=== PATIENT | female | born 1950 | race Caucasian/White ===

== ENCOUNTER 2023-03-23 07:19 | Outpatient (OUT) | payer MEDICARE, SELFPAY ==
[2023-03-23 07:58] LABS: Basophils Absolute Auto 0.1 10^3/uL (0.0-0.1); Basophils Percent Auto 0.5 % (0.2-2.0); Eosinophils Absolute Auto 0.3 10^3/uL (0.0-0.7); Eosinophils Percent Auto 2.8 % (0.9-7.0); Hematocrit 37.1 % (36.0-48.0); Hemoglobin 12.1 g/dL (12.0-16.0); Immature Granulocytes Abs Auto 0.05 10^3/uL (0.00-0.03); Immature Granulocytes Pct Auto 0.5 % (0.0-0.5); Lymphocytes Absolute Auto 1.7 10^3/uL (1.2-3.8); Lymphocytes Percent Auto 17.6 % (20.5-60.0); Mean Corpuscular HGB Conc 32.6 g/dL (29.9-35.2); Mean Corpuscular Hemoglobin 32.1 pg (26.7-34.0); Mean Corpuscular Volume 98.4 fL (81.0-99.0); Mean Platelet Volume 9.7 fL (9.5-13.5); Monocytes Absolute Auto 0.7 10^3/uL (0.3-0.8); Monocytes Percent Auto 7.6 % (1.7-12.0); Neutrophils Absolute Auto 6.9 10^3/uL (1.4-6.5); Platelet Count 232 10^3/uL (150-450); Red Blood Count 3.77 10^6/uL (4.20-5.40); Red Cell Distribution Width 13.7 % (11.0-15.0); White Blood Count 9.7 10^3/uL (4.0-11.0)
[2023-03-23 08:17] LABS: Estimated Average Glucose 128 mg/dL; Glycohemoglobin A1C 6.1 % (4.5-6.2)
[2023-03-23 12:11] LABS: Alanine Aminotransferase 12 U/L (14-59); Albumin Globulin Ratio 0.8; Albumin Level 3.3 g/dL (3.4-5.0); Alkaline Phosphatase 96 U/L (46-116); Anion Gap 15.4; Aspartate Amino Transferase 17 U/L (15-37); BUN Creatinine Ratio 17.9; Bilirubin Total 0.5 mg/dL (0.2-1.0); Calcium 9.3 mg/dL (8.5-10.1); Carbon Dioxide 19.9 mmol/L (21.0-32.0); Chloride 109 mmol/L (98-107); Chol HDL Ratio 2.3; Cholesterol 155 mg/dL (<=200); Estimated GFR (African America 30 (>=60); Estimated GFR (Non-African Ame 25 (>=60); Free T3 2.06 pg/mL (2.18-3.98); Globulin 4.2 g/dL; Glucose 97 mg/dL (74-106); HDL Cholesterol 68 mg/dL (40-60); Potassium 4.3 mmol/L (3.5-5.1); Sodium 140 mmol/L (136-145); Thyroid Stimulating Hormone 1.892 uIU/mL (0.358-3.740); Total Protein 7.5 g/dL (6.4-8.2); Triglycerides 96 mg/dL (<=150); VLDL CHOLESTEROL 19.2 mg/dL
[2023-03-24 11:13] LABS: Insulin 9.4 uIU/mL (2.6-24.9)
== END 2023-03-23 07:20 | disposition home or self-care (01) ==
LOC: LAB 07:19
PROVIDERS: PCP Family Medicine; Visit Provider Family Medicine
DX: I10 Essential (primary) hypertension (principal); E11.9 Type 2 diabetes mellitus without complications; K21.9 Gastro-esophageal reflux disease without esophagitis; G45.8 Other transient cerebral ischemic attacks and related syndromes; E78.5 Hyperlipidemia, unspecified; D64.9 Anemia, unspecified; E55.9 Vitamin D deficiency, unspecified; R47.1 Dysarthria and anarthria
CPT/HCPCS: 36415; 80053; 80061; 82306; 82607; 82728; 82746; 83036; 83525; 83540; 83880; 84436; 84443; 84481; 85025

== ENCOUNTER 2023-05-22 07:30 | Outpatient (OUT) | payer MEDICARE, SELFPAY ==
[2023-05-22 08:10] LABS: Bilirubin Urine NEGATIVE (NEGATIVE); Blood Urine NEGATIVE (NEGATIVE); Clarity Urine CLEAR (CLEAR); Color Urine DK. ORANGE (YELLOW); Glucose Urine UA NEGATIVE (NEGATIVE); Ketones Urine NEGATIVE (NEGATIVE); Leukocyte Esterase Urine SMALL (NEGATIVE); Nitrite Urine POSITIVE (NEGATIVE); Protein Urine TRACE mg/dL (NEG/TRACE); pH Urine 5.5 (5.0-9.0)
[2023-05-22 08:36] LABS: Bacteria Urine TRACE #/HPF (NONE SEEN); Mucus Urine NONE SEEN (NONE SEEN); RBC Urine NONE SEEN #/HPF (0-2); Squamous Epithelial Cell Urine FEW #/LPF (NONE/RARE)
[2023-05-22 08:38] LABS: Renal Epithelial Cells Urine RARE #/LPF (NONE SEEN)
[2023-05-22 08:39] LABS: Urine Culture Indicated ALREADY ORDERED
== END 2023-05-22 07:31 | disposition home or self-care (01) ==
LOC: LAB 07:31
PROVIDERS: PCP Family Medicine; Visit Provider Family Medicine
DX: N39.0 Urinary tract infection, site not specified (principal)
CPT/HCPCS: 81001; 87086; 87150; 87186

== ENCOUNTER 2023-06-18 08:11 | Outpatient (OUT) | payer MEDICARE, SELFPAY ==
--- NOTE | 2023-06-18 08:15 | VEIN_ITS ---
Patient: EDIN SAMANIEGO Exam Date: 06/18/2023 : 1950 Gender:F Ordering : DR Alvaro Harp . Admission #: [id number] Family : Order #: [id number] CLICK HERE TO VIEW EXAM RADIOLOGY REPORT PROCEDURE: VC EXT VENOUS REFLUX ANGELIQUE LMTD COMPARISON: None. INDICATIONS: Localized edema R60.0 TECHNIQUE: Duplex imaging of the lower extremity to assess the deep and superficial venous system for the presence of deep or superficial venous incompetence and to document the location and severity of disease. The study includes evaluation of the great saphenous vein (GSV), anterior accessory saphenous vein (AASV) and small saphenous vein (SSV). Patient scanned in reverse Trendelenburg and standing. FINDINGS: RIGHT LOWER EXTREMITY: Saphenofemoral Junction Reflux: Yes 6.0mm 0.3 sec GSV: Diam (mm) Reflux/ Time (sec) Proximal Thigh 5.9 Yes 0.4 Mid Thigh 3.3 No Distal Thigh 3.2 Yes 0.3 Prox Calf 3.0 Yes 0.3 Mid Calf 3.3 Yes 0.5 Saphenopopliteal Junction Reflux: 5.0mm Yes 0.4 SSV: Proximal Calf 6.2 Yes 0.4 Mid Calf 2.5 Yes 0.3 AASV: Not present Thrombi: No acute or chronic thrombus. Compressibility: Normal. Flow: Mild deep venous reflux. Fitting Room Operator: Dist medial lower leg 5.3 mm with 0.7s reflux. Tech Note: Incompetent varicose vein proximal medial lower leg measures 2.4 mm with 0.4s reflux. LEFT LOWER EXTREMITY: Saphenofemoral Junction Reflux: Yes 6.6 mm 0.3 sec GSV: Diam (mm) Reflux/Time (sec) Proximal Thigh 5.7 Yes 0.3 Mid Thigh 3.6 No Distal Thigh 3.2 Yes 0.5 Prox Calf 1.7 Yes 0.8 Mid Calf 1.6 Yes 0.2 Saphenopopliteal Junction Relux: 2.9 mm Yes 0.5 SSV: Proximal Calf 3.0 Yes 0.2 Mid Calf 3.3 Yes 0.4 AASV: Proximal Thigh 3.4 Yes 0.2 Mid Thigh 3.5 Yes 0.3 Distal Thigh Thrombi: Small segment of partial chronic thrombus in prox SSV. Compressibility: Partial thrombus proximal SSV. Flow: Minimal deep venous reflux. Fitting Room Operator: Distal medial lower leg 2.4 mm with 0.6s reflux. Tech Note: Varicose vein mid medial lower leg measures 1.9 mm without reflux. CONCLUSION: 1. Minimal right and mild left great saphenous vein venous insufficiency 2. Small segment partial chronic thrombus left small saphenous vein 3. Mild right and minimal left deep vein reflux 4. Incompetent right leg perforating vein measuring 5.3 mm Dictated by: Jesu Solano MD on 06/18/2023 at 10:31 Approved by: Jesu Solano MD on 06/18/2023 at 10:33
== END 2023-06-18 08:12 | disposition home or self-care (01) ==
LOC: VC 08:12
PROVIDERS: PCP Family Medicine; Visit Provider Family Medicine
DX: R60.0 Localized edema (principal)
CPT/HCPCS: 93970

== ENCOUNTER 2023-08-21 08:38 | Outpatient (OUT) | payer MEDICARE, SELFPAY ==
--- NOTE | 2023-08-21 08:41 | MR_ITS ---
The [address] [address] Patient Name: EDIN SAMANIEGO MRN: [id number] date: 1950 Sex: F Assigned Patient Location: MRI Current Patient Location: MRI Accession/Order Number: [id number] Exam Date: 08/21/2023 08:55 Report Date: 08/21/2023 10:12 At the request of: KRZYSZTOF THOMPSON Procedure: MR head/brain wo con EXAM: MR head/brain wo con HISTORY: Tension Headache G44.209 COMPARISON: November 2022 MRI brain TECHNIQUE: Sagittal T1, axial T2, axial flair, axial DWI, axial T1, axial GRE FINDINGS: Subtle 4 mm diffusion hyperintensity left central white matter. 3, 4 mm additional areas of diffusion hyperintensity in left inferior cerebellum. There is mild to moderate parenchymal volume loss. There is moderate, patchy T2 hyperintensity in the central central white matter, periventricular white matter, and donavon. Focal encephalomalacia left occipital and parietal lobes. Remote lacunar infarcts of the basal ganglia, thalami, and cerebral hemispheres. There is no mass, mass effect, nor hydrocephalus. The vascular flow voids are patent. The extra-axial structures appear normal. The internal auditory canals and mastoid air cells appear normal. There is mild maxillary and ethmoid sinus mucosal thickening. The orbits, sella, and craniocervical junction appear unremarkable. MR/MR head/brain wo con IMPRESSION: Subtle areas of diffusion hyperintensity left central white matter and left inferior cerebellum. These are dark on the ADC map and favor subacute small infarcts. Moderate underlying T2 hyperintensity white matter and donavon. Most likely sequela small vessel ischemic change or other demyelinating process. Remote appearing lacunar infarcts of the basal ganglia, thalami, and cerebellar hemispheres. 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
== END 2023-08-21 08:39 | disposition home or self-care (01) ==
LOC: MRI 08:38
PROVIDERS: PCP Family Medicine; Visit Provider Family Medicine
DX: G44.209 Tension-type headache, unspecified, not intractable (principal)
CPT/HCPCS: 70551

== ENCOUNTER 2023-08-23 13:01 | Outpatient (OUT) | payer MEDICARE, SELFPAY ==
--- NOTE | 2023-08-23 | MM_ITS ---
Patient Name: EDIN SAMANIEGO MR#: [id number] : 1950 Exam Date: 08/23/2023 Ordering Doctor: DR KRZYSZTOF THOMPSON . RADIOLOGY REPORT PROCEDURE: MM TOMOSYNTHESIS SCREENING BI COMPARISON: MG MAMM SCREEN 3D ANGELIQUE CAD, 10/27/2021. MG MAMM SCREEN ANGELIQUE W CAD, 10/22/2020. INDICATIONS: Angelique Screening Mammogram Calculator Name NCI Breast Cancer Risk Assessment Tool 5 Year Breast Cancer Risk 1.40% Lifetime Breast Cancer Risk 3.00% Personal Breast Cancer No Personal Ovarian Cancer No Treatments None Family Cancers Aunt-maternal with breast cancer at age 40. LOCATION: [facility] BREAST COMPOSITION: Scattered areas fibroglandular density. FINDINGS: DIAGNOSTIC CATEGORY 2--BENIGN FINDING. NO CHANGE FROM COMPARISON. Scattered benign-appearing calcifications are present. Scattered benign-appearing lymph nodes are present. RIGHT BREAST: No significant suspicious finding. LEFT BREAST: No significant suspicious finding. RECOMMENDATIONS: ROUTINE MAMMOGRAM AND CLINICAL EVALUATION IN 12 MONTHS. PLEASE NOTE: A NORMAL MAMMOGRAM DOES NOT EXCLUDE THE POSSIBILITY OF BREAST CANCER. A CLINICALLY SUSPICIOUS PALPABLE LUMP SHOULD BE BIOPSIED. Dictated by: Jesu Solano MD on 08/24/2023 at 08:24 Approved by: Jesu Solano MD on 08/24/2023 at 08:28
== END 2023-08-23 13:02 | disposition home or self-care (01) ==
LOC: MAMMO 13:01
PROVIDERS: PCP Family Medicine; Visit Provider Family Medicine
DX: Z12.31 Encounter for screening mammogram for malignant neoplasm of breast (principal); Z80.3 Family history of malignant neoplasm of breast
CPT/HCPCS: 77063; 77067

== ENCOUNTER 2023-10-03 16:24 | Outpatient (REF) | payer MEDICARE, SELFPAY ==
--- OUTSIDE RECORDS SUMMARY | 2023-10-03 16:29 | XMS_ITS | CCD ---
Author Name Unknown Address [address] [facility] [address] [place] [address] Organization [facility] Care Team Providers Care Salvager Helper Name Role Phone PHYSICIAN, DEFAULT Admitting Unavailable PHYSICIAN, DEFAULT Attending Unavailable MONTSE MARIA Primary Care Unavailable PHYSICIAN, DEFAULT Admitting Unavailable PHYSICIAN, DEFAULT Attending Unavailable MONTSE MARIA Primary Care Unavailable PHYSICIAN, DEFAULT Admitting Unavailable PHYSICIAN, DEFAULT Attending Unavailable MONTSE MARIA Primary Care Unavailable PHYSICIAN, DEFAULT Admitting Unavailable PHYSICIAN, DEFAULT Attending Unavailable MONTSE MARIA Primary Care Unavailable UNKNOWN, PROVIDER Admitting Unavailable UNKNOWN, PROVIDER Attending Unavailable KRZYSZTOF HARP Referring Unavailable JASONY, KRZYSZTOF Primary Care Unavailable RODRIGUEZ RIVERA Attending Unavailable HOY ., DR BLANKENSHIP Attending Unavailable HOY ., DR BLANKENSHIP Consulting Unavailable HOY ., DR BLANKENSHIP Primary Care Unavailable HOY ., DR BLANKENSHIP Admitting Unavailable CONDE, DR GODWIN Cardona Consulting Unavailable HOY ., DR BLANKENSHIP Consulting Unavailable HOY ., DR BLANKENSHIP Attending Unavailable HOY ., DR BLANKENSHIP Primary Care Unavailable HOY ., DR BLANKENSHIP Admm[place] Unavailable ZIEBER, DR VISHNU Erazo Consulting Unavailable CHRISTIANO MORALES Consulting Unavailable HOY ., DR BLANKENSHIP [place] Unavailable HOY ., DR BLANKENSHIP Attending Unavailable HOY ., DR BLANKENSHIP Consulting Unavailable HOY ., DR BLANKENSHIP Primary Care Unavailable ZIEBER, DR VISHNU Erazo Consulting Unavailable HOY ., DR BLANKENSHIP Consulting Unavailable HOY ., DR BLANKENSHIP Attending Unavailable HOY ., DR BLANKENSHIP Primary Care Unavailable HOY ., DR BLANKENSHIP Admitting Unavailable HOY ., DR BLANKENSHIP Attending Unavailable HOY ., DR BLANKENSHIP Consulting Unavailable HOY ., DR BLANKENSHIP Primary Care Unavailable HOY ., DR BLANKENSHIP Admitting Unavailable LEONEL ., APRIL Admitting Unavailable LENOEL ., APRIL Attending Unavailable HOY ., DR BLANKENSHIP Primary Care Unavailable ZIEBER, DR VISHNU Erazo Consulting Unavailable HAY ., DR STRATTON Consulting Unavailable DERMESSI, GONZALEZ Consulting Unavailable LEONEL ., APRIL Consulting Unavailable HOY ., DR BLANKENSHIP Attending Unavailable HOY ., DR BLANKENSHIP Consulting Unavailable HOY ., DR BLANKENSHIP Primary Care Unavailable HOY ., DR BLANKENSHIP Admitting Unavailable ZIEBER, DR VISHNU Erazo Consulting Unavailable PAY ., DR JACINTO Consulting Unavailable JUMMA, MOJOSE Consulting Unavailable BOYD, VANESSA Consulting Unavailcyndy ELAINE, RAVEN Consulting Unavailable COATNATALIIA Leos Consulting Unavailable HOY ., DR BLANKENSHIP Admitting Unavailable HOY ., DR BLANKENSHIP Attending Unavailable HOY ., DR BLANKENSHIP Primary Care Unavailable HOY ., DR BLANKENSHIP Consulting Unavailable SAMSA ., JN Admitting Unavailable HOY ., DR BLANKENSHIP Primary Care Unavailable SAMSA ., JN Attending Unavailable HOY ., DR BLANKENSHIP Consulting Unavailable HOY ., DR BLANKENSHIP Attending Unavailable HOY ., DR BLANKENSHIP Primary Care Unavailable HOY ., DR BLANKENSHIP [place] Unavailable HOY ., DR BLANKENSHIP Consulting Unavailable HOY ., DR BLANKENSHIP Attending Unavailable HOY ., DR BLANKENSHIP Primary Care Unavailable HOY ., DR BLANKENSHIP [place] Unavailable HOY ., DR BLANKENSHIP Attending Unavailable HOY ., DR BLANKENSHIP Consulting Unavailable HOY ., DR BLANKENSHIP Primary Care Unavailable HOY ., DR BLANKENSHIP [place] Unavailable ZIEBER, DR VISHNU Erazo Consulting Unavailable HOY ., DR BLANKENSHIP [place] Unavailable HOY ., DR BLANKENSHIP Attending Unavailable HOY ., DR BLANKENSHIP Consulting Unavailable HOY ., DR BLANKENSHIP Primary Care Unavailable ZIEBER, DR VISHNU Erazo Consulting Unavailable HOY ., DR BLANKENSHIP Attending Unavailable HOY ., DR BLANKENSHIP Consulting Unavailable HOY ., DR BLANKENSHIP Primary Care Unavailable HOY ., DR BLANKENSHIP [place] Unavailable HOY ., DR BLANKENSHIP [place] Unavailable HOY ., DR BLANKENSHIP Attending Unavailable HOY ., DR BLANKENSHIP Consulting Unavailable HOY ., DR BLANKENSHIP Primary Care Unavailable WEST, DR GODWIN Cardona Consulting Unavailable HOY ., DR BLANKENSHIP Attending Unavailable HOY ., DR BLANKENSHIP Consulting Unavailable HOY ., DR BLANKENSHIP Primary Care Unavailable HOY ., DR BLANKENSHIP Ad[place] Unavailable WEST, DR GODWIN Cardona Consulting Unavailable HOY ., DR BLANKENSHIP Attending Unavailable HOY ., DR BLANKENSHIP Consulting Unavailable HOY ., DR BLANKENSHIP Primary Care Unavailable DR KRZYSZTOF HUDSON Admitting Unavailable EDWIN, DR VISHNU Erazo Consulting Unavailable LEONEL Kenny, APRIL Consulting Unavailable LEONEL Kenny, APRIL Admitting Unavailable LEONEL Kenny, APRIL Attending Unavailable DONNA Kenny, DR BLANKENSHIP Primary Care Unavailable DONNA Kenny, DR BLANKENSHIP Admitting Unavailable DONNA Kenny, DR BLANKENSHIP Consulting Unavailable DONNA Kenny, DR BLANKENSHIP Attending Unavailable DONNA ., DR BLANKENSHIP Primary Care Unavailable Allergies Allergy Classification Reported Allergen(s) Allergy Type Date of Onset Reaction(s) Facility (3 sources) Morphine; 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: [MORPHINE] Drug Allergy 7 [facility] Repository (3 sources) NSAIDs; 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: [NSAIDS (NON-STEROIDAL ANTI-INFLAMMATORY DRUG)] Drug allergy (disorder) 9 [facility] Repository (1 source) Penicillin Drug Allergy 9 [facility] Repository (1 source) predniSONE Drug Allergy 9 [facility] Repository (2 sources) Iodinated Contrast- Oral and IV Dye Drug allergy (disorder) 5 [facility] Repository (2 sources) Penicillins; 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: [PENICILLINS] Propensity to adverse reactions to drug (disorder) 5 [facility] Repository (1 source) IODINATED CONTRAST MEDIA; 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: [IODINATED CONTRAST MEDIA] Propensity to adverse reactions to drug (disorder) 3 [facility] Repository (1 source) levoFLOXacin Drug Allergy 3 [facility] Repository (1 source) meloxicam Drug Allergy 3 [facility] Repository Problems Active Problems Problem Classification Problem Date Documented Da te Episodic/Chronic Abdominal hernia (1 source) Diaphragmatic hernia without obstruction or gangrene; 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: [DIAPH HERNIA W/O OBST/GANGRENE] Onset: 10-25-2022 Episodic Abdominal pain (1 source) Generalized abdominal pain; 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: [GENERALIZED ABDOMINAL PAIN] Onset: 10-25-2022 Episodic Acute and unspecified renal failure (1 source) Acute kidney failure, unspecified; 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: [ACUTE KIDNEY FAILURE UNSPECIFIED] Onset: 12-15-2022 Episodic Acute cerebrovascular disease (3 sources) Cerebral infarction, unspecified; 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: [Cerebral infarction due to unspecified occlusion or stenosis of left carotid arteries] Onset: 12-15-2022 Chronic Allergic reactions (1 source) Radiographic dye allergy status; 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: [RADIOGRAPHIC DYE ALLERGY STATUS] Onset: 11-19-2018 Episodic Calculus of urinary tract (1 source) Personal history of urinary calculi; 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: [PERSONAL HISTORY OF URINARY CALCULI] Onset: 01-17-2023 Episodic Chronic kidney disease (1 source) Chronic kidney disease, unspecified; 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: [CHRONIC KIDNEY DISEASE UNSPECIFIED] Onset: 12-18-2022 Chronic Chronic obstructive pulmonary disease and bronchiectasis (4 sources) Chronic obstructive pulmonary disease, unspecified; 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: [COPD UNSPECIFIED] Onset: 09-25-2022 Chronic Congestive heart failure; nonhypertensive (5 sources) Unspecified diastolic (congestive) heart failure; 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: [Acute combined systolic (congestive) and diastolic (congestive) heart failure] Onset: 10-20-2022 Chronic Deficiency and other anemia (1 source) Anemia, unspecified; 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: [ANEMIA UNSPECIFIED] Onset: 01-17-2023 Episodic Deficiency and other anemia (1 source) Iron deficiency anemia, unspecified; 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: [IRON DEFICIENCY ANEMIA UNSPECIFIED] Onset: 10-25-2022 Episodic Diabetes mellitus without complication (1 source) Type 2 diabetes mellitus without complications; 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: [TYPE 2 DM WITHOUT COMPLICATIONS] Onset: 10-19-2022 Chronic Diabetes mellitus without complication (2 sources) Prediabetes; 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: [Other abnormal glucose] Onset: 11-14-2022 Episodic Disorders of lipid metabolism (2 sources) Pure hypercholesterolemia , unspecified; 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: [Hyperlipidemia, unspecified] Onset: 11-14-2022 Chronic Esophageal disorders (1 source) Gastro-esophageal reflux disease without esophagitis; 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: [GERD WITHOUT ESOPHAGITIS] Onset: 01-17-2023 Chronic Essential hypertension (6 sources) Essential (primary) hypertension; 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: [ESSENTIAL (PRIMARY) HYPERTENSION] Onset: 11-19-2018 Chronic Fluid and electrolyte disorders (2 sources) Dehydration; 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: [Hyperkalemia] Onset: 10-25-2022 Episodic Genitourinary symptoms and ill-defined conditions (1 source) Personal history of urinary (tract) infections; 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: [PERS HX URINARY TRACT INFECTIONS] Onset: 01-17-2023 Episodic Heart valve disorders (1 source) Rheumatic tricuspid insufficiency; 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: [RHEUMATIC TRICUSPID INSUFFICIENCY] Onset: 10-25-2022 Chronic Hypertension with complications and secondary hypertension (5 sources) Hypertensive heart disease with heart failure; 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: [Hypertensive chronic kidney disease with stage 1 through stage 4 chronic kidney disease, or unspecified chronic kidney disease] Onset: 12-15-2022 Chronic Malaise and fatigue (1 source) Chronic fatigue, unspecified; 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: [CHRONIC FATIGUE UNSPECIFIED] Onset: 01-17-2023 Chronic Malaise and fatigue (4 sources) Other fatigue; 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: [OTHER FATIGUE] Onset: 11-13-2022 Episodic Nonspecific chest pain (5 sources) Chest pain, unspecified; 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: [CHEST PAIN UNSPECIFIED] Onset: 10-25-2022 Episodic Nutritional deficiencies (1 source) Vitamin D deficiency, unspecified; 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: [VITAMIN D DEFICIENCY UNSPECIFIED] Onset: 01-17-2023 Chronic Occlusion or stenosis of precerebral arteries (5 sources) Occlusion and stenosis of unspecified carotid artery; 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: [Occlusion and stenosis of bilateral carotid arteries] Onset: 05-30-2022 Chronic Osteoarthritis (1 source) Unspecified osteoarthritis, unspecified site; 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: [UNSPECIFIED OSTEOARTHRITIS UNS SITE] Onset: 01-17-2023 Chronic Osteoporosis (1 source) Age-related osteoporosis without current pathological fracture; 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: [AGE-REL OSTEOPOR W/O CURR PATH FX] Onset: 01-17-2023 Chronic Other aftercare (2 sources) long term care pharmacist (current) use of aspirin; 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: [M[facility] (CURRENT) USE OF ASPIRIN] Onset: 11-19-2018 Episodic Other aftercare (1 source) Other equipment operator intermodal yard (current) drug therapy; 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: [OTH METER REPAIRER CURRENT DRUG THERAPY] Onset: 01-17-2023 Episodic Other circulatory disease (1 source) Personal history of transient ischemic attack (TIA), and cerebral infarction without residual deficits; 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: [PERS HX TIA AND CI NO RESID DEFICIT] Onset: 12-18-2022 Episodic Other connective tissue disease (4 sources) Pain in left foot; 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: [PAIN IN LEFT FOOT] Onset: 01-15-2023 Episodic Other connective tissue disease (1 source) Other specified soft tissue disorders; 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: [OTHER SPEC SOFT TISSUE DISORDERS] Onset: 01-17-2023 Episodic Other connective tissue disease (1 source) Fibromyalgia; 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: [FIBROMYALGIA] Onset: 01-17-2023 Episodic Other hematologic conditions (4 sources) Other specified abnormalities of plasma proteins; 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: [OTH SPEC ABNORM PLASMA PROTEINS] Onset: 10-19-2022 Episodic Other hereditary and degenerative nervous system conditions (1 source) Restless legs syndrome; 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: [RESTLESS LEGS SYNDROME] Onset: 01-17-2023 Chronic Other lower respiratory disease (6 sources) Shortness of breath; 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: [SHORTNESS OF BREATH] Onset: 11-19-2018 Episodic Other lower respiratory disease (3 sources) Dyspnea, unspecified; 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: [Dyspnea, unspecified] Onset: 11-14-2022 Episodic Other lower respiratory disease (1 source) Personal history of pneumonia (recurrent); 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: [PERSONAL HX OF PNEUMONIA RECURRENT] Onset: 12-18-2022 Episodic Other nervous system disorders (3 sources) Aphasia; 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: [APHASIA] Onset: 11-25-2022 Chronic Other nervous system disorders (1 source) Ataxia, unspecified; 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: [ATAXIA UNSPECIFIED] Onset: 12-15-2022 Episodic Other non-traumatic joint disorders (1 source) Pain in left ankle and joints of left foot; 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: [PAIN IN LEFT ANKLE] Onset: 01-17-2023 Episodic Other screening for suspected conditions (not mental disorders or infectious disease) (6 sources) Abnormal result of other cardiovascular function study; 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: [Other specified abnormal findings of blood chemistry] Onset: 11-19-2018 Episodic Other skin disorders (4 sources) Nonscarring hair loss, unspecified; 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: [NONSCARRING HAIR LOSS UNSPECIFIED] Onset: 01-10-2023 Episodic Other upper respiratory infections (1 source) Acute sinusitis, unspecified; 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: [ACUTE SINUSITIS UNSPECIFIED] Onset: 10-19-2022 Episodic Pancreatic disorders (not diabetes) (1 source) Other chronic pancreatitis; 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: [OTHER CHRONIC PANCREATITIS] Onset: 11-19-2018 Chronic Residual codes; unclassified (1 source) Acquired absence of both cervix and uterus; 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: [ACQUIRED ABSENCE BOTH CERVIX AND UTERUS] Onset: 01-17-2023 Episodic Residual codes; unclassified (1 source) Personal history of other specified conditions; 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: [PERSONAL HISTORY OTH SPEC CONDITION] Onset: 12-18-2022 Episodic Residual codes; unclassified (5 sources) Edema, unspecified; 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: [EDEMA UNSPECIFIED] Onset: 10-25-2022 Episodic Unclassified (2 sources) ABN STRESS Onset: 11-19-2018 Unclassified (1 source) CHRN KIDNEY DISEASE STG 3 UNSP; 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: [CHRN KIDNEY DISEASE STG 3 UNSP] Onset: 01-17-2023 Unclassified (1 source) CONTACT W/AND (SUSP) EXPOS COVID-19; 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: [CONTACT W/AND (SUSP) EXPOS COVID-19] Onset: 12-15-2022 Unclassified (1 source) COUGH, UNSPECIFIED; 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: [COUGH, UNSPECIFIED] Onset: 12-15-2022 Unclassified (1 source) PERSONAL HISTORY OF COVID-19; 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: [PERSONAL HISTORY OF COVID-19] Onset: 12-15-2022 Viral infection (1 source) COVID-19; 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: [COVID-19] Onset: 09-30-2022 Past or Other Problems Problem Classification Problem Date Documented Da te Episodic/Chronic Other gastrointestinal disorders (4 sources) Constipation, unspecified; 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: [CONSTIPATION UNSPECIFIED] Onset: 02-14-2022 Episodic Other nervous system disorders (4 sources) Dysarthria and anarthria; 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: [DYSARTHRIA AND ANARTHRIA] Onset: 05-26-2022 Episodic Results Test Name Value Interpretation Reference Range Facility US AYESHA DOP LEG LTon 01-16-20 23 US AYESHA DOP LEG LT EXAMINATION: US AYESHA DOP LEG LT HISTORY: Pain of left lower leg COMPARISON: US venous Doppler leg bilateral 11/17/2020 FINDINGS: REGION: Left lower extremity THROMBI: None. COMPRESSIBILITY: Normal compressibility. FLOW: Normal waveform and antegrade flow between 5 and 20 cm/s. OTHER: None. IMPRESSION: 1. No deep vein thrombus within the left lower extremity. Electronically authenticated by: VISHNU MARIE Date: 2023-01-15 08:25 Normal [facility] XR ANKLE LT MIN 3 Von 2022 XR ANKLE LT MIN 3 V EXAM: XR FOOT LT MIN 3 VIEWS, XR ANKLE LT MIN 3 V HISTORY: Pain. COMPARISON: Left foot radiographs 05/11/2022. TECHNIQUE: Three views of the left foot and ankle. FINDINGS: There is mild soft tissue swelling in the left forefoot. No acute fracture. Mild osteoarthritis at the first MTP joint and first interphalangeal articulation. Joint spaces in the midfoot are maintained. IMPRESSION: 1. Mild soft tissue swelling in the forefoot without acute bony abnormality. 2. Stable mild osteoarthritis of the first ray. Electronically authenticated by: GONZALEZ PATEL Date: 2023-01-15 07:28 Normal [facility] VITAMIN B1 (THIAMINE)on Vit. B1, Whole Blood 118.1 nmol/L Normal 66.5-200.0 [facility] Comment on above: Performed By: #### C BC #### [facility] [address] [place] [address] Dr. Ekta Funk BNPon 01-10-2023 Natriuretic peptide B (Bld) [Mass/Vol] 980.0 pg/mL Critically high <=900.0 [facility] Comment on above: Performed By: #### C VDTBH #### [facility] [address] [place] [address] Dr. Ekta Funk CBC AUTO DIFFon 01-10-2023 BASO # 0.1 103/ul Normal 0.0-0.1 [facility] Comment on above: Performed By: #### C MP #### [facility] [address] [place] [address] Dr. Ekta Funk Basophils/100 WBC (Bld) 1.0 % Normal 0.2-2.0 [facility] Comment on above: Performed By: #### C MP #### [facility] [address] [place] [address] Dr. Ekta Funk EO # 0.4 103/ul Normal 0.0-0.7 [facility] Comment on above: Performed By: #### C MP #### [facility] [address] [place] [address] Dr. Ekta Funk Eosinophils/100 WBC (Bld) 3.7 % Normal 0.9-7.0 [facility] Comment on above: Performed By: #### C MP #### [facility] [address] [place] [address] Dr. Ekta Funk Erythrocyte distribution width (RBC) [Ratio] 13.2 % Normal 11.0-15.0 [facility] Comment on above: Performed By: #### C MP #### [facility] [address] [place] [address] Dr. Ekta Funk Hematocrit (Bld) [Volume fraction] 35.1 % Critically low 36.0-48.0 [facility] Comment on above: Performed By: #### C MP #### [facility] [address] [place] [address] Dr. Ekta Funk Hemoglobin (Bld) [Mass/Vol] 11.3 g/dL Critically low 12.0-16.0 [facility] Comment on above: Performed By: #### C MP #### [facility] [address] [place] [address] Dr. Ekta Fukn IG # 0.04 10e3/ul Critically high 0.00-0.03 [facility] Comment on above: Performed By: #### C MP #### [facility] [address] [place] [address] Dr. Ekta Funk IG % 0.4 % Normal 0.0-0.5 [facility] Comment on above: Performed By: #### C MP #### [facility] [address] [place] [address] Dr. Ekta Funk LYMPH # 2.0 103/ul Normal 1.2-3.8 [facility] Comment on above: Performed By: #### C MP #### [facility] [address] [place] [address] Dr. Ekta Funk Lymphocytes/100 WBC (Bld) 20.8 % Normal 20.5-60.0 [facility] Comment on above: Performed By: #### C MP #### [facility] [address] [place] [address] Dr. Ekta Funk MANUAL DIFF REQ NO Normal [facility] Comment on above: Performed By: #### C MP #### [facility] [address] [place] [address] Dr. Ekta Funk MCH (RBC) [Entitic mass] 32.3 pg Normal 26.7-34.0 [facility] Comment on above: Performed By: #### C MP #### [facility] [address] [place] [address] Dr. Ekta Funk MCHC (RBC) [Mass/Vol] 32.2 g/dL Normal 29.9-35.2 [facility] Comment on above: Performed By: #### C MP #### [facility] [address] [place] [address] Dr. Ekta Funk MCV (RBC) [Entitic vol] 100.3 fL Critically high 81.0-99.0 [facility] Comment on above: Performed By: #### C MP #### [facility] [address] [place] [address] Dr. Ekta Funk MONO # 0.8 103/ul Normal 0.3-0.8 [facility] Comment on above: Performed By: #### C MP #### [facility] [address] [place] [address] Dr. Ekta Funk Monocytes/100 WBC (Bld) 7.9 % Normal 1.7-12.0 [facility] Comment on above: Performed By: #### C MP #### [facility] [address] [place] [address] Dr. Ekta Funk NEUT # 6.4 103/ul Normal 1.4-6.5 [facility] Comment on above: Performed By: #### C MP #### [facility] [address] [place] [address] Dr. Ekta Funk Neutrophils/100 WBC (Bld) 66.2 % Normal 43.0-75.0 [facility] Comment on above: Performed By: #### C MP #### [facility] [address] [place] [address] Dr. Ekta Funk Platelet mean volume (Bld) [Entitic vol] 9.6 fL Normal 9.5-13.5 [facility] Comment on above: Performed By: #### C MP #### [facility] [address] [place] [address] Dr. Ekta Funk PLT 255 103/ul Normal 150-450 [facility] Comment on above: Performed By: #### C MP #### [facility] [address] [address] [address] Ekta Funk RBC 3.50 106/ul Critically low 4.20-5.40 [facility] Comment on above: Performed By: #### C MP #### [facility] [address] [address] [address] Ekta Funk WBC 9.7 103/ul Normal 4.0-11.0 [facility] Comment on above: Performed By: #### C MP #### [facility] [address] [address] [address] Ekta Funk CRPon 01-10-2023 CRP [Mass/Vol] mg/L Normal <=1.0 [facility] Comment on above: Performed By: #### C BC #### [facility] [address] [place] [address] Dr. Ekta Funk FREE THYROXINE INDEX T7on FTI 2.62 Normal 1.30-4.50 [facility] Comment on above: Performed By: #### C BC #### [facility] [address] [place] [address] Dr. Ekta Funk T3U 32.0 % Normal 30.0-39.0 [facility] Comment on above: Performed By: #### C BC #### [facility] [address] [place] [address] Dr. Ekta Funk T4 [Mass/Vol] 8.20 ug/dL Normal 4.80-13.90 [facility] Comment on above: Performed By: #### C BC #### [facility] [address] [place] [address] Dr. Ekta Funk IRONon 01-10-2023 Iron [Mass/Vol] 61.0 ug/dL Normal 50.0-170.0 [facility] Comment on above: Performed By: #### B 12FOL, VITAD, IRON #### [facility] [address] [place] [address] Dr. Ekta Funk PROF 14(COMP METB)on 023 Albumin [Mass/Vol] 2.9 g/dL Critically low 3.4-5.0 [facility] Comment on above: Performed By: #### C VDTBH #### [facility] [address] [address] [address] Ekta Funk Albumin/Globulin [Mass ratio] 0.6 {ratio} Normal [facility] Comment on above: Performed By: #### C VDTBH #### [facility] [address] [address] [address] Ekta Funk ALP [Catalytic activity/Vol] 101 U/L Normal 46-116 [facility] Comment on above: Performed By: #### C VDTBH #### [facility] [address] [place] [address] Dr. Ekta Funk ALT [Catalytic activity/Vol] 16 U/L Normal 14-59 [facility] Comment on above: Performed By: #### C VDTBH #### [facility] [address] [place] [address] Dr. Ekta Funk Anion gap [Moles/Vol] 14.6 mmol/L Normal [facility] Comment on above: Performed By: #### C VDTBH #### [facility] [address] [place] [address] Dr. Ekta Funk AST [Catalytic activity/Vol] 15 U/L Normal 15-37 [facility] Comment on above: Performed By: #### C VDTBH #### [facility] [address] [address] [address] Ekta Funk Bilirubin [Mass/Vol] 0.4 mg/dL Normal 0.2-1.0 [facility] Comment on above: Performed By: #### C VDTBH #### [facility] [address] [address] [address] Ekta Funk Calcium [Mass/Vol] 9.2 mg/dL Normal 8.5-10.1 [facility] Comment on above: Performed By: #### C VDTBH #### [facility] [address] [address] Dr. Ekta Funk Chloride [Moles/Vol] 107 mmol/L Normal 98-107 [facility] Comment on above: Performed By: #### C VDTBH #### [facility] [address] [address] [address] Ekta Funk CO2 [Moles/Vol] 24.4 mmol/L Normal 21.0-32.0 [facility] Comment on above: Performed By: #### C VDTBH #### [facility] [address] [place] [address] Dr. Ekta Funk Creatinine [Mass/Vol] 2.02 mg/dL Critically high 0.55-1.02 [facility] Comment on above: Performed By: #### C VDTBH #### [facility] [address] [place] [address] Dr. Ekta Funk EGFR-AF SURINAMESE 29 mL/min/1.73m2 Critically low >=60 [facility] Comment on above: Performed By: #### C VDTBH #### [facility] [address] [place] [address] Dr. Ekta Funk EGFR-NON AF SURINAMESE 24 mL/min/1.73m2 Critically low >=60 [facility] Comment on above: Performed By: #### C VDTBH #### [facility] [address] [place] [address] Dr. Ekta Funk Globulin (S) [Mass/Vol] 4.5 g/dL Normal [facility] Comment on above: Performed By: #### C VDTBH #### [facility] [address] [place] [address] Dr. Ekta Funk Glucose [Mass/Vol] 103 mg/dL Normal 74-106 [facility] Comment on above: Performed By: #### C VDTBH #### [facility] [address] [place] [address] Dr. Ekta Funk Potassium [Moles/Vol] 5.0 mmol/L Normal 3.5-5.1 [facility] Comment on above: Performed By: #### C VDTBH #### [facility] [address] [place] [address] Dr. Ekta Funk Protein [Mass/Vol] 7.4 g/dL Normal 6.4-8.2 [facility] Comment on above: Performed By: #### C VDTBH #### [facility] [address] [place] [address] Dr. Ekta Funk Sodium [Moles/Vol] 141 mmol/L Normal 136-145 [facility] Comment on above: Performed By: #### C VDTBH #### [facility] [address] [place] [address] Dr. Ekta Funk Urea nitrogen [Mass/Vol] 23.0 mg/dL Critically high 7.0-18.0 [facility] Comment on above: Performed By: #### C VDTBH #### [facility] [address] [place] [address] Dr. Ekta Funk Urea nitrogen/Creatinine [Mass ratio] 11.4 mg/mg Normal [facility] Comment on above: Performed By: #### C VDTBH #### [facility] [address] [place] [address] Dr. Ekta Funk TSHon 01-10-2023 TSH 1.793 uIU/mL Normal 0.358-3.740 [facility] Comment on above: Performed By: #### C VDTBH #### [facility] [address] [place] [address] Dr. Ekta Funk VIT B12 AND FOLATEon 023 Cobalamin (Vitamin B12) [Mass/Vol] 175.0 pg/mL Critically low 193.0-986.0 [facility] Comment on above: Performed By: #### B 12FOL, VITAD, IRON #### [facility] [address] [place] [address] Dr. Ekta Funk FOLATE 10.30 ng/mL Normal 8.60-58.90 [facility] Comment on above: Performed By: #### B 12FOL, VITAD, IRON #### [facility] [address] [place] [address] Dr. Ekta Funk VITAMIN D 25 OHon 01-10-2023 VIT D 25-OH 24.0 ng/mL Normal [facility] Comment on above: Performed By: #### B 12FOL, VITAD, IRON #### [facility] [address], [place] [address] Dr. Ekta Funk VIT D RANGES SEE BELOW Normal [facility] Comment on above: Result Comment: <20 ng/mL Vit D deficient 20 - <30 ng/mL Vit D insufficient 30 - 100 ng/mL Vit D sufficient >100 ng/mL Potential Toxicity Performed By: #### B 12FOL, VITAD, IRON #### [facility] [address] [place], [place] [address] Dr. Ekta Funk Office Visiton 12-15-2022 Follow-up visit [id number] Sheila Mac 1950 F Date Provider Department Center 12/15/2022 [id number] RIVERA [facility] No family history on file Level of Service:45755 AL OFFICE/OUTPATIENT ESTABLISHED MOD MDM 30-39 MIN Reason for Visit and Comments: Follow-up [320493] - Is here f/u stress test pt states she had Bruises all over both legs symptoms stated a week ago also stated legs are swollen and burning Normal [facility] NM STRESS/REST MULTIon 12-05 NM STRESS/REST MULTI Patient: SHEILA MAC Exam Date: 12/05/2022 : 1950 Gender:F Ordering : DR KRZYSZTOF HARP . Admission #: [id number] Family : Order #: [id number] CLICK HERE TO VIEW EXAM RADIOLOGY REPORT PROCEDURE: RADIONUCLIDE IMAGING STRESS/REST MULTI COMPARISON: NM STRESS/REST MULTI, 02/01/2017. NM STRESS/REST MULTI, 12/23/2015. INDICATIONS: Chest pain TECHNIQUE: Exam Description: Stress/Rest one day protocol gated SPECT Rest Imagin.9 mCi Tc-99m Cardiolite IV on 12/05/2022 Stress Imaging 30.4 mCi Tc-99m Cardiolite IV on 12/05/2022 Exercise Protocol: 0.4 mg Lexiscan given IV Heart Rate (bpm): Rest: 90 Max: 117 PMHR: 80 Blood Pressure: Rest: 160/112 Max: 176/116 Symptoms: Rest and peak stress ECG findings were normal and the exercise portion of the study was normal per attending physician Dr. Garcia . For more details please see separate cardiac stress test report. FINDINGS: QUALITY OF STUDY: Excellent. PERFUSION DEFECT: None. LOCATION: N/A SIZE: N/A. SEVERITY: N/A. TYPE: N/A. WALL MOTION: Normal. LV SIZE: Normal. 45 mL. TID / TCD: None; 0.5 LVEF: Normal. Calculated EF 73%. SUMMARY: Myocardial perfusion imaging study is NORMAL. CONCLUSION: 1. Normal nuclear medicine myocardial perfusion scan. Dictated by: Vishnu Marie M.D. on 12/06/2022 at 07:25 Approved by: Vishnu Marie M.D. on 12/06/2022 at 07:[address] [facility] ECHOCARDIO M/2D COMPLETEon 0 11-27-2022 ECHOCARDIO M/2D COMPLETE Patient: SHEILA MAC Exam Date: 11/27/2022 : 1950 Gender:F Ordering : DR KRZYSZTOF HARP . Admission #: [id number] Family : Order #: [id number] CLICK HERE TO VIEW EXAM ECHOCARDIOGRAM REPORT PROCEDURE: CARDIO PULMONARY ECHOCARDIO M/2D COMP COMPARISON: None. DESCRIPTION: COMPLETE ECHOCARDIOGRAM Real-time transthoracic echocardiography with 2D, M-mode, spectral and color flow Doppler performed. QUALITY: Technical quality was good. LEFT VENTRICLE: Normal chamber size. Thickened septal wall. Global left ventricular systolic function is normal. LV EF: Visual estimation of left ventricular ejection fraction is 55% DIASTOLIC: Diastolic function is indeterminate. ATRIAL SEPTUM: LEFT ATRIUM: Normal chamber size. RIGHT ATRIUM: Normal chamber size. RIGHT VENTRICLE: Normal chamber size. Normal right ventricular systolic function. TRICUSPID VALVE: Normal mobility and thickness. No stenosis with trivial regurgitation. Mild pulmonary hypertension. RVSP 38 mmHg MITRAL VALVE: Normal mobility and thickness. No mitral valve prolapse. No evidence of mitral valve stenosis. There is no mitral annular calcification. Trivial mitral regurgitation. AORTIC VALVE: Normal trileaflet appearance. No visible sclerosis. Normal leaflet mobility. No evidence of aortic valve stenosis. No aortic regurgitation. AORTIC ROOT: Normal diameter and appearance. Normal ascending aorta measuring 3.5 cm. PULMONIC VALVE: Normal thickness and mobility. No stenosis. Trivial regurgitation. PERICARDIUM: No evidence of pericardial effusion. IVC: Collapses with inspirations. Normal size. PLEURA: CONCLUSION: 1. Normal ventricular systolic function. LVEF is 55%. 2. No significant valvular dysfunction. 3. Mildly elevated right-sided pressures. 4. No pericardial effusion. Adult Echocardiography Procedure Report Left Ventricle LVEDD (3.7 - 5.6 cm): 4.08 cm LVESD (2.2 - 4.0 cm): 3.21 cm LVIVS thickness (0.6 - 1.2 cm): 1.56 cm LVPW thickness (0.5 - 1.0 cm): 1.11 cm e': 0.09 m/s E - e': 5.85 LVOT Max Gradient: 2.69 mm[Hg], 3.01 mm[Hg] Peak Velocity (LVOT): 0.82 m/s, 0.87 m/s Mean Velocity (LVOT): 0.47 m/s, 0.52 m/s LVOT Diameter 2.03 cm Left Ventricular Ejection Fraction: 55 % Left Atrium LA Volume Index (2D A2C): 39.93 ml, 39.93 ml Left Atrium Systolic Dimension: 2.59 cm Mitral Valve MV E to A Ratio: 0.59 Mitral Valve A-Wave Peak Velocity: 0.85 m/s Mitral Valve E-Wave Peak Velocity: 0.50 m/s Right Ventricle RV Internal Diastolic Dimension: 3.32 cm Aorta AO Root Diam: 3.08 cm Ascending Ao Diam: 3.55 cm Aortic Valve AoV Area (Peak Chris): 2.30 cm2, 2.19 cm2, 2.40 cm2 AoV Area (VTI): 2.58 cm2, 2.31 cm2, 2.92 cm2 Peak Velocity(Antegrade Flow): 1.21 m/s, 1.17 m/s Peak Gradient(Antegrade Flow): 5.88 mm[Hg], 5.47 mm[Hg] Mean Velocity(Antegrade Flow): 0.80 m/s, 0.81 m/s Mean Gradient(Antegrade Flow): 2.94 mm[Hg], 3.03 mm[Hg] Velocity Time Integral: 25.91 cm, 21.00 cm Tricuspid Valve Peak Velocity (Regurgitant Flow): 2.97 m/s, 2.94 m/s, 3.51 m/s Pulmonic Valve Peak Velocity: 0.95 m/s, 1.06 m/s Peak Gradient: 3.59 mm[Hg], 4.46 mm[Hg] Right Atrium Right Atrium Systolic Pressure: 53.33 ml, 53.33 ml Dictated by: Bong Gaspar M.D. on 11/27/2022 at 14:35 Approved by: Bong Gaspar M.D. on 11/27/2022 at 14:39 Normal [facility] CBC AUTO DIFFon 11-26-2022 BASO # 0.0 103/ul Normal 0.0-0.1 [facility] Comment on above: Performed By: #### I NSULIN #### [facility] [address] [place] [address] Dr. Ekta Funk Basophils/100 WBC (Bld) 0.6 % Normal 0.2-2.0 [facility] Comment on above: Performed By: #### I NSULIN #### [facility] [address] [place] [address] Dr. Ekta Funk EO # 0.3 103/ul Normal 0.0-0.7 [facility] Comment on above: Performed By: #### I NSULIN #### [facility] [address] [place] [address] Dr. Ekta Funk Eosinophils/100 WBC (Bld) 4.8 % Normal 0.9-7.0 [facility] Comment on above: Performed By: #### I NSULIN #### [facility] [address] [address] [address] Ekta Funk Erythrocyte distribution width (RBC) [Ratio] 13.3 % Normal 11.0-15.0 [facility] Comment on above: Performed By: #### I NSULIN #### [facility] [address] [place] [address] Dr. Ekta Funk Hematocrit (Bld) [Volume fraction] 29.1 % Critically low 36.0-48.0 [facility] Comment on above: Performed By: #### I NSULIN #### [facility] [address] [place] [address] Dr. Ekta Funk Hemoglobin (Bld) [Mass/Vol] 9.5 g/dL Critically low 12.0-16.0 [facility] Comment on above: Performed By: #### I NSULIN #### [facility] [address] [address] [address] Ekta Funk IG # 0.07 10e3/ul Critically high 0.00-0.03 [facility] Comment on above: Performed By: #### I NSULIN #### [facility] [address] [address] [address] Ekta Funk IG % 1.0 % Critically high 0.0-0.5 [facility] Comment on above: Performed By: #### I NSULIN #### [facility] [address] [place] [address] Dr. Ekta Funk LYMPH # 1.2 103/ul Normal 1.2-3.8 [facility] Comment on above: Performed By: #### I NSULIN #### [facility] [address] [address] [address] Ekta Funk Lymphocytes/100 WBC (Bld) 17.2 % Critically low 20.5-60.0 [facility] Comment on above: Performed By: #### I NSULIN #### [facility] [address] [place] [address] Dr. Ekta Funk MANUAL DIFF REQ NO Normal [facility] Comment on above: Performed By: #### I NSULIN #### [facility] [address] [address] [address] Ekta Funk MCH (RBC) [Entitic mass] 31.7 pg Normal 26.7-34.0 [facility] Comment on above: Performed By: #### I NSULIN #### [facility] [address] [address] [address] Ekta Funk MCHC (RBC) [Mass/Vol] 32.6 g/dL Normal 29.9-35.2 [facility] Comment on above: Performed By: #### I NSULIN #### [facility] [address] [address] [address] Ekta Funk MCV (RBC) [Entitic vol] 97.0 fL Normal 81.0-99.0 [facility] Comment on above: Performed By: #### I NSULIN #### [facility] [address] [place] [address] Dr. Ekta Funk MONO # 0.8 103/ul Normal 0.3-0.8 [facility] Comment on above: Performed By: #### I NSULIN #### [facility] [address] [address] [address] Ekta Funk Monocytes/100 WBC (Bld) 11.1 % Normal 1.7-12.0 [facility] Comment on above: Performed By: #### I NSULIN #### [facility] [address] [place] [address] Dr. Ekta Funk NEUT # 4.5 103/ul Normal 1.4-6.5 [facility] Comment on above: Performed By: #### I NSULIN #### [facility] [address] [place] [address] Dr. Ekta Funk Neutrophils/100 WBC (Bld) 65.3 % Normal 43.0-75.0 [facility] Comment on above: Performed By: #### I NSULIN #### [facility] [address] [place] [address] Dr. Ekta Funk Platelet mean volume (Bld) [Entitic vol] 9.4 fL Critically low 9.5-13.5 [facility] Comment on above: Performed By: #### I NSULIN #### [facility] [address] [place] [address] Dr. Ekta Funk PLT 263 103/ul Normal 150-450 [facility] Comment on above: Performed By: #### I NSULIN #### [facility] [address] [place] [address] Dr. Ekta Funk RBC 3.00 106/ul Critically low 4.20-5.40 [facility] Comment on above: Performed By: #### I NSULIN #### [facility] [address] [place] [address] Dr. Ekta Funk WBC 6.9 103/ul Normal 4.0-11.0 [facility] Comment on above: Performed By: #### I NSULIN #### [facility] [address] [place] [address] Dr. Ekta Funk PROF 14(COMP METB)on 023 Albumin [Mass/Vol] 2.2 g/dL Critically low 3.4-5.0 Th e [facility] Comment on above: Performed By: #### C MP #### [facility] [address] [place] [address] Dr. Ekta Funk Albumin/Globulin [Mass ratio] 0.6 {ratio} Normal [facility] Comment on above: Performed By: #### C MP #### [facility] [address] [place] [address] Dr. Ekta Funk ALP [Catalytic activity/Vol] 82 U/L Normal 46-116 [facility] Comment on above: Performed By: #### C MP #### [facility] [address] [place] [address] Dr. Ekta Funk ALT [Catalytic activity/Vol] 13 U/L Critically low 14-59 [facility] Comment on above: Performed By: #### C MP #### [facility] [address] [place] [address] Dr. Ekta Funk Anion gap [Moles/Vol] 14.0 mmol/L Normal [facility] Comment on above: Performed By: #### C MP #### [facility] [address] [place] [address] Dr. Ekta Funk AST [Catalytic activity/Vol] 18 U/L Normal 15-37 [facility] Comment on above: Performed By: #### C MP #### [facility] [address] [place] [address] Dr. Ekta Funk Bilirubin [Mass/Vol] 0.4 mg/dL Normal 0.2-1.0 [facility] Comment on above: Performed By: #### C MP #### [facility] [address] [place] [address] Dr. Ekta Funk Calcium [Mass/Vol] 8.6 mg/dL Normal 8.5-10.1 [facility] Comment on above: Performed By: #### C MP #### [facility] [address] [address] [address] Ekta Funk Chloride [Moles/Vol] 108 mmol/L Critically high 98-107 [facility] Comment on above: Performed By: #### C MP #### [facility] [address] [address] [address] Ekta Funk CO2 [Moles/Vol] 19.6 mmol/L Critically low 21.0-32.0 [facility] Comment on above: Performed By: #### C MP #### [facility] [address] [place] [address] Dr. Ekta Funk Creatinine [Mass/Vol] 1.70 mg/dL Critically high 0.55-1.02 [facility] Comment on above: Performed By: #### C MP #### [facility] [address] [place] [address] Dr. Ekta Funk EGFR-AF SURINAMESE 36 mL/min/1.73m2 Critically low >=60 [facility] Comment on above: Performed By: #### C MP #### [facility] [address] [place] [address] Dr. Ekta Funk EGFR-NON AF SURINAMESE 29 mL/min/1.73m2 Critically low >=60 [facility] Comment on above: Performed By: #### C MP #### [facility] [address] [address] [address] Ekta Funk Globulin (S) [Mass/Vol] 3.6 g/dL Normal [facility] Comment on above: Performed By: #### C MP #### [facility] [address] [address] [address] Ekta Funk Glucose [Mass/Vol] 103 mg/dL Normal 74-106 [facility] Comment on above: Performed By: #### C MP #### [facility] [address] [address] [address] Ekta Funk Potassium [Moles/Vol] 4.6 mmol/L Normal 3.5-5.1 [facility] Comment on above: Performed By: #### C MP #### [facility] [address] [place] [address] Dr. Ekta Funk Protein [Mass/Vol] 5.8 g/dL Critically low 6.4-8.2 [facility] e [facility] Comment on above: Performed By: #### C MP #### [facility] [address] [place] [address] Dr. Ekta Funk Sodium [Moles/Vol] 137 mmol/L Normal 136-145 [facility] Comment on above: Performed By: #### C MP #### [facility] [address] [place] [address] Dr. Ekta Funk Urea nitrogen [Mass/Vol] 26.0 mg/dL Critically high 7.0-18.0 [facility] Comment on above: Performed By: #### C MP #### [facility] [address] [place] [address] Dr. Ekta Funk Urea nitrogen/Creatinine [Mass ratio] 15.3 mg/mg Normal [facility] Comment on above: Performed By: #### C MP #### [facility] [address] [place] [address] Dr. Ekta Funk CBC AUTO DIFFon 11-25-2022 BASO # 0.1 103/ul Normal 0.0-0.1 [facility] Comment on above: Performed By: #### C BC #### [facility] [address] [place] [address] Dr. Ekta Funk Basophils/100 WBC (Bld) 0.7 % Normal 0.2-2.0 [facility] Comment on above: Performed By: #### C BC #### [facility] [address] [place] [address] Dr. Ekta Funk EO # 0.3 103/ul Normal 0.0-0.7 [facility] Comment on above: Performed By: #### C BC #### [facility] [address] [place] [address] Dr. Ekta Funk Eosinophils/100 WBC (Bld) 3.4 % Normal 0.9-7.0 [facility] Comment on above: Performed By: #### C BC #### [facility] [address] [place] [address] Dr. Ekta Funk Erythrocyte distribution width (RBC) [Ratio] 13.6 % Normal 11.0-15.0 [facility] Comment on above: Performed By: #### C BC #### [facility] [address] [place] [address] Dr. Ekta Funk Hematocrit (Bld) [Volume fraction] 32.1 % Critically low 36.0-48.0 [facility] Comment on above: Performed By: #### C BC #### [facility] [address] [place] [address] Dr. Ekta Funk Hemoglobin (Bld) [Mass/Vol] 10.3 g/dL Critically low 12.0-16.0 [facility] Comment on above: Performed By: #### C BC #### [facility] [address] [place] [address] Dr. Ekta Funk IG # 0.08 10e3/ul Critically high 0.00-0.03 [facility] Comment on above: Performed By: #### C BC #### [facility] [address] [place] [address] Dr. Ekta Funk IG % 0.9 % Critically high 0.0-0.5 [facility] Comment on above: Performed By: #### C BC #### [facility] [address] [place] [address] Dr. Ekta Funk LYMPH # 0.9 103/ul Critically low 1.2-3.8 [facility] Comment on above: Performed By: #### C BC #### [facility] [address] [place] [address] Dr. Ekta Funk Lymphocytes/100 WBC (Bld) 10.7 % Critically low 20.5-60.0 [facility] Comment on above: Performed By: #### C BC #### [facility] [address] [place] [address] Dr. Ekta Funk MANUAL DIFF REQ NO Normal [facility] Comment on above: Performed By: #### C BC #### [facility] [address] [place] [address] Dr. Ekta Funk MCH (RBC) [Entitic mass] 32.2 pg Normal 26.7-34.0 [facility] Comment on above: Performed By: #### C BC #### [facility] [address] [place] [address] Dr. Ekta Funk MCHC (RBC) [Mass/Vol] 32.1 g/dL Normal 29.9-35.2 [facility] Comment on above: Performed By: #### C BC #### [facility] [address] [place] [address] Dr. Ekta Funk MCV (RBC) [Entitic vol] 100.3 fL Critically high 81.0-99.0 [facility] Comment on above: Performed By: #### C BC #### [facility] [address] [place] [address] Dr. Ekta Funk MONO # 0.9 103/ul Critically high 0.3-0.8 [facility] Comment on above: Performed By: #### C BC #### [facility] [address] [place] [address] Dr. Ekta Funk Monocytes/100 WBC (Bld) 9.9 % Normal 1.7-12.0 [facility] Comment on above: Performed By: #### C BC #### [facility] [address] [place] [address] Dr. Ekta Funk NEUT # 6.4 103/ul Normal 1.4-6.5 [facility] Comment on above: Performed By: #### C BC #### [facility] [address] [place] [address] Dr. Ekta Funk Neutrophils/100 WBC (Bld) 74.4 % Normal 43.0-75.0 [facility] Comment on above: Performed By: #### C BC #### [facility] [address] [place] [address] Dr. Ekta Funk Platelet mean volume (Bld) [Entitic vol] 9.5 fL Normal 9.5-13.5 [facility] Comment on above: Performed By: #### C BC #### [facility] [address] [place] [address] Dr. Ekta Funk PLT 267 103/ul Normal 150-450 [facility] Comment on above: Performed By: #### C BC #### [facility] [address] [address] [address] Ekta Funk RBC 3.20 106/ul Critically low 4.20-5.40 [facility] Comment on above: Performed By: #### C BC #### [facility] [address] [address] [address] Ekta Funk WBC 8.6 103/ul Normal 4.0-11.0 [facility] Comment on above: Performed By: #### C BC #### [facility] [address] [place] [address] Dr. Ekta Funk BASO # 0.1 103/ul Normal 0.0-0.1 [facility] Comment on above: Performed By: #### C MP #### [facility] [address] [place] [address] Dr. Ekta Funk Basophils/100 WBC (Bld) 0.7 % Normal 0.2-2.0 [facility] Comment on above: Performed By: #### C MP #### [facility] [address] [place] [address] Dr. Ekta Funk EO # 0.3 103/ul Normal 0.0-0.7 [facility] Comment on above: Performed By: #### C MP #### [facility] [address] [place] [address] Dr. Ekta Funk Eosinophils/100 WBC (Bld) 3.9 % Normal 0.9-7.0 [facility] Comment on above: Performed By: #### C MP #### [facility] [address] [place] [address] Dr. Ekta Funk Erythrocyte distribution width (RBC) [Ratio] 13.2 % Normal 11.0-15.0 [facility] Comment on above: Performed By: #### C MP #### [facility] [address] [address] [address] Ekta Funk Hematocrit (Bld) [Volume fraction] 28.0 % Critically low 36.0-48.0 [facility] Comment on above: Performed By: #### C MP #### [facility] [address] [address] [address] Ekta Funk Hemoglobin (Bld) [Mass/Vol] 9.3 g/dL Critically low 12.0-16.0 [facility] Comment on above: Performed By: #### C MP #### [facility] [address] [address] [address] Ekta Funk IG # 0.08 10e3/ul Critically high 0.00-0.03 [facility] Comment on above: Performed By: #### C MP #### [facility] [address] [address] [address] Ekta Funk IG % 1.1 % Critically high 0.0-0.5 [facility] Comment on above: Performed By: #### C MP #### [facility] [address] [address] [address] Ekta Funk LYMPH # 0.9 103/ul Critically low 1.2-3.8 [facility] Comment on above: Performed By: #### C MP #### [facility] [address] [address] [address] Ekta Funk Lymphocytes/100 WBC (Bld) 12.1 % Critically low 20.5-60.0 [facility] Comment on above: Performed By: #### C MP #### [facility] [address] [address] [address] Ekta Funk MANUAL DIFF REQ NO Normal [facility] Comment on above: Performed By: #### C MP #### [facility] [address] [place] [address] Dr. Ekta Funk MCH (RBC) [Entitic mass] 32.0 pg Normal 26.7-34.0 [facility] Comment on above: Performed By: #### C MP #### [facility] [address] [address] [address] Ekta Funk MCHC (RBC) [Mass/Vol] 33.2 g/dL Normal 29.9-35.2 [facility] Comment on above: Performed By: #### C MP #### [facility] [address] [address] [address] Ekta Funk MCV (RBC) [Entitic vol] 96.2 fL Normal 81.0-99.0 [facility] Comment on above: Performed By: #### C MP #### [facility] [address] [address] [address] Ekta Funk MONO # 0.7 103/ul Normal 0.3-0.8 [facility] Comment on above: Performed By: #### C MP #### [facility] [address] [place] [address] Dr. Ekta Funk Monocytes/100 WBC (Bld) 9.8 % Normal 1.7-12.0 [facility] Comment on above: Performed By: #### C MP #### [facility] [address] [address] [address] Ekta Funk NEUT # 5.2 103/ul Normal 1.4-6.5 [facility] Comment on above: Performed By: #### C MP #### [facility] [address] [place] [address] Dr. Ekta Funk Neutrophils/100 WBC (Bld) 72.4 % Normal 43.0-75.0 [facility] Comment on above: Performed By: #### C MP #### [facility] [address] [place] [address] Dr. Ekta Funk Platelet mean volume (Bld) [Entitic vol] 9.4 fL Critically low 9.5-13.5 [facility] Comment on above: Performed By: #### C MP #### [facility] [address] [place] [address] Dr. Ekta Funk PLT 250 103/ul Normal 150-450 [facility] Comment on above: Performed By: #### C MP #### [facility] [address] [place] [address] Dr. Ekta Funk RBC 2.91 106/ul Critically low 4.20-5.40 [facility] Comment on above: Performed By: #### C MP #### [facility] [address] [address] [address] Ekta Funk WBC 7.2 103/ul Normal 4.0-11.0 [facility] Comment on above: Performed By: #### C MP #### [facility] [address] [place] [address] Dr. Ekta Funk PROF 14(COMP METB)on 023 Albumin [Mass/Vol] 2.1 g/dL Critically low 3.4-5.0 [facility] Comment on above: Performed By: #### C MP #### [facility] [address] [place] [address] Dr. Ekta Funk Albumin/Globulin [Mass ratio] 0.6 {ratio} Normal [facility] Comment on above: Performed By: #### C MP #### [facility] [address] [place] [address] Dr. Ekta Funk ALP [Catalytic activity/Vol] 68 U/L Normal 46-116 [facility] Comment on above: Performed By: #### C MP #### [facility] [address] [place] [address] Dr. Ekta Funk ALT [Catalytic activity/Vol] 14 U/L Normal 14-59 [facility] Comment on above: Performed By: #### C MP #### [facility] [address] [place] [address] Dr. Ekta Funk Anion gap [Moles/Vol] 12.9 mmol/L Normal [facility] Comment on above: Performed By: #### C MP #### [facility] [address] [place] [address] Dr. Ekta Funk AST [Catalytic activity/Vol] 14 U/L Critically low 15-37 [facility] Comment on above: Performed By: #### C MP #### [facility] [address] [place] [address] Dr. Ekta Funk Bilirubin [Mass/Vol] 0.3 mg/dL Normal 0.2-1.0 [facility] Comment on above: Performed By: #### C MP #### [facility] [address] [address] [address] Ekta Funk Calcium [Mass/Vol] 8.3 mg/dL Critically low 8.5-10.1 [facility] e [facility] Comment on above: Performed By: #### C MP #### [facility] [address] [address] [address] Ekta Funk Chloride [Moles/Vol] 109 mmol/L Critically high 98-107 [facility] Comment on above: Performed By: #### C MP #### [facility] [address] [place] [address] Dr. Ekta Funk CO2 [Moles/Vol] 19.3 mmol/L Critically low 21.0-32.0 [facility] Comment on above: Performed By: #### C MP #### [facility] [address] [place] [address] Dr. Ekta Funk Creatinine [Mass/Vol] 1.54 mg/dL Critically high 0.55-1.02 [facility] Comment on above: Performed By: #### C MP #### [facility] [address] [place] [address] Dr. Ekta Funk EGFR-AF SURINAMESE 40 mL/min/1.73m2 Critically low >=60 [facility] Comment on above: Performed By: #### C MP #### [facility] [address] [place] [address] Dr. Ekta Funk EGFR-NON AF SURINAMESE 33 mL/min/1.73m2 Critically low >=60 [facility] Comment on above: Performed By: #### C MP #### [facility] [address] [place] [address] Dr. Ekta Funk Globulin (S) [Mass/Vol] 3.7 g/dL Normal [facility] Comment on above: Performed By: #### C MP #### [facility] [address] [place] [address] Dr. Ekta Funk Glucose [Mass/Vol] 117 mg/dL Critically high 74-106 [facility] Comment on above: Performed By: #### C MP #### [facility] [address] [address] [address] Ekta Funk Potassium [Moles/Vol] 4.2 mmol/L Normal 3.5-5.1 [facility] Comment on above: Performed By: #### C MP #### [facility] [address] [place] [address] Dr. Ekta Funk Protein [Mass/Vol] 5.8 g/dL Critically low 6.4-8.2 Th e [facility] Comment on above: Performed By: #### C MP #### [facility] [address] [place] [address] Dr. Ekta Funk Sodium [Moles/Vol] 137 mmol/L Normal 136-145 [facility] Comment on above: Performed By: #### C MP #### [facility] [address] [place] [address] Dr. Ekta Funk Urea nitrogen [Mass/Vol] 27.0 mg/dL Critically high 7.0-18.0 [facility] Comment on above: Performed By: #### C MP #### [facility] [address] [place] [address] Dr. Ekta Funk Urea nitrogen/Creatinine [Mass ratio] 17.5 mg/mg Normal [facility] Comment on above: Performed By: #### C MP #### [facility] [address] [place] [address] Dr. Ekta Funk AMMONIAon 11-24-2022 Ammonia (P) [Moles/Vol] 13 umol/L Normal 11-32 [facility] Comment on above: Performed By: #### C VDTB #### [facility] [address] [place] [address] Dr. Ekta Funk CBC AUTO DIFFon 11-24-2022 BASO # 0.0 103/ul Normal 0.0-0.1 [facility] Comment on above: Performed By: #### C MP #### [facility] [address] [address] [address] Ekta Funk Basophils/100 WBC (Bld) 0.4 % Normal 0.2-2.0 [facility] Comment on above: Performed By: #### C MP #### [facility] [address] [address] [address] Ekta Funk EO # 0.4 103/ul Normal 0.0-0.7 [facility] Comment on above: Performed By: #### C MP #### [facility] [address] [address] [address] Ekta Funk Eosinophils/100 WBC (Bld) 3.8 % Normal 0.9-7.0 [facility] Comment on above: Performed By: #### C MP #### [facility] [address] [address] [address] Ekta Funk Erythrocyte distribution width (RBC) [Ratio] 13.2 % Normal 11.0-15.0 [facility] Comment on above: Performed By: #### C MP #### [facility] [address] [address] [address] Ekta Funk Hematocrit (Bld) [Volume fraction] 34.0 % Critically low 36.0-48.0 [facility] Comment on above: Performed By: #### C MP #### [facility] [address] [address] [address] Ekta Funk Hemoglobin (Bld) [Mass/Vol] 11.5 g/dL Critically low 12.0-16.0 [facility] Comment on above: Performed By: #### C MP #### [facility] [address] [address] [address] Ekta Funk IG # 0.11 10e3/ul Critically high 0.00-0.03 [facility] Comment on above: Performed By: #### C MP #### [facility] [address] [address] [address] Ekta Funk IG % 1.2 % Critically high 0.0-0.5 [facility] Comment on above: Performed By: #### C MP #### [facility] [address] [address] [address] Ekta Funk LYMPH # 1.4 103/ul Normal 1.2-3.8 [facility] Comment on above: Performed By: #### C MP #### [facility] [address] [place] [address] Dr. Ekta Funk Lymphocytes/100 WBC (Bld) 14.9 % Critically low 20.5-60.0 [facility] Comment on above: Performed By: #### C MP #### [facility] [address] [place] [address] Dr. Ekta Funk MANUAL DIFF REQ NO Normal [facility] Comment on above: Performed By: #### C MP #### [facility] [address] [place] [address] Dr. Ekta Funk MCH (RBC) [Entitic mass] 32.5 pg Normal 26.7-34.0 [facility] Comment on above: Performed By: #### C MP #### [facility] [address] [place] [address] Dr. Ekta Funk MCHC (RBC) [Mass/Vol] 33.8 g/dL Normal 29.9-35.2 [facility] Comment on above: Performed By: #### C MP #### [facility] [address] [place] [address] Dr. Ekta Funk MCV (RBC) [Entitic vol] 96.0 fL Normal 81.0-99.0 [facility] Comment on above: Performed By: #### C MP #### [facility] [address] [place] [address] Dr. Ekta Funk MONO # 0.9 103/ul Critically high 0.3-0.8 [facility] Comment on above: Performed By: #### C MP #### [facility] [address] [place] [address] Dr. Ekta Funk Monocytes/100 WBC (Bld) 9.7 % Normal 1.7-12.0 [facility] Comment on above: Performed By: #### C MP #### [facility] [address] [address] [address] Ekta Funk NEUT # 6.4 103/ul Normal 1.4-6.5 [facility] Comment on above: Performed By: #### C MP #### [facility] [address] [address] [address] Ekta Funk Neutrophils/100 WBC (Bld) 70.0 % Normal 43.0-75.0 [facility] Comment on above: Performed By: #### C MP #### [facility] [address] [address] [address] Ekta Funk Platelet mean volume (Bld) [Entitic vol] 9.3 fL Critically low 9.5-13.5 [facility] Comment on above: Performed By: #### C MP #### [facility] [address] [place] [address] Dr. Ekta Funk PLT 308 103/ul Normal 150-450 [facility] Comment on above: Performed By: #### C MP #### [facility] [address] [address] [address] Ekta Funk RBC 3.54 106/ul Critically low 4.20-5.40 [facility] Comment on above: Performed By: #### C MP #### [facility] [address] [address] [address] Ekta Funk WBC 9.1 103/ul Normal 4.0-11.0 [facility] Comment on above: Performed By: #### C MP #### [facility] [address] [place] [address] Dr. Ekta Funk CPKon 11-24-2022 CK [Catalytic activity/Vol] 21 U/L Critically low 26-192 [facility] Comment on above: Performed By: #### B 12FOL, VITAD, IRON #### [facility] [address] [place], [place] [id number] Dr. Ekta Funk CT STROKE HEAD WOon 11-25-19 CT STROKE HEAD WO EXAMINATION: CT STROKE HEAD WO HISTORY: Headache, confusion, shortness of breath COMPARISON: MR brain 05/25/2022. TECHNIQUE: CT examination of the head without IV contrast. Dose reduction techniques were achieved by using automated exposure control and/or adjustment of mA and/or kV according to patient size and/or use of iterative reconstruction technique. FINDINGS: Calvarium/skull base: No evidence of acute fracture or destructive lesion. Mastoids and middle ears demonstrate no substantial mucosal disease. Paranasal sinuses: No air fluid levels. Brain: No acute intracranial hemorrhage. No acute large vascular territory infarct. Remote encephalomalacia involving the left frontal lobe laterally. Small area of remote infarct involving the left occipital lobe possibly progressed from 05/25/2022. Moderate patchy white matter hypoattenuation involving supratentorial white matter grossly stable from prior MR brain when allowing for differences in technique. Parenchymal volume is grossly appropriate. No mass lesion or mass effect. No hydrocephalus. Intracranial atherosclerosis. IMPRESSION: 1. No acute intracranial hemorrhage. 2. Slight interval progression in size of infarct involving the left occipital lobe compared to MR brain 05/25/2022 concerning for possible acute/subacute on chronic infarct. 3. Small remote infarct involving the left frontal lobe. 4. Prominent supratentorial white matter change detailed above stable from prior which in this age group most commonly relates to sequela small vessel disease. Notification of Results Provider/Agent notified: Dr. Elian Epps Time/Date notified: 11/24/2022 9:06 AM MDT Notifying Staff: Dr. Parada Electronically authenticated by: VANESSA PARADA Date: 2022-11-24 11:[address] [facility] CTA HEAD WO W CONon 11-25-19 CTA HEAD WO W CON EXAMINATION: CTA HEA D WO W CON, CTA NECK WO W CON HISTORY: HEADACHE COMPARISON: No relevant comparison available. TECHNIQUE: CT imaging of the head following IV administration of non-ionic contrast. Multi-planar/3-D imaging were created to optimize visualization of vascular anatomy. Dose reduction techniques were achieved by using automated exposure control and/or adjustment of mA and/or kV according to patient size and/or use of iterative reconstruction technique. FINDINGS: BRAIN: VASCULATURE: Mild atherosclerotic narrowing of the parasellar carotid arteries. No significant stenosis. No visible aneurysm or vascular malformation. NECK: RIGHT INTERNAL CAROTID: Mild atherosclerotic narrowing of carotid bulb. No hemodynamically significant stenosis or dissection. EXTERNAL CAROTID: No hemodynamically significant stenosis or dissection. COMMON CAROTID: No hemodynamically significant stenosis or dissection. VERTEBRAL: No hemodynamically significant stenosis or dissection. LEFT INTERNAL CAROTID: Mild-moderate atherosclerotic narrowing of carotid bulb. No hemodynamically significant stenosis or dissection. EXTERNAL CAROTID: No hemodynamically significant stenosis or dissection. COMMON CAROTID: No hemodynamically significant stenosis or dissection. VERTEBRAL: No hemodynamically significant stenosis or dissection. OTHER: L4-L5 marked degenerative disc disease with grade 1, bordering on grade 2 anterior listhesis of C4 on 5. Large posterior disc osteophyte complex likely causing moderate central canal narrowing. Marked degenerative facet arthropathy. L5-S1 grade 1 retrolisthesis with marked degenerative disc disease and posterior disc-osteophyte complex and marked degenerative facet arthropathy likely causing marked central canal narrowing. IMPRESSION: 1. 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 No suspicious findings. 2. Mild/moderate atherosclerotic narrowing of the carotid bulbs, left greater than right. No acute or significant findings. 3. Marked degenerative disc disease of cervical spine with suspected moderate to marked central canal narrowing. Consider nonemergent follow-up MRI for further evaluation. IMPRESSION: Electronically authenticated by: VISHNU MARIE Date: 2022-11-24 12:41 Normal [facility] CULTURE URINEon 11-24-2022 CULTURE URINE Culture Observations : NO GROWTH. Normal [facility] Comment on above: Performed By: #### I NSULIN #### [facility] [address] [place] [address] Dr. Ekta Funk Covid-19 PCR (CVDTB)on 11-08 SARS-CoV-2 (COVID-19) RNA GANESH+probe Ql (Unsp spec) Not detected Normal NOT DETECTED [facility] Comment on above: Result Comment: When diagnostic testing is negative, the possibility of a false negative should be considered in the context of a patient's recent exposures and the presence of clinical signs and symptoms consistent with SARS-CoV-2. This test is not yet approved or cleared by the [place] FDA. When there are no FDA-approved or cleared tests available, and other criteria are met, FDA can make tests available under an emergency access mechanism called an Emergency Use Authorization (EUA). The EUA for this test is supported by the Communication Specialist of Health and Human Service's declaration that circumstances exist to justify the emergency use of in vitro diagnostics for the detection and/or diagnosis of the virus that causes COVID-19. This EUA will remain in effect for the duration of the COVID-19 declaration justifying emergency of IVDs, unless it is terminated or revoked by the FDA (after which the test may no longer be used). Performed By: #### C VDTBH #### [facility] [address] [place] [address] Dr. Ekta Funk ER URINE PROFILEon 3 Bilirubin Ql (U) Negative Normal NEGATIVE [facility] Comment on above: Performed By: #### C BC #### [facility] [address] [place] [address] Dr. Ekta Funk Clarity (U) CLEAR Normal CLEAR [facility] Comment on above: Performed By: #### C BC #### [facility] [address] [place] [address] Dr. Ekta Funk Color (U) LT. YELLOW Normal YELLOW [facility] Comment on above: Performed By: #### C BC #### [facility] [address] [place] [address] Dr. Ekta Funk ERUAHD A micrscopic examination will be performed if indicated. Normal [facility] Comment on above: Performed By: #### C BC #### [facility] [address] [place] [address] Dr. Ekta Funk Glucose Ql (U) Negative Normal NEGATIVE [facility] Comment on above: Performed By: #### C BC #### [facility] [address] [place] [address] Dr. Ekta Funk Hemoglobin Ql (U) Negative Normal NEGATIVE [facility] Comment on above: Performed By: #### C BC #### [facility] [address] [place] [address] Dr. Ekta Funk Ketones Ql (U) Negative Normal NEGATIVE [facility] Comment on above: Performed By: #### C BC #### [facility] [address] [place] [address] Dr. Ekta Funk LEUKOCYTES Negative Normal NEGATIVE [facility] Comment on above: Performed By: #### C BC #### [facility] [address] [place] [address] Dr. Ekta Funk Nitrite Ql (U) Negative Normal NEGATIVE [facility] Comment on above: Performed By: #### C BC #### [facility] [address] [place] [address] Dr. Ekta Funk pH (U) 5.5 [pH] Normal 5-9 [facility] Comment on above: Performed By: #### C BC #### [facility] [address] [place] [address] Dr. Ekta Funk SPEC GRAVITY 1.020 Normal 1.005-<=1.025 [facility] Comment on above: Performed By: #### C BC #### [facility] [address] [place] [address] Dr. Ekta Funk UA PROTEIN Negative Normal NEGATIVE/ TRACE [facility] Comment on above: Performed By: #### C BC #### [facility] [address] [place] [address] Dr. Ekta Funk UR MICRO IND NOT INDICATED Normal [facility] Comment on above: Performed By: #### C BC #### [facility] [address] [place] [address] Dr. Ekta Funk Urobilinogen Qn (U) 0.2 {Ivan'U}/dL Normal 0.2 - 1. 0 [facility] Comment on above: Performed By: #### C BC #### [facility] [address] [place] [address] Dr. Ekta Funk GLYCOHEMOGLOBIN A1Con 2022 ADA RECOMMENDATION SEE BELOW Normal [facility] Comment on above: Result Comment: ADA RECOMMENDED LIMIT 4.0 - 6.0 ADA THERAPEUTIC TARGET < 7.0 ACTION SUGGESTED > 7.0 Performed By: #### B 12FOL VITAD, IRON #### [facility] [address] [place] [address] Dr. Ekta Funk Glucose [Mass/Vol] 143 mg/dL Normal [facility] Comment on above: Performed By: #### B 12FOL, VITAD, IRON #### [facility] [address] [address] [address] Ekta Funk HbA1c (Bld) [Mass fraction] 6.6 % Critically high 4.5-6.2 [facility] Comment on above: Performed By: #### B 12FOL, VITAD, IRON #### [facility] [address] [address] [address] Ekta Funk LACTATE/LACTIC ACIDon 2022 Lactate [Moles/Vol] 1.6 mmol/L Normal 0.4-2.0 [facility] Comment on above: Performed By: #### C MP #### [facility] [address] [address] [address] Ekta Funk Lactate [Moles/Vol] 2.1 mmol/L Critically high 0.4-2.0 [facility] Comment on above: Performed By: #### B 12FOL, VITAD, IRON #### [facility] [address] [place] [address] Dr. Ekta Funk LIPASEon 11-24-2022 Lipase [Catalytic activity/Vol] 165.0 U/L Normal 73.0-393.0 [facility] Comment on above: Performed By: #### B 12FOL, VITAD, IRON #### [facility] [address] [place] [address] Dr. Ekta Funk LIPID PROFILEon 11-24-2022 CHOL-HDL RATIO NORM SEE BELOW Normal [facility] Comment on above: Result Comment: 3.3 - 4.4 LOW RISK 4.4 - 7.1 AVERAGE RISK 7.1 - 11.0 MODERATE RISK >11.0 HIGH RISK Performed By: #### B 12FOL, VITAD, IRON #### [facility] [address] [place] [address] Dr. Ekta Funk Cholesterol [Mass/Vol] 248 mg/dL Critically high <=200 [facility] Comment on above: Performed By: #### B 12FOL, VITAD, IRON #### [facility] [address] [place] [address] Dr. Etka Funk Cholesterol in HDL [Mass/Vol] 58 mg/dL Normal 40-60 [facility] Comment on above: Performed By: #### B 12FOL, VITAD, IRON #### [facility] [address] [address] [address] Ekta Funk Cholesterol in LDL [Mass/Vol] 165.6 mg/dL Normal [facility] Comment on above: Performed By: #### B 12FOL, VITAD, IRON #### [facility] [address] [address] [address] Ekta Funk Cholesterol.total/Ch olesterol in HDL [Mass ratio] 4.3 {ratio} Normal [facility] Comment on above: Performed By: #### B 12FOL, VITAD, IRON #### [facility] [address] [address] [address] Ekta Funk HDL NORMAL > or = 60 mg/dl - LO W CARDIOVASCULAR RISK <40 mg/dl - HIGH CARDIOVASCULAR RISK Normal [facility] Comment on above: Performed By: #### B 12FOL, VITAD, IRON #### [facility] [address] [address] [address] Ekta Funk LDL CALC NORMAL SEE BELOW Normal [facility] Comment on above: Result Comment: <100 mg/dl OPTIMAL 100 - 129 mg/dl NEAR OR ABOVE OPTIMAL 130 - 159 mg/dl BORDERLINE HIGH 160 - 189 mg/dl HIGH >190 mg/dl VERY HIGH Performed By: #### B 12FOL, VITAD, IRON #### [facility] [address] [address] [address] Ekta Funk Triglyceride [Mass/Vol] 122 mg/dL Normal <=150 [facility] Comment on above: Performed By: #### B 12FOL, VITAD, IRON #### [facility] [address] [address] [address] Ekta Funk VLDL CALC 24.4 mg/dL Normal [facility] Comment on above: Performed By: #### B 12FOL, VITAD, IRON #### [facility] [address] [address] [address] Ekta Funk MRI BRAIN WO CONon MRI BRAIN WO CON MRI BRAIN WO CON 11/24/2022 6:51 PM EDT Provided History: Confusion ICD-10: Confusion Comparison: CT head same day Technique: Sagittal T1-weighted and axial T2-weighted, turboFLAIR and diffusion-weighted with ADC map images of the brain were obtained without intravenous contrast. Findings: These images reveal no intracranial mass lesion, mass effect, midline shift or abnormal extraaxial fluid collection. The ventricles and sulci are normal for age. No abnormality of reduced diffusion. Normal intravascular flow voids. Moderate to Marked scattered T2/FLAIR white matter high signal foci suggesting sequelae of small vessel ischemic change/leukoaraiosis. Encephalomalacia from old small infarct in the left occipital lobe. There is a thin linear acute infarct, within the left parietal lobe involving a small vascular territory extending from deep to central, involving the cortex. An additional, scattered tiny punctate infarcts are noted within the more superior left parietal lobe. Moderate to marked cerebral atrophy. Impression: Acute infarct involving a small vascular territory of the left parietal lobe, extending from the deep white matter, into the cortex. There are additional punctate scattered acute infarcts noted slightly more superior in the left parietal region. Report was submitted to the clinical operation support team for expedited reviewed by the provider. Electronically authenticated by: RAVEN ELAINE Date: 2022-11-24 19:35 Normal The [facility] PROF 14(COMP METB)on 023 Albumin [Mass/Vol] 2.7 g/dL Critically low 3.4-5.0 Th e [facility] Comment on above: Performed By: #### B 12FOL, VITAD, IRON #### [facility] [address] [address] [address] Ekta Funk Albumin/Globulin [Mass ratio] 0.6 {ratio} Normal [facility] Comment on above: Performed By: #### B 12FOL, VITAD, IRON #### [facility] [address] [address] [address] Ekta Funk ALP [Catalytic activity/Vol] 85 U/L Normal 46-116 [facility] Comment on above: Performed By: #### B 12FOL, VITAD, IRON #### [facility] [address] [address] [address] Ekta Funk ALT [Catalytic activity/Vol] 18 U/L Normal 14-59 [facility] Comment on above: Performed By: #### B 12FOL, VITAD, IRON #### [facility] [address] [address] [address] Ekta Funk Anion gap [Moles/Vol] 18.9 mmol/L Normal [facility] Comment on above: Performed By: #### B 12FOL, VITAD, IRON #### [facility] [address] [place] [address] Dr. Ekta Funk AST [Catalytic activity/Vol] 16 U/L Normal 15-37 [facility] Comment on above: Performed By: #### B 12FOL, VITAD, IRON #### [facility] [address] [place] [address] Dr. Ekta Funk Bilirubin [Mass/Vol] 0.4 mg/dL Normal 0.2-1.0 [facility] Comment on above: Performed By: #### B 12FOL, VITAD, IRON #### [facility] [address] [place] [address] Dr. Ekta uFnk Calcium [Mass/Vol] 9.5 mg/dL Normal 8.5-10.1 [facility] Comment on above: Performed By: #### B 12FOL, VITAD, IRON #### [facility] [address] [place] [address] Dr. Ekta Funk Chloride [Moles/Vol] 108 mmol/L Critically high 98-107 [facility] Comment on above: Performed By: #### B 12FOL, VITAD, IRON #### [facility] [address] [place] [address] Dr. Ekta Funk CO2 [Moles/Vol] 21.1 mmol/L Normal 21.0-32.0 [facility] Comment on above: Performed By: #### B 12FOL, VITAD, IRON #### [facility] [address] [place] [address] Dr. Ekta Funk Creatinine [Mass/Vol] 2.08 mg/dL Critically high 0.55-1.02 [facility] Comment on above: Performed By: #### B 12FOL, VITAD, IRON #### [facility] [address] [place] [address] Dr. Ekta Funk EGFR-AF SURINAMESE 28 mL/min/1.73m2 Critically low >=60 [facility] Comment on above: Performed By: #### B 12FOL, VITAD, IRON #### [facility] [address] [place] [address] Dr. Ekta Funk EGFR-NON AF SURINAMESE 23 mL/min/1.73m2 Critically low >=60 [facility] Comment on above: Performed By: #### B 12FOL, VITAD, IRON #### [facility] [address] [place] [address] Dr. Ekta Funk Globulin (S) [Mass/Vol] 4.6 g/dL Normal [facility] Comment on above: Performed By: #### B 12FOL, VITAD, IRON #### [facility] [address] [place] [address] Dr. Ekta Funk Glucose [Mass/Vol] 119 mg/dL Critically high 74-106 [facility] Comment on above: Performed By: #### B 12FOL, VITAD, IRON #### [facility] [address] [place] [address] Dr. Ekta Funk Potassium [Moles/Vol] 5.0 mmol/L Normal 3.5-5.1 [facility] Comment on above: Performed By: #### B 12FOL, VITAD, IRON #### [facility] [address] [place] [address] Dr. Ekta Funk Protein [Mass/Vol] 7.3 g/dL Normal 6.4-8.2 [facility] Comment on above: Performed By: #### B 12FOL, VITAD, IRON #### [facility] [address] [place] [address] Dr. Ekta Funk Sodium [Moles/Vol] 143 mmol/L Normal 136-145 [facility] Comment on above: Performed By: #### B 12FOL, VITAD, IRON #### [facility] [address] [address] [address] Ekta Funk Urea nitrogen [Mass/Vol] 37.0 mg/dL Critically high 7.0-18.0 [facility] Comment on above: Performed By: #### B 12FOL VITAD, IRON #### [facility] [address] [place], [place] [address] Dr. Ekta Funk Urea nitrogen/Creatinine [Mass ratio] 17.8 mg/mg Normal [facility] Comment on above: Performed By: #### B 12FOL VITAD, IRON #### [facility] [address] [place], [place] [address] Dr. Ekta Funk TROPONIN, HIGH SENSITIVITYon 11-24-2022 HSTROP 14.1 pg/mL Normal 4.0-51.3 [facility] Comment on above: Result Comment: CUT- OFF POINTS HAVE BEEN ESTABLISHED BASED ON THE FOURTH UNIVERSAL DEFINITIONS OF MYOCARDIAL INFARCTION. THE UPPER REFERENCE LIMIT (URL) OF TROPONIN, DEFINED THE 99TH PERCENTILE OF cTnI DISTRIBUTION IN A REFERENCE POPULATION, HAS BEEN CONFIRMED THE DECISION THRESHOLD FOR PR DIAGNOSIS. Performed By: #### B 12FOL VITAD, IRON #### [facility] [address] [address] [address] Ekta Funk TSHon 11-24-2022 TSH 1.184 uIU/mL Normal 0.358-3.740 [facility] Comment on above: Performed By: #### B ElviraFOLNENOAD, IRON #### [facility] [id number] Ekta Funk XR CHEST 1 Von 11-24-2022 XR CHEST 1 V EXAM: XR CHEST 1 V HISTORY: COUGH confusion and shortness of breath. COMPARISON: 11/13/2022. TECHNIQUE: Chest X-ray AP, 1 view. FINDINGS: Support devices: None. Lungs/pleura: Mild hazy opacities of the developed within the lung bases, greater on the left. No dense consolidation. No effusion or pneumothorax. Chronic appearing lung markings are otherwise unchanged. Heart and mediastinum: Stable contours compared to prior examination. Bones: No acute abnormality identified. IMPRESSION: Mild hazy bibasilar atelectasis or infiltrate, greater on the left. Electronically authenticated by: NATALIIA TATE Date: 2022-11-24 11:00 Normal [facility] BNPon 11-13-2022 Natriuretic peptide B (Bld) [Mass/Vol] 565.0 pg/mL Normal <=900.0 [facility] Comment on above: Performed By: #### I NSULIN #### [facility] [address] [place] [address] Dr. Ekta Funk CBC AUTO DIFFon 11-13-2022 BASO # 0.1 103/ul Normal 0.0-0.1 [facility] Comment on above: Performed By: #### C BC #### [facility] [address] [place] [address] Dr. Ekta Funk Basophils/100 WBC (Bld) 0.6 % Normal 0.2-2.0 [facility] Comment on above: Performed By: #### C BC #### [facility] [address] [place] [address] Dr. Ekta Funk EO # 0.4 103/ul Normal 0.0-0.7 [facility] Comment on above: Performed By: #### C BC #### [facility] [address] [place] [address] Dr. Ekta Funk Eosinophils/100 WBC (Bld) 3.7 % Normal 0.9-7.0 [facility] Comment on above: Performed By: #### C BC #### [facility] [address] [place] [address] Dr. Ekta Funk Erythrocyte distribution width (RBC) [Ratio] 13.2 % Normal 11.0-15.0 [facility] Comment on above: Performed By: #### C BC #### [facility] [address] [place] [address] Dr. Ekta Funk Hematocrit (Bld) [Volume fraction] 36.7 % Normal 36.0-48.0 [facility] Comment on above: Performed By: #### C BC #### [facility] [address] [place] [address] Dr. Ekta Funk Hemoglobin (Bld) [Mass/Vol] 12.4 g/dL Normal 12.0-16.0 [facility] Comment on above: Performed By: #### C BC #### [facility] [address] [place] [address] Dr. Ekta Funk IG # 0.10 10e3/ul Critically high 0.00-0.03 [facility] Comment on above: Performed By: #### C BC #### [facility] [address] [place] [address] Dr. Ekta Funk IG % 1.0 % Critically high 0.0-0.5 [facility] Comment on above: Performed By: #### C BC #### [facility] [address] [place] [address] Dr. Ekta Funk LYMPH # 1.5 103/ul Normal 1.2-3.8 [facility] Comment on above: Performed By: #### C BC #### [facility] [address] [place] [address] Dr. Ekta Funk Lymphocytes/100 WBC (Bld) 14.9 % Critically low 20.5-60.0 [facility] Comment on above: Performed By: #### C BC #### [facility] [address] [place] [address] Dr. Ekta Funk MANUAL DIFF REQ NO Normal [facility] Comment on above: Performed By: #### C BC #### [facility] [address] [place] [address] Dr. Ekta Funk MCH (RBC) [Entitic mass] 32.8 pg Normal 26.7-34.0 [facility] Comment on above: Performed By: #### C BC #### [facility] [address] [place] [address] Dr. Ekta Funk MCHC (RBC) [Mass/Vol] 33.8 g/dL Normal 29.9-35.2 [facility] Comment on above: Performed By: #### C BC #### [facility] [address] [place] [address] Dr. Ekta Funk MCV (RBC) [Entitic vol] 97.1 fL Normal 81.0-99.0 [facility] Comment on above: Performed By: #### C BC #### [facility] [address] [address] [address] Ekta Funk MONO # 0.8 103/ul Normal 0.3-0.8 [facility] Comment on above: Performed By: #### C BC #### [facility] [address] [address] [address] Ekta Funk Monocytes/100 WBC (Bld) 7.7 % Normal 1.7-12.0 [facility] Comment on above: Performed By: #### C BC #### [facility] [address] [address] [address] Ekta Funk NEUT # 7.3 103/ul Critically high 1.4-6.5 [facility] Comment on above: Performed By: #### C BC #### [facility] [address] [place] [address] Dr. Ekta Funk Neutrophils/100 WBC (Bld) 72.1 % Normal 43.0-75.0 [facility] Comment on above: Performed By: #### C BC #### [facility] [address] [address] [address] Ekta Funk Platelet mean volume (Bld) [Entitic vol] 9.4 fL Critically low 9.5-13.5 [facility] Comment on above: Performed By: #### C BC #### [facility] [address] [place] [address] Dr. Ekta Funk PLT 251 103/ul Normal 150-450 [facility] Comment on above: Performed By: #### C BC #### [facility] [address] [place] [address] Dr. Ekta Funk RBC 3.78 106/ul Critically low 4.20-5.40 [facility] Comment on above: Performed By: #### C BC #### [facility] [address] [address] [address] Ekta Funk WBC 10.1 103/ul Normal 4.0-11.0 [facility] Comment on above: Performed By: #### C BC #### [facility] [address] [address] [address] Ekta Funk FREE THYROXINE INDEX T7on FTI 2.73 Normal 1.30-4.50 [facility] Comment on above: Performed By: #### I NSULIN #### [facility] [address] [address] [address] Ekta Funk T3U 35.0 % Normal 30.0-39.0 [facility] Comment on above: Performed By: #### I NSULIN #### [facility] [address] [address] [address] Ekta Funk T4 [Mass/Vol] 7.80 ug/dL Normal 4.80-13.90 [facility] Comment on above: Performed By: #### I NSULIN #### [facility] [address] [place] [address] Dr. Ekta Funk GLYCOHEMOGLOBIN A1Con 2022 ADA RECOMMENDATION SEE BELOW Normal [facility] Comment on above: Result Comment: ADA RECOMMENDED LIMIT 4.0 - 6.0 ADA THERAPEUTIC TARGET < 7.0 ACTION SUGGESTED > 7.0 Performed By: #### B 12FOL, VITAD, IRON #### [facility] [address] [address] [address] Ekta Funk Glucose [Mass/Vol] 134 mg/dL Normal [facility] Comment on above: Performed By: #### B 12FOL, VITAD, IRON #### [facility] [address] [address] [address] Ekta Funk HbA1c (Bld) [Mass fraction] 6.3 % Critically high 4.5-6.2 [facility] Comment on above: Performed By: #### B 12FOL, VITAD, IRON #### [facility] [address] [place] [address] Dr. Ekta Funk IRONon 11-13-2022 Iron [Mass/Vol] 55.0 ug/dL Normal 50.0-170.0 [facility] Comment on above: Performed By: #### B 12FOL, VITAD, IRON #### [facility] [address] [address] [address] Ekta Funk LIPID PROFILEon 11-13-2022 CHOL-HDL RATIO NORM SEE BELOW Normal [facility] Comment on above: Result Comment: 3.3 - 4.4 LOW RISK 4.4 - 7.1 AVERAGE RISK 7.1 - 11.0 MODERATE RISK >11.0 HIGH RISK Performed By: #### I NSULIN #### [facility] [address] [address] [address] Ekta Funk Cholesterol [Mass/Vol] 294 mg/dL Critically high <=200 [facility] Comment on above: Performed By: #### I NSULIN #### [facility] [address] [address] [address] Ekta Funk Cholesterol in HDL [Mass/Vol] 64 mg/dL Critically high 40-60 [facility] Comment on above: Performed By: #### I NSULIN #### [facility] [address] [address] [address] Ekta Funk Cholesterol in LDL [Mass/Vol] 197.2 mg/dL Normal [facility] Comment on above: Performed By: #### I NSULIN #### [facility] [address] [address] [address] Ekta Funk Cholesterol.total/Ch olesterol in HDL [Mass ratio] 4.6 {ratio} Normal [facility] Comment on above: Performed By: #### I NSULIN #### [facility] [address] [address] [address] Ekta Funk HDL NORMAL > or = 60 mg/dl - LO W CARDIOVASCULAR RISK <40 mg/dl - HIGH CARDIOVASCULAR RISK Normal [facility] Comment on above: Performed By: #### I NSULIN #### [facility] [address] [address] [address] Ekta Funk LDL CALC NORMAL SEE BELOW Normal [facility] Comment on above: Result Comment: <100 mg/dl OPTIMAL 100 - 129 mg/dl NEAR OR ABOVE OPTIMAL 130 - 159 mg/dl BORDERLINE HIGH 160 - 189 mg/dl HIGH >190 mg/dl VERY HIGH Performed By: #### I NSULIN #### [facility] [address] [address] [address] Ekta Funk Triglyceride [Mass/Vol] 164 mg/dL Critically high <=150 [facility] Comment on above: Performed By: #### I NSULIN #### [facility] [address] [address] [address] Ekta Funk VLDL CALC 32.8 mg/dL Normal [facility] Comment on above: Performed By: #### I NSULIN #### [facility] [address] [place] [address] Dr. Ekta Funk PROF 14(COMP METB)on 023 Albumin [Mass/Vol] 3.0 g/dL Critically low 3.4-5.0 [facility] Comment on above: Performed By: #### I NSULIN #### [facility] [address] [place] [address] Dr. Ekta Funk Albumin/Globulin [Mass ratio] 0.6 {ratio} Normal [facility] Comment on above: Performed By: #### I NSULIN #### [facility] [address] [place] [address] Dr. Ekta Funk ALP [Catalytic activity/Vol] 92 U/L Normal 46-116 [facility] Comment on above: Performed By: #### I NSULIN #### [facility] [address] [place] [address] Dr. Ekta Funk ALT [Catalytic activity/Vol] 26 U/L Normal 14-59 [facility] Comment on above: Performed By: #### I NSULIN #### [facility] [address] [place] [address] Dr. Ekta Funk Anion gap [Moles/Vol] 16.2 mmol/L Normal [facility] Comment on above: Performed By: #### I NSULIN #### [facility] [address] [place] [address] Dr. Ekta Funk AST [Catalytic activity/Vol] 16 U/L Normal 15-37 [facility] Comment on above: Performed By: #### I NSULIN #### [facility] [address] [address] [address] Ekta Funk Bilirubin [Mass/Vol] 0.5 mg/dL Normal 0.2-1.0 [facility] Comment on above: Performed By: #### I NSULIN #### [facility] [address] [place] [address] Dr. Ekta Funk Calcium [Mass/Vol] 9.7 mg/dL Normal 8.5-10.1 [facility] Comment on above: Performed By: #### I NSULIN #### [facility] [address] [place] [address] Dr. Ekta Funk Chloride [Moles/Vol] 105 mmol/L Normal 98-107 [facility] Comment on above: Performed By: #### I NSULIN #### [facility] [address] [place] [address] Dr. Ekta Funk CO2 [Moles/Vol] 24.9 mmol/L Normal 21.0-32.0 [facility] Comment on above: Performed By: #### I NSULIN #### [facility] [address] [place] [address] Dr. Ekta Funk Creatinine [Mass/Vol] 2.18 mg/dL Critically high 0.55-1.02 [facility] Comment on above: Performed By: #### I NSULIN #### [facility] [address] [place] [address] Dr. Ekta Funk EGFR-AF SURINAMESE 27 mL/min/1.73m2 Critically low >=60 [facility] Comment on above: Performed By: #### I NSULIN #### [facility] [address] [place] [address] Dr. Ekta Funk EGFR-NON AF SURINAMESE 22 mL/min/1.73m2 Critically low >=60 [facility] Comment on above: Performed By: #### I NSULIN #### [facility] [address] [place] [address] Dr. Ekta Funk Globulin (S) [Mass/Vol] 4.7 g/dL Normal [facility] Comment on above: Performed By: #### I NSULIN #### [facility] [address] [address] [address] Ekta Funk Glucose [Mass/Vol] 114 mg/dL Critically high 74-106 [facility] Comment on above: Performed By: #### I NSULIN #### [facility] [address] [address] [address] Ekta Funk Potassium [Moles/Vol] 5.1 mmol/L Normal 3.5-5.1 [facility] Comment on above: Performed By: #### I NSULIN #### [facility] [address] [address] [address] Ekta Funk Protein [Mass/Vol] 7.7 g/dL Normal 6.4-8.2 [facility] Comment on above: Performed By: #### I NSULIN #### [facility] [address] [address] [address] Ekta Funk Sodium [Moles/Vol] 141 mmol/L Normal 136-145 [facility] Comment on above: Performed By: #### I NSULIN #### [facility] [address] [address] [address] Ekta Funk Urea nitrogen [Mass/Vol] 51.0 mg/dL Critically high 7.0-18.0 [facility] Comment on above: Performed By: #### I NSULIN #### [facility] [address] [address] [address] Ekta Funk Urea nitrogen/Creatinine [Mass ratio] 23.4 mg/mg Normal [facility] Comment on above: Performed By: #### I NSULIN #### [facility] [address] [address] [address] Ekta Funk TSHon 11-13-2022 TSH 0.935 uIU/mL Normal 0.358-3.740 [facility] Comment on above: Performed By: #### I NSULIN #### [facility] [address] [address] [address] Ekta Funk XR CHEST 2 Von 11-13-2022 XR CHEST 2 V EXAMINATION: XR CHES T 2 V HISTORY: Fatigue COMPARISON: 10/21/2022 TECHNIQUE: PA and lateral FINDINGS: LUNGS: No significant pulmonary parenchymal abnormalities. Hyperinflation VASCULATURE: No increased pulmonary vasculature. PLEURA: No pneumothorax, effusion, or pleural thickening. CARDIAC: No cardiomegaly or cardiac silhouette abnormality. MEDIASTINUM: No visible mass or adenopathy. Aortic atherosclerosis BONES: No fracture or visible bone lesion. OTHER: Retrocardiac opacity likely a hiatal hernia. IMPRESSION: No acute disease. Electronically authenticated by: GODWIN BECK Date: 2022-11-13 15:40 Normal [facility] PROF 14(COMP METB)on 023 Albumin [Mass/Vol] 3.0 g/dL Critically low 3.4-5.0 Th e [facility] Comment on above: Performed By: #### B 12FOL, VITAD, IRON #### [facility] [address] [place] [address] Dr. Ekta Funk Albumin/Globulin [Mass ratio] 0.7 {ratio} Normal [facility] Comment on above: Performed By: #### B 12FOL, VITAD, IRON #### [facility] [address] [place] [address] Dr. Ekta Funk ALP [Catalytic activity/Vol] 89 U/L Normal 46-116 [facility] Comment on above: Performed By: #### B 12FOL, VITAD, IRON #### [facility] [address] [place] [address] Dr. Ekta Funk ALT [Catalytic activity/Vol] 29 U/L Normal 14-59 [facility] Comment on above: Performed By: #### B 12FOL, VITAD, IRON #### [facility] [address] [place] [address] Dr. Ekta Funk Anion gap [Moles/Vol] 15.2 mmol/L Normal [facility] Comment on above: Performed By: #### B 12FOL, VITAD, IRON #### [facility] [address] [place] [address] Dr. Ekta Funk AST [Catalytic activity/Vol] 14 U/L Critically low 15-37 [facility] Comment on above: Performed By: #### B 12FOL, VITAD, IRON #### [facility] [address] [address] [address] Ekta Funk Bilirubin [Mass/Vol] 0.4 mg/dL Normal 0.2-1.0 [facility] Comment on above: Performed By: #### B 12FOL, VITAD, IRON #### [facility] [address] [place] [address] Dr. Ekta Funk Calcium [Mass/Vol] 9.1 mg/dL Normal 8.5-10.1 [facility] Comment on above: Performed By: #### B 12FOL, VITAD, IRON #### [facility] [address] [place] [address] Dr. Ekta Funk Chloride [Moles/Vol] 106 mmol/L Normal 98-107 [facility] Comment on above: Performed By: #### B 12FOL, VITAD, IRON #### [facility] [address] [place] [address] Dr. Ekta Funk CO2 [Moles/Vol] 24.2 mmol/L Normal 21.0-32.0 [facility] Comment on above: Performed By: #### B 12FOL, VITAD, IRON #### [facility] [address] [place] [address] Dr. Ekta Funk Creatinine [Mass/Vol] 1.89 mg/dL Critically high 0.55-1.02 [facility] Comment on above: Performed By: #### B 12FOL, VITAD, IRON #### [facility] [address] [address] [address] Ekta Funk EGFR-AF SURINAMESE 32 mL/min/1.73m2 Critically low >=60 [facility] Comment on above: Performed By: #### B 12FOL, VITAD, IRON #### [facility] [address] [place] [address] Dr. Ekta Funk EGFR-NON AF SURINAMESE 26 mL/min/1.73m2 Critically low >=60 [facility] Comment on above: Performed By: #### B 12FOL, VITAD, IRON #### [facility] [address] [place] [address] Dr. Ekta Funk Globulin (S) [Mass/Vol] 4.1 g/dL Normal [facility] Comment on above: Performed By: #### B 12FOL, VITAD, IRON #### [facility] [address] [place] [address] Dr. Ekta Funk Glucose [Mass/Vol] 108 mg/dL Critically high 74-106 [facility] Comment on above: Performed By: #### B 12FOL, VITAD, IRON #### [facility] [address] [place] [address] Dr. Ekta Funk Potassium [Moles/Vol] 4.4 mmol/L Normal 3.5-5.1 [facility] Comment on above: Performed By: #### B 12FOL, VITAD, IRON #### [facility] [address] [place] [address] Dr. Ekta Fukn Protein [Mass/Vol] 7.1 g/dL Normal 6.4-8.2 [facility] Comment on above: Performed By: #### B 12FOL, VITAD, IRON #### [facility] [address] [place] [address] Dr. Ekta Funk Sodium [Moles/Vol] 141 mmol/L Normal 136-145 [facility] Comment on above: Performed By: #### B 12FOL, VITAD, IRON #### [facility] [address] [place] [address] Dr. Ekta Funk Urea nitrogen [Mass/Vol] 40.0 mg/dL Critically high 7.0-18.0 [facility] Comment on above: Performed By: #### B 12FOL, VITAD, IRON #### [facility] [address] [address] [address] Ekta Funk Urea nitrogen/Creatinine [Mass ratio] 21.2 mg/mg Normal [facility] Comment on above: Performed By: #### B 12FOL, VITAD, IRON #### [facility] [address] [place] [address] Dr. Ekta Funk BNPon 10-23-2022 Natriuretic peptide B (Bld) [Mass/Vol] 507.0 pg/mL Normal <=900.0 [facility] Comment on above: Performed By: #### B 12FOL, VITAD, IRON #### [facility] [address] [place] [address] Dr. Ekta Funk CBC AUTO DIFFon 10-23-2022 BASO # 0.0 103/ul Normal 0.0-0.1 [facility] Comment on above: Performed By: #### C BC #### [facility] [address] [place] [address] Dr. Ekta Funk Basophils/100 WBC (Bld) 0.2 % Normal 0.2-2.0 [facility] Comment on above: Performed By: #### C BC #### [facility] [address] [place] [address] Dr. Ekta Funk EO # 0.1 103/ul Normal 0.0-0.7 [facility] Comment on above: Performed By: #### C BC #### [facility] [address] [place] [address] Dr. Ekta Funk Eosinophils/100 WBC (Bld) 1.1 % Normal 0.9-7.0 [facility] Comment on above: Performed By: #### C BC #### [facility] [address] [place] [address] Dr. Ekta Funk Erythrocyte distribution width (RBC) [Ratio] 12.8 % Normal 11.0-15.0 [facility] Comment on above: Performed By: #### C BC #### [facility] [address] [place] [address] Dr. Ekta Funk Hematocrit (Bld) [Volume fraction] 37.1 % Normal 36.0-48.0 [facility] Comment on above: Performed By: #### C BC #### [facility] [address] [place] [address] Dr. Ekta Funk Hemoglobin (Bld) [Mass/Vol] 13.0 g/dL Normal 12.0-16.0 [facility] Comment on above: Performed By: #### C BC #### [facility] [address] [place] [address] Dr. Ekta Funk IG # 0.11 10e3/ul Critically high 0.00-0.03 [facility] Comment on above: Performed By: #### C BC #### [facility] [address] [place] [address] Dr. Ekta Funk IG % 1.1 % Critically high 0.0-0.5 [facility] Comment on above: Performed By: #### C BC #### [facility] [address] [place] [address] Dr. Ekta Funk LYMPH # 1.6 103/ul Normal 1.2-3.8 [facility] Comment on above: Performed By: #### C BC #### [facility] [address] [place] [address] Dr. Ekta Funk Lymphocytes/100 WBC (Bld) 15.6 % Critically low 20.5-60.0 [facility] Comment on above: Performed By: #### C BC #### [facility] [address] [place] [address] Dr. Ekta Funk MANUAL DIFF REQ NO Normal [facility] Comment on above: Performed By: #### C BC #### [facility] [address] [place] [address] Dr. Ekta Funk MCH (RBC) [Entitic mass] 32.8 pg Normal 26.7-34.0 [facility] Comment on above: Performed By: #### C BC #### [facility] [address] [place] [address] Dr. Ekta Funk MCHC (RBC) [Mass/Vol] 35.0 g/dL Normal 29.9-35.2 [facility] Comment on above: Performed By: #### C BC #### [facility] [address] [place] [address] Dr. Ekta Funk MCV (RBC) [Entitic vol] 93.7 fL Normal 81.0-99.0 [facility] Comment on above: Performed By: #### C BC #### [facility] [address] [place] [address] Dr. Ekta Funk MONO # 0.9 103/ul Critically high 0.3-0.8 [facility] Comment on above: Performed By: #### C BC #### [facility] [address] [place] [address] Dr. Ekta Funk Monocytes/100 WBC (Bld) 8.3 % Normal 1.7-12.0 [facility] Comment on above: Performed By: #### C BC #### [facility] [address] [place] [address] Dr. Ekta Funk NEUT # 7.5 103/ul Critically high 1.4-6.5 [facility] Comment on above: Performed By: #### C BC #### [facility] [address] [place] [address] Dr. Ekta Funk Neutrophils/100 WBC (Bld) 73.7 % Normal 43.0-75.0 [facility] Comment on above: Performed By: #### C BC #### [facility] [address] [place] [address] Dr. Ekta Funk Platelet mean volume (Bld) [Entitic vol] 10.3 fL Normal 9.5-13.5 [facility] Comment on above: Performed By: #### C BC #### [facility] [address] [place] [address] Dr. Ekta Funk PLT 135 103/ul Critically low 150-450 [facility] Comment on above: Performed By: #### C BC #### [facility] [address] [place] [address] Dr. Ekta Funk RBC 3.96 106/ul Critically low 4.20-5.40 [facility] Comment on above: Performed By: #### C BC #### [facility] [address] [place] [address] Dr. Ekta Funk WBC 10.2 103/ul Normal 4.0-11.0 [facility] Comment on above: Performed By: #### C BC #### [facility] [address] [place] [address] Dr. Ekta Funk PROF 14(COMP METB)on 023 Albumin [Mass/Vol] 2.7 g/dL Critically low 3.4-5.0 [facility] Comment on above: Performed By: #### B 12FOL, VITAD, IRON #### [facility] [address] [place] [address] Dr. Ekta Funk Albumin/Globulin [Mass ratio] 0.8 {ratio} Normal [facility] Comment on above: Performed By: #### B 12FOL, VITAD, IRON #### [facility] [address] [place] [address] Dr. Ekta Funk ALP [Catalytic activity/Vol] 74 U/L Normal 46-116 [facility] Comment on above: Performed By: #### B 12FOL, VITAD, IRON #### [facility] [address] [place] [address] Dr. Ekta Funk ALT [Catalytic activity/Vol] 26 U/L Normal 14-59 [facility] Comment on above: Performed By: #### B 12FOL, VITAD, IRON #### [facility] [address] [place] [address] Dr. Ekta Funk Anion gap [Moles/Vol] 16.5 mmol/L Normal [facility] Comment on above: Performed By: #### B 12FOL, VITAD, IRON #### [facility] [address] [place] [address] Dr. Ekta Funk AST [Catalytic activity/Vol] 15 U/L Normal 15-37 [facility] Comment on above: Performed By: #### B 12FOL, VITAD, IRON #### [facility] [address] [place] [address] Dr. Ekta Funk Bilirubin [Mass/Vol] 0.4 mg/dL Normal 0.2-1.0 [facility] Comment on above: Performed By: #### B 12FOL, VITAD, IRON #### [facility] [address] [place] [address] Dr. Ekta Funk Calcium [Mass/Vol] 8.1 mg/dL Critically low 8.5-10.1 [facility] Comment on above: Performed By: #### B 12FOL, VITAD, IRON #### [facility] [address] [address] [address] Ekta Funk Chloride [Moles/Vol] 96 mmol/L Critically low 98-107 [facility] Comment on above: Performed By: #### B 12FOL, VITAD, IRON #### [facility] [address] [place] [address] Dr. Ekta Funk CO2 [Moles/Vol] 26.1 mmol/L Normal 21.0-32.0 [facility] Comment on above: Performed By: #### B 12FOL, VITAD, IRON #### [facility] [address] [place] [address] Dr. Ekta Funk Creatinine [Mass/Vol] 3.28 mg/dL Critically high 0.55-1.02 [facility] Comment on above: Performed By: #### B 12FOL, VITAD, IRON #### [facility] [address] [place] [address] Dr. Ekta Funk EGFR-AF SURINAMESE 17 mL/min/1.73m2 Critically low >=60 [facility] Comment on above: Performed By: #### B 12FOL, VITAD, IRON #### [facility] [address] [place] [address] Dr. Ekta Funk EGFR-NON AF SURINAMESE 14 mL/min/1.73m2 Critically low >=60 [facility] Comment on above: Performed By: #### B 12FOL, VITAD, IRON #### [facility] [address] [place] [address] Dr. Ekta Funk Globulin (S) [Mass/Vol] 3.6 g/dL Normal [facility] Comment on above: Performed By: #### B 12FOL, VITAD, IRON #### [facility] [address] [place] [address] Dr. Ekta Funk Glucose [Mass/Vol] 132 mg/dL Critically high 74-106 [facility] Comment on above: Performed By: #### B 12FOL, VITAD, IRON #### [facility] [address] [place] [address] Dr. Ekta Funk Potassium [Moles/Vol] 4.6 mmol/L Normal 3.5-5.1 [facility] Comment on above: Performed By: #### B 12FOL, VITAD, IRON #### [facility] [address] [place] [address] Dr. Ekta Funk Protein [Mass/Vol] 6.3 g/dL Critically low 6.4-8.2 [facility] Comment on above: Performed By: #### B 12FOL, VITAD, IRON #### [facility] [address] [place] [address] Dr. Ekta Funk Sodium [Moles/Vol] 134 mmol/L Critically low 136-145 [facility] Comment on above: Performed By: #### B 12FOL, VITAD, IRON #### [facility] [address] [place] [address] Dr. Ekta Funk Urea nitrogen [Mass/Vol] 74.0 mg/dL Critically high 7.0-18.0 [facility] Comment on above: Performed By: #### B 12FOL, VITAD, IRON #### [facility] [address] [place] [address] Dr. Ekta Funk Urea nitrogen/Creatinine [Mass ratio] 22.6 mg/mg Normal [facility] Comment on above: Performed By: #### B 12FOL, VITAD, IRON #### [facility] [address] [place] [address] Dr. Ekta Funk BNPon 10-22-2022 Natriuretic peptide B (Bld) [Mass/Vol] 1411.0 pg/mL Critically high <=900.0 [facility] Comment on above: Performed By: #### B 12FOL, VITAD, IRON #### [facility] [address] [place] [address] Dr. Ekta Funk CBC AUTO DIFFon 10-22-2022 BASO # 0.0 103/ul Normal 0.0-0.1 [facility] Comment on above: Performed By: #### B 12FOL, VITAD, IRON #### [facility] [address] [place] [address] Dr. Ekta Funk Basophils/100 WBC (Bld) 0.3 % Normal 0.2-2.0 [facility] Comment on above: Performed By: #### B 12FOL, VITAD, IRON #### [facility] [address] [place] [address] Dr. Ekta Funk EO # 0.1 103/ul Normal 0.0-0.7 [facility] Comment on above: Performed By: #### B 12FOL, VITAD, IRON #### [facility] [address] [place] [address] Dr. Ekta Funk Eosinophils/100 WBC (Bld) 0.6 % Critically low 0.9-7.0 [facility] Comment on above: Performed By: #### B 12FOL, VITAD, IRON #### [facility] [address] [place] [address] Dr. Ekta Funk Erythrocyte distribution width (RBC) [Ratio] 12.9 % Normal 11.0-15.0 [facility] Comment on above: Performed By: #### B 12FOL, VITAD, IRON #### [facility] [address] [place] [address] Dr. Ekta Funk Hematocrit (Bld) [Volume fraction] 40.8 % Normal 36.0-48.0 [facility] Comment on above: Performed By: #### B 12FOL, VITAD, IRON #### [facility] [address] [place] [address] Dr. Ekta Funk Hemoglobin (Bld) [Mass/Vol] 14.0 g/dL Normal 12.0-16.0 [facility] Comment on above: Performed By: #### B 12FOL, VITAD, IRON #### [facility] [address] [place] [address] Dr. Ekta Funk IG # 0.09 10e3/ul Critically high 0.00-0.03 [facility] Comment on above: Performed By: #### B 12FOL, VITAD, IRON #### [facility] [address] [place] [address] Dr. Ekta Funk IG % 0.8 % Critically high 0.0-0.5 [facility] Comment on above: Performed By: #### B 12FOL, VITAD, IRON #### [facility] [address] [place] [address] Dr. Ekta Funk LYMPH # 1.8 103/ul Normal 1.2-3.8 [facility] Comment on above: Performed By: #### B 12FOL, VITAD, IRON #### [facility] [address] [place] [address] Dr. Ekta Funk Lymphocytes/100 WBC (Bld) 16.2 % Critically low 20.5-60.0 [facility] Comment on above: Performed By: #### B 12FOL, VITAD, IRON #### [facility] [address] [place] [address] Dr. Ekta Funk MANUAL DIFF REQ NO Normal [facility] Comment on above: Performed By: #### B 12FOL, VITAD, IRON #### [facility] [address] [place] [address] Dr. Ekta Funk MCH (RBC) [Entitic mass] 32.3 pg Normal 26.7-34.0 [facility] Comment on above: Performed By: #### B 12FOL, VITAD, IRON #### [facility] [address] [place] [address] Dr. Ekta Funk MCHC (RBC) [Mass/Vol] 34.3 g/dL Normal 29.9-35.2 [facility] Comment on above: Performed By: #### B 12FOL, VITAD, IRON #### [facility] [address] [place] [address] Dr. Ekta Funk MCV (RBC) [Entitic vol] 94.2 fL Normal 81.0-99.0 [facility] Comment on above: Performed By: #### B 12FOL, VITAD, IRON #### [facility] [address] [place] [address] Dr. Ekta Funk MONO # 0.8 103/ul Normal 0.3-0.8 [facility] Comment on above: Performed By: #### B 12FOL, VITAD, IRON #### [facility] [address] [place] [address] Dr. Ekta Funk Monocytes/100 WBC (Bld) 7.3 % Normal 1.7-12.0 [facility] Comment on above: Performed By: #### B 12FOL, VITAD, IRON #### [facility] [address] [place] [address] Dr. Ekta Funk NEUT # 8.1 103/ul Critically high 1.4-6.5 [facility] Comment on above: Performed By: #### B 12FOL, VITAD, IRON #### [facility] [address] [place] [address] Dr. Ekta Funk Neutrophils/100 WBC (Bld) 74.8 % Normal 43.0-75.0 [facility] Comment on above: Performed By: #### B 12FOL, VITAD, IRON #### [facility] [address] [place] [address] Dr. Ekta Funk Platelet mean volume (Bld) [Entitic vol] 9.8 fL Normal 9.5-13.5 [facility] Comment on above: Performed By: #### B 12FOL, VITAD, IRON #### [facility] [address] [place] [address] Dr. Ekta Funk PLT 226 103/ul Normal 150-450 [facility] Comment on above: Performed By: #### B 12FOL, VITAD, IRON #### [facility] [address] [place] [address] Dr. Ekta Funk RBC 4.33 106/ul Normal 4.20-5.40 [facility] Comment on above: Performed By: #### B 12FOL, VITAD, IRON #### [facility] [address] [place] [address] Dr. Ekta Funk WBC 10.9 103/ul Normal 4.0-11.0 [facility] Comment on above: Performed By: #### B 12FOL, VITAD, IRON #### [facility] [address] [place] [address] Dr. Ekta Fnuk PROF 14(COMP METB)on 023 Albumin [Mass/Vol] 3.1 g/dL Critically low 3.4-5.0 [facility] Comment on above: Performed By: #### B 12FOL, VITAD, IRON #### [facility] [address] [place] [address] Dr. Ekta Funk Albumin/Globulin [Mass ratio] 0.7 {ratio} Normal [facility] Comment on above: Performed By: #### B 12FOL, VITAD, IRON #### [facility] [address] [place] [address] Dr. Ekta Funk ALP [Catalytic activity/Vol] 81 U/L Normal 46-116 [facility] Comment on above: Performed By: #### B 12FOL, VITAD, IRON #### [facility] [address] [place] [address] Dr. Ekta Funk ALT [Catalytic activity/Vol] 30 U/L Normal 14-59 [facility] Comment on above: Performed By: #### B 12FOL, VITAD, IRON #### [facility] [address] [place] [address] Dr. Ekta Funk Anion gap [Moles/Vol] 17.3 mmol/L Normal [facility] Comment on above: Performed By: #### B 12FOL, VITAD, IRON #### [facility] [address] [place] [address] Dr. Ekta Funk AST [Catalytic activity/Vol] 11 U/L Critically low 15-37 [facility] Comment on above: Performed By: #### B 12FOL, VITAD, IRON #### [facility] [address] [place] [address] Dr. Ekta Funk Bilirubin [Mass/Vol] 0.5 mg/dL Normal 0.2-1.0 [facility] Comment on above: Performed By: #### B 12FOL, VITAD, IRON #### [facility] [address] [address] [address] Ekta Funk Calcium [Mass/Vol] 8.6 mg/dL Normal 8.5-10.1 [facility] Comment on above: Performed By: #### B 12FOL, VITAD, IRON #### [facility] [address] [place] [address] Dr. Ekta Funk Chloride [Moles/Vol] 95 mmol/L Critically low 98-107 [facility] Comment on above: Performed By: #### B 12FOL, VITAD, IRON #### [facility] [address] [address] [address] Ekta Funk CO2 [Moles/Vol] 27.3 mmol/L Normal 21.0-32.0 [facility] Comment on above: Performed By: #### B 12FOL, VITAD, IRON #### [facility] [address] [place] [address] Dr. Ekta Funk Creatinine [Mass/Vol] 3.17 mg/dL Critically high 0.55-1.02 [facility] Comment on above: Performed By: #### B 12FOL, VITAD, IRON #### [facility] [address] [address] [address] Ekta Funk EGFR-AF SURINAMESE 17 mL/min/1.73m2 Critically low >=60 [facility] Comment on above: Performed By: #### B 12FOL, VITAD, IRON #### [facility] [address] [place] [address] Dr. Ekta Funk EGFR-NON AF SURINAMESE 14 mL/min/1.73m2 Critically low >=60 [facility] Comment on above: Performed By: #### B 12FOL, VITAD, IRON #### [facility] [address] [place] [address] Dr. Ekta Funk Globulin (S) [Mass/Vol] 4.6 g/dL Normal [facility] Comment on above: Performed By: #### B 12FOL, VITAD, IRON #### [facility] [address] [place] [address] Dr. Ekta Funk Glucose [Mass/Vol] 139 mg/dL Critically high 74-106 [facility] Comment on above: Performed By: #### B 12FOL, VITAD, IRON #### [facility] [address] [place] [address] Dr. Ekta Funk Potassium [Moles/Vol] 4.6 mmol/L Normal 3.5-5.1 [facility] Comment on above: Performed By: #### B 12FOL, VITAD, IRON #### [facility] [address] [place] [address] Dr. Ekta Funk Protein [Mass/Vol] 7.7 g/dL Normal 6.4-8.2 [facility] Comment on above: Performed By: #### B 12FOL, VITAD, IRON #### [facility] [address] [place] [address] Dr. Ekta Funk Sodium [Moles/Vol] 135 mmol/L Critically low 136-145 [facility] Comment on above: Performed By: #### B 12FOL, VITAD, IRON #### [facility] [address] [place] [address] Dr. Ekta Funk Urea nitrogen [Mass/Vol] 73.0 mg/dL Critically high 7.0-18.0 [facility] Comment on above: Performed By: #### B 12FOL, VITAD, IRON #### [facility] [address] [place] [address] Dr. Ekta Funk Urea nitrogen/Creatinine [Mass ratio] 23.0 mg/mg Normal [facility] Comment on above: Performed By: #### B 12FOL, VITAD, IRON #### [facility] [address] [place] [address] Dr. Ekta Funk BNPon 10-21-2022 Natriuretic peptide B (Bld) [Mass/Vol] 2007.0 pg/mL Critically high <=900.0 [facility] Comment on above: Performed By: #### C MP #### [facility] [facility] [address] [place] [address] Dr. Ekta Funk CBC AUTO DIFFon 02-11-2023 BASO # 0.0 103/ul Normal 0.0-0.1 [facility] Comment on above: Performed By: #### C BC #### [facility] [address] [place] [address] Dr. Ekta Funk Basophils/100 WBC (Bld) 0.2 % Normal 0.2-2.0 [facility] Comment on above: Performed By: #### C BC #### [facility] [address] [place] [address] Dr. Ekta Funk EO # 0.1 103/ul Normal 0.0-0.7 [facility] Comment on above: Performed By: #### C BC #### [facility] [address] [place] [address] Dr. Ekta Funk Eosinophils/100 WBC (Bld) 0.9 % Normal 0.9-7.0 [facility] Comment on above: Performed By: #### C BC #### [facility] [address] [place] [address] Dr. Ekta Funk Erythrocyte distribution width (RBC) [Ratio] 12.8 % Normal 11.0-15.0 [facility] Comment on above: Performed By: #### C BC #### [facility] [address] [place] [address] Dr. Ekta Funk Hematocrit (Bld) [Volume fraction] 38.8 % Normal 36.0-48.0 [facility] Comment on above: Performed By: #### C BC #### [facility] [address] [place] [address] Dr. Ekta Funk Hemoglobin (Bld) [Mass/Vol] 13.3 g/dL Normal 12.0-16.0 [facility] Comment on above: Performed By: #### C BC #### [facility] [address] [place] [address] Dr. Ekta Funk IG # 0.08 10e3/ul Critically high 0.00-0.03 [facility] Comment on above: Performed By: #### C BC #### [facility] [address] [place] [address] Dr. Ekta Funk IG % 0.8 % Critically high 0.0-0.5 [facility] Comment on above: Performed By: #### C BC #### [facility] [address] [place] [address] Dr. Ekta Funk LYMPH # 1.7 103/ul Normal 1.2-3.8 [facility] Comment on above: Performed By: #### C BC #### [facility] [address] [place] [address] Dr. Ekta Funk Lymphocytes/100 WBC (Bld) 17.3 % Critically low 20.5-60.0 [facility] Comment on above: Performed By: #### C BC #### [facility] [address] [place] [address] Dr. Ekta Funk MANUAL DIFF REQ NO Normal [facility] Comment on above: Performed By: #### C BC #### [facility] [address] [place] [address] Dr. Ekta Funk MCH (RBC) [Entitic mass] 32.1 pg Normal 26.7-34.0 [facility] Comment on above: Performed By: #### C BC #### [facility] [address] [place] [address] Dr. Ekta Funk MCHC (RBC) [Mass/Vol] 34.3 g/dL Normal 29.9-35.2 [facility] Comment on above: Performed By: #### C BC #### [facility] [address] [place] [address] Dr. Ekta Funk MCV (RBC) [Entitic vol] 93.7 fL Normal 81.0-99.0 [facility] Comment on above: Performed By: #### C BC #### [facility] [address] [place] [address] Dr. Ekta Funk MONO # 0.6 103/ul Normal 0.3-0.8 [facility] Comment on above: Performed By: #### C BC #### [facility] [address] [place] [address] Dr. Ekta Funk Monocytes/100 WBC (Bld) 6.4 % Normal 1.7-12.0 [facility] Comment on above: Performed By: #### C BC #### [facility] [address] [address] [address] Ekta Funk NEUT # 7.4 103/ul Critically high 1.4-6.5 [facility] Comment on above: Performed By: #### C BC #### [facility] [address] [address] [address] Ekta Funk Neutrophils/100 WBC (Bld) 74.4 % Normal 43.0-75.0 [facility] Comment on above: Performed By: #### C BC #### [facility] [address] [address] [address] Ekta Funk Platelet mean volume (Bld) [Entitic vol] 9.8 fL Normal 9.5-13.5 [facility] Comment on above: Performed By: #### C BC #### [facility] [address] [address] [address] Ekta Funk PLT 193 103/ul Normal 150-450 [facility] Comment on above: Performed By: #### C BC #### [facility] [address] [address] [address] Ekta Funk RBC 4.14 106/ul Critically low 4.20-5.40 [facility] Comment on above: Performed By: #### C BC #### [facility] [address] [address] [address] Ekta Funk WBC 9.9 103/ul Normal 4.0-11.0 [facility] Comment on above: Performed By: #### C BC #### [facility] [address] [address] [address] Ekta Funk PROF 14(COMP METB)on 023 Albumin [Mass/Vol] 3.2 g/dL Critically low 3.4-5.0 [facility] Comment on above: Performed By: #### I NSULIN #### [facility] [address] [address] [address] Ekta Funk Albumin/Globulin [Mass ratio] 0.8 {ratio} Normal [facility] Comment on above: Performed By: #### I NSULIN #### [facility] [address] [address] [address] Ekta Funk ALP [Catalytic activity/Vol] 82 U/L Normal 46-116 [facility] Comment on above: Performed By: #### I NSULIN #### [facility] [address] [address] [address] Ekta Funk ALT [Catalytic activity/Vol] 38 U/L Normal 14-59 [facility] Comment on above: Performed By: #### I NSULIN #### [facility] [address] [address] [address] Ekta Funk Anion gap [Moles/Vol] 19.1 mmol/L Normal [facility] Comment on above: Performed By: #### I NSULIN #### [facility] [address] [place] [address] Dr. Ekta Funk AST [Catalytic activity/Vol] 19 U/L Normal 15-37 [facility] Comment on above: Performed By: #### I NSULIN #### [facility] [address] [address] [address] Ekta Funk Bilirubin [Mass/Vol] 0.4 mg/dL Normal 0.2-1.0 [facility] Comment on above: Performed By: #### I NSULIN #### [facility] [address] [address] [address] Ekta Funk Calcium [Mass/Vol] 9.2 mg/dL Normal 8.5-10.1 [facility] Comment on above: Performed By: #### I NSULIN #### [facility] [address] [address] [address] Ekta Funk Chloride [Moles/Vol] 98 mmol/L Normal 98-107 [facility] Comment on above: Performed By: #### I NSULIN #### [facility] [address] [address] [address] Ekta Fukn CO2 [Moles/Vol] 26.4 mmol/L Normal 21.0-32.0 [facility] Comment on above: Performed By: #### I NSULIN #### [facility] [address] [address] [address] Ekta Funk Creatinine [Mass/Vol] 2.20 mg/dL Critically high 0.55-1.02 [facility] Comment on above: Performed By: #### I NSULIN #### [facility] [address] [address] [address] Ekta Funk EGFR-AF SURINAMESE 26 mL/min/1.73m2 Critically low >=60 [facility] Comment on above: Performed By: #### I NSULIN #### [facility] [address] [address] [address] Ekta Funk EGFR-NON AF SURINAMESE 22 mL/min/1.73m2 Critically low >=60 [facility] Comment on above: Performed By: #### I NSULIN #### [facility] [address] [address] [address] Ekta Funk Globulin (S) [Mass/Vol] 3.8 g/dL Normal [facility] Comment on above: Performed By: #### I NSULIN #### [facility] [address] [address] [address] Ekta Funk Glucose [Mass/Vol] 142 mg/dL Critically high 74-106 [facility] Comment on above: Performed By: #### I NSULIN #### [facility] [address] [address] [address] Ekta Funk Potassium [Moles/Vol] 4.5 mmol/L Normal 3.5-5.1 [facility] Comment on above: Performed By: #### I NSULIN #### [facility] [address] [address] [address] Ekta Funk Protein [Mass/Vol] 7.0 g/dL Normal 6.4-8.2 [facility] Comment on above: Performed By: #### I NSULIN #### [facility] [address] [address] [address] Ekta Funk Sodium [Moles/Vol] 139 mmol/L Normal 136-145 [facility] Comment on above: Performed By: #### I NSULIN #### [facility] [address] [address] [address] Ekta Funk Urea nitrogen [Mass/Vol] 57.0 mg/dL Critically high 7.0-18.0 [facility] Comment on above: Performed By: #### I NSULIN #### [facility] [address] [address] [address] Ekta Funk Urea nitrogen/Creatinine [Mass ratio] 25.9 mg/mg Normal [facility] Comment on above: Performed By: #### I NSULIN #### [facility] [address] [address] [address] Ekta Funk T3, TOTAL (TRIIODOTHYRONINE) on 10-21-2022 T3, TOTAL 63 ng/dL Critically low 71-180 [facility] Comment on above: Performed By: #### C MP #### [facility] [address] [address] [address] Ekta Funk XR ABD FLAT_UPon 10-21-2022 XR ABD FLAT_UP EXAMINATION: XR ABD FLAT_UP HISTORY: Generalized abdominal pain , shortness of breath COMPARISON: No relevant comparison available. FINDINGS: BOWEL GAS PATTERN: Non-obstructed. FREE AIR: None. CALCIFICATIONS: None significant. BONES: Mild left convex curvature lumbar spine. No appreciable fracture. OTHER: Negative. IMPRESSION: 1. Normal bowel gas pattern. No suspicious abdominal findings. Electronically authenticated by: VISHNU MARIE Date: 2022-10-21 11:[address] [facility] XR CHEST 2 Von 10-21-2022 XR CHEST 2 V EXAM: XR CHEST 2 V, 10/21/2022 HISTORY: SHORTNESS OF BREATH COMPARISON: Previous x-ray from 11/04/[address] chest from 07/29/2021 TECHNIQUE: Frontal and lateral view of the chest. FINDINGS: Cardiac silhouette within normal limits. Mild tortuosity of the thoracic aorta with atherosclerotic calcification of the aortic arch. Bilateral mild COPD. No focal consolidation or pulmonary edema. Mild degenerative changes thoracic spine with osteopenia. IMPRESSION: Mild COPD. No acute cardiopulmonary findings or significant interval change. Electronically authenticated by: CHRISTIANO MORALES Date: 2022-10-21 11:[address] [facility] BNPon 10-20-2022 Natriuretic peptide B (Bld) [Mass/Vol] 2512.0 pg/mL Critically high <=900.0 [facility] Comment on above: Performed By: #### B 12FOL, VITAD, IRON #### [facility] [address] [address] [address] Ekta Funk CARDIAC BRITTANIE ADMITon 023 CK [Catalytic activity/Vol] 35 U/L Normal 26-192 [facility] Comment on above: Performed By: #### B 12FOL, VITAD, IRON #### [facility] [address] [address] [address] Ekta Funk CK.MB [Mass/Vol] 0.64 ng/mL Normal <=3.60 [facility] Comment on above: Performed By: #### B 12FOL, VITAD, IRON #### [facility] [address] [address] [address] Ekta Funk HSTROP 28.1 pg/mL Normal 4.0-51.3 [facility] Comment on above: Result Comment: CUT- OFF POINTS HAVE BEEN ESTABLISHED BASED ON THE FOURTH UNIVERSAL DEFINITIONS OF MYOCARDIAL INFARCTION. THE UPPER REFERENCE LIMIT (URL) OF TROPONIN, DEFINED THE 99TH PERCENTILE OF cTnI DISTRIBUTION IN A REFERENCE POPULATION, HAS BEEN CONFIRMED THE DECISION THRESHOLD FOR PR DIAGNOSIS. Performed By: #### B 12FOL, VITAD, IRON #### [facility] [address] [address] [address] Ekta Funk EVELYN 57 ng/mL Normal 9-82 [facility] Comment on above: Performed By: #### B 12FOL, VITAD, IRON #### [facility] [address] [address] [address] Ekta Funk CBC AUTO DIFFon 10-20-2022 BASO # 0.0 103/ul Normal 0.0-0.1 [facility] Comment on above: Performed By: #### C BC #### [facility] [address] [address] [address] Ekta Funk Basophils/100 WBC (Bld) 0.2 % Normal 0.2-2.0 [facility] Comment on above: Performed By: #### C BC #### [facility] [address] [place] [address] Dr. Ekta Funk EO # 0.2 103/ul Normal 0.0-0.7 [facility] Comment on above: Performed By: #### C BC #### [facility] [address] [place] [address] Dr. Ekta Funk Eosinophils/100 WBC (Bld) 1.4 % Normal 0.9-7.0 [facility] Comment on above: Performed By: #### C BC #### [facility] [address] [place] [address] Dr. Ekta Funk Erythrocyte distribution width (RBC) [Ratio] 12.9 % Normal 11.0-15.0 [facility] Comment on above: Performed By: #### C BC #### [facility] [address] [place] [address] Dr. Ekta Funk Hematocrit (Bld) [Volume fraction] 34.7 % Critically low 36.0-48.0 [facility] Comment on above: Performed By: #### C BC #### [facility] [address] [place] [address] Dr. Ekta Funk Hemoglobin (Bld) [Mass/Vol] 11.8 g/dL Critically low 12.0-16.0 [facility] Comment on above: Performed By: #### C BC #### [facility] [address] [place] [address] Dr. Ekta Funk IG # 0.09 10e3/ul Critically high 0.00-0.03 [facility] Comment on above: Performed By: #### C BC #### [facility] [address] [place] [address] Dr. Ekta Funk IG % 0.8 % Critically high 0.0-0.5 [facility] Comment on above: Performed By: #### C BC #### [facility] [address] [place] [address] Dr. Ekta Funk LYMPH # 1.9 103/ul Normal 1.2-3.8 [facility] Comment on above: Performed By: #### C BC #### [facility] [address] [place] [address] Dr. Ekta Funk Lymphocytes/100 WBC (Bld) 16.1 % Critically low 20.5-60.0 [facility] Comment on above: Performed By: #### C BC #### [facility] [address] [place] [address] Dr. Ekta Funk MANUAL DIFF REQ NO Normal [facility] Comment on above: Performed By: #### C BC #### [facility] [address] [place] [address] Dr. Ekta Funk MCH (RBC) [Entitic mass] 32.6 pg Normal 26.7-34.0 [facility] Comment on above: Performed By: #### C BC #### [facility] [address] [place] [address] Dr. Ekta Funk MCHC (RBC) [Mass/Vol] 34.0 g/dL Normal 29.9-35.2 [facility] Comment on above: Performed By: #### C BC #### [facility] [address] [place] [address] Dr. Ekta Funk MCV (RBC) [Entitic vol] 95.9 fL Normal 81.0-99.0 [facility] Comment on above: Performed By: #### C BC #### [facility] [address] [place] [address] Dr. Ekta Funk MONO # 0.8 103/ul Normal 0.3-0.8 [facility] Comment on above: Performed By: #### C BC #### [facility] [address] [place] [address] Dr. Ekta Funk Monocytes/100 WBC (Bld) 7.0 % Normal 1.7-12.0 [facility] Comment on above: Performed By: #### C BC #### [facility] [address] [place] [address] Dr. Ekta Funk NEUT # 8.8 103/ul Critically high 1.4-6.5 [facility] Comment on above: Performed By: #### C BC #### [facility] [address] [address] [address] Ekta Funk Neutrophils/100 WBC (Bld) 74.5 % Normal 43.0-75.0 [facility] Comment on above: Performed By: #### C BC #### [facility] [address] [place] [address] Dr. Ekta Funk Platelet mean volume (Bld) [Entitic vol] 9.8 fL Normal 9.5-13.5 [facility] Comment on above: Performed By: #### C BC #### [facility] [address] [place] [address] Dr. Ekta Funk PLT 203 103/ul Normal 150-450 [facility] Comment on above: Performed By: #### C BC #### [facility] [address] [place] [address] Dr. Ekta Funk RBC 3.62 106/ul Critically low 4.20-5.40 [facility] Comment on above: Performed By: #### C BC #### [facility] [address] [place] [address] Dr. Ekta Funk WBC 11.8 103/ul Critically high 4.0-11.0 [facility] Comment on above: Performed By: #### C BC #### [facility] [address] [place] [address] Dr. Ekta Funk CULTURE URINEon 10-20-2022 CULTURE URINE Culture Observations : NO GROWTH. Normal [facility] Comment on above: Performed By: #### I NSULIN #### [facility] [address] [place] [address] Dr. Ekta Funk [facility]11 SARS-CoV-2 (COVID-19) RNA GANESH+probe Ql (Unsp spec) Not detected Normal NOT DETECTED [facility] Comment on above: Result Comment: When diagnostic testing is negative, the possibility of a false negative should be considered in the context of a patient's recent exposures and the presence of clinical signs and symptoms consistent with SARS-CoV-2. This test is not yet approved or cleared by the [place] FDA. When there are no FDA-approved or cleared tests available, and other criteria are met, FDA can make tests available under an emergency access mechanism called an Emergency Use Authorization (EUA). The EUA for this test is supported by the Communication Specialist of Health and Human Service's declaration that circumstances exist to justify the emergency use of in vitro diagnostics for the detection and/or diagnosis of the virus that causes COVID-19. This EUA will remain in effect for the duration of the COVID-19 declaration justifying emergency of IVDs, unless it is terminated or revoked by the FDA (after which the test may no longer be used). Performed By: #### B 12FOL, VITCAMI, AURELIA #### [facility] [address] [place] [address] Dr. Ekta Funk ECHOCARDIO M/2D COMPLETEon 0 10-20-2022 ECHOCARDIO M/2D COMPLETE Patient: SHEILA MAC Exam Date: 10/20/2022 : 1950 Gender:F Ordering : DR KRZYSZTOF HARP . Admission #: [id number] Family : Order #: [id number] CLICK HERE TO VIEW EXAM ECHOCARDIOGRAM REPORT PROCEDURE: CARDIO PULMONARY ECHOCARDIO M/2D COMP INDICATIONS: Shortness of breath, edema, hypertension COMPARISON: None. DESCRIPTION: COMPLETE ECHOCARDIOGRAM Real-time transthoracic echocardiography with 2D, M-mode, spectral and color flow Doppler performed. QUALITY: Technical quality was good. 63 155# BP 164/104 LEFT VENTRICLE: Normal chamber size. Thickened septal wall. LV EF: Global left ventricular systolic function is normal; visually estimated ejection fraction is 55 to 60%. No obvious wall motion abnormalities. DIASTOLIC: Diastolic function is indeterminate. ATRIAL SEPTUM: Visually appears intact. LEFT ATRIUM: Normal chamber size. RIGHT ATRIUM: Normal chamber size. RIGHT VENTRICLE: Normal chamber size. Normal right ventricular systolic function. TRICUSPID VALVE: Normal mobility and thickness. Mild tricuspid regurgitation. Doppler studies reveal mildly (35-45) elevated right sided pressures. RVSP 36 mmHg MITRAL VALVE: Normal mobility and thickness. No evidence of mitral valve stenosis. There is no mitral annular calcification. Trivial mitral regurgitation. AORTIC VALVE: Normal trileaflet appearance. No visible sclerosis. Normal leaflet mobility. No evidence of aortic valve stenosis. Trivial aortic regurgitation. AORTIC ROOT: Normal diameter and appearance. Mildly enlarged ascending aorta (3.4 cm) PULMONIC VALVE: Normal thickness and mobility. No stenosis. Trivial regurgitation. PERICARDIUM: Anterior free space; trivial effusion versus fat pad. IVC: Collapses with inspirations. CONCLUSION: Global left ventricular systolic function is normal; visually estimated ejection fraction is 55 to 60%. No significant wall motion abnormalities. Diastolic function is indeterminate. The right ventricle is normal in size and systolic function. Mild tricuspid regurgitation. Mildly elevated right-sided pressures. Mildly enlarged ascending aorta. Anterior free space; trivial effusion versus fat pad. Adult Echocardiography Procedure Report Left Ventricle LVEDD (3.7 - 5.6 cm): 4.27 cm LVESD (2.2 - 4.0 cm): 3.15 cm LVIVS thickness (0.6 - 1.2 cm): 1.52 cm LVPW thickness (0.5 - 1.0 cm): 0.68 cm e': 0.06 m/s E - e': 8.41 LVOT Max Gradient: 2.21 mm[Hg] Peak Velocity (LVOT): 0.74 m/s LVOT Diameter 2.41 cm Left Atrium LA Volume Index (2D A2C): 44.03 ml, 44.03 ml Left Atrium Systolic Dimension: 3.05 cm Mitral Valve MV E to A Ratio: 0.51 Mitral Valve A-Wave Peak Velocity: 0.91 m/s Mitral Valve E-Wave Peak Velocity: 0.47 m/s Right Ventricle Aorta AO Root Diam: 3.44 cm Aortic Valve AoV Area (Peak Chris): 3.16 cm2, 3.16 cm2 Peak Velocity(Antegrade Flow): 1.07 m/s Peak Gradient(Antegrade Flow): 4.59 mm[Hg] Tricuspid Valve Peak Velocity (Regurgitant Flow): 2.68 m/s, 2.46 m/s, 2.86 m/s Peak Velocity: 0.33 m/s Pulmonic Valve Peak Velocity: 0.77 m/s, 0.76 m/s Peak Gradient: 2.39 mm[Hg], 2.29 mm[Hg] Right Atrium Right Atrium Systolic Pressure: 34.67 ml, 34.67 ml Dictated by: Sylwia Mckay M.D. on 10/20/2022 at 14:52 Approved by: Sylwia Mckay M.D. on 10/20/2022 at 14:57 Normal [facility] PROF 14(COMP METB)on 023 Albumin [Mass/Vol] 2.8 g/dL Critically low 3.4-5.0 [facility] Comment on above: Performed By: #### B 12FOL, VITAD, IRON #### [facility] [address] [place] [address] Dr. Ekta Funk Albumin/Globulin [Mass ratio] 0.7 {ratio} Normal [facility] Comment on above: Performed By: #### B 12FOL, VITAD, IRON #### [facility] [address] [place] [address] Dr. Ekta Funk ALP [Catalytic activity/Vol] 84 U/L Normal 46-116 [facility] Comment on above: Performed By: #### B 12FOL, VITAD, IRON #### [facility] [address] [place] [address] Dr. Ekta Funk ALT [Catalytic activity/Vol] 29 U/L Normal 14-59 [facility] Comment on above: Performed By: #### B 12FOL, VITAD, IRON #### [facility] [address] [place] [address] Dr. Ekta Funk Anion gap [Moles/Vol] 15.9 mmol/L Normal [facility] Comment on above: Performed By: #### B 12FOL, VITAD, IRON #### [facility] [address] [place] [address] Dr. Ekta Funk AST [Catalytic activity/Vol] 15 U/L Normal 15-37 [facility] Comment on above: Performed By: #### B 12FOL, VITAD, IRON #### [facility] [address] [place] [address] Dr. Ekta Funk Bilirubin [Mass/Vol] 0.3 mg/dL Normal 0.2-1.0 [facility] Comment on above: Performed By: #### B 12FOL, VITAD, IRON #### [facility] [address] [place] [address] Dr. Ekta Funk Calcium [Mass/Vol] 8.9 mg/dL Normal 8.5-10.1 [facility] Comment on above: Performed By: #### B 12FOL, VITAD, IRON #### [facility] [address] [address] [address] Ekta Funk Chloride [Moles/Vol] 103 mmol/L Normal 98-107 [facility] Comment on above: Performed By: #### B 12FOL, VITAD, IRON #### [facility] [address] [address] [address] Ekta Funk CO2 [Moles/Vol] 26.3 mmol/L Normal 21.0-32.0 [facility] Comment on above: Performed By: #### B 12FOL, VITAD, IRON #### [facility] [address] [place] [address] Dr. Ekta Funk Creatinine [Mass/Vol] 1.99 mg/dL Critically high 0.55-1.02 [facility] Comment on above: Performed By: #### B 12FOL, VITAD, IRON #### [facility] [address] [address] [address] Ekta Funk EGFR-AF SURINAMESE 30 mL/min/1.73m2 Critically low >=60 [facility] Comment on above: Performed By: #### B 12FOL, VITAD, IRON #### [facility] [address] [address] [address] Ekta Funk EGFR-NON AF SURINAMESE 24 mL/min/1.73m2 Critically low >=60 [facility] Comment on above: Performed By: #### B 12FOL, VITAD, IRON #### [facility] [address] [address] [address] Ekta Funk Globulin (S) [Mass/Vol] 4.1 g/dL Normal [facility] Comment on above: Performed By: #### B 12FOL, VITAD, IRON #### [facility] [address] [address] [address] Ekta Funk Glucose [Mass/Vol] 115 mg/dL Critically high 74-106 [facility] Comment on above: Performed By: #### B 12FOL, VITAD, IRON #### [facility] [address] [place] [address] Dr. Ekta Funk Potassium [Moles/Vol] 5.2 mmol/L Critically high 3.5-5.1 [facility] Comment on above: Performed By: #### B 12FOL, VITAD, IRON #### [facility] [address] [place] [address] Dr. Ekta Funk Protein [Mass/Vol] 6.9 g/dL Normal 6.4-8.2 [facility] Comment on above: Performed By: #### B 12FOL, VITAD, IRON #### [facility] [address] [place] [address] Dr. Ekta Funk Sodium [Moles/Vol] 140 mmol/L Normal 136-145 [facility] Comment on above: Performed By: #### B 12FOL, VITAD, IRON #### [facility] [address] [place] [address] Dr. Ekta Funk Urea nitrogen [Mass/Vol] 45.0 mg/dL Critically high 7.0-18.0 [facility] Comment on above: Performed By: #### B 12FOL, VITAD, IRON #### [facility] [address] [place] [address] Dr. Ekta Funk Urea nitrogen/Creatinine [Mass ratio] 22.6 mg/mg Normal [facility] Comment on above: Performed By: #### B 12FOL, VITAD, IRON #### [facility] [address] [place] [address] Dr. Ekta Fukn T4on 10-20-2022 T4 [Mass/Vol] 6.10 ug/dL Normal 4.80-13.90 [facility] Comment on above: Performed By: #### B 12FOL, VITAD, IRON #### [facility] [address] [place] [address] Dr. Ekta Funk TSHon 10-20-2022 TSH 1.336 uIU/mL Normal 0.358-3.740 [facility] Comment on above: Performed By: #### B 12FOL, VITAD, IRON #### [facility] [address] [place] [address] Dr. Ekta Funk UA RANDOM W/MICROSCOPICon BACTERIA TRACE Abnormal NONE SEEN [facility] Comment on above: Performed By: #### B 12FOL, VITAD, IRON #### [facility] [address] [place] [address] Dr. Ekta Funk Bilirubin Ql (U) Negative Normal NEGATIVE [facility] Comment on above: Performed By: #### B 12FOL, VITAD, IRON #### [facility] [address] [place] [address] Dr. Ekta Funk CAST NONE SEEN Normal NONE SEEN [facility] Comment on above: Performed By: #### B 12FOL, VITAD, IRON #### [facility] [address] [place] [address] Dr. Ekta Funk Clarity (U) CLEAR Normal CLEAR [facility] Comment on above: Performed By: #### B 12FOL, VITAD, IRON #### [facility] [address] [place] [address] Dr. Ekta Funk Color (U) LT. YELLOW Normal YELLOW [facility] Comment on above: Performed By: #### B 12FOL, VITAD, IRON #### [facility] [address] [place] [address] Dr. Ekta Funk Crystals LM Nom (Urine sed) NONE SEEN Normal NONE SEEN [facility] Comment on above: Performed By: #### B 12FOL, VITAD, IRON #### [facility] [address] [place] [address] Dr. Ekta Funk Epithelial cells LM Ql (Urine sed) RARE Normal NONE SEEN /RARE [facility] Comment on above: Performed By: #### B 12FOL, VITAD, IRON #### [facility] [address] [place] [address] Dr. Etka Funk Glucose Ql (U) Negative Normal NEGATIVE [facility] Comment on above: Performed By: #### B 12FOL, VITAD, IRON #### [facility] [address] [place] [address] Dr. Ekta Funk Hemoglobin Ql (U) Negative Normal NEGATIVE [facility] Comment on above: Performed By: #### B 12FOL, VITAD, IRON #### [facility] [address] [place] [address] Dr. Ekta Funk Ketones Ql (U) Negative Normal NEGATIVE [facility] Comment on above: Performed By: #### B 12FOL, VITAD, IRON #### [facility] [address] [place] [address] Dr. Ekta Funk LEUKOCYTES Negative Normal NEGATIVE [facility] Comment on above: Performed By: #### B 12FOL, VITAD, IRON #### [facility] [address] [place] [address] Dr. Ekta Funk MUCOUS NONE SEEN Normal NONE SEEN [facility] Comment on above: Performed By: #### B 12FOL, VITAD, IRON #### [facility] [address] [place] [address] Dr. Ekta Funk Nitrite Ql (U) Negative Normal NEGATIVE [facility] Comment on above: Performed By: #### B 12FOL, VITAD, IRON #### [facility] [address] [place] [address] Dr. Ekta Funk pH (U) 6.0 [pH] Normal 5-9 [facility] Comment on above: Performed By: #### B 12FOL, VITAD, IRON #### [facility] [address] [place] [address] Dr. Ekta Funk RBC 0-2 Normal 0-2 [facility] Comment on above: Performed By: #### B 12FOL, VITAD, IRON #### [facility] [address] [place] [address] Dr. Ekta Funk SPEC GRAVITY <=1.005 Abnormal 1.005-<=1.025 [facility] Comment on above: Performed By: #### B 12FOL, VITAD, IRON #### [facility] [address] [address] [address] Ekta Funk UA PROTEIN Negative Normal NEGATIVE/ TRACE [facility] Comment on above: Performed By: #### B 12FOL, VITAD, IRON #### [facility] [address] [place] [address] Dr. Ekta Funk Urobilinogen Qn (U) 0.2 {Ivan'U}/dL Normal 0.2 - 1. 0 [facility] Comment on above: Performed By: #### B 12FOL, VITAD, IRON #### [facility] [address] [place] [address] Dr. Ekta Funk WBC NONE SEEN Normal NONE SEEN [facility] Comment on above: Performed By: #### B 12FOL, VITAD, IRON #### [facility] [address] [place] [address] Dr. Ekta Funk BNPon 10-19-2022 Natriuretic peptide B (Bld) [Mass/Vol] 1355.0 pg/mL Critically high <=900.0 [facility] Comment on above: Performed By: #### B 12FOL, VITAD, IRON #### [facility] [address] [place] [address] Dr. Ekta Funk INSULINon 10-19-2022 Insulin 12.4 uIU/mL Normal 2.6-24.9 [facility] Comment on above: Performed By: #### I NSULIN #### [facility] [address] [place] [address] Dr. Ekta Funk OCC BLD IMMUNO SCREENon OCCULT BLOOD Positive Abnormal NEGATIVE [facility] Comment on above: Performed By: #### B 12FOL, VITAD, IRON #### [facility] [address] [place] [address] Dr. Ekta Funk PROF CHEM 8 (BAS METB)on Anion gap [Moles/Vol] 15.8 mmol/L Normal [facility] Comment on above: Performed By: #### B 12FOL, VITAD, IRON #### [facility] [address] [place] [address] Dr. Ekta Funk Calcium [Mass/Vol] 8.8 mg/dL Normal 8.5-10.1 [facility] Comment on above: Performed By: #### B 12FOL, VITAD, IRON #### [facility] [address] [address] [address] Ekta Funk Chloride [Moles/Vol] 107 mmol/L Normal 98-107 [facility] Comment on above: Performed By: #### B 12FOL, VITAD, IRON #### [facility] [address] [address] [address] Ekta Funk CO2 [Moles/Vol] 21.5 mmol/L Normal 21.0-32.0 [facility] Comment on above: Performed By: #### B 12FOL, VITAD, IRON #### [facility] [address] [address] [address] Ekta Funk Creatinine [Mass/Vol] 1.62 mg/dL Critically high 0.55-1.02 [facility] Comment on above: Performed By: #### B 12FOL, VITAD, IRON #### [facility] [address] [address] [address] Ekta Funk EGFR-AF SURINAMESE 38 mL/min/1.73m2 Critically low >=60 [facility] Comment on above: Performed By: #### B 12FOL, VITAD, IRON #### [facility] [address] [address] [address] Ekta Funk EGFR-NON AF SURINAMESE 31 mL/min/1.73m2 Critically low >=60 [facility] Comment on above: Performed By: #### B 12FOL, VITAD, IRON #### [facility] [address] [address] [address] Ekta Funk Glucose [Mass/Vol] 134 mg/dL Critically high 74-106 [facility] Comment on above: Performed By: #### B 12FOL, VITAD, IRON #### [facility] [address] [address] [address] Ekta Funk Potassium [Moles/Vol] 5.3 mmol/L Critically high 3.5-5.1 [facility] Comment on above: Performed By: #### B 12FOL, VITAD, IRON #### [facility] [address] [place] [address] Dr. Ekta Funk Sodium [Moles/Vol] 139 mmol/L Normal 136-145 [facility] Comment on above: Performed By: #### B 12FOL, VITAD, IRON #### [facility] [address] [place] [address] Dr. Ekta Funk Urea nitrogen [Mass/Vol] 37.0 mg/dL Critically high 7.0-18.0 [facility] Comment on above: Performed By: #### B 12FOL, VITAD, IRON #### [facility] [address] [place] [address] Dr. Ekta Funk Urea nitrogen/Creatinine [Mass ratio] 22.8 mg/mg Normal [facility] Comment on above: Performed By: #### B 12FOL, VITAD, IRON #### [facility] [address] [place] [address] Dr. Ekta Funk TROPONIN, HIGH SENSITIVITYon 10-19-2022 HSTROP 53.2 pg/mL Critically high 4.0-51.3 [facility] Comment on above: Result Comment: CUT- OFF POINTS HAVE BEEN ESTABLISHED BASED ON THE FOURTH UNIVERSAL DEFINITIONS OF MYOCARDIAL INFARCTION. THE UPPER REFERENCE LIMIT (URL) OF TROPONIN, DEFINED THE 99TH PERCENTILE OF cTnI DISTRIBUTION IN A REFERENCE POPULATION, HAS BEEN CONFIRMED THE DECISION THRESHOLD FOR PR DIAGNOSIS. Performed By: #### B 12FOL, VITAD, IRON #### [facility] [address] [place] [address] Dr. Ekta Funk BNPon 10-18-2022 Natriuretic peptide B (Bld) [Mass/Vol] 1386.0 pg/mL Critically high <=900.0 [facility] Comment on above: Performed By: #### C VDTBH #### [facility] [address] [place] [address] Dr. Ekta Funk CARDIAC BRITTANIE ADMITon 023 CK [Catalytic activity/Vol] 34 U/L Normal 26-192 [facility] Comment on above: Performed By: #### C VDTBH #### [facility] [address] [address] [address] Ekta Funk CK.MB [Mass/Vol] 1.43 ng/mL Normal <=3.60 [facility] Comment on above: Performed By: #### C VDTBH #### [facility] [address] [address] [address] Ekta Funk HSTROP 74.1 pg/mL Critically high 4.0-51.3 [facility] Comment on above: Result Comment: CUT- OFF POINTS HAVE BEEN ESTABLISHED BASED ON THE FOURTH UNIVERSAL DEFINITIONS OF MYOCARDIAL INFARCTION. THE UPPER REFERENCE LIMIT (URL) OF TROPONIN, DEFINED THE 99TH PERCENTILE OF cTnI DISTRIBUTION IN A REFERENCE POPULATION, HAS BEEN CONFIRMED THE DECISION THRESHOLD FOR PR DIAGNOSIS. Performed By: #### C VDTBH #### [facility] [address] [place] [address] Dr. Ekta Funk EVELYN 52 ng/mL Normal 9-82 [facility] Comment on above: Performed By: #### C VDTBH #### [facility] [address] [place] [address] Dr. Ekta Funk CBC AUTO DIFFon 10-18-2022 BASO # 0.0 103/ul Normal 0.0-0.1 [facility] Comment on above: Performed By: #### C BC #### [facility] [address] [place] [address] Dr. Ekta Funk Basophils/100 WBC (Bld) 0.3 % Normal 0.2-2.0 [facility] Comment on above: Performed By: #### C BC #### [facility] [address] [place] [address] Dr. Ekta Funk EO # 0.1 103/ul Normal 0.0-0.7 [facility] Comment on above: Performed By: #### C BC #### [facility] [address] [place] [address] Dr. Ekta Funk Eosinophils/100 WBC (Bld) 0.9 % Normal 0.9-7.0 [facility] Comment on above: Performed By: #### C BC #### [facility] [address] [place] [address] Dr. Ekta Funk Erythrocyte distribution width (RBC) [Ratio] 13.2 % Normal 11.0-15.0 [facility] Comment on above: Performed By: #### C BC #### [facility] [address] [place] [address] Dr. Ekta Funk Hematocrit (Bld) [Volume fraction] 38.9 % Normal 36.0-48.0 [facility] Comment on above: Performed By: #### C BC #### [facility] [address] [place] [address] Dr. Ekta Funk Hemoglobin (Bld) [Mass/Vol] 12.4 g/dL Normal 12.0-16.0 [facility] Comment on above: Performed By: #### C BC #### [facility] [address] [place] [address] Dr. Ekta Funk IG # 0.08 10e3/ul Critically high 0.00-0.03 [facility] Comment on above: Performed By: #### C BC #### [facility] [address] [place] [address] Dr. Ekta Funk IG % 0.5 % Normal 0.0-0.5 [facility] Comment on above: Performed By: #### C BC #### [facility] [address] [place] [address] Dr. Ekta Funk LYMPH # 1.4 103/ul Normal 1.2-3.8 [facility] Comment on above: Performed By: #### C BC #### [facility] [address] [place] [address] Dr. Ekta Funk Lymphocytes/100 WBC (Bld) 9.6 % Critically low 20.5-60.0 [facility] Comment on above: Performed By: #### C BC #### [facility] [address] [place] [address] Dr. Ekta Funk MANUAL DIFF REQ NO Normal [facility] Comment on above: Performed By: #### C BC #### [facility] [address] [address] [address] Ekta Funk MCH (RBC) [Entitic mass] 32.3 pg Normal 26.7-34.0 [facility] Comment on above: Performed By: #### C BC #### [facility] [address] [address] [address] Ekta Funk MCHC (RBC) [Mass/Vol] 31.9 g/dL Normal 29.9-35.2 [facility] Comment on above: Performed By: #### C BC #### [facility] [address] [address] [address] Ekta Funk MCV (RBC) [Entitic vol] 101.3 fL Critically high 81.0-99.0 [facility] Comment on above: Performed By: #### C BC #### [facility] [address] [place] [address] Dr. Ekta Funk MONO # 0.9 103/ul Critically high 0.3-0.8 [facility] Comment on above: Performed By: #### C BC #### [facility] [address] [address] [address] Ekta Funk Monocytes/100 WBC (Bld) 6.3 % Normal 1.7-12.0 [facility] Comment on above: Performed By: #### C BC #### [facility] [address] [place] [address] Dr. Ekta Funk NEUT # 12.0 103/ul Critically high 1.4-6.5 [facility] Comment on above: Performed By: #### C BC #### [facility] [address] [place] [address] Dr. Ekta Funk Neutrophils/100 WBC (Bld) 82.4 % Critically high 43.0-75.0 [facility] Comment on above: Performed By: #### C BC #### [facility] [address] [place] [address] Dr. Ekta Funk Platelet mean volume (Bld) [Entitic vol] 9.7 fL Normal 9.5-13.5 [facility] Comment on above: Performed By: #### C BC #### [facility] [address] [address] [address] Ekta Funk PLT 176 103/ul Normal 150-450 [facility] Comment on above: Performed By: #### C BC #### [facility] [address] [address] [address] Ekta Funk RBC 3.84 106/ul Critically low 4.20-5.40 [facility] Comment on above: Performed By: #### C BC #### [facility] [address] [address] [address] Ekta Funk WBC 14.6 103/ul Critically high 4.0-11.0 [facility] Comment on above: Performed By: #### C BC #### [facility] [address] [place] [address] Dr. Ekta Funk FREE THYROXINE INDEX T7on FTI 2.34 Normal 1.30-4.50 [facility] Comment on above: Performed By: #### C VDTBH #### [facility] [address] [place] [address] Dr. Ekta Funk T3U 36.0 % Normal 30.0-39.0 [facility] Comment on above: Performed By: #### C VDTBH #### [facility] [address] [place] [address] Dr. Ekta Funk T4 [Mass/Vol] 6.50 ug/dL Normal 4.80-13.90 [facility] Comment on above: Performed By: #### C VDTBH #### [facility] [address] [place] [address] Dr. Ekta Funk GLYCOHEMOGLOBIN A1Con 2022 ADA RECOMMENDATION SEE BELOW Normal [facility] Comment on above: Result Comment: ADA RECOMMENDED LIMIT 4.0 - 6.0 ADA THERAPEUTIC TARGET < 7.0 ACTION SUGGESTED > 7.0 Performed By: #### B 12FOL, VITAD, IRON #### [facility] [address] [place] [address] Dr. Ekta Funk Glucose [Mass/Vol] 140 mg/dL Normal [facility] Comment on above: Performed By: #### B 12FOL, VITAD, IRON #### [facility] [address] [address] [address] Ekta Funk HbA1c (Bld) [Mass fraction] 6.5 % Critically high 4.5-6.2 [facility] Comment on above: Performed By: #### B 12FOL, VITAD, IRON #### [facility] [address] [address] [address] Ekta Funk IRONon 10-18-2022 Iron [Mass/Vol] 62.0 ug/dL Normal 50.0-170.0 [facility] Comment on above: Performed By: #### B 12FOL, VITAD, IRON #### [facility] [address] [place] [address] Dr. Ekta Funk LIPID PROFILEon 10-18-2022 CHOL-HDL RATIO NORM SEE BELOW Normal [facility] Comment on above: Result Comment: 3.3 - 4.4 LOW RISK 4.4 - 7.1 AVERAGE RISK 7.1 - 11.0 MODERATE RISK >11.0 HIGH RISK Performed By: #### C VDTBH #### [facility] [address] [place] [address] Dr. Ekta Funk Cholesterol [Mass/Vol] 242 mg/dL Critically high <=200 [facility] Comment on above: Performed By: #### C VDTBH #### [facility] [address] [address] [address] Ekta Funk Cholesterol in HDL [Mass/Vol] 74 mg/dL Critically high 40-60 [facility] Comment on above: Performed By: #### C VDTBH #### [facility] [address] [address] [address] Ekta Funk Cholesterol in LDL [Mass/Vol] 139.4 mg/dL Normal [facility] Comment on above: Performed By: #### C VDTBH #### [facility] [address] [place] [address] Dr. Ekta Funk Cholesterol.total/Ch olesterol in HDL [Mass ratio] 3.3 {ratio} Normal [facility] Comment on above: Performed By: #### C VDTBH #### [facility] [address] [address] [address] Ekta Funk HDL NORMAL > or = 60 mg/dl - LO W CARDIOVASCULAR RISK <40 mg/dl - HIGH CARDIOVASCULAR RISK Normal [facility] Comment on above: Performed By: #### C VDTBH #### [facility] [address] [address] [address] Ekta Funk LDL CALC NORMAL SEE BELOW Normal [facility] Comment on above: Result Comment: <100 mg/dl OPTIMAL 100 - 129 mg/dl NEAR OR ABOVE OPTIMAL 130 - 159 mg/dl BORDERLINE HIGH 160 - 189 mg/dl HIGH >190 mg/dl VERY HIGH Performed By: #### C VDTBH #### [facility] [address] [place] [address] Dr. Ekta Funk Triglyceride [Mass/Vol] 143 mg/dL Normal <=150 [facility] Comment on above: Performed By: #### C VDTBH #### [facility] [address] [address] [address] Ekta Funk VLDL CALC 28.6 mg/dL Normal [facility] Comment on above: Performed By: #### C VDTBH #### [facility] [address] [place] [address] Dr. Ekta Funk PROF 14(COMP METB)on 023 Albumin [Mass/Vol] 2.8 g/dL Critically low 3.4-5.0 [facility] Comment on above: Performed By: #### C VDTBH #### [facility] [address] [address] [address] Ekta Funk Albumin/Globulin [Mass ratio] 0.7 {ratio} Normal [facility] Comment on above: Performed By: #### C VDTBH #### [facility] [address] [address] [address] Ekta Funk ALP [Catalytic activity/Vol] 90 U/L Normal 46-116 [facility] Comment on above: Performed By: #### C VDTBH #### [facility] [address] [address] [address] Ekta Funk ALT [Catalytic activity/Vol] 26 U/L Normal 14-59 [facility] Comment on above: Performed By: #### C VDTBH #### [facility] [address] [address] [address] Ekta Funk Anion gap [Moles/Vol] 14.5 mmol/L Normal [facility] Comment on above: Performed By: #### C VDTBH #### [facility] [address] [address] [address] Ekta Funk AST [Catalytic activity/Vol] 14 U/L Critically low 15-37 [facility] Comment on above: Performed By: #### C VDTBH #### [facility] [address] [place] [address] Dr. Ekta Funk Bilirubin [Mass/Vol] 0.4 mg/dL Normal 0.2-1.0 [facility] Comment on above: Performed By: #### C VDTBH #### [facility] [address] [place] [address] Dr. Ekta Funk Calcium [Mass/Vol] 8.9 mg/dL Normal 8.5-10.1 [facility] Comment on above: Performed By: #### C VDTBH #### [facility] [address] [place] [address] Dr. Ekta Funk Chloride [Moles/Vol] 106 mmol/L Normal 98-107 [facility] Comment on above: Performed By: #### C VDTBH #### [facility] [address] [address] [address] Ekta Funk CO2 [Moles/Vol] 23.5 mmol/L Normal 21.0-32.0 [facility] Comment on above: Performed By: #### C VDTBH #### [facility] [address] [place] [address] Dr. Ekta Funk Creatinine [Mass/Vol] 1.70 mg/dL Critically high 0.55-1.02 [facility] Comment on above: Performed By: #### C VDTBH #### [facility] [address] [address] [address] Ekta Funk EGFR-AF SURINAMESE 36 mL/min/1.73m2 Critically low >=60 [facility] Comment on above: Performed By: #### C VDTBH #### [facility] [address] [address] [address] Ekta Funk EGFR-NON AF SURINAMESE 29 mL/min/1.73m2 Critically low >=60 [facility] Comment on above: Performed By: #### C VDTBH #### [facility] [address] [address] [address] Ekta Funk Globulin (S) [Mass/Vol] 4.0 g/dL Normal [facility] Comment on above: Performed By: #### C VDTBH #### [facility] [address] [address] [address] Ekta Funk Glucose [Mass/Vol] 99 mg/dL Normal 74-106 [facility] Comment on above: Performed By: #### C VDTBH #### [facility] [address] [address] [address] Ekta Funk Potassium [Moles/Vol] 5.0 mmol/L Normal 3.5-5.1 [facility] Comment on above: Performed By: #### C VDTBH #### [facility] [address] [address] [address] Ekta Funk Protein [Mass/Vol] 6.8 g/dL Normal 6.4-8.2 The [facility] Comment on above: Performed By: #### C VDTBH #### [facility] [address] [address] [address] Ekta Funk Sodium [Moles/Vol] 139 mmol/L Normal 136-145 The [facility] Comment on above: Performed By: #### C VDTBH #### [facility] [address] [address] [address] Ekta Funk Urea nitrogen [Mass/Vol] 36.0 mg/dL Critically high 7.0-18.0 [facility] Comment on above: Performed By: #### C VDTBH #### [facility] [address] [address] [address] Ekta Funk Urea nitrogen/Creatinine [Mass ratio] 21.2 mg/mg Normal [facility] Comment on above: Performed By: #### C VDTBH #### [facility] [address] [address] [address] Ekta Funk TSHon 10-18-2022 TSH 0.910 uIU/mL Normal 0.358-3.740 [facility] Comment on above: Performed By: #### C VDTBH #### [facility] [address] [address] [address] Ekta Funk Covid-19 PCR ([facility])on 09-10 SARS-CoV-2 (COVID-19) RNA GANESH+probe Ql (Unsp spec) Detected Abnormal NOT DETECTED The [facility] Comment on above: Result Comment: This test is not yet approved or cleared by the [place] FDA. When there are no FDA-approved or cleared tests available, and other criteria are met, FDA can make tests available under an emergency access mechanism called an Emergency Use Authorization (EUA). The EUA for this test is supported by the [place] of Health and Human Service's declaration that circumstances exist to justify the emergency use of in vitro diagnostics for the detection and/or diagnosis of the virus that causes COVID-19. This EUA will remain in effect for the duration of the COVID-19 declaration justifying emergency of IVDs, unless it is terminated or revoked by the FDA (after which the test may no longer be used). Performed By: #### C MP #### [facility] [id number] Ekta Funk INFLUENZA A AND B AGon 09-25 INFLUANEGH SEE BELOW Normal [facility] Comment on above: Result Comment: Nega tive for Flu A protein angiten. Infection due to Flu A cannot be ruled out. Flu A angiten in the sample may be below the detection limit of the test. Performed By: #### B 12FOL, VITAD, IRON #### [facility] [address] [address] [address] Ekta Funk [facility] SEE BELOW Normal The [facility] Comment on above: Result Comment: Nega tive for Flu B protein antigen. Infection due to Flu B cannot be ruled out. Flu B antigen in the sample may be below the detection limit of the test. Performed By: #### B 12FOL, VITAD, IRON #### [facility] [address] [address] [address] Ekta Funk INFLUENZA A AG Negative Normal NEGATIVE SEE COMMENT The [facility] Comment on above: Performed By: #### B 12FOL, VITAD, IRON #### [facility] [address] [address] [address] Ekta Funk INFLUENZA B AG Negative Normal NEGATIVE SEE COMMENT The [facility] Comment on above: Performed By: #### B 12FOL, VITAD, IRON #### [facility] [address] [place] [address] Dr. Ekta Funk US CAROTID ART BILon 022 US CAROTID ART ANGELIQUE EXAMINATION: US CAROTID ART ANGELIQUE HISTORY: Dysarthria COMPARISON: No relevant comparison available. TECHNIQUE: Duplex Doppler ultrasound analysis of carotid and vertebral arteries. . Bilateral carotid arterial duplex examination was performed using B-mode, color flow and spectral analysis. Carotid stenosis is reported according to validated velocity parameters, similar to NASCET criteria. FINDINGS: RIGHT CAROTID ARTERY Mild to moderate atherosclerotic plaque. Maximum area of reduction 54% in the bulb Subclavian: PSV: 97.9 cm/s cm/s EDV: 4.2 cm/s cm/s CCA: Prox: PSV: 78.2 cm/s cm/s EDV: 18.8 cm/s cm/s Mid: PSV: 56.1 cm/s cm/s EDV: 15.1 cm/s cm/s Distal: PSV: 47.4 cm/s cm/s EDV: 15.1 cm/s cm/s BULB: PSV: 36.0 cm/s cm/s EDV: 16.0 cm/s cm/s ICA: Prox: PSV: 41.2 cm/s cm/s EDV: 16.0 cm/s cm/s Mid: PSV: 43.9 cm/s cm/s EDV: 13.3 cm/s cm/s Distal: PSV: 52.6 cm/s cm/s EDV: 21.2 cm/s cm/s ECA: PSV: 38.9 cm/s cm/s EDV: 4.0 cm/s cm/s VERTEBRAL: PSV: 32.8 cm/s cm/s EDV: 11.9 cm/s cm/s ICA/CCA ratio: PSV: 1.1 EDV: 1.4 LEFT CAROTID ARTERY Mild to moderate atherosclerotic plaque. Maximum area reduction 74% in the bulb Subclavian: PSV: 67.7 cm/s cm/s EDV: 4.9 cm/s CCA: Prox: PSV: 57.2 cm/s cm/s EDV: 18.0 cm/s Mid: PSV: 48.5 cm/s cm/s EDV: 18.0 cm/s Distal: PSV: 43.2 cm/s cm/s EDV: 14.5 cm/s BULB: PSV: 65.9 cm/s cm/s EDV: 19.7 cm/s ICA: Prox: PSV: 33.6 cm/s cm/s EDV: 17.1 cm/s Mid: PSV: 72.1 cm/s cm/s EDV: 30.3 cm/s Distal: PSV: 58.9 cm/s cm/s EDV: 23.7 cm/s ECA: PSV: 50.1 cm/s cm/s EDV: 6.2 cm/s VERTEBRAL: PSV: 61.1 cm/s cm/s EDV: 16.0 cm/s ICA/CCA ratio: PSV: 1.7 EDV: 2.1 IMPRESSION: 0-49% flow stenosis bilateral internal carotid arteries 54% right carotid bulb and 74% left carotid bulb area of stenosis Spectral Doppler US Thresholds (Reference: Willis EG, et al. Radiology 2000; 214:247-252) Stenosis (%) PSV (cm/sec) VICA/VCCA 0-49 <150 <2.5 50-69 150-225 2.5-4.0 >70 >225 >4.0 Electronically authenticated by: GODWIN BECK Date: 2022-05-26 16:[address] [facility] MRI BRAIN WO CONon MRI BRAIN WO CON EXAMINATION: MRI BRAIN WO CON, 05/25/2022 8:27 AM EDT HISTORY: Dysarthria , headaches COMPARISON: MRI brain 10/07/2018 TECHNIQUE: MRI of the brain was performed without IV contrast. FINDINGS: CEREBRUM: Numerous small and confluent areas of increased T2 signal within the periventricular and subcortical deep white matter favoring chronic small vessel ischemic changes. No edema, hemorrhage, mass, acute infarction, or inappropriate atrophy. CEREBELLUM: No edema, hemorrhage, mass, acute infarction, or inappropriate atrophy. BRAINSTEM: No edema, hemorrhage, mass, acute infarction, or inappropriate atrophy. CSF SPACES: Ventricles, cisterns, and sulci are appropriate for age. No hydrocephalus, subarachnoid hemorrhage, or mass. SKULL: No mass or other significant visible lesion. SINUSES: Limited views demonstrate no significant mucosal thickening or fluid. ORBITS: Limited views are unremarkable. OTHER: Negative. IMPRESSION: 1. No acute or suspicious findings to account for patient's symptoms. 2. Age consistent atrophy and chronic small vessel ischemic changes; not significantly changed since prior study. Electronically authenticated by: VISHNU MARIE Date: 2022-05-25 10:[address] [facility] ECHOCARDIO M/2D COMPLETEon 0 05-24-2022 ECHOCARDIO M/2D COMPLETE Patient: SHEILA MAC Exam Date: 05/24/2022 : 1950 Gender:F Ordering : DR KRZYSZTOF HARP . Admission #: [id number] Family : Order #: [id number] CLICK HERE TO VIEW EXAM ECHOCARDIOGRAM REPORT PROCEDURE: CARDIO PULMONARY ECHOCARDIO M/2D COMP INDICATIONS: Chest pain COMPARISON: None. DESCRIPTION: COMPLETE ECHOCARDIOGRAM Real-time transthoracic echocardiography with 2D, M-mode, spectral and color flow Doppler performed. QUALITY: Technical quality was good. 64 150# BP 162/104 LEFT VENTRICLE: Normal chamber size. Normal left ventricular wall thickness. Calculated left ventricular ejection fraction is 40%. LV EF: Global left ventricular systolic function is mildly reduced; visually estimated ejection fraction is 40 to 45%. Global hypokinesis. DIASTOLIC: Grade I diastolic dysfunction. ATRIAL SEPTUM: Visually appears intact. LEFT ATRIUM: Normal chamber size. RIGHT ATRIUM: Normal chamber size. RIGHT VENTRICLE: Normal chamber size. Normal right ventricular systolic function. TRICUSPID VALVE: Normal mobility and thickness. Moderate regurgitation. Doppler studies reveal mildly (35-45) elevated right sided pressures. RVSP 36 mmHg MITRAL VALVE: Normal mobility and thickness. No evidence of mitral valve stenosis. There is no mitral annular calcification. Trivial mitral regurgitation. AORTIC VALVE: Normal trileaflet appearance. No visible sclerosis. Normal leaflet mobility. No evidence of aortic valve stenosis. Trivial aortic regurgitation. AORTIC ROOT: Normal diameter and appearance. Mildly enlarged ascending aorta (3.6 cm). PULMONIC VALVE: Normal thickness and mobility. No stenosis. No regurgitation. PERICARDIUM: Anterior free space; trivial effusion versus fat pad. IVC: Collapses with inspirations. CONCLUSION: Global left ventricular systolic function is mildly reduced; visually estimated ejection fraction is 40 to 45%; global hypokinesis. Grade 1 diastolic dysfunction. The right ventricle is normal in size and systolic function. Moderate tricuspid regurgitation. Mildly elevated right-sided pressures. Mildly enlarged ascending aorta. Anterior free space; trivial effusion versus fat pad. Adult Echocardiography Procedure Report Left Ventricle LVEDD (3.7 - 5.6 cm): 4.54 cm LVESD (2.2 - 4.0 cm): 2.99 cm LVIVS thickness (0.6 - 1.2 cm): 0.93 cm LVPW thickness (0.5 - 1.0 cm): 0.87 cm e': 0.05 m/s LVOT Max Chris (1.5 m per sec): 0.74 m/s Left Atrium Mitral Valve MV E to A Ratio: 0.45 Right Ventricle Aorta AO Root Diam: 3.04 cm Ascending Ao Diam: 3.55 cm Aortic Valve Peak Velocity (Antegrade Flow): 1.15 m/s Tricuspid Valve TV Mean Gradient: 0.75 mm[Hg] Peak Velocity (Regurgitant Flow): 0.43 m/s Mean Velocity: 0.43 m/s Pulmonic Valve Right Atrium Dictated by: Sylwia Mckay M.D. on 05/24/2022 at 14:34 Approved by: Sylwia Mckay M.D. on 05/24/2022 at 14:45 Normal The [facility] BASIC METABOLIC PANELon 03- Calcium mass conc 9.4 mg/dL Normal 8.6-10.3 The [facility] Comment on above: Order Comment: No: D o not add to previous draw Performed By: #### 0 0071 #### [facility] [address] [place] [address], [place] Chloride molar conc 108 mmol/L High 98-107 The [facility] Comment on above: Order Comment: No: D o not add to previous draw Performed By: #### 0 0071 #### [facility] [address] [place] [address], [place] CO2 molar conc 22 mmol/L Normal 21-31 The [facility] Comment on above: Order Comment: No: D o not add to previous draw Performed By: #### 0 0071 #### [facility] [address] [place] [address], [place] Creatinine mass conc 1.18 mg/dL Normal 0.60-1.20 The [facility] Comment on above: Order Comment: No: D o not add to previous draw Performed By: #### 0 0071 #### [facility] [address] [place] [address], [place] GFR/1.73 sq M predicted among blacks MDRD vol rate/area (S/P/Bld) 55 ml/min/1.73sq m Abnormal >60 The [facility] Comment on above: Order Comment: No: D o not add to previous draw Performed By: #### 0 0071 #### [facility] [address] [place] [address], [place] GFR/1.73 sq M predicted among non-blacks MDRD vol rate/area (S/P/Bld) 45 ml/min/1.73sq m Abnormal >60 The [facility] Comment on above: Order Comment: No: D o not add to previous draw Performed By: #### 0 0071 #### [facility] [address] [place] [address], [place] Glucose mass conc 166 mg/dL High 70-100 The [facility] Comment on above: Order Comment: No: D o not add to previous draw Performed By: #### 0 0071 #### [facility] [address] [place] [address], [facility] Potassium molar conc 4.1 mmol/L Normal 3.5-5.1 The [facility] Comment on above: Order Comment: No: D o not add to previous draw Performed By: #### 0 0071 #### [facility] [address] [place] [address], [facility] Sodium molar conc 140 mmol/L Normal 136-145 The [facility] Comment on above: Order Comment: No: D o not add to previous draw Performed By: #### 0 0071 #### [facility] [address] [place] [address], [facility] Urea nitrogen mass conc 21 mg/dL Normal 7-25 The [facility] Comment on above: Order Comment: No: D o not add to previous draw Performed By: #### 0 0071 #### [facility] [address] [place], [place] [address] CBC COMPLETE BLOOD COUNTon 0 - Erythrocyte distribution width Ratio (RBC) 12.9 % Normal 11.5-15.0 [facility] Comment on above: Order Comment: No: D o not add to previous draw Performed By: #### 5 [id number] #### [facility] [address] [place] [id number], [facility] Hematocrit Volume Fraction (Bld) 36.7 % Normal 36.0-45.0 The [facility] Comment on above: Order Comment: No: D o not add to previous draw Performed By: #### 5 [id number] #### [facility] [address] [place] [address], [facility] Hemoglobin mass conc (Bld) 12.4 g/dL Normal 12.0-15.0 The [facility] Comment on above: Order Comment: No: D o not add to previous draw Performed By: #### 5 [id number] #### [facility] [address] [place] [address], [facility] MCH Entitic mass (RBC) 31.2 pg Normal 27.0-33.0 The [facility] Comment on above: Order Comment: No: D o not add to previous draw Performed By: #### 5 [id number] #### [facility] [address] [place] [address], [facility] MCHC mass conc (RBC) 33.8 g/dL Normal 32.0-35.0 The [facility] Comment on above: Order Comment: No: D o not add to previous draw Performed By: #### 5 [id number] #### [facility] [address] MCV Entitic volume (RBC) 92.4 fL Normal 82.0-98.0 The [facility] Comment on above: Order Comment: No: D o not add to previous draw Performed By: #### 5 [id number] #### [facility] [address] Nucleated RBC/100 WBC Ratio (Bld) 0 % Normal 0-0 The [facility] Comment on above: Order Comment: No: D o not add to previous draw Performed By: #### 5 [id number] #### [facility] [address] [place] [address], [facility] PLAT CNT 227 10*3/uL Normal 150-400 The [facility] Comment on above: Order Comment: No: D o not add to previous draw Performed By: #### 5 [id number] #### [facility] [address] [place] [address], [facility] RBC #/vol (Bld) 3.97 10*6/uL Normal 3.80-5.00 [facility] Comment on above: Order Comment: No: D o not add to previous draw Performed By: #### 5 [id number] #### [facility] [address] WBC #/vol (Bld) 5.55 10*3/uL Normal 4.00-10.60 [facility] Comment on above: Order Comment: No: D o not add to previous draw Performed By: #### 5 [id number] #### [facility] [address] Cardiovascular Lab Reporton 11-20-2018 Cardiovascular Lab Report [facility] Patient Name: [facility] MR #: [id number] Department of Physician: Bong Bolivar Shellie Gaspar M.D. Division of Service Date: 11/20/2018 Cardiology Birthdate: 1950 Adult Cardiovascular Room #: 3AB [id number] [facility] [address] [facility] [place] [address] Cardiovascular Laboratory Report INDICATION: The patient is a 68-year-old woman who was evaluated in Cardiology Clinic because of new onset symptoms of shortness of breath on mild exertion. Her stress test showed evidence of [id number] area of inferoapical ischemia; because of that, she was referred for cardiac catheterization. PROCEDURES: 1. Right heart catheterization. 2. Bilateral selective coronary angiography. 3. Limited right femoral angiography. METHOD: Procedure was explained patient with risks and benefits. She signed informed consent. She was brought to crime lab technician in a fasting state. The right groin area was prepped and draped in usual fashion. Using micropuncture technique, the right common femoral artery was accessed. The inner cannula was advanced. Limited femoral angiography was performed followed by upsizing to a 6-St Lucian x 11 cm sheath. Access was also obtained using the same technique in the right common femoral vein and a 6-St Lucian x 11 cm sheath was placed. A 6-St Lucian Michel catheter was used for right heart catheterization with measurement of pressures and calculation of cardiac output using the estimated Ivory method. Michel catheter was removed. Bilateral selective coronary angiography was then performed using 6-St Lucian JL4 and JR4 diagnostic catheters. Catheters were removed. Procedure was concluded. The access sheaths were removed and manual compression applied for hemostasis. She will be observed for 6 hours and then discharged to home. TOTAL FLUORO TIME: 3.51 minutes. TOTAL AIR KERMA: 159 mGy. TOTAL CONTRAST VOLUME: 30 mL. HEMODYNAMICS: RA 1, RV 30/2, 3, PA 28/11 mean 18, pulmonary wedge pressure 6, AO 164/98, mean 128, cardiac output 3.58, cardiac index 2.13, PA sat 63%, AO sat 100%. CORONARY ANGIOGRAPHY: This is a right dominant circulation. Left main arises from left coronary cusp. It bifurcates into left anterior descending and circumflex vessels. Left main is angiographically normal. Left anterior descending is angiographically normal. Circumflex vessel is angiographically normal. Right coronary artery. This arises from the right coronary cusp. This is a large and dominant vessel. It is angiographically normal. Limited femoral angiography. This showed access to be in the right common femoral artery with no obstructive lesions noted in the femoral artery or its proximal branches. SUMMARY OF FINDINGS: 1. Normal coronary angiogram. 2. Low filling pressures. 3. Normal pulmonary arterial pressures. 4. Reduced cardiac output and cardiac index. 5. Uncontrolled systemic hypertension. RECOMMENDATIONS: 1. Control of systemic hypertension. 2. The patient will be instructed to hydrate herself. 3. Follow up in Cardiology Clinic. Electronically Signed by: Bong Gaspar M.D. 11/24/2018 09:57 A Bong Gaspar M.D. Date Dict: 11/20/2018/09:00 Cyndy/Bong Gaspar M.D. Date Trans: 11/20/2018 09:31 Cyndy/alvina DN_[id number] cc: Krzysztof Harp M.D. [address] [facility] [id number] Normal The [facility] BASIC METABOLIC PANELon 11-08 Calcium mass conc 9.5 mg/dL Normal 8.6-10.3 The [facility] Comment on above: Order Comment: No: D o not add to previous draw Performed By: #### 0 0071 #### [facility] [address] [place] [address], [place] Chloride molar conc 105 mmol/L Normal 98-107 The [facility] Comment on above: Order Comment: No: D o not add to previous draw Performed By: #### 0 0071 #### [facility] [address] [place] [address], [place] CO2 molar conc 24 mmol/L Normal 21-31 The [facility] Comment on above: Order Comment: No: D o not add to previous draw Performed By: #### 0 0071 #### [facility] [address] [place] [address], [place] Creatinine mass conc 1.42 mg/dL High 0.60-1.20 [facility] Comment on above: Order Comment: No: D o not add to previous draw Performed By: #### 0 0071 #### [facility] [address] [place] [address], [place] GFR/1.73 sq M predicted among blacks MDRD vol rate/area (S/P/Bld) 45 ml/min/1.73sq m Abnormal >60 The [facility] Comment on above: Order Comment: No: D o not add to previous draw Performed By: #### 0 0071 #### [facility] [address] [place] [address], [place] GFR/1.73 sq M predicted among non-blacks MDRD vol rate/area (S/P/Bld) 36 ml/min/1.73sq m Abnormal >60 The [facility] Comment on above: Order Comment: No: D o not add to previous draw Performed By: #### 0 0071 #### [facility] [address] [place] [address], [place] Glucose mass conc 86 mg/dL Normal 70-100 The [facility] Comment on above: Order Comment: No: D o not add to previous draw Performed By: #### 0 0071 #### [facility] [address] [place] [address], [facility] Potassium molar conc 4.2 mmol/L Normal 3.5-5.1 The [facility] Comment on above: Order Comment: No: D o not add to previous draw Performed By: #### 0 0071 #### [facility] [address] [place] [address], [facility] Sodium molar conc 138 mmol/L Normal 136-145 [facility] Comment on above: Order Comment: No: D o not add to previous draw Performed By: #### 0 0071 #### [facility] [address] [place] [address], [facility] Urea nitrogen mass conc 19 mg/dL Normal 7-25 The [facility] Comment on above: Order Comment: No: D o not add to previous draw Performed By: #### 0 0071 #### [facility] [address] [place] [address], [facility] CBC COMPLETE BLOOD COUNTon 0 - Erythrocyte distribution width Ratio (RBC) 13.0 % Normal 11.5-15.0 [facility] Comment on above: Order Comment: No: D o not add to previous draw Performed By: #### 5 [id number] #### [facility] [address] [place] [address], [facility] Hematocrit Volume Fraction (Bld) 38.3 % Normal 36.0-45.0 The [facility] Comment on above: Order Comment: No: D o not add to previous draw Performed By: #### 5 [id number] #### [facility] [address] [place] [address], [facility] Hemoglobin mass conc (Bld) 12.6 g/dL Normal 12.0-15.0 The [facility] Comment on above: Order Comment: No: D o not add to previous draw Performed By: #### 5 0608 #### [facility] [address] [facility] Entitic mass (RBC) 31.1 pg Normal 27.0-33.0 The [facility] Comment on above: Order Comment: No: D o not add to previous draw Performed By: #### 5 [id number] #### [facility] [address] [place] [address], [facility] MCHC mass conc (RBC) 32.9 g/dL Normal 32.0-35.0 The [facility] Comment on above: Order Comment: No: D o not add to previous draw Performed By: #### 5 [id number] #### [facility] [address] [place] [address], [facility] MCV Entitic volume (RBC) 94.6 fL Normal 82.0-98.0 The [facility] Comment on above: Order Comment: No: D o not add to previous draw Performed By: #### 5 [id number] #### [facility] [address] Nucleated RBC/100 WBC Ratio (Bld) 0 % Normal 0-0 The [facility] Comment on above: Order Comment: No: D o not add to previous draw Performed By: #### 5 [id number] #### [facility] [address] [place] [address], [facility] PLAT CNT 266 10*3/uL Normal 150-400 The [facility] Comment on above: Order Comment: No: D o not add to previous draw Performed By: #### 5 [id number] #### [facility] [address] [place] [address], [facility] RBC #/vol (Bld) 4.05 10*6/uL Normal 3.80-5.00 [facility] Comment on above: Order Comment: No: D o not add to previous draw Performed By: #### 5 [id number] #### [facility] [address] [place] [address], [facility] WBC #/vol (Bld) 9.01 10*3/uL Normal 4.00-10.60 [facility] Comment on above: Order Comment: No: D o not add to previous draw Performed By: #### [id number] #### [facility] [address] PROTHROMBIN TIMEon 9 INR Coag RelTime (PPP) 1.07 {INR} Normal 0.91-1.16 [facility] Comment on above: Order Comment: No: D o not add to previous draw Result Comment: ACCC P RECOMMENDED INR FOR WARFARIN THERAPY ------- ------- CONDITION INR PROPHYLAXIS OF VENOUS THROMBOSIS 2-3 (HIGH-RISK SURGERY) TREATMENT OF VENOUS THROMBOSIS 2-3 TREATMENT OF PULMONARY EMBOLISM 2-3 PREVENTION OF SYSTEMIC EMBOLISM: 2-3 ACUTE MYOCARDIAL INFARCTION TISSUE HEART VALVES VALVULAR HEART DISEASE ATRIAL FIBRILLATION RECURRENT SYSTEMIC EMBOLISM MECHANICAL HEART VALVE 2.5-3.5 FROM: ORAL ANTICOAGULANTS. MECHANISM OF ACTION, CLINICAL EFFECTIVENESS, AND OPTIMAL THERAPEUTIC RANGE. CHEST 1995;108:231S-246S. Performed By: #### [id number] #### [facility] [address] Prothrombin time (PT) Coag time (PPP) 13.9 s Normal 12.3-14.8 [facility] Comment on above: Order Comment: No: D o not add to previous draw Result Comment: ALL RESULTS MUST BE INTERPRETED WITH RESPECT TO BLOOD DRAWING ARTIFACT OR DILUTION ERROR OF ANTICOAGULANT AT THE TIME OF SAMPLING. Performed By: #### [id number] #### [facility] [address] [place], [place] [address] Encounters Encounter Date Encounter Type Care Provider Facility Start: 01-16-2023 ambulatory JN GARCIA . Facility :[facility] Start: 01-15-2023 End: 01-15-2023 ambulatory APRIL CASTANEDA . Facility:[facility] Start: 01-10-2023 End: 01-11-[address] KRZYSZTOF HARP . Facility:[facility] Start: 12-15-2022 End: 12-15-2022 ambulatory APRIL CASTANEDA . Facility:[facility] Start: 12-15-2022 ambulatory CECILIAMILANA RIVERA [facility] Start: 12-05-2022 End: 12-06-[address] KRZYSZTOF HARP . Facility:[facility] Start: 11-25-2022 End: 11-27-2022 Evaluation and management of inpatient DR KRZYSZTOF HARP . Facility:[facility] Start: 11-13-2022 End: 11-14-[address] KRZYSZTOF HARP . Facility:[facility] Start: 11-09-2022 End: 11-10-[address] KRZYSZTOF HARP . Facility:[facility] Start: 10-20-2022 End: 10-23-[address] KRZYSZTOF HARP . Facility:[facility] Start: 10-19-2022 End: 10-20-[address] KRZYSZTOF HARP . Facility:[facility] Start: 10-18-2022 End: 10-19-[address] KRZYSZTOF HARP . Facility:[facility] Start: 09-25-2022 End: 09-25-[address] KRZYSZTOF HARP . Facility:[facility] Start: 07-25-2022 End: 07-26-[address] KRZYSZTOF HARP . Facility:[facility] Start: 05-26-2022 End: 05-27-[address] KRZYSZTOF HARP . Facility:[facility] Start: 05-25-2022 End: 05-26-[address] KRZYSZTOF HARP . Facility:[facility] Start: 05-24-2022 End: 05-25-[address] KRZYSZTOF HARP . Facility:[facility] Start: 05-11-2022 End: 05-12-[address] KRZYSZTOF HARP . Facility:[facility] Start: 02-14-2022 End: 02-15-[address] KRZYSZTOF HARP . Facility:[facility] Start: 11-19-2018 End: 11-20-2018 Patient encounter procedure PROVIDER UNKNOWN Facility:[facility] Start: 11-13-2018 End: 11-14-2018 Patient encounter procedure DEFAULT PHYSICIAN Facility:[facility] Start: 10-31-2018 End: 11-01-2018 Patient encounter procedure DEFAULT PHYSICIAN Facility:[facility] Start: 09-23-2018 End: 09-24-2018 Patient encounter procedure DEFAULT PHYSICIAN Facility:[facility] Start: 09-05-2018 End: 09-06-2018 Patient encounter procedure DEFAULT PHYSICIAN Facility:[facility] Payers Date Payer Category Payer Unknown [id number] 1950 Unknown [id number] 2.16.8 [id number] 1950 Unknown [id number] 2.16.8 40.1.749515.3.579.2.647 1948 Unknown [id number] 2.16.8 40.1.355389.3.579.2.647 1948 Unknown [id number] 2.16.8 40.1.392445.3.579.2.647 1948 Unknown [id number] 2.16.8 40.1.054235.3.579.2.647 1948 Unknown [id number] 2.16.84 0.1.055488.3.579.2.593 1948 Unknown [id number] 2.16.84 0.1.375280.3.579.2.593 1948 Unknown [id number] 2.16.84 0.1.854417.3.579.2.593 1948 Unknown [id number] 2.16.84 0.1.158185.3.579.2.593 1948 Unknown [id number] 2.16.84 0.1.794333.3.579.2.593 1948 Unknown [id number] 2.16.84 0.1.219471.3.579.2. 1948 Unknown [id number] 2.16.84 0.1.304426.3.579.2.593 1948 Unknown [id number] 2.16.84 0.1.115665.3.579.2.593 1948 Unknown [id number] 2.16.84 0.1.089791.3.579.2.593 1948 Unknown [id number] 2.16.84 0.1.544706.3.579.2.593 1948 Unknown [id number] 2.16.84 0.1.816733.3.579.2.593 1948 Unknown [id number] 2.16.84 0.1.016744.3.579.2.593 1948 Unknown [id number] 2.16.84 0.1.694098.3.579.2.593 1948 Unknown [id number] 2.16.84 0.1.507272.3.579.2.593 1948 Unknown [id number] 2.16.84 0.1.415710.3.579.2.593 1948 Unknown [id number] 2.16.84 0.1.165457.3.579.2.593 1948 Unknown [id number] 2.16.84 0.1.520061.3.579.2.593 1948 Unknown [id number] 2.16.84 0.1.965880.3.579.2.593 1948 Unknown [id number] 2.16.84 0.1.145742.3.579.2.593 Medicare [id number] Unknown Progress note 12-15-2022 Note Date & Type Note Facility 12-15-2022 Note Cardiology Follow Up Progress Note Chief Complaint: post hospitalization follow up HPI: Sheila Mac is a 72 y.o. female with a past medical history of HTN, HLD, and TIA. Patient was initially referred to Cardiology clinic for evaluation of shortness of breath. She had extensive evaluation including echocardiogram, stress test, coronary angiography, and right heart catheterization. Work-up was unrevealing, and shortness of breath was thought to be secondary to noncardiac etiology. Patient presents today to cardiology clinic for follow up. She was recently hospitalized with acute CVA. Patient was found to have an Acute left inferior stroke, multifocal, and left watershed distribution per neurology's note. Angiography demonstrated moderate carotid stenosis but no high-grade carotid stenosis. Patient was recommended to follow-up with vascular surgery on an outpatient basis. Today, patient states that she She has been improving from a neurological standpoint. She has some persistent neurological deficits, but overall, she is doing better. She complains of her chronic shortness of breath. She denies that it has worsened. She denies any chest pain. She denies any significant lower extremity edema, orthopnea, paroxysmal nocturnal dyspnea.No near-syncope or syncope. Patient's blood pressure medications were recently discontinued by her primary care physician. Her blood pressure is significantly elevated in clinic today. As part of her stroke evaluation, patient had echocardiogram and stress test performed. Echo showed mildly elevated right-sided pressures. Otherwise, studies were unremarkable. Cardiology ROS: GENERAL: Denies fever, chills, night sweats, weight loss. HEENT: Denies changes in vision, photophobia, changes in hearing, epistaxis, oral bleeding. CARDIOVASCULAR: Endorses chronic shortness of breath. Denies chest pain, exertional dyspnea, orthopnea/PND, lower extremity edema, palpitations, lightheadedness/dizziness. RESPIRATORY: Denies SOB, coughing, wheezing GI: Denies abdominal pain, nausea/vomiting, heartburn, melena/hematochezia. RENAL: Denies dysuria, hematuria, flank pain. MSK: Denies muscle weakness/pain, arthralgias/joint pain. NEUROLOGIC: Denies LOC, weakness, numbness, headaches. SKIN: Denies abnormal rashes or bleeding. PSYCH: Denies significant anxiety, depression, sleep disturbances. Medications Current Outpatient Medications on File Prior to Visit Medication Sig Dispense Refill aspirin 81 mg chewable tablet Chew 81 mg 1 (one) time each day. atorvastatin (Lipitor) 20 mg tablet Take 20 mg by mouth in the morning. clopidogrel (Plavix) 75 mg tablet Take by mouth in the morning. pantoprazole (ProtoNix) 40 mg EC tablet Take 40 mg by mouth in the morning and at bedtime. rosuvastatin (Crestor) 20 mg tablet Take 20 tablets by mouth in the morning. sucralfate (Carafate) 1 gram tablet Take 1 tablet by mouth in the morning, noon, at afternoon, at bedtime,. [DISCONTINUED] carvedilol (Coreg) 12.5 mg tablet Take 18.75 tablets by mouth in the morning and at bedtime. [DISCONTINUED] carvedilol (Coreg) 3.125 mg tablet Take 3.125 mg by mouth with breakfast and with evening meal. No current facility-administered medications on file prior to visit. Allergies Iodinated contrast media, Morphine, Nsaids (non-steroidal anti-inflammatory drug), and Penicillins Physical Exam VITAL SIGNS: BP (!) 182/128 (BP Location: Right arm, Patient Position: Sitting) Pulse 106 Wt 63.5 kg (140 lb) SpO2 99% BMI 24.80 kg/m??? Constitutional: Well developed, Well nourished, No acute distress, Non-toxic appearance. HENT: Normocephalic, Atraumatic, Bilateral external ears have normal appearance, Bilateral TMs clear, Oropharynx moist, No oral or pharyngeal exudates, Nose appears normal, nares are patent. Eyes: PERRLA, EOMI, Conjunctiva normal, No discharge. Neck: Normal range of motion, No tenderness, Supple, No stridor. No cervical lymphadenopathy noted. Cardiovascular: Normal heart rate, Normal rhythm, No murmurs, No rubs, No gallops. Thorax & Lungs: Normal breath sounds, No respiratory distress, No wheezing, No chest tenderness to palpation. Abdomen: Bowel sounds normal, Soft, Nontender, No masses, No pulsatile masses. Skin: Warm, Dry, No erythema, No rash. Back: No tenderness, No CVA tenderness. Extremities: Intact distal pulses, No edema, No tenderness, No cyanosis, No clubbing. Musculoskeletal: No gross weakness Neurologic: Patient has some slowed speech. Psychiatric: Affect normal, Judgment normal, Mood normal. Impression: -Shortness of breath: Likely noncardiac -Cryptogenic stroke -Hypertensive urgency Plan: -Patient's blood pressure was severely elevated in clinic today. Given her recent stroke, decision was made to refer patient to the emergency department for parenteral medications for blood pressure control. Patient is agreeable. She will be (more content not included)... [facility] Progress note 12-15-2022 Note Date & Type Note Facility 12-15-2022 Note Review of Systems Cardiovascular: Positive for leg swelling. Respiratory: Positive for shortness of breath. Skin: Positive for color change. Neurological: Positive for headaches. All other systems reviewed and are negative. [facility] Clinical Note 07-25-2022 Note Date & Type Note Facility 07-25-2022 Note PROCEDURE: MRA NECK WO CON HISTORY: Bilateral carotid artery stenosis COMPARISON: Ultrasound carotid artery bilateral 05/26/2022 TECHNIQUE: Carotid stenosis is reported according to NASCET criteria. FINDINGS: RIGHT INTERNAL CAROTID: No significant stenosis. EXTERNAL CAROTID: No significant stenosis. COMMON CAROTID: Mild narrowing of carotid bulb. VERTEBRAL: Patent without significant stenosis. LEFT INTERNAL CAROTID: No significant stenosis. EXTERNAL CAROTID: No significant stenosis. COMMON CAROTID: Mild narrowing of carotid bulb. VERTEBRAL: Patent without significant stenosis. OTHER: The visualized soft tissues of the neck are also unremarkable. IMPRESSION: 1. Slightly limited examination. 2. Mild narrowing of the carotid bulbs bilaterally, likely due to atherosclerotic disease. Electronically authenticated by: VISHNU MARIE Date: 2022-07-25 13:25 [facility] Clinical Note 05-11-2022 Note Date & Type Note Facility 05-11-2022 Note PROCEDURE: XR FOOT L T MIN 3 VIEWS HISTORY: Pain in left foot ; acute plantar pain COMPARISON: None. FINDINGS: BONES:No fracture, acute abnormality, or significant arthropathy. SOFT TISSUES:No visible soft tissue swelling. EFFUSION:None visible. OTHER: Negative. IMPRESSION: 1. No acute abnormality, significant degenerative changes, or findings to account for patient's symptoms. Electronically authenticated by: VISHNU MARIE Date: 2022-05-11 12:51 [facility] Clinical Note 02-14-2022 Note Date & Type Note Facility 02-14-2022 Note PROCEDURE: XR KNEE L T 4V or > COMPARISON: None. HISTORY: Osteoarthritis FINDINGS: BONES:No fracture, acute abnormality, or significant arthropathy. SOFT TISSUES:Negative. No visible soft tissue swelling. EFFUSION:Moderate suprapatellar joint effusion OTHER: Negative. IMPRESSION: Moderate joint effusion Electronically authenticated by: GODWIN BECK Date: 2022-02-14 17:30 [facility] Summary Purpose Family History No Family History Records FoundNo Family History Records FoundNo Family History Records Found Advance Directives No Advanced Directives Records FoundNo Advanced Directives Records FoundNo Advanced Directives Records Found Additional Source Comments INFORMATION SOURCE (unrecogn ized section and content) DATE CREATED AUTHOR 11/24/2018 [facility] DATE CREATED AUTHOR AUTHOR'S ORGANIZ ATION 12/19/2022 [facility] DATE CREATED AUTHOR AUTHOR'S ORGANIZ ATION 01/18/2023 [facility] FOR RECORDS PERTAINING TO PATIENTS WHO ARE OR HAVE BEEN ENROLLED IN A CHEMICAL DEPENDENCY/SUBSTANCEABUSE PROGRAM, SOME INFORMATION MAY BE OMITTED. This clinical summary was aggregated from multiple sources. Caution should be exercised in using it in the provision of clinical care. This summary normalizes information from multiple sources, and as a consequence, information in this document may materially change the coding, format and clinical context of patient data. In addition, data may be omitted in some cases. CLINICAL DECISIONS SHOULD BE BASED ON THE PRIMARY CLINICAL RECORDS. [employer] [facility]. provides no warranty or guarantee of the accuracy or completeness of information in this document.
[2023-10-03 16:50] LABS: SARS-CoV-2 Ag NEGATIVE (NEGATIVE)
[2023-10-03 16:51] LABS: Influenza Virus A Antigen Negative; Influenza Virus B Antigen Negative; Internal Control Within Normal Limits; Respiratory Syncytial Virus Not Detected (NOT DETECTE)
== END 2023-10-03 16:25 | disposition home or self-care (01) ==
LOC: LAB 16:24
PROVIDERS: PCP Family Medicine; Visit Provider Family Medicine
DX: J21.9 Acute bronchiolitis, unspecified (principal)
CPT/HCPCS: 87420; 87804; 87811

== ENCOUNTER 2023-10-08 11:40 | Outpatient (OUT) | payer MEDICARE, SELFPAY ==
--- OUTSIDE RECORDS SUMMARY | 2023-10-08 11:43 | XMS_ITS | CCD ---
Author Name Unknown Address [address] [place] [address] Organization [facility] Care Team Providers Care Subway Operator Name Role Phone PHYSICIAN, DEFAULT Admitting Unavailable [...] Unavailable HOY ., DR BLANKENSHIP Admitting Unavailable PALISADE, DR GODWIN Cardona Consult[employer] Unavailable HOY ., [...] Admitting Unavailable LEONEL ., APRIL Admitting Unavailable LEONEL ., APRIL Attending Unavailable HOY ., DR [...] Morphine; 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: [MORPHINE] Drug Allergy 7 [facility] Repository (3 sources) NSAIDs; 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: [NSAIDS (NON-STEROIDAL ANTI-INFLAMMATORY DRUG)] Drug allergy (disorder) 9 [facility] Repository (1 source) Penicillin Drug Allergy 9 [facility] Repository (1 source) predniSONE Drug Allergy 9 [facility] Repository (2 sources) Iodinated Contrast- Oral and IV Dye Drug allergy (disorder) 5 [facility] Repository (2 sources) Penicillins; 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: [PENICILLINS] Propensity to adverse reactions to drug (disorder) 5 [facility] Repository (1 source) IODINATED CONTRAST MEDIA; 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: [IODINATED CONTRAST MEDIA] Propensity to adverse reactions to drug (disorder) 3 [facility] Repository (1 source) levoFLOXacin Drug Allergy 3 [facility] (1 source) meloxicam Drug Allergy 3 [facility] Problems Active Problems Problem Classification [...] Other aftercare (2 sources) 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 B1, Whole Blood 118.1 nmol/L Normal 66.5-200.0 [facility] Comment on above: Performed By: #### C BC #### [facility] [address] [place] [address] Dr. Ekta Funk BNPon 01-10-2023 Natriuretic peptide B (Bld) [Mass/Vol] 980.0 pg/mL Critically high <=900.0 [facility] Comment on above: Performed By: #### C VDTBH #### [facility] [address] [place] [address] Dr. Ekta Funk CBC AUTO DIFFon 01-10-2023 BASO # 0.1 103/ul Normal 0.0-0.1 [facility] Comment on above: Performed By: #### C MP #### [facility] [address] [place] [address] Dr. Ekta Funk Basophils/100 WBC (Bld) 1.0 % Normal 0.2-2.0 [facility] Comment on above: Performed By: #### C MP #### [facility] [address] [place] [address] Dr. Ekta Funk EO # 0.4 103/ul Normal 0.0-0.7 [facility] Comment on above: Performed By: #### C MP #### [facility] [address] [place] [address] Dr. Ekta Funk Eosinophils/100 WBC (Bld) 3.7 % Normal 0.9-7.0 [facility] Comment on above: Performed By: #### C MP #### [facility] [address] [place] [address] Dr. Ekta Funk Erythrocyte distribution width (RBC) [Ratio] 13.2 % Normal 11.0-15.0 [facility] Comment on above: Performed By: #### C MP #### [facility] [address] [place] [address] Dr. Ekta Funk Hematocrit (Bld) [Volume fraction] 35.1 % Critically low 36.0-48.0 [facility] Comment on above: Performed By: #### C MP #### [facility] [address] [place] [address] Dr. Ekta Funk Hemoglobin (Bld) [Mass/Vol] 11.3 g/dL Critically low 12.0-16.0 [facility] Comment on above: Performed By: #### C MP #### [facility] [address] [place] [address] Dr. Ekta Funk IG # 0.04 10e3/ul Critically high 0.00-0.03 [facility] Comment on above: Performed By: #### C MP #### [facility] [address] [place] [address] Dr. Ekta Funk IG % 0.4 % Normal 0.0-0.5 [facility] Comment on above: Performed By: #### C MP #### [facility] [address] [place] [address] Dr. Ekta Funk LYMPH # 2.0 103/ul Normal 1.2-3.8 [facility] Comment on above: Performed By: #### C MP #### [facility] [address] [place] [address] Dr. Ekta Funk Lymphocytes/100 WBC (Bld) 20.8 % Normal 20.5-60.0 [facility] Comment on above: Performed By: #### C MP #### [facility] [address] [place] [address] Dr. Ekta Funk MANUAL DIFF REQ NO Normal [facility] Comment on above: Performed By: #### C MP #### [facility] [address] [place] [address] Dr. Ekta Funk MCH (RBC) [Entitic mass] 32.3 pg Normal 26.7-34.0 [facility] Comment on above: Performed By: #### C MP #### [facility] [address] [place] [address] Dr. Ekta Funk MCHC (RBC) [Mass/Vol] 32.2 g/dL Normal 29.9-35.2 [facility] Comment on above: Performed By: #### C MP #### [facility] [address] [place] [address] Dr. Ekta Funk MCV (RBC) [Entitic vol] 100.3 fL Critically high 81.0-99.0 [facility] Comment on above: Performed By: #### C MP #### [facility] [address] [place] [address] Dr. Ekta Funk MONO # 0.8 103/ul Normal 0.3-0.8 [facility] Comment on above: Performed By: #### C MP #### [facility] [address] [place] [address] Dr. Ekta Funk Monocytes/100 WBC (Bld) 7.9 % Normal 1.7-12.0 [facility] Comment on above: Performed By: #### C MP #### [facility] [address] [place] [address] Dr. Ekta Funk NEUT # 6.4 103/ul Normal 1.4-6.5 [facility] Comment on above: Performed By: #### C MP #### [facility] [address] [place] [address] Dr. Ekta Funk Neutrophils/100 WBC (Bld) 66.2 % Normal 43.0-75.0 [facility] Comment on above: Performed By: #### C MP #### [facility] [address] [place] [address] Dr. Ekta Funk Platelet mean volume (Bld) [Entitic vol] 9.6 fL Normal 9.5-13.5 [facility] Comment on above: Performed By: #### C MP #### [facility] [address] [place] [address] Dr. Ekta Funk PLT 255 103/ul Normal 150-450 [facility] Comment on above: Performed By: #### C MP #### [facility] [address] [address] [address] Ekta Funk RBC 3.50 106/ul Critically low 4.20-5.40 [facility] Comment on above: Performed By: #### C MP #### [facility] [address] [address] [address] Ekta Funk WBC 9.7 103/ul Normal 4.0-11.0 [facility] Comment on above: Performed By: #### C MP #### [facility] [address] [address] [address] Ekta Funk CRPon 01-10-2023 CRP [Mass/Vol] mg/L Normal <=1.0 [facility] Comment on above: Performed By: #### C BC #### [facility] [address] [place] [address] Dr. Ekta Funk FREE THYROXINE INDEX T7on FTI 2.62 Normal 1.30-4.50 [facility] Comment on above: Performed By: #### C BC #### [facility] [address] [place] [address] Dr. Ekta Funk T3U 32.0 % Normal 30.0-39.0 [facility] Comment on above: Performed By: #### C BC #### [facility] [address] [place] [address] Dr. Ekta Funk T4 [Mass/Vol] 8.20 ug/dL Normal 4.80-13.90 [facility] Comment on above: Performed By: #### C BC #### [facility] [address] [place] [address] Dr. Ekta Funk IRONon 01-10-2023 Iron [Mass/Vol] 61.0 ug/dL Normal 50.0-170.0 [facility] Comment on above: Performed By: #### B 12FOL, VITAD, IRON #### [facility] [address] [place] [address] Dr. Ekta Funk PROF 14(COMP METB)on 023 Albumin [Mass/Vol] 2.9 g/dL Critically low 3.4-5.0 [facility] Comment on above: Performed By: #### C VDTBH #### [facility] [address] [address] [address] Ekta Funk Albumin/Globulin [Mass ratio] 0.6 {ratio} Normal [facility] Comment on above: Performed By: #### C VDTBH #### [facility] [address] [address] [address] Ekta Funk ALP [Catalytic activity/Vol] 101 U/L Normal 46-116 [facility] Comment on above: Performed By: #### C VDTBH #### [facility] [address] [place] [address] Dr. Ekta Funk ALT [Catalytic activity/Vol] 16 U/L Normal 14-59 [facility] Comment on above: Performed By: #### C VDTBH #### [facility] [address] [place] [address] Dr. Ekta Funk Anion gap [Moles/Vol] 14.6 mmol/L Normal [facility] Comment on above: Performed By: #### C VDTBH #### [facility] [address] [place] [address] Dr. Ekta Funk AST [Catalytic activity/Vol] 15 U/L Normal 15-37 [facility] Comment on above: Performed By: #### C VDTBH #### [facility] [address] [address] [address] Ekta Funk Bilirubin [Mass/Vol] 0.4 mg/dL Normal 0.2-1.0 [facility] Comment on above: Performed By: #### C VDTBH #### [facility] [address] [address] [address] Ekta Funk Calcium [Mass/Vol] 9.2 mg/dL Normal 8.5-10.1 [facility] Comment on above: Performed By: #### C VDTBH #### [facility] [address] [address] [address] Ekta Funk Chloride [Moles/Vol] 107 mmol/L Normal 98-107 [facility] Comment on above: Performed By: #### C VDTBH #### [facility] [address] [address] [address] Ekta Funk CO2 [Moles/Vol] 24.4 mmol/L Normal 21.0-32.0 [facility] Comment on above: Performed By: #### C VDTBH #### [facility] [address] [place] [address] Dr. Ekta Funk Creatinine [Mass/Vol] 2.02 mg/dL Critically high 0.55-1.02 [facility] Comment on above: Performed By: #### C VDTBH #### [facility] [address] [place] [address] Dr. Ekta Funk EGFR-AF [place] 29 mL/min/1.73m2 Critically low >=60 [facility] Comment on above: Performed By: #### C VDTBH #### [facility] [address] [place] [address] Dr. Ekta Funk EGFR-NON AF [place] 24 mL/min/1.73m2 Critically low >=60 [facility] Comment on above: Performed By: #### C VDTBH #### [facility] [address] [place] [address] Dr. Ekta Funk Globulin (S) [Mass/Vol] 4.5 g/dL Normal [facility] Comment on above: Performed By: #### C VDTBH #### [facility] [address] [place] [address] Dr. Ekta Funk Glucose [Mass/Vol] 103 mg/dL Normal 74-106 [facility] Comment on above: Performed By: #### C VDTBH #### [facility] [address] [place] [address] Dr. Ekta Funk Potassium [Moles/Vol] 5.0 mmol/L Normal 3.5-5.1 [facility] Comment on above: Performed By: #### C VDTBH #### [facility] [address] [place] [address] Dr. Ekta Funk Protein [Mass/Vol] 7.4 g/dL Normal 6.4-8.2 [facility] Comment on above: Performed By: #### C VDTBH #### [facility] [address] [place] [address] Dr. Ekta Funk Sodium [Moles/Vol] 141 mmol/L Normal 136-145 [facility] Comment on above: Performed By: #### C VDTBH #### [facility] [address] [place] [address] Dr. Ekta Funk Urea nitrogen [Mass/Vol] 23.0 mg/dL Critically high 7.0-18.0 [facility] Comment on above: Performed By: #### C VDTBH #### [facility] [address] [place] [address] Dr. Ekta Funk Urea nitrogen/Creatinine [Mass ratio] 11.4 mg/mg Normal [facility] Comment on above: Performed By: #### C VDTBH #### [facility] [address] [place] [address] Dr. Ekta Funk TSHon 01-10-2023 TSH 1.793 uIU/mL Normal 0.358-3.740 [facility] Comment on above: Performed By: #### C VDTBH #### [facility] [address] [place] [address] Dr. Ekta Funk VIT B12 AND FOLATEon 023 Cobalamin (Vitamin B12) [Mass/Vol] 175.0 pg/mL Critically low 193.0-986.0 [facility] Comment on above: Performed By: #### B 12FOL, VITAD, IRON #### [facility] [address] [place] [address] Dr. Ekta Funk FOLATE 10.30 ng/mL Normal 8.60-58.90 [facility] Comment on above: Performed By: #### B 12FOL, VITAD, IRON #### [facility] [address] [place] [address] Dr. Ekta Funk VITAMIN D 25 OHon 01-10-2023 VIT D 25-OH 24.0 ng/mL Normal [facility] Comment on above: Performed By: #### B 12FOL, VITAD, IRON #### [facility] [address] [place], [place] [address] Dr. Ekta Funk VIT D RANGES SEE BELOW Normal [facility] Comment on above: Result Comment: <20 ng/mL Vit D deficient 20 - <30 ng/mL Vit D insufficient 30 - 100 ng/mL Vit D sufficient >100 ng/mL Potential Toxicity Performed By: #### B 12FOL, VITAD, IRON #### [facility] [address] [place], [place] [address] Dr. Ekta Funk Office Visiton 12-15-2022 Follow-up visit [id number] Sheila Mac 1950 F Date Provider Department Center 12/15/2022 [id number] RIVERA [facility] No family history on file Level of Service:61610 [place] OFFICE/OUTPATIENT ESTABLISHED MOD MDM 30-39 MIN Reason for Visit and Comments: Follow-up [043602] - Is here f/u stress test pt states she had Bruises all over both legs symptoms stated a week ago also stated legs are swollen and burning Normal [facility] NM STRESS/REST MULTIon 12-05 NM STRESS/REST MULTI Patient: SHEILA MAC Exam Date: 12/05/2022 : 1950 Gender:F Ordering : DR KRZYSZTOF HARP . Admission #: [id number] Family : Order #: [id number] CLICK HERE TO VIEW EXAM RADIOLOGY REPORT [...] Marie M.D. on 12/06/2022 at 07:26 Normal [facility] ECHOCARDIO M/2D COMPLETEon 0 11-27-2022 ECHOCARDIO M/2D COMPLETE Patient: SHEILA MAC Exam Date: 11/27/2022 : 1950 Gender:F Ordering : DR KRZYSZTOF HARP . Admission #: [id number] Family : Order #: [id number] CLICK HERE TO VIEW EXAM ECHOCARDIOGRAM REPORT [...] M.D. on 11/27/2022 at 14:39 Normal [facility] CBC AUTO DIFFon 11-26-2022 BASO # 0.0 103/ul Normal 0.0-0.1 [facility] Comment on above: Performed By: #### I NSULIN #### [facility] [address] [place] [address] Dr. kEta Fukn Basophils/100 WBC (Bld) 0.6 % Normal 0.2-2.0 [facility] Comment on above: Performed By: #### I NSULIN #### [facility] [address] [place] [address] Dr. Ekta Funk EO # 0.3 103/ul Normal 0.0-0.7 [facility] Comment on above: Performed By: #### I NSULIN #### [facility] [address] [place] [address] Dr. Ekta Funk Eosinophils/100 WBC (Bld) 4.8 % Normal 0.9-7.0 [facility] Comment on above: Performed By: #### I NSULIN #### [facility] [address] [address] [address] Ekta Funk Erythrocyte distribution width (RBC) [Ratio] 13.3 % Normal 11.0-15.0 [facility] Comment on above: Performed By: #### I NSULIN #### [facility] [address] [place] [address] Dr. Ekta Funk Hematocrit (Bld) [Volume fraction] 29.1 % Critically low 36.0-48.0 [facility] Comment on above: Performed By: #### I NSULIN #### [facility] [address] [place] [address] Dr. Ekta Funk Hemoglobin (Bld) [Mass/Vol] 9.5 g/dL Critically low 12.0-16.0 [facility] Comment on above: Performed By: #### I NSULIN #### [facility] [address] [address] [address] Ekta Funk IG # 0.07 10e3/ul Critically high 0.00-0.[address] [facility] Comment on above: Performed By: #### I NSULIN #### [facility] [address] [address] [address] Ekta Funk IG % 1.0 % Critically high 0.0-0.5 [facility] Comment on above: Performed By: #### I NSULIN #### [facility] [address] [place] [address] Dr. Ekta Funk LYMPH # 1.2 103/ul Normal 1.2-3.8 [facility] Comment on above: Performed By: #### I NSULIN #### [facility] [address] [address] [address] Ekta Funk Lymphocytes/100 WBC (Bld) 17.2 % Critically low 20.5-60.0 [facility] Comment on above: Performed By: #### I NSULIN #### [facility] [address] [place] [address] Dr. Ekta Fukn MANUAL DIFF REQ NO Normal [facility] Comment on above: Performed By: #### I NSULIN #### [facility] [address] [address] [address] Ekta Funk MCH (RBC) [Entitic mass] 31.7 pg Normal 26.7-34.0 [facility] Comment on above: Performed By: #### I NSULIN #### [facility] [address] [address] [address] Ekta Funk MCHC (RBC) [Mass/Vol] 32.6 g/dL Normal 29.9-35.2 [facility] Comment on above: Performed By: #### I NSULIN #### [facility] [address] [address] [address] Ekta Funk MCV (RBC) [Entitic vol] 97.0 fL Normal 81.0-99.0 [facility] Comment on above: Performed By: #### I NSULIN #### [facility] [address] [place] [address] Dr. Ekta Funk MONO # 0.8 103/ul Normal 0.3-0.8 [facility] Comment on above: Performed By: #### I NSULIN #### [facility] [address] [address] [address] Ekta Funk Monocytes/100 WBC (Bld) 11.1 % Normal 1.7-12.0 [facility] Comment on above: Performed By: #### I NSULIN #### [facility] [address] [place] [address] Dr. Ekta Funk NEUT # 4.5 103/ul Normal 1.4-6.5 [facility] Comment on above: Performed By: #### I NSULIN #### [facility] [address] [place] [address] Dr. Ekta Funk Neutrophils/100 WBC (Bld) 65.3 % Normal 43.0-75.0 [facility] Comment on above: Performed By: #### I NSULIN #### [facility] [address] [place] [address] Dr. Ekta Funk Platelet mean volume (Bld) [Entitic vol] 9.4 fL Critically low 9.5-13.5 [facility] Comment on above: Performed By: #### I NSULIN #### [facility] [address] [place] [address] Dr. Ekta Funk PLT 263 103/ul Normal 150-450 [facility] Comment on above: Performed By: #### I NSULIN #### [facility] [address] [place] [address] Dr. Ekta Funk RBC 3.00 106/ul Critically low 4.20-5.40 [facility] Comment on above: Performed By: #### I NSULIN #### [facility] [address] [place] [address] Dr. Ekta Funk WBC 6.9 103/ul Normal 4.0-11.0 [facility] Comment on above: Performed By: #### I NSULIN #### [facility] [address] [place] [address] Dr. Ekta Funk PROF 14(COMP METB)on 023 Albumin [Mass/Vol] 2.2 g/dL Critically low 3.4-5.0 [facility] Comment on above: Performed By: #### C MP #### [facility] [address] [place] [address] Dr. Ekta Funk Albumin/Globulin [Mass ratio] 0.6 {ratio} Normal [facility] Comment on above: Performed By: #### C MP #### [facility] [address] [place] [address] Dr. Ekta Funk ALP [Catalytic activity/Vol] 82 U/L Normal 46-116 [facility] Comment on above: Performed By: #### C MP #### [facility] [address] [place] [address] Dr. Ekta Funk ALT [Catalytic activity/Vol] 13 U/L Critically low 14-59 [facility] Comment on above: Performed By: #### C MP #### [facility] [address] [place] [address] Dr. Ekta Funk Anion gap [Moles/Vol] 14.0 mmol/L Normal [facility] Comment on above: Performed By: #### C MP #### [facility] [address] [place] [address] Dr. Ekta Funk AST [Catalytic activity/Vol] 18 U/L Normal 15-37 [facility] Comment on above: Performed By: #### C MP #### [facility] [address] [place] [address] Dr. Ekta Funk Bilirubin [Mass/Vol] 0.4 mg/dL Normal 0.2-1.0 [facility] Comment on above: Performed By: #### C MP #### [facility] [address] [place] [address] Dr. Ekta Funk Calcium [Mass/Vol] 8.6 mg/dL Normal 8.5-10.1 [facility] Comment on above: Performed By: #### C MP #### [facility] [address] [address] [address] Ekta Funk Chloride [Moles/Vol] 108 mmol/L Critically high 98-107 [facility] Comment on above: Performed By: #### C MP #### [facility] [address] [address] [address] Ekta Funk CO2 [Moles/Vol] 19.6 mmol/L Critically low 21.0-32.0 [facility] Comment on above: Performed By: #### C MP #### [facility] [address] [place] [address] Dr. Ekta Funk Creatinine [Mass/Vol] 1.70 mg/dL Critically high 0.55-1.02 [facility] Comment on above: Performed By: #### C MP #### [facility] [address] [place] [address] Dr. Ekta Funk EGFR-AF [place] 36 mL/min/1.73m2 Critically low >=60 [facility] Comment on above: Performed By: #### C MP #### [facility] [address] [place] [address] Dr. Ekta Funk EGFR-NON AF [place] 29 mL/min/1.73m2 Critically low >=60 [facility] Comment on above: Performed By: #### C MP #### [facility] [address] [address] [address] Ekta Funk Globulin (S) [Mass/Vol] 3.6 g/dL Normal [facility] Comment on above: Performed By: #### C MP #### [facility] [address] [address] [address] Ekta Funk Glucose [Mass/Vol] 103 mg/dL Normal 74-106 [facility] Comment on above: Performed By: #### C MP #### [facility] [address] [address] [address] Ekta Funk Potassium [Moles/Vol] 4.6 mmol/L Normal 3.5-5.1 [facility] Comment on above: Performed By: #### C MP #### [facility] [address] [place] [address] Dr. Ekta Funk Protein [Mass/Vol] 5.8 g/dL Critically low 6.4-8.2 [facility] Comment on above: Performed By: #### C MP #### [facility] [address] [place] [address] Dr. Ekta Funk Sodium [Moles/Vol] 137 mmol/L Normal 136-145 [facility] Comment on above: Performed By: #### C MP #### [facility] [address] [place] [address] Dr. Ekta Funk Urea nitrogen [Mass/Vol] 26.0 mg/dL Critically high 7.0-18.0 [facility] Comment on above: Performed By: #### C MP #### [facility] [address] [place] [address] Dr. Ekta Funk Urea nitrogen/Creatinine [Mass ratio] 15.3 mg/mg Normal [facility] Comment on above: Performed By: #### C MP #### [facility] [address] [place] [address] Dr. Ekta Funk CBC AUTO DIFFon 11-25-2022 BASO # 0.1 103/ul Normal 0.0-0.1 [facility] Comment on above: Performed By: #### C BC #### [facility] [address] [place] [address] Dr. Ekta Funk Basophils/100 WBC (Bld) 0.7 % Normal 0.2-2.0 [facility] Comment on above: Performed By: #### C BC #### [facility] [address] [place] [address] Dr. Ekta Funk EO # 0.3 103/ul Normal 0.0-0.7 [facility] Comment on above: Performed By: #### C BC #### [facility] [address] [place] [address] Dr. Ekta Funk Eosinophils/100 WBC (Bld) 3.4 % Normal 0.9-7.0 [facility] Comment on above: Performed By: #### C BC #### [facility] [address] [place] [address] Dr. Ekta Funk Erythrocyte distribution width (RBC) [Ratio] 13.6 % Normal 11.0-15.0 [facility] Comment on above: Performed By: #### C BC #### [facility] [address] [place] [address] Dr. Ekta Funk Hematocrit (Bld) [Volume fraction] 32.1 % Critically low 36.0-48.0 [facility] Comment on above: Performed By: #### C BC #### [facility] [address] [place] [address] Dr. Ekta Funk Hemoglobin (Bld) [Mass/Vol] 10.3 g/dL Critically low 12.0-16.0 [facility] Comment on above: Performed By: #### C BC #### [facility] [address] [place] [address] Dr. Ekta Funk IG # 0.08 10e3/ul Critically high 0.00-0.03 [facility] Comment on above: Performed By: #### C BC #### [facility] [address] [place] [address] Dr. Ekta Funk IG % 0.9 % Critically high 0.0-0.5 [facility] Comment on above: Performed By: #### C BC #### [facility] [address] [place] [address] Dr. Ekta Funk LYMPH # 0.9 103/ul Critically low 1.2-3.8 [facility] Comment on above: Performed By: #### C BC #### [facility] [address] [place] [address] Dr. Ekta Funk Lymphocytes/100 WBC (Bld) 10.7 % Critically low 20.5-60.0 [facility] Comment on above: Performed By: #### C BC #### [facility] [address] [place] [address] Dr. Ekta Funk MANUAL DIFF REQ NO Normal [facility] Comment on above: Performed By: #### C BC #### [facility] [address] [place] [address] Dr. Ekta Funk MCH (RBC) [Entitic mass] 32.2 pg Normal 26.7-34.0 [facility] Comment on above: Performed By: #### C BC #### [facility] [address] [place] [address] Dr. Ekta Funk MCHC (RBC) [Mass/Vol] 32.1 g/dL Normal 29.9-35.2 [facility] Comment on above: Performed By: #### C BC #### [facility] [address] [place] [address] Dr. Ekta Funk MCV (RBC) [Entitic vol] 100.3 fL Critically high 81.0-99.0 [facility] Comment on above: Performed By: #### C BC #### [facility] [address] [place] [address] Dr. Ekta Funk MONO # 0.9 103/ul Critically high 0.3-0.8 [facility] Comment on above: Performed By: #### C BC #### [facility] [address] [place] [address] Dr. Ekta Funk Monocytes/100 WBC (Bld) 9.9 % Normal 1.7-12.0 [facility] Comment on above: Performed By: #### C BC #### [facility] [address] [place] [address] Dr. Ekta Funk NEUT # 6.4 103/ul Normal 1.4-6.5 [facility] Comment on above: Performed By: #### C BC #### [facility] [address] [place] [address] Dr. Ekta Funk Neutrophils/100 WBC (Bld) 74.4 % Normal 43.0-75.0 [facility] Comment on above: Performed By: #### C BC #### [facility] [address] [place] [address] Dr. Ekta Funk Platelet mean volume (Bld) [Entitic vol] 9.5 fL Normal 9.5-13.5 [facility] Comment on above: Performed By: #### C BC #### [facility] [address] [place] [address] Dr. Ekta Funk PLT 267 103/ul Normal 150-450 [facility] Comment on above: Performed By: #### C BC #### [facility] [address] [address] [address] Ekta Funk RBC 3.20 106/ul Critically low 4.20-5.40 [facility] Comment on above: Performed By: #### C BC #### [facility] [address] [address] [address] Ekta Funk WBC 8.6 103/ul Normal 4.0-11.0 [facility] Comment on above: Performed By: #### C BC #### [facility] [address] [place] [address] Dr. Ekta Funk BASO # 0.1 103/ul Normal 0.0-0.1 [facility] Comment on above: Performed By: #### C MP #### [facility] [address] [place] [address] Dr. Ekta Funk Basophils/100 WBC (Bld) 0.7 % Normal 0.2-2.0 [facility] Comment on above: Performed By: #### C MP #### [facility] [address] [place] [address] Dr. Ekta Funk EO # 0.3 103/ul Normal 0.0-0.7 [facility] Comment on above: Performed By: #### C MP #### [facility] [address] [place] [address] Dr. Ekta Funk Eosinophils/100 WBC (Bld) 3.9 % Normal 0.9-7.0 [facility] Comment on above: Performed By: #### C MP #### [facility] [address] [place] [address] Dr. Ekta Funk Erythrocyte distribution width (RBC) [Ratio] 13.2 % Normal 11.0-15.0 [facility] Comment on above: Performed By: #### C MP #### [facility] [address] [address] [address] Ekta Funk Hematocrit (Bld) [Volume fraction] 28.0 % Critically low 36.0-48.0 [facility] Comment on above: Performed By: #### C MP #### [facility] [address] [address] [address] Ekta Fnuk Hemoglobin (Bld) [Mass/Vol] 9.3 g/dL Critically low 12.0-16.0 [facility] Comment on above: Performed By: #### C MP #### [facility] [address] [address] [address] Ekta Funk IG # 0.08 10e3/ul Critically high 0.00-0.03 [facility] Comment on above: Performed By: #### C MP #### [facility] [address] [address] [address] Ekta Funk IG % 1.1 % Critically high 0.0-0.5 [facility] Comment on above: Performed By: #### C MP #### [facility] [address] [address] [address] Ekta Funk LYMPH # 0.9 103/ul Critically low 1.2-3.8 [facility] Comment on above: Performed By: #### C MP #### [facility] [address] [address] [address] Ekta Funk Lymphocytes/100 WBC (Bld) 12.1 % Critically low 20.5-60.0 [facility] Comment on above: Performed By: #### C MP #### [facility] [address] [address] [address] Ekta Funk MANUAL DIFF REQ NO Normal [facility] Comment on above: Performed By: #### C MP #### [facility] [address] [place] [address] Dr. Ekta Funk MCH (RBC) [Entitic mass] 32.0 pg Normal 26.7-34.0 [facility] Comment on above: Performed By: #### C MP #### [facility] [address] [address] [address] Ekta Funk MCHC (RBC) [Mass/Vol] 33.2 g/dL Normal 29.9-35.2 [facility] Comment on above: Performed By: #### C MP #### [facility] [address] [address] [address] Ekta Funk MCV (RBC) [Entitic vol] 96.2 fL Normal 81.0-99.0 [facility] Comment on above: Performed By: #### C MP #### [facility] [address] [address] [address] Ekta Funk MONO # 0.7 103/ul Normal 0.3-0.8 [facility] Comment on above: Performed By: #### C MP #### [facility] [address] [place] [address] Dr. Ekta Funk Monocytes/100 WBC (Bld) 9.8 % Normal 1.7-12.0 [facility] Comment on above: Performed By: #### C MP #### [facility] [address] [address] [address] Ekta Funk NEUT # 5.2 103/ul Normal 1.4-6.5 [facility] Comment on above: Performed By: #### C MP #### [facility] [address] [place] [address] Dr. Ekta Funk Neutrophils/100 WBC (Bld) 72.4 % Normal 43.0-75.0 [facility] Comment on above: Performed By: #### C MP #### [facility] [address] [place] [address] Dr. Ekta Funk Platelet mean volume (Bld) [Entitic vol] 9.4 fL Critically low 9.5-13.5 [facility] Comment on above: Performed By: #### C MP #### [facility] [address] [place] [address] Dr. Ekta Funk PLT 250 103/ul Normal 150-450 [facility] Comment on above: Performed By: #### C MP #### [facility] [address] [place] [address] Dr. Ekta Funk RBC 2.91 106/ul Critically low 4.20-5.40 [facility] Comment on above: Performed By: #### C MP #### [facility] [address] [address] [address] Ekta Funk WBC 7.2 103/ul Normal 4.0-11.0 [facility] Comment on above: Performed By: #### C MP #### [facility] [address] [place] [address] Dr. Ekta Funk PROF 14(COMP METB)on 023 Albumin [Mass/Vol] 2.1 g/dL Critically low 3.4-5.0 [facility] Comment on above: Performed By: #### C MP #### [facility] [address] [place] [address] Dr. Ekta Funk Albumin/Globulin [Mass ratio] 0.6 {ratio} Normal [facility] Comment on above: Performed By: #### C MP #### [facility] [address] [place] [address] Dr. Ekta Funk ALP [Catalytic activity/Vol] 68 U/L Normal 46-116 [facility] Comment on above: Performed By: #### C MP #### [facility] [address] [place] [address] Dr. Ekta Funk ALT [Catalytic activity/Vol] 14 U/L Normal 14-59 [facility] Comment on above: Performed By: #### C MP #### [facility] [address] [place] [address] Dr. Ekta Funk Anion gap [Moles/Vol] 12.9 mmol/L Normal [facility] Comment on above: Performed By: #### C MP #### [facility] [address] [place] [address] Dr. Ekta Funk AST [Catalytic activity/Vol] 14 U/L Critically low 15-37 [facility] Comment on above: Performed By: #### C MP #### [facility] [address] [place] [address] Dr. Ekta Funk Bilirubin [Mass/Vol] 0.3 mg/dL Normal 0.2-1.0 [facility] Comment on above: Performed By: #### C MP #### [facility] [address] [address] [address] Ekta Funk Calcium [Mass/Vol] 8.3 mg/dL Critically low 8.5-10.1 [facility] Comment on above: Performed By: #### C MP #### [facility] [address] [address] [address] Ekta Funk Chloride [Moles/Vol] 109 mmol/L Critically high 98-107 [facility] Comment on above: Performed By: #### C MP #### [facility] [address] [place] [address] Dr. Ekta Funk CO2 [Moles/Vol] 19.3 mmol/L Critically low 21.0-32.0 [facility] Comment on above: Performed By: #### C MP #### [facility] [address] [place] [address] Dr. Ekta Funk Creatinine [Mass/Vol] 1.54 mg/dL Critically high 0.55-1.02 [facility] Comment on above: Performed By: #### C MP #### [facility] [address] [place] [address] Dr. Ekta Funk EGFR-AF [place] 40 mL/min/1.73m2 Critically low >=60 [facility] Comment on above: Performed By: #### C MP #### [facility] [address] [place] [address] Dr. Ekta Funk EGFR-NON AF [place] 33 mL/min/1.73m2 Critically low >=60 [facility] Comment on above: Performed By: #### C MP #### [facility] [address] [place] [address] Dr. Ekta Funk Globulin (S) [Mass/Vol] 3.7 g/dL Normal [facility] Comment on above: Performed By: #### C MP #### [facility] [address] [place] [address] Dr. Ekta Funk Glucose [Mass/Vol] 117 mg/dL Critically high 74-106 [facility] Comment on above: Performed By: #### C MP #### [facility] [address] [address] [address] Ekta Funk Potassium [Moles/Vol] 4.2 mmol/L Normal 3.5-5.1 [facility] Comment on above: Performed By: #### C MP #### [facility] [address] [place] [address] Dr. Ekta Funk Protein [Mass/Vol] 5.8 g/dL Critically low 6.4-8.2 [facility] Comment on above: Performed By: #### C MP #### [facility] [address] [place] [address] Dr. Ekta Funk Sodium [Moles/Vol] 137 mmol/L Normal 136-145 [facility] Comment on above: Performed By: #### C MP #### [facility] [address] [place] [address] Dr. Ekta Funk Urea nitrogen [Mass/Vol] 27.0 mg/dL Critically high 7.0-18.0 [facility] Comment on above: Performed By: #### C MP #### [facility] [address] [place] [address] Dr. Ekta Funk Urea nitrogen/Creatinine [Mass ratio] 17.5 mg/mg Normal [facility] Comment on above: Performed By: #### C MP #### [facility] [address] [place] [address] Dr. Ekta Funk AMMONIAon 11-24-2022 Ammonia (P) [Moles/Vol] 13 umol/L Normal 11-32 [facility] Comment on above: Performed By: #### C VDTB #### [facility] [address] [place] [address] Dr. Ekta Funk CBC AUTO DIFFon 11-24-2022 BASO # 0.0 103/ul Normal 0.0-0.1 [facility] Comment on above: Performed By: #### C MP #### [facility] [address] [address] [address] Ekta Funk Basophils/100 WBC (Bld) 0.4 % Normal 0.2-2.0 [facility] Comment on above: Performed By: #### C MP #### [facility] [address] [address] [address] Ekta Funk EO # 0.4 103/ul Normal 0.0-0.7 [facility] Comment on above: Performed By: #### C MP #### [facility] [address] [address] [address] Ekta Funk Eosinophils/100 WBC (Bld) 3.8 % Normal 0.9-7.0 [facility] Comment on above: Performed By: #### C MP #### [facility] [address] [address] [address] Ekta Funk Erythrocyte distribution width (RBC) [Ratio] 13.2 % Normal 11.0-15.0 [facility] Comment on above: Performed By: #### C MP #### [facility] [address] [address] [address] Ekta Funk Hematocrit (Bld) [Volume fraction] 34.0 % Critically low 36.0-48.0 [facility] Comment on above: Performed By: #### C MP #### [facility] [address] [address] [address] Ekta Funk Hemoglobin (Bld) [Mass/Vol] 11.5 g/dL Critically low 12.0-16.0 [facility] Comment on above: Performed By: #### C MP #### [facility] [address] [address] [address] Ekta Funk IG # 0.11 10e3/ul Critically high 0.00-0.[address] [facility] Comment on above: Performed By: #### C MP #### [facility] [address] [address] [address] Ekta Funk IG % 1.2 % Critically high 0.0-0.5 [facility] Comment on above: Performed By: #### C MP #### [facility] [address] [address] [address] Ekta Funk LYMPH # 1.4 103/ul Normal 1.2-3.8 [facility] Comment on above: Performed By: #### C MP #### [facility] [address] [place] [address] Dr. Ekta Funk Lymphocytes/100 WBC (Bld) 14.9 % Critically low 20.5-60.0 [facility] Comment on above: Performed By: #### C MP #### [facility] [address] [place] [address] Dr. Ekta Funk MANUAL DIFF REQ NO Normal [facility] Comment on above: Performed By: #### C MP #### [facility] [address] [place] [address] Dr. Ekta Funk MCH (RBC) [Entitic mass] 32.5 pg Normal 26.7-34.0 [facility] Comment on above: Performed By: #### C MP #### [facility] [address] [place] [address] Dr. Ekta Funk MCHC (RBC) [Mass/Vol] 33.8 g/dL Normal 29.9-35.2 [facility] Comment on above: Performed By: #### C MP #### [facility] [address] [place] [address] Dr. Ekta Funk MCV (RBC) [Entitic vol] 96.0 fL Normal 81.0-99.0 [facility] Comment on above: Performed By: #### C MP #### [facility] [address] [place] [address] Dr. Ekta Funk MONO # 0.9 103/ul Critically high 0.3-0.8 [facility] Comment on above: Performed By: #### C MP #### [facility] [address] [place] [address] Dr. Ekta Funk Monocytes/100 WBC (Bld) 9.7 % Normal 1.7-12.0 [facility] Comment on above: Performed By: #### C MP #### [facility] [address] [address] [address] Ekta Funk NEUT # 6.4 103/ul Normal 1.4-6.5 [facility] Comment on above: Performed By: #### C MP #### [facility] [address] [address] [address] Ekta Funk Neutrophils/100 WBC (Bld) 70.0 % Normal 43.0-75.0 [facility] Comment on above: Performed By: #### C MP #### [facility] [address] [address] [address] Ekta Funk Platelet mean volume (Bld) [Entitic vol] 9.3 fL Critically low 9.5-13.5 [facility] Comment on above: Performed By: #### C MP #### [facility] [address] [place] [address] Dr. Ekta Funk PLT 308 103/ul Normal 150-450 [facility] Comment on above: Performed By: #### C MP #### [facility] [address] [address] [address] Ekta Funk RBC 3.54 106/ul Critically low 4.20-5.40 [facility] Comment on above: Performed By: #### C MP #### [facility] [address] [address] [address] Ekta Funk WBC 9.1 103/ul Normal 4.0-11.0 [facility] Comment on above: Performed By: #### C MP #### [facility] [address] [place] [address] Dr. Ekta Funk CPKon 11-24-2022 CK [Catalytic activity/Vol] 21 U/L Critically low 26-192 [facility] Comment on above: Performed By: #### B 12FOL, VITAD, IRON #### [facility] [address] [place], [place] [id number] Dr. Ekta Funk CT STROKE HEAD WOon [...] by: VANESSA PARADA Date: 2022-11-24 11:09 Normal [facility] CTA HEAD WO W CONon 11-25-19 CTA [...] VISHNU MARIE Date: 2022-11-24 12:41 Normal [facility] CULTURE URINEon 11-24-2022 CULTURE URINE Culture Observations : NO GROWTH. Normal [facility] Comment on above: Performed By: #### I NSULIN #### [facility] [address] [place] [address] Dr. Ekta Funk Covid-19 PCR (CVDTB)on 11-08 SARS-CoV-2 (COVID-19) RNA GANESH+probe Ql (Unsp spec) Not detected Normal NOT DETECTED [facility] Comment on above: Result Comment: When [...] for this test is supported by the [employer] of [employer] and Human Service's declaration that [...] used). Performed By: #### C VDTBH #### [facility] [address] [place] [address] Dr. Ekta Funk ER URINE PROFILEon 3 Bilirubin Ql (U) Negative Normal NEGATIVE [facility] Comment on above: Performed By: #### C BC #### [facility] [address] [place] [address] Dr. Ekta Funk Clarity (U) CLEAR Normal CLEAR [facility] Comment on above: Performed By: #### C BC #### [facility] [address] [place] [address] Dr. Ekta Funk Color (U) LT. YELLOW Normal YELLOW [facility] Comment on above: Performed By: #### C BC #### [facility] [address] [place] [address] Dr. Ekta Funk ERUAHD A micrscopic examination will be performed if indicated. Normal [facility] Comment on above: Performed By: #### C BC #### [facility] [address] [place] [address] Dr. Ekta Funk Glucose Ql (U) Negative Normal NEGATIVE [facility] Comment on above: Performed By: #### C BC #### [facility] [address] [place] [address] Dr. Ekta Funk Hemoglobin Ql (U) Negative Normal NEGATIVE [facility] Comment on above: Performed By: #### C BC #### [facility] [address] [place] [address] Dr. Ekta Funk Ketones Ql (U) Negative Normal NEGATIVE [facility] Comment on above: Performed By: #### C BC #### [facility] [address] [place] [address] Dr. Ekta Funk LEUKOCYTES Negative Normal NEGATIVE [facility] Comment on above: Performed By: #### C BC #### [facility] [address] [place] [address] Dr. Ekta Funk Nitrite Ql (U) Negative Normal NEGATIVE [facility] Comment on above: Performed By: #### C BC #### [facility] [address] [place] [address] Dr. Ekta Funk pH (U) 5.5 [pH] Normal 5-9 [facility] Comment on above: Performed By: #### C BC #### [facility] [address] [place] [address] Dr. Ekta Funk SPEC GRAVITY 1.020 Normal 1.005-<=1.025 [facility] Comment on above: Performed By: #### C BC #### [facility] [address] [place] [address] Dr. Ekta Funk UA PROTEIN Negative Normal NEGATIVE/ TRACE [facility] Comment on above: Performed By: #### C BC #### [facility] [address] [place] [address] Dr. Ekta Funk UR MICRO IND NOT INDICATED Normal [facility] Comment on above: Performed By: #### C BC #### [facility] [address] [place] [address] Dr. Ekta Funk Urobilinogen Qn (U) 0.2 {Ivan'U}/dL Normal 0.2 - 1. 0 [facility] Comment on above: Performed By: #### C BC #### [facility] [address] [place] [address] Dr. Ekta Funk GLYCOHEMOGLOBIN A1Con 2022 ADA RECOMMENDATION SEE BELOW Normal [facility] Comment on above: Result Comment: ADA RECOMMENDED LIMIT 4.0 - 6.0 ADA THERAPEUTIC TARGET < 7.0 ACTION SUGGESTED > 7.0 Performed By: #### B 12FOL VITAD, IRON #### [facility] [address] [place] [address] Dr. Ekta Funk Glucose [Mass/Vol] 143 mg/dL Normal [facility] Comment on above: Performed By: #### B 12FOL, VITAD, IRON #### [facility] [address] [address] [address] Ekta Funk HbA1c (Bld) [Mass fraction] 6.6 % Critically high 4.5-6.2 [facility] Comment on above: Performed By: #### B 12FOL, VITAD, IRON #### [facility] [address] [address] [address] Ekta Funk LACTATE/LACTIC ACIDon 2022 Lactate [Moles/Vol] 1.6 mmol/L Normal 0.4-2.0 [facility] Comment on above: Performed By: #### C MP #### [facility] [address] [address] [address] Ekta Funk Lactate [Moles/Vol] 2.1 mmol/L Critically high 0.4-2.0 [facility] Comment on above: Performed By: #### B 12FOL, VITAD, IRON #### [facility] [address] [place] [address] Dr. Ekta Funk LIPASEon 11-24-2022 Lipase [Catalytic activity/Vol] 165.0 U/L Normal 73.0-393.0 [facility] Comment on above: Performed By: #### B 12FOL, VITAD, IRON #### [facility] [address] [place] [address] Dr. Ekta Funk LIPID PROFILEon 11-24-2022 CHOL-HDL RATIO NORM SEE BELOW Normal [facility] Comment on above: Result Comment: 3.3 - 4.4 LOW RISK 4.4 - 7.1 AVERAGE RISK 7.1 - 11.0 MODERATE RISK >11.0 HIGH RISK Performed By: #### B 12FOL, VITAD, IRON #### [facility] [address] [place] [address] Dr. Ekta Funk Cholesterol [Mass/Vol] 248 mg/dL Critically high <=200 [facility] Comment on above: Performed By: #### B 12FOL, VITAD, IRON #### [facility] [address] [place] [address] Dr. Ekta Funk Cholesterol in HDL [Mass/Vol] 58 mg/dL Normal 40-60 [facility] Comment on above: Performed By: #### B 12FOL, VITAD, IRON #### [facility] [address] [address] [address] Ekta Funk Cholesterol in LDL [Mass/Vol] 165.6 mg/dL Normal [facility] Comment on above: Performed By: #### B 12FOL, VITAD, IRON #### [facility] [address] [address] [address] Ekta Funk Cholesterol.total/Ch olesterol in HDL [Mass ratio] 4.3 {ratio} Normal [facility] Comment on above: Performed By: #### B 12FOL, VITAD, IRON #### [facility] [address] [address] [address] Ekta Funk HDL NORMAL > or = 60 mg/dl - LO W CARDIOVASCULAR RISK <40 mg/dl - HIGH CARDIOVASCULAR RISK Normal [facility] Comment on above: Performed By: #### B 12FOL, VITAD, IRON #### [facility] [address] [address] [address] Ekta Funk LDL CALC NORMAL SEE BELOW Normal [facility] Comment on above: Result Comment: <100 mg/dl OPTIMAL 100 - 129 mg/dl NEAR OR ABOVE OPTIMAL 130 - 159 mg/dl BORDERLINE HIGH 160 - 189 mg/dl HIGH >190 mg/dl VERY HIGH Performed By: #### B 12FOL, VITAD, IRON #### [facility] [address] [address] [address] Ekta Funk Triglyceride [Mass/Vol] 122 mg/dL Normal <=150 [facility] Comment on above: Performed By: #### B 12FOL, VITAD, IRON #### [facility] [address] [address] [address] Etka Funk VLDL CALC 24.4 mg/dL Normal [facility] Comment on above: Performed By: #### B 12FOL, VITAD, IRON #### [facility] [address] [address] [address] Ekta Funk MRI BRAIN WO CONon [...] RAVEN ELAINE Date: 2022-11-24 19:35 Normal [facility] PROF 14(COMP METB)on 023 Albumin [Mass/Vol] 2.7 g/dL Critically low 3.4-5.0 [facility] Comment on above: Performed By: #### B 12FOL, VITAD, IRON #### [facility] [address] [address] [address] Ekta Funk Albumin/Globulin [Mass ratio] 0.6 {ratio} Normal [facility] Comment on above: Performed By: #### B 12FOL, VITAD, IRON #### [facility] [address] [address] [address] Ekta Funk ALP [Catalytic activity/Vol] 85 U/L Normal 46-116 [facility] Comment on above: Performed By: #### B 12FOL, VITAD, IRON #### [facility] [address] [address] [address] Ekta Funk ALT [Catalytic activity/Vol] 18 U/L Normal 14-59 [facility] Comment on above: Performed By: #### B 12FOL, VITAD, IRON #### [facility] [address] [address] [address] Ekta Funk Anion gap [Moles/Vol] 18.9 mmol/L Normal [facility] Comment on above: Performed By: #### B 12FOL, VITAD, IRON #### [facility] [address] [place] [address] Dr. Ekta Funk AST [Catalytic activity/Vol] 16 U/L Normal 15-37 [facility] Comment on above: Performed By: #### B 12FOL, VITAD, IRON #### [facility] [address] [place] [address] Dr. Ekta Funk Bilirubin [Mass/Vol] 0.4 mg/dL Normal 0.2-1.0 [facility] Comment on above: Performed By: #### B 12FOL, VITAD, IRON #### [facility] [address] [place] [address] Dr. Ekta Funk Calcium [Mass/Vol] 9.5 mg/dL Normal 8.5-10.1 [facility] Comment on above: Performed By: #### B 12FOL, VITAD, IRON #### [facility] [address] [place] [address] Dr. Ekta Funk Chloride [Moles/Vol] 108 mmol/L Critically high 98-107 [facility] Comment on above: Performed By: #### B 12FOL, VITAD, IRON #### [facility] [address] [place] [address] Dr. Ekta Funk CO2 [Moles/Vol] 21.1 mmol/L Normal 21.0-32.0 [facility] Comment on above: Performed By: #### B 12FOL, VITAD, IRON #### [facility] [address] [place] [address] Dr. Ekta Funk Creatinine [Mass/Vol] 2.08 mg/dL Critically high 0.55-1.02 [facility] Comment on above: Performed By: #### B 12FOL, VITAD, IRON #### [facility] [address] [place] [address] Dr. Ekta Funk EGFR-AF [place] 28 mL/min/1.73m2 Critically low >=60 [facility] Comment on above: Performed By: #### B 12FOL, VITAD, IRON #### [facility] [address] [place] [address] Dr. Ekta Funk EGFR-NON AF [place] 23 mL/min/1.73m2 Critically low >=60 [facility] Comment on above: Performed By: #### B 12FOL, VITAD, IRON #### [facility] [address] [place] [address] Dr. Ekta Funk Globulin (S) [Mass/Vol] 4.6 g/dL Normal [facility] Comment on above: Performed By: #### B 12FOL, VITAD, IRON #### [facility] [address] [place] [address] Dr. Ekta Funk Glucose [Mass/Vol] 119 mg/dL Critically high 74-106 [facility] Comment on above: Performed By: #### B 12FOL, VITAD, IRON #### [facility] [address] [place] [address] Dr. Ekta Funk Potassium [Moles/Vol] 5.0 mmol/L Normal 3.5-5.1 [facility] Comment on above: Performed By: #### B 12FOL, VITAD, IRON #### [facility] [address] [place] [address] Dr. Ekta Funk Protein [Mass/Vol] 7.3 g/dL Normal 6.4-8.2 [facility] Comment on above: Performed By: #### B 12FOL, VITAD, IRON #### [facility] [address] [place] [address] Dr. Ekta Funk Sodium [Moles/Vol] 143 mmol/L Normal 136-145 [facility] Comment on above: Performed By: #### B 12FOL, VITAD, IRON #### [facility] [address] [address] [address] Ekta Funk Urea nitrogen [Mass/Vol] 37.0 mg/dL Critically high 7.0-18.0 [facility] Comment on above: Performed By: #### B 12FOL VITAD, IRON #### [facility] [address] [place], [place] [address] Dr. Ekta Funk Urea nitrogen/Creatinine [Mass ratio] 17.8 mg/mg Normal [facility] Comment on above: Performed By: #### B 12FOL VITAD, IRON #### [facility] [address] [place], [place] [address] Dr. Ekta Funk TROPONIN, HIGH SENSITIVITYon 11-24-2022 HSTROP 14.1 pg/mL Normal 4.0-51.3 [facility] Comment on above: Result Comment: CUT- OFF POINTS HAVE BEEN ESTABLISHED BASED ON THE FOURTH UNIVERSAL DEFINITIONS OF MYOCARDIAL INFARCTION. THE UPPER REFERENCE LIMIT (URL) OF TROPONIN, DEFINED THE 99TH PERCENTILE OF cTnI DISTRIBUTION IN A REFERENCE POPULATION, HAS BEEN CONFIRMED THE DECISION THRESHOLD FOR RI DIAGNOSIS. Performed By: #### B 12FOL VITAD, IRON #### [facility] [address] [address] [address] Ekta Funk TSHon 11-24-2022 TSH 1.184 uIU/mL Normal 0.358-3.740 [facility] Comment on above: Performed By: #### B ElviraFOLNENOAD, IRON #### [facility] [id number] Ekta Funk XR CHEST 1 Von [...] NATALIIA TATE Date: 2022-11-24 11:00 Normal [facility] BNPon 11-13-2022 Natriuretic peptide B (Bld) [Mass/Vol] 565.0 pg/mL Normal <=900.0 [facility] Comment on above: Performed By: #### I NSULIN #### [facility] [address] [place] [address] Dr. Ekta Funk CBC AUTO DIFFon 11-13-2022 BASO # 0.1 103/ul Normal 0.0-0.1 [facility] Comment on above: Performed By: #### C BC #### [facility] [address] [place] [address] Dr. Ekta Funk Basophils/100 WBC (Bld) 0.6 % Normal 0.2-2.0 [facility] Comment on above: Performed By: #### C BC #### [facility] [address] [place] [address] Dr. Ekta Funk EO # 0.4 103/ul Normal 0.0-0.7 [facility] Comment on above: Performed By: #### C BC #### [facility] [address] [place] [address] Dr. Ekta Funk Eosinophils/100 WBC (Bld) 3.7 % Normal 0.9-7.0 [facility] Comment on above: Performed By: #### C BC #### [facility] [address] [place] [address] Dr. Ekta Funk Erythrocyte distribution width (RBC) [Ratio] 13.2 % Normal 11.0-15.0 [facility] Comment on above: Performed By: #### C BC #### [facility] [address] [place] [address] Dr. Ekta Funk Hematocrit (Bld) [Volume fraction] 36.7 % Normal 36.0-48.0 [facility] Comment on above: Performed By: #### C BC #### [facility] [address] [place] [address] Dr. Ekta Funk Hemoglobin (Bld) [Mass/Vol] 12.4 g/dL Normal 12.0-16.0 [facility] Comment on above: Performed By: #### C BC #### [facility] [address] [place] [address] Dr. Ekta Funk IG # 0.10 10e3/ul Critically high 0.00-0.03 [facility] Comment on above: Performed By: #### C BC #### [facility] [address] [place] [address] Dr. Ekta Funk IG % 1.0 % Critically high 0.0-0.5 [facility] Comment on above: Performed By: #### C BC #### [facility] [address] [place] [address] Dr. Ekta Funk LYMPH # 1.5 103/ul Normal 1.2-3.8 [facility] Comment on above: Performed By: #### C BC #### [facility] [address] [place] [address] Dr. Ekta Funk Lymphocytes/100 WBC (Bld) 14.9 % Critically low 20.5-60.0 [facility] Comment on above: Performed By: #### C BC #### [facility] [address] [place] [address] Dr. Ekta Funk MANUAL DIFF REQ NO Normal [facility] Comment on above: Performed By: #### C BC #### [facility] [address] [place] [address] Dr. Ekta Funk MCH (RBC) [Entitic mass] 32.8 pg Normal 26.7-34.0 [facility] Comment on above: Performed By: #### C BC #### [facility] [address] [place] [address] Dr. Ekta Funk MCHC (RBC) [Mass/Vol] 33.8 g/dL Normal 29.9-35.2 [facility] Comment on above: Performed By: #### C BC #### [facility] [address] [place] [address] Dr. Ekta Funk MCV (RBC) [Entitic vol] 97.1 fL Normal 81.0-99.0 [facility] Comment on above: Performed By: #### C BC #### [facility] [address] [address] [address] Ekta Funk MONO # 0.8 103/ul Normal 0.3-0.8 [facility] Comment on above: Performed By: #### C BC #### [facility] [address] [address] [address] Ekta Funk Monocytes/100 WBC (Bld) 7.7 % Normal 1.7-12.0 [facility] Comment on above: Performed By: #### C BC #### [facility] [address] [address] [address] Ekta Funk NEUT # 7.3 103/ul Critically high 1.4-6.5 [facility] Comment on above: Performed By: #### C BC #### [facility] [address] [place] [address] Dr. Ekta Funk Neutrophils/100 WBC (Bld) 72.1 % Normal 43.0-75.0 [facility] Comment on above: Performed By: #### C BC #### [facility] [address] [address] [address] Ekta Funk Platelet mean volume (Bld) [Entitic vol] 9.4 fL Critically low 9.5-13.5 [facility] Comment on above: Performed By: #### C BC #### [facility] [address] [place] [address] Dr. Ekta Funk PLT 251 103/ul Normal 150-450 [facility] Comment on above: Performed By: #### C BC #### [facility] [address] [place] [address] Dr. Ekta Funk RBC 3.78 106/ul Critically low 4.20-5.40 [facility] Comment on above: Performed By: #### C BC #### [facility] [address] [address] [address] Ekta Funk WBC 10.1 103/ul Normal 4.0-11.0 [facility] Comment on above: Performed By: #### C BC #### [facility] [address] [address] [address] Ekta Funk FREE THYROXINE INDEX T7on FTI 2.73 Normal 1.30-4.50 [facility] Comment on above: Performed By: #### I NSULIN #### [facility] [address] [address] [address] Ekta Funk T3U 35.0 % Normal 30.0-39.0 [facility] Comment on above: Performed By: #### I NSULIN #### [facility] [address] [address] [address] Ekta Funk T4 [Mass/Vol] 7.80 ug/dL Normal 4.80-13.90 [facility] Comment on above: Performed By: #### I NSULIN #### [facility] [address] [place] [address] Dr. Ekta Funk GLYCOHEMOGLOBIN A1Con 2022 ADA RECOMMENDATION SEE BELOW Normal [facility] Comment on above: Result Comment: ADA RECOMMENDED LIMIT 4.0 - 6.0 ADA THERAPEUTIC TARGET < 7.0 ACTION SUGGESTED > 7.0 Performed By: #### B 12FOL, VITAD, IRON #### [facility] [address] [address] [address] Ekta Funk Glucose [Mass/Vol] 134 mg/dL Normal [facility] Comment on above: Performed By: #### B 12FOL, VITAD, IRON #### [facility] [address] [address] [address] Ekta Funk HbA1c (Bld) [Mass fraction] 6.3 % Critically high 4.5-6.2 [facility] Comment on above: Performed By: #### B 12FOL, VITAD, IRON #### [facility] [address] [place] [address] Dr. Ekta Funk IRONon 11-13-2022 Iron [Mass/Vol] 55.0 ug/dL Normal 50.0-170.0 [facility] Comment on above: Performed By: #### B 12FOL, VITAD, IRON #### [facility] [address] [address] [address] Ekta Funk LIPID PROFILEon 11-13-2022 CHOL-HDL RATIO NORM SEE BELOW Normal [facility] Comment on above: Result Comment: 3.3 - 4.4 LOW RISK 4.4 - 7.1 AVERAGE RISK 7.1 - 11.0 MODERATE RISK >11.0 HIGH RISK Performed By: #### I NSULIN #### [facility] [address] [address] [address] Ekta Funk Cholesterol [Mass/Vol] 294 mg/dL Critically high <=200 [facility] Comment on above: Performed By: #### I NSULIN #### [facility] [address] [address] [address] Ekta Funk Cholesterol in HDL [Mass/Vol] 64 mg/dL Critically high 40-60 [facility] Comment on above: Performed By: #### I NSULIN #### [facility] [address] [address] [address] Ekta Funk Cholesterol in LDL [Mass/Vol] 197.2 mg/dL Normal [facility] Comment on above: Performed By: #### I NSULIN #### [facility] [address] [address] [address] Ekta Funk Cholesterol.total/Ch olesterol in HDL [Mass ratio] 4.6 {ratio} Normal [facility] Comment on above: Performed By: #### I NSULIN #### [facility] [address] [address] [address] Ekta Funk HDL NORMAL > or = 60 mg/dl - LO W CARDIOVASCULAR RISK <40 mg/dl - HIGH CARDIOVASCULAR RISK Normal [facility] Comment on above: Performed By: #### I NSULIN #### [facility] [address] [address] [address] Ekta Funk LDL CALC NORMAL SEE BELOW Normal [facility] Comment on above: Result Comment: <100 mg/dl OPTIMAL 100 - 129 mg/dl NEAR OR ABOVE OPTIMAL 130 - 159 mg/dl BORDERLINE HIGH 160 - 189 mg/dl HIGH >190 mg/dl VERY HIGH Performed By: #### I NSULIN #### [facility] [address] [address] [address] Ekta Funk Triglyceride [Mass/Vol] 164 mg/dL Critically high <=150 [facility] Comment on above: Performed By: #### I NSULIN #### [facility] [address] [address] [address] Ekta Funk VLDL CALC 32.8 mg/dL Normal [facility] Comment on above: Performed By: #### I NSULIN #### [facility] [address] [place] [address] Dr. Ekta Funk PROF 14(COMP METB)on 023 Albumin [Mass/Vol] 3.0 g/dL Critically low 3.4-5.0 [facility] Comment on above: Performed By: #### I NSULIN #### [facility] [address] [place] [address] Dr. Ekta Funk Albumin/Globulin [Mass ratio] 0.6 {ratio} Normal [facility] Comment on above: Performed By: #### I NSULIN #### [facility] [address] [place] [address] Dr. Ekta Funk ALP [Catalytic activity/Vol] 92 U/L Normal 46-116 [facility] Comment on above: Performed By: #### I NSULIN #### [facility] [address] [place] [address] Dr. Ekta Funk ALT [Catalytic activity/Vol] 26 U/L Normal 14-59 [facility] Comment on above: Performed By: #### I NSULIN #### [facility] [address] [place] [address] Dr. Ekta Funk Anion gap [Moles/Vol] 16.2 mmol/L Normal [facility] Comment on above: Performed By: #### I NSULIN #### [facility] [address] [place] [address] Dr. Ekta Funk AST [Catalytic activity/Vol] 16 U/L Normal 15-37 [facility] Comment on above: Performed By: #### I NSULIN #### [facility] [address] [address] [address] Ekta Funk Bilirubin [Mass/Vol] 0.5 mg/dL Normal 0.2-1.0 [facility] Comment on above: Performed By: #### I NSULIN #### [facility] [address] [place] [address] Dr. Ekta Funk Calcium [Mass/Vol] 9.7 mg/dL Normal 8.5-10.1 [facility] Comment on above: Performed By: #### I NSULIN #### [facility] [address] [place] [address] Dr. Ekta Funk Chloride [Moles/Vol] 105 mmol/L Normal 98-107 [facility] Comment on above: Performed By: #### I NSULIN #### [facility] [address] [place] [address] Dr. Ekta Funk CO2 [Moles/Vol] 24.9 mmol/L Normal 21.0-32.0 [facility] Comment on above: Performed By: #### I NSULIN #### [facility] [address] [place] [address] Dr. Ekta Funk Creatinine [Mass/Vol] 2.18 mg/dL Critically high 0.55-1.02 [facility] Comment on above: Performed By: #### I NSULIN #### [facility] [address] [place] [address] Dr. Ekta Funk EGFR-AF [place] 27 mL/min/1.73m2 Critically low >=60 [facility] Comment on above: Performed By: #### I NSULIN #### [facility] [address] [place] [address] Dr. Ekta Funk EGFR-NON AF [place] 22 mL/min/1.73m2 Critically low >=60 [facility] Comment on above: Performed By: #### I NSULIN #### [facility] [address] [place] [address] Dr. Ekta Funk Globulin (S) [Mass/Vol] 4.7 g/dL Normal [facility] Comment on above: Performed By: #### I NSULIN #### [facility] [address] [address] [address] Ekta Funk Glucose [Mass/Vol] 114 mg/dL Critically high 74-106 [facility] Comment on above: Performed By: #### I NSULIN #### [facility] [address] [address] [address] Ekta Funk Potassium [Moles/Vol] 5.1 mmol/L Normal 3.5-5.1 [facility] Comment on above: Performed By: #### I NSULIN #### [facility] [address] [address] [address] Ekta Funk Protein [Mass/Vol] 7.7 g/dL Normal 6.4-8.2 [facility] Comment on above: Performed By: #### I NSULIN #### [facility] [address] [address] [address] Ekta Funk Sodium [Moles/Vol] 141 mmol/L Normal 136-145 [facility] Comment on above: Performed By: #### I NSULIN #### [facility] [address] [address] [address] Ekta Funk Urea nitrogen [Mass/Vol] 51.0 mg/dL Critically high 7.0-18.0 [facility] Comment on above: Performed By: #### I NSULIN #### [facility] [address] [address] [address] Ekta Funk Urea nitrogen/Creatinine [Mass ratio] 23.4 mg/mg Normal [facility] Comment on above: Performed By: #### I NSULIN #### [facility] [address] [address] [address] Ekta Funk TSHon 11-13-2022 TSH 0.935 uIU/mL Normal 0.358-3.740 [facility] Comment on above: Performed By: #### I NSULIN #### [facility] [address] [address] [address] Ekta Funk XR CHEST 2 Von [...] GODWIN BECK Date: 2022-11-13 15:40 Normal [facility] PROF 14(COMP METB)on 023 Albumin [Mass/Vol] 3.0 g/dL Critically low 3.4-5.0 [facility] Comment on above: Performed By: #### B 12FOL, VITAD, IRON #### [facility] [address] [place] [address] Dr. Ekta Funk Albumin/Globulin [Mass ratio] 0.7 {ratio} Normal [facility] Comment on above: Performed By: #### B 12FOL, VITAD, IRON #### [facility] [address] [place] [address] Dr. Ekta Funk ALP [Catalytic activity/Vol] 89 U/L Normal 46-116 [facility] Comment on above: Performed By: #### B 12FOL, VITAD, IRON #### [facility] [address] [place] [address] Dr. Ekta Funk ALT [Catalytic activity/Vol] 29 U/L Normal 14-59 [facility] Comment on above: Performed By: #### B 12FOL, VITAD, IRON #### [facility] [address] [place] [address] Dr. Ekta Funk Anion gap [Moles/Vol] 15.2 mmol/L Normal [facility] Comment on above: Performed By: #### B 12FOL, VITAD, IRON #### [facility] [address] [place] [address] Dr. Ekta Funk AST [Catalytic activity/Vol] 14 U/L Critically low 15-37 [facility] Comment on above: Performed By: #### B 12FOL, VITAD, IRON #### [facility] [address] [address] [address] Ekta Funk Bilirubin [Mass/Vol] 0.4 mg/dL Normal 0.2-1.0 [facility] Comment on above: Performed By: #### B 12FOL, VITAD, IRON #### [facility] [address] [place] [address] Dr. Ekta Funk Calcium [Mass/Vol] 9.1 mg/dL Normal 8.5-10.1 [facility] Comment on above: Performed By: #### B 12FOL, VITAD, IRON #### [facility] [address] [place] [address] Dr. Ekta Funk Chloride [Moles/Vol] 106 mmol/L Normal 98-107 [facility] Comment on above: Performed By: #### B 12FOL, VITAD, IRON #### [facility] [address] [place] [address] Dr. Ekta Funk CO2 [Moles/Vol] 24.2 mmol/L Normal 21.0-32.0 [facility] Comment on above: Performed By: #### B 12FOL, VITAD, IRON #### [facility] [address] [place] [address] Dr. Ekta Funk Creatinine [Mass/Vol] 1.89 mg/dL Critically high 0.55-1.02 [facility] Comment on above: Performed By: #### B 12FOL, VITAD, IRON #### [facility] [address] [address] [address] Ekta Funk EGFR-AF [place] 32 mL/min/1.73m2 Critically low >=60 [facility] Comment on above: Performed By: #### B 12FOL, VITAD, IRON #### [facility] [address] [place] [address] Dr. Ekta Funk EGFR-NON AF [place] 26 mL/min/1.73m2 Critically low >=60 [facility] Comment on above: Performed By: #### B 12FOL, VITAD, IRON #### [facility] [address] [place] [address] Dr. Ekta Funk Globulin (S) [Mass/Vol] 4.1 g/dL Normal [facility] Comment on above: Performed By: #### B 12FOL, VITAD, IRON #### [facility] [address] [place] [address] Dr. Ekta Funk Glucose [Mass/Vol] 108 mg/dL Critically high 74-106 [facility] Comment on above: Performed By: #### B 12FOL, VITAD, IRON #### [facility] [address] [place] [address] Dr. Ekta Funk Potassium [Moles/Vol] 4.4 mmol/L Normal 3.5-5.1 [facility] Comment on above: Performed By: #### B 12FOL, VITAD, IRON #### [facility] [address] [place] [address] Dr. Ekta Funk Protein [Mass/Vol] 7.1 g/dL Normal 6.4-8.2 [facility] Comment on above: Performed By: #### B 12FOL, VITAD, IRON #### [facility] [address] [place] [address] Dr. Ekta Funk Sodium [Moles/Vol] 141 mmol/L Normal 136-145 [facility] Comment on above: Performed By: #### B 12FOL, VITAD, IRON #### [facility] [address] [place] [address] Dr. Ekta Funk Urea nitrogen [Mass/Vol] 40.0 mg/dL Critically high 7.0-18.0 [facility] Comment on above: Performed By: #### B 12FOL, VITAD, IRON #### [facility] [address] [address] [address] Ekta Funk Urea nitrogen/Creatinine [Mass ratio] 21.2 mg/mg Normal [facility] Comment on above: Performed By: #### B 12FOL, VITAD, IRON #### [facility] [address] [place] [address] Dr. Ekta Funk BNPon 10-23-2022 Natriuretic peptide B (Bld) [Mass/Vol] 507.0 pg/mL Normal <=900.0 [facility] Comment on above: Performed By: #### B 12FOL, VITAD, IRON #### [facility] [address] [place] [address] Dr. Ekta Funk CBC AUTO DIFFon 10-23-2022 BASO # 0.0 103/ul Normal 0.0-0.1 [facility] Comment on above: Performed By: #### C BC #### [facility] [address] [place] [address] Dr. Ekta Funk Basophils/100 WBC (Bld) 0.2 % Normal 0.2-2.0 [facility] Comment on above: Performed By: #### C BC #### [facility] [address] [place] [address] Dr. Ekta Funk EO # 0.1 103/ul Normal 0.0-0.7 [facility] Comment on above: Performed By: #### C BC #### [facility] [address] [place] [address] Dr. Ekta Funk Eosinophils/100 WBC (Bld) 1.1 % Normal 0.9-7.0 [facility] Comment on above: Performed By: #### C BC #### [facility] [address] [place] [address] Dr. Ekta Funk Erythrocyte distribution width (RBC) [Ratio] 12.8 % Normal 11.0-15.0 [facility] Comment on above: Performed By: #### C BC #### [facility] [address] [place] [address] Dr. Ekta Funk Hematocrit (Bld) [Volume fraction] 37.1 % Normal 36.0-48.0 [facility] Comment on above: Performed By: #### C BC #### [facility] [address] [place] [address] Dr. Ekta Funk Hemoglobin (Bld) [Mass/Vol] 13.0 g/dL Normal 12.0-16.0 [facility] Comment on above: Performed By: #### C BC #### [facility] [address] [place] [address] Dr. Ekta Funk IG # 0.11 10e3/ul Critically high 0.00-0.03 [facility] Comment on above: Performed By: #### C BC #### [facility] [address] [place] [address] Dr. Ekta Funk IG % 1.1 % Critically high 0.0-0.5 [facility] Comment on above: Performed By: #### C BC #### [facility] [address] [place] [address] Dr. Ekta Funk LYMPH # 1.6 103/ul Normal 1.2-3.8 [facility] Comment on above: Performed By: #### C BC #### [facility] [address] [place] [address] Dr. Ekta Funk Lymphocytes/100 WBC (Bld) 15.6 % Critically low 20.5-60.0 [facility] Comment on above: Performed By: #### C BC #### [facility] [address] [place] [address] Dr. Ekta Funk MANUAL DIFF REQ NO Normal [facility] Comment on above: Performed By: #### C BC #### [facility] [address] [place] [address] Dr. Ekta Funk MCH (RBC) [Entitic mass] 32.8 pg Normal 26.7-34.0 [facility] Comment on above: Performed By: #### C BC #### [facility] [address] [place] [address] Dr. Ekta Funk MCHC (RBC) [Mass/Vol] 35.0 g/dL Normal 29.9-35.2 [facility] Comment on above: Performed By: #### C BC #### [facility] [address] [place] [address] Dr. Ekta Funk MCV (RBC) [Entitic vol] 93.7 fL Normal 81.0-99.0 [facility] Comment on above: Performed By: #### C BC #### [facility] [address] [place] [address] Dr. Ekta Funk MONO # 0.9 103/ul Critically high 0.3-0.8 [facility] Comment on above: Performed By: #### C BC #### [facility] [address] [place] [address] Dr. Ekta Funk Monocytes/100 WBC (Bld) 8.3 % Normal 1.7-12.0 [facility] Comment on above: Performed By: #### C BC #### [facility] [address] [place] [address] Dr. Ekta Funk NEUT # 7.5 103/ul Critically high 1.4-6.5 [facility] Comment on above: Performed By: #### C BC #### [facility] [address] [place] [address] Dr. Ekta Funk Neutrophils/100 WBC (Bld) 73.7 % Normal 43.0-75.0 [facility] Comment on above: Performed By: #### C BC #### [facility] [address] [place] [address] Dr. Ekta Funk Platelet mean volume (Bld) [Entitic vol] 10.3 fL Normal 9.5-13.5 [facility] Comment on above: Performed By: #### C BC #### [facility] [address] [place] [address] Dr. Ekta Funk PLT 135 103/ul Critically low 150-450 [facility] Comment on above: Performed By: #### C BC #### [facility] [address] [place] [address] Dr. Ekta Funk RBC 3.96 106/ul Critically low 4.20-5.40 [facility] Comment on above: Performed By: #### C BC #### [facility] [address] [place] [address] Dr. Ekta Funk WBC 10.2 103/ul Normal 4.0-11.0 [facility] Comment on above: Performed By: #### C BC #### [facility] [address] [place] [address] Dr. Ekta Funk PROF 14(COMP METB)on 023 Albumin [Mass/Vol] 2.7 g/dL Critically low 3.4-5.0 [facility] Comment on above: Performed By: #### B 12FOL, VITAD, IRON #### [facility] [address] [place] [address] Dr. Ekta Funk Albumin/Globulin [Mass ratio] 0.8 {ratio} Normal [facility] Comment on above: Performed By: #### B 12FOL, VITAD, IRON #### [facility] [address] [place] [address] Dr. Ekta Funk ALP [Catalytic activity/Vol] 74 U/L Normal 46-116 [facility] Comment on above: Performed By: #### B 12FOL, VITAD, IRON #### [facility] [address] [place] [address] Dr. Ekta Funk ALT [Catalytic activity/Vol] 26 U/L Normal 14-59 [facility] Comment on above: Performed By: #### B 12FOL, VITAD, IRON #### [facility] [address] [place] [address] Dr. Ekta Funk Anion gap [Moles/Vol] 16.5 mmol/L Normal [facility] Comment on above: Performed By: #### B 12FOL, VITAD, IRON #### [facility] [address] [place] [address] Dr. Ekta Funk AST [Catalytic activity/Vol] 15 U/L Normal 15-37 [facility] Comment on above: Performed By: #### B 12FOL, VITAD, IRON #### [facility] [address] [place] [address] Dr. Ekta Funk Bilirubin [Mass/Vol] 0.4 mg/dL Normal 0.2-1.0 [facility] Comment on above: Performed By: #### B 12FOL, VITAD, IRON #### [facility] [address] [place] [address] Dr. Ekta Funk Calcium [Mass/Vol] 8.1 mg/dL Critically low 8.5-10.1 [facility] Comment on above: Performed By: #### B 12FOL, VITAD, IRON #### [facility] [address] [address] [address] Ekta Funk Chloride [Moles/Vol] 96 mmol/L Critically low 98-107 [facility] Comment on above: Performed By: #### B 12FOL, VITAD, IRON #### [facility] [address] [place] [address] Dr. Ekta Funk CO2 [Moles/Vol] 26.1 mmol/L Normal 21.0-32.0 [facility] Comment on above: Performed By: #### B 12FOL, VITAD, IRON #### [facility] [address] [place] [address] Dr. Ekta Funk Creatinine [Mass/Vol] 3.28 mg/dL Critically high 0.55-1.02 [facility] Comment on above: Performed By: #### B 12FOL, VITAD, IRON #### [facility] [address] [place] [address] Dr. Ekta Funk EGFR-AF [place] 17 mL/min/1.73m2 Critically low >=60 [facility] Comment on above: Performed By: #### B 12FOL, VITAD, IRON #### [facility] [address] [place] [address] Dr. Ekta Funk EGFR-NON AF [place] 14 mL/min/1.73m2 Critically low >=60 [facility] Comment on above: Performed By: #### B 12FOL, VITAD, IRON #### [facility] [address] [place] [address] Dr. Ekta Funk Globulin (S) [Mass/Vol] 3.6 g/dL Normal [facility] Comment on above: Performed By: #### B 12FOL, VITAD, IRON #### [facility] [address] [place] [address] Dr. Ekta Funk Glucose [Mass/Vol] 132 mg/dL Critically high 74-106 [facility] Comment on above: Performed By: #### B 12FOL, VITAD, IRON #### [facility] [address] [place] [address] Dr. Ekta Funk Potassium [Moles/Vol] 4.6 mmol/L Normal 3.5-5.1 [facility] Comment on above: Performed By: #### B 12FOL, VITAD, IRON #### [facility] [address] [place] [address] Dr. Ekta Funk Protein [Mass/Vol] 6.3 g/dL Critically low 6.4-8.2 [facility] Comment on above: Performed By: #### B 12FOL, VITAD, IRON #### [facility] [address] [place] [address] Dr. Ekta Funk Sodium [Moles/Vol] 134 mmol/L Critically low 136-145 [facility] Comment on above: Performed By: #### B 12FOL, VITAD, IRON #### [facility] [address] [place] [address] Dr. Ekta Funk Urea nitrogen [Mass/Vol] 74.0 mg/dL Critically high 7.0-18.0 [facility] Comment on above: Performed By: #### B 12FOL, VITAD, IRON #### [facility] [address] [place] [address] Dr. Ekta Funk Urea nitrogen/Creatinine [Mass ratio] 22.6 mg/mg Normal [facility] Comment on above: Performed By: #### B 12FOL, VITAD, IRON #### [facility] [address] [place] [address] Dr. Ekta Funk BNPon 10-22-2022 Natriuretic peptide B (Bld) [Mass/Vol] 1411.0 pg/mL Critically high <=900.0 [facility] Comment on above: Performed By: #### B 12FOL, VITAD, IRON #### [facility] [address] [place] [address] Dr. Ekta Funk CBC AUTO DIFFon 10-22-2022 BASO # 0.0 103/ul Normal 0.0-0.1 [facility] Comment on above: Performed By: #### B 12FOL, VITAD, IRON #### [facility] [address] [place] [address] Dr. Ekta Funk Basophils/100 WBC (Bld) 0.3 % Normal 0.2-2.0 [facility] Comment on above: Performed By: #### B 12FOL, VITAD, IRON #### [facility] [address] [place] [address] Dr. Ekta Funk EO # 0.1 103/ul Normal 0.0-0.7 [facility] Comment on above: Performed By: #### B 12FOL, VITAD, IRON #### [facility] [address] [place] [address] Dr. Ekta Funk Eosinophils/100 WBC (Bld) 0.6 % Critically low 0.9-7.0 [facility] Comment on above: Performed By: #### B 12FOL, VITAD, IRON #### [facility] [address] [place] [address] Dr. Ekta Funk Erythrocyte distribution width (RBC) [Ratio] 12.9 % Normal 11.0-15.0 [facility] Comment on above: Performed By: #### B 12FOL, VITAD, IRON #### [facility] [address] [place] [address] Dr. Ekta Funk Hematocrit (Bld) [Volume fraction] 40.8 % Normal 36.0-48.0 [facility] Comment on above: Performed By: #### B 12FOL, VITAD, IRON #### [facility] [address] [place] [address] Dr. Ekta Funk Hemoglobin (Bld) [Mass/Vol] 14.0 g/dL Normal 12.0-16.0 [facility] Comment on above: Performed By: #### B 12FOL, VITAD, IRON #### [facility] [address] [place] [address] Dr. Ekta Funk IG # 0.09 10e3/ul Critically high 0.00-0.03 [facility] Comment on above: Performed By: #### B 12FOL, VITAD, IRON #### [facility] [address] [place] [address] Dr. Ekta Funk IG % 0.8 % Critically high 0.0-0.5 [facility] Comment on above: Performed By: #### B 12FOL, VITAD, IRON #### [facility] [address] [place] [address] Dr. Ekta Funk LYMPH # 1.8 103/ul Normal 1.2-3.8 [facility] Comment on above: Performed By: #### B 12FOL, VITAD, IRON #### [facility] [address] [place] [address] Dr. Ekta Funk Lymphocytes/100 WBC (Bld) 16.2 % Critically low 20.5-60.0 [facility] Comment on above: Performed By: #### B 12FOL, VITAD, IRON #### [facility] [address] [place] [address] Dr. Ekta Funk MANUAL DIFF REQ NO Normal [facility] Comment on above: Performed By: #### B 12FOL, VITAD, IRON #### [facility] [address] [place] [address] Dr. Ekta Funk MCH (RBC) [Entitic mass] 32.3 pg Normal 26.7-34.0 [facility] Comment on above: Performed By: #### B 12FOL, VITAD, IRON #### [facility] [address] [place] [address] Dr. Ekta Funk MCHC (RBC) [Mass/Vol] 34.3 g/dL Normal 29.9-35.2 [facility] Comment on above: Performed By: #### B 12FOL, VITAD, IRON #### [facility] [address] [place] [address] Dr. Ekta Funk MCV (RBC) [Entitic vol] 94.2 fL Normal 81.0-99.0 [facility] Comment on above: Performed By: #### B 12FOL, VITAD, IRON #### [facility] [address] [place] [address] Dr. Ekta Funk MONO # 0.8 103/ul Normal 0.3-0.8 [facility] Comment on above: Performed By: #### B 12FOL, VITAD, IRON #### [facility] [address] [place] [address] Dr. Ekta Funk Monocytes/100 WBC (Bld) 7.3 % Normal 1.7-12.0 [facility] Comment on above: Performed By: #### B 12FOL, VITAD, IRON #### [facility] [address] [place] [address] Dr. Ekta Funk NEUT # 8.1 103/ul Critically high 1.4-6.5 [facility] Comment on above: Performed By: #### B 12FOL, VITAD, IRON #### [facility] [address] [place] [address] Dr. Ekta Funk Neutrophils/100 WBC (Bld) 74.8 % Normal 43.0-75.0 [facility] Comment on above: Performed By: #### B 12FOL, VITAD, IRON #### [facility] [address] [place] [address] Dr. Ekta Funk Platelet mean volume (Bld) [Entitic vol] 9.8 fL Normal 9.5-13.5 [facility] Comment on above: Performed By: #### B 12FOL, VITAD, IRON #### [facility] [address] [place] [address] Dr. Ekta Funk PLT 226 103/ul Normal 150-450 [facility] Comment on above: Performed By: #### B 12FOL, VITAD, IRON #### [facility] [address] [place] [address] Dr. Ekta Funk RBC 4.33 106/ul Normal 4.20-5.40 [facility] Comment on above: Performed By: #### B 12FOL, VITAD, IRON #### [facility] [address] [place] [address] Dr. Ekta Funk WBC 10.9 103/ul Normal 4.0-11.0 [facility] Comment on above: Performed By: #### B 12FOL, VITAD, IRON #### [facility] [address] [place] [address] Dr. Ekta Funk PROF 14(COMP METB)on 023 Albumin [Mass/Vol] 3.1 g/dL Critically low 3.4-5.0 [facility] Comment on above: Performed By: #### B 12FOL, VITAD, IRON #### [facility] [address] [place] [address] Dr. Ekta Funk Albumin/Globulin [Mass ratio] 0.7 {ratio} Normal [facility] Comment on above: Performed By: #### B 12FOL, VITAD, IRON #### [facility] [address] [place] [address] Dr. Ekta Funk ALP [Catalytic activity/Vol] 81 U/L Normal 46-116 [facility] Comment on above: Performed By: #### B 12FOL, VITAD, IRON #### [facility] [address] [place] [address] Dr. Ekta Funk ALT [Catalytic activity/Vol] 30 U/L Normal 14-59 [facility] Comment on above: Performed By: #### B 12FOL, VITAD, IRON #### [facility] [address] [place] [address] Dr. Ekta Funk Anion gap [Moles/Vol] 17.3 mmol/L Normal [facility] Comment on above: Performed By: #### B 12FOL, VITAD, IRON #### [facility] [address] [place] [address] Dr. Ekta Funk AST [Catalytic activity/Vol] 11 U/L Critically low 15-37 [facility] Comment on above: Performed By: #### B 12FOL, VITAD, IRON #### [facility] [address] [place] [address] Dr. Ekta Funk Bilirubin [Mass/Vol] 0.5 mg/dL Normal 0.2-1.0 [facility] Comment on above: Performed By: #### B 12FOL, VITAD, IRON #### [facility] [address] [address] [address] Ekta Funk Calcium [Mass/Vol] 8.6 mg/dL Normal 8.5-10.1 [facility] Comment on above: Performed By: #### B 12FOL, VITAD, IRON #### [facility] [address] [place] [address] Dr. Ekta Funk Chloride [Moles/Vol] 95 mmol/L Critically low 98-107 [facility] Comment on above: Performed By: #### B 12FOL, VITAD, IRON #### [facility] [address] [address] [address] Ekta Funk CO2 [Moles/Vol] 27.3 mmol/L Normal 21.0-32.0 [facility] Comment on above: Performed By: #### B 12FOL, VITAD, IRON #### [facility] [address] [place] [address] Dr. Ekta Funk Creatinine [Mass/Vol] 3.17 mg/dL Critically high 0.55-1.02 [facility] Comment on above: Performed By: #### B 12FOL, VITAD, IRON #### [facility] [address] [address] [address] Ekta Funk EGFR-AF [place] 17 mL/min/1.73m2 Critically low >=60 [facility] Comment on above: Performed By: #### B 12FOL, VITAD, IRON #### [facility] [address] [place] [address] Dr. Ekta Funk EGFR-NON AF [place] 14 mL/min/1.73m2 Critically low >=60 [facility] Comment on above: Performed By: #### B 12FOL, VITAD, IRON #### [facility] [address] [place] [address] Dr. Ekta Funk Globulin (S) [Mass/Vol] 4.6 g/dL Normal [facility] Comment on above: Performed By: #### B 12FOL, VITAD, IRON #### [facility] [address] [place] [address] Dr. Ekta Funk Glucose [Mass/Vol] 139 mg/dL Critically high 74-106 [facility] Comment on above: Performed By: #### B 12FOL, VITAD, IRON #### [facility] [address] [place] [address] Dr. Ekta Funk Potassium [Moles/Vol] 4.6 mmol/L Normal 3.5-5.1 [facility] Comment on above: Performed By: #### B 12FOL, VITAD, IRON #### [facility] [address] [place] [address] Dr. Ekta Funk Protein [Mass/Vol] 7.7 g/dL Normal 6.4-8.2 [facility] Comment on above: Performed By: #### B 12FOL, VITAD, IRON #### [facility] [address] [place] [address] Dr. Ekta Funk Sodium [Moles/Vol] 135 mmol/L Critically low 136-145 [facility] Comment on above: Performed By: #### B 12FOL, VITAD, IRON #### [facility] [address] [place] [address] Dr. Ekta Funk Urea nitrogen [Mass/Vol] 73.0 mg/dL Critically high 7.0-18.0 [facility] Comment on above: Performed By: #### B 12FOL, VITAD, IRON #### [facility] [address] [place] [address] Dr. Ekta Funk Urea nitrogen/Creatinine [Mass ratio] 23.0 mg/mg Normal [facility] Comment on above: Performed By: #### B 12FOL, VITAD, IRON #### [facility] [address] [place] [address] Dr. Ekta uFnk BNPon 10-21-2022 Natriuretic peptide B (Bld) [Mass/Vol] 2007.0 pg/mL Critically high <=900.0 [facility] Comment on above: Performed By: #### C MP #### [facility] [address] [place] [address] Dr. Ekta Funk CBC AUTO DIFFon 02-11-2023 BASO # 0.0 103/ul Normal 0.0-0.1 [facility] Comment on above: Performed By: #### C BC #### [facility] [address] [place] [address] Dr. Ekta Funk Basophils/100 WBC (Bld) 0.2 % Normal 0.2-2.0 [facility] Comment on above: Performed By: #### C BC #### [facility] [address] [place] [address] Dr. Ekta Funk EO # 0.1 103/ul Normal 0.0-0.7 [facility] Comment on above: Performed By: #### C BC #### [facility] [address] [place] [address] Dr. Ekta Funk Eosinophils/100 WBC (Bld) 0.9 % Normal 0.9-7.0 [facility] Comment on above: Performed By: #### C BC #### [facility] [address] [place] [address] Dr. Ekta Funk Erythrocyte distribution width (RBC) [Ratio] 12.8 % Normal 11.0-15.0 [facility] Comment on above: Performed By: #### C BC #### [facility] [address] [place] [address] Dr. Ekta Funk Hematocrit (Bld) [Volume fraction] 38.8 % Normal 36.0-48.0 [facility] Comment on above: Performed By: #### C BC #### [facility] [address] [place] [address] Dr. Ekta Funk Hemoglobin (Bld) [Mass/Vol] 13.3 g/dL Normal 12.0-16.0 [facility] Comment on above: Performed By: #### C BC #### [facility] [address] [place] [address] Dr. Ekta Funk IG # 0.08 10e3/ul Critically high 0.00-0.03 [facility] Comment on above: Performed By: #### C BC #### [facility] [address] [place] [address] Dr. Ekta Funk IG % 0.8 % Critically high 0.0-0.5 [facility] Comment on above: Performed By: #### C BC #### [facility] [address] [place] [address] Dr. Ekta Funk LYMPH # 1.7 103/ul Normal 1.2-3.8 [facility] Comment on above: Performed By: #### C BC #### [facility] [address] [place] [address] Dr. Ekta Funk Lymphocytes/100 WBC (Bld) 17.3 % Critically low 20.5-60.0 [facility] Comment on above: Performed By: #### C BC #### [facility] [address] [place] [address] Dr. Ekta Funk MANUAL DIFF REQ NO Normal [facility] Comment on above: Performed By: #### C BC #### [facility] [address] [place] [address] Dr. Ekta Funk MCH (RBC) [Entitic mass] 32.1 pg Normal 26.7-34.0 [facility] Comment on above: Performed By: #### C BC #### [facility] [address] [place] [address] Dr. Ekta Funk MCHC (RBC) [Mass/Vol] 34.3 g/dL Normal 29.9-35.2 [facility] Comment on above: Performed By: #### C BC #### [facility] [address] [place] [address] Dr. Ekta Funk MCV (RBC) [Entitic vol] 93.7 fL Normal 81.0-99.0 [facility] Comment on above: Performed By: #### C BC #### [facility] [address] [place] [address] Dr. Ekta Funk MONO # 0.6 103/ul Normal 0.3-0.8 [facility] Comment on above: Performed By: #### C BC #### [facility] [address] [place] [address] Dr. Ekta Funk Monocytes/100 WBC (Bld) 6.4 % Normal 1.7-12.0 [facility] Comment on above: Performed By: #### C BC #### [facility] [address] [address] [address] Ekta Funk NEUT # 7.4 103/ul Critically high 1.4-6.5 [facility] Comment on above: Performed By: #### C BC #### [facility] [address] [address] [address] Ekta Funk Neutrophils/100 WBC (Bld) 74.4 % Normal 43.0-75.0 [facility] Comment on above: Performed By: #### C BC #### [facility] [address] [address] [address] Ekta Funk Platelet mean volume (Bld) [Entitic vol] 9.8 fL Normal 9.5-13.5 [facility] Comment on above: Performed By: #### C BC #### [facility] [address] [address] [address] Ekta Funk PLT 193 103/ul Normal 150-450 [facility] Comment on above: Performed By: #### C BC #### [facility] [address] [address] [address] Ekta Funk RBC 4.14 106/ul Critically low 4.20-5.40 [facility] Comment on above: Performed By: #### C BC #### [facility] [address] [address] [address] Ekta Funk WBC 9.9 103/ul Normal 4.0-11.0 [facility] Comment on above: Performed By: #### C BC #### [facility] [address] [address] [address] Ekta Funk PROF 14(COMP METB)on 023 Albumin [Mass/Vol] 3.2 g/dL Critically low 3.4-5.0 [facility] Comment on above: Performed By: #### I NSULIN #### [facility] [address] [address] [address] Ekta Funk Albumin/Globulin [Mass ratio] 0.8 {ratio} Normal [facility] Comment on above: Performed By: #### I NSULIN #### [facility] [address] [address] [address] Ekta Funk ALP [Catalytic activity/Vol] 82 U/L Normal 46-116 [facility] Comment on above: Performed By: #### I NSULIN #### [facility] [address] [address] [address] Ekta Funk ALT [Catalytic activity/Vol] 38 U/L Normal 14-59 [facility] Comment on above: Performed By: #### I NSULIN #### [facility] [address] [address] [address] Ekta Funk Anion gap [Moles/Vol] 19.1 mmol/L Normal [facility] Comment on above: Performed By: #### I NSULIN #### [facility] [address] [place] [address] Dr. Ekta Funk AST [Catalytic activity/Vol] 19 U/L Normal 15-37 [facility] Comment on above: Performed By: #### I NSULIN #### [facility] [address] [address] [address] Ekta Funk Bilirubin [Mass/Vol] 0.4 mg/dL Normal 0.2-1.0 [facility] Comment on above: Performed By: #### I NSULIN #### [facility] [address] [address] [address] Ekta Funk Calcium [Mass/Vol] 9.2 mg/dL Normal 8.5-10.1 [facility] Comment on above: Performed By: #### I NSULIN #### [facility] [address] [address] [address] Ekta Funk Chloride [Moles/Vol] 98 mmol/L Normal 98-107 [facility] Comment on above: Performed By: #### I NSULIN #### [facility] [address] [address] [address] Ekta Funk CO2 [Moles/Vol] 26.4 mmol/L Normal 21.0-32.0 [facility] Comment on above: Performed By: #### I NSULIN #### [facility] [address] [address] [address] Ekta Funk Creatinine [Mass/Vol] 2.20 mg/dL Critically high 0.55-1.02 [facility] Comment on above: Performed By: #### I NSULIN #### [facility] [address] [address] [address] Ekta Funk EGFR-AF [place] 26 mL/min/1.73m2 Critically low >=60 [facility] Comment on above: Performed By: #### I NSULIN #### [facility] [address] [address] [address] Ekta Funk EGFR-NON AF [place] 22 mL/min/1.73m2 Critically low >=60 [facility] Comment on above: Performed By: #### I NSULIN #### [facility] [address] [address] [address] Ekta Funk Globulin (S) [Mass/Vol] 3.8 g/dL Normal [facility] Comment on above: Performed By: #### I NSULIN #### [facility] [address] [address] [address] Ekta Funk Glucose [Mass/Vol] 142 mg/dL Critically high 74-106 [facility] Comment on above: Performed By: #### I NSULIN #### [facility] [address] [address] [address] Ekta Funk Potassium [Moles/Vol] 4.5 mmol/L Normal 3.5-5.1 [facility] Comment on above: Performed By: #### I NSULIN #### [facility] [address] [address] [address] Ekta Funk Protein [Mass/Vol] 7.0 g/dL Normal 6.4-8.2 [facility] Comment on above: Performed By: #### I NSULIN #### [facility] [address] [address] [address] Ekta Funk Sodium [Moles/Vol] 139 mmol/L Normal 136-145 [facility] Comment on above: Performed By: #### I NSULIN #### [facility] [address] [address] [address] Ekta Funk Urea nitrogen [Mass/Vol] 57.0 mg/dL Critically high 7.0-18.0 [facility] Comment on above: Performed By: #### I NSULIN #### [facility] [address] [address] [address] Ekta Funk Urea nitrogen/Creatinine [Mass ratio] 25.9 mg/mg Normal [facility] Comment on above: Performed By: #### I NSULIN #### [facility] [address] [address] [address] Ekta Funk T3, TOTAL (TRIIODOTHYRONINE) on 10-21-2022 T3, TOTAL 63 ng/dL Critically low 71-180 [facility] Comment on above: Performed By: #### C MP #### [facility] [address] [address] [address] Ekta Funk XR ABD FLAT_UPon 10-21-2022 [...] by: VISHNU MARIE Date: 2022-10-21 11:42 Normal [facility] XR CHEST 2 Von 10-21-2022 XR CHEST [...] by: CHRISTIANO MORALES Date: 2022-10-21 11:23 Normal [facility] BNPon 10-20-2022 Natriuretic peptide B (Bld) [Mass/Vol] 2512.0 pg/mL Critically high <=900.0 [facility] Comment on above: Performed By: #### B 12FOL, VITAD, IRON #### [facility] [address] [address] [address] Ekta Funk CARDIAC BRITTANIE ADMITon 023 CK [Catalytic activity/Vol] 35 U/L Normal 26-192 [facility] Comment on above: Performed By: #### B 12FOL, VITAD, IRON #### [facility] [address] [address] [address] Ekta Funk CK.MB [Mass/Vol] 0.64 ng/mL Normal <=3.60 [facility] Comment on above: Performed By: #### B 12FOL, VITAD, IRON #### [facility] [address] [address] [address] Ekta Funk HSTROP 28.1 pg/mL Normal 4.0-51.3 [facility] Comment on above: Result Comment: CUT- OFF POINTS HAVE BEEN ESTABLISHED BASED ON THE FOURTH UNIVERSAL DEFINITIONS OF MYOCARDIAL INFARCTION. THE UPPER REFERENCE LIMIT (URL) OF TROPONIN, DEFINED THE 99TH PERCENTILE OF cTnI DISTRIBUTION IN A REFERENCE POPULATION, HAS BEEN CONFIRMED THE DECISION THRESHOLD FOR RI DIAGNOSIS. Performed By: #### B 12FOL, VITAD, IRON #### [facility] [address] [address] [address] Ekta Funk EVELYN 57 ng/mL Normal 9-82 [facility] Comment on above: Performed By: #### B 12FOL, VITAD, IRON #### [facility] [address] [address] [address] Ekta Funk CBC AUTO DIFFon 10-20-2022 BASO # 0.0 103/ul Normal 0.0-0.1 [facility] Comment on above: Performed By: #### C BC #### [facility] [address] [address] [address] Ekta Funk Basophils/100 WBC (Bld) 0.2 % Normal 0.2-2.0 [facility] Comment on above: Performed By: #### C BC #### [facility] [address] [place] [address] Dr. Ekta Funk EO # 0.2 103/ul Normal 0.0-0.7 [facility] Comment on above: Performed By: #### C BC #### [facility] [address] [place] [address] Dr. Ekta Funk Eosinophils/100 WBC (Bld) 1.4 % Normal 0.9-7.0 [facility] Comment on above: Performed By: #### C BC #### [facility] [address] [place] [address] Dr. Ekta Funk Erythrocyte distribution width (RBC) [Ratio] 12.9 % Normal 11.0-15.0 [facility] Comment on above: Performed By: #### C BC #### [facility] [address] [place] [address] Dr. Ekta Funk Hematocrit (Bld) [Volume fraction] 34.7 % Critically low 36.0-48.0 [facility] Comment on above: Performed By: #### C BC #### [facility] [address] [place] [address] Dr. Ekta Funk Hemoglobin (Bld) [Mass/Vol] 11.8 g/dL Critically low 12.0-16.0 [facility] Comment on above: Performed By: #### C BC #### [facility] [address] [place] [address] Dr. Ekta Funk IG # 0.09 10e3/ul Critically high 0.00-0.03 [facility] Comment on above: Performed By: #### C BC #### [facility] [address] [place] [address] Dr. Ekta Funk IG % 0.8 % Critically high 0.0-0.5 [facility] Comment on above: Performed By: #### C BC #### [facility] [address] [place] [address] Dr. Ekta Funk LYMPH # 1.9 103/ul Normal 1.2-3.8 [facility] Comment on above: Performed By: #### C BC #### [facility] [address] [place] [address] Dr. Ekta Funk Lymphocytes/100 WBC (Bld) 16.1 % Critically low 20.5-60.0 [facility] Comment on above: Performed By: #### C BC #### [facility] [address] [place] [address] Dr. Ekta Funk MANUAL DIFF REQ NO Normal [facility] Comment on above: Performed By: #### C BC #### [facility] [address] [place] [address] Dr. Ekta Funk MCH (RBC) [Entitic mass] 32.6 pg Normal 26.7-34.0 [facility] Comment on above: Performed By: #### C BC #### [facility] [address] [place] [address] Dr. Ekta Funk MCHC (RBC) [Mass/Vol] 34.0 g/dL Normal 29.9-35.2 [facility] Comment on above: Performed By: #### C BC #### [facility] [address] [place] [address] Dr. Ekta Funk MCV (RBC) [Entitic vol] 95.9 fL Normal 81.0-99.0 [facility] Comment on above: Performed By: #### C BC #### [facility] [address] [place] [address] Dr. Ekta Funk MONO # 0.8 103/ul Normal 0.3-0.8 [facility] Comment on above: Performed By: #### C BC #### [facility] [address] [place] [address] Dr. Ekta Funk Monocytes/100 WBC (Bld) 7.0 % Normal 1.7-12.0 [facility] Comment on above: Performed By: #### C BC #### [facility] [address] [place] [address] Dr. Ekta Funk NEUT # 8.8 103/ul Critically high 1.4-6.5 [facility] Comment on above: Performed By: #### C BC #### [facility] [address] [address] [address] Ekta Funk Neutrophils/100 WBC (Bld) 74.5 % Normal 43.0-75.0 [facility] Comment on above: Performed By: #### C BC #### [facility] [address] [place] [address] Dr. Ekta Funk Platelet mean volume (Bld) [Entitic vol] 9.8 fL Normal 9.5-13.5 [facility] Comment on above: Performed By: #### C BC #### [facility] [address] [place] [address] Dr. Ekta Funk PLT 203 103/ul Normal 150-450 [facility] Comment on above: Performed By: #### C BC #### [facility] [address] [place] [address] Dr. Ekta Funk RBC 3.62 106/ul Critically low 4.20-5.40 [facility] Comment on above: Performed By: #### C BC #### [facility] [address] [place] [address] Dr. Ekta Funk WBC 11.8 103/ul Critically high 4.0-11.0 [facility] Comment on above: Performed By: #### C BC #### [facility] [address] [place] [address] Dr. Ekta Funk CULTURE URINEon 10-20-2022 CULTURE URINE Culture Observations : NO GROWTH. Normal [facility] Comment on above: Performed By: #### I NSULIN #### [facility] [address] [place] [address] Dr. Ekta Funk Covid-19 PCR [facility]on 10-11 SARS-CoV-2 (COVID-19) RNA GANESH+probe Ql (Unsp spec) Not detected Normal NOT DETECTED [facility] Comment on above: Result Comment: When [...] for this test is supported by the [employer] of [employer] and Human Service's declaration that [...] By: #### B 12FOL, VITCAMI, AURELIA #### [facility] [address] [place] [address] Dr. Ekta Funk ECHOCARDIO M/2D COMPLETEon 0 10-20-2022 ECHOCARDIO M/2D COMPLETE Patient: SHEILA MAC Exam Date: 10/20/2022 : 1950 Gender:F Ordering : DR KRZYSZTOF HARP . Admission #: [id number] Family : Order #: [id number] CLICK HERE TO VIEW EXAM ECHOCARDIOGRAM REPORT [...] M.D. on 10/20/2022 at 14:57 Normal [facility] PROF 14(COMP METB)on 023 Albumin [Mass/Vol] 2.8 g/dL Critically low 3.4-5.0 [facility] Comment on above: Performed By: #### B 12FOL, VITAD, IRON #### [facility] [address] [place] [address] Dr. Ekta Funk Albumin/Globulin [Mass ratio] 0.7 {ratio} Normal [facility] Comment on above: Performed By: #### B 12FOL, VITAD, IRON #### [facility] [address] [place] [address] Dr. Ekta Funk ALP [Catalytic activity/Vol] 84 U/L Normal 46-116 [facility] Comment on above: Performed By: #### B 12FOL, VITAD, IRON #### [facility] [address] [place] [address] Dr. Ekta Funk ALT [Catalytic activity/Vol] 29 U/L Normal 14-59 [facility] Comment on above: Performed By: #### B 12FOL, VITAD, IRON #### [facility] [address] [place] [address] Dr. Ekta Funk Anion gap [Moles/Vol] 15.9 mmol/L Normal [facility] Comment on above: Performed By: #### B 12FOL, VITAD, IRON #### [facility] [address] [place] [address] Dr. Ekta Funk AST [Catalytic activity/Vol] 15 U/L Normal 15-37 [facility] Comment on above: Performed By: #### B 12FOL, VITAD, IRON #### [facility] [address] [place] [address] Dr. Ekta Funk Bilirubin [Mass/Vol] 0.3 mg/dL Normal 0.2-1.0 [facility] Comment on above: Performed By: #### B 12FOL, VITAD, IRON #### [facility] [address] [place] [address] Dr. Ekta Funk Calcium [Mass/Vol] 8.9 mg/dL Normal 8.5-10.1 [facility] Comment on above: Performed By: #### B 12FOL, VITAD, IRON #### [facility] [address] [address] [address] Ekta Funk Chloride [Moles/Vol] 103 mmol/L Normal 98-107 [facility] Comment on above: Performed By: #### B 12FOL, VITAD, IRON #### [facility] [address] [address] [address] Ekta Funk CO2 [Moles/Vol] 26.3 mmol/L Normal 21.0-32.0 [facility] Comment on above: Performed By: #### B 12FOL, VITAD, IRON #### [facility] [address] [place] [address] Dr. Ekta Funk Creatinine [Mass/Vol] 1.99 mg/dL Critically high 0.55-1.02 [facility] Comment on above: Performed By: #### B 12FOL, VITAD, IRON #### [facility] [address] [address] [address] Ekta Funk EGFR-AF [place] 30 mL/min/1.73m2 Critically low >=60 [facility] Comment on above: Performed By: #### B 12FOL, VITAD, IRON #### [facility] [address] [address] [address] Ekta Funk EGFR-NON AF [place] 24 mL/min/1.73m2 Critically low >=60 [facility] Comment on above: Performed By: #### B 12FOL, VITAD, IRON #### [facility] [address] [address] [address] Ekta Funk Globulin (S) [Mass/Vol] 4.1 g/dL Normal [facility] Comment on above: Performed By: #### B 12FOL, VITAD, IRON #### [facility] [address] [address] [address] Ekta Funk Glucose [Mass/Vol] 115 mg/dL Critically high 74-106 [facility] Comment on above: Performed By: #### B 12FOL, VITAD, IRON #### [facility] [address] [place] [address] Dr. Ekta Funk Potassium [Moles/Vol] 5.2 mmol/L Critically high 3.5-5.1 [facility] Comment on above: Performed By: #### B 12FOL, VITAD, IRON #### [facility] [address] [place] [address] Dr. Ekta Funk Protein [Mass/Vol] 6.9 g/dL Normal 6.4-8.2 [facility] Comment on above: Performed By: #### B 12FOL, VITAD, IRON #### [facility] [address] [place] [address] Dr. Ekta Funk Sodium [Moles/Vol] 140 mmol/L Normal 136-145 [facility] Comment on above: Performed By: #### B 12FOL, VITAD, IRON #### [facility] [address] [place] [address] Dr. Ekta Funk Urea nitrogen [Mass/Vol] 45.0 mg/dL Critically high 7.0-18.0 [facility] Comment on above: Performed By: #### B 12FOL, VITAD, IRON #### [facility] [address] [place] [address] Dr. Ekta Funk Urea nitrogen/Creatinine [Mass ratio] 22.6 mg/mg Normal [facility] Comment on above: Performed By: #### B 12FOL, VITAD, IRON #### [facility] [address] [place] [address] Dr. Ekta Funk T4on 10-20-2022 T4 [Mass/Vol] 6.10 ug/dL Normal 4.80-13.90 [facility] Comment on above: Performed By: #### B 12FOL, VITAD, IRON #### [facility] [address] [place] [address] Dr. Ekta Funk TSHon 10-20-2022 TSH 1.336 uIU/mL Normal 0.358-3.740 [facility] Comment on above: Performed By: #### B 12FOL, VITAD, IRON #### [facility] [address] [place] [address] Dr. Ekta Funk UA RANDOM W/MICROSCOPICon BACTERIA TRACE Abnormal NONE SEEN [facility] Comment on above: Performed By: #### B 12FOL, VITAD, IRON #### [facility] [address] [place] [address] Dr. Ekta Funk Bilirubin Ql (U) Negative Normal NEGATIVE [facility] Comment on above: Performed By: #### B 12FOL, VITAD, IRON #### [facility] [address] [place] [address] Dr. Ekta Funk CAST NONE SEEN Normal NONE SEEN [facility] Comment on above: Performed By: #### B 12FOL, VITAD, IRON #### [facility] [address] [place] [address] Dr. Ekta Funk Clarity (U) CLEAR Normal CLEAR [facility] Comment on above: Performed By: #### B 12FOL, VITAD, IRON #### [facility] [address] [place] [address] Dr. Ekta Funk Color (U) LT. YELLOW Normal YELLOW [facility] Comment on above: Performed By: #### B 12FOL, VITAD, IRON #### [facility] [address] [place] [address] Dr. Ekta Funk Crystals LM Nom (Urine sed) NONE SEEN Normal NONE SEEN [facility] Comment on above: Performed By: #### B 12FOL, VITAD, IRON #### [facility] [address] [place] [address] Dr. Ekta Funk Epithelial cells LM Ql (Urine sed) RARE Normal NONE SEEN /RARE [facility] Comment on above: Performed By: #### B 12FOL, VITAD, IRON #### [facility] [address] [place] [address] Dr. Ekta Funk Glucose Ql (U) Negative Normal NEGATIVE [facility] Comment on above: Performed By: #### B 12FOL, VITAD, IRON #### [facility] [address] [place] [address] Dr. Ekta Funk Hemoglobin Ql (U) Negative Normal NEGATIVE [facility] Comment on above: Performed By: #### B 12FOL, VITAD, IRON #### [facility] [address] [place] [address] Dr. Ekta Funk Ketones Ql (U) Negative Normal NEGATIVE [facility] Comment on above: Performed By: #### B 12FOL, VITAD, IRON #### [facility] [address] [place] [address] Dr. Ekta Funk LEUKOCYTES Negative Normal NEGATIVE [facility] Comment on above: Performed By: #### B 12FOL, VITAD, IRON #### [facility] [address] [place] [address] Dr. Ekta Funk MUCOUS NONE SEEN Normal NONE SEEN [facility] Comment on above: Performed By: #### B 12FOL, VITAD, IRON #### [facility] [address] [place] [address] Dr. Ekta Funk Nitrite Ql (U) Negative Normal NEGATIVE [facility] Comment on above: Performed By: #### B 12FOL, VITAD, IRON #### [facility] [address] [place] [address] Dr. Ekta Funk pH (U) 6.0 [pH] Normal 5-9 [facility] Comment on above: Performed By: #### B 12FOL, VITAD, IRON #### [facility] [address] [place] [address] Dr. Ekta Funk RBC 0-2 Normal 0-2 [facility] Comment on above: Performed By: #### B 12FOL, VITAD, IRON #### [facility] [address] [place] [address] Dr. Ekta Funk SPEC GRAVITY <=1.005 Abnormal 1.005-<=1.025 [facility] Comment on above: Performed By: #### B 12FOL, VITAD, IRON #### [facility] [address] [address] [address] Ekta Funk UA PROTEIN Negative Normal NEGATIVE/ TRACE [facility] Comment on above: Performed By: #### B 12FOL, VITAD, IRON #### [facility] [address] [place] [address] Dr. Ekta Funk Urobilinogen Qn (U) 0.2 {Ivan'U}/dL Normal 0.2 - 1. 0 [facility] Comment on above: Performed By: #### B 12FOL, VITAD, IRON #### [facility] [address] [place] [address] Dr. Ekta Funk WBC NONE SEEN Normal NONE SEEN [facility] Comment on above: Performed By: #### B 12FOL, VITAD, IRON #### [facility] [address] [place] [address] Dr. Ekta Funk BNPon 10-19-2022 Natriuretic peptide B (Bld) [Mass/Vol] 1355.0 pg/mL Critically high <=900.0 [facility] Comment on above: Performed By: #### B 12FOL, VITAD, IRON #### [facility] [address] [place] [address] Dr. Ekta Funk INSULINon 10-19-2022 Insulin 12.4 uIU/mL Normal 2.6-24.9 [facility] Comment on above: Performed By: #### I NSULIN #### [facility] [address] [place] [address] Dr. Ekta Funk OCC BLD IMMUNO SCREENon OCCULT BLOOD Positive Abnormal NEGATIVE [facility] Comment on above: Performed By: #### B 12FOL, VITAD, IRON #### [facility] [address] [place] [address] Dr. Ekta Funk PROF CHEM 8 (BAS METB)on Anion gap [Moles/Vol] 15.8 mmol/L Normal [facility] Comment on above: Performed By: #### B 12FOL, VITAD, IRON #### [facility] [address] [place] [address] Dr. Ekta Funk Calcium [Mass/Vol] 8.8 mg/dL Normal 8.5-10.1 [facility] Comment on above: Performed By: #### B 12FOL, VITAD, IRON #### [facility] [address] [address] [address] Ekta Funk Chloride [Moles/Vol] 107 mmol/L Normal 98-107 [facility] Comment on above: Performed By: #### B 12FOL, VITAD, IRON #### [facility] [address] [address] [address] Ekta Funk CO2 [Moles/Vol] 21.5 mmol/L Normal 21.0-32.0 [facility] Comment on above: Performed By: #### B 12FOL, VITAD, IRON #### [facility] [address] [address] [address] Ekta Funk Creatinine [Mass/Vol] 1.62 mg/dL Critically high 0.55-1.02 [facility] Comment on above: Performed By: #### B 12FOL, VITAD, IRON #### [facility] [address] [address] [address] Ekta Funk EGFR-AF [place] 38 mL/min/1.73m2 Critically low >=60 [facility] Comment on above: Performed By: #### B 12FOL, VITAD, IRON #### [facility] [address] [address] [address] Ekta Funk EGFR-NON AF [place] 31 mL/min/1.73m2 Critically low >=60 [facility] Comment on above: Performed By: #### B 12FOL, VITAD, IRON #### [facility] [address] [address] [address] Ekta Funk Glucose [Mass/Vol] 134 mg/dL Critically high 74-106 [facility] Comment on above: Performed By: #### B 12FOL, VITAD, IRON #### [facility] [address] [address] [address] Ekta Funk Potassium [Moles/Vol] 5.3 mmol/L Critically high 3.5-5.1 [facility] Comment on above: Performed By: #### B 12FOL, VITAD, IRON #### [facility] [address] [place] [address] Dr. Ekta Funk Sodium [Moles/Vol] 139 mmol/L Normal 136-145 [facility] Comment on above: Performed By: #### B 12FOL, VITAD, IRON #### [facility] [address] [place] [address] Dr. Ekta Funk Urea nitrogen [Mass/Vol] 37.0 mg/dL Critically high 7.0-18.0 [facility] Comment on above: Performed By: #### B 12FOL, VITAD, IRON #### [facility] [address] [place] [address] Dr. Ekta Funk Urea nitrogen/Creatinine [Mass ratio] 22.8 mg/mg Normal [facility] Comment on above: Performed By: #### B 12FOL, VITAD, IRON #### [facility] [address] [place] [address] Dr. Ekta Funk TROPONIN, HIGH SENSITIVITYon 10-19-2022 HSTROP 53.2 pg/mL Critically high 4.0-51.3 [facility] Comment on above: Result Comment: CUT- OFF POINTS HAVE BEEN ESTABLISHED BASED ON THE FOURTH UNIVERSAL DEFINITIONS OF MYOCARDIAL INFARCTION. THE UPPER REFERENCE LIMIT (URL) OF TROPONIN, DEFINED THE 99TH PERCENTILE OF cTnI DISTRIBUTION IN A REFERENCE POPULATION, HAS BEEN CONFIRMED THE DECISION THRESHOLD FOR RI DIAGNOSIS. Performed By: #### B 12FOL, VITAD, IRON #### [facility] [address] [place] [address] Dr. Ekta Funk BNPon 10-18-2022 Natriuretic peptide B (Bld) [Mass/Vol] 1386.0 pg/mL Critically high <=900.0 [facility] Comment on above: Performed By: #### C VDTBH #### [facility] [address] [place] [address] Dr. Ekta Funk CARDIAC BRITTANIE ADMITon 023 CK [Catalytic activity/Vol] 34 U/L Normal 26-192 [facility] Comment on above: Performed By: #### C VDTBH #### [facility] [address] [address] [address] Ekta Funk CK.MB [Mass/Vol] 1.43 ng/mL Normal <=3.60 [facility] Comment on above: Performed By: #### C VDTBH #### [facility] [address] [address] [address] Ekta Funk HSTROP 74.1 pg/mL Critically high 4.0-51.3 [facility] Comment on above: Result Comment: CUT- OFF POINTS HAVE BEEN ESTABLISHED BASED ON THE FOURTH UNIVERSAL DEFINITIONS OF MYOCARDIAL INFARCTION. THE UPPER REFERENCE LIMIT (URL) OF TROPONIN, DEFINED THE 99TH PERCENTILE OF cTnI DISTRIBUTION IN A REFERENCE POPULATION, HAS BEEN CONFIRMED THE DECISION THRESHOLD FOR RI DIAGNOSIS. Performed By: #### C VDTBH #### [facility] [address] [place] [address] Dr. Ekta Funk EVELYN 52 ng/mL Normal 9-82 [facility] Comment on above: Performed By: #### C VDTBH #### [facility] [address] [place] [address] Dr. Ekta Funk CBC AUTO DIFFon 10-18-2022 BASO # 0.0 103/ul Normal 0.0-0.1 [facility] Comment on above: Performed By: #### C BC #### [facility] [address] [place] [address] Dr. Ekta Funk Basophils/100 WBC (Bld) 0.3 % Normal 0.2-2.0 [facility] Comment on above: Performed By: #### C BC #### [facility] [address] [place] [address] Dr. Ekta uFnk EO # 0.1 103/ul Normal 0.0-0.7 [facility] Comment on above: Performed By: #### C BC #### [facility] [address] [place] [address] Dr. Ekta Funk Eosinophils/100 WBC (Bld) 0.9 % Normal 0.9-7.0 [facility] Comment on above: Performed By: #### C BC #### [facility] [address] [place] [address] Dr. Ekta Funk Erythrocyte distribution width (RBC) [Ratio] 13.2 % Normal 11.0-15.0 [facility] Comment on above: Performed By: #### C BC #### [facility] [address] [place] [address] Dr. Ekta Funk Hematocrit (Bld) [Volume fraction] 38.9 % Normal 36.0-48.0 [facility] Comment on above: Performed By: #### C BC #### [facility] [address] [place] [address] Dr. Ekta Funk Hemoglobin (Bld) [Mass/Vol] 12.4 g/dL Normal 12.0-16.0 [facility] Comment on above: Performed By: #### C BC #### [facility] [address] [place] [address] Dr. Ekta Funk IG # 0.08 10e3/ul Critically high 0.00-0.03 [facility] Comment on above: Performed By: #### C BC #### [facility] [address] [place] [address] Dr. Ekta Funk IG % 0.5 % Normal 0.0-0.5 [facility] Comment on above: Performed By: #### C BC #### [facility] [address] [place] [address] Dr. Ekta Funk LYMPH # 1.4 103/ul Normal 1.2-3.8 [facility] Comment on above: Performed By: #### C BC #### [facility] Laboratory [address] [place] [address] Dr. Ekta Funk Lymphocytes/100 WBC (Bld) 9.6 % Critically low 20.5-60.0 [facility] Comment on above: Performed By: #### C BC #### [facility] [address] [place] [address] Dr. Ekta Funk MANUAL DIFF REQ NO Normal [facility] Comment on above: Performed By: #### C BC #### [facility] [address] [address] [address] Ekta Funk MCH (RBC) [Entitic mass] 32.3 pg Normal 26.7-34.0 [facility] Comment on above: Performed By: #### C BC #### [facility] [address] [address] [address] Ekta Funk MCHC (RBC) [Mass/Vol] 31.9 g/dL Normal 29.9-35.2 [facility] Comment on above: Performed By: #### C BC #### [facility] [address] [address] [address] Ekta Funk MCV (RBC) [Entitic vol] 101.3 fL Critically high 81.0-99.0 [facility] Comment on above: Performed By: #### C BC #### [facility] [address] [place] [address] Dr. Ekta Funk MONO # 0.9 103/ul Critically high 0.3-0.8 [facility] Comment on above: Performed By: #### C BC #### [facility] [address] [address] [address] Ekta Funk Monocytes/100 WBC (Bld) 6.3 % Normal 1.7-12.0 [facility] Comment on above: Performed By: #### C BC #### [facility] [address] [place] [address] Dr. Ekta Funk NEUT # 12.0 103/ul Critically high 1.4-6.5 The [facility] Comment on above: Performed By: #### C BC #### [facility] [address] [place] [address] Dr. Ekta Funk Neutrophils/100 WBC (Bld) 82.4 % Critically high 43.0-75.0 [facility] Comment on above: Performed By: #### C BC #### [facility] [address] [place] [address] Dr. Ekta Funk Platelet mean volume (Bld) [Entitic vol] 9.7 fL Normal 9.5-13.5 [facility] Comment on above: Performed By: #### C BC #### [facility] [address] [address] [address] Ekta Funk PLT 176 103/ul Normal 150-450 [facility] Comment on above: Performed By: #### C BC #### [facility] [address] [address] [address] Ekta Funk RBC 3.84 106/ul Critically low 4.20-5.40 [facility] Comment on above: Performed By: #### C BC #### [facility] [address] [address] [address] Ekta Funk WBC 14.6 103/ul Critically high 4.0-11.0 [facility] Comment on above: Performed By: #### C BC #### [facility] [address] [place] [address] Dr. Ekta Funk FREE THYROXINE INDEX T7on FTI 2.34 Normal 1.30-4.50 [facility] Comment on above: Performed By: #### C VDTBH #### [facility] [address] [place] [address] Dr. Ekta Funk T3U 36.0 % Normal 30.0-39.0 [facility] Comment on above: Performed By: #### C VDTBH #### [facility] [address] [place] [address] Dr. Ekta Funk T4 [Mass/Vol] 6.50 ug/dL Normal 4.80-13.90 [facility] Comment on above: Performed By: #### C VDTBH #### [facility] [address] [place] [address] Dr. Ekta Funk GLYCOHEMOGLOBIN A1Con 2022 ADA RECOMMENDATION SEE BELOW Normal [facility] Comment on above: Result Comment: ADA RECOMMENDED LIMIT 4.0 - 6.0 ADA THERAPEUTIC TARGET < 7.0 ACTION SUGGESTED > 7.0 Performed By: #### B 12FOL, VITAD, IRON #### [facility] [address] [place] [address] Dr. Ekta Funk Glucose [Mass/Vol] 140 mg/dL Normal [facility] Comment on above: Performed By: #### B 12FOL, VITAD, IRON #### [facility] [address] [address] [address] Ekta Funk HbA1c (Bld) [Mass fraction] 6.5 % Critically high 4.5-6.2 [facility] Comment on above: Performed By: #### B 12FOL, VITAD, IRON #### [facility] [address] [address] [address] Ekta Funk IRONon 10-18-2022 Iron [Mass/Vol] 62.0 ug/dL Normal 50.0-170.0 [facility] Comment on above: Performed By: #### B 12FOL, VITAD, IRON #### [facility] [address] [place] [address] Dr. Ekta Funk LIPID PROFILEon 10-18-2022 CHOL-HDL RATIO NORM SEE BELOW Normal [facility] Comment on above: Result Comment: 3.3 - 4.4 LOW RISK 4.4 - 7.1 AVERAGE RISK 7.1 - 11.0 MODERATE RISK >11.0 HIGH RISK Performed By: #### C VDTBH #### [facility] [address] [place] [address] Dr. Ekta Funk Cholesterol [Mass/Vol] 242 mg/dL Critically high <=200 [facility] Comment on above: Performed By: #### C VDTBH #### [facility] [address] [address] [address] Ekta Funk Cholesterol in HDL [Mass/Vol] 74 mg/dL Critically high 40-60 [facility] Comment on above: Performed By: #### C VDTBH #### [facility] [address] [address] [address] Ekta Funk Cholesterol in LDL [Mass/Vol] 139.4 mg/dL Normal [facility] Comment on above: Performed By: #### C VDTBH #### [facility] [address] [place] [address] Dr. Ekta Funk Cholesterol.total/Ch olesterol in HDL [Mass ratio] 3.3 {ratio} Normal [facility] Comment on above: Performed By: #### C VDTBH #### [facility] [address] [address] [address] Ekta Funk HDL NORMAL > or = 60 mg/dl - LO W CARDIOVASCULAR RISK <40 mg/dl - HIGH CARDIOVASCULAR RISK Normal [facility] Comment on above: Performed By: #### C VDTBH #### [facility] [address] [address] [address] Ekta Funk LDL CALC NORMAL SEE BELOW Normal [facility] Comment on above: Result Comment: <100 mg/dl OPTIMAL 100 - 129 mg/dl NEAR OR ABOVE OPTIMAL 130 - 159 mg/dl BORDERLINE HIGH 160 - 189 mg/dl HIGH >190 mg/dl VERY HIGH Performed By: #### C VDTBH #### [facility] [address] [place] [address] Dr. Ekta Funk Triglyceride [Mass/Vol] 143 mg/dL Normal <=150 [facility] Comment on above: Performed By: #### C VDTBH #### [facility] [address] [address] [address] Ekta Funk VLDL CALC 28.6 mg/dL Normal [facility] Comment on above: Performed By: #### C VDTBH #### [facility] [address] [place] [address] Dr. Ekta Funk PROF 14(COMP METB)on 023 Albumin [Mass/Vol] 2.8 g/dL Critically low 3.4-5.0 [facility] Comment on above: Performed By: #### C VDTBH #### [facility] [address] [address] [address] Ekta Funk Albumin/Globulin [Mass ratio] 0.7 {ratio} Normal [facility] Comment on above: Performed By: #### C VDTBH #### [facility] [address] [address] [address] Ekta Funk ALP [Catalytic activity/Vol] 90 U/L Normal 46-116 [facility] Comment on above: Performed By: #### C VDTBH #### [facility] [address] [address] [address] Ekta Funk ALT [Catalytic activity/Vol] 26 U/L Normal 14-59 [facility] Comment on above: Performed By: #### C VDTBH #### [facility] [address] [address] [address] Ekta Funk Anion gap [Moles/Vol] 14.5 mmol/L Normal [facility] Comment on above: Performed By: #### C VDTBH #### [facility] [address] [address] [address] Ekta Funk AST [Catalytic activity/Vol] 14 U/L Critically low 15-37 [facility] Comment on above: Performed By: #### C VDTBH #### [facility] [address] [place] [address] Dr. Ekta Funk Bilirubin [Mass/Vol] 0.4 mg/dL Normal 0.2-1.0 [facility] Comment on above: Performed By: #### C VDTBH #### [facility] [address] [place] [address] Dr. Ekta Funk Calcium [Mass/Vol] 8.9 mg/dL Normal 8.5-10.1 [facility] Comment on above: Performed By: #### C VDTBH #### [facility] [address] [place] [address] Dr. Ekta Funk Chloride [Moles/Vol] 106 mmol/L Normal 98-107 [facility] Comment on above: Performed By: #### C VDTBH #### [facility] [address] [address] [address] Ekta Funk CO2 [Moles/Vol] 23.5 mmol/L Normal 21.0-32.0 [facility] Comment on above: Performed By: #### C VDTBH #### [facility] [address] [place] [address] Dr. Ekta Funk Creatinine [Mass/Vol] 1.70 mg/dL Critically high 0.55-1.02 [facility] Comment on above: Performed By: #### C VDTBH #### [facility] [address] [address] [address] Ekta Funk EGFR-AF [place] 36 mL/min/1.73m2 Critically low >=60 [facility] Comment on above: Performed By: #### C VDTBH #### [facility] [address] [address] [address] Ekta Funk EGFR-NON AF [place] 29 mL/min/1.73m2 Critically low >=60 [facility] Comment on above: Performed By: #### C VDTBH #### [facility] [address] [address] [address] Ekta Funk Globulin (S) [Mass/Vol] 4.0 g/dL Normal [facility] Comment on above: Performed By: #### C VDTBH #### [facility] [address] [address] [address] Ekta Funk Glucose [Mass/Vol] 99 mg/dL Normal 74-106 [facility] Comment on above: Performed By: #### C VDTBH #### [facility] [address] [address] [address] Ekta Funk Potassium [Moles/Vol] 5.0 mmol/L Normal 3.5-5.1 [facility] Comment on above: Performed By: #### C VDTBH #### [facility] [address] [address] [address] Ekta Funk Protein [Mass/Vol] 6.8 g/dL Normal 6.4-8.2 [facility] Comment on above: Performed By: #### C VDTBH #### [facility] [address] [address] [address] Ekta Funk Sodium [Moles/Vol] 139 mmol/L Normal 136-145 [facility] Comment on above: Performed By: #### C VDTBH #### [facility] [address] [address] [address] Ekta Funk Urea nitrogen [Mass/Vol] 36.0 mg/dL Critically high 7.0-18.0 [facility] Comment on above: Performed By: #### C VDTBH #### [facility] [address] [address] [address] Ekta Funk Urea nitrogen/Creatinine [Mass ratio] 21.2 mg/mg Normal [facility] Comment on above: Performed By: #### C VDTBH #### [facility] [address] [address] [address] Ekta Funk TSHon 10-18-2022 TSH 0.910 uIU/mL Normal 0.358-3.740 [facility] Comment on above: Performed By: #### C VDTBH #### [facility] [address] [address] [address] Ekta Funk Covid-19 PCR ([facility])on 09-10 SARS-CoV-2 (COVID-19) RNA GANESH+probe Ql (Unsp spec) Detected Abnormal NOT DETECTED [facility] Comment on above: Result Comment: This test is not yet approved or cleared by the [place] FDA. When there are no FDA-approved or cleared tests available, and other criteria are met, FDA can make tests available under an emergency access mechanism called an Emergency Use Authorization (EUA). The EUA for this test is supported by the Reading of Health and Human Service's declaration that [...] used). Performed By: #### C MP #### [facility] [id number] Ekta Funk INFLUENZA A AND B AGon 09-25 INFLUANEGH SEE BELOW Normal [facility] Comment on above: Result Comment: Nega tive for Flu A protein angiten. Infection due to Flu A cannot be ruled out. Flu A angiten in the sample may be below the detection limit of the test. Performed By: #### B 12FOL, VITAD, IRON #### [facility] [address] [address] [address] Ekta Funk [facility] SEE BELOW Normal [facility] Comment on above: Result Comment: Nega tive for Flu B protein antigen. Infection due to Flu B cannot be ruled out. Flu B antigen in the sample may be below the detection limit of the test. Performed By: #### B 12FOL, VITAD, IRON #### [facility] [address] [address] [address] Ekta Funk INFLUENZA A AG Negative Normal NEGATIVE SEE COMMENT [facility] Comment on above: Performed By: #### B 12FOL, VITAD, IRON #### [facility] [address] [address] [address] Ekta Funk INFLUENZA B AG Negative Normal NEGATIVE SEE COMMENT [facility] Comment on above: Performed By: #### B 12FOL, VITAD, IRON #### [facility] [address] [place] [address] Dr. Ekat Funk US CAROTID ART BILon 022 US [...] by: GODWIN BECK Date: 2022-05-26 16:06 Normal [facility] MRI BRAIN WO CONon MRI BRAIN WO [...] by: VISHNU MARIE Date: 2022-05-25 10:45 Normal [facility] ECHOCARDIO M/2D COMPLETEon 0 05-24-2022 ECHOCARDIO M/2D COMPLETE Patient: SHEILA MAC Exam Date: 05/24/2022 : 1950 Gender:F Ordering : DR KRZYSZTOF HARP . Admission #: [id number] Family : Order #: [id number] CLICK HERE TO VIEW EXAM ECHOCARDIOGRAM REPORT [...] M.D. on 05/24/2022 at 14:45 Normal [facility] BASIC METABOLIC PANELon 03- Calcium mass conc 9.4 mg/dL Normal 8.6-10.3 The [facility] Comment on above: Order Comment: No: D o not add to previous draw Performed By: #### 0 0071 #### [facility] [address] [place] [address], [place] Chloride molar conc 108 mmol/L High 98-107 The [facility] Comment on above: Order Comment: No: D o not add to previous draw Performed By: #### 0 0071 #### [facility] [address] [place] [address], [place] CO2 molar conc 22 mmol/L Normal 21-31 The [facility] Comment on above: Order Comment: No: D o not add to previous draw Performed By: #### 0 0071 #### [facility] [address] [place] [address], [place] Creatinine mass conc 1.18 mg/dL Normal 0.60-1.20 The [facility] Comment on above: Order Comment: No: D o not add to previous draw Performed By: #### 0 0071 #### [facility] [address] [place] [address], [place] GFR/1.73 sq M predicted among blacks MDRD vol rate/area (S/P/Bld) 55 ml/min/1.73sq m Abnormal >60 The [facility] Comment on above: Order Comment: No: D o not add to previous draw Performed By: #### 0 0071 #### [facility] [address] [place] [address], [place] GFR/1.73 sq M predicted among non-blacks MDRD vol rate/area (S/P/Bld) 45 ml/min/1.73sq m Abnormal >60 [facility] Comment on above: Order Comment: No: D o not add to previous draw Performed By: #### 0 0071 #### [facility] [address] [place] [address], [place] Glucose mass conc 166 mg/dL High 70-100 The [facility] Comment on above: Order Comment: No: D o not add to previous draw Performed By: #### 0 0071 #### [facility] [address] [place] [address], [facility] Potassium molar conc 4.1 mmol/L Normal 3.5-5.1 The [facility] Comment on above: Order Comment: No: D o not add to previous draw Performed By: #### 0 0071 #### [facility] [address] [place] [address], [facility] Sodium molar conc 140 mmol/L Normal 136-145 The [facility] Comment on above: Order Comment: No: D o not add to previous draw Performed By: #### 0 0071 #### [facility] [address] [place] [address], [facility] Urea nitrogen mass conc 21 mg/dL Normal 7-25 The [facility] Comment on above: Order Comment: No: D o not add to previous draw Performed By: #### 0 0071 #### [facility] [address] [place], [place] [address] CBC COMPLETE BLOOD COUNTon 0 - Erythrocyte distribution width Ratio (RBC) 12.9 % Normal 11.5-15.0 [facility] Comment on above: Order Comment: No: D o not add to previous draw Performed By: #### 5 [id number] #### [facility] [address] [place] [id number], [facility] Hematocrit Volume Fraction (Bld) 36.7 % Normal 36.0-45.0 The [facility] Comment on above: Order Comment: No: D o not add to previous draw Performed By: #### 5 [id number] #### [facility] [address] [place] [address], [facility] Hemoglobin mass conc (Bld) 12.4 g/dL Normal 12.0-15.0 The [facility] Comment on above: Order Comment: No: D o not add to previous draw Performed By: #### 5 [id number] #### [facility] [address] [place] [address], [facility] MCH Entitic mass (RBC) 31.2 pg Normal 27.0-33.0 The [facility] Comment on above: Order Comment: No: D o not add to previous draw Performed By: #### 5 [id number] #### [facility] [address] [place] [address], [facility] MCHC mass conc (RBC) 33.8 g/dL Normal 32.0-35.0 The [facility] Comment on above: Order Comment: No: D o not add to previous draw Performed By: #### 5 [id number] #### [facility] [address] MCV Entitic volume (RBC) 92.4 fL Normal 82.0-98.0 The [facility] Comment on above: Order Comment: No: D o not add to previous draw Performed By: #### 5 [id number] #### [facility] [address] Nucleated RBC/100 WBC Ratio (Bld) 0 % Normal 0-0 The [facility] Comment on above: Order Comment: No: D o not add to previous draw Performed By: #### 5 [id number] #### [facility] [address] [place] [address], [facility] PLAT CNT 227 10*3/uL Normal 150-400 The [facility] Comment on above: Order Comment: No: D o not add to previous draw Performed By: #### 5 0608 #### [facility] [address] [place] [address], [facility] RBC #/vol (Bld) 3.97 10*6/uL Normal 3.80-5.00 [facility] Comment on above: Order Comment: No: D o not add to previous draw Performed By: #### 5 [id number] #### [facility] [address] WBC #/vol (Bld) 5.55 10*3/uL Normal 4.00-10.60 [facility] Comment on above: Order Comment: No: D o not add to previous draw Performed By: #### 5 [id number] #### [facility] [address] Cardiovascular Lab Reporton 11-20-2018 Cardiovascular Lab Report [facility] Patient Name: Bubba [facility] Sheila MR #: [id number] Department of Physician: Bong Bolivar Shellie Gaspar M.D. Division of Service Date: 11/20/2018 Cardiology Birthdate: 1950 Adult Cardiovascular Room #: 3AB [id number] [facility] [address] [facility] [place] [address] Cardiovascular Laboratory Report INDICATION: The patient is a 68-year-old woman who was evaluated in Cardiology Clinic because of new onset symptoms of shortness of breath on mild exertion. Her stress test showed evidence of pwaql-[id number] area of inferoapical ischemia; because of that, she was referred for cardiac catheterization. PROCEDURES: 1. Right heart catheterization. 2. Bilateral selective coronary angiography. 3. Limited right femoral angiography. METHOD: Procedure was explained patient with risks and benefits. She signed informed consent. 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 The right groin area was prepped and draped in usual fashion. Using micropuncture technique, the right common femoral artery was accessed. The inner cannula was advanced. Limited femoral angiography was performed followed by upsizing to a 6-Niuean x 11 cm sheath. Access was also obtained using the same technique in the right common femoral vein and a 6-Niuean x 11 cm sheath was placed. A 6-Niuean Michel catheter was used for right heart catheterization with measurement of pressures and calculation of cardiac output using the estimated Ivory method. Michel catheter was removed. Bilateral selective coronary angiography was then performed using 6-Niuean JL4 and JR4 diagnostic catheters. Catheters were [...] Gaspar M.D. Date Trans: 11/20/2018 09:31 Cyndy/alvina [id number] cc: Krzysztof Harp M.D. [address] [facility] [id number] Normal The [facility] BASIC METABOLIC PANELon 11-08 Calcium mass conc 9.5 mg/dL Normal 8.6-10.3 The [facility] Comment on above: Order Comment: No: D o not add to previous draw Performed By: #### 0 0071 #### [facility] [address] [place] [address], [place] Chloride molar conc 105 mmol/L Normal 98-107 The [facility] Comment on above: Order Comment: No: D o not add to previous draw Performed By: #### 0 0071 #### [facility] [address] [place] [address], [place] CO2 molar conc 24 mmol/L Normal 21-31 The [facility] Comment on above: Order Comment: No: D o not add to previous draw Performed By: #### 0 0071 #### [facility] [address] [place] [address], [place] Creatinine mass conc 1.42 mg/dL High 0.60-1.20 [facility] Comment on above: Order Comment: No: D o not add to previous draw Performed By: #### 0 0071 #### [facility] [address] [place] [address], [place] GFR/1.73 sq M predicted among blacks MDRD vol rate/area (S/P/Bld) 45 ml/min/1.73sq m Abnormal >60 The [facility] Comment on above: Order Comment: No: D o not add to previous draw Performed By: #### 0 0071 #### [facility] [address] [place] [address], [place] GFR/1.73 sq M predicted among non-blacks MDRD vol rate/area (S/P/Bld) 36 ml/min/1.73sq m Abnormal >60 The [facility] Comment on above: Order Comment: No: D o not add to previous draw Performed By: #### 0 0071 #### [facility] [address] [place] [address], [place] Glucose mass conc 86 mg/dL Normal 70-100 The [facility] Comment on above: Order Comment: No: D o not add to previous draw Performed By: #### 0 0071 #### [facility] [address] [place] [address], [facility] Potassium molar conc 4.2 mmol/L Normal 3.5-5.1 The [facility] Comment on above: Order Comment: No: D o not add to previous draw Performed By: #### 0 0071 #### [facility] [address] [place] [address], [facility] Sodium molar conc 138 mmol/L Normal 136-145 The [facility] Comment on above: Order Comment: No: D o not add to previous draw Performed By: #### 0 0071 #### [facility] [address] [place] [address], [facility] Urea nitrogen mass conc 19 mg/dL Normal 7-25 The [facility] Comment on above: Order Comment: No: D o not add to previous draw Performed By: #### 0 0071 #### [facility] [address] [place] [address], [facility] CBC COMPLETE BLOOD COUNTon 0 - Erythrocyte distribution width Ratio (RBC) 13.0 % Normal 11.5-15.0 [facility] Comment on above: Order Comment: No: D o not add to previous draw Performed By: #### 5 [id number] #### [facility] [address] [place] [address], [facility] Hematocrit Volume Fraction (Bld) 38.3 % Normal 36.0-45.0 The [facility] Comment on above: Order Comment: No: D o not add to previous draw Performed By: #### 5 [id number] #### [facility] [address] [place] [address], [facility] Hemoglobin mass conc (Bld) 12.6 g/dL Normal 12.0-15.0 The [facility] Comment on above: Order Comment: No: D o not add to previous draw Performed By: #### 5 [id number] #### [facility] [address] [facility] Entitic mass (RBC) 31.1 pg Normal 27.0-33.0 The [facility] Comment on above: Order Comment: No: D o not add to previous draw Performed By: #### 5 [id number] #### [facility] [address] [place] [address], [facility] MCHC mass conc (RBC) 32.9 g/dL Normal 32.0-35.0 The [facility] Comment on above: Order Comment: No: D o not add to previous draw Performed By: #### [id number] #### [facility] [address] [place] [address], [facility] MCV Entitic volume (RBC) 94.6 fL Normal 82.0-98.0 The [facility] Comment on above: Order Comment: No: D o not add to previous draw Performed By: #### [id number] #### [facility] [address] Nucleated RBC/100 WBC Ratio (Bld) 0 % Normal 0-0 The [facility] Comment on above: Order Comment: No: D o not add to previous draw Performed By: #### 5 [id number] #### [facility] [address] [place] [address], [facility] PLAT CNT 266 10*3/uL Normal 150-400 The [facility] Comment on above: Order Comment: No: D o not add to previous draw Performed By: #### 5 [id number] #### [facility] [address] [place] [address], [facility] RBC #/vol (Bld) 4.05 10*6/uL Normal 3.80-5.00 The [facility] Comment on above: Order Comment: No: D o not add to previous draw Performed By: #### 5 [id number] #### [facility] [address] [place] [address], [facility] WBC #/vol (Bld) 9.01 10*3/uL Normal 4.00-10.60 [facility] Comment on above: Order Comment: No: D o not add to previous draw Performed By: #### 5 [id number] #### [facility] [address] PROTHROMBIN TIMEon 9 INR Coag RelTime (PPP) 1.07 {INR} Normal 0.91-1.16 The [facility] Comment on above: Order Comment: No: D [...] 1995;108:231S-246S. Performed By: #### [id number] #### [facility] [address] Prothrombin time (PT) Coag time (PPP) 13.9 s Normal 12.3-14.8 The [facility] Comment on above: Order Comment: No: D o not add to previous draw Result Comment: ALL RESULTS MUST BE INTERPRETED WITH RESPECT TO BLOOD DRAWING ARTIFACT OR DILUTION ERROR OF ANTICOAGULANT AT THE TIME OF SAMPLING. Performed By: #### 5 [id number] #### [facility] [address] [place], [place] [address] Encounters Encounter Date Encounter Type Care Provider Facility Start: 01-16-2023 ambulatory JN GARCIA . Facility :[facility] Start: 01-15-2023 End: 01-15-2023 ambulatory APRIL CASTANEDA . Facility:[facility] Start: 01-10-2023 End: 01-11-[address] KRZYSZTOF HARP . Facility:[facility] Start: 12-15-2022 End: 12-15-2022 ambulatory APRIL CASTANEDA . Facility:[facility] Start: 12-15-[address] [facility] Start: 12-05-2022 End: 12-06-[address] KRZYSZTOF [...] End: 11-20-2018 Patient encounter procedure PROVIDER UNKNOWN Facility:[facility] Start: 11-13-2018 End: 11-14-2018 Patient encounter procedure DEFAULT PHYSICIAN Facility:[facility] Start: 10-31-2018 End: 11-01-2018 Patient encounter procedure DEFAULT PHYSICIAN Facility:[facility] Start: 09-23-2018 End: 09-24-2018 Patient encounter procedure DEFAULT PHYSICIAN Facility:[facility] Start: 09-05-2018 End: 09-06-2018 Patient encounter procedure DEFAULT PHYSICIAN Facility:[facility] Payers Date Payer Category Payer Unknown [id number] 1950 Unknown [id number] 2.16.8 40.1.100816.3.579.2.647 1950 Unknown [id number] 2.16.8 40.1.365057.3.579.2.647 1950 Unknown [id number] 2.16.8 40.1.409866.3.579.2.647 1950 Unknown [id number] 2.16.8 40.1.569954.3.579.2.647 1950 Unknown [id number] 2.16.8 40.1.530939.3.579.2.647 1950 Unknown [id number] 2.16.84 0.1.409507.3.579.2.593 1950 Unknown [id number] 2.16.84 0.1.037204.3.579.2.593 1950 Unknown [id number] 2.16.84 0.1.619335.3.579.2.593 1950 Unknown [id number] 2.16.84 0.1.081353.3.579.2.593 1950 Unknown [id number] 2.16.84 0.1.092052.3.579.2.593 1948 Unknown [id number] 2.16.84 0.1.110140.3.579.2. 1950 Unknown [id number] 2.16.84 0.1.896040.3.579.2.593 1948 Unknown [id number] 2.16.84 0.1.590955.3.579.2.593 1948 Unknown [id number] 2.16.84 0.1.213497.3.579.2.593 1948 Unknown [id number] 2.16.84 0.1.151828.3.579.2.593 1948 Unknown [id number] 2.16.84 0.1.823174.3.579.2.593 1948 Unknown [id number] 2.16.84 0.1.054855.3.579.2.593 1948 Unknown [id number] 2.16.84 0.1.893804.3.579.2.593 1948 Unknown [id number] 2.16.84 0.1.155883.3.579.2.593 1948 Unknown [id number] 2.16.84 0.1.788686.3.579.2.593 1948 Unknown [id number] 2.16.84 0.1.228244.3.579.2.593 1948 Unknown [id number] 2.16.84 0.1.885125.3.579.2.593 1948 Unknown [id number] 2.16.84 0.1.367397.3.579.2.593 1950 Unknown [id number] 2.16.84 0.1.496247.3.579.2.593 Medicare [id number] Unknown Progress note 12-15-2022 Note Date & [...] She will be (more content not included)... [facility] Progress note 12-15-2022 Note Date & Type Note Facility 12-15-2022 Note Review of Systems Cardiovascular: Positive for leg swelling. Respiratory: Positive for shortness of breath. Skin: Positive for color change. Neurological: Positive for headaches. All other systems reviewed and are negative. [facility] Clinical Note 07-25-2022 Note Date & Type [...] by: VISHNU MARIE Date: 2022-07-25 13:25 [facility] Clinical Note 05-11-2022 Note Date & [...] by: VISHNU MARIE Date: 2022-05-11 12:51 [facility] Clinical Note 02-14-2022 Note Date & Type Note Facility 02-14-2022 Note PROCEDURE: XR KNEE L T 4V or > COMPARISON: None. HISTORY: Osteoarthritis FINDINGS: BONES:No fracture, acute abnormality, or significant arthropathy. SOFT TISSUES:Negative. No visible soft tissue swelling. EFFUSION:Moderate suprapatellar joint effusion OTHER: Negative. IMPRESSION: Moderate joint effusion Electronically authenticated by: GODWIN BECK Date: 2022-02-14 17:30 [facility] Summary Purpose Family History No Family History Records FoundNo Family History Records FoundNo Family History Records Found Advance Directives No Advanced Directives Records FoundNo Advanced Directives Records FoundNo Advanced Directives Records Found Additional Source Comments INFORMATION SOURCE (unrecogn ized section and content) DATE CREATED AUTHOR 11/24/2018 [facility] DATE CREATED AUTHOR AUTHOR'S ORGANIZ ATION 12/19/2022 [facility] DATE CREATED AUTHOR AUTHOR'S ORGANIZ ATION 01/18/2023 [facility] FOR RECORDS PERTAINING TO PATIENTS [...] BE BASED ON THE PRIMARY CLINICAL RECORDS. [facility] provides no warranty or guarantee of the accuracy or completeness of information in this document.
[2023-10-08 11:53] LABS: Bilirubin Urine NEGATIVE (NEGATIVE); Blood Urine NEGATIVE (NEGATIVE); Clarity Urine CLEAR (CLEAR); Color Urine LT. YELLOW (YELLOW); Glucose Urine UA NEGATIVE (NEGATIVE); Ketones Urine NEGATIVE (NEGATIVE); Leukocyte Esterase Urine SMALL (NEGATIVE); Nitrite Urine NEGATIVE (NEGATIVE); Protein Urine NEGATIVE (NEG/TRACE); Specific Gravity Urine 1.015 (1.005-1.025); Urobilinogen Urine 0.2 EU/dL (0.2-1.0)
[2023-10-08 11:57] LABS: Basophils Absolute Auto 0.1 10^3/uL (0.0-0.1); Basophils Percent Auto 0.6 % (0.2-2.0); Eosinophils Absolute Auto 0.7 10^3/uL (0.0-0.7); Eosinophils Percent Auto 5.8 % (0.9-7.0); Hematocrit 40.5 % (36.0-48.0); Hemoglobin 12.8 g/dL (12.0-16.0); Immature Granulocytes Abs Auto 0.04 10^3/uL (0.00-0.03); Immature Granulocytes Pct Auto 0.3 % (0.0-0.5); Lymphocytes Absolute Auto 2.6 10^3/uL (1.2-3.8); Lymphocytes Percent Auto 22.9 % (20.5-60.0); Mean Corpuscular HGB Conc 31.6 g/dL (29.9-35.2); Mean Corpuscular Hemoglobin 32.1 pg (26.7-34.0); Mean Corpuscular Volume 101.5 fL (81.0-99.0); Mean Platelet Volume 9.7 fL (9.5-13.5); Monocytes Absolute Auto 0.9 10^3/uL (0.3-0.8); Monocytes Percent Auto 7.7 % (1.7-12.0); Neutrophils Absolute Auto 7.2 10^3/uL (1.4-6.5); Neutrophils Percent Auto 62.7 % (43.0-75.0); Platelet Count 263 10^3/uL (150-450); Red Blood Count 3.99 10^6/uL (4.20-5.40); White Blood Count 11.5 10^3/uL (4.0-11.0)
--- NOTE | 2023-10-08 11:57 | XR_ITS ---
The [address] [address] Patient Name: EDIN SAMANIEGO MRN: [id number] date: 1950 Sex: F Assigned Patient Location: LAB Current Patient Location: LAB Accession/Order Number: [id number] Exam Date: 10/08/2023 12:05 Report Date: 10/08/2023 12:29 At the request of: KRZYSZTOF THOMPSON Procedure: XR chest 2V EXAM: XR chest 2V HISTORY: Left Leg Edema R60.0 chronic shortness of breath COMPARISON: Chest study dated 11/24/2022 TECHNIQUE: PA and lateral views of the chest were obtained. FINDINGS: Heart and mediastinal contours are unremarkable in appearance. No acute infiltrate or consolidations are seen. Mild COPD. Mild prominence and coarsening of interstitial markings like representing fibrotic changes. Mild degenerative changes in the dorsal spine with mild convexity to the right. XR/XR chest 2V IMPRESSION: Mild COPD. Likely mild chronic fibrotic changes. No obvious focal infiltrate or consolidation seen. Electronically authenticated by: MISHEL HEMPHILL Date: 10/08/2023 12:29
[2023-10-08 12:01] LABS: Bacteria Urine TRACE #/HPF (NONE SEEN); Cast Seen? NONE SEEN #/LPF (NONE SEEN); Crystals Seen? None Seen #/HPF (None Seen); Mucus Urine NONE SEEN (NONE SEEN); RBC Urine NONE SEEN #/HPF (0-2); Squamous Epithelial Cell Urine FEW #/LPF (NONE/RARE); Urine Culture Indicated ALREADY ORDERED
[2023-10-08 13:01] LABS: Alanine Aminotransferase 23 U/L (14-59); Albumin Globulin Ratio 0.6; Albumin Level 3.1 g/dL (3.4-5.0); Alkaline Phosphatase 125 U/L (46-116); Anion Gap 12.7; Aspartate Amino Transferase 20 U/L (15-37); BUN Creatinine Ratio 18.1; Bilirubin Total 0.4 mg/dL (0.2-1.0); Calcium 9.7 mg/dL (8.5-10.1); Carbon Dioxide 27.6 mmol/L (21.0-32.0); Chloride 105 mmol/L (98-107); Estimated GFR (African America 28 (>=60); Estimated GFR (Non-African Ame 23 (>=60); Globulin 4.8 g/dL; Glucose 111 mg/dL (74-106); Potassium 5.3 mmol/L (3.5-5.1); Sodium 140 mmol/L (136-145); Total Protein 7.9 g/dL (6.4-8.2)
[2023-10-08 13:22] LABS: Troponin I High Sensitivity 5.7 pg/mL (4.0-51.3)
== END 2023-10-08 11:41 | disposition home or self-care (01) ==
LOC: LAB 11:41
PROVIDERS: PCP Family Medicine; Visit Provider Family Medicine
DX: R60.0 Localized edema (principal); J44.9 Chronic obstructive pulmonary disease, unspecified; I11.0 Hypertensive heart disease with heart failure; I50.9 Heart failure, unspecified; R82.89 Other abnormal findings on cytological and histological examination of urine
CPT/HCPCS: 36415; 71046; 80053; 81001; 83880; 84484; 85025; 87086

== ENCOUNTER 2023-10-27 12:45 | Outpatient (OUT) | payer MEDICARE, SELFPAY ==
--- NOTE | 2023-10-27 12:47 | US_ITS ---
The [address] [address] Patient Name: EDIN SAMANIEGO MRN: [id number] date: 1950 Sex: F Assigned Patient Location: Current Patient Location: Accession/Order Number: [id number] Exam Date: 10/27/2023 12:48 Report Date: 10/28/2023 08:36 At the request of: KRZYSZTOF THOMPSON Procedure: US renal bladder EXAMINATION: US renal bladder HISTORY: Acute UTI N39.0 ; bladder pain COMPARISON: No relevant comparison available. TECHNIQUE: Ultrasound examination was performed of the kidneys and urinary bladder. FINDINGS: RIGHT KIDNEY: Mild prominence of a few calyces and increased echogenicity of the fluid suggestive of debris within the calyces/renal pelvis no abnormal dilation of the renal pelvis. Color Doppler demonstrates blood flow within the kidney. Mild cortical thinning; likely age related. Kidney: 7.1 x 3.6 x 4.4 cm LEFT KIDNEY: No evidence of pelvocaliectasis, mass, or calculi. Normal renal cortical parenchymal echogenicity. Mild cortical thinning; likely age related. Color Doppler demonstrates blood flow within the kidney. Kidney: 8.3 x 3.9 x 4.7 cm BLADDER: No visible wall thickening, mass, or calculi. Post void residual: 0 mL URETERAL JETS: Not seen during 4 minutes evaluation. US/US renal bladder IMPRESSION: 1. There appears to be mildly dilated right renal calyces and some debris within the calyces and renal pelvis; nonspecific but given patient's urinary tract infection this is suggestive of pyelonephritis. Electronically authenticated by: DANIEL PINEDA Date: 10/28/2023 08:36
--- OUTSIDE RECORDS SUMMARY | 2023-10-27 12:48 | XMS_ITS | CCD ---
Author Name Unknown Address [address] [place] [address] Organization [facility] Care Team Providers Care Orchid Superintendent Name Role Phone PHYSICIAN, DEFAULT Admitting Unavailable [...] Unavailable HOY ., DR BLANKENSHIP Admitting Unavailable SEBEKA, DR GODWIN [employer] Unavailable HOY ., [...] DR BLANKENSHIP Admmilton Unavailable ZIEBER, DR VISHNU Earzo [employer] Unavailable HOY ., DR BLANKENSHIP Admmilton [...] Morphine; 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: [MORPHINE] Drug Allergy 7 [facility] Repository (3 sources) NSAIDs; 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: [NSAIDS (NON-STEROIDAL ANTI-INFLAMMATORY DRUG)] Drug allergy (disorder) 9 [facility] Repository (1 source) Penicillin Drug Allergy 9 [facility] Repository (1 source) predniSONE Drug Allergy 9 [facility] Repository (2 sources) Iodinated Contrast- Oral and IV Dye Drug allergy (disorder) 5 [facility] Repository (2 sources) Penicillins; 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: [PENICILLINS] Propensity to adverse reactions to drug (disorder) 5 [facility] Repository (1 source) IODINATED CONTRAST MEDIA; 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: [IODINATED CONTRAST MEDIA] Propensity to adverse reactions to drug (disorder) 3 [facility] Repository (1 source) levoFLOXacin Drug Allergy 3 [facility] Repository (1 source) meloxicam Drug Allergy 3 [facility] Repository Problems Active Problems Problem Classification Problem [...] Onset: 01-17-2023 Chronic Other aftercare (2 sources) senior living (current) use of aspirin; 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: [[facility] (CURRENT) USE OF ASPIRIN] Onset: 11-19-2018 Episodic Other aftercare (1 source) Other [facility] (current) drug therapy; 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: [OTH SKETCHER CURRENT DRUG THERAPY] Onset: 01-17-2023 Episodic Other [...] VISHNU MARIE Date: 2023-01-15 08:25 Normal [facility] XR ANKLE LT MIN 3 Von 2022 [...] GONZALEZ PATEL Date: 2023-01-15 07:28 Normal [facility] VITAMIN B1 (THIAMINE)on Vit. B1, Whole Blood 118.1 nmol/L Normal 66.5-200.0 Th [facility] Comment on above: Performed By: #### C BC #### [facility] [address] [place] [address] Dr. Ekta Funk BNPon 01-10-2023 Natriuretic peptide B (Bld) [Mass/Vol] 980.0 pg/mL Critically high <=900.0 [facility] Comment on above: Performed By: #### C VDTBH #### [facility] [address] [place] [address] Dr. Ekta Funk CBC AUTO DIFFon 01-10-2023 BASO # 0.1 103/ul Normal 0.0-0.1 [facility] Comment on above: Performed By: #### C MP #### [facility] [address] [place] [address] Dr. Ekta Funk Basophils/100 WBC (Bld) 1.0 % Normal 0.2-2.0 [facility] Comment on above: Performed By: #### C MP #### [facility] [address] [place] [address] Dr. Ekta Funk EO # 0.4 103/ul Normal 0.0-0.7 [facility] Comment on above: Performed By: #### C MP #### [facility] [address] [place] [address] Dr. Ekta Funk Eosinophils/100 WBC (Bld) 3.7 % Normal 0.9-7.0 [facility] Comment on above: Performed By: #### C MP #### [facility] [address] [place] [address] Dr. Ekta Funk Erythrocyte distribution width (RBC) [Ratio] 13.2 % Normal 11.0-15.0 [facility] Comment on above: Performed By: #### C MP #### [facility] [address] [place] [address] Dr. Ekta Funk Hematocrit (Bld) [Volume fraction] 35.1 % Critically low 36.0-48.0 [facility] Comment on above: Performed By: #### C MP #### [facility] [address] [place] [address] Dr. Ekta Funk Hemoglobin (Bld) [Mass/Vol] 11.3 g/dL Critically low 12.0-16.0 [facility] Comment on above: Performed By: #### C MP #### [facility] [address] [place] [address] Dr. Ekta Funk IG # 0.04 10e3/ul Critically high 0.00-0.03 [facility] Comment on above: Performed By: #### C MP #### [facility] [address] [place] [address] Dr. Ekta Funk IG % 0.4 % Normal 0.0-0.5 [facility] Comment on above: Performed By: #### C MP #### [facility] [address] [place] [address] Dr. Ekta Funk LYMPH # 2.0 103/ul Normal 1.2-3.8 [facility] Comment on above: Performed By: #### C MP #### [facility] [address] [place] [address] Dr. Ekta Funk Lymphocytes/100 WBC (Bld) 20.8 % Normal 20.5-60.0 [facility] Comment on above: Performed By: #### C MP #### [facility] [address] [place] [address] Dr. Ekta Funk MANUAL DIFF REQ NO Normal [facility] Comment on above: Performed By: #### C MP #### [facility] [address] [place] [address] Dr. Ekta Funk MCH (RBC) [Entitic mass] 32.3 pg Normal 26.7-34.0 [facility] Comment on above: Performed By: #### C MP #### [facility] [address] [place] [address] Dr. Ekta Funk MCHC (RBC) [Mass/Vol] 32.2 g/dL Normal 29.9-35.2 [facility] Comment on above: Performed By: #### C MP #### [facility] [address] [place] [address] Dr. Ekta Funk MCV (RBC) [Entitic vol] 100.3 fL Critically high 81.0-99.0 [facility] Comment on above: Performed By: #### C MP #### [facility] [address] [place] [address] Dr. Ekta Funk MONO # 0.8 103/ul Normal 0.3-0.8 [facility] Comment on above: Performed By: #### C MP #### [facility] [address] [place] [address] Dr. Ekta Funk Monocytes/100 WBC (Bld) 7.9 % Normal 1.7-12.0 [facility] Comment on above: Performed By: #### C MP #### [facility] [address] [place] [address] Dr. Ekta Funk NEUT # 6.4 103/ul Normal 1.4-6.5 [facility] Comment on above: Performed By: #### C MP #### [facility] [address] [place] [address] Dr. Ekta Funk Neutrophils/100 WBC (Bld) 66.2 % Normal 43.0-75.0 [facility] Comment on above: Performed By: #### C MP #### [facility] [address] [place] [address] Dr. Ekta Funk Platelet mean volume (Bld) [Entitic vol] 9.6 fL Normal 9.5-13.5 [facility] Comment on above: Performed By: #### C MP #### [facility] [address] [place] [address] Dr. Ekta Funk PLT 255 103/ul Normal 150-450 [facility] Comment on above: Performed By: #### C MP #### [facility] [address] [address] [address] Ekta Funk RBC 3.50 106/ul Critically low 4.20-5.40 [facility] Comment on above: Performed By: #### C MP #### [facility] [address] [address] [address] Ekta Funk WBC 9.7 103/ul Normal 4.0-11.0 [facility] Comment on above: Performed By: #### C MP #### [facility] [address] [address] [address] Ekta Funk CRPon 01-10-2023 CRP [Mass/Vol] mg/L Normal <=1.0 [facility] Comment on above: Performed By: #### C BC #### [facility] [address] [place] [address] Dr. Ekta Funk FREE THYROXINE INDEX T7on FTI 2.62 Normal 1.30-4.50 [facility] Comment on above: Performed By: #### C BC #### [facility] [address] [place] [address] Dr. Ekta Funk T3U 32.0 % Normal 30.0-39.0 [facility] Comment on above: Performed By: #### C BC #### [facility] [address] [place] [address] Dr. Ekta Funk T4 [Mass/Vol] 8.20 ug/dL Normal 4.80-13.90 [facility] Comment on above: Performed By: #### C BC #### [facility] [address] [place] [address] Dr. Ekta Funk IRONon 01-10-2023 Iron [Mass/Vol] 61.0 ug/dL Normal 50.0-170.0 [facility] Comment on above: Performed By: #### B 12FOL, VITAD, IRON #### [facility] [address] [place] [address] Dr. Ekta Funk PROF 14(COMP METB)on 023 Albumin [Mass/Vol] 2.9 g/dL Critically low 3.4-5.0 [facility] Comment on above: Performed By: #### C VDTBH #### [facility] [address] [address] [address] Ekta Funk Albumin/Globulin [Mass ratio] 0.6 {ratio} Normal [facility] Comment on above: Performed By: #### C VDTBH #### [facility] [address] [address] [address] Ekta Funk ALP [Catalytic activity/Vol] 101 U/L Normal 46-116 [facility] Comment on above: Performed By: #### C VDTBH #### [facility] [address] [place] [address] Dr. Ekta Funk ALT [Catalytic activity/Vol] 16 U/L Normal 14-59 [facility] Comment on above: Performed By: #### C VDTBH #### [facility] [address] [place] [address] Dr. Ekta Funk Anion gap [Moles/Vol] 14.6 mmol/L Normal [facility] Comment on above: Performed By: #### C VDTBH #### [facility] [address] [place] [address] Dr. Ekta Funk AST [Catalytic activity/Vol] 15 U/L Normal 15-37 [facility] Comment on above: Performed By: #### C VDTBH #### [facility] [address] [address] [address] Ekta Funk Bilirubin [Mass/Vol] 0.4 mg/dL Normal 0.2-1.0 [facility] Comment on above: Performed By: #### C VDTBH #### [facility] [address] [address] [address] Ekta Funk Calcium [Mass/Vol] 9.2 mg/dL Normal 8.5-10.1 [facility] Comment on above: Performed By: #### C VDTBH #### [facility] [address] [address] [address] Ekta Fukn Chloride [Moles/Vol] 107 mmol/L Normal 98-107 [facility] Comment on above: Performed By: #### C VDTBH #### [facility] [address] [address] [address] Ekta Funk CO2 [Moles/Vol] 24.4 mmol/L Normal 21.0-32.0 [facility] Comment on above: Performed By: #### C VDTBH #### [facility] [address] [place] [address] Dr. Ekta Funk Creatinine [Mass/Vol] 2.02 mg/dL Critically high 0.55-1.02 [facility] Comment on above: Performed By: #### C VDTBH #### [facility] [address] [place] [address] Dr. Ekta Funk EGFR-AF AUSTRIAN 29 mL/min/1.73m2 Critically low >=60 [facility] Comment on above: Performed By: #### C VDTBH #### [facility] [address] [place] [address] Dr. Ekta Funk EGFR-NON AF AUSTRIAN 24 mL/min/1.73m2 Critically low >=60 [facility] Comment on above: Performed By: #### C VDTBH #### [facility] [address] [place] [address] Dr. Ekta Funk Globulin (S) [Mass/Vol] 4.5 g/dL Normal [facility] Comment on above: Performed By: #### C VDTBH #### [facility] [address] [place] [address] Dr. Ekta Funk Glucose [Mass/Vol] 103 mg/dL Normal 74-106 [facility] Comment on above: Performed By: #### C VDTBH #### [facility] [address] [place] [address] Dr. Ekta Funk Potassium [Moles/Vol] 5.0 mmol/L Normal 3.5-5.1 [facility] Comment on above: Performed By: #### C VDTBH #### [facility] [address] [place] [address] Dr. Ekta Funk Protein [Mass/Vol] 7.4 g/dL Normal 6.4-8.2 [facility] Comment on above: Performed By: #### C VDTBH #### [facility] [address] [place] [address] Dr. Ekta Funk Sodium [Moles/Vol] 141 mmol/L Normal 136-145 [facility] Comment on above: Performed By: #### C VDTBH #### [facility] [address] [place] [address] Dr. Ekta Funk Urea nitrogen [Mass/Vol] 23.0 mg/dL Critically high 7.0-18.0 [facility] Comment on above: Performed By: #### C VDTBH #### [facility] [address] [place] [address] Dr. Ekta Funk Urea nitrogen/Creatinine [Mass ratio] 11.4 mg/mg Normal [facility] Comment on above: Performed By: #### C VDTBH #### [facility] [address] [place] [address] Dr. Ekta Funk TSHon 01-10-2023 TSH 1.793 uIU/mL Normal 0.358-3.740 [facility] Comment on above: Performed By: #### C VDTBH #### [facility] [address] [place] [address] Dr. Ekta Funk VIT B12 AND FOLATEon 023 Cobalamin (Vitamin B12) [Mass/Vol] 175.0 pg/mL Critically low 193.0-986.0 [facility] Comment on above: Performed By: #### B 12FOL, VITAD, IRON #### [facility] [address] [place] [address] Dr. Ekta Funk FOLATE 10.30 ng/mL Normal 8.60-58.90 [facility] Comment on above: Performed By: #### B 12FOL, VITAD, IRON #### [facility] [address] [place] [address] Dr. Ekta Funk VITAMIN D 25 OHon 01-10-2023 VIT D 25-OH 24.0 ng/mL Normal [facility] Comment on above: Performed By: #### B 12FOL, VITAD, IRON #### [facility] [address] [place], [place] [address] Dr. Ekta Funk VIT D RANGES SEE BELOW Normal [facility] Comment on above: Result Comment: <20 ng/mL Vit D deficient 20 - <30 ng/mL Vit D insufficient 30 - 100 ng/mL Vit D sufficient >100 ng/mL Potential Toxicity Performed By: #### B 12FOL, VITAD, IRON #### [facility] [address] [place], [place] [address] Dr. Ekta Funk Office Visiton 12-15-2022 Follow-up visit [id number] Sheila Mac 1950 F Date Provider Department Center 12/15/2022 [id number] RIVERA [facility] No family history on file Level of Service:28234 [place] OFFICE/OUTPATIENT ESTABLISHED MOD MDM 30-39 MIN Reason for Visit and Comments: Follow-up [412096] - Is here f/u stress test pt states she had Bruises all over both legs symptoms stated a week ago also stated legs are swollen and burning Normal [facility] NM STRESS/REST MULTIon 12-05 NM STRESS/REST MULTI Patient: SHEILA MAC Exam Date: 12/05/2022 : 1950 Gender:F Ordering : DR KRZYSZTOF HARP . Admission #: [id number] Family : Order #: [id number] CLICK HERE TO VIEW EXAM RADIOLOGY REPORT [...] Marie M.D. on 12/06/2022 at 07:26 Normal [facility] ECHOCARDIO M/2D COMPLETEon 0 11-27-2022 ECHOCARDIO M/2D COMPLETE Patient: SHEILA MAC Exam Date: 11/27/2022 : 1950 Gender:F Ordering : DR KRZYSZTOF HARP . Admission #: [id number] Family : Order #: [id number] CLICK HERE TO VIEW EXAM ECHOCARDIOGRAM REPORT [...] M.D. on 11/27/2022 at 14:39 Normal [facility] CBC AUTO DIFFon 11-26-2022 BASO # 0.0 103/ul Normal 0.0-0.1 [facility] Comment on above: Performed By: #### I NSULIN #### [facility] [address] [place] [address] Dr. Ekta Funk Basophils/100 WBC (Bld) 0.6 % Normal 0.2-2.0 [facility] Comment on above: Performed By: #### I NSULIN #### [facility] [address] [place] [address] Dr. Ekta Funk EO # 0.3 103/ul Normal 0.0-0.7 [facility] Comment on above: Performed By: #### I NSULIN #### [facility] [address] [place] [address] Dr. Ekta Funk Eosinophils/100 WBC (Bld) 4.8 % Normal 0.9-7.0 [facility] Comment on above: Performed By: #### I NSULIN #### [facility] [address] [address] [address] Ekta Funk Erythrocyte distribution width (RBC) [Ratio] 13.3 % Normal 11.0-15.0 [facility] Comment on above: Performed By: #### I NSULIN #### [facility] [address] [place] [address] Dr. Ekta Funk Hematocrit (Bld) [Volume fraction] 29.1 % Critically low 36.0-48.0 [facility] Comment on above: Performed By: #### I NSULIN #### [facility] [address] [place] [address] Dr. Ekta Funk Hemoglobin (Bld) [Mass/Vol] 9.5 g/dL Critically low 12.0-16.0 [facility] Comment on above: Performed By: #### I NSULIN #### [facility] [address] [address] [address] Ekta Funk IG # 0.07 10e3/ul Critically high 0.00-0.03 [facility] Comment on above: Performed By: #### I NSULIN #### [facility] [address] [address] [address] Ekta Funk IG % 1.0 % Critically high 0.0-0.5 [facility] Comment on above: Performed By: #### I NSULIN #### [facility] [address] [place] [address] Dr. Ekta Funk LYMPH # 1.2 103/ul Normal 1.2-3.8 [facility] Comment on above: Performed By: #### I NSULIN #### [facility] [address] [address] [address] Ekta Funk Lymphocytes/100 WBC (Bld) 17.2 % Critically low 20.5-60.0 [facility] Comment on above: Performed By: #### I NSULIN #### [facility] [address] [place] [address] Dr. Ekta Funk MANUAL DIFF REQ NO Normal [facility] Comment on above: Performed By: #### I NSULIN #### [facility] [address] [address] [address] Ekta Funk MCH (RBC) [Entitic mass] 31.7 pg Normal 26.7-34.0 [facility] Comment on above: Performed By: #### I NSULIN #### [facility] [address] [address] [address] Ekta Funk MCHC (RBC) [Mass/Vol] 32.6 g/dL Normal 29.9-35.2 [facility] Comment on above: Performed By: #### I NSULIN #### [facility] [address] [address] [address] Ekta Funk MCV (RBC) [Entitic vol] 97.0 fL Normal 81.0-99.0 [facility] Comment on above: Performed By: #### I NSULIN #### [facility] [address] [place] [address] Dr. Ekta Funk MONO # 0.8 103/ul Normal 0.3-0.8 [facility] Comment on above: Performed By: #### I NSULIN #### [facility] [address] [address] [address] Ekta Funk Monocytes/100 WBC (Bld) 11.1 % Normal 1.7-12.0 [facility] Comment on above: Performed By: #### I NSULIN #### [facility] [address] [place] [address] Dr. Ekta Funk NEUT # 4.5 103/ul Normal 1.4-6.5 [facility] Comment on above: Performed By: #### I NSULIN #### [facility] [address] [place] [address] Dr. Ekta Funk Neutrophils/100 WBC (Bld) 65.3 % Normal 43.0-75.0 [facility] Comment on above: Performed By: #### I NSULIN #### [facility] [address] [place] [address] Dr. Ekta Funk Platelet mean volume (Bld) [Entitic vol] 9.4 fL Critically low 9.5-13.5 [facility] Comment on above: Performed By: #### I NSULIN #### [facility] [address] [place] [address] Dr. Ekta Funk PLT 263 103/ul Normal 150-450 [facility] Comment on above: Performed By: #### I NSULIN #### [facility] [address] [place] [address] Dr. Ekta Funk RBC 3.00 106/ul Critically low 4.20-5.40 [facility] Comment on above: Performed By: #### I NSULIN #### [facility] [address] [place] [address] Dr. Ekta Funk WBC 6.9 103/ul Normal 4.0-11.0 [facility] Comment on above: Performed By: #### I NSULIN #### [facility] [address] [place] [address] Dr. Ekta Funk PROF 14(COMP METB)on 023 Albumin [Mass/Vol] 2.2 g/dL Critically low 3.4-5.0 [facility] Comment on above: Performed By: #### C MP #### [facility] [address] [place] [address] Dr. Ekta Funk Albumin/Globulin [Mass ratio] 0.6 {ratio} Normal [facility] Comment on above: Performed By: #### C MP #### [facility] [address] [place] [address] Dr. Ekta Funk ALP [Catalytic activity/Vol] 82 U/L Normal 46-116 [facility] Comment on above: Performed By: #### C MP #### [facility] [address] [place] [address] Dr. Ekta Funk ALT [Catalytic activity/Vol] 13 U/L Critically low 14-59 [facility] Comment on above: Performed By: #### C MP #### [facility] [address] [place] [address] Dr. Ekta Funk Anion gap [Moles/Vol] 14.0 mmol/L Normal [facility] Comment on above: Performed By: #### C MP #### [facility] [address] [place] [address] Dr. Ekta Funk AST [Catalytic activity/Vol] 18 U/L Normal 15-37 [facility] Comment on above: Performed By: #### C MP #### [facility] [address] [place] [address] Dr. Ekta Funk Bilirubin [Mass/Vol] 0.4 mg/dL Normal 0.2-1.0 [facility] Comment on above: Performed By: #### C MP #### [facility] [address] [place] [address] Dr. Ekta Funk Calcium [Mass/Vol] 8.6 mg/dL Normal 8.5-10.1 [facility] Comment on above: Performed By: #### C MP #### [facility] [address] [address] [address] Ekta Funk Chloride [Moles/Vol] 108 mmol/L Critically high 98-107 [facility] Comment on above: Performed By: #### C MP #### [facility] [address] [address] [address] Ekta Funk CO2 [Moles/Vol] 19.6 mmol/L Critically low 21.0-32.0 [facility] Comment on above: Performed By: #### C MP #### [facility] [address] [place] [address] Dr. Ekta Funk Creatinine [Mass/Vol] 1.70 mg/dL Critically high 0.55-1.02 [facility] Comment on above: Performed By: #### C MP #### [facility] [address] [place] [address] Dr. Ekta Funk EGFR-AF AUSTRIAN 36 mL/min/1.73m2 Critically low >=60 [facility] Comment on above: Performed By: #### C MP #### [facility] [address] [place] [address] Dr. Ekta Funk EGFR-NON AF AUSTRIAN 29 mL/min/1.73m2 Critically low >=60 [facility] Comment on above: Performed By: #### C MP #### [facility] [address] [address] [address] Ekta Funk Globulin (S) [Mass/Vol] 3.6 g/dL Normal [facility] Comment on above: Performed By: #### C MP #### [facility] [address] [address] [address] Ekta Funk Glucose [Mass/Vol] 103 mg/dL Normal 74-106 [facility] Comment on above: Performed By: #### C MP #### [facility] [address] [address] [address] Ekta Funk Potassium [Moles/Vol] 4.6 mmol/L Normal 3.5-5.1 [facility] Comment on above: Performed By: #### C MP #### [facility] [address] [place] [address] Dr. Ekta Funk Protein [Mass/Vol] 5.8 g/dL Critically low 6.4-8.2 [facility] Comment on above: Performed By: #### C MP #### [facility] [facility] [address] [place] [address] Dr. Ekta Funk Sodium [Moles/Vol] 137 mmol/L Normal 136-145 [facility] Comment on above: Performed By: #### C MP #### [facility] [address] [place] [address] Dr. Ekta Funk Urea nitrogen [Mass/Vol] 26.0 mg/dL Critically high 7.0-18.0 [facility] Comment on above: Performed By: #### C MP #### [facility] [address] [place] [address] Dr. Ekta Funk Urea nitrogen/Creatinine [Mass ratio] 15.3 mg/mg Normal [facility] Comment on above: Performed By: #### C MP #### [facility] [address] [place] [address] Dr. Etka Funk CBC AUTO DIFFon 11-25-2022 BASO # 0.1 103/ul Normal 0.0-0.1 [facility] Comment on above: Performed By: #### C BC #### [facility] [address] [place] [address] Dr. Ekta Funk Basophils/100 WBC (Bld) 0.7 % Normal 0.2-2.0 [facility] Comment on above: Performed By: #### C BC #### [facility] [address] [place] [address] Dr. Ekta Funk EO # 0.3 103/ul Normal 0.0-0.7 [facility] Comment on above: Performed By: #### C BC #### [facility] [address] [place] [address] Dr. Ekta Funk Eosinophils/100 WBC (Bld) 3.4 % Normal 0.9-7.0 [facility] Comment on above: Performed By: #### C BC #### [facility] [address] [place] [address] Dr. Ekta Funk Erythrocyte distribution width (RBC) [Ratio] 13.6 % Normal 11.0-15.0 [facility] Comment on above: Performed By: #### C BC #### [facility] [address] [place] [address] Dr. Ekta Funk Hematocrit (Bld) [Volume fraction] 32.1 % Critically low 36.0-48.0 [facility] Comment on above: Performed By: #### C BC #### [facility] [address] [place] [address] Dr. Ekta Funk Hemoglobin (Bld) [Mass/Vol] 10.3 g/dL Critically low 12.0-16.0 [facility] Comment on above: Performed By: #### C BC #### [facility] [address] [place] [address] Dr. Ekta Funk IG # 0.08 10e3/ul Critically high 0.00-0.03 [facility] Comment on above: Performed By: #### C BC #### [facility] [address] [place] [address] Dr. Ekta Funk IG % 0.9 % Critically high 0.0-0.5 [facility] Comment on above: Performed By: #### C BC #### [facility] [address] [place] [address] Dr. Ekta Funk LYMPH # 0.9 103/ul Critically low 1.2-3.8 [facility] Comment on above: Performed By: #### C BC #### [facility] [address] [place] [address] Dr. Ekta Funk Lymphocytes/100 WBC (Bld) 10.7 % Critically low 20.5-60.0 [facility] Comment on above: Performed By: #### C BC #### [facility] [address] [place] [address] Dr. Ekta Funk MANUAL DIFF REQ NO Normal [facility] Comment on above: Performed By: #### C BC #### [facility] [address] [place] [address] Dr. Ekta Funk MCH (RBC) [Entitic mass] 32.2 pg Normal 26.7-34.0 [facility] Comment on above: Performed By: #### C BC #### [facility] [address] [place] [address] Dr. Ekta Funk MCHC (RBC) [Mass/Vol] 32.1 g/dL Normal 29.9-35.2 [facility] Comment on above: Performed By: #### C BC #### [facility] [address] [place] [address] Dr. Ekta Funk MCV (RBC) [Entitic vol] 100.3 fL Critically high 81.0-99.0 [facility] Comment on above: Performed By: #### C BC #### [facility] [address] [place] [address] Dr. Ekta Funk MONO # 0.9 103/ul Critically high 0.3-0.8 [facility] Comment on above: Performed By: #### C BC #### [facility] [address] [place] [address] Dr. Ekta Funk Monocytes/100 WBC (Bld) 9.9 % Normal 1.7-12.0 [facility] Comment on above: Performed By: #### C BC #### [facility] [address] [place] [address] Dr. Ekta Funk NEUT # 6.4 103/ul Normal 1.4-6.5 [facility] Comment on above: Performed By: #### C BC #### [facility] [address] [place] [address] Dr. Ekta Funk Neutrophils/100 WBC (Bld) 74.4 % Normal 43.0-75.0 [facility] Comment on above: Performed By: #### C BC #### [facility] [address] [place] [address] Dr. Ekta Funk Platelet mean volume (Bld) [Entitic vol] 9.5 fL Normal 9.5-13.5 [facility] Comment on above: Performed By: #### C BC #### [facility] [address] [place] [address] Dr. Ekta Funk PLT 267 103/ul Normal 150-450 [facility] Comment on above: Performed By: #### C BC #### [facility] [address] [address] [address] Ekta Funk RBC 3.20 106/ul Critically low 4.20-5.40 [facility] Comment on above: Performed By: #### C BC #### [facility] [address] [address] [address] Ekta Funk WBC 8.6 103/ul Normal 4.0-11.0 [facility] Comment on above: Performed By: #### C BC #### [facility] [address] [place] [address] Dr. Ekat Funk BASO # 0.1 103/ul Normal 0.0-0.1 [facility] Comment on above: Performed By: #### C MP #### [facility] [address] [place] [address] Dr. Ekta Funk Basophils/100 WBC (Bld) 0.7 % Normal 0.2-2.0 [facility] Comment on above: Performed By: #### C MP #### [facility] [address] [place] [address] Dr. Ekta Funk EO # 0.3 103/ul Normal 0.0-0.7 [facility] Comment on above: Performed By: #### C MP #### [facility] [address] [place] [address] Dr. Ekta Funk Eosinophils/100 WBC (Bld) 3.9 % Normal 0.9-7.0 [facility] Comment on above: Performed By: #### C MP #### [facility] [address] [place] [address] Dr. Ekta Funk Erythrocyte distribution width (RBC) [Ratio] 13.2 % Normal 11.0-15.0 [facility] Comment on above: Performed By: #### C MP #### [facility] [address] [address] [address] Ekta Funk Hematocrit (Bld) [Volume fraction] 28.0 % Critically low 36.0-48.0 [facility] Comment on above: Performed By: #### C MP #### [facility] [address] [address] [address] Ekta Funk Hemoglobin (Bld) [Mass/Vol] 9.3 g/dL Critically low 12.0-16.0 [facility] Comment on above: Performed By: #### C MP #### [facility] [address] [address] [address] Ekta Funk IG # 0.08 10e3/ul Critically high 0.00-0.03 [facility] Comment on above: Performed By: #### C MP #### [facility] [address] [address] [address] Ekta Funk IG % 1.1 % Critically high 0.0-0.5 [facility] Comment on above: Performed By: #### C MP #### [facility] [address] [address] [address] Ekta Funk LYMPH # 0.9 103/ul Critically low 1.2-3.8 [facility] Comment on above: Performed By: #### C MP #### [facility] [address] [address] [address] Ekta Funk Lymphocytes/100 WBC (Bld) 12.1 % Critically low 20.5-60.0 [facility] Comment on above: Performed By: #### C MP #### [facility] [address] [address] [address] Ekta Funk MANUAL DIFF REQ NO Normal [facility] Comment on above: Performed By: #### C MP #### [facility] [address] [place] [address] Dr. Ekta Funk MCH (RBC) [Entitic mass] 32.0 pg Normal 26.7-34.0 [facility] Comment on above: Performed By: #### C MP #### [facility] [address] [address] [address] Ekta Funk MCHC (RBC) [Mass/Vol] 33.2 g/dL Normal 29.9-35.2 [facility] Comment on above: Performed By: #### C MP #### [facility] [address] [address] [address] Ekta Funk MCV (RBC) [Entitic vol] 96.2 fL Normal 81.0-99.0 [facility] Comment on above: Performed By: #### C MP #### [facility] [address] [address] [address] Ekta Funk MONO # 0.7 103/ul Normal 0.3-0.8 [facility] Comment on above: Performed By: #### C MP #### [facility] [address] [place] [address] Dr. Ekta Funk Monocytes/100 WBC (Bld) 9.8 % Normal 1.7-12.0 [facility] Comment on above: Performed By: #### C MP #### [facility] [address] [address] [address] Ekta Funk NEUT # 5.2 103/ul Normal 1.4-6.5 [facility] Comment on above: Performed By: #### C MP #### [facility] [address] [place] [address] Dr. Ekta Funk Neutrophils/100 WBC (Bld) 72.4 % Normal 43.0-75.0 [facility] Comment on above: Performed By: #### C MP #### [facility] [address] [place] [address] Dr. Ekta Funk Platelet mean volume (Bld) [Entitic vol] 9.4 fL Critically low 9.5-13.5 [facility] Comment on above: Performed By: #### C MP #### [facility] [address] [place] [address] Dr. Ekta Funk PLT 250 103/ul Normal 150-450 [facility] Comment on above: Performed By: #### C MP #### [facility] [address] [place] [address] Dr. Ekta Funk RBC 2.91 106/ul Critically low 4.20-5.40 [facility] Comment on above: Performed By: #### C MP #### [facility] [address] [address] [address] Ekta Funk WBC 7.2 103/ul Normal 4.0-11.0 [facility] Comment on above: Performed By: #### C MP #### [facility] [address] [place] [address] Dr. Ekta Funk PROF 14(COMP METB)on 023 Albumin [Mass/Vol] 2.1 g/dL Critically low 3.4-5.0 [facility] Comment on above: Performed By: #### C MP #### [facility] [address] [place] [address] Dr. Ekta Funk Albumin/Globulin [Mass ratio] 0.6 {ratio} Normal [facility] Comment on above: Performed By: #### C MP #### [facility] [address] [place] [address] Dr. Ekta Funk ALP [Catalytic activity/Vol] 68 U/L Normal 46-116 [facility] Comment on above: Performed By: #### C MP #### [facility] [address] [place] [address] Dr. Ekta Funk ALT [Catalytic activity/Vol] 14 U/L Normal 14-59 [facility] Comment on above: Performed By: #### C MP #### [facility] [address] [place] [address] Dr. Ekta Funk Anion gap [Moles/Vol] 12.9 mmol/L Normal [facility] Comment on above: Performed By: #### C MP #### [facility] [address] [place] [address] Dr. Ekta Funk AST [Catalytic activity/Vol] 14 U/L Critically low 15-37 [facility] Comment on above: Performed By: #### C MP #### [facility] [address] [place] [address] Dr. Ekta Funk Bilirubin [Mass/Vol] 0.3 mg/dL Normal 0.2-1.0 [facility] Comment on above: Performed By: #### C MP #### [facility] [address] [address] [address] Ekta Funk Calcium [Mass/Vol] 8.3 mg/dL Critically low 8.5-10.1 [facility] Comment on above: Performed By: #### C MP #### [facility] [address] [address] [address] Ekta Funk Chloride [Moles/Vol] 109 mmol/L Critically high 98-107 [facility] Comment on above: Performed By: #### C MP #### [facility] [address] [place] [address] Dr. Ekta Funk CO2 [Moles/Vol] 19.3 mmol/L Critically low 21.0-32.0 [facility] Comment on above: Performed By: #### C MP #### [facility] [address] [place] [address] Dr. Ekta Funk Creatinine [Mass/Vol] 1.54 mg/dL Critically high 0.55-1.02 [facility] Comment on above: Performed By: #### C MP #### [facility] [address] [place] [address] Dr. Ekta Funk EGFR-AF AUSTRIAN 40 mL/min/1.73m2 Critically low >=60 [facility] Comment on above: Performed By: #### C MP #### [facility] [address] [place] [address] Dr. Ekta Funk EGFR-NON AF AUSTRIAN 33 mL/min/1.73m2 Critically low >=60 [facility] Comment on above: Performed By: #### C MP #### [facility] [address] [place] [address] Dr. Ekta Funk Globulin (S) [Mass/Vol] 3.7 g/dL Normal [facility] Comment on above: Performed By: #### C MP #### [facility] [address] [place] [address] Dr. Ekta Funk Glucose [Mass/Vol] 117 mg/dL Critically high 74-106 [facility] Comment on above: Performed By: #### C MP #### [facility] [address] [address] [address] Ekta Funk Potassium [Moles/Vol] 4.2 mmol/L Normal 3.5-5.1 [facility] Comment on above: Performed By: #### C MP #### [facility] [address] [place] [address] Dr. Ekta Funk Protein [Mass/Vol] 5.8 g/dL Critically low 6.4-8.2 [facility] Comment on above: Performed By: #### C MP #### [facility] [address] [place] [address] Dr. Ekta Funk Sodium [Moles/Vol] 137 mmol/L Normal 136-145 [facility] Comment on above: Performed By: #### C MP #### [facility] [address] [place] [address] Dr. Ekta Funk Urea nitrogen [Mass/Vol] 27.0 mg/dL Critically high 7.0-18.0 [facility] Comment on above: Performed By: #### C MP #### [facility] [address] [place] [address] Dr. Ekta Funk Urea nitrogen/Creatinine [Mass ratio] 17.5 mg/mg Normal [facility] Comment on above: Performed By: #### C MP #### [facility] [address] [place] [address] Dr. Ekta Funk AMMONIAon 11-24-2022 Ammonia (P) [Moles/Vol] 13 umol/L Normal 11-32 [facility] Comment on above: Performed By: #### C VDTB #### [facility] [address] [place] [address] Dr. Ekta Funk CBC AUTO DIFFon 11-24-2022 BASO # 0.0 103/ul Normal 0.0-0.1 [facility] Comment on above: Performed By: #### C MP #### [facility] [address] [address] [address] Ekta Funk Basophils/100 WBC (Bld) 0.4 % Normal 0.2-2.0 [facility] Comment on above: Performed By: #### C MP #### [facility] [address] [address] [address] Ekta Funk EO # 0.4 103/ul Normal 0.0-0.7 [facility] Comment on above: Performed By: #### C MP #### [facility] [address] [address] [address] Ekta Funk Eosinophils/100 WBC (Bld) 3.8 % Normal 0.9-7.0 [facility] Comment on above: Performed By: #### C MP #### [facility] [address] [address] [address] Ekta Funk Erythrocyte distribution width (RBC) [Ratio] 13.2 % Normal 11.0-15.0 [facility] Comment on above: Performed By: #### C MP #### [facility] [address] [address] [address] Ekta Funk Hematocrit (Bld) [Volume fraction] 34.0 % Critically low 36.0-48.0 [facility] Comment on above: Performed By: #### C MP #### [facility] [address] [address] [address] Ekta Funk Hemoglobin (Bld) [Mass/Vol] 11.5 g/dL Critically low 12.0-16.0 [facility] Comment on above: Performed By: #### C MP #### [facility] [address] [address] [address] Ekta Funk IG # 0.11 10e3/ul Critically high 0.00-0.03 [facility] Comment on above: Performed By: #### C MP #### [facility] [address] [address] [address] Ekta Funk IG % 1.2 % Critically high 0.0-0.5 [facility] Comment on above: Performed By: #### C MP #### [facility] [address] [address] [address] Ekta Funk LYMPH # 1.4 103/ul Normal 1.2-3.8 [facility] Comment on above: Performed By: #### C MP #### [facility] [address] [place] [address] Dr. Ekta Funk Lymphocytes/100 WBC (Bld) 14.9 % Critically low 20.5-60.0 [facility] Comment on above: Performed By: #### C MP #### [facility] [address] [place] [address] Dr. Ekta Funk MANUAL DIFF REQ NO Normal [facility] Comment on above: Performed By: #### C MP #### [facility] [address] [place] [address] Dr. Ekta Funk MCH (RBC) [Entitic mass] 32.5 pg Normal 26.7-34.0 [facility] Comment on above: Performed By: #### C MP #### [facility] [address] [place] [address] Dr. Ekta Funk MCHC (RBC) [Mass/Vol] 33.8 g/dL Normal 29.9-35.2 [facility] Comment on above: Performed By: #### C MP #### [facility] [address] [place] [address] Dr. Ekta Funk MCV (RBC) [Entitic vol] 96.0 fL Normal 81.0-99.0 [facility] Comment on above: Performed By: #### C MP #### [facility] [address] [place] [address] Dr. Ekta Funk MONO # 0.9 103/ul Critically high 0.3-0.8 [facility] Comment on above: Performed By: #### C MP #### [facility] [address] [place] [address] Dr. Ekta Funk Monocytes/100 WBC (Bld) 9.7 % Normal 1.7-12.0 [facility] Comment on above: Performed By: #### C MP #### [facility] [address] [address] [address] Ekta Funk NEUT # 6.4 103/ul Normal 1.4-6.5 [facility] Comment on above: Performed By: #### C MP #### [facility] [address] [address] [address] Ekta Funk Neutrophils/100 WBC (Bld) 70.0 % Normal 43.0-75.0 [facility] Comment on above: Performed By: #### C MP #### [facility] [address] [address] [address] Ekta Funk Platelet mean volume (Bld) [Entitic vol] 9.3 fL Critically low 9.5-13.5 [facility] Comment on above: Performed By: #### C MP #### [facility] [address] [place] [address] Dr. Ekta Funk PLT 308 103/ul Normal 150-450 [facility] Comment on above: Performed By: #### C MP #### [facility] [address] [address] [address] Ekta Funk RBC 3.54 106/ul Critically low 4.20-5.40 [facility] Comment on above: Performed By: #### C MP #### [facility] [address] [address] [address] Ekta Funk WBC 9.1 103/ul Normal 4.0-11.0 [facility] Comment on above: Performed By: #### C MP #### [facility] [address] [place] [address] Dr. Ekta Funk CPKon 11-24-2022 CK [Catalytic activity/Vol] 21 U/L Critically low 26-192 [facility] Comment on above: Performed By: #### B 12FOL, VITAD, IRON #### [facility] [address] [place], [place] [id number] Dr. Ekta Funk CT STROKE HEAD WOon [...] 11/24/2022 9:06 AM MDT Notifying Staff: Dr. Paarda Electronically authenticated by: VANESSA PARADA Date: 2022-11-24 11:09 Normal [facility] CTA HEAD WO W CONon 11-25-19 [...] VISHNU MARIE Date: 2022-11-24 12:41 Normal [facility] CULTURE URINEon 11-24-2022 CULTURE URINE Culture Observations : NO GROWTH. Normal [facility] Comment on above: Performed By: #### I NSULIN #### [facility] [address] [place] [address] Dr. Ekta Funk Covid-19 PCR (CVDTB)on 11-08 SARS-CoV-2 (COVID-19) RNA GANESH+probe Ql (Unsp spec) Not detected Normal NOT DETECTED [facility] Comment on above: Result Comment: When diagnostic [...] for this test is supported by the Operator [employer] Locating [employer] of [employer] and Human Service's declaration that [...] used). Performed By: #### C VDTBH #### [facility] [address] [place] [address] Dr. Ekta Funk ER URINE PROFILEon 3 Bilirubin Ql (U) Negative Normal NEGATIVE [facility] Comment on above: Performed By: #### C BC #### [facility] [address] [place] [address] Dr. Ekta Funk Clarity (U) CLEAR Normal CLEAR [facility] Comment on above: Performed By: #### C BC #### [facility] [address] [place] [address] Dr. Ekta Funk Color (U) LT. YELLOW Normal YELLOW [facility] Comment on above: Performed By: #### C BC #### [facility] [address] [place] [address] Dr. Ekta Funk ERUAHD A micrscopic examination will be performed if indicated. Normal [facility] Comment on above: Performed By: #### C BC #### [facility] [address] [place] [address] Dr. Ekta Funk Glucose Ql (U) Negative Normal NEGATIVE [facility] Comment on above: Performed By: #### C BC #### [facility] [address] [place] [address] Dr. Ekta Funk Hemoglobin Ql (U) Negative Normal NEGATIVE [facility] Comment on above: Performed By: #### C BC #### [facility] [address] [place] [address] Dr. Ekta Funk Ketones Ql (U) Negative Normal NEGATIVE [facility] Comment on above: Performed By: #### C BC #### [facility] [address] [place] [address] Dr. Ekta Funk LEUKOCYTES Negative Normal NEGATIVE [facility] Comment on above: Performed By: #### C BC #### [facility] [address] [place] [address] Dr. Ekta Funk Nitrite Ql (U) Negative Normal NEGATIVE [facility] Comment on above: Performed By: #### C BC #### [facility] [address] [place] [address] Dr. Ekta Funk pH (U) 5.5 [pH] Normal 5-9 [facility] Comment on above: Performed By: #### C BC #### [facility] [address] [place] [address] Dr. Ekta Funk SPEC GRAVITY 1.020 Normal 1.005-<=1.025 [facility] Comment on above: Performed By: #### C BC #### [facility] [address] [place] [address] Dr. Ekta Funk UA PROTEIN Negative Normal NEGATIVE/ TRACE [facility] Comment on above: Performed By: #### C BC #### [facility] [address] [place] [address] Dr. Ekta Funk UR MICRO IND NOT INDICATED Normal [facility] Comment on above: Performed By: #### C BC #### [facility] [address] [place] [address] Dr. Ekta Funk Urobilinogen Qn (U) 0.2 {Ivan'U}/dL Normal 0.2 - 1. 0 [facility] Comment on above: Performed By: #### C BC #### [facility] [address] [place] [address] Dr. Ekta Funk GLYCOHEMOGLOBIN A1Con 2022 ADA RECOMMENDATION SEE BELOW Normal [facility] Comment on above: Result Comment: ADA RECOMMENDED LIMIT 4.0 - 6.0 ADA THERAPEUTIC TARGET < 7.0 ACTION SUGGESTED > 7.0 Performed By: #### B 12FOL VITAD, IRON #### [facility] [address] [place] [address] Dr. Ekta Funk Glucose [Mass/Vol] 143 mg/dL Normal [facility] Comment on above: Performed By: #### B 12FOL, VITAD, IRON #### [facility] [address] [address] [address] Ekta Funk HbA1c (Bld) [Mass fraction] 6.6 % Critically high 4.5-6.2 [facility] Comment on above: Performed By: #### B 12FOL, VITAD, IRON #### [facility] [address] [address] [address] Ekta Funk LACTATE/LACTIC ACIDon 2022 Lactate [Moles/Vol] 1.6 mmol/L Normal 0.4-2.0 [facility] Comment on above: Performed By: #### C MP #### [facility] [address] [address] [address] Ekta Funk Lactate [Moles/Vol] 2.1 mmol/L Critically high 0.4-2.0 [facility] Comment on above: Performed By: #### B 12FOL, VITAD, IRON #### [facility] [address] [place] [address] Dr. Ekta Funk LIPASEon 11-24-2022 Lipase [Catalytic activity/Vol] 165.0 U/L Normal 73.0-393.0 [facility] Comment on above: Performed By: #### B 12FOL, VITAD, IRON #### [facility] [address] [place] [address] Dr. Ekta Funk LIPID PROFILEon 11-24-2022 CHOL-HDL RATIO NORM SEE BELOW Normal [facility] Comment on above: Result Comment: 3.3 - 4.4 LOW RISK 4.4 - 7.1 AVERAGE RISK 7.1 - 11.0 MODERATE RISK >11.0 HIGH RISK Performed By: #### B 12FOL, VITAD, IRON #### [facility] [address] [place] [address] Dr. Ekta Funk Cholesterol [Mass/Vol] 248 mg/dL Critically high <=200 [facility] Comment on above: Performed By: #### B 12FOL, VITAD, IRON #### [facility] [address] [place] [address] Dr. Ekta Funk Cholesterol in HDL [Mass/Vol] 58 mg/dL Normal 40-60 [facility] Comment on above: Performed By: #### B 12FOL, VITAD, IRON #### [facility] [address] [address] [address] Ekta Funk Cholesterol in LDL [Mass/Vol] 165.6 mg/dL Normal [facility] Comment on above: Performed By: #### B 12FOL, VITAD, IRON #### [facility] [address] [address] [address] Ekta Funk Cholesterol.total/Ch olesterol in HDL [Mass ratio] 4.3 {ratio} Normal [facility] Comment on above: Performed By: #### B 12FOL, VITAD, IRON #### [facility] [address] [address] [address] Ekta Funk HDL NORMAL > or = 60 mg/dl - LO W CARDIOVASCULAR RISK <40 mg/dl - HIGH CARDIOVASCULAR RISK Normal [facility] Comment on above: Performed By: #### B 12FOL, VITAD, IRON #### [facility] [address] [address] [address] Ekta Funk LDL CALC NORMAL SEE BELOW Normal [facility] Comment on above: Result Comment: <100 mg/dl OPTIMAL 100 - 129 mg/dl NEAR OR ABOVE OPTIMAL 130 - 159 mg/dl BORDERLINE HIGH 160 - 189 mg/dl HIGH >190 mg/dl VERY HIGH Performed By: #### B 12FOL, VITAD, IRON #### [facility] [address] [address] [address] Ekta Funk Triglyceride [Mass/Vol] 122 mg/dL Normal <=150 [facility] Comment on above: Performed By: #### B 12FOL, VITAD, IRON #### [facility] [address] [address] [address] Ekta Funk VLDL CALC 24.4 mg/dL Normal [facility] Comment on above: Performed By: #### B 12FOL, VITAD, IRON #### [facility] [address] [address] [address] Ekta Funk MRI BRAIN WO CONon [...] RAVEN ELAINE Date: 2022-11-24 19:35 Normal [facility] PROF 14(COMP METB)on 023 Albumin [Mass/Vol] 2.7 g/dL Critically low 3.4-5.0 Th e [facility] Comment on above: Performed By: #### B 12FOL, VITAD, IRON #### [facility] [address] [address] [address] Ekta Funk Albumin/Globulin [Mass ratio] 0.6 {ratio} Normal [facility] Comment on above: Performed By: #### B 12FOL, VITAD, IRON #### [facility] [address] [address] [address] Ekta Funk ALP [Catalytic activity/Vol] 85 U/L Normal 46-116 [facility] Comment on above: Performed By: #### B 12FOL, VITAD, IRON #### [facility] [address] [address] [address] Ekta Funk ALT [Catalytic activity/Vol] 18 U/L Normal 14-59 [facility] Comment on above: Performed By: #### B 12FOL, VITAD, IRON #### [facility] [address] [address] [address] Ekta Funk Anion gap [Moles/Vol] 18.9 mmol/L Normal [facility] Comment on above: Performed By: #### B 12FOL, VITAD, IRON #### [facility] [address] [place] [address] Dr. Ekta Funk AST [Catalytic activity/Vol] 16 U/L Normal 15-37 [facility] Comment on above: Performed By: #### B 12FOL, VITAD, IRON #### [facility] [address] [place] [address] Dr. Ekta Funk Bilirubin [Mass/Vol] 0.4 mg/dL Normal 0.2-1.0 [facility] Comment on above: Performed By: #### B 12FOL, VITAD, IRON #### [facility] [address] [place] [address] Dr. Ekta Funk Calcium [Mass/Vol] 9.5 mg/dL Normal 8.5-10.1 [facility] Comment on above: Performed By: #### B 12FOL, VITAD, IRON #### [facility] [address] [place] [address] Dr. Ekta Funk Chloride [Moles/Vol] 108 mmol/L Critically high 98-107 [facility] Comment on above: Performed By: #### B 12FOL, VITAD, IRON #### [facility] [address] [place] [address] Dr. Ekta Funk CO2 [Moles/Vol] 21.1 mmol/L Normal 21.0-32.0 [facility] Comment on above: Performed By: #### B 12FOL, VITAD, IRON #### [facility] [address] [place] [address] Dr. Ekta Funk Creatinine [Mass/Vol] 2.08 mg/dL Critically high 0.55-1.02 [facility] Comment on above: Performed By: #### B 12FOL, VITAD, IRON #### [facility] [address] [place] [address] Dr. Ekta Funk EGFR-AF AUSTRIAN 28 mL/min/1.73m2 Critically low >=60 [facility] Comment on above: Performed By: #### B 12FOL, VITAD, IRON #### [facility] [address] [place] [address] Dr. Ekta Funk EGFR-NON AF AUSTRIAN 23 mL/min/1.73m2 Critically low >=60 [facility] Comment on above: Performed By: #### B 12FOL, VITAD, IRON #### [facility] [address] [place] [address] Dr. Ekta Funk Globulin (S) [Mass/Vol] 4.6 g/dL Normal [facility] Comment on above: Performed By: #### B 12FOL, VITAD, IRON #### [facility] [address] [place] [address] Dr. Ekta Fukn Glucose [Mass/Vol] 119 mg/dL Critically high 74-106 [facility] Comment on above: Performed By: #### B 12FOL, VITAD, IRON #### [facility] [address] [place] [address] Dr. Ekta Funk Potassium [Moles/Vol] 5.0 mmol/L Normal 3.5-5.1 [facility] Comment on above: Performed By: #### B 12FOL, VITAD, IRON #### [facility] [address] [place] [address] Dr. Ekta Funk Protein [Mass/Vol] 7.3 g/dL Normal 6.4-8.2 [facility] Comment on above: Performed By: #### B 12FOL, VITAD, IRON #### [facility] [address] [place] [address] Dr. Ekta Funk Sodium [Moles/Vol] 143 mmol/L Normal 136-145 [facility] Comment on above: Performed By: #### B 12FOL, VITAD, IRON #### [facility] [address] [address] [address] Ekta Funk Urea nitrogen [Mass/Vol] 37.0 mg/dL Critically high 7.0-18.0 [facility] Comment on above: Performed By: #### B 12FOL VITAD, IRON #### [facility] [address] [place], [place] [address] Dr. Ekta Funk Urea nitrogen/Creatinine [Mass ratio] 17.8 mg/mg Normal [facility] Comment on above: Performed By: #### B 12FOL VITAD, IRON #### [facility] [address] [place], [place] [address] Dr. Ekta Funk TROPONIN, HIGH SENSITIVITYon 11-24-2022 HSTROP 14.1 pg/mL Normal 4.0-51.3 [facility] Comment on above: Result Comment: CUT- OFF POINTS HAVE BEEN ESTABLISHED BASED ON THE FOURTH UNIVERSAL DEFINITIONS OF MYOCARDIAL INFARCTION. THE UPPER REFERENCE LIMIT (URL) OF TROPONIN, DEFINED THE 99TH PERCENTILE OF cTnI DISTRIBUTION IN A REFERENCE POPULATION, HAS BEEN CONFIRMED THE DECISION THRESHOLD FOR [place] DIAGNOSIS. Performed By: #### B 12FOL VITAD, IRON #### [facility] [address] [address] [address] Ekta Funk TSHon 11-24-2022 TSH 1.184 uIU/mL Normal 0.358-3.740 [facility] Comment on above: Performed By: #### B ElviraFOLNENOAD, IRON #### [facility] [address] [id number] Ekta Funk XR CHEST 1 Von [...] NATALIIA TATE Date: 2022-11-24 11:00 Normal [facility] BNPon 11-13-2022 Natriuretic peptide B (Bld) [Mass/Vol] 565.0 pg/mL Normal <=900.0 [facility] Comment on above: Performed By: #### I NSULIN #### [facility] [address] [place] [address] Dr. Ekta Funk CBC AUTO DIFFon 11-13-2022 BASO # 0.1 103/ul Normal 0.0-0.1 [facility] Comment on above: Performed By: #### C BC #### [facility] [address] [place] [address] Dr. Ekta Funk Basophils/100 WBC (Bld) 0.6 % Normal 0.2-2.0 [facility] Comment on above: Performed By: #### C BC #### [facility] [address] [place] [address] Dr. Ekta Funk EO # 0.4 103/ul Normal 0.0-0.7 [facility] Comment on above: Performed By: #### C BC #### [facility] [address] [place] [address] Dr. Ekta Funk Eosinophils/100 WBC (Bld) 3.7 % Normal 0.9-7.0 [facility] Comment on above: Performed By: #### C BC #### [facility] [address] [place] [address] Dr. Ekta Funk Erythrocyte distribution width (RBC) [Ratio] 13.2 % Normal 11.0-15.0 [facility] Comment on above: Performed By: #### C BC #### [facility] [address] [place] [address] Dr. Ekta Funk Hematocrit (Bld) [Volume fraction] 36.7 % Normal 36.0-48.0 [facility] Comment on above: Performed By: #### C BC #### [facility] [address] [place] [address] Dr. Ekta Funk Hemoglobin (Bld) [Mass/Vol] 12.4 g/dL Normal 12.0-16.0 [facility] Comment on above: Performed By: #### C BC #### [facility] [address] [place] [address] Dr. Ekta Funk IG # 0.10 10e3/ul Critically high 0.00-0.03 [facility] Comment on above: Performed By: #### C BC #### [facility] [address] [place] [address] Dr. Ekta Funk IG % 1.0 % Critically high 0.0-0.5 [facility] Comment on above: Performed By: #### C BC #### [facility] [address] [place] [address] Dr. Ekta Funk LYMPH # 1.5 103/ul Normal 1.2-3.8 [facility] Comment on above: Performed By: #### C BC #### [facility] [address] [place] [address] Dr. Ekta Funk Lymphocytes/100 WBC (Bld) 14.9 % Critically low 20.5-60.0 [facility] Comment on above: Performed By: #### C BC #### [facility] [address] [place] [address] Dr. Ekta Funk MANUAL DIFF REQ NO Normal [facility] Comment on above: Performed By: #### C BC #### [facility] [address] [place] [address] Dr. Ekta Funk MCH (RBC) [Entitic mass] 32.8 pg Normal 26.7-34.0 [facility] Comment on above: Performed By: #### C BC #### [facility] [address] [place] [address] Dr. Ekta Funk MCHC (RBC) [Mass/Vol] 33.8 g/dL Normal 29.9-35.2 [facility] Comment on above: Performed By: #### C BC #### [facility] [address] [place] [address] Dr. Ekta Funk MCV (RBC) [Entitic vol] 97.1 fL Normal 81.0-99.0 [facility] Comment on above: Performed By: #### C BC #### [facility] [address] [address] [address] Ekta Funk MONO # 0.8 103/ul Normal 0.3-0.8 [facility] Comment on above: Performed By: #### C BC #### [facility] [address] [address] [address] Ekta Funk Monocytes/100 WBC (Bld) 7.7 % Normal 1.7-12.0 [facility] Comment on above: Performed By: #### C BC #### [facility] [address] [address] [address] Ekta Funk NEUT # 7.3 103/ul Critically high 1.4-6.5 [facility] Comment on above: Performed By: #### C BC #### [facility] [address] [place] [address] Dr. Ekta Funk Neutrophils/100 WBC (Bld) 72.1 % Normal 43.0-75.0 [facility] Comment on above: Performed By: #### C BC #### [facility] [address] [address] [address] Ekta Funk Platelet mean volume (Bld) [Entitic vol] 9.4 fL Critically low 9.5-13.5 [facility] Comment on above: Performed By: #### C BC #### [facility] [address] [place] [address] Dr. Ekta Funk PLT 251 103/ul Normal 150-450 [facility] Comment on above: Performed By: #### C BC #### [facility] [address] [place] [address] Dr. Ekta Funk RBC 3.78 106/ul Critically low 4.20-5.40 [facility] Comment on above: Performed By: #### C BC #### [facility] [address] [address] [address] Ekta Funk WBC 10.1 103/ul Normal 4.0-11.0 [facility] Comment on above: Performed By: #### C BC #### [facility] [address] [address] [address] Ekta Funk FREE THYROXINE INDEX T7on FTI 2.73 Normal 1.30-4.50 [facility] Comment on above: Performed By: #### I NSULIN #### [facility] [address] [address] [address] Ekta Funk T3U 35.0 % Normal 30.0-39.0 [facility] Comment on above: Performed By: #### I NSULIN #### [facility] [address] [address] [address] Ekta Funk T4 [Mass/Vol] 7.80 ug/dL Normal 4.80-13.90 [facility] Comment on above: Performed By: #### I NSULIN #### [facility] [address] [place] [address] Dr. Ekta Funk GLYCOHEMOGLOBIN A1Con 2022 ADA RECOMMENDATION SEE BELOW Normal [facility] Comment on above: Result Comment: ADA RECOMMENDED LIMIT 4.0 - 6.0 ADA THERAPEUTIC TARGET < 7.0 ACTION SUGGESTED > 7.0 Performed By: #### B 12FOL, VITAD, IRON #### [facility] [address] [address] [address] Ekta Funk Glucose [Mass/Vol] 134 mg/dL Normal [facility] Comment on above: Performed By: #### B 12FOL, VITAD, IRON #### [facility] [address] [address] [address] Ekta Funk HbA1c (Bld) [Mass fraction] 6.3 % Critically high 4.5-6.2 [facility] Comment on above: Performed By: #### B 12FOL, VITAD, IRON #### [facility] [address] [place] [address] Dr. Ekta Funk IRONon 11-13-2022 Iron [Mass/Vol] 55.0 ug/dL Normal 50.0-170.0 [facility] Comment on above: Performed By: #### B 12FOL, VITAD, IRON #### [facility] [address] [address] [address] Ekta Funk LIPID PROFILEon 11-13-2022 CHOL-HDL RATIO NORM SEE BELOW Normal [facility] Comment on above: Result Comment: 3.3 - 4.4 LOW RISK 4.4 - 7.1 AVERAGE RISK 7.1 - 11.0 MODERATE RISK >11.0 HIGH RISK Performed By: #### I NSULIN #### [facility] [address] [address] [address] Ekta Funk Cholesterol [Mass/Vol] 294 mg/dL Critically high <=200 [facility] Comment on above: Performed By: #### I NSULIN #### [facility] [address] [address] [address] Ekta Funk Cholesterol in HDL [Mass/Vol] 64 mg/dL Critically high 40-60 [facility] Comment on above: Performed By: #### I NSULIN #### [facility] [address] [address] [address] Ekta Funk Cholesterol in LDL [Mass/Vol] 197.2 mg/dL Normal [facility] Comment on above: Performed By: #### I NSULIN #### [facility] [address] [address] [address] Ekta Funk Cholesterol.total/Ch olesterol in HDL [Mass ratio] 4.6 {ratio} Normal [facility] Comment on above: Performed By: #### I NSULIN #### [facility] [address] [address] [address] Ekta Funk HDL NORMAL > or = 60 mg/dl - LO W CARDIOVASCULAR RISK <40 mg/dl - HIGH CARDIOVASCULAR RISK Normal [facility] Comment on above: Performed By: #### I NSULIN #### [facility] [address] [address] [address] Ekta Funk LDL CALC NORMAL SEE BELOW Normal [facility] Comment on above: Result Comment: <100 mg/dl OPTIMAL 100 - 129 mg/dl NEAR OR ABOVE OPTIMAL 130 - 159 mg/dl BORDERLINE HIGH 160 - 189 mg/dl HIGH >190 mg/dl VERY HIGH Performed By: #### I NSULIN #### [facility] [address] [address] [address] Ekta Funk Triglyceride [Mass/Vol] 164 mg/dL Critically high <=150 [facility] Comment on above: Performed By: #### I NSULIN #### [facility] [address] [address] [address] Ekta Funk VLDL CALC 32.8 mg/dL Normal [facility] Comment on above: Performed By: #### I NSULIN #### [facility] [address] [place] [address] Dr. Ekta Funk PROF 14(COMP METB)on 023 Albumin [Mass/Vol] 3.0 g/dL Critically low 3.4-5.0 [facility] Comment on above: Performed By: #### I NSULIN #### [facility] [address] [place] [address] Dr. Ekta Funk Albumin/Globulin [Mass ratio] 0.6 {ratio} Normal [facility] Comment on above: Performed By: #### I NSULIN #### [facility] [address] [place] [address] Dr. Ekta Funk ALP [Catalytic activity/Vol] 92 U/L Normal 46-116 [facility] Comment on above: Performed By: #### I NSULIN #### [facility] [address] [place] [address] Dr. Ekta Funk ALT [Catalytic activity/Vol] 26 U/L Normal 14-59 [facility] Comment on above: Performed By: #### I NSULIN #### [facility] [address] [place] [address] Dr. Ekta Funk Anion gap [Moles/Vol] 16.2 mmol/L Normal [facility] Comment on above: Performed By: #### I NSULIN #### [facility] [address] [place] [address] Dr. Ekta Funk AST [Catalytic activity/Vol] 16 U/L Normal 15-37 [facility] Comment on above: Performed By: #### I NSULIN #### [facility] [address] [address] [address] Ekta Funk Bilirubin [Mass/Vol] 0.5 mg/dL Normal 0.2-1.0 [facility] Comment on above: Performed By: #### I NSULIN #### [facility] [address] [place] [address] Dr. Ekta Funk Calcium [Mass/Vol] 9.7 mg/dL Normal 8.5-10.1 [facility] Comment on above: Performed By: #### I NSULIN #### [facility] [address] [place] [address] Dr. Ekta Funk Chloride [Moles/Vol] 105 mmol/L Normal 98-107 [facility] Comment on above: Performed By: #### I NSULIN #### [facility] [address] [place] [address] Dr. Ekta Funk CO2 [Moles/Vol] 24.9 mmol/L Normal 21.0-32.0 [facility] Comment on above: Performed By: #### I NSULIN #### [facility] [address] [place] [address] Dr. Ekta Funk Creatinine [Mass/Vol] 2.18 mg/dL Critically high 0.55-1.02 [facility] Comment on above: Performed By: #### I NSULIN #### [facility] [address] [place] [address] Dr. Ekta Funk EGFR-AF AUSTRIAN 27 mL/min/1.73m2 Critically low >=60 [facility] Comment on above: Performed By: #### I NSULIN #### [facility] [address] [place] [address] Dr. Ekta Funk EGFR-NON AF AUSTRIAN 22 mL/min/1.73m2 Critically low >=60 [facility] Comment on above: Performed By: #### I NSULIN #### [facility] [address] [place] [address] Dr. Ekta Funk Globulin (S) [Mass/Vol] 4.7 g/dL Normal [facility] Comment on above: Performed By: #### I NSULIN #### [facility] [address] [address] [address] Ekta Funk Glucose [Mass/Vol] 114 mg/dL Critically high 74-106 [facility] Comment on above: Performed By: #### I NSULIN #### [facility] [address] [address] [address] Ekta Funk Potassium [Moles/Vol] 5.1 mmol/L Normal 3.5-5.1 [facility] Comment on above: Performed By: #### I NSULIN #### [facility] [address] [address] [address] Ekta Funk Protein [Mass/Vol] 7.7 g/dL Normal 6.4-8.2 [facility] Comment on above: Performed By: #### I NSULIN #### [facility] [address] [address] [address] Ekta Funk Sodium [Moles/Vol] 141 mmol/L Normal 136-145 [facility] Comment on above: Performed By: #### I NSULIN #### [facility] [address] [address] [address] Ekta Funk Urea nitrogen [Mass/Vol] 51.0 mg/dL Critically high 7.0-18.0 [facility] Comment on above: Performed By: #### I NSULIN #### [facility] [address] [address] [address] Ekta Funk Urea nitrogen/Creatinine [Mass ratio] 23.4 mg/mg Normal [facility] Comment on above: Performed By: #### I NSULIN #### [facility] [address] [address] [address] Ekta Funk TSHon 11-13-2022 TSH 0.935 uIU/mL Normal 0.358-3.740 [facility] Comment on above: Performed By: #### I NSULIN #### [facility] [address] [address] [address] Ekta Funk XR CHEST 2 Von [...] GODWIN BECK Date: 2022-11-13 15:40 Normal [facility] PROF 14(COMP METB)on 023 Albumin [Mass/Vol] 3.0 g/dL Critically low 3.4-5.0 Th e [facility] Comment on above: Performed By: #### B 12FOL, VITAD, IRON #### [facility] [address] [place] [address] Dr. Ekta Funk Albumin/Globulin [Mass ratio] 0.7 {ratio} Normal [facility] Comment on above: Performed By: #### B 12FOL, VITAD, IRON #### [facility] [address] [place] [address] Dr. Ekta Funk ALP [Catalytic activity/Vol] 89 U/L Normal 46-116 [facility] Comment on above: Performed By: #### B 12FOL, VITAD, IRON #### [facility] [address] [place] [address] Dr. Ekta Funk ALT [Catalytic activity/Vol] 29 U/L Normal 14-59 [facility] Comment on above: Performed By: #### B 12FOL, VITAD, IRON #### [facility] [address] [place] [address] Dr. Ekta Funk Anion gap [Moles/Vol] 15.2 mmol/L Normal [facility] Comment on above: Performed By: #### B 12FOL, VITAD, IRON #### [facility] [address] [place] [address] Dr. Ekta Funk AST [Catalytic activity/Vol] 14 U/L Critically low 15-37 [facility] Comment on above: Performed By: #### B 12FOL, VITAD, IRON #### [facility] [address] [address] [address] Ekta Funk Bilirubin [Mass/Vol] 0.4 mg/dL Normal 0.2-1.0 [facility] Comment on above: Performed By: #### B 12FOL, VITAD, IRON #### [facility] [address] [place] [address] Dr. Ekta Funk Calcium [Mass/Vol] 9.1 mg/dL Normal 8.5-10.1 [facility] Comment on above: Performed By: #### B 12FOL, VITAD, IRON #### [facility] [address] [place] [address] Dr. Ekta Funk Chloride [Moles/Vol] 106 mmol/L Normal 98-107 [facility] Comment on above: Performed By: #### B 12FOL, VITAD, IRON #### [facility] [address] [place] [address] Dr. Ekta Funk CO2 [Moles/Vol] 24.2 mmol/L Normal 21.0-32.0 [facility] Comment on above: Performed By: #### B 12FOL, VITAD, IRON #### [facility] [address] [place] [address] Dr. Ekta Funk Creatinine [Mass/Vol] 1.89 mg/dL Critically high 0.55-1.02 [facility] Comment on above: Performed By: #### B 12FOL, VITAD, IRON #### [facility] [address] [address] [address] Ekta Funk EGFR-AF AUSTRIAN 32 mL/min/1.73m2 Critically low >=60 [facility] Comment on above: Performed By: #### B 12FOL, VITAD, IRON #### [facility] [address] [place] [address] Dr. Ekta Funk EGFR-NON AF AUSTRIAN 26 mL/min/1.73m2 Critically low >=60 [facility] Comment on above: Performed By: #### B 12FOL, VITAD, IRON #### [facility] [address] [place] [address] Dr. Ekta Funk Globulin (S) [Mass/Vol] 4.1 g/dL Normal [facility] Comment on above: Performed By: #### B 12FOL, VITAD, IRON #### [facility] [address] [place] [address] Dr. Ekta Funk Glucose [Mass/Vol] 108 mg/dL Critically high 74-106 [facility] Comment on above: Performed By: #### B 12FOL, VITAD, IRON #### [facility] [address] [place] [address] Dr. Ekta Funk Potassium [Moles/Vol] 4.4 mmol/L Normal 3.5-5.1 [facility] Comment on above: Performed By: #### B 12FOL, VITAD, IRON #### [facility] [address] [place] [address] Dr. Ekta Funk Protein [Mass/Vol] 7.1 g/dL Normal 6.4-8.2 [facility] Comment on above: Performed By: #### B 12FOL, VITAD, IRON #### [facility] [address] [place] [address] Dr. Ekta Funk Sodium [Moles/Vol] 141 mmol/L Normal 136-145 [facility] Comment on above: Performed By: #### B 12FOL, VITAD, IRON #### [facility] [address] [place] [address] Dr. Ekta Funk Urea nitrogen [Mass/Vol] 40.0 mg/dL Critically high 7.0-18.0 [facility] Comment on above: Performed By: #### B 12FOL, VITAD, IRON #### [facility] [address] [address] [address] Ekta Funk Urea nitrogen/Creatinine [Mass ratio] 21.2 mg/mg Normal [facility] Comment on above: Performed By: #### B 12FOL, VITAD, IRON #### [facility] [address] [place] [address] Dr. Ekta Funk BNPon 10-23-2022 Natriuretic peptide B (Bld) [Mass/Vol] 507.0 pg/mL Normal <=900.0 [facility] Comment on above: Performed By: #### B 12FOL, VITAD, IRON #### [facility] [address] [place] [address] Dr. Ekta Funk CBC AUTO DIFFon 10-23-2022 BASO # 0.0 103/ul Normal 0.0-0.1 [facility] Comment on above: Performed By: #### C BC #### [facility] [address] [place] [address] Dr. Ekta Funk Basophils/100 WBC (Bld) 0.2 % Normal 0.2-2.0 [facility] Comment on above: Performed By: #### C BC #### [facility] [address] [place] [address] Dr. Ekta Funk EO # 0.1 103/ul Normal 0.0-0.7 [facility] Comment on above: Performed By: #### C BC #### [facility] [address] [place] [address] Dr. Ekta Funk Eosinophils/100 WBC (Bld) 1.1 % Normal 0.9-7.0 [facility] Comment on above: Performed By: #### C BC #### [facility] [address] [place] [address] Dr. Ekta Funk Erythrocyte distribution width (RBC) [Ratio] 12.8 % Normal 11.0-15.0 [facility] Comment on above: Performed By: #### C BC #### [facility] [address] [place] [address] Dr. Ekta Funk Hematocrit (Bld) [Volume fraction] 37.1 % Normal 36.0-48.0 [facility] Comment on above: Performed By: #### C BC #### [facility] [address] [place] [address] Dr. Ekta Funk Hemoglobin (Bld) [Mass/Vol] 13.0 g/dL Normal 12.0-16.0 [facility] Comment on above: Performed By: #### C BC #### [facility] [address] [place] [address] Dr. Ekta Funk IG # 0.11 10e3/ul Critically high 0.00-0.03 [facility] Comment on above: Performed By: #### C BC #### [facility] [address] [place] [address] Dr. Ekta Funk IG % 1.1 % Critically high 0.0-0.5 [facility] Comment on above: Performed By: #### C BC #### [facility] [address] [place] [address] Dr. Ekta Funk LYMPH # 1.6 103/ul Normal 1.2-3.8 [facility] Comment on above: Performed By: #### C BC #### [facility] [address] [place] [address] Dr. Ekta Funk Lymphocytes/100 WBC (Bld) 15.6 % Critically low 20.5-60.0 [facility] Comment on above: Performed By: #### C BC #### [facility] [address] [place] [address] Dr. Ekta Funk MANUAL DIFF REQ NO Normal [facility] Comment on above: Performed By: #### C BC #### [facility] [address] [place] [address] Dr. Ekta Funk MCH (RBC) [Entitic mass] 32.8 pg Normal 26.7-34.0 [facility] Comment on above: Performed By: #### C BC #### [facility] [address] [place] [address] Dr. Ekta Funk MCHC (RBC) [Mass/Vol] 35.0 g/dL Normal 29.9-35.2 [facility] Comment on above: Performed By: #### C BC #### [facility] [address] [place] [address] Dr. Ekta Funk MCV (RBC) [Entitic vol] 93.7 fL Normal 81.0-99.0 [facility] Comment on above: Performed By: #### C BC #### [facility] [address] [place] [address] Dr. Ekta Funk MONO # 0.9 103/ul Critically high 0.3-0.8 [facility] Comment on above: Performed By: #### C BC #### [facility] [address] [place] [address] Dr. Ekta Funk Monocytes/100 WBC (Bld) 8.3 % Normal 1.7-12.0 [facility] Comment on above: Performed By: #### C BC #### [facility] [address] [place] [address] Dr. Ekta Funk NEUT # 7.5 103/ul Critically high 1.4-6.5 [facility] Comment on above: Performed By: #### C BC #### [facility] [address] [place] [address] Dr. Ekta Funk Neutrophils/100 WBC (Bld) 73.7 % Normal 43.0-75.0 [facility] Comment on above: Performed By: #### C BC #### [facility] [address] [place] [address] Dr. Ekta Funk Platelet mean volume (Bld) [Entitic vol] 10.3 fL Normal 9.5-13.5 [facility] Comment on above: Performed By: #### C BC #### [facility] [address] [place] [address] Dr. Ekta Funk PLT 135 103/ul Critically low 150-450 [facility] Comment on above: Performed By: #### C BC #### [facility] [address] [place] [address] Dr. Ekta Funk RBC 3.96 106/ul Critically low 4.20-5.40 [facility] Comment on above: Performed By: #### C BC #### [facility] [address] [place] [address] Dr. Ekta Funk WBC 10.2 103/ul Normal 4.0-11.0 [facility] Comment on above: Performed By: #### C BC #### [facility] [address] [place] [address] Dr. Ekta Funk PROF 14(COMP METB)on 023 Albumin [Mass/Vol] 2.7 g/dL Critically low 3.4-5.0 [facility] Comment on above: Performed By: #### B 12FOL, VITAD, IRON #### [facility] [address] [place] [address] Dr. Ekta Funk Albumin/Globulin [Mass ratio] 0.8 {ratio} Normal [facility] Comment on above: Performed By: #### B 12FOL, VITAD, IRON #### [facility] [address] [place] [address] Dr. Ekta Funk ALP [Catalytic activity/Vol] 74 U/L Normal 46-116 [facility] Comment on above: Performed By: #### B 12FOL, VITAD, IRON #### [facility] [address] [place] [address] Dr. Ekta Funk ALT [Catalytic activity/Vol] 26 U/L Normal 14-59 [facility] Comment on above: Performed By: #### B 12FOL, VITAD, IRON #### [facility] [address] [place] [address] Dr. Ekta Funk Anion gap [Moles/Vol] 16.5 mmol/L Normal [facility] Comment on above: Performed By: #### B 12FOL, VITAD, IRON #### [facility] [address] [place] [address] Dr. Ekta Funk AST [Catalytic activity/Vol] 15 U/L Normal 15-37 [facility] Comment on above: Performed By: #### B 12FOL, VITAD, IRON #### [facility] [address] [place] [address] Dr. Ekta Funk Bilirubin [Mass/Vol] 0.4 mg/dL Normal 0.2-1.0 [facility] Comment on above: Performed By: #### B 12FOL, VITAD, IRON #### [facility] [address] [place] [address] Dr. Ekta Funk Calcium [Mass/Vol] 8.1 mg/dL Critically low 8.5-10.1 [facility] Comment on above: Performed By: #### B 12FOL, VITAD, IRON #### [facility] [address] [address] [address] Ekta Funk Chloride [Moles/Vol] 96 mmol/L Critically low 98-107 [facility] Comment on above: Performed By: #### B 12FOL, VITAD, IRON #### [facility] [address] [place] [address] Dr. Ekta Funk CO2 [Moles/Vol] 26.1 mmol/L Normal 21.0-32.0 [facility] Comment on above: Performed By: #### B 12FOL, VITAD, IRON #### [facility] [address] [place] [address] Dr. Ekta Funk Creatinine [Mass/Vol] 3.28 mg/dL Critically high 0.55-1.02 [facility] Comment on above: Performed By: #### B 12FOL, VITAD, IRON #### [facility] [address] [place] [address] Dr. Ekta Funk EGFR-AF AUSTRIAN 17 mL/min/1.73m2 Critically low >=60 [facility] Comment on above: Performed By: #### B 12FOL, VITAD, IRON #### [facility] [address] [place] [address] Dr. Ekta Funk EGFR-NON AF AUSTRIAN 14 mL/min/1.73m2 Critically low >=60 [facility] Comment on above: Performed By: #### B 12FOL, VITAD, IRON #### [facility] [address] [place] [address] Dr. Ekta Funk Globulin (S) [Mass/Vol] 3.6 g/dL Normal [facility] Comment on above: Performed By: #### B 12FOL, VITAD, IRON #### [facility] [address] [place] [address] Dr. Ekta Funk Glucose [Mass/Vol] 132 mg/dL Critically high 74-106 [facility] Comment on above: Performed By: #### B 12FOL, VITAD, IRON #### [facility] [address] [place] [address] Dr. Ekta Funk Potassium [Moles/Vol] 4.6 mmol/L Normal 3.5-5.1 [facility] Comment on above: Performed By: #### B 12FOL, VITAD, IRON #### [facility] [address] [place] [address] Dr. Ekta Funk Protein [Mass/Vol] 6.3 g/dL Critically low 6.4-8.2 [facility] Comment on above: Performed By: #### B 12FOL, VITAD, IRON #### [facility] [address] [place] [address] Dr. Ekta Funk Sodium [Moles/Vol] 134 mmol/L Critically low 136-[address] [facility] Comment on above: Performed By: #### B 12FOL, VITAD, IRON #### [facility] [address] [place] [address] Dr. Ekta Funk Urea nitrogen [Mass/Vol] 74.0 mg/dL Critically high 7.0-18.0 [facility] Comment on above: Performed By: #### B 12FOL, VITAD, IRON #### [facility] [address] [place] [address] Dr. Ekta Funk Urea nitrogen/Creatinine [Mass ratio] 22.6 mg/mg Normal [facility] Comment on above: Performed By: #### B 12FOL, VITAD, IRON #### [facility] [address] [place] [address] Dr. Ekta Funk BNPon 10-22-2022 Natriuretic peptide B (Bld) [Mass/Vol] 1411.0 pg/mL Critically high <=900.0 [facility] Comment on above: Performed By: #### B 12FOL, VITAD, IRON #### [facility] [address] [place] [address] Dr. Ekta Funk CBC AUTO DIFFon 10-22-2022 BASO # 0.0 103/ul Normal 0.0-0.1 [facility] Comment on above: Performed By: #### B 12FOL, VITAD, IRON #### [facility] [address] [place] [address] Dr. Ekta Funk Basophils/100 WBC (Bld) 0.3 % Normal 0.2-2.0 [facility] Comment on above: Performed By: #### B 12FOL, VITAD, IRON #### [facility] [address] [place] [address] Dr. Ekta Funk EO # 0.1 103/ul Normal 0.0-0.7 [facility] Comment on above: Performed By: #### B 12FOL, VITAD, IRON #### [facility] [address] [place] [address] Dr. Ekta Funk Eosinophils/100 WBC (Bld) 0.6 % Critically low 0.9-7.0 [facility] Comment on above: Performed By: #### B 12FOL, VITAD, IRON #### [facility] [address] [place] [address] Dr. Ekta Funk Erythrocyte distribution width (RBC) [Ratio] 12.9 % Normal 11.0-15.0 [facility] Comment on above: Performed By: #### B 12FOL, VITAD, IRON #### [facility] [address] [place] [address] Dr. Ekta Funk Hematocrit (Bld) [Volume fraction] 40.8 % Normal 36.0-48.0 [facility] Comment on above: Performed By: #### B 12FOL, VITAD, IRON #### [facility] [address] [place] [address] Dr. Ekta Funk Hemoglobin (Bld) [Mass/Vol] 14.0 g/dL Normal 12.0-16.0 [facility] Comment on above: Performed By: #### B 12FOL, VITAD, IRON #### [facility] [address] [place] [address] Dr. Ekta Funk IG # 0.09 10e3/ul Critically high 0.00-0.03 [facility] Comment on above: Performed By: #### B 12FOL, VITAD, IRON #### [facility] [address] [place] [address] Dr. Ekta Funk IG % 0.8 % Critically high 0.0-0.5 [facility] Comment on above: Performed By: #### B 12FOL, VITAD, IRON #### [facility] [address] [place] [address] Dr. Ekta Funk LYMPH # 1.8 103/ul Normal 1.2-3.8 [facility] Comment on above: Performed By: #### B 12FOL, VITAD, IRON #### [facility] [address] [place] [address] Dr. Ekta Funk Lymphocytes/100 WBC (Bld) 16.2 % Critically low 20.5-60.0 [facility] Comment on above: Performed By: #### B 12FOL, VITAD, IRON #### [facility] [address] [place] [address] Dr. Ekta Funk MANUAL DIFF REQ NO Normal [facility] Comment on above: Performed By: #### B 12FOL, VITAD, IRON #### [facility] [address] [place] [address] Dr. Ekta Funk MCH (RBC) [Entitic mass] 32.3 pg Normal 26.7-34.0 [facility] Comment on above: Performed By: #### B 12FOL, VITAD, IRON #### [facility] [address] [place] [address] Dr. Ekta Funk MCHC (RBC) [Mass/Vol] 34.3 g/dL Normal 29.9-35.2 [facility] Comment on above: Performed By: #### B 12FOL, VITAD, IRON #### [facility] [address] [place] [address] Dr. Ekta Funk MCV (RBC) [Entitic vol] 94.2 fL Normal 81.0-99.0 [facility] Comment on above: Performed By: #### B 12FOL, VITAD, IRON #### [facility] [address] [place] [address] Dr. Ekta Funk MONO # 0.8 103/ul Normal 0.3-0.8 [facility] Comment on above: Performed By: #### B 12FOL, VITAD, IRON #### [facility] [address] [place] [address] Dr. Ekta Funk Monocytes/100 WBC (Bld) 7.3 % Normal 1.7-12.0 [facility] Comment on above: Performed By: #### B 12FOL, VITAD, IRON #### [facility] [address] [place] [address] Dr. Ekta Funk NEUT # 8.1 103/ul Critically high 1.4-6.5 [facility] Comment on above: Performed By: #### B 12FOL, VITAD, IRON #### [facility] [address] [place] [address] Dr. Ekta Funk Neutrophils/100 WBC (Bld) 74.8 % Normal 43.0-75.0 [facility] Comment on above: Performed By: #### B 12FOL, VITAD, IRON #### [facility] [address] [place] [address] Dr. Ekta Funk Platelet mean volume (Bld) [Entitic vol] 9.8 fL Normal 9.5-13.5 [facility] Comment on above: Performed By: #### B 12FOL, VITAD, IRON #### [facility] [address] [place] [address] Dr. Ekta Funk PLT 226 103/ul Normal 150-450 [facility] Comment on above: Performed By: #### B 12FOL, VITAD, IRON #### [facility] [address] [place] [address] Dr. Ekta Funk RBC 4.33 106/ul Normal 4.20-5.40 [facility] Comment on above: Performed By: #### B 12FOL, VITAD, IRON #### [facility] [address] [place] [address] Dr. Ekta uFnk WBC 10.9 103/ul Normal 4.0-11.0 [facility] Comment on above: Performed By: #### B 12FOL, VITAD, IRON #### [facility] [address] [place] [address] Dr. Ekta Funk PROF 14(COMP METB)on 023 Albumin [Mass/Vol] 3.1 g/dL Critically low 3.4-5.0 [facility] Comment on above: Performed By: #### B 12FOL, VITAD, IRON #### [facility] [address] [place] [address] Dr. Ekta Funk Albumin/Globulin [Mass ratio] 0.7 {ratio} Normal [facility] Comment on above: Performed By: #### B 12FOL, VITAD, IRON #### [facility] [address] [place] [address] Dr. Ekta Funk ALP [Catalytic activity/Vol] 81 U/L Normal 46-116 [facility] Comment on above: Performed By: #### B 12FOL, VITAD, IRON #### [facility] [address] [place] [address] Dr. Ekta Funk ALT [Catalytic activity/Vol] 30 U/L Normal 14-59 [facility] Comment on above: Performed By: #### B 12FOL, VITAD, IRON #### [facility] [address] [place] [address] Dr. Ekta Funk Anion gap [Moles/Vol] 17.3 mmol/L Normal [facility] Comment on above: Performed By: #### B 12FOL, VITAD, IRON #### [facility] [address] [place] [address] Dr. Ekta Funk AST [Catalytic activity/Vol] 11 U/L Critically low 15-37 [facility] Comment on above: Performed By: #### B 12FOL, VITAD, IRON #### [facility] [address] [place] [address] Dr. Ekta Funk Bilirubin [Mass/Vol] 0.5 mg/dL Normal 0.2-1.0 [facility] Comment on above: Performed By: #### B 12FOL, VITAD, IRON #### [facility] [address] [address] [address] Ekta Funk Calcium [Mass/Vol] 8.6 mg/dL Normal 8.5-10.1 [facility] Comment on above: Performed By: #### B 12FOL, VITAD, IRON #### [facility] [address] [place] [address] Dr. Ekta Funk Chloride [Moles/Vol] 95 mmol/L Critically low 98-107 [facility] Comment on above: Performed By: #### B 12FOL, VITAD, IRON #### [facility] [address] [address] [address] Ekta Funk CO2 [Moles/Vol] 27.3 mmol/L Normal 21.0-32.0 [facility] Comment on above: Performed By: #### B 12FOL, VITAD, IRON #### [facility] [address] [place] [address] Dr. Ekta Funk Creatinine [Mass/Vol] 3.17 mg/dL Critically high 0.55-1.02 [facility] Comment on above: Performed By: #### B 12FOL, VITAD, IRON #### [facility] [address] [address] [address] Ekta Funk EGFR-AF AUSTRIAN 17 mL/min/1.73m2 Critically low >=60 [facility] Comment on above: Performed By: #### B 12FOL, VITAD, IRON #### [facility] [address] [place] [address] Dr. Ekta Funk EGFR-NON AF AUSTRIAN 14 mL/min/1.73m2 Critically low >=60 [facility] Comment on above: Performed By: #### B 12FOL, VITAD, IRON #### [facility] [address] [place] [address] Dr. Ekta Funk Globulin (S) [Mass/Vol] 4.6 g/dL Normal [facility] Comment on above: Performed By: #### B 12FOL, VITAD, IRON #### [facility] [address] [place] [address] Dr. Ekta Funk Glucose [Mass/Vol] 139 mg/dL Critically high 74-106 [facility] Comment on above: Performed By: #### B 12FOL, VITAD, IRON #### [facility] [address] [place] [address] Dr. Ekta Funk Potassium [Moles/Vol] 4.6 mmol/L Normal 3.5-5.1 [facility] Comment on above: Performed By: #### B 12FOL, VITAD, IRON #### [facility] [address] [place] [address] Dr. Ekta Funk Protein [Mass/Vol] 7.7 g/dL Normal 6.4-8.2 [facility] Comment on above: Performed By: #### B 12FOL, VITAD, IRON #### [facility] [address] [place] [address] Dr. Ekta Funk Sodium [Moles/Vol] 135 mmol/L Critically low 136-[address] [facility] Comment on above: Performed By: #### B 12FOL, VITAD, IRON #### [facility] [address] [place] [address] Dr. Ekta Funk Urea nitrogen [Mass/Vol] 73.0 mg/dL Critically high 7.0-18.0 [facility] Comment on above: Performed By: #### B 12FOL, VITAD, IRON #### [facility] [facility] [address] [place] [address] Dr. Ekta Funk Urea nitrogen/Creatinine [Mass ratio] 23.0 mg/mg Normal [facility] Comment on above: Performed By: #### B 12FOL, VITAD, IRON #### [facility] [address] [place] [address] Dr. Ekta Funk BNPon 10-21-2022 Natriuretic peptide B (Bld) [Mass/Vol] 2007.0 pg/mL Critically high <=900.0 [facility] Comment on above: Performed By: #### C MP #### [facility] [address] [place] [address] Dr. Ekta Funk CBC AUTO DIFFon 02-11-2023 BASO # 0.0 103/ul Normal 0.0-0.1 [facility] Comment on above: Performed By: #### C BC #### [facility] [address] [place] [address] Dr. Ekta Funk Basophils/100 WBC (Bld) 0.2 % Normal 0.2-2.0 [facility] Comment on above: Performed By: #### C BC #### [facility] [address] [place] [address] Dr. Ekta Funk EO # 0.1 103/ul Normal 0.0-0.7 [facility] Comment on above: Performed By: #### C BC #### [facility] [address] [place] [address] Dr. Ekta Funk Eosinophils/100 WBC (Bld) 0.9 % Normal 0.9-7.0 [facility] Comment on above: Performed By: #### C BC #### [facility] [address] [place] [address] Dr. Ekta Funk Erythrocyte distribution width (RBC) [Ratio] 12.8 % Normal 11.0-15.0 [facility] Comment on above: Performed By: #### C BC #### [facility] [address] [place] [address] Dr. Ekta Funk Hematocrit (Bld) [Volume fraction] 38.8 % Normal 36.0-48.0 [facility] Comment on above: Performed By: #### C BC #### [facility] [address] [place] [address] Dr. Ekta Funk Hemoglobin (Bld) [Mass/Vol] 13.3 g/dL Normal 12.0-16.0 [facility] Comment on above: Performed By: #### C BC #### [facility] [address] [place] [address] Dr. Ekta Funk IG # 0.08 10e3/ul Critically high 0.00-0.03 [facility] Comment on above: Performed By: #### C BC #### [facility] [address] [place] [address] Dr. Ekta Funk IG % 0.8 % Critically high 0.0-0.5 [facility] Comment on above: Performed By: #### C BC #### [facility] [address] [place] [address] Dr. Ekta Funk LYMPH # 1.7 103/ul Normal 1.2-3.8 [facility] Comment on above: Performed By: #### C BC #### [facility] [address] [place] [address] Dr. Ekta Funk Lymphocytes/100 WBC (Bld) 17.3 % Critically low 20.5-60.0 [facility] Comment on above: Performed By: #### C BC #### [facility] [address] [place] [address] Dr. Ekta Funk MANUAL DIFF REQ NO Normal [facility] Comment on above: Performed By: #### C BC #### [facility] [address] [place] [address] Dr. Ekta Funk MCH (RBC) [Entitic mass] 32.1 pg Normal 26.7-34.0 [facility] Comment on above: Performed By: #### C BC #### [facility] [address] [place] [address] Dr. Ekta Funk MCHC (RBC) [Mass/Vol] 34.3 g/dL Normal 29.9-35.2 [facility] Comment on above: Performed By: #### C BC #### [facility] [address] [place] [address] Dr. Ekta Funk MCV (RBC) [Entitic vol] 93.7 fL Normal 81.0-99.0 [facility] Comment on above: Performed By: #### C BC #### [facility] [address] [place] [address] Dr. Ekta Funk MONO # 0.6 103/ul Normal 0.3-0.8 [facility] Comment on above: Performed By: #### C BC #### [facility] [address] [place] [address] Dr. Ekta Funk Monocytes/100 WBC (Bld) 6.4 % Normal 1.7-12.0 [facility] Comment on above: Performed By: #### C BC #### [facility] [address] [address] [address] Ekta Funk NEUT # 7.4 103/ul Critically high 1.4-6.5 [facility] Comment on above: Performed By: #### C BC #### [facility] [address] [address] [address] Ekta Funk Neutrophils/100 WBC (Bld) 74.4 % Normal 43.0-75.0 [facility] Comment on above: Performed By: #### C BC #### [facility] [address] [address] [address] Ekta Funk Platelet mean volume (Bld) [Entitic vol] 9.8 fL Normal 9.5-13.5 [facility] Comment on above: Performed By: #### C BC #### [facility] [address] [address] [address] Ekta Funk PLT 193 103/ul Normal 150-450 [facility] Comment on above: Performed By: #### C BC #### [facility] [address] [address] [address] Ekta Funk RBC 4.14 106/ul Critically low 4.20-5.40 [facility] Comment on above: Performed By: #### C BC #### [facility] [address] [address] [address] Ekta Funk WBC 9.9 103/ul Normal 4.0-11.0 [facility] Comment on above: Performed By: #### C BC #### [facility] [address] [address] [address] Ekta Funk PROF 14(COMP METB)on 023 Albumin [Mass/Vol] 3.2 g/dL Critically low 3.4-5.0 [facility] Comment on above: Performed By: #### I NSULIN #### [facility] [address] [address] [address] Ekta Funk Albumin/Globulin [Mass ratio] 0.8 {ratio} Normal [facility] Comment on above: Performed By: #### I NSULIN #### [facility] [address] [address] [address] Ekta Funk ALP [Catalytic activity/Vol] 82 U/L Normal 46-116 [facility] Comment on above: Performed By: #### I NSULIN #### [facility] [address] [address] [address] Ekta Funk ALT [Catalytic activity/Vol] 38 U/L Normal 14-59 [facility] Comment on above: Performed By: #### I NSULIN #### [facility] [address] [address] [address] Ekta Funk Anion gap [Moles/Vol] 19.1 mmol/L Normal [facility] Comment on above: Performed By: #### I NSULIN #### [facility] [address] [place] [address] Dr. Ekta Funk AST [Catalytic activity/Vol] 19 U/L Normal 15-37 [facility] Comment on above: Performed By: #### I NSULIN #### [facility] [address] [address] [address] Ekta Funk Bilirubin [Mass/Vol] 0.4 mg/dL Normal 0.2-1.0 [facility] Comment on above: Performed By: #### I NSULIN #### [facility] [address] [address] [address] Ekta Funk Calcium [Mass/Vol] 9.2 mg/dL Normal 8.5-10.1 [facility] Comment on above: Performed By: #### I NSULIN #### [facility] [address] [address] [address] Ekta Funk Chloride [Moles/Vol] 98 mmol/L Normal 98-107 [facility] Comment on above: Performed By: #### I NSULIN #### [facility] [address] [address] [address] Ekta Funk CO2 [Moles/Vol] 26.4 mmol/L Normal 21.0-32.0 [facility] Comment on above: Performed By: #### I NSULIN #### [facility] [address] [address] [address] Ekta Funk Creatinine [Mass/Vol] 2.20 mg/dL Critically high 0.55-1.02 [facility] Comment on above: Performed By: #### I NSULIN #### [facility] [address] [address] [address] Ekta Funk EGFR-AF AUSTRIAN 26 mL/min/1.73m2 Critically low >=60 [facility] Comment on above: Performed By: #### I NSULIN #### [facility] [address] [address] [address] Ekta Funk EGFR-NON AF AUSTRIAN 22 mL/min/1.73m2 Critically low >=60 [facility] Comment on above: Performed By: #### I NSULIN #### [facility] [address] [address] [address] Ekta Funk Globulin (S) [Mass/Vol] 3.8 g/dL Normal [facility] Comment on above: Performed By: #### I NSULIN #### [facility] [address] [address] [address] Ekta Funk Glucose [Mass/Vol] 142 mg/dL Critically high 74-106 [facility] Comment on above: Performed By: #### I NSULIN #### [facility] [address] [address] [address] Ekta Funk Potassium [Moles/Vol] 4.5 mmol/L Normal 3.5-5.1 [facility] Comment on above: Performed By: #### I NSULIN #### [facility] [address] [address] [address] Ekta Funk Protein [Mass/Vol] 7.0 g/dL Normal 6.4-8.2 [facility] Comment on above: Performed By: #### I NSULIN #### [facility] [address] [address] [address] Ekta Funk Sodium [Moles/Vol] 139 mmol/L Normal 136-145 [facility] Comment on above: Performed By: #### I NSULIN #### [facility] [address] [address] [address] Ekta Funk Urea nitrogen [Mass/Vol] 57.0 mg/dL Critically high 7.0-18.0 [facility] Comment on above: Performed By: #### I NSULIN #### [facility] [address] [address] [address] Ekta Funk Urea nitrogen/Creatinine [Mass ratio] 25.9 mg/mg Normal [facility] Comment on above: Performed By: #### I NSULIN #### [facility] [address] [address] [address] Ekta Funk T3, TOTAL (TRIIODOTHYRONINE) on 10-21-2022 T3, TOTAL 63 ng/dL Critically low 71-180 [facility] Comment on above: Performed By: #### C MP #### [facility] [address] [address] [address] Ekta Funk XR ABD FLAT_UPon 10-21-2022 [...] by: VISHNU MARIE Date: 2022-10-21 11:42 Normal [facility] XR CHEST 2 Von 10-21-2022 XR [...] by: CHRISTIANO MORALES Date: 2022-10-21 11:23 Normal [facility] BNPon 10-20-2022 Natriuretic peptide B (Bld) [Mass/Vol] 2512.0 pg/mL Critically high <=900.0 [facility] Comment on above: Performed By: #### B 12FOL, VITAD, IRON #### [facility] [address] [address] [address] Ekta Funk CARDIAC BRITTANIE ADMITon 023 CK [Catalytic activity/Vol] 35 U/L Normal 26-192 [facility] Comment on above: Performed By: #### B 12FOL, VITAD, IRON #### [facility] [address] [address] [address] Ekta Funk CK.MB [Mass/Vol] 0.64 ng/mL Normal <=3.60 [facility] Comment on above: Performed By: #### B 12FOL, VITAD, IRON #### [facility] [address] [address] [address] Ekta Funk HSTROP 28.1 pg/mL Normal 4.0-51.3 [facility] Comment on above: Result Comment: CUT- OFF POINTS HAVE BEEN ESTABLISHED BASED ON THE FOURTH UNIVERSAL DEFINITIONS OF MYOCARDIAL INFARCTION. THE UPPER REFERENCE LIMIT (URL) OF TROPONIN, DEFINED THE 99TH PERCENTILE OF cTnI DISTRIBUTION IN A REFERENCE POPULATION, HAS BEEN CONFIRMED THE DECISION THRESHOLD FOR [place] DIAGNOSIS. Performed By: #### B 12FOL, VITAD, IRON #### [facility] [address] [address] [address] Ekta Funk EVELYN 57 ng/mL Normal 9-82 [facility] Comment on above: Performed By: #### B 12FOL, VITAD, IRON #### [facility] [address] [address] [address] Ekta Funk CBC AUTO DIFFon 10-20-2022 BASO # 0.0 103/ul Normal 0.0-0.1 [facility] Comment on above: Performed By: #### C BC #### [facility] [address] [address] [address] Ekta Funk Basophils/100 WBC (Bld) 0.2 % Normal 0.2-2.0 [facility] Comment on above: Performed By: #### C BC #### [facility] [address] [place] [address] Dr. Ekta Funk EO # 0.2 103/ul Normal 0.0-0.7 [facility] Comment on above: Performed By: #### C BC #### [facility] [address] [place] [address] Dr. Ekta Funk Eosinophils/100 WBC (Bld) 1.4 % Normal 0.9-7.0 [facility] Comment on above: Performed By: #### C BC #### [facility] [address] [place] [address] Dr. Ekta Funk Erythrocyte distribution width (RBC) [Ratio] 12.9 % Normal 11.0-15.0 [facility] Comment on above: Performed By: #### C BC #### [facility] [address] [place] [address] Dr. Ekta Funk Hematocrit (Bld) [Volume fraction] 34.7 % Critically low 36.0-48.0 [facility] Comment on above: Performed By: #### C BC #### [facility] [address] [place] [address] Dr. Ekta Funk Hemoglobin (Bld) [Mass/Vol] 11.8 g/dL Critically low 12.0-16.0 [facility] Comment on above: Performed By: #### C BC #### [facility] [address] [place] [address] Dr. Ekta Funk IG # 0.09 10e3/ul Critically high 0.00-0.03 [facility] Comment on above: Performed By: #### C BC #### [facility] [address] [place] [address] Dr. Ekta Funk IG % 0.8 % Critically high 0.0-0.5 [facility] Comment on above: Performed By: #### C BC #### [facility] [address] [place] [address] Dr. Ekta Funk LYMPH # 1.9 103/ul Normal 1.2-3.8 [facility] Comment on above: Performed By: #### C BC #### [facility] [address] [place] [address] Dr. Ekta Funk Lymphocytes/100 WBC (Bld) 16.1 % Critically low 20.5-60.0 [facility] Comment on above: Performed By: #### C BC #### [facility] [address] [place] [address] Dr. Ekta Funk MANUAL DIFF REQ NO Normal [facility] Comment on above: Performed By: #### C BC #### [facility] [address] [place] [address] Dr. Ekta Funk MCH (RBC) [Entitic mass] 32.6 pg Normal 26.7-34.0 [facility] Comment on above: Performed By: #### C BC #### [facility] [address] [place] [address] Dr. Ekta Funk MCHC (RBC) [Mass/Vol] 34.0 g/dL Normal 29.9-35.2 [facility] Comment on above: Performed By: #### C BC #### [facility] [address] [place] [address] Dr. Ekta Funk MCV (RBC) [Entitic vol] 95.9 fL Normal 81.0-99.0 [facility] Comment on above: Performed By: #### C BC #### [facility] [address] [place] [address] Dr. Ekta Funk MONO # 0.8 103/ul Normal 0.3-0.8 [facility] Comment on above: Performed By: #### C BC #### [facility] [address] [place] [address] Dr. Ekta Funk Monocytes/100 WBC (Bld) 7.0 % Normal 1.7-12.0 [facility] Comment on above: Performed By: #### C BC #### [facility] [address] [place] [address] Dr. Ekta Funk NEUT # 8.8 103/ul Critically high 1.4-6.5 [facility] Comment on above: Performed By: #### C BC #### [facility] [address] [address] [address] Ekta Funk Neutrophils/100 WBC (Bld) 74.5 % Normal 43.0-75.0 [facility] Comment on above: Performed By: #### C BC #### [facility] [address] [place] [address] Dr. Ekta Funk Platelet mean volume (Bld) [Entitic vol] 9.8 fL Normal 9.5-13.5 [facility] Comment on above: Performed By: #### C BC #### [facility] [address] [place] [address] Dr. Ekta Funk PLT 203 103/ul Normal 150-450 [facility] Comment on above: Performed By: #### C BC #### [facility] [address] [place] [address] Dr. Ekta Funk RBC 3.62 106/ul Critically low 4.20-5.40 [facility] Comment on above: Performed By: #### C BC #### [facility] [address] [place] [address] Dr. Ekta Funk WBC 11.8 103/ul Critically high 4.0-11.0 [facility] Comment on above: Performed By: #### C BC #### [facility] [address] [place] [address] Dr. Ekta Funk CULTURE URINEon 10-20-2022 CULTURE URINE Culture Observations : NO GROWTH. Normal [facility] Comment on above: Performed By: #### I NSULIN #### [facility] [address] [place] [address] Dr. Ekta Funk [facility]11 SARS-CoV-2 (COVID-19) RNA GANESH+probe Ql (Unsp spec) Not detected Normal NOT DETECTED [facility] Comment on above: Result Comment: When diagnostic [...] for this test is supported by the Operator Weapon Locating Radar of Health and Human Service's declaration that [...] By: #### B 12FOL, VITCAMI, AURELIA #### [facility] [address] [place] [address] Dr. Ekta Funk ECHOCARDIO M/2D COMPLETEon 0 10-20-2022 ECHOCARDIO M/2D COMPLETE Patient: SHEILA MAC Exam Date: 10/20/2022 : 1950 Gender:F Ordering : DR KRZYSZTOF HARP . Admission #: [id number] Family : Order #: [id number] CLICK HERE TO VIEW EXAM ECHOCARDIOGRAM REPORT [...] M.D. on 10/20/2022 at 14:57 Normal [facility] PROF 14(COMP METB)on 023 Albumin [Mass/Vol] 2.8 g/dL Critically low 3.4-5.0 [facility] Comment on above: Performed By: #### B 12FOL, VITAD, IRON #### [facility] [address] [place] [address] Dr. Ekta Funk Albumin/Globulin [Mass ratio] 0.7 {ratio} Normal [facility] Comment on above: Performed By: #### B 12FOL, VITAD, IRON #### [facility] [address] [place] [address] Dr. Ekta Funk ALP [Catalytic activity/Vol] 84 U/L Normal 46-116 [facility] Comment on above: Performed By: #### B 12FOL, VITAD, IRON #### [facility] [address] [place] [address] Dr. Ekta Funk ALT [Catalytic activity/Vol] 29 U/L Normal 14-59 [facility] Comment on above: Performed By: #### B 12FOL, VITAD, IRON #### [facility] [address] [place] [address] Dr. Ekta Funk Anion gap [Moles/Vol] 15.9 mmol/L Normal [facility] Comment on above: Performed By: #### B 12FOL, VITAD, IRON #### [facility] [address] [place] [address] Dr. Ekta Funk AST [Catalytic activity/Vol] 15 U/L Normal 15-37 [facility] Comment on above: Performed By: #### B 12FOL, VITAD, IRON #### [facility] [address] [place] [address] Dr. Ekta Funk Bilirubin [Mass/Vol] 0.3 mg/dL Normal 0.2-1.0 [facility] Comment on above: Performed By: #### B 12FOL, VITAD, IRON #### [facility] [address] [place] [address] Dr. Ekta Funk Calcium [Mass/Vol] 8.9 mg/dL Normal 8.5-10.1 [facility] Comment on above: Performed By: #### B 12FOL, VITAD, IRON #### [facility] [address] [address] [address] Ekta Funk Chloride [Moles/Vol] 103 mmol/L Normal 98-107 [facility] Comment on above: Performed By: #### B 12FOL, VITAD, IRON #### [facility] [address] [address] [address] Ekta Funk CO2 [Moles/Vol] 26.3 mmol/L Normal 21.0-32.0 [facility] Comment on above: Performed By: #### B 12FOL, VITAD, IRON #### [facility] [address] [place] [address] Dr. Ekta Funk Creatinine [Mass/Vol] 1.99 mg/dL Critically high 0.55-1.02 [facility] Comment on above: Performed By: #### B 12FOL, VITAD, IRON #### [facility] [address] [address] [address] Ekta Funk EGFR-AF AUSTRIAN 30 mL/min/1.73m2 Critically low >=60 [facility] Comment on above: Performed By: #### B 12FOL, VITAD, IRON #### [facility] [address] [address] [address] Ekta Funk EGFR-NON AF AUSTRIAN 24 mL/min/1.73m2 Critically low >=60 [facility] Comment on above: Performed By: #### B 12FOL, VITAD, IRON #### [facility] [address] [address] [address] Ekta Funk Globulin (S) [Mass/Vol] 4.1 g/dL Normal [facility] Comment on above: Performed By: #### B 12FOL, VITAD, IRON #### [facility] [address] [address] [address] Ekta Funk Glucose [Mass/Vol] 115 mg/dL Critically high 74-106 [facility] Comment on above: Performed By: #### B 12FOL, VITAD, IRON #### [facility] [address] [place] [address] Dr. Ekta Funk Potassium [Moles/Vol] 5.2 mmol/L Critically high 3.5-5.1 [facility] Comment on above: Performed By: #### B 12FOL, VITAD, IRON #### [facility] [address] [place] [address] Dr. Ekta Funk Protein [Mass/Vol] 6.9 g/dL Normal 6.4-8.2 [facility] Comment on above: Performed By: #### B 12FOL, VITAD, IRON #### [facility] [address] [place] [address] Dr. Ekta Fukn Sodium [Moles/Vol] 140 mmol/L Normal 136-145 [facility] Comment on above: Performed By: #### B 12FOL, VITAD, IRON #### [facility] [address] [place] [address] Dr. Ekta Funk Urea nitrogen [Mass/Vol] 45.0 mg/dL Critically high 7.0-18.0 [facility] Comment on above: Performed By: #### B 12FOL, VITAD, IRON #### [facility] [address] [place] [address] Dr. Ekta Funk Urea nitrogen/Creatinine [Mass ratio] 22.6 mg/mg Normal [facility] Comment on above: Performed By: #### B 12FOL, VITAD, IRON #### [facility] [address] [place] [address] Dr. Ekta Funk T4on 10-20-2022 T4 [Mass/Vol] 6.10 ug/dL Normal 4.80-13.90 [facility] Comment on above: Performed By: #### B 12FOL, VITAD, IRON #### [facility] [address] [place] [address] Dr. Ekta Funk TSHon 10-20-2022 TSH 1.336 uIU/mL Normal 0.358-3.740 [facility] Comment on above: Performed By: #### B 12FOL, VITAD, IRON #### [facility] [address] [place] [address] Dr. Ekta Funk UA RANDOM W/MICROSCOPICon BACTERIA TRACE Abnormal NONE SEEN [facility] Comment on above: Performed By: #### B 12FOL, VITAD, IRON #### [facility] [address] [place] [address] Dr. Ekta Funk Bilirubin Ql (U) Negative Normal NEGATIVE [facility] Comment on above: Performed By: #### B 12FOL, VITAD, IRON #### [facility] [address] [place] [address] Dr. Ekta Funk CAST NONE SEEN Normal NONE SEEN [facility] Comment on above: Performed By: #### B 12FOL, VITAD, IRON #### [facility] [address] [place] [address] Dr. Ekta Funk Clarity (U) CLEAR Normal CLEAR [facility] Comment on above: Performed By: #### B 12FOL, VITAD, IRON #### [facility] [address] [place] [address] Dr. Ekta Funk Color (U) LT. YELLOW Normal YELLOW [facility] Comment on above: Performed By: #### B 12FOL, VITAD, IRON #### [facility] [address] [place] [address] Dr. Ekta Funk Crystals LM Nom (Urine sed) NONE SEEN Normal NONE SEEN [facility] Comment on above: Performed By: #### B 12FOL, VITAD, IRON #### [facility] [address] [place] [address] Dr. Ekta Funk Epithelial cells LM Ql (Urine sed) RARE Normal NONE SEEN /RARE [facility] Comment on above: Performed By: #### B 12FOL, VITAD, IRON #### [facility] [address] [place] [address] Dr. Ekta Funk Glucose Ql (U) Negative Normal NEGATIVE [facility] Comment on above: Performed By: #### B 12FOL, VITAD, IRON #### [facility] [address] [place] [address] Dr. Ekta Funk Hemoglobin Ql (U) Negative Normal NEGATIVE [facility] Comment on above: Performed By: #### B 12FOL, VITAD, IRON #### [facility] [address] [place] [address] Dr. Ekta Funk Ketones Ql (U) Negative Normal NEGATIVE [facility] Comment on above: Performed By: #### B 12FOL, VITAD, IRON #### [facility] [address] [place] [address] Dr. Ekta Funk LEUKOCYTES Negative Normal NEGATIVE [facility] Comment on above: Performed By: #### B 12FOL, VITAD, IRON #### [facility] [address] [place] [address] Dr. Ekat Funk MUCOUS NONE SEEN Normal NONE SEEN [facility] Comment on above: Performed By: #### B 12FOL, VITAD, IRON #### [facility] [address] [place] [address] Dr. Ekta Funk Nitrite Ql (U) Negative Normal NEGATIVE [facility] Comment on above: Performed By: #### B 12FOL, VITAD, IRON #### [facility] [address] [place] [address] Dr. Ekta Funk pH (U) 6.0 [pH] Normal 5-9 [facility] Comment on above: Performed By: #### B 12FOL, VITAD, IRON #### [facility] [address] [place] [address] Dr. Ekta Funk RBC 0-2 Normal 0-2 [facility] Comment on above: Performed By: #### B 12FOL, VITAD, IRON #### [facility] [address] [place] [address] Dr. Ekta Funk SPEC GRAVITY <=1.005 Abnormal 1.005-<=1.025 [facility] Comment on above: Performed By: #### B 12FOL, VITAD, IRON #### [facility] [address] [address] [address] Ekta Funk UA PROTEIN Negative Normal NEGATIVE/ TRACE [facility] Comment on above: Performed By: #### B 12FOL, VITAD, IRON #### [facility] [address] [place] [address] Dr. Ekta Funk Urobilinogen Qn (U) 0.2 {Ivan'U}/dL Normal 0.2 - 1. 0 [facility] Comment on above: Performed By: #### B 12FOL, VITAD, IRON #### [facility] [address] [place] [address] Dr. Ekta Funk WBC NONE SEEN Normal NONE SEEN [facility] Comment on above: Performed By: #### B 12FOL, VITAD, IRON #### [facility] [address] [place] [address] Dr. Ekta Funk BNPon 10-19-2022 Natriuretic peptide B (Bld) [Mass/Vol] 1355.0 pg/mL Critically high <=900.0 [facility] Comment on above: Performed By: #### B 12FOL, VITAD, IRON #### [facility] [address] [place] [address] Dr. Ekta Funk INSULINon 10-19-2022 Insulin 12.4 uIU/mL Normal 2.6-24.9 [facility] Comment on above: Performed By: #### I NSULIN #### [facility] [address] [place] [address] Dr. Ekta Funk OCC BLD IMMUNO SCREENon OCCULT BLOOD Positive Abnormal NEGATIVE [facility] Comment on above: Performed By: #### B 12FOL, VITAD, IRON #### [facility] [address] [place] [address] Dr. Ekta Funk PROF CHEM 8 (BAS METB)on Anion gap [Moles/Vol] 15.8 mmol/L Normal [facility] Comment on above: Performed By: #### B 12FOL, VITAD, IRON #### [facility] [address] [place] [address] Dr. Ekta Funk Calcium [Mass/Vol] 8.8 mg/dL Normal 8.5-10.1 [facility] Comment on above: Performed By: #### B 12FOL, VITAD, IRON #### [facility] [address] [address] [address] Ekta Funk Chloride [Moles/Vol] 107 mmol/L Normal 98-107 [facility] Comment on above: Performed By: #### B 12FOL, VITAD, IRON #### [facility] [address] [address] [address] Ekta Funk CO2 [Moles/Vol] 21.5 mmol/L Normal 21.0-32.0 [facility] Comment on above: Performed By: #### B 12FOL, VITAD, IRON #### [facility] [address] [address] [address] Ekta Funk Creatinine [Mass/Vol] 1.62 mg/dL Critically high 0.55-1.02 [facility] Comment on above: Performed By: #### B 12FOL, VITAD, IRON #### [facility] [address] [address] [address] Ekta Funk EGFR-AF AUSTRIAN 38 mL/min/1.73m2 Critically low >=60 [facility] Comment on above: Performed By: #### B 12FOL, VITAD, IRON #### [facility] [address] [address] [address] Ekta Funk EGFR-NON AF AUSTRIAN 31 mL/min/1.73m2 Critically low >=60 [facility] Comment on above: Performed By: #### B 12FOL, VITAD, IRON #### [facility] [address] [address] [address] Ekta Funk Glucose [Mass/Vol] 134 mg/dL Critically high 74-106 [facility] Comment on above: Performed By: #### B 12FOL, VITAD, IRON #### [facility] [address] [address] [address] Ekta Funk Potassium [Moles/Vol] 5.3 mmol/L Critically high 3.5-5.1 [facility] Comment on above: Performed By: #### B 12FOL, VITAD, IRON #### [facility] [address] [place] [address] Dr. Ekta Funk Sodium [Moles/Vol] 139 mmol/L Normal 136-145 [facility] Comment on above: Performed By: #### B 12FOL, VITAD, IRON #### [facility] [address] [place] [address] Dr. Ekta Funk Urea nitrogen [Mass/Vol] 37.0 mg/dL Critically high 7.0-18.0 [facility] Comment on above: Performed By: #### B 12FOL, VITAD, IRON #### [facility] [address] [place] [address] Dr. Ekta Funk Urea nitrogen/Creatinine [Mass ratio] 22.8 mg/mg Normal [facility] Comment on above: Performed By: #### B 12FOL, VITAD, IRON #### [facility] [address] [place] [address] Dr. Ekta Funk TROPONIN, HIGH SENSITIVITYon 10-19-2022 HSTROP 53.2 pg/mL Critically high 4.0-51.3 [facility] Comment on above: Result Comment: CUT- OFF POINTS HAVE BEEN ESTABLISHED BASED ON THE FOURTH UNIVERSAL DEFINITIONS OF MYOCARDIAL INFARCTION. THE UPPER REFERENCE LIMIT (URL) OF TROPONIN, DEFINED THE 99TH PERCENTILE OF cTnI DISTRIBUTION IN A REFERENCE POPULATION, HAS BEEN CONFIRMED THE DECISION THRESHOLD FOR [place] DIAGNOSIS. Performed By: #### B 12FOL, VITAD, IRON #### [facility] [address] [place] [address] Dr. Ekta Funk BNPon 10-18-2022 Natriuretic peptide B (Bld) [Mass/Vol] 1386.0 pg/mL Critically high <=900.0 [facility] Comment on above: Performed By: #### C VDTBH #### [facility] [address] [place] [address] Dr. Ekta Funk CARDIAC BRITTANIE ADMITon 023 CK [Catalytic activity/Vol] 34 U/L Normal 26-192 [facility] Comment on above: Performed By: #### C VDTBH #### [facility] [address] [address] [address] Ekta Funk CK.MB [Mass/Vol] 1.43 ng/mL Normal <=3.60 [facility] Comment on above: Performed By: #### C VDTBH #### [facility] [address] [address] [address] Ekta Funk HSTROP 74.1 pg/mL Critically high 4.0-51.3 [facility] Comment on above: Result Comment: CUT- OFF POINTS HAVE BEEN ESTABLISHED BASED ON THE FOURTH UNIVERSAL DEFINITIONS OF MYOCARDIAL INFARCTION. THE UPPER REFERENCE LIMIT (URL) OF TROPONIN, DEFINED THE 99TH PERCENTILE OF cTnI DISTRIBUTION IN A REFERENCE POPULATION, HAS BEEN CONFIRMED THE DECISION THRESHOLD FOR [place] DIAGNOSIS. Performed By: #### C VDTBH #### [facility] [address] [place] [address] Dr. Ekta Funk EVELYN 52 ng/mL Normal 9-82 [facility] Comment on above: Performed By: #### C VDTBH #### [facility] [address] [place] [address] Dr. Ekta Funk CBC AUTO DIFFon 10-18-2022 BASO # 0.0 103/ul Normal 0.0-0.1 [facility] Comment on above: Performed By: #### C BC #### [facility] [address] [place] [address] Dr. Ekta Funk Basophils/100 WBC (Bld) 0.3 % Normal 0.2-2.0 [facility] Comment on above: Performed By: #### C BC #### [facility] [address] [place] [address] Dr. Ekta Funk EO # 0.1 103/ul Normal 0.0-0.7 [facility] Comment on above: Performed By: #### C BC #### [facility] [address] [place] [address] Dr. Ekta Funk Eosinophils/100 WBC (Bld) 0.9 % Normal 0.9-7.0 [facility] Comment on above: Performed By: #### C BC #### [facility] [address] [place] [address] Dr. Ekta Funk Erythrocyte distribution width (RBC) [Ratio] 13.2 % Normal 11.0-15.0 [facility] Comment on above: Performed By: #### C BC #### [facility] [address] [place] [address] Dr. Ekta Funk Hematocrit (Bld) [Volume fraction] 38.9 % Normal 36.0-48.0 [facility] Comment on above: Performed By: #### C BC #### [facility] [address] [place] [address] Dr. Ekta Funk Hemoglobin (Bld) [Mass/Vol] 12.4 g/dL Normal 12.0-16.0 [facility] Comment on above: Performed By: #### C BC #### [facility] [address] [place] [address] Dr. Ekta Funk IG # 0.08 10e3/ul Critically high 0.00-0.03 [facility] Comment on above: Performed By: #### C BC #### [facility] [address] [place] [address] Dr. Ekta Funk IG % 0.5 % Normal 0.0-0.5 [facility] Comment on above: Performed By: #### C BC #### [facility] [address] [place] [address] Dr. Ekta Funk LYMPH # 1.4 103/ul Normal 1.2-3.8 [facility] Comment on above: Performed By: #### C BC #### [facility] [address] [place] [address] Dr. Ekta Funk Lymphocytes/100 WBC (Bld) 9.6 % Critically low 20.5-60.0 [facility] Comment on above: Performed By: #### C BC #### [facility] [address] [place] [address] Dr. Ekta Funk MANUAL DIFF REQ NO Normal [facility] Comment on above: Performed By: #### C BC #### [facility] [address] [address] [address] Ekta Funk MCH (RBC) [Entitic mass] 32.3 pg Normal 26.7-34.0 [facility] Comment on above: Performed By: #### C BC #### [facility] [address] [address] [address] Ekta Funk MCHC (RBC) [Mass/Vol] 31.9 g/dL Normal 29.9-35.2 [facility] Comment on above: Performed By: #### C BC #### [facility] [address] [address] [address] Ekta Funk MCV (RBC) [Entitic vol] 101.3 fL Critically high 81.0-99.0 [facility] Comment on above: Performed By: #### C BC #### [facility] [address] [place] [address] Dr. Ekta Funk MONO # 0.9 103/ul Critically high 0.3-0.8 [facility] Comment on above: Performed By: #### C BC #### [facility] [address] [address] [address] Ekta Funk Monocytes/100 WBC (Bld) 6.3 % Normal 1.7-12.0 [facility] Comment on above: Performed By: #### C BC #### [facility] [address] [place] [address] Dr. Ekta Funk NEUT # 12.0 103/ul Critically high 1.4-6.5 [facility] Comment on above: Performed By: #### C BC #### [facility] [address] [place] [address] Dr. Ekta Funk Neutrophils/100 WBC (Bld) 82.4 % Critically high 43.0-75.0 [facility] Comment on above: Performed By: #### C BC #### [facility] [address] [place] [address] Dr. Ekta Funk Platelet mean volume (Bld) [Entitic vol] 9.7 fL Normal 9.5-13.5 [facility] Comment on above: Performed By: #### C BC #### [facility] [address] [address] [address] Ekta Funk PLT 176 103/ul Normal 150-450 [facility] Comment on above: Performed By: #### C BC #### [facility] [address] [address] [address] Ekta Funk RBC 3.84 106/ul Critically low 4.20-5.40 [facility] Comment on above: Performed By: #### C BC #### [facility] [address] [address] [address] Ekta Funk WBC 14.6 103/ul Critically high 4.0-11.0 [facility] Comment on above: Performed By: #### C BC #### [facility] [address] [place] [address] Dr. Ekta Funk FREE THYROXINE INDEX T7on FTI 2.34 Normal 1.30-4.50 [facility] Comment on above: Performed By: #### C VDTBH #### [facility] [address] [place] [address] Dr. Ekta Funk T3U 36.0 % Normal 30.0-39.0 [facility] Comment on above: Performed By: #### C VDTBH #### [facility] [address] [place] [address] Dr. Ekta Funk T4 [Mass/Vol] 6.50 ug/dL Normal 4.80-13.90 [facility] Comment on above: Performed By: #### C VDTBH #### [facility] [address] [place] [address] Dr. kEta Funk GLYCOHEMOGLOBIN A1Con 2022 ADA RECOMMENDATION SEE BELOW Normal [facility] Comment on above: Result Comment: ADA RECOMMENDED LIMIT 4.0 - 6.0 ADA THERAPEUTIC TARGET < 7.0 ACTION SUGGESTED > 7.0 Performed By: #### B 12FOL, VITAD, IRON #### [facility] [address] [place] [address] Dr. Ekta Funk Glucose [Mass/Vol] 140 mg/dL Normal [facility] Comment on above: Performed By: #### B 12FOL, VITAD, IRON #### [facility] [address] [address] [address] Ekta Funk HbA1c (Bld) [Mass fraction] 6.5 % Critically high 4.5-6.2 [facility] Comment on above: Performed By: #### B 12FOL, VITAD, IRON #### [facility] [address] [address] [address] Ekta Funk IRONon 10-18-2022 Iron [Mass/Vol] 62.0 ug/dL Normal 50.0-170.0 [facility] Comment on above: Performed By: #### B 12FOL, VITAD, IRON #### [facility] [address] [place] [address] Dr. Ekta Funk LIPID PROFILEon 10-18-2022 CHOL-HDL RATIO NORM SEE BELOW Normal [facility] Comment on above: Result Comment: 3.3 - 4.4 LOW RISK 4.4 - 7.1 AVERAGE RISK 7.1 - 11.0 MODERATE RISK >11.0 HIGH RISK Performed By: #### C VDTBH #### [facility] [address] [place] [address] Dr. Ekta Funk Cholesterol [Mass/Vol] 242 mg/dL Critically high <=200 [facility] Comment on above: Performed By: #### C VDTBH #### [facility] [address] [address] [address] Ekta Funk Cholesterol in HDL [Mass/Vol] 74 mg/dL Critically high 40-60 [facility] Comment on above: Performed By: #### C VDTBH #### [facility] [address] [address] [address] Ekta Funk Cholesterol in LDL [Mass/Vol] 139.4 mg/dL Normal [facility] Comment on above: Performed By: #### C VDTBH #### [facility] [address] [place] [address] Dr. Ekta Funk Cholesterol.total/Ch olesterol in HDL [Mass ratio] 3.3 {ratio} Normal [facility] Comment on above: Performed By: #### C VDTBH #### [facility] [address] [address] [address] Ekta Funk HDL NORMAL > or = 60 mg/dl - LO W CARDIOVASCULAR RISK <40 mg/dl - HIGH CARDIOVASCULAR RISK Normal [facility] Comment on above: Performed By: #### C VDTBH #### [facility] [address] [address] [address] Ekta Funk LDL CALC NORMAL SEE BELOW Normal [facility] Comment on above: Result Comment: <100 mg/dl OPTIMAL 100 - 129 mg/dl NEAR OR ABOVE OPTIMAL 130 - 159 mg/dl BORDERLINE HIGH 160 - 189 mg/dl HIGH >190 mg/dl VERY HIGH Performed By: #### C VDTBH #### [facility] [address] [place] [address] Dr. Ekta Funk Triglyceride [Mass/Vol] 143 mg/dL Normal <=150 [facility] Comment on above: Performed By: #### C VDTBH #### [facility] [address] [address] [address] Ekta Funk VLDL CALC 28.6 mg/dL Normal [facility] Comment on above: Performed By: #### C VDTBH #### [facility] [address] [place] [address] Dr. Ekta Funk PROF 14(COMP METB)on 023 Albumin [Mass/Vol] 2.8 g/dL Critically low 3.4-5.0 [facility] Comment on above: Performed By: #### C VDTBH #### [facility] [address] [address] [address] Ekta Funk Albumin/Globulin [Mass ratio] 0.7 {ratio} Normal [facility] Comment on above: Performed By: #### C VDTBH #### [facility] [address] [address] [address] Ekta Funk ALP [Catalytic activity/Vol] 90 U/L Normal 46-116 [facility] Comment on above: Performed By: #### C VDTBH #### [facility] [address] [address] [address] Ekta Funk ALT [Catalytic activity/Vol] 26 U/L Normal 14-59 [facility] Comment on above: Performed By: #### C VDTBH #### [facility] [address] [address] [address] Ekta Funk Anion gap [Moles/Vol] 14.5 mmol/L Normal [facility] Comment on above: Performed By: #### C VDTBH #### [facility] [address] [address] [address] Ekta Funk AST [Catalytic activity/Vol] 14 U/L Critically low 15-37 [facility] Comment on above: Performed By: #### C VDTBH #### [facility] [address] [place] [address] Dr. Ekta Funk Bilirubin [Mass/Vol] 0.4 mg/dL Normal 0.2-1.0 [facility] Comment on above: Performed By: #### C VDTBH #### [facility] [address] [place] [address] Dr. Ekta Funk Calcium [Mass/Vol] 8.9 mg/dL Normal 8.5-10.1 [facility] Comment on above: Performed By: #### C VDTBH #### [facility] [address] [place] [address] Dr. Ekta Funk Chloride [Moles/Vol] 106 mmol/L Normal 98-107 [facility] Comment on above: Performed By: #### C VDTBH #### [facility] [address] [address] [address] Ekta Funk CO2 [Moles/Vol] 23.5 mmol/L Normal 21.0-32.0 [facility] Comment on above: Performed By: #### C VDTBH #### [facility] [address] [place] [address] Dr. Ekta Funk Creatinine [Mass/Vol] 1.70 mg/dL Critically high 0.55-1.02 [facility] Comment on above: Performed By: #### C VDTBH #### [facility] [address] [address] [address] Ekta Funk EGFR-AF AUSTRIAN 36 mL/min/1.73m2 Critically low >=60 [facility] Comment on above: Performed By: #### C VDTBH #### [facility] [address] [address] [address] Ekta Funk EGFR-NON AF AUSTRIAN 29 mL/min/1.73m2 Critically low >=60 [facility] Comment on above: Performed By: #### C VDTBH #### [facility] [address] [address] [address] Ekta Funk Globulin (S) [Mass/Vol] 4.0 g/dL Normal [facility] Comment on above: Performed By: #### C VDTBH #### [facility] [address] [address] [address] Ekta Funk Glucose [Mass/Vol] 99 mg/dL Normal 74-106 [facility] Comment on above: Performed By: #### C VDTBH #### [facility] [address] [address] [address] Ekta Funk Potassium [Moles/Vol] 5.0 mmol/L Normal 3.5-5.1 [facility] Comment on above: Performed By: #### C VDTBH #### [facility] [address] [address] [address] Ekta Funk Protein [Mass/Vol] 6.8 g/dL Normal 6.4-8.2 [facility] Comment on above: Performed By: #### C VDTBH #### [facility] [address] [address] [address] Ekta Funk Sodium [Moles/Vol] 139 mmol/L Normal 136-145 [facility] Comment on above: Performed By: #### C VDTBH #### [facility] [address] [address] [address] Ekta Funk Urea nitrogen [Mass/Vol] 36.0 mg/dL Critically high 7.0-18.0 [facility] Comment on above: Performed By: #### C VDTBH #### [facility] [address] [address] [address] Ekta Funk Urea nitrogen/Creatinine [Mass ratio] 21.2 mg/mg Normal [facility] Comment on above: Performed By: #### C VDTBH #### [facility] [address] [address] [address] Ekta Funk TSHon 10-18-2022 TSH 0.910 uIU/mL Normal 0.358-3.740 [facility] Comment on above: Performed By: #### C VDTBH #### [facility] [address] [address] [address] Ekta Funk Covid-19 PCR ([facility])on 09-10 SARS-CoV-2 (COVID-19) RNA GANESH+probe Ql (Unsp spec) Detected Abnormal NOT DETECTED [facility] Comment on above: Result Comment: This test is not yet approved or cleared by the [place] FDA. When there are no FDA-approved or cleared tests available, and other criteria are met, FDA can make tests available under an emergency access mechanism called an Emergency Use Authorization (EUA). The EUA for this test is supported by the [place] of [employer] and Human Service's declaration that [...] used). Performed By: #### C MP #### [facility] [address] [id number] Ekta Funk INFLUENZA A AND B AGon 09-25 INFLUANEGH SEE BELOW Normal [facility] Comment on above: Result Comment: Nega tive for Flu A protein angiten. Infection due to Flu A cannot be ruled out. Flu A angiten in the sample may be below the detection limit of the test. Performed By: #### B 12FOL, VITAD, IRON #### [facility] [address] [address] [address] Ekta Funk [facility] SEE BELOW Normal [facility] Comment on above: Result Comment: Nega tive for Flu B protein antigen. Infection due to Flu B cannot be ruled out. Flu B antigen in the sample may be below the detection limit of the test. Performed By: #### B 12FOL, VITAD, IRON #### [facility] [address] [address] [address] Ekta Funk INFLUENZA A AG Negative Normal NEGATIVE SEE COMMENT [facility] Comment on above: Performed By: #### B 12FOL, VITAD, IRON #### [facility] [address] [address] [address] Ekta Funk INFLUENZA B AG Negative Normal NEGATIVE SEE COMMENT [facility] Comment on above: Performed By: #### B 12FOL, VITAD, IRON #### [facility] [address] [place] [address] Dr. Ekta Funk US CAROTID ART BILon [...] by: GODWIN BECK Date: 2022-05-26 16:06 Normal [facility] MRI BRAIN WO CONon MRI BRAIN [...] by: VISHNU MARIE Date: 2022-05-25 10:45 Normal [facility] ECHOCARDIO M/2D COMPLETEon 0 05-24-2022 ECHOCARDIO M/2D COMPLETE Patient: SHEILA MAC Exam Date: 05/24/2022 : 1950 Gender:F Ordering : DR KRZYSZTOF HARP . Admission #: [id number] Family : Order #: [id number] CLICK HERE TO VIEW EXAM ECHOCARDIOGRAM REPORT [...] M.D. on 05/24/2022 at 14:45 Normal The [facility] BASIC METABOLIC PANELon 03- Calcium mass conc 9.4 mg/dL Normal 8.6-10.3 The [facility] Comment on above: Order Comment: No: D o not add to previous draw Performed By: #### 0 0071 #### [facility] [address] [place] [address], [place] Chloride molar conc 108 mmol/L High 98-107 The [facility] Comment on above: Order Comment: No: D o not add to previous draw Performed By: #### 0 0071 #### [facility] [address] [place] [address], [place] CO2 molar conc 22 mmol/L Normal 21-[address] [facility] Comment on above: Order Comment: No: D o not add to previous draw Performed By: #### 0 0071 #### [facility] [address] [place] [address], [place] Creatinine mass conc 1.18 mg/dL Normal 0.60-1.20 [facility] Comment on above: Order Comment: No: D o not add to previous draw Performed By: #### 0 0071 #### [facility] [address] [place] [address], [place] GFR/1.73 sq M predicted among blacks MDRD vol rate/area (S/P/Bld) 55 ml/min/1.73sq m Abnormal >60 The [facility] Comment on above: Order Comment: No: D o not add to previous draw Performed By: #### 0 0071 #### [facility] [address] [place] [address], [place] GFR/1.73 sq M predicted among non-blacks MDRD vol rate/area (S/P/Bld) 45 ml/min/1.73sq m Abnormal >60 The [facility] Comment on above: Order Comment: No: D o not add to previous draw Performed By: #### 0 0071 #### [facility] [address] [place] [address], [place] Glucose mass conc 166 mg/dL High 70-100 [facility] Comment on above: Order Comment: No: D o not add to previous draw Performed By: #### 0 0071 #### [facility] [address] [place] [address], [facility] Potassium molar conc 4.1 mmol/L Normal 3.5-5.1 [facility] Comment on above: Order Comment: No: D o not add to previous draw Performed By: #### 0 0071 #### [facility] [address] [place] [address], [facility] Sodium molar conc 140 mmol/L Normal 136-145 [facility] Comment on above: Order Comment: No: D o not add to previous draw Performed By: #### 0 0071 #### [facility] [address] [place] [address], [facility] Urea nitrogen mass conc 21 mg/dL Normal 7-25 [facility] Comment on above: Order Comment: No: D o not add to previous draw Performed By: #### 0 0071 #### [facility] [address] [place], [place] [address] CBC COMPLETE BLOOD COUNTon 0 - Erythrocyte distribution width Ratio (RBC) 12.9 % Normal 11.5-15.0 [facility] Comment on above: Order Comment: No: D o not add to previous draw Performed By: #### 5 0608 #### [facility] [address] [place] [id number], [facility] Hematocrit Volume Fraction (Bld) 36.7 % Normal 36.0-45.0 [facility] Comment on above: Order Comment: No: D o not add to previous draw Performed By: #### 5 0608 #### [facility] [address] [place] [address], [facility] Hemoglobin mass conc (Bld) 12.4 g/dL Normal 12.0-15.0 [facility] Comment on above: Order Comment: No: D o not add to previous draw Performed By: #### 5 0608 #### [facility] [address] [place] [address], [facility] MCH Entitic mass (RBC) 31.2 pg Normal 27.0-33.0 [facility] Comment on above: Order Comment: No: D o not add to previous draw Performed By: #### 5 0608 #### [facility] [address] [place] [address], [facility] MCHC mass conc (RBC) 33.8 g/dL Normal 32.0-35.0 [facility] Comment on above: Order Comment: No: D o not add to previous draw Performed By: #### 5 0608 #### [facility] [address] MCV Entitic volume (RBC) 92.4 fL Normal 82.0-98.0 [facility] Comment on above: Order Comment: No: D o not add to previous draw Performed By: #### 5 0608 #### [facility] [address] Nucleated RBC/100 WBC Ratio (Bld) 0 % Normal 0-0 [facility] Comment on above: Order Comment: No: D o not add to previous draw Performed By: #### 5 0608 #### [facility] [address] [place] [address], [facility] PLAT CNT 227 10*3/uL Normal 150-400 The [facility] Comment on above: Order Comment: No: D o not add to previous draw Performed By: #### 5 0608 #### [facility] [address] [place] [address], [facility] RBC #/vol (Bld) 3.97 10*6/uL Normal 3.80-5.00 [facility] Comment on above: Order Comment: No: D o not add to previous draw Performed By: #### 5 0608 #### [facility] [address] WBC #/vol (Bld) 5.55 10*3/uL Normal 4.00-10.60 [facility] Comment on above: Order Comment: No: D o not add to previous draw Performed By: #### 5 0608 #### [facility] [address] Cardiovascular Lab Reporton 11-20-2018 Cardiovascular Lab Report [facility] Patient Name: [facility] Sheila MR #: [id number] Department of Physician: Bong Bolivar Shellie Gaspar M.D. Division of Service Date: 11/20/2018 Cardiology Birthdate: 1950 Adult Cardiovascular Room #: [id number] [facility] [address] [facility]. [place] [address] Cardiovascular Laboratory Report INDICATION: The patient is a 68-year-old woman who was evaluated in Cardiology Clinic because of new onset symptoms of shortness of breath on mild exertion. Her stress test showed evidence of djxxy-eh-[id number] area of inferoapical ischemia; because of that, she was referred for cardiac catheterization. PROCEDURES: 1. Right heart catheterization. 2. Bilateral selective coronary angiography. 3. Limited right femoral angiography. METHOD: Procedure was explained patient with risks and benefits. She signed informed consent. 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 The right groin area was prepped and draped in usual fashion. Using micropuncture technique, the right common femoral artery was accessed. The inner cannula was advanced. Limited femoral angiography was performed followed by upsizing to a 6-Serbian x 11 cm sheath. Access was also obtained using the same technique in the right common femoral vein and a 6-Serbian x 11 cm sheath was placed. A 6-Serbian Michel catheter was used for right heart catheterization with measurement of pressures and calculation of cardiac output using the estimated Ivory method. Michel catheter was removed. Bilateral selective coronary angiography was then performed using 6-Serbian JL4 and JR4 diagnostic catheters. Catheters were [...] Gaspar M.D. Date Trans: 11/20/2018 09:31 Cyndy/alvina [id number] cc: Krzysztof Harp M.D. [address] [facility] [id number] Normal [facility] BASIC METABOLIC PANELon 11-08 Calcium mass conc 9.5 mg/dL Normal 8.6-10.3 [facility] Comment on above: Order Comment: No: D o not add to previous draw Performed By: #### 0 0071 #### [facility] [address] [place] [address], [place] Chloride molar conc 105 mmol/L Normal 98-107 [facility] Comment on above: Order Comment: No: D o not add to previous draw Performed By: #### 0 0071 #### [facility] [address] [place] [address], [place] CO2 molar conc 24 mmol/L Normal 21-[address] [facility] Comment on above: Order Comment: No: D o not add to previous draw Performed By: #### 0 0071 #### [facility] [address] [place] [address], [place] Creatinine mass conc 1.42 mg/dL High 0.60-1.20 [facility] Comment on above: Order Comment: No: D o not add to previous draw Performed By: #### 0 0071 #### [facility] [address] [place] [address], [place] GFR/1.73 sq M predicted among blacks MDRD vol rate/area (S/P/Bld) 45 ml/min/1.73sq m Abnormal >60 The [facility] Comment on above: Order Comment: No: D o not add to previous draw Performed By: #### 0 0071 #### [facility] [address] [place] [address], [place] GFR/1.73 sq M predicted among non-blacks MDRD vol rate/area (S/P/Bld) 36 ml/min/1.73sq m Abnormal >60 [facility] Comment on above: Order Comment: No: D o not add to previous draw Performed By: #### 0 0071 #### [facility] [address] [place] [address], [place] Glucose mass conc 86 mg/dL Normal 70-100 [facility] Comment on above: Order Comment: No: D o not add to previous draw Performed By: #### 0 0071 #### [facility] [address] [place] [address], [facility] Potassium molar conc 4.2 mmol/L Normal 3.5-5.1 [facility] Comment on above: Order Comment: No: D o not add to previous draw Performed By: #### 0 0071 #### [facility] [address] [place] [address], [facility] Sodium molar conc 138 mmol/L Normal 136-145 [facility] Comment on above: Order Comment: No: D o not add to previous draw Performed By: #### 0 0071 #### [facility] [address] [place] [address], [facility] Urea nitrogen mass conc 19 mg/dL Normal 7-25 [facility] Comment on above: Order Comment: No: D o not add to previous draw Performed By: #### 0 0071 #### [facility] [address] [place] [address], [facility] CBC COMPLETE BLOOD COUNTon 0 - Erythrocyte distribution width Ratio (RBC) 13.0 % Normal 11.5-15.0 [facility] Comment on above: Order Comment: No: D o not add to previous draw Performed By: #### 5 0608 #### [facility] [address] [place] [address], [facility] Hematocrit Volume Fraction (Bld) 38.3 % Normal 36.0-45.0 [facility] Comment on above: Order Comment: No: D o not add to previous draw Performed By: #### 5 0608 #### [facility] [address] [place] [address], [facility] Hemoglobin mass conc (Bld) 12.6 g/dL Normal 12.0-15.0 [facility] Comment on above: Order Comment: No: D o not add to previous draw Performed By: #### 5 0608 #### [facility] [address] MCH Entitic mass (RBC) 31.1 pg Normal 27.0-33.0 [facility] Comment on above: Order Comment: No: D o not add to previous draw Performed By: #### 5 0608 #### [facility] [address] [place] [address], [facility] MCHC mass conc (RBC) 32.9 g/dL Normal 32.0-35.0 [facility] Comment on above: Order Comment: No: D o not add to previous draw Performed By: #### 5 0608 #### [facility] [address] [place] [address], [facility] MCV Entitic volume (RBC) 94.6 fL Normal 82.0-98.0 [facility] Comment on above: Order Comment: No: D o not add to previous draw Performed By: #### 5 0608 #### [facility] [address] Nucleated RBC/100 WBC Ratio (Bld) 0 % Normal 0-0 [facility] Comment on above: Order Comment: No: D o not add to previous draw Performed By: #### 5 0608 #### [facility] [address] [place] [address], [facility] PLAT CNT 266 10*3/uL Normal 150-400 The [facility] Comment on above: Order Comment: No: D o not add to previous draw Performed By: #### 5 0608 #### [facility] [address] [place] [address], [facility] RBC #/vol (Bld) 4.05 10*6/uL Normal 3.80-5.00 [facility] Comment on above: Order Comment: No: D o not add to previous draw Performed By: #### 5 0608 #### [facility] [address] [place] [address], [facility] WBC #/vol (Bld) 9.01 10*3/uL Normal 4.00-10.60 [facility] Comment on above: Order Comment: No: D o not add to previous draw Performed By: #### 5 0608 #### [facility] [address] PROTHROMBIN TIMEon 9 INR Coag RelTime (PPP) 1.07 {INR} Normal 0.91-1.16 [facility] Comment on above: Order Comment: [...] 1995;108:231S-246S. Performed By: #### 5 6101 #### [facility] [address] Prothrombin time (PT) Coag time (PPP) 13.9 s Normal 12.3-14.8 [facility] Comment on above: Order Comment: No: D o not add to previous draw Result Comment: ALL RESULTS MUST BE INTERPRETED WITH RESPECT TO BLOOD DRAWING ARTIFACT OR DILUTION ERROR OF ANTICOAGULANT AT THE TIME OF SAMPLING. Performed By: #### 5 6101 #### [facility] [address] [place], [place] [address] Encounters Encounter Date Encounter Type Care Provider Facility Start: 01-16-2023 ambulatory JN GARCIA . Facility :[facility] Start: 01-15-2023 End: 01-15-2023 ambulatory APRIL CASTANEDA . Facility:[facility] Start: 01-10-2023 End: 01-11-[address] KRZYSZTOF HARP . Facility:[facility] Start: 12-15-2022 End: 12-15-2022 ambulatory APRIL CASTANEDA . Facility:[facility] Start: 12-15-2022 ambulatory CECILIAMILANA RIVERA [facility] Start: 12-05-2022 End: 12-06-[address] [...] End: 11-20-2018 Patient encounter procedure PROVIDER UNKNOWN Facility:[facility] Start: 11-13-2018 End: 11-14-2018 Patient encounter procedure DEFAULT PHYSICIAN Facility:[facility] Start: 10-31-2018 End: 11-01-2018 Patient encounter procedure DEFAULT PHYSICIAN Facility:[facility] Start: 09-23-2018 End: 09-24-2018 Patient encounter procedure DEFAULT PHYSICIAN Facility:[facility] Start: 09-05-2018 End: 09-06-2018 Patient encounter procedure DEFAULT PHYSICIAN Facility:[facility] Payers Date Payer Category Payer Unknown [id number] 1950 Unknown [id number] 2.16.8 40.1.355399.3.579.2.647 1950 Unknown [id number] 2.16.8 40.1.933607.3.579.2.647 1950 Unknown [id number] 2.16.8 40.1.320903.3.579.2.647 1950 Unknown [id number] 2.16.8 40.1.299544.3.579.2.647 1950 Unknown [id number] 2.16.8 40.1.335785.3.579.2.647 1950 Unknown [id number] 2.16.84 0.1.422917.3.579.2.593 1950 Unknown [id number] 2.16.84 0.1.516906.3.579.2.593 1950 Unknown [id number] 2.16.84 0.1.232821.3.579.2.593 1950 Unknown [id number] 2.16.84 0.1.778149.3.579.2.593 1950 Unknown [id number] 2.16.84 0.1.863340.3.579.2.593 1950 Unknown [id number] 2.16.84 0.1.551997.3.579.2. 1950 Unknown [id number] 2.16.84 0.1.828711.3.579.2.593 1950 Unknown [id number] 2.16.84 0.1.134573.3.579.2.593 1950 Unknown [id number] 2.16.84 0.1.470683.3.579.2.593 1948 Unknown [id number] 2.16.84 0.1.054774.3.579.2.593 1950 Unknown [id number] 2.16.84 0.1.368425.3.579.2.593 1950 Unknown [id number] 2.16.84 0.1.850491.3.579.2.593 1950 Unknown [id number] 2.16.84 0.1.483731.3.579.2.593 1948 Unknown [id number] 2.16.84 0.1.588574.3.579.2.593 1948 Unknown [id number] 2.16.84 0.1.354202.3.579.2.593 1948 Unknown [id number] 2.16.84 0.1.155415.3.579.2.593 1948 Unknown [id number] 2.16.84 0.1.930542.3.579.2.593 1948 Unknown [id number] 2.16.84 0.1.321457.3.579.2.593 1950 Unknown [id number] 2.16.84 0.1.799620.3.579.2.593 Medicare [id number] Unknown Progress note 12-15-2022 Note Date & [...] She will be (more content not included)... [facility] Progress note 12-15-2022 Note Date & Type Note Facility 12-15-2022 Note Review of Systems Cardiovascular: Positive for leg swelling. Respiratory: Positive for shortness of breath. Skin: Positive for color change. Neurological: Positive for headaches. All other systems reviewed and are negative. [facility] Clinical Note 07-25-2022 Note Date & Type [...] by: VISHNU MARIE Date: 2022-07-25 13:25 [facility] Clinical Note 05-11-2022 Note Date & Type [...] by: VISHNU MARIE Date: 2022-05-11 12:51 [facility] Clinical Note 02-14-2022 Note Date & Type Note Facility 02-14-2022 Note PROCEDURE: XR KNEE L T 4V or > COMPARISON: None. HISTORY: Osteoarthritis FINDINGS: BONES:No fracture, acute abnormality, or significant arthropathy. SOFT TISSUES:Negative. No visible soft tissue swelling. EFFUSION:Moderate suprapatellar joint effusion OTHER: Negative. IMPRESSION: Moderate joint effusion Electronically authenticated by: GODWIN BECK Date: 2022-02-14 17:30 [facility] Summary Purpose Family History No Family History Records FoundNo Family History Records FoundNo Family History Records Found Advance Directives No Advanced Directives Records FoundNo Advanced Directives Records FoundNo Advanced Directives Records Found Additional Source Comments INFORMATION SOURCE (unrecogn ized section and content) DATE CREATED AUTHOR 11/24/2018 [facility] DATE CREATED AUTHOR AUTHOR'S ORGANIZ ATION 12/19/2022 [facility] DATE CREATED AUTHOR AUTHOR'S ORGANIZ ATION 01/18/2023 [facility] FOR RECORDS PERTAINING TO PATIENTS WHO ARE [...] BE BASED ON THE PRIMARY CLINICAL RECORDS. [employer] [facility]. provides no warranty or guarantee of the accuracy or completeness of information in this document.
== END 2023-10-27 12:46 | disposition home or self-care (01) ==
LOC: US 12:45
PROVIDERS: PCP Family Medicine; Visit Provider Family Medicine
DX: N39.0 Urinary tract infection, site not specified (principal)
CPT/HCPCS: 76770

== ENCOUNTER 2023-12-27 08:39 | Outpatient (OUT) | payer MEDICARE, SELFPAY ==
--- OUTSIDE RECORDS SUMMARY | 2023-12-27 08:52 | XMS_ITS | CCD ---
Author Organization [facility] Care Team Providers Care Tentmaker Name Role Phone PHYSICIAN, DEFAULT Admitting Unavailable [...] Unavailable HOY ., DR BLANKENSHIP Admmilton Unavailable KIRAN, DR GODWIN Cardona Consulting Unavailable HOY ., DR BLANKENSHIP Consulting Unavailable HOY ., DR BLANKENSHIP Attending Unavailable HOY ., DR BLANKENSHIP Primary Care Unavailable HOY ., DR BLANKENSHIP Admitting Unavailable ZIEBER, DR VISHNU Erazo Consulting Unavailable CHRISTIANO MORALES Consulting Unavailable HOY ., DR BLANKENSHIP Admitting [...] Unavailable LEONEL ., APRIL Admitting Unavailable LEONEL .APRIL Attending Unavailable HOY ., DR BLANKENSHIP Primary Care Unavailable ZIEBER, DR VISHNU Erazo Consulting Unavailable MATILDA ., DR STRATTON Consulting Unavailable GONZALEZ PATEL Consulting Unavailable LEONEL ., APRIL Consulting Unavailable HOY ., DR BLANKENSHIP Attending Unavailable HOY ., DR BLANKENSHIP Consulting Unavailable HOY ., DR BLANKENSHIP Primary Care Unavailable HOY ., DR BLANKENSHIP Admitting Unavailable ZIEBER, DR VISHNU Erazo Consulting Unavailable PAY ., DR JACINTO Consulting Unavailable JUMMA, KYLE Consulting Unavailable BOYD, VANESSA Consulting Unavailcyndy ELAINE, RAVEN Consulting Unavailable NATALIIA TATE Consulting Unavailable HOY ., DR BLANKENSHIP Admitting [...] BLANKENSHIP Admitting Unavailable HOY ., DR BLANKENSHIP Admmilton Unavailable [...] Unavailable ZIEBER, DR VISHNU Erazo Consulting Unavailable LEONEL ., APRIL Consulting Unavailable LEONEL ., APRIL Admitting Unavailable LEONEL ., APRIL Attending Unavailable DONNA ., DR BLANKENSHIP Primary Care Unavailable DONNA ., DR BLANKENSHIP Admitting Unavailable DONNA ., DR BLANKENSHIP Consulting Unavailable DONNA ., DR BLANKENSHIP Attending Unavailable DONNA ., DR BLANKENSHIP Primary Care Unavailable Allergies Allergy Classification Reported Allergen(s) Allergy Type Date of Onset Reaction(s) Facility (3 sources) Morphine; 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: [MORPHINE] Drug Allergy 7 [facility] Repository (3 sources) NSAIDs; 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: [NSAIDS (NON-STEROIDAL ANTI-INFLAMMATORY DRUG)] Drug allergy (disorder) 9 [facility] Repository (1 source) Penicillin Drug Allergy 9 [facility] Repository (1 source) predniSONE Drug Allergy 9 [facility] Repository (2 sources) Iodinated Contrast- Oral and IV Dye Drug allergy (disorder) 5 [facility] Repository (2 sources) Penicillins; 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: [PENICILLINS] Propensity to adverse reactions to drug (disorder) 5 [facility] Repository (1 source) IODINATED CONTRAST MEDIA; 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: [IODINATED CONTRAST MEDIA] Propensity to adverse reactions to drug (disorder) 3 [facility] Repository (1 source) levoFLOXacin Drug Allergy 3 [facility] Repository (1 source) meloxicam Drug Allergy 3 [facility] Problems Active Problems Problem [...] Onset: 01-17-2023 Chronic Other aftercare (2 sources) 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 B1, Whole Blood 118.1 nmol/L Normal 66.5-200.0 [facility] Comment on above: Performed By: #### C BC #### [facility] [address] [place] [address] Dr. Ekta Funk BNPon 01-10-2023 Natriuretic peptide B (Bld) [Mass/Vol] 980.0 pg/mL Critically high <=900.0 [facility] Comment on above: Performed By: #### C VDTBH #### [facility] [address] [place] [address] Dr. Ekta Funk CBC AUTO DIFFon 01-10-2023 BASO # 0.1 103/ul Normal 0.0-0.1 [facility] Comment on above: Performed By: #### C MP #### [facility] [address] [place] [address] Dr. Ekta Funk Basophils/100 WBC (Bld) 1.0 % Normal 0.2-2.0 [facility] Comment on above: Performed By: #### C MP #### [facility] [address] [place] [address] Dr. Ekta Funk EO # 0.4 103/ul Normal 0.0-0.7 [facility] Comment on above: Performed By: #### C MP #### [facility] [address] [place] [address] Dr. Ekta Funk Eosinophils/100 WBC (Bld) 3.7 % Normal 0.9-7.0 [facility] Comment on above: Performed By: #### C MP #### [facility] [address] [place] [address] Dr. Ekta Funk Erythrocyte distribution width (RBC) [Ratio] 13.2 % Normal 11.0-15.0 [facility] Comment on above: Performed By: #### C MP #### [facility] [address] [place] [address] Dr. Ekta Funk Hematocrit (Bld) [Volume fraction] 35.1 % Critically low 36.0-48.0 [facility] Comment on above: Performed By: #### C MP #### [facility] [address] [place] [address] Dr. Ekta Funk Hemoglobin (Bld) [Mass/Vol] 11.3 g/dL Critically low 12.0-16.0 [facility] Comment on above: Performed By: #### C MP #### [facility] [address] [place] [address] Dr. Ekta Funk IG # 0.04 10e3/ul Critically high 0.00-0.03 [facility] Comment on above: Performed By: #### C MP #### [facility] [address] [place] [address] Dr. Ekta Funk IG % 0.4 % Normal 0.0-0.5 [facility] Comment on above: Performed By: #### C MP #### [facility] [address] [place] [address] Dr. Ekta Funk LYMPH # 2.0 103/ul Normal 1.2-3.8 [facility] Comment on above: Performed By: #### C MP #### [facility] [address] [place] [address] Dr. Ekta Funk Lymphocytes/100 WBC (Bld) 20.8 % Normal 20.5-60.0 [facility] Comment on above: Performed By: #### C MP #### [facility] [address] [place] [address] Dr. Ekta Funk MANUAL DIFF REQ NO Normal [facility] Comment on above: Performed By: #### C MP #### [facility] [address] [place] [address] Dr. Ekta Funk MCH (RBC) [Entitic mass] 32.3 pg Normal 26.7-34.0 [facility] Comment on above: Performed By: #### C MP #### [facility] [address] [address] [address] Ekta Funk MCHC (RBC) [Mass/Vol] 32.2 g/dL Normal 29.9-35.2 [facility] Comment on above: Performed By: #### C MP #### [facility] [address] [address] [address] Ekta Funk MCV (RBC) [Entitic vol] 100.3 fL Critically high 81.0-99.0 [facility] Comment on above: Performed By: #### C MP #### [facility] [address] [place] [address] Dr. Ekta Funk MONO # 0.8 103/ul Normal 0.3-0.8 [facility] Comment on above: Performed By: #### C MP #### [facility] [address] [place] [address] Dr. Ekta Funk Monocytes/100 WBC (Bld) 7.9 % Normal 1.7-12.0 [facility] Comment on above: Performed By: #### C MP #### [facility] [address] [place] [address] Dr. Ekta Funk NEUT # 6.4 103/ul Normal 1.4-6.5 [facility] Comment on above: Performed By: #### C MP #### [facility] [address] [place] [address] Dr. Ekta Funk Neutrophils/100 WBC (Bld) 66.2 % Normal 43.0-75.0 [facility] Comment on above: Performed By: #### C MP #### [facility] [address] [place] [address] Dr. Ekta Funk Platelet mean volume (Bld) [Entitic vol] 9.6 fL Normal 9.5-13.5 [facility] Comment on above: Performed By: #### C MP #### [facility] [address] [place] [address] Dr. Ekta Funk PLT 255 103/ul Normal 150-450 [facility] Comment on above: Performed By: #### C MP #### [facility] [address] [address] [address] Ekta Funk RBC 3.50 106/ul Critically low 4.20-5.40 [facility] Comment on above: Performed By: #### C MP #### [facility] [address] [address] [address] Ekta Funk WBC 9.7 103/ul Normal 4.0-11.0 [facility] Comment on above: Performed By: #### C MP #### [facility] [address] [place] [address] Dr. Ekta Funk CRPon 01-10-2023 CRP [Mass/Vol] mg/L Normal <=1.[address] [facility] Comment on above: Performed By: #### C BC #### [facility] [address] [place] [address] Dr. Ekta Funk FREE THYROXINE INDEX T7on FTI 2.62 Normal 1.30-4.50 [facility] Comment on above: Performed By: #### C BC #### [facility] [address] [place] [address] Dr. Ekta Funk T3U 32.0 % Normal 30.0-39.0 [facility] Comment on above: Performed By: #### C BC #### [facility] [address] [place] [address] Dr. Ekta Funk T4 [Mass/Vol] 8.20 ug/dL Normal 4.80-13.90 [facility] Comment on above: Performed By: #### C BC #### [facility] [address] [place] [address] Dr. Etka Funk IRONon 01-10-2023 Iron [Mass/Vol] 61.0 ug/dL Normal 50.0-170.0 [facility] Comment on above: Performed By: #### B 12FOL, VITAD, IRON #### [facility] [address] [place] [address] Dr. Ekta Funk PROF 14(COMP METB)on 023 Albumin [Mass/Vol] 2.9 g/dL Critically low 3.4-5.0 [facility] Comment on above: Performed By: #### C VDTBH #### [facility] [address] [place] [address] Dr. Ekta Funk Albumin/Globulin [Mass ratio] 0.6 {ratio} Normal [facility] Comment on above: Performed By: #### C VDTBH #### [facility] [address] [place] [address] Dr. Ekta Funk ALP [Catalytic activity/Vol] 101 U/L Normal 46-116 [facility] Comment on above: Performed By: #### C VDTBH #### [facility] [address] [place] [address] Dr. Ekta Funk ALT [Catalytic activity/Vol] 16 U/L Normal 14-59 [facility] Comment on above: Performed By: #### C VDTBH #### [facility] [address] [place] [address] Dr. Ekta Funk Anion gap [Moles/Vol] 14.6 mmol/L Normal [facility] Comment on above: Performed By: #### C VDTBH #### [facility] [address] [place] [address] Dr. Ekta Funk AST [Catalytic activity/Vol] 15 U/L Normal 15-37 [facility] Comment on above: Performed By: #### C VDTBH #### [facility] [address] [place] [address] Dr. Ekta Funk Bilirubin [Mass/Vol] 0.4 mg/dL Normal 0.2-1.0 [facility] Comment on above: Performed By: #### C VDTBH #### [facility] [address] [place] [address] Dr. Ekta Funk Calcium [Mass/Vol] 9.2 mg/dL Normal 8.5-10.1 [facility] Comment on above: Performed By: #### C VDTBH #### [facility] [address] [place] [address] Dr. Ekta Funk Chloride [Moles/Vol] 107 mmol/L Normal 98-107 [facility] Comment on above: Performed By: #### C VDTBH #### [facility] [address] [address] [address] Ekta Funk CO2 [Moles/Vol] 24.4 mmol/L Normal 21.0-32.0 [facility] Comment on above: Performed By: #### C VDTBH #### [facility] [address] [place] [address] Dr. Ekta Funk Creatinine [Mass/Vol] 2.02 mg/dL Critically high 0.55-1.02 [facility] Comment on above: Performed By: #### C VDTBH #### [facility] [address] [place] [address] Dr. Ekta Funk EGFR-AF CONGOLESE 29 mL/min/1.73m2 Critically low >=60 [facility] Comment on above: Performed By: #### C VDTBH #### [facility] [address] [place] [address] Dr. Ekta Funk EGFR-NON AF CONGOLESE 24 mL/min/1.73m2 Critically low >=60 [facility] Comment on above: Performed By: #### C VDTBH #### [facility] [address] [place] [address] Dr. Ekta Funk Globulin (S) [Mass/Vol] 4.5 g/dL Normal [facility] Comment on above: Performed By: #### C VDTBH #### [facility] [address] [place] [address] Dr. Ekta Funk Glucose [Mass/Vol] 103 mg/dL Normal 74-106 [facility] Comment on above: Performed By: #### C VDTBH #### [facility] [address] [place] [address] Dr. Ekta Funk Potassium [Moles/Vol] 5.0 mmol/L Normal 3.5-5.1 [facility] Comment on above: Performed By: #### C VDTBH #### [facility] [address] [place] [address] Dr. Ekta Funk Protein [Mass/Vol] 7.4 g/dL Normal 6.4-8.2 [facility] Comment on above: Performed By: #### C VDTBH #### [facility] [address] [place] [address] Dr. Ekta Funk Sodium [Moles/Vol] 141 mmol/L Normal 136-145 [facility] Comment on above: Performed By: #### C VDTBH #### [facility] [address] [place] [address] Dr. Ekta Funk Urea nitrogen [Mass/Vol] 23.0 mg/dL Critically high 7.0-18.0 [facility] Comment on above: Performed By: #### C VDTBH #### [facility] [address] [place] [address] Dr. Ekta Funk Urea nitrogen/Creatinine [Mass ratio] 11.4 mg/mg Normal [facility] Comment on above: Performed By: #### C VDTBH #### [facility] [address] [place] [address] Dr. Ekta Funk TSHon 01-10-2023 TSH 1.793 uIU/mL Normal 0.358-3.740 [facility] Comment on above: Performed By: #### C VDTBH #### [facility] [address] [place] [address] Dr. Ekta Funk VIT B12 AND FOLATEon 023 Cobalamin (Vitamin B12) [Mass/Vol] 175.0 pg/mL Critically low 193.0-986.0 [facility] Comment on above: Performed By: #### B 12FOL, VITAD, IRON #### [facility] [address] [place] [address] Dr. Ekta Funk FOLATE 10.30 ng/mL Normal 8.60-58.90 [facility] Comment on above: Performed By: #### B 12FOL, VITAD, IRON #### [facility] [address] [place] [address] Dr. Ekta Funk VITAMIN D 25 OHon 01-10-2023 VIT D 25-OH 24.0 ng/mL Normal [facility] Comment on above: Performed By: #### B 12FOL, VITAD, IRON #### [facility] [address] [place], [place] [address] Dr. Ekta Funk VIT D RANGES SEE BELOW Normal [facility] Comment on above: Result Comment: <20 ng/mL Vit D deficient 20 - <30 ng/mL Vit D insufficient 30 - 100 ng/mL Vit D sufficient >100 ng/mL Potential Toxicity Performed By: #### B 12FOL, VITAD, IRON #### [facility] [address] [place], [place] [address] Dr. Ekta Funk Office Visiton 12-15-2022 Follow-up visit [id number] Sheila Mac 1950 F Date Provider Department Center 12/15/2022 [id number] RIVERA [facility] No family history on file Level of Service:23521 ME OFFICE/OUTPATIENT ESTABLISHED MOD MDM 30-39 MIN Reason for Visit and Comments: Follow-up [791695] - Is here f/u stress test pt states she had Bruises all over both legs symptoms stated a week ago also stated legs are swollen and burning Normal [facility] NM STRESS/REST MULTIon 12-05 NM STRESS/REST MULTI Patient: SHEILA MAC Exam Date: 12/05/2022 : 1950 Gender:F Ordering : DR KRZYSZTOF HARP . Admission #: [id number] Family : Order #: [id number] CLICK HERE TO VIEW EXAM RADIOLOGY REPORT [...] study was normal per attending physician Dr. Walker . For more details please see separate [...] Marie M.D. on 12/06/2022 at 07:26 Normal [facility] ECHOCARDIO M/2D COMPLETEon 0 11-27-2022 ECHOCARDIO M/2D COMPLETE Patient: SHEILA MAC Exam Date: 11/27/2022 : 1950 Gender:F Ordering : DR KRZYSZTOF HARP . Admission #: [id number] Family : Order #: [id number] CLICK HERE TO VIEW EXAM ECHOCARDIOGRAM REPORT [...] M.D. on 11/27/2022 at 14:39 Normal [facility] CBC AUTO DIFFon 11-26-2022 BASO # 0.0 103/ul Normal 0.0-0.1 [facility] Comment on above: Performed By: #### I NSULIN #### [facility] [address] [address] [address] Ekta Funk Basophils/100 WBC (Bld) 0.6 % Normal 0.2-2.0 [facility] Comment on above: Performed By: #### I NSULIN #### [facility] [address] [address] [address] Ekta Funk EO # 0.3 103/ul Normal 0.0-0.7 [facility] Comment on above: Performed By: #### I NSULIN #### [facility] [address] [address] [address] Ekta Funk Eosinophils/100 WBC (Bld) 4.8 % Normal 0.9-7.0 [facility] Comment on above: Performed By: #### I NSULIN #### [facility] [address] [address] [address] Ekta Funk Erythrocyte distribution width (RBC) [Ratio] 13.3 % Normal 11.0-15.0 [facility] Comment on above: Performed By: #### I NSULIN #### [facility] [address] [address] [address] Ekta Funk Hematocrit (Bld) [Volume fraction] 29.1 % Critically low 36.0-48.0 [facility] Comment on above: Performed By: #### I NSULIN #### [facility] [address] [address] [address] Ekta Funk Hemoglobin (Bld) [Mass/Vol] 9.5 g/dL Critically low 12.0-16.0 [facility] Comment on above: Performed By: #### I NSULIN #### [facility] [address] [place] [address] Dr. Ekta Funk IG # 0.07 10e3/ul Critically high 0.00-0.03 [facility] Comment on above: Performed By: #### I NSULIN #### [facility] [address] [place] [address] Dr. Ekta Funk IG % 1.0 % Critically high 0.0-0.5 [facility] Comment on above: Performed By: #### I NSULIN #### [facility] [address] [place] [address] Dr. Ekta Funk LYMPH # 1.2 103/ul Normal 1.2-3.8 [facility] Comment on above: Performed By: #### I NSULIN #### [facility] [address] [place] [address] Dr. Ekta Funk Lymphocytes/100 WBC (Bld) 17.2 % Critically low 20.5-60.0 [facility] Comment on above: Performed By: #### I NSULIN #### [facility] [address] [place] [address] Dr. Ekta Funk MANUAL DIFF REQ NO Normal [facility] Comment on above: Performed By: #### I NSULIN #### [facility] [address] [place] [address] Dr. Ekta Funk MCH (RBC) [Entitic mass] 31.7 pg Normal 26.7-34.0 [facility] Comment on above: Performed By: #### I NSULIN #### [facility] [address] [place] [address] Dr. Ekta Funk MCHC (RBC) [Mass/Vol] 32.6 g/dL Normal 29.9-35.2 [facility] Comment on above: Performed By: #### I NSULIN #### [facility] [address] [place] [address] Dr. Ekta Funk MCV (RBC) [Entitic vol] 97.0 fL Normal 81.0-99.0 [facility] Comment on above: Performed By: #### I NSULIN #### [facility] [address] [place] [address] Dr. Ekta Funk MONO # 0.8 103/ul Normal 0.3-0.8 [facility] Comment on above: Performed By: #### I NSULIN #### [facility] [address] [place] [address] Dr. Ekta Funk Monocytes/100 WBC (Bld) 11.1 % Normal 1.7-12.0 [facility] Comment on above: Performed By: #### I NSULIN #### [facility] [address] [place] [address] Dr. Ekta Funk NEUT # 4.5 103/ul Normal 1.4-6.5 [facility] Comment on above: Performed By: #### I NSULIN #### [facility] [address] [place] [address] Dr. Ekta Funk Neutrophils/100 WBC (Bld) 65.3 % Normal 43.0-75.0 [facility] Comment on above: Performed By: #### I NSULIN #### [facility] [address] [place] [address] Dr. Ekta Funk Platelet mean volume (Bld) [Entitic vol] 9.4 fL Critically low 9.5-13.5 [facility] Comment on above: Performed By: #### I NSULIN #### [facility] [address] [place] [address] Dr. Ekta Funk PLT 263 103/ul Normal 150-450 [facility] Comment on above: Performed By: #### I NSULIN #### [facility] [address] [place] [address] Dr. Ekta Funk RBC 3.00 106/ul Critically low 4.20-5.40 [facility] Comment on above: Performed By: #### I NSULIN #### [facility] [address] [place] [address] Dr. Ekta Funk WBC 6.9 103/ul Normal 4.0-11.0 [facility] Comment on above: Performed By: #### I NSULIN #### [facility] [address] [address] [address] Ekta Funk PROF 14(COMP METB)on 023 Albumin [Mass/Vol] 2.2 g/dL Critically low 3.4-5.0 [facility] Comment on above: Performed By: #### C MP #### [facility] [address] [address] [address] Ekta Funk Albumin/Globulin [Mass ratio] 0.6 {ratio} Normal [facility] Comment on above: Performed By: #### C MP #### [facility] [address] [place] [address] Dr. Ekta Funk ALP [Catalytic activity/Vol] 82 U/L Normal 46-116 [facility] Comment on above: Performed By: #### C MP #### [facility] [address] [place] [address] Dr. Ekta Funk ALT [Catalytic activity/Vol] 13 U/L Critically low 14-59 [facility] Comment on above: Performed By: #### C MP #### [facility] [address] [address] [address] Ekta Funk Anion gap [Moles/Vol] 14.0 mmol/L Normal [facility] Comment on above: Performed By: #### C MP #### [facility] [address] [place] [address] Dr. Etka Funk AST [Catalytic activity/Vol] 18 U/L Normal 15-37 [facility] Comment on above: Performed By: #### C MP #### [facility] [address] [address] [address] Ekta Funk Bilirubin [Mass/Vol] 0.4 mg/dL Normal 0.2-1.0 [facility] Comment on above: Performed By: #### C MP #### [facility] [address] [place] [address] Dr. Ekta Funk Calcium [Mass/Vol] 8.6 mg/dL Normal 8.5-10.1 [facility] Comment on above: Performed By: #### C MP #### [facility] [address] [address] [address] Ekta Funk Chloride [Moles/Vol] 108 mmol/L Critically high 98-107 [facility] Comment on above: Performed By: #### C MP #### [facility] [address] [address] [address] Ekta Funk CO2 [Moles/Vol] 19.6 mmol/L Critically low 21.0-32.0 [facility] Comment on above: Performed By: #### C MP #### [facility] [address] [address] [address] Ekta Funk Creatinine [Mass/Vol] 1.70 mg/dL Critically high 0.55-1.02 [facility] Comment on above: Performed By: #### C MP #### [facility] [address] [address] [address] Ekta Funk EGFR-AF CONGOLESE 36 mL/min/1.73m2 Critically low >=60 [facility] Comment on above: Performed By: #### C MP #### [facility] [address] [address] [address] Ekta Funk EGFR-NON AF CONGOLESE 29 mL/min/1.73m2 Critically low >=60 [facility] Comment on above: Performed By: #### C MP #### [facility] [address] [address] [address] Ekta Funk Globulin (S) [Mass/Vol] 3.6 g/dL Normal [facility] Comment on above: Performed By: #### C MP #### [facility] [address] [address] [address] Ekta Funk Glucose [Mass/Vol] 103 mg/dL Normal 74-106 [facility] Comment on above: Performed By: #### C MP #### [facility] [address] [address] [address] Ekta Funk Potassium [Moles/Vol] 4.6 mmol/L Normal 3.5-5.1 [facility] Comment on above: Performed By: #### C MP #### [facility] [address] [place] [address] Dr. Ekta Funk Protein [Mass/Vol] 5.8 g/dL Critically low 6.4-8.2 Th [facility] Comment on above: Performed By: #### C MP #### [facility] [address] [place] [address] Dr. Ekta Funk Sodium [Moles/Vol] 137 mmol/L Normal 136-145 [facility] Comment on above: Performed By: #### C MP #### [facility] [address] [place] [address] Dr. Ekta Funk Urea nitrogen [Mass/Vol] 26.0 mg/dL Critically high 7.0-18.0 [facility] Comment on above: Performed By: #### C MP #### [facility] [address] [place] [address] Dr. Ekta Funk Urea nitrogen/Creatinine [Mass ratio] 15.3 mg/mg Normal [facility] Comment on above: Performed By: #### C MP #### [facility] [address] [place] [address] Dr. Ekta Funk CBC AUTO DIFFon 11-25-2022 BASO # 0.1 103/ul Normal 0.0-0.1 [facility] Comment on above: Performed By: #### C BC #### [facility] [address] [place] [address] Dr. Ekta Funk Basophils/100 WBC (Bld) 0.7 % Normal 0.2-2.0 [facility] Comment on above: Performed By: #### C BC #### [facility] [address] [place] [address] Dr. Ekta Funk EO # 0.3 103/ul Normal 0.0-0.7 [facility] Comment on above: Performed By: #### C BC #### [facility] [address] [place] [address] Dr. Ekta Funk Eosinophils/100 WBC (Bld) 3.4 % Normal 0.9-7.0 [facility] Comment on above: Performed By: #### C BC #### [facility] [address] [address] [address] Ekta Funk Erythrocyte distribution width (RBC) [Ratio] 13.6 % Normal 11.0-15.0 [facility] Comment on above: Performed By: #### C BC #### [facility] [address] [place] [address] Dr. Ekta Funk Hematocrit (Bld) [Volume fraction] 32.1 % Critically low 36.0-48.0 [facility] Comment on above: Performed By: #### C BC #### [facility] [address] [place] [address] Dr. Ekta Funk Hemoglobin (Bld) [Mass/Vol] 10.3 g/dL Critically low 12.0-16.0 [facility] Comment on above: Performed By: #### C BC #### [facility] [address] [place] [address] Dr. Ekta Funk IG # 0.08 10e3/ul Critically high 0.00-0.03 [facility] Comment on above: Performed By: #### C BC #### [facility] [address] [place] [address] Dr. Ekta Funk IG % 0.9 % Critically high 0.0-0.5 [facility] Comment on above: Performed By: #### C BC #### [facility] [address] [place] [address] Dr. Ekta Funk LYMPH # 0.9 103/ul Critically low 1.2-3.[address] [facility] Comment on above: Performed By: #### C BC #### [facility] [address] [place] [address] Dr. Ekta Funk Lymphocytes/100 WBC (Bld) 10.7 % Critically low 20.5-60.0 [facility] Comment on above: Performed By: #### C BC #### [facility] [address] [place] [address] Dr. Ekta Funk MANUAL DIFF REQ NO Normal [facility] Comment on above: Performed By: #### C BC #### [facility] [address] [place] [address] Dr. Ekta Funk MCH (RBC) [Entitic mass] 32.2 pg Normal 26.7-34.0 [facility] Comment on above: Performed By: #### C BC #### [facility] [address] [place] [address] Dr. Ekta Funk MCHC (RBC) [Mass/Vol] 32.1 g/dL Normal 29.9-35.2 [facility] Comment on above: Performed By: #### C BC #### [facility] [address] [place] [address] Dr. Ekta Funk MCV (RBC) [Entitic vol] 100.3 fL Critically high 81.0-99.0 [facility] Comment on above: Performed By: #### C BC #### [facility] [address] [place] [address] Dr. Ekta Funk MONO # 0.9 103/ul Critically high 0.3-0.8 [facility] Comment on above: Performed By: #### C BC #### [facility] [address] [place] [address] Dr. Ekta Funk Monocytes/100 WBC (Bld) 9.9 % Normal 1.7-12.0 [facility] Comment on above: Performed By: #### C BC #### [facility] [address] [place] [address] Dr. Ekta Funk NEUT # 6.4 103/ul Normal 1.4-6.5 [facility] Comment on above: Performed By: #### C BC #### [facility] [address] [place] [address] Dr. Ekta Funk Neutrophils/100 WBC (Bld) 74.4 % Normal 43.0-75.0 [facility] Comment on above: Performed By: #### C BC #### [facility] [address] [place] [address] Dr. Ekta Funk Platelet mean volume (Bld) [Entitic vol] 9.5 fL Normal 9.5-13.5 [facility] Comment on above: Performed By: #### C BC #### [facility] [address] [address] [address] Ekta Funk PLT 267 103/ul Normal 150-450 [facility] Comment on above: Performed By: #### C BC #### [facility] [address] [place] [address] Dr. Ekta Funk RBC 3.20 106/ul Critically low 4.20-5.40 [facility] Comment on above: Performed By: #### C BC #### [facility] [address] [place] [address] Dr. Ekta Funk WBC 8.6 103/ul Normal 4.0-11.0 [facility] Comment on above: Performed By: #### C BC #### [facility] [address] [place] [address] Dr. Ekta Funk BASO # 0.1 103/ul Normal 0.0-0.1 [facility] Comment on above: Performed By: #### C MP #### [facility] [address] [place] [address] Dr. Ekta Funk Basophils/100 WBC (Bld) 0.7 % Normal 0.2-2.0 [facility] Comment on above: Performed By: #### C MP #### [facility] [address] [place] [address] Dr. Ekta Funk EO # 0.3 103/ul Normal 0.0-0.7 [facility] Comment on above: Performed By: #### C MP #### [facility] [address] [place] [address] Dr. Ekta Funk Eosinophils/100 WBC (Bld) 3.9 % Normal 0.9-7.0 [facility] Comment on above: Performed By: #### C MP #### [facility] [address] [place] [address] Dr. Etka Funk Erythrocyte distribution width (RBC) [Ratio] 13.2 % Normal 11.0-15.0 [facility] Comment on above: Performed By: #### C MP #### [facility] [address] [place], [place] [id number] Dr. Ekta Funk Hematocrit (Bld) [Volume fraction] 28.0 % Critically low 36.0-48.0 [facility] Comment on above: Performed By: #### C MP #### [facility] [address] [place] [address] Dr. Ekta Funk Hemoglobin (Bld) [Mass/Vol] 9.3 g/dL Critically low 12.0-16.0 [facility] Comment on above: Performed By: #### C MP #### [facility] [address] [place] [address] Dr. Ekta Funk IG # 0.08 10e3/ul Critically high 0.00-0.03 [facility] Comment on above: Performed By: #### C MP #### [facility] [address] [place] [address] Dr. Ekta Funk IG % 1.1 % Critically high 0.0-0.5 [facility] Comment on above: Performed By: #### C MP #### [facility] [address] [place] [address] Dr. Ekta Funk LYMPH # 0.9 103/ul Critically low 1.2-3.[address] [facility] Comment on above: Performed By: #### C MP #### [facility] [address] [place] [address] Dr. Ekta Funk Lymphocytes/100 WBC (Bld) 12.1 % Critically low 20.5-60.0 [facility] Comment on above: Performed By: #### C MP #### [facility] [address] [place] [address] Dr. Ekta Funk MANUAL DIFF REQ NO Normal [facility] Comment on above: Performed By: #### C MP #### [facility] [address] [place] [address] Dr. Ekta Funk MCH (RBC) [Entitic mass] 32.0 pg Normal 26.7-34.0 [facility] Comment on above: Performed By: #### C MP #### [facility] [address] [place] [address] Dr. Ekta Funk MCHC (RBC) [Mass/Vol] 33.2 g/dL Normal 29.9-35.2 [facility] Comment on above: Performed By: #### C MP #### [facility] [address] [place] [address] Dr. Ekta Funk MCV (RBC) [Entitic vol] 96.2 fL Normal 81.0-99.0 [facility] Comment on above: Performed By: #### C MP #### [facility] [address] [place] [address] Dr. Ekta Funk MONO # 0.7 103/ul Normal 0.3-0.8 [facility] Comment on above: Performed By: #### C MP #### [facility] [address] [place] [address] Dr. Ekta Funk Monocytes/100 WBC (Bld) 9.8 % Normal 1.7-12.0 [facility] Comment on above: Performed By: #### C MP #### [facility] [address] [place] [address] Dr. Ekta Funk NEUT # 5.2 103/ul Normal 1.4-6.5 [facility] Comment on above: Performed By: #### C MP #### [facility] [address] [place] [address] Dr. Ekta Funk Neutrophils/100 WBC (Bld) 72.4 % Normal 43.0-75.0 [facility] Comment on above: Performed By: #### C MP #### [facility] [address] [place] [address] Dr. Ekta Funk Platelet mean volume (Bld) [Entitic vol] 9.4 fL Critically low 9.5-13.5 [facility] Comment on above: Performed By: #### C MP #### [facility] [address] [place] [address] Dr. Ekta Funk PLT 250 103/ul Normal 150-450 [facility] Comment on above: Performed By: #### C MP #### [facility] [address] [place] [address] Dr. Ekta Funk RBC 2.91 106/ul Critically low 4.20-5.40 [facility] Comment on above: Performed By: #### C MP #### [facility] [address] [place] [address] Dr. Ekta Funk WBC 7.2 103/ul Normal 4.0-11.0 [facility] Comment on above: Performed By: #### C MP #### [facility] [address] [place] [address] Dr. Ekta Funk PROF 14(COMP METB)on 023 Albumin [Mass/Vol] 2.1 g/dL Critically low 3.4-5.0 [facility] Comment on above: Performed By: #### C MP #### [facility] [address] [place] [address] Dr. Ekta Funk Albumin/Globulin [Mass ratio] 0.6 {ratio} Normal [facility] Comment on above: Performed By: #### C MP #### [facility] [address] [place] [address] Dr. Ekta Funk ALP [Catalytic activity/Vol] 68 U/L Normal 46-116 [facility] Comment on above: Performed By: #### C MP #### [facility] [address] [place] [address] Dr. Ekta Funk ALT [Catalytic activity/Vol] 14 U/L Normal 14-59 [facility] Comment on above: Performed By: #### C MP #### [facility] [address] [place] [address] Dr. Ekta Funk Anion gap [Moles/Vol] 12.9 mmol/L Normal [facility] Comment on above: Performed By: #### C MP #### [facility] [address] [place] [address] Dr. Ekta Funk AST [Catalytic activity/Vol] 14 U/L Critically low 15-37 [facility] Comment on above: Performed By: #### C MP #### [facility] [address] [place] [address] Dr. Ekta Funk Bilirubin [Mass/Vol] 0.3 mg/dL Normal 0.2-1.0 [facility] Comment on above: Performed By: #### C MP #### [facility] [address] [address] [address] Ekta Funk Calcium [Mass/Vol] 8.3 mg/dL Critically low 8.5-10.1 [facility] Comment on above: Performed By: #### C MP #### [facility] [address] [address] [address] Ekta Funk Chloride [Moles/Vol] 109 mmol/L Critically high 98-107 [facility] Comment on above: Performed By: #### C MP #### [facility] [address] [address] [address] Ekta Funk CO2 [Moles/Vol] 19.3 mmol/L Critically low 21.0-32.0 [facility] Comment on above: Performed By: #### C MP #### [facility] [address] [address] [address] Ekta Funk Creatinine [Mass/Vol] 1.54 mg/dL Critically high 0.55-1.02 [facility] Comment on above: Performed By: #### C MP #### [facility] [address] [place] [address] Dr. Ekta Funk EGFR-AF CONGOLESE 40 mL/min/1.73m2 Critically low >=60 [facility] Comment on above: Performed By: #### C MP #### [facility] [address] [address] [address] Ekta Funk EGFR-NON AF CONGOLESE 33 mL/min/1.73m2 Critically low >=60 [facility] Comment on above: Performed By: #### C MP #### [facility] [address] [address] [address] Ekta Funk Globulin (S) [Mass/Vol] 3.7 g/dL Normal [facility] Comment on above: Performed By: #### C MP #### [facility] [address] [address] [address] Ekta Funk Glucose [Mass/Vol] 117 mg/dL Critically high 74-106 [facility] Comment on above: Performed By: #### C MP #### [facility] [address] [address] [address] Ekta Funk Potassium [Moles/Vol] 4.2 mmol/L Normal 3.5-5.1 [facility] Comment on above: Performed By: #### C MP #### [facility] [address] [address] [address] Ekta Funk Protein [Mass/Vol] 5.8 g/dL Critically low 6.4-8.2 [facility] Comment on above: Performed By: #### C MP #### [facility] [address] [address] [address] Ekta Funk Sodium [Moles/Vol] 137 mmol/L Normal 136-145 [facility] Comment on above: Performed By: #### C MP #### [facility] [address] [address] [address] Ekta Funk Urea nitrogen [Mass/Vol] 27.0 mg/dL Critically high 7.0-18.0 [facility] Comment on above: Performed By: #### C MP #### [facility] [address] [address] [address] Ekta Funk Urea nitrogen/Creatinine [Mass ratio] 17.5 mg/mg Normal [facility] Comment on above: Performed By: #### C MP #### [facility] [address] [address] [address] Ekta Funk AMMONIAon 11-24-2022 Ammonia (P) [Moles/Vol] 13 umol/L Normal 11-32 [facility] Comment on above: Performed By: #### C VDTBH #### [facility] [address] [address] [address] Ekta Funk CBC AUTO DIFFon 11-24-2022 BASO # 0.0 103/ul Normal 0.0-0.1 [facility] Comment on above: Performed By: #### C MP #### [facility] [address] [address] [address] Ekta Funk Basophils/100 WBC (Bld) 0.4 % Normal 0.2-2.0 [facility] Comment on above: Performed By: #### C MP #### [facility] [address] [place] [address] Dr. Ekta Funk EO # 0.4 103/ul Normal 0.0-0.7 [facility] Comment on above: Performed By: #### C MP #### [facility] [address] [place] [address] Dr. Ekta Funk Eosinophils/100 WBC (Bld) 3.8 % Normal 0.9-7.0 [facility] Comment on above: Performed By: #### C MP #### [facility] [address] [place] [address] Dr. Ekta Funk Erythrocyte distribution width (RBC) [Ratio] 13.2 % Normal 11.0-15.0 [facility] Comment on above: Performed By: #### C MP #### [facility] [address] [place] [address] Dr. Ekta Funk Hematocrit (Bld) [Volume fraction] 34.0 % Critically low 36.0-48.0 [facility] Comment on above: Performed By: #### C MP #### [facility] [address] [place] [address] Dr. Ekta Funk Hemoglobin (Bld) [Mass/Vol] 11.5 g/dL Critically low 12.0-16.0 [facility] Comment on above: Performed By: #### C MP #### [facility] [address] [place] [address] Dr. Ekta Funk IG # 0.11 10e3/ul Critically high 0.00-0.03 [facility] Comment on above: Performed By: #### C MP #### [facility] [address] [place] [address] Dr. Ekta Funk IG % 1.2 % Critically high 0.0-0.5 [facility] Comment on above: Performed By: #### C MP #### [facility] [address] [place] [address] Dr. Ekta Funk LYMPH # 1.4 103/ul Normal 1.2-3.8 [facility] Comment on above: Performed By: #### C MP #### [facility] [address] [place] [address] Dr. Ekta Funk Lymphocytes/100 WBC (Bld) 14.9 % Critically low 20.5-60.0 [facility] Comment on above: Performed By: #### C MP #### [facility] [address] [place] [address] Dr. Ekta Funk MANUAL DIFF REQ NO Normal [facility] Comment on above: Performed By: #### C MP #### [facility] [address] [place] [address] Dr. Ekta Funk MCH (RBC) [Entitic mass] 32.5 pg Normal 26.7-34.0 [facility] Comment on above: Performed By: #### C MP #### [facility] [address] [place] [address] Dr. Ekta Funk MCHC (RBC) [Mass/Vol] 33.8 g/dL Normal 29.9-35.2 [facility] Comment on above: Performed By: #### C MP #### [facility] [address] [place] [address] Dr. Ekta Funk MCV (RBC) [Entitic vol] 96.0 fL Normal 81.0-99.0 [facility] Comment on above: Performed By: #### C MP #### [facility] [address] [place] [address] Dr. Ekta Funk MONO # 0.9 103/ul Critically high 0.3-0.8 [facility] Comment on above: Performed By: #### C MP #### [facility] [address] [place] [address] Dr. Ekta Funk Monocytes/100 WBC (Bld) 9.7 % Normal 1.7-12.0 [facility] Comment on above: Performed By: #### C MP #### [facility] [address] [place] [address] Dr. Ekta Funk NEUT # 6.4 103/ul Normal 1.4-6.5 [facility] Comment on above: Performed By: #### C MP #### [facility] [address] [address] [address] Ekta Funk Neutrophils/100 WBC (Bld) 70.0 % Normal 43.0-75.0 [facility] Comment on above: Performed By: #### C MP #### [facility] [address] [address] [address] Ekta Funk Platelet mean volume (Bld) [Entitic vol] 9.3 fL Critically low 9.5-13.5 [facility] Comment on above: Performed By: #### C MP #### [facility] [address] [address] [address] Ekta Funk PLT 308 103/ul Normal 150-450 [facility] Comment on above: Performed By: #### C MP #### [facility] [address] [address] [address] Ekta Funk RBC 3.54 106/ul Critically low 4.20-5.40 [facility] Comment on above: Performed By: #### C MP #### [facility] [address] [address] [address] Ekta Funk WBC 9.1 103/ul Normal 4.0-11.0 [facility] Comment on above: Performed By: #### C MP #### [facility] [id number] Ekta Funk CPKon 11-24-2022 CK [Catalytic activity/Vol] 21 U/L Critically low 26-192 [facility] Comment on above: Performed By: #### B 12FOL, VITAD, IRON #### [facility] [id number] Ekta Funk CT STROKE HEAD WOon 11-25-[address] STROKE HEAD WO EXAMINATION: CT STROKE [...] by: VANESSA PARADA Date: 2022-11-24 11:09 Normal [facility] CTA HEAD WO W CONon 11-25-19 23 CTA HEAD WO W CON EXAMINATION: CTA [...] VISHNU MARIE Date: 2022-11-24 12:41 Normal [facility] CULTURE URINEon 11-24-2022 CULTURE URINE Culture Observations : NO GROWTH. Normal [facility] Comment on above: Performed By: #### I NSULIN #### [facility] [address] [place] [address] Dr. Ekta Funk Covid-19 PCR ([facility])on 11-08 SARS-CoV-2 (COVID-19) RNA GANESH+probe Ql (Unsp spec) Not detected Normal NOT DETECTED [facility] Comment on above: Result Comment: [...] for this test is supported by the [facility] [employer] [facility] Director of Health and Human Service's declaration that [...] used). Performed By: #### C VDTBH #### [facility] [address] [place] [address] Dr. Ekta Funk ER URINE PROFILEon 3 Bilirubin Ql (U) Negative Normal NEGATIVE [facility] Comment on above: Performed By: #### C BC #### [facility] [address] [place] [address] Dr. Ekta Funk Clarity (U) CLEAR Normal CLEAR [facility] Comment on above: Performed By: #### C BC #### [facility] [address] [place] [address] Dr. Ekta Funk Color (U) LT. YELLOW Normal YELLOW [facility] Comment on above: Performed By: #### C BC #### [facility] [address] [place] [address] Dr. Ekta COLÓN A micrscopic examination will be performed if indicated. Normal [facility] Comment on above: Performed By: #### C BC #### [facility] [address] [place] [address] Dr. Ekta Funk Glucose Ql (U) Negative Normal NEGATIVE [facility] Comment on above: Performed By: #### C BC #### [facility] [address] [place] [address] Dr. Ekta Funk Hemoglobin Ql (U) Negative Normal NEGATIVE The [facility] Comment on above: Performed By: #### C BC #### [facility] [address] [place] [address] Dr. Ekta Funk Ketones Ql (U) Negative Normal NEGATIVE [facility] Comment on above: Performed By: #### C BC #### [facility] [address] [place] [address] Dr. Ekta Funk LEUKOCYTES Negative Normal NEGATIVE [facility] Comment on above: Performed By: #### C BC #### [facility] [address] [place] [address] Dr. Ekta Funk Nitrite Ql (U) Negative Normal NEGATIVE [facility] Comment on above: Performed By: #### C BC #### [facility] [address] [address] [address] Ekta Funk pH (U) 5.5 [pH] Normal 5-9 [facility] Comment on above: Performed By: #### C BC #### [facility] [address] [address] [address] Ekta Funk SPEC GRAVITY 1.020 Normal 1.005-<=1.025 [facility] Comment on above: Performed By: #### C BC #### [facility] [address] [address] [address] Ekta Funk UA PROTEIN Negative Normal NEGATIVE/ TRACE [facility] Comment on above: Performed By: #### C BC #### [facility] [address] [place] [address] Dr. Ekta Funk UR MICRO IND NOT INDICATED Normal [facility] Comment on above: Performed By: #### C BC #### [facility] [address] [place] [address] Dr. Ekta Funk Urobilinogen Qn (U) 0.2 {Ivan'U}/dL Normal 0.2 - 1. 0 [facility] Comment on above: Performed By: #### C BC #### [facility] [address] [place] [address] Dr. Ekta Funk GLYCOHEMOGLOBIN A1Con 2022 ADA RECOMMENDATION SEE BELOW Normal [facility] Comment on above: Result Comment: ADA RECOMMENDED LIMIT 4.0 - 6.0 ADA THERAPEUTIC TARGET < 7.0 ACTION SUGGESTED > 7.0 Performed By: #### B 12FOL, VITAD, IRON #### [facility] [address] [place] [address] Dr. Ekta Funk Glucose [Mass/Vol] 143 mg/dL Normal [facility] Comment on above: Performed By: #### B 12FOL, VITAD, IRON #### [facility] [address] [place] [address] Dr. Ekta Funk HbA1c (Bld) [Mass fraction] 6.6 % Critically high 4.5-6.2 [facility] Comment on above: Performed By: #### B 12FOL, VITAD, IRON #### [facility] [address] [place] [address] Dr. Ekta Funk LACTATE/LACTIC ACIDon 2022 Lactate [Moles/Vol] 1.6 mmol/L Normal 0.4-2.0 [facility] Comment on above: Performed By: #### C MP #### [facility] [address] [place] [address] Dr. Ekta Funk Lactate [Moles/Vol] 2.1 mmol/L Critically high 0.4-2.0 [facility] Comment on above: Performed By: #### B 12FOL, VITAD, IRON #### [facility] [address] [place] [address] Dr. Ekta Funk LIPASEon 11-24-2022 Lipase [Catalytic activity/Vol] 165.0 U/L Normal 73.0-393.0 [facility] Comment on above: Performed By: #### B 12FOL, VITAD, IRON #### [facility] [address] [place] [address] Dr. Ekta Funk LIPID PROFILEon 11-24-2022 CHOL-HDL RATIO NORM SEE BELOW Normal [facility] Comment on above: Result Comment: 3.3 - 4.4 LOW RISK 4.4 - 7.1 AVERAGE RISK 7.1 - 11.0 MODERATE RISK >11.0 HIGH RISK Performed By: #### B 12FOL, VITAD, IRON #### [facility] [address] [place] [address] Dr. Ekta Funk Cholesterol [Mass/Vol] 248 mg/dL Critically high <=200 [facility] Comment on above: Performed By: #### B 12FOL, VITAD, IRON #### [facility] [address] [place] [address] Dr. Ekta Funk Cholesterol in HDL [Mass/Vol] 58 mg/dL Normal 40-60 [facility] Comment on above: Performed By: #### B 12FOL, VITAD, IRON #### [facility] [address] [address] [address] Ekta Funk Cholesterol in LDL [Mass/Vol] 165.6 mg/dL Normal [facility] Comment on above: Performed By: #### B 12FOL, VITAD, IRON #### [facility] [address] [address] [address] Ekta Funk Cholesterol.total/Ch olesterol in HDL [Mass ratio] 4.3 {ratio} Normal [facility] Comment on above: Performed By: #### B 12FOL, VITAD, IRON #### [facility] [address] [address] [address] Ekta Funk HDL NORMAL > or = 60 mg/dl - LO W CARDIOVASCULAR RISK <40 mg/dl - HIGH CARDIOVASCULAR RISK Normal [facility] Comment on above: Performed By: #### B 12FOL, VITAD, IRON #### [facility] [address] [address] [address] Ekta Funk LDL CALC NORMAL SEE BELOW Normal [facility] Comment on above: Result Comment: <100 mg/dl OPTIMAL 100 - 129 mg/dl NEAR OR ABOVE OPTIMAL 130 - 159 mg/dl BORDERLINE HIGH 160 - 189 mg/dl HIGH >190 mg/dl VERY HIGH Performed By: #### B 12FOL, VITAD, IRON #### [facility] [address] [address] [address] Ekta Funk Triglyceride [Mass/Vol] 122 mg/dL Normal <=150 [facility] Comment on above: Performed By: #### B 12FOL, VITAD, IRON #### [facility] [address] [address] [address] Ekta Funk VLDL CALC 24.4 mg/dL Normal [facility] Comment on above: Performed By: #### B 12FOL, VITAD, IRON #### [facility] [address] [place] [address] Dr. Ekta Funk MRI BRAIN WO CONon [...] by: RAVEN ELAINE Date: 2022-11-24 19:35 Normal [facility] PROF 14(COMP METB)on 11-24- 023 Albumin [Mass/Vol] 2.7 g/dL Critically low 3.4-5.0 [facility] Comment on above: Performed By: #### B 12FOL, VITAD, IRON #### [facility] [address] [address] [address] Ekta Funk Albumin/Globulin [Mass ratio] 0.6 {ratio} Normal [facility] Comment on above: Performed By: #### B 12FOL, VITAD, IRON #### [facility] [address] [address] [address] Ekta Funk ALP [Catalytic activity/Vol] 85 U/L Normal 46-116 [facility] Comment on above: Performed By: #### B 12FOL, VITAD, IRON #### [facility] [address] [address] [address] Ekta Funk ALT [Catalytic activity/Vol] 18 U/L Normal 14-59 [facility] Comment on above: Performed By: #### B 12FOL, VITAD, IRON #### [facility] [address] [place] [address] Dr. Ekta Funk Anion gap [Moles/Vol] 18.9 mmol/L Normal [facility] Comment on above: Performed By: #### B 12FOL, VITAD, IRON #### [facility] [address] [place] [address] Dr. Ekta Funk AST [Catalytic activity/Vol] 16 U/L Normal 15-37 [facility] Comment on above: Performed By: #### B 12FOL, VITAD, IRON #### [facility] [address] [place] [address] Dr. Ekta Funk Bilirubin [Mass/Vol] 0.4 mg/dL Normal 0.2-1.0 [facility] Comment on above: Performed By: #### B 12FOL, VITAD, IRON #### [facility] [address] [place] [address] Dr. Ekta Funk Calcium [Mass/Vol] 9.5 mg/dL Normal 8.5-10.1 [facility] Comment on above: Performed By: #### B 12FOL, VITAD, IRON #### [facility] [address] [place] [address] Dr. Ekta Funk Chloride [Moles/Vol] 108 mmol/L Critically high 98-107 [facility] Comment on above: Performed By: #### B 12FOL, VITAD, IRON #### [facility] [address] [place] [address] Dr. Ekta Funk CO2 [Moles/Vol] 21.1 mmol/L Normal 21.0-32.0 [facility] Comment on above: Performed By: #### B 12FOL, VITAD, IRON #### [facility] [address] [place] [address] Dr. Ekta Funk Creatinine [Mass/Vol] 2.08 mg/dL Critically high 0.55-1.02 [facility] Comment on above: Performed By: #### B 12FOL, VITAD, IRON #### [facility] [address] [address] [address] Ekta Funk EGFR-AF CONGOLESE 28 mL/min/1.73m2 Critically low >=60 [facility] Comment on above: Performed By: #### B 12FOL, VITAD, IRON #### [facility] [address] [place] [address] Dr. Ekta Funk EGFR-NON AF CONGOLESE 23 mL/min/1.73m2 Critically low >=60 [facility] Comment on above: Performed By: #### B 12FOL, VITAD, IRON #### [facility] [address] [address] [address] Ekta Funk Globulin (S) [Mass/Vol] 4.6 g/dL Normal [facility] Comment on above: Performed By: #### B 12FOL, VITAD, IRON #### [facility] [address] [place] [address] Dr. Ekta Funk Glucose [Mass/Vol] 119 mg/dL Critically high 74-106 [facility] Comment on above: Performed By: #### B 12FOL, VITAD, IRON #### [facility] [address] [place] [address] Dr. Ekta Funk Potassium [Moles/Vol] 5.0 mmol/L Normal 3.5-5.1 [facility] Comment on above: Performed By: #### B 12FOL, VITAD, IRON #### [facility] [address] [place] [address] Dr. Ekta Funk Protein [Mass/Vol] 7.3 g/dL Normal 6.4-8.2 [facility] Comment on above: Performed By: #### B 12FOL, VITAD, IRON #### [facility] [address] [place] [address] Dr. Ekta Funk Sodium [Moles/Vol] 143 mmol/L Normal 136-145 [facility] Comment on above: Performed By: #### B 12FOL, VITAD, IRON #### [facility] [address] [place] [address] Dr. Ekta Funk Urea nitrogen [Mass/Vol] 37.0 mg/dL Critically high 7.0-18.0 [facility] Comment on above: Performed By: #### B CAROLYN LAUGHLIN, IRON #### [facility] [address] [address] [address] Ekta Funk Urea nitrogen/Creatinine [Mass ratio] 17.8 mg/mg Normal [facility] Comment on above: Performed By: #### B CAROLYN LAUGHLIN, IRON #### [facility] [address] [address] [address] Ekta Funk TROPONIN, HIGH SENSITIVITYon 11-24-2022 HSTROP 14.1 pg/mL Normal 4.0-51.3 [facility] Comment on above: Result Comment: CUT- OFF POINTS HAVE BEEN ESTABLISHED BASED ON THE FOURTH UNIVERSAL DEFINITIONS OF MYOCARDIAL INFARCTION. THE UPPER REFERENCE LIMIT (URL) OF TROPONIN, DEFINED THE 99TH PERCENTILE OF cTnI DISTRIBUTION IN A REFERENCE POPULATION, HAS BEEN CONFIRMED THE DECISION THRESHOLD FOR DC DIAGNOSIS. Performed By: #### B CAROLYN LAUGHLIN, IRON #### [facility] [address] [address] [address] Ekta Funk TSHon 11-24-2022 TSH 1.184 uIU/mL Normal 0.358-3.740 [facility] Comment on above: Performed By: #### B CAROLYN LAUGHLIN, IRON #### [facility] [address] [place] [address] Dr. Ekta Funk XR CHEST 1 Von [...] NATALIIA TATE Date: 2022-11-24 11:00 Normal [facility] BNPon 11-13-2022 Natriuretic peptide B (Bld) [Mass/Vol] 565.0 pg/mL Normal <=900.0 [facility] Comment on above: Performed By: #### I NSULIN #### [facility] [address] [place] [address] Dr. Ekta Funk CBC AUTO DIFFon 11-13-2022 BASO # 0.1 103/ul Normal 0.0-0.1 [facility] Comment on above: Performed By: #### C BC #### [facility] [address] [place] [address] Dr. Ekta Funk Basophils/100 WBC (Bld) 0.6 % Normal 0.2-2.0 [facility] Comment on above: Performed By: #### C BC #### [facility] [address] [place] [address] Dr. Ekta Funk EO # 0.4 103/ul Normal 0.0-0.7 [facility] Comment on above: Performed By: #### C BC #### [facility] [address] [place] [address] Dr. Ekta Funk Eosinophils/100 WBC (Bld) 3.7 % Normal 0.9-7.0 [facility] Comment on above: Performed By: #### C BC #### [facility] [address] [place] [address] Dr. Ekta Funk Erythrocyte distribution width (RBC) [Ratio] 13.2 % Normal 11.0-15.0 [facility] Comment on above: Performed By: #### C BC #### [facility] [address] [place] [address] Dr. Ekta Funk Hematocrit (Bld) [Volume fraction] 36.7 % Normal 36.0-48.0 [facility] Comment on above: Performed By: #### C BC #### [facility] [address] [place] [address] Dr. Ekta Funk Hemoglobin (Bld) [Mass/Vol] 12.4 g/dL Normal 12.0-16.0 [facility] Comment on above: Performed By: #### C BC #### [facility] [address] [address] [address] Ekta Funk IG # 0.10 10e3/ul Critically high 0.00-0.03 [facility] Comment on above: Performed By: #### C BC #### [facility] [address] [address] [address] Ekta Funk IG % 1.0 % Critically high 0.0-0.5 [facility] Comment on above: Performed By: #### C BC #### [facility] [address] [place] [address] Dr. Ekta Funk LYMPH # 1.5 103/ul Normal 1.2-3.8 [facility] Comment on above: Performed By: #### C BC #### [facility] [address] [place] [address] Dr. Ekta Funk Lymphocytes/100 WBC (Bld) 14.9 % Critically low 20.5-60.0 [facility] Comment on above: Performed By: #### C BC #### [facility] [address] [place] [address] Dr. Ekta Funk MANUAL DIFF REQ NO Normal [facility] Comment on above: Performed By: #### C BC #### [facility] [address] [place] [address] Dr. Ekta Funk MCH (RBC) [Entitic mass] 32.8 pg Normal 26.7-34.0 [facility] Comment on above: Performed By: #### C BC #### [facility] [address] [place] [address] Dr. Ekta Funk MCHC (RBC) [Mass/Vol] 33.8 g/dL Normal 29.9-35.2 [facility] Comment on above: Performed By: #### C BC #### [facility] [address] [place] [address] Dr. Ekta Funk MCV (RBC) [Entitic vol] 97.1 fL Normal 81.0-99.0 [facility] Comment on above: Performed By: #### C BC #### [facility] [address] [place] [address] Dr. Ekta Funk MONO # 0.8 103/ul Normal 0.3-0.8 [facility] Comment on above: Performed By: #### C BC #### [facility] [address] [place] [address] Dr. Ekta Funk Monocytes/100 WBC (Bld) 7.7 % Normal 1.7-12.0 [facility] Comment on above: Performed By: #### C BC #### [facility] [address] [place] [address] Dr. Ekta Funk NEUT # 7.3 103/ul Critically high 1.4-6.5 [facility] Comment on above: Performed By: #### C BC #### [facility] [address] [place] [address] Dr. Ekta Funk Neutrophils/100 WBC (Bld) 72.1 % Normal 43.0-75.0 [facility] Comment on above: Performed By: #### C BC #### [facility] [address] [place] [address] Dr. Ekta Funk Platelet mean volume (Bld) [Entitic vol] 9.4 fL Critically low 9.5-13.5 [facility] Comment on above: Performed By: #### C BC #### [facility] [address] [place] [address] Dr. Ekta Funk PLT 251 103/ul Normal 150-450 [facility] Comment on above: Performed By: #### C BC #### [facility] [address] [place] [address] Dr. Ekta Funk RBC 3.78 106/ul Critically low 4.20-5.40 [facility] Comment on above: Performed By: #### C BC #### [facility] [address] [place] [address] Dr. Ekta Funk WBC 10.1 103/ul Normal 4.0-11.0 [facility] Comment on above: Performed By: #### C BC #### [facility] [address] [place] [address] Dr. Ekta Funk FREE THYROXINE INDEX T7on FTI 2.73 Normal 1.30-4.50 [facility] Comment on above: Performed By: #### I NSULIN #### [facility] [address] [address] [address] Ekta Funk T3U 35.0 % Normal 30.0-39.0 [facility] Comment on above: Performed By: #### I NSULIN #### [facility] [address] [address] [address] Ekta Funk T4 [Mass/Vol] 7.80 ug/dL Normal 4.80-13.90 [facility] Comment on above: Performed By: #### I NSULIN #### [facility] [address] [address] [address] Ekta Funk GLYCOHEMOGLOBIN A1Con 2022 ADA RECOMMENDATION SEE BELOW Normal [facility] Comment on above: Result Comment: ADA RECOMMENDED LIMIT 4.0 - 6.0 ADA THERAPEUTIC TARGET < 7.0 ACTION SUGGESTED > 7.0 Performed By: #### B 12FOL, VITAD, IRON #### [facility] [address] [address] [address] Ekta Funk Glucose [Mass/Vol] 134 mg/dL Normal [facility] Comment on above: Performed By: #### B 12FOL, VITAD, IRON #### [facility] [address] [address] [address] Ekta Funk HbA1c (Bld) [Mass fraction] 6.3 % Critically high 4.5-6.2 [facility] Comment on above: Performed By: #### B 12FOL, VITAD, IRON #### [facility] [address] [address] [address] Ekta Funk IRONon 11-13-2022 Iron [Mass/Vol] 55.0 ug/dL Normal 50.0-170.0 [facility] Comment on above: Performed By: #### B 12FOL, VITAD, IRON #### [facility] [address] [place] [address] Dr. Ekta Funk LIPID PROFILEon 11-13-2022 CHOL-HDL RATIO NORM SEE BELOW Normal [facility] Comment on above: Result Comment: 3.3 - 4.4 LOW RISK 4.4 - 7.1 AVERAGE RISK 7.1 - 11.0 MODERATE RISK >11.0 HIGH RISK Performed By: #### I NSULIN #### [facility] [address] [address] [address] Ekta Funk Cholesterol [Mass/Vol] 294 mg/dL Critically high <=200 [facility] Comment on above: Performed By: #### I NSULIN #### [facility] [address] [address] [address] Ekta Funk Cholesterol in HDL [Mass/Vol] 64 mg/dL Critically high 40-60 [facility] Comment on above: Performed By: #### I NSULIN #### [facility] [address] [address] [address] Ekta Funk Cholesterol in LDL [Mass/Vol] 197.2 mg/dL Normal [facility] Comment on above: Performed By: #### I NSULIN #### [facility] [address] [address] [address] Ekta Funk Cholesterol.total/Ch olesterol in HDL [Mass ratio] 4.6 {ratio} Normal [facility] Comment on above: Performed By: #### I NSULIN #### [facility] [address] [address] [address] Ekta Funk HDL NORMAL > or = 60 mg/dl - LO W CARDIOVASCULAR RISK <40 mg/dl - HIGH CARDIOVASCULAR RISK Normal [facility] Comment on above: Performed By: #### I NSULIN #### [facility] [address] [address] [address] Ekta Funk LDL CALC NORMAL SEE BELOW Normal [facility] Comment on above: Result Comment: <100 mg/dl OPTIMAL 100 - 129 mg/dl NEAR OR ABOVE OPTIMAL 130 - 159 mg/dl BORDERLINE HIGH 160 - 189 mg/dl HIGH >190 mg/dl VERY HIGH Performed By: #### I NSULIN #### [facility] [address] [address] [address] Ekta Funk Triglyceride [Mass/Vol] 164 mg/dL Critically high <=150 [facility] Comment on above: Performed By: #### I NSULIN #### [facility] [address] [place] [address] Dr. Ekta Fnuk VLDL CALC 32.8 mg/dL Normal [facility] Comment on above: Performed By: #### I NSULIN #### [facility] [address] [place] [address] Dr. Ekta Funk PROF 14(COMP METB)on 023 Albumin [Mass/Vol] 3.0 g/dL Critically low 3.4-5.0 [facility] Comment on above: Performed By: #### I NSULIN #### [facility] [address] [place] [address] Dr. Ekta Funk Albumin/Globulin [Mass ratio] 0.6 {ratio} Normal [facility] Comment on above: Performed By: #### I NSULIN #### [facility] [address] [place] [address] Dr. Ekta Funk ALP [Catalytic activity/Vol] 92 U/L Normal 46-116 [facility] Comment on above: Performed By: #### I NSULIN #### [facility] [address] [place] [address] Dr. Ekta Funk ALT [Catalytic activity/Vol] 26 U/L Normal 14-59 [facility] Comment on above: Performed By: #### I NSULIN #### [facility] [address] [place] [address] Dr. Ekta Funk Anion gap [Moles/Vol] 16.2 mmol/L Normal [facility] Comment on above: Performed By: #### I NSULIN #### [facility] [address] [place] [address] Dr. Ekta Funk AST [Catalytic activity/Vol] 16 U/L Normal 15-37 [facility] Comment on above: Performed By: #### I NSULIN #### [facility] [address] [place] [address] Dr. Ekta Funk Bilirubin [Mass/Vol] 0.5 mg/dL Normal 0.2-1.0 [facility] Comment on above: Performed By: #### I NSULIN #### [facility] [address] [place] [address] Dr. Ekta Funk Calcium [Mass/Vol] 9.7 mg/dL Normal 8.5-10.1 [facility] Comment on above: Performed By: #### I NSULIN #### [facility] [address] [place] [address] Dr. Ekta Funk Chloride [Moles/Vol] 105 mmol/L Normal 98-107 [facility] Comment on above: Performed By: #### I NSULIN #### [facility] [address] [place] [address] Dr. Ekta Funk CO2 [Moles/Vol] 24.9 mmol/L Normal 21.0-32.0 [facility] Comment on above: Performed By: #### I NSULIN #### [facility] [address] [place] [address] Dr. Ekta Funk Creatinine [Mass/Vol] 2.18 mg/dL Critically high 0.55-1.02 [facility] Comment on above: Performed By: #### I NSULIN #### [facility] [address] [place] [address] Dr. Ekta Funk EGFR-AF CONGOLESE 27 mL/min/1.73m2 Critically low >=60 [facility] Comment on above: Performed By: #### I NSULIN #### [facility] [address] [place] [address] Dr. Ekta Funk EGFR-NON AF CONGOLESE 22 mL/min/1.73m2 Critically low >=60 [facility] Comment on above: Performed By: #### I NSULIN #### [facility] [address] [place] [address] Dr. Ekta Funk Globulin (S) [Mass/Vol] 4.7 g/dL Normal [facility] Comment on above: Performed By: #### I NSULIN #### [facility] [address] [place] [address] Dr. Ekta Funk Glucose [Mass/Vol] 114 mg/dL Critically high 74-106 [facility] Comment on above: Performed By: #### I NSULIN #### [facility] [address] [address] [address] Ekta Funk Potassium [Moles/Vol] 5.1 mmol/L Normal 3.5-5.1 [facility] Comment on above: Performed By: #### I NSULIN #### [facility] [address] [place] [address] Dr. Ekta Funk Protein [Mass/Vol] 7.7 g/dL Normal 6.4-8.2 [facility] Comment on above: Performed By: #### I NSULIN #### [facility] [address] [place] [address] Dr. Ekta Funk Sodium [Moles/Vol] 141 mmol/L Normal 136-145 [facility] Comment on above: Performed By: #### I NSULIN #### [facility] [address] [place] [address] Dr. Ekta Funk Urea nitrogen [Mass/Vol] 51.0 mg/dL Critically high 7.0-18.0 [facility] Comment on above: Performed By: #### I NSULIN #### [facility] [address] [place] [address] Dr. Ekta Funk Urea nitrogen/Creatinine [Mass ratio] 23.4 mg/mg Normal [facility] Comment on above: Performed By: #### I NSULIN #### [facility] [address] [place] [address] Dr. Ekta Funk TSHon 11-13-2022 TSH 0.935 uIU/mL Normal 0.358-3.740 [facility] Comment on above: Performed By: #### I NSULIN #### [facility] [address] [place] [address] Dr. Ekta Funk XR CHEST 2 Von [...] GODWIN BECK Date: 2022-11-13 15:40 Normal [facility] PROF 14(COMP METB)on 023 Albumin [Mass/Vol] 3.0 g/dL Critically low 3.4-5.0 Th [facility] Comment on above: Performed By: #### B 12FOL, VITAD, IRON #### [facility] [address] [place] [address] Dr. Ekta Funk Albumin/Globulin [Mass ratio] 0.7 {ratio} Normal [facility] Comment on above: Performed By: #### B 12FOL, VITAD, IRON #### [facility] [address] [place] [address] Dr. Ekta Funk ALP [Catalytic activity/Vol] 89 U/L Normal 46-116 [facility] Comment on above: Performed By: #### B 12FOL, VITAD, IRON #### [facility] [address] [place] [address] Dr. Ekta Funk ALT [Catalytic activity/Vol] 29 U/L Normal 14-59 [facility] Comment on above: Performed By: #### B 12FOL, VITAD, IRON #### [facility] [address] [place] [address] Dr. Ekta Funk Anion gap [Moles/Vol] 15.2 mmol/L Normal [facility] Comment on above: Performed By: #### B 12FOL, VITAD, IRON #### [facility] [address] [place] [address] Dr. Ekta Funk AST [Catalytic activity/Vol] 14 U/L Critically low 15-37 [facility] Comment on above: Performed By: #### B 12FOL, VITAD, IRON #### [facility] [address] [place] [address] Dr. Ekta Funk Bilirubin [Mass/Vol] 0.4 mg/dL Normal 0.2-1.0 [facility] Comment on above: Performed By: #### B 12FOL, VITAD, IRON #### [facility] [address] [address] [address] Ekta Funk Calcium [Mass/Vol] 9.1 mg/dL Normal 8.5-10.1 [facility] Comment on above: Performed By: #### B 12FOL, VITAD, IRON #### [facility] [address] [address] [address] Ekta Funk Chloride [Moles/Vol] 106 mmol/L Normal 98-107 [facility] Comment on above: Performed By: #### B 12FOL, VITAD, IRON #### [facility] [address] [place] [address] Dr. Ekta Funk CO2 [Moles/Vol] 24.2 mmol/L Normal 21.0-32.0 [facility] Comment on above: Performed By: #### B 12FOL, VITAD, IRON #### [facility] [address] [address] [address] Ekta Funk Creatinine [Mass/Vol] 1.89 mg/dL Critically high 0.55-1.02 [facility] Comment on above: Performed By: #### B 12FOL, VITAD, IRON #### [facility] [address] [place] [address] Dr. Ekta Funk EGFR-AF CONGOLESE 32 mL/min/1.73m2 Critically low >=60 [facility] Comment on above: Performed By: #### B 12FOL, VITAD, IRON #### [facility] [address] [address] [address] Ekta Fnuk EGFR-NON AF CONGOLESE 26 mL/min/1.73m2 Critically low >=60 [facility] Comment on above: Performed By: #### B 12FOL, VITAD, IRON #### [facility] [address] [address] [address] Ekta Funk Globulin (S) [Mass/Vol] 4.1 g/dL Normal [facility] Comment on above: Performed By: #### B 12FOL, VITAD, IRON #### [facility] [address] [address] [address] Ekta Funk Glucose [Mass/Vol] 108 mg/dL Critically high 74-106 [facility] Comment on above: Performed By: #### B 12FOL, VITAD, IRON #### [facility] [address] [place] [address] Dr. Ekta Funk Potassium [Moles/Vol] 4.4 mmol/L Normal 3.5-5.1 [facility] Comment on above: Performed By: #### B 12FOL, VITAD, IRON #### [facility] [address] [place] [address] Dr. Ekta Funk Protein [Mass/Vol] 7.1 g/dL Normal 6.4-8.2 [facility] Comment on above: Performed By: #### B 12FOL, VITAD, IRON #### [facility] [address] [place] [address] Dr. Ekta Funk Sodium [Moles/Vol] 141 mmol/L Normal 136-145 [facility] Comment on above: Performed By: #### B 12FOL, VITAD, IRON #### [facility] [address] [place] [address] Dr. Ekta Funk Urea nitrogen [Mass/Vol] 40.0 mg/dL Critically high 7.0-18.0 [facility] Comment on above: Performed By: #### B 12FOL, VITAD, IRON #### [facility] [address] [place] [address] Dr. Ekta Funk Urea nitrogen/Creatinine [Mass ratio] 21.2 mg/mg Normal [facility] Comment on above: Performed By: #### B 12FOL, VITAD, IRON #### [facility] [address] [place] [address] Dr. Ekta Funk BNPon 10-23-2022 Natriuretic peptide B (Bld) [Mass/Vol] 507.0 pg/mL Normal <=900.0 [facility] Comment on above: Performed By: #### B 12FOL, VITAD, IRON #### [facility] [address] [place] [address] Dr. Ekta Funk CBC AUTO DIFFon 10-23-2022 BASO # 0.0 103/ul Normal 0.0-0.1 [facility] Comment on above: Performed By: #### C BC #### [facility] [address] [place] [address] Dr. Ekta Funk Basophils/100 WBC (Bld) 0.2 % Normal 0.2-2.0 [facility] Comment on above: Performed By: #### C BC #### [facility] [address] [place] [address] Dr. Ekta Funk EO # 0.1 103/ul Normal 0.0-0.7 [facility] Comment on above: Performed By: #### C BC #### [facility] [address] [place] [address] Dr. Ekta Funk Eosinophils/100 WBC (Bld) 1.1 % Normal 0.9-7.0 [facility] Comment on above: Performed By: #### C BC #### [facility] [address] [place] [address] Dr. Ekta Funk Erythrocyte distribution width (RBC) [Ratio] 12.8 % Normal 11.0-15.0 [facility] Comment on above: Performed By: #### C BC #### [facility] [address] [place] [address] Dr. Ekta Funk Hematocrit (Bld) [Volume fraction] 37.1 % Normal 36.0-48.0 [facility] Comment on above: Performed By: #### C BC #### [facility] [address] [place] [address] Dr. Ekta Funk Hemoglobin (Bld) [Mass/Vol] 13.0 g/dL Normal 12.0-16.0 [facility] Comment on above: Performed By: #### C BC #### [facility] [address] [place] [address] Dr. Ekta Funk IG # 0.11 10e3/ul Critically high 0.00-0.03 [facility] Comment on above: Performed By: #### C BC #### [facility] [address] [place] [address] Dr. Ekta Funk IG % 1.1 % Critically high 0.0-0.5 [facility] Comment on above: Performed By: #### C BC #### [facility] [address] [place] [address] Dr. Ekta Funk LYMPH # 1.6 103/ul Normal 1.2-3.8 [facility] Comment on above: Performed By: #### C BC #### [facility] [address] [place] [address] Dr. Ekta Funk Lymphocytes/100 WBC (Bld) 15.6 % Critically low 20.5-60.0 [facility] Comment on above: Performed By: #### C BC #### [facility] [address] [place] [address] Dr. Ekta Funk MANUAL DIFF REQ NO Normal [facility] Comment on above: Performed By: #### C BC #### [facility] [address] [place] [address] Dr. Ekta Funk MCH (RBC) [Entitic mass] 32.8 pg Normal 26.7-34.0 [facility] Comment on above: Performed By: #### C BC #### [facility] [address] [place] [address] Dr. Ekta Funk MCHC (RBC) [Mass/Vol] 35.0 g/dL Normal 29.9-35.2 [facility] Comment on above: Performed By: #### C BC #### [facility] [address] [place] [address] Dr. Ekta Funk MCV (RBC) [Entitic vol] 93.7 fL Normal 81.0-99.0 [facility] Comment on above: Performed By: #### C BC #### [facility] [address] [place] [address] Dr. Ekta Funk MONO # 0.9 103/ul Critically high 0.3-0.8 [facility] Comment on above: Performed By: #### C BC #### [facility] [address] [address] [address] Ekta Funk Monocytes/100 WBC (Bld) 8.3 % Normal 1.7-12.0 [facility] Comment on above: Performed By: #### C BC #### [facility] [address] [address] [address] Ekta Funk NEUT # 7.5 103/ul Critically high 1.4-6.5 [facility] Comment on above: Performed By: #### C BC #### [facility] [address] [address] [address] Ekta Funk Neutrophils/100 WBC (Bld) 73.7 % Normal 43.0-75.0 [facility] Comment on above: Performed By: #### C BC #### [facility] [address] [address] [address] Ekta Funk Platelet mean volume (Bld) [Entitic vol] 10.3 fL Normal 9.5-13.5 [facility] Comment on above: Performed By: #### C BC #### [facility] [address] [address] [address] Ekta Funk PLT 135 103/ul Critically low 150-[address] [facility] Comment on above: Performed By: #### C BC #### [facility] [address] [address] [address] Ekta Funk RBC 3.96 106/ul Critically low 4.20-5.40 [facility] Comment on above: Performed By: #### C BC #### [facility] [address] [address] [address] Ekta Funk WBC 10.2 103/ul Normal 4.0-11.0 [facility] Comment on above: Performed By: #### C BC #### [facility] [address] [address] [address] Ekta Funk PROF 14(COMP METB)on 023 Albumin [Mass/Vol] 2.7 g/dL Critically low 3.4-5.0 [facility] Comment on above: Performed By: #### B 12FOL, VITAD, IRON #### [facility] [address] [place] [address] Dr. Ekta Funk Albumin/Globulin [Mass ratio] 0.8 {ratio} Normal [facility] Comment on above: Performed By: #### B 12FOL, VITAD, IRON #### [facility] [address] [place] [address] Dr. Ekta Funk ALP [Catalytic activity/Vol] 74 U/L Normal 46-116 [facility] Comment on above: Performed By: #### B 12FOL, VITAD, IRON #### [facility] [address] [place] [address] Dr. Ekta Funk ALT [Catalytic activity/Vol] 26 U/L Normal 14-59 [facility] Comment on above: Performed By: #### B 12FOL, VITAD, IRON #### [facility] [address] [place] [address] Dr. Ekta Funk Anion gap [Moles/Vol] 16.5 mmol/L Normal [facility] Comment on above: Performed By: #### B 12FOL, VITAD, IRON #### [facility] [address] [place] [address] Dr. Ekta Funk AST [Catalytic activity/Vol] 15 U/L Normal 15-37 [facility] Comment on above: Performed By: #### B 12FOL, VITAD, IRON #### [facility] [address] [place] [address] Dr. Ekta Funk Bilirubin [Mass/Vol] 0.4 mg/dL Normal 0.2-1.0 [facility] Comment on above: Performed By: #### B 12FOL, VITAD, IRON #### [facility] [address] [place] [address] Dr. Ekta Funk Calcium [Mass/Vol] 8.1 mg/dL Critically low 8.5-10.1 [facility] Comment on above: Performed By: #### B 12FOL, VITAD, IRON #### [facility] [address] [place] [address] Dr. Ekta Funk Chloride [Moles/Vol] 96 mmol/L Critically low 98-107 [facility] Comment on above: Performed By: #### B 12FOL, VITAD, IRON #### [facility] [address] [place] [address] Dr. Ekta Funk CO2 [Moles/Vol] 26.1 mmol/L Normal 21.0-32.0 [facility] Comment on above: Performed By: #### B 12FOL, VITAD, IRON #### [facility] [address] [place] [address] Dr. Ekta Funk Creatinine [Mass/Vol] 3.28 mg/dL Critically high 0.55-1.02 [facility] Comment on above: Performed By: #### B 12FOL, VITAD, IRON #### [facility] [address] [place] [address] Dr. Ekta Funk EGFR-AF CONGOLESE 17 mL/min/1.73m2 Critically low >=60 [facility] Comment on above: Performed By: #### B 12FOL, VITAD, IRON #### [facility] [address] [place] [address] Dr. Ekta Funk EGFR-NON AF CONGOLESE 14 mL/min/1.73m2 Critically low >=60 [facility] Comment on above: Performed By: #### B 12FOL, VITAD, IRON #### [facility] [address] [place] [address] Dr. Ekta Funk Globulin (S) [Mass/Vol] 3.6 g/dL Normal [facility] Comment on above: Performed By: #### B 12FOL, VITAD, IRON #### [facility] [address] [place] [address] Dr. Ekta Funk Glucose [Mass/Vol] 132 mg/dL Critically high 74-106 [facility] Comment on above: Performed By: #### B 12FOL, VITAD, IRON #### [facility] [address] [place] [address] Dr. Ekta Funk Potassium [Moles/Vol] 4.6 mmol/L Normal 3.5-5.1 [facility] Comment on above: Performed By: #### B 12FOL, VITAD, IRON #### [facility] [address] [place] [address] Dr. Ekta Funk Protein [Mass/Vol] 6.3 g/dL Critically low 6.4-8.2 [facility] Comment on above: Performed By: #### B 12FOL, VITAD, IRON #### [facility] [address] [place] [address] Dr. Ekta Funk Sodium [Moles/Vol] 134 mmol/L Critically low 136-145 [facility] Comment on above: Performed By: #### B 12FOL, VITAD, IRON #### [facility] [address] [place] [address] Dr. Ekta Funk Urea nitrogen [Mass/Vol] 74.0 mg/dL Critically high 7.0-18.0 [facility] Comment on above: Performed By: #### B 12FOL, VITAD, IRON #### [facility] [address] [place] [address] Dr. Ekta Funk Urea nitrogen/Creatinine [Mass ratio] 22.6 mg/mg Normal [facility] Comment on above: Performed By: #### B 12FOL, VITAD, IRON #### [facility] [address] [place] [address] Dr. Ekta Funk BNPon 10-22-2022 Natriuretic peptide B (Bld) [Mass/Vol] 1411.0 pg/mL Critically high <=900.0 [facility] Comment on above: Performed By: #### B 12FOL, VITAD, IRON #### [facility] [address] [place] [address] Dr. Ekta Funk CBC AUTO DIFFon 10-22-2022 BASO # 0.0 103/ul Normal 0.0-0.1 [facility] Comment on above: Performed By: #### B 12FOL, VITAD, IRON #### [facility] [address] [place] [address] Dr. Ekta Funk Basophils/100 WBC (Bld) 0.3 % Normal 0.2-2.0 [facility] Comment on above: Performed By: #### B 12FOL, VITAD, IRON #### [facility] [address] [place] [address] Dr. Ekta Funk EO # 0.1 103/ul Normal 0.0-0.7 [facility] Comment on above: Performed By: #### B 12FOL, VITAD, IRON #### [facility] [address] [place] [address] Dr. Ekta Funk Eosinophils/100 WBC (Bld) 0.6 % Critically low 0.9-7.0 [facility] Comment on above: Performed By: #### B 12FOL, VITAD, IRON #### [facility] [address] [place] [address] Dr. Ekta Funk Erythrocyte distribution width (RBC) [Ratio] 12.9 % Normal 11.0-15.0 [facility] Comment on above: Performed By: #### B 12FOL, VITAD, IRON #### [facility] [address] [place] [address] Dr. Ekta Funk Hematocrit (Bld) [Volume fraction] 40.8 % Normal 36.0-48.0 [facility] Comment on above: Performed By: #### B 12FOL, VITAD, IRON #### [facility] [address] [place] [address] Dr. Ekta Funk Hemoglobin (Bld) [Mass/Vol] 14.0 g/dL Normal 12.0-16.0 [facility] Comment on above: Performed By: #### B 12FOL, VITAD, IRON #### [facility] [address] [place] [address] Dr. Ekta Funk IG # 0.09 10e3/ul Critically high 0.00-0.03 [facility] Comment on above: Performed By: #### B 12FOL, VITAD, IRON #### [facility] [address] [place] [address] Dr. Ekta Funk IG % 0.8 % Critically high 0.0-0.5 [facility] Comment on above: Performed By: #### B 12FOL, VITAD, IRON #### [facility] [address] [place] [address] Dr. Ekta Funk LYMPH # 1.8 103/ul Normal 1.2-3.8 [facility] Comment on above: Performed By: #### B 12FOL, VITAD, IRON #### [facility] [address] [place] [address] Dr. Ekta Funk Lymphocytes/100 WBC (Bld) 16.2 % Critically low 20.5-60.0 [facility] Comment on above: Performed By: #### B 12FOL, VITAD, IRON #### [facility] [address] [place] [address] Dr. Ekta Funk MANUAL DIFF REQ NO Normal [facility] Comment on above: Performed By: #### B 12FOL, VITAD, IRON #### [facility] [address] [place] [address] Dr. Ekta Funk MCH (RBC) [Entitic mass] 32.3 pg Normal 26.7-34.0 [facility] Comment on above: Performed By: #### B 12FOL, VITAD, IRON #### [facility] [address] [place] [address] Dr. Ekta Funk MCHC (RBC) [Mass/Vol] 34.3 g/dL Normal 29.9-35.2 [facility] Comment on above: Performed By: #### B 12FOL, VITAD, IRON #### [facility] [address] [place] [address] Dr. Ekta Funk MCV (RBC) [Entitic vol] 94.2 fL Normal 81.0-99.0 [facility] Comment on above: Performed By: #### B 12FOL, VITAD, IRON #### [facility] [address] [place] [address] Dr. Ekta Funk MONO # 0.8 103/ul Normal 0.3-0.8 [facility] Comment on above: Performed By: #### B 12FOL, VITAD, IRON #### [facility] [address] [place] [address] Dr. Ekta Funk Monocytes/100 WBC (Bld) 7.3 % Normal 1.7-12.0 [facility] Comment on above: Performed By: #### B 12FOL, VITAD, IRON #### [facility] [address] [place] [address] Dr. Ekta Funk NEUT # 8.1 103/ul Critically high 1.4-6.5 [facility] Comment on above: Performed By: #### B 12FOL, VITAD, IRON #### [facility] [address] [place] [address] Dr. Ekta Funk Neutrophils/100 WBC (Bld) 74.8 % Normal 43.0-75.0 [facility] Comment on above: Performed By: #### B 12FOL, VITAD, IRON #### [facility] [address] [place] [address] Dr. Ekta Funk Platelet mean volume (Bld) [Entitic vol] 9.8 fL Normal 9.5-13.5 [facility] Comment on above: Performed By: #### B 12FOL, VITAD, IRON #### [facility] [address] [place] [address] Dr. Ekta Funk PLT 226 103/ul Normal 150-450 [facility] Comment on above: Performed By: #### B 12FOL, VITAD, IRON #### [facility] [address] [place] [address] Dr. Ekta Funk RBC 4.33 106/ul Normal 4.20-5.40 [facility] Comment on above: Performed By: #### B 12FOL, VITAD, IRON #### [facility] [address] [place] [address] Dr. Ekta Funk WBC 10.9 103/ul Normal 4.0-11.0 [facility] Comment on above: Performed By: #### B 12FOL, VITAD, IRON #### [facility] [address] [place], [place] [id number] Dr. Ekta Funk PROF 14(COMP METB)on 023 Albumin [Mass/Vol] 3.1 g/dL Critically low 3.4-5.0 [facility] Comment on above: Performed By: #### B 12FOL, VITAD, IRON #### [facility] [address] [place] [address] Dr. Ekta Funk Albumin/Globulin [Mass ratio] 0.7 {ratio} Normal [facility] Comment on above: Performed By: #### B 12FOL, VITAD, IRON #### [facility] [address] [place] [address] Dr. Ekta Funk ALP [Catalytic activity/Vol] 81 U/L Normal 46-116 [facility] Comment on above: Performed By: #### B 12FOL, VITAD, IRON #### [facility] [address] [place] [address] Dr. Ekta Funk ALT [Catalytic activity/Vol] 30 U/L Normal 14-59 [facility] Comment on above: Performed By: #### B 12FOL, VITAD, IRON #### [facility] [address] [place] [address] Dr. Ekta Funk Anion gap [Moles/Vol] 17.3 mmol/L Normal [facility] Comment on above: Performed By: #### B 12FOL, VITAD, IRON #### [facility] [address] [place] [address] Dr. Ekta Funk AST [Catalytic activity/Vol] 11 U/L Critically low 15-37 [facility] Comment on above: Performed By: #### B 12FOL, VITAD, IRON #### [facility] [address] [place] [address] Dr. Ekta Funk Bilirubin [Mass/Vol] 0.5 mg/dL Normal 0.2-1.0 [facility] Comment on above: Performed By: #### B 12FOL, VITAD, IRON #### [facility] [address] [place] [address] Dr. Ekta Funk Calcium [Mass/Vol] 8.6 mg/dL Normal 8.5-10.1 [facility] Comment on above: Performed By: #### B 12FOL, VITAD, IRON #### [facility] [address] [place] [address] Dr. Ekta Funk Chloride [Moles/Vol] 95 mmol/L Critically low 98-107 [facility] Comment on above: Performed By: #### B 12FOL, VITAD, IRON #### [facility] [address] [place] [address] Dr. Ekta Funk CO2 [Moles/Vol] 27.3 mmol/L Normal 21.0-32.0 [facility] Comment on above: Performed By: #### B 12FOL, VITAD, IRON #### [facility] [address] [place] [address] Dr. Ekta Funk Creatinine [Mass/Vol] 3.17 mg/dL Critically high 0.55-1.02 [facility] Comment on above: Performed By: #### B 12FOL, VITAD, IRON #### [facility] [address] [place] [address] Dr. Ekta Funk EGFR-AF CONGOLESE 17 mL/min/1.73m2 Critically low >=60 [facility] Comment on above: Performed By: #### B 12FOL, VITAD, IRON #### [facility] [address] [place] [address] Dr. Ekta Funk EGFR-NON AF CONGOLESE 14 mL/min/1.73m2 Critically low >=60 [facility] Comment on above: Performed By: #### B 12FOL, VITAD, IRON #### [facility] [address] [place] [address] Dr. Ekta Funk Globulin (S) [Mass/Vol] 4.6 g/dL Normal [facility] Comment on above: Performed By: #### B 12FOL, VITAD, IRON #### [facility] [address] [place] [address] Dr. Ekta Funk Glucose [Mass/Vol] 139 mg/dL Critically high 74-106 [facility] Comment on above: Performed By: #### B 12FOL, VITAD, IRON #### [facility] [address] [place] [address] Dr. Ekta Funk Potassium [Moles/Vol] 4.6 mmol/L Normal 3.5-5.1 [facility] Comment on above: Performed By: #### B 12FOL, VITAD, IRON #### [facility] [address] [place] [address] Dr. Ekta Funk Protein [Mass/Vol] 7.7 g/dL Normal 6.4-8.2 [facility] Comment on above: Performed By: #### B 12FOL, VITAD, IRON #### [facility] [address] [place] [address] Dr. Ekta Funk Sodium [Moles/Vol] 135 mmol/L Critically low 136-145 [facility] Comment on above: Performed By: #### B 12FOL, VITAD, IRON #### [facility] [address] [place] [address] Dr. Ekta Funk Urea nitrogen [Mass/Vol] 73.0 mg/dL Critically high 7.0-18.0 [facility] Comment on above: Performed By: #### B 12FOL, VITAD, IRON #### [facility] [address] [place] [address] Dr. Ekta Funk Urea nitrogen/Creatinine [Mass ratio] 23.0 mg/mg Normal [facility] Comment on above: Performed By: #### B 12FOL, VITAD, IRON #### [facility] [address] [place] [address] Dr. Ekta Funk BNPon 10-21-2022 Natriuretic peptide B (Bld) [Mass/Vol] 2007.0 pg/mL Critically high <=900.0 [facility] Comment on above: Performed By: #### C MP #### [facility] [address] [place] [address] Dr. Ekta Funk CBC AUTO DIFFon 10-21-2022 BASO # 0.0 103/ul Normal 0.0-0.1 [facility] Comment on above: Performed By: #### C BC #### [facility] [address] [address] [address] Ekta Funk Basophils/100 WBC (Bld) 0.2 % Normal 0.2-2.0 [facility] Comment on above: Performed By: #### C BC #### [facility] [address] [place] [address] Dr. Ekta Funk EO # 0.1 103/ul Normal 0.0-0.7 [facility] Comment on above: Performed By: #### C BC #### [facility] [address] [address] [address] Ekta Funk Eosinophils/100 WBC (Bld) 0.9 % Normal 0.9-7.0 [facility] Comment on above: Performed By: #### C BC #### [facility] [address] [place] [address] Dr. Ekta Funk Erythrocyte distribution width (RBC) [Ratio] 12.8 % Normal 11.0-15.0 [facility] Comment on above: Performed By: #### C BC #### [facility] [address] [place] [address] Dr. Ekta Funk Hematocrit (Bld) [Volume fraction] 38.8 % Normal 36.0-48.0 [facility] Comment on above: Performed By: #### C BC #### [facility] [address] [place] [address] Dr. Ekta Funk Hemoglobin (Bld) [Mass/Vol] 13.3 g/dL Normal 12.0-16.0 [facility] Comment on above: Performed By: #### C BC #### [facility] [address] [place] [address] Dr. Ekta Funk IG # 0.08 10e3/ul Critically high 0.00-0.03 [facility] Comment on above: Performed By: #### C BC #### [facility] [address] [place] [address] Dr. Ekta Funk IG % 0.8 % Critically high 0.0-0.5 [facility] Comment on above: Performed By: #### C BC #### [facility] [address] [place] [address] Dr. Ekta Funk LYMPH # 1.7 103/ul Normal 1.2-3.8 [facility] Comment on above: Performed By: #### C BC #### [facility] [address] [place] [address] Dr. Ekta uFnk Lymphocytes/100 WBC (Bld) 17.3 % Critically low 20.5-60.0 [facility] Comment on above: Performed By: #### C BC #### [facility] [address] [place] [address] Dr. Ekta Funk MANUAL DIFF REQ NO Normal [facility] Comment on above: Performed By: #### C BC #### [facility] [address] [place] [address] Dr. Ekta Funk MCH (RBC) [Entitic mass] 32.1 pg Normal 26.7-34.0 [facility] Comment on above: Performed By: #### C BC #### [facility] [address] [place] [address] Dr. Ekta Funk MCHC (RBC) [Mass/Vol] 34.3 g/dL Normal 29.9-35.2 [facility] Comment on above: Performed By: #### C BC #### [facility] [address] [place] [address] Dr. Ekta Funk MCV (RBC) [Entitic vol] 93.7 fL Normal 81.0-99.0 [facility] Comment on above: Performed By: #### C BC #### [facility] [address] [place] [address] Dr. Ekta Funk MONO # 0.6 103/ul Normal 0.3-0.8 [facility] Comment on above: Performed By: #### C BC #### [facility] [address] [place] [address] Dr. Ekta Funk Monocytes/100 WBC (Bld) 6.4 % Normal 1.7-12.0 [facility] Comment on above: Performed By: #### C BC #### [facility] [address] [address] [address] Ekta Funk NEUT # 7.4 103/ul Critically high 1.4-6.5 [facility] Comment on above: Performed By: #### C BC #### [facility] [address] [address] [address] Ekta Funk Neutrophils/100 WBC (Bld) 74.4 % Normal 43.0-75.0 [facility] Comment on above: Performed By: #### C BC #### [facility] [address] [place] [address] Dr. Ekta Funk Platelet mean volume (Bld) [Entitic vol] 9.8 fL Normal 9.5-13.5 [facility] Comment on above: Performed By: #### C BC #### [facility] [address] [place] [address] Dr. Ekta Funk PLT 193 103/ul Normal 150-450 [facility] Comment on above: Performed By: #### C BC #### [facility] [address] [place] [address] Dr. Ekta Funk RBC 4.14 106/ul Critically low 4.20-5.40 [facility] Comment on above: Performed By: #### C BC #### [facility] [address] [place] [address] Dr. Ekta Funk WBC 9.9 103/ul Normal 4.0-11.0 [facility] Comment on above: Performed By: #### C BC #### [facility] [address] [place] [address] Dr. Ekta Funk PROF 14(COMP METB)on 023 Albumin [Mass/Vol] 3.2 g/dL Critically low 3.4-5.0 [facility] Comment on above: Performed By: #### I NSULIN #### [facility] [address] [place] [address] Dr. Ekta Funk Albumin/Globulin [Mass ratio] 0.8 {ratio} Normal [facility] Comment on above: Performed By: #### I NSULIN #### [facility] [address] [address] [address] Ekta Funk ALP [Catalytic activity/Vol] 82 U/L Normal 46-116 [facility] Comment on above: Performed By: #### I NSULIN #### [facility] [address] [place] [address] Dr. Ekta Funk ALT [Catalytic activity/Vol] 38 U/L Normal 14-59 [facility] Comment on above: Performed By: #### I NSULIN #### [facility] [address] [place] [address] Dr. Ekta Funk Anion gap [Moles/Vol] 19.1 mmol/L Normal [facility] Comment on above: Performed By: #### I NSULIN #### [facility] [address] [place] [address] Dr. Ekta Funk AST [Catalytic activity/Vol] 19 U/L Normal 15-37 [facility] Comment on above: Performed By: #### I NSULIN #### [facility] [address] [place] [address] Dr. Ekta Funk Bilirubin [Mass/Vol] 0.4 mg/dL Normal 0.2-1.0 [facility] Comment on above: Performed By: #### I NSULIN #### [facility] [address] [place] [address] Dr. Ekta Funk Calcium [Mass/Vol] 9.2 mg/dL Normal 8.5-10.1 [facility] Comment on above: Performed By: #### I NSULIN #### [facility] [address] [place] [address] Dr. Ekta Funk Chloride [Moles/Vol] 98 mmol/L Normal 98-107 [facility] Comment on above: Performed By: #### I NSULIN #### [facility] [address] [place] [address] Dr. Ekta Funk CO2 [Moles/Vol] 26.4 mmol/L Normal 21.0-32.0 [facility] Comment on above: Performed By: #### I NSULIN #### [facility] [address] [place] [address] Dr. Ekta Funk Creatinine [Mass/Vol] 2.20 mg/dL Critically high 0.55-1.02 [facility] Comment on above: Performed By: #### I NSULIN #### [facility] [address] [address] [address] Ekta Funk EGFR-AF CONGOLESE 26 mL/min/1.73m2 Critically low >=60 [facility] Comment on above: Performed By: #### I NSULIN #### [facility] [address] [address] [address] Ekta Funk EGFR-NON AF CONGOLESE 22 mL/min/1.73m2 Critically low >=60 [facility] Comment on above: Performed By: #### I NSULIN #### [facility] [address] [address] [address] Ekta Funk Globulin (S) [Mass/Vol] 3.8 g/dL Normal [facility] Comment on above: Performed By: #### I NSULIN #### [facility] [address] [address] [address] Ekta Funk Glucose [Mass/Vol] 142 mg/dL Critically high 74-106 [facility] Comment on above: Performed By: #### I NSULIN #### [facility] [address] [address] [address] Ekta Funk Potassium [Moles/Vol] 4.5 mmol/L Normal 3.5-5.1 [facility] Comment on above: Performed By: #### I NSULIN #### [facility] [address] [address] [address] Ekta Funk Protein [Mass/Vol] 7.0 g/dL Normal 6.4-8.2 [facility] Comment on above: Performed By: #### I NSULIN #### [facility] [address] [address] [address] Ekta Funk Sodium [Moles/Vol] 139 mmol/L Normal 136-145 [facility] Comment on above: Performed By: #### I NSULIN #### [facility] [address] [address] [address] Ekta Funk Urea nitrogen [Mass/Vol] 57.0 mg/dL Critically high 7.0-18.0 [facility] Comment on above: Performed By: #### I NSULIN #### [facility] [address] [address] [address] Ekta Funk Urea nitrogen/Creatinine [Mass ratio] 25.9 mg/mg Normal [facility] Comment on above: Performed By: #### I NSULIN #### [facility] [address] [address] [address] Ekta Funk T3, TOTAL (TRIIODOTHYRONINE) on 10-21-2022 T3, TOTAL 63 ng/dL Critically low 71-[address] [facility] Comment on above: Performed By: #### C MP #### [facility] [address] [address] [address] Ekta Funk XR ABD FLAT_UPon 10-21-2022 [...] by: VISHNU MARIE Date: 2022-10-21 11:42 Normal [facility] XR CHEST 2 Von 10-21-2022 XR [...] by: CHRISTIANO MORALES Date: 2022-10-21 11:23 Normal [facility] BNPon 10-20-2022 Natriuretic peptide B (Bld) [Mass/Vol] 2512.0 pg/mL Critically high <=900.0 [facility] Comment on above: Performed By: #### B ElviraFOL VITAD, IRON #### [facility] [address] [place] [address] Dr. Ekta Funk CARDIAC BRITTANIE ADMITon 023 CK [Catalytic activity/Vol] 35 U/L Normal 26-192 [facility] Comment on above: Performed By: #### B 12FOL VITAD, IRON #### [facility] [address] [place] [address] Dr. Ekta Funk CK.MB [Mass/Vol] 0.64 ng/mL Normal <=3.60 [facility] Comment on above: Performed By: #### B QIAN VITAD, IRON #### [facility] [address] [place] [address] Dr. Ekta Funk HSTROP 28.1 pg/mL Normal 4.0-51.3 [facility] Comment on above: Result Comment: CUT- OFF POINTS HAVE BEEN ESTABLISHED BASED ON THE FOURTH UNIVERSAL DEFINITIONS OF MYOCARDIAL INFARCTION. THE UPPER REFERENCE LIMIT (URL) OF TROPONIN, DEFINED THE 99TH PERCENTILE OF cTnI DISTRIBUTION IN A REFERENCE POPULATION, HAS BEEN CONFIRMED THE DECISION THRESHOLD FOR DC DIAGNOSIS. Performed By: #### B ElviraFOHu VITAD, IRON #### [facility] [address] [place] [address] Dr. Ekta Funk EVELYN 57 ng/mL Normal 9-82 [facility] Comment on above: Performed By: #### B ElviraFOL VITAD, IRON #### [facility] [address] [place] [address] Dr. Ekta Funk CBC AUTO DIFFon 10-20-2022 BASO # 0.0 103/ul Normal 0.0-0.1 [facility] Comment on above: Performed By: #### C BC #### [facility] [address] [place] [address] Dr. Ekta Funk Basophils/100 WBC (Bld) 0.2 % Normal 0.2-2.0 [facility] Comment on above: Performed By: #### C BC #### [facility] [address] [place] [address] Dr. Ekta Funk EO # 0.2 103/ul Normal 0.0-0.7 [facility] Comment on above: Performed By: #### C BC #### [facility] [address] [place] [address] Dr. Ekta Funk Eosinophils/100 WBC (Bld) 1.4 % Normal 0.9-7.0 [facility] Comment on above: Performed By: #### C BC #### [facility] [address] [place] [address] Dr. Ekta Funk Erythrocyte distribution width (RBC) [Ratio] 12.9 % Normal 11.0-15.0 [facility] Comment on above: Performed By: #### C BC #### [facility] [address] [place] [address] Dr. Ekta Funk Hematocrit (Bld) [Volume fraction] 34.7 % Critically low 36.0-48.0 [facility] Comment on above: Performed By: #### C BC #### [facility] [address] [place] [address] Dr. Ekta Funk Hemoglobin (Bld) [Mass/Vol] 11.8 g/dL Critically low 12.0-16.0 [facility] Comment on above: Performed By: #### C BC #### [facility] [address] [place] [address] Dr. Ekta Funk IG # 0.09 10e3/ul Critically high 0.00-0.03 The [facility] Comment on above: Performed By: #### C BC #### [facility] [address] [place] [address] Dr. Ekta Funk IG % 0.8 % Critically high 0.0-0.5 [facility] Comment on above: Performed By: #### C BC #### [facility] [address] [place] [address] Dr. Ekta Funk LYMPH # 1.9 103/ul Normal 1.2-3.8 [facility] Comment on above: Performed By: #### C BC #### [facility] [address] [address] [address] Ekta Funk Lymphocytes/100 WBC (Bld) 16.1 % Critically low 20.5-60.0 [facility] Comment on above: Performed By: #### C BC #### [facility] [address] [address] [address] Ekta Funk MANUAL DIFF REQ NO Normal [facility] Comment on above: Performed By: #### C BC #### [facility] [address] [place] [address] Dr. Ekta Funk MCH (RBC) [Entitic mass] 32.6 pg Normal 26.7-34.0 [facility] Comment on above: Performed By: #### C BC #### [facility] [address] [place] [address] Dr. Ekta Funk MCHC (RBC) [Mass/Vol] 34.0 g/dL Normal 29.9-35.2 [facility] Comment on above: Performed By: #### C BC #### [facility] [address] [place] [address] Dr. Ekta Funk MCV (RBC) [Entitic vol] 95.9 fL Normal 81.0-99.0 [facility] Comment on above: Performed By: #### C BC #### [facility] [address] [place] [address] Dr. Ekta Funk MONO # 0.8 103/ul Normal 0.3-0.8 [facility] Comment on above: Performed By: #### C BC #### [facility] [address] [place] [address] Dr. Ekta Funk Monocytes/100 WBC (Bld) 7.0 % Normal 1.7-12.0 [facility] Comment on above: Performed By: #### C BC #### [facility] [address] [place] [address] Dr. Ekta Funk NEUT # 8.8 103/ul Critically high 1.4-6.5 [facility] Comment on above: Performed By: #### C BC #### [facility] [address] [place] [address] Dr. Ekta Funk Neutrophils/100 WBC (Bld) 74.5 % Normal 43.0-75.0 [facility] Comment on above: Performed By: #### C BC #### [facility] [address] [place] [address] Dr. Ekta Funk Platelet mean volume (Bld) [Entitic vol] 9.8 fL Normal 9.5-13.5 [facility] Comment on above: Performed By: #### C BC #### [facility] [address] [place] [address] Dr. Ekta Funk PLT 203 103/ul Normal 150-450 [facility] Comment on above: Performed By: #### C BC #### [facility] [address] [place] [address] Dr. Ekta Funk RBC 3.62 106/ul Critically low 4.20-5.40 [facility] Comment on above: Performed By: #### C BC #### [facility] [address] [place] [address] Dr. Ekta Funk WBC 11.8 103/ul Critically high 4.0-11.0 [facility] Comment on above: Performed By: #### C BC #### [facility] [address] [place] [address] Dr. Ekta Funk CULTURE URINEon 10-20-2022 CULTURE URINE Culture Observations : NO GROWTH. Normal [facility] Comment on above: Performed By: #### I NSULIN #### [facility] [address] [place] [address] Dr. Ekta Funk Covid-19 PCR (CVDTB)on 10-11 SARS-CoV-2 (COVID-19) RNA GANESH+probe Ql (Unsp spec) Not detected Normal NOT DETECTED [facility] Comment on above: Result Comment: [...] for this test is supported by the [place] of [employer] and Human Service's declaration that [...] be used). Performed By: #### B 12FOL, VITAD, IRON #### [facility] [address] [place] [address] Dr. Ekta Funk ECHOCARDIO M/2D COMPLETEon 0 10-20-2022 ECHOCARDIO M/2D COMPLETE Patient: SHEILA MAC Exam Date: 10/20/2022 : 1950 Gender:F Ordering : DR KRZYSZTOF HARP . Admission #: [id number] Family : Order #: [id number] CLICK HERE TO VIEW EXAM ECHOCARDIOGRAM REPORT [...] M.D. on 10/20/2022 at 14:57 Normal [facility] PROF 14(COMP METB)on 023 Albumin [Mass/Vol] 2.8 g/dL Critically low 3.4-5.0 [facility] Comment on above: Performed By: #### B 12FOL, VITAD, IRON #### [facility] [address] [address] [address] Ekta Funk Albumin/Globulin [Mass ratio] 0.7 {ratio} Normal [facility] Comment on above: Performed By: #### B 12FOL, VITAD, IRON #### [facility] [address] [place] [address] Dr. Ekta Funk ALP [Catalytic activity/Vol] 84 U/L Normal 46-116 [facility] Comment on above: Performed By: #### B 12FOL, VITAD, IRON #### [facility] [address] [place] [address] Dr. Ekta Funk ALT [Catalytic activity/Vol] 29 U/L Normal 14-59 [facility] Comment on above: Performed By: #### B 12FOL, VITAD, IRON #### [facility] [address] [place] [address] Dr. Ekta Funk Anion gap [Moles/Vol] 15.9 mmol/L Normal [facility] Comment on above: Performed By: #### B 12FOL, VITAD, IRON #### [facility] [address] [place] [address] Dr. Ekta Funk AST [Catalytic activity/Vol] 15 U/L Normal 15-37 [facility] Comment on above: Performed By: #### B 12FOL, VITAD, IRON #### [facility] [address] [address] [address] Ekta Funk Bilirubin [Mass/Vol] 0.3 mg/dL Normal 0.2-1.0 [facility] Comment on above: Performed By: #### B 12FOL, VITAD, IRON #### [facility] [address] [place] [address] Dr. Ekta Funk Calcium [Mass/Vol] 8.9 mg/dL Normal 8.5-10.1 [facility] Comment on above: Performed By: #### B 12FOL, VITAD, IRON #### [facility] [address] [place] [address] Dr. Ekta Funk Chloride [Moles/Vol] 103 mmol/L Normal 98-107 [facility] Comment on above: Performed By: #### B 12FOL, VITAD, IRON #### [facility] [address] [place] [address] Dr. Ekta Funk CO2 [Moles/Vol] 26.3 mmol/L Normal 21.0-32.0 [facility] Comment on above: Performed By: #### B 12FOL, VITAD, IRON #### [facility] [address] [place] [address] Dr. Ekta Funk Creatinine [Mass/Vol] 1.99 mg/dL Critically high 0.55-1.02 [facility] Comment on above: Performed By: #### B 12FOL, VITAD, IRON #### [facility] [address] [place] [address] Dr. Ekta Funk EGFR-AF CONGOLESE 30 mL/min/1.73m2 Critically low >=60 [facility] Comment on above: Performed By: #### B 12FOL, VITAD, IRON #### [facility] [address] [place] [address] Dr. Ekta Funk EGFR-NON AF CONGOLESE 24 mL/min/1.73m2 Critically low >=60 [facility] Comment on above: Performed By: #### B 12FOL, VITAD, IRON #### [facility] [address] [place] [address] Dr. Ekta Funk Globulin (S) [Mass/Vol] 4.1 g/dL Normal [facility] Comment on above: Performed By: #### B 12FOL, VITAD, IRON #### [facility] [address] [place] [address] Dr. Ekta Funk Glucose [Mass/Vol] 115 mg/dL Critically high 74-106 [facility] Comment on above: Performed By: #### B 12FOL, VITAD, IRON #### [facility] [address] [place] [address] Dr. Ekta Funk Potassium [Moles/Vol] 5.2 mmol/L Critically high 3.5-5.1 [facility] Comment on above: Performed By: #### B 12FOL, VITAD, IRON #### [facility] [address] [place] [address] Dr. Ekta Funk Protein [Mass/Vol] 6.9 g/dL Normal 6.4-8.2 [facility] Comment on above: Performed By: #### B 12FOL, VITAD, IRON #### [facility] [address] [place] [address] Dr. Ekta Funk Sodium [Moles/Vol] 140 mmol/L Normal 136-145 [facility] Comment on above: Performed By: #### B 12FOL, VITAD, IRON #### [facility] [address] [place] [address] Dr. Ekta Funk Urea nitrogen [Mass/Vol] 45.0 mg/dL Critically high 7.0-18.0 [facility] Comment on above: Performed By: #### B 12FOL, VITAD, IRON #### [facility] [address] [place] [address] Dr. Ekta Funk Urea nitrogen/Creatinine [Mass ratio] 22.6 mg/mg Normal [facility] Comment on above: Performed By: #### B 12FOL, VITAD, IRON #### [facility] [address] [place] [address] Dr. Ekta Funk T4on 10-20-2022 T4 [Mass/Vol] 6.10 ug/dL Normal 4.80-13.90 [facility] Comment on above: Performed By: #### B 12FOL, VITAD, IRON #### [facility] [address] [place] [address] Dr. Ekta Funk TSHon 10-20-2022 TSH 1.336 uIU/mL Normal 0.358-3.740 [facility] Comment on above: Performed By: #### B 12FOL, VITAD, IRON #### [facility] [address] [place] [address] Dr. Ekta Funk UA RANDOM W/MICROSCOPICon BACTERIA TRACE Abnormal NONE SEEN [facility] Comment on above: Performed By: #### B 12FOL, VITAD, IRON #### [facility] [address] [place] [address] Dr. Ekta Funk Bilirubin Ql (U) Negative Normal NEGATIVE [facility] Comment on above: Performed By: #### B 12FOL, VITAD, IRON #### [facility] [address] [place] [address] Dr. Ekta Funk CAST NONE SEEN Normal NONE SEEN [facility] Comment on above: Performed By: #### B 12FOL, VITAD, IRON #### [facility] [address] [place] [address] Dr. Ekta Funk Clarity (U) CLEAR Normal CLEAR [facility] Comment on above: Performed By: #### B 12FOL, VITAD, IRON #### [facility] [address] [place] [address] Dr. Ekta Funk Color (U) LT. YELLOW Normal YELLOW [facility] Comment on above: Performed By: #### B 12FOL, VITAD, IRON #### [facility] [address] [place] [address] Dr. Ekta Funk Crystals LM Nom (Urine sed) NONE SEEN Normal NONE SEEN [facility] Comment on above: Performed By: #### B 12FOL, VITAD, IRON #### [facility] [address] [place] [address] Dr. Ekta Funk Epithelial cells LM Ql (Urine sed) RARE Normal NONE SEEN /RARE [facility] Comment on above: Performed By: #### B 12FOL, VITAD, IRON #### [facility] [address] [place] [address] Dr. Ekta Funk Glucose Ql (U) Negative Normal NEGATIVE [facility] Comment on above: Performed By: #### B 12FOL, VITAD, IRON #### [facility] [address] [address] [address] Ekta Funk Hemoglobin Ql (U) Negative Normal NEGATIVE [facility] Comment on above: Performed By: #### B 12FOL, VITAD, IRON #### [facility] [address] [place] [address] Dr. Ekta Funk Ketones Ql (U) Negative Normal NEGATIVE [facility] Comment on above: Performed By: #### B 12FOL, VITAD, IRON #### [facility] [address] [address] [address] Ekta Funk LEUKOCYTES Negative Normal NEGATIVE [facility] Comment on above: Performed By: #### B 12FOL, VITAD, IRON #### [facility] [address] [place] [address] Dr. Ekta Funk MUCOUS NONE SEEN Normal NONE SEEN [facility] Comment on above: Performed By: #### B 12FOL, VITAD, IRON #### [facility] [address] [place] [address] Dr. Ekta Funk Nitrite Ql (U) Negative Normal NEGATIVE [facility] Comment on above: Performed By: #### B 12FOL, VITAD, IRON #### [facility] [address] [place] [address] Dr. Ekta Funk pH (U) 6.0 [pH] Normal 5-9 [facility] Comment on above: Performed By: #### B 12FOL, VITAD, IRON #### [facility] [address] [place] [address] Dr. Ekta Funk RBC 0-2 Normal 0-2 [facility] Comment on above: Performed By: #### B 12FOL, VITAD, IRON #### [facility] [address] [place] [address] Dr. Ekta Funk SPEC GRAVITY <=1.005 Abnormal 1.005-<=1.025 [facility] Comment on above: Performed By: #### B 12FOL, VITAD, IRON #### [facility] [address] [place] [address] Dr. Ekta Funk UA PROTEIN Negative Normal NEGATIVE/ TRACE [facility] Comment on above: Performed By: #### B 12FOL, VITAD, IRON #### [facility] [address] [address] [address] Ekta Funk Urobilinogen Qn (U) 0.2 {Ivan'U}/dL Normal 0.2 - 1. 0 [facility] Comment on above: Performed By: #### B 12FOL, VITAD, IRON #### [facility] [address] [place] [address] Dr. Ekta Funk WBC NONE SEEN Normal NONE SEEN [facility] Comment on above: Performed By: #### B 12FOL, VITAD, IRON #### [facility] [address] [place] [address] Dr. Ekta Funk BNPon 10-19-2022 Natriuretic peptide B (Bld) [Mass/Vol] 1355.0 pg/mL Critically high <=900.0 [facility] Comment on above: Performed By: #### B 12FOL, VITAD, IRON #### [facility] [address] [place] [address] Dr. Ekta Funk INSULINon 10-19-2022 Insulin 12.4 uIU/mL Normal 2.6-24.9 [facility] Comment on above: Performed By: #### I NSULIN #### [facility] [address] [place] [address] Dr. Ekta Funk OCC BLD IMMUNO SCREENon OCCULT BLOOD Positive Abnormal NEGATIVE [facility] Comment on above: Performed By: #### B 12FOL, VITAD, IRON #### [facility] [address] [place] [address] Dr. Ekta Funk PROF CHEM 8 (BAS METB)on Anion gap [Moles/Vol] 15.8 mmol/L Normal [facility] Comment on above: Performed By: #### B 12FOL, VITAD, IRON #### [facility] [address] [place] [address] Dr. Ekta Funk Calcium [Mass/Vol] 8.8 mg/dL Normal 8.5-10.1 [facility] Comment on above: Performed By: #### B 12FOL, VITAD, IRON #### [facility] [address] [place] [address] Dr. Ekta Funk Chloride [Moles/Vol] 107 mmol/L Normal 98-107 [facility] Comment on above: Performed By: #### B 12FOL, VITAD, IRON #### [facility] [address] [place] [address] Dr. Ekta Funk CO2 [Moles/Vol] 21.5 mmol/L Normal 21.0-32.0 [facility] Comment on above: Performed By: #### B 12FOL, VITAD, IRON #### [facility] [address] [place] [address] Dr. Ekta Funk Creatinine [Mass/Vol] 1.62 mg/dL Critically high 0.55-1.02 [facility] Comment on above: Performed By: #### B 12FOL, VITAD, IRON #### [facility] [address] [place] [address] Dr. Ekta Funk EGFR-AF CONGOLESE 38 mL/min/1.73m2 Critically low >=60 [facility] Comment on above: Performed By: #### B 12FOL, VITAD, IRON #### [facility] [address] [place] [address] Dr. Ekta Funk EGFR-NON AF CONGOLESE 31 mL/min/1.73m2 Critically low >=60 [facility] Comment on above: Performed By: #### B 12FOL, VITAD, IRON #### [facility] [address] [place] [address] Dr. Ekta Funk Glucose [Mass/Vol] 134 mg/dL Critically high 74-106 [facility] Comment on above: Performed By: #### B 12FOL, VITAD, IRON #### [facility] Laboratory [address] [place] [address] Dr. Ekta Funk Potassium [Moles/Vol] 5.3 mmol/L Critically high 3.5-5.1 [facility] Comment on above: Performed By: #### B 12FOL, VITAD, IRON #### [facility] [address] [place] [address] Dr. Ekta Funk Sodium [Moles/Vol] 139 mmol/L Normal 136-145 [facility] Comment on above: Performed By: #### B 12FOL, VITAD, IRON #### [facility] [address] [place] [address] Dr. Ekta Funk Urea nitrogen [Mass/Vol] 37.0 mg/dL Critically high 7.0-18.0 [facility] Comment on above: Performed By: #### B 12FOL, VITAD, IRON #### [facility] [address] [place] [address] Dr. Ekta Funk Urea nitrogen/Creatinine [Mass ratio] 22.8 mg/mg Normal [facility] Comment on above: Performed By: #### B 12FOL, VITAD, IRON #### [facility] [address] [place] [address] Dr. Ekta Funk TROPONIN, HIGH SENSITIVITYon 10-19-2022 HSTROP 53.2 pg/mL Critically high 4.0-51.3 [facility] Comment on above: Result Comment: CUT- OFF POINTS HAVE BEEN ESTABLISHED BASED ON THE FOURTH UNIVERSAL DEFINITIONS OF MYOCARDIAL INFARCTION. THE UPPER REFERENCE LIMIT (URL) OF TROPONIN, DEFINED THE 99TH PERCENTILE OF cTnI DISTRIBUTION IN A REFERENCE POPULATION, HAS BEEN CONFIRMED THE DECISION THRESHOLD FOR DC DIAGNOSIS. Performed By: #### B 12FOL, VITAD, IRON #### [facility] [address] [place] [address] Dr. Ekta Funk BNPon 10-18-2022 Natriuretic peptide B (Bld) [Mass/Vol] 1386.0 pg/mL Critically high <=900.0 [facility] Comment on above: Performed By: #### C VDTBH #### [facility] [address] [place] [address] Dr. Ekta Funk CARDIAC BRITTANIE ADMITon 023 CK [Catalytic activity/Vol] 34 U/L Normal 26-192 [facility] Comment on above: Performed By: #### C VDTBH #### [facility] [address] [address] [address] Ekta Funk CK.MB [Mass/Vol] 1.43 ng/mL Normal <=3.60 [facility] Comment on above: Performed By: #### C VDTBH #### [facility] [address] [address] [address] Ekta Funk HSTROP 74.1 pg/mL Critically high 4.0-51.3 [facility] Comment on above: Result Comment: CUT- OFF POINTS HAVE BEEN ESTABLISHED BASED ON THE FOURTH UNIVERSAL DEFINITIONS OF MYOCARDIAL INFARCTION. THE UPPER REFERENCE LIMIT (URL) OF TROPONIN, DEFINED THE 99TH PERCENTILE OF cTnI DISTRIBUTION IN A REFERENCE POPULATION, HAS BEEN CONFIRMED THE DECISION THRESHOLD FOR DC DIAGNOSIS. Performed By: #### C VDTBH #### [facility] [address] [place] [address] Dr. Ekta Funk EVELYN 52 ng/mL Normal 9-82 [facility] Comment on above: Performed By: #### C VDTBH #### [facility] [address] [place] [address] Dr. Ekta uFnk CBC AUTO DIFFon 10-18-2022 BASO # 0.0 103/ul Normal 0.0-0.1 [facility] Comment on above: Performed By: #### C BC #### [facility] [address] [place] [address] Dr. Ekta Funk Basophils/100 WBC (Bld) 0.3 % Normal 0.2-2.0 [facility] Comment on above: Performed By: #### C BC #### [facility] [address] [place] [address] Dr. Ekta Funk EO # 0.1 103/ul Normal 0.0-0.7 [facility] Comment on above: Performed By: #### C BC #### [facility] [address] [place] [address] Dr. Ekta Funk Eosinophils/100 WBC (Bld) 0.9 % Normal 0.9-7.0 [facility] Comment on above: Performed By: #### C BC #### [facility] [address] [place] [address] Dr. Ekta Funk Erythrocyte distribution width (RBC) [Ratio] 13.2 % Normal 11.0-15.0 [facility] Comment on above: Performed By: #### C BC #### [facility] [address] [place] [address] Dr. Ekta Funk Hematocrit (Bld) [Volume fraction] 38.9 % Normal 36.0-48.0 [facility] Comment on above: Performed By: #### C BC #### [facility] [address] [place] [address] Dr. Ekta Funk Hemoglobin (Bld) [Mass/Vol] 12.4 g/dL Normal 12.0-16.0 [facility] Comment on above: Performed By: #### C BC #### [facility] [address] [place] [address] Dr. Ekta Funk IG # 0.08 10e3/ul Critically high 0.00-0.03 [facility] Comment on above: Performed By: #### C BC #### [facility] [address] [place] [address] Dr. Ekta Funk IG % 0.5 % Normal 0.0-0.5 [facility] Comment on above: Performed By: #### C BC #### [facility] [address] [place] [address] Dr. Ekta Funk LYMPH # 1.4 103/ul Normal 1.2-3.8 [facility] Comment on above: Performed By: #### C BC #### [facility] [address] [place] [address] Dr. Ekta Funk Lymphocytes/100 WBC (Bld) 9.6 % Critically low 20.5-60.0 [facility] Comment on above: Performed By: #### C BC #### [facility] [address] [place] [address] Dr. Ekta Funk MANUAL DIFF REQ NO Normal [facility] Comment on above: Performed By: #### C BC #### [facility] [address] [place] [address] Dr. Ekta Funk MCH (RBC) [Entitic mass] 32.3 pg Normal 26.7-34.0 [facility] Comment on above: Performed By: #### C BC #### [facility] [address] [address] [address] Ekta Funk MCHC (RBC) [Mass/Vol] 31.9 g/dL Normal 29.9-35.2 [facility] Comment on above: Performed By: #### C BC #### [facility] [address] [address] [address] Ekta Funk MCV (RBC) [Entitic vol] 101.3 fL Critically high 81.0-99.0 [facility] Comment on above: Performed By: #### C BC #### [facility] [address] [place] [address] Dr. Ekta Funk MONO # 0.9 103/ul Critically high 0.3-0.8 [facility] Comment on above: Performed By: #### C BC #### [facility] [address] [place] [address] Dr. Ekta Funk Monocytes/100 WBC (Bld) 6.3 % Normal 1.7-12.0 [facility] Comment on above: Performed By: #### C BC #### [facility] [address] [place] [address] Dr. Ekta Funk NEUT # 12.0 103/ul Critically high 1.4-6.5 [facility] Comment on above: Performed By: #### C BC #### [facility] [address] [place] [address] Dr. Ekta Funk Neutrophils/100 WBC (Bld) 82.4 % Critically high 43.0-75.0 [facility] Comment on above: Performed By: #### C BC #### [facility] [address] [place] [address] Dr. Ekta Funk Platelet mean volume (Bld) [Entitic vol] 9.7 fL Normal 9.5-13.5 [facility] Comment on above: Performed By: #### C BC #### [facility] [address] [address] [address] Ekta Funk PLT 176 103/ul Normal 150-450 [facility] Comment on above: Performed By: #### C BC #### [facility] [address] [address] [address] Ekta Funk RBC 3.84 106/ul Critically low 4.20-5.40 [facility] Comment on above: Performed By: #### C BC #### [facility] [address] [address] [address] Ekta Funk WBC 14.6 103/ul Critically high 4.0-11.0 [facility] Comment on above: Performed By: #### C BC #### [facility] [address] [place] [address] Dr. Ekta Funk FREE THYROXINE INDEX T7on FTI 2.34 Normal 1.30-4.50 [facility] Comment on above: Performed By: #### C VDTBH #### [facility] [address] [place] [address] Dr. Ekta Funk T3U 36.0 % Normal 30.0-39.0 [facility] Comment on above: Performed By: #### C VDTBH #### [facility] [address] [place] [address] Dr. Ekta Funk T4 [Mass/Vol] 6.50 ug/dL Normal 4.80-13.90 [facility] Comment on above: Performed By: #### C VDTBH #### [facility] [address] [place] [address] Dr. Ekta Funk GLYCOHEMOGLOBIN A1Con 2022 ADA RECOMMENDATION SEE BELOW Normal [facility] Comment on above: Result Comment: ADA RECOMMENDED LIMIT 4.0 - 6.0 ADA THERAPEUTIC TARGET < 7.0 ACTION SUGGESTED > 7.0 Performed By: #### B 12FOL, VITAD, IRON #### [facility] [address] [place] [address] Dr. Ekta Funk Glucose [Mass/Vol] 140 mg/dL Normal [facility] Comment on above: Performed By: #### B 12FOL, VITAD, IRON #### [facility] [address] [address] [address] Ekta Funk HbA1c (Bld) [Mass fraction] 6.5 % Critically high 4.5-6.2 [facility] Comment on above: Performed By: #### B 12FOL, VITAD, IRON #### [facility] [address] [address] [address] Ekta Funk IRONon 10-18-2022 Iron [Mass/Vol] 62.0 ug/dL Normal 50.0-170.0 [facility] Comment on above: Performed By: #### B 12FOL, VITAD, IRON #### [facility] [address] [place] [address] Dr. Ekta Funk LIPID PROFILEon 10-18-2022 CHOL-HDL RATIO NORM SEE BELOW Normal [facility] Comment on above: Result Comment: 3.3 - 4.4 LOW RISK 4.4 - 7.1 AVERAGE RISK 7.1 - 11.0 MODERATE RISK >11.0 HIGH RISK Performed By: #### C VDTBH #### [facility] [address] [address] [address] Ekta Funk Cholesterol [Mass/Vol] 242 mg/dL Critically high <=200 [facility] Comment on above: Performed By: #### C VDTBH #### [facility] [address] [address] [address] Ekta Funk Cholesterol in HDL [Mass/Vol] 74 mg/dL Critically high 40-60 [facility] Comment on above: Performed By: #### C VDTBH #### [facility] [address] [address] [address] Ekta Funk Cholesterol in LDL [Mass/Vol] 139.4 mg/dL Normal [facility] Comment on above: Performed By: #### C VDTBH #### [facility] [address] [address] [address] Ekta Funk Cholesterol.total/Ch olesterol in HDL [Mass ratio] 3.3 {ratio} Normal [facility] Comment on above: Performed By: #### C VDTBH #### [facility] [address] [address] [address] Ekta Funk HDL NORMAL > or = 60 mg/dl - LO W CARDIOVASCULAR RISK <40 mg/dl - HIGH CARDIOVASCULAR RISK Normal [facility] Comment on above: Performed By: #### C VDTBH #### [facility] [address] [address] [address] Ekta Funk LDL CALC NORMAL SEE BELOW Normal [facility] Comment on above: Result Comment: <100 mg/dl OPTIMAL 100 - 129 mg/dl NEAR OR ABOVE OPTIMAL 130 - 159 mg/dl BORDERLINE HIGH 160 - 189 mg/dl HIGH >190 mg/dl VERY HIGH Performed By: #### C VDTBH #### [facility] [address] [place] [address] Dr. Ekta Funk Triglyceride [Mass/Vol] 143 mg/dL Normal <=150 [facility] Comment on above: Performed By: #### C VDTBH #### [facility] [address] [address] [address] Ekta Funk VLDL CALC 28.6 mg/dL Normal [facility] Comment on above: Performed By: #### C VDTBH #### [facility] [address] [place] [address] Dr. Ekta Funk PROF 14(COMP METB)on 023 Albumin [Mass/Vol] 2.8 g/dL Critically low 3.4-5.0 [facility] Comment on above: Performed By: #### C VDTBH #### [facility] [address] [place] [address] Dr. Ekta Funk Albumin/Globulin [Mass ratio] 0.7 {ratio} Normal [facility] Comment on above: Performed By: #### C VDTBH #### [facility] [address] [place] [address] Dr. Ekta Funk ALP [Catalytic activity/Vol] 90 U/L Normal 46-116 [facility] Comment on above: Performed By: #### C VDTBH #### [facility] [address] [place] [address] Dr. Ekta Funk ALT [Catalytic activity/Vol] 26 U/L Normal 14-59 [facility] Comment on above: Performed By: #### C VDTBH #### [facility] [address] [place] [address] Dr. Ekta Funk Anion gap [Moles/Vol] 14.5 mmol/L Normal [facility] Comment on above: Performed By: #### C VDTBH #### [facility] [address] [address] [address] Ekta Funk AST [Catalytic activity/Vol] 14 U/L Critically low 15-37 [facility] Comment on above: Performed By: #### C VDTBH #### [facility] [address] [place] [address] Dr. Ekta Funk Bilirubin [Mass/Vol] 0.4 mg/dL Normal 0.2-1.0 [facility] Comment on above: Performed By: #### C VDTBH #### [facility] [address] [place] [address] Dr. Ekta Funk Calcium [Mass/Vol] 8.9 mg/dL Normal 8.5-10.1 [facility] Comment on above: Performed By: #### C VDTBH #### [facility] [address] [place] [address] Dr. Ekta Funk Chloride [Moles/Vol] 106 mmol/L Normal 98-107 [facility] Comment on above: Performed By: #### C VDTBH #### [facility] [address] [place] [address] Dr. Ekta Funk CO2 [Moles/Vol] 23.5 mmol/L Normal 21.0-32.0 [facility] Comment on above: Performed By: #### C VDTBH #### [facility] [address] [place] [address] Dr. Ekta Funk Creatinine [Mass/Vol] 1.70 mg/dL Critically high 0.55-1.02 [facility] Comment on above: Performed By: #### C VDTBH #### [facility] [address] [address] [address] Ekta Funk EGFR-AF CONGOLESE 36 mL/min/1.73m2 Critically low >=60 [facility] Comment on above: Performed By: #### C VDTBH #### [facility] [address] [address] [address] Ekta Funk EGFR-NON AF CONGOLESE 29 mL/min/1.73m2 Critically low >=60 [facility] Comment on above: Performed By: #### C VDTBH #### [facility] [address] [address] [address] Ekta Funk Globulin (S) [Mass/Vol] 4.0 g/dL Normal [facility] Comment on above: Performed By: #### C VDTBH #### [facility] [address] [place] [address] Dr. Ekta Funk Glucose [Mass/Vol] 99 mg/dL Normal 74-106 [facility] Comment on above: Performed By: #### C VDTBH #### [facility] [address] [place] [address] Dr. Ekta Funk Potassium [Moles/Vol] 5.0 mmol/L Normal 3.5-5.1 [facility] Comment on above: Performed By: #### C VDTBH #### [facility] [address] [place] [address] Dr. Ekta Funk Protein [Mass/Vol] 6.8 g/dL Normal 6.4-8.2 [facility] Comment on above: Performed By: #### C VDTBH #### [facility] [address] [place] [address] Dr. Ekta Funk Sodium [Moles/Vol] 139 mmol/L Normal 136-145 [facility] Comment on above: Performed By: #### C VDTBH #### [facility] [address] [place] [address] Dr. Ekta Funk Urea nitrogen [Mass/Vol] 36.0 mg/dL Critically high 7.0-18.0 [facility] Comment on above: Performed By: #### C VDTBH #### [facility] [address] [place] [address] Dr. Ekta Funk Urea nitrogen/Creatinine [Mass ratio] 21.2 mg/mg Normal [facility] Comment on above: Performed By: #### C VDTB #### [facility] [address] [place] [address] Dr. Ekta Funk TSHon 10-18-2022 TSH 0.910 uIU/mL Normal 0.358-3.740 [facility] Comment on above: Performed By: #### C VDTB #### [facility] [address] [place] [address] Dr. Ekta Funk Covid-19 PCR ([facility])on 09-10 SARS-CoV-2 (COVID-19) RNA GANESH+probe Ql (Unsp spec) Detected Abnormal NOT DETECTED [facility] Comment on above: Result Comment: This test is not yet approved or cleared by the [place] FDA. When there are no FDA-approved or cleared tests available, and other criteria are met, FDA can make tests available under an emergency access mechanism called an Emergency Use Authorization (EUA). The EUA for this test is supported by the [facility] Director of Health and Human Service's declaration that [...] used). Performed By: #### C MP #### [facility] [address] [place] [address] Dr. Ekta Funk INFLUENZA A AND B AGon 09-25 INFLUANEGH SEE BELOW Normal [facility] Comment on above: Result Comment: Nega tive for Flu A protein angiten. Infection due to Flu A cannot be ruled out. Flu A angiten in the sample may be below the detection limit of the test. Performed By: #### B 12FOL, VITAD, IRON #### [facility] [address] [place] [address] Dr. Ekta Funk INFLUBNEGH SEE BELOW Normal [facility] Comment on above: Result Comment: Nega tive for Flu B protein antigen. Infection due to Flu B cannot be ruled out. Flu B antigen in the sample may be below the detection limit of the test. Performed By: #### B 12FOL, VITAD, IRON #### [facility] [address] [address] [address] Ekta Funk INFLUENZA A AG Negative Normal NEGATIVE SEE COMMENT [facility] Comment on above: Performed By: #### B 12FOL, VITAD, IRON #### [facility] [address] [address] [address] Ekta Funk INFLUENZA B AG Negative Normal NEGATIVE SEE COMMENT [facility] Comment on above: Performed By: #### B 12FOL, VITAD, IRON #### [facility] [address] [address] [address] Ekta Funk US CAROTID ART BILon [...] by: GODWIN BECK Date: 2022-05-26 16:06 Normal [facility] MRI BRAIN WO CONon 2 MRI BRAIN WO CON EXAMINATION: MRI BRAIN [...] by: VISHNU MARIE Date: 2022-05-25 10:45 Normal [facility] ECHOCARDIO M/2D COMPLETEon 0 05-24-2022 ECHOCARDIO M/2D COMPLETE Patient: SHEILA MAC Exam Date: 05/24/2022 : 1950 Gender:F Ordering : DR KRZYSZTOF HARP . Admission #: [id number] Family : Order #: [id number] CLICK HERE TO VIEW EXAM ECHOCARDIOGRAM REPORT [...] M.D. on 05/24/2022 at 14:45 Normal [facility] BASIC METABOLIC PANELon 11-08 Calcium mass conc 9.4 mg/dL Normal 8.6-10.3 [facility] Comment on above: Order Comment: No: D o not add to previous draw Performed By: #### 0 0071 #### [facility] [address] [place] [address], [place] Chloride molar conc 108 mmol/L High 98-[address] [facility] Comment on above: Order Comment: No: D o not add to previous draw Performed By: #### 0 0071 #### [facility] [address] [place] [address], [place] CO2 molar conc 22 mmol/L Normal 21-31 [facility] Comment on above: Order Comment: No: D o not add to previous draw Performed By: #### 0 0071 #### [facility] [address] [place] [address], [place] Creatinine mass conc 1.18 mg/dL Normal 0.60-1.20 [facility] Comment on above: Order Comment: No: D o not add to previous draw Performed By: #### 0 0071 #### [facility] [address] [place] [address], [place] GFR/1.73 sq M predicted among blacks MDRD vol rate/area (S/P/Bld) 55 ml/min/1.73sq m Abnormal >60 [facility] Comment on above: Order Comment: No: D o not add to previous draw Performed By: #### 0 0071 #### [facility] [address] [place] [address], [place] GFR/1.73 sq M predicted among non-blacks MDRD vol rate/area (S/P/Bld) 45 ml/min/1.73sq m Abnormal >60 [facility] Comment on above: Order Comment: No: D o not add to previous draw Performed By: #### 0 0071 #### [facility] [address] [place] [address], [place] Glucose mass conc 166 mg/dL High 70-100 [facility] Comment on above: Order Comment: No: D o not add to previous draw Performed By: #### 0 0071 #### [facility] [address] [place] [address], [facility] Potassium molar conc 4.1 mmol/L Normal 3.5-5.1 [facility] Comment on above: Order Comment: No: D o not add to previous draw Performed By: #### 0 0071 #### [facility] [address] [place] [address], [facility] Sodium molar conc 140 mmol/L Normal 136-145 [facility] Comment on above: Order Comment: No: D o not add to previous draw Performed By: #### 0 0071 #### [facility] [address] [place] [address], [facility] Urea nitrogen mass conc 21 mg/dL Normal 7-25 [facility] Comment on above: Order Comment: No: D o not add to previous draw Performed By: #### 0 0071 #### [facility] [address] [place] [address], [facility] CBC COMPLETE BLOOD COUNTon 0 - Erythrocyte distribution width Ratio (RBC) 12.9 % Normal 11.5-15.0 [facility] Comment on above: Order Comment: No: D o not add to previous draw Performed By: #### 5 [id number] #### [facility] [address] [place] [address], [facility] Hematocrit Volume Fraction (Bld) 36.7 % Normal 36.0-45.0 [facility] Comment on above: Order Comment: No: D o not add to previous draw Performed By: #### 5 [id number] #### [facility] [address] [place] [address], [facility] Hemoglobin mass conc (Bld) 12.4 g/dL Normal 12.0-15.0 [facility] Comment on above: Order Comment: No: D o not add to previous draw Performed By: #### 5 0608 #### [facility] [address] [place] [address], [facility] MCH Entitic mass (RBC) 31.2 pg Normal 27.0-33.0 [facility] Comment on above: Order Comment: No: D o not add to previous draw Performed By: #### 5 0608 #### [facility] [address] [place] [address], [facility] MCHC mass conc (RBC) 33.8 g/dL Normal 32.0-35.0 [facility] Comment on above: Order Comment: No: D o not add to previous draw Performed By: #### 5 0608 #### [facility] [address] [place] [address], [facility] MCV Entitic volume (RBC) 92.4 fL Normal 82.0-98.0 [facility] Comment on above: Order Comment: No: D o not add to previous draw Performed By: #### 5 0608 #### [facility] [address] [place] [address], [facility] Nucleated RBC/100 WBC Ratio (Bld) 0 % Normal 0-0 [facility] Comment on above: Order Comment: No: D o not add to previous draw Performed By: #### 5 0608 #### [facility] [address] [place] [address], [facility] PLAT CNT 227 10*3/uL Normal 150-400 [facility] Comment on above: Order Comment: No: D o not add to previous draw Performed By: #### 5 0608 #### [facility] [address] [place] [address], [facility] RBC #/vol (Bld) 3.97 10*6/uL Normal 3.80-5.00 [facility] Comment on above: Order Comment: No: D o not add to previous draw Performed By: #### 5 0608 #### [facility] [address] [place] [address], [facility] WBC #/vol (Bld) 5.55 10*3/uL Normal 4.00-10.60 [facility] Comment on above: Order Comment: No: D o not add to previous draw Performed By: #### 5 [id number] #### [facility] [address] Cardiovascular Lab Reporton 11-20-2018 Cardiovascular Lab Report [facility] Patient Name: Bubba [facility] Sheila MR #: [id number] Department of Physician: [facility] Shellie Gaspar M.D. Division of Service Date: 11/20/2018 Cardiology Birthdate: 1950 Adult Cardiovascular Room #: 3AB [id number] [facility] [address] [place] [address] Cardiovascular Laboratory Report INDICATION: The patient is a 68-year-old woman who was evaluated in Cardiology Clinic because of new onset symptoms of shortness of breath on mild exertion. Her stress test showed evidence of [id number] area of inferoapical ischemia; because of that, she was referred for cardiac catheterization. PROCEDURES: 1. Right heart catheterization. 2. Bilateral selective coronary angiography. 3. Limited right femoral angiography. METHOD: Procedure was explained patient with risks and benefits. She signed informed consent. She was brought to labor contract analyst in a fasting state. The right groin area was prepped and draped in usual fashion. Using micropuncture technique, the right common femoral artery was accessed. The inner cannula was advanced. Limited femoral angiography was performed followed by upsizing to a 6-Slovak x 11 cm sheath. Access was also obtained using the same technique in the right common femoral vein and a 6-Slovak x 11 cm sheath was placed. A 6-Slovak Michel catheter was used for right heart catheterization with measurement of pressures and calculation of cardiac output using the estimated Ivory method. Michel catheter was removed. Bilateral selective coronary angiography was then performed using 6-Slovak JL4 and JR4 diagnostic catheters. Catheters were [...] Cyndy/Bong Gaspar M.D. Date Trans: 11/20/2018 09:31 A/alvina [id number] cc: Krzysztof Harp M.D. [address] [facility] [id number] Normal [facility] BASIC METABOLIC PANELon 11-08 Calcium mass conc 9.5 mg/dL Normal 8.6-10.3 The [facility] Comment on above: Order Comment: No: D o not add to previous draw Performed By: #### 0 0071 #### [facility] [address] [place] [address], [facility] Chloride molar conc 105 mmol/L Normal 98-[address] [facility] Comment on above: Order Comment: No: D o not add to previous draw Performed By: #### 0 0071 #### [facility] [address] [place] [address], [place] CO2 molar conc 24 mmol/L Normal 21-31 The [facility] Comment on above: Order Comment: No: D o not add to previous draw Performed By: #### 0 0071 #### [facility] [address] [place] [address], [place] Creatinine mass conc 1.42 mg/dL High 0.60-1.20 [facility] Comment on above: Order Comment: No: D o not add to previous draw Performed By: #### 0 0071 #### [facility] [address] [place] [address], [place] GFR/1.73 sq M predicted among blacks MDRD vol rate/area (S/P/Bld) 45 ml/min/1.73sq m Abnormal >60 The [facility] Comment on above: Order Comment: No: D o not add to previous draw Performed By: #### 0 0071 #### [facility] [address] [place] [address], [place] GFR/1.73 sq M predicted among non-blacks MDRD vol rate/area (S/P/Bld) 36 ml/min/1.73sq m Abnormal >60 [facility] Comment on above: Order Comment: No: D o not add to previous draw Performed By: #### 0 0071 #### [facility] [address] [place] [address], [place] Glucose mass conc 86 mg/dL Normal 70-100 The [facility] Comment on above: Order Comment: No: D o not add to previous draw Performed By: #### 0 0071 #### [facility] [address] [place] [address], [facility] Potassium molar conc 4.2 mmol/L Normal 3.5-5.1 [facility] Comment on above: Order Comment: No: D o not add to previous draw Performed By: #### 0 0071 #### [facility] [address] [place] [address], [facility] Sodium molar conc 138 mmol/L Normal 136-145 [facility] Comment on above: Order Comment: No: D o not add to previous draw Performed By: #### 0 0071 #### [facility] [address] [place] [id number], [facility] Urea nitrogen mass conc 19 mg/dL Normal 7-25 [facility] Comment on above: Order Comment: No: D o not add to previous draw Performed By: #### 0 0071 #### [facility] [address] CBC COMPLETE BLOOD COUNTon 0 - Erythrocyte distribution width Ratio (RBC) 13.0 % Normal 11.5-15.0 [facility] Comment on above: Order Comment: No: D o not add to previous draw Performed By: #### 5 0608 #### [facility] [address] [place] [address], [facility] Hematocrit Volume Fraction (Bld) 38.3 % Normal 36.0-45.0 [facility] Comment on above: Order Comment: No: D o not add to previous draw Performed By: #### 5 0608 #### [facility] [address] [place] [id number], [facility] Hemoglobin mass conc (Bld) 12.6 g/dL Normal 12.0-15.0 [facility] Comment on above: Order Comment: No: D o not add to previous draw Performed By: #### 5 0608 #### [facility] [address] [place] [id number], [facility] MCH Entitic mass (RBC) 31.1 pg Normal 27.0-33.0 [facility] Comment on above: Order Comment: No: D o not add to previous draw Performed By: #### 5 0608 #### [facility] [address] MCHC mass conc (RBC) 32.9 g/dL Normal 32.0-35.0 [facility] Comment on above: Order Comment: No: D o not add to previous draw Performed By: #### 5 0608 #### [facility] [address] MCV Entitic volume (RBC) 94.6 fL Normal 82.0-98.0 [facility] Comment on above: Order Comment: No: D o not add to previous draw Performed By: #### 5 0608 #### [facility] [address] [facility]. [address] Nucleated RBC/100 WBC Ratio (Bld) 0 % Normal 0-0 [facility] Comment on above: Order Comment: No: D o not add to previous draw Performed By: #### 5 0608 #### [facility] [address] [facility] [place] [address], [facility] PLAT CNT 266 10*3/uL Normal 150-400 The [facility] Comment on above: Order Comment: No: D o not add to previous draw Performed By: #### 5 0608 #### [facility] [address] [facility]. [address] RBC #/vol (Bld) 4.05 10*6/uL Normal 3.80-5.00 [facility] Comment on above: Order Comment: No: D o not add to previous draw Performed By: #### 5 0608 #### [facility] [address] WBC #/vol (Bld) 9.01 10*3/uL Normal 4.00-10.60 [facility] Comment on above: Order Comment: No: D o not add to previous draw Performed By: #### 5 0608 #### [facility] [address] PROTHROMBIN TIMEon 9 INR Coag RelTime (PPP) 1.07 {INR} Normal 0.91-1.16 [facility] Comment on above: Order Comment: [...] 1995;108:231S-246S. Performed By: #### 5 6101 #### [facility] [address] Prothrombin time (PT) Coag time (PPP) 13.9 s Normal 12.3-14.8 The [facility] Comment on above: Order Comment: No: D o not add to previous draw Result Comment: ALL RESULTS MUST BE INTERPRETED WITH RESPECT TO BLOOD DRAWING ARTIFACT OR DILUTION ERROR OF ANTICOAGULANT AT THE TIME OF SAMPLING. Performed By: #### 5 6101 #### [facility] [address] Encounters Encounter Date Encounter Type Care Provider Facility Start: 01-16-2023 [facility] SAMSA . Facility :[facility] Start: 01-15-2023 End: 01-15-2023 ambulatory APRIL CASTANEDA . Facility:[facility] Start: 01-10-2023 End: 01-11-[address] KRZYSZTOF HARP . Facility:[facility] Start: 12-15-2022 End: 12-15-2022 ambulatory APRIL CASTANEDA . Facility:[facility] Start: 12-15-2022 ambulatory RDORIGUEZ RIVERA [facility] Start: 12-05-2022 End: 12-06-[address] [...] End: 11-20-2018 Patient encounter procedure PROVIDER UNKNOWN Facility:[facility] Start: 11-13-2018 End: 11-14-2018 Patient encounter procedure DEFAULT PHYSICIAN Facility:[facility] Start: 10-31-2018 End: 11-01-2018 Patient encounter procedure DEFAULT PHYSICIAN Facility:[facility] Start: 09-23-2018 End: 09-24-2018 Patient encounter procedure DEFAULT PHYSICIAN Facility:[facility] Start: 09-05-2018 End: 09-06-2018 Patient encounter procedure DEFAULT PHYSICIAN Facility:[facility] Payers Date Payer Category Payer Unknown [id number] 1950 Unknown [id number] 2.16.8 40.1.758081.3.579.2.647 1950 Unknown [id number] 2.16.8 40.1.255553.3.579.2.647 1950 Unknown [id number] 2.16.8 40.1.006849.3.579.2.647 1950 Unknown [id number] 2.16.8 40.1.848636.3.579.2.647 1950 Unknown [id number] 2.16.8 40.1.142527.3.579.2.647 1950 Unknown [id number] 2.16.84 0.1.624031.3.579.2.593 1950 Unknown [id number] 2.16.84 0.1.301690.3.579.2.593 1950 Unknown [id number] 2.16.84 0.1.613009.3.579.2.593 1950 Unknown [id number] 2.16.84 0.1.145591.3.579.2.593 1950 Unknown [id number] 2.16.84 0.1.854552.3.579.2.593 1950 Unknown [id number] 2.16.84 0.1.465493.3.579.2.593 1948 Unknown [id number] 2.16.84 0.1.986606.3.579.2.593 1948 Unknown [id number] 2.16.84 0.1.877840.3.579.2.593 1948 Unknown [id number] 2.16.84 0.1.545939.3.579.2.593 1948 Unknown [id number] 2.16.84 0.1.814384.3.579.2.593 1948 Unknown [id number] 2.16.84 0.1.119879.3.579.2.593 1950 Unknown [id number] 2.16.84 0.1.319963.3.579.2.593 1948 Unknown [id number] 2.16.84 0.1.615349.3.579.2.593 1948 Unknown [id number] 2.16.84 0.1.684864.3.579.2.593 1948 Unknown [id number] 2.16.84 0.1.665320.3.579.2.593 1948 Unknown [id number] 2.16.84 0.1.973205.3.579.2.593 1948 Unknown [id number] 2.16.84 0.1.602994.3.579.2.593 1948 Unknown [id number] 2.16.84 0.1.215693.3.579.2.593 1950 Unknown [id number] 2.16.84 0.1.313810.3.579.2.593 Medicare [id number] Unknown Progress note 12-15-2022 Note Date & [...] She will be (more content not included)... [facility] Progress note 12-15-2022 Note Date & Type Note Facility 12-15-2022 Note Review of Systems Cardiovascular: Positive for leg swelling. Respiratory: Positive for shortness of breath. Skin: Positive for color change. Neurological: Positive for headaches. All other systems reviewed and are negative. [facility] Clinical Note 07-25-2022 Note Date [...] authenticated by: VISHNU MARIE Date: 2022-07-25 13:25 [facility] Clinical Note 05-11-2022 Note Date & [...] by: VISHNU MARIE Date: 2022-05-11 12:51 [facility] Clinical Note 02-14-2022 Note Date & Type Note Facility 02-14-2022 Note PROCEDURE: XR KNEE L T 4V or > COMPARISON: None. HISTORY: Osteoarthritis FINDINGS: BONES:No fracture, acute abnormality, or significant arthropathy. SOFT TISSUES:Negative. No visible soft tissue swelling. EFFUSION:Moderate suprapatellar joint effusion OTHER: Negative. IMPRESSION: Moderate joint effusion Electronically authenticated by: GODWIN BECK Date: 2022-02-14 17:30 [facility] Summary Purpose Family History No Family History Records FoundNo Family History Records FoundNo Family History Records Found Advance Directives No Advanced Directives Records FoundNo Advanced Directives Records FoundNo Advanced Directives Records Found Additional Source Comments INFORMATION SOURCE (unrecogn ized section and content) DATE CREATED AUTHOR 11/24/2018 [facility] DATE CREATED AUTHOR AUTHOR'S ORGANIZ ATION 12/19/2022 [facility] DATE CREATED AUTHOR AUTHOR'S ORGANIZ ATION 01/18/2023 [facility] FOR RECORDS PERTAINING TO PATIENTS WHO ARE [...] BE BASED ON THE PRIMARY CLINICAL RECORDS. [facility] [employer] [facility]. provides no warranty or guarantee of the accuracy or completeness of information in this document.
--- NOTE | 2023-12-27 08:54 | CT_ITS ---
[address] [address] Patient Name: EDIN SAMANIEGO MRN: [id number] date: 1950 Sex: F Assigned Patient Location: LAB Current Patient Location: LAB Accession/Order Number: [id number] Exam Date: 12/27/2023 09:58 Report Date: 12/27/2023 16:30 At the request of: KRZYSZTOF THOMPSON Procedure: CT abdomen pelvis wo con EXAMINATION: CT abdomen pelvis wo con HISTORY: Chronic Pancreatitis K86.1, Gastritis K29.50 ; lower abdominal pressure; difficult urination and bowel movements for 2 months COMPARISON: No relevant comparison available. TECHNIQUE: Axial, Coronal, and Sagittal images were obtained without and/or with IV contrast as indicated by examination type. Dose reduction techniques were achieved by using automated exposure control and/or adjustment of mA and/or kV according to patient size and/or use of iterative reconstruction technique. FINDINGS: LUNG BASES: No visible pulmonary or pleural disease. LIVER: No enlargement, atrophy, suspicious density, or significant focal lesion. BILIARY: No dilatation or calcification. PANCREAS: Poorly defined margins of the pancreas without surrounding edema/inflammatory changes. No abnormal duct dilation or appreciable stones or mass. SPLEEN: No enlargement or focal lesion. ADRENALS: No mass or enlargement. KIDNEYS: No mass, obstruction, or calcification. BOWEL/MESENTERY: Large diverticulum projecting from third portion of duodenum, 4.1 x 3.5 x 2.5 cm. Marked diverticulosis of descending and sigmoid colon without acute inflammatory changes. No visible mass, obstruction, or bowel wall thickening. AORTA/VASCULAR: No aneurysm or dissection. RETROPERITONEUM: No mass or adenopathy. LYMPH NODES: No adenopathy. URINARY BLADDER: No visible focal wall thickening, lesion, or calculus. PELVIC ORGANS: Hysterectomy. ABDOMINAL WALL: Small paraumbilical fat filled hernia with wide neck and no strangulation or bowel involvement. BONES: Scoliotic curvature of lumbar spine and multilevel moderate-marked degenerative disc disease. OTHER: Negative. CT/CT abdomen pelvis wo con IMPRESSION: 1. Suspect acute pancreatitis. Correlate with lab values. 2. Large duodenal diverticulum without appreciable obstruction or inflammation. 3. Marked colonic diverticulosis without acute diverticulitis. 4. Small paraumbilical fat filled hernia without strangulation. Electronically authenticated by: DANIEL PINEDA Date: 12/27/2023 16:30
[2023-12-27 08:58] LABS: Estimated GFR (African America 23 (>=60); Estimated GFR (Non-African Ame 19 (>=60)
== END 2023-12-27 08:40 | disposition home or self-care (01) ==
LOC: LAB 08:40
PROVIDERS: PCP Family Medicine; Visit Provider Family Medicine
DX: Z79.899 Other long term (current) drug therapy (principal); K86.1 Other chronic pancreatitis; K29.50 Unspecified chronic gastritis without bleeding; K57.10 Diverticulosis of small intestine without perforation or abscess without bleeding; K57.30 Diverticulosis of large intestine without perforation or abscess without bleeding; K42.9 Umbilical hernia without obstruction or gangrene
CPT/HCPCS: 36415; 74176; 82565

== ENCOUNTER 2023-12-28 09:30 | Outpatient (OUT) | payer MEDICARE, SELFPAY ==
--- OUTSIDE RECORDS SUMMARY | 2023-12-28 09:41 | XMS_ITS | CCD ---
Author Organization [facility] Care Team Providers Care Hardware Manager Name Role Phone PHYSICIAN, DEFAULT Admitting Unavailable PHYSICIAN, DEFAULT Attending Unavailable MONTSE MARIA Primary Care Unavailable PHYSICIAN, DEFAULT Admitting Unavailable PHYSICIAN, DEFAULT Attending Unavailable MONSTE MARIA Primary Care Unavailable PHYSICIAN, DEFAULT Admitting [...] Unavailable HOY ., DR BLANKENSHIP Admitting Unavailable KIRAN, DR GODWIN [employer] Unavailable [...] Morphine; 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: [MORPHINE] Drug Allergy 7 [facility] Repository (3 sources) NSAIDs; 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: [NSAIDS (NON-STEROIDAL ANTI-INFLAMMATORY DRUG)] Drug allergy (disorder) 9 [facility] Repository (1 source) Penicillin Drug Allergy 9 [facility] Repository (1 source) predniSONE Drug Allergy 9 [facility] Repository (2 sources) Iodinated Contrast- Oral and IV Dye Drug allergy (disorder) 5 [facility] Repository (2 sources) Penicillins; 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: [PENICILLINS] Propensity to adverse reactions to drug (disorder) 5 [facility] Repository (1 source) IODINATED CONTRAST MEDIA; 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: [IODINATED CONTRAST MEDIA] Propensity to adverse reactions to drug (disorder) 3 [facility] Repository (1 source) levoFLOXacin Drug Allergy 3 [facility] Repository (1 source) meloxicam Drug Allergy 3 [facility] Rep[facility] Problems Active Problems Problem Classification [...] Onset: 01-17-2023 Chronic Other aftercare (2 sources) 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 B1, Whole Blood 118.1 nmol/L Normal 66.5-200.0 [facility] Comment on above: Performed By: #### C BC #### [facility] [address] [place] [address] Dr. Ekta Funk BNPon 01-10-2023 Natriuretic peptide B (Bld) [Mass/Vol] 980.0 pg/mL Critically high <=900.0 [facility] Comment on above: Performed By: #### C VDTBH #### [facility] [address] [place] [address] Dr. Ekta Funk CBC AUTO DIFFon 01-10-2023 BASO # 0.1 103/ul Normal 0.0-0.1 [facility] Comment on above: Performed By: #### C MP #### [facility] [address] [place] [address] Dr. Ekta Funk Basophils/100 WBC (Bld) 1.0 % Normal 0.2-2.0 [facility] Comment on above: Performed By: #### C MP #### [facility] [address] [place] [address] Dr. Ekta Funk EO # 0.4 103/ul Normal 0.0-0.7 [facility] Comment on above: Performed By: #### C MP #### [facility] [address] [place] [address] Dr. Ekta Funk Eosinophils/100 WBC (Bld) 3.7 % Normal 0.9-7.0 [facility] Comment on above: Performed By: #### C MP #### [facility] [address] [place] [address] Dr. Ekta Funk Erythrocyte distribution width (RBC) [Ratio] 13.2 % Normal 11.0-15.0 [facility] Comment on above: Performed By: #### C MP #### [facility] [address] [place] [address] Dr. Ekta Funk Hematocrit (Bld) [Volume fraction] 35.1 % Critically low 36.0-48.0 [facility] Comment on above: Performed By: #### C MP #### [facility] [address] [place] [address] Dr. Ekta Funk Hemoglobin (Bld) [Mass/Vol] 11.3 g/dL Critically low 12.0-16.0 [facility] Comment on above: Performed By: #### C MP #### [facility] [address] [place] [address] Dr. Ekta Funk IG # 0.04 10e3/ul Critically high 0.00-0.03 [facility] Comment on above: Performed By: #### C MP #### [facility] [address] [place] [address] Dr. Ekta Funk IG % 0.4 % Normal 0.0-0.5 [facility] Comment on above: Performed By: #### C MP #### [facility] [address] [place] [address] Dr. Ekta Funk LYMPH # 2.0 103/ul Normal 1.2-3.8 [facility] Comment on above: Performed By: #### C MP #### [facility] [address] [place] [address] Dr. Ekta Funk Lymphocytes/100 WBC (Bld) 20.8 % Normal 20.5-60.0 [facility] Comment on above: Performed By: #### C MP #### [facility] [address] [place] [address] Dr. Ekta Funk MANUAL DIFF REQ NO Normal [facility] Comment on above: Performed By: #### C MP #### [facility] [address] [place] [address] Dr. Ekta Funk MCH (RBC) [Entitic mass] 32.3 pg Normal 26.7-34.0 [facility] Comment on above: Performed By: #### C MP #### [facility] [address] [address] [address] Ekta Funk MCHC (RBC) [Mass/Vol] 32.2 g/dL Normal 29.9-35.2 [facility] Comment on above: Performed By: #### C MP #### [facility] [address] [address] [address] Ekta Funk MCV (RBC) [Entitic vol] 100.3 fL Critically high 81.0-99.0 [facility] Comment on above: Performed By: #### C MP #### [facility] [address] [place] [address] Dr. Ekat Funk MONO # 0.8 103/ul Normal 0.3-0.8 [facility] Comment on above: Performed By: #### C MP #### [facility] [address] [place] [address] Dr. Ekta Funk Monocytes/100 WBC (Bld) 7.9 % Normal 1.7-12.0 [facility] Comment on above: Performed By: #### C MP #### [facility] [address] [place] [address] Dr. Ekta Funk NEUT # 6.4 103/ul Normal 1.4-6.5 [facility] Comment on above: Performed By: #### C MP #### [facility] [address] [place] [address] Dr. Ekta Funk Neutrophils/100 WBC (Bld) 66.2 % Normal 43.0-75.0 [facility] Comment on above: Performed By: #### C MP #### [facility] [address] [place] [address] Dr. Ekta Funk Platelet mean volume (Bld) [Entitic vol] 9.6 fL Normal 9.5-13.5 [facility] Comment on above: Performed By: #### C MP #### [facility] [address] [place] [address] Dr. Ekta Funk PLT 255 103/ul Normal 150-450 [facility] Comment on above: Performed By: #### C MP #### [facility] [address] [address] [address] Ekta Funk RBC 3.50 106/ul Critically low 4.20-5.40 [facility] Comment on above: Performed By: #### C MP #### [facility] [address] [address] [address] Ekta Funk WBC 9.7 103/ul Normal 4.0-11.0 [facility] Comment on above: Performed By: #### C MP #### [facility] [address] [place] [address] Dr. Ekta Funk CRPon 01-10-2023 CRP [Mass/Vol] mg/L Normal <=1.0 [facility] Comment on above: Performed By: #### C BC #### [facility] [address] [place] [address] Dr. Ekta Funk FREE THYROXINE INDEX T7on FTI 2.62 Normal 1.30-4.50 [facility] Comment on above: Performed By: #### C BC #### [facility] [address] [place] [address] Dr. Ekta Funk T3U 32.0 % Normal 30.0-39.0 [facility] Comment on above: Performed By: #### C BC #### [facility] [address] [place] [address] Dr. Ekta Funk T4 [Mass/Vol] 8.20 ug/dL Normal 4.80-13.90 [facility] Comment on above: Performed By: #### C BC #### [facility] [address] [place] [address] Dr. Ekta Funk IRONon 01-10-2023 Iron [Mass/Vol] 61.0 ug/dL Normal 50.0-170.0 [facility] Comment on above: Performed By: #### B 12FOL, VITAD, IRON #### [facility] [address] [place] [address] Dr. Ekta Funk PROF 14(COMP METB)on 023 Albumin [Mass/Vol] 2.9 g/dL Critically low 3.4-5.0 [facility] Comment on above: Performed By: #### C VDTBH #### [facility] [address] [place] [address] Dr. Ekta Funk Albumin/Globulin [Mass ratio] 0.6 {ratio} Normal [facility] Comment on above: Performed By: #### C VDTBH #### [facility] [address] [place] [address] Dr. Ekta Funk ALP [Catalytic activity/Vol] 101 U/L Normal 46-116 [facility] Comment on above: Performed By: #### C VDTBH #### [facility] [address] [place] [address] Dr. Ekta Funk ALT [Catalytic activity/Vol] 16 U/L Normal 14-59 [facility] Comment on above: Performed By: #### C VDTBH #### [facility] [address] [place] [address] Dr. Ekta Funk Anion gap [Moles/Vol] 14.6 mmol/L Normal [facility] Comment on above: Performed By: #### C VDTBH #### [facility] [address] [place] [address] Dr. Ekta Funk AST [Catalytic activity/Vol] 15 U/L Normal 15-37 [facility] Comment on above: Performed By: #### C VDTBH #### [facility] [address] [place] [address] Dr. Ekta Funk Bilirubin [Mass/Vol] 0.4 mg/dL Normal 0.2-1.0 [facility] Comment on above: Performed By: #### C VDTBH #### [facility] [address] [place] [address] Dr. Ekta Funk Calcium [Mass/Vol] 9.2 mg/dL Normal 8.5-10.1 [facility] Comment on above: Performed By: #### C VDTBH #### [facility] [address] [place] [address] Dr. Ekta Funk Chloride [Moles/Vol] 107 mmol/L Normal 98-107 [facility] Comment on above: Performed By: #### C VDTBH #### [facility] [address] [address] [address] Ekta Funk CO2 [Moles/Vol] 24.4 mmol/L Normal 21.0-32.0 [facility] Comment on above: Performed By: #### C VDTBH #### [facility] [address] [place] [address] Dr. Ekta Funk Creatinine [Mass/Vol] 2.02 mg/dL Critically high 0.55-1.02 [facility] Comment on above: Performed By: #### C VDTBH #### [facility] [address] [place] [address] Dr. Ekta Funk EGFR-AF PUERTO RICAN 29 mL/min/1.73m2 Critically low >=60 [facility] Comment on above: Performed By: #### C VDTBH #### [facility] [address] [place] [address] Dr. Ekta Funk EGFR-NON AF PUERTO RICAN 24 mL/min/1.73m2 Critically low >=60 [facility] Comment on above: Performed By: #### C VDTBH #### [facility] [address] [place] [address] Dr. Ekta Funk Globulin (S) [Mass/Vol] 4.5 g/dL Normal [facility] Comment on above: Performed By: #### C VDTBH #### [facility] [address] [place] [address] Dr. Ekta Funk Glucose [Mass/Vol] 103 mg/dL Normal 74-106 [facility] Comment on above: Performed By: #### C VDTBH #### [facility] [address] [place] [address] Dr. Ekta Funk Potassium [Moles/Vol] 5.0 mmol/L Normal 3.5-5.1 [facility] Comment on above: Performed By: #### C VDTBH #### [facility] [address] [place] [address] Dr. Ekta Funk Protein [Mass/Vol] 7.4 g/dL Normal 6.4-8.2 [facility] Comment on above: Performed By: #### C VDTBH #### [facility] [address] [place] [address] Dr. Ekta Funk Sodium [Moles/Vol] 141 mmol/L Normal 136-145 [facility] Comment on above: Performed By: #### C VDTBH #### [facility] [address] [place] [address] Dr. Ekta Funk Urea nitrogen [Mass/Vol] 23.0 mg/dL Critically high 7.0-18.0 [facility] Comment on above: Performed By: #### C VDTBH #### [facility] [address] [place] [address] Dr. Ekta Funk Urea nitrogen/Creatinine [Mass ratio] 11.4 mg/mg Normal [facility] Comment on above: Performed By: #### C VDTBH #### [facility] [address] [place] [address] Dr. Ekta Funk TSHon 01-10-2023 TSH 1.793 uIU/mL Normal 0.358-3.740 [facility] Comment on above: Performed By: #### C VDTBH #### [facility] [address] [place] [address] Dr. Ekta Funk VIT B12 AND FOLATEon 023 Cobalamin (Vitamin B12) [Mass/Vol] 175.0 pg/mL Critically low 193.0-986.0 [facility] Comment on above: Performed By: #### B 12FOL, VITAD, IRON #### [facility] [address] [place] [address] Dr. Ekta Funk FOLATE 10.30 ng/mL Normal 8.60-58.90 [facility] Comment on above: Performed By: #### B 12FOL, VITAD, IRON #### [facility] [address] [place] [address] Dr. Ekta Funk VITAMIN D 25 OHon 01-10-2023 VIT D 25-OH 24.0 ng/mL Normal [facility] Comment on above: Performed By: #### B 12FOL, VITAD, IRON #### [facility] [address] [place], [place] [address] Dr. Ekta Funk VIT D RANGES SEE BELOW Normal [facility] Comment on above: Result Comment: <20 ng/mL Vit D deficient 20 - <30 ng/mL Vit D insufficient 30 - 100 ng/mL Vit D sufficient >100 ng/mL Potential Toxicity Performed By: #### B 12FOL, VITAD, IRON #### [facility] [address] [place], [place] [address] Dr. Ekta Funk Office Visiton 12-15-2022 Follow-up visit [id number] Sheila Mac 1950 F Date Provider Department Center 12/15/2022 [id number] RIVERA [facility] No family history on file Level of Service:31053 OR OFFICE/OUTPATIENT ESTABLISHED MOD MDM 30-39 MIN Reason for Visit and Comments: Follow-up [342694] - Is here f/u stress test pt states she had Bruises all over both legs symptoms stated a week ago also stated legs are swollen and burning Normal [facility] NM STRESS/REST MULTIon 12-05 NM STRESS/REST MULTI Patient: SHEILA MAC Exam Date: 12/05/2022 : 1950 Gender:F Ordering : DR KRZYSZTOF HARP . Admission #: [id number] Family : Order #: [id number] CLICK HERE TO VIEW EXAM RADIOLOGY REPORT [...] Marie M.D. on 12/06/2022 at 07:26 Normal [facility] ECHOCARDIO M/2D COMPLETEon 0 11-27-2022 ECHOCARDIO M/2D COMPLETE Patient: SHEILA MAC Exam Date: 11/27/2022 : 1950 Gender:F Ordering : DR KRZYSZTOF HARP . Admission #: [id number] Family : Order #: [id number] CLICK HERE TO VIEW EXAM ECHOCARDIOGRAM REPORT [...] M.D. on 11/27/2022 at 14:39 Normal [facility] CBC AUTO DIFFon 11-26-2022 BASO # 0.0 103/ul Normal 0.0-0.1 [facility] Comment on above: Performed By: #### I NSULIN #### [facility] [address] [address] [address] Ekta Funk Basophils/100 WBC (Bld) 0.6 % Normal 0.2-2.0 [facility] Comment on above: Performed By: #### I NSULIN #### [facility] [address] [address] [address] Ekta Funk EO # 0.3 103/ul Normal 0.0-0.7 [facility] Comment on above: Performed By: #### I NSULIN #### [facility] [address] [address] [address] Ekta Funk Eosinophils/100 WBC (Bld) 4.8 % Normal 0.9-7.0 [facility] Comment on above: Performed By: #### I NSULIN #### [facility] [address] [address] [address] Ekta Funk Erythrocyte distribution width (RBC) [Ratio] 13.3 % Normal 11.0-15.0 [facility] Comment on above: Performed By: #### I NSULIN #### [facility] [address] [address] [address] Ekta Funk Hematocrit (Bld) [Volume fraction] 29.1 % Critically low 36.0-48.0 [facility] Comment on above: Performed By: #### I NSULIN #### [facility] [address] [address] [address] Ekta Funk Hemoglobin (Bld) [Mass/Vol] 9.5 g/dL Critically low 12.0-16.0 [facility] Comment on above: Performed By: #### I NSULIN #### [facility] [address] [place] [address] Dr. Ekta Funk IG # 0.07 10e3/ul Critically high 0.00-0.03 [facility] Comment on above: Performed By: #### I NSULIN #### [facility] [address] [place] [address] Dr. Ekta Funk IG % 1.0 % Critically high 0.0-0.5 [facility] Comment on above: Performed By: #### I NSULIN #### [facility] [address] [place] [address] Dr. Ekta Funk LYMPH # 1.2 103/ul Normal 1.2-3.8 [facility] Comment on above: Performed By: #### I NSULIN #### [facility] [address] [place] [address] Dr. Ekta Funk Lymphocytes/100 WBC (Bld) 17.2 % Critically low 20.5-60.0 [facility] Comment on above: Performed By: #### I NSULIN #### [facility] [address] [place] [address] Dr. Ekta Funk MANUAL DIFF REQ NO Normal [facility] Comment on above: Performed By: #### I NSULIN #### [facility] [address] [place] [address] Dr. Ekta Funk MCH (RBC) [Entitic mass] 31.7 pg Normal 26.7-34.0 [facility] Comment on above: Performed By: #### I NSULIN #### [facility] [address] [place] [address] Dr. Ekta Funk MCHC (RBC) [Mass/Vol] 32.6 g/dL Normal 29.9-35.2 [facility] Comment on above: Performed By: #### I NSULIN #### [facility] [address] [place] [address] Dr. Ekta Funk MCV (RBC) [Entitic vol] 97.0 fL Normal 81.0-99.0 [facility] Comment on above: Performed By: #### I NSULIN #### [facility] [address] [place] [address] Dr. Ekta Funk MONO # 0.8 103/ul Normal 0.3-0.8 [facility] Comment on above: Performed By: #### I NSULIN #### [facility] [address] [place] [address] Dr. Ekta Funk Monocytes/100 WBC (Bld) 11.1 % Normal 1.7-12.0 [facility] Comment on above: Performed By: #### I NSULIN #### [facility] [address] [place] [address] Dr. Ekta Funk NEUT # 4.5 103/ul Normal 1.4-6.5 [facility] Comment on above: Performed By: #### I NSULIN #### [facility] [address] [place] [address] Dr. Ekta Funk Neutrophils/100 WBC (Bld) 65.3 % Normal 43.0-75.0 [facility] Comment on above: Performed By: #### I NSULIN #### [facility] [address] [place] [address] Dr. Ekta Funk Platelet mean volume (Bld) [Entitic vol] 9.4 fL Critically low 9.5-13.5 [facility] Comment on above: Performed By: #### I NSULIN #### [facility] [address] [place] [address] Dr. Ekta Funk PLT 263 103/ul Normal 150-450 [facility] Comment on above: Performed By: #### I NSULIN #### [facility] [address] [place] [address] Dr. Ekta Funk RBC 3.00 106/ul Critically low 4.20-5.40 [facility] Comment on above: Performed By: #### I NSULIN #### [facility] [address] [place] [address] Dr. Ekta Funk WBC 6.9 103/ul Normal 4.0-11.0 [facility] Comment on above: Performed By: #### I NSULIN #### [facility] [address] [address] [address] Ekta Funk PROF 14(COMP METB)on 023 Albumin [Mass/Vol] 2.2 g/dL Critically low 3.4-5.0 [facility] Comment on above: Performed By: #### C MP #### [facility] [address] [address] [address] Ekta Funk Albumin/Globulin [Mass ratio] 0.6 {ratio} Normal [facility] Comment on above: Performed By: #### C MP #### [facility] [address] [place] [address] Dr. Ekta Funk ALP [Catalytic activity/Vol] 82 U/L Normal 46-116 [facility] Comment on above: Performed By: #### C MP #### [facility] [address] [place] [address] Dr. Ekta Funk ALT [Catalytic activity/Vol] 13 U/L Critically low 14-59 [facility] Comment on above: Performed By: #### C MP #### [facility] [address] [address] [address] Ekta Funk Anion gap [Moles/Vol] 14.0 mmol/L Normal [facility] Comment on above: Performed By: #### C MP #### [facility] [address] [place] [address] Dr. Ekta Funk AST [Catalytic activity/Vol] 18 U/L Normal 15-37 [facility] Comment on above: Performed By: #### C MP #### [facility] [address] [address] [address] Ekta Funk Bilirubin [Mass/Vol] 0.4 mg/dL Normal 0.2-1.0 [facility] Comment on above: Performed By: #### C MP #### [facility] [address] [place] [address] Dr. Ekta Funk Calcium [Mass/Vol] 8.6 mg/dL Normal 8.5-10.1 [facility] Comment on above: Performed By: #### C MP #### [facility] [address] [address] [address] Ekta Funk Chloride [Moles/Vol] 108 mmol/L Critically high 98-107 [facility] Comment on above: Performed By: #### C MP #### [facility] [address] [address] [address] Ekta Funk CO2 [Moles/Vol] 19.6 mmol/L Critically low 21.0-32.0 [facility] Comment on above: Performed By: #### C MP #### [facility] [address] [address] [address] Ekta Funk Creatinine [Mass/Vol] 1.70 mg/dL Critically high 0.55-1.02 [facility] Comment on above: Performed By: #### C MP #### [facility] [address] [address] [address] Ekta Funk EGFR-AF PUERTO RICAN 36 mL/min/1.73m2 Critically low >=60 [facility] Comment on above: Performed By: #### C MP #### [facility] [address] [address] [address] Ekta Funk EGFR-NON AF PUERTO RICAN 29 mL/min/1.73m2 Critically low >=60 [facility] Comment on above: Performed By: #### C MP #### [facility] [address] [address] [address] Ekta Funk Globulin (S) [Mass/Vol] 3.6 g/dL Normal [facility] Comment on above: Performed By: #### C MP #### [facility] [address] [address] [address] Ekta Funk Glucose [Mass/Vol] 103 mg/dL Normal 74-106 [facility] Comment on above: Performed By: #### C MP #### [facility] [address] [address] [address] Ekta Funk Potassium [Moles/Vol] 4.6 mmol/L Normal 3.5-5.1 [facility] Comment on above: Performed By: #### C MP #### [facility] [address] [place] [address] Dr. Ekta Funk Protein [Mass/Vol] 5.8 g/dL Critically low 6.4-8.2 [facility] Comment on above: Performed By: #### C MP #### [facility] [address] [place] [address] Dr. Ekta Funk Sodium [Moles/Vol] 137 mmol/L Normal 136-145 [facility] Comment on above: Performed By: #### C MP #### [facility] [address] [place] [address] Dr. Ekta Funk Urea nitrogen [Mass/Vol] 26.0 mg/dL Critically high 7.0-18.0 [facility] Comment on above: Performed By: #### C MP #### [facility] [address] [place] [address] Dr. Ekta Funk Urea nitrogen/Creatinine [Mass ratio] 15.3 mg/mg Normal [facility] Comment on above: Performed By: #### C MP #### [facility] [address] [place] [address] Dr. Ekta Funk CBC AUTO DIFFon 11-25-2022 BASO # 0.1 103/ul Normal 0.0-0.1 [facility] Comment on above: Performed By: #### C BC #### [facility] [address] [place] [address] Dr. Ekta Funk Basophils/100 WBC (Bld) 0.7 % Normal 0.2-2.0 [facility] Comment on above: Performed By: #### C BC #### [facility] [address] [place] [address] Dr. Ekta Funk EO # 0.3 103/ul Normal 0.0-0.7 [facility] Comment on above: Performed By: #### C BC #### [facility] [address] [place] [address] Dr. Ekta Funk Eosinophils/100 WBC (Bld) 3.4 % Normal 0.9-7.0 [facility] Comment on above: Performed By: #### C BC #### [facility] [address] [address] [address] Ekta Funk Erythrocyte distribution width (RBC) [Ratio] 13.6 % Normal 11.0-15.0 [facility] Comment on above: Performed By: #### C BC #### [facility] [address] [place] [address] Dr. Ekta Funk Hematocrit (Bld) [Volume fraction] 32.1 % Critically low 36.0-48.0 [facility] Comment on above: Performed By: #### C BC #### [facility] [address] [place] [address] Dr. Ekta Funk Hemoglobin (Bld) [Mass/Vol] 10.3 g/dL Critically low 12.0-16.0 [facility] Comment on above: Performed By: #### C BC #### [facility] [address] [place] [address] Dr. Ekta Funk IG # 0.08 10e3/ul Critically high 0.00-0.03 [facility] Comment on above: Performed By: #### C BC #### [facility] [address] [place] [address] Dr. Ekta Funk IG % 0.9 % Critically high 0.0-0.5 [facility] Comment on above: Performed By: #### C BC #### [facility] [address] [place] [address] Dr. Ekta Funk LYMPH # 0.9 103/ul Critically low 1.2-3.8 [facility] Comment on above: Performed By: #### C BC #### [facility] [address] [place] [address] Dr. Ekta Funk Lymphocytes/100 WBC (Bld) 10.7 % Critically low 20.5-60.0 [facility] Comment on above: Performed By: #### C BC #### [facility] [address] [place] [address] Dr. Ekta Funk MANUAL DIFF REQ NO Normal [facility] Comment on above: Performed By: #### C BC #### [facility] [address] [place] [address] Dr. Ekta Funk MCH (RBC) [Entitic mass] 32.2 pg Normal 26.7-34.0 [facility] Comment on above: Performed By: #### C BC #### [facility] [address] [place] [address] Dr. Ekta Funk MCHC (RBC) [Mass/Vol] 32.1 g/dL Normal 29.9-35.2 [facility] Comment on above: Performed By: #### C BC #### [facility] [address] [place] [address] Dr. Ekta Funk MCV (RBC) [Entitic vol] 100.3 fL Critically high 81.0-99.0 [facility] Comment on above: Performed By: #### C BC #### [facility] [address] [place] [address] Dr. Ekta Funk MONO # 0.9 103/ul Critically high 0.3-0.8 [facility] Comment on above: Performed By: #### C BC #### [facility] [address] [place] [address] Dr. Ekta Funk Monocytes/100 WBC (Bld) 9.9 % Normal 1.7-12.0 [facility] Comment on above: Performed By: #### C BC #### [facility] [address] [place] [address] Dr. Ekta Funk NEUT # 6.4 103/ul Normal 1.4-6.5 [facility] Comment on above: Performed By: #### C BC #### [facility] [address] [place] [address] Dr. Ekta Funk Neutrophils/100 WBC (Bld) 74.4 % Normal 43.0-75.0 [facility] Comment on above: Performed By: #### C BC #### [facility] [address] [place] [address] Dr. Ekta Funk Platelet mean volume (Bld) [Entitic vol] 9.5 fL Normal 9.5-13.5 [facility] Comment on above: Performed By: #### C BC #### [facility] [address] [address] [address] Ekta Funk PLT 267 103/ul Normal 150-450 [facility] Comment on above: Performed By: #### C BC #### [facility] [address] [place] [address] Dr. Ekta Funk RBC 3.20 106/ul Critically low 4.20-5.40 [facility] Comment on above: Performed By: #### C BC #### [facility] [address] [place] [address] Dr. Ekta Funk WBC 8.6 103/ul Normal 4.0-11.0 [facility] Comment on above: Performed By: #### C BC #### [facility] [address] [place] [address] Dr. Ekta Funk BASO # 0.1 103/ul Normal 0.0-0.1 [facility] Comment on above: Performed By: #### C MP #### [facility] [address] [place] [address] Dr. Ekta Funk Basophils/100 WBC (Bld) 0.7 % Normal 0.2-2.0 [facility] Comment on above: Performed By: #### C MP #### [facility] [address] [place] [address] Dr. Ekta Funk EO # 0.3 103/ul Normal 0.0-0.7 [facility] Comment on above: Performed By: #### C MP #### [facility] [address] [place] [address] Dr. Ekta Funk Eosinophils/100 WBC (Bld) 3.9 % Normal 0.9-7.0 [facility] Comment on above: Performed By: #### C MP #### [facility] [address] [place] [address] Dr. Ekta Funk Erythrocyte distribution width (RBC) [Ratio] 13.2 % Normal 11.0-15.0 [facility] Comment on above: Performed By: #### C MP #### [facility] [address] [place], [place] [id number] Dr. Ekta Funk Hematocrit (Bld) [Volume fraction] 28.0 % Critically low 36.0-48.0 [facility] Comment on above: Performed By: #### C MP #### [facility] [address] [place] [address] Dr. Ekta Funk Hemoglobin (Bld) [Mass/Vol] 9.3 g/dL Critically low 12.0-16.0 [facility] Comment on above: Performed By: #### C MP #### [facility] [address] [place] [address] Dr. Ekta Funk IG # 0.08 10e3/ul Critically high 0.00-0.03 [facility] Comment on above: Performed By: #### C MP #### [facility] [address] [place] [address] Dr. Ekta Funk IG % 1.1 % Critically high 0.0-0.5 [facility] Comment on above: Performed By: #### C MP #### [facility] [address] [place] [address] Dr. Ekta Funk LYMPH # 0.9 103/ul Critically low 1.2-3.8 [facility] Comment on above: Performed By: #### C MP #### [facility] [address] [place] [address] Dr. Ekta Funk Lymphocytes/100 WBC (Bld) 12.1 % Critically low 20.5-60.0 [facility] Comment on above: Performed By: #### C MP #### [facility] [address] [place] [address] Dr. Ekta Funk MANUAL DIFF REQ NO Normal [facility] Comment on above: Performed By: #### C MP #### [facility] [address] [place] [address] Dr. Ekta Funk MCH (RBC) [Entitic mass] 32.0 pg Normal 26.7-34.0 [facility] Comment on above: Performed By: #### C MP #### [facility] [address] [place] [address] Dr. Ekta Funk MCHC (RBC) [Mass/Vol] 33.2 g/dL Normal 29.9-35.2 [facility] Comment on above: Performed By: #### C MP #### [facility] [address] [place] [address] Dr. Ekta Funk MCV (RBC) [Entitic vol] 96.2 fL Normal 81.0-99.0 [facility] Comment on above: Performed By: #### C MP #### [facility] [address] [place] [address] Dr. Ekta Funk MONO # 0.7 103/ul Normal 0.3-0.8 [facility] Comment on above: Performed By: #### C MP #### [facility] [address] [place] [address] Dr. Ekta Funk Monocytes/100 WBC (Bld) 9.8 % Normal 1.7-12.0 [facility] Comment on above: Performed By: #### C MP #### [facility] [address] [place] [address] Dr. Ekta Funk NEUT # 5.2 103/ul Normal 1.4-6.5 [facility] Comment on above: Performed By: #### C MP #### [facility] [address] [place] [address] Dr. Ekta Funk Neutrophils/100 WBC (Bld) 72.4 % Normal 43.0-75.0 [facility] Comment on above: Performed By: #### C MP #### [facility] [address] [place] [address] Dr. Ekta Funk Platelet mean volume (Bld) [Entitic vol] 9.4 fL Critically low 9.5-13.5 [facility] Comment on above: Performed By: #### C MP #### [facility] [address] [place] [address] Dr. Ekta Funk PLT 250 103/ul Normal 150-450 [facility] Comment on above: Performed By: #### C MP #### [facility] [address] [place] [address] Dr. Ekta Funk RBC 2.91 106/ul Critically low 4.20-5.40 [facility] Comment on above: Performed By: #### C MP #### [facility] [address] [place] [address] Dr. Ekta Funk WBC 7.2 103/ul Normal 4.0-11.0 [facility] Comment on above: Performed By: #### C MP #### [facility] [address] [place] [address] Dr. Ekta Funk PROF 14(COMP METB)on 023 Albumin [Mass/Vol] 2.1 g/dL Critically low 3.4-5.0 [facility] Comment on above: Performed By: #### C MP #### [facility] [address] [place] [address] Dr. Ekta Funk Albumin/Globulin [Mass ratio] 0.6 {ratio} Normal [facility] Comment on above: Performed By: #### C MP #### [facility] [address] [place] [address] Dr. Ekta Funk ALP [Catalytic activity/Vol] 68 U/L Normal 46-116 [facility] Comment on above: Performed By: #### C MP #### [facility] [address] [place] [address] Dr. Ekta Funk ALT [Catalytic activity/Vol] 14 U/L Normal 14-59 [facility] Comment on above: Performed By: #### C MP #### [facility] [address] [place] [address] Dr. Ekta Funk Anion gap [Moles/Vol] 12.9 mmol/L Normal [facility] Comment on above: Performed By: #### C MP #### [facility] [address] [place] [address] Dr. Ekta Funk AST [Catalytic activity/Vol] 14 U/L Critically low 15-37 [facility] Comment on above: Performed By: #### C MP #### [facility] [address] [place] [address] Dr. Ekta Funk Bilirubin [Mass/Vol] 0.3 mg/dL Normal 0.2-1.0 [facility] Comment on above: Performed By: #### C MP #### [facility] [address] [address] [address] Ekta Funk Calcium [Mass/Vol] 8.3 mg/dL Critically low 8.5-10.1 [facility] Comment on above: Performed By: #### C MP #### [facility] [address] [address] [address] Ekta Funk Chloride [Moles/Vol] 109 mmol/L Critically high 98-107 [facility] Comment on above: Performed By: #### C MP #### [facility] [address] [address] [address] Ekta Funk CO2 [Moles/Vol] 19.3 mmol/L Critically low 21.0-32.0 [facility] Comment on above: Performed By: #### C MP #### [facility] [address] [address] [address] Ekta Funk Creatinine [Mass/Vol] 1.54 mg/dL Critically high 0.55-1.02 [facility] Comment on above: Performed By: #### C MP #### [facility] [address] [place] [address] Dr. Ekta Funk EGFR-AF PUERTO RICAN 40 mL/min/1.73m2 Critically low >=60 [facility] Comment on above: Performed By: #### C MP #### [facility] [address] [address] [address] Ekta Funk EGFR-NON AF PUERTO RICAN 33 mL/min/1.73m2 Critically low >=60 [facility] Comment on above: Performed By: #### C MP #### [facility] [address] [address] [address] Ekta Funk Globulin (S) [Mass/Vol] 3.7 g/dL Normal [facility] Comment on above: Performed By: #### C MP #### [facility] [address] [address] [address] Ekta Funk Glucose [Mass/Vol] 117 mg/dL Critically high 74-106 [facility] Comment on above: Performed By: #### C MP #### [facility] [address] [address] [address] Ekta Funk Potassium [Moles/Vol] 4.2 mmol/L Normal 3.5-5.1 [facility] Comment on above: Performed By: #### C MP #### [facility] [address] [address] [address] Ekta Funk Protein [Mass/Vol] 5.8 g/dL Critically low 6.4-8.2 [facility] Comment on above: Performed By: #### C MP #### [facility] [address] [address] [address] Ekta Funk Sodium [Moles/Vol] 137 mmol/L Normal 136-145 [facility] Comment on above: Performed By: #### C MP #### [facility] [address] [address] [address] Ekta Funk Urea nitrogen [Mass/Vol] 27.0 mg/dL Critically high 7.0-18.0 [facility] Comment on above: Performed By: #### C MP #### [facility] [address] [address] [address] Ekta Funk Urea nitrogen/Creatinine [Mass ratio] 17.5 mg/mg Normal [facility] Comment on above: Performed By: #### C MP #### [facility] [address] [address] [address] Ekta Funk AMMONIAon 11-24-2022 Ammonia (P) [Moles/Vol] 13 umol/L Normal 11-32 [facility] Comment on above: Performed By: #### C VDTBH #### [facility] [address] [address] [address] Ekta Funk CBC AUTO DIFFon 11-24-2022 BASO # 0.0 103/ul Normal 0.0-0.1 [facility] Comment on above: Performed By: #### C MP #### [facility] [address] [address] [address] Ekta Funk Basophils/100 WBC (Bld) 0.4 % Normal 0.2-2.0 [facility] Comment on above: Performed By: #### C MP #### [facility] [address] [place] [address] Dr. Ekta Funk EO # 0.4 103/ul Normal 0.0-0.7 [facility] Comment on above: Performed By: #### C MP #### [facility] [address] [place] [address] Dr. Ekta Funk Eosinophils/100 WBC (Bld) 3.8 % Normal 0.9-7.0 [facility] Comment on above: Performed By: #### C MP #### [facility] [address] [place] [address] Dr. Ekta Funk Erythrocyte distribution width (RBC) [Ratio] 13.2 % Normal 11.0-15.0 [facility] Comment on above: Performed By: #### C MP #### [facility] [address] [place] [address] Dr. Ekta Funk Hematocrit (Bld) [Volume fraction] 34.0 % Critically low 36.0-48.0 [facility] Comment on above: Performed By: #### C MP #### [facility] [address] [place] [address] Dr. Ekta Funk Hemoglobin (Bld) [Mass/Vol] 11.5 g/dL Critically low 12.0-16.0 [facility] Comment on above: Performed By: #### C MP #### [facility] [address] [place] [address] Dr. Ekta Funk IG # 0.11 10e3/ul Critically high 0.00-0.03 [facility] Comment on above: Performed By: #### C MP #### [facility] [address] [place] [address] Dr. Ekta Funk IG % 1.2 % Critically high 0.0-0.5 [facility] Comment on above: Performed By: #### C MP #### [facility] [address] [place] [address] Dr. Ekta Funk LYMPH # 1.4 103/ul Normal 1.2-3.8 [facility] Comment on above: Performed By: #### C MP #### [facility] [address] [place] [address] Dr. Ekta Funk Lymphocytes/100 WBC (Bld) 14.9 % Critically low 20.5-60.0 [facility] Comment on above: Performed By: #### C MP #### [facility] [address] [place] [address] Dr. Ekta Funk MANUAL DIFF REQ NO Normal [facility] Comment on above: Performed By: #### C MP #### [facility] [address] [place] [address] Dr. Ekta Funk MCH (RBC) [Entitic mass] 32.5 pg Normal 26.7-34.0 [facility] Comment on above: Performed By: #### C MP #### [facility] [address] [place] [address] Dr. Ekta Funk MCHC (RBC) [Mass/Vol] 33.8 g/dL Normal 29.9-35.2 [facility] Comment on above: Performed By: #### C MP #### [facility] [address] [place] [address] Dr. Ekta Funk MCV (RBC) [Entitic vol] 96.0 fL Normal 81.0-99.0 [facility] Comment on above: Performed By: #### C MP #### [facility] [address] [place] [address] Dr. Ekta Funk MONO # 0.9 103/ul Critically high 0.3-0.8 [facility] Comment on above: Performed By: #### C MP #### [facility] [address] [place] [address] Dr. Ekta Funk Monocytes/100 WBC (Bld) 9.7 % Normal 1.7-12.0 [facility] Comment on above: Performed By: #### C MP #### [facility] [address] [place] [address] Dr. Ekta Funk NEUT # 6.4 103/ul Normal 1.4-6.5 [facility] Comment on above: Performed By: #### C MP #### [facility] [address] [address] [address] Ekta Funk Neutrophils/100 WBC (Bld) 70.0 % Normal 43.0-75.0 [facility] Comment on above: Performed By: #### C MP #### [facility] [address] [address] [address] Ekta Funk Platelet mean volume (Bld) [Entitic vol] 9.3 fL Critically low 9.5-13.5 [facility] Comment on above: Performed By: #### C MP #### [facility] [address] [address] [address] Ekta Funk PLT 308 103/ul Normal 150-450 [facility] Comment on above: Performed By: #### C MP #### [facility] [address] [address] [address] Ekta Funk RBC 3.54 106/ul Critically low 4.20-5.40 [facility] Comment on above: Performed By: #### C MP #### [facility] [address] [address] [address] Ekta Funk WBC 9.1 103/ul Normal 4.0-11.0 [facility] Comment on above: Performed By: #### C MP #### [facility] [id number] Ekta Funk CPKon 11-24-2022 CK [Catalytic activity/Vol] 21 U/L Critically low 26-192 [facility] Comment on above: Performed By: #### B 12FOL, VITAD, IRON #### [facility] [id number] Ekta Funk CT STROKE HEAD WOon [...] by: VANESSA PARADA Date: 2022-11-24 11:09 Normal [facility] CTA HEAD WO W CONon 11-25-19 [...] VISHNU MARIE Date: 2022-11-24 12:41 Normal [facility] CULTURE URINEon 11-24-2022 CULTURE URINE Culture Observations : NO GROWTH. Normal [facility] Comment on above: Performed By: #### I NSULIN #### [facility] [address] [place] [address] Dr. Ekta Funk Covid-19 PCR ([facility])on 11-08 SARS-CoV-2 (COVID-19) RNA GANESH+probe Ql (Unsp spec) Not detected Normal NOT DETECTED [facility] Comment on above: Result Comment: When [...] for this test is supported by the [employer] of [employer] and Human Service's declaration that [...] used). Performed By: #### C VDTBH #### [facility] [address] [place] [address] Dr. Ekta Funk ER URINE PROFILEon 3 Bilirubin Ql (U) Negative Normal NEGATIVE [facility] Comment on above: Performed By: #### C BC #### [facility] [address] [place] [address] Dr. Ekta Funk Clarity (U) CLEAR Normal CLEAR [facility] Comment on above: Performed By: #### C BC #### [facility] [address] [place] [address] Dr. Ekta Funk Color (U) LT. YELLOW Normal YELLOW [facility] Comment on above: Performed By: #### C BC #### [facility] [address] [place] [address] Dr. Ekta COLÓN A micrscopic examination will be performed if indicated. Normal [facility] Comment on above: Performed By: #### C BC #### [facility] [address] [place] [address] Dr. Ekta Funk Glucose Ql (U) Negative Normal NEGATIVE [facility] Comment on above: Performed By: #### C BC #### [facility] [address] [place] [address] Dr. Ekta Funk Hemoglobin Ql (U) Negative Normal NEGATIVE [facility] Comment on above: Performed By: #### C BC #### [facility] [address] [place] [address] Dr. Ekta Funk Ketones Ql (U) Negative Normal NEGATIVE [facility] Comment on above: Performed By: #### C BC #### [facility] [address] [place] [address] Dr. Ekta Funk LEUKOCYTES Negative Normal NEGATIVE [facility] Comment on above: Performed By: #### C BC #### [facility] [address] [place] [address] Dr. Ekta Funk Nitrite Ql (U) Negative Normal NEGATIVE [facility] Comment on above: Performed By: #### C BC #### [facility] [address] [address] [address] Ekta Funk pH (U) 5.5 [pH] Normal 5-9 [facility] Comment on above: Performed By: #### C BC #### [facility] [address] [address] [address] Ekta Funk SPEC GRAVITY 1.020 Normal 1.005-<=1.025 [facility] Comment on above: Performed By: #### C BC #### [facility] [address] [address] [address] Ekta Funk UA PROTEIN Negative Normal NEGATIVE/ TRACE [facility] Comment on above: Performed By: #### C BC #### [facility] [address] [place] [address] Dr. Ekta Funk UR MICRO IND NOT INDICATED Normal [facility] Comment on above: Performed By: #### C BC #### [facility] [address] [place] [address] Dr. Ekta Funk Urobilinogen Qn (U) 0.2 {Ivan'U}/dL Normal 0.2 - 1. 0 [facility] Comment on above: Performed By: #### C BC #### [facility] [address] [place] [address] Dr. Ekta Funk GLYCOHEMOGLOBIN A1Con 2022 ADA RECOMMENDATION SEE BELOW Normal [facility] Comment on above: Result Comment: ADA RECOMMENDED LIMIT 4.0 - 6.0 ADA THERAPEUTIC TARGET < 7.0 ACTION SUGGESTED > 7.0 Performed By: #### B 12FOL, VITAD, IRON #### [facility] [address] [place] [address] Dr. Ekta Funk Glucose [Mass/Vol] 143 mg/dL Normal [facility] Comment on above: Performed By: #### B 12FOL, VITAD, IRON #### [facility] [address] [place] [address] Dr. Ekta Funk HbA1c (Bld) [Mass fraction] 6.6 % Critically high 4.5-6.2 [facility] Comment on above: Performed By: #### B 12FOL, VITAD, IRON #### [facility] [address] [place] [address] Dr. Ekta Funk LACTATE/LACTIC ACIDon 2022 Lactate [Moles/Vol] 1.6 mmol/L Normal 0.4-2.0 [facility] Comment on above: Performed By: #### C MP #### [facility] [address] [place] [address] Dr. Ekta Funk Lactate [Moles/Vol] 2.1 mmol/L Critically high 0.4-2.0 [facility] Comment on above: Performed By: #### B 12FOL, VITAD, IRON #### [facility] [address] [place] [address] Dr. Ekta Funk LIPASEon 11-24-2022 Lipase [Catalytic activity/Vol] 165.0 U/L Normal 73.0-393.0 [facility] Comment on above: Performed By: #### B 12FOL, VITAD, IRON #### [facility] [address] [place] [address] Dr. Ekta Funk LIPID PROFILEon 11-24-2022 CHOL-HDL RATIO NORM SEE BELOW Normal [facility] Comment on above: Result Comment: 3.3 - 4.4 LOW RISK 4.4 - 7.1 AVERAGE RISK 7.1 - 11.0 MODERATE RISK >11.0 HIGH RISK Performed By: #### B 12FOL, VITAD, IRON #### [facility] [address] [place] [address] Dr. Ekta Funk Cholesterol [Mass/Vol] 248 mg/dL Critically high <=200 [facility] Comment on above: Performed By: #### B 12FOL, VITAD, IRON #### [facility] [address] [place] [address] Dr. Ekta Funk Cholesterol in HDL [Mass/Vol] 58 mg/dL Normal 40-60 [facility] Comment on above: Performed By: #### B 12FOL, VITAD, IRON #### [facility] [address] [address] [address] Ekta Funk Cholesterol in LDL [Mass/Vol] 165.6 mg/dL Normal [facility] Comment on above: Performed By: #### B 12FOL, VITAD, IRON #### [facility] [address] [address] [address] Ekta Funk Cholesterol.total/Ch olesterol in HDL [Mass ratio] 4.3 {ratio} Normal [facility] Comment on above: Performed By: #### B 12FOL, VITAD, IRON #### [facility] [address] [address] [address] Ekta Funk HDL NORMAL > or = 60 mg/dl - LO W CARDIOVASCULAR RISK <40 mg/dl - HIGH CARDIOVASCULAR RISK Normal [facility] Comment on above: Performed By: #### B 12FOL, VITAD, IRON #### [facility] [address] [address] [address] Ekta Funk LDL CALC NORMAL SEE BELOW Normal [facility] Comment on above: Result Comment: <100 mg/dl OPTIMAL 100 - 129 mg/dl NEAR OR ABOVE OPTIMAL 130 - 159 mg/dl BORDERLINE HIGH 160 - 189 mg/dl HIGH >190 mg/dl VERY HIGH Performed By: #### B 12FOL, VITAD, IRON #### [facility] [address] [address] [address] Ekta Funk Triglyceride [Mass/Vol] 122 mg/dL Normal <=150 [facility] Comment on above: Performed By: #### B 12FOL, VITAD, IRON #### [facility] [address] [address] [address] Ekta Funk VLDL CALC 24.4 mg/dL Normal [facility] Comment on above: Performed By: #### B 12FOL, VITAD, IRON #### [facility] [address] [place] [address] Dr. Ekta Funk MRI BRAIN WO CONon [...] by: RAVEN ELAINE Date: 2022-11-24 19:35 Normal [facility] PROF 14(COMP METB)on 11-24- 023 Albumin [Mass/Vol] 2.7 g/dL Critically low 3.4-5.0 [facility] Comment on above: Performed By: #### B 12FOL, VITAD, IRON #### [facility] [address] [address] [address] Ekta Funk Albumin/Globulin [Mass ratio] 0.6 {ratio} Normal [facility] Comment on above: Performed By: #### B 12FOL, VITAD, IRON #### [facility] [address] [address] [address] Ekta Funk ALP [Catalytic activity/Vol] 85 U/L Normal 46-116 [facility] Comment on above: Performed By: #### B 12FOL, VITAD, IRON #### [facility] [address] [address] [address] Ekta Funk ALT [Catalytic activity/Vol] 18 U/L Normal 14-59 [facility] Comment on above: Performed By: #### B 12FOL, VITAD, IRON #### [facility] [address] [place] [address] Dr. Ekta Funk Anion gap [Moles/Vol] 18.9 mmol/L Normal [facility] Comment on above: Performed By: #### B 12FOL, VITAD, IRON #### [facility] [address] [place] [address] Dr. Ekta Funk AST [Catalytic activity/Vol] 16 U/L Normal 15-37 [facility] Comment on above: Performed By: #### B 12FOL, VITAD, IRON #### [facility] [address] [place] [address] Dr. Ekta Funk Bilirubin [Mass/Vol] 0.4 mg/dL Normal 0.2-1.0 [facility] Comment on above: Performed By: #### B 12FOL, VITAD, IRON #### [facility] [address] [place] [address] Dr. Ekta Funk Calcium [Mass/Vol] 9.5 mg/dL Normal 8.5-10.1 [facility] Comment on above: Performed By: #### B 12FOL, VITAD, IRON #### [facility] [address] [place] [address] Dr. Ekta Funk Chloride [Moles/Vol] 108 mmol/L Critically high 98-107 [facility] Comment on above: Performed By: #### B 12FOL, VITAD, IRON #### [facility] [address] [place] [address] Dr. Ekta Funk CO2 [Moles/Vol] 21.1 mmol/L Normal 21.0-32.0 [facility] Comment on above: Performed By: #### B 12FOL, VITAD, IRON #### [facility] [address] [place] [address] Dr. Ekta Funk Creatinine [Mass/Vol] 2.08 mg/dL Critically high 0.55-1.02 [facility] Comment on above: Performed By: #### B 12FOL, VITAD, IRON #### [facility] [address] [address] [address] Ekta Funk EGFR-AF PUERTO RICAN 28 mL/min/1.73m2 Critically low >=60 [facility] Comment on above: Performed By: #### B 12FOL, VITAD, IRON #### [facility] [address] [place] [address] Dr. Ekta Funk EGFR-NON AF PUERTO RICAN 23 mL/min/1.73m2 Critically low >=60 [facility] Comment on above: Performed By: #### B 12FOL, VITAD, IRON #### [facility] [address] [address] [address] Ekta Funk Globulin (S) [Mass/Vol] 4.6 g/dL Normal [facility] Comment on above: Performed By: #### B 12FOL, VITAD, IRON #### [facility] [address] [place] [address] Dr. Ekta Funk Glucose [Mass/Vol] 119 mg/dL Critically high 74-106 [facility] Comment on above: Performed By: #### B 12FOL, VITAD, IRON #### [facility] [address] [place] [address] Dr. Ekta Funk Potassium [Moles/Vol] 5.0 mmol/L Normal 3.5-5.1 [facility] Comment on above: Performed By: #### B 12FOL, VITAD, IRON #### [facility] [address] [place] [address] Dr. Ekta Funk Protein [Mass/Vol] 7.3 g/dL Normal 6.4-8.2 [facility] Comment on above: Performed By: #### B 12FOL, VITAD, IRON #### [facility] [address] [place] [address] Dr. Ekta Funk Sodium [Moles/Vol] 143 mmol/L Normal 136-145 [facility] Comment on above: Performed By: #### B 12FOL, VITAD, IRON #### [facility] [address] [place] [address] Dr. Ekta Funk Urea nitrogen [Mass/Vol] 37.0 mg/dL Critically high 7.0-18.0 [facility] Comment on above: Performed By: #### B CAROLYN LAUGHLIN, IRON #### [facility] [address] [address] [address] Ekta Funk Urea nitrogen/Creatinine [Mass ratio] 17.8 mg/mg Normal [facility] Comment on above: Performed By: #### B CAROLYN LAUGHLIN, IRON #### [facility] [address] [address] [address] Ekta Funk TROPONIN, HIGH SENSITIVITYon 11-24-2022 HSTROP 14.1 pg/mL Normal 4.0-51.3 [facility] Comment on above: Result Comment: CUT- OFF POINTS HAVE BEEN ESTABLISHED BASED ON THE FOURTH UNIVERSAL DEFINITIONS OF MYOCARDIAL INFARCTION. THE UPPER REFERENCE LIMIT (URL) OF TROPONIN, DEFINED THE 99TH PERCENTILE OF cTnI DISTRIBUTION IN A REFERENCE POPULATION, HAS BEEN CONFIRMED THE DECISION THRESHOLD FOR CA DIAGNOSIS. Performed By: #### B CAROLYN LAUGHLIN, IRON #### [facility] [address] [address] [address] Ekta Funk TSHon 11-24-2022 TSH 1.184 uIU/mL Normal 0.358-3.740 [facility] Comment on above: Performed By: #### B CAROLYN LAUGHLIN, IRON #### [facility] [address] [place] [address] Dr. Ekta Funk XR CHEST 1 Von [...] NATALIIA TATE Date: 2022-11-24 11:00 Normal [facility] BNPon 11-13-2022 Natriuretic peptide B (Bld) [Mass/Vol] 565.0 pg/mL Normal <=900.0 [facility] Comment on above: Performed By: #### I NSULIN #### [facility] [address] [place] [address] Dr. Ekta Funk CBC AUTO DIFFon 11-13-2022 BASO # 0.1 103/ul Normal 0.0-0.1 [facility] Comment on above: Performed By: #### C BC #### [facility] [address] [place] [address] Dr. Ekta Funk Basophils/100 WBC (Bld) 0.6 % Normal 0.2-2.0 [facility] Comment on above: Performed By: #### C BC #### [facility] [address] [place] [address] Dr. Ekta Funk EO # 0.4 103/ul Normal 0.0-0.7 [facility] Comment on above: Performed By: #### C BC #### [facility] [address] [place] [address] Dr. Ekta Funk Eosinophils/100 WBC (Bld) 3.7 % Normal 0.9-7.0 [facility] Comment on above: Performed By: #### C BC #### [facility] [address] [place] [address] Dr. Ekta Funk Erythrocyte distribution width (RBC) [Ratio] 13.2 % Normal 11.0-15.0 [facility] Comment on above: Performed By: #### C BC #### [facility] [address] [place] [address] Dr. Ekta Funk Hematocrit (Bld) [Volume fraction] 36.7 % Normal 36.0-48.0 [facility] Comment on above: Performed By: #### C BC #### [facility] [address] [place] [address] Dr. Ekta Funk Hemoglobin (Bld) [Mass/Vol] 12.4 g/dL Normal 12.0-16.0 [facility] Comment on above: Performed By: #### C BC #### [facility] [address] [address] [address] Ekta Funk IG # 0.10 10e3/ul Critically high 0.00-0.03 [facility] Comment on above: Performed By: #### C BC #### [facility] [address] [address] [address] Ekta Funk IG % 1.0 % Critically high 0.0-0.5 [facility] Comment on above: Performed By: #### C BC #### [facility] [address] [place] [address] Dr. Ekta Funk LYMPH # 1.5 103/ul Normal 1.2-3.8 [facility] Comment on above: Performed By: #### C BC #### [facility] [address] [place] [address] Dr. Ekta Funk Lymphocytes/100 WBC (Bld) 14.9 % Critically low 20.5-60.0 [facility] Comment on above: Performed By: #### C BC #### [facility] [address] [place] [address] Dr. Ekta Funk MANUAL DIFF REQ NO Normal [facility] Comment on above: Performed By: #### C BC #### [facility] [address] [place] [address] Dr. Ekta Funk MCH (RBC) [Entitic mass] 32.8 pg Normal 26.7-34.0 [facility] Comment on above: Performed By: #### C BC #### [facility] [address] [place] [address] Dr. Ekta Funk MCHC (RBC) [Mass/Vol] 33.8 g/dL Normal 29.9-35.2 [facility] Comment on above: Performed By: #### C BC #### [facility] [address] [place] [address] Dr. Ekta Funk MCV (RBC) [Entitic vol] 97.1 fL Normal 81.0-99.0 [facility] Comment on above: Performed By: #### C BC #### [facility] [address] [place] [address] Dr. Ekta Funk MONO # 0.8 103/ul Normal 0.3-0.8 [facility] Comment on above: Performed By: #### C BC #### [facility] [address] [place] [address] Dr. Ekta Funk Monocytes/100 WBC (Bld) 7.7 % Normal 1.7-12.0 [facility] Comment on above: Performed By: #### C BC #### [facility] [address] [place] [address] Dr. Ekta Funk NEUT # 7.3 103/ul Critically high 1.4-6.5 [facility] Comment on above: Performed By: #### C BC #### [facility] [address] [place] [address] Dr. Ekta Funk Neutrophils/100 WBC (Bld) 72.1 % Normal 43.0-75.0 [facility] Comment on above: Performed By: #### C BC #### [facility] [address] [place] [address] Dr. Ekta Funk Platelet mean volume (Bld) [Entitic vol] 9.4 fL Critically low 9.5-13.5 [facility] Comment on above: Performed By: #### C BC #### [facility] [address] [place] [address] Dr. Ekta Funk PLT 251 103/ul Normal 150-450 [facility] Comment on above: Performed By: #### C BC #### [facility] [address] [place] [address] Dr. Ekta Funk RBC 3.78 106/ul Critically low 4.20-5.40 [facility] Comment on above: Performed By: #### C BC #### [facility] [address] [place] [address] Dr. Ekta Funk WBC 10.1 103/ul Normal 4.0-11.0 [facility] Comment on above: Performed By: #### C BC #### [facility] [address] [place] [address] Dr. Ekta Funk FREE THYROXINE INDEX T7on FTI 2.73 Normal 1.30-4.50 [facility] Comment on above: Performed By: #### I NSULIN #### [facility] [address] [address] [address] Ekta Funk T3U 35.0 % Normal 30.0-39.0 [facility] Comment on above: Performed By: #### I NSULIN #### [facility] [address] [address] [address] Ekta Funk T4 [Mass/Vol] 7.80 ug/dL Normal 4.80-13.90 [facility] Comment on above: Performed By: #### I NSULIN #### [facility] [address] [address] [address] Ekta Funk GLYCOHEMOGLOBIN A1Con 2022 ADA RECOMMENDATION SEE BELOW Normal [facility] Comment on above: Result Comment: ADA RECOMMENDED LIMIT 4.0 - 6.0 ADA THERAPEUTIC TARGET < 7.0 ACTION SUGGESTED > 7.0 Performed By: #### B 12FOL, VITAD, IRON #### [facility] [address] [address] [address] Ekta Funk Glucose [Mass/Vol] 134 mg/dL Normal [facility] Comment on above: Performed By: #### B 12FOL, VITAD, IRON #### [facility] [address] [address] [address] Ekta Funk HbA1c (Bld) [Mass fraction] 6.3 % Critically high 4.5-6.2 [facility] Comment on above: Performed By: #### B 12FOL, VITAD, IRON #### [facility] [address] [address] [address] Ekta Funk IRONon 11-13-2022 Iron [Mass/Vol] 55.0 ug/dL Normal 50.0-170.0 [facility] Comment on above: Performed By: #### B 12FOL, VITAD, IRON #### [facility] [address] [place] [address] Dr. Ekta Funk LIPID PROFILEon 11-13-2022 CHOL-HDL RATIO NORM SEE BELOW Normal [facility] Comment on above: Result Comment: 3.3 - 4.4 LOW RISK 4.4 - 7.1 AVERAGE RISK 7.1 - 11.0 MODERATE RISK >11.0 HIGH RISK Performed By: #### I NSULIN #### [facility] [address] [address] [address] Ekta Funk Cholesterol [Mass/Vol] 294 mg/dL Critically high <=200 [facility] Comment on above: Performed By: #### I NSULIN #### [facility] [address] [address] [address] Ekta Funk Cholesterol in HDL [Mass/Vol] 64 mg/dL Critically high 40-60 [facility] Comment on above: Performed By: #### I NSULIN #### [facility] [address] [address] [address] Ekta Funk Cholesterol in LDL [Mass/Vol] 197.2 mg/dL Normal [facility] Comment on above: Performed By: #### I NSULIN #### [facility] [address] [address] [address] Ekta Funk Cholesterol.total/Ch olesterol in HDL [Mass ratio] 4.6 {ratio} Normal [facility] Comment on above: Performed By: #### I NSULIN #### [facility] [address] [address] [address] Ekta Funk HDL NORMAL > or = 60 mg/dl - LO W CARDIOVASCULAR RISK <40 mg/dl - HIGH CARDIOVASCULAR RISK Normal [facility] Comment on above: Performed By: #### I NSULIN #### [facility] [address] [address] [address] Ekta Funk LDL CALC NORMAL SEE BELOW Normal [facility] Comment on above: Result Comment: <100 mg/dl OPTIMAL 100 - 129 mg/dl NEAR OR ABOVE OPTIMAL 130 - 159 mg/dl BORDERLINE HIGH 160 - 189 mg/dl HIGH >190 mg/dl VERY HIGH Performed By: #### I NSULIN #### [facility] [address] [address] [address] Ekta Funk Triglyceride [Mass/Vol] 164 mg/dL Critically high <=150 [facility] Comment on above: Performed By: #### I NSULIN #### [facility] [address] [place] [address] Dr. Ekta Funk VLDL CALC 32.8 mg/dL Normal [facility] Comment on above: Performed By: #### I NSULIN #### [facility] [address] [place] [address] Dr. Ekta Funk PROF 14(COMP METB)on 023 Albumin [Mass/Vol] 3.0 g/dL Critically low 3.4-5.0 [facility] Comment on above: Performed By: #### I NSULIN #### [facility] [address] [place] [address] Dr. Ekta Funk Albumin/Globulin [Mass ratio] 0.6 {ratio} Normal [facility] Comment on above: Performed By: #### I NSULIN #### [facility] [address] [place] [address] Dr. Ekta Funk ALP [Catalytic activity/Vol] 92 U/L Normal 46-116 [facility] Comment on above: Performed By: #### I NSULIN #### [facility] [address] [place] [address] Dr. Ekta Funk ALT [Catalytic activity/Vol] 26 U/L Normal 14-59 [facility] Comment on above: Performed By: #### I NSULIN #### [facility] [address] [place] [address] Dr. Ekta Funk Anion gap [Moles/Vol] 16.2 mmol/L Normal [facility] Comment on above: Performed By: #### I NSULIN #### [facility] [address] [place] [address] Dr. Ekta Funk AST [Catalytic activity/Vol] 16 U/L Normal 15-37 [facility] Comment on above: Performed By: #### I NSULIN #### [facility] [address] [place] [address] Dr. Ekta Funk Bilirubin [Mass/Vol] 0.5 mg/dL Normal 0.2-1.0 [facility] Comment on above: Performed By: #### I NSULIN #### [facility] [address] [place] [address] Dr. Ekta Funk Calcium [Mass/Vol] 9.7 mg/dL Normal 8.5-10.1 [facility] Comment on above: Performed By: #### I NSULIN #### [facility] [address] [place] [address] Dr. Ekta Funk Chloride [Moles/Vol] 105 mmol/L Normal 98-107 [facility] Comment on above: Performed By: #### I NSULIN #### [facility] [address] [place] [address] Dr. Ekta Funk CO2 [Moles/Vol] 24.9 mmol/L Normal 21.0-32.0 [facility] Comment on above: Performed By: #### I NSULIN #### [facility] [address] [place] [address] Dr. Ekta Funk Creatinine [Mass/Vol] 2.18 mg/dL Critically high 0.55-1.02 [facility] Comment on above: Performed By: #### I NSULIN #### [facility] [address] [place] [address] Dr. Ekta Funk EGFR-AF PUERTO RICAN 27 mL/min/1.73m2 Critically low >=60 [facility] Comment on above: Performed By: #### I NSULIN #### [facility] [address] [place] [address] Dr. Ekta Funk EGFR-NON AF PUERTO RICAN 22 mL/min/1.73m2 Critically low >=60 [facility] Comment on above: Performed By: #### I NSULIN #### [facility] [address] [place] [address] Dr. Ekta Funk Globulin (S) [Mass/Vol] 4.7 g/dL Normal [facility] Comment on above: Performed By: #### I NSULIN #### [facility] [address] [place] [address] Dr. Ekta Funk Glucose [Mass/Vol] 114 mg/dL Critically high 74-106 [facility] Comment on above: Performed By: #### I NSULIN #### [facility] [address] [address] [address] Ekta Funk Potassium [Moles/Vol] 5.1 mmol/L Normal 3.5-5.1 [facility] Comment on above: Performed By: #### I NSULIN #### [facility] [address] [place] [address] Dr. Ekta Funk Protein [Mass/Vol] 7.7 g/dL Normal 6.4-8.2 [facility] Comment on above: Performed By: #### I NSULIN #### [facility] [address] [place] [address] Dr. Ekta Funk Sodium [Moles/Vol] 141 mmol/L Normal 136-145 [facility] Comment on above: Performed By: #### I NSULIN #### [facility] [address] [place] [address] Dr. Ekta Funk Urea nitrogen [Mass/Vol] 51.0 mg/dL Critically high 7.0-18.0 [facility] Comment on above: Performed By: #### I NSULIN #### [facility] [address] [place] [address] Dr. Ekta Funk Urea nitrogen/Creatinine [Mass ratio] 23.4 mg/mg Normal [facility] Comment on above: Performed By: #### I NSULIN #### [facility] [address] [place] [address] Dr. Ekta Funk TSHon 11-13-2022 TSH 0.935 uIU/mL Normal 0.358-3.740 [facility] Comment on above: Performed By: #### I NSULIN #### [facility] [address] [place] [address] Dr. Ekta Funk XR CHEST 2 Von [...] GODWIN BECK Date: 2022-11-13 15:40 Normal [facility] PROF 14(COMP METB)on 023 Albumin [Mass/Vol] 3.0 g/dL Critically low 3.4-5.0 Th [facility] Comment on above: Performed By: #### B 12FOL, VITAD, IRON #### [facility] [address] [place] [address] Dr. Ekta Funk Albumin/Globulin [Mass ratio] 0.7 {ratio} Normal [facility] Comment on above: Performed By: #### B 12FOL, VITAD, IRON #### [facility] [address] [place] [address] Dr. Ekta Funk ALP [Catalytic activity/Vol] 89 U/L Normal 46-116 [facility] Comment on above: Performed By: #### B 12FOL, VITAD, IRON #### [facility] [address] [place] [address] Dr. Ekta Funk ALT [Catalytic activity/Vol] 29 U/L Normal 14-59 [facility] Comment on above: Performed By: #### B 12FOL, VITAD, IRON #### [facility] [address] [place] [address] Dr. Ekta Funk Anion gap [Moles/Vol] 15.2 mmol/L Normal [facility] Comment on above: Performed By: #### B 12FOL, VITAD, IRON #### [facility] [address] [place] [address] Dr. Ekta Funk AST [Catalytic activity/Vol] 14 U/L Critically low 15-37 [facility] Comment on above: Performed By: #### B 12FOL, VITAD, IRON #### [facility] [address] [place] [address] Dr. Ekta Funk Bilirubin [Mass/Vol] 0.4 mg/dL Normal 0.2-1.0 [facility] Comment on above: Performed By: #### B 12FOL, VITAD, IRON #### [facility] [address] [address] [address] Ekta Funk Calcium [Mass/Vol] 9.1 mg/dL Normal 8.5-10.1 [facility] Comment on above: Performed By: #### B 12FOL, VITAD, IRON #### [facility] [address] [address] [address] Ekta Funk Chloride [Moles/Vol] 106 mmol/L Normal 98-107 [facility] Comment on above: Performed By: #### B 12FOL, VITAD, IRON #### [facility] [address] [place] [address] Dr. Ekta Funk CO2 [Moles/Vol] 24.2 mmol/L Normal 21.0-32.0 [facility] Comment on above: Performed By: #### B 12FOL, VITAD, IRON #### [facility] [address] [address] [address] Ekta Funk Creatinine [Mass/Vol] 1.89 mg/dL Critically high 0.55-1.02 [facility] Comment on above: Performed By: #### B 12FOL, VITAD, IRON #### [facility] [address] [place] [address] Dr. Ekta Funk EGFR-AF PUERTO RICAN 32 mL/min/1.73m2 Critically low >=60 [facility] Comment on above: Performed By: #### B 12FOL, VITAD, IRON #### [facility] [address] [address] [address] Ekta Funk EGFR-NON AF PUERTO RICAN 26 mL/min/1.73m2 Critically low >=60 [facility] Comment on above: Performed By: #### B 12FOL, VITAD, IRON #### [facility] [address] [address] [address] Ekta Funk Globulin (S) [Mass/Vol] 4.1 g/dL Normal [facility] Comment on above: Performed By: #### B 12FOL, VITAD, IRON #### [facility] [address] [address] [address] Ekta Funk Glucose [Mass/Vol] 108 mg/dL Critically high 74-106 [facility] Comment on above: Performed By: #### B 12FOL, VITAD, IRON #### [facility] [address] [place] [address] Dr. Ekta Funk Potassium [Moles/Vol] 4.4 mmol/L Normal 3.5-5.1 [facility] Comment on above: Performed By: #### B 12FOL, VITAD, IRON #### [facility] [address] [place] [address] Dr. Ekta Funk Protein [Mass/Vol] 7.1 g/dL Normal 6.4-8.2 [facility] Comment on above: Performed By: #### B 12FOL, VITAD, IRON #### [facility] [address] [place] [address] Dr. Ekta Funk Sodium [Moles/Vol] 141 mmol/L Normal 136-145 [facility] Comment on above: Performed By: #### B 12FOL, VITAD, IRON #### [facility] [address] [place] [address] Dr. Ekta Funk Urea nitrogen [Mass/Vol] 40.0 mg/dL Critically high 7.0-18.0 [facility] Comment on above: Performed By: #### B 12FOL, VITAD, IRON #### [facility] [address] [place] [address] Dr. Ekta Funk Urea nitrogen/Creatinine [Mass ratio] 21.2 mg/mg Normal [facility] Comment on above: Performed By: #### B 12FOL, VITAD, IRON #### [facility] [address] [place] [address] Dr. Ekta Funk BNPon 10-23-2022 Natriuretic peptide B (Bld) [Mass/Vol] 507.0 pg/mL Normal <=900.0 [facility] Comment on above: Performed By: #### B 12FOL, VITAD, IRON #### [facility] [address] [place] [address] Dr. Ekta Funk CBC AUTO DIFFon 10-23-2022 BASO # 0.0 103/ul Normal 0.0-0.1 [facility] Comment on above: Performed By: #### C BC #### [facility] [address] [place] [address] Dr. Ekta Funk Basophils/100 WBC (Bld) 0.2 % Normal 0.2-2.0 [facility] Comment on above: Performed By: #### C BC #### [facility] [address] [place] [address] Dr. Ekta Funk EO # 0.1 103/ul Normal 0.0-0.7 [facility] Comment on above: Performed By: #### C BC #### [facility] [address] [place] [address] Dr. Ekta Funk Eosinophils/100 WBC (Bld) 1.1 % Normal 0.9-7.0 [facility] Comment on above: Performed By: #### C BC #### [facility] [address] [place] [address] Dr. Ekta Funk Erythrocyte distribution width (RBC) [Ratio] 12.8 % Normal 11.0-15.0 [facility] Comment on above: Performed By: #### C BC #### [facility] [address] [place] [address] Dr. Ekta Funk Hematocrit (Bld) [Volume fraction] 37.1 % Normal 36.0-48.0 [facility] Comment on above: Performed By: #### C BC #### [facility] [address] [place] [address] Dr. Ekta Funk Hemoglobin (Bld) [Mass/Vol] 13.0 g/dL Normal 12.0-16.0 [facility] Comment on above: Performed By: #### C BC #### [facility] [address] [place] [address] Dr. Ekta Funk IG # 0.11 10e3/ul Critically high 0.00-0.03 [facility] Comment on above: Performed By: #### C BC #### [facility] [address] [place] [address] Dr. Ekta Funk IG % 1.1 % Critically high 0.0-0.5 [facility] Comment on above: Performed By: #### C BC #### [facility] [address] [place] [address] Dr. Ekta Funk LYMPH # 1.6 103/ul Normal 1.2-3.8 [facility] Comment on above: Performed By: #### C BC #### [facility] [address] [place] [address] Dr. Ekta Funk Lymphocytes/100 WBC (Bld) 15.6 % Critically low 20.5-60.0 [facility] Comment on above: Performed By: #### C BC #### [facility] [address] [place] [address] Dr. Ekta Funk MANUAL DIFF REQ NO Normal [facility] Comment on above: Performed By: #### C BC #### [facility] [address] [place] [address] Dr. Ekta Funk MCH (RBC) [Entitic mass] 32.8 pg Normal 26.7-34.0 [facility] Comment on above: Performed By: #### C BC #### [facility] [address] [place] [address] Dr. Ekta Funk MCHC (RBC) [Mass/Vol] 35.0 g/dL Normal 29.9-35.2 [facility] Comment on above: Performed By: #### C BC #### [facility] [address] [place] [address] Dr. Ekta Funk MCV (RBC) [Entitic vol] 93.7 fL Normal 81.0-99.0 [facility] Comment on above: Performed By: #### C BC #### [facility] [address] [place] [address] Dr. Ekta Funk MONO # 0.9 103/ul Critically high 0.3-0.[address] [facility] Comment on above: Performed By: #### C BC #### [facility] [address] [address] [address] Ekta Funk Monocytes/100 WBC (Bld) 8.3 % Normal 1.7-12.0 [facility] Comment on above: Performed By: #### C BC #### [facility] [address] [address] [address] Ekta Funk NEUT # 7.5 103/ul Critically high 1.4-6.5 [facility] Comment on above: Performed By: #### C BC #### [facility] [address] [address] [address] Ekta Funk Neutrophils/100 WBC (Bld) 73.7 % Normal 43.0-75.0 [facility] Comment on above: Performed By: #### C BC #### [facility] [address] [address] [address] Ekta Funk Platelet mean volume (Bld) [Entitic vol] 10.3 fL Normal 9.5-13.5 [facility] Comment on above: Performed By: #### C BC #### [facility] [address] [address] [address] Ekta Funk PLT 135 103/ul Critically low 150-450 [facility] Comment on above: Performed By: #### C BC #### [facility] [address] [address] [address] Ekta Funk RBC 3.96 106/ul Critically low 4.20-5.40 [facility] Comment on above: Performed By: #### C BC #### [facility] [address] [address] [address] Ekta Funk WBC 10.2 103/ul Normal 4.0-11.0 [facility] Comment on above: Performed By: #### C BC #### [facility] [address] [address] [address] Ekta Funk PROF 14(COMP METB)on 023 Albumin [Mass/Vol] 2.7 g/dL Critically low 3.4-5.0 [facility] Comment on above: Performed By: #### B 12FOL, VITAD, IRON #### [facility] [address] [place] [address] Dr. Ekta Funk Albumin/Globulin [Mass ratio] 0.8 {ratio} Normal [facility] Comment on above: Performed By: #### B 12FOL, VITAD, IRON #### [facility] [address] [place] [address] Dr. Ekta Funk ALP [Catalytic activity/Vol] 74 U/L Normal 46-116 [facility] Comment on above: Performed By: #### B 12FOL, VITAD, IRON #### [facility] [address] [place] [address] Dr. Ekta Funk ALT [Catalytic activity/Vol] 26 U/L Normal 14-59 [facility] Comment on above: Performed By: #### B 12FOL, VITAD, IRON #### [facility] [address] [place] [address] Dr. Ekta Funk Anion gap [Moles/Vol] 16.5 mmol/L Normal [facility] Comment on above: Performed By: #### B 12FOL, VITAD, IRON #### [facility] [address] [place] [address] Dr. Ekta Funk AST [Catalytic activity/Vol] 15 U/L Normal 15-37 [facility] Comment on above: Performed By: #### B 12FOL, VITAD, IRON #### [facility] [address] [place] [address] Dr. Ekta Funk Bilirubin [Mass/Vol] 0.4 mg/dL Normal 0.2-1.0 [facility] Comment on above: Performed By: #### B 12FOL, VITAD, IRON #### [facility] [address] [place] [address] Dr. Ekta Funk Calcium [Mass/Vol] 8.1 mg/dL Critically low 8.5-10.1 [facility] Comment on above: Performed By: #### B 12FOL, VITAD, IRON #### [facility] [address] [place] [address] Dr. Ekta Funk Chloride [Moles/Vol] 96 mmol/L Critically low 98-107 [facility] Comment on above: Performed By: #### B 12FOL, VITAD, IRON #### [facility] [address] [place] [address] Dr. Ekta Funk CO2 [Moles/Vol] 26.1 mmol/L Normal 21.0-32.0 [facility] Comment on above: Performed By: #### B 12FOL, VITAD, IRON #### [facility] [address] [place] [address] Dr. Ekta Funk Creatinine [Mass/Vol] 3.28 mg/dL Critically high 0.55-1.02 [facility] Comment on above: Performed By: #### B 12FOL, VITAD, IRON #### [facility] [address] [place] [address] Dr. Ekta Funk EGFR-AF PUERTO RICAN 17 mL/min/1.73m2 Critically low >=60 [facility] Comment on above: Performed By: #### B 12FOL, VITAD, IRON #### [facility] [address] [place] [address] Dr. Ekta Funk EGFR-NON AF PUERTO RICAN 14 mL/min/1.73m2 Critically low >=60 [facility] Comment on above: Performed By: #### B 12FOL, VITAD, IRON #### [facility] [address] [place] [address] Dr. Ekta Funk Globulin (S) [Mass/Vol] 3.6 g/dL Normal [facility] Comment on above: Performed By: #### B 12FOL, VITAD, IRON #### [facility] [address] [place] [address] Dr. Ekta Funk Glucose [Mass/Vol] 132 mg/dL Critically high 74-106 [facility] Comment on above: Performed By: #### B 12FOL, VITAD, IRON #### [facility] [address] [place] [address] Dr. Ekta Funk Potassium [Moles/Vol] 4.6 mmol/L Normal 3.5-5.1 [facility] Comment on above: Performed By: #### B 12FOL, VITAD, IRON #### [facility] [address] [place] [address] Dr. Ekta Funk Protein [Mass/Vol] 6.3 g/dL Critically low 6.4-8.2 [facility] Comment on above: Performed By: #### B 12FOL, VITAD, IRON #### [facility] [address] [place] [address] Dr. Ekta Funk Sodium [Moles/Vol] 134 mmol/L Critically low 136-145 [facility] Comment on above: Performed By: #### B 12FOL, VITAD, IRON #### [facility] [address] [place] [address] Dr. Ekta Funk Urea nitrogen [Mass/Vol] 74.0 mg/dL Critically high 7.0-18.0 [facility] Comment on above: Performed By: #### B 12FOL, VITAD, IRON #### [facility] [address] [place] [address] Dr. Ekta Funk Urea nitrogen/Creatinine [Mass ratio] 22.6 mg/mg Normal [facility] Comment on above: Performed By: #### B 12FOL, VITAD, IRON #### [facility] [address] [place] [address] Dr. Ekta Funk BNPon 10-22-2022 Natriuretic peptide B (Bld) [Mass/Vol] 1411.0 pg/mL Critically high <=900.0 [facility] Comment on above: Performed By: #### B 12FOL, VITAD, IRON #### [facility] [address] [place] [address] Dr. Ekta Funk CBC AUTO DIFFon 10-22-2022 BASO # 0.0 103/ul Normal 0.0-0.1 [facility] Comment on above: Performed By: #### B 12FOL, VITAD, IRON #### [facility] [address] [place] [address] Dr. Ekta Funk Basophils/100 WBC (Bld) 0.3 % Normal 0.2-2.0 [facility] Comment on above: Performed By: #### B 12FOL, VITAD, IRON #### [facility] [address] [place] [address] Dr. Ekta Funk EO # 0.1 103/ul Normal 0.0-0.7 [facility] Comment on above: Performed By: #### B 12FOL, VITAD, IRON #### [facility] [address] [place] [address] Dr. Ekta Funk Eosinophils/100 WBC (Bld) 0.6 % Critically low 0.9-7.0 [facility] Comment on above: Performed By: #### B 12FOL, VITAD, IRON #### [facility] [address] [place] [address] Dr. Ekta Funk Erythrocyte distribution width (RBC) [Ratio] 12.9 % Normal 11.0-15.0 [facility] Comment on above: Performed By: #### B 12FOL, VITAD, IRON #### [facility] [address] [place] [address] Dr. Ekta Funk Hematocrit (Bld) [Volume fraction] 40.8 % Normal 36.0-48.0 [facility] Comment on above: Performed By: #### B 12FOL, VITAD, IRON #### [facility] [address] [place] [address] Dr. Ekta Funk Hemoglobin (Bld) [Mass/Vol] 14.0 g/dL Normal 12.0-16.0 [facility] Comment on above: Performed By: #### B 12FOL, VITAD, IRON #### [facility] [address] [place] [address] Dr. Ekta Funk IG # 0.09 10e3/ul Critically high 0.00-0.03 [facility] Comment on above: Performed By: #### B 12FOL, VITAD, IRON #### [facility] [address] [place] [address] Dr. Ekta Funk IG % 0.8 % Critically high 0.0-0.5 [facility] Comment on above: Performed By: #### B 12FOL, VITAD, IRON #### [facility] [address] [place] [address] Dr. Ekta Funk LYMPH # 1.8 103/ul Normal 1.2-3.8 [facility] Comment on above: Performed By: #### B 12FOL, VITAD, IRON #### [facility] [address] [place] [address] Dr. Ekta Funk Lymphocytes/100 WBC (Bld) 16.2 % Critically low 20.5-60.0 [facility] Comment on above: Performed By: #### B 12FOL, VITAD, IRON #### [facility] [address] [place] [address] Dr. Ekta Funk MANUAL DIFF REQ NO Normal [facility] Comment on above: Performed By: #### B 12FOL, VITAD, IRON #### [facility] [address] [place] [address] Dr. Ekta Funk MCH (RBC) [Entitic mass] 32.3 pg Normal 26.7-34.0 [facility] Comment on above: Performed By: #### B 12FOL, VITAD, IRON #### [facility] [address] [place] [address] Dr. Ekta Funk MCHC (RBC) [Mass/Vol] 34.3 g/dL Normal 29.9-35.2 [facility] Comment on above: Performed By: #### B 12FOL, VITAD, IRON #### [facility] [address] [place] [address] Dr. Ekta Funk MCV (RBC) [Entitic vol] 94.2 fL Normal 81.0-99.0 [facility] Comment on above: Performed By: #### B 12FOL, VITAD, IRON #### [facility] [address] [place] [address] Dr. Ekta Funk MONO # 0.8 103/ul Normal 0.3-0.8 [facility] Comment on above: Performed By: #### B 12FOL, VITAD, IRON #### [facility] [address] [place] [address] Dr. Ekta Funk Monocytes/100 WBC (Bld) 7.3 % Normal 1.7-12.0 [facility] Comment on above: Performed By: #### B 12FOL, VITAD, IRON #### [facility] [address] [place] [address] Dr. Ekta Funk NEUT # 8.1 103/ul Critically high 1.4-6.5 [facility] Comment on above: Performed By: #### B 12FOL, VITAD, IRON #### [facility] [address] [place] [address] Dr. Ekta Funk Neutrophils/100 WBC (Bld) 74.8 % Normal 43.0-75.0 [facility] Comment on above: Performed By: #### B 12FOL, VITAD, IRON #### [facility] [address] [place] [address] Dr. Ekta Funk Platelet mean volume (Bld) [Entitic vol] 9.8 fL Normal 9.5-13.5 [facility] Comment on above: Performed By: #### B 12FOL, VITAD, IRON #### [facility] [address] [place] [address] Dr. Ekta Funk PLT 226 103/ul Normal 150-450 [facility] Comment on above: Performed By: #### B 12FOL, VITAD, IRON #### [facility] [address] [place] [address] Dr. Ekta Funk RBC 4.33 106/ul Normal 4.20-5.40 [facility] Comment on above: Performed By: #### B 12FOL, VITAD, IRON #### [facility] [address] [place] [address] Dr. Ekta Funk WBC 10.9 103/ul Normal 4.0-11.0 [facility] Comment on above: Performed By: #### B 12FOL, VITAD, IRON #### [facility] [address] [place], [place] [id number] Dr. Ekta Funk PROF 14(COMP METB)on 023 Albumin [Mass/Vol] 3.1 g/dL Critically low 3.4-5.0 [facility] Comment on above: Performed By: #### B 12FOL, VITAD, IRON #### [facility] [address] [place] [address] Dr. Ekta Funk Albumin/Globulin [Mass ratio] 0.7 {ratio} Normal [facility] Comment on above: Performed By: #### B 12FOL, VITAD, IRON #### [facility] [address] [place] [address] Dr. Ekta Funk ALP [Catalytic activity/Vol] 81 U/L Normal 46-116 [facility] Comment on above: Performed By: #### B 12FOL, VITAD, IRON #### [facility] [address] [place] [address] Dr. Ekta Funk ALT [Catalytic activity/Vol] 30 U/L Normal 14-59 [facility] Comment on above: Performed By: #### B 12FOL, VITAD, IRON #### [facility] [address] [place] [address] Dr. Ekta Funk Anion gap [Moles/Vol] 17.3 mmol/L Normal [facility] Comment on above: Performed By: #### B 12FOL, VITAD, IRON #### [facility] [address] [place] [address] Dr. Ekta Funk AST [Catalytic activity/Vol] 11 U/L Critically low 15-37 [facility] Comment on above: Performed By: #### B 12FOL, VITAD, IRON #### [facility] [address] [place] [address] Dr. Ekta Funk Bilirubin [Mass/Vol] 0.5 mg/dL Normal 0.2-1.0 [facility] Comment on above: Performed By: #### B 12FOL, VITAD, IRON #### [facility] [address] [place] [address] Dr. Ekta Funk Calcium [Mass/Vol] 8.6 mg/dL Normal 8.5-10.1 [facility] Comment on above: Performed By: #### B 12FOL, VITAD, IRON #### [facility] [address] [place] [address] Dr. Ekta Funk Chloride [Moles/Vol] 95 mmol/L Critically low 98-107 [facility] Comment on above: Performed By: #### B 12FOL, VITAD, IRON #### [facility] [address] [place] [address] Dr. Ekta Funk CO2 [Moles/Vol] 27.3 mmol/L Normal 21.0-32.0 [facility] Comment on above: Performed By: #### B 12FOL, VITAD, IRON #### [facility] [address] [place] [address] Dr. Ekta Funk Creatinine [Mass/Vol] 3.17 mg/dL Critically high 0.55-1.02 [facility] Comment on above: Performed By: #### B 12FOL, VITAD, IRON #### [facility] [address] [place] [address] Dr. Ekta Funk EGFR-AF PUERTO RICAN 17 mL/min/1.73m2 Critically low >=60 [facility] Comment on above: Performed By: #### B 12FOL, VITAD, IRON #### [facility] [address] [place] [address] Dr. Ekta Funk EGFR-NON AF PUERTO RICAN 14 mL/min/1.73m2 Critically low >=60 [facility] Comment on above: Performed By: #### B 12FOL, VITAD, IRON #### [facility] [address] [place] [address] Dr. Ekta Funk Globulin (S) [Mass/Vol] 4.6 g/dL Normal [facility] Comment on above: Performed By: #### B 12FOL, VITAD, IRON #### [facility] [address] [place] [address] Dr. Ekta Funk Glucose [Mass/Vol] 139 mg/dL Critically high 74-106 [facility] Comment on above: Performed By: #### B 12FOL, VITAD, IRON #### [facility] [address] [place] [address] Dr. Ekta Funk Potassium [Moles/Vol] 4.6 mmol/L Normal 3.5-5.1 [facility] Comment on above: Performed By: #### B 12FOL, VITAD, IRON #### [facility] [address] [place] [address] Dr. Ekta Funk Protein [Mass/Vol] 7.7 g/dL Normal 6.4-8.2 [facility] Comment on above: Performed By: #### B 12FOL, VITAD, IRON #### [facility] [address] [place] [address] Dr. Ekta Funk Sodium [Moles/Vol] 135 mmol/L Critically low 136-145 [facility] Comment on above: Performed By: #### B 12FOL, VITAD, IRON #### [facility] [address] [place] [address] Dr. Ekta Funk Urea nitrogen [Mass/Vol] 73.0 mg/dL Critically high 7.0-18.0 [facility] Comment on above: Performed By: #### B 12FOL, VITAD, IRON #### [facility] [address] [place] [address] Dr. Ekta Funk Urea nitrogen/Creatinine [Mass ratio] 23.0 mg/mg Normal [facility] Comment on above: Performed By: #### B 12FOL, VITAD, IRON #### [facility] [address] [place] [address] Dr. Ekta Funk BNPon 10-21-2022 Natriuretic peptide B (Bld) [Mass/Vol] 2007.0 pg/mL Critically high <=900.0 [facility] Comment on above: Performed By: #### C MP #### [facility] [address] [place] [address] Dr. Ekta Funk CBC AUTO DIFFon 10-21-2022 BASO # 0.0 103/ul Normal 0.0-0.1 [facility] Comment on above: Performed By: #### C BC #### [facility] [address] [address] [address] Ekta Funk Basophils/100 WBC (Bld) 0.2 % Normal 0.2-2.0 [facility] Comment on above: Performed By: #### C BC #### [facility] [address] [place] [address] Dr. Ekta Funk EO # 0.1 103/ul Normal 0.0-0.7 [facility] Comment on above: Performed By: #### C BC #### [facility] [address] [address] [address] Ekta Funk Eosinophils/100 WBC (Bld) 0.9 % Normal 0.9-7.0 [facility] Comment on above: Performed By: #### C BC #### [facility] [address] [place] [address] Dr. Ekta Funk Erythrocyte distribution width (RBC) [Ratio] 12.8 % Normal 11.0-15.0 [facility] Comment on above: Performed By: #### C BC #### [facility] [address] [place] [address] Dr. Ekta Funk Hematocrit (Bld) [Volume fraction] 38.8 % Normal 36.0-48.0 [facility] Comment on above: Performed By: #### C BC #### [facility] [address] [place] [address] Dr. Ekta Funk Hemoglobin (Bld) [Mass/Vol] 13.3 g/dL Normal 12.0-16.0 [facility] Comment on above: Performed By: #### C BC #### [facility] [address] [place] [address] Dr. Ekta Funk IG # 0.08 10e3/ul Critically high 0.00-0.03 [facility] Comment on above: Performed By: #### C BC #### [facility] [address] [place] [address] Dr. Ekta Funk IG % 0.8 % Critically high 0.0-0.5 [facility] Comment on above: Performed By: #### C BC #### [facility] [address] [place] [address] Dr. Ekta Funk LYMPH # 1.7 103/ul Normal 1.2-3.8 [facility] Comment on above: Performed By: #### C BC #### [facility] [address] [place] [address] Dr. Ekta Funk Lymphocytes/100 WBC (Bld) 17.3 % Critically low 20.5-60.0 [facility] Comment on above: Performed By: #### C BC #### [facility] [address] [place] [address] Dr. Ekta Funk MANUAL DIFF REQ NO Normal [facility] Comment on above: Performed By: #### C BC #### [facility] [address] [place] [address] Dr. Ekta Funk MCH (RBC) [Entitic mass] 32.1 pg Normal 26.7-34.0 [facility] Comment on above: Performed By: #### C BC #### [facility] [address] [place] [address] Dr. Ekta Funk MCHC (RBC) [Mass/Vol] 34.3 g/dL Normal 29.9-35.2 [facility] Comment on above: Performed By: #### C BC #### [facility] [address] [place] [address] Dr. Ekta Funk MCV (RBC) [Entitic vol] 93.7 fL Normal 81.0-99.0 [facility] Comment on above: Performed By: #### C BC #### [facility] [address] [place] [address] Dr. Ekta Funk MONO # 0.6 103/ul Normal 0.3-0.8 [facility] Comment on above: Performed By: #### C BC #### [facility] [address] [place] [address] Dr. Ekta Funk Monocytes/100 WBC (Bld) 6.4 % Normal 1.7-12.0 [facility] Comment on above: Performed By: #### C BC #### [facility] [address] [address] [address] Ekta Funk NEUT # 7.4 103/ul Critically high 1.4-6.5 [facility] Comment on above: Performed By: #### C BC #### [facility] [address] [address] [address] Ekta Funk Neutrophils/100 WBC (Bld) 74.4 % Normal 43.0-75.0 [facility] Comment on above: Performed By: #### C BC #### [facility] [address] [place] [address] Dr. Ekta Funk Platelet mean volume (Bld) [Entitic vol] 9.8 fL Normal 9.5-13.5 [facility] Comment on above: Performed By: #### C BC #### [facility] [address] [place] [address] Dr. Ekta Funk PLT 193 103/ul Normal 150-450 [facility] Comment on above: Performed By: #### C BC #### [facility] [address] [place] [address] Dr. Ekta Funk RBC 4.14 106/ul Critically low 4.20-5.40 [facility] Comment on above: Performed By: #### C BC #### [facility] [address] [place] [address] Dr. Ekta Funk WBC 9.9 103/ul Normal 4.0-11.0 [facility] Comment on above: Performed By: #### C BC #### [facility] [address] [place] [address] Dr. Ekta Funk PROF 14(COMP METB)on 023 Albumin [Mass/Vol] 3.2 g/dL Critically low 3.4-5.0 [facility] Comment on above: Performed By: #### I NSULIN #### [facility] [address] [place] [address] Dr. Ekta Funk Albumin/Globulin [Mass ratio] 0.8 {ratio} Normal [facility] Comment on above: Performed By: #### I NSULIN #### [facility] [address] [address] [address] Ekta Funk ALP [Catalytic activity/Vol] 82 U/L Normal 46-116 [facility] Comment on above: Performed By: #### I NSULIN #### [facility] [address] [place] [address] Dr. Ekta Funk ALT [Catalytic activity/Vol] 38 U/L Normal 14-59 [facility] Comment on above: Performed By: #### I NSULIN #### [facility] [address] [place] [address] Dr. Ekta Funk Anion gap [Moles/Vol] 19.1 mmol/L Normal [facility] Comment on above: Performed By: #### I NSULIN #### [facility] [address] [place] [address] Dr. Ekta Funk AST [Catalytic activity/Vol] 19 U/L Normal 15-37 [facility] Comment on above: Performed By: #### I NSULIN #### [facility] [address] [place] [address] Dr. Ekta Funk Bilirubin [Mass/Vol] 0.4 mg/dL Normal 0.2-1.0 [facility] Comment on above: Performed By: #### I NSULIN #### [facility] [address] [place] [address] Dr. Ekta Funk Calcium [Mass/Vol] 9.2 mg/dL Normal 8.5-10.1 [facility] Comment on above: Performed By: #### I NSULIN #### [facility] [address] [place] [address] Dr. Ekta Funk Chloride [Moles/Vol] 98 mmol/L Normal 98-107 [facility] Comment on above: Performed By: #### I NSULIN #### [facility] [address] [place] [address] Dr. Ekta Funk CO2 [Moles/Vol] 26.4 mmol/L Normal 21.0-32.0 [facility] Comment on above: Performed By: #### I NSULIN #### [facility] [address] [place] [address] Dr. Ekta Funk Creatinine [Mass/Vol] 2.20 mg/dL Critically high 0.55-1.02 [facility] Comment on above: Performed By: #### I NSULIN #### [facility] [address] [address] [address] Ekta Funk EGFR-AF PUERTO RICAN 26 mL/min/1.73m2 Critically low >=60 [facility] Comment on above: Performed By: #### I NSULIN #### [facility] [address] [address] [address] Ekta Funk EGFR-NON AF PUERTO RICAN 22 mL/min/1.73m2 Critically low >=60 [facility] Comment on above: Performed By: #### I NSULIN #### [facility] [address] [address] [address] Ekta Funk Globulin (S) [Mass/Vol] 3.8 g/dL Normal [facility] Comment on above: Performed By: #### I NSULIN #### [facility] [address] [address] [address] Ekta Funk Glucose [Mass/Vol] 142 mg/dL Critically high 74-106 [facility] Comment on above: Performed By: #### I NSULIN #### [facility] [address] [address] [address] Ekta Funk Potassium [Moles/Vol] 4.5 mmol/L Normal 3.5-5.1 [facility] Comment on above: Performed By: #### I NSULIN #### [facility] [address] [address] [address] Ekta Funk Protein [Mass/Vol] 7.0 g/dL Normal 6.4-8.2 [facility] Comment on above: Performed By: #### I NSULIN #### [facility] [address] [address] [address] Ekta Funk Sodium [Moles/Vol] 139 mmol/L Normal 136-145 [facility] Comment on above: Performed By: #### I NSULIN #### [facility] [address] [address] [address] Ekta Funk Urea nitrogen [Mass/Vol] 57.0 mg/dL Critically high 7.0-18.0 [facility] Comment on above: Performed By: #### I NSULIN #### [facility] [address] [address] [address] Ekta Funk Urea nitrogen/Creatinine [Mass ratio] 25.9 mg/mg Normal [facility] Comment on above: Performed By: #### I NSULIN #### [facility] [address] [address] [address] Ekta Funk T3, TOTAL (TRIIODOTHYRONINE) on 10-21-2022 T3, TOTAL 63 ng/dL Critically low 71-180 [facility] Comment on above: Performed By: #### C MP #### [facility] [address] [address] [address] Ekta Funk XR ABD FLAT_UPon 10-21-2022 [...] by: VISHNU MARIE Date: 2022-10-21 11:42 Normal [facility] XR CHEST 2 Von 10-21-2022 XR [...] by: CHRISTIANO MORALES Date: 2022-10-21 11:23 Normal [facility] BNPon 10-20-2022 Natriuretic peptide B (Bld) [Mass/Vol] 2512.0 pg/mL Critically high <=900.0 [facility] Comment on above: Performed By: #### B ElviraFOL VITAD, IRON #### [facility] [address] [place] [address] Dr. Ekta Funk CARDIAC BRITTANIE ADMITon 023 CK [Catalytic activity/Vol] 35 U/L Normal 26-192 [facility] Comment on above: Performed By: #### B 12FOL VITAD, IRON #### [facility] [address] [place] [address] Dr. Ekta Funk CK.MB [Mass/Vol] 0.64 ng/mL Normal <=3.60 [facility] Comment on above: Performed By: #### B QIAN VITAD, IRON #### [facility] [address] [place] [address] Dr. Ekta Funk HSTROP 28.1 pg/mL Normal 4.0-51.3 [facility] Comment on above: Result Comment: CUT- OFF POINTS HAVE BEEN ESTABLISHED BASED ON THE FOURTH UNIVERSAL DEFINITIONS OF MYOCARDIAL INFARCTION. THE UPPER REFERENCE LIMIT (URL) OF TROPONIN, DEFINED THE 99TH PERCENTILE OF cTnI DISTRIBUTION IN A REFERENCE POPULATION, HAS BEEN CONFIRMED THE DECISION THRESHOLD FOR CA DIAGNOSIS. Performed By: #### B ElviraFOHu VITAD, IRON #### [facility] [address] [place] [address] Dr. Ekta Funk EVELYN 57 ng/mL Normal 9-82 [facility] Comment on above: Performed By: #### B ElviraFOL VITAD, IRON #### [facility] [address] [place] [address] Dr. Ekta Funk CBC AUTO DIFFon 10-20-2022 BASO # 0.0 103/ul Normal 0.0-0.1 [facility] Comment on above: Performed By: #### C BC #### [facility] [address] [place] [address] Dr. Ekta Funk Basophils/100 WBC (Bld) 0.2 % Normal 0.2-2.0 [facility] Comment on above: Performed By: #### C BC #### [facility] [address] [place] [address] Dr. Ekta Funk EO # 0.2 103/ul Normal 0.0-0.7 [facility] Comment on above: Performed By: #### C BC #### [facility] [address] [place] [address] Dr. Ekta Funk Eosinophils/100 WBC (Bld) 1.4 % Normal 0.9-7.0 [facility] Comment on above: Performed By: #### C BC #### [facility] [address] [place] [address] Dr. Ekta Funk Erythrocyte distribution width (RBC) [Ratio] 12.9 % Normal 11.0-15.0 [facility] Comment on above: Performed By: #### C BC #### [facility] [address] [place] [address] Dr. Ekta Funk Hematocrit (Bld) [Volume fraction] 34.7 % Critically low 36.0-48.0 [facility] Comment on above: Performed By: #### C BC #### [facility] [address] [place] [address] Dr. Ekta Funk Hemoglobin (Bld) [Mass/Vol] 11.8 g/dL Critically low 12.0-16.0 [facility] Comment on above: Performed By: #### C BC #### [facility] [address] [place] [address] Dr. Ekta Funk IG # 0.09 10e3/ul Critically high 0.00-0.03 [facility] Comment on above: Performed By: #### C BC #### [facility] [address] [place] [address] Dr. Ekta Funk IG % 0.8 % Critically high 0.0-0.5 [facility] Comment on above: Performed By: #### C BC #### [facility] [address] [place] [address] Dr. Ekta Funk LYMPH # 1.9 103/ul Normal 1.2-3.8 [facility] Comment on above: Performed By: #### C BC #### [facility] [address] [address] [address] Ekta Funk Lymphocytes/100 WBC (Bld) 16.1 % Critically low 20.5-60.0 [facility] Comment on above: Performed By: #### C BC #### [facility] [address] [address] [address] Ekta Funk MANUAL DIFF REQ NO Normal [facility] Comment on above: Performed By: #### C BC #### [facility] [address] [place] [address] Dr. Ekta Funk MCH (RBC) [Entitic mass] 32.6 pg Normal 26.7-34.0 [facility] Comment on above: Performed By: #### C BC #### [facility] [address] [place] [address] Dr. Ekta Funk MCHC (RBC) [Mass/Vol] 34.0 g/dL Normal 29.9-35.2 [facility] Comment on above: Performed By: #### C BC #### [facility] [address] [place] [address] Dr. Ekta Funk MCV (RBC) [Entitic vol] 95.9 fL Normal 81.0-99.0 [facility] Comment on above: Performed By: #### C BC #### [facility] [address] [place] [address] Dr. Ekta Funk MONO # 0.8 103/ul Normal 0.3-0.8 [facility] Comment on above: Performed By: #### C BC #### [facility] [address] [place] [address] Dr. Ekta Funk Monocytes/100 WBC (Bld) 7.0 % Normal 1.7-12.0 [facility] Comment on above: Performed By: #### C BC #### [facility] [address] [place] [address] Dr. Ekta Funk NEUT # 8.8 103/ul Critically high 1.4-6.5 [facility] Comment on above: Performed By: #### C BC #### [facility] [address] [place] [address] Dr. Ekta Funk Neutrophils/100 WBC (Bld) 74.5 % Normal 43.0-75.0 [facility] Comment on above: Performed By: #### C BC #### [facility] [address] [place] [address] Dr. Ekta Funk Platelet mean volume (Bld) [Entitic vol] 9.8 fL Normal 9.5-13.5 [facility] Comment on above: Performed By: #### C BC #### [facility] [address] [place] [address] Dr. Ekta Funk PLT 203 103/ul Normal 150-450 [facility] Comment on above: Performed By: #### C BC #### [facility] [address] [place] [address] Dr. Ekta Funk RBC 3.62 106/ul Critically low 4.20-5.40 [facility] Comment on above: Performed By: #### C BC #### [facility] [address] [place] [address] Dr. Ekta Funk WBC 11.8 103/ul Critically high 4.0-11.0 [facility] Comment on above: Performed By: #### C BC #### [facility] [address] [place] [address] Dr. Ekta Funk CULTURE URINEon 10-20-2022 CULTURE URINE Culture Observations : NO GROWTH. Normal [facility] Comment on above: Performed By: #### I NSULIN #### [facility] [address] [place] [address] Dr. Ekta Funk Covid-19 PCR (CVDTB)on 10-11 SARS-CoV-2 (COVID-19) RNA GANESH+probe Ql (Unsp spec) Not detected Normal NOT DETECTED [facility] Comment on above: Result Comment: When [...] for this test is supported by the [place] of Health and Human Service's declaration that [...] By: #### B 12FOL, VITAD, IRON #### [facility] [address] [place] [address] Dr. Ekta Funk ECHOCARDIO M/2D COMPLETEon 0 10-20-2022 ECHOCARDIO M/2D COMPLETE Patient: SHEILA MAC Exam Date: 10/20/2022 : 1950 Gender:F Ordering : DR KRZYSZTOF HARP . Admission #: [id number] Family : Order #: [id number] CLICK HERE TO VIEW EXAM ECHOCARDIOGRAM REPORT [...] M.D. on 10/20/2022 at 14:57 Normal [facility] PROF 14(COMP METB)on 023 Albumin [Mass/Vol] 2.8 g/dL Critically low 3.4-5.0 [facility] Comment on above: Performed By: #### B 12FOL, VITAD, IRON #### [facility] [address] [address] [address] Ekta Funk Albumin/Globulin [Mass ratio] 0.7 {ratio} Normal [facility] Comment on above: Performed By: #### B 12FOL, VITAD, IRON #### [facility] [address] [place] [address] Dr. Ekta Funk ALP [Catalytic activity/Vol] 84 U/L Normal 46-116 [facility] Comment on above: Performed By: #### B 12FOL, VITAD, IRON #### [facility] [address] [place] [address] Dr. Ekta Funk ALT [Catalytic activity/Vol] 29 U/L Normal 14-59 [facility] Comment on above: Performed By: #### B 12FOL, VITAD, IRON #### [facility] [address] [place] [address] Dr. Ekta Funk Anion gap [Moles/Vol] 15.9 mmol/L Normal [facility] Comment on above: Performed By: #### B 12FOL, VITAD, IRON #### [facility] [address] [place] [address] Dr. Ekta Funk AST [Catalytic activity/Vol] 15 U/L Normal 15-37 [facility] Comment on above: Performed By: #### B 12FOL, VITAD, IRON #### [facility] [address] [address] [address] Ekta Funk Bilirubin [Mass/Vol] 0.3 mg/dL Normal 0.2-1.0 [facility] Comment on above: Performed By: #### B 12FOL, VITAD, IRON #### [facility] [address] [place] [address] Dr. Ekta Funk Calcium [Mass/Vol] 8.9 mg/dL Normal 8.5-10.1 [facility] Comment on above: Performed By: #### B 12FOL, VITAD, IRON #### [facility] [address] [place] [address] Dr. Ekta Funk Chloride [Moles/Vol] 103 mmol/L Normal 98-107 [facility] Comment on above: Performed By: #### B 12FOL, VITAD, IRON #### [facility] [address] [place] [address] Dr. Ekta Funk CO2 [Moles/Vol] 26.3 mmol/L Normal 21.0-32.0 [facility] Comment on above: Performed By: #### B 12FOL, VITAD, IRON #### [facility] [address] [place] [address] Dr. Ekta Funk Creatinine [Mass/Vol] 1.99 mg/dL Critically high 0.55-1.02 [facility] Comment on above: Performed By: #### B 12FOL, VITAD, IRON #### [facility] [address] [place] [address] Dr. Ekta Funk EGFR-AF PUERTO RICAN 30 mL/min/1.73m2 Critically low >=60 [facility] Comment on above: Performed By: #### B 12FOL, VITAD, IRON #### [facility] [address] [place] [address] Dr. Ekta Funk EGFR-NON AF PUERTO RICAN 24 mL/min/1.73m2 Critically low >=60 [facility] Comment on above: Performed By: #### B 12FOL, VITAD, IRON #### [facility] [address] [place] [address] Dr. Ekta Funk Globulin (S) [Mass/Vol] 4.1 g/dL Normal [facility] Comment on above: Performed By: #### B 12FOL, VITAD, IRON #### [facility] [address] [place] [address] Dr. Ekta Funk Glucose [Mass/Vol] 115 mg/dL Critically high 74-106 [facility] Comment on above: Performed By: #### B 12FOL, VITAD, IRON #### [facility] [address] [place] [address] Dr. Ekta Funk Potassium [Moles/Vol] 5.2 mmol/L Critically high 3.5-5.1 [facility] Comment on above: Performed By: #### B 12FOL, VITAD, IRON #### [facility] [address] [place] [address] Dr. Ekta Funk Protein [Mass/Vol] 6.9 g/dL Normal 6.4-8.2 [facility] Comment on above: Performed By: #### B 12FOL, VITAD, IRON #### [facility] [address] [place] [address] Dr. Ekta Funk Sodium [Moles/Vol] 140 mmol/L Normal 136-145 [facility] Comment on above: Performed By: #### B 12FOL, VITAD, IRON #### [facility] [address] [place] [address] Dr. Ekta Funk Urea nitrogen [Mass/Vol] 45.0 mg/dL Critically high 7.0-18.0 [facility] Comment on above: Performed By: #### B 12FOL, VITAD, IRON #### [facility] [address] [place] [address] Dr. Ekta Funk Urea nitrogen/Creatinine [Mass ratio] 22.6 mg/mg Normal [facility] Comment on above: Performed By: #### B 12FOL, VITAD, IRON #### [facility] [address] [place] [address] Dr. Ekta Funk T4on 10-20-2022 T4 [Mass/Vol] 6.10 ug/dL Normal 4.80-13.90 [facility] Comment on above: Performed By: #### B 12FOL, VITAD, IRON #### [facility] [address] [place] [address] Dr. Ekta Funk TSHon 10-20-2022 TSH 1.336 uIU/mL Normal 0.358-3.740 [facility] Comment on above: Performed By: #### B 12FOL, VITAD, IRON #### [facility] [address] [place] [address] Dr. Ekta Funk UA RANDOM W/MICROSCOPICon BACTERIA TRACE Abnormal NONE SEEN [facility] Comment on above: Performed By: #### B 12FOL, VITAD, IRON #### [facility] [address] [place] [address] Dr. Ekta Funk Bilirubin Ql (U) Negative Normal NEGATIVE [facility] Comment on above: Performed By: #### B 12FOL, VITAD, IRON #### [facility] [address] [place] [address] Dr. Ekta Funk CAST NONE SEEN Normal NONE SEEN [facility] Comment on above: Performed By: #### B 12FOL, VITAD, IRON #### [facility] [address] [place] [address] Dr. Ekta Funk Clarity (U) CLEAR Normal CLEAR [facility] Comment on above: Performed By: #### B 12FOL, VITAD, IRON #### [facility] [address] [place] [address] Dr. Ekta Funk Color (U) LT. YELLOW Normal YELLOW [facility] Comment on above: Performed By: #### B 12FOL, VITAD, IRON #### [facility] [address] [place] [address] Dr. Ekta Funk Crystals LM Nom (Urine sed) NONE SEEN Normal NONE SEEN [facility] Comment on above: Performed By: #### B 12FOL, VITAD, IRON #### [facility] [address] [place] [address] Dr. Ekta Funk Epithelial cells LM Ql (Urine sed) RARE Normal NONE SEEN /RARE [facility] Comment on above: Performed By: #### B 12FOL, VITAD, IRON #### [facility] [address] [place] [address] Dr. Ekta Funk Glucose Ql (U) Negative Normal NEGATIVE [facility] Comment on above: Performed By: #### B 12FOL, VITAD, IRON #### [facility] [address] [address] [address] Ekta Funk Hemoglobin Ql (U) Negative Normal NEGATIVE [facility] Comment on above: Performed By: #### B 12FOL, VITAD, IRON #### [facility] [address] [place] [address] Dr. Ekta Funk Ketones Ql (U) Negative Normal NEGATIVE [facility] Comment on above: Performed By: #### B 12FOL, VITAD, IRON #### [facility] [address] [address] [address] Ekta Funk LEUKOCYTES Negative Normal NEGATIVE [facility] Comment on above: Performed By: #### B 12FOL, VITAD, IRON #### [facility] [address] [place] [address] Dr. Ekta Funk MUCOUS NONE SEEN Normal NONE SEEN [facility] Comment on above: Performed By: #### B 12FOL, VITAD, IRON #### [facility] [address] [place] [address] Dr. Ekta Funk Nitrite Ql (U) Negative Normal NEGATIVE [facility] Comment on above: Performed By: #### B 12FOL, VITAD, IRON #### [facility] [address] [place] [address] Dr. Ekta Funk pH (U) 6.0 [pH] Normal 5-9 [facility] Comment on above: Performed By: #### B 12FOL, VITAD, IRON #### [facility] [address] [place] [address] Dr. Ekta Funk RBC 0-2 Normal 0-2 [facility] Comment on above: Performed By: #### B 12FOL, VITAD, IRON #### [facility] [address] [place] [address] Dr. Ekta Funk SPEC GRAVITY <=1.005 Abnormal 1.005-<=1.025 [facility] Comment on above: Performed By: #### B 12FOL, VITAD, IRON #### [facility] [address] [place] [address] Dr. Ekta Funk UA PROTEIN Negative Normal NEGATIVE/ TRACE [facility] Comment on above: Performed By: #### B 12FOL, VITAD, IRON #### [facility] [address] [address] [address] Ekta Funk Urobilinogen Qn (U) 0.2 {Iavn'U}/dL Normal 0.2 - 1. 0 [facility] Comment on above: Performed By: #### B 12FOL, VITAD, IRON #### [facility] [address] [place] [address] Dr. Ekta Funk WBC NONE SEEN Normal NONE SEEN [facility] Comment on above: Performed By: #### B 12FOL, VITAD, IRON #### [facility] [address] [place] [address] Dr. Ekta Funk BNPon 10-19-2022 Natriuretic peptide B (Bld) [Mass/Vol] 1355.0 pg/mL Critically high <=900.0 [facility] Comment on above: Performed By: #### B 12FOL, VITAD, IRON #### [facility] [address] [place] [address] Dr. Ekta Funk INSULINon 10-19-2022 Insulin 12.4 uIU/mL Normal 2.6-24.9 [facility] Comment on above: Performed By: #### I NSULIN #### [facility] [address] [place] [address] Dr. Ekta Funk OCC BLD IMMUNO SCREENon OCCULT BLOOD Positive Abnormal NEGATIVE [facility] Comment on above: Performed By: #### B 12FOL, VITAD, IRON #### [facility] [address] [place] [address] Dr. Ekta Funk PROF CHEM 8 (BAS METB)on Anion gap [Moles/Vol] 15.8 mmol/L Normal [facility] Comment on above: Performed By: #### B 12FOL, VITAD, IRON #### [facility] Laboratory [address] [place] [address] Dr. Ekta Funk Calcium [Mass/Vol] 8.8 mg/dL Normal 8.5-10.1 [facility] Comment on above: Performed By: #### B 12FOL, VITAD, IRON #### [facility] [address] [place] [address] Dr. Ekta Funk Chloride [Moles/Vol] 107 mmol/L Normal 98-107 [facility] Comment on above: Performed By: #### B 12FOL, VITAD, IRON #### [facility] [address] [place] [address] Dr. Ekta Funk CO2 [Moles/Vol] 21.5 mmol/L Normal 21.0-32.0 [facility] Comment on above: Performed By: #### B 12FOL, VITAD, IRON #### [facility] [address] [place] [address] Dr. Ekta Funk Creatinine [Mass/Vol] 1.62 mg/dL Critically high 0.55-1.02 [facility] Comment on above: Performed By: #### B 12FOL, VITAD, IRON #### [facility] [address] [place] [address] Dr. Ekta Funk EGFR-AF PUERTO RICAN 38 mL/min/1.73m2 Critically low >=60 [facility] Comment on above: Performed By: #### B 12FOL, VITAD, IRON #### [facility] [address] [place] [address] Dr. Ekta Funk EGFR-NON AF PUERTO RICAN 31 mL/min/1.73m2 Critically low >=60 [facility] Comment on above: Performed By: #### B 12FOL, VITAD, IRON #### [facility] [address] [place] [address] Dr. Ekta Funk Glucose [Mass/Vol] 134 mg/dL Critically high 74-106 [facility] Comment on above: Performed By: #### B 12FOL, VITAD, IRON #### [facility] [address] [place] [address] Dr. Ekta Funk Potassium [Moles/Vol] 5.3 mmol/L Critically high 3.5-5.1 [facility] Comment on above: Performed By: #### B 12FOL, VITAD, IRON #### [facility] [address] [place] [address] Dr. Ekta Funk Sodium [Moles/Vol] 139 mmol/L Normal 136-145 [facility] Comment on above: Performed By: #### B 12FOL, VITAD, IRON #### [facility] [address] [place] [address] Dr. Ekta Funk Urea nitrogen [Mass/Vol] 37.0 mg/dL Critically high 7.0-18.0 [facility] Comment on above: Performed By: #### B 12FOL, VITAD, IRON #### [facility] [address] [place] [address] Dr. Ekta Funk Urea nitrogen/Creatinine [Mass ratio] 22.8 mg/mg Normal [facility] Comment on above: Performed By: #### B 12FOL, VITAD, IRON #### [facility] [address] [place] [address] Dr. Ekta Funk TROPONIN, HIGH SENSITIVITYon 10-19-2022 HSTROP 53.2 pg/mL Critically high 4.0-51.3 [facility] Comment on above: Result Comment: CUT- OFF POINTS HAVE BEEN ESTABLISHED BASED ON THE FOURTH UNIVERSAL DEFINITIONS OF MYOCARDIAL INFARCTION. THE UPPER REFERENCE LIMIT (URL) OF TROPONIN, DEFINED THE 99TH PERCENTILE OF cTnI DISTRIBUTION IN A REFERENCE POPULATION, HAS BEEN CONFIRMED THE DECISION THRESHOLD FOR CA DIAGNOSIS. Performed By: #### B 12FOL, VITAD, IRON #### [facility] [address] [place] [address] Dr. Ekta Funk BNPon 10-18-2022 Natriuretic peptide B (Bld) [Mass/Vol] 1386.0 pg/mL Critically high <=900.0 [facility] Comment on above: Performed By: #### C VDTBH #### [facility] [address] [place] [address] Dr. Ekta Funk CARDIAC BRITTANIE ADMITon 023 CK [Catalytic activity/Vol] 34 U/L Normal 26-192 [facility] Comment on above: Performed By: #### C VDTBH #### [facility] [address] [address] [address] Ekta Funk CK.MB [Mass/Vol] 1.43 ng/mL Normal <=3.60 [facility] Comment on above: Performed By: #### C VDTBH #### [facility] [address] [address] [address] Ekta Funk HSTROP 74.1 pg/mL Critically high 4.0-51.3 [facility] Comment on above: Result Comment: CUT- OFF POINTS HAVE BEEN ESTABLISHED BASED ON THE FOURTH UNIVERSAL DEFINITIONS OF MYOCARDIAL INFARCTION. THE UPPER REFERENCE LIMIT (URL) OF TROPONIN, DEFINED THE 99TH PERCENTILE OF cTnI DISTRIBUTION IN A REFERENCE POPULATION, HAS BEEN CONFIRMED THE DECISION THRESHOLD FOR CA DIAGNOSIS. Performed By: #### C VDTBH #### [facility] [address] [place] [address] Dr. Ekta Funk EVELYN 52 ng/mL Normal 9-82 [facility] Comment on above: Performed By: #### C VDTBH #### [facility] [address] [place] [address] Dr. Ekta Funk CBC AUTO DIFFon 10-18-2022 BASO # 0.0 103/ul Normal 0.0-0.1 [facility] Comment on above: Performed By: #### C BC #### [facility] [address] [place] [address] Dr. Ekta Funk Basophils/100 WBC (Bld) 0.3 % Normal 0.2-2.0 [facility] Comment on above: Performed By: #### C BC #### [facility] [address] [place] [address] Dr. Ekta Funk EO # 0.1 103/ul Normal 0.0-0.7 [facility] Comment on above: Performed By: #### C BC #### [facility] [address] [place] [address] Dr. Ekta Funk Eosinophils/100 WBC (Bld) 0.9 % Normal 0.9-7.0 [facility] Comment on above: Performed By: #### C BC #### [facility] [address] [place] [address] Dr. Ekta Funk Erythrocyte distribution width (RBC) [Ratio] 13.2 % Normal 11.0-15.0 [facility] Comment on above: Performed By: #### C BC #### [facility] [address] [place] [address] Dr. Ekta Funk Hematocrit (Bld) [Volume fraction] 38.9 % Normal 36.0-48.0 [facility] Comment on above: Performed By: #### C BC #### [facility] [address] [place] [address] Dr. Ekta Funk Hemoglobin (Bld) [Mass/Vol] 12.4 g/dL Normal 12.0-16.0 [facility] Comment on above: Performed By: #### C BC #### [facility] [address] [place] [address] Dr. Ekta Funk IG # 0.08 10e3/ul Critically high 0.00-0.03 [facility] Comment on above: Performed By: #### C BC #### [facility] [address] [place] [address] Dr. Ekta Funk IG % 0.5 % Normal 0.0-0.5 [facility] Comment on above: Performed By: #### C BC #### [facility] [address] [place] [address] Dr. Ekta Funk LYMPH # 1.4 103/ul Normal 1.2-3.8 [facility] Comment on above: Performed By: #### C BC #### [facility] [address] [place] [address] Dr. Ekta Funk Lymphocytes/100 WBC (Bld) 9.6 % Critically low 20.5-60.0 [facility] Comment on above: Performed By: #### C BC #### [facility] [address] [place] [address] Dr. Ekta Funk MANUAL DIFF REQ NO Normal [facility] Comment on above: Performed By: #### C BC #### [facility] [address] [place] [address] Dr. Ekta Funk MCH (RBC) [Entitic mass] 32.3 pg Normal 26.7-34.0 [facility] Comment on above: Performed By: #### C BC #### [facility] [address] [address] [address] Ekta Funk MCHC (RBC) [Mass/Vol] 31.9 g/dL Normal 29.9-35.2 [facility] Comment on above: Performed By: #### C BC #### [facility] [address] [address] [address] Ekta Funk MCV (RBC) [Entitic vol] 101.3 fL Critically high 81.0-99.0 [facility] Comment on above: Performed By: #### C BC #### [facility] [address] [place] [address] Dr. Ekta Funk MONO # 0.9 103/ul Critically high 0.3-0.8 [facility] Comment on above: Performed By: #### C BC #### [facility] [address] [place] [address] Dr. Ekta Funk Monocytes/100 WBC (Bld) 6.3 % Normal 1.7-12.0 [facility] Comment on above: Performed By: #### C BC #### [facility] [address] [place] [address] Dr. Ekta Funk NEUT # 12.0 103/ul Critically high 1.4-6.5 [facility] Comment on above: Performed By: #### C BC #### [facility] [address] [place] [address] Dr. Ekta Funk Neutrophils/100 WBC (Bld) 82.4 % Critically high 43.0-75.0 [facility] Comment on above: Performed By: #### C BC #### [facility] [address] [place] [address] Dr. Ekta Funk Platelet mean volume (Bld) [Entitic vol] 9.7 fL Normal 9.5-13.5 [facility] Comment on above: Performed By: #### C BC #### [facility] [address] [address] [address] Ekta Funk PLT 176 103/ul Normal 150-450 [facility] Comment on above: Performed By: #### C BC #### [facility] [address] [address] [address] Ekta Funk RBC 3.84 106/ul Critically low 4.20-5.40 [facility] Comment on above: Performed By: #### C BC #### [facility] [address] [address] [address] Ekta Funk WBC 14.6 103/ul Critically high 4.0-11.0 [facility] Comment on above: Performed By: #### C BC #### [facility] [address] [place] [address] Dr. Ekta Funk FREE THYROXINE INDEX T7on FTI 2.34 Normal 1.30-4.50 [facility] Comment on above: Performed By: #### C VDTBH #### [facility] [address] [place] [address] Dr. Ekta Funk T3U 36.0 % Normal 30.0-39.0 [facility] Comment on above: Performed By: #### C VDTBH #### [facility] [address] [place] [address] Dr. Ekta Funk T4 [Mass/Vol] 6.50 ug/dL Normal 4.80-13.90 [facility] Comment on above: Performed By: #### C VDTBH #### [facility] [address] [place] [address] Dr. Ekta Funk GLYCOHEMOGLOBIN A1Con 2022 ADA RECOMMENDATION SEE BELOW Normal [facility] Comment on above: Result Comment: ADA RECOMMENDED LIMIT 4.0 - 6.0 ADA THERAPEUTIC TARGET < 7.0 ACTION SUGGESTED > 7.0 Performed By: #### B 12FOL, VITAD, IRON #### [facility] [address] [place] [address] Dr. Ekta Funk Glucose [Mass/Vol] 140 mg/dL Normal [facility] Comment on above: Performed By: #### B 12FOL, VITAD, IRON #### [facility] [address] [address] [address] Ekta Funk HbA1c (Bld) [Mass fraction] 6.5 % Critically high 4.5-6.2 [facility] Comment on above: Performed By: #### B 12FOL, VITAD, IRON #### [facility] [address] [address] [address] Ekta Funk IRONon 10-18-2022 Iron [Mass/Vol] 62.0 ug/dL Normal 50.0-170.0 [facility] Comment on above: Performed By: #### B 12FOL, VITAD, IRON #### [facility] [address] [place] [address] Dr. Ekta Funk LIPID PROFILEon 10-18-2022 CHOL-HDL RATIO NORM SEE BELOW Normal [facility] Comment on above: Result Comment: 3.3 - 4.4 LOW RISK 4.4 - 7.1 AVERAGE RISK 7.1 - 11.0 MODERATE RISK >11.0 HIGH RISK Performed By: #### C VDTBH #### [facility] [address] [address] [address] Ekta Funk Cholesterol [Mass/Vol] 242 mg/dL Critically high <=200 [facility] Comment on above: Performed By: #### C VDTBH #### [facility] [address] [address] [address] Ekta Funk Cholesterol in HDL [Mass/Vol] 74 mg/dL Critically high 40-60 [facility] Comment on above: Performed By: #### C VDTBH #### [facility] [address] [address] [address] Ekta Funk Cholesterol in LDL [Mass/Vol] 139.4 mg/dL Normal [facility] Comment on above: Performed By: #### C VDTBH #### [facility] [address] [address] [address] Ekta Funk Cholesterol.total/Ch olesterol in HDL [Mass ratio] 3.3 {ratio} Normal [facility] Comment on above: Performed By: #### C VDTBH #### [facility] [address] [address] [address] Ekta Funk HDL NORMAL > or = 60 mg/dl - LO W CARDIOVASCULAR RISK <40 mg/dl - HIGH CARDIOVASCULAR RISK Normal [facility] Comment on above: Performed By: #### C VDTBH #### [facility] [address] [address] [address] Ekta Funk LDL CALC NORMAL SEE BELOW Normal [facility] Comment on above: Result Comment: <100 mg/dl OPTIMAL 100 - 129 mg/dl NEAR OR ABOVE OPTIMAL 130 - 159 mg/dl BORDERLINE HIGH 160 - 189 mg/dl HIGH >190 mg/dl VERY HIGH Performed By: #### C VDTBH #### [facility] [address] [place] [address] Dr. Ekta Funk Triglyceride [Mass/Vol] 143 mg/dL Normal <=150 [facility] Comment on above: Performed By: #### C VDTBH #### [facility] [address] [address] [address] Ekta Funk VLDL CALC 28.6 mg/dL Normal [facility] Comment on above: Performed By: #### C VDTBH #### [facility] [address] [place] [address] Dr. Ekta Funk PROF 14(COMP METB)on 023 Albumin [Mass/Vol] 2.8 g/dL Critically low 3.4-5.0 [facility] Comment on above: Performed By: #### C VDTBH #### [facility] [address] [place] [address] Dr. Ekta Funk Albumin/Globulin [Mass ratio] 0.7 {ratio} Normal [facility] Comment on above: Performed By: #### C VDTBH #### [facility] [address] [place] [address] Dr. Ekta Funk ALP [Catalytic activity/Vol] 90 U/L Normal 46-116 [facility] Comment on above: Performed By: #### C VDTBH #### [facility] [address] [place] [address] Dr. Ekta Funk ALT [Catalytic activity/Vol] 26 U/L Normal 14-59 [facility] Comment on above: Performed By: #### C VDTBH #### [facility] [address] [place] [address] Dr. Ekta Funk Anion gap [Moles/Vol] 14.5 mmol/L Normal [facility] Comment on above: Performed By: #### C VDTBH #### [facility] [address] [address] [address] Ekta Funk AST [Catalytic activity/Vol] 14 U/L Critically low 15-37 [facility] Comment on above: Performed By: #### C VDTBH #### [facility] [address] [place] [address] Dr. Ekta Funk Bilirubin [Mass/Vol] 0.4 mg/dL Normal 0.2-1.0 [facility] Comment on above: Performed By: #### C VDTBH #### [facility] [address] [place] [address] Dr. Ekta Funk Calcium [Mass/Vol] 8.9 mg/dL Normal 8.5-10.1 [facility] Comment on above: Performed By: #### C VDTBH #### [facility] [address] [place] [address] Dr. Ekta Funk Chloride [Moles/Vol] 106 mmol/L Normal 98-107 [facility] Comment on above: Performed By: #### C VDTBH #### [facility] [address] [place] [address] Dr. Ekta Funk CO2 [Moles/Vol] 23.5 mmol/L Normal 21.0-32.0 [facility] Comment on above: Performed By: #### C VDTBH #### [facility] [address] [place] [address] Dr. Ekta Funk Creatinine [Mass/Vol] 1.70 mg/dL Critically high 0.55-1.02 [facility] Comment on above: Performed By: #### C VDTBH #### [facility] [address] [address] [address] Ekta Funk EGFR-AF PUERTO RICAN 36 mL/min/1.73m2 Critically low >=60 [facility] Comment on above: Performed By: #### C VDTBH #### [facility] [address] [address] [address] Ekta Funk EGFR-NON AF PUERTO RICAN 29 mL/min/1.73m2 Critically low >=60 [facility] Comment on above: Performed By: #### C VDTBH #### [facility] [address] [address] [address] Ekta Funk Globulin (S) [Mass/Vol] 4.0 g/dL Normal [facility] Comment on above: Performed By: #### C VDTBH #### [facility] [address] [place] [address] Dr. Ekta Funk Glucose [Mass/Vol] 99 mg/dL Normal 74-106 [facility] Comment on above: Performed By: #### C VDTBH #### [facility] [address] [place] [address] Dr. Ekta Funk Potassium [Moles/Vol] 5.0 mmol/L Normal 3.5-5.1 [facility] Comment on above: Performed By: #### C VDTBH #### [facility] [address] [place] [address] Dr. Ekta Funk Protein [Mass/Vol] 6.8 g/dL Normal 6.4-8.2 [facility] Comment on above: Performed By: #### C VDTBH #### [facility] [address] [place] [address] Dr. Ekta Funk Sodium [Moles/Vol] 139 mmol/L Normal 136-145 [facility] Comment on above: Performed By: #### C VDTBH #### [facility] [address] [place] [address] Dr. Ekta Funk Urea nitrogen [Mass/Vol] 36.0 mg/dL Critically high 7.0-18.0 [facility] Comment on above: Performed By: #### C VDTBH #### [facility] [address] [place] [address] Dr. Ekta Funk Urea nitrogen/Creatinine [Mass ratio] 21.2 mg/mg Normal [facility] Comment on above: Performed By: #### C VDTB #### [facility] [address] [place] [address] Dr. Ekta Funk TSHon 10-18-2022 TSH 0.910 uIU/mL Normal 0.358-3.740 [facility] Comment on above: Performed By: #### C VDTB #### [facility] [address] [place] [address] Dr. Ekta Funk Covid-19 PCR ([facility])on 09-10 SARS-CoV-2 (COVID-19) RNA GANESH+probe Ql (Unsp spec) Detected Abnormal NOT DETECTED [facility] Comment on above: Result Comment: This test is not yet approved or cleared by the [place] FDA. When there are no FDA-approved or cleared tests available, and other criteria are met, FDA can make tests available under an emergency access mechanism called an Emergency Use Authorization (EUA). The EUA for this test is supported by the [employer] of Health and Human Service's declaration that [...] used). Performed By: #### C MP #### [facility] [address] [place] [address] Dr. Ekta Funk INFLUENZA A AND B AGon 09-25 INFLUANEGH SEE BELOW Normal [facility] Comment on above: Result Comment: Nega tive for Flu A protein angiten. Infection due to Flu A cannot be ruled out. Flu A angiten in the sample may be below the detection limit of the test. Performed By: #### B 12FOL, VITAD, IRON #### [facility] [address] [place] [address] Dr. Ekta Funk INFLUBNEGH SEE BELOW Normal [facility] Comment on above: Result Comment: Nega tive for Flu B protein antigen. Infection due to Flu B cannot be ruled out. Flu B antigen in the sample may be below the detection limit of the test. Performed By: #### B 12FOL, VITAD, IRON #### [facility] [address] [address] [address] Ekta Funk INFLUENZA A AG Negative Normal NEGATIVE SEE COMMENT [facility] Comment on above: Performed By: #### B 12FOL, VITAD, IRON #### [facility] [address] [address] [address] Ekta Funk INFLUENZA B AG Negative Normal NEGATIVE SEE COMMENT [facility] Comment on above: Performed By: #### B 12FOL, VITAD, IRON #### [facility] [address] [address] [address] Ekta Funk US CAROTID ART BILon [...] by: GODWIN BECK Date: 2022-05-26 16:06 Normal [facility] MRI BRAIN WO CONon 2 MRI [...] by: VISHNU MARIE Date: 2022-05-25 10:45 Normal [facility] ECHOCARDIO M/2D COMPLETEon 0 05-24-2022 ECHOCARDIO M/2D COMPLETE Patient: SHEILA MAC Exam Date: 05/24/2022 : 1950 Gender:F Ordering : DR KRZYSZTOF HARP . Admission #: [id number] Family : Order #: [id number] CLICK HERE TO VIEW EXAM ECHOCARDIOGRAM REPORT [...] M.D. on 05/24/2022 at 14:45 Normal [facility] BASIC METABOLIC PANELon 11-08 Calcium mass conc 9.4 mg/dL Normal 8.6-10.[address] [facility] Comment on above: Order Comment: No: D o not add to previous draw Performed By: #### 0 0071 #### [facility] [address] [place] [address], [place] Chloride molar conc 108 mmol/L High 98-107 [facility] Comment on above: Order Comment: No: D o not add to previous draw Performed By: #### 0 0071 #### [facility] [address] [place] [address], [place] CO2 molar conc 22 mmol/L Normal 21-31 [facility] Comment on above: Order Comment: No: D o not add to previous draw Performed By: #### 0 0071 #### [facility] [address] [place] [address], [place] Creatinine mass conc 1.18 mg/dL Normal 0.60-1.20 [facility] Comment on above: Order Comment: No: D o not add to previous draw Performed By: #### 0 0071 #### [facility] [address] [place] [address], [place] GFR/1.73 sq M predicted among blacks MDRD vol rate/area (S/P/Bld) 55 ml/min/1.73sq m Abnormal >60 [facility] Comment on above: Order Comment: No: D o not add to previous draw Performed By: #### 0 0071 #### [facility] [address] [place] [address], [place] GFR/1.73 sq M predicted among non-blacks MDRD vol rate/area (S/P/Bld) 45 ml/min/1.73sq m Abnormal >60 [facility] Comment on above: Order Comment: No: D o not add to previous draw Performed By: #### 0 0071 #### [facility] [address] [place] [address], [place] Glucose mass conc 166 mg/dL High 70-100 [facility] Comment on above: Order Comment: No: D o not add to previous draw Performed By: #### 0 0071 #### [facility] [address] [place] [address], [facility] Potassium molar conc 4.1 mmol/L Normal 3.5-5.1 [facility] Comment on above: Order Comment: No: D o not add to previous draw Performed By: #### 0 0071 #### [facility] [address] [place] [address], [facility] Sodium molar conc 140 mmol/L Normal 136-145 [facility] Comment on above: Order Comment: No: D o not add to previous draw Performed By: #### 0 0071 #### [facility] [address] [place] [address], [facility] Urea nitrogen mass conc 21 mg/dL Normal 7-25 [facility] Comment on above: Order Comment: No: D o not add to previous draw Performed By: #### 0 0071 #### [facility] [address] [place] [address], [facility] CBC COMPLETE BLOOD COUNTon 0 - Erythrocyte distribution width Ratio (RBC) 12.9 % Normal 11.5-15.0 [facility] Comment on above: Order Comment: No: D o not add to previous draw Performed By: #### 5 [id number] #### [facility] [address] [place] [address], [facility] Hematocrit Volume Fraction (Bld) 36.7 % Normal 36.0-45.0 [facility] Comment on above: Order Comment: No: D o not add to previous draw Performed By: #### 5 0608 #### [facility] [address] [place] [address], [facility] Hemoglobin mass conc (Bld) 12.4 g/dL Normal 12.0-15.0 [facility] Comment on above: Order Comment: No: D o not add to previous draw Performed By: #### 5 0608 #### [facility] [address] [place] [address], [facility] MCH Entitic mass (RBC) 31.2 pg Normal 27.0-33.0 [facility] Comment on above: Order Comment: No: D o not add to previous draw Performed By: #### 5 0608 #### [facility] [address] [place] [address], [facility] MCHC mass conc (RBC) 33.8 g/dL Normal 32.0-35.0 [facility] Comment on above: Order Comment: No: D o not add to previous draw Performed By: #### 5 0608 #### [facility] [address] [place] [address], [facility] MCV Entitic volume (RBC) 92.4 fL Normal 82.0-98.0 [facility] Comment on above: Order Comment: No: D o not add to previous draw Performed By: #### 5 0608 #### [facility] [address] [address], [facility] [facility] Nucleated RBC/100 WBC Ratio (Bld) 0 % Normal 0-0 [facility] Comment on above: Order Comment: No: D o not add to previous draw Performed By: #### 5 [id number] #### [facility] [address] [place] [address], [facility] PLAT CNT 227 10*3/uL Normal 150-400 The [facility] Comment on above: Order Comment: No: D o not add to previous draw Performed By: #### 5 [id number] #### [facility] [address] [place] [address], [facility] RBC #/vol (Bld) 3.97 10*6/uL Normal 3.80-5.[address] [facility] Comment on above: Order Comment: No: D o not add to previous draw Performed By: #### 5 [id number] #### [facility] [address] [place] [address], [facility] WBC #/vol (Bld) 5.55 10*3/uL Normal 4.00-10.60 [facility] Comment on above: Order Comment: No: D o not add to previous draw Performed By: #### 5 [id number] #### [facility] [address] Cardiovascular Lab Reporton 11-20-2018 Cardiovascular Lab Report [facility] Patient Name: [facility] Sheila MR #: [id number] Department of Physician: [facility] Shellie Gaspar M.D. Division of Service Date: 11/20/2018 Cardiology Birthdate: 1950 Adult Cardiovascular Room #: 3AB [id number] [facility] [address] [place] [address] Cardiovascular Laboratory Report INDICATION: The patient is a 68-year-old woman who was evaluated in Cardiology Clinic because of new onset symptoms of shortness of breath on mild exertion. Her stress test showed evidence of pyihw-lr-lorilfvl area of inferoapical ischemia; because of that, she was referred for cardiac catheterization. PROCEDURES: 1. Right heart catheterization. 2. Bilateral selective coronary angiography. 3. Limited right femoral angiography. METHOD: Procedure was explained patient with risks and benefits. She signed informed consent. 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 The right groin area was prepped and draped in usual fashion. Using micropuncture technique, the right common femoral artery was accessed. The inner cannula was advanced. Limited femoral angiography was performed followed by upsizing to a 6-Algerian x 11 cm sheath. Access was also obtained using the same technique in the right common femoral vein and a 6-Algerian x 11 cm sheath was placed. A 6-Algerian Michel catheter was used for right heart catheterization with measurement of pressures and calculation of cardiac output using the estimated Ivory method. Michel catheter was removed. Bilateral selective coronary angiography was then performed using 6-Algerian JL4 and JR4 diagnostic catheters. Catheters were [...] by: Bong Gaspar M.D. 11/24/2018 09:57 A Bnog Gaspar M.D. Date Dict: 11/20/2018/09:00 Cyndy/Bong Gaspar M.D. Date Trans: 11/20/2018 09:31 A/alvina [id number] cc: Krzysztof Harp M.D. [address] [facility] [id number] Normal [facility] BASIC METABOLIC PANELon 11-08 Calcium mass conc 9.5 mg/dL Normal 8.6-10.3 [facility] Comment on above: Order Comment: No: D o not add to previous draw Performed By: #### 0 0071 #### [facility] [address] [place] [address], [facility] Chloride molar conc 105 mmol/L Normal 98-107 The [facility] Comment on above: Order Comment: No: D o not add to previous draw Performed By: #### 0 0071 #### [facility] [address] [place] [address], [place] CO2 molar conc 24 mmol/L Normal 21-31 The [facility] Comment on above: Order Comment: No: D o not add to previous draw Performed By: #### 0 0071 #### [facility] [address] [place] [address], [place] Creatinine mass conc 1.42 mg/dL High 0.60-1.20 [facility] Comment on above: Order Comment: No: D o not add to previous draw Performed By: #### 0 0071 #### [facility] [address] [place] [address], [place] GFR/1.73 sq M predicted among blacks MDRD vol rate/area (S/P/Bld) 45 ml/min/1.73sq m Abnormal >60 The [facility] Comment on above: Order Comment: No: D o not add to previous draw Performed By: #### 0 0071 #### [facility] [address] [place] [address], [place] GFR/1.73 sq M predicted among non-blacks MDRD vol rate/area (S/P/Bld) 36 ml/min/1.73sq m Abnormal >60 [facility] Comment on above: Order Comment: No: D o not add to previous draw Performed By: #### 0 0071 #### [facility] [address] [place] [address], [place] Glucose mass conc 86 mg/dL Normal 70-100 [facility] Comment on above: Order Comment: No: D o not add to previous draw Performed By: #### 0 0071 #### [facility] [address] [place] [address], [facility] Potassium molar conc 4.2 mmol/L Normal 3.5-5.1 [facility] Comment on above: Order Comment: No: D o not add to previous draw Performed By: #### 0 0071 #### [facility] [address] [place] [address], [facility] Sodium molar conc 138 mmol/L Normal 136-145 [facility] Comment on above: Order Comment: No: D o not add to previous draw Performed By: #### 0 0071 #### [facility] [address] [place] [id number], [facility] Urea nitrogen mass conc 19 mg/dL Normal 7-25 [facility] Comment on above: Order Comment: No: D o not add to previous draw Performed By: #### 0 0071 #### [facility] [address] CBC COMPLETE BLOOD COUNTon 0 - Erythrocyte distribution width Ratio (RBC) 13.0 % Normal 11.5-15.0 [facility] Comment on above: Order Comment: No: D o not add to previous draw Performed By: #### 5 0608 #### [facility] [address] [place] [address], [facility] Hematocrit Volume Fraction (Bld) 38.3 % Normal 36.0-45.0 [facility] Comment on above: Order Comment: No: D o not add to previous draw Performed By: #### 5 0608 #### [facility] [address] [place] [id number], [facility] Hemoglobin mass conc (Bld) 12.6 g/dL Normal 12.0-15.0 [facility] Comment on above: Order Comment: No: D o not add to previous draw Performed By: #### 5 0608 #### [facility] [address] [place] [id number], [facility] MCH Entitic mass (RBC) 31.1 pg Normal 27.0-33.0 [facility] Comment on above: Order Comment: No: D o not add to previous draw Performed By: #### 5 0608 #### [facility] [address] MCHC mass conc (RBC) 32.9 g/dL Normal 32.0-35.0 [facility] Comment on above: Order Comment: No: D o not add to previous draw Performed By: #### 5 0608 #### [facility] [address] MCV Entitic volume (RBC) 94.6 fL Normal 82.0-98.0 [facility] Comment on above: Order Comment: No: D o not add to previous draw Performed By: #### 5 0608 #### [facility] [address] [facility] [address] Nucleated RBC/100 WBC Ratio (Bld) 0 % Normal 0-0 [facility] Comment on above: Order Comment: No: D o not add to previous draw Performed By: #### 5 0608 #### [facility] [address] [facility] [place] [address], [facility] PLAT CNT 266 10*3/uL Normal 150-400 [facility] Comment on above: Order Comment: No: D o not add to previous draw Performed By: #### 5 0608 #### [facility] [address] [facility] [address] RBC #/vol (Bld) 4.05 10*6/uL Normal 3.80-5.00 [facility] Comment on above: Order Comment: No: D o not add to previous draw Performed By: #### 5 0608 #### [facility] [address] WBC #/vol (Bld) 9.01 10*3/uL Normal 4.00-10.60 [facility] Comment on above: Order Comment: No: D o not add to previous draw Performed By: #### 5 0608 #### [facility] [address] PROTHROMBIN TIMEon 9 INR Coag RelTime (PPP) 1.07 {INR} Normal 0.91-1.16 [facility] Comment on above: [...] 1995;108:231S-246S. Performed By: #### 5 6101 #### [facility] [address] Prothrombin time (PT) Coag time (PPP) 13.9 s Normal 12.3-14.[address] [facility] Comment on above: Order Comment: No: D o not add to previous draw Result Comment: ALL RESULTS MUST BE INTERPRETED WITH RESPECT TO BLOOD DRAWING ARTIFACT OR DILUTION ERROR OF ANTICOAGULANT AT THE TIME OF SAMPLING. Performed By: #### 5 6101 #### [facility] [address] Encounters Encounter Date Encounter Type Care Provider Facility Start: 01-16-2023 [facility] . Facility :[facility] Start: 01-15-2023 End: 01-15-2023 ambulatory APRIL CASTANEDA . Facility:[facility] Start: 01-10-2023 End: 01-11-[address] KRZYSZTOF HARP . Facility:[facility] Start: 12-15-2022 End: 12-15-2022 ambulatory APRIL CASTANEDA . Facility:[facility] Start: 12-15-2022 ambulatory RODRIGUEZ RIVERA [facility] Start: 12-05-2022 End: 12-06-[address] [...] Facility:[facility]1 Start: 05-11-2022 End: 05-12-[address] KRZSYZTOF HARP . Facility:[facility] Start: 02-14-2022 End: 02-15-2022 [...] CENTER Payers Date Payer Category Payer Unknown [id number] 1950 Unknown [id number] 2.16.8 40.1.205117.3.579.2.647 1950 Unknown [id number] 2.16.8 40.1.582288.3.579.2.647 1950 Unknown [id number] 2.16.8 40.1.083687.3.579.2.647 1950 Unknown [id number] 2.16.8 40.1.964189.3.579.2.647 1950 Unknown [id number] 2.16.8 40.1.254866.3.579.2.647 1950 Unknown [id number] 2.16.84 0.1.234658.3.579.2.593 1950 Unknown [id number] 2.16.84 0.1.848352.3.579.2.593 1950 Unknown [id number] 2.16.84 0.1.975376.3.579.2.593 1950 Unknown [id number] 2.16.84 0.1.819507.3.579.2.593 1950 Unknown [id number] 2.16.84 0.1.264680.3.579.2.593 1950 Unknown [id number] 2.16.84 0.1.734219.3.579.2.593 1950 Unknown [id number] 2.16.84 0.1.537142.3.579.2.593 1950 Unknown [id number] 2.16.84 0.1.999137.3.579.2.593 1950 Unknown [id number] 2.16.84 0.1.320658.3.579.2.593 1950 Unknown [id number] 2.16.84 0.1.611672.3.579.2.593 1950 Unknown [id number] 2.16.84 0.1.214233.3.579.2.593 1950 Unknown [id number] 2.16.84 0.1.622449.3.579.2.593 1950 Unknown [id number] 2.16.84 0.1.721275.3.579.2.593 1948 Unknown [id number] 2.16.84 0.1.107923.3.579.2.593 1950 Unknown [id number] 2.16.84 0.1.109649.3.579.2.593 1950 Unknown [id number] 2.16.84 0.1.269622.3.579.2.593 1950 Unknown [id number] 2.16.84 0.1.133699.3.579.2.593 1950 Unknown [id number] 2.16.84 0.1.902324.3.579.2.593 1950 Unknown [id number] 2.16.84 0.1.210976.3.579.2.593 Medicare [id number] Unknown Progress note 12-15-2022 Note Date & [...] She will be (more content not included)... [facility] Progress note 12-15-2022 Note Date & Type Note Facility 12-15-2022 Note Review of Systems Cardiovascular: Positive for leg swelling. Respiratory: Positive for shortness of breath. Skin: Positive for color change. Neurological: Positive for headaches. All other systems reviewed and are negative. [facility] Clinical Note 07-25-2022 Note Date & [...] authenticated by: VISHNU MARIE Date: 2022-07-25 13:25 [facility] Clinical Note 05-11-2022 Note Date & [...] by: VISHNU MARIE Date: 2022-05-11 12:51 [facility] Clinical Note 02-14-2022 Note Date & Type Note Facility 02-14-2022 Note PROCEDURE: XR KNEE L T 4V or > COMPARISON: None. HISTORY: Osteoarthritis FINDINGS: BONES:No fracture, acute abnormality, or significant arthropathy. SOFT TISSUES:Negative. No visible soft tissue swelling. EFFUSION:Moderate suprapatellar joint effusion OTHER: Negative. IMPRESSION: Moderate joint effusion Electronically authenticated by: GODWIN BECK Date: 2022-02-14 17:30 [facility] Summary Purpose Family History No Family History Records FoundNo Family History Records FoundNo Family History Records Found Advance Directives No Advanced Directives Records FoundNo Advanced Directives Records FoundNo Advanced Directives Records Found Additional Source Comments INFORMATION SOURCE (unrecogn ized section and content) DATE CREATED AUTHOR 11/24/2018 [facility] DATE CREATED AUTHOR AUTHOR'S ORGANIZ ATION 12/19/2022 [facility] DATE CREATED AUTHOR AUTHOR'S ORGANIZ ATION 01/18/2023 [facility] FOR RECORDS PERTAINING TO PATIENTS [...] BE BASED ON THE PRIMARY CLINICAL RECORDS. [facility] [employer] [facility]. provides no warranty or guarantee of the accuracy or completeness of information in this document.
[2023-12-28 11:08] LABS: Alanine Aminotransferase 18 U/L (14-59); Albumin Globulin Ratio 0.7; Alkaline Phosphatase 113 U/L (46-116); Amylase 80 U/L (25-115); Anion Gap 15.8; Aspartate Amino Transferase 15 U/L (15-37); BUN Creatinine Ratio 17.7; Bilirubin Total 0.4 mg/dL (0.2-1.0); Calcium 9.5 mg/dL (8.5-10.1); Carbon Dioxide 22.5 mmol/L (21.0-32.0); Chloride 108 mmol/L (98-107); Estimated GFR (African America 24 (>=60); Estimated GFR (Non-African Ame 20 (>=60); Globulin 4.2 g/dL; Glucose 97 mg/dL (74-106); Potassium 4.3 mmol/L (3.5-5.1); Sodium 142 mmol/L (136-145); Total Protein 7.2 g/dL (6.4-8.2)
== END 2023-12-28 09:31 | disposition home or self-care (01) ==
LOC: LAB 09:32
PROVIDERS: PCP Family Medicine; Visit Provider Family Medicine
DX: K85.90 Acute pancreatitis without necrosis or infection, unspecified (principal)
CPT/HCPCS: 36415; 80053; 82150; 83690

== ENCOUNTER 2024-01-03 10:00 | Outpatient (OUT) | payer MEDICARE, SELFPAY ==
--- NOTE | 2024-01-03 10:08 | US_ITS ---
The [address] [address] Patient Name: EDIN SAMANIEGO MRN: [id number] date: 1950 Sex: F Assigned Patient Location: US Current Patient Location: LAB Accession/Order Number: [id number] Exam Date: 01/03/2024 10:09 Report Date: 01/03/2024 10:55 At the request of: KRZYSZTOF THOMPSON Procedure: US right upper quadrant EXAMINATION: US right upper quadrant HISTORY: PANCREATITIS K86.1 ; abdominal pressure after eating COMPARISON: CT abdomen pelvis 12/27/2023 TECHNIQUE: Transabdominal evaluation of the right upper quadrant. FINDINGS: LIVER: Normal size and echotexture. Color Doppler demonstrates patent hepatic veins. PORTAL VEIN: Duplex Doppler demonstrates normal hepatopetal flow pattern with flow velocity averaging 29 cm/s. GALLBLADDER: Contains a 7 mm mobile stone. No wall thickening or free fluid. Negative sonographic Montgomery's sign. BILIARY: No abnormal dilation or stones. Common bile duct diameter is within normal limits. PANCREASE: No visible mass, abnormal atrophy, or duct dilation. KIDNEY: No hydronephrosis. No visible mass or stones. Size: 8.8 x 3.7 x 3.0 cm US/US right upper quadrant IMPRESSION: 1. Cholelithiasis. No ultrasound evidence of acute cholecystitis. 2. Slightly limited evaluation of the pancreas, but no findings to suggest pancreatitis. Electronically authenticated by: DANIEL PINEDA Date: 01/03/2024 10:55
--- OUTSIDE RECORDS SUMMARY | 2024-01-03 10:21 | XMS_ITS | CCD ---
Author Organization [facility] Care Team Providers Care [employer] Title Clerk Name Role Phone PHYSICIAN, DEFAULT Admitting Unavailable [...] Morphine; 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: [MORPHINE] Drug Allergy 7 [facility] Repository (3 sources) NSAIDs; 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: [NSAIDS (NON-STEROIDAL ANTI-INFLAMMATORY DRUG)] Drug allergy (disorder) 9 [facility] Repository (1 source) Penicillin Drug Allergy 9 [facility] Repository (1 source) predniSONE Drug Allergy 9 [facility] Repository (2 sources) Iodinated Contrast- Oral and IV Dye Drug allergy (disorder) 5 [facility] Repository (2 sources) Penicillins; 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: [PENICILLINS] Propensity to adverse reactions to drug (disorder) 5 [facility] Repository (1 source) IODINATED CONTRAST MEDIA; 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: [IODINATED CONTRAST MEDIA] Propensity to adverse reactions to drug (disorder) 3 [facility] Repository (1 source) levoFLOXacin Drug Allergy 3 [facility] Repository (1 source) meloxicam Drug Allergy 3 [facility] Repository Problems Active Problems Problem Classification [...] Onset: 01-17-2023 Chronic Other aftercare (2 sources) 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 B1, Whole Blood 118.1 nmol/L Normal 66.5-200.0 [facility] Comment on above: Performed By: #### C BC #### [facility] [address] [place] [address] Dr. Ekta Funk BNPon 01-10-2023 Natriuretic peptide B (Bld) [Mass/Vol] 980.0 pg/mL Critically high <=900.0 [facility] Comment on above: Performed By: #### C VDTBH #### [facility] [address] [place] [address] Dr. Ekta Funk CBC AUTO DIFFon 01-10-2023 BASO # 0.1 103/ul Normal 0.0-0.1 [facility] Comment on above: Performed By: #### C MP #### [facility] [address] [place] [address] Dr. Ekta Funk Basophils/100 WBC (Bld) 1.0 % Normal 0.2-2.0 [facility] Comment on above: Performed By: #### C MP #### [facility] [address] [place] [address] Dr. Ekta Funk EO # 0.4 103/ul Normal 0.0-0.7 [facility] Comment on above: Performed By: #### C MP #### [facility] [address] [place] [address] Dr. Ekta Funk Eosinophils/100 WBC (Bld) 3.7 % Normal 0.9-7.0 [facility] Comment on above: Performed By: #### C MP #### [facility] [address] [place] [address] Dr. Ekta Funk Erythrocyte distribution width (RBC) [Ratio] 13.2 % Normal 11.0-15.0 [facility] Comment on above: Performed By: #### C MP #### [facility] [address] [place] [address] Dr. Ekta Fukn Hematocrit (Bld) [Volume fraction] 35.1 % Critically low 36.0-48.0 [facility] Comment on above: Performed By: #### C MP #### [facility] [address] [place] [address] Dr. Ekta Funk Hemoglobin (Bld) [Mass/Vol] 11.3 g/dL Critically low 12.0-16.0 [facility] Comment on above: Performed By: #### C MP #### [facility] [address] [place] [address] Dr. Ekta Funk IG # 0.04 10e3/ul Critically high 0.00-0.03 [facility] Comment on above: Performed By: #### C MP #### [facility] [address] [place] [address] Dr. Ekta Funk IG % 0.4 % Normal 0.0-0.5 [facility] Comment on above: Performed By: #### C MP #### [facility] [address] [place] [address] Dr. Ekta Funk LYMPH # 2.0 103/ul Normal 1.2-3.8 [facility] Comment on above: Performed By: #### C MP #### [facility] [address] [place] [address] Dr. Ekta Funk Lymphocytes/100 WBC (Bld) 20.8 % Normal 20.5-60.0 [facility] Comment on above: Performed By: #### C MP #### [facility] [address] [place] [address] Dr. Ekta Funk MANUAL DIFF REQ NO Normal [facility] Comment on above: Performed By: #### C MP #### [facility] [address] [place] [address] Dr. Ekta Funk MCH (RBC) [Entitic mass] 32.3 pg Normal 26.7-34.0 [facility] Comment on above: Performed By: #### C MP #### [facility] [address] [address] [address] Ekta Funk MCHC (RBC) [Mass/Vol] 32.2 g/dL Normal 29.9-35.2 [facility] Comment on above: Performed By: #### C MP #### [facility] [address] [address] [address] Ekta Funk MCV (RBC) [Entitic vol] 100.3 fL Critically high 81.0-99.0 [facility] Comment on above: Performed By: #### C MP #### [facility] [address] [place] [address] Dr. Ekta Funk MONO # 0.8 103/ul Normal 0.3-0.8 [facility] Comment on above: Performed By: #### C MP #### [facility] [address] [place] [address] Dr. Ekta Funk Monocytes/100 WBC (Bld) 7.9 % Normal 1.7-12.0 [facility] Comment on above: Performed By: #### C MP #### [facility] [address] [place] [address] Dr. Ekta Funk NEUT # 6.4 103/ul Normal 1.4-6.5 [facility] Comment on above: Performed By: #### C MP #### [facility] [address] [place] [address] Dr. Ekta Funk Neutrophils/100 WBC (Bld) 66.2 % Normal 43.0-75.0 [facility] Comment on above: Performed By: #### C MP #### [facility] [address] [place] [address] Dr. Ekta Funk Platelet mean volume (Bld) [Entitic vol] 9.6 fL Normal 9.5-13.5 [facility] Comment on above: Performed By: #### C MP #### [facility] [address] [place] [address] Dr. Ekta Funk PLT 255 103/ul Normal 150-450 [facility] Comment on above: Performed By: #### C MP #### [facility] [address] [address] [address] Ekta Funk RBC 3.50 106/ul Critically low 4.20-5.40 [facility] Comment on above: Performed By: #### C MP #### [facility] [address] [address] [address] Ekta Funk WBC 9.7 103/ul Normal 4.0-11.0 [facility] Comment on above: Performed By: #### C MP #### [facility] [address] [place] [address] Dr. Ekta Funk CRPon 01-10-2023 CRP [Mass/Vol] mg/L Normal <=1.0 [facility] Comment on above: Performed By: #### C BC #### [facility] [address] [place] [address] Dr. Ekta Funk FREE THYROXINE INDEX T7on FTI 2.62 Normal 1.30-4.50 [facility] Comment on above: Performed By: #### C BC #### [facility] [address] [place] [address] Dr. Ekta Funk T3U 32.0 % Normal 30.0-39.0 [facility] Comment on above: Performed By: #### C BC #### [facility] [address] [place] [address] Dr. Ekta Funk T4 [Mass/Vol] 8.20 ug/dL Normal 4.80-13.90 [facility] Comment on above: Performed By: #### C BC #### [facility] [address] [place] [address] Dr. Ekta Funk IRONon 01-10-2023 Iron [Mass/Vol] 61.0 ug/dL Normal 50.0-170.0 [facility] Comment on above: Performed By: #### B 12FOL, VITAD, IRON #### [facility] [address] [place] [address] Dr. Ekta Funk PROF 14(COMP METB)on 023 Albumin [Mass/Vol] 2.9 g/dL Critically low 3.4-5.0 [facility] Comment on above: Performed By: #### C VDTBH #### [facility] [address] [place] [address] Dr. Ekta Funk Albumin/Globulin [Mass ratio] 0.6 {ratio} Normal [facility] Comment on above: Performed By: #### C VDTBH #### [facility] [address] [place] [address] Dr. Ekta Funk ALP [Catalytic activity/Vol] 101 U/L Normal 46-116 [facility] Comment on above: Performed By: #### C VDTBH #### [facility] [address] [place] [address] Dr. Ekta Funk ALT [Catalytic activity/Vol] 16 U/L Normal 14-59 [facility] Comment on above: Performed By: #### C VDTBH #### [facility] [address] [place] [address] Dr. Ekta Funk Anion gap [Moles/Vol] 14.6 mmol/L Normal [facility] Comment on above: Performed By: #### C VDTBH #### [facility] [address] [place] [address] Dr. Ekta Funk AST [Catalytic activity/Vol] 15 U/L Normal 15-37 [facility] Comment on above: Performed By: #### C VDTBH #### [facility] [address] [place] [address] Dr. Ekta Funk Bilirubin [Mass/Vol] 0.4 mg/dL Normal 0.2-1.0 [facility] Comment on above: Performed By: #### C VDTBH #### [facility] [address] [place] [address] Dr. Ekta Funk Calcium [Mass/Vol] 9.2 mg/dL Normal 8.5-10.1 [facility] Comment on above: Performed By: #### C VDTBH #### [facility] [address] [place] [address] Dr. Ekta Funk Chloride [Moles/Vol] 107 mmol/L Normal 98-107 [facility] Comment on above: Performed By: #### C VDTBH #### [facility] [address] [address] [address] Ekta Funk CO2 [Moles/Vol] 24.4 mmol/L Normal 21.0-32.0 [facility] Comment on above: Performed By: #### C VDTBH #### [facility] [address] [place] [address] Dr. Ekta Funk Creatinine [Mass/Vol] 2.02 mg/dL Critically high 0.55-1.02 [facility] Comment on above: Performed By: #### C VDTBH #### [facility] [address] [place] [address] Dr. Ekta Funk EGFR-AF CUBAN 29 mL/min/1.73m2 Critically low >=60 [facility] Comment on above: Performed By: #### C VDTBH #### [facility] [address] [place] [address] Dr. Ekta Funk EGFR-NON AF CUBAN 24 mL/min/1.73m2 Critically low >=60 [facility] Comment on above: Performed By: #### C VDTBH #### [facility] [address] [place] [address] Dr. Ekta Funk Globulin (S) [Mass/Vol] 4.5 g/dL Normal [facility] Comment on above: Performed By: #### C VDTBH #### [facility] [address] [place] [address] Dr. Ekta Funk Glucose [Mass/Vol] 103 mg/dL Normal 74-106 [facility] Comment on above: Performed By: #### C VDTBH #### [facility] [address] [place] [address] Dr. Ekta Funk Potassium [Moles/Vol] 5.0 mmol/L Normal 3.5-5.1 [facility] Comment on above: Performed By: #### C VDTBH #### [facility] [address] [place] [address] Dr. Ekta Funk Protein [Mass/Vol] 7.4 g/dL Normal 6.4-8.2 [facility] Comment on above: Performed By: #### C VDTBH #### [facility] [address] [place] [address] Dr. Ekta Funk Sodium [Moles/Vol] 141 mmol/L Normal 136-145 [facility] Comment on above: Performed By: #### C VDTBH #### [facility] [address] [place] [address] Dr. Ekta Funk Urea nitrogen [Mass/Vol] 23.0 mg/dL Critically high 7.0-18.0 [facility] Comment on above: Performed By: #### C VDTBH #### [facility] [address] [place] [address] Dr. Ekta Funk Urea nitrogen/Creatinine [Mass ratio] 11.4 mg/mg Normal [facility] Comment on above: Performed By: #### C VDTBH #### [facility] [address] [place] [address] Dr. Ekta Funk TSHon 01-10-2023 TSH 1.793 uIU/mL Normal 0.358-3.740 [facility] Comment on above: Performed By: #### C VDTBH #### [facility] [address] [place] [address] Dr. Ekta Funk VIT B12 AND FOLATEon 023 Cobalamin (Vitamin B12) [Mass/Vol] 175.0 pg/mL Critically low 193.0-986.0 [facility] Comment on above: Performed By: #### B 12FOL, VITAD, IRON #### [facility] [address] [place] [address] Dr. Ekta Funk FOLATE 10.30 ng/mL Normal 8.60-58.90 [facility] Comment on above: Performed By: #### B 12FOL, VITAD, IRON #### [facility] [address] [place] [address] Dr. Ekta Funk VITAMIN D 25 OHon 01-10-2023 VIT D 25-OH 24.0 ng/mL Normal [facility] Comment on above: Performed By: #### B 12FOL, VITAD, IRON #### [facility] [address] [place], [place] [address] Dr. Ekta Funk VIT D RANGES SEE BELOW Normal [facility] Comment on above: Result Comment: <20 ng/mL Vit D deficient 20 - <30 ng/mL Vit D insufficient 30 - 100 ng/mL Vit D sufficient >100 ng/mL Potential Toxicity Performed By: #### B 12FOL, VITAD, IRON #### [facility] [address] [place], [place] [address] Dr. Ekta Funk Office Visiton 12-15-2022 Follow-up visit [id number] Sheila Mac 1950 F Date Provider Department Center 12/15/2022 [id number] RIVERA [facility] No family history on file Level of Service:10062 ME OFFICE/OUTPATIENT ESTABLISHED MOD MDM 30-39 MIN Reason for Visit and Comments: Follow-up [988619] - Is here f/u stress test pt states she had Bruises all over both legs symptoms stated a week ago also stated legs are swollen and burning Normal [facility] NM STRESS/REST MULTIon 12-05 NM STRESS/REST MULTI Patient: SHEILA MAC Exam Date: 12/05/2022 : 1950 Gender:F Ordering : DR KRZYSZTOF HARP . Admission #: [id number] Family : Order #: [id number] CLICK HERE TO VIEW EXAM RADIOLOGY REPORT [...] Marie M.D. on 12/06/2022 at 07:26 Normal [facility] ECHOCARDIO M/2D COMPLETEon 0 11-27-2022 ECHOCARDIO M/2D COMPLETE Patient: SHEILA MAC Exam Date: 11/27/2022 : 1950 Gender:F Ordering : DR KRZYSZTOF HARP . Admission #: [id number] Family : Order #: [id number] CLICK HERE TO VIEW EXAM ECHOCARDIOGRAM REPORT [...] M.D. on 11/27/2022 at 14:39 Normal [facility] CBC AUTO DIFFon 11-26-2022 BASO # 0.0 103/ul Normal 0.0-0.1 [facility] Comment on above: Performed By: #### I NSULIN #### [facility] [address] [address] [address] Ekta Funk Basophils/100 WBC (Bld) 0.6 % Normal 0.2-2.0 [facility] Comment on above: Performed By: #### I NSULIN #### [facility] [address] [address] [address] Ekta Funk EO # 0.3 103/ul Normal 0.0-0.7 [facility] Comment on above: Performed By: #### I NSULIN #### [facility] [address] [address] [address] Ekta Funk Eosinophils/100 WBC (Bld) 4.8 % Normal 0.9-7.0 [facility] Comment on above: Performed By: #### I NSULIN #### [facility] [address] [address] [address] Ekta Funk Erythrocyte distribution width (RBC) [Ratio] 13.3 % Normal 11.0-15.0 [facility] Comment on above: Performed By: #### I NSULIN #### [facility] [address] [address] [address] Ekta Funk Hematocrit (Bld) [Volume fraction] 29.1 % Critically low 36.0-48.0 [facility] Comment on above: Performed By: #### I NSULIN #### [facility] [address] [address] [address] Ekta Funk Hemoglobin (Bld) [Mass/Vol] 9.5 g/dL Critically low 12.0-16.0 [facility] Comment on above: Performed By: #### I NSULIN #### [facility] [address] [place] [address] Dr. Ekta Funk IG # 0.07 10e3/ul Critically high 0.00-0.03 [facility] Comment on above: Performed By: #### I NSULIN #### [facility] [address] [place] [address] Dr. Ekta Funk IG % 1.0 % Critically high 0.0-0.5 [facility] Comment on above: Performed By: #### I NSULIN #### [facility] [address] [place] [address] Dr. Ekta Funk LYMPH # 1.2 103/ul Normal 1.2-3.8 [facility] Comment on above: Performed By: #### I NSULIN #### [facility] [address] [place] [address] Dr. Ekta Funk Lymphocytes/100 WBC (Bld) 17.2 % Critically low 20.5-60.0 [facility] Comment on above: Performed By: #### I NSULIN #### [facility] [address] [place] [address] Dr. Ekta Funk MANUAL DIFF REQ NO Normal [facility] Comment on above: Performed By: #### I NSULIN #### [facility] [address] [place] [address] Dr. Ekta Funk MCH (RBC) [Entitic mass] 31.7 pg Normal 26.7-34.0 [facility] Comment on above: Performed By: #### I NSULIN #### [facility] [address] [place] [address] Dr. Ekta Funk MCHC (RBC) [Mass/Vol] 32.6 g/dL Normal 29.9-35.2 [facility] Comment on above: Performed By: #### I NSULIN #### [facility] [address] [place] [address] Dr. Ekta Funk MCV (RBC) [Entitic vol] 97.0 fL Normal 81.0-99.0 [facility] Comment on above: Performed By: #### I NSULIN #### [facility] [address] [place] [address] Dr. Ekta Funk MONO # 0.8 103/ul Normal 0.3-0.8 [facility] Comment on above: Performed By: #### I NSULIN #### [facility] [address] [place] [address] Dr. Ekta Funk Monocytes/100 WBC (Bld) 11.1 % Normal 1.7-12.0 [facility] Comment on above: Performed By: #### I NSULIN #### [facility] [address] [place] [address] Dr. Ekta Funk NEUT # 4.5 103/ul Normal 1.4-6.5 [facility] Comment on above: Performed By: #### I NSULIN #### [facility] [address] [place] [address] Dr. Ekta Funk Neutrophils/100 WBC (Bld) 65.3 % Normal 43.0-75.0 [facility] Comment on above: Performed By: #### I NSULIN #### [facility] [address] [place] [address] Dr. Ekta Funk Platelet mean volume (Bld) [Entitic vol] 9.4 fL Critically low 9.5-13.5 [facility] Comment on above: Performed By: #### I NSULIN #### [facility] [address] [place] [address] Dr. Ekta Funk PLT 263 103/ul Normal 150-450 [facility] Comment on above: Performed By: #### I NSULIN #### [facility] [address] [place] [address] Dr. Ekta Funk RBC 3.00 106/ul Critically low 4.20-5.40 [facility] Comment on above: Performed By: #### I NSULIN #### [facility] [address] [place] [address] Dr. Ekta Funk WBC 6.9 103/ul Normal 4.0-11.0 [facility] Comment on above: Performed By: #### I NSULIN #### [facility] [address] [address] [address] Ekta Funk PROF 14(COMP METB)on 023 Albumin [Mass/Vol] 2.2 g/dL Critically low 3.4-5.0 [facility] Comment on above: Performed By: #### C MP #### [facility] [address] [address] [address] Ekta Funk Albumin/Globulin [Mass ratio] 0.6 {ratio} Normal [facility] Comment on above: Performed By: #### C MP #### [facility] [address] [place] [address] Dr. Ekta Funk ALP [Catalytic activity/Vol] 82 U/L Normal 46-116 [facility] Comment on above: Performed By: #### C MP #### [facility] [address] [place] [address] Dr. Ekta Funk ALT [Catalytic activity/Vol] 13 U/L Critically low 14-59 [facility] Comment on above: Performed By: #### C MP #### [facility] [address] [address] [address] Ekta Funk Anion gap [Moles/Vol] 14.0 mmol/L Normal [facility] Comment on above: Performed By: #### C MP #### [facility] [address] [place] [address] Dr. Ekta Funk AST [Catalytic activity/Vol] 18 U/L Normal 15-37 [facility] Comment on above: Performed By: #### C MP #### [facility] [address] [address] [address] Ekta Funk Bilirubin [Mass/Vol] 0.4 mg/dL Normal 0.2-1.0 [facility] Comment on above: Performed By: #### C MP #### [facility] [address] [place] [address] Dr. Ekta Funk Calcium [Mass/Vol] 8.6 mg/dL Normal 8.5-10.1 [facility] Comment on above: Performed By: #### C MP #### [facility] [address] [address] [address] Ekta Funk Chloride [Moles/Vol] 108 mmol/L Critically high 98-107 [facility] Comment on above: Performed By: #### C MP #### [facility] [address] [address] [address] Ekta Funk CO2 [Moles/Vol] 19.6 mmol/L Critically low 21.0-32.0 [facility] Comment on above: Performed By: #### C MP #### [facility] [address] [address] [address] Ekta Funk Creatinine [Mass/Vol] 1.70 mg/dL Critically high 0.55-1.02 [facility] Comment on above: Performed By: #### C MP #### [facility] [address] [address] [address] Ekta Funk EGFR-AF CUBAN 36 mL/min/1.73m2 Critically low >=60 [facility] Comment on above: Performed By: #### C MP #### [facility] [address] [address] [address] Ekta Funk EGFR-NON AF CUBAN 29 mL/min/1.73m2 Critically low >=60 [facility] Comment on above: Performed By: #### C MP #### [facility] [address] [address] [address] Ekta Funk Globulin (S) [Mass/Vol] 3.6 g/dL Normal [facility] Comment on above: Performed By: #### C MP #### [facility] [address] [address] [address] Ekta Funk Glucose [Mass/Vol] 103 mg/dL Normal 74-106 [facility] Comment on above: Performed By: #### C MP #### [facility] [address] [address] [address] Ekta Funk Potassium [Moles/Vol] 4.6 mmol/L Normal 3.5-5.1 [facility] Comment on above: Performed By: #### C MP #### [facility] [address] [place] [address] Dr. Ekta Funk Protein [Mass/Vol] 5.8 g/dL Critically low 6.4-8.2 [facility] Comment on above: Performed By: #### C MP #### [facility] [address] [place] [address] Dr. Ekta Funk Sodium [Moles/Vol] 137 mmol/L Normal 136-145 [facility] Comment on above: Performed By: #### C MP #### [facility] [address] [place] [address] Dr. Ekta Funk Urea nitrogen [Mass/Vol] 26.0 mg/dL Critically high 7.0-18.0 [facility] Comment on above: Performed By: #### C MP #### [facility] [address] [place] [address] Dr. Ekta Funk Urea nitrogen/Creatinine [Mass ratio] 15.3 mg/mg Normal [facility] Comment on above: Performed By: #### C MP #### [facility] [address] [place] [address] Dr. Ekta Funk CBC AUTO DIFFon 11-25-2022 BASO # 0.1 103/ul Normal 0.0-0.1 [facility] Comment on above: Performed By: #### C BC #### [facility] [address] [place] [address] Dr. Ekta Funk Basophils/100 WBC (Bld) 0.7 % Normal 0.2-2.0 [facility] Comment on above: Performed By: #### C BC #### [facility] [address] [place] [address] Dr. Ekta Funk EO # 0.3 103/ul Normal 0.0-0.7 [facility] Comment on above: Performed By: #### C BC #### [facility] [address] [place] [address] Dr. Ekta Funk Eosinophils/100 WBC (Bld) 3.4 % Normal 0.9-7.0 [facility] Comment on above: Performed By: #### C BC #### [facility] [address] [address] [address] Ekta Funk Erythrocyte distribution width (RBC) [Ratio] 13.6 % Normal 11.0-15.0 [facility] Comment on above: Performed By: #### C BC #### [facility] [address] [place] [address] Dr. Ekta Funk Hematocrit (Bld) [Volume fraction] 32.1 % Critically low 36.0-48.0 [facility] Comment on above: Performed By: #### C BC #### [facility] [address] [place] [address] Dr. Ekta Funk Hemoglobin (Bld) [Mass/Vol] 10.3 g/dL Critically low 12.0-16.0 [facility] Comment on above: Performed By: #### C BC #### [facility] [address] [place] [address] Dr. Ekta Funk IG # 0.08 10e3/ul Critically high 0.00-0.03 [facility] Comment on above: Performed By: #### C BC #### [facility] [address] [place] [address] Dr. Ekta Funk IG % 0.9 % Critically high 0.0-0.5 [facility] Comment on above: Performed By: #### C BC #### [facility] [address] [place] [address] Dr. Ekta Funk LYMPH # 0.9 103/ul Critically low 1.2-3.8 [facility] Comment on above: Performed By: #### C BC #### [facility] [address] [place] [address] Dr. Ekta Funk Lymphocytes/100 WBC (Bld) 10.7 % Critically low 20.5-60.0 [facility] Comment on above: Performed By: #### C BC #### [facility] [address] [place] [address] Dr. Ekta Funk MANUAL DIFF REQ NO Normal [facility] Comment on above: Performed By: #### C BC #### [facility] [address] [place] [address] Dr. Ekta Funk MCH (RBC) [Entitic mass] 32.2 pg Normal 26.7-34.0 [facility] Comment on above: Performed By: #### C BC #### [facility] [address] [place] [address] Dr. Ekta Funk MCHC (RBC) [Mass/Vol] 32.1 g/dL Normal 29.9-35.2 [facility] Comment on above: Performed By: #### C BC #### [facility] [address] [place] [address] Dr. Ekta Funk MCV (RBC) [Entitic vol] 100.3 fL Critically high 81.0-99.0 [facility] Comment on above: Performed By: #### C BC #### [facility] [address] [place] [address] Dr. Ekta Funk MONO # 0.9 103/ul Critically high 0.3-0.8 [facility] Comment on above: Performed By: #### C BC #### [facility] [address] [place] [address] Dr. Ekta Funk Monocytes/100 WBC (Bld) 9.9 % Normal 1.7-12.0 [facility] Comment on above: Performed By: #### C BC #### [facility] [address] [place] [address] Dr. Ekta Funk NEUT # 6.4 103/ul Normal 1.4-6.5 [facility] Comment on above: Performed By: #### C BC #### [facility] [address] [place] [address] Dr. Ekta Funk Neutrophils/100 WBC (Bld) 74.4 % Normal 43.0-75.0 [facility] Comment on above: Performed By: #### C BC #### [facility] [address] [place] [address] Dr. Ekta Funk Platelet mean volume (Bld) [Entitic vol] 9.5 fL Normal 9.5-13.5 [facility] Comment on above: Performed By: #### C BC #### [facility] [address] [address] [address] Ekta Funk PLT 267 103/ul Normal 150-450 [facility] Comment on above: Performed By: #### C BC #### [facility] [address] [place] [address] Dr. Ekta Funk RBC 3.20 106/ul Critically low 4.20-5.40 [facility] Comment on above: Performed By: #### C BC #### [facility] [address] [place] [address] Dr. Ekta Funk WBC 8.6 103/ul Normal 4.0-11.0 [facility] Comment on above: Performed By: #### C BC #### [facility] [address] [place] [address] Dr. Ekta Funk BASO # 0.1 103/ul Normal 0.0-0.1 [facility] Comment on above: Performed By: #### C MP #### [facility] [address] [place] [address] Dr. Ekta Funk Basophils/100 WBC (Bld) 0.7 % Normal 0.2-2.0 [facility] Comment on above: Performed By: #### C MP #### [facility] [address] [place] [address] Dr. Ekta Funk EO # 0.3 103/ul Normal 0.0-0.7 [facility] Comment on above: Performed By: #### C MP #### [facility] [address] [place] [address] Dr. Ekta Funk Eosinophils/100 WBC (Bld) 3.9 % Normal 0.9-7.0 [facility] Comment on above: Performed By: #### C MP #### [facility] [address] [place] [address] Dr. Ekta Funk Erythrocyte distribution width (RBC) [Ratio] 13.2 % Normal 11.0-15.0 [facility] Comment on above: Performed By: #### C MP #### [facility] [address] [place], [place] [id number] Dr. Ekta Funk Hematocrit (Bld) [Volume fraction] 28.0 % Critically low 36.0-48.0 [facility] Comment on above: Performed By: #### C MP #### [facility] [address] [place] [address] Dr. Ekta Funk Hemoglobin (Bld) [Mass/Vol] 9.3 g/dL Critically low 12.0-16.0 [facility] Comment on above: Performed By: #### C MP #### [facility] [address] [place] [address] Dr. Ekta Funk IG # 0.08 10e3/ul Critically high 0.00-0.03 [facility] Comment on above: Performed By: #### C MP #### [facility] [address] [place] [address] Dr. Ekta Funk IG % 1.1 % Critically high 0.0-0.5 [facility] Comment on above: Performed By: #### C MP #### [facility] [address] [place] [address] Dr. Ekta Funk LYMPH # 0.9 103/ul Critically low 1.2-3.8 [facility] Comment on above: Performed By: #### C MP #### [facility] [address] [place] [address] Dr. Ekta Funk Lymphocytes/100 WBC (Bld) 12.1 % Critically low 20.5-60.0 [facility] Comment on above: Performed By: #### C MP #### [facility] [address] [place] [address] Dr. Ekta Funk MANUAL DIFF REQ NO Normal [facility] Comment on above: Performed By: #### C MP #### [facility] [address] [place] [address] Dr. Ekta Funk MCH (RBC) [Entitic mass] 32.0 pg Normal 26.7-34.0 [facility] Comment on above: Performed By: #### C MP #### [facility] [address] [place] [address] Dr. Ekta Funk MCHC (RBC) [Mass/Vol] 33.2 g/dL Normal 29.9-35.2 [facility] Comment on above: Performed By: #### C MP #### [facility] [address] [place] [address] Dr. Ekta Funk MCV (RBC) [Entitic vol] 96.2 fL Normal 81.0-99.0 [facility] Comment on above: Performed By: #### C MP #### [facility] [address] [place] [address] Dr. Ekta Funk MONO # 0.7 103/ul Normal 0.3-0.8 [facility] Comment on above: Performed By: #### C MP #### [facility] [address] [place] [address] Dr. Ekta Funk Monocytes/100 WBC (Bld) 9.8 % Normal 1.7-12.0 [facility] Comment on above: Performed By: #### C MP #### [facility] [address] [place] [address] Dr. Ekta Funk NEUT # 5.2 103/ul Normal 1.4-6.5 [facility] Comment on above: Performed By: #### C MP #### [facility] [address] [place] [address] Dr. Ekta Funk Neutrophils/100 WBC (Bld) 72.4 % Normal 43.0-75.0 [facility] Comment on above: Performed By: #### C MP #### [facility] [address] [place] [address] Dr. Ekta Funk Platelet mean volume (Bld) [Entitic vol] 9.4 fL Critically low 9.5-13.5 [facility] Comment on above: Performed By: #### C MP #### [facility] [address] [place] [address] Dr. Ekta Funk PLT 250 103/ul Normal 150-450 [facility] Comment on above: Performed By: #### C MP #### [facility] [address] [place] [address] Dr. Ekta Funk RBC 2.91 106/ul Critically low 4.20-5.40 [facility] Comment on above: Performed By: #### C MP #### [facility] [address] [place] [address] Dr. Ekta Funk WBC 7.2 103/ul Normal 4.0-11.0 [facility] Comment on above: Performed By: #### C MP #### [facility] [address] [place] [address] Dr. Ekta Funk PROF 14(COMP METB)on 023 Albumin [Mass/Vol] 2.1 g/dL Critically low 3.4-5.0 [facility] Comment on above: Performed By: #### C MP #### [facility] [address] [place] [address] Dr. Ekta Funk Albumin/Globulin [Mass ratio] 0.6 {ratio} Normal [facility] Comment on above: Performed By: #### C MP #### [facility] [address] [place] [address] Dr. Ekta Funk ALP [Catalytic activity/Vol] 68 U/L Normal 46-116 [facility] Comment on above: Performed By: #### C MP #### [facility] [address] [place] [address] Dr. Ekta Funk ALT [Catalytic activity/Vol] 14 U/L Normal 14-59 [facility] Comment on above: Performed By: #### C MP #### [facility] [address] [place] [address] Dr. Ekta Funk Anion gap [Moles/Vol] 12.9 mmol/L Normal [facility] Comment on above: Performed By: #### C MP #### [facility] [address] [place] [address] Dr. Ekta Funk AST [Catalytic activity/Vol] 14 U/L Critically low 15-37 [facility] Comment on above: Performed By: #### C MP #### [facility] [address] [place] [address] Dr. Ekta Funk Bilirubin [Mass/Vol] 0.3 mg/dL Normal 0.2-1.0 [facility] Comment on above: Performed By: #### C MP #### [facility] [address] [address] [address] Ekta Funk Calcium [Mass/Vol] 8.3 mg/dL Critically low 8.5-10.1 [facility] Comment on above: Performed By: #### C MP #### [facility] [address] [address] [address] Ekta Funk Chloride [Moles/Vol] 109 mmol/L Critically high 98-107 [facility] Comment on above: Performed By: #### C MP #### [facility] [address] [address] [address] Ekta Funk CO2 [Moles/Vol] 19.3 mmol/L Critically low 21.0-32.0 [facility] Comment on above: Performed By: #### C MP #### [facility] [address] [address] [address] Ekta Funk Creatinine [Mass/Vol] 1.54 mg/dL Critically high 0.55-1.02 [facility] Comment on above: Performed By: #### C MP #### [facility] [address] [place] [address] Dr. Ekta Funk EGFR-AF CUBAN 40 mL/min/1.73m2 Critically low >=60 [facility] Comment on above: Performed By: #### C MP #### [facility] [address] [address] [address] Ekta Funk EGFR-NON AF CUBAN 33 mL/min/1.73m2 Critically low >=60 [facility] Comment on above: Performed By: #### C MP #### [facility] [address] [address] [address] Ekta Funk Globulin (S) [Mass/Vol] 3.7 g/dL Normal [facility] Comment on above: Performed By: #### C MP #### [facility] [address] [address] [address] Ekta Funk Glucose [Mass/Vol] 117 mg/dL Critically high 74-106 [facility] Comment on above: Performed By: #### C MP #### [facility] [address] [address] [address] Ekta Funk Potassium [Moles/Vol] 4.2 mmol/L Normal 3.5-5.1 [facility] Comment on above: Performed By: #### C MP #### [facility] [address] [address] [address] Ekta Funk Protein [Mass/Vol] 5.8 g/dL Critically low 6.4-8.2 [facility] Comment on above: Performed By: #### C MP #### [facility] [address] [address] [address] Ekta Funk Sodium [Moles/Vol] 137 mmol/L Normal 136-145 [facility] Comment on above: Performed By: #### C MP #### [facility] [address] [address] [address] Ekta Funk Urea nitrogen [Mass/Vol] 27.0 mg/dL Critically high 7.0-18.0 [facility] Comment on above: Performed By: #### C MP #### [facility] [address] [address] [address] Ekta Funk Urea nitrogen/Creatinine [Mass ratio] 17.5 mg/mg Normal [facility] Comment on above: Performed By: #### C MP #### [facility] [address] [address] [address] Ekta Funk AMMONIAon 11-24-2022 Ammonia (P) [Moles/Vol] 13 umol/L Normal 11-32 [facility] Comment on above: Performed By: #### C VDTBH #### [facility] [address] [address] [address] Ekta Funk CBC AUTO DIFFon 11-24-2022 BASO # 0.0 103/ul Normal 0.0-0.1 [facility] Comment on above: Performed By: #### C MP #### [facility] [address] [address] [address] Etka Funk Basophils/100 WBC (Bld) 0.4 % Normal 0.2-2.0 [facility] Comment on above: Performed By: #### C MP #### [facility] [address] [place] [address] Dr. Ekta Funk EO # 0.4 103/ul Normal 0.0-0.7 [facility] Comment on above: Performed By: #### C MP #### [facility] [address] [place] [address] Dr. Ekta Funk Eosinophils/100 WBC (Bld) 3.8 % Normal 0.9-7.0 [facility] Comment on above: Performed By: #### C MP #### [facility] [address] [place] [address] Dr. Ekta Funk Erythrocyte distribution width (RBC) [Ratio] 13.2 % Normal 11.0-15.0 [facility] Comment on above: Performed By: #### C MP #### [facility] [address] [place] [address] Dr. Ekta Funk Hematocrit (Bld) [Volume fraction] 34.0 % Critically low 36.0-48.0 [facility] Comment on above: Performed By: #### C MP #### [facility] [address] [place] [address] Dr. Ekta Funk Hemoglobin (Bld) [Mass/Vol] 11.5 g/dL Critically low 12.0-16.0 [facility] Comment on above: Performed By: #### C MP #### [facility] [address] [place] [address] Dr. Ekta Funk IG # 0.11 10e3/ul Critically high 0.00-0.03 [facility] Comment on above: Performed By: #### C MP #### [facility] [address] [place] [address] Dr. Ekta Funk IG % 1.2 % Critically high 0.0-0.5 [facility] Comment on above: Performed By: #### C MP #### [facility] [address] [place] [address] Dr. Ekta Funk LYMPH # 1.4 103/ul Normal 1.2-3.8 [facility] Comment on above: Performed By: #### C MP #### [facility] [address] [place] [address] Dr. Ekta Funk Lymphocytes/100 WBC (Bld) 14.9 % Critically low 20.5-60.0 [facility] Comment on above: Performed By: #### C MP #### [facility] [address] [place] [address] Dr. Ekta Funk MANUAL DIFF REQ NO Normal [facility] Comment on above: Performed By: #### C MP #### [facility] [address] [place] [address] Dr. Ekta Funk MCH (RBC) [Entitic mass] 32.5 pg Normal 26.7-34.0 [facility] Comment on above: Performed By: #### C MP #### [facility] [address] [place] [address] Dr. Ekta Funk MCHC (RBC) [Mass/Vol] 33.8 g/dL Normal 29.9-35.2 [facility] Comment on above: Performed By: #### C MP #### [facility] [address] [place] [address] Dr. Ekta Funk MCV (RBC) [Entitic vol] 96.0 fL Normal 81.0-99.0 [facility] Comment on above: Performed By: #### C MP #### [facility] [address] [place] [address] Dr. Ekta Funk MONO # 0.9 103/ul Critically high 0.3-0.8 [facility] Comment on above: Performed By: #### C MP #### [facility] [address] [place] [address] Dr. Ekta Funk Monocytes/100 WBC (Bld) 9.7 % Normal 1.7-12.0 [facility] Comment on above: Performed By: #### C MP #### [facility] [address] [place] [address] Dr. Ekta Funk NEUT # 6.4 103/ul Normal 1.4-6.5 [facility] Comment on above: Performed By: #### C MP #### [facility] [address] [address] [address] Ekta Funk Neutrophils/100 WBC (Bld) 70.0 % Normal 43.0-75.0 [facility] Comment on above: Performed By: #### C MP #### [facility] [address] [address] [address] Ekta Funk Platelet mean volume (Bld) [Entitic vol] 9.3 fL Critically low 9.5-13.5 [facility] Comment on above: Performed By: #### C MP #### [facility] [address] [address] [address] Ekta Funk PLT 308 103/ul Normal 150-450 [facility] Comment on above: Performed By: #### C MP #### [facility] [address] [address] [address] Ekta Funk RBC 3.54 106/ul Critically low 4.20-5.40 [facility] Comment on above: Performed By: #### C MP #### [facility] [address] [address] [address] Ekta Funk WBC 9.1 103/ul Normal 4.0-11.0 [facility] Comment on above: Performed By: #### C MP #### [facility] [id number] Ekta Funk CPKon 11-24-2022 CK [Catalytic activity/Vol] 21 U/L Critically low 26-192 [facility] Comment on above: Performed By: #### B 12FOL, VITAD, IRON #### [facility] [id number] Ekta Funk CT STROKE HEAD WOon [...] by: VANESSA PARADA Date: 2022-11-24 11:09 Normal [facility] CTA HEAD WO W CONon 11-25-19 [...] VISHNU MARIE Date: 2022-11-24 12:41 Normal [facility] CULTURE URINEon 11-24-2022 CULTURE URINE Culture Observations : NO GROWTH. Normal [facility] Comment on above: Performed By: #### I NSULIN #### [facility] [address] [place] [address] Dr. Ekta Funk Covid-19 PCR ([facility])on 11-08 SARS-CoV-2 (COVID-19) RNA GANESH+probe Ql (Unsp spec) Not detected Normal NOT DETECTED [facility] Comment on above: Result Comment: When [...] for this test is supported by the [employer] and Human Service's declaration [...] used). Performed By: #### C VDTBH #### [facility] [address] [place] [address] Dr. Ekta Funk ER URINE PROFILEon 3 Bilirubin Ql (U) Negative Normal NEGATIVE [facility] Comment on above: Performed By: #### C BC #### [facility] [address] [place] [address] Dr. Ekta Funk Clarity (U) CLEAR Normal CLEAR [facility] Comment on above: Performed By: #### C BC #### [facility] [address] [place] [address] Dr. Ekta Funk Color (U) LT. YELLOW Normal YELLOW [facility] Comment on above: Performed By: #### C BC #### [facility] [address] [place] [address] Dr. Ekta COLÓN A micrscopic examination will be performed if indicated. Normal [facility] Comment on above: Performed By: #### C BC #### [facility] [address] [place] [address] Dr. Ekta Funk Glucose Ql (U) Negative Normal NEGATIVE [facility] Comment on above: Performed By: #### C BC #### [facility] [address] [place] [address] Dr. Ekta Funk Hemoglobin Ql (U) Negative Normal NEGATIVE [facility] Comment on above: Performed By: #### C BC #### [facility] [address] [place] [address] Dr. Ekta Funk Ketones Ql (U) Negative Normal NEGATIVE [facility] Comment on above: Performed By: #### C BC #### [facility] [address] [place] [address] Dr. Ekta Funk LEUKOCYTES Negative Normal NEGATIVE [facility] Comment on above: Performed By: #### C BC #### [facility] [address] [place] [address] Dr. Ekta Funk Nitrite Ql (U) Negative Normal NEGATIVE [facility] Comment on above: Performed By: #### C BC #### [facility] [address] [address] [address] Ekta Funk pH (U) 5.5 [pH] Normal 5-9 [facility] Comment on above: Performed By: #### C BC #### [facility] [address] [address] [address] Ekta Funk SPEC GRAVITY 1.020 Normal 1.005-<=1.025 [facility] Comment on above: Performed By: #### C BC #### [facility] [address] [address] [address] Ekta Funk UA PROTEIN Negative Normal NEGATIVE/ TRACE [facility] Comment on above: Performed By: #### C BC #### [facility] [address] [place] [address] Dr. Ekta Funk UR MICRO IND NOT INDICATED Normal [facility] Comment on above: Performed By: #### C BC #### [facility] [address] [place] [address] Dr. Ekta Funk Urobilinogen Qn (U) 0.2 {Ivan'U}/dL Normal 0.2 - 1. 0 [facility] Comment on above: Performed By: #### C BC #### [facility] [address] [place] [address] Dr. Ekta Funk GLYCOHEMOGLOBIN A1Con 2022 ADA RECOMMENDATION SEE BELOW Normal [facility] Comment on above: Result Comment: ADA RECOMMENDED LIMIT 4.0 - 6.0 ADA THERAPEUTIC TARGET < 7.0 ACTION SUGGESTED > 7.0 Performed By: #### B 12FOL, VITAD, IRON #### [facility] [address] [place] [address] Dr. Ekta Funk Glucose [Mass/Vol] 143 mg/dL Normal [facility] Comment on above: Performed By: #### B 12FOL, VITAD, IRON #### [facility] [address] [place] [address] Dr. Ekta Funk HbA1c (Bld) [Mass fraction] 6.6 % Critically high 4.5-6.2 [facility] Comment on above: Performed By: #### B 12FOL, VITAD, IRON #### [facility] [address] [place] [address] Dr. Ekta Funk LACTATE/LACTIC ACIDon 2022 Lactate [Moles/Vol] 1.6 mmol/L Normal 0.4-2.[address] [facility] Comment on above: Performed By: #### C MP #### [facility] [address] [place] [address] Dr. Ekta Funk Lactate [Moles/Vol] 2.1 mmol/L Critically high 0.4-2.0 [facility] Comment on above: Performed By: #### B 12FOL, VITAD, IRON #### [facility] [address] [place] [address] Dr. Ekta Funk LIPASEon 11-24-2022 Lipase [Catalytic activity/Vol] 165.0 U/L Normal 73.0-393.0 [facility] Comment on above: Performed By: #### B 12FOL, VITAD, IRON #### [facility] [address] [place] [address] Dr. Ekta Funk LIPID PROFILEon 11-24-2022 CHOL-HDL RATIO NORM SEE BELOW Normal [facility] Comment on above: Result Comment: 3.3 - 4.4 LOW RISK 4.4 - 7.1 AVERAGE RISK 7.1 - 11.0 MODERATE RISK >11.0 HIGH RISK Performed By: #### B 12FOL, VITAD, IRON #### [facility] [address] [place] [address] Dr. Ekta Funk Cholesterol [Mass/Vol] 248 mg/dL Critically high <=200 [facility] Comment on above: Performed By: #### B 12FOL, VITAD, IRON #### [facility] [address] [place] [address] Dr. Ekta Funk Cholesterol in HDL [Mass/Vol] 58 mg/dL Normal 40-60 [facility] Comment on above: Performed By: #### B 12FOL, VITAD, IRON #### [facility] [address] [address] [address] Ekta Funk Cholesterol in LDL [Mass/Vol] 165.6 mg/dL Normal [facility] Comment on above: Performed By: #### B 12FOL, VITAD, IRON #### [facility] [address] [address] [address] Ekta Funk Cholesterol.total/Ch olesterol in HDL [Mass ratio] 4.3 {ratio} Normal [facility] Comment on above: Performed By: #### B 12FOL, VITAD, IRON #### [facility] [address] [address] [address] Ekta Funk HDL NORMAL > or = 60 mg/dl - LO W CARDIOVASCULAR RISK <40 mg/dl - HIGH CARDIOVASCULAR RISK Normal [facility] Comment on above: Performed By: #### B 12FOL, VITAD, IRON #### [facility] [address] [address] [address] Ekta Funk LDL CALC NORMAL SEE BELOW Normal [facility] Comment on above: Result Comment: <100 mg/dl OPTIMAL 100 - 129 mg/dl NEAR OR ABOVE OPTIMAL 130 - 159 mg/dl BORDERLINE HIGH 160 - 189 mg/dl HIGH >190 mg/dl VERY HIGH Performed By: #### B 12FOL, VITAD, IRON #### [facility] [address] [address] [address] Ekta Funk Triglyceride [Mass/Vol] 122 mg/dL Normal <=150 [facility] Comment on above: Performed By: #### B 12FOL, VITAD, IRON #### [facility] [address] [address] [address] Ekta Funk VLDL CALC 24.4 mg/dL Normal [facility] Comment on above: Performed By: #### B 12FOL, VITAD, IRON #### [facility] [address] [place] [address] Dr. Ekta Funk MRI BRAIN WO CONon [...] by: RAVEN ELAINE Date: 2022-11-24 19:35 Normal [facility] PROF 14(COMP METB)on 11-24- 023 Albumin [Mass/Vol] 2.7 g/dL Critically low 3.4-5.0 [facility] Comment on above: Performed By: #### B 12FOL, VITAD, IRON #### [facility] [address] [address] [address] Ekta Funk Albumin/Globulin [Mass ratio] 0.6 {ratio} Normal [facility] Comment on above: Performed By: #### B 12FOL, VITAD, IRON #### [facility] [address] [address] [address] Ekta Funk ALP [Catalytic activity/Vol] 85 U/L Normal 46-116 [facility] Comment on above: Performed By: #### B 12FOL, VITAD, IRON #### [facility] [address] [address] [address] Ekta Funk ALT [Catalytic activity/Vol] 18 U/L Normal 14-59 [facility] Comment on above: Performed By: #### B 12FOL, VITAD, IRON #### [facility] [address] [place] [address] Dr. Ekta Funk Anion gap [Moles/Vol] 18.9 mmol/L Normal [facility] Comment on above: Performed By: #### B 12FOL, VITAD, IRON #### [facility] [address] [place] [address] Dr. Ekta Funk AST [Catalytic activity/Vol] 16 U/L Normal 15-37 [facility] Comment on above: Performed By: #### B 12FOL, VITAD, IRON #### [facility] [address] [place] [address] Dr. Ekta Funk Bilirubin [Mass/Vol] 0.4 mg/dL Normal 0.2-1.0 [facility] Comment on above: Performed By: #### B 12FOL, VITAD, IRON #### [facility] [address] [place] [address] Dr. Ekta Funk Calcium [Mass/Vol] 9.5 mg/dL Normal 8.5-10.1 [facility] Comment on above: Performed By: #### B 12FOL, VITAD, IRON #### [facility] [address] [place] [address] Dr. Ekta Funk Chloride [Moles/Vol] 108 mmol/L Critically high 98-107 [facility] Comment on above: Performed By: #### B 12FOL, VITAD, IRON #### [facility] [address] [place] [address] Dr. Ekta Funk CO2 [Moles/Vol] 21.1 mmol/L Normal 21.0-32.0 [facility] Comment on above: Performed By: #### B 12FOL, VITAD, IRON #### [facility] [address] [place] [address] Dr. Ekta Funk Creatinine [Mass/Vol] 2.08 mg/dL Critically high 0.55-1.02 [facility] Comment on above: Performed By: #### B 12FOL, VITAD, IRON #### [facility] [address] [address] [address] Ekta Funk EGFR-AF CUBAN 28 mL/min/1.73m2 Critically low >=60 [facility] Comment on above: Performed By: #### B 12FOL, VITAD, IRON #### [facility] [address] [place] [address] Dr. Ekta Funk EGFR-NON AF CUBAN 23 mL/min/1.73m2 Critically low >=60 [facility] Comment on above: Performed By: #### B 12FOL, VITAD, IRON #### [facility] [address] [address] [address] Ekta Funk Globulin (S) [Mass/Vol] 4.6 g/dL Normal [facility] Comment on above: Performed By: #### B 12FOL, VITAD, IRON #### [facility] [address] [place] [address] Dr. Ekta Funk Glucose [Mass/Vol] 119 mg/dL Critically high 74-106 [facility] Comment on above: Performed By: #### B 12FOL, VITAD, IRON #### [facility] [address] [place] [address] Dr. Ekta Funk Potassium [Moles/Vol] 5.0 mmol/L Normal 3.5-5.1 [facility] Comment on above: Performed By: #### B 12FOL, VITAD, IRON #### [facility] [address] [place] [address] Dr. Ekta Funk Protein [Mass/Vol] 7.3 g/dL Normal 6.4-8.2 [facility] Comment on above: Performed By: #### B 12FOL, VITAD, IRON #### [facility] [address] [place] [address] Dr. Ekta Funk Sodium [Moles/Vol] 143 mmol/L Normal 136-145 [facility] Comment on above: Performed By: #### B 12FOL, VITAD, IRON #### [facility] [address] [place] [address] Dr. Ekta Funk Urea nitrogen [Mass/Vol] 37.0 mg/dL Critically high 7.0-18.0 [facility] Comment on above: Performed By: #### B CAROLYN LAUGHLIN, IRON #### [facility] [address] [address] [address] Ekta Funk Urea nitrogen/Creatinine [Mass ratio] 17.8 mg/mg Normal [facility] Comment on above: Performed By: #### B CAROLYN LAUGHLIN, IRON #### [facility] [address] [address] [address] Ekta Funk TROPONIN, HIGH SENSITIVITYon 11-24-2022 HSTROP 14.1 pg/mL Normal 4.0-51.3 [facility] Comment on above: Result Comment: CUT- OFF POINTS HAVE BEEN ESTABLISHED BASED ON THE FOURTH UNIVERSAL DEFINITIONS OF MYOCARDIAL INFARCTION. THE UPPER REFERENCE LIMIT (URL) OF TROPONIN, DEFINED THE 99TH PERCENTILE OF cTnI DISTRIBUTION IN A REFERENCE POPULATION, HAS BEEN CONFIRMED THE DECISION THRESHOLD FOR CT DIAGNOSIS. Performed By: #### B CAROLYN LAUGHLIN, IRON #### [facility] [address] [address] [address] Ekta Funk TSHon 11-24-2022 TSH 1.184 uIU/mL Normal 0.358-3.740 [facility] Comment on above: Performed By: #### B CAROLYN LAUGHLIN, IRON #### [facility] [address] [place] [address] Dr. Ekta Funk XR CHEST 1 Von [...] NATALIIA TATE Date: 2022-11-24 11:00 Normal [facility] BNPon 11-13-2022 Natriuretic peptide B (Bld) [Mass/Vol] 565.0 pg/mL Normal <=900.0 [facility] Comment on above: Performed By: #### I NSULIN #### [facility] [address] [place] [address] Dr. Ekta Funk CBC AUTO DIFFon 11-13-2022 BASO # 0.1 103/ul Normal 0.0-0.1 [facility] Comment on above: Performed By: #### C BC #### [facility] [address] [place] [address] Dr. Ekta Funk Basophils/100 WBC (Bld) 0.6 % Normal 0.2-2.0 [facility] Comment on above: Performed By: #### C BC #### [facility] [address] [place] [address] Dr. Ekta Funk EO # 0.4 103/ul Normal 0.0-0.7 [facility] Comment on above: Performed By: #### C BC #### [facility] [address] [place] [address] Dr. Ekta Funk Eosinophils/100 WBC (Bld) 3.7 % Normal 0.9-7.0 [facility] Comment on above: Performed By: #### C BC #### [facility] [address] [place] [address] Dr. Ekta Funk Erythrocyte distribution width (RBC) [Ratio] 13.2 % Normal 11.0-15.0 [facility] Comment on above: Performed By: #### C BC #### [facility] [address] [place] [address] Dr. Ekta Funk Hematocrit (Bld) [Volume fraction] 36.7 % Normal 36.0-48.0 [facility] Comment on above: Performed By: #### C BC #### [facility] [address] [place] [address] Dr. Ekta Funk Hemoglobin (Bld) [Mass/Vol] 12.4 g/dL Normal 12.0-16.0 [facility] Comment on above: Performed By: #### C BC #### [facility] [address] [address] [address] Ekta Funk IG # 0.10 10e3/ul Critically high 0.00-0.03 [facility] Comment on above: Performed By: #### C BC #### [facility] [address] [address] [address] Ekta Funk IG % 1.0 % Critically high 0.0-0.5 [facility] Comment on above: Performed By: #### C BC #### [facility] [address] [place] [address] Dr. Ekta Funk LYMPH # 1.5 103/ul Normal 1.2-3.8 [facility] Comment on above: Performed By: #### C BC #### [facility] [address] [place] [address] Dr. Ekta Funk Lymphocytes/100 WBC (Bld) 14.9 % Critically low 20.5-60.0 [facility] Comment on above: Performed By: #### C BC #### [facility] [address] [place] [address] Dr. Ekta Funk MANUAL DIFF REQ NO Normal [facility] Comment on above: Performed By: #### C BC #### [facility] [address] [place] [address] Dr. Ekta Funk MCH (RBC) [Entitic mass] 32.8 pg Normal 26.7-34.0 [facility] Comment on above: Performed By: #### C BC #### [facility] [address] [place] [address] Dr. Ekta Funk MCHC (RBC) [Mass/Vol] 33.8 g/dL Normal 29.9-35.2 [facility] Comment on above: Performed By: #### C BC #### [facility] [address] [place] [address] Dr. Ekta Funk MCV (RBC) [Entitic vol] 97.1 fL Normal 81.0-99.0 [facility] Comment on above: Performed By: #### C BC #### [facility] [address] [place] [address] Dr. Ekta Funk MONO # 0.8 103/ul Normal 0.3-0.8 [facility] Comment on above: Performed By: #### C BC #### [facility] [address] [place] [address] Dr. Ekta Funk Monocytes/100 WBC (Bld) 7.7 % Normal 1.7-12.0 [facility] Comment on above: Performed By: #### C BC #### [facility] [address] [place] [address] Dr. Ekta Funk NEUT # 7.3 103/ul Critically high 1.4-6.5 [facility] Comment on above: Performed By: #### C BC #### [facility] [address] [place] [address] Dr. Ekta Funk Neutrophils/100 WBC (Bld) 72.1 % Normal 43.0-75.0 [facility] Comment on above: Performed By: #### C BC #### [facility] [address] [place] [address] Dr. Ekta Funk Platelet mean volume (Bld) [Entitic vol] 9.4 fL Critically low 9.5-13.5 [facility] Comment on above: Performed By: #### C BC #### [facility] [address] [place] [address] Dr. Ekta Funk PLT 251 103/ul Normal 150-450 [facility] Comment on above: Performed By: #### C BC #### [facility] [address] [place] [address] Dr. Ekta Funk RBC 3.78 106/ul Critically low 4.20-5.40 [facility] Comment on above: Performed By: #### C BC #### [facility] [address] [place] [address] Dr. Ekta Funk WBC 10.1 103/ul Normal 4.0-11.0 [facility] Comment on above: Performed By: #### C BC #### [facility] [address] [place] [address] Dr. Ekta Funk FREE THYROXINE INDEX T7on FTI 2.73 Normal 1.30-4.50 [facility] Comment on above: Performed By: #### I NSULIN #### [facility] [address] [address] [address] Ekta Funk T3U 35.0 % Normal 30.0-39.0 [facility] Comment on above: Performed By: #### I NSULIN #### [facility] [address] [address] [address] Ekta Funk T4 [Mass/Vol] 7.80 ug/dL Normal 4.80-13.90 [facility] Comment on above: Performed By: #### I NSULIN #### [facility] [address] [address] [address] Ekta Funk GLYCOHEMOGLOBIN A1Con 2022 ADA RECOMMENDATION SEE BELOW Normal [facility] Comment on above: Result Comment: ADA RECOMMENDED LIMIT 4.0 - 6.0 ADA THERAPEUTIC TARGET < 7.0 ACTION SUGGESTED > 7.0 Performed By: #### B 12FOL, VITAD, IRON #### [facility] [address] [address] [address] Ekta Funk Glucose [Mass/Vol] 134 mg/dL Normal [facility] Comment on above: Performed By: #### B 12FOL, VITAD, IRON #### [facility] [address] [address] [address] Ekta Funk HbA1c (Bld) [Mass fraction] 6.3 % Critically high 4.5-6.2 [facility] Comment on above: Performed By: #### B 12FOL, VITAD, IRON #### [facility] [address] [address] [address] Ekta Funk IRONon 11-13-2022 Iron [Mass/Vol] 55.0 ug/dL Normal 50.0-170.0 [facility] Comment on above: Performed By: #### B 12FOL, VITAD, IRON #### [facility] [address] [place] [address] Dr. Ekta Funk LIPID PROFILEon 11-13-2022 CHOL-HDL RATIO NORM SEE BELOW Normal [facility] Comment on above: Result Comment: 3.3 - 4.4 LOW RISK 4.4 - 7.1 AVERAGE RISK 7.1 - 11.0 MODERATE RISK >11.0 HIGH RISK Performed By: #### I NSULIN #### [facility] [address] [address] [address] Ekta Funk Cholesterol [Mass/Vol] 294 mg/dL Critically high <=200 [facility] Comment on above: Performed By: #### I NSULIN #### [facility] [address] [address] [address] Ekta Funk Cholesterol in HDL [Mass/Vol] 64 mg/dL Critically high 40-60 [facility] Comment on above: Performed By: #### I NSULIN #### [facility] [address] [address] [address] Ekta Funk Cholesterol in LDL [Mass/Vol] 197.2 mg/dL Normal [facility] Comment on above: Performed By: #### I NSULIN #### [facility] [address] [address] [address] Ekta Funk Cholesterol.total/Ch olesterol in HDL [Mass ratio] 4.6 {ratio} Normal [facility] Comment on above: Performed By: #### I NSULIN #### [facility] [address] [address] [address] Ekta Funk HDL NORMAL > or = 60 mg/dl - LO W CARDIOVASCULAR RISK <40 mg/dl - HIGH CARDIOVASCULAR RISK Normal [facility] Comment on above: Performed By: #### I NSULIN #### [facility] [address] [address] [address] Ekta Funk LDL CALC NORMAL SEE BELOW Normal [facility] Comment on above: Result Comment: <100 mg/dl OPTIMAL 100 - 129 mg/dl NEAR OR ABOVE OPTIMAL 130 - 159 mg/dl BORDERLINE HIGH 160 - 189 mg/dl HIGH >190 mg/dl VERY HIGH Performed By: #### I NSULIN #### [facility] [address] [address] [address] Ekta Funk Triglyceride [Mass/Vol] 164 mg/dL Critically high <=150 [facility] Comment on above: Performed By: #### I NSULIN #### [facility] [address] [place] [address] Dr. Ekta Funk VLDL CALC 32.8 mg/dL Normal [facility] Comment on above: Performed By: #### I NSULIN #### [facility] [address] [place] [address] Dr. Ekta Funk PROF 14(COMP METB)on 023 Albumin [Mass/Vol] 3.0 g/dL Critically low 3.4-5.0 [facility] Comment on above: Performed By: #### I NSULIN #### [facility] [address] [place] [address] Dr. Ekta Funk Albumin/Globulin [Mass ratio] 0.6 {ratio} Normal [facility] Comment on above: Performed By: #### I NSULIN #### [facility] [address] [place] [address] Dr. Ekta Funk ALP [Catalytic activity/Vol] 92 U/L Normal 46-116 [facility] Comment on above: Performed By: #### I NSULIN #### [facility] [address] [place] [address] Dr. Ekta Funk ALT [Catalytic activity/Vol] 26 U/L Normal 14-59 [facility] Comment on above: Performed By: #### I NSULIN #### [facility] [address] [place] [address] Dr. Ekta Funk Anion gap [Moles/Vol] 16.2 mmol/L Normal [facility] Comment on above: Performed By: #### I NSULIN #### [facility] [address] [place] [address] Dr. Ekta Funk AST [Catalytic activity/Vol] 16 U/L Normal 15-37 [facility] Comment on above: Performed By: #### I NSULIN #### [facility] [address] [place] [address] Dr. Ekta Funk Bilirubin [Mass/Vol] 0.5 mg/dL Normal 0.2-1.0 [facility] Comment on above: Performed By: #### I NSULIN #### [facility] [address] [place] [address] Dr. Ekta Funk Calcium [Mass/Vol] 9.7 mg/dL Normal 8.5-10.1 [facility] Comment on above: Performed By: #### I NSULIN #### [facility] [address] [place] [address] Dr. Ekta Funk Chloride [Moles/Vol] 105 mmol/L Normal 98-107 [facility] Comment on above: Performed By: #### I NSULIN #### [facility] [address] [place] [address] Dr. Ekta Funk CO2 [Moles/Vol] 24.9 mmol/L Normal 21.0-32.0 [facility] Comment on above: Performed By: #### I NSULIN #### [facility] [address] [place] [address] Dr. Ekta Funk Creatinine [Mass/Vol] 2.18 mg/dL Critically high 0.55-1.02 [facility] Comment on above: Performed By: #### I NSULIN #### [facility] [address] [place] [address] Dr. Ekta Funk EGFR-AF CUBAN 27 mL/min/1.73m2 Critically low >=60 [facility] Comment on above: Performed By: #### I NSULIN #### [facility] [address] [place] [address] Dr. Ekta Funk EGFR-NON AF CUBAN 22 mL/min/1.73m2 Critically low >=60 [facility] Comment on above: Performed By: #### I NSULIN #### [facility] [address] [place] [address] Dr. Ekta Funk Globulin (S) [Mass/Vol] 4.7 g/dL Normal [facility] Comment on above: Performed By: #### I NSULIN #### [facility] [address] [place] [address] Dr. Ekta Funk Glucose [Mass/Vol] 114 mg/dL Critically high 74-106 [facility] Comment on above: Performed By: #### I NSULIN #### [facility] [address] [address] [address] Ekta Funk Potassium [Moles/Vol] 5.1 mmol/L Normal 3.5-5.1 [facility] Comment on above: Performed By: #### I NSULIN #### [facility] [address] [place] [address] Dr. Ekta Funk Protein [Mass/Vol] 7.7 g/dL Normal 6.4-8.2 [facility] Comment on above: Performed By: #### I NSULIN #### [facility] [address] [place] [address] Dr. Ekta Funk Sodium [Moles/Vol] 141 mmol/L Normal 136-145 [facility] Comment on above: Performed By: #### I NSULIN #### [facility] [address] [place] [address] Dr. Ekta Funk Urea nitrogen [Mass/Vol] 51.0 mg/dL Critically high 7.0-18.0 [facility] Comment on above: Performed By: #### I NSULIN #### [facility] [address] [place] [address] Dr. Ekta Funk Urea nitrogen/Creatinine [Mass ratio] 23.4 mg/mg Normal [facility] Comment on above: Performed By: #### I NSULIN #### [facility] [address] [place] [address] Dr. Ekta Funk TSHon 11-13-2022 TSH 0.935 uIU/mL Normal 0.358-3.740 [facility] Comment on above: Performed By: #### I NSULIN #### [facility] [address] [place] [address] Dr. Ekta Funk XR CHEST 2 Von [...] GODWIN BECK Date: 2022-11-13 15:40 Normal [facility] PROF 14(COMP METB)on 023 Albumin [Mass/Vol] 3.0 g/dL Critically low 3.4-5.0 [facility] Comment on above: Performed By: #### B 12FOL, VITAD, IRON #### [facility] [address] [place] [address] Dr. Ekta Funk Albumin/Globulin [Mass ratio] 0.7 {ratio} Normal [facility] Comment on above: Performed By: #### B 12FOL, VITAD, IRON #### [facility] [address] [place] [address] Dr. Ekta Funk ALP [Catalytic activity/Vol] 89 U/L Normal 46-116 [facility] Comment on above: Performed By: #### B 12FOL, VITAD, IRON #### [facility] [address] [place] [address] Dr. Ekta Funk ALT [Catalytic activity/Vol] 29 U/L Normal 14-59 [facility] Comment on above: Performed By: #### B 12FOL, VITAD, IRON #### [facility] [address] [place] [address] Dr. Ekta Funk Anion gap [Moles/Vol] 15.2 mmol/L Normal [facility] Comment on above: Performed By: #### B 12FOL, VITAD, IRON #### [facility] [address] [place] [address] Dr. Ekta Funk AST [Catalytic activity/Vol] 14 U/L Critically low 15-37 [facility] Comment on above: Performed By: #### B 12FOL, VITAD, IRON #### [facility] [address] [place] [address] Dr. Ekta Funk Bilirubin [Mass/Vol] 0.4 mg/dL Normal 0.2-1.0 [facility] Comment on above: Performed By: #### B 12FOL, VITAD, IRON #### [facility] [address] [address] [address] Ekta Funk Calcium [Mass/Vol] 9.1 mg/dL Normal 8.5-10.1 [facility] Comment on above: Performed By: #### B 12FOL, VITAD, IRON #### [facility] [address] [address] [address] Ekta Funk Chloride [Moles/Vol] 106 mmol/L Normal 98-107 [facility] Comment on above: Performed By: #### B 12FOL, VITAD, IRON #### [facility] [address] [place] [address] Dr. Ekta Funk CO2 [Moles/Vol] 24.2 mmol/L Normal 21.0-32.0 [facility] Comment on above: Performed By: #### B 12FOL, VITAD, IRON #### [facility] [address] [address] [address] Ekta Funk Creatinine [Mass/Vol] 1.89 mg/dL Critically high 0.55-1.02 [facility] Comment on above: Performed By: #### B 12FOL, VITAD, IRON #### [facility] [address] [place] [address] Dr. Ekta Funk EGFR-AF CUBAN 32 mL/min/1.73m2 Critically low >=60 [facility] Comment on above: Performed By: #### B 12FOL, VITAD, IRON #### [facility] [address] [address] [address] Ekta Funk EGFR-NON AF CUBAN 26 mL/min/1.73m2 Critically low >=60 [facility] Comment on above: Performed By: #### B 12FOL, VITAD, IRON #### [facility] [address] [address] [address] Ekta Funk Globulin (S) [Mass/Vol] 4.1 g/dL Normal [facility] Comment on above: Performed By: #### B 12FOL, VITAD, IRON #### [facility] [address] [address] [address] Ekta Funk Glucose [Mass/Vol] 108 mg/dL Critically high 74-106 [facility] Comment on above: Performed By: #### B 12FOL, VITAD, IRON #### [facility] [address] [place] [address] Dr. Ekta Funk Potassium [Moles/Vol] 4.4 mmol/L Normal 3.5-5.1 [facility] Comment on above: Performed By: #### B 12FOL, VITAD, IRON #### [facility] [address] [place] [address] Dr. Ekta Funk Protein [Mass/Vol] 7.1 g/dL Normal 6.4-8.2 [facility] Comment on above: Performed By: #### B 12FOL, VITAD, IRON #### [facility] [address] [place] [address] Dr. Ekta Funk Sodium [Moles/Vol] 141 mmol/L Normal 136-145 [facility] Comment on above: Performed By: #### B 12FOL, VITAD, IRON #### [facility] [address] [place] [address] Dr. Ekta Funk Urea nitrogen [Mass/Vol] 40.0 mg/dL Critically high 7.0-18.0 [facility] Comment on above: Performed By: #### B 12FOL, VITAD, IRON #### [facility] [address] [place] [address] Dr. Ekta Funk Urea nitrogen/Creatinine [Mass ratio] 21.2 mg/mg Normal [facility] Comment on above: Performed By: #### B 12FOL, VITAD, IRON #### [facility] [address] [place] [address] Dr. Ekta Funk BNPon 10-23-2022 Natriuretic peptide B (Bld) [Mass/Vol] 507.0 pg/mL Normal <=900.0 [facility] Comment on above: Performed By: #### B 12FOL, VITAD, IRON #### [facility] [address] [place] [address] Dr. Ekta Funk CBC AUTO DIFFon 10-23-2022 BASO # 0.0 103/ul Normal 0.0-0.1 [facility] Comment on above: Performed By: #### C BC #### [facility] [address] [place] [address] Dr. Ekta Funk Basophils/100 WBC (Bld) 0.2 % Normal 0.2-2.0 [facility] Comment on above: Performed By: #### C BC #### [facility] [address] [place] [address] Dr. Ekta Funk EO # 0.1 103/ul Normal 0.0-0.7 [facility] Comment on above: Performed By: #### C BC #### [facility] [address] [place] [address] Dr. Ekta Funk Eosinophils/100 WBC (Bld) 1.1 % Normal 0.9-7.0 [facility] Comment on above: Performed By: #### C BC #### [facility] [address] [place] [address] Dr. Ekta Funk Erythrocyte distribution width (RBC) [Ratio] 12.8 % Normal 11.0-15.0 [facility] Comment on above: Performed By: #### C BC #### [facility] [address] [place] [address] Dr. Ekta Funk Hematocrit (Bld) [Volume fraction] 37.1 % Normal 36.0-48.0 [facility] Comment on above: Performed By: #### C BC #### [facility] [address] [place] [address] Dr. Ekta Funk Hemoglobin (Bld) [Mass/Vol] 13.0 g/dL Normal 12.0-16.0 [facility] Comment on above: Performed By: #### C BC #### [facility] [address] [place] [address] Dr. Ekta Funk IG # 0.11 10e3/ul Critically high 0.00-0.03 [facility] Comment on above: Performed By: #### C BC #### [facility] [address] [place] [address] Dr. Ekta Funk IG % 1.1 % Critically high 0.0-0.5 [facility] Comment on above: Performed By: #### C BC #### [facility] [address] [place] [address] Dr. Ekta Funk LYMPH # 1.6 103/ul Normal 1.2-3.8 [facility] Comment on above: Performed By: #### C BC #### [facility] [address] [place] [address] Dr. Ekta Funk Lymphocytes/100 WBC (Bld) 15.6 % Critically low 20.5-60.0 [facility] Comment on above: Performed By: #### C BC #### [facility] [address] [place] [address] Dr. Ekta Funk MANUAL DIFF REQ NO Normal [facility] Comment on above: Performed By: #### C BC #### [facility] [address] [place] [address] Dr. Ekta Funk MCH (RBC) [Entitic mass] 32.8 pg Normal 26.7-34.0 [facility] Comment on above: Performed By: #### C BC #### [facility] [address] [place] [address] Dr. Ekta Funk MCHC (RBC) [Mass/Vol] 35.0 g/dL Normal 29.9-35.2 [facility] Comment on above: Performed By: #### C BC #### [facility] [address] [place] [address] Dr. Ekta Funk MCV (RBC) [Entitic vol] 93.7 fL Normal 81.0-99.0 [facility] Comment on above: Performed By: #### C BC #### [facility] [address] [place] [address] Dr. Ekta Funk MONO # 0.9 103/ul Critically high 0.3-0.8 [facility] Comment on above: Performed By: #### C BC #### [facility] [address] [address] [address] Ekta Funk Monocytes/100 WBC (Bld) 8.3 % Normal 1.7-12.0 [facility] Comment on above: Performed By: #### C BC #### [facility] [address] [address] [address] Ekta Funk NEUT # 7.5 103/ul Critically high 1.4-6.5 [facility] Comment on above: Performed By: #### C BC #### [facility] [address] [address] [address] Ekta Funk Neutrophils/100 WBC (Bld) 73.7 % Normal 43.0-75.0 [facility] Comment on above: Performed By: #### C BC #### [facility] [address] [address] [address] Ekta Funk Platelet mean volume (Bld) [Entitic vol] 10.3 fL Normal 9.5-13.5 [facility] Comment on above: Performed By: #### C BC #### [facility] [address] [address] [address] Ekta Fnuk PLT 135 103/ul Critically low 150-450 [facility] Comment on above: Performed By: #### C BC #### [facility] [address] [address] [address] Ekta uFnk RBC 3.96 106/ul Critically low 4.20-5.40 [facility] Comment on above: Performed By: #### C BC #### [facility] [address] [address] [address] Ekta Funk WBC 10.2 103/ul Normal 4.0-11.0 [facility] Comment on above: Performed By: #### C BC #### [facility] [address] [address] [address] Ekta Funk PROF 14(COMP METB)on 023 Albumin [Mass/Vol] 2.7 g/dL Critically low 3.4-5.0 [facility] Comment on above: Performed By: #### B 12FOL, VITAD, IRON #### [facility] [address] [place] [address] Dr. Ekta Funk Albumin/Globulin [Mass ratio] 0.8 {ratio} Normal [facility] Comment on above: Performed By: #### B 12FOL, VITAD, IRON #### [facility] [address] [place] [address] Dr. Ekta Funk ALP [Catalytic activity/Vol] 74 U/L Normal 46-116 [facility] Comment on above: Performed By: #### B 12FOL, VITAD, IRON #### [facility] [address] [place] [address] Dr. Ekta Funk ALT [Catalytic activity/Vol] 26 U/L Normal 14-59 [facility] Comment on above: Performed By: #### B 12FOL, VITAD, IRON #### [facility] [address] [place] [address] Dr. Ekta Funk Anion gap [Moles/Vol] 16.5 mmol/L Normal [facility] Comment on above: Performed By: #### B 12FOL, VITAD, IRON #### [facility] [address] [place] [address] Dr. Ekta Funk AST [Catalytic activity/Vol] 15 U/L Normal 15-37 [facility] Comment on above: Performed By: #### B 12FOL, VITAD, IRON #### [facility] [address] [place] [address] Dr. Ekta Funk Bilirubin [Mass/Vol] 0.4 mg/dL Normal 0.2-1.0 [facility] Comment on above: Performed By: #### B 12FOL, VITAD, IRON #### [facility] [address] [place] [address] Dr. Ekta Funk Calcium [Mass/Vol] 8.1 mg/dL Critically low 8.5-10.1 [facility] Comment on above: Performed By: #### B 12FOL, VITAD, IRON #### [facility] [address] [place] [address] Dr. Ekta Funk Chloride [Moles/Vol] 96 mmol/L Critically low 98-107 [facility] Comment on above: Performed By: #### B 12FOL, VITAD, IRON #### [facility] [address] [place] [address] Dr. Ekta Funk CO2 [Moles/Vol] 26.1 mmol/L Normal 21.0-32.0 [facility] Comment on above: Performed By: #### B 12FOL, VITAD, IRON #### [facility] [address] [place] [address] Dr. Ekta Funk Creatinine [Mass/Vol] 3.28 mg/dL Critically high 0.55-1.02 [facility] Comment on above: Performed By: #### B 12FOL, VITAD, IRON #### [facility] [address] [place] [address] Dr. Ekta Funk EGFR-AF CUBAN 17 mL/min/1.73m2 Critically low >=60 [facility] Comment on above: Performed By: #### B 12FOL, VITAD, IRON #### [facility] [address] [place] [address] Dr. Ekta Funk EGFR-NON AF CUBAN 14 mL/min/1.73m2 Critically low >=60 [facility] Comment on above: Performed By: #### B 12FOL, VITAD, IRON #### [facility] [address] [place] [address] Dr. Ekta Funk Globulin (S) [Mass/Vol] 3.6 g/dL Normal [facility] Comment on above: Performed By: #### B 12FOL, VITAD, IRON #### [facility] [address] [place] [address] Dr. Ekta Funk Glucose [Mass/Vol] 132 mg/dL Critically high 74-106 T [facility] Comment on above: Performed By: #### B 12FOL, VITAD, IRON #### [facility] [address] [place] [address] Dr. Ekta Funk Potassium [Moles/Vol] 4.6 mmol/L Normal 3.5-5.1 [facility] Comment on above: Performed By: #### B 12FOL, VITAD, IRON #### [facility] [address] [place] [address] Dr. Ekta Funk Protein [Mass/Vol] 6.3 g/dL Critically low 6.4-8.2 [facility] Comment on above: Performed By: #### B 12FOL, VITAD, IRON #### [facility] [address] [place] [address] Dr. Ekta Funk Sodium [Moles/Vol] 134 mmol/L Critically low 136-145 [facility] Comment on above: Performed By: #### B 12FOL, VITAD, IRON #### [facility] [address] [place] [address] Dr. Ekta Funk Urea nitrogen [Mass/Vol] 74.0 mg/dL Critically high 7.0-18.0 [facility] Comment on above: Performed By: #### B 12FOL, VITAD, IRON #### [facility] [address] [place] [address] Dr. Ekta Funk Urea nitrogen/Creatinine [Mass ratio] 22.6 mg/mg Normal [facility] Comment on above: Performed By: #### B 12FOL, VITAD, IRON #### [facility] [address] [place] [address] Dr. Ekta Funk BNPon 10-22-2022 Natriuretic peptide B (Bld) [Mass/Vol] 1411.0 pg/mL Critically high <=900.0 [facility] Comment on above: Performed By: #### B 12FOL, VITAD, IRON #### [facility] [address] [place] [address] Dr. Ekta Funk CBC AUTO DIFFon 10-22-2022 BASO # 0.0 103/ul Normal 0.0-0.1 [facility] Comment on above: Performed By: #### B 12FOL, VITAD, IRON #### [facility] [address] [place] [address] Dr. Ekta Funk Basophils/100 WBC (Bld) 0.3 % Normal 0.2-2.0 [facility] Comment on above: Performed By: #### B 12FOL, VITAD, IRON #### [facility] [address] [place] [address] Dr. Ekta Funk EO # 0.1 103/ul Normal 0.0-0.7 [facility] Comment on above: Performed By: #### B 12FOL, VITAD, IRON #### [facility] [address] [place] [address] Dr. Ekta Funk Eosinophils/100 WBC (Bld) 0.6 % Critically low 0.9-7.0 [facility] Comment on above: Performed By: #### B 12FOL, VITAD, IRON #### [facility] [address] [place] [address] Dr. Ekta Funk Erythrocyte distribution width (RBC) [Ratio] 12.9 % Normal 11.0-15.0 [facility] Comment on above: Performed By: #### B 12FOL, VITAD, IRON #### [facility] [address] [place] [address] Dr. Ekta Funk Hematocrit (Bld) [Volume fraction] 40.8 % Normal 36.0-48.0 [facility] Comment on above: Performed By: #### B 12FOL, VITAD, IRON #### [facility] [address] [place] [address] Dr. Ekta Funk Hemoglobin (Bld) [Mass/Vol] 14.0 g/dL Normal 12.0-16.0 [facility] Comment on above: Performed By: #### B 12FOL, VITAD, IRON #### [facility] [address] [place] [address] Dr. Ekta Funk IG # 0.09 10e3/ul Critically high 0.00-0.03 [facility] Comment on above: Performed By: #### B 12FOL, VITAD, IRON #### [facility] [address] [place] [address] Dr. Ekta Funk IG % 0.8 % Critically high 0.0-0.5 [facility] Comment on above: Performed By: #### B 12FOL, VITAD, IRON #### [facility] [address] [place] [address] Dr. Ekta Funk LYMPH # 1.8 103/ul Normal 1.2-3.8 [facility] Comment on above: Performed By: #### B 12FOL, VITAD, IRON #### [facility] [address] [place] [address] Dr. Ekta Funk Lymphocytes/100 WBC (Bld) 16.2 % Critically low 20.5-60.0 [facility] Comment on above: Performed By: #### B 12FOL, VITAD, IRON #### [facility] [address] [place] [address] Dr. Ekta Funk MANUAL DIFF REQ NO Normal [facility] Comment on above: Performed By: #### B 12FOL, VITAD, IRON #### [facility] [address] [place] [address] Dr. Ekta Funk MCH (RBC) [Entitic mass] 32.3 pg Normal 26.7-34.0 [facility] Comment on above: Performed By: #### B 12FOL, VITAD, IRON #### [facility] [address] [place] [address] Dr. Ekta Funk MCHC (RBC) [Mass/Vol] 34.3 g/dL Normal 29.9-35.2 [facility] Comment on above: Performed By: #### B 12FOL, VITAD, IRON #### [facility] [address] [place] [address] Dr. Ekta Funk MCV (RBC) [Entitic vol] 94.2 fL Normal 81.0-99.0 [facility] Comment on above: Performed By: #### B 12FOL, VITAD, IRON #### [facility] [address] [place] [address] Dr. Ekta Funk MONO # 0.8 103/ul Normal 0.3-0.8 [facility] Comment on above: Performed By: #### B 12FOL, VITAD, IRON #### [facility] [address] [place] [address] Dr. Ekta Funk Monocytes/100 WBC (Bld) 7.3 % Normal 1.7-12.0 [facility] Comment on above: Performed By: #### B 12FOL, VITAD, IRON #### [facility] [address] [place] [address] Dr. Ekta Funk NEUT # 8.1 103/ul Critically high 1.4-6.5 [facility] Comment on above: Performed By: #### B 12FOL, VITAD, IRON #### [facility] [address] [place] [address] Dr. Ekta Funk Neutrophils/100 WBC (Bld) 74.8 % Normal 43.0-75.0 [facility] Comment on above: Performed By: #### B 12FOL, VITAD, IRON #### [facility] [address] [place] [address] Dr. Ekta Funk Platelet mean volume (Bld) [Entitic vol] 9.8 fL Normal 9.5-13.5 [facility] Comment on above: Performed By: #### B 12FOL, VITAD, IRON #### [facility] [address] [place] [address] Dr. Ekta Funk PLT 226 103/ul Normal 150-450 [facility] Comment on above: Performed By: #### B 12FOL, VITAD, IRON #### [facility] [address] [place] [address] Dr. Ekta Funk RBC 4.33 106/ul Normal 4.20-5.40 [facility] Comment on above: Performed By: #### B 12FOL, VITAD, IRON #### [facility] [address] [place] [address] Dr. Ekta Funk WBC 10.9 103/ul Normal 4.0-11.0 [facility] Comment on above: Performed By: #### B 12FOL, VITAD, IRON #### [facility] [address] [place], [place] [id number] Dr. Ekta Funk PROF 14(COMP METB)on 023 Albumin [Mass/Vol] 3.1 g/dL Critically low 3.4-5.0 [facility] Comment on above: Performed By: #### B 12FOL, VITAD, IRON #### [facility] [address] [place] [address] Dr. Ekta Funk Albumin/Globulin [Mass ratio] 0.7 {ratio} Normal [facility] Comment on above: Performed By: #### B 12FOL, VITAD, IRON #### [facility] [address] [place] [address] Dr. Ekta Funk ALP [Catalytic activity/Vol] 81 U/L Normal 46-116 [facility] Comment on above: Performed By: #### B 12FOL, VITAD, IRON #### [facility] [address] [place] [address] Dr. Ekta Funk ALT [Catalytic activity/Vol] 30 U/L Normal 14-59 [facility] Comment on above: Performed By: #### B 12FOL, VITAD, IRON #### [facility] [address] [place] [address] Dr. Ekta Funk Anion gap [Moles/Vol] 17.3 mmol/L Normal [facility] Comment on above: Performed By: #### B 12FOL, VITAD, IRON #### [facility] [address] [place] [address] Dr. Ekta Funk AST [Catalytic activity/Vol] 11 U/L Critically low 15-37 [facility] Comment on above: Performed By: #### B 12FOL, VITAD, IRON #### [facility] [address] [place] [address] Dr. Ekta Funk Bilirubin [Mass/Vol] 0.5 mg/dL Normal 0.2-1.0 [facility] Comment on above: Performed By: #### B 12FOL, VITAD, IRON #### [facility] [address] [place] [address] Dr. Ekta Funk Calcium [Mass/Vol] 8.6 mg/dL Normal 8.5-10.1 [facility] Comment on above: Performed By: #### B 12FOL, VITAD, IRON #### [facility] [address] [place] [address] Dr. Ekta Funk Chloride [Moles/Vol] 95 mmol/L Critically low 98-107 [facility] Comment on above: Performed By: #### B 12FOL, VITAD, IRON #### [facility] [address] [place] [address] Dr. Ekta Funk CO2 [Moles/Vol] 27.3 mmol/L Normal 21.0-32.0 [facility] Comment on above: Performed By: #### B 12FOL, VITAD, IRON #### [facility] [address] [place] [address] Dr. Ekta Funk Creatinine [Mass/Vol] 3.17 mg/dL Critically high 0.55-1.02 [facility] Comment on above: Performed By: #### B 12FOL, VITAD, IRON #### [facility] [address] [place] [address] Dr. Ekta Funk EGFR-AF CUBAN 17 mL/min/1.73m2 Critically low >=60 [facility] Comment on above: Performed By: #### B 12FOL, VITAD, IRON #### [facility] [address] [place] [address] Dr. Ekta Funk EGFR-NON AF CUBAN 14 mL/min/1.73m2 Critically low >=60 [facility] Comment on above: Performed By: #### B 12FOL, VITAD, IRON #### [facility] [address] [place] [address] Dr. Ekta Funk Globulin (S) [Mass/Vol] 4.6 g/dL Normal [facility] Comment on above: Performed By: #### B 12FOL, VITAD, IRON #### [facility] [address] [place] [address] Dr. Ekta Funk Glucose [Mass/Vol] 139 mg/dL Critically high 74-106 [facility] Comment on above: Performed By: #### B 12FOL, VITAD, IRON #### [facility] [address] [place] [address] Dr. Ekta Funk Potassium [Moles/Vol] 4.6 mmol/L Normal 3.5-5.1 [facility] Comment on above: Performed By: #### B 12FOL, VITAD, IRON #### [facility] [address] [place] [address] Dr. Ekta Funk Protein [Mass/Vol] 7.7 g/dL Normal 6.4-8.2 [facility] Comment on above: Performed By: #### B 12FOL, VITAD, IRON #### [facility] [address] [place] [address] Dr. Ekta Funk Sodium [Moles/Vol] 135 mmol/L Critically low 136-145 [facility] Comment on above: Performed By: #### B 12FOL, VITAD, IRON #### [facility] [address] [place] [address] Dr. Ekta Funk Urea nitrogen [Mass/Vol] 73.0 mg/dL Critically high 7.0-18.0 [facility] Comment on above: Performed By: #### B 12FOL, VITAD, IRON #### [facility] [address] [place] [address] Dr. Ekta Funk Urea nitrogen/Creatinine [Mass ratio] 23.0 mg/mg Normal [facility] Comment on above: Performed By: #### B 12FOL, VITAD, IRON #### [facility] [address] [place] [address] Dr. Ekta Funk BNPon 10-21-2022 Natriuretic peptide B (Bld) [Mass/Vol] 2007.0 pg/mL Critically high <=900.0 [facility] Comment on above: Performed By: #### C MP #### [facility] [address] [place] [address] Dr. Ekta Funk CBC AUTO DIFFon 10-21-2022 BASO # 0.0 103/ul Normal 0.0-0.1 [facility] Comment on above: Performed By: #### C BC #### [facility] [address] [address] [address] Ekta Funk Basophils/100 WBC (Bld) 0.2 % Normal 0.2-2.0 [facility] Comment on above: Performed By: #### C BC #### [facility] [address] [place] [address] Dr. Ekta Funk EO # 0.1 103/ul Normal 0.0-0.7 [facility] Comment on above: Performed By: #### C BC #### [facility] [address] [address] [address] Ekta Funk Eosinophils/100 WBC (Bld) 0.9 % Normal 0.9-7.0 [facility] Comment on above: Performed By: #### C BC #### [facility] [address] [place] [address] Dr. Ekta Funk Erythrocyte distribution width (RBC) [Ratio] 12.8 % Normal 11.0-15.0 [facility] Comment on above: Performed By: #### C BC #### [facility] [address] [place] [address] Dr. Ekta Funk Hematocrit (Bld) [Volume fraction] 38.8 % Normal 36.0-48.0 [facility] Comment on above: Performed By: #### C BC #### [facility] [address] [place] [address] Dr. Ekta Funk Hemoglobin (Bld) [Mass/Vol] 13.3 g/dL Normal 12.0-16.0 [facility] Comment on above: Performed By: #### C BC #### [facility] [address] [place] [address] Dr. Ekta Funk IG # 0.08 10e3/ul Critically high 0.00-0.03 [facility] Comment on above: Performed By: #### C BC #### [facility] [address] [place] [address] Dr. Ekta Funk IG % 0.8 % Critically high 0.0-0.5 [facility] Comment on above: Performed By: #### C BC #### [facility] [address] [place] [address] Dr. Ekta Funk LYMPH # 1.7 103/ul Normal 1.2-3.8 [facility] Comment on above: Performed By: #### C BC #### [facility] [address] [place] [address] Dr. Ekta Funk Lymphocytes/100 WBC (Bld) 17.3 % Critically low 20.5-60.0 [facility] Comment on above: Performed By: #### C BC #### [facility] [address] [place] [address] Dr. Ekta Funk MANUAL DIFF REQ NO Normal [facility] Comment on above: Performed By: #### C BC #### [facility] [address] [place] [address] Dr. Ekta Funk MCH (RBC) [Entitic mass] 32.1 pg Normal 26.7-34.0 [facility] Comment on above: Performed By: #### C BC #### [facility] [address] [place] [address] Dr. Ekta Funk MCHC (RBC) [Mass/Vol] 34.3 g/dL Normal 29.9-35.2 [facility] Comment on above: Performed By: #### C BC #### [facility] [address] [place] [address] Dr. Ekta Funk MCV (RBC) [Entitic vol] 93.7 fL Normal 81.0-99.0 [facility] Comment on above: Performed By: #### C BC #### [facility] [address] [place] [address] Dr. Ekta Funk MONO # 0.6 103/ul Normal 0.3-0.8 [facility] Comment on above: Performed By: #### C BC #### [facility] [address] [place] [address] Dr. Ekta Funk Monocytes/100 WBC (Bld) 6.4 % Normal 1.7-12.0 [facility] Comment on above: Performed By: #### C BC #### [facility] [address] [address] [address] Ekta Funk NEUT # 7.4 103/ul Critically high 1.4-6.5 [facility] Comment on above: Performed By: #### C BC #### [facility] [address] [address] [address] Ekta Funk Neutrophils/100 WBC (Bld) 74.4 % Normal 43.0-75.0 [facility] Comment on above: Performed By: #### C BC #### [facility] [address] [place] [address] Dr. Ekta Funk Platelet mean volume (Bld) [Entitic vol] 9.8 fL Normal 9.5-13.5 [facility] Comment on above: Performed By: #### C BC #### [facility] [address] [place] [address] Dr. Ekta Funk PLT 193 103/ul Normal 150-450 [facility] Comment on above: Performed By: #### C BC #### [facility] [address] [place] [address] Dr. Ekta Funk RBC 4.14 106/ul Critically low 4.20-5.40 [facility] Comment on above: Performed By: #### C BC #### [facility] [address] [place] [address] Dr. kEta Funk WBC 9.9 103/ul Normal 4.0-11.0 [facility] Comment on above: Performed By: #### C BC #### [facility] [address] [place] [address] Dr. Ekta Funk PROF 14(COMP METB)on 023 Albumin [Mass/Vol] 3.2 g/dL Critically low 3.4-5.0 [facility] Comment on above: Performed By: #### I NSULIN #### [facility] [address] [place] [address] Dr. Ekta Funk Albumin/Globulin [Mass ratio] 0.8 {ratio} Normal [facility] Comment on above: Performed By: #### I NSULIN #### [facility] [address] [address] [address] Ekta Funk ALP [Catalytic activity/Vol] 82 U/L Normal 46-116 [facility] Comment on above: Performed By: #### I NSULIN #### [facility] [address] [place] [address] Dr. Ekta Funk ALT [Catalytic activity/Vol] 38 U/L Normal 14-59 [facility] Comment on above: Performed By: #### I NSULIN #### [facility] [address] [place] [address] Dr. Ekta Funk Anion gap [Moles/Vol] 19.1 mmol/L Normal [facility] Comment on above: Performed By: #### I NSULIN #### [facility] [address] [place] [address] Dr. Ekta Funk AST [Catalytic activity/Vol] 19 U/L Normal 15-37 [facility] Comment on above: Performed By: #### I NSULIN #### [facility] [address] [place] [address] Dr. kEta Funk Bilirubin [Mass/Vol] 0.4 mg/dL Normal 0.2-1.0 [facility] Comment on above: Performed By: #### I NSULIN #### [facility] [address] [place] [address] Dr. Ekta Funk Calcium [Mass/Vol] 9.2 mg/dL Normal 8.5-10.1 [facility] Comment on above: Performed By: #### I NSULIN #### [facility] [address] [place] [address] Dr. Ekta Funk Chloride [Moles/Vol] 98 mmol/L Normal 98-107 [facility] Comment on above: Performed By: #### I NSULIN #### [facility] [address] [place] [address] Dr. Ekta Funk CO2 [Moles/Vol] 26.4 mmol/L Normal 21.0-32.0 [facility] Comment on above: Performed By: #### I NSULIN #### [facility] [address] [place] [address] Dr. Ekta Funk Creatinine [Mass/Vol] 2.20 mg/dL Critically high 0.55-1.02 [facility] Comment on above: Performed By: #### I NSULIN #### [facility] [address] [address] [address] Ekta Funk EGFR-AF CUBAN 26 mL/min/1.73m2 Critically low >=60 [facility] Comment on above: Performed By: #### I NSULIN #### [facility] [address] [address] [address] Ekta Funk EGFR-NON AF CUBAN 22 mL/min/1.73m2 Critically low >=60 [facility] Comment on above: Performed By: #### I NSULIN #### [facility] [address] [address] [address] Ekta Funk Globulin (S) [Mass/Vol] 3.8 g/dL Normal [facility] Comment on above: Performed By: #### I NSULIN #### [facility] [address] [address] [address] Ekta Funk Glucose [Mass/Vol] 142 mg/dL Critically high 74-106 [facility] Comment on above: Performed By: #### I NSULIN #### [facility] [address] [address] [address] Ekta Funk Potassium [Moles/Vol] 4.5 mmol/L Normal 3.5-5.1 [facility] Comment on above: Performed By: #### I NSULIN #### [facility] [address] [address] [address] Ekta Funk Protein [Mass/Vol] 7.0 g/dL Normal 6.4-8.2 [facility] Comment on above: Performed By: #### I NSULIN #### [facility] [address] [address] [address] Ekta Funk Sodium [Moles/Vol] 139 mmol/L Normal 136-145 [facility] Comment on above: Performed By: #### I NSULIN #### [facility] [address] [address] [address] Ekta Funk Urea nitrogen [Mass/Vol] 57.0 mg/dL Critically high 7.0-18.0 [facility] Comment on above: Performed By: #### I NSULIN #### [facility] [address] [address] [address] Ekta Funk Urea nitrogen/Creatinine [Mass ratio] 25.9 mg/mg Normal [facility] Comment on above: Performed By: #### I NSULIN #### [facility] [address] [address] [address] Ekta Funk T3, TOTAL (TRIIODOTHYRONINE) on 10-21-2022 T3, TOTAL 63 ng/dL Critically low 71-180 [facility] Comment on above: Performed By: #### C MP #### [facility] [address] [address] [address] Ekta Funk XR ABD FLAT_UPon 10-21-2022 [...] by: VISHNU MARIE Date: 2022-10-21 11:42 Normal [facility] XR CHEST 2 Von 10-21-2022 XR [...] by: CHRISTIANO MORALES Date: 2022-10-21 11:23 Normal [facility] BNPon 10-20-2022 Natriuretic peptide B (Bld) [Mass/Vol] 2512.0 pg/mL Critically high <=900.0 [facility] Comment on above: Performed By: #### B ElviraFOL VITAD, IRON #### [facility] [address] [place] [address] Dr. Ekta Funk CARDIAC BRITTANIE ADMITon 023 CK [Catalytic activity/Vol] 35 U/L Normal 26-192 [facility] Comment on above: Performed By: #### B 12FOL VITAD, IRON #### [facility] [address] [place] [address] Dr. Ekta Funk CK.MB [Mass/Vol] 0.64 ng/mL Normal <=3.60 [facility] Comment on above: Performed By: #### B QIAN VITAD, IRON #### [facility] [address] [place] [address] Dr. Ekta Funk HSTROP 28.1 pg/mL Normal 4.0-51.3 [facility] Comment on above: Result Comment: CUT- OFF POINTS HAVE BEEN ESTABLISHED BASED ON THE FOURTH UNIVERSAL DEFINITIONS OF MYOCARDIAL INFARCTION. THE UPPER REFERENCE LIMIT (URL) OF TROPONIN, DEFINED THE 99TH PERCENTILE OF cTnI DISTRIBUTION IN A REFERENCE POPULATION, HAS BEEN CONFIRMED THE DECISION THRESHOLD FOR CT DIAGNOSIS. Performed By: #### B ElviraFOHu VITAD, IRON #### [facility] [address] [place] [address] Dr. Ekta Funk EVELYN 57 ng/mL Normal 9-82 [facility] Comment on above: Performed By: #### B ElviraFOL VITAD, IRON #### [facility] [address] [place] [address] Dr. Ekta Funk CBC AUTO DIFFon 10-20-2022 BASO # 0.0 103/ul Normal 0.0-0.1 [facility] Comment on above: Performed By: #### C BC #### [facility] [address] [place] [address] Dr. Ekta Funk Basophils/100 WBC (Bld) 0.2 % Normal 0.2-2.0 [facility] Comment on above: Performed By: #### C BC #### [facility] [address] [place] [address] Dr. Ekta Funk EO # 0.2 103/ul Normal 0.0-0.7 [facility] Comment on above: Performed By: #### C BC #### [facility] [address] [place] [address] Dr. Ekta Funk Eosinophils/100 WBC (Bld) 1.4 % Normal 0.9-7.0 [facility] Comment on above: Performed By: #### C BC #### [facility] [address] [place] [address] Dr. Ekta Funk Erythrocyte distribution width (RBC) [Ratio] 12.9 % Normal 11.0-15.0 [facility] Comment on above: Performed By: #### C BC #### [facility] [address] [place] [address] Dr. Ekta Funk Hematocrit (Bld) [Volume fraction] 34.7 % Critically low 36.0-48.0 [facility] Comment on above: Performed By: #### C BC #### [facility] [address] [place] [address] Dr. Ekta Funk Hemoglobin (Bld) [Mass/Vol] 11.8 g/dL Critically low 12.0-16.0 [facility] Comment on above: Performed By: #### C BC #### [facility] [address] [place] [address] Dr. Ekta Funk IG # 0.09 10e3/ul Critically high 0.00-0.03 [facility] Comment on above: Performed By: #### C BC #### [facility] [address] [place] [address] Dr. Ekta Funk IG % 0.8 % Critically high 0.0-0.5 [facility] Comment on above: Performed By: #### C BC #### [facility] [address] [place] [address] Dr. Ekta Funk LYMPH # 1.9 103/ul Normal 1.2-3.8 [facility] Comment on above: Performed By: #### C BC #### [facility] [address] [address] [address] Ekta Funk Lymphocytes/100 WBC (Bld) 16.1 % Critically low 20.5-60.0 [facility] Comment on above: Performed By: #### C BC #### [facility] [address] [address] [address] Ekta Funk MANUAL DIFF REQ NO Normal [facility] Comment on above: Performed By: #### C BC #### [facility] [address] [place] [address] Dr. Ekta Funk MCH (RBC) [Entitic mass] 32.6 pg Normal 26.7-34.0 [facility] Comment on above: Performed By: #### C BC #### [facility] [address] [place] [address] Dr. Ekta Funk MCHC (RBC) [Mass/Vol] 34.0 g/dL Normal 29.9-35.2 [facility] Comment on above: Performed By: #### C BC #### [facility] [address] [place] [address] Dr. Ekta Funk MCV (RBC) [Entitic vol] 95.9 fL Normal 81.0-99.0 [facility] Comment on above: Performed By: #### C BC #### [facility] [address] [place] [address] Dr. Ekta Funk MONO # 0.8 103/ul Normal 0.3-0.8 [facility] Comment on above: Performed By: #### C BC #### [facility] [address] [place] [address] Dr. Ekta Funk Monocytes/100 WBC (Bld) 7.0 % Normal 1.7-12.0 [facility] Comment on above: Performed By: #### C BC #### [facility] [address] [place] [address] Dr. Ekta Funk NEUT # 8.8 103/ul Critically high 1.4-6.5 [facility] Comment on above: Performed By: #### C BC #### [facility] [address] [place] [address] Dr. Ekta Funk Neutrophils/100 WBC (Bld) 74.5 % Normal 43.0-75.0 [facility] Comment on above: Performed By: #### C BC #### [facility] [address] [place] [address] Dr. Ekta Funk Platelet mean volume (Bld) [Entitic vol] 9.8 fL Normal 9.5-13.5 [facility] Comment on above: Performed By: #### C BC #### [facility] [address] [place] [address] Dr. Ekta Funk PLT 203 103/ul Normal 150-450 [facility] Comment on above: Performed By: #### C BC #### [facility] [address] [place] [address] Dr. Ekta Funk RBC 3.62 106/ul Critically low 4.20-5.40 [facility] Comment on above: Performed By: #### C BC #### [facility] [address] [place] [address] Dr. Ekta Funk WBC 11.8 103/ul Critically high 4.0-11.0 [facility] Comment on above: Performed By: #### C BC #### [facility] [address] [place] [address] Dr. Ekta Funk CULTURE URINEon 10-20-2022 CULTURE URINE Culture Observations : NO GROWTH. Normal [facility] Comment on above: Performed By: #### I NSULIN #### [facility] [address] [place] [address] Dr. Ekta Funk Covid-19 PCR (CVDTB)on 10-11 SARS-CoV-2 (COVID-19) RNA GANESH+probe Ql (Unsp spec) Not detected Normal NOT DETECTED [facility] Comment on above: Result Comment: When [...] for this test is supported by the [place] [employer] and Human Service's declaration that [...] By: #### B 12FOL, VITAD, IRON #### [facility] [address] [place] [address] Dr. Ekta Funk ECHOCARDIO M/2D COMPLETEon 0 10-20-2022 ECHOCARDIO M/2D COMPLETE Patient: SHEILA MAC Exam Date: 10/20/2022 : 1950 Gender:F Ordering : DR KRZYSZTOF HARP . Admission #: [id number] Family : Order #: [id number] CLICK HERE TO VIEW EXAM ECHOCARDIOGRAM REPORT [...] M.D. on 10/20/2022 at 14:57 Normal [facility] PROF 14(COMP METB)on 023 Albumin [Mass/Vol] 2.8 g/dL Critically low 3.4-5.0 [facility] Comment on above: Performed By: #### B 12FOL, VITAD, IRON #### [facility] [address] [address] [address] Ekta Funk Albumin/Globulin [Mass ratio] 0.7 {ratio} Normal [facility] Comment on above: Performed By: #### B 12FOL, VITAD, IRON #### [facility] [address] [place] [address] Dr. Ekta Funk ALP [Catalytic activity/Vol] 84 U/L Normal 46-116 [facility] Comment on above: Performed By: #### B 12FOL, VITAD, IRON #### [facility] [address] [place] [address] Dr. Ekta Funk ALT [Catalytic activity/Vol] 29 U/L Normal 14-59 [facility] Comment on above: Performed By: #### B 12FOL, VITAD, IRON #### [facility] [address] [place] [address] Dr. Ekta Funk Anion gap [Moles/Vol] 15.9 mmol/L Normal [facility] Comment on above: Performed By: #### B 12FOL, VITAD, IRON #### [facility] [address] [place] [address] Dr. Ekta Funk AST [Catalytic activity/Vol] 15 U/L Normal 15-37 [facility] Comment on above: Performed By: #### B 12FOL, VITAD, IRON #### [facility] [address] [address] [address] Ekta Funk Bilirubin [Mass/Vol] 0.3 mg/dL Normal 0.2-1.0 [facility] Comment on above: Performed By: #### B 12FOL, VITAD, IRON #### [facility] [address] [place] [address] Dr. Ekta Funk Calcium [Mass/Vol] 8.9 mg/dL Normal 8.5-10.1 [facility] Comment on above: Performed By: #### B 12FOL, VITAD, IRON #### [facility] [address] [place] [address] Dr. Ekta uFnk Chloride [Moles/Vol] 103 mmol/L Normal 98-107 [facility] Comment on above: Performed By: #### B 12FOL, VITAD, IRON #### [facility] [address] [place] [address] Dr. Ekta Funk CO2 [Moles/Vol] 26.3 mmol/L Normal 21.0-32.0 [facility] Comment on above: Performed By: #### B 12FOL, VITAD, IRON #### [facility] [address] [place] [address] Dr. Ekta Funk Creatinine [Mass/Vol] 1.99 mg/dL Critically high 0.55-1.02 [facility] Comment on above: Performed By: #### B 12FOL, VITAD, IRON #### [facility] [address] [place] [address] Dr. Ekta Funk EGFR-AF CUBAN 30 mL/min/1.73m2 Critically low >=60 [facility] Comment on above: Performed By: #### B 12FOL, VITAD, IRON #### [facility] [address] [place] [address] Dr. Ekta Funk EGFR-NON AF CUBAN 24 mL/min/1.73m2 Critically low >=60 [facility] Comment on above: Performed By: #### B 12FOL, VITAD, IRON #### [facility] [address] [place] [address] Dr. Ekta Funk Globulin (S) [Mass/Vol] 4.1 g/dL Normal [facility] Comment on above: Performed By: #### B 12FOL, VITAD, IRON #### [facility] [address] [place] [address] Dr. Ekta Funk Glucose [Mass/Vol] 115 mg/dL Critically high 74-106 T [facility] Comment on above: Performed By: #### B 12FOL, VITAD, IRON #### [facility] [address] [place] [address] Dr. Ekta Funk Potassium [Moles/Vol] 5.2 mmol/L Critically high 3.5-5.1 [facility] Comment on above: Performed By: #### B 12FOL, VITAD, IRON #### [facility] [address] [place] [address] Dr. Ekta Funk Protein [Mass/Vol] 6.9 g/dL Normal 6.4-8.2 [facility] Comment on above: Performed By: #### B 12FOL, VITAD, IRON #### [facility] [address] [place] [address] Dr. Ekta Funk Sodium [Moles/Vol] 140 mmol/L Normal 136-145 [facility] Comment on above: Performed By: #### B 12FOL, VITAD, IRON #### [facility] [facility] [address] [place] [address] Dr. Ekta Funk Urea nitrogen [Mass/Vol] 45.0 mg/dL Critically high 7.0-18.0 [facility] Comment on above: Performed By: #### B 12FOL, VITAD, IRON #### [facility] [address] [place] [address] Dr. Ekta Funk Urea nitrogen/Creatinine [Mass ratio] 22.6 mg/mg Normal [facility] Comment on above: Performed By: #### B 12FOL, VITAD, IRON #### [facility] [address] [place] [address] Dr. Ekta Funk T4on 10-20-2022 T4 [Mass/Vol] 6.10 ug/dL Normal 4.80-13.90 [facility] Comment on above: Performed By: #### B 12FOL, VITAD, IRON #### [facility] [address] [place] [address] Dr. Ekta Funk TSHon 10-20-2022 TSH 1.336 uIU/mL Normal 0.358-3.740 [facility] Comment on above: Performed By: #### B 12FOL, VITAD, IRON #### [facility] [address] [place] [address] Dr. Ekta Funk UA RANDOM W/MICROSCOPICon BACTERIA TRACE Abnormal NONE SEEN [facility] Comment on above: Performed By: #### B 12FOL, VITAD, IRON #### [facility] [address] [place] [address] Dr. Ekta Funk Bilirubin Ql (U) Negative Normal NEGATIVE [facility] Comment on above: Performed By: #### B 12FOL, VITAD, IRON #### [facility] [address] [place] [address] Dr. Ekta Funk CAST NONE SEEN Normal NONE SEEN [facility] Comment on above: Performed By: #### B 12FOL, VITAD, IRON #### [facility] [address] [place] [address] Dr. Ekta Funk Clarity (U) CLEAR Normal CLEAR [facility] Comment on above: Performed By: #### B 12FOL, VITAD, IRON #### [facility] [address] [place] [address] Dr. Ekta Funk Color (U) LT. YELLOW Normal YELLOW [facility] Comment on above: Performed By: #### B 12FOL, VITAD, IRON #### [facility] [address] [place] [address] Dr. Ekta Funk Crystals LM Nom (Urine sed) NONE SEEN Normal NONE SEEN [facility] Comment on above: Performed By: #### B 12FOL, VITAD, IRON #### [facility] [address] [place] [address] Dr. Ekta Funk Epithelial cells LM Ql (Urine sed) RARE Normal NONE SEEN /RARE [facility] Comment on above: Performed By: #### B 12FOL, VITAD, IRON #### [facility] [address] [place] [address] Dr. Ekta Funk Glucose Ql (U) Negative Normal NEGATIVE [facility] Comment on above: Performed By: #### B 12FOL, VITAD, IRON #### [facility] [address] [address] [address] Ekta Funk Hemoglobin Ql (U) Negative Normal NEGATIVE [facility] Comment on above: Performed By: #### B 12FOL, VITAD, IRON #### [facility] [address] [place] [address] Dr. Ekta Funk Ketones Ql (U) Negative Normal NEGATIVE [facility] Comment on above: Performed By: #### B 12FOL, VITAD, IRON #### [facility] [address] [address] [address] Ekta Funk LEUKOCYTES Negative Normal NEGATIVE [facility] Comment on above: Performed By: #### B 12FOL, VITAD, IRON #### [facility] [address] [place] [address] Dr. Ekta Funk MUCOUS NONE SEEN Normal NONE SEEN [facility] Comment on above: Performed By: #### B 12FOL, VITAD, IRON #### [facility] [address] [place] [address] Dr. Ekta Funk Nitrite Ql (U) Negative Normal NEGATIVE [facility] Comment on above: Performed By: #### B 12FOL, VITAD, IRON #### [facility] [address] [place] [address] Dr. Ekta Funk pH (U) 6.0 [pH] Normal 5-9 [facility] Comment on above: Performed By: #### B 12FOL, VITAD, IRON #### [facility] [address] [place] [address] Dr. Ekta Funk RBC 0-2 Normal 0-2 [facility] Comment on above: Performed By: #### B 12FOL, VITAD, IRON #### [facility] [address] [place] [address] Dr. Ekta Funk SPEC GRAVITY <=1.005 Abnormal 1.005-<=1.025 [facility] Comment on above: Performed By: #### B 12FOL, VITAD, IRON #### [facility] [address] [place] [address] Dr. Ekta Funk UA PROTEIN Negative Normal NEGATIVE/ TRACE [facility] Comment on above: Performed By: #### B 12FOL, VITAD, IRON #### [facility] [address] [address] [address] Ekta Funk Urobilinogen Qn (U) 0.2 {Ivan'U}/dL Normal 0.2 - 1. 0 [facility] Comment on above: Performed By: #### B 12FOL, VITAD, IRON #### [facility] [address] [place] [address] Dr. Ekta Funk WBC NONE SEEN Normal NONE SEEN [facility] Comment on above: Performed By: #### B 12FOL, VITAD, IRON #### [facility] [address] [place] [address] Dr. Ekta Funk BNPon 10-19-2022 Natriuretic peptide B (Bld) [Mass/Vol] 1355.0 pg/mL Critically high <=900.0 [facility] Comment on above: Performed By: #### B 12FOL, VITAD, IRON #### [facility] [address] [place] [address] Dr. Ekta Funk INSULINon 10-19-2022 Insulin 12.4 uIU/mL Normal 2.6-24.9 [facility] Comment on above: Performed By: #### I NSULIN #### [facility] [address] [place] [address] Dr. Ekta Funk OCC BLD IMMUNO SCREENon OCCULT BLOOD Positive Abnormal NEGATIVE [facility] Comment on above: Performed By: #### B 12FOL, VITAD, IRON #### [facility] [address] [place] [address] Dr. Ekta Funk PROF CHEM 8 (BAS METB)on Anion gap [Moles/Vol] 15.8 mmol/L Normal [facility] Comment on above: Performed By: #### B 12FOL, VITAD, IRON #### [facility] [address] [place] [address] Dr. Ekta Funk Calcium [Mass/Vol] 8.8 mg/dL Normal 8.5-10.1 [facility] Comment on above: Performed By: #### B 12FOL, VITAD, IRON #### [facility] [address] [place] [address] Dr. Ekta Funk Chloride [Moles/Vol] 107 mmol/L Normal 98-107 [facility] Comment on above: Performed By: #### B 12FOL, VITAD, IRON #### [facility] [address] [place] [address] Dr. Ekta Funk CO2 [Moles/Vol] 21.5 mmol/L Normal 21.0-32.0 [facility] Comment on above: Performed By: #### B 12FOL, VITAD, IRON #### [facility] [address] [place] [address] Dr. Ekta Funk Creatinine [Mass/Vol] 1.62 mg/dL Critically high 0.55-1.02 [facility] Comment on above: Performed By: #### B 12FOL, VITAD, IRON #### [facility] [address] [place] [address] Dr. Ekta Funk EGFR-AF CUBAN 38 mL/min/1.73m2 Critically low >=60 [facility] Comment on above: Performed By: #### B 12FOL, VITAD, IRON #### [facility] [address] [place] [address] Dr. Ekta Funk EGFR-NON AF CUBAN 31 mL/min/1.73m2 Critically low >=60 [facility] Comment on above: Performed By: #### B 12FOL, VITAD, IRON #### [facility] [address] [place] [address] Dr. Ekta Funk Glucose [Mass/Vol] 134 mg/dL Critically high 74-106 [facility] Comment on above: Performed By: #### B 12FOL, VITAD, IRON #### [facility] [address] [place] [address] Dr. Ekta Funk Potassium [Moles/Vol] 5.3 mmol/L Critically high 3.5-5.1 [facility] Comment on above: Performed By: #### B 12FOL, VITAD, IRON #### [facility] [address] [place] [address] Dr. Ekta Funk Sodium [Moles/Vol] 139 mmol/L Normal 136-145 [facility] Comment on above: Performed By: #### B 12FOL, VITAD, IRON #### [facility] [address] [place] [address] Dr. Ekta Funk Urea nitrogen [Mass/Vol] 37.0 mg/dL Critically high 7.0-18.0 [facility] Comment on above: Performed By: #### B 12FOL, VITAD, IRON #### [facility] [address] [place] [address] Dr. Ekta Funk Urea nitrogen/Creatinine [Mass ratio] 22.8 mg/mg Normal [facility] Comment on above: Performed By: #### B 12FOL, VITAD, IRON #### [facility] [address] [place] [address] Dr. Ekta Funk TROPONIN, HIGH SENSITIVITYon 10-19-2022 HSTROP 53.2 pg/mL Critically high 4.0-51.3 [facility] Comment on above: Result Comment: CUT- OFF POINTS HAVE BEEN ESTABLISHED BASED ON THE FOURTH UNIVERSAL DEFINITIONS OF MYOCARDIAL INFARCTION. THE UPPER REFERENCE LIMIT (URL) OF TROPONIN, DEFINED THE 99TH PERCENTILE OF cTnI DISTRIBUTION IN A REFERENCE POPULATION, HAS BEEN CONFIRMED THE DECISION THRESHOLD FOR CT DIAGNOSIS. Performed By: #### B 12FOL, VITAD, IRON #### [facility] [address] [place] [address] Dr. Ekta Funk BNPon 10-18-2022 Natriuretic peptide B (Bld) [Mass/Vol] 1386.0 pg/mL Critically high <=900.0 [facility] Comment on above: Performed By: #### C VDTBH #### [facility] [address] [place] [address] Dr. Ekta Funk CARDIAC BRITTANIE ADMITon 023 CK [Catalytic activity/Vol] 34 U/L Normal 26-192 [facility] Comment on above: Performed By: #### C VDTBH #### [facility] [address] [address] [address] Ekta Funk CK.MB [Mass/Vol] 1.43 ng/mL Normal <=3.60 [facility] Comment on above: Performed By: #### C VDTBH #### [facility] [address] [address] [address] Ekta Funk HSTROP 74.1 pg/mL Critically high 4.0-51.3 [facility] Comment on above: Result Comment: CUT- OFF POINTS HAVE BEEN ESTABLISHED BASED ON THE FOURTH UNIVERSAL DEFINITIONS OF MYOCARDIAL INFARCTION. THE UPPER REFERENCE LIMIT (URL) OF TROPONIN, DEFINED THE 99TH PERCENTILE OF cTnI DISTRIBUTION IN A REFERENCE POPULATION, HAS BEEN CONFIRMED THE DECISION THRESHOLD FOR CT DIAGNOSIS. Performed By: #### C VDTBH #### [facility] [address] [place] [address] Dr. Ekta Funk EVELYN 52 ng/mL Normal 9-82 [facility] Comment on above: Performed By: #### C VDTBH #### [facility] [address] [place] [address] Dr. Ekta Funk CBC AUTO DIFFon 10-18-2022 BASO # 0.0 103/ul Normal 0.0-0.1 [facility] Comment on above: Performed By: #### C BC #### [facility] [address] [place] [address] Dr. Ekta Funk Basophils/100 WBC (Bld) 0.3 % Normal 0.2-2.0 [facility] Comment on above: Performed By: #### C BC #### [facility] [address] [place] [address] Dr. Ekta Funk EO # 0.1 103/ul Normal 0.0-0.7 [facility] Comment on above: Performed By: #### C BC #### [facility] [address] [place] [address] Dr. Ekta Funk Eosinophils/100 WBC (Bld) 0.9 % Normal 0.9-7.0 [facility] Comment on above: Performed By: #### C BC #### [facility] [address] [place] [address] Dr. Ekta Funk Erythrocyte distribution width (RBC) [Ratio] 13.2 % Normal 11.0-15.0 [facility] Comment on above: Performed By: #### C BC #### [facility] [address] [place] [address] Dr. Ekta Funk Hematocrit (Bld) [Volume fraction] 38.9 % Normal 36.0-48.0 [facility] Comment on above: Performed By: #### C BC #### [facility] [address] [place] [address] Dr. Ekta Funk Hemoglobin (Bld) [Mass/Vol] 12.4 g/dL Normal 12.0-16.0 [facility] Comment on above: Performed By: #### C BC #### [facility] [address] [place] [address] Dr. Ekta Funk IG # 0.08 10e3/ul Critically high 0.00-0.03 [facility] Comment on above: Performed By: #### C BC #### [facility] [address] [place] [address] Dr. Ekta Funk IG % 0.5 % Normal 0.0-0.5 [facility] Comment on above: Performed By: #### C BC #### [facility] [address] [place] [address] Dr. Ekta Funk LYMPH # 1.4 103/ul Normal 1.2-3.8 [facility] Comment on above: Performed By: #### C BC #### [facility] [address] [place] [address] Dr. Ekta Funk Lymphocytes/100 WBC (Bld) 9.6 % Critically low 20.5-60.0 [facility] Comment on above: Performed By: #### C BC #### [facility] [address] [place] [address] Dr. Ekta Funk MANUAL DIFF REQ NO Normal [facility] Comment on above: Performed By: #### C BC #### [facility] [address] [place] [address] Dr. Ekta Funk MCH (RBC) [Entitic mass] 32.3 pg Normal 26.7-34.0 [facility] Comment on above: Performed By: #### C BC #### [facility] [address] [address] [address] Ekta Funk MCHC (RBC) [Mass/Vol] 31.9 g/dL Normal 29.9-35.2 [facility] Comment on above: Performed By: #### C BC #### [facility] [address] [address] [address] Ekta Funk MCV (RBC) [Entitic vol] 101.3 fL Critically high 81.0-99.0 [facility] Comment on above: Performed By: #### C BC #### [facility] [address] [place] [address] Dr. Ekta Funk MONO # 0.9 103/ul Critically high 0.3-0.8 [facility] Comment on above: Performed By: #### C BC #### [facility] [address] [place] [address] Dr. Ekta Funk Monocytes/100 WBC (Bld) 6.3 % Normal 1.7-12.0 [facility] Comment on above: Performed By: #### C BC #### [facility] [address] [place] [address] Dr. Ekta Funk NEUT # 12.0 103/ul Critically high 1.4-6.5 [facility] Comment on above: Performed By: #### C BC #### [facility] [address] [place] [address] Dr. Ekta Funk Neutrophils/100 WBC (Bld) 82.4 % Critically high 43.0-75.0 [facility] Comment on above: Performed By: #### C BC #### [facility] [address] [place] [address] Dr. Ekta Funk Platelet mean volume (Bld) [Entitic vol] 9.7 fL Normal 9.5-13.5 [facility] Comment on above: Performed By: #### C BC #### [facility] [address] [address] [address] Ekta Funk PLT 176 103/ul Normal 150-450 [facility] Comment on above: Performed By: #### C BC #### [facility] [address] [address] [address] Ekta Funk RBC 3.84 106/ul Critically low 4.20-5.40 [facility] Comment on above: Performed By: #### C BC #### [facility] [address] [address] [address] Ekta Funk WBC 14.6 103/ul Critically high 4.0-11.0 [facility] Comment on above: Performed By: #### C BC #### [facility] [address] [place] [address] Dr. Ekta Funk FREE THYROXINE INDEX T7on FTI 2.34 Normal 1.30-4.50 [facility] Comment on above: Performed By: #### C VDTBH #### [facility] [address] [place] [address] Dr. Ekta Funk T3U 36.0 % Normal 30.0-39.0 [facility] Comment on above: Performed By: #### C VDTBH #### [facility] [address] [place] [address] Dr. Ekta Funk T4 [Mass/Vol] 6.50 ug/dL Normal 4.80-13.90 [facility] Comment on above: Performed By: #### C VDTBH #### [facility] [address] [place] [address] Dr. Ekta Funk GLYCOHEMOGLOBIN A1Con 2022 ADA RECOMMENDATION SEE BELOW Normal [facility] Comment on above: Result Comment: ADA RECOMMENDED LIMIT 4.0 - 6.0 ADA THERAPEUTIC TARGET < 7.0 ACTION SUGGESTED > 7.0 Performed By: #### B 12FOL, VITAD, IRON #### [facility] [address] [place] [address] Dr. Ekta Funk Glucose [Mass/Vol] 140 mg/dL Normal [facility] Comment on above: Performed By: #### B 12FOL, VITAD, IRON #### [facility] [address] [address] [address] Ekta Funk HbA1c (Bld) [Mass fraction] 6.5 % Critically high 4.5-6.2 [facility] Comment on above: Performed By: #### B 12FOL, VITAD, IRON #### [facility] [address] [address] [address] Ekta Funk IRONon 10-18-2022 Iron [Mass/Vol] 62.0 ug/dL Normal 50.0-170.0 [facility] Comment on above: Performed By: #### B 12FOL, VITAD, IRON #### [facility] [address] [place] [address] Dr. Ekta Funk LIPID PROFILEon 10-18-2022 CHOL-HDL RATIO NORM SEE BELOW Normal [facility] Comment on above: Result Comment: 3.3 - 4.4 LOW RISK 4.4 - 7.1 AVERAGE RISK 7.1 - 11.0 MODERATE RISK >11.0 HIGH RISK Performed By: #### C VDTBH #### [facility] [address] [address] [address] Ekta Funk Cholesterol [Mass/Vol] 242 mg/dL Critically high <=200 [facility] Comment on above: Performed By: #### C VDTBH #### [facility] [address] [address] [address] Ekta Funk Cholesterol in HDL [Mass/Vol] 74 mg/dL Critically high 40-60 [facility] Comment on above: Performed By: #### C VDTBH #### [facility] [address] [address] [address] Ekta Funk Cholesterol in LDL [Mass/Vol] 139.4 mg/dL Normal [facility] Comment on above: Performed By: #### C VDTBH #### [facility] [address] [address] [address] Ekta Funk Cholesterol.total/Ch olesterol in HDL [Mass ratio] 3.3 {ratio} Normal [facility] Comment on above: Performed By: #### C VDTBH #### [facility] [address] [address] [address] Ekta Funk HDL NORMAL > or = 60 mg/dl - LO W CARDIOVASCULAR RISK <40 mg/dl - HIGH CARDIOVASCULAR RISK Normal [facility] Comment on above: Performed By: #### C VDTBH #### [facility] [address] [address] [address] Ekta Funk LDL CALC NORMAL SEE BELOW Normal [facility] Comment on above: Result Comment: <100 mg/dl OPTIMAL 100 - 129 mg/dl NEAR OR ABOVE OPTIMAL 130 - 159 mg/dl BORDERLINE HIGH 160 - 189 mg/dl HIGH >190 mg/dl VERY HIGH Performed By: #### C VDTBH #### [facility] [address] [place] [address] Dr. Ekta Funk Triglyceride [Mass/Vol] 143 mg/dL Normal <=150 [facility] Comment on above: Performed By: #### C VDTBH #### [facility] [address] [address] [address] Ekta Funk VLDL CALC 28.6 mg/dL Normal [facility] Comment on above: Performed By: #### C VDTBH #### [facility] [address] [place] [address] Dr. Ekta Funk PROF 14(COMP METB)on 023 Albumin [Mass/Vol] 2.8 g/dL Critically low 3.4-5.0 [facility] Comment on above: Performed By: #### C VDTBH #### [facility] [address] [place] [address] Dr. Ekta Funk Albumin/Globulin [Mass ratio] 0.7 {ratio} Normal [facility] Comment on above: Performed By: #### C VDTBH #### [facility] [address] [place] [address] Dr. Ekta Funk ALP [Catalytic activity/Vol] 90 U/L Normal 46-116 [facility] Comment on above: Performed By: #### C VDTBH #### [facility] [address] [place] [address] Dr. Ekta Funk ALT [Catalytic activity/Vol] 26 U/L Normal 14-59 [facility] Comment on above: Performed By: #### C VDTBH #### [facility] [address] [place] [address] Dr. Ekta Funk Anion gap [Moles/Vol] 14.5 mmol/L Normal [facility] Comment on above: Performed By: #### C VDTBH #### [facility] [address] [address] [address] Ekta Funk AST [Catalytic activity/Vol] 14 U/L Critically low 15-37 [facility] Comment on above: Performed By: #### C VDTBH #### [facility] [address] [place] [address] Dr. Ekta Funk Bilirubin [Mass/Vol] 0.4 mg/dL Normal 0.2-1.0 [facility] Comment on above: Performed By: #### C VDTBH #### [facility] [address] [place] [address] Dr. Ekta Funk Calcium [Mass/Vol] 8.9 mg/dL Normal 8.5-10.1 [facility] Comment on above: Performed By: #### C VDTBH #### [facility] [address] [place] [address] Dr. Ekta Funk Chloride [Moles/Vol] 106 mmol/L Normal 98-107 [facility] Comment on above: Performed By: #### C VDTBH #### [facility] [address] [place] [address] Dr. Ekta Funk CO2 [Moles/Vol] 23.5 mmol/L Normal 21.0-32.0 [facility] Comment on above: Performed By: #### C VDTBH #### [facility] [address] [place] [address] Dr. Ekta Funk Creatinine [Mass/Vol] 1.70 mg/dL Critically high 0.55-1.02 [facility] Comment on above: Performed By: #### C VDTBH #### [facility] [address] [address] [address] Ekta Funk EGFR-AF CUBAN 36 mL/min/1.73m2 Critically low >=60 [facility] Comment on above: Performed By: #### C VDTBH #### [facility] [address] [address] [address] Ekta Funk EGFR-NON AF CUBAN 29 mL/min/1.73m2 Critically low >=60 [facility] Comment on above: Performed By: #### C VDTBH #### [facility] [address] [address] [address] Ekta Funk Globulin (S) [Mass/Vol] 4.0 g/dL Normal [facility] Comment on above: Performed By: #### C VDTBH #### [facility] [address] [place] [address] Dr. Ekta Funk Glucose [Mass/Vol] 99 mg/dL Normal 74-106 [facility] Comment on above: Performed By: #### C VDTBH #### [facility] [address] [place] [address] Dr. Ekta Funk Potassium [Moles/Vol] 5.0 mmol/L Normal 3.5-5.1 [facility] Comment on above: Performed By: #### C VDTBH #### [facility] [address] [place] [address] Dr. Ekta Funk Protein [Mass/Vol] 6.8 g/dL Normal 6.4-8.2 [facility] Comment on above: Performed By: #### C VDTBH #### [facility] [address] [place] [address] Dr. Ekta Funk Sodium [Moles/Vol] 139 mmol/L Normal 136-145 [facility] Comment on above: Performed By: #### C VDTBH #### [facility] [address] [place] [address] Dr. Ekta Funk Urea nitrogen [Mass/Vol] 36.0 mg/dL Critically high 7.0-18.0 [facility] Comment on above: Performed By: #### C VDTBH #### [facility] [address] [place] [address] Dr. Ekta Funk Urea nitrogen/Creatinine [Mass ratio] 21.2 mg/mg Normal [facility] Comment on above: Performed By: #### C VDTB #### [facility] [address] [place] [address] Dr. Ekta Funk TSHon 10-18-2022 TSH 0.910 uIU/mL Normal 0.358-3.740 [facility] Comment on above: Performed By: #### C VDTB #### [facility] [address] [place] [address] Dr. Ekta Funk Covid-19 PCR ([facility])on 09-10 SARS-CoV-2 (COVID-19) RNA GANESH+probe Ql (Unsp spec) Detected Abnormal NOT DETECTED [facility] Comment on above: Result Comment: This test is not yet approved or cleared by the [place] FDA. When there are no FDA-approved or cleared tests available, and other criteria are met, FDA can make tests available under an emergency access mechanism called an Emergency Use Authorization (EUA). The EUA for this test is supported by the [employer] Operator of Health and Human Service's declaration [...] used). Performed By: #### C MP #### [facility] [address] [place] [address] Dr. Ekta Funk INFLUENZA A AND B AGon 09-25 INFLUANEGH SEE BELOW Normal [facility] Comment on above: Result Comment: Nega tive for Flu A protein angiten. Infection due to Flu A cannot be ruled out. Flu A angiten in the sample may be below the detection limit of the test. Performed By: #### B 12FOL, VITAD, IRON #### [facility] [address] [place] [address] Dr. Ekta Funk INFLUBNEGH SEE BELOW Normal [facility] Comment on above: Result Comment: Nega tive for Flu B protein antigen. Infection due to Flu B cannot be ruled out. Flu B antigen in the sample may be below the detection limit of the test. Performed By: #### B 12FOL, VITAD, IRON #### [facility] [address] [address] [address] Ekta Funk INFLUENZA A AG Negative Normal NEGATIVE SEE COMMENT [facility] Comment on above: Performed By: #### B 12FOL, VITAD, IRON #### [facility] [address] [address] [address] Ekta Funk INFLUENZA B AG Negative Normal NEGATIVE SEE COMMENT [facility] Comment on above: Performed By: #### B 12FOL, VITAD, IRON #### [facility] [address] [address] [address] Ekta Funk US CAROTID ART BILon [...] by: GODWIN BECK Date: 2022-05-26 16:06 Normal [facility] MRI BRAIN WO CONon 2 MRI [...] by: VISHNU MARIE Date: 2022-05-25 10:45 Normal [facility] ECHOCARDIO M/2D COMPLETEon 0 05-24-2022 ECHOCARDIO M/2D COMPLETE Patient: SHEILA MAC Exam Date: 05/24/2022 : 1950 Gender:F Ordering : DR KRZYSZTOF HARP . Admission #: [id number] Family : Order #: [id number] CLICK HERE TO VIEW EXAM ECHOCARDIOGRAM REPORT [...] M.D. on 05/24/2022 at 14:45 Normal [facility] BASIC METABOLIC PANELon 11-08 Calcium mass conc 9.4 mg/dL Normal 8.6-10.3 [facility] Comment on above: Order Comment: No: D o not add to previous draw Performed By: #### 0 0071 #### [facility] [address] [place] [address], [place] Chloride molar conc 108 mmol/L High 98-107 [facility] Comment on above: Order Comment: No: D o not add to previous draw Performed By: #### 0 0071 #### [facility] [address] [place] [address], [place] CO2 molar conc 22 mmol/L Normal 21-31 The [facility] Comment on above: Order Comment: No: D o not add to previous draw Performed By: #### 0 0071 #### [facility] [address] [place] [address], [place] Creatinine mass conc 1.18 mg/dL Normal 0.60-1.20 [facility] Comment on above: Order Comment: No: D o not add to previous draw Performed By: #### 0 0071 #### [facility] [address] [place] [address], [place] GFR/1.73 sq M predicted among blacks MDRD vol rate/area (S/P/Bld) 55 ml/min/1.73sq m Abnormal >60 [facility] Comment on above: Order Comment: No: D o not add to previous draw Performed By: #### 0 0071 #### [facility] [address] [place] [address], [place] GFR/1.73 sq M predicted among non-blacks MDRD vol rate/area (S/P/Bld) 45 ml/min/1.73sq m Abnormal >60 [facility] Comment on above: Order Comment: No: D o not add to previous draw Performed By: #### 0 0071 #### [facility] [address] [place] [address], [place] Glucose mass conc 166 mg/dL High 70-100 The [facility] Comment on above: Order Comment: No: D o not add to previous draw Performed By: #### 0 0071 #### [facility] [address] [place] [address], [facility] Potassium molar conc 4.1 mmol/L Normal 3.5-5.1 [facility] Comment on above: Order Comment: No: D o not add to previous draw Performed By: #### 0 0071 #### [facility] [address] [place] [address], [facility] Sodium molar conc 140 mmol/L Normal 136-145 [facility] Comment on above: Order Comment: No: D o not add to previous draw Performed By: #### 0 0071 #### [facility] [address] [place] [address], [facility] Urea nitrogen mass conc 21 mg/dL Normal 7-25 [facility] Comment on above: Order Comment: No: D o not add to previous draw Performed By: #### 0 0071 #### [facility] [address] [place] [address], [facility] CBC COMPLETE BLOOD COUNTon 0 - Erythrocyte distribution width Ratio (RBC) 12.9 % Normal 11.5-15.0 [facility] Comment on above: Order Comment: No: D o not add to previous draw Performed By: #### 5 [id number] #### [facility] [address] [place] [address], [facility] Hematocrit Volume Fraction (Bld) 36.7 % Normal 36.0-45.0 [facility] Comment on above: Order Comment: No: D o not add to previous draw Performed By: #### 5 [id number] #### [facility] [address] [place] [address], [facility] Hemoglobin mass conc (Bld) 12.4 g/dL Normal 12.0-15.0 [facility] Comment on above: Order Comment: No: D o not add to previous draw Performed By: #### 5 [id number] #### [facility] [address] [place] [address], [facility] MCH Entitic mass (RBC) 31.2 pg Normal 27.0-33.0 [facility] Comment on above: Order Comment: No: D o not add to previous draw Performed By: #### 5 [id number] #### [facility] [address] [place] [address], [facility] MCHC mass conc (RBC) 33.8 g/dL Normal 32.0-35.0 [facility] Comment on above: Order Comment: No: D o not add to previous draw Performed By: #### 5 [id number] #### [facility] [address] [place] [address], [facility] MCV Entitic volume (RBC) 92.4 fL Normal 82.0-98.0 [facility] Comment on above: Order Comment: No: D o not add to previous draw Performed By: #### 5 [id number] #### [facility] [address] [address], [facility] Nucleated RBC/100 WBC Ratio (Bld) 0 % Normal 0-0 [facility] Comment on above: Order Comment: No: D o not add to previous draw Performed By: #### 5 [id number] #### [facility] [address] [place] [address], [facility] PLAT CNT 227 10*3/uL Normal 150-400 [facility] Comment on above: Order Comment: No: D o not add to previous draw Performed By: #### 5 [id number] #### [facility] [address] [place] [address], [facility] RBC #/vol (Bld) 3.97 10*6/uL Normal 3.80-5.00 [facility] Comment on above: Order Comment: No: D o not add to previous draw Performed By: #### 5 [id number] #### [facility] [address] [place] [address], [facility] WBC #/vol (Bld) 5.55 10*3/uL Normal 4.00-10.60 [facility] Comment on above: Order Comment: No: D o not add to previous draw Performed By: #### 5 [id number] #### [facility] [address] Cardiovascular Lab Reporton 11-20-2018 Cardiovascular Lab Report [facility] Patient Name: Bubba [facility] Sheila MR #: [id number] Department of Physician: [facility] Shellie Gaspar M.D. Division of Service Date: 11/20/2018 Cardiology Birthdate: 1950 Adult Cardiovascular Room #: 3AB [id number] [facility] [address] [facility] [address] [place] [address] Cardiovascular Laboratory Report INDICATION: The patient is a 68-year-old woman who was evaluated in Cardiology Clinic because of new onset symptoms of shortness of breath on mild exertion. Her stress test showed evidence of [id number] area of inferoapical ischemia; because of that, she was referred for cardiac catheterization. PROCEDURES: 1. Right heart catheterization. 2. Bilateral selective coronary angiography. 3. Limited right femoral angiography. METHOD: Procedure was explained patient with risks and benefits. She signed informed consent. 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 The right groin area was prepped and draped in usual fashion. Using micropuncture technique, the right common femoral artery was accessed. The inner cannula was advanced. Limited femoral angiography was performed followed by upsizing to a 6-Ghanaian x 11 cm sheath. Access was also obtained using the same technique in the right common femoral vein and a 6-Ghanaian x 11 cm sheath was placed. A 6-Ghanaian Michel catheter was used for right heart catheterization with measurement of pressures and calculation of cardiac output using the estimated Ivory method. Michel catheter was removed. Bilateral selective coronary angiography was then performed using 6-Ghanaian JL4 and JR4 diagnostic catheters. Catheters were [...] Gaspar M.D. Date Trans: 11/20/2018 09:31 A/alvina [id number] cc: Krzysztof Harp M.D. [address] [facility] [id number] Normal The [facility] BASIC METABOLIC PANELon 11-08 Calcium mass conc 9.5 mg/dL Normal 8.6-10.3 The [facility] Comment on above: Order Comment: No: D o not add to previous draw Performed By: #### 0 0071 #### [facility] [address] [place] [address], [facility] Chloride molar conc 105 mmol/L Normal 98-107 The [facility] Comment on above: Order Comment: No: D o not add to previous draw Performed By: #### 0 0071 #### [facility] [address] [place] [address], [place] CO2 molar conc 24 mmol/L Normal 21-31 The [facility] Comment on above: Order Comment: No: D o not add to previous draw Performed By: #### 0 0071 #### [facility] [address] [place] [address], [place] Creatinine mass conc 1.42 mg/dL High 0.60-1.20 [facility] Comment on above: Order Comment: No: D o not add to previous draw Performed By: #### 0 0071 #### [facility] [address] [place] [address], [place] GFR/1.73 sq M predicted among blacks MDRD vol rate/area (S/P/Bld) 45 ml/min/1.73sq m Abnormal >60 [facility] Comment on above: Order Comment: No: D o not add to previous draw Performed By: #### 0 0071 #### [facility] [address] [place] [address], [place] GFR/1.73 sq M predicted among non-blacks MDRD vol rate/area (S/P/Bld) 36 ml/min/1.73sq m Abnormal >60 [facility] Comment on above: Order Comment: No: D o not add to previous draw Performed By: #### 0 0071 #### [facility] [address] [place] [address], [place] Glucose mass conc 86 mg/dL Normal 70-100 The [facility] Comment on above: Order Comment: No: D o not add to previous draw Performed By: #### 0 0071 #### [facility] [address] [place] [address], [facility] Potassium molar conc 4.2 mmol/L Normal 3.5-5.1 The [facility] Comment on above: Order Comment: No: D o not add to previous draw Performed By: #### 0 0071 #### [facility] [address] [place] [address], [facility] Sodium molar conc 138 mmol/L Normal 136-145 The [facility] Comment on above: Order Comment: No: D o not add to previous draw Performed By: #### 0 0071 #### [facility] [address] [place] [id number], [facility] Urea nitrogen mass conc 19 mg/dL Normal 7-25 The [facility] Comment on above: Order Comment: No: D o not add to previous draw Performed By: #### 0 0071 #### [facility] [address] CBC COMPLETE BLOOD COUNTon 0 - Erythrocyte distribution width Ratio (RBC) 13.0 % Normal 11.5-15.0 [facility] Comment on above: Order Comment: No: D o not add to previous draw Performed By: #### 5 [id number] #### [facility] [address] [place] [address], [facility] Hematocrit Volume Fraction (Bld) 38.3 % Normal 36.0-45.0 The [facility] Comment on above: Order Comment: No: D o not add to previous draw Performed By: #### 5 [id number] #### [facility] [address] [place] [id number], [facility] Hemoglobin mass conc (Bld) 12.6 g/dL Normal 12.0-15.0 The [facility] Comment on above: Order Comment: No: D o not add to previous draw Performed By: #### 5 0608 #### [facility] [address] [place] [id number], [facility] MCH Entitic mass (RBC) 31.1 pg Normal 27.0-33.0 The [facility] Comment on above: Order Comment: No: D o not add to previous draw Performed By: #### 5 0608 #### [facility] [address] MCHC mass conc (RBC) 32.9 g/dL Normal 32.0-35.0 [facility] Comment on above: Order Comment: No: D o not add to previous draw Performed By: #### 5 0608 #### [facility] [address] MCV Entitic volume (RBC) 94.6 fL Normal 82.0-98.0 The [facility] Comment on above: Order Comment: No: D o not add to previous draw Performed By: #### 5 [id number] #### [facility] [address] [facility] [address] Nucleated RBC/100 WBC Ratio (Bld) 0 % Normal 0-0 The [facility] Comment on above: Order Comment: No: D o not add to previous draw Performed By: #### 5 0608 #### [facility] [address] [facility] [place] [address], [facility] PLAT CNT 266 10*3/uL Normal 150-400 The [facility] Comment on above: Order Comment: No: D o not add to previous draw Performed By: #### 5 0608 #### [facility] [address] [facility]. [address] RBC #/vol (Bld) 4.05 10*6/uL Normal 3.80-5.00 The [facility] Comment on above: Order Comment: No: D o not add to previous draw Performed By: #### 5 0608 #### [facility] [address] WBC #/vol (Bld) 9.01 10*3/uL Normal 4.00-10.60 [facility] Comment on above: Order Comment: No: D o not add to previous draw Performed By: #### 5 [id number] #### [facility] [address] PROTHROMBIN TIMEon 9 INR Coag RelTime (PPP) 1.07 {INR} Normal 0.91-1.16 [facility] Comment on above: Order Comment: No: [...] 1995;108:[id number]-[id number]. Performed By: #### 5 [id number] #### [facility] [address] Prothrombin time (PT) Coag time (PPP) 13.9 s Normal 12.3-14.8 The [facility] Comment on above: Order Comment: No: D o not add to previous draw Result Comment: ALL RESULTS MUST BE INTERPRETED WITH RESPECT TO BLOOD DRAWING ARTIFACT OR DILUTION ERROR OF ANTICOAGULANT AT THE TIME OF SAMPLING. Performed By: #### 5 [id number] #### [facility] [address] Encounters Encounter Date Encounter Type Care Provider Facility Start: 01-16-2023 [facility] SAMSA . Facility :[facility]1 Start: 01-15-2023 End: 01-15-2023 ambulatory APRIL CASTANEDA . Facility:[facility] Start: 01-10-2023 End: 01-11-[address] KRZYSZTOF HARP . Facility:[facility] Start: 12-15-2022 End: 12-15-2022 ambulatory APRIL CASTANEDA . Facility:[facility] Start: 12-15-2022 ambulatory RODRIGUEZ RIVERA [facility] Start: 12-05-2022 End: 12-06-[address] [...] End: 11-20-2018 Patient encounter procedure PROVIDER UNKNOWN Facility:[facility] Start: 11-13-2018 End: 11-14-2018 Patient encounter procedure DEFAULT PHYSICIAN Facility:[facility] Start: 10-31-2018 End: 11-01-2018 Patient encounter procedure DEFAULT PHYSICIAN Facility:[facility] Start: 09-23-2018 End: 09-24-2018 Patient encounter procedure DEFAULT PHYSICIAN Facility:[facility] Start: 09-05-2018 End: 09-06-2018 Patient encounter procedure DEFAULT PHYSICIAN Facility:[facility] Payers Date Payer Category Payer Unknown [id number] 1950 Unknown [id number] 2.16.8 [id number] 1950 Unknown [id number] 2.16.8 40.1.177552.3.579.2.647 1950 Unknown [id number] 2.16.8 40.1.827931.3.579.2.647 1950 Unknown [id number] 2.16.8 40.1.470513.3.579.2.647 1950 Unknown [id number] 2.16.8 40.1.853537.3.579.2.647 1950 Unknown [id number] 2.16.84 0.1.540790.3.579.2.593 1950 Unknown [id number] 2.16.84 0.1.378911.3.579.2.593 1950 Unknown [id number] 2.16.84 0.1.959008.3.579.2.593 1950 Unknown [id number] 2.16.84 0.1.512982.3.579.2.593 1950 Unknown [id number] 2.16.84 0.1.639507.3.579.2.593 1950 Unknown [id number] 2.16.84 0.1.295671.3.579.2.593 1950 Unknown [id number] 2.16.84 0.1.682323.3.579.2.593 1950 Unknown [id number] 2.16.84 0.1.109231.3.579.2.593 1950 Unknown [id number] 2.16.84 0.1.309360.3.579.2.593 1950 Unknown [id number] 2.16.84 0.1.974165.3.579.2.593 1950 Unknown [id number] 2.16.84 0.1.913918.3.579.2.593 1950 Unknown [id number] 2.16.84 0.1.143980.3.579.2.593 1950 Unknown [id number] 2.16.84 0.1.036855.3.579.2.593 1950 Unknown [id number] 2.16.84 0.1.280961.3.579.2.593 1950 Unknown [id number] 2.16.84 0.1.683703.3.579.2.593 1950 Unknown [id number] 2.16.84 0.1.167959.3.579.2.593 1950 Unknown [id number] 2.16.84 0.1.040530.3.579.2.593 1950 Unknown [id number] 2.16.84 0.1.572547.3.579.2.593 1950 Unknown [id number] 2.16.84 0.1.947974.3.579.2.593 Medicare [id number] Unknown Progress note 12-15-2022 Note Date & [...] She will be (more content not included)... [facility] Progress note 12-15-2022 Note Date & Type Note Facility 12-15-2022 Note Review of Systems Cardiovascular: Positive for leg swelling. Respiratory: Positive for shortness of breath. Skin: Positive for color change. Neurological: Positive for headaches. All other systems reviewed and are negative. [facility] Clinical Note 07-25-2022 Note Date [...] authenticated by: VISHNU MARIE Date: 2022-07-25 13:25 [facility] Clinical Note 05-11-2022 Note Date [...] by: VISHNU MARIE Date: 2022-05-11 12:51 [facility] Clinical Note 02-14-2022 Note Date & Type Note Facility 02-14-2022 Note PROCEDURE: XR KNEE L T 4V or > COMPARISON: None. HISTORY: Osteoarthritis FINDINGS: BONES:No fracture, acute abnormality, or significant arthropathy. SOFT TISSUES:Negative. No visible soft tissue swelling. EFFUSION:Moderate suprapatellar joint effusion OTHER: Negative. IMPRESSION: Moderate joint effusion Electronically authenticated by: GODWIN BECK Date: 2022-02-14 17:30 [facility] Summary Purpose Family History No Family History Records FoundNo Family History Records FoundNo Family History Records Found Advance Directives No Advanced Directives Records FoundNo Advanced Directives Records FoundNo Advanced Directives Records Found Additional Source Comments INFORMATION SOURCE (unrecogn ized section and content) DATE CREATED AUTHOR 11/24/[address] [facility] DATE CREATED AUTHOR AUTHOR'S ORGANIZ ATION 12/19/2022 [facility] DATE CREATED AUTHOR AUTHOR'S ORGANIZ ATION 01/18/2023 [facility] FOR RECORDS PERTAINING TO PATIENTS [...] BE BASED ON THE PRIMARY CLINICAL RECORDS. [facility]. provides no warranty or guarantee of the accuracy or completeness of information in this document.
== END 2024-01-03 10:01 | disposition home or self-care (01) ==
LOC: US 10:01
PROVIDERS: PCP Family Medicine; Visit Provider Family Medicine
DX: K86.1 Other chronic pancreatitis (principal); K80.20 Calculus of gallbladder without cholecystitis without obstruction
CPT/HCPCS: 76705

== ENCOUNTER 2024-02-15 09:53 | Outpatient (OUT) | payer MEDICARE, SELFPAY ==
--- NOTE | 2024-02-15 10:00 | CA_ITS ---
Patient Name: EDIN SAMANIEGO MR#: [id number] : 1950 Exam Date: 02/15/2024 Ordering Doctor: DR Alvaro Harp . ECHOCARDIOGRAM REPORT PROCEDURE: CA ECHO DOPPLER COMPLETE INDICATIONS: Dyspnea COMPARISON: None. DESCRIPTION: COMPLETE ECHOCARDIOGRAM Real-time transthoracic echocardiography with 2D, M-mode, spectral and color flow Doppler performed. QUALITY: Technical quality was good. 63 , 136#, BP 134/98 LEFT VENTRICLE: Normal chamber size. Mild concentric left ventricular hypertrophy. Normal systolic function. LV EF: Normal left ventricular ejection fraction, (55%). DIASTOLIC: Normal diastolic function. ATRIAL SEPTUM: Visually appears intact. LEFT ATRIUM: Normal chamber size. RIGHT ATRIUM: Normal chamber size. RIGHT VENTRICLE: Normal chamber size. Normal right ventricular systolic function. TRICUSPID VALVE: Normal mobility and thickness. No stenosis with trivial regurgitation. No evidence of pulmonary hypertension. RVSP 29 mmHg MITRAL VALVE: Normal mobility and thickness. No evidence of mitral valve stenosis. There is no mitral annular calcification. Trivial mitral regurgitation. AORTIC VALVE: Normal trileaflet appearance. Normal leaflet mobility. No evidence of aortic valve stenosis. Trivial aortic regurgitation. AORTIC ROOT: Normal diameter and appearance. Ascending aorta is normal in size (3.5 cm). PULMONIC VALVE: Normal thickness and mobility. No stenosis. No regurgitation. PERICARDIUM: No evidence of pericardial effusion. IVC: Collapses with inspirations. IVC is normal in size. PLEURA: CONCLUSION: 1. Mild concentric left ventricular hypertrophy with normal systolic function. LVEF is 55%. 2. Normal right ventricular size and systolic function. 3. No significant valvular dysfunction. 4. Normal right-sided pressures. Adult Echocardiography Procedure Report Left Ventricle LVEDD (3.7 - 5.6 cm): 4.29 cm LVESD (2.2 - 4.0 cm): 2.96 cm LVIVS thickness (0.6 - 1.2 cm): 1.19 cm LVPW thickness (0.5 - 1.0 cm): 0.97 cm e': 0.09 m/s E - e': 6.34 LVOT Max Gradient: 2.21 mm[Hg] LVOT Area (cm2): 0.74 m/s Peak Velocity (LVOT): 0.74 m/s Mean Velocity (LVOT): 0.45 m/s LVOT Diameter 2.51 cm Left Atrium LA Volume Index (2D A2C): 31.98 ml/m2 Left Atrium Systolic Dimension: 3.51 cm Mitral Valve MV E to A Ratio: 0.61 Mitral Valve A-Wave Peak Velocity: 0.95 m/s Mitral Valve E-Wave Peak Velocity: 0.57 m/s Right Ventricle Aorta AO Root Diam: 3.50 cm Aortic Valve AoV Area (Peak Chris): 3.26 cm2, 3.29 cm2 AoV Area (VTI): 3.15 cm2, 3.21 cm2 Peak Velocity(Antegrade Flow): 1.12 m/s, 1.14 m/s Peak Gradient(Antegrade Flow): 5.04 mm[Hg], 5.23 mm[Hg] Mean Velocity(Antegrade Flow): 0.83 m/s, 0.83 m/s Mean Gradient(Antegrade Flow): 3.02 mm[Hg], 3.08 mm[Hg] Velocity Time Integral: 23.48 cm, 24.39 cm Tricuspid Valve Peak Velocity (Regurgitant Flow): 2.19 m/s, 2.53 m/s Pulmonic Valve Peak Velocity: 0.61 m/s Peak Gradient: 1.58 mm[Hg], 1.42 mm[Hg] Right Atrium Right Atrium Systolic Pressure: 38.66 ml, 38.66 ml Dictated by: Bong Gaspar M.D. on 02/15/2024 at 15:34 Approved by: Bong Gaspar M.D. on 02/15/2024 at 15:38
== END 2024-02-15 09:54 | disposition home or self-care (01) ==
LOC: CARD 09:54
PROVIDERS: PCP Family Medicine; Visit Provider Family Medicine
DX: R06.00 Dyspnea, unspecified (principal)
CPT/HCPCS: 93306

== ENCOUNTER 2024-03-10 11:01 | Outpatient (OUT) | payer MEDICARE, SELFPAY ==
--- NOTE | 2024-03-10 11:09 | XR_ITS ---
The [address] [address] Patient Name: EDIN SAMANIEGO MRN: [id number] date: 1950 Sex: F Assigned Patient Location: LAB Current Patient Location: Accession/Order Number: [id number] Exam Date: 03/10/2024 11:40 Report Date: 03/11/2024 13:47 At the request of: [id number] THOMPSON Procedure: XR hip RT 2V w/ pelvis PROCEDURE: XR hip RT 2V w/ pelvis HISTORY: Causalgia Of Right Lower Limb G57.71 ; right hip and buttock pain; no known injury COMPARISON: None. FINDINGS: BONES:Mild narrowing of right hip joint space and small degenerative osteophyte along superior rim of acetabulum. No fracture, dislocation, lesion, or articular surface irregularity. SOFT TISSUES:No visible soft tissue swelling. EFFUSION:None visible. OTHER: Degenerative changes of the visible lower lumbar spine. XR/XR hip RT 2V w/ pelvis IMPRESSION: 1. Mild degenerative changes of right hip joint. 2. Degenerative changes of lower lumbar spine which may contribute to symptoms. Electronically authenticated by: DANIEL PINEDA Date: 03/11/2024 13:47
--- OUTSIDE RECORDS SUMMARY | 2024-03-10 11:22 | XMS_ITS ---
Patient Summarization (C-CDA 2.1 CCD) Created on: March 10, 2024 Sheila Mac Cyndy : 1950 Sex: Female Author Organization Sample organization Care Team Providers Care Bar Helper Name Role Phone PHYSICIAN, DEFAULT Admitting [...] DONNA ., DR BLANKENSHIP Primary Care Unavailable JASONY ., DR BLANKENSHIP Admitting Unavailable DONNA ., DR BLANKENSHIP Consulting Unavailable JASONY ., DR BLANKENSHIP Attending Unavailable HOY ., DR BLANKENSHIP Primary Care Unavailable KRZYSZTOF HARP Referring Unavailable KRZYSZTOF HARP M Primary Care Unavailable KRZYSZTOF HARP Referring Unavailable KRZYSZTOF HARP M Primary Care Unavailable DARSHAN HERNANDEZ Attending Unavailable MD Ben Sanchez Attending Provider MD Krzysztof Harp Primary Care Provider [phone] Ben Sanchez Attending Unavailable Ben Sanchez Admitting Unavailable Krzysztof Harp Primary Care Unavailable Allergies Allergy Classification Reported Allergen(s) Allergy Type Date of Onset Reaction(s) Facility NSAIDs (1 source) NSAIDs Drug Allergy 4 [facility] Opioid Agonists (1 source) Morphine Drug Allergy 4 [facility] Penicillins (antibiotic) (1 source) Penicillins Drug Allergy 4 [facility] (5 sources) Morphine; 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: [MORPHINE] Drug Allergy 7 Vomiting [facility] Repository (3 sources) NSAIDs; 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: [NSAIDS (NON-STEROIDAL ANTI-INFLAMMATOR Y DRUG)] Drug allergy (disorder) 9 [facility] Repository (1 source) Penicillin Drug Allergy 9 [facility] (1 source) predniSONE Drug Allergy 9 [facility] Repository (2 sources) Iodinated Contrast- Oral and IV Dye Drug allergy (disorder) 5 [facility] Repository (5 sources) Penicillins; 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: [PENICILLINS] Propensity to adverse reactions to drug (disorder) 5 Rash [facility] Repository (4 sources) IODINATED CONTRAST MEDIA; 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: [IODINATED CONTRAST MEDIA] Propensity to adverse reactions to drug (disorder) 3 Anaphylaxis [facility] Repository (1 source) levoFLOXacin Drug Allergy 3 [facility] Repository (1 source) meloxicam Drug Allergy 3 [facility] Repository (1 source) Contrast media; 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: [DYE] Propensity to adverse reactions to drug (disorder) 7 [facility] Repository (1 source) MORPHOLINE ANALOGUES; 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: [MORPHOLINE ANALOGUES] Propensity to adverse reactions to drug (disorder) 7 [facility] Repository (2 sources) NSAIDS (Non-Steroidal Anti-Inflamma Propensity to adverse reactions 4 Stomach Ulcer [facility] Encounters Encounter Date Encounter Type Care Provider Facility Start: 02-19-2024 End: 02-19-2024 ambulatory MD Krzysztof Harp Work Phone: [facility] Work Phone: Start: 02-19-2024 End: 02-19-2024 Patient encounter procedure MD Krzysztof Harp Work Phone: [facility] Work Phone: Start: 02-05-2024 Non-patient / Non-visit MD Krzysztof Harp Work Phone: [facility] Work Phone: Start: 02-05-2024 End: 02-05-2024 Admission to same day surgery center MD Krzysztof Harp Work Phone: [facility] Work Phone: Start: 02-05-2024 End: 02-05-2024 ambulatory MD Krzysztof Harp Work Phone: [facility] Work Phone: Start: 01-16-2024 Non-patient / Non-visit MD Krzysztof Harp Work Phone: [facility] Work Phone: Start: 01-09-2024 End: 01-09-2024 ambulatory DARSHAN HERNANDEZ Not Available Start: 01-07-2024 ambulatory [facility] Start: 01-16-2023 ambulatory JN GARCIA . Facility :[facility] Start: 01-15-2023 End: 01-15-2023 ambulatory APRIL CASTANEDA . Facility:[facility] Start: 01-10-2023 End: 01-11-[address] KRZYSZTOF HARP . Facility:[facility] Start: 12-15-2022 End: 12-15-2022 ambulatory APRIL CASTANEDA . Facility:[facility] Start: 12-15-20[address] [facility] Start: 12-05-2022 End: 12-06-[address] [...] End: 11-20-2018 Patient encounter procedure PROVIDER UNKNOWN Facility:[facility] Start: 11-13-2018 End: 11-14-2018 Patient encounter procedure DEFAULT PHYSICIAN Facility:[facility] Start: 10-31-2018 End: 11-01-2018 Patient encounter procedure DEFAULT PHYSICIAN Facility:[facility] Start: 09-23-2018 End: 09-24-2018 Patient encounter procedure DEFAULT PHYSICIAN Facility:[facility] Start: 09-05-2018 End: 09-06-2018 Patient encounter procedure DEFAULT PHYSICIAN Facility:[facility] Goals Date Patient Goal Desired Activity /State Medications Current Medications Medication Drug Class(es) Dates Sig (Normalized) Sig (Original) aspirin 81 mg delayed release oral tablet (1 source) Platelet Aggregation Inhibitor, Nonsteroidal Anti-inflammatory Drug Start: 02-19-2024 take 81 mg by mouth once daily Aspirin Active 81 MG PO Daily February 19, 2024 12:00am atorvastatin 20 mg oral tablet (2 sources) HMG-CoA Reductase Inhibitor Start: 01-28-2024 take 20 mg by mouth once daily at bedtime Atorvastatin Active 20 MG PO Daily at bedtime January 28, 2024 12:00am clopidogrel 75 mg oral tablet (2 sources) [id number] Platelet Inhibitor Start: 01-28-2024 take 75 mg by mouth once daily in the morning Clopidogrel Active 75 MG PO Every morning January 28, 2024 12:00am lactulose 667 mg/ml oral solution (4 sources) Osmotic Laxative Start: 02-19-2024 End: 02-19-2024 take 1 mL by mouth twice daily Lactulose Active 30 ML PO Twice daily 1800 February 19, 2024 9:26am Start: 01-28-2024 End: 02-19-2024 take 1 mL by mouth once daily in the morning Lactulose Discontinued 15 ML PO Every morning January 28, 2024 12:00am February 19, 2024 9:15am pantoprazole 40 mg delayed release oral tablet (3 sources) Proton Pump Inhibitor Start: 01-28-2024 End: 02-19-2024 Pantoprazole Active 40 MG PO Daily 30 February 19, 2024 9:26am Take 1 tablet orally 30 minutes before morning meal. Sod Picosulf-Mag Ox-Citric Ac (1 source) Start: 02-19-2024 take 1 dose by mouth once daily in the evening Sod Picosulf-Mag Ox-Citric Ac (Clenpiq) 10 mg-3.5 gram- 12 gram/175 mL solution Active 175 ML PO Daily 175 1 February 19, 2024 12:00am take first dose at 3:00 pm the day before colonoscopy, take second dose at 9:00 pm the day before colonoscopy. sucralfate 1000 mg oral tablet (3 sources) Aluminum Complex Start: 02-19-2024 take 1 g by mouth twice daily Sucralfate Active 1 GM PO Twice daily February 19, 2024 9:14am Start: 01-28-2024 End: 02-19-2024 take 1 g by mouth four times daily Sucralfate Discontinued 1 GM PO Four times daily January 28, 2024 12:00am February 19, 2024 9:15am Completed/Discontinued Medications Medication Drug Class(es) Dates Sig (Normalized) Sig (Original) cetirizine hydrochloride 10 mg oral tablet (2 sources) Histamine-1 Receptor Antagonist Start: 01-28-2024 End: 02-19-2024 take 10 mg by mouth once daily in the morning Cetirizine Discontinued 10 MG PO Every morning January 28, 2024 12:00am February 19, 2024 9:13am Payers Date Payer Category Payer Self-pay 2015 Medicare [id number] 1959 Unknown [id number] 1950 Unknown [id number] 2.16.8 40.1.261484.3.579.2. 1950 Unknown [id number] 2.16.8 40.1.670941.3.579.2. 1950 Unknown [id number] 2.16.8 40.1.085065.3.579.2. 1950 Unknown [id number] 2.16.8 40.1.838285.3.579.2.647 1950 Unknown [id number] 2.16.8 40.1.440223.3.579.2.647 1950 Unknown [id number] 2.16.84 0.1.133503.3.579.2.593 1950 Unknown [id number] 2.16.84 0.1.105235.3.579.2.593 1950 Unknown [id number] 2.16.84 0.1.357562.3.579.2.593 1950 Unknown [id number] 2.16.84 0.1.735373.3.579.2.593 1950 Unknown [id number] 2.16.84 0.1.325387.3.579.2.593 1950 Unknown [id number] 2.16.84 0.1.467066.3.579.2.593 1950 Unknown [id number] 2.16.84 0.1.189540.3.579.2.593 1950 Unknown [id number] 2.16.84 0.1.465098.3.579.2.593 1950 Unknown [id number] 2.16.84 0.1.203182.3.579.2.593 1950 Unknown [id number] 2.16.84 0.1.771759.3.579.2.593 1950 Unknown [id number] 2.16.84 0.1.138309.3.579.2.593 1950 Unknown [id number] 2.16.84 0.1.215154.3.579.2.593 1950 Unknown [id number] 2.16.84 0.1.127117.3.579.2.593 1950 Unknown [id number] 2.16.84 0.1.209976.3.579.2.593 1950 Unknown [id number] 2.16.84 0.1.602445.3.579.2.593 1950 Unknown [id number] 2.16.84 0.1.807791.3.579.2.593 1950 Unknown [id number] 2.16.84 0.1.139182.3.579.2.593 1950 Unknown [id number] 2.16.84 0.1.977895.3.579.2.593 1950 Unknown [id number] 2.16.84 0.1.676556.3.579.2.593 1950 Unknown [id number] 2.16.8 40.1.550443.3.579.2.128 1950 Unknown [id number] 2.16.8 40.1.439590.3.579.2.128 1950 Unknown [id number] 2.16.8 40.1.181568.3.579.2.128 1950 Unknown [id number] 2.16.84 0.1.071344.3.579.2.1259 Medicare [id number] Unknown Unknown [id number] 2.16.8 40.1.685780.3.579.2.531 Plan of Treatment Date Care Activity Detail Author Start: 02-05-2024 [facility] Patient Education Hiatal Hernia (DC) Know your Meds [facility] Work Phone: Problems Active Problems Problem Classification Problem Date Documented Da te Episodic/Chronic Abdominal hernia (3 sources) Diaphragmatic hernia without obstruction or gangrene; 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: [Hiatal hernia] Onset: 10-25-2022 02-19-2024 Episodic Abdominal pain (2 sources) Generalized abdominal pain; 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: [Unspecified abdominal pain] Onset: 10-25-2022 Episodic Acute and unspecified renal [...] unspecified; 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: [Hyperlipidemia, unspecified] Onset: 11-14-2022 Chronic Diverticulosis and diverticulitis (2 sources) Diverticulum of duodenum; 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: [Diverticulosis of small intestine without perforation or abscess without bleeding] 02-19-2024 Chronic Esophageal disorders (1 source) Gastro-esophageal reflux [...] Onset: 01-17-2023 Chronic Other aftercare (2 sources) snf (current) use of aspirin; 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: [FPC (CURRENT) USE OF ASPIRIN] Onset: 11-19-2018 Episodic Other aftercare (1 source) Other correction (current) drug therapy; 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: [OTH FPC CURRENT DRUG THERAPY] Onset: 01-17-2023 Episodic Other [...] Fibromyalgia; 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: [FIBROMYALGIA] Onset: 01-17-2023 Episodic Other gastrointestinal disorders (1 source) Irritable bowel syndrome; 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: [Irritable bowel syndrome without diarrhea] 02-19-2024 Chronic Other gastrointestinal disorders (1 source) Irritable bowel syndrome without diarrhea; 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: [Irritable bowel syndrome] 02-19-2024 Chronic Other hematologic conditions (4 sources) Other specified [...] conditions (not mental disorders or infectious disease) (8 sources) Abnormal result of other cardiovascular function study; 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: [Other specified abnormal findings of blood chemistry] Onset: 11-19-2018 02-19-2024 Episodic Other skin disorders (4 sources) Nonscarring [...] unspecified; 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: [EDEMA UNSPECIFIED] Onset: 10-25-2022 Episodic Residual codes; unclassified (1 source) Pain, unspecified; 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: [Pain, unspecified] Onset: 01-07-2024 Episodic Unclassified (2 sources) ABN STRESS Onset: [...] 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: [DYSARTHRIA AND ANARTHRIA] Onset: 05-26-2022 Episodic Procedures Date Procedure Procedure Detail Performing Clinician Start: 02-05-2024 Esophagogastroduodenoscopy MD Krzysztof Harp Work Phone: Results Test Name Value Interpretation Reference Range Facility US AYESHA DOP LEG LTon 01-16-20 US AYESHA DOP LEG LT EXAMINATION: US [...] VISHNU MARIE Date: 2023-01-15 08:25 Normal [facility] XR ANKLE LT MIN 3 Von [...] GONZALEZ PATEL Date: 2023-01-15 07:28 Normal [facility] VITAMIN B1 (THIAMINE)on Vit. B1, Whole Blood 118.1 nmol/L Normal 66.5-200.0 [facility] Comment on above: Performed By: #### C BC #### [facility] [address] [place] [address] Dr. Ekta Funk BNPon 01-10-2023 Natriuretic peptide B (Bld) [Mass/Vol] 980.0 pg/mL Critically high <=900.0 [facility] Comment on above: Performed By: #### C VDTBH #### [facility] [address] [place] [address] Dr. Ekta Funk CBC AUTO DIFFon 01-10-2023 BASO # 0.1 103/ul Normal 0.0-0.1 [facility] Comment on above: Performed By: #### C MP #### [facility] [address] [place] [address] Dr. Ekta Funk Basophils/100 WBC (Bld) 1.0 % Normal 0.2-2.0 [facility] Comment on above: Performed By: #### C MP #### [facility] [address] [place] [address] Dr. Ekta Funk EO # 0.4 103/ul Normal 0.0-0.7 [facility] Comment on above: Performed By: #### C MP #### [facility] [address] [place] [address] Dr. Ekta Funk Eosinophils/100 WBC (Bld) 3.7 % Normal 0.9-7.0 [facility] Comment on above: Performed By: #### C MP #### [facility] [address] [place] [address] Dr. Ekta Funk Erythrocyte distribution width (RBC) [Ratio] 13.2 % Normal 11.0-15.0 [facility] Comment on above: Performed By: #### C MP #### [facility] [address] [place] [address] Dr. Ekta Funk Hematocrit (Bld) [Volume fraction] 35.1 % Critically low 36.0-48.0 [facility] Comment on above: Performed By: #### C MP #### [facility] [address] [place] [address] Dr. Ekta Funk Hemoglobin (Bld) [Mass/Vol] 11.3 g/dL Critically low 12.0-16.0 [facility] Comment on above: Performed By: #### C MP #### [facility] [address] [place] [address] Dr. Ekta Funk IG # 0.04 10e3/ul Critically high 0.00-0.03 [facility] Comment on above: Performed By: #### C MP #### [facility] [address] [place] [address] Dr. Ekta Funk IG % 0.4 % Normal 0.0-0.5 [facility] Comment on above: Performed By: #### C MP #### [facility] [address] [place] [address] Dr. Ekta Funk LYMPH # 2.0 103/ul Normal 1.2-3.8 [facility] Comment on above: Performed By: #### C MP #### [facility] [address] [place] [address] Dr. Ekta Funk Lymphocytes/100 WBC (Bld) 20.8 % Normal 20.5-60.0 [facility] Comment on above: Performed By: #### C MP #### [facility] [address] [place] [address] Dr. Ekta Funk MANUAL DIFF REQ NO Normal [facility] Comment on above: Performed By: #### C MP #### [facility] [address] [place] [address] Dr. Ekta Funk MCH (RBC) [Entitic mass] 32.3 pg Normal 26.7-34.0 [facility] Comment on above: Performed By: #### C MP #### [facility] [address] [place] [address] Dr. Ekta Funk MCHC (RBC) [Mass/Vol] 32.2 g/dL Normal 29.9-35.2 [facility] Comment on above: Performed By: #### C MP #### [facility] [address] [place] [address] Dr. Ekta Funk MCV (RBC) [Entitic vol] 100.3 fL Critically high 81.0-99.0 [facility] Comment on above: Performed By: #### C MP #### [facility] [address] [place] [address] Dr. Ekta Funk MONO # 0.8 103/ul Normal 0.3-0.8 [facility] Comment on above: Performed By: #### C MP #### [facility] [address] [place] [address] Dr. Ekta Funk Monocytes/100 WBC (Bld) 7.9 % Normal 1.7-12.0 [facility] Comment on above: Performed By: #### C MP #### [facility] [address] [place] [address] Dr. Ekta Funk NEUT # 6.4 103/ul Normal 1.4-6.5 [facility] Comment on above: Performed By: #### C MP #### [facility] [address] [place] [address] Dr. Ekta Funk Neutrophils/100 WBC (Bld) 66.2 % Normal 43.0-75.0 [facility] Comment on above: Performed By: #### C MP #### [facility] [address] [place] [address] Dr. Ekta Funk Platelet mean volume (Bld) [Entitic vol] 9.6 fL Normal 9.5-13.5 [facility] Comment on above: Performed By: #### C MP #### [facility] [address] [place] [address] Dr. Ekta Funk PLT 255 103/ul Normal 150-450 [facility] Comment on above: Performed By: #### C MP #### [facility] [address] [address] [address] Ekta Funk RBC 3.50 106/ul Critically low 4.20-5.40 [facility] Comment on above: Performed By: #### C MP #### [facility] [address] [place] [address] Dr. Ekta Funk WBC 9.7 103/ul Normal 4.0-11.0 [facility] Comment on above: Performed By: #### C MP #### [facility] [address] [place] [address] Dr. Ekta Funk CRPon 01-10-2023 CRP [Mass/Vol] mg/L Normal <=1.0 [facility] Comment on above: Performed By: #### C BC #### [facility] [address] [place] [address] Dr. Ekta Funk FREE THYROXINE INDEX T7on FTI 2.62 Normal 1.30-4.50 [facility] Comment on above: Performed By: #### C BC #### [facility] [address] [place] [address] Dr. Ekta Funk T3U 32.0 % Normal 30.0-39.0 [facility] Comment on above: Performed By: #### C BC #### [facility] [address] [place] [address] Dr. Ekta Funk T4 [Mass/Vol] 8.20 ug/dL Normal 4.80-13.90 [facility] Comment on above: Performed By: #### C BC #### [facility] [address] [place] [address] Dr. Ekta Funk IRONon 01-10-2023 Iron [Mass/Vol] 61.0 ug/dL Normal 50.0-170.0 [facility] Comment on above: Performed By: #### B 12FOL, VITAD, IRON #### [facility] [address] [address] [address] Ekta Funk PROF 14(COMP METB)on 023 Albumin [Mass/Vol] 2.9 g/dL Critically low 3.4-5.0 [facility] Comment on above: Performed By: #### C VDTBH #### [facility] [address] [place] [address] Dr. Ekta Funk Albumin/Globulin [Mass ratio] 0.6 {ratio} Normal [facility] Comment on above: Performed By: #### C VDTBH #### [facility] [address] [place] [address] Dr. Ekta Funk ALP [Catalytic activity/Vol] 101 U/L Normal 46-116 [facility] Comment on above: Performed By: #### C VDTBH #### [facility] [address] [place] [address] Dr. Ekta Funk ALT [Catalytic activity/Vol] 16 U/L Normal 14-59 [facility] Comment on above: Performed By: #### C VDTBH #### [facility] [address] [place] [address] Dr. Ekta Funk Anion gap [Moles/Vol] 14.6 mmol/L Normal [facility] Comment on above: Performed By: #### C VDTBH #### [facility] [address] [place] [address] Dr. Ekta Funk AST [Catalytic activity/Vol] 15 U/L Normal 15-37 [facility] Comment on above: Performed By: #### C VDTBH #### [facility] [address] [place] [address] Dr. Ekta Funk Bilirubin [Mass/Vol] 0.4 mg/dL Normal 0.2-1.0 [facility] Comment on above: Performed By: #### C VDTBH #### [facility] [address] [address] [address] Ekta Funk Calcium [Mass/Vol] 9.2 mg/dL Normal 8.5-10.1 [facility] Comment on above: Performed By: #### C VDTBH #### [facility] [address] [place] [address] Dr. Ekta Funk Chloride [Moles/Vol] 107 mmol/L Normal 98-107 [facility] Comment on above: Performed By: #### C VDTBH #### [facility] [address] [place] [address] Dr. Ekta Funk CO2 [Moles/Vol] 24.4 mmol/L Normal 21.0-32.0 [facility] Comment on above: Performed By: #### C VDTBH #### [facility] [address] [place] [address] Dr. Ekta Funk Creatinine [Mass/Vol] 2.02 mg/dL Critically high 0.55-1.02 [facility] Comment on above: Performed By: #### C VDTBH #### [facility] [address] [place] [address] Dr. Ekta Funk EGFR-AF GEORGIAN 29 mL/min/1.73m2 Critically low >=60 [facility] Comment on above: Performed By: #### C VDTBH #### [facility] [address] [place] [address] Dr. Ekta Funk EGFR-NON AF GEORGIAN 24 mL/min/1.73m2 Critically low >=60 [facility] Comment on above: Performed By: #### C VDTBH #### [facility] [address] [place] [address] Dr. Ekta Funk Globulin (S) [Mass/Vol] 4.5 g/dL Normal [facility] Comment on above: Performed By: #### C VDTBH #### [facility] [address] [place] [address] Dr. Ekta Funk Glucose [Mass/Vol] 103 mg/dL Normal 74-106 [facility] Comment on above: Performed By: #### C VDTBH #### [facility] [address] [place] [address] Dr. Ekta Funk Potassium [Moles/Vol] 5.0 mmol/L Normal 3.5-5.1 [facility] Comment on above: Performed By: #### C VDTBH #### [facility] [address] [place] [address] Dr. Ekta Funk Protein [Mass/Vol] 7.4 g/dL Normal 6.4-8.2 [facility] Comment on above: Performed By: #### C VDTBH #### [facility] [address] [place] [address] Dr. Ekta Funk Sodium [Moles/Vol] 141 mmol/L Normal 136-145 [facility] Comment on above: Performed By: #### C VDTBH #### [facility] [address] [place] [address] Dr. Ekta Funk Urea nitrogen [Mass/Vol] 23.0 mg/dL Critically high 7.0-18.0 [facility] Comment on above: Performed By: #### C VDTBH #### [facility] [address] [place] [address] Dr. Ekta Funk Urea nitrogen/Creatinine [Mass ratio] 11.4 mg/mg Normal [facility] Comment on above: Performed By: #### C VDTBH #### [facility] [address] [place] [address] Dr. Ekta Funk TSHon 01-10-2023 TSH 1.793 uIU/mL Normal 0.358-3.740 [facility] Comment on above: Performed By: #### C VDTBH #### [facility] [address] [place] [address] Dr. Ekta Funk VIT B12 AND FOLATEon 023 Cobalamin (Vitamin B12) [Mass/Vol] 175.0 pg/mL Critically low 193.0-986.0 [facility] Comment on above: Performed By: #### B 12FOL, VITAD, IRON #### [facility] [address] [place] [address] Dr. Ekta Funk FOLATE 10.30 ng/mL Normal 8.60-58.90 [facility] Comment on above: Performed By: #### B 12FOL, VITAD, IRON #### [facility] [address] [place] [address] Dr. Ekta Funk VITAMIN D 25 OHon 01-10-2023 VIT D 25-OH 24.0 ng/mL Normal [facility] Comment on above: Performed By: #### B 12FOL, VITAD, IRON #### [facility] [address] [address] [address] Ekta Funk VIT D RANGES SEE BELOW Normal [facility] Comment on above: Result Comment: <20 ng/mL Vit D deficient 20 - <30 ng/mL Vit D insufficient 30 - 100 ng/mL Vit D sufficient >100 ng/mL Potential Toxicity Performed By: #### B 12FOL, VITAD, IRON #### [facility] [address] [place] [address] Dr. Ekta Funk Office Visiton 12-15-2022 Follow-up visit [id number] Sheila Mac 1950 F Date Provider Department Center 12/15/2022 [id number] RIVERA [facility] No family history on file Level of Service:[id number] [place] OFFICE/OUTPATIENT ESTABLISHED MOD MDM 30-39 MIN Reason for Visit and Comments: Follow-up [857099] - Is here f/u stress test pt states she had Bruises all over both legs symptoms stated a week ago also stated legs are swollen and burning Normal [facility] [place] STRESS/REST MULTIon 12-05 NM STRESS/REST MULTI Patient: SHEILA MAC Exam Date: 12/05/2022 : 1950 Gender:F Ordering : DR KRZYSZTOF HARP . Admission #: [id number] Family : Order #: [id number] CLICK HERE TO VIEW EXAM RADIOLOGY REPORT [...] Marie M.D. on 12/06/2022 at 07:26 Normal [facility] ECHOCARDIO M/2D COMPLETEon 0 11-27-2022 ECHOCARDIO M/2D COMPLETE Patient: SHEILA MAC Exam Date: 11/27/2022 : 1950 Gender:F Ordering : DR KRZYSZTOF HARP . Admission #: [id number] Family : Order #: [id number] CLICK HERE TO VIEW EXAM ECHOCARDIOGRAM REPORT [...] Gaspar M.D. on 11/27/2022 at 14:39 Normal [facility] CBC AUTO DIFFon 11-26-2022 BASO # 0.0 103/ul Normal 0.0-0.1 [facility] Comment on above: Performed By: #### I NSULIN #### [facility] [address] [place] [address] Dr. Ekta Funk Basophils/100 WBC (Bld) 0.6 % Normal 0.2-2.0 [facility] Comment on above: Performed By: #### I NSULIN #### [facility] [address] [place] [address] Dr. Ekta Funk EO # 0.3 103/ul Normal 0.0-0.7 [facility] Comment on above: Performed By: #### I NSULIN #### [facility] [address] [place] [address] Dr. Ekta Funk Eosinophils/100 WBC (Bld) 4.8 % Normal 0.9-7.0 [facility] Comment on above: Performed By: #### I NSULIN #### [facility] [address] [place] [address] Dr. Ekta Funk Erythrocyte distribution width (RBC) [Ratio] 13.3 % Normal 11.0-15.0 [facility] Comment on above: Performed By: #### I NSULIN #### [facility] [address] [place] [address] Dr. Ekta Funk Hematocrit (Bld) [Volume fraction] 29.1 % Critically low 36.0-48.0 [facility] Comment on above: Performed By: #### I NSULIN #### [facility] [address] [place] [address] Dr. Ekta Funk Hemoglobin (Bld) [Mass/Vol] 9.5 g/dL Critically low 12.0-16.0 [facility] Comment on above: Performed By: #### I NSULIN #### [facility] [address] [place] [address] Dr. Ekta Funk IG # 0.07 10e3/ul Critically high 0.00-0.03 [facility] Comment on above: Performed By: #### I NSULIN #### [facility] [address] [place] [address] Dr. Ekta Funk IG % 1.0 % Critically high 0.0-0.5 [facility] Comment on above: Performed By: #### I NSULIN #### [facility] [address] [place] [address] Dr. Ekta Funk LYMPH # 1.2 103/ul Normal 1.2-3.8 [facility] Comment on above: Performed By: #### I NSULIN #### [facility] [address] [place] [address] Dr. Ekta Funk Lymphocytes/100 WBC (Bld) 17.2 % Critically low 20.5-60.0 [facility] Comment on above: Performed By: #### I NSULIN #### [facility] [address] [place] [address] Dr. Ekta Funk MANUAL DIFF REQ NO Normal [facility] Comment on above: Performed By: #### I NSULIN #### [facility] [address] [place] [address] Dr. Ekta Funk MCH (RBC) [Entitic mass] 31.7 pg Normal 26.7-34.0 [facility] Comment on above: Performed By: #### I NSULIN #### [facility] [address] [place] [address] Dr. Ekta Funk MCHC (RBC) [Mass/Vol] 32.6 g/dL Normal 29.9-35.2 [facility] Comment on above: Performed By: #### I NSULIN #### [facility] [address] [place] [address] Dr. Ekta Funk MCV (RBC) [Entitic vol] 97.0 fL Normal 81.0-99.0 [facility] Comment on above: Performed By: #### I NSULIN #### [facility] [address] [place] [address] Dr. Ekta Funk MONO # 0.8 103/ul Normal 0.3-0.8 [facility] Comment on above: Performed By: #### I NSULIN #### [facility] [address] [place] [address] Dr. Ekta Funk Monocytes/100 WBC (Bld) 11.1 % Normal 1.7-12.0 [facility] Comment on above: Performed By: #### I NSULIN #### [facility] [address] [place] [address] Dr. Ekta Funk NEUT # 4.5 103/ul Normal 1.4-6.5 [facility] Comment on above: Performed By: #### I NSULIN #### [facility] [address] [place] [address] Dr. Ekta Funk Neutrophils/100 WBC (Bld) 65.3 % Normal 43.0-75.0 [facility] Comment on above: Performed By: #### I NSULIN #### [facility] [address] [place] [address] Dr. Ekta Funk Platelet mean volume (Bld) [Entitic vol] 9.4 fL Critically low 9.5-13.5 [facility] Comment on above: Performed By: #### I NSULIN #### [facility] [address] [place] [address] Dr. Ekta Funk PLT 263 103/ul Normal 150-450 [facility] Comment on above: Performed By: #### I NSULIN #### [facility] [address] [place] [address] Dr. Ekta Funk RBC 3.00 106/ul Critically low 4.20-5.40 [facility] Comment on above: Performed By: #### I NSULIN #### [facility] [address] [place] [address] Dr. Ekta Funk WBC 6.9 103/ul Normal 4.0-11.0 [facility] Comment on above: Performed By: #### I NSULIN #### [facility] [address] [place] [address] Dr. Ekta Funk PROF 14(COMP METB)on 023 Albumin [Mass/Vol] 2.2 g/dL Critically low 3.4-5.0 [facility] Comment on above: Performed By: #### C MP #### [facility] [address] [place] [address] Dr. Ekta Funk Albumin/Globulin [Mass ratio] 0.6 {ratio} Normal [facility] Comment on above: Performed By: #### C MP #### [facility] [address] [place] [address] Dr. Ekta Funk ALP [Catalytic activity/Vol] 82 U/L Normal 46-116 [facility] Comment on above: Performed By: #### C MP #### [facility] [address] [place] [address] Dr. Ekta Funk ALT [Catalytic activity/Vol] 13 U/L Critically low 14-59 [facility] Comment on above: Performed By: #### C MP #### [facility] [address] [place] [address] Dr. Ekta Funk Anion gap [Moles/Vol] 14.0 mmol/L Normal [facility] Comment on above: Performed By: #### C MP #### [facility] [address] [place] [address] Dr. Ekta Funk AST [Catalytic activity/Vol] 18 U/L Normal 15-37 [facility] Comment on above: Performed By: #### C MP #### [facility] [address] [place] [address] Dr. Ekta Funk Bilirubin [Mass/Vol] 0.4 mg/dL Normal 0.2-1.0 [facility] Comment on above: Performed By: #### C MP #### [facility] [address] [address] [address] Ekta Funk Calcium [Mass/Vol] 8.6 mg/dL Normal 8.5-10.1 [facility] Comment on above: Performed By: #### C MP #### [facility] [address] [address] [address] Ekta Funk Chloride [Moles/Vol] 108 mmol/L Critically high 98-107 [facility] Comment on above: Performed By: #### C MP #### [facility] [address] [place] [address] Dr. Ekta Funk CO2 [Moles/Vol] 19.6 mmol/L Critically low 21.0-32.0 [facility] Comment on above: Performed By: #### C MP #### [facility] [address] [address] [address] Ekta Funk Creatinine [Mass/Vol] 1.70 mg/dL Critically high 0.55-1.02 [facility] Comment on above: Performed By: #### C MP #### [facility] [address] [place] [address] Dr. Ekta Funk EGFR-AF GEORGIAN 36 mL/min/1.73m2 Critically low >=60 [facility] Comment on above: Performed By: #### C MP #### [facility] [address] [address] [address] Ekta Funk EGFR-NON AF GEORGIAN 29 mL/min/1.73m2 Critically low >=60 [facility] Comment on above: Performed By: #### C MP #### [facility] [address] [place] [address] Dr. Ekta Funk Globulin (S) [Mass/Vol] 3.6 g/dL Normal [facility] Comment on above: Performed By: #### C MP #### [facility] [address] [address] [address] Ekta Funk Glucose [Mass/Vol] 103 mg/dL Normal 74-106 [facility] Comment on above: Performed By: #### C MP #### [facility] [address] [place] [address] Dr. Ekta Funk Potassium [Moles/Vol] 4.6 mmol/L Normal 3.5-5.1 [facility] Comment on above: Performed By: #### C MP #### [facility] [address] [place] [address] Dr. Ekta Funk Protein [Mass/Vol] 5.8 g/dL Critically low 6.4-8.2 [facility] Comment on above: Performed By: #### C MP #### [facility] [address] [place] [address] Dr. Ekta Funk Sodium [Moles/Vol] 137 mmol/L Normal 136-145 [facility] Comment on above: Performed By: #### C MP #### [facility] [address] [place] [address] Dr. Ekta Funk Urea nitrogen [Mass/Vol] 26.0 mg/dL Critically high 7.0-18.0 [facility] Comment on above: Performed By: #### C MP #### [facility] [address] [place] [address] Dr. Ekta Funk Urea nitrogen/Creatinine [Mass ratio] 15.3 mg/mg Normal [facility] Comment on above: Performed By: #### C MP #### [facility] [address] [place] [address] Dr. Ekta Funk CBC AUTO DIFFon 11-25-2022 BASO # 0.1 103/ul Normal 0.0-0.1 [facility] Comment on above: Performed By: #### C MP #### [facility] [address] [place] [address] Dr. Ekta Funk BASO # 0.1 103/ul Normal 0.0-0.1 [facility] Comment on above: Performed By: #### C BC #### [facility] [address] [place] [address] Dr. Ekta Funk Basophils/100 WBC (Bld) 0.7 % Normal 0.2-2.0 [facility] Comment on above: Performed By: #### C MP #### [facility] [address] [place] [address] Dr. Ekta Funk Basophils/100 WBC (Bld) 0.7 % Normal 0.2-2.0 [facility] Comment on above: Performed By: #### C BC #### [facility] [address] [place] [address] Dr. Ekta Funk EO # 0.3 103/ul Normal 0.0-0.7 [facility] Comment on above: Performed By: #### C MP #### [facility] [address] [place] [address] Dr. Ekta Funk EO # 0.3 103/ul Normal 0.0-0.7 [facility] Comment on above: Performed By: #### C BC #### [facility] [address] [place] [address] Dr. Ekta Funk Eosinophils/100 WBC (Bld) 3.9 % Normal 0.9-7.0 [facility] Comment on above: Performed By: #### C MP #### [facility] [address] [place] [address] Dr. Ekta Funk Eosinophils/100 WBC (Bld) 3.4 % Normal 0.9-7.0 [facility] Comment on above: Performed By: #### C BC #### [facility] [address] [place] [address] Dr. Ekta uFnk Erythrocyte distribution width (RBC) [Ratio] 13.2 % Normal 11.0-15.0 [facility] Comment on above: Performed By: #### C MP #### [facility] [address] [place] [address] Dr. Ekta Funk Erythrocyte distribution width (RBC) [Ratio] 13.6 % Normal 11.0-15.0 [facility] Comment on above: Performed By: #### C BC #### [facility] [address] [place] [address] Dr. Ekta Funk Hematocrit (Bld) [Volume fraction] 28.0 % Critically low 36.0-48.0 [facility] Comment on above: Performed By: #### C MP #### [facility] [address] [place] [address] Dr. Ekta Funk Hematocrit (Bld) [Volume fraction] 32.1 % Critically low 36.0-48.0 [facility] Comment on above: Performed By: #### C BC #### [facility] [address] [place] [address] Dr. Ekta Funk Hemoglobin (Bld) [Mass/Vol] 9.3 g/dL Critically low 12.0-16.0 [facility] Comment on above: Performed By: #### C MP #### [facility] [address] [place] [address] Dr. Ekta Funk Hemoglobin (Bld) [Mass/Vol] 10.3 g/dL Critically low 12.0-16.0 [facility] Comment on above: Performed By: #### C BC #### [facility] [address] [place] [address] Dr. Ekta Funk IG # 0.08 10e3/ul Critically high 0.00-0.03 [facility] Comment on above: Performed By: #### C MP #### [facility] [address] [place] [address] Dr. Ekta Funk IG # 0.08 10e3/ul Critically high 0.00-0.03 [facility] Comment on above: Performed By: #### C BC #### [facility] [address] [place] [address] Dr. Ekta Funk IG % 1.1 % Critically high 0.0-0.5 [facility] Comment on above: Performed By: #### C MP #### [facility] [address] [place] [address] Dr. Ekta Funk IG % 0.9 % Critically high 0.0-0.5 [facility] Comment on above: Performed By: #### C BC #### [facility] [address] [place] [address] Dr. Ekta Funk LYMPH # 0.9 103/ul Critically low 1.2-3.8 [facility] Comment on above: Performed By: #### C MP #### [facility] [address] [place] [address] Dr. Ekta Funk LYMPH # 0.9 103/ul Critically low 1.2-3.8 [facility] Comment on above: Performed By: #### C BC #### [facility] [address] [place] [address] Dr. Ekta Funk Lymphocytes/100 WBC (Bld) 12.1 % Critically low 20.5-60.0 [facility] Comment on above: Performed By: #### C MP #### [facility] [address] [place] [address] Dr. Ekta Funk Lymphocytes/100 WBC (Bld) 10.7 % Critically low 20.5-60.0 [facility] Comment on above: Performed By: #### C BC #### [facility] [address] [place] [address] Dr. Ekta Funk MANUAL DIFF REQ NO Normal [facility] Comment on above: Performed By: #### C MP #### [facility] [address] [place] [address] Dr. Ekta Funk MANUAL DIFF REQ NO Normal [facility] Comment on above: Performed By: #### C BC #### [facility] [address] [place] [address] Dr. Ekta Funk MCH (RBC) [Entitic mass] 32.0 pg Normal 26.7-34.0 [facility] Comment on above: Performed By: #### C MP #### [facility] [address] [place] [address] Dr. Ekta Funk MCH (RBC) [Entitic mass] 32.2 pg Normal 26.7-34.0 [facility] Comment on above: Performed By: #### C BC #### [facility] [address] [place] [address] Dr. Ekta Funk MCHC (RBC) [Mass/Vol] 33.2 g/dL Normal 29.9-35.2 [facility] Comment on above: Performed By: #### C MP #### [facility] [address] [place] [address] Dr. Ekta Funk MCHC (RBC) [Mass/Vol] 32.1 g/dL Normal 29.9-35.2 [facility] Comment on above: Performed By: #### C BC #### [facility] [address] [place] [address] Dr. Ekta Funk MCV (RBC) [Entitic vol] 96.2 fL Normal 81.0-99.0 [facility] Comment on above: Performed By: #### C MP #### [facility] [address] [place] [address] Dr. Ekta Funk MCV (RBC) [Entitic vol] 100.3 fL Critically high 81.0-99.0 [facility] Comment on above: Performed By: #### C BC #### [facility] [address] [place] [address] Dr. Ekta Funk MONO # 0.7 103/ul Normal 0.3-0.8 [facility] Comment on above: Performed By: #### C MP #### [facility] [address] [place] [address] Dr. Ekta Funk MONO # 0.9 103/ul Critically high 0.3-0.8 [facility] Comment on above: Performed By: #### C BC #### [facility] [address] [place] [address] Dr. Ekta Funk Monocytes/100 WBC (Bld) 9.8 % Normal 1.7-12.0 [facility] Comment on above: Performed By: #### C MP #### [facility] [address] [place] [address] Dr. Ekta Funk Monocytes/100 WBC (Bld) 9.9 % Normal 1.7-12.0 [facility] Comment on above: Performed By: #### C BC #### [facility] [address] [place] [address] Dr. Ekta Funk NEUT # 5.2 103/ul Normal 1.4-6.5 [facility] Comment on above: Performed By: #### C MP #### [facility] [address] [place] [address] Dr. Ekta Funk NEUT # 6.4 103/ul Normal 1.4-6.5 [facility] Comment on above: Performed By: #### C BC #### [facility] [address] [place] [address] Dr. Ekta Funk Neutrophils/100 WBC (Bld) 72.4 % Normal 43.0-75.0 [facility] Comment on above: Performed By: #### C MP #### [facility] [address] [place] [address] Dr. Ekta Funk Neutrophils/100 WBC (Bld) 74.4 % Normal 43.0-75.0 [facility] Comment on above: Performed By: #### C BC #### [facility] [address] [place] [address] Dr. Ekta Funk Platelet mean volume (Bld) [Entitic vol] 9.4 fL Critically low 9.5-13.5 [facility] Comment on above: Performed By: #### C MP #### [facility] [address] [place] [address] Dr. Ekta Funk Platelet mean volume (Bld) [Entitic vol] 9.5 fL Normal 9.5-13.5 [facility] Comment on above: Performed By: #### C BC #### [facility] [address] [place] [address] Dr. Ekta Funk PLT 250 103/ul Normal 150-450 [facility] Comment on above: Performed By: #### C MP #### [facility] [address] [place] [address] Dr. Ekta Funk PLT 267 103/ul Normal 150-450 [facility] Comment on above: Performed By: #### C BC #### [facility] [address] [place] [address] Dr. Ekta Funk RBC 2.91 106/ul Critically low 4.20-5.40 [facility] Comment on above: Performed By: #### C MP #### [facility] [address] [address] [address] Ekta Funk RBC 3.20 106/ul Critically low 4.20-5.40 [facility] Comment on above: Performed By: #### C BC #### [facility] [address] [address] [address] Ekta Funk WBC 7.2 103/ul Normal 4.0-11.0 [facility] Comment on above: Performed By: #### C MP #### [facility] [address] [place] [address] Dr. Ekta Funk WBC 8.6 103/ul Normal 4.0-11.0 [facility] Comment on above: Performed By: #### C BC #### [facility] [address] [place] [address] Dr. Ekta Funk PROF 14(COMP METB)on 023 Albumin [Mass/Vol] 2.1 g/dL Critically low 3.4-5.0 [facility] Comment on above: Performed By: #### C MP #### [facility] [address] [place] [address] Dr. Ekta Funk Albumin/Globulin [Mass ratio] 0.6 {ratio} Normal [facility] Comment on above: Performed By: #### C MP #### [facility] [address] [place] [address] Dr. Ekta Funk ALP [Catalytic activity/Vol] 68 U/L Normal 46-116 [facility] Comment on above: Performed By: #### C MP #### [facility] [address] [place] [address] Dr. Ekta Funk ALT [Catalytic activity/Vol] 14 U/L Normal 14-59 [facility] Comment on above: Performed By: #### C MP #### [facility] [address] [place] [address] Dr. Ekta Funk Anion gap [Moles/Vol] 12.9 mmol/L Normal [facility] Comment on above: Performed By: #### C MP #### [facility] [address] [address] [address] Ekta Funk AST [Catalytic activity/Vol] 14 U/L Critically low 15-37 [facility] Comment on above: Performed By: #### C MP #### [facility] [address] [address] [address] Ekta Funk Bilirubin [Mass/Vol] 0.3 mg/dL Normal 0.2-1.0 [facility] Comment on above: Performed By: #### C MP #### [facility] [address] [address] [address] Ekta Funk Calcium [Mass/Vol] 8.3 mg/dL Critically low 8.5-10.1 [facility] Comment on above: Performed By: #### C MP #### [facility] [address] [address] [address] Ekta Funk Chloride [Moles/Vol] 109 mmol/L Critically high 98-107 [facility] Comment on above: Performed By: #### C MP #### [facility] [address] [address] [address] Ekta Funk CO2 [Moles/Vol] 19.3 mmol/L Critically low 21.0-32.0 [facility] Comment on above: Performed By: #### C MP #### [facility] [address] [address] [address] Ekta Funk Creatinine [Mass/Vol] 1.54 mg/dL Critically high 0.55-1.02 [facility] Comment on above: Performed By: #### C MP #### [facility] [address] [address] [address] Ekta Funk EGFR-AF GEORGIAN 40 mL/min/1.73m2 Critically low >=60 [facility] Comment on above: Performed By: #### C MP #### [facility] [address] [address] [address] Ekta Funk EGFR-NON AF GEORGIAN 33 mL/min/1.73m2 Critically low >=60 [facility] Comment on above: Performed By: #### C MP #### [facility] [address] [address] [address] Ekta Funk Globulin (S) [Mass/Vol] 3.7 g/dL Normal [facility] Comment on above: Performed By: #### C MP #### [facility] [address] [address] [address] Ekta Funk Glucose [Mass/Vol] 117 mg/dL Critically high 74-[address] [facility] Comment on above: Performed By: #### C MP #### [facility] [address] [address] [address] Ekta Funk Potassium [Moles/Vol] 4.2 mmol/L Normal 3.5-5.1 [facility] Comment on above: Performed By: #### C MP #### [facility] [address] [place] [address] Dr. Ekta Funk Protein [Mass/Vol] 5.8 g/dL Critically low 6.4-8.2 [facility] Comment on above: Performed By: #### C MP #### [facility] [address] [place] [address] Dr. Ekta Funk Sodium [Moles/Vol] 137 mmol/L Normal 136-145 [facility] Comment on above: Performed By: #### C MP #### [facility] [address] [place] [address] Dr. Ekta Funk Urea nitrogen [Mass/Vol] 27.0 mg/dL Critically high 7.0-18.0 [facility] Comment on above: Performed By: #### C MP #### [facility] [address] [place] [address] Dr. Ekta Funk Urea nitrogen/Creatinine [Mass ratio] 17.5 mg/mg Normal [facility] Comment on above: Performed By: #### C MP #### [facility] [address] [place] [address] Dr. Ekta Funk AMMONIAon 11-24-2022 Ammonia (P) [Moles/Vol] 13 umol/L Normal 11-32 [facility] Comment on above: Performed By: #### C VDTB #### [facility] [address] [address] [address] Ekta Funk CBC AUTO DIFFon 11-24-2022 BASO # 0.0 103/ul Normal 0.0-0.1 [facility] Comment on above: Performed By: #### C MP #### [facility] [address] [address] [address] Ekta Funk Basophils/100 WBC (Bld) 0.4 % Normal 0.2-2.0 [facility] Comment on above: Performed By: #### C MP #### [facility] [facility] [address] [address] [address] Ekta Funk EO # 0.4 103/ul Normal 0.0-0.7 [facility] Comment on above: Performed By: #### C MP #### [facility] [address] [place] [address] Dr. Ekta Funk Eosinophils/100 WBC (Bld) 3.8 % Normal 0.9-7.0 [facility] Comment on above: Performed By: #### C MP #### [facility] [address] [place] [address] Dr. Ekta Funk Erythrocyte distribution width (RBC) [Ratio] 13.2 % Normal 11.0-15.0 [facility] Comment on above: Performed By: #### C MP #### [facility] [address] [place] [address] Dr. Ekta Funk Hematocrit (Bld) [Volume fraction] 34.0 % Critically low 36.0-48.0 [facility] Comment on above: Performed By: #### C MP #### [facility] [address] [place] [address] Dr. Ekta Funk Hemoglobin (Bld) [Mass/Vol] 11.5 g/dL Critically low 12.0-16.0 [facility] Comment on above: Performed By: #### C MP #### [facility] [address] [place] [address] Dr. Ekta Funk IG # 0.11 10e3/ul Critically high 0.00-0.03 [facility] Comment on above: Performed By: #### C MP #### [facility] [address] [address] [address] Ekta Funk IG % 1.2 % Critically high 0.0-0.5 [facility] Comment on above: Performed By: #### C MP #### [facility] [address] [address] [address] Ekta Funk LYMPH # 1.4 103/ul Normal 1.2-3.8 [facility] Comment on above: Performed By: #### C MP #### [facility] [address] [place] [address] Dr. Ekta Funk Lymphocytes/100 WBC (Bld) 14.9 % Critically low 20.5-60.0 [facility] Comment on above: Performed By: #### C MP #### [facility] [address] [place] [address] Dr. Ekta Funk MANUAL DIFF REQ NO Normal [facility] Comment on above: Performed By: #### C MP #### [facility] [address] [place] [address] Dr. Ekta Funk MCH (RBC) [Entitic mass] 32.5 pg Normal 26.7-34.0 [facility] Comment on above: Performed By: #### C MP #### [facility] [address] [place] [address] Dr. Ekta Funk MCHC (RBC) [Mass/Vol] 33.8 g/dL Normal 29.9-35.2 [facility] Comment on above: Performed By: #### C MP #### [facility] [address] [place] [address] Dr. Ekta Funk MCV (RBC) [Entitic vol] 96.0 fL Normal 81.0-99.0 [facility] Comment on above: Performed By: #### C MP #### [facility] [address] [place] [address] Dr. Ekta Funk MONO # 0.9 103/ul Critically high 0.3-0.8 [facility] Comment on above: Performed By: #### C MP #### [facility] [address] [address] [address] Ekta Funk Monocytes/100 WBC (Bld) 9.7 % Normal 1.7-12.0 [facility] Comment on above: Performed By: #### C MP #### [facility] [address] [place] [address] Dr. Ekta Funk NEUT # 6.4 103/ul Normal 1.4-6.5 [facility] Comment on above: Performed By: #### C MP #### [facility] [address] [place] [address] Dr. Ekta Funk Neutrophils/100 WBC (Bld) 70.0 % Normal 43.0-75.0 [facility] Comment on above: Performed By: #### C MP #### [facility] [address] [place] [address] Dr. Ekta Funk Platelet mean volume (Bld) [Entitic vol] 9.3 fL Critically low 9.5-13.5 [facility] Comment on above: Performed By: #### C MP #### [facility] [address] [place] [address] Dr. Ekta Funk PLT 308 103/ul Normal 150-450 [facility] Comment on above: Performed By: #### C MP #### [facility] [address] [place] [address] Dr. Ekta Funk RBC 3.54 106/ul Critically low 4.20-5.40 [facility] Comment on above: Performed By: #### C MP #### [facility] [address] [place] [address] Dr. Ekta Funk WBC 9.1 103/ul Normal 4.0-11.0 [facility] Comment on above: Performed By: #### C MP #### [facility] [address] [place] [address] Dr. Ekta Funk CPKon 11-24-2022 CK [Catalytic activity/Vol] 21 U/L Critically low 26-192 [facility] Comment on above: Performed By: #### B 12FOL, VITAD, IRON #### [facility] [address] [address] [address] STROKE HEAD WOon [...] by: VANESSA PARADA Date: 2022-11-24 11:09 Normal [facility] CTA HEAD WO W CONon 11-25-19 [...] VISHNU MARIE Date: 2022-11-24 12:41 Normal [facility] CULTURE URINEon 11-24-2022 CULTURE URINE Culture Observations : NO GROWTH. Normal [facility] Comment on above: Performed By: #### I NSULIN #### [facility] [address] [address] [address] Ekta Funk Covid-19 PCR (CVDTB)on 11-08 SARS-CoV-2 (COVID-19) RNA GANESH+probe Ql (Unsp spec) Not detected Normal NOT DETECTED [facility] Comment on above: Result Comment: When [...] for this test is supported by the [employer] of [employer] and Human Service's declaration that [...] used). Performed By: #### C VDTBH #### [facility] [address] [place] [address] Dr. Ekta Funk ER URINE PROFILEon 3 Bilirubin Ql (U) Negative Normal NEGATIVE [facility] Comment on above: Performed By: #### C BC #### [facility] [address] [place] [address] Dr. Ekta Funk Clarity (U) CLEAR Normal CLEAR [facility] Comment on above: Performed By: #### C BC #### [facility] [address] [place] [address] Dr. Ekta Funk Color (U) LT. YELLOW Normal YELLOW [facility] Comment on above: Performed By: #### C BC #### [facility] [address] [place] [address] Dr. Ekta COLÓN A micrscopic examination will be performed if indicated. Normal [facility] Comment on above: Performed By: #### C BC #### [facility] [address] [place] [address] Dr. Ekta Funk Glucose Ql (U) Negative Normal NEGATIVE [facility] Comment on above: Performed By: #### C BC #### [facility] [address] [place] [address] Dr. Ekta Fnuk Hemoglobin Ql (U) Negative Normal NEGATIVE [facility] Comment on above: Performed By: #### C BC #### [facility] [address] [place] [address] Dr. Ekta Funk Ketones Ql (U) Negative Normal NEGATIVE [facility] Comment on above: Performed By: #### C BC #### [facility] [address] [address] [address] Ekta Funk LEUKOCYTES Negative Normal NEGATIVE [facility] Comment on above: Performed By: #### C BC #### [facility] [address] [address] [address] Ekta Funk Nitrite Ql (U) Negative Normal NEGATIVE [facility] Comment on above: Performed By: #### C BC #### [facility] [address] [address] [address] Ekta Funk pH (U) 5.5 [pH] Normal 5-9 [facility] Comment on above: Performed By: #### C BC #### [facility] [address] [place] [address] Dr. Ekta Funk SPEC GRAVITY 1.020 Normal 1.005-<=1.025 [facility] Comment on above: Performed By: #### C BC #### [facility] [address] [place] [address] Dr. Ekta Funk UA PROTEIN Negative Normal NEGATIVE/ TRACE [facility] Comment on above: Performed By: #### C BC #### [facility] [address] [place] [address] Dr. Ekta Funk UR MICRO IND NOT INDICATED Normal [facility] Comment on above: Performed By: #### C BC #### [facility] [address] [place] [address] Dr. Ekta Funk Urobilinogen Qn (U) 0.2 {Ivan'U}/dL Normal 0.2 - 1. 0 [facility] Comment on above: Performed By: #### C BC #### [facility] [address] [place] [address] Dr. Ekta Funk GLYCOHEMOGLOBIN A1Con 2022 ADA RECOMMENDATION SEE BELOW Normal [facility] Comment on above: Result Comment: ADA RECOMMENDED LIMIT 4.0 - 6.0 ADA THERAPEUTIC TARGET < 7.0 ACTION SUGGESTED > 7.0 Performed By: #### B 12FOL, VITAD, IRON #### [facility] [address] [address] [address] Ekta Funk Glucose [Mass/Vol] 143 mg/dL Normal [facility] Comment on above: Performed By: #### B 12FOL, VITAD, IRON #### [facility] [address] [place] [address] Dr. Ekta Funk HbA1c (Bld) [Mass fraction] 6.6 % Critically high 4.5-6.2 [facility] Comment on above: Performed By: #### B 12FOL, VITAD, IRON #### [facility] [address] [address] [address] Ekta Funk LACTATE/LACTIC ACIDon 2022 Lactate [Moles/Vol] 2.1 mmol/L Critically high 0.4-2.0 [facility] Comment on above: Performed By: #### B 12FOL, VITAD, IRON #### [facility] [address] [address] [address] Ekta Funk Lactate [Moles/Vol] 1.6 mmol/L Normal 0.4-2.0 [facility] Comment on above: Performed By: #### C MP #### [facility] [address] [place] [address] Dr. Ekta Funk LIPASEon 11-24-2022 Lipase [Catalytic activity/Vol] 165.0 U/L Normal 73.0-393.0 [facility] Comment on above: Performed By: #### B 12FOL, VITAD, IRON #### [facility] [address] [address] [address] Ekta Funk LIPID PROFILEon 11-24-2022 CHOL-HDL RATIO NORM SEE BELOW Normal [facility] Comment on above: Result Comment: 3.3 - 4.4 LOW RISK 4.4 - 7.1 AVERAGE RISK 7.1 - 11.0 MODERATE RISK >11.0 HIGH RISK Performed By: #### B 12FOL, VITAD, IRON #### [facility] [address] [place] [address] Dr. Ekta Funk Cholesterol [Mass/Vol] 248 mg/dL Critically high <=200 [facility] Comment on above: Performed By: #### B 12FOL, VITAD, IRON #### [facility] [address] [address] [address] Ekta Funk Cholesterol in HDL [Mass/Vol] 58 mg/dL Normal 40-60 [facility] Comment on above: Performed By: #### B 12FOL, VITAD, IRON #### [facility] [address] [address] [address] Ekta Funk Cholesterol in LDL [Mass/Vol] 165.6 mg/dL Normal [facility] Comment on above: Performed By: #### B 12FOL, VITAD, IRON #### [facility] [address] [address] [address] Ekta Funk Cholesterol.total/Ch olesterol in HDL [Mass ratio] 4.3 {ratio} Normal [facility] Comment on above: Performed By: #### B 12FOL, VITAD, IRON #### [facility] [address] [address] [address] Ekta Funk HDL NORMAL > or = 60 mg/dl - LO W CARDIOVASCULAR RISK <40 mg/dl - HIGH CARDIOVASCULAR RISK Normal [facility] Comment on above: Performed By: #### B 12FOL, VITAD, IRON #### [facility] [address] [address] [address] Ekta Funk LDL CALC NORMAL SEE BELOW Normal [facility] Comment on above: Result Comment: <100 mg/dl OPTIMAL 100 - 129 mg/dl NEAR OR ABOVE OPTIMAL 130 - 159 mg/dl BORDERLINE HIGH 160 - 189 mg/dl HIGH >190 mg/dl VERY HIGH Performed By: #### B 12FOL, VITAD, IRON #### [facility] [address] [address] [address] Ekta Funk Triglyceride [Mass/Vol] 122 mg/dL Normal <=150 [facility] Comment on above: Performed By: #### B 12FOL, VITAD, IRON #### [facility] [address] [address] [address] Ekta Funk VLDL CALC 24.4 mg/dL Normal [facility] Comment on above: Performed By: #### B 12FOL, VITAD, IRON #### [facility] [address] [place], [place] [address] Dr. Ekta Funk MRI BRAIN WO CONon 3 MRI BRAIN WO CON MRI BRAIN WO [...] RAVEN ELAINE Date: 2022-11-24 19:35 Normal [facility] PROF 14(COMP METB)on 023 Albumin [Mass/Vol] 2.7 g/dL Critically low 3.4-5.0 [facility] Comment on above: Performed By: #### B 12FOL, VITAD, IRON #### [facility] [address] [place], [place] [address] Dr. Ekta Funk Albumin/Globulin [Mass ratio] 0.6 {ratio} Normal [facility] Comment on above: Performed By: #### B 12FOL, VITAD, IRON #### [facility] [address] [place], [place] [address] Dr. Ekta Funk ALP [Catalytic activity/Vol] 85 U/L Normal 46-116 [facility] Comment on above: Performed By: #### B 12FOL, VITAD, IRON #### [facility] [address] [place] [address] Dr. Ekta Funk ALT [Catalytic activity/Vol] 18 U/L Normal 14-59 [facility] Comment on above: Performed By: #### B 12FOL, VITAD, IRON #### [facility] [address] [place] [address] Dr. Ekta Funk Anion gap [Moles/Vol] 18.9 mmol/L Normal [facility] Comment on above: Performed By: #### B 12FOL, VITAD, IRON #### [facility] [address] [place] [address] Dr. Ekta Funk AST [Catalytic activity/Vol] 16 U/L Normal 15-37 [facility] Comment on above: Performed By: #### B 12FOL, VITAD, IRON #### [facility] [address] [place] [address] Dr. Ekta Funk Bilirubin [Mass/Vol] 0.4 mg/dL Normal 0.2-1.0 [facility] Comment on above: Performed By: #### B 12FOL, VITAD, IRON #### [facility] [address] [place] [address] Dr. Ekta Funk Calcium [Mass/Vol] 9.5 mg/dL Normal 8.5-10.1 [facility] Comment on above: Performed By: #### B 12FOL, VITAD, IRON #### [facility] [address] [place] [address] Dr. Ekta Funk Chloride [Moles/Vol] 108 mmol/L Critically high 98-107 [facility] Comment on above: Performed By: #### B 12FOL, VITAD, IRON #### [facility] [address] [place] [address] Dr. Ekta Funk CO2 [Moles/Vol] 21.1 mmol/L Normal 21.0-32.0 [facility] Comment on above: Performed By: #### B 12FOL, VITAD, IRON #### [facility] [address] [place] [address] Dr. Ekta Funk Creatinine [Mass/Vol] 2.08 mg/dL Critically high 0.55-1.02 [facility] Comment on above: Performed By: #### B 12FOL, VITAD, IRON #### [facility] [address] [place] [address] Dr. Ekta Funk EGFR-AF GEORGIAN 28 mL/min/1.73m2 Critically low >=60 [facility] Comment on above: Performed By: #### B 12FOL, VITAD, IRON #### [facility] [address] [place] [address] Dr. Ekta Funk EGFR-NON AF GEORGIAN 23 mL/min/1.73m2 Critically low >=60 [facility] Comment on above: Performed By: #### B 12FOL, VITAD, IRON #### [facility] [address] [place] [address] Dr. Ekta Funk Globulin (S) [Mass/Vol] 4.6 g/dL Normal [facility] Comment on above: Performed By: #### B 12FOL, VITAD, IRON #### [facility] [address] [place] [address] Dr. Ekta uFnk Glucose [Mass/Vol] 119 mg/dL Critically high 74-[address] [facility] Comment on above: Performed By: #### B 12FOL, VITAD, IRON #### [facility] [address] [place] [address] Dr. Ekta Funk Potassium [Moles/Vol] 5.0 mmol/L Normal 3.5-5.1 [facility] Comment on above: Performed By: #### B 12FOL, VITAD, IRON #### [facility] [address] [place] [address] Dr. Ekta Funk Protein [Mass/Vol] 7.3 g/dL Normal 6.4-8.2 [facility] Comment on above: Performed By: #### B 12FOL, VITAD, IRON #### [facility] [address] [address] [address] Ekta Funk Sodium [Moles/Vol] 143 mmol/L Normal 136-145 [facility] Comment on above: Performed By: #### B 12FOL, VITAD, IRON #### [facility] [address] [place] [address] Dr. Ekta Funk Urea nitrogen [Mass/Vol] 37.0 mg/dL Critically high 7.0-18.0 [facility] Comment on above: Performed By: #### B 12FOL, VITAD, IRON #### [facility] [address] [address] [address] Ekta Funk Urea nitrogen/Creatinine [Mass ratio] 17.8 mg/mg Normal [facility] Comment on above: Performed By: #### B 12FOL, VITAD, IRON #### [facility] [address] [place] [address] Dr. Ekta Funk TROPONIN, HIGH SENSITIVITYon 11-24-2022 HSTROP 14.1 pg/mL Normal 4.0-51.3 [facility] Comment on above: Result Comment: CUT- OFF POINTS HAVE BEEN ESTABLISHED BASED ON THE FOURTH UNIVERSAL DEFINITIONS OF MYOCARDIAL INFARCTION. THE UPPER REFERENCE LIMIT (URL) OF TROPONIN, DEFINED THE 99TH PERCENTILE OF cTnI DISTRIBUTION IN A REFERENCE POPULATION, HAS BEEN CONFIRMED THE DECISION THRESHOLD FOR [place] DIAGNOSIS. Performed By: #### B 12FOL, VITAD, IRON #### [facility] [address] [place] [address] Dr. Ekta Funk TSHon 11-24-2022 TSH 1.184 uIU/mL Normal 0.358-3.740 [facility] Comment on above: Performed By: #### B 12FOL, VITAD, IRON #### [facility] [address] [place] [address] Dr. Ekta Funk XR CHEST 1 Von [...] NATALIIA TATE Date: 2022-11-24 11:00 Normal [facility] BNPon 11-13-2022 Natriuretic peptide B (Bld) [Mass/Vol] 565.0 pg/mL Normal <=900.0 [facility] Comment on above: Performed By: #### I NSULIN #### [facility] [address] [place] [address] Dr. Ekta Funk CBC AUTO DIFFon 11-13-2022 BASO # 0.1 103/ul Normal 0.0-0.1 [facility] Comment on above: Performed By: #### C BC #### [facility] [address] [place] [address] Dr. Ekta Funk Basophils/100 WBC (Bld) 0.6 % Normal 0.2-2.0 [facility] Comment on above: Performed By: #### C BC #### [facility] [address] [place] [address] Dr. Ekta Funk EO # 0.4 103/ul Normal 0.0-0.7 [facility] Comment on above: Performed By: #### C BC #### [facility] [address] [place] [address] Dr. Ekta Funk Eosinophils/100 WBC (Bld) 3.7 % Normal 0.9-7.0 [facility] Comment on above: Performed By: #### C BC #### [facility] [address] [place] [address] Dr. Ekta Funk Erythrocyte distribution width (RBC) [Ratio] 13.2 % Normal 11.0-15.0 [facility] Comment on above: Performed By: #### C BC #### [facility] [address] [place] [address] Dr. Ekta Funk Hematocrit (Bld) [Volume fraction] 36.7 % Normal 36.0-48.0 [facility] Comment on above: Performed By: #### C BC #### [facility] [address] [place] [address] Dr. Ekta Funk Hemoglobin (Bld) [Mass/Vol] 12.4 g/dL Normal 12.0-16.0 [facility] Comment on above: Performed By: #### C BC #### [facility] [address] [place] [address] Dr. Ekta Funk IG # 0.10 10e3/ul Critically high 0.00-0.03 [facility] Comment on above: Performed By: #### C BC #### [facility] [address] [place] [address] Dr. Ekta Funk IG % 1.0 % Critically high 0.0-0.5 [facility] Comment on above: Performed By: #### C BC #### [facility] [address] [place] [address] Dr. Ekta Funk LYMPH # 1.5 103/ul Normal 1.2-3.8 [facility] Comment on above: Performed By: #### C BC #### [facility] [address] [place] [address] Dr. Ekta Funk Lymphocytes/100 WBC (Bld) 14.9 % Critically low 20.5-60.0 [facility] Comment on above: Performed By: #### C BC #### [facility] [address] [place] [address] Dr. Ekta Funk MANUAL DIFF REQ NO Normal [facility] Comment on above: Performed By: #### C BC #### [facility] [address] [place] [address] Dr. Ekta Funk MCH (RBC) [Entitic mass] 32.8 pg Normal 26.7-34.0 [facility] Comment on above: Performed By: #### C BC #### [facility] [address] [place] [address] Dr. Ekta Funk MCHC (RBC) [Mass/Vol] 33.8 g/dL Normal 29.9-35.2 [facility] Comment on above: Performed By: #### C BC #### [facility] [address] [address] [address] Ekta Funk MCV (RBC) [Entitic vol] 97.1 fL Normal 81.0-99.0 [facility] Comment on above: Performed By: #### C BC #### [facility] [address] [address] [address] Ekta Funk MONO # 0.8 103/ul Normal 0.3-0.8 [facility] Comment on above: Performed By: #### C BC #### [facility] [address] [address] [address] Ekat Funk Monocytes/100 WBC (Bld) 7.7 % Normal 1.7-12.0 [facility] Comment on above: Performed By: #### C BC #### [facility] [address] [address] [address] Ekta Funk NEUT # 7.3 103/ul Critically high 1.4-6.5 [facility] Comment on above: Performed By: #### C BC #### [facility] [address] [address] [address] Ekta Funk Neutrophils/100 WBC (Bld) 72.1 % Normal 43.0-75.0 [facility] Comment on above: Performed By: #### C BC #### [facility] [address] [address] [address] Ekta Funk Platelet mean volume (Bld) [Entitic vol] 9.4 fL Critically low 9.5-13.5 [facility] Comment on above: Performed By: #### C BC #### [facility] [address] [address] [address] Ekta Funk PLT 251 103/ul Normal 150-450 [facility] Comment on above: Performed By: #### C BC #### [facility] [address] [address] [address] Ekta Funk RBC 3.78 106/ul Critically low 4.20-5.40 [facility] Comment on above: Performed By: #### C BC #### [facility] [address] [address] [address] Ekta Funk WBC 10.1 103/ul Normal 4.0-11.0 [facility] Comment on above: Performed By: #### C BC #### [facility] [address] [address] [address] Ekta Funk FREE THYROXINE INDEX T7on FTI 2.73 Normal 1.30-4.50 [facility] Comment on above: Performed By: #### I NSULIN #### [facility] [address] [place] [address] Dr. Ekta Funk T3U 35.0 % Normal 30.0-39.0 [facility] Comment on above: Performed By: #### I NSULIN #### [facility] [address] [place] [address] Dr. Ekta Funk T4 [Mass/Vol] 7.80 ug/dL Normal 4.80-13.90 [facility] Comment on above: Performed By: #### I NSULIN #### [facility] [address] [place] [address] Dr. Ekta Funk GLYCOHEMOGLOBIN A1Con 2022 ADA RECOMMENDATION SEE BELOW Normal [facility] Comment on above: Result Comment: ADA RECOMMENDED LIMIT 4.0 - 6.0 ADA THERAPEUTIC TARGET < 7.0 ACTION SUGGESTED > 7.0 Performed By: #### B 12FOL, VITAD, IRON #### [facility] [address] [address] [address] Ekta Funk Glucose [Mass/Vol] 134 mg/dL Normal [facility] Comment on above: Performed By: #### B 12FOL, VITAD, IRON #### [facility] [address] [place] [address] Dr. Ekta Funk HbA1c (Bld) [Mass fraction] 6.3 % Critically high 4.5-6.2 [facility] Comment on above: Performed By: #### B 12FOL, VITAD, IRON #### [facility] [address] [place] [address] Dr. Ekta Funk IRONon 11-13-2022 Iron [Mass/Vol] 55.0 ug/dL Normal 50.0-170.0 [facility] Comment on above: Performed By: #### B 12FOL, VITAD, IRON #### [facility] [address] [address] [address] Ekta Funk LIPID PROFILEon 11-13-2022 CHOL-HDL RATIO NORM SEE BELOW Normal [facility] Comment on above: Result Comment: 3.3 - 4.4 LOW RISK 4.4 - 7.1 AVERAGE RISK 7.1 - 11.0 MODERATE RISK >11.0 HIGH RISK Performed By: #### I NSULIN #### [facility] [address] [address] [address] Ekta Funk Cholesterol [Mass/Vol] 294 mg/dL Critically high <=200 [facility] Comment on above: Performed By: #### I NSULIN #### [facility] [address] [address] [address] Ekta Funk Cholesterol in HDL [Mass/Vol] 64 mg/dL Critically high 40-60 [facility] Comment on above: Performed By: #### I NSULIN #### [facility] [address] [address] [address] Ekta Funk Cholesterol in LDL [Mass/Vol] 197.2 mg/dL Normal [facility] Comment on above: Performed By: #### I NSULIN #### [facility] [address] [address] [address] Ekta Funk Cholesterol.total/Ch olesterol in HDL [Mass ratio] 4.6 {ratio} Normal [facility] Comment on above: Performed By: #### I NSULIN #### [facility] [address] [address] [address] Ekta Funk HDL NORMAL > or = 60 mg/dl - LO W CARDIOVASCULAR RISK <40 mg/dl - HIGH CARDIOVASCULAR RISK Normal [facility] Comment on above: Performed By: #### I NSULIN #### [facility] [address] [address] [address] Ekta Funk LDL CALC NORMAL SEE BELOW Normal [facility] Comment on above: Result Comment: <100 mg/dl OPTIMAL 100 - 129 mg/dl NEAR OR ABOVE OPTIMAL 130 - 159 mg/dl BORDERLINE HIGH 160 - 189 mg/dl HIGH >190 mg/dl VERY HIGH Performed By: #### I NSULIN #### [facility] [address] [address] [address] Ekta Funk Triglyceride [Mass/Vol] 164 mg/dL Critically high <=150 [facility] Comment on above: Performed By: #### I NSULIN #### [facility] [address] [address] [address] Ekta Funk VLDL CALC 32.8 mg/dL Normal [facility] Comment on above: Performed By: #### I NSULIN #### [facility] [address] [place] [address] Dr. Ekta Funk PROF 14(COMP METB)on 023 Albumin [Mass/Vol] 3.0 g/dL Critically low 3.4-5.0 [facility] Comment on above: Performed By: #### I NSULIN #### [facility] [address] [address] [address] Ekta Funk Albumin/Globulin [Mass ratio] 0.6 {ratio} Normal [facility] Comment on above: Performed By: #### I NSULIN #### [facility] [address] [place] [address] Dr. Ekta Funk ALP [Catalytic activity/Vol] 92 U/L Normal 46-116 [facility] Comment on above: Performed By: #### I NSULIN #### [facility] [address] [address] [address] Ekta Funk ALT [Catalytic activity/Vol] 26 U/L Normal 14-59 [facility] Comment on above: Performed By: #### I NSULIN #### [facility] [address] [address] [address] Ekta Funk Anion gap [Moles/Vol] 16.2 mmol/L Normal [facility] Comment on above: Performed By: #### I NSULIN #### [facility] [address] [address] [address] Ekta Funk AST [Catalytic activity/Vol] 16 U/L Normal 15-37 [facility] Comment on above: Performed By: #### I NSULIN #### [facility] [address] [address] [address] Ekta Funk Bilirubin [Mass/Vol] 0.5 mg/dL Normal 0.2-1.0 [facility] Comment on above: Performed By: #### I NSULIN #### [facility] [address] [address] [address] Ekta Funk Calcium [Mass/Vol] 9.7 mg/dL Normal 8.5-10.1 [facility] Comment on above: Performed By: #### I NSULIN #### [facility] [address] [address] [address] Ekta Funk Chloride [Moles/Vol] 105 mmol/L Normal 98-107 [facility] Comment on above: Performed By: #### I NSULIN #### [facility] [address] [address] [address] Ekta Funk CO2 [Moles/Vol] 24.9 mmol/L Normal 21.0-32.0 [facility] Comment on above: Performed By: #### I NSULIN #### [facility] [address] [address] [address] Ekta Funk Creatinine [Mass/Vol] 2.18 mg/dL Critically high 0.55-1.02 [facility] Comment on above: Performed By: #### I NSULIN #### [facility] [address] [address] [address] Ekta Funk EGFR-AF GEORGIAN 27 mL/min/1.73m2 Critically low >=60 [facility] Comment on above: Performed By: #### I NSULIN #### [facility] [address] [address] [address] Ekta Funk EGFR-NON AF GEORGIAN 22 mL/min/1.73m2 Critically low >=60 [facility] Comment on above: Performed By: #### I NSULIN #### [facility] [address] [address] [address] Ekta Funk Globulin (S) [Mass/Vol] 4.7 g/dL Normal [facility] Comment on above: Performed By: #### I NSULIN #### [facility] [address] [address] [address] Ekta Funk Glucose [Mass/Vol] 114 mg/dL Critically high 74-106 [facility] Comment on above: Performed By: #### I NSULIN #### [facility] [address] [address] [address] Ekta Funk Potassium [Moles/Vol] 5.1 mmol/L Normal 3.5-5.1 [facility] Comment on above: Performed By: #### I NSULIN #### [facility] [address] [address] [address] Ekta Funk Protein [Mass/Vol] 7.7 g/dL Normal 6.4-8.2 [facility] Comment on above: Performed By: #### I NSULIN #### [facility] [address] [address] [address] Ekta Funk Sodium [Moles/Vol] 141 mmol/L Normal 136-145 [facility] Comment on above: Performed By: #### I NSULIN #### [facility] [address] [address] [address] Ekta Funk Urea nitrogen [Mass/Vol] 51.0 mg/dL Critically high 7.0-18.0 [facility] Comment on above: Performed By: #### I NSULIN #### [facility] [address] [address] [address] Ekta Funk Urea nitrogen/Creatinine [Mass ratio] 23.4 mg/mg Normal [facility] Comment on above: Performed By: #### I NSULIN #### [facility] [address] [address] [address] Ekta Funk TSHon 11-13-2022 TSH 0.935 uIU/mL Normal 0.358-3.740 [facility] Comment on above: Performed By: #### I NSULIN #### [facility] [address] [address] [address] Ekta Funk XR CHEST 2 Von [...] GODWIN BECK Date: 2022-11-13 15:40 Normal [facility] PROF 14(COMP METB)on 023 Albumin [Mass/Vol] 3.0 g/dL Critically low 3.4-5.0 Th [facility] Comment on above: Performed By: #### B 12FOL, VITAD, IRON #### [facility] [address] [place] [address] Dr. Ekta Funk Albumin/Globulin [Mass ratio] 0.7 {ratio} Normal [facility] Comment on above: Performed By: #### B 12FOL, VITAD, IRON #### [facility] [address] [place] [address] Dr. Ekta Funk ALP [Catalytic activity/Vol] 89 U/L Normal 46-116 [facility] Comment on above: Performed By: #### B 12FOL, VITAD, IRON #### [facility] [address] [place] [address] Dr. Ekta Funk ALT [Catalytic activity/Vol] 29 U/L Normal 14-59 [facility] Comment on above: Performed By: #### B 12FOL, VITAD, IRON #### [facility] [address] [place] [address] Dr. Ekta Funk Anion gap [Moles/Vol] 15.2 mmol/L Normal [facility] Comment on above: Performed By: #### B 12FOL, VITAD, IRON #### [facility] [address] [address] [address] Ekta Funk AST [Catalytic activity/Vol] 14 U/L Critically low 15-37 [facility] Comment on above: Performed By: #### B 12FOL, VITAD, IRON #### [facility] [address] [address] [address] Ekta Funk Bilirubin [Mass/Vol] 0.4 mg/dL Normal 0.2-1.0 [facility] Comment on above: Performed By: #### B 12FOL, VITAD, IRON #### [facility] [address] [place] [address] Dr. Ekta Funk Calcium [Mass/Vol] 9.1 mg/dL Normal 8.5-10.1 [facility] Comment on above: Performed By: #### B 12FOL, VITAD, IRON #### [facility] [address] [place] [address] Dr. Ekta Funk Chloride [Moles/Vol] 106 mmol/L Normal 98-107 [facility] Comment on above: Performed By: #### B 12FOL, VITAD, IRON #### [facility] [address] [address] [address] Ekta Funk CO2 [Moles/Vol] 24.2 mmol/L Normal 21.0-32.0 [facility] Comment on above: Performed By: #### B 12FOL, VITAD, IRON #### [facility] [address] [place] [address] Dr. Ekta Funk Creatinine [Mass/Vol] 1.89 mg/dL Critically high 0.55-1.02 [facility] Comment on above: Performed By: #### B 12FOL, VITAD, IRON #### [facility] [address] [place] [address] Dr. Ekta Funk EGFR-AF GEORGIAN 32 mL/min/1.73m2 Critically low >=60 [facility] Comment on above: Performed By: #### B 12FOL, VITAD, IRON #### [facility] [address] [place] [address] Dr. Ekta Funk EGFR-NON AF GEORGIAN 26 mL/min/1.73m2 Critically low >=60 [facility] Comment on above: Performed By: #### B 12FOL, VITAD, IRON #### [facility] [address] [address] [address] Ekta Funk Globulin (S) [Mass/Vol] 4.1 g/dL Normal [facility] Comment on above: Performed By: #### B 12FOL, VITAD, IRON #### [facility] [address] [address] [address] Ekta Funk Glucose [Mass/Vol] 108 mg/dL Critically high 74-[address] [facility] Comment on above: Performed By: #### B 12FOL, VITAD, IRON #### [facility] [address] [address] [address] Ekta Funk Potassium [Moles/Vol] 4.4 mmol/L Normal 3.5-5.1 [facility] Comment on above: Performed By: #### B 12FOL, VITAD, IRON #### [facility] [address] [address] [address] Ekta Funk Protein [Mass/Vol] 7.1 g/dL Normal 6.4-8.2 [facility] Comment on above: Performed By: #### B 12FOL, VITAD, IRON #### [facility] [address] [address] [address] Ekta Funk Sodium [Moles/Vol] 141 mmol/L Normal 136-145 [facility] Comment on above: Performed By: #### B 12FOL, VITAD, IRON #### [facility] [address] [address] [address] Ekta Funk Urea nitrogen [Mass/Vol] 40.0 mg/dL Critically high 7.0-18.0 [facility] Comment on above: Performed By: #### B 12FOL, VITAD, IRON #### [facility] [address] [address] [address] Ekta Funk Urea nitrogen/Creatinine [Mass ratio] 21.2 mg/mg Normal [facility] Comment on above: Performed By: #### B 12FOL, VITAD, IRON #### [facility] [address] [place] [address] Dr. Ekta Funk BNPon 10-23-2022 Natriuretic peptide B (Bld) [Mass/Vol] 507.0 pg/mL Normal <=900.0 [facility] Comment on above: Performed By: #### B 12FOL, VITAD, IRON #### [facility] [address] [place] [address] Dr. Ekta Funk CBC AUTO DIFFon 10-23-2022 BASO # 0.0 103/ul Normal 0.0-0.1 [facility] Comment on above: Performed By: #### C BC #### [facility] [address] [place] [address] Dr. Ekta Funk Basophils/100 WBC (Bld) 0.2 % Normal 0.2-2.0 [facility] Comment on above: Performed By: #### C BC #### [facility] [address] [place] [address] Dr. Ekta Funk EO # 0.1 103/ul Normal 0.0-0.7 [facility] Comment on above: Performed By: #### C BC #### [facility] [address] [place] [address] Dr. Ekta Funk Eosinophils/100 WBC (Bld) 1.1 % Normal 0.9-7.0 [facility] Comment on above: Performed By: #### C BC #### [facility] [address] [place] [address] Dr. Ekta Funk Erythrocyte distribution width (RBC) [Ratio] 12.8 % Normal 11.0-15.0 [facility] Comment on above: Performed By: #### C BC #### [facility] [address] [place] [address] Dr. Ekta Funk Hematocrit (Bld) [Volume fraction] 37.1 % Normal 36.0-48.0 [facility] Comment on above: Performed By: #### C BC #### [facility] [address] [address] [address] Ekta Funk Hemoglobin (Bld) [Mass/Vol] 13.0 g/dL Normal 12.0-16.0 [facility] Comment on above: Performed By: #### C BC #### [facility] [address] [address] [address] Ekta Funk IG # 0.11 10e3/ul Critically high 0.00-0.03 [facility] Comment on above: Performed By: #### C BC #### [facility] [address] [address] [address] Ekta Fnuk IG % 1.1 % Critically high 0.0-0.5 [facility] Comment on above: Performed By: #### C BC #### [facility] [address] [place] [address] Dr. Ekta Funk LYMPH # 1.6 103/ul Normal 1.2-3.8 [facility] Comment on above: Performed By: #### C BC #### [facility] [address] [place] [address] Dr. Ekta Funk Lymphocytes/100 WBC (Bld) 15.6 % Critically low 20.5-60.0 [facility] Comment on above: Performed By: #### C BC #### [facility] [address] [place] [address] Dr. Ekta Funk MANUAL DIFF REQ NO Normal [facility] Comment on above: Performed By: #### C BC #### [facility] [address] [address] [address] Ekta Funk MCH (RBC) [Entitic mass] 32.8 pg Normal 26.7-34.0 [facility] Comment on above: Performed By: #### C BC #### [facility] [address] [place] [address] Dr. Ekta Funk MCHC (RBC) [Mass/Vol] 35.0 g/dL Normal 29.9-35.2 [facility] Comment on above: Performed By: #### C BC #### [facility] [address] [place] [address] Dr. Ekta Funk MCV (RBC) [Entitic vol] 93.7 fL Normal 81.0-99.0 [facility] Comment on above: Performed By: #### C BC #### [facility] [address] [place] [address] Dr. Ekta Funk MONO # 0.9 103/ul Critically high 0.3-0.8 [facility] Comment on above: Performed By: #### C BC #### [facility] [address] [place] [address] Dr. Ekta Funk Monocytes/100 WBC (Bld) 8.3 % Normal 1.7-12.0 [facility] Comment on above: Performed By: #### C BC #### [facility] [address] [place] [address] Dr. Ekta Funk NEUT # 7.5 103/ul Critically high 1.4-6.5 [facility] Comment on above: Performed By: #### C BC #### [facility] [address] [place] [address] Dr. Ekta Funk Neutrophils/100 WBC (Bld) 73.7 % Normal 43.0-75.0 [facility] Comment on above: Performed By: #### C BC #### [facility] [address] [place] [address] Dr. Ekta Funk Platelet mean volume (Bld) [Entitic vol] 10.3 fL Normal 9.5-13.5 [facility] Comment on above: Performed By: #### C BC #### [facility] [address] [place] [address] Dr. Ekta Funk PLT 135 103/ul Critically low 150-450 [facility] Comment on above: Performed By: #### C BC #### [facility] [address] [place] [address] Dr. Ekta Funk RBC 3.96 106/ul Critically low 4.20-5.40 [facility] Comment on above: Performed By: #### C BC #### [facility] [address] [place] [address] Dr. Ekta Funk WBC 10.2 103/ul Normal 4.0-11.0 [facility] Comment on above: Performed By: #### C BC #### [facility] [address] [place] [address] Dr. Ekta Funk PROF 14(COMP METB)on 023 Albumin [Mass/Vol] 2.7 g/dL Critically low 3.4-5.0 Th e [facility] Comment on above: Performed By: #### B 12FOL, VITAD, IRON #### [facility] [address] [place] [address] Dr. Ekta Funk Albumin/Globulin [Mass ratio] 0.8 {ratio} Normal [facility] Comment on above: Performed By: #### B 12FOL, VITAD, IRON #### [facility] [address] [place] [address] Dr. Ekta Funk ALP [Catalytic activity/Vol] 74 U/L Normal 46-116 [facility] Comment on above: Performed By: #### B 12FOL, VITAD, IRON #### [facility] [address] [place] [address] Dr. Ekta Funk ALT [Catalytic activity/Vol] 26 U/L Normal 14-59 [facility] Comment on above: Performed By: #### B 12FOL, VITAD, IRON #### [facility] [address] [place] [address] Dr. Ekta Funk Anion gap [Moles/Vol] 16.5 mmol/L Normal [facility] Comment on above: Performed By: #### B 12FOL, VITAD, IRON #### [facility] [address] [place] [address] Dr. Ekta Funk AST [Catalytic activity/Vol] 15 U/L Normal 15-37 [facility] Comment on above: Performed By: #### B 12FOL, VITAD, IRON #### [facility] [address] [place] [address] Dr. Ekta Funk Bilirubin [Mass/Vol] 0.4 mg/dL Normal 0.2-1.0 [facility] Comment on above: Performed By: #### B 12FOL, VITAD, IRON #### [facility] [address] [place] [address] Dr. Ekta Funk Calcium [Mass/Vol] 8.1 mg/dL Critically low 8.5-10.1 Th [facility] Comment on above: Performed By: #### B 12FOL, VITAD, IRON #### [facility] [address] [place] [address] Dr. Ekta Funk Chloride [Moles/Vol] 96 mmol/L Critically low 98-107 [facility] Comment on above: Performed By: #### B 12FOL, VITAD, IRON #### [facility] [address] [place] [address] Dr. Ekta Funk CO2 [Moles/Vol] 26.1 mmol/L Normal 21.0-32.0 [facility] Comment on above: Performed By: #### B 12FOL, VITAD, IRON #### [facility] [address] [place] [address] Dr. Ekta Funk Creatinine [Mass/Vol] 3.28 mg/dL Critically high 0.55-1.02 [facility] Comment on above: Performed By: #### B 12FOL, VITAD, IRON #### [facility] [address] [place] [address] Dr. Ekta Funk EGFR-AF GEORGIAN 17 mL/min/1.73m2 Critically low >=60 [facility] Comment on above: Performed By: #### B 12FOL, VITAD, IRON #### [facility] [address] [place] [address] Dr. Ekta Funk EGFR-NON AF GEORGIAN 14 mL/min/1.73m2 Critically low >=60 [facility] Comment on above: Performed By: #### B 12FOL, VITAD, IRON #### [facility] [address] [place] [address] Dr. Ekta Funk Globulin (S) [Mass/Vol] 3.6 g/dL Normal [facility] Comment on above: Performed By: #### B 12FOL, VITAD, IRON #### [facility] [address] [place] [address] Dr. Ekta Funk Glucose [Mass/Vol] 132 mg/dL Critically high 74-[address] [facility] Comment on above: Performed By: #### B 12FOL, VITAD, IRON #### [facility] [address] [place] [address] Dr. Ekta Funk Potassium [Moles/Vol] 4.6 mmol/L Normal 3.5-5.1 [facility] Comment on above: Performed By: #### B 12FOL, VITAD, IRON #### [facility] [address] [place] [address] Dr. Ekta Funk Protein [Mass/Vol] 6.3 g/dL Critically low 6.4-8.2 [facility] Comment on above: Performed By: #### B 12FOL, VITAD, IRON #### [facility] [address] [place] [address] Dr. Ekta Funk Sodium [Moles/Vol] 134 mmol/L Critically low 136-145 [facility] Comment on above: Performed By: #### B 12FOL, VITAD, IRON #### [facility] [address] [place] [address] Dr. Ekta Funk Urea nitrogen [Mass/Vol] 74.0 mg/dL Critically high 7.0-18.0 [facility] Comment on above: Performed By: #### B 12FOL, VITAD, IRON #### [facility] [address] [place] [address] Dr. Ekta Funk Urea nitrogen/Creatinine [Mass ratio] 22.6 mg/mg Normal [facility] Comment on above: Performed By: #### B 12FOL, VITAD, IRON #### [facility] [address] [place] [address] Dr. Ekta Funk BNPon 10-22-2022 Natriuretic peptide B (Bld) [Mass/Vol] 1411.0 pg/mL Critically high <=900.0 [facility] Comment on above: Performed By: #### B 12FOL, VITAD, IRON #### [facility] [address] [place] [address] Dr. Ekta Funk CBC AUTO DIFFon 10-22-2022 BASO # 0.0 103/ul Normal 0.0-0.1 [facility] Comment on above: Performed By: #### B 12FOL, VITAD, IRON #### [facility] [address] [place] [address] Dr. Ekta Funk Basophils/100 WBC (Bld) 0.3 % Normal 0.2-2.0 [facility] Comment on above: Performed By: #### B 12FOL, VITAD, IRON #### [facility] [address] [place] [address] Dr. Ekta Funk EO # 0.1 103/ul Normal 0.0-0.7 [facility] Comment on above: Performed By: #### B 12FOL, VITAD, IRON #### [facility] [address] [place] [address] Dr. Ekta Funk Eosinophils/100 WBC (Bld) 0.6 % Critically low 0.9-7.0 [facility] Comment on above: Performed By: #### B 12FOL, VITAD, IRON #### [facility] [address] [place] [address] Dr. Ekta Funk Erythrocyte distribution width (RBC) [Ratio] 12.9 % Normal 11.0-15.0 [facility] Comment on above: Performed By: #### B 12FOL, VITAD, IRON #### [facility] [address] [place] [address] Dr. Ekta Funk Hematocrit (Bld) [Volume fraction] 40.8 % Normal 36.0-48.0 [facility] Comment on above: Performed By: #### B 12FOL, VITAD, IRON #### [facility] [address] [place] [address] Dr. Ekta Funk Hemoglobin (Bld) [Mass/Vol] 14.0 g/dL Normal 12.0-16.0 [facility] Comment on above: Performed By: #### B 12FOL, VITAD, IRON #### [facility] [address] [address] [address] Ekta Funk IG # 0.09 10e3/ul Critically high 0.00-0.03 [facility] Comment on above: Performed By: #### B 12FOL, VITAD, IRON #### [facility] [address] [address] [address] Ekta Funk IG % 0.8 % Critically high 0.0-0.5 [facility] Comment on above: Performed By: #### B 12FOL, VITAD, IRON #### [facility] [address] [place] [address] Dr. Ekta Funk LYMPH # 1.8 103/ul Normal 1.2-3.8 [facility] Comment on above: Performed By: #### B 12FOL, VITAD, IRON #### [facility] [address] [place] [address] Dr. Ekta Funk Lymphocytes/100 WBC (Bld) 16.2 % Critically low 20.5-60.0 [facility] Comment on above: Performed By: #### B 12FOL, VITAD, IRON #### [facility] [address] [address] [address] Ekta Funk MANUAL DIFF REQ NO Normal [facility] Comment on above: Performed By: #### B 12FOL, VITAD, IRON #### [facility] [address] [place] [address] Dr. Ekta Funk MCH (RBC) [Entitic mass] 32.3 pg Normal 26.7-34.0 [facility] Comment on above: Performed By: #### B 12FOL, VITAD, IRON #### [facility] [address] [place] [address] Dr. Ekta Funk MCHC (RBC) [Mass/Vol] 34.3 g/dL Normal 29.9-35.2 [facility] Comment on above: Performed By: #### B 12FOL, VITAD, IRON #### [facility] [address] [place] [address] Dr. Ekta Funk MCV (RBC) [Entitic vol] 94.2 fL Normal 81.0-99.0 [facility] Comment on above: Performed By: #### B 12FOL, VITAD, IRON #### [facility] [address] [place] [address] Dr. Ekta Funk MONO # 0.8 103/ul Normal 0.3-0.8 [facility] Comment on above: Performed By: #### B 12FOL, VITAD, IRON #### [facility] [address] [place] [address] Dr. Ekta Funk Monocytes/100 WBC (Bld) 7.3 % Normal 1.7-12.0 [facility] Comment on above: Performed By: #### B 12FOL, VITAD, IRON #### [facility] [address] [place] [address] Dr. Ekta Funk NEUT # 8.1 103/ul Critically high 1.4-6.5 [facility] Comment on above: Performed By: #### B 12FOL, VITAD, IRON #### [facility] [address] [place] [address] Dr. Ekta Funk Neutrophils/100 WBC (Bld) 74.8 % Normal 43.0-75.0 [facility] Comment on above: Performed By: #### B 12FOL, VITAD, IRON #### [facility] [address] [place] [address] Dr. Ekta Funk Platelet mean volume (Bld) [Entitic vol] 9.8 fL Normal 9.5-13.5 [facility] Comment on above: Performed By: #### B 12FOL, VITAD, IRON #### [facility] [address] [place] [address] Dr. Ekta Funk PLT 226 103/ul Normal 150-450 [facility] Comment on above: Performed By: #### B 12FOL, VITAD, IRON #### [facility] [address] [place] [address] Dr. Ekta Funk RBC 4.33 106/ul Normal 4.20-5.40 [facility] Comment on above: Performed By: #### B 12FOL, VITAD, IRON #### [facility] [address] [place] [address] Dr. Ekta Funk WBC 10.9 103/ul Normal 4.0-11.0 [facility] Comment on above: Performed By: #### B 12FOL, VITAD, IRON #### [facility] [address] [place] [address] Dr. Ekta Funk PROF 14(COMP METB)on 023 Albumin [Mass/Vol] 3.1 g/dL Critically low 3.4-5.0 [facility] Comment on above: Performed By: #### B 12FOL, VITAD, IRON #### [facility] [address] [place] [address] Dr. Ekta Funk Albumin/Globulin [Mass ratio] 0.7 {ratio} Normal [facility] Comment on above: Performed By: #### B 12FOL, VITAD, IRON #### [facility] [address] [place] [address] Dr. Ekta Funk ALP [Catalytic activity/Vol] 81 U/L Normal 46-116 [facility] Comment on above: Performed By: #### B 12FOL, VITAD, IRON #### [facility] [address] [place] [address] Dr. Ekta Funk ALT [Catalytic activity/Vol] 30 U/L Normal 14-59 [facility] Comment on above: Performed By: #### B 12FOL, VITAD, IRON #### [facility] [address] [place] [address] Dr. Ekta Funk Anion gap [Moles/Vol] 17.3 mmol/L Normal [facility] Comment on above: Performed By: #### B 12FOL, VITAD, IRON #### [facility] [address] [place] [address] Dr. Ekta Funk AST [Catalytic activity/Vol] 11 U/L Critically low 15-37 [facility] Comment on above: Performed By: #### B 12FOL, VITAD, IRON #### [facility] [address] [place], [place] [id number] Dr. Ekta Funk Bilirubin [Mass/Vol] 0.5 mg/dL Normal 0.2-1.0 [facility] Comment on above: Performed By: #### B 12FOL, VITAD, IRON #### [facility] [address] [place] [address] Dr. Ekta Funk Calcium [Mass/Vol] 8.6 mg/dL Normal 8.5-10.1 [facility] Comment on above: Performed By: #### B 12FOL, VITAD, IRON #### [facility] [address] [place] [address] Dr. Ekta Funk Chloride [Moles/Vol] 95 mmol/L Critically low 98-107 [facility] Comment on above: Performed By: #### B 12FOL, VITAD, IRON #### [facility] [address] [place] [address] Dr. Ekta Funk CO2 [Moles/Vol] 27.3 mmol/L Normal 21.0-32.0 [facility] Comment on above: Performed By: #### B 12FOL, VITAD, IRON #### [facility] [address] [place] [address] Dr. Ekta Funk Creatinine [Mass/Vol] 3.17 mg/dL Critically high 0.55-1.02 [facility] Comment on above: Performed By: #### B 12FOL, VITAD, IRON #### [facility] [address] [place] [address] Dr. Ekta Funk EGFR-AF GEORGIAN 17 mL/min/1.73m2 Critically low >=60 [facility] Comment on above: Performed By: #### B 12FOL, VITAD, IRON #### [facility] [address] [place] [address] Dr. Ekta Funk EGFR-NON AF GEORGIAN 14 mL/min/1.73m2 Critically low >=60 [facility] Comment on above: Performed By: #### B 12FOL, VITAD, IRON #### [facility] [address] [place] [address] Dr. Ekta Funk Globulin (S) [Mass/Vol] 4.6 g/dL Normal [facility] Comment on above: Performed By: #### B 12FOL, VITAD, IRON #### [facility] [address] [place] [address] Dr. Ekta Funk Glucose [Mass/Vol] 139 mg/dL Critically high 74-[address] [facility] Comment on above: Performed By: #### B 12FOL, VITAD, IRON #### [facility] [address] [address] [address] Ekta Funk Potassium [Moles/Vol] 4.6 mmol/L Normal 3.5-5.1 [facility] Comment on above: Performed By: #### B 12FOL, VITAD, IRON #### [facility] [address] [place] [address] Dr. Ekta Funk Protein [Mass/Vol] 7.7 g/dL Normal 6.4-8.2 [facility] Comment on above: Performed By: #### B 12FOL, VITAD, IRON #### [facility] [address] [place] [address] Dr. Ekta Funk Sodium [Moles/Vol] 135 mmol/L Critically low 136-145 [facility] Comment on above: Performed By: #### B 12FOL, VITAD, IRON #### [facility] [address] [place] [address] Dr. Ekta Funk Urea nitrogen [Mass/Vol] 73.0 mg/dL Critically high 7.0-18.0 [facility] Comment on above: Performed By: #### B 12FOL, VITAD, IRON #### [facility] [address] [place] [address] Dr. Ekta Funk Urea nitrogen/Creatinine [Mass ratio] 23.0 mg/mg Normal [facility] Comment on above: Performed By: #### B 12FOL, VITAD, IRON #### [facility] [address] [place] [address] Dr. Ekta Funk BNPon 10-21-2022 Natriuretic peptide B (Bld) [Mass/Vol] 2007.0 pg/mL Critically high <=900.0 [facility] Comment on above: Performed By: #### C MP #### [facility] [address] [place] [address] Dr. Ekta Funk CBC AUTO DIFFon 10-21-2022 BASO # 0.0 103/ul Normal 0.0-0.1 [facility] Comment on above: Performed By: #### C BC #### [facility] [address] [place] [address] Dr. Ekta Funk Basophils/100 WBC (Bld) 0.2 % Normal 0.2-2.0 [facility] Comment on above: Performed By: #### C BC #### [facility] [address] [place] [address] Dr. Ekta Funk EO # 0.1 103/ul Normal 0.0-0.7 [facility] Comment on above: Performed By: #### C BC #### [facility] [address] [place] [address] Dr. Ekta Funk Eosinophils/100 WBC (Bld) 0.9 % Normal 0.9-7.0 [facility] Comment on above: Performed By: #### C BC #### [facility] [address] [place] [address] Dr. Ekta Funk Erythrocyte distribution width (RBC) [Ratio] 12.8 % Normal 11.0-15.0 [facility] Comment on above: Performed By: #### C BC #### [facility] [address] [place] [address] Dr. Ekta Funk Hematocrit (Bld) [Volume fraction] 38.8 % Normal 36.0-48.0 [facility] Comment on above: Performed By: #### C BC #### [facility] [address] [place] [address] Dr. Ekta Funk Hemoglobin (Bld) [Mass/Vol] 13.3 g/dL Normal 12.0-16.0 [facility] Comment on above: Performed By: #### C BC #### [facility] [address] [place] [address] Dr. Ekta Funk IG # 0.08 10e3/ul Critically high 0.00-0.03 [facility] Comment on above: Performed By: #### C BC #### [facility] [address] [place] [address] Dr. Ekta Funk IG % 0.8 % Critically high 0.0-0.5 [facility] Comment on above: Performed By: #### C BC #### [facility] [address] [place] [address] Dr. Ekta Funk LYMPH # 1.7 103/ul Normal 1.2-3.8 [facility] Comment on above: Performed By: #### C BC #### [facility] [address] [place] [address] Dr. Ekta Funk Lymphocytes/100 WBC (Bld) 17.3 % Critically low 20.5-60.0 [facility] Comment on above: Performed By: #### C BC #### [facility] [address] [place] [address] Dr. Ekta Fukn MANUAL DIFF REQ NO Normal [facility] Comment on above: Performed By: #### C BC #### [facility] [address] [place] [address] Dr. Ekta Funk MCH (RBC) [Entitic mass] 32.1 pg Normal 26.7-34.0 [facility] Comment on above: Performed By: #### C BC #### [facility] [address] [place] [address] Dr. Ekta Funk MCHC (RBC) [Mass/Vol] 34.3 g/dL Normal 29.9-35.2 [facility] Comment on above: Performed By: #### C BC #### [facility] [address] [place] [address] Dr. Ekta Funk MCV (RBC) [Entitic vol] 93.7 fL Normal 81.0-99.0 [facility] Comment on above: Performed By: #### C BC #### [facility] [address] [place] [address] Dr. Ekta Funk MONO # 0.6 103/ul Normal 0.3-0.8 [facility] Comment on above: Performed By: #### C BC #### [facility] [address] [address] [address] Ekta Funk Monocytes/100 WBC (Bld) 6.4 % Normal 1.7-12.0 [facility] Comment on above: Performed By: #### C BC #### [facility] [address] [address] [address] Ekta Funk NEUT # 7.4 103/ul Critically high 1.4-6.5 [facility] Comment on above: Performed By: #### C BC #### [facility] [address] [address] [address] Ekta Funk Neutrophils/100 WBC (Bld) 74.4 % Normal 43.0-75.0 [facility] Comment on above: Performed By: #### C BC #### [facility] [address] [place] [address] Dr. Ekta Funk Platelet mean volume (Bld) [Entitic vol] 9.8 fL Normal 9.5-13.5 [facility] Comment on above: Performed By: #### C BC #### [facility] [address] [place] [address] Dr. Ekta Funk PLT 193 103/ul Normal 150-450 [facility] Comment on above: Performed By: #### C BC #### [facility] [address] [address] [address] Ekta uFnk RBC 4.14 106/ul Critically low 4.20-5.40 [facility] Comment on above: Performed By: #### C BC #### [facility] [address] [address] [address] Ekta Funk WBC 9.9 103/ul Normal 4.0-11.0 [facility] Comment on above: Performed By: #### C BC #### [facility] [address] [place] [address] Dr. Ekta Funk PROF 14(COMP METB)on 023 Albumin [Mass/Vol] 3.2 g/dL Critically low 3.4-5.0 [facility] Comment on above: Performed By: #### I NSULIN #### [facility] [address] [address] [address] Ekta Funk Albumin/Globulin [Mass ratio] 0.8 {ratio} Normal [facility] Comment on above: Performed By: #### I NSULIN #### [facility] [address] [address] [address] Ekta Funk ALP [Catalytic activity/Vol] 82 U/L Normal 46-116 [facility] Comment on above: Performed By: #### I NSULIN #### [facility] [address] [address] [address] Ekta Funk ALT [Catalytic activity/Vol] 38 U/L Normal 14-59 [facility] Comment on above: Performed By: #### I NSULIN #### [facility] [address] [place] [address] Dr. Ekta Funk Anion gap [Moles/Vol] 19.1 mmol/L Normal [facility] Comment on above: Performed By: #### I NSULIN #### [facility] [address] [address] [address] Ekta Funk AST [Catalytic activity/Vol] 19 U/L Normal 15-37 [facility] Comment on above: Performed By: #### I NSULIN #### [facility] [address] [place] [address] Dr. Ekta Funk Bilirubin [Mass/Vol] 0.4 mg/dL Normal 0.2-1.0 [facility] Comment on above: Performed By: #### I NSULIN #### [facility] [address] [address] [address] Ekta Funk Calcium [Mass/Vol] 9.2 mg/dL Normal 8.5-10.1 [facility] Comment on above: Performed By: #### I NSULIN #### [facility] [address] [address] [address] Ekta Funk Chloride [Moles/Vol] 98 mmol/L Normal 98-107 [facility] Comment on above: Performed By: #### I NSULIN #### [facility] [address] [address] [address] Ekta Funk CO2 [Moles/Vol] 26.4 mmol/L Normal 21.0-32.0 [facility] Comment on above: Performed By: #### I NSULIN #### [facility] [address] [address] [address] Ekta Funk Creatinine [Mass/Vol] 2.20 mg/dL Critically high 0.55-1.02 [facility] Comment on above: Performed By: #### I NSULIN #### [facility] [address] [address] [address] Ekta Funk EGFR-AF GEORGIAN 26 mL/min/1.73m2 Critically low >=60 [facility] Comment on above: Performed By: #### I NSULIN #### [facility] [address] [address] [address] Ekta Funk EGFR-NON AF GEORGIAN 22 mL/min/1.73m2 Critically low >=60 [facility] Comment on above: Performed By: #### I NSULIN #### [facility] [address] [address] [address] Ekta Funk Globulin (S) [Mass/Vol] 3.8 g/dL Normal [facility] Comment on above: Performed By: #### I NSULIN #### [facility] [address] [address] [address] Ekta Funk Glucose [Mass/Vol] 142 mg/dL Critically high 74-[address] [facility] Comment on above: Performed By: #### I NSULIN #### [facility] [address] [address] [address] Ekta Funk Potassium [Moles/Vol] 4.5 mmol/L Normal 3.5-5.1 [facility] Comment on above: Performed By: #### I NSULIN #### [facility] [address] [address] [address] Ekta Funk Protein [Mass/Vol] 7.0 g/dL Normal 6.4-8.2 [facility] Comment on above: Performed By: #### I NSULIN #### [facility] [address] [address] [address] Ekta Funk Sodium [Moles/Vol] 139 mmol/L Normal 136-145 [facility] Comment on above: Performed By: #### I NSULIN #### [facility] [address] [address] [address] Ekta Funk Urea nitrogen [Mass/Vol] 57.0 mg/dL Critically high 7.0-18.0 [facility] Comment on above: Performed By: #### I NSULIN #### [facility] [address] [address] [address] Ekta Funk Urea nitrogen/Creatinine [Mass ratio] 25.9 mg/mg Normal [facility] Comment on above: Performed By: #### I NSULIN #### [facility] [address] [address] [address] Ekta Funk T3, TOTAL (TRIIODOTHYRONINE) on 10-21-2022 T3, TOTAL 63 ng/dL Critically low 71-180 [facility] Comment on above: Performed By: #### C MP #### [facility] [address] [address] [address] Ekta Funk XR ABD FLAT_UPon 10-21-2022 [...] by: VISHNU MARIE Date: 2022-10-21 11:42 Normal [facility] XR CHEST 2 Von 10-21-2022 XR [...] by: CHRISTIANO MORALES Date: 2022-10-21 11:23 Normal [facility] BNPon 10-20-2022 Natriuretic peptide B (Bld) [Mass/Vol] 2512.0 pg/mL Critically high <=900.0 [facility] Comment on above: Performed By: #### B 12FOL, VITAD, IRON #### [facility] [address] [address] [address] Ekta Funk CARDIAC BRITTANIE ADMITon 023 CK [Catalytic activity/Vol] 35 U/L Normal 26-192 [facility] Comment on above: Performed By: #### B 12FOL, VITAD, IRON #### [facility] [address] [place] [address] Dr. Ekta Funk CK.MB [Mass/Vol] 0.64 ng/mL Normal <=3.60 [facility] Comment on above: Performed By: #### B 12FOL, VITAD, IRON #### [facility] [address] [place] [address] Dr. Ekta Funk HSTROP 28.1 pg/mL Normal 4.0-51.3 [facility] Comment on above: Result Comment: CUT- OFF POINTS HAVE BEEN ESTABLISHED BASED ON THE FOURTH UNIVERSAL DEFINITIONS OF MYOCARDIAL INFARCTION. THE UPPER REFERENCE LIMIT (URL) OF TROPONIN, DEFINED THE 99TH PERCENTILE OF cTnI DISTRIBUTION IN A REFERENCE POPULATION, HAS BEEN CONFIRMED THE DECISION THRESHOLD FOR [place] DIAGNOSIS. Performed By: #### B 12FOL, VITAD, IRON #### [facility] [address] [address] [address] Ekta Funk EVELYN 57 ng/mL Normal 9-82 [facility] Comment on above: Performed By: #### B 12FOL, VITAD, IRON #### [facility] [address] [place] [address] Dr. Ekta Funk CBC AUTO DIFFon 10-20-2022 BASO # 0.0 103/ul Normal 0.0-0.1 [facility] Comment on above: Performed By: #### C BC #### [facility] [address] [place] [address] Dr. Ekta Funk Basophils/100 WBC (Bld) 0.2 % Normal 0.2-2.0 [facility] Comment on above: Performed By: #### C BC #### [facility] [address] [place] [address] Dr. Ekta Funk EO # 0.2 103/ul Normal 0.0-0.7 [facility] Comment on above: Performed By: #### C BC #### [facility] [address] [place] [address] Dr. Ekta Funk Eosinophils/100 WBC (Bld) 1.4 % Normal 0.9-7.0 [facility] Comment on above: Performed By: #### C BC #### [facility] [address] [place] [address] Dr. Ekta Funk Erythrocyte distribution width (RBC) [Ratio] 12.9 % Normal 11.0-15.0 [facility] Comment on above: Performed By: #### C BC #### [facility] [address] [place] [address] Dr. Ekta Funk Hematocrit (Bld) [Volume fraction] 34.7 % Critically low 36.0-48.0 [facility] Comment on above: Performed By: #### C BC #### [facility] [address] [place] [address] Dr. Ekta Funk Hemoglobin (Bld) [Mass/Vol] 11.8 g/dL Critically low 12.0-16.0 [facility] Comment on above: Performed By: #### C BC #### [facility] [address] [place] [address] Dr. Ekta Funk IG # 0.09 10e3/ul Critically high 0.00-0.03 [facility] Comment on above: Performed By: #### C BC #### [facility] [address] [place] [address] Dr. Ekta Funk IG % 0.8 % Critically high 0.0-0.5 [facility] Comment on above: Performed By: #### C BC #### [facility] [address] [place] [address] Dr. Ekta Funk LYMPH # 1.9 103/ul Normal 1.2-3.8 [facility] Comment on above: Performed By: #### C BC #### [facility] [address] [place] [address] Dr. Ekta Fnuk Lymphocytes/100 WBC (Bld) 16.1 % Critically low 20.5-60.0 [facility] Comment on above: Performed By: #### C BC #### [facility] [address] [place] [address] Dr. Ekta Funk MANUAL DIFF REQ NO Normal [facility] Comment on above: Performed By: #### C BC #### [facility] [address] [place] [address] Dr. Ekta Funk MCH (RBC) [Entitic mass] 32.6 pg Normal 26.7-34.0 [facility] Comment on above: Performed By: #### C BC #### [facility] [address] [place] [address] Dr. Ekta Funk MCHC (RBC) [Mass/Vol] 34.0 g/dL Normal 29.9-35.2 [facility] Comment on above: Performed By: #### C BC #### [facility] [address] [place] [address] Dr. Ekta Funk MCV (RBC) [Entitic vol] 95.9 fL Normal 81.0-99.0 [facility] Comment on above: Performed By: #### C BC #### [facility] [address] [place] [address] Dr. Ekta Funk MONO # 0.8 103/ul Normal 0.3-0.8 [facility] Comment on above: Performed By: #### C BC #### [facility] [address] [place] [address] Dr. Ekta Funk Monocytes/100 WBC (Bld) 7.0 % Normal 1.7-12.0 [facility] Comment on above: Performed By: #### C BC #### [facility] [address] [address] [address] Ekta Funk NEUT # 8.8 103/ul Critically high 1.4-6.5 [facility] Comment on above: Performed By: #### C BC #### [facility] [address] [address] [address] Ekta Funk Neutrophils/100 WBC (Bld) 74.5 % Normal 43.0-75.0 [facility] Comment on above: Performed By: #### C BC #### [facility] [address] [address] [address] Ekta Funk Platelet mean volume (Bld) [Entitic vol] 9.8 fL Normal 9.5-13.5 [facility] Comment on above: Performed By: #### C BC #### [facility] [address] [place] [address] Dr. Ekta Funk PLT 203 103/ul Normal 150-450 [facility] Comment on above: Performed By: #### C BC #### [facility] [address] [address] [address] Ekta uFnk RBC 3.62 106/ul Critically low 4.20-5.40 [facility] Comment on above: Performed By: #### C BC #### [facility] [address] [address] [address] Ekta Funk WBC 11.8 103/ul Critically high 4.0-11.0 [facility] Comment on above: Performed By: #### C BC #### [facility] [address] [place] [address] Dr. Ekta Funk CULTURE URINEon 10-20-2022 CULTURE URINE Culture Observations : NO GROWTH. Normal [facility] Comment on above: Performed By: #### I NSULIN #### [facility] [address] [place] [address] Dr. Ekta Funk Covid-19 PCR (CVDTB)on 10-11 SARS-CoV-2 (COVID-19) RNA GANESH+probe Ql (Unsp spec) Not detected Normal NOT DETECTED [facility] Comment on above: Result Comment: When [...] for this test is supported by the [place] [employer] and Human Service's declaration that [...] be used). Performed By: #### B 12FOL, CAROLYN, IRON #### [facility] [address] [address] [address] Ekta Funk ECHOCARDIO M/2D COMPLETEon 0 10-20-2022 ECHOCARDIO M/2D COMPLETE Patient: SHEILA MAC Exam Date: 10/20/2022 : 1950 Gender:F Ordering : DR KRZYSZTOF HARP . Admission #: [id number] Family : Order #: [id number] CLICK HERE TO VIEW EXAM ECHOCARDIOGRAM REPORT [...] Mckay M.D. on 10/20/2022 at 14:57 Normal [facility] PROF 14(COMP METB)on 023 Albumin [Mass/Vol] 2.8 g/dL Critically low 3.4-5.0 Th e [facility] Comment on above: Performed By: #### B 12FOL, VITAD, IRON #### [facility] [address] [place] [address] Dr. Ekta Funk Albumin/Globulin [Mass ratio] 0.7 {ratio} Normal [facility] Comment on above: Performed By: #### B 12FOL, VITAD, IRON #### [facility] [address] [place] [address] Dr. Ekta Funk ALP [Catalytic activity/Vol] 84 U/L Normal 46-116 [facility] Comment on above: Performed By: #### B 12FOL, VITAD, IRON #### [facility] [address] [place] [address] Dr. Ekta Funk ALT [Catalytic activity/Vol] 29 U/L Normal 14-59 [facility] Comment on above: Performed By: #### B 12FOL, VITAD, IRON #### [facility] [address] [place] [address] Dr. Ekta Funk Anion gap [Moles/Vol] 15.9 mmol/L Normal [facility] Comment on above: Performed By: #### B 12FOL, VITAD, IRON #### [facility] [address] [place] [address] Dr. Ekta Funk AST [Catalytic activity/Vol] 15 U/L Normal 15-37 [facility] Comment on above: Performed By: #### B 12FOL, VITAD, IRON #### [facility] [address] [place] [address] Dr. Ekta Funk Bilirubin [Mass/Vol] 0.3 mg/dL Normal 0.2-1.0 [facility] Comment on above: Performed By: #### B 12FOL, VITAD, IRON #### [facility] [address] [address] [address] Ekta Funk Calcium [Mass/Vol] 8.9 mg/dL Normal 8.5-10.1 [facility] Comment on above: Performed By: #### B 12FOL, VITAD, IRON #### [facility] [address] [address] [address] Ekta Funk Chloride [Moles/Vol] 103 mmol/L Normal 98-107 [facility] Comment on above: Performed By: #### B 12FOL, VITAD, IRON #### [facility] [address] [place] [address] Dr. Ekta Funk CO2 [Moles/Vol] 26.3 mmol/L Normal 21.0-32.0 [facility] Comment on above: Performed By: #### B 12FOL, VITAD, IRON #### [facility] [address] [place] [address] Dr. Ekta Funk Creatinine [Mass/Vol] 1.99 mg/dL Critically high 0.55-1.02 [facility] Comment on above: Performed By: #### B 12FOL, VITAD, IRON #### [facility] [address] [place] [address] Dr. Ekta Funk EGFR-AF GEORGIAN 30 mL/min/1.73m2 Critically low >=60 [facility] Comment on above: Performed By: #### B 12FOL, VITAD, IRON #### [facility] [address] [address] [address] Ekta Funk EGFR-NON AF GEORGIAN 24 mL/min/1.73m2 Critically low >=60 [facility] Comment on above: Performed By: #### B 12FOL, VITAD, IRON #### [facility] [address] [address] [address] Ekta Funk Globulin (S) [Mass/Vol] 4.1 g/dL Normal [facility] Comment on above: Performed By: #### B 12FOL, VITAD, IRON #### [facility] [address] [address] [address] Ekta Funk Glucose [Mass/Vol] 115 mg/dL Critically high 74-[address] [facility] Comment on above: Performed By: #### B 12FOL, VITAD, IRON #### [facility] [address] [place] [address] Dr. Ekta Funk Potassium [Moles/Vol] 5.2 mmol/L Critically high 3.5-5.1 [facility] Comment on above: Performed By: #### B 12FOL, VITAD, IRON #### [facility] [address] [place] [address] Dr. Ekta Funk Protein [Mass/Vol] 6.9 g/dL Normal 6.4-8.2 [facility] Comment on above: Performed By: #### B 12FOL, VITAD, IRON #### [facility] [address] [place] [address] Dr. Ekta Funk Sodium [Moles/Vol] 140 mmol/L Normal 136-145 [facility] Comment on above: Performed By: #### B 12FOL, VITAD, IRON #### [facility] [address] [place] [address] Dr. Ekta Funk Urea nitrogen [Mass/Vol] 45.0 mg/dL Critically high 7.0-18.0 [facility] Comment on above: Performed By: #### B 12FOL, VITAD, IRON #### [facility] [address] [place] [address] Dr. Ekta Funk Urea nitrogen/Creatinine [Mass ratio] 22.6 mg/mg Normal [facility] Comment on above: Performed By: #### B 12FOL, VITAD, IRON #### [facility] [address] [place] [address] Dr. Ekta Funk T4on 10-20-2022 T4 [Mass/Vol] 6.10 ug/dL Normal 4.80-13.90 [facility] Comment on above: Performed By: #### B 12FOL, VITAD, IRON #### [facility] [address] [place] [address] Dr. Ekta Funk TSHon 10-20-2022 TSH 1.336 uIU/mL Normal 0.358-3.740 [facility] Comment on above: Performed By: #### B 12FOL, VITAD, IRON #### [facility] [address] [place] [address] Dr. Ekta Funk UA RANDOM W/MICROSCOPICon BACTERIA TRACE Abnormal NONE SEEN [facility] Comment on above: Performed By: #### B 12FOL, VITAD, IRON #### [facility] [address] [place] [address] Dr. Ekta Funk Bilirubin Ql (U) Negative Normal NEGATIVE [facility] Comment on above: Performed By: #### B 12FOL, VITAD, IRON #### [facility] [address] [place] [address] Dr. Ekta Funk CAST NONE SEEN Normal NONE SEEN [facility] Comment on above: Performed By: #### B 12FOL, VITAD, IRON #### [facility] [address] [place] [address] Dr. Ekta Funk Clarity (U) CLEAR Normal CLEAR [facility] Comment on above: Performed By: #### B 12FOL, VITAD, IRON #### [facility] [address] [place] [address] Dr. Ekta Funk Color (U) LT. YELLOW Normal YELLOW [facility] Comment on above: Performed By: #### B 12FOL, VITAD, IRON #### [facility] [address] [place] [address] Dr. Ekta Funk Crystals LM Nom (Urine sed) NONE SEEN Normal NONE SEEN [facility] Comment on above: Performed By: #### B 12FOL, VITAD, IRON #### [facility] [address] [place] [address] Dr. Ekta Funk Epithelial cells LM Ql (Urine sed) RARE Normal NONE SEEN /RARE [facility] Comment on above: Performed By: #### B 12FOL, VITAD, IRON #### [facility] [address] [address] [address] Ekta Funk Glucose Ql (U) Negative Normal NEGATIVE [facility] Comment on above: Performed By: #### B 12FOL, VITAD, IRON #### [facility] [address] [address] [address] Ekta Funk Hemoglobin Ql (U) Negative Normal NEGATIVE [facility] Comment on above: Performed By: #### B 12FOL, VITAD, IRON #### [facility] [address] [address] [address] Ekta Funk Ketones Ql (U) Negative Normal NEGATIVE [facility] Comment on above: Performed By: #### B 12FOL, VITAD, IRON #### [facility] [address] [place] [address] Dr. Ekta Funk LEUKOCYTES Negative Normal NEGATIVE [facility] Comment on above: Performed By: #### B 12FOL, VITAD, IRON #### [facility] [address] [address] [address] Ekta Funk MUCOUS NONE SEEN Normal NONE SEEN [facility] Comment on above: Performed By: #### B 12FOL, VITAD, IRON #### [facility] [address] [place] [address] Dr. Ekta Funk Nitrite Ql (U) Negative Normal NEGATIVE [facility] Comment on above: Performed By: #### B 12FOL, VITAD, IRON #### [facility] [address] [place] [address] Dr. Ekta Funk pH (U) 6.0 [pH] Normal 5-9 [facility] Comment on above: Performed By: #### B 12FOL, VITAD, IRON #### [facility] [address] [place] [address] Dr. Ekta Funk RBC 0-2 Normal 0-2 [facility] Comment on above: Performed By: #### B 12FOL, VITAD, IRON #### [facility] [address] [address] [address] Ekta Funk SPEC GRAVITY <=1.005 Abnormal 1.005-<=1.025 [facility] Comment on above: Performed By: #### B 12FOL, VITAD, IRON #### [facility] [address] [place] [address] Dr. Ekta Funk UA PROTEIN Negative Normal NEGATIVE/ TRACE [facility] Comment on above: Performed By: #### B 12FOL, VITAD, IRON #### [facility] [address] [place] [address] Dr. Ekta Funk Urobilinogen Qn (U) 0.2 {Ivan'U}/dL Normal 0.2 - 1. 0 [facility] Comment on above: Performed By: #### B 12FOL, VITAD, IRON #### [facility] [address] [place] [address] Dr. Ekta Funk WBC NONE SEEN Normal NONE SEEN [facility] Comment on above: Performed By: #### B 12FOL, VITAD, IRON #### [facility] [address] [place] [address] Dr. Ekta Funk BNPon 10-19-2022 Natriuretic peptide B (Bld) [Mass/Vol] 1355.0 pg/mL Critically high <=900.0 [facility] Comment on above: Performed By: #### B 12FOL, VITAD, IRON #### [facility] [address] [place] [address] Dr. Ekta Funk INSULINon 10-19-2022 Insulin 12.4 uIU/mL Normal 2.6-24.9 [facility] Comment on above: Performed By: #### I NSULIN #### [facility] [address] [place] [address] Dr. Ekta Funk OCC BLD IMMUNO SCREENon OCCULT BLOOD Positive Abnormal NEGATIVE [facility] Comment on above: Performed By: #### B 12FOL, VITAD, IRON #### [facility] [address] [place] [address] Dr. Ekta Funk PROF CHEM 8 (BAS METB)on Anion gap [Moles/Vol] 15.8 mmol/L Normal [facility] Comment on above: Performed By: #### B 12FOL, VITAD, IRON #### [facility] [address] [address] [address] Ekta Funk Calcium [Mass/Vol] 8.8 mg/dL Normal 8.5-10.1 [facility] Comment on above: Performed By: #### B 12FOL, VITAD, IRON #### [facility] [address] [address] [address] Ekta Funk Chloride [Moles/Vol] 107 mmol/L Normal 98-107 [facility] Comment on above: Performed By: #### B 12FOL, VITAD, IRON #### [facility] [address] [place] [address] Dr. Ekta Funk CO2 [Moles/Vol] 21.5 mmol/L Normal 21.0-32.0 [facility] Comment on above: Performed By: #### B 12FOL, VITAD, IRON #### [facility] [address] [address] [address] Ekta Funk Creatinine [Mass/Vol] 1.62 mg/dL Critically high 0.55-1.02 [facility] Comment on above: Performed By: #### B 12FOL, VITAD, IRON #### [facility] [address] [address] [address] Ekta Funk EGFR-AF GEORGIAN 38 mL/min/1.73m2 Critically low >=60 [facility] Comment on above: Performed By: #### B 12FOL, VITAD, IRON #### [facility] [address] [address] [address] Ekta Funk EGFR-NON AF GEORGIAN 31 mL/min/1.73m2 Critically low >=60 [facility] Comment on above: Performed By: #### B 12FOL, VITAD, IRON #### [facility] [address] [address] [address] Ekta Funk Glucose [Mass/Vol] 134 mg/dL Critically high 74-[address] [facility] Comment on above: Performed By: #### B 12FOL, VITAD, IRON #### [facility] [address] [address] [address] Ekta Funk Potassium [Moles/Vol] 5.3 mmol/L Critically high 3.5-5.1 [facility] Comment on above: Performed By: #### B 12FOL, VITAD, IRON #### [facility] [address] [address] [address] Ekta Funk Sodium [Moles/Vol] 139 mmol/L Normal 136-145 [facility] Comment on above: Performed By: #### B 12FOL, VITAD, IRON #### [facility] [address] [place] [address] Dr. Ekta Funk Urea nitrogen [Mass/Vol] 37.0 mg/dL Critically high 7.0-18.0 [facility] Comment on above: Performed By: #### B 12FOL, VITAD, IRON #### [facility] [address] [place] [address] Dr. Ekta Funk Urea nitrogen/Creatinine [Mass ratio] 22.8 mg/mg Normal [facility] Comment on above: Performed By: #### B 12FOL, VITAD, IRON #### [facility] [address] [place] [address] Dr. Ekta Funk TROPONIN, HIGH SENSITIVITYon 10-19-2022 HSTROP 53.2 pg/mL Critically high 4.0-51.3 [facility] Comment on above: Result Comment: CUT- OFF POINTS HAVE BEEN ESTABLISHED BASED ON THE FOURTH UNIVERSAL DEFINITIONS OF MYOCARDIAL INFARCTION. THE UPPER REFERENCE LIMIT (URL) OF TROPONIN, DEFINED THE 99TH PERCENTILE OF cTnI DISTRIBUTION IN A REFERENCE POPULATION, HAS BEEN CONFIRMED THE DECISION THRESHOLD FOR [place] DIAGNOSIS. Performed By: #### B 12FOL, VITAD, IRON #### [facility] [address] [place] [address] Dr. Ekta Funk BNPon 10-18-2022 Natriuretic peptide B (Bld) [Mass/Vol] 1386.0 pg/mL Critically high <=900.0 [facility] Comment on above: Performed By: #### C VDTBH #### [facility] [address] [address] [address] Ekta Funk CARDIAC BRITTANIE ADMITon 023 CK [Catalytic activity/Vol] 34 U/L Normal 26-192 [facility] Comment on above: Performed By: #### C VDTBH #### [facility] [address] [address] [address] Ekta Funk CK.MB [Mass/Vol] 1.43 ng/mL Normal <=3.60 [facility] Comment on above: Performed By: #### C VDTBH #### [facility] [address] [address] [address] Ekta Funk HSTROP 74.1 pg/mL Critically high 4.0-51.3 [facility] Comment on above: Result Comment: CUT- OFF POINTS HAVE BEEN ESTABLISHED BASED ON THE FOURTH UNIVERSAL DEFINITIONS OF MYOCARDIAL INFARCTION. THE UPPER REFERENCE LIMIT (URL) OF TROPONIN, DEFINED THE 99TH PERCENTILE OF cTnI DISTRIBUTION IN A REFERENCE POPULATION, HAS BEEN CONFIRMED THE DECISION THRESHOLD FOR [place] DIAGNOSIS. Performed By: #### C VDTBH #### [facility] [address] [place] [address] Dr. Ekta Funk EEVLYN 52 ng/mL Normal 9-82 [facility] Comment on above: Performed By: #### C VDTBH #### [facility] [address] [address] [address] Ekta Funk CBC AUTO DIFFon 10-18-2022 BASO # 0.0 103/ul Normal 0.0-0.1 [facility] Comment on above: Performed By: #### C BC #### [facility] [address] [place] [address] Dr. Ekta Funk Basophils/100 WBC (Bld) 0.3 % Normal 0.2-2.0 [facility] Comment on above: Performed By: #### C BC #### [facility] [address] [address] [address] Ekta Funk EO # 0.1 103/ul Normal 0.0-0.7 [facility] Comment on above: Performed By: #### C BC #### [facility] [address] [place] [address] Dr. Ekta Funk Eosinophils/100 WBC (Bld) 0.9 % Normal 0.9-7.0 [facility] Comment on above: Performed By: #### C BC #### [facility] [address] [place] [address] Dr. Ekta Funk Erythrocyte distribution width (RBC) [Ratio] 13.2 % Normal 11.0-15.0 [facility] Comment on above: Performed By: #### C BC #### [facility] [address] [place] [address] Dr. Ekta Funk Hematocrit (Bld) [Volume fraction] 38.9 % Normal 36.0-48.0 [facility] Comment on above: Performed By: #### C BC #### [facility] [address] [place] [address] Dr. Ekta Funk Hemoglobin (Bld) [Mass/Vol] 12.4 g/dL Normal 12.0-16.0 [facility] Comment on above: Performed By: #### C BC #### [facility] [address] [place] [address] Dr. Ekta Funk IG # 0.08 10e3/ul Critically high 0.00-0.03 [facility] Comment on above: Performed By: #### C BC #### [facility] [address] [place] [address] Dr. Ekta Funk IG % 0.5 % Normal 0.0-0.5 [facility] Comment on above: Performed By: #### C BC #### [facility] [address] [place] [address] Dr. Ekta Funk LYMPH # 1.4 103/ul Normal 1.2-3.8 [facility] Comment on above: Performed By: #### C BC #### [facility] [address] [place] [address] Dr. Ekta Funk Lymphocytes/100 WBC (Bld) 9.6 % Critically low 20.5-60.0 [facility] Comment on above: Performed By: #### C BC #### [facility] [address] [place] [address] Dr. Ekta Funk MANUAL DIFF REQ NO Normal [facility] Comment on above: Performed By: #### C BC #### [facility] [address] [place] [address] Dr. Ekta Funk MCH (RBC) [Entitic mass] 32.3 pg Normal 26.7-34.0 [facility] Comment on above: Performed By: #### C BC #### [facility] [address] [place] [address] Dr. Ekta Funk MCHC (RBC) [Mass/Vol] 31.9 g/dL Normal 29.9-35.2 [facility] Comment on above: Performed By: #### C BC #### [facility] [address] [place] [address] Dr. Ekta Funk MCV (RBC) [Entitic vol] 101.3 fL Critically high 81.0-99.0 [facility] Comment on above: Performed By: #### C BC #### [facility] [address] [place] [address] Dr. Ekta Funk MONO # 0.9 103/ul Critically high 0.3-0.8 [facility] Comment on above: Performed By: #### C BC #### [facility] [address] [place] [address] Dr. Ekta Funk Monocytes/100 WBC (Bld) 6.3 % Normal 1.7-12.0 [facility] Comment on above: Performed By: #### C BC #### [facility] [address] [place] [address] Dr. Ekta Funk NEUT # 12.0 103/ul Critically high 1.4-6.5 [facility] Comment on above: Performed By: #### C BC #### [facility] [address] [place] [address] Dr. Ekta Funk Neutrophils/100 WBC (Bld) 82.4 % Critically high 43.0-75.0 [facility] Comment on above: Performed By: #### C BC #### [facility] [address] [address] [address] Ekta Funk Platelet mean volume (Bld) [Entitic vol] 9.7 fL Normal 9.5-13.5 [facility] Comment on above: Performed By: #### C BC #### [facility] [address] [address] [address] Ekta Funk PLT 176 103/ul Normal 150-450 [facility] Comment on above: Performed By: #### C BC #### [facility] [address] [address] [address] Ekta Funk RBC 3.84 106/ul Critically low 4.20-5.40 [facility] Comment on above: Performed By: #### C BC #### [facility] [address] [address] [address] Ekta Funk WBC 14.6 103/ul Critically high 4.0-11.0 [facility] Comment on above: Performed By: #### C BC #### [facility] [address] [address] [address] Ekta Funk FREE THYROXINE INDEX T7on FTI 2.34 Normal 1.30-4.50 [facility] Comment on above: Performed By: #### C VDTBH #### [facility] [address] [place] [address] Dr. Ekta Funk T3U 36.0 % Normal 30.0-39.0 [facility] Comment on above: Performed By: #### C VDTBH #### [facility] [address] [address] [address] Ekta Funk T4 [Mass/Vol] 6.50 ug/dL Normal 4.80-13.90 [facility] Comment on above: Performed By: #### C VDTBH #### [facility] [address] [place] [address] Dr. Ekta Funk GLYCOHEMOGLOBIN A1Con 2022 ADA RECOMMENDATION SEE BELOW Normal [facility] Comment on above: Result Comment: ADA RECOMMENDED LIMIT 4.0 - 6.0 ADA THERAPEUTIC TARGET < 7.0 ACTION SUGGESTED > 7.0 Performed By: #### B 12FOL, VITAD, IRON #### [facility] [address] [place] [address] Dr. Ekta Funk Glucose [Mass/Vol] 140 mg/dL Normal [facility] Comment on above: Performed By: #### B 12FOL, VITAD, IRON #### [facility] [address] [address] [address] Ekta Funk HbA1c (Bld) [Mass fraction] 6.5 % Critically high 4.5-6.2 [facility] Comment on above: Performed By: #### B 12FOL, VITAD, IRON #### [facility] [address] [place] [address] Dr. Ekta Funk IRONon 10-18-2022 Iron [Mass/Vol] 62.0 ug/dL Normal 50.0-170.0 [facility] Comment on above: Performed By: #### B 12FOL, VITAD, IRON #### [facility] [address] [place] [address] Dr. Ekta Funk LIPID PROFILEon 10-18-2022 CHOL-HDL RATIO NORM SEE BELOW Normal [facility] Comment on above: Result Comment: 3.3 - 4.4 LOW RISK 4.4 - 7.1 AVERAGE RISK 7.1 - 11.0 MODERATE RISK >11.0 HIGH RISK Performed By: #### C VDTBH #### [facility] [address] [place] [address] Dr. Ekta Funk Cholesterol [Mass/Vol] 242 mg/dL Critically high <=200 [facility] Comment on above: Performed By: #### C VDTBH #### [facility] [address] [place] [address] Dr. Ekta Funk Cholesterol in HDL [Mass/Vol] 74 mg/dL Critically high 40-60 [facility] Comment on above: Performed By: #### C VDTBH #### [facility] [address] [place] [address] Dr. Ekta Funk Cholesterol in LDL [Mass/Vol] 139.4 mg/dL Normal [facility] Comment on above: Performed By: #### C VDTBH #### [facility] [address] [place] [address] Dr. Ekta Funk Cholesterol.total/Ch olesterol in HDL [Mass ratio] 3.3 {ratio} Normal [facility] Comment on above: Performed By: #### C VDTBH #### [facility] [address] [place] [address] Dr. Ekta Funk HDL NORMAL > or = 60 mg/dl - LO W CARDIOVASCULAR RISK <40 mg/dl - HIGH CARDIOVASCULAR RISK Normal [facility] Comment on above: Performed By: #### C VDTBH #### [facility] [address] [place] [address] Dr. Ekta Funk LDL CALC NORMAL SEE BELOW Normal [facility] Comment on above: Result Comment: <100 mg/dl OPTIMAL 100 - 129 mg/dl NEAR OR ABOVE OPTIMAL 130 - 159 mg/dl BORDERLINE HIGH 160 - 189 mg/dl HIGH >190 mg/dl VERY HIGH Performed By: #### C VDTBH #### [facility] [address] [place] [address] Dr. Ekta Funk Triglyceride [Mass/Vol] 143 mg/dL Normal <=150 [facility] Comment on above: Performed By: #### C VDTBH #### [facility] [address] [place] [address] Dr. Ekta Funk VLDL CALC 28.6 mg/dL Normal [facility] Comment on above: Performed By: #### C VDTBH #### [facility] [address] [place] [address] Dr. Ekta Funk PROF 14(COMP METB)on 023 Albumin [Mass/Vol] 2.8 g/dL Critically low 3.4-5.0 [facility] Comment on above: Performed By: #### C VDTBH #### [facility] [address] [place] [address] Dr. Ekta Funk Albumin/Globulin [Mass ratio] 0.7 {ratio} Normal [facility] Comment on above: Performed By: #### C VDTBH #### [facility] [address] [address] [address] Ekta Funk ALP [Catalytic activity/Vol] 90 U/L Normal 46-116 [facility] Comment on above: Performed By: #### C VDTBH #### [facility] [address] [place] [address] Dr. Ekta Funk ALT [Catalytic activity/Vol] 26 U/L Normal 14-59 [facility] Comment on above: Performed By: #### C VDTBH #### [facility] [address] [place] [address] [address] Ekta Funk Anion gap [Moles/Vol] 14.5 mmol/L Normal [facility] Comment on above: Performed By: #### C VDTBH #### [facility] [address] [place] [address] Dr. Ekta Funk AST [Catalytic activity/Vol] 14 U/L Critically low 15-37 [facility] Comment on above: Performed By: #### C VDTBH #### [facility] [address] [place] [address] [address] Ekta Funk Bilirubin [Mass/Vol] 0.4 mg/dL Normal 0.2-1.0 [facility] Comment on above: Performed By: #### C VDTBH #### [facility] [address] [place] [address] [address] Ekta Funk Calcium [Mass/Vol] 8.9 mg/dL Normal 8.5-10.1 [facility] Comment on above: Performed By: #### C VDTBH #### [facility] [address] [place] [address] [address] Ekta Funk Chloride [Moles/Vol] 106 mmol/L Normal 98-107 [facility] Comment on above: Performed By: #### C VDTBH #### [facility] [address] [place] [address] [address] Ekta Funk CO2 [Moles/Vol] 23.5 mmol/L Normal 21.0-32.0 [facility] Comment on above: Performed By: #### C VDTBH #### [facility] [address] [place] [address] [address] Ekta Funk Creatinine [Mass/Vol] 1.70 mg/dL Critically high 0.55-1.02 [facility] Comment on above: Performed By: #### C VDTBH #### [facility] [address] [place] [address] [address] Ekta Funk EGFR-AF GEORGIAN 36 mL/min/1.73m2 Critically low >=60 [facility] Comment on above: Performed By: #### C VDTBH #### [facility] [address] [place] [address] [address] Ekta Funk EGFR-NON AF GEORGIAN 29 mL/min/1.73m2 Critically low >=60 [facility] Comment on above: Performed By: #### C VDTBH #### [facility] [address] [place] [address] [address] Ekta Funk Globulin (S) [Mass/Vol] 4.0 g/dL Normal [facility] Comment on above: Performed By: #### C VDTBH #### [facility] [address] [place] [address] [address] Ekta Funk Glucose [Mass/Vol] 99 mg/dL Normal 74-106 [facility] Comment on above: Performed By: #### C VDTBH #### [facility] [address] [place] [address] [address] Ekta Funk Potassium [Moles/Vol] 5.0 mmol/L Normal 3.5-5.1 [facility] Comment on above: Performed By: #### C VDTBH #### [facility] [address] [place] [address] [address] Ekta Funk Protein [Mass/Vol] 6.8 g/dL Normal 6.4-8.2 [facility] Comment on above: Performed By: #### C VDTBH #### [facility] [address] [place] [address] [address] Ekta Funk Sodium [Moles/Vol] 139 mmol/L Normal 136-145 [facility] Comment on above: Performed By: #### C VDTBH #### [facility] [address] [place] [address] [address] Ekta Funk Urea nitrogen [Mass/Vol] 36.0 mg/dL Critically high 7.0-18.0 [facility] Comment on above: Performed By: #### C VDTBH #### [facility] [address] [place] [address] Dr. Ekta Funk Urea nitrogen/Creatinine [Mass ratio] 21.2 mg/mg Normal [facility] Comment on above: Performed By: #### C VDTBH #### [facility] [address] [place] [address] Dr. Ekta Funk TSHon 10-18-2022 TSH 0.910 uIU/mL Normal 0.358-3.740 [facility] Comment on above: Performed By: #### C VDTBH #### [facility] [address] [place] [address] Dr. Ekta Funk Covid-19 PCR ([facility])on 09-10 SARS-CoV-2 (COVID-19) RNA GANESH+probe Ql (Unsp spec) Detected Abnormal NOT DETECTED [facility] Comment on above: Result Comment: This test is not yet approved or cleared by the [place] FDA. When there are no FDA-approved or cleared tests available, and other criteria are met, FDA can make tests available under an emergency access mechanism called an Emergency Use Authorization (EUA). The EUA for this test is supported by the Insulator Helper of Health and Human Service's declaration that [...] used). Performed By: #### C MP #### [facility] [address] [place] [address] Dr. Ekta Funk INFLUENZA A AND B AGon 09-25 INFLUANEGH SEE BELOW Normal [facility] Comment on above: Result Comment: Nega tive for Flu A protein angiten. Infection due to Flu A cannot be ruled out. Flu A angiten in the sample may be below the detection limit of the test. Performed By: #### B 12FOL, VITAD, IRON #### [facility] [address] [place] [address] Dr. Ekta Funk [facility] SEE BELOW Normal [facility] Comment on above: Result Comment: Nega tive for Flu B protein antigen. Infection due to Flu B cannot be ruled out. Flu B antigen in the sample may be below the detection limit of the test. Performed By: #### B 12FOL, VITAD, IRON #### [facility] [address] [place] [address] Dr. Ekta Funk INFLUENZA A AG Negative Normal NEGATIVE SEE COMMENT [facility] Comment on above: Performed By: #### B 12FOL, VITAD, IRON #### [facility] [address] [place] [address] Dr. Ekta Funk INFLUENZA B AG Negative Normal NEGATIVE SEE COMMENT [facility] Comment on above: Performed By: #### B 12FOL, VITAD, IRON #### [facility] [address] [place] [address] Dr. Ekta Funk US CAROTID ART BILon 16-2 022 US CAROTID ART ANGELIQUE EXAMINATION: US [...] by: GODWIN BECK Date: 2022-05-26 16:06 Normal [facility] MRI BRAIN WO CONon 2 MRI [...] by: VISHNU MARIE Date: 2022-05-25 10:45 Normal [facility] ECHOCARDIO M/2D COMPLETEon 0 05-24-2022 ECHOCARDIO M/2D COMPLETE Patient: SHEILA MAC Exam Date: 05/24/2022 : 1950 Gender:F Ordering : DR KRZYSZTOF HARP . Admission #: [id number] Family : Order #: [id number] CLICK HERE TO VIEW EXAM ECHOCARDIOGRAM REPORT [...] M.D. on 05/24/2022 at 14:45 Normal [facility] BASIC METABOLIC PANELon - Calcium mass conc 9.4 mg/dL Normal 8.6-10.3 [facility] Comment on above: Order Comment: No: D o not add to previous draw Performed By: #### 0 0071 #### [facility] [address] [place] [address], [place] Chloride molar conc 108 mmol/L High 98-107 [facility] Comment on above: Order Comment: No: D o not add to previous draw Performed By: #### 0 0071 #### [facility] [address] [place] [address], [place] CO2 molar conc 22 mmol/L Normal 21-31 [facility] Comment on above: Order Comment: No: D o not add to previous draw Performed By: #### 0 0071 #### [facility] [address] [place] [address], [place] Creatinine mass conc 1.18 mg/dL Normal 0.60-1.20 [facility] Comment on above: Order Comment: No: D o not add to previous draw Performed By: #### 0 0071 #### [facility] [address] [place] [address], [place] GFR/1.73 sq M predicted among blacks MDRD vol rate/area (S/P/Bld) 55 ml/min/1.73sq m Abnormal >60 [facility] Comment on above: Order Comment: No: D o not add to previous draw Performed By: #### 0 0071 #### [facility] [address] [place] [address], [place] GFR/1.73 sq M predicted among non-blacks MDRD vol rate/area (S/P/Bld) 45 ml/min/1.73sq m Abnormal >60 [facility] Comment on above: Order Comment: No: D o not add to previous draw Performed By: #### 0 0071 #### [facility] [address] [place] [address], [facility] Glucose mass conc 166 mg/dL High 70-100 [facility] Comment on above: Order Comment: No: D o not add to previous draw Performed By: #### 0 0071 #### [facility] [address] [place] [address], [facility] Potassium molar conc 4.1 mmol/L Normal 3.5-5.1 [facility] Comment on above: Order Comment: No: D o not add to previous draw Performed By: #### 0 0071 #### [facility] [address] [place] [address], [facility] Sodium molar conc 140 mmol/L Normal 136-145 [facility] Comment on above: Order Comment: No: D o not add to previous draw Performed By: #### 0 0071 #### [facility] [address] [place] [address], [facility] Urea nitrogen mass conc 21 mg/dL Normal 7-25 [facility] Comment on above: Order Comment: No: D o not add to previous draw Performed By: #### 0 0071 #### [facility] [address] CBC COMPLETE BLOOD COUNTon 0 - Erythrocyte distribution width Ratio (RBC) 12.9 % Normal 11.5-15.0 [facility] Comment on above: Order Comment: No: D o not add to previous draw Performed By: #### 5 [id number] #### [facility] [address] [place] [id number], [facility] Hematocrit Volume Fraction (Bld) 36.7 % Normal 36.0-45.0 [facility] Comment on above: Order Comment: No: D o not add to previous draw Performed By: #### 5 [id number] #### [facility] [address] Hemoglobin mass conc (Bld) 12.4 g/dL Normal 12.0-15.0 [facility] Comment on above: Order Comment: No: D o not add to previous draw Performed By: #### 5 [id number] #### [facility] [address] [place] [address], [facility] MCH Entitic mass (RBC) 31.2 pg Normal 27.0-33.0 [facility] Comment on above: Order Comment: No: D o not add to previous draw Performed By: #### 5 [id number] #### [facility] [address] [place] [address], [facility] MCHC mass conc (RBC) 33.8 g/dL Normal 32.0-35.0 [facility] Comment on above: Order Comment: No: D o not add to previous draw Performed By: #### 5 [id number] #### [facility] [address] MCV Entitic volume (RBC) 92.4 fL Normal 82.0-98.0 [facility] Comment on above: Order Comment: No: D o not add to previous draw Performed By: #### 5 [id number] #### [facility] [address] Nucleated RBC/100 WBC Ratio (Bld) 0 % Normal 0-0 [facility] Comment on above: Order Comment: No: D o not add to previous draw Performed By: #### 5 [id number] #### [facility] [address] [facility] [place] [address], [facility] PLAT CNT 227 10*3/uL Normal 150-400 [facility] Comment on above: Order Comment: No: D o not add to previous draw Performed By: #### 5 [id number] #### [facility] [address] [place] [address], [facility] RBC #/vol (Bld) 3.97 10*6/uL Normal 3.80-5.00 [facility] Comment on above: Order Comment: No: D o not add to previous draw Performed By: #### 5 [id number] #### [facility] [address] [place], [place] [id number] [place] [address] WBC #/vol (Bld) 5.55 10*3/uL Normal 4.00-10.60 [facility] Comment on above: Order Comment: No: D o not add to previous draw Performed By: #### 5 [id number] #### [facility] [address] [facility]. [address] Cardiovascular Lab Reporton 11-20-2018 Cardiovascular Lab Report [facility] MR #: [id number] Department of Physician: Bong Bolivar Shellie Gaspar M.D. Division of Service Date: 11/20/2018 Cardiology Birthdate: 1950 Adult Cardiovascular Room #: 3AB [id number] [facility] [address] [place] [address] Cardiovascular Laboratory Report INDICATION: The patient is a 68-year-old woman who was evaluated in Cardiology Clinic because of new onset symptoms of shortness of breath on mild exertion. Her stress test showed evidence of slxqd-gl-hlscrnal area of inferoapical ischemia; because of that, [...] was performed followed by upsizing to a 6-Montserratian x 11 cm sheath. Access was also obtained using the same technique in the right common femoral vein and a 6-Montserratian x 11 cm sheath was placed. A 6-Montserratian Michel catheter was used for right heart catheterization with measurement of pressures and calculation of cardiac output using the estimated Ivory method. Michel catheter was removed. Bilateral selective coronary angiography was then performed using 6-Montserratian JL4 and JR4 diagnostic catheters. Catheters were [...] A Bong Gaspar M.D. Date Dict: 11/20/2018/09:00 A/Bong Gaspar M.D. Date Trans: 11/20/2018 09:31 A/alvina [id number] cc: Krzysztof Harp M.D. [address] [facility] [address] Normal [facility] BASIC METABOLIC PANELon 03-1 2-2019 Calcium mass conc 9.5 mg/dL Normal 8.6-10.3 [facility] Comment on above: Order Comment: No: D o not add to previous draw Performed By: #### 0 0071 #### [facility] [address] [place] [address], [place] Chloride molar conc 105 mmol/L Normal 98-107 [facility] Comment on above: Order Comment: No: D o not add to previous draw Performed By: #### 0 0071 #### [facility] [address] [place] [address], [place] CO2 molar conc 24 mmol/L Normal 21-31 [facility] Comment on above: Order Comment: No: D o not add to previous draw Performed By: #### 0 0071 #### [facility] [address] [place] [address], [place] Creatinine mass conc 1.42 mg/dL High 0.60-1.20 [facility] Comment on above: Order Comment: No: D o not add to previous draw Performed By: #### 0 0071 #### [facility] [address] [place] [address], [place] GFR/1.73 sq M predicted among blacks MDRD vol rate/area (S/P/Bld) 45 ml/min/1.73sq m Abnormal >60 [facility] Comment on above: Order Comment: No: D o not add to previous draw Performed By: #### 0 0071 #### [facility] [address] [place] [address], [place] GFR/1.73 sq M predicted among non-blacks MDRD vol rate/area (S/P/Bld) 36 ml/min/1.73sq m Abnormal >60 [facility] Comment on above: Order Comment: No: D o not add to previous draw Performed By: #### 0 0071 #### [facility] [address] [place] [address], [facility] Glucose mass conc 86 mg/dL Normal 70-100 [facility] Comment on above: Order Comment: No: D o not add to previous draw Performed By: #### 0 0071 #### [facility] [address] [place] [address], [facility] Potassium molar conc 4.2 mmol/L Normal 3.5-5.1 [facility] Comment on above: Order Comment: No: D o not add to previous draw Performed By: #### 0 0071 #### [facility] [address] [place] [address], [facility] Sodium molar conc 138 mmol/L Normal 136-145 [facility] Comment on above: Order Comment: No: D o not add to previous draw Performed By: #### 0 0071 #### [facility] [address] [place] [address], [facility] Urea nitrogen mass conc 19 mg/dL Normal 7-25 [facility] Comment on above: Order Comment: No: D o not add to previous draw Performed By: #### 0 0071 #### [facility] [address] [place] [address], [facility] CBC COMPLETE BLOOD COUNTon 0 - Erythrocyte distribution width Ratio (RBC) 13.0 % Normal 11.5-15.0 [facility] Comment on above: Order Comment: No: D o not add to previous draw Performed By: #### 5 [id number] #### [facility] [address] [place] [address], [place] Hematocrit Volume Fraction (Bld) 38.3 % Normal 36.0-45.0 [facility] Comment on above: Order Comment: No: D o not add to previous draw Performed By: #### 5 [id number] #### [facility] [address] [place] [address], [facility] Hemoglobin mass conc (Bld) 12.6 g/dL Normal 12.0-15.0 [facility] Comment on above: Order Comment: No: D o not add to previous draw Performed By: #### 5 [id number] #### [facility] [address] MCH Entitic mass (RBC) 31.1 pg Normal 27.0-33.0 [facility] Comment on above: Order Comment: No: D o not add to previous draw Performed By: #### 5 [id number] #### [facility] [address] MCHC mass conc (RBC) 32.9 g/dL Normal 32.0-35.0 [facility] Comment on above: Order Comment: No: D o not add to previous draw Performed By: #### 5 [id number] #### [facility] [address] [facility] [address] MCV Entitic volume (RBC) 94.6 fL Normal 82.0-98.0 [facility] Comment on above: Order Comment: No: D o not add to previous draw Performed By: #### 5 [id number] #### [facility] [address] [facility]. [address] Nucleated RBC/100 WBC Ratio (Bld) 0 % Normal 0-0 [facility] Comment on above: Order Comment: No: D o not add to previous draw Performed By: #### 5 [id number] #### [facility] [address] [facility] [place] [address], [facility] PLAT CNT 266 10*3/uL Normal 150-400 [facility] Comment on above: Order Comment: No: D o not add to previous draw Performed By: #### 5 0608 #### [facility] [address] [place] [address], [facility] RBC #/vol (Bld) 4.05 10*6/uL Normal 3.80-5.00 [facility] Comment on above: Order Comment: No: D o not add to previous draw Performed By: #### 5 0608 #### [facility] [address] [facility] [place] [address], [facility] WBC #/vol (Bld) 9.01 10*3/uL Normal 4.00-10.60 [facility] Comment on above: Order Comment: No: D o not add to previous draw Performed By: #### 5 [id number] #### [facility] [address] [facility] [address] PROTHROMBIN TIMEon 9 INR Coag RelTime (PPP) 1.07 {INR} Normal 0.91-1.16 [facility] Comment on above: Order Comment: No: D [...] 1995;108:[id number]. Performed By: #### 5 [id number] #### [facility] [address] Prothrombin time (PT) Coag time (PPP) 13.9 s Normal 12.3-14.8 [facility] Comment on above: Order Comment: No: D o not add to previous draw Result Comment: ALL RESULTS MUST BE INTERPRETED WITH RESPECT TO BLOOD DRAWING ARTIFACT OR DILUTION ERROR OF ANTICOAGULANT AT THE TIME OF SAMPLING. Performed By: #### 5 [id number] #### [facility] [address] [place] [address], [facility] Social History Date Type Detail Facility Start: 02-05-2024 Tobacco smoking stat us NHIS Never smoked tobacco (finding) [facility] Start: 1950 Sex Assigned At Female F [facility] Vital Signs Date Time Vital Sign Value Performing Clinician Faci lity 02-19-2024 [id number] Body height 157.48 cm MD Krzysztof Harp Work Phone: [facility] 02-19-2024 09:07-0400 Body mass index (BMI) [Ratio] 24.7 kg/m2 MD Krzysztof Harp Work Phone: [facility] 02-19-2024 09:07-0400 Body weight 61.23 kg MD Krzysztof Harp Work Phone: [facility] 02-19-2024 09:07-0400 Diastolic blood pressure 105 mm[Hg] MD Kzrysztof Harp Work Phone: [facility] 02-19-2024 09:07-0400 Heart rate 60 /min MD Krzysztof Harp Work Phone: [facility] 02-19-2024 09:07-0400 Systolic blood pressure 146 mm[Hg] MD Krzysztof Harp Work Phone: [facility] 02-05-2024 13:37-0400 Diastolic blood pressure 47 mm[Hg] MD Krzysztof Harp Work Phone: [facility] 02-05-2024 13:37-0400 Heart rate 78 /min MD Krzysztof Harp Work Phone: [facility] 02-05-2024 13:37-0400 Respiratory rate 16 /min MD Krzysztof Harp Work Phone: [facility] 02-05-2024 13:37-0400 SaO2% (BldA) [Mass fraction] 97 % MD Krzysztof Harp Work Phone: [facility] 02-05-2024 13:37-0400 Systolic blood pressure 122 mm[Hg] MD Krzysztof Harp Work Phone: [facility] 02-05-2024 11:35-0400 Body height 157.48 cm MD Krzysztof Harp Work Phone: [facility] 02-05-2024 11:35-0400 Body temperature 99.1 [degF] MD Krzysztof Harp Work Phone: [facility] 02-05-2024 11:35-0400 Body weight 62.14 kg MD Krzysztof Harp Work Phone: [facility] Procedure note 02-05-2024 Note Date & Type Note Facility 02-05-2024 Procedure note [facility] Progress note 12-15-2022 Note Date & Type [...] She will be (more content not included)... [facility] Progress note 12-15-2022 Note Date & Type Note Facility 12-15-2022 Note Review of Systems Cardiovascular: Positive for leg swelling. Respiratory: Positive for shortness of breath. Skin: Positive for color change. Neurological: Positive for headaches. All other systems reviewed and are negative. [facility] Clinical Note 07-25-2022 Note Date & Type [...] authenticated by: VISHNU MARIE Date: 2022-07-25 13:25 [facility] Clinical Note 05-11-2022 Note Date [...] by: VISHNU MARIE Date: 2022-05-11 12:51 [facility] Clinical Note 02-14-2022 Note Date & Type Note Facility 02-14-2022 Note PROCEDURE: XR KNEE L T 4V or > COMPARISON: None. HISTORY: Osteoarthritis FINDINGS: BONES:No fracture, acute abnormality, or significant arthropathy. SOFT TISSUES:Negative. No visible soft tissue swelling. EFFUSION:Moderate suprapatellar joint effusion OTHER: Negative. IMPRESSION: Moderate joint effusion Electronically authenticated by: GODWIN BECK Date: 2022-02-14 17:30 [facility] Evaluation note Note Date & Type Note Facility Evaluation note No assessment information availa [facility] Work Phone: Evaluation note Note Date & Type Note Facility Evaluation note Diagnosis Onset Date Duodenal diverticulum acute Hiatal hernia acute IBS (irritable bowel syndrome) acute Screening for colon cancer a [facility] Work Phone: History and physical note Note Date & Type Note Facility History and physical note Note Date/Time February 05, 2024 1:08p [facility]TER [address] [place] [address] Gastroenterology H&P Signed Patient: Sheila Mac MR#: [id number] : 1950 Acct:[id number] Age/Sex: 73 / F Adm Date: 4 Loc: Room: Type: [facility] Attending Dr: Ben Sanchez MD Copies to: MD Krzysztof Crisostomo MD~ Date of Service: 02/05/2024 HISTORY & PHYSICAL: Patient's history with special attention to the cardiovascular, pulmonary systems and the current problem was reviewed with the patient immediately prior to the procedure. Present medications and doses reviewed in the EMR. Allergies and pertinent laboratory tests were also reviewedat this time in the EMR. The physical examination, as below, was then performed. Indication, assessment and HPI: This is a 73-year-old female who presents for enteroscopy to evaluate abnormal CT findings. CT scan done by her PCP for abdominal pain showing a large duodenal diverticulum versus mass. Family history of GI malignancy? No PHYSICAL EXAMINATION Mouth and Pharynx : Moist mucus membranes, normal dentition Cardiac: Regular rate, regular rhythm Pulmonary: Clear to auscultation bilaterally, no wheezing Neurological: Alert and oriented x3, no focal deficits noted Abdomen: Abdomen soft, non-tender REVIEW OF SYSTEMS Constitutional: Denies malaise, fevers Cardiovascular: Denies chest pain, palpitations Respiratory: Denies shortness of breath, wheezing Gastrointestinal: Per HPI Genitourinary: Denies dysuria, polyuria Musculoskeletal: Denies joint swelling, joint stiffness Neurological: Denies numbness, tingling Integumentary: Denies rashes, skin lesions Endocrine: Denies fatigue, weight loss Written informed consent obtained from the patient. Risks (including but not limited to perforation, infection, bloating, bleeding, need for emergent surgeryand loss of life), benefits and alternatives explained and questions answered. The patient verbalized understanding. Based on history patient is an appropriate candidate for the procedure. Ben Sanchez MD Documented By: Ben Sanchez MD 02/05/24 1305 Signed By: <Electronically signed by Ben Sanchez MD> 02/05/24 1300 [facility] Work Phone: Summary Purpose Family History Relationship Condition Age at Onset Recorded Date/T elizabeth father Unknown Not Specified Unknown Advance Directives Advance Directive Response Recorded Date/ Time Advance Directives No January 21 3:15pm Chief Complaint and Reason for Visit Chief Complaint duodenal diverticula /abnormal ct duodenal diverticula/abnormal ct Chief Complaint duodenal diverticula /abnormal ct duodenal diverticula/abnormal ct follow up egd Reason for Visit Duodenal diverticulu m Hiatal hernia IBS (irritable bowel syndrome) Screening for colon cancer Additional Source Comments INFORMATION SOURCE (unrecogn ized section and content) DATE CREATED AUTHOR 11/24/2018 [facility] DATE CREATED AUTHOR AUTHOR'S ORGANIZ ATION 12/19/2022 [facility] DATE CREATED AUTHOR AUTHOR'S ORGANIZ ATION 01/18/2023 [facility] DATE CREATED AUTHOR AUTHOR'S ORGANIZ ATION 01/10/2024 [facility] DATE CREATED AUTHOR AUTHOR'S ORGANIZ ATION 01/10/2024 [facility] DATE CREATED AUTHOR AUTHOR'S ORGANIZ ATION 02/16/2024 [facility] Care Teams (unrecognized sec tion and content) Team Status: Active Member Role Status Dates Krzysztof Harp MD Primary Care Provider Active Team Status: Active Member Role Status Dates Ben Sanchez MD Attending Provider Active S tart: January 16, 2024 Team Status: Inactive Member Role Status Dates Ben Sanchez MD Attending Provider Active S tart: February 05, 2024 End: February 05, 2024 Krzysztof Harp MD Primary Care Provider Active Start: February 05, 2024 End: February 05, 2024 Team Status: Active Member Role Status Dates Ben Sanchez MD Attending Provider, Other Provide r Active Start: February 05, 2024 Krzysztof Harp MD Primary Care Provider Active Start: February 05, 2024 Team Status: Inactive Member Role Status Dates Ben Sanchez MD Attending Provider Active S tart: February 19, 2024 End: February 19, 2024 Krzysztof Harp MD Primary Care Provider Active Start: February 19, 2024 End: February 19, 2024 FOR RECORDS PERTAINING TO PATIENTS WHO ARE [...] BE BASED ON THE PRIMARY CLINICAL RECORDS. [facility]. provides no warranty or guarantee of the accuracy or completeness of information in this document.
== END 2024-03-10 11:02 | disposition home or self-care (01) ==
LOC: LAB 11:03
PROVIDERS: PCP Family Medicine; Visit Provider Family Medicine
DX: G57.71 Causalgia of right lower limb (principal); M51.36 Other intervertebral disc degeneration, lumbar region
CPT/HCPCS: 73502

== ENCOUNTER 2024-03-27 16:27 | Outpatient (OUT) | payer MEDICARE, SELFPAY ==
--- NOTE | 2024-03-27 | US_ITS ---
The [address] [address] Patient Name: EDIN SAMANIEGO MRN: [id number] date: 1950 Sex: F Assigned Patient Location: US Current Patient Location: US Accession/Order Number: [id number] Exam Date: 03/27/2024 17:30 Report Date: 03/27/2024 20:34 At the request of: KRZYSZTOF THOMPSON Procedure: US venous doppler UE LT EXAM: US venous doppler UE LT HISTORY: Pain. COMPARISON: None. TECHNIQUE: Real-time longitudinal and transverse sonographic grayscale imaging with and without compression, as well as color and duplex Doppler imaging before and after augmentation, was obtained of the deep system of the left upper extremity, including the internal jugular, subclavian, axillary, and brachial veins. The basilic and cephalic veins were also evaluated. FINDINGS: Internal jugular vein: No evidence of thrombus. Subclavian vein: No evidence of thrombus. Axillary vein: No evidence of thrombus. Brachial vein: No evidence of thrombus. Cephalic vein: Patent. Basilic vein: Patent. US/US venous doppler UE LT IMPRESSION: No ultrasound evidence of deep venous thrombosis. Electronically authenticated by: PREMA PINTO Date: 03/27/2024 20:34
--- NOTE | 2024-03-27 | US_ITS ---
The [address] [address] Patient Name: EDIN SAMANIEGO MRN: [id number] date: 1950 Sex: F Assigned Patient Location: US Current Patient Location: Accession/Order Number: [id number] Exam Date: 03/27/2024 18:22 Report Date: 03/28/2024 04:20 At the request of: KRZYSZTOF THOMPSON Procedure: US arterial duplex UE LT EXAMINATION: US arterial duplex UE LT HISTORY: causalgia rt arm G.56.42 COMPARISON: No relevant comparison available. TECHNIQUE: Color duplex Doppler ultrasound evaluation analysis was performed in the usual manner. FINDINGS: WAVE FORM: Biphasic waveform within the ulnar artery, otherwise normal triphasic waveform throughout the left upper extremity. VESSEL LUMEN: No significant narrowing or atherosclerotic disease. FLOW VELOCITY: No significantly increased or decreased flow velocity. US/US arterial duplex UE LT IMPRESSION: 1. No significant vessel narrowing or appreciable atherosclerotic disease. 2. Abnormal biphasic waveform within the ulnar artery. 2. Otherwise normal triphasic waveform throughout the left upper extremity. Electronically authenticated by: DANIEL PINEDA Date: 03/28/2024 04:20
--- OUTSIDE RECORDS SUMMARY | 2024-03-27 16:33 | XMS_ITS | CCD ---
Author Organization [facility] Care Team Providers Care Newspaper Or Periodical Editor Name Role Phone PHYSICIAN, DEFAULT Admitting Unavailable [...] PROVIDER Attending Unavailable KRZYSZTOF HARP Referring Unavailable JASONYKRZYSZTOF Primary Care Unavailable RODRIGUEZ RIVERA Attending Unavailable HOY ., DR BLANKENSHIP Attending Unavailable HOY ., DR BLANKENSHIP Consulting Unavailable HOY ., DR BLANKENSHIP Primary Care Unavailable HOY ., DR BLANKENSHIP Admitting Unavailable [place], DR GODWIN Cardona Consulting Unavailable HOY ., [...] VANESSA Consulting Unavailcyndy ELAINE, RAVEN Consulting Unavailable LEA, NATALIIA Consulting Unavailable HOY ., DR BLANKENSHIP Admitting [...] Unavailable JASONY ., DR BLANKENSHIP Attending Unavailable JASONY ., DR BLANKENSHIP Primary Care Unavailable KRZYSZTOF HARP M Referring Unavailable KRZYSZTOF HARP M Primary Care Unavailable KRZYZSTOF HARP M Referring Unavailable KRZYSZTOF HARP M Primary Care Unavailable DARSHAN HERNANDEZ Attending Unavailable MD Ben Sanchez Attending Provider MD Krzysztof Harp Primary Care Provider [phone] Ben Sanchez Attending Unavailable Ben Sanchez Admitting Unavailable Krzysztof Harp Primary Care Unavailable Allergies Allergy Classification Reported Allergen(s) Allergy Type Date of Onset Reaction(s) Facility NSAIDs (1 source) NSAIDs Drug Allergy 4 [facility] Repository Opioid Agonists (1 source) Morphine Drug Allergy 4 [facility] Repository Penicillins (antibiotic) (1 source) Penicillins Drug Allergy 4 [facility] Repository (5 sources) Morphine; 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: [MORPHINE] Drug Allergy 7 Vomiting [facility] Repository (3 sources) NSAIDs; 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: [NSAIDS (NON-STEROIDAL ANTI-INFLAMMATOR Y DRUG)] Drug allergy (disorder) 9 [facility] Repository (1 source) Penicillin Drug Allergy 9 [facility] Repository (1 source) predniSONE Drug Allergy 9 [facility] Repository (2 sources) Iodinated Contrast- Oral and IV Dye Drug allergy (disorder) 5 [facility] Repository (5 sources) Penicillins; 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: [PENICILLINS] Propensity to adverse reactions to drug (disorder) 5 Rash [facility] Repository (4 sources) IODINATED CONTRAST MEDIA; 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: [IODINATED CONTRAST MEDIA] Propensity to adverse reactions to drug (disorder) 3 Anaphylaxis [facility] Repository (1 source) levoFLOXacin Drug Allergy 3 [facility] Repository (1 source) meloxicam Drug Allergy 3 [facility] Repository (1 source) Contrast media; 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: [DYE] Propensity to adverse reactions to drug (disorder) 7 [facility] Repository (1 source) MORPHOLINE ANALOGUES; 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: [MORPHOLINE ANALOGUES] Propensity to adverse reactions to drug (disorder) 7 [facility] Repository (2 sources) NSAIDS (Non-Steroidal Anti-Inflamma Propensity to adverse reactions 4 Stomach Ulcer [facility] Medications Current Medications Medication Drug Class(es) Dates [...] Active 30 ML PO Twice daily 1800 30 February 19, 2024 9:26am Start: 01-28-2024 End: [...] 28, 2024 12:00am February 19, 2024 9:13am Problems Active Problems Problem Classification Problem Date [...] Onset: 01-17-2023 Chronic Other aftercare (2 sources) skilled nursing (current) use of aspirin; 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 B1, Whole Blood 118.1 nmol/L Normal 66.5-200.0 e [facility] Comment on above: Performed By: #### C BC #### [facility] [address] [place] [address] Dr. Ekta Funk BNPon 01-10-2023 Natriuretic peptide B (Bld) [Mass/Vol] 980.0 pg/mL Critically high <=900.0 [facility] Comment on above: Performed By: #### C VDTBH #### [facility] [address] [place] [address] Dr. Ekta Funk CBC AUTO DIFFon 01-10-2023 BASO # 0.1 103/ul Normal 0.0-0.1 [facility] Comment on above: Performed By: #### C MP #### [facility] [address] [place] [address] Dr. Ekta Funk Basophils/100 WBC (Bld) 1.0 % Normal 0.2-2.0 [facility] Comment on above: Performed By: #### C MP #### [facility] [address] [place] [address] Dr. Ekta Funk EO # 0.4 103/ul Normal 0.0-0.7 [facility] Comment on above: Performed By: #### C MP #### [facility] [address] [place] [address] Dr. Ekta Funk Eosinophils/100 WBC (Bld) 3.7 % Normal 0.9-7.0 [facility] Comment on above: Performed By: #### C MP #### [facility] [address] [address] [address] Ekta Funk Erythrocyte distribution width (RBC) [Ratio] 13.2 % Normal 11.0-15.0 [facility] Comment on above: Performed By: #### C MP #### [facility] [address] [place] [address] Dr. Ekta Funk Hematocrit (Bld) [Volume fraction] 35.1 % Critically low 36.0-48.0 [facility] Comment on above: Performed By: #### C MP #### [facility] [address] [place] [address] Dr. Ekta Funk Hemoglobin (Bld) [Mass/Vol] 11.3 g/dL Critically low 12.0-16.0 [facility] Comment on above: Performed By: #### C MP #### [facility] [address] [place] [address] Dr. Ekta Funk IG # 0.04 10e3/ul Critically high 0.00-0.03 [facility] Comment on above: Performed By: #### C MP #### [facility] [address] [place] [address] Dr. Ekta Funk IG % 0.4 % Normal 0.0-0.5 [facility] Comment on above: Performed By: #### C MP #### [facility] [address] [place] [address] Dr. Ekta Funk LYMPH # 2.0 103/ul Normal 1.2-3.8 [facility] Comment on above: Performed By: #### C MP #### [facility] [address] [place] [address] Dr. Ekta Funk Lymphocytes/100 WBC (Bld) 20.8 % Normal 20.5-60.0 [facility] Comment on above: Performed By: #### C MP #### [facility] [address] [place] [address] Dr. Ekta Funk MANUAL DIFF REQ NO Normal [facility] Comment on above: Performed By: #### C MP #### [facility] [address] [place] [address] Dr. Ekta Funk MCH (RBC) [Entitic mass] 32.3 pg Normal 26.7-34.0 [facility] Comment on above: Performed By: #### C MP #### [facility] [address] [place] [address] Dr. Ekta Funk MCHC (RBC) [Mass/Vol] 32.2 g/dL Normal 29.9-35.2 [facility] Comment on above: Performed By: #### C MP #### [facility] [address] [place] [address] Dr. Ekta Funk MCV (RBC) [Entitic vol] 100.3 fL Critically high 81.0-99.0 [facility] Comment on above: Performed By: #### C MP #### [facility] [address] [place] [address] Dr. Ekta Funk MONO # 0.8 103/ul Normal 0.3-0.8 [facility] Comment on above: Performed By: #### C MP #### [facility] [address] [place] [address] Dr. Ekta Funk Monocytes/100 WBC (Bld) 7.9 % Normal 1.7-12.0 [facility] Comment on above: Performed By: #### C MP #### [facility] [address] [place] [address] Dr. Ekta Funk NEUT # 6.4 103/ul Normal 1.4-6.5 [facility] Comment on above: Performed By: #### C MP #### [facility] [address] [place] [address] Dr. Ekta Funk Neutrophils/100 WBC (Bld) 66.2 % Normal 43.0-75.0 [facility] Comment on above: Performed By: #### C MP #### [facility] [address] [place] [address] Dr. Ekta Funk Platelet mean volume (Bld) [Entitic vol] 9.6 fL Normal 9.5-13.5 [facility] Comment on above: Performed By: #### C MP #### [facility] [address] [address] [address] Ekta Funk PLT 255 103/ul Normal 150-450 [facility] Comment on above: Performed By: #### C MP #### [facility] [address] [place] [address] Dr. Ekta Funk RBC 3.50 106/ul Critically low 4.20-5.40 [facility] Comment on above: Performed By: #### C MP #### [facility] [address] [place] [address] Dr. Ekta Funk WBC 9.7 103/ul Normal 4.0-11.0 [facility] Comment on above: Performed By: #### C MP #### [facility] [address] [place] [address] Dr. Ekta Funk CRPon 01-10-2023 CRP [Mass/Vol] mg/L Normal <=1.0 [facility] Comment on above: Performed By: #### C BC #### [facility] [address] [place] [address] Dr. Ekta Funk FREE THYROXINE INDEX T7on FTI 2.62 Normal 1.30-4.50 [facility] Comment on above: Performed By: #### C BC #### [facility] [address] [place] [address] Dr. Ekta Funk T3U 32.0 % Normal 30.0-39.0 [facility] Comment on above: Performed By: #### C BC #### [facility] [address] [place] [address] Dr. Ekta Funk T4 [Mass/Vol] 8.20 ug/dL Normal 4.80-13.90 [facility] Comment on above: Performed By: #### C BC #### [facility] [address] [place] [address] Dr. Ekta Funk IRONon 01-10-2023 Iron [Mass/Vol] 61.0 ug/dL Normal 50.0-170.0 [facility] Comment on above: Performed By: #### B 12FOCAROLYN Lui, IRON #### [facility] [address] [address] [address] Ekta Funk PROF 14(COMP METB)on 023 Albumin [Mass/Vol] 2.9 g/dL Critically low 3.4-5.0 Th e [facility] Comment on above: Performed By: #### C VDTBH #### [facility] [address] [address] [address] Ekta Funk Albumin/Globulin [Mass ratio] 0.6 {ratio} Normal [facility] Comment on above: Performed By: #### C VDTBH #### [facility] [address] [place] [address] Dr. Ekta Funk ALP [Catalytic activity/Vol] 101 U/L Normal 46-116 [facility] Comment on above: Performed By: #### C VDTBH #### [facility] [address] [place] [address] Dr. Ekta Funk ALT [Catalytic activity/Vol] 16 U/L Normal 14-59 [facility] Comment on above: Performed By: #### C VDTBH #### [facility] [address] [place] [address] Dr. Ekta Funk Anion gap [Moles/Vol] 14.6 mmol/L Normal [facility] Comment on above: Performed By: #### C VDTBH #### [facility] [address] [place] [address] Dr. Ekta Funk AST [Catalytic activity/Vol] 15 U/L Normal 15-37 [facility] Comment on above: Performed By: #### C VDTBH #### [facility] [address] [place] [address] Dr. Ekta Funk Bilirubin [Mass/Vol] 0.4 mg/dL Normal 0.2-1.0 [facility] Comment on above: Performed By: #### C VDTBH #### [facility] [address] [place] [address] Dr. Ekta Funk Calcium [Mass/Vol] 9.2 mg/dL Normal 8.5-10.1 [facility] Comment on above: Performed By: #### C VDTBH #### [facility] [address] [address] [address] Ekta Funk Chloride [Moles/Vol] 107 mmol/L Normal 98-107 [facility] Comment on above: Performed By: #### C VDTBH #### [facility] [address] [address] [address] Ekta Funk CO2 [Moles/Vol] 24.4 mmol/L Normal 21.0-32.0 [facility] Comment on above: Performed By: #### C VDTBH #### [facility] [address] [address] [address] Ekta Funk Creatinine [Mass/Vol] 2.02 mg/dL Critically high 0.55-1.02 [facility] Comment on above: Performed By: #### C VDTBH #### [facility] [address] [place] [address] Dr. Ekta Funk EGFR-AF BERMUDIAN 29 mL/min/1.73m2 Critically low >=60 [facility] Comment on above: Performed By: #### C VDTBH #### [facility] [address] [place] [address] Dr. Ekta Funk EGFR-NON AF BERMUDIAN 24 mL/min/1.73m2 Critically low >=60 [facility] Comment on above: Performed By: #### C VDTBH #### [facility] [address] [address] [address] Ekta Funk Globulin (S) [Mass/Vol] 4.5 g/dL Normal [facility] Comment on above: Performed By: #### C VDTBH #### [facility] [address] [address] [address] Ekta Funk Glucose [Mass/Vol] 103 mg/dL Normal 74-106 [facility] Comment on above: Performed By: #### C VDTBH #### [facility] [address] [place] [address] Dr. Ekta Funk Potassium [Moles/Vol] 5.0 mmol/L Normal 3.5-5.1 [facility] Comment on above: Performed By: #### C VDTBH #### [facility] [address] [place] [address] Dr. Ekta Funk Protein [Mass/Vol] 7.4 g/dL Normal 6.4-8.2 [facility] Comment on above: Performed By: #### C VDTBH #### [facility] [address] [place] [address] Dr. Ekta Funk Sodium [Moles/Vol] 141 mmol/L Normal 136-145 [facility] Comment on above: Performed By: #### C VDTBH #### [facility] [address] [place] [address] Dr. Ekta Funk Urea nitrogen [Mass/Vol] 23.0 mg/dL Critically high 7.0-18.0 [facility] Comment on above: Performed By: #### C VDTBH #### [facility] [address] [place] [address] Dr. Ekta Funk Urea nitrogen/Creatinine [Mass ratio] 11.4 mg/mg Normal [facility] Comment on above: Performed By: #### C VDTBH #### [facility] [address] [place] [address] Dr. Ekta Funk TSHon 01-10-2023 TSH 1.793 uIU/mL Normal 0.358-3.740 [facility] Comment on above: Performed By: #### C VDTBH #### [facility] [address] [place] [address] Dr. Ekta Funk VIT B12 AND FOLATEon 023 Cobalamin (Vitamin B12) [Mass/Vol] 175.0 pg/mL Critically low 193.0-986.0 [facility] Comment on above: Performed By: #### B 12FOL, VITAD, IRON #### [facility] [address] [place] [address] Dr. Ekta Funk FOLATE 10.30 ng/mL Normal 8.60-58.90 [facility] Comment on above: Performed By: #### B 12FOL, VITAD, IRON #### [facility] [address] [address] [address] Ekta Funk VITAMIN D 25 OHon 01-10-2023 VIT D 25-OH 24.0 ng/mL Normal [facility] Comment on above: Performed By: #### B 12FOL, VITAD, IRON #### [facility] [address] [address] [address] Ekta Funk VIT D RANGES SEE BELOW Normal [facility] Comment on above: Result Comment: <20 ng/mL Vit D deficient 20 - <30 ng/mL Vit D insufficient 30 - 100 ng/mL Vit D sufficient >100 ng/mL Potential Toxicity Performed By: #### B 12FOL, VITAD, IRON #### [facility] [address] [address] [address] Ekta Funk Office Visiton 12-15-2022 Follow-up visit [id number] Sheila Mac 1950 F Date Provider Department Center 12/15/2022 [facility]RODRIGUEZ RIVERA [facility] No family history on file Level of Service:84528 NM OFFICE/OUTPATIENT ESTABLISHED MOD MDM 30-39 MIN Reason for Visit and Comments: Follow-up [598927] - Is here f/u stress test pt states she had Bruises all over both legs symptoms stated a week ago also stated legs are swollen and burning Normal [facility] NM STRESS/REST MULTIon 12-05 NM STRESS/REST MULTI Patient: SHEILA MAC Exam Date: 12/05/2022 : 1950 Gender:F Ordering : DR KRZYSZTOF HARP . Admission #: [id number] Family : Order #: [id number] CLICK HERE TO VIEW EXAM RADIOLOGY REPORT [...] Marie M.D. on 12/06/2022 at 07:26 Normal [facility] ECHOCARDIO M/2D COMPLETEon 0 11-27-2022 ECHOCARDIO M/2D COMPLETE Patient: SHEILA MAC Exam Date: 11/27/2022 : 1950 Gender:F Ordering : DR KRZYSZTOF HARP . Admission #: [id number] Family : Order #: [id number] CLICK HERE TO VIEW EXAM ECHOCARDIOGRAM REPORT [...] M.D. on 11/27/2022 at 14:39 Normal [facility] CBC AUTO DIFFon 11-26-2022 BASO # 0.0 103/ul Normal 0.0-0.1 [facility] Comment on above: Performed By: #### I NSULIN #### [facility] [address] [place] [address] Dr. Ekta Funk Basophils/100 WBC (Bld) 0.6 % Normal 0.2-2.0 [facility] Comment on above: Performed By: #### I NSULIN #### [facility] [address] [address] [address] Ekta Funk EO # 0.3 103/ul Normal 0.0-0.7 [facility] Comment on above: Performed By: #### I NSULIN #### [facility] [address] [address] [address] Ekta Funk Eosinophils/100 WBC (Bld) 4.8 % Normal 0.9-7.0 [facility] Comment on above: Performed By: #### I NSULIN #### [facility] [address] [address] [address] Ekta Funk Erythrocyte distribution width (RBC) [Ratio] 13.3 % Normal 11.0-15.0 [facility] Comment on above: Performed By: #### I NSULIN #### [facility] [address] [address] [address] Ekta Funk Hematocrit (Bld) [Volume fraction] 29.1 % Critically low 36.0-48.0 [facility] Comment on above: Performed By: #### I NSULIN #### [facility] [address] [address] [address] Ekta Funk Hemoglobin (Bld) [Mass/Vol] 9.5 g/dL Critically low 12.0-16.0 [facility] Comment on above: Performed By: #### I NSULIN #### [facility] [address] [address] [address] Ekta Funk IG # 0.07 10e3/ul Critically high 0.00-0.03 [facility] Comment on above: Performed By: #### I NSULIN #### [facility] [address] [address] [address] Ekta Funk IG % 1.0 % Critically high 0.0-0.5 [facility] Comment on above: Performed By: #### I NSULIN #### [facility] [address] [place] [address] Dr. Ekta Funk LYMPH # 1.2 103/ul Normal 1.2-3.8 [facility] Comment on above: Performed By: #### I NSULIN #### [facility] [address] [address] [address] Ekta Funk Lymphocytes/100 WBC (Bld) 17.2 % Critically low 20.5-60.0 [facility] Comment on above: Performed By: #### I NSULIN #### [facility] [address] [address] [address] Ekta Funk MANUAL DIFF REQ NO Normal [facility] Comment on above: Performed By: #### I NSULIN #### [facility] [address] [address] [address] Ekta Funk MCH (RBC) [Entitic mass] 31.7 pg Normal 26.7-34.0 [facility] Comment on above: Performed By: #### I NSULIN #### [facility] [address] [address] [address] Ekta Funk MCHC (RBC) [Mass/Vol] 32.6 g/dL Normal 29.9-35.2 [facility] Comment on above: Performed By: #### I NSULIN #### [facility] [address] [address] [address] Ekta Funk MCV (RBC) [Entitic vol] 97.0 fL Normal 81.0-99.0 [facility] Comment on above: Performed By: #### I NSULIN #### [facility] [address] [address] [address] Ekta Funk MONO # 0.8 103/ul Normal 0.3-0.8 [facility] Comment on above: Performed By: #### I NSULIN #### [facility] [address] [address] [address] Ekta Funk Monocytes/100 WBC (Bld) 11.1 % Normal 1.7-12.0 [facility] Comment on above: Performed By: #### I NSULIN #### [facility] [address] [address] [address] Ekta Funk NEUT # 4.5 103/ul Normal 1.4-6.5 [facility] Comment on above: Performed By: #### I NSULIN #### [facility] [address] [address] [address] Ekta Funk Neutrophils/100 WBC (Bld) 65.3 % Normal 43.0-75.0 [facility] Comment on above: Performed By: #### I NSULIN #### [facility] [address] [address] [address] Ekta Funk Platelet mean volume (Bld) [Entitic vol] 9.4 fL Critically low 9.5-13.5 [facility] Comment on above: Performed By: #### I NSULIN #### [facility] [address] [address] [address] Ekta Funk PLT 263 103/ul Normal 150-450 [facility] Comment on above: Performed By: #### I NSULIN #### [facility] [address] [address] [address] Ekta Funk RBC 3.00 106/ul Critically low 4.20-5.40 [facility] Comment on above: Performed By: #### I NSULIN #### [facility] [address] [address] [address] Ekta Funk WBC 6.9 103/ul Normal 4.0-11.0 [facility] Comment on above: Performed By: #### I NSULIN #### [facility] [address] [place] [address] Dr. Ekta Funk PROF 14(COMP METB)on 023 Albumin [Mass/Vol] 2.2 g/dL Critically low 3.4-5.0 Th e [facility] Comment on above: Performed By: #### C MP #### [facility] [address] [place] [address] Dr. Ekta Funk Albumin/Globulin [Mass ratio] 0.6 {ratio} Normal [facility] Comment on above: Performed By: #### C MP #### [facility] [address] [place] [address] Dr. Ekta Funk ALP [Catalytic activity/Vol] 82 U/L Normal 46-116 [facility] Comment on above: Performed By: #### C MP #### [facility] [address] [place] [address] Dr. Ekta Funk ALT [Catalytic activity/Vol] 13 U/L Critically low 14-59 [facility] Comment on above: Performed By: #### C MP #### [facility] [address] [place] [address] Dr. Ekta Funk Anion gap [Moles/Vol] 14.0 mmol/L Normal [facility] [facility] Comment on above: Performed By: #### C MP #### [facility] [address] [place] [address] Dr. Ekta Funk AST [Catalytic activity/Vol] 18 U/L Normal 15-37 [facility] Comment on above: Performed By: #### C MP #### [facility] [address] [place] [address] Dr. Ekta Funk Bilirubin [Mass/Vol] 0.4 mg/dL Normal 0.2-1.0 [facility] Comment on above: Performed By: #### C MP #### [facility] [address] [address] [address] Ekta Funk Calcium [Mass/Vol] 8.6 mg/dL Normal 8.5-10.1 [facility] Comment on above: Performed By: #### C MP #### [facility] [address] [address] [address] Ekta Funk Chloride [Moles/Vol] 108 mmol/L Critically high 98-107 [facility] Comment on above: Performed By: #### C MP #### [facility] [address] [address] [address] Ekta Funk CO2 [Moles/Vol] 19.6 mmol/L Critically low 21.0-32.0 [facility] Comment on above: Performed By: #### C MP #### [facility] [address] [address] [address] Ekta Funk Creatinine [Mass/Vol] 1.70 mg/dL Critically high 0.55-1.02 [facility] Comment on above: Performed By: #### C MP #### [facility] [address] [address] [address] Ekta Funk EGFR-AF BERMUDIAN 36 mL/min/1.73m2 Critically low >=60 [facility] Comment on above: Performed By: #### C MP #### [facility] [address] [address] [address] Ekta Funk EGFR-NON AF BERMUDIAN 29 mL/min/1.73m2 Critically low >=60 [facility] Comment on above: Performed By: #### C MP #### [facility] [address] [address] [address] Ekta Funk Globulin (S) [Mass/Vol] 3.6 g/dL Normal [facility] Comment on above: Performed By: #### C MP #### [facility] [address] [address] [address] Ekta Fnuk Glucose [Mass/Vol] 103 mg/dL Normal 74-106 [facility] Comment on above: Performed By: #### C MP #### [facility] [address] [address] [address] Ekta Funk Potassium [Moles/Vol] 4.6 mmol/L Normal 3.5-5.1 [facility] Comment on above: Performed By: #### C MP #### [facility] [address] [address] [address] Ekta Funk Protein [Mass/Vol] 5.8 g/dL Critically low 6.4-8.2 [facility] Comment on above: Performed By: #### C MP #### [facility] [address] [address] [address] Ekta Funk Sodium [Moles/Vol] 137 mmol/L Normal 136-145 [facility] Comment on above: Performed By: #### C MP #### [facility] [address] [place] [address] Dr. Ekta Funk Urea nitrogen [Mass/Vol] 26.0 mg/dL Critically high 7.0-18.0 [facility] Comment on above: Performed By: #### C MP #### [facility] [address] [place] [address] Dr. Ekta Funk Urea nitrogen/Creatinine [Mass ratio] 15.3 mg/mg Normal [facility] Comment on above: Performed By: #### C MP #### [facility] [address] [place] [address] Dr. Ekta Funk CBC AUTO DIFFon 11-25-2022 BASO # 0.1 103/ul Normal 0.0-0.1 [facility] Comment on above: Performed By: #### C BC #### [facility] [address] [place] [address] Dr. Ekta Funk Basophils/100 WBC (Bld) 0.7 % Normal 0.2-2.0 [facility] Comment on above: Performed By: #### C BC #### [facility] [address] [place] [address] Dr. Ekta Funk EO # 0.3 103/ul Normal 0.0-0.7 [facility] Comment on above: Performed By: #### C BC #### [facility] [address] [address] [address] Ekta Funk Eosinophils/100 WBC (Bld) 3.4 % Normal 0.9-7.0 [facility] Comment on above: Performed By: #### C BC #### [facility] [address] [place] [address] Dr. Ekta Funk Erythrocyte distribution width (RBC) [Ratio] 13.6 % Normal 11.0-15.0 [facility] Comment on above: Performed By: #### C BC #### [facility] [address] [place] [address] Dr. Ekta Funk Hematocrit (Bld) [Volume fraction] 32.1 % Critically low 36.0-48.0 [facility] Comment on above: Performed By: #### C BC #### [facility] [address] [place] [address] Dr. Ekta Funk Hemoglobin (Bld) [Mass/Vol] 10.3 g/dL Critically low 12.0-16.0 [facility] Comment on above: Performed By: #### C BC #### [facility] [address] [place] [address] Dr. Ekta Funk IG # 0.08 10e3/ul Critically high 0.00-0.03 [facility] Comment on above: Performed By: #### C BC #### [facility] [address] [place] [address] Dr. Ekta Funk IG % 0.9 % Critically high 0.0-0.5 [facility] Comment on above: Performed By: #### C BC #### [facility] [address] [place] [address] Dr. Ekta Funk LYMPH # 0.9 103/ul Critically low 1.2-3.8 [facility] Comment on above: Performed By: #### C BC #### [facility] [address] [place] [address] Dr. Ekta Funk Lymphocytes/100 WBC (Bld) 10.7 % Critically low 20.5-60.0 [facility] Comment on above: Performed By: #### C BC #### [facility] [address] [place] [address] Dr. Ekta Funk MANUAL DIFF REQ NO Normal [facility] Comment on above: Performed By: #### C BC #### [facility] [address] [place] [address] Dr. Ekta Funk MCH (RBC) [Entitic mass] 32.2 pg Normal 26.7-34.0 [facility] Comment on above: Performed By: #### C BC #### [facility] [address] [place] [address] Dr. Ekta Funk MCHC (RBC) [Mass/Vol] 32.1 g/dL Normal 29.9-35.2 [facility] Comment on above: Performed By: #### C BC #### [facility] [address] [place] [address] Dr. Ekta Funk MCV (RBC) [Entitic vol] 100.3 fL Critically high 81.0-99.0 [facility] Comment on above: Performed By: #### C BC #### [facility] [address] [place] [address] Dr. Ekta Funk MONO # 0.9 103/ul Critically high 0.3-0.8 [facility] Comment on above: Performed By: #### C BC #### [facility] [address] [place] [address] Dr. Ekta Funk Monocytes/100 WBC (Bld) 9.9 % Normal 1.7-12.0 [facility] Comment on above: Performed By: #### C BC #### [facility] [address] [place] [address] Dr. Ekta Funk NEUT # 6.4 103/ul Normal 1.4-6.5 [facility] Comment on above: Performed By: #### C BC #### [facility] [address] [place] [address] Dr. Ekta Funk Neutrophils/100 WBC (Bld) 74.4 % Normal 43.0-75.0 [facility] Comment on above: Performed By: #### C BC #### [facility] [address] [place] [address] Dr. Ekta Funk Platelet mean volume (Bld) [Entitic vol] 9.5 fL Normal 9.5-13.5 [facility] Comment on above: Performed By: #### C BC #### [facility] [address] [place] [address] Dr. Ekta Funk PLT 267 103/ul Normal 150-450 [facility] Comment on above: Performed By: #### C BC #### [facility] [address] [place] [address] Dr. Ekta Funk RBC 3.20 106/ul Critically low 4.20-5.40 [facility] Comment on above: Performed By: #### C BC #### [facility] [address] [place] [address] Dr. Ekta Funk WBC 8.6 103/ul Normal 4.0-11.0 [facility] Comment on above: Performed By: #### C BC #### [facility] [address] [place] [address] Dr. Ekta Funk BASO # 0.1 103/ul Normal 0.0-0.1 [facility] Comment on above: Performed By: #### C MP #### [facility] [address] [place] [address] Dr. Ekta Funk Basophils/100 WBC (Bld) 0.7 % Normal 0.2-2.0 [facility] Comment on above: Performed By: #### C MP #### [facility] [address] [place] [address] Dr. Ekta Funk EO # 0.3 103/ul Normal 0.0-0.7 [facility] Comment on above: Performed By: #### C MP #### [facility] [address] [place] [address] Dr. Ekta Funk Eosinophils/100 WBC (Bld) 3.9 % Normal 0.9-7.0 [facility] Comment on above: Performed By: #### C MP #### [facility] [address] [place] [address] Dr. Ekta Funk Erythrocyte distribution width (RBC) [Ratio] 13.2 % Normal 11.0-15.0 [facility] Comment on above: Performed By: #### C MP #### [facility] [address] [place] [address] Dr. Ekta Funk Hematocrit (Bld) [Volume fraction] 28.0 % Critically low 36.0-48.0 [facility] Comment on above: Performed By: #### C MP #### [facility] [address] [address] [address] Ekta Funk Hemoglobin (Bld) [Mass/Vol] 9.3 g/dL Critically low 12.0-16.0 [facility] Comment on above: Performed By: #### C MP #### [facility] [address] [place] [address] Dr. Ekta Funk IG # 0.08 10e3/ul Critically high 0.00-0.03 [facility] Comment on above: Performed By: #### C MP #### [facility] [address] [place] [address] Dr. Ekta Funk IG % 1.1 % Critically high 0.0-0.5 [facility] Comment on above: Performed By: #### C MP #### [facility] [address] [place] [address] Dr. Ekta Funk LYMPH # 0.9 103/ul Critically low 1.2-3.8 [facility] Comment on above: Performed By: #### C MP #### [facility] [address] [place] [address] Dr. Ekta Funk Lymphocytes/100 WBC (Bld) 12.1 % Critically low 20.5-60.0 [facility] Comment on above: Performed By: #### C MP #### [facility] [address] [place] [address] Dr. Ekta Funk MANUAL DIFF REQ NO Normal [facility] Comment on above: Performed By: #### C MP #### [facility] [address] [place] [address] Dr. Ekta Funk MCH (RBC) [Entitic mass] 32.0 pg Normal 26.7-34.0 [facility] Comment on above: Performed By: #### C MP #### [facility] [address] [place] [address] Dr. Ekta Funk MCHC (RBC) [Mass/Vol] 33.2 g/dL Normal 29.9-35.2 [facility] Comment on above: Performed By: #### C MP #### [facility] [address] [place] [address] Dr. Ekta Funk MCV (RBC) [Entitic vol] 96.2 fL Normal 81.0-99.0 [facility] Comment on above: Performed By: #### C MP #### [facility] [address] [place] [address] Dr. Ekta Funk MONO # 0.7 103/ul Normal 0.3-0.8 [facility] Comment on above: Performed By: #### C MP #### [facility] [address] [place] [address] Dr. Ekta Funk Monocytes/100 WBC (Bld) 9.8 % Normal 1.7-12.0 [facility] Comment on above: Performed By: #### C MP #### [facility] [address] [place] [address] Dr. Ekta Funk NEUT # 5.2 103/ul Normal 1.4-6.5 [facility] Comment on above: Performed By: #### C MP #### [facility] [address] [place] [address] Dr. Ekta Funk Neutrophils/100 WBC (Bld) 72.4 % Normal 43.0-75.0 [facility] Comment on above: Performed By: #### C MP #### [facility] [address] [place] [address] Dr. Ekta Funk Platelet mean volume (Bld) [Entitic vol] 9.4 fL Critically low 9.5-13.5 [facility] Comment on above: Performed By: #### C MP #### [facility] [address] [place] [address] Dr. Ekta Funk PLT 250 103/ul Normal 150-450 [facility] Comment on above: Performed By: #### C MP #### [facility] [address] [address] [address] Ekta Funk RBC 2.91 106/ul Critically low 4.20-5.40 [facility] Comment on above: Performed By: #### C MP #### [facility] [address] [address] [address] Ekta Funk WBC 7.2 103/ul Normal 4.0-11.0 [facility] Comment on above: Performed By: #### C MP #### [facility] [address] [address] [address] Ekta Funk PROF 14(COMP METB)on 023 Albumin [Mass/Vol] 2.1 g/dL Critically low 3.4-5.0 [facility] Comment on above: Performed By: #### C MP #### [facility] [address] [place] [address] Dr. Ekta Funk Albumin/Globulin [Mass ratio] 0.6 {ratio} Normal [facility] Comment on above: Performed By: #### C MP #### [facility] [address] [place] [address] Dr. Ekta Funk ALP [Catalytic activity/Vol] 68 U/L Normal 46-116 [facility] Comment on above: Performed By: #### C MP #### [facility] [address] [place] [address] Dr. Ekta Funk ALT [Catalytic activity/Vol] 14 U/L Normal 14-59 [facility] Comment on above: Performed By: #### C MP #### [facility] [address] [address] [address] Ekta Funk Anion gap [Moles/Vol] 12.9 mmol/L Normal [facility] Comment on above: Performed By: #### C MP #### [facility] [address] [place] [address] Dr. Ekta Funk AST [Catalytic activity/Vol] 14 U/L Critically low 15-37 [facility] Comment on above: Performed By: #### C MP #### [facility] [address] [address] [address] Ekta Funk Bilirubin [Mass/Vol] 0.3 mg/dL Normal 0.2-1.0 [facility] Comment on above: Performed By: #### C MP #### [facility] [address] [address] [address] Ekta Funk Calcium [Mass/Vol] 8.3 mg/dL Critically low 8.5-10.1 [facility] Comment on above: Performed By: #### C MP #### [facility] [address] [address] [address] Ekta Funk Chloride [Moles/Vol] 109 mmol/L Critically high 98-107 [facility] Comment on above: Performed By: #### C MP #### [facility] [address] [address] [address] Ekta Funk CO2 [Moles/Vol] 19.3 mmol/L Critically low 21.0-32.0 [facility] Comment on above: Performed By: #### C MP #### [facility] [address] [address] [address] Ekta Funk Creatinine [Mass/Vol] 1.54 mg/dL Critically high 0.55-1.02 [facility] Comment on above: Performed By: #### C MP #### [facility] [address] [address] [address] Ekta Funk EGFR-AF BERMUDIAN 40 mL/min/1.73m2 Critically low >=60 [facility] Comment on above: Performed By: #### C MP #### [facility] [address] [address] [address] Ekta Funk EGFR-NON AF BERMUDIAN 33 mL/min/1.73m2 Critically low >=60 [facility] Comment on above: Performed By: #### C MP #### [facility] [address] [address] [address] Ekta Funk Globulin (S) [Mass/Vol] 3.7 g/dL Normal [facility] Comment on above: Performed By: #### C MP #### [facility] [address] [address] [address] Ekta Funk Glucose [Mass/Vol] 117 mg/dL Critically high 74-106 [facility] Comment on above: Performed By: #### C MP #### [facility] [address] [address] [address] Ekta Funk Potassium [Moles/Vol] 4.2 mmol/L Normal 3.5-5.1 [facility] Comment on above: Performed By: #### C MP #### [facility] [address] [address] [address] Ekta Funk Protein [Mass/Vol] 5.8 g/dL Critically low 6.4-8.2 [facility] Comment on above: Performed By: #### C MP #### [facility] [address] [address] [address] Ekta Funk Sodium [Moles/Vol] 137 mmol/L Normal 136-145 [facility] Comment on above: Performed By: #### C MP #### [facility] [address] [address] [address] Ekta Funk Urea nitrogen [Mass/Vol] 27.0 mg/dL Critically high 7.0-18.0 [facility] Comment on above: Performed By: #### C MP #### [facility] [address] [address] [address] Ekta Funk Urea nitrogen/Creatinine [Mass ratio] 17.5 mg/mg Normal [facility] Comment on above: Performed By: #### C MP #### [facility] [address] [address] [address] Ekta Funk AMMONIAon 11-24-2022 Ammonia (P) [Moles/Vol] 13 umol/L Normal 11-32 [facility] Comment on above: Performed By: #### C VDTBH #### [facility] [address] [address] [address] Ekta Funk CBC AUTO DIFFon 11-24-2022 BASO # 0.0 103/ul Normal 0.0-0.1 [facility] Comment on above: Performed By: #### C MP #### [facility] [address] [address] [address] Ekta Funk Basophils/100 WBC (Bld) 0.4 % Normal 0.2-2.0 [facility] Comment on above: Performed By: #### C MP #### [facility] [address] [address] [address] Ekta Funk EO # 0.4 103/ul Normal 0.0-0.7 [facility] Comment on above: Performed By: #### C MP #### [facility] [address] [address] [address] Ekta Funk Eosinophils/100 WBC (Bld) 3.8 % Normal 0.9-7.0 [facility] Comment on above: Performed By: #### C MP #### [facility] [address] [place] [address] Dr. Ekta Funk Erythrocyte distribution width (RBC) [Ratio] 13.2 % Normal 11.0-15.0 [facility] Comment on above: Performed By: #### C MP #### [facility] [address] [place] [address] Dr. Ekta Funk Hematocrit (Bld) [Volume fraction] 34.0 % Critically low 36.0-48.0 [facility] Comment on above: Performed By: #### C MP #### [facility] [address] [place] [address] Dr. Ekta Funk Hemoglobin (Bld) [Mass/Vol] 11.5 g/dL Critically low 12.0-16.0 [facility] Comment on above: Performed By: #### C MP #### [facility] [address] [place] [address] Dr. Ekta Funk IG # 0.11 10e3/ul Critically high 0.00-0.03 [facility] Comment on above: Performed By: #### C MP #### [facility] [address] [place] [address] Dr. Ekta Funk IG % 1.2 % Critically high 0.0-0.5 [facility] Comment on above: Performed By: #### C MP #### [facility] [address] [address] [address] Ekta Funk LYMPH # 1.4 103/ul Normal 1.2-3.8 [facility] Comment on above: Performed By: #### C MP #### [facility] [address] [address] [address] Ekta Funk Lymphocytes/100 WBC (Bld) 14.9 % Critically low 20.5-60.0 [facility] Comment on above: Performed By: #### C MP #### [facility] [address] [place] [address] Dr. Ekta Funk MANUAL DIFF REQ NO Normal [facility] Comment on above: Performed By: #### C MP #### [facility] [address] [place] [address] Dr. Ekta Funk MCH (RBC) [Entitic mass] 32.5 pg Normal 26.7-34.0 [facility] Comment on above: Performed By: #### C MP #### [facility] [address] [place] [address] Dr. Ekta Funk MCHC (RBC) [Mass/Vol] 33.8 g/dL Normal 29.9-35.2 [facility] Comment on above: Performed By: #### C MP #### [facility] [address] [place] [address] Dr. Ekta Funk MCV (RBC) [Entitic vol] 96.0 fL Normal 81.0-99.0 [facility] Comment on above: Performed By: #### C MP #### [facility] [address] [place] [address] Dr. Ekta Funk MONO # 0.9 103/ul Critically high 0.3-0.8 [facility] Comment on above: Performed By: #### C MP #### [facility] [address] [place] [address] Dr. Ekta Funk Monocytes/100 WBC (Bld) 9.7 % Normal 1.7-12.0 [facility] Comment on above: Performed By: #### C MP #### [facility] [address] [address] [address] Ekta Funk NEUT # 6.4 103/ul Normal 1.4-6.5 [facility] Comment on above: Performed By: #### C MP #### [facility] [address] [address] [address] Ekta Funk Neutrophils/100 WBC (Bld) 70.0 % Normal 43.0-75.0 [facility] Comment on above: Performed By: #### C MP #### [facility] [address] [address] [address] Ekta Funk Platelet mean volume (Bld) [Entitic vol] 9.3 fL Critically low 9.5-13.5 [facility] Comment on above: Performed By: #### C MP #### [facility] [address] [address] [address] Ekta Funk PLT 308 103/ul Normal 150-450 [facility] Comment on above: Performed By: #### C MP #### [facility] [address] [address] [address] Ekta Funk RBC 3.54 106/ul Critically low 4.20-5.40 [facility] Comment on above: Performed By: #### C MP #### [facility] [address] [address] [address] Ekta Funk WBC 9.1 103/ul Normal 4.0-11.0 [facility] Comment on above: Performed By: #### C MP #### [facility] [address] [address] [address] Ekta Funk CPKon 11-24-2022 CK [Catalytic activity/Vol] 21 U/L Critically low 26-192 [facility] Comment on above: Performed By: #### B 12FOL, VITAD, IRON #### [facility] [address] [address] [address] STROKE HEAD WOon [...] by: VANESSA PARADA Date: 2022-11-24 11:09 Normal [facility] CTA HEAD WO W CONon 11-25-19 [...] VISHNU MARIE Date: 2022-11-24 12:41 Normal [facility] CULTURE URINEon 11-24-2022 CULTURE URINE Culture Observations : NO GROWTH. Normal [facility] Comment on above: Performed By: #### I NSULIN #### [facility] [address] [address] [address] Ekta Funk [facility] SARS-CoV-2 (COVID-19) RNA GANESH+probe Ql (Unsp spec) Not detected Normal NOT DETECTED [facility] Comment on above: Result Comment: When diagnostic [...] for this test is supported by the [place] of Health and Human Service's declaration that [...] used). Performed By: #### C VDTBH #### [facility] [address] [place] [address] Dr. Ekta Funk ER URINE PROFILEon 3 Bilirubin Ql (U) Negative Normal NEGATIVE [facility] Comment on above: Performed By: #### C BC #### [facility] [address] [place] [address] Dr. Ekta Funk Clarity (U) CLEAR Normal CLEAR [facility] Comment on above: Performed By: #### C BC #### [facility] [address] [place] [address] Dr. Ekta Funk Color (U) LT. YELLOW Normal YELLOW [facility] Comment on above: Performed By: #### C BC #### [facility] [address] [place] [address] Dr. Ekta COLÓN A micrscopic examination will be performed if indicated. Normal [facility] Comment on above: Performed By: #### C BC #### [facility] [address] [place] [address] Dr. Ekta Funk Glucose Ql (U) Negative Normal NEGATIVE [facility] Comment on above: Performed By: #### C BC #### [facility] [address] [place] [address] Dr. Ekta Funk Hemoglobin Ql (U) Negative Normal NEGATIVE [facility] Comment on above: Performed By: #### C BC #### [facility] [address] [place] [address] Dr. Ekta Funk Ketones Ql (U) Negative Normal NEGATIVE [facility] Comment on above: Performed By: #### C BC #### [facility] [address] [place] [address] Dr. Ekta Funk LEUKOCYTES Negative Normal NEGATIVE [facility] Comment on above: Performed By: #### C BC #### [facility] [address] [address] [address] Ekta Funk Nitrite Ql (U) Negative Normal NEGATIVE [facility] Comment on above: Performed By: #### C BC #### [facility] [address] [address] [address] Ekta Funk pH (U) 5.5 [pH] Normal 5-9 [facility] Comment on above: Performed By: #### C BC #### [facility] [address] [address] [address] Ekta Funk SPEC GRAVITY 1.020 Normal 1.005-<=1.025 [facility] Comment on above: Performed By: #### C BC #### [facility] [address] [place] [address] Dr. Ekta Funk UA PROTEIN Negative Normal NEGATIVE/ TRACE [facility] Comment on above: Performed By: #### C BC #### [facility] [address] [address] [address] Ekta Funk UR MICRO IND NOT INDICATED Normal [facility] Comment on above: Performed By: #### C BC #### [facility] [address] [place] [address] Dr. Ekta Funk Urobilinogen Qn (U) 0.2 {Ivan'U}/dL Normal 0.2 - 1. 0 [facility] Comment on above: Performed By: #### C BC #### [facility] [address] [place] [address] Dr. Ekta Funk GLYCOHEMOGLOBIN A1Con 2022 ADA RECOMMENDATION SEE BELOW Normal [facility] Comment on above: Result Comment: ADA RECOMMENDED LIMIT 4.0 - 6.0 ADA THERAPEUTIC TARGET < 7.0 ACTION SUGGESTED > 7.0 Performed By: #### B 12FOL, VITAD, IRON #### [facility] [address] [place] [address] Dr. Ekta Funk Glucose [Mass/Vol] 143 mg/dL Normal [facility] Comment on above: Performed By: #### B 12FOL, VITAD, IRON #### [facility] [address] [address] [address] Ekta Funk HbA1c (Bld) [Mass fraction] 6.6 % Critically high 4.5-6.2 [facility] Comment on above: Performed By: #### B 12FOL, VITAD, IRON #### [facility] [address] [place] [address] Dr. Ekta Funk LACTATE/LACTIC ACIDon 2022 Lactate [Moles/Vol] 1.6 mmol/L Normal 0.4-2.0 [facility] Comment on above: Performed By: #### C MP #### [facility] [address] [place] [address] Dr. Ekta Funk Lactate [Moles/Vol] 2.1 mmol/L Critically high 0.4-2.0 [facility] Comment on above: Performed By: #### B 12FOL, VITAD, IRON #### [facility] [address] [place] [address] Dr. Ekta Funk LIPASEon 11-24-2022 Lipase [Catalytic activity/Vol] 165.0 U/L Normal 73.0-393.0 [facility] Comment on above: Performed By: #### B 12FOL, VITAD, IRON #### [facility] [address] [place] [address] Dr. Ekta Funk LIPID PROFILEon 11-24-2022 CHOL-HDL RATIO NORM SEE BELOW Normal [facility] Comment on above: Result Comment: 3.3 - 4.4 LOW RISK 4.4 - 7.1 AVERAGE RISK 7.1 - 11.0 MODERATE RISK >11.0 HIGH RISK Performed By: #### B 12FOL, VITAD, IRON #### [facility] [address] [place] [address] Dr. Ekta Funk Cholesterol [Mass/Vol] 248 mg/dL Critically high <=200 [facility] Comment on above: Performed By: #### B 12FOL, VITAD, IRON #### [facility] [address] [place], [place] [id number] Dr. Ekta Funk Cholesterol in HDL [Mass/Vol] 58 mg/dL Normal 40-60 [facility] Comment on above: Performed By: #### B 12FOL, VITAD, IRON #### [facility] [address] [address] [address] Ekta Funk Cholesterol in LDL [Mass/Vol] 165.6 mg/dL Normal [facility] Comment on above: Performed By: #### B 12FOL, VITAD, IRON #### [facility] [address] [address] [address] Ekta Funk Cholesterol.total/Ch olesterol in HDL [Mass ratio] 4.3 {ratio} Normal [facility] Comment on above: Performed By: #### B 12FOL, VITAD, IRON #### [facility] [address] [address] [address] Ekta Funk HDL NORMAL > or = 60 mg/dl - LO W CARDIOVASCULAR RISK <40 mg/dl - HIGH CARDIOVASCULAR RISK Normal [facility] Comment on above: Performed By: #### B 12FOL, VITAD, IRON #### [facility] [address] [address] [address] Ekta Funk LDL CALC NORMAL SEE BELOW Normal [facility] Comment on above: Result Comment: <100 mg/dl OPTIMAL 100 - 129 mg/dl NEAR OR ABOVE OPTIMAL 130 - 159 mg/dl BORDERLINE HIGH 160 - 189 mg/dl HIGH >190 mg/dl VERY HIGH Performed By: #### B 12FOL, VITAD, IRON #### [facility] [address] [place] [address] Dr. Ekta Funk Triglyceride [Mass/Vol] 122 mg/dL Normal <=150 [facility] Comment on above: Performed By: #### B 12FOL, VITAD, IRON #### [facility] [address] [address] [address] Ekta Funk VLDL CALC 24.4 mg/dL Normal [facility] Comment on above: Performed By: #### B 12FOL, VITAD, IRON #### [facility] [address] [address] [address] Ekta Funk MRI BRAIN WO CONon [...] by: RAVEN ELAINE Date: 2022-11-24 19:35 Normal [facility] PROF 14(COMP METB)on 023 Albumin [Mass/Vol] 2.7 g/dL Critically low 3.4-5.0 [facility] Comment on above: Performed By: #### B 12FOL, VITAD, IRON #### [facility] [address] [address] [address] Ekta Funk Albumin/Globulin [Mass ratio] 0.6 {ratio} Normal [facility] Comment on above: Performed By: #### B 12FOL, VITAD, IRON #### [facility] [address] [address] [address] Ekta Funk ALP [Catalytic activity/Vol] 85 U/L Normal 46-116 [facility] Comment on above: Performed By: #### B 12FOL, VITAD, IRON #### [facility] [address] [address] [address] Ekta Funk ALT [Catalytic activity/Vol] 18 U/L Normal 14-59 [facility] Comment on above: Performed By: #### B 12FOL, VITAD, IRON #### [facility] [address] [address] [address] Ekta Funk Anion gap [Moles/Vol] 18.9 mmol/L Normal [facility] Comment on above: Performed By: #### B 12FOL, VITAD, IRON #### [facility] [address] [address] [address] Ekta Funk AST [Catalytic activity/Vol] 16 U/L Normal 15-37 [facility] Comment on above: Performed By: #### B 12FOL, VITAD, IRON #### [facility] [address] [place] [address] Dr. Ekta Funk Bilirubin [Mass/Vol] 0.4 mg/dL Normal 0.2-1.0 [facility] Comment on above: Performed By: #### B 12FOL, VITAD, IRON #### [facility] [address] [address] [address] Ekta Funk Calcium [Mass/Vol] 9.5 mg/dL Normal 8.5-10.1 [facility] Comment on above: Performed By: #### B 12FOL, VITAD, IRON #### [facility] [address] [address] [address] Ekta Funk Chloride [Moles/Vol] 108 mmol/L Critically high 98-107 [facility] Comment on above: Performed By: #### B 12FOL, VITAD, IRON #### [facility] [address] [address] [address] Ekta Funk CO2 [Moles/Vol] 21.1 mmol/L Normal 21.0-32.0 [facility] Comment on above: Performed By: #### B 12FOL, VITAD, IRON #### [facility] [address] [address] [address] Ekta Funk Creatinine [Mass/Vol] 2.08 mg/dL Critically high 0.55-1.02 [facility] Comment on above: Performed By: #### B 12FOL, VITAD, IRON #### [facility] [address] [address] [address] Ekta Funk EGFR-AF BERMUDIAN 28 mL/min/1.73m2 Critically low >=60 [facility] Comment on above: Performed By: #### B 12FOL, VITAD, IRON #### [facility] [address] [address] [address] Ekta Funk EGFR-NON AF BERMUDIAN 23 mL/min/1.73m2 Critically low >=60 [facility] Comment on above: Performed By: #### B 12FOL, VITAD, IRON #### [facility] [address] [place] [address] Dr. Ekta Funk Globulin (S) [Mass/Vol] 4.6 g/dL Normal [facility] Comment on above: Performed By: #### B 12FOL, VITAD, IRON #### [facility] [address] [place] [address] Dr. Ekta Funk Glucose [Mass/Vol] 119 mg/dL Critically high 74-106 [facility] Comment on above: Performed By: #### B 12FOL, VITAD, IRON #### [facility] [address] [place] [address] Dr. Ekta Funk Potassium [Moles/Vol] 5.0 mmol/L Normal 3.5-5.1 [facility] Comment on above: Performed By: #### B 12FOL, VITAD, IRON #### [facility] [address] [place] [address] Dr. Ekta Funk Protein [Mass/Vol] 7.3 g/dL Normal 6.4-8.2 [facility] Comment on above: Performed By: #### B 12FOL, VITAD, IRON #### [facility] [address] [place] [address] Dr. Ekta Funk Sodium [Moles/Vol] 143 mmol/L Normal 136-145 [facility] Comment on above: Performed By: #### B 12FOL, VITAD, IRON #### [facility] [address] [address] [address] Ekta Funk Urea nitrogen [Mass/Vol] 37.0 mg/dL Critically high 7.0-18.0 [facility] Comment on above: Performed By: #### B 12FOL, VITAD, IRON #### [facility] [address] [place] [address] Dr. Ekta Funk Urea nitrogen/Creatinine [Mass ratio] 17.8 mg/mg Normal [facility] Comment on above: Performed By: #### B 12FOL, VITAD, IRON #### [facility] [address] [place] [address] Dr. Ekta Funk TROPONIN, HIGH SENSITIVITYon 11-24-2022 HSTROP 14.1 pg/mL Normal 4.0-51.3 [facility] Comment on above: Result Comment: CUT- OFF POINTS HAVE BEEN ESTABLISHED BASED ON THE FOURTH UNIVERSAL DEFINITIONS OF MYOCARDIAL INFARCTION. THE UPPER REFERENCE LIMIT (URL) OF TROPONIN, DEFINED THE 99TH PERCENTILE OF cTnI DISTRIBUTION IN A REFERENCE POPULATION, HAS BEEN CONFIRMED THE DECISION THRESHOLD FOR [place] DIAGNOSIS. Performed By: #### B ElviraFOL VITAD, IRON #### [facility] [address] [place] [address] Dr. Ekta Funk TSHon 11-24-2022 TSH 1.184 uIU/mL Normal 0.358-3.740 [facility] Comment on above: Performed By: #### B 12FOL VITAD, IRON #### [facility] [address] [place] [address] Dr. Ekta Funk XR CHEST 1 Von [...] NATALIIA TATE Date: 2022-11-24 11:00 Normal [facility] BNPon 11-13-2022 Natriuretic peptide B (Bld) [Mass/Vol] 565.0 pg/mL Normal <=900.0 [facility] Comment on above: Performed By: #### I NSULIN #### [facility] [address] [address] [address] Ekta Funk CBC AUTO DIFFon 11-13-2022 BASO # 0.1 103/ul Normal 0.0-0.1 [facility] Comment on above: Performed By: #### C BC #### [facility] [address] [place] [address] Dr. Ekta Funk Basophils/100 WBC (Bld) 0.6 % Normal 0.2-2.0 [facility] Comment on above: Performed By: #### C BC #### [facility] [address] [place] [address] Dr. Ekta Funk EO # 0.4 103/ul Normal 0.0-0.7 [facility] Comment on above: Performed By: #### C BC #### [facility] [address] [place] [address] Dr. Ekta Funk Eosinophils/100 WBC (Bld) 3.7 % Normal 0.9-7.0 [facility] Comment on above: Performed By: #### C BC #### [facility] [address] [place] [address] Dr. Ekta Funk Erythrocyte distribution width (RBC) [Ratio] 13.2 % Normal 11.0-15.0 [facility] Comment on above: Performed By: #### C BC #### [facility] [address] [place] [address] Dr. Ekta Funk Hematocrit (Bld) [Volume fraction] 36.7 % Normal 36.0-48.0 [facility] Comment on above: Performed By: #### C BC #### [facility] [address] [address] [address] Ekta Funk Hemoglobin (Bld) [Mass/Vol] 12.4 g/dL Normal 12.0-16.0 [facility] Comment on above: Performed By: #### C BC #### [facility] [address] [address] [address] Ekta Funk IG # 0.10 10e3/ul Critically high 0.00-0.03 [facility] Comment on above: Performed By: #### C BC #### [facility] [address] [place] [address] Dr. Ekta Funk IG % 1.0 % Critically high 0.0-0.5 [facility] Comment on above: Performed By: #### C BC #### [facility] [address] [place] [address] Dr. Ekta Funk LYMPH # 1.5 103/ul Normal 1.2-3.8 [facility] Comment on above: Performed By: #### C BC #### [facility] [address] [place] [address] Dr. Ekta Funk Lymphocytes/100 WBC (Bld) 14.9 % Critically low 20.5-60.0 [facility] Comment on above: Performed By: #### C BC #### [facility] [address] [place] [address] Dr. Ekta Funk MANUAL DIFF REQ NO Normal [facility] Comment on above: Performed By: #### C BC #### [facility] [address] [place] [address] Dr. Ekta Funk MCH (RBC) [Entitic mass] 32.8 pg Normal 26.7-34.0 [facility] Comment on above: Performed By: #### C BC #### [facility] [address] [place] [address] Dr. Ekta Funk MCHC (RBC) [Mass/Vol] 33.8 g/dL Normal 29.9-35.2 [facility] Comment on above: Performed By: #### C BC #### [facility] [address] [place] [address] Dr. Ekta Funk MCV (RBC) [Entitic vol] 97.1 fL Normal 81.0-99.0 [facility] Comment on above: Performed By: #### C BC #### [facility] [address] [place] [address] Dr. Ekta Funk MONO # 0.8 103/ul Normal 0.3-0.8 [facility] Comment on above: Performed By: #### C BC #### [facility] [address] [place] [address] Dr. Ekta Funk Monocytes/100 WBC (Bld) 7.7 % Normal 1.7-12.0 [facility] Comment on above: Performed By: #### C BC #### [facility] [address] [place] [address] Dr. Ekta Funk NEUT # 7.3 103/ul Critically high 1.4-6.5 [facility] Comment on above: Performed By: #### C BC #### [facility] [address] [place] [address] Dr. Ekta Funk Neutrophils/100 WBC (Bld) 72.1 % Normal 43.0-75.0 [facility] Comment on above: Performed By: #### C BC #### [facility] [address] [place] [address] Dr. Ekta Funk Platelet mean volume (Bld) [Entitic vol] 9.4 fL Critically low 9.5-13.5 [facility] Comment on above: Performed By: #### C BC #### [facility] [address] [place] [address] Dr. Ekta Funk PLT 251 103/ul Normal 150-450 [facility] Comment on above: Performed By: #### C BC #### [facility] [address] [place] [address] Dr. Ekta Funk RBC 3.78 106/ul Critically low 4.20-5.40 [facility] Comment on above: Performed By: #### C BC #### [facility] [address] [place] [address] Dr. Ekta Funk WBC 10.1 103/ul Normal 4.0-11.0 [facility] Comment on above: Performed By: #### C BC #### [facility] [address] [place] [address] Dr. Ekta Funk FREE THYROXINE INDEX T7on FTI 2.73 Normal 1.30-4.50 [facility] Comment on above: Performed By: #### I NSULIN #### [facility] [address] [place] [address] Dr. Ekta Funk T3U 35.0 % Normal 30.0-39.0 [facility] Comment on above: Performed By: #### I NSULIN #### [facility] [address] [place] [address] Dr. Ekta Funk T4 [Mass/Vol] 7.80 ug/dL Normal 4.80-13.90 [facility] Comment on above: Performed By: #### I NSULIN #### [facility] [address] [place] [address] Dr. Ekta Funk GLYCOHEMOGLOBIN A1Con 2022 ADA RECOMMENDATION SEE BELOW Normal [facility] Comment on above: Result Comment: ADA RECOMMENDED LIMIT 4.0 - 6.0 ADA THERAPEUTIC TARGET < 7.0 ACTION SUGGESTED > 7.0 Performed By: #### B 12FOL, VITAD, IRON #### [facility] [address] [place] [address] Dr. Ekta Funk Glucose [Mass/Vol] 134 mg/dL Normal [facility] Comment on above: Performed By: #### B 12FOL, VITAD, IRON #### [facility] [address] [place] [address] Dr. Ekta Funk HbA1c (Bld) [Mass fraction] 6.3 % Critically high 4.5-6.2 [facility] Comment on above: Performed By: #### B 12FOL, VITAD, IRON #### [facility] [address] [place] [address] Dr. Ekta Funk IRONon 11-13-2022 Iron [Mass/Vol] 55.0 ug/dL Normal 50.0-170.0 [facility] Comment on above: Performed By: #### B 12FOL, VITAD, IRON #### [facility] [id number] Ekta Funk LIPID PROFILEon 11-13-2022 CHOL-HDL RATIO NORM SEE BELOW Normal [place] Comment on above: Result Comment: 3.3 - 4.4 LOW RISK 4.4 - 7.1 AVERAGE RISK 7.1 - 11.0 MODERATE RISK >11.0 HIGH RISK Performed By: #### I NSULIN #### [facility] [address] [address] [address] Ekta Funk Cholesterol [Mass/Vol] 294 mg/dL Critically high <=200 [facility] Comment on above: Performed By: #### I NSULIN #### [facility] [address] [address] [address] Ekta Funk Cholesterol in HDL [Mass/Vol] 64 mg/dL Critically high 40-60 [facility] Comment on above: Performed By: #### I NSULIN #### [facility] [address] [address] [address] Ekta Funk Cholesterol in LDL [Mass/Vol] 197.2 mg/dL Normal [facility] Comment on above: Performed By: #### I NSULIN #### [facility] [address] [address] [address] Ekta Funk Cholesterol.total/Ch olesterol in HDL [Mass ratio] 4.6 {ratio} Normal [facility] Comment on above: Performed By: #### I NSULIN #### [facility] [id number] Ekta Funk HDL NORMAL > or = 60 mg/dl - LO W CARDIOVASCULAR RISK <40 mg/dl - HIGH CARDIOVASCULAR RISK Normal [facility] Comment on above: Performed By: #### I NSULIN #### [facility] [id number] Ekta Funk LDL CALC NORMAL SEE BELOW Normal [facility] Comment on above: Result Comment: <100 mg/dl OPTIMAL 100 - 129 mg/dl NEAR OR ABOVE OPTIMAL 130 - 159 mg/dl BORDERLINE HIGH 160 - 189 mg/dl HIGH >190 mg/dl VERY HIGH Performed By: #### I NSULIN #### [facility] [address] [place] [address] Dr. Ekta Funk Triglyceride [Mass/Vol] 164 mg/dL Critically high <=150 [facility] Comment on above: Performed By: #### I NSULIN #### [facility] [address] [place] [address] Dr. Ekta Funk VLDL CALC 32.8 mg/dL Normal [facility] Comment on above: Performed By: #### I NSULIN #### [facility] [address] [place] [address] Dr. Ekta Funk PROF 14(COMP METB)on 023 Albumin [Mass/Vol] 3.0 g/dL Critically low 3.4-5.0 [facility] Comment on above: Performed By: #### I NSULIN #### [facility] [address] [place] [address] Dr. Ekta Funk Albumin/Globulin [Mass ratio] 0.6 {ratio} Normal [facility] Comment on above: Performed By: #### I NSULIN #### [facility] [address] [place] [address] Dr. Ekta Funk ALP [Catalytic activity/Vol] 92 U/L Normal 46-116 [facility] Comment on above: Performed By: #### I NSULIN #### [facility] [address] [place] [address] Dr. Ekta Funk ALT [Catalytic activity/Vol] 26 U/L Normal 14-59 [facility] Comment on above: Performed By: #### I NSULIN #### [facility] [address] [place] [address] Dr. Ekta Funk Anion gap [Moles/Vol] 16.2 mmol/L Normal [facility] Comment on above: Performed By: #### I NSULIN #### [facility] Laboratory [address] [place] [address] Dr. Ekta Funk AST [Catalytic activity/Vol] 16 U/L Normal 15-37 [facility] Comment on above: Performed By: #### I NSULIN #### [facility] [address] [address] [address] Ekta Funk Bilirubin [Mass/Vol] 0.5 mg/dL Normal 0.2-1.0 [facility] Comment on above: Performed By: #### I NSULIN #### [facility] [address] [address] [address] Ekta Funk Calcium [Mass/Vol] 9.7 mg/dL Normal 8.5-10.1 [facility] Comment on above: Performed By: #### I NSULIN #### [facility] [address] [address] [address] Ekta Funk Chloride [Moles/Vol] 105 mmol/L Normal 98-107 [facility] Comment on above: Performed By: #### I NSULIN #### [facility] [address] [address] [address] Ekta Funk CO2 [Moles/Vol] 24.9 mmol/L Normal 21.0-32.0 [facility] Comment on above: Performed By: #### I NSULIN #### [facility] [address] [address] [address] Ekta Funk Creatinine [Mass/Vol] 2.18 mg/dL Critically high 0.55-1.02 [facility] Comment on above: Performed By: #### I NSULIN #### [facility] [address] [address] [address] Ekta Funk EGFR-AF BERMUDIAN 27 mL/min/1.73m2 Critically low >=60 [facility] Comment on above: Performed By: #### I NSULIN #### [facility] [address] [address] [address] Ekta Funk EGFR-NON AF BERMUDIAN 22 mL/min/1.73m2 Critically low >=60 [facility] Comment on above: Performed By: #### I NSULIN #### [facility] [address] [address] [address] Ekta Funk Globulin (S) [Mass/Vol] 4.7 g/dL Normal [facility] Comment on above: Performed By: #### I NSULIN #### [facility] [address] [address] [address] Ekta Funk Glucose [Mass/Vol] 114 mg/dL Critically high 74-106 [facility] Comment on above: Performed By: #### I NSULIN #### [facility] [address] [address] [address] Ekta Funk Potassium [Moles/Vol] 5.1 mmol/L Normal 3.5-5.1 [facility] Comment on above: Performed By: #### I NSULIN #### [facility] [address] [address] [address] Ekta Funk Protein [Mass/Vol] 7.7 g/dL Normal 6.4-8.2 [facility] Comment on above: Performed By: #### I NSULIN #### [facility] [address] [address] [address] Ekta Funk Sodium [Moles/Vol] 141 mmol/L Normal 136-145 [facility] Comment on above: Performed By: #### I NSULIN #### [facility] [address] [address] [address] Ekta Funk Urea nitrogen [Mass/Vol] 51.0 mg/dL Critically high 7.0-18.0 [facility] Comment on above: Performed By: #### I NSULIN #### [facility] [address] [address] [address] Ekta Funk Urea nitrogen/Creatinine [Mass ratio] 23.4 mg/mg Normal [facility] Comment on above: Performed By: #### I NSULIN #### [facility] [address] [address] [address] Ekta Funk TSHon 11-13-2022 TSH 0.935 uIU/mL Normal 0.358-3.740 [facility] Comment on above: Performed By: #### I NSULIN #### [facility] [address] [place] [address] Dr. Ekta Funk XR CHEST 2 Von [...] GODWIN BECK Date: 2022-11-13 15:40 Normal [facility] PROF 14(COMP METB)on 023 Albumin [Mass/Vol] 3.0 g/dL Critically low 3.4-5.0 [facility] Comment on above: Performed By: #### B 12FOL, VITAD, IRON #### [facility] [address] [address] [address] Ekta Funk Albumin/Globulin [Mass ratio] 0.7 {ratio} Normal [facility] Comment on above: Performed By: #### B 12FOL, VITAD, IRON #### [facility] [address] [address] [address] Ekta Funk ALP [Catalytic activity/Vol] 89 U/L Normal 46-116 [facility] Comment on above: Performed By: #### B 12FOL, VITAD, IRON #### [facility] [address] [address] [address] Ekta Funk ALT [Catalytic activity/Vol] 29 U/L Normal 14-59 [facility] Comment on above: Performed By: #### B 12FOL, VITAD, IRON #### [facility] [address] [address] [address] Ekta Funk Anion gap [Moles/Vol] 15.2 mmol/L Normal [facility] Comment on above: Performed By: #### B 12FOL, VITAD, IRON #### [facility] [address] [address] [address] Ekta Funk AST [Catalytic activity/Vol] 14 U/L Critically low 15-37 [facility] Comment on above: Performed By: #### B 12FOL, VITAD, IRON #### [facility] [address] [place] [address] Dr. Ekta Funk Bilirubin [Mass/Vol] 0.4 mg/dL Normal 0.2-1.0 [facility] Comment on above: Performed By: #### B 12FOL, VITAD, IRON #### [facility] [address] [place] [address] Dr. Ekta Funk Calcium [Mass/Vol] 9.1 mg/dL Normal 8.5-10.1 [facility] Comment on above: Performed By: #### B 12FOL, VITAD, IRON #### [facility] [address] [place] [address] Dr. Ekta Funk Chloride [Moles/Vol] 106 mmol/L Normal 98-107 [facility] Comment on above: Performed By: #### B 12FOL, VITAD, IRON #### [facility] [address] [place] [address] Dr. Ekta Funk CO2 [Moles/Vol] 24.2 mmol/L Normal 21.0-32.0 [facility] Comment on above: Performed By: #### B 12FOL, VITAD, IRON #### [facility] [address] [place] [address] Dr. Ekta Funk Creatinine [Mass/Vol] 1.89 mg/dL Critically high 0.55-1.02 [facility] Comment on above: Performed By: #### B 12FOL, VITAD, IRON #### [facility] [address] [place] [address] Dr. Ekta Funk EGFR-AF BERMUDIAN 32 mL/min/1.73m2 Critically low >=60 [facility] Comment on above: Performed By: #### B 12FOL, VITAD, IRON #### [facility] [address] [place] [address] Dr. Ekta Funk EGFR-NON AF BERMUDIAN 26 mL/min/1.73m2 Critically low >=60 [facility] Comment on above: Performed By: #### B 12FOL, VITAD, IRON #### [facility] [address] [address] [address] Ekta Funk Globulin (S) [Mass/Vol] 4.1 g/dL Normal [facility] Comment on above: Performed By: #### B 12FOL, VITAD, IRON #### [facility] [address] [address] [address] Ekta Funk Glucose [Mass/Vol] 108 mg/dL Critically high 74-106 [facility] Comment on above: Performed By: #### B 12FOL, VITAD, IRON #### [facility] [address] [place] [address] Dr. Ekta Funk Potassium [Moles/Vol] 4.4 mmol/L Normal 3.5-5.1 [facility] Comment on above: Performed By: #### B 12FOL, VITAD, IRON #### [facility] [address] [place] [address] Dr. Ekta Funk Protein [Mass/Vol] 7.1 g/dL Normal 6.4-8.2 [facility] Comment on above: Performed By: #### B 12FOL, VITAD, IRON #### [facility] [address] [place] [address] Dr. Ekta Funk Sodium [Moles/Vol] 141 mmol/L Normal 136-145 [facility] Comment on above: Performed By: #### B 12FOL, VITAD, IRON #### [facility] [address] [address] [address] Ekta Funk Urea nitrogen [Mass/Vol] 40.0 mg/dL Critically high 7.0-18.0 [facility] Comment on above: Performed By: #### B 12FOL, VITAD, IRON #### [facility] [address] [place] [address] Dr. Ekta Funk Urea nitrogen/Creatinine [Mass ratio] 21.2 mg/mg Normal [facility] Comment on above: Performed By: #### B 12FOL, VITAD, IRON #### [facility] [address] [place] [address] Dr. Ekta Funk BNPon 10-23-2022 Natriuretic peptide B (Bld) [Mass/Vol] 507.0 pg/mL Normal <=900.0 [facility] Comment on above: Performed By: #### B 12FOL, VITAD, IRON #### [facility] [address] [place] [address] Dr. Ekta Funk CBC AUTO DIFFon 10-23-2022 BASO # 0.0 103/ul Normal 0.0-0.1 [facility] Comment on above: Performed By: #### C BC #### [facility] [address] [place] [address] Dr. Ekta Funk Basophils/100 WBC (Bld) 0.2 % Normal 0.2-2.0 [facility] Comment on above: Performed By: #### C BC #### [facility] [address] [place] [address] Dr. Ekta Funk EO # 0.1 103/ul Normal 0.0-0.7 [facility] Comment on above: Performed By: #### C BC #### [facility] [address] [place] [address] Dr. Ekta Funk Eosinophils/100 WBC (Bld) 1.1 % Normal 0.9-7.0 [facility] Comment on above: Performed By: #### C BC #### [facility] [address] [place] [address] Dr. Ekta Funk Erythrocyte distribution width (RBC) [Ratio] 12.8 % Normal 11.0-15.0 [facility] Comment on above: Performed By: #### C BC #### [facility] [address] [place] [address] Dr. Ekta Funk Hematocrit (Bld) [Volume fraction] 37.1 % Normal 36.0-48.0 [facility] Comment on above: Performed By: #### C BC #### [facility] [address] [place] [address] Dr. Ekta Funk Hemoglobin (Bld) [Mass/Vol] 13.0 g/dL Normal 12.0-16.0 [facility] Comment on above: Performed By: #### C BC #### [facility] [address] [address] [address] Ekta Funk IG # 0.11 10e3/ul Critically high 0.00-0.03 [facility] Comment on above: Performed By: #### C BC #### [facility] [address] [address] [address] Ekta Funk IG % 1.1 % Critically high 0.0-0.5 [facility] Comment on above: Performed By: #### C BC #### [facility] [address] [address] [address] Ekta Funk LYMPH # 1.6 103/ul Normal 1.2-3.8 [facility] Comment on above: Performed By: #### C BC #### [facility] [address] [place] [address] Dr. Ekta Funk Lymphocytes/100 WBC (Bld) 15.6 % Critically low 20.5-60.0 [facility] Comment on above: Performed By: #### C BC #### [facility] [address] [place] [address] Dr. Ekta Funk MANUAL DIFF REQ NO Normal [facility] Comment on above: Performed By: #### C BC #### [facility] [address] [place] [address] Dr. Ekta Funk MCH (RBC) [Entitic mass] 32.8 pg Normal 26.7-34.0 [facility] Comment on above: Performed By: #### C BC #### [facility] [address] [place] [address] Dr. Ekta Funk MCHC (RBC) [Mass/Vol] 35.0 g/dL Normal 29.9-35.2 [facility] Comment on above: Performed By: #### C BC #### [facility] [address] [place] [address] Dr. Ekta Funk MCV (RBC) [Entitic vol] 93.7 fL Normal 81.0-99.0 [facility] Comment on above: Performed By: #### C BC #### [facility] [address] [address] [address] Ekta Funk MONO # 0.9 103/ul Critically high 0.3-0.8 [facility] Comment on above: Performed By: #### C BC #### [facility] [address] [address] [address] Ekta Funk Monocytes/100 WBC (Bld) 8.3 % Normal 1.7-12.0 [facility] Comment on above: Performed By: #### C BC #### [facility] [address] [address] [address] Ekta Funk NEUT # 7.5 103/ul Critically high 1.4-6.5 [facility] Comment on above: Performed By: #### C BC #### [facility] [address] [address] [address] Ekta Funk Neutrophils/100 WBC (Bld) 73.7 % Normal 43.0-75.0 [facility] Comment on above: Performed By: #### C BC #### [facility] [address] [address] [address] Ekta Funk Platelet mean volume (Bld) [Entitic vol] 10.3 fL Normal 9.5-13.5 [facility] Comment on above: Performed By: #### C BC #### [facility] [address] [address] [address] Ekta Funk PLT 135 103/ul Critically low 150-450 [facility] Comment on above: Performed By: #### C BC #### [facility] [address] [address] [address] Ekta Funk RBC 3.96 106/ul Critically low 4.20-5.40 [facility] Comment on above: Performed By: #### C BC #### [facility] [address] [address] [address] Ekta Funk WBC 10.2 103/ul Normal 4.0-11.0 [facility] Comment on above: Performed By: #### C BC #### [facility] [address] [place] [address] Dr. Ekta Funk PROF 14(COMP METB)on 023 Albumin [Mass/Vol] 2.7 g/dL Critically low 3.4-5.0 [facility] Comment on above: Performed By: #### B 12FOL, VITAD, IRON #### [facility] [address] [place] [address] Dr. Ekta Funk Albumin/Globulin [Mass ratio] 0.8 {ratio} Normal [facility] Comment on above: Performed By: #### B 12FOL, VITAD, IRON #### [facility] [address] [place] [address] Dr. Ekta Funk ALP [Catalytic activity/Vol] 74 U/L Normal 46-116 [facility] Comment on above: Performed By: #### B 12FOL, VITAD, IRON #### [facility] [address] [place] [address] Dr. Ekta Funk ALT [Catalytic activity/Vol] 26 U/L Normal 14-59 [facility] Comment on above: Performed By: #### B 12FOL, VITAD, IRON #### [facility] [address] [place] [address] Dr. Ekta Funk Anion gap [Moles/Vol] 16.5 mmol/L Normal [facility] Comment on above: Performed By: #### B 12FOL, VITAD, IRON #### [facility] [address] [place] [address] Dr. Ekta Funk AST [Catalytic activity/Vol] 15 U/L Normal 15-37 [facility] Comment on above: Performed By: #### B 12FOL, VITAD, IRON #### [facility] [address] [place] [address] Dr. Ekta Funk Bilirubin [Mass/Vol] 0.4 mg/dL Normal 0.2-1.0 [facility] Comment on above: Performed By: #### B 12FOL, VITAD, IRON #### [facility] [address] [place] [address] Dr. Ekta Funk Calcium [Mass/Vol] 8.1 mg/dL Critically low 8.5-10.1 [facility] Comment on above: Performed By: #### B 12FOL, VITAD, IRON #### [facility] [address] [address] [address] Ekta Funk Chloride [Moles/Vol] 96 mmol/L Critically low 98-107 [facility] Comment on above: Performed By: #### B 12FOL, VITAD, IRON #### [facility] [address] [address] [address] Ekta Funk CO2 [Moles/Vol] 26.1 mmol/L Normal 21.0-32.0 [facility] Comment on above: Performed By: #### B 12FOL, VITAD, IRON #### [facility] [address] [place] [address] Dr. Ekta Funk Creatinine [Mass/Vol] 3.28 mg/dL Critically high 0.55-1.02 [facility] Comment on above: Performed By: #### B 12FOL, VITAD, IRON #### [facility] [address] [address] [address] Ekta Funk EGFR-AF BERMUDIAN 17 mL/min/1.73m2 Critically low >=60 [facility] Comment on above: Performed By: #### B 12FOL, VITAD, IRON #### [facility] [address] [address] [address] Ekta Funk EGFR-NON AF BERMUDIAN 14 mL/min/1.73m2 Critically low >=60 [facility] Comment on above: Performed By: #### B 12FOL, VITAD, IRON #### [facility] [address] [address] [address] Ekta Funk Globulin (S) [Mass/Vol] 3.6 g/dL Normal [facility] Comment on above: Performed By: #### B 12FOL, VITAD, IRON #### [facility] [address] [address] [address] Ekta Funk Glucose [Mass/Vol] 132 mg/dL Critically high 74-106 [facility] Comment on above: Performed By: #### B 12FOL, VITAD, IRON #### [facility] [address] [place] [address] Dr. Ekta Funk Potassium [Moles/Vol] 4.6 mmol/L Normal 3.5-5.1 [facility] Comment on above: Performed By: #### B 12FOL, VITAD, IRON #### [facility] [address] [place] [address] Dr. Ekta Funk Protein [Mass/Vol] 6.3 g/dL Critically low 6.4-8.2 [facility] Comment on above: Performed By: #### B 12FOL, VITAD, IRON #### [facility] [address] [place] [address] Dr. Ekta Funk Sodium [Moles/Vol] 134 mmol/L Critically low 136-145 [facility] Comment on above: Performed By: #### B 12FOL, VITAD, IRON #### [facility] [address] [place] [address] Dr. Ekta Funk Urea nitrogen [Mass/Vol] 74.0 mg/dL Critically high 7.0-18.0 [facility] Comment on above: Performed By: #### B 12FOL, VITAD, IRON #### [facility] [address] [place] [address] Dr. Ekta Funk Urea nitrogen/Creatinine [Mass ratio] 22.6 mg/mg Normal [facility] Comment on above: Performed By: #### B 12FOL, VITAD, IRON #### [facility] [address] [place] [address] Dr. Ekta Funk BNPon 10-22-2022 Natriuretic peptide B (Bld) [Mass/Vol] 1411.0 pg/mL Critically high <=900.0 [facility] Comment on above: Performed By: #### B 12FOL, VITAD, IRON #### [facility] [address] [place] [address] Dr. Ekta Funk CBC AUTO DIFFon 10-22-2022 BASO # 0.0 103/ul Normal 0.0-0.1 [facility] Comment on above: Performed By: #### B 12FOL, VITAD, IRON #### [facility] [address] [place] [address] Dr. Ekta Funk Basophils/100 WBC (Bld) 0.3 % Normal 0.2-2.0 [facility] Comment on above: Performed By: #### B 12FOL, VITAD, IRON #### [facility] [address] [place] [address] Dr. Ekta Funk EO # 0.1 103/ul Normal 0.0-0.7 [facility] Comment on above: Performed By: #### B 12FOL, VITAD, IRON #### [facility] [address] [place] [address] Dr. Ekta Funk Eosinophils/100 WBC (Bld) 0.6 % Critically low 0.9-7.0 [facility] Comment on above: Performed By: #### B 12FOL, VITAD, IRON #### [facility] [address] [place] [address] Dr. Ekta Funk Erythrocyte distribution width (RBC) [Ratio] 12.9 % Normal 11.0-15.0 [facility] Comment on above: Performed By: #### B 12FOL, VITAD, IRON #### [facility] [address] [place] [address] Dr. Ekta Funk Hematocrit (Bld) [Volume fraction] 40.8 % Normal 36.0-48.0 [facility] Comment on above: Performed By: #### B 12FOL, VITAD, IRON #### [facility] [address] [place] [address] Dr. Ekta Funk Hemoglobin (Bld) [Mass/Vol] 14.0 g/dL Normal 12.0-16.0 [facility] Comment on above: Performed By: #### B 12FOL, VITAD, IRON #### [facility] [address] [place] [address] Dr. Ekta Funk IG # 0.09 10e3/ul Critically high 0.00-0.03 [facility] Comment on above: Performed By: #### B 12FOL, VITAD, IRON #### [facility] [address] [place] [address] Dr. Ekta Funk IG % 0.8 % Critically high 0.0-0.5 [facility] Comment on above: Performed By: #### B 12FOL, VITAD, IRON #### [facility] [address] [place] [address] Dr. Ekta Funk LYMPH # 1.8 103/ul Normal 1.2-3.8 [facility] Comment on above: Performed By: #### B 12FOL, VITAD, IRON #### [facility] [address] [place] [address] Dr. Ekta Funk Lymphocytes/100 WBC (Bld) 16.2 % Critically low 20.5-60.0 [facility] Comment on above: Performed By: #### B 12FOL, VITAD, IRON #### [facility] [address] [place] [address] Dr. Ekta Funk MANUAL DIFF REQ NO Normal [facility] Comment on above: Performed By: #### B 12FOL, VITAD, IRON #### [facility] [address] [place] [address] Dr. Ekta Funk MCH (RBC) [Entitic mass] 32.3 pg Normal 26.7-34.0 [facility] Comment on above: Performed By: #### B 12FOL, VITAD, IRON #### [facility] [address] [place] [address] Dr. Ekta Funk MCHC (RBC) [Mass/Vol] 34.3 g/dL Normal 29.9-35.2 [facility] Comment on above: Performed By: #### B 12FOL, VITAD, IRON #### [facility] [address] [place] [address] Dr. Ekta Funk MCV (RBC) [Entitic vol] 94.2 fL Normal 81.0-99.0 [facility] Comment on above: Performed By: #### B 12FOL, VITAD, IRON #### [facility] [address] [place] [address] Dr. Ekta Funk MONO # 0.8 103/ul Normal 0.3-0.8 [facility] Comment on above: Performed By: #### B 12FOL, VITAD, IRON #### [facility] [address] [place] [address] Dr. Ekta Funk Monocytes/100 WBC (Bld) 7.3 % Normal 1.7-12.0 [facility] Comment on above: Performed By: #### B 12FOL, VITAD, IRON #### [facility] [address] [place] [address] Dr. Ekta Funk NEUT # 8.1 103/ul Critically high 1.4-6.5 [facility] Comment on above: Performed By: #### B 12FOL, VITAD, IRON #### [facility] [address] [place] [address] Dr. Ekta Funk Neutrophils/100 WBC (Bld) 74.8 % Normal 43.0-75.0 [facility] Comment on above: Performed By: #### B 12FOL, VITAD, IRON #### [facility] [address] [place] [address] Dr. Ekta Funk Platelet mean volume (Bld) [Entitic vol] 9.8 fL Normal 9.5-13.5 [facility] Comment on above: Performed By: #### B 12FOL, VITAD, IRON #### [facility] [address] [place] [address] Dr. Ekta Funk PLT 226 103/ul Normal 150-450 [facility] Comment on above: Performed By: #### B 12FOL, VITAD, IRON #### [facility] [address] [place] [address] Dr. Ekta Funk RBC 4.33 106/ul Normal 4.20-5.40 [facility] Comment on above: Performed By: #### B 12FOL, VITAD, IRON #### [facility] [address] [place] [address] Dr. Ekta Funk WBC 10.9 103/ul Normal 4.0-11.0 [facility] Comment on above: Performed By: #### B 12FOL, VITAD, IRON #### [facility] [address] [place] [address] Dr. Ekta Funk PROF 14(COMP METB)on 023 Albumin [Mass/Vol] 3.1 g/dL Critically low 3.4-5.0 [facility] Comment on above: Performed By: #### B 12FOL, VITAD, IRON #### [facility] [address] [place] [address] Dr. Ekta Funk Albumin/Globulin [Mass ratio] 0.7 {ratio} Normal [facility] Comment on above: Performed By: #### B 12FOL, VITAD, IRON #### [facility] [address] [place] [address] Dr. Ekta Funk ALP [Catalytic activity/Vol] 81 U/L Normal 46-116 [facility] Comment on above: Performed By: #### B 12FOL, VITAD, IRON #### [facility] [address] [place] [address] Dr. Ekta Funk ALT [Catalytic activity/Vol] 30 U/L Normal 14-59 [facility] Comment on above: Performed By: #### B 12FOL, VITAD, IRON #### [facility] [address] [place] [address] Dr. Ekta Funk Anion gap [Moles/Vol] 17.3 mmol/L Normal [facility] Comment on above: Performed By: #### B 12FOL, VITAD, IRON #### [facility] [address] [place] [address] Dr. Ekta Funk AST [Catalytic activity/Vol] 11 U/L Critically low 15-37 [facility] Comment on above: Performed By: #### B 12FOL, VITAD, IRON #### [facility] [address] [place] [address] Dr. Ekta Funk Bilirubin [Mass/Vol] 0.5 mg/dL Normal 0.2-1.0 [facility] Comment on above: Performed By: #### B 12FOL, VITAD, IRON #### [facility] [address] [address] [address] Ekta Funk Calcium [Mass/Vol] 8.6 mg/dL Normal 8.5-10.1 [facility] Comment on above: Performed By: #### B 12FOL, VITAD, IRON #### [facility] [address] [place] [address] Dr. Ekta Funk Chloride [Moles/Vol] 95 mmol/L Critically low 98-107 [facility] Comment on above: Performed By: #### B 12FOL, VITAD, IRON #### [facility] [address] [place] [address] Dr. Ekta Funk CO2 [Moles/Vol] 27.3 mmol/L Normal 21.0-32.0 [facility] Comment on above: Performed By: #### B 12FOL, VITAD, IRON #### [facility] [address] [place] [address] Dr. Ekta Funk Creatinine [Mass/Vol] 3.17 mg/dL Critically high 0.55-1.02 [facility] Comment on above: Performed By: #### B 12FOL, VITAD, IRON #### [facility] [address] [place] [address] Dr. Ekta Funk EGFR-AF BERMUDIAN 17 mL/min/1.73m2 Critically low >=60 [facility] Comment on above: Performed By: #### B 12FOL, VITAD, IRON #### [facility] [address] [place] [address] Dr. Ekta Funk EGFR-NON AF BERMUDIAN 14 mL/min/1.73m2 Critically low >=60 [facility] Comment on above: Performed By: #### B 12FOL, VITAD, IRON #### [facility] [address] [place] [address] Dr. Ekta Funk Globulin (S) [Mass/Vol] 4.6 g/dL Normal [facility] Comment on above: Performed By: #### B 12FOL, VITAD, IRON #### [facility] [address] [address] [address] Ekta Funk Glucose [Mass/Vol] 139 mg/dL Critically high 74-106 [facility] Comment on above: Performed By: #### B 12FOL, VITAD, IRON #### [facility] [address] [place] [address] Dr. Ekta Funk Potassium [Moles/Vol] 4.6 mmol/L Normal 3.5-5.1 [facility] Comment on above: Performed By: #### B 12FOL, VITAD, IRON #### [facility] [address] [place] [address] Dr. Ekta Funk Protein [Mass/Vol] 7.7 g/dL Normal 6.4-8.2 [facility] Comment on above: Performed By: #### B 12FOL, VITAD, IRON #### [facility] [address] [place] [address] Dr. Ekta Funk Sodium [Moles/Vol] 135 mmol/L Critically low 136-145 [facility] Comment on above: Performed By: #### B 12FOL, VITAD, IRON #### [facility] [address] [place] [address] Dr. Ekta Funk Urea nitrogen [Mass/Vol] 73.0 mg/dL Critically high 7.0-18.0 [facility] Comment on above: Performed By: #### B 12FOL, VITAD, IRON #### [facility] [address] [place] [address] Dr. Ekta Funk Urea nitrogen/Creatinine [Mass ratio] 23.0 mg/mg Normal [facility] Comment on above: Performed By: #### B 12FOL, VITAD, IRON #### [facility] [address] [place] [address] Dr. Ekta Funk BNPon 10-21-2022 Natriuretic peptide B (Bld) [Mass/Vol] 2007.0 pg/mL Critically high <=900.0 [facility] Comment on above: Performed By: #### C MP #### [facility] [address] [address] [address] Ekta Funk CBC AUTO DIFFon 10-21-2022 BASO # 0.0 103/ul Normal 0.0-0.1 [facility] Comment on above: Performed By: #### C BC #### [facility] [address] [place] [address] Dr. Ekta Funk Basophils/100 WBC (Bld) 0.2 % Normal 0.2-2.0 [facility] Comment on above: Performed By: #### C BC #### [facility] [address] [place] [address] Dr. Ekta Funk EO # 0.1 103/ul Normal 0.0-0.7 [facility] Comment on above: Performed By: #### C BC #### [facility] [address] [place] [address] Dr. Ekta Funk Eosinophils/100 WBC (Bld) 0.9 % Normal 0.9-7.0 [facility] Comment on above: Performed By: #### C BC #### [facility] [address] [place] [address] Dr. Ekta Funk Erythrocyte distribution width (RBC) [Ratio] 12.8 % Normal 11.0-15.0 [facility] Comment on above: Performed By: #### C BC #### [facility] [address] [place] [address] Dr. Ekta Funk Hematocrit (Bld) [Volume fraction] 38.8 % Normal 36.0-48.0 [facility] Comment on above: Performed By: #### C BC #### [facility] [address] [place] [address] Dr. Ekta Funk Hemoglobin (Bld) [Mass/Vol] 13.3 g/dL Normal 12.0-16.0 [facility] Comment on above: Performed By: #### C BC #### [facility] [address] [place] [address] Dr. Ekta Funk IG # 0.08 10e3/ul Critically high 0.00-0.03 [facility] Comment on above: Performed By: #### C BC #### [facility] [address] [place] [address] Dr. Ekta Funk IG % 0.8 % Critically high 0.0-0.5 [facility] Comment on above: Performed By: #### C BC #### [facility] [address] [place] [address] Dr. Ekta Funk LYMPH # 1.7 103/ul Normal 1.2-3.8 [facility] Comment on above: Performed By: #### C BC #### [facility] [address] [place] [address] Dr. Ekta Funk Lymphocytes/100 WBC (Bld) 17.3 % Critically low 20.5-60.0 [facility] Comment on above: Performed By: #### C BC #### [facility] [address] [place] [address] Dr. Ekta Funk MANUAL DIFF REQ NO Normal [facility] Comment on above: Performed By: #### C BC #### [facility] [address] [place] [address] Dr. Ekta Funk MCH (RBC) [Entitic mass] 32.1 pg Normal 26.7-34.0 [facility] Comment on above: Performed By: #### C BC #### [facility] [address] [place] [address] Dr. Ekta Funk MCHC (RBC) [Mass/Vol] 34.3 g/dL Normal 29.9-35.2 [facility] Comment on above: Performed By: #### C BC #### [facility] [address] [place] [address] Dr. Ekta Funk MCV (RBC) [Entitic vol] 93.7 fL Normal 81.0-99.0 [facility] Comment on above: Performed By: #### C BC #### [facility] [address] [place] [address] Dr. Ekta Funk MONO # 0.6 103/ul Normal 0.3-0.8 [facility] Comment on above: Performed By: #### C BC #### [facility] [address] [address] [address] Ekta Funk Monocytes/100 WBC (Bld) 6.4 % Normal 1.7-12.0 [facility] Comment on above: Performed By: #### C BC #### [facility] [address] [place] [address] Dr. Ekta Funk NEUT # 7.4 103/ul Critically high 1.4-6.5 [facility] Comment on above: Performed By: #### C BC #### [facility] [address] [place] [address] Dr. Ekta Funk Neutrophils/100 WBC (Bld) 74.4 % Normal 43.0-75.0 [facility] Comment on above: Performed By: #### C BC #### [facility] [address] [place] [address] Dr. Ekta Funk Platelet mean volume (Bld) [Entitic vol] 9.8 fL Normal 9.5-13.5 [facility] Comment on above: Performed By: #### C BC #### [facility] [address] [place] [address] Dr. Ekta Funk PLT 193 103/ul Normal 150-450 [facility] Comment on above: Performed By: #### C BC #### [facility] [address] [place] [address] Dr. Ekta Funk RBC 4.14 106/ul Critically low 4.20-5.40 [facility] Comment on above: Performed By: #### C BC #### [facility] [address] [place] [address] Dr. Ekta Funk WBC 9.9 103/ul Normal 4.0-11.0 [facility] Comment on above: Performed By: #### C BC #### [facility] [address] [place] [address] Dr. Ekta Funk PROF 14(COMP METB)on 023 Albumin [Mass/Vol] 3.2 g/dL Critically low 3.4-5.0 [facility] Comment on above: Performed By: #### I NSULIN #### [facility] [address] [place] [address] Dr. Ekta Funk Albumin/Globulin [Mass ratio] 0.8 {ratio} Normal [facility] Comment on above: Performed By: #### I NSULIN #### [facility] [address] [place] [address] Dr. Ekta Funk ALP [Catalytic activity/Vol] 82 U/L Normal 46-116 [facility] Comment on above: Performed By: #### I NSULIN #### [facility] [address] [place] [address] Dr. Ekta Funk ALT [Catalytic activity/Vol] 38 U/L Normal 14-59 [facility] Comment on above: Performed By: #### I NSULIN #### [facility] [address] [place] [address] Dr. Ekta Funk Anion gap [Moles/Vol] 19.1 mmol/L Normal [facility] Comment on above: Performed By: #### I NSULIN #### [facility] [address] [place] [address] Dr. Ekta Funk AST [Catalytic activity/Vol] 19 U/L Normal 15-37 [facility] Comment on above: Performed By: #### I NSULIN #### [facility] [address] [place] [address] Dr. Ekta Funk Bilirubin [Mass/Vol] 0.4 mg/dL Normal 0.2-1.0 [facility] Comment on above: Performed By: #### I NSULIN #### [facility] [address] [place] [address] Dr. Ekta Funk Calcium [Mass/Vol] 9.2 mg/dL Normal 8.5-10.1 [facility] Comment on above: Performed By: #### I NSULIN #### [facility] [address] [place] [address] Dr. Ekta Funk Chloride [Moles/Vol] 98 mmol/L Normal 98-107 [facility] Comment on above: Performed By: #### I NSULIN #### [facility] [address] [place] [address] Dr. Ekta Funk CO2 [Moles/Vol] 26.4 mmol/L Normal 21.0-32.0 [facility] Comment on above: Performed By: #### I NSULIN #### [facility] [address] [address] [address] Ekta Funk Creatinine [Mass/Vol] 2.20 mg/dL Critically high 0.55-1.02 [facility] Comment on above: Performed By: #### I NSULIN #### [facility] [address] [address] [address] Ekta Funk EGFR-AF BERMUDIAN 26 mL/min/1.73m2 Critically low >=60 [facility] Comment on above: Performed By: #### I NSULIN #### [facility] [address] [place] [address] Dr. Ekta Funk EGFR-NON AF BERMUDIAN 22 mL/min/1.73m2 Critically low >=60 [facility] Comment on above: Performed By: #### I NSULIN #### [facility] [address] [address] [address] Ekta Funk Globulin (S) [Mass/Vol] 3.8 g/dL Normal [facility] Comment on above: Performed By: #### I NSULIN #### [facility] [address] [place] [address] Dr. Ekta Funk Glucose [Mass/Vol] 142 mg/dL Critically high 74-106 [facility] Comment on above: Performed By: #### I NSULIN #### [facility] [address] [address] [address] Ekta Funk Potassium [Moles/Vol] 4.5 mmol/L Normal 3.5-5.1 [facility] Comment on above: Performed By: #### I NSULIN #### [facility] [address] [place] [address] Dr. Ekat Funk Protein [Mass/Vol] 7.0 g/dL Normal 6.4-8.2 [facility] Comment on above: Performed By: #### I NSULIN #### [facility] [address] [address] [address] Ekta Fnuk Sodium [Moles/Vol] 139 mmol/L Normal 136-145 [facility] Comment on above: Performed By: #### I NSULIN #### [facility] [address] [address] [address] Ekta Funk Urea nitrogen [Mass/Vol] 57.0 mg/dL Critically high 7.0-18.0 [facility] Comment on above: Performed By: #### I NSULIN #### [facility] [address] [address] [address] Ekta Funk Urea nitrogen/Creatinine [Mass ratio] 25.9 mg/mg Normal [facility] Comment on above: Performed By: #### I NSULIN #### [facility] [address] [place] [address] Dr. Ekta Funk T3, TOTAL (TRIIODOTHYRONINE) on 10-21-2022 T3, TOTAL 63 ng/dL Critically low 71-180 [facility] Comment on above: Performed By: #### C MP #### [facility] [address] [place] [address] Dr. Ekta Funk XR ABD FLAT_UPon 10-21-2022 [...] by: VISHNU MARIE Date: 2022-10-21 11:42 Normal [facility] XR CHEST 2 Von 10-21-2022 XR [...] by: CHRISTIANO MORALES Date: 2022-10-21 11:23 Normal [facility] BNPon 10-20-2022 Natriuretic peptide B (Bld) [Mass/Vol] 2512.0 pg/mL Critically high <=900.0 [facility] Comment on above: Performed By: #### B ElviraFOL VITAD, IRON #### [facility] [address] [place] [address] Dr. Ekta Funk CARDIAC BRITTANIE ADMITon 023 CK [Catalytic activity/Vol] 35 U/L Normal 26-192 [facility] Comment on above: Performed By: #### B CAROLYN LAUGHLIN, IRON #### [facility] [address] [place] [address] Dr. Ekta Funk CK.MB [Mass/Vol] 0.64 ng/mL Normal <=3.60 [facility] Comment on above: Performed By: #### B ElviraFONENO LuiAD, IRON #### [facility] [address] [place] [address] Dr. Ekta Funk HSTROP 28.1 pg/mL Normal 4.0-51.3 [facility] Comment on above: Result Comment: CUT- OFF POINTS HAVE BEEN ESTABLISHED BASED ON THE FOURTH UNIVERSAL DEFINITIONS OF MYOCARDIAL INFARCTION. THE UPPER REFERENCE LIMIT (URL) OF TROPONIN, DEFINED THE 99TH PERCENTILE OF cTnI DISTRIBUTION IN A REFERENCE POPULATION, HAS BEEN CONFIRMED THE DECISION THRESHOLD FOR [place] DIAGNOSIS. Performed By: #### B 12FOL VITAD, IRON #### [facility] [address] [place] [address] Dr. Ekta Funk EVELYN 57 ng/mL Normal 9-82 [facility] Comment on above: Performed By: #### B ElviraFOL VITAD, IRON #### [facility] [address] [place] [address] Dr. Ekta Funk CBC AUTO DIFFon 10-20-2022 BASO # 0.0 103/ul Normal 0.0-0.1 [facility] Comment on above: Performed By: #### C BC #### [facility] [address] [address] [address] Ekta Funk Basophils/100 WBC (Bld) 0.2 % Normal 0.2-2.0 [facility] Comment on above: Performed By: #### C BC #### [facility] [address] [place] [address] Dr. Ekta Funk EO # 0.2 103/ul Normal 0.0-0.7 [facility] Comment on above: Performed By: #### C BC #### [facility] [address] [place] [address] Dr. Ekta Funk Eosinophils/100 WBC (Bld) 1.4 % Normal 0.9-7.0 [facility] Comment on above: Performed By: #### C BC #### [facility] [address] [place] [address] Dr. Ekta Funk Erythrocyte distribution width (RBC) [Ratio] 12.9 % Normal 11.0-15.0 [facility] Comment on above: Performed By: #### C BC #### [facility] [address] [place] [address] Dr. Ekta Funk Hematocrit (Bld) [Volume fraction] 34.7 % Critically low 36.0-48.0 [facility] Comment on above: Performed By: #### C BC #### [facility] [address] [place] [address] Dr. Ekta Funk Hemoglobin (Bld) [Mass/Vol] 11.8 g/dL Critically low 12.0-16.0 [facility] Comment on above: Performed By: #### C BC #### [facility] [address] [place] [address] Dr. Ekta Funk IG # 0.09 10e3/ul Critically high 0.00-0.03 [facility] Comment on above: Performed By: #### C BC #### [facility] [address] [place] [address] Dr. Ekta Funk IG % 0.8 % Critically high 0.0-0.5 [facility] Comment on above: Performed By: #### C BC #### [facility] [address] [place] [address] Dr. Ekta Funk LYMPH # 1.9 103/ul Normal 1.2-3.8 [facility] Comment on above: Performed By: #### C BC #### [facility] [address] [place] [address] Dr. Ekta Funk Lymphocytes/100 WBC (Bld) 16.1 % Critically low 20.5-60.0 [facility] Comment on above: Performed By: #### C BC #### [facility] [address] [place] [address] Dr. Ekta Funk MANUAL DIFF REQ NO Normal [facility] Comment on above: Performed By: #### C BC #### [facility] [address] [place] [address] Dr. Ekta Funk MCH (RBC) [Entitic mass] 32.6 pg Normal 26.7-34.0 [facility] Comment on above: Performed By: #### C BC #### [facility] [address] [place] [address] Dr. Ekta Funk MCHC (RBC) [Mass/Vol] 34.0 g/dL Normal 29.9-35.2 [facility] Comment on above: Performed By: #### C BC #### [facility] [address] [place] [address] Dr. Ekta Funk MCV (RBC) [Entitic vol] 95.9 fL Normal 81.0-99.0 [facility] Comment on above: Performed By: #### C BC #### [facility] [address] [place] [address] Dr. Ekta Funk MONO # 0.8 103/ul Normal 0.3-0.8 [facility] Comment on above: Performed By: #### C BC #### [facility] [address] [place] [address] Dr. Ekta Funk Monocytes/100 WBC (Bld) 7.0 % Normal 1.7-12.0 [facility] Comment on above: Performed By: #### C BC #### [facility] [address] [place] [address] Dr. Ekta Funk NEUT # 8.8 103/ul Critically high 1.4-6.5 [facility] Comment on above: Performed By: #### C BC #### [facility] [address] [place] [address] Dr. Ekta Funk Neutrophils/100 WBC (Bld) 74.5 % Normal 43.0-75.0 [facility] Comment on above: Performed By: #### C BC #### [facility] [address] [place] [address] Dr. Ekta Funk Platelet mean volume (Bld) [Entitic vol] 9.8 fL Normal 9.5-13.5 [facility] Comment on above: Performed By: #### C BC #### [facility] [address] [place] [address] Dr. Ekta Funk PLT 203 103/ul Normal 150-450 [facility] Comment on above: Performed By: #### C BC #### [facility] [address] [place] [address] Dr. Ekta Funk RBC 3.62 106/ul Critically low 4.20-5.40 [facility] Comment on above: Performed By: #### C BC #### [facility] [address] [place] [address] Dr. Ekta Funk WBC 11.8 103/ul Critically high 4.0-11.0 [facility] Comment on above: Performed By: #### C BC #### [facility] [address] [place] [address] Dr. Ekta Funk CULTURE URINEon 10-20-2022 CULTURE URINE Culture Observations : NO GROWTH. Normal [facility] Comment on above: Performed By: #### I NSULIN #### [facility] [address] [place] [address] Dr. Ekta Funk [facility] SARS-CoV-2 (COVID-19) RNA GANESH+probe Ql (Unsp spec) Not detected Normal NOT DETECTED [facility] Comment on above: Result Comment: When diagnostic [...] for this test is supported by the [place] of [employer] and [employer] Service's declaration that [...] By: #### B 12FOL, VITCAMI, AURELIA #### [facility] [address] [place] [address] Dr. Ekta Funk ECHOCARDIO M/2D COMPLETEon 0 10-20-2022 ECHOCARDIO M/2D COMPLETE Patient: SHEILA MAC Exam Date: 10/20/2022 : 1950 Gender:F Ordering : DR KRZYSZTOF HARP . Admission #: [id number] Family : Order #: [id number] CLICK HERE TO VIEW EXAM ECHOCARDIOGRAM REPORT [...] Mckay M.D. on 10/20/2022 at 14:57 Normal [facility] PROF 14(COMP METB)on 023 Albumin [Mass/Vol] 2.8 g/dL Critically low 3.4-5.0 [facility] Comment on above: Performed By: #### B 12FOL, VITAD, IRON #### [facility] [address] [address] [address] Ekta Funk Albumin/Globulin [Mass ratio] 0.7 {ratio} Normal [facility] Comment on above: Performed By: #### B 12FOL, VITAD, IRON #### [facility] [address] [address] [address] Ekta Funk ALP [Catalytic activity/Vol] 84 U/L Normal 46-116 [facility] Comment on above: Performed By: #### B 12FOL, VITAD, IRON #### [facility] [address] [address] [address] Ekta Funk ALT [Catalytic activity/Vol] 29 U/L Normal 14-59 [facility] Comment on above: Performed By: #### B 12FOL, VITAD, IRON #### [facility] [address] [address] [address] Ekta Funk Anion gap [Moles/Vol] 15.9 mmol/L Normal [facility] Comment on above: Performed By: #### B 12FOL, VITAD, IRON #### [facility] [address] [address] [address] Ekta Funk AST [Catalytic activity/Vol] 15 U/L Normal 15-37 [facility] Comment on above: Performed By: #### B 12FOL, VITAD, IRON #### [facility] [address] [address] [address] Ekta Funk Bilirubin [Mass/Vol] 0.3 mg/dL Normal 0.2-1.0 [facility] Comment on above: Performed By: #### B 12FOL, VITAD, IRON #### [facility] [address] [place] [address] Dr. Ekta Funk Calcium [Mass/Vol] 8.9 mg/dL Normal 8.5-10.1 [facility] Comment on above: Performed By: #### B 12FOL, VITAD, IRON #### [facility] [address] [place] [address] Dr. Ekta Funk Chloride [Moles/Vol] 103 mmol/L Normal 98-107 [facility] Comment on above: Performed By: #### B 12FOL, VITAD, IRON #### [facility] [address] [place] [address] Dr. Ekta Funk CO2 [Moles/Vol] 26.3 mmol/L Normal 21.0-32.0 [facility] Comment on above: Performed By: #### B 12FOL, VITAD, IRON #### [facility] [address] [place] [address] Dr. Ekta Funk Creatinine [Mass/Vol] 1.99 mg/dL Critically high 0.55-1.02 [facility] Comment on above: Performed By: #### B 12FOL, VITAD, IRON #### [facility] [address] [place] [address] Dr. Ekta Funk EGFR-AF BERMUDIAN 30 mL/min/1.73m2 Critically low >=60 [facility] Comment on above: Performed By: #### B 12FOL, VITAD, IRON #### [facility] [address] [place] [address] Dr. Ekta Funk EGFR-NON AF BERMUDIAN 24 mL/min/1.73m2 Critically low >=60 [facility] Comment on above: Performed By: #### B 12FOL, VITAD, IRON #### [facility] [address] [place] [address] Dr. Ekta Funk Globulin (S) [Mass/Vol] 4.1 g/dL Normal [facility] Comment on above: Performed By: #### B 12FOL, VITAD, IRON #### [facility] [address] [address] [address] Ekta Funk Glucose [Mass/Vol] 115 mg/dL Critically high 74-106 [facility] Comment on above: Performed By: #### B 12FOL, VITAD, IRON #### [facility] [address] [place] [address] Dr. Ekta Funk Potassium [Moles/Vol] 5.2 mmol/L Critically high 3.5-5.1 [facility] Comment on above: Performed By: #### B 12FOL, VITAD, IRON #### [facility] [address] [address] [address] Ekta Funk Protein [Mass/Vol] 6.9 g/dL Normal 6.4-8.2 [facility] Comment on above: Performed By: #### B 12FOL, VITAD, IRON #### [facility] [address] [place] [address] Dr. Ekta Funk Sodium [Moles/Vol] 140 mmol/L Normal 136-145 [facility] Comment on above: Performed By: #### B 12FOL, VITAD, IRON #### [facility] [address] [address] [address] Ekta Funk Urea nitrogen [Mass/Vol] 45.0 mg/dL Critically high 7.0-18.0 [facility] Comment on above: Performed By: #### B 12FOL, VITAD, IRON #### [facility] [address] [place] [address] Dr. Ekta Funk Urea nitrogen/Creatinine [Mass ratio] 22.6 mg/mg Normal [facility] Comment on above: Performed By: #### B 12FOL, VITAD, IRON #### [facility] [address] [place] [address] Dr. Ekta Funk T4on 10-20-2022 T4 [Mass/Vol] 6.10 ug/dL Normal 4.80-13.90 [facility] Comment on above: Performed By: #### B 12FOL, VITAD, IRON #### [facility] [address] [place] [address] Dr. Ekta Funk TSHon 10-20-2022 TSH 1.336 uIU/mL Normal 0.358-3.740 [facility] Comment on above: Performed By: #### B 12FOL, VITAD, IRON #### [facility] [address] [place] [address] Dr. Ekta Funk UA RANDOM W/MICROSCOPICon BACTERIA TRACE Abnormal NONE SEEN [facility] Comment on above: Performed By: #### B 12FOL, VITAD, IRON #### [facility] [address] [place] [address] Dr. Ekta Funk Bilirubin Ql (U) Negative Normal NEGATIVE [facility] Comment on above: Performed By: #### B 12FOL, VITAD, IRON #### [facility] [address] [place] [address] Dr. Ekta Funk CAST NONE SEEN Normal NONE SEEN [facility] Comment on above: Performed By: #### B 12FOL, VITAD, IRON #### [facility] [address] [place] [address] Dr. Ekta Funk Clarity (U) CLEAR Normal CLEAR [facility] Comment on above: Performed By: #### B 12FOL, VITAD, IRON #### [facility] [address] [place] [address] Dr. Ekta Funk Color (U) LT. YELLOW Normal YELLOW [facility] Comment on above: Performed By: #### B 12FOL, VITAD, IRON #### [facility] [address] [place] [address] Dr. Ekta Funk Crystals LM Nom (Urine sed) NONE SEEN Normal NONE SEEN [facility] Comment on above: Performed By: #### B 12FOL, VITAD, IRON #### [facility] [address] [place] [address] Dr. Ekta Funk Epithelial cells LM Ql (Urine sed) RARE Normal NONE SEEN /RARE [facility] Comment on above: Performed By: #### B 12FOL, VITAD, IRON #### [facility] [address] [place] [address] Dr. Ekta Funk Glucose Ql (U) Negative Normal NEGATIVE [facility] Comment on above: Performed By: #### B 12FOL, VITAD, IRON #### [facility] [address] [address] [address] Ekta Funk Hemoglobin Ql (U) Negative Normal NEGATIVE [facility] Comment on above: Performed By: #### B 12FOL, VITAD, IRON #### [facility] [address] [address] [address] Ekta Funk Ketones Ql (U) Negative Normal NEGATIVE [facility] Comment on above: Performed By: #### B 12FOL, VITAD, IRON #### [facility] [address] [place] [address] Dr. Ekta Funk LEUKOCYTES Negative Normal NEGATIVE [facility] Comment on above: Performed By: #### B 12FOL, VITAD, IRON #### [facility] [address] [place] [address] Dr. Ekta Funk MUCOUS NONE SEEN Normal NONE SEEN [facility] Comment on above: Performed By: #### B 12FOL, VITAD, IRON #### [facility] [address] [address] [address] Ekta Funk Nitrite Ql (U) Negative Normal NEGATIVE [facility] Comment on above: Performed By: #### B 12FOL, VITAD, IRON #### [facility] [address] [address] [address] Ekta Funk pH (U) 6.0 [pH] Normal 5-9 [facility] Comment on above: Performed By: #### B 12FOL, VITAD, IRON #### [facility] [address] [place] [address] Dr. Ekta Funk RBC 0-2 Normal 0-2 [facility] Comment on above: Performed By: #### B 12FOL, VITAD, IRON #### [facility] [address] [place] [address] Dr. Ekta Funk SPEC GRAVITY <=1.005 Abnormal 1.005-<=1.025 [facility] Comment on above: Performed By: #### B 12FOL, VITAD, IRON #### [facility] [address] [place] [address] Dr. Ekta Funk UA PROTEIN Negative Normal NEGATIVE/ TRACE [facility] Comment on above: Performed By: #### B 12FOL, VITAD, IRON #### [facility] [address] [place] [address] Dr. Ekta Funk Urobilinogen Qn (U) 0.2 {Ivan'U}/dL Normal 0.2 - 1. 0 [facility] Comment on above: Performed By: #### B 12FOL, VITAD, IRON #### [facility] [address] [place] [address] Dr. Ekta Funk WBC NONE SEEN Normal NONE SEEN [facility] Comment on above: Performed By: #### B 12FOL, VITAD, IRON #### [facility] [address] [place] [address] Dr. Ekta Fnuk BNPon 10-19-2022 Natriuretic peptide B (Bld) [Mass/Vol] 1355.0 pg/mL Critically high <=900.0 [facility] Comment on above: Performed By: #### B 12FOL, VITAD, IRON #### [facility] [address] [place] [address] Dr. Ekta Funk INSULINon 10-19-2022 Insulin 12.4 uIU/mL Normal 2.6-24.9 [facility] Comment on above: Performed By: #### I NSULIN #### [facility] [address] [place] [address] Dr. Ekta Funk OCC BLD IMMUNO SCREENon OCCULT BLOOD Positive Abnormal NEGATIVE [facility] Comment on above: Performed By: #### B 12FOL, VITAD, IRON #### [facility] [address] [place] [address] Dr. Ekta Funk PROF CHEM 8 (BAS METB)on Anion gap [Moles/Vol] 15.8 mmol/L Normal [facility] Comment on above: Performed By: #### B 12FOL, VITAD, IRON #### [facility] [address] [address] [address] Ekta Funk Calcium [Mass/Vol] 8.8 mg/dL Normal 8.5-10.1 [facility] Comment on above: Performed By: #### B 12FOL, VITAD, IRON #### [facility] [address] [address] [address] Ekta Funk Chloride [Moles/Vol] 107 mmol/L Normal 98-107 [facility] Comment on above: Performed By: #### B 12FOL, VITAD, IRON #### [facility] [address] [place] [address] Dr. Ekta Funk CO2 [Moles/Vol] 21.5 mmol/L Normal 21.0-32.0 [facility] Comment on above: Performed By: #### B 12FOL, VITAD, IRON #### [facility] [address] [place] [address] Dr. Ekta Funk Creatinine [Mass/Vol] 1.62 mg/dL Critically high 0.55-1.02 [facility] Comment on above: Performed By: #### B 12FOL, VITAD, IRON #### [facility] [address] [place] [address] Dr. Ekta Funk EGFR-AF BERMUDIAN 38 mL/min/1.73m2 Critically low >=60 [facility] Comment on above: Performed By: #### B 12FOL, VITAD, IRON #### [facility] [address] [place] [address] Dr. Ekta Funk EGFR-NON AF BERMUDIAN 31 mL/min/1.73m2 Critically low >=60 [facility] Comment on above: Performed By: #### B 12FOL, VITAD, IRON #### [facility] [address] [place] [address] Dr. Ekta Funk Glucose [Mass/Vol] 134 mg/dL Critically high 74-106 [facility] Comment on above: Performed By: #### B 12FOL, VITAD, IRON #### [facility] [address] [address] [address] Ekta Funk Potassium [Moles/Vol] 5.3 mmol/L Critically high 3.5-5.1 [facility] Comment on above: Performed By: #### B 12FOL, VITAD, IRON #### [facility] [address] [address] [address] Ekta Funk Sodium [Moles/Vol] 139 mmol/L Normal 136-145 [facility] Comment on above: Performed By: #### B 12FOL, VITAD, IRON #### [facility] [address] [address] [address] Ekta Funk Urea nitrogen [Mass/Vol] 37.0 mg/dL Critically high 7.0-18.0 [facility] Comment on above: Performed By: #### B 12FOL, VITAD, IRON #### [facility] [address] [place] [address] Dr. Ekta Funk Urea nitrogen/Creatinine [Mass ratio] 22.8 mg/mg Normal [facility] Comment on above: Performed By: #### B 12FOL, VITAD, IRON #### [facility] [address] [place] [address] Dr. Ekta Funk TROPONIN, HIGH SENSITIVITYon 10-19-2022 HSTROP 53.2 pg/mL Critically high 4.0-51.3 [facility] Comment on above: Result Comment: CUT- OFF POINTS HAVE BEEN ESTABLISHED BASED ON THE FOURTH UNIVERSAL DEFINITIONS OF MYOCARDIAL INFARCTION. THE UPPER REFERENCE LIMIT (URL) OF TROPONIN, DEFINED THE 99TH PERCENTILE OF cTnI DISTRIBUTION IN A REFERENCE POPULATION, HAS BEEN CONFIRMED THE DECISION THRESHOLD FOR [place] DIAGNOSIS. Performed By: #### B 12FOL, VITAD, IRON #### [facility] [address] [place] [address] Dr. Ekta Funk BNPon 10-18-2022 Natriuretic peptide B (Bld) [Mass/Vol] 1386.0 pg/mL Critically high <=900.0 [facility] Comment on above: Performed By: #### C VDTBH #### [facility] [address] [place] [address] Dr. Ekta Funk CARDIAC BRITTANIE ADMITon 023 CK [Catalytic activity/Vol] 34 U/L Normal 26-192 [facility] Comment on above: Performed By: #### C VDTBH #### [facility] [address] [place] [address] Dr. Ekta Funk CK.MB [Mass/Vol] 1.43 ng/mL Normal <=3.60 [facility] Comment on above: Performed By: #### C VDTBH #### [facility] [address] [place] [address] Dr. Ekta Funk HSTROP 74.1 pg/mL Critically high 4.0-51.3 [facility] Comment on above: Result Comment: CUT- OFF POINTS HAVE BEEN ESTABLISHED BASED ON THE FOURTH UNIVERSAL DEFINITIONS OF MYOCARDIAL INFARCTION. THE UPPER REFERENCE LIMIT (URL) OF TROPONIN, DEFINED THE 99TH PERCENTILE OF cTnI DISTRIBUTION IN A REFERENCE POPULATION, HAS BEEN CONFIRMED THE DECISION THRESHOLD FOR [place] DIAGNOSIS. Performed By: #### C VDTBH #### [facility] [address] [place] [address] Dr. Ekta Funk EVELYN 52 ng/mL Normal 9-82 [facility] Comment on above: Performed By: #### C VDTBH #### [facility] [address] [place] [address] Dr. Ekta Funk CBC AUTO DIFFon 10-18-2022 BASO # 0.0 103/ul Normal 0.0-0.1 [facility] Comment on above: Performed By: #### C BC #### [facility] [address] [place] [address] Dr. Ekta Funk Basophils/100 WBC (Bld) 0.3 % Normal 0.2-2.0 [facility] Comment on above: Performed By: #### C BC #### [facility] [address] [place] [address] Dr. Ekta Funk EO # 0.1 103/ul Normal 0.0-0.7 [facility] Comment on above: Performed By: #### C BC #### [facility] [address] [place] [address] Dr. Ekta Funk Eosinophils/100 WBC (Bld) 0.9 % Normal 0.9-7.0 [facility] Comment on above: Performed By: #### C BC #### [facility] [address] [place] [address] Dr. Ekta Funk Erythrocyte distribution width (RBC) [Ratio] 13.2 % Normal 11.0-15.0 [facility] Comment on above: Performed By: #### C BC #### [facility] [address] [place] [address] Dr. Ekta Funk Hematocrit (Bld) [Volume fraction] 38.9 % Normal 36.0-48.0 [facility] Comment on above: Performed By: #### C BC #### [facility] [address] [place] [address] Dr. Ekta Funk Hemoglobin (Bld) [Mass/Vol] 12.4 g/dL Normal 12.0-16.0 [facility] Comment on above: Performed By: #### C BC #### [facility] [address] [place] [address] Dr. Ekta Funk IG # 0.08 10e3/ul Critically high 0.00-0.03 [facility] Comment on above: Performed By: #### C BC #### [facility] [address] [place] [address] Dr. Ekta Funk IG % 0.5 % Normal 0.0-0.5 [facility] Comment on above: Performed By: #### C BC #### [facility] [address] [place] [address] Dr. Ekta Funk LYMPH # 1.4 103/ul Normal 1.2-3.8 [facility] Comment on above: Performed By: #### C BC #### [facility] [address] [place] [address] Dr. Ekta Funk Lymphocytes/100 WBC (Bld) 9.6 % Critically low 20.5-60.0 [facility] Comment on above: Performed By: #### C BC #### [facility] [address] [place] [address] Dr. Ekta Funk MANUAL DIFF REQ NO Normal [facility] Comment on above: Performed By: #### C BC #### [facility] [address] [place] [address] Dr. Ekta Funk MCH (RBC) [Entitic mass] 32.3 pg Normal 26.7-34.0 [facility] Comment on above: Performed By: #### C BC #### [facility] [address] [place] [address] Dr. Ekta Funk MCHC (RBC) [Mass/Vol] 31.9 g/dL Normal 29.9-35.2 [facility] Comment on above: Performed By: #### C BC #### [facility] [address] [place] [address] Dr. Ekta Funk MCV (RBC) [Entitic vol] 101.3 fL Critically high 81.0-99.0 [facility] Comment on above: Performed By: #### C BC #### [facility] [address] [place] [address] Dr. Ekta Funk MONO # 0.9 103/ul Critically high 0.3-0.8 [facility] Comment on above: Performed By: #### C BC #### [facility] [address] [place] [address] Dr. Ekta Funk Monocytes/100 WBC (Bld) 6.3 % Normal 1.7-12.0 [facility] Comment on above: Performed By: #### C BC #### [facility] [address] [place] [address] Dr. Ekta Funk NEUT # 12.0 103/ul Critically high 1.4-6.5 [facility] Comment on above: Performed By: #### C BC #### [facility] [address] [place] [address] Dr. Ekta Funk Neutrophils/100 WBC (Bld) 82.4 % Critically high 43.0-75.0 [facility] Comment on above: Performed By: #### C BC #### [facility] [address] [place] [address] Dr. Ekta Funk Platelet mean volume (Bld) [Entitic vol] 9.7 fL Normal 9.5-13.5 [facility] Comment on above: Performed By: #### C BC #### [facility] [address] [place] [address] Dr. Ekta Funk PLT 176 103/ul Normal 150-450 [facility] Comment on above: Performed By: #### C BC #### [facility] [address] [place] [address] Dr. Ekta Funk RBC 3.84 106/ul Critically low 4.20-5.40 [facility] Comment on above: Performed By: #### C BC #### [facility] [address] [place] [address] Dr. Ekta Funk WBC 14.6 103/ul Critically high 4.0-11.0 [facility] Comment on above: Performed By: #### C BC #### [facility] [address] [place] [address] Dr. Etka Funk FREE THYROXINE INDEX T7on FTI 2.34 Normal 1.30-4.50 [facility] Comment on above: Performed By: #### C VDTBH #### [facility] [address] [place] [address] Dr. Ekta Funk T3U 36.0 % Normal 30.0-39.0 [facility] Comment on above: Performed By: #### C VDTBH #### [facility] [address] [place] [address] Dr. Ekta Funk T4 [Mass/Vol] 6.50 ug/dL Normal 4.80-13.90 [facility] Comment on above: Performed By: #### C VDTBH #### [facility] [address] [place] [address] Dr. Ekta Funk GLYCOHEMOGLOBIN A1Con 2022 ADA RECOMMENDATION SEE BELOW Normal [facility] Comment on above: Result Comment: ADA RECOMMENDED LIMIT 4.0 - 6.0 ADA THERAPEUTIC TARGET < 7.0 ACTION SUGGESTED > 7.0 Performed By: #### B 12FOL, VITAD, IRON #### [facility] [address] [address] [address] Ekta Funk Glucose [Mass/Vol] 140 mg/dL Normal [facility] Comment on above: Performed By: #### B 12FOL, VITAD, IRON #### [facility] [address] [address] [address] Ekta Funk HbA1c (Bld) [Mass fraction] 6.5 % Critically high 4.5-6.2 [facility] Comment on above: Performed By: #### B 12FOL, VITAD, IRON #### [facility] [address] [address] [address] Ekta Funk IRONon 10-18-2022 Iron [Mass/Vol] 62.0 ug/dL Normal 50.0-170.0 [facility] Comment on above: Performed By: #### B 12FOL, VITAD, IRON #### [facility] [address] [address] [address] Ekta Funk LIPID PROFILEon 10-18-2022 CHOL-HDL RATIO NORM SEE BELOW Normal [place] Comment on above: Result Comment: 3.3 - 4.4 LOW RISK 4.4 - 7.1 AVERAGE RISK 7.1 - 11.0 MODERATE RISK >11.0 HIGH RISK Performed By: #### C VDTBH #### [facility] [address] [address] [address] Ekta Funk Cholesterol [Mass/Vol] 242 mg/dL Critically high <=200 [facility] Comment on above: Performed By: #### C VDTBH #### [facility] [address] [address] [address] Ekta Funk Cholesterol in HDL [Mass/Vol] 74 mg/dL Critically high 40-60 [facility] Comment on above: Performed By: #### C VDTBH #### [facility] [address] [address] [address] Ekta Funk Cholesterol in LDL [Mass/Vol] 139.4 mg/dL Normal [facility] Comment on above: Performed By: #### C VDTBH #### [facility] [address] [place] [address] Dr. Ekta Funk Cholesterol.total/Ch olesterol in HDL [Mass ratio] 3.3 {ratio} Normal [facility] Comment on above: Performed By: #### C VDTBH #### [facility] [address] [address] [address] Ekta Funk HDL NORMAL > or = 60 mg/dl - LO W CARDIOVASCULAR RISK <40 mg/dl - HIGH CARDIOVASCULAR RISK Normal [facility] Comment on above: Performed By: #### C VDTBH #### [facility] [address] [place] [address] Dr. Ekta Funk LDL CALC NORMAL SEE BELOW Normal [facility] Comment on above: Result Comment: <100 mg/dl OPTIMAL 100 - 129 mg/dl NEAR OR ABOVE OPTIMAL 130 - 159 mg/dl BORDERLINE HIGH 160 - 189 mg/dl HIGH >190 mg/dl VERY HIGH Performed By: #### C VDTBH #### [facility] [address] [place] [address] Dr. Ekta Funk Triglyceride [Mass/Vol] 143 mg/dL Normal <=150 [facility] Comment on above: Performed By: #### C VDTBH #### [facility] [facility] [address] [place] [address] Dr. Ekta Funk VLDL CALC 28.6 mg/dL Normal [facility] Comment on above: Performed By: #### C VDTBH #### [facility] [address] [place] [address] Dr. Ekta Funk PROF 14(COMP METB)on 023 Albumin [Mass/Vol] 2.8 g/dL Critically low 3.4-5.0 Th e [facility] Comment on above: Performed By: #### C VDTBH #### [facility] [address] [place] [address] Dr. Ekta Funk Albumin/Globulin [Mass ratio] 0.7 {ratio} Normal [facility] Comment on above: Performed By: #### C VDTBH #### [facility] [address] [place] [address] Dr. Ekta Funk ALP [Catalytic activity/Vol] 90 U/L Normal 46-116 [facility] Comment on above: Performed By: #### C VDTBH #### [facility] [address] [place] [address] Dr. Ekta Funk ALT [Catalytic activity/Vol] 26 U/L Normal 14-59 [facility] Comment on above: Performed By: #### C VDTBH #### [facility] [address] [place] [address] Dr. Ekta Funk Anion gap [Moles/Vol] 14.5 mmol/L Normal [facility] Comment on above: Performed By: #### C VDTBH #### [facility] [address] [place] [address] Dr. Ekta Funk AST [Catalytic activity/Vol] 14 U/L Critically low 15-37 [facility] Comment on above: Performed By: #### C VDTBH #### [facility] [address] [place] [address] Dr. Ekta Funk Bilirubin [Mass/Vol] 0.4 mg/dL Normal 0.2-1.0 [facility] Comment on above: Performed By: #### C VDTBH #### [facility] [address] [place] [address] Dr. Ekta Funk Calcium [Mass/Vol] 8.9 mg/dL Normal 8.5-10.1 [facility] Comment on above: Performed By: #### C VDTBH #### [facility] [address] [place] [address] Dr. Ekta Funk Chloride [Moles/Vol] 106 mmol/L Normal 98-107 [facility] Comment on above: Performed By: #### C VDTBH #### [facility] [address] [place] [address] Dr. Ekta Funk CO2 [Moles/Vol] 23.5 mmol/L Normal 21.0-32.0 [facility] Comment on above: Performed By: #### C VDTBH #### [facility] [address] [place] [address] Dr. Ekta Funk Creatinine [Mass/Vol] 1.70 mg/dL Critically high 0.55-1.02 [facility] Comment on above: Performed By: #### C VDTBH #### [facility] [address] [address] [address] Ekta Funk EGFR-AF BERMUDIAN 36 mL/min/1.73m2 Critically low >=60 [facility] Comment on above: Performed By: #### C VDTBH #### [facility] [address] [address] [address] Ekta Funk EGFR-NON AF BERMUDIAN 29 mL/min/1.73m2 Critically low >=60 [facility] Comment on above: Performed By: #### C VDTBH #### [facility] [address] [place] [address] Dr. Ekta Funk Globulin (S) [Mass/Vol] 4.0 g/dL Normal [facility] Comment on above: Performed By: #### C VDTBH #### [facility] [address] [place] [address] Dr. Ekta Funk Glucose [Mass/Vol] 99 mg/dL Normal 74-106 [facility] Comment on above: Performed By: #### C VDTBH #### [facility] [address] [place] [address] Dr. Ekta Funk Potassium [Moles/Vol] 5.0 mmol/L Normal 3.5-5.1 [facility] Comment on above: Performed By: #### C VDTBH #### [facility] [address] [place] [address] Dr. Ekta Funk Protein [Mass/Vol] 6.8 g/dL Normal 6.4-8.2 [facility] Comment on above: Performed By: #### C VDTBH #### [facility] [address] [place] [address] Dr. Ekta Funk Sodium [Moles/Vol] 139 mmol/L Normal 136-145 [facility] Comment on above: Performed By: #### C VDTBH #### [facility] [address] [place] [address] Dr. Ekta Funk Urea nitrogen [Mass/Vol] 36.0 mg/dL Critically high 7.0-18.0 [facility] Comment on above: Performed By: #### C VDTB #### [facility] [address] [place] [address] Dr. Ekta Funk Urea nitrogen/Creatinine [Mass ratio] 21.2 mg/mg Normal [facility] Comment on above: Performed By: #### C VDTBH #### [facility] [address] [address] [address] Ekta Funk TSHon 10-18-2022 TSH 0.910 uIU/mL Normal 0.358-3.740 [facility] Comment on above: Performed By: #### C VDTB #### [facility] [address] [place] [address] Dr. Ekta Funk Covid-19 PCR ([facility])on 09-10 SARS-CoV-2 (COVID-19) RNA GANESH+probe Ql (Unsp spec) Detected Abnormal NOT DETECTED [facility] Comment on above: Result Comment: This test is not yet approved or cleared by the [place] FDA. When there are no FDA-approved or cleared tests available, and other criteria are met, FDA can make tests available under an emergency access mechanism called an Emergency Use Authorization (EUA). The EUA for this test is supported by the Aircraft Painter Apprentice of Health and Human Service's declaration that [...] longer be used). Performed By: #### C #### [facility] [address] [place] [address] Dr. Ekta Funk INFLUENZA A AND B AGon 09-25 INFLUANEGH SEE BELOW Normal [facility] Comment on above: Result Comment: Nega tive for Flu A protein angiten. Infection due to Flu A cannot be ruled out. Flu A angiten in the sample may be below the detection limit of the test. Performed By: #### B 12FOL, VITAD, IRON #### [facility] [address] [address] [address] Ekta Funk [facility] SEE BELOW Normal [facility] Comment on above: Result Comment: Nega tive for Flu B protein antigen. Infection due to Flu B cannot be ruled out. Flu B antigen in the sample may be below the detection limit of the test. Performed By: #### B 12FOL, VITAD, IRON #### [facility] [address] [address] [address] Ekta Funk INFLUENZA A AG Negative Normal NEGATIVE SEE COMMENT [facility] Comment on above: Performed By: #### B 12FOL, VITAD, IRON #### [facility] [address] [place] [address] Dr. Ekta Funk INFLUENZA B AG Negative Normal NEGATIVE SEE COMMENT [facility] Comment on above: Performed By: #### B 12FOL, VITAD, IRON #### [facility] [address] [place] [address] Dr. Ekta Funk US CAROTID ART BILon [...] by: GODWIN BECK Date: 2022-05-26 16:06 Normal [facility] MRI BRAIN WO CONon 2 MRI [...] by: VISHNU MARIE Date: 2022-05-25 10:45 Normal [facility] ECHOCARDIO M/2D COMPLETEon 0 05-24-2022 ECHOCARDIO M/2D COMPLETE Patient: SHEILA MAC Exam Date: 05/24/2022 : 1950 Gender:F Ordering : DR KRZYSZTOF HARP . Admission #: [id number] Family : Order #: [id number] CLICK HERE TO VIEW EXAM ECHOCARDIOGRAM REPORT [...] Mckay M.D. on 05/24/2022 at 14:45 Normal [facility] BASIC METABOLIC PANELon 03- Calcium mass conc 9.4 mg/dL Normal 8.6-10.3 The [facility] Comment on above: Order Comment: No: D o not add to previous draw Performed By: #### 0 0071 #### [facility] [address] [place] [address], [place] Chloride molar conc 108 mmol/L High 98-107 The [facility] Comment on above: Order Comment: No: D o not add to previous draw Performed By: #### 0 0071 #### [facility] [address] [place] [address], [place] CO2 molar conc 22 mmol/L Normal 21-31 The [facility] Comment on above: Order Comment: No: D o not add to previous draw Performed By: #### 0 0071 #### [facility] [address] [place] [address], [place] Creatinine mass conc 1.18 mg/dL Normal 0.60-1.20 [facility] Comment on above: Order Comment: No: D o not add to previous draw Performed By: #### 0 0071 #### [facility] [address] [place] [address], [place] GFR/1.73 sq M predicted among blacks MDRD vol rate/area (S/P/Bld) 55 ml/min/1.73sq m Abnormal >60 [facility] Comment on above: Order Comment: No: D o not add to previous draw Performed By: #### 0 0071 #### [facility] [address] [place] [address], [place] GFR/1.73 sq M predicted among non-blacks MDRD vol rate/area (S/P/Bld) 45 ml/min/1.73sq m Abnormal >60 [facility] Comment on above: Order Comment: No: D o not add to previous draw Performed By: #### 0 0071 #### [facility] [address] [place] [address], [facility] Glucose mass conc 166 mg/dL High 70-100 [facility] Comment on above: Order Comment: No: D o not add to previous draw Performed By: #### 0 0071 #### [facility] [address] [place] [address], [facility] Potassium molar conc 4.1 mmol/L Normal 3.5-5.1 [facility] Comment on above: Order Comment: No: D o not add to previous draw Performed By: #### 0 0071 #### [facility] [address] [place] [address], [facility] Sodium molar conc 140 mmol/L Normal 136-145 [facility] Comment on above: Order Comment: No: D o not add to previous draw Performed By: #### 0 0071 #### [facility] [address] [place] [address], [facility] Urea nitrogen mass conc 21 mg/dL Normal 7-25 [facility] Comment on above: Order Comment: No: D o not add to previous draw Performed By: #### 0 0071 #### [facility] [address] [place] [address], [facility] CBC COMPLETE BLOOD COUNTon 0 - Erythrocyte distribution width Ratio (RBC) 12.9 % Normal 11.5-15.0 [facility] Comment on above: Order Comment: No: D o not add to previous draw Performed By: #### 5 [id number] #### [facility] [address] [place] [address], [facility] Hematocrit Volume Fraction (Bld) 36.7 % Normal 36.0-45.0 [facility] Comment on above: Order Comment: No: D o not add to previous draw Performed By: #### 5 [id number] #### [facility] [address] [place] [address], [facility] Hemoglobin mass conc (Bld) 12.4 g/dL Normal 12.0-15.0 [facility] Comment on above: Order Comment: No: D o not add to previous draw Performed By: #### 5 [id number] #### [facility] [address] [facility]. [address] MCH Entitic mass (RBC) 31.2 pg Normal 27.0-33.0 [facility] Comment on above: Order Comment: No: D o not add to previous draw Performed By: #### 5 [id number] #### [facility] [address] [facility] [address] MCHC mass conc (RBC) 33.8 g/dL Normal 32.0-35.0 [facility] Comment on above: Order Comment: No: D o not add to previous draw Performed By: #### 5 [id number] #### [facility] [address] [facility]. [address] MCV Entitic volume (RBC) 92.4 fL Normal 82.0-98.0 [facility] Comment on above: Order Comment: No: D o not add to previous draw Performed By: #### 5 [id number] #### [facility] [address] Nucleated RBC/100 WBC Ratio (Bld) 0 % Normal 0-0 [facility] Comment on above: Order Comment: No: D o not add to previous draw Performed By: #### 5 [id number] #### [facility] [address] [place] [address], [facility] PLAT CNT 227 10*3/uL Normal 150-400 [facility] Comment on above: Order Comment: No: D o not add to previous draw Performed By: #### 5 0608 #### [facility] [address] RBC #/vol (Bld) 3.97 10*6/uL Normal 3.80-5.00 [facility] Comment on above: Order Comment: No: D o not add to previous draw Performed By: #### 5 [id number] #### [facility] [address] [place] [address], [facility] WBC #/vol (Bld) 5.55 10*3/uL Normal 4.00-10.60 [facility] Comment on above: Order Comment: No: D o not add to previous draw Performed By: #### 5 [id number] #### [facility] [address] Cardiovascular Lab Reporton 11-20-2018 Cardiovascular Lab Report [facility] Patient Name: Bubba [facility] Rahel Sosa MR #: [id number] Department of Physician: Bong Gaspar M.D. Division of Service Date: 11/20/2018 Cardiology Birthdate: 1950 Adult Cardiovascular Room #: 3AB [id number] [id number] Cardiovascular Laboratory Report INDICATION: The patient is a 68-year-old woman who was evaluated in Cardiology Clinic because of new onset symptoms of shortness of breath on mild exertion. Her stress test showed evidence of [id number] area of inferoapical ischemia; because of that, she was referred for cardiac catheterization. PROCEDURES: 1. Right heart catheterization. 2. Bilateral selective coronary angiography. 3. Limited right femoral angiography. METHOD: Procedure was explained patient with risks and benefits. She signed informed consent. She was brought to laborer beam house in a fasting state. The right groin area was prepped and draped in usual fashion. Using micropuncture technique, the right common femoral artery was accessed. The inner cannula was advanced. Limited femoral angiography was performed followed by upsizing to a 6-Greenlandic x 11 cm sheath. Access was also obtained using the same technique in the right common femoral vein and a 6-Greenlandic x 11 cm sheath was placed. A 6-Greenlandic Michel catheter was used for right heart catheterization with measurement of pressures and calculation of cardiac output using the estimated Ivory method. Michel catheter was removed. Bilateral selective coronary angiography was then performed using 6-Greenlandic JL4 and JR4 diagnostic catheters. Catheters were [...] A/Bong Gaspar M.D. Date Trans: 11/20/2018 09:31 Cyndy/alvina [id number] cc: Krzysztof Harp M.D. [address] [facility] [id number] Normal The [facility] BASIC METABOLIC PANELon 11-08 Calcium mass conc 9.5 mg/dL Normal 8.6-10.3 The [facility] Comment on above: Order Comment: No: D o not add to previous draw Performed By: #### 0 0071 #### [facility] [address] [place] [address], [place] Chloride molar conc 105 mmol/L Normal 98-107 The [facility] Comment on above: Order Comment: No: D o not add to previous draw Performed By: #### 0 0071 #### [facility] [address] [place] [address], [place] CO2 molar conc 24 mmol/L Normal 21-31 The [facility] Comment on above: Order Comment: No: D o not add to previous draw Performed By: #### 0 0071 #### [facility] [address] [place] [address], [place] Creatinine mass conc 1.42 mg/dL High 0.60-1.20 [facility] Comment on above: Order Comment: No: D o not add to previous draw Performed By: #### 0 0071 #### [facility] [address] [place] [address], [place] GFR/1.73 sq M predicted among blacks MDRD vol rate/area (S/P/Bld) 45 ml/min/1.73sq m Abnormal >60 [facility] Comment on above: Order Comment: No: D o not add to previous draw Performed By: #### 0 0071 #### [facility] [address] [place] [address], [place] GFR/1.73 sq M predicted among non-blacks MDRD vol rate/area (S/P/Bld) 36 ml/min/1.73sq m Abnormal >60 [facility] Comment on above: Order Comment: No: D o not add to previous draw Performed By: #### 0 0071 #### [facility] [address] [place] [address], [place] Glucose mass conc 86 mg/dL Normal 70-100 The [facility] Comment on above: Order Comment: No: D o not add to previous draw Performed By: #### 0 0071 #### [facility] [address] [place] [address], [facility] Potassium molar conc 4.2 mmol/L Normal 3.5-5.1 [facility] Comment on above: Order Comment: No: D o not add to previous draw Performed By: #### 0 0071 #### [facility] [address] [place] [address], [facility] Sodium molar conc 138 mmol/L Normal 136-145 The [facility] Comment on above: Order Comment: No: D o not add to previous draw Performed By: #### 0 0071 #### [facility] [address] [place] [address], [facility] Urea nitrogen mass conc 19 mg/dL Normal 7-25 [facility] Comment on above: Order Comment: No: D o not add to previous draw Performed By: #### 0 0071 #### [facility] [address] [place] [address], [facility] CBC COMPLETE BLOOD COUNTon 0 - Erythrocyte distribution width Ratio (RBC) 13.0 % Normal 11.5-15.0 [facility] Comment on above: Order Comment: No: D o not add to previous draw Performed By: #### 5 [id number] #### [facility] [address] [place] [address], [facility] Hematocrit Volume Fraction (Bld) 38.3 % Normal 36.0-45.0 [facility] Comment on above: Order Comment: No: D o not add to previous draw Performed By: #### 5 0608 #### [facility] [address] [place] [address], [facility] Hemoglobin mass conc (Bld) 12.6 g/dL Normal 12.0-15.0 [facility] Comment on above: Order Comment: No: D o not add to previous draw Performed By: #### 5 0608 #### [facility] [address] [place] [address], [facility] MCH Entitic mass (RBC) 31.1 pg Normal 27.0-33.0 [facility] Comment on above: Order Comment: No: D o not add to previous draw Performed By: #### 5 [id number] #### [facility] [address] [place] [address], [facility] MCHC mass conc (RBC) 32.9 g/dL Normal 32.0-35.0 [facility] Comment on above: Order Comment: No: D o not add to previous draw Performed By: #### 5 [id number] #### [facility] [address] MCV Entitic volume (RBC) 94.6 fL Normal 82.0-98.0 [facility] Comment on above: Order Comment: No: D o not add to previous draw Performed By: #### 5 [id number] #### [facility] [address] Nucleated RBC/100 WBC Ratio (Bld) 0 % Normal 0-0 [facility] Comment on above: Order Comment: No: D o not add to previous draw Performed By: #### 5 [id number] #### [facility] [address] [place] [address], [facility] PLAT CNT 266 10*3/uL Normal 150-400 [facility] Comment on above: Order Comment: No: D o not add to previous draw Performed By: #### 5 [id number] #### [facility] [address] [place] [address], [facility] RBC #/vol (Bld) 4.05 10*6/uL Normal 3.80-5.00 [facility] Comment on above: Order Comment: No: D o not add to previous draw Performed By: #### 5 [id number] #### [facility] [address] [facility]. [address] WBC #/vol (Bld) 9.01 10*3/uL Normal 4.00-10.60 [facility] Comment on above: Order Comment: No: D o not add to previous draw Performed By: #### 5 [id number] #### [facility] [address] PROTHROMBIN TIMEon 9 INR Coag RelTime (PPP) 1.07 {INR} Normal 0.91-1.16 [facility] Comment on above: Order Comment: No: D [...] 1995;[id number]. Performed By: #### 5 6101 #### [facility] [address] Prothrombin time (PT) Coag time (PPP) 13.9 s Normal 12.3-14.8 [facility] Comment on above: Order Comment: No: D o not add to previous draw Result Comment: ALL RESULTS MUST BE INTERPRETED WITH RESPECT TO BLOOD DRAWING ARTIFACT OR DILUTION ERROR OF ANTICOAGULANT AT THE TIME OF SAMPLING. Performed By: #### 5 [id number] #### [facility] [address] Vital Signs Date Time Vital Sign Value Performing Clinician Joel mcclellan 02-19-2024 09:07-0400 Body height 157.48 cm MD Krzysztof Harp Work Phone: [facility] 02-19-2024 09:07-0400 Body mass index (BMI) [Ratio] 24.7 kg/m2 MD Krzysztof Harp Work Phone: [facility] 02-19-2024 [id number] Body weight 61.23 kg MD Krzysztof Harp Work Phone: [facility] 02-19-2024 09:07-0400 Diastolic blood pressure 105 mm[Hg] MD Krzysztof Harp Work Phone: [facility] 02-19-2024 09:07-0400 Heart rate 60 /min MD Krzysztof Harp Work Phone: [facility] 02-19-2024 09:07-0400 Systolic blood pressure 146 mm[Hg] MD Krzysztof Harp Work Phone: [facility] 02-05-2024 13:37-0400 Diastolic blood pressure 47 mm[Hg] MD Krzysztof Harp Work Phone: [facility] 02-05-2024 13:37-0400 Heart rate 78 /min MD Krzysztof Harp Work Phone: [facility] 02-05-2024 13:37-0400 Respiratory rate 16 /min MD Krzysztof Harp Work Phone: [facility] 02-05-2024 13:37-0400 SaO2% (BldA) [Mass fraction] 97 % MD Krzysztof Harp Work Phone: [facility] 02-05-2024 13:37-0400 Systolic blood pressure 122 mm[Hg] MD Krzysztof Harp Work Phone: [facility] 02-05-2024 11:35-0400 Body height 157.48 cm MD Krzysztof Harp Work Phone: [facility] 02-05-2024 11:35-0400 Body temperature 99.1 [degF] MD Krzysztof Harp Work Phone: [facility] 02-05-2024 11:35-0400 Body weight 62.14 kg MD Krzysztof Harp Work Phone: [facility] Encounters Encounter Date Encounter Type Care Provider Facility Start: 02-19-2024 End: 02-19-2024 ambulatory MD Krzysztof Harp Work Phone: [facility] Work Phone: Start: 02-19-2024 End: 02-19-2024 Patient encounter procedure MD Krzysztof Harp Work Phone: [facility] Work Phone: Start: 02-05-2024 Non-patient / Non-visit MD Krzysztof Harp Work Phone: [facility] Work Phone: Start: 02-05-2024 End: 02-05-2024 Admission to same day surgery center MD Krzysztof Harp Work Phone: [facility] Work Phone: Start: 02-05-2024 End: 02-05-2024 ambulatory MD Krzysztof Harp Work Phone: [facility] Work Phone: Start: 01-16-2024 Non-patient / Non-visit MD Krzysztof Harp Work Phone: [facility] Work Phone: Start: 01-09-2024 End: 01-09-2024 ambulatory DARSHAN HERNANDEZ Not Available Start: 01-07-2024 ambulatory KRZYSZTOFVANI HARP [facility] Start: 01-16-2023 ambulatory JN GARCIA . Facility : Start: 01-15-2023 End: 01-15-2023 ambulatory APRIL CASTANEDA . Facility:[facility] Start: 01-10-2023 End: 01-11-[address] KRZYSZTOF HARP . Facility:[facility] Start: 12-15-2022 End: 12-15-2022 ambulatory APRIL CASTANEDA . Facility:[facility] Start: 12-15-2022 ambulatory RODRIGUEZ RIVERA [facility] Start: 12-05-2022 End: 12-06-[address] [...] End: 11-20-2018 Patient encounter procedure PROVIDER UNKNOWN Facility:[facility] Start: 11-13-2018 End: 11-14-2018 Patient encounter procedure DEFAULT PHYSICIAN Facility:[facility] Start: 10-31-2018 End: 11-01-2018 Patient encounter procedure DEFAULT PHYSICIAN Facility:[facility] Start: 09-23-2018 End: 09-24-2018 Patient encounter procedure DEFAULT PHYSICIAN Facility:[facility] Start: 09-05-2018 End: 09-06-2018 Patient encounter procedure DEFAULT PHYSICIAN Facility:[facility] Procedures Date Procedure Procedure Detail Performing Clinician Start: 02-05-2024 Esophagogastroduodenoscopy MD Krzysztof Harp Work Phone: Plan of Treatment Date Care Activity Detail Author Start: 02-05-2024 [facility] Patient Education Hiatal Hernia (DC) Know your Meds [facility] Work Phone: Payers Date Payer Category Payer Self-pay 2015 Medicare [id number] 1959 Unknown [id number] 1950 Unknown [id number] 2.16.8 40.1.145818.3.579.2.647 1948 Unknown [id number] 2.16.8 40.1.041269.3.579.2.647 1948 Unknown [id number] 2.16.8 40.1.127865.3.579.2.647 1948 Unknown [id number] 2.16.8 40.1.213885.3.579.2.647 1948 Unknown [id number] 2.16.8 40.1.244848.3.579.2.647 1948 Unknown [id number] 2.16.84 0.1.046947.3.579.2.593 1948 Unknown [id number] 2.16.84 0.1.869473.3.579.2.593 1948 Unknown [id number] 2.16.84 0.1.111142.3.579.2.593 1948 Unknown [id number] 2.16.84 0.1.511248.3.579.2.593 1948 Unknown [id number] 2.16.84 0.1.215310.3.579.2.593 1948 Unknown [id number] 2.16.84 0.1.103056.3.579.2.593 1948 Unknown [id number] 2.16.84 0.1.957445.3.579.2.593 1948 Unknown [id number] 2.16.84 0.1.375292.3.579.2.593 1948 Unknown [id number] 2.16.84 0.1.497574.3.579.2.593 1948 Unknown [id number] 2.16.84 0.1.853251.3.579.2.593 1948 Unknown [id number] 2.16.84 0.1.959992.3.579.2.593 1948 Unknown [id number] 2.16.84 0.1.878961.3.579.2.593 1948 Unknown [id number] 2.16.84 0.1.776342.3.579.2.593 1948 Unknown [id number] 2.16.84 0.1.902829.3.579.2.593 1948 Unknown [id number] 2.16.84 0.1.298626.3.579.2.593 1948 Unknown [id number] 2.16.84 0.1.000367.3.579.2.593 1948 Unknown [id number] 2.16.84 0.1.975113.3.579.2.593 1948 Unknown [id number] 2.16.84 0.1.681735.3.579.2.593 1948 Unknown [id number] 2.16.84 0.1.118956.3.579.2.593 1948 Unknown [id number] 2.16.8 40.1.218580.3.579.2.1286 1948 Unknown [id number] 2.16.8 40.1.102553.3.579.2.1286 1948 Unknown [id number] 2.16.8 40.1.024108.3.579.2.1286 1948 Unknown [id number] 2.16.84 0.1.814362.3.579.2.1259 Medicare [id number] Unknown Unknown [id number] 2.16.8 40.1.471199.3.579.2.531 Social History Date Type Detail Facility Start: [facility]05-[facility]24 [facility] Start: 1950 Sex Assigned At Female F [facility] Goals Date Patient Goal Desired Activity /State Procedure note 02-05-2024 Note Date & Type Note Facility 02-05-2024 Procedure note [facility] Progress note 12-15-2022 Note Date [...] She will be (more content not included)... [facility] Progress note 12-15-2022 Note Date & Type Note Facility 12-15-2022 Note Review of Systems Cardiovascular: Positive for leg swelling. Respiratory: Positive for shortness of breath. Skin: Positive for color change. Neurological: Positive for headaches. All other systems reviewed and are negative. [facility] Clinical Note 07-25-2022 Note Date & Type [...] by: VISHNU MARIE Date: 2022-07-25 13:25 [facility] Clinical Note 05-11-2022 Note Date & Type [...] by: VISHNU MARIE Date: 2022-05-11 12:51 [facility] Clinical Note 02-14-2022 Note Date & Type Note Facility 02-14-2022 Note PROCEDURE: XR KNEE L T 4V or > COMPARISON: None. HISTORY: Osteoarthritis FINDINGS: BONES:No fracture, acute abnormality, or significant arthropathy. SOFT TISSUES:Negative. No visible soft tissue swelling. EFFUSION:Moderate suprapatellar joint effusion OTHER: Negative. IMPRESSION: Moderate joint effusion Electronically authenticated by: GODWIN BECK Date: 2022-02-14 17:30 [facility] Evaluation note Note Date & Type Note Facility Evaluation note No assessment information availa [facility] Work Phone: Evaluation note Note Date & Type Note Facility Evaluation note Diagnosis Onset Date Duodenal diverticulum acute Hiatal hernia acute IBS (irritable bowel syndrome) acute Screening for colon cancer [facility] Work Phone: History and physical note Note Date & Type Note Facility History and physical note Note Date/Time February 05, 2024 1:08p [facility] ENTER [address] [place] [address] Gastroenterology H&P Signed Patient: Sheila Mac MR#: [id number] : 1950 Acct:[id number] Age/Sex: 73 / F Adm Date: 4 Loc: Room: Type: [facility] Attending Dr: Ben Sanchez MD Copies to: [...] <Electronically signed by Ben Sanchez MD> 02/05/24 1307 [facility] Work Phone: Summary Purpose Family History Relationship [...] CREATED AUTHOR 11/24/[address] [facility] DATE CREATED AUTHOR AUTHOR'S ORGANIZ ATION 12/19/2022 [facility] DATE CREATED AUTHOR AUTHOR'S ORGANIZ ATION 01/18/2023 [facility] DATE CREATED AUTHOR AUTHOR'S ORGANIZ ATION 01/10/2024 [facility] DATE CREATED AUTHOR AUTHOR'S ORGANIZ ATION 01/10/2024 [facility] DATE CREATED AUTHOR AUTHOR'S ORGANIZ ATION 02/16/2024 [facility] Care Teams (unrecognized sec tion and content) Team Status: Active Member Role Status Dates Krzysztof Harp MD Primary Care Provider Active Team Status: Active Member Role Status Dates Ben Sanchez MD Attending Provider Active S tart: January 16, 2024 Team Status: Inactive Member Role Status Dates Ben Sanchze MD Attending Provider Active S tart: February [...] BE BASED ON THE PRIMARY CLINICAL RECORDS. [facility] [employer] [facility]. provides no warranty or guarantee of the accuracy or completeness of information in this document.
== END 2024-03-27 16:28 | disposition home or self-care (01) ==
LOC: US 16:28
PROVIDERS: PCP Family Medicine; Visit Provider Family Medicine
DX: G56.42 Causalgia of left upper limb (principal); R60.0 Localized edema
CPT/HCPCS: 93931; 93971

== ENCOUNTER 2024-04-22 08:56 | Day surgery (SDC) | payer MEDICARE, SELFPAY ==
--- NOTE | 2024-04-22 09:05 | FL_ITS ---
The [address] [address] Patient Name: EDIN SAMANIEGO MRN: [id number] date: 1950 Sex: F Assigned Patient Location: [place] Current Patient Location: [place] Accession/Order Number: [id number] Exam Date: 04/22/2024 09:14 Report Date: 04/22/2024 10:57 At the request of: KRZYSZTOF THOMPSON Procedure: FL guided needle placement EXAMINATION: FL hip inj RT, FL guided needle placement HISTORY: Right Hip Pain COMPARISON: No relevant comparison available. FLUORO DOSE: Unknown TECHNIQUE: A joint injection was performed in the usual sterile manner after obtaining informed consent. Standard level fluoroscopic mode of operation utilized. FINDINGS: JOINT: Right hip. NEEDLE: 22 gauge, 3.5 spinal needle. MEDICATION: 2cc buffered 1% lidocaine for subcutaneous anesthesia 2cc Omnipaque-300 iodinated contrast to visualize the joint space Mixture of Kenalog 40 mg, 0.5% Bupivacaine 2 mL and Omnipaque 300 10mL was injected into the joint space. TECHNIQUE: Anterior approach with prior localization of the femoral artery. A single stick was successful in gaining access to the joint space. CLINICAL: 6/10 before injection, 5/10 after injection. COMPLICATIONS: None. OTHER: Negative. FL/FL guided needle placement IMPRESSION: Technically successful arthrogram right hip Electronically authenticated by: GODWIN BECK Date: 04/22/2024 10:57
--- OUTSIDE RECORDS SUMMARY | 2024-04-22 09:07 | XMS_ITS | CCD ---
Author Organization [facility] Care Team Providers Care Hydraulics Engineer Name Role Phone PHYSICIAN, DEFAULT Admitting Unavailable [...] Unavailable HOY ., DR BLANKENSHIP Admmilton Unavailable CATAWBA, DR GODWIN Cardona Consulting Unavailable HOY ., [...] Unavailable HAY ., DR STRATTON Consulting Unavailable GONZALEZ PATEL [...] DONNA ., DR BLANKENSHIP Primary Care Unavailable KRZYSZTOF HARP Referring Unavailable KRZYSZTOF HARP Primary Care Unavailable KRZYSZTOF HARP Referring Unavailable KRZYSZTOF HARP M Primary Care Unavailable MD Ben Sanchez Attending Provider [phone] MD Krzysztof Harp Primary Care Provider [phone] Ben Sanchez Admitting Unavailable Ben Sanchez Attending Unavailable Krzysztof Harp Primary Care Unavailable Ben Sanchez Admitting Unavailable Ben Sanchez Attending Unavailable Krzysztof Harp Primary Care Unavailable DARSHAN HERNANDEZ Attending Unavailable CLEVE NOEL Attending Unavailable CLEVE NOEL Attending Unavailable Allergies Allergy Classification Reported Allergen(s) Allergy Type Date of Onset Reaction(s) Facility (6 sources) Morphine; 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: [MORPHINE] Drug Allergy 7 Vomiting [facility] Repository (3 sources) NSAIDs; 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: [NSAIDS (NON-STEROIDAL ANTI-INFLAMMATOR Y DRUG)] Drug allergy (disorder) 9 [facility] Repository (1 source) Penicillin Drug Allergy 9 [facility] Repository (1 source) predniSONE Drug Allergy 9 [facility] Repository (2 sources) Iodinated Contrast- Oral and IV Dye Drug allergy (disorder) 5 [facility] Repository (7 sources) Penicillins; 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: [PENICILLINS] Propensity to adverse reactions to drug (disorder) 5 Rash [facility] Repository (5 sources) IODINATED CONTRAST MEDIA; 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: [IODINATED CONTRAST MEDIA] Propensity to adverse reactions to drug (disorder) 3 Anaphylaxis [facility] Repository (1 source) levoFLOXacin Drug Allergy 3 [facility] Repository (1 source) meloxicam Drug Allergy 3 [facility] Repository (1 source) Contrast media; 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: [DYE] Propensity to adverse reactions to drug (disorder) 7 [facility] Repository (1 source) MORPHOLINE ANALOGUES; 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: [MORPHOLINE ANALOGUES] Propensity to adverse reactions to drug (disorder) 7 [facility] Repository (4 sources) NSAIDS (Non-Steroidal Anti-Inflamma; 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: [NSAIDS (Non-Steroidal Anti-Inflamma] Propensity to adverse reactions 4 Stomach Ulcer [facility] (1 source) Morphine Drug Allergy 4 [facility] Repository Medications Current Medications Medication Drug Class(es) Dates Sig (Normalized) Sig (Original) aspirin 81 mg delayed release oral tablet (2 sources) Platelet Aggregation Inhibitor, Nonsteroidal Anti-inflammatory Drug Start: 02-19-2024 take 81 mg by mouth once daily Aspirin Active 81 MG PO Daily February 19, 2024 12:00am atorvastatin 20 mg oral tablet (3 sources) HMG-CoA Reductase Inhibitor Start: 01-28-2024 take 20 mg by mouth once daily at bedtime Atorvastatin Active 20 MG PO Daily at bedtime January 28, 2024 12:00am clopidogrel 75 mg oral tablet (3 sources) P2Y12 Platelet Inhibitor Start: 01-28-2024 take 75 mg by mouth once daily in the morning Clopidogrel Active 75 MG PO Every morning January 28, 2024 12:00am lactulose 667 mg/ml oral solution (7 sources) Osmotic Laxative Start: 02-19-2024 End: 02-19-2024 take 1 mL by mouth twice daily Lactulose Active 30 ML PO Twice daily 1800 February 19, 2024 9:26am Start: 01-28-2024 End: 02-19-2024 take 1 mL by mouth once daily in the morning Lactulose Discontinued 15 ML PO Every morning January 28, 2024 12:00am February 19, 2024 9:15am pantoprazole 40 mg delayed release oral tablet (5 sources) Proton Pump Inhibitor Start: 01-28-2024 End: 02-19-2024 Pantoprazole Active 40 MG PO Daily 30 February 19, 2024 9:26am Take 1 tablet orally 30 minutes before morning meal. Sod Picosulf-Mag Ox-Citric Ac (2 sources) Start: 02-19-2024 take 1 dose by mouth once daily in the evening Sod Picosulf-Mag Ox-Citric Ac (Clenpiq) 10 mg-3.5 gram- 12 gram/175 mL solution Active 175 ML PO Daily 175 1 February 19, 2024 12:00am take first dose at 3:00 pm the day before colonoscopy, take second dose at 9:00 pm the day before colonoscopy. sucralfate 1000 mg oral tablet (5 sources) Aluminum Complex Start: 02-19-2024 take 1 [...] (Original) cetirizine hydrochloride 10 mg oral tablet (3 sources) Histamine-1 Receptor Antagonist Start: 01-28-2024 End: 02-19-2024 take 10 mg by mouth once daily in the morning Cetirizine Discontinued 10 MG PO Every morning January 28, 2024 12:00am February 19, 2024 9:13am Problems Active Problems Problem Classification Problem Date Documented Da te Episodic/Chronic Abdominal hernia (5 sources) Diaphragmatic hernia without obstruction or gangrene; [...] unspecified] Onset: 11-14-2022 Chronic Diverticulosis and diverticulitis (4 sources) Diverticulum of duodenum; 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: [Diverticulosis of [...] Onset: 01-17-2023 Chronic Other aftercare (2 sources) manager terminal (current) use of aspirin; 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: [RESIDENTIAL (CURRENT) USE OF ASPIRIN] Onset: 11-19-2018 Episodic Other aftercare (1 source) 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; 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: [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 DRUG THERAPY] Onset: 01-17-2023 Episodic Other [...] [FIBROMYALGIA] Onset: 01-17-2023 Episodic Other gastrointestinal disorders (2 sources) Irritable bowel syndrome; 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: [Irritable bowel syndrome without diarrhea] 02-19-2024 Chronic Other gastrointestinal disorders (2 sources) Irritable bowel syndrome without diarrhea; 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: [Irritable [...] conditions (not mental disorders or infectious disease) (10 sources) Abnormal result of other cardiovascular function [...] Facility US AYESHA DOP LEG LTon 01-16-20 AYESHA DOP LEG LT EXAMINATION: US AYESHA [...] VISHNU MARIE Date: 2023-01-15 08:25 Normal [facility] XR ANKLE LT MIN 3 Von [...] GONZALEZ PATEL Date: 2023-01-15 07:28 Normal [facility] VITAMIN B1 (THIAMINE)on Vit. B1, Whole Blood 118.1 nmol/L Normal 66.5-200.0 [facility] Comment on above: Performed By: #### C BC #### [facility] [address] [place] [address] Dr. Ekta Funk BNPon 01-10-2023 Natriuretic peptide B (Bld) [Mass/Vol] 980.0 pg/mL Critically high <=900.0 [facility] Comment on above: Performed By: #### C VDTBH #### [facility] [address] [place] [address] Dr. Ekta Funk CBC AUTO DIFFon 01-10-2023 BASO # 0.1 103/ul Normal 0.0-0.1 [facility] Comment on above: Performed By: #### C MP #### [facility] [address] [place] [address] Dr. Ekta Funk Basophils/100 WBC (Bld) 1.0 % Normal 0.2-2.0 [facility] Comment on above: Performed By: #### C MP #### [facility] [address] [place] [address] Dr. Ekta Funk EO # 0.4 103/ul Normal 0.0-0.7 [facility] Comment on above: Performed By: #### C MP #### [facility] [address] [place] [address] Dr. Ekta Funk Eosinophils/100 WBC (Bld) 3.7 % Normal 0.9-7.0 [facility] Comment on above: Performed By: #### C MP #### [facility] [address] [place] [address] Dr. Ekta Funk Erythrocyte distribution width (RBC) [Ratio] 13.2 % Normal 11.0-15.0 [facility] Comment on above: Performed By: #### C MP #### [facility] [address] [place] [address] Dr. Ekta Funk Hematocrit (Bld) [Volume fraction] 35.1 % Critically low 36.0-48.0 [facility] Comment on above: Performed By: #### C MP #### [facility] [address] [place] [address] Dr. Ekta Funk Hemoglobin (Bld) [Mass/Vol] 11.3 g/dL Critically low 12.0-16.0 [facility] Comment on above: Performed By: #### C MP #### [facility] [address] [place] [address] Dr. Ekta Funk IG # 0.04 10e3/ul Critically high 0.00-0.03 [facility] Comment on above: Performed By: #### C MP #### [facility] [address] [place] [address] Dr. Ekta Funk IG % 0.4 % Normal 0.0-0.5 [facility] Comment on above: Performed By: #### C MP #### [facility] [address] [place] [address] Dr. Ekta Funk LYMPH # 2.0 103/ul Normal 1.2-3.8 [facility] Comment on above: Performed By: #### C MP #### [facility] [address] [place] [address] Dr. Ekta Funk Lymphocytes/100 WBC (Bld) 20.8 % Normal 20.5-60.0 [facility] Comment on above: Performed By: #### C MP #### [facility] [address] [place] [address] Dr. Ekta Funk MANUAL DIFF REQ NO Normal [facility] Comment on above: Performed By: #### C MP #### [facility] [address] [address] [address] Ekta Funk MCH (RBC) [Entitic mass] 32.3 pg Normal 26.7-34.0 [facility] Comment on above: Performed By: #### C MP #### [facility] [address] [address] [address] Ekta Funk MCHC (RBC) [Mass/Vol] 32.2 g/dL Normal 29.9-35.2 [facility] Comment on above: Performed By: #### C MP #### [facility] [address] [place] [address] Dr. Ekta Funk MCV (RBC) [Entitic vol] 100.3 fL Critically high 81.0-99.0 [facility] Comment on above: Performed By: #### C MP #### [facility] [address] [place] [address] Dr. Ekta Funk MONO # 0.8 103/ul Normal 0.3-0.8 [facility] Comment on above: Performed By: #### C MP #### [facility] [address] [place] [address] Dr. Ekta Funk Monocytes/100 WBC (Bld) 7.9 % Normal 1.7-12.0 [facility] Comment on above: Performed By: #### C MP #### [facility] [address] [place] [address] Dr. Ekta Funk NEUT # 6.4 103/ul Normal 1.4-6.5 [facility] Comment on above: Performed By: #### C MP #### [facility] [address] [place] [address] Dr. Ekta Funk Neutrophils/100 WBC (Bld) 66.2 % Normal 43.0-75.0 [facility] Comment on above: Performed By: #### C MP #### [facility] [address] [place] [address] Dr. Ekta Funk Platelet mean volume (Bld) [Entitic vol] 9.6 fL Normal 9.5-13.5 [facility] Comment on above: Performed By: #### C MP #### [facility] [address] [address] [address] Ekta Funk PLT 255 103/ul Normal 150-450 [facility] Comment on above: Performed By: #### C MP #### [facility] [address] [address] [address] Ekta Funk RBC 3.50 106/ul Critically low 4.20-5.40 [facility] Comment on above: Performed By: #### C MP #### [facility] [address] [address] [address] Ekta Funk WBC 9.7 103/ul Normal 4.0-11.0 [facility] Comment on above: Performed By: #### C MP #### [facility] [address] [place] [address] Dr. Ekta Funk CRPon 01-10-2023 CRP [Mass/Vol] mg/L Normal <=1.0 [facility] Comment on above: Performed By: #### C BC #### [facility] [address] [place] [address] Dr. Ekta Funk FREE THYROXINE INDEX T7on FTI 2.62 Normal 1.30-4.50 [facility] Comment on above: Performed By: #### C BC #### [facility] [address] [address] [address] Ekta Funk T3U 32.0 % Normal 30.0-39.0 [facility] Comment on above: Performed By: #### C BC #### [facility] [address] [address] [address] Ekta Funk T4 [Mass/Vol] 8.20 ug/dL Normal 4.80-13.[address] [facility] Comment on above: Performed By: #### C BC #### [facility] [address] [address] [address] Ekta Funk IRONon 01-10-2023 Iron [Mass/Vol] 61.0 ug/dL Normal 50.0-170.0 [facility] Comment on above: Performed By: #### B 12FOL, VITAD, IRON #### [facility] [address] [place] [address] Dr. Ekta Funk PROF 14(COMP METB)on 023 Albumin [Mass/Vol] 2.9 g/dL Critically low 3.4-5.0 [facility] Comment on above: Performed By: #### C VDTBH #### [facility] [address] [place] [address] Dr. Ekta Funk Albumin/Globulin [Mass ratio] 0.6 {ratio} Normal [facility] Comment on above: Performed By: #### C VDTBH #### [facility] [address] [place] [address] Dr. Ekta Funk ALP [Catalytic activity/Vol] 101 U/L Normal 46-116 [facility] Comment on above: Performed By: #### C VDTBH #### [facility] [address] [place] [address] Dr. Ekta Funk ALT [Catalytic activity/Vol] 16 U/L Normal 14-59 [facility] Comment on above: Performed By: #### C VDTBH #### [facility] [address] [place] [address] Dr. Ekta Funk Anion gap [Moles/Vol] 14.6 mmol/L Normal [facility] Comment on above: Performed By: #### C VDTBH #### [facility] [address] [place] [address] Dr. Ekta Funk AST [Catalytic activity/Vol] 15 U/L Normal 15-37 [facility] Comment on above: Performed By: #### C VDTBH #### [facility] [address] [place] [address] Dr. Ekta Funk Bilirubin [Mass/Vol] 0.4 mg/dL Normal 0.2-1.0 [facility] Comment on above: Performed By: #### C VDTBH #### [facility] [address] [place] [address] Dr. Ekta Funk Calcium [Mass/Vol] 9.2 mg/dL Normal 8.5-10.1 [facility] Comment on above: Performed By: #### C VDTBH #### [facility] [address] [place] [address] Dr. Ekta Funk Chloride [Moles/Vol] 107 mmol/L Normal 98-107 [facility] Comment on above: Performed By: #### C VDTBH #### [facility] [address] [place] [address] Dr. Ekta Funk CO2 [Moles/Vol] 24.4 mmol/L Normal 21.0-32.0 [facility] Comment on above: Performed By: #### C VDTBH #### [facility] [address] [place] [address] Dr. Ekta Funk Creatinine [Mass/Vol] 2.02 mg/dL Critically high 0.55-1.02 [facility] Comment on above: Performed By: #### C VDTBH #### [facility] [address] [place] [address] Dr. Ekta Funk EGFR-AF [facility] LUCIAN 29 mL/min/1.73m2 Critically low >=60 [facility] Comment on above: Performed By: #### C VDTBH #### [facility] [address] [place] [address] Dr. Ekta Funk EGFR-NON AF [facility] LUCIAN 24 mL/min/1.73m2 Critically low >=60 [facility] Comment on above: Performed By: #### C VDTBH #### [facility] [address] [place] [address] Dr. Ekta Funk Globulin (S) [Mass/Vol] 4.5 g/dL Normal [facility] Comment on above: Performed By: #### C VDTBH #### [facility] [address] [place] [address] Dr. kEta Funk Glucose [Mass/Vol] 103 mg/dL Normal 74-106 [facility] Comment on above: Performed By: #### C VDTBH #### [facility] [address] [place] [address] Dr. Ekta Funk Potassium [Moles/Vol] 5.0 mmol/L Normal 3.5-5.1 [facility] Comment on above: Performed By: #### C VDTBH #### [facility] [address] [place] [address] Dr. Ekta Funk Protein [Mass/Vol] 7.4 g/dL Normal 6.4-8.2 [facility] Comment on above: Performed By: #### C VDTBH #### [facility] [address] [place] [address] Dr. Ekta Funk Sodium [Moles/Vol] 141 mmol/L Normal 136-145 [facility] Comment on above: Performed By: #### C VDTBH #### [facility] [address] [place] [address] Dr. Ekta Funk Urea nitrogen [Mass/Vol] 23.0 mg/dL Critically high 7.0-18.0 [facility] Comment on above: Performed By: #### C VDTBH #### [facility] [address] [place] [address] Dr. Ekta Funk Urea nitrogen/Creatinine [Mass ratio] 11.4 mg/mg Normal [facility] Comment on above: Performed By: #### C VDTBH #### [facility] [address] [place] [address] Dr. Ekta Funk TSHon 01-10-2023 TSH 1.793 uIU/mL Normal 0.358-3.[address] [facility] Comment on above: Performed By: #### C VDTBH #### [facility] [address] [place] [address] Dr. Ekta Funk VIT B12 AND FOLATEon 023 Cobalamin (Vitamin B12) [Mass/Vol] 175.0 pg/mL Critically low 193.0-986.0 [facility] Comment on above: Performed By: #### B 12FOL, VITAD, IRON #### [facility] [address] [place] [address] Dr. Ekta Funk FOLATE 10.30 ng/mL Normal 8.60-58.90 [facility] Comment on above: Performed By: #### B 12FOL, VITAD, IRON #### [facility] [address] [address] [address] Ekta Funk VITAMIN D 25 OHon 01-10-2023 VIT D 25-OH 24.0 ng/mL Normal [facility] Comment on above: Performed By: #### B 12FOL, VITAD, IRON #### [facility] [address] [address] [address] Ekta Funk VIT D RANGES SEE BELOW Normal [facility] Comment on above: Result Comment: <20 ng/mL Vit D deficient 20 - <30 ng/mL Vit D insufficient 30 - 100 ng/mL Vit D sufficient >100 ng/mL Potential Toxicity Performed By: #### B 12FOL, VITAD, IRON #### [facility] [address] [address] [address] Ekta Funk Office Visiton 12-15-2022 Follow-up visit [id number] Sheila Mac 1950 F Date Provider Department Center 12/15/2022 [id number] RIVERA [facility] No family history on file Level of Service:39024 MD OFFICE/OUTPATIENT ESTABLISHED MOD [facility] 30-39 MIN Reason for Visit and Comments: Follow-up [370522] - Is here f/u stress test pt states she had Bruises all over both legs symptoms stated a week ago also stated legs are swollen and burning Normal [facility] NM STRESS/REST MULTIon 12-05 NM STRESS/REST MULTI Patient: SHEILA MAC Exam Date: 12/05/2022 : 1950 Gender:F Ordering : DR KRZYSZTOF HARP . Admission #: [id number] Family : Order #: [id number] CLICK HERE TO VIEW EXAM RADIOLOGY REPORT [...] Marie M.D. on 12/06/2022 at 07:26 Normal [facility] ECHOCARDIO M/2D COMPLETEon 0 11-27-2022 ECHOCARDIO M/2D COMPLETE Patient: SHEILA MAC Exam Date: 11/27/2022 : 1950 Gender:F Ordering : DR KRZYSZTOF HARP . Admission #: [id number] Family : Order #: [id number] CLICK HERE TO VIEW EXAM ECHOCARDIOGRAM REPORT [...] Gaspar M.D. on 11/27/2022 at 14:39 Normal [facility] CBC AUTO DIFFon 11-26-2022 BASO # 0.0 103/ul Normal 0.0-0.1 [facility] Comment on above: Performed By: #### I NSULIN #### [facility] [address] [place] [address] Dr. Ekta Funk Basophils/100 WBC (Bld) 0.6 % Normal 0.2-2.0 [facility] Comment on above: Performed By: #### I NSULIN #### [facility] [address] [place] [address] Dr. Ekta Funk EO # 0.3 103/ul Normal 0.0-0.7 [facility] Comment on above: Performed By: #### I NSULIN #### [facility] [address] [place] [address] Dr. Ekta Funk Eosinophils/100 WBC (Bld) 4.8 % Normal 0.9-7.0 [facility] Comment on above: Performed By: #### I NSULIN #### [facility] [address] [place] [address] Dr. Ekta Funk Erythrocyte distribution width (RBC) [Ratio] 13.3 % Normal 11.0-15.0 [facility] Comment on above: Performed By: #### I NSULIN #### [facility] [address] [place] [address] Dr. Ekta Funk Hematocrit (Bld) [Volume fraction] 29.1 % Critically low 36.0-48.0 [facility] Comment on above: Performed By: #### I NSULIN #### [facility] [address] [place] [address] Dr. Ekta Funk Hemoglobin (Bld) [Mass/Vol] 9.5 g/dL Critically low 12.0-16.0 [facility] Comment on above: Performed By: #### I NSULIN #### [facility] [address] [place] [address] Dr. Ekta Funk IG # 0.07 10e3/ul Critically high 0.00-0.03 [facility] Comment on above: Performed By: #### I NSULIN #### [facility] [address] [place] [address] Dr. Ekta Funk IG % 1.0 % Critically high 0.0-0.5 [facility] Comment on above: Performed By: #### I NSULIN #### [facility] [address] [place] [address] Dr. Ekta Funk LYMPH # 1.2 103/ul Normal 1.2-3.8 [facility] Comment on above: Performed By: #### I NSULIN #### [facility] [address] [place] [address] Dr. Ekta Funk Lymphocytes/100 WBC (Bld) 17.2 % Critically low 20.5-60.0 [facility] Comment on above: Performed By: #### I NSULIN #### [facility] [address] [place] [address] Dr. Ekta Funk MANUAL DIFF REQ NO Normal [facility] Comment on above: Performed By: #### I NSULIN #### [facility] [address] [place] [address] Dr. Ekta Funk MCH (RBC) [Entitic mass] 31.7 pg Normal 26.7-34.0 [facility] Comment on above: Performed By: #### I NSULIN #### [facility] [address] [place] [address] Dr. Ekta Funk MCHC (RBC) [Mass/Vol] 32.6 g/dL Normal 29.9-35.2 [facility] Comment on above: Performed By: #### I NSULIN #### [facility] [address] [place] [address] Dr. Ekta Funk MCV (RBC) [Entitic vol] 97.0 fL Normal 81.0-99.0 [facility] Comment on above: Performed By: #### I NSULIN #### [facility] [address] [place] [address] Dr. Ekta Funk MONO # 0.8 103/ul Normal 0.3-0.8 [facility] Comment on above: Performed By: #### I NSULIN #### [facility] [address] [place] [address] Dr. Ekta Funk Monocytes/100 WBC (Bld) 11.1 % Normal 1.7-12.0 [facility] Comment on above: Performed By: #### I NSULIN #### [facility] [address] [place] [address] Dr. Ekta Funk NEUT # 4.5 103/ul Normal 1.4-6.5 [facility] Comment on above: Performed By: #### I NSULIN #### [facility] [address] [place] [address] Dr. Ekta Funk Neutrophils/100 WBC (Bld) 65.3 % Normal 43.0-75.0 [facility] Comment on above: Performed By: #### I NSULIN #### [facility] [address] [place] [address] Dr. Ekta Funk Platelet mean volume (Bld) [Entitic vol] 9.4 fL Critically low 9.5-13.5 [facility] Comment on above: Performed By: #### I NSULIN #### [facility] [address] [place] [address] Dr. Ekta Funk PLT 263 103/ul Normal 150-450 [facility] Comment on above: Performed By: #### I NSULIN #### [facility] [address] [place] [address] Dr. Ekta Funk RBC 3.00 106/ul Critically low 4.20-5.40 [facility] Comment on above: Performed By: #### I NSULIN #### [facility] [address] [place] [address] Dr. Ekta Funk WBC 6.9 103/ul Normal 4.0-11.0 [facility] Comment on above: Performed By: #### I NSULIN #### [facility] [address] [place] [address] Dr. Ekta Funk PROF 14(COMP METB)on 023 Albumin [Mass/Vol] 2.2 g/dL Critically low 3.4-5.0 [facility] Comment on above: Performed By: #### C MP #### [facility] [address] [place] [address] Dr. Ekta Funk Albumin/Globulin [Mass ratio] 0.6 {ratio} Normal [facility] Comment on above: Performed By: #### C MP #### [facility] [address] [place] [address] Dr. Ekta Funk ALP [Catalytic activity/Vol] 82 U/L Normal 46-116 [facility] Comment on above: Performed By: #### C MP #### [facility] [address] [place] [address] Dr. Ekta Funk ALT [Catalytic activity/Vol] 13 U/L Critically low 14-59 [facility] Comment on above: Performed By: #### C MP #### [facility] [address] [place] [address] Dr. Ekta Funk Anion gap [Moles/Vol] 14.0 mmol/L Normal [facility] Comment on above: Performed By: #### C MP #### [facility] [address] [place] [address] Dr. Ekta Funk AST [Catalytic activity/Vol] 18 U/L Normal 15-37 [facility] Comment on above: Performed By: #### C MP #### [facility] [address] [place] [address] Dr. Ekta Funk Bilirubin [Mass/Vol] 0.4 mg/dL Normal 0.2-1.0 [facility] Comment on above: Performed By: #### C MP #### [facility] [address] [address] [address] Ekta Funk Calcium [Mass/Vol] 8.6 mg/dL Normal 8.5-10.1 [facility] Comment on above: Performed By: #### C MP #### [facility] [address] [address] [address] Ekta Funk Chloride [Moles/Vol] 108 mmol/L Critically high 98-107 [facility] Comment on above: Performed By: #### C MP #### [facility] [address] [address] [address] Ekta Funk CO2 [Moles/Vol] 19.6 mmol/L Critically low 21.0-32.0 [facility] Comment on above: Performed By: #### C MP #### [facility] [address] [address] [address] Ekta Funk Creatinine [Mass/Vol] 1.70 mg/dL Critically high 0.55-1.02 [facility] Comment on above: Performed By: #### C MP #### [facility] [address] [address] [address] Ekta Funk EGFR-AF [facility] 36 mL/min/1.73m2 Critically low >=60 [facility] Comment on above: Performed By: #### C MP #### [facility] [address] [address] [address] Ekta Funk EGFR-NON AF [facility] 29 mL/min/1.73m2 Critically low >=60 [facility] Comment on above: Performed By: #### C MP #### [facility] [address] [address] [address] Ekta Funk Globulin (S) [Mass/Vol] 3.6 g/dL Normal [facility] Comment on above: Performed By: #### C MP #### [facility] [address] [address] [address] Ekta Funk Glucose [Mass/Vol] 103 mg/dL Normal 74-106 [facility] Comment on above: Performed By: #### C MP #### [facility] [address] [address] [address] Ekta Funk Potassium [Moles/Vol] 4.6 mmol/L Normal 3.5-5.1 [facility] Comment on above: Performed By: #### C MP #### [facility] [address] [address] [address] Ekta Funk Protein [Mass/Vol] 5.8 g/dL Critically low 6.4-8.2 [facility] Comment on above: Performed By: #### C MP #### [facility] [address] [address] [address] Ekta Funk Sodium [Moles/Vol] 137 mmol/L Normal 136-145 [facility] Comment on above: Performed By: #### C MP #### [facility] [address] [address] [address] Ekta Funk Urea nitrogen [Mass/Vol] 26.0 mg/dL Critically high 7.0-18.0 [facility] Comment on above: Performed By: #### C MP #### [facility] [address] [address] [address] Ekta Funk Urea nitrogen/Creatinine [Mass ratio] 15.3 mg/mg Normal [facility] Comment on above: Performed By: #### C MP #### [facility] [address] [place] [address] Dr. Ekta Funk CBC AUTO DIFFon 11-25-2022 BASO # 0.1 103/ul Normal 0.0-0.1 [facility] Comment on above: Performed By: #### C BC #### [facility] [address] [address] [address] Ekta Funk Basophils/100 WBC (Bld) 0.7 % Normal 0.2-2.0 [facility] Comment on above: Performed By: #### C BC #### [facility] [address] [place] [address] Dr. Ekta Funk EO # 0.3 103/ul Normal 0.0-0.7 [facility] Comment on above: Performed By: #### C BC #### [facility] [address] [address] [address] Ekta Funk Eosinophils/100 WBC (Bld) 3.4 % Normal 0.9-7.0 [facility] Comment on above: Performed By: #### C BC #### [facility] [address] [address] [address] Ekta Funk Erythrocyte distribution width (RBC) [Ratio] 13.6 % Normal 11.0-15.0 [facility] Comment on above: Performed By: #### C BC #### [facility] [address] [address] [address] Ekta Funk Hematocrit (Bld) [Volume fraction] 32.1 % Critically low 36.0-48.0 [facility] Comment on above: Performed By: #### C BC #### [facility] [address] [place] [address] Dr. Ekta Funk Hemoglobin (Bld) [Mass/Vol] 10.3 g/dL Critically low 12.0-16.0 [facility] Comment on above: Performed By: #### C BC #### [facility] [address] [place] [address] Dr. Ekta Funk IG # 0.08 10e3/ul Critically high 0.00-0.03 [facility] Comment on above: Performed By: #### C BC #### [facility] [address] [place] [address] Dr. Ekta Funk IG % 0.9 % Critically high 0.0-0.5 [facility] Comment on above: Performed By: #### C BC #### [facility] [address] [address] [address] Ekta Funk LYMPH # 0.9 103/ul Critically low 1.2-3.8 [facility] Comment on above: Performed By: #### C BC #### [facility] [address] [place] [address] Dr. Ekta Funk Lymphocytes/100 WBC (Bld) 10.7 % Critically low 20.5-60.0 [facility] Comment on above: Performed By: #### C BC #### [facility] [address] [place] [address] Dr. Ekta Funk MANUAL DIFF REQ NO Normal [facility] Comment on above: Performed By: #### C BC #### [facility] [address] [place] [address] Dr. Ekta Funk MCH (RBC) [Entitic mass] 32.2 pg Normal 26.7-34.0 [facility] Comment on above: Performed By: #### C BC #### [facility] [address] [place] [address] Dr. Ekta Funk MCHC (RBC) [Mass/Vol] 32.1 g/dL Normal 29.9-35.2 [facility] Comment on above: Performed By: #### C BC #### [facility] [address] [place] [address] Dr. Ekta Funk MCV (RBC) [Entitic vol] 100.3 fL Critically high 81.0-99.0 [facility] Comment on above: Performed By: #### C BC #### [facility] [address] [place] [address] Dr. Ekta Funk MONO # 0.9 103/ul Critically high 0.3-0.8 [facility] Comment on above: Performed By: #### C BC #### [facility] [address] [place] [address] Dr. Ekta Funk Monocytes/100 WBC (Bld) 9.9 % Normal 1.7-12.0 [facility] Comment on above: Performed By: #### C BC #### [facility] [address] [place] [address] Dr. Ekta Funk NEUT # 6.4 103/ul Normal 1.4-6.5 [facility] Comment on above: Performed By: #### C BC #### [facility] [address] [place] [address] Dr. Ekta Funk Neutrophils/100 WBC (Bld) 74.4 % Normal 43.0-75.0 [facility] Comment on above: Performed By: #### C BC #### [facility] [address] [place] [address] Dr. Ekta Funk Platelet mean volume (Bld) [Entitic vol] 9.5 fL Normal 9.5-13.5 [facility] Comment on above: Performed By: #### C BC #### [facility] [address] [place] [address] Dr. Ekta Funk PLT 267 103/ul Normal 150-450 [facility] Comment on above: Performed By: #### C BC #### [facility] [address] [place] [address] Dr. Ekta Funk RBC 3.20 106/ul Critically low 4.20-5.40 [facility] Comment on above: Performed By: #### C BC #### [facility] [address] [place] [address] Dr. Ekta Funk WBC 8.6 103/ul Normal 4.0-11.0 [facility] Comment on above: Performed By: #### C BC #### [facility] [address] [place] [address] Dr. Ekta Funk BASO # 0.1 103/ul Normal 0.0-0.1 [facility] Comment on above: Performed By: #### C MP #### [facility] [address] [place] [address] Dr. Ekta Funk Basophils/100 WBC (Bld) 0.7 % Normal 0.2-2.0 [facility] Comment on above: Performed By: #### C MP #### [facility] [address] [place] [address] Dr. Ekta Funk EO # 0.3 103/ul Normal 0.0-0.7 [facility] Comment on above: Performed By: #### C MP #### [facility] [address] [place] [address] Dr. Ekta Funk Eosinophils/100 WBC (Bld) 3.9 % Normal 0.9-7.0 [facility] Comment on above: Performed By: #### C MP #### [facility] [address] [address] [address] Ekta Funk Erythrocyte distribution width (RBC) [Ratio] 13.2 % Normal 11.0-15.0 [facility] Comment on above: Performed By: #### C MP #### [facility] [address] [place] [address] Dr. Ekta Funk Hematocrit (Bld) [Volume fraction] 28.0 % Critically low 36.0-48.0 [facility] Comment on above: Performed By: #### C MP #### [facility] [address] [place] [address] Dr. Ekta Funk Hemoglobin (Bld) [Mass/Vol] 9.3 g/dL Critically low 12.0-16.0 [facility] Comment on above: Performed By: #### C MP #### [facility] [address] [place] [address] Dr. Ekta Funk IG # 0.08 10e3/ul Critically high 0.00-0.03 [facility] Comment on above: Performed By: #### C MP #### [facility] [address] [place] [address] Dr. Ekta Funk IG % 1.1 % Critically high 0.0-0.5 [facility] Comment on above: Performed By: #### C MP #### [facility] [address] [place] [address] Dr. Ekta Funk LYMPH # 0.9 103/ul Critically low 1.2-3.8 [facility] Comment on above: Performed By: #### C MP #### [facility] [address] [place] [address] Dr. Ekta Funk Lymphocytes/100 WBC (Bld) 12.1 % Critically low 20.5-60.0 [facility] Comment on above: Performed By: #### C MP #### [facility] [address] [place] [address] Dr. Ekta Funk MANUAL DIFF REQ NO Normal [facility] Comment on above: Performed By: #### C MP #### [facility] [address] [place], [place] [id number] Dr. Ekta Funk MCH (RBC) [Entitic mass] 32.0 pg Normal 26.7-34.0 [facility] Comment on above: Performed By: #### C MP #### [facility] [address] [place] [address] Dr. Ekta Funk MCHC (RBC) [Mass/Vol] 33.2 g/dL Normal 29.9-35.2 [facility] Comment on above: Performed By: #### C MP #### [facility] [address] [place] [address] Dr. Ekta Funk MCV (RBC) [Entitic vol] 96.2 fL Normal 81.0-99.0 [facility] Comment on above: Performed By: #### C MP #### [facility] [address] [place] [address] Dr. Ekta Funk MONO # 0.7 103/ul Normal 0.3-0.8 [facility] Comment on above: Performed By: #### C MP #### [facility] [address] [place] [address] Dr. Ekta Funk Monocytes/100 WBC (Bld) 9.8 % Normal 1.7-12.0 [facility] Comment on above: Performed By: #### C MP #### [facility] [address] [place] [address] Dr. Ekta Funk NEUT # 5.2 103/ul Normal 1.4-6.5 [facility] Comment on above: Performed By: #### C MP #### [facility] [address] [place] [address] Dr. Ekta Funk Neutrophils/100 WBC (Bld) 72.4 % Normal 43.0-75.0 [facility] Comment on above: Performed By: #### C MP #### [facility] [address] [place] [address] Dr. Ekta Funk Platelet mean volume (Bld) [Entitic vol] 9.4 fL Critically low 9.5-13.5 [facility] Comment on above: Performed By: #### C MP #### [facility] [address] [place] [address] Dr. Ekta Funk PLT 250 103/ul Normal 150-450 [facility] Comment on above: Performed By: #### C MP #### [facility] [address] [place] [address] Dr. Ekta Funk RBC 2.91 106/ul Critically low 4.20-5.40 [facility] Comment on above: Performed By: #### C MP #### [facility] [address] [place] [address] Dr. Ekta Funk WBC 7.2 103/ul Normal 4.0-11.0 [facility] Comment on above: Performed By: #### C MP #### [facility] [address] [place] [address] Dr. Ekta uFnk PROF 14(COMP METB)on 023 Albumin [Mass/Vol] 2.1 g/dL Critically low 3.4-5.0 [facility] Comment on above: Performed By: #### C MP #### [facility] [address] [place] [address] Dr. Etka Funk Albumin/Globulin [Mass ratio] 0.6 {ratio} Normal [facility] Comment on above: Performed By: #### C MP #### [facility] [address] [place] [address] Dr. Ekta Funk ALP [Catalytic activity/Vol] 68 U/L Normal 46-116 [facility] Comment on above: Performed By: #### C MP #### [facility] [address] [place] [address] Dr. Ekta Funk ALT [Catalytic activity/Vol] 14 U/L Normal 14-59 [facility] Comment on above: Performed By: #### C MP #### [facility] [address] [place] [address] Dr. Ekta Funk Anion gap [Moles/Vol] 12.9 mmol/L Normal [facility] Comment on above: Performed By: #### C MP #### [facility] [address] [place] [address] Dr. Ekta Funk AST [Catalytic activity/Vol] 14 U/L Critically low 15-37 [facility] Comment on above: Performed By: #### C MP #### [facility] [address] [address] [address] Ekta Funk Bilirubin [Mass/Vol] 0.3 mg/dL Normal 0.2-1.0 [facility] Comment on above: Performed By: #### C MP #### [facility] [address] [address] [address] Ekta Funk Calcium [Mass/Vol] 8.3 mg/dL Critically low 8.5-10.1 [facility] Comment on above: Performed By: #### C MP #### [facility] [address] [place] [address] Dr. Ekta Funk Chloride [Moles/Vol] 109 mmol/L Critically high 98-107 [facility] Comment on above: Performed By: #### C MP #### [facility] [address] [address] [address] Ekta Funk CO2 [Moles/Vol] 19.3 mmol/L Critically low 21.0-32.0 [facility] Comment on above: Performed By: #### C MP #### [facility] [address] [place] [address] Dr. Ekta Funk Creatinine [Mass/Vol] 1.54 mg/dL Critically high 0.55-1.02 [facility] Comment on above: Performed By: #### C MP #### [facility] [address] [address] [address] Ekta Funk EGFR-AF [facility] 40 mL/min/1.73m2 Critically low >=60 [facility] Comment on above: Performed By: #### C MP #### [facility] [address] [place] [address] Dr. Ekta Funk EGFR-NON AF [facility] 33 mL/min/1.73m2 Critically low >=60 [facility] Comment on above: Performed By: #### C MP #### [facility] [address] [place] [address] Dr. Ekta Funk Globulin (S) [Mass/Vol] 3.7 g/dL Normal [facility] Comment on above: Performed By: #### C MP #### [facility] [address] [place] [address] Dr. Ekta Funk Glucose [Mass/Vol] 117 mg/dL Critically high 74-106 [facility] Comment on above: Performed By: #### C MP #### [facility] [address] [address] [address] Ekta Funk Potassium [Moles/Vol] 4.2 mmol/L Normal 3.5-5.1 [facility] Comment on above: Performed By: #### C MP #### [facility] [address] [place] [address] Dr. Ekta Funk Protein [Mass/Vol] 5.8 g/dL Critically low 6.4-8.2 [facility] Comment on above: Performed By: #### C MP #### [facility] [address] [place] [address] Dr. Ekta Funk Sodium [Moles/Vol] 137 mmol/L Normal 136-145 [facility] Comment on above: Performed By: #### C MP #### [facility] [address] [place] [address] Dr. Ekta Funk Urea nitrogen [Mass/Vol] 27.0 mg/dL Critically high 7.0-18.0 [facility] Comment on above: Performed By: #### C MP #### [facility] [address] [place] [address] Dr. Ekta Funk Urea nitrogen/Creatinine [Mass ratio] 17.5 mg/mg Normal [facility] Comment on above: Performed By: #### C MP #### [facility] [address] [address] [address] Ekta Funk AMMONIAon 11-24-2022 Ammonia (P) [Moles/Vol] 13 umol/L Normal 11-32 [facility] Comment on above: Performed By: #### C VDTBH #### [facility] [address] [place] [address] Dr. Ekta Funk CBC AUTO DIFFon 11-24-2022 BASO # 0.0 103/ul Normal 0.0-0.1 [facility] Comment on above: Performed By: #### C MP #### [facility] [address] [address] [address] Ekta Funk Basophils/100 WBC (Bld) 0.4 % Normal 0.2-2.0 [facility] Comment on above: Performed By: #### C MP #### [facility] [address] [address] [address] Ekta Funk EO # 0.4 103/ul Normal 0.0-0.7 [facility] Comment on above: Performed By: #### C MP #### [facility] [address] [address] [address] Ekta Funk Eosinophils/100 WBC (Bld) 3.8 % Normal 0.9-7.0 [facility] Comment on above: Performed By: #### C MP #### [facility] [address] [address] [address] Ekta Funk Erythrocyte distribution width (RBC) [Ratio] 13.2 % Normal 11.0-15.0 [facility] Comment on above: Performed By: #### C MP #### [facility] [address] [place] [address] Dr. Ekta Funk Hematocrit (Bld) [Volume fraction] 34.0 % Critically low 36.0-48.0 [facility] Comment on above: Performed By: #### C MP #### [facility] [address] [place] [address] Dr. Ekta Funk Hemoglobin (Bld) [Mass/Vol] 11.5 g/dL Critically low 12.0-16.0 [facility] Comment on above: Performed By: #### C MP #### [facility] [address] [place] [address] Dr. Ekta Funk IG # 0.11 10e3/ul Critically high 0.00-0.03 [facility] Comment on above: Performed By: #### C MP #### [facility] [address] [place] [address] Dr. Ekta Funk IG % 1.2 % Critically high 0.0-0.5 [facility] Comment on above: Performed By: #### C MP #### [facility] [address] [place] [address] Dr. Ekta Funk LYMPH # 1.4 103/ul Normal 1.2-3.8 [facility] Comment on above: Performed By: #### C MP #### [facility] [address] [place] [address] Dr. Ekta Funk Lymphocytes/100 WBC (Bld) 14.9 % Critically low 20.5-60.0 [facility] Comment on above: Performed By: #### C MP #### [facility] [address] [place] [address] Dr. Ekta Funk MANUAL DIFF REQ NO Normal [facility] Comment on above: Performed By: #### C MP #### [facility] [address] [place] [address] Dr. Ekta Funk MCH (RBC) [Entitic mass] 32.5 pg Normal 26.7-34.0 [facility] Comment on above: Performed By: #### C MP #### [facility] [address] [place] [address] Dr. Ekta Funk MCHC (RBC) [Mass/Vol] 33.8 g/dL Normal 29.9-35.2 [facility] Comment on above: Performed By: #### C MP #### [facility] [address] [place] [address] Dr. Ekta Funk MCV (RBC) [Entitic vol] 96.0 fL Normal 81.0-99.0 [facility] Comment on above: Performed By: #### C MP #### [facility] [address] [place] [address] Dr. Ekta Funk MONO # 0.9 103/ul Critically high 0.3-0.8 [facility] Comment on above: Performed By: #### C MP #### [facility] [address] [place] [address] Dr. Ekta Funk Monocytes/100 WBC (Bld) 9.7 % Normal 1.7-12.0 [facility] Comment on above: Performed By: #### C MP #### [facility] [address] [place] [address] Dr. Ekta Funk NEUT # 6.4 103/ul Normal 1.4-6.5 [facility] Comment on above: Performed By: #### C MP #### [facility] [address] [address] [address] Ekta Funk Neutrophils/100 WBC (Bld) 70.0 % Normal 43.0-75.0 [facility] Comment on above: Performed By: #### C MP #### [facility] [address] [place] [address] Dr. Ekta Funk Platelet mean volume (Bld) [Entitic vol] 9.3 fL Critically low 9.5-13.5 [facility] Comment on above: Performed By: #### C MP #### [facility] [address] [place] [address] Dr. Ekta Funk PLT 308 103/ul Normal 150-450 [facility] Comment on above: Performed By: #### C MP #### [facility] [address] [place] [address] Dr. Ekta Funk RBC 3.54 106/ul Critically low 4.20-5.40 [facility] Comment on above: Performed By: #### C MP #### [facility] [address] [place] [address] Dr. Ekta Funk WBC 9.1 103/ul Normal 4.0-11.0 [facility] Comment on above: Performed By: #### C MP #### [facility] [address] [place] [address] Dr. Ekta Funk CPKon 11-24-2022 CK [Catalytic activity/Vol] 21 U/L Critically low 26-192 [facility] Comment on above: Performed By: #### B 12FOL, VITAD, IRON #### [facility] [address] [place] [address] STROKE HEAD WOon [...] by: VANESSA PARADA Date: 2022-11-24 11:09 Normal [facility] CTA HEAD WO W CONon 11-25-19 [...] VISHNU MARIE Date: 2022-11-24 12:41 Normal [facility] CULTURE URINEon 11-24-2022 CULTURE URINE Culture Observations : NO GROWTH. Normal [facility] Comment on above: Performed By: #### I NSULIN #### [facility] [address] [place] [address] Dr. Ekta Funk [facility] SARS-CoV-2 (COVID-19) RNA GANESH+probe Ql (Unsp spec) Not detected Normal NOT DETECTED [facility] Comment on above: Result Comment: When [...] for this test is supported by the [place] of Health and Human Service's declaration that [...] longer be used). Performed By: #### C VDTB #### [facility] [address] [place] [address] Dr. Ekta Funk ER URINE PROFILEon 3 Bilirubin Ql (U) Negative Normal NEGATIVE [facility] Comment on above: Performed By: #### C BC #### [facility] [address] [place] [address] Dr. Ekta Funk Clarity (U) CLEAR Normal CLEAR [facility] Comment on above: Performed By: #### C BC #### [facility] [address] [place] [address] Dr. Ekta Funk Color (U) LT. YELLOW Normal YELLOW [facility] Comment on above: Performed By: #### C BC #### [facility] [address] [place] [address] Dr. Ekta COLÓN A micrscopic examination will be performed if indicated. Normal [facility] Comment on above: Performed By: #### C BC #### [facility] [address] [place] [address] Dr. Ekta Funk Glucose Ql (U) Negative Normal NEGATIVE The [facility] Comment on above: Performed By: #### C BC #### [facility] [address] [place] [address] Dr. Ekta Funk Hemoglobin Ql (U) Negative Normal NEGATIVE The [facility] Comment on above: Performed By: #### C BC #### [facility] [address] [place] [address] Dr. Ekta Funk Ketones Ql (U) Negative Normal NEGATIVE [facility] Comment on above: Performed By: #### C BC #### [facility] [address] [place] [address] Dr. Ekta Funk LEUKOCYTES Negative Normal NEGATIVE [facility] Comment on above: Performed By: #### C BC #### [facility] [address] [place] [address] Dr. Ekta Funk Nitrite Ql (U) Negative Normal NEGATIVE [facility] Comment on above: Performed By: #### C BC #### [facility] [address] [place] [address] Dr. Ekta Funk pH (U) 5.5 [pH] Normal 5-9 [facility] Comment on above: Performed By: #### C BC #### [facility] [address] [place] [address] Dr. Ekta Funk SPEC GRAVITY 1.020 Normal 1.005-<=1.025 [facility] Comment on above: Performed By: #### C BC #### [facility] [address] [place] [address] Dr. Ekta Funk UA PROTEIN Negative Normal NEGATIVE/ TRACE [facility] Comment on above: Performed By: #### C BC #### [facility] [address] [place] [address] Dr. Ekta Funk UR MICRO IND NOT INDICATED Normal [facility] Comment on above: Performed By: #### C BC #### [facility] [address] [place] [address] Dr. Ekta Funk Urobilinogen Qn (U) 0.2 {Ivan'U}/dL Normal 0.2 - 1. 0 [facility] Comment on above: Performed By: #### C BC #### [facility] [address] [place] [address] Dr. Ekta Funk GLYCOHEMOGLOBIN A1Con 2022 ADA RECOMMENDATION SEE BELOW Normal [facility] Comment on above: Result Comment: ADA RECOMMENDED LIMIT 4.0 - 6.0 ADA THERAPEUTIC TARGET < 7.0 ACTION SUGGESTED > 7.0 Performed By: #### B 12FOL, VITAD, IRON #### [facility] [address] [place] [address] Dr. Ekta Funk Glucose [Mass/Vol] 143 mg/dL Normal [facility] Comment on above: Performed By: #### B 12FOL, VITAD, IRON #### [facility] [address] [place] [address] Dr. Ekta Funk HbA1c (Bld) [Mass fraction] 6.6 % Critically high 4.5-6.2 [facility] Comment on above: Performed By: #### B 12FOL, VITAD, IRON #### [facility] [address] [place] [address] Dr. Ekta Funk LACTATE/LACTIC ACIDon 2022 Lactate [Moles/Vol] 1.6 mmol/L Normal 0.4-2.0 [facility] Comment on above: Performed By: #### C MP #### [facility] [address] [place] [address] Dr. Ekta Funk Lactate [Moles/Vol] 2.1 mmol/L Critically high 0.4-2.0 [facility] Comment on above: Performed By: #### B 12FOL, VITAD, IRON #### [facility] [address] [place] [address] Dr. Ekta Funk LIPASEon 11-24-2022 Lipase [Catalytic activity/Vol] 165.0 U/L Normal 73.0-393.0 [facility] Comment on above: Performed By: #### B 12FOL, VITAD, IRON #### [facility] [address] [place] [address] Dr. Ekta Funk LIPID PROFILEon 11-24-2022 CHOL-HDL RATIO NORM SEE BELOW Normal The [facility] Comment on above: Result Comment: 3.3 - 4.4 LOW RISK 4.4 - 7.1 AVERAGE RISK 7.1 - 11.0 MODERATE RISK >11.0 HIGH RISK Performed By: #### B 12FOL, VITAD, IRON #### [facility] [address] [place] [address] Dr. Ekta Funk Cholesterol [Mass/Vol] 248 mg/dL Critically high <=200 [facility] Comment on above: Performed By: #### B 12FOL, VITAD, IRON #### [facility] [address] [address] [address] Ekta Funk Cholesterol in HDL [Mass/Vol] 58 mg/dL Normal 40-60 [facility] Comment on above: Performed By: #### B 12FOL, VITAD, IRON #### [facility] [address] [address] [address] Ekta Funk Cholesterol in LDL [Mass/Vol] 165.6 mg/dL Normal [facility] Comment on above: Performed By: #### B 12FOL, VITAD, IRON #### [facility] [address] [address] [address] Ekta Funk Cholesterol.total/Ch olesterol in HDL [Mass ratio] 4.3 {ratio} Normal [facility] Comment on above: Performed By: #### B 12FOL, VITAD, IRON #### [facility] [address] [address] [address] Ekta Funk HDL NORMAL > or = 60 mg/dl - LO W CARDIOVASCULAR RISK <40 mg/dl - HIGH CARDIOVASCULAR RISK Normal [facility] Comment on above: Performed By: #### B 12FOL, VITAD, IRON #### [facility] [address] [place] [address] Dr. Ekta Funk LDL CALC NORMAL SEE BELOW Normal [facility] Comment on above: Result Comment: <100 mg/dl OPTIMAL 100 - 129 mg/dl NEAR OR ABOVE OPTIMAL 130 - 159 mg/dl BORDERLINE HIGH 160 - 189 mg/dl HIGH >190 mg/dl VERY HIGH Performed By: #### B 12FOL, VITAD, IRON #### [facility] [address] [address] [address] Ekta Funk Triglyceride [Mass/Vol] 122 mg/dL Normal <=150 [facility] Comment on above: Performed By: #### B 12FOL, VITAD, IRON #### [facility] [address] [place] [address] Dr. Ekta Funk VLDL CALC 24.4 mg/dL Normal [facility] Comment on above: Performed By: #### B 12FOL, VITAD, IRON #### [facility] [address] [place], [place] [address] Dr. Ekta Funk MRI BRAIN WO CONon [...] by: RAVEN ELAINE Date: 2022-11-24 19:35 Normal [facility] PROF 14(COMP METB)on 023 Albumin [Mass/Vol] 2.7 g/dL Critically low 3.4-5.0 [facility] Comment on above: Performed By: #### B 12FOL, VITAD, IRON #### [facility] [address] [place], [place] [address] Dr. Ekta Funk Albumin/Globulin [Mass ratio] 0.6 {ratio} Normal [facility] Comment on above: Performed By: #### B 12FOL, VITAD, IRON #### [facility] [address] [place], [place] [address] Dr. Ekta Funk ALP [Catalytic activity/Vol] 85 U/L Normal 46-116 [facility] Comment on above: Performed By: #### B 12FOL, VITAD, IRON #### [facility] [address] [address] [address] Ekta Funk ALT [Catalytic activity/Vol] 18 U/L Normal 14-59 [facility] Comment on above: Performed By: #### B 12FOL, VITAD, IRON #### [facility] [address] [address] [address] Ekta Funk Anion gap [Moles/Vol] 18.9 mmol/L Normal [facility] Comment on above: Performed By: #### B 12FOL, VITAD, IRON #### [facility] [address] [place] [address] Dr. Ekta Funk AST [Catalytic activity/Vol] 16 U/L Normal 15-37 [facility] Comment on above: Performed By: #### B 12FOL, VITAD, IRON #### [facility] [address] [place] [address] Dr. Ekta Funk Bilirubin [Mass/Vol] 0.4 mg/dL Normal 0.2-1.0 [facility] Comment on above: Performed By: #### B 12FOL, VITAD, IRON #### [facility] [address] [place] [address] Dr. Ekta Funk Calcium [Mass/Vol] 9.5 mg/dL Normal 8.5-10.1 [facility] Comment on above: Performed By: #### B 12FOL, VITAD, IRON #### [facility] [address] [place] [address] Dr. Ekta Funk Chloride [Moles/Vol] 108 mmol/L Critically high 98-107 [facility] Comment on above: Performed By: #### B 12FOL, VITAD, IRON #### [facility] [address] [place] [address] Dr. Ekta Funk CO2 [Moles/Vol] 21.1 mmol/L Normal 21.0-32.0 [facility] Comment on above: Performed By: #### B 12FOL, VITAD, IRON #### [facility] [address] [address] [address] Ekta Funk Creatinine [Mass/Vol] 2.08 mg/dL Critically high 0.55-1.02 [facility] Comment on above: Performed By: #### B 12FOL, VITAD, IRON #### [facility] [address] [place] [address] Dr. Ekta Funk EGFR-AF [facility] LUCIAN 28 mL/min/1.73m2 Critically low >=60 [facility] Comment on above: Performed By: #### B 12FOL, VITAD, IRON #### [facility] [address] [place] [address] Dr. Ekta Funk EGFR-NON AF [facility] LUCIAN 23 mL/min/1.73m2 Critically low >=60 [facility] Comment on above: Performed By: #### B 12FOL, VITAD, IRON #### [facility] [address] [place] [address] Dr. Ekta Funk Globulin (S) [Mass/Vol] 4.6 g/dL Normal [facility] Comment on above: Performed By: #### B 12FOL, VITAD, IRON #### [facility] [address] [place] [address] Dr. Ekta Funk Glucose [Mass/Vol] 119 mg/dL Critically high 74-106 [facility] Comment on above: Performed By: #### B 12FOL, VITAD, IRON #### [facility] [address] [place] [address] Dr. Ekta Funk Potassium [Moles/Vol] 5.0 mmol/L Normal 3.5-5.1 [facility] Comment on above: Performed By: #### B 12FOL, VITAD, IRON #### [facility] [address] [place] [address] Dr. Ekta Funk Protein [Mass/Vol] 7.3 g/dL Normal 6.4-8.2 [facility] Comment on above: Performed By: #### B 12FOL, VITAD, IRON #### [facility] [address] [place] [address] Dr. Ekta Funk Sodium [Moles/Vol] 143 mmol/L Normal 136-145 [facility] Comment on above: Performed By: #### B NENO LAUGHLINAD, IRON #### [facility] [address] [place] [address] Dr. Ekta Funk Urea nitrogen [Mass/Vol] 37.0 mg/dL Critically high 7.0-18.0 [facility] Comment on above: Performed By: #### Bob FelixFOL VITAD, IRON #### [facility] [address] [address] [address] Ekta Funk Urea nitrogen/Creatinine [Mass ratio] 17.8 mg/mg Normal [facility] Comment on above: Performed By: #### NENO ARTHURAD, IRON #### [facility] [address] [place] [address] Dr. Ekta Funk TROPONIN, HIGH SENSITIVITYon 11-24-2022 HSTROP 14.1 pg/mL Normal 4.0-51.3 [facility] Comment on above: Result Comment: CUT- OFF POINTS HAVE BEEN ESTABLISHED BASED ON THE FOURTH UNIVERSAL DEFINITIONS OF MYOCARDIAL INFARCTION. THE UPPER REFERENCE LIMIT (URL) OF TROPONIN, DEFINED THE 99TH PERCENTILE OF cTnI DISTRIBUTION IN A REFERENCE POPULATION, HAS BEEN CONFIRMED THE DECISION THRESHOLD FOR RI DIAGNOSIS. Performed By: #### CAROLYN ARTHUR, IRON #### [facility] [address] [place] [address] Dr. Ekta Funk TSHon 11-24-2022 TSH 1.184 uIU/mL Normal 0.358-3.740 [facility] Comment on above: Performed By: #### Bob SIDDIQIL VITAD, IRON #### [facility] [address] [place] [address] Dr. Ekta Funk XR CHEST 1 Von [...] NATALIIA TATE Date: 2022-11-24 11:00 Normal [facility] BNPon 11-13-2022 Natriuretic peptide B (Bld) [Mass/Vol] 565.0 pg/mL Normal <=900.0 [facility] Comment on above: Performed By: #### I NSULIN #### [facility] [address] [place] [address] Dr. Ekta Funk CBC AUTO DIFFon 11-13-2022 BASO # 0.1 103/ul Normal 0.0-0.1 [facility] Comment on above: Performed By: #### C BC #### [facility] [address] [place] [address] Dr. Ekta Funk Basophils/100 WBC (Bld) 0.6 % Normal 0.2-2.0 [facility] Comment on above: Performed By: #### C BC #### [facility] [address] [place] [address] Dr. Ekta Funk EO # 0.4 103/ul Normal 0.0-0.7 [facility] Comment on above: Performed By: #### C BC #### [facility] [address] [place] [address] Dr. Ekta Funk Eosinophils/100 WBC (Bld) 3.7 % Normal 0.9-7.0 [facility] Comment on above: Performed By: #### C BC #### [facility] [address] [place] [address] Dr. Ekta Funk Erythrocyte distribution width (RBC) [Ratio] 13.2 % Normal 11.0-15.0 [facility] Comment on above: Performed By: #### C BC #### [facility] [address] [place] [address] Dr. Ekta Funk Hematocrit (Bld) [Volume fraction] 36.7 % Normal 36.0-48.0 [facility] Comment on above: Performed By: #### C BC #### [facility] [address] [address] [address] Ekta Funk Hemoglobin (Bld) [Mass/Vol] 12.4 g/dL Normal 12.0-16.0 [facility] Comment on above: Performed By: #### C BC #### [facility] [address] [place] [address] Dr. Ekta Funk IG # 0.10 10e3/ul Critically high 0.00-0.03 [facility] Comment on above: Performed By: #### C BC #### [facility] [address] [place] [address] Dr. Ekta Funk IG % 1.0 % Critically high 0.0-0.5 [facility] Comment on above: Performed By: #### C BC #### [facility] [address] [place] [address] Dr. Ekta Funk LYMPH # 1.5 103/ul Normal 1.2-3.8 [facility] Comment on above: Performed By: #### C BC #### [facility] [address] [place] [address] Dr. Ekta Funk Lymphocytes/100 WBC (Bld) 14.9 % Critically low 20.5-60.0 [facility] Comment on above: Performed By: #### C BC #### [facility] [address] [place] [address] Dr. Ekta Funk MANUAL DIFF REQ NO Normal [facility] Comment on above: Performed By: #### C BC #### [facility] [address] [place] [address] Dr. Ekta Funk MCH (RBC) [Entitic mass] 32.8 pg Normal 26.7-34.0 [facility] Comment on above: Performed By: #### C BC #### [facility] [address] [place] [address] Dr. Ekta Funk MCHC (RBC) [Mass/Vol] 33.8 g/dL Normal 29.9-35.2 [facility] Comment on above: Performed By: #### C BC #### [facility] [address] [address] [address] Ekta Funk MCV (RBC) [Entitic vol] 97.1 fL Normal 81.0-99.0 [facility] Comment on above: Performed By: #### C BC #### [facility] [address] [address] [address] Ekta Funk MONO # 0.8 103/ul Normal 0.3-0.8 [facility] Comment on above: Performed By: #### C BC #### [facility] [address] [address] [address] Ekta Funk Monocytes/100 WBC (Bld) 7.7 % Normal 1.7-12.0 [facility] Comment on above: Performed By: #### C BC #### [facility] [address] [place] [address] Dr. Ekta Funk NEUT # 7.3 103/ul Critically high 1.4-6.5 [facility] Comment on above: Performed By: #### C BC #### [facility] [address] [place] [address] Dr. Ekta Funk Neutrophils/100 WBC (Bld) 72.1 % Normal 43.0-75.0 [facility] Comment on above: Performed By: #### C BC #### [facility] [address] [place] [address] Dr. Ekta Funk Platelet mean volume (Bld) [Entitic vol] 9.4 fL Critically low 9.5-13.5 [facility] Comment on above: Performed By: #### C BC #### [facility] [address] [place] [address] Dr. Ekta Funk PLT 251 103/ul Normal 150-450 [facility] Comment on above: Performed By: #### C BC #### [facility] [address] [place] [address] Dr. Ekta Funk RBC 3.78 106/ul Critically low 4.20-5.40 [facility] Comment on above: Performed By: #### C BC #### [facility] [address] [address] [address] Ekta Funk WBC 10.1 103/ul Normal 4.0-11.0 [facility] Comment on above: Performed By: #### C BC #### [facility] [address] [address] [address] Ekta Funk FREE THYROXINE INDEX T7on FTI 2.73 Normal 1.30-4.50 [facility] Comment on above: Performed By: #### I NSULIN #### [facility] [address] [place] [address] Dr. Ekta Funk T3U 35.0 % Normal 30.0-39.0 [facility] Comment on above: Performed By: #### I NSULIN #### [facility] [address] [place] [address] Dr. Ekta Funk T4 [Mass/Vol] 7.80 ug/dL Normal 4.80-13.90 [facility] Comment on above: Performed By: #### I NSULIN #### [facility] [address] [place] [address] Dr. Ekta Funk GLYCOHEMOGLOBIN A1Con 2022 ADA RECOMMENDATION SEE BELOW Normal [facility] Comment on above: Result Comment: ADA RECOMMENDED LIMIT 4.0 - 6.0 ADA THERAPEUTIC TARGET < 7.0 ACTION SUGGESTED > 7.0 Performed By: #### B 12FOL, VITAD, IRON #### [facility] [address] [place] [address] Dr. Ekta Funk Glucose [Mass/Vol] 134 mg/dL Normal [facility] Comment on above: Performed By: #### B 12FOL, VITAD, IRON #### [facility] [address] [address] [address] Ekta Funk HbA1c (Bld) [Mass fraction] 6.3 % Critically high 4.5-6.2 [facility] Comment on above: Performed By: #### B 12FOL, VITAD, IRON #### [facility] [address] [address] [address] Ekta Funk IRONon 11-13-2022 Iron [Mass/Vol] 55.0 ug/dL Normal 50.0-170.0 [facility] Comment on above: Performed By: #### B 12FOL, VITAD, IRON #### [facility] [address] [address] [address] Ekta Funk LIPID PROFILEon 11-13-2022 CHOL-HDL RATIO NORM SEE BELOW Normal [facility] Comment on above: Result Comment: 3.3 - 4.4 LOW RISK 4.4 - 7.1 AVERAGE RISK 7.1 - 11.0 MODERATE RISK >11.0 HIGH RISK Performed By: #### I NSULIN #### [facility] [address] [address] [address] Ekta Funk Cholesterol [Mass/Vol] 294 mg/dL Critically high <=200 [facility] Comment on above: Performed By: #### I NSULIN #### [facility] [address] [address] [address] Ekta Funk Cholesterol in HDL [Mass/Vol] 64 mg/dL Critically high 40-60 [facility] Comment on above: Performed By: #### I NSULIN #### [facility] [address] [address] [address] Ekta Funk Cholesterol in LDL [Mass/Vol] 197.2 mg/dL Normal [facility] Comment on above: Performed By: #### I NSULIN #### [facility] [address] [address] [address] Ekta Funk Cholesterol.total/Ch olesterol in HDL [Mass ratio] 4.6 {ratio} Normal [facility] Comment on above: Performed By: #### I NSULIN #### [facility] [address] [address] [address] Ekta Funk HDL NORMAL > or = 60 mg/dl - LO W CARDIOVASCULAR RISK <40 mg/dl - HIGH CARDIOVASCULAR RISK Normal [facility] Comment on above: Performed By: #### I NSULIN #### [facility] [address] [address] [address] Ekta Funk LDL CALC NORMAL SEE BELOW Normal [facility] Comment on above: Result Comment: <100 mg/dl OPTIMAL 100 - 129 mg/dl NEAR OR ABOVE OPTIMAL 130 - 159 mg/dl BORDERLINE HIGH 160 - 189 mg/dl HIGH >190 mg/dl VERY HIGH Performed By: #### I NSULIN #### [facility] [address] [place] [address] Dr. Ekta Funk Triglyceride [Mass/Vol] 164 mg/dL Critically high <=150 [facility] Comment on above: Performed By: #### I NSULIN #### [facility] [address] [place] [address] Dr. Ekta Funk VLDL CALC 32.8 mg/dL Normal [facility] Comment on above: Performed By: #### I NSULIN #### [facility] [address] [place] [address] Dr. Ekta Funk PROF 14(COMP METB)on 023 Albumin [Mass/Vol] 3.0 g/dL Critically low 3.4-5.0 [facility] Comment on above: Performed By: #### I NSULIN #### [facility] [address] [place] [address] Dr. Ekta Funk Albumin/Globulin [Mass ratio] 0.6 {ratio} Normal [facility] Comment on above: Performed By: #### I NSULIN #### [facility] [address] [place] [address] Dr. Ekta Funk ALP [Catalytic activity/Vol] 92 U/L Normal 46-116 [facility] Comment on above: Performed By: #### I NSULIN #### [facility] [address] [place] [address] Dr. Ekta Funk ALT [Catalytic activity/Vol] 26 U/L Normal 14-59 [facility] Comment on above: Performed By: #### I NSULIN #### [facility] [address] [place] [address] Dr. Ekta Funk Anion gap [Moles/Vol] 16.2 mmol/L Normal [facility] Comment on above: Performed By: #### I NSULIN #### [facility] [address] [place] [address] Dr. Ekta Funk AST [Catalytic activity/Vol] 16 U/L Normal 15-37 [facility] Comment on above: Performed By: #### I NSULIN #### [facility] [address] [address] [address] Ekta uFnk Bilirubin [Mass/Vol] 0.5 mg/dL Normal 0.2-1.0 [facility] Comment on above: Performed By: #### I NSULIN #### [facility] [address] [address] [address] Ekta Funk Calcium [Mass/Vol] 9.7 mg/dL Normal 8.5-10.1 [facility] [facility] Comment on above: Performed By: #### I NSULIN #### [facility] [address] [place] [address] Dr. Ekta Funk Chloride [Moles/Vol] 105 mmol/L Normal 98-107 [facility] Comment on above: Performed By: #### I NSULIN #### [facility] [address] [place] [address] Dr. Ekta Funk CO2 [Moles/Vol] 24.9 mmol/L Normal 21.0-32.0 [facility] Comment on above: Performed By: #### I NSULIN #### [facility] [address] [place] [address] Dr. Ekta Funk Creatinine [Mass/Vol] 2.18 mg/dL Critically high 0.55-1.02 [facility] Comment on above: Performed By: #### I NSULIN #### [facility] [address] [place] [address] Dr. Ekta Funk EGFR-AF [facility] 27 mL/min/1.73m2 Critically low >=60 [facility] Comment on above: Performed By: #### I NSULIN #### [facility] [address] [place] [address] Dr. Ekta Funk EGFR-NON AF [facility] 22 mL/min/1.73m2 Critically low >=60 [facility] Comment on above: Performed By: #### I NSULIN #### [facility] [address] [place] [address] Dr. Ekta Funk Globulin (S) [Mass/Vol] 4.7 g/dL Normal [facility] Comment on above: Performed By: #### I NSULIN #### [facility] [address] [place] [address] Dr. Ekta Funk Glucose [Mass/Vol] 114 mg/dL Critically high 74-106 [facility] Comment on above: Performed By: #### I NSULIN #### [facility] [address] [place] [address] Dr. Ekta Funk Potassium [Moles/Vol] 5.1 mmol/L Normal 3.5-5.1 [facility] Comment on above: Performed By: #### I NSULIN #### [facility] [address] [place] [address] Dr. Ekta Funk Protein [Mass/Vol] 7.7 g/dL Normal 6.4-8.2 [facility] Comment on above: Performed By: #### I NSULIN #### [facility] [address] [place] [address] Dr. Ekta Funk Sodium [Moles/Vol] 141 mmol/L Normal 136-145 [facility] Comment on above: Performed By: #### I NSULIN #### [facility] [address] [place] [address] Dr. Ekta Funk Urea nitrogen [Mass/Vol] 51.0 mg/dL Critically high 7.0-18.0 [facility] Comment on above: Performed By: #### I NSULIN #### [facility] [address] [place] [address] Dr. Ekta Funk Urea nitrogen/Creatinine [Mass ratio] 23.4 mg/mg Normal [facility] Comment on above: Performed By: #### I NSULIN #### [facility] [address] [place] [address] Dr. Ekta Funk TSHon 11-13-2022 TSH 0.935 uIU/mL Normal 0.358-3.740 [facility] Comment on above: Performed By: #### I NSULIN #### [facility] [address] [place] [address] Dr. Ekta Funk XR CHEST 2 Von [...] GODWIN BECK Date: 2022-11-13 15:40 Normal [facility] PROF 14(COMP METB)on 023 Albumin [Mass/Vol] 3.0 g/dL Critically low 3.4-5.0 [facility] Comment on above: Performed By: #### B 12FOL, VITAD, IRON #### [facility] [address] [address] [address] Ekta Funk Albumin/Globulin [Mass ratio] 0.7 {ratio} Normal [facility] Comment on above: Performed By: #### B 12FOL, VITAD, IRON #### [facility] [address] [address] [address] Ekta Funk ALP [Catalytic activity/Vol] 89 U/L Normal 46-116 [facility] Comment on above: Performed By: #### B 12FOL, VITAD, IRON #### [facility] [address] [address] [address] Ekta Funk ALT [Catalytic activity/Vol] 29 U/L Normal 14-59 [facility] Comment on above: Performed By: #### B 12FOL, VITAD, IRON #### [facility] [address] [address] [address] Ekta Funk Anion gap [Moles/Vol] 15.2 mmol/L Normal [facility] Comment on above: Performed By: #### B 12FOL, VITAD, IRON #### [facility] [address] [address] [address] Ekta Funk AST [Catalytic activity/Vol] 14 U/L Critically low 15-37 [facility] Comment on above: Performed By: #### B 12FOL, VITAD, IRON #### [facility] [address] [address] [address] Ekta Funk Bilirubin [Mass/Vol] 0.4 mg/dL Normal 0.2-1.0 [facility] Comment on above: Performed By: #### B 12FOL, VITAD, IRON #### [facility] [address] [place] [address] Dr. Ekta Funk Calcium [Mass/Vol] 9.1 mg/dL Normal 8.5-10.1 [facility] Comment on above: Performed By: #### B 12FOL, VITAD, IRON #### [facility] [address] [place] [address] Dr. Ekta Funk Chloride [Moles/Vol] 106 mmol/L Normal 98-107 [facility] Comment on above: Performed By: #### B 12FOL, VITAD, IRON #### [facility] [address] [address] [address] Ekta Funk CO2 [Moles/Vol] 24.2 mmol/L Normal 21.0-32.0 [facility] Comment on above: Performed By: #### B 12FOL, VITAD, IRON #### [facility] [address] [address] [address] Ekta Funk Creatinine [Mass/Vol] 1.89 mg/dL Critically high 0.55-1.02 [facility] Comment on above: Performed By: #### B 12FOL, VITAD, IRON #### [facility] [address] [address] [address] Ekta Funk EGFR-AF [facility] 32 mL/min/1.73m2 Critically low >=60 [facility] Comment on above: Performed By: #### B 12FOL, VITAD, IRON #### [facility] [address] [address] [address] Ekta Funk EGFR-NON AF [facility] 26 mL/min/1.73m2 Critically low >=60 [facility] Comment on above: Performed By: #### B 12FOL, VITAD, IRON #### [facility] [address] [address] [address] Ekta Funk Globulin (S) [Mass/Vol] 4.1 g/dL Normal [facility] Comment on above: Performed By: #### B 12FOL, VITAD, IRON #### [facility] [address] [address] [address] Ekta Funk Glucose [Mass/Vol] 108 mg/dL Critically high 74-106 T [facility] Comment on above: Performed By: #### B 12FOL, VITAD, IRON #### [facility] [address] [place] [address] Dr. Ekta Funk Potassium [Moles/Vol] 4.4 mmol/L Normal 3.5-5.1 [facility] Comment on above: Performed By: #### B 12FOL, VITAD, IRON #### [facility] [address] [place] [address] Dr. Ekta Funk Protein [Mass/Vol] 7.1 g/dL Normal 6.4-8.2 [facility] Comment on above: Performed By: #### B 12FOL, VITAD, IRON #### [facility] [address] [place] [address] Dr. Ekta Funk Sodium [Moles/Vol] 141 mmol/L Normal 136-145 [facility] Comment on above: Performed By: #### B 12FOL, VITAD, IRON #### [facility] [address] [place] [address] Dr. Ekta Funk Urea nitrogen [Mass/Vol] 40.0 mg/dL Critically high 7.0-18.0 [facility] Comment on above: Performed By: #### B 12FOL, VITAD, IRON #### [facility] [address] [place] [address] Dr. Ekta Funk Urea nitrogen/Creatinine [Mass ratio] 21.2 mg/mg Normal [facility] Comment on above: Performed By: #### B 12FOL, VITAD, IRON #### [facility] [address] [place] [address] Dr. Ekta Funk BNPon 10-23-2022 Natriuretic peptide B (Bld) [Mass/Vol] 507.0 pg/mL Normal <=900.0 [facility] Comment on above: Performed By: #### B 12FOL, VITAD, IRON #### [facility] [address] [place] [address] Dr. Ekta Funk CBC AUTO DIFFon 10-23-2022 BASO # 0.0 103/ul Normal 0.0-0.1 [facility] Comment on above: Performed By: #### C BC #### [facility] [address] [place] [address] Dr. Ekta Funk Basophils/100 WBC (Bld) 0.2 % Normal 0.2-2.0 [facility] Comment on above: Performed By: #### C BC #### [facility] [address] [place] [address] Dr. Ekta Funk EO # 0.1 103/ul Normal 0.0-0.7 [facility] Comment on above: Performed By: #### C BC #### [facility] [address] [place] [address] Dr. Ekta Funk Eosinophils/100 WBC (Bld) 1.1 % Normal 0.9-7.0 [facility] Comment on above: Performed By: #### C BC #### [facility] [address] [place] [address] Dr. Ekta Funk Erythrocyte distribution width (RBC) [Ratio] 12.8 % Normal 11.0-15.0 [facility] Comment on above: Performed By: #### C BC #### [facility] [address] [place] [address] Dr. Ekta Funk Hematocrit (Bld) [Volume fraction] 37.1 % Normal 36.0-48.0 [facility] Comment on above: Performed By: #### C BC #### [facility] [address] [place] [address] Dr. Ekta Funk Hemoglobin (Bld) [Mass/Vol] 13.0 g/dL Normal 12.0-16.0 [facility] Comment on above: Performed By: #### C BC #### [facility] [address] [place] [address] Dr. Ekta Funk IG # 0.11 10e3/ul Critically high 0.00-0.03 [facility] Comment on above: Performed By: #### C BC #### [facility] [address] [address] [address] Ekta Funk IG % 1.1 % Critically high 0.0-0.5 [facility] Comment on above: Performed By: #### C BC #### [facility] [address] [place] [address] Dr. Ekta Funk LYMPH # 1.6 103/ul Normal 1.2-3.8 [facility] Comment on above: Performed By: #### C BC #### [facility] [address] [place] [address] Dr. Ekta Funk Lymphocytes/100 WBC (Bld) 15.6 % Critically low 20.5-60.0 [facility] Comment on above: Performed By: #### C BC #### [facility] [address] [place] [address] Dr. Ekta Funk MANUAL DIFF REQ NO Normal [facility] Comment on above: Performed By: #### C BC #### [facility] [address] [place] [address] Dr. Ekta Funk MCH (RBC) [Entitic mass] 32.8 pg Normal 26.7-34.0 [facility] Comment on above: Performed By: #### C BC #### [facility] [address] [place] [address] Dr. Ekta Funk MCHC (RBC) [Mass/Vol] 35.0 g/dL Normal 29.9-35.2 [facility] Comment on above: Performed By: #### C BC #### [facility] [address] [place] [address] Dr. Ekta Funk MCV (RBC) [Entitic vol] 93.7 fL Normal 81.0-99.0 [facility] Comment on above: Performed By: #### C BC #### [facility] [address] [place] [address] Dr. Ekta Funk MONO # 0.9 103/ul Critically high 0.3-0.8 [facility] Comment on above: Performed By: #### C BC #### [facility] [address] [place] [address] Dr. Ekta Funk Monocytes/100 WBC (Bld) 8.3 % Normal 1.7-12.0 [facility] Comment on above: Performed By: #### C BC #### [facility] [address] [place] [address] Dr. Ekta Funk NEUT # 7.5 103/ul Critically high 1.4-6.5 [facility] Comment on above: Performed By: #### C BC #### [facility] [address] [place] [address] Dr. Ekta Funk Neutrophils/100 WBC (Bld) 73.7 % Normal 43.0-75.0 [facility] Comment on above: Performed By: #### C BC #### [facility] [address] [place] [address] Dr. Ekta Funk Platelet mean volume (Bld) [Entitic vol] 10.3 fL Normal 9.5-13.5 [facility] Comment on above: Performed By: #### C BC #### [facility] [address] [place] [address] Dr. Ekta Funk PLT 135 103/ul Critically low 150-450 [facility] Comment on above: Performed By: #### C BC #### [facility] [address] [place], [place] [id number] Dr. Ekta Funk RBC 3.96 106/ul Critically low 4.20-5.40 [facility] Comment on above: Performed By: #### C BC #### [facility] [address] [place] [address] Dr. Ekta Funk WBC 10.2 103/ul Normal 4.0-11.0 [facility] Comment on above: Performed By: #### C BC #### [facility] [address] [place] [address] Dr. Ekta Funk PROF 14(COMP METB)on 023 Albumin [Mass/Vol] 2.7 g/dL Critically low 3.4-5.0 [facility] Comment on above: Performed By: #### B 12FOL, VITAD, IRON #### [facility] [address] [place] [address] Dr. Ekta Funk Albumin/Globulin [Mass ratio] 0.8 {ratio} Normal [facility] Comment on above: Performed By: #### B 12FOL, VITAD, IRON #### [facility] [address] [place] [address] Dr. Ekta Funk ALP [Catalytic activity/Vol] 74 U/L Normal 46-116 [facility] Comment on above: Performed By: #### B 12FOL, VITAD, IRON #### [facility] [address] [place] [address] Dr. Ekta Funk ALT [Catalytic activity/Vol] 26 U/L Normal 14-59 [facility] Comment on above: Performed By: #### B 12FOL, VITAD, IRON #### [facility] [address] [place] [address] Dr. Ekta Funk Anion gap [Moles/Vol] 16.5 mmol/L Normal [facility] Comment on above: Performed By: #### B 12FOL, VITAD, IRON #### [facility] [address] [place] [address] Dr. Ekta Funk AST [Catalytic activity/Vol] 15 U/L Normal 15-37 [facility] Comment on above: Performed By: #### B 12FOL, VITAD, IRON #### [facility] [address] [place] [address] Dr. Ekta Funk Bilirubin [Mass/Vol] 0.4 mg/dL Normal 0.2-1.0 [facility] Comment on above: Performed By: #### B 12FOL, VITAD, IRON #### [facility] [address] [place] [address] Dr. Ekta Funk Calcium [Mass/Vol] 8.1 mg/dL Critically low 8.5-10.1 [facility] Comment on above: Performed By: #### B 12FOL, VITAD, IRON #### [facility] [address] [place] [address] Dr. Ekta Funk Chloride [Moles/Vol] 96 mmol/L Critically low 98-107 [facility] Comment on above: Performed By: #### B 12FOL, VITAD, IRON #### [facility] [address] [place] [address] Dr. Ekta Funk CO2 [Moles/Vol] 26.1 mmol/L Normal 21.0-32.0 [facility] Comment on above: Performed By: #### B 12FOL, VITAD, IRON #### [facility] [address] [place] [address] Dr. Ekta Funk Creatinine [Mass/Vol] 3.28 mg/dL Critically high 0.55-1.02 [facility] Comment on above: Performed By: #### B 12FOL, VITAD, IRON #### [facility] [address] [place] [address] Dr. Ekta Funk EGFR-AF [facility] 17 mL/min/1.73m2 Critically low >=60 [facility] Comment on above: Performed By: #### B 12FOL, VITAD, IRON #### [facility] [address] [place] [address] Dr. Ekta Funk EGFR-NON AF [facility] 14 mL/min/1.73m2 Critically low >=60 [facility] Comment on above: Performed By: #### B 12FOL, VITAD, IRON #### [facility] [address] [place] [address] Dr. Ekta Funk Globulin (S) [Mass/Vol] 3.6 g/dL Normal [facility] Comment on above: Performed By: #### B 12FOL, VITAD, IRON #### [facility] [address] [place] [address] Dr. Ekta Funk Glucose [Mass/Vol] 132 mg/dL Critically high 74-106 T [facility] Comment on above: Performed By: #### B 12FOL, VITAD, IRON #### [facility] [address] [place] [address] Dr. Ekta Funk Potassium [Moles/Vol] 4.6 mmol/L Normal 3.5-5.1 [facility] Comment on above: Performed By: #### B 12FOL, VITAD, IRON #### [facility] [address] [place] [address] Dr. Ekta Funk Protein [Mass/Vol] 6.3 g/dL Critically low 6.4-8.2 [facility] Comment on above: Performed By: #### B 12FOL, VITAD, IRON #### [facility] [address] [place] [address] Dr. Ekta Funk Sodium [Moles/Vol] 134 mmol/L Critically low 136-145 [facility] Comment on above: Performed By: #### B 12FOL, VITAD, IRON #### [facility] [address] [place] [address] Dr. Ekta Funk Urea nitrogen [Mass/Vol] 74.0 mg/dL Critically high 7.0-18.0 [facility] Comment on above: Performed By: #### B 12FOL, VITAD, IRON #### [facility] [address] [place] [address] Dr. Ekta Funk Urea nitrogen/Creatinine [Mass ratio] 22.6 mg/mg Normal [facility] Comment on above: Performed By: #### B 12FOL, VITAD, IRON #### [facility] [address] [place] [address] Dr. Ekta Funk BNPon 10-22-2022 Natriuretic peptide B (Bld) [Mass/Vol] 1411.0 pg/mL Critically high <=900.0 [facility] Comment on above: Performed By: #### B 12FOL, VITAD, IRON #### [facility] [address] [place] [address] Dr. Ekta Funk CBC AUTO DIFFon 10-22-2022 BASO # 0.0 103/ul Normal 0.0-0.1 [facility] Comment on above: Performed By: #### B 12FOL, VITAD, IRON #### [facility] [address] [place] [address] Dr. Ekta Funk Basophils/100 WBC (Bld) 0.3 % Normal 0.2-2.0 [facility] Comment on above: Performed By: #### B 12FOL, VITAD, IRON #### [facility] [address] [place] [address] Dr. Ekta Funk EO # 0.1 103/ul Normal 0.0-0.7 [facility] Comment on above: Performed By: #### B 12FOL, VITAD, IRON #### [facility] [address] [place] [address] Dr. Ekta Funk Eosinophils/100 WBC (Bld) 0.6 % Critically low 0.9-7.0 [facility] Comment on above: Performed By: #### B 12FOL, VITAD, IRON #### [facility] [address] [place] [address] Dr. Ekta Funk Erythrocyte distribution width (RBC) [Ratio] 12.9 % Normal 11.0-15.0 [facility] Comment on above: Performed By: #### B 12FOL, VITAD, IRON #### [facility] [address] [place] [address] Dr. Ekta Funk Hematocrit (Bld) [Volume fraction] 40.8 % Normal 36.0-48.0 [facility] Comment on above: Performed By: #### B 12FOL, VITAD, IRON #### [facility] [address] [place] [address] Dr. Ekta Funk Hemoglobin (Bld) [Mass/Vol] 14.0 g/dL Normal 12.0-16.0 [facility] Comment on above: Performed By: #### B 12FOL, VITAD, IRON #### [facility] [address] [place] [address] Dr. Ekta Funk IG # 0.09 10e3/ul Critically high 0.00-0.03 [facility] Comment on above: Performed By: #### B 12FOL, VITAD, IRON #### [facility] [address] [address] [address] Ekta Funk IG % 0.8 % Critically high 0.0-0.5 [facility] Comment on above: Performed By: #### B 12FOL, VITAD, IRON #### [facility] [address] [place] [address] Dr. Ekta Funk LYMPH # 1.8 103/ul Normal 1.2-3.8 [facility] Comment on above: Performed By: #### B 12FOL, VITAD, IRON #### [facility] [address] [place] [address] Dr. Ekta Funk Lymphocytes/100 WBC (Bld) 16.2 % Critically low 20.5-60.0 [facility] Comment on above: Performed By: #### B 12FOL, VITAD, IRON #### [facility] [address] [place] [address] Dr. Ekta Funk MANUAL DIFF REQ NO Normal [facility] Comment on above: Performed By: #### B 12FOL, VITAD, IRON #### [facility] [address] [place] [address] Dr. Ekta Funk MCH (RBC) [Entitic mass] 32.3 pg Normal 26.7-34.0 [facility] Comment on above: Performed By: #### B 12FOL, VITAD, IRON #### [facility] [address] [place] [address] Dr. Ekta Funk MCHC (RBC) [Mass/Vol] 34.3 g/dL Normal 29.9-35.2 [facility] Comment on above: Performed By: #### B 12FOL, VITAD, IRON #### [facility] [address] [place] [address] Dr. Ekta Funk MCV (RBC) [Entitic vol] 94.2 fL Normal 81.0-99.0 [facility] Comment on above: Performed By: #### B 12FOL, VITAD, IRON #### [facility] [address] [address] [address] Ekta Funk MONO # 0.8 103/ul Normal 0.3-0.8 [facility] Comment on above: Performed By: #### B 12FOL, VITAD, IRON #### [facility] [address] [place] [address] Dr. Ekta Funk Monocytes/100 WBC (Bld) 7.3 % Normal 1.7-12.0 [facility] Comment on above: Performed By: #### B 12FOL, VITAD, IRON #### [facility] [address] [place] [address] Dr. Ekta Funk NEUT # 8.1 103/ul Critically high 1.4-6.5 [facility] Comment on above: Performed By: #### B 12FOL, VITAD, IRON #### [facility] [address] [place] [address] Dr. Ekta Funk Neutrophils/100 WBC (Bld) 74.8 % Normal 43.0-75.0 [facility] Comment on above: Performed By: #### B 12FOL, VITAD, IRON #### [facility] [address] [place] [address] Dr. Ekta Funk Platelet mean volume (Bld) [Entitic vol] 9.8 fL Normal 9.5-13.5 [facility] Comment on above: Performed By: #### B 12FOL, VITAD, IRON #### [facility] [address] [place] [address] Dr. Ekta Funk PLT 226 103/ul Normal 150-450 [facility] Comment on above: Performed By: #### B 12FOL, VITAD, IRON #### [facility] [address] [place] [address] Dr. Ekta Funk RBC 4.33 106/ul Normal 4.20-5.40 [facility] Comment on above: Performed By: #### B 12FOL, VITAD, IRON #### [facility] [address] [place] [address] Dr. Ekta Funk WBC 10.9 103/ul Normal 4.0-11.0 [facility] Comment on above: Performed By: #### B 12FOL, VITAD, IRON #### [facility] [address] [place] [address] Dr. Ekta Funk PROF 14(COMP METB)on 023 Albumin [Mass/Vol] 3.1 g/dL Critically low 3.4-5.0 [facility] Comment on above: Performed By: #### B 12FOL, VITAD, IRON #### [facility] [address] [place] [address] Dr. Ekta Funk Albumin/Globulin [Mass ratio] 0.7 {ratio} Normal [facility] Comment on above: Performed By: #### B 12FOL, VITAD, IRON #### [facility] [address] [place] [address] Dr. Ekta Funk ALP [Catalytic activity/Vol] 81 U/L Normal 46-116 [facility] Comment on above: Performed By: #### B 12FOL, VITAD, IRON #### [facility] [address] [place] [address] Dr. Ekta Funk ALT [Catalytic activity/Vol] 30 U/L Normal 14-59 [facility] Comment on above: Performed By: #### B 12FOL, VITAD, IRON #### [facility] [facility] [address] [place] [address] Dr. Etka Funk Anion gap [Moles/Vol] 17.3 mmol/L Normal [facility] Comment on above: Performed By: #### B 12FOL, VITAD, IRON #### [facility] [address] [place] [address] Dr. Ekta Funk AST [Catalytic activity/Vol] 11 U/L Critically low 15-37 [facility] Comment on above: Performed By: #### B 12FOL, VITAD, IRON #### [facility] [address] [place] [address] Dr. Ekta Funk Bilirubin [Mass/Vol] 0.5 mg/dL Normal 0.2-1.0 [facility] Comment on above: Performed By: #### B 12FOL, VITAD, IRON #### [facility] [address] [place] [address] Dr. Ekta Funk Calcium [Mass/Vol] 8.6 mg/dL Normal 8.5-10.1 [facility] Comment on above: Performed By: #### B 12FOL, VITAD, IRON #### [facility] [address] [address] [address] Ekta Funk Chloride [Moles/Vol] 95 mmol/L Critically low 98-107 [facility] Comment on above: Performed By: #### B 12FOL, VITAD, IRON #### [facility] [address] [place] [address] Dr. Ekta Funk CO2 [Moles/Vol] 27.3 mmol/L Normal 21.0-32.0 [facility] Comment on above: Performed By: #### B 12FOL, VITAD, IRON #### [facility] [address] [place] [address] Dr. Ekta Funk Creatinine [Mass/Vol] 3.17 mg/dL Critically high 0.55-1.02 [facility] Comment on above: Performed By: #### B 12FOL, VITAD, IRON #### [facility] [address] [place] [address] Dr. Ekta Funk EGFR-AF [facility] 17 mL/min/1.73m2 Critically low >=60 [facility] Comment on above: Performed By: #### B 12FOL, VITAD, IRON #### [facility] [address] [place] [address] Dr. Ekta Funk EGFR-NON AF [facility] 14 mL/min/1.73m2 Critically low >=60 [facility] Comment on above: Performed By: #### B 12FOL, VITAD, IRON #### [facility] [address] [place] [address] Dr. Ekta Funk Globulin (S) [Mass/Vol] 4.6 g/dL Normal [facility] Comment on above: Performed By: #### B 12FOL, VITAD, IRON #### [facility] [address] [address] [address] Ekta Funk Glucose [Mass/Vol] 139 mg/dL Critically high 74-106 [facility] Comment on above: Performed By: #### B 12FOL, VITAD, IRON #### [facility] [address] [address] [address] Ekta Funk Potassium [Moles/Vol] 4.6 mmol/L Normal 3.5-5.1 [facility] Comment on above: Performed By: #### B 12FOL, VITAD, IRON #### [facility] [address] [place] [address] Dr. Ekta Funk Protein [Mass/Vol] 7.7 g/dL Normal 6.4-8.2 [facility] Comment on above: Performed By: #### B 12FOL, VITAD, IRON #### [facility] [address] [place] [address] Dr. Ekta Funk Sodium [Moles/Vol] 135 mmol/L Critically low 136-145 [facility] Comment on above: Performed By: #### B 12FOL, VITAD, IRON #### [facility] [address] [place] [address] Dr. Ekta Funk Urea nitrogen [Mass/Vol] 73.0 mg/dL Critically high 7.0-18.0 [facility] Comment on above: Performed By: #### B 12FOL, VITAD, IRON #### [facility] [address] [place] [address] Dr. Ekta Funk Urea nitrogen/Creatinine [Mass ratio] 23.0 mg/mg Normal [facility] Comment on above: Performed By: #### B 12FOL, VITAD, IRON #### [facility] [address] [place] [address] Dr. Ekta Funk BNPon 10-21-2022 Natriuretic peptide B (Bld) [Mass/Vol] 2007.0 pg/mL Critically high <=900.0 [facility] Comment on above: Performed By: #### C MP #### [facility] [address] [address] [address] Ekta Funk CBC AUTO DIFFon 10-21-2022 BASO # 0.0 103/ul Normal 0.0-0.1 [facility] Comment on above: Performed By: #### C BC #### [facility] [address] [address] [address] Ekta Funk Basophils/100 WBC (Bld) 0.2 % Normal 0.2-2.0 [facility] Comment on above: Performed By: #### C BC #### [facility] [address] [place] [address] Dr. Ekta Funk EO # 0.1 103/ul Normal 0.0-0.7 [facility] Comment on above: Performed By: #### C BC #### [facility] [address] [place] [address] Dr. Ekta Funk Eosinophils/100 WBC (Bld) 0.9 % Normal 0.9-7.0 [facility] Comment on above: Performed By: #### C BC #### [facility] [address] [place] [address] Dr. Ekta Funk Erythrocyte distribution width (RBC) [Ratio] 12.8 % Normal 11.0-15.0 [facility] Comment on above: Performed By: #### C BC #### [facility] [address] [place] [address] Dr. Ekta Funk Hematocrit (Bld) [Volume fraction] 38.8 % Normal 36.0-48.0 [facility] Comment on above: Performed By: #### C BC #### [facility] [address] [place] [address] Dr. Ekta Funk Hemoglobin (Bld) [Mass/Vol] 13.3 g/dL Normal 12.0-16.0 [facility] Comment on above: Performed By: #### C BC #### [facility] [address] [place] [address] Dr. Ekta Funk IG # 0.08 10e3/ul Critically high 0.00-0.03 [facility] Comment on above: Performed By: #### C BC #### [facility] [address] [address] [address] Ekta Funk IG % 0.8 % Critically high 0.0-0.5 [facility] Comment on above: Performed By: #### C BC #### [facility] [address] [place] [address] Dr. Ekta Funk LYMPH # 1.7 103/ul Normal 1.2-3.8 [facility] Comment on above: Performed By: #### C BC #### [facility] [address] [place] [address] Dr. Ekta Funk Lymphocytes/100 WBC (Bld) 17.3 % Critically low 20.5-60.0 [facility] Comment on above: Performed By: #### C BC #### [facility] [address] [place] [address] Dr. Ekta Funk MANUAL DIFF REQ NO Normal [facility] Comment on above: Performed By: #### C BC #### [facility] [address] [place] [address] Dr. Ekta Funk MCH (RBC) [Entitic mass] 32.1 pg Normal 26.7-34.0 [facility] Comment on above: Performed By: #### C BC #### [facility] [address] [place] [address] Dr. Ekta Funk MCHC (RBC) [Mass/Vol] 34.3 g/dL Normal 29.9-35.2 [facility] Comment on above: Performed By: #### C BC #### [facility] [address] [place] [address] Dr. Ekta Funk MCV (RBC) [Entitic vol] 93.7 fL Normal 81.0-99.0 [facility] Comment on above: Performed By: #### C BC #### [facility] [address] [place] [address] Dr. Ekta Funk MONO # 0.6 103/ul Normal 0.3-0.8 [facility] Comment on above: Performed By: #### C BC #### [facility] [address] [address] [address] Ekta Funk Monocytes/100 WBC (Bld) 6.4 % Normal 1.7-12.0 [facility] Comment on above: Performed By: #### C BC #### [facility] [address] [address] [address] Ekta Funk NEUT # 7.4 103/ul Critically high 1.4-6.5 [facility] Comment on above: Performed By: #### C BC #### [facility] [address] [address] [address] Ekta Funk Neutrophils/100 WBC (Bld) 74.4 % Normal 43.0-75.0 [facility] Comment on above: Performed By: #### C BC #### [facility] [address] [place] [address] Dr. Ekta Funk Platelet mean volume (Bld) [Entitic vol] 9.8 fL Normal 9.5-13.5 [facility] Comment on above: Performed By: #### C BC #### [facility] [address] [place] [address] Dr. Ekta Funk PLT 193 103/ul Normal 150-450 [facility] Comment on above: Performed By: #### C BC #### [facility] [address] [place] [address] Dr. Ekta Fnuk RBC 4.14 106/ul Critically low 4.20-5.40 [facility] Comment on above: Performed By: #### C BC #### [facility] [address] [place] [address] Dr. Ekta Funk WBC 9.9 103/ul Normal 4.0-11.0 [facility] Comment on above: Performed By: #### C BC #### [facility] [address] [place] [address] Dr. Ekta Funk PROF 14(COMP METB)on 023 Albumin [Mass/Vol] 3.2 g/dL Critically low 3.4-5.0 [facility] Comment on above: Performed By: #### I NSULIN #### [facility] [address] [address] [address] Ekta Funk Albumin/Globulin [Mass ratio] 0.8 {ratio} Normal [facility] Comment on above: Performed By: #### I NSULIN #### [facility] [address] [address] [address] Ekta Funk ALP [Catalytic activity/Vol] 82 U/L Normal 46-116 [facility] Comment on above: Performed By: #### I NSULIN #### [facility] [address] [address] [address] Ekta Funk ALT [Catalytic activity/Vol] 38 U/L Normal 14-59 [facility] Comment on above: Performed By: #### I NSULIN #### [facility] [address] [place] [address] Dr. Ekta Funk Anion gap [Moles/Vol] 19.1 mmol/L Normal [facility] Comment on above: Performed By: #### I NSULIN #### [facility] [address] [place] [address] Dr. Ekta Funk AST [Catalytic activity/Vol] 19 U/L Normal 15-37 [facility] Comment on above: Performed By: #### I NSULIN #### [facility] [address] [place] [address] Dr. Ekta Funk Bilirubin [Mass/Vol] 0.4 mg/dL Normal 0.2-1.0 [facility] Comment on above: Performed By: #### I NSULIN #### [facility] [address] [place] [address] Dr. Ekta Funk Calcium [Mass/Vol] 9.2 mg/dL Normal 8.5-10.1 [facility] Comment on above: Performed By: #### I NSULIN #### [facility] [address] [place] [address] Dr. Ekta Funk Chloride [Moles/Vol] 98 mmol/L Normal 98-107 [facility] Comment on above: Performed By: #### I NSULIN #### [facility] [address] [address] [address] Ekta Funk CO2 [Moles/Vol] 26.4 mmol/L Normal 21.0-32.0 [facility] Comment on above: Performed By: #### I NSULIN #### [facility] [address] [address] [address] Ekta Funk Creatinine [Mass/Vol] 2.20 mg/dL Critically high 0.55-1.02 [facility] Comment on above: Performed By: #### I NSULIN #### [facility] [address] [address] [address] Ekta Funk EGFR-AF [facility] 26 mL/min/1.73m2 Critically low >=60 [facility] Comment on above: Performed By: #### I NSULIN #### [facility] [address] [address] [address] Ekta Funk EGFR-NON AF [facility] 22 mL/min/1.73m2 Critically low >=60 [facility] Comment on above: Performed By: #### I NSULIN #### [facility] [address] [address] [address] Ekta Funk Globulin (S) [Mass/Vol] 3.8 g/dL Normal [facility] Comment on above: Performed By: #### I NSULIN #### [facility] [address] [address] [address] Ekta Funk Glucose [Mass/Vol] 142 mg/dL Critically high 74-106 T [facility] Comment on above: Performed By: #### I NSULIN #### [facility] [address] [address] [address] Ekta Funk Potassium [Moles/Vol] 4.5 mmol/L Normal 3.5-5.1 [facility] Comment on above: Performed By: #### I NSULIN #### [facility] [address] [address] [address] Ekta Funk Protein [Mass/Vol] 7.0 g/dL Normal 6.4-8.2 [facility] Comment on above: Performed By: #### I NSULIN #### [facility] [address] [address] [address] Ekta Funk Sodium [Moles/Vol] 139 mmol/L Normal 136-145 [facility] Comment on above: Performed By: #### I NSULIN #### [facility] [address] [address] [address] Ekta Funk Urea nitrogen [Mass/Vol] 57.0 mg/dL Critically high 7.0-18.0 [facility] Comment on above: Performed By: #### I NSULIN #### [facility] [address] [address] [address] Ekta Funk Urea nitrogen/Creatinine [Mass ratio] 25.9 mg/mg Normal [facility] Comment on above: Performed By: #### I NSULIN #### [facility] [address] [address] [address] Ekta Funk T3, TOTAL (TRIIODOTHYRONINE) on 10-21-2022 T3, TOTAL 63 ng/dL Critically low 71-180 [facility] Comment on above: Performed By: #### C MP #### [facility] [address] [address] [address] Ekta Funk XR ABD FLAT_UPon 10-21-2022 [...] by: VISHNU MARIE Date: 2022-10-21 11:42 Normal [facility] XR CHEST 2 Von 10-21-2022 XR [...] by: CHRISTIANO MORALES Date: 2022-10-21 11:23 Normal [facility] BNPon 10-20-2022 Natriuretic peptide B (Bld) [Mass/Vol] 2512.0 pg/mL Critically high <=900.0 [facility] Comment on above: Performed By: #### B DEVANGLNENOAD, IRON #### [facility] [address] [place] [address] Dr. Ekta Funk CARDIAC BRITTANIE ADMITon 023 CK [Catalytic activity/Vol] 35 U/L Normal 26-192 [facility] Comment on above: Performed By: #### B CAROLYN LAUGHLIN, IRON #### [facility] [address] [place] [address] Dr. Ekta Funk CK.MB [Mass/Vol] 0.64 ng/mL Normal <=3.60 [facility] Comment on above: Performed By: #### B ElviraFOL VITAD, IRON #### [facility] [address] [place] [address] Dr. Ekta Funk HSTROP 28.1 pg/mL Normal 4.0-51.3 [facility] Comment on above: Result Comment: CUT- OFF POINTS HAVE BEEN ESTABLISHED BASED ON THE FOURTH UNIVERSAL DEFINITIONS OF MYOCARDIAL INFARCTION. THE UPPER REFERENCE LIMIT (URL) OF TROPONIN, DEFINED THE 99TH PERCENTILE OF cTnI DISTRIBUTION IN A REFERENCE POPULATION, HAS BEEN CONFIRMED THE DECISION THRESHOLD FOR RI DIAGNOSIS. Performed By: #### B 12FOL VITAD, IRON #### [facility] [address] [place] [address] Dr. Ekta Funk EVELYN 57 ng/mL Normal 9-82 [facility] Comment on above: Performed By: #### B ElviraFOL VITAD, IRON #### [facility] [address] [place] [address] Dr. Ekta Funk CBC AUTO DIFFon 10-20-2022 BASO # 0.0 103/ul Normal 0.0-0.1 [facility] Comment on above: Performed By: #### C BC #### [facility] [address] [address] [address] Ekta Funk Basophils/100 WBC (Bld) 0.2 % Normal 0.2-2.0 [facility] Comment on above: Performed By: #### C BC #### [facility] [address] [address] [address] Ekta Funk EO # 0.2 103/ul Normal 0.0-0.7 [facility] Comment on above: Performed By: #### C BC #### [facility] [address] [address] [address] Ekta Funk Eosinophils/100 WBC (Bld) 1.4 % Normal 0.9-7.0 [facility] Comment on above: Performed By: #### C BC #### [facility] [address] [place] [address] Dr. Ekta Funk Erythrocyte distribution width (RBC) [Ratio] 12.9 % Normal 11.0-15.0 [facility] Comment on above: Performed By: #### C BC #### [facility] [address] [place] [address] Dr. Ekta Funk Hematocrit (Bld) [Volume fraction] 34.7 % Critically low 36.0-48.0 [facility] Comment on above: Performed By: #### C BC #### [facility] [address] [place] [address] Dr. Ekta Funk Hemoglobin (Bld) [Mass/Vol] 11.8 g/dL Critically low 12.0-16.0 [facility] Comment on above: Performed By: #### C BC #### [facility] [address] [address] [address] Ekta Funk IG # 0.09 10e3/ul Critically high 0.00-0.03 [facility] Comment on above: Performed By: #### C BC #### [facility] [address] [address] [address] Ekta Funk IG % 0.8 % Critically high 0.0-0.5 [facility] Comment on above: Performed By: #### C BC #### [facility] [address] [place] [address] Dr. Ekta Funk LYMPH # 1.9 103/ul Normal 1.2-3.8 [facility] Comment on above: Performed By: #### C BC #### [facility] [address] [place] [address] Dr. Ekta Funk Lymphocytes/100 WBC (Bld) 16.1 % Critically low 20.5-60.0 [facility] Comment on above: Performed By: #### C BC #### [facility] [address] [place] [address] Dr. Ekta Funk MANUAL DIFF REQ NO Normal [facility] Comment on above: Performed By: #### C BC #### [facility] [address] [place] [address] Dr. Ekta Funk MCH (RBC) [Entitic mass] 32.6 pg Normal 26.7-34.0 [facility] Comment on above: Performed By: #### C BC #### [facility] [address] [place] [address] Dr. Ekta Funk MCHC (RBC) [Mass/Vol] 34.0 g/dL Normal 29.9-35.2 [facility] Comment on above: Performed By: #### C BC #### [facility] [address] [place] [address] Dr. Ekta Funk MCV (RBC) [Entitic vol] 95.9 fL Normal 81.0-99.0 [facility] Comment on above: Performed By: #### C BC #### [facility] [address] [place] [address] Dr. Ekta Funk MONO # 0.8 103/ul Normal 0.3-0.8 [facility] Comment on above: Performed By: #### C BC #### [facility] [address] [place] [address] Dr. Ekta Funk Monocytes/100 WBC (Bld) 7.0 % Normal 1.7-12.0 [facility] Comment on above: Performed By: #### C BC #### [facility] [address] [place] [address] Dr. Ekta Funk NEUT # 8.8 103/ul Critically high 1.4-6.5 [facility] Comment on above: Performed By: #### C BC #### [facility] [address] [place] [address] Dr. Ekta Funk Neutrophils/100 WBC (Bld) 74.5 % Normal 43.0-75.0 [facility] Comment on above: Performed By: #### C BC #### [facility] [address] [place] [address] Dr. Ekta Funk Platelet mean volume (Bld) [Entitic vol] 9.8 fL Normal 9.5-13.5 [facility] Comment on above: Performed By: #### C BC #### [facility] [address] [place] [address] Dr. Ekta Funk PLT 203 103/ul Normal 150-450 [facility] Comment on above: Performed By: #### C BC #### [facility] [address] [place] [address] Dr. Ekta Funk RBC 3.62 106/ul Critically low 4.20-5.40 [facility] Comment on above: Performed By: #### C BC #### [facility] [address] [place] [address] Dr. Ekta Funk WBC 11.8 103/ul Critically high 4.0-11.0 [facility] Comment on above: Performed By: #### C BC #### [facility] [address] [place] [address] Dr. Ekta Funk CULTURE URINEon 10-20-2022 CULTURE URINE Culture Observations : NO GROWTH. Normal [facility] Comment on above: Performed By: #### I NSULIN #### [facility] [address] [place] [address] Dr. Ekta Funk Covid-19 PCR (CVDTB)on 10-11 SARS-CoV-2 (COVID-19) RNA GANESH+probe Ql (Unsp spec) Not detected Normal NOT DETECTED [facility] Comment on above: Result Comment: When [...] for this test is supported by the [employer] of Health and Human Service's declaration [...] By: #### B 12FOL, VITAD, IRON #### [facility] [address] [address] [address] Ekta Funk ECHOCARDIO M/2D COMPLETEon 0 10-20-2022 ECHOCARDIO M/2D COMPLETE Patient: SHEILA MAC Exam Date: 10/20/2022 : 1950 Gender:F Ordering : DR KRZYSZTOF HARP . Admission #: [id number] Family : Order #: [id number] CLICK HERE TO VIEW EXAM ECHOCARDIOGRAM REPORT [...] Mckay M.D. on 10/20/2022 at 14:57 Normal [facility] PROF 14(COMP METB)on 023 Albumin [Mass/Vol] 2.8 g/dL Critically low 3.4-5.0 [facility] Comment on above: Performed By: #### B 12FOL, VITAD, IRON #### [facility] [address] [address] [address] Ekta Funk Albumin/Globulin [Mass ratio] 0.7 {ratio} Normal [facility] Comment on above: Performed By: #### B 12FOL, VITAD, IRON #### [facility] [address] [address] [address] Ekta Funk ALP [Catalytic activity/Vol] 84 U/L Normal 46-116 [facility] Comment on above: Performed By: #### B 12FOL, VITAD, IRON #### [facility] [address] [address] [address] Ekta Funk ALT [Catalytic activity/Vol] 29 U/L Normal 14-59 [facility] Comment on above: Performed By: #### B 12FOL, VITAD, IRON #### [facility] [address] [address] [address] Ekta Funk Anion gap [Moles/Vol] 15.9 mmol/L Normal [facility] Comment on above: Performed By: #### B 12FOL, VITAD, IRON #### [facility] [address] [address] [address] Ekta Funk AST [Catalytic activity/Vol] 15 U/L Normal 15-37 [facility] Comment on above: Performed By: #### B 12FOL, VITAD, IRON #### [facility] [address] [address] [address] Ekta Funk Bilirubin [Mass/Vol] 0.3 mg/dL Normal 0.2-1.0 [facility] Comment on above: Performed By: #### B 12FOL, VITAD, IRON #### [facility] [address] [place] [address] Dr. Ekta Fukn Calcium [Mass/Vol] 8.9 mg/dL Normal 8.5-10.1 [facility] Comment on above: Performed By: #### B 12FOL, VITAD, IRON #### [facility] [address] [place] [address] Dr. Ekta Funk Chloride [Moles/Vol] 103 mmol/L Normal 98-107 [facility] Comment on above: Performed By: #### B 12FOL, VITAD, IRON #### [facility] [address] [place] [address] Dr. Ekta Funk CO2 [Moles/Vol] 26.3 mmol/L Normal 21.0-32.0 [facility] Comment on above: Performed By: #### B 12FOL, VITAD, IRON #### [facility] [address] [place] [address] Dr. Ekta Funk Creatinine [Mass/Vol] 1.99 mg/dL Critically high 0.55-1.02 [facility] Comment on above: Performed By: #### B 12FOL, VITAD, IRON #### [facility] [address] [place] [address] Dr. Ekta Funk EGFR-AF [facility] 30 mL/min/1.73m2 Critically low >=60 [facility] Comment on above: Performed By: #### B 12FOL, VITAD, IRON #### [facility] [address] [place] [address] Dr. Ekta Funk EGFR-NON AF [facility] 24 mL/min/1.73m2 Critically low >=60 [facility] Comment on above: Performed By: #### B 12FOL, VITAD, IRON #### [facility] [address] [place] [address] Dr. Ekta Funk Globulin (S) [Mass/Vol] 4.1 g/dL Normal [facility] Comment on above: Performed By: #### B 12FOL, VITAD, IRON #### [facility] [address] [address] [address] Ekta Funk Glucose [Mass/Vol] 115 mg/dL Critically high 74-106 [facility] Comment on above: Performed By: #### B 12FOL, VITAD, IRON #### [facility] [address] [place] [address] Dr. Ekta Funk Potassium [Moles/Vol] 5.2 mmol/L Critically high 3.5-5.1 [facility] Comment on above: Performed By: #### B 12FOL, VITAD, IRON #### [facility] [address] [place] [address] Dr. Ekta Funk Protein [Mass/Vol] 6.9 g/dL Normal 6.4-8.2 [facility] Comment on above: Performed By: #### B 12FOL, VITAD, IRON #### [facility] [address] [place] [address] Dr. Ekta Funk Sodium [Moles/Vol] 140 mmol/L Normal 136-145 [facility] Comment on above: Performed By: #### B 12FOL, VITAD, IRON #### [facility] [address] [place] [address] Dr. Ekta Funk Urea nitrogen [Mass/Vol] 45.0 mg/dL Critically high 7.0-18.0 [facility] Comment on above: Performed By: #### B 12FOL, VITAD, IRON #### [facility] [address] [place] [address] Dr. Ekta Funk Urea nitrogen/Creatinine [Mass ratio] 22.6 mg/mg Normal [facility] Comment on above: Performed By: #### B 12FOL, VITAD, IRON #### [facility] [address] [place] [address] Dr. Ekta Funk T4on 10-20-2022 T4 [Mass/Vol] 6.10 ug/dL Normal 4.80-13.90 [facility] Comment on above: Performed By: #### B 12FOL, VITAD, IRON #### [facility] [address] [place] [address] Dr. Ekta Funk TSHon 10-20-2022 TSH 1.336 uIU/mL Normal 0.358-3.740 [facility] Comment on above: Performed By: #### B 12FOL, VITAD, IRON #### [facility] [address] [place] [address] Dr. Ekta Funk UA RANDOM W/MICROSCOPICon BACTERIA TRACE Abnormal NONE SEEN [facility] Comment on above: Performed By: #### B 12FOL, VITAD, IRON #### [facility] [address] [place] [address] Dr. Ekta Funk Bilirubin Ql (U) Negative Normal NEGATIVE [facility] Comment on above: Performed By: #### B 12FOL, VITAD, IRON #### [facility] [address] [place] [address] Dr. Ekta Funk CAST NONE SEEN Normal NONE SEEN [facility] Comment on above: Performed By: #### B 12FOL, VITAD, IRON #### [facility] [address] [place] [address] Dr. Ekta Funk Clarity (U) CLEAR Normal CLEAR [facility] Comment on above: Performed By: #### B 12FOL, VITAD, IRON #### [facility] [address] [place] [address] Dr. Ekta Funk Color (U) LT. YELLOW Normal YELLOW [facility] Comment on above: Performed By: #### B 12FOL, VITAD, IRON #### [facility] [address] [place] [address] Dr. Ekta Funk Crystals LM Nom (Urine sed) NONE SEEN Normal NONE SEEN [facility] Comment on above: Performed By: #### B 12FOL, VITAD, IRON #### [facility] [address] [place] [address] Dr. Ekta Funk Epithelial cells LM Ql (Urine sed) RARE Normal NONE SEEN /RARE [facility] Comment on above: Performed By: #### B 12FOL, VITAD, IRON #### [facility] [address] [address] [address] Ekta Funk Glucose Ql (U) Negative Normal NEGATIVE [facility] Comment on above: Performed By: #### B 12FOL, VITAD, IRON #### [facility] [address] [address] [address] Ekta Funk Hemoglobin Ql (U) Negative Normal NEGATIVE [facility] Comment on above: Performed By: #### B 12FOL, VITAD, IRON #### [facility] [address] [place] [address] Dr. Ekta Funk Ketones Ql (U) Negative Normal NEGATIVE [facility] Comment on above: Performed By: #### B 12FOL, VITAD, IRON #### [facility] [address] [place] [address] Dr. Ekta Funk LEUKOCYTES Negative Normal NEGATIVE [facility] Comment on above: Performed By: #### B 12FOL, VITAD, IRON #### [facility] [address] [place] [address] Dr. Ekta Funk MUCOUS NONE SEEN Normal NONE SEEN [facility] Comment on above: Performed By: #### B 12FOL, VITAD, IRON #### [facility] [address] [address] [address] Ekta Funk Nitrite Ql (U) Negative Normal NEGATIVE [facility] Comment on above: Performed By: #### B 12FOL, VITAD, IRON #### [facility] [address] [address] [address] Ekta Funk pH (U) 6.0 [pH] Normal 5-9 [facility] Comment on above: Performed By: #### B 12FOL, VITAD, IRON #### [facility] [address] [place] [address] Dr. Ekta Funk RBC 0-2 Normal 0-2 [facility] Comment on above: Performed By: #### B 12FOL, VITAD, IRON #### [facility] [address] [place] [address] Dr. Ekta Funk SPEC GRAVITY <=1.005 Abnormal 1.005-<=1.025 [facility] Comment on above: Performed By: #### B 12FOL, VITAD, IRON #### [facility] [address] [place] [address] Dr. Ekta Funk UA PROTEIN Negative Normal NEGATIVE/ TRACE [facility] Comment on above: Performed By: #### B 12FOL, VITAD, IRON #### [facility] [address] [place] [address] Dr. Ekta Funk Urobilinogen Qn (U) 0.2 {Ivan'U}/dL Normal 0.2 - 1. 0 [facility] Comment on above: Performed By: #### B 12FOL, VITAD, IRON #### [facility] [address] [place] [address] Dr. Ekta Funk WBC NONE SEEN Normal NONE SEEN [facility] Comment on above: Performed By: #### B 12FOL, VITAD, IRON #### [facility] [address] [place] [address] Dr. Ekta Funk BNPon 10-19-2022 Natriuretic peptide B (Bld) [Mass/Vol] 1355.0 pg/mL Critically high <=900.0 [facility] Comment on above: Performed By: #### B 12FOL, VITAD, IRON #### [facility] [address] [place] [address] Dr. Ekta Funk INSULINon 10-19-2022 Insulin 12.4 uIU/mL Normal 2.6-24.9 [facility] Comment on above: Performed By: #### I NSULIN #### [facility] [address] [place] [address] Dr. Ekta Funk OCC BLD IMMUNO SCREENon OCCULT BLOOD Positive Abnormal NEGATIVE [facility] Comment on above: Performed By: #### B 12FOL, VITAD, IRON #### [facility] [address] [place] [address] Dr. Ekta Funk PROF CHEM 8 (BAS METB)on Anion gap [Moles/Vol] 15.8 mmol/L Normal [facility] Comment on above: Performed By: #### B 12FOL, VITAD, IRON #### [facility] [address] [place] [address] Dr. Ekta Funk Calcium [Mass/Vol] 8.8 mg/dL Normal 8.5-10.1 [facility] Comment on above: Performed By: #### B 12FOL, VITAD, IRON #### [facility] [address] [place] [address] Dr. Ekta Funk Chloride [Moles/Vol] 107 mmol/L Normal 98-107 [facility] Comment on above: Performed By: #### B 12FOL, VITAD, IRON #### [facility] [address] [place] [address] Dr. Ekta Funk CO2 [Moles/Vol] 21.5 mmol/L Normal 21.0-32.0 [facility] Comment on above: Performed By: #### B 12FOL, VITAD, IRON #### [facility] [address] [place] [address] Dr. Ekta Funk Creatinine [Mass/Vol] 1.62 mg/dL Critically high 0.55-1.02 [facility] Comment on above: Performed By: #### B 12FOL, VITAD, IRON #### [facility] [address] [place] [address] Dr. Ekta Funk EGFR-AF [facility] 38 mL/min/1.73m2 Critically low >=60 [facility] Comment on above: Performed By: #### B 12FOL, VITAD, IRON #### [facility] [address] [place] [address] Dr. Ekta Funk EGFR-NON AF [facility] 31 mL/min/1.73m2 Critically low >=60 [facility] Comment on above: Performed By: #### B 12FOL, VITAD, IRON #### [facility] [address] [place] [address] Dr. kEta Funk Glucose [Mass/Vol] 134 mg/dL Critically high 74-106 [facility] Comment on above: Performed By: #### B 12FOL, VITAD, IRON #### [facility] [address] [address] [address] Ekta Funk Potassium [Moles/Vol] 5.3 mmol/L Critically high 3.5-5.1 [facility] Comment on above: Performed By: #### B 12FOL, VITAD, IRON #### [facility] [address] [place] [address] Dr. Ekta Funk Sodium [Moles/Vol] 139 mmol/L Normal 136-145 [facility] Comment on above: Performed By: #### B 12FOL, VITAD, IRON #### [facility] [address] [address] [address] Ekta Funk Urea nitrogen [Mass/Vol] 37.0 mg/dL Critically high 7.0-18.0 [facility] Comment on above: Performed By: #### B 12FOL, VITAD, IRON #### [facility] [address] [address] [address] Ekta Funk Urea nitrogen/Creatinine [Mass ratio] 22.8 mg/mg Normal [facility] Comment on above: Performed By: #### B 12FOL, VITAD, IRON #### [facility] [address] [place] [address] Dr. Ekta Funk TROPONIN, HIGH SENSITIVITYon 10-19-2022 HSTROP 53.2 pg/mL Critically high 4.0-51.3 [facility] Comment on above: Result Comment: CUT- OFF POINTS HAVE BEEN ESTABLISHED BASED ON THE FOURTH UNIVERSAL DEFINITIONS OF MYOCARDIAL INFARCTION. THE UPPER REFERENCE LIMIT (URL) OF TROPONIN, DEFINED THE 99TH PERCENTILE OF cTnI DISTRIBUTION IN A REFERENCE POPULATION, HAS BEEN CONFIRMED THE DECISION THRESHOLD FOR RI DIAGNOSIS. Performed By: #### B 12FOL, VITAD, IRON #### [facility] [address] [place] [address] Dr. Ekta Funk BNPon 10-18-2022 Natriuretic peptide B (Bld) [Mass/Vol] 1386.0 pg/mL Critically high <=900.0 [facility] Comment on above: Performed By: #### C VDTBH #### [facility] [address] [place] [address] Dr. Ekta Funk CARDIAC BRITTANIE ADMITon 023 CK [Catalytic activity/Vol] 34 U/L Normal 26-192 [facility] Comment on above: Performed By: #### C VDTBH #### [facility] [address] [place] [address] Dr. Ekta Funk CK.MB [Mass/Vol] 1.43 ng/mL Normal <=3.60 [facility] Comment on above: Performed By: #### C VDTBH #### [facility] [address] [place] [address] Dr. Ekta Funk HSTROP 74.1 pg/mL Critically high 4.0-51.3 [facility] Comment on above: Result Comment: CUT- OFF POINTS HAVE BEEN ESTABLISHED BASED ON THE FOURTH UNIVERSAL DEFINITIONS OF MYOCARDIAL INFARCTION. THE UPPER REFERENCE LIMIT (URL) OF TROPONIN, DEFINED THE 99TH PERCENTILE OF cTnI DISTRIBUTION IN A REFERENCE POPULATION, HAS BEEN CONFIRMED THE DECISION THRESHOLD FOR RI DIAGNOSIS. Performed By: #### C VDTBH #### [facility] [address] [place] [address] Dr. Ekta Funk EVELYN 52 ng/mL Normal 9-82 [facility] Comment on above: Performed By: #### C VDTBH #### [facility] [address] [place] [address] Dr. Ekta Funk CBC AUTO DIFFon 10-18-2022 BASO # 0.0 103/ul Normal 0.0-0.1 [facility] Comment on above: Performed By: #### C BC #### [facility] [address] [place] [address] Dr. Ekta Funk Basophils/100 WBC (Bld) 0.3 % Normal 0.2-2.0 [facility] Comment on above: Performed By: #### C BC #### [facility] [address] [place] [address] Dr. Ekta Funk EO # 0.1 103/ul Normal 0.0-0.7 [facility] Comment on above: Performed By: #### C BC #### [facility] [address] [place] [address] Dr. Ekta Funk Eosinophils/100 WBC (Bld) 0.9 % Normal 0.9-7.0 [facility] Comment on above: Performed By: #### C BC #### [facility] [address] [place] [address] Dr. Ekta Funk Erythrocyte distribution width (RBC) [Ratio] 13.2 % Normal 11.0-15.0 [facility] Comment on above: Performed By: #### C BC #### [facility] [address] [place] [address] Dr. Ekta Funk Hematocrit (Bld) [Volume fraction] 38.9 % Normal 36.0-48.0 [facility] Comment on above: Performed By: #### C BC #### [facility] [address] [place] [address] Dr. Ekta Funk Hemoglobin (Bld) [Mass/Vol] 12.4 g/dL Normal 12.0-16.0 [facility] Comment on above: Performed By: #### C BC #### [facility] [address] [place] [address] Dr. Ekta Funk IG # 0.08 10e3/ul Critically high 0.00-0.03 [facility] Comment on above: Performed By: #### C BC #### [facility] [address] [place] [address] Dr. Ekta Funk IG % 0.5 % Normal 0.0-0.5 [facility] Comment on above: Performed By: #### C BC #### [facility] [address] [place] [address] Dr. Ekta Funk LYMPH # 1.4 103/ul Normal 1.2-3.8 [facility] Comment on above: Performed By: #### C BC #### [facility] [address] [place] [address] Dr. Ekta Funk Lymphocytes/100 WBC (Bld) 9.6 % Critically low 20.5-60.0 [facility] Comment on above: Performed By: #### C BC #### [facility] [address] [place] [address] Dr. Ekta Funk MANUAL DIFF REQ NO Normal [facility] Comment on above: Performed By: #### C BC #### [facility] [address] [place] [address] Dr. Ekta Funk MCH (RBC) [Entitic mass] 32.3 pg Normal 26.7-34.0 [facility] Comment on above: Performed By: #### C BC #### [facility] [address] [place] [address] Dr. Ekta Funk MCHC (RBC) [Mass/Vol] 31.9 g/dL Normal 29.9-35.2 [facility] Comment on above: Performed By: #### C BC #### [facility] [address] [place] [address] Dr. Ekta Funk MCV (RBC) [Entitic vol] 101.3 fL Critically high 81.0-99.0 [facility] Comment on above: Performed By: #### C BC #### [facility] [address] [place] [address] Dr. Ekta Funk MONO # 0.9 103/ul Critically high 0.3-0.8 [facility] Comment on above: Performed By: #### C BC #### [facility] [address] [place] [address] Dr. Ekta Funk Monocytes/100 WBC (Bld) 6.3 % Normal 1.7-12.0 [facility] Comment on above: Performed By: #### C BC #### [facility] [address] [place] [address] Dr. Ekta Funk NEUT # 12.0 103/ul Critically high 1.4-6.5 [facility] Comment on above: Performed By: #### C BC #### [facility] [address] [place] [address] Dr. Ekta Funk Neutrophils/100 WBC (Bld) 82.4 % Critically high 43.0-75.0 [facility] Comment on above: Performed By: #### C BC #### [facility] [address] [address] [address] Ekta Funk Platelet mean volume (Bld) [Entitic vol] 9.7 fL Normal 9.5-13.5 [facility] Comment on above: Performed By: #### C BC #### [facility] [address] [address] [address] Ekta Funk PLT 176 103/ul Normal 150-450 [facility] Comment on above: Performed By: #### C BC #### [facility] [address] [address] [address] Ekta Funk RBC 3.84 106/ul Critically low 4.20-5.40 [facility] Comment on above: Performed By: #### C BC #### [facility] [address] [address] [address] Ekta Funk WBC 14.6 103/ul Critically high 4.0-11.0 [facility] Comment on above: Performed By: #### C BC #### [facility] [address] [address] [address] Ekta Funk FREE THYROXINE INDEX T7on FTI 2.34 Normal 1.30-4.50 [facility] Comment on above: Performed By: #### C VDTBH #### [facility] [address] [place] [address] Dr. Ekta Funk T3U 36.0 % Normal 30.0-39.0 [facility] Comment on above: Performed By: #### C VDTBH #### [facility] [address] [address] [address] Ekta Funk T4 [Mass/Vol] 6.50 ug/dL Normal 4.80-13.[address] [facility] Comment on above: Performed By: #### C VDTBH #### [facility] [address] [place] [address] Dr. Ekta Funk GLYCOHEMOGLOBIN A1Con 2022 ADA RECOMMENDATION SEE BELOW Normal [facility] Comment on above: Result Comment: ADA RECOMMENDED LIMIT 4.0 - 6.0 ADA THERAPEUTIC TARGET < 7.0 ACTION SUGGESTED > 7.0 Performed By: #### B 12FOL, VITAD, IRON #### [facility] [address] [address] [address] Ekta Funk Glucose [Mass/Vol] 140 mg/dL Normal [facility] Comment on above: Performed By: #### B 12FOL, VITAD, IRON #### [facility] [address] [address] [address] Ekta Funk HbA1c (Bld) [Mass fraction] 6.5 % Critically high 4.5-6.2 [facility] Comment on above: Performed By: #### B 12FOL, VITAD, IRON #### [facility] [address] [place] [address] Dr. Ekta Funk IRONon 10-18-2022 Iron [Mass/Vol] 62.0 ug/dL Normal 50.0-170.0 [facility] Comment on above: Performed By: #### B 12FOL, VITAD, IRON #### [facility] [address] [place] [address] Dr. Ekta Funk LIPID PROFILEon 10-18-2022 CHOL-HDL RATIO NORM SEE BELOW Normal [facility] Comment on above: Result Comment: 3.3 - 4.4 LOW RISK 4.4 - 7.1 AVERAGE RISK 7.1 - 11.0 MODERATE RISK >11.0 HIGH RISK Performed By: #### C VDTBH #### [facility] [address] [place] [address] Dr. Ekta Funk Cholesterol [Mass/Vol] 242 mg/dL Critically high <=200 [facility] Comment on above: Performed By: #### C VDTBH #### [facility] [address] [address] [address] Ekta Funk Cholesterol in HDL [Mass/Vol] 74 mg/dL Critically high 40-60 [facility] Comment on above: Performed By: #### C VDTBH #### [facility] [address] [place] [address] Dr. Ekta Funk Cholesterol in LDL [Mass/Vol] 139.4 mg/dL Normal [facility] Comment on above: Performed By: #### C VDTBH #### [facility] [address] [address] [address] Ekta Funk Cholesterol.total/Ch olesterol in HDL [Mass ratio] 3.3 {ratio} Normal [facility] Comment on above: Performed By: #### C VDTBH #### [facility] [address] [address] [address] Ekta Funk HDL NORMAL > or = 60 mg/dl - LO W CARDIOVASCULAR RISK <40 mg/dl - HIGH CARDIOVASCULAR RISK Normal [facility] Comment on above: Performed By: #### C VDTBH #### [facility] [address] [address] [address] Ekta Funk LDL CALC NORMAL SEE BELOW Normal [facility] Comment on above: Result Comment: <100 mg/dl OPTIMAL 100 - 129 mg/dl NEAR OR ABOVE OPTIMAL 130 - 159 mg/dl BORDERLINE HIGH 160 - 189 mg/dl HIGH >190 mg/dl VERY HIGH Performed By: #### C VDTBH #### [facility] [address] [address] [address] Ekta Funk Triglyceride [Mass/Vol] 143 mg/dL Normal <=150 [facility] Comment on above: Performed By: #### C VDTBH #### [facility] [address] [address] [address] Ekta Funk VLDL CALC 28.6 mg/dL Normal [facility] Comment on above: Performed By: #### C VDTBH #### [facility] [address] [address] [address] Ekta Funk PROF 14(COMP METB)on 023 Albumin [Mass/Vol] 2.8 g/dL Critically low 3.4-5.0 [facility] Comment on above: Performed By: #### C VDTBH #### [facility] [address] [place] [address] Dr. Ekta Funk Albumin/Globulin [Mass ratio] 0.7 {ratio} Normal [facility] Comment on above: Performed By: #### C VDTBH #### [facility] [address] [address] [address] Ekta Funk ALP [Catalytic activity/Vol] 90 U/L Normal 46-116 [facility] Comment on above: Performed By: #### C VDTBH #### [facility] [address] [address] [address] Ekta Funk ALT [Catalytic activity/Vol] 26 U/L Normal 14-59 [facility] Comment on above: Performed By: #### C VDTBH #### [facility] [address] [address] [address] Ekta Funk Anion gap [Moles/Vol] 14.5 mmol/L Normal [facility] Comment on above: Performed By: #### C VDTBH #### [facility] [address] [place] [address] Dr. Ekta Funk AST [Catalytic activity/Vol] 14 U/L Critically low 15-37 [facility] Comment on above: Performed By: #### C VDTBH #### [facility] [address] [address] [address] Ekta Funk Bilirubin [Mass/Vol] 0.4 mg/dL Normal 0.2-1.0 [facility] Comment on above: Performed By: #### C VDTBH #### [facility] [address] [place] [address] Dr. Ekta Funk Calcium [Mass/Vol] 8.9 mg/dL Normal 8.5-10.1 [facility] Comment on above: Performed By: #### C VDTBH #### [facility] [address] [address] [address] Ekta Funk Chloride [Moles/Vol] 106 mmol/L Normal 98-107 [facility] Comment on above: Performed By: #### C VDTBH #### [facility] [address] [address] [address] Ekta Funk CO2 [Moles/Vol] 23.5 mmol/L Normal 21.0-32.0 [facility] Comment on above: Performed By: #### C VDTBH #### [facility] [address] [address] [address] Ekta Funk Creatinine [Mass/Vol] 1.70 mg/dL Critically high 0.55-1.02 [facility] Comment on above: Performed By: #### C VDTBH #### [facility] [address] [address] [address] Ekta Funk EGFR-AF [facility] 36 mL/min/1.73m2 Critically low >=60 [facility] Comment on above: Performed By: #### C VDTBH #### [facility] [address] [address] [address] Ekta Funk EGFR-NON AF [facility] 29 mL/min/1.73m2 Critically low >=60 [facility] Comment on above: Performed By: #### C VDTBH #### [facility] [address] [place] [address] Dr. Ekta Funk Globulin (S) [Mass/Vol] 4.0 g/dL Normal [facility] Comment on above: Performed By: #### C VDTBH #### [facility] [address] [address] [address] Ekta Funk Glucose [Mass/Vol] 99 mg/dL Normal 74-106 [facility] Comment on above: Performed By: #### C VDTBH #### [facility] [address] [place] [address] Dr. Ekta Funk Potassium [Moles/Vol] 5.0 mmol/L Normal 3.5-5.1 [facility] Comment on above: Performed By: #### C VDTBH #### [facility] [address] [address] [address] Ekta Funk Protein [Mass/Vol] 6.8 g/dL Normal 6.4-8.2 [facility] Comment on above: Performed By: #### C VDTBH #### [facility] [address] [address] [address] Ekta Funk Sodium [Moles/Vol] 139 mmol/L Normal 136-145 [facility] Comment on above: Performed By: #### C VDTBH #### [facility] [address] [address] [address] Ekta Funk Urea nitrogen [Mass/Vol] 36.0 mg/dL Critically high 7.0-18.0 [facility] Comment on above: Performed By: #### C VDTB #### [facility] [address] [place] [address] Dr. Ekta Funk Urea nitrogen/Creatinine [Mass ratio] 21.2 mg/mg Normal [facility] Comment on above: Performed By: #### C VDTBH #### [facility] [address] [place] [address] Dr. Ekta Funk TSHon 10-18-2022 TSH 0.910 uIU/mL Normal 0.358-3.[address] [facility] Comment on above: Performed By: #### C VDTBH #### [facility] [address] [place] [address] Dr. Ekta Funk Covid-19 PCR ([facility])on 09-10 SARS-CoV-2 (COVID-19) RNA GANESH+probe Ql (Unsp spec) Detected Abnormal NOT DETECTED [facility] Comment on above: Result Comment: This test is not yet approved or cleared by the [place] FDA. When there are no FDA-approved or cleared tests available, and other criteria are met, FDA can make tests available under an emergency access mechanism called an Emergency Use Authorization (EUA). The EUA for this test is supported by the Dry Kiln Operator Helper of Health and Human Service's declaration [...] be used). Performed By: #### C #### [facility] [address] [place] [address] Dr. Ekta Funk INFLUENZA A AND B AGon 09-25 INFLUANEGH SEE BELOW Normal [facility] Comment on above: Result Comment: Nega tive for Flu A protein angiten. Infection due to Flu A cannot be ruled out. Flu A angiten in the sample may be below the detection limit of the test. Performed By: #### B 12FOL, VITAD, IRON #### [facility] [address] [address] [address] Ekta Funk INFLUEG SEE BELOW Normal [facility] Comment on above: Result Comment: Nega tive for Flu B protein antigen. Infection due to Flu B cannot be ruled out. Flu B antigen in the sample may be below the detection limit of the test. Performed By: #### B 12FOL, VITAD, IRON #### [facility] [address] [address] [address] Ekta Funk INFLUENZA A AG Negative Normal NEGATIVE SEE COMMENT [facility] Comment on above: Performed By: #### B 12FOL, VITAD, IRON #### [facility] [address] [address] [address] Ekta Funk INFLUENZA B AG Negative Normal NEGATIVE SEE COMMENT [facility] Comment on above: Performed By: #### B 12FOL, VITAD, IRON #### [facility] [address] [address] [address] Ekta Funk US CAROTID ART BILon 05-26- 022 US CAROTID ART ANGELIQUE EXAMINATION: US [...] by: GODWIN BECK Date: 2022-05-26 16:06 Normal [facility] MRI BRAIN WO CONon 2 MRI [...] by: VISHNU MARIE Date: 2022-05-25 10:45 Normal [facility] ECHOCARDIO M/2D COMPLETEon 0 05-24-2022 ECHOCARDIO M/2D COMPLETE Patient: SHEILA MAC Exam Date: 05/24/2022 : 1950 Gender:F Ordering : DR KRZYSZTOF HARP . Admission #: [id number] Family : Order #: [id number] CLICK HERE TO VIEW EXAM ECHOCARDIOGRAM REPORT [...] M.D. on 05/24/2022 at 14:45 Normal [facility] BASIC METABOLIC PANELon 03- Calcium mass conc 9.4 mg/dL Normal 8.6-10.3 [facility] Comment on above: Order Comment: No: D o not add to previous draw Performed By: #### 0 0071 #### [facility] [address] [place] [address], [place] Chloride molar conc 108 mmol/L High 98-107 The [facility] Comment on above: Order Comment: No: D o not add to previous draw Performed By: #### 0 0071 #### [facility] [address] [place] [address], [place] CO2 molar conc 22 mmol/L Normal 21-31 The [facility] Comment on above: Order Comment: No: D o not add to previous draw Performed By: #### 0 0071 #### [facility] [address] [place] [address], [place] Creatinine mass conc 1.18 mg/dL Normal 0.60-1.20 [facility] Comment on above: Order Comment: No: D o not add to previous draw Performed By: #### 0 0071 #### [facility] [address] [place] [address], [place] GFR/1.73 sq M predicted among blacks MDRD vol rate/area (S/P/Bld) 55 ml/min/1.73sq m Abnormal >60 The [facility] Comment on above: Order Comment: No: D o not add to previous draw Performed By: #### 0 0071 #### [facility] [address] [place] [address], [place] GFR/1.73 sq M predicted among non-blacks MDRD vol rate/area (S/P/Bld) 45 ml/min/1.73sq m Abnormal >60 [facility] Comment on above: Order Comment: No: D o not add to previous draw Performed By: #### 0 0071 #### [facility] [address] [place] [address], [facility] Glucose mass conc 166 mg/dL High 70-100 [facility] Comment on above: Order Comment: No: D o not add to previous draw Performed By: #### 0 0071 #### [facility] [address] [place] [address], [facility] Potassium molar conc 4.1 mmol/L Normal 3.5-5.1 [facility] Comment on above: Order Comment: No: D o not add to previous draw Performed By: #### 0 0071 #### [facility] [address] [place] [address], [facility] Sodium molar conc 140 mmol/L Normal 136-145 [facility] Comment on above: Order Comment: No: D o not add to previous draw Performed By: #### 0 0071 #### [facility] [address] [place] [address], [facility] Urea nitrogen mass conc 21 mg/dL Normal 7-25 [facility] Comment on above: Order Comment: No: D o not add to previous draw Performed By: #### 0 0071 #### [facility] [address] [place] [id number], [facility] CBC COMPLETE BLOOD COUNTon 0 - Erythrocyte distribution width Ratio (RBC) 12.9 % Normal 11.5-15.0 [facility] Comment on above: Order Comment: No: D o not add to previous draw Performed By: #### 5 [id number] #### [facility] [address] [place] [address], [facility] Hematocrit Volume Fraction (Bld) 36.7 % Normal 36.0-45.0 [facility] Comment on above: Order Comment: No: D o not add to previous draw Performed By: #### 5 [id number] #### [facility] [address] Hemoglobin mass conc (Bld) 12.4 g/dL Normal 12.0-15.0 [facility] Comment on above: Order Comment: No: D o not add to previous draw Performed By: #### 5 [id number] #### [facility] [address] [place] [address], [facility] MCH Entitic mass (RBC) 31.2 pg Normal 27.0-33.0 [facility] Comment on above: Order Comment: No: D o not add to previous draw Performed By: #### 5 [id number] #### [facility] [address] MCHC mass conc (RBC) 33.8 g/dL Normal 32.0-35.0 [facility] Comment on above: Order Comment: No: D o not add to previous draw Performed By: #### 5 [id number] #### [facility] [address] [facility] MCV Entitic volume (RBC) 92.4 fL Normal 82.0-98.0 [facility] Comment on above: Order Comment: No: D o not add to previous draw Performed By: #### 5 [id number] #### [facility] [address] [facility] [address], [facility] Nucleated RBC/100 WBC Ratio (Bld) 0 % Normal 0-0 [facility] Comment on above: Order Comment: No: D o not add to previous draw Performed By: #### 5 [id number] #### [facility] [address] [facility] [address], [facility] PLAT CNT 227 10*3/uL Normal 150-400 [facility] Comment on above: Order Comment: No: D o not add to previous draw Performed By: #### 5 [id number] #### [facility] [address] [place] [address], [facility] RBC #/vol (Bld) 3.97 10*6/uL Normal 3.80-5.00 [facility] Comment on above: Order Comment: No: D o not add to previous draw Performed By: #### 5 [id number] #### [facility] [address] WBC #/vol (Bld) 5.55 10*3/uL Normal 4.00-10.60 [facility] Comment on above: Order Comment: No: D o not add to previous draw Performed By: #### 5 [id number] #### [facility] [address] [facility]. [address] Cardiovascular Lab Reporton 11-20-2018 Cardiovascular Lab Report [facility] Patient Name: Bubba [facility] Sheila MR #: [id number] Department of Physician: Bong Gaspar M.D. Division of Service Date: 11/20/2018 Cardiology Birthdate: 1950 Adult Cardiovascular Room #: [id number] [address] Cardiovascular Laboratory Report INDICATION: The patient is a 68-year-old woman who was evaluated in Cardiology Clinic because of new onset symptoms of shortness of breath on mild exertion. Her stress test showed evidence of yjopa-kl-[id number] area of inferoapical ischemia; because of that, she was referred for cardiac catheterization. PROCEDURES: 1. Right heart catheterization. 2. Bilateral selective coronary angiography. 3. Limited right femoral angiography. METHOD: Procedure was explained patient with risks and benefits. She signed informed consent. She was brought to laborer drying department in a fasting state. The right groin area was prepped and draped in usual fashion. Using micropuncture technique, the right common femoral artery was accessed. The inner cannula was advanced. Limited femoral angiography was performed followed by upsizing to a 6-Angolan x 11 cm sheath. Access was also obtained using the same technique in the right common femoral vein and a 6-Angolan x 11 cm sheath was placed. A 6-Angolan Michel catheter was used for right heart catheterization with measurement of pressures and calculation of cardiac output using the estimated Ivory method. Michel catheter was removed. Bilateral selective coronary angiography was then performed using 6-Angolan JL4 and JR4 diagnostic catheters. Catheters were [...] Gaspar M.D. Date Trans: 11/20/2018 09:31 Cyndy/alvina [id number] cc: Krzysztof Harp M.D. [address] [facility] [id number] Normal The [facility] BASIC METABOLIC PANELon 11-08 Calcium mass conc 9.5 mg/dL Normal 8.6-10.3 The [facility] Comment on above: Order Comment: No: D o not add to previous draw Performed By: #### 0 0071 #### [facility] [address] [place] [address], [place] Chloride molar conc 105 mmol/L Normal 98-107 The [facility] Comment on above: Order Comment: No: D o not add to previous draw Performed By: #### 0 0071 #### [facility] [address] [place] [address], [place] CO2 molar conc 24 mmol/L Normal 21-31 The [facility] Comment on above: Order Comment: No: D o not add to previous draw Performed By: #### 0 0071 #### [facility] [address] [place] [address], [place] Creatinine mass conc 1.42 mg/dL High 0.60-1.20 [facility] Comment on above: Order Comment: No: D o not add to previous draw Performed By: #### 0 0071 #### [facility] [address] [place] [address], [place] GFR/1.73 sq M predicted among blacks MDRD vol rate/area (S/P/Bld) 45 ml/min/1.73sq m Abnormal >60 The [facility] Comment on above: Order Comment: No: D o not add to previous draw Performed By: #### 0 0071 #### [facility] [address] [place] [address], [place] GFR/1.73 sq M predicted among non-blacks MDRD vol rate/area (S/P/Bld) 36 ml/min/1.73sq m Abnormal >60 The [facility] Comment on above: Order Comment: No: D o not add to previous draw Performed By: #### 0 0071 #### [facility] [address] [place] [address], [facility] Glucose mass conc 86 mg/dL Normal 70-100 The [facility] Comment on above: Order Comment: No: D o not add to previous draw Performed By: #### 0 0071 #### [facility] [address] [place] [address], [facility] Potassium molar conc 4.2 mmol/L Normal 3.5-5.1 [facility] Comment on above: Order Comment: No: D o not add to previous draw Performed By: #### 0 0071 #### [facility] [address] [place] [address], [facility] Sodium molar conc 138 mmol/L Normal 136-145 The [facility] Comment on above: Order Comment: No: D o not add to previous draw Performed By: #### 0 0071 #### [facility] [address] [place] [address], [facility] Urea nitrogen mass conc 19 mg/dL Normal 7-25 The [facility] Comment on above: Order Comment: No: D o not add to previous draw Performed By: #### 0 0071 #### [facility] [address] [place] [address], [facility] CBC COMPLETE BLOOD COUNTon 0 - Erythrocyte distribution width Ratio (RBC) 13.0 % Normal 11.5-15.0 [facility] Comment on above: Order Comment: No: D o not add to previous draw Performed By: #### 5 [id number] #### [facility] [address] [place] [address], [facility] Hematocrit Volume Fraction (Bld) 38.3 % Normal 36.0-45.0 [facility] Comment on above: Order Comment: No: D o not add to previous draw Performed By: #### 5 [id number] #### [facility] [address] [place] [address], [facility] Hemoglobin mass conc (Bld) 12.6 g/dL Normal 12.0-15.0 [facility] Comment on above: Order Comment: No: D o not add to previous draw Performed By: #### 5 [id number] #### [facility] [address] [facility] MCH Entitic mass (RBC) 31.1 pg Normal 27.0-33.0 [facility] Comment on above: Order Comment: No: D o not add to previous draw Performed By: #### 5 [id number] #### [facility] [address] MCHC mass conc (RBC) 32.9 g/dL Normal 32.0-35.0 [facility] Comment on above: Order Comment: No: D o not add to previous draw Performed By: #### 5 [id number] #### [facility] [address] MCV Entitic volume (RBC) 94.6 fL Normal 82.0-98.0 [facility] Comment on above: Order Comment: No: D o not add to previous draw Performed By: #### 5 [id number] #### [facility] [address] Nucleated RBC/100 WBC Ratio (Bld) 0 % Normal 0-0 [facility] Comment on above: Order Comment: No: D o not add to previous draw Performed By: #### 5 [id number] #### [facility] [address] PLAT CNT 266 10*3/uL Normal 150-400 The [facility] Comment on above: Order Comment: No: D o not add to previous draw Performed By: #### 5 [id number] #### [facility] [address] RBC #/vol (Bld) 4.05 10*6/uL Normal 3.80-5.00 The [facility] Comment on above: Order Comment: No: D o not add to previous draw Performed By: #### 5 [id number] #### [facility] [address] [place] [address], [facility] WBC #/vol (Bld) 9.01 10*3/uL Normal 4.00-10.60 [facility] Comment on above: Order Comment: No: D o not add to previous draw Performed By: #### 5 [id number] #### [facility] [address] [facility] PROTHROMBIN TIMEon 9 INR Coag RelTime (PPP) 1.07 {INR} Normal 0.91-1.16 [facility] Comment [...] 1995;108:231S-246S. Performed By: #### 5 6101 #### [facility] [address] [facility] Prothrombin time (PT) Coag time (PPP) 13.9 s Normal 12.3-14.8 The [facility] Comment on above: Order Comment: No: D o not add to previous draw Result Comment: ALL RESULTS MUST BE INTERPRETED WITH RESPECT TO BLOOD DRAWING ARTIFACT OR DILUTION ERROR OF ANTICOAGULANT AT THE TIME OF SAMPLING. Performed By: #### 5 [id number] #### [facility] [address] Vital Signs Date Time Vital Sign Value Performing Clinician Joel mcclellan 03-26-2024 11:35-0400 Diastolic blood pressure 106 mm[Hg] MD Krzysztof Harp Work Phone: [facility] 03-26-2024 11:35-0400 Heart rate 76 /min MD Krzysztof Harp Work Phone: [facility] 03-26-2024 11:35-0400 Respiratory rate 18 /min MD Krzysztof Harp Work Phone: [facility] 03-26-2024 11:35-0400 SaO2% (BldA) [Mass fraction] 96 % MD Krzysztof Harp Work Phone: [facility] 03-26-2024 11:35-0400 Systolic blood pressure 152 mm[Hg] MD Krzysztof Harp Work Phone: [facility] 03-26-2024 10:24-0400 Body height 157.48 cm MD Krzysztof Harp Work Phone: [facility] 03-26-2024 10:24-0400 Body weight 62.14 kg MD Krzysztof Harp Work Phone: [facility] 02-19-2024 09:07-0400 Body height 157.48 cm MD Krzysztof Harp Work Phone: [facility] 02-19-2024 09:07-0400 Body mass index (BMI) [Ratio] 24.7 kg/m2 MD Krzysztof Harp Work Phone: [facility] 02-19-2024 09:07-0400 Body weight 61.23 kg MD Krzysztof Harp Work Phone: [facility] 02-19-2024 09:07-0400 Diastolic blood pressure 105 mm[Hg] MD Krzysztof Harp Work Phone: [facility] 02-19-2024 09:07-0400 Heart rate 60 /min MD Krzysztof Harp Work Phone: [facility] 02-19-2024 09:07-0400 Systolic blood pressure 146 mm[Hg] MD Krzysztof Harp Work Phone: [facility] 02-05-2024 13:37-0400 Diastolic blood pressure 47 mm[Hg] MD Krzysztof Harp Work Phone: [facility] 02-05-2024 13:37-0400 Heart rate 78 /min MD Krzysztof Harp Work Phone: [facility] 02-05-2024 13:37-0400 Respiratory rate 16 /min MD Krzysztof Harp Work Phone: [facility] 02-05-2024 13:37-0400 SaO2% (BldA) [Mass fraction] 97 % MD Krzysztof Harp Work Phone: [facility] 02-05-2024 13:37-0400 Systolic blood pressure 122 mm[Hg] MD Krzysztof Harp Work Phone: [facility] 02-05-2024 11:35-0400 Body height 157.48 cm MD Krzysztof Harp Work Phone: [facility] 02-05-2024 11:35-0400 Body temperature 99.1 [degF] MD Krzysztof Harp Work Phone: [facility] 02-05-2024 11:35-0400 Body weight 62.14 kg MD Krzysztof Harp Work Phone: [facility] Encounters Encounter Date Encounter Type Care Provider Facility Start: 2024 End: 2024 ambulatory CLEVE NOEL Not Available Start: 04-01-2024 End: 04-01-2024 ambulatory CLEVE NOEL Not Available Start: 03-26-2024 Non-patient / Non-visit MD Krzysztof Harp Work Phone: [facility] G[facility] Work Phone: Start: 03-26-2024 End: 03-26-2024 Admission to same day surgery center MD Krzysztof Harp Work Phone: [facility] Work Phone: Start: 03-26-2024 End: 03-26-2024 ambulatory MD Krzysztof Harp Work Phone: [facility] Work Phone: Start: 02-19-2024 End: 02-19-2024 ambulatory MD Krzysztof Harp Work Phone: [facility] Work Phone: Start: 02-19-2024 End: 02-19-2024 Patient encounter procedure MD Krzysztof Harp Work Phone: [facility] Work Phone: Start: 02-05-2024 Non-patient / Non-visit MD Krzysztof Harp Work Phone: [facility] Work Phone: Start: 02-05-2024 End: 02-05-2024 Admission to same day surgery center MD Krzysztof Harp Work Phone: [facility] Work Phone: Start: 02-05-2024 End: 02-05-2024 ambulatory MD Krzysztof Harp Work Phone: [facility] Work Phone: Start: 01-16-2024 Non-patient / Non-visit MD Krzysztof Harp Work Phone: [facility] Work Phone: Start: 01-09-2024 End: 01-09-2024 ambulatory DARSHAN HERNANDEZ Not Available Start: 01-07-2024 ambulatory KRZYSZTOF M Alison [facility] Start: 01-16-2023 ambulatory JN GARCIA . Facility : Start: 01-15-2023 End: 01-15-2023 ambulatory APRIL CASTANEDA . Facility:[facility] Start: 01-10-2023 End: 01-11-[address] KRZYSZTOF HARP . Facility:[facility] Start: 12-15-2022 End: 12-15-2022 ambulatory APRIL CASTANEDA . Facility:[facility] Start: 12-15-2022 ambulatory RODRIGUEZ RIVERA [facility] Start: 12-05-2022 End: 12-06-[address] KRZYSZTOF [...] 11-20-2018 Patient encounter procedure PROVIDER UNKNOWN Facility:[facility] Start: 11-13-2018 End: 11-14-2018 Patient encounter procedure DEFAULT PHYSICIAN Facility:[facility] Start: 10-31-2018 End: 11-01-2018 Patient encounter procedure DEFAULT PHYSICIAN Facility:[facility] Start: 09-23-2018 End: 09-24-2018 Patient encounter procedure DEFAULT PHYSICIAN Facility:[facility] Start: 09-05-2018 End: 09-06-2018 Patient encounter procedure DEFAULT PHYSICIAN Facility:[facility] Procedures Date Procedure Procedure Detail Performing Clinician Start: 03-26-2024 Screening colonoscopy Akosua Harp Work Phone: Start: 02-05-2024 Esophagogastroduodenoscopy MD Krzysztof Harp Work Phone: Plan of Treatment Date Care Activity Detail Author Start: 03-26-2024 [facility] Start: 02-05-2024 [facility] Patient Education [facility] Work Phone: Payers Date Payer Category Payer Self-pay 2015 Medicare [id number] 1961 Unknown [id number] 1950 Unknown [id number] 2.16.8 40.1.848107.3.579.2.647 1950 Unknown [id number] 2.16.8 40.1.120519.3.579.2.647 1950 Unknown [id number] 2.16.8 40.1.052129.3.579.2.647 1950 Unknown [id number] 2.16.8 40.1.370019.3.579.2.647 1950 Unknown [id number] 2.16.8 40.1.091960.3.579.2.647 1950 Unknown [id number] 2.16.84 0.1.047774.3.579.2.593 1950 Unknown [id number] 2.16.84 0.1.782875.3.579.2.593 1950 Unknown [id number] 2.16.84 0.1.584706.3.579.2.593 1950 Unknown [id number] 2.16.84 0.1.269894.3.579.2.593 1950 Unknown [id number] 2.16.84 0.1.105585.3.579.2.593 1950 Unknown [id number] 2.16.84 0.1.480820.3.579.2.593 1948 Unknown [id number] 2.16.84 0.1.262233.3.579.2.593 1950 Unknown [id number] 2.16.84 0.1.764875.3.579.2.593 1948 Unknown [id number] 2.16.84 0.1.656263.3.579.2.593 1948 Unknown [id number] 2.16.84 0.1.622854.3.579.2.593 1950 Unknown [id number] 2.16.84 0.1.415723.3.579.2.593 1950 Unknown [id number] 2.16.84 0.1.692842.3.579.2.593 1950 Unknown [id number] 2.16.84 0.1.381318.3.579.2.593 1948 Unknown [id number] 2.16.84 0.1.468821.3.579.2.593 1948 Unknown [id number] 2.16.84 0.1.651167.3.579.2.593 1950 Unknown [id number] 2.16.84 0.1.218339.3.579.2.593 1948 Unknown [id number] 2.16.84 0.1.041720.3.579.2.593 1948 Unknown [id number] 2.16.84 0.1.372832.3.579.2.593 1948 Unknown [id number] 2.16.84 0.1.957629.3.579.2.593 1948 Unknown [id number] 2.16.8 40.1.528242.3.579.2.1286 1948 Unknown [id number] 2.16.8 [id number] 1950 Unknown [id number] 2.16.8 [id number] 1950 Unknown [id number] 2.16.84 [id number] 1950 Unknown [id number] 2.16.84 [id number] 1950 Unknown [id number] 2.16.84 [id number] Medicare [id number] Unknown Unknown [id number] 2.16.8 [id number] Unknown [id number] 2.16.8 [id number] Social History Date Type Detail Facility Start: 02-05-2024 End: 03-26-2024 Tobacco smoking status NHIS Never smoked tobacco (finding) [facility] Start: 1950 Sex Assigned At Female F [facility] Goals Date Patient Goal Desired Activity /State Clinical Notes 02-14-2022 to 03-26-2024 Note Date & Type Note Facility 03-26-2024 Procedure note [facility] 02-05-2024 Procedure note [facility] 12-15-2022 Note Cardiology Follow Up Progress Note [...] She will be (more content not included)... [facility] 12-15-2022 Note Review of Systems Cardiovascular: Positive for leg swelling. Respiratory: Positive for shortness of breath. Skin: Positive for color change. Neurological: Positive for headaches. All other systems reviewed and are negative. [facility] 07-25-2022 Note PROCEDURE: MRA NECK WO CON [...] authenticated by: VISHNU MARIE Date: 2022-07-25 13:25 [facility] 05-11-2022 Note PROCEDURE: XR FOOT L T MIN 3 VIEWS HISTORY: Pain in left foot ; acute plantar pain COMPARISON: None. FINDINGS: BONES:No fracture, acute abnormality, or significant arthropathy. SOFT TISSUES:No visible soft tissue swelling. EFFUSION:None visible. OTHER: Negative. IMPRESSION: 1. No acute abnormality, significant degenerative changes, or findings to account for patient's symptoms. Electronically authenticated by: VISHNU MARIE Date: 2022-05-11 12:51 [facility] 02-14-2022 Note PROCEDURE: XR KNEE L T 4V or > COMPARISON: None. HISTORY: Osteoarthritis FINDINGS: BONES:No fracture, acute abnormality, or significant arthropathy. SOFT TISSUES:Negative. No visible soft tissue swelling. EFFUSION:Moderate suprapatellar joint effusion OTHER: Negative. IMPRESSION: Moderate joint effusion Electronically authenticated by: GODWIN BECK Date: 2022-02-14 17:30 [facility] Evaluation note No assessment inform ation available [facility] Work Phone: Evaluation note Diagnosis Onset Date Duodenal diverticulum acute Hiatal hernia acute IBS (irritable bowel syndrome) acute Screening for colon cancer cyndy zaidi [facility] Work Phone: History and physical note Author Ben Sanchez [facility] February 05, 2024 1:08pm Note Date/Time February 05, 2024 1:08p akosua [facility] [place] [address] Gastroenterology H&P Signed Patient: Sheila Mac MR#: [id number] : 1950 Acct:[id number] Age/Sex: 73 / F Adm Date: 4 Loc: Room: Type: [facility] Attending Dr: Ben Sanchez MD Copies to: [...] MD Documented By: Ben Sanchez MD 02/05/24 1306 Signed By: <Electronically signed by Ben Sanchez MD> 02/05/24 1308 [facility] Work Phone: History and physical note Author Ben Sanchez [facility] March 26, 2024 10:37am Note Date/Time March 26, 2024 10:3 7am [facility] [address] [place] [address] Gastroenterology H&P Signed Patient: Sheila Mac MR#: [id number] : 1950 Acct:[id number] Age/Sex: 73 / F Adm Date: 4 Loc: Room: Type: [facility] Attending Dr: Ben Sanchez MD Copies to: MD Krzysztof Crisostomo MD~ Date of Service: 03/26/2024 HISTORY & PHYSICAL: Patient's history with special attention to the cardiovascular, pulmonary systems and the current problem was reviewed with the patient immediately prior to the procedure. Present medications and doses reviewed in the EMR. Allergies and pertinent laboratory tests were also reviewedat this time in the EMR. The physical examination, as below, was then performed. Indication, assessment and HPI: 73 yo F Presents for screening colonoscopy Family history of GI malignancy? no PHYSICAL EXAMINATION Mouth and Pharynx : moist mucus membranes, normal dentition Cardiac: regular rate, regular rhythm Pulmonary: normal respiratory effort, able to speak in complete sentences Neurological: alert and oriented x3, no focal deficits noted [...] Sanchez MD Documented By: Ben Sanchez MD 03/26/24 1036 Signed By: <Electronically signed by Ben Sanchez MD> 03/26/[address] [place] [address] Ctr Work Phone: Summary Purpose Family History No Family History Records Found Relationship Condition Age at Onset Recorded Date/T elizabeth father Unknown Not Specified Unknown Relationship Condition Age at Onset Recorded Date/T elizabeth father Unknown mother Unknown Advance Directives No Advanced Directives Records Found Advance Directive Response Recorded Date/ Time Advance Directives No January 21 3:15pm Chief Complaint and Reason for Visit Chief Complaint duodenal diverticula /abnormal ct duodenal diverticula/abnormal ct Chief Complaint duodenal diverticula /abnormal ct duodenal diverticula/abnormal ct follow up egd Reason for Visit Duodenal diverticulu m Hiatal hernia IBS (irritable bowel syndrome) Screening for colon cancer Chief Complaint duodenal diverticula /abnormal ct duodenal diverticula/abnormal ct follow up egd Screening Screening Reason for Visit Duodenal diverticulu m Hiatal hernia IBS (irritable bowel syndrome) Screening for colon cancer Additional Source Comments INFORMATION SOURCE (unrecogn ized section and content) DATE CREATED AUTHOR 11/24/2018 [facility] DATE CREATED AUTHOR AUTHOR'S ORGANIZ ATION 12/19/2022 [facility] DATE CREATED AUTHOR AUTHOR'S ORGANIZ ATION 01/18/2023 [facility] DATE CREATED AUTHOR AUTHOR'S ORGANIZ ATION 01/10/2024 [facility] DATE CREATED AUTHOR AUTHOR'S ORGANIZ ATION 03/29/2024 [facility] DATE CREATED AUTHOR AUTHOR'S ORGANIZ ATION 04/10/2024 [facility] EPIC Care Teams (unrecognized sec tion and content) [...] February 19, 2024 End: February 19, 2024 Team Status: Inactive Member Role Status Dates Krzysztof Harp MD Primary Care Provider Active Start: March 26, 2024 End: March 26, 2024 Ben Sanchez MD Attending Provider Active S tart: March 26, 2024 End: March 26, 2024 Team Status: Active Member Role Status Dates Krzysztof Harp MD Primary Care Provider Active Start: March 26, 2024 Ben Sanchez MD Attending Provider, Other Provide r Active Start: March 26, 2024 FOR RECORDS PERTAINING TO PATIENTS WHO [...] ON THE PRIMARY CLINICAL RECORDS. [facility] [employer] provides no warranty or guarantee of the accuracy or completeness of information in this document.
[2024-04-22] MEDS: TRIAMCINOLONE ACETONIDE 40 MG/ML VIAL INJ (09:45)
[2024-04-22] MEDS: LIDOCAINE HCL 10 ML, SODIUM BICARBONATE 1 MEQ INJ (09:45)
[2024-04-22] MEDS: BUPIVACAINE HCL 0.5% PF 50 MG/10 ML VIAL 2 ML INJ (09:45)
--- NOTE | 2024-04-22 10:12 | FL_ITS ---
The [address] [address] Patient Name: EDIN SAMANIEGO MRN: [id number] date: 1950 Sex: F Assigned Patient Location: [place] Current Patient Location: [place] Accession/Order Number: [id number] Exam Date: 04/22/2024 09:14 Report Date: 04/22/2024 10:57 At the request of: KRZYSZTOF THOMPSON Procedure: FL hip inj RT EXAMINATION: FL hip inj RT, FL guided needle placement HISTORY: Right Hip Pain COMPARISON: No relevant comparison available. FLUORO DOSE: Unknown TECHNIQUE: A joint injection was performed in the usual sterile manner after obtaining informed consent. Standard level fluoroscopic mode of operation utilized. FINDINGS: JOINT: Right hip. NEEDLE: 22 gauge, 3.5 spinal needle. MEDICATION: 2cc buffered 1% lidocaine for subcutaneous anesthesia 2cc Omnipaque-300 iodinated contrast to visualize the joint space Mixture of Kenalog 40 mg, 0.5% Bupivacaine 2 mL and Omnipaque 300 10mL was injected into the joint space. TECHNIQUE: Anterior approach with prior localization of the femoral artery. A single stick was successful in gaining access to the joint space. CLINICAL: 6/10 before injection, 5/10 after injection. COMPLICATIONS: None. OTHER: Negative. FL/FL hip inj RT IMPRESSION: Technically successful arthrogram right hip Electronically authenticated by: GODWIN BECK Date: 04/22/2024 10:57
--- NOTE | 2024-04-22 10:47 | SUR.PREOP ---
04/16/24 Pt returned phone an now wants to get injection scheduled as her hip pain is much worse recently. Pt instructed to hold ASA and Plavix x 5 days prior to procedure. Also discussed pt allergy to contrast and will need premedicated with benadryl and Prednisone. Dr Hawthorne office made aware that they will need to send script to [facility] for patient and she will pick it up.
== END 2024-04-22 10:10 | disposition home or self-care (01) ==
LOC: FL 08:56
PROVIDERS: Radiology Diagnostic Radiology; PCP Family Medicine; Visit Provider Family Medicine
DX: M25.551 Pain in right hip (principal)
CPT/HCPCS: 20610; 77002; J0665; J3301; Q9967

== ENCOUNTER 2024-04-28 14:14 | Outpatient (OUT) | payer MEDICARE, SELFPAY ==
[2024-04-28 14:40] LABS: Basophils Percent Auto 0.1 % (0.2-2.0); Eosinophils Absolute Auto 0.1 10^3/uL (0.0-0.7); Eosinophils Percent Auto 0.6 % (0.9-7.0); Hematocrit 42.2 % (36.0-48.0); Hemoglobin 13.5 g/dL (12.0-16.0); Immature Granulocytes Pct Auto 1.4 % (0.0-0.5); Lymphocytes Absolute Auto 1.7 10^3/uL (1.2-3.8); Lymphocytes Percent Auto 12.3 % (20.5-60.0); Mean Corpuscular Hemoglobin 31.7 pg (26.7-34.0); Mean Corpuscular Volume 99.1 fL (81.0-99.0); Mean Platelet Volume 10.1 fL (9.5-13.5); Monocytes Absolute Auto 1.2 10^3/uL (0.3-0.8); Monocytes Percent Auto 8.5 % (1.7-12.0); Neutrophils Absolute Auto 10.8 10^3/uL (1.4-6.5); Neutrophils Percent Auto 77.1 % (43.0-75.0); Platelet Count 253 10^3/uL (150-450); Red Blood Count 4.26 10^6/uL (4.20-5.40); Red Cell Distribution Width 13.2 % (11.0-15.0)
[2024-04-28 15:12] LABS: Erythrocyte Sedimentation Rate 49 mm/hr (<=30)
[2024-04-28 15:54] LABS: Free T4 0.93 ng/dL (0.76-1.46)
[2024-04-28 16:03] LABS: Alanine Aminotransferase 33 U/L (14-59); Albumin Globulin Ratio 0.7; Albumin Level 2.8 g/dL (3.4-5.0); Alkaline Phosphatase 141 U/L (46-116); Amylase 186 U/L (25-115); Anion Gap 14.2; Aspartate Amino Transferase 10 U/L (15-37); BUN Creatinine Ratio 31.9; Bilirubin Total 0.3 mg/dL (0.2-1.0); C Reactive Protein <0.50 mg/dL (<=0.50); Calcium 8.6 mg/dL (8.5-10.1); Carbon Dioxide 22.6 mmol/L (21.0-32.0); Chloride 106 mmol/L (98-107); Estimated GFR (African America 28 (>=60); Estimated GFR (Non-African Ame 23 (>=60); Free T3 1.49 pg/mL (2.18-3.98); Globulin 3.9 g/dL; Glucose 112 mg/dL (74-106); Potassium 4.8 mmol/L (3.5-5.1); Sodium 138 mmol/L (136-145); Thyroid Stimulating Hormone 2.482 uIU/mL (0.358-3.740); Total Protein 6.7 g/dL (6.4-8.2); Troponin I High Sensitivity 8.7 pg/mL (4.0-51.3)
== END 2024-04-28 14:15 | disposition home or self-care (01) ==
LOC: LAB 14:15
PROVIDERS: PCP Family Medicine; Visit Provider Family Medicine
DX: R53.83 Other fatigue (principal); R11.2 Nausea with vomiting, unspecified; I11.0 Hypertensive heart disease with heart failure; I50.30 Unspecified diastolic (congestive) heart failure
CPT/HCPCS: 36415; 80053; 82150; 83690; 83880; 84439; 84443; 84481; 84484; 85025; 85652; 86140

== ENCOUNTER 2024-04-29 11:25 | Inpatient (IN) | payer MEDICARE, SELFPAY ==
[2024-04-29] VITALS (22 sets, daily range): BP systolic 105–186; BP diastolic 57–151; PULSE 75–101; TEMP 36.4; O2SAT 96–100; BMI 25.8; BMI 24.6
--- NOTE | 2024-04-29 11:39 | ECG_ITS ---
The [facility] Test Date: 2024-04-29 Pat Name: EDIN SAMANIEGO Department: Room: - Gender: Female Interpreter Deaf: : 1950 Requested By: KRZYSZTOF THOMPSON Order Number: [id number] Reading MD: KRZYSZTOF THOMPSON Measurements Intervals [place] Rate: 93 P: 17 [place]: 126 QRS: -2 QRSD: 66 T: 18 QT: 338 QTc: 389 Interpretive Statements 1100 Sinus rhythm 5234 Left ventricular hypertrophy with repolarization abnormality 9150 abnormal ECG Compared to ECG 11/24/2022 10:05:26 Left ventricular hypertrophy now present Early repolarization now present Sinus tachycardia no longer present Ventricular premature complex(es) no longer present Electronically Signed On 04-30-2024 7:03:09 EDT by KRZYSZTOF THOMPSON
--- NOTE | 2024-04-29 11:55 | XR_ITS ---
The [address] [address] Patient Name: EDIN SAMANIEGO MRN: [id number] date: 1950 Sex: F Assigned Patient Location: ER Current Patient Location: ER Accession/Order Number: [id number] Exam Date: 04/29/2024 11:50 Report Date: 04/29/2024 12:14 At the request of: OCTAVIO MEJIA Procedure: XR chest 1V EXAMINATION: XR chest 1V HISTORY: weakness COMPARISON: 10/08/2023 TECHNIQUE: Portable FINDINGS: LUNGS: No significant pulmonary parenchymal abnormalities. VASCULATURE: No increased pulmonary vasculature. PLEURA: No pneumothorax, effusion, or pleural thickening. CARDIAC: No cardiomegaly or cardiac silhouette abnormality. MEDIASTINUM: No visible mass or adenopathy. Ectatic aortic course, grossly stable BONES: No fracture or visible bone lesion. OTHER: Negative. XR/XR chest 1V IMPRESSION: Clear lungs Electronically authenticated by: GODWIN BECK Date: 04/29/2024 12:14
--- NOTE | 2024-04-29 12:04 | CT_ITS ---
[address] [address] Patient Name: EDIN SAMANIEGO MRN: [id number] date: 1950 Sex: F Assigned Patient Location: ER Current Patient Location: ER Accession/Order Number: [id number] Exam Date: 04/29/2024 12:00 Report Date: 04/29/2024 12:21 At the request of: OCTAVIO MEJIA Procedure: CT abdomen pelvis wo con EXAMINATION: CT abdomen pelvis wo con HISTORY: abd pain COMPARISON: 12/25/2023 TECHNIQUE: Axial, Coronal, and Sagittal images were created without IV contrast. Dose reduction techniques were achieved by using automated exposure control and/or adjustment of mA and/or kV according to patient size and/or use of iterative reconstruction technique. FINDINGS: LUNG BASES: No visible pulmonary or pleural disease. LIVER: No enlargement, atrophy, abnormal density, or significant focal lesion. BILIARY: Layering hyperdensity likely cholelithiasis or gallbladder sludge without CT evidence of acute cholecystitis PANCREAS: No lesion, fluid collection, ductal dilatation, or atrophy. SPLEEN: No enlargement or focal lesion. ADRENALS: No mass or enlargement. KIDNEYS: No mass, obstruction, or calcification. BOWEL/MESENTERY: Extensive colonic diverticulosis without evidence of acute diverticulitis. Moderate sliding-type hiatal hernia. Nonobstructive bowel gas pattern. Duodenal diverticulum AORTA/VASCULAR: No aortic aneurysm. Moderate calcific atherosclerosis RETROPERITONEUM: No mass or adenopathy. LYMPH NODES: No adenopathy. URINARY BLADDER: No visible focal wall thickening, lesion, or calculus. PELVIC ORGANS: Hysterectomy ABDOMINAL WALL: No mass or hernia. BONES: No bony lesion or fracture. Rotatory levo curvature centered at L2-L3. Moderate degenerative change OTHER: Negative. CT/CT abdomen pelvis wo con IMPRESSION: No acute radiographic abnormality Electronically authenticated by: GODWIN BECK Date: 04/29/2024 12:21
[2024-04-29 12:13] LABS: Internal Control Within Normal Limits; SARS-CoV-2 Ag NEGATIVE (NEGATIVE)
[2024-04-29] MEDS: 0.9 % SODIUM CHLORIDE 500 ML IV (12:14)
[2024-04-29 12:40] LABS: Basophils Percent Auto 0.1 % (0.2-2.0); Eosinophils Absolute Auto 0.1 10^3/uL (0.0-0.7); Eosinophils Percent Auto 0.5 % (0.9-7.0); Hematocrit 38.6 % (36.0-48.0); Hemoglobin 12.7 g/dL (12.0-16.0); Immature Granulocytes Abs Auto 0.21 10^3/uL (0.00-0.03); Immature Granulocytes Pct Auto 1.4 % (0.0-0.5); Lymphocytes Absolute Auto 1.7 10^3/uL (1.2-3.8); Lymphocytes Percent Auto 11.3 % (20.5-60.0); Mean Corpuscular HGB Conc 32.9 g/dL (29.9-35.2); Mean Corpuscular Hemoglobin 32.8 pg (26.7-34.0); Mean Corpuscular Volume 99.7 fL (81.0-99.0); Mean Platelet Volume 9.8 fL (9.5-13.5); Monocytes Absolute Auto 1.5 10^3/uL (0.3-0.8); Monocytes Percent Auto 9.8 % (1.7-12.0); Neutrophils Absolute Auto 11.7 10^3/uL (1.4-6.5); Neutrophils Percent Auto 76.9 % (43.0-75.0); Platelet Count 225 10^3/uL (150-450); Red Blood Count 3.87 10^6/uL (4.20-5.40); Red Cell Distribution Width 13.2 % (11.0-15.0); White Blood Count 15.2 10^3/uL (4.0-11.0)
[2024-04-29 12:48] LABS: Alanine Aminotransferase 29 U/L (14-59); Albumin Globulin Ratio 0.8; Albumin Level 2.7 g/dL (3.4-5.0); Alkaline Phosphatase 136 U/L (46-116); Anion Gap 14.5; Aspartate Amino Transferase 14 U/L (15-37); BUN Creatinine Ratio 33.3; Bilirubin Total 0.4 mg/dL (0.2-1.0); Calcium 8.5 mg/dL (8.5-10.1); Carbon Dioxide 20.4 mmol/L (21.0-32.0); Chloride 107 mmol/L (98-107); Estimated GFR (African America 31 (>=60); Estimated GFR (Non-African Ame 26 (>=60); Globulin 3.6 g/dL; Glucose 93 mg/dL (74-106); Potassium 4.9 mmol/L (3.5-5.1); Sodium 137 mmol/L (136-145); Total Protein 6.3 g/dL (6.4-8.2)
[2024-04-29 12:54] LABS: Troponin I High Sensitivity 11.9 pg/mL (4.0-51.3)
--- NOTE | 2024-04-29 13:01 | ED_ITS ---
HPI HPI - General Adult General Chief complaint: Weakness Stated complaint: CLINIC REFERRAL/ DR HARP Time Seen by Provider: 04/29/24 11:31 Source: patient Mode of arrival: walk-in Limitations: no limitations History of Present Illness HPI narrative: Patient presents to ED complaining of generalized weakness and not feeling well. She said this started about a week ago after she received IV contrast for CAT scan. She thinks she had a reaction to that and has not felt right since. She was sent over by Dr. Harp for further evaluation. She states that food just does not taste right and she is not really eating and drinking well. She was diagnosed with a UTI and states that she does not really feel better from that either. She reports lower abdominal pain and pressure and urinary tract symptoms. She is anxious and tearful on arrival. She denies chest pain but does report some shortness of breath and a little cough. who is with her states that he has not been sick Related Data Home Medications ?Medication ?Instructions ?Recorded ?Confirmed aspirin 81 mg tablet,delayed 81 mg PO DAILY 04/17/24 04/29/24 release atorvastatin 20 mg tablet 20 mg PO DAILY 04/17/24 04/29/24 cetirizine 10 mg capsule 10 mg PO DAILY 04/17/24 04/29/24 clopidogrel 75 mg tablet (Plavix) 75 mg PO DAILY 04/17/24 04/29/24 cyproheptadine 4 mg tablet 4 mg PO BID 04/17/24 04/29/24 diphenhydramine HCl 25 mg capsule 50 mg PO QID contrast allergy 04/17/24 04/29/24 (Allergy (diphenhydramine)) lactulose 20 gram/30 mL oral 30 ml PO BID 04/17/24 04/29/24 solution pantoprazole 40 mg tablet,delayed 40 mg PO QPM 04/17/24 04/29/24 release (Protonix) sucralfate 1 gram tablet (Carafate) 1 g PO Q6H 04/17/24 04/29/24 carvedilol 3.125 mg tablet 3.125 mg PO Q12H 04/29/24 04/29/24 cetirizine 10 mg tablet 10 mg PO DAILY 04/29/24 04/29/24 lactulose 10 gram/15 mL oral 04/29/24 solution Allergies Allergy/AdvReac Type Severity Reaction Status Date / Time Iodinated Contrast Media Allergy edema Verified 04/22/24 10:40 levofloxacin [From Levaquin] Allergy Unknown Verified 04/22/24 10:40 Penicillins Allergy Rash Verified 04/22/24 10:40 meloxicam [From Mobic] AdvReac Unknown Verified 04/22/24 10:40 morphine AdvReac Vomiting Verified 04/22/24 10:40 NSAIDS (Non-Steroidal AdvReac gastric Verified 04/22/24 10:40 Anti-Inflamma ulcer Opioid HPI Opioid Management Most Recent Opioid Data: Last Pain Scale 5 04/22/24 10:10 Review of Systems ROS Status of ROS 10 or more systems reviewed and unremark able except as noted in history and below [facility] Medical History (Updated 04/29/24 @ 14:24 by Bridget Naranjo DO) Osteoporosis ?M81.0 - Age-related osteoporosis without current pathological fracture (ICD- 10) Arthritis ?M19.90 - Unspecified osteoarthritis, unspecified site (ICD-10) CVA (cerebral vascular accident) ?I63.9 - Cerebral infarction, unspecified (ICD-10) Kidney stone ?N20.0 - Calculus of kidney (ICD-10) Gastric ulcer ?K25.9 - Gastric ulcer, unspecified as acute or chronic, without hemorrhage or perforation (ICD-10) Hiatal hernia ?K44.9 - Diaphragmatic hernia without obstruction or gangrene (ICD-10) GERD (gastroesophageal reflux disease) ?K21.9 - Gastro-esophageal reflux disease without esophagitis (ICD-10) Fibromyalgia ?M79.7 - Fibromyalgia (ICD-10) Diverticulosis ?K57.90 - Diverticulosis of intestine, part unspecified, without perforation or abscess without bleeding (ICD-10) CKD (chronic kidney disease) stage 3, GFR 30-59 ml/min ?N18.30 - Chronic kidney disease, stage 3 unspecified (ICD-10) Borderline diabetes ?R73.03 - Prediabetes (ICD-10) HTN (hypertension) ?I10 - Essential (primary) hypertension (ICD-10) Surgical History (Updated 04/17/24 @ 09:05 by Julieta Martinez) Perforated gastric ulcer ?K25.5 - Chronic or unspecified gastric ulcer with perforation (ICD-10) H/O colonoscopy ?Z98.890 - Other specified postprocedural states (ICD-10) H/O Spinal surgery ?Z98.890 - Other specified postprocedural states (ICD-10) Hx of exploratory laparotomy ?Z98.890 - Other specified postprocedural states (ICD-10) S/P right knee arthroscopy ?Z98.890 - Other specified postprocedural states (ICD-10) History of hysterectomy ?Z90.710 - Acquired absence of both cervix and uterus (ICD-10) History of esophagogastroduodenoscopy ?Z98.890 - Other specified postprocedural states (ICD-10) S/P cystoscopy ?Z98.890 - Other specified postprocedural states (ICD-10) Status post cervical spinal fusion ?Z98.1 - Arthrodesis status (ICD-10) Hx of tubal ligation ?Z98.51 - Tubal ligation status (ICD-10) Hx of appendectomy ?Z90.49 - Acquired absence of other specified parts of digestive tract (ICD- 10) Exam Narrative Exam Narrative: Time Seen: [] Vital Signs: [Per nurse's notes.] General: [Alert] Skin: [Warm, dry, no rash.] Head: [Normocephalic, atraumatic.] Neck: [Supple, trachea midline.] Eye: [Pupils are equal, round and reactive to light, extraocular movements are intact, normal conjunctiva.] Ears, nose, mouth and throat: oral mucosa moist. Cardiovascular: [Regular rate and rhythm, no murmur.] Respiratory: [Lungs are clear to auscultation, respirations are non-labored, breath sounds are equal.] Chest wall: [No tenderness, no deformity.] Gastrointestinal: [Soft, Suprapubic tenderness, non distended, normal bowel sounds.] MSK: 5 out of 5 muscle strength x 4 extremities no calf pain or edema Lymphatics: [No lymphadenopathy.] Psychiatric: [Cooperative,Anxious Tearful Neurological: [Alert and oriented to person, place, time, and situation, no focal neurological deficit observed.] Constitutional Vital Signs, click to edit/add: Last Vital Signs Temp 97.6 F 04/29/24 11:36 Pulse 99 H 04/29/24 11:36 Resp 18 04/29/24 11:36 BP 180/96 H 04/29/24 11:36 Pulse Ox 99 04/29/24 11:36 O2 Del Method Room Air 04/29/24 11:36 Course Vital Signs Vital signs: Vital Signs Temperature 97.6 F 04/29/24 11:36 Pulse Rate 99 H 04/29/24 11:36 Respiratory Rate 18 04/29/24 11:36 Blood Pressure 180/96 H 04/29/24 11:36 Pulse Oximetry 99 04/29/24 11:36 Oxygen Delivery Method Room Air 04/29/24 11:36 Temperature 97.6 F 04/29/24 11:36 Pulse Rate 99 H 04/29/24 11:36 Respiratory Rate 18 04/29/24 11:36 Blood Pressure 180/96 H 04/29/24 11:36 Pulse Oximetry 99 04/29/24 11:36 Oxygen Delivery Method Room Air 04/29/24 11:36 Medical Decision Making MDM Narrative Medical decision making narrative: Patient's labs showed an elevated white blood cell count and persistent UTI despite the fact she has been on cefdinir. Patient will be admitted to Dr. Hagen who came down to the ER to see the patient. He states he will start IV antibiotics on her. CT scan was negative chest x-ray clear. Labs otherwise nonacute. Patient comfortable care plan for admission Differential Diagnosis Differential Diagnosis: Anxiety, UTI, viral syndrome, renal failure Medical Records Medical records reviewed: Yes I reviewed the patient's medical records Lab Data Lab results reviewed: Yes I reviewed the patient's lab results Labs: Lab Results 04/29/24 04/29/24 04/29/24 Range/Units 12:00 12:28 13:24 WBC 15.2 H (4.0-11.0) 10^3/uL RBC 3.87 L (4.20-5.40) 10^6/uL Hgb 12.7 (12.0-16.0) g/dL Hct 38.6 (36.0-48.0) % MCV 99.7 H (81.0-99.0) fL MCH 32.8 (26.7-34.0) pg MCHC 32.9 (29.9-35.2) g/dL RDW 13.2 (11.0-15.0) % Plt Count 225 (150-450) 10^3/uL MPV 9.8 (9.5-13.5) fL Neut % (Auto) 76.9 H (43.0-75.0) % Lymph % (Auto) 11.3 L (20.5-60.0) % Wilkin % (Auto) 9.8 (1.7-12.0) % Eos % (Auto) 0.5 L (0.9-7.0) % Baso % (Auto) 0.1 L (0.2-2.0) % Neut # (Auto) 11.7 H (1.4-6.5) 10^3/uL Lymph # (Auto) 1.7 (1.2-3.8) 10^3/uL Wilkin # (Auto) 1.5 H (0.3-0.8) 10^3/uL Eos # (Auto) 0.1 (0.0-0.7) 10^3/uL Baso # (Auto) 0.0 (0.0-0.1) 10^3/uL Abs Immat Gran (auto) 0.21 H (0.00-0.03) 10^3/uL Imm/Tot Granulo (auto) 1.4 H (0.0-0.5) % Sodium 137 (136-145) mmol/L Potassium 4.9 (3.5-5.1) mmol/L Chloride 107 (98-107) mmol/L Carbon Dioxide 20.4 L (21.0-32.0) mmol/L Anion Gap 14.5 BUN 63.0 H (7.0-18.0) mg/dL Creatinine 1.89 H (0.55-1.02) mg/dL Est GFR ( Amer) 31 L (>=60) Est GFR (Non-Af Amer) 26 L (>=60) BUN/Creatinine Ratio 33.3 Glucose 93 (74-106) mg/dL Calcium 8.5 (8.5-10.1) mg/dL Total Bilirubin 0.4 (0.2-1.0) mg/dL AST 14 L (15-37) U/L ALT 29 (14-59) U/L Alkaline Phosphatase 136 H (46-116) U/L Troponin I High Sens 11.9 (4.0-51.3) pg/mL Total Protein 6.3 L (6.4-8.2) g/dL Albumin 2.7 L (3.4-5.0) g/dL Globulin 3.6 g/dL Albumin/Globulin Ratio 0.8 Urine Color Lt. yellow (YELLOW) Urine Clarity Clear (CLEAR) Urine pH 5.5 (5.0-9.0) Ur Specific [place] 1.020 (1.005-1.025) Urine Protein Negative (NEG/TRACE) mg/dL Urine Glucose (UA) Negative (NEGATIVE) mg/dL Urine Ketones Negative (NEGATIVE) mg/dL Urine Occult Blood Trace-i (NEGATIVE) Urine Nitrite Negative (NEGATIVE) Urine Bilirubin Negative (NEGATIVE) Urine Urobilinogen 0.2 (0.2-1.0) EU/dL Ur Leukocyte Esterase Moderate A (NEGATIVE) Urine RBC 2-5 A (0-2) #/HPF Urine WBC 50-75 A (NONE SEEN) #/HPF Ur Squamous Epith Cells Few A (NONE/RARE) #/LPF Urine Crystals None seen (None Seen) #/HPF Urine Bacteria Small A (NONE SEEN) #/HPF Urine Casts None seen (NONE SEEN) #/LPF Urine Mucus None seen (NONE SEEN) Ur Culture Indicated? Yes SARS-CoV-2 Ag (CV2AG) Negative (NEGATIVE) Imaging Data CT scan - abdomen: Radiologist's impression: ITS Impressions Chest X-Ray 04/29/24 11:55 IMPRESSION: Clear lungs Electronically authenticated by: GODWIN BECK Date: 04/29/2024 12:14 Abdomen/Pelvis CT 04/29/24 12:04 IMPRESSION: No acute radiographic abnormality Electronically authenticated by: GODWIN BECK Date: 04/29/2024 12:21 ECG Data Attestation: I personally reviewed and interpreted this ECG as follows: Interpretation: EKG INTERPRETATION Time: []121 Rate: []93 Rhythm: _ []Normal sinus rhythm ST segments: _ []No acute ST elevation or depression T waves: _ [] Ectopy: _ [] P wave/[place] interval: _ [] QRS interval: _ [] QT interval: _ [] Comparison: _ [] Comparison EKG date: [] Performed by: [self] Discharge Plan Discharge Chief Complaint: Weakness Clinical Impression: Acute UTI, Leukocytosis Patient Disposition: Admitted as Observation Time of Disposition Decision: 14:24 Condition: Fair Prescriptions / Home Meds: No Action aspirin 81 mg tablet,delayed release (DR/EC) 81 mg PO DAILY atorvastatin 20 mg tablet 20 mg PO DAILY sucralfate [Carafate] 1 gram tablet 1 g PO Q6H cetirizine 10 mg capsule 10 mg PO DAILY cyproheptadine 4 mg tablet 4 mg PO BID lactulose 20 gram/30 mL solution 30 ml PO BID clopidogrel [Plavix] 75 mg tablet 75 mg PO DAILY pantoprazole [Protonix] 40 mg tablet,delayed release (DR/EC) 40 mg PO QPM diphenhydramine HCl [Allergy (diphenhydramine)] 25 mg capsule 50 mg PO QID Rx Instructions: started Wednesday 04/18 and is continuing Sunday, Sunday, Sunday, and Sunday carvedilol 3.125 mg tablet 3.125 mg PO Q12H cetirizine 10 mg tablet 10 mg PO DAILY lactulose 10 gram/15 mL solution Print Language: Maltese Referrals: Alvaro Harp MD [Primary Care Provider] - 1 week
[2024-04-29 13:48] LABS: Bilirubin Urine NEGATIVE (NEGATIVE); Blood Urine TRACE-I (NEGATIVE); Clarity Urine CLEAR (CLEAR); Color Urine LT. YELLOW (YELLOW); Glucose Urine UA NEGATIVE (NEGATIVE); Ketones Urine NEGATIVE (NEGATIVE); Leukocyte Esterase Urine MODERATE (NEGATIVE); Nitrite Urine NEGATIVE (NEGATIVE); Protein Urine NEGATIVE (NEG/TRACE); Urobilinogen Urine 0.2 EU/dL (0.2-1.0); pH Urine 5.5 (5.0-9.0)
[2024-04-29 13:49] LABS: Urine Microscopic Indicated YES
[2024-04-29 14:05] LABS: Bacteria Urine SMALL #/HPF (NONE SEEN); Cast Seen? NONE SEEN #/LPF (NONE SEEN); Crystals Seen? None Seen #/HPF (None Seen); Mucus Urine NONE SEEN (NONE SEEN); Squamous Epithelial Cell Urine FEW #/LPF (NONE/RARE); Urine Culture Indicated YES; WBC Urine 50-75 #/HPF (NONE SEEN)
--- NOTE | 2024-04-29 14:41 | PM.HP ---
HPI H&P: HPI History of Present Illness Chief complaint: CLINIC REFERRAL/ DR THOMPSON, UTI, LEUKOCYTOSIS Narrative: 74-year-old female was sent to ER by her PCP for generalized weakness, anorexia, abdominal pain. Patient recently received IV contrast for hip arthrogram and seems to think that her symptoms are related to contrast injection. She was also being treated for a UTI and is currently on oral antibiotic for it Upon workup in ED, she was noted to have worsening leukocytosis but rest of her labs were unremarkable. She has prior history of pancreatitis and had mild elevation in amylase on labs from yesterday. She does not have any epigastric pain. She complains of mild suprapubic discomfort. Reports nausea, loss of taste and poor appetite. Denies vomiting or diarrhea/constipation. Patient was very anxious, emotional and upset that she has to stay in the hospital because tomorrow is her anniversary. She is very anxious about her current illness. Opioid HPI Opioid Management Most Recent Pain and Opioid Data: Last Pain Scale 5 04/22/24 10:10 Review of Systems ROS Status of ROS 10 or more systems reviewed and unremarkable except as noted in history and below [facility] Medical History (Updated 04/29/24 @ 15:00 by Shaikh Seamus MD) H/O: CVA (cerebrovascular accident) ?Z86.73 - Personal history of transient ischemic attack (TIA), and cerebral infarction without residual deficits (ICD-10) Osteoporosis ?M81.0 - Age-related osteoporosis without current pathological fracture (ICD-10) Arthritis ?M19.90 - Unspecified osteoarthritis, unspecified site (ICD-10) CVA (cerebral vascular accident) ?I63.9 - Cerebral infarction, unspecified (ICD-10) Kidney stone ?N20.0 - Calculus of kidney (ICD-10) Gastric ulcer ?K25.9 - Gastric ulcer, unspecified as acute or chronic, without hemorrhage or perforation (ICD-10) Hiatal hernia ?K44.9 - Diaphragmatic hernia without obstruction or gangrene (ICD-10) GERD (gastroesophageal reflux disease) ?K21.9 - Gastro-esophageal reflux disease without esophagitis (ICD-10) Fibromyalgia ?M79.7 - Fibromyalgia (ICD-10) Diverticulosis ?K57.90 - Diverticulosis of intestine, part unspecified, without perforation or abscess without bleeding (ICD-10) CKD (chronic kidney disease) stage 3, GFR 30-59 ml/min ?N18.30 - Chronic kidney disease, stage 3 unspecified (ICD-10) Borderline diabetes ?R73.03 - Prediabetes (ICD-10) HTN (hypertension) ?I10 - Essential (primary) hypertension (ICD-10) Surgical History (Updated 04/17/24 @ 09:05 by Julieta Martinez) Perforated gastric ulcer ?K25.5 - Chronic or unspecified gastric ulcer with perforation (ICD-10) H/O colonoscopy ?Z98.890 - Other specified postprocedural states (ICD-10) H/O Spinal surgery ?Z98.890 - Other specified postprocedural states (ICD-10) Hx of exploratory laparotomy ?Z98.890 - Other specified postprocedural states (ICD-10) S/P right knee arthroscopy ?Z98.890 - Other specified postprocedural states (ICD-10) History of hysterectomy ?Z90.710 - Acquired absence of both cervix and uterus (ICD-10) History of esophagogastroduodenoscopy ?Z98.890 - Other specified postprocedural states (ICD-10) S/P cystoscopy ?Z98.890 - Other specified postprocedural states (ICD-10) Status post cervical spinal fusion ?Z98.1 - Arthrodesis status (ICD-10) Hx of tubal ligation ?Z98.51 - Tubal ligation status (ICD-10) Hx of appendectomy ?Z90.49 - Acquired absence of other specified parts of digestive tract (ICD-10) Social History (Updated 04/29/24 @ 14:52 by Shaikh Seamus MD) Within the past year, how often did you have a drink containing alcohol: monthly or less Within the past year, how many standard drinks containing alcohol did you have on a typical day: 1 or 2 Within the past year, how often did you have six or more drinks on one occasion: never Total score: 0 Score interpretation: A score less than 3 is consistent with normal alcohol consumption. Smoking status: Never smoker Non-prescribed substance use: denies use Meds Home Medications and Allergies Home Medications ?Medication ?Instructions ?Recorded ?Confirmed ?Type aspirin 81 mg tablet,delayed 81 mg PO DAILY 04/17/24 04/29/24 History release atorvastatin 20 mg tablet 20 mg PO DAILY 04/17/24 04/29/24 History cetirizine 10 mg capsule 10 mg PO DAILY 04/17/24 04/29/24 History clopidogrel 75 mg tablet (Plavix) 75 mg PO DAILY 04/17/24 04/29/24 History cyproheptadine 4 mg tablet 4 mg PO BID 04/17/24 04/29/24 History diphenhydramine HCl 25 mg capsule 50 mg PO QID contrast allergy 04/17/24 04/29/24 History (Allergy (diphenhydramine)) lactulose 20 gram/30 mL oral 30 ml PO BID 04/17/24 04/29/24 History solution pantoprazole 40 mg tablet,delayed 40 mg PO QPM 04/17/24 04/29/24 History release (Protonix) sucralfate 1 gram tablet (Carafate) 1 g PO Q6H 04/17/24 04/29/24 History carvedilol 3.125 mg tablet 3.125 mg PO Q12H 04/29/24 04/29/24 History cetirizine 10 mg tablet 10 mg PO DAILY 04/29/24 04/29/24 History lactulose 10 gram/15 mL oral 04/29/24 History solution Allergies Allergy/AdvReac Type Severity Reaction Status Date / Time Iodinated Contrast Media Allergy edema Verified 04/22/24 10:40 levofloxacin [From Levaquin] Allergy Unknown Verified 04/22/24 10:40 Penicillins Allergy Rash Verified 04/22/24 10:40 meloxicam [From Mobic] AdvReac Unknown Verified 04/22/24 10:40 morphine AdvReac Vomiting Verified 04/22/24 10:40 NSAIDS (Non-Steroidal AdvReac gastric Verified 04/22/24 10:40 Anti-Inflamma ulcer Exam Constitutional Vital Signs, click to edit/add: Last Vital Signs Temp 97.6 F 04/29/24 11:36 Pulse 83 04/29/24 14:20 Resp 18 04/29/24 14:29 BP 124/76 04/29/24 14:29 Pulse Ox 99 04/29/24 14:29 O2 Del Method Room Air 04/29/24 11:36 Documenting provider has reviewed patient's vital signs: yes Common normals: no apparent distress and oriented x3 General appearance: cooperative HENMT Common normals: normocephalic and head/scalp atraumatic Head and scalp: normocephalic and atraumatic Respiratory Common normals: normal respiratory effort and clear to auscultation bilaterally Effort & inspection: able to speak in complete sentences Auscultation: clear to auscultation bilaterally Cardio Common normals: regular rate, S1 normal heart sound and S2 normal heart sound Rate: regular rate Heart sounds: S1 normal and S2 normal GI Common normals: Normal to inspection, nondistended, normoactive bowel sounds present, soft to palpation and no hepatosplenomegaly Palpation: soft, tender Details: suprapubic and no hepatosplenomegaly Extremity Common normals: no clubbing, cyanosis or edema Neuro Common normals: oriented x3, moves all extremities and no focal motor deficits Psych Common normals: mental status grossly normal, denies hallucinations, denies homicidal ideation and denies suicidal ideation Results Labs Labs: Short CBC 04/29/24 Range/Units 12:28 WBC 15.2 H (4.0-11.0) 10^3/uL Hgb 12.7 (12.0-16.0) g/dL Hct 38.6 (36.0-48.0) % Plt Count 225 (150-450) 10^3/uL BMP 04/29/24 12:28 Sodium 137 Potassium 4.9 Chloride 107 Carbon Dioxide 20.4 L BUN 63.0 H Creatinine 1.89 H Glucose 93 Calcium 8.5 Liver Function 04/29/24 Range/Units 12:28 Total Bilirubin 0.4 (0.2-1.0) mg/dL AST 14 L (15-37) U/L ALT 29 (14-59) U/L Alkaline Phosphatase 136 H (46-116) U/L Albumin 2.7 L (3.4-5.0) g/dL Urine 04/29/24 Range/Units 13:24 Urine Color Lt. yellow (YELLOW) Urine Clarity Clear (CLEAR) Urine pH 5.5 (5.0-9.0) Ur Specific [place] 1.020 (1.005-1.025) Urine Protein Negative (NEG/TRACE) mg/dL Urine Glucose (UA) Negative (NEGATIVE) mg/dL Assessment and Plan Assessment and Plan (1) Acute UTI: Assessment and Plan: Acute UTI. Patient is still symptomatic with abnormal UA. Ordered urine culture. Started on IV Levaquin. Follow-up urine cultures. (2) Leukocytosis: Assessment and Plan: Worsening leukocytosis likely multifactorial from UTI versus dehydration because of poor oral intake. Started on IV fluids, Levaquin. Follow-up blood and urine culture Qualifiers: Leukocytosis type: leukemoid reaction Qualified Code(s): D72.823 - Leukemoid reaction (3) Abdominal pain: Assessment and Plan: lower abdominal pain with loss of appetite, poor p.o. Likely secondary to UTI. Mildly elevated amylase levels. Normal lipase. Will recheck lipase level to ensure there is no concern for pancreatitis. There is no evidence of diverticulitis or pancreatitis on CT abdomen pelvis. Qualifiers: Abdominal location: lower abdomen, unspecified Qualified Code(s): R10.30 - Lower abdominal pain, unspecified (4) CKD (chronic kidney disease) stage 3, GFR 30-59 ml/min: Assessment and Plan: History of CKD stage III. Renal function is more or less at baseline. Monitor. Qualifiers: Chronic kidney disease stage 3 subtype: stage 3a (GFR 45-59) Qualified Code(s): N18.31 - Chronic kidney disease, stage 3a (5) HTN (hypertension): Assessment and Plan: Initially elevated likely because patient was anxious and upset about her current illness. Now at goal. Continue with home medications. Qualifiers: Hypertension type: primary hypertension Qualified Code(s): I10 - Essential (primary) hypertension (6) GERD (gastroesophageal reflux disease): Assessment and Plan: Continue with Protonix. Qualifiers: Esophagitis presence: without esophagitis Qualified Code(s): K21.9 - Gastro-esophageal reflux disease without esophagitis (7) H/O: CVA (cerebrovascular accident): Assessment and Plan: No focal deficit noted. Continue with aspirin, statin. She is also on Plavix.
[2024-04-29] MEDS: LACTATED RINGER'S SOLUTION 1,000 ML 125 ML IV (17:03)
[2024-04-29] MEDS: CEFTRIAXONE 1,000 MG in 0.9 % SODIUM CHLORIDE 50 ML 100 MG IV (17:14)
[2024-04-29] MEDS: ENOXAPARIN SODIUM 30 MG/0.3 ML SYRINGE SUBQ (21:56)
[2024-04-29] MEDS: METOPROLOL TARTRATE 25 MG TABLET PO (21:56)
[2024-04-30] VITALS (9 sets, daily range): BP systolic 139–165; BP diastolic 76–98; PULSE 66–89; TEMP 36.6–37.1; O2SAT 95–98
[2024-04-30] MEDS: LACTATED RINGER'S SOLUTION 1,000 ML 125 ML IV ×3 (01:25→16:10)
[2024-04-30 06:15] LABS: Basophils Percent Auto 0.2 % (0.2-2.0); Eosinophils Absolute Auto 0.1 10^3/uL (0.0-0.7); Eosinophils Percent Auto 1.1 % (0.9-7.0); Hematocrit 36.3 % (36.0-48.0); Immature Granulocytes Abs Auto 0.13 10^3/uL (0.00-0.03); Immature Granulocytes Pct Auto 1.1 % (0.0-0.5); Lymphocytes Absolute Auto 1.5 10^3/uL (1.2-3.8); Lymphocytes Percent Auto 13.3 % (20.5-60.0); Mean Corpuscular HGB Conc 30.3 g/dL (29.9-35.2); Mean Corpuscular Hemoglobin 32.2 pg (26.7-34.0); Mean Corpuscular Volume 106.1 fL (81.0-99.0); Mean Platelet Volume 9.8 fL (9.5-13.5); Monocytes Absolute Auto 1.1 10^3/uL (0.3-0.8); Monocytes Percent Auto 9.2 % (1.7-12.0); Neutrophils Absolute Auto 8.7 10^3/uL (1.4-6.5); Neutrophils Percent Auto 75.1 % (43.0-75.0); Platelet Count 206 10^3/uL (150-450); Red Blood Count 3.42 10^6/uL (4.20-5.40); Red Cell Distribution Width 13.3 % (11.0-15.0); White Blood Count 11.6 10^3/uL (4.0-11.0)
[2024-04-30 07:02] LABS: Alanine Aminotransferase 27 U/L (14-59); Albumin Globulin Ratio 0.7; Albumin Level 2.2 g/dL (3.4-5.0); Alkaline Phosphatase 109 U/L (46-116); Anion Gap 15.7; Aspartate Amino Transferase 16 U/L (15-37); Bilirubin Total 0.5 mg/dL (0.2-1.0); Calcium 8.3 mg/dL (8.5-10.1); Carbon Dioxide 20.1 mmol/L (21.0-32.0); Chloride 109 mmol/L (98-107); Estimated GFR (African America 38 (>=60); Estimated GFR (Non-African Ame 31 (>=60); Glucose 85 mg/dL (74-106); Potassium 4.8 mmol/L (3.5-5.1); Sodium 140 mmol/L (136-145); Total Protein 5.2 g/dL (6.4-8.2)
--- NOTE | 2024-04-30 07:39 | P.PN_ITS ---
Progress Note: Subjective Subjective Interval history: Abdominal pain persisting today. Was able to eat some last night. Nausea persisting as well. Exam Constitutional Vital Signs, click to edit/add: Last Vital Signs Temp 98.7 F 04/30/24 04:00 Pulse 75 04/30/24 04:00 Resp 20 04/30/24 04:00 BP 153/92 H 04/30/24 04:00 Pulse Ox 96 04/30/24 04:13 O2 Del Method Room Air 04/30/24 04:13 Documenting provider has reviewed patient's vital signs: yes Common normals: apparent distress (Mild to moderate painful distress) Chest Common normals: inspection of chest normal Respiratory Common normals: normal respiratory effort, no retractions, no use of accessory muscles and clear to auscultation bilaterally Cardio Common normals: regular rate, regular rhythm and no murmurs GI Common normals: Normal to inspection, nondistended, normoactive bowel sounds present and soft to palpation; tender Palpation: tender (mild rebound tenderness) Details: epigastric and LUQ Back & Pelvis General back: CVA tenderness CVA tenderness: left Progress Note: Objective Labs Labs: Short CBC 04/29/24 04/30/24 Range/Units 12:28 06:07 WBC 15.2 H 11.6 H (4.0-11.0) 10^3/uL Hgb 12.7 11.0 L (12.0-16.0) g/dL Hct 38.6 36.3 (36.0-48.0) % Plt Count 225 206 (150-450) 10^3/uL BMP 04/29/24 04/30/24 12:28 06:40 Sodium 137 140 Potassium 4.9 4.8 Chloride 107 109 H Carbon Dioxide 20.4 L 20.1 L BUN 63.0 H 48.0 H Creatinine 1.89 H 1.60 H Glucose 93 85 Calcium 8.5 8.3 L Liver Function 04/29/24 04/30/24 Range/Units 12:28 06:40 Total Bilirubin 0.4 0.5 (0.2-1.0) mg/dL AST 14 L 16 (15-37) U/L ALT 29 27 (14-59) U/L Alkaline Phosphatase 136 H 109 (46-116) U/L Albumin 2.7 L 2.2 L (3.4-5.0) g/dL Urine 04/29/24 Range/Units 13:24 Urine Color Lt. yellow (YELLOW) Urine Clarity Clear (CLEAR) Urine pH 5.5 (5.0-9.0) Ur Specific [place] 1.020 (1.005-1.025) Urine Protein Negative (NEG/TRACE) mg/dL Urine Glucose (UA) Negative (NEGATIVE) mg/dL Progress Note: A&P Assessment and Plan (1) Acute UTI: (2) Leukocytosis: Qualifiers: Leukocytosis type: leukemoid reaction Qualified Code(s): D72.823 - Leukemoid reaction (3) Abdominal pain: Qualifiers: Abdominal location: lower abdomen, unspecified Qualified Code(s): R10.30 - Lower abdominal pain, unspecified (4) CKD (chronic kidney disease) stage 3, GFR 30-59 ml/min: Qualifiers: Chronic kidney disease stage 3 subtype: stage 3a (GFR 45-59) Qualified Code(s): N18.31 - Chronic kidney disease, stage 3a (5) HTN (hypertension): Qualifiers: Hypertension type: primary hypertension Qualified Code(s): I10 - Essential (primary) hypertension (6) GERD (gastroesophageal reflux disease): Qualifiers: Esophagitis presence: without esophagitis Qualified Code(s): K21.9 - Gastro-esophageal reflux disease without esophagitis (7) H/O: CVA (cerebrovascular accident): Plan Admission findings: Uncontrolled hypertension, tachycardia, leukocytosis, left flank pain secondary to likely pyelonephritis, possible mild pancreatitis as well with elevation of amylase. This resulted in finding of sepsis. (Tachycardia, leukocytosis, source of infection being pyelonephritis) Pyelonephritis with leukocytosis:-Failed outpatient treatment. She has been on cefdinir. Started on Rocephin yesterday. Add Cipro since cefdinir would be si milar family to the Rocephin. She has tolerated this in the past despite the Levaquin allergy. CT scan did not confirm pyelonephritis but was a noncontrasted study Abdominal pain: Multifactorial. Possibly just related to the pyelonephritis. Amylase elevated today so mild pancreatitis is a possibility as well. Change patient to fat-free diet. Consider ultrasound of pancreas. CT without contrast did not demonstrate the pancreatitis but that would not be unusual in a noncontrasted study CKD (chronic kidney disease) stage 3, GFR 30-59 ml/min: Better today. Continue with IV hydration. HTN (hypertension): Better than admission. Continue with current medications, as needed hydralazine GERD (gastroesophageal reflux disease): Add IV Protonix. H/O: CVA (cerebrovascular accident): Continue with aspirin, statin, Plavix Iron deficiency anemia-check occult blood, hemoglobin is down somewhat today but may be dilutional Constipation-continue with lactulose Admission status: Patient initially placed in observation. Not improved significantly today. In fact abdominal tenderness seems worse than the exam as noted previously. Amylase is elevated today. Unable to discharge patient to home with worsening symptoms and failed outpatient treatment. Medically necessary treatment will span 2 midnights. Inpatient status ?
[2024-04-30 07:55] LABS: Amylase 123 U/L (25-115)
[2024-04-30] MEDS: ASPIRIN 81 MG TABLET.DR PO (08:43)
[2024-04-30] MEDS: METOPROLOL TARTRATE 25 MG TABLET PO ×2 (08:43→22:04)
[2024-04-30] MEDS: SUCRALFATE 1 GM TABLET PO ×4 (08:43→22:04)
[2024-04-30] MEDS: CLOPIDOGREL BISULFATE 75 MG TABLET PO (08:43)
[2024-04-30] MEDS: ATORVASTATIN CALCIUM 20 MG TABLET PO (08:43)
[2024-04-30] MEDS: CETIRIZINE HCL 10 MG TABLET PO (08:43)
[2024-04-30] MEDS: CIPROFLOXACIN IN 5 % DEXTROSE 400 MG/200 ML PREMIX 100 MG IV (09:36)
[2024-04-30] MEDS: PANTOPRAZOLE SODIUM 40 MG VIAL IV (09:36)
--- NOTE | 2024-04-30 10:17 | REH.PTDLY ---
Physical Therapy Daily Note PT Daily Note/Assess Start: 04/30/24 10:11 Freq: Status: Active Protocol: Document 04/30/24 10:11 ELIO (Rec: 04/30/24 10:17 ELIO [id number]) Physical Therapy Daily Note/Assessment Time In 09:02 Time Out 09:14 Subjective Pt in chair and agreeable to therapy. Therapeutic Exercise Minutes (minutes) 7 Therapeutic Exercise Units 1 Therapeutic Exercise Treatment Instructed in standing B LE exs 10x ea with B UE support. Exs included HR, mini squats, marching, hip abd, hip flex and HS curls. R hip discomfort at times as pt reports it has been giving out on her and she just had an injection in it, but that did not help. Therapeutic Activity Minutes (minutes) 5 Therapeutic Activity Units 0 Chair Transfer Ability Independent Therapeutic Activity Comments Gait training with pt pushing IV pole 140 feet SBA with slow but steady mookie. No LOB noted with gait. One instance of hip discomfort. Total Therapy Minutes 12 Total Physical Therapy Units 1 Daily Note Summary Progressed with gait distance and standing exs today for improved mobility and strength . 2 instances of R hip discomfort. Fatigue noted post rx. Pt will be safe to return home upon DC from PT aspect.
--- NOTE | 2024-04-30 11:12 | SWNOTE1 ---
SW met with pt to discuss dc needs. Pt lives at home with . She is independent and does not use any DME at home. Her son lives close by and was in room during assessment. Pt does not have any services coming in and she has no concerns about discharge at this time. SW to follow as needed. No anticipated discharge needs at this time. Important Message from Medicare reviewed and discussed with patient. Pt. verbalized understanding and signed the form. Original given to patient and copy placed in patient?s chart.
--- NOTE | 2024-04-30 11:13 | SWNOTE1 ---
SW did review therapy notes and no services were recommended at discharge at this time.
[2024-04-30] MEDS: CEFTRIAXONE 1,000 MG in 0.9 % SODIUM CHLORIDE 50 ML 100 MG IV (17:20)
--- NOTE | 2024-04-30 19:11 | DIETREC ---
Pt was admitted 04/29/24 w/dx UTI, sepsis, N/C. She states she hadn't eaten for ~1 week [employer] d/t not feeling well and nothing tasted good. PO intakes in-house are good; regular diet is appropriate as tolerated. Will continue to follow PRN.
[2024-04-30] MEDS: CIPROFLOXACIN IN 5 % DEXTROSE 400 MG/200 ML PREMIX 200 MG IV (22:04)
[2024-04-30] MEDS: ENOXAPARIN SODIUM 30 MG/0.3 ML SYRINGE SUBQ (22:04)
[2024-04-30] MEDS: ACETAMINOPHEN 500 MG TABLET 1000 MG PO (22:10)
[2024-05-01] VITALS: BP 131/77; PULSE 59; TEMP 36.7; O2SAT 96
[2024-05-01] MEDS: LACTATED RINGER'S SOLUTION 1,000 ML 125 ML IV (01:54)
[2024-05-01 06:30] VITALS: BP 169/108; PULSE 69; TEMP 36.8; O2SAT 97
[2024-05-01 06:33] VITALS: BP 169/108
[2024-05-01] MEDS: SUCRALFATE 1 GM TABLET PO (06:33)
[2024-05-01] MEDS: HYDRALAZINE HCL 20 MG/ML VIAL 10 MG IVP (06:33)
[2024-05-01 06:36] LABS: Basophils Percent Auto 0.1 % (0.2-2.0); Eosinophils Absolute Auto 0.1 10^3/uL (0.0-0.7); Eosinophils Percent Auto 1.2 % (0.9-7.0); Hematocrit 33.3 % (36.0-48.0); Hemoglobin 10.8 g/dL (12.0-16.0); Immature Granulocytes Abs Auto 0.12 10^3/uL (0.00-0.03); Immature Granulocytes Pct Auto 1.2 % (0.0-0.5); Lymphocytes Absolute Auto 1.7 10^3/uL (1.2-3.8); Lymphocytes Percent Auto 16.6 % (20.5-60.0); Mean Corpuscular HGB Conc 32.4 g/dL (29.9-35.2); Mean Corpuscular Volume 98.5 fL (81.0-99.0); Neutrophils Absolute Auto 7.1 10^3/uL (1.4-6.5); Neutrophils Percent Auto 70.9 % (43.0-75.0); Platelet Count 192 10^3/uL (150-450); Red Blood Count 3.38 10^6/uL (4.20-5.40); Red Cell Distribution Width 13.2 % (11.0-15.0)
[2024-05-01 06:47] LABS: Alanine Aminotransferase 25 U/L (14-59); Albumin Globulin Ratio 0.6; Alkaline Phosphatase 100 U/L (46-116); Anion Gap 12.1; Aspartate Amino Transferase 16 U/L (15-37); BUN Creatinine Ratio 23.5; Bilirubin Total 0.4 mg/dL (0.2-1.0); Calcium 8.5 mg/dL (8.5-10.1); Carbon Dioxide 24.1 mmol/L (21.0-32.0); Chloride 109 mmol/L (98-107); Estimated GFR (African America 33 (>=60); Estimated GFR (Non-African Ame 28 (>=60); Globulin 3.2 g/dL; Glucose 88 mg/dL (74-106); Potassium 5.2 mmol/L (3.5-5.1); Sodium 140 mmol/L (136-145); Total Protein 5.2 g/dL (6.4-8.2)
[2024-05-01 06:51] LABS: Amylase 118 U/L (25-115)
[2024-05-01 06:52] LABS: Ammonia 14 umol/L (11-32)
[2024-05-01 06:57] VITALS: BP 150/97
[2024-05-01 08:00] VITALS: BP 161/96; PULSE 83; TEMP 36.4; O2SAT 98
--- NOTE | 2024-05-01 08:17 | P.DS_ITS ---
DS: Providers Provider Date of admission: 04/30/24 07:43 Primary care physician: Alvaro Harp MD Consults: 04/29/24 14:32 Occupational Therapy Eval and Treat Routine Reason for consultation: Ambulatory dysfunction/weakness Physical Therapy Eval and Treat Routine Reason for consultation: Ambulatory dysfunction/weakness DS: Diagnosis Discharge Diagnosis (1) Acute UTI: (2) Leukocytosis: Qualifiers: Leukocytosis type: leukemoid reaction Qualified Code(s): D72.823 - Leukemoid reaction (3) Abdominal pain: Qualifiers: Abdominal location: lower abdomen, unspecified Qualified Code(s): R10.30 - Lower abdominal pain, unspecified (4) CKD (chronic kidney disease) stage 3, GFR 30-59 ml/min: Qualifiers: Chronic kidney disease stage 3 subtype: stage 3a (GFR 45-59) Qualified Code(s): N18.31 - Chronic kidney disease, stage 3a (5) HTN (hypertension): Qualifiers: Hypertension type: primary hypertension Qualified Code(s): I10 - Essential (primary) hypertension (6) GERD (gastroesophageal reflux disease): Qualifiers: Esophagitis presence: without esophagitis Qualified Code(s): K21.9 - Gastro-esophageal reflux disease without esophagitis (7) H/O: CVA (cerebrovascular accident): Plan Admission findings: Uncontrolled hypertension, tachycardia, leukocytosis, left flank pain secondary to likely pyelonephritis, possible mild pancreatitis as well with elevation of amylase. This resulted in finding of sepsis. (Tachycardia, leukocytosis, source of infection being pyelonephritis) Pyelonephritis with leukocytosis:-Failed outpatient treatment. Improving at the time of discharge Abdominal pain: Multifactorial. Possibly just related to the pyelonephritis. Amylase elevated today so mild pancreatitis is a possibility as well. Improving at the time of discharge CKD (chronic kidney disease) stage 3, GFR 30-59 ml/min: Stable at the time of discharge HTN (hypertension): Better than admission. Elevated at the time of discharge will follow as an outpatient GERD (gastroesophageal reflux disease): Stable at the time of discharge H/O: CVA (cerebrovascular accident): Stable at the time of discharge Iron deficiency anemia-check occult blood, hemoglobin is down somewhat today but may be dilutional Constipation-continue with lactulose Admission status: Patient initially placed in observation. Not improved significantly today. In fact abdominal tenderness seems worse than the exam as noted previously. Amylase is elevated today. Unable to discharge patient to home with worsening symptoms and failed outpatient treatment. Medically necessary treatment will span 2 midnights. Inpatient status ? ? DS: Summary Hospital Course Hospital Course: Patient for about a week prior to admission had been treated as an outpatient for acute UTI and abdominal pain with increasing dehydration. Symptoms became worse and presented to the emergency room. Found to have mild acute pancreatitis as well as the failed outpatient treatment of any acute UTI. Culture still pending but is a gram-negative yohana. She was initially placed on Rocephin but she had already been on cefdinir. Changed her to ciprofloxacin, despite Levaquin allergy, she tolerated the ciprofloxacin. He does feel improved this morning. Her amylase is improved this morning. She is able to eat which she had not done for 3 days prior to admission. This point she is overall medically improved. Not back to baseline, she would prefer to be discharged to home and then follow-up with me closely in the office tomorrow. Medications see list. Follow-up with me in the office tomorrow. Status at Discharge Functional status at discharge: independent ambulation Overall status at discharge: patient is not back to baseline Time Spent with Patient Time attestation: Total time spent providing and/or coordinating discharge services: Time spent: greater than 30 minutes Exam Constitutional Vital Signs, click to edit/add: Last Vital Signs Temp 98.3 F 05/01/24 06:30 Pulse 69 05/01/24 06:30 Resp 18 05/01/24 06:30 BP 150/97 H 05/01/24 06:57 Pulse Ox 97 05/01/24 06:30 O2 Del Method Room Air 05/01/24 06:30 Documenting provider has reviewed patient's vital signs: yes Common normals: apparent distress (Mild to moderate painful distress) Chest Common normals: inspection of chest normal Respiratory Common normals: normal respiratory effort, no retractions, no use of accessory muscles and clear to auscultation bilaterally Cardio Common normals: regular rate, regular rhythm and no murmurs GI Common normals: Normal to inspection, nondistended, normoactive bowel sounds present and soft to palpation; tender (Minimal tenderness) Palpation: tender (Minimal tenderness epigastric) Details: epigastric and LUQ Back & Pelvis General back: CVA tenderness CVA tenderness: left DS: Data Data Completed and Pending Labs on day of discharge: Labs from last 24 hours 05/01/24 06:12 WBC 10.0 RBC 3.38 L Hgb 10.8 L Hct 33.3 L MCV 98.5 MCH 32.0 MCHC 32.4 RDW 13.2 Plt Count 192 MPV 10.0 Neut % (Auto) 70.9 Lymph % (Auto) 16.6 L [place] % (Auto) 10.0 Eos % (Auto) 1.2 Baso % (Auto) 0.1 L Neut # (Auto) 7.1 H Lymph # (Auto) 1.7 [place] # (Auto) 1.0 H Eos # (Auto) 0.1 Baso # (Auto) 0.0 Abs Immat Gran (auto) 0.12 H Imm/Tot Granulo (auto) 1.2 H Sodium 140 Potassium 5.2 H Chloride 109 H Carbon Dioxide 24.1 Anion Gap 12.1 BUN 42.0 H Creatinine 1.79 H Est GFR ( Amer) 33 L Est GFR (Non-Af Amer) 28 L BUN/Creatinine Ratio 23.5 Glucose 88 Calcium 8.5 Total Bilirubin 0.4 AST 16 ALT 25 Alkaline Phosphatase 100 Ammonia 14 Total Protein 5.2 L Albumin 2.0 L Globulin 3.2 Albumin/Globulin Ratio 0.6 Amylase 118 H Lipase 53.0 Preliminary micro results at discharge 04/29/24 13:24 Urine Culture - Preliminary Urine,Clean Catch Gram negative yohana Discharge Plan Discharge Disposition: Home, Self-Care Condition: Fair Discharge Medications: New ciprofloxacin HCl [Cipro] 500 mg tablet 500 mg PO BID Qty: 20 0RF Rx Instructions: Tolerated in the past despite levofloxacin allergy Continued aspirin 81 mg tablet,delayed release (DR/EC) 81 mg PO DAILY atorvastatin 20 mg tablet 20 mg PO DAILY sucralfate [Carafate] 1 gram tablet 1 g PO ACHS cetirizine 10 mg capsule 10 mg PO DAILY clopidogrel [Plavix] 75 mg tablet 75 mg PO DAILY pantoprazole [Protonix] 40 mg tablet,delayed release (DR/EC) 40 mg PO QPM lactulose 10 gram/15 mL solution 30 ml PO BID metoprolol tartrate 25 mg tablet 25 mg PO BID ondansetron 4 mg tablet,disintegrating 4 mg PO DAILY PRN (Reason: nausea and vomiting) Discontinued cefdinir 300 mg capsule 600 mg PO DAILY Rx Instructions: 04/25/24-05/04/24 Print Language: Vietnamese Forms: Portal Instructions
[2024-05-01] MEDS: CIPROFLOXACIN IN 5 % DEXTROSE 400 MG/200 ML PREMIX 200 MG IV (09:30)
[2024-05-01] MEDS: CETIRIZINE HCL 10 MG TABLET PO (09:31)
[2024-05-01] MEDS: CLOPIDOGREL BISULFATE 75 MG TABLET PO (09:31)
[2024-05-01] MEDS: ASPIRIN 81 MG TABLET.DR PO (09:31)
[2024-05-01] MEDS: ATORVASTATIN CALCIUM 20 MG TABLET PO (09:31)
[2024-05-01] MEDS: METOPROLOL TARTRATE 25 MG TABLET PO (09:31)
[2024-05-01] MEDS: PANTOPRAZOLE SODIUM 40 MG VIAL IV (09:31)
--- NOTE | 2024-05-01 10:12 | REH.PTDLY ---
Physical Therapy Daily Note PT Daily Note/Assess Start: 04/30/24 10:11 Freq: Status: Active Protocol: Document 05/01/24 10:10 ELIO (Rec: 05/01/24 10:11 ELIO [id number]) Visit Not Completed Visit Not Completed Due to: Pt refusing Other Reason Visit Not Completed Pt leaving to go home as soon as antibiotic is complete per nursing and pt. Pt declines rx , reports she has been getting up and down to the bathroom plenty and feeling fine. Physical Therapy Daily Note/Assessment Time In 10:00 Time Out 10:05
--- NOTE | 2024-05-02 14:52 | CM.DCFOLLOWU ---
1st attempt 05/02/24
--- NOTE | 2024-05-05 15:15 | CM.DCFOLLOWU ---
2nd attempt 05/05/24
--- NOTE | 2024-05-06 13:21 | CM.DCFOLLOWU ---
Person spoke with: patient How are you feeling? well, said she is not getting around too well, but is at home with her and she has a walker if needed How is your pain? no pain Did you understand your discharge instructions? yes Do you have any questions about your discharge instructions? no Were you given any prescriptions at discharge? yes Were you able to get your prescriptions filled? yes Do you understand how to take your medications as ordered? yes Do you have any questions about your follow up appointment and do you plan to keep your follow up appointment? no questions, already had follow up with Dr. Harp Is there anything else that you would like to discuss? no Questions/Comments/Concerns/Other: none
== END 2024-05-01 11:00 | disposition home or self-care (01) | DRG 871 ==
LOC: ER 14:28 → MS 14:39
PROVIDERS: Internal Medicine; Admitting Provider Family Medicine; Emergency Provider Emergency Medicine; PCP Family Medicine; Visit Provider Family Medicine
DX: A41.50 Gram-negative sepsis, unspecified (principal); K85.90 Acute pancreatitis without necrosis or infection, unspecified; N10 Acute pyelonephritis; I50.30 Unspecified diastolic (congestive) heart failure; I13.0 Hypertensive heart and chronic kidney disease with heart failure and stage 1 through stage 4 chronic kidney disease, or unspecified chronic kidney disease; D72.829 Elevated white blood cell count, unspecified; R10.9 Unspecified abdominal pain; R10.30 Lower abdominal pain, unspecified; N18.31 Chronic kidney disease, stage 3a; K21.9 Gastro-esophageal reflux disease without esophagitis; Z86.73 Personal history of transient ischemic attack (TIA), and cerebral infarction without residual deficits; D50.9 Iron deficiency anemia, unspecified; K59.00 Constipation, unspecified; R53.83 Other fatigue; R11.2 Nausea with vomiting, unspecified; M81.0 Age-related osteoporosis without current pathological fracture; M19.90 Unspecified osteoarthritis, unspecified site; M79.7 Fibromyalgia; R73.03 Prediabetes; Z98.890 Other specified postprocedural states; Z87.442 Personal history of urinary calculi; Z90.710 Acquired absence of both cervix and uterus; Z98.1 Arthrodesis status; Z90.49 Acquired absence of other specified parts of digestive tract; Z79.82 Long term (current) use of aspirin; Z79.02 Long term (current) use of antithrombotics/antiplatelets; Z79.899 Other long term (current) drug therapy
CPT/HCPCS: 36415; 71045; 74176; 80053; 81001; 82140; 82150; 83605; 83690; 83880; 84439; 84443; 84481; 84484; 85025; 85652; 86140; 87086; 87150; 87186; 87811; 93005; 94761; 96365; 96366; 96367; 96372; 96375; 96376; 97110; 97162; 97165; 99285; G0328; G0378; J0360; J0696; J0744; J1650

== ENCOUNTER 2024-05-28 08:32 | Outpatient (OUT) | payer MEDICARE, SELFPAY ==
--- OUTSIDE RECORDS SUMMARY | 2024-05-28 08:56 | XMS_ITS | CCD ---
Author Organization [facility] Care Team Providers Care Scratcher Name Role Phone PHYSICIAN, DEFAULT Admitting Unavailable [...] Unavailable HOY ., DR BLANKENSHIP Admmilton Unavailable DONEGAL, DR GODWIN Cardona Consulting Unavailable HOY ., [...] Care Unavailable MD Ben Sanchez Attending Provider MD Krzysztof Harp Primary Care Provider [phone] Ben Sanchez Admitting Unavailable Ben Sanchez Attending Unavailable Krzysztof Harp Primary Care Unavailable Ben Sanchez Admitting Unavailable Ben Sanchez Attending Unavailable Krzysztof Harp Primary Care Unavailable DARSHAN HERNANDEZ Attending Unavailable CLEVE NOEL Attending Unavailable CLEVE NOEL Attending Unavailable Allergies Allergy Classification Reported Allergen(s) Allergy Type Date of Onset Reaction(s) Facility (6 sources) Morphine; 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: [MORPHINE] Drug Allergy 7 Vomiting [facility] Repository (3 sources) NSAIDs; 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: [NSAIDS (NON-STEROIDAL ANTI-INFLAMMATOR Y DRUG)] Drug allergy (disorder) 9 [facility] Repository (1 source) Penicillin Drug Allergy 9 [facility] Repository (1 source) predniSONE Drug Allergy 9 [facility] Repository (2 sources) Iodinated Contrast- Oral and IV Dye Drug allergy (disorder) 5 [facility] Repository (7 sources) Penicillins; 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: [PENICILLINS] Propensity to adverse reactions to drug (disorder) 5 Rash [facility] Repository (5 sources) IODINATED CONTRAST MEDIA; 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: [IODINATED CONTRAST MEDIA] Propensity to adverse reactions to drug (disorder) 3 Anaphylaxis [facility] Repository (1 source) levoFLOXacin Drug Allergy 3 [facility] (1 source) meloxicam Drug Allergy 3 [facility] (1 source) Contrast media; 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: [DYE] Propensity to adverse reactions to drug (disorder) 7 [facility] Repository (1 source) MORPHOLINE ANALOGUES; 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: [MORPHOLINE ANALOGUES] Propensity to adverse reactions to drug (disorder) 7 [facility] Repository (4 sources) NSAIDS (Non-Steroidal Anti-Inflamma; 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: [NSAIDS (Non-Steroidal Anti-Inflamma] Propensity to adverse reactions 4 Stomach [facility] (1 source) Morphine Drug Allergy 4 [facility] Medications Current Medications Medication Drug Class(es) [...] Onset: 01-17-2023 Chronic Other aftercare (2 sources) jail (current) use of aspirin; 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 B1, Whole Blood 118.1 nmol/L Normal 66.5-200.0 [facility] Comment on above: Performed By: #### C BC #### [facility] [address] [place] [address] Dr. Ekta Funk BNPon 01-10-2023 Natriuretic peptide B (Bld) [Mass/Vol] 980.0 pg/mL Critically high <=900.0 [facility] Comment on above: Performed By: #### C VDTBH #### [facility] [address] [place] [address] Dr. Ekta Funk CBC AUTO DIFFon 01-10-2023 BASO # 0.1 103/ul Normal 0.0-0.1 [facility] Comment on above: Performed By: #### C MP #### [facility] [address] [place] [address] Dr. Ekta Funk Basophils/100 WBC (Bld) 1.0 % Normal 0.2-2.0 [facility] Comment on above: Performed By: #### C MP #### [facility] [address] [place] [address] Dr. Ekta Funk EO # 0.4 103/ul Normal 0.0-0.7 [facility] Comment on above: Performed By: #### C MP #### [facility] [address] [place] [address] Dr. Ekta Funk Eosinophils/100 WBC (Bld) 3.7 % Normal 0.9-7.0 [facility] Comment on above: Performed By: #### C MP #### [facility] [address] [place] [address] Dr. Ekta Funk Erythrocyte distribution width (RBC) [Ratio] 13.2 % Normal 11.0-15.0 [facility] Comment on above: Performed By: #### C MP #### [facility] [address] [place] [address] Dr. Ekta Funk Hematocrit (Bld) [Volume fraction] 35.1 % Critically low 36.0-48.0 [facility] Comment on above: Performed By: #### C MP #### [facility] [address] [place] [address] Dr. Ekta Funk Hemoglobin (Bld) [Mass/Vol] 11.3 g/dL Critically low 12.0-16.0 [facility] Comment on above: Performed By: #### C MP #### [facility] [address] [place] [address] Dr. Ekta Funk IG # 0.04 10e3/ul Critically high 0.00-0.03 [facility] Comment on above: Performed By: #### C MP #### [facility] [address] [place] [address] Dr. Ekta Funk IG % 0.4 % Normal 0.0-0.5 [facility] Comment on above: Performed By: #### C MP #### [facility] [address] [place] [address] Dr. Ekta Funk LYMPH # 2.0 103/ul Normal 1.2-3.8 [facility] Comment on above: Performed By: #### C MP #### [facility] [address] [place] [address] Dr. Ekta Funk Lymphocytes/100 WBC (Bld) 20.8 % Normal 20.5-60.0 [facility] Comment on above: Performed By: #### C MP #### [facility] [address] [place] [address] Dr. Ekta Funk MANUAL DIFF REQ NO Normal [facility] Comment on above: Performed By: #### C MP #### [facility] [address] [address] [address] Ekta Funk MCH (RBC) [Entitic mass] 32.3 pg Normal 26.7-34.0 [facility] Comment on above: Performed By: #### C MP #### [facility] [address] [address] [address] Ekta Funk MCHC (RBC) [Mass/Vol] 32.2 g/dL Normal 29.9-35.2 [facility] Comment on above: Performed By: #### C MP #### [facility] [address] [place] [address] Dr. Ekta Funk MCV (RBC) [Entitic vol] 100.3 fL Critically high 81.0-99.0 [facility] Comment on above: Performed By: #### C MP #### [facility] [address] [place] [address] Dr. Ekta Funk MONO # 0.8 103/ul Normal 0.3-0.8 [facility] Comment on above: Performed By: #### C MP #### [facility] [address] [place] [address] Dr. Ekta Funk Monocytes/100 WBC (Bld) 7.9 % Normal 1.7-12.0 [facility] Comment on above: Performed By: #### C MP #### [facility] [address] [place] [address] Dr. Ekta Funk NEUT # 6.4 103/ul Normal 1.4-6.5 [facility] Comment on above: Performed By: #### C MP #### [facility] [address] [place] [address] Dr. Ekta Funk Neutrophils/100 WBC (Bld) 66.2 % Normal 43.0-75.0 [facility] Comment on above: Performed By: #### C MP #### [facility] [address] [place] [address] Dr. Ekta Funk Platelet mean volume (Bld) [Entitic vol] 9.6 fL Normal 9.5-13.5 [facility] Comment on above: Performed By: #### C MP #### [facility] [address] [address] [address] Ekta Funk PLT 255 103/ul Normal 150-450 [facility] Comment on above: Performed By: #### C MP #### [facility] [address] [address] [address] Ekta Funk RBC 3.50 106/ul Critically low 4.20-5.40 [facility] Comment on above: Performed By: #### C MP #### [facility] [address] [address] [address] Ekta Funk WBC 9.7 103/ul Normal 4.0-11.0 [facility] Comment on above: Performed By: #### C MP #### [facility] [address] [place] [address] Dr. Ekta Funk CRPon 01-10-2023 CRP [Mass/Vol] mg/L Normal <=1.0 [facility] Comment on above: Performed By: #### C BC #### [facility] [address] [place] [address] Dr. Ekta Funk FREE THYROXINE INDEX T7on FTI 2.62 Normal 1.30-4.50 [facility] Comment on above: Performed By: #### C BC #### [facility] [address] [address] [address] Ekta Funk T3U 32.0 % Normal 30.0-39.0 [facility] Comment on above: Performed By: #### C BC #### [facility] [address] [address] [address] Ekta Funk T4 [Mass/Vol] 8.20 ug/dL Normal 4.80-13.90 [facility] Comment on above: Performed By: #### C BC #### [facility] [address] [address] [address] Ekta Funk IRONon 01-10-2023 Iron [Mass/Vol] 61.0 ug/dL Normal 50.0-170.0 [facility] Comment on above: Performed By: #### B 12FOL, VITAD, IRON #### [facility] [address] [place] [address] Dr. Ekta Funk PROF 14(COMP METB)on 023 Albumin [Mass/Vol] 2.9 g/dL Critically low 3.4-5.0 [facility] Comment on above: Performed By: #### C VDTBH #### [facility] [address] [place] [address] Dr. Ekta Funk Albumin/Globulin [Mass ratio] 0.6 {ratio} Normal [facility] Comment on above: Performed By: #### C VDTBH #### [facility] [address] [place] [address] Dr. Ekta Funk ALP [Catalytic activity/Vol] 101 U/L Normal 46-116 [facility] Comment on above: Performed By: #### C VDTBH #### [facility] [address] [place] [address] Dr. Ekta Funk ALT [Catalytic activity/Vol] 16 U/L Normal 14-59 [facility] Comment on above: Performed By: #### C VDTBH #### [facility] [address] [place] [address] Dr. Ekta Funk Anion gap [Moles/Vol] 14.6 mmol/L Normal [facility] Comment on above: Performed By: #### C VDTBH #### [facility] [address] [place] [address] Dr. Ekta Funk AST [Catalytic activity/Vol] 15 U/L Normal 15-37 [facility] Comment on above: Performed By: #### C VDTBH #### [facility] [address] [place] [address] Dr. Ekta Funk Bilirubin [Mass/Vol] 0.4 mg/dL Normal 0.2-1.0 [facility] Comment on above: Performed By: #### C VDTBH #### [facility] [address] [place] [address] Dr. Ekta Funk Calcium [Mass/Vol] 9.2 mg/dL Normal 8.5-10.1 [facility] Comment on above: Performed By: #### C VDTBH #### [facility] [address] [place] [address] Dr. Ekta Funk Chloride [Moles/Vol] 107 mmol/L Normal 98-107 [facility] Comment on above: Performed By: #### C VDTBH #### [facility] [address] [place] [address] Dr. Ekta Funk CO2 [Moles/Vol] 24.4 mmol/L Normal 21.0-32.0 [facility] Comment on above: Performed By: #### C VDTBH #### [facility] [address] [place] [address] Dr. Ekta Funk Creatinine [Mass/Vol] 2.02 mg/dL Critically high 0.55-1.02 [facility] Comment on above: Performed By: #### C VDTBH #### [facility] [address] [place] [address] Dr. Ekta Funk EGFR-AF QATARI 29 mL/min/1.73m2 Critically low >=60 [facility] Comment on above: Performed By: #### C VDTBH #### [facility] [address] [place] [address] Dr. Ekta Funk EGFR-NON AF QATARI 24 mL/min/1.73m2 Critically low >=60 [facility] Comment on above: Performed By: #### C VDTBH #### [facility] [address] [place] [address] Dr. Ekta Funk Globulin (S) [Mass/Vol] 4.5 g/dL Normal [facility] Comment on above: Performed By: #### C VDTBH #### [facility] [address] [place] [address] Dr. Ekta Funk Glucose [Mass/Vol] 103 mg/dL Normal 74-106 [facility] Comment on above: Performed By: #### C VDTBH #### [facility] [address] [place] [address] Dr. Ekta Funk Potassium [Moles/Vol] 5.0 mmol/L Normal 3.5-5.1 [facility] Comment on above: Performed By: #### C VDTBH #### [facility] [address] [place] [address] Dr. Ekta Funk Protein [Mass/Vol] 7.4 g/dL Normal 6.4-8.2 [facility] Comment on above: Performed By: #### C VDTBH #### [facility] [address] [place] [address] Dr. Ekta Funk Sodium [Moles/Vol] 141 mmol/L Normal 136-145 [facility] Comment on above: Performed By: #### C VDTBH #### [facility] [address] [place] [address] Dr. Ekta Funk Urea nitrogen [Mass/Vol] 23.0 mg/dL Critically high 7.0-18.0 [facility] Comment on above: Performed By: #### C VDTBH #### [facility] [address] [place] [address] Dr. Ekta Funk Urea nitrogen/Creatinine [Mass ratio] 11.4 mg/mg Normal [facility] Comment on above: Performed By: #### C VDTBH #### [facility] [address] [place] [address] Dr. Ekta Funk TSHon 01-10-2023 TSH 1.793 uIU/mL Normal 0.358-3.740 [facility] Comment on above: Performed By: #### C VDTBH #### [facility] [address] [place] [address] Dr. Ekta Funk VIT B12 AND FOLATEon 023 Cobalamin (Vitamin B12) [Mass/Vol] 175.0 pg/mL Critically low 193.0-986.0 [facility] Comment on above: Performed By: #### B 12FOL, VITAD, IRON #### [facility] [address] [place] [address] Dr. Ekta Funk FOLATE 10.30 ng/mL Normal 8.60-58.90 [facility] Comment on above: Performed By: #### B 12FOL, VITAD, IRON #### [facility] [address] [address] [address] Ekta Funk VITAMIN D 25 OHon 01-10-2023 VIT D 25-OH 24.0 ng/mL Normal [facility] Comment on above: Performed By: #### B 12FOL, VITAD, IRON #### [facility] [address] [address] [address] Ekta Funk VIT D RANGES SEE BELOW Normal [facility] Comment on above: Result Comment: <20 ng/mL Vit D deficient 20 - <30 ng/mL Vit D insufficient 30 - 100 ng/mL Vit D sufficient >100 ng/mL Potential Toxicity Performed By: #### B 12FOL, VITAD, IRON #### [facility] [address] [address] [address] Ekta Funk Office Visiton 12-15-2022 Follow-up visit [id number] Sheila Mac 1950 F Date Provider Department Center 12/15/2022 [id number] RIVERA [facility] No family history on file Level of Service:85776 AL OFFICE/OUTPATIENT ESTABLISHED MOD [facility] 30-39 MIN Reason for Visit and Comments: Follow-up [050362] - Is here f/u stress test pt states she had Bruises all over both legs symptoms stated a week ago also stated legs are swollen and burning Normal [facility] NM STRESS/REST MULTIon 12-05 NM STRESS/REST MULTI Patient: SHEILA MAC Exam Date: 12/05/2022 : 1950 Gender:F Ordering : DR KRZYSZTOF HARP . Admission #: [id number] Family : Order #: [id number] CLICK HERE TO VIEW EXAM RADIOLOGY REPORT [...] Marie M.D. on 12/06/2022 at 07:26 Normal [facility] ECHOCARDIO M/2D COMPLETEon 0 11-27-2022 ECHOCARDIO M/2D COMPLETE Patient: SHEILA MAC Exam Date: 11/27/2022 : 1950 Gender:F Ordering : DR KRZYSZTOF HARP . Admission #: [id number] Family : Order #: [id number] CLICK HERE TO VIEW EXAM ECHOCARDIOGRAM REPORT [...] Pressure: 53.33 ml, 53.33 ml Dictated by: oBng Gaspar M.D. on 11/27/2022 at 14:35 Approved by: Bong Gaspar M.D. on 11/27/2022 at 14:39 Normal [facility] CBC AUTO DIFFon 11-26-2022 BASO # 0.0 103/ul Normal 0.0-0.1 [facility] Comment on above: Performed By: #### I NSULIN #### [facility] [address] [place] [address] Dr. Ekta Funk Basophils/100 WBC (Bld) 0.6 % Normal 0.2-2.0 [facility] Comment on above: Performed By: #### I NSULIN #### [facility] [address] [place] [address] Dr. Ekta Funk EO # 0.3 103/ul Normal 0.0-0.7 [facility] Comment on above: Performed By: #### I NSULIN #### [facility] [address] [place] [address] Dr. Ekta Funk Eosinophils/100 WBC (Bld) 4.8 % Normal 0.9-7.0 [facility] Comment on above: Performed By: #### I NSULIN #### [facility] [address] [place] [address] Dr. Ekta Funk Erythrocyte distribution width (RBC) [Ratio] 13.3 % Normal 11.0-15.0 [facility] Comment on above: Performed By: #### I NSULIN #### [facility] [address] [place] [address] Dr. Ekta Funk Hematocrit (Bld) [Volume fraction] 29.1 % Critically low 36.0-48.0 [facility] Comment on above: Performed By: #### I NSULIN #### [facility] [address] [place] [address] Dr. Ekta Funk Hemoglobin (Bld) [Mass/Vol] 9.5 g/dL Critically low 12.0-16.0 [facility] Comment on above: Performed By: #### I NSULIN #### [facility] [address] [place] [address] Dr. Ekta Funk IG # 0.07 10e3/ul Critically high 0.00-0.03 [facility] Comment on above: Performed By: #### I NSULIN #### [facility] [address] [place] [address] Dr. Ekta Funk IG % 1.0 % Critically high 0.0-0.5 [facility] Comment on above: Performed By: #### I NSULIN #### [facility] [address] [place] [address] Dr. Ekta Funk LYMPH # 1.2 103/ul Normal 1.2-3.8 [facility] Comment on above: Performed By: #### I NSULIN #### [facility] [address] [place] [address] Dr. Ekta Funk Lymphocytes/100 WBC (Bld) 17.2 % Critically low 20.5-60.0 [facility] Comment on above: Performed By: #### I NSULIN #### [facility] [address] [place] [address] Dr. Ekta Funk MANUAL DIFF REQ NO Normal [facility] Comment on above: Performed By: #### I NSULIN #### [facility] [address] [place] [address] Dr. Ekta Funk MCH (RBC) [Entitic mass] 31.7 pg Normal 26.7-34.0 [facility] Comment on above: Performed By: #### I NSULIN #### [facility] [address] [place] [address] Dr. Ekta Funk MCHC (RBC) [Mass/Vol] 32.6 g/dL Normal 29.9-35.2 [facility] Comment on above: Performed By: #### I NSULIN #### [facility] [address] [place] [address] Dr. Ekta Funk MCV (RBC) [Entitic vol] 97.0 fL Normal 81.0-99.0 [facility] Comment on above: Performed By: #### I NSULIN #### [facility] [address] [place] [address] Dr. Ekta Funk MONO # 0.8 103/ul Normal 0.3-0.8 [facility] Comment on above: Performed By: #### I NSULIN #### [facility] [address] [place] [address] Dr. Ekta Funk Monocytes/100 WBC (Bld) 11.1 % Normal 1.7-12.0 [facility] Comment on above: Performed By: #### I NSULIN #### [facility] [address] [place] [address] Dr. Ekta Funk NEUT # 4.5 103/ul Normal 1.4-6.5 [facility] Comment on above: Performed By: #### I NSULIN #### [facility] [address] [place] [address] Dr. Ekta Funk Neutrophils/100 WBC (Bld) 65.3 % Normal 43.0-75.0 [facility] Comment on above: Performed By: #### I NSULIN #### [facility] [address] [place] [address] Dr. Ekta Funk Platelet mean volume (Bld) [Entitic vol] 9.4 fL Critically low 9.5-13.5 [facility] Comment on above: Performed By: #### I NSULIN #### [facility] [address] [place] [address] Dr. Ekta Funk PLT 263 103/ul Normal 150-450 [facility] Comment on above: Performed By: #### I NSULIN #### [facility] [address] [place] [address] Dr. Ekta Funk RBC 3.00 106/ul Critically low 4.20-5.40 [facility] Comment on above: Performed By: #### I NSULIN #### [facility] [address] [place] [address] Dr. Ekta Funk WBC 6.9 103/ul Normal 4.0-11.0 [facility] Comment on above: Performed By: #### I NSULIN #### [facility] [address] [place] [address] Dr. Ekta Funk PROF 14(COMP METB)on 023 Albumin [Mass/Vol] 2.2 g/dL Critically low 3.4-5.0 [facility] Comment on above: Performed By: #### C MP #### [facility] [address] [place] [address] Dr. Ekta Funk Albumin/Globulin [Mass ratio] 0.6 {ratio} Normal [facility] Comment on above: Performed By: #### C MP #### [facility] [address] [place] [address] Dr. Ekta Funk ALP [Catalytic activity/Vol] 82 U/L Normal 46-116 [facility] Comment on above: Performed By: #### C MP #### [facility] [address] [place] [address] Dr. Ekta Funk ALT [Catalytic activity/Vol] 13 U/L Critically low 14-59 [facility] Comment on above: Performed By: #### C MP #### [facility] [address] [place] [address] Dr. Ekta Funk Anion gap [Moles/Vol] 14.0 mmol/L Normal [facility] Comment on above: Performed By: #### C MP #### [facility] [address] [place] [address] Dr. Ekta Funk AST [Catalytic activity/Vol] 18 U/L Normal 15-37 [facility] Comment on above: Performed By: #### C MP #### [facility] [address] [place] [address] Dr. Ekta Funk Bilirubin [Mass/Vol] 0.4 mg/dL Normal 0.2-1.0 [facility] Comment on above: Performed By: #### C MP #### [facility] [address] [address] [address] Ekta Funk Calcium [Mass/Vol] 8.6 mg/dL Normal 8.5-10.1 [facility] Comment on above: Performed By: #### C MP #### [facility] [address] [address] [address] Ekta Funk Chloride [Moles/Vol] 108 mmol/L Critically high 98-107 [facility] Comment on above: Performed By: #### C MP #### [facility] [address] [address] [address] Ekta Funk CO2 [Moles/Vol] 19.6 mmol/L Critically low 21.0-32.0 [facility] Comment on above: Performed By: #### C MP #### [facility] [address] [address] [address] Ekta Funk Creatinine [Mass/Vol] 1.70 mg/dL Critically high 0.55-1.02 [facility] Comment on above: Performed By: #### C MP #### [facility] [address] [address] [address] Ekta Funk EGFR-AF QATARI 36 mL/min/1.73m2 Critically low >=60 [facility] Comment on above: Performed By: #### C MP #### [facility] [address] [address] [address] Ekta Funk EGFR-NON AF QATARI 29 mL/min/1.73m2 Critically low >=60 [facility] Comment on above: Performed By: #### C MP #### [facility] [address] [address] [address] Ekta Funk Globulin (S) [Mass/Vol] 3.6 g/dL Normal [facility] Comment on above: Performed By: #### C MP #### [facility] [address] [address] [address] Ekta Funk Glucose [Mass/Vol] 103 mg/dL Normal 74-106 [facility] Comment on above: Performed By: #### C MP #### [facility] [address] [address] [address] Ekta Funk Potassium [Moles/Vol] 4.6 mmol/L Normal 3.5-5.1 [facility] Comment on above: Performed By: #### C MP #### [facility] [address] [address] [address] Ekta Funk Protein [Mass/Vol] 5.8 g/dL Critically low 6.4-8.2 [facility] Comment on above: Performed By: #### C MP #### [facility] [address] [address] [address] Ekta Funk Sodium [Moles/Vol] 137 mmol/L Normal 136-145 [facility] Comment on above: Performed By: #### C MP #### [facility] [address] [address] [address] Ekta Funk Urea nitrogen [Mass/Vol] 26.0 mg/dL Critically high 7.0-18.0 [facility] Comment on above: Performed By: #### C MP #### [facility] [address] [address] [address] Ekta Funk Urea nitrogen/Creatinine [Mass ratio] 15.3 mg/mg Normal [facility] Comment on above: Performed By: #### C MP #### [facility] [address] [place] [address] Dr. Ekta Funk CBC AUTO DIFFon 11-25-2022 BASO # 0.1 103/ul Normal 0.0-0.1 [facility] Comment on above: Performed By: #### C BC #### [facility] [address] [address] [address] Ekta Funk Basophils/100 WBC (Bld) 0.7 % Normal 0.2-2.0 [facility] Comment on above: Performed By: #### C BC #### [facility] [address] [place] [address] Dr. Ekta Funk EO # 0.3 103/ul Normal 0.0-0.7 [facility] Comment on above: Performed By: #### C BC #### [facility] [address] [address] [address] kEta Funk Eosinophils/100 WBC (Bld) 3.4 % Normal 0.9-7.0 [facility] Comment on above: Performed By: #### C BC #### [facility] [address] [address] [address] Ekta Funk Erythrocyte distribution width (RBC) [Ratio] 13.6 % Normal 11.0-15.0 [facility] Comment on above: Performed By: #### C BC #### [facility] [address] [address] [address] Ekta Funk Hematocrit (Bld) [Volume fraction] 32.1 % Critically low 36.0-48.0 [facility] Comment on above: Performed By: #### C BC #### [facility] [address] [place] [address] Dr. Ekta Funk Hemoglobin (Bld) [Mass/Vol] 10.3 g/dL Critically low 12.0-16.0 [facility] Comment on above: Performed By: #### C BC #### [facility] [address] [place] [address] Dr. Ekta Funk IG # 0.08 10e3/ul Critically high 0.00-0.03 [facility] Comment on above: Performed By: #### C BC #### [facility] [address] [place] [address] Dr. Ekta Funk IG % 0.9 % Critically high 0.0-0.5 [facility] Comment on above: Performed By: #### C BC #### [facility] [address] [address] [address] Ekta Funk LYMPH # 0.9 103/ul Critically low 1.2-3.8 [facility] Comment on above: Performed By: #### C BC #### [facility] [address] [place] [address] Dr. Ekta Funk Lymphocytes/100 WBC (Bld) 10.7 % Critically low 20.5-60.0 [facility] Comment on above: Performed By: #### C BC #### [facility] [address] [place] [address] Dr. Ekta Funk MANUAL DIFF REQ NO Normal [facility] Comment on above: Performed By: #### C BC #### [facility] [address] [place] [address] Dr. Ekta Funk MCH (RBC) [Entitic mass] 32.2 pg Normal 26.7-34.0 [facility] Comment on above: Performed By: #### C BC #### [facility] [address] [place] [address] Dr. Ekta Funk MCHC (RBC) [Mass/Vol] 32.1 g/dL Normal 29.9-35.2 [facility] Comment on above: Performed By: #### C BC #### [facility] [address] [place] [address] Dr. Ekta Funk MCV (RBC) [Entitic vol] 100.3 fL Critically high 81.0-99.0 [facility] Comment on above: Performed By: #### C BC #### [facility] [address] [place] [address] Dr. Ekta Funk MONO # 0.9 103/ul Critically high 0.3-0.8 [facility] Comment on above: Performed By: #### C BC #### [facility] [address] [place] [address] Dr. Ekta Funk Monocytes/100 WBC (Bld) 9.9 % Normal 1.7-12.0 [facility] Comment on above: Performed By: #### C BC #### [facility] [address] [place] [address] Dr. Ekta Funk NEUT # 6.4 103/ul Normal 1.4-6.5 [facility] Comment on above: Performed By: #### C BC #### [facility] [address] [place] [address] Dr. Ekta Funk Neutrophils/100 WBC (Bld) 74.4 % Normal 43.0-75.0 [facility] Comment on above: Performed By: #### C BC #### [facility] [address] [place] [address] Dr. Ekta Funk Platelet mean volume (Bld) [Entitic vol] 9.5 fL Normal 9.5-13.5 [facility] Comment on above: Performed By: #### C BC #### [facility] [address] [place] [address] Dr. Ekta Funk PLT 267 103/ul Normal 150-450 [facility] Comment on above: Performed By: #### C BC #### [facility] [address] [place] [address] Dr. Ekta Funk RBC 3.20 106/ul Critically low 4.20-5.40 [facility] Comment on above: Performed By: #### C BC #### [facility] [address] [place] [address] Dr. Ekta Funk WBC 8.6 103/ul Normal 4.0-11.0 [facility] Comment on above: Performed By: #### C BC #### [facility] [address] [place] [address] Dr. Ekta Funk BASO # 0.1 103/ul Normal 0.0-0.1 [facility] Comment on above: Performed By: #### C MP #### [facility] [address] [place] [address] Dr. Ekta Funk Basophils/100 WBC (Bld) 0.7 % Normal 0.2-2.0 [facility] Comment on above: Performed By: #### C MP #### [facility] [address] [place] [address] Dr. Ekta Funk EO # 0.3 103/ul Normal 0.0-0.7 [facility] Comment on above: Performed By: #### C MP #### [facility] [address] [place] [address] Dr. Ekta Funk Eosinophils/100 WBC (Bld) 3.9 % Normal 0.9-7.0 [facility] Comment on above: Performed By: #### C MP #### [facility] [address] [address] [address] Ekta Funk Erythrocyte distribution width (RBC) [Ratio] 13.2 % Normal 11.0-15.0 [facility] Comment on above: Performed By: #### C MP #### [facility] [address] [place] [address] Dr. Ekta Funk Hematocrit (Bld) [Volume fraction] 28.0 % Critically low 36.0-48.0 [facility] Comment on above: Performed By: #### C MP #### [facility] [address] [place] [address] Dr. Ekta Funk Hemoglobin (Bld) [Mass/Vol] 9.3 g/dL Critically low 12.0-16.0 [facility] Comment on above: Performed By: #### C MP #### [facility] [address] [place] [address] Dr. Ekta Funk IG # 0.08 10e3/ul Critically high 0.00-0.03 [facility] Comment on above: Performed By: #### C MP #### [facility] [address] [place] [address] Dr. Ekta Funk IG % 1.1 % Critically high 0.0-0.5 [facility] Comment on above: Performed By: #### C MP #### [facility] [address] [place] [address] Dr. Ekta Funk LYMPH # 0.9 103/ul Critically low 1.2-3.8 [facility] Comment on above: Performed By: #### C MP #### [facility] [address] [place] [address] Dr. Ekta Funk Lymphocytes/100 WBC (Bld) 12.1 % Critically low 20.5-60.0 [facility] Comment on above: Performed By: #### C MP #### [facility] [address] [place] [address] Dr. Ekta Funk MANUAL DIFF REQ NO Normal [facility] Comment on above: Performed By: #### C MP #### [facility] [address] [place], [place] [id number] Dr. Ekta Funk MCH (RBC) [Entitic mass] 32.0 pg Normal 26.7-34.0 [facility] Comment on above: Performed By: #### C MP #### [facility] [address] [place] [address] Dr. Ekta Funk MCHC (RBC) [Mass/Vol] 33.2 g/dL Normal 29.9-35.2 [facility] Comment on above: Performed By: #### C MP #### [facility] [address] [place] [address] Dr. Ekta Funk MCV (RBC) [Entitic vol] 96.2 fL Normal 81.0-99.0 [facility] Comment on above: Performed By: #### C MP #### [facility] [address] [place] [address] Dr. Ekta Funk MONO # 0.7 103/ul Normal 0.3-0.8 [facility] Comment on above: Performed By: #### C MP #### [facility] [address] [place] [address] Dr. Ekta Funk Monocytes/100 WBC (Bld) 9.8 % Normal 1.7-12.0 [facility] Comment on above: Performed By: #### C MP #### [facility] [address] [place] [address] Dr. Ekta Funk NEUT # 5.2 103/ul Normal 1.4-6.5 [facility] Comment on above: Performed By: #### C MP #### [facility] [address] [place] [address] Dr. Ekta Funk Neutrophils/100 WBC (Bld) 72.4 % Normal 43.0-75.0 [facility] Comment on above: Performed By: #### C MP #### [facility] [address] [place] [address] Dr. Ekta Funk Platelet mean volume (Bld) [Entitic vol] 9.4 fL Critically low 9.5-13.5 [facility] Comment on above: Performed By: #### C MP #### [facility] [address] [place] [address] Dr. Ekta Funk PLT 250 103/ul Normal 150-450 [facility] Comment on above: Performed By: #### C MP #### [facility] [address] [place] [address] Dr. Ekta Funk RBC 2.91 106/ul Critically low 4.20-5.40 [facility] Comment on above: Performed By: #### C MP #### [facility] [address] [place] [address] Dr. Ekta Funk WBC 7.2 103/ul Normal 4.0-11.0 [facility] Comment on above: Performed By: #### C MP #### [facility] [address] [place] [address] Dr. Ekta Funk PROF 14(COMP METB)on 023 Albumin [Mass/Vol] 2.1 g/dL Critically low 3.4-5.0 [facility] Comment on above: Performed By: #### C MP #### [facility] [address] [place] [address] Dr. Ekta Funk Albumin/Globulin [Mass ratio] 0.6 {ratio} Normal [facility] Comment on above: Performed By: #### C MP #### [facility] [address] [place] [address] Dr. Ekta Funk ALP [Catalytic activity/Vol] 68 U/L Normal 46-116 [facility] Comment on above: Performed By: #### C MP #### [facility] [address] [place] [address] Dr. Ekta Funk ALT [Catalytic activity/Vol] 14 U/L Normal 14-59 [facility] Comment on above: Performed By: #### C MP #### [facility] [address] [place] [address] Dr. Ekta Funk Anion gap [Moles/Vol] 12.9 mmol/L Normal [facility] Comment on above: Performed By: #### C MP #### [facility] [address] [place] [address] Dr. Ekta Funk AST [Catalytic activity/Vol] 14 U/L Critically low 15-37 [facility] Comment on above: Performed By: #### C MP #### [facility] [address] [address] [address] Ekta Funk Bilirubin [Mass/Vol] 0.3 mg/dL Normal 0.2-1.0 [facility] Comment on above: Performed By: #### C MP #### [facility] [address] [address] [address] Ekta Funk Calcium [Mass/Vol] 8.3 mg/dL Critically low 8.5-10.1 [facility] Comment on above: Performed By: #### C MP #### [facility] [address] [place] [address] Dr. Ekta Funk Chloride [Moles/Vol] 109 mmol/L Critically high 98-107 [facility] Comment on above: Performed By: #### C MP #### [facility] [address] [address] [address] Ekta Funk CO2 [Moles/Vol] 19.3 mmol/L Critically low 21.0-32.0 [facility] Comment on above: Performed By: #### C MP #### [facility] [address] [place] [address] Dr. Ekta Funk Creatinine [Mass/Vol] 1.54 mg/dL Critically high 0.55-1.02 [facility] Comment on above: Performed By: #### C MP #### [facility] [address] [address] [address] Ekta Funk EGFR-AF QATARI 40 mL/min/1.73m2 Critically low >=60 [facility] Comment on above: Performed By: #### C MP #### [facility] [address] [place] [address] Dr. Ekta Funk EGFR-NON AF QATARI 33 mL/min/1.73m2 Critically low >=60 [facility] Comment on above: Performed By: #### C MP #### [facility] [address] [place] [address] Dr. Ekta Funk Globulin (S) [Mass/Vol] 3.7 g/dL Normal [facility] Comment on above: Performed By: #### C MP #### [facility] [address] [place] [address] Dr. Ekta Funk Glucose [Mass/Vol] 117 mg/dL Critically high 74-106 [facility] Comment on above: Performed By: #### C MP #### [facility] [address] [address] [address] Ekta Funk Potassium [Moles/Vol] 4.2 mmol/L Normal 3.5-5.1 [facility] Comment on above: Performed By: #### C MP #### [facility] [address] [place] [address] Dr. Ekta Funk Protein [Mass/Vol] 5.8 g/dL Critically low 6.4-8.2 [facility] Comment on above: Performed By: #### C MP #### [facility] [address] [place] [address] Dr. Ekta Funk Sodium [Moles/Vol] 137 mmol/L Normal 136-145 [facility] Comment on above: Performed By: #### C MP #### [facility] [address] [place] [address] Dr. Ekta Funk Urea nitrogen [Mass/Vol] 27.0 mg/dL Critically high 7.0-18.0 [facility] Comment on above: Performed By: #### C MP #### [facility] [address] [place] [address] Dr. Ekta Funk Urea nitrogen/Creatinine [Mass ratio] 17.5 mg/mg Normal [facility] Comment on above: Performed By: #### C MP #### [facility] [address] [address] [address] Ekta Funk AMMONIAon 11-24-2022 Ammonia (P) [Moles/Vol] 13 umol/L Normal 11-32 [facility] Comment on above: Performed By: #### C VDTBH #### [facility] [address] [place] [address] Dr. Ekta Funk CBC AUTO DIFFon 11-24-2022 BASO # 0.0 103/ul Normal 0.0-0.1 [facility] Comment on above: Performed By: #### C MP #### [facility] [address] [address] [address] Ekta Funk Basophils/100 WBC (Bld) 0.4 % Normal 0.2-2.0 [facility] Comment on above: Performed By: #### C MP #### [facility] [address] [address] [address] Ekta Funk EO # 0.4 103/ul Normal 0.0-0.7 [facility] Comment on above: Performed By: #### C MP #### [facility] [address] [address] [address] Ekta Funk Eosinophils/100 WBC (Bld) 3.8 % Normal 0.9-7.0 [facility] Comment on above: Performed By: #### C MP #### [facility] [address] [address] [address] Ekta Funk Erythrocyte distribution width (RBC) [Ratio] 13.2 % Normal 11.0-15.0 [facility] Comment on above: Performed By: #### C MP #### [facility] [address] [place] [address] Dr. Ekta Funk Hematocrit (Bld) [Volume fraction] 34.0 % Critically low 36.0-48.0 [facility] Comment on above: Performed By: #### C MP #### [facility] [address] [place] [address] Dr. Ekta Funk Hemoglobin (Bld) [Mass/Vol] 11.5 g/dL Critically low 12.0-16.0 [facility] Comment on above: Performed By: #### C MP #### [facility] [address] [place] [address] Dr. Ekta Funk IG # 0.11 10e3/ul Critically high 0.00-0.03 [facility] Comment on above: Performed By: #### C MP #### [facility] [address] [place] [address] Dr. Ekta Funk IG % 1.2 % Critically high 0.0-0.5 [facility] Comment on above: Performed By: #### C MP #### [facility] [address] [place] [address] Dr. Ekta Funk LYMPH # 1.4 103/ul Normal 1.2-3.8 [facility] Comment on above: Performed By: #### C MP #### [facility] [address] [place] [address] Dr. Ekta Funk Lymphocytes/100 WBC (Bld) 14.9 % Critically low 20.5-60.0 [facility] Comment on above: Performed By: #### C MP #### [facility] [address] [place] [address] Dr. Ekta Funk MANUAL DIFF REQ NO Normal [facility] Comment on above: Performed By: #### C MP #### [facility] [address] [place] [address] Dr. Ekta Funk MCH (RBC) [Entitic mass] 32.5 pg Normal 26.7-34.0 [facility] Comment on above: Performed By: #### C MP #### [facility] [address] [place] [address] Dr. Ekta Funk MCHC (RBC) [Mass/Vol] 33.8 g/dL Normal 29.9-35.2 [facility] Comment on above: Performed By: #### C MP #### [facility] [address] [place] [address] Dr. Ekta Funk MCV (RBC) [Entitic vol] 96.0 fL Normal 81.0-99.0 [facility] Comment on above: Performed By: #### C MP #### [facility] [address] [place] [address] Dr. Ekta Funk MONO # 0.9 103/ul Critically high 0.3-0.8 [facility] Comment on above: Performed By: #### C MP #### [facility] [address] [place] [address] Dr. Ekta Funk Monocytes/100 WBC (Bld) 9.7 % Normal 1.7-12.0 [facility] Comment on above: Performed By: #### C MP #### [facility] [address] [place] [address] Dr. Ekta Funk NEUT # 6.4 103/ul Normal 1.4-6.5 [facility] Comment on above: Performed By: #### C MP #### [facility] [address] [address] [address] Ekta Funk Neutrophils/100 WBC (Bld) 70.0 % Normal 43.0-75.0 [facility] Comment on above: Performed By: #### C MP #### [facility] [address] [place] [address] Dr. Ekta Funk Platelet mean volume (Bld) [Entitic vol] 9.3 fL Critically low 9.5-13.5 [facility] Comment on above: Performed By: #### C MP #### [facility] [address] [place] [address] Dr. Ekta Funk PLT 308 103/ul Normal 150-450 [facility] Comment on above: Performed By: #### C MP #### [facility] [address] [place] [address] Dr. Ekta Funk RBC 3.54 106/ul Critically low 4.20-5.40 [facility] Comment on above: Performed By: #### C MP #### [facility] [address] [place] [address] Dr. Ekta Funk WBC 9.1 103/ul Normal 4.0-11.0 [facility] Comment on above: Performed By: #### C MP #### [facility] [address] [place] [address] Dr. Ekta Funk CPKon 11-24-2022 CK [Catalytic activity/Vol] 21 U/L Critically low 26-192 [facility] Comment on above: Performed By: #### B 12FOL, VITAD, IRON #### [facility] [address] [place] [address] STROKE HEAD WOon [...] by: VANESSA PARADA Date: 2022-11-24 11:09 Normal [facility] CTA HEAD WO W CONon 11-25-19 23 [...] VISHNU MARIE Date: 2022-11-24 12:41 Normal [facility] CULTURE URINEon 11-24-2022 CULTURE URINE Culture Observations : NO GROWTH. Normal [facility] Comment on above: Performed By: #### I NSULIN #### [facility] [address] [place] [address] Dr. Ekta Funk [facility]on 11-08 SARS-CoV-2 (COVID-19) RNA GANESH+probe Ql (Unsp spec) Not detected Normal NOT DETECTED [facility] Comment on above: Result Comment: When diagnostic [...] for this test is supported by the [employer] and Human Service's declaration [...] used). Performed By: #### C VDTB #### [facility] [address] [place] [address] Dr. Ekta Funk ER URINE PROFILEon 3 Bilirubin Ql (U) Negative Normal NEGATIVE [facility] Comment on above: Performed By: #### C BC #### [facility] [address] [place] [address] Dr. Ekta Funk Clarity (U) CLEAR Normal CLEAR [facility] Comment on above: Performed By: #### C BC #### [facility] [address] [place] [address] Dr. Ekta Funk Color (U) LT. YELLOW Normal YELLOW [facility] Comment on above: Performed By: #### C BC #### [facility] [address] [place] [address] Dr. Ekta COLÓN A micrscopic examination will be performed if indicated. Normal [facility] Comment on above: Performed By: #### C BC #### [facility] [address] [place] [address] Dr. Ekta Funk Glucose Ql (U) Negative Normal NEGATIVE [facility] Comment on above: Performed By: #### C BC #### [facility] [address] [place] [address] Dr. Ekta Funk Hemoglobin Ql (U) Negative Normal NEGATIVE [facility] Comment on above: Performed By: #### C BC #### [facility] [address] [place] [address] Dr. Ekta Funk Ketones Ql (U) Negative Normal NEGATIVE [facility] Comment on above: Performed By: #### C BC #### [facility] [address] [place] [address] Dr. Ekta Funk LEUKOCYTES Negative Normal NEGATIVE [facility] Comment on above: Performed By: #### C BC #### [facility] [address] [place] [address] Dr. Ekta Funk Nitrite Ql (U) Negative Normal NEGATIVE [facility] Comment on above: Performed By: #### C BC #### [facility] [address] [place] [address] Dr. Ekta Funk pH (U) 5.5 [pH] Normal 5-9 [facility] Comment on above: Performed By: #### C BC #### [facility] [address] [place] [address] Dr. Ekta Funk SPEC GRAVITY 1.020 Normal 1.005-<=1.025 [facility] Comment on above: Performed By: #### C BC #### [facility] [address] [place] [address] Dr. Ekta Funk UA PROTEIN Negative Normal NEGATIVE/ TRACE [facility] Comment on above: Performed By: #### C BC #### [facility] [address] [place] [address] Dr. Ekta Funk UR MICRO IND NOT INDICATED Normal [facility] Comment on above: Performed By: #### C BC #### [facility] [address] [place] [address] Dr. Ekta Funk Urobilinogen Qn (U) 0.2 {Ivan'U}/dL Normal 0.2 - 1. 0 [facility] Comment on above: Performed By: #### C BC #### [facility] [address] [place] [address] Dr. Ekta Funk GLYCOHEMOGLOBIN A1Con 2022 ADA RECOMMENDATION SEE BELOW Normal [facility] Comment on above: Result Comment: ADA RECOMMENDED LIMIT 4.0 - 6.0 ADA THERAPEUTIC TARGET < 7.0 ACTION SUGGESTED > 7.0 Performed By: #### B 12FOL, VITAD, IRON #### [facility] [address] [place] [address] Dr. Ekta Funk Glucose [Mass/Vol] 143 mg/dL Normal [facility] Comment on above: Performed By: #### B 12FOL, VITAD, IRON #### [facility] [address] [place] [address] Dr. Ekta Funk HbA1c (Bld) [Mass fraction] 6.6 % Critically high 4.5-6.2 [facility] Comment on above: Performed By: #### B 12FOL, VITAD, IRON #### [facility] [address] [place] [address] Dr. Ekta Funk LACTATE/LACTIC ACIDon 2022 Lactate [Moles/Vol] 1.6 mmol/L Normal 0.4-2.0 [facility] Comment on above: Performed By: #### C MP #### [facility] [address] [place] [address] Dr. Ekta Funk Lactate [Moles/Vol] 2.1 mmol/L Critically high 0.4-2.0 [facility] Comment on above: Performed By: #### B 12FOL, VITAD, IRON #### [facility] [address] [place] [address] Dr. Ekta Funk LIPASEon 11-24-2022 Lipase [Catalytic activity/Vol] 165.0 U/L Normal 73.0-393.0 [facility] Comment on above: Performed By: #### B 12FOL, VITAD, IRON #### [facility] [address] [place] [address] Dr. Ekta Funk LIPID PROFILEon 11-24-2022 CHOL-HDL RATIO NORM SEE BELOW Normal [facility] Comment on above: Result Comment: 3.3 - 4.4 LOW RISK 4.4 - 7.1 AVERAGE RISK 7.1 - 11.0 MODERATE RISK >11.0 HIGH RISK Performed By: #### B 12FOL, VITAD, IRON #### [facility] [address] [place] [address] Dr. Ekta Funk Cholesterol [Mass/Vol] 248 mg/dL Critically high <=200 [facility] Comment on above: Performed By: #### B 12FOL, VITAD, IRON #### [facility] [address] [address] [address] Ekta Funk Cholesterol in HDL [Mass/Vol] 58 mg/dL Normal 40-60 [facility] Comment on above: Performed By: #### B 12FOL, VITAD, IRON #### [facility] [address] [address] [address] Ekta Funk Cholesterol in LDL [Mass/Vol] 165.6 mg/dL Normal [facility] Comment on above: Performed By: #### B 12FOL, VITAD, IRON #### [facility] [address] [address] [address] Ekta Funk Cholesterol.total/Ch olesterol in HDL [Mass ratio] 4.3 {ratio} Normal [facility] Comment on above: Performed By: #### B 12FOL, VITAD, IRON #### [facility] [address] [address] [address] Ekta Funk HDL NORMAL > or = 60 mg/dl - LO W CARDIOVASCULAR RISK <40 mg/dl - HIGH CARDIOVASCULAR RISK Normal [facility] Comment on above: Performed By: #### B 12FOL, VITAD, IRON #### [facility] [address] [place] [address] Dr. Ekta Funk LDL CALC NORMAL SEE BELOW Normal [facility] Comment on above: Result Comment: <100 mg/dl OPTIMAL 100 - 129 mg/dl NEAR OR ABOVE OPTIMAL 130 - 159 mg/dl BORDERLINE HIGH 160 - 189 mg/dl HIGH >190 mg/dl VERY HIGH Performed By: #### B 12FOL, VITAD, IRON #### [facility] [address] [address] [address] Ekta Funk Triglyceride [Mass/Vol] 122 mg/dL Normal <=150 [facility] Comment on above: Performed By: #### B 12FOL, VITAD, IRON #### [facility] [address] [place] [address] Dr. Ekta Funk VLDL CALC 24.4 mg/dL Normal [facility] Comment on above: Performed By: #### B 12FOL, VITAD, IRON #### [facility] [address] [place], [place] [address] Dr. Ekta Funk MRI BRAIN WO CONon [...] by: RAVEN ELAINE Date: 2022-11-24 19:35 Normal [facility] PROF 14(COMP METB)on 023 Albumin [Mass/Vol] 2.7 g/dL Critically low 3.4-5.0 [facility] Comment on above: Performed By: #### B 12FOL, VITAD, IRON #### [facility] [address], [place] [address] Dr. Ekta Funk Albumin/Globulin [Mass ratio] 0.6 {ratio} Normal [facility] Comment on above: Performed By: #### B 12FOL, VITAD, IRON #### [facility] [address] [place], [place] [address] Dr. Ekta Funk ALP [Catalytic activity/Vol] 85 U/L Normal 46-116 [facility] Comment on above: Performed By: #### B 12FOL, VITAD, IRON #### [facility] [address] [address] [address] Ekta Funk ALT [Catalytic activity/Vol] 18 U/L Normal 14-59 [facility] Comment on above: Performed By: #### B 12FOL, VITAD, IRON #### [facility] [address] [address] [address] Ekta Funk Anion gap [Moles/Vol] 18.9 mmol/L Normal [facility] Comment on above: Performed By: #### B 12FOL, VITAD, IRON #### [facility] [address] [place] [address] Dr. Ekta Funk AST [Catalytic activity/Vol] 16 U/L Normal 15-37 [facility] Comment on above: Performed By: #### B 12FOL, VITAD, IRON #### [facility] [address] [place] [address] Dr. Ekta Funk Bilirubin [Mass/Vol] 0.4 mg/dL Normal 0.2-1.0 [facility] Comment on above: Performed By: #### B 12FOL, VITAD, IRON #### [facility] [address] [place] [address] Dr. Ekta Funk Calcium [Mass/Vol] 9.5 mg/dL Normal 8.5-10.1 [facility] Comment on above: Performed By: #### B 12FOL, VITAD, IRON #### [facility] [address] [place] [address] Dr. Ekta Funk Chloride [Moles/Vol] 108 mmol/L Critically high 98-107 [facility] Comment on above: Performed By: #### B 12FOL, VITAD, IRON #### [facility] [address] [place] [address] Dr. Ekta Funk CO2 [Moles/Vol] 21.1 mmol/L Normal 21.0-32.0 [facility] Comment on above: Performed By: #### B 12FOL, VITAD, IRON #### [facility] [address] [address] [address] Ekta Funk Creatinine [Mass/Vol] 2.08 mg/dL Critically high 0.55-1.02 [facility] Comment on above: Performed By: #### B 12FOL, VITAD, IRON #### [facility] [address] [place] [address] Dr. Ekta Funk EGFR-AF QATARI 28 mL/min/1.73m2 Critically low >=60 [facility] Comment on above: Performed By: #### B 12FOL, VITAD, IRON #### [facility] [address] [place] [address] Dr. Ekta Funk EGFR-NON AF QATARI 23 mL/min/1.73m2 Critically low >=60 [facility] Comment on above: Performed By: #### B 12FOL, VITAD, IRON #### [facility] [address] [place] [address] Dr. Ekta Funk Globulin (S) [Mass/Vol] 4.6 g/dL Normal [facility] Comment on above: Performed By: #### B 12FOL, VITAD, IRON #### [facility] [address] [place] [address] Dr. Ekta Funk Glucose [Mass/Vol] 119 mg/dL Critically high 74-106 [facility] Comment on above: Performed By: #### B 12FOL, VITAD, IRON #### [facility] [address] [place] [address] Dr. Ekta Funk Potassium [Moles/Vol] 5.0 mmol/L Normal 3.5-5.1 [facility] Comment on above: Performed By: #### B 12FOL, VITAD, IRON #### [facility] [address] [place] [address] Dr. Ekta Funk Protein [Mass/Vol] 7.3 g/dL Normal 6.4-8.2 [facility] Comment on above: Performed By: #### B 12FOL, VITAD, IRON #### [facility] [address] [place] [address] Dr. Ekta Funk Sodium [Moles/Vol] 143 mmol/L Normal 136-145 [facility] Comment on above: Performed By: #### B NENO LAUGHLINAD, IRON #### [facility] [address] [place] [address] Dr. Ekta Funk Urea nitrogen [Mass/Vol] 37.0 mg/dL Critically high 7.0-18.0 [facility] Comment on above: Performed By: #### Bob FelixFOL VITAD, IRON #### [facility] [address] [address] [address] Ekta Funk Urea nitrogen/Creatinine [Mass ratio] 17.8 mg/mg Normal [facility] Comment on above: Performed By: #### NENO ARTHURAD, IRON #### [facility] [address] [place] [address] Dr. Ekta Funk TROPONIN, HIGH SENSITIVITYon 11-24-2022 HSTROP 14.1 pg/mL Normal 4.0-51.3 [facility] Comment on above: Result Comment: CUT- OFF POINTS HAVE BEEN ESTABLISHED BASED ON THE FOURTH UNIVERSAL DEFINITIONS OF MYOCARDIAL INFARCTION. THE UPPER REFERENCE LIMIT (URL) OF TROPONIN, DEFINED THE 99TH PERCENTILE OF cTnI DISTRIBUTION IN A REFERENCE POPULATION, HAS BEEN CONFIRMED THE DECISION THRESHOLD FOR [place] DIAGNOSIS. Performed By: #### CAROLYN ARTHUR, IRON #### [facility] [address] [place] [address] Dr. Ekta Funk TSHon 11-24-2022 TSH 1.184 uIU/mL Normal 0.358-3.740 [facility] Comment on above: Performed By: #### Bob SIDDIQIL VITAD, IRON #### [facility] [address] [place] [address] Dr. Ekta Funk XR CHEST 1 [place] [...] NATALIIA TATE Date: 2022-11-24 11:00 Normal [facility] BNPon 11-13-2022 Natriuretic peptide B (Bld) [Mass/Vol] 565.0 pg/mL Normal <=900.0 [facility] Comment on above: Performed By: #### I NSULIN #### [facility] [address] [place] [address] Dr. Ekta Funk CBC AUTO DIFFon 11-13-2022 BASO # 0.1 103/ul Normal 0.0-0.1 [facility] Comment on above: Performed By: #### C BC #### [facility] [address] [place] [address] Dr. Ekta Funk Basophils/100 WBC (Bld) 0.6 % Normal 0.2-2.0 [facility] Comment on above: Performed By: #### C BC #### [facility] [address] [place] [address] Dr. Ekta Funk EO # 0.4 103/ul Normal 0.0-0.7 [facility] Comment on above: Performed By: #### C BC #### [facility] [address] [place] [address] Dr. Ekta Funk Eosinophils/100 WBC (Bld) 3.7 % Normal 0.9-7.0 [facility] Comment on above: Performed By: #### C BC #### [facility] [address] [place] [address] Dr. Ekta Funk Erythrocyte distribution width (RBC) [Ratio] 13.2 % Normal 11.0-15.0 [facility] Comment on above: Performed By: #### C BC #### [facility] [address] [place] [address] Dr. Ekta Funk Hematocrit (Bld) [Volume fraction] 36.7 % Normal 36.0-48.0 [facility] Comment on above: Performed By: #### C BC #### [facility] [address] [address] [address] Ekta Funk Hemoglobin (Bld) [Mass/Vol] 12.4 g/dL Normal 12.0-16.0 [facility] Comment on above: Performed By: #### C BC #### [facility] [address] [place] [address] Dr. Ekta Funk IG # 0.10 10e3/ul Critically high 0.00-0.03 [facility] Comment on above: Performed By: #### C BC #### [facility] [address] [place] [address] Dr. Ekta Funk IG % 1.0 % Critically high 0.0-0.5 [facility] Comment on above: Performed By: #### C BC #### [facility] [address] [place] [address] Dr. Ekta Funk LYMPH # 1.5 103/ul Normal 1.2-3.8 [facility] Comment on above: Performed By: #### C BC #### [facility] [address] [place] [address] Dr. Ekta Funk Lymphocytes/100 WBC (Bld) 14.9 % Critically low 20.5-60.0 [facility] Comment on above: Performed By: #### C BC #### [facility] [address] [place] [address] Dr. Ekta Funk MANUAL DIFF REQ NO Normal [facility] Comment on above: Performed By: #### C BC #### [facility] [address] [place] [address] Dr. Ekta Funk MCH (RBC) [Entitic mass] 32.8 pg Normal 26.7-34.0 [facility] Comment on above: Performed By: #### C BC #### [facility] [address] [place] [address] Dr. Ekta Funk MCHC (RBC) [Mass/Vol] 33.8 g/dL Normal 29.9-35.2 [facility] Comment on above: Performed By: #### C BC #### [facility] [address] [address] [address] Ekta Funk MCV (RBC) [Entitic vol] 97.1 fL Normal 81.0-99.0 [facility] Comment on above: Performed By: #### C BC #### [facility] [address] [address] [address] Ekta Funk MONO # 0.8 103/ul Normal 0.3-0.8 [facility] Comment on above: Performed By: #### C BC #### [facility] [address] [address] [address] Ekta Funk Monocytes/100 WBC (Bld) 7.7 % Normal 1.7-12.0 [facility] Comment on above: Performed By: #### C BC #### [facility] [address] [place] [address] Dr. Ekta Funk NEUT # 7.3 103/ul Critically high 1.4-6.5 [facility] Comment on above: Performed By: #### C BC #### [facility] [address] [place] [address] Dr. Ekta Funk Neutrophils/100 WBC (Bld) 72.1 % Normal 43.0-75.0 [facility] Comment on above: Performed By: #### C BC #### [facility] [address] [place] [address] Dr. Ekta Funk Platelet mean volume (Bld) [Entitic vol] 9.4 fL Critically low 9.5-13.5 [facility] Comment on above: Performed By: #### C BC #### [facility] [address] [place] [address] Dr. Ekta Funk PLT 251 103/ul Normal 150-450 [facility] Comment on above: Performed By: #### C BC #### [facility] [address] [place] [address] Dr. Ekta Funk RBC 3.78 106/ul Critically low 4.20-5.40 [facility] Comment on above: Performed By: #### C BC #### [facility] [address] [address] [address] Ekta Funk WBC 10.1 103/ul Normal 4.0-11.0 [facility] Comment on above: Performed By: #### C BC #### [facility] [address] [address] [address] Ekta Funk FREE THYROXINE INDEX T7on FTI 2.73 Normal 1.30-4.50 [facility] Comment on above: Performed By: #### I NSULIN #### [facility] [address] [place] [address] Dr. Ekta Funk T3U 35.0 % Normal 30.0-39.0 [facility] Comment on above: Performed By: #### I NSULIN #### [facility] [address] [place] [address] Dr. Ekta Funk T4 [Mass/Vol] 7.80 ug/dL Normal 4.80-13.90 [facility] Comment on above: Performed By: #### I NSULIN #### [facility] [address] [place] [address] Dr. Ekta Funk GLYCOHEMOGLOBIN A1Con 2022 ADA RECOMMENDATION SEE BELOW Normal [facility] Comment on above: Result Comment: ADA RECOMMENDED LIMIT 4.0 - 6.0 ADA THERAPEUTIC TARGET < 7.0 ACTION SUGGESTED > 7.0 Performed By: #### B 12FOL, VITAD, IRON #### [facility] [address] [place] [address] Dr. Ekta Funk Glucose [Mass/Vol] 134 mg/dL Normal [facility] Comment on above: Performed By: #### B 12FOL, VITAD, IRON #### [facility] [address] [address] [address] Ekta Funk HbA1c (Bld) [Mass fraction] 6.3 % Critically high 4.5-6.2 [facility] Comment on above: Performed By: #### B 12FOL, VITAD, IRON #### [facility] [address] [address] [address] Ekta Funk IRONon 11-13-2022 Iron [Mass/Vol] 55.0 ug/dL Normal 50.0-170.0 [facility] Comment on above: Performed By: #### B 12FOL, VITAD, IRON #### [facility] [address] [address] [address] Ekta Funk LIPID PROFILEon 11-13-2022 CHOL-HDL RATIO NORM SEE BELOW Normal [facility] Comment on above: Result Comment: 3.3 - 4.4 LOW RISK 4.4 - 7.1 AVERAGE RISK 7.1 - 11.0 MODERATE RISK >11.0 HIGH RISK Performed By: #### I NSULIN #### [facility] [address] [address] [address] Ekta Funk Cholesterol [Mass/Vol] 294 mg/dL Critically high <=200 [facility] Comment on above: Performed By: #### I NSULIN #### [facility] [address] [address] [address] Etka Funk Cholesterol in HDL [Mass/Vol] 64 mg/dL Critically high 40-60 [facility] Comment on above: Performed By: #### I NSULIN #### [facility] [address] [address] [address] Ekta Funk Cholesterol in LDL [Mass/Vol] 197.2 mg/dL Normal [facility] Comment on above: Performed By: #### I NSULIN #### [facility] [address] [address] [address] Ekta Funk Cholesterol.total/Ch olesterol in HDL [Mass ratio] 4.6 {ratio} Normal [facility] Comment on above: Performed By: #### I NSULIN #### [facility] [address] [address] [address] Ekta Funk HDL NORMAL > or = 60 mg/dl - LO W CARDIOVASCULAR RISK <40 mg/dl - HIGH CARDIOVASCULAR RISK Normal [facility] Comment on above: Performed By: #### I NSULIN #### [facility] [address] [address] [address] Ekta Funk LDL CALC NORMAL SEE BELOW Normal [facility] Comment on above: Result Comment: <100 mg/dl OPTIMAL 100 - 129 mg/dl NEAR OR ABOVE OPTIMAL 130 - 159 mg/dl BORDERLINE HIGH 160 - 189 mg/dl HIGH >190 mg/dl VERY HIGH Performed By: #### I NSULIN #### [facility] [address] [place] [address] Dr. Ekta Funk Triglyceride [Mass/Vol] 164 mg/dL Critically high <=150 [facility] Comment on above: Performed By: #### I NSULIN #### [facility] [address] [place] [address] Dr. Ekta Funk VLDL CALC 32.8 mg/dL Normal [facility] Comment on above: Performed By: #### I NSULIN #### [facility] [address] [place] [address] Dr. Ekta Funk PROF 14(COMP METB)on 023 Albumin [Mass/Vol] 3.0 g/dL Critically low 3.4-5.0 [facility] Comment on above: Performed By: #### I NSULIN #### [facility] [address] [place] [address] Dr. Ekta Funk Albumin/Globulin [Mass ratio] 0.6 {ratio} Normal [facility] Comment on above: Performed By: #### I NSULIN #### [facility] [address] [place] [address] Dr. Ekta Funk ALP [Catalytic activity/Vol] 92 U/L Normal 46-116 [facility] Comment on above: Performed By: #### I NSULIN #### [facility] [address] [place] [address] Dr. Ekta Funk ALT [Catalytic activity/Vol] 26 U/L Normal 14-59 [facility] Comment on above: Performed By: #### I NSULIN #### [facility] [address] [place] [address] Dr. Ekta Funk Anion gap [Moles/Vol] 16.2 mmol/L Normal [facility] Comment on above: Performed By: #### I NSULIN #### [facility] [address] [place] [address] Dr. Ekta Funk AST [Catalytic activity/Vol] 16 U/L Normal 15-37 [facility] Comment on above: Performed By: #### I NSULIN #### [facility] [address] [address] [address] Ekta Funk Bilirubin [Mass/Vol] 0.5 mg/dL Normal 0.2-1.0 [facility] Comment on above: Performed By: #### I NSULIN #### [facility] [address] [address] [address] Ekta Funk Calcium [Mass/Vol] 9.7 mg/dL Normal 8.5-10.1 [facility] Comment on above: Performed By: #### I NSULIN #### [facility] [address] [place] [address] Dr. Ekta Funk Chloride [Moles/Vol] 105 mmol/L Normal 98-107 [facility] Comment on above: Performed By: #### I NSULIN #### [facility] [address] [place] [address] Dr. Ekta Funk CO2 [Moles/Vol] 24.9 mmol/L Normal 21.0-32.0 [facility] Comment on above: Performed By: #### I NSULIN #### [facility] [address] [place] [address] Dr. Ekta Funk Creatinine [Mass/Vol] 2.18 mg/dL Critically high 0.55-1.02 [facility] Comment on above: Performed By: #### I NSULIN #### [facility] [address] [place] [address] Dr. Ekta Funk EGFR-AF QATARI 27 mL/min/1.73m2 Critically low >=60 [facility] Comment on above: Performed By: #### I NSULIN #### [facility] [address] [place] [address] Dr. Ekta Funk EGFR-NON AF QATARI 22 mL/min/1.73m2 Critically low >=60 [facility] Comment on above: Performed By: #### I NSULIN #### [facility] [address] [place] [address] Dr. Ekta Funk Globulin (S) [Mass/Vol] 4.7 g/dL Normal [facility] Comment on above: Performed By: #### I NSULIN #### [facility] [address] [place] [address] Dr. Ekta Funk Glucose [Mass/Vol] 114 mg/dL Critically high 74-106 T [facility] Comment on above: Performed By: #### I NSULIN #### [facility] [address] [place] [address] Dr. Ekta Funk Potassium [Moles/Vol] 5.1 mmol/L Normal 3.5-5.1 [facility] Comment on above: Performed By: #### I NSULIN #### [facility] [address] [place] [address] Dr. Ekta Funk Protein [Mass/Vol] 7.7 g/dL Normal 6.4-8.2 [facility] Comment on above: Performed By: #### I NSULIN #### [facility] [address] [place] [address] Dr. Ekta Funk Sodium [Moles/Vol] 141 mmol/L Normal 136-145 [facility] Comment on above: Performed By: #### I NSULIN #### [facility] [address] [place] [address] Dr. Ekta Funk Urea nitrogen [Mass/Vol] 51.0 mg/dL Critically high 7.0-18.0 [facility] Comment on above: Performed By: #### I NSULIN #### [facility] [address] [place] [address] Dr. Ekta Funk Urea nitrogen/Creatinine [Mass ratio] 23.4 mg/mg Normal [facility] Comment on above: Performed By: #### I NSULIN #### [facility] [address] [place] [address] Dr. Ekta Funk TSHon 11-13-2022 TSH 0.935 uIU/mL Normal 0.358-3.740 [facility] Comment on above: Performed By: #### I NSULIN #### [facility] [address] [place] [address] Dr. Ekta Funk XR CHEST 2 [place] [...] GODWIN BECK Date: 2022-11-13 15:40 Normal [facility] PROF 14(COMP METB)on 023 Albumin [Mass/Vol] 3.0 g/dL Critically low 3.4-5.0 [facility] Comment on above: Performed By: #### B 12FOL, VITAD, IRON #### [facility] [address] [address] [address] Ekta Funk Albumin/Globulin [Mass ratio] 0.7 {ratio} Normal [facility] Comment on above: Performed By: #### B 12FOL, VITAD, IRON #### [facility] [address] [address] [address] Ekta Funk ALP [Catalytic activity/Vol] 89 U/L Normal 46-116 [facility] Comment on above: Performed By: #### B 12FOL, VITAD, IRON #### [facility] [address] [address] [address] Ekta Funk ALT [Catalytic activity/Vol] 29 U/L Normal 14-59 [facility] Comment on above: Performed By: #### B 12FOL, VITAD, IRON #### [facility] [address] [address] [address] Ekta Funk Anion gap [Moles/Vol] 15.2 mmol/L Normal [facility] Comment on above: Performed By: #### B 12FOL, VITAD, IRON #### [facility] [address] [address] [address] Ekta Funk AST [Catalytic activity/Vol] 14 U/L Critically low 15-37 [facility] Comment on above: Performed By: #### B 12FOL, VITAD, IRON #### [facility] [address] [address] [address] Ekta Funk Bilirubin [Mass/Vol] 0.4 mg/dL Normal 0.2-1.0 [facility] Comment on above: Performed By: #### B 12FOL, VITAD, IRON #### [facility] [address] [place] [address] Dr. Ekta Funk Calcium [Mass/Vol] 9.1 mg/dL Normal 8.5-10.1 [facility] Comment on above: Performed By: #### B 12FOL, VITAD, IRON #### [facility] [address] [place] [address] Dr. Ekta Funk Chloride [Moles/Vol] 106 mmol/L Normal 98-107 [facility] Comment on above: Performed By: #### B 12FOL, VITAD, IRON #### [facility] [address] [address] [address] Ekta Funk CO2 [Moles/Vol] 24.2 mmol/L Normal 21.0-32.0 [facility] Comment on above: Performed By: #### B 12FOL, VITAD, IRON #### [facility] [address] [address] [address] Ekta Funk Creatinine [Mass/Vol] 1.89 mg/dL Critically high 0.55-1.02 [facility] Comment on above: Performed By: #### B 12FOL, VITAD, IRON #### [facility] [address] [address] [address] Ekta Funk EGFR-AF QATARI 32 mL/min/1.73m2 Critically low >=60 [facility] Comment on above: Performed By: #### B 12FOL, VITAD, IRON #### [facility] [address] [address] [address] Ekta Funk EGFR-NON AF QATARI 26 mL/min/1.73m2 Critically low >=60 [facility] Comment on above: Performed By: #### B 12FOL, VITAD, IRON #### [facility] [address] [address] [address] Ekta Funk Globulin (S) [Mass/Vol] 4.1 g/dL Normal [facility] Comment on above: Performed By: #### B 12FOL, VITAD, IRON #### [facility] [address] [address] [address] Ekta Funk Glucose [Mass/Vol] 108 mg/dL Critically high 74-106 T [facility] Comment on above: Performed By: #### B 12FOL, VITAD, IRON #### [facility] [address] [place] [address] Dr. Ekta Funk Potassium [Moles/Vol] 4.4 mmol/L Normal 3.5-5.1 [facility] Comment on above: Performed By: #### B 12FOL, VITAD, IRON #### [facility] [address] [place] [address] Dr. Ekta Funk Protein [Mass/Vol] 7.1 g/dL Normal 6.4-8.2 [facility] Comment on above: Performed By: #### B 12FOL, VITAD, IRON #### [facility] [address] [place] [address] Dr. Ekta Funk Sodium [Moles/Vol] 141 mmol/L Normal 136-145 [facility] Comment on above: Performed By: #### B 12FOL, VITAD, IRON #### [facility] [address] [place] [address] Dr. Ekta Funk Urea nitrogen [Mass/Vol] 40.0 mg/dL Critically high 7.0-18.0 [facility] Comment on above: Performed By: #### B 12FOL, VITAD, IRON #### [facility] [address] [place] [address] Dr. Ekta Funk Urea nitrogen/Creatinine [Mass ratio] 21.2 mg/mg Normal [facility] Comment on above: Performed By: #### B 12FOL, VITAD, IRON #### [facility] [address] [place] [address] Dr. Ekta Funk BNPon 10-23-2022 Natriuretic peptide B (Bld) [Mass/Vol] 507.0 pg/mL Normal <=900.0 [facility] Comment on above: Performed By: #### B 12FOL, VITAD, IRON #### [facility] [address] [place] [address] Dr. Ekta Funk CBC AUTO DIFFon 10-23-2022 BASO # 0.0 103/ul Normal 0.0-0.1 [facility] Comment on above: Performed By: #### C BC #### [facility] [address] [place] [address] Dr. Ekta Funk Basophils/100 WBC (Bld) 0.2 % Normal 0.2-2.0 [facility] Comment on above: Performed By: #### C BC #### [facility] [address] [place] [address] Dr. Ekta Funk EO # 0.1 103/ul Normal 0.0-0.7 [facility] Comment on above: Performed By: #### C BC #### [facility] [address] [place] [address] Dr. Ekta Funk Eosinophils/100 WBC (Bld) 1.1 % Normal 0.9-7.0 [facility] Comment on above: Performed By: #### C BC #### [facility] [address] [place] [address] Dr. Ekta Funk Erythrocyte distribution width (RBC) [Ratio] 12.8 % Normal 11.0-15.0 [facility] Comment on above: Performed By: #### C BC #### [facility] [address] [place] [address] Dr. Ekta Funk Hematocrit (Bld) [Volume fraction] 37.1 % Normal 36.0-48.0 [facility] Comment on above: Performed By: #### C BC #### [facility] [address] [place] [address] Dr. Ekta Funk Hemoglobin (Bld) [Mass/Vol] 13.0 g/dL Normal 12.0-16.0 [facility] Comment on above: Performed By: #### C BC #### [facility] [address] [place] [address] Dr. Ekta Funk IG # 0.11 10e3/ul Critically high 0.00-0.03 [facility] Comment on above: Performed By: #### C BC #### [facility] [address] [address] [address] Ekta Funk IG % 1.1 % Critically high 0.0-0.5 [facility] Comment on above: Performed By: #### C BC #### [facility] [address] [place] [address] Dr. Ekta Funk LYMPH # 1.6 103/ul Normal 1.2-3.8 [facility] Comment on above: Performed By: #### C BC #### [facility] [address] [place] [address] Dr. Ekta Funk Lymphocytes/100 WBC (Bld) 15.6 % Critically low 20.5-60.0 [facility] Comment on above: Performed By: #### C BC #### [facility] [address] [place] [address] Dr. Ekta Funk MANUAL DIFF REQ NO Normal [facility] Comment on above: Performed By: #### C BC #### [facility] [address] [place] [address] Dr. Ekta Funk MCH (RBC) [Entitic mass] 32.8 pg Normal 26.7-34.0 [facility] Comment on above: Performed By: #### C BC #### [facility] [address] [place] [address] Dr. Ekta Funk MCHC (RBC) [Mass/Vol] 35.0 g/dL Normal 29.9-35.2 [facility] Comment on above: Performed By: #### C BC #### [facility] [address] [place] [address] Dr. Ekta Funk MCV (RBC) [Entitic vol] 93.7 fL Normal 81.0-99.0 [facility] Comment on above: Performed By: #### C BC #### [facility] [address] [place] [address] Dr. Etka Funk MONO # 0.9 103/ul Critically high 0.3-0.8 [facility] Comment on above: Performed By: #### C BC #### [facility] [address] [place] [address] Dr. Ekta Funk Monocytes/100 WBC (Bld) 8.3 % Normal 1.7-12.0 [facility] Comment on above: Performed By: #### C BC #### [facility] [address] [place] [address] Dr. Ekta Funk NEUT # 7.5 103/ul Critically high 1.4-6.5 [facility] Comment on above: Performed By: #### C BC #### [facility] [address] [place] [address] Dr. Ekta Funk Neutrophils/100 WBC (Bld) 73.7 % Normal 43.0-75.0 [facility] Comment on above: Performed By: #### C BC #### [facility] [address] [place] [address] Dr. Ekta Funk Platelet mean volume (Bld) [Entitic vol] 10.3 fL Normal 9.5-13.5 [facility] Comment on above: Performed By: #### C BC #### [facility] [address] [place] [address] Dr. Ekta Funk PLT 135 103/ul Critically low 150-450 [facility] Comment on above: Performed By: #### C BC #### [facility] [address] [place], [place] [id number] Dr. Ekta Funk RBC 3.96 106/ul Critically low 4.20-5.40 [facility] Comment on above: Performed By: #### C BC #### [facility] [address] [place] [address] Dr. Ekta Funk WBC 10.2 103/ul Normal 4.0-11.0 [facility] Comment on above: Performed By: #### C BC #### [facility] [address] [place] [address] Dr. Ekta Funk PROF 14(COMP METB)on 023 Albumin [Mass/Vol] 2.7 g/dL Critically low 3.4-5.0 [facility] Comment on above: Performed By: #### B 12FOL, VITAD, IRON #### [facility] [address] [place] [address] Dr. Ekta Funk Albumin/Globulin [Mass ratio] 0.8 {ratio} Normal [facility] Comment on above: Performed By: #### B 12FOL, VITAD, IRON #### [facility] [address] [place] [address] Dr. Ekta Funk ALP [Catalytic activity/Vol] 74 U/L Normal 46-116 [facility] Comment on above: Performed By: #### B 12FOL, VITAD, IRON #### [facility] [address] [place] [address] Dr. Ekta Funk ALT [Catalytic activity/Vol] 26 U/L Normal 14-59 [facility] Comment on above: Performed By: #### B 12FOL, VITAD, IRON #### [facility] [address] [place] [address] Dr. Ekta Funk Anion gap [Moles/Vol] 16.5 mmol/L Normal [facility] Comment on above: Performed By: #### B 12FOL, VITAD, IRON #### [facility] [address] [place] [address] Dr. Ekta Funk AST [Catalytic activity/Vol] 15 U/L Normal 15-37 [facility] Comment on above: Performed By: #### B 12FOL, VITAD, IRON #### [facility] [address] [place] [address] Dr. Ekta Funk Bilirubin [Mass/Vol] 0.4 mg/dL Normal 0.2-1.0 [facility] Comment on above: Performed By: #### B 12FOL, VITAD, IRON #### [facility] [address] [place] [address] Dr. Ekta Funk Calcium [Mass/Vol] 8.1 mg/dL Critically low 8.5-10.1 [facility] Comment on above: Performed By: #### B 12FOL, VITAD, IRON #### [facility] [address] [place] [address] Dr. Ekta Funk Chloride [Moles/Vol] 96 mmol/L Critically low 98-107 [facility] Comment on above: Performed By: #### B 12FOL, VITAD, IRON #### [facility] [address] [place] [address] Dr. Ekta Funk CO2 [Moles/Vol] 26.1 mmol/L Normal 21.0-32.0 [facility] Comment on above: Performed By: #### B 12FOL, VITAD, IRON #### [facility] [address] [place] [address] Dr. Ekta Funk Creatinine [Mass/Vol] 3.28 mg/dL Critically high 0.55-1.02 [facility] Comment on above: Performed By: #### B 12FOL, VITAD, IRON #### [facility] [address] [place] [address] Dr. Ekta Funk EGFR-AF QATARI 17 mL/min/1.73m2 Critically low >=60 [facility] Comment on above: Performed By: #### B 12FOL, VITAD, IRON #### [facility] [address] [place] [address] Dr. Ekta Funk EGFR-NON AF QATARI 14 mL/min/1.73m2 Critically low >=60 [facility] Comment on above: Performed By: #### B 12FOL, VITAD, IRON #### [facility] [address] [place] [address] Dr. Ekta Funk Globulin (S) [Mass/Vol] 3.6 g/dL Normal [facility] Comment on above: Performed By: #### B 12FOL, VITAD, IRON #### [facility] [address] [place] [address] Dr. Ekta Funk Glucose [Mass/Vol] 132 mg/dL Critically high 74-106 [facility] Comment on above: Performed By: #### B 12FOL, VITAD, IRON #### [facility] [address] [place] [address] Dr. Ekta Funk Potassium [Moles/Vol] 4.6 mmol/L Normal 3.5-5.1 [facility] Comment on above: Performed By: #### B 12FOL, VITAD, IRON #### [facility] [address] [place] [address] Dr. Ekta Funk Protein [Mass/Vol] 6.3 g/dL Critically low 6.4-8.2 [facility] Comment on above: Performed By: #### B 12FOL, VITAD, IRON #### [facility] [address] [place] [address] Dr. Ekta Funk Sodium [Moles/Vol] 134 mmol/L Critically low 136-145 [facility] Comment on above: Performed By: #### B 12FOL, VITAD, IRON #### [facility] [address] [place] [address] Dr. Ekta Funk Urea nitrogen [Mass/Vol] 74.0 mg/dL Critically high 7.0-18.0 [facility] Comment on above: Performed By: #### B 12FOL, VITAD, IRON #### [facility] [address] [place] [address] Dr. Ekta Funk Urea nitrogen/Creatinine [Mass ratio] 22.6 mg/mg Normal [facility] Comment on above: Performed By: #### B 12FOL, VITAD, IRON #### [facility] [address] [place] [address] Dr. Ekta Funk BNPon 10-22-2022 Natriuretic peptide B (Bld) [Mass/Vol] 1411.0 pg/mL Critically high <=900.0 [facility] Comment on above: Performed By: #### B 12FOL, VITAD, IRON #### [facility] [address] [place] [address] Dr. Ekta Funk CBC AUTO DIFFon 10-22-2022 BASO # 0.0 103/ul Normal 0.0-0.1 [facility] Comment on above: Performed By: #### B 12FOL, VITAD, IRON #### [facility] [address] [place] [address] Dr. Ekta Funk Basophils/100 WBC (Bld) 0.3 % Normal 0.2-2.0 [facility] Comment on above: Performed By: #### B 12FOL, VITAD, IRON #### [facility] [address] [place] [address] Dr. Ekta Funk EO # 0.1 103/ul Normal 0.0-0.7 [facility] Comment on above: Performed By: #### B 12FOL, VITAD, IRON #### [facility] [address] [place] [address] Dr. Ekta Funk Eosinophils/100 WBC (Bld) 0.6 % Critically low 0.9-7.0 [facility] Comment on above: Performed By: #### B 12FOL, VITAD, IRON #### [facility] [address] [place] [address] Dr. Ekta Funk Erythrocyte distribution width (RBC) [Ratio] 12.9 % Normal 11.0-15.0 [facility] Comment on above: Performed By: #### B 12FOL, VITAD, IRON #### [facility] [address] [place] [address] Dr. Ekta Funk Hematocrit (Bld) [Volume fraction] 40.8 % Normal 36.0-48.0 [facility] Comment on above: Performed By: #### B 12FOL, VITAD, IRON #### [facility] [address] [place] [address] Dr. Ekta Funk Hemoglobin (Bld) [Mass/Vol] 14.0 g/dL Normal 12.0-16.0 [facility] Comment on above: Performed By: #### B 12FOL, VITAD, IRON #### [facility] [address] [place] [address] Dr. Ekta Funk IG # 0.09 10e3/ul Critically high 0.00-0.03 [facility] Comment on above: Performed By: #### B 12FOL, VITAD, IRON #### [facility] [address] [address] [address] Ekta Funk IG % 0.8 % Critically high 0.0-0.5 [facility] Comment on above: Performed By: #### B 12FOL, VITAD, IRON #### [facility] [address] [place] [address] Dr. Ekta Funk LYMPH # 1.8 103/ul Normal 1.2-3.8 [facility] Comment on above: Performed By: #### B 12FOL, VITAD, IRON #### [facility] [address] [place] [address] Dr. Ekta Funk Lymphocytes/100 WBC (Bld) 16.2 % Critically low 20.5-60.0 [facility] Comment on above: Performed By: #### B 12FOL, VITAD, IRON #### [facility] [address] [place] [address] Dr. Ekta Funk MANUAL DIFF REQ NO Normal [facility] Comment on above: Performed By: #### B 12FOL, VITAD, IRON #### [facility] [address] [place] [address] Dr. Ekta Funk MCH (RBC) [Entitic mass] 32.3 pg Normal 26.7-34.0 [facility] Comment on above: Performed By: #### B 12FOL, VITAD, IRON #### [facility] [address] [place] [address] Dr. Ekta Funk MCHC (RBC) [Mass/Vol] 34.3 g/dL Normal 29.9-35.2 [facility] Comment on above: Performed By: #### B 12FOL, VITAD, IRON #### [facility] [address] [place] [address] Dr. Ekta Funk MCV (RBC) [Entitic vol] 94.2 fL Normal 81.0-99.0 [facility] Comment on above: Performed By: #### B 12FOL, VITAD, IRON #### [facility] [address] [address] [address] Ekta Funk MONO # 0.8 103/ul Normal 0.3-0.8 [facility] Comment on above: Performed By: #### B 12FOL, VITAD, IRON #### [facility] [address] [place] [address] Dr. Ekta Funk Monocytes/100 WBC (Bld) 7.3 % Normal 1.7-12.0 [facility] Comment on above: Performed By: #### B 12FOL, VITAD, IRON #### [facility] [address] [place] [address] Dr. Ekta Funk NEUT # 8.1 103/ul Critically high 1.4-6.5 [facility] Comment on above: Performed By: #### B 12FOL, VITAD, IRON #### [facility] [address] [place] [address] Dr. Ekta Funk Neutrophils/100 WBC (Bld) 74.8 % Normal 43.0-75.0 [facility] Comment on above: Performed By: #### B 12FOL, VITAD, IRON #### [facility] [address] [place] [address] Dr. Ekta Funk Platelet mean volume (Bld) [Entitic vol] 9.8 fL Normal 9.5-13.5 [facility] Comment on above: Performed By: #### B 12FOL, VITAD, IRON #### [facility] [address] [place] [address] Dr. Ekta Funk PLT 226 103/ul Normal 150-450 [facility] Comment on above: Performed By: #### B 12FOL, VITAD, IRON #### [facility] [address] [place] [address] Dr. Ekta Funk RBC 4.33 106/ul Normal 4.20-5.40 [facility] Comment on above: Performed By: #### B 12FOL, VITAD, IRON #### [facility] [address] [place] [address] Dr. Ekta Funk WBC 10.9 103/ul Normal 4.0-11.0 [facility] Comment on above: Performed By: #### B 12FOL, VITAD, IRON #### [facility] [address] [place] [address] Dr. Ekta Funk PROF 14(COMP METB)on 023 Albumin [Mass/Vol] 3.1 g/dL Critically low 3.4-5.0 [facility] Comment on above: Performed By: #### B 12FOL, VITAD, IRON #### [facility] [address] [place] [address] Dr. Ekta Funk Albumin/Globulin [Mass ratio] 0.7 {ratio} Normal [facility] Comment on above: Performed By: #### B 12FOL, VITAD, IRON #### [facility] [address] [place] [address] Dr. Ekta Funk ALP [Catalytic activity/Vol] 81 U/L Normal 46-116 [facility] Comment on above: Performed By: #### B 12FOL, VITAD, IRON #### [facility] [address] [place] [address] Dr. Ekta Funk ALT [Catalytic activity/Vol] 30 U/L Normal 14-59 [facility] Comment on above: Performed By: #### B 12FOL, VITAD, IRON #### [facility] [address] [place] [address] Dr. Ekta Funk Anion gap [Moles/Vol] 17.3 mmol/L Normal [facility] Comment on above: Performed By: #### B 12FOL, VITAD, IRON #### [facility] [address] [place] [address] Dr. Ekta Funk AST [Catalytic activity/Vol] 11 U/L Critically low 15-37 [facility] Comment on above: Performed By: #### B 12FOL, VITAD, IRON #### [facility] [address] [place] [address] Dr. Ekta Funk Bilirubin [Mass/Vol] 0.5 mg/dL Normal 0.2-1.0 [facility] Comment on above: Performed By: #### B 12FOL, VITAD, IRON #### [facility] [address] [place] [address] Dr. Ekta Funk Calcium [Mass/Vol] 8.6 mg/dL Normal 8.5-10.1 [facility] Comment on above: Performed By: #### B 12FOL, VITAD, IRON #### [facility] [address] [address] [address] Ekta Funk Chloride [Moles/Vol] 95 mmol/L Critically low 98-107 [facility] Comment on above: Performed By: #### B 12FOL, VITAD, IRON #### [facility] [address] [place] [address] Dr. Ekta Funk CO2 [Moles/Vol] 27.3 mmol/L Normal 21.0-32.0 [facility] Comment on above: Performed By: #### B 12FOL, VITAD, IRON #### [facility] [address] [place] [address] Dr. Ekta Funk Creatinine [Mass/Vol] 3.17 mg/dL Critically high 0.55-1.02 [facility] Comment on above: Performed By: #### B 12FOL, VITAD, IRON #### [facility] [address] [place] [address] Dr. Ekta Funk EGFR-AF QATARI 17 mL/min/1.73m2 Critically low >=60 [facility] Comment on above: Performed By: #### B 12FOL, VITAD, IRON #### [facility] [address] [place] [address] Dr. Ekta Funk EGFR-NON AF QATARI 14 mL/min/1.73m2 Critically low >=60 [facility] Comment on above: Performed By: #### B 12FOL, VITAD, IRON #### [facility] [address] [place] [address] Dr. Ekta Funk Globulin (S) [Mass/Vol] 4.6 g/dL Normal [facility] Comment on above: Performed By: #### B 12FOL, VITAD, IRON #### [facility] [address] [address] [address] Ekta Funk Glucose [Mass/Vol] 139 mg/dL Critically high 74-106 T [facility] Comment on above: Performed By: #### B 12FOL, VITAD, IRON #### [facility] [address] [address] [address] Ekta Funk Potassium [Moles/Vol] 4.6 mmol/L Normal 3.5-5.1 [facility] Comment on above: Performed By: #### B 12FOL, VITAD, IRON #### [facility] [address] [place] [address] Dr. Ekta Funk Protein [Mass/Vol] 7.7 g/dL Normal 6.4-8.2 [facility] Comment on above: Performed By: #### B 12FOL, VITAD, IRON #### [facility] [address] [place] [address] Dr. Ekta Funk Sodium [Moles/Vol] 135 mmol/L Critically low 136-145 [facility] Comment on above: Performed By: #### B 12FOL, VITAD, IRON #### [facility] [address] [place] [address] Dr. Ekta Funk Urea nitrogen [Mass/Vol] 73.0 mg/dL Critically high 7.0-18.0 [facility] Comment on above: Performed By: #### B 12FOL, VITAD, IRON #### [facility] [address] [place] [address] Dr. Ekta Funk Urea nitrogen/Creatinine [Mass ratio] 23.0 mg/mg Normal [facility] Comment on above: Performed By: #### B 12FOL, VITAD, IRON #### [facility] [address] [place] [address] Dr. Ekta Funk BNPon 10-21-2022 Natriuretic peptide B (Bld) [Mass/Vol] 2007.0 pg/mL Critically high <=900.0 [facility] Comment on above: Performed By: #### C MP #### [facility] [address] [address] [address] kEta Funk CBC AUTO DIFFon 10-21-2022 BASO # 0.0 103/ul Normal 0.0-0.1 [facility] Comment on above: Performed By: #### C BC #### [facility] [address] [address] [address] Ekta Funk Basophils/100 WBC (Bld) 0.2 % Normal 0.2-2.0 [facility] Comment on above: Performed By: #### C BC #### [facility] [address] [place] [address] Dr. Ekta Funk EO # 0.1 103/ul Normal 0.0-0.7 [facility] Comment on above: Performed By: #### C BC #### [facility] [address] [place] [address] Dr. Ekta Funk Eosinophils/100 WBC (Bld) 0.9 % Normal 0.9-7.0 [facility] Comment on above: Performed By: #### C BC #### [facility] [address] [place] [address] Dr. Ekta Funk Erythrocyte distribution width (RBC) [Ratio] 12.8 % Normal 11.0-15.0 [facility] Comment on above: Performed By: #### C BC #### [facility] [address] [place] [address] Dr. Ekta Funk Hematocrit (Bld) [Volume fraction] 38.8 % Normal 36.0-48.0 [facility] Comment on above: Performed By: #### C BC #### [facility] [address] [place] [address] Dr. Ekta Funk Hemoglobin (Bld) [Mass/Vol] 13.3 g/dL Normal 12.0-16.0 [facility] Comment on above: Performed By: #### C BC #### [facility] [address] [place] [address] Dr. Ekta Funk IG # 0.08 10e3/ul Critically high 0.00-0.03 [facility] Comment on above: Performed By: #### C BC #### [facility] [address] [address] [address] Ekta Funk IG % 0.8 % Critically high 0.0-0.5 [facility] Comment on above: Performed By: #### C BC #### [facility] [address] [place] [address] Dr. Ekta Funk LYMPH # 1.7 103/ul Normal 1.2-3.8 [facility] Comment on above: Performed By: #### C BC #### [facility] [address] [place] [address] Dr. Ekta Funk Lymphocytes/100 WBC (Bld) 17.3 % Critically low 20.5-60.0 [facility] Comment on above: Performed By: #### C BC #### [facility] [address] [place] [address] Dr. Ekta Funk MANUAL DIFF REQ NO Normal [facility] Comment on above: Performed By: #### C BC #### [facility] [address] [place] [address] Dr. Ekta Funk MCH (RBC) [Entitic mass] 32.1 pg Normal 26.7-34.0 [facility] Comment on above: Performed By: #### C BC #### [facility] [address] [place] [address] Dr. Ekta Funk MCHC (RBC) [Mass/Vol] 34.3 g/dL Normal 29.9-35.2 [facility] Comment on above: Performed By: #### C BC #### [facility] [address] [place] [address] Dr. Ekta Funk MCV (RBC) [Entitic vol] 93.7 fL Normal 81.0-99.0 [facility] Comment on above: Performed By: #### C BC #### [facility] [address] [place] [address] Dr. Ekta Funk MONO # 0.6 103/ul Normal 0.3-0.8 [facility] Comment on above: Performed By: #### C BC #### [facility] [address] [address] [address] Ekta Funk Monocytes/100 WBC (Bld) 6.4 % Normal 1.7-12.0 [facility] Comment on above: Performed By: #### C BC #### [facility] [address] [address] [address] Ekta Funk NEUT # 7.4 103/ul Critically high 1.4-6.5 [facility] Comment on above: Performed By: #### C BC #### [facility] [address] [address] [address] Ekta Funk Neutrophils/100 WBC (Bld) 74.4 % Normal 43.0-75.0 [facility] Comment on above: Performed By: #### C BC #### [facility] [address] [place] [address] Dr. Ekta Funk Platelet mean volume (Bld) [Entitic vol] 9.8 fL Normal 9.5-13.5 [facility] Comment on above: Performed By: #### C BC #### [facility] [address] [place] [address] Dr. Ekta Funk PLT 193 103/ul Normal 150-450 [facility] Comment on above: Performed By: #### C BC #### [facility] [address] [place] [address] Dr. Ekta Funk RBC 4.14 106/ul Critically low 4.20-5.40 [facility] Comment on above: Performed By: #### C BC #### [facility] [address] [place] [address] Dr. Ekta Funk WBC 9.9 103/ul Normal 4.0-11.0 [facility] Comment on above: Performed By: #### C BC #### [facility] [address] [place] [address] Dr. Ekta Funk PROF 14(COMP METB)on 023 Albumin [Mass/Vol] 3.2 g/dL Critically low 3.4-5.0 [facility] Comment on above: Performed By: #### I NSULIN #### [facility] [address] [address] [address] Ekta Funk Albumin/Globulin [Mass ratio] 0.8 {ratio} Normal [facility] Comment on above: Performed By: #### I NSULIN #### [facility] [address] [address] [address] Ekta Funk ALP [Catalytic activity/Vol] 82 U/L Normal 46-116 [facility] Comment on above: Performed By: #### I NSULIN #### [facility] [address] [address] [address] Ekta Funk ALT [Catalytic activity/Vol] 38 U/L Normal 14-59 [facility] Comment on above: Performed By: #### I NSULIN #### [facility] [address] [place] [address] Dr. Ekta Funk Anion gap [Moles/Vol] 19.1 mmol/L Normal [facility] Comment on above: Performed By: #### I NSULIN #### [facility] [address] [place] [address] Dr. Ekta Funk AST [Catalytic activity/Vol] 19 U/L Normal 15-37 [facility] Comment on above: Performed By: #### I NSULIN #### [facility] [address] [place] [address] Dr. Ekta Funk Bilirubin [Mass/Vol] 0.4 mg/dL Normal 0.2-1.0 [facility] Comment on above: Performed By: #### I NSULIN #### [facility] [address] [place] [address] Dr. Ekta Funk Calcium [Mass/Vol] 9.2 mg/dL Normal 8.5-10.1 [facility] Comment on above: Performed By: #### I NSULIN #### [facility] [address] [place] [address] Dr. Ekta Funk Chloride [Moles/Vol] 98 mmol/L Normal 98-107 [facility] Comment on above: Performed By: #### I NSULIN #### [facility] [address] [address] [address] Ekta Funk CO2 [Moles/Vol] 26.4 mmol/L Normal 21.0-32.0 [facility] Comment on above: Performed By: #### I NSULIN #### [facility] [address] [address] [address] Ekta Funk Creatinine [Mass/Vol] 2.20 mg/dL Critically high 0.55-1.02 [facility] Comment on above: Performed By: #### I NSULIN #### [facility] [address] [address] [address] Ekta Funk EGFR-AF QATARI 26 mL/min/1.73m2 Critically low >=60 [facility] Comment on above: Performed By: #### I NSULIN #### [facility] [address] [address] [address] Ekta Funk EGFR-NON AF QATARI 22 mL/min/1.73m2 Critically low >=60 [facility] Comment on above: Performed By: #### I NSULIN #### [facility] [address] [address] [address] Ekta Funk Globulin (S) [Mass/Vol] 3.8 g/dL Normal [facility] Comment on above: Performed By: #### I NSULIN #### [facility] [address] [address] [address] Ekta Funk Glucose [Mass/Vol] 142 mg/dL Critically high 74-106 T [facility] Comment on above: Performed By: #### I NSULIN #### [facility] [address] [address] [address] kEta Funk Potassium [Moles/Vol] 4.5 mmol/L Normal 3.5-5.1 [facility] Comment on above: Performed By: #### I NSULIN #### [facility] [address] [address] [address] Ekta Funk Protein [Mass/Vol] 7.0 g/dL Normal 6.4-8.2 [facility] Comment on above: Performed By: #### I NSULIN #### [facility] [address] [address] [address] Ekta Funk Sodium [Moles/Vol] 139 mmol/L Normal 136-145 [facility] Comment on above: Performed By: #### I NSULIN #### [facility] [address] [address] [address] Ekta Funk Urea nitrogen [Mass/Vol] 57.0 mg/dL Critically high 7.0-18.0 [facility] Comment on above: Performed By: #### I NSULIN #### [facility] [address] [address] [address] Ekta Funk Urea nitrogen/Creatinine [Mass ratio] 25.9 mg/mg Normal [facility] Comment on above: Performed By: #### I NSULIN #### [facility] [address] [address] [address] Ekta Funk T3, TOTAL (TRIIODOTHYRONINE) on 10-21-2022 T3, TOTAL 63 ng/dL Critically low 71-180 [facility] Comment on above: Performed By: #### C MP #### [facility] [address] [address] [address] Ekta Funk XR ABD FLAT_UPon 10-21-2022 [...] by: VISHNU MARIE Date: 2022-10-21 11:42 Normal [facility] XR CHEST 2 [place] 10-21-2022 XR CHEST [...] by: CHRISTIANO MORALES Date: 2022-10-21 11:23 Normal [facility] BNPon 10-20-2022 Natriuretic peptide B (Bld) [Mass/Vol] 2512.0 pg/mL Critically high <=900.0 [facility] Comment on above: Performed By: #### B DEVANGLNENOAD, IRON #### [facility] [address] [place] [address] Dr. Ekta Funk CARDIAC BRITTANIE ADMITon 023 CK [Catalytic activity/Vol] 35 U/L Normal 26-192 [facility] Comment on above: Performed By: #### B CAROLYN LAUGHLIN, IRON #### [facility] [address] [place] [address] Dr. Ekta Funk CK.MB [Mass/Vol] 0.64 ng/mL Normal <=3.60 [facility] Comment on above: Performed By: #### B ElviraFOL VITAD, IRON #### [facility] [address] [place] [address] Dr. Ekta Funk HSTROP 28.1 pg/mL Normal 4.0-51.3 [facility] Comment on above: Result Comment: CUT- OFF POINTS HAVE BEEN ESTABLISHED BASED ON THE FOURTH UNIVERSAL DEFINITIONS OF MYOCARDIAL INFARCTION. THE UPPER REFERENCE LIMIT (URL) OF TROPONIN, DEFINED THE 99TH PERCENTILE OF cTnI DISTRIBUTION IN A REFERENCE POPULATION, HAS BEEN CONFIRMED THE DECISION THRESHOLD FOR [place] DIAGNOSIS. Performed By: #### B 12FOL VITAD, IRON #### [facility] [address] [place] [address] Dr. Ekta Funk EVELYN 57 ng/mL Normal 9-82 [facility] Comment on above: Performed By: #### B ElviraFOL VITAD, IRON #### [facility] [address] [place] [address] Dr. Ekta Funk CBC AUTO DIFFon 10-20-2022 BASO # 0.0 103/ul Normal 0.0-0.1 [facility] Comment on above: Performed By: #### C BC #### [facility] [address] [address] [address] Ekta Funk Basophils/100 WBC (Bld) 0.2 % Normal 0.2-2.0 [facility] Comment on above: Performed By: #### C BC #### [facility] [address] [address] [address] Ekta Funk EO # 0.2 103/ul Normal 0.0-0.7 [facility] Comment on above: Performed By: #### C BC #### [facility] [address] [address] [address] Ekta Funk Eosinophils/100 WBC (Bld) 1.4 % Normal 0.9-7.0 [facility] Comment on above: Performed By: #### C BC #### [facility] [address] [place] [address] Dr. Ekta Funk Erythrocyte distribution width (RBC) [Ratio] 12.9 % Normal 11.0-15.0 [facility] Comment on above: Performed By: #### C BC #### [facility] [address] [place] [address] Dr. Ekta Funk Hematocrit (Bld) [Volume fraction] 34.7 % Critically low 36.0-48.0 [facility] Comment on above: Performed By: #### C BC #### [facility] [address] [place] [address] Dr. Ekta Funk Hemoglobin (Bld) [Mass/Vol] 11.8 g/dL Critically low 12.0-16.0 [facility] Comment on above: Performed By: #### C BC #### [facility] [address] [address] [address] Ekta Funk IG # 0.09 10e3/ul Critically high 0.00-0.03 [facility] Comment on above: Performed By: #### C BC #### [facility] [address] [address] [address] Ekta Funk IG % 0.8 % Critically high 0.0-0.5 [facility] Comment on above: Performed By: #### C BC #### [facility] [address] [place] [address] Dr. Ekta Funk LYMPH # 1.9 103/ul Normal 1.2-3.8 [facility] Comment on above: Performed By: #### C BC #### [facility] [address] [place] [address] Dr. Ekta Funk Lymphocytes/100 WBC (Bld) 16.1 % Critically low 20.5-60.0 [facility] Comment on above: Performed By: #### C BC #### [facility] [address] [place] [address] Dr. Ekta Funk MANUAL DIFF REQ NO Normal [facility] Comment on above: Performed By: #### C BC #### [facility] [address] [place] [address] Dr. Ekta Funk MCH (RBC) [Entitic mass] 32.6 pg Normal 26.7-34.0 [facility] Comment on above: Performed By: #### C BC #### [facility] [address] [place] [address] Dr. Ekta Funk MCHC (RBC) [Mass/Vol] 34.0 g/dL Normal 29.9-35.2 [facility] Comment on above: Performed By: #### C BC #### [facility] [address] [place] [address] Dr. Ekta Funk MCV (RBC) [Entitic vol] 95.9 fL Normal 81.0-99.0 [facility] Comment on above: Performed By: #### C BC #### [facility] [address] [place] [address] Dr. Ekta Funk MONO # 0.8 103/ul Normal 0.3-0.8 [facility] Comment on above: Performed By: #### C BC #### [facility] [address] [place] [address] Dr. Ekta Funk Monocytes/100 WBC (Bld) 7.0 % Normal 1.7-12.0 [facility] Comment on above: Performed By: #### C BC #### [facility] [address] [place] [address] Dr. Ekta Funk NEUT # 8.8 103/ul Critically high 1.4-6.5 [facility] Comment on above: Performed By: #### C BC #### [facility] [address] [place] [address] Dr. Ekta Funk Neutrophils/100 WBC (Bld) 74.5 % Normal 43.0-75.0 [facility] Comment on above: Performed By: #### C BC #### [facility] [address] [place] [address] Dr. Ekta Funk Platelet mean volume (Bld) [Entitic vol] 9.8 fL Normal 9.5-13.5 [facility] Comment on above: Performed By: #### C BC #### [facility] [address] [place] [address] Dr. Ekta Funk PLT 203 103/ul Normal 150-450 [facility] Comment on above: Performed By: #### C BC #### [facility] [address] [place] [address] Dr. Ekta Funk RBC 3.62 106/ul Critically low 4.20-5.40 [facility] Comment on above: Performed By: #### C BC #### [facility] [address] [place] [address] Dr. Ekta Funk WBC 11.8 103/ul Critically high 4.0-11.0 [facility] Comment on above: Performed By: #### C BC #### [facility] [address] [place] [address] Dr. Ekta Funk CULTURE URINEon 10-20-2022 CULTURE URINE Culture Observations : NO GROWTH. Normal [facility] Comment on above: Performed By: #### I NSULIN #### [facility] [address] [place] [address] Dr. Ekta Funk Covid-19 PCR (CVDTB)on 10-11 SARS-CoV-2 (COVID-19) RNA GANESH+probe Ql (Unsp spec) Not detected Normal NOT DETECTED [facility] Comment on above: Result Comment: When diagnostic [...] for this test is supported by the [employer] of [employer] and Human Service's declaration [...] By: #### B 12FOL, VITAD, IRON #### [facility] [address] [address] [address] Ekta Funk ECHOCARDIO M/2D COMPLETEon 0 10-20-2022 ECHOCARDIO M/2D COMPLETE Patient: SHEILA MAC Exam Date: 10/20/2022 : 1950 Gender:F Ordering : DR KRZYSZTOF HARP . Admission #: [id number] Family : Order #: [id number] CLICK HERE TO VIEW EXAM ECHOCARDIOGRAM REPORT [...] Mckay M.D. on 10/20/2022 at 14:57 Normal [facility] PROF 14(COMP METB)on 023 Albumin [Mass/Vol] 2.8 g/dL Critically low 3.4-5.0 [facility] Comment on above: Performed By: #### B 12FOL, VITAD, IRON #### [facility] [address] [address] [address] Ekta Funk Albumin/Globulin [Mass ratio] 0.7 {ratio} Normal [facility] Comment on above: Performed By: #### B 12FOL, VITAD, IRON #### [facility] [address] [address] [address] Ekta Funk ALP [Catalytic activity/Vol] 84 U/L Normal 46-116 [facility] Comment on above: Performed By: #### B 12FOL, VITAD, IRON #### [facility] [address] [address] [address] Ekta Funk ALT [Catalytic activity/Vol] 29 U/L Normal 14-59 [facility] Comment on above: Performed By: #### B 12FOL, VITAD, IRON #### [facility] [address] [address] [address] Ekta Funk Anion gap [Moles/Vol] 15.9 mmol/L Normal [facility] Comment on above: Performed By: #### B 12FOL, VITAD, IRON #### [facility] [address] [address] [address] Ekta Funk AST [Catalytic activity/Vol] 15 U/L Normal 15-37 [facility] Comment on above: Performed By: #### B 12FOL, VITAD, IRON #### [facility] [address] [address] [address] Ekta Funk Bilirubin [Mass/Vol] 0.3 mg/dL Normal 0.2-1.0 [facility] Comment on above: Performed By: #### B 12FOL, VITAD, IRON #### [facility] [address] [place] [address] Dr. Ekta Funk Calcium [Mass/Vol] 8.9 mg/dL Normal 8.5-10.1 [facility] Comment on above: Performed By: #### B 12FOL, VITAD, IRON #### [facility] [address] [place] [address] Dr. Ekta Funk Chloride [Moles/Vol] 103 mmol/L Normal 98-107 [facility] Comment on above: Performed By: #### B 12FOL, VITAD, IRON #### [facility] [address] [place] [address] Dr. Ekta Funk CO2 [Moles/Vol] 26.3 mmol/L Normal 21.0-32.0 [facility] Comment on above: Performed By: #### B 12FOL, VITAD, IRON #### [facility] [address] [place] [address] Dr. Ekta Funk Creatinine [Mass/Vol] 1.99 mg/dL Critically high 0.55-1.02 [facility] Comment on above: Performed By: #### B 12FOL, VITAD, IRON #### [facility] [address] [place] [address] Dr. Ekta Funk EGFR-AF QATARI 30 mL/min/1.73m2 Critically low >=60 [facility] Comment on above: Performed By: #### B 12FOL, VITAD, IRON #### [facility] [address] [place] [address] Dr. Ekta Funk EGFR-NON AF QATARI 24 mL/min/1.73m2 Critically low >=60 [facility] Comment on above: Performed By: #### B 12FOL, VITAD, IRON #### [facility] [address] [place] [address] Dr. Ekta Funk Globulin (S) [Mass/Vol] 4.1 g/dL Normal [facility] Comment on above: Performed By: #### B 12FOL, VITAD, IRON #### [facility] [address] [address] [address] Ekta Funk Glucose [Mass/Vol] 115 mg/dL Critically high 74-106 [facility] Comment on above: Performed By: #### B 12FOL, VITAD, IRON #### [facility] [address] [place] [address] Dr. Ekta Funk Potassium [Moles/Vol] 5.2 mmol/L Critically high 3.5-5.1 [facility] Comment on above: Performed By: #### B 12FOL, VITAD, IRON #### [facility] [address] [place] [address] Dr. Ekta Funk Protein [Mass/Vol] 6.9 g/dL Normal 6.4-8.2 [facility] Comment on above: Performed By: #### B 12FOL, VITAD, IRON #### [facility] [address] [place] [address] Dr. Ekta Funk Sodium [Moles/Vol] 140 mmol/L Normal 136-145 [facility] Comment on above: Performed By: #### B 12FOL, VITAD, IRON #### [facility] [address] [place] [address] Dr. Ekta Funk Urea nitrogen [Mass/Vol] 45.0 mg/dL Critically high 7.0-18.0 [facility] Comment on above: Performed By: #### B 12FOL, VITAD, IRON #### [facility] [address] [place] [address] Dr. Ekta Funk Urea nitrogen/Creatinine [Mass ratio] 22.6 mg/mg Normal [facility] Comment on above: Performed By: #### B 12FOL, VITAD, IRON #### [facility] [address] [place] [address] Dr. Ekta Funk T4on 10-20-2022 T4 [Mass/Vol] 6.10 ug/dL Normal 4.80-13.90 [facility] Comment on above: Performed By: #### B 12FOL, VITAD, IRON #### [facility] [address] [place] [address] Dr. Ekta Funk TSHon 10-20-2022 TSH 1.336 uIU/mL Normal 0.358-3.740 [facility] Comment on above: Performed By: #### B 12FOL, VITAD, IRON #### [facility] [address] [place] [address] Dr. Ekta Funk UA RANDOM W/MICROSCOPICon BACTERIA TRACE Abnormal NONE SEEN [facility] Comment on above: Performed By: #### B 12FOL, VITAD, IRON #### [facility] [address] [place] [address] Dr. Ekta Funk Bilirubin Ql (U) Negative Normal NEGATIVE [facility] Comment on above: Performed By: #### B 12FOL, VITAD, IRON #### [facility] [address] [place] [address] Dr. Ekta Funk CAST NONE SEEN Normal NONE SEEN [facility] Comment on above: Performed By: #### B 12FOL, VITAD, IRON #### [facility] [address] [place] [address] Dr. Ekta Funk Clarity (U) CLEAR Normal CLEAR [facility] Comment on above: Performed By: #### B 12FOL, VITAD, IRON #### [facility] [address] [place] [address] Dr. Ekta Funk Color (U) LT. YELLOW Normal YELLOW [facility] Comment on above: Performed By: #### B 12FOL, VITAD, IRON #### [facility] [address] [place] [address] Dr. Ekta Funk Crystals LM Nom (Urine sed) NONE SEEN Normal NONE SEEN [facility] Comment on above: Performed By: #### B 12FOL, VITAD, IRON #### [facility] [address] [place] [address] Dr. Ekta Funk Epithelial cells LM Ql (Urine sed) RARE Normal NONE SEEN /RARE [facility] Comment on above: Performed By: #### B 12FOL, VITAD, IRON #### [facility] [address] [address] [address] Ekta Funk Glucose Ql (U) Negative Normal NEGATIVE [facility] Comment on above: Performed By: #### B 12FOL, VITAD, IRON #### [facility] [address] [address] [address] Ekta Funk Hemoglobin Ql (U) Negative Normal NEGATIVE [facility] Comment on above: Performed By: #### B 12FOL, VITAD, IRON #### [facility] [address] [place] [address] Dr. Ekta Funk Ketones Ql (U) Negative Normal NEGATIVE [facility] Comment on above: Performed By: #### B 12FOL, VITAD, IRON #### [facility] [address] [place] [address] Dr. Ekta Funk LEUKOCYTES Negative Normal NEGATIVE [facility] Comment on above: Performed By: #### B 12FOL, VITAD, IRON #### [facility] [address] [place] [address] Dr. Ekta Funk MUCOUS NONE SEEN Normal NONE SEEN [facility] Comment on above: Performed By: #### B 12FOL, VITAD, IRON #### [facility] [address] [address] [address] Ekta Funk Nitrite Ql (U) Negative Normal NEGATIVE [facility] Comment on above: Performed By: #### B 12FOL, VITAD, IRON #### [facility] [address] [address] [address] Ekta Funk pH (U) 6.0 [pH] Normal 5-9 [facility] Comment on above: Performed By: #### B 12FOL, VITAD, IRON #### [facility] [address] [place] [address] Dr. Ekta Funk RBC 0-2 Normal 0-2 [facility] Comment on above: Performed By: #### B 12FOL, VITAD, IRON #### [facility] [address] [place] [address] Dr. Ekta Funk SPEC GRAVITY <=1.005 Abnormal 1.005-<=1.025 [facility] Comment on above: Performed By: #### B 12FOL, VITAD, IRON #### [facility] [address] [place] [address] Dr. Ekta Funk UA PROTEIN Negative Normal NEGATIVE/ TRACE [facility] Comment on above: Performed By: #### B 12FOL, VITAD, IRON #### [facility] [address] [place] [address] Dr. Ekta Funk Urobilinogen Qn (U) 0.2 {Ivan'U}/dL Normal 0.2 - 1. 0 [facility] Comment on above: Performed By: #### B 12FOL, VITAD, IRON #### [facility] [address] [place] [address] Dr. Ekta Funk WBC NONE SEEN Normal NONE SEEN [facility] Comment on above: Performed By: #### B 12FOL, VITAD, IRON #### [facility] [address] [place] [address] Dr. Ekta Funk BNPon 10-19-2022 Natriuretic peptide B (Bld) [Mass/Vol] 1355.0 pg/mL Critically high <=900.0 [facility] Comment on above: Performed By: #### B 12FOL, VITAD, IRON #### [facility] [address] [place] [address] Dr. Ekta Funk INSULINon 10-19-2022 Insulin 12.4 uIU/mL Normal 2.6-24.9 [facility] Comment on above: Performed By: #### I NSULIN #### [facility] [address] [place] [address] Dr. Ekta Funk OCC BLD IMMUNO SCREENon OCCULT BLOOD Positive Abnormal NEGATIVE [facility] Comment on above: Performed By: #### B 12FOL, VITAD, IRON #### [facility] [address] [place] [address] Dr. Ekta Funk PROF CHEM 8 (BAS METB)on Anion gap [Moles/Vol] 15.8 mmol/L Normal [facility] Comment on above: Performed By: #### B 12FOL, VITAD, IRON #### [facility] [address] [place] [address] Dr. Ekta Funk Calcium [Mass/Vol] 8.8 mg/dL Normal 8.5-10.1 [facility] Comment on above: Performed By: #### B 12FOL, VITAD, IRON #### [facility] [address] [place] [address] Dr. Ekta Funk Chloride [Moles/Vol] 107 mmol/L Normal 98-107 [facility] Comment on above: Performed By: #### B 12FOL, VITAD, IRON #### [facility] [address] [place] [address] Dr. Ekta Funk CO2 [Moles/Vol] 21.5 mmol/L Normal 21.0-32.0 [facility] Comment on above: Performed By: #### B 12FOL, VITAD, IRON #### [facility] [address] [place] [address] Dr. Ekta Funk Creatinine [Mass/Vol] 1.62 mg/dL Critically high 0.55-1.02 [facility] Comment on above: Performed By: #### B 12FOL, VITAD, IRON #### [facility] [address] [place] [address] Dr. Ekta Funk EGFR-AF QATARI 38 mL/min/1.73m2 Critically low >=60 [facility] Comment on above: Performed By: #### B 12FOL, VITAD, IRON #### [facility] [address] [place] [address] Dr. Ekta Funk EGFR-NON AF QATARI 31 mL/min/1.73m2 Critically low >=60 [facility] Comment on above: Performed By: #### B 12FOL, VITAD, IRON #### [facility] [address] [place] [address] Dr. Ekta Funk Glucose [Mass/Vol] 134 mg/dL Critically high 74-106 [facility] Comment on above: Performed By: #### B 12FOL, VITAD, IRON #### [facility] [address] [address] [address] Ekta Funk Potassium [Moles/Vol] 5.3 mmol/L Critically high 3.5-5.1 [facility] Comment on above: Performed By: #### B 12FOL, VITAD, IRON #### [facility] [address] [place] [address] Dr. Ekta Funk Sodium [Moles/Vol] 139 mmol/L Normal 136-145 [facility] Comment on above: Performed By: #### B 12FOL, VITAD, IRON #### [facility] [address] [address] [address] Ekta Funk Urea nitrogen [Mass/Vol] 37.0 mg/dL Critically high 7.0-18.0 [facility] Comment on above: Performed By: #### B 12FOL, VITAD, IRON #### [facility] [address] [address] [address] Ekta Funk Urea nitrogen/Creatinine [Mass ratio] 22.8 mg/mg Normal [facility] Comment on above: Performed By: #### B 12FOL, VITAD, IRON #### [facility] [address] [place] [address] Dr. Ekta Funk TROPONIN, HIGH SENSITIVITYon 10-19-2022 HSTROP 53.2 pg/mL Critically high 4.0-51.3 [facility] Comment on above: Result Comment: CUT- OFF POINTS HAVE BEEN ESTABLISHED BASED ON THE FOURTH UNIVERSAL DEFINITIONS OF MYOCARDIAL INFARCTION. THE UPPER REFERENCE LIMIT (URL) OF TROPONIN, DEFINED THE 99TH PERCENTILE OF cTnI DISTRIBUTION IN A REFERENCE POPULATION, HAS BEEN CONFIRMED THE DECISION THRESHOLD FOR [place] DIAGNOSIS. Performed By: #### B 12FOL, VITAD, IRON #### [facility] [address] [place] [address] Dr. Ekta Funk BNPon 10-18-2022 Natriuretic peptide B (Bld) [Mass/Vol] 1386.0 pg/mL Critically high <=900.0 [facility] Comment on above: Performed By: #### C VDTBH #### [facility] [address] [place] [address] Dr. Ekta Funk CARDIAC BRITTANIE ADMITon 023 CK [Catalytic activity/Vol] 34 U/L Normal 26-192 [facility] Comment on above: Performed By: #### C VDTBH #### [facility] [address] [place] [address] Dr. Ekta Funk CK.MB [Mass/Vol] 1.43 ng/mL Normal <=3.60 [facility] Comment on above: Performed By: #### C VDTBH #### [facility] [address] [place] [address] Dr. Ekta Funk HSTROP 74.1 pg/mL Critically high 4.0-51.3 [facility] Comment on above: Result Comment: CUT- OFF POINTS HAVE BEEN ESTABLISHED BASED ON THE FOURTH UNIVERSAL DEFINITIONS OF MYOCARDIAL INFARCTION. THE UPPER REFERENCE LIMIT (URL) OF TROPONIN, DEFINED THE 99TH PERCENTILE OF cTnI DISTRIBUTION IN A REFERENCE POPULATION, HAS BEEN CONFIRMED THE DECISION THRESHOLD FOR [place] DIAGNOSIS. Performed By: #### C VDTBH #### [facility] [address] [place] [address] Dr. Ekta Funk EVELYN 52 ng/mL Normal 9-82 [facility] Comment on above: Performed By: #### C VDTBH #### [facility] [address] [place] [address] Dr. Ekta Funk CBC AUTO DIFFon 10-18-2022 BASO # 0.0 103/ul Normal 0.0-0.1 [facility] Comment on above: Performed By: #### C BC #### [facility] [address] [place] [address] Dr. Ekta Funk Basophils/100 WBC (Bld) 0.3 % Normal 0.2-2.0 [facility] Comment on above: Performed By: #### C BC #### [facility] [address] [place] [address] Dr. Ekta Funk EO # 0.1 103/ul Normal 0.0-0.7 [facility] Comment on above: Performed By: #### C BC #### [facility] [address] [place] [address] Dr. Ekta Funk Eosinophils/100 WBC (Bld) 0.9 % Normal 0.9-7.0 [facility] Comment on above: Performed By: #### C BC #### [facility] [address] [place] [address] Dr. Ekta Funk Erythrocyte distribution width (RBC) [Ratio] 13.2 % Normal 11.0-15.0 [facility] Comment on above: Performed By: #### C BC #### [facility] [address] [place] [address] Dr. Ekta Funk Hematocrit (Bld) [Volume fraction] 38.9 % Normal 36.0-48.0 [facility] Comment on above: Performed By: #### C BC #### [facility] [address] [place] [address] Dr. Ekta Funk Hemoglobin (Bld) [Mass/Vol] 12.4 g/dL Normal 12.0-16.0 [facility] Comment on above: Performed By: #### C BC #### [facility] [address] [place] [address] Dr. Ekta Funk IG # 0.08 10e3/ul Critically high 0.00-0.03 [facility] Comment on above: Performed By: #### C BC #### [facility] [address] [place] [address] Dr. Ekta Funk IG % 0.5 % Normal 0.0-0.5 [facility] Comment on above: Performed By: #### C BC #### [facility] [address] [place] [address] Dr. Ekta Funk LYMPH # 1.4 103/ul Normal 1.2-3.8 [facility] Comment on above: Performed By: #### C BC #### [facility] [address] [place] [address] Dr. Ekta Funk Lymphocytes/100 WBC (Bld) 9.6 % Critically low 20.5-60.0 [facility] Comment on above: Performed By: #### C BC #### [facility] [address] [place] [address] Dr. Ekta Funk MANUAL DIFF REQ NO Normal [facility] Comment on above: Performed By: #### C BC #### [facility] [address] [place] [address] Dr. Ekta Funk MCH (RBC) [Entitic mass] 32.3 pg Normal 26.7-34.0 [facility] Comment on above: Performed By: #### C BC #### [facility] [address] [place] [address] Dr. Ekta Funk MCHC (RBC) [Mass/Vol] 31.9 g/dL Normal 29.9-35.2 [facility] Comment on above: Performed By: #### C BC #### [facility] [address] [place] [address] Dr. Ekta Funk MCV (RBC) [Entitic vol] 101.3 fL Critically high 81.0-99.0 [facility] Comment on above: Performed By: #### C BC #### [facility] [address] [place] [address] Dr. Ekta Funk MONO # 0.9 103/ul Critically high 0.3-0.8 [facility] Comment on above: Performed By: #### C BC #### [facility] [address] [place] [address] Dr. Ekta Funk Monocytes/100 WBC (Bld) 6.3 % Normal 1.7-12.0 [facility] Comment on above: Performed By: #### C BC #### [facility] [address] [place] [address] Dr. Ekta Funk NEUT # 12.0 103/ul Critically high 1.4-6.5 [facility] Comment on above: Performed By: #### C BC #### [facility] [address] [place] [address] Dr. Ekta Funk Neutrophils/100 WBC (Bld) 82.4 % Critically high 43.0-75.0 [facility] Comment on above: Performed By: #### C BC #### [facility] [address] [address] [address] Ekta Funk Platelet mean volume (Bld) [Entitic vol] 9.7 fL Normal 9.5-13.5 [facility] Comment on above: Performed By: #### C BC #### [facility] [address] [address] [address] Ekta Funk PLT 176 103/ul Normal 150-450 [facility] Comment on above: Performed By: #### C BC #### [facility] [address] [address] [address] Ekta Funk RBC 3.84 106/ul Critically low 4.20-5.40 [facility] Comment on above: Performed By: #### C BC #### [facility] [address] [address] [address] Ekta Funk WBC 14.6 103/ul Critically high 4.0-11.0 [facility] Comment on above: Performed By: #### C BC #### [facility] [address] [address] [address] Ekta Funk FREE THYROXINE INDEX T7on FTI 2.34 Normal 1.30-4.50 [facility] Comment on above: Performed By: #### C VDTBH #### [facility] [address] [place] [address] Dr. Ekta Funk T3U 36.0 % Normal 30.0-39.0 [facility] Comment on above: Performed By: #### C VDTBH #### [facility] [address] [address] [address] Ekta Funk T4 [Mass/Vol] 6.50 ug/dL Normal 4.80-13.90 [facility] Comment on above: Performed By: #### C VDTBH #### [facility] [address] [place] [address] Dr. Ekta Funk GLYCOHEMOGLOBIN A1Con 2022 ADA RECOMMENDATION SEE BELOW Normal [facility] Comment on above: Result Comment: ADA RECOMMENDED LIMIT 4.0 - 6.0 ADA THERAPEUTIC TARGET < 7.0 ACTION SUGGESTED > 7.0 Performed By: #### B 12FOL, VITAD, IRON #### [facility] [address] [address] [address] Ekta Funk Glucose [Mass/Vol] 140 mg/dL Normal [facility] Comment on above: Performed By: #### B 12FOL, VITAD, IRON #### [facility] [address] [address] [address] Ekta Funk HbA1c (Bld) [Mass fraction] 6.5 % Critically high 4.5-6.2 [facility] Comment on above: Performed By: #### B 12FOL, VITAD, IRON #### [facility] [address] [place] [address] Dr. Ekta Funk IRONon 10-18-2022 Iron [Mass/Vol] 62.0 ug/dL Normal 50.0-170.0 [facility] Comment on above: Performed By: #### B 12FOL, VITAD, IRON #### [facility] [address] [place] [address] Dr. Ekta Funk LIPID PROFILEon 10-18-2022 CHOL-HDL RATIO NORM SEE BELOW Normal [facility] Comment on above: Result Comment: 3.3 - 4.4 LOW RISK 4.4 - 7.1 AVERAGE RISK 7.1 - 11.0 MODERATE RISK >11.0 HIGH RISK Performed By: #### C VDTBH #### [facility] [address] [place] [address] Dr. Ekta Funk Cholesterol [Mass/Vol] 242 mg/dL Critically high <=200 [facility] Comment on above: Performed By: #### C VDTBH #### [facility] [address] [address] [address] Ekta Funk Cholesterol in HDL [Mass/Vol] 74 mg/dL Critically high 40-60 [facility] Comment on above: Performed By: #### C VDTBH #### [facility] [address] [place] [address] Dr. Ekta Funk Cholesterol in LDL [Mass/Vol] 139.4 mg/dL Normal [facility] Comment on above: Performed By: #### C VDTBH #### [facility] [address] [address] [address] Ekta Funk Cholesterol.total/Ch olesterol in HDL [Mass ratio] 3.3 {ratio} Normal [facility] Comment on above: Performed By: #### C VDTBH #### [facility] [address] [address] [address] Ekta Funk HDL NORMAL > or = 60 mg/dl - LO W CARDIOVASCULAR RISK <40 mg/dl - HIGH CARDIOVASCULAR RISK Normal [facility] Comment on above: Performed By: #### C VDTBH #### [facility] [address] [address] [address] Ekta Funk LDL CALC NORMAL SEE BELOW Normal [facility] Comment on above: Result Comment: <100 mg/dl OPTIMAL 100 - 129 mg/dl NEAR OR ABOVE OPTIMAL 130 - 159 mg/dl BORDERLINE HIGH 160 - 189 mg/dl HIGH >190 mg/dl VERY HIGH Performed By: #### C VDTBH #### [facility] [address] [address] [address] Ekta Funk Triglyceride [Mass/Vol] 143 mg/dL Normal <=150 [facility] Comment on above: Performed By: #### C VDTBH #### [facility] [address] [address] [address] Ekta Funk VLDL CALC 28.6 mg/dL Normal [facility] Comment on above: Performed By: #### C VDTBH #### [facility] [address] [address] [address] Ekta Funk PROF 14(COMP METB)on 023 Albumin [Mass/Vol] 2.8 g/dL Critically low 3.4-5.0 [facility] Comment on above: Performed By: #### C VDTBH #### [facility] [address] [place] [address] Dr. Ekta Funk Albumin/Globulin [Mass ratio] 0.7 {ratio} Normal [facility] Comment on above: Performed By: #### C VDTBH #### [facility] [address] [address] [address] Ekta Funk ALP [Catalytic activity/Vol] 90 U/L Normal 46-116 [facility] Comment on above: Performed By: #### C VDTBH #### [facility] [address] [address] [address] Ekta Funk ALT [Catalytic activity/Vol] 26 U/L Normal 14-59 [facility] Comment on above: Performed By: #### C VDTBH #### [facility] [address] [address] [address] Ekta Funk Anion gap [Moles/Vol] 14.5 mmol/L Normal [facility] Comment on above: Performed By: #### C VDTBH #### [facility] [address] [place] [address] Dr. Ekta Funk AST [Catalytic activity/Vol] 14 U/L Critically low 15-37 [facility] Comment on above: Performed By: #### C VDTBH #### [facility] [address] [address] [address] Ekta Funk Bilirubin [Mass/Vol] 0.4 mg/dL Normal 0.2-1.0 [facility] Comment on above: Performed By: #### C VDTBH #### [facility] [address] [place] [address] Dr. Ekta Funk Calcium [Mass/Vol] 8.9 mg/dL Normal 8.5-10.1 [facility] Comment on above: Performed By: #### C VDTBH #### [facility] [address] [address] [address] Ekta Funk Chloride [Moles/Vol] 106 mmol/L Normal 98-107 [facility] Comment on above: Performed By: #### C VDTBH #### [facility] [address] [address] [address] Ekta Funk CO2 [Moles/Vol] 23.5 mmol/L Normal 21.0-32.0 [facility] Comment on above: Performed By: #### C VDTBH #### [facility] [address] [address] [address] Ekta Funk Creatinine [Mass/Vol] 1.70 mg/dL Critically high 0.55-1.02 [facility] Comment on above: Performed By: #### C VDTBH #### [facility] [address] [address] [address] Ekta Funk EGFR-AF QATARI 36 mL/min/1.73m2 Critically low >=60 [facility] Comment on above: Performed By: #### C VDTBH #### [facility] [address] [address] [address] Ekta Funk EGFR-NON AF QATARI 29 mL/min/1.73m2 Critically low >=60 [facility] Comment on above: Performed By: #### C VDTBH #### [facility] [address] [place] [address] Dr. Ekta Funk Globulin (S) [Mass/Vol] 4.0 g/dL Normal [facility] Comment on above: Performed By: #### C VDTBH #### [facility] [address] [address] [address] Ekta Funk Glucose [Mass/Vol] 99 mg/dL Normal 74-106 [facility] Comment on above: Performed By: #### C VDTBH #### [facility] [address] [place] [address] Dr. Ekta Funk Potassium [Moles/Vol] 5.0 mmol/L Normal 3.5-5.1 [facility] Comment on above: Performed By: #### C VDTBH #### [facility] [address] [address] [address] Ekta Funk Protein [Mass/Vol] 6.8 g/dL Normal 6.4-8.2 [facility] Comment on above: Performed By: #### C VDTBH #### [facility] [address] [address] [address] Ekta Funk Sodium [Moles/Vol] 139 mmol/L Normal 136-145 [facility] Comment on above: Performed By: #### C VDTBH #### [facility] [address] [address] [address] Ekta Funk Urea nitrogen [Mass/Vol] 36.0 mg/dL Critically high 7.0-18.0 [facility] Comment on above: Performed By: #### C VDTB #### [facility] [address] [place] [address] Dr. Ekta Funk Urea nitrogen/Creatinine [Mass ratio] 21.2 mg/mg Normal [facility] Comment on above: Performed By: #### C VDTBH #### [facility] [address] [place] [address] Dr. Ekta Funk TSHon 10-18-2022 TSH 0.910 uIU/mL Normal 0.358-3.740 [facility] Comment on above: Performed By: #### C VDTBH #### [facility] [address] [place] [address] Dr. Ekta Funk Covid-19 PCR ([facility])on 09-10 SARS-CoV-2 (COVID-19) RNA GANESH+probe Ql (Unsp spec) Detected Abnormal NOT DETECTED [facility] Comment on above: Result Comment: This test is not yet approved or cleared by the [place] FDA. When there are no FDA-approved or cleared tests available, and other criteria are met, FDA can make tests available under an emergency access mechanism called an Emergency Use Authorization (EUA). The EUA for this test is supported by the [place] of Health and Human Service's declaration that [...] be used). Performed By: #### C #### [facility] [address] [place] [address] Dr. Ekta Funk INFLUENZA A AND B AGon 09-25 INFLUANEGH SEE BELOW Normal [facility] Comment on above: Result Comment: Nega tive for Flu A protein angiten. Infection due to Flu A cannot be ruled out. Flu A angiten in the sample may be below the detection limit of the test. Performed By: #### B 12FOL, VITAD, IRON #### [facility] [address] [address] [address] Ekta Funk INFLUEG SEE BELOW Normal [facility] Comment on above: Result Comment: Nega tive for Flu B protein antigen. Infection due to Flu B cannot be ruled out. Flu B antigen in the sample may be below the detection limit of the test. Performed By: #### B 12FOL, VITAD, IRON #### [facility] [address] [address] [address] Ekta Funk INFLUENZA A AG Negative Normal NEGATIVE SEE COMMENT [facility] Comment on above: Performed By: #### B 12FOL, VITAD, IRON #### [facility] [address] [address] [address] Ekta Funk INFLUENZA B AG Negative Normal NEGATIVE SEE COMMENT [facility] Comment on above: Performed By: #### B 12FOL, VITAD, IRON #### [facility] [address] [address] [address] Ekta Funk US CAROTID ART BILon [...] by: GODWIN BECK Date: 2022-05-26 16:06 Normal [facility] MRI BRAIN WO CONon 2 MRI BRAIN [...] by: VISHNU MARIE Date: 2022-05-25 10:45 Normal [facility] ECHOCARDIO M/2D COMPLETEon 0 05-24-2022 ECHOCARDIO M/2D COMPLETE Patient: SHEILA MAC Exam Date: 05/24/2022 : 1950 Gender:F Ordering : DR KRZYSZTOF HARP . Admission #: [id number] Family : Order #: [id number] CLICK HERE TO VIEW EXAM ECHOCARDIOGRAM REPORT [...] M.D. on 05/24/2022 at 14:45 Normal [facility] BASIC METABOLIC PANELon 03- Calcium mass conc 9.4 mg/dL Normal 8.6-10.[address] [facility] Comment on above: Order Comment: No: D o not add to previous draw Performed By: #### 0 0071 #### [facility] [address] [place] [address], [place] Chloride molar conc 108 mmol/L High 98-107 [facility] Comment on above: Order Comment: No: D o not add to previous draw Performed By: #### 0 0071 #### [facility] [address] [place] [address], [place] CO2 molar conc 22 mmol/L Normal 21-31 [facility] Comment on above: Order Comment: No: D o not add to previous draw Performed By: #### 0 0071 #### [facility] [address] [place] [address], [place] Creatinine mass conc 1.18 mg/dL Normal 0.60-1.20 [facility] Comment on above: Order Comment: No: D o not add to previous draw Performed By: #### 0 0071 #### [facility] [address] [place] [address], [place] GFR/1.73 sq M predicted among blacks MDRD vol rate/area (S/P/Bld) 55 ml/min/1.73sq m Abnormal >60 [facility] Comment on above: Order Comment: No: D o not add to previous draw Performed By: #### 0 0071 #### [facility] [address] [place] [address], [place] GFR/1.73 sq M predicted among non-blacks MDRD vol rate/area (S/P/Bld) 45 ml/min/1.73sq m Abnormal >60 [facility] Comment on above: Order Comment: No: D o not add to previous draw Performed By: #### 0 0071 #### [facility] [address] [place] [address], [facility] Glucose mass conc 166 mg/dL High 70-[address] [facility] Comment on above: Order Comment: No: D o not add to previous draw Performed By: #### 0 0071 #### [facility] [address] [place] [address], [facility] Potassium molar conc 4.1 mmol/L Normal 3.5-5.1 [facility] Comment on above: Order Comment: No: D o not add to previous draw Performed By: #### 0 0071 #### [facility] [address] [place] [address], [facility] Sodium molar conc 140 mmol/L Normal 136-[address] [facility] Comment on above: Order Comment: No: D o not add to previous draw Performed By: #### 0 0071 #### [facility] [address] [place] [address], [facility] Urea nitrogen mass conc 21 mg/dL Normal 7-25 [facility] Comment on above: Order Comment: No: D o not add to previous draw Performed By: #### 0 0071 #### [facility] [address] [place] [id number], [facility] CBC COMPLETE BLOOD COUNTon 0 - Erythrocyte distribution width Ratio (RBC) 12.9 % Normal 11.5-15.0 [facility] Comment on above: Order Comment: No: D o not add to previous draw Performed By: #### 5 [id number] #### [facility] [address] [place] [address], [facility] Hematocrit Volume Fraction (Bld) 36.7 % Normal 36.0-45.0 [facility] Comment on above: Order Comment: No: D o not add to previous draw Performed By: #### 5 [id number] #### [facility] [address] Hemoglobin mass conc (Bld) 12.4 g/dL Normal 12.0-15.0 [facility] Comment on above: Order Comment: No: D o not add to previous draw Performed By: #### 5 [id number] #### [facility] [address] [place] [address], [facility] MCH Entitic mass (RBC) 31.2 pg Normal 27.0-33.0 [facility] Comment on above: Order Comment: No: D o not add to previous draw Performed By: #### 5 [id number] #### [facility] [address] MCHC mass conc (RBC) 33.8 g/dL Normal 32.0-35.0 [facility] Comment on above: Order Comment: No: D o not add to previous draw Performed By: #### 5 [id number] #### [facility] [address] [facility]. [address] MCV Entitic volume (RBC) 92.4 fL Normal 82.0-98.0 [facility] Comment on above: Order Comment: No: D o not add to previous draw Performed By: #### 5 [id number] #### [facility] [address] [facility] [place] [address], [facility] Nucleated RBC/100 WBC Ratio (Bld) 0 % Normal 0-0 [facility] Comment on above: Order Comment: No: D o not add to previous draw Performed By: #### 5 [id number] #### [facility] [address] [facility] [place] [address], [facility] PLAT CNT 227 10*3/uL Normal 150-400 The [facility] Comment on above: Order Comment: No: D o not add to previous draw Performed By: #### 5 [id number] #### [facility] [address] [place] [address], [facility] RBC #/vol (Bld) 3.97 10*6/uL Normal 3.80-5.[address] [facility] Comment on above: Order Comment: No: D o not add to previous draw Performed By: #### 5 [id number] #### [facility] [address] WBC #/vol (Bld) 5.55 10*3/uL Normal 4.00-10.[address] [facility] Comment on above: Order Comment: No: D o not add to previous draw Performed By: #### 5 [id number] #### [facility] [address] [facility]. [address] Cardiovascular Lab Reporton 11-20-2018 Cardiovascular Lab Report [facility] Patient Name: Bubba [facility] MR #: [id number] Department of Physician: Bong Gaspar M.D. Division of Service Date: 11/20/2018 Cardiology Birthdate: 1950 Adult Cardiovascular Room #: [id number] [place] [address] Cardiovascular Laboratory Report INDICATION: The patient is a 68-year-old woman who was evaluated in Cardiology Clinic because of new onset symptoms of shortness of breath on mild exertion. Her stress test showed evidence of [id number]-[id number] area of inferoapical ischemia; because of that, she was referred for cardiac catheterization. PROCEDURES: 1. Right heart catheterization. 2. Bilateral selective coronary angiography. 3. Limited right femoral angiography. METHOD: Procedure was explained patient with risks and benefits. She signed informed consent. She was brought to home performance laborer in a fasting state. The right groin area was prepped and draped in usual fashion. Using micropuncture technique, the right common femoral artery was accessed. The inner cannula was advanced. Limited femoral angiography was performed followed by upsizing to a 6-Cypriot x 11 cm sheath. Access was also obtained using the same technique in the right common femoral vein and a 6-Cypriot x 11 cm sheath was placed. A 6-Cypriot Michel catheter was used for right heart catheterization with measurement of pressures and calculation of cardiac output using the estimated Ivory method. Michel catheter was removed. Bilateral selective coronary angiography was then performed using 6-Cypriot JL4 and JR4 diagnostic catheters. Catheters were [...] Gaspar M.D. Date Trans: 11/20/2018 09:31 Cyndy/alvina [id number] cc: Krzysztof Harp M.D. [address] [facility] [id number] Normal [facility] BASIC METABOLIC PANELon 11-08 Calcium mass conc 9.5 mg/dL Normal 8.6-10.[address] [facility] Comment on above: Order Comment: No: D o not add to previous draw Performed By: #### 0 0071 #### [facility] [address] [place] [address], [place] Chloride molar conc 105 mmol/L Normal 98-107 [facility] Comment on above: Order Comment: No: D o not add to previous draw Performed By: #### 0 0071 #### [facility] [address] [place] [address], [place] CO2 molar conc 24 mmol/L Normal 21-31 The [facility] Comment on above: Order Comment: No: D o not add to previous draw Performed By: #### 0 0071 #### [facility] [address] [place] [address], [place] Creatinine mass conc 1.42 mg/dL High 0.60-1.20 [facility] Comment on above: Order Comment: No: D o not add to previous draw Performed By: #### 0 0071 #### [facility] [address] [place] [address], [place] GFR/1.73 sq M predicted among blacks MDRD vol rate/area (S/P/Bld) 45 ml/min/1.73sq m Abnormal >60 [facility] Comment on above: Order Comment: No: D o not add to previous draw Performed By: #### 0 0071 #### [facility] [address] [place] [address], [place] GFR/1.73 sq M predicted among non-blacks MDRD vol rate/area (S/P/Bld) 36 ml/min/1.73sq m Abnormal >60 [facility] Comment on above: Order Comment: No: D o not add to previous draw Performed By: #### 0 0071 #### [facility] [address] [place] [address], [facility] Glucose mass conc 86 mg/dL Normal 70-[address] [facility] Comment on above: Order Comment: No: D o not add to previous draw Performed By: #### 0 0071 #### [facility] [address] [place] [address], [facility] Potassium molar conc 4.2 mmol/L Normal 3.5-5.1 [facility] Comment on above: Order Comment: No: D o not add to previous draw Performed By: #### 0 0071 #### [facility] [address] [place] [address], [facility] Sodium molar conc 138 mmol/L Normal 136-[address] [facility] Comment on above: Order Comment: No: D o not add to previous draw Performed By: #### 0 0071 #### [facility] [address] [place] [address], [facility] Urea nitrogen mass conc 19 mg/dL Normal 7-25 [facility] Comment on above: Order Comment: No: D o not add to previous draw Performed By: #### 0 0071 #### [facility] [address] [place] [address], [facility] CBC COMPLETE BLOOD COUNTon 0 - Erythrocyte distribution width Ratio (RBC) 13.0 % Normal 11.5-15.0 [facility] Comment on above: Order Comment: No: D o not add to previous draw Performed By: #### 5 [id number] #### [facility] [address] [place] [address], [facility] Hematocrit Volume Fraction (Bld) 38.3 % Normal 36.0-45.0 [facility] Comment on above: Order Comment: No: D o not add to previous draw Performed By: #### 5 [id number] #### [facility] [address] [place] [address], [facility] Hemoglobin mass conc (Bld) 12.6 g/dL Normal 12.0-15.0 [facility] Comment on above: Order Comment: No: D o not add to previous draw Performed By: #### 5 [id number] #### [facility] [address] [facility] [address] MCH Entitic mass (RBC) 31.1 pg Normal 27.0-33.0 [facility] Comment on above: Order Comment: No: D o not add to previous draw Performed By: #### 5 [id number] #### [facility] [address] MCHC mass conc (RBC) 32.9 g/dL Normal 32.0-35.0 [facility] Comment on above: Order Comment: No: D o not add to previous draw Performed By: #### 5 [id number] #### [facility] [address] MCV Entitic volume (RBC) 94.6 fL Normal 82.0-98.0 [facility] Comment on above: Order Comment: No: D o not add to previous draw Performed By: #### 5 [id number] #### [facility] [address] Nucleated RBC/100 WBC Ratio (Bld) 0 % Normal 0-0 [facility] Comment on above: Order Comment: No: D o not add to previous draw Performed By: #### 5 [id number] #### [facility] [address] PLAT CNT 266 10*3/uL Normal 150-400 The [facility] Comment on above: Order Comment: No: D o not add to previous draw Performed By: #### 5 [id number] #### [facility] [address] RBC #/vol (Bld) 4.05 10*6/uL Normal 3.80-5.[address] [facility] Comment on above: Order Comment: No: D o not add to previous draw Performed By: #### 5 [id number] #### [facility] [address] [place] [address], [facility] WBC #/vol (Bld) 9.01 10*3/uL Normal 4.00-10.60 [facility] Comment on above: Order Comment: No: D o not add to previous draw Performed By: #### 5 [id number] #### [facility] [address] [facility]. [address] PROTHROMBIN TIMEon 9 INR Coag RelTime (PPP) 1.07 {INR} Normal 0.91-1.16 [facility] Comment on above: Order Comment: No: [...] 1995;[id number]. Performed By: #### 5 [id number] #### [facility] [address] [facility]. [address] Prothrombin time (PT) Coag time (PPP) 13.9 s Normal 12.3-14.8 The [facility] Comment on above: Order Comment: No: D o not add to previous draw Result Comment: ALL RESULTS MUST BE INTERPRETED WITH RESPECT TO BLOOD DRAWING ARTIFACT OR DILUTION ERROR OF ANTICOAGULANT AT THE TIME OF SAMPLING. Performed By: #### 5 [id number] #### [facility] [address] Vital Signs Date Time Vital Sign Value Performing Clinician Joel mcclellan 03-26-2024 11:35-0400 Diastolic blood pressure 106 mm[Hg] MD Krzysztof Harp Work Phone: [facility] 03-26-2024 11:35-0400 Heart rate 76 /min MD Krzysztof Harp Work Phone: [facility] 03-26-2024 11:35-0400 Respiratory rate 18 /min MD Krzysztof Harp Work Phone: [facility] 03-26-2024 11:35-0400 SaO2% (BldA) [Mass fraction] 96 % MD Krzysztof Harp Work Phone: [facility] 03-26-2024 11:35-0400 Systolic blood pressure 152 mm[Hg] MD Krzysztof Harp Work Phone: [facility] 03-26-2024 10:24-0400 Body height 157.48 cm MD Krzysztof Harp Work Phone: [facility] 03-26-2024 10:24-0400 Body weight 62.14 kg MD Krzysztof Harp Work Phone: [facility] 02-19-2024 09:07-0400 Body height 157.48 cm MD Krzysztof Harp Work Phone: [facility] 02-19-2024 09:07-0400 Body mass index (BMI) [Ratio] 24.7 kg/m2 MD Krzysztof Harp Work Phone: [facility] 02-19-2024 09:07-0400 Body weight 61.23 kg MD Krzysztof Harp Work Phone: [facility] 02-19-2024 09:07-0400 Diastolic blood pressure 105 mm[Hg] MD Krzysztof Harp Work Phone: [facility] 02-19-2024 09:07-0400 Heart rate 60 /min MD Krzysztof Harp Work Phone: [facility] 02-19-2024 09:07-0400 Systolic blood pressure 146 mm[Hg] MD Krzysztof Harp Work Phone: [facility] 02-05-2024 13:37-0400 Diastolic blood pressure 47 mm[Hg] MD Krzysztof Harp Work Phone: [facility] 02-05-2024 13:37-0400 Heart rate 78 /min MD Krzysztof Harp Work Phone: [facility] 02-05-2024 13:37-0400 Respiratory rate 16 /min MD Krzysztof Harp Work Phone: [facility] 02-05-2024 13:37-0400 SaO2% (BldA) [Mass fraction] 97 % MD Krzysztof Harp Work Phone: [facility] 02-05-2024 13:37-0400 Systolic blood pressure 122 mm[Hg] MD Krzysztof Harp Work Phone: [facility] 02-05-2024 11:35-0400 Body height 157.48 cm MD Krzysztof Harp Work Phone: [facility] 02-05-2024 11:35-0400 Body temperature 99.1 [degF] MD Krzysztof Harp Work Phone: [facility] 02-05-2024 11:35-0400 Body weight 62.14 kg MD Krzysztof Harp Work Phone: [facility] Encounters Encounter Date Encounter Type Care Provider Facility Start: 2024 End: 2024 ambulatory CLEVE NOEL Not Available Start: 04-01-2024 End: 04-01-2024 ambulatory CLEVE NOEL Not Available Start: 03-26-2024 Non-patient / Non-visit MD Krzysztof Harp Work Phone: [facility] Gastroenterology Work Phone: Start: 03-26-2024 End: 03-26-2024 Admission to same day surgery center MD Krzysztof Harp Work Phone: [facility] Work Phone: Start: 03-26-2024 End: 03-26-2024 ambulatory MD Krzysztof Harp Work Phone: [facility] Work Phone: Start: 02-19-2024 End: 02-19-2024 ambulatory MD Krzysztof Harp Work Phone: [facility] Work Phone: Start: 02-19-2024 End: 02-19-2024 Patient encounter procedure MD Krzysztof Harp Work Phone: [facility] Work Phone: Start: 02-05-2024 Non-patient / Non-visit MD Krzysztof Harp Work Phone: [facility] Work Phone: Start: 02-05-2024 End: 02-05-2024 Admission to same day surgery center MD Krzysztof Harp Work Phone: [facility] Work Phone: Start: 02-05-2024 End: 02-05-2024 ambulatory MD Krzysztof Harp Work Phone: [facility] Work Phone: Start: 01-16-2024 Non-patient / Non-visit MD Krzysztof Harp Work Phone: [facility] Work Phone: Start: 01-09-2024 End: 01-09-2024 ambulatory DARSHAN HERNANDEZ Not Available Start: 01-07-2024 ambulatory KRZYSZTOF M Alison [facility] Start: 01-16-2023 ambulatory JN GARCIA . Facility : Start: 01-15-2023 End: 01-15-2023 ambulatory APRIL CASTANEDA . Facility:[facility] Start: 01-10-2023 End: 01-11-[address] KRZYSZTOF HARP . Facility:[facility] Start: 12-15-2022 End: 12-15-2022 ambulatory APRIL CASTANEDA . Facility:[facility] Start: 12-15-2022 ambulatory RODRIGUEZ RIVERA [facility] Start: 12-05-2022 End: 12-06-[address] [...] End: 11-20-2018 Patient encounter procedure PROVIDER UNKNOWN Facility:[facility] Start: 11-13-2018 End: 11-14-2018 Patient encounter procedure DEFAULT PHYSICIAN Facility:[facility] Start: 10-31-2018 End: 11-01-2018 Patient encounter procedure DEFAULT PHYSICIAN Facility:[facility] Start: 09-23-2018 End: 09-24-2018 Patient encounter procedure DEFAULT PHYSICIAN Facility:[facility] Start: 09-05-2018 End: 09-06-2018 Patient encounter procedure DEFAULT PHYSICIAN Facility:[facility] Procedures Date Procedure Procedure Detail Performing Clinician Start: 03-26-2024 Screening colonoscopy Akosua Harp Work Phone: Start: 02-05-2024 Esophagogastroduodenoscopy MD Krzysztof Harp Work Phone: Plan of Treatment Date Care Activity Detail Author Start: 03-26-2024 [facility] Start: 02-05-2024 [facility] Patient Education [facility] Work Phone: Payers Date Payer Category Payer Self-pay 2015 Medicare [id number] 1959 Unknown [id number] 1950 Unknown [id number] 2.16.8 40.1.662939.3.579.2.647 1950 Unknown [id number] 2.16.8 40.1.824216.3.579.2.647 1948 Unknown [id number] 2.16.8 40.1.336659.3.579.2.647 1948 Unknown [id number] 2.16.8 40.1.884572.3.579.2.647 1948 Unknown [id number] 2.16.8 40.1.812401.3.579.2.647 1948 Unknown [id number] 2.16.84 0.1.614387.3.579.2.593 1948 Unknown [id number] 2.16.84 0.1.417525.3.579.2.593 1948 Unknown [id number] 2.16.84 0.1.273676.3.579.2.593 1948 Unknown [id number] 2.16.84 0.1.460320.3.579.2.593 1948 Unknown [id number] 2.16.84 0.1.619402.3.579.2.593 1948 Unknown [id number] 2.16.84 0.1.128104.3.579.2.593 1948 Unknown [id number] 2.16.84 0.1.037581.3.579.2.593 1948 Unknown [id number] 2.16.84 0.1.672943.3.579.2.593 1948 Unknown [id number] 2.16.84 0.1.613242.3.579.2.593 1948 Unknown [id number] 2.16.84 0.1.438750.3.579.2.593 1948 Unknown [id number] 2.16.84 0.1.066520.3.579.2.593 1948 Unknown [id number] 2.16.84 0.1.855947.3.579.2.593 1948 Unknown [id number] 2.16.84 0.1.984644.3.579.2.593 1948 Unknown [id number] 2.16.84 0.1.280691.3.579.2.593 1948 Unknown [id number] 2.16.84 0.1.905438.3.579.2.593 1948 Unknown [id number] 2.16.84 0.1.345088.3.579.2.593 1948 Unknown [id number] 2.16.84 0.1.791242.3.579.2.593 1948 Unknown [id number] 2.16.84 0.1.677802.3.579.2.593 1948 Unknown [id number] 2.16.84 0.1.637909.3.579.2.593 1948 Unknown [id number] 2.16.8 40.1.681703.3.579.2.1286 1948 Unknown [id number] 2.16.8 40.1.460544.3.579.2.1286 1948 Unknown [id number] 2.16.8 40.1.631541.3.579.2.1286 1948 Unknown [id number] 2.16.84 0.1.816708.3.579.2.1259 1948 Unknown [id number] 2.16.84 0.1.449103.3.579.2.1259 1948 Unknown [id number] 2.16.84 0.1.737360.3.579.2.1259 Medicare [id number] Unknown Unknown [id number] 2.16.8 40.1.685353.3.579.2.531 Unknown [id number] 2.16.8 40.1.035599.3.579.2.531 Social History Date Type Detail Facility Start: 02-05-2024 End: 03-26-2024 Tobacco smoking status NHIS Never smoked tobacco (finding) [facility] Start: 1950 Sex Assigned At Female F [facility] Goals Date Patient Goal Desired Activity /State Clinical Notes 02-14-2022 to 03-26-2024 Note Date & Type Note Facility 03-26-2024 Procedure note [facility] 02-05-2024 Procedure note [facility] 12-15-2022 Note Cardiology Follow Up Progress Note [...] She will be (more content not included)... [facility] 12-15-2022 Note Review of Systems Cardiovascular: Positive for leg swelling. Respiratory: Positive for shortness of breath. Skin: Positive for color change. Neurological: Positive for headaches. All other systems reviewed and are negative. [facility] 07-25-2022 Note PROCEDURE: MRA NECK WO CON [...] authenticated by: VISHNU MARIE Date: 2022-07-25 13:25 [facility] 05-11-2022 Note PROCEDURE: XR FOOT L T MIN 3 VIEWS HISTORY: Pain in left foot ; acute plantar pain COMPARISON: None. FINDINGS: BONES:No fracture, acute abnormality, or significant arthropathy. SOFT TISSUES:No visible soft tissue swelling. EFFUSION:None visible. OTHER: Negative. IMPRESSION: 1. No acute abnormality, significant degenerative changes, or findings to account for patient's symptoms. Electronically authenticated by: VISHNU MARIE Date: 2022-05-11 12:51 [facility] 02-14-2022 Note PROCEDURE: XR KNEE L T 4V or > COMPARISON: None. HISTORY: Osteoarthritis FINDINGS: BONES:No fracture, acute abnormality, or significant arthropathy. SOFT TISSUES:Negative. No visible soft tissue swelling. EFFUSION:Moderate suprapatellar joint effusion OTHER: Negative. IMPRESSION: Moderate joint effusion Electronically authenticated by: GODWIN BECK Date: 2022-02-14 17:30 [facility] Evaluation note No assessment inform ation available [facility] Work Phone: Evaluation note Diagnosis Onset Date Duodenal diverticulum acute Hiatal hernia acute IBS (irritable bowel syndrome) acute Screening for colon cancer cyndy zaidi [facility] Work Phone: History and physical note Author Ben Sanchez [facility] February 05, 2024 1:08pm Note Date/Time February 05, 2024 1:08p akosua [facility] [place] [address] Gastroenterology H&P Signed Patient: Sheila Mac MR#: [id number] : 1950 Acct:[id number] Age/Sex: 73 / F Adm Date: 4 Loc: Room: Type: [facility] Attending Dr: Ben Sanchez MD Copies to: [...] MD Documented By: Ben Sanchez MD 02/05/24 1302 Signed By: <Electronically signed by Ben Sanchez MD> 02/05/24 1308 [facility] Work Phone: History and physical note Author Ben Sanchez [facility] March 26, 2024 10:37am Note Date/Time March 26, 2024 10:3 7am [facility] [address] [place] [address] Gastroenterology H&P Signed Patient: Sheila Mac MR#: [id number] : 1950 Acct:[id number] Age/Sex: 73 / F Adm Date: 4 Loc: Room: Type: [facility] Attending Dr: Ben Sanchez MD Copies to: [...] <Electronically signed by Ben Sanchez MD> 03/26/[address] [place] [address] Ctr Work Phone: Summary Purpose Family History [...] and content) DATE CREATED AUTHOR 11/24/2018 [facility] DATE CREATED AUTHOR AUTHOR'S ORGANIZ ATION 12/19/2022 [facility] DATE CREATED AUTHOR AUTHOR'S ORGANIZ ATION 01/18/2023 [facility] DATE CREATED AUTHOR AUTHOR'S ORGANIZ ATION 01/10/2024 [facility] DATE CREATED AUTHOR AUTHOR'S ORGANIZ ATION 03/29/2024 [facility] DATE CREATED AUTHOR AUTHOR'S ORGANIZ ATION 04/10/2024 [facility] EPIC Care Teams (unrecognized [...] BE BASED ON THE PRIMARY CLINICAL RECORDS. [employer] provides no warranty or guarantee of the accuracy or completeness of information in this document.
[2024-05-28 09:11] LABS: Bilirubin Urine NEGATIVE (NEGATIVE); Blood Urine LARGE (NEGATIVE); Clarity Urine CLEAR (CLEAR); Color Urine LT. YELLOW (YELLOW); Glucose Urine UA NEGATIVE (NEGATIVE); Ketones Urine NEGATIVE (NEGATIVE); Leukocyte Esterase Urine LARGE (NEGATIVE); Nitrite Urine NEGATIVE (NEGATIVE); Protein Urine NEGATIVE (NEG/TRACE); Specific Gravity Urine 1.015 (1.005-1.025); Urobilinogen Urine 0.2 EU/dL (0.2-1.0)
[2024-05-28 09:25] LABS: Bacteria Urine TRACE #/HPF (NONE SEEN); Cast Seen? NONE SEEN #/LPF (NONE SEEN); Crystals Seen? None Seen #/HPF (None Seen); Mucus Urine NONE SEEN (NONE SEEN); Squamous Epithelial Cell Urine FEW #/LPF (NONE/RARE); Urine Culture Indicated ALREADY ORDERED
== END 2024-05-28 08:33 | disposition home or self-care (01) ==
LOC: LAB 08:34
PROVIDERS: PCP Family Medicine; Visit Provider Family Medicine
DX: N39.0 Urinary tract infection, site not specified (principal)
CPT/HCPCS: 81001; 87086; 87150; 87186

== ENCOUNTER 2024-06-02 09:57 | Outpatient (OUT) | payer MEDICARE, SELFPAY ==
--- NOTE | 2024-06-02 | XR_ITS ---
The [address] [address] Patient Name: EDIN SAMANIEGO MRN: [id number] date: 1950 Sex: F Assigned Patient Location: [facility] Current Patient Location: LAB Accession/Order Number: [id number] Exam Date: 06/02/2024 10:15 Report Date: 06/04/2024 06:50 At the request of: KRZYSZTOF THOMPSON Procedure: XR hip RT 2V w/ pelvis PROCEDURE: XR hip RT 2V w/ pelvis HISTORY: CAUSALGIA OF RIGHT LOWER LIMB G57.71 COMPARISON: XR hip right with pelvis 03/10/2024 FINDINGS: BONES:Slight narrowing of the hip joint spaces bilaterally. No fracture, dislocation, bone lesion. Tiny degenerative osteophytes along the superior rim of the acetabulum bilaterally. SOFT TISSUES:No visible soft tissue swelling. EFFUSION:None visible. OTHER: Degenerative disc disease of lower lumbar spine. XR/XR hip RT 2V w/ pelvis IMPRESSION: 1. No appreciable acute abnormality. 2. Stable minimal degenerative changes of the hip joints. Electronically authenticated by: DANIEL PINEDA Date: 06/04/2024 06:50
== END 2024-06-02 09:58 | disposition home or self-care (01) ==
LOC: RAD 09:59
PROVIDERS: PCP Family Medicine; Visit Provider Family Medicine
DX: G57.71 Causalgia of right lower limb (principal)
CPT/HCPCS: 73502

== ENCOUNTER 2024-06-27 08:59 | Emergency (ER) | payer MEDICARE, SELFPAY ==
[2024-06-27 09:06] VITALS: BP 131/93; PULSE 104; TEMP 36.5; O2SAT 97; BMI 23.3
--- OUTSIDE RECORDS SUMMARY | 2024-06-27 09:07 | XMS_ITS | CCD ---
Author Organization [facility] [place] Care Team Providers Care Shrimp Header Name Role Phone PHYSICIAN, DEFAULT Admitting Unavailable [...] Unavailable HOY ., DR BLANKENSHIP Admmilton Unavailable BOYD, DR GODWIN Cardona Consulting Unavailable HOY ., DR BLANKENSHIP Consulting Unavailable HOY ., DR BLANKENSHIP Attending Unavailable HOY ., DR BLANKENSHIP Primary Care Unavailable HOY ., DR BLANKENSHIP Admimlton Unavailable ZIEBER, DR DANIEL Erazo Consulting Unavailable CHRISTIANO MORALES Consulting Unavailable HOY ., DR BLANKENSHIP Admitting Unavailable HOY ., DR BLANKENSHIP Attending Unavailable HOY ., DR BLANKENSHIP Consulting Unavailable HOY ., DR BLANKENSHIP Primary Care Unavailable ZIEBER, DR DANIEL Erazo Consulting Unavailable HOY ., DR BLANKENSHIP [...] DR BLANKENSHIP Primary Care Unavailable ZIEBER, DR DANIEL Erazo Consulting Unavailable MATILDA ., DR STRATTON Consulting Unavailable GONZALEZ PATEL Consulting Unavailable LEONEL ., APRIL Consulting Unavailable HOY ., DR BLANKENSHIP Attending Unavailable HOY ., DR BLANKENSHIP Consulting Unavailable HOY ., DR BLANKENSHIP Primary Care Unavailable HOY ., DR BLANKENSHIP Admitting Unavailable ZIEBER, DR DANIEL Erazo Consulting Unavailable PAY ., DR JACINTO Consulting Unavailable JUMMA, MOUHAMMABecky Consulting Unavailable BOYD, VANESSA Consulting Unavailblane ELAINE, RAVEN Consulting Unavailable NATALIIA TATE Consulting [...] ., DR BLANKENSHIP Admmilton Unavailable ZIEBER, DR DANIEL Erazo Consulting Unavailable HOY ., DR BLANKENSHIP Admmilton Unavailable HOY ., DR BLANKENSHIP Attending Unavailable HOY ., DR BLANKENSHIP Consulting Unavailable HOY ., DR BLANKENSHIP Primary Care Unavailable ZIEBER, DR DANIEL Erazo Consulting Unavailable HOY ., DR BLANKENSHIP [...] BLANKENSHIP Primary Care Unavailable HOY ., DR KRZYSZTOF Admitting Unavailable EDWIN, DR DANIEL Erazo Consulting Unavailable LEONEL ., APRIL Consulting [...] Referring Unavailable KRZYSZTOF HARP Primary Care Unavailable MD Ben Sanchez Attending Provider [phone] MD Krzysztof Harp Primary Care Provider [phone] Ben Sanchez Admitting Unavailable Ben Sanchez Attending Unavailable Krzysztof Harp Primary Care Unavailable Ben Sanchez Admitting Unavailable Ben Sanchez Attending Unavailable Krzysztof Harp Primary Care Unavailable KRZYSZTOF HARP Primary Care Unavailable FREEMAN WARD Attending Unavailab CLEVE Portillo Referring Unavailable CLEVE SHETH Attending Unavailable CLEVE SHETH Referring Unavailable CLEVE SEHTH Attending Unavailable CLEVE SHETH Attending Unavailable CLEVE SHETH Attending Unavailable DARSHAN HERNANDEZ Attending Unavailable Krzysztof Harp MD Primary Care Provider [phone] Allergies Allergy Classification Reported Allergen(s) Allergy Type Date of Onset Reaction(s) Facility (6 sources) Morphine; 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: [MORPHINE] Drug Allergy 7 Vomiting [facility] (3 sources) NSAIDs; 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: [NSAIDS (NON-STEROIDAL ANTI-INFLAMMATOR Y DRUG)] Drug allergy (disorder) 9 [facility] (1 source) Penicillin Drug Allergy 9 [facility] (1 source) predniSONE Drug Allergy 9 [facility] (2 sources) Iodinated Contrast- Oral and IV Dye Drug allergy (disorder) 5 [facility] (12 sources) Penicillins; 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: [PENICILLINS] Propensity to adverse reactions to drug (disorder) 5 Rash [facility] (9 sources) IODINATED CONTRAST MEDIA; 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: [IODINATED CONTRAST MEDIA] Propensity to adverse reactions to drug (disorder) 3 Anaphylaxis [facility] (1 source) levoFLOXacin Drug Allergy 3 [facility] Repository (1 source) meloxicam Drug Allergy 3 [facility] Repository (2 sources) Contrast media; 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: [DYE] Propensity to adverse reactions to drug (disorder) 7 [facility] Repository (2 sources) MORPHOLINE ANALOGUES; 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: [MORPHOLINE ANALOGUES] Propensity to adverse reactions to drug (disorder) 7 [facility] Repository (4 sources) NSAIDS (Non-Steroidal Anti-Inflamma; 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: [NSAIDS (Non-Steroidal Anti-Inflamma] Propensity to adverse reactions 4 Stomach Ulcer [facility] (1 source) Morphine Drug Allergy 4 [facility] (4 sources) Morphine Drug Allergy 3 [facility] Healthcare Medications Current Medications Medication Drug Class(es) Dates Sig (Normalized) Sig (Original) acetaminophen 500 mg oral tablet (4 sources) take 1 tablet by mouth every six hours as needed acetaminophen (Tylenol) 500 MG tablet Take 500 mg by mouth every 6 (six) hours if needed Active aspirin 81 mg delayed release oral tablet (6 sources) Platelet Aggregation Inhibitor, Nonsteroidal Anti-inflammatory Drug Start: 02-19-2024 take 81 mg by mouth once daily Aspirin Active 81 MG PO Daily February 19, 2024 12:00am atorvastatin 20 mg oral tablet (7 sources) HMG-CoA Reductase Inhibitor Start: 01-28-2024 take 20 mg by mouth once daily at bedtime Atorvastatin Active 20 MG PO Daily at bedtime January 28, 2024 12:00am take 1 tablet by mouth in the mo rning atorvastatin (Lipitor) 40 MG tablet Take 40 mg by mouth in the morning. Active clopidogrel 75 mg oral tablet (7 sources) P2Y12 Platelet Inhibitor Start: 01-28-2024 take [...] 28, 2024 12:00am February 19, 2024 9:15am metoprolol tartrate 25 mg oral tablet (4 sources) beta-Adrenergic Facundo Start: 03-27-2024 metoprolol tartrate (Lopressor) 25 MG tablet 03/27/2024 Active pantoprazole 40 mg delayed release oral tablet (9 sources) Proton Pump Inhibitor Start: 01-28-2024 End: 02-19-2024 Pantoprazole Active 40 MG PO Daily 30 February 19, 2024 9:26am Take 1 tablet orally 30 minutes before morning meal. salmon calcitonin 200 unt/actuat nasal spray (2 sources) Calcitonin Start: 06-17-2024 End: 07-17-2024 calcitonin, salmon, (Miacalcin) 200 UNIT/ACT nasal spray Indications: Closed fracture of multiple pubic rami, right, initial encounter (CMS/FORMER[facility]) Administer 1 spray into one nostril Daily 3.7 mL 06/17/2024 07/17/2024 Active Sod Picosulf-Mag Ox-Citric Ac (2 sources) Start: 02-19-2024 take 1 dose by mouth once daily in the evening Sod Picosulf-Mag Ox-Citric Ac (Clenpiq) 10 mg-3.5 gram- 12 gram/175 mL solution Active 175 ML PO Daily 175 February 19, 2024 12:00am take first dose at 3:00 pm the day before colonoscopy, take second dose at 9:00 pm the day before colonoscopy. sucralfate 1000 mg oral tablet (9 sources) Aluminum Complex Start: 03-18-2024 take 1 tablet by mouth four times daily sucralfate (Carafate) 1 g tablet TAKE 1 TABLET BY MOUTH ON AN EMPTY STOMACH FOUR TIMES DAILY 03/18/2024 Active Start: 02-19-2024 take 1 g by mouth [...] Onset: 09-25-2022 Chronic Congestive heart failure; nonhypertensive (9 sources) Unspecified diastolic (congestive) heart failure; 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: [Acute combined systolic (congestive) and diastolic (congestive) heart failure] Onset: 02-11-2010 Chronic Coronary atherosclerosis and other heart disease (4 sources) Coronary atherosclerosis; 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: [Atherosclerotic heart disease of circle coronary artery without angina pectoris] Onset: 02-11-2010 05-24-2023 Chronic Deficiency and other anemia (1 source) Anemia, unspecified; 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: [ANEMIA UNSPECIFIED] Onset: 01-17-2023 Episodic Deficiency and other anemia (1 source) Iron deficiency anemia, unspecified; 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: [IRON DEFICIENCY ANEMIA UNSPECIFIED] Onset: 10-25-2022 Episodic Diabetes mellitus without complication (5 sources) Type 2 diabetes mellitus without complications; 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: [Diabetes mellitus without complication] Onset: 02-11-2010 05-24-2023 Chronic Diabetes mellitus without complication (2 sources) Prediabetes; 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: [Other abnormal glucose] Onset: 11-14-2022 Episodic Disorders of lipid metabolism (6 sources) Pure hypercholesterolemia , unspecified; 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: [Hyperlipidemia, unspecified] Onset: 03-18-2010 01-09-2024 Chronic Diverticulosis and diverticulitis (8 sources) Diverticulum of duodenum; 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: [Diverticulosis of small intestine without perforation or abscess without bleeding] Onset: 09-12-2018 02-19-2024 Chronic Esophageal disorders (5 sources) Gastro-esophageal reflux disease without esophagitis; 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: [Gastroesophageal reflux disease] Onset: 02-11-2010 05-24-2023 Chronic Essential hypertension (6 sources) Essential (primary) [...] unspecified chronic kidney disease] Onset: 12-15-2022 Chronic Joint disorders and dislocations; trauma-related (4 sources) Derangement of right knee; 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: [Unspecified internal derangement of right knee] Onset: 01-09-2024 01-09-2024 Chronic Malaise and fatigue (1 source) Chronic [...] bilateral carotid arteries] Onset: 05-30-2022 Chronic Osteoarthritis (5 sources) Unspecified osteoarthritis, unspecified site; 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: [Osteoarthritis of left knee joint] Onset: 01-17-2023 01-09-2024 Chronic Osteoporosis (5 sources) Age-related osteoporosis without current pathological fracture; 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: [Osteoporosis] Onset: 07-29-2013 01-09-2024 Chronic Other aftercare (2 sources) intermediate manager (current) use of aspirin; 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: [SNF (CURRENT) USE OF ASPIRIN] Onset: 11-19-2018 Episodic Other aftercare (1 source) Other manager long term care (current) drug therapy; 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: [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] Onset: 01-17-2023 Episodic Other [...] Fibromyalgia; 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: [FIBROMYALGIA] Onset: 01-17-2023 Episodic Other fractures (2 sources) Fracture of multiple pubic rami; 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: [Other specified fracture of right pubis, initial encounter for closed fracture] 06-17-2024 Episodic Other gastrointestinal disorders (2 sources) Irritable [...] Onset: 11-25-2022 Chronic Other nervous system disorders (4 sources) Disorder of autonomic nervous system; 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: [Disorder of the autonomic nervous system, unspecified] Onset: 02-11-2010 05-24-2023 Chronic Other nervous system disorders (1 source) Ataxia, unspecified; 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: [ATAXIA UNSPECIFIED] Onset: 12-15-2022 Episodic Other non-traumatic joint disorders (1 source) Pain in left ankle and joints of left foot; 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: [PAIN IN LEFT ANKLE] Onset: 01-17-2023 Episodic Other non-traumatic joint disorders (1 source) Pain in left hip; 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: [Pain in left hip] Onset: 06-13-2024 Episodic Other non-traumatic joint disorders (3 sources) Hip pain; 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: [Pain in right hip] Onset: 06-13-2024 06-17-2024 Episodic Other screening for suspected conditions (not [...] Onset: 10-19-2022 Episodic Pancreatic disorders (not diabetes) (5 sources) Other chronic pancreatitis; 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: [Chronic pancreatitis] Onset: 05-02-2017 05-24-2023 Chronic Pathological fracture (2 sources) Stress fracture of sacrum; 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: [Pathological fracture, other site, initial encounter for fracture] 06-17-2024 Episodic Residual codes; unclassified (1 source) Acquired absence [...] unspecified; 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: [Pain, unspecified] Onset: 01-07-2024 Episodic Spondylosis; intervertebral disc disorders; other back problems (4 sources) Degeneration of lumbar intervertebral disc; 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: [Degeneration of lumbar intervertebral disc] Onset: 05-27-2010 05-24-2023 Chronic Unclassified (2 sources) ABN STRESS Onset: 11-19-2018 [...] 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: [PERSONAL HISTORY OF COVID-19] Onset: 12-15-2022 Unclassified (1 source) PAIN RT HIP Onset: 06-13-2024 Viral infection (1 source) COVID-19; 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: [COVID-19] Onset: 09-30-2022 Past or Other Problems Problem Classification Problem Date Documented Da te Episodic/Chronic Other bone disease and musculoskeletal deformities (4 sources) Costal chondritis; 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: [Chondrocostal junction syndrome [Tietze]] Onset: 05-24-2023 05-24-2023 Episodic Other gastrointestinal disorders (4 sources) Constipation, unspecified; 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: [CONSTIPATION UNSPECIFIED] Onset: 02-14-2022 Episodic Other nervous system disorders (4 sources) Dysarthria and anarthria; 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: [DYSARTHRIA AND ANARTHRIA] Onset: 05-26-2022 Episodic Results Test Name Value Interpretation Reference Range Facility XR HIP LT 2-3 VIEWS W OR WO PELVISon 06-13-2024 XR HIP LT 2-3 VIEWS W OR WO PELVIS XR HIP LT 2-3 VIEWS W OR WO PELVIS XR HIP LT 2-3 VIEWS W OR WO PELVIS 06/13/2024 9:57 PM INDICATION: Pain, left hip pain COMPARISON: CT abdomen and pelvis were 1823 TECHNIQUE: Frontal pelvis and frontal/lateral hip view(s) obtained. FINDINGS: Osseous: No acute fracture. Joints: No malalignment or dislocation. Bilateral hip and sacroiliac joint degenerative changes. Pubic symphysis and lumbosacral spine degenerative changes. IMPRESSION: No acute bony abnormalities displayed. Approved by Resident: Yeison Burns MD on 06/13/2024 10:17 PM I, Rod Muller MD have personally reviewed the image(s) and agree with and/or edited the report Finalized by Rod Muller MD on 06/13/2024 10:24 PM Normal [facility] XR SPINE LUMBAR 2 OR 3 VWSon 06-13-2024 XR SPINE LUMBAR 2 OR 3 VWS XR SPINE LUMBAR 2 OR 3 VWS CLINICAL INFORMATION: Pain chronic pain TECHNIQUE: Lumbo-sacral spine radiographs performed. Three images acquired. COMPARISON: No relevant prior studies available. FINDINGS: * Decreased disc space L4-L5 L5-S1. No acute fracture deformity. Facet osteoarthritis L5-S1. Levoscoliosis lumbar spine diffuse osteopenia. * IMPRESSION: * Lower lumbar spine osteoarthritis with scoliosis. If further more detailed evaluation is necessary, particularly if the patient continues to remain symptomatic, then one should consider follow-up MRI . Finalized by Rickie Gonzales MD on 06/13/2024 10:20 PM Normal [facility] MR HIP RIGHT WO IV CONTRASTo n 10-03-2024 MR HIP RIGHT WO IV CONTRAST EXAM: MR HIP RIGHT WO IV CONTRAST HISTORY: Right hip pain. Right groin pain. COMPARISON: None available. TECHNIQUE: Multiplanar multisequence MRI of the right hip was performed without contrast. FINDINGS: Right sacral alar insufficiency fracture with associated bone marrow edema. Subacute appearing nondisplaced fractures of the right superior and right inferior pubic rami with associated bone marrow edema and adjacent soft tissue edema. No intrapelvic hematoma. No femoral head avascular necrosis. Degenerative changes are identified of the lower lumbar spine but are incompletely evaluated on this examination. Mild common hamstring tendinosis. Iliopsoas and rectus femoris tendons are intact. Mild gluteus minimus tendinosis. Gluteus medius tendon is intact. No trochanteric bursal effusion. External rotators tendons are intact. Adductor compartment myotendinous structures are intact. The sciatic nerve is within normal limits in course and morphology. No displaced labral tear identified. High-grade partial-thickness cartilage loss of the posterior and posterior superior femoral head and acetabulum with a few small areas of full-thickness cartilage loss and minimal associated bone marrow edema. Small hip joint effusion is likely reactive. Colonic diverticuli are identified. IMPRESSION: Right sacral alar insufficiency fracture with associated bone marrow edema. Subacute appearing nondisplaced fractures of the right superior and right inferior pubic rami with associated bone marrow edema and adjacent soft tissue edema, also likely insufficiency fractures unless the patient has had recent trauma. Moderate osteoarthritis. ELECTRONICALLY SIGNED BY: Lenny Bourne, DO Normal Not Available Comment on above: Order Comment: MRI R T hip w/o. NOMS US AYESHA DOP LEG LTon 01-16-20 23 [...] the left lower extremity. Electronically authenticated by: DANIEL MARIE Date: 2023-01-15 08:25 Normal [facility] XR ANKLE LT MIN 3 Von 2022 [...] GONZALEZ PATEL Date: 2023-01-15 07:28 Normal [facility] VITAMIN B1 (THIAMINE)on Vit. B1, Whole Blood 118.1 nmol/L Normal 66.5-200.0 [facility] Comment on above: Performed By: #### C BC #### [facility] [address] [place] [address] Dr. Ekta Funk BNPon 01-10-2023 Natriuretic peptide B (Bld) [Mass/Vol] 980.0 pg/mL Critically high <=900.0 [facility] Comment on above: Performed By: #### C VDTBH #### [facility] [address] [place] [address] Dr. Ekta Funk CBC AUTO DIFFon 01-10-2023 BASO # 0.1 103/ul Normal 0.0-0.1 [facility] Comment on above: Performed By: #### C MP #### [facility] [address] [place] [address] Dr. Ekta Funk Basophils/100 WBC (Bld) 1.0 % Normal 0.2-2.0 [facility] Comment on above: Performed By: #### C MP #### [facility] [address] [place] [address] Dr. Ekta Funk EO # 0.4 103/ul Normal 0.0-0.7 [facility] Comment on above: Performed By: #### C MP #### [facility] [address] [place] [address] Dr. Ekta Funk Eosinophils/100 WBC (Bld) 3.7 % Normal 0.9-7.0 [facility] Comment on above: Performed By: #### C MP #### [facility] [address] [place] [address] Dr. Ekta Funk Erythrocyte distribution width (RBC) [Ratio] 13.2 % Normal 11.0-15.0 [facility] Comment on above: Performed By: #### C MP #### [facility] [address] [place] [address] Dr. Ekta Funk Hematocrit (Bld) [Volume fraction] 35.1 % Critically low 36.0-48.0 [facility] Comment on above: Performed By: #### C MP #### [facility] [address] [place] [address] Dr. Ekta Funk Hemoglobin (Bld) [Mass/Vol] 11.3 g/dL Critically low 12.0-16.0 [facility] Comment on above: Performed By: #### C MP #### [facility] [address] [place] [address] Dr. Ekta Funk IG # 0.04 10e3/ul Critically high 0.00-0.03 [facility] Comment on above: Performed By: #### C MP #### [facility] [address] [place] [address] Dr. Ekta Funk IG % 0.4 % Normal 0.0-0.5 [facility] Comment on above: Performed By: #### C MP #### [facility] [address] [place] [address] Dr. Ekta Funk LYMPH # 2.0 103/ul Normal 1.2-3.8 [facility] Comment on above: Performed By: #### C MP #### [facility] [address] [place] [address] Dr. Ekta Funk Lymphocytes/100 WBC (Bld) 20.8 % Normal 20.5-60.0 [facility] Comment on above: Performed By: #### C MP #### [facility] [address] [place] [address] Dr. Ekta Funk MANUAL DIFF REQ NO Normal [facility] Comment on above: Performed By: #### C MP #### [facility] [address] [address] [address] Ekta Funk MCH (RBC) [Entitic mass] 32.3 pg Normal 26.7-34.0 [facility] Comment on above: Performed By: #### C MP #### [facility] [address] [address] [address] Ekta Funk MCHC (RBC) [Mass/Vol] 32.2 g/dL Normal 29.9-35.2 [facility] Comment on above: Performed By: #### C MP #### [facility] [address] [address] [address] Ekta Funk MCV (RBC) [Entitic vol] 100.3 fL Critically high 81.0-99.0 [facility] Comment on above: Performed By: #### C MP #### [facility] [address] [place] [address] Dr. Ekta Funk MONO # 0.8 103/ul Normal 0.3-0.8 [facility] Comment on above: Performed By: #### C MP #### [facility] [address] [place] [address] Dr. Ekta Funk Monocytes/100 WBC (Bld) 7.9 % Normal 1.7-12.0 [facility] Comment on above: Performed By: #### C MP #### [facility] [address] [place] [address] Dr. Ekta Funk NEUT # 6.4 103/ul Normal 1.4-6.5 [facility] Comment on above: Performed By: #### C MP #### [facility] [address] [place] [address] Dr. Ekta Funk Neutrophils/100 WBC (Bld) 66.2 % Normal 43.0-75.0 [facility] Comment on above: Performed By: #### C MP #### [facility] [address] [place] [address] Dr. Ekta Funk Platelet mean volume (Bld) [Entitic vol] 9.6 fL Normal 9.5-13.5 [facility] Comment on above: Performed By: #### C MP #### [facility] [address] [address] [address] Ekta Funk PLT 255 103/ul Normal 150-450 [facility] Comment on above: Performed By: #### C MP #### [facility] [address] [address] [address] Ekta Funk RBC 3.50 106/ul Critically low 4.20-5.40 [facility] Comment on above: Performed By: #### C MP #### [facility] [address] [address] [address] Ekta Funk WBC 9.7 103/ul Normal 4.0-11.0 [facility] Comment on above: Performed By: #### C MP #### [facility] [address] [place] [address] Dr. Ekta Funk CRPon 01-10-2023 CRP [Mass/Vol] mg/L Normal <=1.0 [facility] Comment on above: Performed By: #### C BC #### [facility] [address] [place] [address] Dr. Ekta Funk FREE THYROXINE INDEX T7on FTI 2.62 Normal 1.30-4.50 [facility] Comment on above: Performed By: #### C BC #### [facility] [address] [place] [address] Dr. Ekta Funk T3U 32.0 % Normal 30.0-39.0 [facility] Comment on above: Performed By: #### C BC #### [facility] [address] [address] [address] Ekta Funk T4 [Mass/Vol] 8.20 ug/dL Normal 4.80-13.90 [facility] Comment on above: Performed By: #### C BC #### [facility] [address] [place] [address] Dr. Ekta Funk IRONon 01-10-2023 Iron [Mass/Vol] 61.0 ug/dL Normal 50.0-170.0 [facility] Comment on above: Performed By: #### B 12FOL, VITAD, IRON #### [facility] [address] [address] [address] Ekta Funk PROF 14(COMP METB)on 023 Albumin [Mass/Vol] 2.9 g/dL Critically low 3.4-5.0 [facility] e [facility] Comment on above: Performed By: #### C VDTBH #### [facility] [address] [address] [address] Ekta Funk Albumin/Globulin [Mass ratio] 0.6 {ratio} Normal [facility] Comment on above: Performed By: #### C VDTBH #### [facility] [address] [place] [address] Dr. Ekta Funk ALP [Catalytic activity/Vol] 101 U/L Normal 46-116 [facility] Comment on above: Performed By: #### C VDTBH #### [facility] [facility] [address] [place] [address] Dr. Ekta Funk ALT [Catalytic activity/Vol] 16 U/L Normal 14-59 [facility] Comment on above: Performed By: #### C VDTBH #### [facility] [address] [place] [address] Dr. Ekta Funk Anion gap [Moles/Vol] 14.6 mmol/L Normal [facility] Comment on above: Performed By: #### C VDTBH #### [facility] [address] [place] [address] Dr. Ekta Funk AST [Catalytic activity/Vol] 15 U/L Normal 15-37 [facility] Comment on above: Performed By: #### C VDTBH #### [facility] [address] [address] [address] Ekta Funk Bilirubin [Mass/Vol] 0.4 mg/dL Normal 0.2-1.0 [facility] Comment on above: Performed By: #### C VDTBH #### [facility] [address] [place] [address] Dr. Ekta Funk Calcium [Mass/Vol] 9.2 mg/dL Normal 8.5-10.1 [facility] Comment on above: Performed By: #### C VDTBH #### [facility] [address] [place] [address] Dr. Ekta Funk Chloride [Moles/Vol] 107 mmol/L Normal 98-107 [facility] Comment on above: Performed By: #### C VDTBH #### [facility] [address] [place] [address] Dr. Ekta Funk CO2 [Moles/Vol] 24.4 mmol/L Normal 21.0-32.0 [facility] Comment on above: Performed By: #### C VDTBH #### [facility] [address] [place] [address] Dr. Ekta Funk Creatinine [Mass/Vol] 2.02 mg/dL Critically high 0.55-1.02 [facility] Comment on above: Performed By: #### C VDTBH #### [facility] [address] [place] [address] Dr. Ekta Funk EGFR-AF CHINESE 29 mL/min/1.73m2 Critically low >=60 [facility] Comment on above: Performed By: #### C VDTBH #### [facility] [address] [place] [address] Dr. Ekta Funk EGFR-NON AF CHINESE 24 mL/min/1.73m2 Critically low >=60 [facility] Comment on above: Performed By: #### C VDTBH #### [facility] [address] [place] [address] Dr. Ekta Funk Globulin (S) [Mass/Vol] 4.5 g/dL Normal [facility] Comment on above: Performed By: #### C VDTBH #### [facility] [address] [place] [address] Dr. Ekta Funk Glucose [Mass/Vol] 103 mg/dL Normal 74-106 [facility] Comment on above: Performed By: #### C VDTBH #### [facility] [address] [place] [address] Dr. Ekta Funk Potassium [Moles/Vol] 5.0 mmol/L Normal 3.5-5.1 [facility] Comment on above: Performed By: #### C VDTBH #### [facility] [address] [place] [address] Dr. Ekta Funk Protein [Mass/Vol] 7.4 g/dL Normal 6.4-8.2 [facility] Comment on above: Performed By: #### C VDTBH #### [facility] [address] [place] [address] Dr. Ekta Funk Sodium [Moles/Vol] 141 mmol/L Normal 136-145 [facility] Comment on above: Performed By: #### C VDTBH #### [facility] [address] [place] [address] Dr. Ekta Funk Urea nitrogen [Mass/Vol] 23.0 mg/dL Critically high 7.0-18.0 [facility] Comment on above: Performed By: #### C VDTBH #### [facility] [address] [place] [address] Dr. Ekta Funk Urea nitrogen/Creatinine [Mass ratio] 11.4 mg/mg Normal [facility] Comment on above: Performed By: #### C VDTBH #### [facility] [address] [place] [address] Dr. Ekta Funk TSHon 01-10-2023 TSH 1.793 uIU/mL Normal 0.358-3.740 [facility] Comment on above: Performed By: #### C VDTBH #### [facility] [address] [place] [address] Dr. Ekta Funk VIT B12 AND FOLATEon 023 Cobalamin (Vitamin B12) [Mass/Vol] 175.0 pg/mL Critically low 193.0-986.0 [facility] Comment on above: Performed By: #### B 12FOL, VITAD, IRON #### [facility] [address] [place] [address] Dr. Ekta Funk FOLATE 10.30 ng/mL Normal 8.60-58.90 [facility] Comment on above: Performed By: #### B 12FOL, VITAD, IRON #### [facility] [address] [address] [address] Ekta Funk VITAMIN D 25 OHon 01-10-2023 VIT D 25-OH 24.0 ng/mL Normal [facility] Comment on above: Performed By: #### B 12FOL, VITAD, IRON #### [facility] [address] [address] [address] Ekta Funk VIT D RANGES SEE BELOW Normal [facility] Comment on above: Result Comment: <20 ng/mL Vit D deficient 20 - <30 ng/mL Vit D insufficient 30 - 100 ng/mL Vit D sufficient >100 ng/mL Potential Toxicity Performed By: #### B 12FOL, VITAD, IRON #### [facility] [address] [address] [address] Ekta Funk Office Visiton 12-15-2022 Follow-up visit [id number] Sheila Mac 1950 F Date Provider Department Center 12/15/2022 [id number] RIVERA [facility] No family history on file Level of Service:92855 DE OFFICE/OUTPATIENT ESTABLISHED MOD MDM 30-39 MIN Reason for Visit and Comments: Follow-up [316776] - Is here f/u stress test pt states she had Bruises all over both legs symptoms stated a week ago also stated legs are swollen and burning Normal [facility] NM STRESS/REST MULTIon 12-05 NM STRESS/REST MULTI Patient: SHEILA MAC Exam Date: 12/05/2022 : 1950 Gender:F Ordering : DR KRZYSZTOF HARP . Admission #: [id number] Family : Order #: [id number] CLICK HERE TO VIEW EXAM RADIOLOGY REPORT [...] nuclear medicine myocardial perfusion scan. Dictated by: Daniel Marie M.D. on 12/06/2022 at 07:25 Approved by: Daniel Marie M.D. on 12/06/2022 at 07:26 Normal [facility] ECHOCARDIO M/2D COMPLETEon 0 11-27-2022 ECHOCARDIO M/2D COMPLETE Patient: SHEILA MAC Exam Date: 11/27/2022 : 1950 Gender:F Ordering : DR KRZYSZTOF HARP . Admission #: [id number] Family : Order #: [id number] CLICK HERE TO VIEW EXAM ECHOCARDIOGRAM REPORT [...] 53.33 ml, 53.33 ml Dictated by: Bong Gaspra M.D. on 11/27/2022 at 14:35 Approved by: Bong Gaspar M.D. on 11/27/2022 at 14:39 Normal [facility] CBC AUTO DIFFon 11-26-2022 BASO # 0.0 103/ul Normal 0.0-0.1 [facility] Comment on above: Performed By: #### I NSULIN #### [facility] [address] [place] [address] Dr. Ekta Funk Basophils/100 WBC (Bld) 0.6 % Normal 0.2-2.0 [facility] Comment on above: Performed By: #### I NSULIN #### [facility] [address] [address] [address] Ekta Funk EO # 0.3 103/ul Normal 0.0-0.7 [facility] Comment on above: Performed By: #### I NSULIN #### [facility] [address] [address] [address] Ekta Funk Eosinophils/100 WBC (Bld) 4.8 % Normal 0.9-7.0 [facility] Comment on above: Performed By: #### I NSULIN #### [facility] [address] [place] [address] Dr. Ekta Funk Erythrocyte distribution width (RBC) [Ratio] 13.3 % Normal 11.0-15.0 [facility] Comment on above: Performed By: #### I NSULIN #### [facility] [address] [place] [address] Dr. Ekta Funk Hematocrit (Bld) [Volume fraction] 29.1 % Critically low 36.0-48.0 [facility] Comment on above: Performed By: #### I NSULIN #### [facility] [address] [place] [address] Dr. Ekta Funk Hemoglobin (Bld) [Mass/Vol] 9.5 g/dL Critically low 12.0-16.0 [facility] Comment on above: Performed By: #### I NSULIN #### [facility] [address] [place] [address] Dr. Ekta Funk IG # 0.07 10e3/ul Critically high 0.00-0.03 [facility] Comment on above: Performed By: #### I NSULIN #### [facility] [address] [place] [address] Dr. Ekta Funk IG % 1.0 % Critically high 0.0-0.5 [facility] Comment on above: Performed By: #### I NSULIN #### [facility] [address] [place] [address] Dr. Ekta Funk LYMPH # 1.2 103/ul Normal 1.2-3.8 [facility] Comment on above: Performed By: #### I NSULIN #### [facility] [address] [place] [address] Dr. Ekta Funk Lymphocytes/100 WBC (Bld) 17.2 % Critically low 20.5-60.0 [facility] Comment on above: Performed By: #### I NSULIN #### [facility] [address] [place] [address] Dr. Ekta Funk MANUAL DIFF REQ NO Normal [facility] Comment on above: Performed By: #### I NSULIN #### [facility] [address] [place] [address] Dr. Ekta Funk MCH (RBC) [Entitic mass] 31.7 pg Normal 26.7-34.0 [facility] Comment on above: Performed By: #### I NSULIN #### [facility] [address] [place] [address] Dr. Ekta Funk MCHC (RBC) [Mass/Vol] 32.6 g/dL Normal 29.9-35.2 [facility] Comment on above: Performed By: #### I NSULIN #### [facility] [address] [place] [address] Dr. Ekta Funk MCV (RBC) [Entitic vol] 97.0 fL Normal 81.0-99.0 [facility] Comment on above: Performed By: #### I NSULIN #### [facility] [address] [place] [address] Dr. Ekta Fnuk MONO # 0.8 103/ul Normal 0.3-0.8 [facility] Comment on above: Performed By: #### I NSULIN #### [facility] [address] [place] [address] Dr. Ekta Funk Monocytes/100 WBC (Bld) 11.1 % Normal 1.7-12.0 [facility] Comment on above: Performed By: #### I NSULIN #### [facility] [address] [place] [address] Dr. Ekta Funk NEUT # 4.5 103/ul Normal 1.4-6.5 [facility] Comment on above: Performed By: #### I NSULIN #### [facility] [address] [place] [address] Dr. Ekta Funk Neutrophils/100 WBC (Bld) 65.3 % Normal 43.0-75.0 [facility] Comment on above: Performed By: #### I NSULIN #### [facility] [address] [place] [address] Dr. Ekta Funk Platelet mean volume (Bld) [Entitic vol] 9.4 fL Critically low 9.5-13.5 [facility] Comment on above: Performed By: #### I NSULIN #### [facility] [address] [place] [address] Dr. Ekta Funk PLT 263 103/ul Normal 150-450 [facility] Comment on above: Performed By: #### I NSULIN #### [facility] [address] [place] [address] Dr. Ekta Funk RBC 3.00 106/ul Critically low 4.20-5.40 [facility] Comment on above: Performed By: #### I NSULIN #### [facility] [address] [address] [address] Ekta Funk WBC 6.9 103/ul Normal 4.0-11.0 [facility] Comment on above: Performed By: #### I NSULIN #### [facility] [address] [address] [address] Ekta Funk PROF 14(COMP METB)on 023 Albumin [Mass/Vol] 2.2 g/dL Critically low 3.4-5.0 [facility] Comment on above: Performed By: #### C MP #### [facility] [address] [place] [address] Dr. Ekta Funk Albumin/Globulin [Mass ratio] 0.6 {ratio} Normal [facility] Comment on above: Performed By: #### C MP #### [facility] [address] [place] [address] Dr. Ekta Funk ALP [Catalytic activity/Vol] 82 U/L Normal 46-116 [facility] Comment on above: Performed By: #### C MP #### [facility] [address] [place] [address] Dr. Ekta Funk ALT [Catalytic activity/Vol] 13 U/L Critically low 14-59 [facility] Comment on above: Performed By: #### C MP #### [facility] [address] [place] [address] Dr. Ekta Funk Anion gap [Moles/Vol] 14.0 mmol/L Normal [facility] Comment on above: Performed By: #### C MP #### [facility] [address] [address] [address] Ekta Funk AST [Catalytic activity/Vol] 18 U/L Normal 15-37 [facility] Comment on above: Performed By: #### C MP #### [facility] [address] [place] [address] Dr. Ekta Funk Bilirubin [Mass/Vol] 0.4 mg/dL Normal 0.2-1.0 [facility] Comment on above: Performed By: #### C MP #### [facility] [address] [address] [address] Ekta Funk Calcium [Mass/Vol] 8.6 mg/dL Normal 8.5-10.1 [facility] Comment on above: Performed By: #### C MP #### [facility] [address] [address] [address] Ekta Funk Chloride [Moles/Vol] 108 mmol/L Critically high 98-107 [facility] Comment on above: Performed By: #### C MP #### [facility] [address] [address] [address] Ekta Funk CO2 [Moles/Vol] 19.6 mmol/L Critically low 21.0-32.0 [facility] Comment on above: Performed By: #### C MP #### [facility] [address] [address] [address] Ekta Funk Creatinine [Mass/Vol] 1.70 mg/dL Critically high 0.55-1.02 [facility] Comment on above: Performed By: #### C MP #### [facility] [address] [address] [address] Ekta Funk EGFR-AF CHINESE 36 mL/min/1.73m2 Critically low >=60 [facility] Comment on above: Performed By: #### C MP #### [facility] [address] [address] [address] Ekta Funk EGFR-NON AF CHINESE 29 mL/min/1.73m2 Critically low >=60 [facility] Comment on above: Performed By: #### C MP #### [facility] [address] [address] [address] Ekta Funk Globulin (S) [Mass/Vol] 3.6 g/dL Normal [facility] Comment on above: Performed By: #### C MP #### [facility] [address] [address] [address] Ekta Funk Glucose [Mass/Vol] 103 mg/dL Normal 74-106 [facility] Comment on above: Performed By: #### C MP #### [facility] [address] [address] [address] Ekta Funk Potassium [Moles/Vol] 4.6 mmol/L Normal 3.5-5.1 [facility] Comment on above: Performed By: #### C MP #### [facility] [address] [address] [address] Ekta Funk Protein [Mass/Vol] 5.8 g/dL Critically low 6.4-8.2 [facility] Comment on above: Performed By: #### C MP #### [facility] [address] [place] [address] Dr. Ekta Funk Sodium [Moles/Vol] 137 mmol/L Normal 136-145 [facility] Comment on above: Performed By: #### C MP #### [facility] [address] [place] [address] Dr. Ekta Funk Urea nitrogen [Mass/Vol] 26.0 mg/dL Critically high 7.0-18.0 [facility] Comment on above: Performed By: #### C MP #### [facility] [address] [place] [address] Dr. Ekta Funk Urea nitrogen/Creatinine [Mass ratio] 15.3 mg/mg Normal [facility] Comment on above: Performed By: #### C MP #### [facility] [address] [place] [address] Dr. Ekta Funk CBC AUTO DIFFon 11-25-2022 BASO # 0.1 103/ul Normal 0.0-0.1 [facility] Comment on above: Performed By: #### C BC #### [facility] [address] [place] [address] Dr. Ekta Funk Basophils/100 WBC (Bld) 0.7 % Normal 0.2-2.0 [facility] Comment on above: Performed By: #### C BC #### [facility] [address] [place] [address] Dr. Ekta Funk EO # 0.3 103/ul Normal 0.0-0.7 [facility] Comment on above: Performed By: #### C BC #### [facility] [address] [address] [address] Ekta Funk Eosinophils/100 WBC (Bld) 3.4 % Normal 0.9-7.0 [facility] Comment on above: Performed By: #### C BC #### [facility] [address] [address] [address] Ekta Funk Erythrocyte distribution width (RBC) [Ratio] 13.6 % Normal 11.0-15.0 [facility] Comment on above: Performed By: #### C BC #### [facility] [address] [address] [address] Ekta Funk Hematocrit (Bld) [Volume fraction] 32.1 % Critically low 36.0-48.0 [facility] Comment on above: Performed By: #### C BC #### [facility] [address] [place] [address] Dr. Ekta Funk Hemoglobin (Bld) [Mass/Vol] 10.3 g/dL Critically low 12.0-16.0 [facility] Comment on above: Performed By: #### C BC #### [facility] [address] [place] [address] Dr. Ekta Funk IG # 0.08 10e3/ul Critically high 0.00-0.03 [facility] Comment on above: Performed By: #### C BC #### [facility] [address] [place] [address] Dr. Ekta Funk IG % 0.9 % Critically high 0.0-0.5 [facility] Comment on above: Performed By: #### C BC #### [facility] [address] [address] [address] Ekta Funk LYMPH # 0.9 103/ul Critically low 1.2-3.8 [facility] Comment on above: Performed By: #### C BC #### [facility] [address] [place] [address] Dr. Ekta Funk Lymphocytes/100 WBC (Bld) 10.7 % Critically low 20.5-60.0 [facility] Comment on above: Performed By: #### C BC #### [facility] [address] [place] [address] Dr. Ekta Funk MANUAL DIFF REQ NO Normal [facility] Comment on above: Performed By: #### C BC #### [facility] [address] [place] [address] Dr. Ekta Funk MCH (RBC) [Entitic mass] 32.2 pg Normal 26.7-34.0 [facility] Comment on above: Performed By: #### C BC #### [facility] [address] [place] [address] Dr. Ekta Funk MCHC (RBC) [Mass/Vol] 32.1 g/dL Normal 29.9-35.2 [facility] Comment on above: Performed By: #### C BC #### [facility] [address] [place] [address] Dr. Ekta Funk MCV (RBC) [Entitic vol] 100.3 fL Critically high 81.0-99.0 [facility] Comment on above: Performed By: #### C BC #### [facility] [address] [place] [address] Dr. Ekta Funk MONO # 0.9 103/ul Critically high 0.3-0.8 [facility] Comment on above: Performed By: #### C BC #### [facility] [address] [place] [address] Dr. Ekta Funk Monocytes/100 WBC (Bld) 9.9 % Normal 1.7-12.0 [facility] Comment on above: Performed By: #### C BC #### [facility] [address] [place] [address] Dr. Ekta Funk NEUT # 6.4 103/ul Normal 1.4-6.5 [facility] Comment on above: Performed By: #### C BC #### [facility] [address] [place] [address] Dr. Ekta Funk Neutrophils/100 WBC (Bld) 74.4 % Normal 43.0-75.0 [facility] Comment on above: Performed By: #### C BC #### [facility] [address] [place] [address] Dr. Ekta Funk Platelet mean volume (Bld) [Entitic vol] 9.5 fL Normal 9.5-13.5 [facility] Comment on above: Performed By: #### C BC #### [facility] [address] [place] [address] Dr. Ekta Funk PLT 267 103/ul Normal 150-450 [facility] Comment on above: Performed By: #### C BC #### [facility] [address] [place] [address] Dr. Ekta Funk RBC 3.20 106/ul Critically low 4.20-5.40 [facility] Comment on above: Performed By: #### C BC #### [facility] [address] [place] [address] Dr. Ekta Funk WBC 8.6 103/ul Normal 4.0-11.0 [facility] Comment on above: Performed By: #### C BC #### [facility] [address] [place] [address] Dr. Ekta Funk BASO # 0.1 103/ul Normal 0.0-0.1 [facility] Comment on above: Performed By: #### C MP #### [facility] [address] [place] [address] Dr. Ekta Funk Basophils/100 WBC (Bld) 0.7 % Normal 0.2-2.0 [facility] Comment on above: Performed By: #### C MP #### [facility] [address] [place] [address] Dr. Ekta Funk EO # 0.3 103/ul Normal 0.0-0.7 [facility] Comment on above: Performed By: #### C MP #### [facility] [address] [place] [address] Dr. Ekta Funk Eosinophils/100 WBC (Bld) 3.9 % Normal 0.9-7.0 [facility] Comment on above: Performed By: #### C MP #### [facility] [facility] [address] [place] [address] Dr. Ekta Funk Erythrocyte distribution width (RBC) [Ratio] 13.2 % Normal 11.0-15.0 [facility] Comment on above: Performed By: #### C MP #### [facility] [address] [place] [address] Dr. Ekta Funk Hematocrit (Bld) [Volume fraction] 28.0 % Critically low 36.0-48.0 [facility] Comment on above: Performed By: #### C MP #### [facility] [address] [place] [address] Dr. Ekta Funk Hemoglobin (Bld) [Mass/Vol] 9.3 g/dL Critically low 12.0-16.0 [facility] Comment on above: Performed By: #### C MP #### [facility] [address] [place] [address] Dr. Ekta Funk IG # 0.08 10e3/ul Critically high 0.00-0.03 [facility] Comment on above: Performed By: #### C MP #### [facility] [address] [place] [address] Dr. Ekta Funk IG % 1.1 % Critically high 0.0-0.5 [facility] Comment on above: Performed By: #### C MP #### [facility] [address] [place] [address] Dr. Ekta Funk LYMPH # 0.9 103/ul Critically low 1.2-3.8 [facility] Comment on above: Performed By: #### C MP #### [facility] [address] [place] [address] Dr. Ekta Funk Lymphocytes/100 WBC (Bld) 12.1 % Critically low 20.5-60.0 [facility] Comment on above: Performed By: #### C MP #### [facility] [address] [place] [address] Dr. Ekta Funk MANUAL DIFF REQ NO Normal [facility] Comment on above: Performed By: #### C MP #### [facility] [address] [place] [address] Dr. Ekta Funk MCH (RBC) [Entitic mass] 32.0 pg Normal 26.7-34.0 [facility] Comment on above: Performed By: #### C MP #### [facility] [address] [place] [address] Dr. Ekta Funk MCHC (RBC) [Mass/Vol] 33.2 g/dL Normal 29.9-35.2 [facility] Comment on above: Performed By: #### C MP #### [facility] [address] [place] [address] Dr. Ekta Funk MCV (RBC) [Entitic vol] 96.2 fL Normal 81.0-99.0 [facility] Comment on above: Performed By: #### C MP #### [facility] [address] [place] [address] Dr. Ekta Funk MONO # 0.7 103/ul Normal 0.3-0.8 [facility] Comment on above: Performed By: #### C MP #### [facility] [address] [place] [address] Dr. Ekta Funk Monocytes/100 WBC (Bld) 9.8 % Normal 1.7-12.0 [facility] Comment on above: Performed By: #### C MP #### [facility] [address] [place] [address] Dr. Ekta Funk NEUT # 5.2 103/ul Normal 1.4-6.5 [facility] Comment on above: Performed By: #### C MP #### [facility] [address] [place] [address] Dr. Ekta Funk Neutrophils/100 WBC (Bld) 72.4 % Normal 43.0-75.0 [facility] Comment on above: Performed By: #### C MP #### [facility] [address] [place] [address] Dr. Ekta Funk Platelet mean volume (Bld) [Entitic vol] 9.4 fL Critically low 9.5-13.5 [facility] Comment on above: Performed By: #### C MP #### [facility] [address] [address] [address] Ekta Funk PLT 250 103/ul Normal 150-450 [facility] Comment on above: Performed By: #### C MP #### [facility] [address] [place] [address] Dr. Ekat Funk RBC 2.91 106/ul Critically low 4.20-5.40 [facility] Comment on above: Performed By: #### C MP #### [facility] [address] [place] [address] Dr. Ekta Funk WBC 7.2 103/ul Normal 4.0-11.0 [facility] Comment on above: Performed By: #### C MP #### [facility] [address] [place] [address] Dr. Ekta Funk PROF 14(COMP METB)on 023 Albumin [Mass/Vol] 2.1 g/dL Critically low 3.4-5.0 [facility] Comment on above: Performed By: #### C MP #### [facility] [address] [place] [address] Dr. Ekta Funk Albumin/Globulin [Mass ratio] 0.6 {ratio} Normal [facility] Comment on above: Performed By: #### C MP #### [facility] [address] [place] [address] Dr. Ekta Funk ALP [Catalytic activity/Vol] 68 U/L Normal 46-116 [facility] Comment on above: Performed By: #### C MP #### [facility] [address] [place] [address] Dr. Ekta Funk ALT [Catalytic activity/Vol] 14 U/L Normal 14-59 [facility] Comment on above: Performed By: #### C MP #### [facility] [address] [place] [address] Dr. Ekta Funk Anion gap [Moles/Vol] 12.9 mmol/L Normal [facility] Comment on above: Performed By: #### C MP #### [facility] [address] [place] [address] Dr. Ekta Funk AST [Catalytic activity/Vol] 14 U/L Critically low 15-37 [facility] Comment on above: Performed By: #### C MP #### [facility] [address] [address] [address] Ekta Funk Bilirubin [Mass/Vol] 0.3 mg/dL Normal 0.2-1.0 [facility] Comment on above: Performed By: #### C MP #### [facility] [address] [address] [address] Ekta Funk Calcium [Mass/Vol] 8.3 mg/dL Critically low 8.5-10.1 Th e [facility] Comment on above: Performed By: #### C MP #### [facility] [address] [place] [address] Dr. Ekta Funk Chloride [Moles/Vol] 109 mmol/L Critically high 98-107 [facility] Comment on above: Performed By: #### C MP #### [facility] [address] [address] [address] Ekta Funk CO2 [Moles/Vol] 19.3 mmol/L Critically low 21.0-32.0 [facility] Comment on above: Performed By: #### C MP #### [facility] [address] [place] [address] Dr. Ekta Funk Creatinine [Mass/Vol] 1.54 mg/dL Critically high 0.55-1.02 [facility] Comment on above: Performed By: #### C MP #### [facility] [address] [place] [address] Dr. Ekta Funk EGFR-AF CHINESE 40 mL/min/1.73m2 Critically low >=60 [facility] Comment on above: Performed By: #### C MP #### [facility] [address] [place] [address] Dr. Ekta Funk EGFR-NON AF CHINESE 33 mL/min/1.73m2 Critically low >=60 [facility] Comment on above: Performed By: #### C MP #### [facility] [address] [place] [address] Dr. Ekta Funk Globulin (S) [Mass/Vol] 3.7 g/dL Normal [facility] Comment on above: Performed By: #### C MP #### [facility] [address] [address] [address] Ekta Funk Glucose [Mass/Vol] 117 mg/dL Critically high 74-106 [facility] Comment on above: Performed By: #### C MP #### [facility] [address] [address] [address] Ekta Funk Potassium [Moles/Vol] 4.2 mmol/L Normal 3.5-5.1 [facility] Comment on above: Performed By: #### C MP #### [facility] [address] [address] [address] Ekta Funk Protein [Mass/Vol] 5.8 g/dL Critically low 6.4-8.2 [facility] Comment on above: Performed By: #### C MP #### [facility] [address] [address] [address] Ekta Funk Sodium [Moles/Vol] 137 mmol/L Normal 136-145 [facility] Comment on above: Performed By: #### C MP #### [facility] [address] [place] [address] Dr. Ekta Funk Urea nitrogen [Mass/Vol] 27.0 mg/dL Critically high 7.0-18.0 [facility] Comment on above: Performed By: #### C MP #### [facility] [address] [place] [address] Dr. Ekta Funk Urea nitrogen/Creatinine [Mass ratio] 17.5 mg/mg Normal [facility] Comment on above: Performed By: #### C MP #### [facility] [address] [address] [address] Ekta Funk AMMONIAon 11-24-2022 Ammonia (P) [Moles/Vol] 13 umol/L Normal 11-32 [facility] Comment on above: Performed By: #### C VDTB #### [facility] [address] [place] [address] Dr. Ekta Funk CBC AUTO DIFFon 11-24-2022 BASO # 0.0 103/ul Normal 0.0-0.1 [facility] Comment on above: Performed By: #### C MP #### [facility] [address] [place] [address] Dr. Ekta Funk Basophils/100 WBC (Bld) 0.4 % Normal 0.2-2.0 [facility] Comment on above: Performed By: #### C MP #### [facility] [address] [address] [address] Ekta Funk EO # 0.4 103/ul Normal 0.0-0.7 [facility] Comment on above: Performed By: #### C MP #### [facility] [address] [place] [address] Dr. Ekta Funk Eosinophils/100 WBC (Bld) 3.8 % Normal 0.9-7.0 [facility] Comment on above: Performed By: #### C MP #### [facility] [address] [place] [address] Dr. Ekta Funk Erythrocyte distribution width (RBC) [Ratio] 13.2 % Normal 11.0-15.0 [facility] Comment on above: Performed By: #### C MP #### [facility] [address] [place] [address] Dr. Ekta Funk Hematocrit (Bld) [Volume fraction] 34.0 % Critically low 36.0-48.0 [facility] Comment on above: Performed By: #### C MP #### [facility] [address] [place] [address] Dr. Ekta Funk Hemoglobin (Bld) [Mass/Vol] 11.5 g/dL Critically low 12.0-16.0 [facility] Comment on above: Performed By: #### C MP #### [facility] [address] [place] [address] Dr. Ekta Funk IG # 0.11 10e3/ul Critically high 0.00-0.03 [facility] Comment on above: Performed By: #### C MP #### [facility] [address] [place] [address] Dr. Ekta Funk IG % 1.2 % Critically high 0.0-0.5 [facility] Comment on above: Performed By: #### C MP #### [facility] [address] [place] [address] Dr. Ekta Funk LYMPH # 1.4 103/ul Normal 1.2-3.8 [facility] Comment on above: Performed By: #### C MP #### [facility] [address] [place] [address] Dr. Ekta Funk Lymphocytes/100 WBC (Bld) 14.9 % Critically low 20.5-60.0 [facility] Comment on above: Performed By: #### C MP #### [facility] [address] [place] [address] Dr. Ekta Funk MANUAL DIFF REQ NO Normal [facility] Comment on above: Performed By: #### C MP #### [facility] [address] [place] [address] Dr. Ekta Funk MCH (RBC) [Entitic mass] 32.5 pg Normal 26.7-34.0 [facility] Comment on above: Performed By: #### C MP #### [facility] [address] [place] [address] Dr. Ekta Funk MCHC (RBC) [Mass/Vol] 33.8 g/dL Normal 29.9-35.2 [facility] Comment on above: Performed By: #### C MP #### [facility] [address] [place] [address] Dr. Ekta Funk MCV (RBC) [Entitic vol] 96.0 fL Normal 81.0-99.0 [facility] Comment on above: Performed By: #### C MP #### [facility] [address] [place] [address] Dr. Ekta Funk MONO # 0.9 103/ul Critically high 0.3-0.8 [facility] Comment on above: Performed By: #### C MP #### [facility] [address] [place] [address] Dr. Ekta Funk Monocytes/100 WBC (Bld) 9.7 % Normal 1.7-12.0 [facility] Comment on above: Performed By: #### C MP #### [facility] [address] [place] [address] Dr. Ekta Funk NEUT # 6.4 103/ul Normal 1.4-6.5 [facility] Comment on above: Performed By: #### C MP #### [facility] [address] [address] [address] Ekta Funk Neutrophils/100 WBC (Bld) 70.0 % Normal 43.0-75.0 [facility] Comment on above: Performed By: #### C MP #### [facility] [address] [place] [address] Dr. Ekta Funk Platelet mean volume (Bld) [Entitic vol] 9.3 fL Critically low 9.5-13.5 [facility] Comment on above: Performed By: #### C MP #### [facility] [address] [place] [address] Dr. Ekta Funk PLT 308 103/ul Normal 150-450 [facility] Comment on above: Performed By: #### C MP #### [facility] [address] [place] [address] Dr. Ekta Funk RBC 3.54 106/ul Critically low 4.20-5.40 [facility] Comment on above: Performed By: #### C MP #### [facility] [address] [place] [address] Dr. Ekta Funk WBC 9.1 103/ul Normal 4.0-11.0 [facility] Comment on above: Performed By: #### C MP #### [facility] [address] [place] [address] Dr. Ekta Funk CPKon 11-24-2022 CK [Catalytic activity/Vol] 21 U/L Critically low 26-192 [facility] Comment on above: Performed By: #### B 12FOL, VITAD, IRON #### [facility] [address] [place] [address] STROKE HEAD WOon [...] by: VANESSA PARADA Date: 2022-11-24 11:09 Normal [facility] CTA HEAD WO W CONon 11-25-19 CTA [...] for further evaluation. IMPRESSION: Electronically authenticated by: DANIEL MARIE Date: 2022-11-24 12:41 Normal [facility] CULTURE URINEon 11-24-2022 CULTURE URINE Culture Observations : NO GROWTH. Normal The [facility] Comment on above: Performed By: #### I NSULIN #### [facility] [address] [place] [address] Dr. Ekta Funk Covid-19 PCR (CVDTB)on 11-08 SARS-CoV-2 (COVID-19) RNA GANESH+probe Ql (Unsp spec) Not detected Normal NOT DETECTED The [facility] Comment on above: Result Comment: When diagnostic [...] for this test is supported by the [employer]'s declaration that [...] used). Performed By: #### C VDTB #### [facility] [address] [place] [address] Dr. Ekta Funk ER URINE PROFILEon 3 Bilirubin Ql (U) Negative Normal NEGATIVE [facility] Comment on above: Performed By: #### C BC #### [facility] [address] [place] [address] Dr. Ekta Funk Clarity (U) CLEAR Normal CLEAR [facility] Comment on above: Performed By: #### C BC #### [facility] [address] [place] [address] Dr. Ekta Funk Color (U) LT. YELLOW Normal YELLOW [facility] Comment on above: Performed By: #### C BC #### [facility] [address] [place] [address] Dr. Ekta COLÓN A micrscopic examination will be performed if indicated. Normal [facility] Comment on above: Performed By: #### C BC #### [facility] [address] [place] [address] Dr. Ekta Funk Glucose Ql (U) Negative Normal NEGATIVE [facility] Comment on above: Performed By: #### C BC #### [facility] [address] [place] [address] Dr. Ekta Funk Hemoglobin Ql (U) Negative Normal NEGATIVE [facility] Comment on above: Performed By: #### C BC #### [facility] [address] [place] [address] Dr. Ekta Funk Ketones Ql (U) Negative Normal NEGATIVE [facility] Comment on above: Performed By: #### C BC #### [facility] [address] [address] [address] Ekta Funk LEUKOCYTES Negative Normal NEGATIVE [facility] Comment on above: Performed By: #### C BC #### [facility] [address] [place] [address] Dr. Ekta Funk Nitrite Ql (U) Negative Normal NEGATIVE [facility] Comment on above: Performed By: #### C BC #### [facility] [address] [place] [address] Dr. Ekta Funk pH (U) 5.5 [pH] Normal 5-9 [facility] Comment on above: Performed By: #### C BC #### [facility] [address] [place] [address] Dr. Ekta Funk SPEC GRAVITY 1.020 Normal 1.005-<=1.025 [facility] Comment on above: Performed By: #### C BC #### [facility] [address] [place] [address] Dr. Ekta Funk UA PROTEIN Negative Normal NEGATIVE/ TRACE [facility] Comment on above: Performed By: #### C BC #### [facility] [address] [place] [address] Dr. Ekta Funk UR MICRO IND NOT INDICATED Normal [facility] Comment on above: Performed By: #### C BC #### [facility] [address] [place] [address] Dr. Ekta Funk Urobilinogen Qn (U) 0.2 {Ivan'U}/dL Normal 0.2 - 1. 0 [facility] Comment on above: Performed By: #### C BC #### [facility] [address] [place] [address] Dr. Ekta Funk GLYCOHEMOGLOBIN A1Con 2022 ADA RECOMMENDATION SEE BELOW Normal [facility] Comment on above: Result Comment: ADA RECOMMENDED LIMIT 4.0 - 6.0 ADA THERAPEUTIC TARGET < 7.0 ACTION SUGGESTED > 7.0 Performed By: #### B 12FOL, VITAD, IRON #### [facility] [address] [place] [address] Dr. Ekta Funk Glucose [Mass/Vol] 143 mg/dL Normal [facility] Comment on above: Performed By: #### B 12FOL, VITAD, IRON #### [facility] [address] [place] [address] Dr. Ekta Funk HbA1c (Bld) [Mass fraction] 6.6 % Critically high 4.5-6.2 [facility] Comment on above: Performed By: #### B 12FOL, VITAD, IRON #### [facility] [address] [place] [address] Dr. Ekta Funk LACTATE/LACTIC ACIDon 2022 Lactate [Moles/Vol] 1.6 mmol/L Normal 0.4-2.0 [facility] Comment on above: Performed By: #### C MP #### [facility] [address] [place] [address] Dr. Ekta Funk Lactate [Moles/Vol] 2.1 mmol/L Critically high 0.4-2.0 [facility] Comment on above: Performed By: #### B 12FOL, VITAD, IRON #### [facility] [address] [place] [address] Dr. Ekta Funk LIPASEon 11-24-2022 Lipase [Catalytic activity/Vol] 165.0 U/L Normal 73.0-393.0 [facility] Comment on above: Performed By: #### B 12FOL, VITAD, IRON #### [facility] [address] [place] [address] Dr. Ekta Funk LIPID PROFILEon 11-24-2022 CHOL-HDL RATIO NORM SEE BELOW Normal [facility] Comment on above: Result Comment: 3.3 - 4.4 LOW RISK 4.4 - 7.1 AVERAGE RISK 7.1 - 11.0 MODERATE RISK >11.0 HIGH RISK Performed By: #### B 12FOL, VITAD, IRON #### [facility] [address] [place] [address] Dr. Ekta Funk Cholesterol [Mass/Vol] 248 mg/dL Critically high <=200 [facility] Comment on above: Performed By: #### B 12FOL, VITAD, IRON #### [facility] [address] [address] [address] Ekta Funk Cholesterol in HDL [Mass/Vol] 58 mg/dL Normal 40-60 [facility] Comment on above: Performed By: #### B 12FOL, VITAD, IRON #### [facility] [address] [address] [address] Ekta Funk Cholesterol in LDL [Mass/Vol] 165.6 mg/dL Normal [facility] Comment on above: Performed By: #### B 12FOL, VITAD, IRON #### [facility] [address] [address] [address] Ekta Funk Cholesterol.total/Ch olesterol in HDL [Mass ratio] 4.3 {ratio} Normal [facility] Comment on above: Performed By: #### B 12FOL, VITAD, IRON #### [facility] [address] [address] [address] Ekta Funk HDL NORMAL > or = 60 mg/dl - LO W CARDIOVASCULAR RISK <40 mg/dl - HIGH CARDIOVASCULAR RISK Normal [facility] Comment on above: Performed By: #### B 12FOL, VITAD, IRON #### [facility] [address] [address] [address] Ekta Funk LDL CALC NORMAL SEE BELOW Normal [facility] Comment on above: Result Comment: <100 mg/dl OPTIMAL 100 - 129 mg/dl NEAR OR ABOVE OPTIMAL 130 - 159 mg/dl BORDERLINE HIGH 160 - 189 mg/dl HIGH >190 mg/dl VERY HIGH Performed By: #### B 12FOL, VITAD, IRON #### [facility] [address] [address] [address] Ekta Funk Triglyceride [Mass/Vol] 122 mg/dL Normal <=150 [facility] Comment on above: Performed By: #### B 12FOL, VITAD, IRON #### [facility] [address] [address] [address] Ekta Funk VLDL CALC 24.4 mg/dL Normal [facility] Comment on above: Performed By: #### B 12FOL, VITAD, IRON #### [facility] [address] [address] [address] Ekta Funk MRI BRAIN WO CONon [...] RAVEN ELAINE Date: 2022-11-24 19:35 Normal The [facility] PROF 14(COMP METB)on 023 Albumin [Mass/Vol] 2.7 g/dL Critically low 3.4-5.0 Th e [facility] Comment on above: Performed By: #### B 12FOL, VITAD, IRON #### [facility] [address] [place], [place] [address] Dr. Ekta Funk Albumin/Globulin [Mass ratio] 0.6 {ratio} Normal [facility] Comment on above: Performed By: #### B 12FOL, VITAD, IRON #### [facility] [address] [place], [place] [address] Dr. Ekta Funk ALP [Catalytic activity/Vol] 85 U/L Normal 46-116 [facility] Comment on above: Performed By: #### B 12FOL, VITAD, IRON #### [facility] [address] [address] [address] Ekta Funk ALT [Catalytic activity/Vol] 18 U/L Normal 14-59 [facility] Comment on above: Performed By: #### B 12FOL, VITAD, IRON #### [facility] [address] [place] [address] Dr. Ekta Funk Anion gap [Moles/Vol] 18.9 mmol/L Normal [facility] Comment on above: Performed By: #### B 12FOL, VITAD, IRON #### [facility] [address] [place] [address] Dr. Ekta Funk AST [Catalytic activity/Vol] 16 U/L Normal 15-37 [facility] Comment on above: Performed By: #### B 12FOL, VITAD, IRON #### [facility] [address] [place] [address] Dr. Ekta Funk Bilirubin [Mass/Vol] 0.4 mg/dL Normal 0.2-1.0 [facility] Comment on above: Performed By: #### B 12FOL, VITAD, IRON #### [facility] [address] [place] [address] Dr. Ekta Funk Calcium [Mass/Vol] 9.5 mg/dL Normal 8.5-10.1 [facility] Comment on above: Performed By: #### B 12FOL, VITAD, IRON #### [facility] [address] [address] [address] Ekta Funk Chloride [Moles/Vol] 108 mmol/L Critically high 98-107 [facility] Comment on above: Performed By: #### B 12FOL, VITAD, IRON #### [facility] [address] [place] [address] Dr. Ekta Funk CO2 [Moles/Vol] 21.1 mmol/L Normal 21.0-32.0 [facility] Comment on above: Performed By: #### B 12FOL, VITAD, IRON #### [facility] [address] [place] [address] Dr. Ekta Funk Creatinine [Mass/Vol] 2.08 mg/dL Critically high 0.55-1.02 [facility] Comment on above: Performed By: #### B 12FOL, VITAD, IRON #### [facility] [address] [address] [address] Ekta Funk EGFR-AF CHINESE 28 mL/min/1.73m2 Critically low >=60 [facility] Comment on above: Performed By: #### B 12FOL, VITAD, IRON #### [facility] [address] [address] [address] Ekta Funk EGFR-NON AF CHINESE 23 mL/min/1.73m2 Critically low >=60 [facility] Comment on above: Performed By: #### B 12FOL, VITAD, IRON #### [facility] [address] [place] [address] Dr. Ekta Funk Globulin (S) [Mass/Vol] 4.6 g/dL Normal [facility] Comment on above: Performed By: #### B 12FOL, VITAD, IRON #### [facility] [address] [address] [address] Ekta Funk Glucose [Mass/Vol] 119 mg/dL Critically high 74-106 [facility] Comment on above: Performed By: #### B 12FOL, VITAD, IRON #### [facility] [address] [place] [address] Dr. Ekta Funk Potassium [Moles/Vol] 5.0 mmol/L Normal 3.5-5.1 [facility] Comment on above: Performed By: #### B 12FOL, VITAD, IRON #### [facility] [address] [address] [address] Ekta Funk Protein [Mass/Vol] 7.3 g/dL Normal 6.4-8.2 [facility] Comment on above: Performed By: #### B 12FOL, VITAD, IRON #### [facility] [address] [address] [address] Ekta Funk Sodium [Moles/Vol] 143 mmol/L Normal 136-145 [facility] Comment on above: Performed By: #### B 12FOL VITAD, IRON #### [facility] [address] [place] [address] Dr. Ekta Funk Urea nitrogen [Mass/Vol] 37.0 mg/dL Critically high 7.0-18.0 [facility] Comment on above: Performed By: #### B 12FOL VITAD, IRON #### [facility] [address] [address] [address] Ekta Funk Urea nitrogen/Creatinine [Mass ratio] 17.8 mg/mg Normal [facility] Comment on above: Performed By: #### B ElviraFOLNENOAD, IRON #### [facility] [address] [place] [address] Dr. Ekta Funk TROPONIN, HIGH SENSITIVITYon 11-24-2022 HSTROP 14.1 pg/mL Normal 4.0-51.3 [facility] Comment on above: Result Comment: CUT- OFF POINTS HAVE BEEN ESTABLISHED BASED ON THE FOURTH UNIVERSAL DEFINITIONS OF MYOCARDIAL INFARCTION. THE UPPER REFERENCE LIMIT (URL) OF TROPONIN, DEFINED THE 99TH PERCENTILE OF cTnI DISTRIBUTION IN A REFERENCE POPULATION, HAS BEEN CONFIRMED THE DECISION THRESHOLD FOR HI DIAGNOSIS. Performed By: #### B NENO LAUGHLINAD, IRON #### [facility] [address] [place] [address] Dr. Ekta Funk TSHon 11-24-2022 TSH 1.184 uIU/mL Normal 0.358-3.740 [facility] Comment on above: Performed By: #### B 12FOL VITAD, IRON #### [facility] [address] [place] [address] Dr. Ekta Funk XR CHEST 1 Von [...] NATALIIA TATE Date: 2022-11-24 11:00 Normal The [facility] BNPon 11-13-2022 Natriuretic peptide B (Bld) [Mass/Vol] 565.0 pg/mL Normal <=900.0 [facility] Comment on above: Performed By: #### I NSULIN #### [facility] [address] [place] [address] Dr. Ekta Funk CBC AUTO DIFFon 11-13-2022 BASO # 0.1 103/ul Normal 0.0-0.1 [facility] Comment on above: Performed By: #### C BC #### [facility] [address] [place] [address] Dr. Ekta Funk Basophils/100 WBC (Bld) 0.6 % Normal 0.2-2.0 [facility] Comment on above: Performed By: #### C BC #### [facility] [address] [place] [address] Dr. Ekta Funk EO # 0.4 103/ul Normal 0.0-0.7 [facility] Comment on above: Performed By: #### C BC #### [facility] [address] [place] [address] Dr. Ekta Funk Eosinophils/100 WBC (Bld) 3.7 % Normal 0.9-7.0 [facility] Comment on above: Performed By: #### C BC #### [facility] [address] [place] [address] Dr. Ekta Funk Erythrocyte distribution width (RBC) [Ratio] 13.2 % Normal 11.0-15.0 [facility] Comment on above: Performed By: #### C BC #### [facility] [address] [place] [address] Dr. Ekta Funk Hematocrit (Bld) [Volume fraction] 36.7 % Normal 36.0-48.0 [facility] Comment on above: Performed By: #### C BC #### [facility] [address] [address] [address] Ekta Funk Hemoglobin (Bld) [Mass/Vol] 12.4 g/dL Normal 12.0-16.0 [facility] Comment on above: Performed By: #### C BC #### [facility] [address] [address] [address] Ekta Funk IG # 0.10 10e3/ul Critically high 0.00-0.03 [facility] Comment on above: Performed By: #### C BC #### [facility] [address] [place] [address] Dr. Ekta Funk IG % 1.0 % Critically high 0.0-0.5 [facility] Comment on above: Performed By: #### C BC #### [facility] [address] [place] [address] Dr. Ekta Funk LYMPH # 1.5 103/ul Normal 1.2-3.8 [facility] Comment on above: Performed By: #### C BC #### [facility] [address] [place] [address] Dr. Ekta Funk Lymphocytes/100 WBC (Bld) 14.9 % Critically low 20.5-60.0 [facility] Comment on above: Performed By: #### C BC #### [facility] [address] [place] [address] Dr. Ekta Funk MANUAL DIFF REQ NO Normal [facility] Comment on above: Performed By: #### C BC #### [facility] [address] [place] [address] Dr. Ekta Funk MCH (RBC) [Entitic mass] 32.8 pg Normal 26.7-34.0 [facility] Comment on above: Performed By: #### C BC #### [facility] [address] [place] [address] Dr. Ekta Funk MCHC (RBC) [Mass/Vol] 33.8 g/dL Normal 29.9-35.2 [facility] Comment on above: Performed By: #### C BC #### [facility] [address] [address] [address] Ekta Funk MCV (RBC) [Entitic vol] 97.1 fL Normal 81.0-99.0 [facility] Comment on above: Performed By: #### C BC #### [facility] [address] [address] [address] Ekta Funk MONO # 0.8 103/ul Normal 0.3-0.8 [facility] Comment on above: Performed By: #### C BC #### [facility] [address] [address] [address] Ekta Funk Monocytes/100 WBC (Bld) 7.7 % Normal 1.7-12.0 [facility] Comment on above: Performed By: #### C BC #### [facility] [address] [place] [address] Dr. Ekta Funk NEUT # 7.3 103/ul Critically high 1.4-6.5 [facility] Comment on above: Performed By: #### C BC #### [facility] [address] [place] [address] Dr. Ekta Funk Neutrophils/100 WBC (Bld) 72.1 % Normal 43.0-75.0 [facility] Comment on above: Performed By: #### C BC #### [facility] [address] [place] [address] Dr. Ekta Funk Platelet mean volume (Bld) [Entitic vol] 9.4 fL Critically low 9.5-13.5 [facility] Comment on above: Performed By: #### C BC #### [facility] [address] [place] [address] Dr. Ekta Funk PLT 251 103/ul Normal 150-450 [facility] Comment on above: Performed By: #### C BC #### [facility] [address] [place] [address] Dr. Ekta Funk RBC 3.78 106/ul Critically low 4.20-5.40 [facility] Comment on above: Performed By: #### C BC #### [facility] [address] [place] [address] Dr. Ekta Funk WBC 10.1 103/ul Normal 4.0-11.0 [facility] Comment on above: Performed By: #### C BC #### [facility] [address] [address] [address] Ekta Funk FREE THYROXINE INDEX T7on FTI 2.73 Normal 1.30-4.50 [facility] Comment on above: Performed By: #### I NSULIN #### [facility] [address] [address] [address] Ekta Funk T3U 35.0 % Normal 30.0-39.0 [facility] Comment on above: Performed By: #### I NSULIN #### [facility] [address] [address] [address] Ekta Funk T4 [Mass/Vol] 7.80 ug/dL Normal 4.80-13.90 [facility] Comment on above: Performed By: #### I NSULIN #### [facility] [address] [address] [address] Ekta Funk GLYCOHEMOGLOBIN A1Con 2022 ADA RECOMMENDATION SEE BELOW Normal [facility] Comment on above: Result Comment: ADA RECOMMENDED LIMIT 4.0 - 6.0 ADA THERAPEUTIC TARGET < 7.0 ACTION SUGGESTED > 7.0 Performed By: #### B 12FOL, VITAD, IRON #### [facility] [address] [address] [address] Ekta Funk Glucose [Mass/Vol] 134 mg/dL Normal [facility] Comment on above: Performed By: #### B 12FOL, VITAD, IRON #### [facility] [address] [address] [address] Ekta Funk HbA1c (Bld) [Mass fraction] 6.3 % Critically high 4.5-6.2 [facility] Comment on above: Performed By: #### B 12FOL, VITAD, IRON #### [facility] [address] [address] [address] Ekta Funk IRONon 11-13-2022 Iron [Mass/Vol] 55.0 ug/dL Normal 50.0-170.0 [facility] Comment on above: Performed By: #### B 12FOL, VITAD, IRON #### [facility] [address] [place], [place] [address] Dr. Ekta Funk LIPID PROFILEon 11-13-2022 CHOL-HDL RATIO NORM SEE BELOW Normal [facility] Comment on above: Result Comment: 3.3 - 4.4 LOW RISK 4.4 - 7.1 AVERAGE RISK 7.1 - 11.0 MODERATE RISK >11.0 HIGH RISK Performed By: #### I NSULIN #### [facility] [address] [address] [address] Ekta Funk Cholesterol [Mass/Vol] 294 mg/dL Critically high <=200 [facility] Comment on above: Performed By: #### I NSULIN #### [facility] [address] [address] [address] Ekta Funk Cholesterol in HDL [Mass/Vol] 64 mg/dL Critically high 40-60 [facility] Comment on above: Performed By: #### I NSULIN #### [facility] [address] [address] [address] Ekta Funk Cholesterol in LDL [Mass/Vol] 197.2 mg/dL Normal [facility] Comment on above: Performed By: #### I NSULIN #### [facility] [address] [address] [address] Ekta Funk Cholesterol.total/Ch olesterol in HDL [Mass ratio] 4.6 {ratio} Normal [facility] Comment on above: Performed By: #### I NSULIN #### [facility] [address] [address] [address] Ekta Funk HDL NORMAL > or = 60 mg/dl - LO W CARDIOVASCULAR RISK <40 mg/dl - HIGH CARDIOVASCULAR RISK Normal [facility] Comment on above: Performed By: #### I NSULIN #### [facility] [address] [address] [address] Ekta Fnuk LDL CALC NORMAL SEE BELOW Normal [facility] Comment on above: Result Comment: <100 mg/dl OPTIMAL 100 - 129 mg/dl NEAR OR ABOVE OPTIMAL 130 - 159 mg/dl BORDERLINE HIGH 160 - 189 mg/dl HIGH >190 mg/dl VERY HIGH Performed By: #### I NSULIN #### [facility] [address] [place] [address] Dr. Ekta Funk Triglyceride [Mass/Vol] 164 mg/dL Critically high <=150 [facility] Comment on above: Performed By: #### I NSULIN #### [facility] [address] [place] [address] Dr. Ekta Funk VLDL CALC 32.8 mg/dL Normal [facility] Comment on above: Performed By: #### I NSULIN #### [facility] [address] [place] [address] Dr. Ekta Funk PROF 14(COMP METB)on 023 Albumin [Mass/Vol] 3.0 g/dL Critically low 3.4-5.0 [facility] Comment on above: Performed By: #### I NSULIN #### [facility] [address] [place] [address] Dr. Ekta Funk Albumin/Globulin [Mass ratio] 0.6 {ratio} Normal [facility] Comment on above: Performed By: #### I NSULIN #### [facility] [address] [place] [address] Dr. Ekta Funk ALP [Catalytic activity/Vol] 92 U/L Normal 46-116 [facility] Comment on above: Performed By: #### I NSULIN #### [facility] [address] [place] [address] Dr. Ekta Funk ALT [Catalytic activity/Vol] 26 U/L Normal 14-59 [facility] Comment on above: Performed By: #### I NSULIN #### [facility] [address] [place] [address] Dr. Ekta Funk Anion gap [Moles/Vol] 16.2 mmol/L Normal [facility] Comment on above: Performed By: #### I NSULIN #### [facility] [address] [place] [address] Dr. Ekta Funk AST [Catalytic activity/Vol] 16 U/L Normal 15-37 [facility] Comment on above: Performed By: #### I NSULIN #### [facility] [address] [place] [address] Dr. Ekta Funk Bilirubin [Mass/Vol] 0.5 mg/dL Normal 0.2-1.0 [facility] Comment on above: Performed By: #### I NSULIN #### [facility] [address] [place] [address] Dr. Ekta Funk Calcium [Mass/Vol] 9.7 mg/dL Normal 8.5-10.1 [facility] Comment on above: Performed By: #### I NSULIN #### [facility] [address] [place] [address] Dr. Ekta Funk Chloride [Moles/Vol] 105 mmol/L Normal 98-107 [facility] Comment on above: Performed By: #### I NSULIN #### [facility] [address] [place] [address] Dr. Ekta Funk CO2 [Moles/Vol] 24.9 mmol/L Normal 21.0-32.0 [facility] Comment on above: Performed By: #### I NSULIN #### [facility] [address] [place] [address] Dr. Ekta Funk Creatinine [Mass/Vol] 2.18 mg/dL Critically high 0.55-1.02 [facility] Comment on above: Performed By: #### I NSULIN #### [facility] [address] [place] [address] Dr. Ekta Funk EGFR-AF CHINESE 27 mL/min/1.73m2 Critically low >=60 [facility] Comment on above: Performed By: #### I NSULIN #### [facility] [address] [place] [address] Dr. Ekta Funk EGFR-NON AF CHINESE 22 mL/min/1.73m2 Critically low >=60 [facility] Comment on above: Performed By: #### I NSULIN #### [facility] [address] [place] [address] Dr. Ekta Funk Globulin (S) [Mass/Vol] 4.7 g/dL Normal [facility] Comment on above: Performed By: #### I NSULIN #### [facility] [address] [place] [address] Dr. Ekta Funk Glucose [Mass/Vol] 114 mg/dL Critically high 74-106 T [facility] Comment on above: Performed By: #### I NSULIN #### [facility] [address] [place] [address] Dr. kEta Funk Potassium [Moles/Vol] 5.1 mmol/L Normal 3.5-5.1 [facility] Comment on above: Performed By: #### I NSULIN #### [facility] [address] [place] [address] Dr. Ekta Funk Protein [Mass/Vol] 7.7 g/dL Normal 6.4-8.2 [facility] Comment on above: Performed By: #### I NSULIN #### [facility] [address] [place] [address] Dr. Ekta Funk Sodium [Moles/Vol] 141 mmol/L Normal 136-145 [facility] Comment on above: Performed By: #### I NSULIN #### [facility] [address] [place] [address] Dr. Ekta Funk Urea nitrogen [Mass/Vol] 51.0 mg/dL Critically high 7.0-18.0 [facility] Comment on above: Performed By: #### I NSULIN #### [facility] [address] [place] [address] Dr. Ekta Funk Urea nitrogen/Creatinine [Mass ratio] 23.4 mg/mg Normal [facility] Comment on above: Performed By: #### I NSULIN #### [facility] [address] [place] [address] Dr. Ekta Funk TSHon 11-13-2022 TSH 0.935 uIU/mL Normal 0.358-3.740 [facility] Comment on above: Performed By: #### I NSULIN #### [facility] [address] [place] [address] Dr. Ekta Funk XR CHEST 2 Von [...] GODWIN BECK Date: 2022-11-13 15:40 Normal The [facility] PROF 14(COMP METB)on 023 Albumin [Mass/Vol] 3.0 g/dL Critically low 3.4-5.0 Th e [facility] Comment on above: Performed By: #### B 12FOL, VITAD, IRON #### [facility] [address] [place] [address] Dr. Ekta Funk Albumin/Globulin [Mass ratio] 0.7 {ratio} Normal [facility] Comment on above: Performed By: #### B 12FOL, VITAD, IRON #### [facility] [address] [place] [address] Dr. Ekta Funk ALP [Catalytic activity/Vol] 89 U/L Normal 46-116 [facility] Comment on above: Performed By: #### B 12FOL, VITAD, IRON #### [facility] [address] [place] [address] Dr. Ekta Funk ALT [Catalytic activity/Vol] 29 U/L Normal 14-59 [facility] Comment on above: Performed By: #### B 12FOL, VITAD, IRON #### [facility] [address] [place] [address] Dr. Ekta Funk Anion gap [Moles/Vol] 15.2 mmol/L Normal [facility] Comment on above: Performed By: #### B 12FOL, VITAD, IRON #### [facility] [address] [place] [address] Dr. Ekta Funk AST [Catalytic activity/Vol] 14 U/L Critically low 15-37 [facility] Comment on above: Performed By: #### B 12FOL, VITAD, IRON #### [facility] [address] [address] [address] Ekta Funk Bilirubin [Mass/Vol] 0.4 mg/dL Normal 0.2-1.0 [facility] Comment on above: Performed By: #### B 12FOL, VITAD, IRON #### [facility] [address] [place] [address] Dr. Ekta Funk Calcium [Mass/Vol] 9.1 mg/dL Normal 8.5-10.1 [facility] Comment on above: Performed By: #### B 12FOL, VITAD, IRON #### [facility] [address] [place] [address] [address] Ekta Funk Chloride [Moles/Vol] 106 mmol/L Normal 98-107 [facility] Comment on above: Performed By: #### B 12FOL, VITAD, IRON #### [facility] [address] [place] [address] [address] Ekta Funk CO2 [Moles/Vol] 24.2 mmol/L Normal 21.0-32.0 [facility] Comment on above: Performed By: #### B 12FOL, VITAD, IRON #### [facility] [address] [place] [address] Dr. Ekta Funk Creatinine [Mass/Vol] 1.89 mg/dL Critically high 0.55-1.02 [facility] Comment on above: Performed By: #### B 12FOL, VITAD, IRON #### [facility] [address] [place] [address] [address] Ekta Funk EGFR-AF CHINESE 32 mL/min/1.73m2 Critically low >=60 [facility] Comment on above: Performed By: #### B 12FOL, VITAD, IRON #### [facility] [address] [place] [address] [address] Ekta Funk EGFR-NON AF CHINESE 26 mL/min/1.73m2 Critically low >=60 The [facility] Comment on above: Performed By: #### B 12FOL, VITAD, IRON #### [facility] [address] [place] [address] [address] Ekta Funk Globulin (S) [Mass/Vol] 4.1 g/dL Normal [facility] Comment on above: Performed By: #### B 12FOL, VITAD, IRON #### [facility] [address] [place] [address] Dr. Ekta Funk Glucose [Mass/Vol] 108 mg/dL Critically high 74-106 [facility] Comment on above: Performed By: #### B 12FOL, VITAD, IRON #### [facility] [address] [place] [address] Dr. Ekta Funk Potassium [Moles/Vol] 4.4 mmol/L Normal 3.5-5.1 [facility] Comment on above: Performed By: #### B 12FOL, VITAD, IRON #### [facility] [address] [place] [address] Dr. Ekta Funk Protein [Mass/Vol] 7.1 g/dL Normal 6.4-8.2 [facility] Comment on above: Performed By: #### B 12FOL, VITAD, IRON #### [facility] [address] [place] [address] Dr. Ekta Funk Sodium [Moles/Vol] 141 mmol/L Normal 136-145 [facility] Comment on above: Performed By: #### B 12FOL, VITAD, IRON #### [facility] [address] [place] [address] Dr. Ekta Funk Urea nitrogen [Mass/Vol] 40.0 mg/dL Critically high 7.0-18.0 [facility] Comment on above: Performed By: #### B 12FOL, VITAD, IRON #### [facility] [address] [place] [address] Dr. Ekta Funk Urea nitrogen/Creatinine [Mass ratio] 21.2 mg/mg Normal [facility] Comment on above: Performed By: #### B 12FOL, VITAD, IRON #### [facility] [address] [place] [address] Dr. Ekta Funk BNPon 10-23-2022 Natriuretic peptide B (Bld) [Mass/Vol] 507.0 pg/mL Normal <=900.0 [facility] Comment on above: Performed By: #### B 12FOL, VITAD, IRON #### [facility] [address] [place] [address] Dr. Ekta Funk CBC AUTO DIFFon 10-23-2022 BASO # 0.0 103/ul Normal 0.0-0.1 [facility] Comment on above: Performed By: #### C BC #### [facility] [address] [place] [address] Dr. Ekta Funk Basophils/100 WBC (Bld) 0.2 % Normal 0.2-2.0 [facility] Comment on above: Performed By: #### C BC #### [facility] [address] [place] [address] Dr. Ekta Funk EO # 0.1 103/ul Normal 0.0-0.7 [facility] Comment on above: Performed By: #### C BC #### [facility] [address] [place] [address] Dr. Ekta Funk Eosinophils/100 WBC (Bld) 1.1 % Normal 0.9-7.0 [facility] Comment on above: Performed By: #### C BC #### [facility] [address] [place] [address] Dr. Ekta Funk Erythrocyte distribution width (RBC) [Ratio] 12.8 % Normal 11.0-15.0 [facility] Comment on above: Performed By: #### C BC #### [facility] [address] [place] [address] Dr. Ekta Funk Hematocrit (Bld) [Volume fraction] 37.1 % Normal 36.0-48.0 [facility] Comment on above: Performed By: #### C BC #### [facility] [address] [place] [address] Dr. Ekta Funk Hemoglobin (Bld) [Mass/Vol] 13.0 g/dL Normal 12.0-16.0 [facility] Comment on above: Performed By: #### C BC #### [facility] [address] [place] [address] Dr. Ekta Funk IG # 0.11 10e3/ul Critically high 0.00-0.03 [facility] Comment on above: Performed By: #### C BC #### [facility] [address] [place] [address] Dr. Ekta Funk IG % 1.1 % Critically high 0.0-0.5 [facility] Comment on above: Performed By: #### C BC #### [facility] [address] [place] [address] Dr. Ekta Funk LYMPH # 1.6 103/ul Normal 1.2-3.8 [facility] Comment on above: Performed By: #### C BC #### [facility] [address] [place] [address] Dr. Ekta Funk Lymphocytes/100 WBC (Bld) 15.6 % Critically low 20.5-60.0 [facility] Comment on above: Performed By: #### C BC #### [facility] [address] [place] [address] Dr. Ekta Funk MANUAL DIFF REQ NO Normal [facility] Comment on above: Performed By: #### C BC #### [facility] [address] [place] [address] Dr. Ekta Funk MCH (RBC) [Entitic mass] 32.8 pg Normal 26.7-34.0 [facility] Comment on above: Performed By: #### C BC #### [facility] [address] [place] [address] Dr. Ekta Funk MCHC (RBC) [Mass/Vol] 35.0 g/dL Normal 29.9-35.2 [facility] Comment on above: Performed By: #### C BC #### [facility] [address] [place] [address] Dr. Ekta Funk MCV (RBC) [Entitic vol] 93.7 fL Normal 81.0-99.0 [facility] Comment on above: Performed By: #### C BC #### [facility] [address] [place] [address] Dr. Ekta Funk MONO # 0.9 103/ul Critically high 0.3-0.8 [facility] Comment on above: Performed By: #### C BC #### [facility] [address] [place] [address] Dr. Ekta Funk Monocytes/100 WBC (Bld) 8.3 % Normal 1.7-12.0 [facility] Comment on above: Performed By: #### C BC #### [facility] [address] [place] [address] Dr. Ekta Funk NEUT # 7.5 103/ul Critically high 1.4-6.5 [facility] Comment on above: Performed By: #### C BC #### [facility] [address] [place] [address] Dr. Ekta Fukn Neutrophils/100 WBC (Bld) 73.7 % Normal 43.0-75.0 [facility] Comment on above: Performed By: #### C BC #### [facility] [address] [place] [address] Dr. Ekta Funk Platelet mean volume (Bld) [Entitic vol] 10.3 fL Normal 9.5-13.5 [facility] Comment on above: Performed By: #### C BC #### [facility] [address] [place] [address] Dr. Ekta Funk PLT 135 103/ul Critically low 150-450 [facility] Comment on above: Performed By: #### C BC #### [facility] [address] [place], [place] [id number] Dr. Ekta Funk RBC 3.96 106/ul Critically low 4.20-5.40 [facility] Comment on above: Performed By: #### C BC #### [facility] [address] [place] [address] Dr. Ekta Funk WBC 10.2 103/ul Normal 4.0-11.0 [facility] Comment on above: Performed By: #### C BC #### [facility] [address] [place] [address] Dr. Ekta Funk PROF 14(COMP METB)on 023 Albumin [Mass/Vol] 2.7 g/dL Critically low 3.4-5.0 Th e [facility] Comment on above: Performed By: #### B 12FOL, VITAD, IRON #### [facility] [address] [place] [address] Dr. Ekta Funk Albumin/Globulin [Mass ratio] 0.8 {ratio} Normal [facility] Comment on above: Performed By: #### B 12FOL, VITAD, IRON #### [facility] [address] [place] [address] Dr. Ekta Funk ALP [Catalytic activity/Vol] 74 U/L Normal 46-116 [facility] Comment on above: Performed By: #### B 12FOL, VITAD, IRON #### [facility] [address] [place] [address] Dr. Ekta Funk ALT [Catalytic activity/Vol] 26 U/L Normal 14-59 [facility] Comment on above: Performed By: #### B 12FOL, VITAD, IRON #### [facility] [address] [place] [address] Dr. Ekta Funk Anion gap [Moles/Vol] 16.5 mmol/L Normal [facility] Comment on above: Performed By: #### B 12FOL, VITAD, IRON #### [facility] [address] [place] [address] Dr. Ekta Funk AST [Catalytic activity/Vol] 15 U/L Normal 15-37 [facility] Comment on above: Performed By: #### B 12FOL, VITAD, IRON #### [facility] [address] [place] [address] Dr. Ekta Funk Bilirubin [Mass/Vol] 0.4 mg/dL Normal 0.2-1.0 [facility] Comment on above: Performed By: #### B 12FOL, VITAD, IRON #### [facility] [address] [place] [address] Dr. Ekta Funk Calcium [Mass/Vol] 8.1 mg/dL Critically low 8.5-10.1 [facility] Comment on above: Performed By: #### B 12FOL, VITAD, IRON #### [facility] [address] [place] [address] Dr. Ekta Funk Chloride [Moles/Vol] 96 mmol/L Critically low 98-107 [facility] Comment on above: Performed By: #### B 12FOL, VITAD, IRON #### [facility] [address] [place] [address] Dr. Ekta Funk CO2 [Moles/Vol] 26.1 mmol/L Normal 21.0-32.0 [facility] Comment on above: Performed By: #### B 12FOL, VITAD, IRON #### [facility] [address] [place] [address] Dr. Ekta Funk Creatinine [Mass/Vol] 3.28 mg/dL Critically high 0.55-1.02 [facility] Comment on above: Performed By: #### B 12FOL, VITAD, IRON #### [facility] [address] [place] [address] Dr. Ekta Funk EGFR-AF CHINESE 17 mL/min/1.73m2 Critically low >=60 [facility] Comment on above: Performed By: #### B 12FOL, VITAD, IRON #### [facility] [address] [place] [address] Dr. Ekta Funk EGFR-NON AF CHINESE 14 mL/min/1.73m2 Critically low >=60 [facility] Comment on above: Performed By: #### B 12FOL, VITAD, IRON #### [facility] [address] [place] [address] Dr. Ekta Funk Globulin (S) [Mass/Vol] 3.6 g/dL Normal [facility] Comment on above: Performed By: #### B 12FOL, VITAD, IRON #### [facility] [address] [place] [address] Dr. Ekta Funk Glucose [Mass/Vol] 132 mg/dL Critically high 74-106 T [facility] Comment on above: Performed By: #### B 12FOL, VITAD, IRON #### [facility] [address] [place] [address] Dr. Ekta Funk Potassium [Moles/Vol] 4.6 mmol/L Normal 3.5-5.1 [facility] Comment on above: Performed By: #### B 12FOL, VITAD, IRON #### [facility] [address] [place] [address] Dr. Ekta Funk Protein [Mass/Vol] 6.3 g/dL Critically low 6.4-8.2 [facility] Comment on above: Performed By: #### B 12FOL, VITAD, IRON #### [facility] [address] [place] [address] Dr. Ekta Funk Sodium [Moles/Vol] 134 mmol/L Critically low 136-145 [facility] Comment on above: Performed By: #### B 12FOL, VITAD, IRON #### [facility] [address] [place] [address] Dr. Ekta Funk Urea nitrogen [Mass/Vol] 74.0 mg/dL Critically high 7.0-18.0 [facility] Comment on above: Performed By: #### B 12FOL, VITAD, IRON #### [facility] [address] [place] [address] Dr. Ekta Funk Urea nitrogen/Creatinine [Mass ratio] 22.6 mg/mg Normal [facility] Comment on above: Performed By: #### B 12FOL, VITAD, IRON #### [facility] [address] [place] [address] Dr. Ekta Funk BNPon 10-22-2022 Natriuretic peptide B (Bld) [Mass/Vol] 1411.0 pg/mL Critically high <=900.0 [facility] Comment on above: Performed By: #### B 12FOL, VITAD, IRON #### [facility] [address] [place] [address] Dr. Ekta Funk CBC AUTO DIFFon 10-22-2022 BASO # 0.0 103/ul Normal 0.0-0.1 [facility] Comment on above: Performed By: #### B 12FOL, VITAD, IRON #### [facility] [address] [place] [address] Dr. Ekta Funk Basophils/100 WBC (Bld) 0.3 % Normal 0.2-2.0 [facility] Comment on above: Performed By: #### B 12FOL, VITAD, IRON #### [facility] [address] [place] [address] Dr. Ekta Funk EO # 0.1 103/ul Normal 0.0-0.7 [facility] Comment on above: Performed By: #### B 12FOL, VITAD, IRON #### [facility] [address] [place] [address] Dr. Ekta Funk Eosinophils/100 WBC (Bld) 0.6 % Critically low 0.9-7.0 [facility] Comment on above: Performed By: #### B 12FOL, VITAD, IRON #### [facility] [address] [place] [address] Dr. Ekta Funk Erythrocyte distribution width (RBC) [Ratio] 12.9 % Normal 11.0-15.0 [facility] Comment on above: Performed By: #### B 12FOL, VITAD, IRON #### [facility] [address] [place] [address] Dr. Ekta Funk Hematocrit (Bld) [Volume fraction] 40.8 % Normal 36.0-48.0 [facility] Comment on above: Performed By: #### B 12FOL, VITAD, IRON #### [facility] [address] [place] [address] Dr. Ekta Funk Hemoglobin (Bld) [Mass/Vol] 14.0 g/dL Normal 12.0-16.0 [facility] Comment on above: Performed By: #### B 12FOL, VITAD, IRON #### [facility] [address] [place] [address] Dr. Ekta Funk IG # 0.09 10e3/ul Critically high 0.00-0.03 [facility] Comment on above: Performed By: #### B 12FOL, VITAD, IRON #### [facility] [address] [place] [address] Dr. Ekta Funk IG % 0.8 % Critically high 0.0-0.5 [facility] Comment on above: Performed By: #### B 12FOL, VITAD, IRON #### [facility] [address] [place] [address] Dr. Ekta Funk LYMPH # 1.8 103/ul Normal 1.2-3.8 [facility] Comment on above: Performed By: #### B 12FOL, VITAD, IRON #### [facility] [address] [place] [address] Dr. Ekta Funk Lymphocytes/100 WBC (Bld) 16.2 % Critically low 20.5-60.0 [facility] Comment on above: Performed By: #### B 12FOL, VITAD, IRON #### [facility] [address] [place] [address] Dr. Ekta Funk MANUAL DIFF REQ NO Normal [facility] Comment on above: Performed By: #### B 12FOL, VITAD, IRON #### [facility] [address] [place] [address] Dr. Ekta Funk MCH (RBC) [Entitic mass] 32.3 pg Normal 26.7-34.0 [facility] Comment on above: Performed By: #### B 12FOL, VITAD, IRON #### [facility] [address] [place] [address] Dr. Ekta Funk MCHC (RBC) [Mass/Vol] 34.3 g/dL Normal 29.9-35.2 [facility] Comment on above: Performed By: #### B 12FOL, VITAD, IRON #### [facility] [address] [place] [address] Dr. Ekta Funk MCV (RBC) [Entitic vol] 94.2 fL Normal 81.0-99.0 [facility] Comment on above: Performed By: #### B 12FOL, VITAD, IRON #### [facility] [address] [place] [address] Dr. Ekta Funk MONO # 0.8 103/ul Normal 0.3-0.8 [facility] Comment on above: Performed By: #### B 12FOL, VITAD, IRON #### [facility] [address] [place] [address] Dr. Ekta Funk Monocytes/100 WBC (Bld) 7.3 % Normal 1.7-12.0 [facility] Comment on above: Performed By: #### B 12FOL, VITAD, IRON #### [facility] [address] [place] [address] Dr. Ekta Funk NEUT # 8.1 103/ul Critically high 1.4-6.5 [facility] Comment on above: Performed By: #### B 12FOL, VITAD, IRON #### [facility] [address] [place] [address] Dr. Ekta Funk Neutrophils/100 WBC (Bld) 74.8 % Normal 43.0-75.0 [facility] Comment on above: Performed By: #### B 12FOL, VITAD, IRON #### [facility] [address] [place] [address] Dr. Ekta Funk Platelet mean volume (Bld) [Entitic vol] 9.8 fL Normal 9.5-13.5 [facility] Comment on above: Performed By: #### B 12FOL, VITAD, IRON #### [facility] [address] [place] [address] Dr. Ekta Funk PLT 226 103/ul Normal 150-450 [facility] Comment on above: Performed By: #### B 12FOL, VITAD, IRON #### [facility] [address] [place] [address] Dr. Ekta Funk RBC 4.33 106/ul Normal 4.20-5.40 [facility] Comment on above: Performed By: #### B 12FOL, VITAD, IRON #### [facility] [address] [address] [address] Ekta Funk WBC 10.9 103/ul Normal 4.0-11.0 [facility] Comment on above: Performed By: #### B 12FOL, VITAD, IRON #### [facility] [address] [place] [address] Dr. Ekta Funk PROF 14(COMP METB)on 023 Albumin [Mass/Vol] 3.1 g/dL Critically low 3.4-5.0 [facility] Comment on above: Performed By: #### B 12FOL, VITAD, IRON #### [facility] [address] [place] [address] [address] Ekta Funk Albumin/Globulin [Mass ratio] 0.7 {ratio} Normal [facility] Comment on above: Performed By: #### B 12FOL, VITAD, IRON #### [facility] [address] [place] [address] Dr. Ekta Funk ALP [Catalytic activity/Vol] 81 U/L Normal 46-116 [facility] Comment on above: Performed By: #### B 12FOL, VITAD, IRON #### [facility] [address] [place] [address] [address] Ekta Funk ALT [Catalytic activity/Vol] 30 U/L Normal 14-59 [facility] Comment on above: Performed By: #### B 12FOL, VITAD, IRON #### [facility] [address] [place] [address] [address] Ekta Funk Anion gap [Moles/Vol] 17.3 mmol/L Normal [facility] Comment on above: Performed By: #### B 12FOL, VITAD, IRON #### [facility] [address] [place] [address] [address] Ekta Funk AST [Catalytic activity/Vol] 11 U/L Critically low 15-37 [facility] Comment on above: Performed By: #### B 12FOL, VITAD, IRON #### [facility] [address] [address] [address] Ekta Funk Bilirubin [Mass/Vol] 0.5 mg/dL Normal 0.2-1.0 [facility] Comment on above: Performed By: #### B 12FOL, VITAD, IRON #### [facility] [address] [place] [address] Dr. Ekta Funk Calcium [Mass/Vol] 8.6 mg/dL Normal 8.5-10.1 [facility] Comment on above: Performed By: #### B 12FOL, VITAD, IRON #### [facility] [address] [address] [address] Ekta Funk Chloride [Moles/Vol] 95 mmol/L Critically low 98-107 [facility] Comment on above: Performed By: #### B 12FOL, VITAD, IRON #### [facility] [address] [place] [address] Dr. Ekta Funk CO2 [Moles/Vol] 27.3 mmol/L Normal 21.0-32.0 [facility] Comment on above: Performed By: #### B 12FOL, VITAD, IRON #### [facility] [address] [place] [address] Dr. Ekta Funk Creatinine [Mass/Vol] 3.17 mg/dL Critically high 0.55-1.02 [facility] Comment on above: Performed By: #### B 12FOL, VITAD, IRON #### [facility] [address] [place] [address] Dr. Ekta Funk EGFR-AF CHINESE 17 mL/min/1.73m2 Critically low >=60 [facility] Comment on above: Performed By: #### B 12FOL, VITAD, IRON #### [facility] [address] [place] [address] Dr. Ekta Funk EGFR-NON AF CHINESE 14 mL/min/1.73m2 Critically low >=60 [facility] Comment on above: Performed By: #### B 12FOL, VITAD, IRON #### [facility] [address] [place] [address] Dr. Ekta Funk Globulin (S) [Mass/Vol] 4.6 g/dL Normal [facility] Comment on above: Performed By: #### B 12FOL, VITAD, IRON #### [facility] [address] [place] [address] Dr. Ekta Funk Glucose [Mass/Vol] 139 mg/dL Critically high 74-106 T [facility] Comment on above: Performed By: #### B 12FOL, VITAD, IRON #### [facility] [address] [place] [address] Dr. Ekta Funk Potassium [Moles/Vol] 4.6 mmol/L Normal 3.5-5.1 [facility] Comment on above: Performed By: #### B 12FOL, VITAD, IRON #### [facility] [address] [place] [address] Dr. Ekta Funk Protein [Mass/Vol] 7.7 g/dL Normal 6.4-8.2 [facility] Comment on above: Performed By: #### B 12FOL, VITAD, IRON #### [facility] [address] [place] [address] Dr. Ekta Funk Sodium [Moles/Vol] 135 mmol/L Critically low 136-145 [facility] Comment on above: Performed By: #### B 12FOL, VITAD, IRON #### [facility] [address] [place] [address] Dr. Ekta Funk Urea nitrogen [Mass/Vol] 73.0 mg/dL Critically high 7.0-18.0 [facility] Comment on above: Performed By: #### B 12FOL, VITAD, IRON #### [facility] [address] [place] [address] Dr. Ekta Funk Urea nitrogen/Creatinine [Mass ratio] 23.0 mg/mg Normal [facility] Comment on above: Performed By: #### B 12FOL, VITAD, IRON #### [facility] [address] [place] [address] Dr. Ekta Funk BNPon 10-21-2022 Natriuretic peptide B (Bld) [Mass/Vol] 2007.0 pg/mL Critically high <=900.0 [facility] Comment on above: Performed By: #### C MP #### [facility] [address] [address] [address] Ekta Funk CBC AUTO DIFFon 10-21-2022 BASO # 0.0 103/ul Normal 0.0-0.1 [facility] Comment on above: Performed By: #### C BC #### [facility] [address] [place] [address] Dr. Ekta Funk Basophils/100 WBC (Bld) 0.2 % Normal 0.2-2.0 [facility] Comment on above: Performed By: #### C BC #### [facility] [address] [place] [address] Dr. Ekta Funk EO # 0.1 103/ul Normal 0.0-0.7 [facility] Comment on above: Performed By: #### C BC #### [facility] [address] [place] [address] Dr. Ekta Funk Eosinophils/100 WBC (Bld) 0.9 % Normal 0.9-7.0 [facility] Comment on above: Performed By: #### C BC #### [facility] [address] [place] [address] Dr. Ekta Funk Erythrocyte distribution width (RBC) [Ratio] 12.8 % Normal 11.0-15.0 [facility] Comment on above: Performed By: #### C BC #### [facility] [address] [place] [address] Dr. Ekta Funk Hematocrit (Bld) [Volume fraction] 38.8 % Normal 36.0-48.0 [facility] Comment on above: Performed By: #### C BC #### [facility] [address] [place] [address] Dr. Ekta Funk Hemoglobin (Bld) [Mass/Vol] 13.3 g/dL Normal 12.0-16.0 [facility] Comment on above: Performed By: #### C BC #### [facility] [address] [place] [address] Dr. Ekta Funk IG # 0.08 10e3/ul Critically high 0.00-0.03 [facility] Comment on above: Performed By: #### C BC #### [facility] [address] [address] [address] Ekta Funk IG % 0.8 % Critically high 0.0-0.5 [facility] Comment on above: Performed By: #### C BC #### [facility] [address] [place] [address] Dr. Ekta Funk LYMPH # 1.7 103/ul Normal 1.2-3.8 [facility] Comment on above: Performed By: #### C BC #### [facility] [address] [place] [address] Dr. Ekta Funk Lymphocytes/100 WBC (Bld) 17.3 % Critically low 20.5-60.0 [facility] Comment on above: Performed By: #### C BC #### [facility] [address] [place] [address] Dr. Ekta Funk MANUAL DIFF REQ NO Normal [facility] Comment on above: Performed By: #### C BC #### [facility] [address] [place] [address] Dr. Ekta Funk MCH (RBC) [Entitic mass] 32.1 pg Normal 26.7-34.0 [facility] Comment on above: Performed By: #### C BC #### [facility] [address] [place] [address] Dr. Ekta Funk MCHC (RBC) [Mass/Vol] 34.3 g/dL Normal 29.9-35.2 [facility] Comment on above: Performed By: #### C BC #### [facility] [address] [place] [address] Dr. Ekta Funk MCV (RBC) [Entitic vol] 93.7 fL Normal 81.0-99.0 [facility] Comment on above: Performed By: #### C BC #### [facility] [address] [place] [address] Dr. Ekta Funk MONO # 0.6 103/ul Normal 0.3-0.8 [facility] Comment on above: Performed By: #### C BC #### [facility] [address] [address] [address] Ekta Funk Monocytes/100 WBC (Bld) 6.4 % Normal 1.7-12.0 [facility] Comment on above: Performed By: #### C BC #### [facility] [address] [address] [address] Ekta Funk NEUT # 7.4 103/ul Critically high 1.4-6.5 [facility] Comment on above: Performed By: #### C BC #### [facility] [address] [place] [address] Dr. Ekta Funk Neutrophils/100 WBC (Bld) 74.4 % Normal 43.0-75.0 [facility] Comment on above: Performed By: #### C BC #### [facility] [address] [place] [address] Dr. Ekta Funk Platelet mean volume (Bld) [Entitic vol] 9.8 fL Normal 9.5-13.5 [facility] Comment on above: Performed By: #### C BC #### [facility] [address] [place] [address] Dr. Ekta Funk PLT 193 103/ul Normal 150-450 [facility] Comment on above: Performed By: #### C BC #### [facility] [address] [place] [address] Dr. Ekta Funk RBC 4.14 106/ul Critically low 4.20-5.40 [facility] Comment on above: Performed By: #### C BC #### [facility] [address] [place] [address] Dr. Ekta Funk WBC 9.9 103/ul Normal 4.0-11.0 [facility] Comment on above: Performed By: #### C BC #### [facility] [address] [place] [address] Dr. Ekta Funk PROF 14(COMP METB)on 023 Albumin [Mass/Vol] 3.2 g/dL Critically low 3.4-5.0 [facility] Comment on above: Performed By: #### I NSULIN #### [facility] [address] [place] [address] Dr. Ekta Funk Albumin/Globulin [Mass ratio] 0.8 {ratio} Normal [facility] Comment on above: Performed By: #### I NSULIN #### [facility] [address] [address] [address] Ekta Funk ALP [Catalytic activity/Vol] 82 U/L Normal 46-116 [facility] Comment on above: Performed By: #### I NSULIN #### [facility] [address] [place] [address] Dr. Ekta Funk ALT [Catalytic activity/Vol] 38 U/L Normal 14-59 [facility] Comment on above: Performed By: #### I NSULIN #### [facility] [address] [place] [address] Dr. Ekta Funk Anion gap [Moles/Vol] 19.1 mmol/L Normal [facility] Comment on above: Performed By: #### I NSULIN #### [facility] [address] [place] [address] Dr. Ekta Funk AST [Catalytic activity/Vol] 19 U/L Normal 15-37 [facility] Comment on above: Performed By: #### I NSULIN #### [facility] [address] [place] [address] Dr. Ekta Funk Bilirubin [Mass/Vol] 0.4 mg/dL Normal 0.2-1.0 [facility] Comment on above: Performed By: #### I NSULIN #### [facility] [address] [place] [address] Dr. Ekta Funk Calcium [Mass/Vol] 9.2 mg/dL Normal 8.5-10.1 [facility] Comment on above: Performed By: #### I NSULIN #### [facility] [address] [place] [address] Dr. Ekta Funk Chloride [Moles/Vol] 98 mmol/L Normal 98-107 [facility] Comment on above: Performed By: #### I NSULIN #### [facility] [address] [place], [place] [id number] Dr. Ekta Funk CO2 [Moles/Vol] 26.4 mmol/L Normal 21.0-32.0 [facility] Comment on above: Performed By: #### I NSULIN #### [facility] [address] [address] [address] Ekta Funk Creatinine [Mass/Vol] 2.20 mg/dL Critically high 0.55-1.02 [facility] Comment on above: Performed By: #### I NSULIN #### [facility] [address] [address] [address] Ekta Funk EGFR-AF CHINESE 26 mL/min/1.73m2 Critically low >=60 [facility] Comment on above: Performed By: #### I NSULIN #### [facility] [address] [place] [address] Dr. Ekta Funk EGFR-NON AF CHINESE 22 mL/min/1.73m2 Critically low >=60 [facility] Comment on above: Performed By: #### I NSULIN #### [facility] [address] [place] [address] Dr. Ekta Funk Globulin (S) [Mass/Vol] 3.8 g/dL Normal [facility] Comment on above: Performed By: #### I NSULIN #### [facility] [address] [place] [address] Dr. Ekta Funk Glucose [Mass/Vol] 142 mg/dL Critically high 74-106 T [facility] Comment on above: Performed By: #### I NSULIN #### [facility] [address] [address] [address] Ekta Funk Potassium [Moles/Vol] 4.5 mmol/L Normal 3.5-5.1 [facility] Comment on above: Performed By: #### I NSULIN #### [facility] [address] [address] [address] Ekta Funk Protein [Mass/Vol] 7.0 g/dL Normal 6.4-8.2 [facility] Comment on above: Performed By: #### I NSULIN #### [facility] [address] [address] [address] Ekta Funk Sodium [Moles/Vol] 139 mmol/L Normal 136-145 [facility] Comment on above: Performed By: #### I NSULIN #### [facility] [address] [address] [address] Ekta Funk Urea nitrogen [Mass/Vol] 57.0 mg/dL Critically high 7.0-18.0 [facility] Comment on above: Performed By: #### I NSULIN #### [facility] [address] [address] [address] Ekta Funk Urea nitrogen/Creatinine [Mass ratio] 25.9 mg/mg Normal [facility] Comment on above: Performed By: #### I NSULIN #### [facility] [address] [place] [address] Dr. Ekta Funk T3, TOTAL (TRIIODOTHYRONINE) on 10-21-2022 T3, TOTAL 63 ng/dL Critically low 71-180 [facility] Comment on above: Performed By: #### C MP #### [facility] [address] [place] [address] Dr. Ekta Funk XR ABD FLAT_UPon 10-21-2022 XR ABD FLAT_UP EXAMINATION: XR ABD FLAT_UP HISTORY: Generalized abdominal pain , shortness of breath COMPARISON: No relevant comparison available. FINDINGS: BOWEL GAS PATTERN: Non-obstructed. FREE AIR: None. CALCIFICATIONS: None significant. BONES: Mild left convex curvature lumbar spine. No appreciable fracture. OTHER: Negative. IMPRESSION: 1. Normal bowel gas pattern. No suspicious abdominal findings. Electronically authenticated by: DANIEL MARIE Date: 2022-10-21 11:42 Normal [facility] XR CHEST 2 Von 10-21-2022 XR CHEST [...] CHRISTIANO MORALES Date: 2022-10-21 11:23 Normal [facility] BNPon 10-20-2022 Natriuretic peptide B (Bld) [Mass/Vol] 2512.0 pg/mL Critically high <=900.0 [facility] Comment on above: Performed By: #### B 12FOLNENOAD, IRON #### [facility] [address] [place] [address] Dr. Ekta Funk CARDIAC BRITTANIE ADMITon 023 CK [Catalytic activity/Vol] 35 U/L Normal 26-192 [facility] Comment on above: Performed By: #### B CAROLYN LAUGHLIN, IRON #### [facility] [address] [place] [address] Dr. Ekta Funk CK.MB [Mass/Vol] 0.64 ng/mL Normal <=3.60 [facility] Comment on above: Performed By: #### B 12FOL VITAD, IRON #### [facility] [address] [place] [address] Dr. Ekta Funk HSTROP 28.1 pg/mL Normal 4.0-51.3 [facility] Comment on above: Result Comment: CUT- OFF POINTS HAVE BEEN ESTABLISHED BASED ON THE FOURTH UNIVERSAL DEFINITIONS OF MYOCARDIAL INFARCTION. THE UPPER REFERENCE LIMIT (URL) OF TROPONIN, DEFINED THE 99TH PERCENTILE OF cTnI DISTRIBUTION IN A REFERENCE POPULATION, HAS BEEN CONFIRMED THE DECISION THRESHOLD FOR HI DIAGNOSIS. Performed By: #### B 12FOL VITAD, IRON #### [facility] [address] [place] [address] Dr. Ekta Funk EVELYN 57 ng/mL Normal 9-82 [facility] Comment on above: Performed By: #### B 12FOL VITAD, IRON #### [facility] [address] [place] [address] Dr. Ekta Funk CBC AUTO DIFFon 10-20-2022 BASO # 0.0 103/ul Normal 0.0-0.1 [facility] Comment on above: Performed By: #### C BC #### [facility] [address] [address] [address] Ekta Funk Basophils/100 WBC (Bld) 0.2 % Normal 0.2-2.0 [facility] Comment on above: Performed By: #### C BC #### [facility] [address] [address] [address] Ekta Funk EO # 0.2 103/ul Normal 0.0-0.7 [facility] Comment on above: Performed By: #### C BC #### [facility] [address] [address] [address] Ekta Funk Eosinophils/100 WBC (Bld) 1.4 % Normal 0.9-7.0 [facility] Comment on above: Performed By: #### C BC #### [facility] [address] [place] [address] Dr. Ekta Funk Erythrocyte distribution width (RBC) [Ratio] 12.9 % Normal 11.0-15.0 [facility] Comment on above: Performed By: #### C BC #### [facility] [address] [place] [address] Dr. Ekta Funk Hematocrit (Bld) [Volume fraction] 34.7 % Critically low 36.0-48.0 [facility] Comment on above: Performed By: #### C BC #### [facility] [address] [place] [address] Dr. Ekta Funk Hemoglobin (Bld) [Mass/Vol] 11.8 g/dL Critically low 12.0-16.0 [facility] Comment on above: Performed By: #### C BC #### [facility] [address] [place] [address] Dr. Ekta Funk IG # 0.09 10e3/ul Critically high 0.00-0.03 [facility] Comment on above: Performed By: #### C BC #### [facility] [address] [address] [address] Ekta Funk IG % 0.8 % Critically high 0.0-0.5 [facility] Comment on above: Performed By: #### C BC #### [facility] [address] [address] [address] Ekta Funk LYMPH # 1.9 103/ul Normal 1.2-3.8 [facility] Comment on above: Performed By: #### C BC #### [facility] [address] [address] [address] Ekta Funk Lymphocytes/100 WBC (Bld) 16.1 % Critically low 20.5-60.0 [facility] Comment on above: Performed By: #### C BC #### [facility] [address] [address] [address] Ekta Funk MANUAL DIFF REQ NO Normal [facility] Comment on above: Performed By: #### C BC #### [facility] [address] [place] [address] Dr. Ekta Funk MCH (RBC) [Entitic mass] 32.6 pg Normal 26.7-34.0 [facility] Comment on above: Performed By: #### C BC #### [facility] [address] [place] [address] Dr. Ekta Funk MCHC (RBC) [Mass/Vol] 34.0 g/dL Normal 29.9-35.2 [facility] Comment on above: Performed By: #### C BC #### [facility] [address] [place] [address] Dr. Ekta Funk MCV (RBC) [Entitic vol] 95.9 fL Normal 81.0-99.0 [facility] Comment on above: Performed By: #### C BC #### [facility] [address] [place] [address] Dr. Ekta Funk MONO # 0.8 103/ul Normal 0.3-0.8 [facility] Comment on above: Performed By: #### C BC #### [facility] [address] [place] [address] Dr. Ekta Funk Monocytes/100 WBC (Bld) 7.0 % Normal 1.7-12.0 [facility] Comment on above: Performed By: #### C BC #### [facility] [address] [place], [place] [id number] Dr. Ekta Funk NEUT # 8.8 103/ul Critically high 1.4-6.5 [facility] Comment on above: Performed By: #### C BC #### [facility] [address] [place], [place] [id number] Dr. Ekta Funk Neutrophils/100 WBC (Bld) 74.5 % Normal 43.0-75.0 [facility] Comment on above: Performed By: #### C BC #### [facility] [address] [place] [address] Dr. Ekta Funk Platelet mean volume (Bld) [Entitic vol] 9.8 fL Normal 9.5-13.5 [facility] Comment on above: Performed By: #### C BC #### [facility] [address] [place] [address] Dr. Ekta Funk PLT 203 103/ul Normal 150-450 [facility] Comment on above: Performed By: #### C BC #### [facility] [address] [place] [address] Dr. Ekta Funk RBC 3.62 106/ul Critically low 4.20-5.40 [facility] Comment on above: Performed By: #### C BC #### [facility] [address] [place] [address] Dr. Ekta Funk WBC 11.8 103/ul Critically high 4.0-11.0 [facility] Comment on above: Performed By: #### C BC #### [facility] [address] [place] [address] Dr. Ekta Funk CULTURE URINEon 10-20-2022 CULTURE URINE Culture Observations : NO GROWTH. Normal [facility] Comment on above: Performed By: #### I NSULIN #### [facility] [address] [place] [address] Dr. Ekta Funk [facility]11 SARS-CoV-2 (COVID-19) RNA GANESH+probe Ql (Unsp spec) Not detected Normal NOT DETECTED [facility] Comment on above: Result Comment: When diagnostic [...] for this test is supported by the [employer]'s declaration that [...] By: #### B 12FOL, VITAD, IRON #### [facility] [address] [place] [address] Dr. Ekta Funk ECHOCARDIO M/2D COMPLETEon 0 10-20-2022 ECHOCARDIO M/2D COMPLETE Patient: SHEILA MAC Exam Date: 10/20/2022 : 1950 Gender:F Ordering : DR KRZYSZTOF HARP . Admission #: [id number] Family : Order #: [id number] CLICK HERE TO VIEW EXAM ECHOCARDIOGRAM REPORT [...] M.D. on 10/20/2022 at 14:57 Normal [facility] PROF 14(COMP METB)on 023 Albumin [Mass/Vol] 2.8 g/dL Critically low 3.4-5.0 [facility] Comment on above: Performed By: #### B 12FOL, VITAD, IRON #### [facility] [address] [address] [address] Ekta Funk Albumin/Globulin [Mass ratio] 0.7 {ratio} Normal [facility] Comment on above: Performed By: #### B 12FOL, VITAD, IRON #### [facility] [address] [place] [address] Dr. Ekta Funk ALP [Catalytic activity/Vol] 84 U/L Normal 46-116 [facility] Comment on above: Performed By: #### B 12FOL, VITAD, IRON #### [facility] [address] [address] [address] Ekta Funk ALT [Catalytic activity/Vol] 29 U/L Normal 14-59 [facility] Comment on above: Performed By: #### B 12FOL, VITAD, IRON #### [facility] [address] [address] [address] Ekta Funk Anion gap [Moles/Vol] 15.9 mmol/L Normal [facility] Comment on above: Performed By: #### B 12FOL, VITAD, IRON #### [facility] [address] [address] [address] Ekta Funk AST [Catalytic activity/Vol] 15 U/L Normal 15-37 [facility] Comment on above: Performed By: #### B 12FOL, VITAD, IRON #### [facility] [address] [address] [address] Ekta Funk Bilirubin [Mass/Vol] 0.3 mg/dL Normal 0.2-1.0 [facility] Comment on above: Performed By: #### B 12FOL, VITAD, IRON #### [facility] [address] [place] [address] Dr. Ekta Funk Calcium [Mass/Vol] 8.9 mg/dL Normal 8.5-10.1 [facility] Comment on above: Performed By: #### B 12FOL, VITAD, IRON #### [facility] [address] [place] [address] Dr. Ekta Funk Chloride [Moles/Vol] 103 mmol/L Normal 98-107 [facility] Comment on above: Performed By: #### B 12FOL, VITAD, IRON #### [facility] [address] [place] [address] Dr. Ekta Funk CO2 [Moles/Vol] 26.3 mmol/L Normal 21.0-32.0 [facility] Comment on above: Performed By: #### B 12FOL, VITAD, IRON #### [facility] [address] [place] [address] Dr. Ekta Funk Creatinine [Mass/Vol] 1.99 mg/dL Critically high 0.55-1.02 [facility] Comment on above: Performed By: #### B 12FOL, VITAD, IRON #### [facility] [address] [place] [address] Dr. Ekta Funk EGFR-AF CHINESE 30 mL/min/1.73m2 Critically low >=60 [facility] Comment on above: Performed By: #### B 12FOL, VITAD, IRON #### [facility] [address] [place] [address] Dr. Ekta Funk EGFR-NON AF CHINESE 24 mL/min/1.73m2 Critically low >=60 [facility] Comment on above: Performed By: #### B 12FOL, VITAD, IRON #### [facility] [address] [place] [address] Dr. Ekta Funk Globulin (S) [Mass/Vol] 4.1 g/dL Normal [facility] Comment on above: Performed By: #### B 12FOL, VITAD, IRON #### [facility] [address] [place] [address] Dr. Ekta Funk Glucose [Mass/Vol] 115 mg/dL Critically high 74-106 [facility] Comment on above: Performed By: #### B 12FOL, VITAD, IRON #### [facility] [address] [place] [address] Dr. Ekta Funk Potassium [Moles/Vol] 5.2 mmol/L Critically high 3.5-5.1 [facility] Comment on above: Performed By: #### B 12FOL, VITAD, IRON #### [facility] [address] [place] [address] Dr. Ekta Funk Protein [Mass/Vol] 6.9 g/dL Normal 6.4-8.2 [facility] Comment on above: Performed By: #### B 12FOL, VITAD, IRON #### [facility] [address] [place] [address] Dr. Ekta Funk Sodium [Moles/Vol] 140 mmol/L Normal 136-145 [facility] Comment on above: Performed By: #### B 12FOL, VITAD, IRON #### [facility] [address] [place] [address] Dr. Ekta Funk Urea nitrogen [Mass/Vol] 45.0 mg/dL Critically high 7.0-18.0 [facility] Comment on above: Performed By: #### B 12FOL, VITAD, IRON #### [facility] [address] [place] [address] Dr. Ekta Funk Urea nitrogen/Creatinine [Mass ratio] 22.6 mg/mg Normal [facility] Comment on above: Performed By: #### B 12FOL, VITAD, IRON #### [facility] [address] [place] [address] Dr. Ekta Funk T4on 10-20-2022 T4 [Mass/Vol] 6.10 ug/dL Normal 4.80-13.90 [facility] Comment on above: Performed By: #### B 12FOL, VITAD, IRON #### [facility] [address] [place] [address] Dr. Ekta Funk TSHon 10-20-2022 TSH 1.336 uIU/mL Normal 0.358-3.740 [facility] Comment on above: Performed By: #### B 12FOL, VITAD, IRON #### [facility] [address] [place] [address] Dr. Ekta Funk UA RANDOM W/MICROSCOPICon BACTERIA TRACE Abnormal NONE SEEN [facility] Comment on above: Performed By: #### B 12FOL, VITAD, IRON #### [facility] [address] [place] [address] Dr. Ekta Funk Bilirubin Ql (U) Negative Normal NEGATIVE [facility] Comment on above: Performed By: #### B 12FOL, VITAD, IRON #### [facility] [address] [place] [address] Dr. Ekta Funk CAST NONE SEEN Normal NONE SEEN [facility] Comment on above: Performed By: #### B 12FOL, VITAD, IRON #### [facility] [address] [place] [address] Dr. Ekta Funk Clarity (U) CLEAR Normal CLEAR [facility] Comment on above: Performed By: #### B 12FOL, VITAD, IRON #### [facility] [address] [place] [address] Dr. Ekta Funk Color (U) LT. YELLOW Normal YELLOW [facility] Comment on above: Performed By: #### B 12FOL, VITAD, IRON #### [facility] [address] [place] [address] Dr. Ekta Funk Crystals LM Nom (Urine sed) NONE SEEN Normal NONE SEEN [facility] Comment on above: Performed By: #### B 12FOL, VITAD, IRON #### [facility] [address] [place] [address] Dr. Ekta Funk Epithelial cells LM Ql (Urine sed) RARE Normal NONE SEEN /RARE [facility] Comment on above: Performed By: #### B 12FOL, VITAD, IRON #### [facility] [address] [place] [address] Dr. Ekta Funk Glucose Ql (U) Negative Normal NEGATIVE [facility] Comment on above: Performed By: #### B 12FOL, VITAD, IRON #### [facility] [address] [place] [address] Dr. Ekta Funk Hemoglobin Ql (U) Negative Normal NEGATIVE [facility] Comment on above: Performed By: #### B 12FOL, VITAD, IRON #### [facility] [address] [place] [address] Dr. Ekta Funk Ketones Ql (U) Negative Normal NEGATIVE [facility] Comment on above: Performed By: #### B 12FOL, VITAD, IRON #### [facility] [address] [place] [address] Dr. Ekta Funk LEUKOCYTES Negative Normal NEGATIVE [facility] Comment on above: Performed By: #### B 12FOL, VITAD, IRON #### [facility] [address] [place] [address] Dr. Ekta Funk MUCOUS NONE SEEN Normal NONE SEEN [facility] Comment on above: Performed By: #### B 12FOL, VITAD, IRON #### [facility] [address] [place] [address] Dr. Ekta Funk Nitrite Ql (U) Negative Normal NEGATIVE [facility] Comment on above: Performed By: #### B 12FOL, VITAD, IRON #### [facility] [address] [place] [address] Dr. Ekta Funk pH (U) 6.0 [pH] Normal 5-9 [facility] Comment on above: Performed By: #### B 12FOL, VITAD, IRON #### [facility] [address] [place] [address] Dr. Ekta Funk RBC 0-2 Normal 0-2 [facility] Comment on above: Performed By: #### B 12FOL, VITAD, IRON #### [facility] [address] [place] [address] Dr. Ekta Funk SPEC GRAVITY <=1.005 Abnormal 1.005-<=1.025 [facility] Comment on above: Performed By: #### B 12FOL, VITAD, IRON #### [facility] [address] [place] [address] Dr. Ekta Funk UA PROTEIN Negative Normal NEGATIVE/ TRACE The [facility] Comment on above: Performed By: #### B 12FOL, VITAD, IRON #### [facility] [address] [place] [address] Dr. Ekta Funk Urobilinogen Qn (U) 0.2 {Ivan'U}/dL Normal 0.2 - 1. 0 [facility] Comment on above: Performed By: #### B 12FOL, VITAD, IRON #### [facility] [address] [place] [address] Dr. Ekta Funk WBC NONE SEEN Normal NONE SEEN [facility] Comment on above: Performed By: #### B 12FOL, VITAD, IRON #### [facility] [address] [place] [address] Dr. Ekta Funk BNPon 10-19-2022 Natriuretic peptide B (Bld) [Mass/Vol] 1355.0 pg/mL Critically high <=900.0 [facility] Comment on above: Performed By: #### B 12FOL, VITAD, IRON #### [facility] [address] [place] [address] Dr. Ekta Funk INSULINon 10-19-2022 Insulin 12.4 uIU/mL Normal 2.6-24.9 [facility] Comment on above: Performed By: #### I NSULIN #### [facility] [address] [place] [address] Dr. Ekta Funk OCC BLD IMMUNO SCREENon OCCULT BLOOD Positive Abnormal NEGATIVE [facility] Comment on above: Performed By: #### B 12FOL, VITAD, IRON #### [facility] [address] [place] [address] Dr. Ekta Funk PROF CHEM 8 (BAS METB)on Anion gap [Moles/Vol] 15.8 mmol/L Normal [facility] Comment on above: Performed By: #### B 12FOL, VITAD, IRON #### [facility] [address] [address] [address] Ekta Funk Calcium [Mass/Vol] 8.8 mg/dL Normal 8.5-10.1 [facility] Comment on above: Performed By: #### B 12FOL, VITAD, IRON #### [facility] [address] [address] [address] Ekta Funk Chloride [Moles/Vol] 107 mmol/L Normal 98-107 [facility] Comment on above: Performed By: #### B 12FOL, VITAD, IRON #### [facility] [address] [place] [address] Dr. Ekta Funk CO2 [Moles/Vol] 21.5 mmol/L Normal 21.0-32.0 [facility] Comment on above: Performed By: #### B 12FOL, VITAD, IRON #### [facility] [address] [place] [address] Dr. Ekta Funk Creatinine [Mass/Vol] 1.62 mg/dL Critically high 0.55-1.02 [facility] Comment on above: Performed By: #### B 12FOL, VITAD, IRON #### [facility] [address] [place] [address] Dr. Ekta Funk EGFR-AF CHINESE 38 mL/min/1.73m2 Critically low >=60 [facility] Comment on above: Performed By: #### B 12FOL, VITAD, IRON #### [facility] [address] [place] [address] Dr. Ekta Funk EGFR-NON AF CHINESE 31 mL/min/1.73m2 Critically low >=60 [facility] Comment on above: Performed By: #### B 12FOL, VITAD, IRON #### [facility] [address] [place] [address] Dr. Ekta Funk Glucose [Mass/Vol] 134 mg/dL Critically high 74-106 [facility] Comment on above: Performed By: #### B 12FOL, VITAD, IRON #### [facility] [address] [place] [address] Dr. Ekta Funk Potassium [Moles/Vol] 5.3 mmol/L Critically high 3.5-5.1 [facility] Comment on above: Performed By: #### B 12FOL, VITAD, IRON #### [facility] [address] [place] [address] Dr. Ekta Funk Sodium [Moles/Vol] 139 mmol/L Normal 136-145 [facility] Comment on above: Performed By: #### B 12FOL, VITAD, IRON #### [facility] [address] [place] [address] Dr. Ekta Funk Urea nitrogen [Mass/Vol] 37.0 mg/dL Critically high 7.0-18.0 [facility] Comment on above: Performed By: #### B 12FOL, VITAD, IRON #### [facility] [address] [place] [address] Dr. Ekta Funk Urea nitrogen/Creatinine [Mass ratio] 22.8 mg/mg Normal [facility] Comment on above: Performed By: #### B 12FOL, VITAD, IRON #### [facility] [address] [place] [address] Dr. Ekta Funk TROPONIN, HIGH SENSITIVITYon 10-19-2022 HSTROP 53.2 pg/mL Critically high 4.0-51.3 [facility] Comment on above: Result Comment: CUT- OFF POINTS HAVE BEEN ESTABLISHED BASED ON THE FOURTH UNIVERSAL DEFINITIONS OF MYOCARDIAL INFARCTION. THE UPPER REFERENCE LIMIT (URL) OF TROPONIN, DEFINED THE 99TH PERCENTILE OF cTnI DISTRIBUTION IN A REFERENCE POPULATION, HAS BEEN CONFIRMED THE DECISION THRESHOLD FOR HI DIAGNOSIS. Performed By: #### B 12FOL, VITAD, IRON #### [facility] [address] [place] [address] Dr. Ekta Funk BNPon 10-18-2022 Natriuretic peptide B (Bld) [Mass/Vol] 1386.0 pg/mL Critically high <=900.0 [facility] Comment on above: Performed By: #### C VDTBH #### [facility] [address] [address] [address] Ekta Funk CARDIAC BRITTANIE ADMITon 023 CK [Catalytic activity/Vol] 34 U/L Normal 26-192 [facility] Comment on above: Performed By: #### C VDTBH #### [facility] [address] [place] [address] Dr. Ekta Funk CK.MB [Mass/Vol] 1.43 ng/mL Normal <=3.60 [facility] Comment on above: Performed By: #### C VDTBH #### [facility] [address] [place] [address] Dr. Ekta Funk HSTROP 74.1 pg/mL Critically high 4.0-51.3 [facility] Comment on above: Result Comment: CUT- OFF POINTS HAVE BEEN ESTABLISHED BASED ON THE FOURTH UNIVERSAL DEFINITIONS OF MYOCARDIAL INFARCTION. THE UPPER REFERENCE LIMIT (URL) OF TROPONIN, DEFINED THE 99TH PERCENTILE OF cTnI DISTRIBUTION IN A REFERENCE POPULATION, HAS BEEN CONFIRMED THE DECISION THRESHOLD FOR HI DIAGNOSIS. Performed By: #### C VDTBH #### [facility] [address] [place] [address] Dr. Ekta Funk EVELYN 52 ng/mL Normal 9-82 [facility] Comment on above: Performed By: #### C VDTBH #### [facility] [address] [place] [address] Dr. Ekta Funk CBC AUTO DIFFon 10-18-2022 BASO # 0.0 103/ul Normal 0.0-0.1 [facility] Comment on above: Performed By: #### C BC #### [facility] [address] [place] [address] Dr. Ekta Funk Basophils/100 WBC (Bld) 0.3 % Normal 0.2-2.0 [facility] Comment on above: Performed By: #### C BC #### [facility] [address] [place] [address] Dr. Ekta Funk EO # 0.1 103/ul Normal 0.0-0.7 [facility] Comment on above: Performed By: #### C BC #### [facility] [address] [place] [address] Dr. Ekta Funk Eosinophils/100 WBC (Bld) 0.9 % Normal 0.9-7.0 [facility] Comment on above: Performed By: #### C BC #### [facility] [address] [place] [address] Dr. Ekta Funk Erythrocyte distribution width (RBC) [Ratio] 13.2 % Normal 11.0-15.0 [facility] Comment on above: Performed By: #### C BC #### [facility] [address] [place] [address] Dr. Ekta Funk Hematocrit (Bld) [Volume fraction] 38.9 % Normal 36.0-48.0 [facility] Comment on above: Performed By: #### C BC #### [facility] [address] [place] [address] Dr. Ekta Funk Hemoglobin (Bld) [Mass/Vol] 12.4 g/dL Normal 12.0-16.0 [facility] Comment on above: Performed By: #### C BC #### [facility] [address] [place] [address] Dr. Ekta Funk IG # 0.08 10e3/ul Critically high 0.00-0.03 [facility] Comment on above: Performed By: #### C BC #### [facility] [address] [place] [address] Dr. Ekta Funk IG % 0.5 % Normal 0.0-0.5 [facility] Comment on above: Performed By: #### C BC #### [facility] [address] [place] [address] Dr. Ekta Funk LYMPH # 1.4 103/ul Normal 1.2-3.8 [facility] Comment on above: Performed By: #### C BC #### [facility] [address] [place] [address] Dr. Ekta Funk Lymphocytes/100 WBC (Bld) 9.6 % Critically low 20.5-60.0 [facility] Comment on above: Performed By: #### C BC #### [facility] [address] [address] [address] Ekta Funk MANUAL DIFF REQ NO Normal [facility] Comment on above: Performed By: #### C BC #### [facility] [address] [address] [address] Ekta Funk MCH (RBC) [Entitic mass] 32.3 pg Normal 26.7-34.0 [facility] Comment on above: Performed By: #### C BC #### [facility] [address] [address] [address] Ekta Funk MCHC (RBC) [Mass/Vol] 31.9 g/dL Normal 29.9-35.2 [facility] Comment on above: Performed By: #### C BC #### [facility] [address] [place] [address] Dr. Ekta Funk MCV (RBC) [Entitic vol] 101.3 fL Critically high 81.0-99.0 [facility] Comment on above: Performed By: #### C BC #### [facility] [address] [place] [address] Dr. Ekta Funk MONO # 0.9 103/ul Critically high 0.3-0.8 [facility] Comment on above: Performed By: #### C BC #### [facility] [address] [place] [address] Dr. Ekta Funk Monocytes/100 WBC (Bld) 6.3 % Normal 1.7-12.0 [facility] Comment on above: Performed By: #### C BC #### [facility] [address] [place] [address] Dr. Ekta Funk NEUT # 12.0 103/ul Critically high 1.4-6.5 [facility] Comment on above: Performed By: #### C BC #### [facility] [address] [place] [address] Dr. Ekta Funk Neutrophils/100 WBC (Bld) 82.4 % Critically high 43.0-75.0 [facility] Comment on above: Performed By: #### C BC #### [facility] [address] [address] [address] Ekta Funk Platelet mean volume (Bld) [Entitic vol] 9.7 fL Normal 9.5-13.5 [facility] Comment on above: Performed By: #### C BC #### [facility] [address] [address] [address] Ekta Funk PLT 176 103/ul Normal 150-450 [facility] Comment on above: Performed By: #### C BC #### [facility] [address] [address] [address] Ekta Funk RBC 3.84 106/ul Critically low 4.20-5.40 [facility] Comment on above: Performed By: #### C BC #### [facility] [address] [address] [address] Ekta Funk WBC 14.6 103/ul Critically high 4.0-11.0 [facility] Comment on above: Performed By: #### C BC #### [facility] [address] [address] [address] Ekta Funk FREE THYROXINE INDEX T7on FTI 2.34 Normal 1.30-4.50 [facility] Comment on above: Performed By: #### C VDTBH #### [facility] [address] [place] [address] Dr. Ekta Funk T3U 36.0 % Normal 30.0-39.0 [facility] Comment on above: Performed By: #### C VDTBH #### [facility] [address] [address] [address] Ekta Funk T4 [Mass/Vol] 6.50 ug/dL Normal 4.80-13.90 [facility] Comment on above: Performed By: #### C VDTBH #### [facility] [address] [place] [address] Dr. Ekta Funk GLYCOHEMOGLOBIN A1Con 2022 ADA RECOMMENDATION SEE BELOW Normal [facility] Comment on above: Result Comment: ADA RECOMMENDED LIMIT 4.0 - 6.0 ADA THERAPEUTIC TARGET < 7.0 ACTION SUGGESTED > 7.0 Performed By: #### B 12FOL, VITAD, IRON #### [facility] [address] [address] [address] Ekta Funk Glucose [Mass/Vol] 140 mg/dL Normal [facility] Comment on above: Performed By: #### B 12FOL, VITAD, IRON #### [facility] [address] [address] [address] Ekta Funk HbA1c (Bld) [Mass fraction] 6.5 % Critically high 4.5-6.2 [facility] Comment on above: Performed By: #### B 12FOL, VITAD, IRON #### [facility] [address] [address] [address] Ekta Funk IRONon 10-18-2022 Iron [Mass/Vol] 62.0 ug/dL Normal 50.0-170.0 [facility] Comment on above: Performed By: #### B 12FOL, VITAD, IRON #### [facility] [address] [address] [address] Ekta Funk LIPID PROFILEon 10-18-2022 CHOL-HDL RATIO NORM SEE BELOW Normal [facility] Comment on above: Result Comment: 3.3 - 4.4 LOW RISK 4.4 - 7.1 AVERAGE RISK 7.1 - 11.0 MODERATE RISK >11.0 HIGH RISK Performed By: #### C VDTBH #### [facility] [address] [address] [address] Ekta Funk Cholesterol [Mass/Vol] 242 mg/dL Critically high <=200 [facility] Comment on above: Performed By: #### C VDTBH #### [facility] [address] [address] [address] Ekta Funk Cholesterol in HDL [Mass/Vol] 74 mg/dL Critically high 40-60 [facility] Comment on above: Performed By: #### C VDTBH #### [facility] [address] [address] [address] Ekta Funk Cholesterol in LDL [Mass/Vol] 139.4 mg/dL Normal [facility] Comment on above: Performed By: #### C VDTBH #### [facility] [address] [address] [address] Ekta Funk Cholesterol.total/Ch olesterol in HDL [Mass ratio] 3.3 {ratio} Normal [facility] Comment on above: Performed By: #### C VDTBH #### [facility] [address] [address] [address] Ekta Funk HDL NORMAL > or = 60 mg/dl - LO W CARDIOVASCULAR RISK <40 mg/dl - HIGH CARDIOVASCULAR RISK Normal [facility] Comment on above: Performed By: #### C VDTBH #### [facility] [address] [address] [address] Ekta Funk LDL CALC NORMAL SEE BELOW Normal [facility] Comment on above: Result Comment: <100 mg/dl OPTIMAL 100 - 129 mg/dl NEAR OR ABOVE OPTIMAL 130 - 159 mg/dl BORDERLINE HIGH 160 - 189 mg/dl HIGH >190 mg/dl VERY HIGH Performed By: #### C VDTBH #### [facility] Laboratory [address] [place] [address] Dr. Ekta Funk Triglyceride [Mass/Vol] 143 mg/dL Normal <=150 [facility] Comment on above: Performed By: #### C VDTBH #### [facility] [address] [place] [address] Dr. Ekta Funk VLDL CALC 28.6 mg/dL Normal [facility] Comment on above: Performed By: #### C VDTBH #### [facility] [address] [place] [address] Dr. Ekta Funk PROF 14(COMP METB)on 023 Albumin [Mass/Vol] 2.8 g/dL Critically low 3.4-5.0 [facility] Comment on above: Performed By: #### C VDTBH #### [facility] [address] [place] [address] Dr. Ekta Funk Albumin/Globulin [Mass ratio] 0.7 {ratio} Normal [facility] Comment on above: Performed By: #### C VDTBH #### [facility] [address] [address] [address] Ekta Funk ALP [Catalytic activity/Vol] 90 U/L Normal 46-116 [facility] Comment on above: Performed By: #### C VDTBH #### [facility] [address] [place] [address] Dr. Ekta Funk ALT [Catalytic activity/Vol] 26 U/L Normal 14-59 [facility] Comment on above: Performed By: #### C VDTBH #### [facility] [address] [address] [address] Ekta Funk Anion gap [Moles/Vol] 14.5 mmol/L Normal [facility] Comment on above: Performed By: #### C VDTBH #### [facility] [address] [place] [address] Dr. Ekta Funk AST [Catalytic activity/Vol] 14 U/L Critically low 15-37 [facility] Comment on above: Performed By: #### C VDTBH #### [facility] [address] [place] [address] Dr. Ekta Funk Bilirubin [Mass/Vol] 0.4 mg/dL Normal 0.2-1.0 [facility] Comment on above: Performed By: #### C VDTBH #### [facility] [address] [place] [address] Dr. Ekta Funk Calcium [Mass/Vol] 8.9 mg/dL Normal 8.5-10.1 [facility] Comment on above: Performed By: #### C VDTBH #### [facility] [address] [place] [address] Dr. Ekta Funk Chloride [Moles/Vol] 106 mmol/L Normal 98-107 [facility] Comment on above: Performed By: #### C VDTBH #### [facility] [address] [place] [address] Dr. Ekta Funk CO2 [Moles/Vol] 23.5 mmol/L Normal 21.0-32.0 [facility] Comment on above: Performed By: #### C VDTBH #### [facility] [address] [address] [address] Ekta Funk Creatinine [Mass/Vol] 1.70 mg/dL Critically high 0.55-1.02 [facility] Comment on above: Performed By: #### C VDTBH #### [facility] [address] [address] [address] Ekta Funk EGFR-AF CHINESE 36 mL/min/1.73m2 Critically low >=60 [facility] Comment on above: Performed By: #### C VDTBH #### [facility] [address] [address] [address] Ekta Funk EGFR-NON AF CHINESE 29 mL/min/1.73m2 Critically low >=60 [facility] Comment on above: Performed By: #### C VDTBH #### [facility] [address] [address] [address] Ekta Funk Globulin (S) [Mass/Vol] 4.0 g/dL Normal [facility] Comment on above: Performed By: #### C VDTBH #### [facility] [address] [address] [address] Ekta Funk Glucose [Mass/Vol] 99 mg/dL Normal 74-106 [facility] Comment on above: Performed By: #### C VDTBH #### [facility] [address] [address] [address] Ekta Funk Potassium [Moles/Vol] 5.0 mmol/L Normal 3.5-5.1 [facility] Comment on above: Performed By: #### C VDTBH #### [facility] [address] [address] [address] Ekta Funk Protein [Mass/Vol] 6.8 g/dL Normal 6.4-8.2 [facility] Comment on above: Performed By: #### C VDTBH #### [facility] [address] [address] [address] Ekta Funk Sodium [Moles/Vol] 139 mmol/L Normal 136-145 [facility] Comment on above: Performed By: #### C VDTBH #### [facility] [address] [address] [address] Ekta Funk Urea nitrogen [Mass/Vol] 36.0 mg/dL Critically high 7.0-18.0 [facility] Comment on above: Performed By: #### C VDTB #### [facility] [address] [place] [address] Dr. Ekta Funk Urea nitrogen/Creatinine [Mass ratio] 21.2 mg/mg Normal [facility] Comment on above: Performed By: #### C VDTBH #### [facility] [address] [place] [address] Dr. Ekta Funk TSHon 10-18-2022 TSH 0.910 uIU/mL Normal 0.358-3.740 [facility] Comment on above: Performed By: #### C VDTB #### [facility] [address] [place] [address] Dr. Ekta Funk Covid-19 PCR ([facility])on 09-10 SARS-CoV-2 (COVID-19) RNA GANESH+probe Ql (Unsp spec) Detected Abnormal NOT DETECTED [facility] Comment on above: Result Comment: This test is not yet approved or cleared by the [place] FDA. When there are no FDA-approved or cleared tests available, and other criteria are met, FDA can make tests available under an emergency access mechanism called an Emergency Use Authorization (EUA). The EUA for this test is supported by the [employer] and Human Service's declaration that [...] be used). Performed By: #### C #### [facility] [address] [place] [address] Dr. Ekta Funk INFLUENZA A AND B AGon 09-25 INFLUANEGH SEE BELOW Normal [facility] Comment on above: Result Comment: Nega tive for Flu A protein angiten. Infection due to Flu A cannot be ruled out. Flu A angiten in the sample may be below the detection limit of the test. Performed By: #### B 12FOL, VITAD, IRON #### [facility] [address] [address] [address] Ekta Funk INFLUEG SEE BELOW Normal [facility] Comment on above: Result Comment: Nega tive for Flu B protein antigen. Infection due to Flu B cannot be ruled out. Flu B antigen in the sample may be below the detection limit of the test. Performed By: #### B 12FOL, VITAD, IRON #### [facility] [address] [address] [address] Ekta Funk INFLUENZA A AG Negative Normal NEGATIVE SEE COMMENT [facility] Comment on above: Performed By: #### B 12FOL, VITAD, IRON #### [facility] [address] [address] [address] Ekta Funk INFLUENZA B AG Negative Normal NEGATIVE SEE COMMENT [facility] Comment on above: Performed By: #### B 12FOL, VITAD, IRON #### [facility] [address] [address] [address] Ekta Funk US CAROTID ART BILon 05-26- 022 CAROTID ART ANGELIQUE EXAMINATION: US CAROTID ART [...] by: GODWIN BECK Date: 2022-05-26 16:06 Normal [facility] MRI BRAIN WO CONon 2 MRI BRAIN [...] changed since prior study. Electronically authenticated by: DANIEL MARIE Date: 2022-05-25 10:45 Normal [facility] ECHOCARDIO M/2D COMPLETEon 0 05-24-2022 ECHOCARDIO M/2D COMPLETE Patient: SHEILA MAC Exam Date: 05/24/2022 : 1950 Gender:F Ordering : DR KRZYSZTOF HARP . Admission #: [id number] Family : Order #: [id number] CLICK HERE TO VIEW EXAM ECHOCARDIOGRAM REPORT [...] M.D. on 05/24/2022 at 14:45 Normal [facility] BASIC METABOLIC PANELon - Calcium mass conc 9.4 mg/dL Normal 8.6-10.3 [facility] Comment on above: Order Comment: No: D o not add to previous draw Performed By: #### 0 0071 #### [facility] [address] [place] [address], [place] Chloride molar conc 108 mmol/L High 98-107 [facility] Comment on above: Order Comment: No: D o not add to previous draw Performed By: #### 0 0071 #### [facility] [address] [place] [address], [place] CO2 molar conc 22 mmol/L Normal 21-31 [facility] Comment on above: Order Comment: No: D o not add to previous draw Performed By: #### 0 0071 #### [facility] [address] [place] [address], [place] Creatinine mass conc 1.18 mg/dL Normal 0.60-1.20 [facility] Comment on above: Order Comment: No: D o not add to previous draw Performed By: #### 0 0071 #### [facility] [address] [place] [address], [place] GFR/1.73 sq M predicted among blacks MDRD vol rate/area (S/P/Bld) 55 ml/min/1.73sq m Abnormal >60 [facility] Comment on above: Order Comment: No: D o not add to previous draw Performed By: #### 0 0071 #### [facility] [address] [place] [address], [place] GFR/1.73 sq M predicted among non-blacks MDRD vol rate/area (S/P/Bld) 45 ml/min/1.73sq m Abnormal >60 [facility] Comment on above: Order Comment: No: D o not add to previous draw Performed By: #### 0 0071 #### [facility] [address] [place] [address], [facility] Glucose mass conc 166 mg/dL High 70-100 [facility] Comment on above: Order Comment: No: D o not add to previous draw Performed By: #### 0 0071 #### [facility] [address] [place] [address], [facility] Potassium molar conc 4.1 mmol/L Normal 3.5-5.1 [facility] Comment on above: Order Comment: No: D o not add to previous draw Performed By: #### 0 0071 #### [facility] [address] [place] [address], [facility] Sodium molar conc 140 mmol/L Normal 136-145 [facility] Comment on above: Order Comment: No: D o not add to previous draw Performed By: #### 0 0071 #### [facility] [address] [place] [address], [facility] Urea nitrogen mass conc 21 mg/dL Normal 7-25 [facility] Comment on above: Order Comment: No: D o not add to previous draw Performed By: #### 0 0071 #### [facility] [address] [place] [id number], [facility] CBC COMPLETE BLOOD COUNTon 0 - Erythrocyte distribution width Ratio (RBC) 12.9 % Normal 11.5-15.0 [facility] Comment on above: Order Comment: No: D o not add to previous draw Performed By: #### 5 [id number] #### [facility] [address] [place] [address], [facility] Hematocrit Volume Fraction (Bld) 36.7 % Normal 36.0-45.0 [facility] Comment on above: Order Comment: No: D o not add to previous draw Performed By: #### 5 [id number] #### [facility] [address] Hemoglobin mass conc (Bld) 12.4 g/dL Normal 12.0-15.0 [facility] Comment on above: Order Comment: No: D o not add to previous draw Performed By: #### 5 [id number] #### [facility] [address] [place] [address], [facility] MCH Entitic mass (RBC) 31.2 pg Normal 27.0-33.0 [facility] Comment on above: Order Comment: No: D o not add to previous draw Performed By: #### 5 [id number] #### [facility] [address] [place] [address], [facility] MCHC mass conc (RBC) 33.8 g/dL Normal 32.0-35.0 [facility] Comment on above: Order Comment: No: D o not add to previous draw Performed By: #### 5 [id number] #### [facility] [address] MCV Entitic volume (RBC) 92.4 fL Normal 82.0-98.0 [facility] Comment on above: Order Comment: No: D o not add to previous draw Performed By: #### 5 [id number] #### [facility] [address] [place] [address], [facility] Nucleated RBC/100 WBC Ratio (Bld) 0 % Normal 0-0 [facility] Comment on above: Order Comment: No: D o not add to previous draw Performed By: #### 5 [id number] #### [facility] [address] [place] [address], [facility] PLAT CNT 227 10*3/uL Normal 150-400 [facility] Comment on above: Order Comment: No: D o not add to previous draw Performed By: #### 5 [id number] #### [facility] [address] [place] [id number], [facility] RBC #/vol (Bld) 3.97 10*6/uL Normal 3.80-5.00 [facility] Comment on above: Order Comment: No: D o not add to previous draw Performed By: #### 5 [id number] #### [facility] [address] WBC #/vol (Bld) 5.55 10*3/uL Normal 4.00-10.60 [facility] Comment on above: Order Comment: No: D o not add to previous draw Performed By: #### 5 [id number] #### [facility] [address] Cardiovascular Lab Reporton 11-20-2018 Cardiovascular Lab Report [facility] Patient Name: [facility] Rahel Sosa MR #: [id number] Department of Physician: Bong Gaspar M.D. Division of Service Date: 11/20/2018 Cardiology Birthdate: 1950 Adult Cardiovascular Room #: 3AB [id number] [place] [address] Cardiovascular Laboratory Report INDICATION: The patient is a 68-year-old woman who was evaluated in Cardiology Clinic because of new onset symptoms of shortness of breath on mild exertion. Her stress test showed evidence of adryg-kl-iipglxgc area of inferoapical ischemia; because of that, she was referred for cardiac catheterization. PROCEDURES: 1. Right heart catheterization. 2. Bilateral selective coronary angiography. 3. Limited right femoral angiography. METHOD: Procedure was explained patient with risks and benefits. She signed informed consent. She was brought to section laborer in a fasting state. The right groin area was prepped and draped in usual fashion. Using micropuncture technique, the right common femoral artery was accessed. The inner cannula was advanced. Limited femoral angiography was performed followed by upsizing to a 6-Egyptian x 11 cm sheath. Access was also obtained using the same technique in the right common femoral vein and a 6-Egyptian x 11 cm sheath was placed. A 6-Egyptian Michel catheter was used for right heart catheterization with measurement of pressures and calculation of cardiac output using the estimated Ivory method. Michel catheter was removed. Bilateral selective coronary angiography was then performed using 6-Egyptian JL4 and JR4 diagnostic catheters. Catheters were [...] A Bong Gaspar M.D. Date Dict: 11/20/2018/09:00 Blane/Bong Gaspar M.D. Date Trans: 11/20/2018 09:31 Blane/alvina [id number] cc: Krzysztof Harp M.D. [address] [place] [address] Normal [facility] BASIC METABOLIC PANELon 11-08 Calcium mass conc 9.5 mg/dL Normal 8.6-10.3 [facility] Comment on above: Order Comment: No: D o not add to previous draw Performed By: #### 0 0071 #### [facility] [address] [place] [address], [place] Chloride molar conc 105 mmol/L Normal 98-107 [facility] Comment on above: Order Comment: No: D o not add to previous draw Performed By: #### 0 0071 #### [facility] [address] [place] [address], [place] CO2 molar conc 24 mmol/L Normal 21-31 [facility] Comment on above: Order Comment: No: D o not add to previous draw Performed By: #### 0 0071 #### [facility] [address] [place] [address], [place] Creatinine mass conc 1.42 mg/dL High 0.60-1.20 [facility] Comment on above: Order Comment: No: D o not add to previous draw Performed By: #### 0 0071 #### [facility] [address] [place] [address], [place] GFR/1.73 sq M predicted among blacks MDRD vol rate/area (S/P/Bld) 45 ml/min/1.73sq m Abnormal >60 [facility] Comment on above: Order Comment: No: D o not add to previous draw Performed By: #### 0 0071 #### [facility] [address] [place] [address], [place] GFR/1.73 sq M predicted among non-blacks MDRD vol rate/area (S/P/Bld) 36 ml/min/1.73sq m Abnormal >60 [facility] Comment on above: Order Comment: No: D o not add to previous draw Performed By: #### 0 0071 #### [facility] [address] [place] [address], [place] Glucose mass conc 86 mg/dL Normal 70-100 [facility] Comment on above: Order Comment: No: D o not add to previous draw Performed By: #### 0 0071 #### [facility] [address] [place] [address], [facility] Potassium molar conc 4.2 mmol/L Normal 3.5-5.1 [facility] Comment on above: Order Comment: No: D o not add to previous draw Performed By: #### 0 0071 #### [facility] [address] [place] [address], [facility] Sodium molar conc 138 mmol/L Normal 136-145 [facility] Comment on above: Order Comment: No: D o not add to previous draw Performed By: #### 0 0071 #### [facility] [address] [place] [address], [facility] Urea nitrogen mass conc 19 mg/dL Normal 7-25 [facility] Comment on above: Order Comment: No: D o not add to previous draw Performed By: #### 0 0071 #### [facility] [address] [place] [address], [facility] CBC COMPLETE BLOOD COUNTon 0 - Erythrocyte distribution width Ratio (RBC) 13.0 % Normal 11.5-15.0 [facility] Comment on above: Order Comment: No: D o not add to previous draw Performed By: #### 5 [id number] #### [facility] [address] [place] [address], [facility] Hematocrit Volume Fraction (Bld) 38.3 % Normal 36.0-45.0 [facility] Comment on above: Order Comment: No: D o not add to previous draw Performed By: #### 5 [id number] #### [facility] [address] [place] [address], [facility] Hemoglobin mass conc (Bld) 12.6 g/dL Normal 12.0-15.0 [facility] Comment on above: Order Comment: No: D o not add to previous draw Performed By: #### 5 [id number] #### [facility] [address] MCH Entitic mass (RBC) 31.1 pg Normal 27.0-33.0 [facility] Comment on above: Order Comment: No: D o not add to previous draw Performed By: #### 5 [id number] #### [facility] [address] MCHC mass conc (RBC) 32.9 g/dL Normal 32.0-35.0 [facility] Comment on above: Order Comment: No: D o not add to previous draw Performed By: #### 5 [id number] #### [facility] [address] [facility] [address] MCV Entitic volume (RBC) 94.6 fL Normal 82.0-98.0 [facility] Comment on above: Order Comment: No: D o not add to previous draw Performed By: #### 5 [id number] #### [facility] [address] Nucleated RBC/100 WBC Ratio (Bld) 0 % Normal 0-0 [facility] Comment on above: Order Comment: No: D o not add to previous draw Performed By: #### 5 [id number] #### [facility] [address] PLAT CNT 266 10*3/uL Normal 150-400 [facility] Comment on above: Order Comment: No: D o not add to previous draw Performed By: #### 5 [id number] #### [facility] [address] RBC #/vol (Bld) 4.05 10*6/uL Normal 3.80-5.00 [facility] Comment on above: Order Comment: No: D o not add to previous draw Performed By: #### 5 [id number] #### [facility] 3000 [facility] [place] [address], [facility] WBC #/vol (Bld) 9.01 10*3/uL Normal 4.00-10.60 [facility] Comment on above: Order Comment: No: D o not add to previous draw Performed By: #### 5 [id number] #### [facility] [address] [facility] [address] PROTHROMBIN TIMEon 9 INR Coag RelTime (PPP) 1.07 {INR} Normal 0.91-1.16 [facility] Comment on above: Order [...] 1995;[id number]. Performed By: #### 5 [id number] #### [facility] [address] Prothrombin time (PT) Coag time (PPP) 13.9 s Normal 12.3-14.8 The [facility] Comment on above: Order Comment: No: D o not add to previous draw Result Comment: ALL RESULTS MUST BE INTERPRETED WITH RESPECT TO BLOOD DRAWING ARTIFACT OR DILUTION ERROR OF ANTICOAGULANT AT THE TIME OF SAMPLING. Performed By: #### 5 [id number] #### [facility] [address] Vital Signs Date Time Vital Sign Value Performing Clinician Joel mcclellan 03-26-2024 11:35-0400 Diastolic blood pressure 106 mm[Hg] MD Krzysztof Harp Work Phone: [facility] 03-26-2024 11:35-0400 Heart rate 76 /min MD Krzysztof Harp Work Phone: [facility] 03-26-2024 11:35-0400 Respiratory rate 18 /min MD Krzysztof Harp Work Phone: [facility] 03-26-2024 11:35-0400 SaO2% (BldA) [Mass fraction] 96 % MD Krzysztof Harp Work Phone: [facility] 03-26-2024 11:35-0400 Systolic blood pressure 152 mm[Hg] MD Krzysztof Harp Work Phone: [facility] 03-26-2024 10:24-0400 Body height 157.48 cm MD Krzysztof Harp Work Phone: [facility] 03-26-2024 10:24-0400 Body weight 62.14 kg MD Krzysztof Harp Work Phone: [facility] 02-19-2024 09:07-0400 Body height 157.48 cm MD Krzysztof Harp Work Phone: [facility] 02-19-2024 09:07-0400 Body mass index (BMI) [Ratio] 24.7 kg/m2 MD Krzysztof Harp Work Phone: [facility] 02-19-2024 09:07-0400 Body weight 61.23 kg MD Krzysztof Harp Work Phone: [facility] 02-19-2024 09:07-0400 Diastolic blood pressure 105 mm[Hg] MD Krzysztof Harp Work Phone: [facility] 02-19-2024 09:07-0400 Heart rate 60 /min MD Krzysztof Harp Work Phone: [facility] 02-19-2024 09:07-0400 Systolic blood pressure 146 mm[Hg] MD Krzysztof Harp Work Phone: [facility] 02-05-2024 13:37-0400 Diastolic blood pressure 47 mm[Hg] MD Krzysztof Harp Work Phone: [facility] 02-05-2024 13:37-0400 Heart rate 78 /min MD Krzysztof Harp Work Phone: [facility] 02-05-2024 13:37-0400 Respiratory rate 16 /min MD Krzysztof Harp Work Phone: [facility] 02-05-2024 13:37-0400 SaO2% (BldA) [Mass fraction] 97 % MD Krzystzof Harp Work Phone: [facility] 02-05-2024 13:37-0400 Systolic blood pressure 122 mm[Hg] MD Krzysztof Harp Work Phone: [facility] 02-05-2024 11:35-0400 Body height 157.48 cm MD Krzysztof Harp Work Phone: [facility] 02-05-2024 11:35-0400 Body temperature 99.1 [degF] MD Krzysztof Harp Work Phone: [facility] 02-05-2024 11:35-0400 Body weight 62.14 kg MD Krzysztof Harp Work Phone: [facility] Encounters Encounter Date Encounter Type Care Provider Facility Start: 06-17-2024 End: 06-17-2024 Derejeo flowspriscilla Sheth DO Work Phone: [facility] Start: 06-17-2024 End: 06-17-2024 Bamboo flowspriscilla Sheth DO Work Phone: [facility] Start: 06-17-2024 End: 06-17-2024 Office outpatient visit 25 minutes Cleve Sheth DO Work Phone: [facility] Comment on above: Chronic right hip pa in (Primary Dx); Sacral insufficiency fracture, initial encounter ([facility]); Closed fracture of multiple pubic rami, right, initial encounter ([facility]) Start: 06-17-2024 End: 06-17-2024 ambulatory CLEVE SHETH Not Available Start: 06-13-2024 End: 06-13-2024 Emergency department patient visit KRZYSZTOF Marmolejo DONNA [facility] Start: 06-12-2024 End: 06-12-2024 ambulatory CLEVE SHETH Not Available Start: 06-05-2024 End: 06-18-2024 Telephone encounter Miranda Case PT [facility] Comment on above: PT Initial Eval (Con tacted and offered to schedule PT eval per Dr. Harp. She said she'd like to wait till after she is seen by Dr. Sheth today; she said she'd contact.); Call Back (She noted that she will be having a CAT scan and Dr. Sheth has told her to hold-off till post. I said if I do not hear from her I will contact mid next week.); FU (Contacted to request update per Meryl and she said she was not advised to begin w/ PT due to fractures in bones. ) Start: 06-05-2024 End: 06-05-2024 ambulatory CLEVE SHETH Not Available Start: 2024 End: 2024 ambulatory CLEVE SHETH Not Available Start: 04-01-2024 End: 04-01-2024 ambulatory CLEVE SHETH Not Available Start: 03-26-2024 Non-patient / Non-visit MD Carrie Harp Work Phone: [facility] G[facility] Work Phone: Start: 03-26-2024 End: 03-26-2024 Admission to same day surgery center MD Krzysztof Harp Work Phone: [facility] Work Phone: Start: 03-26-2024 End: 03-26-2024 ambulatory MD Krzysztof Harp Work Phone: [facility] Work Phone: Start: 02-19-2024 End: 02-19-2024 ambulatory MD Krzysztof Harp Work Phone: [facility] Work Phone: Start: 02-19-2024 End: 02-19-2024 Patient encounter procedure MD Krzysztof Harp Work Phone: [facility] Work Phone: Start: 02-05-2024 Non-patient / Non-visit MD Carrie Harp Work Phone: [facility] Work Phone: Start: 02-05-2024 End: 02-05-2024 Admission to same day surgery center MD Krzysztof Harp Work Phone: [facility] Work Phone: Start: 02-05-2024 End: 02-05-2024 ambulatory MD Krzysztof Harp Work Phone: [facility] Work Phone: Start: 01-16-2024 Non-patient / Non-visit MD Carrie Harp Work Phone: [facility] Work Phone: Start: 01-09-2024 End: 01-09-2024 ambulatory DARSHAN HERNANDEZ Not Available Start: 01-07-2024 ambulatory KRZYSZTOF HARP [facility] Start: 01-16-2023 ambulatory JN GARCIA . Facility :[facility] Start: 01-15-2023 End: 01-15-2023 ambulatory APRIL CASTANEDA . Facility:[facility] Start: 01-10-2023 End: 01-11-[address] KRZYSZTOF HARP . Facility:[facility] Start: 12-15-2022 End: 12-15-2022 ambulatory APRIL CASTANEDA . Facility:[facility] Start: 12-15-2022 ambulatory RODRIGUEZ RIVERA [facility] Start: 12-05-2022 End: 12-06-[address] KRZYSZTOF [...] End: 11-20-2018 Patient encounter procedure PROVIDER UNKNOWN Facility:[facility] Start: 11-13-2018 End: 11-14-2018 Patient encounter procedure DEFAULT PHYSICIAN Facility:[facility] Start: 10-31-2018 End: 11-01-2018 Patient encounter procedure DEFAULT PHYSICIAN Facility:[facility] Start: 09-23-2018 End: 09-24-2018 Patient encounter procedure DEFAULT PHYSICIAN Facility:[facility] Start: 09-05-2018 End: 09-06-2018 Patient encounter procedure DEFAULT PHYSICIAN Facility:[facility] Procedures Date Procedure Procedure Detail Performing Clinician Start: 03-26-2024 Screening colonoscopy Akosua Harp Work Phone: Start: 02-05-2024 Esophagogastroduodenoscopy MD Krzysztof Hapr Work Phone: Plan of Treatment Date Care Activity Detail Author Start: 07-15-2024 End: 07-15-2024 Patient encounter procedure 07/15/2024 9:45 AM EST Office Visit [facility] [address] [place] [address] Cleve Sheth, DO [address] [place] [address] [facility] Start: 07-14-2024 End: 07-14-2024 Patient encounter procedure 07/14/2024 1:30 PM EST Office Visit [facility] [address] [place] [address] Raven Sesay, DO [address] [place] [address] [facility] [address] Start: 06-17-2024 End: 06-17-2024 Patient encounter procedure 06/17/2024 1:30 PM EDT Office Visit [facility] [address] [place] [address] Cleve Sheth, DO [address] [place] [address] Chronic right hip pain (Primary Dx); Sacral insufficiency fracture, initial encounter (CMS/HCC); Closed fracture of multiple pubic rami, right, initial encounter ([facility]) [facility] Comment on above: Chronic right hip pa in (Primary Dx); Sacral insufficiency fracture, initial encounter (CMS/HCC); Closed fracture of multiple pubic rami, right, initial encounter (CMS/HCC) Start: 05-11-2024 Influenza vaccination Influenza Vacc ine (#1) [facility] Start: 03-26-2024 [facility] Start: 02-05-2024 [facility] Patient Education [facility] Work Phone: Immunizations Immunization Date Immunization Notes Care Provider Kimberly laurent 06-05-2023 Influenza, Seasonal, Quadrivalent, Adjuvanted Cleve Sheth DO Work Phone: [facility] 06-05-2023 influenza virus vacc ine, unspecified formulation Cleve Sheth DO Work Phone: [facility] 06-12-2022 influenza, high dose seasonal, preservative-free Cleve Sheth DO Work Phone: [facility] 05-30-2022 Influenza, High-dose Seasonal, Quadrivalent, Preservative Free Cleve Sheth DO Work Phone: [facility] 06-15-2021 Influenza, High-dose Seasonal, Quadrivalent, Preservative Free Cleve Meryl DO Work Phone: [facility] 01-10-2021 SARS-CoV-2, Unspecified Amando emmy Sheth DO Work Phone: [facility] 06-18-2018 influenza, high dose seasonal, preservative-free Cleve Sheth DO Work Phone: [facility] 05-22-2017 influenza, injectabl e, quadrivalent, preservative free Cleve Sheth DO Work Phone: [facility] 06-14-2016 influenza, high dose seasonal, preservative-free Cleve Meryl DO Work Phone: [facility] 06-03-2015 influenza, high dose seasonal, preservative-free Cleve Sheth DO Work Phone: [facility] 09-10-2014 pneumococcal conjuga te vaccine, 13 valent Cleve Sheth DO Work Phone: [facility] 06-10-2014 influenza, seasonal, injectable Cleve Sheth DO Work Phone: [facility] 08-11-2013 zoster vaccine, live Cleve Briana kris DO Work Phone: [facility] 07-14-2013 pneumococcal polysaccharide vaccine, 23 valent Cleve Sheth DO Work Phone: [facility] 06-30-2013 seasonal influenza, intradermal, preservative free Cleve Sheth DO Work Phone: [facility] Healthcare Payers Date Payer Category Payer Self-pay 2021 Medicare ANTHEM MEDICARE ADVANTAGE ANTHEM MEDICARE ADVANTAGE [id number] 2021-Present [address] [place] [address] [id number] 2015 Medicare [id number] 1959 Unknown [id number] 1950 Unknown [id number] 2.16.840.1.745011.3.579.2.647 1948 Unknown [id number] 2.16.840.1.553365.3.579.2.647 1948 Unknown [id number] 2.16.840.1.787336.3.579.2.647 1948 Unknown [id number] 2.16.840.1.597783.3.579.2.647 1948 Unknown [id number] 2.16.840.1.151964.3.579.2.647 1948 Unknown [id number] 2.16.840.1.961507.3.579.2.593 1948 Unknown [id number] 2.16.840.1.682219.3.579.2.593 1948 Unknown [id number] 2.16.840.1.706791.3.579.2.593 1948 Unknown [id number] 2.16.840.1.175074.3.579.2.593 1948 Unknown [id number] 2.16.840.1.191383.3.579.2.593 1948 Unknown [id number] 2.16.840.1.878260.3.579.2.593 1948 Unknown [id number] 2.16.840.1.343538.3.579.2.593 1948 Unknown [id number] 2.16.840.1.485194.3.579.2.593 1948 Unknown [id number] 2.16.840.1.867630.3.579.2.593 1948 Unknown [id number] 2.16.840.1.523011.3.579.2.593 1948 Unknown [id number] 2.16.840.1.659619.3.579.2.593 1948 Unknown [id number] 2.16.840.1.515740.3.579.2.593 1948 Unknown [id number] 2.16.840.1.377319.3.579.2.593 1948 Unknown [id number] 2.16.840.1.991078.3.579.2.593 1948 Unknown [id number] 2.16.840.1.161354.3.579.2.593 1948 Unknown [id number] 2.16.840.1.550013.3.579.2.593 1948 Unknown [id number] 2.16.840.1.328286.3.579.2.593 1948 Unknown [id number] 2.16.840.1.128619.3.579.2.593 1948 Unknown [id number] 2.16.840.1.167910.3.579.2.593 1948 Unknown [id number] 2.16.840.1.528069.3.579.2.128 6 1948 Unknown [id number] 2.16.840.1.394564.3.579.2.128 6 1948 Unknown [id number] 2.16.840.1.521108.3.579.2.128 6 1948 Unknown [id number] 2.16.840.1.860365.3.579.2.128 6 1948 Unknown [id number] 2.16.840.1.218640.3.579.2.125 9 1948 Unknown [id number] 2.16.840.1.983634.3.579.2.125 9 1948 Unknown [id number] 2.16.840.1.231803.3.579.2.125 9 1948 Unknown [id number] 2.16.840.1.696235.3.579.2.125 9 1948 Unknown [id number] 2.16.840.1.015861.3.579.2.125 9 1948 Unknown [id number] 2.16.840.1.849734.3.579.2.125 9 1948 Unknown [id number] 2.16.840.1.597774.3.579.2.125 9 Medicare [id number] Unknown Unknown [id number] 2.16.840.1.290143.3.579.2.531 Unknown [id number] 2.16.840.1.852526.3.579.2.531 Social History Date Type Detail Facility Start: 05-04-2023 End: 02-05-2024 Tobacco smoking status NHIS Never smoked tobacco (finding) [facility] Start: 1950 Sex Assigned At Female F [facility] Start: 01-09-2024 Alcoholic beverage intake Lifetime non-drinker (finding) [facility] Start: 01-09-2024 History of Social function [facility] Start: 01-09-2024 Tobacco use panel [facility] Start: 1950 Sex assigned at Not on file [facility] Goals Date Patient Goal Desired Activity /State Clinical Notes 02-14-2022 to 06-17-2024 Cleve Sheth, DO - 06/17/2024 1:30 PM EDTTelephone Encounter - Bella Saavedra - 06/05/2024 11:40 AM EDTTelephone Encounter - Bella Saavedra - 06/05/2024 11:40 AM EDT Note Date & Type Note Facility 06-17-2024 History of Presen t illness Narrative Images from the original note were not included. HISTORY OF PRESENT ILLNESS: Sheila Mac is an 74 y.o. @ female. Chief complaint RT hip pain RT hip: here for MRI results [facility] 06/12/24 Pt went to [facility] ER 06/13, X-rays done pelvis and lumbar. RX for lidoderm patches given, she states she could hardly walk. RT hip pain x 2-3 months, worsened on 05/31 after going to the grocery store. Denies injury. She had injections at [facility] in April without relief. She saw Dr Harp 06/02 and 06/04, given IM injections-no relief. She is having difficulty walking, using a walker. Pain with WB. Pain in the buttock, hamstring and inner thigh. Pain can be aching and sharp. Difficulty with sit to stand. Pain 1/10 at rest, goes to 10/10 with WB. Taking tramadol and TYL, using icy hot. Tried lidoderm patches without relief. Saw Dr Harp 06/02 and 06/04. XR done at [facility] 06/02/24. Using hot icy hot. Given IM torodol, Tramadol RX and PT ordered, XR [facility] 06/05/24, MRI [facility] 06/12/24, [facility] ER 06/13/24, lidoderm patches I reviewed notes from [facility] emergency department dated June 13, 2024. Patient was evaluated for left-sided hip pain and was prescribed lidocaine patches. She was recommended to take Tylenol. She is recommended to follow up with me. The patient had x-rays of the lumbar spine which were unremarkable for fracture. MEDICATION: Current Outpatient Medications on File Prior to Visit Medication Sig Dispense Refill acetaminophen (Tylenol) 500 MG tablet Take 500 mg by mouth every 6 (six) hours if needed aspirin 81 MG EC tablet Take 81 mg by mouth in the morning. atorvastatin (Lipitor) 40 MG tablet Take 40 mg by mouth in the morning. clopidogrel (Plavix) 75 MG tablet Take by mouth Daily. metoprolol tartrate (Lopressor) 25 MG tablet pantoprazole (ProtoNix) 40 MG EC tablet Take 40 mg by mouth at bedtime sucralfate (Carafate) 1 g tablet TAKE 1 TABLET BY MOUTH ON AN EMPTY STOMACH FOUR TIMES DAILY No current facility-administered medications on file prior to visit. MEDICAL HISTORY: Past Medical History: Diagnosis Date Diabetes ([facility]) Diverticulitis Gastric ulcer GERD (gastroesophageal reflux disease) HTN (hypertension) ([facility]) Osteoporosis ([facility]) Pancreatitis Rheumatic fever ALLERGIES: Allergies Allergen Reactions Iodinated Contrast Media Morphine Penicillins VITALS: Visit Vitals Smoking Status Never PHYSICAL EXAM: Ortho Exam Diffuse tenderness over sacral region and RT hip. severe antalgic gait. Has great difficulty with transfers. Leans heavily on a Rollator. She can not stand erect. She can not fully extend the hip. She has 3/5 abduction strength of the right hip. IMAGING: June 05, 2024 x-rays from the [facility] office AP pelvis and lateral of the right hip demonstrate an intact hip joint space. There are no fractures detected. The bone has an osteopenic appearance. The joint spaces are symmetric. There is no obvious effusion or soft tissue swelling. Impression: No acute findings on x-rays of the right hip [facility] [place] I reviewed an MRI of the right hip from the [facility] imaging center. There is a sacral insufficiency fracture and suspected insufficiency fractures of the right superior and inferior pubic rami. The right hip joint is intact and there are no fractures in the hip. There is loss of articular cartilage in the right hip consistent with arthritis. ASSESSMENT: ICD-10-CM 1. Chronic right hip pain M25.551 G89.29 2. Sacral insufficiency fracture, initial encounter ([facility]) M84.48XA 3. Closed fracture of multiple pubic rami, right, initial encounter ([facility]) S32.591A calcitonin, salmon, (Miacalcin) 200 UNIT/ACT nasal spray PLAN: I explained the diagnosis and reviewed treatment options. I answered all of the patient's questions. I am recommending nonsurgical treatment. I have recommended supplemental calcium and vitamin-D and calcitonin nasal spray. Weight-bearing as tolerated with an assistive device such as a walker or cane. Follow up in one month, no xrays, any issues/concerns follow up sooner. Dr. Sheth obtained history and examined the patient, I am acting as scribe for Dr. Sheth/ashley Sheth D.O. documented in this encounter [facility] 06-05-2024 Telephone encounter Note $40.00 copay / Prior auth needed. [facility] 06-05-2024 Miscellaneous Notes $40.00 copay / Prior auth needed. documented in this encounter [facility] 03-26-2024 Procedure note [facility] 02-05-2024 Procedure note [facility] 12-15-2022 Note Cardiology Follow Up Progress [...] She will be (more content not included)... [facility] 12-15-2022 Note Review of Systems Cardiovascular: Positive for leg swelling. Respiratory: Positive for shortness of breath. Skin: Positive for color change. Neurological: Positive for headaches. All other systems reviewed and are negative. [facility] 07-25-2022 Note PROCEDURE: MRA NECK WO [...] due to atherosclerotic disease. Electronically authenticated by: DANIEL MARIE Date: 2022-07-25 13:25 [facility] 05-11-2022 Note PROCEDURE: XR FOOT L T MIN 3 VIEWS HISTORY: Pain in left foot ; acute plantar pain COMPARISON: None. FINDINGS: BONES:No fracture, acute abnormality, or significant arthropathy. SOFT TISSUES:No visible soft tissue swelling. EFFUSION:None visible. OTHER: Negative. IMPRESSION: 1. No acute abnormality, significant degenerative changes, or findings to account for patient's symptoms. Electronically authenticated by: DANIEL MARIE Date: 2022-05-11 12:51 [facility] 02-14-2022 Note PROCEDURE: XR KNEE L T 4V or > COMPARISON: None. HISTORY: Osteoarthritis FINDINGS: BONES:No fracture, acute abnormality, or significant arthropathy. SOFT TISSUES:Negative. No visible soft tissue swelling. EFFUSION:Moderate suprapatellar joint effusion OTHER: Negative. IMPRESSION: Moderate joint effusion Electronically authenticated by: GODWIN BECK Date: 2022-02-14 17:30 [facility] Evaluation note No assessment inform ation available [facility] Work Phone: Evaluation note Diagnosis Onset Date Duodenal diverticulum acute Hiatal hernia acute IBS (irritable bowel syndrome) acute Screening for colon cancer a dyan [facility] Work Phone: Evaluation note* Diagnosis Chronic right hip pain- Primary Sacral insufficiency fracture, initial encounter ([facility]) Closed fracture of multiple pubic rami, right, initial encounter ([facility]) documented in this encounter [facility] Author Ben Sanchez [facility] February 05, 2024 1:08pm Note Date/Time February 05, 2024 1:08p akosua [facility] [address] [place] [address] Gastroenterology H&P Signed Patient: Sheila Mac MR#: [id number] : 1950 Acct:[id number] Age/Sex: 73 / F Adm Date: 4 Loc: Room: Type: [facility] Attending Dr: Ben Sanchez MD Copies [...] MD Documented By: Ben Sanchez MD 02/05/24 1309 Signed By: <Electronically signed by Ben Sanchez MD> 02/05/24 1305 [facility] Work Phone: History and physical note Author Ben Sanchez [facility] March 26, 2024 10:37am Note Date/Time March 26, 2024 10:3 7am [facility] [address] [place] [address] Gastroenterology H&P Signed Patient: Sheila Mac MR#: [id number] : 1950 Acct:[id number] Age/Sex: 73 / F Adm Date: 4 Loc: Room: Type: [facility] Attending Dr: Bne Sanchez MD Copies to: MD Krzysztof Crisostomo [...] <Electronically signed by Ben Sanchez MD> 03/26/24 1037 [facility] Work Phone: Summary Purpose Family History Relationship Condition Age at Onset Recorded Date/T elizabeth father Unknown Not Specified Unknown Relationship Condition Age at Onset Recorded Date/T elizabeth father Unknown mother Unknown Advance Directives Advance Directive Response Recorded [...] and content) DATE CREATED AUTHOR 11/24/2018 [facility] DATE CREATED AUTHOR AUTHOR'S ORGANIZ ATION 12/19/2022 [facility] DATE CREATED AUTHOR AUTHOR'S ORGANIZ ATION 01/18/2023 [facility] DATE CREATED AUTHOR AUTHOR'S ORGANIZ ATION 01/10/2024 [facility] DATE CREATED AUTHOR AUTHOR'S ORGANIZ ATION 03/29/2024 [facility] DATE CREATED AUTHOR AUTHOR'S ORGANIZ ATION 06/15/2024 [facility] DATE CREATED AUTHOR AUTHOR'S ORGANIZ ATION 06/19/2024 [facility] EPIC Care Teams (unrecognized [...] Provide r Active Start: March 26, 2024 Shrimp Header Relationship Specialty Start Date End Date Krzysztof Harp MD [address] [place] [address] PCP - General Family Medicine 01/09/24 Shrimp Header Relationship Specialty Start Date End Date Krzysztof Harp MD [address] [place] [address] PCP - General Family Medicine 01/09/24 Shrimp Header Relationship Specialty Start Date End Date Krzysztof Harp MD [address] [place] [address] PCP - General Family Medicine 01/09/24 Reason for Visit (unrecogniz ed section and content) Reason Comments Pain Reason Onset Date Comments PT Initial Eval 06/05/2024 Contacted and of [facility] to schedule PT eval per Dr. Harp. She said she'd like to wait till after she is seen by Dr. Sheth today; she said she'd contact. Call Back 06/06/2024 She noted that s he will be having a CAT scan and Dr. Sheth has told her to hold-off till post. I said if I do not hear from her I will contact mid next week. FU 06/18/2024 Contacted to req uest update per Meryl and she said she was not advised to begin w/ PT due to fractures in bones. FOR RECORDS PERTAINING TO PATIENTS WHO ARE [...] BE BASED ON THE PRIMARY CLINICAL RECORDS. [facility]: [facility]. provides no warranty or guarantee of the accuracy or completeness of information in this document.
[2024-06-27 09:16] VITALS: PULSE 90
--- NOTE | 2024-06-27 09:18 | XR_ITS ---
The [address] [address] Patient Name: EDIN SAMANIEGO MRN: [id number] date: 1950 Sex: F Assigned Patient Location: ER Current Patient Location: ER Accession/Order Number: [id number] Exam Date: 06/27/2024 09:24 Report Date: 06/27/2024 09:53 At the request of: SJ PEÑA Procedure: XR ankle LT min 3V PROCEDURE: XR ankle LT min 3V, XR foot LT min 3V COMPARISON: None. HISTORY: pain hx of pathological fx FINDINGS: BONES:No acute fracture or dislocation. No significant degenerative change SOFT TISSUES:Negative. No visible soft tissue swelling. EFFUSION:None visible. OTHER: Scattered calcifications XR/XR ankle LT min 3V IMPRESSION: No acute fracture of the foot or ankle Electronically authenticated by: GODWIN BECK Date: 06/27/2024 09:53
--- NOTE | 2024-06-27 09:19 | XR_ITS ---
The [address] [address] Patient Name: EDIN SAMANIEGO MRN: [id number] date: 1950 Sex: F Assigned Patient Location: ER Current Patient Location: ER Accession/Order Number: [id number] Exam Date: 06/27/2024 09:24 Report Date: 06/27/2024 09:53 At the request of: SJ PEÑA Procedure: XR foot LT min 3V PROCEDURE: XR ankle LT min 3V, XR foot LT min 3V COMPARISON: None. HISTORY: pain hx of pathological fx FINDINGS: BONES:No acute fracture or dislocation. No significant degenerative change SOFT TISSUES:Negative. No visible soft tissue swelling. EFFUSION:None visible. OTHER: Scattered calcifications XR/XR foot LT min 3V IMPRESSION: No acute fracture of the foot or ankle Electronically authenticated by: GODWIN BECK Date: 06/27/2024 09:53
[2024-06-27] MEDS: OXYCODONE HCL/ACETAMINOPHEN 5MG/325MG 1 TAB PO (09:30)
--- NOTE | 2024-06-27 09:41 | ED.EXTPRO1 ---
HPI - Extremity Problem General Chief complaint: Extremity Problem, Nontraumatic Stated complaint: LEFT LEG INJURY Time Seen by Provider: 06/27/24 09:04 Source: patient and family Mode of arrival: Wheelchair Limitations: physical limitation History of Present Illness HPI Narrative: The patient presented to us with a pathological fracture history diagnosed last month ,she had a fracture in her pelvis with no trauma or fall and she is supposed to be using the walker, she woke up this morning to find that she have left foot pain that is severe and she is not able to put weight on that left foot She was putting more weight on the left side in the last few days due to the fact that her orthopedic surgeon told her not to put weight on the right leg because of the history of the acetabular fracture and the sacral fractures The patient mentioned that she has been putting more weight on the left foot there was no history of fall or trauma Related Data Home Medications ?Medication ?Instructions ?Recorded ?Confirmed aspirin 81 mg tablet,delayed 81 mg PO DAILY 04/17/24 06/27/24 release atorvastatin 20 mg tablet 20 mg PO DAILY 04/17/24 06/27/24 cetirizine 10 mg capsule 10 mg PO DAILY 04/17/24 06/27/24 clopidogrel 75 mg tablet (Plavix) 75 mg PO DAILY 04/17/24 06/27/24 pantoprazole 40 mg tablet,delayed 40 mg PO QPM 04/17/24 06/27/24 release (Protonix) sucralfate 1 gram tablet (Carafate) 1 g PO ACHS 04/17/24 06/27/24 metoprolol tartrate 25 mg tablet 25 mg PO BID 04/29/24 06/27/24 ondansetron 4 mg disintegrating 4 mg PO DAILY PRN nausea and 04/29/24 06/27/24 tablet vomiting calcitonin (salmon) 200 1 spray intranasal DAILY 06/27/24 06/27/24 unit/actuation nasal spray tramadol 50 mg tablet 50 mg PO Q8H PRN pain 06/27/24 06/27/24 Previous Rx's ?Medication ?Instructions ?Recorded methylprednisolone 4 mg tablets in 4 mg PO DAILY #21 ea 06/27/24 a dose pack (Medrol (Tavares)) tramadol 50 mg tablet 50 mg PO Q8H PRN pain 3 days #9 06/27/24 tabs Allergies Allergy/AdvReac Type Severity Reaction Status Date / Time Iodinated Contrast Media Allergy edema Verified 04/22/24 10:40 levofloxacin (From Levaquin) Allergy Unknown Verified 04/22/24 10:40 Penicillins Allergy Rash Verified 04/22/24 10:40 meloxicam (From Mobic) AdvReac Unknown Verified 04/22/24 10:40 morphine AdvReac Vomiting Verified 04/22/24 10:40 NSAIDS (Non-Steroidal AdvReac gastric Verified 04/22/24 10:40 Anti-Inflamma ulcer Review of Systems ROS Status of ROS 10 or more systems reviewed and unremarkable except as noted in history and below [facility] Medical History (Updated 06/27/24 @ 11:02 by Remedios Leigh MD) Abdominal pain ?R10.9 - Unspecified abdominal pain (ICD-10) Leukocytosis ?D72.829 - Elevated white blood cell count, unspecified (ICD-10) Acute UTI ?N39.0 - Urinary tract infection, site not specified (ICD-10) H/O: CVA (cerebrovascular accident) ?Z86.73 - Personal history of transient ischemic attack (TIA), and cerebral infarction without residual deficits (ICD-10) Osteoporosis ?M81.0 - Age-related osteoporosis without current pathological fracture (ICD-10) Arthritis ?M19.90 - Unspecified osteoarthritis, unspecified site (ICD-10) CVA (cerebral vascular accident) ?I63.9 - Cerebral infarction, unspecified (ICD-10) Kidney stone ?N20.0 - Calculus of kidney (ICD-10) Gastric ulcer ?K25.9 - Gastric ulcer, unspecified as acute or chronic, without hemorrhage or perforation (ICD-10) Hiatal hernia ?K44.9 - Diaphragmatic hernia without obstruction or gangrene (ICD-10) GERD (gastroesophageal reflux disease) ?K21.9 - Gastro-esophageal reflux disease without esophagitis (ICD-10) Fibromyalgia ?M79.7 - Fibromyalgia (ICD-10) Diverticulosis ?K57.90 - Diverticulosis of intestine, part unspecified, without perforation or abscess without bleeding (ICD-10) CKD (chronic kidney disease) stage 3, GFR 30-59 ml/min ?N18.30 - Chronic kidney disease, stage 3 unspecified (ICD-10) Borderline diabetes ?R73.03 - Prediabetes (ICD-10) HTN (hypertension) ?I10 - Essential (primary) hypertension (ICD-10) Surgical History (Updated 04/17/24 @ 09:05 by Julieta Martinez) Perforated gastric ulcer ?K25.5 - Chronic or unspecified gastric ulcer with perforation (ICD-10) H/O colonoscopy ?Z98.890 - Other specified postprocedural states (ICD-10) H/O Spinal surgery ?Z98.890 - Other specified postprocedural states (ICD-10) Hx of exploratory laparotomy ?Z98.890 - Other specified postprocedural states (ICD-10) S/P right knee arthroscopy ?Z98.890 - Other specified postprocedural states (ICD-10) History of hysterectomy ?Z90.710 - Acquired absence of both cervix and uterus (ICD-10) History of esophagogastroduodenoscopy ?Z98.890 - Other specified postprocedural states (ICD-10) S/P cystoscopy ?Z98.890 - Other specified postprocedural states (ICD-10) Status post cervical spinal fusion ?Z98.1 - Arthrodesis status (ICD-10) Hx of tubal ligation ?Z98.51 - Tubal ligation status (ICD-10) Hx of appendectomy ?Z90.49 - Acquired absence of other specified parts of digestive tract (ICD-10) Family History (Updated 04/29/24 @ 17:10 by Elvia Aceves) Mother Family history of cancer Social History (Updated 04/29/24 @ 17:11 by Elvia Aceves) Within the past year, how often did you have a drink containing alcohol: monthly or less Within the past year, how many standard drinks containing alcohol did you have on a typical day: 1 or 2 Within the past year, how often did you have six or more drinks on one occasion: never Total score: 0 Score interpretation: A score less than 3 is consistent with normal alcohol consumption. 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 Known occupational exposures/hazards: No Highest level of school completed/degree received: 9th grade Do you want help with school or training: No Are you now , , , , never or living with a partner: In a typical week, how many times do you talk on the telephone with family, friends, or neighbors: 3 or more times per week How often do you get together with friends or relatives: 3 or more times per week How often do you attend samaritan or sikh services: never Do you belong to any clubs or organizations such as samaritan groups unions, fraternal or athletic groups, or school groups: no Total score: 2 Score interpretation: A score of greater than or equal to 2 indicates the lowest level of social isolation. Little interest or pleasure in doing things: not at all Feeling down, depressed, or hopeless: not at all Feel stressed/tense/nervous/anxious/difficulty sleeping: not at all Due to disability, difficulty making decisions: No Do you think of yourself as: straight/heterosexual Gender Identity: female Exam Narrative Exam Narrative: Nurses notes and vital signs reviewed and patient is not hypoxic. General: Well-appearing and in no apparent distress. Skin: Warm, dry, no pallor noted. No rash. Head: Normocephalic, atraumatic. Neck: Supple, non-tender. Eye: Pupils are equal, round and EOMI. No scleral icterus. Ears, Nose, Mouth, and Throat: TM are clear, no nasal mucosal hypertrophy. Oral mucosa is moist, no posterior oropharynx erythema, uvula is mid-line Cardiovascular: Regular Rate and Rhythm without murmur, gallop or rub. Respiratory: No accessory muscle use or respiratory distress. Lungs are clear to auscultation, no wheezing, rales or rhonchi Chest Wall: no tenderness Back: No midline thoracic or lumbar vertebral tenderness. No CVA tenderness Musculoskeletal: normal ROM, no calf or popliteal tenderness, the patient does have mild swelling of the left foot and there is no open wound and anterior tib pulse is normal and the patient does not have any vascular injury detected there is no signs of infection GI: Abdomen is soft, non-distended. Normal bowel sounds. No masses appreciated. No tenderness to palpation. No rebound, guarding, or rigidity noted. Neurological: A&O x4. No cranial nerve dysfunction observed. Constitutional Vital Signs, click to edit/add: Last Vital Signs Temp 97.7 F 06/27/24 09:06 Pulse 90 06/27/24 09:16 Resp 18 06/27/24 09:06 BP 131/93 H 06/27/24 09:06 Pulse Ox 97 10/18/24 09:06 O2 Del Method Room Air 06/27/24 09:06 Course Vital Signs Vital signs: Vital Signs Temperature 97.7 F 06/27/24 09:06 Pulse Rate 104 H 06/27/24 09:06 Respiratory Rate 18 06/27/24 09:06 Blood Pressure 131/93 H 06/27/24 09:06 Pulse Oximetry 97 06/27/24 09:06 Oxygen Delivery Method Room Air 06/27/24 09:06 Temperature 97.7 F 06/27/24 09:06 Pulse Rate 90 06/27/24 09:16 Respiratory Rate 18 06/27/24 09:06 Blood Pressure 131/93 H 06/27/24 09:06 Pulse Oximetry 97 06/27/24 09:06 Oxygen Delivery Method Room Air 06/27/24 09:06 MDM - Extremity (Nontraumatic) MDM Narrative Medical decision making narrative: X-ray of the patient foot and ankle showed no acute pathology The patient was complaining also of a spasm in her foot the patient blood workup shows chronic kidney disease in addition to the CBC shows leukocytosis which could be reactive at the patient did not have any source of infection The patient was instructed about follow-up with the primary care doctor and also right now she will be provided with an René wrap she need to elevate the foot in addition to being treated outpatient with tramadol and Medrol Dosepak Patient was instructed about monitoring her symptoms in case she could not manage at home apparently she was offered rehab and she already have this planned as outpatient The patient is to follow up with primary care physician in next 2-3 days or to return to the emergency department should any of the signs or symptoms worsen or new symptoms develop. The patient agrees with the following Diagnosis and Treatment plan and the patient will be discharged home. Lab Data Labs: Lab Results 06/27/24 Range/Units 10:03 WBC 13.2 H (4.0-11.0) 10^3/uL RBC 3.94 L (4.20-5.40) 10^6/uL Hgb 12.3 (12.0-16.0) g/dL Hct 38.7 (36.0-48.0) % MCV 98.2 (81.0-99.0) fL MCH 31.2 (26.7-34.0) pg MCHC 31.8 (29.9-35.2) g/dL RDW 12.5 (11.0-15.0) % Plt Count 377 (150-450) 10^3/uL MPV 9.5 (9.5-13.5) fL Neut % (Auto) 73.3 (43.0-75.0) % Lymph % (Auto) 15.8 L (20.5-60.0) % [place] % (Auto) 7.7 (1.7-12.0) % Eos % (Auto) 2.1 (0.9-7.0) % Baso % (Auto) 0.6 (0.2-2.0) % Neut # (Auto) 9.7 H (1.4-6.5) 10^3/uL Lymph # (Auto) 2.1 (1.2-3.8) 10^3/uL [place] # (Auto) 1.0 H (0.3-0.8) 10^3/uL Eos # (Auto) 0.3 (0.0-0.7) 10^3/uL Baso # (Auto) 0.1 (0.0-0.1) 10^3/uL Abs Immat Gran (auto) 0.07 H (0.00-0.03) 10^3/uL Imm/Tot Granulo (auto) 0.5 (0.0-0.5) % Sodium 141 (136-145) mmol/L Potassium 4.0 (3.5-5.1) mmol/L Chloride 105 (98-107) mmol/L Carbon Dioxide 19.2 L (21.0-32.0) mmol/L Anion Gap 20.8 BUN 26.0 H (7.0-18.0) mg/dL Creatinine 2.43 H (0.55-1.02) mg/dL Est GFR ( Amer) 23 L (>=60 mL/min/1.73m^2) Est GFR (Non-Af Amer) 19 L (>=60 mL/min/1.73m^2) BUN/Creatinine Ratio 10.7 Glucose 119 H (74-106) mg/dL Calcium 9.8 (8.5-10.1) mg/dL Total Bilirubin 0.7 (0.2-1.0) mg/dL AST 16 (15-37) U/L ALT 16 (14-59) U/L Alkaline Phosphatase 140 H (46-116) U/L Total Protein 7.7 (6.4-8.2) g/dL Albumin 3.0 L (3.4-5.0) g/dL Globulin 4.7 g/dL Albumin/Globulin Ratio 0.6 Discharge Plan Discharge Chief Complaint: Extremity Problem, Nontraumatic Clinical Impression: Metatarsalgia Patient Disposition: Home, Self-Care Time of Disposition Decision: 11:01 Condition: Good Prescriptions / Home Meds: New methylprednisolone [Medrol (Tavares)] 4 mg tablets,dose pack 4 mg PO DAILY Qty: 21 0RF Rx Instructions: please take as instructed by medrol dose pack tramadol 50 mg tablet 50 mg PO Q8H PRN (Reason: pain) 3 Days Qty: 9 0RF No Action aspirin 81 mg tablet,delayed release (DR/EC) 81 mg PO DAILY atorvastatin 20 mg tablet 20 mg PO DAILY sucralfate [Carafate] 1 gram tablet 1 g PO ACHS cetirizine 10 mg capsule 10 mg PO DAILY clopidogrel [Plavix] 75 mg tablet 75 mg PO DAILY pantoprazole [Protonix] 40 mg tablet,delayed release (DR/EC) 40 mg PO QPM metoprolol tartrate 25 mg tablet 25 mg PO BID ondansetron 4 mg tablet,disintegrating 4 mg PO DAILY PRN (Reason: nausea and vomiting) calcitonin (salmon) 200 unit/actuation spray,non-aerosol 1 spray intranasal DAILY tramadol 50 mg tablet 50 mg PO Q8H PRN (Reason: pain) Print Language: German Instructions: Metatarsalgia (DC) Referrals: Alvaro Harp MD [Primary Care Provider] - 1 week
[2024-06-27] MEDS: ORPHENADRINE 60 MG/ 2 ML VIAL 30 MG IV (10:08)
[2024-06-27 10:37] LABS: Basophils Absolute Auto 0.1 10^3/uL (0.0-0.1); Basophils Percent Auto 0.6 % (0.2-2.0); Eosinophils Absolute Auto 0.3 10^3/uL (0.0-0.7); Eosinophils Percent Auto 2.1 % (0.9-7.0); Hematocrit 38.7 % (36.0-48.0); Hemoglobin 12.3 g/dL (12.0-16.0); Immature Granulocytes Abs Auto 0.07 10^3/uL (0.00-0.03); Immature Granulocytes Pct Auto 0.5 % (0.0-0.5); Lymphocytes Absolute Auto 2.1 10^3/uL (1.2-3.8); Lymphocytes Percent Auto 15.8 % (20.5-60.0); Mean Corpuscular HGB Conc 31.8 g/dL (29.9-35.2); Mean Corpuscular Hemoglobin 31.2 pg (26.7-34.0); Mean Corpuscular Volume 98.2 fL (81.0-99.0); Mean Platelet Volume 9.5 fL (9.5-13.5); Monocytes Percent Auto 7.7 % (1.7-12.0); Neutrophils Absolute Auto 9.7 10^3/uL (1.4-6.5); Neutrophils Percent Auto 73.3 % (43.0-75.0); Platelet Count 377 10^3/uL (150-450); Red Blood Count 3.94 10^6/uL (4.20-5.40); Red Cell Distribution Width 12.5 % (11.0-15.0); White Blood Count 13.2 10^3/uL (4.0-11.0)
[2024-06-27 10:51] LABS: Alanine Aminotransferase 16 U/L (14-59); Albumin Globulin Ratio 0.6; Alkaline Phosphatase 140 U/L (46-116); Anion Gap 20.8; Aspartate Amino Transferase 16 U/L (15-37); BUN Creatinine Ratio 10.7; Bilirubin Total 0.7 mg/dL (0.2-1.0); Calcium 9.8 mg/dL (8.5-10.1); Carbon Dioxide 19.2 mmol/L (21.0-32.0); Chloride 105 mmol/L (98-107); Estimated GFR (African America 23 (>=60 mL/min/1.73m^2); Estimated GFR (Non-African Ame 19 (>=60 mL/min/1.73m^2); Globulin 4.7 g/dL; Glucose 119 mg/dL (74-106); Sodium 141 mmol/L (136-145); Total Protein 7.7 g/dL (6.4-8.2)
[2024-06-27] MEDS: METHYLPREDNISOLONE SOD SUCC PF 40 MG/ML VIAL IVP (11:10)
== END 2024-06-27 11:31 | disposition home or self-care (01) ==
PROVIDERS: Emergency Provider Emergency Medicine; PCP Family Medicine
DX: M77.42 Metatarsalgia, left foot (principal); Z87.311 Personal history of (healed) other pathological fracture
CPT/HCPCS: 36415; 73610; 73630; 80053; 85025; 96374; 96375; 99285; J2360; J2919

== ENCOUNTER 2024-06-30 12:17 | Outpatient (RCR) | payer MEDICARE, SELFPAY ==
[2024-06-30 12:35] VITALS: BP 128/83; PULSE 81; TEMP 36.3; O2SAT 94
--- NOTE | 2024-06-30 12:37 | PC.NURSE ---
1230 Here for IV hydration, states she has been vomiting for a week. alert oriented color pink skin warm dry, resp with ease, lungs clear posteriorly to auscultation. heart tones strong and regular 1240 family leaves, iv fluids infusing at 500 ml hr. 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
[2024-06-30] MEDS: 0.9 % SODIUM CHLORIDE 1,000 ML 500 ML IV (12:40)
--- NOTE | 2024-06-30 14:51 | PC.NURSE ---
1440 tolerated iv fluids without any issues. IV dc'd from rt arm, catheter intact site clear. cottonball applied, secured with coban. Released per wheelchair to private auto.
== END 2024-07-10 23:59 | disposition home or self-care (01) ==
LOC: INF 12:17
PROVIDERS: PCP Family Medicine; Visit Provider Family Medicine
DX: E86.0 Dehydration (principal)
CPT/HCPCS: 96360; 96361

== ENCOUNTER 2024-07-23 15:20 | Outpatient (OUT) | payer MEDICARE, SELFPAY ==
--- OUTSIDE RECORDS SUMMARY | 2024-07-23 15:34 | XMS_ITS | CCD ---
Author Organization [facility] Providers Care Deburr Technician Name Role Phone PHYSICIAN, DEFAULT Admitting Unavailable [...] Unavailable HOY ., DR BLANKENSHIP Admmilton Unavailable EUCLID, DR GODWIN Cardona Consulting Unavailable HOY ., [...] BLANKENSHIP Primary Care Unavailable HOY ., DR BLANKENHSIP Admitting Unavailable HOY ., DR BLANKENSHIP Attending [...] DONNA ., DR BLANKENSHIP Primary Care Unavailable HOY ., DR BLANKENSHIP Admitting Unavailable HOY ., DR BLANKENSHIP Consulting Unavailable JASONY ., DR BLANKENSHIP Attending Unavailable DONNA ., DR BLANKENSHIP Primary Care Unavailable MD Ben Sanchez Attending Provider MD Krzysztof Harp Primary Care Provider [phone] Ben Sanchez Admitting Unavailable Ben Sanchez Attending Unavailable Krzysztof Harp M Primary Care Unavailable Ben Sanchez Admitting Unavailable Ben Sanchez Attending Unavailable Krzysztof Harp M Primary Care Unavailable JASONY, KRZYSZTOF M Primary Care Unavailable FREEMAN WARD Attending Unavailab Krzysztof Martin MD Primary Care Provider [phone] Raven Sesay DO Unavailable KRZYSZTOF HARP Referring Unavailable HOY, KRZYSZTOF M Primary Care Unavailable HOY KRZYSZTOF M Referring Unavailable HOY, KRZYSZTOF M Primary Care Unavailable NAVI CARCAMO Attending Unavailable KRZYSZTOF HARP M Referring Unavailable HOY, KRZYSZTOF M Primary Care Unavailable DARSHAN HERNANDEZ Attending Unavailable MREYL, CLEVE Arguelles Attending Unavailable MERYLCLEVE Attending Unavailable MERYL, CLEVE Arguelles Attending Unavailable CLEVE SHETH Referring Unavailable CLEVE SHETH Referring Unavailable CLEVE SHETH Attending Unavailable RAVEN SESAY Attending Unavailable MERYL, CLEVE Arguelles Referring Unavailable MERYLCLEVE Attending Unavailable RAVEN SESAY Attending Unavailable Allergies Allergy Classification Reported Allergen(s) Allergy Type Date of Onset Reaction(s) Facility (7 sources) Morphine; 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: [MORPHINE] Drug Allergy 7 Vomiting [facility] Repository (4 sources) NSAIDs; 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: [NSAIDS (NON-STEROIDAL ANTI-INFLAMMATOR Y DRUG)] Drug allergy (disorder) 9 [facility] Repository (1 source) Penicillin Drug Allergy 9 [facility] Repository (1 source) predniSONE Drug Allergy 9 [facility] Repository (2 sources) Iodinated Contrast- Oral and IV Dye Drug allergy (disorder) 5 [facility] Repository (19 sources) Penicillins; 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: [PENICILLINS] Propensity to adverse reactions to drug (disorder) 5 Rash [facility] Repository (17 sources) IODINATED CONTRAST MEDIA; 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: [IODINATED CONTRAST MEDIA] Propensity to adverse reactions to drug (disorder) 3 Anaphylaxis [facility] Repository (1 source) levoFLOXacin Drug Allergy 3 [facility] Repository (1 source) meloxicam Drug Allergy 3 [facility] Repository (4 sources) NSAIDS (Non-Steroidal Anti-Inflamma; 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: [NSAIDS (Non-Steroidal Anti-Inflamma] Propensity to adverse reactions 4 Stomach Ulcer [facility] (1 source) Morphine Drug Allergy 4 [facility] Repository (2 sources) Contrast media; 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: [DYE] Propensity to adverse reactions to drug (disorder) 7 [facility] Repository (2 sources) MORPHOLINE ANALOGUES; 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: [MORPHOLINE ANALOGUES] Propensity to adverse reactions to drug (disorder) 7 [facility] Repository (11 sources) Morphine Drug Allergy 3 [facility] Healthcare (6 sources) Non-steroidal anti-inflammator y agent Propensity to adverse reactions 4 [facility] Medications Current Medications Medication Drug Class(es) Dates Sig (Normalized) Sig (Original) acetaminophen 500 mg oral tablet (11 sources) take 1 tablet by mouth every six hours as needed acetaminophen (Tylenol) 500 MG tablet Take 500 mg by mouth every 6 (six) hours if needed Active aspirin 81 mg delayed release oral tablet (13 sources) Platelet Aggregation Inhibitor, Nonsteroidal Anti-inflammatory Drug Start: 02-19-2024 take 81 mg by mouth once daily Aspirin Active 81 MG PO Daily February 19, 2024 12:00am atorvastatin 20 mg oral tablet (14 sources) HMG-CoA Reductase Inhibitor Start: 01-28-2024 take 20 mg by mouth once daily at bedtime Atorvastatin Active 20 MG PO Daily at bedtime January 28, 2024 12:00am take 1 tablet by mouth in the mo rning atorvastatin (Lipitor) 40 MG tablet Take 40 mg by mouth in the morning. Active clopidogrel 75 mg oral tablet (14 sources) P2Y12 Platelet Inhibitor Start: 01-28-2024 take [...] 9:15am metoprolol tartrate 25 mg oral tablet (11 sources) beta-Adrenergic Facundo Start: 03-27-2024 metoprolol tartrate (Lopressor) 25 MG tablet 03/27/2024 Active pantoprazole 40 mg delayed release oral tablet (16 sources) Proton Pump Inhibitor Start: 01-28-2024 End: 02-19-2024 Pantoprazole Active 40 MG PO Daily 30 February 19, 2024 9:26am Take 1 tablet orally 30 minutes before morning meal. salmon calcitonin 200 unt/actuat nasal spray (11 sources) Calcitonin Start: 06-17-2024 End: 08-14-2024 calcitonin, salmon, (Miacalcin) 200 UNIT/ACT nasal spray Indications: Closed fracture of multiple pubic rami, right, initial encounter (CMS/[facility]) Administer 1 spray into one nostril Daily 3.7 mL 07/15/2024 08/14/2024 Active Sod Picosulf-Mag Ox-Citric Ac (2 sources) [...] before colonoscopy. sucralfate 1000 mg oral tablet (16 sources) Aluminum Complex Start: 03-18-2024 take 1 [...] Date Documented Da te Episodic/Chronic Abdominal hernia (6 sources) Diaphragmatic hernia without obstruction or gangrene; [...] Onset: 09-25-2022 Chronic Congestive heart failure; nonhypertensive (16 sources) Unspecified diastolic (congestive) heart failure; 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: [Acute combined systolic (congestive) and diastolic (congestive) heart failure] Onset: 02-11-2010 Chronic Coronary atherosclerosis and other heart disease (11 sources) Coronary atherosclerosis; 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: [Atherosclerotic heart disease of upper [place] coronary artery without angina pectoris] Onset: 02-11-2010 05-24-2023 Chronic Deficiency and other anemia (1 source) Anemia, unspecified; 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: [ANEMIA UNSPECIFIED] Onset: 01-17-2023 Episodic Deficiency and other anemia (1 source) Iron deficiency anemia, unspecified; 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: [IRON DEFICIENCY ANEMIA UNSPECIFIED] Onset: 10-25-2022 Episodic Diabetes mellitus without complication (12 sources) Type 2 diabetes mellitus without complications; 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: [Diabetes mellitus without complication] Onset: 02-11-2010 05-24-2023 Chronic Diabetes mellitus without complication (2 sources) Prediabetes; 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: [Other abnormal glucose] Onset: 11-14-2022 Episodic Disorders of lipid metabolism (13 sources) Pure hypercholesterolemia , unspecified; 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: [Hyperlipidemia, unspecified] Onset: 03-18-2010 01-09-2024 Chronic Diverticulosis and diverticulitis (15 sources) Diverticulum of duodenum; 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: [Diverticulosis of small intestine without perforation or abscess without bleeding] Onset: 09-12-2018 02-19-2024 Chronic Esophageal disorders (13 sources) Gastro-esophageal reflux disease without esophagitis; 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: [Gastroesophageal reflux disease] Onset: 02-11-2010 05-24-2023 Chronic Essential hypertension (6 sources) Essential (primary) hypertension; 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: [ESSENTIAL (PRIMARY) HYPERTENSION] Onset: 11-19-2018 Chronic Fluid and electrolyte disorders (2 sources) Dehydration; 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: [Hyperkalemia] Onset: 10-25-2022 Episodic Gastroduodenal ulcer (except hemorrhage) (1 source) Personal history of peptic ulcer disease; 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: [Personal history of peptic ulcer disease] Onset: 07-16-2024 Episodic Genitourinary symptoms and ill-defined conditions (1 [...] 12-15-2022 Chronic Joint disorders and dislocations; trauma-related (11 sources) Derangement of right knee; 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: [Unspecified internal derangement of right knee] Onset: 01-09-2024 01-09-2024 Chronic Malaise and fatigue (1 source) Chronic fatigue, unspecified; 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: [CHRONIC FATIGUE UNSPECIFIED] Onset: 01-17-2023 Chronic Malaise and fatigue (4 sources) Other fatigue; 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: [OTHER FATIGUE] Onset: 11-13-2022 Episodic Nausea and vomiting (1 source) Vomiting, unspecified; 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: [Vomiting, unspecified] Onset: 07-16-2024 Episodic Nonspecific chest pain (5 sources) Chest pain, unspecified; 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: [CHEST PAIN UNSPECIFIED] Onset: 10-25-2022 Episodic Nutritional deficiencies (1 source) Vitamin D deficiency, unspecified; 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: [VITAMIN D DEFICIENCY UNSPECIFIED] Onset: 01-17-2023 Chronic Occlusion or stenosis of precerebral arteries (5 sources) Occlusion and stenosis of unspecified carotid artery; 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: [Occlusion and stenosis of bilateral carotid arteries] Onset: 05-30-2022 Chronic Osteoarthritis (12 sources) Unspecified osteoarthritis, unspecified site; Translations: [Osteoarthritis of left knee joint] Onset: 01-17-2023 01-09-2024 Chronic Osteoporosis (12 sources) Age-related osteoporosis without current pathological fracture; Translations: [Osteoporosis] Onset: 07-29-2013 01-09-2024 Chronic Other aftercare (2 sources) 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; Translations: [WELDER/INSTALLER (CURRENT) USE OF ASPIRIN] Onset: 11-19-2018 Episodic Other aftercare (1 source) Other detention (current) drug therapy; Translations: [OTH WELDER/INSTALLER CURRENT DRUG THERAPY] Onset: 01-17-2023 Episodic Other [...] Translations: [FIBROMYALGIA] Onset: 01-17-2023 Episodic Other fractures (4 sources) Fracture of multiple pubic rami; Translations: [Other specified fracture of right pubis, initial encounter for closed fracture] 06-17-2024 Episodic Other gastrointestinal disorders (2 sources) Irritable bowel syndrome; Translations: [Irritable bowel syndrome without diarrhea] 02-19-2024 Chronic Other gastrointestinal disorders (2 sources) Irritable bowel syndrome without diarrhea; Translations: [Irritable bowel syndrome] 02-19-2024 Chronic Other gastrointestinal disorders (1 source) Dysphagia, unspecified; Translations: [Dysphagia, unspecified] Onset: 07-16-2024 Episodic Other gastrointestinal disorders (1 source) Heartburn Onset: 07-16-2024 Episodic Other hematologic conditions (4 sources) Other [...] Onset: 11-25-2022 Chronic Other nervous system disorders (11 sources) Disorder of autonomic nervous system; Translations: [Disorder of the autonomic nervous system, unspecified] Onset: 02-11-2010 05-24-2023 Chronic Other nervous system disorders (1 source) Ataxia, unspecified; Translations: [ATAXIA UNSPECIFIED] Onset: 12-15-2022 Episodic Other nervous system disorders (3 sources) Paresthesia; Translations: [Paresthesia of skin] 07-14-2024 Episodic Other non-traumatic joint disorders (1 source) Pain in left ankle and joints of left foot; Translations: [PAIN IN LEFT ANKLE] Onset: 01-17-2023 Episodic Other non-traumatic joint disorders (1 source) Pain in left hip; Translations: [Pain in left hip] Onset: 06-13-2024 Episodic Other non-traumatic joint disorders (5 sources) Hip pain; Translations: [Pain in right [...] Onset: 10-19-2022 Episodic Pancreatic disorders (not diabetes) (12 sources) Other chronic pancreatitis; Translations: [Chronic pancreatitis] Onset: 05-02-2017 05-24-2023 Chronic Pathological fracture (4 sources) Stress fracture of sacrum; Translations: [Pathological [...] unspecified; Translations: [EDEMA UNSPECIFIED] Onset: 10-25-2022 Episodic Spondylosis; intervertebral disc disorders; other back problems (11 sources) Degeneration of lumbar intervertebral disc; Translations: [Degeneration of lumbar intervertebral disc] Onset: 05-27-2010 05-24-2023 Chronic Spondylosis; intervertebral disc disorders; other back problems (1 source) Cervical radiculopathy; Translations: [Radiculopathy, cervical region] 07-17-2024 Episodic Unclassified (2 sources) ABN STRESS Onset: [...] Episodic/Chronic Other bone disease and musculoskeletal deformities (11 sources) Costal chondritis; Translations: [Chondrocostal junction syndrome [Tietze]] Onset: 05-24-2023 05-24-2023 Episodic Other gastrointestinal disorders (4 sources) Constipation, unspecified; Translations: [CONSTIPATION UNSPECIFIED] Onset: 02-14-2022 Episodic Other nervous system disorders (4 sources) Dysarthria and anarthria; Translations: [DYSARTHRIA AND ANARTHRIA] Onset: 05-26-2022 Episodic Residual codes; unclassified (1 source) Pain, unspecified; Translations: [Pain, unspecified] Onset: 01-07-2024 Episodic Results Test Name Value Interpretation Reference Range Facility EMG 1 Extremeityon 4 C8 radiculopathy on the left, moderate [facility] NVC 5-6 Nerveson 07-17-2024 C8 radiculopathy on the left, moderate [facility] XR HIP LT 2-3 VIEWS W OR WO PELVISon 06-13-2024 XR HIP LT 2-3 VIEWS W OR WO PELVIS XR HIP LT 2-3 VIEWS W OR WO PELVIS XR HIP LT 2-3 VIEWS W OR WO PELVIS 06/13/2024 9:57 PM INDICATION: Pain, left hip pain COMPARISON: CT abdomen and pelvis were 182 TECHNIQUE: Frontal pelvis and frontal/lateral hip view(s) [...] Muller MD on 06/13/2024 10:24 PM Normal [facility] XR SPINE LUMBAR 2 OR 3 VWSon [...] Gonzales MD on 06/13/2024 10:20 PM Normal [facility] MR HIP RIGHT WO IV CONTRASTo n 06-12-2024 MR HIP RIGHT WO IV CONTRAST EXAM: [...] [facility] US AYESHA DOP LEG LTon 01-16-20 US [...] DANIEL MARIE Date: 2023-01-15 08:25 Normal [facility] XR ANKLE LT MIN 3 Von [...] GONZALEZ PATEL Date: 2023-01-15 07:28 Normal [facility] VITAMIN B1 (THIAMINE)on 05-0 6-2023 Vit. B1, Whole Blood 118.1 nmol/L Normal 66.5-200.0 [facility] Comment on above: Performed By: #### C BC #### [facility] [address] [place] [address] Dr. Ekta Funk BNPon 01-10-2023 Natriuretic peptide B (Bld) [Mass/Vol] 980.0 pg/mL Critically high <=900.0 [facility] Comment on above: Performed By: #### C VDTBH #### [facility] [address] [place] [address] Dr. Ekta Funk CBC AUTO DIFFon 01-10-2023 BASO # 0.1 103/ul Normal 0.0-0.1 [facility] Comment on above: Performed By: #### C MP #### [facility] [address] [place] [address] Dr. Ekta Funk Basophils/100 WBC (Bld) 1.0 % Normal 0.2-2.0 [facility] Comment on above: Performed By: #### C MP #### [facility] [address] [place] [address] Dr. Ekta Funk EO # 0.4 103/ul Normal 0.0-0.7 [facility] Comment on above: Performed By: #### C MP #### [facility] [address] [place] [address] Dr. Ekta Funk Eosinophils/100 WBC (Bld) 3.7 % Normal 0.9-7.0 [facility] Comment on above: Performed By: #### C MP #### [facility] [address] [place] [address] Dr. Ekta Funk Erythrocyte distribution width (RBC) [Ratio] 13.2 % Normal 11.0-15.0 [facility] Comment on above: Performed By: #### C MP #### [facility] [address] [place] [address] Dr. Ekta Funk Hematocrit (Bld) [Volume fraction] 35.1 % Critically low 36.0-48.0 [facility] Comment on above: Performed By: #### C MP #### [facility] [address] [address] [address] Ekta Funk Hemoglobin (Bld) [Mass/Vol] 11.3 g/dL Critically low 12.0-16.0 [facility] Comment on above: Performed By: #### C MP #### [facility] [address] [address] [address] Ekta Funk IG # 0.04 10e3/ul Critically high 0.00-0.03 [facility] Comment on above: Performed By: #### C MP #### [facility] [address] [address] [address] Ekta Funk IG % 0.4 % Normal 0.0-0.5 [facility] Comment on above: Performed By: #### C MP #### [facility] [address] [place] [address] Dr. Ekta Funk LYMPH # 2.0 103/ul Normal 1.2-3.8 [facility] Comment on above: Performed By: #### C MP #### [facility] [address] [place] [address] Dr. Ekta Funk Lymphocytes/100 WBC (Bld) 20.8 % Normal 20.5-60.0 [facility] Comment on above: Performed By: #### C MP #### [facility] [address] [place] [address] Dr. Ekta Funk MANUAL DIFF REQ NO Normal [facility] Comment on above: Performed By: #### C MP #### [facility] [address] [address] [address] Ekta Funk MCH (RBC) [Entitic mass] 32.3 pg Normal 26.7-34.0 [facility] Comment on above: Performed By: #### C MP #### [facility] [address] [place] [address] Dr. Ekta Funk MCHC (RBC) [Mass/Vol] 32.2 g/dL Normal 29.9-35.2 [facility] Comment on above: Performed By: #### C MP #### [facility] [address] [place], [place] [id number] Dr. Ekta Funk MCV (RBC) [Entitic vol] 100.3 fL Critically high 81.0-99.0 [facility] Comment on above: Performed By: #### C MP #### [facility] [address] [place] [address] Dr. Ekta Funk MONO # 0.8 103/ul Normal 0.3-0.8 [facility] Comment on above: Performed By: #### C MP #### [facility] [address] [place] [address] Dr. Ekta Funk Monocytes/100 WBC (Bld) 7.9 % Normal 1.7-12.0 [facility] Comment on above: Performed By: #### C MP #### [facility] [address] [place] [address] Dr. Ekta Funk NEUT # 6.4 103/ul Normal 1.4-6.5 [facility] Comment on above: Performed By: #### C MP #### [facility] [address] [place] [address] Dr. Ekta Funk Neutrophils/100 WBC (Bld) 66.2 % Normal 43.0-75.0 [facility] Comment on above: Performed By: #### C MP #### [facility] [address] [place] [address] Dr. Ekta Funk Platelet mean volume (Bld) [Entitic vol] 9.6 fL Normal 9.5-13.5 [facility] Comment on above: Performed By: #### C MP #### [facility] [address] [place] [address] Dr. Ekta Funk PLT 255 103/ul Normal 150-450 [facility] Comment on above: Performed By: #### C MP #### [facility] [address] [place] [address] Dr. Ekta Funk RBC 3.50 106/ul Critically low 4.20-5.40 [facility] Comment on above: Performed By: #### C MP #### [facility] [address] [place] [address] Dr. Ekta Funk WBC 9.7 103/ul Normal 4.0-11.0 [facility] Comment on above: Performed By: #### C MP #### [facility] [address] [place] [address] Dr. Ekta Funk CRPon 01-10-2023 CRP [Mass/Vol] mg/L Normal <=1.0 [facility] Comment on above: Performed By: #### C BC #### [facility] [address] [place] [address] Dr. Ekta Funk FREE THYROXINE INDEX T7on FTI 2.62 Normal 1.30-4.50 [facility] Comment on above: Performed By: #### C BC #### [facility] [address] [place] [address] Dr. Ekta Funk T3U 32.0 % Normal 30.0-39.0 [facility] Comment on above: Performed By: #### C BC #### [facility] [address] [place] [address] Dr. Ekta Funk T4 [Mass/Vol] 8.20 ug/dL Normal 4.80-13.90 [facility] Comment on above: Performed By: #### C BC #### [facility] [address] [place] [address] Dr. Ekta Funk IRONon 01-10-2023 Iron [Mass/Vol] 61.0 ug/dL Normal 50.0-170.0 [facility] Comment on above: Performed By: #### B 12FOL, VITAD, IRON #### [facility] [address] [place] [address] Dr. Ekta Funk PROF 14(COMP METB)on 023 Albumin [Mass/Vol] 2.9 g/dL Critically low 3.4-5.0 [facility] Comment on above: Performed By: #### C VDTBH #### [facility] [address] [place] [address] Dr. Ekta Funk Albumin/Globulin [Mass ratio] 0.6 {ratio} Normal [facility] Comment on above: Performed By: #### C VDTBH #### [facility] [address] [address] [address] Ekta Funk ALP [Catalytic activity/Vol] 101 U/L Normal 46-116 [facility] Comment on above: Performed By: #### C VDTBH #### [facility] [address] [address] [address] Ekta Funk ALT [Catalytic activity/Vol] 16 U/L Normal 14-59 [facility] Comment on above: Performed By: #### C VDTBH #### [facility] [address] [address] [address] Ekta Funk Anion gap [Moles/Vol] 14.6 mmol/L Normal [facility] Comment on above: Performed By: #### C VDTBH #### [facility] [address] [place] [address] Dr. Ekta Funk AST [Catalytic activity/Vol] 15 U/L Normal 15-37 [facility] Comment on above: Performed By: #### C VDTBH #### [facility] [address] [place] [address] Dr. Ekta Funk Bilirubin [Mass/Vol] 0.4 mg/dL Normal 0.2-1.0 [facility] Comment on above: Performed By: #### C VDTBH #### [facility] [address] [place] [address] Dr. Ekta Funk Calcium [Mass/Vol] 9.2 mg/dL Normal 8.5-10.1 [facility] Comment on above: Performed By: #### C VDTBH #### [facility] [address] [address] [address] Ekta Funk Chloride [Moles/Vol] 107 mmol/L Normal 98-107 [facility] Comment on above: Performed By: #### C VDTBH #### [facility] [address] [address] [address] Ekta Funk CO2 [Moles/Vol] 24.4 mmol/L Normal 21.0-32.0 [facility] Comment on above: Performed By: #### C VDTBH #### [facility] [address] [address] [address] Ekta Funk Creatinine [Mass/Vol] 2.02 mg/dL Critically high 0.55-1.02 [facility] Comment on above: Performed By: #### C VDTBH #### [facility] [address] [address] [address] Ekta Funk EGFR-AF CANADIAN 29 mL/min/1.73m2 Critically low >=60 [facility] Comment on above: Performed By: #### C VDTBH #### [facility] [address] [address] [address] Ekta Funk EGFR-NON AF CANADIAN 24 mL/min/1.73m2 Critically low >=60 [facility] Comment on above: Performed By: #### C VDTBH #### [facility] [address] [place] [address] Dr. Ekta Funk Globulin (S) [Mass/Vol] 4.5 g/dL Normal [facility] Comment on above: Performed By: #### C VDTBH #### [facility] [address] [address] [address] Ekta Funk Glucose [Mass/Vol] 103 mg/dL Normal 74-106 [facility] Comment on above: Performed By: #### C VDTBH #### [facility] [address] [place] [address] Dr. Ekta Funk Potassium [Moles/Vol] 5.0 mmol/L Normal 3.5-5.1 [facility] Comment on above: Performed By: #### C VDTBH #### [facility] [address] [address] [address] Ekta Funk Protein [Mass/Vol] 7.4 g/dL Normal 6.4-8.2 [facility] Comment on above: Performed By: #### C VDTBH #### [facility] [address] [address] [address] Ekta Funk Sodium [Moles/Vol] 141 mmol/L Normal 136-145 [facility] Comment on above: Performed By: #### C VDTBH #### [facility] [address] [place] [address] Dr. Ekta Funk Urea nitrogen [Mass/Vol] 23.0 mg/dL Critically high 7.0-18.0 [facility] Comment on above: Performed By: #### C VDTBH #### [facility] [address] [place] [address] Dr. Ekta Funk Urea nitrogen/Creatinine [Mass ratio] 11.4 mg/mg Normal [facility] Comment on above: Performed By: #### C VDTBH #### [facility] [address] [place] [address] Dr. Ekat Funk TSHon 01-10-2023 TSH 1.793 uIU/mL Normal 0.358-3.740 [facility] Comment on above: Performed By: #### C VDTBH #### [facility] [address] [place] [address] Dr. Ekta Funk VIT B12 AND FOLATEon 023 Cobalamin (Vitamin B12) [Mass/Vol] 175.0 pg/mL Critically low 193.0-986.0 [facility] Comment on above: Performed By: #### B 12FOL, VITAD, IRON #### [facility] [address] [place] [address] Dr. Ekta Funk FOLATE 10.30 ng/mL Normal 8.60-58.90 [facility] Comment on above: Performed By: #### B 12FOL, VITAD, IRON #### [facility] [address] [place] [address] Dr. Ekta Funk VITAMIN D 25 OHon 01-10-2023 VIT D 25-OH 24.0 ng/mL Normal [facility] Comment on above: Performed By: #### B 12FOL, VITAD, IRON #### [facility] [address] [place] [address] Dr. Ekta Funk VIT D RANGES SEE BELOW Normal [facility] Comment on above: Result Comment: <20 ng/mL Vit D deficient 20 - <30 ng/mL Vit D insufficient 30 - 100 ng/mL Vit D sufficient >100 ng/mL Potential Toxicity Performed By: #### B 12FOL, VITAD, IRON #### [facility] [address] [place] [address] Dr. Ekta Funk Office Visiton 12-15-2022 Follow-up visit [id number] Sheila Mac 1950 F Date Provider Department Center 12/15/2022 [id number] RIVERA [facility] No family history on file Level of Service:90452 [place] OFFICE/OUTPATIENT ESTABLISHED MOD MDM 30-39 MIN Reason for Visit and Comments: Follow-up [264833] - Is here f/u stress test pt states she had Bruises all over both legs symptoms stated a week ago also stated legs are swollen and burning Normal [facility] NM STRESS/REST MULTIon 12-05 NM STRESS/REST MULTI Patient: SHEILA MAC Exam Date: 12/05/2022 : 1950 Gender:F Ordering : DR KRZYSZTOF HARP . Admission #: [id number] Family : Order #: [id number] CLICK HERE TO VIEW EXAM RADIOLOGY REPORT [...] Marie M.D. on 12/06/2022 at 07:26 Normal [facility] ECHOCARDIO M/2D COMPLETEon 0 11-27-2022 ECHOCARDIO M/2D COMPLETE Patient: SHEILA MAC Exam Date: 11/27/2022 : 1950 Gender:F Ordering : DR KRZYSZTOF HARP . Admission #: [id number] Family : Order #: [id number] CLICK HERE TO VIEW EXAM ECHOCARDIOGRAM REPORT [...] M.D. on 11/27/2022 at 14:39 Normal [facility] CBC AUTO DIFFon 11-26-2022 BASO # 0.0 103/ul Normal 0.0-0.1 [facility] Comment on above: Performed By: #### I NSULIN #### [facility] [address] [address] [address] Ekta Funk Basophils/100 WBC (Bld) 0.6 % Normal 0.2-2.0 [facility] Comment on above: Performed By: #### I NSULIN #### [facility] [address] [address] [address] Ekta Funk EO # 0.3 103/ul Normal 0.0-0.7 [facility] Comment on above: Performed By: #### I NSULIN #### [facility] [address] [place] [address] Dr. Ekta Funk Eosinophils/100 WBC (Bld) 4.8 % Normal 0.9-7.0 [facility] Comment on above: Performed By: #### I NSULIN #### [facility] [address] [address] [address] Ekta Funk Erythrocyte distribution width (RBC) [Ratio] 13.3 % Normal 11.0-15.0 [facility] Comment on above: Performed By: #### I NSULIN #### [facility] [address] [place] [address] Dr. Ekta Funk Hematocrit (Bld) [Volume fraction] 29.1 % Critically low 36.0-48.0 [facility] Comment on above: Performed By: #### I NSULIN #### [facility] [address] [address] [address] Ekta Funk Hemoglobin (Bld) [Mass/Vol] 9.5 g/dL Critically low 12.0-16.0 [facility] Comment on above: Performed By: #### I NSULIN #### [facility] [address] [address] [address] Ekta Funk IG # 0.07 10e3/ul Critically high 0.00-0.03 [facility] Comment on above: Performed By: #### I NSULIN #### [facility] [address] [address] [address] Ekta Funk IG % 1.0 % Critically high 0.0-0.5 [facility] Comment on above: Performed By: #### I NSULIN #### [facility] [address] [address] [address] Ekta Funk LYMPH # 1.2 103/ul Normal 1.2-3.8 [facility] Comment on above: Performed By: #### I NSULIN #### [facility] [address] [place] [address] Dr. Ekta Funk Lymphocytes/100 WBC (Bld) 17.2 % Critically low 20.5-60.0 [facility] Comment on above: Performed By: #### I NSULIN #### [facility] [address] [place] [address] Dr. Ekta Funk MANUAL DIFF REQ NO Normal [facility] Comment on above: Performed By: #### I NSULIN #### [facility] [address] [place] [address] Dr. Ekta Funk MCH (RBC) [Entitic mass] 31.7 pg Normal 26.7-34.0 [facility] Comment on above: Performed By: #### I NSULIN #### [facility] [address] [place] [address] Dr. Ekta Funk MCHC (RBC) [Mass/Vol] 32.6 g/dL Normal 29.9-35.2 [facility] Comment on above: Performed By: #### I NSULIN #### [facility] [address] [place] [address] Dr. Ekta Funk MCV (RBC) [Entitic vol] 97.0 fL Normal 81.0-99.0 [facility] Comment on above: Performed By: #### I NSULIN #### [facility] [address] [place] [address] Dr. Ekta Funk MONO # 0.8 103/ul Normal 0.3-0.8 [facility] Comment on above: Performed By: #### I NSULIN #### [facility] [address] [address] [address] Ekta Funk Monocytes/100 WBC (Bld) 11.1 % Normal 1.7-12.0 [facility] Comment on above: Performed By: #### I NSULIN #### [facility] [address] [address] [address] Ekta Funk NEUT # 4.5 103/ul Normal 1.4-6.5 [facility] Comment on above: Performed By: #### I NSULIN #### [facility] [address] [address] [address] Ekta Funk Neutrophils/100 WBC (Bld) 65.3 % Normal 43.0-75.0 [facility] Comment on above: Performed By: #### I NSULIN #### [facility] [address] [place] [address] Dr. Ekta Funk Platelet mean volume (Bld) [Entitic vol] 9.4 fL Critically low 9.5-13.5 [facility] Comment on above: Performed By: #### I NSULIN #### [facility] [address] [place] [address] Dr. Ekta Funk PLT 263 103/ul Normal 150-450 [facility] Comment on above: Performed By: #### I NSULIN #### [facility] [address] [place] [address] Dr. Ekta Funk RBC 3.00 106/ul Critically low 4.20-5.40 [facility] Comment on above: Performed By: #### I NSULIN #### [facility] [address] [place] [address] Dr. Ekta Funk WBC 6.9 103/ul Normal 4.0-11.0 [facility] Comment on above: Performed By: #### I NSULIN #### [facility] [address] [place] [address] Dr. Ekta Funk PROF 14(COMP METB)on 023 Albumin [Mass/Vol] 2.2 g/dL Critically low 3.4-5.0 [facility] Comment on above: Performed By: #### C MP #### [facility] [address] [place] [address] Dr. Ekta Funk Albumin/Globulin [Mass ratio] 0.6 {ratio} Normal [facility] Comment on above: Performed By: #### C MP #### [facility] [address] [address] [address] Ekta Funk ALP [Catalytic activity/Vol] 82 U/L Normal 46-116 [facility] Comment on above: Performed By: #### C MP #### [facility] [address] [place] [address] Dr. Ekta Funk ALT [Catalytic activity/Vol] 13 U/L Critically low 14-59 [facility] Comment on above: Performed By: #### C MP #### [facility] [address] [place] [address] Dr. Ekta Funk Anion gap [Moles/Vol] 14.0 mmol/L Normal [facility] Comment on above: Performed By: #### C MP #### [facility] [address] [place] [address] Dr. Ekta Funk AST [Catalytic activity/Vol] 18 U/L Normal 15-37 [facility] Comment on above: Performed By: #### C MP #### [facility] [address] [place] [address] Dr. Ekta Funk Bilirubin [Mass/Vol] 0.4 mg/dL Normal 0.2-1.0 [facility] Comment on above: Performed By: #### C MP #### [facility] [address] [place] [address] Dr. Ekta Funk Calcium [Mass/Vol] 8.6 mg/dL Normal 8.5-10.1 [facility] Comment on above: Performed By: #### C MP #### [facility] [address] [place] [address] Dr. Ekta Funk Chloride [Moles/Vol] 108 mmol/L Critically high 98-107 [facility] Comment on above: Performed By: #### C MP #### [facility] [address] [place] [address] Dr. Ekta Funk CO2 [Moles/Vol] 19.6 mmol/L Critically low 21.0-32.0 [facility] Comment on above: Performed By: #### C MP #### [facility] [address] [address] [address] Ekta Funk Creatinine [Mass/Vol] 1.70 mg/dL Critically high 0.55-1.02 [facility] Comment on above: Performed By: #### C MP #### [facility] [address] [address] [address] Ekta Funk EGFR-AF CANADIAN 36 mL/min/1.73m2 Critically low >=60 [facility] Comment on above: Performed By: #### C MP #### [facility] [address] [address] [address] Ekta Funk EGFR-NON AF CANADIAN 29 mL/min/1.73m2 Critically low >=60 [facility] Comment on above: Performed By: #### C MP #### [facility] [address] [address] [address] Ekta Funk Globulin (S) [Mass/Vol] 3.6 g/dL Normal [facility] Comment on above: Performed By: #### C MP #### [facility] [address] [address] [address] Ekta Funk Glucose [Mass/Vol] 103 mg/dL Normal 74-106 [facility] Comment on above: Performed By: #### C MP #### [facility] [address] [address] [address] Ekta Funk Potassium [Moles/Vol] 4.6 mmol/L Normal 3.5-5.1 [facility] Comment on above: Performed By: #### C MP #### [facility] [address] [address] [address] Ekta Funk Protein [Mass/Vol] 5.8 g/dL Critically low 6.4-8.2 [facility] Comment on above: Performed By: #### C MP #### [facility] [address] [address] [address] Ekta Funk Sodium [Moles/Vol] 137 mmol/L Normal 136-145 [facility] Comment on above: Performed By: #### C MP #### [facility] [address] [place] [address] Dr. Ekta Funk Urea nitrogen [Mass/Vol] 26.0 mg/dL Critically high 7.0-18.0 [facility] Comment on above: Performed By: #### C MP #### [facility] [address] [place] [address] Dr. Ekta Funk Urea nitrogen/Creatinine [Mass ratio] 15.3 mg/mg Normal [facility] Comment on above: Performed By: #### C MP #### [facility] [address] [place] [address] Dr. Ekta Funk CBC AUTO DIFFon 11-25-2022 BASO # 0.1 103/ul Normal 0.0-0.1 [facility] Comment on above: Performed By: #### C BC #### [facility] [address] [place] [address] Dr. Ekta Funk Basophils/100 WBC (Bld) 0.7 % Normal 0.2-2.0 [facility] Comment on above: Performed By: #### C BC #### [facility] [address] [place] [address] Dr. Ekta Funk EO # 0.3 103/ul Normal 0.0-0.7 [facility] Comment on above: Performed By: #### C BC #### [facility] [address] [place] [address] Dr. Ekta Funk Eosinophils/100 WBC (Bld) 3.4 % Normal 0.9-7.0 [facility] Comment on above: Performed By: #### C BC #### [facility] [address] [place] [address] Dr. Ekta Funk Erythrocyte distribution width (RBC) [Ratio] 13.6 % Normal 11.0-15.0 [facility] Comment on above: Performed By: #### C BC #### [facility] [address] [place] [address] Dr. Ekta Funk Hematocrit (Bld) [Volume fraction] 32.1 % Critically low 36.0-48.0 [facility] Comment on above: Performed By: #### C BC #### [facility] [address] [place] [address] Dr. Ekta Funk Hemoglobin (Bld) [Mass/Vol] 10.3 g/dL Critically low 12.0-16.0 [facility] Comment on above: Performed By: #### C BC #### [facility] [address] [place] [address] Dr. Ekta Funk IG # 0.08 10e3/ul Critically high 0.00-0.03 [facility] Comment on above: Performed By: #### C BC #### [facility] [address] [place] [address] Dr. Ekta Funk IG % 0.9 % Critically high 0.0-0.5 [facility] Comment on above: Performed By: #### C BC #### [facility] [address] [place] [address] Dr. Ekta Funk LYMPH # 0.9 103/ul Critically low 1.2-3.8 [facility] Comment on above: Performed By: #### C BC #### [facility] [address] [place] [address] Dr. Ekta Funk Lymphocytes/100 WBC (Bld) 10.7 % Critically low 20.5-60.0 [facility] Comment on above: Performed By: #### C BC #### [facility] [address] [place] [address] Dr. Ekta Funk MANUAL DIFF REQ NO Normal [facility] Comment on above: Performed By: #### C BC #### [facility] [address] [place] [address] Dr. Ekta Funk MCH (RBC) [Entitic mass] 32.2 pg Normal 26.7-34.0 [facility] Comment on above: Performed By: #### C BC #### [facility] [address] [place] [address] Dr. Ekta Funk MCHC (RBC) [Mass/Vol] 32.1 g/dL Normal 29.9-35.2 [facility] Comment on above: Performed By: #### C BC #### [facility] [address] [place] [address] Dr. Ekta Funk MCV (RBC) [Entitic vol] 100.3 fL Critically high 81.0-99.0 [facility] Comment on above: Performed By: #### C BC #### [facility] [address] [address] [address] Ekta Funk MONO # 0.9 103/ul Critically high 0.3-0.8 [facility] Comment on above: Performed By: #### C BC #### [facility] [address] [place] [address] Dr. Ekta Funk Monocytes/100 WBC (Bld) 9.9 % Normal 1.7-12.0 [facility] Comment on above: Performed By: #### C BC #### [facility] [address] [place] [address] Dr. Ekta Funk NEUT # 6.4 103/ul Normal 1.4-6.5 [facility] Comment on above: Performed By: #### C BC #### [facility] [address] [place] [address] Dr. Ekta Funk Neutrophils/100 WBC (Bld) 74.4 % Normal 43.0-75.0 [facility] Comment on above: Performed By: #### C BC #### [facility] [address] [place] [address] Dr. Ekta Funk Platelet mean volume (Bld) [Entitic vol] 9.5 fL Normal 9.5-13.5 [facility] Comment on above: Performed By: #### C BC #### [facility] [address] [place] [address] Dr. Ekta Funk PLT 267 103/ul Normal 150-450 [facility] Comment on above: Performed By: #### C BC #### [facility] [address] [place] [address] Dr. Ekta Funk RBC 3.20 106/ul Critically low 4.20-5.40 [facility] Comment on above: Performed By: #### C BC #### [facility] [address] [place] [address] Dr. Ekta Funk WBC 8.6 103/ul Normal 4.0-11.0 [facility] Comment on above: Performed By: #### C BC #### [facility] [address] [address] [address] Ekta Funk BASO # 0.1 103/ul Normal 0.0-0.1 [facility] Comment on above: Performed By: #### C MP #### [facility] [address] [place] [address] Dr. Ekta Funk Basophils/100 WBC (Bld) 0.7 % Normal 0.2-2.0 [facility] Comment on above: Performed By: #### C MP #### [facility] [address] [place] [address] Dr. Ekta Funk EO # 0.3 103/ul Normal 0.0-0.7 [facility] Comment on above: Performed By: #### C MP #### [facility] [address] [place] [address] Dr. Ekta Funk Eosinophils/100 WBC (Bld) 3.9 % Normal 0.9-7.0 [facility] Comment on above: Performed By: #### C MP #### [facility] [address] [place] [address] Dr. Ekta Funk Erythrocyte distribution width (RBC) [Ratio] 13.2 % Normal 11.0-15.0 [facility] Comment on above: Performed By: #### C MP #### [facility] [address] [place] [address] Dr. Ekta Funk Hematocrit (Bld) [Volume fraction] 28.0 % Critically low 36.0-48.0 [facility] Comment on above: Performed By: #### C MP #### [facility] [address] [place] [address] Dr. Ekta Funk Hemoglobin (Bld) [Mass/Vol] 9.3 g/dL Critically low 12.0-16.0 [facility] Comment on above: Performed By: #### C MP #### [facility] [address] [place] [address] Dr. Ekta Funk IG # 0.08 10e3/ul Critically high 0.00-0.03 [facility] Comment on above: Performed By: #### C MP #### [facility] [address] [place] [address] Dr. Ekta Funk IG % 1.1 % Critically high 0.0-0.5 [facility] Comment on above: Performed By: #### C MP #### [facility] [address] [place] [address] Dr. Ekta Funk LYMPH # 0.9 103/ul Critically low 1.2-3.8 [facility] Comment on above: Performed By: #### C MP #### [facility] [address] [place] [address] Dr. Ekta Funk Lymphocytes/100 WBC (Bld) 12.1 % Critically low 20.5-60.0 [facility] Comment on above: Performed By: #### C MP #### [facility] [address] [place] [address] Dr. Ekta Funk MANUAL DIFF REQ NO Normal [facility] Comment on above: Performed By: #### C MP #### [facility] [address] [place] [address] Dr. Ekta Funk MCH (RBC) [Entitic mass] 32.0 pg Normal 26.7-34.0 [facility] Comment on above: Performed By: #### C MP #### [facility] [address] [place] [address] Dr. Ekta Funk MCHC (RBC) [Mass/Vol] 33.2 g/dL Normal 29.9-35.2 [facility] Comment on above: Performed By: #### C MP #### [facility] [address] [place] [address] Dr. Ekta Funk MCV (RBC) [Entitic vol] 96.2 fL Normal 81.0-99.0 [facility] Comment on above: Performed By: #### C MP #### [facility] [address] [address] [address] Ekta Funk MONO # 0.7 103/ul Normal 0.3-0.8 [facility] Comment on above: Performed By: #### C MP #### [facility] [address] [address] [address] Ekta Funk Monocytes/100 WBC (Bld) 9.8 % Normal 1.7-12.0 [facility] Comment on above: Performed By: #### C MP #### [facility] [address] [address] [address] Ekta Funk NEUT # 5.2 103/ul Normal 1.4-6.5 [facility] Comment on above: Performed By: #### C MP #### [facility] [address] [place] [address] Dr. Ekta Funk Neutrophils/100 WBC (Bld) 72.4 % Normal 43.0-75.0 [facility] Comment on above: Performed By: #### C MP #### [facility] [address] [address] [address] Ekta Funk Platelet mean volume (Bld) [Entitic vol] 9.4 fL Critically low 9.5-13.5 [facility] Comment on above: Performed By: #### C MP #### [facility] [address] [address] [address] Ekta Funk PLT 250 103/ul Normal 150-450 [facility] Comment on above: Performed By: #### C MP #### [facility] [address] [address] [address] Ekta Funk RBC 2.91 106/ul Critically low 4.20-5.40 [facility] Comment on above: Performed By: #### C MP #### [facility] [address] [address] [address] Ekta Funk WBC 7.2 103/ul Normal 4.0-11.0 [facility] Comment on above: Performed By: #### C MP #### [facility] [address] [address] [address] Ekta Funk PROF 14(COMP METB)on 023 Albumin [Mass/Vol] 2.1 g/dL Critically low 3.4-5.0 [facility] Comment on above: Performed By: #### C MP #### [facility] [address] [place] [address] Dr. Ekta Funk Albumin/Globulin [Mass ratio] 0.6 {ratio} Normal [facility] Comment on above: Performed By: #### C MP #### [facility] [address] [place] [address] Dr. Ekta Funk ALP [Catalytic activity/Vol] 68 U/L Normal 46-116 [facility] Comment on above: Performed By: #### C MP #### [facility] [address] [place] [address] Dr. Ekta Funk ALT [Catalytic activity/Vol] 14 U/L Normal 14-59 [facility] Comment on above: Performed By: #### C MP #### [facility] [address] [place] [address] Dr. Ekta Funk Anion gap [Moles/Vol] 12.9 mmol/L Normal [facility] Comment on above: Performed By: #### C MP #### [facility] [address] [place] [address] Dr. Ekta Funk AST [Catalytic activity/Vol] 14 U/L Critically low 15-37 [facility] Comment on above: Performed By: #### C MP #### [facility] [address] [place] [address] Dr. Ekta Funk Bilirubin [Mass/Vol] 0.3 mg/dL Normal 0.2-1.0 [facility] Comment on above: Performed By: #### C MP #### [facility] [address] [place] [address] Dr. Ekta Funk Calcium [Mass/Vol] 8.3 mg/dL Critically low 8.5-10.1 [facility] Comment on above: Performed By: #### C MP #### [facility] [address] [address] [address] Ekta Funk Chloride [Moles/Vol] 109 mmol/L Critically high 98-107 [facility] Comment on above: Performed By: #### C MP #### [facility] [address] [address] [address] Ekta Funk CO2 [Moles/Vol] 19.3 mmol/L Critically low 21.0-32.0 [facility] Comment on above: Performed By: #### C MP #### [facility] [address] [address] [address] Ekta Funk Creatinine [Mass/Vol] 1.54 mg/dL Critically high 0.55-1.02 [facility] Comment on above: Performed By: #### C MP #### [facility] [address] [address] [address] Ekta Funk EGFR-AF CA[place]DIAN 40 mL/min/1.73m2 Critically low >=60 [facility] Comment on above: Performed By: #### C MP #### [facility] [address] [address] [address] Ekta Funk EGFR-NON AF [place] 33 mL/min/1.73m2 Critically low >=60 [facility] Comment on above: Performed By: #### C MP #### [facility] [address] [address] [address] Ekta Funk Globulin (S) [Mass/Vol] 3.7 g/dL Normal [facility] Comment on above: Performed By: #### C MP #### [facility] [address] [address] [address] Ekta Funk Glucose [Mass/Vol] 117 mg/dL Critically high 74-106 [facility] Comment on above: Performed By: #### C MP #### [facility] [address] [address] [address] Ekta Funk Potassium [Moles/Vol] 4.2 mmol/L Normal 3.5-5.1 [facility] Comment on above: Performed By: #### C MP #### [facility] [address] [place] [address] Dr. Ekta Funk Protein [Mass/Vol] 5.8 g/dL Critically low 6.4-8.2 [facility] Comment on above: Performed By: #### C MP #### [facility] [address] [place] [address] Dr. Ekta Funk Sodium [Moles/Vol] 137 mmol/L Normal 136-145 [facility] Comment on above: Performed By: #### C MP #### [facility] [address] [place] [address] Dr. Ekta Funk Urea nitrogen [Mass/Vol] 27.0 mg/dL Critically high 7.0-18.0 [facility] Comment on above: Performed By: #### C MP #### [facility] [address] [place] [address] Dr. Ekta Funk Urea nitrogen/Creatinine [Mass ratio] 17.5 mg/mg Normal [facility] Comment on above: Performed By: #### C MP #### [facility] [address] [place] [address] Dr. Ekta Funk AMMONIAon 11-24-2022 Ammonia (P) [Moles/Vol] 13 umol/L Normal 11-32 [facility] Comment on above: Performed By: #### C VDTB #### [facility] [address] [place] [address] Dr. Ekta Funk CBC AUTO DIFFon 11-24-2022 BASO # 0.0 103/ul Normal 0.0-0.1 [facility] Comment on above: Performed By: #### C MP #### [facility] [address] [place] [address] Dr. Ekta Funk Basophils/100 WBC (Bld) 0.4 % Normal 0.2-2.0 [facility] Comment on above: Performed By: #### C MP #### [facility] [address] [place] [address] Dr. Ekta Funk EO # 0.4 103/ul Normal 0.0-0.7 [facility] Comment on above: Performed By: #### C MP #### [facility] [address] [address] [address] Ekta Funk Eosinophils/100 WBC (Bld) 3.8 % Normal 0.9-7.0 [facility] Comment on above: Performed By: #### C MP #### [facility] [address] [address] [address] Ekta Funk Erythrocyte distribution width (RBC) [Ratio] 13.2 % Normal 11.0-15.0 [facility] Comment on above: Performed By: #### C MP #### [facility] [address] [place] [address] Dr. Ekta Funk Hematocrit (Bld) [Volume fraction] 34.0 % Critically low 36.0-48.0 [facility] Comment on above: Performed By: #### C MP #### [facility] [address] [place] [address] Dr. Ekta Funk Hemoglobin (Bld) [Mass/Vol] 11.5 g/dL Critically low 12.0-16.0 [facility] Comment on above: Performed By: #### C MP #### [facility] [address] [place] [address] Dr. Ekta Funk IG # 0.11 10e3/ul Critically high 0.00-0.03 [facility] Comment on above: Performed By: #### C MP #### [facility] [address] [place] [address] Dr. Ekta Funk IG % 1.2 % Critically high 0.0-0.5 [facility] Comment on above: Performed By: #### C MP #### [facility] [address] [place] [address] Dr. Ekta Funk LYMPH # 1.4 103/ul Normal 1.2-3.8 [facility] Comment on above: Performed By: #### C MP #### [facility] [address] [place] [address] Dr. Ekta Funk Lymphocytes/100 WBC (Bld) 14.9 % Critically low 20.5-60.0 [facility] Comment on above: Performed By: #### C MP #### [facility] [address] [place] [address] Dr. Ekta Funk MANUAL DIFF REQ NO Normal [facility] Comment on above: Performed By: #### C MP #### [facility] [address] [place] [address] Dr. Ekta Funk MCH (RBC) [Entitic mass] 32.5 pg Normal 26.7-34.0 [facility] Comment on above: Performed By: #### C MP #### [facility] [address] [place] [address] Dr. Ekta Funk MCHC (RBC) [Mass/Vol] 33.8 g/dL Normal 29.9-35.2 [facility] Comment on above: Performed By: #### C MP #### [facility] [address] [place] [address] Dr. Ekta Funk MCV (RBC) [Entitic vol] 96.0 fL Normal 81.0-99.0 [facility] Comment on above: Performed By: #### C MP #### [facility] [address] [place] [address] Dr. Ekta Funk MONO # 0.9 103/ul Critically high 0.3-0.8 [facility] Comment on above: Performed By: #### C MP #### [facility] [address] [place] [address] Dr. Ekta Funk Monocytes/100 WBC (Bld) 9.7 % Normal 1.7-12.0 [facility] Comment on above: Performed By: #### C MP #### [facility] [address] [place] [address] Dr. Ekta Funk NEUT # 6.4 103/ul Normal 1.4-6.5 [facility] Comment on above: Performed By: #### C MP #### [facility] [address] [place] [address] Dr. Ekta Funk Neutrophils/100 WBC (Bld) 70.0 % Normal 43.0-75.0 [facility] Comment on above: Performed By: #### C MP #### [facility] [address] [address] [address] Ekta Funk Platelet mean volume (Bld) [Entitic vol] 9.3 fL Critically low 9.5-13.5 [facility] Comment on above: Performed By: #### C MP #### [facility] [address] [address] [address] Ekta Funk PLT 308 103/ul Normal 150-450 [facility] Comment on above: Performed By: #### C MP #### [facility] [address] [address] [address] Ekta Funk RBC 3.54 106/ul Critically low 4.20-5.40 [facility] Comment on above: Performed By: #### C MP #### [facility] [address] [address] [address] Ekta Funk WBC 9.1 103/ul Normal 4.0-11.0 [facility] Comment on above: Performed By: #### C MP #### [facility] [address] [address] [address] Ekta Funk CPKon 11-24-2022 CK [Catalytic activity/Vol] 21 U/L Critically low 26-192 [facility] Comment on above: Performed By: #### B 12FOL, VITAD, IRON #### [facility] [id number] Ekta Funk CT STROKE HEAD WOon [...] by: VANESSA PARADA Date: 2022-11-24 11:09 Normal [facility] CTA HEAD WO W CONon 11-25-19 23 [...] DANIEL MARIE Date: 2022-11-24 12:41 Normal [facility] CULTURE URINEon 11-24-2022 CULTURE URINE Culture Observations : NO GROWTH. Normal [facility] Comment on above: Performed By: #### I NSULIN #### [facility] [address] [address] [address] Ekta Funk Covid-19 PCR ([facility])on 11-08 SARS-CoV-2 (COVID-19) RNA GANESH+probe Ql (Unsp spec) Not detected Normal NOT DETECTED [facility] Comment on above: Result Comment: When [...] for this test is supported by the [place] of Health and Human Service's declaration that [...] used). Performed By: #### C VDTBH #### [facility] [address] [address] [address] Ekta Funk ER URINE PROFILEon 3 Bilirubin Ql (U) Negative Normal NEGATIVE [facility] Comment on above: Performed By: #### C BC #### [facility] [address] [place] [address] Dr. Ekta Funk Clarity (U) CLEAR Normal CLEAR [facility] Comment on above: Performed By: #### C BC #### [facility] [address] [place] [address] Dr. Ekta Funk Color (U) LT. YELLOW Normal YELLOW [facility] Comment on above: Performed By: #### C BC #### [facility] [address] [place] [address] Dr. Ekta COLÓN A micrscopic examination will be performed if indicated. Normal [facility] Comment on above: Performed By: #### C BC #### [facility] [address] [place] [address] Dr. Ekat Funk Glucose Ql (U) Negative Normal NEGATIVE [facility] Comment on above: Performed By: #### C BC #### [facility] [address] [place] [address] Dr. Ekta Funk Hemoglobin Ql (U) Negative Normal NEGATIVE [facility] Comment on above: Performed By: #### C BC #### [facility] [address] [place] [address] Dr. Ekta Funk Ketones Ql (U) Negative Normal NEGATIVE [facility] Comment on above: Performed By: #### C BC #### [facility] [address] [place] [address] Dr. Ekta Funk LEUKOCYTES Negative Normal NEGATIVE [facility] Comment on above: Performed By: #### C BC #### [facility] [address] [place] [address] Dr. Ekta Funk Nitrite Ql (U) Negative Normal NEGATIVE [facility] Comment on above: Performed By: #### C BC #### [facility] [address] [place] [address] Dr. Ekta Funk pH (U) 5.5 [pH] Normal 5-9 [facility] Comment on above: Performed By: #### C BC #### [facility] [address] [address] [address] Ekta Funk SPEC GRAVITY 1.020 Normal 1.005-<=1.025 [facility] Comment on above: Performed By: #### C BC #### [facility] [address] [place] [address] Dr. Ekta Funk UA PROTEIN Negative Normal NEGATIVE/ TRACE [facility] Comment on above: Performed By: #### C BC #### [facility] [address] [address] [address] Ekta Funk UR MICRO IND NOT INDICATED Normal [facility] Comment on above: Performed By: #### C BC #### [facility] [address] [place] [address] Dr. Ekta Funk Urobilinogen Qn (U) 0.2 {Ivan'U}/dL Normal 0.2 - 1. 0 [facility] Comment on above: Performed By: #### C BC #### [facility] [address] [place] [address] Dr. Ekta Funk GLYCOHEMOGLOBIN A1Con 2022 ADA RECOMMENDATION SEE BELOW Normal [facility] Comment on above: Result Comment: ADA RECOMMENDED LIMIT 4.0 - 6.0 ADA THERAPEUTIC TARGET < 7.0 ACTION SUGGESTED > 7.0 Performed By: #### B 12FOL, VITAD, IRON #### [facility] [address] [place] [address] Dr. Ekta Funk Glucose [Mass/Vol] 143 mg/dL Normal [facility] Comment on above: Performed By: #### B 12FOL, VITAD, IRON #### [facility] [address] [place] [address] Dr. Ekta Funk HbA1c (Bld) [Mass fraction] 6.6 % Critically high 4.5-6.2 [facility] Comment on above: Performed By: #### B 12FOL, VITAD, IRON #### [facility] [address] [place] [address] Dr. Ekta Funk LACTATE/LACTIC ACIDon 2022 Lactate [Moles/Vol] 1.6 mmol/L Normal 0.4-2.0 [facility] Comment on above: Performed By: #### C MP #### [facility] [address] [place] [address] Dr. Ekta Funk Lactate [Moles/Vol] 2.1 mmol/L Critically high 0.4-2.0 [facility] Comment on above: Performed By: #### B 12FOL, VITAD, IRON #### [facility] [address] [place] [address] Dr. Ekta Funk LIPASEon 11-24-2022 Lipase [Catalytic activity/Vol] 165.0 U/L Normal 73.0-393.0 [facility] Comment on above: Performed By: #### B 12FOL, VITAD, IRON #### [facility] [address] [place] [address] Dr. Ekta Funk LIPID PROFILEon 11-24-2022 CHOL-HDL RATIO NORM SEE BELOW Normal [facility] Comment on above: Result Comment: 3.3 - 4.4 LOW RISK 4.4 - 7.1 AVERAGE RISK 7.1 - 11.0 MODERATE RISK >11.0 HIGH RISK Performed By: #### B 12FOL, VITAD, IRON #### [facility] [address] [place] [address] Dr. Ekta Funk Cholesterol [Mass/Vol] 248 mg/dL Critically high <=200 [facility] Comment on above: Performed By: #### B 12FOL, VITAD, IRON #### [facility] [address] [place] [address] Dr. Ekta Funk Cholesterol in HDL [Mass/Vol] 58 mg/dL Normal 40-60 [facility] Comment on above: Performed By: #### B 12FOL, VITAD, IRON #### [facility] [address] [place] [address] Dr. Ekta Funk Cholesterol in LDL [Mass/Vol] 165.6 mg/dL Normal [facility] Comment on above: Performed By: #### B 12FOL, VITAD, IRON #### [facility] [address] [place] [address] Dr. Ekta Funk Cholesterol.total/Ch olesterol in HDL [Mass ratio] 4.3 {ratio} Normal [facility] Comment on above: Performed By: #### B 12FOL, VITAD, IRON #### [facility] [address] [address] [address] Ekta Funk HDL NORMAL > or = 60 mg/dl - LO W CARDIOVASCULAR RISK <40 mg/dl - HIGH CARDIOVASCULAR RISK Normal [facility] Comment on above: Performed By: #### B 12FOL, VITAD, IRON #### [facility] [address] [address] [address] Ekta Funk LDL CALC NORMAL SEE BELOW Normal [facility] Comment on above: Result Comment: <100 mg/dl OPTIMAL 100 - 129 mg/dl NEAR OR ABOVE OPTIMAL 130 - 159 mg/dl BORDERLINE HIGH 160 - 189 mg/dl HIGH >190 mg/dl VERY HIGH Performed By: #### B 12FOL, VITAD, IRON #### [facility] [address] [address] [address] Ekta Funk Triglyceride [Mass/Vol] 122 mg/dL Normal <=150 [facility] Comment on above: Performed By: #### B 12FOL, VITAD, IRON #### [facility] [address] [address] [address] Ekta Funk VLDL CALC 24.4 mg/dL Normal [facility] Comment on above: Performed By: #### B 12FOL, VITAD, IRON #### [facility] [address] [place] [address] Dr. Ekta Funk MRI BRAIN WO CONon [...] RAVEN ELAINE Date: 2022-11-24 19:35 Normal [facility] PROF 14(COMP METB)on 023 Albumin [Mass/Vol] 2.7 g/dL Critically low 3.4-5.0 [facility] Comment on above: Performed By: #### B 12FOL, VITAD, IRON #### [facility] [address] [address] [address] Ekta Funk Albumin/Globulin [Mass ratio] 0.6 {ratio} Normal [facility] Comment on above: Performed By: #### B 12FOL, VITAD, IRON #### [facility] [address] [address] [address] Ekta Funk ALP [Catalytic activity/Vol] 85 U/L Normal 46-116 [facility] Comment on above: Performed By: #### B 12FOL, VITAD, IRON #### [facility] [address] [address] [address] Ekta Funk ALT [Catalytic activity/Vol] 18 U/L Normal 14-59 [facility] Comment on above: Performed By: #### B 12FOL, VITAD, IRON #### [facility] [address] [address] [address] Ekta Funk Anion gap [Moles/Vol] 18.9 mmol/L Normal [facility] Comment on above: Performed By: #### B 12FOL, VITAD, IRON #### [facility] [address] [address] [address] Ekta Funk AST [Catalytic activity/Vol] 16 U/L Normal 15-37 [facility] Comment on above: Performed By: #### B 12FOL, VITAD, IRON #### [facility] [address] [place] [address] Dr. Ekta Funk Bilirubin [Mass/Vol] 0.4 mg/dL Normal 0.2-1.0 [facility] Comment on above: Performed By: #### B 12FOL, VITAD, IRON #### [facility] [address] [place] [address] Dr. Ekta Funk Calcium [Mass/Vol] 9.5 mg/dL Normal 8.5-10.1 [facility] Comment on above: Performed By: #### B 12FOL, VITAD, IRON #### [facility] [address] [place] [address] Dr. Ekta Funk Chloride [Moles/Vol] 108 mmol/L Critically high 98-107 [facility] Comment on above: Performed By: #### B 12FOL, VITAD, IRON #### [facility] [address] [place] [address] Dr. Ekta Funk CO2 [Moles/Vol] 21.1 mmol/L Normal 21.0-32.0 [facility] Comment on above: Performed By: #### B 12FOL, VITAD, IRON #### [facility] [address] [place] [address] Dr. Ekta Funk Creatinine [Mass/Vol] 2.08 mg/dL Critically high 0.55-1.02 [facility] Comment on above: Performed By: #### B 12FOL, VITAD, IRON #### [facility] [address] [place] [address] Dr. Ekta Funk EGFR-AF CANADIAN 28 mL/min/1.73m2 Critically low >=60 [facility] Comment on above: Performed By: #### B 12FOL, VITAD, IRON #### [facility] [address] [place] [address] Dr. Ekta Funk EGFR-NON AF CANADIAN 23 mL/min/1.73m2 Critically low >=60 [facility] Comment on above: Performed By: #### B 12FOL, VITAD, IRON #### [facility] [address] [address] [address] Ekta Funk Globulin (S) [Mass/Vol] 4.6 g/dL Normal [facility] Comment on above: Performed By: #### B 12FOL, VITAD, IRON #### [facility] [address] [address] [address] Ekta Funk Glucose [Mass/Vol] 119 mg/dL Critically high 74-106 [facility] Comment on above: Performed By: #### B 12FOL, VITAD, IRON #### [facility] [address] [place] [address] Dr. Ekta Funk Potassium [Moles/Vol] 5.0 mmol/L Normal 3.5-5.1 [facility] Comment on above: Performed By: #### B 12FOL, VITAD, IRON #### [facility] [address] [place] [address] Dr. Ekta Funk Protein [Mass/Vol] 7.3 g/dL Normal 6.4-8.2 [facility] Comment on above: Performed By: #### B 12FOL, VITAD, IRON #### [facility] [address] [place] [address] Dr. Ekta Funk Sodium [Moles/Vol] 143 mmol/L Normal 136-145 [facility] Comment on above: Performed By: #### B 12FOL, VITAD, IRON #### [facility] [address] [place] [address] Dr. Ekta Funk Urea nitrogen [Mass/Vol] 37.0 mg/dL Critically high 7.0-18.0 [facility] Comment on above: Performed By: #### B 12FOL, VITAD, IRON #### [facility] [address] [place] [address] Dr. Ekta Funk Urea nitrogen/Creatinine [Mass ratio] 17.8 mg/mg Normal [facility] Comment on above: Performed By: #### B 12FOL, VITAD, IRON #### [facility] [address] [address] [address] Ekta Funk TROPONIN, HIGH SENSITIVITYon 11-24-2022 HSTROP 14.1 pg/mL Normal 4.0-51.3 [facility] Comment on above: Result Comment: CUT- OFF POINTS HAVE BEEN ESTABLISHED BASED ON THE FOURTH UNIVERSAL DEFINITIONS OF MYOCARDIAL INFARCTION. THE UPPER REFERENCE LIMIT (URL) OF TROPONIN, DEFINED THE 99TH PERCENTILE OF cTnI DISTRIBUTION IN A REFERENCE POPULATION, HAS BEEN CONFIRMED THE DECISION THRESHOLD FOR [place] DIAGNOSIS. Performed By: #### B 12FOL, VITAD, IRON #### [facility] [address] [address] [address] Ekta Funk TSHon 11-24-2022 TSH 1.184 uIU/mL Normal 0.358-3.740 [facility] Comment on above: Performed By: #### B 12FOL VITAD, IRON #### [facility] [address] [address] [address] Ekta Funk XR CHEST 1 Von [...] NATALIIA TATE Date: 2022-11-24 11:00 Normal [facility] BNPon 11-13-2022 Natriuretic peptide B (Bld) [Mass/Vol] 565.0 pg/mL Normal <=900.0 [facility] Comment on above: Performed By: #### I NSULIN #### [facility] [address] [address] [address] Ekta Funk CBC AUTO DIFFon 11-13-2022 BASO # 0.1 103/ul Normal 0.0-0.1 [facility] Comment on above: Performed By: #### C BC #### [facility] [address] [place] [address] Dr. Ekta Funk Basophils/100 WBC (Bld) 0.6 % Normal 0.2-2.0 [facility] Comment on above: Performed By: #### C BC #### [facility] [address] [place] [address] Dr. Ekta Funk EO # 0.4 103/ul Normal 0.0-0.7 [facility] Comment on above: Performed By: #### C BC #### [facility] [address] [place] [address] Dr. Ekta Funk Eosinophils/100 WBC (Bld) 3.7 % Normal 0.9-7.0 [facility] Comment on above: Performed By: #### C BC #### [facility] [address] [place] [address] Dr. Ekta Funk Erythrocyte distribution width (RBC) [Ratio] 13.2 % Normal 11.0-15.0 [facility] Comment on above: Performed By: #### C BC #### [facility] [address] [place] [address] Dr. Ekta Funk Hematocrit (Bld) [Volume fraction] 36.7 % Normal 36.0-48.0 [facility] Comment on above: Performed By: #### C BC #### [facility] [address] [place] [address] Dr. Ekta Funk Hemoglobin (Bld) [Mass/Vol] 12.4 g/dL Normal 12.0-16.0 [facility] Comment on above: Performed By: #### C BC #### [facility] [address] [place] [address] Dr. Ekta Funk IG # 0.10 10e3/ul Critically high 0.00-0.03 [facility] Comment on above: Performed By: #### C BC #### [facility] [address] [place] [address] Dr. Ekta Funk IG % 1.0 % Critically high 0.0-0.5 [facility] Comment on above: Performed By: #### C BC #### [facility] [address] [place] [address] Dr. Ekta Funk LYMPH # 1.5 103/ul Normal 1.2-3.8 [facility] Comment on above: Performed By: #### C BC #### [facility] [address] [place] [address] Dr. Ekta Funk Lymphocytes/100 WBC (Bld) 14.9 % Critically low 20.5-60.0 [facility] Comment on above: Performed By: #### C BC #### [facility] [address] [place] [address] Dr. Ekta Funk MANUAL DIFF REQ NO Normal [facility] Comment on above: Performed By: #### C BC #### [facility] [address] [place] [address] Dr. Ekta Funk MCH (RBC) [Entitic mass] 32.8 pg Normal 26.7-34.0 [facility] Comment on above: Performed By: #### C BC #### [facility] [address] [place] [address] Dr. Ekta Funk MCHC (RBC) [Mass/Vol] 33.8 g/dL Normal 29.9-35.2 [facility] Comment on above: Performed By: #### C BC #### [facility] [address] [place] [address] Dr. Ekta Funk MCV (RBC) [Entitic vol] 97.1 fL Normal 81.0-99.0 [facility] Comment on above: Performed By: #### C BC #### [facility] [address] [place] [address] Dr. Ekta Funk MONO # 0.8 103/ul Normal 0.3-0.8 [facility] Comment on above: Performed By: #### C BC #### [facility] [address] [place] [address] Dr. Ekta Funk Monocytes/100 WBC (Bld) 7.7 % Normal 1.7-12.0 [facility] Comment on above: Performed By: #### C BC #### [facility] [address] [place] [address] Dr. Ekta Funk NEUT # 7.3 103/ul Critically high 1.4-6.5 [facility] Comment on above: Performed By: #### C BC #### [facility] [address] [place] [address] Dr. Ekta Funk Neutrophils/100 WBC (Bld) 72.1 % Normal 43.0-75.0 [facility] Comment on above: Performed By: #### C BC #### [facility] [address] [place] [address] Dr. Ekta Funk Platelet mean volume (Bld) [Entitic vol] 9.4 fL Critically low 9.5-13.5 [facility] Comment on above: Performed By: #### C BC #### [facility] [address] [place] [address] Dr. Ekta Funk PLT 251 103/ul Normal 150-450 [facility] Comment on above: Performed By: #### C BC #### [facility] [address] [place] [address] Dr. Ekta Funk RBC 3.78 106/ul Critically low 4.20-5.40 [facility] Comment on above: Performed By: #### C BC #### [facility] [address] [place] [address] Dr. Ekta Funk WBC 10.1 103/ul Normal 4.0-11.0 [facility] Comment on above: Performed By: #### C BC #### [facility] [address] [place] [address] Dr. Ekta Funk FREE THYROXINE INDEX T7on FTI 2.73 Normal 1.30-4.50 [facility] Comment on above: Performed By: #### I NSULIN #### [facility] [address] [place] [address] Dr. Ekta Funk T3U 35.0 % Normal 30.0-39.0 [facility] Comment on above: Performed By: #### I NSULIN #### [facility] [address] [address] [address] Ekta Funk T4 [Mass/Vol] 7.80 ug/dL Normal 4.80-13.90 [facility] Comment on above: Performed By: #### I NSULIN #### [facility] [address] [address] [address] Ekta Funk GLYCOHEMOGLOBIN A1Con 2022 ADA RECOMMENDATION SEE BELOW Normal [facility] Comment on above: Result Comment: ADA RECOMMENDED LIMIT 4.0 - 6.0 ADA THERAPEUTIC TARGET < 7.0 ACTION SUGGESTED > 7.0 Performed By: #### B 12FOL, VITAD, IRON #### [facility] [address] [place] [address] Dr. Ekta Funk Glucose [Mass/Vol] 134 mg/dL Normal [facility] Comment on above: Performed By: #### B 12FOL, VITAD, IRON #### [facility] [address] [address] [address] Ekta Funk HbA1c (Bld) [Mass fraction] 6.3 % Critically high 4.5-6.2 [facility] Comment on above: Performed By: #### B 12FOL, VITAD, IRON #### [facility] [address] [address] [address] Ekta Funk IRONon 11-13-2022 Iron [Mass/Vol] 55.0 ug/dL Normal 50.0-170.0 [facility] Comment on above: Performed By: #### B 12FOL, VITAD, IRON #### [facility] [address] [place] [address] Dr. Ekta Funk LIPID PROFILEon 11-13-2022 CHOL-HDL RATIO NORM SEE BELOW Normal [facility] Comment on above: Result Comment: 3.3 - 4.4 LOW RISK 4.4 - 7.1 AVERAGE RISK 7.1 - 11.0 MODERATE RISK >11.0 HIGH RISK Performed By: #### I NSULIN #### [facility] [address] [place] [address] Dr. Ekta Funk Cholesterol [Mass/Vol] 294 mg/dL Critically high <=200 [facility] Comment on above: Performed By: #### I NSULIN #### [facility] [address] [address] [address] Ekta Funk Cholesterol in HDL [Mass/Vol] 64 mg/dL Critically high 40-60 [facility] Comment on above: Performed By: #### I NSULIN #### [facility] [address] [address] [address] Ekta Funk Cholesterol in LDL [Mass/Vol] 197.2 mg/dL Normal [facility] Comment on above: Performed By: #### I NSULIN #### [facility] [address] [address] [address] Ekta Funk Cholesterol.total/Ch olesterol in HDL [Mass ratio] 4.6 {ratio} Normal [facility] Comment on above: Performed By: #### I NSULIN #### [facility] [address] [address] [address] Ekta Funk HDL NORMAL > or = 60 mg/dl - LO W CARDIOVASCULAR RISK <40 mg/dl - HIGH CARDIOVASCULAR RISK Normal [facility] Comment on above: Performed By: #### I NSULIN #### [facility] [address] [address] [address] Ekta Funk LDL CALC NORMAL SEE BELOW Normal [facility] Comment on above: Result Comment: <100 mg/dl OPTIMAL 100 - 129 mg/dl NEAR OR ABOVE OPTIMAL 130 - 159 mg/dl BORDERLINE HIGH 160 - 189 mg/dl HIGH >190 mg/dl VERY HIGH Performed By: #### I NSULIN #### [facility] [address] [address] [address] Ekta Funk Triglyceride [Mass/Vol] 164 mg/dL Critically high <=150 [facility] Comment on above: Performed By: #### I NSULIN #### [facility] [address] [address] [address] Ekta Funk VLDL CALC 32.8 mg/dL Normal [facility] Comment on above: Performed By: #### I NSULIN #### [facility] [address] [address] [address] Ekta Funk PROF 14(COMP METB)on 023 Albumin [Mass/Vol] 3.0 g/dL Critically low 3.4-5.0 [facility] Comment on above: Performed By: #### I NSULIN #### [facility] [address] [address] [address] Ekta Funk Albumin/Globulin [Mass ratio] 0.6 {ratio} Normal [facility] Comment on above: Performed By: #### I NSULIN #### [facility] [address] [address] [address] Ekta Funk ALP [Catalytic activity/Vol] 92 U/L Normal 46-116 [facility] Comment on above: Performed By: #### I NSULIN #### [facility] [address] [place] [address] Dr. Ekta Funk ALT [Catalytic activity/Vol] 26 U/L Normal 14-59 [facility] Comment on above: Performed By: #### I NSULIN #### [facility] [address] [place] [address] Dr. Ekta Funk Anion gap [Moles/Vol] 16.2 mmol/L Normal [facility] Comment on above: Performed By: #### I NSULIN #### [facility] [address] [place] [address] Dr. Ekta Funk AST [Catalytic activity/Vol] 16 U/L Normal 15-37 [facility] Comment on above: Performed By: #### I NSULIN #### [facility] [address] [address] [address] Ekta Funk Bilirubin [Mass/Vol] 0.5 mg/dL Normal 0.2-1.0 [facility] Comment on above: Performed By: #### I NSULIN #### [facility] [address] [address] [address] Ekta Funk Calcium [Mass/Vol] 9.7 mg/dL Normal 8.5-10.1 [facility] Comment on above: Performed By: #### I NSULIN #### [facility] [address] [address] [address] Ekta Funk Chloride [Moles/Vol] 105 mmol/L Normal 98-107 [facility] Comment on above: Performed By: #### I NSULIN #### [facility] [address] [address] [address] Ekta Funk CO2 [Moles/Vol] 24.9 mmol/L Normal 21.0-32.0 [facility] Comment on above: Performed By: #### I NSULIN #### [facility] [address] [address] [address] Ekta Funk Creatinine [Mass/Vol] 2.18 mg/dL Critically high 0.55-1.02 [facility] Comment on above: Performed By: #### I NSULIN #### [facility] [address] [place] [address] Dr. Ekat Funk EGFR-AF CANADIAN 27 mL/min/1.73m2 Critically low >=60 [facility] Comment on above: Performed By: #### I NSULIN #### [facility] [address] [place] [address] Dr. Ekta Funk EGFR-NON AF CANADIAN 22 mL/min/1.73m2 Critically low >=60 [facility] Comment on above: Performed By: #### I NSULIN #### [facility] [address] [place] [address] Dr. Ekta Funk Globulin (S) [Mass/Vol] 4.7 g/dL Normal [facility] Comment on above: Performed By: #### I NSULIN #### [facility] [address] [place] [address] Dr. Ekta Funk Glucose [Mass/Vol] 114 mg/dL Critically high 74-106 [facility] Comment on above: Performed By: #### I NSULIN #### [facility] [address] [place] [address] Dr. Ekta Funk Potassium [Moles/Vol] 5.1 mmol/L Normal 3.5-5.1 [facility] Comment on above: Performed By: #### I NSULIN #### [facility] [address] [address] [address] Ekta Funk Protein [Mass/Vol] 7.7 g/dL Normal 6.4-8.2 [facility] Comment on above: Performed By: #### I NSULIN #### [facility] [address] [address] [address] Ekta Funk Sodium [Moles/Vol] 141 mmol/L Normal 136-145 [facility] Comment on above: Performed By: #### I NSULIN #### [facility] [address] [address] [address] Ekta Funk Urea nitrogen [Mass/Vol] 51.0 mg/dL Critically high 7.0-18.0 [facility] Comment on above: Performed By: #### I NSULIN #### [facility] [address] [place] [address] Dr. Ekta Funk Urea nitrogen/Creatinine [Mass ratio] 23.4 mg/mg Normal [facility] Comment on above: Performed By: #### I NSULIN #### [facility] [address] [address] [address] Ekta Funk TSHon 11-13-2022 TSH 0.935 uIU/mL Normal 0.358-3.740 [facility] Comment on above: Performed By: #### I NSULIN #### [facility] [address] [place] [address] Dr. Ekta Funk XR CHEST 2 Von [...] GODWIN BECK Date: 2022-11-13 15:40 Normal [facility] PROF 14(COMP METB)on 023 Albumin [Mass/Vol] 3.0 g/dL Critically low 3.4-5.0 [facility] Comment on above: Performed By: #### B 12FOL, VITAD, IRON #### [facility] [address] [place] [address] Dr. Ekta Funk Albumin/Globulin [Mass ratio] 0.7 {ratio} Normal [facility] Comment on above: Performed By: #### B 12FOL, VITAD, IRON #### [facility] [address] [place] [address] Dr. Ekta Funk ALP [Catalytic activity/Vol] 89 U/L Normal 46-116 [facility] Comment on above: Performed By: #### B 12FOL, VITAD, IRON #### [facility] [address] [place] [address] Dr. Ekta Funk ALT [Catalytic activity/Vol] 29 U/L Normal 14-59 [facility] Comment on above: Performed By: #### B 12FOL, VITAD, IRON #### [facility] [address] [place] [address] Dr. Ekta Funk Anion gap [Moles/Vol] 15.2 mmol/L Normal [facility] Comment on above: Performed By: #### B 12FOL, VITAD, IRON #### [facility] [address] [place] [address] Dr. Ekta Funk AST [Catalytic activity/Vol] 14 U/L Critically low 15-37 [facility] Comment on above: Performed By: #### B 12FOL, VITAD, IRON #### [facility] [address] [place] [address] Dr. Ekta Funk Bilirubin [Mass/Vol] 0.4 mg/dL Normal 0.2-1.0 [facility] Comment on above: Performed By: #### B 12FOL, VITAD, IRON #### [facility] [address] [place] [address] Dr. Ekta Funk Calcium [Mass/Vol] 9.1 mg/dL Normal 8.5-10.1 [facility] Comment on above: Performed By: #### B 12FOL, VITAD, IRON #### [facility] [address] [place] [address] Dr. Ekta Funk Chloride [Moles/Vol] 106 mmol/L Normal 98-107 [facility] Comment on above: Performed By: #### B 12FOL, VITAD, IRON #### [facility] [address] [place] [address] Dr. Ekta Funk CO2 [Moles/Vol] 24.2 mmol/L Normal 21.0-32.0 [facility] Comment on above: Performed By: #### B 12FOL, VITAD, IRON #### [facility] [address] [place] [address] Dr. Ekta Funk Creatinine [Mass/Vol] 1.89 mg/dL Critically high 0.55-1.02 [facility] Comment on above: Performed By: #### B 12FOL, VITAD, IRON #### [facility] [address] [place] [address] Dr. Ekta Funk EGFR-AF CA[place]DIAN 32 mL/min/1.73m2 Critically low >=60 [facility] Comment on above: Performed By: #### B 12FOL, VITAD, IRON #### [facility] [address] [place] [address] Dr. Ekta Funk EGFR-NON AF CA[place]DIAN 26 mL/min/1.73m2 Critically low >=60 [facility] Comment on above: Performed By: #### B 12FOL, VITAD, IRON #### [facility] [address] [place] [address] Dr. Ekta Funk Globulin (S) [Mass/Vol] 4.1 g/dL Normal [facility] Comment on above: Performed By: #### B 12FOL, VITAD, IRON #### [facility] [address] [place] [address] Dr. Ekta Funk Glucose [Mass/Vol] 108 mg/dL Critically high 74-106 [facility] Comment on above: Performed By: #### B 12FOL, VITAD, IRON #### [facility] [address] [place] [address] Dr. Ekta Funk Potassium [Moles/Vol] 4.4 mmol/L Normal 3.5-5.1 [facility] Comment on above: Performed By: #### B 12FOL, VITAD, IRON #### [facility] [address] [place] [address] Dr. Ekta Funk Protein [Mass/Vol] 7.1 g/dL Normal 6.4-8.2 [facility] Comment on above: Performed By: #### B 12FOL, VITAD, IRON #### [facility] [address] [place] [address] Dr. Ekta Funk Sodium [Moles/Vol] 141 mmol/L Normal 136-145 [facility] Comment on above: Performed By: #### B 12FOL, VITAD, IRON #### [facility] [address] [place] [address] Dr. Ekta Funk Urea nitrogen [Mass/Vol] 40.0 mg/dL Critically high 7.0-18.0 [facility] Comment on above: Performed By: #### B 12FOL, VITAD, IRON #### [facility] [address] [place] [address] Dr. Ekta Funk Urea nitrogen/Creatinine [Mass ratio] 21.2 mg/mg Normal [facility] Comment on above: Performed By: #### B 12FOL, VITAD, IRON #### [facility] [address] [place] [address] Dr. Ekta Funk BNPon 10-23-2022 Natriuretic peptide B (Bld) [Mass/Vol] 507.0 pg/mL Normal <=900.0 [facility] Comment on above: Performed By: #### B 12FOL, VITAD, IRON #### [facility] [address] [place] [address] Dr. Ekta Funk CBC AUTO DIFFon 10-23-2022 BASO # 0.0 103/ul Normal 0.0-0.1 [facility] Comment on above: Performed By: #### C BC #### [facility] [address] [address] [address] Ekta Funk Basophils/100 WBC (Bld) 0.2 % Normal 0.2-2.0 [facility] Comment on above: Performed By: #### C BC #### [facility] [address] [address] [address] Ekta Funk EO # 0.1 103/ul Normal 0.0-0.7 [facility] Comment on above: Performed By: #### C BC #### [facility] [address] [address] [address] Ekta Funk Eosinophils/100 WBC (Bld) 1.1 % Normal 0.9-7.0 [facility] Comment on above: Performed By: #### C BC #### [facility] [address] [place] [address] Dr. Ekta Funk Erythrocyte distribution width (RBC) [Ratio] 12.8 % Normal 11.0-15.0 [facility] Comment on above: Performed By: #### C BC #### [facility] [address] [place] [address] Dr. Ekta Funk Hematocrit (Bld) [Volume fraction] 37.1 % Normal 36.0-48.0 [facility] Comment on above: Performed By: #### C BC #### [facility] [address] [place] [address] Dr. Ekta Funk Hemoglobin (Bld) [Mass/Vol] 13.0 g/dL Normal 12.0-16.0 [facility] Comment on above: Performed By: #### C BC #### [facility] [address] [place] [address] Dr. Ekta Funk IG # 0.11 10e3/ul Critically high 0.00-0.03 [facility] Comment on above: Performed By: #### C BC #### [facility] [address] [address] [address] Ekta Funk IG % 1.1 % Critically high 0.0-0.5 [facility] Comment on above: Performed By: #### C BC #### [facility] [address] [address] [address] Ekta Funk LYMPH # 1.6 103/ul Normal 1.2-3.8 [facility] Comment on above: Performed By: #### C BC #### [facility] [address] [address] [address] Ekta Funk Lymphocytes/100 WBC (Bld) 15.6 % Critically low 20.5-60.0 [facility] Comment on above: Performed By: #### C BC #### [facility] [address] [place] [address] Dr. Ekta Funk MANUAL DIFF REQ NO Normal [facility] Comment on above: Performed By: #### C BC #### [facility] [address] [place] [address] Dr. Ekta Funk MCH (RBC) [Entitic mass] 32.8 pg Normal 26.7-34.0 [facility] Comment on above: Performed By: #### C BC #### [facility] [address] [place] [address] Dr. Ekta Funk MCHC (RBC) [Mass/Vol] 35.0 g/dL Normal 29.9-35.2 [facility] Comment on above: Performed By: #### C BC #### [facility] [address] [place] [address] Dr. Ekta Funk MCV (RBC) [Entitic vol] 93.7 fL Normal 81.0-99.0 [facility] Comment on above: Performed By: #### C BC #### [facility] [address] [place] [address] Dr. Ekta Funk MONO # 0.9 103/ul Critically high 0.3-0.8 [facility] Comment on above: Performed By: #### C BC #### [facility] [address] [place] [address] Dr. Ekta Funk Monocytes/100 WBC (Bld) 8.3 % Normal 1.7-12.0 [facility] Comment on above: Performed By: #### C BC #### [facility] [address] [address] [address] Ekta Funk NEUT # 7.5 103/ul Critically high 1.4-6.5 [facility] Comment on above: Performed By: #### C BC #### [facility] [address] [address] [address] Ekta Funk Neutrophils/100 WBC (Bld) 73.7 % Normal 43.0-75.0 [facility] Comment on above: Performed By: #### C BC #### [facility] [address] [place] [address] Dr. Ekta Funk Platelet mean volume (Bld) [Entitic vol] 10.3 fL Normal 9.5-13.5 [facility] Comment on above: Performed By: #### C BC #### [facility] [address] [place] [address] Dr. Ekta Funk PLT 135 103/ul Critically low 150-450 [facility] Comment on above: Performed By: #### C BC #### [facility] [address] [place] [address] Dr. Ekta Funk RBC 3.96 106/ul Critically low 4.20-5.40 [facility] Comment on above: Performed By: #### C BC #### [facility] [address] [place] [address] Dr. Ekta Funk WBC 10.2 103/ul Normal 4.0-11.0 [facility] Comment on above: Performed By: #### C BC #### [facility] [address] [place] [address] Dr. Ekta Funk PROF 14(COMP METB)on 023 Albumin [Mass/Vol] 2.7 g/dL Critically low 3.4-5.0 [facility] Comment on above: Performed By: #### B 12NENO SNOWDENAD, IRON #### [facility] [address] [place] [address] Dr. Ekta Funk Albumin/Globulin [Mass ratio] 0.8 {ratio} Normal [facility] Comment on above: Performed By: #### B 12FONENO LuiAD, IRON #### [facility] [address] [address] [address] Ekta Funk ALP [Catalytic activity/Vol] 74 U/L Normal 46-116 [facility] Comment on above: Performed By: #### B 12FOL, VITAD, IRON #### [facility] [address] [place] [address] Dr. Ekta Funk ALT [Catalytic activity/Vol] 26 U/L Normal 14-59 [facility] Comment on above: Performed By: #### B 12FOL, VITAD, IRON #### [facility] [address] [place] [address] Dr. Ekta Funk Anion gap [Moles/Vol] 16.5 mmol/L Normal [facility] Comment on above: Performed By: #### B 12FOL, VITAD, IRON #### [facility] [address] [place] [address] Dr. Ekta Funk AST [Catalytic activity/Vol] 15 U/L Normal 15-37 [facility] Comment on above: Performed By: #### B 12FOL, VITAD, IRON #### [facility] [address] [place] [address] Dr. Ekta Funk Bilirubin [Mass/Vol] 0.4 mg/dL Normal 0.2-1.0 [facility] Comment on above: Performed By: #### B 12FOL, VITAD, IRON #### [facility] [address] [place] [address] Dr. Ekta Funk Calcium [Mass/Vol] 8.1 mg/dL Critically low 8.5-10.1 [facility] Comment on above: Performed By: #### B 12FOL, VITAD, IRON #### [facility] [address] [place] [address] Dr. Ekta Funk Chloride [Moles/Vol] 96 mmol/L Critically low 98-107 [facility] Comment on above: Performed By: #### B 12FOL, VITAD, IRON #### [facility] [address] [place] [address] Dr. Ekta Funk CO2 [Moles/Vol] 26.1 mmol/L Normal 21.0-32.0 [facility] Comment on above: Performed By: #### B 12FOL, VITAD, IRON #### [facility] [address] [address] [address] Ekta Funk Creatinine [Mass/Vol] 3.28 mg/dL Critically high 0.55-1.02 [facility] Comment on above: Performed By: #### B 12FOL, VITAD, IRON #### [facility] [address] [place] [address] Dr. Ekta Funk EGFR-AF CA[place]DIAN 17 mL/min/1.73m2 Critically low >=60 [facility] Comment on above: Performed By: #### B 12FOL, VITAD, IRON #### [facility] [address] [place] [address] Dr. Ekta Funk EGFR-NON AF CA[place]DIAN 14 mL/min/1.73m2 Critically low >=60 [facility] Comment on above: Performed By: #### B 12FOL, VITAD, IRON #### [facility] [address] [place] [address] Dr. Ekta Funk Globulin (S) [Mass/Vol] 3.6 g/dL Normal [facility] Comment on above: Performed By: #### B 12FOL, VITAD, IRON #### [facility] [address] [address] [address] Ekta Funk Glucose [Mass/Vol] 132 mg/dL Critically high 74-106 [facility] Comment on above: Performed By: #### B 12FOL, VITAD, IRON #### [facility] [address] [place] [address] Dr. Ekta Funk Potassium [Moles/Vol] 4.6 mmol/L Normal 3.5-5.1 [facility] Comment on above: Performed By: #### B 12FOL, VITAD, IRON #### [facility] [address] [place] [address] Dr. Ekta Funk Protein [Mass/Vol] 6.3 g/dL Critically low 6.4-8.2 [facility] Comment on above: Performed By: #### B 12FOL, VITAD, IRON #### [facility] [address] [place] [address] Dr. Ekta Funk Sodium [Moles/Vol] 134 mmol/L Critically low 136-145 [facility] Comment on above: Performed By: #### B 12FOL, VITAD, IRON #### [facility] [address] [place] [address] Dr. Ekta Funk Urea nitrogen [Mass/Vol] 74.0 mg/dL Critically high 7.0-18.0 [facility] Comment on above: Performed By: #### B 12FOL, VITAD, IRON #### [facility] [address] [place] [address] Dr. Ekta Funk Urea nitrogen/Creatinine [Mass ratio] 22.6 mg/mg Normal [facility] Comment on above: Performed By: #### B 12FOL, VITAD, IRON #### [facility] [address] [place] [address] Dr. Ekta Funk BNPon 10-22-2022 Natriuretic peptide B (Bld) [Mass/Vol] 1411.0 pg/mL Critically high <=900.0 [facility] Comment on above: Performed By: #### B 12FOL, VITAD, IRON #### [facility] [address] [place] [address] Dr. Ekta Funk CBC AUTO DIFFon 10-22-2022 BASO # 0.0 103/ul Normal 0.0-0.1 [facility] Comment on above: Performed By: #### B 12FOL, VITAD, IRON #### [facility] [address] [place] [address] Dr. Ekta Funk Basophils/100 WBC (Bld) 0.3 % Normal 0.2-2.0 [facility] Comment on above: Performed By: #### B 12FOL, VITAD, IRON #### [facility] [address] [place] [address] Dr. Ekta Funk EO # 0.1 103/ul Normal 0.0-0.7 [facility] Comment on above: Performed By: #### B 12FOL, VITAD, IRON #### [facility] Laboratory [address] [place] [address] Dr. Ekta Funk Eosinophils/100 WBC (Bld) 0.6 % Critically low 0.9-7.0 [facility] Comment on above: Performed By: #### B 12FOL, VITAD, IRON #### [facility] [address] [place] [address] Dr. Ekta Funk Erythrocyte distribution width (RBC) [Ratio] 12.9 % Normal 11.0-15.0 [facility] Comment on above: Performed By: #### B 12FOL, VITAD, IRON #### [facility] [address] [place] [address] Dr. Ekta Funk Hematocrit (Bld) [Volume fraction] 40.8 % Normal 36.0-48.0 [facility] Comment on above: Performed By: #### B 12FOL, VITAD, IRON #### [facility] [address] [place] [address] Dr. Ekta Funk Hemoglobin (Bld) [Mass/Vol] 14.0 g/dL Normal 12.0-16.0 [facility] Comment on above: Performed By: #### B 12FOL, VITAD, IRON #### [facility] [address] [place] [address] Dr. Ekta Funk IG # 0.09 10e3/ul Critically high 0.00-0.03 [facility] Comment on above: Performed By: #### B 12FOL, VITAD, IRON #### [facility] [address] [place] [address] Dr. Ekta Funk IG % 0.8 % Critically high 0.0-0.5 [facility] Comment on above: Performed By: #### B 12FOL, VITAD, IRON #### [facility] [address] [place] [address] Dr. Ekta Funk LYMPH # 1.8 103/ul Normal 1.2-3.8 [facility] Comment on above: Performed By: #### B 12FOL, VITAD, IRON #### [facility] [address] [address] [address] Ekta Funk Lymphocytes/100 WBC (Bld) 16.2 % Critically low 20.5-60.0 [facility] Comment on above: Performed By: #### B 12FOL, VITAD, IRON #### [facility] [address] [place] [address] Dr. Ekta Funk MANUAL DIFF REQ NO Normal [facility] Comment on above: Performed By: #### B 12FOL, VITAD, IRON #### [facility] [address] [place] [address] Dr. Ekta Funk MCH (RBC) [Entitic mass] 32.3 pg Normal 26.7-34.0 [facility] Comment on above: Performed By: #### B 12FOL, VITAD, IRON #### [facility] [address] [place] [address] Dr. Ekta Funk MCHC (RBC) [Mass/Vol] 34.3 g/dL Normal 29.9-35.2 [facility] Comment on above: Performed By: #### B 12FOL, VITAD, IRON #### [facility] [address] [place] [address] Dr. Ekta Funk MCV (RBC) [Entitic vol] 94.2 fL Normal 81.0-99.0 [facility] Comment on above: Performed By: #### B 12FOL, VITAD, IRON #### [facility] [address] [place] [address] Dr. Ekta Funk MONO # 0.8 103/ul Normal 0.3-0.8 [facility] Comment on above: Performed By: #### B 12FOL, VITAD, IRON #### [facility] [address] [place] [address] Dr. Ekta Funk Monocytes/100 WBC (Bld) 7.3 % Normal 1.7-12.0 [facility] Comment on above: Performed By: #### B 12FOL, VITAD, IRON #### [facility] [address] [address] [address] Ekta Funk NEUT # 8.1 103/ul Critically high 1.4-6.5 [facility] Comment on above: Performed By: #### B 12FOL, VITAD, IRON #### [facility] [address] [address] [address] Ekta Funk Neutrophils/100 WBC (Bld) 74.8 % Normal 43.0-75.0 [facility] Comment on above: Performed By: #### B 12FOL, VITAD, IRON #### [facility] [address] [place] [address] Dr. Ekta Funk Platelet mean volume (Bld) [Entitic vol] 9.8 fL Normal 9.5-13.5 [facility] Comment on above: Performed By: #### B 12FOL, VITAD, IRON #### [facility] [address] [place] [address] Dr. Ekta Funk PLT 226 103/ul Normal 150-450 [facility] Comment on above: Performed By: #### B 12FOL, VITAD, IRON #### [facility] [address] [place] [address] Dr. Ekta Funk RBC 4.33 106/ul Normal 4.20-5.40 [facility] Comment on above: Performed By: #### B 12FOL, VITAD, IRON #### [facility] [address] [place] [address] Dr. Ekta Funk WBC 10.9 103/ul Normal 4.0-11.0 [facility] Comment on above: Performed By: #### B 12FOL, VITAD, IRON #### [facility] [address] [place] [address] Dr. Ekta Funk PROF 14(COMP METB)on 023 Albumin [Mass/Vol] 3.1 g/dL Critically low 3.4-5.0 [facility] Comment on above: Performed By: #### B 12FOL, VITAD, IRON #### [facility] [address] [place] [address] Dr. Ekta Funk Albumin/Globulin [Mass ratio] 0.7 {ratio} Normal [facility] Comment on above: Performed By: #### B 12FOL, VITAD, IRON #### [facility] [address] [place] [address] Dr. Ekta Funk ALP [Catalytic activity/Vol] 81 U/L Normal 46-116 [facility] Comment on above: Performed By: #### B 12FOL, VITAD, IRON #### [facility] [address] [place] [address] Dr. Ekta Funk ALT [Catalytic activity/Vol] 30 U/L Normal 14-59 [facility] Comment on above: Performed By: #### B 12FOL, VITAD, IRON #### [facility] [address] [place] [address] Dr. Ekta Funk Anion gap [Moles/Vol] 17.3 mmol/L Normal [facility] Comment on above: Performed By: #### B 12FOL, VITAD, IRON #### [facility] [address] [place] [address] Dr. Ekta Funk AST [Catalytic activity/Vol] 11 U/L Critically low 15-37 [facility] Comment on above: Performed By: #### B 12FOL, VITAD, IRON #### [facility] [address] [place] [address] Dr. Ekta Funk Bilirubin [Mass/Vol] 0.5 mg/dL Normal 0.2-1.0 [facility] Comment on above: Performed By: #### B 12FOL, VITAD, IRON #### [facility] [address] [place] [address] Dr. Ekta Funk Calcium [Mass/Vol] 8.6 mg/dL Normal 8.5-10.1 [facility] Comment on above: Performed By: #### B 12FOL, VITAD, IRON #### [facility] [address] [place] [address] Dr. Ekta Funk Chloride [Moles/Vol] 95 mmol/L Critically low 98-107 [facility] Comment on above: Performed By: #### B 12FOL, VITAD, IRON #### [facility] [address] [place] [address] Dr. Ekta Funk CO2 [Moles/Vol] 27.3 mmol/L Normal 21.0-32.0 [facility] Comment on above: Performed By: #### B 12FOL, VITAD, IRON #### [facility] [address] [place] [address] Dr. Ekta Funk Creatinine [Mass/Vol] 3.17 mg/dL Critically high 0.55-1.02 [facility] Comment on above: Performed By: #### B 12FOL, VITAD, IRON #### [facility] [address] [place] [address] Dr. Ekta Funk EGFR-AF CANADIAN 17 mL/min/1.73m2 Critically low >=60 [facility] Comment on above: Performed By: #### B 12FOL, VITAD, IRON #### [facility] [address] [place] [address] Dr. Ekta Funk EGFR-NON AF CANADIAN 14 mL/min/1.73m2 Critically low >=60 [facility] Comment on above: Performed By: #### B 12FOL, VITAD, IRON #### [facility] [address] [place] [address] Dr. Ekta Funk Globulin (S) [Mass/Vol] 4.6 g/dL Normal [facility] Comment on above: Performed By: #### B 12FOL, VITAD, IRON #### [facility] [address] [place] [address] Dr. Ekta Funk Glucose [Mass/Vol] 139 mg/dL Critically high 74-106 [facility] Comment on above: Performed By: #### B 12FOL, VITAD, IRON #### [facility] [address] [place] [address] Dr. Ekta Funk Potassium [Moles/Vol] 4.6 mmol/L Normal 3.5-5.1 [facility] Comment on above: Performed By: #### B 12FOL, VITAD, IRON #### [facility] [address] [place] [address] Dr. Ekta Funk Protein [Mass/Vol] 7.7 g/dL Normal 6.4-8.2 [facility] Comment on above: Performed By: #### B 12FOL, VITAD, IRON #### [facility] [address] [place] [address] Dr. Ekta Funk Sodium [Moles/Vol] 135 mmol/L Critically low 136-145 [facility] Comment on above: Performed By: #### B 12FOL, VITAD, IRON #### [facility] [address] [place] [address] Dr. Ekta Funk Urea nitrogen [Mass/Vol] 73.0 mg/dL Critically high 7.0-18.0 [facility] Comment on above: Performed By: #### B 12FOL, VITAD, IRON #### [facility] [address] [place] [address] Dr. Ekta Funk Urea nitrogen/Creatinine [Mass ratio] 23.0 mg/mg Normal [facility] Comment on above: Performed By: #### B 12FOL, VITAD, IRON #### [facility] [address] [place] [address] Dr. Ekta Funk BNPon 10-21-2022 Natriuretic peptide B (Bld) [Mass/Vol] 2007.0 pg/mL Critically high <=900.0 [facility] Comment on above: Performed By: #### C MP #### [facility] [address] [place] [address] Dr. Ekta Funk CBC AUTO DIFFon 10-21-2022 BASO # 0.0 103/ul Normal 0.0-0.1 [facility] Comment on above: Performed By: #### C BC #### [facility] [address] [place] [address] Dr. Ekta Funk Basophils/100 WBC (Bld) 0.2 % Normal 0.2-2.0 [facility] Comment on above: Performed By: #### C BC #### [facility] [address] [place] [address] Dr. Ekta Funk EO # 0.1 103/ul Normal 0.0-0.7 [facility] Comment on above: Performed By: #### C BC #### [facility] [address] [place] [address] Dr. Ekta Funk Eosinophils/100 WBC (Bld) 0.9 % Normal 0.9-7.0 [facility] Comment on above: Performed By: #### C BC #### [facility] [address] [place] [address] Dr. Ekta Funk Erythrocyte distribution width (RBC) [Ratio] 12.8 % Normal 11.0-15.0 [facility] Comment on above: Performed By: #### C BC #### [facility] [address] [place] [address] Dr. Ekta Funk Hematocrit (Bld) [Volume fraction] 38.8 % Normal 36.0-48.0 [facility] Comment on above: Performed By: #### C BC #### [facility] [address] [place] [address] Dr. Ekta Funk Hemoglobin (Bld) [Mass/Vol] 13.3 g/dL Normal 12.0-16.0 [facility] Comment on above: Performed By: #### C BC #### [facility] [address] [place] [address] Dr. Ekta Funk IG # 0.08 10e3/ul Critically high 0.00-0.03 [facility] Comment on above: Performed By: #### C BC #### [facility] [address] [place] [address] Dr. Ekta Funk IG % 0.8 % Critically high 0.0-0.5 [facility] Comment on above: Performed By: #### C BC #### [facility] [address] [place] [address] Dr. Ekta Funk LYMPH # 1.7 103/ul Normal 1.2-3.8 [facility] Comment on above: Performed By: #### C BC #### [facility] [address] [place] [address] Dr. Ekta Funk Lymphocytes/100 WBC (Bld) 17.3 % Critically low 20.5-60.0 [facility] Comment on above: Performed By: #### C BC #### [facility] [address] [place] [address] Dr. Ekta Funk MANUAL DIFF REQ NO Normal [facility] Comment on above: Performed By: #### C BC #### [facility] [address] [place] [address] Dr. Ekta Funk MCH (RBC) [Entitic mass] 32.1 pg Normal 26.7-34.0 [facility] Comment on above: Performed By: #### C BC #### [facility] [address] [place] [address] Dr. Ekta Funk MCHC (RBC) [Mass/Vol] 34.3 g/dL Normal 29.9-35.2 [facility] Comment on above: Performed By: #### C BC #### [facility] [address] [place] [address] Dr. Ekta Funk MCV (RBC) [Entitic vol] 93.7 fL Normal 81.0-99.0 [facility] Comment on above: Performed By: #### C BC #### [facility] [address] [place] [address] Dr. Ekta Funk MONO # 0.6 103/ul Normal 0.3-0.8 [facility] Comment on above: Performed By: #### C BC #### [facility] [address] [place] [address] Dr. Ekta Funk Monocytes/100 WBC (Bld) 6.4 % Normal 1.7-12.0 [facility] Comment on above: Performed By: #### C BC #### [facility] [address] [place] [address] Dr. Ekta Funk NEUT # 7.4 103/ul Critically high 1.4-6.5 [facility] Comment on above: Performed By: #### C BC #### [facility] [address] [place] [address] Dr. Ekta Funk Neutrophils/100 WBC (Bld) 74.4 % Normal 43.0-75.0 [facility] Comment on above: Performed By: #### C BC #### [facility] [address] [place] [address] Dr. Ekta Funk Platelet mean volume (Bld) [Entitic vol] 9.8 fL Normal 9.5-13.5 [facility] Comment on above: Performed By: #### C BC #### [facility] [address] [place] [address] Dr. Ekta Funk PLT 193 103/ul Normal 150-450 [facility] Comment on above: Performed By: #### C BC #### [facility] [address] [place] [address] Dr. Ekta Funk RBC 4.14 106/ul Critically low 4.20-5.40 [facility] Comment on above: Performed By: #### C BC #### [facility] [address] [place] [address] Dr. Ekta Funk WBC 9.9 103/ul Normal 4.0-11.0 [facility] Comment on above: Performed By: #### C BC #### [facility] [address] [place] [address] Dr. Ekta Funk PROF 14(COMP METB)on 023 Albumin [Mass/Vol] 3.2 g/dL Critically low 3.4-5.0 [facility] Comment on above: Performed By: #### I NSULIN #### [facility] [address] [place] [address] Dr. Ekta Funk Albumin/Globulin [Mass ratio] 0.8 {ratio} Normal [facility] Comment on above: Performed By: #### I NSULIN #### [facility] [address] [place] [address] Dr. Ekta Funk ALP [Catalytic activity/Vol] 82 U/L Normal 46-116 [facility] Comment on above: Performed By: #### I NSULIN #### [facility] [address] [place] [address] Dr. Ekta Funk ALT [Catalytic activity/Vol] 38 U/L Normal 14-59 [facility] Comment on above: Performed By: #### I NSULIN #### [facility] [address] [address] [address] Ekta Funk Anion gap [Moles/Vol] 19.1 mmol/L Normal [facility] Comment on above: Performed By: #### I NSULIN #### [facility] [address] [address] [address] Ekta Funk AST [Catalytic activity/Vol] 19 U/L Normal 15-37 [facility] Comment on above: Performed By: #### I NSULIN #### [facility] [address] [address] [address] Ekta Funk Bilirubin [Mass/Vol] 0.4 mg/dL Normal 0.2-1.0 [facility] Comment on above: Performed By: #### I NSULIN #### [facility] [address] [address] [address] Ekta Funk Calcium [Mass/Vol] 9.2 mg/dL Normal 8.5-10.1 [facility] Comment on above: Performed By: #### I NSULIN #### [facility] [address] [address] [address] Ekta Funk Chloride [Moles/Vol] 98 mmol/L Normal 98-107 [facility] Comment on above: Performed By: #### I NSULIN #### [facility] [address] [address] [address] Ekta Funk CO2 [Moles/Vol] 26.4 mmol/L Normal 21.0-32.0 [facility] Comment on above: Performed By: #### I NSULIN #### [facility] [address] [address] [address] Ekta Funk Creatinine [Mass/Vol] 2.20 mg/dL Critically high 0.55-1.02 [facility] Comment on above: Performed By: #### I NSULIN #### [facility] [address] [address] [address] Ekta Funk EGFR-AF CANADIAN 26 mL/min/1.73m2 Critically low >=60 [facility] Comment on above: Performed By: #### I NSULIN #### [facility] [address] [address] [address] Ekta Funk EGFR-NON AF [place] 22 mL/min/1.73m2 Critically low >=60 [facility] Comment on above: Performed By: #### I NSULIN #### [facility] [address] [address] [address] Ekta Funk Globulin (S) [Mass/Vol] 3.8 g/dL Normal [facility] Comment on above: Performed By: #### I NSULIN #### [facility] [address] [address] [address] Ekta Funk Glucose [Mass/Vol] 142 mg/dL Critically high 74-106 [facility] Comment on above: Performed By: #### I NSULIN #### [facility] [address] [address] [address] Ekta Funk Potassium [Moles/Vol] 4.5 mmol/L Normal 3.5-5.1 [facility] Comment on above: Performed By: #### I NSULIN #### [facility] [address] [address] [address] Ekta Funk Protein [Mass/Vol] 7.0 g/dL Normal 6.4-8.2 [facility] Comment on above: Performed By: #### I NSULIN #### [facility] [address] [address] [address] Ekta Funk Sodium [Moles/Vol] 139 mmol/L Normal 136-145 [facility] Comment on above: Performed By: #### I NSULIN #### [facility] [address] [address] [address] Ekta Funk Urea nitrogen [Mass/Vol] 57.0 mg/dL Critically high 7.0-18.0 [facility] Comment on above: Performed By: #### I NSULIN #### [facility] [address] [address] [address] Ekta Funk Urea nitrogen/Creatinine [Mass ratio] 25.9 mg/mg Normal [facility] Comment on above: Performed By: #### I NSULIN #### [facility] [address] [address] [address] Ekta Funk T3, TOTAL (TRIIODOTHYRONINE) on 10-21-2022 T3, TOTAL 63 ng/dL Critically low 71-180 [facility] Comment on above: Performed By: #### C MP #### [facility] [address] [address] [address] Ekta Funk XR ABD FLAT_UPon 10-21-2022 [...] by: DANIEL MARIE Date: 2022-10-21 11:42 Normal [facility] XR CHEST 2 Von 10-21-2022 [...] by: CHRISTIANO MORALES Date: 2022-10-21 11:23 Normal [facility] BNPon 10-20-2022 Natriuretic peptide B (Bld) [Mass/Vol] 2512.0 pg/mL Critically high <=900.0 [facility] Comment on above: Performed By: #### B 12FOL, VITAD, IRON #### [facility] [address] [address] [address] Ekta Funk CARDIAC BRITTANIE ADMITon 023 CK [Catalytic activity/Vol] 35 U/L Normal 26-192 [facility] Comment on above: Performed By: #### B 12FOL, VITAD, IRON #### [facility] [address] [place] [address] Dr. Ekta Funk CK.MB [Mass/Vol] 0.64 ng/mL Normal <=3.60 [facility] Comment on above: Performed By: #### B 12FOL, VITAD, IRON #### [facility] [address] [place] [address] Dr. Ekta Funk HSTROP 28.1 pg/mL Normal 4.0-51.3 [facility] Comment on above: Result Comment: CUT- OFF POINTS HAVE BEEN ESTABLISHED BASED ON THE FOURTH UNIVERSAL DEFINITIONS OF MYOCARDIAL INFARCTION. THE UPPER REFERENCE LIMIT (URL) OF TROPONIN, DEFINED THE 99TH PERCENTILE OF cTnI DISTRIBUTION IN A REFERENCE POPULATION, HAS BEEN CONFIRMED THE DECISION THRESHOLD FOR [place] DIAGNOSIS. Performed By: #### B 12FOL, VITAD, IRON #### [facility] [address] [place] [address] Dr. Ekta Funk EVELYN 57 ng/mL Normal 9-82 [facility] Comment on above: Performed By: #### B 12FOL, VITAD, IRON #### [facility] [address] [place] [address] Dr. Ekta Funk CBC AUTO DIFFon 10-20-2022 BASO # 0.0 103/ul Normal 0.0-0.1 [facility] Comment on above: Performed By: #### C BC #### [facility] [address] [place] [address] Dr. Ekta Funk Basophils/100 WBC (Bld) 0.2 % Normal 0.2-2.0 [facility] Comment on above: Performed By: #### C BC #### [facility] [address] [place] [address] Dr. Ekta Funk EO # 0.2 103/ul Normal 0.0-0.7 [facility] Comment on above: Performed By: #### C BC #### [facility] [address] [place] [address] Dr. Ekta Funk Eosinophils/100 WBC (Bld) 1.4 % Normal 0.9-7.0 [facility] Comment on above: Performed By: #### C BC #### [facility] [address] [place] [address] Dr. Ekta Funk Erythrocyte distribution width (RBC) [Ratio] 12.9 % Normal 11.0-15.0 [facility] Comment on above: Performed By: #### C BC #### [facility] [address] [place] [address] Dr. Ekta Funk Hematocrit (Bld) [Volume fraction] 34.7 % Critically low 36.0-48.0 [facility] Comment on above: Performed By: #### C BC #### [facility] [address] [place] [address] Dr. Ekta Funk Hemoglobin (Bld) [Mass/Vol] 11.8 g/dL Critically low 12.0-16.0 [facility] Comment on above: Performed By: #### C BC #### [facility] [address] [place] [address] Dr. Ekta Funk IG # 0.09 10e3/ul Critically high 0.00-0.03 [facility] Comment on above: Performed By: #### C BC #### [facility] [address] [place] [address] Dr. Ekta Funk IG % 0.8 % Critically high 0.0-0.5 [facility] Comment on above: Performed By: #### C BC #### [facility] [address] [place] [address] Dr. Ekta Funk LYMPH # 1.9 103/ul Normal 1.2-3.8 [facility] Comment on above: Performed By: #### C BC #### [facility] [address] [place] [address] Dr. Ekta Funk Lymphocytes/100 WBC (Bld) 16.1 % Critically low 20.5-60.0 [facility] Comment on above: Performed By: #### C BC #### [facility] [address] [place] [address] Dr. Ekta Funk MANUAL DIFF REQ NO Normal [facility] Comment on above: Performed By: #### C BC #### [facility] [address] [place] [address] Dr. Ekta Funk MCH (RBC) [Entitic mass] 32.6 pg Normal 26.7-34.0 [facility] Comment on above: Performed By: #### C BC #### [facility] [address] [place] [address] Dr. Ekta Funk MCHC (RBC) [Mass/Vol] 34.0 g/dL Normal 29.9-35.2 [facility] Comment on above: Performed By: #### C BC #### [facility] [address] [place] [address] Dr. Ekta Funk MCV (RBC) [Entitic vol] 95.9 fL Normal 81.0-99.0 [facility] Comment on above: Performed By: #### C BC #### [facility] [address] [place] [address] Dr. Ekta Funk MONO # 0.8 103/ul Normal 0.3-0.8 [facility] Comment on above: Performed By: #### C BC #### [facility] [address] [place] [address] Dr. Ekta Funk Monocytes/100 WBC (Bld) 7.0 % Normal 1.7-12.0 [facility] Comment on above: Performed By: #### C BC #### [facility] [address] [place] [address] Dr. Ekta Funk NEUT # 8.8 103/ul Critically high 1.4-6.5 [facility] Comment on above: Performed By: #### C BC #### [facility] [address] [place] [address] Dr. Ekta Funk Neutrophils/100 WBC (Bld) 74.5 % Normal 43.0-75.0 [facility] Comment on above: Performed By: #### C BC #### [facility] [address] [place] [address] Dr. Ekta Funk Platelet mean volume (Bld) [Entitic vol] 9.8 fL Normal 9.5-13.5 [facility] Comment on above: Performed By: #### C BC #### [facility] [address] [address] [address] Ekta Funk PLT 203 103/ul Normal 150-450 [facility] Comment on above: Performed By: #### C BC #### [facility] [address] [address] [address] Ekta Funk RBC 3.62 106/ul Critically low 4.20-5.40 [facility] Comment on above: Performed By: #### C BC #### [facility] [address] [address] [address] Ekta Funk WBC 11.8 103/ul Critically high 4.0-11.0 [facility] Comment on above: Performed By: #### C BC #### [facility] [address] [place] [address] Dr. Ekta Funk CULTURE URINEon 10-20-2022 CULTURE URINE Culture Observations : NO GROWTH. Normal [facility] Comment on above: Performed By: #### I NSULIN #### [facility] [address] [address] [address] Ekta Funk Covid-19 PCR ([facility])on 10-11 SARS-CoV-2 (COVID-19) RNA GANESH+probe Ql (Unsp spec) Not detected Normal NOT DETECTED [facility] Comment on above: Result Comment: When [...] for this test is supported by the [place] of Health and Human Service's declaration that [...] longer be used). Performed By: #### B 12FOCAROLYN Lui IRON #### [facility] [address] [address] [address] Ekta Funk ECHOCARDIO M/2D COMPLETEon 0 10-20-2022 ECHOCARDIO M/2D COMPLETE Patient: SHEILA MAC Exam Date: 10/20/2022 : 1950 Gender:F Ordering : DR KRZYSZTOF HARP . Admission #: [id number] Family : Order #: [id number] CLICK HERE TO VIEW EXAM ECHOCARDIOGRAM REPORT [...] M.D. on 10/20/2022 at 14:57 Normal [facility] PROF 14(COMP METB)on 023 Albumin [Mass/Vol] 2.8 g/dL Critically low 3.4-5.0 [facility] Comment on above: Performed By: #### B 12FOL, VITAD, IRON #### [facility] [address] [place] [address] Dr. Ekta Funk Albumin/Globulin [Mass ratio] 0.7 {ratio} Normal [facility] Comment on above: Performed By: #### B 12FOL, VITAD, IRON #### [facility] [address] [place] [address] Dr. Ekta Funk ALP [Catalytic activity/Vol] 84 U/L Normal 46-116 [facility] Comment on above: Performed By: #### B 12FOL, VITAD, IRON #### [facility] [address] [place] [address] Dr. Ekta Funk ALT [Catalytic activity/Vol] 29 U/L Normal 14-59 [facility] Comment on above: Performed By: #### B 12FOL, VITAD, IRON #### [facility] [address] [place] [address] Dr. Ekta Funk Anion gap [Moles/Vol] 15.9 mmol/L Normal [facility] Comment on above: Performed By: #### B 12FOL, VITAD, IRON #### [facility] [address] [place] [address] Dr. Ekta Funk AST [Catalytic activity/Vol] 15 U/L Normal 15-37 [facility] Comment on above: Performed By: #### B 12FOL, VITAD, IRON #### [facility] [address] [place] [address] Dr. Ekta Funk Bilirubin [Mass/Vol] 0.3 mg/dL Normal 0.2-1.0 [facility] Comment on above: Performed By: #### B 12FOL, VITAD, IRON #### [facility] [address] [place] [address] Dr. Ekta Funk Calcium [Mass/Vol] 8.9 mg/dL Normal 8.5-10.1 [facility] Comment on above: Performed By: #### B 12FOL, VITAD, IRON #### [facility] [address] [place] [address] Dr. Ekta Funk Chloride [Moles/Vol] 103 mmol/L Normal 98-107 [facility] Comment on above: Performed By: #### B 12FOL, VITAD, IRON #### [facility] [address] [place] [address] Dr. Ekta Funk CO2 [Moles/Vol] 26.3 mmol/L Normal 21.0-32.0 [facility] Comment on above: Performed By: #### B 12FOL, VITAD, IRON #### [facility] [address] [place] [address] Dr. Ekta Funk Creatinine [Mass/Vol] 1.99 mg/dL Critically high 0.55-1.02 [facility] Comment on above: Performed By: #### B 12FOL, VITAD, IRON #### [facility] [address] [place] [address] Dr. Ekta Funk EGFR-AF CANADIAN 30 mL/min/1.73m2 Critically low >=60 [facility] Comment on above: Performed By: #### B 12FOL, VITAD, IRON #### [facility] [address] [place] [address] Dr. Ekta Funk EGFR-NON AF CANADIAN 24 mL/min/1.73m2 Critically low >=60 [facility] Comment on above: Performed By: #### B 12FOL, VITAD, IRON #### [facility] [address] [place] [address] Dr. Ekta Funk Globulin (S) [Mass/Vol] 4.1 g/dL Normal [facility] Comment on above: Performed By: #### B 12FOL, VITAD, IRON #### [facility] [address] [place] [address] Dr. Ekta Funk Glucose [Mass/Vol] 115 mg/dL Critically high 74-106 [facility] Comment on above: Performed By: #### B 12FOL, VITAD, IRON #### [facility] [address] [place] [address] Dr. Ekta Funk Potassium [Moles/Vol] 5.2 mmol/L Critically high 3.5-5.1 [facility] Comment on above: Performed By: #### B 12FOL, VITAD, IRON #### [facility] [address] [address] [address] Ekta Funk Protein [Mass/Vol] 6.9 g/dL Normal 6.4-8.2 [facility] Comment on above: Performed By: #### B 12FOL, VITAD, IRON #### [facility] [address] [place] [address] Dr. Ekta Funk Sodium [Moles/Vol] 140 mmol/L Normal 136-145 [facility] Comment on above: Performed By: #### B 12FOL, VITAD, IRON #### [facility] [address] [address] [address] Ekta Funk Urea nitrogen [Mass/Vol] 45.0 mg/dL Critically high 7.0-18.0 [facility] Comment on above: Performed By: #### B 12FOL, VITAD, IRON #### [facility] [address] [place] [address] Dr. Ekta Funk Urea nitrogen/Creatinine [Mass ratio] 22.6 mg/mg Normal [facility] Comment on above: Performed By: #### B 12FOL, VITAD, IRON #### [facility] [address] [place] [address] Dr. Ekta Funk T4on 10-20-2022 T4 [Mass/Vol] 6.10 ug/dL Normal 4.80-13.90 [facility] Comment on above: Performed By: #### B 12FOL, VITAD, IRON #### [facility] [address] [place] [address] Dr. Ekta Funk TSHon 10-20-2022 TSH 1.336 uIU/mL Normal 0.358-3.740 [facility] Comment on above: Performed By: #### B 12FOL, VITAD, IRON #### [facility] [address] [place] [address] Dr. Ekta Funk UA RANDOM W/MICROSCOPICon BACTERIA TRACE Abnormal NONE SEEN [facility] Comment on above: Performed By: #### B 12FOL, VITAD, IRON #### [facility] [address] [place], [place] [id number] Dr. Ekta Funk Bilirubin Ql (U) Negative Normal NEGATIVE [facility] Comment on above: Performed By: #### B 12FOL, VITAD, IRON #### [facility] [address] [place] [address] Dr. Ekta Funk CAST NONE SEEN Normal NONE SEEN [facility] Comment on above: Performed By: #### B 12FOL, VITAD, IRON #### [facility] [address] [place] [address] Dr. Ekta Funk Clarity (U) CLEAR Normal CLEAR [facility] Comment on above: Performed By: #### B 12FOL, VITAD, IRON #### [facility] [address] [place] [address] Dr. Ekta Funk Color (U) LT. YELLOW Normal YELLOW [facility] Comment on above: Performed By: #### B 12FOL, VITAD, IRON #### [facility] [address] [place] [address] Dr. Ekta Funk Crystals LM Nom (Urine sed) NONE SEEN Normal NONE SEEN [facility] Comment on above: Performed By: #### B 12FOL, VITAD, IRON #### [facility] [address] [place] [address] Dr. Ekta Funk Epithelial cells LM Ql (Urine sed) RARE Normal NONE SEEN /RARE [facility] Comment on above: Performed By: #### B 12FOL, VITAD, IRON #### [facility] [address] [place] [address] Dr. Ekta Funk Glucose Ql (U) Negative Normal NEGATIVE [facility] Comment on above: Performed By: #### B 12FOL, VITAD, IRON #### [facility] [address] [place] [address] Dr. Ekta Funk Hemoglobin Ql (U) Negative Normal NEGATIVE [facility] Comment on above: Performed By: #### B 12FOL, VITAD, IRON #### [facility] [address] [place] [address] Dr. Ekta Funk Ketones Ql (U) Negative Normal NEGATIVE [facility] Comment on above: Performed By: #### B 12FOL, VITAD, IRON #### [facility] [address] [address] [address] Ekta Funk LEUKOCYTES Negative Normal NEGATIVE [facility] Comment on above: Performed By: #### B 12FOL, VITAD, IRON #### [facility] [address] [place] [address] Dr. Ekta Funk MUCOUS NONE SEEN Normal NONE SEEN [facility] Comment on above: Performed By: #### B 12FOL, VITAD, IRON #### [facility] [address] [address] [address] Ekta Funk Nitrite Ql (U) Negative Normal NEGATIVE [facility] Comment on above: Performed By: #### B 12FOL, VITAD, IRON #### [facility] [address] [place] [address] Dr. Ekta Funk pH (U) 6.0 [pH] Normal 5-9 [facility] Comment on above: Performed By: #### B 12FOL, VITAD, IRON #### [facility] [address] [place] [address] Dr. Ekta Funk RBC 0-2 Normal 0-2 [facility] Comment on above: Performed By: #### B 12FOL, VITAD, IRON #### [facility] [address] [place] [address] Dr. Ekta Funk SPEC GRAVITY <=1.005 Abnormal 1.005-<=1.025 [facility] Comment on above: Performed By: #### B 12FOL, VITAD, IRON #### [facility] [address] [place] [address] Dr. Ekta Funk UA PROTEIN Negative Normal NEGATIVE/ TRACE [facility] Comment on above: Performed By: #### B 12FOL, VITAD, IRON #### [facility] [address] [place] [address] Dr. Ekta Funk Urobilinogen Qn (U) 0.2 {Ivan'U}/dL Normal 0.2 - 1. 0 [facility] Comment on above: Performed By: #### B 12FOL, VITAD, IRON #### [facility] [address] [place] [address] Dr. Ekta Funk WBC NONE SEEN Normal NONE SEEN [facility] Comment on above: Performed By: #### B 12FOL, VITAD, IRON #### [facility] [address] [place] [address] Dr. Ekta Funk BNPon 10-19-2022 Natriuretic peptide B (Bld) [Mass/Vol] 1355.0 pg/mL Critically high <=900.0 [facility] Comment on above: Performed By: #### B 12FOL, VITAD, IRON #### [facility] [address] [place] [address] Dr. Ekta Funk INSULINon 10-19-2022 Insulin 12.4 uIU/mL Normal 2.6-24.9 [facility] Comment on above: Performed By: #### I NSULIN #### [facility] [address] [place] [address] Dr. Ekta Funk OCC BLD IMMUNO SCREENon OCCULT BLOOD Positive Abnormal NEGATIVE [facility] Comment on above: Performed By: #### B 12FOL, VITAD, IRON #### [facility] [address] [place] [address] Dr. Ekta Funk PROF CHEM 8 (BAS METB)on Anion gap [Moles/Vol] 15.8 mmol/L Normal [facility] Comment on above: Performed By: #### B 12FOL, VITAD, IRON #### [facility] [address] [place] [address] Dr. Ekta Funk Calcium [Mass/Vol] 8.8 mg/dL Normal 8.5-10.1 [facility] Comment on above: Performed By: #### B 12FOL, VITAD, IRON #### [facility] [address] [place] [address] Dr. Ekta Funk Chloride [Moles/Vol] 107 mmol/L Normal 98-107 [facility] Comment on above: Performed By: #### B 12FOL, VITAD, IRON #### [facility] [address] [address] [address] Ekta Funk CO2 [Moles/Vol] 21.5 mmol/L Normal 21.0-32.0 [facility] Comment on above: Performed By: #### B 12FOL, VITAD, IRON #### [facility] [address] [place] [address] Dr. Ekta Funk Creatinine [Mass/Vol] 1.62 mg/dL Critically high 0.55-1.02 [facility] Comment on above: Performed By: #### B 12FOL, VITAD, IRON #### [facility] [address] [place] [address] Dr. Ekta Funk EGFR-AF CANADIAN 38 mL/min/1.73m2 Critically low >=60 [facility] Comment on above: Performed By: #### B 12FOL, VITAD, IRON #### [facility] [address] [place] [address] Dr. Ekta Funk EGFR-NON AF CANADIAN 31 mL/min/1.73m2 Critically low >=60 [facility] Comment on above: Performed By: #### B 12FOL, VITAD, IRON #### [facility] [address] [place] [address] Dr. Ekta Funk Glucose [Mass/Vol] 134 mg/dL Critically high 74-106 [facility] Comment on above: Performed By: #### B 12FOL, VITAD, IRON #### [facility] [address] [place] [address] Dr. Ekta Funk Potassium [Moles/Vol] 5.3 mmol/L Critically high 3.5-5.1 [facility] Comment on above: Performed By: #### B 12FOL, VITAD, IRON #### [facility] [address] [place] [address] Dr. Ekta Funk Sodium [Moles/Vol] 139 mmol/L Normal 136-145 [facility] Comment on above: Performed By: #### B 12FOL, VITAD, IRON #### [facility] [address] [place] [address] Dr. Ekta Funk Urea nitrogen [Mass/Vol] 37.0 mg/dL Critically high 7.0-18.0 [facility] Comment on above: Performed By: #### B CAROLYN LAUGHLIN, IRON #### [facility] [address] [place] [address] Dr. Ekta Funk Urea nitrogen/Creatinine [Mass ratio] 22.8 mg/mg Normal [facility] Comment on above: Performed By: #### B CAROLYN LAUGHLIN, IRON #### [facility] [address] [place] [address] Dr. Ekta Funk TROPONIN, HIGH SENSITIVITYon 10-19-2022 HSTROP 53.2 pg/mL Critically high 4.0-51.3 [facility] Comment on above: Result Comment: CUT- OFF POINTS HAVE BEEN ESTABLISHED BASED ON THE FOURTH UNIVERSAL DEFINITIONS OF MYOCARDIAL INFARCTION. THE UPPER REFERENCE LIMIT (URL) OF TROPONIN, DEFINED THE 99TH PERCENTILE OF cTnI DISTRIBUTION IN A REFERENCE POPULATION, HAS BEEN CONFIRMED THE DECISION THRESHOLD FOR [place] DIAGNOSIS. Performed By: #### B CAROLYN LAUGHLIN, IRON #### [facility] [address] [place] [address] Dr. Ekta Funk BNPon 10-18-2022 Natriuretic peptide B (Bld) [Mass/Vol] 1386.0 pg/mL Critically high <=900.0 [facility] Comment on above: Performed By: #### C VDTBH #### [facility] [address] [place] [address] Dr. Ekta Funk CARDIAC BRITTANIE ADMITon 023 CK [Catalytic activity/Vol] 34 U/L Normal 26-192 [facility] Comment on above: Performed By: #### C VDTBH #### [facility] [address] [place] [address] Dr. Ekta Funk CK.MB [Mass/Vol] 1.43 ng/mL Normal <=3.60 [facility] Comment on above: Performed By: #### C VDTBH #### [facility] [address] [place] [address] Dr. Ekta Funk HSTROP 74.1 pg/mL Critically high 4.0-51.3 [facility] Comment on above: Result Comment: CUT- OFF POINTS HAVE BEEN ESTABLISHED BASED ON THE FOURTH UNIVERSAL DEFINITIONS OF MYOCARDIAL INFARCTION. THE UPPER REFERENCE LIMIT (URL) OF TROPONIN, DEFINED THE 99TH PERCENTILE OF cTnI DISTRIBUTION IN A REFERENCE POPULATION, HAS BEEN CONFIRMED THE DECISION THRESHOLD FOR [place] DIAGNOSIS. Performed By: #### C VDTBH #### [facility] [address] [place] [address] Dr. Ekta Funk EVELYN 52 ng/mL Normal 9-82 [facility] Comment on above: Performed By: #### C VDTBH #### [facility] [address] [place] [address] Dr. Ekta Funk CBC AUTO DIFFon 10-18-2022 BASO # 0.0 103/ul Normal 0.0-0.1 [facility] Comment on above: Performed By: #### C BC #### [facility] [address] [place] [address] Dr. Ekta Funk Basophils/100 WBC (Bld) 0.3 % Normal 0.2-2.0 [facility] Comment on above: Performed By: #### C BC #### [facility] [address] [place] [address] Dr. Ekta Funk EO # 0.1 103/ul Normal 0.0-0.7 [facility] Comment on above: Performed By: #### C BC #### [facility] [address] [place] [address] Dr. Ekta Funk Eosinophils/100 WBC (Bld) 0.9 % Normal 0.9-7.0 [facility] Comment on above: Performed By: #### C BC #### [facility] [address] [place] [address] Dr. Ekta Funk Erythrocyte distribution width (RBC) [Ratio] 13.2 % Normal 11.0-15.0 [facility] Comment on above: Performed By: #### C BC #### [facility] [address] [place] [address] Dr. Ekta Funk Hematocrit (Bld) [Volume fraction] 38.9 % Normal 36.0-48.0 [facility] Comment on above: Performed By: #### C BC #### [facility] [address] [place] [address] Dr. Ekta Funk Hemoglobin (Bld) [Mass/Vol] 12.4 g/dL Normal 12.0-16.0 [facility] Comment on above: Performed By: #### C BC #### [facility] [address] [place] [address] Dr. Ekta Funk IG # 0.08 10e3/ul Critically high 0.00-0.03 [facility] Comment on above: Performed By: #### C BC #### [facility] [address] [place] [address] Dr. Ekta Funk IG % 0.5 % Normal 0.0-0.5 [facility] Comment on above: Performed By: #### C BC #### [facility] [address] [place] [address] Dr. Ekta Funk LYMPH # 1.4 103/ul Normal 1.2-3.8 [facility] Comment on above: Performed By: #### C BC #### [facility] [address] [place] [address] Dr. Ekta Funk Lymphocytes/100 WBC (Bld) 9.6 % Critically low 20.5-60.0 [facility] Comment on above: Performed By: #### C BC #### [facility] [address] [place] [address] Dr. Ekta Funk MANUAL DIFF REQ NO Normal [facility] Comment on above: Performed By: #### C BC #### [facility] [address] [place] [address] Dr. Ekta Funk MCH (RBC) [Entitic mass] 32.3 pg Normal 26.7-34.0 [facility] Comment on above: Performed By: #### C BC #### [facility] [address] [place] [address] Dr. Ekta Funk MCHC (RBC) [Mass/Vol] 31.9 g/dL Normal 29.9-35.2 [facility] Comment on above: Performed By: #### C BC #### [facility] [address] [address] [address] Ekta Funk MCV (RBC) [Entitic vol] 101.3 fL Critically high 81.0-99.0 [facility] Comment on above: Performed By: #### C BC #### [facility] [address] [address] [address] Ekta Funk MONO # 0.9 103/ul Critically high 0.3-0.8 [facility] Comment on above: Performed By: #### C BC #### [facility] [address] [address] [address] Ekta Funk Monocytes/100 WBC (Bld) 6.3 % Normal 1.7-12.0 [facility] Comment on above: Performed By: #### C BC #### [facility] [address] [address] [address] Ekta Funk NEUT # 12.0 103/ul Critically high 1.4-6.5 [facility] Comment on above: Performed By: #### C BC #### [facility] [address] [address] [address] Ekta Funk Neutrophils/100 WBC (Bld) 82.4 % Critically high 43.0-75.0 [facility] Comment on above: Performed By: #### C BC #### [facility] [address] [address] [address] Ekta Funk Platelet mean volume (Bld) [Entitic vol] 9.7 fL Normal 9.5-13.5 [facility] Comment on above: Performed By: #### C BC #### [facility] [address] [address] [address] Ekta Funk PLT 176 103/ul Normal 150-450 [facility] Comment on above: Performed By: #### C BC #### [facility] [address] [address] [address] Ekta Funk RBC 3.84 106/ul Critically low 4.20-5.40 [facility] Comment on above: Performed By: #### C BC #### [facility] [address] [address] [address] Ekta Funk WBC 14.6 103/ul Critically high 4.0-11.0 [facility] Comment on above: Performed By: #### C BC #### [facility] [address] [address] [address] Ekta Funk FREE THYROXINE INDEX T7on FTI 2.34 Normal 1.30-4.50 [facility] Comment on above: Performed By: #### C VDTBH #### [facility] [address] [address] [address] Ekta Funk T3U 36.0 % Normal 30.0-39.0 [facility] Comment on above: Performed By: #### C VDTBH #### [facility] [address] [address] [address] Ekta Funk T4 [Mass/Vol] 6.50 ug/dL Normal 4.80-13.90 [facility] Comment on above: Performed By: #### C VDTBH #### [facility] [address] [address] [address] Ekta Funk GLYCOHEMOGLOBIN A1Con 2022 ADA RECOMMENDATION SEE BELOW Normal [facility] Comment on above: Result Comment: ADA RECOMMENDED LIMIT 4.0 - 6.0 ADA THERAPEUTIC TARGET < 7.0 ACTION SUGGESTED > 7.0 Performed By: #### B 12FOL, VITAD, IRON #### [facility] [address] [address] [address] Ekta Funk Glucose [Mass/Vol] 140 mg/dL Normal [facility] Comment on above: Performed By: #### B 12FOL, VITAD, IRON #### [facility] [address] [address] [address] Ekta Funk HbA1c (Bld) [Mass fraction] 6.5 % Critically high 4.5-6.2 [facility] Comment on above: Performed By: #### B 12FOL, VITAD, IRON #### [facility] [address] [address] [address] Ekta Funk IRONon 10-18-2022 Iron [Mass/Vol] 62.0 ug/dL Normal 50.0-170.0 [facility] Comment on above: Performed By: #### B 12FOL, VITAD, IRON #### [facility] [address] [address] [address] Ekta Funk LIPID PROFILEon 10-18-2022 CHOL-HDL RATIO NORM SEE BELOW Normal [facility] Comment on above: Result Comment: 3.3 - 4.4 LOW RISK 4.4 - 7.1 AVERAGE RISK 7.1 - 11.0 MODERATE RISK >11.0 HIGH RISK Performed By: #### C VDTBH #### [facility] [address] [place] [address] Dr. Ekta Funk Cholesterol [Mass/Vol] 242 mg/dL Critically high <=200 [facility] Comment on above: Performed By: #### C VDTBH #### [facility] [address] [address] [address] Ekta Funk Cholesterol in HDL [Mass/Vol] 74 mg/dL Critically high 40-60 [facility] Comment on above: Performed By: #### C VDTBH #### [facility] [address] [place] [address] Dr. Ekta Funk Cholesterol in LDL [Mass/Vol] 139.4 mg/dL Normal [facility] Comment on above: Performed By: #### C VDTBH #### [facility] [address] [address] [address] Ekta Funk Cholesterol.total/Ch olesterol in HDL [Mass ratio] 3.3 {ratio} Normal [facility] Comment on above: Performed By: #### C VDTBH #### [facility] [address] [address] [address] Ekta Funk HDL NORMAL > or = 60 mg/dl - LO W CARDIOVASCULAR RISK <40 mg/dl - HIGH CARDIOVASCULAR RISK Normal [facility] Comment on above: Performed By: #### C VDTBH #### [facility] [address] [address] [address] Ekta Funk LDL CALC NORMAL SEE BELOW Normal [facility] Comment on above: Result Comment: <100 mg/dl OPTIMAL 100 - 129 mg/dl NEAR OR ABOVE OPTIMAL 130 - 159 mg/dl BORDERLINE HIGH 160 - 189 mg/dl HIGH >190 mg/dl VERY HIGH Performed By: #### C VDTBH #### [facility] [address] [address] [address] Ekta Funk Triglyceride [Mass/Vol] 143 mg/dL Normal <=150 [facility] Comment on above: Performed By: #### C VDTBH #### [facility] [address] [address] [address] Ekta Funk VLDL CALC 28.6 mg/dL Normal [facility] Comment on above: Performed By: #### C VDTBH #### [facility] [address] [place] [address] Dr. Ekta Funk PROF 14(COMP METB)on 023 Albumin [Mass/Vol] 2.8 g/dL Critically low 3.4-5.0 [facility] Comment on above: Performed By: #### C VDTBH #### [facility] [address] [place] [address] Dr. Ekta Funk Albumin/Globulin [Mass ratio] 0.7 {ratio} Normal [facility] Comment on above: Performed By: #### C VDTBH #### [facility] [address] [address] [address] Ekta Funk ALP [Catalytic activity/Vol] 90 U/L Normal 46-116 [facility] Comment on above: Performed By: #### C VDTBH #### [facility] [address] [address] [address] Ekta Funk ALT [Catalytic activity/Vol] 26 U/L Normal 14-59 [facility] Comment on above: Performed By: #### C VDTBH #### [facility] [address] [place] [address] Dr. Ekta Funk Anion gap [Moles/Vol] 14.5 mmol/L Normal [facility] Comment on above: Performed By: #### C VDTBH #### [facility] [address] [address] [address] Ekta Funk AST [Catalytic activity/Vol] 14 U/L Critically low 15-37 [facility] Comment on above: Performed By: #### C VDTBH #### [facility] [address] [address] [address] Ekta Funk Bilirubin [Mass/Vol] 0.4 mg/dL Normal 0.2-1.0 [facility] Comment on above: Performed By: #### C VDTBH #### [facility] [address] [address] [address] Ekta Funk Calcium [Mass/Vol] 8.9 mg/dL Normal 8.5-10.1 [facility] Comment on above: Performed By: #### C VDTBH #### [facility] [address] [address] [address] Ekta Funk Chloride [Moles/Vol] 106 mmol/L Normal 98-107 [facility] Comment on above: Performed By: #### C VDTBH #### [facility] [address] [address] [address] Ekta Funk CO2 [Moles/Vol] 23.5 mmol/L Normal 21.0-32.0 [facility] Comment on above: Performed By: #### C VDTBH #### [facility] [address] [address] [address] Ekta Funk Creatinine [Mass/Vol] 1.70 mg/dL Critically high 0.55-1.02 [facility] Comment on above: Performed By: #### C VDTBH #### [facility] [address] [address] [address] Ekta Funk EGFR-AF CANADIAN 36 mL/min/1.73m2 Critically low >=60 [facility] Comment on above: Performed By: #### C VDTBH #### [facility] [address] [address] [address] Ekta Funk EGFR-NON AF CA[place]DIAN 29 mL/min/1.73m2 Critically low >=60 [facility] Comment on above: Performed By: #### C VDTBH #### [facility] [address] [place] [address] Dr. Ekta Funk Globulin (S) [Mass/Vol] 4.0 g/dL Normal [facility] Comment on above: Performed By: #### C VDTBH #### [facility] [address] [place] [address] Dr. Ekta Funk Glucose [Mass/Vol] 99 mg/dL Normal 74-106 [facility] Comment on above: Performed By: #### C VDTBH #### [facility] [address] [place] [address] Dr. Ekta Funk Potassium [Moles/Vol] 5.0 mmol/L Normal 3.5-5.1 [facility] Comment on above: Performed By: #### C VDTBH #### [facility] [address] [place] [address] Dr. Ekta Funk Protein [Mass/Vol] 6.8 g/dL Normal 6.4-8.2 [facility] Comment on above: Performed By: #### C VDTBH #### [facility] [address] [place] [address] Dr. Ekta Funk Sodium [Moles/Vol] 139 mmol/L Normal 136-145 [facility] Comment on above: Performed By: #### C VDTBH #### [facility] [address] [place] [address] Dr. Ekta Funk Urea nitrogen [Mass/Vol] 36.0 mg/dL Critically high 7.0-18.0 [facility] Comment on above: Performed By: #### C VDTBH #### [facility] [address] [place] [address] Dr. Ekta Funk Urea nitrogen/Creatinine [Mass ratio] 21.2 mg/mg Normal [facility] Comment on above: Performed By: #### C VDTBH #### [facility] [address] [place] [address] Dr. Ekta Funk TSHon 10-18-2022 TSH 0.910 uIU/mL Normal 0.358-3.740 [facility] Comment on above: Performed By: #### C VDTB #### [facility] [address] [place] [address] Dr. Ekta Funk Covid-19 PCR ([facility])on 09-10 SARS-CoV-2 (COVID-19) RNA GANESH+probe Ql (Unsp spec) Detected Abnormal NOT DETECTED [facility] Comment on above: Result Comment: This test is not yet approved or cleared by the [place] FDA. When there are no FDA-approved or cleared tests available, and other criteria are met, FDA can make tests available under an emergency access mechanism called an Emergency Use Authorization (EUA). The EUA for this test is supported by the [place] of Health and Human Service's declaration that [...] used). Performed By: #### C MP #### [facility] [address] [place] [address] Dr. Ekta Funk INFLUENZA A AND B AGon 09-25 [facility] SEE BELOW Normal [facility] Comment on above: Result Comment: Nega tive for Flu A protein angiten. Infection due to Flu A cannot be ruled out. Flu A angiten in the sample may be below the detection limit of the test. Performed By: #### B 12FOL, VITAD, IRON #### [facility] [address] [place] [address] Dr. Ekta Funk [facility] Normal [facility] Comment on above: Result Comment: Nega tive for Flu B protein antigen. Infection due to Flu B cannot be ruled out. Flu B antigen in the sample may be below the detection limit of the test. Performed By: #### B 12FOL, VITAD, IRON #### [facility] [address] [place] [address] Dr. Ekta Funk INFLUENZA A AG Negative Normal NEGATIVE SEE COMMENT [facility] Comment on above: Performed By: #### B 12FOL, VITAD, IRON #### [facility] [address] [address] [address] Ekta Funk INFLUENZA B AG Negative Normal NEGATIVE SEE COMMENT [facility] Comment on above: Performed By: #### B 12FOL, VITAD, IRON #### [facility] [id number] Ekta Funk US CAROTID ART BILon [...] by: GODWIN BECK Date: 2022-05-26 16:06 Normal [facility] MRI BRAIN WO CONon 2 MRI BRAIN [...] by: DANIEL MARIE Date: 2022-05-25 10:45 Normal [facility] ECHOCARDIO M/2D COMPLETEon 0 05-24-2022 ECHOCARDIO M/2D COMPLETE Patient: SHEILA MAC Exam Date: 05/24/2022 : 1950 Gender:F Ordering : DR KRZYSZTOF HARP . Admission #: [id number] Family : Order #: [id number] CLICK HERE TO VIEW EXAM ECHOCARDIOGRAM REPORT [...] Mckay M.D. on 05/24/2022 at 14:45 Normal [facility] BASIC METABOLIC PANELon 11-08 Calcium mass conc 9.4 mg/dL Normal 8.6-10.3 [facility] Comment on above: Order Comment: No: D o not add to previous draw Performed By: #### 0 0071 #### [facility] [address] Chloride molar conc 108 mmol/L High 98-107 [facility] Comment on above: Order Comment: No: D o not add to previous draw Performed By: #### 0 0071 #### [facility] [address] [place] [address], [facility] CO2 molar conc 22 mmol/L Normal 21-31 [facility] Comment on above: Order Comment: No: D o not add to previous draw Performed By: #### 0 0071 #### [facility] [address] [place] [address], [facility] Creatinine mass conc 1.18 mg/dL Normal 0.60-1.20 [facility] Comment on above: Order Comment: No: D o not add to previous draw Performed By: #### 0 0071 #### [facility] [address] [place] [address], [facility] GFR/1.73 sq M predicted among blacks MDRD vol rate/area (S/P/Bld) 55 ml/min/1.73sq m Abnormal >60 [facility] Comment on above: Order Comment: No: D o not add to previous draw Performed By: #### 0 0071 #### [facility] [address] [place] [address], [facility] GFR/1.73 sq M predicted among non-blacks MDRD vol rate/area (S/P/Bld) 45 ml/min/1.73sq m Abnormal >60 [facility] Comment on above: Order Comment: No: D o not add to previous draw Performed By: #### 0 0071 #### [facility] [address] [place] [address], [facility] Glucose mass conc 166 mg/dL High 70-100 [facility] Comment on above: Order Comment: No: D o not add to previous draw Performed By: #### 0 0071 #### [facility] [address] [place] [address], [place] Potassium molar conc 4.1 mmol/L Normal 3.5-5.1 [facility] Comment on above: Order Comment: No: D o not add to previous draw Performed By: #### 0 0071 #### [facility] [address] [place] [address], [facility] Sodium molar conc 140 mmol/L Normal 136-145 [facility] Comment on above: Order Comment: No: D o not add to previous draw Performed By: #### 0 0071 #### [facility] [address] [place] [address], [facility] Urea nitrogen mass conc 21 mg/dL Normal 7-25 [facility] Comment on above: Order Comment: No: D o not add to previous draw Performed By: #### 0 0071 #### [facility] [address] [place] [address], [facility] CBC COMPLETE BLOOD COUNTon 0 - Erythrocyte distribution width Ratio (RBC) 12.9 % Normal 11.5-15.0 [facility] Comment on above: Order Comment: No: D o not add to previous draw Performed By: #### 5 [id number] #### [facility] [address] [place] [address], [facility] Hematocrit Volume Fraction (Bld) 36.7 % Normal 36.0-45.0 [facility] Comment on above: Order Comment: No: D o not add to previous draw Performed By: #### 5 0608 #### [facility] [address] [place] [address], [facility] Hemoglobin mass conc (Bld) 12.4 g/dL Normal 12.0-15.0 [facility] Comment on above: Order Comment: No: D o not add to previous draw Performed By: #### 5 0608 #### [facility] [address] [place] [address], [facility] MCH Entitic mass (RBC) 31.2 pg Normal 27.0-33.0 [facility] Comment on above: Order Comment: No: D o not add to previous draw Performed By: #### 5 [id number] #### [facility] [address] MCHC mass conc (RBC) 33.8 g/dL Normal 32.0-35.0 [facility] Comment on above: Order Comment: No: D o not add to previous draw Performed By: #### 5 [id number] #### [facility] [address] [facility]. [address] MCV Entitic volume (RBC) 92.4 fL Normal 82.0-98.0 [facility] Comment on above: Order Comment: No: D o not add to previous draw Performed By: #### 5 [id number] #### [facility] [address] Nucleated RBC/100 WBC Ratio (Bld) 0 % Normal 0-0 [facility] Comment on above: Order Comment: No: D o not add to previous draw Performed By: #### 5 [id number] #### [facility] [address] [facility]. [address] PLAT CNT 227 10*3/uL Normal 150-400 [facility] Comment on above: Order Comment: No: D o not add to previous draw Performed By: #### 5 [id number] #### [facility] [address] [facility]. [address] RBC #/vol (Bld) 3.97 10*6/uL Normal 3.80-5.00 [facility] Comment on above: Order Comment: No: D o not add to previous draw Performed By: #### 5 [id number] #### [facility] [address] [facility] [place] [address], [facility] WBC #/vol (Bld) 5.55 10*3/uL Normal 4.00-10.60 [facility] Comment on above: Order Comment: No: D o not add to previous draw Performed By: #### 5 [id number] #### [facility] [address] Cardiovascular Lab Reporton 11-20-2018 Cardiovascular Lab Report [facility] Patient Name: Bubba [facility] Rahel Sosa MR #: [id number] Department of Physician: Bong Gaspar M.D. Division of Service Date: 11/20/2018 Cardiology Birthdate: 1950 Adult Cardiovascular Room #: 3AB [id number] [facility] [address] [facility] [place] [address] Cardiovascular Laboratory Report INDICATION: The patient is a 68-year-old woman who was evaluated in Cardiology Clinic because of new onset symptoms of shortness of breath on mild exertion. Her stress test showed evidence of ovfcy-bg-jobvjeuf area of inferoapical ischemia; because of that, she was referred for cardiac catheterization. PROCEDURES: 1. Right heart catheterization. 2. Bilateral selective coronary angiography. 3. Limited right femoral angiography. METHOD: Procedure was explained patient with risks and benefits. She signed informed consent. She was brought to production laborer in a fasting state. The right groin area was prepped and draped in usual fashion. Using micropuncture technique, the right common femoral artery was accessed. The inner cannula was advanced. Limited femoral angiography was performed followed by upsizing to a 6-Grenadian x 11 cm sheath. Access was also obtained using the same technique in the right common femoral vein and a 6-Grenadian x 11 cm sheath was placed. A 6-Grenadian Michel catheter was used for right heart catheterization with measurement of pressures and calculation of cardiac output using the estimated Ivory method. Michel catheter was removed. Bilateral selective coronary angiography was then performed using 6-Grenadian JL4 and JR4 diagnostic catheters. Catheters were [...] Gaspar M.D. Date Trans: 11/20/2018 09:31 A/alvina [id number] cc: Krzysztof Harp M.D. [address], [facility] [id number] Normal [facility] BASIC METABOLIC PANELon 11-08 Calcium mass conc 9.5 mg/dL Normal 8.6-10.3 [facility] Comment on above: Order Comment: No: D o not add to previous draw Performed By: #### 0 0071 #### [facility] [address] [place] [address], [facility] Chloride molar conc 105 mmol/L Normal 98-107 The [facility] Comment on above: Order Comment: No: D o not add to previous draw Performed By: #### 0 0071 #### [facility] [address] [place] [address], [place] CO2 molar conc 24 mmol/L Normal 21-31 [facility] Comment on above: Order Comment: No: D o not add to previous draw Performed By: #### 0 0071 #### [facility] [address] [place] [address], [facility] Creatinine mass conc 1.42 mg/dL High 0.60-1.20 [facility] Comment on above: Order Comment: No: D o not add to previous draw Performed By: #### 0 0071 #### [facility] [address] [place] [address], [place] GFR/1.73 sq M predicted among blacks MDRD vol rate/area (S/P/Bld) 45 ml/min/1.73sq m Abnormal >60 [facility] Comment on above: Order Comment: No: D o not add to previous draw Performed By: #### 0 0071 #### [facility] [address] [place] [address], [facility] GFR/1.73 sq M predicted among non-blacks MDRD vol rate/area (S/P/Bld) 36 ml/min/1.73sq m Abnormal >60 [facility] Comment on above: Order Comment: No: D o not add to previous draw Performed By: #### 0 0071 #### [facility] [address] [place] [address], [facility] Glucose mass conc 86 mg/dL Normal 70-100 [facility] Comment on above: Order Comment: No: D o not add to previous draw Performed By: #### 0 0071 #### [facility] [address] [place] [address], [place] Potassium molar conc 4.2 mmol/L Normal 3.5-5.1 [facility] Comment on above: Order Comment: No: D o not add to previous draw Performed By: #### 0 0071 #### [facility] [address] [place] [address], [place] Sodium molar conc 138 mmol/L Normal 136-145 [facility] Comment on above: Order Comment: No: D o not add to previous draw Performed By: #### 0 0071 #### [facility] [address] [place] [address], [facility] Urea nitrogen mass conc 19 mg/dL Normal 7-25 [facility] Comment on above: Order Comment: No: D o not add to previous draw Performed By: #### 0 0071 #### [facility] [address] [place] [address], [facility] CBC COMPLETE BLOOD COUNTon 0 - Erythrocyte distribution width Ratio (RBC) 13.0 % Normal 11.5-15.0 [facility] Comment on above: Order Comment: No: D o not add to previous draw Performed By: #### 5 [id number] #### [facility] [address] [place] [address], [facility] Hematocrit Volume Fraction (Bld) 38.3 % Normal 36.0-45.0 [facility] Comment on above: Order Comment: No: D o not add to previous draw Performed By: #### 5 0608 #### [facility] [address] [place] [address], [facility] Hemoglobin mass conc (Bld) 12.6 g/dL Normal 12.0-15.0 [facility] Comment on above: Order Comment: No: D o not add to previous draw Performed By: #### 5 0608 #### [facility] [address] [place] [address], [facility] MCH Entitic mass (RBC) 31.1 pg Normal 27.0-33.0 [facility] Comment on above: Order Comment: No: D o not add to previous draw Performed By: #### 5 0608 #### [facility] [address] [place] [address], [facility] MCHC mass conc (RBC) 32.9 g/dL Normal 32.0-35.0 [facility] Comment on above: Order Comment: No: D o not add to previous draw Performed By: #### 5 [id number] #### [facility] [address] MCV Entitic volume (RBC) 94.6 fL Normal 82.0-98.0 [facility] Comment on above: Order Comment: No: D o not add to previous draw Performed By: #### 5 [id number] #### [facility] [address] Nucleated RBC/100 WBC Ratio (Bld) 0 % Normal 0-0 [facility] Comment on above: Order Comment: No: D o not add to previous draw Performed By: #### 5 [id number] #### [facility] [address] PLAT CNT 266 10*3/uL Normal 150-400 [facility] Comment on above: Order Comment: No: D o not add to previous draw Performed By: #### 5 [id number] #### [facility] [address] RBC #/vol (Bld) 4.05 10*6/uL Normal 3.80-5.00 [facility] Comment on above: Order Comment: No: D o not add to previous draw Performed By: #### 5 [id number] #### [facility] [address] [facility]. [address] WBC #/vol (Bld) 9.01 10*3/uL Normal 4.00-10.60 [facility] Comment on above: Order Comment: No: D o not add to previous draw Performed By: #### 5 [id number] #### [facility] [address] PROTHROMBIN TIMEon 9 INR Coag RelTime (PPP) 1.07 {INR} Normal 0.91-1.16 [facility] Comment on above: Order Comment: No: [...] 1995;[id number]. Performed By: #### 5 [id number] #### [facility] [address] [facility]. [address] Prothrombin time (PT) Coag time (PPP) 13.9 s Normal 12.3-14.8 [facility] Comment on above: Order Comment: No: D o not add to previous draw Result Comment: ALL RESULTS MUST BE INTERPRETED WITH RESPECT TO BLOOD DRAWING ARTIFACT OR DILUTION ERROR OF ANTICOAGULANT AT THE TIME OF SAMPLING. Performed By: #### 5 [id number] #### [facility] [address] Vital Signs Date Time Vital Sign Value Performing Clinician Joel mcclellan 07-14-2024 13:28-0500 Body mass index (BMI) [Ratio] 23.52 kg/m2 Raven Sesay DO Work Phone: [facility] 07-14-2024 13:28-0500 Body weight 60.24 kg Raven Sesay DO Work Phone: [facility] 07-14-2024 13:28-0500 Diastolic blood pressure 101 mm[Hg] Marianoer Shama DO Work Phone: [facility] 07-14-2024 13:28-0500 Heart rate 87 /min Christopher Shama DO Work Phone: [facility] 07-14-2024 13:28-0500 SaO2% (BldA) [Mass fraction] 91 % Bonifacioopher Shama DO Work Phone: [facility] 07-14-2024 13:28-0500 Systolic blood pressure 155 mm[Hg] Christopher Shama DO Work Phone: [facility] 03-26-2024 11:35-0400 Diastolic blood pressure 106 mm[Hg] MD Krzysztof Harp Work Phone: [facility] 03-26-2024 11:35-0400 Heart rate 76 /min MD Krzysztof Harp Work Phone: [facility] 03-26-2024 11:35-0400 Respiratory rate 18 /min MD Krzysztof Harp Work Phone: [facility] 03-26-2024 11:35-0400 SaO2% (BldA) [Mass fraction] 96 % MD Krzysztof Harp Work Phone: [facility] 03-26-2024 11:35-0400 Systolic blood pressure 152 mm[Hg] MD Krzysztof Harp Work Phone: [facility] 03-26-2024 10:24-0400 Body height 157.48 cm MD Krzysztof Harp Work Phone: [facility] 03-26-2024 10:24-0400 Body weight 62.14 kg MD Krzysztof Harp Work Phone: [facility] 02-19-2024 09:07-0400 Body height 157.48 cm MD Krzysztof Harp Work Phone: [facility] 02-19-2024 09:07-0400 Body mass index (BMI) [Ratio] 24.7 kg/m2 MD Krzysztof Harp Work Phone: [facility] 02-19-2024 09:07-0400 Body weight 61.23 kg MD Krzysztof Harp Work Phone: [facility] 02-19-2024 09:07-0400 Diastolic blood pressure 105 mm[Hg] MD Krzysztof Harp Work Phone: [facility] 02-19-2024 09:07-0400 Heart rate 60 /min MD Krzysztof Harp Work Phone: [facility] [facility] 02-19-2024 09:07-0400 Systolic blood pressure 146 mm[Hg] MD Krzysztof Harp Work Phone: [facility] 02-05-2024 13:37-0400 Diastolic blood pressure 47 mm[Hg] MD Krzysztof Harp Work Phone: [facility] 02-05-2024 13:37-0400 Heart rate 78 /min MD Krzysztof Harp Work Phone: [facility] 02-05-2024 13:37-0400 Respiratory rate 16 /min MD Krzysztof Harp Work Phone: [facility] 02-05-2024 13:37-0400 SaO2% (BldA) [Mass fraction] 97 % MD Krzysztof Harp Work Phone: [facility] 02-05-2024 13:37-0400 Systolic blood pressure 122 mm[Hg] MD Krzysztof Harp Work Phone: [facility] 02-05-2024 11:35-0400 Body height 157.48 cm MD Krzysztof Harp Work Phone: [facility] 02-05-2024 11:35-0400 Body temperature 99.1 [degF] MD Krzysztof Harp Work Phone: [facility] 02-05-2024 11:35-0400 Body weight 62.14 kg MD Krzysztof Harp Work Phone: [facility] Encounters Encounter Date Encounter Type Care Provider Facility Start: 07-17-2024 End: 07-17-2024 Bamboo flowsheet Christopher Shama DO [facility] Start: 07-17-2024 End: 07-17-2024 Bamboo flowsheet Christopher Shama DO Work Phone: [facility] Start: 07-17-2024 End: 07-17-2024 Patient encounter procedure Christopher Shama DO Work Phone: [facility] Comment on above: Cervical radiculopat hy (Primary Dx); Paresthesia Start: 07-17-2024 End: 07-17-2024 ambulatory MARIANOER SHAMA Not Available Start: 07-16-2024 End: 07-16-2024 ambulatory [facility] Start: 07-15-2024 End: 07-15-2024 ambulatory CLEVE SHETH Not Available Start: 07-15-2024 End: 07-15-2024 Office outpatient visit 10 minutes Cleve Sheth DO Work Phone: [facility] Comment on above: Chronic right hip pa in (Primary Dx); Sacral insufficiency fracture with routine healing, subsequent encounter; Closed fracture of multiple pubic rami, right, initial encounter ([facility]) Start: 07-14-2024 End: 07-14-2024 Bamboo flowsheet Christopher Shama DO [facility] Phone[facility] Start: 07-14-2024 End: 07-14-2024 Bamboo flowsheet Christopher Shama DO [facility] Start: 07-14-2024 End: 07-14-2024 Office outpatient new 30 minutes Christopher Shama DO Work Phone: [facility] Comment on above: Paresthesia (Primary Dx) Start: 07-14-2024 End: 07-14-2024 ambulatory RAVEN SESAY Not Available Start: 06-17-2024 End: 06-17-2024 Bamboo flowsheet Cleve Sheth DO Work Phone: [facility] Start: 06-17-2024 End: 06-17-2024 Bamboo flowsheet Cleve Blane Meryl DO Work Phone: [facility] Start: 06-17-2024 End: 06-17-2024 Office outpatient visit 25 minutes Cleve Sheth DO Work Phone: [facility] Comment on above: Chronic right hip pa in (Primary Dx); Sacral insufficiency fracture, initial encounter ([facility]); Closed fracture of multiple pubic rami, right, initial encounter ([facility]) Start: 06-17-2024 End: 06-17-2024 ambulatory CLEVE SHETH Not Available Start: 06-13-2024 End: 06-13-2024 Emergency department patient visit KRZYSZTOF HARP [facility] Start: 06-12-2024 End: 06-12-2024 ambulatory CLEVE SHETH [...] Non-visit MD Krzysztof Harp Work Phone: [facility] Work Phone: Start: 03-26-2024 End: 03-26-2024 Admission to same day surgery center MD Krzysztof Harp Work Phone: [facility] Work Phone: Start: 03-26-2024 End: 03-26-2024 ambulatory MD Krzysztof Harp Work Phone: [facility] Work Phone: Start: 02-19-2024 End: 02-19-2024 ambulatory MD Krzysztof Harp Work Phone: [facility] Work Phone: Start: 02-19-2024 End: 02-19-2024 Patient encounter procedure MD Krzysztof Harp Work Phone: [facility] Work Phone: Start: 02-05-2024 Non-patient / Non-visit MD Krzysztof Harp Work Phone: [facility] Work Phone: Start: 02-05-2024 End: 02-05-2024 Admission to same day surgery center MD Krzysztof Harp Work Phone: [facility] Work Phone: Start: 02-05-2024 End: 02-05-2024 ambulatory MD Krzysztof Harp Work Phone: [facility] Work Phone: Start: 01-16-2024 Non-patient / Non-visit MD Krzysztof Harp Work Phone: [facility] Work Phone: Start: 01-09-2024 End: 01-09-2024 ambulatory DARSHAN HERNANDEZ Not Available Start: 01-07-2024 ambulatory KRZYSZTOF M [facility] Start: 01-16-2023 ambulatory [facility] . Facility : Start: 01-15-2023 End: 01-15-2023 ambulatory APRIL CASTANEDA . Facility:[facility] Start: 01-10-2023 End: 01-11-[address] KRZYSZTOF HARP . Facility:[facility] Start: 12-15-2022 End: 12-15-2022 ambulatory APRIL CASTANEDA . Facility:[facility] Start: 12-15-2022 ambulatory RODRIGUEZ RIVERA [facility] Start: 12-05-2022 End: 12-06-[address] [...] procedure DEFAULT PHYSICIAN Facility:[facility] Procedures Date Procedure Procedure Detail Performing Clinician Start: 07-17-2024 End: 07-17-2024 Needle emg ea extremty w/paraspinl area complete Raven Sesay DO Work Phone: Start: 03-26-2024 Screening colonoscopy MD Krzysztof Harp Work Phone: Start: 02-05-2024 Esophagogastroduodenoscopy MD Krzysztof oconnor Work Phone: Plan of Treatment Date Care Activity Detail Author Start: 08-11-2024 End: 08-11-2024 Patient encounter procedure 08/11/2024 2:15 PM EST [facility] [address] [place] [phone] Raven Sesay DO [address] [place] [address] [facility] Start: 07-17-2024 End: 07-17-2024 Patient encounter procedure [facility] Comment on above: Arrived Start: 07-15-2024 End: 07-15-2024 Patient encounter procedure [facility] Start: 07-14-2024 End: 07-14-2025 EMG 1 Extremeity EMG 1 Extremeity Neurology Routine Paresthesia Expected: 07/14/2024, Expires: 07/14/2025 [facility] Work Phone: Comment on above: Expected: 07/14/2024 , Expires: 07/14/2025 Start: 07-14-2024 End: 07-14-2024 Patient encounter procedure [facility] Comment on above: Brachial plexopathy; Ulnar neuropathy of left upper extremity Start: 06-17-2024 End: 06-17-2024 Patient encounter procedure 06/17/2024 1:30 PM EDT Office Visit [facility] [address] [facility] [address] [place] [id number] Cleve Sheth, DO [address] [facility] [address] [place] [address] Chronic right hip pain (Primary Dx); Sacral insufficiency fracture, initial encounter ([facility]); Closed fracture of multiple pubic rami, right, initial encounter ([facility]) [facility] Comment on above: Chronic right hip pa in (Primary Dx); Sacral insufficiency fracture, initial encounter ([facility]); Closed fracture of multiple pubic rami, right, initial encounter ([facility]) Start: 05-11-2024 Influenza vaccination Influenza Vacc ine (#1) [facility] Start: 03-26-2024 [facility] Start: 02-05-2024 [facility] Patient Education [facility] Work Phone: Immunizations Immunization Date Immunization Notes Care Provider Fa [facility] 06-19-2024 influenza virus vacc ine, unspecified formulation Raven Sesay DO Work Phone: [facility] 06-05-2023 Influenza, Seasonal, Quadrivalent, Adjuvanted Cleve Sheth DO Work Phone: [facility] 06-05-2023 influenza virus vacc ine, unspecified formulation Cleve Sheth DO Work Phone: [facility] 06-12-2022 influenza, high dose seasonal, preservative-free Cleve Sheth DO Work Phone: [facility] 05-30-2022 Influenza, High-dose Seasonal, Quadrivalent, Preservative Free Cleve Sheth DO Work Phone: [facility] 06-15-2021 Influenza, High-dose Seasonal, Quadrivalent, Preservative Free Cleve Sheth DO Work Phone: [facility] 01-10-2021 SARS-CoV-2, Unspecified Amando Sheth DO Work Phone: [facility] 06-18-2018 influenza, high dose seasonal, preservative-free Cleve Sheth DO Work Phone: [facility] 05-22-2017 influenza, injectabl e, quadrivalent, preservative free Cleve Sheth DO Work Phone: [facility] 06-14-2016 influenza, high dose seasonal, preservative-free Cleve Sheth DO Work Phone: [facility] 06-03-2015 influenza, high dose seasonal, preservative-free Cleve Sheth DO Work Phone: [facility] 09-10-2014 pneumococcal conjuga te vaccine, 13 valent Cleve Sheth DO Work Phone: [facility] 06-10-2014 influenza, seasonal, injectable Cleve Sheth DO Work Phone: [facility] 08-11-2013 zoster vaccine, live Cleve ponce DO Work Phone: [facility] 07-14-2013 pneumococcal polysaccharide vaccine, 23 valent Cleve Sheth DO Work Phone: [facility] 06-30-2013 seasonal influenza, intradermal, preservative free Cleve Sheth DO Work Phone: [facility] Payers Date Payer Category Payer Self-pay 2021 Medicare [employer] MEDICARE ADVANTAGE [facility] MEDICARE ADVANTAGE [id number] 2021-Present [address] [place] [address] [id number] 2021 Medicare (Managed Care) [facility] [id number] 2015 Medicare [id number] 1959 Unknown [id number] 1948 Unknown [id number] 2.16.840.1.689275.3.579. 2.647 1948 Unknown [id number] 2.16.840.1.906660.3.579. 2.647 1948 Unknown [id number] 2.16.840.1.593705.3.579. 2.647 1948 Unknown [id number] 2.16.840.1.019389.3.579. 2.647 1948 Unknown [id number] 2.16.840.1.444619.3.579. 2.647 1948 Unknown [id number] 2.16.840.1.485143.3.579. 2.593 1948 Unknown [id number] 2.16.840.1.227881.3.579. 2.593 1948 Unknown [id number] 2.16.840.1.254677.3.579. 2.593 1948 Unknown [id number] 2.16.840.1.506450.3.579. 2.593 1948 Unknown [id number] 2.16.840.1.099737.3.579. 2.593 1948 Unknown [id number] 2.16.840.1.674700.3.579. 2.593 1948 Unknown [id number] 2.16.840.1.711437.3.579. 2.593 1948 Unknown [id number] 2.16.840.1.080835.3.579. 2.593 1948 Unknown [id number] 2.16.840.1.396286.3.579. 2.593 1948 Unknown [id number] 2.16.840.1.859581.3.579. 2.593 1948 Unknown [id number] 2.16.840.1.045261.3.579. 2.593 1948 Unknown [id number] 2.16.840.1.381599.3.579. 2.593 1948 Unknown [id number] 2.16.840.1.749206.3.579. 2.593 1948 Unknown [id number] 2.16.840.1.718773.3.579. 2.59 1948 Unknown [id number] 2.16.840.1.774139.3.579. 2.593 1948 Unknown [id number] 2.16840.1.533651.3.579. 2.59 1948 Unknown [id number] 2.16.840.1.246177.3.579. 2.59 1948 Unknown [id number] 2.16.840.1.433032.3.579. 2.593 1948 Unknown [id number] 2.16.840.1.333670.3.579. 2.593 1948 Unknown [id number] 2.16.840.1.685858.3.579. 2.128 1948 Unknown [id number] 2.16.840.1.840137.3.579. 2.128 1948 Unknown [id number] 2.16.840.1.612754.3.579. 2.128 1948 Unknown [id number] 2.16.840.1.933096.3.579. 2.128 1948 Unknown [id number] 2.16.840.1.355807.3.579. 2.1286 1948 Unknown [id number] 2.16.840.1.563058.3.579. 2.1258 1948 Unknown [id number] 2.16.840.1.571540.3.579. 2.1258 1948 Unknown [id number] 2.16.840.1.339298.3.579. 2.1258 1948 Unknown [id number] 2.16.840.1.237131.3.579. 2.1258 1948 Unknown [id number] 2.16.840.1.686285.3.579. 2.1258 1948 Unknown [id number] 2.16.840.1.770921.3.579. 2.1258 1948 Unknown [id number] 2.840.1.102125.3.579. 2.1258 1948 Unknown [id number] 2.16.840.1.796527.3.579. 2.1258 1948 Unknown [id number] 2.16840.1.643618.3.579. 2.1258 1948 Unknown [id number] 2.16840.1.163031.3.579. 2.1259 Medicare [id number] Unknown Unknown [id number] 2.840.1.068932.3.579. 2.531 Unknown [id number] 2.16840.1.284878.3.579. 2.531 Social History Date Type Detail Facility Start: 05-04-2023 End: 02-05-2024 Tobacco smoking status OKIS Never smoked tobacco (finding) [facility] Start: 1950 Sex Assigned At Female F [facility] Start: 01-09-2024 End: 07-14-2024 Alcoholic beverage intake Lifetime non-drinker (finding) [facility] Start: 01-09-2024 End: 07-14-2024 History of Social function [facility] Start: 01-09-2024 End: 07-14-2024 Tobacco use panel [facility] Start: 1950 Sex assigned at Not on file [facility] Goals Date Patient Goal Desired Activity /State Clinical Notes 02-14-2022 to 07-17-2024 Jarrett Palmer, KALI - 07/17/2024 9:00 AM Vishnu Sheth, DO - 07/15/2024 10:30 AM Javier Sesay, DO - 07/14/2024 1:30 PM Vishnu Arguelles Meryl, DO - 06/17/2024 1:30 PM EDT Note Date & Type Note Facility 07-17-2024 History of Presen t illness Narrative Images from the original note were not included. Reason for Appointment: EMG Patient: Sheila Mac : 1950 EMG Computer: Synchro Referring Physician: Dr. Raven Sesay EMG: CINTHYA ramp supervisor: Jarrett Palmer RT(R) Office Location: [place] Reason for EMG: c/o numbness/tingling in left hand especially in 3rd 4th 5th digits, weakness in left hand. Hx of surgery to neck. No hx of DM. Taking ASA & Plavix. Comments: Procedure was explained to the patient & who expressed understanding. Patient appeared to have tolerated the test well despite some discomfort due to the nature of the test. documented in this encounter [facility] 07-15-2024 History of Presen t illness Narrative Images from the original note were not included. HISTORY OF PRESENT ILLNESS: Sheila Mac is an 74 y.o. @ female. Chief complaint RT hip pain RT hip: using calcitonin NS Pt went to [facility] ER 06/13, X-rays done pelvis and lumbar. RX for lidoderm patches given, she states she could hardly walk. RT hip pain x 3-4 months, worsened on 05/31 after going to the grocery store. Denies injury. She had injections at [facility] in April without relief. She saw Dr Harp 06/02 and 06/04, given IM injections-no relief. She is walking better, using rollator. Mild ache in the thigh. Using pain spray daily Saw Dr Harp 06/02 and 06/04. XR done at [facility] 06/02/24. Using hot icy hot. Given IM torodol, Tramadol RX and PT ordered, XR [facility] [facility] 06/05/24, MRI [facility] 06/12/24, [facility] 06/13/24, lidoderm patches, calcitonin NS MEDICATION: Current Outpatient Medications on File Prior [...] ON AN EMPTY STOMACH FOUR TIMES DAILY [DISCONTINUED] calcitonin, salmon, (Miacalcin) 200 UNIT/ACT nasal spray Administer 1 spray into one nostril Daily 3.7 mL 0 No current facility-administered medications on file prior to visit. MEDICAL HISTORY: Past Medical History: Diagnosis Date Diabetes ([facility]) Diverticulitis Gastric ulcer GERD (gastroesophageal reflux disease) HTN (hypertension) ([facility]) Osteoporosis ([facility]) Pancreatitis Rheumatic fever ALLERGIES: Allergies Allergen Reactions Iodinated Contrast Media Morphine Penicillins Nsaids Rash VITALS: Visit Vitals Smoking Status Never PHYSICAL EXAM: Ortho Exam RIGHT HIP Using Rollator Strength 4/5 ROM 30 IR and 30 ER IMAGING: June 05, 2024 x-rays from the [place] office AP pelvis and lateral of the right hip demonstrate an intact hip joint space. There are no fractures detected. The bone has an osteopenic appearance. The joint spaces are symmetric. There is no obvious effusion or soft tissue swelling. Impression: No acute findings on x-rays of the right hip Hemal Sheth D.O. MRI of the right hip from the [place] imaging center. There is a sacral insufficiency fracture and suspected insufficiency fractures of the right superior and inferior pubic rami. The right hip joint is intact and there are no fractures in the hip. There is loss of articular cartilage in the right hip consistent with arthritis. ASSESSMENT: ICD-10-CM 1. Chronic right hip pain M25.551 G89.29 2. Sacral insufficiency fracture with routine healing, subsequent encounter M84.48XD 3. Closed fracture of multiple pubic rami, right, initial encounter ([facility]) S32.591A calcitonin, salmon, (Miacalcin) 200 UNIT/ACT nasal spray PLAN: We discussed restrictions and expectations. She will continue with Calcitonin, Calcium and Vitamin D. I answered all of the patient's questions. She may participate in physical therapy. Follow up as needed, any issues/concerns follow up sooner. Dr. Sheth obtained history and examined the patient, I am acting as scribe for Dr. Sheth/ashley Sheth D.O. documented in this encounter [facility] 07-14-2024 History of Presen t illness Narrative Images from the original note were not included. Chief complaint: Left hand numbness Subjective Sheila Mac, 74 y.o., female Sheila is here for a neurologic consult at the request of Dr. Sheth for left hand numbness. She is here with her . Patient states she had a colonoscopy in March and when she came out of anesthesia her hand was twisted and has been numb since. She describes this as feeling like she has a glove on her hand. This is constant. She states she has problems using her fingers at times. She does reports dropping items at times. She denies this feeling like pins and needles. She states she had an ultrasound to test her nerves and muscles. She denies having any other testing. Review of Systems Constitutional: Negative for appetite change, fatigue and fever. Respiratory: Negative for cough, shortness of breath and wheezing. Cardiovascular: Negative for chest pain, palpitations and leg swelling. Gastrointestinal: Negative for abdominal pain, constipation, diarrhea and nausea. Musculoskeletal: Negative for arthralgias, gait problem and myalgias. Neurological: Positive for numbness. Negative for dizziness, tremors and headaches. Past Medical History: Diagnosis Date Diabetes ([facility]) Diverticulitis Gastric ulcer GERD (gastroesophageal reflux disease) HTN (hypertension) (CMS/HCC) Osteoporosis (CMS/HCC) Pancreatitis Rheumatic fever Past Surgical History: Procedure Laterality Date APPENDECTOMY BACK SURGERY 1991 HEART CATH HM MAMMOGRAPHY 2012 HYSTERECTOMY Diabetes LUMBAR SPINE SURGERY NECK SURGERY OTHER SURGICAL HISTORY Sigmoid Diverticulosis OTHER SURGICAL HISTORY 2017 perforated ulcer [place] [facility] KNE SURG W/MENISCECTOMY MED/LAT W/SHVG Right 2017 DR GONZALEZ medial/lateral menisectomy, synovectomy, abraison chondroplasty TUBAL LIGATION Family History Problem Relation Name Age of Onset Heart disease Mother Cancer Father Social History Tobacco Use Smoking status: Never Smokeless tobacco: Not on file Substance Use Topics Alcohol use: Never Allergies: Iodinated contrast media, Morphine, Penicillins, and Nsaids Vitals: 07/14/24 1328 BP: (!) 155/101 Pulse: 87 SpO2: 91% Body mass index is 23.52 kg/m . weight: 132 lb 12.8 oz Neurologic exam: Mental status: Awake, alert to person, place and time. Recent and remote memory are intact. Language is fluent without aphasia. Attention and concentration are normal. Fund of knowledge is appropriate for level of education. Cranial nerves: CN II: Visual acuity is normal. Visual vallecillo full to confrontation. CN III, IV, : pupils equal round and reactive to light. Extraocular movements intact. No ptosis present. CN V: Facial sensation is normal. CN VII: Full and symmetric facial movement. CN VIII: Hearing is normal to finger rub bilaterally: CN IX and X: Palate elevates symmetrically. CN XI: Shoulder shrug is normal bilaterally. CN XII: Tongue is midline without atrophy or fasciculation. Motor: RUE Strength deltoid, , biceps , triceps , wrist extensors , wrist flexor , principal systems architect strength 5/5. LUE Strength deltoid , biceps , triceps , wrist extensors , wrist flexor , principal systems architect strength 5/5. RLE Strength illopsoas, quadriceps, tibialis anterior, and gastrocnemius strength 5/5. LLE Strength illopsoas, quadriceps, tibialis anterior, and gastrocnemius strength 5/5. Normal tone x4 extremities. Bulk is normal. Bulk is normal. Sensory: Sensation is intact to light touch throughout Four extremities. Reflexes: RUE biceps reflex 1+ brachioradialis reflex 1+ . LUE biceps reflex 1+ brachioradialis reflex 1+ . RLE knee reflex 0 . LLE knee reflex 0 . Metzger's sign negative. Coordination: [id number] testing and rapid alternating movements are normal Gait: Patient ambulates with a walker Review and summary of old records: Venous Ultrasound of the left upper extremity on 03/27/2024: No ultrasound evidence of DVT Ultrasound duplex of the left upper extremity arterial on 03/27/2024: No significant vessel narrowing or appreciable atherosclerotic disease. Assessment/Plan Diagnoses and all orders for this visit: Paresthesia It is my impression that the patient has paresthesias of the left upper extremity. This seems to have been onset after a colonoscopy earlier this year. She points to paresthesias in the fingertips of the left hand especially the 3rd and 4th digits and it seems to be creating a feeling of wearing a glove on her left hand. I wonder if this has created a mononeuropathy. This does have some overlapping features of median and ulnar type neuropathies. We will need to investigate this further. Plan: EMG of the left upper extremity to evaluate for pathology as above and determine type and severity The patient's was present for the visit today and has provided additional information. Pt has been fully educated on their diagnosis, treatment options, follow up plan, and return instructions documented in this encounter [facility] 06-17-2024 History of Presen t illness Narrative Images from the original note were not included. HISTORY OF PRESENT ILLNESS: Sheila Mac is an 74 y.o. @ female. Chief complaint RT hip pain RT hip: here for MRI results [facility] 06/12/24 Pt went to [facility] ER 06/13, X-rays done pelvis and lumbar. RX for lidoderm patches given, she states she could hardly walk. RT hip pain x 2-3 months, worsened on 05/31 after going to the grocery store. Denies injury. She had injections at [facility] in April without relief. She saw Dr [...] Harp 06/02 and 06/04. XR done at [facility] 06/02/24. Using hot icy hot. Given IM torodol, Tramadol RX and PT ordered, XR [facility] [facility] 06/05/24, MRI [facility] 06/12/24, [facility] ER 06/13/24, lidoderm patches I reviewed notes from [facility] emergency department dated June 13, 2024. Patient [...] Past Medical History: Diagnosis Date Diabetes ([facility]) Diverticulitis Gastric ulcer GERD (gastroesophageal reflux disease) HTN (hypertension) ([facility]) Osteoporosis ([facility]) Pancreatitis Rheumatic fever ALLERGIES: Allergies Allergen Reactions [...] IMAGING: June 05, 2024 x-rays from the [place] office AP pelvis and lateral of the right hip demonstrate an intact hip joint space. There are no fractures detected. The bone has an osteopenic appearance. The joint spaces are symmetric. There is no obvious effusion or soft tissue swelling. Impression: No acute findings on x-rays of the right hip Hemal Sheth D.O. I reviewed an MRI of the right hip from the [facility]. There is a sacral insufficiency fracture and suspected insufficiency fractures of the right superior and inferior pubic rami. The right hip joint is intact and there are no fractures in the hip. There is loss of articular cartilage in the right hip consistent with arthritis. ASSESSMENT: ICD-10-CM 1. Chronic right hip pain M25.551 G89.29 2. Sacral insufficiency fracture, initial encounter ([facility]) M84.48XA 3. Closed fracture of multiple pubic rami, right, initial encounter ([facility]) S32.591A calcitonin, salmon, (Miacalcin) 200 UNIT/ACT nasal [...] Sheth/ashley Sheth D.O. documented in this encounter [facility] 06-05-2024 Telephone encounter Note $40.00 copay / Prior auth needed. [facility] 06-05-2024 Miscellaneous Notes $40.00 copay / Prior auth needed. documented in this encounter [facility] 03-26-2024 Procedure note [facility] 02-05-2024 Procedure note [facility] 12-15-2022 Note Cardiology Follow Up Progress [...] She will be (more content not included)... [facility] 12-15-2022 Note Review of Systems Cardiovascular: Positive for leg swelling. Respiratory: Positive for shortness of breath. Skin: Positive for color change. Neurological: Positive for headaches. All other systems reviewed and are negative. [facility] 07-25-2022 Note PROCEDURE: MRA NECK WO CON [...] authenticated by: DANIEL MARIE Date: 2022-07-25 13:25 [facility] 05-11-2022 Note PROCEDURE: XR FOOT L T MIN 3 VIEWS HISTORY: Pain in left foot ; acute plantar pain COMPARISON: None. FINDINGS: BONES:No fracture, acute abnormality, or significant arthropathy. SOFT TISSUES:No visible soft tissue swelling. EFFUSION:None visible. OTHER: Negative. IMPRESSION: 1. No acute abnormality, significant degenerative changes, or findings to account for patient's symptoms. Electronically authenticated by: DANIEL MARIE Date: 2022-05-11 12:51 [facility] 02-14-2022 Note PROCEDURE: XR KNEE L T 4V or > COMPARISON: None. HISTORY: Osteoarthritis FINDINGS: BONES:No fracture, acute abnormality, or significant arthropathy. SOFT TISSUES:Negative. No visible soft tissue swelling. EFFUSION:Moderate suprapatellar joint effusion OTHER: Negative. IMPRESSION: Moderate joint effusion Electronically authenticated by: GODWIN BECK Date: 2022-02-14 17:30 [facility] Evaluation note No assessment inform ation available [facility] Work Phone: Evaluation note Diagnosis Onset Date Duodenal diverticulum acute Hiatal hernia acute IBS (irritable bowel syndrome) acute Screening for colon cancer a dyan [facility] Work Phone: Evaluation note* Diagnosis Chronic right hip pain- Primary Sacral insufficiency fracture, initial encounter ([facility]) Closed fracture of multiple pubic rami, right, initial encounter ([facility]) documented in this encounter [facility] HealthcareEvaluation note* Diagnosis Paresthesia- Primary Disturbance of skin sensation documented in this encounter [facility]* Diagnosis Chronic right hip pain- Primary Sacral insufficiency fracture with routine healing, subsequent encounter Closed fracture of multiple pubic rami, right, initial encounter ([facility]) documented in this encounter [facility]* Diagnosis Cervical radiculopathy- Primary Brachial neuritis or radiculitis nos Paresthesia Disturbance of skin sensation documented in this encounter [facility] HealthcareHistory and physical note Author Ben Sanchez [facility] February 05, 2024 1:08pm Note Date/Time February 05, 2024 1:08p [facility] [address] [place] [address] Gastroenterology H&P Signed Patient: Sheila Mac MR#: [id number] : 1950 Acct:[id number] Age/Sex: 73 / F Adm Date: 4 Loc: Room: Type: [facility] Attending Dr: Ben Sanchez MD Copies to: [...] <Electronically signed by Ben Sanchez MD> 02/05/24 3444 [facility] Work Phone: History and physical note Author Ben Sanchez [facility] March 26, 2024 10:37am Note Date/Time March 26, 2024 10:3 7am [facility] [address] [place] [address] Gastroenterology H&P Signed Patient: Sheila Mac MR#: [id number] : 1950 Acct:[id number] Age/Sex: 73 / F Adm Date: 4 Loc: Room: Type: [facility] Attending Dr: Ben Sanchez MD Copies to: [...] signed by Ben Sanchez MD> 03/26/24 1037 [facility] Work Phone: [facility] Narrative* Consultation (Routine) - Closed Specialty Diagnoses / Procedures Referred By Contac t Referred To Contact Neurology Diagnoses Brachial plexopathy Ulnar neuropathy of left upper extremity Procedures [place] OFFICE/OUTPATIENT NEW HIGH MDM 60 MINUTES Cleve Sheth, [address] [facility] [address] [place] [address] Phone: tel: fax: Daniel Patiño MD [address] [place] [address] Phone: tel: fax: Referral ID Status Reason Start Date Expiration Date V isits Requested Visits Authorized [id number] Closed Consult and Treat 2024 10/05/2024 1 1 [facility] Summary Purpose Family History No Family History [...] DATE CREATED AUTHOR AUTHOR'S ORGANIZ ATION 12/19/2022 [facility] DATE CREATED AUTHOR AUTHOR'S ORGANIZ ATION 01/18/2023 [facility] DATE CREATED AUTHOR AUTHOR'S ORGANIZ ATION 03/29/2024 [facility] DATE CREATED AUTHOR AUTHOR'S ORGANIZ ATION 06/15/2024 [facility] DATE CREATED AUTHOR AUTHOR'S ORGANIZ ATION 07/18/2024 [facility] DATE CREATED AUTHOR AUTHOR'S ORGANIZ ATION 07/19/2024 [facility] Special[facility] EPIC Care Teams (unrecognized sec [...] Provide r Active Start: March 26, 2024 [employer] Technician Relationship Specialty Start Date End Date Krzysztof Harp MD [address] [place] [address] PCP - General Family Medicine 01/09/24 [employer] Technician Relationship Specialty Start Date End Date Krzysztof Harp MD [address] [place] [address] PCP - General Family Medicine 01/09/24 [employer] Technician Relationship Specialty Start Date End Date Krzysztof Harp MD [address] [place] [address] PCP - General Family Medicine 01/09/24 [employer]r Technician Relationship Specialty Start Date End Date Krzysztof Harp MD [address] [place] [address] PCP - General Family Medicine 01/09/24 [employer]burr Technician Relationship Specialty Start Date End Date Krzysztof Harp MD [address] [place] [address] PCP - General Family Medicine 01/09/24 Raven Sesay DO [address] [id number] Referring Physician Neurology 07/14/24 [employer]r Technician Relationship Specialty Start Date End Date Krzysztof Harp MD [address] [place] [phone] PCP - General Family Medicine 01/09/24 Raven Sesay DO [address] [address] Referring Physician Neurology 07/14/24 Deburr Technician Relationship Specialty Start Date End Date Krzysztof Harp MD [address] [place] [phone] PCP - General Family Medicine 01/09/24 Raven Sesay DO [address] [address] Referring Physician Neurology 07/14/24 Deburr Technician Relationship Specialty Start Date End Date Krzysztof Harp MD [address] [place] [phone] PCP - General Family Medicine 01/09/24 Raven Sesay DO [address] [address] Referring Physician Neurology 07/14/24 Reason for Visit (unrecogniz ed section and content) Reason Comments Pain Reason Onset Date Comments PT Initial Eval 06/05/2024 Contacted and of [facility] to schedule PT eval per Dr. Harp. [...] mid next week. FU 06/18/2024 Contacted to belinda whaley update per Meryl and she said she was not advised to begin w/ PT due to fractures in bones. Reason Comments Follow-up FOR RECORDS PERTAINING TO PATIENTS WHO ARE [...] BE BASED ON THE PRIMARY CLINICAL RECORDS. [employer] provides no warranty or guarantee of the accuracy or completeness of information in this document.
[2024-07-23 15:43] LABS: Basophils Absolute Auto 0.1 10^3/uL (0.0-0.1); Basophils Percent Auto 0.6 % (0.2-2.0); Eosinophils Absolute Auto 0.5 10^3/uL (0.0-0.7); Eosinophils Percent Auto 3.5 % (0.9-7.0); Hematocrit 36.3 % (36.0-48.0); Hemoglobin 11.7 g/dL (12.0-16.0); Immature Granulocytes Pct Auto 0.7 % (0.0-0.5); Lymphocytes Absolute Auto 2.6 10^3/uL (1.2-3.8); Lymphocytes Percent Auto 18.8 % (20.5-60.0); Mean Corpuscular HGB Conc 32.2 g/dL (29.9-35.2); Mean Corpuscular Hemoglobin 31.8 pg (26.7-34.0); Mean Corpuscular Volume 98.6 fL (81.0-99.0); Mean Platelet Volume 9.7 fL (9.5-13.5); Monocytes Absolute Auto 1.3 10^3/uL (0.3-0.8); Monocytes Percent Auto 9.5 % (1.7-12.0); Neutrophils Absolute Auto 9.3 10^3/uL (1.4-6.5); Neutrophils Percent Auto 66.9 % (43.0-75.0); Platelet Count 329 10^3/uL (150-450); Red Blood Count 3.68 10^6/uL (4.20-5.40); Red Cell Distribution Width 13.2 % (11.0-15.0); White Blood Count 13.9 10^3/uL (4.0-11.0)
[2024-07-23 16:00] LABS: Free T4 1.01 ng/dL (0.76-1.46)
[2024-07-23 16:05] LABS: Alanine Aminotransferase 16 U/L (14-59); Albumin Globulin Ratio 0.6; Albumin Level 2.7 g/dL (3.4-5.0); Alkaline Phosphatase 133 U/L (46-116); Anion Gap 14.9; Aspartate Amino Transferase 18 U/L (15-37); BUN Creatinine Ratio 13.3; Bilirubin Total 0.5 mg/dL (0.2-1.0); Calcium 9.2 mg/dL (8.5-10.1); Carbon Dioxide 21.5 mmol/L (21.0-32.0); Chloride 108 mmol/L (98-107); Estimated GFR (African America 28 (>=60 mL/min/1.73m^2); Estimated GFR (Non-African Ame 23 (>=60 mL/min/1.73m^2); Globulin 4.4 g/dL; Glucose 144 mg/dL (74-106); Potassium 5.4 mmol/L (3.5-5.1); Sodium 139 mmol/L (136-145); Thyroid Stimulating Hormone 1.561 uIU/mL (0.358-3.740); Total Protein 7.1 g/dL (6.4-8.2)
== END 2024-07-23 15:21 | disposition home or self-care (01) ==
LOC: LAB 15:21
PROVIDERS: PCP Family Medicine; Visit Provider Family Medicine
DX: E03.9 Hypothyroidism, unspecified (principal); E11.9 Type 2 diabetes mellitus without complications; I50.30 Unspecified diastolic (congestive) heart failure; R53.83 Other fatigue; I11.0 Hypertensive heart disease with heart failure
CPT/HCPCS: 36415; 80053; 83880; 84439; 84443; 85025

== ENCOUNTER 2024-07-30 12:06 | Outpatient (OUT) | payer MEDICARE, SELFPAY ==
--- NOTE | 2024-07-30 12:17 | XR_ITS ---
The [address] [address] Patient Name: EDIN SAMANIEGO MRN: [id number] date: 1950 Sex: F Assigned Patient Location: [facility] Current Patient Location: Accession/Order Number: [id number] Exam Date: 07/30/2024 12:20 Report Date: 08/01/2024 06:54 At the request of: KRZYSZTOF THOMPSON Procedure: XR hand LT min 3V PROCEDURE: XR hand LT min 3V HISTORY: Left Wrist Pain ; pain and bruising of left metacarpals; no known injury COMPARISON: None. FINDINGS: BONES:No fracture, dislocation, bone lesion. Multifocal mild degenerative joint disease. SOFT TISSUES:No visible soft tissue swelling. EFFUSION:None visible. OTHER: Negative. XR/XR hand LT min 3V IMPRESSION: 1. No acute bone abnormality or suspicious findings to account for patient's symptoms. 2. Minimal degenerative joint disease for patient's age. Electronically authenticated by: DANIEL PINEDA Date: 08/01/2024 06:54
--- OUTSIDE RECORDS SUMMARY | 2024-07-30 12:24 | XMS_ITS | CCD ---
Author Organization [facility] Care Team Providers Care Hotel General Manager Name Role Phone PHYSICIAN, DEFAULT Admitting [...] Unavailable HOY ., DR BLANKENSHIP Admmilton Unavailable WARRENDALE, DR GODWIN Cardona Consulting Unavailable HOY ., [...] DONNA ., DR BLANKENSHIP Primary Care Unavailable ZIEBER, [...] PAY ., DR JACINTO Consulting Unavailable JUMMA, MOINGRIDAMMABecky Consulting Unavailable BOYD, VANESSA Consulting Unavailblane ELAINE, [...] Unavailable HOY ., DR BLANKENSHIP Admitting Unavailable EDWIN, DR DANIEL Erazo Consulting Unavailable LEONEL ., APRIL Consulting Unavailable LEONEL ., APRIL Admitting Unavailable LEONEL ., APRIL Attending Unavailable DONNA ., DR BLANKENSHIP Primary Care Unavailable JASONY ., DR BLANKENSHIP Admitting Unavailable HOY ., DR BLANKENSHIP Consulting Unavailable JASONY ., DR BLANKENSHIP Attending Unavailable DONNA ., DR BLANKENSHIP Primary Care Unavailable MD Ben Sanchez Attending Provider [phone] MD Krzysztof Harp Primary Care Provider [phone] Ben Sanchez Admitting Unavailable Ben Sanchez Attending Unavailable Krzysztof Harp Primary Care Unavailable Ben Sanchez Admitting Unavailable Ben Sanchez Attending Unavailable Krzysztof Harp Primary Care Unavailable Krzysztof Harp MD Primary Care Provider [phone] Raven Sesay DO Unavailable [phone] KRZYSZTOF HARP Referring Unavailable HOY, KRZYSZTOF M Primary Care Unavailable HOYMARGIEKRZYSZTOF M Referring Unavailable HOY, KRZYSZTOF M Primary Care Unavailable NAVI CARCAMO Attending Unavailable KRZYSZTOF HARP M Referring Unavailable HOY, KRZYSZTOF M Primary Care Unavailable DARSHAN HERNANDEZ Attending Unavailable MERYL, CLEVE Arguelles Attending Unavailable MERYL, CLEVE Arguelles Attending Unavailable MERYL, CLEVE Arguelles Attending Unavailable CLEVE SHETH Referring Unavailable CLEVE SHETH Referring Unavailable MERYL, CLEVE Arguelles Attending Unavailable RAVEN SESAY Attending Unavailable MERYL, CLEVE Arguelles Referring Unavailable MERYL, CLEVE Arguelles Attending Unavailable RAVEN SESAY Attending Unavailable HOY, KRZYSZTOF M Primary Care Unavailable FREEMAN WARD Attending Unavailab le DONNA KRZYSZTOF M Referring Unavailable HOY, KRZYSZTOF M Primary Care Unavailable CHRISTOPHERNIDIA Admitting Unavailable CHRISTOPHERNIDIA Attending Unavailable DONNA KRZYSZTOF M Primary Care Unavailable Allergies Allergy Classification Reported Allergen(s) Allergy Type Date of Onset Reaction(s) Facility (8 sources) Morphine; Translations: [MORPHINE] Drug Allergy 7 Vomiting [facility] Repository (5 sources) NSAIDs; Translations: [NSAIDS (NON-STEROIDAL ANTI-INFLAMMATOR Y DRUG)] Drug allergy (disorder) 03-12-201 9 [facility] (1 source) Penicillin Drug Allergy 9 [facility] (1 source) predniSONE Drug Allergy 9 [facility] (2 sources) Iodinated Contrast- Oral and IV Dye Drug allergy (disorder) 5 [facility] (19 sources) Penicillins; Translations: [PENICILLINS] Propensity to adverse reactions to drug (disorder) 5 Rash [facility] (18 sources) IODINATED CONTRAST MEDIA; Translations: [IODINATED CONTRAST MEDIA] Propensity to adverse reactions to drug (disorder) 3 Anaphylaxis [facility] (1 source) levoFLOXacin Drug Allergy 3 [facility] (1 source) meloxicam Drug Allergy 3 [facility] (4 sources) NSAIDS (Non-Steroidal Anti-Inflamma; Translations: [NSAIDS (Non-Steroidal Anti-Inflamma] Propensity to adverse reactions 4 Stomach Ulcer [facility] (1 source) Morphine Drug Allergy 4 [facility] Repository (11 sources) Morphine Drug Allergy 3 [facility] (6 sources) Non-steroidal anti-inflammator y agent Propensity to adverse reactions 4 [facility] (2 sources) Contrast media; Translations: [DYE] Propensity to adverse reactions to drug (disorder) 7 [facility] (2 sources) MORPHOLINE ANALOGUES; Translations: [MORPHOLINE ANALOGUES] Propensity to adverse reactions to drug (disorder) 7 [facility] Rep[facility] Medications Current Medications Medication Drug Class(es) [...] of multiple pubic rami, right, initial encounter ([facility]) Administer 1 spray into one nostril Daily 3.7 mL 07/15/2024 08/14/2024 Active Sod Picosulf-Mag Ox-Citric Ac (2 sources) Start: 02-19-2024 take 1 dose by mouth once daily in the evening Sod Picosulf-Mag Ox-Citric Ac (Clenpiq) 10 mg-3.5 gram- 12 gram/175 mL solution Active 175 ML PO Daily 175 1 February 184 12:00am take first dose at 3:00 pm [...] Date Documented Da te Episodic/Chronic Abdominal hernia (7 sources) Diaphragmatic hernia without obstruction or gangrene; [...] Coronary atherosclerosis; Translations: [Atherosclerotic heart disease of [place] coronary artery without angina pectoris] Onset: 02-11-2010 [...] 07-29-2013 01-09-2024 Chronic Other aftercare (2 sources) 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; 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] Onset: 11-19-2018 Episodic Other aftercare (1 source) Other exterminator termite (current) drug therapy; Translations: [OTH CORRECTION CURRENT [...] Onset: 01-17-2023 Episodic Other non-traumatic joint disorders (5 sources) Hip pain; Translations: [Pain in right hip] Onset: 06-13-2024 06-17-2024 Episodic Other non-traumatic joint disorders (1 source) Pain in left hip; Translations: [Pain in left hip] Onset: 06-13-2024 Episodic Other screening for suspected conditions (not [...] 4 C8 radiculopathy on the left, moderate [facility] NVC 5-6 Nerveson 07-17-2024 C8 radiculopathy on the left, moderate [facility] XR HIP LT 2-3 VIEWS W OR WO PELVISon 06-13-2024 XR HIP LT 2-3 VIEWS W OR WO PELVIS XR HIP LT 2-3 VIEWS W OR WO PELVIS XR HIP LT 2-3 VIEWS W OR WO PELVIS 06/13/2024 9:57 PM INDICATION: Pain, left hip pain COMPARISON: CT abdomen and pelvis were 1824 TECHNIQUE: Frontal pelvis and frontal/lateral hip view(s) obtained. FINDINGS: Osseous: No acute fracture. Joints: No malalignment or dislocation. Bilateral hip and sacroiliac joint degenerative changes. Pubic symphysis and lumbosacral spine degenerative changes. IMPRESSION: No acute bony abnormalities displayed. Approved by Resident: Christopher Burns MD on 06/13/2024 10:17 PM I, Rod Muller MD have personally reviewed the image(s) and agree with and/or edited the report Finalized by Rod Muller MD on 06/13/2024 10:24 PM Normal [facility] XR SPINE LUMBAR 2 OR 3 VWSon [...] Gonzales MD on 06/13/2024 10:20 PM Normal [facility] MR HIP RIGHT WO IV CONTRASTo n [...] by: DANIEL MARIE Date: 2023-01-15 08:25 Normal [facility] XR ANKLE LT MIN 3 [...] the first ray. Electronically authenticated by: GONZALEZ JAMESMESSI Date: 2023-01-15 07:28 Normal [facility] VITAMIN B1 (THIAMINE)on Vit. B1, Whole Blood 118.1 nmol/L Normal 66.5-200.0 [facility] Comment on above: Performed By: #### C BC #### [facility] [address] [place] [address] Dr. Ekta Funk BNPon 01-10-2023 Natriuretic peptide B (Bld) [Mass/Vol] 980.0 pg/mL Critically high <=900.0 [facility] Comment on above: Performed By: #### C VDTBH #### [facility] [address] [place] [address] Dr. Ekta Funk CBC AUTO DIFFon 01-10-2023 BASO # 0.1 103/ul Normal 0.0-0.1 [facility] Comment on above: Performed By: #### C MP #### [facility] [address] [place] [address] Dr. Ekta Funk Basophils/100 WBC (Bld) 1.0 % Normal 0.2-2.0 [facility] Comment on above: Performed By: #### C MP #### [facility] [address] [place] [address] Dr. Ekta Funk EO # 0.4 103/ul Normal 0.0-0.7 [facility] Comment on above: Performed By: #### C MP #### [facility] [address] [place] [address] Dr. Ekta Funk Eosinophils/100 WBC (Bld) 3.7 % Normal 0.9-7.0 [facility] Comment on above: Performed By: #### C MP #### [facility] [address] [place] [address] Dr. Ekta Funk Erythrocyte distribution width (RBC) [Ratio] 13.2 % Normal 11.0-15.0 [facility] Comment on above: Performed By: #### C MP #### [facility] [address] [place] [address] Dr. Ekta Funk Hematocrit (Bld) [Volume fraction] 35.1 % Critically low 36.0-48.0 [facility] Comment on above: Performed By: #### C MP #### [facility] [address] [place] [address] Dr. Ekta Funk Hemoglobin (Bld) [Mass/Vol] 11.3 g/dL Critically low 12.0-16.0 [facility] Comment on above: Performed By: #### C MP #### [facility] [address] [place] [address] Dr. Ekta Funk IG # 0.04 10e3/ul Critically high 0.00-0.03 [facility] Comment on above: Performed By: #### C MP #### [facility] [address] [place] [address] Dr. Ekta Funk IG % 0.4 % Normal 0.0-0.5 [facility] Comment on above: Performed By: #### C MP #### [facility] [address] [place] [address] Dr. Ekta Funk LYMPH # 2.0 103/ul Normal 1.2-3.8 [facility] Comment on above: Performed By: #### C MP #### [facility] [address] [place] [address] Dr. Ekta Funk Lymphocytes/100 WBC (Bld) 20.8 % Normal 20.5-60.0 [facility] Comment on above: Performed By: #### C MP #### [facility] [address] [place] [address] Dr. Ekta Funk MANUAL DIFF REQ NO Normal [facility] Comment on above: Performed By: #### C MP #### [facility] [address] [place] [address] Dr. Ekta Funk MCH (RBC) [Entitic mass] 32.3 pg Normal 26.7-34.0 [facility] Comment on above: Performed By: #### C MP #### [facility] [address] [place] [address] Dr. Ekta Funk MCHC (RBC) [Mass/Vol] 32.2 g/dL Normal 29.9-35.2 [facility] Comment on above: Performed By: #### C MP #### [facility] [address] [place] [address] Dr. Ekta Funk MCV (RBC) [Entitic vol] 100.3 fL Critically high 81.0-99.0 [facility] Comment on above: Performed By: #### C MP #### [facility] [address] [place] [address] Dr. Ekta Funk MONO # 0.8 103/ul Normal 0.3-0.8 [facility] Comment on above: Performed By: #### C MP #### [facility] [address] [place] [address] Dr. Ekta Funk Monocytes/100 WBC (Bld) 7.9 % Normal 1.7-12.0 [facility] Comment on above: Performed By: #### C MP #### [facility] [address] [place] [address] Dr. Ekta Funk NEUT # 6.4 103/ul Normal 1.4-6.5 [facility] Comment on above: Performed By: #### C MP #### [facility] [address] [place] [address] Dr. Ekta Funk Neutrophils/100 WBC (Bld) 66.2 % Normal 43.0-75.0 [facility] Comment on above: Performed By: #### C MP #### [facility] [address] [place] [address] Dr. Ekta Funk Platelet mean volume (Bld) [Entitic vol] 9.6 fL Normal 9.5-13.5 [facility] Comment on above: Performed By: #### C MP #### [facility] [address] [place] [address] Dr. Ekta Funk PLT 255 103/ul Normal 150-450 [facility] Comment on above: Performed By: #### C MP #### [facility] [address] [place] [address] Dr. Ekta Funk RBC 3.50 106/ul Critically low 4.20-5.40 [facility] Comment on above: Performed By: #### C MP #### [facility] [address] [place] [address] Dr. Ekta Funk WBC 9.7 103/ul Normal 4.0-11.0 [facility] Comment on above: Performed By: #### C MP #### [facility] [address] [place] [address] Dr. Ekta Funk CRPon 01-10-2023 CRP [Mass/Vol] mg/L Normal <=1.0 [facility] Comment on above: Performed By: #### C BC #### [facility] [address] [place] [address] Dr. Ekta Funk FREE THYROXINE INDEX T7on FTI 2.62 Normal 1.30-4.50 [facility] Comment on above: Performed By: #### C BC #### [facility] [address] [place] [address] Dr. Ekta Funk T3U 32.0 % Normal 30.0-39.0 [facility] Comment on above: Performed By: #### C BC #### [facility] [address] [place] [address] Dr. Ekta Funk T4 [Mass/Vol] 8.20 ug/dL Normal 4.80-13.90 [facility] Comment on above: Performed By: #### C BC #### [facility] [address] [place] [address] Dr. Ekta Funk IRONon 01-10-2023 Iron [Mass/Vol] 61.0 ug/dL Normal 50.0-170.0 [facility] Comment on above: Performed By: #### B 12FOL, VITAD, IRON #### [facility] [address] [place] [address] Dr. Ekta Funk PROF 14(COMP METB)on 023 Albumin [Mass/Vol] 2.9 g/dL Critically low 3.4-5.0 [facility] Comment on above: Performed By: #### C VDTBH #### [facility] [address] [place] [address] Dr. Ekta Funk Albumin/Globulin [Mass ratio] 0.6 {ratio} Normal [facility] Comment on above: Performed By: #### C VDTBH #### [facility] [address] [place] [address] Dr. Ekta Funk ALP [Catalytic activity/Vol] 101 U/L Normal 46-116 [facility] Comment on above: Performed By: #### C VDTBH #### [facility] [address] [place] [address] Dr. Ekta Funk ALT [Catalytic activity/Vol] 16 U/L Normal 14-59 [facility] Comment on above: Performed By: #### C VDTBH #### [facility] [address] [place] [address] Dr. Ekta Funk Anion gap [Moles/Vol] 14.6 mmol/L Normal [facility] Comment on above: Performed By: #### C VDTBH #### [facility] [address] [place] [address] Dr. Ekta Funk AST [Catalytic activity/Vol] 15 U/L Normal 15-37 [facility] Comment on above: Performed By: #### C VDTBH #### [facility] [address] [place] [address] Dr. Ekta Funk Bilirubin [Mass/Vol] 0.4 mg/dL Normal 0.2-1.0 [facility] Comment on above: Performed By: #### C VDTBH #### [facility] [address] [place] [address] Dr. Ekta Funk Calcium [Mass/Vol] 9.2 mg/dL Normal 8.5-10.1 [facility] Comment on above: Performed By: #### C VDTBH #### [facility] [address] [place] [address] Dr. Ekta Funk Chloride [Moles/Vol] 107 mmol/L Normal 98-107 [facility] Comment on above: Performed By: #### C VDTBH #### [facility] [address] [place] [address] Dr. Ekta Funk CO2 [Moles/Vol] 24.4 mmol/L Normal 21.0-32.0 [facility] Comment on above: Performed By: #### C VDTBH #### [facility] [address] [address] [address] Ekta Funk Creatinine [Mass/Vol] 2.02 mg/dL Critically high 0.55-1.02 [facility] Comment on above: Performed By: #### C VDTBH #### [facility] [address] [address] [address] Ekta Funk EGFR-AF BRAZILIAN 29 mL/min/1.73m2 Critically low >=60 [facility] Comment on above: Performed By: #### C VDTBH #### [facility] [address] [address] [address] Ekta Funk EGFR-NON AF BRAZILIAN 24 mL/min/1.73m2 Critically low >=60 [facility] Comment on above: Performed By: #### C VDTBH #### [facility] [address] [address] [address] Ekta Funk Globulin (S) [Mass/Vol] 4.5 g/dL Normal [facility] Comment on above: Performed By: #### C VDTBH #### [facility] [address] [address] [address] Ekta Funk Glucose [Mass/Vol] 103 mg/dL Normal 74-106 [facility] Comment on above: Performed By: #### C VDTBH #### [facility] [address] [address] [address] Ekta Funk Potassium [Moles/Vol] 5.0 mmol/L Normal 3.5-5.1 [facility] Comment on above: Performed By: #### C VDTBH #### [facility] [address] [address] [address] Ekta uFnk Protein [Mass/Vol] 7.4 g/dL Normal 6.4-8.2 [facility] Comment on above: Performed By: #### C VDTBH #### [facility] [address] [place] [address] Dr. Ekta Funk Sodium [Moles/Vol] 141 mmol/L Normal 136-145 [facility] Comment on above: Performed By: #### C VDTBH #### [facility] [address] [place] [address] Dr. Ekta Funk Urea nitrogen [Mass/Vol] 23.0 mg/dL Critically high 7.0-18.0 [facility] Comment on above: Performed By: #### C VDTBH #### [facility] [address] [place] [address] Dr. Ekta Funk Urea nitrogen/Creatinine [Mass ratio] 11.4 mg/mg Normal [facility] Comment on above: Performed By: #### C VDTBH #### [facility] [address] [place] [address] Dr. Ekta Funk TSHon 01-10-2023 TSH 1.793 uIU/mL Normal 0.358-3.740 [facility] Comment on above: Performed By: #### C VDTBH #### [facility] [address] [place] [address] Dr. Ekta Funk VIT B12 AND FOLATEon 023 Cobalamin (Vitamin B12) [Mass/Vol] 175.0 pg/mL Critically low 193.0-986.0 [facility] Comment on above: Performed By: #### B 12FOL, VITAD, IRON #### [facility] [address] [place] [address] Dr. Ekta Funk FOLATE 10.30 ng/mL Normal 8.60-58.90 [facility] Comment on above: Performed By: #### B 12FOL, VITAD, IRON #### [facility] [address] [place] [address] Dr. Ekta Funk VITAMIN D 25 OHon 01-10-2023 VIT D 25-OH 24.0 ng/mL Normal [facility] Comment on above: Performed By: #### B 12FOL, VITAD, IRON #### [facility] [address] [place] [address] Dr. Ekta Funk VIT D RANGES SEE BELOW Normal [facility] Comment on above: Result Comment: <20 ng/mL Vit D deficient 20 - <30 ng/mL Vit D insufficient 30 - 100 ng/mL Vit D sufficient >100 ng/mL Potential Toxicity Performed By: #### B 12FOL, VITAD, IRON #### [facility] [address] [address] [address] Ekta Funk Office Visiton 12-15-2022 Follow-up visit [id number] Sheila Mac 1950 F Date Provider Department Center 12/15/2022 [id number] MOHAN [facility] No family history on file Level of Service:29513 [place] OFFICE/OUTPATIENT ESTABLISHED MOD MDM 30-39 MIN Reason for Visit and Comments: Follow-up [607946] - Is here f/u stress test pt states she had Bruises all over both legs symptoms stated a week ago also stated legs are swollen and burning Normal [facility] NM STRESS/REST MULTIon 12-05 NM STRESS/REST MULTI Patient: SHEILA MAC Exam Date: 12/05/2022 : 1950 Gender:F Ordering : DR KRZYSZTOF HARP . Admission #: [id number] Family : Order #: [id number] CLICK HERE TO VIEW EXAM RADIOLOGY REPORT [...] Marie M.D. on 12/06/2022 at 07:26 Normal [facility] ECHOCARDIO M/2D COMPLETEon 0 11-27-2022 ECHOCARDIO M/2D COMPLETE Patient: SHEILA MAC Exam Date: 11/27/2022 : 1950 Gender:F Ordering : DR KRZYSZTOF HARP . Admission #: [id number] Family : Order #: [id number] CLICK HERE TO VIEW EXAM ECHOCARDIOGRAM REPORT [...] M.D. on 11/27/2022 at 14:39 Normal [facility] CBC AUTO DIFFon 11-26-2022 BASO # 0.0 103/ul Normal 0.0-0.1 [facility] Comment on above: Performed By: #### I NSULIN #### [facility] [address] [place] [address] Dr. Ekta Funk Basophils/100 WBC (Bld) 0.6 % Normal 0.2-2.0 [facility] Comment on above: Performed By: #### I NSULIN #### [facility] [address] [place] [address] Dr. Ekta Funk EO # 0.3 103/ul Normal 0.0-0.7 [facility] Comment on above: Performed By: #### I NSULIN #### [facility] [address] [place] [address] Dr. Ekta Funk Eosinophils/100 WBC (Bld) 4.8 % Normal 0.9-7.0 [facility] Comment on above: Performed By: #### I NSULIN #### [facility] [address] [place] [address] Dr. Ekta Funk Erythrocyte distribution width (RBC) [Ratio] 13.3 % Normal 11.0-15.0 [facility] Comment on above: Performed By: #### I NSULIN #### [facility] [address] [place] [address] Dr. Ekta Funk Hematocrit (Bld) [Volume fraction] 29.1 % Critically low 36.0-48.0 [facility] Comment on above: Performed By: #### I NSULIN #### [facility] [address] [place] [address] Dr. Ekta Funk Hemoglobin (Bld) [Mass/Vol] 9.5 g/dL Critically low 12.0-16.0 [facility] Comment on above: Performed By: #### I NSULIN #### [facility] [address] [place] [address] Dr. Ekta Funk IG # 0.07 10e3/ul Critically high 0.00-0.03 [facility] Comment on above: Performed By: #### I NSULIN #### [facility] [address] [place] [address] Dr. Ekta Funk IG % 1.0 % Critically high 0.0-0.5 [facility] Comment on above: Performed By: #### I NSULIN #### [facility] [address] [place] [address] Dr. Ekta Funk LYMPH # 1.2 103/ul Normal 1.2-3.8 [facility] Comment on above: Performed By: #### I NSULIN #### [facility] [address] [place] [address] Dr. Ekta Funk Lymphocytes/100 WBC (Bld) 17.2 % Critically low 20.5-60.0 [facility] Comment on above: Performed By: #### I NSULIN #### [facility] [address] [place] [address] Dr. Ekta Funk MANUAL DIFF REQ NO Normal [facility] Comment on above: Performed By: #### I NSULIN #### [facility] [address] [place] [address] Dr. Ekta Funk MCH (RBC) [Entitic mass] 31.7 pg Normal 26.7-34.0 [facility] Comment on above: Performed By: #### I NSULIN #### [facility] [address] [place] [address] Dr. Ekta Funk MCHC (RBC) [Mass/Vol] 32.6 g/dL Normal 29.9-35.2 [facility] Comment on above: Performed By: #### I NSULIN #### [facility] [address] [place] [address] Dr. Ekta Funk MCV (RBC) [Entitic vol] 97.0 fL Normal 81.0-99.0 [facility] Comment on above: Performed By: #### I NSULIN #### [facility] [address] [place] [address] Dr. Ekta Funk MONO # 0.8 103/ul Normal 0.3-0.8 [facility] Comment on above: Performed By: #### I NSULIN #### [facility] [address] [place] [address] Dr. Ekta Funk Monocytes/100 WBC (Bld) 11.1 % Normal 1.7-12.0 [facility] Comment on above: Performed By: #### I NSULIN #### [facility] [address] [place] [address] Dr. Ekta Funk NEUT # 4.5 103/ul Normal 1.4-6.5 [facility] Comment on above: Performed By: #### I NSULIN #### [facility] [address] [place] [address] Dr. Ekta Funk Neutrophils/100 WBC (Bld) 65.3 % Normal 43.0-75.0 [facility] Comment on above: Performed By: #### I NSULIN #### [facility] [address] [place] [address] Dr. Ekta Funk Platelet mean volume (Bld) [Entitic vol] 9.4 fL Critically low 9.5-13.5 [facility] Comment on above: Performed By: #### I NSULIN #### [facility] [address] [place] [address] Dr. Ekta Funk PLT 263 103/ul Normal 150-450 [facility] Comment on above: Performed By: #### I NSULIN #### [facility] [address] [place] [address] Dr. Ekta Funk RBC 3.00 106/ul Critically low 4.20-5.40 [facility] Comment on above: Performed By: #### I NSULIN #### [facility] [address] [place] [address] Dr. Ekta Funk WBC 6.9 103/ul Normal 4.0-11.0 [facility] Comment on above: Performed By: #### I NSULIN #### [facility] [address] [place] [address] Dr. Ekta Funk PROF 14(COMP METB)on 023 Albumin [Mass/Vol] 2.2 g/dL Critically low 3.4-5.0 [facility] Comment on above: Performed By: #### C MP #### [facility] [address] [place] [address] Dr. Ekta Funk Albumin/Globulin [Mass ratio] 0.6 {ratio} Normal [facility] Comment on above: Performed By: #### C MP #### [facility] [address] [place] [address] Dr. Ekta Funk ALP [Catalytic activity/Vol] 82 U/L Normal 46-116 [facility] Comment on above: Performed By: #### C MP #### [facility] [address] [place] [address] Dr. Ekta Funk ALT [Catalytic activity/Vol] 13 U/L Critically low 14-59 [facility] Comment on above: Performed By: #### C MP #### [facility] [address] [place] [address] Dr. Ekta Funk Anion gap [Moles/Vol] 14.0 mmol/L Normal [facility] Comment on above: Performed By: #### C MP #### [facility] [address] [place] [address] Dr. Ekta Funk AST [Catalytic activity/Vol] 18 U/L Normal 15-37 [facility] Comment on above: Performed By: #### C MP #### [facility] [address] [place] [address] Dr. Ekta Funk Bilirubin [Mass/Vol] 0.4 mg/dL Normal 0.2-1.0 [facility] Comment on above: Performed By: #### C MP #### [facility] [address] [place] [address] Dr. Ekta Funk Calcium [Mass/Vol] 8.6 mg/dL Normal 8.5-10.1 [facility] Comment on above: Performed By: #### C MP #### [facility] [address] [place] [address] Dr. Ekta Funk Chloride [Moles/Vol] 108 mmol/L Critically high 98-107 [facility] Comment on above: Performed By: #### C MP #### [facility] [address] [place] [address] Dr. Ekta Funk CO2 [Moles/Vol] 19.6 mmol/L Critically low 21.0-32.0 [facility] Comment on above: Performed By: #### C MP #### [facility] [address] [address] [address] Ekta Funk Creatinine [Mass/Vol] 1.70 mg/dL Critically high 0.55-1.02 [facility] Comment on above: Performed By: #### C MP #### [facility] [address] [place] [address] Dr. Ekta Funk EGFR-AF BRAZILIAN 36 mL/min/1.73m2 Critically low >=60 [facility] Comment on above: Performed By: #### C MP #### [facility] [address] [place] [address] Dr. Ekta Funk EGFR-NON AF BRAZILIAN 29 mL/min/1.73m2 Critically low >=60 [facility] Comment on above: Performed By: #### C MP #### [facility] [address] [place] [address] Dr. Ekta Funk Globulin (S) [Mass/Vol] 3.6 g/dL Normal [facility] Comment on above: Performed By: #### C MP #### [facility] [address] [address] [address] Ekta Funk Glucose [Mass/Vol] 103 mg/dL Normal 74-106 [facility] Comment on above: Performed By: #### C MP #### [facility] [address] [address] [address] Ekta Funk Potassium [Moles/Vol] 4.6 mmol/L Normal 3.5-5.1 [facility] Comment on above: Performed By: #### C MP #### [facility] [address] [place] [address] Dr. Ekta Funk Protein [Mass/Vol] 5.8 g/dL Critically low 6.4-8.2 [facility] Comment on above: Performed By: #### C MP #### [facility] [address] [place] [address] Dr. Ekta Funk Sodium [Moles/Vol] 137 mmol/L Normal 136-145 [facility] Comment on above: Performed By: #### C MP #### [facility] [address] [place] [address] Dr. Ekta Funk Urea nitrogen [Mass/Vol] 26.0 mg/dL Critically high 7.0-18.0 [facility] Comment on above: Performed By: #### C MP #### [facility] [address] [place] [address] Dr. Ekta Funk Urea nitrogen/Creatinine [Mass ratio] 15.3 mg/mg Normal [facility] Comment on above: Performed By: #### C MP #### [facility] [address] [place] [address] Dr. Ekta Funk CBC AUTO DIFFon 11-25-2022 BASO # 0.1 103/ul Normal 0.0-0.1 [facility] Comment on above: Performed By: #### C BC #### [facility] [address] [place] [address] Dr. Ekta Funk Basophils/100 WBC (Bld) 0.7 % Normal 0.2-2.0 [facility] Comment on above: Performed By: #### C BC #### [facility] [address] [place] [address] Dr. Ekta Funk EO # 0.3 103/ul Normal 0.0-0.7 [facility] Comment on above: Performed By: #### C BC #### [facility] [address] [place] [address] Dr. Ekta Funk Eosinophils/100 WBC (Bld) 3.4 % Normal 0.9-7.0 [facility] Comment on above: Performed By: #### C BC #### [facility] [address] [place] [address] Dr. Ekta Funk Erythrocyte distribution width (RBC) [Ratio] 13.6 % Normal 11.0-15.0 [facility] Comment on above: Performed By: #### C BC #### [facility] [address] [place] [address] Dr. Ekta Funk Hematocrit (Bld) [Volume fraction] 32.1 % Critically low 36.0-48.0 [facility] Comment on above: Performed By: #### C BC #### [facility] [address] [place] [address] Dr. Ekta Funk Hemoglobin (Bld) [Mass/Vol] 10.3 g/dL Critically low 12.0-16.0 [facility] Comment on above: Performed By: #### C BC #### [facility] [address] [place] [address] Dr. Ekta Funk IG # 0.08 10e3/ul Critically high 0.00-0.03 [facility] Comment on above: Performed By: #### C BC #### [facility] [address] [place] [address] Dr. Ekta Funk IG % 0.9 % Critically high 0.0-0.5 [facility] Comment on above: Performed By: #### C BC #### [facility] [address] [place] [address] Dr. Ekta Funk LYMPH # 0.9 103/ul Critically low 1.2-3.8 [facility] Comment on above: Performed By: #### C BC #### [facility] [address] [place] [address] Dr. Ekta Funk Lymphocytes/100 WBC (Bld) 10.7 % Critically low 20.5-60.0 [facility] Comment on above: Performed By: #### C BC #### [facility] [address] [place] [address] Dr. Ekta Funk MANUAL DIFF REQ NO Normal [facility] Comment on above: Performed By: #### C BC #### [facility] [address] [place] [address] Dr. Ekta Funk MCH (RBC) [Entitic mass] 32.2 pg Normal 26.7-34.0 [facility] Comment on above: Performed By: #### C BC #### [facility] [address] [address] [address] Ekta Funk MCHC (RBC) [Mass/Vol] 32.1 g/dL Normal 29.9-35.2 [facility] Comment on above: Performed By: #### C BC #### [facility] [address] [address] [address] Ekta Funk MCV (RBC) [Entitic vol] 100.3 fL Critically high 81.0-99.0 [facility] Comment on above: Performed By: #### C BC #### [facility] [address] [place] [address] Dr. Ekta Funk MONO # 0.9 103/ul Critically high 0.3-0.8 [facility] Comment on above: Performed By: #### C BC #### [facility] [address] [place] [address] Dr. Ekta Funk Monocytes/100 WBC (Bld) 9.9 % Normal 1.7-12.0 [facility] Comment on above: Performed By: #### C BC #### [facility] [address] [place] [address] Dr. Ekta Funk NEUT # 6.4 103/ul Normal 1.4-6.5 [facility] Comment on above: Performed By: #### C BC #### [facility] [address] [place] [address] Dr. Ekta Funk Neutrophils/100 WBC (Bld) 74.4 % Normal 43.0-75.0 [facility] Comment on above: Performed By: #### C BC #### [facility] [address] [place] [address] Dr. Ekta Funk Platelet mean volume (Bld) [Entitic vol] 9.5 fL Normal 9.5-13.5 [facility] Comment on above: Performed By: #### C BC #### [facility] [address] [place] [address] Dr. Ekta Funk PLT 267 103/ul Normal 150-450 [facility] Comment on above: Performed By: #### C BC #### [facility] [address] [address] [address] Ekta Funk RBC 3.20 106/ul Critically low 4.20-5.40 [facility] Comment on above: Performed By: #### C BC #### [facility] [address] [address] [address] Ekta Funk WBC 8.6 103/ul Normal 4.0-11.0 [facility] Comment on above: Performed By: #### C BC #### [facility] [address] [address] [address] Ekta Funk BASO # 0.1 103/ul Normal 0.0-0.1 [facility] Comment on above: Performed By: #### C MP #### [facility] [address] [place] [address] Dr. Ekta Funk Basophils/100 WBC (Bld) 0.7 % Normal 0.2-2.0 [facility] Comment on above: Performed By: #### C MP #### [facility] [address] [place] [address] Dr. Ekta Funk EO # 0.3 103/ul Normal 0.0-0.7 [facility] Comment on above: Performed By: #### C MP #### [facility] [address] [place] [address] Dr. Ekta Funk Eosinophils/100 WBC (Bld) 3.9 % Normal 0.9-7.0 [facility] Comment on above: Performed By: #### C MP #### [facility] [address] [place] [address] Dr. Ekta Funk Erythrocyte distribution width (RBC) [Ratio] 13.2 % Normal 11.0-15.0 [facility] Comment on above: Performed By: #### C MP #### [facility] [address] [place] [address] Dr. Ekta Funk Hematocrit (Bld) [Volume fraction] 28.0 % Critically low 36.0-48.0 [facility] Comment on above: Performed By: #### C MP #### [facility] [address] [address] [address] Ekta Funk Hemoglobin (Bld) [Mass/Vol] 9.3 g/dL Critically low 12.0-16.0 [facility] Comment on above: Performed By: #### C MP #### [facility] [address] [address] [address] Ekta Funk IG # 0.08 10e3/ul Critically high 0.00-0.03 [facility] Comment on above: Performed By: #### C MP #### [facility] [address] [address] [address] Ekta Funk IG % 1.1 % Critically high 0.0-0.5 [facility] Comment on above: Performed By: #### C MP #### [facility] [address] [place] [address] Dr. Ekta Funk LYMPH # 0.9 103/ul Critically low 1.2-3.8 [facility] Comment on above: Performed By: #### C MP #### [facility] [address] [address] [address] Ekta Funk Lymphocytes/100 WBC (Bld) 12.1 % Critically low 20.5-60.0 [facility] Comment on above: Performed By: #### C MP #### [facility] [address] [place] [address] Dr. Ekta Funk MANUAL DIFF REQ NO Normal [facility] Comment on above: Performed By: #### C MP #### [facility] [address] [address] [address] Ekta Funk MCH (RBC) [Entitic mass] 32.0 pg Normal 26.7-34.0 [facility] Comment on above: Performed By: #### C MP #### [facility] [address] [address] [address] Ekta Funk MCHC (RBC) [Mass/Vol] 33.2 g/dL Normal 29.9-35.2 [facility] Comment on above: Performed By: #### C MP #### [facility] [address] [address] [address] Ekta Funk MCV (RBC) [Entitic vol] 96.2 fL Normal 81.0-99.0 [facility] Comment on above: Performed By: #### C MP #### [facility] [address] [address] [address] Ekta Funk MONO # 0.7 103/ul Normal 0.3-0.8 [facility] Comment on above: Performed By: #### C MP #### [facility] [address] [address] [address] Ekta Funk Monocytes/100 WBC (Bld) 9.8 % Normal 1.7-12.0 [facility] Comment on above: Performed By: #### C MP #### [facility] [address] [address] [address] Ekta Funk NEUT # 5.2 103/ul Normal 1.4-6.5 [facility] Comment on above: Performed By: #### C MP #### [facility] [address] [address] [address] Ekta Funk Neutrophils/100 WBC (Bld) 72.4 % Normal 43.0-75.0 [facility] Comment on above: Performed By: #### C MP #### [facility] [address] [address] [address] Ekta Funk Platelet mean volume (Bld) [Entitic vol] 9.4 fL Critically low 9.5-13.5 [facility] Comment on above: Performed By: #### C MP #### [facility] [address] [address] [address] Ekta Funk PLT 250 103/ul Normal 150-450 [facility] Comment on above: Performed By: #### C MP #### [facility] [address] [address] [address] Ekta Funk RBC 2.91 106/ul Critically low 4.20-5.40 [facility] Comment on above: Performed By: #### C MP #### [facility] [address] [place] [address] Dr. Ekta Funk WBC 7.2 103/ul Normal 4.0-11.0 [facility] Comment on above: Performed By: #### C MP #### [facility] [address] [place] [address] Dr. Ekta Funk PROF 14(COMP METB)on 023 Albumin [Mass/Vol] 2.1 g/dL Critically low 3.4-5.0 [facility] Comment on above: Performed By: #### C MP #### [facility] [address] [place] [address] Dr. Ekta Funk Albumin/Globulin [Mass ratio] 0.6 {ratio} Normal [facility] Comment on above: Performed By: #### C MP #### [facility] [address] [place] [address] Dr. Ekta Funk ALP [Catalytic activity/Vol] 68 U/L Normal 46-116 [facility] Comment on above: Performed By: #### C MP #### [facility] [address] [place] [address] Dr. Ekta Funk ALT [Catalytic activity/Vol] 14 U/L Normal 14-59 [facility] Comment on above: Performed By: #### C MP #### [facility] [address] [place] [address] Dr. Ekta Funk Anion gap [Moles/Vol] 12.9 mmol/L Normal [facility] Comment on above: Performed By: #### C MP #### [facility] [address] [place] [address] Dr. Ekta Funk AST [Catalytic activity/Vol] 14 U/L Critically low 15-37 [facility] Comment on above: Performed By: #### C MP #### [facility] [address] [place] [address] Dr. Ekta Funk Bilirubin [Mass/Vol] 0.3 mg/dL Normal 0.2-1.0 [facility] Comment on above: Performed By: #### C MP #### [facility] [address] [place] [address] Dr. Ekta Funk Calcium [Mass/Vol] 8.3 mg/dL Critically low 8.5-10.1 [facility] Comment on above: Performed By: #### C MP #### [facility] [address] [place] [address] Dr. Ekta Funk Chloride [Moles/Vol] 109 mmol/L Critically high 98-107 [facility] Comment on above: Performed By: #### C MP #### [facility] [address] [address] [address] Ekta Funk CO2 [Moles/Vol] 19.3 mmol/L Critically low 21.0-32.0 [facility] Comment on above: Performed By: #### C MP #### [facility] [address] [place] [address] Dr. Ekta Funk Creatinine [Mass/Vol] 1.54 mg/dL Critically high 0.55-1.02 [facility] Comment on above: Performed By: #### C MP #### [facility] [address] [place] [address] Dr. Ekta Funk EGFR-AF BRAZILIAN 40 mL/min/1.73m2 Critically low >=60 [facility] Comment on above: Performed By: #### C MP #### [facility] [address] [place] [address] Dr. Ekta Funk EGFR-NON AF BRAZILIAN 33 mL/min/1.73m2 Critically low >=60 [facility] Comment on above: Performed By: #### C MP #### [facility] [address] [place] [address] Dr. Ekta Funk Globulin (S) [Mass/Vol] 3.7 g/dL Normal [facility] Comment on above: Performed By: #### C MP #### [facility] [address] [place] [address] Dr. Ekta Funk Glucose [Mass/Vol] 117 mg/dL Critically high 74-106 T [facility] Comment on above: Performed By: #### C MP #### [facility] [address] [place] [address] Dr. Ekta Funk Potassium [Moles/Vol] 4.2 mmol/L Normal 3.5-5.1 [facility] Comment on above: Performed By: #### C MP #### [facility] [address] [address] [address] Ekta Funk Protein [Mass/Vol] 5.8 g/dL Critically low 6.4-8.2 [facility] Comment on above: Performed By: #### C MP #### [facility] [address] [address] [address] Ekta Funk Sodium [Moles/Vol] 137 mmol/L Normal 136-145 [facility] Comment on above: Performed By: #### C MP #### [facility] [address] [place] [address] Dr. Ekta Funk Urea nitrogen [Mass/Vol] 27.0 mg/dL Critically high 7.0-18.0 [facility] Comment on above: Performed By: #### C MP #### [facility] [address] [address] [address] Ekta Funk Urea nitrogen/Creatinine [Mass ratio] 17.5 mg/mg Normal [facility] Comment on above: Performed By: #### C MP #### [facility] [address] [place] [address] Dr. Ekta Funk AMMONIAon 11-24-2022 Ammonia (P) [Moles/Vol] 13 umol/L Normal 11-32 [facility] Comment on above: Performed By: #### C VDTB #### [facility] [address] [place] [address] Dr. Ekta Funk CBC AUTO DIFFon 11-24-2022 BASO # 0.0 103/ul Normal 0.0-0.1 [facility] Comment on above: Performed By: #### C MP #### [facility] [address] [place] [address] Dr. Ekta Funk Basophils/100 WBC (Bld) 0.4 % Normal 0.2-2.0 [facility] Comment on above: Performed By: #### C MP #### [facility] [address] [address] [address] Ekta Funk EO # 0.4 103/ul Normal 0.0-0.7 [facility] Comment on above: Performed By: #### C MP #### [facility] [address] [address] [address] Ekta Funk Eosinophils/100 WBC (Bld) 3.8 % Normal 0.9-7.0 [facility] Comment on above: Performed By: #### C MP #### [facility] [address] [place] [address] Dr. Ekta Funk Erythrocyte distribution width (RBC) [Ratio] 13.2 % Normal 11.0-15.0 [facility] Comment on above: Performed By: #### C MP #### [facility] [address] [place] [address] Dr. Ekta Funk Hematocrit (Bld) [Volume fraction] 34.0 % Critically low 36.0-48.0 [facility] Comment on above: Performed By: #### C MP #### [facility] [address] [place] [address] Dr. Ekta Funk Hemoglobin (Bld) [Mass/Vol] 11.5 g/dL Critically low 12.0-16.0 [facility] Comment on above: Performed By: #### C MP #### [facility] [address] [place] [address] Dr. Ekta Funk IG # 0.11 10e3/ul Critically high 0.00-0.03 [facility] Comment on above: Performed By: #### C MP #### [facility] [address] [place] [address] Dr. Ekta Funk IG % 1.2 % Critically high 0.0-0.5 [facility] Comment on above: Performed By: #### C MP #### [facility] [address] [place] [address] Dr. Ekta Funk LYMPH # 1.4 103/ul Normal 1.2-3.8 [facility] Comment on above: Performed By: #### C MP #### [facility] [address] [place] [address] Dr. Ekta Funk Lymphocytes/100 WBC (Bld) 14.9 % Critically low 20.5-60.0 [facility] Comment on above: Performed By: #### C MP #### [facility] [address] [place] [address] Dr. Ekta Funk MANUAL DIFF REQ NO Normal [facility] Comment on above: Performed By: #### C MP #### [facility] [address] [place] [address] Dr. Ekta Funk MCH (RBC) [Entitic mass] 32.5 pg Normal 26.7-34.0 [facility] Comment on above: Performed By: #### C MP #### [facility] [address] [place] [address] Dr. Ekta Funk MCHC (RBC) [Mass/Vol] 33.8 g/dL Normal 29.9-35.2 [facility] Comment on above: Performed By: #### C MP #### [facility] [address] [place] [address] Dr. Ekta Funk MCV (RBC) [Entitic vol] 96.0 fL Normal 81.0-99.0 [facility] Comment on above: Performed By: #### C MP #### [facility] [address] [place] [address] Dr. Ekta Funk MONO # 0.9 103/ul Critically high 0.3-0.8 [facility] Comment on above: Performed By: #### C MP #### [facility] [address] [place] [address] Dr. Ekta Funk Monocytes/100 WBC (Bld) 9.7 % Normal 1.7-12.0 [facility] Comment on above: Performed By: #### C MP #### [facility] [address] [place] [address] Dr. Ekta Funk NEUT # 6.4 103/ul Normal 1.4-6.5 [facility] Comment on above: Performed By: #### C MP #### [facility] [address] [place] [address] Dr. Ekta Funk Neutrophils/100 WBC (Bld) 70.0 % Normal 43.0-75.0 [facility] Comment on above: Performed By: #### C MP #### [facility] [address] [address] [address] Ekta Funk Platelet mean volume (Bld) [Entitic vol] 9.3 fL Critically low 9.5-13.5 [facility] Comment on above: Performed By: #### C MP #### [facility] [address] [place] [address] Dr. Ekta Funk PLT 308 103/ul Normal 150-450 [facility] Comment on above: Performed By: #### C MP #### [facility] [address] [place] [address] Dr. Ekta Funk RBC 3.54 106/ul Critically low 4.20-5.40 [facility] Comment on above: Performed By: #### C MP #### [facility] [address] [place] [address] Dr. Ekta Funk WBC 9.1 103/ul Normal 4.0-11.0 [facility] Comment on above: Performed By: #### C MP #### [facility] [address] [place] [address] Dr. Ekta Funk CPKon 11-24-2022 CK [Catalytic activity/Vol] 21 U/L Critically low 26-192 [facility] Comment on above: Performed By: #### B 12FOL, VITAD, IRON #### [facility] [address] [place] [address] STROKE HEAD WOon [...] by: VANESSA PARADA Date: 2022-11-24 11:09 Normal [facility] CTA HEAD WO W CONon [...] DANIEL MARIE Date: 2022-11-24 12:41 Normal [facility] CULTURE URINEon 11-24-2022 CULTURE URINE Culture Observations : NO GROWTH. Normal [facility] Comment on above: Performed By: #### I NSULIN #### [facility] [address] [place] [address] Dr. Ekta Funk Covid-19 PCR (CVDTB)on 11-08 SARS-CoV-2 (COVID-19) RNA GANESH+probe Ql (Unsp spec) Not detected Normal NOT DETECTED [facility] Comment on above: Result Comment: When [...] for this test is supported by the [place] of Health and Human Service's declaration that [...] used). Performed By: #### C VDTBH #### [facility] [address] [place] [address] Dr. Ekta LEHMAN URINE PROFILEon 3 Bilirubin Ql (U) Negative Normal NEGATIVE [facility] Comment on above: Performed By: #### C BC #### [facility] [address] [place] [address] Dr. Ekta Funk Clarity (U) CLEAR Normal CLEAR [facility] Comment on above: Performed By: #### C BC #### [facility] [address] [place] [address] Dr. Ekta Funk Color (U) LT. YELLOW Normal YELLOW [facility] Comment on above: Performed By: #### C BC #### [facility] [address] [place] [address] Dr. Ekta COLÓN A micrscopic examination will be performed if indicated. Normal [facility] Comment on above: Performed By: #### C BC #### [facility] [address] [place] [address] Dr. Ekta Funk Glucose Ql (U) Negative Normal NEGATIVE [facility] Comment on above: Performed By: #### C BC #### [facility] [address] [place] [address] Dr. Ekta Funk Hemoglobin Ql (U) Negative Normal NEGATIVE [facility] Comment on above: Performed By: #### C BC #### [facility] [address] [place] [address] Dr. Ekta Funk Ketones Ql (U) Negative Normal NEGATIVE [facility] Comment on above: Performed By: #### C BC #### [facility] [address] [place] [address] Dr. Ekta Funk LEUKOCYTES Negative Normal NEGATIVE [facility] Comment on above: Performed By: #### C BC #### [facility] [address] [place] [address] Dr. Ekta Funk Nitrite Ql (U) Negative Normal NEGATIVE [facility] Comment on above: Performed By: #### C BC #### [facility] [address] [place] [address] Dr. Ekta Funk pH (U) 5.5 [pH] Normal 5-9 [facility] Comment on above: Performed By: #### C BC #### [facility] [address] [address] [address] Ekta Funk SPEC GRAVITY 1.020 Normal 1.005-<=1.025 [facility] Comment on above: Performed By: #### C BC #### [facility] [address] [address] [address] Ekta Funk UA PROTEIN Negative Normal NEGATIVE/ TRACE [facility] Comment on above: Performed By: #### C BC #### [facility] [address] [address] [address] Ekta Funk UR MICRO IND NOT INDICATED Normal [facility] Comment on above: Performed By: #### C BC #### [facility] [address] [place] [address] Dr. Ekta Funk Urobilinogen Qn (U) 0.2 {Ivan'U}/dL Normal 0.2 - 1. 0 [facility] Comment on above: Performed By: #### C BC #### [facility] [address] [place] [address] Dr. Ekta Funk GLYCOHEMOGLOBIN A1Con 2022 ADA RECOMMENDATION SEE BELOW Normal [facility] Comment on above: Result Comment: ADA RECOMMENDED LIMIT 4.0 - 6.0 ADA THERAPEUTIC TARGET < 7.0 ACTION SUGGESTED > 7.0 Performed By: #### B 12FOL, VITAD, IRON #### [facility] [address] [place] [address] Dr. Ekta Funk Glucose [Mass/Vol] 143 mg/dL Normal [facility] Comment on above: Performed By: #### B 12FOL, VITAD, IRON #### [facility] [address] [place] [address] Dr. Ekta Funk HbA1c (Bld) [Mass fraction] 6.6 % Critically high 4.5-6.2 [facility] Comment on above: Performed By: #### B 12FOL, VITAD, IRON #### [facility] [address] [address] [address] Ekta Funk LACTATE/LACTIC ACIDon 2022 Lactate [Moles/Vol] 1.6 mmol/L Normal 0.4-2.0 [facility] Comment on above: Performed By: #### C MP #### [facility] [address] [address] [address] Ekta Funk Lactate [Moles/Vol] 2.1 mmol/L Critically high 0.4-2.0 [facility] Comment on above: Performed By: #### B 12FOL, VITAD, IRON #### [facility] [address] [address] [address] Ekta Funk LIPASEon 11-24-2022 Lipase [Catalytic activity/Vol] 165.0 U/L Normal 73.0-393.0 [facility] Comment on above: Performed By: #### B 12FOL, VITAD, IRON #### [facility] [address] [address] [address] Ekta Funk LIPID PROFILEon 11-24-2022 CHOL-HDL RATIO NORM SEE BELOW Normal [facility] Comment on above: Result Comment: 3.3 - 4.4 LOW RISK 4.4 - 7.1 AVERAGE RISK 7.1 - 11.0 MODERATE RISK >11.0 HIGH RISK Performed By: #### B 12FOL, VITAD, IRON #### [facility] [address] [address] [address] Ekta Funk Cholesterol [Mass/Vol] 248 mg/dL Critically high <=200 [facility] Comment on above: Performed By: #### B 12FOL, VITAD, IRON #### [facility] [address] [address] [address] Ekta Funk Cholesterol in HDL [Mass/Vol] 58 mg/dL Normal 40-60 [facility] Comment on above: Performed By: #### B 12FOL, VITAD, IRON #### [facility] [address] [address] [address] Ekta Funk Cholesterol in LDL [Mass/Vol] 165.6 mg/dL Normal [facility] Comment on above: Performed By: #### B 12FOL, VITAD, IRON #### [facility] [address] [address] [address] Ekta Funk Cholesterol.total/Ch olesterol in HDL [Mass ratio] 4.3 {ratio} Normal [facility] Comment on above: Performed By: #### B 12FOL, VITAD, IRON #### [facility] [address] [address] [address] Ekta Funk HDL NORMAL > or = 60 mg/dl - LO W CARDIOVASCULAR RISK <40 mg/dl - HIGH CARDIOVASCULAR RISK Normal [facility] Comment on above: Performed By: #### B 12FOL, VITAD, IRON #### [facility] [address] [address] [address] Ekta Funk LDL CALC NORMAL SEE BELOW Normal [facility] Comment on above: Result Comment: <100 mg/dl OPTIMAL 100 - 129 mg/dl NEAR OR ABOVE OPTIMAL 130 - 159 mg/dl BORDERLINE HIGH 160 - 189 mg/dl HIGH >190 mg/dl VERY HIGH Performed By: #### B 12FOL, VITAD, IRON #### [facility] [address] [address] [address] Ekta Funk Triglyceride [Mass/Vol] 122 mg/dL Normal <=150 [facility] Comment on above: Performed By: #### B 12FOL, VITAD, IRON #### [facility] [address] [address] [address] Ekta Funk VLDL CALC 24.4 mg/dL Normal [facility] Comment on above: Performed By: #### B 12FOL, VITAD, IRON #### [facility] [address] [address] [address] Ekta Funk MRI BRAIN WO CONon [...] RAVEN ELAINE Date: 2022-11-24 19:35 Normal [facility] PROF 14(COMP METB)on 023 Albumin [Mass/Vol] 2.7 g/dL Critically low 3.4-5.0 [facility] Comment on above: Performed By: #### B 12FOL, VITAD, IRON #### [facility] [address] [address] [address] Ekta Funk Albumin/Globulin [Mass ratio] 0.6 {ratio} Normal [facility] Comment on above: Performed By: #### B 12FOL, VITAD, IRON #### [facility] [address] [address] [address] Ekta Funk ALP [Catalytic activity/Vol] 85 U/L Normal 46-116 [facility] Comment on above: Performed By: #### B 12FOL, VITAD, IRON #### [facility] [address] [address] [address] Ekta Funk ALT [Catalytic activity/Vol] 18 U/L Normal 14-59 [facility] Comment on above: Performed By: #### B 12FOL, VITAD, IRON #### [facility] [address] [address] [address] Ekta Funk Anion gap [Moles/Vol] 18.9 mmol/L Normal [facility] Comment on above: Performed By: #### B 12FOL, VITAD, IRON #### [facility] [address] [place] [address] Dr. Ekta Funk AST [Catalytic activity/Vol] 16 U/L Normal 15-37 [facility] Comment on above: Performed By: #### B 12FOL, VITAD, IRON #### [facility] [address] [place] [address] Dr. Ekta Funk Bilirubin [Mass/Vol] 0.4 mg/dL Normal 0.2-1.0 [facility] Comment on above: Performed By: #### B 12FOL, VITAD, IRON #### [facility] [address] [place] [address] Dr. Ekta Funk Calcium [Mass/Vol] 9.5 mg/dL Normal 8.5-10.1 [facility] Comment on above: Performed By: #### B 12FOL, VITAD, IRON #### [facility] [address] [place] [address] Dr. Ekta Funk Chloride [Moles/Vol] 108 mmol/L Critically high 98-107 [facility] Comment on above: Performed By: #### B 12FOL, VITAD, IRON #### [facility] [address] [place] [address] Dr. Ekta Funk CO2 [Moles/Vol] 21.1 mmol/L Normal 21.0-32.0 [facility] Comment on above: Performed By: #### B 12FOL, VITAD, IRON #### [facility] [address] [place] [address] Dr. Ekta Funk Creatinine [Mass/Vol] 2.08 mg/dL Critically high 0.55-1.02 [facility] Comment on above: Performed By: #### B 12FOL, VITAD, IRON #### [facility] [address] [place] [address] Dr. Ekta Funk EGFR-AF BRAZILIAN 28 mL/min/1.73m2 Critically low >=60 [facility] Comment on above: Performed By: #### B 12FOL, VITAD, IRON #### [facility] [address] [address] [address] Ekta Funk EGFR-NON AF BRAZILIAN 23 mL/min/1.73m2 Critically low >=60 [facility] Comment on above: Performed By: #### B 12FOL, VITAD, IRON #### [facility] [address] [place] [address] Dr. Ekta Funk Globulin (S) [Mass/Vol] 4.6 g/dL Normal [facility] Comment on above: Performed By: #### B 12FOL, VITAD, IRON #### [facility] [address] [place] [address] Dr. Ekta Funk Glucose [Mass/Vol] 119 mg/dL Critically high 74-106 [facility] Comment on above: Performed By: #### B 12FOL, VITAD, IRON #### [facility] [address] [place] [address] Dr. Ekta Funk Potassium [Moles/Vol] 5.0 mmol/L Normal 3.5-5.1 [facility] Comment on above: Performed By: #### B 12FOL, VITAD, IRON #### [facility] [address] [place] [address] Dr. Ekta Funk Protein [Mass/Vol] 7.3 g/dL Normal 6.4-8.2 [facility] Comment on above: Performed By: #### B 12FOL, VITAD, IRON #### [facility] [address] [place] [address] Dr. Ekta Funk Sodium [Moles/Vol] 143 mmol/L Normal 136-145 [facility] Comment on above: Performed By: #### B 12FOL, VITAD, IRON #### [facility] [address] [place] [address] Dr. Ekta Funk Urea nitrogen [Mass/Vol] 37.0 mg/dL Critically high 7.0-18.0 [facility] Comment on above: Performed By: #### B 12FOL, VITAD, IRON #### [facility] [address] [address] [address] Ekta Funk Urea nitrogen/Creatinine [Mass ratio] 17.8 mg/mg Normal [facility] Comment on above: Performed By: #### B CAROLYN LAUGHLIN, IRON #### [facility] [address] [place], [place] [address] Dr. Ekta Funk TROPONIN, HIGH SENSITIVITYon 11-24-2022 HSTROP 14.1 pg/mL Normal 4.0-51.3 [facility] Comment on above: Result Comment: CUT- OFF POINTS HAVE BEEN ESTABLISHED BASED ON THE FOURTH UNIVERSAL DEFINITIONS OF MYOCARDIAL INFARCTION. THE UPPER REFERENCE LIMIT (URL) OF TROPONIN, DEFINED THE 99TH PERCENTILE OF cTnI DISTRIBUTION IN A REFERENCE POPULATION, HAS BEEN CONFIRMED THE DECISION THRESHOLD FOR OK DIAGNOSIS. Performed By: #### B CAROLYN LAUGHLIN, IRON #### [facility] [address] [place] [address] Dr. Ekta Funk TSHon 11-24-2022 TSH 1.184 uIU/mL Normal 0.358-3.740 [facility] Comment on above: Performed By: #### B CAROLYN LAUGHLIN, IRON #### [facility] [address] [address] [address] Ekta Funk XR CHEST 1 Von [...] greater on the left. Electronically authenticated by: ANTALIIA TATE Date: 2022-11-24 11:00 Normal [facility] BNPon 11-13-2022 Natriuretic peptide B (Bld) [Mass/Vol] 565.0 pg/mL Normal <=900.0 [facility] Comment on above: Performed By: #### I NSULIN #### [facility] [address] [address] [address] Ekta Funk CBC AUTO DIFFon 11-13-2022 BASO # 0.1 103/ul Normal 0.0-0.1 [facility] Comment on above: Performed By: #### C BC #### [facility] [address] [address] [address] Ekta Funk Basophils/100 WBC (Bld) 0.6 % Normal 0.2-2.0 [facility] Comment on above: Performed By: #### C BC #### [facility] [address] [place] [address] Dr. Ekta Funk EO # 0.4 103/ul Normal 0.0-0.7 [facility] Comment on above: Performed By: #### C BC #### [facility] [address] [place] [address] Dr. Ekta Funk Eosinophils/100 WBC (Bld) 3.7 % Normal 0.9-7.0 [facility] Comment on above: Performed By: #### C BC #### [facility] [address] [place] [address] Dr. Ekta Funk Erythrocyte distribution width (RBC) [Ratio] 13.2 % Normal 11.0-15.0 [facility] Comment on above: Performed By: #### C BC #### [facility] [address] [place] [address] Dr. Ekta Funk Hematocrit (Bld) [Volume fraction] 36.7 % Normal 36.0-48.0 [facility] Comment on above: Performed By: #### C BC #### [facility] [address] [place] [address] Dr. Ekta Funk Hemoglobin (Bld) [Mass/Vol] 12.4 g/dL Normal 12.0-16.0 [facility] Comment on above: Performed By: #### C BC #### [facility] [address] [place] [address] Dr. Ekta Funk IG # 0.10 10e3/ul Critically high 0.00-0.03 [facility] Comment on above: Performed By: #### C BC #### [facility] [address] [place] [address] Dr. Ekta Funk IG % 1.0 % Critically high 0.0-0.5 [facility] Comment on above: Performed By: #### C BC #### [facility] [address] [place] [address] Dr. Ekta Funk LYMPH # 1.5 103/ul Normal 1.2-3.8 [facility] Comment on above: Performed By: #### C BC #### [facility] [address] [place] [address] Dr. Ekta Funk Lymphocytes/100 WBC (Bld) 14.9 % Critically low 20.5-60.0 [facility] Comment on above: Performed By: #### C BC #### [facility] [address] [place] [address] Dr. Ekta Funk MANUAL DIFF REQ NO Normal [facility] Comment on above: Performed By: #### C BC #### [facility] [address] [place] [address] Dr. Ekta Funk MCH (RBC) [Entitic mass] 32.8 pg Normal 26.7-34.0 [facility] Comment on above: Performed By: #### C BC #### [facility] [address] [place] [address] Dr. Ekta Funk MCHC (RBC) [Mass/Vol] 33.8 g/dL Normal 29.9-35.2 [facility] Comment on above: Performed By: #### C BC #### [facility] [address] [place] [address] Dr. Ekta Funk MCV (RBC) [Entitic vol] 97.1 fL Normal 81.0-99.0 [facility] Comment on above: Performed By: #### C BC #### [facility] [address] [place] [address] Dr. Ekta Funk MONO # 0.8 103/ul Normal 0.3-0.8 [facility] Comment on above: Performed By: #### C BC #### [facility] [address] [address] [address] Ekta Funk Monocytes/100 WBC (Bld) 7.7 % Normal 1.7-12.0 [facility] Comment on above: Performed By: #### C BC #### [facility] [address] [address] [address] Ekta Funk NEUT # 7.3 103/ul Critically high 1.4-6.5 [facility] Comment on above: Performed By: #### C BC #### [facility] [address] [address] [address] Ekta Funk Neutrophils/100 WBC (Bld) 72.1 % Normal 43.0-75.0 [facility] Comment on above: Performed By: #### C BC #### [facility] [address] [place] [address] Dr. Ekta Funk Platelet mean volume (Bld) [Entitic vol] 9.4 fL Critically low 9.5-13.5 [facility] Comment on above: Performed By: #### C BC #### [facility] [address] [place] [address] Dr. Ekta Funk PLT 251 103/ul Normal 150-450 [facility] Comment on above: Performed By: #### C BC #### [facility] [address] [place] [address] Dr. Ekta Funk RBC 3.78 106/ul Critically low 4.20-5.40 [facility] Comment on above: Performed By: #### C BC #### [facility] [address] [place] [address] Dr. Ekta Funk WBC 10.1 103/ul Normal 4.0-11.0 [facility] Comment on above: Performed By: #### C BC #### [facility] [address] [place] [address] Dr. Ekta Funk FREE THYROXINE INDEX T7on FTI 2.73 Normal 1.30-4.50 [facility] Comment on above: Performed By: #### I NSULIN #### [facility] [address] [address] [address] Ekta Funk T3U 35.0 % Normal 30.0-39.0 [facility] Comment on above: Performed By: #### I NSULIN #### [facility] [address] [address] [address] Ekta Funk T4 [Mass/Vol] 7.80 ug/dL Normal 4.80-13.90 [facility] Comment on above: Performed By: #### I NSULIN #### [facility] [address] [address] [address] Ekta Funk GLYCOHEMOGLOBIN A1Con 2022 ADA RECOMMENDATION SEE BELOW Normal [facility] Comment on above: Result Comment: ADA RECOMMENDED LIMIT 4.0 - 6.0 ADA THERAPEUTIC TARGET < 7.0 ACTION SUGGESTED > 7.0 Performed By: #### B 12FOL, VITAD, IRON #### [facility] [address] [address] [address] Ekta Funk Glucose [Mass/Vol] 134 mg/dL Normal [facility] Comment on above: Performed By: #### B 12FOL, VITAD, IRON #### [facility] [address] [place] [address] Dr. Ekta Funk HbA1c (Bld) [Mass fraction] 6.3 % Critically high 4.5-6.2 [facility] Comment on above: Performed By: #### B 12FOL, VITAD, IRON #### [facility] [address] [address] [address] Ekta Funk IRONon 11-13-2022 Iron [Mass/Vol] 55.0 ug/dL Normal 50.0-170.0 [facility] Comment on above: Performed By: #### B 12FOL, VITAD, IRON #### [facility] [address] [place] [address] Dr. Ekta Funk LIPID PROFILEon 11-13-2022 CHOL-HDL RATIO NORM SEE BELOW Normal [facility] Comment on above: Result Comment: 3.3 - 4.4 LOW RISK 4.4 - 7.1 AVERAGE RISK 7.1 - 11.0 MODERATE RISK >11.0 HIGH RISK Performed By: #### I NSULIN #### [facility] [address] [address] [address] Ekta Funk Cholesterol [Mass/Vol] 294 mg/dL Critically high <=200 [facility] Comment on above: Performed By: #### I NSULIN #### [facility] [address] [address] [address] Ekta Funk Cholesterol in HDL [Mass/Vol] 64 mg/dL Critically high 40-60 [facility] Comment on above: Performed By: #### I NSULIN #### [facility] [address] [address] [address] Ekta Funk Cholesterol in LDL [Mass/Vol] 197.2 mg/dL Normal [facility] Comment on above: Performed By: #### I NSULIN #### [facility] [address] [address] [address] Ekta Funk Cholesterol.total/Ch olesterol in HDL [Mass ratio] 4.6 {ratio} Normal [facility] Comment on above: Performed By: #### I NSULIN #### [facility] [address] [address] [address] Ekta Funk HDL NORMAL > or = 60 mg/dl - LO W CARDIOVASCULAR RISK <40 mg/dl - HIGH CARDIOVASCULAR RISK Normal [facility] Comment on above: Performed By: #### I NSULIN #### [facility] [address] [address] [address] Ekta Funk LDL CALC NORMAL SEE BELOW Normal [facility] Comment on above: Result Comment: <100 mg/dl OPTIMAL 100 - 129 mg/dl NEAR OR ABOVE OPTIMAL 130 - 159 mg/dl BORDERLINE HIGH 160 - 189 mg/dl HIGH >190 mg/dl VERY HIGH Performed By: #### I NSULIN #### [facility] [address] [address] [address] Ekta Funk Triglyceride [Mass/Vol] 164 mg/dL Critically high <=150 [facility] Comment on above: Performed By: #### I NSULIN #### [facility] [address] [place] [address] Dr. Ekta Funk VLDL CALC 32.8 mg/dL Normal [facility] Comment on above: Performed By: #### I NSULIN #### [facility] [address] [place] [address] Dr. Ekta Funk PROF 14(COMP METB)on 023 Albumin [Mass/Vol] 3.0 g/dL Critically low 3.4-5.0 [facility] Comment on above: Performed By: #### I NSULIN #### [facility] [address] [place] [address] Dr. Ekta Funk Albumin/Globulin [Mass ratio] 0.6 {ratio} Normal [facility] Comment on above: Performed By: #### I NSULIN #### [facility] [address] [place] [address] Dr. Ekta Funk ALP [Catalytic activity/Vol] 92 U/L Normal 46-116 [facility] Comment on above: Performed By: #### I NSULIN #### [facility] [address] [place] [address] Dr. Ekta Funk ALT [Catalytic activity/Vol] 26 U/L Normal 14-59 [facility] Comment on above: Performed By: #### I NSULIN #### [facility] [address] [place] [address] Dr. Ekta Funk Anion gap [Moles/Vol] 16.2 mmol/L Normal [facility] Comment on above: Performed By: #### I NSULIN #### [facility] [address] [place] [address] Dr. Ekta Funk AST [Catalytic activity/Vol] 16 U/L Normal 15-37 [facility] Comment on above: Performed By: #### I NSULIN #### [facility] [address] [place] [address] Dr. Ekta Funk Bilirubin [Mass/Vol] 0.5 mg/dL Normal 0.2-1.0 [facility] Comment on above: Performed By: #### I NSULIN #### [facility] [address] [place], [place] [id number] Dr. Ekta Funk Calcium [Mass/Vol] 9.7 mg/dL Normal 8.5-10.1 [facility] Comment on above: Performed By: #### I NSULIN #### [facility] [address] [place] [address] Dr. Ekta Funk Chloride [Moles/Vol] 105 mmol/L Normal 98-107 [facility] Comment on above: Performed By: #### I NSULIN #### [facility] [address] [address] [address] Ekta Funk CO2 [Moles/Vol] 24.9 mmol/L Normal 21.0-32.0 [facility] Comment on above: Performed By: #### I NSULIN #### [facility] [address] [place] [address] Dr. Ekta Funk Creatinine [Mass/Vol] 2.18 mg/dL Critically high 0.55-1.02 [facility] Comment on above: Performed By: #### I NSULIN #### [facility] [address] [place] [address] Dr. Ekta Funk EGFR-AF BRAZILIAN 27 mL/min/1.73m2 Critically low >=60 [facility] Comment on above: Performed By: #### I NSULIN #### [facility] [address] [place] [address] Dr. Ekta Funk EGFR-NON AF BRAZILIAN 22 mL/min/1.73m2 Critically low >=60 [facility] Comment on above: Performed By: #### I NSULIN #### [facility] [address] [place] [address] Dr. Ekta Funk Globulin (S) [Mass/Vol] 4.7 g/dL Normal [facility] Comment on above: Performed By: #### I NSULIN #### [facility] [address] [place] [address] Dr. Ekta Funk Glucose [Mass/Vol] 114 mg/dL Critically high 74-106 T [facility] Comment on above: Performed By: #### I NSULIN #### [facility] [address] [place] [address] Dr. Ekta Funk Potassium [Moles/Vol] 5.1 mmol/L Normal 3.5-5.1 [facility] Comment on above: Performed By: #### I NSULIN #### [facility] [address] [address] [address] Ekta Funk Protein [Mass/Vol] 7.7 g/dL Normal 6.4-8.2 [facility] Comment on above: Performed By: #### I NSULIN #### [facility] [address] [address] [address] Ekta Funk Sodium [Moles/Vol] 141 mmol/L Normal 136-145 [facility] Comment on above: Performed By: #### I NSULIN #### [facility] [address] [address] [address] Ekta Funk Urea nitrogen [Mass/Vol] 51.0 mg/dL Critically high 7.0-18.0 [facility] Comment on above: Performed By: #### I NSULIN #### [facility] [address] [address] [address] Ekta Funk Urea nitrogen/Creatinine [Mass ratio] 23.4 mg/mg Normal [facility] Comment on above: Performed By: #### I NSULIN #### [facility] [address] [address] [address] Ekta Funk TSHon 11-13-2022 TSH 0.935 uIU/mL Normal 0.358-3.740 [facility] Comment on above: Performed By: #### I NSULIN #### [facility] [address] [place] [address] Dr. Ekta Funk XR CHEST 2 Von [...] GODWIN BECK Date: 2022-11-13 15:40 Normal [facility] PROF 14(COMP METB)on 023 Albumin [Mass/Vol] 3.0 g/dL Critically low 3.4-5.0 [facility] Comment on above: Performed By: #### B 12FOL, VITAD, IRON #### [facility] [address] [place] [address] Dr. Ekta Funk Albumin/Globulin [Mass ratio] 0.7 {ratio} Normal [facility] Comment on above: Performed By: #### B 12FOL, VITAD, IRON #### [facility] [address] [place] [address] Dr. Ekta Funk ALP [Catalytic activity/Vol] 89 U/L Normal 46-116 [facility] Comment on above: Performed By: #### B 12FOL, VITAD, IRON #### [facility] [address] [place] [address] Dr. Ekta Funk ALT [Catalytic activity/Vol] 29 U/L Normal 14-59 [facility] Comment on above: Performed By: #### B 12FOL, VITAD, IRON #### [facility] [address] [place] [address] Dr. Ekta Funk Anion gap [Moles/Vol] 15.2 mmol/L Normal [facility] Comment on above: Performed By: #### B 12FOL, VITAD, IRON #### [facility] [address] [place] [address] Dr. Ekta Funk AST [Catalytic activity/Vol] 14 U/L Critically low 15-37 [facility] Comment on above: Performed By: #### B 12FOL, VITAD, IRON #### [facility] [address] [place] [address] Dr. Ekta Funk Bilirubin [Mass/Vol] 0.4 mg/dL Normal 0.2-1.0 [facility] Comment on above: Performed By: #### B 12FOL, VITAD, IRON #### [facility] [address] [place] [address] Dr. Ekta Funk Calcium [Mass/Vol] 9.1 mg/dL Normal 8.5-10.1 [facility] Comment on above: Performed By: #### B 12FOL, VITAD, IRON #### [facility] [address] [place] [address] Dr. Ekta Funk Chloride [Moles/Vol] 106 mmol/L Normal 98-107 [facility] Comment on above: Performed By: #### B 12FOL, VITAD, IRON #### [facility] [address] [place] [address] Dr. Ekta Funk CO2 [Moles/Vol] 24.2 mmol/L Normal 21.0-32.0 [facility] Comment on above: Performed By: #### B 12FOL, VITAD, IRON #### [facility] [address] [place] [address] Dr. Ekta Funk Creatinine [Mass/Vol] 1.89 mg/dL Critically high 0.55-1.02 [facility] Comment on above: Performed By: #### B 12FOL, VITAD, IRON #### [facility] [address] [place] [address] Dr. Ekta Funk EGFR-AF BRAZILIAN 32 mL/min/1.73m2 Critically low >=60 [facility] Comment on above: Performed By: #### B 12FOL, VITAD, IRON #### [facility] [address] [place] [address] Dr. Ekta Funk EGFR-NON AF BRAZILIAN 26 mL/min/1.73m2 Critically low >=60 [facility] Comment on above: Performed By: #### B 12FOL, VITAD, IRON #### [facility] [address] [place] [address] Dr. Ekta Fnuk Globulin (S) [Mass/Vol] 4.1 g/dL Normal [facility] Comment on above: Performed By: #### B 12FOL, VITAD, IRON #### [facility] [address] [place] [address] Dr. Ekta Funk Glucose [Mass/Vol] 108 mg/dL Critically high 74-106 [facility] Comment on above: Performed By: #### B 12FOL, VITAD, IRON #### [facility] [address] [place] [address] Dr. Ekta Funk Potassium [Moles/Vol] 4.4 mmol/L Normal 3.5-5.1 [facility] Comment on above: Performed By: #### B 12FOL, VITAD, IRON #### [facility] [address] [place] [address] Dr. Ekta Funk Protein [Mass/Vol] 7.1 g/dL Normal 6.4-8.2 [facility] Comment on above: Performed By: #### B 12FOL, VITAD, IRON #### [facility] [address] [place] [address] Dr. Ekta Funk Sodium [Moles/Vol] 141 mmol/L Normal 136-145 [facility] Comment on above: Performed By: #### B 12FOL, VITAD, IRON #### [facility] [address] [place] [address] Dr. Ekta Funk Urea nitrogen [Mass/Vol] 40.0 mg/dL Critically high 7.0-18.0 [facility] Comment on above: Performed By: #### B 12FOL, VITAD, IRON #### [facility] [address] [place] [address] Dr. Ekta Funk Urea nitrogen/Creatinine [Mass ratio] 21.2 mg/mg Normal [facility] Comment on above: Performed By: #### B 12FOL, VITAD, IRON #### [facility] [address] [place] [address] Dr. Ekta Funk BNPon 10-23-2022 Natriuretic peptide B (Bld) [Mass/Vol] 507.0 pg/mL Normal <=900.0 [facility] Comment on above: Performed By: #### B 12FOL, VITAD, IRON #### [facility] [address] [place] [address] Dr. Ekta Funk CBC AUTO DIFFon 10-23-2022 BASO # 0.0 103/ul Normal 0.0-0.1 [facility] Comment on above: Performed By: #### C BC #### [facility] [address] [address] [address] Ekta Funk Basophils/100 WBC (Bld) 0.2 % Normal 0.2-2.0 [facility] Comment on above: Performed By: #### C BC #### [facility] [address] [address] [address] Ekta Funk EO # 0.1 103/ul Normal 0.0-0.7 [facility] Comment on above: Performed By: #### C BC #### [facility] [address] [place] [address] Dr. Ekta Funk Eosinophils/100 WBC (Bld) 1.1 % Normal 0.9-7.0 [facility] Comment on above: Performed By: #### C BC #### [facility] [address] [place] [address] Dr. Ekta Funk Erythrocyte distribution width (RBC) [Ratio] 12.8 % Normal 11.0-15.0 [facility] Comment on above: Performed By: #### C BC #### [facility] [address] [place] [address] Dr. Ekta Funk Hematocrit (Bld) [Volume fraction] 37.1 % Normal 36.0-48.0 [facility] Comment on above: Performed By: #### C BC #### [facility] [address] [place] [address] Dr. Ekta Funk Hemoglobin (Bld) [Mass/Vol] 13.0 g/dL Normal 12.0-16.0 [facility] Comment on above: Performed By: #### C BC #### [facility] [address] [place] [address] Dr. Ekta Funk IG # 0.11 10e3/ul Critically high 0.00-0.03 [facility] Comment on above: Performed By: #### C BC #### [facility] [address] [place] [address] Dr. Ekta Funk IG % 1.1 % Critically high 0.0-0.5 [facility] Comment on above: Performed By: #### C BC #### [facility] [address] [place] [address] Dr. Ekta Funk LYMPH # 1.6 103/ul Normal 1.2-3.8 [facility] Comment on above: Performed By: #### C BC #### [facility] [address] [place] [address] Dr. Ekta Funk Lymphocytes/100 WBC (Bld) 15.6 % Critically low 20.5-60.0 [facility] Comment on above: Performed By: #### C BC #### [facility] [address] [place] [address] Dr. Ekta Funk MANUAL DIFF REQ NO Normal [facility] Comment on above: Performed By: #### C BC #### [facility] [address] [place] [address] Dr. Ekta Funk MCH (RBC) [Entitic mass] 32.8 pg Normal 26.7-34.0 [facility] Comment on above: Performed By: #### C BC #### [facility] [address] [place] [address] Dr. Ekta Funk MCHC (RBC) [Mass/Vol] 35.0 g/dL Normal 29.9-35.2 [facility] Comment on above: Performed By: #### C BC #### [facility] [address] [place] [address] Dr. Ekta Funk MCV (RBC) [Entitic vol] 93.7 fL Normal 81.0-99.0 [facility] Comment on above: Performed By: #### C BC #### [facility] [address] [place] [address] Dr. Ekta Funk MONO # 0.9 103/ul Critically high 0.3-0.8 [facility] Comment on above: Performed By: #### C BC #### [facility] [address] [place] [address] Dr. Ekta Funk Monocytes/100 WBC (Bld) 8.3 % Normal 1.7-12.0 [facility] Comment on above: Performed By: #### C BC #### [facility] [address] [place] [address] Dr. Ekta Funk NEUT # 7.5 103/ul Critically high 1.4-6.5 [facility] Comment on above: Performed By: #### C BC #### [facility] [address] [address] [address] Ekta Funk Neutrophils/100 WBC (Bld) 73.7 % Normal 43.0-75.0 [facility] Comment on above: Performed By: #### C BC #### [facility] [address] [place] [address] Dr. Ekta Funk Platelet mean volume (Bld) [Entitic vol] 10.3 fL Normal 9.5-13.5 [facility] Comment on above: Performed By: #### C BC #### [facility] [address] [place] [address] Dr. Ekta Funk PLT 135 103/ul Critically low 150-450 [facility] Comment on above: Performed By: #### C BC #### [facility] [address] [place] [address] Dr. Ekta Funk RBC 3.96 106/ul Critically low 4.20-5.40 [facility] Comment on above: Performed By: #### C BC #### [facility] [address] [place] [address] Dr. Ekta Funk WBC 10.2 103/ul Normal 4.0-11.0 [facility] Comment on above: Performed By: #### C BC #### [facility] [address] [place] [address] Dr. Ekta Fnuk PROF 14(COMP METB)on 023 Albumin [Mass/Vol] 2.7 g/dL Critically low 3.4-5.0 [facility] Comment on above: Performed By: #### B 12FOL, VITAD, IRON #### [facility] [address] [place] [address] Dr. Ekta Funk Albumin/Globulin [Mass ratio] 0.8 {ratio} Normal [facility] Comment on above: Performed By: #### B 12FOL, VITAD, IRON #### [facility] [address] [place] [address] Dr. Ekta Funk ALP [Catalytic activity/Vol] 74 U/L Normal 46-116 [facility] Comment on above: Performed By: #### B 12FOL, VITAD, IRON #### [facility] [address] [place] [address] Dr. Ekta Funk ALT [Catalytic activity/Vol] 26 U/L Normal 14-59 [facility] Comment on above: Performed By: #### B 12FOL, VITAD, IRON #### [facility] [address] [place] [address] Dr. Ekta Funk Anion gap [Moles/Vol] 16.5 mmol/L Normal [facility] Comment on above: Performed By: #### B 12FOL, VITAD, IRON #### [facility] [address] [place] [address] Dr. Ekta Funk AST [Catalytic activity/Vol] 15 U/L Normal 15-37 [facility] Comment on above: Performed By: #### B 12FOL, VITAD, IRON #### [facility] [address] [place] [address] Dr. Ekta Funk Bilirubin [Mass/Vol] 0.4 mg/dL Normal 0.2-1.0 [facility] Comment on above: Performed By: #### B 12FOL, VITAD, IRON #### [facility] [address] [place] [address] Dr. Ekta Funk Calcium [Mass/Vol] 8.1 mg/dL Critically low 8.5-10.1 [facility] Comment on above: Performed By: #### B 12FOL, VITAD, IRON #### [facility] [address] [place] [address] Dr. Ekta Funk Chloride [Moles/Vol] 96 mmol/L Critically low 98-107 [facility] Comment on above: Performed By: #### B 12FOL, VITAD, IRON #### [facility] [address] [place] [address] Dr. Ekta Funk CO2 [Moles/Vol] 26.1 mmol/L Normal 21.0-32.0 [facility] Comment on above: Performed By: #### B 12FOL, VITAD, IRON #### [facility] [address] [place] [address] Dr. Ekta Funk Creatinine [Mass/Vol] 3.28 mg/dL Critically high 0.55-1.02 [facility] Comment on above: Performed By: #### B 12FOL, VITAD, IRON #### [facility] [address] [place] [address] Dr. Ekta Funk EGFR-AF BRAZILIAN 17 mL/min/1.73m2 Critically low >=60 [facility] Comment on above: Performed By: #### B 12FOL, VITAD, IRON #### [facility] [address] [place] [address] Dr. Ekta Funk EGFR-NON AF BRAZILIAN 14 mL/min/1.73m2 Critically low >=60 [facility] Comment on above: Performed By: #### B 12FOL, VITAD, IRON #### [facility] [address] [place] [address] Dr. Ekta Funk Globulin (S) [Mass/Vol] 3.6 g/dL Normal [facility] Comment on above: Performed By: #### B 12FOL, VITAD, IRON #### [facility] [address] [place] [address] Dr. Ekta Funk Glucose [Mass/Vol] 132 mg/dL Critically high 74-106 T [facility] Comment on above: Performed By: #### B 12FOL, VITAD, IRON #### [facility] [address] [place] [address] Dr. Ekta Funk Potassium [Moles/Vol] 4.6 mmol/L Normal 3.5-5.1 [facility] Comment on above: Performed By: #### B 12FOL, VITAD, IRON #### [facility] [address] [place] [address] Dr. Ekta Funk Protein [Mass/Vol] 6.3 g/dL Critically low 6.4-8.2 [facility] Comment on above: Performed By: #### B 12FOL, VITAD, IRON #### [facility] [address] [place] [address] Dr. Ekta Funk Sodium [Moles/Vol] 134 mmol/L Critically low 136-145 [facility] Comment on above: Performed By: #### B 12FOL, VITAD, IRON #### [facility] [address] [place] [address] Dr. Ekta Funk Urea nitrogen [Mass/Vol] 74.0 mg/dL Critically high 7.0-18.0 [facility] Comment on above: Performed By: #### B 12FOL, VITAD, IRON #### [facility] [address] [place] [address] Dr. Ekta Funk Urea nitrogen/Creatinine [Mass ratio] 22.6 mg/mg Normal [facility] Comment on above: Performed By: #### B 12FOL, VITAD, IRON #### [facility] [address] [place] [address] Dr. Ekta Funk BNPon 10-22-2022 Natriuretic peptide B (Bld) [Mass/Vol] 1411.0 pg/mL Critically high <=900.0 [facility] Comment on above: Performed By: #### B 12FOL, VITAD, IRON #### [facility] [address] [place] [address] Dr. Ekta Funk CBC AUTO DIFFon 10-22-2022 BASO # 0.0 103/ul Normal 0.0-0.1 [facility] Comment on above: Performed By: #### B 12FOL, VITAD, IRON #### [facility] [address] [place] [address] Dr. Ekta Funk Basophils/100 WBC (Bld) 0.3 % Normal 0.2-2.0 [facility] Comment on above: Performed By: #### B 12FOL, VITAD, IRON #### [facility] [address] [place] [address] Dr. Ekta Funk EO # 0.1 103/ul Normal 0.0-0.7 [facility] Comment on above: Performed By: #### B 12FOL, VITAD, IRON #### [facility] [address] [place] [address] Dr. Ekta Funk Eosinophils/100 WBC (Bld) 0.6 % Critically low 0.9-7.0 [facility] Comment on above: Performed By: #### B 12FOL, VITAD, IRON #### [facility] [address] [place] [address] Dr. Ekta Funk Erythrocyte distribution width (RBC) [Ratio] 12.9 % Normal 11.0-15.0 [facility] Comment on above: Performed By: #### B 12FOL, VITAD, IRON #### [facility] [address] [place] [address] Dr. Ekta Funk Hematocrit (Bld) [Volume fraction] 40.8 % Normal 36.0-48.0 [facility] Comment on above: Performed By: #### B 12FOL, VITAD, IRON #### [facility] [address] [place] [address] Dr. Ekta Funk Hemoglobin (Bld) [Mass/Vol] 14.0 g/dL Normal 12.0-16.0 [facility] Comment on above: Performed By: #### B 12FOL, VITAD, IRON #### [facility] [address] [place] [address] Dr. Ekta Funk IG # 0.09 10e3/ul Critically high 0.00-0.03 [facility] Comment on above: Performed By: #### B 12FOL, VITAD, IRON #### [facility] [address] [place] [address] Dr. Ekta Funk IG % 0.8 % Critically high 0.0-0.5 [facility] Comment on above: Performed By: #### B 12FOL, VITAD, IRON #### [facility] [address] [place] [address] Dr. Ekta Funk LYMPH # 1.8 103/ul Normal 1.2-3.8 [facility] Comment on above: Performed By: #### B 12FOL, VITAD, IRON #### [facility] [address] [place] [address] Dr. Ekta Funk Lymphocytes/100 WBC (Bld) 16.2 % Critically low 20.5-60.0 [facility] Comment on above: Performed By: #### B 12FOL, VITAD, IRON #### [facility] [address] [place] [address] Dr. Ekta Funk MANUAL DIFF REQ NO Normal [facility] Comment on above: Performed By: #### B 12FOL, VITAD, IRON #### [facility] [address] [place] [address] Dr. Ekta Funk MCH (RBC) [Entitic mass] 32.3 pg Normal 26.7-34.0 [facility] Comment on above: Performed By: #### B 12FOL, VITAD, IRON #### [facility] [address] [place] [address] Dr. Ekta Funk MCHC (RBC) [Mass/Vol] 34.3 g/dL Normal 29.9-35.2 [facility] Comment on above: Performed By: #### B 12FOL, VITAD, IRON #### [facility] [address] [place] [address] Dr. Ekta Funk MCV (RBC) [Entitic vol] 94.2 fL Normal 81.0-99.0 [facility] Comment on above: Performed By: #### B 12FOL, VITAD, IRON #### [facility] [address] [place] [address] Dr. Ekta Funk MONO # 0.8 103/ul Normal 0.3-0.8 [facility] Comment on above: Performed By: #### B 12FOL, VITAD, IRON #### [facility] [address] [place] [address] Dr. Ekta Funk Monocytes/100 WBC (Bld) 7.3 % Normal 1.7-12.0 [facility] Comment on above: Performed By: #### B 12FOL, VITAD, IRON #### [facility] [address] [address] [address] Ekta Funk NEUT # 8.1 103/ul Critically high 1.4-6.5 [facility] Comment on above: Performed By: #### B 12FOL, VITAD, IRON #### [facility] [address] [place] [address] Dr. Ekta Funk Neutrophils/100 WBC (Bld) 74.8 % Normal 43.0-75.0 [facility] Comment on above: Performed By: #### B 12FOL, VITAD, IRON #### [facility] [address] [place] [address] Dr. Ekta Funk Platelet mean volume (Bld) [Entitic vol] 9.8 fL Normal 9.5-13.5 [facility] Comment on above: Performed By: #### B 12FOL, VITAD, IRON #### [facility] [address] [place] [address] Dr. Ekta Funk PLT 226 103/ul Normal 150-450 [facility] Comment on above: Performed By: #### B 12FOL, VITAD, IRON #### [facility] [address] [place] [address] Dr. Ekta Funk RBC 4.33 106/ul Normal 4.20-5.40 [facility] Comment on above: Performed By: #### B 12FOL, VITAD, IRON #### [facility] [address] [place] [address] Dr. Ekta Funk WBC 10.9 103/ul Normal 4.0-11.0 [facility] Comment on above: Performed By: #### B 12FOL, VITAD, IRON #### [facility] [address] [place] [address] Dr. Ekta Funk PROF 14(COMP METB)on 023 Albumin [Mass/Vol] 3.1 g/dL Critically low 3.4-5.0 [facility] Comment on above: Performed By: #### B 12FOL, VITAD, IRON #### [facility] [address] [place] [address] Dr. Ekta Funk Albumin/Globulin [Mass ratio] 0.7 {ratio} Normal [facility] Comment on above: Performed By: #### B 12FOL, VITAD, IRON #### [facility] [address] [place] [address] Dr. Ekta Funk ALP [Catalytic activity/Vol] 81 U/L Normal 46-116 [facility] Comment on above: Performed By: #### B 12FOL, VITAD, IRON #### [facility] [address] [place] [address] Dr. Ekta Funk ALT [Catalytic activity/Vol] 30 U/L Normal 14-59 [facility] Comment on above: Performed By: #### B 12FOL, VITAD, IRON #### [facility] [address] [place] [address] Dr. Ekta Funk Anion gap [Moles/Vol] 17.3 mmol/L Normal [facility] Comment on above: Performed By: #### B 12FOL, VITAD, IRON #### [facility] [address] [place] [address] Dr. Ekta Funk AST [Catalytic activity/Vol] 11 U/L Critically low 15-37 [facility] Comment on above: Performed By: #### B 12FOL, VITAD, IRON #### [facility] [address] [place] [address] Dr. Ekta Funk Bilirubin [Mass/Vol] 0.5 mg/dL Normal 0.2-1.0 [facility] Comment on above: Performed By: #### B 12FOL, VITAD, IRON #### [facility] [address] [place] [address] Dr. Ekta Funk Calcium [Mass/Vol] 8.6 mg/dL Normal 8.5-10.1 [facility] Comment on above: Performed By: #### B 12FOL, VITAD, IRON #### [facility] [address] [place] [address] Dr. Ekta Funk Chloride [Moles/Vol] 95 mmol/L Critically low 98-107 [facility] Comment on above: Performed By: #### B 12FOL, VITAD, IRON #### [facility] [address] [place] [address] Dr. Ekta Funk CO2 [Moles/Vol] 27.3 mmol/L Normal 21.0-32.0 [facility] Comment on above: Performed By: #### B 12FOL, VITAD, IRON #### [facility] [address] [place] [address] Dr. Ekta Funk Creatinine [Mass/Vol] 3.17 mg/dL Critically high 0.55-1.02 [facility] Comment on above: Performed By: #### B 12FOL, VITAD, IRON #### [facility] [address] [place] [address] Dr. Ekta Funk EGFR-AF BRAZILIAN 17 mL/min/1.73m2 Critically low >=60 [facility] Comment on above: Performed By: #### B 12FOL, VITAD, IRON #### [facility] [address] [place] [address] Dr. Ekta Funk EGFR-NON AF BRAZILIAN 14 mL/min/1.73m2 Critically low >=60 [facility] Comment on above: Performed By: #### B 12FOL, VITAD, IRON #### [facility] [address] [place] [address] Dr. Ekta Funk Globulin (S) [Mass/Vol] 4.6 g/dL Normal [facility] Comment on above: Performed By: #### B 12FOL, VITAD, IRON #### [facility] [address] [place] [address] Dr. Ekta Funk Glucose [Mass/Vol] 139 mg/dL Critically high 74-106 T [facility] Comment on above: Performed By: #### B 12FOL, VITAD, IRON #### [facility] [address] [place] [address] Dr. Ekta Funk Potassium [Moles/Vol] 4.6 mmol/L Normal 3.5-5.1 [facility] Comment on above: Performed By: #### B 12FOL, VITAD, IRON #### [facility] [address] [place] [address] Dr. Ekta Funk Protein [Mass/Vol] 7.7 g/dL Normal 6.4-8.2 [facility] Comment on above: Performed By: #### B 12FOL, VITAD, IRON #### [facility] [address] [place] [address] Dr. Ekta Funk Sodium [Moles/Vol] 135 mmol/L Critically low 136-145 [facility] Comment on above: Performed By: #### B 12FOL, VITAD, IRON #### [facility] [address] [place] [address] Dr. Ekta Funk Urea nitrogen [Mass/Vol] 73.0 mg/dL Critically high 7.0-18.0 [facility] Comment on above: Performed By: #### B 12FOL, VITAD, IRON #### [facility] [address] [place] [address] Dr. Ekta Funk Urea nitrogen/Creatinine [Mass ratio] 23.0 mg/mg Normal [facility] Comment on above: Performed By: #### B 12FOL, VITAD, IRON #### [facility] [address] [place] [address] Dr. Ekta Funk BNPon 10-21-2022 Natriuretic peptide B (Bld) [Mass/Vol] 2007.0 pg/mL Critically high <=900.0 [facility] Comment on above: Performed By: #### C MP #### [facility] [address] [place] [address] Dr. Ekta Funk CBC AUTO DIFFon 10-21-2022 BASO # 0.0 103/ul Normal 0.0-0.1 [facility] Comment on above: Performed By: #### C BC #### [facility] [address] [place] [address] Dr. Ekta Funk Basophils/100 WBC (Bld) 0.2 % Normal 0.2-2.0 [facility] Comment on above: Performed By: #### C BC #### [facility] [address] [place] [address] Dr. Ekta Funk EO # 0.1 103/ul Normal 0.0-0.7 [facility] Comment on above: Performed By: #### C BC #### [facility] [address] [place] [address] Dr. Ekta Funk Eosinophils/100 WBC (Bld) 0.9 % Normal 0.9-7.0 [facility] Comment on above: Performed By: #### C BC #### [facility] [address] [place] [address] Dr. Ekta Funk Erythrocyte distribution width (RBC) [Ratio] 12.8 % Normal 11.0-15.0 [facility] Comment on above: Performed By: #### C BC #### [facility] [address] [place] [address] Dr. Ekta Funk Hematocrit (Bld) [Volume fraction] 38.8 % Normal 36.0-48.0 [facility] Comment on above: Performed By: #### C BC #### [facility] [address] [place] [address] Dr. Ekta Funk Hemoglobin (Bld) [Mass/Vol] 13.3 g/dL Normal 12.0-16.0 [facility] Comment on above: Performed By: #### C BC #### [facility] [address] [place] [address] Dr. Ekta Funk IG # 0.08 10e3/ul Critically high 0.00-0.03 [facility] Comment on above: Performed By: #### C BC #### [facility] [address] [place] [address] Dr. Ekta Funk IG % 0.8 % Critically high 0.0-0.5 [facility] Comment on above: Performed By: #### C BC #### [facility] [address] [place] [address] Dr. Ekta Funk LYMPH # 1.7 103/ul Normal 1.2-3.8 [facility] Comment on above: Performed By: #### C BC #### [facility] [address] [place] [address] Dr. Ekta Funk Lymphocytes/100 WBC (Bld) 17.3 % Critically low 20.5-60.0 [facility] Comment on above: Performed By: #### C BC #### [facility] [address] [place] [address] Dr. Ekta Funk MANUAL DIFF REQ NO Normal [facility] Comment on above: Performed By: #### C BC #### [facility] [address] [place] [address] Dr. Ekta Funk MCH (RBC) [Entitic mass] 32.1 pg Normal 26.7-34.0 [facility] Comment on above: Performed By: #### C BC #### [facility] [address] [place] [address] Dr. Ekta Funk MCHC (RBC) [Mass/Vol] 34.3 g/dL Normal 29.9-35.2 [facility] Comment on above: Performed By: #### C BC #### [facility] [address] [place] [address] Dr. Ekta Funk MCV (RBC) [Entitic vol] 93.7 fL Normal 81.0-99.0 [facility] Comment on above: Performed By: #### C BC #### [facility] [address] [place] [address] Dr. Ekta Funk MONO # 0.6 103/ul Normal 0.3-0.8 [facility] Comment on above: Performed By: #### C BC #### [facility] [address] [place] [address] Dr. Ekta Funk Monocytes/100 WBC (Bld) 6.4 % Normal 1.7-12.0 [facility] Comment on above: Performed By: #### C BC #### [facility] [address] [place] [address] Dr. Ekta Funk NEUT # 7.4 103/ul Critically high 1.4-6.5 [facility] Comment on above: Performed By: #### C BC #### [facility] [address] [address] [address] Ekta Funk Neutrophils/100 WBC (Bld) 74.4 % Normal 43.0-75.0 [facility] Comment on above: Performed By: #### C BC #### [facility] [address] [address] [address] Ekta Funk Platelet mean volume (Bld) [Entitic vol] 9.8 fL Normal 9.5-13.5 [facility] Comment on above: Performed By: #### C BC #### [facility] [address] [address] [address] Ekta Funk PLT 193 103/ul Normal 150-450 [facility] Comment on above: Performed By: #### C BC #### [facility] [address] [place] [address] Dr. Ekta Funk RBC 4.14 106/ul Critically low 4.20-5.40 [facility] Comment on above: Performed By: #### C BC #### [facility] [address] [address] [address] Ekta Funk WBC 9.9 103/ul Normal 4.0-11.0 [facility] Comment on above: Performed By: #### C BC #### [facility] [address] [place] [address] Dr. Ekta Funk PROF 14(COMP METB)on 023 Albumin [Mass/Vol] 3.2 g/dL Critically low 3.4-5.0 [facility] Comment on above: Performed By: #### I NSULIN #### [facility] [address] [address] [address] Ekta Funk Albumin/Globulin [Mass ratio] 0.8 {ratio} Normal [facility] Comment on above: Performed By: #### I NSULIN #### [facility] [address] [address] [address] Ekta Funk ALP [Catalytic activity/Vol] 82 U/L Normal 46-116 [facility] Comment on above: Performed By: #### I NSULIN #### [facility] [address] [address] [address] Ekta Funk ALT [Catalytic activity/Vol] 38 U/L Normal 14-59 [facility] Comment on above: Performed By: #### I NSULIN #### [facility] [address] [address] [address] Ekta Funk Anion gap [Moles/Vol] 19.1 mmol/L Normal [facility] Comment on above: Performed By: #### I NSULIN #### [facility] [address] [address] [address] Ekta Funk AST [Catalytic activity/Vol] 19 U/L Normal 15-37 [facility] Comment on above: Performed By: #### I NSULIN #### [facility] [address] [place] [address] Dr. Ekta Funk Bilirubin [Mass/Vol] 0.4 mg/dL Normal 0.2-1.0 [facility] Comment on above: Performed By: #### I NSULIN #### [facility] [address] [address] [address] Ekta Funk Calcium [Mass/Vol] 9.2 mg/dL Normal 8.5-10.1 [facility] Comment on above: Performed By: #### I NSULIN #### [facility] [address] [address] [address] Ekta Funk Chloride [Moles/Vol] 98 mmol/L Normal 98-107 [facility] Comment on above: Performed By: #### I NSULIN #### [facility] [address] [address] [address] Ekta Funk CO2 [Moles/Vol] 26.4 mmol/L Normal 21.0-32.0 [facility] Comment on above: Performed By: #### I NSULIN #### [facility] [address] [address] [address] Ekta Funk Creatinine [Mass/Vol] 2.20 mg/dL Critically high 0.55-1.02 [facility] Comment on above: Performed By: #### I NSULIN #### [facility] [address] [address] [address] Ekta Funk EGFR-AF BRAZILIAN 26 mL/min/1.73m2 Critically low >=60 [facility] Comment on above: Performed By: #### I NSULIN #### [facility] [address] [address] [address] Ekta Funk EGFR-NON AF BRAZILIAN 22 mL/min/1.73m2 Critically low >=60 [facility] Comment on above: Performed By: #### I NSULIN #### [facility] [address] [address] [address] Ekta Funk Globulin (S) [Mass/Vol] 3.8 g/dL Normal [facility] Comment on above: Performed By: #### I NSULIN #### [facility] [address] [address] [address] Ekta Funk Glucose [Mass/Vol] 142 mg/dL Critically high 74-106 [facility] Comment on above: Performed By: #### I NSULIN #### [facility] [address] [address] [address] Ekta Funk Potassium [Moles/Vol] 4.5 mmol/L Normal 3.5-5.1 [facility] Comment on above: Performed By: #### I NSULIN #### [facility] [address] [address] [address] Ekta Funk Protein [Mass/Vol] 7.0 g/dL Normal 6.4-8.2 [facility] Comment on above: Performed By: #### I NSULIN #### [facility] [address] [address] [address] Ekta Funk Sodium [Moles/Vol] 139 mmol/L Normal 136-145 [facility] Comment on above: Performed By: #### I NSULIN #### [facility] [address] [address] [address] Ekta Funk Urea nitrogen [Mass/Vol] 57.0 mg/dL Critically high 7.0-18.0 [facility] Comment on above: Performed By: #### I NSULIN #### [facility] [address] [address] [address] Ekta Funk Urea nitrogen/Creatinine [Mass ratio] 25.9 mg/mg Normal [facility] Comment on above: Performed By: #### I NSULIN #### [facility] [address] [address] [address] Ekta Funk T3, TOTAL (TRIIODOTHYRONINE) on 10-21-2022 T3, TOTAL 63 ng/dL Critically low 71-180 [facility] Comment on above: Performed By: #### C MP #### [facility] [address] [address] [address] Ekta Funk XR ABD FLAT_UPon 10-21-2022 [...] by: DANIEL MARIE Date: 2022-10-21 11:42 Normal [facility] XR CHEST 2 Von 10-21-2022 [...] by: CHRISTIANO MORALES Date: 2022-10-21 11:23 Normal [facility] BNPon 10-20-2022 Natriuretic peptide B (Bld) [Mass/Vol] 2512.0 pg/mL Critically high <=900.0 [facility] Comment on above: Performed By: #### B 12FOL, VITAD, IRON #### [facility] [address] [address] [address] Ekta Funk CARDIAC BRITTANIE ADMITon 023 CK [Catalytic activity/Vol] 35 U/L Normal 26-192 [facility] Comment on above: Performed By: #### B 12FOL, VITAD, IRON #### [facility] [address] [address] [address] Ekta Funk CK.MB [Mass/Vol] 0.64 ng/mL Normal <=3.60 [facility] Comment on above: Performed By: #### B 12FOL, VITAD, IRON #### [facility] [address] [address] [address] Ekta Funk HSTROP 28.1 pg/mL Normal 4.0-51.3 [facility] Comment on above: Result Comment: CUT- OFF POINTS HAVE BEEN ESTABLISHED BASED ON THE FOURTH UNIVERSAL DEFINITIONS OF MYOCARDIAL INFARCTION. THE UPPER REFERENCE LIMIT (URL) OF TROPONIN, DEFINED THE 99TH PERCENTILE OF cTnI DISTRIBUTION IN A REFERENCE POPULATION, HAS BEEN CONFIRMED THE DECISION THRESHOLD FOR OK DIAGNOSIS. Performed By: #### B 12FOL, VITAD, IRON #### [facility] [address] [place] [address] Dr. Ekta Funk EVELYN 57 ng/mL Normal 9-82 [facility] Comment on above: Performed By: #### B 12FOL, VITAD, IRON #### [facility] [address] [address] [address] Ekta Funk CBC AUTO DIFFon 10-20-2022 BASO # 0.0 103/ul Normal 0.0-0.1 [facility] Comment on above: Performed By: #### C BC #### [facility] [address] [place] [address] Dr. Ekta Funk Basophils/100 WBC (Bld) 0.2 % Normal 0.2-2.0 [facility] Comment on above: Performed By: #### C BC #### [facility] [address] [place] [address] Dr. Ekta Funk EO # 0.2 103/ul Normal 0.0-0.7 [facility] Comment on above: Performed By: #### C BC #### [facility] [address] [address] [address] Ekta Funk Eosinophils/100 WBC (Bld) 1.4 % Normal 0.9-7.0 [facility] Comment on above: Performed By: #### C BC #### [facility] [address] [place] [address] Dr. Ekta Funk Erythrocyte distribution width (RBC) [Ratio] 12.9 % Normal 11.0-15.0 [facility] Comment on above: Performed By: #### C BC #### [facility] [address] [place] [address] Dr. Ekta Funk Hematocrit (Bld) [Volume fraction] 34.7 % Critically low 36.0-48.0 [facility] Comment on above: Performed By: #### C BC #### [facility] [address] [place] [address] Dr. Ekta Funk Hemoglobin (Bld) [Mass/Vol] 11.8 g/dL Critically low 12.0-16.0 [facility] Comment on above: Performed By: #### C BC #### [facility] [address] [place] [address] Dr. Ekta Funk IG # 0.09 10e3/ul Critically high 0.00-0.03 [facility] Comment on above: Performed By: #### C BC #### [facility] [address] [place] [address] Dr. Ekta Funk IG % 0.8 % Critically high 0.0-0.5 [facility] Comment on above: Performed By: #### C BC #### [facility] [address] [place] [address] Dr. Ekta Funk LYMPH # 1.9 103/ul Normal 1.2-3.8 [facility] Comment on above: Performed By: #### C BC #### [facility] [address] [place] [address] Dr. Ekta Funk Lymphocytes/100 WBC (Bld) 16.1 % Critically low 20.5-60.0 [facility] Comment on above: Performed By: #### C BC #### [facility] [address] [place] [address] Dr. Ekta Funk MANUAL DIFF REQ NO Normal [facility] Comment on above: Performed By: #### C BC #### [facility] [address] [place] [address] Dr. Ekta Funk MCH (RBC) [Entitic mass] 32.6 pg Normal 26.7-34.0 [facility] Comment on above: Performed By: #### C BC #### [facility] [address] [place] [address] Dr. Ekta Funk MCHC (RBC) [Mass/Vol] 34.0 g/dL Normal 29.9-35.2 [facility] Comment on above: Performed By: #### C BC #### [facility] [address] [place] [address] Dr. Ekta Funk MCV (RBC) [Entitic vol] 95.9 fL Normal 81.0-99.0 [facility] Comment on above: Performed By: #### C BC #### [facility] [address] [place] [address] Dr. Ekta Funk MONO # 0.8 103/ul Normal 0.3-0.8 [facility] Comment on above: Performed By: #### C BC #### [facility] [address] [place] [address] Dr. Ekta Funk Monocytes/100 WBC (Bld) 7.0 % Normal 1.7-12.0 [facility] Comment on above: Performed By: #### C BC #### [facility] [address] [place] [address] Dr. Ekta Funk NEUT # 8.8 103/ul Critically high 1.4-6.5 [facility] Comment on above: Performed By: #### C BC #### [facility] [address] [place] [address] Dr. Ekta Funk Neutrophils/100 WBC (Bld) 74.5 % Normal 43.0-75.0 [facility] Comment on above: Performed By: #### C BC #### [facility] [address] [address] [address] Ekta Funk Platelet mean volume (Bld) [Entitic vol] 9.8 fL Normal 9.5-13.5 [facility] Comment on above: Performed By: #### C BC #### [facility] [address] [address] [address] Ekta Fukn PLT 203 103/ul Normal 150-450 [facility] Comment on above: Performed By: #### C BC #### [facility] [address] [address] [address] Ekta Funk RBC 3.62 106/ul Critically low 4.20-5.40 [facility] Comment on above: Performed By: #### C BC #### [facility] [address] [place] [address] Dr. Ekta Funk WBC 11.8 103/ul Critically high 4.0-11.0 [facility] Comment on above: Performed By: #### C BC #### [facility] [address] [address] [address] Ekta Funk CULTURE URINEon 10-20-2022 CULTURE URINE Culture Observations : NO GROWTH. Normal [facility] Comment on above: Performed By: #### I NSULIN #### [facility] [address] [place] [address] Dr. Ekta Funk Covid-19 PCR (CVDTB)on 10-11 SARS-CoV-2 (COVID-19) RNA GANESH+probe Ql (Unsp spec) Not detected Normal NOT DETECTED [facility] Comment on above: Result Comment: When [...] for this test is supported by the [place] of Health and Human Service's declaration that [...] By: #### B 12FOL, VITAD, IRON #### [facility] [address] [place], [place] [address] Dr. Ekta Funk ECHOCARDIO M/2D COMPLETEon 0 10-20-2022 ECHOCARDIO M/2D COMPLETE Patient: SHEILA MAC Exam Date: 10/20/2022 : 1950 Gender:F Ordering : DR KRZYSZTOF HARP . Admission #: [id number] Family : Order #: [id number] CLICK HERE TO VIEW EXAM ECHOCARDIOGRAM REPORT [...] M.D. on 10/20/2022 at 14:57 Normal [facility] PROF 14(COMP METB)on 023 Albumin [Mass/Vol] 2.8 g/dL Critically low 3.4-5.0 [facility] Comment on above: Performed By: #### B 12FOL, VITAD, IRON #### [facility] [address] [place] [address] Dr. Ekta Funk Albumin/Globulin [Mass ratio] 0.7 {ratio} Normal [facility] Comment on above: Performed By: #### B 12FOL, VITAD, IRON #### [facility] [address] [place] [address] Dr. Ekta Funk ALP [Catalytic activity/Vol] 84 U/L Normal 46-116 [facility] Comment on above: Performed By: #### B 12FOL, VITAD, IRON #### [facility] [address] [place] [address] Dr. Ekta Funk ALT [Catalytic activity/Vol] 29 U/L Normal 14-59 [facility] Comment on above: Performed By: #### B 12FOL, VITAD, IRON #### [facility] [address] [place] [address] Dr. Ekta Funk Anion gap [Moles/Vol] 15.9 mmol/L Normal [facility] Comment on above: Performed By: #### B 12FOL, VITAD, IRON #### [facility] [address] [place] [address] Dr. Ekta Funk AST [Catalytic activity/Vol] 15 U/L Normal 15-37 [facility] Comment on above: Performed By: #### B 12FOL, VITAD, IRON #### [facility] [address] [place] [address] Dr. Ekta Funk Bilirubin [Mass/Vol] 0.3 mg/dL Normal 0.2-1.0 [facility] Comment on above: Performed By: #### B 12FOL, VITAD, IRON #### [facility] [address] [place] [address] Dr. Ekta Funk Calcium [Mass/Vol] 8.9 mg/dL Normal 8.5-10.1 [facility] Comment on above: Performed By: #### B 12FOL, VITAD, IRON #### [facility] [address] [address] [address] Ekta Funk Chloride [Moles/Vol] 103 mmol/L Normal 98-107 [facility] Comment on above: Performed By: #### B 12FOL, VITAD, IRON #### [facility] [address] [place] [address] Dr. Ekta Funk CO2 [Moles/Vol] 26.3 mmol/L Normal 21.0-32.0 [facility] Comment on above: Performed By: #### B 12FOL, VITAD, IRON #### [facility] [address] [place] [address] Dr. Ekta Funk Creatinine [Mass/Vol] 1.99 mg/dL Critically high 0.55-1.02 [facility] Comment on above: Performed By: #### B 12FOL, VITAD, IRON #### [facility] [address] [place] [address] Dr. Ekta Funk EGFR-AF BRAZILIAN 30 mL/min/1.73m2 Critically low >=60 [facility] Comment on above: Performed By: #### B 12FOL, VITAD, IRON #### [facility] [address] [place] [address] Dr. Ekta Funk EGFR-NON AF BRAZILIAN 24 mL/min/1.73m2 Critically low >=60 [facility] Comment on above: Performed By: #### B 12FOL, VITAD, IRON #### [facility] [address] [place] [address] Dr. Ekta Funk Globulin (S) [Mass/Vol] 4.1 g/dL Normal [facility] Comment on above: Performed By: #### B 12FOL, VITAD, IRON #### [facility] [address] [place] [address] Dr. Ekta Funk Glucose [Mass/Vol] 115 mg/dL Critically high 74-106 T [facility] Comment on above: Performed By: #### B 12FOL, VITAD, IRON #### [facility] [address] [place] [address] Dr. Ekta Funk Potassium [Moles/Vol] 5.2 mmol/L Critically high 3.5-5.1 [facility] Comment on above: Performed By: #### B 12FOL, VITAD, IRON #### [facility] [address] [place] [address] Dr. Ekta Funk Protein [Mass/Vol] 6.9 g/dL Normal 6.4-8.2 [facility] Comment on above: Performed By: #### B 12FOL, VITAD, IRON #### [facility] [address] [place] [address] Dr. Ekta Funk Sodium [Moles/Vol] 140 mmol/L Normal 136-145 [facility] Comment on above: Performed By: #### B 12FOL, VITAD, IRON #### [facility] [address] [place] [address] Dr. Ekta Funk Urea nitrogen [Mass/Vol] 45.0 mg/dL Critically high 7.0-18.0 [facility] Comment on above: Performed By: #### B 12FOL, VITAD, IRON #### [facility] [address] [place] [address] Dr. Ekta Funk Urea nitrogen/Creatinine [Mass ratio] 22.6 mg/mg Normal [facility] Comment on above: Performed By: #### B 12FOL, VITAD, IRON #### [facility] [address] [place] [address] Dr. Ekta Funk T4on 10-20-2022 T4 [Mass/Vol] 6.10 ug/dL Normal 4.80-13.90 [facility] Comment on above: Performed By: #### B 12FOL, VITAD, IRON #### [facility] [address] [place] [address] Dr. Ekta Funk TSHon 10-20-2022 TSH 1.336 uIU/mL Normal 0.358-3.740 [facility] Comment on above: Performed By: #### B 12FOL, VITAD, IRON #### [facility] [address] [place] [address] Dr. Ekta Funk UA RANDOM W/MICROSCOPICon BACTERIA TRACE Abnormal NONE SEEN [facility] Comment on above: Performed By: #### B 12FOL, VITAD, IRON #### [facility] [address] [place] [address] Dr. Ekta Funk Bilirubin Ql (U) Negative Normal NEGATIVE [facility] Comment on above: Performed By: #### B 12FOL, VITAD, IRON #### [facility] [address] [place] [address] Dr. Ekta Funk CAST NONE SEEN Normal NONE SEEN [facility] Comment on above: Performed By: #### B 12FOL, VITAD, IRON #### [facility] [address] [place] [address] Dr. Ekta Funk Clarity (U) CLEAR Normal CLEAR [facility] Comment on above: Performed By: #### B 12FOL, VITAD, IRON #### [facility] [address] [place] [address] Dr. Ekta Funk Color (U) LT. YELLOW Normal YELLOW [facility] Comment on above: Performed By: #### B 12FOL, VITAD, IRON #### [facility] [address] [place] [address] Dr. Ekta Funk Crystals LM Nom (Urine sed) NONE SEEN Normal NONE SEEN [facility] Comment on above: Performed By: #### B 12FOL, VITAD, IRON #### [facility] [address] [place] [address] Dr. Ekta Funk Epithelial cells LM Ql (Urine sed) RARE Normal NONE SEEN /RARE [facility] Comment on above: Performed By: #### B 12FOL, VITAD, IRON #### [facility] [address] [place] [address] Dr. Ekta Funk Glucose Ql (U) Negative Normal NEGATIVE [facility] Comment on above: Performed By: #### B 12FOL, VITAD, IRON #### [facility] [address] [place] [address] Dr. Ekta Funk Hemoglobin Ql (U) Negative Normal NEGATIVE [facility] Comment on above: Performed By: #### B 12FOL, VITAD, IRON #### [facility] [address] [place] [address] Dr. Ekta Funk Ketones Ql (U) Negative Normal NEGATIVE [facility] Comment on above: Performed By: #### B 12FOL, VITAD, IRON #### [facility] [address] [address] [address] Ekta Funk LEUKOCYTES Negative Normal NEGATIVE [facility] Comment on above: Performed By: #### B 12FOL, VITAD, IRON #### [facility] [address] [place] [address] Dr. Ekta Funk MUCOUS NONE SEEN Normal NONE SEEN [facility] Comment on above: Performed By: #### B 12FOL, VITAD, IRON #### [facility] [address] [place] [address] Dr. Ekta Funk Nitrite Ql (U) Negative Normal NEGATIVE [facility] Comment on above: Performed By: #### B 12FOL, VITAD, IRON #### [facility] [address] [place] [address] Dr. Ekta Funk pH (U) 6.0 [pH] Normal 5-9 [facility] Comment on above: Performed By: #### B 12FOL, VITAD, IRON #### [facility] [address] [place] [address] Dr. Ekta Funk RBC 0-2 Normal 0-2 [facility] Comment on above: Performed By: #### B 12FOL, VITAD, IRON #### [facility] [address] [place] [address] Dr. Ekta Funk SPEC GRAVITY <=1.005 Abnormal 1.005-<=1.025 [facility] Comment on above: Performed By: #### B 12FOL, VITAD, IRON #### [facility] [address] [place] [address] Dr. Ekta Funk UA PROTEIN Negative Normal NEGATIVE/ TRACE [facility] Comment on above: Performed By: #### B 12FOL, VITAD, IRON #### [facility] [address] [place] [address] Dr. Ekta Funk Urobilinogen Qn (U) 0.2 {Ivan'U}/dL Normal 0.2 - 1. 0 [facility] Comment on above: Performed By: #### B 12FOL, VITAD, IRON #### [facility] [address] [place] [address] Dr. Ekta Funk WBC NONE SEEN Normal NONE SEEN [facility] Comment on above: Performed By: #### B 12FOL, VITAD, IRON #### [facility] [address] [place] [address] Dr. Ekta Funk BNPon 10-19-2022 Natriuretic peptide B (Bld) [Mass/Vol] 1355.0 pg/mL Critically high <=900.0 [facility] Comment on above: Performed By: #### B 12FOL, VITAD, IRON #### [facility] [address] [place] [address] Dr. Ekta Funk INSULINon 10-19-2022 Insulin 12.4 uIU/mL Normal 2.6-24.9 [facility] Comment on above: Performed By: #### I NSULIN #### [facility] [address] [place] [address] Dr. Ekta Funk OCC BLD IMMUNO SCREENon OCCULT BLOOD Positive Abnormal NEGATIVE [facility] Comment on above: Performed By: #### B 12FOL, VITAD, IRON #### [facility] [address] [place] [address] Dr. Ekta Funk PROF CHEM 8 (BAS METB)on Anion gap [Moles/Vol] 15.8 mmol/L Normal [facility] Comment on above: Performed By: #### B 12FOL, VITAD, IRON #### [facility] [address] [place] [address] Dr. Ekta Funk Calcium [Mass/Vol] 8.8 mg/dL Normal 8.5-10.1 [facility] Comment on above: Performed By: #### B 12FOL, VITAD, IRON #### [facility] [address] [place], [place] [id number] Dr. Ekta Funk Chloride [Moles/Vol] 107 mmol/L Normal 98-107 [facility] Comment on above: Performed By: #### B 12FOL, VITAD, IRON #### [facility] [address] [place] [address] Dr. Ekta Funk CO2 [Moles/Vol] 21.5 mmol/L Normal 21.0-32.0 [facility] Comment on above: Performed By: #### B 12FOL, VITAD, IRON #### [facility] [address] [place] [address] Dr. Ekta Funk Creatinine [Mass/Vol] 1.62 mg/dL Critically high 0.55-1.02 [facility] Comment on above: Performed By: #### B 12FOL, VITAD, IRON #### [facility] [address] [place] [address] Dr. Ekta Funk EGFR-AF BRAZILIAN 38 mL/min/1.73m2 Critically low >=60 [facility] Comment on above: Performed By: #### B 12FOL, VITAD, IRON #### [facility] [address] [place] [address] Dr. Ekta Funk EGFR-NON AF BRAZILIAN 31 mL/min/1.73m2 Critically low >=60 [facility] Comment on above: Performed By: #### B 12FOL, VITAD, IRON #### [facility] [address] [place] [address] Dr. Ekta Funk Glucose [Mass/Vol] 134 mg/dL Critically high 74-106 [facility] Comment on above: Performed By: #### B 12FOL, VITAD, IRON #### [facility] [address] [place] [address] Dr. Ekta Funk Potassium [Moles/Vol] 5.3 mmol/L Critically high 3.5-5.1 [facility] Comment on above: Performed By: #### B 12FOL, VITAD, IRON #### [facility] [address] [place] [address] Dr. Ekta Funk Sodium [Moles/Vol] 139 mmol/L Normal 136-145 [facility] Comment on above: Performed By: #### B 12FOLCAROLYN, IRON #### [facility] [address] [place] [address] Dr. Ekta Funk Urea nitrogen [Mass/Vol] 37.0 mg/dL Critically high 7.0-18.0 [facility] Comment on above: Performed By: #### Bob FelixFOLNENOAD, IRON #### [facility] [address] [place] [address] Dr. Ekta Funk Urea nitrogen/Creatinine [Mass ratio] 22.8 mg/mg Normal [facility] Comment on above: Performed By: #### CAROLYN ARTHUR, IRON #### [facility] [address] [place] [address] Dr. Ekta Funk TROPONIN, HIGH SENSITIVITYon 10-19-2022 HSTROP 53.2 pg/mL Critically high 4.0-51.3 [facility] Comment on above: Result Comment: CUT- OFF POINTS HAVE BEEN ESTABLISHED BASED ON THE FOURTH UNIVERSAL DEFINITIONS OF MYOCARDIAL INFARCTION. THE UPPER REFERENCE LIMIT (URL) OF TROPONIN, DEFINED THE 99TH PERCENTILE OF cTnI DISTRIBUTION IN A REFERENCE POPULATION, HAS BEEN CONFIRMED THE DECISION THRESHOLD FOR OK DIAGNOSIS. Performed By: #### CAROLYN ARTHUR, IRON #### [facility] [address] [place] [address] Dr. Ekta Funk BNPon 10-18-2022 Natriuretic peptide B (Bld) [Mass/Vol] 1386.0 pg/mL Critically high <=900.0 [facility] Comment on above: Performed By: #### C VDTBH #### [facility] [address] [place] [address] Dr. Ekta Funk CARDIAC BRITTANIE ADMITon 023 CK [Catalytic activity/Vol] 34 U/L Normal 26-192 [facility] Comment on above: Performed By: #### C VDTBH #### [facility] [address] [place] [address] Dr. Ekta Funk CK.MB [Mass/Vol] 1.43 ng/mL Normal <=3.60 [facility] Comment on above: Performed By: #### C VDTBH #### [facility] [address] [place] [address] Dr. Ekta Funk HSTROP 74.1 pg/mL Critically high 4.0-51.3 [facility] Comment on above: Result Comment: CUT- OFF POINTS HAVE BEEN ESTABLISHED BASED ON THE FOURTH UNIVERSAL DEFINITIONS OF MYOCARDIAL INFARCTION. THE UPPER REFERENCE LIMIT (URL) OF TROPONIN, DEFINED THE 99TH PERCENTILE OF cTnI DISTRIBUTION IN A REFERENCE POPULATION, HAS BEEN CONFIRMED THE DECISION THRESHOLD FOR OK DIAGNOSIS. Performed By: #### C VDTBH #### [facility] [address] [place] [address] Dr. Ekta Funk EVELYN 52 ng/mL Normal 9-82 [facility] Comment on above: Performed By: #### C VDTBH #### [facility] [address] [place] [address] Dr. Ekta Funk CBC AUTO DIFFon 10-18-2022 BASO # 0.0 103/ul Normal 0.0-0.1 [facility] Comment on above: Performed By: #### C BC #### [facility] [address] [place] [address] Dr. Ekta Funk Basophils/100 WBC (Bld) 0.3 % Normal 0.2-2.0 [facility] Comment on above: Performed By: #### C BC #### [facility] [address] [place] [address] Dr. Ekta Funk EO # 0.1 103/ul Normal 0.0-0.7 [facility] Comment on above: Performed By: #### C BC #### [facility] [address] [place] [address] Dr. Ekta Funk Eosinophils/100 WBC (Bld) 0.9 % Normal 0.9-7.0 [facility] Comment on above: Performed By: #### C BC #### [facility] [address] [place] [address] Dr. Ekta Funk Erythrocyte distribution width (RBC) [Ratio] 13.2 % Normal 11.0-15.0 [facility] Comment on above: Performed By: #### C BC #### [facility] [address] [address] [address] Ekta Funk Hematocrit (Bld) [Volume fraction] 38.9 % Normal 36.0-48.0 [facility] Comment on above: Performed By: #### C BC #### [facility] [address] [address] [address] Ekta Funk Hemoglobin (Bld) [Mass/Vol] 12.4 g/dL Normal 12.0-16.0 [facility] Comment on above: Performed By: #### C BC #### [facility] [address] [place] [address] Dr. Ekta Funk IG # 0.08 10e3/ul Critically high 0.00-0.03 [facility] Comment on above: Performed By: #### C BC #### [facility] [address] [place] [address] Dr. Ekta Funk IG % 0.5 % Normal 0.0-0.5 [facility] Comment on above: Performed By: #### C BC #### [facility] [address] [address] [address] Ekta Funk LYMPH # 1.4 103/ul Normal 1.2-3.8 [facility] Comment on above: Performed By: #### C BC #### [facility] [address] [place] [address] Dr. Ekta Funk Lymphocytes/100 WBC (Bld) 9.6 % Critically low 20.5-60.0 [facility] Comment on above: Performed By: #### C BC #### [facility] [address] [place] [address] Dr. Ekta Funk MANUAL DIFF REQ NO Normal [facility] Comment on above: Performed By: #### C BC #### [facility] [address] [place] [address] Dr. Ekta Funk MCH (RBC) [Entitic mass] 32.3 pg Normal 26.7-34.0 [facility] Comment on above: Performed By: #### C BC #### [facility] [address] [address] [address] Ekta Funk MCHC (RBC) [Mass/Vol] 31.9 g/dL Normal 29.9-35.2 [facility] Comment on above: Performed By: #### C BC #### [facility] [address] [address] [address] Ekta Funk MCV (RBC) [Entitic vol] 101.3 fL Critically high 81.0-99.0 [facility] Comment on above: Performed By: #### C BC #### [facility] [address] [address] [address] Ekta Funk MONO # 0.9 103/ul Critically high 0.3-0.8 [facility] Comment on above: Performed By: #### C BC #### [facility] [address] [place] [address] Dr. Ekta Funk Monocytes/100 WBC (Bld) 6.3 % Normal 1.7-12.0 [facility] Comment on above: Performed By: #### C BC #### [facility] [address] [address] [address] Ekta Funk NEUT # 12.0 103/ul Critically high 1.4-6.5 [facility] Comment on above: Performed By: #### C BC #### [facility] [address] [place] [address] Dr. Ekta Funk Neutrophils/100 WBC (Bld) 82.4 % Critically high 43.0-75.0 [facility] Comment on above: Performed By: #### C BC #### [facility] [address] [address] [address] Ekta Funk Platelet mean volume (Bld) [Entitic vol] 9.7 fL Normal 9.5-13.5 [facility] Comment on above: Performed By: #### C BC #### [facility] [address] [address] [address] Ekta Funk PLT 176 103/ul Normal 150-450 [facility] Comment on above: Performed By: #### C BC #### [facility] [address] [address] [address] Ekta Funk RBC 3.84 106/ul Critically low 4.20-5.40 [facility] Comment on above: Performed By: #### C BC #### [facility] [address] [address] [address] Ekta Funk WBC 14.6 103/ul Critically high 4.0-11.0 [facility] Comment on above: Performed By: #### C BC #### [facility] [address] [address] [address] Ekta Funk FREE THYROXINE INDEX T7on FTI 2.34 Normal 1.30-4.50 [facility] Comment on above: Performed By: #### C VDTBH #### [facility] [address] [place] [address] Dr. Ekta Funk T3U 36.0 % Normal 30.0-39.0 [facility] Comment on above: Performed By: #### C VDTBH #### [facility] [address] [place] [address] Dr. Ekta Funk T4 [Mass/Vol] 6.50 ug/dL Normal 4.80-13.90 [facility] Comment on above: Performed By: #### C VDTBH #### [facility] [address] [place] [address] Dr. Ekta Funk GLYCOHEMOGLOBIN A1Con 2022 ADA RECOMMENDATION SEE BELOW Normal [facility] Comment on above: Result Comment: ADA RECOMMENDED LIMIT 4.0 - 6.0 ADA THERAPEUTIC TARGET < 7.0 ACTION SUGGESTED > 7.0 Performed By: #### B 12FOL, VITAD, IRON #### [facility] [address] [place] [address] Dr. Ekta Funk Glucose [Mass/Vol] 140 mg/dL Normal [facility] Comment on above: Performed By: #### B 12FOL, VITAD, IRON #### [facility] [address] [place] [address] Dr. Ekta Funk HbA1c (Bld) [Mass fraction] 6.5 % Critically high 4.5-6.2 [facility] Comment on above: Performed By: #### B 12FOL VITAD, IRON #### [facility] [address] [id number] Ekta Funk IRONon 10-18-2022 Iron [Mass/Vol] 62.0 ug/dL Normal 50.0-170.0 [facility] Comment on above: Performed By: #### B 12FOL VITAD, IRON #### [facility] [address] [id number] Ekta Funk LIPID PROFILEon 10-18-2022 CHOL-HDL RATIO NORM SEE BELOW Normal [facility] Comment on above: Result Comment: 3.3 - 4.4 LOW RISK 4.4 - 7.1 AVERAGE RISK 7.1 - 11.0 MODERATE RISK >11.0 HIGH RISK Performed By: #### C VDTBH #### [facility] [address] [address] [address] Ekta Funk Cholesterol [Mass/Vol] 242 mg/dL Critically high <=200 [facility] Comment on above: Performed By: #### C VDTBH #### [facility] [address] [address] [address] Ekta Funk Cholesterol in HDL [Mass/Vol] 74 mg/dL Critically high 40-60 [facility] Comment on above: Performed By: #### C VDTBH #### [facility] [address] [address] [address] Ekta Funk Cholesterol in LDL [Mass/Vol] 139.4 mg/dL Normal [facility] Comment on above: Performed By: #### C VDTBH #### [facility] [address] [address] [address] Ekta Funk Cholesterol.total/Ch olesterol in HDL [Mass ratio] 3.3 {ratio} Normal [facility] Comment on above: Performed By: #### C VDTBH #### [facility] [address] [address] [address] Ekta Funk HDL NORMAL > or = 60 mg/dl - LO W CARDIOVASCULAR RISK <40 mg/dl - HIGH CARDIOVASCULAR RISK Normal [facility] Comment on above: Performed By: #### C VDTBH #### [facility] [address] [place] [address] Dr. Ekta Funk LDL CALC NORMAL SEE BELOW Normal [facility] Comment on above: Result Comment: <100 mg/dl OPTIMAL 100 - 129 mg/dl NEAR OR ABOVE OPTIMAL 130 - 159 mg/dl BORDERLINE HIGH 160 - 189 mg/dl HIGH >190 mg/dl VERY HIGH Performed By: #### C VDTBH #### [facility] [address] [address] [address] Ekta Funk Triglyceride [Mass/Vol] 143 mg/dL Normal <=150 [facility] Comment on above: Performed By: #### C VDTBH #### [facility] [address] [place] [address] Dr. Ekta Funk VLDL CALC 28.6 mg/dL Normal [facility] Comment on above: Performed By: #### C VDTBH #### [facility] [address] [place] [address] Dr. Ekta Funk PROF 14(COMP METB)on 023 Albumin [Mass/Vol] 2.8 g/dL Critically low 3.4-5.0 [facility] Comment on above: Performed By: #### C VDTBH #### [facility] [address] [place] [address] Dr. Ekta Funk Albumin/Globulin [Mass ratio] 0.7 {ratio} Normal [facility] Comment on above: Performed By: #### C VDTBH #### [facility] [address] [place] [address] Dr. Ekta Funk ALP [Catalytic activity/Vol] 90 U/L Normal 46-116 [facility] Comment on above: Performed By: #### C VDTBH #### [facility] [address] [place] [address] Dr. Ekta Funk ALT [Catalytic activity/Vol] 26 U/L Normal 14-59 [facility] Comment on above: Performed By: #### C VDTBH #### [facility] [address] [address] [address] Ekta Funk Anion gap [Moles/Vol] 14.5 mmol/L Normal [facility] Comment on above: Performed By: #### C VDTBH #### [facility] [address] [address] [address] Ekta Funk AST [Catalytic activity/Vol] 14 U/L Critically low 15-37 [facility] Comment on above: Performed By: #### C VDTBH #### [facility] [address] [address] [address] Ekta Funk Bilirubin [Mass/Vol] 0.4 mg/dL Normal 0.2-1.0 [facility] Comment on above: Performed By: #### C VDTBH #### [facility] [address] [place] [address] Dr. Ekta Funk Calcium [Mass/Vol] 8.9 mg/dL Normal 8.5-10.1 [facility] Comment on above: Performed By: #### C VDTBH #### [facility] [address] [address] [address] kEta Funk Chloride [Moles/Vol] 106 mmol/L Normal 98-107 [facility] Comment on above: Performed By: #### C VDTBH #### [facility] [address] [place] [address] Dr. Ekta Funk CO2 [Moles/Vol] 23.5 mmol/L Normal 21.0-32.0 [facility] Comment on above: Performed By: #### C VDTBH #### [facility] [address] [address] [address] Ekta Funk Creatinine [Mass/Vol] 1.70 mg/dL Critically high 0.55-1.02 [facility] Comment on above: Performed By: #### C VDTBH #### [facility] [address] [address] [address] Ekta Funk EGFR-AF BRAZILIAN 36 mL/min/1.73m2 Critically low >=60 [facility] Comment on above: Performed By: #### C VDTBH #### [facility] [address] [address] [address] Ekta Funk EGFR-NON AF BRAZILIAN 29 mL/min/1.73m2 Critically low >=60 [facility] Comment on above: Performed By: #### C VDTBH #### [facility] [address] [address] [address] Ekta Funk Globulin (S) [Mass/Vol] 4.0 g/dL Normal [facility] Comment on above: Performed By: #### C VDTBH #### [facility] [address] [address] [address] Ekta Funk Glucose [Mass/Vol] 99 mg/dL Normal 74-106 [facility] Comment on above: Performed By: #### C VDTBH #### [facility] [address] [address] [address] Ekta Funk Potassium [Moles/Vol] 5.0 mmol/L Normal 3.5-5.1 [facility] [facility] Comment on above: Performed By: #### C VDTBH #### [facility] [address] [address] [address] Ekta Funk Protein [Mass/Vol] 6.8 g/dL Normal 6.4-8.2 The [facility] Comment on above: Performed By: #### C VDTBH #### [facility] [address] [address] [address] Ekta Funk Sodium [Moles/Vol] 139 mmol/L Normal 136-145 The [facility] Comment on above: Performed By: #### C VDTBH #### [facility] [address] [address] [address] Ekta Funk Urea nitrogen [Mass/Vol] 36.0 mg/dL Critically high 7.0-18.0 [facility] Comment on above: Performed By: #### C VDTBH #### [facility] [address] [address] [address] Ekta Funk Urea nitrogen/Creatinine [Mass ratio] 21.2 mg/mg Normal [facility] Comment on above: Performed By: #### C VDTBH #### [facility] [address] [address] [address] Ekta Funk TSHon 10-18-2022 TSH 0.910 uIU/mL Normal 0.358-3.740 The [facility] Comment on above: Performed By: #### C VDTBH #### [facility] [address] [address] [address] Ekta Funk Covid-19 PCR ([facility])on 09-10 SARS-CoV-2 (COVID-19) RNA GANESH+probe Ql (Unsp spec) Detected Abnormal NOT DETECTED [facility] Comment on above: Result Comment: This test is not yet approved or cleared by the [place] FDA. When there are no FDA-approved or cleared tests available, and other criteria are met, FDA can make tests available under an emergency access mechanism called an Emergency Use Authorization (EUA). The EUA for this test is supported by the [place] of Health and Human Service's declaration that [...] used). Performed By: #### C MP #### [facility] [address] [place] [address] Dr. Ekta Funk INFLUENZA A AND B AGon 09-[facility] BELOW Normal [facility] Comment on above: Result Comment: Nega tive for Flu A protein angiten. Infection due to Flu A cannot be ruled out. Flu A angiten in the sample may be below the detection limit of the test. Performed By: #### B 12FOL, VITAD, IRON #### [facility] [address] [place], [place] [id number] Dr. Ekta Funk INFLUBNEG SEE BELOW Normal [facility] Comment on above: Result Comment: Nega tive for Flu B protein antigen. Infection due to Flu B cannot be ruled out. Flu B antigen in the sample may be below the detection limit of the test. Performed By: #### B 12FOL, VITAD, IRON #### [facility] [address] [address] [address] Ekta Funk INFLUENZA A AG Negative Normal NEGATIVE SEE COMMENT [facility] Comment on above: Performed By: #### B 12FOL, VITAD, IRON #### [facility] [address] [address] [address] Ekta Funk INFLUENZA B AG Negative Normal NEGATIVE SEE COMMENT [facility] Comment on above: Performed By: #### B 12FOL, VITAD, IRON #### [facility] [address] [address] [address] Ekta Funk CAROTID ART BILon 022 US CAROTID ART [...] by: GODWIN BECK Date: 2022-05-26 16:06 Normal [facility] MRI BRAIN WO CONon 2 [...] by: DANIEL MARIE Date: 2022-05-25 10:45 Normal [facility] ECHOCARDIO M/2D COMPLETEon 0 05-24-2022 ECHOCARDIO M/2D COMPLETE Patient: SHEILA MAC Exam Date: 05/24/2022 : 1950 Gender:F Ordering : DR KRZYSZTOF HARP . Admission #: [id number] Family : Order #: [id number] CLICK HERE TO VIEW EXAM ECHOCARDIOGRAM REPORT [...] M.D. on 05/24/2022 at 14:45 Normal [facility] BASIC METABOLIC PANELon 11-08 Calcium mass conc 9.4 mg/dL Normal 8.6-10.3 The [facility] Comment on above: Order Comment: No: D o not add to previous draw Performed By: #### 0 0071 #### [address] Chloride molar conc 108 mmol/L High 98-107 The [facility] Comment on above: Order Comment: No: D o not add to previous draw Performed By: #### 0 0071 #### [facility] [address] [place] [address], [place] CO2 molar conc 22 mmol/L Normal 21-31 The [facility] Comment on above: Order Comment: No: D o not add to previous draw Performed By: #### 0 0071 #### [facility] [address] [place] [address], [place] Creatinine mass conc 1.18 mg/dL Normal 0.60-1.20 The [facility] Comment on above: Order Comment: No: D o not add to previous draw Performed By: #### 0 0071 #### [facility] [address] [place] [address], [place] GFR/1.73 sq M predicted among blacks MDRD vol rate/area (S/P/Bld) 55 ml/min/1.73sq m Abnormal >60 The [facility] Comment on above: Order Comment: No: D o not add to previous draw Performed By: #### 0 0071 #### [facility] [address] [place] [address], [place] GFR/1.73 sq M predicted among non-blacks MDRD vol rate/area (S/P/Bld) 45 ml/min/1.73sq m Abnormal >60 The [facility] Comment on above: Order Comment: No: D o not add to previous draw Performed By: #### 0 0071 #### [facility] [address] [place] [address], [place] Glucose mass conc 166 mg/dL High 70-100 The [facility] Comment on above: Order Comment: No: D o not add to previous draw Performed By: #### 0 0071 #### [facility] [address] [place] [address], [place] Potassium molar conc 4.1 mmol/L Normal 3.5-5.1 The [facility] Comment on above: Order Comment: No: D o not add to previous draw Performed By: #### 0 0071 #### [facility] [address] [place] [address], [facility] Sodium molar conc 140 mmol/L Normal 136-145 The [facility] Comment on above: Order Comment: No: D o not add to previous draw Performed By: #### 0 0071 #### [facility] [address] [place] [address], [facility] Urea nitrogen mass conc 21 mg/dL Normal 7-25 The [facility] Comment on above: Order Comment: No: D o not add to previous draw Performed By: #### 0 0071 #### [facility] [address] [place] [address], [facility] CBC COMPLETE BLOOD COUNTon 11-20-2018 Erythrocyte distribution width Ratio (RBC) 12.9 % Normal 11.5-15.0 [facility] Comment on above: Order Comment: No: D o not add to previous draw Performed By: #### 5 [id number] #### [facility] [address] [place] [address], [facility] Hematocrit Volume Fraction (Bld) 36.7 % Normal 36.0-45.0 The [facility] Comment on above: Order Comment: No: D o not add to previous draw Performed By: #### 5 0608 #### [facility] [address] [place] [address], [facility] Hemoglobin mass conc (Bld) 12.4 g/dL Normal 12.0-15.0 The [facility] Comment on above: Order Comment: No: D o not add to previous draw Performed By: #### 5 0608 #### [facility] [address] [place] [address], [facility] MCH Entitic mass (RBC) 31.2 pg Normal 27.0-33.0 The [facility] Comment on above: Order Comment: No: D o not add to previous draw Performed By: #### 5 0608 #### [facility] [address] MCHC mass conc (RBC) 33.8 g/dL Normal 32.0-35.0 The [facility] Comment on above: Order Comment: No: D o not add to previous draw Performed By: #### 5 0608 #### [facility] [address] MCV Entitic volume (RBC) 92.4 fL Normal 82.0-98.0 [facility] Comment on above: Order Comment: No: D o not add to previous draw Performed By: #### 5 0608 #### [facility] [address] Nucleated RBC/100 WBC Ratio (Bld) 0 % Normal 0-0 [facility] Comment on above: Order Comment: No: D o not add to previous draw Performed By: #### 5 0608 #### [facility] [address] [facility] [place] [address], [facility] PLAT CNT 227 10*3/uL Normal 150-400 The [facility] Comment on above: Order Comment: No: D o not add to previous draw Performed By: #### 5 0608 #### [facility] [address] RBC #/vol (Bld) 3.97 10*6/uL Normal 3.80-5.00 The [facility] Comment on above: Order Comment: No: D o not add to previous draw Performed By: #### 5 0608 #### [facility] [address] [place] [address], [facility] WBC #/vol (Bld) 5.55 10*3/uL Normal 4.00-10.60 [facility] Comment on above: Order Comment: No: D o not add to previous draw Performed By: #### 5 0608 #### [facility] [address] Cardiovascular Lab Reporton 11-20-2018 Cardiovascular Lab Report [facility] Patient Name: [facility] Rahel Sosa MR #: [id number] Department of Physician: Bong Camden Shellie Gaspar M.D. Division of Service Date: 11/20/2018 Cardiology Birthdate: 1950 Adult Cardiovascular Room #: 3AB [id number] Services [facility] [address] [place], [place] [address] Cardiovascular Laboratory Report INDICATION: The patient is a 68-year-old woman who was evaluated in Cardiology Clinic because of new onset symptoms of shortness of breath on mild exertion. Her stress test showed evidence of hnyyz-ck-jjmmvscz area of inferoapical ischemia; because of that, she was referred for cardiac catheterization. PROCEDURES: 1. Right heart catheterization. 2. Bilateral selective coronary angiography. 3. Limited right femoral angiography. METHOD: Procedure was explained patient with risks and benefits. She signed informed consent. She was brought to label fuser tender in a fasting state. The right groin area was prepped and draped in usual fashion. Using micropuncture technique, the right common femoral artery was accessed. The inner cannula was advanced. Limited femoral angiography was performed followed by upsizing to a 6-Faroese x 11 cm sheath. Access was also obtained using the same technique in the right common femoral vein and a 6-Faroese x 11 cm sheath was placed. A 6-Faroese Michel catheter was used for right heart catheterization with measurement of pressures and calculation of cardiac output using the estimated Ivory method. Michel catheter was removed. Bilateral selective coronary angiography was then performed using 6-Faroese JL4 and JR4 diagnostic catheters. Catheters were [...] A/Bong Gaspar M.D. Date Trans: 11/20/2018 09:31 Blane/alvina [id number] cc: Krzysztof Harp M.D. [address] [id number] Normal The [facility] BASIC METABOLIC PANELon 11-08 Calcium mass conc 9.5 mg/dL Normal 8.6-10.3 The [facility] Comment on above: Order Comment: No: D o not add to previous draw Performed By: #### 0 0071 #### [facility] [address] [place] [address], [facility] Chloride molar conc 105 mmol/L Normal 98-107 The [facility] Comment on above: Order Comment: No: D o not add to previous draw Performed By: #### 0 0071 #### [facility] [address] [place] [address], [place] CO2 molar conc 24 mmol/L Normal 21-31 The [facility] Comment on above: Order Comment: No: D o not add to previous draw Performed By: #### 0 0071 #### [facility] [address] [place] [address], [place] Creatinine mass conc 1.42 mg/dL High 0.60-1.20 [facility] Comment on above: Order Comment: No: D o not add to previous draw Performed By: #### 0 0071 #### [facility] [address] [place] [address], [place] GFR/1.73 sq M predicted among blacks MDRD vol rate/area (S/P/Bld) 45 ml/min/1.73sq m Abnormal >60 The [facility] Comment on above: Order Comment: No: D o not add to previous draw Performed By: #### 0 0071 #### [facility] [address] [place] [address], [place] GFR/1.73 sq M predicted among non-blacks MDRD vol rate/area (S/P/Bld) 36 ml/min/1.73sq m Abnormal >60 The [facility] Comment on above: Order Comment: No: D o not add to previous draw Performed By: #### 0 0071 #### [facility] [address] [place] [address], [place] Glucose mass conc 86 mg/dL Normal 70-100 The [facility] Comment on above: Order Comment: No: D o not add to previous draw Performed By: #### 0 0071 #### [facility] [address] [place] [address], [place] Potassium molar conc 4.2 mmol/L Normal 3.5-5.1 [facility] Comment on above: Order Comment: No: D o not add to previous draw Performed By: #### 0 0071 #### [facility] [address] [place] [address], [facility] Sodium molar conc 138 mmol/L Normal 136-145 [facility] Comment on above: Order Comment: No: D o not add to previous draw Performed By: #### 0 0071 #### [facility] [address] [place] [address], [facility] Urea nitrogen mass conc 19 mg/dL Normal 7-25 The [facility] Comment on above: Order Comment: No: D o not add to previous draw Performed By: #### 0 0071 #### [facility] [address] CBC COMPLETE BLOOD COUNTon 0 - Erythrocyte distribution width Ratio (RBC) 13.0 % Normal 11.5-15.0 [facility] Comment on above: Order Comment: No: D o not add to previous draw Performed By: #### 5 0608 #### [facility] [address] Hematocrit Volume Fraction (Bld) 38.3 % Normal 36.0-45.0 [facility] Comment on above: Order Comment: No: D o not add to previous draw Performed By: #### 5 0608 #### [facility] [address] [place] [place] [address], [facility] Hemoglobin mass conc (Bld) 12.6 g/dL Normal 12.0-15.0 [facility] Comment on above: Order Comment: No: D o not add to previous draw Performed By: #### 5 0608 #### [facility] [address] [place] [address], [facility] MCH Entitic mass (RBC) 31.1 pg Normal 27.0-33.0 [facility] Comment on above: Order Comment: No: D o not add to previous draw Performed By: #### 5 0608 #### [facility] [address] [place] [address], [facility] MCHC mass conc (RBC) 32.9 g/dL Normal 32.0-35.0 [facility] Comment on above: Order Comment: No: D o not add to previous draw Performed By: #### 5 0608 #### [facility] [address] [place] [address], [facility] MCV Entitic volume (RBC) 94.6 fL Normal 82.0-98.0 [facility] Comment on above: Order Comment: No: D o not add to previous draw Performed By: #### 5 0608 #### [facility] [address] Nucleated RBC/100 WBC Ratio (Bld) 0 % Normal 0-0 [facility] Comment on above: Order Comment: No: D o not add to previous draw Performed By: #### 5 0608 #### [facility] [address] [place] [address], [facility] PLAT CNT 266 10*3/uL Normal 150-400 [facility] Comment on above: Order Comment: No: D o not add to previous draw Performed By: #### 5 0608 #### [facility] [address] [facility] [place] [address], [facility] RBC #/vol (Bld) 4.05 10*6/uL Normal 3.80-5.00 [facility] Comment on above: Order Comment: No: D o not add to previous draw Performed By: #### 5 0608 #### [facility] [address] [place] [address], [facility] WBC #/vol (Bld) 9.01 10*3/uL Normal 4.00-10.60 [facility] Comment on above: Order Comment: No: D o not add to previous draw Performed By: #### 5 0608 #### [facility] [address] PROTHROMBIN TIMEon 9 INR Coag RelTime (PPP) 1.07 {INR} Normal 0.91-1.16 [facility] Comment on above: Order Comment: No: [...] 1995;108:231S-246S. Performed By: #### 5 6101 #### [address] Prothrombin time (PT) Coag time (PPP) 13.9 s Normal 12.3-14.8 [facility] Comment on above: Order Comment: No: D o not add to previous draw Result Comment: ALL RESULTS MUST BE INTERPRETED WITH RESPECT TO BLOOD DRAWING ARTIFACT OR DILUTION ERROR OF ANTICOAGULANT AT THE TIME OF SAMPLING. Performed By: #### 5 [id number] #### [address] Vital Signs Date Time Vital Sign Value Performing Clinician Joel mcclellan 07-14-2024 13:28-0500 Body mass index (BMI) [Ratio] 23.52 kg/m2 Raven Sesay DO Work Phone: [facility] 07-14-2024 13:28-0500 Body weight 60.24 kg Christopher Shama DO Work Phone: [facility] 07-14-2024 13:28-0500 Diastolic blood pressure 101 mm[Hg] Christopher Shama DO Work Phone: [facility] 07-14-2024 13:28-0500 Heart rate 87 /min Christopher Shama DO Work Phone: [facility] 07-14-2024 13:28-0500 SaO2% (BldA) [Mass fraction] 91 % Christopher Shama DO Work Phone: [facility] 07-14-2024 13:28-0500 Systolic blood pressure 155 mm[Hg] Christopher Shama DO Work Phone: [facility] 03-26-2024 11:35-0400 Diastolic blood pressure 106 mm[Hg] MD Krzysztof Harp Work Phone: [facility] 03-26-2024 11:35-0400 Heart rate 76 /min MD Krzysztof Harp Work Phone: [facility] 03-26-2024 11:35-0400 Respiratory rate 18 /min MD Krzysztof Harp Work Phone: [facility] 03-26-2024 11:35-0400 SaO2% (BldA) [Mass fraction] 96 % MD Krzysztof Harp Work Phone: [facility] 03-26-2024 11:35-0400 Systolic blood pressure 152 mm[Hg] MD Krzysztof Harp Work Phone: [facility] 03-26-2024 10:24-0400 Body height 157.48 cm MD Krzysztof Harp Work Phone: [facility] 03-26-2024 10:24-0400 Body weight 62.14 kg MD Krzysztof Harp Work Phone: [facility] 02-19-2024 09:07-0400 Body height 157.48 cm MD Krzysztof Harp Work Phone: [facility] 02-19-2024 09:07-0400 Body mass index (BMI) [Ratio] 24.7 kg/m2 MD Krzysztof Harp Work Phone: [facility] 02-19-2024 09:07-0400 Body weight 61.23 kg MD Krzysztof Harp Work Phone: [facility] 02-19-2024 09:07-0400 Diastolic blood pressure 105 mm[Hg] MD Krzysztof Harp Work Phone: [facility] 02-19-2024 09:07-0400 Heart rate 60 /min MD Krzysztof Harp Work Phone: [facility] 02-19-2024 09:07-0400 Systolic blood pressure 146 mm[Hg] MD Krzysztof Harp Work Phone: [facility] 02-05-2024 13:37-0400 Diastolic blood pressure 47 mm[Hg] MD Krzysztof Harp Work Phone: [facility] 02-05-2024 13:37-0400 Heart rate 78 /min MD Krzysztof Harp Work Phone: [facility] 02-05-2024 13:37-0400 Respiratory rate 16 /min MD Krzysztof Harp Work Phone: [facility] 02-05-2024 13:37-0400 SaO2% (BldA) [Mass fraction] 97 % MD Krzysztof Harp Work Phone: [facility] 02-05-2024 13:37-0400 Systolic blood pressure 122 mm[Hg] MD Krzysztof Harp Work Phone: [facility] 02-05-2024 11:35-0400 Body height 157.48 cm MD Krzysztof Harp Work Phone: [facility] 02-05-2024 11:35-0400 Body temperature 99.1 [degF] MD Krzysztof Harp Work Phone: [facility] 02-05-2024 11:35-2030 Body weight 62.14 kg MD Krzysztof Harp Work Phone: [facility] Encounters Encounter Date Encounter Type Care Provider Facility Start: 07-28-2024 End: 07-28-2024 [facility] Start: 07-22-2024 End: 07-22-2024 ambulatory KRZYSZTOF HARP [facility] Start: 07-17-2024 End: 07-17-2024 Bamboo flowsheet Christopher Shama DO Work Phone: [facility] [employer] [address] Start: 07-17-2024 End: 07-17-2024 Bamboo flowsheet Christopher Shama DO Work Phone: [facility] [employer] [address] Start: 07-17-2024 End: 07-17-2024 Patient encounter procedure Raven Sesay DO Work Phone: [facility] [employer] [address] Comment on above: Cervical radiculopat hy (Primary Dx); Paresthesia Start: 07-17-2024 End: 07-17-2024 ambulatory RAVEN SESAY Not Available Start: 07-16-2024 End: 07-16-2024 ambulatory [facility] Start: 07-15-2024 End: 07-15-2024 ambulatory CLEVE SHETH Not Available Start: 07-15-2024 End: 07-15-2024 Office outpatient visit 10 minutes Cleve Sheth DO Work Phone: [facility] Comment on above: Chronic right hip pa in (Primary Dx); Sacral insufficiency fracture with routine healing, subsequent encounter; Closed fracture of multiple pubic rami, right, initial encounter ([facility]) Start: 07-14-2024 End: 07-14-2024 Bamboo flowsheet Christopher Shama DO Work Phone: [facility] [employer] [address] Start: 07-14-2024 End: 07-14-2024 Bamboo flowsheet Christopher Shama DO Work Phone: [facility] [address] Start: 07-14-2024 End: 07-14-2024 Office outpatient new 30 minutes Raven Connorett DO Work Phone: [facility] Comment on above: Paresthesia (Primary Dx) Start: 07-14-2024 End: 07-14-2024 ambulatory RAVEN SESAY Not Available Start: 06-17-2024 End: 06-17-2024 Bamboo flowsheet Cleve Sheth DO Work Phone: [facility] Start: 06-17-2024 End: 06-17-2024 Bamboo flowsheet Cleve Sheth DO Work Phone: [facility] Start: 06-17-2024 End: 06-17-2024 Office outpatient visit 25 minutes Cleve Sheth DO Work Phone: [facility] Comment on above: Chronic right hip pa in (Primary Dx); Sacral insufficiency fracture, initial encounter ([facility]); Closed fracture of multiple pubic rami, right, initial encounter ([facility]) Start: 06-17-2024 End: 06-17-2024 ambulatory CLEVE SHETH Not Available Start: 06-13-2024 End: 06-13-2024 Emergency department patient visit KRZYSZTOF Marmolejo Alison [facility] Start: 06-12-2024 End: 06-12-2024 ambulatory CLEVE SHETH Not Available Start: 06-05-2024 End: 06-18-2024 Telephone encounter Miranda Case PT [facility] PT Comment on above: PT Initial Eval [...] ) Start: 06-05-2024 End: 06-05-2024 ambulatory CLEVE Arguelles MERYL Not Available Start: 2024 End: 2024 ambulatory CLEVE Arguelles MERYL Not Available Start: 04-01-2024 End: 04-01-2024 ambulatory CLEVE Arguelles MERYL Not Available Start: 03-26-2024 Non-patient / Non-visit MD Krzysztof Harp Work Phone: [facility] Work Phone: Start: 03-26-2024 End: 03-26-2024 Admission to same day surgery center MD Krzysztof Harp Work Phone: [facility] Work Phone: Start: 03-26-2024 End: 03-26-2024 ambulatory MD Krzysztof Harp Work Phone: [facility] Work Phone: Start: 02-19-2024 End: 02-19-2024 ambulatory MD Krzysztof Harp Work Phone: [facility] Work Phone: Start: 02-19-2024 End: 02-19-2024 Patient encounter procedure MD Krzysztof Harp Work Phone: [facility] [facility] Work Phone: Start: 02-05-2024 Non-patient / Non-visit MD Krzysztof Harp Work Phone: [facility] Work Phone: Start: 02-05-2024 End: 02-05-2024 Admission to same day surgery center MD Krzysztof Harp Work Phone: [facility] Work Phone: Start: 02-05-2024 End: 02-05-2024 ambulatory MD Krzysztof Harp Work Phone: [facility] Work Phone: Start: 01-16-2024 Non-patient / Non-visit MD Krzysztof Harp Work Phone: [facility] Work Phone: Start: 01-09-2024 End: 01-09-2024 ambulatory DARSHAN HERNANDEZ Not Available Start: 01-07-2024 ambulatory KRZYSZTOF HARP [facility] Start: 01-16-2023 ambulatory JNEDWINA GARCIA . Facility :[facility]1 Start: 01-15-2023 End: 01-15-2023 ambulatory APRIL CASTANEDA . Facility:[facility] Start: 01-10-2023 End: 01-11-[address] KRZYSZTOF HARP . Facility:[facility] Start: 12-15-2022 End: 12-15-2022 ambulatory APRIL CASTANEDA . Facility:[facility] Start: 12-15-2022 ambulatory RODRIGUEZ RIVERA [facility] Start: 12-05-2022 End: 12-06-[address] KRZYSZTOF [...] End: 05-25-[address] KRZYSZTOF HARP . Facility: Start: 05-11-2022 End: 05-12-[address] KRZYSZTOF HARP . Facility: Start: 02-14-2022 End: 02-15-[address] KRZYSZTOF HARP . Facility: Start: 11-19-2018 End: 11-20-2018 Patient encounter procedure PROVIDER UNKNOWN Facility:[facility] Start: 11-13-2018 End: 11-14-2018 Patient encounter procedure DEFAULT PHYSICIAN Facility:[facility] Start: 10-31-2018 End: 11-01-2018 Patient encounter procedure DEFAULT PHYSICIAN Facility:[facility] Start: 09-23-2018 End: 09-24-2018 Patient encounter procedure DEFAULT PHYSICIAN Facility:[facility] Start: 09-05-2018 End: 09-06-2018 Patient encounter procedure DEFAULT PHYSICIAN Facility:[facility] Procedures Date Procedure Procedure Detail Performing Clinician Start: 07-17-2024 End: 07-17-2024 Needle emg ea extremty w/paraspinl area complete Raven Sesay DO Work Phone: Start: 03-26-2024 Screening colonoscopy MD Krzysztof Harp Work Phone: Start: 02-05-2024 Esophagogastroduodenoscopy MD Krzysztof oconnor Work Phone: Plan of Treatment Date Care Activity Detail Author Start: 08-11-2024 End: 08-11-2024 Patient encounter procedure 08/11/2024 2:15 PM EST Office Visit [facility] [address] [place] [phone] Raven Sesay DO [address] [place] [address] [facility] [address] [address] Start: 07-17-2024 End: 07-17-2024 Patient encounter procedure [facility] [address] Comment on above: Arrived Start: 07-15-2024 End: 07-15-2024 Patient encounter procedure [facility] Start: 07-14-2024 End: 07-14-2025 EMG 1 Extremeity EMG 1 Extremeity Neurology Routine Paresthesia Expected: 07/14/2024, Expires: 07/14/2025 [facility] Work Phone: Comment on above: Expected: 07/14/2024 , Expires: 07/14/2025 Start: 07-14-2024 End: 07-14-2024 Patient encounter procedure [facility] [address] Comment on above: Brachial plexopathy; Ulnar neuropathy of left upper extremity Start: 06-17-2024 End: 06-17-2024 Patient encounter procedure 06/17/2024 1:30 PM EDT Office Visit [facility] [address] [facility] [address] [place] [address] Cleve Sheth, DO [address] [facility] [address] [place] [address] Chronic right hip pain (Primary Dx); Sacral insufficiency fracture, initial encounter (CMS/HCC); Closed fracture of multiple pubic rami, right, initial encounter (CMS/HCC) [facility] Comment on above: Chronic right hip pa in (Primary Dx); Sacral insufficiency fracture, initial encounter (CMS/HCC); Closed fracture of multiple pubic rami, right, initial encounter (CMS/HCC) Start: 05-11-2024 Influenza vaccination Influenza Vacc ine (#1) [facility] Start: 03-26-2024 [facility] Start: 02-05-2024 [facility] Patient Education [facility] Work Phone: Immunizations Immunization Date Immunization Notes Care Provider Kimberly laurent 06-19-2024 influenza virus vacc ine, unspecified formulation Raven Sesay DO Work Phone: [facility] 06-05-2023 Influenza, Seasonal, Quadrivalent, Adjuvanted Cleve Sheth DO Work Phone: [facility] 06-05-2023 influenza virus vacc ine, unspecified formulation Cleve Sheth DO Work Phone: [facility] 06-12-2022 influenza, high dose seasonal, preservative-free Cleve Sheth DO Work Phone: [facility] 05-30-2022 Influenza, High-dose Seasonal, Quadrivalent, Preservative Free Cleve Sheth DO Work Phone: [facility] 06-15-2021 Influenza, High-dose Seasonal, Quadrivalent, Preservative Free Cleve Sheth DO Work Phone: [facility] 01-10-2021 SARS-CoV-2, Unspecified Amando Sheth DO Work Phone: [facility] 06-18-2018 influenza, high dose seasonal, preservative-free Cleve Sheth DO Work Phone: [facility] 05-22-2017 influenza, injectabl e, quadrivalent, preservative free Cleve Sheth DO Work Phone: [facility] 06-14-2016 influenza, high dose seasonal, preservative-free Cleve Sheth DO Work Phone: [facility] 06-03-2015 influenza, high dose seasonal, preservative-free Cleve Sheth DO Work Phone: [facility] 09-10-2014 pneumococcal conjuga te vaccine, 13 valent Cleve Sheth DO Work Phone: [facility] 06-10-2014 influenza, seasonal, injectable Cleve Sheth DO Work Phone: [facility] 08-11-2013 zoster vaccine, live Cleve ponce DO Work Phone: [facility] 07-14-2013 pneumococcal polysaccharide vaccine, 23 valent Cleve Sheth DO Work Phone: [facility] 06-30-2013 seasonal influenza, intradermal, preservative free Cleve Sheth DO Work Phone: [facility] Payers Date Payer Category Payer Self-pay 2021 Medicare [employer] MEDICARE ADVANTAGE FOR[facility]LY [facility] MEDICARE ADVANTAGE [id number] 2021-Present [address] [place] [address] [id number] 2021 Medicare (Managed Care) NEAL Jaleel SHEPHERD ADVANTAGE [id number] 2015 Medicare [id number] 1959 Unknown [id number] 1950 Unknown [id number] 2.16840.1.712928.3.579. 2.647 1948 Unknown [id number] 2.16840.1.712935.3.579. 2.647 1948 Unknown [id number] 2.16840.1.029878.3.579. 2.647 1948 Unknown [id number] 2.16840.1.527753.3.579. 2.647 1948 Unknown [id number] 2.16.840.1.803376.3.579. 2.647 1948 Unknown [id number] 2.16.840.1.963029.3.579. 2.593 1948 Unknown [id number] 2.16.840.1.815582.3.579. 2.593 1948 Unknown [id number] 2.16.840.1.651101.3.579. 2.593 1948 Unknown [id number] 2.16.840.1.403756.3.579. 2.593 1948 Unknown [id number] 2.16.840.1.148131.3.579. 2.593 1948 Unknown [id number] 2.16.840.1.005771.3.579. 2.593 1948 Unknown [id number] 2.16.840.1.030717.3.579. 2.593 1948 Unknown [id number] 2.16.840.1.555179.3.579. 2.593 1948 Unknown [id number] 2.16.840.1.125004.3.579. 2.593 1948 Unknown [id number] 2.16.840.1.568559.3.579. 2.593 1948 Unknown [id number] 2.16840.1.906182.3.579. 2.593 1948 Unknown [id number] 2.840.1.854744.3.579. 2.593 1948 Unknown [id number] 2.16.840.1.359158.3.579. 2.593 1948 Unknown [id number] 2.16.840.1.997861.3.579. 2.593 1948 Unknown [id number] 2.16840.1.540797.3.579. 2.593 1948 Unknown [id number] 2.840.1.961545.3.579. 2.593 1948 Unknown [id number] 2.16840.1.301135.3.579. 2.593 1948 Unknown [id number] 2.16.840.1.392788.3.579. 2.593 1948 Unknown [id number] 2.16.840.1.509407.3.579. 2.593 1948 Unknown [id number] 2.16.840.1.936238.3.579. 2.1286 1948 Unknown [id number] 2.16.840.1.231672.3.579. 2.128 1948 Unknown [id number] 2.16.840.1.481501.3.579. 2.1285 1948 Unknown [id number] 2.16.840.1.787649.3.579. 2.1285 1948 Unknown [id number] 2.16.840.1.075788.3.579. 2.1258 1948 Unknown [id number] 2.16.840.1.960660.3.579. 2.1258 1948 Unknown [id number] 2.16840.1.795678.3.579. 2.1258 1948 Unknown [id number] 2.16840.1.961982.3.579. 2.1258 1948 Unknown [id number] 2.840.1.270546.3.579. 2.1258 1948 Unknown [id number] 2.16840.1.155125.3.579. 2.1258 1948 Unknown [id number] 2.16840.1.987166.3.579. 2.1258 1948 Unknown [id number] 2.16840.1.937028.3.579. 2.1258 1948 Unknown [id number] 2.16840.1.767218.3.579. 2.1258 1948 Unknown [id number] 2.16840.1.194322.3.579. 2.1258 1948 Unknown [id number] 2.16.840.1.162311.3.579. 2.1285 1948 Unknown [id number] 2.16.840.1.721870.3.579. 2.1285 1948 Unknown [id number] 2.16840.1.320889.3.579. 2.1286 Medicare [id number] Unknown Unknown [id number] 2.16.840.1.079062.3.579. 2.531 Unknown [id number] 2.16.840.1.384103.3.579. 2.531 Social History Date Type Detail Facility Start: 05-04-2023 End: 02-05-2024 Tobacco smoking status NHIS Never smoked tobacco (finding) [facility] Start: 1950 Sex Assigned At Female [facility] Start: 01-09-2024 End: 07-14-2024 Alcoholic beverage intake Lifetime non-drinker (finding) [facility] Start: 01-09-2024 End: 07-14-2024 History of Social function [facility] Start: 01-09-2024 End: 07-14-2024 Tobacco use panel [facility] Start: 1950 Sex assigned at Not on file N S Healthcare Goals Date Patient Goal Desired Activity /State Clinical Notes 02-14-2022 to 07-17-2024 Jarrett Palmer, ARRT - 07/17/2024 9:00 AM Vishnu Sheth, DO - 07/15/2024 10:30 AM Javier Sesay DO - 07/14/2024 1:30 PM Vishnu Sheth, DO - 06/17/2024 1:30 PM EDT Note Date & Type Note Facility 07-17-2024 History of Presen t illness Narrative Images from the original note were not included. Reason for Appointment: EMG Patient: Sheila Mac : 1950 EMG Computer: [employer] Referring Physician: Dr. Raven Sesay EMG: CINTHYA endoscopy support specialist: Jarrett Palmer RT(R) Office Location: [place] Reason for EMG: c/o numbness/tingling in left [...] of the test. documented in this encounter [facility] 07-15-2024 History of Presen t illness Narrative Images from the original note were not included. HISTORY OF PRESENT ILLNESS: Sheila Mac is an 74 y.o. @ female. Chief complaint RT hip pain RT hip: using calcitonin NS Pt went to [facility] ER 06/13, X-rays done pelvis and lumbar. RX for lidoderm patches given, she states she could hardly walk. RT hip pain x 3-4 months, worsened on 05/31 after going to the grocery store. Denies injury. She had injections at [facility] in April without relief. She saw Dr Harp 06/02 and 06/04, given IM injections-no relief. She is walking better, using rollator. Mild ache in the thigh. Using pain spray daily Saw Dr Harp 06/02 and 06/04. XR done at [facility] 06/02/24. Using hot icy hot. Given IM torodol, Tramadol RX and PT ordered, XR [facility] 06/05/24, MRI [facility] 06/12/24, [facility] ER 06/13/24, lidoderm patches, calcitonin NS MEDICATION: [...] HISTORY: Past Medical History: Diagnosis Date Diabetes (CMS/HCC) Diverticulitis Gastric ulcer GERD (gastroesophageal reflux disease) HTN (hypertension) (CMS/HCC) Osteoporosis (CMS/HCC) Pancreatitis Rheumatic fever ALLERGIES: Allergies Allergen Reactions Iodinated Contrast Media Morphine Penicillins Nsaids Rash VITALS: Visit Vitals Smoking Status Never PHYSICAL EXAM: Ortho Exam RIGHT HIP Using Rollator Strength 4/5 ROM 30 IR and 30 ER IMAGING: June 05, 2024 x-rays from the [place] office AP pelvis and lateral of the right hip demonstrate an intact hip joint space. There are no fractures detected. The bone has an osteopenic appearance. The joint spaces are symmetric. There is no obvious effusion or soft tissue swelling. Impression: No acute findings on x-rays of the right hip Hemal Sheth D.O. MRI of the right hip from the [facility] center. There is a sacral insufficiency fracture [...] of multiple pubic rami, right, initial encounter ([facility]) S32.591A calcitonin, salmon, (Miacalcin) 200 UNIT/ACT nasal [...] Sheth D.O. documented in this encounter [facility] 07-14-2024 History of Presen t illness Narrative [...] headaches. Past Medical History: Diagnosis Date Diabetes ([facility]) Diverticulitis Gastric ulcer GERD (gastroesophageal reflux disease) HTN (hypertension) ([facility]/HCC) Osteoporosis ([facility]) Pancreatitis Rheumatic fever Past Surgical History: Procedure Laterality Date APPENDECTOMY BACK SURGERY 1991 HEART CATH HM MAMMOGRAPHY 2012 HYSTERECTOMY Diabetes LUMBAR SPINE SURGERY NECK SURGERY OTHER SURGICAL HISTORY Sigmoid Diverticulosis OTHER SURGICAL HISTORY 2017 perforated ulcer [facility] KNE SURG W/MENISCECTOMY MED/LAT W/SHVG Right [...] , wrist extensors , wrist flexor , senior communications specialist strength 5/5. LUE Strength deltoid , biceps , triceps , wrist extensors , wrist flexor , senior communications specialist strength 5/5. RLE Strength illopsoas, quadriceps, tibialis [...] reflex 0 . Metzger's sign negative. Coordination: Plmxgh-vb-hurw testing and rapid alternating movements are normal [...] and return instructions documented in this encounter [facility] 06-17-2024 History of Presen t illness Narrative Images from the original note were not included. HISTORY OF PRESENT ILLNESS: Sheila Mac is an 74 y.o. @ female. Chief complaint RT hip pain RT hip: here for MRI results [facility] 06/12/24 Pt went to [facility] ER 06/13, X-rays done pelvis and lumbar. RX for lidoderm patches given, she states she could hardly walk. RT hip pain x 2-3 months, worsened on 05/31 after going to the grocery store. Denies injury. She had injections at [facility] in April without relief. She saw Dr [...] Harp 06/02 and 06/04. XR done at [facility] 06/02/24. Using hot icy hot. Given IM torodol, Tramadol RX and PT ordered, XR [facility] 06/05/24, MRI [facility] 06/12/24, [facility] ER 06/13/24, lidoderm patches I reviewed notes from [facility] department dated June 13, 2024. [...] HISTORY: Past Medical History: Diagnosis Date Diabetes ([facility]) Diverticulitis Gastric ulcer GERD (gastroesophageal reflux disease) HTN (hypertension) ([facility]) Osteoporosis ([facility]) Pancreatitis Rheumatic fever ALLERGIES: Allergies Allergen Reactions [...] IMAGING: June 05, 2024 x-rays from the [place] office AP pelvis and lateral of the right hip demonstrate an intact hip joint space. There are no fractures detected. The bone has an osteopenic appearance. The joint spaces are symmetric. There is no obvious effusion or soft tissue swelling. Impression: No acute findings on x-rays of the right hip Hemal Sheth D.O. I reviewed an MRI of the right hip from the [facility] imaging center. There is a sacral insufficiency fracture and suspected insufficiency fractures of the right superior and inferior pubic rami. The right hip joint is intact and there are no fractures in the hip. There is loss of articular cartilage in the right hip consistent with arthritis. ASSESSMENT: ICD-10-CM 1. Chronic right hip pain M25.551 G89.29 2. Sacral insufficiency fracture, initial encounter ([facility]) M84.48XA 3. Closed fracture of multiple pubic rami, right, initial encounter ([facility]) S32.591A calcitonin, salmon, (Miacalcin) 200 UNIT/ACT nasal [...] Sheth D.O. documented in this encounter [facility] 06-05-2024 Telephone encounter Note $40.00 copay / Prior auth needed. [facility] 06-05-2024 Miscellaneous Notes $40.00 copay / Prior auth needed. documented in this encounter [facility] 03-26-2024 Procedure note [facility] 02-05-2024 Procedure note [facility] 12-15-2022 Note Cardiology Follow Up Progress [...] She will be (more content not included)... [facility] 12-15-2022 Note Review of Systems Cardiovascular: Positive for leg swelling. Respiratory: Positive for shortness of breath. Skin: Positive for color change. Neurological: Positive for headaches. All other systems reviewed and are negative. [facility] 07-25-2022 Note PROCEDURE: MRA NECK WO [...] authenticated by: DANIEL MARIE Date: 2022-07-25 13:25 [facility] 05-11-2022 Note PROCEDURE: XR FOOT [...] authenticated by: DANIEL MARIE Date: 2022-05-11 12:51 [facility] 02-14-2022 Note PROCEDURE: XR KNEE L T 4V or > COMPARISON: None. HISTORY: Osteoarthritis FINDINGS: BONES:No fracture, acute abnormality, or significant arthropathy. SOFT TISSUES:Negative. No visible soft tissue swelling. EFFUSION:Moderate suprapatellar joint effusion OTHER: Negative. IMPRESSION: Moderate joint effusion Electronically authenticated by: GODWIN BECK Date: 2022-02-14 17:30 [facility] Evaluation note No assessment inform ation available [facility] Work Phone: Evaluation note Diagnosis Onset Date Duodenal diverticulum acute Hiatal hernia acute IBS (irritable bowel syndrome) acute Screening for colon cancer a cute [facility] Work Phone: Evaluation note* Diagnosis Chronic right hip pain- Primary Sacral insufficiency fracture, initial encounter ([facility]) Closed fracture of multiple pubic rami, right, initial encounter ([facility]) [facility] Diagnosis Paresthesia- Primary Disturbance of skin sensation documented in this encounter [facility] Diagnosis Chronic right hip pain- Primary Sacral insufficiency fracture with routine healing, subsequent encounter Closed fracture of multiple pubic rami, right, initial encounter ([facility]) documented [facility]* Diagnosis Cervical radiculopathy- Primary Brachial neuritis or radiculitis nos Paresthesia Disturbance of skin sensation documented in this encounter [facility] Author Ben Sanchez [facility] February 05, 2024 1:08pm Note Date/Time February 05, 2024 1:08p m [facility] [address] [place] [address] Gastroenterology H&P Signed Patient: Sheila Mac MR#: [id number] : 1950 Acct:[id number] Age/Sex: 73 / F Adm Date: 4 Loc: Room: Type: [facility] Attending Dr: Ben Sanchez MD [...] is an appropriate candidate for the procedure. eBn Sanchez MD Documented By: Ben Sanchez MD 02/05/24 1305 Signed By: <Electronically signed by Ben Sanchez MD> 02/05/24 1308 [facility] Work Phone: History and physical note Author Ben Sanchez [facility] March 26, 2024 10:37am Note Date/Time March 26, 2024 10:[address] [facility] [address] [place] [address] Gastroenterology H&P Signed Patient: Sheila Mac MR#: [id number] : 1950 Acct:[id number] Age/Sex: 73 / F Adm Date: 4 Loc: Room: Type: [facility] Attending Dr: Ben Sanchez MD [...] signed by Ben Sanchez MD> 03/26/24 1037 [facility] Work Phone: Reason for visit Narrative* Consultation (Routine) - Closed Specialty Diagnoses / Procedures Referred By Contoriana t Referred To Contact Neurology Diagnoses Brachial plexopathy Ulnar neuropathy of left upper extremity Procedures [place] OFFICE/OUTPATIENT [facility] 60 MINUTES Cleve Sheth DO [address] [address] Phone: tel: fax: Daniel Patiño MD [address] [place] [address] Phone: tel: fax: Referral ID Status Reason Start Date Expiration Date V isits Requested Visits Authorized [id number] Closed Consult and Treat 2024 10/05/2024 1 [...] section and content) DATE CREATED AUTHOR 11/24/2018 [facility] DATE CREATED AUTHOR AUTHOR'S ORGANIZ ATION 12/19/2022 [facility] DATE CREATED AUTHOR AUTHOR'S ORGANIZ ATION 01/18/2023 [facility] DATE CREATED AUTHOR AUTHOR'S ORGANIZ ATION 03/29/2024 [facility] DATE CREATED AUTHOR AUTHOR'S ORGANIZ ATION 07/18/2024 [facility] DATE CREATED AUTHOR AUTHOR'S ORGANIZ ATION 07/19/2024 [facility] EPIC DATE CREATED AUTHOR AUTHOR'S ORGANIZ ATION 07/29/2024 [facility] Care Teams (unrecognized sec tion and content) [...] Provide r Active Start: March 26, 2024 Hotel General Manager Relationship Specialty Start Date End Date Krzysztof Harp MD [address] [place] [address] PCP - General Family Medicine 01/09/24 Hotel General Manager Relationship Specialty Start Date End Date Krzysztof Harp MD [address] [place] [address] PCP - General Family Medicine 01/09/24 Hotel General Manager Relationship Specialty Start Date End Date Krzysztof Harp MD [address] [place] [address] PCP - General Family Medicine 01/09/24 Hotel General Manager Relationship Specialty Start Date End Date Krzysztof Harp MD [address] [place] [address] PCP - General Family Medicine 01/09/24 Hotel General Manager Relationship Specialty Start Date End Date Krzysztof Harp MD [address] [place] [address] PCP - General Family Medicine 01/09/24 Raven Sesay DO [address] [address] Referring Physician Neurology 07/14/24 Hotel General Manager Relationship Specialty Start Date End Date Krzysztof Harp MD [address] [place] [address] PCP - General Family Medicine 01/09/24 Raven Sesay DO [address] [place] [id number] Referring Physician Neurology 07/14/24 Hotel General Manager Relationship Specialty Start Date End Date Krzysztof Harp MD [address] [place] [address] PCP - General Family Medicine 01/09/24 Raven Sesay DO [address] [address] Referring Physician Neurology 07/14/24 Hotel General Manager Relationship Specialty Start Date End Date Krzysztof Harp MD [address] [place] [address] PCP - General Family Medicine 01/09/24 Raven Sesay DO [address] [place] [address] Referring Physician Neurology 07/14/24 Reason for Visit (unrecogniz ed section and content) Reason Comments Pain Reason Onset Date Comments PT Initial Eval 06/05/2024 Contacted and of fered to schedule PT eval per Dr. Harp. [...] BE BASED ON THE PRIMARY CLINICAL RECORDS. [employer] provides no warranty or guarantee of the accuracy or completeness of information in this document.
== END 2024-07-30 12:07 | disposition home or self-care (01) ==
PROVIDERS: PCP Family Medicine; Visit Provider Family Medicine
DX: M25.532 Pain in left wrist (principal)
CPT/HCPCS: 73130

== ENCOUNTER 2024-08-01 16:55 | Outpatient (OUT) | payer MEDICARE, SELFPAY ==
--- OUTSIDE RECORDS SUMMARY | 2024-08-01 17:09 | XMS_ITS | CCD ---
Author Organization [facility] Team Providers Care Plate Grainer Name Role Phone PHYSICIAN, DEFAULT Admitting Unavailable [...] Unavailable HOY ., DR BLANKENSHIP Admmilton Unavailable [place], DR GODWIN Cardona Consulting Unavailable HOY ., [...] BLANKENSHIP Primary Care Unavailable ZIEBER, DR DANIEL rEazo Consulting Unavailable HOY ., DR BLANKENSHIP Consulting [...] Provider MD Krzysztof Harp Primary Care Provider [phone] Ben Sanchez Admitting Unavailable Ben Sanchez Attending Unavailable Krzysztof Harp Primary Care Unavailable Ben Sanchez Admitting Unavailable Ben Sanchez Attending Unavailable Krzysztof Hrap Primary Care Unavailable Krzysztof Harp MD Primary Care Provider [phone] Raven Sesay DO Unavailable [phone] KRZYSZTOF HARP Referring Unavailable HOY, KRZYSZTOF M [...] Vomiting [facility] Repository (5 sources) NSAIDs; Translations: [NSAIDS (NON-STEROIDAL ANTI-INFLAMMATOR Y DRUG)] Drug allergy (disorder) 03-12-201 9 [facility] Repository (1 source) Penicillin Drug Allergy 9 [facility] (1 source) predniSONE Drug Allergy 9 [facility] Repository (2 sources) Iodinated Contrast- Oral and IV Dye Drug allergy (disorder) 5 [facility] Repository (19 sources) Penicillins; Translations: [PENICILLINS] Propensity to adverse reactions to drug (disorder) 5 Rash [facility] Repository (18 sources) IODINATED CONTRAST MEDIA; Translations: [IODINATED CONTRAST MEDIA] Propensity to adverse reactions to drug (disorder) 3 Anaphylaxis [facility] Repository (1 source) levoFLOXacin Drug Allergy 3 [facility] Repository (1 source) meloxicam Drug Allergy 3 [facility] Repository (4 sources) NSAIDS (Non-Steroidal Anti-Inflamma; Translations: [NSAIDS (Non-Steroidal Anti-Inflamma] Propensity to adverse reactions 4 Stomach Ulcer [facility] (1 source) Morphine Drug Allergy 4 [facility] Repository (11 sources) Morphine Drug Allergy 3 [facility] (6 sources) Non-steroidal anti-inflammator y agent Propensity to adverse reactions 4 [facility] (2 sources) Contrast media; Translations: [DYE] Propensity [...] of multiple pubic rami, right, initial encounter (CMS/[facility]) Administer 1 spray into one nostril Daily [...] Coronary atherosclerosis; Translations: [Atherosclerotic heart disease of [place] coronary artery without angina pectoris] Onset: 02-11-2010 [...] 07-29-2013 01-09-2024 Chronic Other aftercare (2 sources) ocean transportation intermediary (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) use of 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; 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: [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 OF ASPIRIN] Onset: 11-19-2018 Episodic Other aftercare (1 source) 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) drug therapy; Translations: [OTH ASSISTED CURRENT DRUG THERAPY] Onset: 01-17-2023 Episodic Other [...] 4 C8 radiculopathy on the left, moderate [facility] NVC 5-6 Nerveson 07-17-2024 C8 radiculopathy [...] 10:24 PM Normal [facility] XR SPINE LUMBAR 2 OR 3 [...] 10:20 PM Normal [facility] MR HIP RIGHT WO IV CONTRASTo [...] by: DANIEL MARIE Date: 2023-01-15 08:25 Normal [facility] XR ANKLE LT MIN 3 Von 2022 [...] GONZALEZ JAMESMESSI Date: 2023-01-15 07:28 Normal [facility] VITAMIN B1 (THIAMINE)on Vit. B1, Whole Blood 118.1 nmol/L Normal 66.5-200.0 [facility] Comment on above: Performed By: #### C BC #### [facility] [address] [place] [address] Dr. Ekta Funk BNPon 01-10-2023 Natriuretic peptide B (Bld) [Mass/Vol] 980.0 pg/mL Critically high <=900.0 [facility] Comment on above: Performed By: #### C VDTBH #### [facility] [address] [place] [address] Dr. Ekta Funk CBC AUTO DIFFon 01-10-2023 BASO # 0.1 103/ul Normal 0.0-0.1 [facility] Comment on above: Performed By: #### C MP #### [facility] [address] [place] [address] Dr. Ekta Funk Basophils/100 WBC (Bld) 1.0 % Normal 0.2-2.0 [facility] Comment on above: Performed By: #### C MP #### [facility] [address] [place] [address] Dr. Ekta Funk EO # 0.4 103/ul Normal 0.0-0.7 [facility] Comment on above: Performed By: #### C MP #### [facility] [address] [place] [address] Dr. Ekta Funk Eosinophils/100 WBC (Bld) 3.7 % Normal 0.9-7.0 [facility] Comment on above: Performed By: #### C MP #### [facility] [address] [place] [address] Dr. Ekta Funk Erythrocyte distribution width (RBC) [Ratio] 13.2 % Normal 11.0-15.0 [facility] Comment on above: Performed By: #### C MP #### [facility] [address] [place] [address] Dr. Ekta Funk Hematocrit (Bld) [Volume fraction] 35.1 % Critically low 36.0-48.0 [facility] Comment on above: Performed By: #### C MP #### [facility] [address] [place] [address] Dr. Ekta Funk Hemoglobin (Bld) [Mass/Vol] 11.3 g/dL Critically low 12.0-16.0 [facility] Comment on above: Performed By: #### C MP #### [facility] [address] [place] [address] Dr. Ekta Funk IG # 0.04 10e3/ul Critically high 0.00-0.03 [facility] Comment on above: Performed By: #### C MP #### [facility] [address] [place] [address] Dr. Ekta Funk IG % 0.4 % Normal 0.0-0.5 [facility] Comment on above: Performed By: #### C MP #### [facility] [address] [place] [address] Dr. Ekta Funk LYMPH # 2.0 103/ul Normal 1.2-3.8 [facility] Comment on above: Performed By: #### C MP #### [facility] [address] [place] [address] Dr. Ekta Funk Lymphocytes/100 WBC (Bld) 20.8 % Normal 20.5-60.0 [facility] Comment on above: Performed By: #### C MP #### [facility] [address] [place] [address] Dr. Ekta Funk MANUAL DIFF REQ NO Normal [facility] Comment on above: Performed By: #### C MP #### [facility] [address] [place] [address] Dr. Ekta Funk MCH (RBC) [Entitic mass] 32.3 pg Normal 26.7-34.0 [facility] Comment on above: Performed By: #### C MP #### [facility] [address] [place] [address] Dr. Ekta Funk MCHC (RBC) [Mass/Vol] 32.2 g/dL Normal 29.9-35.2 [facility] Comment on above: Performed By: #### C MP #### [facility] [address] [place] [address] Dr. Ekta Funk MCV (RBC) [Entitic vol] 100.3 fL Critically high 81.0-99.0 [facility] Comment on above: Performed By: #### C MP #### [facility] [address] [place] [address] Dr. Ekta Funk MONO # 0.8 103/ul Normal 0.3-0.8 [facility] Comment on above: Performed By: #### C MP #### [facility] [address] [place] [address] Dr. Ekta Funk Monocytes/100 WBC (Bld) 7.9 % Normal 1.7-12.0 [facility] Comment on above: Performed By: #### C MP #### [facility] [address] [place] [address] Dr. Ekta Funk NEUT # 6.4 103/ul Normal 1.4-6.5 [facility] Comment on above: Performed By: #### C MP #### [facility] [address] [place] [address] Dr. Ekta Funk Neutrophils/100 WBC (Bld) 66.2 % Normal 43.0-75.0 [facility] Comment on above: Performed By: #### C MP #### [facility] [address] [place] [address] Dr. Ekta Funk Platelet mean volume (Bld) [Entitic vol] 9.6 fL Normal 9.5-13.5 [facility] Comment on above: Performed By: #### C MP #### [facility] [address] [place] [address] Dr. Ekta Funk PLT 255 103/ul Normal 150-450 [facility] Comment on above: Performed By: #### C MP #### [facility] [address] [place] [address] Dr. Ekta Funk RBC 3.50 106/ul Critically low 4.20-5.40 [facility] Comment on above: Performed By: #### C MP #### [facility] [address] [place] [address] Dr. Ekta Funk WBC 9.7 103/ul Normal 4.0-11.0 [facility] Comment on above: Performed By: #### C MP #### [facility] [address] [place] [address] Dr. Ekta Funk CRPon 01-10-2023 CRP [Mass/Vol] mg/L Normal <=1.0 [facility] Comment on above: Performed By: #### C BC #### [facility] [address] [place] [address] Dr. Ekta Funk FREE THYROXINE INDEX T7on FTI 2.62 Normal 1.30-4.50 [facility] Comment on above: Performed By: #### C BC #### [facility] [address] [place] [address] Dr. Ekta Funk T3U 32.0 % Normal 30.0-39.0 [facility] Comment on above: Performed By: #### C BC #### [facility] [address] [place] [address] Dr. Ekta Funk T4 [Mass/Vol] 8.20 ug/dL Normal 4.80-13.90 [facility] Comment on above: Performed By: #### C BC #### [facility] [address] [place] [address] Dr. Ekta Funk IRONon 01-10-2023 Iron [Mass/Vol] 61.0 ug/dL Normal 50.0-170.0 [facility] Comment on above: Performed By: #### B 12FOL, VITAD, IRON #### [facility] [address] [place] [address] Dr. Ekta Funk PROF 14(COMP METB)on 023 Albumin [Mass/Vol] 2.9 g/dL Critically low 3.4-5.0 [facility] Comment on above: Performed By: #### C VDTBH #### [facility] [address] [place] [address] Dr. Ekta Funk Albumin/Globulin [Mass ratio] 0.6 {ratio} Normal [facility] Comment on above: Performed By: #### C VDTBH #### [facility] [address] [place] [address] Dr. Ekta Funk ALP [Catalytic activity/Vol] 101 U/L Normal 46-116 [facility] Comment on above: Performed By: #### C VDTBH #### [facility] [address] [place] [address] Dr. Ekta Funk ALT [Catalytic activity/Vol] 16 U/L Normal 14-59 [facility] Comment on above: Performed By: #### C VDTBH #### [facility] [address] [place] [address] Dr. Ekta Funk Anion gap [Moles/Vol] 14.6 mmol/L Normal [facility] Comment on above: Performed By: #### C VDTBH #### [facility] [address] [place] [address] Dr. Ekta Funk AST [Catalytic activity/Vol] 15 U/L Normal 15-37 [facility] Comment on above: Performed By: #### C VDTBH #### [facility] [address] [place] [address] Dr. Ekta Funk Bilirubin [Mass/Vol] 0.4 mg/dL Normal 0.2-1.0 [facility] Comment on above: Performed By: #### C VDTBH #### [facility] [address] [place] [address] Dr. Ekta Funk Calcium [Mass/Vol] 9.2 mg/dL Normal 8.5-10.1 [facility] Comment on above: Performed By: #### C VDTBH #### [facility] [address] [place] [address] Dr. Ekta Funk Chloride [Moles/Vol] 107 mmol/L Normal 98-107 [facility] Comment on above: Performed By: #### C VDTBH #### [facility] [address] [place] [address] Dr. Ekta Funk CO2 [Moles/Vol] 24.4 mmol/L Normal 21.0-32.0 [facility] Comment on above: Performed By: #### C VDTBH #### [facility] [address] [address] [address] Ekta Funk Creatinine [Mass/Vol] 2.02 mg/dL Critically high 0.55-1.02 [facility] Comment on above: Performed By: #### C VDTBH #### [facility] [address] [address] [address] Ekta Funk EGFR-AF KUWAITI 29 mL/min/1.73m2 Critically low >=60 [facility] Comment on above: Performed By: #### C VDTBH #### [facility] [address] [address] [address] Ekta Funk EGFR-NON AF [place] 24 mL/min/1.73m2 Critically low >=60 [facility] Comment on above: Performed By: #### C VDTBH #### [facility] [address] [address] [address] Ekta Funk Globulin (S) [Mass/Vol] 4.5 g/dL Normal [facility] Comment on above: Performed By: #### C VDTBH #### [facility] [address] [address] [address] Ekta Funk Glucose [Mass/Vol] 103 mg/dL Normal 74-106 [facility] Comment on above: Performed By: #### C VDTBH #### [facility] [address] [address] [address] Ekta Funk Potassium [Moles/Vol] 5.0 mmol/L Normal 3.5-5.1 [facility] Comment on above: Performed By: #### C VDTBH #### [facility] [address] [address] [address] Ekta Funk Protein [Mass/Vol] 7.4 g/dL Normal 6.4-8.2 [facility] Comment on above: Performed By: #### C VDTBH #### [facility] [address] [place] [address] Dr. Ekta Funk Sodium [Moles/Vol] 141 mmol/L Normal 136-145 [facility] Comment on above: Performed By: #### C VDTBH #### [facility] [address] [place] [address] Dr. Ekta Funk Urea nitrogen [Mass/Vol] 23.0 mg/dL Critically high 7.0-18.0 [facility] Comment on above: Performed By: #### C VDTBH #### [facility] [address] [place] [address] Dr. Ekta Funk Urea nitrogen/Creatinine [Mass ratio] 11.4 mg/mg Normal [facility] Comment on above: Performed By: #### C VDTBH #### [facility] [address] [place] [address] Dr. Ekta Funk TSHon 01-10-2023 TSH 1.793 uIU/mL Normal 0.358-3.740 [facility] Comment on above: Performed By: #### C VDTBH #### [facility] [address] [place] [address] Dr. Ekta Funk VIT B12 AND FOLATEon 023 Cobalamin (Vitamin B12) [Mass/Vol] 175.0 pg/mL Critically low 193.0-986.0 [facility] Comment on above: Performed By: #### B 12FOL, VITAD, IRON #### [facility] [address] [place] [address] Dr. Ekta Funk FOLATE 10.30 ng/mL Normal 8.60-58.90 [facility] Comment on above: Performed By: #### B 12FOL, VITAD, IRON #### [facility] [address] [place] [address] Dr. Ekta Funk VITAMIN D 25 OHon 01-10-2023 VIT D 25-OH 24.0 ng/mL Normal [facility] Comment on above: Performed By: #### B 12FOL, VITAD, IRON #### [facility] [address] [place] [address] Dr. Ekta Funk VIT D RANGES SEE BELOW Normal [facility] Comment on above: Result Comment: <20 ng/mL Vit D deficient 20 - <30 ng/mL Vit D insufficient 30 - 100 ng/mL Vit D sufficient >100 ng/mL Potential Toxicity Performed By: #### B 12FOL, VITAD, IRON #### [facility] [address] [address] [address] Ekta Funk Office Visiton 12-15-2022 Follow-up visit [id number] Sheila Mac 1950 F Date Provider Department Center 12/15/2022 [id number] MOHAN [facility] No family history on file Level of Service:43535 [place] OFFICE/OUTPATIENT ESTABLISHED MOD MDM 30-39 MIN Reason for Visit and Comments: Follow-up [174496] - Is here f/u stress test pt states she had Bruises all over both legs symptoms stated a week ago also stated legs are swollen and burning Normal [facility] NM STRESS/REST MULTIon 12-05 NM STRESS/REST MULTI Patient: SHEILA MAC Exam Date: 12/05/2022 : 1950 Gender:F Ordering : DR KRZYSZTOF HARP . Admission #: [id number] Family : Order #: [id number] CLICK HERE TO VIEW EXAM RADIOLOGY REPORT [...] Marie M.D. on 12/06/2022 at 07:26 Normal [facility] ECHOCARDIO M/2D COMPLETEon 0 11-27-2022 ECHOCARDIO M/2D COMPLETE Patient: SHEILA MAC Exam Date: 11/27/2022 : 1950 Gender:F Ordering : DR KRZYSZTOF HARP . Admission #: [id number] Family : Order #: [id number] CLICK HERE TO VIEW EXAM ECHOCARDIOGRAM REPORT [...] M.D. on 11/27/2022 at 14:39 Normal [facility] CBC AUTO DIFFon 11-26-2022 BASO # 0.0 103/ul Normal 0.0-0.1 [facility] Comment on above: Performed By: #### I NSULIN #### [facility] [address] [place] [address] Dr. Ekta Funk Basophils/100 WBC (Bld) 0.6 % Normal 0.2-2.0 [facility] Comment on above: Performed By: #### I NSULIN #### [facility] [address] [place] [address] Dr. Ekta Funk EO # 0.3 103/ul Normal 0.0-0.7 [facility] Comment on above: Performed By: #### I NSULIN #### [facility] [address] [place] [address] Dr. Ekta Funk Eosinophils/100 WBC (Bld) 4.8 % Normal 0.9-7.0 [facility] Comment on above: Performed By: #### I NSULIN #### [facility] [address] [place] [address] Dr. Ekta Funk Erythrocyte distribution width (RBC) [Ratio] 13.3 % Normal 11.0-15.0 [facility] Comment on above: Performed By: #### I NSULIN #### [facility] [address] [place] [address] Dr. Ekta Funk Hematocrit (Bld) [Volume fraction] 29.1 % Critically low 36.0-48.0 [facility] Comment on above: Performed By: #### I NSULIN #### [facility] [address] [place] [address] Dr. Ekta Funk Hemoglobin (Bld) [Mass/Vol] 9.5 g/dL Critically low 12.0-16.0 [facility] Comment on above: Performed By: #### I NSULIN #### [facility] [address] [place] [address] Dr. Ekta Funk IG # 0.07 10e3/ul Critically high 0.00-0.03 [facility] Comment on above: Performed By: #### I NSULIN #### [facility] [address] [place] [address] Dr. Ekta Funk IG % 1.0 % Critically high 0.0-0.5 [facility] Comment on above: Performed By: #### I NSULIN #### [facility] [address] [place] [address] Dr. Ekta Funk LYMPH # 1.2 103/ul Normal 1.2-3.8 [facility] Comment on above: Performed By: #### I NSULIN #### [facility] [address] [place] [address] Dr. Ekta Funk Lymphocytes/100 WBC (Bld) 17.2 % Critically low 20.5-60.0 [facility] Comment on above: Performed By: #### I NSULIN #### [facility] [address] [place] [address] Dr. Ekta Funk MANUAL DIFF REQ NO Normal [facility] Comment on above: Performed By: #### I NSULIN #### [facility] [address] [place] [address] Dr. Ekta Funk MCH (RBC) [Entitic mass] 31.7 pg Normal 26.7-34.0 [facility] Comment on above: Performed By: #### I NSULIN #### [facility] [address] [place] [address] Dr. Ekta Funk MCHC (RBC) [Mass/Vol] 32.6 g/dL Normal 29.9-35.2 [facility] Comment on above: Performed By: #### I NSULIN #### [facility] [address] [place] [address] Dr. Ekta Funk MCV (RBC) [Entitic vol] 97.0 fL Normal 81.0-99.0 [facility] Comment on above: Performed By: #### I NSULIN #### [facility] [address] [place] [address] Dr. Ekta Funk MONO # 0.8 103/ul Normal 0.3-0.8 [facility] Comment on above: Performed By: #### I NSULIN #### [facility] [address] [place] [address] Dr. Ekta Funk Monocytes/100 WBC (Bld) 11.1 % Normal 1.7-12.0 [facility] Comment on above: Performed By: #### I NSULIN #### [facility] [address] [place] [address] Dr. Ekta Funk NEUT # 4.5 103/ul Normal 1.4-6.5 [facility] Comment on above: Performed By: #### I NSULIN #### [facility] [address] [place] [address] Dr. Ekta Funk Neutrophils/100 WBC (Bld) 65.3 % Normal 43.0-75.0 [facility] Comment on above: Performed By: #### I NSULIN #### [facility] [address] [place] [address] Dr. Ekta Funk Platelet mean volume (Bld) [Entitic vol] 9.4 fL Critically low 9.5-13.5 [facility] Comment on above: Performed By: #### I NSULIN #### [facility] [address] [place] [address] Dr. Ekta Funk PLT 263 103/ul Normal 150-450 [facility] Comment on above: Performed By: #### I NSULIN #### [facility] [address] [place] [address] Dr. Ekta Funk RBC 3.00 106/ul Critically low 4.20-5.40 [facility] Comment on above: Performed By: #### I NSULIN #### [facility] [address] [place] [address] Dr. Ekta Funk WBC 6.9 103/ul Normal 4.0-11.0 [facility] Comment on above: Performed By: #### I NSULIN #### [facility] [address] [place] [address] Dr. Ekta Funk PROF 14(COMP METB)on 023 Albumin [Mass/Vol] 2.2 g/dL Critically low 3.4-5.0 [facility] Comment on above: Performed By: #### C MP #### [facility] [address] [place] [address] Dr. Ekta Fnuk Albumin/Globulin [Mass ratio] 0.6 {ratio} Normal [facility] Comment on above: Performed By: #### C MP #### [facility] [address] [place] [address] Dr. Ekta Funk ALP [Catalytic activity/Vol] 82 U/L Normal 46-116 [facility] Comment on above: Performed By: #### C MP #### [facility] [address] [place] [address] Dr. Ekta Funk ALT [Catalytic activity/Vol] 13 U/L Critically low 14-59 [facility] Comment on above: Performed By: #### C MP #### [facility] [address] [place] [address] Dr. Ekta Funk Anion gap [Moles/Vol] 14.0 mmol/L Normal [facility] Comment on above: Performed By: #### C MP #### [facility] [address] [place] [address] Dr. Ekta Funk AST [Catalytic activity/Vol] 18 U/L Normal 15-37 [facility] Comment on above: Performed By: #### C MP #### [facility] [address] [place] [address] Dr. Ekta Funk Bilirubin [Mass/Vol] 0.4 mg/dL Normal 0.2-1.0 [facility] Comment on above: Performed By: #### C MP #### [facility] [address] [place] [address] Dr. Ekta Funk Calcium [Mass/Vol] 8.6 mg/dL Normal 8.5-10.1 [facility] Comment on above: Performed By: #### C MP #### [facility] [address] [place] [address] Dr. Ekta Funk Chloride [Moles/Vol] 108 mmol/L Critically high 98-107 [facility] Comment on above: Performed By: #### C MP #### [facility] [address] [place] [address] Dr. Ekta Funk CO2 [Moles/Vol] 19.6 mmol/L Critically low 21.0-32.0 [facility] Comment on above: Performed By: #### C MP #### [facility] [address] [address] [address] Ekta Funk Creatinine [Mass/Vol] 1.70 mg/dL Critically high 0.55-1.02 [facility] Comment on above: Performed By: #### C MP #### [facility] [address] [place] [address] Dr. Ekta Funk EGFR-AF [place] 36 mL/min/1.73m2 Critically low >=60 [facility] Comment on above: Performed By: #### C MP #### [facility] [address] [place] [address] Dr. Ekta Funk EGFR-NON AF [place] 29 mL/min/1.73m2 Critically low >=60 [facility] Comment on above: Performed By: #### C MP #### [facility] [address] [place] [address] Dr. Ekta Funk Globulin (S) [Mass/Vol] 3.6 g/dL Normal [facility] Comment on above: Performed By: #### C MP #### [facility] [address] [address] [address] Ekta Funk Glucose [Mass/Vol] 103 mg/dL Normal 74-106 [facility] Comment on above: Performed By: #### C MP #### [facility] [address] [address] [address] Ekta Funk Potassium [Moles/Vol] 4.6 mmol/L Normal 3.5-5.1 [facility] Comment on above: Performed By: #### C MP #### [facility] [address] [place] [address] Dr. Ekta Funk Protein [Mass/Vol] 5.8 g/dL Critically low 6.4-8.2 Th [facility] Comment on above: Performed By: #### C MP #### [facility] [address] [place] [address] Dr. Ekta Funk Sodium [Moles/Vol] 137 mmol/L Normal 136-145 [facility] Comment on above: Performed By: #### C MP #### [facility] [address] [place] [address] Dr. Ekta Funk Urea nitrogen [Mass/Vol] 26.0 mg/dL Critically high 7.0-18.0 [facility] Comment on above: Performed By: #### C MP #### [facility] [address] [place] [address] Dr. Ekta Funk Urea nitrogen/Creatinine [Mass ratio] 15.3 mg/mg Normal [facility] Comment on above: Performed By: #### C MP #### [facility] [address] [place] [address] Dr. Ekta Funk CBC AUTO DIFFon 11-25-2022 BASO # 0.1 103/ul Normal 0.0-0.1 [facility] Comment on above: Performed By: #### C BC #### [facility] [address] [place] [address] Dr. Ekta Funk Basophils/100 WBC (Bld) 0.7 % Normal 0.2-2.0 [facility] Comment on above: Performed By: #### C BC #### [facility] [address] [place] [address] Dr. Ekta Funk EO # 0.3 103/ul Normal 0.0-0.7 [facility] Comment on above: Performed By: #### C BC #### [facility] [address] [place] [address] Dr. Ekta Funk Eosinophils/100 WBC (Bld) 3.4 % Normal 0.9-7.0 [facility] Comment on above: Performed By: #### C BC #### [facility] [address] [place] [address] Dr. Ekta Funk Erythrocyte distribution width (RBC) [Ratio] 13.6 % Normal 11.0-15.0 [facility] Comment on above: Performed By: #### C BC #### [facility] [address] [place] [address] Dr. Ekta Funk Hematocrit (Bld) [Volume fraction] 32.1 % Critically low 36.0-48.0 [facility] Comment on above: Performed By: #### C BC #### [facility] [address] [place] [address] Dr. Ekta Funk Hemoglobin (Bld) [Mass/Vol] 10.3 g/dL Critically low 12.0-16.0 [facility] Comment on above: Performed By: #### C BC #### [facility] [address] [place] [address] Dr. Ekta Funk IG # 0.08 10e3/ul Critically high 0.00-0.03 [facility] Comment on above: Performed By: #### C BC #### [facility] [address] [place] [address] Dr. Ekta Funk IG % 0.9 % Critically high 0.0-0.5 [facility] Comment on above: Performed By: #### C BC #### [facility] [address] [place] [address] Dr. Ekta Funk LYMPH # 0.9 103/ul Critically low 1.2-3.8 [facility] Comment on above: Performed By: #### C BC #### [facility] [address] [place] [address] Dr. Ekta Funk Lymphocytes/100 WBC (Bld) 10.7 % Critically low 20.5-60.0 [facility] Comment on above: Performed By: #### C BC #### [facility] [address] [place] [address] Dr. Ekta Funk MANUAL DIFF REQ NO Normal [facility] Comment on above: Performed By: #### C BC #### [facility] [address] [place] [address] Dr. Ekta Funk MCH (RBC) [Entitic mass] 32.2 pg Normal 26.7-34.0 [facility] Comment on above: Performed By: #### C BC #### [facility] [address] [address] [address] Ekta Funk MCHC (RBC) [Mass/Vol] 32.1 g/dL Normal 29.9-35.2 [facility] Comment on above: Performed By: #### C BC #### [facility] [address] [address] [address] Ekta Funk MCV (RBC) [Entitic vol] 100.3 fL Critically high 81.0-99.0 [facility] Comment on above: Performed By: #### C BC #### [facility] [address] [place] [address] Dr. Ekta Funk MONO # 0.9 103/ul Critically high 0.3-0.8 [facility] Comment on above: Performed By: #### C BC #### [facility] [address] [place] [address] Dr. Ekta Funk Monocytes/100 WBC (Bld) 9.9 % Normal 1.7-12.0 [facility] Comment on above: Performed By: #### C BC #### [facility] [address] [place] [address] Dr. Ekta Funk NEUT # 6.4 103/ul Normal 1.4-6.5 [facility] Comment on above: Performed By: #### C BC #### [facility] [address] [place] [address] Dr. Ekta Funk Neutrophils/100 WBC (Bld) 74.4 % Normal 43.0-75.0 [facility] Comment on above: Performed By: #### C BC #### [facility] [address] [place] [address] Dr. Ekta Funk Platelet mean volume (Bld) [Entitic vol] 9.5 fL Normal 9.5-13.5 [facility] Comment on above: Performed By: #### C BC #### [facility] [address] [place] [address] Dr. Ekta Funk PLT 267 103/ul Normal 150-450 [facility] Comment on above: Performed By: #### C BC #### [facility] [address] [address] [address] Ekta Funk RBC 3.20 106/ul Critically low 4.20-5.40 [facility] Comment on above: Performed By: #### C BC #### [facility] [address] [address] [address] Ekta Funk WBC 8.6 103/ul Normal 4.0-11.0 [facility] Comment on above: Performed By: #### C BC #### [facility] [address] [address] [address] Ekta Funk BASO # 0.1 103/ul Normal 0.0-0.1 [facility] Comment on above: Performed By: #### C MP #### [facility] [address] [place] [address] Dr. Ekta Funk Basophils/100 WBC (Bld) 0.7 % Normal 0.2-2.0 [facility] Comment on above: Performed By: #### C MP #### [facility] [address] [place] [address] Dr. Ekta Funk EO # 0.3 103/ul Normal 0.0-0.7 [facility] Comment on above: Performed By: #### C MP #### [facility] [address] [place] [address] Dr. Ekta Funk Eosinophils/100 WBC (Bld) 3.9 % Normal 0.9-7.0 [facility] Comment on above: Performed By: #### C MP #### [facility] [address] [place] [address] Dr. Ekta Funk Erythrocyte distribution width (RBC) [Ratio] 13.2 % Normal 11.0-15.0 [facility] Comment on above: Performed By: #### C MP #### [facility] [address] [place] [address] Dr. Ekta Funk Hematocrit (Bld) [Volume fraction] 28.0 % Critically low 36.0-48.0 [facility] Comment on above: Performed By: #### C MP #### [facility] [address] [address] [address] Ekta Funk Hemoglobin (Bld) [Mass/Vol] 9.3 g/dL Critically low 12.0-16.0 [facility] Comment on above: Performed By: #### C MP #### [facility] [address] [address] [address] Ekta Funk IG # 0.08 10e3/ul Critically high 0.00-0.03 [facility] Comment on above: Performed By: #### C MP #### [facility] [address] [address] [address] Ekta Funk IG % 1.1 % Critically high 0.0-0.5 [facility] Comment on above: Performed By: #### C MP #### [facility] [address] [place] [address] Dr. Ekta Funk LYMPH # 0.9 103/ul Critically low 1.2-3.8 [facility] Comment on above: Performed By: #### C MP #### [facility] [address] [address] [address] Ekta Funk Lymphocytes/100 WBC (Bld) 12.1 % Critically low 20.5-60.0 [facility] Comment on above: Performed By: #### C MP #### [facility] [address] [place] [address] Dr. Ekta Funk MANUAL DIFF REQ NO Normal [facility] Comment on above: Performed By: #### C MP #### [facility] [address] [address] [address] Ekta Funk MCH (RBC) [Entitic mass] 32.0 pg Normal 26.7-34.0 [facility] Comment on above: Performed By: #### C MP #### [facility] [address] [address] [address] Ekta Funk MCHC (RBC) [Mass/Vol] 33.2 g/dL Normal 29.9-35.2 [facility] Comment on above: Performed By: #### C MP #### [facility] [address] [address] [address] Ekta Funk MCV (RBC) [Entitic vol] 96.2 fL Normal 81.0-99.0 [facility] Comment on above: Performed By: #### C MP #### [facility] [address] [address] [address] Ekta Funk MONO # 0.7 103/ul Normal 0.3-0.8 [facility] Comment on above: Performed By: #### C MP #### [facility] [address] [address] [address] Ekta Funk Monocytes/100 WBC (Bld) 9.8 % Normal 1.7-12.0 [facility] Comment on above: Performed By: #### C MP #### [facility] [address] [address] [address] Ekta Funk NEUT # 5.2 103/ul Normal 1.4-6.5 [facility] Comment on above: Performed By: #### C MP #### [facility] [address] [address] [address] Ekta Funk Neutrophils/100 WBC (Bld) 72.4 % Normal 43.0-75.0 [facility] Comment on above: Performed By: #### C MP #### [facility] [address] [address] [address] Ekta Funk Platelet mean volume (Bld) [Entitic vol] 9.4 fL Critically low 9.5-13.5 [facility] Comment on above: Performed By: #### C MP #### [facility] [address] [address] [address] Ekta Funk PLT 250 103/ul Normal 150-450 [facility] Comment on above: Performed By: #### C MP #### [facility] [address] [address] [address] Ekta Funk RBC 2.91 106/ul Critically low 4.20-5.40 [facility] Comment on above: Performed By: #### C MP #### [facility] [address] [place] [address] Dr. Ekta Funk WBC 7.2 103/ul Normal 4.0-11.0 [facility] Comment on above: Performed By: #### C MP #### [facility] [address] [place] [address] Dr. Ekta Funk PROF 14(COMP METB)on 023 Albumin [Mass/Vol] 2.1 g/dL Critically low 3.4-5.0 [facility] Comment on above: Performed By: #### C MP #### [facility] [address] [place] [address] Dr. Ekta Funk Albumin/Globulin [Mass ratio] 0.6 {ratio} Normal [facility] Comment on above: Performed By: #### C MP #### [facility] [address] [place] [address] Dr. Ekta Funk ALP [Catalytic activity/Vol] 68 U/L Normal 46-116 [facility] Comment on above: Performed By: #### C MP #### [facility] [address] [place] [address] Dr. Ekta Funk ALT [Catalytic activity/Vol] 14 U/L Normal 14-59 [facility] Comment on above: Performed By: #### C MP #### [facility] [address] [place] [address] Dr. Ekta Funk Anion gap [Moles/Vol] 12.9 mmol/L Normal [facility] Comment on above: Performed By: #### C MP #### [facility] [address] [place] [address] Dr. Ekta Funk AST [Catalytic activity/Vol] 14 U/L Critically low 15-37 [facility] Comment on above: Performed By: #### C MP #### [facility] [address] [place] [address] Dr. Ekta Funk Bilirubin [Mass/Vol] 0.3 mg/dL Normal 0.2-1.0 [facility] Comment on above: Performed By: #### C MP #### [facility] [address] [place] [address] Dr. Ekta Funk Calcium [Mass/Vol] 8.3 mg/dL Critically low 8.5-10.1 Th [facility] Comment on above: Performed By: #### C MP #### [facility] [address] [place] [address] Dr. Ekta Funk Chloride [Moles/Vol] 109 mmol/L Critically high 98-107 [facility] Comment on above: Performed By: #### C MP #### [facility] [address] [address] [address] Ekta Funk CO2 [Moles/Vol] 19.3 mmol/L Critically low 21.0-32.0 [facility] Comment on above: Performed By: #### C MP #### [facility] [address] [place] [address] Dr. Ekta Funk Creatinine [Mass/Vol] 1.54 mg/dL Critically high 0.55-1.02 [facility] Comment on above: Performed By: #### C MP #### [facility] [address] [place] [address] Dr. Ekta Funk EGFR-AF KUWAITI 40 mL/min/1.73m2 Critically low >=60 [facility] Comment on above: Performed By: #### C MP #### [facility] [address] [place] [address] Dr. Ekta Funk EGFR-NON AF [place]I 33 mL/min/1.73m2 Critically low >=60 [facility] Comment on above: Performed By: #### C MP #### [facility] [address] [place] [address] Dr. Ekta Funk Globulin (S) [Mass/Vol] 3.7 g/dL Normal [facility] Comment on above: Performed By: #### C MP #### [facility] [address] [place] [address] Dr. Ekta Funk Glucose [Mass/Vol] 117 mg/dL Critically high 74-[address] [facility] Comment on above: Performed By: #### C MP #### [facility] [address] [place] [address] Dr. Ekta Funk Potassium [Moles/Vol] 4.2 mmol/L Normal 3.5-5.1 [facility] Comment on above: Performed By: #### C MP #### [facility] [address] [address] [address] Ekta Funk Protein [Mass/Vol] 5.8 g/dL Critically low 6.4-8.2 Th [facility] Comment on above: Performed By: #### C MP #### [facility] [address] [address] [address] Ekta Funk Sodium [Moles/Vol] 137 mmol/L Normal 136-145 [facility] Comment on above: Performed By: #### C MP #### [facility] [address] [place] [address] Dr. Ekta Funk Urea nitrogen [Mass/Vol] 27.0 mg/dL Critically high 7.0-18.0 [facility] Comment on above: Performed By: #### C MP #### [facility] [address] [address] [address] Ekta Funk Urea nitrogen/Creatinine [Mass ratio] 17.5 mg/mg Normal [facility] Comment on above: Performed By: #### C MP #### [facility] [address] [place] [address] Dr. Ekta Funk AMMONIAon 11-24-2022 Ammonia (P) [Moles/Vol] 13 umol/L Normal 11-32 [facility] Comment on above: Performed By: #### C VDTB #### [facility] [address] [place] [address] Dr. Ekta Funk CBC AUTO DIFFon 11-24-2022 BASO # 0.0 103/ul Normal 0.0-0.1 [facility] Comment on above: Performed By: #### C MP #### [facility] [address] [place] [address] Dr. Ekta Funk Basophils/100 WBC (Bld) 0.4 % Normal 0.2-2.0 [facility] Comment on above: Performed By: #### C MP #### [facility] [address] [address] [address] Ekta Funk EO # 0.4 103/ul Normal 0.0-0.7 [facility] Comment on above: Performed By: #### C MP #### [facility] [address] [address] [address] Ekta Funk Eosinophils/100 WBC (Bld) 3.8 % Normal 0.9-7.0 [facility] Comment on above: Performed By: #### C MP #### [facility] [address] [place] [address] Dr. Ekta Funk Erythrocyte distribution width (RBC) [Ratio] 13.2 % Normal 11.0-15.0 [facility] Comment on above: Performed By: #### C MP #### [facility] [address] [place] [address] Dr. Ekta Funk Hematocrit (Bld) [Volume fraction] 34.0 % Critically low 36.0-48.0 [facility] Comment on above: Performed By: #### C MP #### [facility] [address] [place] [address] Dr. Ekta Funk Hemoglobin (Bld) [Mass/Vol] 11.5 g/dL Critically low 12.0-16.0 [facility] Comment on above: Performed By: #### C MP #### [facility] [address] [place] [address] Dr. Ekta Funk IG # 0.11 10e3/ul Critically high 0.00-0.03 [facility] Comment on above: Performed By: #### C MP #### [facility] [address] [place] [address] Dr. Ekta Funk IG % 1.2 % Critically high 0.0-0.5 [facility] Comment on above: Performed By: #### C MP #### [facility] [address] [place] [address] Dr. Ekta Funk LYMPH # 1.4 103/ul Normal 1.2-3.8 [facility] Comment on above: Performed By: #### C MP #### [facility] [address] [place] [address] Dr. Ekta Funk Lymphocytes/100 WBC (Bld) 14.9 % Critically low 20.5-60.0 [facility] Comment on above: Performed By: #### C MP #### [facility] [address] [place] [address] Dr. Ekta Funk MANUAL DIFF REQ NO Normal [facility] Comment on above: Performed By: #### C MP #### [facility] [address] [place] [address] Dr. Ekta Funk MCH (RBC) [Entitic mass] 32.5 pg Normal 26.7-34.0 [facility] Comment on above: Performed By: #### C MP #### [facility] [address] [place] [address] Dr. Ekta Funk MCHC (RBC) [Mass/Vol] 33.8 g/dL Normal 29.9-35.2 [facility] Comment on above: Performed By: #### C MP #### [facility] [address] [place] [address] Dr. Ekta Funk MCV (RBC) [Entitic vol] 96.0 fL Normal 81.0-99.0 [facility] Comment on above: Performed By: #### C MP #### [facility] [address] [place] [address] Dr. Ekta Funk MONO # 0.9 103/ul Critically high 0.3-0.8 [facility] Comment on above: Performed By: #### C MP #### [facility] [address] [place] [address] Dr. Ekta Funk Monocytes/100 WBC (Bld) 9.7 % Normal 1.7-12.0 [facility] Comment on above: Performed By: #### C MP #### [facility] [address] [place] [address] Dr. Ekta Funk NEUT # 6.4 103/ul Normal 1.4-6.5 [facility] Comment on above: Performed By: #### C MP #### [facility] [address] [place] [address] Dr. Ekta Funk Neutrophils/100 WBC (Bld) 70.0 % Normal 43.0-75.0 [facility] Comment on above: Performed By: #### C MP #### [facility] [address] [address] [address] Ekta Funk Platelet mean volume (Bld) [Entitic vol] 9.3 fL Critically low 9.5-13.5 [facility] Comment on above: Performed By: #### C MP #### [facility] [address] [place] [address] Dr. Ekta Funk PLT 308 103/ul Normal 150-450 [facility] Comment on above: Performed By: #### C MP #### [facility] [address] [place] [address] Dr. Ekta Funk RBC 3.54 106/ul Critically low 4.20-5.40 [facility] Comment on above: Performed By: #### C MP #### [facility] [address] [place] [address] Dr. Ekta Funk WBC 9.1 103/ul Normal 4.0-11.0 [facility] Comment on above: Performed By: #### C MP #### [facility] [address] [place] [address] Dr. Ekta Funk CPKon 11-24-2022 CK [Catalytic activity/Vol] 21 U/L Critically low 26-192 [facility] Comment on above: Performed By: #### B 12FOL, VITAD, IRON #### [facility] [address] [place] [address] STROKE HEAD WOon [...] by: VANESSA PARADA Date: 2022-11-24 11:09 Normal [facility] CTA HEAD WO W CONon 11-25-19 23 [...] DANIEL MARIE Date: 2022-11-24 12:41 Normal [facility] CULTURE URINEon 11-24-2022 CULTURE URINE Culture Observations : NO GROWTH. Normal [facility] Comment on above: Performed By: #### I NSULIN #### [facility] [address] [place] [address] Dr. Ekta Funk Covid-19 PCR (CVDTB)on 11-08 SARS-CoV-2 (COVID-19) RNA GANESH+probe Ql (Unsp spec) Not detected Normal NOT DETECTED [facility] Comment on above: Result Comment: [...] for this test is supported by the [place] of [employer] and Human Service's declaration that [...] used). Performed By: #### C VDTBH #### [facility] [address] [place] [address] Dr. Ekta LEHMAN URINE PROFILEon 3 Bilirubin Ql (U) Negative Normal NEGATIVE [facility] Comment on above: Performed By: #### C BC #### [facility] [address] [place] [address] Dr. Ekta Funk Clarity (U) CLEAR Normal CLEAR [facility] Comment on above: Performed By: #### C BC #### [facility] [address] [place] [address] Dr. Ekta Funk Color (U) LT. YELLOW Normal YELLOW [facility] Comment on above: Performed By: #### C BC #### [facility] [address] [place] [address] Dr. Ekta COLÓN A micrscopic examination will be performed if indicated. Normal [facility] Comment on above: Performed By: #### C BC #### [facility] [address] [place] [address] Dr. Ekta Funk Glucose Ql (U) Negative Normal NEGATIVE [facility] Comment on above: Performed By: #### C BC #### [facility] [address] [place] [address] Dr. Ekta Funk Hemoglobin Ql (U) Negative Normal NEGATIVE [facility] Comment on above: Performed By: #### C BC #### [facility] [address] [place] [address] Dr. Ekta Funk Ketones Ql (U) Negative Normal NEGATIVE [facility] Comment on above: Performed By: #### C BC #### [facility] [address] [place] [address] Dr. Ekta Funk LEUKOCYTES Negative Normal NEGATIVE [facility] Comment on above: Performed By: #### C BC #### [facility] [address] [place] [address] Dr. Ekta Funk Nitrite Ql (U) Negative Normal NEGATIVE [facility] Comment on above: Performed By: #### C BC #### [facility] [address] [place] [address] Dr. Ekta Funk pH (U) 5.5 [pH] Normal 5-9 [facility] Comment on above: Performed By: #### C BC #### [facility] [address] [address] [address] Ekta Funk SPEC GRAVITY 1.020 Normal 1.005-<=1.025 [facility] Comment on above: Performed By: #### C BC #### [facility] [address] [address] [address] Ekta Funk UA PROTEIN Negative Normal NEGATIVE/ TRACE [facility] Comment on above: Performed By: #### C BC #### [facility] [address] [address] [address] Ekta Funk UR MICRO IND NOT INDICATED Normal [facility] Comment on above: Performed By: #### C BC #### [facility] [address] [place] [address] Dr. Ekta Funk Urobilinogen Qn (U) 0.2 {Ivan'U}/dL Normal 0.2 - 1. 0 [facility] Comment on above: Performed By: #### C BC #### [facility] [address] [place] [address] Dr. Ekta Funk GLYCOHEMOGLOBIN A1Con 2022 ADA RECOMMENDATION SEE BELOW Normal [facility] Comment on above: Result Comment: ADA RECOMMENDED LIMIT 4.0 - 6.0 ADA THERAPEUTIC TARGET < 7.0 ACTION SUGGESTED > 7.0 Performed By: #### B 12FOL, VITAD, IRON #### [facility] [address] [place] [address] Dr. Ekta Funk Glucose [Mass/Vol] 143 mg/dL Normal [facility] Comment on above: Performed By: #### B 12FOL, VITAD, IRON #### [facility] [facility] [address] [place] [address] Dr. Ekta Funk HbA1c (Bld) [Mass fraction] 6.6 % Critically high 4.5-6.2 [facility] Comment on above: Performed By: #### B 12FOL, VITAD, IRON #### [facility] [address] [address] [address] Ekta Funk LACTATE/LACTIC ACIDon 2022 Lactate [Moles/Vol] 1.6 mmol/L Normal 0.4-2.0 [facility] Comment on above: Performed By: #### C MP #### [facility] [address] [address] [address] Ekta Funk Lactate [Moles/Vol] 2.1 mmol/L Critically high 0.4-2.0 [facility] Comment on above: Performed By: #### B 12FOL, VITAD, IRON #### [facility] [address] [address] [address] Ekta Funk LIPASEon 11-24-2022 Lipase [Catalytic activity/Vol] 165.0 U/L Normal 73.0-393.0 [facility] Comment on above: Performed By: #### B 12FOL, VITAD, IRON #### [facility] [address] [address] [address] Ekta Funk LIPID PROFILEon 11-24-2022 CHOL-HDL RATIO NORM SEE BELOW Normal [facility] Comment on above: Result Comment: 3.3 - 4.4 LOW RISK 4.4 - 7.1 AVERAGE RISK 7.1 - 11.0 MODERATE RISK >11.0 HIGH RISK Performed By: #### B 12FOL, VITAD, IRON #### [facility] [address] [address] [address] Ekta Funk Cholesterol [Mass/Vol] 248 mg/dL Critically high <=200 [facility] Comment on above: Performed By: #### B 12FOL, VITAD, IRON #### [facility] [address] [address] [address] Ekta Funk Cholesterol in HDL [Mass/Vol] 58 mg/dL Normal 40-60 [facility] Comment on above: Performed By: #### B 12FOL, VITAD, IRON #### [facility] [address] [address] [address] Ekta Funk Cholesterol in LDL [Mass/Vol] 165.6 mg/dL Normal [facility] Comment on above: Performed By: #### B 12FOL, VITAD, IRON #### [facility] [address] [address] [address] Ekta Funk Cholesterol.total/Ch olesterol in HDL [Mass ratio] 4.3 {ratio} Normal [facility] Comment on above: Performed By: #### B 12FOL, VITAD, IRON #### [facility] [address] [address] [address] Ekta Funk HDL NORMAL > or = 60 mg/dl - LO W CARDIOVASCULAR RISK <40 mg/dl - HIGH CARDIOVASCULAR RISK Normal [facility] Comment on above: Performed By: #### B 12FOL, VITAD, IRON #### [facility] [address] [address] [address] Ekta Funk LDL CALC NORMAL SEE BELOW Normal [facility] Comment on above: Result Comment: <100 mg/dl OPTIMAL 100 - 129 mg/dl NEAR OR ABOVE OPTIMAL 130 - 159 mg/dl BORDERLINE HIGH 160 - 189 mg/dl HIGH >190 mg/dl VERY HIGH Performed By: #### B 12FOL, VITAD, IRON #### [facility] [address] [address] [address] Ekta Funk Triglyceride [Mass/Vol] 122 mg/dL Normal <=150 [facility] Comment on above: Performed By: #### B 12FOL, VITAD, IRON #### [facility] [address] [address] [address] Ekta Funk VLDL CALC 24.4 mg/dL Normal [facility] Comment on above: Performed By: #### B 12FOL, VITAD, IRON #### [facility] [address] [address] [address] Ekta Funk MRI BRAIN WO CONon [...] RAVEN ELAINE Date: 2022-11-24 19:35 Normal [facility] PROF 14(COMP METB)on 023 Albumin [Mass/Vol] 2.7 g/dL Critically low 3.4-5.0 Th [facility] Comment on above: Performed By: #### B 12FOL, VITAD, IRON #### [facility] [address] [address] [address] Ekta Funk Albumin/Globulin [Mass ratio] 0.6 {ratio} Normal [facility] Comment on above: Performed By: #### B 12FOL, VITAD, IRON #### [facility] [address] [address] [address] Ekta Funk ALP [Catalytic activity/Vol] 85 U/L Normal 46-116 [facility] Comment on above: Performed By: #### B 12FOL, VITAD, IRON #### [facility] [address] [address] [address] Ekta Funk ALT [Catalytic activity/Vol] 18 U/L Normal 14-59 [facility] Comment on above: Performed By: #### B 12FOL, VITAD, IRON #### [facility] [address] [address] [address] Ekta Funk Anion gap [Moles/Vol] 18.9 mmol/L Normal [facility] Comment on above: Performed By: #### B 12FOL, VITAD, IRON #### [facility] [address] [place] [address] Dr. Ekta Funk AST [Catalytic activity/Vol] 16 U/L Normal 15-37 [facility] Comment on above: Performed By: #### B 12FOL, VITAD, IRON #### [facility] [address] [place] [address] Dr. Ekta Funk Bilirubin [Mass/Vol] 0.4 mg/dL Normal 0.2-1.0 [facility] Comment on above: Performed By: #### B 12FOL, VITAD, IRON #### [facility] [address] [place] [address] Dr. Ekta Funk Calcium [Mass/Vol] 9.5 mg/dL Normal 8.5-10.1 [facility] Comment on above: Performed By: #### B 12FOL, VITAD, IRON #### [facility] [address] [place] [address] Dr. Ekta Funk Chloride [Moles/Vol] 108 mmol/L Critically high 98-107 [facility] Comment on above: Performed By: #### B 12FOL, VITAD, IRON #### [facility] [address] [place] [address] Dr. Ekta Funk CO2 [Moles/Vol] 21.1 mmol/L Normal 21.0-32.0 [facility] Comment on above: Performed By: #### B 12FOL, VITAD, IRON #### [facility] [address] [place] [address] Dr. Ekta Funk Creatinine [Mass/Vol] 2.08 mg/dL Critically high 0.55-1.02 [facility] Comment on above: Performed By: #### B 12FOL, VITAD, IRON #### [facility] [address] [place] [address] Dr. Ekta Funk EGFR-AF KUWAITI 28 mL/min/1.73m2 Critically low >=60 [facility] Comment on above: Performed By: #### B 12FOL, VITAD, IRON #### [facility] [address] [address] [address] Ekta Funk EGFR-NON AF [place]I 23 mL/min/1.73m2 Critically low >=60 [facility] Comment on above: Performed By: #### B 12FOL, VITAD, IRON #### [facility] [address] [place] [address] Dr. Ekta Funk Globulin (S) [Mass/Vol] 4.6 g/dL Normal [facility] Comment on above: Performed By: #### B 12FOL, VITAD, IRON #### [facility] [address] [place] [address] Dr. Ekta Funk Glucose [Mass/Vol] 119 mg/dL Critically high 74-[address] [facility] Comment on above: Performed By: #### B 12FOL, VITAD, IRON #### [facility] [address] [place] [address] Dr. Ekta Funk Potassium [Moles/Vol] 5.0 mmol/L Normal 3.5-5.1 [facility] Comment on above: Performed By: #### B 12FOL, VITAD, IRON #### [facility] [address] [place] [address] Dr. Ekta Funk Protein [Mass/Vol] 7.3 g/dL Normal 6.4-8.2 [facility] Comment on above: Performed By: #### B 12FOL, VITAD, IRON #### [facility] [address] [place] [address] Dr. Ekta Funk Sodium [Moles/Vol] 143 mmol/L Normal 136-145 [facility] Comment on above: Performed By: #### B 12FOL, VITAD, IRON #### [facility] [address] [place] [address] Dr. Ekta Funk Urea nitrogen [Mass/Vol] 37.0 mg/dL Critically high 7.0-18.0 [facility] Comment on above: Performed By: #### B 12FOL, VITAD, IRON #### [facility] [address] [address] [address] Ekta Funk Urea nitrogen/Creatinine [Mass ratio] 17.8 mg/mg Normal [facility] Comment on above: Performed By: #### B CAROLYN LAUGHLIN, IRON #### [facility] [address] [place], [place] [address] Dr. Ekta Funk TROPONIN, HIGH SENSITIVITYon 11-24-2022 HSTROP 14.1 pg/mL Normal 4.0-51.3 [facility] Comment on above: Result Comment: CUT- OFF POINTS HAVE BEEN ESTABLISHED BASED ON THE FOURTH UNIVERSAL DEFINITIONS OF MYOCARDIAL INFARCTION. THE UPPER REFERENCE LIMIT (URL) OF TROPONIN, DEFINED THE 99TH PERCENTILE OF cTnI DISTRIBUTION IN A REFERENCE POPULATION, HAS BEEN CONFIRMED THE DECISION THRESHOLD FOR GA DIAGNOSIS. Performed By: #### B CAROLYN LAUGHLIN, IRON #### [facility] [address] [place] [address] Dr. Ekta Funk TSHon 11-24-2022 TSH 1.184 uIU/mL Normal 0.358-3.740 [facility] Comment on above: Performed By: #### B CAROLYN LAUGHLIN, IRON #### [facility] [address] [address] [address] Ekta Funk XR CHEST 1 Von [...] NATALIIA TATE Date: 2022-11-24 11:00 Normal [facility] BNPon 11-13-2022 Natriuretic peptide B (Bld) [Mass/Vol] 565.0 pg/mL Normal <=900.0 [facility] Comment on above: Performed By: #### I NSULIN #### [facility] [address] [address] [address] Ekta Funk CBC AUTO DIFFon 11-13-2022 BASO # 0.1 103/ul Normal 0.0-0.1 [facility] Comment on above: Performed By: #### C BC #### [facility] [address] [address] [address] Ekta Funk Basophils/100 WBC (Bld) 0.6 % Normal 0.2-2.0 [facility] Comment on above: Performed By: #### C BC #### [facility] [address] [place] [address] Dr. Ekta Funk EO # 0.4 103/ul Normal 0.0-0.7 [facility] Comment on above: Performed By: #### C BC #### [facility] [address] [place] [address] Dr. Ekta Funk Eosinophils/100 WBC (Bld) 3.7 % Normal 0.9-7.0 [facility] Comment on above: Performed By: #### C BC #### [facility] [address] [place] [address] Dr. Ekta Funk Erythrocyte distribution width (RBC) [Ratio] 13.2 % Normal 11.0-15.0 [facility] Comment on above: Performed By: #### C BC #### [facility] [address] [place] [address] Dr. Ekta Funk Hematocrit (Bld) [Volume fraction] 36.7 % Normal 36.0-48.0 [facility] Comment on above: Performed By: #### C BC #### [facility] [address] [place] [address] Dr. Ekta Funk Hemoglobin (Bld) [Mass/Vol] 12.4 g/dL Normal 12.0-16.0 [facility] Comment on above: Performed By: #### C BC #### [facility] [address] [place] [address] Dr. Ekta Funk IG # 0.10 10e3/ul Critically high 0.00-0.03 [facility] Comment on above: Performed By: #### C BC #### [facility] [address] [place] [address] Dr. Ekta Funk IG % 1.0 % Critically high 0.0-0.5 [facility] Comment on above: Performed By: #### C BC #### [facility] [address] [place] [address] Dr. Ekta Funk LYMPH # 1.5 103/ul Normal 1.2-3.8 [facility] Comment on above: Performed By: #### C BC #### [facility] [address] [place] [address] Dr. Ekta Funk Lymphocytes/100 WBC (Bld) 14.9 % Critically low 20.5-60.0 [facility] Comment on above: Performed By: #### C BC #### [facility] [address] [place] [address] Dr. Ekta Funk MANUAL DIFF REQ NO Normal [facility] Comment on above: Performed By: #### C BC #### [facility] [address] [place] [address] Dr. Ekta Funk MCH (RBC) [Entitic mass] 32.8 pg Normal 26.7-34.0 [facility] Comment on above: Performed By: #### C BC #### [facility] [address] [place] [address] Dr. Ekta Funk MCHC (RBC) [Mass/Vol] 33.8 g/dL Normal 29.9-35.2 [facility] Comment on above: Performed By: #### C BC #### [facility] [address] [place] [address] Dr. Ekta Funk MCV (RBC) [Entitic vol] 97.1 fL Normal 81.0-99.0 [facility] Comment on above: Performed By: #### C BC #### [facility] [address] [place] [address] Dr. Ekta Funk MONO # 0.8 103/ul Normal 0.3-0.8 [facility] Comment on above: Performed By: #### C BC #### [facility] [address] [address] [address] Ekta Funk Monocytes/100 WBC (Bld) 7.7 % Normal 1.7-12.0 [facility] Comment on above: Performed By: #### C BC #### [facility] [address] [address] [address] Ekta Funk NEUT # 7.3 103/ul Critically high 1.4-6.5 [facility] Comment on above: Performed By: #### C BC #### [facility] [address] [address] [address] Ekta Funk Neutrophils/100 WBC (Bld) 72.1 % Normal 43.0-75.0 [facility] Comment on above: Performed By: #### C BC #### [facility] [address] [place] [address] Dr. Ekta Funk Platelet mean volume (Bld) [Entitic vol] 9.4 fL Critically low 9.5-13.5 [facility] Comment on above: Performed By: #### C BC #### [facility] [address] [place] [address] Dr. Ekta Funk PLT 251 103/ul Normal 150-450 [facility] Comment on above: Performed By: #### C BC #### [facility] [address] [place] [address] Dr. Ekta Funk RBC 3.78 106/ul Critically low 4.20-5.40 [facility] Comment on above: Performed By: #### C BC #### [facility] [address] [place] [address] Dr. Ekta Funk WBC 10.1 103/ul Normal 4.0-11.0 [facility] Comment on above: Performed By: #### C BC #### [facility] [address] [place] [address] Dr. Ekta Funk FREE THYROXINE INDEX T7on FTI 2.73 Normal 1.30-4.50 [facility] Comment on above: Performed By: #### I NSULIN #### [facility] [address] [address] [address] Ekta Funk T3U 35.0 % Normal 30.0-39.0 [facility] Comment on above: Performed By: #### I NSULIN #### [facility] [address] [address] [address] Ekta Funk T4 [Mass/Vol] 7.80 ug/dL Normal 4.80-13.90 [facility] Comment on above: Performed By: #### I NSULIN #### [facility] [address] [address] [address] Ekta Funk GLYCOHEMOGLOBIN A1Con 2022 ADA RECOMMENDATION SEE BELOW Normal [facility] Comment on above: Result Comment: ADA RECOMMENDED LIMIT 4.0 - 6.0 ADA THERAPEUTIC TARGET < 7.0 ACTION SUGGESTED > 7.0 Performed By: #### B 12FOL, VITAD, IRON #### [facility] [address] [address] [address] Ekta Funk Glucose [Mass/Vol] 134 mg/dL Normal [facility] Comment on above: Performed By: #### B 12FOL, VITAD, IRON #### [facility] [address] [place] [address] Dr. Ekta Funk HbA1c (Bld) [Mass fraction] 6.3 % Critically high 4.5-6.2 [facility] Comment on above: Performed By: #### B 12FOL, VITAD, IRON #### [facility] [address] [address] [address] Ekta Funk IRONon 11-13-2022 Iron [Mass/Vol] 55.0 ug/dL Normal 50.0-170.0 [facility] Comment on above: Performed By: #### B 12FOL, VITAD, IRON #### [facility] [address] [place] [address] Dr. Ekta Funk LIPID PROFILEon 11-13-2022 CHOL-HDL RATIO NORM SEE BELOW Normal [facility] Comment on above: Result Comment: 3.3 - 4.4 LOW RISK 4.4 - 7.1 AVERAGE RISK 7.1 - 11.0 MODERATE RISK >11.0 HIGH RISK Performed By: #### I NSULIN #### [facility] [address] [address] [address] Ekta Funk Cholesterol [Mass/Vol] 294 mg/dL Critically high <=200 [facility] Comment on above: Performed By: #### I NSULIN #### [facility] [address] [address] [address] Ekta Funk Cholesterol in HDL [Mass/Vol] 64 mg/dL Critically high 40-60 [facility] Comment on above: Performed By: #### I NSULIN #### [facility] [address] [address] [address] Ekta Funk Cholesterol in LDL [Mass/Vol] 197.2 mg/dL Normal [facility] Comment on above: Performed By: #### I NSULIN #### [facility] [address] [address] [address] Ekta Funk Cholesterol.total/Ch olesterol in HDL [Mass ratio] 4.6 {ratio} Normal [facility] Comment on above: Performed By: #### I NSULIN #### [facility] [address] [address] [address] Ekta Funk HDL NORMAL > or = 60 mg/dl - LO W CARDIOVASCULAR RISK <40 mg/dl - HIGH CARDIOVASCULAR RISK Normal [facility] Comment on above: Performed By: #### I NSULIN #### [facility] [address] [address] [address] Ekta Funk LDL CALC NORMAL SEE BELOW Normal [facility] Comment on above: Result Comment: <100 mg/dl OPTIMAL 100 - 129 mg/dl NEAR OR ABOVE OPTIMAL 130 - 159 mg/dl BORDERLINE HIGH 160 - 189 mg/dl HIGH >190 mg/dl VERY HIGH Performed By: #### I NSULIN #### [facility] [address] [address] [address] Ekta Funk Triglyceride [Mass/Vol] 164 mg/dL Critically high <=150 [facility] Comment on above: Performed By: #### I NSULIN #### [facility] [address] [place] [address] Dr. Ekta Funk VLDL CALC 32.8 mg/dL Normal [facility] Comment on above: Performed By: #### I NSULIN #### [facility] [address] [place] [address] Dr. Ekta Funk PROF 14(COMP METB)on 023 Albumin [Mass/Vol] 3.0 g/dL Critically low 3.4-5.0 [facility] Comment on above: Performed By: #### I NSULIN #### [facility] [address] [place] [address] Dr. Ekta Funk Albumin/Globulin [Mass ratio] 0.6 {ratio} Normal [facility] Comment on above: Performed By: #### I NSULIN #### [facility] [address] [place] [address] Dr. Ekta Funk ALP [Catalytic activity/Vol] 92 U/L Normal 46-116 [facility] Comment on above: Performed By: #### I NSULIN #### [facility] [address] [place] [address] Dr. Ekta Funk ALT [Catalytic activity/Vol] 26 U/L Normal 14-59 [facility] Comment on above: Performed By: #### I NSULIN #### [facility] [address] [place] [address] Dr. Ekta Funk Anion gap [Moles/Vol] 16.2 mmol/L Normal [facility] Comment on above: Performed By: #### I NSULIN #### [facility] [address] [place] [address] Dr. Ekta Funk AST [Catalytic activity/Vol] 16 U/L Normal 15-37 [facility] Comment on above: Performed By: #### I NSULIN #### [facility] [address] [place] [address] Dr. Ekta Funk Bilirubin [Mass/Vol] 0.5 mg/dL Normal 0.2-1.0 [facility] Comment on above: Performed By: #### I NSULIN #### [facility] [address] [place], [place] [id number] Dr. Ekta Funk Calcium [Mass/Vol] 9.7 mg/dL Normal 8.5-10.1 [facility] Comment on above: Performed By: #### I NSULIN #### [facility] [address] [place] [address] Dr. Ekta Funk Chloride [Moles/Vol] 105 mmol/L Normal 98-107 [facility] Comment on above: Performed By: #### I NSULIN #### [facility] [address] [address] [address] Ekat Funk CO2 [Moles/Vol] 24.9 mmol/L Normal 21.0-32.0 [facility] Comment on above: Performed By: #### I NSULIN #### [facility] [address] [place] [address] Dr. Ekta Funk Creatinine [Mass/Vol] 2.18 mg/dL Critically high 0.55-1.02 [facility] Comment on above: Performed By: #### I NSULIN #### [facility] [address] [place] [address] Dr. Ekta Funk EGFR-AF KUWAITI 27 mL/min/1.73m2 Critically low >=60 [facility] Comment on above: Performed By: #### I NSULIN #### [facility] [address] [place] [address] Dr. Ekta Funk EGFR-NON AF [place]I 22 mL/min/1.73m2 Critically low >=60 [facility] Comment on above: Performed By: #### I NSULIN #### [facility] [address] [place] [address] Dr. Ekta Funk Globulin (S) [Mass/Vol] 4.7 g/dL Normal [facility] Comment on above: Performed By: #### I NSULIN #### [facility] [address] [place] [address] Dr. Ekta Funk Glucose [Mass/Vol] 114 mg/dL Critically high 74-[address] [facility] Comment on above: Performed By: #### I NSULIN #### [facility] [address] [place] [address] Dr. Ekta Funk Potassium [Moles/Vol] 5.1 mmol/L Normal 3.5-5.1 [facility] Comment on above: Performed By: #### I NSULIN #### [facility] [address] [address] [address] Ekta Funk Protein [Mass/Vol] 7.7 g/dL Normal 6.4-8.2 [facility] Comment on above: Performed By: #### I NSULIN #### [facility] [address] [address] [address] Ekta Funk Sodium [Moles/Vol] 141 mmol/L Normal 136-145 [facility] Comment on above: Performed By: #### I NSULIN #### [facility] [address] [address] [address] Ekta Funk Urea nitrogen [Mass/Vol] 51.0 mg/dL Critically high 7.0-18.0 [facility] Comment on above: Performed By: #### I NSULIN #### [facility] [address] [address] [address] Ekta Funk Urea nitrogen/Creatinine [Mass ratio] 23.4 mg/mg Normal [facility] Comment on above: Performed By: #### I NSULIN #### [facility] [address] [address] [address] Ekta Funk TSHon 11-13-2022 TSH 0.935 uIU/mL Normal 0.358-3.740 [facility] Comment on above: Performed By: #### I NSULIN #### [facility] [address] [place] [address] Dr. Ekta Funk XR CHEST 2 Von [...] GODWIN BECK Date: 2022-11-13 15:40 Normal [facility] PROF 14(COMP METB)on 023 Albumin [Mass/Vol] 3.0 g/dL Critically low 3.4-5.0 Th e [facility] Comment on above: Performed By: #### B 12FOL, VITAD, IRON #### [facility] [address] [place] [address] Dr. Ekta Funk Albumin/Globulin [Mass ratio] 0.7 {ratio} Normal [facility] Comment on above: Performed By: #### B 12FOL, VITAD, IRON #### [facility] [address] [place] [address] Dr. Ekta Funk ALP [Catalytic activity/Vol] 89 U/L Normal 46-116 [facility] Comment on above: Performed By: #### B 12FOL, VITAD, IRON #### [facility] [address] [place] [address] Dr. Ekta Funk ALT [Catalytic activity/Vol] 29 U/L Normal 14-59 [facility] Comment on above: Performed By: #### B 12FOL, VITAD, IRON #### [facility] [address] [place] [address] Dr. Ekta Funk Anion gap [Moles/Vol] 15.2 mmol/L Normal [facility] Comment on above: Performed By: #### B 12FOL, VITAD, IRON #### [facility] [address] [place] [address] Dr. Ekta Funk AST [Catalytic activity/Vol] 14 U/L Critically low 15-37 [facility] Comment on above: Performed By: #### B 12FOL, VITAD, IRON #### [facility] [address] [place] [address] Dr. Ekta Funk Bilirubin [Mass/Vol] 0.4 mg/dL Normal 0.2-1.0 [facility] Comment on above: Performed By: #### B 12FOL, VITAD, IRON #### [facility] [address] [place] [address] Dr. Ekta Funk Calcium [Mass/Vol] 9.1 mg/dL Normal 8.5-10.1 [facility] Comment on above: Performed By: #### B 12FOL, VITAD, IRON #### [facility] [address] [place] [address] Dr. Ekta Funk Chloride [Moles/Vol] 106 mmol/L Normal 98-107 [facility] Comment on above: Performed By: #### B 12FOL, VITAD, IRON #### [facility] [address] [place] [address] Dr. Ekta Funk CO2 [Moles/Vol] 24.2 mmol/L Normal 21.0-32.0 [facility] Comment on above: Performed By: #### B 12FOL, VITAD, IRON #### [facility] [address] [place] [address] Dr. Ekta Funk Creatinine [Mass/Vol] 1.89 mg/dL Critically high 0.55-1.02 [facility] Comment on above: Performed By: #### B 12FOL, VITAD, IRON #### [facility] [address] [place] [address] Dr. Ekta Funk EGFR-AF KUWAITI 32 mL/min/1.73m2 Critically low >=60 [facility] Comment on above: Performed By: #### B 12FOL, VITAD, IRON #### [facility] [address] [place] [address] Dr. Ekta Funk EGFR-NON AF [place] 26 mL/min/1.73m2 Critically low >=60 [facility] Comment on above: Performed By: #### B 12FOL, VITAD, IRON #### [facility] [address] [place] [address] Dr. Ekta Funk Globulin (S) [Mass/Vol] 4.1 g/dL Normal [facility] Comment on above: Performed By: #### B 12FOL, VITAD, IRON #### [facility] [address] [place] [address] Dr. Ekta Funk Glucose [Mass/Vol] 108 mg/dL Critically high 74-106 [facility] Comment on above: Performed By: #### B 12FOL, VITAD, IRON #### [facility] [address] [place] [address] Dr. Ekta Funk Potassium [Moles/Vol] 4.4 mmol/L Normal 3.5-5.1 [facility] Comment on above: Performed By: #### B 12FOL, VITAD, IRON #### [facility] [address] [place] [address] Dr. Ekta Funk Protein [Mass/Vol] 7.1 g/dL Normal 6.4-8.2 [facility] Comment on above: Performed By: #### B 12FOL, VITAD, IRON #### [facility] [address] [place] [address] Dr. Ekta Funk Sodium [Moles/Vol] 141 mmol/L Normal 136-145 [facility] Comment on above: Performed By: #### B 12FOL, VITAD, IRON #### [facility] [address] [place] [address] Dr. Ekta Funk Urea nitrogen [Mass/Vol] 40.0 mg/dL Critically high 7.0-18.0 [facility] Comment on above: Performed By: #### B 12FOL, VITAD, IRON #### [facility] [address] [place] [address] Dr. Ekta Funk Urea nitrogen/Creatinine [Mass ratio] 21.2 mg/mg Normal [facility] Comment on above: Performed By: #### B 12FOL, VITAD, IRON #### [facility] [address] [place] [address] Dr. Ekta Funk BNPon 10-23-2022 Natriuretic peptide B (Bld) [Mass/Vol] 507.0 pg/mL Normal <=900.0 [facility] Comment on above: Performed By: #### B 12FOL, VITAD, IRON #### [facility] [address] [place] [address] Dr. Ekta Funk CBC AUTO DIFFon 10-23-2022 BASO # 0.0 103/ul Normal 0.0-0.1 [facility] Comment on above: Performed By: #### C BC #### [facility] [address] [address] [address] Ekta Fukn Basophils/100 WBC (Bld) 0.2 % Normal 0.2-2.0 [facility] Comment on above: Performed By: #### C BC #### [facility] [address] [address] [address] Ekta Funk EO # 0.1 103/ul Normal 0.0-0.7 [facility] Comment on above: Performed By: #### C BC #### [facility] [address] [place] [address] Dr. Ekta Funk Eosinophils/100 WBC (Bld) 1.1 % Normal 0.9-7.0 [facility] Comment on above: Performed By: #### C BC #### [facility] [address] [place] [address] Dr. Ekta Funk Erythrocyte distribution width (RBC) [Ratio] 12.8 % Normal 11.0-15.0 [facility] Comment on above: Performed By: #### C BC #### [facility] [address] [place] [address] Dr. Ekta Funk Hematocrit (Bld) [Volume fraction] 37.1 % Normal 36.0-48.0 [facility] Comment on above: Performed By: #### C BC #### [facility] [address] [place] [address] Dr. Ekta Funk Hemoglobin (Bld) [Mass/Vol] 13.0 g/dL Normal 12.0-16.0 [facility] Comment on above: Performed By: #### C BC #### [facility] [address] [place] [address] Dr. Ekta Funk IG # 0.11 10e3/ul Critically high 0.00-0.03 [facility] Comment on above: Performed By: #### C BC #### [facility] [address] [place] [address] Dr. Ekta Funk IG % 1.1 % Critically high 0.0-0.5 [facility] Comment on above: Performed By: #### C BC #### [facility] [address] [place] [address] Dr. Ekta Funk LYMPH # 1.6 103/ul Normal 1.2-3.8 [facility] Comment on above: Performed By: #### C BC #### [facility] [address] [place] [address] Dr. Ekta Funk Lymphocytes/100 WBC (Bld) 15.6 % Critically low 20.5-60.0 [facility] Comment on above: Performed By: #### C BC #### [facility] [address] [place] [address] Dr. Ekta Funk MANUAL DIFF REQ NO Normal [facility] Comment on above: Performed By: #### C BC #### [facility] [address] [place] [address] Dr. Ekta Funk MCH (RBC) [Entitic mass] 32.8 pg Normal 26.7-34.0 [facility] Comment on above: Performed By: #### C BC #### [facility] [address] [place] [address] Dr. Ekta Funk MCHC (RBC) [Mass/Vol] 35.0 g/dL Normal 29.9-35.2 [facility] Comment on above: Performed By: #### C BC #### [facility] [address] [place] [address] Dr. Ekta Funk MCV (RBC) [Entitic vol] 93.7 fL Normal 81.0-99.0 [facility] Comment on above: Performed By: #### C BC #### [facility] [address] [place] [address] Dr. Ekta Funk MONO # 0.9 103/ul Critically high 0.3-0.8 [facility] Comment on above: Performed By: #### C BC #### [facility] [address] [place] [address] Dr. Ekta Funk Monocytes/100 WBC (Bld) 8.3 % Normal 1.7-12.0 [facility] Comment on above: Performed By: #### C BC #### [facility] [address] [place] [address] Dr. Ekta Funk NEUT # 7.5 103/ul Critically high 1.4-6.5 [facility] Comment on above: Performed By: #### C BC #### [facility] [address] [address] [address] Ekta Funk Neutrophils/100 WBC (Bld) 73.7 % Normal 43.0-75.0 [facility] Comment on above: Performed By: #### C BC #### [facility] [address] [place] [address] Dr. Ekta Funk Platelet mean volume (Bld) [Entitic vol] 10.3 fL Normal 9.5-13.5 [facility] Comment on above: Performed By: #### C BC #### [facility] [address] [place] [address] Dr. Ekta Funk PLT 135 103/ul Critically low 150-450 [facility] Comment on above: Performed By: #### C BC #### [facility] [address] [place] [address] Dr. Ekta Funk RBC 3.96 106/ul Critically low 4.20-5.40 [facility] Comment on above: Performed By: #### C BC #### [facility] [address] [place] [address] Dr. Ekta Funk WBC 10.2 103/ul Normal 4.0-11.0 [facility] Comment on above: Performed By: #### C BC #### [facility] [address] [place] [address] Dr. Ekta Funk PROF 14(COMP METB)on 023 Albumin [Mass/Vol] 2.7 g/dL Critically low 3.4-5.0 [facility] Comment on above: Performed By: #### B 12FOL, VITAD, IRON #### [facility] [address] [place] [address] Dr. Ekta Funk Albumin/Globulin [Mass ratio] 0.8 {ratio} Normal [facility] Comment on above: Performed By: #### B 12FOL, VITAD, IRON #### [facility] [address] [place] [address] Dr. Ekta Funk ALP [Catalytic activity/Vol] 74 U/L Normal 46-116 [facility] Comment on above: Performed By: #### B 12FOL, VITAD, IRON #### [facility] [address] [place] [address] Dr. Ekta Funk ALT [Catalytic activity/Vol] 26 U/L Normal 14-59 [facility] Comment on above: Performed By: #### B 12FOL, VITAD, IRON #### [facility] [address] [place] [address] Dr. Ekta Funk Anion gap [Moles/Vol] 16.5 mmol/L Normal [facility] Comment on above: Performed By: #### B 12FOL, VITAD, IRON #### [facility] [address] [place] [address] Dr. Ekta Funk AST [Catalytic activity/Vol] 15 U/L Normal 15-37 [facility] Comment on above: Performed By: #### B 12FOL, VITAD, IRON #### [facility] [address] [place] [address] Dr. Ekta Funk Bilirubin [Mass/Vol] 0.4 mg/dL Normal 0.2-1.0 [facility] Comment on above: Performed By: #### B 12FOL, VITAD, IRON #### [facility] [address] [place] [address] Dr. Ekta Funk Calcium [Mass/Vol] 8.1 mg/dL Critically low 8.5-10.1 [facility] Comment on above: Performed By: #### B 12FOL, VITAD, IRON #### [facility] [address] [place] [address] Dr. Ekta Funk Chloride [Moles/Vol] 96 mmol/L Critically low 98-107 [facility] Comment on above: Performed By: #### B 12FOL, VITAD, IRON #### [facility] [address] [place] [address] Dr. Ekta Funk CO2 [Moles/Vol] 26.1 mmol/L Normal 21.0-32.0 [facility] Comment on above: Performed By: #### B 12FOL, VITAD, IRON #### [facility] [address] [place] [address] Dr. Ekta Funk Creatinine [Mass/Vol] 3.28 mg/dL Critically high 0.55-1.02 [facility] Comment on above: Performed By: #### B 12FOL, VITAD, IRON #### [facility] [address] [place] [address] Dr. Ekta Funk EGFR-AF [place] 17 mL/min/1.73m2 Critically low >=60 [facility] Comment on above: Performed By: #### B 12FOL, VITAD, IRON #### [facility] [address] [place] [address] Dr. Ekta Funk EGFR-NON AF [place] 14 mL/min/1.73m2 Critically low >=60 [facility] Comment on above: Performed By: #### B 12FOL, VITAD, IRON #### [facility] [address] [place] [address] Dr. Ekta Funk Globulin (S) [Mass/Vol] 3.6 g/dL Normal [facility] Comment on above: Performed By: #### B 12FOL, VITAD, IRON #### [facility] [address] [place] [address] Dr. Ekta Funk Glucose [Mass/Vol] 132 mg/dL Critically high 74-[address] [facility] Comment on above: Performed By: #### B 12FOL, VITAD, IRON #### [facility] [address] [place] [address] Dr. Ekta Funk Potassium [Moles/Vol] 4.6 mmol/L Normal 3.5-5.1 [facility] Comment on above: Performed By: #### B 12FOL, VITAD, IRON #### [facility] [address] [place] [address] Dr. Ekta Funk Protein [Mass/Vol] 6.3 g/dL Critically low 6.4-8.2 [facility] Comment on above: Performed By: #### B 12FOL, VITAD, IRON #### [facility] [address] [place] [address] Dr. Ekta Funk Sodium [Moles/Vol] 134 mmol/L Critically low 136-145 [facility] Comment on above: Performed By: #### B 12FOL, VITAD, IRON #### [facility] [address] [place] [address] Dr. Ekta Funk Urea nitrogen [Mass/Vol] 74.0 mg/dL Critically high 7.0-18.0 [facility] Comment on above: Performed By: #### B 12FOL, VITAD, IRON #### [facility] [address] [place] [address] Dr. Ekta Funk Urea nitrogen/Creatinine [Mass ratio] 22.6 mg/mg Normal [facility] Comment on above: Performed By: #### B 12FOL, VITAD, IRON #### [facility] [address] [place] [address] Dr. Ekta Funk BNPon 10-22-2022 Natriuretic peptide B (Bld) [Mass/Vol] 1411.0 pg/mL Critically high <=900.0 [facility] Comment on above: Performed By: #### B 12FOL, VITAD, IRON #### [facility] [address] [place] [address] Dr. Ekta Funk CBC AUTO DIFFon 10-22-2022 BASO # 0.0 103/ul Normal 0.0-0.1 [facility] Comment on above: Performed By: #### B 12FOL, VITAD, IRON #### [facility] [address] [place] [address] Dr. Ekta Funk Basophils/100 WBC (Bld) 0.3 % Normal 0.2-2.0 [facility] Comment on above: Performed By: #### B 12FOL, VITAD, IRON #### [facility] [address] [place] [address] Dr. Ekta Funk EO # 0.1 103/ul Normal 0.0-0.7 [facility] Comment on above: Performed By: #### B 12FOL, VITAD, IRON #### [facility] [address] [place] [address] Dr. Ekta Funk Eosinophils/100 WBC (Bld) 0.6 % Critically low 0.9-7.0 [facility] Comment on above: Performed By: #### B 12FOL, VITAD, IRON #### [facility] [address] [place] [address] Dr. Ekta Funk Erythrocyte distribution width (RBC) [Ratio] 12.9 % Normal 11.0-15.0 [facility] Comment on above: Performed By: #### B 12FOL, VITAD, IRON #### [facility] [address] [place] [address] Dr. Ekta Funk Hematocrit (Bld) [Volume fraction] 40.8 % Normal 36.0-48.0 [facility] Comment on above: Performed By: #### B 12FOL, VITAD, IRON #### [facility] [address] [place] [address] Dr. Ekta Funk Hemoglobin (Bld) [Mass/Vol] 14.0 g/dL Normal 12.0-16.0 [facility] Comment on above: Performed By: #### B 12FOL, VITAD, IRON #### [facility] [address] [place] [address] Dr. Ekta Funk IG # 0.09 10e3/ul Critically high 0.00-0.03 [facility] Comment on above: Performed By: #### B 12FOL, VITAD, IRON #### [facility] [address] [place] [address] Dr. Ekta Funk IG % 0.8 % Critically high 0.0-0.5 [facility] Comment on above: Performed By: #### B 12FOL, VITAD, IRON #### [facility] [address] [place] [address] Dr. Ekta Funk LYMPH # 1.8 103/ul Normal 1.2-3.8 [facility] Comment on above: Performed By: #### B 12FOL, VITAD, IRON #### [facility] [address] [place] [address] Dr. Ekta Funk Lymphocytes/100 WBC (Bld) 16.2 % Critically low 20.5-60.0 [facility] Comment on above: Performed By: #### B 12FOL, VITAD, IRON #### [facility] [address] [place] [address] Dr. Ekta Funk MANUAL DIFF REQ NO Normal [facility] Comment on above: Performed By: #### B 12FOL, VITAD, IRON #### [facility] [address] [place] [address] Dr. Ekta Funk MCH (RBC) [Entitic mass] 32.3 pg Normal 26.7-34.0 [facility] Comment on above: Performed By: #### B 12FOL, VITAD, IRON #### [facility] [address] [place] [address] Dr. Ekta Funk MCHC (RBC) [Mass/Vol] 34.3 g/dL Normal 29.9-35.2 [facility] Comment on above: Performed By: #### B 12FOL, VITAD, IRON #### [facility] [address] [place] [address] Dr. Ekta Funk MCV (RBC) [Entitic vol] 94.2 fL Normal 81.0-99.0 [facility] Comment on above: Performed By: #### B 12FOL, VITAD, IRON #### [facility] [address] [place] [address] Dr. Ekta Funk MONO # 0.8 103/ul Normal 0.3-0.8 [facility] Comment on above: Performed By: #### B 12FOL, VITAD, IRON #### [facility] [address] [place] [address] Dr. Ekta Funk Monocytes/100 WBC (Bld) 7.3 % Normal 1.7-12.0 [facility] Comment on above: Performed By: #### B 12FOL, VITAD, IRON #### [facility] [address] [address] [address] Ekta Funk NEUT # 8.1 103/ul Critically high 1.4-6.5 [facility] Comment on above: Performed By: #### B 12FOL, VITAD, IRON #### [facility] [address] [place] [address] Dr. Ekta Funk Neutrophils/100 WBC (Bld) 74.8 % Normal 43.0-75.0 [facility] Comment on above: Performed By: #### B 12FOL, VITAD, IRON #### [facility] [address] [place] [address] Dr. Ekta Funk Platelet mean volume (Bld) [Entitic vol] 9.8 fL Normal 9.5-13.5 [facility] Comment on above: Performed By: #### B 12FOL, VITAD, IRON #### [facility] [address] [place] [address] Dr. Ekta Funk PLT 226 103/ul Normal 150-450 [facility] Comment on above: Performed By: #### B 12FOL, VITAD, IRON #### [facility] [address] [place] [address] Dr. Ekta Funk RBC 4.33 106/ul Normal 4.20-5.40 [facility] Comment on above: Performed By: #### B 12FOL, VITAD, IRON #### [facility] [address] [place] [address] Dr. Ekta Funk WBC 10.9 103/ul Normal 4.0-11.0 [facility] Comment on above: Performed By: #### B 12FOL, VITAD, IRON #### [facility] [address] [place] [address] Dr. Ekta Funk PROF 14(COMP METB)on 023 Albumin [Mass/Vol] 3.1 g/dL Critically low 3.4-5.0 e [facility] Comment on above: Performed By: #### B 12FOL, VITAD, IRON #### [facility] [address] [place] [address] Dr. Ekta Funk Albumin/Globulin [Mass ratio] 0.7 {ratio} Normal [facility] Comment on above: Performed By: #### B 12FOL, VITAD, IRON #### [facility] [address] [place] [address] Dr. Ekta Funk ALP [Catalytic activity/Vol] 81 U/L Normal 46-116 [facility] Comment on above: Performed By: #### B 12FOL, VITAD, IRON #### [facility] [address] [place] [address] Dr. Ekta Funk ALT [Catalytic activity/Vol] 30 U/L Normal 14-59 [facility] Comment on above: Performed By: #### B 12FOL, VITAD, IRON #### [facility] [address] [place] [address] Dr. Ekta Funk Anion gap [Moles/Vol] 17.3 mmol/L Normal [facility] Comment on above: Performed By: #### B 12FOL, VITAD, IRON #### [facility] [address] [place] [address] Dr. Ekta Funk AST [Catalytic activity/Vol] 11 U/L Critically low 15-37 [facility] Comment on above: Performed By: #### B 12FOL, VITAD, IRON #### [facility] [address] [place] [address] Dr. Ekta Funk Bilirubin [Mass/Vol] 0.5 mg/dL Normal 0.2-1.0 [facility] Comment on above: Performed By: #### B 12FOL, VITAD, IRON #### [facility] [address] [place] [address] Dr. Ekta Funk Calcium [Mass/Vol] 8.6 mg/dL Normal 8.5-10.1 [facility] Comment on above: Performed By: #### B 12FOL, VITAD, IRON #### [facility] [address] [place] [address] Dr. Ekta Funk Chloride [Moles/Vol] 95 mmol/L Critically low 98-107 [facility] Comment on above: Performed By: #### B 12FOL, VITAD, IRON #### [facility] [address] [place] [address] Dr. Ekta Funk CO2 [Moles/Vol] 27.3 mmol/L Normal 21.0-32.0 [facility] Comment on above: Performed By: #### B 12FOL, VITAD, IRON #### [facility] [address] [place] [address] Dr. Ekta Funk Creatinine [Mass/Vol] 3.17 mg/dL Critically high 0.55-1.02 [facility] Comment on above: Performed By: #### B 12FOL, VITAD, IRON #### [facility] [address] [place] [address] Dr. Ekta Funk EGFR-AF [place] 17 mL/min/1.73m2 Critically low >=60 [facility] Comment on above: Performed By: #### B 12FOL, VITAD, IRON #### [facility] [address] [place] [address] Dr. Ekta Funk EGFR-NON AF [place] 14 mL/min/1.73m2 Critically low >=60 [facility] Comment on above: Performed By: #### B 12FOL, VITAD, IRON #### [facility] [address] [place] [address] Dr. Ekta Funk Globulin (S) [Mass/Vol] 4.6 g/dL Normal [facility] Comment on above: Performed By: #### B 12FOL, VITAD, IRON #### [facility] [address] [place] [address] Dr. Ekta Funk Glucose [Mass/Vol] 139 mg/dL Critically high 74-[address] [facility] Comment on above: Performed By: #### B 12FOL, VITAD, IRON #### [facility] [address] [place] [address] Dr. Ekta Funk Potassium [Moles/Vol] 4.6 mmol/L Normal 3.5-5.1 [facility] Comment on above: Performed By: #### B 12FOL, VITAD, IRON #### [facility] [address] [place] [address] Dr. Ekta Funk Protein [Mass/Vol] 7.7 g/dL Normal 6.4-8.2 [facility] Comment on above: Performed By: #### B 12FOL, VITAD, IRON #### [facility] [address] [place] [address] Dr. Ekta Funk Sodium [Moles/Vol] 135 mmol/L Critically low 136-145 Th [facility] Comment on above: Performed By: #### B 12FOL, VITAD, IRON #### [facility] [address] [place] [address] Dr. Ekta Funk Urea nitrogen [Mass/Vol] 73.0 mg/dL Critically high 7.0-18.0 [facility] Comment on above: Performed By: #### B 12FOL, VITAD, IRON #### [facility] [address] [place] [address] Dr. Ekta Funk Urea nitrogen/Creatinine [Mass ratio] 23.0 mg/mg Normal [facility] Comment on above: Performed By: #### B 12FOL, VITAD, IRON #### [facility] [address] [place] [address] Dr. Ekta Funk BNPon 10-21-2022 Natriuretic peptide B (Bld) [Mass/Vol] 2007.0 pg/mL Critically high <=900.0 [facility] Comment on above: Performed By: #### C MP #### [facility] [address] [place] [address] Dr. Ekta Funk CBC AUTO DIFFon 10-21-2022 BASO # 0.0 103/ul Normal 0.0-0.1 [facility] Comment on above: Performed By: #### C BC #### [facility] [address] [place] [address] Dr. Ekta Funk Basophils/100 WBC (Bld) 0.2 % Normal 0.2-2.0 [facility] Comment on above: Performed By: #### C BC #### [facility] [address] [place] [address] Dr. Ekta Funk EO # 0.1 103/ul Normal 0.0-0.7 [facility] Comment on above: Performed By: #### C BC #### [facility] [address] [place] [address] Dr. Ekta Funk Eosinophils/100 WBC (Bld) 0.9 % Normal 0.9-7.0 [facility] Comment on above: Performed By: #### C BC #### [facility] [address] [place] [address] Dr. Ekta Funk Erythrocyte distribution width (RBC) [Ratio] 12.8 % Normal 11.0-15.0 [facility] Comment on above: Performed By: #### C BC #### [facility] [address] [place] [address] Dr. Ekta Funk Hematocrit (Bld) [Volume fraction] 38.8 % Normal 36.0-48.0 [facility] Comment on above: Performed By: #### C BC #### [facility] [address] [place] [address] Dr. Ekta Funk Hemoglobin (Bld) [Mass/Vol] 13.3 g/dL Normal 12.0-16.0 [facility] Comment on above: Performed By: #### C BC #### [facility] [address] [place] [address] Dr. Ekta Funk IG # 0.08 10e3/ul Critically high 0.00-0.03 [facility] Comment on above: Performed By: #### C BC #### [facility] [address] [place] [address] Dr. Ekta Funk IG % 0.8 % Critically high 0.0-0.5 [facility] Comment on above: Performed By: #### C BC #### [facility] [address] [place] [address] Dr. Ekta Funk LYMPH # 1.7 103/ul Normal 1.2-3.8 [facility] Comment on above: Performed By: #### C BC #### [facility] [address] [place] [address] Dr. Ekta Funk Lymphocytes/100 WBC (Bld) 17.3 % Critically low 20.5-60.0 [facility] Comment on above: Performed By: #### C BC #### [facility] [address] [place] [address] Dr. Ekta Funk MANUAL DIFF REQ NO Normal [facility] Comment on above: Performed By: #### C BC #### [facility] [address] [place] [address] Dr. Ekta Funk MCH (RBC) [Entitic mass] 32.1 pg Normal 26.7-34.0 [facility] Health Comment on above: Performed By: #### C BC #### [facility] [address] [place] [address] Dr. Ekta Funk MCHC (RBC) [Mass/Vol] 34.3 g/dL Normal 29.9-35.2 [facility] Comment on above: Performed By: #### C BC #### [facility] [address] [place] [address] Dr. Ekta Funk MCV (RBC) [Entitic vol] 93.7 fL Normal 81.0-99.0 [facility] Comment on above: Performed By: #### C BC #### [facility] [address] [place] [address] Dr. Ekta Funk MONO # 0.6 103/ul Normal 0.3-0.8 [facility] Comment on above: Performed By: #### C BC #### [facility] [address] [place] [address] Dr. Ekta Funk Monocytes/100 WBC (Bld) 6.4 % Normal 1.7-12.0 [facility] Comment on above: Performed By: #### C BC #### [facility] [address] [place] [address] Dr. Ekta Funk NEUT # 7.4 103/ul Critically high 1.4-6.5 [facility] Comment on above: Performed By: #### C BC #### [facility] [address] [address] [address] Ekta Funk Neutrophils/100 WBC (Bld) 74.4 % Normal 43.0-75.0 [facility] Comment on above: Performed By: #### C BC #### [facility] [address] [address] [address] Ekta Funk Platelet mean volume (Bld) [Entitic vol] 9.8 fL Normal 9.5-13.5 [facility] Comment on above: Performed By: #### C BC #### [facility] [address] [address] [address] Ekta Funk PLT 193 103/ul Normal 150-450 [facility] Comment on above: Performed By: #### C BC #### [facility] [address] [place] [address] Dr. Ekta Funk RBC 4.14 106/ul Critically low 4.20-5.40 [facility] Comment on above: Performed By: #### C BC #### [facility] [address] [address] [address] Ekta Funk WBC 9.9 103/ul Normal 4.0-11.0 [facility] Comment on above: Performed By: #### C BC #### [facility] [address] [place] [address] Dr. Ekta Funk PROF 14(COMP METB)on 023 Albumin [Mass/Vol] 3.2 g/dL Critically low 3.4-5.0 [facility] Comment on above: Performed By: #### I NSULIN #### [facility] [address] [address] [address] Ekta Funk Albumin/Globulin [Mass ratio] 0.8 {ratio} Normal [facility] Comment on above: Performed By: #### I NSULIN #### [facility] [address] [address] [address] Ekta Funk ALP [Catalytic activity/Vol] 82 U/L Normal 46-116 [facility] Comment on above: Performed By: #### I NSULIN #### [facility] [address] [address] [address] Ekta Funk ALT [Catalytic activity/Vol] 38 U/L Normal 14-59 [facility] Comment on above: Performed By: #### I NSULIN #### [facility] [address] [address] [address] Ekta Funk Anion gap [Moles/Vol] 19.1 mmol/L Normal [facility] Comment on above: Performed By: #### I NSULIN #### [facility] [address] [address] [address] Ekta Funk AST [Catalytic activity/Vol] 19 U/L Normal 15-37 [facility] Comment on above: Performed By: #### I NSULIN #### [facility] [address] [place] [address] Dr. Ekta Funk Bilirubin [Mass/Vol] 0.4 mg/dL Normal 0.2-1.0 [facility] Comment on above: Performed By: #### I NSULIN #### [facility] [address] [address] [address] Ekta Funk Calcium [Mass/Vol] 9.2 mg/dL Normal 8.5-10.1 [facility] Comment on above: Performed By: #### I NSULIN #### [facility] [address] [address] [address] Ekta Funk Chloride [Moles/Vol] 98 mmol/L Normal 98-107 [facility] Comment on above: Performed By: #### I NSULIN #### [facility] [address] [address] [address] Ekta Funk CO2 [Moles/Vol] 26.4 mmol/L Normal 21.0-32.0 [facility] Comment on above: Performed By: #### I NSULIN #### [facility] [address] [address] [address] Ekta Funk Creatinine [Mass/Vol] 2.20 mg/dL Critically high 0.55-1.02 [facility] Comment on above: Performed By: #### I NSULIN #### [facility] [address] [address] [address] Ekta Funk EGFR-AF KUWAITI 26 mL/min/1.73m2 Critically low >=60 [facility] Comment on above: Performed By: #### I NSULIN #### [facility] [address] [address] [address] Ekta Funk EGFR-NON AF [place]I 22 mL/min/1.73m2 Critically low >=60 [facility] Comment on above: Performed By: #### I NSULIN #### [facility] [address] [address] [address] Ekta Funk Globulin (S) [Mass/Vol] 3.8 g/dL Normal [facility] Comment on above: Performed By: #### I NSULIN #### [facility] [address] [address] [address] Ekta Funk Glucose [Mass/Vol] 142 mg/dL Critically high 74-106 [facility] Comment on above: Performed By: #### I NSULIN #### [facility] [address] [address] [address] Ekta Funk Potassium [Moles/Vol] 4.5 mmol/L Normal 3.5-5.1 [facility] Comment on above: Performed By: #### I NSULIN #### [facility] [address] [address] [address] Ekta Funk Protein [Mass/Vol] 7.0 g/dL Normal 6.4-8.2 [facility] Comment on above: Performed By: #### I NSULIN #### [facility] [address] [address] [address] Ekta Funk Sodium [Moles/Vol] 139 mmol/L Normal 136-145 [facility] Comment on above: Performed By: #### I NSULIN #### [facility] [address] [address] [address] Ekta Funk Urea nitrogen [Mass/Vol] 57.0 mg/dL Critically high 7.0-18.0 [facility] Comment on above: Performed By: #### I NSULIN #### [facility] [address] [address] [address] Ekta Funk Urea nitrogen/Creatinine [Mass ratio] 25.9 mg/mg Normal [facility] Comment on above: Performed By: #### I NSULIN #### [facility] [address] [address] [address] Ekta Funk T3, TOTAL (TRIIODOTHYRONINE) on 10-21-2022 T3, TOTAL 63 ng/dL Critically low 71-180 [facility] Comment on above: Performed By: #### C MP #### [facility] [address] [address] [address] Ekta Funk XR ABD FLAT_UPon 10-21-2022 [...] by: DANIEL MARIE Date: 2022-10-21 11:42 Normal [facility] XR CHEST 2 Von 10-21-2022 XR CHEST [...] by: CHRISTIANO MORALES Date: 2022-10-21 11:23 Normal [facility] BNPon 10-20-2022 Natriuretic peptide B (Bld) [Mass/Vol] 2512.0 pg/mL Critically high <=900.0 [facility] Comment on above: Performed By: #### B 12FOL, VITAD, IRON #### [facility] [address] [address] [address] Ekta Funk CARDIAC BRITTANIE ADMITon 023 CK [Catalytic activity/Vol] 35 U/L Normal 26-192 [facility] Comment on above: Performed By: #### B 12FOL, VITAD, IRON #### [facility] [address] [address] [address] Ekta Funk CK.MB [Mass/Vol] 0.64 ng/mL Normal <=3.60 [facility] Comment on above: Performed By: #### B 12FOL, VITAD, IRON #### [facility] [address] [address] [address] Ekta Funk HSTROP 28.1 pg/mL Normal 4.0-51.3 [facility] Comment on above: Result Comment: CUT- OFF POINTS HAVE BEEN ESTABLISHED BASED ON THE FOURTH UNIVERSAL DEFINITIONS OF MYOCARDIAL INFARCTION. THE UPPER REFERENCE LIMIT (URL) OF TROPONIN, DEFINED THE 99TH PERCENTILE OF cTnI DISTRIBUTION IN A REFERENCE POPULATION, HAS BEEN CONFIRMED THE DECISION THRESHOLD FOR GA DIAGNOSIS. Performed By: #### B 12FOL, VITAD, IRON #### [facility] [address] [place] [address] Dr. Ekta Funk EVELYN 57 ng/mL Normal 9-82 [facility] Comment on above: Performed By: #### B 12FOL, VITAD, IRON #### [facility] [address] [address] [address] Ekta Funk CBC AUTO DIFFon 10-20-2022 BASO # 0.0 103/ul Normal 0.0-0.1 [facility] Comment on above: Performed By: #### C BC #### [facility] [address] [place] [address] Dr. Ekta Funk Basophils/100 WBC (Bld) 0.2 % Normal 0.2-2.0 [facility] Comment on above: Performed By: #### C BC #### [facility] [address] [place] [address] Dr. Ekta Funk EO # 0.2 103/ul Normal 0.0-0.7 [facility] Comment on above: Performed By: #### C BC #### [facility] [address] [address] [address] Ekta Funk Eosinophils/100 WBC (Bld) 1.4 % Normal 0.9-7.0 [facility] Comment on above: Performed By: #### C BC #### [facility] [address] [place] [address] Dr. Ekta Funk Erythrocyte distribution width (RBC) [Ratio] 12.9 % Normal 11.0-15.0 [facility] Comment on above: Performed By: #### C BC #### [facility] [address] [place] [address] Dr. Ekta Funk Hematocrit (Bld) [Volume fraction] 34.7 % Critically low 36.0-48.0 [facility] Comment on above: Performed By: #### C BC #### [facility] [address] [place] [address] Dr. Ekta Funk Hemoglobin (Bld) [Mass/Vol] 11.8 g/dL Critically low 12.0-16.0 [facility] Comment on above: Performed By: #### C BC #### [facility] [address] [place] [address] Dr. Ekta Funk IG # 0.09 10e3/ul Critically high 0.00-0.03 [facility] Comment on above: Performed By: #### C BC #### [facility] [address] [place] [address] Dr. Ekta Funk IG % 0.8 % Critically high 0.0-0.5 [facility] Comment on above: Performed By: #### C BC #### [facility] [address] [place] [address] Dr. Ekta Funk LYMPH # 1.9 103/ul Normal 1.2-3.8 [facility] Comment on above: Performed By: #### C BC #### [facility] [address] [place] [address] Dr. Ekta Funk Lymphocytes/100 WBC (Bld) 16.1 % Critically low 20.5-60.0 [facility] Comment on above: Performed By: #### C BC #### [facility] [address] [place] [address] Dr. Ekta Funk MANUAL DIFF REQ NO Normal [facility] Comment on above: Performed By: #### C BC #### [facility] [address] [place] [address] Dr. Ekta Funk MCH (RBC) [Entitic mass] 32.6 pg Normal 26.7-34.0 [facility] Comment on above: Performed By: #### C BC #### [facility] [address] [place] [address] Dr. Ekta Funk MCHC (RBC) [Mass/Vol] 34.0 g/dL Normal 29.9-35.2 [facility] Comment on above: Performed By: #### C BC #### [facility] [address] [place] [address] Dr. Ekta Funk MCV (RBC) [Entitic vol] 95.9 fL Normal 81.0-99.0 [facility] Comment on above: Performed By: #### C BC #### [facility] [address] [place] [address] Dr. Ekta Funk MONO # 0.8 103/ul Normal 0.3-0.8 [facility] Comment on above: Performed By: #### C BC #### [facility] [address] [place] [address] Dr. Ekta Funk Monocytes/100 WBC (Bld) 7.0 % Normal 1.7-12.0 [facility] Comment on above: Performed By: #### C BC #### [facility] [address] [place] [address] Dr. Ekta Funk NEUT # 8.8 103/ul Critically high 1.4-6.5 [facility] Comment on above: Performed By: #### C BC #### [facility] [address] [place] [address] Dr. Ekta Funk Neutrophils/100 WBC (Bld) 74.5 % Normal 43.0-75.0 [facility] Comment on above: Performed By: #### C BC #### [facility] [address] [address] [address] Ekta Funk Platelet mean volume (Bld) [Entitic vol] 9.8 fL Normal 9.5-13.5 [facility] Comment on above: Performed By: #### C BC #### [facility] [address] [address] [address] Ekta Funk PLT 203 103/ul Normal 150-450 [facility] Comment on above: Performed By: #### C BC #### [facility] [address] [address] [address] Ekta Funk RBC 3.62 106/ul Critically low 4.20-5.40 [facility] Comment on above: Performed By: #### C BC #### [facility] [address] [place] [address] Dr. Ekta Funk WBC 11.8 103/ul Critically high 4.0-11.0 [facility] Comment on above: Performed By: #### C BC #### [facility] [address] [address] [address] Ekta Funk CULTURE URINEon 10-20-2022 CULTURE URINE Culture Observations : NO GROWTH. Normal [facility] Comment on above: Performed By: #### I NSULIN #### [facility] [address] [place] [address] Dr. Ekta Funk Covid-19 PCR (CVDTB)on 10-11 SARS-CoV-2 (COVID-19) RNA GANESH+probe Ql (Unsp spec) Not detected Normal NOT DETECTED [facility] Comment on above: Result Comment: [...] for this test is supported by the [place] of [employer] and Human Service's declaration that [...] By: #### B 12FOL, VITAD, IRON #### [facility] [address] [place], [place] [address] Dr. Ekta Funk ECHOCARDIO M/2D COMPLETEon 0 10-20-2022 ECHOCARDIO M/2D COMPLETE Patient: SHEILA MAC Exam Date: 10/20/2022 : 1950 Gender:F Ordering : DR KRZYSZTOF HARP . Admission #: [id number] Family : Order #: [id number] CLICK HERE TO VIEW EXAM ECHOCARDIOGRAM REPORT [...] M.D. on 10/20/2022 at 14:57 Normal [facility] PROF 14(COMP METB)on 023 Albumin [Mass/Vol] 2.8 g/dL Critically low 3.4-5.0 [facility] Comment on above: Performed By: #### B 12FOL, VITAD, IRON #### [facility] [address] [place] [address] Dr. Ekta Funk Albumin/Globulin [Mass ratio] 0.7 {ratio} Normal [facility] Comment on above: Performed By: #### B 12FOL, VITAD, IRON #### [facility] [address] [place] [address] Dr. Ekta Funk ALP [Catalytic activity/Vol] 84 U/L Normal 46-116 [facility] Comment on above: Performed By: #### B 12FOL, VITAD, IRON #### [facility] [address] [place] [address] Dr. Ekta Funk ALT [Catalytic activity/Vol] 29 U/L Normal 14-59 [facility] Comment on above: Performed By: #### B 12FOL, VITAD, IRON #### [facility] [address] [place] [address] Dr. Ekta Funk Anion gap [Moles/Vol] 15.9 mmol/L Normal [facility] Comment on above: Performed By: #### B 12FOL, VITAD, IRON #### [facility] [address] [place] [address] Dr. Ekta Funk AST [Catalytic activity/Vol] 15 U/L Normal 15-37 [facility] Comment on above: Performed By: #### B 12FOL, VITAD, IRON #### [facility] [address] [place] [address] Dr. Ekta Funk Bilirubin [Mass/Vol] 0.3 mg/dL Normal 0.2-1.0 [facility] Comment on above: Performed By: #### B 12FOL, VITAD, IRON #### [facility] [address] [place] [address] Dr. Ekta Funk Calcium [Mass/Vol] 8.9 mg/dL Normal 8.5-10.1 [facility] Comment on above: Performed By: #### B 12FOL, VITAD, IRON #### [facility] [address] [address] [address] Ekta Funk Chloride [Moles/Vol] 103 mmol/L Normal 98-107 [facility] Comment on above: Performed By: #### B 12FOL, VITAD, IRON #### [facility] [address] [place] [address] Dr. Ekta Funk CO2 [Moles/Vol] 26.3 mmol/L Normal 21.0-32.0 [facility] Comment on above: Performed By: #### B 12FOL, VITAD, IRON #### [facility] [address] [place] [address] Dr. Ekta Funk Creatinine [Mass/Vol] 1.99 mg/dL Critically high 0.55-1.02 [facility] Comment on above: Performed By: #### B 12FOL, VITAD, IRON #### [facility] [address] [place] [address] Dr. Ekta Funk EGFR-AF [place]I 30 mL/min/1.73m2 Critically low >=60 [facility] Comment on above: Performed By: #### B 12FOL, VITAD, IRON #### [facility] [address] [place] [address] Dr. Ekta Funk EGFR-NON AF [place] 24 mL/min/1.73m2 Critically low >=60 [facility] Comment on above: Performed By: #### B 12FOL, VITAD, IRON #### [facility] [address] [place] [address] Dr. Ekta Funk Globulin (S) [Mass/Vol] 4.1 g/dL Normal [facility] Comment on above: Performed By: #### B 12FOL, VITAD, IRON #### [facility] [address] [place] [address] Dr. Ekta Funk Glucose [Mass/Vol] 115 mg/dL Critically high 74-[address] [facility] Comment on above: Performed By: #### B 12FOL, VITAD, IRON #### [facility] [address] [place] [address] Dr. Ekta Funk Potassium [Moles/Vol] 5.2 mmol/L Critically high 3.5-5.1 [facility] Comment on above: Performed By: #### B 12FOL, VITAD, IRON #### [facility] [address] [place] [address] Dr. Ekta Funk Protein [Mass/Vol] 6.9 g/dL Normal 6.4-8.2 [facility] Comment on above: Performed By: #### B 12FOL, VITAD, IRON #### [facility] [address] [place] [address] Dr. Ekta Funk Sodium [Moles/Vol] 140 mmol/L Normal 136-145 [facility] Comment on above: Performed By: #### B 12FOL, VITAD, IRON #### [facility] [address] [place] [address] Dr. Ekta Funk Urea nitrogen [Mass/Vol] 45.0 mg/dL Critically high 7.0-18.0 [facility] Comment on above: Performed By: #### B 12FOL, VITAD, IRON #### [facility] [address] [place] [address] Dr. Ekta Funk Urea nitrogen/Creatinine [Mass ratio] 22.6 mg/mg Normal [facility] Comment on above: Performed By: #### B 12FOL, VITAD, IRON #### [facility] [address] [place] [address] Dr. Ekta Funk T4on 10-20-2022 T4 [Mass/Vol] 6.10 ug/dL Normal 4.80-13.90 [facility] Comment on above: Performed By: #### B 12FOL, VITAD, IRON #### [facility] [address] [place] [address] Dr. Ekta Funk TSHon 10-20-2022 TSH 1.336 uIU/mL Normal 0.358-3.740 [facility] Comment on above: Performed By: #### B 12FOL, VITAD, IRON #### [facility] [address] [place] [address] Dr. Ekta Funk UA RANDOM W/MICROSCOPICon BACTERIA TRACE Abnormal NONE SEEN [facility] Comment on above: Performed By: #### B 12FOL, VITAD, IRON #### [facility] [address] [place] [address] Dr. Ekta Funk Bilirubin Ql (U) Negative Normal NEGATIVE [facility] Comment on above: Performed By: #### B 12FOL, VITAD, IRON #### [facility] [address] [place] [address] Dr. Ekta Funk CAST NONE SEEN Normal NONE SEEN [facility] Comment on above: Performed By: #### B 12FOL, VITAD, IRON #### [facility] [address] [place] [address] Dr. Ekta Funk Clarity (U) CLEAR Normal CLEAR [facility] Comment on above: Performed By: #### B 12FOL, VITAD, IRON #### [facility] [address] [place] [address] Dr. Ekta Funk Color (U) LT. YELLOW Normal YELLOW [facility] Comment on above: Performed By: #### B 12FOL, VITAD, IRON #### [facility] [address] [place] [address] Dr. Ekta Funk Crystals LM Nom (Urine sed) NONE SEEN Normal NONE SEEN [facility] Comment on above: Performed By: #### B 12FOL, VITAD, IRON #### [facility] [address] [place] [address] Dr. Ekta Funk Epithelial cells LM Ql (Urine sed) RARE Normal NONE SEEN /RARE [facility] Comment on above: Performed By: #### B 12FOL, VITAD, IRON #### [facility] [address] [place] [address] Dr. Ekta Funk Glucose Ql (U) Negative Normal NEGATIVE [facility] Comment on above: Performed By: #### B 12FOL, VITAD, IRON #### [facility] [address] [place] [address] Dr. Ekta Funk Hemoglobin Ql (U) Negative Normal NEGATIVE [facility] Comment on above: Performed By: #### B 12FOL, VITAD, IRON #### [facility] [address] [place] [address] Dr. Ekta Funk Ketones Ql (U) Negative Normal NEGATIVE [facility] Comment on above: Performed By: #### B 12FOL, VITAD, IRON #### [facility] [address] [address] [address] Ekta Funk LEUKOCYTES Negative Normal NEGATIVE [facility] Comment on above: Performed By: #### B 12FOL, VITAD, IRON #### [facility] [address] [place] [address] Dr. Ekta Funk MUCOUS NONE SEEN Normal NONE SEEN [facility] Comment on above: Performed By: #### B 12FOL, VITAD, IRON #### [facility] [address] [place] [address] Dr. Ekta Funk Nitrite Ql (U) Negative Normal NEGATIVE [facility] Comment on above: Performed By: #### B 12FOL, VITAD, IRON #### [facility] [address] [place] [address] Dr. Ekta Funk pH (U) 6.0 [pH] Normal 5-9 [facility] Comment on above: Performed By: #### B 12FOL, VITAD, IRON #### [facility] [address] [place] [address] Dr. Ekta Funk RBC 0-2 Normal 0-2 [facility] Comment on above: Performed By: #### B 12FOL, VITAD, IRON #### [facility] [address] [place] [address] Dr. Ekta Funk SPEC GRAVITY <=1.005 Abnormal 1.005-<=1.025 [facility] Comment on above: Performed By: #### B 12FOL, VITAD, IRON #### [facility] [address] [place] [address] Dr. Ekta Funk UA PROTEIN Negative Normal NEGATIVE/ TRACE [facility] Comment on above: Performed By: #### B 12FOL, VITAD, IRON #### [facility] [address] [place] [address] Dr. Ekta Funk Urobilinogen Qn (U) 0.2 {Ivan'U}/dL Normal 0.2 - 1. 0 [facility] Comment on above: Performed By: #### B 12FOL, VITAD, IRON #### [facility] [address] [place] [address] Dr. Ekta Funk WBC NONE SEEN Normal NONE SEEN [facility] Comment on above: Performed By: #### B 12FOL, VITAD, IRON #### [facility] [address] [place] [address] Dr. Ekat Funk BNPon 10-19-2022 Natriuretic peptide B (Bld) [Mass/Vol] 1355.0 pg/mL Critically high <=900.0 [facility] Comment on above: Performed By: #### B 12FOL, VITAD, IRON #### [facility] [address] [place] [address] Dr. Ekta Funk INSULINon 10-19-2022 Insulin 12.4 uIU/mL Normal 2.6-24.9 [facility] Comment on above: Performed By: #### I NSULIN #### [facility] [address] [place] [address] Dr. Ekta Funk OCC BLD IMMUNO SCREENon OCCULT BLOOD Positive Abnormal NEGATIVE [facility] Comment on above: Performed By: #### B 12FOL, VITAD, IRON #### [facility] [address] [place] [address] Dr. Ekta Funk PROF CHEM 8 (BAS METB)on Anion gap [Moles/Vol] 15.8 mmol/L Normal [facility] Comment on above: Performed By: #### B 12FOL, VITAD, IRON #### [facility] [address] [place] [address] Dr. Ekta Funk Calcium [Mass/Vol] 8.8 mg/dL Normal 8.5-10.1 [facility] Comment on above: Performed By: #### B 12FOL, VITAD, IRON #### [facility] [address] [place], [place] [id number] Dr. Ekta Funk Chloride [Moles/Vol] 107 mmol/L Normal 98-107 [facility] Comment on above: Performed By: #### B 12FOL, VITAD, IRON #### [facility] [address] [place] [address] Dr. Ekta Funk CO2 [Moles/Vol] 21.5 mmol/L Normal 21.0-32.0 [facility] Comment on above: Performed By: #### B 12FOL, VITAD, IRON #### [facility] [address] [place] [address] Dr. Ekta uFnk Creatinine [Mass/Vol] 1.62 mg/dL Critically high 0.55-1.02 [facility] Comment on above: Performed By: #### B 12FOL, VITAD, IRON #### [facility] [address] [place] [address] Dr. Ekta Funk EGFR-AF KUWAITI 38 mL/min/1.73m2 Critically low >=60 [facility] Comment on above: Performed By: #### B 12FOL, VITAD, IRON #### [facility] [address] [place] [address] Dr. Ekta Funk EGFR-NON AF [place]I 31 mL/min/1.73m2 Critically low >=60 [facility] Comment on above: Performed By: #### B 12FOL, VITAD, IRON #### [facility] [address] [place] [address] Dr. Ekta Funk Glucose [Mass/Vol] 134 mg/dL Critically high 74-106 [facility] Comment on above: Performed By: #### B 12FOL, VITAD, IRON #### [facility] [address] [place] [address] Dr. Ekta Funk Potassium [Moles/Vol] 5.3 mmol/L Critically high 3.5-5.1 [facility] Comment on above: Performed By: #### B 12FOL, VITAD, IRON #### [facility] [address] [place] [address] Dr. Ekta Funk Sodium [Moles/Vol] 139 mmol/L Normal 136-145 [facility] Comment on above: Performed By: #### B 12FOLCAROLYN, IRON #### [facility] [address] [place] [address] Dr. Ekta Funk Urea nitrogen [Mass/Vol] 37.0 mg/dL Critically high 7.0-18.0 [facility] Comment on above: Performed By: #### Bob FelixFOLNENOAD, IRON #### [facility] [address] [place] [address] Dr. Ekta Funk Urea nitrogen/Creatinine [Mass ratio] 22.8 mg/mg Normal [facility] Comment on above: Performed By: #### CAROLYN ARTHUR, IRON #### [facility] [address] [place] [address] Dr. Ekta Funk TROPONIN, HIGH SENSITIVITYon 10-19-2022 HSTROP 53.2 pg/mL Critically high 4.0-51.3 [facility] Comment on above: Result Comment: CUT- OFF POINTS HAVE BEEN ESTABLISHED BASED ON THE FOURTH UNIVERSAL DEFINITIONS OF MYOCARDIAL INFARCTION. THE UPPER REFERENCE LIMIT (URL) OF TROPONIN, DEFINED THE 99TH PERCENTILE OF cTnI DISTRIBUTION IN A REFERENCE POPULATION, HAS BEEN CONFIRMED THE DECISION THRESHOLD FOR GA DIAGNOSIS. Performed By: #### CAROLYN ARTHUR, IRON #### [facility] [address] [place] [address] Dr. Ekta Funk BNPon 10-18-2022 Natriuretic peptide B (Bld) [Mass/Vol] 1386.0 pg/mL Critically high <=900.0 [facility] Comment on above: Performed By: #### C VDTBH #### [facility] [address] [place] [address] Dr. Ekta Funk CARDIAC BRITTANIE ADMITon 023 CK [Catalytic activity/Vol] 34 U/L Normal 26-192 [facility] Comment on above: Performed By: #### C VDTBH #### [facility] [address] [place] [address] Dr. Ekta Funk CK.MB [Mass/Vol] 1.43 ng/mL Normal <=3.60 [facility] Comment on above: Performed By: #### C VDTBH #### [facility] [address] [place] [address] Dr. Ekta Funk HSTROP 74.1 pg/mL Critically high 4.0-51.3 [facility] Comment on above: Result Comment: CUT- OFF POINTS HAVE BEEN ESTABLISHED BASED ON THE FOURTH UNIVERSAL DEFINITIONS OF MYOCARDIAL INFARCTION. THE UPPER REFERENCE LIMIT (URL) OF TROPONIN, DEFINED THE 99TH PERCENTILE OF cTnI DISTRIBUTION IN A REFERENCE POPULATION, HAS BEEN CONFIRMED THE DECISION THRESHOLD FOR GA DIAGNOSIS. Performed By: #### C VDTBH #### [facility] [address] [place] [address] Dr. Ekta Funk EVELYN 52 ng/mL Normal 9-82 [facility] Comment on above: Performed By: #### C VDTBH #### [facility] [address] [place] [address] Dr. Ekta Funk CBC AUTO DIFFon 10-18-2022 BASO # 0.0 103/ul Normal 0.0-0.1 [facility] Comment on above: Performed By: #### C BC #### [facility] [address] [place] [address] Dr. Ekta Funk Basophils/100 WBC (Bld) 0.3 % Normal 0.2-2.0 [facility] Comment on above: Performed By: #### C BC #### [facility] [address] [place] [address] Dr. Ekta Funk EO # 0.1 103/ul Normal 0.0-0.7 [facility] Comment on above: Performed By: #### C BC #### [facility] [address] [place] [address] Dr. Ekta Funk Eosinophils/100 WBC (Bld) 0.9 % Normal 0.9-7.0 [facility] Comment on above: Performed By: #### C BC #### [facility] [address] [place] [address] Dr. Ekta Funk Erythrocyte distribution width (RBC) [Ratio] 13.2 % Normal 11.0-15.0 [facility] Comment on above: Performed By: #### C BC #### [facility] [address] [address] [address] Ekta Funk Hematocrit (Bld) [Volume fraction] 38.9 % Normal 36.0-48.0 [facility] Comment on above: Performed By: #### C BC #### [facility] [address] [address] [address] Ekta Funk Hemoglobin (Bld) [Mass/Vol] 12.4 g/dL Normal 12.0-16.0 [facility] Comment on above: Performed By: #### C BC #### [facility] [address] [place] [address] Dr. Ekta Funk IG # 0.08 10e3/ul Critically high 0.00-0.03 [facility] Comment on above: Performed By: #### C BC #### [facility] [address] [place] [address] Dr. Ekta Funk IG % 0.5 % Normal 0.0-0.5 [facility] Comment on above: Performed By: #### C BC #### [facility] [address] [address] [address] Ekta Funk LYMPH # 1.4 103/ul Normal 1.2-3.8 [facility] Comment on above: Performed By: #### C BC #### [facility] [address] [place] [address] Dr. Ekta Funk Lymphocytes/100 WBC (Bld) 9.6 % Critically low 20.5-60.0 [facility] Comment on above: Performed By: #### C BC #### [facility] [address] [place] [address] Dr. Ekta Funk MANUAL DIFF REQ NO Normal [facility] Comment on above: Performed By: #### C BC #### [facility] [address] [place] [address] Dr. Ekta Funk MCH (RBC) [Entitic mass] 32.3 pg Normal 26.7-34.0 [facility] Comment on above: Performed By: #### C BC #### [facility] [address] [address] [address] Ekta Funk MCHC (RBC) [Mass/Vol] 31.9 g/dL Normal 29.9-35.2 [facility] Comment on above: Performed By: #### C BC #### [facility] [address] [address] [address] Ekta Funk MCV (RBC) [Entitic vol] 101.3 fL Critically high 81.0-99.0 [facility] Comment on above: Performed By: #### C BC #### [facility] [address] [address] [address] Ekta Funk MONO # 0.9 103/ul Critically high 0.3-0.8 [facility] Comment on above: Performed By: #### C BC #### [facility] [address] [place] [address] Dr. Ekta Funk Monocytes/100 WBC (Bld) 6.3 % Normal 1.7-12.0 [facility] Comment on above: Performed By: #### C BC #### [facility] [address] [address] [address] Ekta Funk NEUT # 12.0 103/ul Critically high 1.4-6.5 [facility] Comment on above: Performed By: #### C BC #### [facility] [address] [place] [address] Dr. Ekta Funk Neutrophils/100 WBC (Bld) 82.4 % Critically high 43.0-75.0 [facility] Comment on above: Performed By: #### C BC #### [facility] [address] [address] [address] Ekta Funk Platelet mean volume (Bld) [Entitic vol] 9.7 fL Normal 9.5-13.5 [facility] Comment on above: Performed By: #### C BC #### [facility] [address] [address] [address] Ekta Funk PLT 176 103/ul Normal 150-450 [facility] Comment on above: Performed By: #### C BC #### [facility] [address] [address] [address] Ekta Funk RBC 3.84 106/ul Critically low 4.20-5.40 [facility] Comment on above: Performed By: #### C BC #### [facility] [address] [address] [address] Ekta Funk WBC 14.6 103/ul Critically high 4.0-11.0 [facility] Comment on above: Performed By: #### C BC #### [facility] [address] [address] [address] Ekta Funk FREE THYROXINE INDEX T7on FTI 2.34 Normal 1.30-4.50 [facility] Comment on above: Performed By: #### C VDTBH #### [facility] [address] [place] [address] Dr. Ekta Funk T3U 36.0 % Normal 30.0-39.0 [facility] Comment on above: Performed By: #### C VDTBH #### [facility] [address] [place] [address] Dr. Ekta Funk T4 [Mass/Vol] 6.50 ug/dL Normal 4.80-13.90 [facility] Comment on above: Performed By: #### C VDTBH #### [facility] [address] [place] [address] Dr. Ekta Funk GLYCOHEMOGLOBIN A1Con 2022 ADA RECOMMENDATION SEE BELOW Normal [facility] Comment on above: Result Comment: ADA RECOMMENDED LIMIT 4.0 - 6.0 ADA THERAPEUTIC TARGET < 7.0 ACTION SUGGESTED > 7.0 Performed By: #### B 12FOL, VITAD, IRON #### [facility] [address] [place] [address] Dr. Ekta Funk Glucose [Mass/Vol] 140 mg/dL Normal [facility] Comment on above: Performed By: #### B 12FOL, VITAD, IRON #### [facility] [address] [place] [address] Dr. Ekta Funk HbA1c (Bld) [Mass fraction] 6.5 % Critically high 4.5-6.2 [facility] Comment on above: Performed By: #### B 12FOL VITAD, IRON #### [facility] [id number] Ekta Funk IRONon 10-18-2022 Iron [Mass/Vol] 62.0 ug/dL Normal 50.0-170.0 [facility] Comment on above: Performed By: #### B 12FOL VITAD, IRON #### [facility] [id number] Ekta Funk LIPID PROFILEon 10-18-2022 CHOL-HDL RATIO NORM SEE BELOW Normal [facility] Comment on above: Result Comment: 3.3 - 4.4 LOW RISK 4.4 - 7.1 AVERAGE RISK 7.1 - 11.0 MODERATE RISK >11.0 HIGH RISK Performed By: #### C VDTBH #### [facility] [address] [address] [address] Ekta Funk Cholesterol [Mass/Vol] 242 mg/dL Critically high <=200 [facility] Comment on above: Performed By: #### C VDTBH #### [facility] [address] [address] [address] Ekta Funk Cholesterol in HDL [Mass/Vol] 74 mg/dL Critically high 40-60 [facility] Comment on above: Performed By: #### C VDTBH #### [facility] [address] [address] [address] Ekta Funk Cholesterol in LDL [Mass/Vol] 139.4 mg/dL Normal [facility] Comment on above: Performed By: #### C VDTBH #### [facility] [address] [address] [address] Ekta Funk Cholesterol.total/Ch olesterol in HDL [Mass ratio] 3.3 {ratio} Normal [facility] Comment on above: Performed By: #### C VDTBH #### [facility] [address] [address] [address] Ekta Funk HDL NORMAL > or = 60 mg/dl - LO W CARDIOVASCULAR RISK <40 mg/dl - HIGH CARDIOVASCULAR RISK Normal [facility] Comment on above: Performed By: #### C VDTBH #### [facility] [address] [place] [address] Dr. Ekta Funk LDL CALC NORMAL SEE BELOW Normal [facility] Comment on above: Result Comment: <100 mg/dl OPTIMAL 100 - 129 mg/dl NEAR OR ABOVE OPTIMAL 130 - 159 mg/dl BORDERLINE HIGH 160 - 189 mg/dl HIGH >190 mg/dl VERY HIGH Performed By: #### C VDTBH #### [facility] [address] [address] [address] Ekta Funk Triglyceride [Mass/Vol] 143 mg/dL Normal <=150 [facility] Comment on above: Performed By: #### C VDTBH #### [facility] [address] [place] [address] Dr. Ekta Funk VLDL CALC 28.6 mg/dL Normal [facility] Comment on above: Performed By: #### C VDTBH #### [facility] [address] [place] [address] Dr. Ekta Funk PROF 14(COMP METB)on 023 Albumin [Mass/Vol] 2.8 g/dL Critically low 3.4-5.0 [facility] Comment on above: Performed By: #### C VDTBH #### [facility] [address] [place] [address] Dr. Ekta Funk Albumin/Globulin [Mass ratio] 0.7 {ratio} Normal [facility] Comment on above: Performed By: #### C VDTBH #### [facility] [address] [place] [address] Dr. Ekta Funk ALP [Catalytic activity/Vol] 90 U/L Normal 46-116 [facility] Comment on above: Performed By: #### C VDTBH #### [facility] [address] [place] [address] Dr. Ekta Funk ALT [Catalytic activity/Vol] 26 U/L Normal 14-59 [facility] Comment on above: Performed By: #### C VDTBH #### [facility] [address] [address] [address] Ekta Funk Anion gap [Moles/Vol] 14.5 mmol/L Normal [facility] Comment on above: Performed By: #### C VDTBH #### [facility] [address] [address] [address] Ekta Funk AST [Catalytic activity/Vol] 14 U/L Critically low 15-37 [facility] Comment on above: Performed By: #### C VDTBH #### [facility] [address] [address] [address] Ekta Funk Bilirubin [Mass/Vol] 0.4 mg/dL Normal 0.2-1.0 [facility] Comment on above: Performed By: #### C VDTBH #### [facility] [address] [place] [address] Dr. Ekta Funk Calcium [Mass/Vol] 8.9 mg/dL Normal 8.5-10.1 [facility] Comment on above: Performed By: #### C VDTBH #### [facility] [address] [address] [address] Ekta Funk Chloride [Moles/Vol] 106 mmol/L Normal 98-107 [facility] Comment on above: Performed By: #### C VDTBH #### [facility] [address] [place] [address] Dr. Ekta Funk CO2 [Moles/Vol] 23.5 mmol/L Normal 21.0-32.0 [facility] Comment on above: Performed By: #### C VDTBH #### [facility] [address] [address] [address] Ekta Funk Creatinine [Mass/Vol] 1.70 mg/dL Critically high 0.55-1.02 [facility] Comment on above: Performed By: #### C VDTBH #### [facility] [address] [address] [address] Ekta Funk EGFR-AF KUWAITI 36 mL/min/1.73m2 Critically low >=60 [facility] Comment on above: Performed By: #### C VDTBH #### [facility] [address] [address] [address] Ekta Funk EGFR-NON AF [place]I 29 mL/min/1.73m2 Critically low >=60 [facility] Comment on above: Performed By: #### C VDTBH #### [facility] [address] [address] [address] Ekta Funk Globulin (S) [Mass/Vol] 4.0 g/dL Normal [facility] Comment on above: Performed By: #### C VDTBH #### [facility] [address] [address] [address] Ekta Funk Glucose [Mass/Vol] 99 mg/dL Normal 74-106 [facility] Comment on above: Performed By: #### C VDTBH #### [facility] [address] [address] [address] Ekta Funk Potassium [Moles/Vol] 5.0 mmol/L Normal 3.5-5.1 [facility] Comment on above: Performed By: #### C VDTBH #### [facility] [address] [address] [address] Ekta Funk Protein [Mass/Vol] 6.8 g/dL Normal 6.4-8.2 [facility] Comment on above: Performed By: #### C VDTBH #### [facility] [address] [address] [address] Ekta Fnuk Sodium [Moles/Vol] 139 mmol/L Normal 136-145 [facility] Comment on above: Performed By: #### C VDTBH #### [facility] [address] [address] [address] Ekta Funk Urea nitrogen [Mass/Vol] 36.0 mg/dL Critically high 7.0-18.0 [facility] Comment on above: Performed By: #### C VDTBH #### [facility] [address] [address] [address] Ekta Funk Urea nitrogen/Creatinine [Mass ratio] 21.2 mg/mg Normal [facility] Comment on above: Performed By: #### C VDTBH #### [facility] [address] [address] [address] Ekta Funk TSHon 10-18-2022 TSH 0.910 uIU/mL Normal 0.358-3.740 [facility] Comment on above: Performed By: #### C VDTBH #### [facility] [address] [address] [address] Ekta Funk Covid-19 PCR ([facility])on 09-10 SARS-CoV-2 (COVID-19) RNA GANESH+probe Ql (Unsp spec) Detected Abnormal NOT DETECTED [facility] Comment on above: Result Comment: This test is not yet approved or cleared by the [place] FDA. When there are no FDA-approved or cleared tests available, and other criteria are met, FDA can make tests available under an emergency access mechanism called an Emergency Use Authorization (EUA). The EUA for this test is supported by the [place] of Health and Human Service's declaration that [...] used). Performed By: #### C MP #### [facility] [address] [place] [address] Dr. Ekta Funk INFLUENZA A AND B AGon 09-[facility] Normal [facility] Comment on above: Result Comment: Nega tive for Flu A protein angiten. Infection due to Flu A cannot be ruled out. Flu A angiten in the sample may be below the detection limit of the test. Performed By: #### B 12FOL, VITAD, IRON #### [facility] [address] [place], [place] [id number] Dr. Ekta Funk INFLUBNEG SEE BELOW Normal [facility] Comment on above: Result Comment: Nega tive for Flu B protein antigen. Infection due to Flu B cannot be ruled out. Flu B antigen in the sample may be below the detection limit of the test. Performed By: #### B 12FOL, VITAD, IRON #### [facility] [address] [address] [address] Ekta Funk INFLUENZA A AG Negative Normal NEGATIVE SEE COMMENT [facility] Comment on above: Performed By: #### B 12FOL, VITAD, IRON #### [facility] [address] [address] [address] Ekta Funk INFLUENZA B AG Negative Normal NEGATIVE SEE COMMENT [facility] Comment on above: Performed By: #### B 12FOL, VITAD, IRON #### [facility] [address] [address] [address] Ekta Funk CAROTID ART BILon 022 [...] by: GODWIN BECK Date: 2022-05-26 16:06 Normal [facility] MRI BRAIN WO CONon 2 MRI BRAIN [...] by: DANIEL MARIE Date: 2022-05-25 10:45 Normal [facility] ECHOCARDIO M/2D COMPLETEon 0 05-24-2022 ECHOCARDIO M/2D COMPLETE Patient: SHEILA MAC Exam Date: 05/24/2022 : 1950 Gender:F Ordering : DR KRZYSZTOF HARP . Admission #: [id number] Family : Order #: [id number] CLICK HERE TO VIEW EXAM ECHOCARDIOGRAM REPORT [...] M.D. on 05/24/2022 at 14:34 Approved by: Sylwai Mckay M.D. on 05/24/2022 at 14:45 Normal [facility] BASIC METABOLIC PANELon 11-08 Calcium mass conc 9.4 mg/dL Normal 8.6-10.3 [facility] Comment on above: Order Comment: No: D o not add to previous draw Performed By: #### 0 0071 #### [address] Chloride molar conc 108 mmol/L High 98-107 [facility] Comment on above: Order Comment: No: D o not add to previous draw Performed By: #### 0 0071 #### [facility] [address] [place] [address], [place] CO2 molar conc 22 mmol/L Normal 21-31 [facility] Comment on above: Order Comment: No: D o not add to previous draw Performed By: #### 0 0071 #### [facility] [address] [place] [address], [place] Creatinine mass conc 1.18 mg/dL Normal 0.60-1.20 [facility] Comment on above: Order Comment: No: D o not add to previous draw Performed By: #### 0 0071 #### [facility] [address] [place] [address], [place] GFR/1.73 sq M predicted among blacks MDRD vol rate/area (S/P/Bld) 55 ml/min/1.73sq m Abnormal >60 The [facility] Comment on above: Order Comment: No: D o not add to previous draw Performed By: #### 0 0071 #### [facility] [address] [place] [address], [place] GFR/1.73 sq M predicted among non-blacks MDRD vol rate/area (S/P/Bld) 45 ml/min/1.73sq m Abnormal >60 [facility] Comment on above: Order Comment: No: D o not add to previous draw Performed By: #### 0 0071 #### [facility] [address] [place] [address], [place] Glucose mass conc 166 mg/dL High 70-100 [facility] Comment on above: Order Comment: No: D o not add to previous draw Performed By: #### 0 0071 #### [facility] [address] [place] [address], [place] Potassium molar conc 4.1 mmol/L Normal 3.5-5.1 [facility] Comment on above: Order Comment: No: D o not add to previous draw Performed By: #### 0 0071 #### [facility] [address] [place] [address], [facility] Sodium molar conc 140 mmol/L Normal 136-145 [facility] Comment on above: Order Comment: No: D o not add to previous draw Performed By: #### 0 0071 #### [facility] [address] [place] [address], [facility] Urea nitrogen mass conc 21 mg/dL Normal 7-25 [facility] Comment on above: Order Comment: No: D o not add to previous draw Performed By: #### 0 0071 #### [facility] [address] [place] [address], [facility] CBC COMPLETE BLOOD COUNTon 11-20-2018 Erythrocyte distribution width Ratio (RBC) 12.9 % Normal 11.5-15.0 [facility] Comment on above: Order Comment: No: D o not add to previous draw Performed By: #### 5 [id number] #### [facility] [address] [place] [address], [facility] Hematocrit Volume Fraction (Bld) 36.7 % Normal 36.0-45.0 [facility] Comment on above: Order Comment: No: D o not add to previous draw Performed By: #### 5 [id number] #### [facility] [address] [place] [address], [facility] Hemoglobin mass conc (Bld) 12.4 g/dL Normal 12.0-15.0 [facility] Comment on above: Order Comment: No: D o not add to previous draw Performed By: #### 5 [id number] #### [facility] [address] [place] [address], [facility] MCH Entitic mass (RBC) 31.2 pg Normal 27.0-33.0 [facility] Comment on above: Order Comment: No: D o not add to previous draw Performed By: #### 5 [id number] #### [facility] [address] MCHC mass conc (RBC) 33.8 g/dL Normal 32.0-35.0 [facility] Comment on above: Order Comment: No: D o not add to previous draw Performed By: #### 5 [id number] #### [facility] [address] MCV Entitic volume (RBC) 92.4 fL Normal 82.0-98.0 [facility] Comment on above: Order Comment: No: D o not add to previous draw Performed By: #### 5 [id number] #### [facility] [address] Nucleated RBC/100 WBC Ratio (Bld) 0 % Normal 0-0 [facility] Comment on above: Order Comment: No: D o not add to previous draw Performed By: #### 5 [id number] #### [facility] [address] [facility] [place] [address], [facility] PLAT CNT 227 10*3/uL Normal 150-400 The [facility] Comment on above: Order Comment: No: D o not add to previous draw Performed By: #### 5 [id number] #### [facility] [address] [facility] RBC #/vol (Bld) 3.97 10*6/uL Normal 3.80-5.00 The [facility] Comment on above: Order Comment: No: D o not add to previous draw Performed By: #### 5 [id number] #### [facility] [address] [place] [address], [facility] WBC #/vol (Bld) 5.55 10*3/uL Normal 4.00-10.60 The [facility] Comment on above: Order Comment: No: D o not add to previous draw Performed By: #### 5 [id number] #### [facility] [address] Cardiovascular Lab Reporton 11-20-2018 Cardiovascular Lab Report [facility] Patient Name: [facility] Rahel Sosa MR #: [id number] Department of Physician: [facility] [place] Shellie Gaspar M.D. Division of Service Date: 11/20/2018 Cardiology Birthdate: 1950 Adult Cardiovascular Room #: 3AB 229192 Services [facility] [address] [place], [place] [address] Cardiovascular Laboratory Report INDICATION: The patient is a 68-year-old woman who was evaluated in Cardiology Clinic because of new onset symptoms of shortness of breath on mild exertion. Her stress test showed evidence of ygoln-go-[id number] area of inferoapical ischemia; because of that, she was referred for cardiac catheterization. PROCEDURES: 1. Right heart catheterization. 2. Bilateral selective coronary angiography. 3. Limited right femoral angiography. METHOD: Procedure was explained patient with risks and benefits. She signed informed consent. 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 The right groin area was prepped and draped in usual fashion. Using micropuncture technique, the right common femoral artery was accessed. The inner cannula was advanced. Limited femoral angiography was performed followed by upsizing to a 6-Nepalese x 11 cm sheath. Access was also obtained using the same technique in the right common femoral vein and a 6-Nepalese x 11 cm sheath was placed. A 6-Nepalese Michel catheter was used for right heart catheterization with measurement of pressures and calculation of cardiac output using the estimated Ivory method. Michel catheter was removed. Bilateral selective coronary angiography was then performed using 6-Nepalese JL4 and JR4 diagnostic catheters. Catheters were [...] A Bong Gaspar M.D. Date Dict: 11/20/2018/09:00 A/oBng Gaspar M.D. Date Trans: 11/20/2018 09:31 Blane/alvina [id number] cc: Krzysztof Harp M.D. [address] [address] Normal The [facility] BASIC METABOLIC PANELon 11-08 Calcium mass conc 9.5 mg/dL Normal 8.6-10.3 The [facility] Comment on above: Order Comment: No: D o not add to previous draw Performed By: #### 0 [id number] #### [facility] [address] [place] [address], [facility] Chloride molar conc 105 mmol/L Normal 98-107 The [facility] Comment on above: Order Comment: No: D o not add to previous draw Performed By: #### 0 0071 #### [facility] [address] [place] [address], [place] CO2 molar conc 24 mmol/L Normal 21-31 The [facility] Comment on above: Order Comment: No: D o not add to previous draw Performed By: #### 0 0071 #### [facility] [address] [place] [address], [place] Creatinine mass conc 1.42 mg/dL High 0.60-1.20 The [facility] Comment on above: Order Comment: No: D o not add to previous draw Performed By: #### 0 [id number] #### [facility] [address] [place] [address], [place] GFR/1.73 sq M predicted among blacks MDRD vol rate/area (S/P/Bld) 45 ml/min/1.73sq m Abnormal >60 The [facility] Comment on above: Order Comment: No: D o not add to previous draw Performed By: #### 0 0071 #### [facility] [address] [place] [address], [place] GFR/1.73 sq M predicted among non-blacks MDRD vol rate/area (S/P/Bld) 36 ml/min/1.73sq m Abnormal >60 The [facility] Comment on above: Order Comment: No: D o not add to previous draw Performed By: #### 0 0071 #### [facility] [address] [place] [address], [place] Glucose mass conc 86 mg/dL Normal 70-100 The [facility] Comment on above: Order Comment: No: D o not add to previous draw Performed By: #### 0 0071 #### [facility] [address] [place] [address], [place] Potassium molar conc 4.2 mmol/L Normal 3.5-5.1 The [facility] Comment on above: Order Comment: No: D o not add to previous draw Performed By: #### 0 0071 #### [facility] [address] [place] [address], [facility] Sodium molar conc 138 mmol/L Normal 136-145 The [facility] Comment on above: Order Comment: No: D o not add to previous draw Performed By: #### 0 0071 #### [facility] [address] [place] [address], [facility] Urea nitrogen mass conc 19 mg/dL Normal 7-25 The [facility] Comment on above: Order Comment: No: D o not add to previous draw Performed By: #### 0 0071 #### [facility] [address] CBC COMPLETE BLOOD COUNTon 0 - Erythrocyte distribution width Ratio (RBC) 13.0 % Normal 11.5-15.0 [facility] Comment on above: Order Comment: No: D o not add to previous draw Performed By: #### 5 [id number] #### [facility] [address] Hematocrit Volume Fraction (Bld) 38.3 % Normal 36.0-45.0 The [facility] Comment on above: Order Comment: No: D o not add to previous draw Performed By: #### 5 [id number] #### [facility] [address] [place] [address], [facility] Hemoglobin mass conc (Bld) 12.6 g/dL Normal 12.0-15.0 The [facility] Comment on above: Order Comment: No: D o not add to previous draw Performed By: #### 5 [id number] #### [facility] [address] [place] [address], [facility] MCH Entitic mass (RBC) 31.1 pg Normal 27.0-33.0 The [facility] Comment on above: Order Comment: No: D o not add to previous draw Performed By: #### 5 [id number] #### [facility] [address] [place] [address], [facility] MCHC mass conc (RBC) 32.9 g/dL Normal 32.0-35.0 The [facility] Comment on above: Order Comment: No: D o not add to previous draw Performed By: #### 5 [id number] #### [facility] [address] [place] [address], [facility] MCV Entitic volume (RBC) 94.6 fL Normal 82.0-98.0 The [facility] Comment on above: Order Comment: No: D o not add to previous draw Performed By: #### 5 [id number] #### [facility] [address] Nucleated RBC/100 WBC Ratio (Bld) 0 % Normal 0-0 The [facility] Comment on above: Order Comment: No: D o not add to previous draw Performed By: #### 5 [id number] #### [facility] [address] [place] [address], [facility] PLAT CNT 266 10*3/uL Normal 150-400 The [facility] Comment on above: Order Comment: No: D o not add to previous draw Performed By: #### 5 [id number] #### [facility] [address] [place] [address], [facility] RBC #/vol (Bld) 4.05 10*6/uL Normal 3.80-5.00 The [facility] Comment on above: Order Comment: No: D o not add to previous draw Performed By: #### 5 [id number] #### [facility] [address] [place] [address], [facility] WBC #/vol (Bld) 9.01 10*3/uL Normal 4.00-10.60 The [facility] Comment on above: Order Comment: No: D o not add to previous draw Performed By: #### 5 [id number] #### [facility] [address] PROTHROMBIN TIMEon 9 INR Coag RelTime (PPP) 1.07 {INR} Normal 0.91-1.16 [facility] Comment on [...] 1995;108:231S-246S. Performed By: #### 5 [id number] #### [address] Prothrombin time (PT) Coag time (PPP) 13.9 s Normal 12.3-14.8 The [facility] Comment on above: Order Comment: No: D o not add to previous draw Result Comment: ALL RESULTS MUST BE INTERPRETED WITH RESPECT TO BLOOD DRAWING ARTIFACT OR DILUTION ERROR OF ANTICOAGULANT AT THE TIME OF SAMPLING. Performed By: #### 5 [id number] #### [address] Vital Signs Date Time Vital Sign Value Performing Clinician Joel mcclellan 07-14-2024 13:28-0500 Body mass index (BMI) [Ratio] 23.52 kg/m2 Raven Sesay DO Work Phone: [facility] 07-14-2024 13:28-0500 Body weight 60.24 kg Christopher Shama DO Work Phone: [facility] 07-14-2024 13:28-0500 Diastolic blood pressure 101 mm[Hg] Christopher Shama DO Work Phone: [facility] 07-14-2024 13:28-0500 Heart rate 87 /min Christopher Shama DO Work Phone: [facility] 07-14-2024 13:28-0500 SaO2% (BldA) [Mass fraction] 91 % Christopher Shama DO Work Phone: [facility] 07-14-2024 13:28-0500 Systolic blood pressure 155 mm[Hg] Christopher Shama DO Work Phone: [facility] 03-26-2024 11:35-0400 Diastolic blood pressure 106 mm[Hg] MD Krzysztof Harp Work Phone: [facility] 03-26-2024 11:35-0400 Heart rate 76 /min MD Krzysztof Harp Work Phone: [facility] 03-26-2024 11:35-0400 Respiratory rate 18 /min MD Krzysztof Harp Work Phone: [facility] 03-26-2024 11:35-0400 SaO2% (BldA) [Mass fraction] 96 % MD Krzysztof Harp Work Phone: [facility] 03-26-2024 11:35-0400 Systolic blood pressure 152 mm[Hg] MD Krzysztof Harp Work Phone: [facility] 03-26-2024 10:24-0400 Body height 157.48 cm MD Krzysztof Harp Work Phone: [facility] 03-26-2024 10:24-0400 Body weight 62.14 kg MD Krzysztof Harp Work Phone: [facility] 02-19-2024 09:07-0400 Body height 157.48 cm MD Krzysztof Harp Work Phone: [facility] 02-19-2024 09:07-0400 Body mass index (BMI) [Ratio] 24.7 kg/m2 MD Krzysztof Harp Work Phone: [facility] 02-19-2024 09:07-0400 Body weight 61.23 kg MD Krzysztof Harp Work Phone: [facility] 02-19-2024 09:07-0400 Diastolic blood pressure 105 mm[Hg] MD Krzysztof Harp Work Phone: [facility] 02-19-2024 09:07-0400 Heart rate 60 /min MD Krzysztof Harp Work Phone: [facility] 02-19-2024 09:07-0400 Systolic blood pressure 146 mm[Hg] MD Krzysztof Harp Work Phone: [facility] 02-05-2024 13:37-0400 Diastolic blood pressure 47 mm[Hg] MD Krzysztof Harp Work Phone: [facility] 02-05-2024 13:37-0400 Heart rate 78 /min MD Krzysztof Harp Work Phone: [facility] 02-05-2024 13:37-0400 Respiratory rate 16 /min MD Krzysztof Harp Work Phone: [facility] 02-05-2024 13:37-0400 SaO2% (BldA) [Mass fraction] 97 % MD Krzysztof Harp Work Phone: [facility] 02-05-2024 13:37-0400 Systolic blood pressure 122 mm[Hg] MD Krzysztof Harp Work Phone: [facility] 02-05-2024 11:35-0400 Body height 157.48 cm MD Krzysztof Harp Work Phone: [facility] 02-05-2024 11:35-0400 Body temperature 99.1 [degF] MD Krzysztof Harp Work Phone: [facility] 02-05-2024 11:35-8370 Body weight 62.14 kg MD Krzysztof Harp Work Phone: [facility] Encounters Encounter Date Encounter Type Care Provider Facility Start: 07-28-2024 End: 07-28-2024 [facility] Start: 07-22-2024 End: 07-22-2024 ambulatory KRZYSZTOF HARP [facility] Start: 07-17-2024 End: 07-17-2024 Bamboo flowsheet Christopher Shama DO Work Phone: [facility] Start: 07-17-2024 End: 07-17-2024 Bamboo flowsheet Christopher Shama DO Work Phone: [facility] Start: 07-17-2024 End: 07-17-2024 Patient encounter procedure Raven Sesay DO Work Phone: [facility] Comment on above: Cervical radiculopat hy (Primary Dx); Paresthesia Start: 07-17-2024 End: 07-17-2024 ambulatory RAVEN SESAY Not Available Start: 07-16-2024 End: 07-16-[address] [facility] Start: 07-15-2024 End: 07-15-2024 ambulatory CLEVE SHETH Not Available Start: 07-15-2024 End: 07-15-2024 Office outpatient visit 10 minutes Cleve Sheth DO Work Phone: [facility] Comment on above: Chronic right hip pa in (Primary Dx); Sacral insufficiency fracture with routine healing, subsequent encounter; Closed fracture of multiple pubic rami, right, initial encounter ([facility]) Start: 07-14-2024 End: 07-14-2024 Bamboo flowsheet Christopher Shama DO Work Phone: [facility] Start: 07-14-2024 End: 07-14-2024 Bamboo flowsheet Christopher Shama DO Work Phone: [facility] Start: 07-14-2024 End: 07-14-2024 Office outpatient new 30 minutes Raven Connorett DO Work Phone: [facility] Comment on above: Paresthesia (Primary Dx) Start: 07-14-2024 End: 07-14-2024 ambulatory RAVEN SESAY Not Available Start: 06-17-2024 End: 06-17-2024 Bamboo flowsheet Cleve Sheth DO Work Phone: [facility] Start: 06-17-2024 End: 06-17-2024 Bamboo flowsheet Cleve Sheth DO Work Phone: [facility] Start: 06-17-2024 End: 06-17-2024 Office outpatient visit 25 minutes Cleve Sheth DO Work Phone: [facility] Comment on above: Chronic right hip pa in (Primary Dx); Sacral insufficiency fracture, initial encounter ([facility]); Closed fracture of multiple pubic rami, right, initial encounter ([facility]) Start: 06-17-2024 End: 06-17-2024 ambulatory CLEVE SHETH Not Available Start: 06-13-2024 End: 06-13-2024 Emergency department patient visit KRZYSZTOF Marmolejo Alison [facility] Start: 06-12-2024 End: 06-12-2024 ambulatory CLEVE SHETH Not Available Start: 06-05-2024 End: 06-18-2024 Telephone encounter Miranda Case PT [facility] Comment on above: PT Initial Eval [...] surgery center MD Krzysztof Harp Work Phone: [facility] Work Phone: Start: 03-26-2024 End: 03-26-2024 ambulatory MD Krzysztof Harp Work Phone: [facility] Work Phone: Start: 02-19-2024 End: 02-19-2024 ambulatory MD Krzysztof Harp Work Phone: [facility] Work Phone: Start: 02-19-2024 End: 02-19-2024 Patient encounter procedure MD Krzysztof Harp Work Phone: [facility] Work Phone: Start: 02-05-2024 Non-patient / Non-visit MD Krzysztof Harp Work Phone: [facility] Work Phone: Start: 02-05-2024 End: 02-05-2024 Admission to same day surgery center MD Krzysztof Harp Work Phone: [facility] Work Phone: Start: 02-05-2024 End: 02-05-2024 ambulatory MD Krzysztof Harp Work Phone: [facility] Work Phone: Start: 01-16-2024 Non-patient / Non-visit MD Krzysztof Harp Work Phone: [facility] Work Phone: Start: 01-09-2024 End: 01-09-2024 ambulatory DARSHAN HERNANDEZ Not Available Start: 01-07-2024 ambulatory KRZYSZTOF HARP [facility] Start: 01-16-2023 ambulatory JNEDWINA GARCIA . Facility :[facility] Start: 01-15-2023 End: 01-15-2023 ambulatory APRIL CASTANEDA . Facility:[facility] Start: 01-10-2023 End: 01-11-[address] KRZYSZTOF HARP . Facility:[facility] Start: 12-15-2022 End: 12-15-2022 ambulatory APRIL CASTANEDA . Facility:[facility] Start: 12-15-2022 ambulatory RODRIGUEZ RIVERA [facility] Start: 12-05-2022 End: 12-06-[address] KRZYSZTOF [...] End: 11-20-2018 Patient encounter procedure PROVIDER UNKNOWN Facility:[facility] Start: 11-13-2018 End: 11-14-2018 Patient encounter procedure DEFAULT PHYSICIAN Facility:[facility] Start: 10-31-2018 End: 11-01-2018 Patient encounter procedure DEFAULT PHYSICIAN Facility:[facility] Start: 09-23-2018 End: 09-24-2018 Patient encounter procedure DEFAULT PHYSICIAN Facility:[facility] Start: 09-05-2018 End: 09-06-2018 Patient encounter procedure DEFAULT PHYSICIAN Facility:[facility] Procedures Date Procedure Procedure Detail [...] [facility] [address] [place] [id number] Raven Sesay DO [address] [place] [address] [facility] [address] [facility] Start: 07-17-2024 End: 07-17-2024 Patient encounter procedure [facility] Comment on above: Arrived Start: 07-15-2024 End: 07-15-2024 Patient encounter procedure [facility] Start: 07-14-2024 End: 07-14-2025 EMG 1 Extremeity EMG 1 Extremeity Neurology Routine Paresthesia Expected: 07/14/2024, Expires: 07/14/2025 [facility] Work Phone: Comment on above: Expected: 07/14/2024 , Expires: 07/14/2025 Start: 07-14-2024 End: 07-14-2024 Patient encounter procedure [facility] [address] Comment on above: Brachial plexopathy; Ulnar neuropathy of left upper extremity Start: 06-17-2024 End: 06-17-2024 Patient encounter procedure 06/17/2024 1:30 PM EDT Office Visit [facility] [address] [facility] [address] [place] [address] Cleve Sheth, DO [address] [facility] [address] [place] [address] Chronic right hip pain (Primary Dx); Sacral insufficiency fracture, initial encounter (CMS/HCC); Closed fracture of multiple pubic rami, right, initial encounter (CMS/HCC) [facility] Comment on above: Chronic right hip pa in (Primary Dx); Sacral insufficiency fracture, initial encounter (CMS/HCC); Closed fracture of multiple pubic rami, right, initial encounter (CMS/HCC) Start: 05-11-2024 Influenza vaccination Influenza Vacc ine (#1) [facility] Start: 03-26-2024 [facility] Start: 02-05-2024 [facility] Patient Education [facility] Work Phone: Immunizations Immunization Date Immunization Notes Care Provider Kimberly laurent 06-19-2024 influenza virus vacc ine, unspecified formulation Raven Sesay DO Work Phone: [facility] 06-05-2023 Influenza, Seasonal, Quadrivalent, Adjuvanted Cleve Sheth DO Work Phone: [facility] 06-05-2023 influenza virus vacc ine, unspecified formulation Cleve Sheth DO Work Phone: [facility] 06-12-2022 influenza, high dose seasonal, preservative-free Cleve Sheth DO Work Phone: [facility] 05-30-2022 Influenza, High-dose Seasonal, Quadrivalent, Preservative Free Cleve Sheth DO Work Phone: [facility] 06-15-2021 Influenza, High-dose Seasonal, Quadrivalent, Preservative Free Cleve Sheth DO Work Phone: [facility] 01-10-2021 SARS-CoV-2, Unspecified Amando Sheth DO Work Phone: [facility] 06-18-2018 influenza, high dose seasonal, preservative-free Cleve Sheth DO Work Phone: [facility] 05-22-2017 influenza, injectabl e, quadrivalent, preservative free Cleve Sheth DO Work Phone: [facility] 06-14-2016 influenza, high dose seasonal, preservative-free Cleve Sheth DO Work Phone: [facility] 06-03-2015 influenza, high dose seasonal, preservative-free Cleve Sheth DO Work Phone: [facility] 09-10-2014 pneumococcal conjuga te vaccine, 13 valent Cleve Sheth DO Work Phone: [facility] 06-10-2014 influenza, seasonal, injectable Cleve Sheth DO Work Phone: [facility] 08-11-2013 zoster vaccine, live Cleve ponce DO Work Phone: [facility] 07-14-2013 pneumococcal polysaccharide vaccine, 23 valent Cleve Sheth DO Work Phone: [facility] 06-30-2013 seasonal influenza, intradermal, preservative free Cleve Sheth DO Work Phone: [facility] Payers Date Payer Category Payer Self-pay 2021 Medicare [employer] MEDICARE ADVANTAGE [facility] MEDICARE ADVANTAGE [id number] 2021-Present [address] [place] [address] [id number] 2021 Medicare (Managed Care) NEAL Jaleel SHEPHERD ADVANTAGE [id number] 2015 Medicare [id number] 1959 Unknown [id number] 1948 Unknown [id number] 2.16840.1.258905.3.579. 2.647 1948 Unknown [id number] 2.16840.1.960449.3.579. 2.647 1948 Unknown [id number] 2.16840.1.915781.3.579. 2.647 1948 Unknown [id number] 2.16840.1.445179.3.579. 2.647 1948 Unknown [id number] 2.16.840.1.460635.3.579. 2.647 1948 Unknown [id number] 2.16.840.1.354818.3.579. 2.593 1948 Unknown [id number] 2.16.840.1.570589.3.579. 2.593 1948 Unknown [id number] 2.16.840.1.806794.3.579. 2.593 1948 Unknown [id number] 2.16.840.1.184495.3.579. 2.593 1948 Unknown [id number] 2.16.840.1.147291.3.579. 2.593 1948 Unknown [id number] 2.16.840.1.641930.3.579. 2.593 1948 Unknown [id number] 2.16.840.1.387734.3.579. 2.593 1948 Unknown [id number] 2.16.840.1.193433.3.579. 2.593 1948 Unknown [id number] 2.16.840.1.021943.3.579. 2.593 1948 Unknown [id number] 2.16.840.1.325268.3.579. 2.593 1948 Unknown [id number] 2.16840.1.406380.3.579. 2.593 1948 Unknown [id number] 2.840.1.458306.3.579. 2.593 1948 Unknown [id number] 2.16.840.1.957276.3.579. 2.593 1948 Unknown [id number] 2.16.840.1.277524.3.579. 2.593 1948 Unknown [id number] 2.16840.1.100127.3.579. 2.593 1948 Unknown [id number] 2.840.1.910805.3.579. 2.593 1948 Unknown [id number] 2.16840.1.967529.3.579. 2.593 1948 Unknown [id number] 2.16.840.1.150276.3.579. 2.593 1948 Unknown [id number] 2.16.840.1.992893.3.579. 2.593 1948 Unknown [id number] 2.16.840.1.736736.3.579. 2.1286 1948 Unknown [id number] 2.16.840.1.237307.3.579. 2.128 1948 Unknown [id number] 2.16.840.1.773866.3.579. 2.1285 1948 Unknown [id number] 2.16.840.1.148725.3.579. 2.1285 1948 Unknown [id number] 2.16.840.1.282123.3.579. 2.1258 1948 Unknown [id number] 2.16.840.1.491770.3.579. 2.1258 1948 Unknown [id number] 2.16840.1.084058.3.579. 2.1258 1948 Unknown [id number] 2.16840.1.906685.3.579. 2.1258 1948 Unknown [id number] 2.840.1.859144.3.579. 2.1258 1948 Unknown [id number] 2.16840.1.144094.3.579. 2.1258 1948 Unknown [id number] 2.16840.1.777527.3.579. 2.1258 1948 Unknown [id number] 2.16840.1.786151.3.579. 2.1258 1948 Unknown [id number] 2.16840.1.107582.3.579. 2.1258 1948 Unknown [id number] 2.16840.1.865133.3.579. 2.1258 1948 Unknown [id number] 2.16.840.1.193104.3.579. 2.1285 1948 Unknown [id number] 2.16.840.1.447054.3.579. 2.1285 1948 Unknown [id number] 2.16840.1.746393.3.579. 2.1286 Medicare [id number] Unknown Unknown [id number] 2.16.840.1.998011.3.579. 2.531 Unknown [id number] 2.16.840.1.193750.3.579. 2.531 Social History Date Type Detail Facility Start: 05-04-2023 End: 02-05-2024 Tobacco smoking status NHIS Never smoked tobacco (finding) [facility] Start: 1950 Sex Assigned At Female F [facility] Start: 01-09-2024 End: 07-14-2024 Alcoholic beverage intake Lifetime non-drinker (finding) [facility] Start: 01-09-2024 End: 07-14-2024 History of Social function [facility] Start: 01-09-2024 End: 07-14-2024 Tobacco use panel [facility] Start: 1950 Sex assigned at Not [...] Patient: Sheila Mac : 1950 EMG Computer: [employer] Referring Physician: Dr. Raven Sesay EMG: CINTHYA manager clinical applications: Jarrett Palmer RT(R) Office Location: [place] Reason for EMG: c/o numbness/tingling in left [...] of the test. documented in this encounter [facility] 07-15-2024 History of Presen t illness Narrative Images from the original note were not included. HISTORY OF PRESENT ILLNESS: Sheila Mac is an 74 y.o. @ female. Chief complaint RT hip pain RT hip: using calcitonin NS Pt went to [facility] ER 06/13, X-rays done pelvis and lumbar. RX for lidoderm patches given, she states she could hardly walk. RT hip pain x 3-4 months, worsened on 05/31 after going to the grocery store. Denies injury. She had injections at [facility] in April without relief. She saw Dr Harp 06/02 and 06/04, given IM injections-no relief. She is walking better, using rollator. Mild ache in the thigh. Using pain spray daily Saw Dr Harp 06/02 and 06/04. XR done at [facility] 06/02/24. Using hot icy hot. Given IM torodol, Tramadol RX and PT ordered, XR [place] [facility] 06/05/24, MRI [facility] 06/12/24, [facility] ER 06/13/24, lidoderm patches, calcitonin [...] IMAGING: June 05, 2024 x-rays from the [place] office AP pelvis and lateral of the right hip demonstrate an intact hip joint space. There are no fractures detected. The bone has an osteopenic appearance. The joint spaces are symmetric. There is no obvious effusion or soft tissue swelling. Impression: No acute findings on x-rays of the right hip Hemal Sheth D.O. MRI of the right hip from the [facility] center. There is a sacral insufficiency [...] of multiple pubic rami, right, initial encounter ([facility]) S32.591A calcitonin, salmon, (Miacalcin) 200 UNIT/ACT nasal [...] Sheth/ashley Sheth D.O. documented in this encounter [facility] 07-14-2024 History of Presen t illness Narrative [...] headaches. Past Medical History: Diagnosis Date Diabetes ([facility]) Diverticulitis Gastric ulcer GERD (gastroesophageal reflux disease) HTN (hypertension) ([facility]) Osteoporosis ([facility]) Pancreatitis Rheumatic fever Past Surgical History: Procedure Laterality Date APPENDECTOMY BACK SURGERY 1991 HEART CATH HM MAMMOGRAPHY 2012 HYSTERECTOMY Diabetes LUMBAR SPINE SURGERY NECK SURGERY OTHER SURGICAL HISTORY Sigmoid Diverticulosis OTHER SURGICAL HISTORY 2017 perforated ulcer OK ARTHRS KNE SURG W/MENISCECTOMY MED/LAT W/SHVG Right [...] , wrist extensors , wrist flexor , home health specialist strength 5/5. LUE Strength deltoid , biceps , triceps , wrist extensors , wrist flexor , home health specialist strength 5/5. RLE Strength illopsoas, quadriceps, [...] reflex 0 . Metzger's sign negative. Coordination: Bldgco-ov-onga testing and rapid alternating movements are normal [...] and return instructions documented in this encounter [facility] 06-17-2024 History of Presen t illness Narrative Images from the original note were not included. HISTORY OF PRESENT ILLNESS: Sheila Mac is an 74 y.o. @ female. Chief complaint RT hip pain RT hip: here for MRI results [facility] 06/12/24 Pt went to [facility] ER 06/13, X-rays done pelvis and lumbar. RX for lidoderm patches given, she states she could hardly walk. RT hip pain x 2-3 months, worsened on 05/31 after going to the grocery store. Denies injury. She had injections at [facility] in April without relief. She saw [...] Harp 06/02 and 06/04. XR done at [facility] 06/02/24. Using hot icy hot. Given IM torodol, Tramadol RX and PT ordered, XR [place] [facility] 06/05/24, MRI [facility] 06/12/24, [facility] 06/13/24, lidoderm patches I [...] HISTORY: Past Medical History: Diagnosis Date Diabetes ([facility]) Diverticulitis Gastric ulcer GERD (gastroesophageal reflux disease) HTN (hypertension) ([facility]) Osteoporosis ([facility]) Pancreatitis Rheumatic fever ALLERGIES: Allergies Allergen Reactions [...] IMAGING: June 05, 2024 x-rays from the [place] office AP pelvis and lateral of the right hip demonstrate an intact hip joint space. There are no fractures detected. The bone has an osteopenic appearance. The joint spaces are symmetric. There is no obvious effusion or soft tissue swelling. Impression: No acute findings on x-rays of the right hip Hemal Sheth D.O. I reviewed an MRI of the right hip from the [place] [facility] center. There is a sacral insufficiency fracture and suspected insufficiency fractures of the right superior and inferior pubic rami. The right hip joint is intact and there are no fractures in the hip. There is loss of articular cartilage in the right hip consistent with arthritis. ASSESSMENT: ICD-10-CM 1. Chronic right hip pain M25.551 G89.29 2. Sacral insufficiency fracture, initial encounter ([facility]) M84.48XA 3. Closed fracture of multiple pubic rami, right, initial encounter ([facility]) S32.591A calcitonin, salmon, (Miacalcin) 200 UNIT/ACT nasal [...] Sheth/ashley Sheth D.O. documented in this encounter [facility] 06-05-2024 Telephone encounter Note $40.00 copay / Prior auth needed. [facility] 06-05-2024 Miscellaneous Notes $40.00 copay / Prior auth needed. documented in this encounter [facility] 03-26-2024 Procedure note [facility] 02-05-2024 Procedure note [facility] 12-15-2022 Note Cardiology Follow Up Progress Note [...] not included)... [facility] 12-15-2022 Note Review of Systems Cardiovascular: Positive for leg swelling. Respiratory: Positive for shortness of breath. Skin: Positive for color change. Neurological: Positive for headaches. All other systems reviewed and are negative. [facility] 07-25-2022 Note PROCEDURE: MRA NECK WO CON [...] authenticated by: DANIEL MARIE Date: 2022-07-25 13:25 [facility] 05-11-2022 Note PROCEDURE: XR FOOT L T MIN 3 VIEWS HISTORY: Pain in left foot ; acute plantar pain COMPARISON: None. FINDINGS: BONES:No fracture, acute abnormality, or significant arthropathy. SOFT TISSUES:No visible soft tissue swelling. EFFUSION:None visible. OTHER: Negative. IMPRESSION: 1. No acute abnormality, significant degenerative changes, or findings to account for patient's symptoms. Electronically authenticated by: DNAIEL MARIE Date: 2022-05-11 12:51 [facility] 02-14-2022 Note PROCEDURE: XR KNEE L T 4V or > COMPARISON: None. HISTORY: Osteoarthritis FINDINGS: BONES:No fracture, acute abnormality, or significant arthropathy. SOFT TISSUES:Negative. No visible soft tissue swelling. EFFUSION:Moderate suprapatellar joint effusion OTHER: Negative. IMPRESSION: Moderate joint effusion Electronically authenticated by: GODWIN BECK Date: 2022-02-14 17:30 [facility] Evaluation note No assessment inform ation available [facility] Work Phone: Evaluation note Diagnosis Onset Date Duodenal diverticulum acute Hiatal hernia acute IBS (irritable bowel syndrome) acute Screening for colon cancer a cute [facility] Work Phone: Evaluation note* Diagnosis Chronic right hip pain- Primary Sacral insufficiency fracture, initial encounter ([facility]) Closed fracture of multiple pubic rami, right, initial encounter ([facility]) documented [facility] encounter [facility]* Diagnosis Paresthesia- Primary Disturbance of skin sensation documented in this encounter [facility]* Diagnosis Chronic right hip pain- Primary Sacral insufficiency fracture with routine healing, subsequent encounter Closed fracture of multiple pubic rami, right, initial encounter ([facility]) documented in this encounter [facility]* Diagnosis Cervical radiculopathy- Primary Brachial neuritis or radiculitis nos Paresthesia Disturbance of skin sensation documented in this encounter [facility] Author Ben Sanchez [facility] February 05, 2024 1:08pm Note Date/Time February 05, 2024 1:08p m [facility] [address] [place] [address] Gastroenterology H&P Signed Patient: Sheila Mac MR#: [id number] : 1950 Acct:[id number] Age/Sex: 73 / F Adm Date: 4 Loc: Room: Type: [facility] Attending Dr: Ben Sanchez MD Copies [...] 02/05/24 1308 [facility] Work Phone: History and physical note Author Ben Sanchez [facility] March 26, 2024 10:37am Note Date/Time March 26, 2024 10:3 7am [facility] [address] [place] [address] Gastroenterology H&P Signed Patient: Sheila Mac MR#: [id number] : 1950 Acct:[id number] Age/Sex: 73 / F Adm Date: 4 Loc: Room: Type: [facility] Attending Dr: Ben Sanchez MD Copies [...] signed by Ben Sanchez MD> 03/26/24 1037 [facility] Work Phone: Reason for visit Narrative* Consultation (Routine) - Closed Specialty Diagnoses / Procedures Referred By Contoriana t Referred To Contact Neurology Diagnoses Brachial plexopathy Ulnar neuropathy of left upper extremity Procedures OK OFFICE/OUTPATIENT [facility] 60 MINUTES Cleve Sheth DO [address] [address] Phone: tel: fax: Daniel Patiño MD [address] [place] [address] Phone: tel: fax: Referral ID Status Reason Start Date Expiration Date V isits Requested Visits Authorized [id number] Closed Consult and Treat 2024 10/05/2024 1 [...] section and content) DATE CREATED AUTHOR 11/24/2018 [facility] DATE CREATED AUTHOR AUTHOR'S ORGANIZ ATION 12/19/2022 [facility] DATE CREATED AUTHOR AUTHOR'S ORGANIZ ATION 01/18/2023 [facility] DATE CREATED AUTHOR AUTHOR'S ORGANIZ ATION 03/29/2024 [facility] DATE CREATED AUTHOR AUTHOR'S ORGANIZ ATION 07/18/2024 [facility] DATE CREATED AUTHOR AUTHOR'S ORGANIZ ATION 07/19/2024 [facility] EP[facility] DATE CREATED AUTHOR AUTHOR'S ORGANIZ ATION 07/29/2024 [facility] Care Teams (unrecognized sec tion [...] Provide r Active Start: March 26, 2024 [employer] Relationship Specialty Start Date End Date Krzysztof Harp MD [address] [place] [address] PCP - General Family Medicine 01/09/24 [employer] Specialty Start Date End Date Krzysztof Harp MD [address] [place] [address] PCP - General Family Medicine 01/09/24 [employer] Relationship Specialty Start Date End Date Krzysztof Harp MD [address] [place] [address] PCP - General Family Medicine 01/09/24 [employer]er Relationship Specialty Start Date End Date Krzysztof Harp MD [address] [place] [address] PCP - General Family Medicine 01/09/24 [employer]er Relationship Specialty Start Date End Date Krzysztof Harp MD [address] [place] [address] PCP - General Family Medicine 01/09/24 Raven Sesay DO [address] [address] Referring Physician Neurology 07/14/24 [employer] Relationship Specialty Start Date End Date Krzysztof Harp MD [address] [place] [address] PCP - General Family Medicine 01/09/24 Raven Sesay DO [address] [place] [id number] Referring Physician Neurology 07/14/24 [employer]er Relationship Specialty Start Date End Date Krzysztof Harp MD [address] [place] [address] PCP - General Family Medicine 01/09/24 Raven Sesay DO [address] [address] Referring Physician Neurology 07/14/24 [employer]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 [employer] provides no warranty or guarantee of the accuracy or completeness of information in this document.
--- NOTE | 2024-08-01 17:39 | US_ITS ---
The [place] [id number] Patient Name: EDIN SAMANIEGO MRN: [id number] date: 1950 Sex: F Assigned Patient Location: US Current Patient Location: Accession/Order Number: [id number] Exam Date: 08/01/2024 18:00 Report Date: 08/02/2024 05:32 At the request of: KRZYSZTOF THOMPSON Procedure: US venous doppler UE LT EXAMINATION: US venous doppler UE LT HISTORY: LEFT ARM PAIN M79.602 COMPARISON: Ultrasound venous Doppler upper extremity left 03/27/2024 FINDINGS: REGION: Left upper extremity THROMBI: None. COMPRESSIBILITY: Normal compressibility. FLOW: Normal waveform and antegrade flow between 5 and 20 cm/s. OTHER: None. US/US venous doppler UE LT IMPRESSION: 1. No deep vein thrombus within the left upper extremity. Electronically authenticated by: DANIEL PINEDA Date: 08/02/2024 05:32
== END 2024-08-01 16:56 | disposition home or self-care (01) ==
PROVIDERS: PCP Family Medicine; Visit Provider Family Medicine
DX: M79.602 Pain in left arm (principal)
CPT/HCPCS: 93971

== ENCOUNTER 2024-08-19 15:47 | Outpatient (OUT) | payer MEDICARE, SELFPAY ==
--- NOTE | 2024-08-19 15:49 | XR_ITS ---
The [address] [address] Patient Name: EDIN SAMANIEGO MRN: [id number] date: 1950 Sex: F Assigned Patient Location: [facility] Current Patient Location: RAD Accession/Order Number: [id number] Exam Date: 08/19/2024 16:00 Report Date: 08/19/2024 16:42 At the request of: KRZYSZTOF THOMPSON Procedure: XR chest 2V EXAM: XR chest 2V HISTORY: Pulmonary Fibrosis COMPARISON: 10/08/2023 TECHNIQUE: Upright PA and lateral chest x-ray FINDINGS: The heart is not enlarged and the vasculature is not distended. Slight prominence of interstitial markings are seen in the patchy fashion throughout the lungs, which appear chronic in nature. There is flattening of the hemidiaphragms indicating COPD. No acute infiltrate, effusion or pneumothorax is readily identified. Scoliosis and degenerative changes are seen in the spine. XR/XR chest 2V IMPRESSION: No acute infiltrate or evidence of cardiac decompensation. Some chronic changes are present in the overall appearance of the chest is essentially unchanged. Electronically authenticated by: KASSIDY JACKSON Date: 08/19/2024 16:42
== END 2024-08-19 15:48 | disposition home or self-care (01) ==
LOC: RAD 15:47
PROVIDERS: PCP Family Medicine; Visit Provider Family Medicine
DX: J84.10 Pulmonary fibrosis, unspecified (principal)
CPT/HCPCS: 71046

== ENCOUNTER 2024-10-01 09:09 | Outpatient (OUT) | payer MEDICARE, SELFPAY ==
--- NOTE | 2024-10-01 09:28 | XR_ITS ---
The [address] [address] Patient Name: EDIN SAMANIEGO MRN: [id number] date: 1950 Sex: F Assigned Patient Location: LAB Current Patient Location: LAB Accession/Order Number: [id number] Exam Date: 10/01/2024 09:40 Report Date: 10/01/2024 13:18 At the request of: KRZYSZTOF THOMPSON Procedure: XR chest 2V EXAM: XR chest 2V HISTORY: Shortness Of Breath, Chronic Pancreatitis. COMPARISON: 06/21/2024. TECHNIQUE: 2 views. FINDINGS: No focal parenchymal infiltrates are seen. No effusions are noted. Tortuosity is noted of the descending thoracic aorta. XR/XR chest 2V IMPRESSION: No acute findings. Electronically authenticated by: Wendy ARREAGA Date: 10/01/2024 13:18
--- NOTE | 2024-10-01 09:28 | XR_ITS ---
The [address] [address] Patient Name: EDIN SAMANIEGO MRN: [id number] date: 1950 Sex: F Assigned Patient Location: LAB Current Patient Location: LAB Accession/Order Number: [id number] Exam Date: 10/01/2024 09:40 Report Date: 10/01/2024 13:18 At the request of: KRZYSZTOF THOMPSON Procedure: XR lumbar spine min 4V EXAM: XR lumbar spine min 4V HISTORY: Back Pain, Chronic Pancreatitis. COMPARISON: None. TECHNIQUE: 5 views. FINDINGS: There is a curvature of the lumbar spine with the convexity curve towards the left. Multilevel degenerative changes are seen most severe at L5-S1 and L1-L2. No anterior posterior subluxation is seen. Facet joint degenerative changes are also seen predominantly at the lower lumbar levels. If the patient has radiculopathy recommend MRI. XR/XR lumbar spine min 4V IMPRESSION: Degenerative changes as noted. Recommend MRI for further evaluation. Electronically authenticated by: Wendy ARREAGA Date: 10/01/2024 13:18
[2024-10-01 09:29] LABS: Basophils Absolute Auto 0.1 10^3/uL (0.0-0.1); Basophils Percent Auto 1.2 % (0.2-2.0); Eosinophils Absolute Auto 1.1 10^3/uL (0.0-0.7); Eosinophils Percent Auto 10.5 % (0.9-7.0); Hematocrit 37.8 % (36.0-48.0); Hemoglobin 11.9 g/dL (12.0-16.0); Immature Granulocytes Abs Auto 0.12 10^3/uL (0.00-0.03); Immature Granulocytes Pct Auto 1.2 % (0.0-0.5); Lymphocytes Absolute Auto 1.8 10^3/uL (1.2-3.8); Lymphocytes Percent Auto 17.7 % (20.5-60.0); Mean Corpuscular HGB Conc 31.5 g/dL (29.9-35.2); Mean Corpuscular Hemoglobin 30.6 pg (26.7-34.0); Mean Corpuscular Volume 97.2 fL (81.0-99.0); Mean Platelet Volume 9.8 fL (9.5-13.5); Monocytes Absolute Auto 1.1 10^3/uL (0.3-0.8); Neutrophils Absolute Auto 5.9 10^3/uL (1.4-6.5); Neutrophils Percent Auto 58.4 % (43.0-75.0); Platelet Count 299 10^3/uL (150-450); Red Blood Count 3.89 10^6/uL (4.20-5.40); Red Cell Distribution Width 13.6 % (11.0-15.0)
--- OUTSIDE RECORDS SUMMARY | 2024-10-01 09:34 | XMS_ITS | CCD ---
Author Organization [facility] Care Team Providers Care Recycling Tech Name Role Phone PHYSICIAN, DEFAULT Admitting Unavailable [...] PROVIDER Attending Unavailable KRZYSZTOF HARP Referring Unavailable MARIOYKRZYSZTOF Primary Care Unavailable RODRIGUEZ RIVERA Attending Unavailable HOY ., DR BLANKENSHIP Attending Unavailable HOY ., DR BLANKENSHIP Consulting Unavailable HOY ., DR BLANKENSHIP Primary Care Unavailable HOY ., DR BLANKENSHIP Admitting Unavailable PISCATAWAY, DR GODWIN Cardona Consulting Unavailable HOY ., [...] Unavailable HOY ., DR BLANKENSHIP Admmilton Unavailable LEONEL ., APRIL Admitting Unavailable LEONEL [...] JUMMA, KYLE Consulting Unavailable BOYD, VANESSA Consulting Unavailblane ELAINE, [...] DR BLANKENSHIP Consulting Unavailable HOY ., DR BLANKENHSIP Attending Unavailable HOY ., DR BLANKENSHIP Primary [...] BLANKENSHIP Admmilton Unavailable HOY ., DR BLANKENSHIP Admmiltno Unavailable HOY ., DR BLANKENSHIP Attending Unavailable HOY ., DR BLANKENSHIP Consulting Unavailable HOY ., DR BLANKENSHIP Primary Care Unavailable WEST, DR GODWIN Cardona Consulting Unavailable HOY ., DR BLANKENSHIP Attending Unavailable HOY ., DR BLANKENSHIP Consulting Unavailable HOY ., DR BLANKENSHIP Primary Care Unavailable HOY ., DR BLANKENSHIP Admmilotn Unavailable WEST, DR GODWIN Cardona Consulting Unavailable HOY ., DR BLANKENSHIP Attending Unavailable HOY ., DR BLANKENSHIP Consulting Unavailable HOY ., DR BLANKENSHIP Primary Care Unavailable HOY ., DR BLANKENSHIP Admitting Unavailable ZIEBER, DR DANIEL Erazo Consulting Unavailable LEONEL ., APRIL Consulting Unavailable LEONEL ., APRIL Admitting Unavailable LEONEL ., APRIL Attending Unavailable MARIOY ., DR BLANKENSHIP Primary Care Unavailable HOY ., DR BLANKENSHIP Admitting Unavailable HOY ., DR BLANKENSHIP Consulting Unavailable HOY ., DR BLANKENSHIP Attending Unavailable HOY ., DR BLANKENSHIP Primary Care Unavailable MD Ben Sanchez Attending Provider MD Krzysztof Harp Primary Care Provider [phone] Ben Sanchez Admitting Unavailable Ben Sanchez Attending Unavailable Marioy, Krzysztof M Primary Care Unavailable Ben Sanchez Admitting Unavailable Ben Sanchez Attending Unavailable Marioy, Krzysztof M Primary Care Unavailable Krzysztof Harp MD Primary Care Provider [phone] Raven Sesay DO Unavailable [phone] KRZYSZTOF HARP Referring Unavailable HOY, KRZYSZTOF M Primary Care Unavailable HOY, KRZYSZTOF M Referring Unavailable HOY, KRZYSZTOF M Primary Care Unavailable NAVI CARCAMO Attending Unavailable HOY, KRZYSZTOF M Referring Unavailable HOY, KRZYSZTOF M Primary Care Unavailable HOY, KRZYSZTOF M Primary Care Unavailable FREEMAN WARD Attending Unavailab le HOY, KRZYSZTOF M Referring Unavailable HOY, KRZYSZTOF M Primary Care Unavailable CHRISTOPHER, MENNATALLAH M Admitting Unavailable CHRISTOPHER, MENNATALLAH M Attending Unavailable HOY, KRZYSZTOF M Primary Care Unavailable DARSHAN HERNANDEZ Attending Unavailable MERYLCLEVE Attending Unavailable MERYLCLEVE Attending Unavailable MERYLCLEVE Attending Unavailable MERYLCLEVE WING Referring Unavailable MERYLCLEVE WING Referring Unavailable MERYLCLEVE Attending Unavailable RAVEN ESSAY Attending Unavailable CLEVE SHETH Referring Unavailable CLEVE SHETH Attending Unavailable RAVEN SESAY Attending Unavailable RAVEN SESAY Attending Unavailable Allergies Allergy Classification Reported Allergen(s) Allergy Type Date of Onset Reaction(s) Facility (8 sources) Morphine; Translations: [MORPHINE] Drug Allergy 7 Vomiting [facility] Repository (5 sources) NSAIDs; Translations: [NSAIDS (NON-STEROIDAL ANTI-INFLAMMATOR Y DRUG)] Drug allergy (disorder) 9 [facility] (1 source) Penicillin Drug Allergy 9 [facility] (1 source) predniSONE Drug Allergy 9 [facility] (2 sources) Iodinated Contrast- Oral and IV Dye Drug allergy (disorder) 5 [facility] (20 sources) Penicillins; Translations: [PENICILLINS] Propensity to adverse reactions to drug (disorder) 5 Rash [facility] Rep[facility] (20 sources) IODINATED CONTRAST MEDIA; Translations: [IODINATED CONTRAST MEDIA] Propensity to adverse reactions to drug (disorder) 3 Anaphylaxis [facility] Rep[facility] (1 source) levoFLOXacin Drug Allergy 3 [facility] (1 source) meloxicam Drug Allergy 3 [facility] (4 sources) NSAIDS (Non-Steroidal Anti-Inflamma; Translations: [NSAIDS (Non-Steroidal Anti-Inflamma] Propensity to adverse reactions 4 Stomach Ulcer [facility] (1 source) Morphine Drug Allergy 4 [facility] Repository (15 sources) Morphine Drug Allergy 3 [facility] (8 sources) Non-steroidal anti-inflammator y agent Propensity to adverse reactions 4 Rash [facility] (2 sources) Contrast media; Translations: [DYE] Propensity to adverse reactions to drug (disorder) 7 [facility] Repository (2 sources) MORPHOLINE ANALOGUES; Translations: [MORPHOLINE ANALOGUES] Propensity to adverse reactions to drug (disorder) 7 [facility] Repository Medications Current Medications Medication Drug Class(es) Dates Sig (Normalized) Sig (Original) acetaminophen 500 mg oral tablet (15 sources) take 1 tablet by mouth every six hours as needed acetaminophen (Tylenol) 500 MG tablet Take 500 mg by mouth every 6 (six) hours if needed Active aspirin 81 mg delayed release oral tablet (17 sources) Platelet Aggregation Inhibitor, Nonsteroidal Anti-inflammatory Drug Start: 02-19-2024 take 81 mg by mouth once daily Aspirin Active 81 MG PO Daily February 19, 2024 12:00am atorvastatin 20 mg oral tablet (18 sources) HMG-CoA Reductase Inhibitor Start: 01-28-2024 take 20 mg by mouth once daily at bedtime Atorvastatin Active 20 MG PO Daily at bedtime January 28, 2024 12:00am take 1 tablet by mouth in the mo rning atorvastatin (Lipitor) 40 MG tablet Take 40 mg by mouth in the morning. Active clopidogrel 75 mg oral tablet (18 sources) P2Y12 Platelet Inhibitor Start: 01-28-2024 take 75 mg by mouth once daily in the morning Clopidogrel Active 75 MG PO Every morning January 28, 2024 12:00am gabapentin 100 mg oral capsule (2 sources) Anti-epileptic Agent Start: 08-11-2024 End: 11-09-2024 take 1 capsule by mouth in the morning gabapentin (Neurontin) 100 MG capsule Indications: Left hand pain Take 1 capsule (100 mg) by mouth in the morning and 1 capsule (100 mg) before bedtime. 60 capsule 2 08/11/2024 11/09/2024 Active lactulose 667 mg/ml oral solution (7 sources) [...] 9:15am metoprolol tartrate 25 mg oral tablet (15 sources) beta-Adrenergic Facundo Start: 03-27-2024 metoprolol tartrate (Lopressor) 25 MG tablet 03/27/2024 Active pantoprazole 40 mg delayed release oral tablet (20 sources) Proton Pump Inhibitor Start: 01-28-2024 End: 02-19-2024 Pantoprazole Active 40 MG PO Daily 30 February 19, 2024 9:26am Take 1 tablet orally 30 minutes before morning meal. salmon calcitonin 200 unt/actuat nasal spray (13 sources) Calcitonin Start: 06-17-2024 End: 08-14-2024 calcitonin, salmon, (Miacalcin) 200 UNIT/ACT nasal spray Indications: Closed fracture of multiple pubic rami, right, initial encounter (CMS/[facility]) Administer 1 spray into one nostril Daily [...] before colonoscopy. sucralfate 1000 mg oral tablet (20 sources) Aluminum Complex Start: 03-18-2024 take 1 [...] Onset: 09-25-2022 Chronic Congestive heart failure; nonhypertensive (20 sources) Unspecified diastolic (congestive) heart failure; Translations: [Acute combined systolic (congestive) and diastolic (congestive) heart failure] Onset: 02-11-2010 Chronic Coronary atherosclerosis and other heart disease (15 sources) Coronary atherosclerosis; Translations: [Atherosclerotic heart disease of [place] coronary artery without angina pectoris] Onset: 02-11-2010 05-24-2023 Chronic Deficiency and other anemia (1 source) Anemia, unspecified; Translations: [ANEMIA UNSPECIFIED] Onset: 01-17-2023 Episodic Deficiency and other anemia (1 source) Iron deficiency anemia, unspecified; Translations: [IRON DEFICIENCY ANEMIA UNSPECIFIED] Onset: 10-25-2022 Episodic Diabetes mellitus without complication (16 sources) Type 2 diabetes mellitus without complications; Translations: [Diabetes mellitus without complication] Onset: 02-11-2010 05-24-2023 Chronic Diabetes mellitus without complication (2 sources) Prediabetes; Translations: [Other abnormal glucose] Onset: 11-14-2022 Episodic Disorders of lipid metabolism (17 sources) Pure hypercholesterolemia , unspecified; Translations: [Hyperlipidemia, unspecified] Onset: 03-18-2010 01-09-2024 Chronic Diverticulosis and diverticulitis (19 sources) Diverticulum of duodenum; Translations: [Diverticulosis of small intestine without perforation or abscess without bleeding] Onset: 09-12-2018 02-19-2024 Chronic Esophageal disorders (17 sources) Gastro-esophageal reflux disease without esophagitis; Translations: [...] 12-15-2022 Chronic Joint disorders and dislocations; trauma-related (15 sources) Derangement of right knee; Translations: [Unspecified [...] bilateral carotid arteries] Onset: 05-30-2022 Chronic Osteoarthritis (18 sources) Unspecified osteoarthritis, unspecified site; Translations: [Osteoarthritis of left knee joint] Onset: 01-17-2023 01-09-2024 Chronic Osteoporosis (16 sources) Age-related osteoporosis without current pathological fracture; Translations: [Osteoporosis] Onset: 07-29-2013 01-09-2024 Chronic Other aftercare (2 sources) long-term (current) use of aspirin; Translations: [[employer] MAIL MARKETER (CURRENT) USE OF ASPIRIN] Onset: 11-19-2018 Episodic Other aftercare (1 source) Other long-term (current) drug therapy; Translations: [OTH DIRECT MAIL MARKETER CURRENT DRUG THERAPY] Onset: 01-17-2023 Episodic Other [...] Fibromyalgia; Translations: [FIBROMYALGIA] Onset: 01-17-2023 Episodic Other connective tissue disease (2 sources) Pain of left hand; Translations: [Pain in left hand] 08-11-2024 Episodic Other fractures (4 sources) Fracture of [...] Onset: 11-25-2022 Chronic Other nervous system disorders (15 sources) Disorder of autonomic nervous system; Translations: [...] Onset: 01-17-2023 Episodic Other non-traumatic joint disorders (7 sources) Hip pain; Translations: [Pain in right [...] Onset: 10-19-2022 Episodic Pancreatic disorders (not diabetes) (16 sources) Other chronic pancreatitis; Translations: [Chronic pancreatitis] [...] Spondylosis; intervertebral disc disorders; other back problems (15 sources) Degeneration of lumbar intervertebral disc; Translations: [...] Episodic/Chronic Other bone disease and musculoskeletal deformities (15 sources) Costal chondritis; Translations: [Chondrocostal junction syndrome [Tietze]] Onset: 05-24-2023 05-24-2023 Episodic Other gastrointestinal disorders (4 sources) Constipation, unspecified; Translations: [CONSTIPATION UNSPECIFIED] Onset: 02-14-2022 Episodic Other nervous system disorders (4 sources) Dysarthria and anarthria; Translations: [DYSARTHRIA AND ANARTHRIA] Onset: 05-26-2022 Episodic Residual codes; unclassified (1 source) Pain, unspecified; Translations: [Pain, unspecified] Onset: 01-07-2024 Episodic Results Test Name Value Interpretation Reference Range Facility Surgical Pathologyon 024 Surgical Pathology Normal [facility] Comment on above: Result Comment: [facility] [address] [place] [address] Surgical Pathology Consultation Patient Name:SHEILA MAC ADOB:1950 (Age: 74)Gender:FTaken:07/28/2024eported:07/31/2024hysician(s):Onur Latham MD ([phone])Copy To: Rec. #:[id number]: #[id number] Final Pathologic Diagnosis 1. Duodenum biopsy first portion: Duodenal mucosa with no significant histopathologic changes. No active inflammation, celiac disease, parasites, granuloma or atypia. 2. Antrum biopsy: Gastric antral mucosa with no significant histopathologic changes. No intestinal metaplasia or dysplasia. No Helicobacter pylori organisms are seen on routine sections. Report Electronically Signed Out [facility]/07/31/2024Rodriguez Vargas MD Interpretation performed at [facility], [address] [place] [address], License number: [id number]. Clinical History Vomiting, gastroesophageal reflux, dysphagia Gross Description 1. Received in formalin labeled ASLINGER, #1: Duodenum is a single hathaway bit of soft tissue, 0.2 cm in greatest dimension. Filtered and submitted in a single cassette. (1, ns, [id number], m7) MG 2. Received in formalin labeled ASLINGER, #2: Antrum is a single hathaway bit of soft tissue, 0.3 cm in greatest dimension. Filtered and submitted in a single cassette. (1, ns, [id number], m7) MG mjg/07/28/2024GR Specimen(s) Received 1: Duodenum biopsy first portion 2: Antrum biopsy Fee Codes(s): 1; 60653 2; 83246 EMG 1 Extremeityon 4 C8 radiculopathy on the left, moderate [facility] NVC 5-6 Nerveson 07-17-2024 C8 radiculopathy on the left, moderate [facility] XR HIP LT 2-3 VIEWS W OR [...] Muller MD on 06/13/2024 10:24 PM Normal [facility] XR SPINE LUMBAR 2 OR 3 [...] Gonzales MD on 06/13/2024 10:20 PM Normal [facility] MR HIP RIGHT WO IV CONTRASTo [...] Comment: MRI R T hip w/o. [facility]OM[facility] XR Hip - right 3 [facility] Result: June 05, 2024 x-rays AP pelvis and lateral of the right hip demonstrate an intact hip joint space. There are no fractures detected. The bone has an osteopenic appearance. The joint spaces are symmetric. There is no obvious effusion or soft tissue swelling. Impression: No acute findings on x-rays of the right hip Hemal Sheth D.O. [facility] Radiology Study observation (narrative) [facility] US AYESHA DOP LEG LTon 01-16-20 US [...] DANIEL MARIE Date: 2023-01-15 08:25 Normal [facility] XR ANKLE LT MIN 3 Von [...] GONZALEZ PATEL Date: 2023-01-15 07:28 Normal [facility] VITAMIN B1 (THIAMINE)on Vit. B1, Whole Blood 118.1 nmol/L Normal 66.5-200.0 [facility] Comment on above: Performed By: #### C BC #### [facility] [address] [place] [address] Dr. Ekta Funk BNPon 01-10-2023 Natriuretic peptide B (Bld) [Mass/Vol] 980.0 pg/mL Critically high <=900.0 [facility] Comment on above: Performed By: #### C VDTBH #### [facility] [address] [place] [address] Dr. Ekta Funk CBC AUTO DIFFon 01-10-2023 BASO # 0.1 103/ul Normal 0.0-0.1 [facility] Comment on above: Performed By: #### C MP #### [facility] [address] [place] [address] Dr. Ekta Funk Basophils/100 WBC (Bld) 1.0 % Normal 0.2-2.0 [facility] Comment on above: Performed By: #### C MP #### [facility] [address] [place] [address] Dr. Ekta Funk EO # 0.4 103/ul Normal 0.0-0.7 [facility] Comment on above: Performed By: #### C MP #### [facility] [address] [place] [address] Dr. Ekta Funk Eosinophils/100 WBC (Bld) 3.7 % Normal 0.9-7.0 [facility] Comment on above: Performed By: #### C MP #### [facility] [address] [place] [address] Dr. Ekta Funk Erythrocyte distribution width (RBC) [Ratio] 13.2 % Normal 11.0-15.0 [facility] Comment on above: Performed By: #### C MP #### [facility] [address] [place] [address] Dr. Ekta Funk Hematocrit (Bld) [Volume fraction] 35.1 % Critically low 36.0-48.0 [facility] Comment on above: Performed By: #### C MP #### [facility] [address] [place] [address] Dr. Ekta Funk Hemoglobin (Bld) [Mass/Vol] 11.3 g/dL Critically low 12.0-16.0 [facility] Comment on above: Performed By: #### C MP #### [facility] [address] [place] [address] Dr. Ekta Funk IG # 0.04 10e3/ul Critically high 0.00-0.03 [facility] Comment on above: Performed By: #### C MP #### [facility] [address] [place] [address] Dr. Ekta Funk IG % 0.4 % Normal 0.0-0.5 [facility] Comment on above: Performed By: #### C MP #### [facility] [address] [place] [address] Dr. Ekta Funk LYMPH # 2.0 103/ul Normal 1.2-3.8 [facility] Comment on above: Performed By: #### C MP #### [facility] [address] [place] [address] Dr. Ekta Funk Lymphocytes/100 WBC (Bld) 20.8 % Normal 20.5-60.0 [facility] Comment on above: Performed By: #### C MP #### [facility] [address] [place] [address] Dr. Ekta Funk MANUAL DIFF REQ NO Normal [facility] Comment on above: Performed By: #### C MP #### [facility] [address] [place] [address] Dr. Ekta Funk MCH (RBC) [Entitic mass] 32.3 pg Normal 26.7-34.0 [facility] Comment on above: Performed By: #### C MP #### [facility] [address] [place] [address] Dr. Ekta Fukn MCHC (RBC) [Mass/Vol] 32.2 g/dL Normal 29.9-35.2 [facility] Comment on above: Performed By: #### C MP #### [facility] [address] [place] [address] Dr. Ekta Funk MCV (RBC) [Entitic vol] 100.3 fL Critically high 81.0-99.0 [facility] Comment on above: Performed By: #### C MP #### [facility] [address] [place] [address] Dr. Ekta Funk MONO # 0.8 103/ul Normal 0.3-0.8 [facility] Comment on above: Performed By: #### C MP #### [facility] [address] [place] [address] Dr. Ekta Funk Monocytes/100 WBC (Bld) 7.9 % Normal 1.7-12.0 [facility] Comment on above: Performed By: #### C MP #### [facility] [address] [place] [address] Dr. Ekta Funk NEUT # 6.4 103/ul Normal 1.4-6.5 [facility] Comment on above: Performed By: #### C MP #### [facility] [address] [place] [address] Dr. Ekta Fnuk Neutrophils/100 WBC (Bld) 66.2 % Normal 43.0-75.0 [facility] Comment on above: Performed By: #### C MP #### [facility] [address] [address] [address] Ekta Funk Platelet mean volume (Bld) [Entitic vol] 9.6 fL Normal 9.5-13.5 [facility] Comment on above: Performed By: #### C MP #### [facility] [address] [address] [address] Ekta Funk PLT 255 103/ul Normal 150-450 [facility] Comment on above: Performed By: #### C MP #### [facility] [address] [address] [address] Ekta Funk RBC 3.50 106/ul Critically low 4.20-5.40 [facility] Comment on above: Performed By: #### C MP #### [facility] [address] [address] [address] Ekta Funk WBC 9.7 103/ul Normal 4.0-11.0 [facility] Comment on above: Performed By: #### C MP #### [facility] [address] [address] [address] Ekta Funk CRPon 01-10-2023 CRP [Mass/Vol] mg/L Normal <=1.0 [facility] Comment on above: Performed By: #### C BC #### [facility] [address] [address] [address] Ekta Funk FREE THYROXINE INDEX T7on FTI 2.62 Normal 1.30-4.50 [facility] Comment on above: Performed By: #### C BC #### [facility] [address] [address] [address] Ekta Funk T3U 32.0 % Normal 30.0-39.0 [facility] Comment on above: Performed By: #### C BC #### [facility] [address] [address] [address] Ekta Funk T4 [Mass/Vol] 8.20 ug/dL Normal 4.80-13.90 [facility] Comment on above: Performed By: #### C BC #### [facility] [address] [place] [address] Dr. Ekta MOSESon 01-10-2023 Iron [Mass/Vol] 61.0 ug/dL Normal 50.0-170.0 [facility] Comment on above: Performed By: #### B 12FOL, VITAD, IRON #### [facility] [address] [place] [address] Dr. Ekta Funk PROF 14(COMP METB)on 023 Albumin [Mass/Vol] 2.9 g/dL Critically low 3.4-5.0 [facility] Comment on above: Performed By: #### C VDTBH #### [facility] [address] [place] [address] Dr. Ekta Funk Albumin/Globulin [Mass ratio] 0.6 {ratio} Normal [facility] Comment on above: Performed By: #### C VDTBH #### [facility] [address] [place] [address] Dr. Ekta Funk ALP [Catalytic activity/Vol] 101 U/L Normal 46-116 [facility] Comment on above: Performed By: #### C VDTBH #### [facility] [address] [place] [address] Dr. Ekta Funk ALT [Catalytic activity/Vol] 16 U/L Normal 14-59 [facility] Comment on above: Performed By: #### C VDTBH #### [facility] [address] [place] [address] Dr. Ekta Funk Anion gap [Moles/Vol] 14.6 mmol/L Normal [facility] Comment on above: Performed By: #### C VDTBH #### [facility] [address] [place] [address] Dr. Ekta Funk AST [Catalytic activity/Vol] 15 U/L Normal 15-37 [facility] Comment on above: Performed By: #### C VDTBH #### [facility] [address] [place] [address] Dr. Ekta Funk Bilirubin [Mass/Vol] 0.4 mg/dL Normal 0.2-1.0 [facility] Comment on above: Performed By: #### C VDTBH #### [facility] [address] [place] [address] Dr. Ekta Funk Calcium [Mass/Vol] 9.2 mg/dL Normal 8.5-10.1 [facility] Comment on above: Performed By: #### C VDTBH #### [facility] [address] [place] [address] Dr. Ekta Funk Chloride [Moles/Vol] 107 mmol/L Normal 98-107 [facility] Comment on above: Performed By: #### C VDTBH #### [facility] [address] [place] [address] Dr. Ekta Funk CO2 [Moles/Vol] 24.4 mmol/L Normal 21.0-32.0 [facility] Comment on above: Performed By: #### C VDTBH #### [facility] [address] [place] [address] Dr. Ekta Funk Creatinine [Mass/Vol] 2.02 mg/dL Critically high 0.55-1.02 [facility] Comment on above: Performed By: #### C VDTBH #### [facility] [address] [place] [address] Dr. Ekta Funk EGFR-AF KUWAITI 29 mL/min/1.73m2 Critically low >=60 [facility] Comment on above: Performed By: #### C VDTBH #### [facility] [address] [place] [address] Dr. Ekta Funk EGFR-NON AF KUWAITI 24 mL/min/1.73m2 Critically low >=60 [facility] Comment on above: Performed By: #### C VDTBH #### [facility] [address] [place] [address] Dr. Ekta Funk Globulin (S) [Mass/Vol] 4.5 g/dL Normal [facility] Comment on above: Performed By: #### C VDTBH #### [facility] [address] [place] [address] Dr. Ekta Funk Glucose [Mass/Vol] 103 mg/dL Normal 74-106 [facility] Comment on above: Performed By: #### C VDTBH #### [facility] [address] [address] [address] Ekta Funk Potassium [Moles/Vol] 5.0 mmol/L Normal 3.5-5.1 [facility] Comment on above: Performed By: #### C VDTBH #### [facility] [address] [address] [address] Ekta Funk Protein [Mass/Vol] 7.4 g/dL Normal 6.4-8.2 [facility] Comment on above: Performed By: #### C VDTBH #### [facility] [address] [address] [address] Ekta Funk Sodium [Moles/Vol] 141 mmol/L Normal 136-145 [facility] Comment on above: Performed By: #### C VDTBH #### [facility] [address] [address] [address] Ekta Funk Urea nitrogen [Mass/Vol] 23.0 mg/dL Critically high 7.0-18.0 [facility] Comment on above: Performed By: #### C VDTBH #### [facility] [address] [address] [address] Ekta Funk Urea nitrogen/Creatinine [Mass ratio] 11.4 mg/mg Normal [facility] [facility] Comment on above: Performed By: #### C VDTBH #### [facility] [address] [address] [address] Ekta Funk TSHon 01-10-2023 TSH 1.793 uIU/mL Normal 0.358-3.740 [facility] Comment on above: Performed By: #### C VDTBH #### [facility] [address] [place] [address] Dr. Ekta Funk VIT B12 AND FOLATEon 023 Cobalamin (Vitamin B12) [Mass/Vol] 175.0 pg/mL Critically low 193.0-986.0 [facility] Comment on above: Performed By: #### B 12FOL, VITAD, IRON #### [facility] [address] [address] [address] Ekta Funk FOLATE 10.30 ng/mL Normal 8.60-58.90 [facility] Comment on above: Performed By: #### B 12FOL, VITAD, IRON #### [facility] [address] [place] [address] Dr. Ekta Funk VITAMIN D 25 OHon 01-10-2023 VIT D 25-OH 24.0 ng/mL Normal [facility] Comment on above: Performed By: #### B 12FOL, VITAD, IRON #### [facility] [address] [place] [address] Dr. Ekta Funk VIT D RANGES SEE BELOW Normal [facility] Comment on above: Result Comment: <20 ng/mL Vit D deficient 20 - <30 ng/mL Vit D insufficient 30 - 100 ng/mL Vit D sufficient >100 ng/mL Potential Toxicity Performed By: #### B 12FOL, VITAD, IRON #### [facility] [address] [place] [address] Dr. Ekta Funk Office Visiton 12-15-2022 Follow-up visit [id number] Sheila Mac 1950 F Date Provider Department Center 12/15/2022 3848-L[facility]LL ZACKBecky [facility] No family history on file Level of Service:26586 [place] OFFICE/OUTPATIENT ESTABLISHED MOD MDM 30-39 MIN Reason for Visit and Comments: Follow-up [341853] - Is here f/u stress test pt states she had Bruises all over both legs symptoms stated a week ago also stated legs are swollen and burning Normal [facility] NM STRESS/REST MULTIon 12-05 NM STRESS/REST MULTI Patient: SHEILA MAC Exam Date: 12/05/2022 : 1950 Gender:F Ordering : DR KRZYSZTOF HARP . Admission #: [id number] Family : Order #: [id number] CLICK HERE TO VIEW EXAM RADIOLOGY REPORT [...] Marie M.D. on 12/06/2022 at 07:26 Normal [facility] ECHOCARDIO M/2D COMPLETEon 0 11-27-2022 ECHOCARDIO M/2D COMPLETE Patient: HSEILA MAC Exam Date: 11/27/2022 : 1950 Gender:F Ordering : DR KRZYSZTOF HARP . Admission #: [id number] Family : Order #: [id number] CLICK HERE TO VIEW EXAM ECHOCARDIOGRAM REPORT [...] Gaspar M.D. on 11/27/2022 at 14:39 Normal [facility] CBC AUTO DIFFon 11-26-2022 BASO # 0.0 103/ul Normal 0.0-0.1 [facility] Comment on above: Performed By: #### I NSULIN #### [facility] [address] [place] [address] Dr. Ekta Funk Basophils/100 WBC (Bld) 0.6 % Normal 0.2-2.0 [facility] Comment on above: Performed By: #### I NSULIN #### [facility] [address] [place] [address] Dr. Ekta Funk EO # 0.3 103/ul Normal 0.0-0.7 [facility] Comment on above: Performed By: #### I NSULIN #### [facility] [address] [place] [address] Dr. Ekta Funk Eosinophils/100 WBC (Bld) 4.8 % Normal 0.9-7.0 [facility] Comment on above: Performed By: #### I NSULIN #### [facility] [address] [place] [address] Dr. Ekta Funk Erythrocyte distribution width (RBC) [Ratio] 13.3 % Normal 11.0-15.0 [facility] Comment on above: Performed By: #### I NSULIN #### [facility] [address] [place] [address] Dr. Ekta Funk Hematocrit (Bld) [Volume fraction] 29.1 % Critically low 36.0-48.0 [facility] Comment on above: Performed By: #### I NSULIN #### [facility] [address] [place] [address] Dr. Ekta Funk Hemoglobin (Bld) [Mass/Vol] 9.5 g/dL Critically low 12.0-16.0 [facility] Comment on above: Performed By: #### I NSULIN #### [facility] [address] [place] [address] Dr. Ekta Funk IG # 0.07 10e3/ul Critically high 0.00-0.03 [facility] Comment on above: Performed By: #### I NSULIN #### [facility] [address] [place] [address] Dr. Ekta Funk IG % 1.0 % Critically high 0.0-0.5 [facility] Comment on above: Performed By: #### I NSULIN #### [facility] [address] [place] [address] Dr. Ekta Funk LYMPH # 1.2 103/ul Normal 1.2-3.8 [facility] Comment on above: Performed By: #### I NSULIN #### [facility] [address] [place] [address] Dr. Ekta Funk Lymphocytes/100 WBC (Bld) 17.2 % Critically low 20.5-60.0 [facility] Comment on above: Performed By: #### I NSULIN #### [facility] [address] [place] [address] Dr. Ekta Funk MANUAL DIFF REQ NO Normal [facility] Comment on above: Performed By: #### I NSULIN #### [facility] [address] [place] [address] Dr. Ekta Funk MCH (RBC) [Entitic mass] 31.7 pg Normal 26.7-34.0 [facility] Comment on above: Performed By: #### I NSULIN #### [facility] [address] [place] [address] Dr. Ekta Funk MCHC (RBC) [Mass/Vol] 32.6 g/dL Normal 29.9-35.2 [facility] Comment on above: Performed By: #### I NSULIN #### [facility] [address] [place] [address] Dr. Ekta Funk MCV (RBC) [Entitic vol] 97.0 fL Normal 81.0-99.0 [facility] Comment on above: Performed By: #### I NSULIN #### [facility] [address] [place] [address] Dr. Ekta Funk MONO # 0.8 103/ul Normal 0.3-0.8 [facility] Comment on above: Performed By: #### I NSULIN #### [facility] [address] [place] [address] Dr. Ekta Funk Monocytes/100 WBC (Bld) 11.1 % Normal 1.7-12.0 [facility] Comment on above: Performed By: #### I NSULIN #### [facility] [address] [place] [address] Dr. Ekta Funk NEUT # 4.5 103/ul Normal 1.4-6.5 [facility] Comment on above: Performed By: #### I NSULIN #### [facility] [address] [place] [address] Dr. Ekta Funk Neutrophils/100 WBC (Bld) 65.3 % Normal 43.0-75.0 [facility] Comment on above: Performed By: #### I NSULIN #### [facility] [address] [place] [address] Dr. Ekta Funk Platelet mean volume (Bld) [Entitic vol] 9.4 fL Critically low 9.5-13.5 [facility] Comment on above: Performed By: #### I NSULIN #### [facility] [address] [place] [address] Dr. Ekta uFnk PLT 263 103/ul Normal 150-450 [facility] Comment on above: Performed By: #### I NSULIN #### [facility] [address] [place] [address] Dr. Ekta Funk RBC 3.00 106/ul Critically low 4.20-5.40 [facility] Comment on above: Performed By: #### I NSULIN #### [facility] [address] [place] [address] Dr. Ekta Funk WBC 6.9 103/ul Normal 4.0-11.0 [facility] Comment on above: Performed By: #### I NSULIN #### [facility] [address] [place] [address] Dr. Ekta Funk PROF 14(COMP METB)on 023 Albumin [Mass/Vol] 2.2 g/dL Critically low 3.4-5.0 [facility] Comment on above: Performed By: #### C MP #### [facility] [address] [place] [address] Dr. Ekta Funk Albumin/Globulin [Mass ratio] 0.6 {ratio} Normal [facility] Comment on above: Performed By: #### C MP #### [facility] [address] [place] [address] Dr. Ekta Funk ALP [Catalytic activity/Vol] 82 U/L Normal 46-116 [facility] Comment on above: Performed By: #### C MP #### [facility] [address] [place] [address] Dr. Ekta Funk ALT [Catalytic activity/Vol] 13 U/L Critically low 14-59 [facility] Comment on above: Performed By: #### C MP #### [facility] [address] [place] [address] Dr. Ekta Funk Anion gap [Moles/Vol] 14.0 mmol/L Normal [facility] Comment on above: Performed By: #### C MP #### [facility] [address] [place] [address] Dr. Ekta Funk AST [Catalytic activity/Vol] 18 U/L Normal 15-37 [facility] Comment on above: Performed By: #### C MP #### [facility] [address] [address] [address] Ekta Funk Bilirubin [Mass/Vol] 0.4 mg/dL Normal 0.2-1.0 [facility] Comment on above: Performed By: #### C MP #### [facility] [address] [address] [address] Ekta Funk Calcium [Mass/Vol] 8.6 mg/dL Normal 8.5-10.1 [facility] Comment on above: Performed By: #### C MP #### [facility] [address] [address] [address] Ekta Funk Chloride [Moles/Vol] 108 mmol/L Critically high 98-107 [facility] Comment on above: Performed By: #### C MP #### [facility] [address] [address] [address] Ekta Funk CO2 [Moles/Vol] 19.6 mmol/L Critically low 21.0-32.0 [facility] Comment on above: Performed By: #### C MP #### [facility] [address] [place] [address] Dr. Ekta Funk Creatinine [Mass/Vol] 1.70 mg/dL Critically high 0.55-1.02 [facility] Comment on above: Performed By: #### C MP #### [facility] [address] [place] [address] Dr. Ekta Funk EGFR-AF KUWAITI 36 mL/min/1.73m2 Critically low >=60 [facility] Comment on above: Performed By: #### C MP #### [facility] [address] [address] [address] Ekta Funk EGFR-NON AF KUWAITI 29 mL/min/1.73m2 Critically low >=60 [facility] Comment on above: Performed By: #### C MP #### [facility] [address] [address] [address] Ekta Funk Globulin (S) [Mass/Vol] 3.6 g/dL Normal [facility] Comment on above: Performed By: #### C MP #### [facility] [address] [address] [address] Ekta Funk Glucose [Mass/Vol] 103 mg/dL Normal 74-106 [facility] Comment on above: Performed By: #### C MP #### [facility] [address] [address] [address] Ekta Funk Potassium [Moles/Vol] 4.6 mmol/L Normal 3.5-5.1 [facility] Comment on above: Performed By: #### C MP #### [facility] [address] [address] [address] Ekta Funk Protein [Mass/Vol] 5.8 g/dL Critically low 6.4-8.2 [facility] Comment on above: Performed By: #### C MP #### [facility] [address] [address] [address] Ekta Funk Sodium [Moles/Vol] 137 mmol/L Normal 136-145 [facility] Comment on above: Performed By: #### C MP #### [facility] [address] [address] [address] Ekta Funk Urea nitrogen [Mass/Vol] 26.0 mg/dL Critically high 7.0-18.0 [facility] Comment on above: Performed By: #### C MP #### [facility] [address] [address] [address] Ekta Funk Urea nitrogen/Creatinine [Mass ratio] 15.3 mg/mg Normal [facility] Comment on above: Performed By: #### C MP #### [facility] [address] [address] [address] Ekta Funk CBC AUTO DIFFon 11-25-2022 BASO # 0.1 103/ul Normal 0.0-0.1 [facility] Comment on above: Performed By: #### C BC #### [facility] [address] [address] [address] Ekta Funk Basophils/100 WBC (Bld) 0.7 % Normal 0.2-2.0 [facility] Comment on above: Performed By: #### C BC #### [facility] [address] [place] [address] Dr. Ekta Funk EO # 0.3 103/ul Normal 0.0-0.7 [facility] Comment on above: Performed By: #### C BC #### [facility] [address] [place] [address] Dr. Ekta Funk Eosinophils/100 WBC (Bld) 3.4 % Normal 0.9-7.0 [facility] Comment on above: Performed By: #### C BC #### [facility] [address] [place] [address] Dr. Ekta Funk Erythrocyte distribution width (RBC) [Ratio] 13.6 % Normal 11.0-15.0 [facility] Comment on above: Performed By: #### C BC #### [facility] [address] [place] [address] Dr. Ekta Funk Hematocrit (Bld) [Volume fraction] 32.1 % Critically low 36.0-48.0 [facility] Comment on above: Performed By: #### C BC #### [facility] [address] [place] [address] Dr. Ekta Funk Hemoglobin (Bld) [Mass/Vol] 10.3 g/dL Critically low 12.0-16.0 [facility] Comment on above: Performed By: #### C BC #### [facility] [address] [place] [address] Dr. Ekta Funk IG # 0.08 10e3/ul Critically high 0.00-0.03 [facility] Comment on above: Performed By: #### C BC #### [facility] [address] [place] [address] Dr. Ekta Funk IG % 0.9 % Critically high 0.0-0.5 [facility] Comment on above: Performed By: #### C BC #### [facility] [address] [place] [address] Dr. Ekta Funk LYMPH # 0.9 103/ul Critically low 1.2-3.8 [facility] Comment on above: Performed By: #### C BC #### [facility] [address] [place] [address] Dr. Ekta Funk Lymphocytes/100 WBC (Bld) 10.7 % Critically low 20.5-60.0 [facility] Comment on above: Performed By: #### C BC #### [facility] [address] [place] [address] Dr. Ekta Funk MANUAL DIFF REQ NO Normal [facility] Comment on above: Performed By: #### C BC #### [facility] [address] [place] [address] Dr. Ekta Funk MCH (RBC) [Entitic mass] 32.2 pg Normal 26.7-34.0 [facility] Comment on above: Performed By: #### C BC #### [facility] [address] [place] [address] Dr. Ekta Funk MCHC (RBC) [Mass/Vol] 32.1 g/dL Normal 29.9-35.2 [facility] Comment on above: Performed By: #### C BC #### [facility] [address] [place] [address] Dr. Ekta Funk MCV (RBC) [Entitic vol] 100.3 fL Critically high 81.0-99.0 [facility] Comment on above: Performed By: #### C BC #### [facility] [address] [place] [address] Dr. Ekta Funk MONO # 0.9 103/ul Critically high 0.3-0.8 [facility] Comment on above: Performed By: #### C BC #### [facility] [address] [place] [address] Dr. Ekta Funk Monocytes/100 WBC (Bld) 9.9 % Normal 1.7-12.0 [facility] Comment on above: Performed By: #### C BC #### [facility] [address] [place] [address] Dr. Ekta Funk NEUT # 6.4 103/ul Normal 1.4-6.5 [facility] Comment on above: Performed By: #### C BC #### [facility] [address] [address] [address] Ekta Funk Neutrophils/100 WBC (Bld) 74.4 % Normal 43.0-75.0 [facility] Comment on above: Performed By: #### C BC #### [facility] [address] [address] [address] Ekta Funk Platelet mean volume (Bld) [Entitic vol] 9.5 fL Normal 9.5-13.5 [facility] Comment on above: Performed By: #### C BC #### [facility] [address] [place] [address] Dr. Ekta Funk PLT 267 103/ul Normal 150-450 [facility] Comment on above: Performed By: #### C BC #### [facility] [address] [place] [address] Dr. Ekta Funk RBC 3.20 106/ul Critically low 4.20-5.40 [facility] Comment on above: Performed By: #### C BC #### [facility] [address] [place] [address] Dr. Ekta Funk WBC 8.6 103/ul Normal 4.0-11.0 [facility] Comment on above: Performed By: #### C BC #### [facility] [address] [place] [address] Dr. Ekta Funk BASO # 0.1 103/ul Normal 0.0-0.1 [facility] Comment on above: Performed By: #### C MP #### [facility] [address] [place] [address] Dr. Ekta Funk Basophils/100 WBC (Bld) 0.7 % Normal 0.2-2.0 [facility] Comment on above: Performed By: #### C MP #### [facility] [address] [place] [address] Dr. Ekta Funk EO # 0.3 103/ul Normal 0.0-0.7 [facility] Comment on above: Performed By: #### C MP #### [facility] [address] [address] [address] Ekta Funk Eosinophils/100 WBC (Bld) 3.9 % Normal 0.9-7.0 [facility] Comment on above: Performed By: #### C MP #### [facility] [address] [address] [address] Ekta Funk Erythrocyte distribution width (RBC) [Ratio] 13.2 % Normal 11.0-15.0 [facility] Comment on above: Performed By: #### C MP #### [facility] [address] [place] [address] Dr. Ekta Funk Hematocrit (Bld) [Volume fraction] 28.0 % Critically low 36.0-48.0 [facility] Comment on above: Performed By: #### C MP #### [facility] [address] [place] [address] Dr. Ekta Funk Hemoglobin (Bld) [Mass/Vol] 9.3 g/dL Critically low 12.0-16.0 [facility] Comment on above: Performed By: #### C MP #### [facility] [address] [address] [address] Ekta Funk IG # 0.08 10e3/ul Critically high 0.00-0.03 [facility] Comment on above: Performed By: #### C MP #### [facility] [address] [place] [address] Dr. Ekta Funk IG % 1.1 % Critically high 0.0-0.5 [facility] Comment on above: Performed By: #### C MP #### [facility] [address] [address] [address] Ekta Funk LYMPH # 0.9 103/ul Critically low 1.2-3.[address] [facility] Comment on above: Performed By: #### C MP #### [facility] [address] [address] [address] Ekta Funk Lymphocytes/100 WBC (Bld) 12.1 % Critically low 20.5-60.0 [facility] Comment on above: Performed By: #### C MP #### [facility] [address] [place] [address] Dr. Ekta Funk MANUAL DIFF REQ NO Normal [facility] Comment on above: Performed By: #### C MP #### [facility] [address] [place] [address] Dr. Ekta Funk MCH (RBC) [Entitic mass] 32.0 pg Normal 26.7-34.0 [facility] Comment on above: Performed By: #### C MP #### [facility] [address] [place] [address] Dr. Ekta Funk MCHC (RBC) [Mass/Vol] 33.2 g/dL Normal 29.9-35.2 [facility] Comment on above: Performed By: #### C MP #### [facility] [address] [place] [address] Dr. Ekta Funk MCV (RBC) [Entitic vol] 96.2 fL Normal 81.0-99.0 [facility] Comment on above: Performed By: #### C MP #### [facility] [address] [place] [address] Dr. Ekta Funk MONO # 0.7 103/ul Normal 0.3-0.8 [facility] Comment on above: Performed By: #### C MP #### [facility] [address] [place] [address] Dr. Ekta Funk Monocytes/100 WBC (Bld) 9.8 % Normal 1.7-12.0 [facility] Comment on above: Performed By: #### C MP #### [facility] [address] [place] [address] Dr. Ekta Funk NEUT # 5.2 103/ul Normal 1.4-6.5 [facility] Comment on above: Performed By: #### C MP #### [facility] [address] [place] [address] Dr. Ekta Funk Neutrophils/100 WBC (Bld) 72.4 % Normal 43.0-75.0 [facility] Comment on above: Performed By: #### C MP #### [facility] [address] [place] [address] Dr. Ekta Funk Platelet mean volume (Bld) [Entitic vol] 9.4 fL Critically low 9.5-13.5 [facility] Comment on above: Performed By: #### C MP #### [facility] [address] [address] [address] Ekta Funk PLT 250 103/ul Normal 150-450 [facility] Comment on above: Performed By: #### C MP #### [facility] [address] [place] [address] Dr. Ekta Funk RBC 2.91 106/ul Critically low 4.20-5.40 [facility] Comment on above: Performed By: #### C MP #### [facility] [address] [place] [address] Dr. Ekta Funk WBC 7.2 103/ul Normal 4.0-11.0 [facility] Comment on above: Performed By: #### C MP #### [facility] [address] [place] [address] Dr. Ekta Funk PROF 14(COMP METB)on 023 Albumin [Mass/Vol] 2.1 g/dL Critically low 3.4-5.0 [facility] Comment on above: Performed By: #### C MP #### [facility] [address] [place] [address] Dr. Ekta Funk Albumin/Globulin [Mass ratio] 0.6 {ratio} Normal [facility] Comment on above: Performed By: #### C MP #### [facility] [address] [place] [address] Dr. Ekta Funk ALP [Catalytic activity/Vol] 68 U/L Normal 46-116 [facility] Comment on above: Performed By: #### C MP #### [facility] [address] [place] [address] Dr. Ekta Funk ALT [Catalytic activity/Vol] 14 U/L Normal 14-59 [facility] Comment on above: Performed By: #### C MP #### [facility] [address] [place] [address] Dr. Ekta Funk Anion gap [Moles/Vol] 12.9 mmol/L Normal [facility] Comment on above: Performed By: #### C MP #### [facility] [address] [address] [address] Ekta Funk AST [Catalytic activity/Vol] 14 U/L Critically low 15-37 [facility] Comment on above: Performed By: #### C MP #### [facility] [address] [address] [address] Ekta Funk Bilirubin [Mass/Vol] 0.3 mg/dL Normal 0.2-1.0 [facility] Comment on above: Performed By: #### C MP #### [facility] [address] [address] [address] Ekta Funk Calcium [Mass/Vol] 8.3 mg/dL Critically low 8.5-10.1 [facility] Comment on above: Performed By: #### C MP #### [facility] [address] [address] [address] Ekta Funk Chloride [Moles/Vol] 109 mmol/L Critically high 98-107 [facility] Comment on above: Performed By: #### C MP #### [facility] [address] [address] [address] Ekta Funk CO2 [Moles/Vol] 19.3 mmol/L Critically low 21.0-32.0 [facility] Comment on above: Performed By: #### C MP #### [facility] [address] [address] [address] Ekta Funk Creatinine [Mass/Vol] 1.54 mg/dL Critically high 0.55-1.02 [facility] Comment on above: Performed By: #### C MP #### [facility] [address] [address] [address] Ekta Funk EGFR-AF KUWAITI 40 mL/min/1.73m2 Critically low >=60 [facility] Comment on above: Performed By: #### C MP #### [facility] [address] [address] [address] Ekta Funk EGFR-NON AF KUWAITI 33 mL/min/1.73m2 Critically low >=60 [facility] Comment on above: Performed By: #### C MP #### [facility] [address] [address] [address] Ekta Funk Globulin (S) [Mass/Vol] 3.7 g/dL Normal [facility] Comment on above: Performed By: #### C MP #### [facility] [address] [address] [address] Ekta Funk Glucose [Mass/Vol] 117 mg/dL Critically high 74-106 [facility] Comment on above: Performed By: #### C MP #### [facility] [address] [address] [address] Ekta Funk Potassium [Moles/Vol] 4.2 mmol/L Normal 3.5-5.1 [facility] Comment on above: Performed By: #### C MP #### [facility] [address] [address] [address] Ekta Funk Protein [Mass/Vol] 5.8 g/dL Critically low 6.4-8.2 [facility] Comment on above: Performed By: #### C MP #### [facility] [address] [address] [address] Ekta Funk Sodium [Moles/Vol] 137 mmol/L Normal 136-145 [facility] Comment on above: Performed By: #### C MP #### [facility] [address] [address] [address] Ekta Funk Urea nitrogen [Mass/Vol] 27.0 mg/dL Critically high 7.0-18.0 [facility] Comment on above: Performed By: #### C MP #### [facility] [address] [address] [address] Ekta Funk Urea nitrogen/Creatinine [Mass ratio] 17.5 mg/mg Normal [facility] Comment on above: Performed By: #### C MP #### [facility] [address] [address] [address] Ekta Funk AMMONIAon 11-24-2022 Ammonia (P) [Moles/Vol] 13 umol/L Normal 11-32 [facility] Comment on above: Performed By: #### C VDTB #### [facility] [address] [place] [address] Dr. Ekta Funk CBC AUTO DIFFon 11-24-2022 BASO # 0.0 103/ul Normal 0.0-0.1 [facility] Comment on above: Performed By: #### C MP #### [facility] [address] [place] [address] Dr. Ekta Funk Basophils/100 WBC (Bld) 0.4 % Normal 0.2-2.0 [facility] Comment on above: Performed By: #### C MP #### [facility] [address] [place] [address] Dr. Ekta Funk EO # 0.4 103/ul Normal 0.0-0.7 [facility] Comment on above: Performed By: #### C MP #### [facility] [address] [place] [address] Dr. Ekta Funk Eosinophils/100 WBC (Bld) 3.8 % Normal 0.9-7.0 [facility] Comment on above: Performed By: #### C MP #### [facility] [address] [place] [address] Dr. Ekta Funk Erythrocyte distribution width (RBC) [Ratio] 13.2 % Normal 11.0-15.0 [facility] Comment on above: Performed By: #### C MP #### [facility] [address] [place] [address] Dr. Ekta Funk Hematocrit (Bld) [Volume fraction] 34.0 % Critically low 36.0-48.0 [facility] Comment on above: Performed By: #### C MP #### [facility] [address] [place] [address] Dr. Ekta Funk Hemoglobin (Bld) [Mass/Vol] 11.5 g/dL Critically low 12.0-16.0 [facility] Comment on above: Performed By: #### C MP #### [facility] [address] [address] [address] Ekta Funk IG # 0.11 10e3/ul Critically high 0.00-0.03 [facility] Comment on above: Performed By: #### C MP #### [facility] [address] [place] [address] Dr. Ekta Funk IG % 1.2 % Critically high 0.0-0.5 [facility] Comment on above: Performed By: #### C MP #### [facility] [address] [place] [address] Dr. Ekta Funk LYMPH # 1.4 103/ul Normal 1.2-3.8 [facility] Comment on above: Performed By: #### C MP #### [facility] [address] [place] [address] Dr. Ekta Funk Lymphocytes/100 WBC (Bld) 14.9 % Critically low 20.5-60.0 [facility] Comment on above: Performed By: #### C MP #### [facility] [address] [place] [address] Dr. Ekta Funk MANUAL DIFF REQ NO Normal [facility] Comment on above: Performed By: #### C MP #### [facility] [address] [place] [address] Dr. Ekta Funk MCH (RBC) [Entitic mass] 32.5 pg Normal 26.7-34.0 [facility] Comment on above: Performed By: #### C MP #### [facility] [address] [place] [address] Dr. Ekta Funk MCHC (RBC) [Mass/Vol] 33.8 g/dL Normal 29.9-35.2 [facility] Comment on above: Performed By: #### C MP #### [facility] [address] [place] [address] Dr. Ekta Funk MCV (RBC) [Entitic vol] 96.0 fL Normal 81.0-99.0 [facility] Comment on above: Performed By: #### C MP #### [facility] [address] [place] [address] Dr. Ekta Funk MONO # 0.9 103/ul Critically high 0.3-0.8 [facility] Comment on above: Performed By: #### C MP #### [facility] [address] [address] [address] Ekta Funk Monocytes/100 WBC (Bld) 9.7 % Normal 1.7-12.0 [facility] Comment on above: Performed By: #### C MP #### [facility] [address] [place] [address] Dr. Ekta Funk NEUT # 6.4 103/ul Normal 1.4-6.5 [facility] Comment on above: Performed By: #### C MP #### [facility] [address] [place] [address] Dr. Ekta Funk Neutrophils/100 WBC (Bld) 70.0 % Normal 43.0-75.0 [facility] Comment on above: Performed By: #### C MP #### [facility] [address] [place] [address] Dr. Ekta Funk Platelet mean volume (Bld) [Entitic vol] 9.3 fL Critically low 9.5-13.5 [facility] Comment on above: Performed By: #### C MP #### [facility] [address] [place] [address] Dr. Ekta Funk PLT 308 103/ul Normal 150-450 [facility] Comment on above: Performed By: #### C MP #### [facility] [address] [place] [address] Dr. Ekta Funk RBC 3.54 106/ul Critically low 4.20-5.40 [facility] Comment on above: Performed By: #### C MP #### [facility] [address] [place] [address] Dr. Ekta Funk WBC 9.1 103/ul Normal 4.0-11.0 [facility] Comment on above: Performed By: #### C MP #### [facility] [address] [place] [address] Dr. Ekta Funk CPKon 11-24-2022 CK [Catalytic activity/Vol] 21 U/L Critically low 26-192 [facility] Comment on above: Performed By: #### B 12FOL, CAROLYN, AURELIA #### [facility] [address] [address] [address] STROKE HEAD WOon [...] by: VANESSA PARADA Date: 2022-11-24 11:09 Normal [facility] CTA HEAD WO W CONon 11-25-19 [...] DANIEL MARIE Date: 2022-11-24 12:41 Normal [facility] CULTURE URINEon 11-24-2022 CULTURE URINE Culture Observations : NO GROWTH. Normal [facility] Comment on above: Performed By: #### I NSULIN #### [facility] [address] [place] [address] Dr. Ekta Fnuk Covid-19 PCR ([facility])on 11-08 SARS-CoV-2 (COVID-19) RNA GANESH+probe Ql (Unsp spec) Not detected Normal NOT DETECTED [facility] Comment on above: Result Comment: When [...] for this test is supported by the House Nurse of Health and Human Service's declaration that [...] used). Performed By: #### C VDTB #### [facility] [address] [place] [address] Dr. Ekta Funk ER URINE PROFILEon 3 Bilirubin Ql (U) Negative Normal NEGATIVE [facility] Comment on above: Performed By: #### C BC #### [facility] [address] [place] [address] Dr. Ekta Funk Clarity (U) CLEAR Normal CLEAR [facility] Comment on above: Performed By: #### C BC #### [facility] [address] [place] [address] Dr. Ekta Funk Color (U) LT. YELLOW Normal YELLOW [facility] Comment on above: Performed By: #### C BC #### [facility] [address] [place] [address] Dr. Ekta Funk ERUD A micrscopic examination will be performed if indicated. Normal [facility] Comment on above: Performed By: #### C BC #### [facility] [address] [place] [address] Dr. Ekta Funk Glucose Ql (U) Negative Normal NEGATIVE [facility] Comment on above: Performed By: #### C BC #### [facility] [address] [place] [address] Dr. Ekta Funk Hemoglobin Ql (U) Negative Normal NEGATIVE [facility] Comment on above: Performed By: #### C BC #### [facility] [address] [address] [address] Ekta Funk Ketones Ql (U) Negative Normal NEGATIVE [facility] Comment on above: Performed By: #### C BC #### [facility] [address] [address] [address] Ekta Funk LEUKOCYTES Negative Normal NEGATIVE [facility] Comment on above: Performed By: #### C BC #### [facility] [address] [place] [address] Dr. Ekta Funk Nitrite Ql (U) Negative Normal NEGATIVE [facility] Comment on above: Performed By: #### C BC #### [facility] [address] [place] [address] Dr. Ekta Funk pH (U) 5.5 [pH] Normal 5-9 [facility] Comment on above: Performed By: #### C BC #### [facility] [address] [place] [address] Dr. Ekta Funk SPEC GRAVITY 1.020 Normal 1.005-<=1.025 [facility] Comment on above: Performed By: #### C BC #### [facility] [address] [place] [address] Dr. Ekta Funk UA PROTEIN Negative Normal NEGATIVE/ TRACE [facility] Comment on above: Performed By: #### C BC #### [facility] [address] [place] [address] Dr. Ekta Funk UR MICRO IND NOT INDICATED Normal [facility] Comment on above: Performed By: #### C BC #### [facility] [address] [place] [address] Dr. Ekta Funk Urobilinogen Qn (U) 0.2 {Ivan'U}/dL Normal 0.2 - 1. 0 [facility] Comment on above: Performed By: #### C BC #### [facility] [address] [place] [address] Dr. Ekta Funk GLYCOHEMOGLOBIN A1Con 2022 ADA RECOMMENDATION SEE BELOW Normal [facility] Comment on above: Result Comment: ADA RECOMMENDED LIMIT 4.0 - 6.0 ADA THERAPEUTIC TARGET < 7.0 ACTION SUGGESTED > 7.0 Performed By: #### B 12FOL, VITAD, IRON #### [facility] [address] [place] [address] Dr. Ekta Funk Glucose [Mass/Vol] 143 mg/dL Normal [facility] Comment on above: Performed By: #### B 12FOL, VITAD, IRON #### [facility] [address] [address] [address] Ekta Funk HbA1c (Bld) [Mass fraction] 6.6 % Critically high 4.5-6.2 [facility] Comment on above: Performed By: #### B 12FOL, VITAD, IRON #### [facility] [address] [place] [address] Dr. Ekta Funk LACTATE/LACTIC ACIDon 2022 Lactate [Moles/Vol] 1.6 mmol/L Normal 0.4-2.0 [facility] Comment on above: Performed By: #### C MP #### [facility] [address] [place] [address] Dr. Ekta Funk Lactate [Moles/Vol] 2.1 mmol/L Critically high 0.4-2.0 [facility] Comment on above: Performed By: #### B 12FOL, VITAD, IRON #### [facility] [address] [place] [address] Dr. Ekta Funk LIPASEon 11-24-2022 Lipase [Catalytic activity/Vol] 165.0 U/L Normal 73.0-393.0 [facility] Comment on above: Performed By: #### B 12FOL, VITAD, IRON #### [facility] [address] [place] [address] Dr. Ekta Funk LIPID PROFILEon 11-24-2022 CHOL-HDL RATIO NORM SEE BELOW Normal [facility] Comment on above: Result Comment: 3.3 - 4.4 LOW RISK 4.4 - 7.1 AVERAGE RISK 7.1 - 11.0 MODERATE RISK >11.0 HIGH RISK Performed By: #### B 12FOL, VITAD, IRON #### [facility] [address] [address] [address] Ekta Funk Cholesterol [Mass/Vol] 248 mg/dL Critically high <=200 [facility] Comment on above: Performed By: #### B 12FOL, VITAD, IRON #### [facility] [address] [address] [address] Ekta Funk Cholesterol in HDL [Mass/Vol] 58 mg/dL Normal 40-60 [facility] Comment on above: Performed By: #### B 12FOL, VITAD, IRON #### [facility] [address] [address] [address] Ekta Funk Cholesterol in LDL [Mass/Vol] 165.6 mg/dL Normal [facility] Comment on above: Performed By: #### B 12FOL, VITAD, IRON #### [facility] [address] [address] [address] Ekta Funk Cholesterol.total/Ch olesterol in HDL [Mass ratio] 4.3 {ratio} Normal [facility] Comment on above: Performed By: #### B 12FOL, VITAD, IRON #### [facility] [address] [address] [address] Ekta Funk HDL NORMAL > or = 60 mg/dl - LO W CARDIOVASCULAR RISK <40 mg/dl - HIGH CARDIOVASCULAR RISK Normal [facility] Comment on above: Performed By: #### B 12FOL, VITAD, IRON #### [facility] [address] [address] [address] Ekta Funk LDL CALC NORMAL SEE BELOW Normal [facility] Comment on above: Result Comment: <100 mg/dl OPTIMAL 100 - 129 mg/dl NEAR OR ABOVE OPTIMAL 130 - 159 mg/dl BORDERLINE HIGH 160 - 189 mg/dl HIGH >190 mg/dl VERY HIGH Performed By: #### B 12FOL, VITAD, IRON #### [facility] [address] [address] [address] Ekta Funk Triglyceride [Mass/Vol] 122 mg/dL Normal <=150 [facility] Comment on above: Performed By: #### B 12FOL, VITAD, IRON #### [facility] [address] [place], [place] [address] Dr. Ekta Funk VLDL CALC 24.4 mg/dL Normal [facility] Comment on above: Performed By: #### B 12FOL, VITAD, IRON #### [facility] [address] [place], [place] [address] Dr. Ekta Funk MRI BRAIN WO CONon [...] RAVEN ELAINE Date: 2022-11-24 19:35 Normal [facility] PROF 14(COMP METB)on 023 Albumin [Mass/Vol] 2.7 g/dL Critically low 3.4-5.0 [facility] Comment on above: Performed By: #### B 12FOL, VITAD, IRON #### [facility] [address] [place], [place] [address] Dr. Ekta Funk Albumin/Globulin [Mass ratio] 0.6 {ratio} Normal [facility] Comment on above: Performed By: #### B 12FOL, VITAD, IRON #### [facility] [address] [address] [address] Ekta Funk ALP [Catalytic activity/Vol] 85 U/L Normal 46-116 [facility] Comment on above: Performed By: #### B 12FOL, VITAD, IRON #### [facility] [address] [place] [address] Dr. Ekta Funk ALT [Catalytic activity/Vol] 18 U/L Normal 14-59 [facility] Comment on above: Performed By: #### B 12FOL, VITAD, IRON #### [facility] [address] [place] [address] Dr. Ekta Funk Anion gap [Moles/Vol] 18.9 mmol/L Normal [facility] Comment on above: Performed By: #### B 12FOL, VITAD, IRON #### [facility] [address] [place] [address] Dr. Ekta Funk AST [Catalytic activity/Vol] 16 U/L Normal 15-37 [facility] Comment on above: Performed By: #### B 12FOL, VITAD, IRON #### [facility] [address] [place] [address] Dr. Etka Funk Bilirubin [Mass/Vol] 0.4 mg/dL Normal 0.2-1.0 [facility] Comment on above: Performed By: #### B 12FOL, VITAD, IRON #### [facility] [address] [place] [address] Dr. Ekta Funk Calcium [Mass/Vol] 9.5 mg/dL Normal 8.5-10.1 [facility] Comment on above: Performed By: #### B 12FOL, VITAD, IRON #### [facility] [address] [place] [address] Dr. Ekta Funk Chloride [Moles/Vol] 108 mmol/L Critically high 98-107 [facility] Comment on above: Performed By: #### B 12FOL, VITAD, IRON #### [facility] [address] [address] [address] Ekta Funk CO2 [Moles/Vol] 21.1 mmol/L Normal 21.0-32.0 [facility] Comment on above: Performed By: #### B 12FOL, VITAD, IRON #### [facility] [address] [place] [address] Dr. Ekta Funk Creatinine [Mass/Vol] 2.08 mg/dL Critically high 0.55-1.02 [facility] Comment on above: Performed By: #### B 12FOL, VITAD, IRON #### [facility] [address] [place] [address] Dr. Ekta Funk EGFR-AF KU[place]I 28 mL/min/1.73m2 Critically low >=60 [facility] Comment on above: Performed By: #### B 12FOL, VITAD, IRON #### [facility] [address] [place] [address] Dr. Ekta Funk EGFR-NON AF [place] 23 mL/min/1.73m2 Critically low >=60 [facility] Comment on above: Performed By: #### B 12FOL, VITAD, IRON #### [facility] [address] [place] [address] Dr. Ekta Funk Globulin (S) [Mass/Vol] 4.6 g/dL Normal [facility] Comment on above: Performed By: #### B 12FOL, VITAD, IRON #### [facility] [address] [place] [address] Dr. Ekta Funk Glucose [Mass/Vol] 119 mg/dL Critically high 74-106 [facility] Comment on above: Performed By: #### B 12FOL, VITAD, IRON #### [facility] [address] [place] [address] Dr. Ekta Funk Potassium [Moles/Vol] 5.0 mmol/L Normal 3.5-5.1 [facility] Comment on above: Performed By: #### B 12FOL, VITAD, IRON #### [facility] [address] [place] [address] Dr. Ekta Funk Protein [Mass/Vol] 7.3 g/dL Normal 6.4-8.2 [facility] Comment on above: Performed By: #### B 12FOL, VITAD, IRON #### [facility] [address] [address] [address] Ekta Funk Sodium [Moles/Vol] 143 mmol/L Normal 136-145 [facility] Comment on above: Performed By: #### B 12FOL, VITAD, IRON #### [facility] [address] [address] [address] Ekta Funk Urea nitrogen [Mass/Vol] 37.0 mg/dL Critically high 7.0-18.0 [facility] Comment on above: Performed By: #### B 12FOL, VITAD, IRON #### [facility] [address] [place] [address] Dr. Ekta Funk Urea nitrogen/Creatinine [Mass ratio] 17.8 mg/mg Normal [facility] Comment on above: Performed By: #### B 12FOL, VITAD, IRON #### [facility] [address] [place] [address] Dr. Ekta Funk TROPONIN, HIGH SENSITIVITYon 11-24-2022 HSTROP 14.1 pg/mL Normal 4.0-51.3 [facility] Comment on above: Result Comment: CUT- OFF POINTS HAVE BEEN ESTABLISHED BASED ON THE FOURTH UNIVERSAL DEFINITIONS OF MYOCARDIAL INFARCTION. THE UPPER REFERENCE LIMIT (URL) OF TROPONIN, DEFINED THE 99TH PERCENTILE OF cTnI DISTRIBUTION IN A REFERENCE POPULATION, HAS BEEN CONFIRMED THE DECISION THRESHOLD FOR DC DIAGNOSIS. Performed By: #### B 12FOL, VITAD, IRON #### [facility] [address] [place] [address] Dr. Ekta Funk TSHon 11-24-2022 TSH 1.184 uIU/mL Normal 0.358-3.740 [facility] Comment on above: Performed By: #### B 12FOL, VITAD, IRON #### [facility] [address] [place] [address] Dr. Ekta Funk XR CHEST 1 Von [...] NATALIIA TATE Date: 2022-11-24 11:00 Normal [facility] BNPon 11-13-2022 Natriuretic peptide B (Bld) [Mass/Vol] 565.0 pg/mL Normal <=900.0 [facility] Comment on above: Performed By: #### I NSULIN #### [facility] [address] [place] [address] Dr. Ekta Funk CBC AUTO DIFFon 11-13-2022 BASO # 0.1 103/ul Normal 0.0-0.1 [facility] Comment on above: Performed By: #### C BC #### [facility] [address] [place] [address] Dr. Ekta Funk Basophils/100 WBC (Bld) 0.6 % Normal 0.2-2.0 [facility] Comment on above: Performed By: #### C BC #### [facility] [address] [place] [address] Dr. Ekta Funk EO # 0.4 103/ul Normal 0.0-0.7 [facility] Comment on above: Performed By: #### C BC #### [facility] [address] [place] [address] Dr. Ekta Funk Eosinophils/100 WBC (Bld) 3.7 % Normal 0.9-7.0 [facility] Comment on above: Performed By: #### C BC #### [facility] [address] [place] [address] Dr. Ekta Funk Erythrocyte distribution width (RBC) [Ratio] 13.2 % Normal 11.0-15.0 [facility] Comment on above: Performed By: #### C BC #### [facility] [address] [address] [address] Ekta Funk Hematocrit (Bld) [Volume fraction] 36.7 % Normal 36.0-48.0 [facility] Comment on above: Performed By: #### C BC #### [facility] [address] [address] [address] Ekta Funk Hemoglobin (Bld) [Mass/Vol] 12.4 g/dL Normal 12.0-16.0 [facility] Comment on above: Performed By: #### C BC #### [facility] [address] [place] [address] Dr. Ekta Funk IG # 0.10 10e3/ul Critically high 0.00-0.03 [facility] Comment on above: Performed By: #### C BC #### [facility] [address] [place] [address] Dr. Ekta Funk IG % 1.0 % Critically high 0.0-0.5 [facility] Comment on above: Performed By: #### C BC #### [facility] [address] [address] [address] Ekta Funk LYMPH # 1.5 103/ul Normal 1.2-3.8 [facility] Comment on above: Performed By: #### C BC #### [facility] [address] [place] [address] Dr. Ekta Funk Lymphocytes/100 WBC (Bld) 14.9 % Critically low 20.5-60.0 [facility] Comment on above: Performed By: #### C BC #### [facility] [address] [place] [address] Dr. Ekta Funk MANUAL DIFF REQ NO Normal [facility] Comment on above: Performed By: #### C BC #### [facility] [address] [place] [address] Dr. Ekta Funk MCH (RBC) [Entitic mass] 32.8 pg Normal 26.7-34.0 [facility] Comment on above: Performed By: #### C BC #### [facility] [address] [address] [address] Ekta Funk MCHC (RBC) [Mass/Vol] 33.8 g/dL Normal 29.9-35.2 [facility] Comment on above: Performed By: #### C BC #### [facility] [address] [address] [address] Ekta Funk MCV (RBC) [Entitic vol] 97.1 fL Normal 81.0-99.0 [facility] Comment on above: Performed By: #### C BC #### [facility] [address] [address] [address] Ekta Funk MONO # 0.8 103/ul Normal 0.3-0.8 [facility] Comment on above: Performed By: #### C BC #### [facility] [address] [place] [address] Dr. Ekta Funk Monocytes/100 WBC (Bld) 7.7 % Normal 1.7-12.0 [facility] Comment on above: Performed By: #### C BC #### [facility] [address] [address] [address] Ekta Funk NEUT # 7.3 103/ul Critically high 1.4-6.5 [facility] Comment on above: Performed By: #### C BC #### [facility] [address] [place] [address] Dr. Ekta Funk Neutrophils/100 WBC (Bld) 72.1 % Normal 43.0-75.0 [facility] Comment on above: Performed By: #### C BC #### [facility] [address] [address] [address] Ekta Funk Platelet mean volume (Bld) [Entitic vol] 9.4 fL Critically low 9.5-13.5 [facility] Comment on above: Performed By: #### C BC #### [facility] [address] [address] [address] Ekta Funk PLT 251 103/ul Normal 150-450 [facility] Comment on above: Performed By: #### C BC #### [facility] [address] [address] [address] Ekta Funk RBC 3.78 106/ul Critically low 4.20-5.40 [facility] Comment on above: Performed By: #### C BC #### [facility] [address] [address] [address] Ekta Funk WBC 10.1 103/ul Normal 4.0-11.0 [facility] Comment on above: Performed By: #### C BC #### [facility] [address] [address] [address] Ekta Funk FREE THYROXINE INDEX T7on FTI 2.73 Normal 1.30-4.50 [facility] Comment on above: Performed By: #### I NSULIN #### [facility] [address] [place] [address] Dr. Ekta Funk T3U 35.0 % Normal 30.0-39.0 [facility] Comment on above: Performed By: #### I NSULIN #### [facility] [address] [address] [address] Ekta Funk T4 [Mass/Vol] 7.80 ug/dL Normal 4.80-13.90 [facility] Comment on above: Performed By: #### I NSULIN #### [facility] [address] [address] [address] Ekta Funk GLYCOHEMOGLOBIN A1Con 2022 ADA RECOMMENDATION SEE BELOW Normal [facility] Comment on above: Result Comment: ADA RECOMMENDED LIMIT 4.0 - 6.0 ADA THERAPEUTIC TARGET < 7.0 ACTION SUGGESTED > 7.0 Performed By: #### B 12FOL, VITAD, IRON #### [facility] [address] [address] [address] Ekta Funk Glucose [Mass/Vol] 134 mg/dL Normal [facility] Comment on above: Performed By: #### B 12FOL, VITAD, IRON #### [facility] [address] [address] [address] Ekta Funk HbA1c (Bld) [Mass fraction] 6.3 % Critically high 4.5-6.2 [facility] Comment on above: Performed By: #### B 12FOL VITAD, IRON #### [facility] [address] [address] [address] Ekta Funk IRONon 11-13-2022 Iron [Mass/Vol] 55.0 ug/dL Normal 50.0-170.0 [facility] Comment on above: Performed By: #### B 12FOL VITAD, IRON #### [facility] [address] [address] [address] Ekta Funk LIPID PROFILEon 11-13-2022 CHOL-HDL RATIO NORM SEE BELOW Normal [facility] Comment on above: Result Comment: 3.3 - 4.4 LOW RISK 4.4 - 7.1 AVERAGE RISK 7.1 - 11.0 MODERATE RISK >11.0 HIGH RISK Performed By: #### I NSULIN #### [facility] [address] [address] [address] Ekta Funk Cholesterol [Mass/Vol] 294 mg/dL Critically high <=200 [facility] Comment on above: Performed By: #### I NSULIN #### [facility] [address] [address] [address] Ekta Funk Cholesterol in HDL [Mass/Vol] 64 mg/dL Critically high 40-60 [facility] Comment on above: Performed By: #### I NSULIN #### [facility] [address] [address] [address] Ekta Funk Cholesterol in LDL [Mass/Vol] 197.2 mg/dL Normal [facility] Comment on above: Performed By: #### I NSULIN #### [facility] [address] [address] [address] Ekta Funk Cholesterol.total/Ch olesterol in HDL [Mass ratio] 4.6 {ratio} Normal [facility] Comment on above: Performed By: #### I NSULIN #### [facility] [address] [address] [address] Ekta Funk HDL NORMAL > or = 60 mg/dl - LO W CARDIOVASCULAR RISK <40 mg/dl - HIGH CARDIOVASCULAR RISK Normal [facility] Comment on above: Performed By: #### I NSULIN #### [facility] [address] [address] [address] Ekta Funk LDL CALC NORMAL SEE BELOW Normal [facility] Comment on above: Result Comment: <100 mg/dl OPTIMAL 100 - 129 mg/dl NEAR OR ABOVE OPTIMAL 130 - 159 mg/dl BORDERLINE HIGH 160 - 189 mg/dl HIGH >190 mg/dl VERY HIGH Performed By: #### I NSULIN #### [facility] [address] [address] [address] Ekta Funk Triglyceride [Mass/Vol] 164 mg/dL Critically high <=150 [facility] Comment on above: Performed By: #### I NSULIN #### [facility] [address] [place] [address] Dr. Ekta Funk VLDL CALC 32.8 mg/dL Normal [facility] Comment on above: Performed By: #### I NSULIN #### [facility] [address] [address] [address] Ekta Funk PROF 14(COMP METB)on 023 Albumin [Mass/Vol] 3.0 g/dL Critically low 3.4-5.0 Th [facility] Comment on above: Performed By: #### I NSULIN #### [facility] [address] [place] [address] Dr. Ekta Funk Albumin/Globulin [Mass ratio] 0.6 {ratio} Normal [facility] Comment on above: Performed By: #### I NSULIN #### [facility] [address] [place] [address] Dr. Ekta Funk ALP [Catalytic activity/Vol] 92 U/L Normal 46-116 [facility] Comment on above: Performed By: #### I NSULIN #### [facility] [address] [place] [address] Dr. Ekta Funk ALT [Catalytic activity/Vol] 26 U/L Normal 14-59 [facility] Comment on above: Performed By: #### I NSULIN #### [facility] [address] [address] [address] Ekta Funk Anion gap [Moles/Vol] 16.2 mmol/L Normal [facility] Comment on above: Performed By: #### I NSULIN #### [facility] [address] [address] [address] Ekta Funk AST [Catalytic activity/Vol] 16 U/L Normal 15-37 [facility] Comment on above: Performed By: #### I NSULIN #### [facility] [address] [address] [address] Ekta Funk Bilirubin [Mass/Vol] 0.5 mg/dL Normal 0.2-1.0 [facility] Comment on above: Performed By: #### I NSULIN #### [facility] [address] [place] [address] Dr. Ekta Funk Calcium [Mass/Vol] 9.7 mg/dL Normal 8.5-10.1 [facility] Comment on above: Performed By: #### I NSULIN #### [facility] [address] [place] [address] Dr. Ekta Funk Chloride [Moles/Vol] 105 mmol/L Normal 98-107 [facility] Comment on above: Performed By: #### I NSULIN #### [facility] [address] [place] [address] Dr. Ekta Funk CO2 [Moles/Vol] 24.9 mmol/L Normal 21.0-32.0 [facility] Comment on above: Performed By: #### I NSULIN #### [facility] [address] [place] [address] Dr. Ekta Funk Creatinine [Mass/Vol] 2.18 mg/dL Critically high 0.55-1.02 [facility] Comment on above: Performed By: #### I NSULIN #### [facility] [address] [place] [address] Dr. Ekta Funk EGFR-AF KUWAITI 27 mL/min/1.73m2 Critically low >=60 [facility] Comment on above: Performed By: #### I NSULIN #### [facility] [address] [place] [address] Dr. Ekta Funk EGFR-NON AF KU[place]I 22 mL/min/1.73m2 Critically low >=60 [facility] Comment on above: Performed By: #### I NSULIN #### [facility] [address] [place] [address] Dr. Ekta Funk Globulin (S) [Mass/Vol] 4.7 g/dL Normal [facility] Comment on above: Performed By: #### I NSULIN #### [facility] [address] [address] [address] Ekta Funk Glucose [Mass/Vol] 114 mg/dL Critically high 74-106 [facility] Comment on above: Performed By: #### I NSULIN #### [facility] [address] [place] [address] Dr. Ekta Funk Potassium [Moles/Vol] 5.1 mmol/L Normal 3.5-5.1 [facility] Comment on above: Performed By: #### I NSULIN #### [facility] [address] [place] [address] Dr. Ekta Funk Protein [Mass/Vol] 7.7 g/dL Normal 6.4-8.2 [facility] Comment on above: Performed By: #### I NSULIN #### [facility] [address] [place] [address] Dr. Ekta Funk Sodium [Moles/Vol] 141 mmol/L Normal 136-145 [facility] Comment on above: Performed By: #### I NSULIN #### [facility] [address] [place] [address] Dr. Ekta Funk Urea nitrogen [Mass/Vol] 51.0 mg/dL Critically high 7.0-18.0 [facility] Comment on above: Performed By: #### I NSULIN #### [facility] [address] [place] [address] Dr. Ekta Funk Urea nitrogen/Creatinine [Mass ratio] 23.4 mg/mg Normal [facility] Comment on above: Performed By: #### I NSULIN #### [facility] [address] [place] [address] Dr. Ekta Funk TSHon 11-13-2022 TSH 0.935 uIU/mL Normal 0.358-3.740 [facility] Comment on above: Performed By: #### I NSULIN #### [facility] [address] [place] [address] Dr. Ekta Funk XR CHEST 2 Von [...] GODWIN BECK Date: 2022-11-13 15:40 Normal [facility] PROF 14(COMP METB)on 023 Albumin [Mass/Vol] 3.0 g/dL Critically low 3.4-5.0 Th [facility] Comment on above: Performed By: #### Bob 12FOL, VITAD, IRON #### [facility] [address] [place] [address] Dr. Ekta Funk Albumin/Globulin [Mass ratio] 0.7 {ratio} Normal [facility] Comment on above: Performed By: #### Bob 12FOL, VITAD, IRON #### [facility] [address] [address] [address] Ekta Funk ALP [Catalytic activity/Vol] 89 U/L Normal 46-116 [facility] Comment on above: Performed By: #### Bob 12FOL, VITAD, IRON #### [facility] [address] [place] [address] Dr. Ekta Funk ALT [Catalytic activity/Vol] 29 U/L Normal 14-59 [facility] Comment on above: Performed By: #### Bob 12FOL, VITAD, IRON #### [facility] [address] [place] [address] Dr. Ekta Funk Anion gap [Moles/Vol] 15.2 mmol/L Normal [facility] Comment on above: Performed By: #### B 12FOL, VITAD, IRON #### [facility] [address] [address] [address] Ekta Funk AST [Catalytic activity/Vol] 14 U/L Critically low 15-37 [facility] Comment on above: Performed By: #### B 12FOL, VITAD, IRON #### [facility] [address] [address] [address] Ekta Funk Bilirubin [Mass/Vol] 0.4 mg/dL Normal 0.2-1.0 [facility] Comment on above: Performed By: #### B 12FOL, VITAD, IRON #### [facility] [address] [place] [address] Dr. Ekta Funk Calcium [Mass/Vol] 9.1 mg/dL Normal 8.5-10.1 [facility] Comment on above: Performed By: #### B 12FOL, VITAD, IRON #### [facility] [address] [address] [address] Ekta Funk Chloride [Moles/Vol] 106 mmol/L Normal 98-107 [facility] Comment on above: Performed By: #### B 12FOL, VITAD, IRON #### [facility] [address] [address] [address] Ekta Funk CO2 [Moles/Vol] 24.2 mmol/L Normal 21.0-32.0 [facility] Comment on above: Performed By: #### B 12FOL, VITAD, IRON #### [facility] [address] [address] [address] Ekta Funk Creatinine [Mass/Vol] 1.89 mg/dL Critically high 0.55-1.02 [facility] Comment on above: Performed By: #### B 12FOL, VITAD, IRON #### [facility] [address] [address] [address] Ekta Funk EGFR-AF KU[place]I 32 mL/min/1.73m2 Critically low >=60 [facility] Comment on above: Performed By: #### B 12FOL, VITAD, IRON #### [facility] [address] [place] [address] Dr. Ekta Funk EGFR-NON AF [place]I 26 mL/min/1.73m2 Critically low >=60 [facility] Comment on above: Performed By: #### B 12FOL, VITAD, IRON #### [facility] [address] [place] [address] Dr. Ekta Funk Globulin (S) [Mass/Vol] 4.1 g/dL Normal [facility] Comment on above: Performed By: #### B 12FOL, VITAD, IRON #### [facility] [address] [place] [address] Dr. Ekta Funk Glucose [Mass/Vol] 108 mg/dL Critically high 74-106 [facility] Comment on above: Performed By: #### B 12FOL, VITAD, IRON #### [facility] [address] [place] [address] Dr. Ekta Funk Potassium [Moles/Vol] 4.4 mmol/L Normal 3.5-5.1 [facility] Comment on above: Performed By: #### B 12FOL, VITAD, IRON #### [facility] [address] [place] [address] Dr. Ekta Funk Protein [Mass/Vol] 7.1 g/dL Normal 6.4-8.2 [facility] Comment on above: Performed By: #### B 12FOL, VITAD, IRON #### [facility] [address] [place] [address] Dr. Ekta Funk Sodium [Moles/Vol] 141 mmol/L Normal 136-145 [facility] Comment on above: Performed By: #### B 12FOL, VITAD, IRON #### [facility] [address] [place] [address] Dr. Ekta Funk Urea nitrogen [Mass/Vol] 40.0 mg/dL Critically high 7.0-18.0 [facility] Comment on above: Performed By: #### B 12FOL, VITAD, IRON #### [facility] [address] [place] [address] Dr. Ekta Funk Urea nitrogen/Creatinine [Mass ratio] 21.2 mg/mg Normal [facility] Comment on above: Performed By: #### B 12FOL, VITAD, IRON #### [facility] [address] [place] [address] Dr. Ekta Funk BNPon 10-23-2022 Natriuretic peptide B (Bld) [Mass/Vol] 507.0 pg/mL Normal <=900.0 [facility] Comment on above: Performed By: #### B 12FOL, VITAD, IRON #### [facility] [address] [place] [address] Dr. Ekta Funk CBC AUTO DIFFon 10-23-2022 BASO # 0.0 103/ul Normal 0.0-0.1 [facility] Comment on above: Performed By: #### C BC #### [facility] [address] [place] [address] Dr. Ekta Funk Basophils/100 WBC (Bld) 0.2 % Normal 0.2-2.0 [facility] Comment on above: Performed By: #### C BC #### [facility] [address] [place] [address] Dr. Ekta Funk EO # 0.1 103/ul Normal 0.0-0.7 [facility] Comment on above: Performed By: #### C BC #### [facility] [address] [place] [address] Dr. Ekta Funk Eosinophils/100 WBC (Bld) 1.1 % Normal 0.9-7.0 [facility] Comment on above: Performed By: #### C BC #### [facility] [address] [place] [address] Dr. Ekta Funk Erythrocyte distribution width (RBC) [Ratio] 12.8 % Normal 11.0-15.0 [facility] Comment on above: Performed By: #### C BC #### [facility] [address] [place] [address] Dr. Ekta Funk Hematocrit (Bld) [Volume fraction] 37.1 % Normal 36.0-48.0 [facility] Comment on above: Performed By: #### C BC #### [facility] [address] [place] [address] Dr. Ekta Funk Hemoglobin (Bld) [Mass/Vol] 13.0 g/dL Normal 12.0-16.0 [facility] Comment on above: Performed By: #### C BC #### [facility] [address] [place] [address] Dr. Ekta Funk IG # 0.11 10e3/ul Critically high 0.00-0.03 [facility] Comment on above: Performed By: #### C BC #### [facility] [address] [place] [address] Dr. Ekta Funk IG % 1.1 % Critically high 0.0-0.5 [facility] Comment on above: Performed By: #### C BC #### [facility] [address] [place] [address] Dr. Ekta Funk LYMPH # 1.6 103/ul Normal 1.2-3.8 [facility] Comment on above: Performed By: #### C BC #### [facility] [address] [place] [address] Dr. Ekta Funk Lymphocytes/100 WBC (Bld) 15.6 % Critically low 20.5-60.0 [facility] Comment on above: Performed By: #### C BC #### [facility] [address] [place] [address] Dr. Ekta Funk MANUAL DIFF REQ NO Normal [facility] Comment on above: Performed By: #### C BC #### [facility] [address] [place] [address] Dr. Ekta Funk MCH (RBC) [Entitic mass] 32.8 pg Normal 26.7-34.0 [facility] Comment on above: Performed By: #### C BC #### [facility] [address] [place] [address] Dr. Ekta Funk MCHC (RBC) [Mass/Vol] 35.0 g/dL Normal 29.9-35.2 [facility] Comment on above: Performed By: #### C BC #### [facility] [address] [place] [address] Dr. Ekta Funk MCV (RBC) [Entitic vol] 93.7 fL Normal 81.0-99.0 [facility] Comment on above: Performed By: #### C BC #### [facility] [address] [place] [address] Dr. Ekta Funk MONO # 0.9 103/ul Critically high 0.3-0.8 [facility] Comment on above: Performed By: #### C BC #### [facility] [address] [place] [address] Dr. Ekta Funk Monocytes/100 WBC (Bld) 8.3 % Normal 1.7-12.0 [facility] Comment on above: Performed By: #### C BC #### [facility] [address] [place] [address] Dr. Ekta Funk NEUT # 7.5 103/ul Critically high 1.4-6.5 [facility] Comment on above: Performed By: #### C BC #### [facility] [address] [place] [address] Dr. Ekta Funk Neutrophils/100 WBC (Bld) 73.7 % Normal 43.0-75.0 [facility] Comment on above: Performed By: #### C BC #### [facility] [address] [place] [address] Dr. Ekta Funk Platelet mean volume (Bld) [Entitic vol] 10.3 fL Normal 9.5-13.5 [facility] Comment on above: Performed By: #### C BC #### [facility] [address] [place] [address] Dr. Ekta Funk PLT 135 103/ul Critically low 150-[address] [facility] Comment on above: Performed By: #### C BC #### [facility] [address] [place] [address] Dr. Ekta Funk RBC 3.96 106/ul Critically low 4.20-5.40 [facility] Comment on above: Performed By: #### C BC #### [facility] [address] [place] [address] Dr. Ekta Funk WBC 10.2 103/ul Normal 4.0-11.0 [facility] Comment on above: Performed By: #### C BC #### [facility] [address] [place] [address] Dr. Ekta Funk PROF 14(COMP METB)on 023 Albumin [Mass/Vol] 2.7 g/dL Critically low 3.4-5.0 [facility] Comment on above: Performed By: #### B 12FOL, VITAD, IRON #### [facility] [address] [place] [address] Dr. Ekta Funk Albumin/Globulin [Mass ratio] 0.8 {ratio} Normal [facility] Comment on above: Performed By: #### B 12FOL, VITAD, IRON #### [facility] [address] [place] [address] Dr. Ekta Funk ALP [Catalytic activity/Vol] 74 U/L Normal 46-116 [facility] Comment on above: Performed By: #### B 12FOL, VITAD, IRON #### [facility] [address] [place] [address] Dr. Ekta Funk ALT [Catalytic activity/Vol] 26 U/L Normal 14-59 [facility] Comment on above: Performed By: #### B 12FOL, VITAD, IRON #### [facility] [address] [place] [address] Dr. Ekta Funk Anion gap [Moles/Vol] 16.5 mmol/L Normal [facility] Comment on above: Performed By: #### B 12FOL, VITAD, IRON #### [facility] [address] [place] [address] Dr. Ekta Funk AST [Catalytic activity/Vol] 15 U/L Normal 15-37 [facility] Comment on above: Performed By: #### B 12FOL, VITAD, IRON #### [facility] [address] [place] [address] Dr. Ekta Funk Bilirubin [Mass/Vol] 0.4 mg/dL Normal 0.2-1.0 [facility] Comment on above: Performed By: #### B 12FOL, VITAD, IRON #### [facility] [address] [place] [address] Dr. Ekta Funk Calcium [Mass/Vol] 8.1 mg/dL Critically low 8.5-10.1 Th [facility] Comment on above: Performed By: #### B 12FOL, VITAD, IRON #### [facility] [address] [place] [address] Dr. Ekta Funk Chloride [Moles/Vol] 96 mmol/L Critically low 98-107 [facility] Comment on above: Performed By: #### B 12FOL, VITAD, IRON #### [facility] [address] [place] [address] Dr. Ekta Funk CO2 [Moles/Vol] 26.1 mmol/L Normal 21.0-32.0 [facility] Comment on above: Performed By: #### B 12FOL, VITAD, IRON #### [facility] [address] [place] [address] Dr. Ekta Funk Creatinine [Mass/Vol] 3.28 mg/dL Critically high 0.55-1.02 [facility] Comment on above: Performed By: #### B 12FOL, VITAD, IRON #### [facility] [address] [place] [address] Dr. Ekta Funk EGFR-AF KU[place]I 17 mL/min/1.73m2 Critically low >=60 [facility] Comment on above: Performed By: #### B 12FOL, VITAD, IRON #### [facility] [address] [place] [address] Dr. Ekta Funk EGFR-NON AF [place]I 14 mL/min/1.73m2 Critically low >=60 [facility] Comment on above: Performed By: #### B 12FOL, VITAD, IRON #### [facility] [address] [place] [address] Dr. Ekta Funk Globulin (S) [Mass/Vol] 3.6 g/dL Normal [facility] Comment on above: Performed By: #### B 12FOL, VITAD, IRON #### [facility] [address] [place] [address] Dr. Ekta Funk Glucose [Mass/Vol] 132 mg/dL Critically high 74-106 [facility] Comment on above: Performed By: #### B 12FOL, VITAD, IRON #### [facility] [address] [place] [address] Dr. Ekta Funk Potassium [Moles/Vol] 4.6 mmol/L Normal 3.5-5.1 [facility] Comment on above: Performed By: #### B 12FOL, VITAD, IRON #### [facility] [address] [place] [address] Dr. Ekta Funk Protein [Mass/Vol] 6.3 g/dL Critically low 6.4-8.2 [facility] Comment on above: Performed By: #### B 12FOL, VITAD, IRON #### [facility] [address] [place] [address] Dr. Ekta Funk Sodium [Moles/Vol] 134 mmol/L Critically low 136-145 Th [facility] Comment on above: Performed By: #### B 12FOL, VITAD, IRON #### [facility] [address] [place] [address] Dr. Ekta Funk Urea nitrogen [Mass/Vol] 74.0 mg/dL Critically high 7.0-18.0 [facility] Comment on above: Performed By: #### B 12FOL, VITAD, IRON #### [facility] [address] [place] [address] Dr. Ekta Funk Urea nitrogen/Creatinine [Mass ratio] 22.6 mg/mg Normal [facility] Comment on above: Performed By: #### B 12FOL, VITAD, IRON #### [facility] [address] [place] [address] Dr. Ekta Funk BNPon 10-22-2022 Natriuretic peptide B (Bld) [Mass/Vol] 1411.0 pg/mL Critically high <=900.0 [facility] Comment on above: Performed By: #### B 12FOL, VITAD, IRON #### [facility] [address] [place] [address] Dr. Ekta Funk CBC AUTO DIFFon 10-22-2022 BASO # 0.0 103/ul Normal 0.0-0.1 [facility] Comment on above: Performed By: #### B 12FOL, VITAD, IRON #### [facility] [address] [place] [address] Dr. Ekta Funk Basophils/100 WBC (Bld) 0.3 % Normal 0.2-2.0 [facility] Comment on above: Performed By: #### B 12FOL, VITAD, IRON #### [facility] [address] [place] [address] Dr. Ekta Funk EO # 0.1 103/ul Normal 0.0-0.7 [facility] Comment on above: Performed By: #### B 12FOL, VITAD, IRON #### [facility] [address] [place] [address] Dr. Ekta Funk Eosinophils/100 WBC (Bld) 0.6 % Critically low 0.9-7.0 [facility] Comment on above: Performed By: #### B 12FOL, VITAD, IRON #### [facility] [address] [place] [address] Dr. Ekta Funk Erythrocyte distribution width (RBC) [Ratio] 12.9 % Normal 11.0-15.0 [facility] Comment on above: Performed By: #### B 12FOL, VITAD, IRON #### [facility] [address] [place] [address] Dr. Ekta Funk Hematocrit (Bld) [Volume fraction] 40.8 % Normal 36.0-48.0 [facility] Comment on above: Performed By: #### B 12FOL, VITAD, IRON #### [facility] [address] [place] [address] Dr. Ekta Funk Hemoglobin (Bld) [Mass/Vol] 14.0 g/dL Normal 12.0-16.0 [facility] Comment on above: Performed By: #### B 12FOL, VITAD, IRON #### [facility] [address] [place] [address] Dr. Ekta Funk IG # 0.09 10e3/ul Critically high 0.00-0.03 [facility] Comment on above: Performed By: #### B 12FOL, VITAD, IRON #### [facility] [address] [place] [address] Dr. Ekta Funk IG % 0.8 % Critically high 0.0-0.5 [facility] Comment on above: Performed By: #### B 12FOL, VITAD, IRON #### [facility] [address] [place] [address] Dr. Ekta Funk LYMPH # 1.8 103/ul Normal 1.2-3.8 [facility] Comment on above: Performed By: #### B 12FOL, VITAD, IRON #### [facility] [address] [place] [address] Dr. Ekta Funk Lymphocytes/100 WBC (Bld) 16.2 % Critically low 20.5-60.0 [facility] Comment on above: Performed By: #### B 12FOL, VITAD, IRON #### [facility] [address] [place] [address] Dr. Ekta Funk MANUAL DIFF REQ NO Normal [facility] Comment on above: Performed By: #### B 12FOL, VITAD, IRON #### [facility] [address] [place] [address] Dr. Ekta Funk MCH (RBC) [Entitic mass] 32.3 pg Normal 26.7-34.0 [facility] Comment on above: Performed By: #### B 12FOL, VITAD, IRON #### [facility] [address] [place] [address] Dr. Ekta Funk MCHC (RBC) [Mass/Vol] 34.3 g/dL Normal 29.9-35.2 [facility] Comment on above: Performed By: #### B 12FOL, VITAD, IRON #### [facility] [address] [address] [address] Ekta Funk MCV (RBC) [Entitic vol] 94.2 fL Normal 81.0-99.0 [facility] Comment on above: Performed By: #### B 12FOL, VITAD, IRON #### [facility] [address] [place] [address] Dr. Ekta Funk MONO # 0.8 103/ul Normal 0.3-0.8 [facility] Comment on above: Performed By: #### B 12FOL, VITAD, IRON #### [facility] [address] [place] [address] Dr. Ekta Funk Monocytes/100 WBC (Bld) 7.3 % Normal 1.7-12.0 [facility] Comment on above: Performed By: #### B 12FOL, VITAD, IRON #### [facility] [address] [place] [address] Dr. Ekta Funk NEUT # 8.1 103/ul Critically high 1.4-6.5 [facility] Comment on above: Performed By: #### B 12FOL, VITAD, IRON #### [facility] [address] [place] [address] Dr. Ekta Funk Neutrophils/100 WBC (Bld) 74.8 % Normal 43.0-75.0 [facility] Comment on above: Performed By: #### B 12FOL, VITAD, IRON #### [facility] [address] [place] [address] Dr. Ekta Funk Platelet mean volume (Bld) [Entitic vol] 9.8 fL Normal 9.5-13.5 [facility] Comment on above: Performed By: #### B 12FOL, VITAD, IRON #### [facility] [address] [place] [address] Dr. Ekta Funk PLT 226 103/ul Normal 150-450 [facility] Comment on above: Performed By: #### B 12FOL, VITAD, IRON #### [facility] [address] [place] [address] Dr. Ekta Funk RBC 4.33 106/ul Normal 4.20-5.40 [facility] Comment on above: Performed By: #### B 12FOL, VITAD, IRON #### [facility] [address] [place] [address] Dr. Ekta Funk WBC 10.9 103/ul Normal 4.0-11.0 [facility] Comment on above: Performed By: #### B 12FOL, VITAD, IRON #### [facility] [address] [place] [address] Dr. Ekta Funk PROF 14(COMP METB)on 023 Albumin [Mass/Vol] 3.1 g/dL Critically low 3.4-5.0 [facility] Comment on above: Performed By: #### B 12FOL, VITAD, IRON #### [facility] [address] [place] [address] Dr. Ekta Funk Albumin/Globulin [Mass ratio] 0.7 {ratio} Normal [facility] Comment on above: Performed By: #### B 12FOL, VITAD, IRON #### [facility] [address] [place] [address] Dr. Ekta Funk ALP [Catalytic activity/Vol] 81 U/L Normal 46-116 [facility] Comment on above: Performed By: #### B 12FOL, VITAD, IRON #### [facility] [address] [place] [address] Dr. Ekta Funk ALT [Catalytic activity/Vol] 30 U/L Normal 14-59 [facility] Comment on above: Performed By: #### B 12FOL, VITAD, IRON #### [facility] [address] [place] [address] Dr. Ekta Funk Anion gap [Moles/Vol] 17.3 mmol/L Normal [facility] Comment on above: Performed By: #### B 12FOL, VITAD, IRON #### [facility] [address] [place] [address] Dr. Ekta Funk AST [Catalytic activity/Vol] 11 U/L Critically low 15-37 [facility] Comment on above: Performed By: #### B 12FOL, VITAD, IRON #### [facility] [address] [address] [address] Ekta Funk Bilirubin [Mass/Vol] 0.5 mg/dL Normal 0.2-1.0 [facility] Comment on above: Performed By: #### B 12FOL, VITAD, IRON #### [facility] [address] [address] [address] Ekta Funk Calcium [Mass/Vol] 8.6 mg/dL Normal 8.5-10.1 [facility] Comment on above: Performed By: #### B 12FOL, VITAD, IRON #### [facility] [address] [place] [address] Dr. Ekta Funk Chloride [Moles/Vol] 95 mmol/L Critically low 98-107 [facility] Comment on above: Performed By: #### B 12FOL, VITAD, IRON #### [facility] [address] [place] [address] Dr. Ekta Funk CO2 [Moles/Vol] 27.3 mmol/L Normal 21.0-32.0 [facility] Comment on above: Performed By: #### B 12FOL, VITAD, IRON #### [facility] [address] [place] [address] Dr. Ekta Funk Creatinine [Mass/Vol] 3.17 mg/dL Critically high 0.55-1.02 [facility] Comment on above: Performed By: #### B 12FOL, VITAD, IRON #### [facility] [address] [place] [address] Dr. Ekta Funk EGFR-AF KU[place]I 17 mL/min/1.73m2 Critically low >=60 [facility] Comment on above: Performed By: #### B 12FOL, VITAD, IRON #### [facility] [address] [place] [address] Dr. Ekta Funk EGFR-NON AF [place]I 14 mL/min/1.73m2 Critically low >=60 [facility] Comment on above: Performed By: #### B 12FOL, VITAD, IRON #### [facility] [address] [address] [address] Ekta Funk Globulin (S) [Mass/Vol] 4.6 g/dL Normal [facility] Comment on above: Performed By: #### B 12FOL, VITAD, IRON #### [facility] [address] [place] [address] Dr. Ekta Funk Glucose [Mass/Vol] 139 mg/dL Critically high 74-106 [facility] Comment on above: Performed By: #### B 12FOL, VITAD, IRON #### [facility] [address] [place] [address] Dr. Ekta Funk Potassium [Moles/Vol] 4.6 mmol/L Normal 3.5-5.1 [facility] Comment on above: Performed By: #### B 12FOL, VITAD, IRON #### [facility] [address] [place] [address] Dr. Ekta Funk Protein [Mass/Vol] 7.7 g/dL Normal 6.4-8.2 [facility] Comment on above: Performed By: #### B 12FOL, VITAD, IRON #### [facility] [address] [place] [address] Dr. Ekta Funk Sodium [Moles/Vol] 135 mmol/L Critically low 136-145 [facility] Comment on above: Performed By: #### B 12FOL, VITAD, IRON #### [facility] [address] [place] [address] Dr. Ekta Funk Urea nitrogen [Mass/Vol] 73.0 mg/dL Critically high 7.0-18.0 [facility] Comment on above: Performed By: #### B 12FOL, VITAD, IRON #### [facility] [address] [place] [address] Dr. Ekta Funk Urea nitrogen/Creatinine [Mass ratio] 23.0 mg/mg Normal [facility] Comment on above: Performed By: #### B 12FOL, VITAD, IRON #### [facility] [address] [place] [address] Dr. Ekta Funk BNPon 10-21-2022 Natriuretic peptide B (Bld) [Mass/Vol] 2007.0 pg/mL Critically high <=900.0 [facility] Comment on above: Performed By: #### C MP #### [facility] [address] [place] [address] Dr. Ekta Funk CBC AUTO DIFFon 10-21-2022 BASO # 0.0 103/ul Normal 0.0-0.1 [facility] Comment on above: Performed By: #### C BC #### [facility] [address] [place] [address] Dr. Ekta Funk Basophils/100 WBC (Bld) 0.2 % Normal 0.2-2.0 [facility] Comment on above: Performed By: #### C BC #### [facility] [address] [place] [address] Dr. Ekta Funk EO # 0.1 103/ul Normal 0.0-0.7 [facility] Comment on above: Performed By: #### C BC #### [facility] [address] [place] [address] Dr. Ekta Funk Eosinophils/100 WBC (Bld) 0.9 % Normal 0.9-7.0 [facility] Comment on above: Performed By: #### C BC #### [facility] [address] [place] [address] Dr. Ekta Funk Erythrocyte distribution width (RBC) [Ratio] 12.8 % Normal 11.0-15.0 [facility] Comment on above: Performed By: #### C BC #### [facility] [address] [place] [address] Dr. Ekta Funk Hematocrit (Bld) [Volume fraction] 38.8 % Normal 36.0-48.0 [facility] Comment on above: Performed By: #### C BC #### [facility] [address] [place] [address] Dr. Ekta Funk Hemoglobin (Bld) [Mass/Vol] 13.3 g/dL Normal 12.0-16.0 [facility] Comment on above: Performed By: #### C BC #### [facility] [address] [place] [address] Dr. Ekta Funk IG # 0.08 10e3/ul Critically high 0.00-0.03 [facility] Comment on above: Performed By: #### C BC #### [facility] [address] [place] [address] Dr. Ekta Funk IG % 0.8 % Critically high 0.0-0.5 [facility] Comment on above: Performed By: #### C BC #### [facility] [address] [place] [address] Dr. Ekta Funk LYMPH # 1.7 103/ul Normal 1.2-3.8 [facility] Comment on above: Performed By: #### C BC #### [facility] [address] [place] [address] Dr. Ekta Funk Lymphocytes/100 WBC (Bld) 17.3 % Critically low 20.5-60.0 [facility] Comment on above: Performed By: #### C BC #### [facility] [address] [place] [address] Dr. Ekta Funk MANUAL DIFF REQ NO Normal [facility] Comment on above: Performed By: #### C BC #### [facility] [address] [place] [address] Dr. Ekta Funk MCH (RBC) [Entitic mass] 32.1 pg Normal 26.7-34.0 [facility] Comment on above: Performed By: #### C BC #### [facility] [address] [place] [address] Dr. Ekta Funk MCHC (RBC) [Mass/Vol] 34.3 g/dL Normal 29.9-35.2 [facility] Comment on above: Performed By: #### C BC #### [facility] [address] [place] [address] Dr. Ekta Funk MCV (RBC) [Entitic vol] 93.7 fL Normal 81.0-99.0 [facility] Comment on above: Performed By: #### C BC #### [facility] [address] [address] [address] Ekta Funk MONO # 0.6 103/ul Normal 0.3-0.8 [facility] Comment on above: Performed By: #### C BC #### [facility] [address] [address] [address] Ekta Funk Monocytes/100 WBC (Bld) 6.4 % Normal 1.7-12.0 [facility] Comment on above: Performed By: #### C BC #### [facility] [address] [address] [address] Ekta Funk NEUT # 7.4 103/ul Critically high 1.4-6.5 [facility] Comment on above: Performed By: #### C BC #### [facility] [address] [place] [address] Dr. Ekta Funk Neutrophils/100 WBC (Bld) 74.4 % Normal 43.0-75.0 [facility] Comment on above: Performed By: #### C BC #### [facility] [address] [place] [address] Dr. Ekta Funk Platelet mean volume (Bld) [Entitic vol] 9.8 fL Normal 9.5-13.5 [facility] Comment on above: Performed By: #### C BC #### [facility] [address] [place] [address] Dr. Ekta Funk PLT 193 103/ul Normal 150-450 [facility] Comment on above: Performed By: #### C BC #### [facility] [address] [address] [address] Ekta Funk RBC 4.14 106/ul Critically low 4.20-5.40 [facility] Comment on above: Performed By: #### C BC #### [facility] [address] [address] [address] Ekta Funk WBC 9.9 103/ul Normal 4.0-11.0 [facility] Comment on above: Performed By: #### C BC #### [facility] [address] [place] [address] Dr. Ekta Funk PROF 14(COMP METB)on 023 Albumin [Mass/Vol] 3.2 g/dL Critically low 3.4-5.0 [facility] Comment on above: Performed By: #### I NSULIN #### [facility] [address] [place] [address] Dr. Ekta Funk Albumin/Globulin [Mass ratio] 0.8 {ratio} Normal [facility] Comment on above: Performed By: #### I NSULIN #### [facility] [address] [place] [address] Dr. Ekta Funk ALP [Catalytic activity/Vol] 82 U/L Normal 46-116 [facility] Comment on above: Performed By: #### I NSULIN #### [facility] [address] [place] [address] Dr. Ekta Funk ALT [Catalytic activity/Vol] 38 U/L Normal 14-59 [facility] Comment on above: Performed By: #### I NSULIN #### [facility] [address] [place] [address] Dr. Ekta Fukn Anion gap [Moles/Vol] 19.1 mmol/L Normal [facility] Comment on above: Performed By: #### I NSULIN #### [facility] [address] [place] [address] Dr. Ekta Funk AST [Catalytic activity/Vol] 19 U/L Normal 15-37 [facility] Comment on above: Performed By: #### I NSULIN #### [facility] [address] [place] [address] Dr. Ekta Funk Bilirubin [Mass/Vol] 0.4 mg/dL Normal 0.2-1.0 [facility] Comment on above: Performed By: #### I NSULIN #### [facility] [address] [place] [address] Dr. Ekta Funk Calcium [Mass/Vol] 9.2 mg/dL Normal 8.5-10.1 [facility] Comment on above: Performed By: #### I NSULIN #### [facility] [address] [address] [address] Ekta Funk Chloride [Moles/Vol] 98 mmol/L Normal 98-107 [facility] Comment on above: Performed By: #### I NSULIN #### [facility] [address] [address] [address] Ekta Funk CO2 [Moles/Vol] 26.4 mmol/L Normal 21.0-32.0 [facility] Comment on above: Performed By: #### I NSULIN #### [facility] [address] [address] [address] Ekta Funk Creatinine [Mass/Vol] 2.20 mg/dL Critically high 0.55-1.02 [facility] Comment on above: Performed By: #### I NSULIN #### [facility] [address] [place] [address] Dr. Ekta Funk EGFR-AF KU[place]I 26 mL/min/1.73m2 Critically low >=60 [facility] Comment on above: Performed By: #### I NSULIN #### [facility] [address] [place] [address] Dr. Ekta Funk EGFR-NON AF [place] 22 mL/min/1.73m2 Critically low >=60 [facility] Comment on above: Performed By: #### I NSULIN #### [facility] [address] [place] [address] Dr. Ekta Funk Globulin (S) [Mass/Vol] 3.8 g/dL Normal [facility] Comment on above: Performed By: #### I NSULIN #### [facility] [address] [address] [address] Ekta Funk Glucose [Mass/Vol] 142 mg/dL Critically high 74-106 [facility] Comment on above: Performed By: #### I NSULIN #### [facility] [address] [address] [address] Ekta Funk Potassium [Moles/Vol] 4.5 mmol/L Normal 3.5-5.1 [facility] Comment on above: Performed By: #### I NSULIN #### [facility] [address] [address] [address] Ekta Funk Protein [Mass/Vol] 7.0 g/dL Normal 6.4-8.2 [facility] Comment on above: Performed By: #### I NSULIN #### [facility] [address] [address] [address] Ekta Funk Sodium [Moles/Vol] 139 mmol/L Normal 136-145 [facility] Comment on above: Performed By: #### I NSULIN #### [facility] [address] [address] [address] Ekta Funk Urea nitrogen [Mass/Vol] 57.0 mg/dL Critically high 7.0-18.0 [facility] Comment on above: Performed By: #### I NSULIN #### [facility] [address] [address] [address] Ekta Funk Urea nitrogen/Creatinine [Mass ratio] 25.9 mg/mg Normal [facility] Comment on above: Performed By: #### I NSULIN #### [facility] [address] [address] [address] Ekta Funk T3, TOTAL (TRIIODOTHYRONINE) on 10-21-2022 T3, TOTAL 63 ng/dL Critically low 71-180 [facility] Comment on above: Performed By: #### C MP #### [facility] [address] [address] [address] Ekta Funk XR ABD FLAT_UPon 10-21-2022 [...] by: DANIEL MARIE Date: 2022-10-21 11:42 Normal [facility] XR CHEST 2 Von 10-21-2022 XR [...] by: CHRISTIANO MORALES Date: 2022-10-21 11:23 Normal [facility] BNPon 10-20-2022 Natriuretic peptide B (Bld) [Mass/Vol] 2512.0 pg/mL Critically high <=900.0 [facility] Comment on above: Performed By: #### B CAROLYN LAUGHLIN, IRON #### [facility] [address] [place] [address] Dr. Ekta Funk CARDIAC BRITTANIE ADMITon 023 CK [Catalytic activity/Vol] 35 U/L Normal 26-192 [facility] Comment on above: Performed By: #### Bob FelixFOL VITAD, IRON #### [facility] [address] [address] [address] Ekta Funk CK.MB [Mass/Vol] 0.64 ng/mL Normal <=3.60 [facility] Comment on above: Performed By: #### Bob SIDDIQIL VITAD, IRON #### [facility] [address] [address] [address] Ekta Funk HSTROP 28.1 pg/mL Normal 4.0-51.3 [facility] Comment on above: Result Comment: CUT- OFF POINTS HAVE BEEN ESTABLISHED BASED ON THE FOURTH UNIVERSAL DEFINITIONS OF MYOCARDIAL INFARCTION. THE UPPER REFERENCE LIMIT (URL) OF TROPONIN, DEFINED THE 99TH PERCENTILE OF cTnI DISTRIBUTION IN A REFERENCE POPULATION, HAS BEEN CONFIRMED THE DECISION THRESHOLD FOR DC DIAGNOSIS. Performed By: #### B 12FOL VITAD, IRON #### [facility] [address] [address] [address] Ekta Funk EVELYN 57 ng/mL Normal 9-82 [facility] Comment on above: Performed By: #### B NENO LAUGHLINAD, IRON #### [facility] [address] [address] [address] Ekta Funk CBC AUTO DIFFon 10-20-2022 BASO # 0.0 103/ul Normal 0.0-0.1 [facility] Comment on above: Performed By: #### C BC #### [facility] [address] [address] [address] Ekta Funk Basophils/100 WBC (Bld) 0.2 % Normal 0.2-2.0 [facility] Comment on above: Performed By: #### C BC #### [facility] [address] [address] [address] Ekta Funk EO # 0.2 103/ul Normal 0.0-0.7 [facility] Comment on above: Performed By: #### C BC #### [facility] [address] [address] [address] Ekta Funk Eosinophils/100 WBC (Bld) 1.4 % Normal 0.9-7.0 [facility] Comment on above: Performed By: #### C BC #### [facility] [address] [address] [address] Ekta Funk Erythrocyte distribution width (RBC) [Ratio] 12.9 % Normal 11.0-15.0 [facility] Comment on above: Performed By: #### C BC #### [facility] [address] [address] [address] Ekta Funk Hematocrit (Bld) [Volume fraction] 34.7 % Critically low 36.0-48.0 [facility] Comment on above: Performed By: #### C BC #### [facility] [address] [address] [address] Ekta Funk Hemoglobin (Bld) [Mass/Vol] 11.8 g/dL Critically low 12.0-16.0 [facility] Comment on above: Performed By: #### C BC #### [facility] [address] [address] [address] Ekta Funk IG # 0.09 10e3/ul Critically high 0.00-0.03 [facility] Comment on above: Performed By: #### C BC #### [facility] [address] [address] [address] Ekta Funk IG % 0.8 % Critically high 0.0-0.5 [facility] Comment on above: Performed By: #### C BC #### [facility] [address] [place] [address] Dr. Ekta Funk LYMPH # 1.9 103/ul Normal 1.2-3.8 [facility] Comment on above: Performed By: #### C BC #### [facility] [address] [place] [address] Dr. Ekta Funk Lymphocytes/100 WBC (Bld) 16.1 % Critically low 20.5-60.0 [facility] Comment on above: Performed By: #### C BC #### [facility] [address] [place] [address] Dr. Ekta Funk MANUAL DIFF REQ NO Normal [facility] Comment on above: Performed By: #### C BC #### [facility] [address] [place] [address] Dr. Ekta Funk MCH (RBC) [Entitic mass] 32.6 pg Normal 26.7-34.0 [facility] Comment on above: Performed By: #### C BC #### [facility] [address] [place] [address] Dr. Ekta Funk MCHC (RBC) [Mass/Vol] 34.0 g/dL Normal 29.9-35.2 [facility] Comment on above: Performed By: #### C BC #### [facility] [address] [place] [address] Dr. Ekta Funk MCV (RBC) [Entitic vol] 95.9 fL Normal 81.0-99.0 [facility] Comment on above: Performed By: #### C BC #### [facility] [address] [place] [address] Dr. Ekta Funk MONO # 0.8 103/ul Normal 0.3-0.8 [facility] Comment on above: Performed By: #### C BC #### [facility] [address] [address] [address] Ekta uFnk Monocytes/100 WBC (Bld) 7.0 % Normal 1.7-12.0 [facility] Comment on above: Performed By: #### C BC #### [facility] [address] [address] [address] Ekta Funk NEUT # 8.8 103/ul Critically high 1.4-6.5 [facility] Comment on above: Performed By: #### C BC #### [facility] [address] [address] [address] Ekta Funk Neutrophils/100 WBC (Bld) 74.5 % Normal 43.0-75.0 [facility] Comment on above: Performed By: #### C BC #### [facility] [address] [place] [address] Dr. Ekta Funk Platelet mean volume (Bld) [Entitic vol] 9.8 fL Normal 9.5-13.5 [facility] Comment on above: Performed By: #### C BC #### [facility] [address] [place] [address] Dr. Ekta Funk PLT 203 103/ul Normal 150-450 [facility] Comment on above: Performed By: #### C BC #### [facility] [address] [place] [address] Dr. Ekta Funk RBC 3.62 106/ul Critically low 4.20-5.40 [facility] Comment on above: Performed By: #### C BC #### [facility] [address] [place] [address] Dr. Ekta Funk WBC 11.8 103/ul Critically high 4.0-11.0 [facility] Comment on above: Performed By: #### C BC #### [facility] [address] [place] [address] Dr. Ekta Funk CULTURE URINEon 10-20-2022 CULTURE URINE Culture Observations : NO GROWTH. Normal [facility] Comment on above: Performed By: #### I NSULIN #### [facility] [address] [place], [place] [address] Dr. Ekta Funk [facility]11 SARS-CoV-2 (COVID-19) RNA GANESH+probe Ql (Unsp spec) Not detected Normal NOT DETECTED [facility] Comment on above: Result Comment: When [...] for this test is supported by the House Nurse of Health and Human Service's declaration that [...] By: #### B 12FOL, VITAD, IRON #### [facility] [address] [place] [address] [address] [address] Ekta Funk ECHOCARDIO M/2D COMPLETEon 0 10-20-2022 ECHOCARDIO M/2D COMPLETE Patient: SHEILA MAC Exam Date: 10/20/2022 : 1950 Gender:F Ordering : DR KRZYSZTOF HARP . Admission #: [id number] Family : Order #: [id number] CLICK HERE TO VIEW EXAM ECHOCARDIOGRAM REPORT [...] Mckay M.D. on 10/20/2022 at 14:57 Normal [facility] PROF 14(COMP METB)on 023 Albumin [Mass/Vol] 2.8 g/dL Critically low 3.4-5.0 [facility] Comment on above: Performed By: #### B 12FOL, VITAD, IRON #### [facility] [address] [address] [address] Ekta Funk Albumin/Globulin [Mass ratio] 0.7 {ratio} [facility] Comment on above: Performed By: #### B 12FOL, VITAD, IRON #### [facility] [address] [address] [address] Ekta Funk ALP [Catalytic activity/Vol] 84 U/L Normal 46-116 [facility] Comment on above: Performed By: #### B 12FOL, VITAD, IRON #### [facility] [address] [address] [address] Ekta Funk ALT [Catalytic activity/Vol] 29 U/L Normal 14-59 [facility] Comment on above: Performed By: #### B 12FOL, VITAD, IRON #### [facility] [address] [address] [address] Ekta Funk Anion gap [Moles/Vol] 15.9 mmol/L Normal [facility] Comment on above: Performed By: #### B 12FOL, VITAD, IRON #### [facility] [address] [address] [address] Ekta Funk AST [Catalytic activity/Vol] 15 U/L Normal 15-37 [facility] Comment on above: Performed By: #### B 12FOL, VITAD, IRON #### [facility] [address] [place] [address] Dr. Ekta Funk Bilirubin [Mass/Vol] 0.3 mg/dL Normal 0.2-1.0 [facility] Comment on above: Performed By: #### B 12FOL, VITAD, IRON #### [facility] [address] [place] [address] Dr. Ekta Funk Calcium [Mass/Vol] 8.9 mg/dL Normal 8.5-10.1 [facility] Comment on above: Performed By: #### B 12FOL, VITAD, IRON #### [facility] [address] [place] [address] Dr. Ekta Funk Chloride [Moles/Vol] 103 mmol/L Normal 98-107 [facility] Comment on above: Performed By: #### B 12FOL, VITAD, IRON #### [facility] [address] [place] [address] Dr. Ekta Funk CO2 [Moles/Vol] 26.3 mmol/L Normal 21.0-32.0 [facility] Comment on above: Performed By: #### B 12FOL, VITAD, IRON #### [facility] [address] [place] [address] Dr. Ekta Funk Creatinine [Mass/Vol] 1.99 mg/dL Critically high 0.55-1.02 [facility] Comment on above: Performed By: #### B 12FOL, VITAD, IRON #### [facility] [address] [place] [address] Dr. Ekta Funk EGFR-AF KUWAITI 30 mL/min/1.73m2 Critically low >=60 [facility] Comment on above: Performed By: #### B 12FOL, VITAD, IRON #### [facility] [address] [place] [address] Dr. Ekta Funk EGFR-NON AF KUWAITI 24 mL/min/1.73m2 Critically low >=60 [facility] Comment on above: Performed By: #### B 12FOL, VITAD, IRON #### [facility] [address] [address] [address] Ekta Funk Globulin (S) [Mass/Vol] 4.1 g/dL Normal [facility] Comment on above: Performed By: #### B 12FOL, VITAD, IRON #### [facility] [address] [address] [address] Ekta Funk Glucose [Mass/Vol] 115 mg/dL Critically high 74-106 [facility] Comment on above: Performed By: #### B 12FOL, VITAD, IRON #### [facility] [address] [place] [address] Dr. Ekta Funk Potassium [Moles/Vol] 5.2 mmol/L Critically high 3.5-5.1 [facility] Comment on above: Performed By: #### B 12FOL, VITAD, IRON #### [facility] [address] [place] [address] Dr. Ekta Funk Protein [Mass/Vol] 6.9 g/dL Normal 6.4-8.2 [facility] Comment on above: Performed By: #### B 12FOL, VITAD, IRON #### [facility] [address] [place] [address] Dr. Ekta Funk Sodium [Moles/Vol] 140 mmol/L Normal 136-145 [facility] Comment on above: Performed By: #### B 12FOL, VITAD, IRON #### [facility] [address] [place] [address] Dr. Ekta Funk Urea nitrogen [Mass/Vol] 45.0 mg/dL Critically high 7.0-18.0 [facility] Comment on above: Performed By: #### B 12FOL, VITAD, IRON #### [facility] [address] [place] [address] Dr. Ekta Funk Urea nitrogen/Creatinine [Mass ratio] 22.6 mg/mg Normal [facility] Comment on above: Performed By: #### B 12FOL, VITAD, IRON #### [facility] [address] [place] [address] Dr. Ekta Funk T4on 10-20-2022 T4 [Mass/Vol] 6.10 ug/dL Normal 4.80-13.90 [facility] Comment on above: Performed By: #### B 12FOL, VITAD, IRON #### [facility] [address] [place] [address] Dr. Ekta Funk TSHon 10-20-2022 TSH 1.336 uIU/mL Normal 0.358-3.740 [facility] Comment on above: Performed By: #### B 12FOL, VITAD, IRON #### [facility] [address] [place] [address] Dr. Ekta Funk UA RANDOM W/MICROSCOPICon BACTERIA TRACE Abnormal NONE SEEN [facility] Comment on above: Performed By: #### B 12FOL, VITAD, IRON #### [facility] [address] [place] [address] Dr. Ekta Funk Bilirubin Ql (U) Negative Normal NEGATIVE [facility] Comment on above: Performed By: #### B 12FOL, VITAD, IRON #### [facility] [address] [place] [address] Dr. Ekta Funk CAST NONE SEEN Normal NONE SEEN [facility] Comment on above: Performed By: #### B 12FOL, VITAD, IRON #### [facility] [address] [place] [address] Dr. Ekta Funk Clarity (U) CLEAR Normal CLEAR [facility] Comment on above: Performed By: #### B 12FOL, VITAD, IRON #### [facility] [address] [place] [address] Dr. Ekta Funk Color (U) LT. YELLOW Normal YELLOW [facility] Comment on above: Performed By: #### B 12FOL, VITAD, IRON #### [facility] [address] [place] [address] Dr. Ekta Funk Crystals LM Nom (Urine sed) NONE SEEN Normal NONE SEEN [facility] Comment on above: Performed By: #### B 12FOL, VITAD, IRON #### [facility] [address] [address] [address] Ekta Funk Epithelial cells LM Ql (Urine sed) RARE Normal NONE SEEN /RARE [facility] Comment on above: Performed By: #### B 12FOL, VITAD, IRON #### [facility] [address] [address] [address] Ekta Funk Glucose Ql (U) Negative Normal NEGATIVE [facility] Comment on above: Performed By: #### B 12FOL, VITAD, IRON #### [facility] [address] [address] [address] Ekta Funk Hemoglobin Ql (U) Negative Normal NEGATIVE [facility] Comment on above: Performed By: #### B 12FOL, VITAD, IRON #### [facility] [address] [place] [address] Dr. Ekta Funk Ketones Ql (U) Negative Normal NEGATIVE [facility] Comment on above: Performed By: #### B 12FOL, VITAD, IRON #### [facility] [address] [address] [address] Ekta Funk LEUKOCYTES Negative Normal NEGATIVE [facility] Comment on above: Performed By: #### B 12FOL, VITAD, IRON #### [facility] [address] [place] [address] Dr. Ekta Funk MUCOUS NONE SEEN Normal NONE SEEN [facility] Comment on above: Performed By: #### B 12FOL, VITAD, IRON #### [facility] [address] [address] [address] Ekta Funk Nitrite Ql (U) Negative Normal NEGATIVE [facility] Comment on above: Performed By: #### B 12FOL, VITAD, IRON #### [facility] [address] [place] [address] Dr. Ekta Funk pH (U) 6.0 [pH] Normal 5-9 [facility] Comment on above: Performed By: #### B 12FOL, VITAD, IRON #### [facility] [address] [address] [address] Ekta Funk RBC 0-2 Normal 0-2 [facility] Comment on above: Performed By: #### B 12FOL, VITAD, IRON #### [facility] [address] [place] [address] Dr. Ekta Funk SPEC GRAVITY <=1.005 Abnormal 1.005-<=1.025 [facility] Comment on above: Performed By: #### B 12FOL, VITAD, IRON #### [facility] [address] [place] [address] Dr. Ekta Funk UA PROTEIN Negative Normal NEGATIVE/ TRACE [facility] Comment on above: Performed By: #### B 12FOL, VITAD, IRON #### [facility] [address] [place] [address] Dr. Ekta Funk Urobilinogen Qn (U) 0.2 {Ivan'U}/dL Normal 0.2 - 1. 0 [facility] Comment on above: Performed By: #### B 12FOL, VITAD, IRON #### [facility] [address] [place] [address] Dr. Ekta Funk WBC NONE SEEN Normal NONE SEEN [facility] Comment on above: Performed By: #### B 12FOL, VITAD, IRON #### [facility] [address] [place] [address] Dr. Ekta Funk BNPon 10-19-2022 Natriuretic peptide B (Bld) [Mass/Vol] 1355.0 pg/mL Critically high <=900.0 [facility] Comment on above: Performed By: #### B 12FOL, VITAD, IRON #### [facility] [address] [place] [address] Dr. Ekta Funk INSULINon 10-19-2022 Insulin 12.4 uIU/mL Normal 2.6-24.9 [facility] Comment on above: Performed By: #### I NSULIN #### [facility] [address] [place] [address] Dr. Ekta Funk OCC BLD IMMUNO SCREENon OCCULT BLOOD Positive Abnormal NEGATIVE [facility] Comment on above: Performed By: #### B 12FOL, VITAD, IRON #### [facility] [address] [address] [address] Ekta Funk PROF CHEM 8 (BAS METB)on Anion gap [Moles/Vol] 15.8 mmol/L Normal [facility] Comment on above: Performed By: #### B 12FOL, VITAD, IRON #### [facility] [address] [place] [address] Dr. Ekta Funk Calcium [Mass/Vol] 8.8 mg/dL Normal 8.5-10.1 [facility] Comment on above: Performed By: #### B 12FOL, VITAD, IRON #### [facility] [address] [place] [address] Dr. Ekta Funk Chloride [Moles/Vol] 107 mmol/L Normal 98-107 [facility] Comment on above: Performed By: #### B 12FOL, VITAD, IRON #### [facility] [address] [place] [address] Dr. Ekta Funk CO2 [Moles/Vol] 21.5 mmol/L Normal 21.0-32.0 [facility] Comment on above: Performed By: #### B 12FOL, VITAD, IRON #### [facility] [address] [place] [address] Dr. Ekta Funk Creatinine [Mass/Vol] 1.62 mg/dL Critically high 0.55-1.02 [facility] Comment on above: Performed By: #### B 12FOL, VITAD, IRON #### [facility] [address] [place] [address] Dr. Ekta Funk EGFR-AF KUWAITI 38 mL/min/1.73m2 Critically low >=60 [facility] Comment on above: Performed By: #### B 12FOL, VITAD, IRON #### [facility] [address] [place] [address] Dr. Ekta Funk EGFR-NON AF KU[place]I 31 mL/min/1.73m2 Critically low >=60 [facility] Comment on above: Performed By: #### B 12FOL, VITAD, IRON #### [facility] [address] [address] [address] Ekta Funk Glucose [Mass/Vol] 134 mg/dL Critically high 74-106 [facility] Comment on above: Performed By: #### B 12FOL, VITAD, IRON #### [facility] [address] [address] [address] Ekta Funk Potassium [Moles/Vol] 5.3 mmol/L Critically high 3.5-5.1 [facility] Comment on above: Performed By: #### B 12FOL, VITAD, IRON #### [facility] [address] [address] [address] Ekta Funk Sodium [Moles/Vol] 139 mmol/L Normal 136-145 [facility] Comment on above: Performed By: #### B 12FOL, VITAD, IRON #### [facility] [address] [place] [address] Dr. Ekta Funk Urea nitrogen [Mass/Vol] 37.0 mg/dL Critically high 7.0-18.0 [facility] Comment on above: Performed By: #### B 12FOL, VITAD, IRON #### [facility] [address] [place] [address] Dr. Ekta Funk Urea nitrogen/Creatinine [Mass ratio] 22.8 mg/mg Normal [facility] Comment on above: Performed By: #### B 12FOL, VITAD, IRON #### [facility] [address] [place] [address] Dr. Ekta Funk TROPONIN, HIGH SENSITIVITYon 10-19-2022 HSTROP 53.2 pg/mL Critically high 4.0-51.3 [facility] Comment on above: Result Comment: CUT- OFF POINTS HAVE BEEN ESTABLISHED BASED ON THE FOURTH UNIVERSAL DEFINITIONS OF MYOCARDIAL INFARCTION. THE UPPER REFERENCE LIMIT (URL) OF TROPONIN, DEFINED THE 99TH PERCENTILE OF cTnI DISTRIBUTION IN A REFERENCE POPULATION, HAS BEEN CONFIRMED THE DECISION THRESHOLD FOR DC DIAGNOSIS. Performed By: #### B 12FOL, VITAD, IRON #### [facility] [address] [place] [address] Dr. Ekta Funk BNPon 10-18-2022 Natriuretic peptide B (Bld) [Mass/Vol] 1386.0 pg/mL Critically high <=900.0 [facility] Comment on above: Performed By: #### C VDTBH #### [facility] [address] [place] [address] Dr. Ekta Funk CARDIAC BRITTANIE ADMITon 023 CK [Catalytic activity/Vol] 34 U/L Normal 26-192 [facility] Comment on above: Performed By: #### C VDTBH #### [facility] [address] [place] [address] Dr. Ekta Funk CK.MB [Mass/Vol] 1.43 ng/mL Normal <=3.60 [facility] Comment on above: Performed By: #### C VDTBH #### [facility] [address] [place] [address] Dr. Ekta Funk HSTROP 74.1 pg/mL Critically high 4.0-51.3 [facility] Comment on above: Result Comment: CUT- OFF POINTS HAVE BEEN ESTABLISHED BASED ON THE FOURTH UNIVERSAL DEFINITIONS OF MYOCARDIAL INFARCTION. THE UPPER REFERENCE LIMIT (URL) OF TROPONIN, DEFINED THE 99TH PERCENTILE OF cTnI DISTRIBUTION IN A REFERENCE POPULATION, HAS BEEN CONFIRMED THE DECISION THRESHOLD FOR DC DIAGNOSIS. Performed By: #### C VDTBH #### [facility] [address] [place] [address] Dr. Ekta Funk EVELYN 52 ng/mL Normal 9-82 [facility] Comment on above: Performed By: #### C VDTBH #### [facility] [address] [place] [address] Dr. Ekta Funk CBC AUTO DIFFon 10-18-2022 BASO # 0.0 103/ul Normal 0.0-0.1 [facility] Comment on above: Performed By: #### C BC #### [facility] [address] [place] [address] Dr. Ekta Funk Basophils/100 WBC (Bld) 0.3 % Normal 0.2-2.0 [facility] Comment on above: Performed By: #### C BC #### [facility] [address] [place] [address] Dr. Ekta Funk EO # 0.1 103/ul Normal 0.0-0.7 [facility] Comment on above: Performed By: #### C BC #### [facility] [address] [place] [address] Dr. Ekta Funk Eosinophils/100 WBC (Bld) 0.9 % Normal 0.9-7.0 [facility] Comment on above: Performed By: #### C BC #### [facility] [address] [place] [address] Dr. Ekta Funk Erythrocyte distribution width (RBC) [Ratio] 13.2 % Normal 11.0-15.0 [facility] Comment on above: Performed By: #### C BC #### [facility] [address] [place] [address] Dr. Ekta Funk Hematocrit (Bld) [Volume fraction] 38.9 % Normal 36.0-48.0 [facility] Comment on above: Performed By: #### C BC #### [facility] [address] [place] [address] Dr. Ekta Funk Hemoglobin (Bld) [Mass/Vol] 12.4 g/dL Normal 12.0-16.0 [facility] Comment on above: Performed By: #### C BC #### [facility] [address] [place] [address] Dr. Ekta Funk IG # 0.08 10e3/ul Critically high 0.00-0.03 [facility] Comment on above: Performed By: #### C BC #### [facility] [address] [place] [address] Dr. Ekta Funk IG % 0.5 % Normal 0.0-0.5 [facility] Comment on above: Performed By: #### C BC #### [facility] [address] [place] [address] Dr. Ekta Funk LYMPH # 1.4 103/ul Normal 1.2-3.8 [facility] Comment on above: Performed By: #### C BC #### [facility] [address] [place] [address] Dr. Ekta Funk Lymphocytes/100 WBC (Bld) 9.6 % Critically low 20.5-60.0 [facility] Comment on above: Performed By: #### C BC #### [facility] [address] [place] [address] Dr. Ekta Funk MANUAL DIFF REQ NO Normal [facility] Comment on above: Performed By: #### C BC #### [facility] [address] [place] [address] Dr. Ekta Funk MCH (RBC) [Entitic mass] 32.3 pg Normal 26.7-34.0 [facility] Comment on above: Performed By: #### C BC #### [facility] [address] [place] [address] Dr. Ekta Funk MCHC (RBC) [Mass/Vol] 31.9 g/dL Normal 29.9-35.2 [facility] Comment on above: Performed By: #### C BC #### [facility] [address] [place] [address] Dr. Ekta Funk MCV (RBC) [Entitic vol] 101.3 fL Critically high 81.0-99.0 [facility] Comment on above: Performed By: #### C BC #### [facility] [address] [place] [address] Dr. Ekta Funk MONO # 0.9 103/ul Critically high 0.3-0.8 [facility] Comment on above: Performed By: #### C BC #### [facility] [address] [place] [address] Dr. Ekta Funk Monocytes/100 WBC (Bld) 6.3 % Normal 1.7-12.0 [facility] Comment on above: Performed By: #### C BC #### [facility] [address] [place] [address] Dr. Ekta Funk NEUT # 12.0 103/ul Critically high 1.4-6.5 [facility] Comment on above: Performed By: #### C BC #### [facility] [address] [address] [address] Ekta Funk Neutrophils/100 WBC (Bld) 82.4 % Critically high 43.0-75.0 [facility] Comment on above: Performed By: #### C BC #### [facility] [address] [address] [address] Ekta Funk Platelet mean volume (Bld) [Entitic vol] 9.7 fL Normal 9.5-13.5 [facility] Comment on above: Performed By: #### C BC #### [facility] [address] [address] [address] Ekta Funk PLT 176 103/ul Normal 150-450 [facility] Comment on above: Performed By: #### C BC #### [facility] [address] [place] [address] Dr. Ekta Funk RBC 3.84 106/ul Critically low 4.20-5.40 [facility] Comment on above: Performed By: #### C BC #### [facility] [address] [place] [address] Dr. Ekta Funk WBC 14.6 103/ul Critically high 4.0-11.0 [facility] Comment on above: Performed By: #### C BC #### [facility] [address] [place] [address] Dr. Ekta Funk FREE THYROXINE INDEX T7on FTI 2.34 Normal 1.30-4.50 [facility] Comment on above: Performed By: #### C VDTBH #### [facility] [address] [place] [address] Dr. Ekta Funk T3U 36.0 % Normal 30.0-39.0 [facility] Comment on above: Performed By: #### C VDTBH #### [facility] [address] [place] [address] Dr. Ekta Funk T4 [Mass/Vol] 6.50 ug/dL Normal 4.80-13.90 [facility] Comment on above: Performed By: #### C VDTBH #### [facility] [address] [address] [address] Ekta Funk GLYCOHEMOGLOBIN A1Con 2022 ADA RECOMMENDATION SEE BELOW Normal [facility] Comment on above: Result Comment: ADA RECOMMENDED LIMIT 4.0 - 6.0 ADA THERAPEUTIC TARGET < 7.0 ACTION SUGGESTED > 7.0 Performed By: #### B 12FOL, VITAD, IRON #### [facility] [address] [address] [address] Ekta Funk Glucose [Mass/Vol] 140 mg/dL Normal [facility] Comment on above: Performed By: #### B 12FOL, VITAD, IRON #### [facility] [address] [address] [address] Ekta Funk HbA1c (Bld) [Mass fraction] 6.5 % Critically high 4.5-6.2 [facility] Comment on above: Performed By: #### B 12FOL, VITAD, IRON #### [facility] [address] [address] [address] Ekta Funk IRONon 10-18-2022 Iron [Mass/Vol] 62.0 ug/dL Normal 50.0-170.0 [facility] Comment on above: Performed By: #### B 12FOL, VITAD, IRON #### [facility] [address] [place] [address] Dr. Ekta Funk LIPID PROFILEon 10-18-2022 CHOL-HDL RATIO NORM SEE BELOW Normal [facility] Comment on above: Result Comment: 3.3 - 4.4 LOW RISK 4.4 - 7.1 AVERAGE RISK 7.1 - 11.0 MODERATE RISK >11.0 HIGH RISK Performed By: #### C VDTBH #### [facility] [address] [address] [address] Ekta Funk Cholesterol [Mass/Vol] 242 mg/dL Critically high <=200 [facility] Comment on above: Performed By: #### C VDTBH #### [facility] [address] [place] [address] Dr. Ekta Funk Cholesterol in HDL [Mass/Vol] 74 mg/dL Critically high 40-60 [facility] Comment on above: Performed By: #### C VDTBH #### [facility] [address] [address] [address] Ekta Funk Cholesterol in LDL [Mass/Vol] 139.4 mg/dL Normal [facility] Comment on above: Performed By: #### C VDTBH #### [facility] [address] [address] [address] Ekta Funk Cholesterol.total/Ch olesterol in HDL [Mass ratio] 3.3 {ratio} Normal [facility] Comment on above: Performed By: #### C VDTBH #### [facility] [address] [address] [address] Ekta Funk HDL NORMAL > or = 60 mg/dl - LO W CARDIOVASCULAR RISK <40 mg/dl - HIGH CARDIOVASCULAR RISK Normal [facility] Comment on above: Performed By: #### C VDTBH #### [facility] [address] [place] [address] Dr. Ekta Funk LDL CALC NORMAL SEE BELOW Normal [facility] Comment on above: Result Comment: <100 mg/dl OPTIMAL 100 - 129 mg/dl NEAR OR ABOVE OPTIMAL 130 - 159 mg/dl BORDERLINE HIGH 160 - 189 mg/dl HIGH >190 mg/dl VERY HIGH Performed By: #### C VDTBH #### [facility] [address] [place] [address] Dr. Ekta Funk Triglyceride [Mass/Vol] 143 mg/dL Normal <=150 [facility] Comment on above: Performed By: #### C VDTBH #### [facility] [address] [place] [address] Dr. Ekta Funk VLDL CALC 28.6 mg/dL Normal [facility] Comment on above: Performed By: #### C VDTBH #### [facility] [address] [place] [address] Dr. Ekta Funk PROF 14(COMP METB)on 023 Albumin [Mass/Vol] 2.8 g/dL Critically low 3.4-5.0 [facility] Comment on above: Performed By: #### C VDTBH #### [facility] [address] [address] [address] Ekta Funk Albumin/Globulin [Mass ratio] 0.7 {ratio} Normal [facility] Comment on above: Performed By: #### C VDTBH #### [facility] [address] [address] [address] Ekta Funk ALP [Catalytic activity/Vol] 90 U/L Normal 46-116 [facility] Comment on above: Performed By: #### C VDTBH #### [facility] [address] [address] [address] Ekta Funk ALT [Catalytic activity/Vol] 26 U/L Normal 14-59 [facility] Comment on above: Performed By: #### C VDTBH #### [facility] [address] [place] [address] Dr. Ekta Funk Anion gap [Moles/Vol] 14.5 mmol/L Normal [facility] Comment on above: Performed By: #### C VDTBH #### [facility] [address] [place] [address] Dr. Ekta Funk AST [Catalytic activity/Vol] 14 U/L Critically low 15-37 [facility] Comment on above: Performed By: #### C VDTBH #### [facility] [address] [place] [address] Dr. Ekta Funk Bilirubin [Mass/Vol] 0.4 mg/dL Normal 0.2-1.0 [facility] Comment on above: Performed By: #### C VDTBH #### [facility] [address] [place] [address] Dr. Ekta Funk Calcium [Mass/Vol] 8.9 mg/dL Normal 8.5-10.1 [facility] Comment on above: Performed By: #### C VDTBH #### [facility] [address] [address] [address] Ekta Funk Chloride [Moles/Vol] 106 mmol/L Normal 98-107 [facility] Comment on above: Performed By: #### C VDTB #### [facility] [address] [address] [address] Ekta Funk CO2 [Moles/Vol] 23.5 mmol/L Normal 21.0-32.0 [facility] Comment on above: Performed By: #### C VDTBH #### [facility] [address] [address] [address] Ekta Funk Creatinine [Mass/Vol] 1.70 mg/dL Critically high 0.55-1.02 [facility] Comment on above: Performed By: #### C VDTBH #### [facility] [address] [address] [address] Ekta Funk EGFR-AF KUWAITI 36 mL/min/1.73m2 Critically low >=60 [facility] Comment on above: Performed By: #### C VDTBH #### [facility] [address] [place] [address] Dr. Ekta Funk EGFR-NON AF KUWAITI 29 mL/min/1.73m2 Critically low >=60 [facility] Comment on above: Performed By: #### C VDTBH #### [facility] [address] [address] [address] Ekta Funk Globulin (S) [Mass/Vol] 4.0 g/dL Normal [facility] Comment on above: Performed By: #### C VDTBH #### [facility] [address] [place] [address] Dr. Ekta Funk Glucose [Mass/Vol] 99 mg/dL Normal 74-106 [facility] Comment on above: Performed By: #### C VDTBH #### [facility] [address] [address] [address] Ekta Funk Potassium [Moles/Vol] 5.0 mmol/L Normal 3.5-5.1 [facility] Comment on above: Performed By: #### C VDTBH #### [facility] [address] [address] [address] Ekta Funk Protein [Mass/Vol] 6.8 g/dL Normal 6.4-8.2 [facility] Comment on above: Performed By: #### C VDTBH #### [facility] [address] [place] [address] Dr. Ekta Funk Sodium [Moles/Vol] 139 mmol/L Normal 136-145 [facility] Comment on above: Performed By: #### C VDTBH #### [facility] [address] [place] [address] Dr. Ekta Funk Urea nitrogen [Mass/Vol] 36.0 mg/dL Critically high 7.0-18.0 [facility] Comment on above: Performed By: #### C VDTBH #### [facility] [address] [place] [address] Dr. Ekta Funk Urea nitrogen/Creatinine [Mass ratio] 21.2 mg/mg Normal [facility] Comment on above: Performed By: #### C VDTBH #### [facility] [address] [place] [address] Dr. Ekta Funk TSHon 10-18-2022 TSH 0.910 uIU/mL Normal 0.358-3.740 [facility] Comment on above: Performed By: #### C VDTBH #### [facility] [address] [place] [address] Dr. Ekta Funk Covid-19 PCR ([facility])on 09-10 SARS-CoV-2 (COVID-19) RNA GANESH+probe Ql (Unsp spec) Detected Abnormal NOT DETECTED [facility] Comment on above: Result Comment: This test is not yet approved or cleared by the [place] FDA. When there are no FDA-approved or cleared tests available, and other criteria are met, FDA can make tests available under an emergency access mechanism called an Emergency Use Authorization (EUA). The EUA for this test is supported by the [place] of Health and Human Service's declaration that [...] used). Performed By: #### C MP #### [facility] [address] [place] [address] Dr. Ekta Funk INFLUENZA A AND B AGon 09-25 [facility] SEE BELOW Normal [facility] Comment on above: Result Comment: Nega tive for Flu A protein angiten. Infection due to Flu A cannot be ruled out. Flu A angiten in the sample may be below the detection limit of the test. Performed By: #### B 12FOL, VITAD, IRON #### [facility] [address] [place] [address] Dr. [facility] Normal [facility] Comment on above: Result Comment: Nega tive for Flu B protein antigen. Infection due to Flu B cannot be ruled out. Flu B antigen in the sample may be below the detection limit of the test. Performed By: #### B 12FOL, VITAD, IRON #### [facility] [address] [place] [address] Dr. Ekta Funk INFLUENZA A AG Negative Normal NEGATIVE SEE COMMENT [facility] Comment on above: Performed By: #### B 12FOL, VITAD, IRON #### [facility] [address] [place] [address] Dr. Ekta Funk INFLUENZA B AG Negative Normal NEGATIVE SEE COMMENT [facility] Comment on above: Performed By: #### B 12FOL, VITAD, IRON #### [facility] [address] [place] [address] Dr. Ekta Funk US CAROTID ART BILon [...] by: GODWIN BECK Date: 2022-05-26 16:06 Normal [facility] MRI BRAIN WO CONon 2 MRI [...] by: DANIEL MARIE Date: 2022-05-25 10:45 Normal [facility] ECHOCARDIO M/2D COMPLETEon 0 05-24-2022 ECHOCARDIO M/2D COMPLETE Patient: SHEILA MAC Exam Date: 05/24/2022 : 1950 Gender:F Ordering : DR KRZYSZTOF HARP . Admission #: [id number] Family : Order #: [id number] CLICK HERE TO VIEW EXAM ECHOCARDIOGRAM REPORT [...] M.D. on 05/24/2022 at 14:45 Normal [facility] BASIC METABOLIC PANELon - Calcium mass conc 9.4 mg/dL Normal 8.6-10.3 The [facility] Comment on above: Order Comment: No: D o not add to previous draw Performed By: #### 0 0071 #### [facility] [address] [place] [address], [place] Chloride molar conc 108 mmol/L High 98-107 The [facility] Comment on above: Order Comment: No: D o not add to previous draw Performed By: #### 0 0071 #### [facility] [address] [place] [address], [place] CO2 molar conc 22 mmol/L Normal 21-31 The [facility] Comment on above: Order Comment: No: D o not add to previous draw Performed By: #### 0 0071 #### [facility] [address] [place] [address], [place] Creatinine mass conc 1.18 mg/dL Normal 0.60-1.20 The [facility] Comment on above: Order Comment: No: D o not add to previous draw Performed By: #### 0 0071 #### [facility] [address] [place] [address], [place] GFR/1.73 sq M predicted among blacks MDRD vol rate/area (S/P/Bld) 55 ml/min/1.73sq m Abnormal >60 The [facility] Comment on above: Order Comment: No: D o not add to previous draw Performed By: #### 0 0071 #### [facility] [address] [place] [address], [place] GFR/1.73 sq M predicted among non-blacks MDRD vol rate/area (S/P/Bld) 45 ml/min/1.73sq m Abnormal >60 The [facility] Comment on above: Order Comment: No: D o not add to previous draw Performed By: #### 0 0071 #### [facility] [address] [place] [address], [facility] Glucose mass conc 166 mg/dL High 70-100 The [facility] Comment on above: Order Comment: No: D o not add to previous draw Performed By: #### 0 0071 #### [facility] [address] [place] [id number], [facility] Potassium molar conc 4.1 mmol/L Normal 3.5-5.1 The [facility] Comment on above: Order Comment: No: D o not add to previous draw Performed By: #### 0 0071 #### [facility] [address] [place] [address], [facility] Sodium molar conc 140 mmol/L Normal 136-145 The [facility] Comment on above: Order Comment: No: D o not add to previous draw Performed By: #### 0 0071 #### [facility] [address] [place] [address], [facility] Urea nitrogen mass conc 21 mg/dL Normal 7-25 The [facility] Comment on above: Order Comment: No: D o not add to previous draw Performed By: #### 0 0071 #### [facility] [address] [place] [address], [facility] CBC COMPLETE BLOOD COUNTon 0 - Erythrocyte distribution width Ratio (RBC) 12.9 % Normal 11.5-15.0 The [facility] Comment on above: Order Comment: No: D o not add to previous draw Performed By: #### 5 [id number] #### [facility] [address] [place] [id number], [facility] Hematocrit Volume Fraction (Bld) 36.7 % Normal 36.0-45.0 The [facility] Comment on above: Order Comment: No: D o not add to previous draw Performed By: #### 5 0608 #### [facility] [address] [place] [address], [facility] Hemoglobin mass conc (Bld) 12.4 g/dL Normal 12.0-15.0 The [facility] Comment on above: Order Comment: No: D o not add to previous draw Performed By: #### 5 0608 #### [facility] [address] [place] [address], [facility] MCH Entitic mass (RBC) 31.2 pg Normal 27.0-33.0 The [facility] Comment on above: Order Comment: No: D o not add to previous draw Performed By: #### 5 0608 #### [facility] [address] [place] [address], [facility] MCHC mass conc (RBC) 33.8 g/dL Normal 32.0-35.0 The [facility] Comment on above: Order Comment: No: D o not add to previous draw Performed By: #### 5 0608 #### [facility] [address] [place] [address], [facility] MCV Entitic volume (RBC) 92.4 fL Normal 82.0-98.0 The [facility] Comment on above: Order Comment: No: D o not add to previous draw Performed By: #### 5 0608 #### [facility] [address] [place] [address], [facility] Nucleated RBC/100 WBC Ratio (Bld) 0 % Normal 0-0 The [facility] Comment on above: Order Comment: No: D o not add to previous draw Performed By: #### 5 0608 #### [facility] [address] [place] [address], [facility] PLAT CNT 227 10*3/uL Normal 150-400 The [facility] Comment on above: Order Comment: No: D o not add to previous draw Performed By: #### 5 0608 #### [facility] [address] [facility] [address], [facility] RBC #/vol (Bld) 3.97 10*6/uL Normal 3.80-5.00 The [facility] Comment on above: Order Comment: No: D o not add to previous draw Performed By: #### 5 0608 #### [facility] [address] [facility] [address] WBC #/vol (Bld) 5.55 10*3/uL Normal 4.00-10.60 The [facility] Comment on above: Order Comment: No: D o not add to previous draw Performed By: #### 5 0608 #### [facility] [address] Cardiovascular Lab Reporton 11-20-2018 Cardiovascular Lab Report [facility] #: [id number] Department of Physician: [facility] [place] Shellie Gaspar M.D. Division of Service Date: 11/20/2018 Cardiology Birthdate: 1950 Adult Cardiovascular Room #: 3AB [id number] [place] [address] Cardiovascular Laboratory Report INDICATION: The patient is a 68-year-old woman who was evaluated in Cardiology Clinic because of new onset symptoms of shortness of breath on mild exertion. Her stress test showed evidence of gyjih-wq-lodnfyxz area of inferoapical ischemia; because of that, she was referred for cardiac catheterization. PROCEDURES: 1. Right heart catheterization. 2. Bilateral selective coronary angiography. 3. Limited right femoral angiography. METHOD: Procedure was explained patient with risks and benefits. She signed informed consent. She was brought to logging rafter laborer in a fasting state. The right groin area was prepped and draped in usual fashion. Using micropuncture technique, the right common femoral artery was accessed. The inner cannula was advanced. Limited femoral angiography was performed followed by upsizing to a 6-Senegalese x 11 cm sheath. Access was also obtained using the same technique in the right common femoral vein and a 6-Senegalese x 11 cm sheath was placed. A 6-Senegalese Michel catheter was used for right heart catheterization with measurement of pressures and calculation of cardiac output using the estimated Ivory method. Michel catheter was removed. Bilateral selective coronary angiography was then performed using 6-Senegalese JL4 and JR4 diagnostic catheters. Catheters were [...] A/Bong Gaspar M.D. Date Trans: 11/20/2018 09:31 A/mmo [id number] cc: Krzysztof Harp M.D. [place] [id number] [facility] [place] [address] Normal [facility] BASIC METABOLIC PANELon 11-08 Calcium mass conc 9.5 mg/dL Normal 8.6-10.3 The [facility] Comment on above: Order Comment: No: D o not add to previous draw Performed By: #### 0 0071 #### [facility] [address] [place] [address], [place] Chloride molar conc 105 mmol/L Normal 98-107 The [facility] Comment on above: Order Comment: No: D o not add to previous draw Performed By: #### 0 0071 #### [facility] [address] [place] [address], [place] CO2 molar conc 24 mmol/L Normal 21-31 The [facility] Comment on above: Order Comment: No: D o not add to previous draw Performed By: #### 0 0071 #### [facility] [address] [place] [address], [place] Creatinine mass conc 1.42 mg/dL High 0.60-1.20 The [facility] Comment on above: Order Comment: No: D o not add to previous draw Performed By: #### 0 0071 #### [facility] [address] [place] [address], [place] GFR/1.73 sq M predicted among blacks MDRD vol rate/area (S/P/Bld) 45 ml/min/1.73sq m Abnormal >60 The [facility] Comment on above: Order Comment: No: D o not add to previous draw Performed By: #### 0 0071 #### [facility] [address] [place] [address], [place] GFR/1.73 sq M predicted among non-blacks MDRD vol rate/area (S/P/Bld) 36 ml/min/1.73sq m Abnormal >60 The [facility] Comment on above: Order Comment: No: D o not add to previous draw Performed By: #### 0 0071 #### [facility] [address] [place] [address], [facility] Glucose mass conc 86 mg/dL Normal 70-100 The [facility] Comment on above: Order Comment: No: D o not add to previous draw Performed By: #### 0 0071 #### [facility] [address] [place] [address], [facility] Potassium molar conc 4.2 mmol/L Normal 3.5-5.1 The [facility] Comment on above: Order Comment: No: D o not add to previous draw Performed By: #### 0 0071 #### [facility] [address] [place] [address], [facility] Sodium molar conc 138 mmol/L Normal 136-145 The [facility] Comment on above: Order Comment: No: D o not add to previous draw Performed By: #### 0 0071 #### [facility] [address] [place] [address], [facility] Urea nitrogen mass conc 19 mg/dL Normal 7-25 The [facility] Comment on above: Order Comment: No: D o not add to previous draw Performed By: #### 0 0071 #### [facility] [address] [place], [place] [address] CBC COMPLETE BLOOD COUNTon 0 - Erythrocyte distribution width Ratio (RBC) 13.0 % Normal 11.5-15.0 The [facility] Comment on above: Order Comment: No: D o not add to previous draw Performed By: #### 5 [id number] #### [facility] [address] [place] [address], [facility] Hematocrit Volume Fraction (Bld) 38.3 % Normal 36.0-45.0 The [facility] Comment on above: Order Comment: No: D o not add to previous draw Performed By: #### 5 0608 #### [facility] [address] Hemoglobin mass conc (Bld) 12.6 g/dL Normal 12.0-15.0 [facility] Comment on above: Order Comment: No: D o not add to previous draw Performed By: #### 5 0608 #### [facility] [address] MCH Entitic mass (RBC) 31.1 pg Normal 27.0-33.0 [facility] Comment on above: Order Comment: No: D o not add to previous draw Performed By: #### 5 0608 #### [facility] [address] MCHC mass conc (RBC) 32.9 g/dL Normal 32.0-35.0 [facility] Comment on above: Order Comment: No: D o not add to previous draw Performed By: #### 5 0608 #### [facility] [address] MCV Entitic volume (RBC) 94.6 fL Normal 82.0-98.0 [facility] Comment on above: Order Comment: No: D o not add to previous draw Performed By: #### 5 0608 #### [facility] [address] Nucleated RBC/100 WBC Ratio (Bld) 0 % Normal 0-0 [facility] Comment on above: Order Comment: No: D o not add to previous draw Performed By: #### 5 0608 #### [facility] [address] [place] [address], [facility] PLAT CNT 266 10*3/uL Normal 150-400 The [facility] Comment on above: Order Comment: No: D o not add to previous draw Performed By: #### 5 0608 #### [facility] [address] RBC #/vol (Bld) 4.05 10*6/uL Normal 3.80-5.00 The [facility] Comment on above: Order Comment: No: D o not add to previous draw Performed By: #### 5 0608 #### [facility] [address] WBC #/vol (Bld) 9.01 10*3/uL Normal 4.00-10.60 The [facility] Comment on above: Order Comment: No: D o not add to previous draw Performed By: #### 5 0608 #### [facility] [address] [facility] [address] PROTHROMBIN TIMEon 9 INR Coag RelTime (PPP) 1.07 {INR} Normal 0.91-1.16 The [facility] Comment on above: Order Comment: No: D [...] 5 6101 #### [facility] [address] [facility]. [address] Prothrombin time (PT) Coag time (PPP) 13.9 s Normal 12.3-14.8 The [facility] Comment on above: Order Comment: No: D o not add to previous draw Result Comment: ALL RESULTS MUST BE INTERPRETED WITH RESPECT TO BLOOD DRAWING ARTIFACT OR DILUTION ERROR OF ANTICOAGULANT AT THE TIME OF SAMPLING. Performed By: #### 5 6101 #### [facility] [address] Vital Signs Date Time Vital Sign Value Performing Clinician Faci lity 08-11-2024 14:21-0500 Body mass index (BMI) [Ratio] 23.52 kg/m2 Christopher [employer] DO Work Phone: [facility] 08-11-2024 14:21-0500 Body weight 60.24 kg Christopher [employer] DO Work Phone: [facility] 08-11-2024 14:21-0500 Diastolic blood pressure 82 mm[Hg] Christopher Shama DO Work Phone: [facility] 08-11-2024 14:21-0500 Heart rate 79 /min Christopher Shama DO Work Phone: [facility] 08-11-2024 14:21-0500 SaO2% (BldA) [Mass fraction] 97 % Christopher Shama DO Work Phone: [facility] 08-11-2024 14:21-0500 Systolic blood pressure 130 mm[Hg] Christopher Shama DO Work Phone: [facility] 07-14-2024 13:28-0500 Body mass index (BMI) [Ratio] 23.52 kg/m2 Christopher Shama DO Work Phone: [facility] 07-14-2024 13:28-0500 Body weight 60.24 kg Christopher Shama DO Work Phone: [facility] 07-14-2024 13:28-0500 Diastolic blood pressure 101 mm[Hg] Christopher Shama DO Work Phone: [facility] 07-14-2024 13:28-0500 Heart rate 87 /min Christopher Shama DO Work Phone: [facility] 07-14-2024 13:28-0500 SaO2% (BldA) [Mass fraction] 91 % Christopher Shama DO Work Phone: [facility] 07-14-2024 13:28-0500 Systolic blood pressure 155 mm[Hg] Christopher Shama DO Work Phone: [facility] 03-26-2024 11:35-0400 Diastolic blood pressure 106 mm[Hg] MD Krzysztof Harp Work Phone: [facility] 03-26-2024 11:35-0400 Heart rate 76 /min MD Krzysztof Harp Work Phone: [facility] 03-26-2024 11:35-0400 Respiratory rate 18 /min MD Krzysztof Harp Work Phone: [facility] 03-26-2024 11:35-0400 SaO2% (BldA) [Mass fraction] 96 % MD Krzysztof Harp Work Phone: [facility] 03-26-2024 11:35-0400 Systolic blood pressure 152 mm[Hg] MD Krzysztof Harp Work Phone: [facility] 03-26-2024 10:24-0400 Body height 157.48 cm MD Krzysztof Harp Work Phone: [facility] 03-26-2024 10:24-0400 Body weight 62.14 kg MD Krzysztof Harp Work Phone: [facility] 02-19-2024 09:07-0400 Body height 157.48 cm MD Krzysztof Harp Work Phone: [facility] 02-19-2024 09:07-0400 Body mass index (BMI) [Ratio] 24.7 kg/m2 MD Krzysztof Harp Work Phone: [facility] 02-19-2024 09:07-0400 Body weight 61.23 kg MD Krzysztof Harp Work Phone: [facility] 02-19-2024 09:07-0400 Diastolic blood pressure 105 mm[Hg] MD Krzysztof Harp Work Phone: [facility] 02-19-2024 09:07-0400 Heart rate 60 /min MD Krzysztof Harp Work Phone: [facility] 02-19-2024 09:07-0400 Systolic blood pressure 146 mm[Hg] MD Krzysztof Harp Work Phone: [facility] 02-05-2024 13:37-0400 Diastolic blood pressure 47 mm[Hg] MD Krzysztof Harp Work Phone: [facility] 02-05-2024 13:37-0400 Heart rate 78 /min MD Krzysztof Harp Work Phone: [facility] 02-05-2024 13:37-0400 Respiratory rate 16 /min MD Krzysztof Harp Work Phone: [facility] 02-05-2024 13:37-0400 SaO2% (BldA) [Mass fraction] 97 % MD Krzysztof Harp Work Phone: [facility] 02-05-2024 13:37-0400 Systolic blood pressure 122 mm[Hg] MD Krzysztof Harp Work Phone: [facility] 02-05-2024 11:35-0400 Body height 157.48 cm MD Krzysztof Harp Work Phone: [facility] 02-05-2024 11:35-0400 Body temperature 99.1 [degF] MD Krzysztof Harp Work Phone: [facility] 02-05-2024 11:35-0400 Body weight 62.14 kg MD Krzysztof Harp Work Phone: [facility] Encounters Encounter Date Encounter Type Care Provider Facility Start: 08-11-2024 End: 08-11-2024 ambulatory RAVEN SESAY Not Available Start: 08-11-2024 End: 08-11-2024 Office outpatient visit 25 minutes Raven Sesay DO Work Phone: [facility] [employer] Comment on above: Left hand pain (Prim pérez Dx); Primary osteoarthritis of hand, unspecified laterality Start: 07-28-2024 End: 07-28-2024 [facility] Start: 07-22-2024 End: 07-22-2024 ambulatory KRZYSZTOF Marmolejo [facility] Start: 07-17-2024 End: 07-17-2024 Bamboo flowsheet Raven Sesay DO Work Phone: [facility] [employer] Start: 07-17-2024 End: 07-17-2024 Bamboo flowsheet Raven Sesay DO Work Phone: [facility] [employer] Start: 07-17-2024 End: 07-17-2024 Patient encounter procedure [facility] DO [facility] Comment on above: Cervical radiculopat hy (Primary Dx); Paresthesia Start: 07-17-2024 End: 07-17-2024 ambulatory RAVEN SESAY Not Available Start: 07-16-2024 End: 07-16-2024 ambulatory [facility] Start: 07-15-2024 End: 07-15-2024 ambulatory CLEVE SHETH Not Available Start: 07-15-2024 End: 07-15-2024 Office outpatient visit 10 minutes Cleve Sheth DO Work Phone: [facility] Comment on above: Chronic right hip pa in (Primary Dx); Sacral insufficiency fracture with routine healing, subsequent encounter; Closed fracture of multiple pubic rami, right, initial encounter ([facility]) Start: 07-14-2024 End: 07-14-2024 Bamboo flowsheet Raven Sesay DO [facility] Start: 07-14-2024 End: 07-14-2024 Bamboo flowsheet Raven Sesay DO Work Phone: [facility] Start: 07-14-2024 End: 07-14-2024 Office outpatient new 30 minutes Raven Shama DO Work Phone: [facility] Comment on above: Paresthesia (Primary Dx) Start: 07-14-2024 End: 07-14-2024 ambulatory RAVEN SESAY Not Available Start: 06-17-2024 End: 06-17-2024 Bamboo flowsheet Cleve Sheth DO Work Phone: [facility] Start: 06-17-2024 End: 06-17-2024 Bamboo flowsheet Cleve Sheth DO Work Phone: [facility] Start: 06-17-2024 End: 06-17-2024 Office outpatient visit 25 minutes Cleve Sheth DO Work Phone: [facility] Comment on above: Chronic right hip pa in (Primary Dx); Sacral insufficiency fracture, initial encounter ([facility]); Closed fracture of multiple pubic rami, right, initial encounter ([facility]) Start: 06-17-2024 End: 06-17-2024 ambulatory CLEVE SHETH Not Available Start: 06-13-2024 End: 06-13-2024 Emergency department patient visit KRZYSZTOF HARP [facility] Start: 06-12-2024 End: 06-12-2024 ambulatory CLEVE [...] in bones. ) Start: 06-05-2024 End: 06-05-2024 Office outpatient visit 15 minutes Cleve Sheth DO Work Phone: [facility] Comment on above: Chronic right hip pa in (Primary Dx) Start: 06-05-2024 End: 06-05-2024 ambulatory CLEVE SHETH Not Available Start: 2024 End: 2024 ambulatory CLEVE SHETH Not Available Start: 04-01-2024 End: 04-01-2024 ambulatory CLEVE SHETH Not Available Start: 03-26-2024 Non-patient / Non-visit MD Carrie Harp Work Phone: [facility] Work Phone: Start: 03-26-2024 End: 03-26-2024 Admission to same day surgery center MD Krzysztof Harp Work Phone: [facility] Work Phone: Start: 03-26-2024 End: 03-26-2024 ambulatory MD Krzysztof Harp Work Phone: [facility] Work Phone: Start: 02-19-2024 End: 02-19-2024 ambulatory MD Krzysztof Harp Work Phone: [facility] Work Phone: Start: 02-19-2024 End: 02-19-2024 Patient encounter procedure MD Krzysztof Harp Work Phone: [facility] Work Phone: Start: 02-05-2024 Non-patient / Non-visit MD Carrie Harp Work Phone: [facility] Work Phone: Start: 02-05-2024 End: 02-05-2024 Admission to same day surgery center MD Krzysztof Harp Work Phone: [facility] Work Phone: Start: 02-05-2024 End: 02-05-2024 ambulatory MD Krzysztof Harp Work Phone: [facility] Work Phone: Start: 01-16-2024 Non-patient / Non-visit MD Carrie Harp Work Phone: [facility] Work Phone: Start: 01-09-2024 End: 01-09-2024 ambulatory DARSHAN HERNANDEZ Not Available Start: 01-07-2024 ambulatory KRZYSZTOF HRAP [facility] Start: 01-16-2023 ambulatory JN GARCIA . Facility :[facility]1 Start: 01-15-2023 End: 01-15-2023 ambulatory APRIL CASTANEDA . Facility:[facility] Start: 01-10-2023 End: 01-11-[address] KRZYSZTOF HARP . Facility:[facility] Start: 12-15-2022 End: 12-15-2022 ambulatory APRIL CASTANEDA . Facility:[facility] Start: 12-15-2022 [facility] Start: 12-05-2022 End: 12-06-2022 ambulatory [...] End: 07-26-[address] KRZYSZTOF HARP . Facility: Start: 05-26-2022 End: 05-27-[address] KRZYSZTOF HARP . Facility:[facility] Start: 05-25-2022 End: 05-26-[address] KRZYSZTOF HARP . Facility: Start: 05-24-2022 End: 05-25-[address] KRZYSZTOF HARP . Facility: Start: 05-11-2022 End: 05-12-[address] KRZYSZTOF HARP . Facility: Start: 02-14-2022 End: 02-15-[address] KRZYSZTOF HARP . Facility: Start: 11-19-2018 End: 11-20-2018 Patient encounter procedure PROVIDER UNKNOWN Facility:[facility] Start: 11-13-2018 End: 11-14-2018 Patient encounter procedure DEFAULT PHYSICIAN Facility:[facility] Start: 10-31-2018 End: 11-01-2018 Patient encounter procedure DEFAULT PHYSICIAN Facility:[facility] Start: 09-23-2018 End: 09-24-2018 Patient encounter procedure DEFAULT PHYSICIAN Facility:[facility] Start: 09-05-2018 End: 09-06-2018 Patient encounter procedure DEFAULT PHYSICIAN Facility:[facility] Procedures Date Procedure Procedure Detail Performing Clinician Start: 07-17-2024 End: 07-17-2024 Needle emg ea extremty w/paraspinl area complete Raven Sesay DO Work Phone: Start: 06-05-2024 Radex hip unilateral with pelvis 2-3 views Cleve Sheth DO Work Phone: Start: 03-26-2024 Screening colonoscopy MD Krzysztof Harp Work Phone: Start: 02-05-2024 Esophagogastroduodenoscopy MD Krzysztof oconnor Work Phone: Plan of Treatment Date Care Activity Detail Author Start: 08-11-2024 End: 08-11-2024 Patient encounter procedure 08/11/2024 2:15 PM EST Office Visit [facility] [address] [place] [id number] Raven Sesay DO [address] [place] [address] [facility] Start: 07-17-2024 End: 07-17-2024 [facility] Comment on above: Arrived Start: 07-15-2024 End: 07-15-2024 Patient encounter procedure [facility] Start: 07-14-2024 End: 07-14-2025 EMG 1 Extremeity EMG 1 Extremeity Neurology Routine Paresthesia Expected: 07/14/2024, Expires: 07/14/2025 [facility] Work Phone: Comment on above: Expected: 07/14/2024 , Expires: 07/14/2025 Start: 07-14-2024 End: 07-14-2024 [facility] Comment on above: Brachial plexopathy; Ulnar neuropathy of left upper extremity Start: 06-17-2024 End: 06-17-2024 Patient encounter procedure 06/17/2024 1:30 PM EDT Office Visit [facility] [address] [email or web address] [address] [place] [address] Cleve Sheth DO [address] [facility] [address] [place] [address] Chronic right hip pain (Primary Dx); Sacral insufficiency fracture, initial encounter (CMS/HCC); Closed fracture of multiple pubic rami, right, initial encounter (CMS/HCC) [facility] Comment on above: Chronic right hip pa in (Primary Dx); Sacral insufficiency fracture, initial encounter (CMS/HCC); Closed fracture of multiple pubic rami, right, initial encounter (CMS/HCC) Start: 06-16-2024 End: 06-16-2024 Patient encounter procedure 06/16/2024 12:30 PM EDT Office Visit [facility] [address] [place] [address] Raven Sesay DO [address] [place] [address] [facility] [address] Start: 05-11-2024 Influenza vaccination Influenza Vacc ine (#1) [facility] Start: 03-26-2024 [facility] Start: 02-05-2024 [facility] Patient Education [facility] Work Phone: Immunizations Immunization Date Immunization Notes Care Provider Kimberly flaviopaolo 06-19-2024 influenza virus vacc ine, unspecified formulation Raven Sesay DO Work Phone: [facility] 06-05-2023 Influenza, Seasonal, Quadrivalent, Adjuvanted Cleve Sheth DO Work Phone: [facility] 06-05-2023 influenza virus vacc ine, unspecified formulation Cleve Davisonston DO Work Phone: [facility] 06-12-2022 influenza, high dose seasonal, preservative-free Cleve Sheth DO Work Phone: [facility] 05-30-2022 Influenza, High-dose Seasonal, Quadrivalent, Preservative Free Cleve Sheth DO Work Phone: [facility] 06-15-2021 Influenza, High-dose Seasonal, Quadrivalent, Preservative Free Cleve Meryl DO Work Phone: [facility] 01-10-2021 SARS-CoV-2, Unspecified Amando s Meryl DO Work Phone: [facility] 06-18-2018 influenza, high dose seasonal, preservative-free Cleve Sheth DO Work Phone: [facility] 05-22-2017 influenza, injectabl e, quadrivalent, preservative free Cleve Sheth DO Work Phone: [facility] 06-14-2016 influenza, high dose seasonal, preservative-free Cleve Sheth DO Work Phone: [facility] 06-03-2015 influenza, high dose seasonal, preservative-free Cleve Sheth DO Work Phone: [facility] 09-10-2014 pneumococcal conjuga te vaccine, 13 valent Cleve Sheth DO Work Phone: [facility] 06-10-2014 influenza, seasonal, injectable Cleve Sheth DO Work Phone: [facility] 08-11-2013 zoster vaccine, live Cleve ponce DO Work Phone: [facility] 07-14-2013 pneumococcal polysaccharide vaccine, 23 valent Cleve Sheth DO Work Phone: [facility] 06-30-2013 seasonal influenza, intradermal, preservative free Cleve Sheth DO Work Phone: [facility] Healthcare Payers Date Payer Category Payer Self-pay 2021 Medicare ANTHEM MEDICARE ADVANTAGE ANTHEM MEDICARE ADVANTAGE [id number] 2021-Present [address] [place] [id number] 2021 Medicare (Managed Care) [facility] ADVANTAGE Member Subscriber Plan / Payer (Effective 2021-Present) Name: Bryanrochelle Sheila A Relation to Subscriber: Self Name: Sheila Mac Payer ID: Not on file Group ID: [id number] Type: Not on file Address: [address] [place] [id number] 2015 Medicare [id number] 1959 Unknown [id number] 1948 Unknown [id number] 2..840.1.516258.3.579. 2.647 1948 Unknown [id number] 2..840.1.079632.3.579. 2.647 1948 Unknown [id number] ..840.1.154043.3.579. 2.647 1948 Unknown [id number] 2.16.840.1.274088.3.579. 2.647 1948 Unknown [id number] 2.16.840.1.675959.3.579. 2.647 1948 Unknown [id number] 2.16.840.1.684179.3.579. 2.593 1948 Unknown [id number] 2.16.840.1.665787.3.579. 2.593 1948 Unknown [id number] 2.16.840.1.062411.3.579. 2.593 1948 Unknown [id number] 2.16.840.1.141417.3.579. 2.59 1948 Unknown [id number] 2.16.840.1.827254.3.579. 2.59 1948 Unknown [id number] 2.16.840.1.011761.3.579. 2.593 1948 Unknown [id number] 2.16.840.1.065572.3.579. 2.59 1948 Unknown [id number] 2.16.840.1.161920.3.579. 2.593 1948 Unknown [id number] 2.16.840.1.307691.3.579. 2.593 1948 Unknown [id number] 2.16.840.1.172300.3.579. 2.593 1948 Unknown [id number] 2.16.840.1.411082.3.579. 2.593 1948 Unknown [id number] 2.16.840.1.080904.3.579. 2.593 1948 Unknown [id number] 2.16.840.1.533495.3.579. 2.593 1948 Unknown [id number] 2.16.840.1.990452.3.579. 2.593 1948 Unknown [id number] 2.16.840.1.494406.3.579. 2.593 1948 Unknown [id number] 2.16.840.1.417995.3.579. 2.593 1948 Unknown [id number] 2.16840.1.242970.3.579. 2.593 1948 Unknown [id number] 2.16840.1.993190.3.579. 2.593 1948 Unknown [id number] 2.16840.1.970201.3.579. 2.593 1948 Unknown [id number] 2.840.1.437008.3.579. 2.1285 1948 Unknown [id number] 2.840.1.418435.3.579. 2.1285 1948 Unknown [id number] 2.840.1.204181.3.579. 2.1285 1948 Unknown [id number] 2.840.1.824738.3.579. 2.1285 1948 Unknown [id number] 2.840.1.367328.3.579. 2.128 1948 Unknown [id number] 2.840.1.361396.3.579. 2.128 1948 Unknown [id number] 2.16840.1.121880.3.579. 2.128 1948 Unknown [id number] 2.16840.1.176072.3.579. 2.1259 1948 Unknown [id number] 2.16.840.1.152519.3.579. 2.1259 1948 Unknown [id number] 2.16840.1.157121.3.579. 2.1258 1948 Unknown [id number] 2.16.840.1.574406.3.579. 2.1258 1948 Unknown [id number] 2.16.840.1.724334.3.579. 2.1258 1948 Unknown [id number] 2.16.840.1.478310.3.579. 2.1258 1948 Unknown [id number] 2.16.840.1.289718.3.579. 2.1258 1948 Unknown [id number] 2.16.840.1.000374.3.579. 2.1258 1948 Unknown [id number] 2.16.840.1.114777.3.579. 2.1258 1948 Unknown [id number] 2.16840.1.392079.3.579. 2.1258 1948 Unknown [id number] 2.16.840.1.206089.3.579. 2.1259 Medicare [id number] Unknown Unknown [id number] 2.16840.1.053761.3.579. 2.531 Unknown [id number] 2.16840.1.673520.3.579. 2.531 Social History Date Type Detail Facility Start: 05-04-2023 End: 02-05-2024 Tobacco smoking status MTIS Never smoked tobacco (finding) [facility] Start: 1950 Sex Assigned At Female [facility] Start: 01-09-2024 End: 07-14-2024 Alcoholic beverage intake Lifetime non-drinker (finding) [facility] Start: 01-09-2024 End: 07-14-2024 History of Social function [facility] Start: 01-09-2024 End: 07-14-2024 Tobacco use panel [facility] Start: 1950 Sex assigned at Not on file [facility] Goals Date Patient Goal Desired Activity /State Clinical Notes 02-14-2022 to 08-11-2024 Raven Sesay DO - 08/11/2024 2:15 PM Arlette Palmer, ARRT - 07/17/2024 9:00 AM Vishnu Sheth, DO - 07/15/2024 10:30 AM Javier Sesay, DO - 07/14/2024 1:30 PM EST Note Date & Type Note Facility 08-11-2024 History of Presen t illness Narrative Images from the original note were not included. Chief complaint: Left hand numbness Subjective Sheila Mac, 74 y.o., female Patient presents today for a follow up for paresthesia. She is here with her . Patient had an EMG completed for review. Patient states things have been about the same since last visit. She is still having the numbness and tingling and at times pain that goes up her left arm. She states she did have some swelling in her left hand so her PCP ordered an ultrasound to look for clots. She states this was normal. She denies any new concerns at this time. Review of Systems Constitutional: Negative for appetite [...] Medical History: Diagnosis Date Diabetes ([facility]) Diverticulitis Gastric ulcer GERD (gastroesophageal reflux disease) HTN (hypertension) ([facility]) Osteoporosis ([facility]) Pancreatitis Rheumatic fever Past Surgical History: Procedure Laterality Date APPENDECTOMY BACK SURGERY 1991 HEART CATH MAMMOGRAPHY 2013 HYSTERECTOMY Diabetes LUMBAR SPINE SURGERY NECK SURGERY OTHER SURGICAL HISTORY Sigmoid Diverticulosis OTHER SURGICAL HISTORY 2017 perforated ulcer [place] [facility] KNE SURG W/MENISCECTOMY MED/LAT W/SHVG Right 2017 DR GONZALEZ medial/lateral menisectomy, synovectomy, abraison chondroplasty TUBAL LIGATION Family History Problem Relation Name Age of Onset Heart disease Mother Cancer Father Social History Tobacco Use Smoking status: Never Smokeless tobacco: Not on file Substance Use Topics Alcohol use: Never Allergies: Iodinated contrast media, Morphine, Penicillins, and Nsaids Vitals: 08/11/24 1421 BP: 130/82 Pulse: 79 SpO2: 97% Body mass index is 23.52 kg/m . [...] , wrist extensors , wrist flexor , molder trimmer strength 5/5. LUE Strength deltoid , biceps , triceps , wrist extensors , wrist flexor , molder trimmer strength 5/5. RLE Strength illopsoas, quadriceps, tibialis [...] reflex 0 . Metzger's sign negative. Coordination: Mtsfsc-sn-gbio testing and rapid alternating movements are normal Gait: Patient ambulates with a walker Review and summary of old records: EMG of the left upper extremity on 07/17/2024: A remote C8 radiculopathy on the left which is kbpk-ik-vogamygn. No evidence of plexopathy or mononeuropathy. Venous Ultrasound of the left upper extremity [...] wearing a glove on her left hand. EMG identified a C8 radiculopathy without evidence of mononeuropathy. Plan: Start Gabapentin 100 mg p.o. b.I.d.. Side effects discussed. Increase fall risk assess which could lead to intracranial hemorrhage. Patient understands this and wishes to proceed. We also discussed pain management referral for which the patient wishes to hold off for now. Osteoarthritis I do believe the patient has widespread osteoarthritis and she has noted some left hand swelling and notices when she uses her hands a lot to peel and shop vegetables that that gives her pain. She has arthritis visibly when I examined her joints and this makes sense given her radicular process as mentioned above. We did discuss the idea of nonsteroidal anti-inflammatory medications. However, the patient has a history of bleeding ulcers and as such we will avoid these medications. The patient's was present for the visit today and has provided additional information. Pt has been fully educated on their diagnosis, treatment options, follow up plan, and return instructions documented in this encounter [facility] 07-17-2024 History of Presen t illness Narrative Images from the original note were not included. Reason for Appointment: EMG Patient: Sheila Mac : 1950 EMG Computer: [employer] Referring Physician: Dr. Raven Sesay EMG: CINTHYA manager car: Jarrett Palmer RT(R) Office Location: [place] Reason for EMG: c/o numbness/tingling in left [...] of the test. documented in this encounter [facility] 07-15-2024 History of Presen t illness Narrative Images from the original note were not included. HISTORY OF PRESENT ILLNESS: Sheila Mac is an 74 y.o. @ female. Chief complaint RT hip pain RT hip: using calcitonin NS Pt went to [facility] ER 06/13, X-rays done pelvis and lumbar. RX for lidoderm patches given, she states she could hardly walk. RT hip pain x 3-4 months, worsened on 05/31 after going to the grocery store. Denies injury. She had injections at [facility] in April without relief. She saw Dr Harp 06/02 and 06/04, given IM injections-no relief. She is walking better, using rollator. Mild ache in the thigh. Using pain spray daily Saw Dr Harp 06/02 and 06/04. XR done at [facility] 06/02/24. Using hot icy hot. Given IM torodol, Tramadol RX and PT ordered, [facility] 06/05/24, [facility] 06/12/24, [facility] 06/13/24, lidoderm patches, calcitonin NS MEDICATION: [...] IMAGING: June 05, 2024 x-rays from the [facility] AP pelvis and lateral of the right hip demonstrate an intact hip joint space. There are no fractures detected. The bone has an osteopenic appearance. The joint spaces are symmetric. There is no obvious effusion or soft tissue swelling. Impression: No acute findings on x-rays of the right hip Hemal Sheth D.O. MRI of the right hip from the [facility] center. There is a sacral insufficiency fracture [...] pubic rami, right, initial encounter ([facility]) S32.591A calcitonin, salmon, (Miacalcin) 200 UNIT/ACT nasal [...] Sheth/ashley Sheth D.O. documented in this encounter [facility] 07-14-2024 History of Presen t illness Narrative [...] headaches. Past Medical History: Diagnosis Date Diabetes (CMS/HCC) Diverticulitis Gastric ulcer GERD (gastroesophageal reflux disease) HTN (hypertension) (CMS/HCC) Osteoporosis (CMS/HCC) Pancreatitis Rheumatic fever Past Surgical History: Procedure Laterality Date APPENDECTOMY BACK SURGERY 1991 HEART CATH MAMMOGRAPHY 2012 HYSTERECTOMY Diabetes LUMBAR SPINE SURGERY NECK SURGERY OTHER SURGICAL HISTORY Sigmoid Diverticulosis OTHER SURGICAL HISTORY 2017 perforated ulcer [place] [facility] KNE SURG W/MENISCECTOMY MED/LAT W/SHVG Right [...] , wrist extensors , wrist flexor , molder trimmer strength 5/5. LUE Strength deltoid , biceps , triceps , wrist extensors , wrist flexor , molder trimmer strength 5/5. RLE Strength illopsoas, quadriceps, tibialis [...] reflex 0 . Metzger's sign negative. Coordination: Odcmpy-yq-ovwc testing and rapid alternating movements are normal [...] and return instructions documented in this encounter [facility] 06-17-2024 History of Presen t illness Narrative Images from the original note were not included. HISTORY OF PRESENT ILLNESS: Sheila Mac is an 74 y.o. @ female. Chief complaint RT hip pain RT hip: here for MRI results [facility] 06/12/24 Pt went to [facility] ER 06/13, X-rays done pelvis and lumbar. RX for lidoderm patches given, she states she could hardly walk. RT hip pain x 2-3 months, worsened on 05/31 after going to the grocery store. Denies injury. She had injections at [facility] in April without relief. She saw [...] Harp 06/02 and 06/04. XR done at [facility] 06/02/24. Using hot icy hot. Given IM torodol, Tramadol RX and PT ordered, XR [facility] 06/05/24, MRI [facility] 06/12/24, [facility] 06/13/24, lidoderm patches I reviewed notes from [facility] emergency department dated June 13, 2024. Patient [...] Medical History: Diagnosis Date Diabetes ([facility]) Diverticulitis Gastric ulcer GERD (gastroesophageal reflux disease) HTN (hypertension) ([facility]) Osteoporosis ([facility]) Pancreatitis Rheumatic fever ALLERGIES: Allergies Allergen Reactions [...] IMAGING: June 05, 2024 x-rays from the [facility] AP pelvis and lateral of the right hip demonstrate an intact hip joint space. There are no fractures detected. The bone has an osteopenic appearance. The joint spaces are symmetric. There is no obvious effusion or soft tissue swelling. Impression: No acute findings on x-rays of the right hip Hemal Sheth D.O. I reviewed an MRI of the right hip from the [facility]. There is a sacral insufficiency [...] Sacral insufficiency fracture, initial encounter ([facility]) M84.48XA 3. Closed fracture of multiple pubic rami, right, initial encounter ([facility]) S32.591A calcitonin, salmon, (Miacalcin) 200 UNIT/ACT nasal [...] Sheth/ashley Sheth D.O. documented in this encounter [facility] 06-05-2024 History of Presen t illness Narrative Images from the original note were not included. HISTORY OF PRESENT ILLNESS: Sheila Mac is an 74 y.o. @ female. Chief complaint RT hip pain New problem: RT hip pain. Dr Harp referral. XR [facility] 06/03/24 RT hip pain x 2-3 months, worsened on 05/31 after going to the grocery store. Denies injury. She had injections at [facility] in April without relief. She saw Dr Harp 06/02 and 06/04, given IM injections-no relief. She is having difficulty walking, using a walker. Pain with WB. Pain in the buttock, hamstring and inner thigh. Pain can be aching and sharp. Difficulty with sit to stand. Pain 1/10 at rest, goes to 10+/10 with WB. 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 Taking TYL, using icy hot. Saw Dr Harp 06/02 and 06/04. XR done at [facility] 06/02/24. Using hot icy hot. Given IM torodol, Tramadol RX and PT ordered I reviewed notes from the patient's primary care provider Dr. Harp dated June 04, 2024. The patient was complaining of right hip pain and was requesting an injection. On examination the patient was noted to have right hip pain with poor internal rotation. The patient was started on tramadol and was given an injection of ketorolac. MEDICATION: Current Outpatient Medications on File Prior [...] Visit Vitals Smoking Status Never PHYSICAL EXAM: The patient appears to be in pain in his constantly clutching at her right hip area. Ortho Exam RT HIP severe antalgic gait. Has great difficulty with transfers. Leans heavily on a Rollator. Her pain is localized to the proximal thigh anterior groin and lateral right hip. She has painful range of motion of the right hip. She can not stand erect. She can not fully extend the hip. She has 3/5 abduction strength of the right hip. Pain with axial loading of the RT thigh, no pain with hip rotation and 20 IR and 30 ER. IMAGING: XR hip right 2 or 3 views Imaging Result: June 05, 2024 x-rays AP pelvis and lateral of the right hip demonstrate an intact hip joint space. There are no fractures detected. The bone has an osteopenic appearance. The joint spaces are symmetric. There is no obvious effusion or soft tissue swelling. Impression: No acute findings on x-rays of the right hip Hemal Sheth D.O. There is an x-ray report of the right hip from the [facility] dated May of 2024 slight narrowing of the right hip joint space was noted bilaterally. No fractures were reported. ASSESSMENT: ICD-10-CM 1. Chronic right hip pain M25.551 XR hip right 2 or 3 views G89.29 PLAN: I explained the diagnosis and reviewed treatment options. I answered all of the patient's questions. I recommend a RT HIP MRI, follow up after MRI. Dr. Sheth obtained history and examined the patient, I am acting as scribe for Dr. Sheth/ashley Sheth D.O. documented in this encounter [facility] 06-05-2024 Telephone encounter Note $40.00 copay / Prior auth needed. [facility] 06-05-2024 Miscellaneous Notes $40.00 copay / Prior auth needed. documented in this encounter [facility] 03-26-2024 Procedure note [facility] [...] She will be (more content not included)... [facility] 12-15-2022 Note Review of Systems Cardiovascular: Positive for leg swelling. Respiratory: Positive for shortness of breath. Skin: Positive for color change. Neurological: Positive for headaches. All other systems reviewed and are negative. [facility] 07-25-2022 Note PROCEDURE: MRA NECK WO CON [...] authenticated by: DANIEL MARIE Date: 2022-07-25 13:25 [facility] 05-11-2022 Note PROCEDURE: XR FOOT L [...] by: DANIEL MARIE Date: 2022-05-11 12:51 [facility] 02-14-2022 Note PROCEDURE: XR KNEE L T 4V or > COMPARISON: None. HISTORY: Osteoarthritis FINDINGS: BONES:No fracture, acute abnormality, or significant arthropathy. SOFT TISSUES:Negative. No visible soft tissue swelling. EFFUSION:Moderate suprapatellar joint effusion OTHER: Negative. IMPRESSION: Moderate joint effusion Electronically authenticated by: GODWIN BECK Date: 2022-02-14 17:30 [facility] Evaluation note No assessment inform ation available [facility] Work Phone: Evaluation note Diagnosis Onset Date Duodenal diverticulum acute Hiatal hernia acute IBS (irritable bowel syndrome) acute Screening for colon cancer a cute [facility] Work Phone: Evaluation note* Diagnosis Chronic right hip pain- Primary Sacral insufficiency fracture, initial encounter ([facility] [facility]) Closed fracture of multiple pubic rami, right, initial encounter ([facility]) documented [facility] encounter [facility]* Diagnosis Paresthesia- Primary Disturbance of skin sensation documented in this encounter [facility]* Diagnosis Chronic right hip pain- Primary Sacral insufficiency fracture with routine healing, subsequent encounter Closed fracture of multiple pubic rami, right, initial encounter ([facility]) documented [facility] encounter [facility]* Diagnosis Cervical radiculopathy- Primary Brachial neuritis or radiculitis nos Paresthesia Disturbance of skin sensation documented in this encounter [facility]* Diagnosis Left hand pain- Primary Pain in soft tissues of limb Primary osteoarthritis of hand, unspecified laterality documented in this encounter [facility]* Diagnosis Chronic right hip pain- Primary documented in this encounter [facility] Author Ben Sanchez [facility] February 05, 2024 1:08pm Note Date/Time February 05, 2024 1:08p [facility] ENTER [address] [place] [address] Gastroenterology H&P Signed Patient: Sheila Mac MR#: [id number] : 1950 Acct:[id number] Age/Sex: 73 / F Adm Date: 4 Loc: Room: Type: [facility] Attending Dr: Ben Sanchez MD Copies [...] signed by Ben Sanchez MD> 02/05/24 1308 [facility] Work Phone: History and physical note Author Ben Sanchez [facility] March 26, 2024 10:37am Note Date/Time March 26, 2024 10:3 7am [facility] EN[facility] [address] [place] [address] Gastroenterology H&P Signed Patient: Sheila Mac MR#: [id number] : 1950 Acct:[id number] Age/Sex: 73 / F Adm Date: 4 Loc: Room: Type: [facility] Attending Dr: Ben Sanchez MD Copies [...] 03/26/24 1036 Signed By: <Electronically signed by Bne Sanchez MD> 03/26/24 1037 [facility] Work Phone: [facility] N[facility]ative* Consultation (Routine) - Closed Specialty Diagnoses / Procedures Referred By Contac t Referred To Contact Neurology Diagnoses Brachial plexopathy Ulnar neuropathy of left upper extremity Procedures [place] OFFICE/OUTPATIENT NEW HIGH MDM 60 MINUTES Cleve Sheth DO [address] [facility] [address] [place] [address] Phone: tel: fax: Daniel Patiño MD [address] [place] [address] Phone: tel: fax: Referral ID Status Reason Start Date Expiration Date V isits Requested Visits Authorized [id number] Closed Consult and Treat 2024 10/05/2024 1 1 [facility] Summary Purpose Family History Relationship Condition Age [...] DATE CREATED AUTHOR AUTHOR'S ORGANIZ ATION 12/19/2022 [facility] DATE CREATED AUTHOR AUTHOR'S ORGANIZ ATION 01/18/2023 [facility] DATE CREATED AUTHOR AUTHOR'S ORGANIZ ATION 03/29/2024 [facility] DATE CREATED AUTHOR AUTHOR'S ORGANIZ ATION 07/18/2024 [facility] DATE CREATED AUTHOR AUTHOR'S ORGANIZ ATION 08/04/2024 [facility] DATE CREATED AUTHOR AUTHOR'S ORGANIZ ATION 08/12/[address] [facility] dical Specialists EPIC Care Teams (unrecognized sec [...] Provide r Active Start: March 26, 2024 Recycling Tech Relationship Specialty Start Date End Date Krzysztof Harp MD [address] [place] [address] PCP - General Family Medicine 01/09/24 Recycling Tech Relationship Specialty Start Date End Date Krzysztof Harp MD [address] [place] [facility] [place] [address] PCP - General Family Medicine 01/09/24 Recycling Tech Relationship Specialty Start Date End Date Krzysztof Harp MD [address] [place] [facility] [place] [address] PCP - General Family Medicine 01/09/24 Recycling Tech Relationship Specialty Start Date End Date Krzysztof Harp MD [address] [place] [facility] [place] [address] PCP - General Family Medicine 01/09/24 Recycling Tech Relationship Specialty Start Date End Date Krzysztof Harp MD [address] [place] [address] PCP - General Family Medicine 01/09/24 Raven Sesay DO [address] [address] Referring Physician Neurology 07/14/24 Recycling Tech Relationship Specialty Start Date End Date Krzysztof Harp MD [address] [place] [address] PCP - General Family Medicine 01/09/24 Raven Sesay DO [address] [address] Referring Physician Neurology 07/14/24 Recycling Tech Relationship Specialty Start Date End Date Krzysztof Harp MD [address] [place] [address] PCP - General Family Medicine 01/09/24 Raven Sesay DO [address] [address] Referring Physician Neurology 07/14/24 Recycling Tech Relationship Specialty Start Date End Date Krzysztof Harp MD [address] [place] [address] PCP - General Family Medicine 01/09/24 Raven Sesay DO [address] [address] Referring Physician Neurology 07/14/24 Recycling Tech Relationship Specialty Start Date End Date Krzysztof Harp MD [address] [facility] [place] [phone] PCP - General Family Medicine 01/09/24 Raven Sesay DO [address] [place] [address] Referring Physician Neurology 07/14/24 Reason for Visit [...] BE BASED ON THE PRIMARY CLINICAL RECORDS. [employer] provides no warranty or guarantee of the accuracy or completeness of information in this document.
[2024-10-01 10:42] LABS: Alanine Aminotransferase 14 U/L (14-59); Albumin Globulin Ratio 0.6; Albumin Level 2.8 g/dL (3.4-5.0); Alkaline Phosphatase 147 U/L (46-116); Anion Gap 12.6; Aspartate Amino Transferase 19 U/L (15-37); Bilirubin Total 0.3 mg/dL (0.2-1.0); Calcium 9.2 mg/dL (8.5-10.1); Carbon Dioxide 26.9 mmol/L (21.0-32.0); Chloride 107 mmol/L (98-107); Estimated GFR (African America 22 (>=60 mL/min/1.73m^2); Estimated GFR (Non-African Ame 18 (>=60 mL/min/1.73m^2); Globulin 4.6 g/dL; Glucose 116 mg/dL (74-106); Potassium 4.5 mmol/L (3.5-5.1); Sodium 142 mmol/L (136-145); Total Protein 7.4 g/dL (6.4-8.2)
== END 2024-10-01 09:10 | disposition home or self-care (01) ==
LOC: LAB 09:10
PROVIDERS: PCP Family Medicine; Visit Provider Family Medicine
DX: K86.1 Other chronic pancreatitis (principal); I50.30 Unspecified diastolic (congestive) heart failure
CPT/HCPCS: 36415; 71046; 72110; 80053; 83880; 85025

== ENCOUNTER 2024-10-09 11:34 | Outpatient (OUT) | payer MEDICARE, SELFPAY ==
--- OUTSIDE RECORDS SUMMARY | 2024-10-08 15:25 | XMS_ITS | CCD ---
Author Organization [facility] Care Team Providers Care Inspector Health Care Facilities Name Role Phone PHYSICIAN, DEFAULT Admitting Unavailable [...] Unavailable HOY ., DR BLANKENSHIP Admitting Unavailable RENTON, DR GODWIN Cardona Consulting Unavailable HOY ., [...] Provider MD Krzysztof Harp Primary Care Provider [phone] Ben Sanchez Admitting Unavailable Ben Sanchez Attending Unavailable Marioy, Krzysztof M Primary Care Unavailable Ben Sanchez Admitting Unavailable Ben Sanchez Attending Unavailable Marioy, Krzysztof M Primary Care Unavailable Krzysztof Harp MD Primary Care Provider [phone] Raven Sesay DO Unavailable [phone] KRZYSZTOF HARP Referring Unavailable HOY, KRZYSZTOF M [...] WING Referring Unavailable MERYLCLEVE Attending Unavailable RAVEN SESAY Attending Unavailable CLEVE SHETH Referring Unavailable CLEVE SHETH Attending Unavailable RAVEN SESAY Attending Unavailable RAVEN SESAY Attending Unavailable Allergies Allergy Classification Reported Allergen(s) Allergy Type Date of Onset Reaction(s) Facility (8 sources) Morphine; Translations: [MORPHINE] Drug Allergy 7 Vomiting [facility] (5 sources) NSAIDs; Translations: [NSAIDS (NON-STEROIDAL ANTI-INFLAMMATOR Y DRUG)] Drug allergy (disorder) 9 [facility] (1 source) Penicillin Drug Allergy 9 [facility] (1 source) predniSONE Drug Allergy 9 [facility] (2 sources) Iodinated Contrast- Oral and IV Dye Drug allergy (disorder) 5 [facility] (20 sources) Penicillins; Translations: [PENICILLINS] Propensity to adverse reactions to drug (disorder) 5 Rash [facility] (20 sources) IODINATED CONTRAST MEDIA; Translations: [IODINATED CONTRAST MEDIA] Propensity to adverse reactions to drug (disorder) 3 Anaphylaxis [facility] (1 source) levoFLOXacin Drug Allergy 3 [facility] (1 source) meloxicam Drug Allergy 3 [facility] (4 sources) NSAIDS (Non-Steroidal Anti-Inflamma; Translations: [NSAIDS (Non-Steroidal Anti-Inflamma] Propensity to adverse reactions 4 Stomach Ulcer [facility] (1 source) Morphine Drug Allergy 4 [facility] (15 sources) Morphine Drug Allergy [address] [facility] (8 sources) Non-steroidal anti-inflammator y agent Propensity to adverse reactions [address] 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 [address] [place] [address] Surgical Pathology Consultation Patient Name:SHEILA MAC ADOB:1950 (Age: 74)Gender:FTaken:07/28/2024eported:07/31/2024hysician(s):Onur Latham MD ([phone])Copy To: Rec. #:[id number]: #[id number] Final Pathologic Diagnosis 1. Duodenum biopsy first portion: Duodenal mucosa with no significant histopathologic changes. No active inflammation, celiac disease, parasites, granuloma or atypia. 2. Antrum biopsy: Gastric antral mucosa with no significant histopathologic changes. No intestinal metaplasia or dysplasia. No Helicobacter pylori organisms are seen on routine sections. Report Electronically Signed Out [facility]/07/31/2024Rodriguez Vargas MD Interpretation performed at [facility], [address] [place] [address], License number: [id number]. Clinical History Vomiting, gastroesophageal reflux, dysphagia Gross Description 1. Received in formalin labeled ASLINGER, #1: Duodenum is a single hathaway bit of soft tissue, 0.2 cm in greatest dimension. Filtered and submitted in a single cassette. (1, ns, [id number], m7) MG 2. Received in formalin labeled ASLINGER, #2: Antrum is a single hathaway bit of soft tissue, 0.3 cm in greatest dimension. Filtered and submitted in a single cassette. (1, ns, [id number], m7) MG mjg/07/28/2024GR Specimen(s) Received 1: Duodenum biopsy first portion 2: Antrum biopsy Fee Codes(s): 1; 90069 2; 22164 EMG 1 Extremeityon 4 C8 radiculopathy on the left, moderate [facility] NVC 5-6 Nerveson 07-17-2024 C8 radiculopathy on the left, moderate [facility] XR HIP LT 2-3 VIEWS W OR [...] Muller MD on 06/13/2024 10:24 PM Normal [facility] XR SPINE LUMBAR 2 OR 3 [...] Gonzales MD on 06/13/2024 10:20 PM Normal [facility] MR HIP RIGHT WO IV CONTRASTo [...] of the right hip Hemal Sheth D.O. [facility] Radiology Study observation (narrative) [facility] US AYESHA DOP LEG LTon 01-16-20 US [...] DANIEL MARIE Date: 2023-01-15 08:25 Normal [facility] XR ANKLE LT MIN 3 Von [...] GONZALEZ PATEL Date: 2023-01-15 07:28 Normal [facility] VITAMIN B1 (THIAMINE)on Vit. B1, Whole Blood 118.1 nmol/L Normal 66.5-200.0 [facility] Comment on above: Performed By: #### C BC #### [facility] [address] [place] [address] Dr. Ekta Funk BNPon 01-10-2023 Natriuretic peptide B (Bld) [Mass/Vol] 980.0 pg/mL Critically high <=900.[address] [facility] Comment on above: Performed By: #### C VDTBH #### [facility] [address] [place] [address] Dr. Ekta Funk CBC AUTO DIFFon 01-10-2023 BASO # 0.1 103/ul Normal 0.0-0.[address] [facility] Comment on above: Performed By: #### C MP #### [facility] [address] [place] [address] Dr. Ekta Funk Basophils/100 WBC (Bld) 1.0 % Normal 0.2-2.[address] [facility] Comment on above: Performed By: #### C MP #### [facility] [address] [place] [address] Dr. Ekta Funk EO # 0.4 103/ul Normal 0.0-0.[address] [facility] Comment on above: Performed By: #### C MP #### [facility] [address] [place] [address] Dr. Ekta Funk Eosinophils/100 WBC (Bld) 3.7 % Normal 0.9-7.[address] [facility] Comment on above: Performed By: #### C MP #### [facility] [address] [place] [address] Dr. Ekta Funk Erythrocyte distribution width (RBC) [Ratio] 13.2 % Normal 11.0-15.[address] [facility] Comment on above: Performed By: #### C MP #### [facility] [address] [place] [address] Dr. Ekta Funk Hematocrit (Bld) [Volume fraction] 35.1 % Critically low 36.0-48.[address] [facility] Comment on above: Performed By: #### C MP #### [facility] [address] [place] [address] Dr. Ekta Funk Hemoglobin (Bld) [Mass/Vol] 11.3 g/dL Critically low 12.0-16.[address] [facility] Comment on above: Performed By: #### C MP #### [facility] [address] [place] [address] Dr. Ekta Funk IG # 0.04 10e3/ul Critically high 0.00-0.03 [facility] Comment on above: Performed By: #### C MP #### [facility] [address] [place] [address] Dr. Ekta Funk IG % 0.4 % Normal 0.0-0.[address] [facility] Comment on above: Performed By: #### C MP #### [facility] [address] [place] [address] Dr. Ekta Funk LYMPH # 2.0 103/ul Normal 1.2-3.[address] [facility] Comment on above: Performed By: #### C MP #### [facility] [address] [place] [address] Dr. Ekta Funk Lymphocytes/100 WBC (Bld) 20.8 % Normal 20.5-60.[address] [facility] Comment on above: Performed By: #### C MP #### [facility] [address] [place] [address] Dr. Ekta Funk MANUAL DIFF REQ NO Normal [facility] Comment on above: Performed By: #### C MP #### [facility] [address] [place] [address] Dr. Ekta Funk MCH (RBC) [Entitic mass] 32.3 pg Normal 26.7-34.[address] [facility] Comment on above: Performed By: #### C MP #### [facility] [address] [place] [address] Dr. Ekta Funk MCHC (RBC) [Mass/Vol] 32.2 g/dL Normal 29.9-35.[address] [facility] Comment on above: Performed By: #### C MP #### [facility] [address] [place] [address] Dr. Ekta Funk MCV (RBC) [Entitic vol] 100.3 fL Critically high 81.0-99.[address] [facility] Comment on above: Performed By: #### C MP #### [facility] [address] [place] [address] Dr. Ekta Funk MONO # 0.8 103/ul Normal 0.3-0.[address] [facility] Comment on above: Performed By: #### C MP #### [facility] [address] [place] [address] Dr. Ekta Funk Monocytes/100 WBC (Bld) 7.9 % Normal 1.7-12.[address] [facility] Comment on above: Performed By: #### C MP #### [facility] [address] [place] [address] Dr. Ekta Funk NEUT # 6.4 103/ul Normal 1.4-6.[address] [facility] Comment on above: Performed By: #### C MP #### [facility] [address] [place] [address] Dr. Ekta Funk Neutrophils/100 WBC (Bld) 66.2 % Normal 43.0-75.[address] [facility] Comment on above: Performed By: #### C MP #### [facility] [address] [address] [address] Ekta Funk Platelet mean volume (Bld) [Entitic vol] 9.6 fL Normal 9.5-13.[address] [facility] Comment on above: Performed By: #### C MP #### [facility] [address] [address] [address] Ekta Funk PLT 255 103/ul Normal 150-450 [facility] Comment on above: Performed By: #### C MP #### [facility] [address] [address] [address] Ekta Funk RBC 3.50 106/ul Critically low 4.20-5.40 [facility] Comment on above: Performed By: #### C MP #### [facility] [address] [address] [address] Ekta Funk WBC 9.7 103/ul Normal 4.0-11.[address] [facility] Comment on above: Performed By: #### C MP #### [facility] [address] [address] [address] Ekta Funk CRPon 01-10-2023 CRP [Mass/Vol] mg/L Normal <=1.0 [facility] Comment on above: Performed By: #### C BC #### [facility] [address] [address] [address] Ekta Funk FREE THYROXINE INDEX T7on FTI 2.62 Normal 1.30-4.[address] [facility] Comment on above: Performed By: #### C BC #### [facility] [address] [address] [address] Ekta Funk T3U 32.0 % Normal 30.0-39.[address] [facility] Comment on above: Performed By: #### C BC #### [facility] [address] [address] [address] Ekta Funk T4 [Mass/Vol] 8.20 ug/dL Normal 4.80-13.90 [facility] Comment on above: Performed By: #### C BC #### [facility] [address] [place] [address] Dr. Ekta MOSESon 01-10-2023 Iron [Mass/Vol] 61.0 ug/dL Normal 50.0-170.0 [facility] Comment on above: Performed By: #### B 12FOL, VITAD, IRON #### [facility] [address] [place] [address] Dr. Ekta Funk PROF 14(COMP METB)on 023 Albumin [Mass/Vol] 2.9 g/dL Critically low 3.4-5.0 [facility] Comment on above: Performed By: #### C VDTBH #### [facility] [address] [place] [address] Dr. Ekta Funk Albumin/Globulin [Mass ratio] 0.6 {ratio} Normal [facility] Comment on above: Performed By: #### C VDTBH #### [facility] [address] [place] [address] Dr. Ekta Funk ALP [Catalytic activity/Vol] 101 U/L Normal 46-[address] [facility] Comment on above: Performed By: #### C VDTBH #### [facility] [address] [place] [address] Dr. Ekta Funk ALT [Catalytic activity/Vol] 16 U/L Normal 14-[address] [facility] Comment on above: Performed By: #### C VDTBH #### [facility] [address] [place] [address] Dr. Ekta Funk Anion gap [Moles/Vol] 14.6 mmol/L Normal [facility] Comment on above: Performed By: #### C VDTBH #### [facility] [address] [place] [address] Dr. Ekta Funk AST [Catalytic activity/Vol] 15 U/L Normal 15-[address] [facility] Comment on above: Performed By: #### C VDTBH #### [facility] [address] [place] [address] Dr. Ekta Funk Bilirubin [Mass/Vol] 0.4 mg/dL Normal 0.2-1.[address] [facility] Comment on above: Performed By: #### C VDTBH #### [facility] [address] [place] [address] Dr. Ekta Funk Calcium [Mass/Vol] 9.2 mg/dL Normal 8.5-10.1 [facility] Comment on above: Performed By: #### C VDTBH #### [facility] [address] [place] [address] Dr. Ekta Funk Chloride [Moles/Vol] 107 mmol/L Normal 98-[address] [facility] Comment on above: Performed By: #### C VDTBH #### [facility] [address] [place] [address] Dr. Ekta Funk CO2 [Moles/Vol] 24.4 mmol/L Normal 21.0-32.0 [facility] Comment on above: Performed By: #### C VDTBH #### [facility] [address] [place] [address] Dr. Ekta Funk Creatinine [Mass/Vol] 2.02 mg/dL Critically high 0.55-1.[address] [facility] Comment on above: Performed By: #### C VDTBH #### [facility] [address] [place] [address] Dr. Ekta Funk EGFR-AF CYMRO 29 mL/min/1.73m2 Critically low >=[address] [facility] Comment on above: Performed By: #### C VDTBH #### [facility] [address] [place] [address] Dr. Ekta Funk EGFR-NON AF CYMRO 24 mL/min/1.73m2 Critically low >=[address] [facility] Comment on above: Performed By: #### C VDTBH #### [facility] [address] [place] [address] Dr. Ekta Funk Globulin (S) [Mass/Vol] 4.5 g/dL Normal [facility] Comment on above: Performed By: #### C VDTBH #### [facility] [address] [place] [address] Dr. Ekta Funk Glucose [Mass/Vol] 103 mg/dL Normal 74-106 [facility] Comment on above: Performed By: #### C VDTBH #### [facility] [address] [address] [address] Ekta Funk Potassium [Moles/Vol] 5.0 mmol/L Normal 3.5-5.[address] [facility] Comment on above: Performed By: #### C VDTBH #### [facility] [address] [address] [address] Ekta Funk Protein [Mass/Vol] 7.4 g/dL Normal 6.4-8.2 [facility] Comment on above: Performed By: #### C VDTBH #### [facility] [address] [address] [address] Ekta Funk Sodium [Moles/Vol] 141 mmol/L Normal 136-145 [facility] Comment on above: Performed By: #### C VDTBH #### [facility] [address] [address] [address] Ekta Funk Urea nitrogen [Mass/Vol] 23.0 mg/dL Critically high 7.0-18.[address] [facility] Comment on above: Performed By: #### C VDTBH #### [facility] [address] [address] [address] Ekta Funk Urea nitrogen/Creatinine [Mass ratio] 11.4 mg/mg Normal [facility] Comment on above: Performed By: #### C VDTBH #### [facility] [address] [address] [address] Ekta Funk TSHon 01-10-2023 TSH 1.793 uIU/mL Normal 0.358-3.740 [facility] Comment on above: Performed By: #### C VDTBH #### [facility] [address] [place] [address] Dr. Ekta Funk VIT B12 AND FOLATEon 023 Cobalamin (Vitamin B12) [Mass/Vol] 175.0 pg/mL Critically low 193.0-986.0 [facility] Comment on above: Performed By: #### B 12FOL, VITAD, IRON #### [facility] [address] [address] [address] Ekta Funk FOLATE 10.30 ng/mL Normal 8.60-58.[address] [facility] Comment on above: Performed By: #### B 12FOL, VITAD, IRON #### [facility] [address] [place] [address] Dr. Ekta Funk VITAMIN D 25 OHon 01-10-2023 VIT D 25-OH 24.0 ng/mL Normal [facility] Comment on above: Performed By: #### B 12FOL, VITAD, IRON #### [facility] [address] [place] [address] Dr. Ekta Funk VIT D RANGES SEE BELOW Normal [facility] Comment on above: Result Comment: <20 ng/mL Vit D deficient 20 - <30 ng/mL Vit D insufficient 30 - 100 ng/mL Vit D sufficient >100 ng/mL Potential Toxicity Performed By: #### B 12FOL, VITAD, IRON #### [facility] [address] [place] [address] Dr. Ekta Funk Office Visiton 12-15-2022 Follow-up visit [id number] Sheila Mac 1950 F Date Provider Department Center 12/15/2022 38[facility] No family history on file Level of Service:10365 MS OFFICE/OUTPATIENT ESTABLISHED MOD MDM 30-39 MIN Reason for Visit and Comments: Follow-up [885188] - Is here f/u stress test pt states she had Bruises all over both legs symptoms stated a week ago also stated legs are swollen and burning Normal [facility] NM STRESS/REST MULTIon 12-05 NM STRESS/REST MULTI Patient: SHEILA MCA Exam Date: 12/05/2022 : 1950 Gender:F Ordering : DR KRZYSZTOF HARP . Admission #: [id number] Family : Order #: [id number] CLICK HERE TO VIEW EXAM RADIOLOGY REPORT [...] on 12/06/2022 at 07:[address] [facility] ECHOCARDIO M/2D COMPLETEon 0 11-27-2022 ECHOCARDIO M/2D COMPLETE Patient: SHEILA MAC Exam Date: 11/27/2022 : 1950 Gender:F Ordering : DR KRZYSZTOF HARP . Admission #: [id number] Family : Order #: [id number] CLICK HERE TO VIEW EXAM ECHOCARDIOGRAM REPORT [...] Gaspar M.D. on 11/27/2022 at 14:[address] [facility] CBC AUTO DIFFon 11-26-2022 BASO # 0.0 103/ul Normal 0.0-0.[address] [facility] Comment on above: Performed By: #### I NSULIN #### [facility] [address] [place] [address] Dr. Ekta Funk Basophils/100 WBC (Bld) 0.6 % Normal 0.2-2.[address] [facility] Comment on above: Performed By: #### I NSULIN #### [facility] [address] [place] [address] Dr. Ekta Funk EO # 0.3 103/ul Normal 0.0-0.[address] [facility] Comment on above: Performed By: #### I NSULIN #### [facility] [address] [place] [address] Dr. Ekta Funk Eosinophils/100 WBC (Bld) 4.8 % Normal 0.9-7.[address] [facility] Comment on above: Performed By: #### I NSULIN #### [facility] [address] [place] [address] Dr. Ekta Funk Erythrocyte distribution width (RBC) [Ratio] 13.3 % Normal 11.0-15.[address] [facility] Comment on above: Performed By: #### I NSULIN #### [facility] [address] [place] [address] Dr. Ekta Funk Hematocrit (Bld) [Volume fraction] 29.1 % Critically low 36.0-48.[address] [facility] Comment on above: Performed By: #### I NSULIN #### [facility] [address] [place] [address] Dr. Ekta Funk Hemoglobin (Bld) [Mass/Vol] 9.5 g/dL Critically low 12.0-16.[address] [facility] Comment on above: Performed By: #### I NSULIN #### [facility] [address] [place] [address] Dr. Ekta Funk IG # 0.07 10e3/ul Critically high 0.00-0.03 [facility] Comment on above: Performed By: #### I NSULIN #### [facility] [address] [place] [address] Dr. Ekta Funk IG % 1.0 % Critically high 0.0-0.5 [facility] Comment on above: Performed By: #### I NSULIN #### [facility] [address] [place] [address] Dr. Ekta Funk LYMPH # 1.2 103/ul Normal 1.2-3.[address] [facility] Comment on above: Performed By: #### I NSULIN #### [facility] [address] [place] [address] Dr. Ekta Funk Lymphocytes/100 WBC (Bld) 17.2 % Critically low 20.5-60.[address] [facility] Comment on above: Performed By: #### I NSULIN #### [facility] [address] [place] [address] Dr. Ekta Funk MANUAL DIFF REQ NO Normal [facility] Comment on above: Performed By: #### I NSULIN #### [facility] [address] [place] [address] Dr. Ekta Funk MCH (RBC) [Entitic mass] 31.7 pg Normal 26.7-34.[address] [facility] Comment on above: Performed By: #### I NSULIN #### [facility] [address] [place] [address] Dr. Ekta Funk MCHC (RBC) [Mass/Vol] 32.6 g/dL Normal 29.9-35.[address] [facility] Comment on above: Performed By: #### I NSULIN #### [facility] [address] [place] [address] Dr. Ekta Funk MCV (RBC) [Entitic vol] 97.0 fL Normal 81.0-99.[address] [facility] Comment on above: Performed By: #### I NSULIN #### [facility] [address] [place] [address] Dr. Ekta Funk MONO # 0.8 103/ul Normal 0.3-0.[address] [facility] Comment on above: Performed By: #### I NSULIN #### [facility] [address] [place] [address] Dr. Ekta Funk Monocytes/100 WBC (Bld) 11.1 % Normal 1.7-12.[address] [facility] Comment on above: Performed By: #### I NSULIN #### [facility] [address] [place] [address] Dr. Ekta Funk NEUT # 4.5 103/ul Normal 1.4-6.[address] [facility] Comment on above: Performed By: #### I NSULIN #### [facility] [address] [place] [address] Dr. Ekta Funk Neutrophils/100 WBC (Bld) 65.3 % Normal 43.0-75.0 [facility] Comment on above: Performed By: #### I NSULIN #### [facility] [address] [place] [address] Dr. Ekta Funk Platelet mean volume (Bld) [Entitic vol] 9.4 fL Critically low 9.5-13.[address] [facility] Comment on above: Performed By: #### I NSULIN #### [facility] [address] [place] [address] Dr. Ekta Funk PLT 263 103/ul Normal 150-[address] [facility] Comment on above: Performed By: #### I NSULIN #### [facility] [address] [place] [address] Dr. Ekta Funk RBC 3.00 106/ul Critically low 4.20-5.40 [facility] Comment on above: Performed By: #### I NSULIN #### [facility] [address] [place] [address] Dr. Ekta Funk WBC 6.9 103/ul Normal 4.0-11.[address] [facility] Comment on above: Performed By: #### I NSULIN #### [facility] [address] [place] [address] Dr. Ekta Funk PROF 14(COMP METB)on 023 Albumin [Mass/Vol] 2.2 g/dL Critically low 3.4-5.0 [facility] Comment on above: Performed By: #### C MP #### [facility] [address] [place] [address] Dr. Ekta Funk Albumin/Globulin [Mass ratio] 0.6 {ratio} Normal [facility] Comment on above: Performed By: #### C MP #### [facility] [address] [place] [address] Dr. Ekta Funk ALP [Catalytic activity/Vol] 82 U/L Normal 46-116 [facility] Comment on above: Performed By: #### C MP #### [facility] [address] [place] [address] Dr. Ekta Funk ALT [Catalytic activity/Vol] 13 U/L Critically low 14-[address] [facility] Comment on above: Performed By: #### C MP #### [facility] [address] [place] [address] Dr. Ekta Funk Anion gap [Moles/Vol] 14.0 mmol/L Normal [facility] Comment on above: Performed By: #### C MP #### [facility] [address] [place] [address] Dr. Ekta Funk AST [Catalytic activity/Vol] 18 U/L Normal 15-[address] [facility] Comment on above: Performed By: #### C MP #### [facility] [address] [address] [address] Ekta Funk Bilirubin [Mass/Vol] 0.4 mg/dL Normal 0.2-1.[address] [facility] Comment on above: Performed By: #### C MP #### [facility] [address] [address] [address] Ekta Funk Calcium [Mass/Vol] 8.6 mg/dL Normal 8.5-10.1 [facility] Comment on above: Performed By: #### C MP #### [facility] [address] [address] [address] Ekta Funk Chloride [Moles/Vol] 108 mmol/L Critically high 98-[address] [facility] Comment on above: Performed By: #### C MP #### [facility] [address] [address] [address] Ekta Funk CO2 [Moles/Vol] 19.6 mmol/L Critically low 21.0-32.[address] [facility] Comment on above: Performed By: #### C MP #### [facility] [address] [place] [address] Dr. Ekta Funk Creatinine [Mass/Vol] 1.70 mg/dL Critically high 0.55-1.[address] [facility] Comment on above: Performed By: #### C MP #### [facility] [address] [place] [address] Dr. Ekta Funk EGFR-AF CYMRO 36 mL/min/1.73m2 Critically low >=[address] [facility] Comment on above: Performed By: #### C MP #### [facility] [address] [address] [address] Ekta Funk EGFR-NON AF CYMRO 29 mL/min/1.73m2 Critically low >=[address] [facility] Comment on above: Performed By: #### C MP #### [facility] [address] [address] [address] Ekta Funk Globulin (S) [Mass/Vol] 3.6 g/dL Normal [facility] Comment on above: Performed By: #### C MP #### [facility] [address] [address] [address] Ekta Funk Glucose [Mass/Vol] 103 mg/dL Normal 74-106 [facility] Comment on above: Performed By: #### C MP #### [facility] [address] [address] [address] Ekta Funk Potassium [Moles/Vol] 4.6 mmol/L Normal 3.5-5.[address] [facility] Comment on above: Performed By: #### C MP #### [facility] [address] [address] [address] Ekta Funk Protein [Mass/Vol] 5.8 g/dL Critically low 6.4-8.2 [facility] Comment on above: Performed By: #### C MP #### [facility] [address] [address] [address] Ekta Funk Sodium [Moles/Vol] 137 mmol/L Normal 136-145 [facility] Comment on above: Performed By: #### C MP #### [facility] [address] [address] [address] Ekta Funk Urea nitrogen [Mass/Vol] 26.0 mg/dL Critically high 7.0-18.[address] [facility] Comment on above: Performed By: #### C MP #### [facility] [address] [address] [address] Ekta Funk Urea nitrogen/Creatinine [Mass ratio] 15.3 mg/mg Normal [facility] Comment on above: Performed By: #### C MP #### [facility] [address] [address] [address] Ekta Funk CBC AUTO DIFFon 11-25-2022 BASO # 0.1 103/ul Normal 0.0-0.[address] [facility] Comment on above: Performed By: #### C BC #### [facility] [address] [address] [address] Ekta Funk Basophils/100 WBC (Bld) 0.7 % Normal 0.2-2.[address] [facility] Comment on above: Performed By: #### C BC #### [facility] [address] [place] [address] Dr. Ekta Funk EO # 0.3 103/ul Normal 0.0-0.[address] [facility] Comment on above: Performed By: #### C BC #### [facility] [address] [place] [address] Dr. Ekta Funk Eosinophils/100 WBC (Bld) 3.4 % Normal 0.9-7.[address] [facility] Comment on above: Performed By: #### C BC #### [facility] [address] [place] [address] Dr. Ekta Funk Erythrocyte distribution width (RBC) [Ratio] 13.6 % Normal 11.0-15.[address] [facility] Comment on above: Performed By: #### C BC #### [facility] [address] [place] [address] Dr. Ekta Funk Hematocrit (Bld) [Volume fraction] 32.1 % Critically low 36.0-48.[address] [facility] Comment on above: Performed By: #### C BC #### [facility] [address] [place] [address] Dr. Ekta Funk Hemoglobin (Bld) [Mass/Vol] 10.3 g/dL Critically low 12.0-16.[address] [facility] Comment on above: Performed By: #### C BC #### [facility] [address] [place] [address] Dr. Ekta Funk IG # 0.08 10e3/ul Critically high 0.00-0.03 [facility] Comment on above: Performed By: #### C BC #### [facility] [address] [place] [address] Dr. Ekta Funk IG % 0.9 % Critically high 0.0-0.5 [facility] Comment on above: Performed By: #### C BC #### [facility] [address] [place] [address] Dr. Ekta Funk LYMPH # 0.9 103/ul Critically low 1.2-3.8 [facility] Comment on above: Performed By: #### C BC #### [facility] [address] [place] [address] Dr. Ekta Funk Lymphocytes/100 WBC (Bld) 10.7 % Critically low 20.5-60.[address] [facility] Comment on above: Performed By: #### C BC #### [facility] [address] [place] [address] Dr. Ekta Funk MANUAL DIFF REQ NO Normal [facility] Comment on above: Performed By: #### C BC #### [facility] [address] [place] [address] Dr. Ekta Funk MCH (RBC) [Entitic mass] 32.2 pg Normal 26.7-34.[address] [facility] Comment on above: Performed By: #### C BC #### [facility] [address] [place] [address] Dr. Ekta Funk MCHC (RBC) [Mass/Vol] 32.1 g/dL Normal 29.9-35.[address] [facility] Comment on above: Performed By: #### C BC #### [facility] [address] [place] [address] Dr. Ekta Funk MCV (RBC) [Entitic vol] 100.3 fL Critically high 81.0-99.[address] [facility] Comment on above: Performed By: #### C BC #### [facility] [address] [place] [address] Dr. Ekta Funk MONO # 0.9 103/ul Critically high 0.3-0.8 [facility] Comment on above: Performed By: #### C BC #### [facility] [address] [place] [address] Dr. Ekta Funk Monocytes/100 WBC (Bld) 9.9 % Normal 1.7-12.0 [facility] Comment on above: Performed By: #### C BC #### [facility] [address] [place] [address] Dr. Ekta Funk NEUT # 6.4 103/ul Normal 1.4-6.5 [facility] Comment on above: Performed By: #### C BC #### [facility] [address] [address] [address] Ekta Funk Neutrophils/100 WBC (Bld) 74.4 % Normal 43.0-75.[address] [facility] Comment on above: Performed By: #### C BC #### [facility] [address] [address] [address] Ekta Funk Platelet mean volume (Bld) [Entitic vol] 9.5 fL Normal 9.5-13.[address] [facility] Comment on above: Performed By: #### C BC #### [facility] [address] [place] [address] Dr. Ekta Funk PLT 267 103/ul Normal 150-450 [facility] Comment on above: Performed By: #### C BC #### [facility] [address] [place] [address] Dr. Ekta Funk RBC 3.20 106/ul Critically low 4.20-5.40 [facility] Comment on above: Performed By: #### C BC #### [facility] [address] [place] [address] Dr. Ekta Funk WBC 8.6 103/ul Normal 4.0-11.0 [facility] Comment on above: Performed By: #### C BC #### [facility] [address] [place] [address] Dr. Ekta Funk BASO # 0.1 103/ul Normal 0.0-0.1 [facility] Comment on above: Performed By: #### C MP #### [facility] [address] [place] [address] Dr. Ekta Funk Basophils/100 WBC (Bld) 0.7 % Normal 0.2-2.0 [facility] Comment on above: Performed By: #### C MP #### [facility] [address] [place] [address] Dr. Ekta Funk EO # 0.3 103/ul Normal 0.0-0.7 [facility] Comment on above: Performed By: #### C MP #### [facility] [address] [address] [address] Ekta Funk Eosinophils/100 WBC (Bld) 3.9 % Normal 0.9-7.[address] [facility] Comment on above: Performed By: #### C MP #### [facility] [address] [address] [address] Ekta Funk Erythrocyte distribution width (RBC) [Ratio] 13.2 % Normal 11.0-15.[address] [facility] Comment on above: Performed By: #### C MP #### [facility] [address] [place] [address] Dr. Ekta Funk Hematocrit (Bld) [Volume fraction] 28.0 % Critically low 36.0-48.[address] [facility] Comment on above: Performed By: #### C MP #### [facility] [address] [place] [address] Dr. Ekta Funk Hemoglobin (Bld) [Mass/Vol] 9.3 g/dL Critically low 12.0-16.[address] [facility] Comment on above: Performed By: #### C MP #### [facility] [address] [address] [address] Ekta Funk IG # 0.08 10e3/ul Critically high 0.00-0.03 [facility] Comment on above: Performed By: #### C MP #### [facility] [address] [place] [address] Dr. Ekta Funk IG % 1.1 % Critically high 0.0-0.5 [facility] Comment on above: Performed By: #### C MP #### [facility] [address] [address] [address] Ekta Funk LYMPH # 0.9 103/ul Critically low 1.2-3.8 [facility] Comment on above: Performed By: #### C MP #### [facility] [address] [address] [address] Ekta Funk Lymphocytes/100 WBC (Bld) 12.1 % Critically low 20.5-60.[address] [facility] Comment on above: Performed By: #### C MP #### [facility] [address] [place] [address] Dr. Ekta Funk MANUAL DIFF REQ NO Normal [facility] Comment on above: Performed By: #### C MP #### [facility] [address] [place] [address] Dr. Ekta Funk MCH (RBC) [Entitic mass] 32.0 pg Normal 26.7-34.[address] [facility] Comment on above: Performed By: #### C MP #### [facility] [address] [place] [address] Dr. Ekta Funk MCHC (RBC) [Mass/Vol] 33.2 g/dL Normal 29.9-35.[address] [facility] Comment on above: Performed By: #### C MP #### [facility] [address] [place] [address] Dr. Ekta Funk MCV (RBC) [Entitic vol] 96.2 fL Normal 81.0-99.[address] [facility] Comment on above: Performed By: #### C MP #### [facility] [address] [place] [address] Dr. Ekta Funk MONO # 0.7 103/ul Normal 0.3-0.[address] [facility] Comment on above: Performed By: #### C MP #### [facility] [address] [place] [address] Dr. Ekta Funk Monocytes/100 WBC (Bld) 9.8 % Normal 1.7-12.[address] [facility] Comment on above: Performed By: #### C MP #### [facility] [address] [place] [address] Dr. Ekta Funk NEUT # 5.2 103/ul Normal 1.4-6.5 [facility] Comment on above: Performed By: #### C MP #### [facility] [address] [place] [address] Dr. Ekta Funk Neutrophils/100 WBC (Bld) 72.4 % Normal 43.0-75.[address] [facility] Comment on above: Performed By: #### C MP #### [facility] [address] [place] [address] Dr. Ekta Funk Platelet mean volume (Bld) [Entitic vol] 9.4 fL Critically low 9.5-13.[address] [facility] Comment on above: Performed By: #### C MP #### [facility] [address] [address] [address] Ekta Funk PLT 250 103/ul Normal 150-[address] [facility] Comment on above: Performed By: #### C MP #### [facility] [address] [place] [address] Dr. Ekta Funk RBC 2.91 106/ul Critically low 4.20-5.40 [facility] Comment on above: Performed By: #### C MP #### [facility] [address] [place] [address] Dr. Ekta Funk WBC 7.2 103/ul Normal 4.0-11.[address] [facility] Comment on above: Performed By: #### C MP #### [facility] [address] [place] [address] Dr. Ekta Funk PROF 14(COMP METB)on 023 Albumin [Mass/Vol] 2.1 g/dL Critically low 3.4-5.0 [facility] Comment on above: Performed By: #### C MP #### [facility] [address] [place] [address] Dr. Ekta Funk Albumin/Globulin [Mass ratio] 0.6 {ratio} Normal [facility] Comment on above: Performed By: #### C MP #### [facility] [address] [place] [address] Dr. Ekta Funk ALP [Catalytic activity/Vol] 68 U/L Normal 46-[address] [facility] Comment on above: Performed By: #### C MP #### [facility] [address] [place] [address] Dr. Ekta Funk ALT [Catalytic activity/Vol] 14 U/L Normal 14-[address] [facility] Comment on above: Performed By: #### C MP #### [facility] [address] [place] [address] Dr. Ekta Funk Anion gap [Moles/Vol] 12.9 mmol/L Normal [facility] Comment on above: Performed By: #### C MP #### [facility] [address] [address] [address] Ekta Funk AST [Catalytic activity/Vol] 14 U/L Critically low 15-[address] [facility] Comment on above: Performed By: #### C MP #### [facility] [address] [address] [address] Ekta Funk Bilirubin [Mass/Vol] 0.3 mg/dL Normal 0.2-1.[address] [facility] Comment on above: Performed By: #### C MP #### [facility] [address] [address] [address] Ekta Funk Calcium [Mass/Vol] 8.3 mg/dL Critically low 8.5-10.1 [facility] Comment on above: Performed By: #### C MP #### [facility] [address] [address] [address] Ekta Funk Chloride [Moles/Vol] 109 mmol/L Critically high 98-[address] [facility] Comment on above: Performed By: #### C MP #### [facility] [address] [address] [address] Ekta Funk CO2 [Moles/Vol] 19.3 mmol/L Critically low 21.0-32.[address] [facility] Comment on above: Performed By: #### C MP #### [facility] [address] [address] [address] Ekta Funk Creatinine [Mass/Vol] 1.54 mg/dL Critically high 0.55-1.[address] [facility] Comment on above: Performed By: #### C MP #### [facility] [address] [address] [address] Ekta Funk EGFR-AF CYMRO 40 mL/min/1.73m2 Critically low >=[address] [facility] Comment on above: Performed By: #### C MP #### [facility] [address] [address] [address] Ekta Funk EGFR-NON AF CYMRO 33 mL/min/1.73m2 Critically low >=[address] [facility] Comment on above: Performed By: #### C MP #### [facility] [address] [address] [address] Ekta Funk Globulin (S) [Mass/Vol] 3.7 g/dL Normal [facility] Comment on above: Performed By: #### C MP #### [facility] [address] [address] [address] Ekta Funk Glucose [Mass/Vol] 117 mg/dL Critically high 74-106 [facility] Comment on above: Performed By: #### C MP #### [facility] [address] [address] [address] Ekta Funk Potassium [Moles/Vol] 4.2 mmol/L Normal 3.5-5.[address] [facility] Comment on above: Performed By: #### C MP #### [facility] [address] [address] [address] Ekta Funk Protein [Mass/Vol] 5.8 g/dL Critically low 6.4-8.2 [facility] Comment on above: Performed By: #### C MP #### [facility] [address] [address] [address] Ekta Funk Sodium [Moles/Vol] 137 mmol/L Normal 136-145 [facility] Comment on above: Performed By: #### C MP #### [facility] [address] [address] [address] Ekta Funk Urea nitrogen [Mass/Vol] 27.0 mg/dL Critically high 7.0-18.[address] [facility] Comment on above: Performed By: #### C MP #### [facility] [address] [address] [address] Ekta Funk Urea nitrogen/Creatinine [Mass ratio] 17.5 mg/mg Normal [facility] Comment on above: Performed By: #### C MP #### [facility] [address] [address] [address] Ekta Funk AMMONIAon 11-24-2022 Ammonia (P) [Moles/Vol] 13 umol/L Normal 11-32 [facility] Comment on above: Performed By: #### C VDTB #### [facility] [address] [place] [address] Dr. Ekta Funk CBC AUTO DIFFon 11-24-2022 BASO # 0.0 103/ul Normal 0.0-0.1 [facility] Comment on above: Performed By: #### C MP #### [facility] [address] [place] [address] Dr. Ekta Funk Basophils/100 WBC (Bld) 0.4 % Normal 0.2-2.0 [facility] Comment on above: Performed By: #### C MP #### [facility] [address] [place] [address] Dr. Ekta Funk EO # 0.4 103/ul Normal 0.0-0.7 [facility] Comment on above: Performed By: #### C MP #### [facility] [address] [place] [address] Dr. Ekta Funk Eosinophils/100 WBC (Bld) 3.8 % Normal 0.9-7.0 [facility] Comment on above: Performed By: #### C MP #### [facility] [address] [place] [address] Dr. Ekta Funk Erythrocyte distribution width (RBC) [Ratio] 13.2 % Normal 11.0-15.0 [facility] Comment on above: Performed By: #### C MP #### [facility] [address] [place] [address] Dr. Ekta Funk Hematocrit (Bld) [Volume fraction] 34.0 % Critically low 36.0-48.0 [facility] Comment on above: Performed By: #### C MP #### [facility] [address] [place] [address] Dr. Ekta Funk Hemoglobin (Bld) [Mass/Vol] 11.5 g/dL Critically low 12.0-16.0 [facility] Comment on above: Performed By: #### C MP #### [facility] [address] [address] [address] Ekta Funk IG # 0.11 10e3/ul Critically high 0.00-0.03 [facility] Comment on above: Performed By: #### C MP #### [facility] [address] [place] [address] Dr. Ekta Funk IG % 1.2 % Critically high 0.0-0.5 [facility] Comment on above: Performed By: #### C MP #### [facility] [address] [place] [address] Dr. Ekta Funk LYMPH # 1.4 103/ul Normal 1.2-3.[address] [facility] Comment on above: Performed By: #### C MP #### [facility] [address] [place] [address] Dr. Ekta Funk Lymphocytes/100 WBC (Bld) 14.9 % Critically low 20.5-60.[address] [facility] Comment on above: Performed By: #### C MP #### [facility] [address] [place] [address] Dr. Ekta Funk MANUAL DIFF REQ NO Normal [facility] Comment on above: Performed By: #### C MP #### [facility] [address] [place] [address] Dr. Ekta Funk MCH (RBC) [Entitic mass] 32.5 pg Normal 26.7-34.[address] [facility] Comment on above: Performed By: #### C MP #### [facility] [address] [place] [address] Dr. Ekta Funk MCHC (RBC) [Mass/Vol] 33.8 g/dL Normal 29.9-35.2 [facility] Comment on above: Performed By: #### C MP #### [facility] [address] [place] [address] Dr. Ekta Funk MCV (RBC) [Entitic vol] 96.0 fL Normal 81.0-99.[address] [facility] Comment on above: Performed By: #### C MP #### [facility] [address] [place] [address] Dr. Ekta Funk MONO # 0.9 103/ul Critically high 0.3-0.8 [facility] Comment on above: Performed By: #### C MP #### [facility] [address] [address] [address] Ekta Funk Monocytes/100 WBC (Bld) 9.7 % Normal 1.7-12.[address] [facility] Comment on above: Performed By: #### C MP #### [facility] [address] [place] [address] Dr. Ekta Funk NEUT # 6.4 103/ul Normal 1.4-6.[address] [facility] Comment on above: Performed By: #### C MP #### [facility] [address] [place] [address] Dr. Ekta Funk Neutrophils/100 WBC (Bld) 70.0 % Normal 43.0-75.[address] [facility] Comment on above: Performed By: #### C MP #### [facility] [address] [place] [address] Dr. Ekta Funk Platelet mean volume (Bld) [Entitic vol] 9.3 fL Critically low 9.5-13.[address] [facility] Comment on above: Performed By: #### C MP #### [facility] [address] [place] [address] Dr. Ekta Funk PLT 308 103/ul Normal 150-450 [facility] Comment on above: Performed By: #### C MP #### [facility] [address] [place] [address] Dr. Ekta Funk RBC 3.54 106/ul Critically low 4.20-5.40 [facility] Comment on above: Performed By: #### C MP #### [facility] [address] [place] [address] Dr. Etka Funk WBC 9.1 103/ul Normal 4.0-11.0 [facility] Comment on above: Performed By: #### C MP #### [facility] [address] [place] [address] Dr. Ekta Funk CPKon 11-24-2022 CK [Catalytic activity/Vol] 21 U/L Critically low 26-[address] [facility] Comment on above: Performed By: #### B 12FOL, CAROLYN, AURELIA #### [facility] [address] [address] [address] STROKE HEAD WOon [...] PARADA Date: 2022-11-24 11:[address] [facility] CTA HEAD WO W CONon 11-25-19 [...] DANIEL MARIE Date: 2022-11-24 12:41 Normal [facility] CULTURE URINEon 11-24-2022 CULTURE URINE Culture Observations : NO GROWTH. Normal [facility] Comment on above: Performed By: #### I NSULIN #### [facility] [address] [place] [address] Dr. Ekta Funk Covid-19 PCR ([facility])on 11-08 SARS-CoV-2 (COVID-19) RNA GANESH+probe Ql (Unsp spec) Not detected Normal NOT DETECTED [facility] Comment on above: Result Comment: When [...] for this test is supported by the Science And Operations Officer of Health and Human Service's declaration that [...] used). Performed By: #### C VDTB #### [facility] [address] [place] [address] Dr. Ekta Funk ER URINE PROFILEon 3 Bilirubin Ql (U) Negative Normal NEGATIVE [facility] Comment on above: Performed By: #### C BC #### [facility] [address] [place] [address] Dr. Ekta Funk Clarity (U) CLEAR Normal CLEAR [facility] Comment on above: Performed By: #### C BC #### [facility] Laboratory [address] [place] [address] Dr. Ekta Funk Color (U) LT. YELLOW Normal YELLOW [facility] Comment on above: Performed By: #### C BC #### [facility] [address] [place] [address] Dr. Ekta Funk ERUD A micrscopic examination will be performed if indicated. Normal [facility] Comment on above: Performed By: #### C BC #### [facility] [address] [place] [address] Dr. Ekta Funk Glucose Ql (U) Negative Normal NEGATIVE [facility] Comment on above: Performed By: #### C BC #### [facility] [address] [place] [address] Dr. Ekta Funk Hemoglobin Ql (U) Negative Normal NEGATIVE [facility] Comment on above: Performed By: #### C BC #### [facility] [address] [address] [address] Ekta Fukn Ketones Ql (U) Negative Normal NEGATIVE [facility] Comment on above: Performed By: #### C BC #### [facility] [address] [address] [address] Ekta Funk LEUKOCYTES Negative Normal NEGATIVE [facility] Comment on above: Performed By: #### C BC #### [facility] [address] [place] [address] Dr. Ekta Funk Nitrite Ql (U) Negative Normal NEGATIVE [facility] Comment on above: Performed By: #### C BC #### [facility] [address] [place] [address] Dr. Ekta Funk pH (U) 5.5 [pH] Normal 5-[address] [facility] Comment on above: Performed By: #### C BC #### [facility] [address] [place] [address] Dr. Ekta Funk SPEC GRAVITY 1.020 Normal 1.005-<=1.025 [facility] Comment on above: Performed By: #### C BC #### [facility] [address] [place] [address] Dr. Ekta Funk UA PROTEIN Negative Normal NEGATIVE/ TRACE [facility] Comment on above: Performed By: #### C BC #### [facility] [address] [place] [address] Dr. Ekta Funk UR MICRO IND NOT INDICATED Normal [facility] Comment on above: Performed By: #### C BC #### [facility] [address] [place] [address] Dr. Ekta Funk Urobilinogen Qn (U) 0.2 {Ivan'U}/dL Normal 0.2 - 1. [address] [facility] Comment on above: Performed By: #### C BC #### [facility] [address] [place] [address] Dr. Ekta Funk GLYCOHEMOGLOBIN A1Con 2022 ADA RECOMMENDATION SEE BELOW Normal [facility] Comment on above: Result Comment: ADA RECOMMENDED LIMIT 4.0 - 6.0 ADA THERAPEUTIC TARGET < 7.0 ACTION SUGGESTED > 7.0 Performed By: #### B 12FOL, VITAD, IRON #### [facility] [address] [place] [address] Dr. Ekta Funk Glucose [Mass/Vol] 143 mg/dL Normal The [facility] Comment on above: Performed By: #### B 12FOL, VITAD, IRON #### [facility] [address] [address] [address] Ekta Funk HbA1c (Bld) [Mass fraction] 6.6 % Critically high 4.5-6.[address] [facility] Comment on above: Performed By: #### B 12FOL, VITAD, IRON #### [facility] [address] [place] [address] Dr. Ekta Funk LACTATE/LACTIC ACIDon 2022 Lactate [Moles/Vol] 1.6 mmol/L Normal 0.4-2.0 [facility] Comment on above: Performed By: #### C MP #### [facility] [address] [place] [address] Dr. Ekta Funk Lactate [Moles/Vol] 2.1 mmol/L Critically high 0.4-2.[address] [facility] Comment on above: Performed By: #### B 12FOL, VITAD, IRON #### [facility] [address] [place] [address] Dr. Ekta Funk LIPASEon 11-24-2022 Lipase [Catalytic activity/Vol] 165.0 U/L Normal 73.0-393.[address] [facility] Comment on above: Performed By: #### B 12FOL, VITAD, IRON #### [facility] [address] [place] [address] Dr. Ekta Funk LIPID PROFILEon 11-24-2022 CHOL-HDL RATIO NORM SEE BELOW Normal The [facility] Comment on above: Result Comment: 3.3 - 4.4 LOW RISK 4.4 - 7.1 AVERAGE RISK 7.1 - 11.0 MODERATE RISK >11.0 HIGH RISK Performed By: #### B 12FOL, VITAD, IRON #### [facility] [address] [address] [address] Ekta Funk Cholesterol [Mass/Vol] 248 mg/dL Critically high <=[address] [facility] Comment on above: Performed By: #### B 12FOL, VITAD, IRON #### [facility] [address] [address] [address] Ekta Funk Cholesterol in HDL [Mass/Vol] 58 mg/dL Normal 40-[address] [facility] Comment on above: Performed By: #### B 12FOL, VITAD, IRON #### [facility] [address] [address] [address] Ekta Funk Cholesterol in LDL [Mass/Vol] 165.6 mg/dL Normal [facility] Comment on above: Performed By: #### B 12FOL, VITAD, IRON #### [facility] [address] [address] [address] Ekta Funk Cholesterol.total/Ch olesterol in HDL [Mass ratio] 4.3 {ratio} Normal [facility] Comment on above: Performed By: #### B 12FOL, VITAD, IRON #### [facility] [address] [address] [address] Ekta Funk HDL NORMAL > or = 60 mg/dl - LO W CARDIOVASCULAR RISK <40 mg/dl - HIGH CARDIOVASCULAR RISK Normal [facility] Comment on above: Performed By: #### B 12FOL, VITAD, IRON #### [facility] [address] [address] [address] Ekta Funk LDL CALC NORMAL SEE BELOW Normal [facility] Comment on above: Result Comment: <100 mg/dl OPTIMAL 100 - 129 mg/dl NEAR OR ABOVE OPTIMAL 130 - 159 mg/dl BORDERLINE HIGH 160 - 189 mg/dl HIGH >190 mg/dl VERY HIGH Performed By: #### B 12FOL, VITAD, IRON #### [facility] [address] [address] [address] Ekta Funk Triglyceride [Mass/Vol] 122 mg/dL Normal <=150 [facility] Comment on above: Performed By: #### B 12FOL, VITAD, IRON #### [facility] [address] [place], [place] [address] Dr. Ekta Funk VLDL CALC 24.4 mg/dL Normal [facility] Comment on above: Performed By: #### B 12FOL, VITAD, IRON #### [facility] [address] [place], [place] [address] Dr. Ekta Funk MRI BRAIN WO CONon [...] RAVEN ELAINE Date: 2022-11-24 19:35 Normal [facility] PROF 14(COMP METB)on 023 Albumin [Mass/Vol] 2.7 g/dL Critically low 3.4-5.0 Th e [facility] Comment on above: Performed By: #### B 12FOL, VITAD, IRON #### [facility] [address] [place], [place] [address] Dr. Ekta Funk Albumin/Globulin [Mass ratio] 0.6 {ratio} Normal [facility] Comment on above: Performed By: #### B 12FOL, VITAD, IRON #### [facility] [address] [address] [address] Ekta Funk ALP [Catalytic activity/Vol] 85 U/L Normal 46-[address] [facility] Comment on above: Performed By: #### B 12FOL, VITAD, IRON #### [facility] [address] [place] [address] Dr. Ekta Funk ALT [Catalytic activity/Vol] 18 U/L Normal 14-59 [facility] Comment on above: Performed By: #### B 12FOL, VITAD, IRON #### [facility] [address] [place] [address] Dr. Ekta Funk Anion gap [Moles/Vol] 18.9 mmol/L Normal [facility] Comment on above: Performed By: #### B 12FOL, VITAD, IRON #### [facility] [address] [place] [address] Dr. Ekta Funk AST [Catalytic activity/Vol] 16 U/L Normal 15-[address] [facility] Comment on above: Performed By: #### B 12FOL, VITAD, IRON #### [facility] [address] [place] [address] Dr. Ekta Funk Bilirubin [Mass/Vol] 0.4 mg/dL Normal 0.2-1.[address] [facility] Comment on above: Performed By: #### B 12FOL, VITAD, IRON #### [facility] [address] [place] [address] Dr. Ekta Funk Calcium [Mass/Vol] 9.5 mg/dL Normal 8.5-10.1 [facility] Comment on above: Performed By: #### B 12FOL, VITAD, IRON #### [facility] [address] [place] [address] Dr. Ekta Funk Chloride [Moles/Vol] 108 mmol/L Critically high 98-[address] [facility] Comment on above: Performed By: #### B 12FOL, VITAD, IRON #### [facility] [address] [address] [address] Ekta Funk CO2 [Moles/Vol] 21.1 mmol/L Normal 21.0-32.0 [facility] Comment on above: Performed By: #### B 12FOL, VITAD, IRON #### [facility] [address] [place] [address] Dr. Ekta Funk Creatinine [Mass/Vol] 2.08 mg/dL Critically high 0.55-1.[address] [facility] Comment on above: Performed By: #### B 12FOL, VITAD, IRON #### [facility] [address] [place] [address] Dr. Ekta Funk EGFR-AF CYMRO 28 mL/min/1.73m2 Critically low >=[address] [facility] Comment on above: Performed By: #### B 12FOL, VITAD, IRON #### [facility] [address] [place] [address] Dr. Ekta Funk EGFR-NON AF CYMRO 23 mL/min/1.73m2 Critically low >=[address] [facility] Comment on above: Performed By: #### B 12FOL, VITAD, IRON #### [facility] [address] [place] [address] Dr. Ekta Funk Globulin (S) [Mass/Vol] 4.6 g/dL Normal [facility] Comment on above: Performed By: #### B 12FOL, VITAD, IRON #### [facility] [address] [place] [address] Dr. Ekta Funk Glucose [Mass/Vol] 119 mg/dL Critically high 74-106 [facility] Comment on above: Performed By: #### B 12FOL, VITAD, IRON #### [facility] [address] [place] [address] Dr. Ekta Funk Potassium [Moles/Vol] 5.0 mmol/L Normal 3.5-5.[address] [facility] Comment on above: Performed By: #### B 12FOL, VITAD, IRON #### [facility] [address] [place] [address] Dr. Ekta Funk Protein [Mass/Vol] 7.3 g/dL Normal 6.4-8.2 The [facility] Comment on above: Performed By: #### B 12FOL, VITAD, IRON #### [facility] [address] [address] [address] Ekta Funk Sodium [Moles/Vol] 143 mmol/L Normal 136-145 The [facility] Comment on above: Performed By: #### B 12FOL, VITAD, IRON #### [facility] [address] [address] [address] Ekta Funk Urea nitrogen [Mass/Vol] 37.0 mg/dL Critically high 7.0-18.[address] [facility] Comment on above: Performed By: #### B 12FOL, VITAD, IRON #### [facility] [address] [place] [address] Dr. Ekta Funk Urea nitrogen/Creatinine [Mass ratio] 17.8 mg/mg Normal [facility] Comment on above: Performed By: #### B 12FOL, VITAD, IRON #### [facility] [address] [place] [address] Dr. Ekta Funk TROPONIN, HIGH SENSITIVITYon 11-24-2022 HSTROP 14.1 pg/mL Normal 4.0-51.3 [facility] Comment on above: Result Comment: CUT- OFF POINTS HAVE BEEN ESTABLISHED BASED ON THE FOURTH UNIVERSAL DEFINITIONS OF MYOCARDIAL INFARCTION. THE UPPER REFERENCE LIMIT (URL) OF TROPONIN, DEFINED THE 99TH PERCENTILE OF cTnI DISTRIBUTION IN A REFERENCE POPULATION, HAS BEEN CONFIRMED THE DECISION THRESHOLD FOR IA DIAGNOSIS. Performed By: #### B 12FOL, VITAD, IRON #### [facility] [address] [place] [address] Dr. Ekta Funk TSHon 11-24-2022 TSH 1.184 uIU/mL Normal 0.358-3.740 [facility] Comment on above: Performed By: #### B 12FOL, VITAD, IRON #### [facility] [address] [place] [address] Dr. Ekta Funk XR CHEST 1 Von [...] greater on the left. Electronically authenticated by: NTAALIIA TATE Date: 2022-11-24 11:00 Normal [facility] BNPon 11-13-2022 Natriuretic peptide B (Bld) [Mass/Vol] 565.0 pg/mL Normal <=900.[address] [facility] Comment on above: Performed By: #### I NSULIN #### [facility] [address] [place] [address] Dr. Ekta Funk CBC AUTO DIFFon 11-13-2022 BASO # 0.1 103/ul Normal 0.0-0.[address] [facility] Comment on above: Performed By: #### C BC #### [facility] [address] [place] [address] Dr. Ekta Funk Basophils/100 WBC (Bld) 0.6 % Normal 0.2-2.[address] [facility] Comment on above: Performed By: #### C BC #### [facility] [address] [place] [address] Dr. Ekta Funk EO # 0.4 103/ul Normal 0.0-0.[address] [facility] Comment on above: Performed By: #### C BC #### [facility] [address] [place] [address] Dr. Ekta Funk Eosinophils/100 WBC (Bld) 3.7 % Normal 0.9-7.[address] [facility] Comment on above: Performed By: #### C BC #### [facility] [address] [place] [address] Dr. Ekta Funk Erythrocyte distribution width (RBC) [Ratio] 13.2 % Normal 11.0-15.[address] [facility] Comment on above: Performed By: #### C BC #### [facility] [address] [address] [address] Ekta Funk Hematocrit (Bld) [Volume fraction] 36.7 % Normal 36.0-48.[address] [facility] Comment on above: Performed By: #### C BC #### [facility] [address] [address] [address] Ekta Funk Hemoglobin (Bld) [Mass/Vol] 12.4 g/dL Normal 12.0-16.[address] [facility] Comment on above: Performed By: #### C BC #### [facility] [address] [place] [address] Dr. Ekta Funk IG # 0.10 10e3/ul Critically high 0.00-0.03 [facility] Comment on above: Performed By: #### C BC #### [facility] [address] [place] [address] Dr. Ekta Funk IG % 1.0 % Critically high 0.0-0.5 [facility] Comment on above: Performed By: #### C BC #### [facility] [address] [address] [address] Ekta Funk LYMPH # 1.5 103/ul Normal 1.2-3.[address] [facility] Comment on above: Performed By: #### C BC #### [facility] [address] [place] [address] Dr. Ekta Funk Lymphocytes/100 WBC (Bld) 14.9 % Critically low 20.5-60.[address] [facility] Comment on above: Performed By: #### C BC #### [facility] [address] [place] [address] Dr. Ekta Funk MANUAL DIFF REQ NO Normal [facility] Comment on above: Performed By: #### C BC #### [facility] [address] [place] [address] Dr. Ekta Funk MCH (RBC) [Entitic mass] 32.8 pg Normal 26.7-34.[address] [facility] Comment on above: Performed By: #### C BC #### [facility] [address] [address] [address] Ekta Funk MCHC (RBC) [Mass/Vol] 33.8 g/dL Normal 29.9-35.[address] [facility] Comment on above: Performed By: #### C BC #### [facility] [address] [address] [address] Ekta Funk MCV (RBC) [Entitic vol] 97.1 fL Normal 81.0-99.[address] [facility] Comment on above: Performed By: #### C BC #### [facility] [address] [address] [address] Ekta Funk MONO # 0.8 103/ul Normal 0.3-0.[address] [facility] Comment on above: Performed By: #### C BC #### [facility] [address] [place] [address] Dr. Ekta Funk Monocytes/100 WBC (Bld) 7.7 % Normal 1.7-12.[address] [facility] Comment on above: Performed By: #### C BC #### [facility] [address] [address] [address] Ekta Funk NEUT # 7.3 103/ul Critically high 1.4-6.5 [facility] Comment on above: Performed By: #### C BC #### [facility] [address] [place] [address] Dr. Ekta Funk Neutrophils/100 WBC (Bld) 72.1 % Normal 43.0-75.0 [facility] Comment on above: Performed By: #### C BC #### [facility] [address] [address] [address] Ekta Funk Platelet mean volume (Bld) [Entitic vol] 9.4 fL Critically low 9.5-13.[address] [facility] Comment on above: Performed By: #### C BC #### [facility] [address] [address] [address] Ekta Funk PLT 251 103/ul Normal 150-450 [facility] Comment on above: Performed By: #### C BC #### [facility] [address] [address] [address] Ekta Funk RBC 3.78 106/ul Critically low 4.20-5.40 [facility] Comment on above: Performed By: #### C BC #### [facility] [address] [address] [address] Ekta Funk WBC 10.1 103/ul Normal 4.0-11.[address] [facility] Comment on above: Performed By: #### C BC #### [facility] [address] [address] [address] Ekta Funk FREE THYROXINE INDEX T7on FTI 2.73 Normal 1.30-4.[address] [facility] Comment on above: Performed By: #### I NSULIN #### [facility] [address] [place] [address] Dr. Ekta Funk T3U 35.0 % Normal 30.0-39.[address] [facility] Comment on above: Performed By: #### I NSULIN #### [facility] [address] [address] [address] Ekta Funk T4 [Mass/Vol] 7.80 ug/dL Normal 4.80-13.90 [facility] Comment on above: Performed By: #### I NSULIN #### [facility] [address] [address] [address] Ekta Funk GLYCOHEMOGLOBIN A1Con 2022 ADA RECOMMENDATION SEE BELOW Normal [facility] Comment on above: Result Comment: ADA RECOMMENDED LIMIT 4.0 - 6.0 ADA THERAPEUTIC TARGET < 7.0 ACTION SUGGESTED > 7.0 Performed By: #### B 12FOL, VITAD, IRON #### [facility] [address] [address] [address] Ekta Funk Glucose [Mass/Vol] 134 mg/dL Normal [facility] Comment on above: Performed By: #### B 12FOL, VITAD, IRON #### [facility] [address] [address] [address] Ekta Funk HbA1c (Bld) [Mass fraction] 6.3 % Critically high 4.5-6.[address] [facility] Comment on above: Performed By: #### B 12FOL VITAD, IRON #### [facility] [address] [address] [address] Ekta Funk IRONon 11-13-2022 Iron [Mass/Vol] 55.0 ug/dL Normal 50.0-170.0 [facility] Comment on above: Performed By: #### B 12FOL VITAD, IRON #### [facility] [address] [address] [address] Ekta Funk LIPID PROFILEon 11-13-2022 CHOL-HDL RATIO NORM SEE BELOW Normal [facility] Comment on above: Result Comment: 3.3 - 4.4 LOW RISK 4.4 - 7.1 AVERAGE RISK 7.1 - 11.0 MODERATE RISK >11.0 HIGH RISK Performed By: #### I NSULIN #### [facility] [address] [address] [address] Ekta Funk Cholesterol [Mass/Vol] 294 mg/dL Critically high <=[address] [facility] Comment on above: Performed By: #### I NSULIN #### [facility] [address] [address] [address] Ekta Funk Cholesterol in HDL [Mass/Vol] 64 mg/dL Critically high 40-[address] [facility] Comment on above: Performed By: #### I NSULIN #### [facility] [address] [address] [address] Ekta Funk Cholesterol in LDL [Mass/Vol] 197.2 mg/dL Normal [facility] Comment on above: Performed By: #### I NSULIN #### [facility] [address] [address] [address] Ekta Funk Cholesterol.total/Ch olesterol in HDL [Mass ratio] 4.6 {ratio} Normal [facility] Comment on above: Performed By: #### I NSULIN #### [facility] [address] [address] [address] Ekta Funk HDL NORMAL > or = 60 mg/dl - LO W CARDIOVASCULAR RISK <40 mg/dl - HIGH CARDIOVASCULAR RISK Normal [facility] Comment on above: Performed By: #### I NSULIN #### [facility] [address] [address] [address] Ekta Funk LDL CALC NORMAL SEE BELOW Normal [facility] Comment on above: Result Comment: <100 mg/dl OPTIMAL 100 - 129 mg/dl NEAR OR ABOVE OPTIMAL 130 - 159 mg/dl BORDERLINE HIGH 160 - 189 mg/dl HIGH >190 mg/dl VERY HIGH Performed By: #### I NSULIN #### [facility] [address] [address] [address] Ekta Funk Triglyceride [Mass/Vol] 164 mg/dL Critically high <=[address] [facility] Comment on above: Performed By: #### I NSULIN #### [facility] [address] [place] [address] Dr. Ekta Funk VLDL CALC 32.8 mg/dL Normal [facility] Comment on above: Performed By: #### I NSULIN #### [facility] [address] [address] [address] Ekta Funk PROF 14(COMP METB)on 023 Albumin [Mass/Vol] 3.0 g/dL Critically low 3.4-5.0 [facility] Comment on above: Performed By: #### I NSULIN #### [facility] [address] [place] [address] Dr. Ekta Funk Albumin/Globulin [Mass ratio] 0.6 {ratio} Normal [facility] Comment on above: Performed By: #### I NSULIN #### [facility] [address] [place] [address] Dr. Ekta Funk ALP [Catalytic activity/Vol] 92 U/L Normal 46-[address] [facility] Comment on above: Performed By: #### I NSULIN #### [facility] [address] [place] [address] Dr. Ekta Funk ALT [Catalytic activity/Vol] 26 U/L Normal 14-[address] [facility] Comment on above: Performed By: #### I NSULIN #### [facility] [address] [address] [address] Ekta Funk Anion gap [Moles/Vol] 16.2 mmol/L Normal [facility] Comment on above: Performed By: #### I NSULIN #### [facility] [address] [address] [address] Ekta Funk AST [Catalytic activity/Vol] 16 U/L Normal 15-[address] [facility] Comment on above: Performed By: #### I NSULIN #### [facility] [address] [address] [address] Ekta Funk Bilirubin [Mass/Vol] 0.5 mg/dL Normal 0.2-1.[address] [facility] Comment on above: Performed By: #### I NSULIN #### [facility] [address] [place] [address] Dr. Ekta Funk Calcium [Mass/Vol] 9.7 mg/dL Normal 8.5-10.1 [facility] Comment on above: Performed By: #### I NSULIN #### [facility] [address] [place] [address] Dr. Ekta Funk Chloride [Moles/Vol] 105 mmol/L Normal 98-[address] [facility] Comment on above: Performed By: #### I NSULIN #### [facility] [address] [place] [address] Dr. Ekta Funk CO2 [Moles/Vol] 24.9 mmol/L Normal 21.0-32.0 [facility] Comment on above: Performed By: #### I NSULIN #### [facility] [address] [place] [address] Dr. Ekta Funk Creatinine [Mass/Vol] 2.18 mg/dL Critically high 0.55-1.[address] [facility] Comment on above: Performed By: #### I NSULIN #### [facility] [address] [place] [address] Dr. Ekta Funk EGFR-AF CYMRO 27 mL/min/1.73m2 Critically low >=60 [facility] Comment on above: Performed By: #### I NSULIN #### [facility] [address] [place] [address] Dr. Ekta Funk EGFR-NON AF CYMRO 22 mL/min/1.73m2 Critically low >=[address] [facility] Comment on above: Performed By: #### I NSULIN #### [facility] [address] [place] [address] Dr. Ekta Funk Globulin (S) [Mass/Vol] 4.7 g/dL Normal [facility] Comment on above: Performed By: #### I NSULIN #### [facility] [address] [address] [address] Ekta Funk Glucose [Mass/Vol] 114 mg/dL Critically high 74-106 [facility] Comment on above: Performed By: #### I NSULIN #### [facility] [address] [place] [address] Dr. Ekta Funk Potassium [Moles/Vol] 5.1 mmol/L Normal 3.5-5.[address] [facility] Comment on above: Performed By: #### I NSULIN #### [facility] [address] [place] [address] Dr. Ekta Funk Protein [Mass/Vol] 7.7 g/dL Normal 6.4-8.2 The [facility] Comment on above: Performed By: #### I NSULIN #### [facility] [address] [place] [address] Dr. Ekta Funk Sodium [Moles/Vol] 141 mmol/L Normal 136-145 The [facility] Comment on above: Performed By: #### I NSULIN #### [facility] [address] [place] [address] Dr. Ekta Funk Urea nitrogen [Mass/Vol] 51.0 mg/dL Critically high 7.0-18.[address] [facility] Comment on above: Performed By: #### I NSULIN #### [facility] [address] [place] [address] Dr. Ekta Funk Urea nitrogen/Creatinine [Mass ratio] 23.4 mg/mg Normal [facility] Comment on above: Performed By: #### I NSULIN #### [facility] [address] [place] [address] Dr. Ekta Funk TSHon 11-13-2022 TSH 0.935 uIU/mL Normal 0.358-3.740 [facility] Comment on above: Performed By: #### I NSULIN #### [facility] [address] [place] [address] Dr. Ekta Funk XR CHEST 2 Von [...] GODWIN BECK Date: 2022-11-13 15:40 Normal [facility] PROF 14(COMP METB)on 023 Albumin [Mass/Vol] 3.0 g/dL Critically low 3.4-5.0 Th [facility] Comment on above: Performed By: #### Bob 12FOL, VITAD, IRON #### [facility] [address] [place] [address] Dr. Ekta Funk Albumin/Globulin [Mass ratio] 0.7 {ratio} Normal [facility] Comment on above: Performed By: #### Bob 12FOL, VITAD, IRON #### [facility] [address] [address] [address] Ekta Funk ALP [Catalytic activity/Vol] 89 U/L Normal 46-[address] [facility] Comment on above: Performed By: #### Bob 12FOL, VITAD, IRON #### [facility] [address] [place] [address] Dr. Ekta Funk ALT [Catalytic activity/Vol] 29 U/L Normal 14-[address] [facility] Comment on above: Performed By: #### Bob 12FOL, VITAD, IRON #### [facility] [address] [place] [address] Dr. Ekta Funk Anion gap [Moles/Vol] 15.2 mmol/L Normal [facility] Comment on above: Performed By: #### B 12FOL, VITAD, IRON #### [facility] [address] [address] [address] Ekta Funk AST [Catalytic activity/Vol] 14 U/L Critically low 15-[address] [facility] Comment on above: Performed By: #### B 12FOL, VITAD, IRON #### [facility] [address] [address] [address] Ekta Funk Bilirubin [Mass/Vol] 0.4 mg/dL Normal 0.2-1.[address] [facility] Comment on above: Performed By: #### B 12FOL, VITAD, IRON #### [facility] [address] [place] [address] Dr. Ekat Funk Calcium [Mass/Vol] 9.1 mg/dL Normal 8.5-10.1 [facility] Comment on above: Performed By: #### B 12FOL, VITAD, IRON #### [facility] [address] [address] [address] Ekta Funk Chloride [Moles/Vol] 106 mmol/L Normal 98-[address] [facility] Comment on above: Performed By: #### B 12FOL, VITAD, IRON #### [facility] [address] [address] [address] Ekta Funk CO2 [Moles/Vol] 24.2 mmol/L Normal 21.0-32.0 [facility] Comment on above: Performed By: #### B 12FOL, VITAD, IRON #### [facility] [address] [address] [address] Ekta Funk Creatinine [Mass/Vol] 1.89 mg/dL Critically high 0.55-1.[address] [facility] Comment on above: Performed By: #### B 12FOL, VITAD, IRON #### [facility] [address] [address] [address] Ekta Funk EGFR-AF CYMRO 32 mL/min/1.73m2 Critically low >=[address] [facility] Comment on above: Performed By: #### B 12FOL, VITAD, IRON #### [facility] [address] [place] [address] Dr. Ekta Funk EGFR-NON AF CYMRO 26 mL/min/1.73m2 Critically low >=[address] [facility] Comment on above: Performed By: #### B 12FOL, VITAD, IRON #### [facility] [address] [place] [address] Dr. Ekta Funk Globulin (S) [Mass/Vol] 4.1 g/dL Normal [facility] Comment on above: Performed By: #### B 12FOL, VITAD, IRON #### [facility] [address] [place] [address] Dr. Ekta Funk Glucose [Mass/Vol] 108 mg/dL Critically high 74-106 [facility] Comment on above: Performed By: #### B 12FOL, VITAD, IRON #### [facility] [address] [place] [address] Dr. Ekta Funk Potassium [Moles/Vol] 4.4 mmol/L Normal 3.5-5.[address] [facility] Comment on above: Performed By: #### B 12FOL, VITAD, IRON #### [facility] [address] [place] [address] Dr. Ekta Funk Protein [Mass/Vol] 7.1 g/dL Normal 6.4-8.2 The [facility] Comment on above: Performed By: #### B 12FOL, VITAD, IRON #### [facility] [address] [place] [address] Dr. Ekta Funk Sodium [Moles/Vol] 141 mmol/L Normal 136-145 The [facility] Comment on above: Performed By: #### B 12FOL, VITAD, IRON #### [facility] [address] [place] [address] Dr. Ekta Funk Urea nitrogen [Mass/Vol] 40.0 mg/dL Critically high 7.0-18.[address] [facility] Comment on above: Performed By: #### B 12FOL, VITAD, IRON #### [facility] [address] [place] [address] Dr. Ekta Funk Urea nitrogen/Creatinine [Mass ratio] 21.2 mg/mg Normal [facility] Comment on above: Performed By: #### B 12FOL, VITAD, IRON #### [facility] [address] [place] [address] Dr. Ekta Funk BNPon 10-23-2022 Natriuretic peptide B (Bld) [Mass/Vol] 507.0 pg/mL Normal <=900.[address] [facility] Comment on above: Performed By: #### B 12FOL, VITAD, IRON #### [facility] [address] [place] [address] Dr. Ekta Funk CBC AUTO DIFFon 10-23-2022 BASO # 0.0 103/ul Normal 0.0-0.[address] [facility] Comment on above: Performed By: #### C BC #### [facility] [address] [place] [address] Dr. Ekta Funk Basophils/100 WBC (Bld) 0.2 % Normal 0.2-2.[address] [facility] Comment on above: Performed By: #### C BC #### [facility] [address] [place] [address] Dr. Ekta Funk EO # 0.1 103/ul Normal 0.0-0.[address] [facility] Comment on above: Performed By: #### C BC #### [facility] [address] [place] [address] Dr. Ekta Funk Eosinophils/100 WBC (Bld) 1.1 % Normal 0.9-7.0 [facility] Comment on above: Performed By: #### C BC #### [facility] [address] [place] [address] Dr. Ekta Funk Erythrocyte distribution width (RBC) [Ratio] 12.8 % Normal 11.0-15.[address] [facility] Comment on above: Performed By: #### C BC #### [facility] [address] [place] [address] Dr. Ekta Funk Hematocrit (Bld) [Volume fraction] 37.1 % Normal 36.0-48.[address] [facility] Comment on above: Performed By: #### C BC #### [facility] [address] [place] [address] Dr. Ekta Funk Hemoglobin (Bld) [Mass/Vol] 13.0 g/dL Normal 12.0-16.[address] [facility] Comment on above: Performed By: #### C BC #### [facility] [address] [place] [address] Dr. Ekta Funk IG # 0.11 10e3/ul Critically high 0.00-0.03 [facility] Comment on above: Performed By: #### C BC #### [facility] [address] [place] [address] Dr. Ekta Funk IG % 1.1 % Critically high 0.0-0.5 [facility] Comment on above: Performed By: #### C BC #### [facility] [address] [place] [address] Dr. Ekta Funk LYMPH # 1.6 103/ul Normal 1.2-3.[address] [facility] Comment on above: Performed By: #### C BC #### [facility] [address] [place] [address] Dr. Ekta Funk Lymphocytes/100 WBC (Bld) 15.6 % Critically low 20.5-60.[address] [facility] Comment on above: Performed By: #### C BC #### [facility] [address] [place] [address] Dr. Ekta Funk MANUAL DIFF REQ NO Normal [facility] Comment on above: Performed By: #### C BC #### [facility] [address] [place] [address] Dr. Ekta Funk MCH (RBC) [Entitic mass] 32.8 pg Normal 26.7-34.[address] [facility] Comment on above: Performed By: #### C BC #### [facility] [address] [place] [address] Dr. Ekta Funk MCHC (RBC) [Mass/Vol] 35.0 g/dL Normal 29.9-35.[address] [facility] Comment on above: Performed By: #### C BC #### [facility] [address] [place] [address] Dr. Ekta Funk MCV (RBC) [Entitic vol] 93.7 fL Normal 81.0-99.[address] [facility] Comment on above: Performed By: #### C BC #### [facility] [address] [place] [address] Dr. Ekta Funk MONO # 0.9 103/ul Critically high 0.3-0.8 [facility] Comment on above: Performed By: #### C BC #### [facility] [address] [place] [address] Dr. Ekta Funk Monocytes/100 WBC (Bld) 8.3 % Normal 1.7-12.[address] [facility] Comment on above: Performed By: #### C BC #### [facility] [address] [place] [address] Dr. Ekta Funk NEUT # 7.5 103/ul Critically high 1.4-6.5 [facility] Comment on above: Performed By: #### C BC #### [facility] [address] [place] [address] Dr. Ekta Funk Neutrophils/100 WBC (Bld) 73.7 % Normal 43.0-75.[address] [facility] Comment on above: Performed By: #### C BC #### [facility] [address] [place] [address] Dr. Ekta Funk Platelet mean volume (Bld) [Entitic vol] 10.3 fL Normal 9.5-13.5 [facility] Comment on above: Performed By: #### C BC #### [facility] [address] [place] [address] Dr. Ekta Funk PLT 135 103/ul Critically low 150-450 [facility] Comment on above: Performed By: #### C BC #### [facility] [address] [place] [address] Dr. Ekta Funk RBC 3.96 106/ul Critically low 4.20-5.40 [facility] Comment on above: Performed By: #### C BC #### [facility] [address] [place] [address] Dr. Ekta Funk WBC 10.2 103/ul Normal 4.0-11.[address] [facility] Comment on above: Performed By: #### C BC #### [facility] [address] [place] [address] Dr. Ekta Funk PROF 14(COMP METB)on 023 Albumin [Mass/Vol] 2.7 g/dL Critically low 3.4-5.0 [facility] Comment on above: Performed By: #### B 12FOL, VITAD, IRON #### [facility] [address] [place] [address] Dr. Ekta Funk Albumin/Globulin [Mass ratio] 0.8 {ratio} Normal [facility] Comment on above: Performed By: #### B 12FOL, VITAD, IRON #### [facility] [address] [place] [address] Dr. Ekta Funk ALP [Catalytic activity/Vol] 74 U/L Normal 46-[address] [facility] Comment on above: Performed By: #### B 12FOL, VITAD, IRON #### [facility] [address] [place] [address] Dr. Ekta Funk ALT [Catalytic activity/Vol] 26 U/L Normal 14-[address] [facility] Comment on above: Performed By: #### B 12FOL, VITAD, IRON #### [facility] [address] [place] [address] Dr. Ekta Funk Anion gap [Moles/Vol] 16.5 mmol/L Normal [facility] Comment on above: Performed By: #### B 12FOL, VITAD, IRON #### [facility] [address] [place] [address] Dr. Ekta Funk AST [Catalytic activity/Vol] 15 U/L Normal 15-[address] [facility] Comment on above: Performed By: #### B 12FOL, VITAD, IRON #### [facility] [address] [place] [address] Dr. Ekta Funk Bilirubin [Mass/Vol] 0.4 mg/dL Normal 0.2-1.[address] [facility] Comment on above: Performed By: #### B 12FOL, VITAD, IRON #### [facility] [address] [place] [address] Dr. Ekta Funk Calcium [Mass/Vol] 8.1 mg/dL Critically low 8.5-10.1 [facility] Comment on above: Performed By: #### B 12FOL, VITAD, IRON #### [facility] [address] [place] [address] Dr. Ekta Funk Chloride [Moles/Vol] 96 mmol/L Critically low 98-[address] [facility] Comment on above: Performed By: #### B 12FOL, VITAD, IRON #### [facility] [address] [place] [address] Dr. Ekta Funk CO2 [Moles/Vol] 26.1 mmol/L Normal 21.0-32.0 [facility] Comment on above: Performed By: #### B 12FOL, VITAD, IRON #### [facility] [address] [place] [address] Dr. Ekta Funk Creatinine [Mass/Vol] 3.28 mg/dL Critically high 0.55-1.[address] [facility] Comment on above: Performed By: #### B 12FOL, VITAD, IRON #### [facility] [address] [place] [address] Dr. Ekta Funk EGFR-AF CYMRO 17 mL/min/1.73m2 Critically low >=[address] [facility] Comment on above: Performed By: #### B 12FOL, VITAD, IRON #### [facility] [address] [place] [address] Dr. Ekta Funk EGFR-NON AF CYMRO 14 mL/min/1.73m2 Critically low >=[address] [facility] Comment on above: Performed By: #### B 12FOL, VITAD, IRON #### [facility] [address] [place] [address] Dr. Ekta Funk Globulin (S) [Mass/Vol] 3.6 g/dL Normal [facility] Comment on above: Performed By: #### B 12FOL, VITAD, IRON #### [facility] [address] [place] [address] Dr. Ekta Funk Glucose [Mass/Vol] 132 mg/dL Critically high 74-106 [facility] Comment on above: Performed By: #### B 12FOL, VITAD, IRON #### [facility] [address] [place] [address] Dr. Ekta Funk Potassium [Moles/Vol] 4.6 mmol/L Normal 3.5-5.[address] [facility] Comment on above: Performed By: #### B 12FOL, VITAD, IRON #### [facility] [address] [place] [address] Dr. Ekta Funk Protein [Mass/Vol] 6.3 g/dL Critically low 6.4-8.2 [facility] Comment on above: Performed By: #### B 12FOL, VITAD, IRON #### [facility] [address] [place] [address] Dr. Ekta Funk Sodium [Moles/Vol] 134 mmol/L Critically low 136-145 Th [facility] Comment on above: Performed By: #### B 12FOL, VITAD, IRON #### [facility] [address] [place] [address] Dr. Ekta Funk Urea nitrogen [Mass/Vol] 74.0 mg/dL Critically high 7.0-18.[address] [facility] Comment on above: Performed By: #### B 12FOL, VITAD, IRON #### [facility] [address] [place] [address] Dr. Ekta Funk Urea nitrogen/Creatinine [Mass ratio] 22.6 mg/mg Normal [facility] Comment on above: Performed By: #### B 12FOL, VITAD, IRON #### [facility] [address] [place] [address] Dr. Ekta Funk BNPon 10-22-2022 Natriuretic peptide B (Bld) [Mass/Vol] 1411.0 pg/mL Critically high <=900.0 [facility] Comment on above: Performed By: #### B 12FOL, VITAD, IRON #### [facility] [address] [place] [address] Dr. Ekta Funk CBC AUTO DIFFon 10-22-2022 BASO # 0.0 103/ul Normal 0.0-0.1 [facility] Comment on above: Performed By: #### B 12FOL, VITAD, IRON #### [facility] [address] [place] [address] Dr. Ekta Funk Basophils/100 WBC (Bld) 0.3 % Normal 0.2-2.0 [facility] Comment on above: Performed By: #### B 12FOL, VITAD, IRON #### [facility] [address] [place] [address] Dr. Ekta Funk EO # 0.1 103/ul Normal 0.0-0.[address] [facility] Comment on above: Performed By: #### B 12FOL, VITAD, IRON #### [facility] [address] [place] [address] Dr. Ekta Funk Eosinophils/100 WBC (Bld) 0.6 % Critically low 0.9-7.[address] [facility] Comment on above: Performed By: #### B 12FOL, VITAD, IRON #### [facility] [address] [place] [address] Dr. Ekta Funk Erythrocyte distribution width (RBC) [Ratio] 12.9 % Normal 11.0-15.[address] [facility] Comment on above: Performed By: #### B 12FOL, VITAD, IRON #### [facility] [address] [place] [address] Dr. Ekta Funk Hematocrit (Bld) [Volume fraction] 40.8 % Normal 36.0-48.[address] [facility] Comment on above: Performed By: #### B 12FOL, VITAD, IRON #### [facility] [address] [place] [address] Dr. Ekta Funk Hemoglobin (Bld) [Mass/Vol] 14.0 g/dL Normal 12.0-16.[address] [facility] Comment on above: Performed By: #### B 12FOL, VITAD, IRON #### [facility] [address] [place] [address] Dr. Ekta Funk IG # 0.09 10e3/ul Critically high 0.00-0.03 [facility] Comment on above: Performed By: #### B 12FOL, VITAD, IRON #### [facility] [address] [place] [address] Dr. Ekta Funk IG % 0.8 % Critically high 0.0-0.5 [facility] Comment on above: Performed By: #### B 12FOL, VITAD, IRON #### [facility] [address] [place] [address] Dr. Ekta Funk LYMPH # 1.8 103/ul Normal 1.2-3.8 [facility] Comment on above: Performed By: #### B 12FOL, VITAD, IRON #### [facility] [address] [place] [address] Dr. Ekta Funk Lymphocytes/100 WBC (Bld) 16.2 % Critically low 20.5-60.[address] [facility] Comment on above: Performed By: #### B 12FOL, VITAD, IRON #### [facility] [address] [place] [address] Dr. Ekta Funk MANUAL DIFF REQ NO Normal [facility] Comment on above: Performed By: #### B 12FOL, VITAD, IRON #### [facility] [address] [place] [address] Dr. Ekta Funk MCH (RBC) [Entitic mass] 32.3 pg Normal 26.7-34.[address] [facility] Comment on above: Performed By: #### B 12FOL, VITAD, IRON #### [facility] [address] [place] [address] Dr. Ekta Funk MCHC (RBC) [Mass/Vol] 34.3 g/dL Normal 29.9-35.[address] [facility] Comment on above: Performed By: #### B 12FOL, VITAD, IRON #### [facility] [address] [address] [address] Ekta Funk MCV (RBC) [Entitic vol] 94.2 fL Normal 81.0-99.[address] [facility] Comment on above: Performed By: #### B 12FOL, VITAD, IRON #### [facility] [address] [place] [address] Dr. Ekta Funk MONO # 0.8 103/ul Normal 0.3-0.8 [facility] Comment on above: Performed By: #### B 12FOL, VITAD, IRON #### [facility] [address] [place] [address] Dr. Ekta Funk Monocytes/100 WBC (Bld) 7.3 % Normal 1.7-12.0 [facility] Comment on above: Performed By: #### B 12FOL, VITAD, IRON #### [facility] [address] [place] [address] Dr. Ekta Funk NEUT # 8.1 103/ul Critically high 1.4-6.5 [facility] Comment on above: Performed By: #### B 12FOL, VITAD, IRON #### [facility] [address] [place] [address] Dr. Ekta Funk Neutrophils/100 WBC (Bld) 74.8 % Normal 43.0-75.0 [facility] Comment on above: Performed By: #### B 12FOL, VITAD, IRON #### [facility] [address] [place] [address] Dr. Ekta Funk Platelet mean volume (Bld) [Entitic vol] 9.8 fL Normal 9.5-13.5 [facility] Comment on above: Performed By: #### B 12FOL, VITAD, IRON #### [facility] [address] [place] [address] Dr. Ekta Funk PLT 226 103/ul Normal 150-450 [facility] Comment on above: Performed By: #### B 12FOL, VITAD, IRON #### [facility] [address] [place] [address] Dr. Ekta Funk RBC 4.33 106/ul Normal 4.20-5.[address] [facility] Comment on above: Performed By: #### B 12FOL, VITAD, IRON #### [facility] [address] [place] [address] Dr. Ekta Funk WBC 10.9 103/ul Normal 4.0-11.[address] [facility] Comment on above: Performed By: #### B 12FOL, VITAD, IRON #### [facility] [address] [place] [address] Dr. Ekta Funk PROF 14(COMP METB)on 023 Albumin [Mass/Vol] 3.1 g/dL Critically low 3.4-5.0 [facility] Comment on above: Performed By: #### B 12FOL, VITAD, IRON #### [facility] [address] [place] [address] Dr. Ekta Funk Albumin/Globulin [Mass ratio] 0.7 {ratio} Normal [facility] Comment on above: Performed By: #### B 12FOL, VITAD, IRON #### [facility] [address] [place] [address] Dr. Ekta Funk ALP [Catalytic activity/Vol] 81 U/L Normal 46-116 [facility] Comment on above: Performed By: #### B 12FOL, VITAD, IRON #### [facility] [address] [place] [address] Dr. Ekta Funk ALT [Catalytic activity/Vol] 30 U/L Normal 14-[address] [facility] Comment on above: Performed By: #### B 12FOL, VITAD, IRON #### [facility] [address] [place] [address] Dr. Ekta Funk Anion gap [Moles/Vol] 17.3 mmol/L Normal [facility] Comment on above: Performed By: #### B 12FOL, VITAD, IRON #### [facility] [address] [place] [address] Dr. Ekta Funk AST [Catalytic activity/Vol] 11 U/L Critically low 15-[address] [facility] Comment on above: Performed By: #### B 12FOL, VITAD, IRON #### [facility] [address] [address] [address] Ekta Funk Bilirubin [Mass/Vol] 0.5 mg/dL Normal 0.2-1.[address] [facility] Comment on above: Performed By: #### B 12FOL, VITAD, IRON #### [facility] [address] [address] [address] Ekta Funk Calcium [Mass/Vol] 8.6 mg/dL Normal 8.5-10.1 [facility] Comment on above: Performed By: #### B 12FOL, VITAD, IRON #### [facility] [address] [place] [address] Dr. Ekta Funk Chloride [Moles/Vol] 95 mmol/L Critically low 98-[address] [facility] Comment on above: Performed By: #### B 12FOL, VITAD, IRON #### [facility] [address] [place] [address] Dr. Ekta Funk CO2 [Moles/Vol] 27.3 mmol/L Normal 21.0-32.0 [facility] Comment on above: Performed By: #### B 12FOL, VITAD, IRON #### [facility] [address] [place] [address] Dr. Ekta Funk Creatinine [Mass/Vol] 3.17 mg/dL Critically high 0.55-1.[address] [facility] Comment on above: Performed By: #### B 12FOL, VITAD, IRON #### [facility] [address] [place] [address] Dr. Ekta Funk EGFR-AF CYMRO 17 mL/min/1.73m2 Critically low >=[address] [facility] Comment on above: Performed By: #### B 12FOL, VITAD, IRON #### [facility] [address] [place] [address] Dr. Ekta Funk EGFR-NON AF CYMRO 14 mL/min/1.73m2 Critically low >=[address] [facility] Comment on above: Performed By: #### B 12FOL, VITAD, IRON #### [facility] [address] [address] [address] Ekta Funk Globulin (S) [Mass/Vol] 4.6 g/dL Normal [facility] Comment on above: Performed By: #### B 12FOL, VITAD, IRON #### [facility] Laboratory [address] [place] [address] Dr. Ekta Funk Glucose [Mass/Vol] 139 mg/dL Critically high 74-106 [facility] Comment on above: Performed By: #### B 12FOL, VITAD, IRON #### [facility] [address] [place] [address] Dr. Ekta Funk Potassium [Moles/Vol] 4.6 mmol/L Normal 3.5-5.[address] [facility] Comment on above: Performed By: #### B 12FOL, VITAD, IRON #### [facility] [address] [place] [address] Dr. Ekta Funk Protein [Mass/Vol] 7.7 g/dL Normal 6.4-8.2 [facility] Comment on above: Performed By: #### B 12FOL, VITAD, IRON #### [facility] [address] [place] [address] Dr. Ekta Funk Sodium [Moles/Vol] 135 mmol/L Critically low 136-145 [facility] Comment on above: Performed By: #### B 12FOL, VITAD, IRON #### [facility] [address] [place] [address] Dr. Ekta Funk Urea nitrogen [Mass/Vol] 73.0 mg/dL Critically high 7.0-18.[address] [facility] Comment on above: Performed By: #### B 12FOL, VITAD, IRON #### [facility] [address] [place] [address] Dr. Ekta Funk Urea nitrogen/Creatinine [Mass ratio] 23.0 mg/mg Normal [facility] Comment on above: Performed By: #### B 12FOL, VITAD, IRON #### [facility] [address] [place] [address] Dr. Ekta Funk BNPon 10-21-2022 Natriuretic peptide B (Bld) [Mass/Vol] 2007.0 pg/mL Critically high <=900.[address] [facility] Comment on above: Performed By: #### C MP #### [facility] [address] [place] [address] Dr. Ekta Funk CBC AUTO DIFFon 10-21-2022 BASO # 0.0 103/ul Normal 0.0-0.[address] [facility] Comment on above: Performed By: #### C BC #### [facility] [address] [place] [address] Dr. Ekta Funk Basophils/100 WBC (Bld) 0.2 % Normal 0.2-2.[address] [facility] Comment on above: Performed By: #### C BC #### [facility] [address] [place] [address] Dr. Ekta Funk EO # 0.1 103/ul Normal 0.0-0.[address] [facility] Comment on above: Performed By: #### C BC #### [facility] [address] [place] [address] Dr. Ekta Funk Eosinophils/100 WBC (Bld) 0.9 % Normal 0.9-7.[address] [facility] Comment on above: Performed By: #### C BC #### [facility] [address] [place] [address] Dr. Ekta Funk Erythrocyte distribution width (RBC) [Ratio] 12.8 % Normal 11.0-15.0 [facility] Comment on above: Performed By: #### C BC #### [facility] [address] [place] [address] Dr. Ekta Funk Hematocrit (Bld) [Volume fraction] 38.8 % Normal 36.0-48.[address] [facility] Comment on above: Performed By: #### C BC #### [facility] [address] [place] [address] Dr. Ekta Funk Hemoglobin (Bld) [Mass/Vol] 13.3 g/dL Normal 12.0-16.[address] [facility] Comment on above: Performed By: #### C BC #### [facility] [address] [place] [address] Dr. Ekta Funk IG # 0.08 10e3/ul Critically high 0.00-0.03 [facility] Comment on above: Performed By: #### C BC #### [facility] [address] [place] [address] Dr. Ekta Funk IG % 0.8 % Critically high 0.0-0.5 [facility] Comment on above: Performed By: #### C BC #### [facility] [address] [place] [address] Dr. Ekta Funk LYMPH # 1.7 103/ul Normal 1.2-3.[address] [facility] Comment on above: Performed By: #### C BC #### [facility] [address] [place] [address] Dr. Ekta Funk Lymphocytes/100 WBC (Bld) 17.3 % Critically low 20.5-60.[address] [facility] Comment on above: Performed By: #### C BC #### [facility] [address] [place] [address] Dr. Ekta Funk MANUAL DIFF REQ NO Normal [facility] Comment on above: Performed By: #### C BC #### [facility] [address] [place] [address] Dr. Ekta Funk MCH (RBC) [Entitic mass] 32.1 pg Normal 26.7-34.[address] [facility] Comment on above: Performed By: #### C BC #### [facility] [address] [place] [address] Dr. Ekta Funk MCHC (RBC) [Mass/Vol] 34.3 g/dL Normal 29.9-35.[address] [facility] Comment on above: Performed By: #### C BC #### [facility] [address] [place] [address] Dr. Ekta Funk MCV (RBC) [Entitic vol] 93.7 fL Normal 81.0-99.[address] [facility] Comment on above: Performed By: #### C BC #### [facility] [address] [address] [address] Ekta Funk MONO # 0.6 103/ul Normal 0.3-0.8 [facility] Comment on above: Performed By: #### C BC #### [facility] [address] [address] [address] Ekta Funk Monocytes/100 WBC (Bld) 6.4 % Normal 1.7-12.[address] [facility] Comment on above: Performed By: #### C BC #### [facility] [address] [address] [address] Ekta Funk NEUT # 7.4 103/ul Critically high 1.4-6.5 [facility] Comment on above: Performed By: #### C BC #### [facility] [address] [place] [address] Dr. Ekta Funk Neutrophils/100 WBC (Bld) 74.4 % Normal 43.0-75.[address] [facility] Comment on above: Performed By: #### C BC #### [facility] [address] [place] [address] Dr. Ekta Funk Platelet mean volume (Bld) [Entitic vol] 9.8 fL Normal 9.5-13.[address] [facility] Comment on above: Performed By: #### C BC #### [facility] [address] [place] [address] Dr. Ekta Funk PLT 193 103/ul Normal 150-450 [facility] Comment on above: Performed By: #### C BC #### [facility] [address] [address] [address] Ekta Funk RBC 4.14 106/ul Critically low 4.20-5.40 [facility] Comment on above: Performed By: #### C BC #### [facility] [address] [address] [address] Ekta Funk WBC 9.9 103/ul Normal 4.0-11.0 [facility] Comment on above: Performed By: #### C BC #### [facility] [address] [place] [address] Dr. Ekta Funk PROF 14(COMP METB)on 023 Albumin [Mass/Vol] 3.2 g/dL Critically low 3.4-5.0 Th e [facility] Comment on above: Performed By: #### I NSULIN #### [facility] [address] [place] [address] Dr. Ekta Funk Albumin/Globulin [Mass ratio] 0.8 {ratio} Normal [facility] Comment on above: Performed By: #### I NSULIN #### [facility] [address] [place] [address] Dr. Ekta Funk ALP [Catalytic activity/Vol] 82 U/L Normal 46-[address] [facility] Comment on above: Performed By: #### I NSULIN #### [facility] [address] [place] [address] Dr. Ekta Funk ALT [Catalytic activity/Vol] 38 U/L Normal 14-[address] [facility] Comment on above: Performed By: #### I NSULIN #### [facility] [address] [place] [address] Dr. Ekta Funk Anion gap [Moles/Vol] 19.1 mmol/L Normal [facility] Comment on above: Performed By: #### I NSULIN #### [facility] [address] [place] [address] Dr. Ekta Funk AST [Catalytic activity/Vol] 19 U/L Normal 15-[address] [facility] Comment on above: Performed By: #### I NSULIN #### [facility] [address] [place] [address] Dr. Ekta Funk Bilirubin [Mass/Vol] 0.4 mg/dL Normal 0.2-1.[address] [facility] Comment on above: Performed By: #### I NSULIN #### [facility] [address] [place] [address] Dr. Ekta Funk Calcium [Mass/Vol] 9.2 mg/dL Normal 8.5-10.1 [facility] Comment on above: Performed By: #### I NSULIN #### [facility] [address] [address] [address] Ekta Funk Chloride [Moles/Vol] 98 mmol/L Normal 98-[address] [facility] Comment on above: Performed By: #### I NSULIN #### [facility] [address] [address] [address] Ekta Funk CO2 [Moles/Vol] 26.4 mmol/L Normal 21.0-32.0 [facility] Comment on above: Performed By: #### I NSULIN #### [facility] [address] [address] [address] Ekta Funk Creatinine [Mass/Vol] 2.20 mg/dL Critically high 0.55-1.[address] [facility] Comment on above: Performed By: #### I NSULIN #### [facility] [address] [place] [address] Dr. Ekta Funk EGFR-AF CYMRO 26 mL/min/1.73m2 Critically low >=[address] [facility] Comment on above: Performed By: #### I NSULIN #### [facility] [address] [place] [address] Dr. Ekta Funk EGFR-NON AF CYMRO 22 mL/min/1.73m2 Critically low >=[address] [facility] Comment on above: Performed By: #### I NSULIN #### [facility] [address] [place] [address] Dr. Ekta Funk Globulin (S) [Mass/Vol] 3.8 g/dL Normal [facility] Comment on above: Performed By: #### I NSULIN #### [facility] [address] [address] [address] Ekta Funk Glucose [Mass/Vol] 142 mg/dL Critically high 74-106 [facility] Comment on above: Performed By: #### I NSULIN #### [facility] [address] [address] [address] Ekta Funk Potassium [Moles/Vol] 4.5 mmol/L Normal 3.5-5.[address] [facility] Comment on above: Performed By: #### I NSULIN #### [facility] [address] [address] [address] Ekta Funk Protein [Mass/Vol] 7.0 g/dL Normal 6.4-8.2 [facility] Comment on above: Performed By: #### I NSULIN #### [facility] [address] [address] [address] Ekta Funk Sodium [Moles/Vol] 139 mmol/L Normal 136-145 [facility] Comment on above: Performed By: #### I NSULIN #### [facility] [address] [address] [address] Ekta Funk Urea nitrogen [Mass/Vol] 57.0 mg/dL Critically high 7.0-18.[address] [facility] Comment on above: Performed By: #### I NSULIN #### [facility] [address] [address] [address] Ekta Funk Urea nitrogen/Creatinine [Mass ratio] 25.9 mg/mg Normal [facility] Comment on above: Performed By: #### I NSULIN #### [facility] [address] [address] [address] Ekta Funk T3, TOTAL (TRIIODOTHYRONINE) on 10-21-2022 T3, TOTAL 63 ng/dL Critically low 71-180 [facility] Comment on above: Performed By: #### C MP #### [facility] [address] [address] [address] Ekta Funk XR ABD FLAT_UPon 10-21-2022 [...] by: DANIEL MARIE Date: 2022-10-21 11:[address] [facility] XR CHEST 2 Von 10-21-2022 XR [...] by: CHRISTIANO MORALES Date: 2022-10-21 11:[address] [facility] BNPon 10-20-2022 Natriuretic peptide B (Bld) [Mass/Vol] 2512.0 pg/mL Critically high <=900.0 [facility] Comment on above: Performed By: #### B CAROLYN LAUGHLIN, IRON #### [facility] [address] [place] [address] Dr. Ekta Funk CARDIAC BRITTANIE ADMITon 023 CK [Catalytic activity/Vol] 35 U/L Normal 26-[address] [facility] Comment on above: Performed By: #### Bob FelixFOL VITAD, IRON #### [facility] [address] [address] [address] Ekta Funk CK.MB [Mass/Vol] 0.64 ng/mL Normal <=3.60 [facility] Comment on above: Performed By: #### Bob SIDDIQIL VITAD, IRON #### [facility] [address] [address] [address] Ekta Funk HSTROP 28.1 pg/mL Normal 4.0-51.3 [facility] Comment on above: Result Comment: CUT- OFF POINTS HAVE BEEN ESTABLISHED BASED ON THE FOURTH UNIVERSAL DEFINITIONS OF MYOCARDIAL INFARCTION. THE UPPER REFERENCE LIMIT (URL) OF TROPONIN, DEFINED THE 99TH PERCENTILE OF cTnI DISTRIBUTION IN A REFERENCE POPULATION, HAS BEEN CONFIRMED THE DECISION THRESHOLD FOR IA DIAGNOSIS. Performed By: #### B 12FOL VITAD, IRON #### [facility] [address] [address] [address] Ekta Funk EVELYN 57 ng/mL Normal 9-82 [facility] Comment on above: Performed By: #### B NENO LAUGHLINAD, IRON #### [facility] [address] [address] [address] Ekta Funk CBC AUTO DIFFon 10-20-2022 BASO # 0.0 103/ul Normal 0.0-0.[address] [facility] Comment on above: Performed By: #### C BC #### [facility] [address] [address] [address] Ekta Funk Basophils/100 WBC (Bld) 0.2 % Normal 0.2-2.[address] [facility] Comment on above: Performed By: #### C BC #### [facility] [address] [address] [address] Ekta Funk EO # 0.2 103/ul Normal 0.0-0.[address] [facility] Comment on above: Performed By: #### C BC #### [facility] [address] [address] [address] Ekta Funk Eosinophils/100 WBC (Bld) 1.4 % Normal 0.9-7.[address] [facility] Comment on above: Performed By: #### C BC #### [facility] [address] [address] [address] Ekta Funk Erythrocyte distribution width (RBC) [Ratio] 12.9 % Normal 11.0-15.[address] [facility] Comment on above: Performed By: #### C BC #### [facility] [address] [address] [address] Ekta Funk Hematocrit (Bld) [Volume fraction] 34.7 % Critically low 36.0-48.[address] [facility] Comment on above: Performed By: #### C BC #### [facility] [address] [address] [address] Ekta Funk Hemoglobin (Bld) [Mass/Vol] 11.8 g/dL Critically low 12.0-16.[address] [facility] Comment on above: Performed By: #### C BC #### [facility] [address] [address] [address] Ekta Funk IG # 0.09 10e3/ul Critically high 0.00-0.03 [facility] Comment on above: Performed By: #### C BC #### [facility] [address] [address] [address] Ekta Funk IG % 0.8 % Critically high 0.0-0.5 [facility] Comment on above: Performed By: #### C BC #### [facility] [address] [place] [address] Dr. Ekta Funk LYMPH # 1.9 103/ul Normal 1.2-3.[address] [facility] Comment on above: Performed By: #### C BC #### [facility] [address] [place] [address] Dr. Ekta Funk Lymphocytes/100 WBC (Bld) 16.1 % Critically low 20.5-60.[address] [facility] Comment on above: Performed By: #### C BC #### [facility] [address] [place] [address] Dr. Ekta Funk MANUAL DIFF REQ NO Normal [facility] Comment on above: Performed By: #### C BC #### [facility] [address] [place] [address] Dr. Ekta Funk MCH (RBC) [Entitic mass] 32.6 pg Normal 26.7-34.[address] [facility] Comment on above: Performed By: #### C BC #### [facility] [address] [place] [address] Dr. Ekta Funk MCHC (RBC) [Mass/Vol] 34.0 g/dL Normal 29.9-35.[address] [facility] Comment on above: Performed By: #### C BC #### [facility] [address] [place] [address] Dr. Ekta Funk MCV (RBC) [Entitic vol] 95.9 fL Normal 81.0-99.[address] [facility] Comment on above: Performed By: #### C BC #### [facility] [address] [place] [address] Dr. Ekta Funk MONO # 0.8 103/ul Normal 0.3-0.[address] [facility] Comment on above: Performed By: #### C BC #### [facility] [address] [address] [address] Ekta Funk Monocytes/100 WBC (Bld) 7.0 % Normal 1.7-12.[address] [facility] Comment on above: Performed By: #### C BC #### [facility] [address] [address] [address] Ekta Funk NEUT # 8.8 103/ul Critically high 1.4-6.5 [facility] Comment on above: Performed By: #### C BC #### [facility] [address] [address] [address] Ekta Funk Neutrophils/100 WBC (Bld) 74.5 % Normal 43.0-75.[address] [facility] Comment on above: Performed By: #### C BC #### [facility] [address] [place] [address] Dr. Ekta Funk Platelet mean volume (Bld) [Entitic vol] 9.8 fL Normal 9.5-13.[address] [facility] Comment on above: Performed By: #### C BC #### [facility] [address] [place] [address] Dr. Ekta Funk PLT 203 103/ul Normal 150-[address] [facility] Comment on above: Performed By: #### C BC #### [facility] [address] [place] [address] Dr. Ekta Funk RBC 3.62 106/ul Critically low 4.20-5.40 [facility] Comment on above: Performed By: #### C BC #### [facility] [address] [place] [address] Dr. Ekta Funk WBC 11.8 103/ul Critically high 4.0-11.0 [facility] Comment on above: Performed By: #### C BC #### [facility] [address] [place] [address] Dr. Ekta Funk CULTURE URINEon 10-20-2022 CULTURE URINE Culture Observations : NO GROWTH. Normal [facility] Comment on above: Performed By: #### I NSULIN #### [facility] [address] [place], [place] [address] Dr. Ekta Funk [facility]on 10-11 SARS-CoV-2 (COVID-19) RNA GANESH+probe Ql (Unsp spec) Not detected Normal NOT DETECTED [facility] Comment on above: Result Comment: When [...] for this test is supported by the Science And Operations Officer of Health and Human Service's declaration that [...] By: #### B 12FOL, VITAD, IRON #### [facility] [address] [place] [id number] [address] Ekta Funk ECHOCARDIO M/2D COMPLETEon 0 10-20-2022 ECHOCARDIO M/2D COMPLETE Patient: SHEILA MAC Exam Date: 10/20/2022 : 1950 Gender:F Ordering : DR KRZYSZTOF HARP . Admission #: [id number] Family : Order #: [id number] CLICK HERE TO VIEW EXAM ECHOCARDIOGRAM REPORT [...] on 10/20/2022 at 14:[address] [facility] PROF 14(COMP METB)on 023 Albumin [Mass/Vol] 2.8 g/dL Critically low 3.4-5.0 [facility] Comment on above: Performed By: #### B 12FOL, VITAD, IRON #### [facility] [address] [address] [address] Ekta Funk Albumin/Globulin [Mass ratio] 0.7 {ratio} [facility] Comment on above: Performed By: #### B 12FOL, VITAD, IRON #### [facility] [address] [address] [address] Ekta Funk ALP [Catalytic activity/Vol] 84 U/L Normal 46-[address] [facility] Comment on above: Performed By: #### B 12FOL, VITAD, IRON #### [facility] [address] [address] [address] Ekta Funk ALT [Catalytic activity/Vol] 29 U/L Normal 14-[address] [facility] Comment on above: Performed By: #### B 12FOL, VITAD, IRON #### [facility] [address] [address] [address] Ekta Funk Anion gap [Moles/Vol] 15.9 mmol/L Normal [facility] Comment on above: Performed By: #### B 12FOL, VITAD, IRON #### [facility] [address] [address] [address] Ekta Funk AST [Catalytic activity/Vol] 15 U/L Normal 15-[address] [facility] Comment on above: Performed By: #### B 12FOL, VITAD, IRON #### [facility] [address] [place] [address] Dr. Ekta Funk Bilirubin [Mass/Vol] 0.3 mg/dL Normal 0.2-1.[address] [facility] Comment on above: Performed By: #### B 12FOL, VITAD, IRON #### [facility] [address] [place] [address] Dr. Ekta Funk Calcium [Mass/Vol] 8.9 mg/dL Normal 8.5-10.1 [facility] Comment on above: Performed By: #### B 12FOL, VITAD, IRON #### [facility] [address] [place] [address] Dr. Ekta Funk Chloride [Moles/Vol] 103 mmol/L Normal 98-[address] [facility] Comment on above: Performed By: #### B 12FOL, VITAD, IRON #### [facility] [address] [place] [address] Dr. Ekta Funk CO2 [Moles/Vol] 26.3 mmol/L Normal 21.0-32.0 [facility] Comment on above: Performed By: #### B 12FOL, VITAD, IRON #### [facility] [address] [place] [address] Dr. Ekta Funk Creatinine [Mass/Vol] 1.99 mg/dL Critically high 0.55-1.[address] [facility] Comment on above: Performed By: #### B 12FOL, VITAD, IRON #### [facility] [address] [place] [address] Dr. Ekta Funk EGFR-AF CYMRO 30 mL/min/1.73m2 Critically low >=[address] [facility] Comment on above: Performed By: #### B 12FOL, VITAD, IRON #### [facility] [address] [place] [address] Dr. Ekta Funk EGFR-NON AF CYMRO 24 mL/min/1.73m2 Critically low >=[address] [facility] Comment on above: Performed By: #### B 12FOL, VITAD, IRON #### [facility] [address] [address] [address] Ekta Funk Globulin (S) [Mass/Vol] 4.1 g/dL Normal [facility] Comment on above: Performed By: #### B 12FOL, VITAD, IRON #### [facility] [address] [address] [address] Ekta Funk Glucose [Mass/Vol] 115 mg/dL Critically high 74-106 [facility] Comment on above: Performed By: #### B 12FOL, VITAD, IRON #### [facility] [address] [place] [address] Dr. Ekta Funk Potassium [Moles/Vol] 5.2 mmol/L Critically high 3.5-5.[address] [facility] Comment on above: Performed By: #### B 12FOL, VITAD, IRON #### [facility] [address] [place] [address] Dr. Ekta Funk Protein [Mass/Vol] 6.9 g/dL Normal 6.4-8.2 [facility] Comment on above: Performed By: #### B 12FOL, VITAD, IRON #### [facility] [address] [place] [address] Dr. Ekta Funk Sodium [Moles/Vol] 140 mmol/L Normal 136-145 [facility] Comment on above: Performed By: #### B 12FOL, VITAD, IRON #### [facility] [address] [place] [address] Dr. Ekta Funk Urea nitrogen [Mass/Vol] 45.0 mg/dL Critically high 7.0-18.[address] [facility] Comment on above: Performed By: #### B 12FOL, VITAD, IRON #### [facility] [address] [place] [address] Dr. Ekta Funk Urea nitrogen/Creatinine [Mass ratio] 22.6 mg/mg Normal [facility] Comment on above: Performed By: #### B 12FOL, VITAD, IRON #### [facility] [address] [place] [address] Dr. Ekta Funk T4on 10-20-2022 T4 [Mass/Vol] 6.10 ug/dL Normal 4.80-13.90 [facility] Comment on above: Performed By: #### B 12FOL, VITAD, IRON #### [facility] [address] [place] [address] Dr. Ekta Funk TSHon 10-20-2022 TSH 1.336 uIU/mL Normal 0.358-3.740 [facility] Comment on above: Performed By: #### B 12FOL, VITAD, IRON #### [facility] [address] [place] [address] Dr. Ekta Funk UA RANDOM W/MICROSCOPICon BACTERIA TRACE Abnormal NONE SEEN [facility] Comment on above: Performed By: #### B 12FOL, VITAD, IRON #### [facility] [address] [place] [address] Dr. Ekta Funk Bilirubin Ql (U) Negative Normal NEGATIVE [facility] Comment on above: Performed By: #### B 12FOL, VITAD, IRON #### [facility] [address] [place] [address] Dr. Ekta Funk CAST NONE SEEN Normal NONE SEEN [facility] Comment on above: Performed By: #### B 12FOL, VITAD, IRON #### [facility] [address] [place] [address] Dr. Ekta Funk Clarity (U) CLEAR Normal CLEAR [facility] Comment on above: Performed By: #### B 12FOL, VITAD, IRON #### [facility] [address] [place] [address] Dr. Ekta Funk Color (U) LT. YELLOW Normal YELLOW [facility] Comment on above: Performed By: #### B 12FOL, VITAD, IRON #### [facility] [address] [place] [address] Dr. Ekta Funk Crystals LM Nom (Urine sed) NONE SEEN Normal NONE SEEN [facility] Comment on above: Performed By: #### B 12FOL, VITAD, IRON #### [facility] [address] [address] [address] Ekta Funk Epithelial cells LM Ql (Urine sed) RARE Normal NONE SEEN /RARE [facility] Comment on above: Performed By: #### B 12FOL, VITAD, IRON #### [facility] [address] [address] [address] Ekta Funk Glucose Ql (U) Negative Normal NEGATIVE The [facility] Comment on above: Performed By: #### B 12FOL, VITAD, IRON #### [facility] [address] [address] [address] Ekta Funk Hemoglobin Ql (U) Negative Normal NEGATIVE The [facility] Comment on above: Performed By: #### B 12FOL, VITAD, IRON #### [facility] [address] [place] [address] Dr. Ekta Funk Ketones Ql (U) Negative Normal NEGATIVE [facility] Comment on above: Performed By: #### B 12FOL, VITAD, IRON #### [facility] [address] [address] [address] Ekta Funk LEUKOCYTES Negative Normal NEGATIVE [facility] Comment on above: Performed By: #### B 12FOL, VITAD, IRON #### [facility] [address] [place] [address] Dr. Ekta Funk MUCOUS NONE SEEN Normal NONE SEEN [facility] Comment on above: Performed By: #### B 12FOL, VITAD, IRON #### [facility] [address] [address] [address] Ekta Funk Nitrite Ql (U) Negative Normal NEGATIVE [facility] Comment on above: Performed By: #### B 12FOL, VITAD, IRON #### [facility] [address] [place] [address] Dr. Ekta Funk pH (U) 6.0 [pH] Normal 5-9 [facility] Comment on above: Performed By: #### B 12FOL, VITAD, IRON #### [facility] [address] [address] [address] Ekta Funk RBC 0-2 Normal 0-2 [facility] Comment on above: Performed By: #### B 12FOL, VITAD, IRON #### [facility] [address] [place] [address] Dr. Ekta Funk SPEC GRAVITY <=1.005 Abnormal 1.005-<=1.025 [facility] Comment on above: Performed By: #### B 12FOL, VITAD, IRON #### [facility] [address] [place] [address] Dr. Ekta Funk UA PROTEIN Negative Normal NEGATIVE/ TRACE [facility] Comment on above: Performed By: #### B 12FOL, VITAD, IRON #### [facility] [address] [place] [address] Dr. Ekta Funk Urobilinogen Qn (U) 0.2 {Ivan'U}/dL Normal 0.2 - 1. [address] [facility] Comment on above: Performed By: #### B 12FOL, VITAD, IRON #### [facility] [address] [place] [address] Dr. Ekta Funk WBC NONE SEEN Normal NONE SEEN [facility] Comment on above: Performed By: #### B 12FOL, VITAD, IRON #### [facility] [address] [place] [address] Dr. Ekta Funk BNPon 10-19-2022 Natriuretic peptide B (Bld) [Mass/Vol] 1355.0 pg/mL Critically high <=900.[address] [facility] Comment on above: Performed By: #### B 12FOL, VITAD, IRON #### [facility] [address] [place] [address] Dr. Ekta Funk INSULINon 10-19-2022 Insulin 12.4 uIU/mL Normal 2.6-24.9 [facility] Comment on above: Performed By: #### I NSULIN #### [facility] [address] [place] [address] Dr. Ekta Funk OCC BLD IMMUNO SCREENon OCCULT BLOOD Positive Abnormal NEGATIVE [facility] Comment on above: Performed By: #### B 12FOL, VITAD, IRON #### [facility] [address] [address] [address] Ekta Funk PROF CHEM 8 (BAS METB)on Anion gap [Moles/Vol] 15.8 mmol/L Normal [facility] Comment on above: Performed By: #### B 12FOL, VITAD, IRON #### [facility] [address] [place] [address] Dr. Ekta Funk Calcium [Mass/Vol] 8.8 mg/dL Normal 8.5-10.1 [facility] Comment on above: Performed By: #### B 12FOL, VITAD, IRON #### [facility] [address] [place] [address] Dr. Ekta Funk Chloride [Moles/Vol] 107 mmol/L Normal 98-[address] [facility] Comment on above: Performed By: #### B 12FOL, VITAD, IRON #### [facility] [address] [place] [address] Dr. Ekta Funk CO2 [Moles/Vol] 21.5 mmol/L Normal 21.0-32.0 [facility] Comment on above: Performed By: #### B 12FOL, VITAD, IRON #### [facility] [address] [place] [address] Dr. Ekta Funk Creatinine [Mass/Vol] 1.62 mg/dL Critically high 0.55-1.[address] [facility] Comment on above: Performed By: #### B 12FOL, VITAD, IRON #### [facility] [address] [place] [address] Dr. Ekta Funk EGFR-AF CYMRO 38 mL/min/1.73m2 Critically low >=[address] [facility] Comment on above: Performed By: #### B 12FOL, VITAD, IRON #### [facility] [address] [place] [address] Dr. Ekta Funk EGFR-NON AF CYMRO 31 mL/min/1.73m2 Critically low >=[address] [facility] Comment on above: Performed By: #### B 12FOL, VITAD, IRON #### [facility] [address] [address] [address] Ekta Funk Glucose [Mass/Vol] 134 mg/dL Critically high 74-106 [facility] Comment on above: Performed By: #### B 12FOL, VITAD, IRON #### [facility] [address] [address] [address] Ekta Funk Potassium [Moles/Vol] 5.3 mmol/L Critically high 3.5-5.[address] [facility] Comment on above: Performed By: #### B 12FOL, VITAD, IRON #### [facility] [address] [address] [address] Ekta Funk Sodium [Moles/Vol] 139 mmol/L Normal 136-145 [facility] Comment on above: Performed By: #### B 12FOL, VITAD, IRON #### [facility] [address] [place] [address] Dr. Ekta Funk Urea nitrogen [Mass/Vol] 37.0 mg/dL Critically high 7.0-18.[address] [facility] Comment on above: Performed By: #### B 12FOL, VITAD, IRON #### [facility] [address] [place] [address] Dr. Ekta Funk Urea nitrogen/Creatinine [Mass ratio] 22.8 mg/mg Normal [facility] Comment on above: Performed By: #### B 12FOL, VITAD, IRON #### [facility] [address] [place] [address] Dr. Ekta Funk TROPONIN, HIGH SENSITIVITYon 10-19-2022 HSTROP 53.2 pg/mL Critically high 4.0-51.3 [facility] Comment on above: Result Comment: CUT- OFF POINTS HAVE BEEN ESTABLISHED BASED ON THE FOURTH UNIVERSAL DEFINITIONS OF MYOCARDIAL INFARCTION. THE UPPER REFERENCE LIMIT (URL) OF TROPONIN, DEFINED THE 99TH PERCENTILE OF cTnI DISTRIBUTION IN A REFERENCE POPULATION, HAS BEEN CONFIRMED THE DECISION THRESHOLD FOR IA DIAGNOSIS. Performed By: #### B 12FOL, VITAD, IRON #### [facility] [address] [place] [address] Dr. Ekta Funk BNPon 10-18-2022 Natriuretic peptide B (Bld) [Mass/Vol] 1386.0 pg/mL Critically high <=900.[address] [facility] Comment on above: Performed By: #### C VDTBH #### [facility] [address] [place] [address] Dr. Ekta Funk CARDIAC BRITTANIE ADMITon 023 CK [Catalytic activity/Vol] 34 U/L Normal 26-192 [facility] Comment on above: Performed By: #### C VDTBH #### [facility] [address] [place] [address] Dr. Ekta Funk CK.MB [Mass/Vol] 1.43 ng/mL Normal <=3.60 The [facility] Comment on above: Performed By: #### C VDTBH #### [facility] [address] [place] [address] Dr. Ekta Funk HSTROP 74.1 pg/mL Critically high 4.0-51.3 The [facility] Comment on above: Result Comment: CUT- OFF POINTS HAVE BEEN ESTABLISHED BASED ON THE FOURTH UNIVERSAL DEFINITIONS OF MYOCARDIAL INFARCTION. THE UPPER REFERENCE LIMIT (URL) OF TROPONIN, DEFINED THE 99TH PERCENTILE OF cTnI DISTRIBUTION IN A REFERENCE POPULATION, HAS BEEN CONFIRMED THE DECISION THRESHOLD FOR IA DIAGNOSIS. Performed By: #### C VDTBH #### [facility] [address] [place] [address] Dr. Ekta Funk EVELYN 52 ng/mL Normal 9-82 [facility] Comment on above: Performed By: #### C VDTBH #### [facility] [address] [place] [address] Dr. Ekta Funk CBC AUTO DIFFon 10-18-2022 BASO # 0.0 103/ul Normal 0.0-0.[address] [facility] Comment on above: Performed By: #### C BC #### [facility] [address] [place] [address] Dr. Ekta Funk Basophils/100 WBC (Bld) 0.3 % Normal 0.2-2.[address] [facility] Comment on above: Performed By: #### C BC #### [facility] [address] [place] [address] Dr. Ekta Funk EO # 0.1 103/ul Normal 0.0-0.[address] [facility] Comment on above: Performed By: #### C BC #### [facility] [address] [place] [address] Dr. Ekta Funk Eosinophils/100 WBC (Bld) 0.9 % Normal 0.9-7.[address] [facility] Comment on above: Performed By: #### C BC #### [facility] [address] [place] [address] Dr. Ekta Funk Erythrocyte distribution width (RBC) [Ratio] 13.2 % Normal 11.0-15.[address] [facility] Comment on above: Performed By: #### C BC #### [facility] [address] [place] [address] Dr. Ekta Funk Hematocrit (Bld) [Volume fraction] 38.9 % Normal 36.0-48.[address] [facility] Comment on above: Performed By: #### C BC #### [facility] [address] [place] [address] Dr. Ekta Funk Hemoglobin (Bld) [Mass/Vol] 12.4 g/dL Normal 12.0-16.[address] [facility] Comment on above: Performed By: #### C BC #### [facility] [address] [place] [address] Dr. Ekta Funk IG # 0.08 10e3/ul Critically high 0.00-0.03 [facility] Comment on above: Performed By: #### C BC #### [facility] [address] [place] [address] Dr. Ekta Funk IG % 0.5 % Normal 0.0-0.[address] [facility] Comment on above: Performed By: #### C BC #### [facility] [address] [place] [address] Dr. Ekta Funk LYMPH # 1.4 103/ul Normal 1.2-3.[address] [facility] Comment on above: Performed By: #### C BC #### [facility] [address] [place] [address] Dr. Ekta Funk Lymphocytes/100 WBC (Bld) 9.6 % Critically low 20.5-60.[address] [facility] Comment on above: Performed By: #### C BC #### [facility] [address] [place] [address] Dr. Ekta Funk MANUAL DIFF REQ NO Normal [facility] Comment on above: Performed By: #### C BC #### [facility] [address] [place] [address] Dr. Ekta Funk MCH (RBC) [Entitic mass] 32.3 pg Normal 26.7-34.0 [facility] Comment on above: Performed By: #### C BC #### [facility] [address] [place] [address] Dr. Ekta Funk MCHC (RBC) [Mass/Vol] 31.9 g/dL Normal 29.9-35.2 [facility] Comment on above: Performed By: #### C BC #### [facility] [address] [place] [address] Dr. Ekta Funk MCV (RBC) [Entitic vol] 101.3 fL Critically high 81.0-99.[address] [facility] Comment on above: Performed By: #### C BC #### [facility] [address] [place] [address] Dr. Ekta Funk MONO # 0.9 103/ul Critically high 0.3-0.8 [facility] Comment on above: Performed By: #### C BC #### [facility] [address] [place] [address] Dr. Ekta Funk Monocytes/100 WBC (Bld) 6.3 % Normal 1.7-12.0 [facility] Comment on above: Performed By: #### C BC #### [facility] [address] [place] [address] Dr. Ekta Funk NEUT # 12.0 103/ul Critically high 1.4-6.5 [facility] Comment on above: Performed By: #### C BC #### [facility] [address] [address] [address] Ekta Funk Neutrophils/100 WBC (Bld) 82.4 % Critically high 43.0-75.[address] [facility] Comment on above: Performed By: #### C BC #### [facility] [address] [address] [address] Ekta Funk Platelet mean volume (Bld) [Entitic vol] 9.7 fL Normal 9.5-13.5 [facility] Comment on above: Performed By: #### C BC #### [facility] [address] [address] [address] Ekta Funk PLT 176 103/ul Normal 150-450 [facility] Comment on above: Performed By: #### C BC #### [facility] [address] [place] [address] Dr. Ekta Funk RBC 3.84 106/ul Critically low 4.20-5.40 [facility] Comment on above: Performed By: #### C BC #### [facility] [address] [place] [address] Dr. kEta Funk WBC 14.6 103/ul Critically high 4.0-11.0 [facility] Comment on above: Performed By: #### C BC #### [facility] [address] [place] [address] Dr. Ekta Funk FREE THYROXINE INDEX T7on FTI 2.34 Normal 1.30-4.50 [facility] Comment on above: Performed By: #### C VDTBH #### [facility] [address] [place] [address] Dr. Ekta Funk T3U 36.0 % Normal 30.0-39.0 [facility] Comment on above: Performed By: #### C VDTBH #### [facility] [address] [place] [address] Dr. Ekta Funk T4 [Mass/Vol] 6.50 ug/dL Normal 4.80-13.90 [facility] Comment on above: Performed By: #### C VDTBH #### [facility] [address] [address] [address] Ekta Funk GLYCOHEMOGLOBIN A1Con 2022 ADA RECOMMENDATION SEE BELOW Normal The [facility] Comment on above: Result Comment: ADA RECOMMENDED LIMIT 4.0 - 6.0 ADA THERAPEUTIC TARGET < 7.0 ACTION SUGGESTED > 7.0 Performed By: #### B 12FOL, VITAD, IRON #### [facility] [address] [address] [address] Ekta Funk Glucose [Mass/Vol] 140 mg/dL Normal The [facility] Comment on above: Performed By: #### B 12FOL, VITAD, IRON #### [facility] [address] [address] [address] Ekta Funk HbA1c (Bld) [Mass fraction] 6.5 % Critically high 4.5-6.[address] [facility] Comment on above: Performed By: #### B 12FOL, VITAD, IRON #### [facility] [address] [address] [address] Ekta Funk IRONon 10-18-2022 Iron [Mass/Vol] 62.0 ug/dL Normal 50.0-170.0 [facility] Comment on above: Performed By: #### B 12FOL, VITAD, IRON #### [facility] [address] [place] [address] Dr. Ekta Funk LIPID PROFILEon 10-18-2022 CHOL-HDL RATIO NORM SEE BELOW Normal [facility] Comment on above: Result Comment: 3.3 - 4.4 LOW RISK 4.4 - 7.1 AVERAGE RISK 7.1 - 11.0 MODERATE RISK >11.0 HIGH RISK Performed By: #### C VDTBH #### [facility] [address] [address] [address] Ekta Funk Cholesterol [Mass/Vol] 242 mg/dL Critically high <=200 [facility] Comment on above: Performed By: #### C VDTBH #### [facility] [address] [place] [address] Dr. Ekta Funk Cholesterol in HDL [Mass/Vol] 74 mg/dL Critically high 40-60 [facility] Comment on above: Performed By: #### C VDTBH #### [facility] [address] [address] [address] Ekta Fnuk Cholesterol in LDL [Mass/Vol] 139.4 mg/dL Normal [facility] Comment on above: Performed By: #### C VDTBH #### [facility] [address] [address] [address] Ekta Funk Cholesterol.total/Ch olesterol in HDL [Mass ratio] 3.3 {ratio} Normal [facility] Comment on above: Performed By: #### C VDTBH #### [facility] [address] [address] [address] Ekta Funk HDL NORMAL > or = 60 mg/dl - LO W CARDIOVASCULAR RISK <40 mg/dl - HIGH CARDIOVASCULAR RISK Normal [facility] Comment on above: Performed By: #### C VDTBH #### [facility] [address] [place] [address] Dr. Ekta Funk LDL CALC NORMAL SEE BELOW Normal [facility] Comment on above: Result Comment: <100 mg/dl OPTIMAL 100 - 129 mg/dl NEAR OR ABOVE OPTIMAL 130 - 159 mg/dl BORDERLINE HIGH 160 - 189 mg/dl HIGH >190 mg/dl VERY HIGH Performed By: #### C VDTBH #### [facility] [address] [place] [address] Dr. Ekta Funk Triglyceride [Mass/Vol] 143 mg/dL Normal <=[address] [facility] Comment on above: Performed By: #### C VDTBH #### [facility] [address] [place] [address] Dr. Ekta Funk VLDL CALC 28.6 mg/dL Normal [facility] Comment on above: Performed By: #### C VDTBH #### [facility] [address] [place] [address] Dr. Ekta Funk PROF 14(COMP METB)on 023 Albumin [Mass/Vol] 2.8 g/dL Critically low 3.4-5.0 [facility] Comment on above: Performed By: #### C VDTBH #### [facility] [address] [address] [address] Ekta Funk Albumin/Globulin [Mass ratio] 0.7 {ratio} Normal [facility] Comment on above: Performed By: #### C VDTBH #### [facility] [address] [address] [address] Ekta Funk ALP [Catalytic activity/Vol] 90 U/L Normal 46-[address] [facility] Comment on above: Performed By: #### C VDTBH #### [facility] [address] [address] [address] Ekta Funk ALT [Catalytic activity/Vol] 26 U/L Normal 14-[address] [facility] Comment on above: Performed By: #### C VDTBH #### [facility] [address] [place] [address] Dr. Ekta Funk Anion gap [Moles/Vol] 14.5 mmol/L Normal [facility] Comment on above: Performed By: #### C VDTBH #### [facility] [address] [place] [address] Dr. Ekta Funk AST [Catalytic activity/Vol] 14 U/L Critically low 15-[address] [facility] Comment on above: Performed By: #### C VDTBH #### [facility] [address] [place] [address] Dr. Ekta Funk Bilirubin [Mass/Vol] 0.4 mg/dL Normal 0.2-1.[address] [facility] Comment on above: Performed By: #### C VDTBH #### [facility] [address] [place] [address] Dr. Ekta Funk Calcium [Mass/Vol] 8.9 mg/dL Normal 8.5-10.1 The [facility] Comment on above: Performed By: #### C VDTBH #### [facility] [address] [address] [address] Ekta Funk Chloride [Moles/Vol] 106 mmol/L Normal 98-[address] [facility] Comment on above: Performed By: #### C VDTB #### [facility] [address] [address] [address] Ekta Funk CO2 [Moles/Vol] 23.5 mmol/L Normal 21.0-32.0 [facility] Comment on above: Performed By: #### C VDTBH #### [facility] [address] [address] [address] Ekta Funk Creatinine [Mass/Vol] 1.70 mg/dL Critically high 0.55-1.[address] [facility] Comment on above: Performed By: #### C VDTBH #### [facility] [address] [address] [address] Ekta Funk EGFR-AF CYMRO 36 mL/min/1.73m2 Critically low >=[address] [facility] Comment on above: Performed By: #### C VDTBH #### [facility] [address] [place] [address] Dr. Ekta Funk EGFR-NON AF CYMRO 29 mL/min/1.73m2 Critically low >=[address] [facility] Comment on above: Performed By: #### C VDTBH #### [facility] [address] [address] [address] Ekta Funk Globulin (S) [Mass/Vol] 4.0 g/dL Normal [facility] Comment on above: Performed By: #### C VDTBH #### [facility] [address] [place] [address] Dr. Ekta Funk Glucose [Mass/Vol] 99 mg/dL Normal 74-106 The [facility] Comment on above: Performed By: #### C VDTBH #### [facility] [address] [address] [address] Ekta Funk Potassium [Moles/Vol] 5.0 mmol/L Normal 3.5-5.1 [facility] Comment on above: Performed By: #### C VDTBH #### [facility] [address] [address] [address] Ekta Funk Protein [Mass/Vol] 6.8 g/dL Normal 6.4-8.2 The [facility] Comment on above: Performed By: #### C VDTBH #### [facility] [address] [place] [address] Dr. Ekta Funk Sodium [Moles/Vol] 139 mmol/L Normal 136-145 [facility] Comment on above: Performed By: #### C VDTBH #### [facility] [address] [place] [address] Dr. Ekta Funk Urea nitrogen [Mass/Vol] 36.0 mg/dL Critically high 7.0-18.[address] [facility] Comment on above: Performed By: #### C VDTBH #### [facility] [address] [place] [address] Dr. Ekta Funk Urea nitrogen/Creatinine [Mass ratio] 21.2 mg/mg Normal [facility] Comment on above: Performed By: #### C VDTBH #### [facility] [address] [place] [address] Dr. Ekta Funk TSHon 10-18-2022 TSH 0.910 uIU/mL Normal 0.358-3.740 [facility] Comment on above: Performed By: #### C VDTBH #### [facility] [address] [place] [address] Dr. Ekta Funk Covid-19 PCR ([facility])on 09-10 SARS-CoV-2 (COVID-19) RNA GANESH+probe Ql (Unsp spec) Detected Abnormal NOT DETECTED [facility] Comment on above: Result Comment: This test is not yet approved or cleared by the [place] FDA. When there are no FDA-approved or cleared tests available, and other criteria are met, FDA can make tests available under an emergency access mechanism called an Emergency Use Authorization (EUA). The EUA for this test is supported by the [place] of [employer] and Human Service's declaration that [...] used). Performed By: #### C MP #### [facility] [address] [place] [address] Dr. Ekta Funk INFLUENZA A AND B AGon 09-25 [facility] SEE BELOW Normal [facility] Comment on above: Result Comment: Nega tive for Flu A protein angiten. Infection due to Flu A cannot be ruled out. Flu A angiten in the sample may be below the detection limit of the test. Performed By: #### B 12FOL, VITAD, IRON #### [facility] [address] [place] [address] Dr. Ekta Funk [facility] SEE BELOW Normal [facility] Comment on above: Result Comment: Nega tive for Flu B protein antigen. Infection due to Flu B cannot be ruled out. Flu B antigen in the sample may be below the detection limit of the test. Performed By: #### B 12FOL, VITAD, IRON #### [facility] [address] [place] [address] Dr. Ekta Funk INFLUENZA A AG Negative Normal NEGATIVE SEE COMMENT [facility] Comment on above: Performed By: #### B 12FOL, VITAD, IRON #### [facility] [address] [place] [address] Dr. Ekta Funk INFLUENZA B AG Negative Normal NEGATIVE SEE COMMENT [facility] Comment on above: Performed By: #### B 12FOL, VITAD, IRON #### [facility] [address] [place] [address] Dr. Ekta Funk US CAROTID ART BILon [...] BECK Date: 2022-05-26 16:[address] [facility] MRI BRAIN WO CONon 2 MRI [...] by: DANIEL MARIE Date: 2022-05-25 10:[address] [facility] ECHOCARDIO M/2D COMPLETEon 0 05-24-2022 ECHOCARDIO M/2D COMPLETE Patient: SHEILA MAC Exam Date: 05/24/2022 : 1950 Gender:F Ordering : DR KRZYSZTOF HARP . Admission #: [id number] Family : Order #: [id number] CLICK HERE TO VIEW EXAM ECHOCARDIOGRAM REPORT [...] M.D. on 05/24/2022 at 14:45 Normal [facility] BASIC METABOLIC PANELon - Calcium mass conc 9.4 mg/dL Normal 8.6-10.3 The [facility] Comment on above: Order Comment: No: D o not add to previous draw Performed By: #### 0 0071 #### [facility] [address] [place] [address], [place] Chloride molar conc 108 mmol/L High 98-107 The [facility] Comment on above: Order Comment: No: D o not add to previous draw Performed By: #### 0 0071 #### [facility] [address] [place] [address], [place] CO2 molar conc 22 mmol/L Normal 21-31 The [facility] Comment on above: Order Comment: No: D o not add to previous draw Performed By: #### 0 0071 #### [facility] [address] [place] [address], [place] Creatinine mass conc 1.18 mg/dL Normal 0.60-1.20 [facility] Comment on above: Order Comment: No: D o not add to previous draw Performed By: #### 0 0071 #### [facility] [address] [place] [address], [place] GFR/1.73 sq M predicted among blacks MDRD vol rate/area (S/P/Bld) 55 ml/min/1.73sq m Abnormal >60 The [facility] Comment on above: Order Comment: No: D o not add to previous draw Performed By: #### 0 0071 #### [facility] [address] [place] [address], [place] GFR/1.73 sq M predicted among non-blacks MDRD vol rate/area (S/P/Bld) 45 ml/min/1.73sq m Abnormal >60 The [facility] Comment on above: Order Comment: No: D o not add to previous draw Performed By: #### 0 0071 #### [facility] [address] [place] [address], [facility] Glucose mass conc 166 mg/dL High 70-100 The [facility] Comment on above: Order Comment: No: D o not add to previous draw Performed By: #### 0 0071 #### [facility] [address] [place] [id number], [facility] Potassium molar conc 4.1 mmol/L Normal 3.5-5.1 [facility] Comment on above: Order Comment: No: D o not add to previous draw Performed By: #### 0 0071 #### [facility] [address] [place] [address], [facility] Sodium molar conc 140 mmol/L Normal 136-145 The [facility] Comment on above: Order Comment: No: D o not add to previous draw Performed By: #### 0 0071 #### [facility] [address] [place] [address], [facility] Urea nitrogen mass conc 21 mg/dL Normal 7-25 [facility] Comment on above: Order Comment: No: D o not add to previous draw Performed By: #### 0 0071 #### [facility] [address] [place] [address], [facility] CBC COMPLETE BLOOD COUNTon 0 - Erythrocyte distribution width Ratio (RBC) 12.9 % Normal 11.5-15.0 [facility] Comment on above: Order Comment: No: D o not add to previous draw Performed By: #### 5 [id number] #### [facility] [address] [place] [id number], [facility] Hematocrit Volume Fraction (Bld) 36.7 % Normal 36.0-45.0 [facility] Comment on above: Order Comment: No: D o not add to previous draw Performed By: #### 5 [id number] #### [facility] [address] [place] [address], [facility] Hemoglobin mass conc (Bld) 12.4 g/dL Normal 12.0-15.0 [facility] Comment on above: Order Comment: No: D o not add to previous draw Performed By: #### 5 [id number] #### [facility] [address] [place] [address], [facility] MCH Entitic mass (RBC) 31.2 pg Normal 27.0-33.0 [facility] Comment on above: Order Comment: No: D o not add to previous draw Performed By: #### 5 [id number] #### [facility] [address] [place] [address], [facility] MCHC mass conc (RBC) 33.8 g/dL Normal 32.0-35.0 [facility] Comment on above: Order Comment: No: D o not add to previous draw Performed By: #### 5 [id number] #### [facility] [address] [place] [address], [facility] MCV Entitic volume (RBC) 92.4 fL Normal 82.0-98.0 [facility] Comment on above: Order Comment: No: D o not add to previous draw Performed By: #### 5 [id number] #### [facility] [address] [place] [address], [facility] Nucleated RBC/100 WBC Ratio (Bld) 0 % Normal 0-0 [facility] Comment on above: Order Comment: No: D o not add to previous draw Performed By: #### 5 [id number] #### [facility] [address] [place] [address], [facility] PLAT CNT 227 10*3/uL Normal 150-400 The [facility] Comment on above: Order Comment: No: D o not add to previous draw Performed By: #### 5 0608 #### [facility] [address] [facility] [place] [address], [facility] RBC #/vol (Bld) 3.97 10*6/uL Normal 3.80-5.00 The [facility] Comment on above: Order Comment: No: D o not add to previous draw Performed By: #### 5 [id number] #### [facility] [address] [facility] [address] WBC #/vol (Bld) 5.55 10*3/uL Normal 4.00-10.60 [facility] Comment on above: Order Comment: No: D o not add to previous draw Performed By: #### 5 [id number] #### [facility] [address] Cardiovascular Lab Reporton 11-20-2018 Cardiovascular Lab Report [facility] MR #: [id number] Department of Physician: Bong Joppa Shellie Gaspar M.D. Division of Service Date: 11/20/2018 Cardiology Birthdate: 1950 Adult Cardiovascular Room #: 3AB [id number] [place] [address] Cardiovascular Laboratory Report INDICATION: The patient is a 68-year-old woman who was evaluated in Cardiology Clinic because of new onset symptoms of shortness of breath on mild exertion. Her stress test showed evidence of gajvp-mz-zutjawvh area of inferoapical ischemia; because of that, she was referred for cardiac catheterization. PROCEDURES: 1. Right heart catheterization. 2. Bilateral selective coronary angiography. 3. Limited right femoral angiography. METHOD: Procedure was explained patient with risks and benefits. She signed informed consent. She was brought to equipment operator/laborer/supervisor in a fasting state. The right groin area was prepped and draped in usual fashion. Using micropuncture technique, the right common femoral artery was accessed. The inner cannula was advanced. Limited femoral angiography was performed followed by upsizing to a 6-Mauritanian x 11 cm sheath. Access was also obtained using the same technique in the right common femoral vein and a 6-Mauritanian x 11 cm sheath was placed. A 6-Mauritanian Michel catheter was used for right heart catheterization with measurement of pressures and calculation of cardiac output using the estimated Ivory method. Michel catheter was removed. Bilateral selective coronary angiography was then performed using 6-Mauritanian JL4 and JR4 diagnostic catheters. Catheters were [...] Gaspar M.D. Date Trans: 11/20/2018 09:31 A/mmo [id number] cc: Krzysztof Harp M.D. [place] [address] [facility] [place] [address] Normal [facility] BASIC METABOLIC PANELon 11-08 Calcium mass conc 9.5 mg/dL Normal 8.6-10.3 [facility] Comment on above: Order Comment: No: D o not add to previous draw Performed By: #### 0 0071 #### [facility] [address] [place] [address], [place] Chloride molar conc 105 mmol/L Normal 98-107 [facility] Comment on above: Order Comment: No: D o not add to previous draw Performed By: #### 0 0071 #### [facility] [address] [place] [address], [place] CO2 molar conc 24 mmol/L Normal 21-31 [facility] Comment on above: Order Comment: No: D o not add to previous draw Performed By: #### 0 0071 #### [facility] [address] [place] [address], [place] Creatinine mass conc 1.42 mg/dL High 0.60-1.20 [facility] Comment on above: Order Comment: No: D o not add to previous draw Performed By: #### 0 0071 #### [facility] [address] [place] [address], [place] GFR/1.73 sq M predicted among blacks MDRD vol rate/area (S/P/Bld) 45 ml/min/1.73sq m Abnormal >60 [facility] Comment on above: Order Comment: No: D o not add to previous draw Performed By: #### 0 0071 #### [facility] [address] [place] [address], [place] GFR/1.73 sq M predicted among non-blacks MDRD vol rate/area (S/P/Bld) 36 ml/min/1.73sq m Abnormal >60 [facility] Comment on above: Order Comment: No: D o not add to previous draw Performed By: #### 0 0071 #### [facility] [address] [place] [address], [facility] Glucose mass conc 86 mg/dL Normal 70-100 [facility] Comment on above: Order Comment: No: D o not add to previous draw Performed By: #### 0 0071 #### [facility] [address] [place] [address], [facility] Potassium molar conc 4.2 mmol/L Normal 3.5-5.1 [facility] Comment on above: Order Comment: No: D o not add to previous draw Performed By: #### 0 0071 #### [facility] [address] [place] [address], [facility] Sodium molar conc 138 mmol/L Normal 136-145 [facility] Comment on above: Order Comment: No: D o not add to previous draw Performed By: #### 0 0071 #### [facility] [address] [place] [address], [facility] Urea nitrogen mass conc 19 mg/dL Normal 7-25 [facility] Comment on above: Order Comment: No: D o not add to previous draw Performed By: #### 0 0071 #### [facility] [address] [place], [place] [address] CBC COMPLETE BLOOD COUNTon 0 - Erythrocyte distribution width Ratio (RBC) 13.0 % Normal 11.5-15.0 [facility] Comment on above: Order Comment: No: D o not add to previous draw Performed By: #### 5 [id number] #### [facility] [address] [place] [address], [facility] Hematocrit Volume Fraction (Bld) 38.3 % Normal 36.0-45.0 [facility] Comment on above: Order Comment: No: D o not add to previous draw Performed By: #### 5 0608 #### [facility] [address] Hemoglobin mass conc (Bld) 12.6 g/dL Normal 12.0-15.0 [facility] Comment on above: Order Comment: No: D o not add to previous draw Performed By: #### 5 [id number] #### [facility] [address] MCH Entitic mass (RBC) 31.1 pg Normal 27.0-33.0 [facility] Comment on above: Order Comment: No: D o not add to previous draw Performed By: #### 5 [id number] #### [facility] [address] MCHC mass conc (RBC) 32.9 g/dL Normal 32.0-35.0 [facility] Comment on above: Order Comment: No: D o not add to previous draw Performed By: #### 5 [id number] #### [facility] [address] MCV Entitic volume (RBC) 94.6 fL Normal 82.0-98.0 [facility] Comment on above: Order Comment: No: D o not add to previous draw Performed By: #### 5 [id number] #### [facility] [address] Nucleated RBC/100 WBC Ratio (Bld) 0 % Normal 0-0 [facility] Comment on above: Order Comment: No: D o not add to previous draw Performed By: #### 5 0608 #### [facility] [address] [place] [address], [facility] PLAT CNT 266 10*3/uL Normal 150-400 [facility] Comment on above: Order Comment: No: D o not add to previous draw Performed By: #### 5 0608 #### [facility] [address] RBC #/vol (Bld) 4.05 10*6/uL Normal 3.80-5.00 [facility] Comment on above: Order Comment: No: D o not add to previous draw Performed By: #### 5 [id number] #### [facility] [address] WBC #/vol (Bld) 9.01 10*3/uL Normal 4.00-10.60 [facility] Comment on above: Order Comment: No: D o not add to previous draw Performed By: #### 5 [id number] #### [facility] [address] [facility] [address] PROTHROMBIN TIMEon 9 INR Coag RelTime (PPP) 1.07 {INR} Normal 0.91-1.16 [facility] Comment on above: Order [...] 1995;108:[id number]. Performed By: #### 5 [id number] #### [facility] [address] [facility]. [address] Prothrombin time (PT) Coag time (PPP) 13.9 s Normal 12.3-14.8 The [facility] Comment on above: Order Comment: No: D o not add to previous draw Result Comment: ALL RESULTS MUST BE INTERPRETED WITH RESPECT TO BLOOD DRAWING ARTIFACT OR DILUTION ERROR OF ANTICOAGULANT AT THE TIME OF SAMPLING. Performed By: #### 5 [id number] #### [facility] [address] Vital Signs Date Time Vital Sign Value Performing Clinician Faci lity 08-11-2024 14:21-0500 Body mass index (BMI) [Ratio] 23.52 kg/m2 Christopher Agency Spotter DO Work Phone: [facility] 08-11-2024 14:21-0500 Body weight 60.24 kg Christopher Agency Spotter DO Work Phone: [facility] 08-11-2024 14:21-0500 Diastolic blood pressure 82 mm[Hg] Christopher Shama DO Work Phone: [facility] 08-11-2024 14:21-0500 Heart rate 79 /min Christopher Shama DO Work Phone: [facility] 08-11-2024 14:21-0500 SaO2% (BldA) [Mass fraction] 97 % Christopher Shama DO Work Phone: [facility] 08-11-2024 14:21-0500 Systolic blood pressure 130 mm[Hg] Christopher Shama DO Work Phone: [facility] 07-14-2024 13:28-0500 Body mass index (BMI) [Ratio] 23.52 kg/m2 Christopher Shama DO Work Phone: [facility] 07-14-2024 13:28-0500 Body weight 60.24 kg Christopher Shama DO Work Phone: [facility] 07-14-2024 13:28-0500 Diastolic blood pressure 101 mm[Hg] Christopher Shama DO Work Phone: [facility] 07-14-2024 13:28-0500 Heart rate 87 /min Christopher Shama DO Work Phone: [facility] 07-14-2024 13:28-0500 SaO2% (BldA) [Mass fraction] 91 % Christopher Shama DO Work Phone: [facility] 07-14-2024 13:28-0500 Systolic blood pressure 155 mm[Hg] Christopher Shama DO Work Phone: [facility] 03-26-2024 11:35-0400 Diastolic blood pressure 106 mm[Hg] MD Krzysztof Harp Work Phone: [facility] 03-26-2024 11:35-0400 Heart rate 76 /min MD Krzysztof Harp Work Phone: [facility] 03-26-2024 11:35-0400 Respiratory rate 18 /min MD Krzysztof Harp Work Phone: [facility] 03-26-2024 11:35-0400 SaO2% (BldA) [Mass fraction] 96 % MD Krzysztof Harp Work Phone: [facility] 03-26-2024 11:35-0400 Systolic blood pressure 152 mm[Hg] MD Krzysztof Harp Work Phone: [facility] 03-26-2024 10:24-0400 Body height 157.48 cm MD Krzysztof Harp Work Phone: [facility] 03-26-2024 10:24-0400 Body weight 62.14 kg MD Krzysztof Harp Work Phone: [facility] 02-19-2024 09:07-0400 Body height 157.48 cm MD Krzysztof Harp Work Phone: [facility] 02-19-2024 09:07-0400 Body mass index (BMI) [Ratio] 24.7 kg/m2 MD Krzysztof Harp Work Phone: [facility] 02-19-2024 09:07-0400 Body weight 61.23 kg MD Krzysztof Harp Work Phone: [facility] 02-19-2024 09:07-0400 Diastolic blood pressure 105 mm[Hg] MD Krzysztof Harp Work Phone: [facility] 02-19-2024 09:07-0400 Heart rate 60 /min MD Krzysztof Harp Work Phone: [facility] 02-19-2024 09:07-0400 Systolic blood pressure 146 mm[Hg] MD Krzysztof Harp Work Phone: [facility] 02-05-2024 13:37-0400 Diastolic blood pressure 47 mm[Hg] MD Krzysztof Harp Work Phone: [facility] 02-05-2024 13:37-0400 Heart rate 78 /min MD Krzysztof Harp Work Phone: [facility] 02-05-2024 13:37-0400 Respiratory rate 16 /min MD Krzysztof Harp Work Phone: [facility] 02-05-2024 13:37-0400 SaO2% (BldA) [Mass fraction] 97 % MD Krzysztof Harp Work Phone: [facility] 02-05-2024 13:37-0400 Systolic blood pressure 122 mm[Hg] MD Krzysztof Harp Work Phone: [facility] 02-05-2024 11:35-0400 Body height 157.48 cm MD Krzysztof Harp Work Phone: [facility] 02-05-2024 11:35-0400 Body temperature 99.1 [degF] MD Krzysztof Harp Work Phone: [facility] 02-05-2024 11:35-0400 Body weight 62.14 kg MD Krzysztof Harp Work Phone: [facility] Encounters Encounter Date Encounter Type Care Provider Facility Start: 08-11-2024 End: 08-11-2024 ambulatory RAVEN SESAY Not Available Start: 08-11-2024 End: 08-11-2024 Office outpatient visit 25 minutes Raven Sesay DO Work Phone: [facility] Comment on above: Left hand pain (Prim pérez Dx); Primary osteoarthritis of hand, unspecified laterality Start: 07-28-2024 End: 07-28-2024 [facility] Start: 07-22-2024 End: 07-22-2024 ambulatory KRZYSZTOF Marmolejo Alison [facility] Start: 07-17-2024 End: 07-17-2024 Bamboo flowsheet Raven Sesay DO Work Phone: [facility] [address] Start: 07-17-2024 End: 07-17-2024 Bamboo flowsheet Raven Sesay DO Work Phone: [facility] Start: 07-17-2024 End: 07-17-2024 Patient encounter procedure [facility] Comment on above: Cervical radiculopat hy (Primary Dx); Paresthesia Start: 07-17-2024 End: 07-17-2024 ambulatory RAVEN SESAY Not Available Start: 07-16-2024 End: 07-16-2024 ambulatory [facility] Start: 07-15-2024 End: 07-15-2024 ambulatory CLEVE SHETH Not Available Start: 07-15-2024 End: 07-15-2024 Office outpatient visit 10 minutes Cleve Sheth DO Work Phone: [facility] Comment on above: Chronic right hip pa in (Primary Dx); Sacral insufficiency fracture with routine healing, subsequent encounter; Closed fracture of multiple pubic rami, right, initial encounter ([facility]) Start: 07-14-2024 End: 07-14-2024 Bamboo flowsheet Raven Sesay DO [facility] Start: 07-14-2024 End: 07-14-2024 Bamboo flowsheet Raven Sesay DO Work Phone: [facility] Start: 07-14-2024 End: 07-14-2024 Office outpatient new 30 minutes Raven Shama DO Work Phone: [facility] [address] Comment on above: Paresthesia (Primary Dx) Start: 07-14-2024 End: 07-14-2024 ambulatory RAVEN SESAY Not Available Start: 06-17-2024 End: 06-17-2024 Bamboo flowsheet Cleve Sheth DO Work Phone: [facility] Start: 06-17-2024 End: 06-17-2024 Bamboo flowsheet Cleve Sheth DO Work Phone: [facility] Start: 06-17-2024 End: 06-17-2024 Office outpatient visit 25 minutes Cleve Sheth DO Work Phone: [facility] Comment on above: Chronic right hip pa in (Primary Dx); Sacral insufficiency fracture, initial encounter ([facility]); Closed fracture of multiple pubic rami, right, initial encounter ([facility]) Start: 06-17-2024 End: 06-17-2024 ambulatory CLEVE SHETH Not Available Start: 06-13-2024 End: 06-13-2024 Emergency department patient visit KRZYSZTOF HARP [facility] Start: 06-12-2024 End: 06-12-2024 ambulatory CLEVE [...] / Non-visit MD Carrie Harp Work Phone: [facility] Work Phone: Start: 03-26-2024 End: 03-26-2024 Admission to same day surgery center MD Krzysztof Harp Work Phone: [facility] Work Phone: Start: 03-26-2024 End: 03-26-2024 ambulatory MD Krzysztof Harp Work Phone: [facility] Work Phone: Start: 02-19-2024 End: 02-19-2024 ambulatory MD Krzysztof Harp Work Phone: [facility] Work Phone: Start: 02-19-2024 End: 02-19-2024 Patient encounter procedure MD Krzysztof Harp Work Phone: [facility] Work Phone: Start: 02-05-2024 Non-patient / Non-visit MD Carrie Harp Work Phone: [facility] Work Phone: Start: 02-05-2024 End: 02-05-2024 Admission to same day surgery center MD Krzysztof Harp Work Phone: [facility] Work Phone: Start: 02-05-2024 End: 02-05-2024 ambulatory MD Krzysztof Harp Work Phone: [facility] Work Phone: Start: 01-16-2024 Non-patient / Non-visit MD Carrie Harp Work Phone: [facility] Work Phone: Start: 01-09-2024 End: 01-09-2024 ambulatory DARSHAN HERNANDEZ Not Available Start: 01-07-2024 ambulatory KRZYSZTOF HARP [facility] Start: 01-16-2023 ambulatory JN AGRCIA . Facility :[facility] Start: 01-15-2023 End: 01-15-2023 ambulatory APRIL CASTANEDA . Facility:[facility] Start: 01-10-2023 End: 01-11-[address] KRZYSZTOF HARP . Facility:[facility] Start: 12-15-2022 End: 12-15-2022 ambulatory APRIL CASTANEDA . Facility:[facility] Start: 12-15-2022 [facility] Start: 12-05-2022 End: 12-06-[address] KRZYSZTOF HARP . Facility:[facility] Start: 11-25-2022 End: 11-27-2022 Evaluation and management of inpatient DR KRZYSZTOF HARP . Facility:[facility] Start: 11-13-2022 End: 11-14-[address] KRZYSZTOF HARP . Facility:[facility] Start: 11-09-2022 End: 11-10-[address] KRZYZSTOF HARP . Facility:[facility] Start: 10-20-2022 End: 10-23-2022 [...] End: 11-20-2018 Patient encounter procedure PROVIDER UNKNOWN Facility:[facility] Start: 11-13-2018 End: 11-14-2018 Patient encounter procedure DEFAULT PHYSICIAN Facility:[facility] Start: 10-31-2018 End: 11-01-2018 Patient encounter procedure DEFAULT PHYSICIAN Facility:[facility] Start: 09-23-2018 End: 09-24-2018 Patient encounter procedure DEFAULT PHYSICIAN Facility:[facility] Start: 09-05-2018 End: 09-06-2018 Patient encounter procedure DEFAULT PHYSICIAN Facility:[facility] Procedures Date Procedure Procedure Detail [...] 08/11/2024 2:15 PM EST Office Visit [facility] [address] [place] [phone] Raven Sesay DO [address] [place] [address] [facility] Start: 07-17-2024 End: 07-17-2024 [facility] Comment on above: Arrived Start: 07-15-2024 End: 07-15-2024 Patient encounter procedure [facility] Start: 07-14-2024 End: 07-14-2025 EMG 1 [facility] EM[facility] 1 [facility] Routine Paresthesia Expected: 07/14/2024, Expires: 07/14/2025 [facility] Work Phone: Comment on above: Expected: 07/14/2024 , Expires: 07/14/2025 Start: 07-14-2024 End: 07-14-2024 [facility] Comment on above: Brachial plexopathy; Ulnar neuropathy of left upper extremity Start: 06-17-2024 End: 06-17-2024 Patient encounter procedure 06/17/2024 1:30 PM EDT Office Visit [facility] [address] [facility] [address] [place] [address] Cleve Sheth DO [address] [facility] [address] [place] [address] Chronic right hip pain (Primary Dx); Sacral insufficiency fracture, initial encounter (CMS/HCC); Closed fracture of multiple pubic rami, right, initial encounter (CMS/HCC) [facility] Comment on above: Chronic right hip pa in (Primary Dx); Sacral insufficiency fracture, initial encounter (CMS/HCC); Closed fracture of multiple pubic rami, right, initial encounter (CMS/HCC) Start: 06-16-2024 End: 06-16-2024 Patient encounter procedure 06/16/2024 12:30 PM EDT Office Visit [facility] [address] [place] [address] Raven Sesay DO [address] [place] [address] [facility] [address] Start: 05-11-2024 Influenza vaccination Influenza Vacc ine (#1) [facility] Start: 03-26-2024 [facility] Start: 02-05-2024 [facility] Patient Education [facility] Work Phone: Immunizations Immunization Date Immunization Notes Care Provider Kimberly flaviopaolo 06-19-2024 influenza virus vacc ine, unspecified formulation Raven Sesay DO Work Phone: [facility] 06-05-2023 Influenza, Seasonal, Quadrivalent, Adjuvanted Cleve Sheth DO Work Phone: [facility] 06-05-2023 influenza virus vacc ine, unspecified formulation Cleve Davisonston DO Work Phone: [facility] 06-12-2022 influenza, high dose seasonal, preservative-free Cleve Sheth DO Work Phone: [facility] 05-30-2022 Influenza, High-dose Seasonal, Quadrivalent, Preservative Free Cleve Sheth DO Work Phone: [facility] 06-15-2021 Influenza, High-dose Seasonal, Quadrivalent, Preservative Free Cleve Meryl DO Work Phone: [facility] 01-10-2021 SARS-CoV-2, Unspecified Amando s Meryl DO Work Phone: [facility] 06-18-2018 influenza, high dose seasonal, preservative-free Cleve Sheth DO Work Phone: [facility] 05-22-2017 influenza, injectabl e, quadrivalent, preservative free Cleve Sheth DO Work Phone: [facility] 06-14-2016 influenza, high dose seasonal, preservative-free Cleve Sheth DO Work Phone: [facility] 06-03-2015 influenza, high dose seasonal, preservative-free Cleve Sheth DO Work Phone: [facility] 09-10-2014 pneumococcal conjuga te vaccine, 13 valent Cleve Sheth DO Work Phone: [facility] 06-10-2014 influenza, seasonal, injectable Cleve Sheth DO Work Phone: [facility] 08-11-2013 zoster vaccine, live Cleve ponce DO Work Phone: [facility] 07-14-2013 pneumococcal polysaccharide vaccine, 23 valent Cleve Sheth DO Work Phone: [facility] 06-30-2013 seasonal influenza, intradermal, preservative free Cleve Sheth DO Work Phone: [facility] Healthcare Payers Date Payer Category Payer Self-pay 2021 Medicare ANTHEM MEDICARE ADVANTAGE ANTHEM MEDICARE ADVANTAGE [id number] 2021-Present [address] [place] [id number] 2021 Medicare (Managed Care) [facility] ADVANTAGE Member Subscriber Plan / Payer (Effective 2021-Present) Name: Bryanrochelle Sheila A Relation to Subscriber: Self Name: Sheila Mac Payer ID: Not on file Group ID: [id number] Type: Not on file Address: [address] [place] [id number] 2015 Medicare [id number] 1959 Unknown [id number] 1950 Unknown [id number] 2..840.1.028319.3.579. 2.647 1948 Unknown [id number] 2..840.1.703310.3.579. 2.647 1948 Unknown [id number] ..840.1.626882.3.579. 2.647 1948 Unknown [id number] 2.16.840.1.605585.3.579. 2.647 1948 Unknown [id number] 2.16.840.1.415944.3.579. 2.647 1948 Unknown [id number] 2.16.840.1.858537.3.579. 2.593 1948 Unknown [id number] 2.16.840.1.084517.3.579. 2.593 1948 Unknown [id number] 2.16.840.1.791944.3.579. 2.593 1948 Unknown [id number] 2.16.840.1.474284.3.579. 2.59 1948 Unknown [id number] 2.16.840.1.014099.3.579. 2.59 1948 Unknown [id number] 2.16.840.1.905872.3.579. 2.593 1948 Unknown [id number] 2.16.840.1.924872.3.579. 2.59 1948 Unknown [id number] 2.16.840.1.050986.3.579. 2.593 1948 Unknown [id number] 2.16.840.1.378599.3.579. 2.593 1948 Unknown [id number] 2.16.840.1.008672.3.579. 2.593 1948 Unknown [id number] 2.16.840.1.410005.3.579. 2.593 1948 Unknown [id number] 2.16.840.1.327969.3.579. 2.593 1948 Unknown [id number] 2.16.840.1.184722.3.579. 2.593 1948 Unknown [id number] 2.16.840.1.436632.3.579. 2.593 1948 Unknown [id number] 2.16.840.1.370556.3.579. 2.593 1948 Unknown [id number] 2.16.840.1.510558.3.579. 2.593 1948 Unknown [id number] 2.16840.1.645417.3.579. 2.593 1948 Unknown [id number] 2.16840.1.185370.3.579. 2.593 1948 Unknown [id number] 2.16840.1.891517.3.579. 2.593 1948 Unknown [id number] 2.840.1.694739.3.579. 2.1285 1948 Unknown [id number] 2.840.1.411261.3.579. 2.1285 1948 Unknown [id number] 2.840.1.379109.3.579. 2.1285 1948 Unknown [id number] 2.840.1.341981.3.579. 2.1285 1948 Unknown [id number] 2.840.1.727321.3.579. 2.128 1948 Unknown [id number] 2.840.1.145912.3.579. 2.128 1948 Unknown [id number] 2.16840.1.013086.3.579. 2.128 1948 Unknown [id number] 2.16840.1.089987.3.579. 2.1259 1948 Unknown [id number] 2.16.840.1.735321.3.579. 2.1259 1948 Unknown [id number] 2.16840.1.438818.3.579. 2.1258 1948 Unknown [id number] 2.16.840.1.607277.3.579. 2.1258 1948 Unknown [id number] 2.16.840.1.528477.3.579. 2.1258 1948 Unknown [id number] 2.16.840.1.323120.3.579. 2.1258 1948 Unknown [id number] 2.16.840.1.089191.3.579. 2.1258 1948 Unknown [id number] 2.16.840.1.982782.3.579. 2.1258 1948 Unknown [id number] 2.16.840.1.181076.3.579. 2.1258 1948 Unknown [id number] 2.16840.1.481113.3.579. 2.1258 1948 Unknown [id number] 2.16.840.1.606030.3.579. 2.1259 Medicare [id number] Unknown Unknown [id number] 2.16840.1.470197.3.579. 2.531 Unknown [id number] 2.16840.1.716773.3.579. 2.531 Social History Date Type Detail Facility Start: 05-04-2023 End: 02-05-2024 Tobacco smoking status MDIS Never smoked tobacco (finding) [facility] Start: 1950 Sex Assigned At Female F [facility] Start: 01-09-2024 End: 07-14-2024 Alcoholic beverage intake Lifetime non-drinker (finding) [facility] Start: 01-09-2024 End: 07-14-2024 History of Social function [facility] Start: 01-09-2024 End: 07-14-2024 Tobacco use panel [facility] Start: 1950 Sex assigned at [...] headaches. Past Medical History: Diagnosis Date Diabetes ([facility]) Diverticulitis Gastric ulcer GERD (gastroesophageal reflux disease) HTN (hypertension) ([facility]) Osteoporosis ([facility]) Pancreatitis Rheumatic fever Past Surgical History: Procedure Laterality Date APPENDECTOMY BACK SURGERY 1991 HEART CATH MAMMOGRAPHY 2013 HYSTERECTOMY Diabetes LUMBAR SPINE SURGERY NECK SURGERY OTHER SURGICAL HISTORY Sigmoid Diverticulosis OTHER SURGICAL HISTORY 2017 perforated ulcer MS ARTHRS KNE SURG W/MENISCECTOMY MED/LAT W/SHVG Right [...] , wrist extensors , wrist flexor , salt washer strength 5/5. LUE Strength deltoid , biceps , triceps , wrist extensors , wrist flexor , salt washer strength 5/5. RLE Strength illopsoas, quadriceps, tibialis [...] reflex 0 . Metzger's sign negative. Coordination: Umuara-ci-fydh testing and rapid alternating movements are normal Gait: Patient ambulates with a walker Review and summary of old records: EMG of the left upper extremity on 07/17/2024: A remote C8 radiculopathy on the left which is duqs-qw-hyowtyku. No evidence of plexopathy or mononeuropathy. Venous [...] and return instructions documented in this encounter [facility] 07-17-2024 History of Presen t illness Narrative Images from the original note were not included. Reason for Appointment: EMG Patient: Sheila Mac : 1950 EMG Computer: [email or web address] Referring Physician: Dr. Raven Sesay EMG: CINTHYA drapery operator: Jarrett Palmer RT(R) Office Location: [place] Reason for EMG: c/o numbness/tingling in left [...] of the test. documented in this encounter [facility] 07-15-2024 History of Presen t illness Narrative Images from the original note were not included. HISTORY OF PRESENT ILLNESS: Sheila Mac is an 74 y.o. @ female. Chief complaint RT hip pain RT hip: using calcitonin NS Pt went to [facility] ER 06/13, X-rays done pelvis and lumbar. RX for lidoderm patches given, she states she could hardly walk. RT hip pain x 3-4 months, worsened on 05/31 after going to the grocery store. Denies injury. She had injections at [facility] in April without relief. She saw Dr Harp 06/02 and 06/04, given IM injections-no relief. She is walking better, using rollator. Mild ache in the thigh. Using pain spray daily Saw Dr Harp 06/02 and 06/04. XR done at [facility] 06/02/24. Using hot icy hot. Given IM torodol, Tramadol RX and PT ordered, XR [place] [facility] 06/05/24, MRI [facility] 06/12/24, [facility] ER 06/13/24, lidoderm patches, calcitonin [...] IMAGING: June 05, 2024 x-rays from the [place] office AP pelvis and lateral of the right hip demonstrate an intact hip joint space. There are no fractures detected. The bone has an osteopenic appearance. The joint spaces are symmetric. There is no obvious effusion or soft tissue swelling. Impression: No acute findings on x-rays of the right hip Hemal Sheth D.O. MRI of the right hip from the [facility] center. There is a sacral insufficiency fracture [...] of multiple pubic rami, right, initial encounter ([facility]) S32.591A calcitonin, salmon, (Miacalcin) 200 UNIT/ACT [...] Sheth/ashley Sheth D.O. documented in this encounter [facility] 07-14-2024 History of Presen t illness [...] Diverticulosis OTHER SURGICAL HISTORY 2017 perforated ulcer MS ARTHRS KNE SURG W/MENISCECTOMY MED/LAT W/SHVG Right [...] , wrist extensors , wrist flexor , salt washer strength 5/5. LUE Strength deltoid , biceps , triceps , wrist extensors , wrist flexor , salt washer strength 5/5. RLE Strength illopsoas, quadriceps, tibialis [...] reflex 0 . Metzger's sign negative. Coordination: Tkylto-by-zgxz testing and rapid alternating movements are normal [...] and return instructions documented in this encounter [facility] 06-17-2024 History of Presen t illness Narrative Images from the original note were not included. HISTORY OF PRESENT ILLNESS: Sheila Mac is an 74 y.o. @ female. Chief complaint RT hip pain RT hip: here for MRI results [facility] 06/12/24 Pt went to [facility] ER 06/13, X-rays done pelvis and lumbar. RX for lidoderm patches given, she states she could hardly walk. RT hip pain x 2-3 months, worsened on 05/31 after going to the grocery store. Denies injury. She had injections at [facility] in April without relief. She saw [...] Harp 06/02 and 06/04. XR done at [facility] 06/02/24. Using hot icy hot. Given IM torodol, Tramadol RX and PT ordered, XR [place] [facility] 06/05/24, MRI [facility] 06/12/24, [facility] ER 06/13/24, lidoderm patches I reviewed notes from [facility] emergency department dated June 13, 2024. Patient [...] HISTORY: Past Medical History: Diagnosis Date Diabetes ([facility]) Diverticulitis Gastric ulcer GERD (gastroesophageal reflux disease) HTN (hypertension) ([facility]) Osteoporosis ([facility]) Pancreatitis Rheumatic fever ALLERGIES: Allergies Allergen [...] IMAGING: June 05, 2024 x-rays from the [place] office AP pelvis and lateral of the right hip demonstrate an intact hip joint space. There are no fractures detected. The bone has an osteopenic appearance. The joint spaces are symmetric. There is no obvious effusion or soft tissue swelling. Impression: No acute findings on x-rays of the right hip Hemal Sheth D.O. I reviewed an MRI of the right hip from the [place] imaging center. There is a sacral insufficiency fracture and suspected insufficiency fractures of the right superior and inferior pubic rami. The right hip joint is intact and there are no fractures in the hip. There is loss of articular cartilage in the right hip consistent with arthritis. ASSESSMENT: ICD-10-CM 1. Chronic right hip pain M25.551 G89.29 2. Sacral insufficiency fracture, initial encounter ([facility]) M84.48XA 3. Closed fracture of multiple pubic rami, right, initial encounter ([facility]) S32.591A calcitonin, salmon, (Miacalcin) 200 UNIT/ACT [...] am acting as scribe for Dr. Sheth/ashley Sheht D.O. documented in this encounter [facility] 06-05-2024 History of Presen t illness Narrative Images from the original note were not included. HISTORY OF PRESENT ILLNESS: Sheila Mac is an 74 y.o. @ female. Chief complaint RT hip pain New problem: RT hip pain. Dr Harp referral. XR [facility] 06/03/24 RT hip pain x 2-3 months, worsened on 05/31 after going to the grocery store. Denies injury. She had injections at [facility] in April without relief. She saw Dr Harp 06/02 and 06/04, given IM injections-no relief. She is having difficulty walking, using a walker. Pain with WB. Pain in the buttock, hamstring and inner thigh. Pain can be aching and sharp. Difficulty with sit to stand. Pain 1/10 at rest, goes to 10+/10 with WB. 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 Taking TYL, using icy hot. Saw Dr Harp 06/02 and 06/04. XR done at [facility] 06/02/24. Using hot icy hot. Given [...] report of the right hip from the [facility] dated May of 2024 slight narrowing [...] Sheth/ashley Sheth D.O. documented in this encounter [facility] 06-05-2024 Telephone encounter Note $40.00 copay / Prior auth needed. [facility] 06-05-2024 Miscellaneous Notes $40.00 copay / Prior auth needed. documented in this encounter [facility] 03-26-2024 Procedure note [facility] 02-05-2024 Procedure note [facility] 12-15-2022 Note Cardiology Follow Up [...] She will be (more content not included)... [facility] 12-15-2022 Note Review of Systems Cardiovascular: Positive for leg swelling. Respiratory: Positive for shortness of breath. Skin: Positive for color change. Neurological: Positive for headaches. All other systems reviewed and are negative. [facility] 07-25-2022 Note PROCEDURE: MRA NECK WO [...] authenticated by: DANIEL MARIE Date: 2022-07-25 13:[address] [facility] 05-11-2022 Note PROCEDURE: XR FOOT L [...] by: DANIEL MARIE Date: 2022-05-11 12:51 [facility] 02-14-2022 Note PROCEDURE: XR KNEE L T 4V or > COMPARISON: None. HISTORY: Osteoarthritis FINDINGS: BONES:No fracture, acute abnormality, or significant arthropathy. SOFT TISSUES:Negative. No visible soft tissue swelling. EFFUSION:Moderate suprapatellar joint effusion OTHER: Negative. IMPRESSION: Moderate joint effusion Electronically authenticated by: GODWIN BECK Date: 2022-02-14 17:30 [facility] Evaluation note No assessment inform ation available [facility] Work Phone: Evaluation note Diagnosis Onset Date Duodenal diverticulum acute Hiatal hernia acute IBS (irritable bowel syndrome) acute Screening for colon cancer a cute [facility] Work Phone: Evaluation note* Diagnosis Chronic right hip pain- Primary Sacral insufficiency fracture, initial encounter ([facility]) Closed fracture of multiple pubic rami, right, initial encounter ([facility]) [facility] Diagnosis Paresthesia- Primary Disturbance of skin sensation documented in this encounter [facility]* Diagnosis Chronic right hip pain- Primary Sacral insufficiency fracture with routine healing, subsequent encounter Closed fracture of multiple pubic rami, right, initial encounter ([facility]) documented in this encounter [facility] [...] HealthcareHistory and physical note Author Ben Sanchez [facility] February 05, 2024 1:08pm Note Date/Time February 05, 2024 1:08p [facility] EN[facility] [address] [place] [address] Gastroenterology H&P Signed Patient: Sheila Mac MR#: [id number] : 1950 Acct:[id number] Age/Sex: 73 / F Adm Date: 4 Loc: Room: Type: [facility] Attending Dr: Ben Sanchez MD Copies to: [...] Ben Sanchez MD> 02/05/24 1308 [facility] Work Phone: History and physical note Author Ben Sanchez [facility] March 26, 2024 10:37am Note Date/Time March 26, 2024 10:3 7am [facility] [address] [place] [address] Gastroenterology H&P Signed Patient: Sheila Mac MR#: [id number] : 1950 Acct:[id number] Age/Sex: 73 / F Adm Date: 4 Loc: Room: Type: [facility] Attending Dr: Ben Sanchez MD Copies to: [...] Ben Sanchez MD> 03/26/24 1037 [facility] Work Phone: [facility] for visit Narrative* Consultation (Routine) - Closed Specialty Diagnoses / Procedures Referred By Contac t Referred To Contact Neurology Diagnoses Brachial plexopathy Ulnar neuropathy of left upper extremity Procedures MS OFFICE/OUTPATIENT NEW HIGH MDM 60 MINUTES Cleve Sheth DO 112 [facility] [address] [place] [address] Phone: tel: fax: Daniel Patiño MD [address] [place] [address] Phone: tel: fax: Referral ID Status Reason Start Date Expiration Date V isits Requested Visits Authorized [id number] Closed Consult and Treat 2024 10/05/2024 1 [...] and content) DATE CREATED AUTHOR 11/24/2018 [facility] DATE CREATED AUTHOR AUTHOR'S ORGANIZ ATION 12/19/2022 [facility] DATE CREATED AUTHOR AUTHOR'S ORGANIZ ATION 01/18/2023 [facility] DATE CREATED AUTHOR AUTHOR'S ORGANIZ ATION 03/29/2024 [facility] DATE CREATED AUTHOR AUTHOR'S ORGANIZ ATION 07/18/2024 [facility] DATE CREATED AUTHOR AUTHOR'S ORGANIZ ATION 08/04/2024 [facility] DATE CREATED AUTHOR AUTHOR'S ORGANIZ ATION 08/12/2024 [facility] dical Specialists EPIC Care Teams [...] Provide r Active Start: March 26, 2024 [facility] Relationship Specialty Start Date End Date Krzysztof Harp MD [address] [place] [address] PCP - General Family Medicine 01/09/24 [facility] Relationship Specialty Start Date End Date Krzysztof Harp MD [address] [facility] [place] [address] PCP - General Family Medicine 01/09/24 [facility] Relationship Specialty Start Date End Date Krzysztof Harp MD [address] [place] [facility] [place] [address] PCP - General Family Medicine 01/09/24 [facility] Relationship Specialty Start Date End Date Krzysztof Harp MD [address] [place] [facility] [place] [address] PCP - General Family Medicine 01/09/24 [facility] Relationship Specialty Start Date End Date Krzysztof Harp MD [address] [place] [address] PCP - General Family Medicine 01/09/24 Raven Sesay DO [address] [address] Referring Physician Neurology 07/14/24 [facility] Relationship Specialty Start Date End Date Krzysztof Harp MD [address] [place] [address] PCP - General Family Medicine 01/09/24 Raven Sesay DO [address] [address] Referring Physician Neurology 07/14/24 [facility] Relationship Specialty Start Date End Date Krzysztof Harp MD [address] [place] [address] PCP - General Family Medicine 01/09/24 Raven Sesay DO [address] [address] Referring Physician Neurology 07/14/24 [facility] Relationship Specialty Start Date End Date Krzysztof Harp MD [address] [place] [address] PCP - General Family Medicine 01/09/24 Raven Sesay DO [address] [address] Referring Physician Neurology 07/14/24 [facility] Relationship Specialty Start Date End Date Krzysztof Harp MD [address] [place] [place] [address] PCP - General Family Medicine 01/09/24 Raven Sesay DO [address] [place] [address] Referring Physician Neurology 07/14/24 Reason for Visit [...] BE BASED ON THE PRIMARY CLINICAL RECORDS. [employer] provides no warranty or guarantee of the accuracy or completeness of information in this document.
--- NOTE | 2024-10-09 11:44 | XR_ITS ---
The [address] [address] Patient Name: EDIN SAMANIEGO MRN: [id number] date: 1950 Sex: F Assigned Patient Location: [facility] Current Patient Location: Accession/Order Number: [id number] Exam Date: 10/09/2024 11:58 Report Date: 10/10/2024 07:03 At the request of: KRZYSZTOF THOMPSON Procedure: XR wrist RT min 3V PROCEDURE: XR wrist RT min 3V, XR hand RT min 3V HISTORY: Acute Right Wrist Pain COMPARISON: None. FINDINGS: BONES:8 mm rounded calcification suspected to be within the anterior medial aspect of the wrist joint proximally between the ulna and hamate bones. Multifocal mild degenerative joint disease. No fracture or dislocation. SOFT TISSUES:No visible soft tissue swelling. EFFUSION:None visible. OTHER: Negative. XR/XR wrist RT min 3V IMPRESSION: 1. Calcified loose bodies suspected to be within the proximal anterior medial aspect of the wrist joint. 2. Multifocal mild degenerative joint disease. Electronically authenticated by: DANIEL PINEDA Date: 10/10/2024 07:03
--- NOTE | 2024-10-09 11:44 | XR_ITS ---
The [address] [address] Patient Name: EDIN SAMANIEGO MRN: [id number] date: 1950 Sex: F Assigned Patient Location: [facility] Current Patient Location: Accession/Order Number: [id number] Exam Date: 10/09/2024 11:58 Report Date: 10/10/2024 07:03 At the request of: KRZYSZTOF THOMPSON Procedure: XR hand RT min 3V PROCEDURE: XR wrist RT min 3V, XR hand RT min 3V HISTORY: Acute Right Wrist Pain COMPARISON: None. FINDINGS: BONES:8 mm rounded calcification suspected to be within the anterior medial aspect of the wrist joint proximally between the ulna and hamate bones. Multifocal mild degenerative joint disease. No fracture or dislocation. SOFT TISSUES:No visible soft tissue swelling. EFFUSION:None visible. OTHER: Negative. XR/XR hand RT min 3V IMPRESSION: 1. Calcified loose bodies suspected to be within the proximal anterior medial aspect of the wrist joint. 2. Multifocal mild degenerative joint disease. Electronically authenticated by: DANIEL PINEDA Date: 10/10/2024 07:03
== END 2024-10-09 11:35 | disposition home or self-care (01) ==
LOC: RAD 11:39
PROVIDERS: PCP Family Medicine; Visit Provider Family Medicine
DX: M25.531 Pain in right wrist (principal); M19.031 Primary osteoarthritis, right wrist
CPT/HCPCS: 73110; 73130

== ENCOUNTER 2024-10-16 15:13 | Inpatient (IN) | payer MEDICARE, SELFPAY ==
[2024-10-16] VITALS (8 sets, daily range): BP systolic 103–158; BP diastolic 71–95; PULSE 85–115; TEMP 36.4–36.8; O2SAT 86–96; BMI 22.3; BMI 21.2
--- NOTE | 2024-10-16 15:38 | XR_ITS ---
The [address] [address] Patient Name: EDIN SAMANIEGO MRN: [id number] date: 1950 Sex: F Assigned Patient Location: ED.MAIN Current Patient Location: ER Accession/Order Number: [id number] Exam Date: 10/16/2024 15:30 Report Date: 10/16/2024 15:57 At the request of: OCTAVIO MEJIA Procedure: XR chest 1V EXAMINATION: XR chest 1V HISTORY: flu COMPARISON: 04/29/2024 TECHNIQUE: Portable FINDINGS: LUNGS: Mild focal infiltrate identified in the right upper lobe marginating the minor fissure. Left lung is clear VASCULATURE: No increased pulmonary vasculature. PLEURA: No pneumothorax, effusion, or pleural thickening. CARDIAC: No cardiomegaly or cardiac silhouette abnormality. MEDIASTINUM: No visible mass or adenopathy. BONES: No fracture or visible bone lesion. OTHER: Retrocardiac opacity, a hiatal hernia is favored XR/XR chest 1V IMPRESSION: Right upper lobe pneumonia Electronically authenticated by: GODWIN BECK Date: 10/16/2024 15:57
--- NOTE | 2024-10-16 16:27 | ED_ITS ---
HPI HPI - General Adult General Chief complaint: Upper Respiratory Infection Stated complaint: Flu Symptoms Time Seen by Provider: 10/16/24 15:21 Mode of arrival: walk-in History of Present Illness HPI narrative: Patient presents to ED complaining of not feeling well. She was sent over by Dr. Harp from his office. In the office she tested positive for influenza A. He said she appears to be dehydrated and may need to be admitted for IV hydration. The patient states she has been feeling completely wiped out. She is on day 3 or 4 of her symptoms. She has been dry heaving and unable to keep fluids down. Patient has had a cough as well. She reports generalized weakness, no abdominal pain just nausea and dry heaving. Patient is alert and oriented answering questions appropriately. Vital signs stable and is in no distress. She is mildly tachycardic Related Data Home Medications ?Medication ?Instructions ?Recorded ?Confirmed aspirin 81 mg tablet,delayed 81 mg PO DAILY 04/17/24 10/16/24 release atorvastatin 20 mg tablet 20 mg PO DAILY 04/17/24 10/16/24 cetirizine 10 mg capsule 10 mg PO DAILY 04/17/24 10/16/24 clopidogrel 75 mg tablet (Plavix) 75 mg PO DAILY 04/17/24 10/16/24 pantoprazole 40 mg tablet,delayed 40 mg PO QPM 04/17/24 10/16/24 release (Protonix) sucralfate 1 gram tablet (Carafate) 1 g PO ACHS 04/17/24 06/27/24 metoprolol tartrate 25 mg tablet 25 mg PO BID 04/29/24 10/16/24 ondansetron 4 mg disintegrating 4 mg PO DAILY PRN nausea and 04/29/24 10/16/24 tablet vomiting tramadol 50 mg tablet 50 mg PO Q8H PRN pain 06/27/24 06/27/24 benzonatate 200 mg capsule 200 mg PO TID PRN cough 10/16/24 10/16/24 gabapentin 100 mg capsule 100 mg PO BID 10/16/24 10/16/24 oseltamivir 75 mg capsule 75 mg PO DAILY 10/16/24 10/16/24 phenazopyridine 200 mg tablet 200 mg PO Q8H 10/16/24 10/16/24 Previous Rx's ?Medication ?Instructions ?Recorded methylprednisolone 4 mg tablets in 4 mg PO DAILY #21 ea 10/18/24 a dose pack (Medrol (Tavares)) tramadol 50 mg tablet 50 mg PO Q8H PRN pain 3 days #9 06/27/24 tabs Allergies Allergy/AdvReac Type Severity Reaction Status Date / Time Iodinated Contrast Media Allergy edema Verified 10/16/24 16:11 levofloxacin (From Levaquin) Allergy Unknown Verified 10/16/24 16:11 Penicillins Allergy Rash Verified 10/16/24 16:11 meloxicam (From Mobic) AdvReac Unknown Verified 10/16/24 16:11 morphine AdvReac Vomiting Verified 10/16/24 16:11 NSAIDS (Non-Steroidal AdvReac gastric Verified 10/16/24 16:11 Anti-Inflamma ulcer Opioid HPI Opioid Management Most Recent Opioid Data: Last Pain Scale 10 06/27/24 09:30 06/27/24 Last ORT Total Score 0 04/29/24 19:10 04/29/24 Last ORT Risk Category Low Risk 04/29/24 19:10 04/29/24 Review of Systems ROS Status of ROS 10 or more systems reviewed and unremark able except as noted in history and below [facility] Medical History (Updated 10/16/24 @ 17:35 by Bridget Naranjo DO) Abdominal pain ?R10.9 - Unspecified abdominal pain (ICD-10) Leukocytosis ?D72.829 - Elevated white blood cell count, unspecified (ICD-10) Acute UTI ?N39.0 - Urinary tract infection, site not specified (ICD-10) H/O: CVA (cerebrovascular accident) ?Z86.73 - Personal history of transient ischemic attack (TIA), and cerebral infarction without residual deficits (ICD-10) Osteoporosis ?M81.0 - Age-related osteoporosis without current pathological fracture (ICD- 10) Arthritis ?M19.90 - Unspecified osteoarthritis, unspecified site (ICD-10) CVA (cerebral vascular accident) ?I63.9 - Cerebral infarction, unspecified (ICD-10) Kidney stone ?N20.0 - Calculus of kidney (ICD-10) Gastric ulcer ?K25.9 - Gastric ulcer, unspecified as acute or chronic, without hemorrhage or perforation (ICD-10) Hiatal hernia ?K44.9 - Diaphragmatic hernia without obstruction or gangrene (ICD-10) GERD (gastroesophageal reflux disease) ?K21.9 - Gastro-esophageal reflux disease without esophagitis (ICD-10) Fibromyalgia ?M79.7 - Fibromyalgia (ICD-10) Diverticulosis ?K57.90 - Diverticulosis of intestine, part unspecified, without perforation or abscess without bleeding (ICD-10) CKD (chronic kidney disease) stage 3, GFR 30-59 ml/min ?N18.30 - Chronic kidney disease, stage 3 unspecified (ICD-10) Borderline diabetes ?R73.03 - Prediabetes (ICD-10) HTN (hypertension) ?I10 - Essential (primary) hypertension (ICD-10) Surgical History (Updated 04/17/24 @ 09:05 by Julieta Martinez) Perforated gastric ulcer ?K25.5 - Chronic or unspecified gastric ulcer with perforation (ICD-10) H/O colonoscopy ?Z98.890 - Other specified postprocedural states (ICD-10) H/O Spinal surgery ?Z98.890 - Other specified postprocedural states (ICD-10) Hx of exploratory laparotomy ?Z98.890 - Other specified postprocedural states (ICD-10) S/P right knee arthroscopy ?Z98.890 - Other specified postprocedural states (ICD-10) History of hysterectomy ?Z90.710 - Acquired absence of both cervix and uterus (ICD-10) History of esophagogastroduodenoscopy ?Z98.890 - Other specified postprocedural states (ICD-10) S/P cystoscopy ?Z98.890 - Other specified postprocedural states (ICD-10) Status post cervical spinal fusion ?Z98.1 - Arthrodesis status (ICD-10) Hx of tubal ligation ?Z98.51 - Tubal ligation status (ICD-10) Hx of appendectomy ?Z90.49 - Acquired absence of other specified parts of digestive tract (ICD- 10) Family History (Updated 04/29/24 @ 17:10 by Elvia Aceves) Mother Family history of cancer Social History (Updated 04/29/24 @ 17:11 by Elvia Aceves) Within the past year, how often did you have a drink containing alcohol: monthly or less Within the past year, how many standard drinks containing alcohol did you have on a typical day: 1 or 2 Within the past year, how often did you have six or more drinks on one occasion: never Total score: 0 Score interpretation: A score less than 3 is consistent with normal alcohol consumption. 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 Known occupational exposures/hazards: No Highest level of school completed/degree received: 9th grade Do you want help with school or training: No Are you now , , , , never or living with a partner: In a typical week, how many times do you talk on the telephone with family, friends, or neighbors: 3 or more times per week How often do you get together with friends or relatives: 3 or more times per week How often do you attend cheondoism or lutheran services: never Do you belong to any clubs or organizations such as cheondoism groups unions, [employer] or athletic groups, or school groups: no Total score: 2 Score interpretation: A score of greater than or equal to 2 indicates the lowest level of social isolation. Little interest or pleasure in doing things: not at all Feeling down, depressed, or hopeless: not at all Feel stressed/tense/nervous/anxious/difficulty sleeping: not at all Due to disability, difficulty making decisions: No Do you think of yourself as: straight/heterosexual Gender Identity: female Exam Narrative Exam Narrative: Time Seen: [] Vital Signs: [Per nurse's notes.] General: [Alert] generalized this Skin: [Warm, dry, no rash.] Head: [Normocephalic, atraumatic.] Neck: [Supple, trachea midline.] Eye: [Pupils are equal, round and reactive to light, extraocular movements are intact, normal conjunctiva.] Ears, nose, mouth and throat: oral mucosa moist. Cardiovascular: [Regular rate and rhythm, no murmur.] Respiratory: [Diminished breath sounds bilateral bases rhonchi in the right side respirations are non-labored, breath sounds are equal.] Chest wall: [No tenderness, no deformity.] Gastrointestinal: [Soft, nontender, non distended, normal bowel sounds.] MSK: 5 out of 5 muscle strength x 4 extremities no calf pain or edema Lymphatics: [No lymphadenopathy.] Psychiatric: [Cooperative, appropriate mood & affect.] Neurological: [Alert and oriented to person, place, time, and situation, no focal neurological deficit observed.] Constitutional Vital Signs, click to edit/add: Last Vital Signs Temp 98.2 F 10/16/24 15:21 Pulse 100 H 10/16/24 16:52 Resp 20 10/16/24 16:52 BP 135/79 10/16/24 16:52 Pulse Ox 92 L 10/16/24 16:52 O2 Del Method Room Air 10/16/24 16:52 Course Vital Signs Vital signs: Vital Signs Temperature 98.2 F 10/16/24 15:21 Pulse Rate 115 H 10/16/24 15:21 Respiratory Rate 18 10/16/24 15:21 Blood Pressure 158/95 H 10/16/24 15:21 Pulse Oximetry 96 10/16/24 15:21 Oxygen Delivery Method Room Air 10/16/24 15:21 Temperature 98.2 F 10/16/24 15:21 Pulse Rate 100 H 10/16/24 16:52 Respiratory Rate 20 10/16/24 16:52 Blood Pressure 135/79 10/16/24 16:52 Pulse Oximetry 92 L 10/16/24 16:52 Oxygen Delivery Method Room Air 10/16/24 16:52 Medical Decision Making MDM Narrative Medical decision making narrative: Patient has right sided pneumonia on the chest x-ray. Patient also has an elevated lactate. Patient was started on Rocephin and Zithromax here in ED. She is also flu a positive and dehydrated. Patient was given IV fluids and will be admitted for further care. I spoke to Dr. Harp who will admit the patient and the patient is comfortable with care plan for admission. She is stable in ED. Differential Diagnosis Differential Diagnosis: Influenza A, pneumonia, sepsis Lab Data Lab results reviewed: Yes I reviewed the patient's lab results Labs: Lab Results 10/16/24 Range/Units 16:18 WBC 9.8 (4.0-11.0) 10^3/uL RBC 4.29 (4.20-5.40) 10^6/uL Hgb 12.9 (12.0-16.0) g/dL Hct 40.4 (36.0-48.0) % MCV 94.2 (81.0-99.0) fL MCH 30.1 (26.7-34.0) pg MCHC 31.9 (29.9-35.2) g/dL RDW 13.4 (11.0-15.0) % Plt Count 262 (150-450) 10^3/uL MPV 9.4 L (9.5-13.5) fL Neut % (Auto) 75.1 H (43.0-75.0) % Lymph % (Auto) 13.7 L (20.5-60.0) % [place] % (Auto) 8.7 (1.7-12.0) % Eos % (Auto) 0.9 (0.9-7.0) % Baso % (Auto) 0.5 (0.2-2.0) % Neut # (Auto) 7.4 H (1.4-6.5) 10^3/uL Lymph # (Auto) 1.3 (1.2-3.8) 10^3/uL [place] # (Auto) 0.9 H (0.3-0.8) 10^3/uL Eos # (Auto) 0.1 (0.0-0.7) 10^3/uL Baso # (Auto) 0.1 (0.0-0.1) 10^3/uL Abs Immat Gran (auto) 0.11 H (0.00-0.03) 10^3/uL Imm/Tot Granulo (auto) 1.1 H (0.0-0.5) % Sodium 138 (136-145) mmol/L Potassium 4.8 (3.5-5.1) mmol/L Chloride 102 (98-107) mmol/L Carbon Dioxide 19.2 L (21.0-32.0) mmol/L Anion Gap 21.6 BUN 34.0 H (7.0-18.0) mg/dL Creatinine 2.73 H (0.55-1.02) mg/dL Est GFR ( Amer) 21 L (>=60 mL/min/1.73m^2) Est GFR (Non-Af Amer) 17 L (>=60 mL/min/1.73m^2) BUN/Creatinine Ratio 12.5 Glucose 125 H (74-106) mg/dL Lactate 2.4 H* (0.4-2.0) mmol/L Calcium 9.3 (8.5-10.1) mg/dL Total Bilirubin 0.5 (0.2-1.0) mg/dL AST 31 (15-37) U/L ALT 18 (14-59) U/L Alkaline Phosphatase 126 H (46-116) U/L Total Protein 8.1 (6.4-8.2) g/dL Albumin 2.9 L (3.4-5.0) g/dL Globulin 5.2 g/dL Albumin/Globulin Ratio 0.6 Imaging Data Chest x-ray: Radiologist's impression: ITS Impressions Chest X-Ray 10/16/24 15:38 IMPRESSION: Right upper lobe pneumonia Electronically authenticated by: GODWIN BECK Date: 10/16/2024 15:57 Discharge Plan Discharge Chief Complaint: Upper Respiratory Infection Clinical Impression: Influenza, Pneumonia, Sepsis Patient Disposition: Admitted As Inpatient Time of Disposition Decision: 17:35 Condition: Fair Prescriptions / Home Meds: No Action aspirin 81 mg tablet,delayed release (DR/EC) 81 mg PO DAILY atorvastatin 20 mg tablet 20 mg PO DAILY sucralfate [Carafate] 1 gram tablet 1 g PO ACHS cetirizine 10 mg capsule 10 mg PO DAILY clopidogrel [Plavix] 75 mg tablet 75 mg PO DAILY pantoprazole [Protonix] 40 mg tablet,delayed release (DR/EC) 40 mg PO QPM metoprolol tartrate 25 mg tablet 25 mg PO BID ondansetron 4 mg tablet,disintegrating 4 mg PO DAILY PRN (Reason: nausea and vomiting) benzonatate 200 mg capsule 200 mg PO TID PRN (Reason: cough) gabapentin 100 mg capsule 100 mg PO BID oseltamivir 75 mg capsule 75 mg PO DAILY phenazopyridine 200 mg tablet 200 mg PO Q8H tramadol 50 mg tablet 50 mg PO Q8H PRN (Reason: pain) methylprednisolone [Medrol (Tavares)] 4 mg tablets,dose pack 4 mg PO DAILY Qty: 21 0RF Rx Instructions: please take as instructed by medrol dose pack tramadol 50 mg tablet 50 mg PO Q8H PRN (Reason: pain) 3 Days Qty: 9 0RF Print Language: Kyrgyz Referrals: Alvaro Harp MD [Primary Care Provider] - 1 week
[2024-10-16 16:35] LABS: Basophils Absolute Auto 0.1 10^3/uL (0.0-0.1); Basophils Percent Auto 0.5 % (0.2-2.0); Eosinophils Absolute Auto 0.1 10^3/uL (0.0-0.7); Eosinophils Percent Auto 0.9 % (0.9-7.0); Hematocrit 40.4 % (36.0-48.0); Hemoglobin 12.9 g/dL (12.0-16.0); Immature Granulocytes Abs Auto 0.11 10^3/uL (0.00-0.03); Immature Granulocytes Pct Auto 1.1 % (0.0-0.5); Lymphocytes Absolute Auto 1.3 10^3/uL (1.2-3.8); Lymphocytes Percent Auto 13.7 % (20.5-60.0); Mean Corpuscular HGB Conc 31.9 g/dL (29.9-35.2); Mean Corpuscular Hemoglobin 30.1 pg (26.7-34.0); Mean Corpuscular Volume 94.2 fL (81.0-99.0); Mean Platelet Volume 9.4 fL (9.5-13.5); Monocytes Absolute Auto 0.9 10^3/uL (0.3-0.8); Monocytes Percent Auto 8.7 % (1.7-12.0); Neutrophils Absolute Auto 7.4 10^3/uL (1.4-6.5); Neutrophils Percent Auto 75.1 % (43.0-75.0); Platelet Count 262 10^3/uL (150-450); Red Blood Count 4.29 10^6/uL (4.20-5.40); Red Cell Distribution Width 13.4 % (11.0-15.0); White Blood Count 9.8 10^3/uL (4.0-11.0)
[2024-10-16] MEDS: 0.9 % SODIUM CHLORIDE 1,000 ML 1000 ML IV (16:45)
[2024-10-16] MEDS: ONDANSETRON PF 4 MG/2 ML VIAL IV (16:46)
[2024-10-16] MEDS: CEFTRIAXONE 1,000 MG in 0.9 % SODIUM CHLORIDE 50 ML 100 MG IV (16:48)
[2024-10-16 17:05] LABS: Alanine Aminotransferase 18 U/L (14-59); Albumin Globulin Ratio 0.6; Albumin Level 2.9 g/dL (3.4-5.0); Alkaline Phosphatase 126 U/L (46-116); Anion Gap 21.6; Aspartate Amino Transferase 31 U/L (15-37); BUN Creatinine Ratio 12.5; Bilirubin Total 0.5 mg/dL (0.2-1.0); Calcium 9.3 mg/dL (8.5-10.1); Carbon Dioxide 19.2 mmol/L (21.0-32.0); Chloride 102 mmol/L (98-107); Estimated GFR (African America 21 (>=60 mL/min/1.73m^2); Estimated GFR (Non-African Ame 17 (>=60 mL/min/1.73m^2); Globulin 5.2 g/dL; Glucose 125 mg/dL (74-106); Potassium 4.8 mmol/L (3.5-5.1); Sodium 138 mmol/L (136-145); Total Protein 8.1 g/dL (6.4-8.2)
[2024-10-16 17:12] LABS: Lactate/Lactic Acid 2.4 mmol/L (0.4-2.0)
[2024-10-16] MEDS: AZITHROMYCIN 500 MG in 0.9 % SODIUM CHLORIDE 250 ML 250 MG IV (17:30)
--- NOTE | 2024-10-16 17:56 | P.HP_ITS ---
HPI H&P: HPI History of Present Illness Chief complaint: Flu Symptoms Narrative: Patient presented the emergency room after a visit at my office, patient had hyperemesis in the office, found to be influenza A positive, in ER found to have right upper lobe pneumonia as well, patient was admitted for workup and treatment of same plus dehydration Opioid HPI Opioid Management Most Recent Pain and Opioid Data: Last Pain Scale 10 06/27/24 09:30 06/27/24 Last ORT Total Score 0 04/29/24 19:10 04/29/24 Last ORT Risk Category Low Risk 04/29/24 19:10 04/29/24 Review of Systems ROS Status of ROS 10 or more systems reviewed and unremark able except as noted in history and below [facility] Medical History (Updated 10/16/24 @ 17:35 by Bridget Naranjo DO) Abdominal pain ?R10.9 - Unspecified abdominal pain (ICD-10) Leukocytosis ?D72.829 - Elevated white blood cell count, unspecified (ICD-10) Acute UTI ?N39.0 - Urinary tract infection, site not specified (ICD-10) H/O: CVA (cerebrovascular accident) ?Z86.73 - Personal history of transient ischemic attack (TIA), and cerebral infarction without residual deficits (ICD-10) Osteoporosis ?M81.0 - Age-related osteoporosis without current pathological fracture (ICD- 10) Arthritis ?M19.90 - Unspecified osteoarthritis, unspecified site (ICD-10) CVA (cerebral vascular accident) ?I63.9 - Cerebral infarction, unspecified (ICD-10) Kidney stone ?N20.0 - Calculus of kidney (ICD-10) Gastric ulcer ?K25.9 - Gastric ulcer, unspecified as acute or chronic, without hemorrhage or perforation (ICD-10) Hiatal hernia ?K44.9 - Diaphragmatic hernia without obstruction or gangrene (ICD-10) GERD (gastroesophageal reflux disease) ?K21.9 - Gastro-esophageal reflux disease without esophagitis (ICD-10) Fibromyalgia ?M79.7 - Fibromyalgia (ICD-10) Diverticulosis ?K57.90 - Diverticulosis of intestine, part unspecified, without perforation or abscess without bleeding (ICD-10) CKD (chronic kidney disease) stage 3, GFR 30-59 ml/min ?N18.30 - Chronic kidney disease, stage 3 unspecified (ICD-10) Borderline diabetes ?R73.03 - Prediabetes (ICD-10) HTN (hypertension) ?I10 - Essential (primary) hypertension (ICD-10) Surgical History (Updated 04/17/24 @ 09:05 by Julieta Martinez) Perforated gastric ulcer ?K25.5 - Chronic or unspecified gastric ulcer with perforation (ICD-10) H/O colonoscopy ?Z98.890 - Other specified postprocedural states (ICD-10) H/O Spinal surgery ?Z98.890 - Other specified postprocedural states (ICD-10) Hx of exploratory laparotomy ?Z98.890 - Other specified postprocedural states (ICD-10) S/P right knee arthroscopy ?Z98.890 - Other specified postprocedural states (ICD-10) History of hysterectomy ?Z90.710 - Acquired absence of both cervix and uterus (ICD-10) History of esophagogastroduodenoscopy ?Z98.890 - Other specified postprocedural states (ICD-10) S/P cystoscopy ?Z98.890 - Other specified postprocedural states (ICD-10) Status post cervical spinal fusion ?Z98.1 - Arthrodesis status (ICD-10) Hx of tubal ligation ?Z98.51 - Tubal ligation status (ICD-10) Hx of appendectomy ?Z90.49 - Acquired absence of other specified parts of digestive tract (ICD- 10) Family History (Updated 04/29/24 @ 17:10 by Elvia Aceves) Mother Family history of cancer Social History (Updated 04/29/24 @ 17:11 by Elvia Aceves) Within the past year, how often did you have a drink containing alcohol: monthly or less Within the past year, how many standard drinks containing alcohol did you have on a typical day: 1 or 2 Within the past year, how often did you have six or more drinks on one occasion: never Total score: 0 Score interpretation: A score less than 3 is consistent with normal alcohol consumption. 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 Known occupational exposures/hazards: No Highest level of school completed/degree received: 9th grade Do you want help with school or training: No Are you now , , , , never or living with a partner: In a typical week, how many times do you talk on the telephone with family, friends, or neighbors: 3 or more times per week How often do you get together with friends or relatives: 3 or more times per week How often do you attend oriental orthodox or christian services: never Do you belong to any clubs or organizations such as oriental orthodox groups unions, [employer] or athletic groups, or school groups: no Total score: 2 Score interpretation: A score of greater than or equal to 2 indicates the lowest level of social isolation. Little interest or pleasure in doing things: not at all Feeling down, depressed, or hopeless: not at all Feel stressed/tense/nervous/anxious/difficulty sleeping: not at all Due to disability, difficulty making decisions: No Do you think of yourself as: straight/heterosexual Gender Identity: female Meds Home Medications and Allergies Home Medications ?Medication ?Instructions ?Recorded ?Confirmed ?Type aspirin 81 mg tablet,delayed 81 mg PO DAILY 04/17/24 10/16/24 History release atorvastatin 20 mg tablet 20 mg PO DAILY 04/17/24 10/16/24 History cetirizine 10 mg capsule 10 mg PO DAILY 04/17/24 10/16/24 History clopidogrel 75 mg tablet (Plavix) 75 mg PO DAILY 04/17/24 10/16/24 History pantoprazole 40 mg tablet,delayed 40 mg PO QPM 04/17/24 10/16/24 History release (Protonix) sucralfate 1 gram tablet (Carafate) 1 g PO ACHS 04/17/24 06/27/24 History metoprolol tartrate 25 mg tablet 25 mg PO BID 04/29/24 10/16/24 History ondansetron 4 mg disintegrating 4 mg PO DAILY PRN nausea and 04/29/24 10/16/24 History tablet vomiting methylprednisolone 4 mg tablets in 4 mg PO DAILY #21 ea 06/27/24 Rx a dose pack (Medrol (Tavares)) tramadol 50 mg tablet 50 mg PO Q8H PRN pain 06/27/24 06/27/24 History tramadol 50 mg tablet 50 mg PO Q8H PRN pain 3 days #9 06/27/24 Rx tabs benzonatate 200 mg capsule 200 mg PO TID PRN cough 10/16/24 10/16/24 History gabapentin 100 mg capsule 100 mg PO BID 10/16/24 10/16/24 History oseltamivir 75 mg capsule 75 mg PO DAILY 10/16/24 10/16/24 History phenazopyridine 200 mg tablet 200 mg PO Q8H 10/16/24 10/16/24 History Allergies Allergy/AdvReac Type Severity Reaction Status Date / Time Iodinated Contrast Media Allergy edema Verified 10/16/24 16:11 levofloxacin (From Levaquin) Allergy Unknown Verified 10/16/24 16:11 Penicillins Allergy Rash Verified 10/16/24 16:11 meloxicam (From Mobic) AdvReac Unknown Verified 10/16/24 16:11 morphine AdvReac Vomiting Verified 10/16/24 16:11 NSAIDS (Non-Steroidal AdvReac gastric Verified 10/16/24 16:11 Anti-Inflamma ulcer Exam Constitutional Vital Signs, click to edit/add: Last Vital Signs Temp 98.2 F 10/16/24 15:21 Pulse 100 H 10/16/24 16:52 Resp 20 10/16/24 16:52 BP 135/79 10/16/24 16:52 Pulse Ox 92 L 10/16/24 16:52 O2 Del Method Room Air 10/16/24 16:52 Documenting provider has reviewed patient's vital signs: yes Common normals: no apparent distress Lymph Lymphatic: no lymphadenopathy noted Chest Common normals: inspection of chest normal Respiratory Common normals: abnormal respiratory effort (Somewhat tachypneic, with severe cough throughout the evaluation) Auscultation: rhonchi and wheezes Cardio Common normals: regular rhythm; irregular rate Rate: tachycardic Extremity Common normals: normal to inspection and full ROM Results Labs Labs: Short CBC 10/16/24 Range/Units 16:18 WBC 9.8 (4.0-11.0) 10^3/uL Hgb 12.9 (12.0-16.0) g/dL Hct 40.4 (36.0-48.0) % Plt Count 262 (150-450) 10^3/uL BMP 10/16/24 16:18 Sodium 138 Potassium 4.8 Chloride 102 Carbon Dioxide 19.2 L BUN 34.0 H Creatinine 2.73 H Glucose 125 H Calcium 9.3 Liver Function 10/16/24 Range/Units 16:18 Total Bilirubin 0.5 (0.2-1.0) mg/dL AST 31 (15-37) U/L ALT 18 (14-59) U/L Alkaline Phosphatase 126 H (46-116) U/L Albumin 2.9 L (3.4-5.0) g/dL Assessment and Plan Assessment and Plan (1) Sepsis: (2) Pneumonia: (3) Influenza: (4) Metatarsalgia: Plan Admission findings: Patient with tachycardia, respiratory distress, lactic acidosis, right upper lobe pneumonia and positive influenza A. This is led to patient to have sepsis. Blood cultures, urine culture, sputum culture pending, unable to give aggressive fluid resuscitation secondary to a history of acute combined congestive heart failure Right upper lobe pneumonia-IV antibiotics, aerosol treatments, 1 dose of steroids. Influenza A-1 dose of steroid as outlined above, plus Tamiflu Dehydration-IV fluids, need to be gentle due to history of acute combined congestive heart failure Acute kidney injury stage I-patient baseline creatinine on her routine workup is 1.6, creatinine admission is 2.73, decreased urine output over the last 6 hours, this 170% above her baseline, this would put her at stage I Coronary artery disease-check high-sensitivity troponin and BNP Hypertension-continue with home medications GERD-IV Protonix, maintain Carafate Generalized arthralgias-tramadol for pain control Admission status: Patient admitted to inpatient status with right upper lobe pneumonia, sepsis, influenza A positive, medically necessary treatment will span 2 midnights. Inpatient status.
--- OUTSIDE RECORDS SUMMARY | 2024-10-16 18:22 | XMS_ITS | CCD ---
Author Organization [facility] Care Team Providers Care Customer Experience Manager Name Role Phone PHYSICIAN, DEFAULT Admitting [...] Unavailable HOY ., DR BLANKENSHIP Admitting Unavailable HAPPY, DR GODWIN Cardona Consulting Unavailable HOY ., DR BLANKENSHIP Consulting Unavailable HOY ., DR BLANKENSHIP Attending Unavailable HOY ., DR BLANKENSHIP Primary Care Unavailable HOY ., DR BLANKENSHIP Admitting Unavailable ZIEBER, DR DANIEL Earzo Consulting Unavailable CHRISTIANO MORALES Consulting Unavailable HOY [...] Consulting Unavailable LEONEL ., APRIL Consulting Unavailable LOENEL ., APRIL Admitting Unavailable LEONEL ., APRIL Attending Unavailable MARIOY ., DR BLANKENSHIP Primary Care Unavailable HOY ., DR BLANKENSHIP Admitting Unavailable HOY ., DR BLANKENSHIP Consulting Unavailable HOY ., DR BLANKENSHIP Attending Unavailable HOY ., DR BLANKENSHIP Primary Care Unavailable MD Ben Sanchez Attending Provider [phone] MD Krzysztof Harp Primary Care Provider [phone] Ben Sanchez Admitting Unavailable Ben Sanchez Attending Unavailable Marioy, Krzysztof M Primary Care Unavailable Ben Sanchez Admitting Unavailable Ben Sanchez Attending Unavailable Marioy, Krzysztof M Primary Care Unavailable Krzysztof Harp MD Primary Care Provider [phone] Raven Sesay DO Unavailable [phone] KRZYSZTOF HARP Referring Unavailable HOY, KRZYSZTOF M [...] Translations: [MORPHINE] Drug Allergy 7 Vomiting [facility] (5 sources) NSAIDs; Translations: [NSAIDS (NON-STEROIDAL ANTI-INFLAMMATOR Y DRUG)] Drug allergy (disorder) 9 [facility] (1 source) Penicillin Drug Allergy 9 [facility] (1 source) predniSONE Drug Allergy 9 [facility] (2 sources) Iodinated Contrast- Oral and IV Dye Drug allergy (disorder) 5 [facility] (20 sources) Penicillins; Translations: [PENICILLINS] Propensity to adverse reactions to drug (disorder) 5 Rash [facility] (20 sources) IODINATED CONTRAST MEDIA; Translations: [IODINATED CONTRAST MEDIA] Propensity to adverse reactions to drug (disorder) 3 Anaphylaxis [facility] (1 source) levoFLOXacin Drug Allergy 3 The [facility] (1 source) meloxicam Drug Allergy 3 The [facility] (4 sources) NSAIDS (Non-Steroidal Anti-Inflamma; Translations: [NSAIDS (Non-Steroidal Anti-Inflamma] Propensity to adverse reactions [address] [facility] (1 source) Morphine Drug Allergy [address] 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] Onset: 02-11-2010 [...] 07-29-2013 01-09-2024 Chronic Other aftercare (2 sources) skilled nursing (current) use of aspirin; 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] Onset: 11-19-2018 Episodic Other aftercare (1 source) Other fdc (current) drug therapy; Translations: [OTH 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 #:[id number]: #[id number] Final Pathologic Diagnosis 1. Duodenum biopsy first portion: Duodenal mucosa with no significant histopathologic changes. No active inflammation, celiac disease, parasites, granuloma or atypia. 2. Antrum biopsy: Gastric antral mucosa with no significant histopathologic changes. No intestinal metaplasia or dysplasia. No Helicobacter pylori organisms are seen on routine sections. Report Electronically Signed [facility]/07/31/2024Rodriguez Vargas MD Interpretation performed at [facility], [address] [place] [address], License number: [id number]. Clinical History Vomiting, gastroesophageal reflux, dysphagia Gross Description 1. Received in formalin labeled ASLINGER, #1: Duodenum is a single hathaway bit of soft tissue, 0.2 cm in greatest dimension. Filtered and submitted in a single cassette. (1, ns, [id number], m7) MG 2. Received in formalin labeled ASLINGER, #2: Antrum is a single hathaway bit of soft tissue, 0.3 cm in greatest dimension. Filtered and submitted in a single cassette. (1, ns, [id number], m7) MG mjg/07/28/2024GR Specimen(s) Received 1: Duodenum biopsy first portion 2: Antrum biopsy Fee Codes(s): 1; 83521 2; 18944 EMG 1 Extremeityon 4 C8 radiculopathy on the left, moderate [facility] NVC 5-6 Nerveson 07-17-2024 C8 radiculopathy on the left, moderate [facility] XR HIP LT 2-3 VIEWS W OR [...] Muller MD on 06/13/2024 10:24 PM Normal [facility] XR SPINE LUMBAR 2 OR 3 [...] Gonzales MD on 06/13/2024 10:20 PM Normal [facility] MR HIP RIGHT WO IV CONTRASTo [...] of the right hip Hemal Sheth D.O. [facility] Radiology Study observation (narrative) [facility] US AYSEHA DOP LEG LTon 01-16-20 US AYESHA DOP [...] DANIEL MARIE Date: 2023-01-15 08:25 Normal The [facility] XR ANKLE LT MIN 3 Von 2022 [...] GONZALEZ PATEL Date: 2023-01-15 07:28 Normal The [facility] VITAMIN B1 (THIAMINE)on Vit. B1, Whole Blood 118.1 nmol/L Normal 66.5-200.0 [facility] Comment on above: Performed By: #### C BC #### [facility] [address] [place] [address] Dr. Ekta Funk BNPon 01-10-2023 Natriuretic peptide B (Bld) [Mass/Vol] 980.0 pg/mL Critically high <=900.0 [facility] Comment on above: Performed By: #### C VDTBH #### [facility] [address] [place] [address] Dr. Ekta Funk CBC AUTO DIFFon 01-10-2023 BASO # 0.1 103/ul Normal 0.0-0.1 [facility] Comment on above: Performed By: #### C MP #### [facility] [address] [place] [address] Dr. Ekta Funk Basophils/100 WBC (Bld) 1.0 % Normal 0.2-2.0 [facility] Comment on above: Performed By: #### C MP #### [facility] [address] [place] [address] Dr. Ekta Funk EO # 0.4 103/ul Normal 0.0-0.7 [facility] Comment on above: Performed By: #### C MP #### [facility] [address] [place] [address] Dr. Ekta Funk Eosinophils/100 WBC (Bld) 3.7 % Normal 0.9-7.0 [facility] Comment on above: Performed By: #### C MP #### [facility] [address] [place] [address] Dr. Ekta Funk Erythrocyte distribution width (RBC) [Ratio] 13.2 % Normal 11.0-15.0 [facility] Comment on above: Performed By: #### C MP #### [facility] [address] [place] [address] Dr. Ekta Funk Hematocrit (Bld) [Volume fraction] 35.1 % Critically low 36.0-48.0 [facility] Comment on above: Performed By: #### C MP #### [facility] [address] [place] [address] Dr. Ekta Funk Hemoglobin (Bld) [Mass/Vol] 11.3 g/dL Critically low 12.0-16.0 [facility] Comment on above: Performed By: #### C MP #### [facility] [address] [place] [address] Dr. Ekta Funk IG # 0.04 10e3/ul Critically high 0.00-0.03 [facility] Comment on above: Performed By: #### C MP #### [facility] [address] [place] [address] Dr. Ekta Funk IG % 0.4 % Normal 0.0-0.5 [facility] Comment on above: Performed By: #### C MP #### [facility] [address] [place] [address] Dr. Ekta Funk LYMPH # 2.0 103/ul Normal 1.2-3.8 [facility] Comment on above: Performed By: #### C MP #### [facility] [address] [place] [address] Dr. Ekta Funk Lymphocytes/100 WBC (Bld) 20.8 % Normal 20.5-60.0 [facility] Comment on above: Performed By: #### C MP #### [facility] [address] [place] [address] Dr. Ekta Funk MANUAL DIFF REQ NO Normal [facility] Comment on above: Performed By: #### C MP #### [facility] [address] [place] [address] Dr. Ekta Funk MCH (RBC) [Entitic mass] 32.3 pg Normal 26.7-34.0 [facility] Comment on above: Performed By: #### C MP #### [facility] [address] [place] [address] Dr. Ekta Funk MCHC (RBC) [Mass/Vol] 32.2 g/dL Normal 29.9-35.2 [facility] Comment on above: Performed By: #### C MP #### [facility] [address] [place] [address] Dr. Ekta Funk MCV (RBC) [Entitic vol] 100.3 fL Critically high 81.0-99.0 [facility] Comment on above: Performed By: #### C MP #### [facility] [address] [place] [address] Dr. Ekta Funk MONO # 0.8 103/ul Normal 0.3-0.8 [facility] Comment on above: Performed By: #### C MP #### [facility] [address] [place] [address] Dr. Ekta Funk Monocytes/100 WBC (Bld) 7.9 % Normal 1.7-12.0 [facility] Comment on above: Performed By: #### C MP #### [facility] [address] [place] [address] Dr. Ekta Funk NEUT # 6.4 103/ul Normal 1.4-6.5 [facility] Comment on above: Performed By: #### C MP #### [facility] [address] [place] [address] Dr. Ekta Funk Neutrophils/100 WBC (Bld) 66.2 % Normal 43.0-75.0 [facility] Comment on above: Performed By: #### C MP #### [facility] [address] [address] [address] Ekta Fnuk Platelet mean volume (Bld) [Entitic vol] 9.6 fL Normal 9.5-13.5 [facility] Comment on above: Performed By: #### C MP #### [facility] [address] [address] [address] Ekta Funk PLT 255 103/ul Normal 150-450 [facility] Comment on above: Performed By: #### C MP #### [facility] [address] [address] [address] Ekta Funk RBC 3.50 106/ul Critically low 4.20-5.40 [facility] Comment on above: Performed By: #### C MP #### [facility] [address] [address] [address] Ekta Funk WBC 9.7 103/ul Normal 4.0-11.0 [facility] Comment on above: Performed By: #### C MP #### [facility] [address] [address] [address] Ekta Funk CRPon 01-10-2023 CRP [Mass/Vol] mg/L Normal <=1.0 [facility] Comment on above: Performed By: #### C BC #### [facility] [address] [address] [address] Ekta Funk FREE THYROXINE INDEX T7on FTI 2.62 Normal 1.30-4.50 [facility] Comment on above: Performed By: #### C BC #### [facility] [address] [address] [address] Ekta Funk T3U 32.0 % Normal 30.0-39.0 [facility] Comment on above: Performed By: #### C BC #### [facility] [address] [address] [address] Ekta Funk T4 [Mass/Vol] 8.20 ug/dL Normal 4.80-13.90 [facility] Comment on above: Performed By: #### C BC #### [facility] [address] [place] [address] Dr. Ekta MOSESon 01-10-2023 Iron [Mass/Vol] 61.0 ug/dL Normal 50.0-170.0 [facility] Comment on above: Performed By: #### B 12FOL, VITAD, IRON #### [facility] [address] [place] [address] Dr. Ekta Funk PROF 14(COMP METB)on 023 Albumin [Mass/Vol] 2.9 g/dL Critically low 3.4-5.0 [facility] Comment on above: Performed By: #### C VDTBH #### [facility] [address] [place] [address] Dr. Ekta Funk Albumin/Globulin [Mass ratio] 0.6 {ratio} Normal [facility] Comment on above: Performed By: #### C VDTBH #### [facility] [address] [place] [address] Dr. Ekta Funk ALP [Catalytic activity/Vol] 101 U/L Normal 46-116 [facility] Comment on above: Performed By: #### C VDTBH #### [facility] [address] [place] [address] Dr. Ekta Funk ALT [Catalytic activity/Vol] 16 U/L Normal 14-59 [facility] Comment on above: Performed By: #### C VDTBH #### [facility] [address] [place] [address] Dr. Ekta Funk Anion gap [Moles/Vol] 14.6 mmol/L Normal [facility] Comment on above: Performed By: #### C VDTBH #### [facility] [address] [place] [address] Dr. Ekta Funk AST [Catalytic activity/Vol] 15 U/L Normal 15-37 [facility] Comment on above: Performed By: #### C VDTBH #### [facility] [address] [place] [address] Dr. Ekta Funk Bilirubin [Mass/Vol] 0.4 mg/dL Normal 0.2-1.0 [facility] Comment on above: Performed By: #### C VDTBH #### [facility] [address] [place] [address] Dr. Ekta Funk Calcium [Mass/Vol] 9.2 mg/dL Normal 8.5-10.1 [facility] Comment on above: Performed By: #### C VDTBH #### [facility] [address] [place] [address] Dr. Ekta Funk Chloride [Moles/Vol] 107 mmol/L Normal 98-107 [facility] Comment on above: Performed By: #### C VDTBH #### [facility] [address] [place] [address] Dr. Ekta Funk CO2 [Moles/Vol] 24.4 mmol/L Normal 21.0-32.0 [facility] Comment on above: Performed By: #### C VDTBH #### [facility] [address] [place] [address] Dr. Ekta Funk Creatinine [Mass/Vol] 2.02 mg/dL Critically high 0.55-1.02 [facility] Comment on above: Performed By: #### C VDTBH #### [facility] [address] [place] [address] Dr. Ekta Funk EGFR-AF PARAGUAYAN 29 mL/min/1.73m2 Critically low >=60 [facility] Comment on above: Performed By: #### C VDTBH #### [facility] [address] [place] [address] Dr. Ekta Funk EGFR-NON AF PARAGUAYAN 24 mL/min/1.73m2 Critically low >=60 [facility] Comment on above: Performed By: #### C VDTBH #### [facility] [address] [place] [address] Dr. Ekta Funk Globulin (S) [Mass/Vol] 4.5 g/dL Normal [facility] Comment on above: Performed By: #### C VDTBH #### [facility] [address] [place] [address] Dr. Ekta Funk Glucose [Mass/Vol] 103 mg/dL Normal 74-106 [facility] Comment on above: Performed By: #### C VDTBH #### [facility] [address] [address] [address] Ekta Funk Potassium [Moles/Vol] 5.0 mmol/L Normal 3.5-5.1 [facility] Comment on above: Performed By: #### C VDTBH #### [facility] [address] [address] [address] Ekta Funk Protein [Mass/Vol] 7.4 g/dL Normal 6.4-8.2 [facility] Comment on above: Performed By: #### C VDTBH #### [facility] [address] [address] [address] Ekta Funk Sodium [Moles/Vol] 141 mmol/L Normal 136-145 [facility] Comment on above: Performed By: #### C VDTBH #### [facility] [address] [address] [address] Ekta Funk Urea nitrogen [Mass/Vol] 23.0 mg/dL Critically high 7.0-18.0 [facility] Comment on above: Performed By: #### C VDTBH #### [facility] [address] [address] [address] Ekta Funk Urea nitrogen/Creatinine [Mass ratio] 11.4 mg/mg Normal [facility] Comment on above: Performed By: #### C VDTBH #### [facility] [address] [address] [address] Ekta Funk TSHon 01-10-2023 TSH 1.793 uIU/mL Normal 0.358-3.740 [facility] Comment on above: Performed By: #### C VDTBH #### [facility] [address] [place] [address] Dr. Ekta Funk VIT B12 AND FOLATEon 023 Cobalamin (Vitamin B12) [Mass/Vol] 175.0 pg/mL Critically low 193.0-986.0 [facility] Comment on above: Performed By: #### B 12FOL, VITAD, IRON #### [facility] [address] [address] [address] Ekta Funk FOLATE 10.30 ng/mL Normal 8.60-58.90 [facility] Comment on above: Performed By: #### B 12FOL, VITAD, IRON #### [facility] [address] [place] [address] Dr. Ekta Funk VITAMIN D 25 OHon 01-10-2023 VIT D 25-OH 24.0 ng/mL Normal [facility] Comment on above: Performed By: #### B 12FOL, VITAD, IRON #### [facility] [address] [place] [address] Dr. Ekta Funk VIT D RANGES SEE BELOW Normal [facility] Comment on above: Result Comment: <20 ng/mL Vit D deficient 20 - <30 ng/mL Vit D insufficient 30 - 100 ng/mL Vit D sufficient >100 ng/mL Potential Toxicity Performed By: #### B 12FOL, VITAD, IRON #### [facility] [address] [place] [address] Dr. Ekta Funk Office Visiton 12-15-2022 Follow-up visit [id number] Sheila Mac 1950 F Date Provider Department Center 12/15/2022 [facility] No family history on file Level of Service:31147 [place] OFFICE/OUTPATIENT ESTABLISHED MOD MDM 30-39 MIN Reason for Visit and Comments: Follow-up [146724] - Is here f/u stress test pt states she had Bruises all over both legs symptoms stated a week ago also stated legs are swollen and burning Normal [facility] NM STRESS/REST MULTIon 12-05 NM STRESS/REST MULTI Patient: SHEILA MAC Exam Date: 12/05/2022 : 1950 Gender:F Ordering : DR KRZYSZTOF HARP . Admission #: [id number] Family : Order #: [id number] CLICK HERE TO VIEW EXAM RADIOLOGY REPORT [...] 12/06/2022 at 07:26 Normal [facility] ECHOCARDIO M/2D COMPLETEon 0 11-27-2022 ECHOCARDIO M/2D COMPLETE Patient: SHEILA MAC Exam Date: 11/27/2022 : 1950 Gender:F Ordering : DR KRZYSZTOF HARP . Admission #: [id number] Family : Order #: [id number] CLICK HERE TO VIEW EXAM ECHOCARDIOGRAM REPORT [...] Gaspar M.D. on 11/27/2022 at 14:39 Normal [facility] CBC AUTO DIFFon 11-26-2022 BASO # 0.0 103/ul Normal 0.0-0.1 [facility] Comment on above: Performed By: #### I NSULIN #### [facility] [address] [place] [address] Dr. Ekta Funk Basophils/100 WBC (Bld) 0.6 % Normal 0.2-2.0 [facility] Comment on above: Performed By: #### I NSULIN #### [facility] [address] [place] [address] Dr. Ekta Funk EO # 0.3 103/ul Normal 0.0-0.7 [facility] Comment on above: Performed By: #### I NSULIN #### [facility] [address] [place] [address] Dr. Ekta Funk Eosinophils/100 WBC (Bld) 4.8 % Normal 0.9-7.0 [facility] Comment on above: Performed By: #### I NSULIN #### [facility] [address] [place] [address] Dr. Ekta Funk Erythrocyte distribution width (RBC) [Ratio] 13.3 % Normal 11.0-15.0 [facility] Comment on above: Performed By: #### I NSULIN #### [facility] [address] [place] [address] Dr. Ekta Funk Hematocrit (Bld) [Volume fraction] 29.1 % Critically low 36.0-48.0 [facility] Comment on above: Performed By: #### I NSULIN #### [facility] [address] [place] [address] Dr. Ekta Funk Hemoglobin (Bld) [Mass/Vol] 9.5 g/dL Critically low 12.0-16.0 [facility] Comment on above: Performed By: #### I NSULIN #### [facility] [address] [place] [address] Dr. Ekta Funk IG # 0.07 10e3/ul Critically high 0.00-0.03 [facility] Comment on above: Performed By: #### I NSULIN #### [facility] [address] [place] [address] Dr. Ekta Funk IG % 1.0 % Critically high 0.0-0.5 [facility] Comment on above: Performed By: #### I NSULIN #### [facility] [address] [place] [address] Dr. Ekta Funk LYMPH # 1.2 103/ul Normal 1.2-3.8 [facility] Comment on above: Performed By: #### I NSULIN #### [facility] [address] [place] [address] Dr. Ekta Funk Lymphocytes/100 WBC (Bld) 17.2 % Critically low 20.5-60.0 [facility] Comment on above: Performed By: #### I NSULIN #### [facility] [address] [place] [address] Dr. Ekta Funk MANUAL DIFF REQ NO Normal [facility] Comment on above: Performed By: #### I NSULIN #### [facility] [address] [place] [address] Dr. Ekta Funk MCH (RBC) [Entitic mass] 31.7 pg Normal 26.7-34.0 [facility] Comment on above: Performed By: #### I NSULIN #### [facility] [address] [place] [address] Dr. Ekta Funk MCHC (RBC) [Mass/Vol] 32.6 g/dL Normal 29.9-35.2 [facility] Comment on above: Performed By: #### I NSULIN #### [facility] [address] [place] [address] Dr. Ekta Funk MCV (RBC) [Entitic vol] 97.0 fL Normal 81.0-99.0 [facility] Comment on above: Performed By: #### I NSULIN #### [facility] [address] [place] [address] Dr. Ekta Funk MONO # 0.8 103/ul Normal 0.3-0.8 [facility] Comment on above: Performed By: #### I NSULIN #### [facility] [address] [place] [address] Dr. Ekta Funk Monocytes/100 WBC (Bld) 11.1 % Normal 1.7-12.0 [facility] Comment on above: Performed By: #### I NSULIN #### [facility] [address] [place] [address] Dr. Ekta Funk NEUT # 4.5 103/ul Normal 1.4-6.5 [facility] Comment on above: Performed By: #### I NSULIN #### [facility] [address] [place] [address] Dr. Ekta Funk Neutrophils/100 WBC (Bld) 65.3 % Normal 43.0-75.0 [facility] Comment on above: Performed By: #### I NSULIN #### [facility] [address] [place] [address] Dr. Ekta Funk Platelet mean volume (Bld) [Entitic vol] 9.4 fL Critically low 9.5-13.5 [facility] Comment on above: Performed By: #### I NSULIN #### [facility] [address] [place] [address] Dr. Ekta Funk PLT 263 103/ul Normal 150-450 [facility] Comment on above: Performed By: #### I NSULIN #### [facility] [address] [place] [address] Dr. Ekta Funk RBC 3.00 106/ul Critically low 4.20-5.40 [facility] Comment on above: Performed By: #### I NSULIN #### [facility] [address] [place] [address] Dr. Ekta Funk WBC 6.9 103/ul Normal 4.0-11.0 [facility] Comment on above: Performed By: #### I NSULIN #### [facility] [address] [place] [address] Dr. Ekta Funk PROF 14(COMP METB)on 023 Albumin [Mass/Vol] 2.2 g/dL Critically low 3.4-5.0 [facility] Comment on above: Performed By: #### C MP #### [facility] [address] [place] [address] Dr. Ekta Funk Albumin/Globulin [Mass ratio] 0.6 {ratio} Normal [facility] Comment on above: Performed By: #### C MP #### [facility] [address] [place] [address] Dr. Ekta Funk ALP [Catalytic activity/Vol] 82 U/L Normal 46-116 [facility] Comment on above: Performed By: #### C MP #### [facility] [address] [place] [address] Dr. Ekta Funk ALT [Catalytic activity/Vol] 13 U/L Critically low 14-59 [facility] Comment on above: Performed By: #### C MP #### [facility] [address] [place] [address] Dr. Ekta Funk Anion gap [Moles/Vol] 14.0 mmol/L Normal [facility] Comment on above: Performed By: #### C MP #### The [facility] [address] [place] [address] Dr. Ekta Funk AST [Catalytic activity/Vol] 18 U/L Normal 15-37 [facility] Comment on above: Performed By: #### C MP #### [facility] [address] [address] [address] Ekta Funk Bilirubin [Mass/Vol] 0.4 mg/dL Normal 0.2-1.0 [facility] Comment on above: Performed By: #### C MP #### [facility] [address] [address] [address] Ekta Funk Calcium [Mass/Vol] 8.6 mg/dL Normal 8.5-10.1 [facility] Comment on above: Performed By: #### C MP #### [facility] [address] [address] [address] Ekta Funk Chloride [Moles/Vol] 108 mmol/L Critically high 98-107 [facility] Comment on above: Performed By: #### C MP #### [facility] [address] [address] [address] Ekta Funk CO2 [Moles/Vol] 19.6 mmol/L Critically low 21.0-32.0 [facility] Comment on above: Performed By: #### C MP #### [facility] [address] [place] [address] Dr. Ekta Funk Creatinine [Mass/Vol] 1.70 mg/dL Critically high 0.55-1.02 [facility] Comment on above: Performed By: #### C MP #### [facility] [address] [place] [address] Dr. Ekta Funk EGFR-AF PARAGUAYAN 36 mL/min/1.73m2 Critically low >=60 [facility] Comment on above: Performed By: #### C MP #### [facility] [address] [address] [address] Ekta Funk EGFR-NON AF PARAGUAYAN 29 mL/min/1.73m2 Critically low >=60 [facility] Comment on above: Performed By: #### C MP #### [facility] [address] [address] [address] Ekta Funk Globulin (S) [Mass/Vol] 3.6 g/dL Normal [facility] Comment on above: Performed By: #### C MP #### [facility] [address] [address] [address] Ekta Funk Glucose [Mass/Vol] 103 mg/dL Normal 74-106 [facility] Comment on above: Performed By: #### C MP #### [facility] [address] [address] [address] Ekta Funk Potassium [Moles/Vol] 4.6 mmol/L Normal 3.5-5.1 [facility] Comment on above: Performed By: #### C MP #### [facility] [address] [address] [address] Ekta Funk Protein [Mass/Vol] 5.8 g/dL Critically low 6.4-8.2 [facility] Comment on above: Performed By: #### C MP #### [facility] [address] [address] [address] Ekta Funk Sodium [Moles/Vol] 137 mmol/L Normal 136-145 [facility] Comment on above: Performed By: #### C MP #### [facility] [address] [address] [address] Ekta Funk Urea nitrogen [Mass/Vol] 26.0 mg/dL Critically high 7.0-18.0 [facility] Comment on above: Performed By: #### C MP #### [facility] [address] [address] [address] Ekta Funk Urea nitrogen/Creatinine [Mass ratio] 15.3 mg/mg Normal [facility] Comment on above: Performed By: #### C MP #### [facility] [address] [address] [address] Ekta Funk CBC AUTO DIFFon 11-25-2022 BASO # 0.1 103/ul Normal 0.0-0.1 [facility] Comment on above: Performed By: #### C BC #### [facility] [address] [address] [address] Ekta Funk Basophils/100 WBC (Bld) 0.7 % Normal 0.2-2.0 [facility] Comment on above: Performed By: #### C BC #### [facility] [address] [place] [address] Dr. Ekta Funk EO # 0.3 103/ul Normal 0.0-0.7 [facility] Comment on above: Performed By: #### C BC #### [facility] [address] [place] [address] Dr. Ekta Funk Eosinophils/100 WBC (Bld) 3.4 % Normal 0.9-7.0 [facility] Comment on above: Performed By: #### C BC #### [facility] [address] [place] [address] Dr. Ekta Funk Erythrocyte distribution width (RBC) [Ratio] 13.6 % Normal 11.0-15.0 [facility] Comment on above: Performed By: #### C BC #### [facility] [address] [place] [address] Dr. Ekta Funk Hematocrit (Bld) [Volume fraction] 32.1 % Critically low 36.0-48.0 [facility] Comment on above: Performed By: #### C BC #### [facility] [address] [place] [address] Dr. Ekta Funk Hemoglobin (Bld) [Mass/Vol] 10.3 g/dL Critically low 12.0-16.0 [facility] Comment on above: Performed By: #### C BC #### [facility] [address] [place] [address] Dr. Ekta Funk IG # 0.08 10e3/ul Critically high 0.00-0.03 [facility] Comment on above: Performed By: #### C BC #### [facility] [address] [place] [address] Dr. Ekta Funk IG % 0.9 % Critically high 0.0-0.5 [facility] Comment on above: Performed By: #### C BC #### [facility] [address] [place] [address] Dr. Ekta Funk LYMPH # 0.9 103/ul Critically low 1.2-3.8 [facility] Comment on above: Performed By: #### C BC #### [facility] [address] [place] [address] Dr. Ekta Funk Lymphocytes/100 WBC (Bld) 10.7 % Critically low 20.5-60.0 [facility] Comment on above: Performed By: #### C BC #### [facility] [address] [place] [address] Dr. Ekta Funk MANUAL DIFF REQ NO Normal [facility] Comment on above: Performed By: #### C BC #### [facility] [address] [place] [address] Dr. Ekta Funk MCH (RBC) [Entitic mass] 32.2 pg Normal 26.7-34.0 [facility] Comment on above: Performed By: #### C BC #### [facility] [address] [place] [address] Dr. Ekta Funk MCHC (RBC) [Mass/Vol] 32.1 g/dL Normal 29.9-35.2 [facility] Comment on above: Performed By: #### C BC #### [facility] [address] [place] [address] Dr. Ekta Funk MCV (RBC) [Entitic vol] 100.3 fL Critically high 81.0-99.0 [facility] Comment on above: Performed By: #### C BC #### [facility] [address] [place] [address] Dr. Ekta Funk MONO # 0.9 103/ul Critically high 0.3-0.8 [facility] Comment on above: Performed By: #### C BC #### [facility] [address] [place] [address] Dr. Ekta Funk Monocytes/100 WBC (Bld) 9.9 % Normal 1.7-12.0 The [facility] Comment on above: Performed By: #### C BC #### [facility] [address] [place] [address] Dr. Ekta Funk NEUT # 6.4 103/ul Normal 1.4-6.5 The [facility] Comment on above: Performed By: #### C BC #### [facility] [address] [address] [address] Ekta Funk Neutrophils/100 WBC (Bld) 74.4 % Normal 43.0-75.0 [facility] Comment on above: Performed By: #### C BC #### [facility] [address] [address] [address] Ekta Funk Platelet mean volume (Bld) [Entitic vol] 9.5 fL Normal 9.5-13.5 [facility] Comment on above: Performed By: #### C BC #### [facility] [address] [place] [address] Dr. Ekta Funk PLT 267 103/ul Normal 150-450 The [facility] Comment on above: Performed By: #### C BC #### [facility] [address] [place] [address] Dr. Ekta Funk RBC 3.20 106/ul Critically low 4.20-5.40 [facility] Comment on above: Performed By: #### C BC #### [facility] [address] [place] [address] Dr. Ekta Funk WBC 8.6 103/ul Normal 4.0-11.0 The [facility] Comment on above: Performed By: #### C BC #### [facility] [address] [place] [address] Dr. Ekta Funk BASO # 0.1 103/ul Normal 0.0-0.1 The [facility] Comment on above: Performed By: #### C MP #### [facility] [address] [place] [address] Dr. Ekta Funk Basophils/100 WBC (Bld) 0.7 % Normal 0.2-2.0 The [facility] Comment on above: Performed By: #### C MP #### [facility] [address] [place] [address] Dr. Ekta Funk EO # 0.3 103/ul Normal 0.0-0.7 The [facility] Comment on above: Performed By: #### C MP #### [facility] [address] [address] [address] Ekta Funk Eosinophils/100 WBC (Bld) 3.9 % Normal 0.9-7.0 [facility] Comment on above: Performed By: #### C MP #### [facility] [address] [address] [address] Ekta Funk Erythrocyte distribution width (RBC) [Ratio] 13.2 % Normal 11.0-15.0 [facility] Comment on above: Performed By: #### C MP #### [facility] [address] [place] [address] Dr. Ekta Funk Hematocrit (Bld) [Volume fraction] 28.0 % Critically low 36.0-48.0 [facility] Comment on above: Performed By: #### C MP #### [facility] [address] [place] [address] Dr. Ekta Funk Hemoglobin (Bld) [Mass/Vol] 9.3 g/dL Critically low 12.0-16.0 [facility] Comment on above: Performed By: #### C MP #### [facility] [address] [address] [address] Ekta Funk IG # 0.08 10e3/ul Critically high 0.00-0.03 [facility] Comment on above: Performed By: #### C MP #### [facility] [address] [place] [address] Dr. Ekta Funk IG % 1.1 % Critically high 0.0-0.5 The [facility] Comment on above: Performed By: #### C MP #### [facility] [address] [address] [address] Ekta Funk LYMPH # 0.9 103/ul Critically low 1.2-3.8 The [facility] Comment on above: Performed By: #### C MP #### [facility] [address] [address] [address] Ekta Funk Lymphocytes/100 WBC (Bld) 12.1 % Critically low 20.5-60.0 [facility] Comment on above: Performed By: #### C MP #### [facility] [address] [place] [address] Dr. Ekta Funk MANUAL DIFF REQ NO Normal [facility] Comment on above: Performed By: #### C MP #### [facility] [address] [place] [address] Dr. Ekta Funk MCH (RBC) [Entitic mass] 32.0 pg Normal 26.7-34.0 [facility] Comment on above: Performed By: #### C MP #### [facility] [address] [place] [address] Dr. Ekta Funk MCHC (RBC) [Mass/Vol] 33.2 g/dL Normal 29.9-35.2 [facility] Comment on above: Performed By: #### C MP #### [facility] [address] [place] [address] Dr. Ekta Funk MCV (RBC) [Entitic vol] 96.2 fL Normal 81.0-99.0 [facility] Comment on above: Performed By: #### C MP #### [facility] [address] [place] [address] Dr. Ekta Funk MONO # 0.7 103/ul Normal 0.3-0.8 [facility] Comment on above: Performed By: #### C MP #### [facility] [address] [place] [address] Dr. Ekta Funk Monocytes/100 WBC (Bld) 9.8 % Normal 1.7-12.0 [facility] Comment on above: Performed By: #### C MP #### [facility] [address] [place] [address] Dr. Ekta Funk NEUT # 5.2 103/ul Normal 1.4-6.5 The [facility] Comment on above: Performed By: #### C MP #### [facility] [address] [place] [address] Dr. Ekta Funk Neutrophils/100 WBC (Bld) 72.4 % Normal 43.0-75.0 [facility] Comment on above: Performed By: #### C MP #### [facility] [address] [place] [address] Dr. Ekta Funk Platelet mean volume (Bld) [Entitic vol] 9.4 fL Critically low 9.5-13.5 [facility] Comment on above: Performed By: #### C MP #### [facility] [address] [address] [address] Ekta Funk PLT 250 103/ul Normal 150-450 [facility] Comment on above: Performed By: #### C MP #### [facility] [address] [place] [address] Dr. Ekta Funk RBC 2.91 106/ul Critically low 4.20-5.40 [facility] Comment on above: Performed By: #### C MP #### [facility] [address] [place] [address] Dr. Ekta Funk WBC 7.2 103/ul Normal 4.0-11.0 [facility] Comment on above: Performed By: #### C MP #### [facility] [address] [place] [address] Dr. Ekta Funk PROF 14(COMP METB)on 023 Albumin [Mass/Vol] 2.1 g/dL Critically low 3.4-5.0 [facility] Comment on above: Performed By: #### C MP #### [facility] [address] [place] [address] Dr. Ekta Funk Albumin/Globulin [Mass ratio] 0.6 {ratio} Normal [facility] Comment on above: Performed By: #### C MP #### [facility] [address] [place] [address] Dr. Ekta Funk ALP [Catalytic activity/Vol] 68 U/L Normal 46-116 [facility] Comment on above: Performed By: #### C MP #### [facility] [address] [place] [address] Dr. Ekta Funk ALT [Catalytic activity/Vol] 14 U/L Normal 14-59 [facility] Comment on above: Performed By: #### C MP #### [facility] [address] [place] [address] Dr. Ekta Funk Anion gap [Moles/Vol] 12.9 mmol/L Normal [facility] Comment on above: Performed By: #### C MP #### [facility] [address] [address] [address] Ekta Funk AST [Catalytic activity/Vol] 14 U/L Critically low 15-37 [facility] Comment on above: Performed By: #### C MP #### [facility] [address] [address] [address] Ekta Funk Bilirubin [Mass/Vol] 0.3 mg/dL Normal 0.2-1.0 [facility] Comment on above: Performed By: #### C MP #### [facility] [address] [address] [address] Ekta Funk Calcium [Mass/Vol] 8.3 mg/dL Critically low 8.5-10.1 [facility] Comment on above: Performed By: #### C MP #### [facility] [address] [address] [address] Ekta Funk Chloride [Moles/Vol] 109 mmol/L Critically high 98-107 [facility] Comment on above: Performed By: #### C MP #### [facility] [address] [address] [address] Ekta Funk CO2 [Moles/Vol] 19.3 mmol/L Critically low 21.0-32.0 [facility] Comment on above: Performed By: #### C MP #### [facility] [address] [address] [address] Ekta Funk Creatinine [Mass/Vol] 1.54 mg/dL Critically high 0.55-1.02 [facility] Comment on above: Performed By: #### C MP #### [facility] [address] [address] [address] Ekta Funk EGFR-AF PARAGUAYAN 40 mL/min/1.73m2 Critically low >=60 [facility] Comment on above: Performed By: #### C MP #### [facility] [address] [address] [address] Ekta Funk EGFR-NON AF PARAGUAYAN 33 mL/min/1.73m2 Critically low >=60 [facility] Comment on above: Performed By: #### C MP #### [facility] [address] [address] [address] Ekta Funk Globulin (S) [Mass/Vol] 3.7 g/dL Normal [facility] Comment on above: Performed By: #### C MP #### [facility] [address] [address] [address] Ekta Funk Glucose [Mass/Vol] 117 mg/dL Critically high 74-106 [facility] Comment on above: Performed By: #### C MP #### [facility] [address] [address] [address] Ekta Funk Potassium [Moles/Vol] 4.2 mmol/L Normal 3.5-5.1 [facility] Comment on above: Performed By: #### C MP #### [facility] [address] [address] [address] Ekta Funk Protein [Mass/Vol] 5.8 g/dL Critically low 6.4-8.2 Th [facility] Comment on above: Performed By: #### C MP #### [facility] [address] [address] [address] Ekta Funk Sodium [Moles/Vol] 137 mmol/L Normal 136-145 [facility] Comment on above: Performed By: #### C MP #### [facility] [address] [address] [address] Ekta Funk Urea nitrogen [Mass/Vol] 27.0 mg/dL Critically high 7.0-18.0 [facility] Comment on above: Performed By: #### C MP #### [facility] [address] [address] [address] Ekta Funk Urea nitrogen/Creatinine [Mass ratio] 17.5 mg/mg Normal [facility] Comment on above: Performed By: #### C MP #### [facility] [address] [address] [address] Ekta Funk AMMONIAon 11-24-2022 Ammonia (P) [Moles/Vol] 13 umol/L Normal 11-32 The [facility] Comment on above: Performed By: #### C VDTB #### [facility] [address] [place] [address] Dr. Ekta Funk CBC AUTO DIFFon 11-24-2022 BASO # 0.0 103/ul Normal 0.0-0.1 The [facility] Comment on above: Performed By: #### C MP #### [facility] [address] [place] [address] Dr. Ekta Funk Basophils/100 WBC (Bld) 0.4 % Normal 0.2-2.0 The [facility] Comment on above: Performed By: #### C MP #### [facility] [address] [place] [address] Dr. Ekta Funk EO # 0.4 103/ul Normal 0.0-0.7 The [facility] Comment on above: Performed By: #### C MP #### [facility] [address] [place] [address] Dr. Ekta Funk Eosinophils/100 WBC (Bld) 3.8 % Normal 0.9-7.0 The [facility] Comment on above: Performed By: #### C MP #### [facility] [address] [place] [address] Dr. Ekta Funk Erythrocyte distribution width (RBC) [Ratio] 13.2 % Normal 11.0-15.0 The [facility] Comment on above: Performed By: #### C MP #### [facility] [address] [place] [address] Dr. Ekta Funk Hematocrit (Bld) [Volume fraction] 34.0 % Critically low 36.0-48.0 The [facility] Comment on above: Performed By: #### C MP #### [facility] [address] [place] [address] Dr. Ekta Funk Hemoglobin (Bld) [Mass/Vol] 11.5 g/dL Critically low 12.0-16.0 The [facility] Comment on above: Performed By: #### C MP #### [facility] [address] [address] [address] Ekta Funk IG # 0.11 10e3/ul Critically high 0.00-0.03 [facility] Comment on above: Performed By: #### C MP #### [facility] [address] [place] [address] Dr. Ekta Funk IG % 1.2 % Critically high 0.0-0.5 [facility] Comment on above: Performed By: #### C MP #### [facility] [address] [place] [address] Dr. Ekta Funk LYMPH # 1.4 103/ul Normal 1.2-3.8 [facility] Comment on above: Performed By: #### C MP #### [facility] [address] [place] [address] Dr. Ekta Funk Lymphocytes/100 WBC (Bld) 14.9 % Critically low 20.5-60.0 [facility] Comment on above: Performed By: #### C MP #### [facility] [address] [place] [address] Dr. Ekta Funk MANUAL DIFF REQ NO Normal [facility] Comment on above: Performed By: #### C MP #### [facility] [address] [place] [address] Dr. Ekta Funk MCH (RBC) [Entitic mass] 32.5 pg Normal 26.7-34.0 [facility] Comment on above: Performed By: #### C MP #### [facility] [address] [place] [address] Dr. Ekta Funk MCHC (RBC) [Mass/Vol] 33.8 g/dL Normal 29.9-35.2 The [facility] Comment on above: Performed By: #### C MP #### [facility] [address] [place] [address] Dr. Ekta Funk MCV (RBC) [Entitic vol] 96.0 fL Normal 81.0-99.0 [facility] Comment on above: Performed By: #### C MP #### [facility] [address] [place] [address] Dr. Ekta Funk MONO # 0.9 103/ul Critically high 0.3-0.8 [facility] Comment on above: Performed By: #### C MP #### [facility] [address] [address] [address] Ekta Funk Monocytes/100 WBC (Bld) 9.7 % Normal 1.7-12.0 [facility] Comment on above: Performed By: #### C MP #### [facility] [address] [place] [address] Dr. Ekta Funk NEUT # 6.4 103/ul Normal 1.4-6.5 [facility] Comment on above: Performed By: #### C MP #### [facility] [address] [place] [address] Dr. Ekta Funk Neutrophils/100 WBC (Bld) 70.0 % Normal 43.0-75.0 [facility] Comment on above: Performed By: #### C MP #### [facility] [address] [place] [address] Dr. Ekta Funk Platelet mean volume (Bld) [Entitic vol] 9.3 fL Critically low 9.5-13.5 [facility] Comment on above: Performed By: #### C MP #### [facility] [address] [place] [address] Dr. Ekta Funk PLT 308 103/ul Normal 150-450 The [facility] Comment on above: Performed By: #### C MP #### [facility] [address] [place] [address] Dr. Ekta Funk RBC 3.54 106/ul Critically low 4.20-5.40 [facility] Comment on above: Performed By: #### C MP #### [facility] [address] [place] [address] Dr. Ekta Funk WBC 9.1 103/ul Normal 4.0-11.0 The [facility] Comment on above: Performed By: #### C MP #### [facility] [address] [place] [address] Dr. Ekta Funk CPKon 11-24-2022 CK [Catalytic activity/Vol] 21 U/L Critically low 26-192 [facility] Comment on above: Performed By: #### B 12FOL, CAROLYN, AURELIA #### [facility] [address] [address] [address] STROKE HEAD WOon [...] Date: 2022-11-24 11:09 Normal [facility] CTA HEAD WO W CONon 11-25-19 23 [...] DANIEL MARIE Date: 2022-11-24 12:41 Normal The [facility] CULTURE URINEon 11-24-2022 CULTURE URINE Culture Observations : NO GROWTH. Normal The [facility] Comment on above: Performed By: #### I NSULIN #### [facility] [address] [place] [address] Dr. Ekta Funk Covid-19 PCR ([facility])on 11-08 SARS-CoV-2 (COVID-19) RNA GANESH+probe Ql (Unsp spec) Not detected Normal NOT DETECTED [facility] Comment on above: Result Comment: When diagnostic [...] this test is supported by the Senior Premium Auditor of Health and Human Service's declaration that [...] used). Performed By: #### C VDTB #### [facility] [address] [place] [address] Dr. Ekta Funk ER URINE PROFILEon 3 Bilirubin Ql (U) Negative Normal NEGATIVE The [facility] Comment on above: Performed By: #### C BC #### [facility] [address] [place] [address] Dr. Ekta Funk Clarity (U) CLEAR Normal CLEAR The [facility] Comment on above: Performed By: #### C BC #### [facility] [address] [place] [address] Dr. Ekta Funk Color (U) LT. YELLOW Normal YELLOW [facility] Comment on above: Performed By: #### C BC #### [facility] [address] [place] [address] Dr. Ekta Funk ERUD A micrscopic examination will be performed if indicated. Normal The [facility] Comment on above: Performed By: #### C BC #### [facility] [address] [place] [address] Dr. Ekta Funk Glucose Ql (U) Negative Normal NEGATIVE The [facility] Comment on above: Performed By: #### C BC #### [facility] [address] [place] [address] Dr. Ekta Funk Hemoglobin Ql (U) Negative Normal NEGATIVE [facility] Comment on above: Performed By: #### C BC #### [facility] [address] [address] [address] Ekta Funk Ketones Ql (U) Negative Normal NEGATIVE [facility] Comment on above: Performed By: #### C BC #### [facility] [address] [address] [address] Ekta Funk LEUKOCYTES Negative Normal NEGATIVE [facility] Comment on above: Performed By: #### C BC #### [facility] [address] [place] [address] Dr. Ekta Funk Nitrite Ql (U) Negative Normal NEGATIVE [facility] Comment on above: Performed By: #### C BC #### [facility] [address] [place] [address] Dr. Ekta Funk pH (U) 5.5 [pH] Normal 5-9 [facility] Comment on above: Performed By: #### C BC #### [facility] [address] [place] [address] Dr. Ekta Funk SPEC GRAVITY 1.020 Normal 1.005-<=1.025 [facility] Comment on above: Performed By: #### C BC #### [facility] [address] [place] [address] Dr. Ekta Funk UA PROTEIN Negative Normal NEGATIVE/ TRACE [facility] Comment on above: Performed By: #### C BC #### [facility] [address] [place] [address] Dr. Ekta Funk UR MICRO IND NOT INDICATED Normal [facility] Comment on above: Performed By: #### C BC #### [facility] [address] [place] [address] Dr. Ekta Funk Urobilinogen Qn (U) 0.2 {Ivan'U}/dL Normal 0.2 - 1. 0 [facility] Comment on above: Performed By: #### C BC #### [facility] [address] [place] [address] Dr. Ekta Funk GLYCOHEMOGLOBIN A1Con 2022 ADA RECOMMENDATION SEE BELOW Normal [facility] Comment on above: Result Comment: ADA RECOMMENDED LIMIT 4.0 - 6.0 ADA THERAPEUTIC TARGET < 7.0 ACTION SUGGESTED > 7.0 Performed By: #### B 12FOL, VITAD, IRON #### [facility] [address] [place] [address] Dr. Ekta Funk Glucose [Mass/Vol] 143 mg/dL Normal [facility] Comment on above: Performed By: #### B 12FOL, VITAD, IRON #### [facility] [address] [address] [address] Ekta Funk HbA1c (Bld) [Mass fraction] 6.6 % Critically high 4.5-6.2 [facility] Comment on above: Performed By: #### B 12FOL, VITAD, IRON #### [facility] [address] [place] [address] Dr. Ekta Funk LACTATE/LACTIC ACIDon 2022 Lactate [Moles/Vol] 1.6 mmol/L Normal 0.4-2.0 [facility] Comment on above: Performed By: #### C MP #### [facility] [address] [place] [address] Dr. Ekta Funk Lactate [Moles/Vol] 2.1 mmol/L Critically high 0.4-2.0 [facility] Comment on above: Performed By: #### B 12FOL, VITAD, IRON #### [facility] [address] [place] [address] Dr. Ekta Funk LIPASEon 11-24-2022 Lipase [Catalytic activity/Vol] 165.0 U/L Normal 73.0-393.0 [facility] Comment on above: Performed By: #### B 12FOL, VITAD, IRON #### [facility] [address] [place] [address] Dr. Ekta Funk LIPID PROFILEon 11-24-2022 CHOL-HDL RATIO NORM SEE BELOW Normal [facility] Comment on above: Result Comment: 3.3 - 4.4 LOW RISK 4.4 - 7.1 AVERAGE RISK 7.1 - 11.0 MODERATE RISK >11.0 HIGH RISK Performed By: #### B 12FOL, VITAD, IRON #### [facility] [address] [address] [address] Ekta Funk Cholesterol [Mass/Vol] 248 mg/dL Critically high <=200 [facility] Comment on above: Performed By: #### B 12FOL, VITAD, IRON #### [facility] [address] [address] [address] Ekta Funk Cholesterol in HDL [Mass/Vol] 58 mg/dL Normal 40-60 [facility] Comment on above: Performed By: #### B 12FOL, VITAD, IRON #### [facility] [address] [address] [address] Ekta Funk Cholesterol in LDL [Mass/Vol] 165.6 mg/dL Normal [facility] Comment on above: Performed By: #### B 12FOL, VITAD, IRON #### [facility] [address] [address] [address] Ekta Funk Cholesterol.total/Ch olesterol in HDL [Mass ratio] 4.3 {ratio} Normal [facility] Comment on above: Performed By: #### B 12FOL, VITAD, IRON #### [facility] [address] [address] [address] Ekta Funk HDL NORMAL > or = 60 mg/dl - LO W CARDIOVASCULAR RISK <40 mg/dl - HIGH CARDIOVASCULAR RISK Normal The [facility] Comment on above: Performed By: #### B 12FOL, VITAD, IRON #### [facility] [address] [address] [address] Ekta Funk LDL CALC NORMAL SEE BELOW Normal [facility] Comment on above: Result Comment: <100 mg/dl OPTIMAL 100 - 129 mg/dl NEAR OR ABOVE OPTIMAL 130 - 159 mg/dl BORDERLINE HIGH 160 - 189 mg/dl HIGH >190 mg/dl VERY HIGH Performed By: #### B 12FOL, VITAD, IRON #### [facility] [address] [address] [address] Ekta Funk Triglyceride [Mass/Vol] 122 mg/dL Normal <=150 The [facility] Comment on above: Performed By: #### B 12FOL, VITAD, IRON #### [facility] [address] [place], [place] [address] Dr. Ekta Funk VLDL CALC 24.4 mg/dL Normal [facility] Comment on above: Performed By: #### B 12FOL, VITAD, IRON #### [facility] [address] [place], [place] [address] Dr. Ekta Funk MRI BRAIN WO CONon [...] RAVEN ELAINE Date: 2022-11-24 19:35 Normal The [facility] PROF 14(COMP METB)on 023 Albumin [Mass/Vol] 2.7 g/dL Critically low 3.4-5.0 Th e [facility] Comment on above: Performed By: #### B 12FOL, VITAD, IRON #### [facility] [address] [place], [place] [address] Dr. Ekta Funk Albumin/Globulin [Mass ratio] 0.6 {ratio} Normal [facility] Comment on above: Performed By: #### B 12FOL, VITAD, IRON #### [facility] [address] [address] [address] Ekta Funk ALP [Catalytic activity/Vol] 85 U/L Normal 46-116 [facility] Comment on above: Performed By: #### B 12FOL, VITAD, IRON #### [facility] [address] [place] [address] Dr. Ekta Funk ALT [Catalytic activity/Vol] 18 U/L Normal 14-59 The [facility] Comment on above: Performed By: #### B 12FOL, VITAD, IRON #### [facility] [address] [place] [address] Dr. Ekta Funk Anion gap [Moles/Vol] 18.9 mmol/L Normal [facility] Comment on above: Performed By: #### B 12FOL, VITAD, IRON #### [facility] [address] [place] [address] Dr. Ekta Funk AST [Catalytic activity/Vol] 16 U/L Normal 15-37 [facility] Comment on above: Performed By: #### B 12FOL, VITAD, IRON #### [facility] [address] [place] [address] Dr. Ekta Funk Bilirubin [Mass/Vol] 0.4 mg/dL Normal 0.2-1.0 [facility] Comment on above: Performed By: #### B 12FOL, VITAD, IRON #### [facility] [address] [place] [address] Dr. Ekta Funk Calcium [Mass/Vol] 9.5 mg/dL Normal 8.5-10.1 [facility] Comment on above: Performed By: #### B 12FOL, VITAD, IRON #### [facility] [address] [place] [address] Dr. Ekta Funk Chloride [Moles/Vol] 108 mmol/L Critically high 98-107 [facility] Comment on above: Performed By: #### B 12FOL, VITAD, IRON #### [facility] [address] [address] [address] Ekta Funk CO2 [Moles/Vol] 21.1 mmol/L Normal 21.0-32.0 [facility] Comment on above: Performed By: #### B 12FOL, VITAD, IRON #### [facility] [address] [place] [address] Dr. Ekta Funk Creatinine [Mass/Vol] 2.08 mg/dL Critically high 0.55-1.02 [facility] Comment on above: Performed By: #### B 12FOL, VITAD, IRON #### [facility] [address] [place] [address] Dr. Ekta Funk EGFR-AF PARAGUAYAN 28 mL/min/1.73m2 Critically low >=60 [facility] Comment on above: Performed By: #### B 12FOL, VITAD, IRON #### [facility] [address] [place] [address] Dr. Ekta Funk EGFR-NON AF PARAGUAYAN 23 mL/min/1.73m2 Critically low >=60 [facility] Comment on above: Performed By: #### B 12FOL, VITAD, IRON #### [facility] [address] [place] [address] Dr. Ekta Funk Globulin (S) [Mass/Vol] 4.6 g/dL Normal [facility] Comment on above: Performed By: #### B 12FOL, VITAD, IRON #### [facility] [address] [place] [address] Dr. Ekta Funk Glucose [Mass/Vol] 119 mg/dL Critically high 74-106 T [facility] Comment on above: Performed By: #### B 12FOL, VITAD, IRON #### [facility] [address] [place] [address] Dr. Ekta Funk Potassium [Moles/Vol] 5.0 mmol/L Normal 3.5-5.1 [facility] Comment on above: Performed By: #### B 12FOL, VITAD, IRON #### [facility] [address] [place] [address] Dr. Ekta Funk Protein [Mass/Vol] 7.3 g/dL Normal 6.4-8.2 [facility] Comment on above: Performed By: #### B 12FOL, VITAD, IRON #### [facility] [address] [address] [address] Ekta Funk Sodium [Moles/Vol] 143 mmol/L Normal 136-145 [facility] Comment on above: Performed By: #### B 12FOL, VITAD, IRON #### [facility] [address] [address] [address] Ekta Funk Urea nitrogen [Mass/Vol] 37.0 mg/dL Critically high 7.0-18.0 [facility] Comment on above: Performed By: #### B 12FOL, VITAD, IRON #### [facility] [address] [place] [address] Dr. Ekta Funk Urea nitrogen/Creatinine [Mass ratio] 17.8 mg/mg Normal [facility] Comment on above: Performed By: #### B 12FOL, VITAD, IRON #### [facility] [address] [place] [address] Dr. Ekta Funk TROPONIN, HIGH SENSITIVITYon 11-24-2022 HSTROP 14.1 pg/mL Normal 4.0-51.3 The [facility] Comment on above: Result Comment: CUT- OFF POINTS HAVE BEEN ESTABLISHED BASED ON THE FOURTH UNIVERSAL DEFINITIONS OF MYOCARDIAL INFARCTION. THE UPPER REFERENCE LIMIT (URL) OF TROPONIN, DEFINED THE 99TH PERCENTILE OF cTnI DISTRIBUTION IN A REFERENCE POPULATION, HAS BEEN CONFIRMED THE DECISION THRESHOLD FOR DC DIAGNOSIS. Performed By: #### B 12FOL, VITAD, IRON #### [facility] [address] [place] [address] Dr. Ekta Funk TSHon 11-24-2022 TSH 1.184 uIU/mL Normal 0.358-3.740 [facility] Comment on above: Performed By: #### B 12FOL, VITAD, IRON #### [facility] [address] [place] [address] Dr. Ekta Funk XR CHEST 1 Von [...] NATALIIA TATE Date: 2022-11-24 11:00 Normal The [facility] BNPon 11-13-2022 Natriuretic peptide B (Bld) [Mass/Vol] 565.0 pg/mL Normal <=900.0 [facility] Comment on above: Performed By: #### I NSULIN #### [facility] [address] [place] [address] Dr. Ekta Funk CBC AUTO DIFFon 11-13-2022 BASO # 0.1 103/ul Normal 0.0-0.1 [facility] Comment on above: Performed By: #### C BC #### [facility] [address] [place] [address] Dr. Ekta Funk Basophils/100 WBC (Bld) 0.6 % Normal 0.2-2.0 [facility] Comment on above: Performed By: #### C BC #### [facility] [address] [place] [address] Dr. Ekta Funk EO # 0.4 103/ul Normal 0.0-0.7 [facility] Comment on above: Performed By: #### C BC #### [facility] [address] [place] [address] Dr. Ekta Funk Eosinophils/100 WBC (Bld) 3.7 % Normal 0.9-7.0 [facility] Comment on above: Performed By: #### C BC #### [facility] [address] [place] [address] Dr. Ekta Funk Erythrocyte distribution width (RBC) [Ratio] 13.2 % Normal 11.0-15.0 [facility] Comment on above: Performed By: #### C BC #### [facility] [address] [address] [address] Ekta Funk Hematocrit (Bld) [Volume fraction] 36.7 % Normal 36.0-48.0 [facility] Comment on above: Performed By: #### C BC #### [facility] [address] [address] [address] Ekta Funk Hemoglobin (Bld) [Mass/Vol] 12.4 g/dL Normal 12.0-16.0 [facility] Comment on above: Performed By: #### C BC #### [facility] [address] [place] [address] Dr. Ekta Funk IG # 0.10 10e3/ul Critically high 0.00-0.03 [facility] Comment on above: Performed By: #### C BC #### [facility] [address] [place] [address] Dr. Ekta Funk IG % 1.0 % Critically high 0.0-0.5 [facility] Comment on above: Performed By: #### C BC #### [facility] [address] [address] [address] Ekta Funk LYMPH # 1.5 103/ul Normal 1.2-3.8 [facility] Comment on above: Performed By: #### C BC #### [facility] [address] [place] [address] Dr. Ekta Funk Lymphocytes/100 WBC (Bld) 14.9 % Critically low 20.5-60.0 [facility] Comment on above: Performed By: #### C BC #### [facility] [address] [place] [address] Dr. Ekta Funk MANUAL DIFF REQ NO Normal [facility] Comment on above: Performed By: #### C BC #### [facility] [address] [place] [address] Dr. Ekta Funk MCH (RBC) [Entitic mass] 32.8 pg Normal 26.7-34.0 [facility] Comment on above: Performed By: #### C BC #### [facility] [address] [address] [address] Ekta Funk MCHC (RBC) [Mass/Vol] 33.8 g/dL Normal 29.9-35.2 [facility] Comment on above: Performed By: #### C BC #### [facility] [address] [address] [address] Ekta Funk MCV (RBC) [Entitic vol] 97.1 fL Normal 81.0-99.0 [facility] Comment on above: Performed By: #### C BC #### [facility] [address] [address] [address] Ekta Funk MONO # 0.8 103/ul Normal 0.3-0.8 [facility] Comment on above: Performed By: #### C BC #### [facility] [address] [place] [address] Dr. Ekta Funk Monocytes/100 WBC (Bld) 7.7 % Normal 1.7-12.0 [facility] Comment on above: Performed By: #### C BC #### [facility] [address] [address] [address] Ekta Funk NEUT # 7.3 103/ul Critically high 1.4-6.5 [facility] Comment on above: Performed By: #### C BC #### [facility] [address] [place] [address] Dr. Ekta Funk Neutrophils/100 WBC (Bld) 72.1 % Normal 43.0-75.0 The [facility] Comment on above: Performed By: #### C BC #### [facility] [address] [address] [address] Ekta Funk Platelet mean volume (Bld) [Entitic vol] 9.4 fL Critically low 9.5-13.5 [facility] Comment on above: Performed By: #### C BC #### [facility] [address] [address] [address] Ekta Funk PLT 251 103/ul Normal 150-450 The [facility] Comment on above: Performed By: #### C BC #### [facility] [address] [address] [address] Ekta Funk RBC 3.78 106/ul Critically low 4.20-5.40 [facility] Comment on above: Performed By: #### C BC #### [facility] [address] [address] [address] Ekta Funk WBC 10.1 103/ul Normal 4.0-11.0 [facility] Comment on above: Performed By: #### C BC #### [facility] [address] [address] [address] Ekta Funk FREE THYROXINE INDEX T7on FTI 2.73 Normal 1.30-4.50 [facility] Comment on above: Performed By: #### I NSULIN #### [facility] [address] [place] [address] Dr. Ekta Funk T3U 35.0 % Normal 30.0-39.0 [facility] Comment on above: Performed By: #### I NSULIN #### [facility] [address] [address] [address] Ekta Funk T4 [Mass/Vol] 7.80 ug/dL Normal 4.80-13.90 [facility] Comment on above: Performed By: #### I NSULIN #### [facility] [address] [address] [address] Ekta Funk GLYCOHEMOGLOBIN A1Con 2022 ADA RECOMMENDATION SEE BELOW Normal [facility] Comment on above: Result Comment: ADA RECOMMENDED LIMIT 4.0 - 6.0 ADA THERAPEUTIC TARGET < 7.0 ACTION SUGGESTED > 7.0 Performed By: #### B 12FOL, VITAD, IRON #### [facility] [address] [address] [address] Ekta Funk Glucose [Mass/Vol] 134 mg/dL Normal [facility] Comment on above: Performed By: #### B 12FOL, VITAD, IRON #### [facility] [address] [address] [address] Ekta Funk HbA1c (Bld) [Mass fraction] 6.3 % Critically high 4.5-6.2 [facility] Comment on above: Performed By: #### B 12FOL VITAD, IRON #### [facility] [address] [address] [address] Ekta Funk IRONon 11-13-2022 Iron [Mass/Vol] 55.0 ug/dL Normal 50.0-170.0 [facility] Comment on above: Performed By: #### B 12FOL VITAD, IRON #### [facility] [address] [address] [address] Ekta Funk LIPID PROFILEon 11-13-2022 CHOL-HDL RATIO NORM SEE BELOW Normal [facility] Comment on above: Result Comment: 3.3 - 4.4 LOW RISK 4.4 - 7.1 AVERAGE RISK 7.1 - 11.0 MODERATE RISK >11.0 HIGH RISK Performed By: #### I NSULIN #### [facility] [address] [address] [address] Ekta Funk Cholesterol [Mass/Vol] 294 mg/dL Critically high <=200 [facility] Comment on above: Performed By: #### I NSULIN #### [facility] [address] [address] [address] Ekta Funk Cholesterol in HDL [Mass/Vol] 64 mg/dL Critically high 40-60 [facility] Comment on above: Performed By: #### I NSULIN #### [facility] [address] [address] [address] Ekta Funk Cholesterol in LDL [Mass/Vol] 197.2 mg/dL Normal [facility] Comment on above: Performed By: #### I NSULIN #### [facility] [address] [address] [address] Ekta Funk Cholesterol.total/Ch olesterol in HDL [Mass ratio] 4.6 {ratio} Normal [facility] Comment on above: Performed By: #### I NSULIN #### [facility] [address] [address] [address] Ekta Funk HDL NORMAL > or = 60 mg/dl - LO W CARDIOVASCULAR RISK <40 mg/dl - HIGH CARDIOVASCULAR RISK Normal [facility] Comment on above: Performed By: #### I NSULIN #### [facility] [address] [address] [address] Ekta Funk LDL CALC NORMAL SEE BELOW Normal [facility] Comment on above: Result Comment: <100 mg/dl OPTIMAL 100 - 129 mg/dl NEAR OR ABOVE OPTIMAL 130 - 159 mg/dl BORDERLINE HIGH 160 - 189 mg/dl HIGH >190 mg/dl VERY HIGH Performed By: #### I NSULIN #### [facility] [address] [address] [address] Ekta Funk Triglyceride [Mass/Vol] 164 mg/dL Critically high <=150 [facility] Comment on above: Performed By: #### I NSULIN #### [facility] [address] [place] [address] Dr. Ekta Funk VLDL CALC 32.8 mg/dL Normal [facility] Comment on above: Performed By: #### I NSULIN #### [facility] [address] [address] [address] Ekta Funk PROF 14(COMP METB)on 023 Albumin [Mass/Vol] 3.0 g/dL Critically low 3.4-5.0 Th [facility] Comment on above: Performed By: #### I NSULIN #### [facility] [address] [place] [address] Dr. Ekta Funk Albumin/Globulin [Mass ratio] 0.6 {ratio} Normal [facility] Comment on above: Performed By: #### I NSULIN #### [facility] [address] [place] [address] Dr. Ekta Funk ALP [Catalytic activity/Vol] 92 U/L Normal 46-116 [facility] Comment on above: Performed By: #### I NSULIN #### [facility] [address] [place] [address] Dr. Ekta Funk ALT [Catalytic activity/Vol] 26 U/L Normal 14-59 [facility] Comment on above: Performed By: #### I NSULIN #### [facility] [address] [address] [address] Ekta Funk Anion gap [Moles/Vol] 16.2 mmol/L Normal [facility] Comment on above: Performed By: #### I NSULIN #### [facility] [address] [address] [address] Ekta Funk AST [Catalytic activity/Vol] 16 U/L Normal 15-37 [facility] Comment on above: Performed By: #### I NSULIN #### [facility] [address] [address] [address] Ekta Funk Bilirubin [Mass/Vol] 0.5 mg/dL Normal 0.2-1.0 [facility] Comment on above: Performed By: #### I NSULIN #### [facility] [address] [place] [address] Dr. Ekta Funk Calcium [Mass/Vol] 9.7 mg/dL Normal 8.5-10.1 [facility] Comment on above: Performed By: #### I NSULIN #### [facility] [address] [place] [address] Dr. Ekta Funk Chloride [Moles/Vol] 105 mmol/L Normal 98-107 [facility] Comment on above: Performed By: #### I NSULIN #### [facility] [address] [place] [address] Dr. Ekta Funk CO2 [Moles/Vol] 24.9 mmol/L Normal 21.0-32.[address] [facility] Comment on above: Performed By: #### I NSULIN #### [facility] [address] [place] [address] Dr. Ekta Funk Creatinine [Mass/Vol] 2.18 mg/dL Critically high 0.55-1.02 [facility] Comment on above: Performed By: #### I NSULIN #### [facility] [address] [place] [address] Dr. Ekta Funk EGFR-AF PARAGUAYAN 27 mL/min/1.73m2 Critically low >=60 The [facility] Comment on above: Performed By: #### I NSULIN #### [facility] [address] [place] [address] Dr. Ekta Funk EGFR-NON AF PARAGUAYAN 22 mL/min/1.73m2 Critically low >=60 [facility] Comment on above: Performed By: #### I NSULIN #### [facility] [address] [place] [address] Dr. Ekta Funk Globulin (S) [Mass/Vol] 4.7 g/dL Normal [facility] Comment on above: Performed By: #### I NSULIN #### [facility] [address] [address] [address] Ekta Funk Glucose [Mass/Vol] 114 mg/dL Critically high 74-106 T [facility] Comment on above: Performed By: #### I NSULIN #### [facility] [address] [place] [address] Dr. Ekta Funk Potassium [Moles/Vol] 5.1 mmol/L Normal 3.5-5.1 [facility] Comment on above: Performed By: #### I NSULIN #### [facility] [address] [place] [address] Dr. Ekta Funk Protein [Mass/Vol] 7.7 g/dL Normal 6.4-8.2 [facility] Comment on above: Performed By: #### I NSULIN #### [facility] [address] [place] [address] Dr. Ekta Funk Sodium [Moles/Vol] 141 mmol/L Normal 136-145 [facility] Comment on above: Performed By: #### I NSULIN #### [facility] [address] [place] [address] Dr. Ekta Funk Urea nitrogen [Mass/Vol] 51.0 mg/dL Critically high 7.0-18.0 [facility] Comment on above: Performed By: #### I NSULIN #### [facility] [address] [place] [address] Dr. Ekta Funk Urea nitrogen/Creatinine [Mass ratio] 23.4 mg/mg Normal [facility] Comment on above: Performed By: #### I NSULIN #### [facility] [address] [place] [address] Dr. Ekta Funk TSHon 11-13-2022 TSH 0.935 uIU/mL Normal 0.358-3.740 [facility] Comment on above: Performed By: #### I NSULIN #### [facility] [address] [place] [address] Dr. Ekta Funk XR CHEST 2 Von [...] GODWIN BECK Date: 2022-11-13 15:40 Normal The [facility] PROF 14(COMP METB)on 023 Albumin [Mass/Vol] 3.0 g/dL Critically low 3.4-5.0 Th [facility] Comment on above: Performed By: #### Bob 12FOL, VITAD, IRON #### [facility] [address] [place] [address] Dr. Ekta Funk Albumin/Globulin [Mass ratio] 0.7 {ratio} Normal [facility] Comment on above: Performed By: #### Bob 12FOL, VITAD, IRON #### [facility] [address] [address] [address] Ekta Funk ALP [Catalytic activity/Vol] 89 U/L Normal 46-116 [facility] Comment on above: Performed By: #### Bob 12FOL, VITAD, IRON #### [facility] [address] [place] [address] Dr. Ekta Funk ALT [Catalytic activity/Vol] 29 U/L Normal 14-59 [facility] Comment on above: Performed By: #### Bob 12FOL, VITAD, IRON #### [facility] [address] [place] [address] Dr. Ekta Funk Anion gap [Moles/Vol] 15.2 mmol/L Normal [facility] Comment on above: Performed By: #### B 12FOL, VITAD, IRON #### [facility] [address] [address] [address] Ekta Funk AST [Catalytic activity/Vol] 14 U/L Critically low 15-37 [facility] Comment on above: Performed By: #### B 12FOL, VITAD, IRON #### [facility] Laboratory [address] [address] [address] Ekta Funk Bilirubin [Mass/Vol] 0.4 mg/dL Normal 0.2-1.0 [facility] Comment on above: Performed By: #### B 12FOL, VITAD, IRON #### [facility] [address] [place] [address] Dr. Ekta Funk Calcium [Mass/Vol] 9.1 mg/dL Normal 8.5-10.1 [facility] Comment on above: Performed By: #### B 12FOL, VITAD, IRON #### [facility] [address] [address] [address] Ekta Funk Chloride [Moles/Vol] 106 mmol/L Normal 98-107 [facility] Comment on above: Performed By: #### B 12FOL, VITAD, IRON #### [facility] [address] [address] [address] Ekta Funk CO2 [Moles/Vol] 24.2 mmol/L Normal 21.0-32.0 [facility] Comment on above: Performed By: #### B 12FOL, VITAD, IRON #### [facility] [address] [address] [address] Ekta Funk Creatinine [Mass/Vol] 1.89 mg/dL Critically high 0.55-1.02 [facility] Comment on above: Performed By: #### B 12FOL, VITAD, IRON #### [facility] [address] [address] [address] Ekta Funk EGFR-AF PARAGUAYAN 32 mL/min/1.73m2 Critically low >=60 [facility] Comment on above: Performed By: #### B 12FOL, VITAD, IRON #### [facility] [address] [place] [address] Dr. Ekta Funk EGFR-NON AF PARAGUAYAN 26 mL/min/1.73m2 Critically low >=60 [facility] Comment on above: Performed By: #### B 12FOL, VITAD, IRON #### [facility] [address] [place] [address] Dr. Ekta Funk Globulin (S) [Mass/Vol] 4.1 g/dL Normal [facility] Comment on above: Performed By: #### B 12FOL, VITAD, IRON #### [facility] [address] [place] [address] Dr. Ekta Funk Glucose [Mass/Vol] 108 mg/dL Critically high 74-106 T [facility] Comment on above: Performed By: #### B 12FOL, VITAD, IRON #### [facility] [address] [place] [address] Dr. Ekta Funk Potassium [Moles/Vol] 4.4 mmol/L Normal 3.5-5.1 [facility] Comment on above: Performed By: #### B 12FOL, VITAD, IRON #### [facility] [address] [place] [address] Dr. Ekta Funk Protein [Mass/Vol] 7.1 g/dL Normal 6.4-8.2 [facility] Comment on above: Performed By: #### B 12FOL, VITAD, IRON #### [facility] [address] [place] [address] Dr. Ekta Funk Sodium [Moles/Vol] 141 mmol/L Normal 136-145 [facility] Comment on above: Performed By: #### B 12FOL, VITAD, IRON #### [facility] [address] [place] [address] Dr. Ekta Funk Urea nitrogen [Mass/Vol] 40.0 mg/dL Critically high 7.0-18.0 [facility] Comment on above: Performed By: #### B 12FOL, VITAD, IRON #### [facility] [address] [place] [address] Dr. Ekta Funk Urea nitrogen/Creatinine [Mass ratio] 21.2 mg/mg Normal [facility] Comment on above: Performed By: #### B 12FOL, VITAD, IRON #### [facility] [address] [place] [address] Dr. Ekta Funk BNPon 10-23-2022 Natriuretic peptide B (Bld) [Mass/Vol] 507.0 pg/mL Normal <=900.0 [facility] Comment on above: Performed By: #### B 12FOL, VITAD, IRON #### [facility] [address] [place] [address] Dr. Ekta Funk CBC AUTO DIFFon 10-23-2022 BASO # 0.0 103/ul Normal 0.0-0.1 [facility] Comment on above: Performed By: #### C BC #### [facility] [address] [place] [address] Dr. Ekta Funk Basophils/100 WBC (Bld) 0.2 % Normal 0.2-2.0 [facility] Comment on above: Performed By: #### C BC #### [facility] [address] [place] [address] Dr. Ekta Funk EO # 0.1 103/ul Normal 0.0-0.7 [facility] Comment on above: Performed By: #### C BC #### [facility] [address] [place] [address] Dr. Ekta Funk Eosinophils/100 WBC (Bld) 1.1 % Normal 0.9-7.0 The [facility] Comment on above: Performed By: #### C BC #### [facility] [address] [place] [address] Dr. Ekta Funk Erythrocyte distribution width (RBC) [Ratio] 12.8 % Normal 11.0-15.0 [facility] Comment on above: Performed By: #### C BC #### [facility] [address] [place] [address] Dr. Ekta Funk Hematocrit (Bld) [Volume fraction] 37.1 % Normal 36.0-48.0 [facility] Comment on above: Performed By: #### C BC #### [facility] [address] [place] [address] Dr. Ekta Funk Hemoglobin (Bld) [Mass/Vol] 13.0 g/dL Normal 12.0-16.0 [facility] Comment on above: Performed By: #### C BC #### [facility] [address] [place] [address] Dr. Ekta Funk IG # 0.11 10e3/ul Critically high 0.00-0.03 [facility] Comment on above: Performed By: #### C BC #### [facility] [address] [place] [address] Dr. Ekta Funk IG % 1.1 % Critically high 0.0-0.5 [facility] Comment on above: Performed By: #### C BC #### [facility] [address] [place] [address] Dr. Ekta Funk LYMPH # 1.6 103/ul Normal 1.2-3.8 [facility] Comment on above: Performed By: #### C BC #### [facility] [address] [place] [address] Dr. Ekta Funk Lymphocytes/100 WBC (Bld) 15.6 % Critically low 20.5-60.0 [facility] Comment on above: Performed By: #### C BC #### [facility] [address] [place] [address] Dr. Ekta Funk MANUAL DIFF REQ NO Normal [facility] Comment on above: Performed By: #### C BC #### [facility] [address] [place] [address] Dr. Ekta Funk MCH (RBC) [Entitic mass] 32.8 pg Normal 26.7-34.0 [facility] Comment on above: Performed By: #### C BC #### [facility] [address] [place] [address] Dr. Ekat Funk MCHC (RBC) [Mass/Vol] 35.0 g/dL Normal 29.9-35.2 [facility] Comment on above: Performed By: #### C BC #### [facility] [address] [place] [address] Dr. Ekta Funk MCV (RBC) [Entitic vol] 93.7 fL Normal 81.0-99.0 [facility] Comment on above: Performed By: #### C BC #### [facility] [address] [place] [address] Dr. Ekta Funk MONO # 0.9 103/ul Critically high 0.3-0.8 [facility] Comment on above: Performed By: #### C BC #### [facility] [address] [place] [address] Dr. Ekta Funk Monocytes/100 WBC (Bld) 8.3 % Normal 1.7-12.0 [facility] Comment on above: Performed By: #### C BC #### [facility] [address] [place] [address] Dr. Ekta Funk NEUT # 7.5 103/ul Critically high 1.4-6.5 [facility] Comment on above: Performed By: #### C BC #### [facility] [address] [place] [address] Dr. Ekta Funk Neutrophils/100 WBC (Bld) 73.7 % Normal 43.0-75.0 [facility] Comment on above: Performed By: #### C BC #### [facility] [address] [place] [address] Dr. Ekta Funk Platelet mean volume (Bld) [Entitic vol] 10.3 fL Normal 9.5-13.5 The [facility] Comment on above: Performed By: #### C BC #### [facility] [address] [place] [address] Dr. Ekta Funk PLT 135 103/ul Critically low 150-450 [facility] Comment on above: Performed By: #### C BC #### [facility] [address] [place] [address] Dr. Ekta Funk RBC 3.96 106/ul Critically low 4.20-5.40 [facility] Comment on above: Performed By: #### C BC #### [facility] [address] [place] [address] Dr. Ekta Funk WBC 10.2 103/ul Normal 4.0-11.0 [facility] Comment on above: Performed By: #### C BC #### [facility] [address] [place] [address] Dr. Ekta Funk PROF 14(COMP METB)on 023 Albumin [Mass/Vol] 2.7 g/dL Critically low 3.4-5.0 [facility] Comment on above: Performed By: #### B 12FOL, VITAD, IRON #### [facility] [address] [place] [address] Dr. Ekta Funk Albumin/Globulin [Mass ratio] 0.8 {ratio} Normal [facility] Comment on above: Performed By: #### B 12FOL, VITAD, IRON #### [facility] [address] [place] [address] Dr. Ekta Funk ALP [Catalytic activity/Vol] 74 U/L Normal 46-116 [facility] Comment on above: Performed By: #### B 12FOL, VITAD, IRON #### [facility] [address] [place] [address] Dr. Etka Funk ALT [Catalytic activity/Vol] 26 U/L Normal 14-59 [facility] Comment on above: Performed By: #### B 12FOL, VITAD, IRON #### [facility] [address] [place] [address] Dr. Ekta Funk Anion gap [Moles/Vol] 16.5 mmol/L Normal [facility] Comment on above: Performed By: #### B 12FOL, VITAD, IRON #### [facility] [address] [place] [address] Dr. Ekta Funk AST [Catalytic activity/Vol] 15 U/L Normal 15-37 [facility] Comment on above: Performed By: #### B 12FOL, VITAD, IRON #### [facility] [address] [place] [address] Dr. Ekta Funk Bilirubin [Mass/Vol] 0.4 mg/dL Normal 0.2-1.0 [facility] Comment on above: Performed By: #### B 12FOL, VITAD, IRON #### [facility] [address] [place] [address] Dr. Ekta Funk Calcium [Mass/Vol] 8.1 mg/dL Critically low 8.5-10.1 [facility] Comment on above: Performed By: #### B 12FOL, VITAD, IRON #### [facility] [address] [place] [address] Dr. Ekta Funk Chloride [Moles/Vol] 96 mmol/L Critically low 98-107 [facility] Comment on above: Performed By: #### B 12FOL, VITAD, IRON #### [facility] [address] [place] [address] Dr. Ekta Funk CO2 [Moles/Vol] 26.1 mmol/L Normal 21.0-32.0 [facility] Comment on above: Performed By: #### B 12FOL, VITAD, IRON #### [facility] [address] [place] [address] Dr. Ekta Funk Creatinine [Mass/Vol] 3.28 mg/dL Critically high 0.55-1.02 [facility] Comment on above: Performed By: #### B 12FOL, VITAD, IRON #### [facility] [address] [place] [address] Dr. Ekta Funk EGFR-AF PARAGUAYAN 17 mL/min/1.73m2 Critically low >=60 [facility] Comment on above: Performed By: #### B 12FOL, VITAD, IRON #### [facility] [address] [place] [address] Dr. Ekta Funk EGFR-NON AF PARAGUAYAN 14 mL/min/1.73m2 Critically low >=60 [facility] Comment on above: Performed By: #### B 12FOL, VITAD, IRON #### [facility] [address] [place] [address] Dr. Ekta Funk Globulin (S) [Mass/Vol] 3.6 g/dL Normal [facility] Comment on above: Performed By: #### B 12FOL, VITAD, IRON #### [facility] [address] [place] [address] Dr. Ekta Funk Glucose [Mass/Vol] 132 mg/dL Critically high 74-106 T [facility] Comment on above: Performed By: #### B 12FOL, VITAD, IRON #### [facility] [address] [place] [address] Dr. Ekta Funk Potassium [Moles/Vol] 4.6 mmol/L Normal 3.5-5.1 [facility] Comment on above: Performed By: #### B 12FOL, VITAD, IRON #### [facility] [address] [place] [address] Dr. Ekta Funk Protein [Mass/Vol] 6.3 g/dL Critically low 6.4-8.2 [facility] Comment on above: Performed By: #### B 12FOL, VITAD, IRON #### [facility] [address] [place] [address] Dr. Ekta Funk Sodium [Moles/Vol] 134 mmol/L Critically low 136-145 Th [facility] Comment on above: Performed By: #### B 12FOL, VITAD, IRON #### [facility] [address] [place] [address] Dr. Ekta Funk Urea nitrogen [Mass/Vol] 74.0 mg/dL Critically high 7.0-18.0 [facility] Comment on above: Performed By: #### B 12FOL, VITAD, IRON #### [facility] [address] [place] [address] Dr. Ekta Funk Urea nitrogen/Creatinine [Mass ratio] 22.6 mg/mg Normal [facility] Comment on above: Performed By: #### B 12FOL, VITAD, IRON #### [facility] [address] [place] [address] Dr. Ekta Funk BNPon 10-22-2022 Natriuretic peptide B (Bld) [Mass/Vol] 1411.0 pg/mL Critically high <=900.0 The [facility] Comment on above: Performed By: #### B 12FOL, VITAD, IRON #### [facility] [address] [place] [address] Dr. Ekta Funk CBC AUTO DIFFon 10-22-2022 BASO # 0.0 103/ul Normal 0.0-0.1 The [facility] Comment on above: Performed By: #### B 12FOL, VITAD, IRON #### [facility] [address] [place] [address] Dr. Ekta Funk Basophils/100 WBC (Bld) 0.3 % Normal 0.2-2.0 The [facility] Comment on above: Performed By: #### B 12FOL, VITAD, IRON #### [facility] [address] [place] [address] Dr. Ekta Funk EO # 0.1 103/ul Normal 0.0-0.7 [facility] Comment on above: Performed By: #### B 12FOL, VITAD, IRON #### [facility] [address] [place] [address] Dr. Ekta Funk Eosinophils/100 WBC (Bld) 0.6 % Critically low 0.9-7.0 [facility] Comment on above: Performed By: #### B 12FOL, VITAD, IRON #### [facility] [address] [place] [address] Dr. Ekta Funk Erythrocyte distribution width (RBC) [Ratio] 12.9 % Normal 11.0-15.0 [facility] Comment on above: Performed By: #### B 12FOL, VITAD, IRON #### [facility] [address] [place] [address] Dr. Ekta Funk Hematocrit (Bld) [Volume fraction] 40.8 % Normal 36.0-48.0 [facility] Comment on above: Performed By: #### B 12FOL, VITAD, IRON #### [facility] [address] [place] [address] Dr. Ekta Funk Hemoglobin (Bld) [Mass/Vol] 14.0 g/dL Normal 12.0-16.0 [facility] Comment on above: Performed By: #### B 12FOL, VITAD, IRON #### [facility] [address] [place] [address] Dr. Ekta Funk IG # 0.09 10e3/ul Critically high 0.00-0.03 [facility] Comment on above: Performed By: #### B 12FOL, VITAD, IRON #### [facility] [address] [place] [address] Dr. Ekta Funk IG % 0.8 % Critically high 0.0-0.5 [facility] Comment on above: Performed By: #### B 12FOL, VITAD, IRON #### [facility] [address] [place] [address] Dr. Ekta Funk LYMPH # 1.8 103/ul Normal 1.2-3.8 The [facility] Comment on above: Performed By: #### B 12FOL, VITAD, IRON #### [facility] [address] [place] [address] Dr. Ekta Funk Lymphocytes/100 WBC (Bld) 16.2 % Critically low 20.5-60.0 [facility] Comment on above: Performed By: #### B 12FOL, VITAD, IRON #### [facility] [address] [place] [address] Dr. Ekta Funk MANUAL DIFF REQ NO Normal [facility] Comment on above: Performed By: #### B 12FOL, VITAD, IRON #### [facility] [address] [place] [address] Dr. Ekta Funk MCH (RBC) [Entitic mass] 32.3 pg Normal 26.7-34.0 [facility] Comment on above: Performed By: #### B 12FOL, VITAD, IRON #### [facility] [address] [place] [address] Dr. Ekta Funk MCHC (RBC) [Mass/Vol] 34.3 g/dL Normal 29.9-35.2 [facility] Comment on above: Performed By: #### B 12FOL, VITAD, IRON #### [facility] [address] [address] [address] Ekta Funk MCV (RBC) [Entitic vol] 94.2 fL Normal 81.0-99.0 [facility] Comment on above: Performed By: #### B 12FOL, VITAD, IRON #### [facility] [address] [place] [address] Dr. Ekta Funk MONO # 0.8 103/ul Normal 0.3-0.8 The [facility] Comment on above: Performed By: #### B 12FOL, VITAD, IRON #### [facility] [address] [place] [address] Dr. Ekta Funk Monocytes/100 WBC (Bld) 7.3 % Normal 1.7-12.0 The [facility] Comment on above: Performed By: #### B 12FOL, VITAD, IRON #### [facility] [address] [place] [address] Dr. Ekta Funk NEUT # 8.1 103/ul Critically high 1.4-6.5 [facility] Comment on above: Performed By: #### B 12FOL, VITAD, IRON #### [facility] [address] [place] [address] Dr. Ekta Funk Neutrophils/100 WBC (Bld) 74.8 % Normal 43.0-75.0 The [facility] Comment on above: Performed By: #### B 12FOL, VITAD, IRON #### [facility] [address] [place] [address] Dr. Ekta Funk Platelet mean volume (Bld) [Entitic vol] 9.8 fL Normal 9.5-13.5 The [facility] Comment on above: Performed By: #### B 12FOL, VITAD, IRON #### [facility] [address] [place] [address] Dr. Ekta Funk PLT 226 103/ul Normal 150-450 The [facility] Comment on above: Performed By: #### B 12FOL, VITAD, IRON #### [facility] [address] [place] [address] Dr. Ekta Funk RBC 4.33 106/ul Normal 4.20-5.40 [facility] Comment on above: Performed By: #### B 12FOL, VITAD, IRON #### [facility] [address] [place] [address] Dr. Ekta Funk WBC 10.9 103/ul Normal 4.0-11.0 [facility] Comment on above: Performed By: #### B 12FOL, VITAD, IRON #### [facility] [address] [place] [address] Dr. Ekta Funk PROF 14(COMP METB)on 023 Albumin [Mass/Vol] 3.1 g/dL Critically low 3.4-5.0 [facility] Comment on above: Performed By: #### B 12FOL, VITAD, IRON #### [facility] [address] [place] [address] Dr. Ekta Funk Albumin/Globulin [Mass ratio] 0.7 {ratio} Normal [facility] Comment on above: Performed By: #### B 12FOL, VITAD, IRON #### [facility] [address] [place] [address] Dr. Ekta Funk ALP [Catalytic activity/Vol] 81 U/L Normal 46-116 The [facility] Comment on above: Performed By: #### B 12FOL, VITAD, IRON #### [facility] [address] [place] [address] Dr. Ekta Funk ALT [Catalytic activity/Vol] 30 U/L Normal 14-59 [facility] Comment on above: Performed By: #### B 12FOL, VITAD, IRON #### [facility] [address] [place] [address] Dr. Ekta Funk Anion gap [Moles/Vol] 17.3 mmol/L Normal [facility] Comment on above: Performed By: #### B 12FOL, VITAD, IRON #### [facility] [address] [place] [address] Dr. Ekta Funk AST [Catalytic activity/Vol] 11 U/L Critically low 15-37 [facility] Comment on above: Performed By: #### B 12FOL, VITAD, IRON #### [facility] [address] [address] [address] Ekta Funk Bilirubin [Mass/Vol] 0.5 mg/dL Normal 0.2-1.0 [facility] Comment on above: Performed By: #### B 12FOL, VITAD, IRON #### [facility] [address] [address] [address] Ekta Funk Calcium [Mass/Vol] 8.6 mg/dL Normal 8.5-10.1 [facility] Comment on above: Performed By: #### B 12FOL, VITAD, IRON #### [facility] [address] [place] [address] Dr. Ekta Funk Chloride [Moles/Vol] 95 mmol/L Critically low 98-107 [facility] Comment on above: Performed By: #### B 12FOL, VITAD, IRON #### [facility] [address] [place] [address] Dr. Ekta Funk CO2 [Moles/Vol] 27.3 mmol/L Normal 21.0-32.0 [facility] Comment on above: Performed By: #### B 12FOL, VITAD, IRON #### [facility] [address] [place] [address] Dr. Ekta Funk Creatinine [Mass/Vol] 3.17 mg/dL Critically high 0.55-1.02 [facility] Comment on above: Performed By: #### B 12FOL, VITAD, IRON #### [facility] [address] [place] [address] Dr. Ekta Funk EGFR-AF PARAGUAYAN 17 mL/min/1.73m2 Critically low >=60 [facility] Comment on above: Performed By: #### B 12FOL, VITAD, IRON #### [facility] [address] [place] [address] Dr. Ekta Funk EGFR-NON AF PARAGUAYAN 14 mL/min/1.73m2 Critically low >=60 [facility] Comment on above: Performed By: #### B 12FOL, VITAD, IRON #### [facility] [address] [address] [address] Ekta Funk Globulin (S) [Mass/Vol] 4.6 g/dL Normal [facility] Comment on above: Performed By: #### B 12FOL, VITAD, IRON #### [facility] [address] [place] [address] Dr. Ekta Funk Glucose [Mass/Vol] 139 mg/dL Critically high 74-106 T [facility] Comment on above: Performed By: #### B 12FOL, VITAD, IRON #### [facility] [address] [place] [address] Dr. Ekta Funk Potassium [Moles/Vol] 4.6 mmol/L Normal 3.5-5.1 [facility] Comment on above: Performed By: #### B 12FOL, VITAD, IRON #### [facility] [address] [place] [address] Dr. Ekta Funk Protein [Mass/Vol] 7.7 g/dL Normal 6.4-8.2 [facility] Comment on above: Performed By: #### B 12FOL, VITAD, IRON #### [facility] [address] [place] [address] Dr. Ekta Funk Sodium [Moles/Vol] 135 mmol/L Critically low 136-145 Th [facility] Comment on above: Performed By: #### B 12FOL, VITAD, IRON #### [facility] [address] [place] [address] Dr. Ekta Funk Urea nitrogen [Mass/Vol] 73.0 mg/dL Critically high 7.0-18.0 [facility] Comment on above: Performed By: #### B 12FOL, VITAD, IRON #### [facility] [address] [place] [address] Dr. Ekta Funk Urea nitrogen/Creatinine [Mass ratio] 23.0 mg/mg Normal [facility] Comment on above: Performed By: #### B 12FOL, VITAD, IRON #### [facility] [address] [place] [address] Dr. Ekta Funk BNPon 10-21-2022 Natriuretic peptide B (Bld) [Mass/Vol] 2007.0 pg/mL Critically high <=900.0 [facility] Comment on above: Performed By: #### C MP #### [facility] [address] [place] [address] Dr. Ekta Funk CBC AUTO DIFFon 10-21-2022 BASO # 0.0 103/ul Normal 0.0-0.1 [facility] Comment on above: Performed By: #### C BC #### [facility] [address] [place] [address] Dr. Ekta Funk Basophils/100 WBC (Bld) 0.2 % Normal 0.2-2.0 [facility] Comment on above: Performed By: #### C BC #### [facility] [address] [place] [address] Dr. Ekta Funk EO # 0.1 103/ul Normal 0.0-0.7 [facility] Comment on above: Performed By: #### C BC #### [facility] [address] [place] [address] Dr. Ekta Funk Eosinophils/100 WBC (Bld) 0.9 % Normal 0.9-7.0 [facility] Comment on above: Performed By: #### C BC #### [facility] [address] [place] [address] Dr. Ekta Funk Erythrocyte distribution width (RBC) [Ratio] 12.8 % Normal 11.0-15.0 The [facility] Comment on above: Performed By: #### C BC #### [facility] [address] [place] [address] Dr. Ekta Funk Hematocrit (Bld) [Volume fraction] 38.8 % Normal 36.0-48.0 [facility] Comment on above: Performed By: #### C BC #### [facility] [address] [place] [address] Dr. Ekta Funk Hemoglobin (Bld) [Mass/Vol] 13.3 g/dL Normal 12.0-16.0 [facility] Comment on above: Performed By: #### C BC #### [facility] [address] [place] [address] Dr. Ekta Funk IG # 0.08 10e3/ul Critically high 0.00-0.03 [facility] Comment on above: Performed By: #### C BC #### [facility] [address] [place] [address] Dr. Ekta Funk IG % 0.8 % Critically high 0.0-0.5 [facility] Comment on above: Performed By: #### C BC #### [facility] [address] [place] [address] Dr. Ekta Funk LYMPH # 1.7 103/ul Normal 1.2-3.8 [facility] Comment on above: Performed By: #### C BC #### [facility] [address] [place] [address] Dr. Ekta Funk Lymphocytes/100 WBC (Bld) 17.3 % Critically low 20.5-60.0 [facility] Comment on above: Performed By: #### C BC #### [facility] [address] [place] [address] Dr. Ekta Funk MANUAL DIFF REQ NO Normal [facility] Comment on above: Performed By: #### C BC #### [facility] [address] [place] [address] Dr. Ekta Funk MCH (RBC) [Entitic mass] 32.1 pg Normal 26.7-34.0 [facility] Comment on above: Performed By: #### C BC #### [facility] [address] [place] [address] Dr. Ekta Funk MCHC (RBC) [Mass/Vol] 34.3 g/dL Normal 29.9-35.2 [facility] Comment on above: Performed By: #### C BC #### [facility] [address] [place] [address] Dr. Ekta Funk MCV (RBC) [Entitic vol] 93.7 fL Normal 81.0-99.0 [facility] Comment on above: Performed By: #### C BC #### [facility] [address] [address] [address] Ekta Funk MONO # 0.6 103/ul Normal 0.3-0.8 The [facility] Comment on above: Performed By: #### C BC #### [facility] [address] [address] [address] Ekta Funk Monocytes/100 WBC (Bld) 6.4 % Normal 1.7-12.0 [facility] Comment on above: Performed By: #### C BC #### [facility] [address] [address] [address] Ekta Funk NEUT # 7.4 103/ul Critically high 1.4-6.5 The [facility] Comment on above: Performed By: #### C BC #### [facility] [address] [place] [address] Dr. Ekta Funk Neutrophils/100 WBC (Bld) 74.4 % Normal 43.0-75.0 [facility] Comment on above: Performed By: #### C BC #### [facility] [address] [place] [address] Dr. Ekta Funk Platelet mean volume (Bld) [Entitic vol] 9.8 fL Normal 9.5-13.5 [facility] Comment on above: Performed By: #### C BC #### [facility] [address] [place] [address] Dr. Ekta Funk PLT 193 103/ul Normal 150-450 The [facility] Comment on above: Performed By: #### C BC #### [facility] [address] [address] [address] Ekta Funk RBC 4.14 106/ul Critically low 4.20-5.40 [facility] Comment on above: Performed By: #### C BC #### [facility] [address] [address] [address] Ekta Funk WBC 9.9 103/ul Normal 4.0-11.0 The [facility] Comment on above: Performed By: #### C BC #### [facility] [address] [place] [address] Dr. Ekta Funk PROF 14(COMP METB)on 023 Albumin [Mass/Vol] 3.2 g/dL Critically low 3.4-5.0 Th e [facility] Comment on above: Performed By: #### I NSULIN #### [facility] [address] [place] [address] Dr. Ekta Funk Albumin/Globulin [Mass ratio] 0.8 {ratio} Normal [facility] Comment on above: Performed By: #### I NSULIN #### [facility] [address] [place] [address] Dr. Ekta Funk ALP [Catalytic activity/Vol] 82 U/L Normal 46-116 [facility] Comment on above: Performed By: #### I NSULIN #### [facility] [address] [place] [address] Dr. Ekta Funk ALT [Catalytic activity/Vol] 38 U/L Normal 14-59 [facility] Comment on above: Performed By: #### I NSULIN #### [facility] [address] [place] [address] Dr. Ekta Funk Anion gap [Moles/Vol] 19.1 mmol/L Normal [facility] Comment on above: Performed By: #### I NSULIN #### [facility] [address] [place] [address] Dr. Ekta Funk AST [Catalytic activity/Vol] 19 U/L Normal 15-37 [facility] Comment on above: Performed By: #### I NSULIN #### [facility] [address] [place] [address] Dr. Ekta Funk Bilirubin [Mass/Vol] 0.4 mg/dL Normal 0.2-1.0 [facility] Comment on above: Performed By: #### I NSULIN #### [facility] [address] [place] [address] Dr. Ekta Funk Calcium [Mass/Vol] 9.2 mg/dL Normal 8.5-10.1 [facility] Comment on above: Performed By: #### I NSULIN #### [facility] [address] [address] [address] Ekta Funk Chloride [Moles/Vol] 98 mmol/L Normal 98-107 [facility] Comment on above: Performed By: #### I NSULIN #### [facility] [address] [address] [address] Ekta Funk CO2 [Moles/Vol] 26.4 mmol/L Normal 21.0-32.0 [facility] Comment on above: Performed By: #### I NSULIN #### [facility] [address] [address] [address] Ekta Funk Creatinine [Mass/Vol] 2.20 mg/dL Critically high 0.55-1.02 [facility] Comment on above: Performed By: #### I NSULIN #### [facility] [address] [place] [address] Dr. Ekta Funk EGFR-AF PARAGUAYAN 26 mL/min/1.73m2 Critically low >=60 [facility] Comment on above: Performed By: #### I NSULIN #### [facility] [address] [place] [address] Dr. Ekta Funk EGFR-NON AF PARAGUAYAN 22 mL/min/1.73m2 Critically low >=60 [facility] Comment on above: Performed By: #### I NSULIN #### [facility] [address] [place] [address] Dr. Ekta Funk Globulin (S) [Mass/Vol] 3.8 g/dL Normal [facility] Comment on above: Performed By: #### I NSULIN #### [facility] [address] [address] [address] Ekta Funk Glucose [Mass/Vol] 142 mg/dL Critically high 74-106 T [facility] Comment on above: Performed By: #### I NSULIN #### [facility] [address] [address] [address] Ekta Funk Potassium [Moles/Vol] 4.5 mmol/L Normal 3.5-5.1 [facility] Comment on above: Performed By: #### I NSULIN #### [facility] [address] [address] [address] Ekta Funk Protein [Mass/Vol] 7.0 g/dL Normal 6.4-8.2 [facility] Comment on above: Performed By: #### I NSULIN #### [facility] [address] [address] [address] Ekta Funk Sodium [Moles/Vol] 139 mmol/L Normal 136-145 The [facility] Comment on above: Performed By: #### I NSULIN #### [facility] [address] [address] [address] Ekta Funk Urea nitrogen [Mass/Vol] 57.0 mg/dL Critically high 7.0-18.0 [facility] Comment on above: Performed By: #### I NSULIN #### [facility] [address] [address] [address] Ekta Funk Urea nitrogen/Creatinine [Mass ratio] 25.9 mg/mg Normal [facility] Comment on above: Performed By: #### I NSULIN #### [facility] [address] [address] [address] Ekta Funk T3, TOTAL (TRIIODOTHYRONINE) on 10-21-2022 T3, TOTAL 63 ng/dL Critically low 71-180 [facility] Comment on above: Performed By: #### C MP #### [facility] [address] [address] [address] Ekta Funk XR ABD FLAT_UPon 10-21-2022 [...] Date: 2022-10-21 11:42 Normal [facility] XR CHEST 2 Von 10-21-2022 XR CHEST [...] Date: 2022-10-21 11:23 Normal [facility] BNPon 10-20-2022 Natriuretic peptide B (Bld) [Mass/Vol] 2512.0 pg/mL Critically high <=900.0 The [facility] Comment on above: Performed By: #### B CAROLYN LAUGHLIN, IRON #### [facility] [address] [place] [address] Dr. Ekta Funk CARDIAC BRITTANIE ADMITon 023 CK [Catalytic activity/Vol] 35 U/L Normal 26-192 [facility] Comment on above: Performed By: #### Bob FelixFOL VITAD, IRON #### [facility] [address] [address] [address] Ekta Funk CK.MB [Mass/Vol] 0.64 ng/mL Normal <=3.[address] [facility] Comment on above: Performed By: #### Bob SIDDIQIL VITAD, IRON #### [facility] [address] [address] [address] Ekta Funk HSTROP 28.1 pg/mL Normal 4.0-51.3 The [facility] Comment on above: Result Comment: CUT- OFF POINTS HAVE BEEN ESTABLISHED BASED ON THE FOURTH UNIVERSAL DEFINITIONS OF MYOCARDIAL INFARCTION. THE UPPER REFERENCE LIMIT (URL) OF TROPONIN, DEFINED THE 99TH PERCENTILE OF cTnI DISTRIBUTION IN A REFERENCE POPULATION, HAS BEEN CONFIRMED THE DECISION THRESHOLD FOR DC DIAGNOSIS. Performed By: #### B 12FOL VITAD, IRON #### [facility] [address] [address] [address] Ekta Funk EVELYN 57 ng/mL Normal 9-82 The [facility] Comment on above: Performed By: #### B NENO LAUGHLINAD, IRON #### [facility] [address] [address] [address] Ekta Funk CBC AUTO DIFFon 10-20-2022 BASO # 0.0 103/ul Normal 0.0-0.1 [facility] Comment on above: Performed By: #### C BC #### [facility] [address] [address] [address] Ekta Funk Basophils/100 WBC (Bld) 0.2 % Normal 0.2-2.0 [facility] Comment on above: Performed By: #### C BC #### [facility] [address] [address] [address] Ekta Funk EO # 0.2 103/ul Normal 0.0-0.7 [facility] Comment on above: Performed By: #### C BC #### [facility] [address] [address] [address] Ekta Funk Eosinophils/100 WBC (Bld) 1.4 % Normal 0.9-7.0 [facility] Comment on above: Performed By: #### C BC #### [facility] [address] [address] [address] Ekta Funk Erythrocyte distribution width (RBC) [Ratio] 12.9 % Normal 11.0-15.0 [facility] Comment on above: Performed By: #### C BC #### [facility] [address] [address] [address] Ekta Funk Hematocrit (Bld) [Volume fraction] 34.7 % Critically low 36.0-48.0 [facility] Comment on above: Performed By: #### C BC #### [facility] [address] [address] [address] Ekta Funk Hemoglobin (Bld) [Mass/Vol] 11.8 g/dL Critically low 12.0-16.0 [facility] Comment on above: Performed By: #### C BC #### [facility] [address] [address] [address] Ekta Funk IG # 0.09 10e3/ul Critically high 0.00-0.03 [facility] Comment on above: Performed By: #### C BC #### [facility] [address] [address] [address] Ekta Funk IG % 0.8 % Critically high 0.0-0.5 [facility] Comment on above: Performed By: #### C BC #### [facility] [address] [place] [address] Dr. Ekta Funk LYMPH # 1.9 103/ul Normal 1.2-3.8 [facility] Comment on above: Performed By: #### C BC #### [facility] [address] [place] [address] Dr. Ekta Funk Lymphocytes/100 WBC (Bld) 16.1 % Critically low 20.5-60.0 [facility] Comment on above: Performed By: #### C BC #### [facility] [address] [place] [address] Dr. Ekta Funk MANUAL DIFF REQ NO Normal [facility] Comment on above: Performed By: #### C BC #### [facility] [address] [place] [address] Dr. Ekta Funk MCH (RBC) [Entitic mass] 32.6 pg Normal 26.7-34.0 [facility] Comment on above: Performed By: #### C BC #### [facility] [address] [place] [address] Dr. Ekta Funk MCHC (RBC) [Mass/Vol] 34.0 g/dL Normal 29.9-35.2 [facility] Comment on above: Performed By: #### C BC #### [facility] [address] [place] [address] Dr. Ekta Funk MCV (RBC) [Entitic vol] 95.9 fL Normal 81.0-99.0 [facility] Comment on above: Performed By: #### C BC #### [facility] [address] [place] [address] Dr. Ekta Funk MONO # 0.8 103/ul Normal 0.3-0.8 [facility] Comment on above: Performed By: #### C BC #### [facility] [address] [address] [address] Ekta Funk Monocytes/100 WBC (Bld) 7.0 % Normal 1.7-12.0 [facility] Comment on above: Performed By: #### C BC #### [facility] [address] [address] [address] Ekta Funk NEUT # 8.8 103/ul Critically high 1.4-6.5 [facility] Comment on above: Performed By: #### C BC #### [facility] [address] [address] [address] Ekta Funk Neutrophils/100 WBC (Bld) 74.5 % Normal 43.0-75.0 [facility] Comment on above: Performed By: #### C BC #### [facility] [address] [place] [address] Dr. Ekta Funk Platelet mean volume (Bld) [Entitic vol] 9.8 fL Normal 9.5-13.5 [facility] Comment on above: Performed By: #### C BC #### [facility] [address] [place] [address] Dr. Ekta Funk PLT 203 103/ul Normal 150-450 [facility] Comment on above: Performed By: #### C BC #### [facility] [address] [place] [address] Dr. Ekta Funk RBC 3.62 106/ul Critically low 4.20-5.40 [facility] Comment on above: Performed By: #### C BC #### [facility] [address] [place] [address] Dr. Ekta Funk WBC 11.8 103/ul Critically high 4.0-11.[address] [facility] Comment on above: Performed By: #### C BC #### [facility] [address] [place] [address] Dr. Ekta Funk CULTURE URINEon 10-20-2022 CULTURE URINE Culture Observations : NO GROWTH. Normal The [facility] Comment on above: Performed By: #### I NSULIN #### [facility] [address] [place], [place] [address] Dr. Ekta Funk Covid-19 PCR ([facility])on 10-11 SARS-CoV-2 (COVID-19) RNA GANESH+probe Ql (Unsp spec) Not detected Normal NOT DETECTED The [facility] Comment on above: Result Comment: When diagnostic [...] this test is supported by the Senior Premium Auditor of Health and Human Service's declaration that [...] By: #### B 12FOL, VITAD, IRON #### [facility] [address] [place] [address] [id number] [address] Ekta Funk ECHOCARDIO M/2D COMPLETEon 0 10-20-2022 ECHOCARDIO M/2D COMPLETE Patient: SHEILA MAC Exam Date: 10/20/2022 : 1950 Gender:F Ordering : DR KRZYSZTOF HARP . Admission #: [id number] Family : Order #: [id number] CLICK HERE TO VIEW EXAM ECHOCARDIOGRAM REPORT [...] Mckay M.D. on 10/20/2022 at 14:57 Normal [facility] PROF 14(COMP METB)on 023 Albumin [Mass/Vol] 2.8 g/dL Critically low 3.4-5.0 Th [facility] Comment on above: Performed By: #### B 12FOL, VITAD, IRON #### [facility] [address] [address] [address] Ekta Funk Albumin/Globulin [Mass ratio] 0.7 {ratio} [facility] Comment on above: Performed By: #### B 12FOL, VITAD, IRON #### [facility] [address] [address] [address] Ekta Funk ALP [Catalytic activity/Vol] 84 U/L Normal 46-116 [facility] Comment on above: Performed By: #### B 12FOL, VITAD, IRON #### [facility] [address] [address] [address] Ekta Funk ALT [Catalytic activity/Vol] 29 U/L Normal 14-59 [facility] Comment on above: Performed By: #### B 12FOL, VITAD, IRON #### [facility] [address] [address] [address] Ekta Funk Anion gap [Moles/Vol] 15.9 mmol/L Normal [facility] Comment on above: Performed By: #### B 12FOL, VITAD, IRON #### [facility] [address] [address] [address] Ekta Funk AST [Catalytic activity/Vol] 15 U/L Normal 15-37 [facility] Comment on above: Performed By: #### B 12FOL, VITAD, IRON #### [facility] [address] [place] [address] Dr. Ekta Funk Bilirubin [Mass/Vol] 0.3 mg/dL Normal 0.2-1.0 [facility] Comment on above: Performed By: #### B 12FOL, VITAD, IRON #### [facility] [address] [place] [address] Dr. Ekta Funk Calcium [Mass/Vol] 8.9 mg/dL Normal 8.5-10.1 [facility] Comment on above: Performed By: #### B 12FOL, VITAD, IRON #### [facility] [address] [place] [address] Dr. Ekta Funk Chloride [Moles/Vol] 103 mmol/L Normal 98-107 [facility] Comment on above: Performed By: #### B 12FOL, VITAD, IRON #### [facility] [address] [place] [address] Dr. Ekta Funk CO2 [Moles/Vol] 26.3 mmol/L Normal 21.0-32.0 [facility] Comment on above: Performed By: #### B 12FOL, VITAD, IRON #### [facility] [address] [place] [address] Dr. Ekta Funk Creatinine [Mass/Vol] 1.99 mg/dL Critically high 0.55-1.02 [facility] Comment on above: Performed By: #### B 12FOL, VITAD, IRON #### [facility] [address] [place] [address] Dr. Ekta Funk EGFR-AF PARAGUAYAN 30 mL/min/1.73m2 Critically low >=60 [facility] Comment on above: Performed By: #### B 12FOL, VITAD, IRON #### [facility] [address] [place] [address] Dr. Ekta Funk EGFR-NON AF PARAGUAYAN 24 mL/min/1.73m2 Critically low >=60 [facility] Comment on above: Performed By: #### B 12FOL, VITAD, IRON #### [facility] [address] [address] [address] Ekta Funk Globulin (S) [Mass/Vol] 4.1 g/dL Normal [facility] Comment on above: Performed By: #### B 12FOL, VITAD, IRON #### [facility] [address] [address] [address] Ekta Funk Glucose [Mass/Vol] 115 mg/dL Critically high 74-106 [facility] Comment on above: Performed By: #### B 12FOL, VITAD, IRON #### [facility] [address] [place] [address] Dr. Ekta Funk Potassium [Moles/Vol] 5.2 mmol/L Critically high 3.5-5.1 [facility] Comment on above: Performed By: #### B 12FOL, VITAD, IRON #### [facility] [address] [place] [address] Dr. Ekta Funk Protein [Mass/Vol] 6.9 g/dL Normal 6.4-8.2 [facility] Comment on above: Performed By: #### B 12FOL, VITAD, IRON #### [facility] [address] [place] [address] Dr. Ekta Funk Sodium [Moles/Vol] 140 mmol/L Normal 136-145 [facility] Comment on above: Performed By: #### B 12FOL, VITAD, IRON #### [facility] [address] [place] [address] Dr. Ekta Funk Urea nitrogen [Mass/Vol] 45.0 mg/dL Critically high 7.0-18.0 [facility] Comment on above: Performed By: #### B 12FOL, VITAD, IRON #### [facility] [address] [place] [address] Dr. Ekta Funk Urea nitrogen/Creatinine [Mass ratio] 22.6 mg/mg Normal [facility] Comment on above: Performed By: #### B 12FOL, VITAD, IRON #### [facility] [address] [place] [address] Dr. Ekta Funk T4on 10-20-2022 T4 [Mass/Vol] 6.10 ug/dL Normal 4.80-13.90 [facility] Comment on above: Performed By: #### B 12FOL, VITAD, IRON #### [facility] [address] [place] [address] Dr. Ekta Funk TSHon 10-20-2022 TSH 1.336 uIU/mL Normal 0.358-3.740 [facility] Comment on above: Performed By: #### B 12FOL, VITAD, IRON #### [facility] [address] [place] [address] Dr. Ekta Funk UA RANDOM W/MICROSCOPICon BACTERIA TRACE Abnormal NONE SEEN [facility] Comment on above: Performed By: #### B 12FOL, VITAD, IRON #### [facility] [address] [place] [address] Dr. Ekta Funk Bilirubin Ql (U) Negative Normal NEGATIVE The [facility] Comment on above: Performed By: #### B 12FOL, VITAD, IRON #### [facility] [address] [place] [address] Dr. Ekta Funk CAST NONE SEEN Normal NONE SEEN [facility] Comment on above: Performed By: #### B 12FOL, VITAD, IRON #### [facility] [address] [place] [address] Dr. Ekta Funk Clarity (U) CLEAR Normal CLEAR The [facility] Comment on above: Performed By: #### B 12FOL, VITAD, IRON #### [facility] [address] [place] [address] Dr. Ekta Funk Color (U) LT. YELLOW Normal YELLOW The [facility] Comment on above: Performed By: #### B 12FOL, VITAD, IRON #### [facility] [address] [place] [address] Dr. Ekta Funk Crystals LM Nom (Urine sed) NONE SEEN Normal NONE SEEN [facility] Comment on above: Performed By: #### B 12FOL, VITAD, IRON #### [facility] [address] [address] [address] Ekta Funk Epithelial cells LM Ql (Urine sed) RARE Normal NONE SEEN /RARE The [facility] Comment on above: Performed By: #### B 12FOL, VITAD, IRON #### [facility] [address] [address] [address] Ekta Funk Glucose Ql (U) Negative Normal NEGATIVE The [facility] Comment on above: Performed By: #### B 12FOL, VITAD, IRON #### [facility] [address] [address] [address] Ekta Funk Hemoglobin Ql (U) Negative Normal NEGATIVE The [facility] Comment on above: Performed By: #### B 12FOL, VITAD, IRON #### [facility] [address] [place] [address] Dr. Ekta Funk Ketones Ql (U) Negative Normal NEGATIVE The [facility] Comment on above: Performed By: #### B 12FOL, VITAD, IRON #### [facility] [address] [address] [address] Ekta Funk LEUKOCYTES Negative Normal NEGATIVE [facility] Comment on above: Performed By: #### B 12FOL, VITAD, IRON #### [facility] [address] [place] [address] Dr. Ekta Funk MUCOUS NONE SEEN Normal NONE SEEN The [facility] Comment on above: Performed By: #### B 12FOL, VITAD, IRON #### [facility] [address] [address] [address] Ekta Funk Nitrite Ql (U) Negative Normal NEGATIVE The [facility] Comment on above: Performed By: #### B 12FOL, VITAD, IRON #### [facility] [address] [place] [address] Dr. Ekta Funk pH (U) 6.0 [pH] Normal 5-9 The [facility] Comment on above: Performed By: #### B 12FOL, VITAD, IRON #### [facility] [address] [address] [address] Ekta Funk RBC 0-2 Normal 0-2 The [facility] Comment on above: Performed By: #### B 12FOL, VITAD, IRON #### [facility] [address] [place] [address] Dr. Ekta Funk SPEC GRAVITY <=1.005 Abnormal 1.005-<=1.025 [facility] Comment on above: Performed By: #### B 12FOL, VITAD, IRON #### [facility] [address] [place] [address] Dr. Ekta Funk UA PROTEIN Negative Normal NEGATIVE/ TRACE The [facility] Comment on above: Performed By: #### B 12FOL, VITAD, IRON #### [facility] [address] [place] [address] Dr. Ekta Funk Urobilinogen Qn (U) 0.2 {Ivan'U}/dL Normal 0.2 - 1. 0 [facility] Comment on above: Performed By: #### B 12FOL, VITAD, IRON #### [facility] [address] [place] [address] Dr. Ekta Funk WBC NONE SEEN Normal NONE SEEN The [facility] Comment on above: Performed By: #### B 12FOL, VITAD, IRON #### [facility] [address] [place] [address] Dr. Ekta Funk BNPon 10-19-2022 Natriuretic peptide B (Bld) [Mass/Vol] 1355.0 pg/mL Critically high <=900.0 [facility] Comment on above: Performed By: #### B 12FOL, VITAD, IRON #### [facility] [address] [place] [address] Dr. Ekta Funk INSULINon 10-19-2022 Insulin 12.4 uIU/mL Normal 2.6-24.9 The [facility] Comment on above: Performed By: #### I NSULIN #### [facility] [address] [place] [address] Dr. Ekta Funk OCC BLD IMMUNO SCREENon OCCULT BLOOD Positive Abnormal NEGATIVE [facility] Comment on above: Performed By: #### B 12FOL, VITAD, IRON #### [facility] [address] [address] [address] Ekta Funk PROF CHEM 8 (BAS METB)on Anion gap [Moles/Vol] 15.8 mmol/L Normal [facility] Comment on above: Performed By: #### B 12FOL, VITAD, IRON #### [facility] [address] [place] [address] Dr. Ekta Funk Calcium [Mass/Vol] 8.8 mg/dL Normal 8.5-10.1 [facility] Comment on above: Performed By: #### B 12FOL, VITAD, IRON #### [facility] [address] [place] [address] Dr. Ekta Funk Chloride [Moles/Vol] 107 mmol/L Normal 98-107 [facility] Comment on above: Performed By: #### B 12FOL, VITAD, IRON #### [facility] [address] [place] [address] Dr. Ekta Funk CO2 [Moles/Vol] 21.5 mmol/L Normal 21.0-32.0 [facility] Comment on above: Performed By: #### B 12FOL, VITAD, IRON #### [facility] [address] [place] [address] Dr. Ekta Funk Creatinine [Mass/Vol] 1.62 mg/dL Critically high 0.55-1.02 [facility] Comment on above: Performed By: #### B 12FOL, VITAD, IRON #### [facility] [address] [place] [address] Dr. Ekta Funk EGFR-AF PARAGUAYAN 38 mL/min/1.73m2 Critically low >=60 [facility] Comment on above: Performed By: #### B 12FOL, VITAD, IRON #### [facility] [address] [place] [address] Dr. Ekta Funk EGFR-NON AF PARAGUAYAN 31 mL/min/1.73m2 Critically low >=60 [facility] Comment on above: Performed By: #### B 12FOL, VITAD, IRON #### [facility] [address] [address] [address] Ekta Funk Glucose [Mass/Vol] 134 mg/dL Critically high 74-106 T [facility] Comment on above: Performed By: #### B 12FOL, VITAD, IRON #### [facility] [address] [address] [address] Ekta Funk Potassium [Moles/Vol] 5.3 mmol/L Critically high 3.5-5.1 [facility] Comment on above: Performed By: #### B 12FOL, VITAD, IRON #### [facility] [address] [address] [address] Ekta Funk Sodium [Moles/Vol] 139 mmol/L Normal 136-145 [facility] Comment on above: Performed By: #### B 12FOL, VITAD, IRON #### [facility] [address] [place] [address] Dr. Ekta Funk Urea nitrogen [Mass/Vol] 37.0 mg/dL Critically high 7.0-18.0 [facility] Comment on above: Performed By: #### B 12FOL, VITAD, IRON #### [facility] [address] [place] [address] Dr. Ekta Funk Urea nitrogen/Creatinine [Mass ratio] 22.8 mg/mg Normal [facility] Comment on above: Performed By: #### B 12FOL, VITAD, IRON #### [facility] [address] [place] [address] Dr. Ekta Funk TROPONIN, HIGH SENSITIVITYon 10-19-2022 HSTROP 53.2 pg/mL Critically high 4.0-51.3 [facility] Comment on above: Result Comment: CUT- OFF POINTS HAVE BEEN ESTABLISHED BASED ON THE FOURTH UNIVERSAL DEFINITIONS OF MYOCARDIAL INFARCTION. THE UPPER REFERENCE LIMIT (URL) OF TROPONIN, DEFINED THE 99TH PERCENTILE OF cTnI DISTRIBUTION IN A REFERENCE POPULATION, HAS BEEN CONFIRMED THE DECISION THRESHOLD FOR DC DIAGNOSIS. Performed By: #### B 12FOL, VITAD, IRON #### [facility] [address] [place] [address] Dr. Ekta Funk BNPon 10-18-2022 Natriuretic peptide B (Bld) [Mass/Vol] 1386.0 pg/mL Critically high <=900.0 [facility] Comment on above: Performed By: #### C VDTBH #### [facility] [address] [place] [address] Dr. Ekta Funk CARDIAC BRITTANIE ADMITon 023 CK [Catalytic activity/Vol] 34 U/L Normal 26-192 The [facility] Comment on above: Performed By: #### C VDTBH #### [facility] [address] [place] [address] Dr. Ekta Funk CK.MB [Mass/Vol] 1.43 ng/mL Normal <=3.[address] [facility] Comment on above: Performed By: #### C VDTBH #### [facility] [address] [place] [address] Dr. Ekta Funk HSTROP 74.1 pg/mL Critically high 4.0-51.3 The [facility] Comment on above: Result Comment: CUT- OFF POINTS HAVE BEEN ESTABLISHED BASED ON THE FOURTH UNIVERSAL DEFINITIONS OF MYOCARDIAL INFARCTION. THE UPPER REFERENCE LIMIT (URL) OF TROPONIN, DEFINED THE 99TH PERCENTILE OF cTnI DISTRIBUTION IN A REFERENCE POPULATION, HAS BEEN CONFIRMED THE DECISION THRESHOLD FOR DC DIAGNOSIS. Performed By: #### C VDTBH #### [facility] [address] [place] [address] Dr. Ekta Funk EVELYN 52 ng/mL Normal 9-82 The [facility] Comment on above: Performed By: #### C VDTBH #### [facility] [address] [place] [address] Dr. Ekta Funk CBC AUTO DIFFon 10-18-2022 BASO # 0.0 103/ul Normal 0.0-0.1 [facility] Comment on above: Performed By: #### C BC #### [facility] [address] [place] [address] Dr. Ekta Funk Basophils/100 WBC (Bld) 0.3 % Normal 0.2-2.0 [facility] Comment on above: Performed By: #### C BC #### [facility] [address] [place] [address] Dr. Ekta Funk EO # 0.1 103/ul Normal 0.0-0.7 [facility] Comment on above: Performed By: #### C BC #### [facility] [address] [place] [address] Dr. Ekta Funk Eosinophils/100 WBC (Bld) 0.9 % Normal 0.9-7.0 [facility] Comment on above: Performed By: #### C BC #### [facility] [address] [place] [address] Dr. Ekta Funk Erythrocyte distribution width (RBC) [Ratio] 13.2 % Normal 11.0-15.0 [facility] Comment on above: Performed By: #### C BC #### [facility] [address] [place] [address] Dr. Ekta Funk Hematocrit (Bld) [Volume fraction] 38.9 % Normal 36.0-48.0 [facility] Comment on above: Performed By: #### C BC #### [facility] [address] [place] [address] Dr. Ekta Funk Hemoglobin (Bld) [Mass/Vol] 12.4 g/dL Normal 12.0-16.0 [facility] Comment on above: Performed By: #### C BC #### [facility] [address] [place] [address] Dr. Ekta Funk IG # 0.08 10e3/ul Critically high 0.00-0.03 [facility] Comment on above: Performed By: #### C BC #### [facility] [address] [place] [address] Dr. Ekta Funk IG % 0.5 % Normal 0.0-0.5 [facility] Comment on above: Performed By: #### C BC #### [facility] [address] [place] [address] Dr. Ekta Funk LYMPH # 1.4 103/ul Normal 1.2-3.8 [facility] Comment on above: Performed By: #### C BC #### [facility] [address] [place] [address] Dr. Ekta Funk Lymphocytes/100 WBC (Bld) 9.6 % Critically low 20.5-60.0 [facility] Comment on above: Performed By: #### C BC #### [facility] [address] [place] [address] Dr. Ekta Funk MANUAL DIFF REQ NO Normal [facility] Comment on above: Performed By: #### C BC #### [facility] [address] [place] [address] Dr. Ekta Funk MCH (RBC) [Entitic mass] 32.3 pg Normal 26.7-34.0 The [facility] Comment on above: Performed By: #### C BC #### [facility] [address] [place] [address] Dr. Ekta Funk MCHC (RBC) [Mass/Vol] 31.9 g/dL Normal 29.9-35.2 The [facility] Comment on above: Performed By: #### C BC #### [facility] [address] [place] [address] Dr. Ekta Funk MCV (RBC) [Entitic vol] 101.3 fL Critically high 81.0-99.0 [facility] Comment on above: Performed By: #### C BC #### [facility] [address] [place] [address] Dr. Ekta Funk MONO # 0.9 103/ul Critically high 0.3-0.8 [facility] Comment on above: Performed By: #### C BC #### [facility] [address] [place] [address] Dr. Ekta Funk Monocytes/100 WBC (Bld) 6.3 % Normal 1.7-12.0 The [facility] Comment on above: Performed By: #### C BC #### [facility] [address] [place] [address] Dr. Ekta Funk NEUT # 12.0 103/ul Critically high 1.4-6.[address] [facility] Comment on above: Performed By: #### C BC #### [facility] [address] [address] [address] Ekta Funk Neutrophils/100 WBC (Bld) 82.4 % Critically high 43.0-75.0 [facility] Comment on above: Performed By: #### C BC #### [facility] [address] [address] [address] Ekta Funk Platelet mean volume (Bld) [Entitic vol] 9.7 fL Normal 9.5-13.5 The [facility] Comment on above: Performed By: #### C BC #### [facility] [address] [address] [address] Ekta Funk PLT 176 103/ul Normal 150-450 The [facility] Comment on above: Performed By: #### C BC #### [facility] [address] [place] [address] Dr. Ekta Funk RBC 3.84 106/ul Critically low 4.20-5.40 [facility] Comment on above: Performed By: #### C BC #### [facility] [address] [place] [address] Dr. Ekta Funk WBC 14.6 103/ul Critically high 4.0-11.[address] [facility] Comment on above: Performed By: #### C BC #### [facility] [address] [place] [address] Dr. Ekta Funk FREE THYROXINE INDEX T7on FTI 2.34 Normal 1.30-4.50 The [facility] Comment on above: Performed By: #### C VDTBH #### [facility] [address] [place] [address] Dr. Ekta Funk T3U 36.0 % Normal 30.0-39.0 The [facility] Comment on above: Performed By: #### C VDTBH #### [facility] [address] [place] [address] Dr. Ekta Funk T4 [Mass/Vol] 6.50 ug/dL Normal 4.80-13.90 The [facility] Comment on above: Performed By: #### C VDTBH #### [facility] [address] [address] [address] Ekta Funk GLYCOHEMOGLOBIN A1Con 2022 ADA RECOMMENDATION SEE BELOW Normal The [facility] Comment on above: Result Comment: ADA RECOMMENDED LIMIT 4.0 - 6.0 ADA THERAPEUTIC TARGET < 7.0 ACTION SUGGESTED > 7.0 Performed By: #### B 12FOL, VITAD, IRON #### [facility] [address] [address] [address] Ekta Funk Glucose [Mass/Vol] 140 mg/dL Normal [facility] Comment on above: Performed By: #### B 12FOL, VITAD, IRON #### [facility] [address] [address] [address] Ekta Funk HbA1c (Bld) [Mass fraction] 6.5 % Critically high 4.5-6.2 [facility] Comment on above: Performed By: #### B 12FOL, VITAD, IRON #### [facility] [address] [address] [address] Ekta Funk IRONon 10-18-2022 Iron [Mass/Vol] 62.0 ug/dL Normal 50.0-170.0 [facility] Comment on above: Performed By: #### B 12FOL, VITAD, IRON #### [facility] [address] [place] [address] Dr. Ekta Funk LIPID PROFILEon 10-18-2022 CHOL-HDL RATIO NORM SEE BELOW Normal [facility] Comment on above: Result Comment: 3.3 - 4.4 LOW RISK 4.4 - 7.1 AVERAGE RISK 7.1 - 11.0 MODERATE RISK >11.0 HIGH RISK Performed By: #### C VDTBH #### [facility] [address] [address] [address] Ekta Funk Cholesterol [Mass/Vol] 242 mg/dL Critically high <=200 The [facility] Comment on above: Performed By: #### C VDTBH #### [facility] [address] [place] [address] Dr. Ekta Funk Cholesterol in HDL [Mass/Vol] 74 mg/dL Critically high 40-60 The [facility] Comment on above: Performed By: #### C VDTBH #### [facility] [address] [address] [address] Ekta Funk Cholesterol in LDL [Mass/Vol] 139.4 mg/dL Normal [facility] Comment on above: Performed By: #### C VDTBH #### [facility] [address] [address] [address] Ekta Funk Cholesterol.total/Ch olesterol in HDL [Mass ratio] 3.3 {ratio} Normal [facility] Comment on above: Performed By: #### C VDTBH #### [facility] [address] [address] [address] Ekta Funk HDL NORMAL > or = 60 mg/dl - LO W CARDIOVASCULAR RISK <40 mg/dl - HIGH CARDIOVASCULAR RISK Normal [facility] Comment on above: Performed By: #### C VDTBH #### [facility] [address] [place] [address] Dr. Ekta Funk LDL CALC NORMAL SEE BELOW Normal [facility] Comment on above: Result Comment: <100 mg/dl OPTIMAL 100 - 129 mg/dl NEAR OR ABOVE OPTIMAL 130 - 159 mg/dl BORDERLINE HIGH 160 - 189 mg/dl HIGH >190 mg/dl VERY HIGH Performed By: #### C VDTBH #### [facility] [address] [place] [address] Dr. Ekta Funk Triglyceride [Mass/Vol] 143 mg/dL Normal <=150 [facility] Comment on above: Performed By: #### C VDTBH #### [facility] [address] [place] [address] Dr. Ekta Funk VLDL CALC 28.6 mg/dL Normal [facility] Comment on above: Performed By: #### C VDTBH #### [facility] [address] [place] [address] Dr. Ekta Funk PROF 14(COMP METB)on 023 Albumin [Mass/Vol] 2.8 g/dL Critically low 3.4-5.0 Th [facility] Comment on above: Performed By: #### C VDTBH #### [facility] [address] [address] [address] Ekta Funk Albumin/Globulin [Mass ratio] 0.7 {ratio} Normal [facility] Comment on above: Performed By: #### C VDTBH #### [facility] [address] [address] [address] Ekta Funk ALP [Catalytic activity/Vol] 90 U/L Normal 46-116 [facility] Comment on above: Performed By: #### C VDTBH #### [facility] [address] [address] [address] Ekta Funk ALT [Catalytic activity/Vol] 26 U/L Normal 14-59 [facility] Comment on above: Performed By: #### C VDTBH #### [facility] [address] [place] [address] Dr. Ekta Funk Anion gap [Moles/Vol] 14.5 mmol/L Normal [facility] Comment on above: Performed By: #### C VDTBH #### [facility] [address] [place] [address] Dr. Ekta Funk AST [Catalytic activity/Vol] 14 U/L Critically low 15-37 [facility] Comment on above: Performed By: #### C VDTBH #### [facility] [address] [place] [address] Dr. Ekta Funk Bilirubin [Mass/Vol] 0.4 mg/dL Normal 0.2-1.0 [facility] Comment on above: Performed By: #### C VDTBH #### [facility] [address] [place] [address] Dr. Ekta Funk Calcium [Mass/Vol] 8.9 mg/dL Normal 8.5-10.1 The [facility] Comment on above: Performed By: #### C VDTBH #### [facility] [address] [address] [address] Ekta Funk Chloride [Moles/Vol] 106 mmol/L Normal 98-107 [facility] Comment on above: Performed By: #### C VDTB #### [facility] [address] [address] [address] Ekta Funk CO2 [Moles/Vol] 23.5 mmol/L Normal 21.0-32.0 [facility] Comment on above: Performed By: #### C VDTBH #### [facility] [address] [address] [address] Ekta Funk Creatinine [Mass/Vol] 1.70 mg/dL Critically high 0.55-1.02 [facility] Comment on above: Performed By: #### C VDTBH #### [facility] [address] [address] [address] Ekta Funk EGFR-AF PARAGUAYAN 36 mL/min/1.73m2 Critically low >=60 [facility] Comment on above: Performed By: #### C VDTBH #### [facility] [address] [place] [address] Dr. Ekta Funk EGFR-NON AF PARAGUAYAN 29 mL/min/1.73m2 Critically low >=60 [facility] Comment on above: Performed By: #### C VDTBH #### [facility] [address] [address] [address] Ekta Funk Globulin (S) [Mass/Vol] 4.0 g/dL Normal [facility] Comment on above: Performed By: #### C VDTBH #### [facility] [address] [place] [address] Dr. Ekta Funk Glucose [Mass/Vol] 99 mg/dL Normal 74-106 The [facility] Comment on above: Performed By: #### C VDTBH #### [facility] [address] [address] [address] Ekta Funk Potassium [Moles/Vol] 5.0 mmol/L Normal 3.5-5.1 The [facility] Comment on above: Performed By: #### C VDTBH #### [facility] [address] [address] [address] Ekta Fn[place] Protein [Mass/Vol] 6.8 g/dL Normal 6.4-8.2 The [facility] Comment on above: Performed By: #### C VDTBH #### [facility] [address] [place] [address] Dr. Ekta Funk Sodium [Moles/Vol] 139 mmol/L Normal 136-145 [facility] Comment on above: Performed By: #### C VDTBH #### [facility] [address] [place] [address] Dr. Ekta Funk Urea nitrogen [Mass/Vol] 36.0 mg/dL Critically high 7.0-18.0 [facility] Comment on above: Performed By: #### C VDTBH #### [facility] [address] [place] [address] Dr. Ekta Funk Urea nitrogen/Creatinine [Mass ratio] 21.2 mg/mg Normal [facility] Comment on above: Performed By: #### C VDTBH #### [facility] [address] [place] [address] Dr. Ekta Funk TSHon 10-18-2022 TSH 0.910 uIU/mL Normal 0.358-3.740 [facility] Comment on above: Performed By: #### C VDTBH #### [facility] [address] [place] [address] Dr. Ekta Funk Covid-19 PCR ([facility])on 09-10 SARS-CoV-2 (COVID-19) RNA GANESH+probe Ql (Unsp spec) Detected Abnormal NOT DETECTED [facility] Comment on above: Result Comment: This test is not yet approved or cleared by the [place] FDA. When there are no FDA-approved or cleared tests available, and other criteria are met, FDA can make tests available under an emergency access mechanism called an Emergency Use Authorization (EUA). The EUA for this test is supported by the [place] of Health and Human Service's declaration that [...] used). Performed By: #### C MP #### [facility] [address] [place] [address] Dr. Ekta Funk INFLUENZA A AND B AGon 09-25 [facility] SEE BELOW Normal The [facility] Comment on above: Result Comment: Nega tive for Flu A protein angiten. Infection due to Flu A cannot be ruled out. Flu A angiten in the sample may be below the detection limit of the test. Performed By: #### B 12FOL, VITAD, IRON #### [facility] [address] [place] [address] Dr. Ek[facility] Funk [facility] Normal [facility] Comment on above: Result Comment: Nega tive for Flu B protein antigen. Infection due to Flu B cannot be ruled out. Flu B antigen in the sample may be below the detection limit of the test. Performed By: #### B 12FOL, VITAD, IRON #### [facility] [address] [place] [address] Dr. Ekta Funk INFLUENZA A AG Negative Normal NEGATIVE SEE COMMENT [facility] Comment on above: Performed By: #### B 12FOL, VITAD, IRON #### [facility] [address] [place] [address] Dr. Ekta Funk INFLUENZA B AG Negative Normal NEGATIVE SEE COMMENT [facility] Comment on above: Performed By: #### B 12FOL, VITAD, IRON #### [facility] [address] [place] [address] Dr. Ekta Funk US CAROTID ART BILon [...] Date: 2022-05-26 16:06 Normal [facility] MRI BRAIN WO CONon 2 MRI BRAIN [...] changed since prior study. Electronically authenticated by: DNAIEL MARIE Date: 2022-05-25 10:45 Normal [facility] ECHOCARDIO M/2D COMPLETEon 0 05-24-2022 ECHOCARDIO M/2D COMPLETE Patient: SHEILA MAC Exam Date: 05/24/2022 : 1950 Gender:F Ordering : DR KRZYSZTOF HARP . Admission #: [id number] Family : Order #: [id number] CLICK HERE TO VIEW EXAM ECHOCARDIOGRAM REPORT [...] M.D. on 05/24/2022 at 14:45 Normal The [facility] BASIC METABOLIC PANELon - Calcium mass conc 9.4 mg/dL Normal 8.6-10.3 The [facility] Comment on above: Order Comment: No: D o not add to previous draw Performed By: #### 0 0071 #### [facility] [address] [place] [address], [place] Chloride molar conc 108 mmol/L High 98-107 The [facility] Comment on above: Order Comment: No: D o not add to previous draw Performed By: #### 0 0071 #### [facility] [address] [place] [address], [place] CO2 molar conc 22 mmol/L Normal 21-31 The [facility] Comment on above: Order Comment: No: D o not add to previous draw Performed By: #### 0 0071 #### [facility] [address] [place] [address], [place] Creatinine mass conc 1.18 mg/dL Normal 0.60-1.20 The [facility] Comment on above: Order Comment: No: D o not add to previous draw Performed By: #### 0 0071 #### [facility] [address] [place] [address], [place] GFR/1.73 sq M predicted among blacks MDRD vol rate/area (S/P/Bld) 55 ml/min/1.73sq m Abnormal >60 The [facility] Comment on above: Order Comment: No: D o not add to previous draw Performed By: #### 0 0071 #### [facility] [address] [place] [address], [place] GFR/1.73 sq M predicted among non-blacks MDRD vol rate/area (S/P/Bld) 45 ml/min/1.73sq m Abnormal >60 [facility] Comment on above: Order Comment: No: D o not add to previous draw Performed By: #### 0 0071 #### [facility] [address] [place] [address], [facility] Glucose mass conc 166 mg/dL High 70-100 The [facility] Comment on above: Order Comment: No: D o not add to previous draw Performed By: #### 0 0071 #### [facility] [address] [place] [id number], [facility] Potassium molar conc 4.1 mmol/L Normal 3.5-5.1 The [facility] Comment on above: Order Comment: No: D o not add to previous draw Performed By: #### 0 0071 #### [facility] [address] [place] [address], [facility] Sodium molar conc 140 mmol/L Normal 136-145 The [facility] Comment on above: Order Comment: No: D o not add to previous draw Performed By: #### 0 0071 #### [facility] [address] [place] [address], [facility] Urea nitrogen mass conc 21 mg/dL Normal 7-25 The [facility] Comment on above: Order Comment: No: D o not add to previous draw Performed By: #### 0 0071 #### [facility] [address] [place] [address], [facility] CBC COMPLETE BLOOD COUNTon 0 - Erythrocyte distribution width Ratio (RBC) 12.9 % Normal 11.5-15.0 The [facility] Comment on above: Order Comment: No: D o not add to previous draw Performed By: #### 5 [id number] #### [facility] [address] [place] [id number], [facility] Hematocrit Volume Fraction (Bld) 36.7 % Normal 36.0-45.0 The [facility] Comment on above: Order Comment: No: D o not add to previous draw Performed By: #### 5 [id number] #### [facility] [address] [place] [address], [facility] Hemoglobin mass conc (Bld) 12.4 g/dL Normal 12.0-15.0 The [facility] Comment on above: Order Comment: No: D o not add to previous draw Performed By: #### 5 [id number] #### [facility] [address] [place] [address], [facility] MCH Entitic mass (RBC) 31.2 pg Normal 27.0-33.0 The [facility] Comment on above: Order Comment: No: D o not add to previous draw Performed By: #### 5 0608 #### [facility] [address] [place] [address], [facility] MCHC mass conc (RBC) 33.8 g/dL Normal 32.0-35.0 [facility] Comment on above: Order Comment: No: D o not add to previous draw Performed By: #### 5 0608 #### [facility] [address] [place] [address], [facility] MCV Entitic volume (RBC) 92.4 fL Normal 82.0-98.0 The [facility] Comment on above: Order Comment: No: D o not add to previous draw Performed By: #### 5 0608 #### [facility] [address] [place] [address], [facility] Nucleated RBC/100 WBC Ratio (Bld) 0 % Normal 0-0 The [facility] Comment on above: Order Comment: No: D o not add to previous draw Performed By: #### 5 [id number] #### [facility] [address] [place] [address], [facility] PLAT CNT 227 10*3/uL Normal 150-400 The [facility] Comment on above: Order Comment: No: D o not add to previous draw Performed By: #### 5 [id number] #### [facility] [address] [facility] [place] [address], [facility] RBC #/vol (Bld) 3.97 10*6/uL Normal 3.80-5.00 [facility] Comment on above: Order Comment: No: D o not add to previous draw Performed By: #### 5 [id number] #### [facility] [address] WBC #/vol (Bld) 5.55 10*3/uL Normal 4.00-10.60 [facility] Comment on above: Order Comment: No: D o not add to previous draw Performed By: #### 5 [id number] #### [facility] [address] Cardiovascular Lab Reporton 11-20-2018 Cardiovascular Lab Report [facility] MR #: [id number] Department of Physician: [place] Shellie Gaspar M.D. Division of Service Date: 11/20/2018 Cardiology Birthdate: 1950 Adult Cardiovascular Room #: 3AB [id number] [place] [address] Cardiovascular Laboratory Report INDICATION: The patient is a 68-year-old woman who was evaluated in Cardiology Clinic because of new onset symptoms of shortness of breath on mild exertion. Her stress test showed evidence of hhdhg-px-afzezdfd area of inferoapical ischemia; because of that, she was referred for cardiac catheterization. PROCEDURES: 1. Right heart catheterization. 2. Bilateral selective coronary angiography. 3. Limited right femoral angiography. METHOD: Procedure was explained patient with risks and benefits. She signed informed consent. She was brought to [employer] in a fasting state. The right groin area was prepped and draped in usual fashion. Using micropuncture technique, the right common femoral artery was accessed. The inner cannula was advanced. Limited femoral angiography was performed followed by upsizing to a 6-Ugandan x 11 cm sheath. Access was also obtained using the same technique in the right common femoral vein and a 6-Ugandan x 11 cm sheath was placed. A 6-Ugandan Michel catheter was used for right heart catheterization with measurement of pressures and calculation of cardiac output using the estimated Ivory method. Michel catheter was removed. Bilateral selective coronary angiography was then performed using 6-Ugandan JL4 and JR4 diagnostic catheters. Catheters were [...] Gaspar M.D. Date Trans: 11/20/2018 09:31 A/mmo [id number] cc: Krzysztof Harp M.D. [place] [id number] [facility] [place] [address] Normal [facility] BASIC METABOLIC PANELon 11-08 Calcium mass conc 9.5 mg/dL Normal 8.6-10.3 [facility] Comment on above: Order Comment: No: D o not add to previous draw Performed By: #### 0 0071 #### [facility] [address] [place] [address], [place] Chloride molar conc 105 mmol/L Normal 98-107 The [facility] Comment on above: Order Comment: No: D o not add to previous draw Performed By: #### 0 0071 #### [facility] [address] [place] [address], [place] CO2 molar conc 24 mmol/L Normal 21-31 [facility] Comment on above: Order Comment: No: D o not add to previous draw Performed By: #### 0 0071 #### [facility] [address] [place] [address], [place] Creatinine mass conc 1.42 mg/dL High 0.60-1.20 [facility] Comment on above: Order Comment: No: D o not add to previous draw Performed By: #### 0 0071 #### [facility] [address] [place] [address], [place] GFR/1.73 sq M predicted among blacks MDRD vol rate/area (S/P/Bld) 45 ml/min/1.73sq m Abnormal >60 [facility] Comment on above: Order Comment: No: D o not add to previous draw Performed By: #### 0 0071 #### [facility] [address] [place] [address], [place] GFR/1.73 sq M predicted among non-blacks MDRD vol rate/area (S/P/Bld) 36 ml/min/1.73sq m Abnormal >60 [facility] Comment on above: Order Comment: No: D o not add to previous draw Performed By: #### 0 0071 #### [facility] [address] [place] [address], [facility] Glucose mass conc 86 mg/dL Normal 70-100 [facility] Comment on above: Order Comment: No: D o not add to previous draw Performed By: #### 0 0071 #### [facility] [address] [place] [address], [facility] Potassium molar conc 4.2 mmol/L Normal 3.5-5.1 [facility] Comment on above: Order Comment: No: D o not add to previous draw Performed By: #### 0 0071 #### [facility] [address] [place] [address], [facility] Sodium molar conc 138 mmol/L Normal 136-145 [facility] Comment on above: Order Comment: No: D o not add to previous draw Performed By: #### 0 0071 #### [facility] [address] [place] [address], [facility] Urea nitrogen mass conc 19 mg/dL Normal 7-25 [facility] Comment on above: Order Comment: No: D o not add to previous draw Performed By: #### 0 0071 #### [facility] [address] [place], [place] [address] CBC COMPLETE BLOOD COUNTon 0 - Erythrocyte distribution width Ratio (RBC) 13.0 % Normal 11.5-15.0 [facility] Comment on above: Order Comment: No: D o not add to previous draw Performed By: #### 5 0608 #### [facility] [address] [place] [address], [facility] Hematocrit Volume Fraction (Bld) 38.3 % Normal 36.0-45.0 [facility] Comment on above: Order Comment: No: D o not add to previous draw Performed By: #### 5 0608 #### [facility] [address] Hemoglobin mass conc (Bld) 12.6 g/dL Normal 12.0-15.0 [facility] Comment on above: Order Comment: No: D o not add to previous draw Performed By: #### 5 0608 #### [facility] [address] MCH Entitic mass (RBC) 31.1 pg Normal 27.0-33.0 [facility] Comment on above: Order Comment: No: D o not add to previous draw Performed By: #### 5 0608 #### [facility] [address] MCHC mass conc (RBC) 32.9 g/dL Normal 32.0-35.0 [facility] Comment on above: Order Comment: No: D o not add to previous draw Performed By: #### 5 0608 #### [facility] [address] MCV Entitic volume (RBC) 94.6 fL Normal 82.0-98.0 [facility] Comment on above: Order Comment: No: D o not add to previous draw Performed By: #### 5 0608 #### [facility] [address] Nucleated RBC/100 WBC Ratio (Bld) 0 % Normal 0-0 [facility] Comment on above: Order Comment: No: D o not add to previous draw Performed By: #### 5 0608 #### [facility] [address] [place] [address], [facility] PLAT CNT 266 10*3/uL Normal 150-400 [facility] Comment on above: Order Comment: No: D o not add to previous draw Performed By: #### 5 0608 #### [facility] [address] RBC #/vol (Bld) 4.05 10*6/uL Normal 3.80-5.00 [facility] Comment on above: Order Comment: No: D o not add to previous draw Performed By: #### 5 0608 #### [facility] [address] WBC #/vol (Bld) 9.01 10*3/uL Normal 4.00-10.60 [facility] Comment on above: Order Comment: No: D o not add to previous draw Performed By: #### 5 0608 #### [facility] [address] [facility] [address] PROTHROMBIN TIMEon 9 INR Coag RelTime (PPP) 1.07 {INR} Normal 0.91-1.16 [facility] Comment on above: Order Comment: [...] 1995;108:231S-246S. Performed By: #### 5 6101 #### [facility] 3000 [facility]. [address] Prothrombin time (PT) Coag time (PPP) 13.9 s Normal 12.3-14.8 [facility] Comment on above: Order Comment: No: D o not add to previous draw Result Comment: ALL RESULTS MUST BE INTERPRETED WITH RESPECT TO BLOOD DRAWING ARTIFACT OR DILUTION ERROR OF ANTICOAGULANT AT THE TIME OF SAMPLING. Performed By: #### 5 [id number] #### [facility] [address] Vital Signs Date Time Vital Sign Value Performing Clinician Faci lity 08-11-2024 14:21-0500 Body mass index (BMI) [Ratio] 23.52 kg/m2 Christopher Szl.it DO Work Phone: [facility] 08-11-2024 14:21-0500 Body weight 60.24 kg Christopher Szl.it DO Work Phone: [facility] 08-11-2024 14:21-0500 Diastolic blood pressure 82 mm[Hg] Christopher Shama DO Work Phone: [facility] 08-11-2024 14:21-0500 Heart rate 79 /min Christopher Shama DO Work Phone: [facility] 08-11-2024 14:21-0500 SaO2% (BldA) [Mass fraction] 97 % Christopher Shama DO Work Phone: [facility] 08-11-2024 14:21-0500 Systolic blood pressure 130 mm[Hg] Christopher Shama DO Work Phone: [facility] 07-14-2024 13:28-0500 Body mass index (BMI) [Ratio] 23.52 kg/m2 Christopher Shama DO Work Phone: [facility] 07-14-2024 13:28-0500 Body weight 60.24 kg Christopher Shama DO Work Phone: [facility] 07-14-2024 13:28-0500 Diastolic blood pressure 101 mm[Hg] Christopher Shama DO Work Phone: [facility] 07-14-2024 13:28-0500 Heart rate 87 /min Christopher Shama DO Work Phone: [facility] 07-14-2024 13:28-0500 SaO2% (BldA) [Mass fraction] 91 % Christopher Shama DO Work Phone: [facility] 07-14-2024 13:28-0500 Systolic blood pressure 155 mm[Hg] Christopher Shama DO Work Phone: [facility] 03-26-2024 11:35-0400 Diastolic blood pressure 106 mm[Hg] MD Krzysztof Harp Work Phone: [facility] 03-26-2024 11:35-0400 Heart rate 76 /min MD Krzysztof Harp Work Phone: [facility] 03-26-2024 11:35-0400 Respiratory rate 18 /min MD Krzysztof Harp Work Phone: [facility] 03-26-2024 11:35-0400 SaO2% (BldA) [Mass fraction] 96 % MD Krzysztof Harp Work Phone: [facility] 03-26-2024 11:35-0400 Systolic blood pressure 152 mm[Hg] MD Krzysztof Harp Work Phone: [facility] 03-26-2024 10:24-0400 Body height 157.48 cm MD Krzysztof Harp Work Phone: [facility] 03-26-2024 10:24-0400 Body weight 62.14 kg MD Krzysztof Harp Work Phone: [facility] 02-19-2024 09:07-0400 Body height 157.48 cm MD Krzysztof Harp Work Phone: [facility] 02-19-2024 09:07-0400 Body mass index (BMI) [Ratio] 24.7 kg/m2 MD Krzysztof Harp Work Phone: [facility] 02-19-2024 09:07-0400 Body weight 61.23 kg MD Krzysztof Harp Work Phone: [facility] 02-19-2024 09:07-0400 Diastolic blood pressure 105 mm[Hg] MD Krzysztof Harp Work Phone: [facility] 02-19-2024 09:07-0400 Heart rate 60 /min MD Krzysztof Harp Work Phone: [facility] 02-19-2024 09:07-0400 Systolic blood pressure 146 mm[Hg] MD Krzysztof Harp Work Phone: [facility] 02-05-2024 13:37-0400 Diastolic blood pressure 47 mm[Hg] MD Krzysztof Harp Work Phone: [facility] 02-05-2024 13:37-0400 Heart rate 78 /min MD Krzysztof Harp Work Phone: [facility] 02-05-2024 13:37-0400 Respiratory rate 16 /min MD Krzysztof Harp Work Phone: [facility] 02-05-2024 13:37-0400 SaO2% (BldA) [Mass fraction] 97 % MD Krzysztof Harp Work Phone: [facility] 02-05-2024 13:37-0400 Systolic blood pressure 122 mm[Hg] MD Krzysztof Harp Work Phone: [facility] 02-05-2024 11:35-0400 Body height 157.48 cm MD Krzysztof Harp Work Phone: [facility] 02-05-2024 11:35-0400 Body temperature 99.1 [degF] MD Krzysztof Harp Work Phone: [facility] 02-05-2024 11:35-0400 Body weight 62.14 kg MD Krzysztof Harp Work Phone: [facility] Encounters Encounter Date Encounter Type Care Provider Facility Start: 08-11-2024 End: 08-11-2024 ambulatory RAVEN SESAY Not Available Start: 08-11-2024 End: 08-11-2024 Office outpatient visit 25 minutes Raven Sesay DO Work Phone: [facility] [email or web address] [address] Comment on above: Left hand pain (Prim pérez Dx); Primary osteoarthritis of hand, unspecified laterality Start: 07-28-2024 End: 07-28-2024 [facility] Start: 07-22-2024 End: 07-22-2024 ambulatory KRZYSZTOF Marmolejo [facility] Start: 07-17-2024 End: 07-17-2024 Bamboo flowsheet Raven Sesay DO Work Phone: [facility] [email or web address] [address] Start: 07-17-2024 End: 07-17-2024 Bamboo flowsheet Raven Sesay DO Work Phone: [facility] [email or web address] [address] Start: 07-17-2024 End: 07-17-2024 Patient encounter procedure [facility] DO [facility] Comment on above: Cervical radiculopat hy (Primary Dx); Paresthesia Start: 07-17-2024 End: 07-17-2024 ambulatory RAVEN SESAY Not Available Start: 07-16-2024 End: 07-16-2024 ambulatory [facility] Start: 07-15-2024 End: 07-15-2024 ambulatory CLEVE SHETH Not Available Start: 07-15-2024 End: 07-15-2024 Office outpatient visit 10 minutes Cleve Sheth DO Work Phone: [facility] Comment on above: Chronic right hip pa in (Primary Dx); Sacral insufficiency fracture with routine healing, subsequent encounter; Closed fracture of multiple pubic rami, right, initial encounter ([facility]) Start: 07-14-2024 End: 07-14-2024 Bamboo flowsheet Raven Sesay DO [facility] Start: 07-14-2024 End: 07-14-2024 Bamboo flowsheet Raven Sesay DO Work Phone: [facility] [place] [address] Start: 07-14-2024 End: 07-14-2024 Office outpatient new 30 minutes Raven Shama DO Work Phone: [facility] [place] [address] Comment on above: Paresthesia (Primary Dx) Start: 07-14-2024 End: 07-14-2024 ambulatory RAVEN SESAY Not Available Start: 06-17-2024 End: 06-17-2024 Bamboo flowsheet Cleve Sheth DO Work Phone: [facility] Start: 06-17-2024 End: 06-17-2024 Bamboo flowsheet Cleve Sheth DO Work Phone: [facility] Start: 06-17-2024 End: 06-17-2024 Office outpatient visit 25 minutes Cleve Sheth DO Work Phone: [facility] Comment on above: Chronic right hip pa in (Primary Dx); Sacral insufficiency fracture, initial encounter ([facility]); Closed fracture of multiple pubic rami, right, initial encounter ([facility]) Start: 06-17-2024 End: 06-17-2024 ambulatory CLEVE SHETH Not Available Start: 06-13-2024 End: 06-13-2024 Emergency department patient visit KRZYSZTOF H[facility] Start: 06-12-2024 End: 06-12-2024 ambulatory CLEVE [...] / Non-visit MD Carrie Harp Work Phone: [facility] Work Phone: Start: 03-26-2024 End: 03-26-2024 Admission to same day surgery center MD Krzysztof Harp Work Phone: [facility] Work Phone: Start: 03-26-2024 End: 03-26-2024 ambulatory MD Krzysztof Harp Work Phone: [facility] Work Phone: Start: 02-19-2024 End: 02-19-2024 ambulatory MD Krzysztof Harp Work Phone: [facility] Work Phone: Start: 02-19-2024 End: 02-19-2024 Patient encounter procedure MD Krzysztof Harp Work Phone: [facility] Work Phone: Start: 02-05-2024 Non-patient / Non-visit MD Carrie Harp Work Phone: [facility] Work Phone: Start: 02-05-2024 End: 02-05-2024 Admission to same day surgery center MD Krzysztof Harp Work Phone: [facility] Work Phone: Start: 02-05-2024 End: 02-05-2024 ambulatory MD Krzysztof Harp Work Phone: [facility] Work Phone: Start: 01-16-2024 Non-patient / Non-visit MD Carrie Harp Work Phone: [facility] Work Phone: Start: 01-09-2024 End: 01-09-2024 ambulatory DARSHAN HERNANDEZ Not Available Start: 01-07-2024 ambulatory KRZYSZTOF HARP [facility] Start: 01-16-2023 ambulatory JN GARCIA . Facility :[facility]1 Start: 01-15-2023 End: 01-15-2023 ambulatory APRIL CASTANEDA . Facility:[facility] Start: 01-10-2023 End: 01-11-[address] KRZYSZTOF HARP . Facility:[facility] Start: 12-15-2022 End: 12-15-2022 ambulatory APRIL CASTANEDA . Facility:[facility] Start: 12-15-2022 [facility] Start: 12-05-2022 End: 12-06-[address] [...] DEFAULT PHYSICIAN Facility:[facility] Procedures Date Procedure Procedure Detail [...] 08/11/2024 2:15 PM EST Office Visit [facility] [address] [place] [phone] Raven Sesay DO [address] [place] [address] [facility] Start: 07-17-2024 End: 07-17-2024 [facility] Comment on above: Arrived Start: 07-15-2024 End: 07-15-2024 Patient encounter procedure [facility] Start: 07-14-2024 End: 07-14-2025 EMG 1 Extremeity EMG 1 Extremeity Neurology Routine Paresthesia Expected: 07/14/2024, Expires: 07/14/2025 [facility] Work Phone: Comment on above: Expected: 07/14/2024 , Expires: 07/14/2025 Start: 07-14-2024 End: 07-14-2024 [facility] Comment on above: Brachial plexopathy; Ulnar neuropathy of left upper extremity Start: 06-17-2024 End: 06-17-2024 Patient encounter procedure 06/17/2024 1:30 PM EDT Office Visit [facility] [address] [facility] [address] [place] [address] Cleve Sheth DO [address] [facility] [address] [place] [address] Chronic right hip pain (Primary Dx); Sacral insufficiency fracture, initial encounter (CMS/HCC); Closed fracture of multiple pubic rami, right, initial encounter (CMS/HCC) [facility] Comment on above: Chronic right hip pa in (Primary Dx); Sacral insufficiency fracture, initial encounter (CMS/HCC); Closed fracture of multiple pubic rami, right, initial encounter (CMS/HCC) Start: 06-16-2024 End: 06-16-2024 Patient encounter procedure 06/16/2024 12:30 PM EDT Office [facility] [address] [place] [address] Raven Sesay DO [address] [place] [address] [facility] [address] Start: 05-11-2024 Influenza vaccination Influenza Vacc ine (#1) [facility] Start: 03-26-[address] [facility] Start: 02-05-[address] [facility] Patient Education [facility] Work Phone: Immunizations Immunization Date Immunization Notes Care Provider Kimberly flaviopaolo 06-19-2024 influenza virus vacc ine, unspecified formulation Raven Sesay DO Work Phone: [facility] 06-05-2023 Influenza, Seasonal, Quadrivalent, Adjuvanted Cleve Sheth DO Work Phone: [facility] 06-05-2023 influenza virus vacc ine, unspecified formulation Cleve Davisonston DO Work Phone: [facility] 06-12-2022 influenza, high dose seasonal, preservative-free Cleve Sheth DO Work Phone: [facility] 05-30-2022 Influenza, High-dose Seasonal, Quadrivalent, Preservative Free Cleve Sheth DO Work Phone: [facility] 06-15-2021 Influenza, High-dose Seasonal, Quadrivalent, Preservative Free Cleve Meryl DO Work Phone: [facility] 01-10-2021 SARS-CoV-2, Unspecified Amando s Meryl DO Work Phone: [facility] 06-18-2018 influenza, high dose seasonal, preservative-free Cleve Sheth DO Work Phone: [facility] 05-22-2017 influenza, injectabl e, quadrivalent, preservative free Cleve Sheth DO Work Phone: [facility] 06-14-2016 influenza, high dose seasonal, preservative-free Cleve Sheth DO Work Phone: [facility] 06-03-2015 influenza, high dose seasonal, preservative-free Cleve Sheth DO Work Phone: [facility] 09-10-2014 pneumococcal conjuga te vaccine, 13 valent Cleve Sheth DO Work Phone: [facility] 06-10-2014 influenza, seasonal, injectable Cleve Sheth DO Work Phone: [facility] 08-11-2013 zoster vaccine, live Cleve ponce DO Work Phone: [facility] 07-14-2013 pneumococcal polysaccharide vaccine, 23 valent Cleve Sheth DO Work Phone: [facility] 06-30-2013 seasonal influenza, intradermal, preservative free Cleve Sheth DO Work Phone: [facility] Healthcare Payers Date Payer Category Payer Self-pay 2021 Medicare ANTHEM MEDICARE ADVANTAGE ANTHEM MEDICARE ADVANTAGE [id number] 2021-Present [address] [place] [id number] 2021 Medicare (Managed Care) [facility] ADVANTAGE Member Subscriber Plan / Payer (Effective 2021-Present) Name: Bryanrochelle Sheila A Relation to Subscriber: Self Name: Sheila Mac Payer ID: Not on file Group ID: [id number] Type: Not on file Address: [address] [place] [id number] 2015 Medicare [id number] 1959 Unknown [id number] 1948 Unknown [id number] 2..840.1.659858.3.579. 2.647 1948 Unknown [id number] 2..840.1.040640.3.579. 2.647 1948 Unknown [id number] ..840.1.569312.3.579. 2.647 1948 Unknown [id number] 2.16.840.1.716776.3.579. 2.647 1948 Unknown [id number] 2.16.840.1.680429.3.579. 2.647 1948 Unknown [id number] 2.16.840.1.171585.3.579. 2.593 1948 Unknown [id number] 2.16.840.1.131324.3.579. 2.593 1948 Unknown [id number] 2.16.840.1.467159.3.579. 2.593 1948 Unknown [id number] 2.16.840.1.484892.3.579. 2.59 1948 Unknown [id number] 2.16.840.1.355319.3.579. 2.59 1948 Unknown [id number] 2.16.840.1.362794.3.579. 2.593 1948 Unknown [id number] 2.16.840.1.583051.3.579. 2.59 1948 Unknown [id number] 2.16.840.1.852799.3.579. 2.593 1948 Unknown [id number] 2.16.840.1.807839.3.579. 2.593 1948 Unknown [id number] 2.16.840.1.784938.3.579. 2.593 1948 Unknown [id number] 2.16.840.1.960491.3.579. 2.593 1948 Unknown [id number] 2.16.840.1.736773.3.579. 2.593 1948 Unknown [id number] 2.16.840.1.721349.3.579. 2.593 1948 Unknown [id number] 2.16.840.1.821854.3.579. 2.593 1948 Unknown [id number] 2.16.840.1.619417.3.579. 2.593 1948 Unknown [id number] 2.16.840.1.718866.3.579. 2.593 1948 Unknown [id number] 2.16840.1.649203.3.579. 2.593 1948 Unknown [id number] 2.16840.1.791522.3.579. 2.593 1948 Unknown [id number] 2.16840.1.847407.3.579. 2.593 1948 Unknown [id number] 2.840.1.716019.3.579. 2.1285 1948 Unknown [id number] 2.840.1.252768.3.579. 2.1285 1948 Unknown [id number] 2.840.1.288452.3.579. 2.1285 1948 Unknown [id number] 2.840.1.244287.3.579. 2.1285 1948 Unknown [id number] 2.840.1.416377.3.579. 2.128 1948 Unknown [id number] 2.840.1.695031.3.579. 2.128 1948 Unknown [id number] 2.16840.1.136891.3.579. 2.128 1948 Unknown [id number] 2.16840.1.889896.3.579. 2.1259 1948 Unknown [id number] 2.16.840.1.780364.3.579. 2.1259 1948 Unknown [id number] 2.16840.1.019474.3.579. 2.1258 1948 Unknown [id number] 2.16.840.1.873474.3.579. 2.1258 1948 Unknown [id number] 2.16.840.1.208524.3.579. 2.1258 1948 Unknown [id number] 2.16.840.1.689856.3.579. 2.1258 1948 Unknown [id number] 2.16.840.1.751453.3.579. 2.1258 1948 Unknown [id number] 2.16.840.1.810220.3.579. 2.1258 1948 Unknown [id number] 2.16.840.1.522783.3.579. 2.1258 1948 Unknown [id number] 2.16840.1.285552.3.579. 2.1258 1948 Unknown [id number] 2.16.840.1.538374.3.579. 2.1259 Medicare [id number] Unknown Unknown [id number] 2.16840.1.107394.3.579. 2.531 Unknown [id number] 2.16840.1.591317.3.579. 2.531 Social History Date Type Detail Facility Start: 05-04-2023 End: 02-05-2024 Tobacco smoking status LAIS Never smoked tobacco (finding) [facility] Start: 1950 Sex Assigned At Female F [facility] Start: 01-09-2024 End: 07-14-2024 Alcoholic beverage intake Lifetime non-drinker (finding) [facility] Start: 01-09-2024 End: 07-14-2024 History of Social function [facility] Start: 01-09-2024 End: 07-14-2024 Tobacco use panel [facility] Start: 1950 Sex assigned at [...] headaches. Past Medical History: Diagnosis Date Diabetes ([facility]) Diverticulitis Gastric ulcer GERD (gastroesophageal reflux disease) HTN (hypertension) ([facility] [facility] Osteoporosis ([facility]) Pancreatitis Rheumatic fever Past Surgical History: Procedure Laterality Date APPENDECTOMY BACK SURGERY 1991 HEART CATH MAMMOGRAPHY 2013 HYSTERECTOMY Diabetes LUMBAR SPINE SURGERY NECK SURGERY OTHER SURGICAL HISTORY Sigmoid Diverticulosis OTHER SURGICAL HISTORY 2017 perforated ulcer WI ARTHRS KNE SURG W/MENISCECTOMY MED/LAT W/SHVG Right [...] , wrist extensors , wrist flexor , gasket notcher strength 5/5. LUE Strength deltoid , biceps , triceps , wrist extensors , wrist flexor , gasket notcher strength 5/5. RLE Strength illopsoas, quadriceps, tibialis [...] reflex 0 . Metzger's sign negative. Coordination: Poqnwz-nr-syzi testing and rapid alternating movements are normal Gait: Patient ambulates with a walker Review and summary of old records: EMG of the left upper extremity on 07/17/2024: A remote C8 radiculopathy on the left which is kayq-xi-nsynuvex. No evidence of plexopathy or mononeuropathy. Venous [...] return instructions documented in this encounter [facility] 07-17-2024 History of Presen t illness Narrative Images from the original note were not included. Reason for Appointment: EMG Patient: Sheila Mac : 1950 EMG Computer: [employer] Referring Physician: Dr. Raven Sesay EMG: CINTHYA meteorology teacher: Jarrett Palmer RT(R) Office Location: [place] Reason for EMG: c/o numbness/tingling in left [...] the test. documented in this encounter [facility] 07-15-2024 History of Presen t illness Narrative Images from the original note were not included. HISTORY OF PRESENT ILLNESS: Sheila Mac is an 74 y.o. @ female. Chief complaint RT hip pain RT hip: using calcitonin NS Pt went to [facility] ER 06/13, X-rays done pelvis and lumbar. RX for lidoderm patches given, she states she could hardly walk. RT hip pain x 3-4 months, worsened on 05/31 after going to the grocery store. Denies injury. She had injections at [facility] in April without relief. She saw Dr Harp 06/02 and 06/04, given IM injections-no relief. She is walking better, using rollator. Mild ache in the thigh. Using pain spray daily Saw Dr Harp 06/02 and 06/04. XR done at [facility] 06/02/24. Using hot icy hot. Given IM torodol, Tramadol RX and PT ordered, XR [facility] 06/05/24, MRI [facility] 06/12/24, [facility] ER 06/13/24, lidoderm patches, calcitonin NS [...] IMAGING: June 05, 2024 x-rays from the [place] office AP pelvis and lateral of the right hip demonstrate an intact hip joint space. There are no fractures detected. The bone has an osteopenic appearance. The joint spaces are symmetric. There is no obvious effusion or soft tissue swelling. Impression: No acute findings on x-rays of the right hip Hemal Sheth D.O. MRI of the right hip from the [facility] center. There is a sacral insufficiency fracture [...] of multiple pubic rami, right, initial encounter ([facility]) S32.591A calcitonin, salmon, (Miacalcin) 200 [...] documented in this encounter [facility] 07-14-2024 History of Presen t illness [...] Diverticulosis OTHER SURGICAL HISTORY 2017 perforated ulcer WI ARTHRS KNE SURG W/MENISCECTOMY MED/LAT W/SHVG Right [...] , wrist extensors , wrist flexor , gasket notcher strength 5/5. LUE Strength deltoid , biceps , triceps , wrist extensors , wrist flexor , gasket notcher strength 5/5. RLE Strength illopsoas, quadriceps, tibialis [...] reflex 0 . Metzger's sign negative. Coordination: Sbfwcd-bf-wwmh testing and rapid alternating movements are normal [...] return instructions documented in this encounter [facility] 06-17-2024 History of Presen t illness Narrative Images from the original note were not included. HISTORY OF PRESENT ILLNESS: Sheila Mac is an 74 y.o. @ female. Chief complaint RT hip pain RT hip: here for MRI results [facility] 06/12/24 Pt went to [facility] ER 06/13, X-rays done pelvis and lumbar. RX for lidoderm patches given, she states she could hardly walk. RT hip pain x 2-3 months, worsened on 05/31 after going to the grocery store. Denies injury. She had injections at [facility] in April without relief. She saw Dr [...] Harp 06/02 and 06/04. XR done at [facility] 06/02/24. Using hot icy hot. Given IM torodol, Tramadol RX and PT ordered, XR [facility] [facility] 06/05/24, MRI [facility] 06/12/24, [facility] ER 06/13/24, lidoderm patches I reviewed notes from [facility] emergency department dated June 13, 2024. Patient [...] HISTORY: Past Medical History: Diagnosis Date Diabetes ([facility]) Diverticulitis Gastric ulcer GERD (gastroesophageal reflux disease) HTN (hypertension) ([facility]) Osteoporosis ([facility]) Pancreatitis Rheumatic fever ALLERGIES: Allergies [...] IMAGING: June 05, 2024 x-rays from the [place] office AP pelvis and lateral of the right hip demonstrate an intact hip joint space. There are no fractures detected. The bone has an osteopenic appearance. The joint spaces are symmetric. There is no obvious effusion or soft tissue swelling. Impression: No acute findings on x-rays of the right hip Hemal Sheth D.O. I reviewed an MRI of the right hip from the [place] [facility] center. There is a sacral insufficiency fracture and suspected insufficiency fractures of the right superior and inferior pubic rami. The right hip joint is intact and there are no fractures in the hip. There is loss of articular cartilage in the right hip consistent with arthritis. ASSESSMENT: ICD-10-CM 1. Chronic right hip pain M25.551 G89.29 2. Sacral insufficiency fracture, initial encounter ([facility]) M84.48XA 3. Closed fracture of multiple pubic rami, right, initial encounter ([facility]) S32.591A calcitonin, salmon, (Miacalcin) 200 [...] in this encounter [facility] 06-05-2024 History of Presen t illness Narrative Images from the original note were not included. HISTORY OF PRESENT ILLNESS: Shelia Mac is an 74 y.o. @ female. Chief complaint RT hip pain New problem: RT hip pain. Dr Harp referral. XR [facility] 06/03/24 RT hip pain x 2-3 months, worsened on 05/31 after going to the grocery store. Denies injury. She had injections at [facility] in April without relief. She saw Dr Harp 06/02 and 06/04, given IM injections-no relief. She is having difficulty walking, using a walker. Pain with WB. Pain in the buttock, hamstring and inner thigh. Pain can be aching and sharp. Difficulty with sit to stand. Pain 1/10 at rest, goes to 10+/10 with WB. 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 Taking TYL, using icy hot. Saw Dr Harp 06/02 and 06/04. XR done at [facility] 06/02/24. Using hot icy hot. Given IM [...] report of the right hip from the [facility] dated May of 2024 slight narrowing of [...] encounter [facility] 03-26-2024 Procedure note [facility] 02-05-2024 Procedure note [facility] 12-15-2022 Note Cardiology Follow Up Progress Note [...] She will be (more content not included)... [facility] 12-15-2022 Note Review of Systems Cardiovascular: Positive for leg swelling. Respiratory: Positive for shortness of breath. Skin: Positive for color change. Neurological: Positive for headaches. All other systems reviewed and are negative. [facility] 07-25-2022 Note PROCEDURE: MRA NECK [...] MARIE Date: 2022-07-25 13:25 [facility] 05-11-2022 Note PROCEDURE: XR FOOT L T MIN 3 VIEWS HISTORY: Pain in left foot ; acute plantar pain COMPARISON: None. FINDINGS: BONES:No fracture, acute abnormality, or significant arthropathy. SOFT TISSUES:No visible soft tissue swelling. EFFUSION:None visible. OTHER: Negative. IMPRESSION: 1. No acute abnormality, significant degenerative changes, or findings to account for patient's symptoms. Electronically authenticated by: DANIEL MARIE Date: 2022-05-11 12:51 [facility] 02-14-2022 Note PROCEDURE: XR KNEE L T 4V or > COMPARISON: None. HISTORY: Osteoarthritis FINDINGS: BONES:No fracture, acute abnormality, or significant arthropathy. SOFT TISSUES:Negative. No visible soft tissue swelling. EFFUSION:Moderate suprapatellar joint effusion OTHER: Negative. IMPRESSION: Moderate joint effusion Electronically authenticated by: GODWIN BECK Date: 2022-02-14 17:30 [facility] Evaluation note No assessment inform ation available [facility] Work Phone: Evaluation note Diagnosis Onset Date Duodenal diverticulum acute Hiatal hernia acute IBS (irritable bowel syndrome) acute Screening for colon cancer a cute [facility] Work Phone: Evaluation note* Diagnosis Chronic right hip pain- Primary Sacral insufficiency fracture, initial encounter ([facility]) Closed fracture of multiple pubic rami, right, initial encounter ([facility]) [facility]* Diagnosis Paresthesia- Primary Disturbance of skin sensation documented in this encounter [facility]* Diagnosis Chronic right hip pain- Primary Sacral insufficiency fracture with routine healing, subsequent encounter Closed fracture of multiple pubic rami, right, initial encounter ([facility]) documented in this encounter [facility] [...] HealthcareHistory and physical note Author Ben Sanchez [facility] February 05, 2024 1:08pm Note Date/Time February 05, 2024 1:08p [facility] ENTER [address] [place] [address] Gastroenterology H&P Signed Patient: Sheila Mac MR#: [id number] : 1950 Acct:[id number] Age/Sex: 73 / F Adm Date: 4 Loc: Room: Type: [facility] Attending Dr: Ben Sanchez MD Copies [...] signed by Ben Sanchez MD> 02/05/24 1308 [facility] Work Phone: History and physical note Author Ben Sanchez [facility] March 26, 2024 10:37am Note Date/Time March 26, 2024 10:3 7am [facility] ENTER [address] [place] [address] Gastroenterology H&P Signed Patient: Sheila Mac MR#: [id number] : 1950 Acct:[id number] Age/Sex: 73 / F Adm Date: 4 Loc: Room: Type: [facility] Attending Dr: Ben Sanchez MD Copies [...] signed by Ben Sanchez MD> 03/26/24 1037 [facility] Work [facility] Narrative* Consultation (Routine) - Closed Specialty Diagnoses / Procedures Referred By Contac t Referred To Contact Neurology Diagnoses Brachial plexopathy Ulnar neuropathy of left upper extremity Procedures WI OFFICE/OUTPATIENT NEW HIGH MDM 60 MINUTES Cleve Sheth DO [address] [facility] [address] [place] [address] Phone: tel: fax: Daniel Patiño MD [address] [place] [address] Phone: tel: fax: Referral ID Status Reason Start Date Expiration Date V isits Requested Visits Authorized [id number] Closed Consult and Treat 2024 10/05/2024 1 [...] and content) DATE CREATED AUTHOR 11/24/2018 [facility] DATE CREATED AUTHOR AUTHOR'S ORGANIZ ATION 12/19/2022 [facility] DATE CREATED AUTHOR AUTHOR'S ORGANIZ ATION 01/18/[address] [facility] pital DATE CREATED AUTHOR AUTHOR'S ORGANIZ ATION 03/29/2024 [facility] y[facility] DATE CREATED AUTHOR AUTHOR'S ORGANIZ ATION 07/18/2024 [facility] DATE CREATED AUTHOR AUTHOR'S ORGANIZ ATION 08/04/2024 [facility] DATE CREATED AUTHOR AUTHOR'S ORGANIZ ATION 08/12/2024 [facility] dical Specialists EPIC Care Teams (unrecognized sec [...] Provide r Active Start: March 26, 2024 Customer Experience Manager Relationship Specialty Start Date End Date Krzysztof Harp MD [address] [place] [address] PCP - General Family Medicine 01/09/24 Customer Experience Manager Relationship Specialty Start Date End Date Krzysztof Harp MD [address] [place] [facility] [place] [address] PCP - General Family Medicine 01/09/24 Customer Experience Manager Relationship Specialty Start Date End Date Krzysztof Harp MD [address] [place] [facility] [place] [address] PCP - General Family Medicine 01/09/24 Customer Experience Manager Relationship Specialty Start Date End Date Krzysztof Harp MD [address] [place] [facility] [place] [address] PCP - General Family Medicine 01/09/24 Customer Experience Manager Relationship Specialty Start Date End Date Krzysztof Harp MD [address] [place] [address] PCP - General Family Medicine 01/09/24 Raven Sesay DO [address] [address] Referring Physician Neurology 07/14/24 Customer Experience Manager Relationship Specialty Start Date End Date Krzysztof Harp MD [address] [place] [address] PCP - General Family Medicine 01/09/24 Raven Sesay DO [address] [address] Referring Physician Neurology 07/14/24 Customer Experience Manager Relationship Specialty Start Date End Date Krzysztof Harp MD [address] [place] [address] PCP - General Family Medicine 01/09/24 Raven Sesay DO [address] [address] Referring Physician Neurology 07/14/24 Customer Experience Manager Relationship Specialty Start Date End Date Krzysztof Harp MD [address] [place] [address] PCP - General Family Medicine 01/09/24 Raven Sesay DO [address] [address] Referring Physician Neurology 07/14/24 Customer Experience Manager Relationship Specialty Start Date End Date Krzysztof Harp MD [address] [facility] [place] [address] PCP - General Family Medicine 01/09/24 Raven Sesay DO [address] [place] [address] Referring Physician Neurology 07/14/24 Reason for Visit [...] BE BASED ON THE PRIMARY CLINICAL RECORDS. [employer] provides no warranty or guarantee of the accuracy or completeness of information in this document.
[2024-10-16 18:26] LABS: Magnesium 1.5 mg/dL (1.8-2.4); Troponin I High Sensitivity 12.5 pg/mL (4.0-51.3)
[2024-10-16] MEDS: LACTATED RINGER'S SOLUTION 1,000 ML 100 ML IV (18:39)
[2024-10-16] MEDS: DEXAMETHASONE SOD PHOS 4 MG/ML VIAL 10 MG IV (18:39)
[2024-10-16] MEDS: IPRATROPIUM/ALBUTEROL SULFATE 3 ML AMPUL.NEB IH (20:05)
[2024-10-16] MEDS: SUCRALFATE 1 GM TABLET PO (21:04)
[2024-10-16] MEDS: ENSURE HP 237 ML LIQUID PO (21:04)
[2024-10-16] MEDS: GABAPENTIN 100 MG CAPSULE PO (21:04)
[2024-10-16] MEDS: METOPROLOL TARTRATE 25 MG TABLET PO (21:04)
[2024-10-16] MEDS: PANTOPRAZOLE SODIUM 40 MG VIAL IV (21:05)
[2024-10-16] MEDS: OSELTAMIVIR PHOSPHATE 30 MG CAPSULE PO (21:05)
[2024-10-17] VITALS (17 sets, daily range): BP systolic 114–156; BP diastolic 75–91; PULSE 63–89; TEMP 36.2–36.3; O2SAT 86–97; BMI 21.2
[2024-10-17] MEDS: IPRATROPIUM/ALBUTEROL SULFATE 3 ML AMPUL.NEB IH ×3 (04:03→21:29)
[2024-10-17] MEDS: LACTATED RINGER'S SOLUTION 1,000 ML 100 ML IV ×2 (04:56→14:25)
[2024-10-17 04:59] LABS: Bilirubin Urine NEGATIVE (NEGATIVE); Blood Urine TRACE-I (NEGATIVE); Clarity Urine SL CLOUDY (CLEAR); Color Urine LT. YELLOW (YELLOW); Glucose Urine UA NEGATIVE (NEGATIVE); Ketones Urine TRACE mg/dL (NEGATIVE); Leukocyte Esterase Urine MODERATE (NEGATIVE); Nitrite Urine NEGATIVE (NEGATIVE); Protein Urine 30 mg/dL (NEG/TRACE); Specific Gravity Urine 1.025 (1.005-1.025); Urobilinogen Urine 0.2 EU/dL (0.2-1.0)
[2024-10-17 05:07] LABS: Bacteria Urine MODERATE #/HPF (NONE SEEN); Mucus Urine NONE SEEN (NONE SEEN); RBC Urine 0-2 #/HPF (0-2); Squamous Epithelial Cell Urine MODERATE #/LPF (NONE/RARE); WBC Urine 20-50 #/HPF (NONE SEEN)
[2024-10-17 05:08] LABS: Cast Seen? SEEN #/LPF (NONE SEEN); Crystals Seen? None Seen #/HPF (None Seen); Fine Granular Casts Urine RARE; Hyaline Casts Urine FEW; Urine Culture Indicated YES
[2024-10-17 06:05] LABS: Basophils Percent Auto 0.2 % (0.2-2.0); Eosinophils Percent Auto 0.2 % (0.9-7.0); Hematocrit 35.6 % (36.0-48.0); Hemoglobin 11.1 g/dL (12.0-16.0); Immature Granulocytes Abs Auto 0.04 10^3/uL (0.00-0.03); Immature Granulocytes Pct Auto 0.8 % (0.0-0.5); Lymphocytes Absolute Auto 1.1 10^3/uL (1.2-3.8); Lymphocytes Percent Auto 20.8 % (20.5-60.0); Mean Corpuscular HGB Conc 31.2 g/dL (29.9-35.2); Mean Corpuscular Volume 96.2 fL (81.0-99.0); Mean Platelet Volume 9.5 fL (9.5-13.5); Monocytes Absolute Auto 0.1 10^3/uL (0.3-0.8); Monocytes Percent Auto 2.2 % (1.7-12.0); Neutrophils Absolute Auto 3.8 10^3/uL (1.4-6.5); Neutrophils Percent Auto 75.8 % (43.0-75.0); Platelet Count 217 10^3/uL (150-450); Red Cell Distribution Width 13.3 % (11.0-15.0); White Blood Count 5.1 10^3/uL (4.0-11.0)
[2024-10-17 06:24] LABS: Alanine Aminotransferase 12 U/L (14-59); Albumin Globulin Ratio 0.5; Albumin Level 2.3 g/dL (3.4-5.0); Alkaline Phosphatase 105 U/L (46-116); Anion Gap 18.2; Aspartate Amino Transferase 23 U/L (15-37); BUN Creatinine Ratio 16.5; Bilirubin Total 0.2 mg/dL (0.2-1.0); Calcium 8.3 mg/dL (8.5-10.1); Carbon Dioxide 21.2 mmol/L (21.0-32.0); Chloride 106 mmol/L (98-107); Estimated GFR (African America 21 (>=60 mL/min/1.73m^2); Estimated GFR (Non-African Ame 17 (>=60 mL/min/1.73m^2); Globulin 4.6 g/dL; Glucose 146 mg/dL (74-106); Potassium 4.4 mmol/L (3.5-5.1); Sodium 141 mmol/L (136-145); Total Protein 6.9 g/dL (6.4-8.2)
--- NOTE | 2024-10-17 07:52 | P.PN_ITS ---
Progress Note: Subjective Subjective Interval history: Patient does look better today. At least not throwing up. Still some significant cough throughout the evaluation and mild conversational dyspnea Exam Constitutional Vital Signs, click to edit/add: Last Vital Signs Temp 97.4 F L 10/17/24 04:00 Pulse 77 10/17/24 06:07 Resp 18 10/17/24 04:04 BP 119/75 10/17/24 04:00 Pulse Ox 91 L 10/17/24 04:04 O2 Del Method Nasal Cannula 10/17/24 04:04 O2 Flow Rate 4 10/17/24 04:04 Documenting provider has reviewed patient's vital signs: yes Common normals: apparent distress (Mild conversational dyspnea) Chest Common normals: inspection of chest normal Respiratory Common normals: abnormal respiratory effort (Mild conversational dyspnea) Auscultation: rhonchi; no egophony Cardio Common normals: regular rate and regular rhythm Progress Note: Objective Labs Labs: Short CBC 10/16/24 10/17/24 Range/Units 16:18 05:30 WBC 9.8 5.1 (4.0-11.0) 10^3/uL Hgb 12.9 11.1 L (12.0-16.0) g/dL Hct 40.4 35.6 L (36.0-48.0) % Plt Count 262 217 (150-450) 10^3/uL BMP 10/16/24 10/17/24 16:18 05:30 Sodium 138 141 Potassium 4.8 4.4 Chloride 102 106 Carbon Dioxide 19.2 L 21.2 BUN 34.0 H 44.0 H Creatinine 2.73 H 2.67 H Glucose 125 H 146 H Calcium 9.3 8.3 L Liver Function 10/16/24 10/17/24 Range/Units 16:18 05:30 Total Bilirubin 0.5 0.2 (0.2-1.0) mg/dL AST 31 23 (15-37) U/L ALT 18 12 L (14-59) U/L Alkaline Phosphatase 126 H 105 (46-116) U/L Albumin 2.9 L 2.3 L (3.4-5.0) g/dL Urine 10/17/24 Range/Units 04:50 Urine Color Lt. yellow (YELLOW) Urine Clarity Sl cloudy (CLEAR) Urine pH 6.0 (5.0-9.0) Ur Specific Julian 1.025 (1.005-1.025) Urine Protein 30 A (NEG/TRACE) mg/dL Urine Glucose (UA) Negative (NEGATIVE) mg/dL Progress Note: A&P Assessment and Plan (1) Sepsis: (2) Pneumonia: (3) Influenza: (4) Metatarsalgia: Plan Admission findings: Patient with tachycardia, respiratory distress, lactic acid osis, right upper lobe pneumonia and positive influenza A. This is led to patient to have sepsis. Blood cultures, urine culture, sputum culture pending, unable to give aggressive fluid resuscitation secondary to a history of acute combined congestive heart failure Acute hypoxia with right upper lobe pneumonia-IV antibiotics, aerosol treatments, 1 dose of steroids.-Will continue with current care, repeat chest x- ray, patient now with significant hypoxia on 4 L. Expected with patient with rehydration and progression of pneumonia likely in the initial 24 hours Influenza A-1 dose of steroid as outlined above, plus Tamiflu-maintain current treatment plan Dehydration-IV fluids, need to be gentle due to history of acute combined congestive heart failure, BNP pending Acute kidney injury stage I-patient baseline creatinine on her routine workup is 1.6, creatinine admission is 2.73, decreased urine output over the last 6 hours, this 170% above her baseline, this would put her at stage I-continue with gentle hydration Coronary artery disease-check high-sensitivity troponin and BNP Hypertension-continue with home medications GERD-IV Protonix, maintain Carafate Iron deficiency anemia-Down somewhat today, not unexpected for IV hydration yesterday Generalized arthralgias-tramadol for pain control Moderate protein calorie malnutrition-diet supplement Acute UTI-culture pending Admission status: Patient admitted to inpatient status with right upper lobe pneumonia, sepsis, influenza A positive, medically necessary treatment will span 2 midnights. Inpatient status. ?
--- NOTE | 2024-10-17 08:10 | XR_ITS ---
The [address] [address] Patient Name: EDNI SAMANIEGO MRN: [id number] date: 1950 Sex: F Assigned Patient Location: [place] Current Patient Location: [place] Accession/Order Number: [id number] Exam Date: 10/17/2024 08:00 Report Date: 10/17/2024 08:48 At the request of: KRZYSZTOF THOMPSON Procedure: XR chest 1V EXAM: XR chest 1V HISTORY: follow up pneumonia, now hypoxic COMPARISON: 10/16/2024 TECHNIQUE: AP portable FINDINGS: LUNGS: Slight improvement in minimal right upper lobe infiltrate. Mild left basilar infiltrate VASCULATURE: No increased pulmonary vasculature. PLEURA: No pneumothorax, effusion, or pleural thickening. CARDIAC: No cardiomegaly or cardiac silhouette abnormality. MEDIASTINUM: No visible mass or adenopathy. BONES: No fracture or visible bone lesion. OTHER: Negative. XR/XR chest 1V IMPRESSION: Slight improvement in right upper lobe infiltrate. New left basilar infiltrate Electronically authenticated by: GODWIN BECK Date: 10/17/2024 08:48
[2024-10-17] MEDS: METOPROLOL TARTRATE 25 MG TABLET PO ×2 (08:22→22:56)
[2024-10-17] MEDS: CLOPIDOGREL BISULFATE 75 MG TABLET PO (08:22)
[2024-10-17] MEDS: ASPIRIN 81 MG TABLET.DR PO (08:22)
[2024-10-17] MEDS: CETIRIZINE HCL 10 MG TABLET PO (08:22)
[2024-10-17] MEDS: SUCRALFATE 1 GM TABLET PO ×3 (08:22→22:56)
[2024-10-17] MEDS: GABAPENTIN 100 MG CAPSULE PO ×2 (08:22→22:56)
--- NOTE | 2024-10-17 10:58 | SWNOTE1 ---
ANA met with pt, pt's son, and pt's in room. Pt voiced she has not been feeling well and that she has not been able to eat anything in past few days. Pt went to the doctor's office and was sent here. Pt voiced usually she does get around alright at home, has a walker if needed. Pt does not wear home oxygen. SW spoke with pt and family about HH services. Pt is not sure she wants it. She stated her is having hip surgery in 2 weeks. She stated Bella from [facility] is coming to see him. SW offered to try to get [facility] set up for her to come in home. Pt is not sure at this time. SW to stop back in later today. SW did advise pt and family if they do decide after being home that they want something set up for in the home, pt's PCP can get it set. They voiced understanding.
--- NOTE | 2024-10-17 11:49 | CM.NOTE ---
Important Message From Medicare discussed with pt, pt verbalizes understanding and signs paper. Original given to pt and copy placed on pt's chart.
[2024-10-17] MEDS: PHENAZOPYRIDINE 100 MG TABLET 200 MG PO ×2 (14:27→22:56)
--- NOTE | 2024-10-17 15:43 | SWNOTE1 ---
SW followed up with pt and at this time she will wait until she is home and determine if she wants [facility] or someone to come in to do therapy.
[2024-10-17] MEDS: AZITHROMYCIN 500 MG in 0.9 % SODIUM CHLORIDE 250 ML 125 MG IV (17:24)
[2024-10-17] MEDS: PANTOPRAZOLE SODIUM 40 MG VIAL IV (22:56)
[2024-10-17] MEDS: CEFTRIAXONE 1,000 MG in 0.9 % SODIUM CHLORIDE 50 ML 100 MG IV (22:59)
[2024-10-17] MEDS: ENSURE HP 237 ML LIQUID PO (22:59)
[2024-10-18] VITALS (8 sets, daily range): BP systolic 117–149; BP diastolic 72–91; PULSE 72–97; TEMP 35.8–36.4; O2SAT 90–97
[2024-10-18] MEDS: LACTATED RINGER'S SOLUTION 1,000 ML 100 ML IV ×2 (01:46→12:19)
[2024-10-18] MEDS: IPRATROPIUM/ALBUTEROL SULFATE 3 ML AMPUL.NEB IH ×4 (04:05→20:59)
[2024-10-18] MEDS: PHENAZOPYRIDINE 100 MG TABLET 200 MG PO ×2 (05:39→22:43)
[2024-10-18 06:25] LABS: Hematocrit 31.7 % (36.0-48.0); Immature Granulocytes Abs Auto 0.05 10^3/uL (0.00-0.03); Immature Granulocytes Pct Auto 0.7 % (0.0-0.5); Lymphocytes Absolute Auto 1.1 10^3/uL (1.2-3.8); Mean Corpuscular HGB Conc 31.5 g/dL (29.9-35.2); Mean Corpuscular Hemoglobin 29.9 pg (26.7-34.0); Mean Corpuscular Volume 94.6 fL (81.0-99.0); Mean Platelet Volume 9.9 fL (9.5-13.5); Monocytes Absolute Auto 0.7 10^3/uL (0.3-0.8); Monocytes Percent Auto 8.8 % (1.7-12.0); Neutrophils Absolute Auto 5.6 10^3/uL (1.4-6.5); Neutrophils Percent Auto 75.5 % (43.0-75.0); Platelet Count 214 10^3/uL (150-450); Red Blood Count 3.35 10^6/uL (4.20-5.40); Red Cell Distribution Width 13.5 % (11.0-15.0); White Blood Count 7.5 10^3/uL (4.0-11.0)
[2024-10-18 06:43] LABS: BUN Creatinine Ratio 19.3; Bilirubin Total 0.2 mg/dL (0.2-1.0); Calcium 7.8 mg/dL (8.5-10.1); Chloride 109 mmol/L (98-107); Estimated GFR (African America 20 (>=60 mL/min/1.73m^2); Estimated GFR (Non-African Ame 16 (>=60 mL/min/1.73m^2); Glucose 107 mg/dL (74-106); Sodium 144 mmol/L (136-145)
[2024-10-18 06:44] LABS: Alanine Aminotransferase 15 U/L (14-59); Albumin Globulin Ratio 0.6; Albumin Level 2.3 g/dL (3.4-5.0); Alkaline Phosphatase 96 U/L (46-116); Aspartate Amino Transferase 24 U/L (15-37); Globulin 3.9 g/dL; Total Protein 6.2 g/dL (6.4-8.2)
[2024-10-18] MEDS: ENSURE HP 237 ML LIQUID PO ×2 (08:02→22:38)
[2024-10-18] MEDS: METOPROLOL TARTRATE 25 MG TABLET PO ×2 (08:02→22:40)
[2024-10-18] MEDS: SUCRALFATE 1 GM TABLET PO ×4 (08:02→22:38)
[2024-10-18] MEDS: ASPIRIN 81 MG TABLET.DR PO (08:02)
[2024-10-18] MEDS: GABAPENTIN 100 MG CAPSULE PO ×2 (08:02→22:38)
[2024-10-18] MEDS: CLOPIDOGREL BISULFATE 75 MG TABLET PO (08:02)
[2024-10-18] MEDS: CETIRIZINE HCL 10 MG TABLET PO (08:02)
[2024-10-18] MEDS: 0.9 % SODIUM CHLORIDE 1,000 ML 500 ML IV (08:02)
[2024-10-18 08:53] LABS: C. Difficile PCR NEGATIVE
--- NOTE | 2024-10-18 09:45 | PT.DAILY ---
Physical Therapy Daily Note PT Daily Note/Assess Start: 10/17/24 10:34 Freq: Status: Active Protocol: Document 10/18/24 09:42 MT (Rec: 10/18/24 09:45 MT [id number]) Physical Therapy Daily Note/Assessment Time In/Time Out Time In 08:50 Time Out 09:05 Pain In Pain N/A Pain Out Pain N/A Subjective Subjective Pt supine upon arrival. Agrees to PT. Family is present . Therapeutic Exercise Time Therapeutic Exercise 3 Minutes (minutes) Therapeutic Exercise 0 Units Therapeutic Exercise Treatment Therapeutic Exercise Seated bilat LE strengthening ex complete while sitting Treatment EOB unsupported without LOB - 10x ea Therapeutic Activity Time Therapeutic Activity 8 Minutes (minutes) Therapeutic Activity 1 Units Therapeutic Activity Treatment Bed Mobility Ability Modified Independent Chair Transfer Modified Independent Ability Therapeutic Activity Supine>sit Rex due to IV lines. Sits EOB 3 min Comments unsupported without LOB. Sit>stand Rex to RW assist for IV lines. Pt amb 250' with RW, Rex with only assist being for IV pole. Returned to room to BS chair with call light within reach and needs met. Total Physical Therapy Time Total Therapy 11 Minutes Total Physical 1 Therapy Units Summary Daily Note Summary Significantly improved gait and transfer ability. Plan to DC from PT - can walk halls with family with mask on .
--- NOTE | 2024-10-18 10:50 | P.PN_ITS ---
Progress Note: Subjective Subjective Interval history: Looks better this am still with supplemental O2 over night - didn't eat much better Exam Constitutional Vital Signs, click to edit/add: Last Vital Signs Temp 97.6 F 10/18/24 08:00 Pulse 74 10/18/24 10:35 Resp 20 10/18/24 08:00 BP 137/82 10/18/24 08:00 Pulse Ox 97 10/18/24 10:35 O2 Del Method Room Air 10/18/24 10:35 O2 Flow Rate 1 10/18/24 04:05 Documenting provider has reviewed patient's vital signs: yes Common normals: apparent distress (Minimal respiratory distress but persisting cough) Chest Common normals: inspection of chest normal Respiratory Common normals: abnormal respiratory effort (Minimal respiratory distress but persisting cough) Auscultation: rhonchi; no egophony Cardio Common normals: regular rate and regular rhythm Progress Note: Objective Labs Labs: Short CBC 10/18/24 Range/Units 06:12 WBC 7.5 (4.0-11.0) 10^3/uL Hgb 10.0 L (12.0-16.0) g/dL Hct 31.7 L (36.0-48.0) % Plt Count 214 (150-450) 10^3/uL BMP 10/18/24 06:12 Sodium 144 Potassium 4.0 Chloride 109 H Carbon Dioxide 21.0 BUN 54.0 H Creatinine 2.80 H Glucose 107 H Calcium 7.8 L Liver Function 10/18/24 Range/Units 06:12 Total Bilirubin 0.2 (0.2-1.0) mg/dL AST 24 (15-37) U/L ALT 15 (14-59) U/L Alkaline Phosphatase 96 (46-116) U/L Albumin 2.3 L (3.4-5.0) g/dL Progress Note: A&P Assessment and Plan (1) Sepsis: (2) Pneumonia: (3) Influenza: (4) Metatarsalgia: Plan Admission findings: Patient with tachycardia, respiratory distress, lactic acidosis, right upper lobe pneumonia and positive influenza A. This is led to patient to have sepsis. Blood cultures, urine culture, sputum culture pending, unable to give aggressive fluid resuscitation secondary to a history of acute combined congestive heart failure L Acute hypoxia with right upper lobe pneumonia-IV antibiotics, aerosol treatments, 1 dose of steroids. Still requiring supplemental oxygen, try to wean that off over the course of the day today, if she can go overnight without needing supplemental oxygen she can be discharged to home tomorrow Influenza A-1 dose of steroid as outlined above, plus Tamiflu-maintain current treatment plan Dehydration-IV fluids, need to be gentle due to history of acute combined congestive heart failure, BNP pending-kidney tests are still elevated so we will small fluid bolus today Acute kidney injury stage I-patient baseline creatinine on her routine workup is 1.6, creatinine admission is 2.73, decreased urine output over the last 6 hours, this 170% above her baseline, this would put her at stage I-continue as outlined above, Coronary artery disease-check high-sensitivity troponin and BNP Hypertension-continue with home medications GERD-IV Protonix, maintain Carafate Iron deficiency anemia-Down somewhat today, not unexpected for IV hydration yesterday Generalized arthralgias-tramadol for pain control Moderate protein calorie malnutrition-diet supplement Acute UTI-culture pending Admission status: Patient admitted to inpatient status with right upper lobe pneumonia, sepsis, influenza A positive, medically necessary treatment will span 2 midnights. Inpatient status. ? ?
[2024-10-18] MEDS: AZITHROMYCIN 500 MG in 0.9 % SODIUM CHLORIDE 250 ML 250 MG IV (16:54)
[2024-10-18] MEDS: OSELTAMIVIR PHOSPHATE 30 MG CAPSULE PO (22:38)
[2024-10-18] MEDS: PANTOPRAZOLE SODIUM 40 MG VIAL IV (22:39)
[2024-10-18] MEDS: CEFTRIAXONE 1,000 MG in 0.9 % SODIUM CHLORIDE 50 ML 100 MG IV (22:43)
[2024-10-19 00:22] VITALS: BP 146/83; PULSE 87; TEMP 36.3; O2SAT 91
[2024-10-19 04:00] VITALS: BP 151/80; PULSE 95; TEMP 36.7; O2SAT 91
[2024-10-19 04:55] VITALS: PULSE 84; O2SAT 91
[2024-10-19] MEDS: PHENAZOPYRIDINE 100 MG TABLET 200 MG PO (05:58)
[2024-10-19 06:00] VITALS: BP 174/102
[2024-10-19 06:23] VITALS: PULSE 86; TEMP 36.3; O2SAT 92
[2024-10-19 06:28] LABS: Basophils Percent Auto 0.1 % (0.2-2.0); Eosinophils Percent Auto 0.3 % (0.9-7.0); Immature Granulocytes Abs Auto 0.05 10^3/uL (0.00-0.03); Immature Granulocytes Pct Auto 0.7 % (0.0-0.5); Lymphocytes Absolute Auto 2.2 10^3/uL (1.2-3.8); Lymphocytes Percent Auto 33.1 % (20.5-60.0); Mean Corpuscular HGB Conc 31.3 g/dL (29.9-35.2); Mean Corpuscular Hemoglobin 29.9 pg (26.7-34.0); Mean Corpuscular Volume 95.5 fL (81.0-99.0); Mean Platelet Volume 9.8 fL (9.5-13.5); Monocytes Absolute Auto 0.6 10^3/uL (0.3-0.8); Monocytes Percent Auto 9.1 % (1.7-12.0); Neutrophils Absolute Auto 3.8 10^3/uL (1.4-6.5); Neutrophils Percent Auto 56.7 % (43.0-75.0); Platelet Count 223 10^3/uL (150-450); Red Blood Count 3.35 10^6/uL (4.20-5.40); Red Cell Distribution Width 13.7 % (11.0-15.0); White Blood Count 6.7 10^3/uL (4.0-11.0)
[2024-10-19 06:48] LABS: Alanine Aminotransferase 13 U/L (14-59); Albumin Globulin Ratio 0.6; Albumin Level 2.2 g/dL (3.4-5.0); Alkaline Phosphatase 92 U/L (46-116); Anion Gap 15.2; Aspartate Amino Transferase 24 U/L (15-37); BUN Creatinine Ratio 17.5; Bilirubin Total 0.2 mg/dL (0.2-1.0); Calcium 7.9 mg/dL (8.5-10.1); Carbon Dioxide 22.2 mmol/L (21.0-32.0); Chloride 113 mmol/L (98-107); Estimated GFR (African America 25 (>=60 mL/min/1.73m^2); Estimated GFR (Non-African Ame 21 (>=60 mL/min/1.73m^2); Globulin 3.8 g/dL; Glucose 68 mg/dL (74-106); Potassium 4.4 mmol/L (3.5-5.1); Sodium 146 mmol/L (136-145)
[2024-10-19 08:00] VITALS: BP 144/88; PULSE 88; TEMP 36.6; O2SAT 93
[2024-10-19 08:09] LABS: Magnesium 1.3 mg/dL (1.8-2.4)
[2024-10-19] MEDS: BENZONATATE 100 MG CAPSULE 200 MG PO (08:20)
[2024-10-19] MEDS: ASPIRIN 81 MG TABLET.DR PO (08:21)
[2024-10-19] MEDS: CLOPIDOGREL BISULFATE 75 MG TABLET PO (08:21)
[2024-10-19] MEDS: METOPROLOL TARTRATE 50 MG TABLET PO (08:21)
[2024-10-19] MEDS: CETIRIZINE HCL 10 MG TABLET PO (08:21)
[2024-10-19] MEDS: ENSURE HP 237 ML LIQUID PO (08:21)
[2024-10-19] MEDS: GABAPENTIN 100 MG CAPSULE PO (08:21)
[2024-10-19] MEDS: SUCRALFATE 1 GM TABLET PO (08:21)
--- NOTE | 2024-10-19 09:21 | P.DS_ITS ---
DS: Providers Provider Date of admission: 10/16/24 18:10 Primary care physician: Alvaro Harp MD Consults: 10/16/24 Consult to Dietitian Routine Reason for consultation: Weight loss 10/16/24 17:48 Consult to Pharmacy Routine Consulting Provider: Reason for consultation: Please [place] me when Med Rec is Updated Has provider been notified: No Occupational Therapy Eval and Treat Routine Reason for consultation: Only if needed for Rehab Has provider been notified: No Physical Therapy Eval and Treat Routine Reason for consultation: Eval and Treat Has provider been notified: No DS: Diagnosis Discharge Diagnosis (1) Sepsis: (2) Pneumonia: (3) Influenza: (4) Metatarsalgia: Plan Admission findings: Patient with tachycardia, respiratory distress, lactic acidosis, right upper lobe pneumonia and positive influenza A. This is led to patient to have sepsis. Blood cultures, urine culture, sputum culture pending, unable to give aggressive fluid resuscitation secondary to a history of acute combined congestive heart failure Acute hypoxia with right upper lobe pneumonia-IV antibiotics, aerosol treatments, 1 dose of steroids. Improving at the time of discharge Influenza A-1 dose of steroid as outlined above, plus Tamiflu-maintain current treatment plan Dehydration-creatinine still elevated, will continue to monitor as an outpatient, good p.o. intake Acute kidney injury stage I-patient baseline creatinine on her routine workup is 1.6, creatinine admission is 2.73, decreased urine output over the last 6 hours, this 170% above her baseline,-still elevated on the day of discharge we will monitor as an outpatient Coronary artery disease-check high-sensitivity troponin and BNP Hypertension-continue with home medications GERD-IV Protonix, maintain Carafate Iron deficiency anemia-Down somewhat today, not unexpected for IV hydration yesterday Generalized arthralgias-tramadol for pain control Moderate protein calorie malnutrition-diet supplement Acute UTI-culture pending Admission status: Patient admitted to inpatient status with right upper lobe pneumonia, sepsis, influenza A positive, medically necessary treatment will span 2 midnights. Inpatient status. ? DS: Summary Hospital Course Hospital Course: Patient was seen and evaluated in the office, look severely ill at the time with recurrent emesis and and shortness of breath. Tested positive for influenza A in the office, referred patient to ER, right upper lobe pneumonia and acute UTI and significant dehydration with acute kidney injury. Patient was given fluids, started on IV antibiotics and Tamiflu. She was hypoxic in the ER, she has been able to be weaned off of that over the last 18 hours. If no hypoxia with ambulation today for the right upper lobe pneumonia appears to be clearing with no longer having egophony, will discharge patient to home and have her see me in the office tomorrow, her is coming in that as well. Medications see jet myers. Time Spent with Patient Time attestation: Total time spent providing and/or coordinating discharge services: Exam Constitutional Vital Signs, click to edit/add: Last Vital Signs Temp 97.9 F 10/19/24 08:00 Pulse 88 10/19/24 08:00 Resp 18 10/19/24 08:00 BP 144/88 H 10/19/24 08:00 Pulse Ox 93 L 10/19/24 08:00 O2 Del Method Room Air 10/19/24 08:00 O2 Flow Rate 1 10/18/24 04:05 Documenting provider has reviewed patient's vital signs: yes Common normals: apparent distress (Minimal respiratory distress but persisting cough) Chest Common normals: inspection of chest normal Respiratory Common normals: normal respiratory effort Auscultation: rhonchi (Much improved); no egophony Cardio Common normals: regular rate and regular rhythm Extremity Common normals: abnormal to inspection (1+ edema this morning, no compression hose patient refused) DS: Data Data Completed and Pending Labs on day of discharge: Labs from last 24 hours 10/19/24 06:15 WBC 6.7 RBC 3.35 L Hgb 10.0 L Hct 32.0 L MCV 95.5 MCH 29.9 MCHC 31.3 RDW 13.7 Plt Count 223 MPV 9.8 Neut % (Auto) 56.7 Lymph % (Auto) 33.1 [place] % (Auto) 9.1 Eos % (Auto) 0.3 L Baso % (Auto) 0.1 L Neut # (Auto) 3.8 Lymph # (Auto) 2.2 [place] # (Auto) 0.6 Eos # (Auto) 0.0 Baso # (Auto) 0.0 Abs Immat Gran (auto) 0.05 H Imm/Tot Granulo (auto) 0.7 H Sodium 146 H Potassium 4.4 Chloride 113 H Carbon Dioxide 22.2 Anion Gap 15.2 BUN 40.0 H Creatinine 2.29 H Est GFR ( Amer) 25 L Est GFR (Non-Af Amer) 21 L BUN/Creatinine Ratio 17.5 Glucose 68 L Calcium 7.9 L Magnesium 1.3 L Total Bilirubin 0.2 AST 24 ALT 13 L Alkaline Phosphatase 92 NT-Pro-B Natriuret Pep 3299.0 H* Total Protein 6.0 L Albumin 2.2 L Globulin 3.8 Albumin/Globulin Ratio 0.6 Discharge Plan Discharge Disposition: Home, Self-Care Condition: Fair Discharge Medications: New metoprolol tartrate 50 mg Tablet 50 mg PO BID Qty: 60 11RF oseltamivir 30 mg Capsule 30 mg PO DAILY@2100 Qty: 4 0RF cefdinir 300 mg capsule 600 mg PO DAILY Qty: 20 0RF Continued aspirin 81 mg tablet,delayed release (DR/EC) 81 mg PO DAILY atorvastatin 20 mg tablet 20 mg PO DAILY cetirizine 10 mg capsule 10 mg PO DAILY clopidogrel [Plavix] 75 mg tablet 75 mg PO DAILY pantoprazole [Protonix] 40 mg tablet,delayed release (DR/EC) 40 mg PO QPM ondansetron 4 mg tablet,disintegrating 4 mg PO DAILY PRN (Reason: nausea and vomiting) benzonatate 200 mg capsule 200 mg PO TID PRN (Reason: cough) gabapentin 100 mg capsule 100 mg PO BID phenazopyridine 200 mg tablet 200 mg PO Q8H Discontinued metoprolol tartrate 25 mg tablet 25 mg PO BID oseltamivir 75 mg capsule 75 mg PO DAILY Print Language: Uzbek Forms: Portal Instructions
--- NOTE | 2024-10-20 11:50 | CM.DCFOLLOWU ---
10/20- 1st attempt. No answer
--- NOTE | 2024-10-21 14:17 | CM.DCFOLLOWU ---
Person spoke with:patient How are you feeling?well, just tired How is your pain?none Did you understand your discharge instructions?yes Do you have any questions about your discharge instructions?no Were you given any prescriptions at discharge?yes Were you able to get your prescriptions filled?yes Do you understand how to take your medications as ordered?yes Do you have any questions about your follow up appointment and do you plan to keep your follow up appointment? no questions, she had follow up yesterday with PCP Is there anything else that you would like to discuss? no Questions/Comments/Concerns/Other: none
== END 2024-10-19 11:52 | disposition home or self-care (01) | DRG 871 ==
LOC: ER 17:35 → MS 18:18
PROVIDERS: Internal Medicine; Admitting Provider Family Medicine; Emergency Provider Emergency Medicine; PCP Family Medicine; Visit Provider Family Medicine
DX: A41.9 Sepsis, unspecified organism (principal); E43 Unspecified severe protein-calorie malnutrition; J10.00 Influenza due to other identified influenza virus with unspecified type of pneumonia; I50.42 Chronic combined systolic (congestive) and diastolic (congestive) heart failure; N17.9 Acute kidney failure, unspecified; N39.0 Urinary tract infection, site not specified; M77.40 Metatarsalgia, unspecified foot; R06.03 Acute respiratory distress; E86.0 Dehydration; I25.10 Atherosclerotic heart disease of native coronary artery without angina pectoris; I11.0 Hypertensive heart disease with heart failure; K21.9 Gastro-esophageal reflux disease without esophagitis; M25.50 Pain in unspecified joint; Z79.82 Long term (current) use of aspirin; Z79.899 Other long term (current) drug therapy; Z87.442 Personal history of urinary calculi; Z90.710 Acquired absence of both cervix and uterus; Z98.1 Arthrodesis status; Z98.51 Tubal ligation status; Z86.73 Personal history of transient ischemic attack (TIA), and cerebral infarction without residual deficits; R09.02 Hypoxemia; D50.9 Iron deficiency anemia, unspecified; Z68.21 Body mass index [BMI] 21.0-21.9, adult
CPT/HCPCS: 36415; 71045; 80053; 81001; 83605; 83735; 83880; 84484; 85025; 87040; 87070; 87086; 87493; 94640; 94667; 94668; 94761; 96365; 96366; 96368; 96375; 97161; 97165; 97530; 99285; J0456; J0696; J1100; J2405

== ENCOUNTER 2024-12-11 08:41 | Outpatient (OUT) | payer MEDICARE, SELFPAY ==
--- NOTE | 2024-12-11 08:48 | MR_ITS ---
The [address] [address] Patient Name: EDIN SAMANIEGO MRN: [facility]:[id number] date: 1950 Sex: F Assigned Patient Location: MRI Current Patient Location: MRI Accession/Order Number: [id number] Exam Date: 12/11/2024 11:40 Report Date: 12/11/2024 11:57 At the request of: KRZYSZTOF THOMPSON MD Procedure: MR lumbar spine wo con MRI LUMBAR SPINE WITHOUT CONTRAST COMPARISON: Plain films 10/01/2024 CLINICAL DATA: Chronic low back pain with tingling and numbness at the lower extremities. No injury. Multiecho imaging in the axial and sagittal plane was performed without contrast. There is levoscoliotic curvature. Alignment is maintained on the sagittal sequences. There are no acute compression fractures or marrow edema. There are degenerative endplate signal changes, greatest at L2-3 toward the right and L4-5 toward the left. The conus medullaris is within normal limits for caliber, position and signal intensity. No paraspinal soft tissue abnormalities are noted. At T12-L1, there is mild annular disc bulging, asymmetric in the right parasagittal region. There is mild thecal sac effacement on the right. No significant foraminal encroachment is seen. At L1-2, there is narrowing of the disc space. There is annular disc bulging, which is also asymmetric in the right parasagittal region. Mild facet and ligamentous hypertrophy are seen. Mild thecal sac effacement is present, greater on the right. Moderate right and mild to moderate left foraminal encroachment is present. At L2-3, there is narrowing of the disc space. Annular disc bulging is visualized, asymmetric extending laterally on the right. There is also bilateral facet and ligamentous hypertrophy. Moderate central stenosis is visualized. There is moderate to severe right and mild left foraminal encroachment. At L3-4, the disc is within normal limits for height. There is minimal annular disc bulging. Mild facet and ligamentous hypertrophy are noted with mild to moderate posterior effacement of the thecal sac. There is minor right and moderate to severe left foraminal encroachment. At L4-5, there is narrowing of the disc space. Minor disco-osteophytic bulging is present, asymmetric extending laterally on the left. Bilateral facet hypertrophy is present. There is no prominent thecal sac effacement. Mild right and moderate to severe left foraminal encroachment is identified. At the lumbosacral junction, there is narrowing of the disc space. No disc bulge or herniation is seen. There is facet hypertrophy. No thecal sac effacement is identified. There is mild right and minimal left foraminal encroachment. MR/MR lumbar spine wo con IMPRESSION: LEVOSCOLIOSIS WITH MULTILEVEL DISCOVERTEBRAL DEGENERATIVE CHANGES AND ASSOCIATED STENOSIS, GREATEST AT L2-3. Impression dictated by: Ling Fields M.D.12/11/2024 11:57 AM Dictation Location: [place] [address] Electronically authenticated by: [id number] Y Date: 12/11/2024 11:57
--- NOTE | 2024-12-11 08:55 | CT_ITS ---
The [address] [address] Patient Name: EDIN SAMANIEGO MRN: [id number] date: 1950 Sex: F Assigned Patient Location: MRI Current Patient Location: MRI Accession/Order Number: [id number] Exam Date: 12/11/2024 11:57 Report Date: 12/11/2024 12:10 At the request of: KRZYSZTOF THOMPSON MD Procedure: CT chest wo con CT CHEST WITHOUT CONTRAST COMPARISON: 07/30/2021 CLINICAL DATA: Persistent cough for several months. Spiral images were obtained through chest without contrast. Images were reviewed using both narrow and wide window settings. This CT exam was performed using one or more following dose reduction techniques: Automated exposure control, adjustment of the mA and/or kV according to patient size, or use of iterative reconstruction technique. The heart is within normal limits for size. No pericardial effusion is present. The ascending aorta is ectatic. There is atherosclerotic plaque at the aortic arch, descending aorta and proximal great vessels. There are small nonpathologic mediastinal lymph nodes. There are calcified right hilar granulomas. A tiny hiatal hernia is seen. Dextroscoliotic curvature and endplate spurring is present at the spine. Atelectasis and/or scarring is noted. There is continued peripheral septal thickening, greater at the lower lungs. Lower lobe bronchiectasis is also still seen. There is no new consolidation or pleural effusion. There are scattered tiny pulmonary nodules, are dominantly at the right upper lobe. No pneumothorax is identified. Limited cuts through the upper abdomen show calcified granulomas at the spleen. CT/CT chest wo con IMPRESSION: SIMILAR INTERSTITIAL LUNG DISEASE WITH BRONCHIECTASIS AND TINY STABLE PULMONARY NODULES Impression dictated by: Ling Fields M.D.12/11/2024 12:10 PM Dictation Location: [place] [address] Electronically authenticated by: [id number] Y Date: 12/11/2024 12:10
== END 2024-12-11 08:42 | disposition home or self-care (01) ==
LOC: MRI 08:41
PROVIDERS: PCP Family Medicine; Visit Provider Family Medicine
DX: M54.16 Radiculopathy, lumbar region (principal); R05.3 Chronic cough; J84.9 Interstitial pulmonary disease, unspecified; M51.369 Other intervertebral disc degeneration, lumbar region without mention of lumbar back pain or lower extremity pain
CPT/HCPCS: 71250; 72148

== ENCOUNTER 2024-12-31 08:57 | Outpatient (OUT) | payer MEDICARE, SELFPAY ==
--- NOTE | 2024-12-31 09:00 | RT_ITS ---
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 Findings were considered accurate and reproducible, with exception of DLCO which did not meet ATS standards. Patient claims allergy to albuterol; alternative ipratropium was offered, but patient refused this option. Spirometry: -FEV1/FVC: Low normal @ 70% -FEV1: Normal @ 84% -FVC: Normal @ 89% Lung volumes by plethysmography: -RV: Increased @ 131% -TLC: Normal @ 101% Diffusion capacity: -Patient was unable to perform the maneuvers despite repeated coaching Impressions: -Spirometry trends towards mild obstruction. Increased RV may indicate possible air trapping. Overall testing suggests mild obstructive pulmonary disease such as asthma, COPD, or bronchiectasis. Unable to distinguish further as patient refused alternative ipratropium for bronchodilator, and she was unable to complete diffusion testing. Clinical correlation required. Electronically Signed On 12-31-2024 11:41:35 EDT by Tee Walker
[2024-12-31 09:05] LABS: Hemoglobin 11.8 g/dL (12.0-16.0)
== END 2024-12-31 08:58 | disposition home or self-care (01) ==
LOC: CARD 09:00
PROVIDERS: PCP Family Medicine; Visit Provider Family Medicine
DX: J47.9 Bronchiectasis, uncomplicated (principal)
CPT/HCPCS: 36415; 85018; 94010; 94726; 94729

== ENCOUNTER 2025-03-03 07:22 | Outpatient (OUT) | payer MEDICARE, SELFPAY ==
--- OUTSIDE RECORDS SUMMARY | 2025-03-03 07:26 | XMS_ITS | CCD ---
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 Name Role Phone PHYSICIAN, DEFAULT Admitting Unavailable [...] PROVIDER Attending Unavailable KRZYSZTOF HARP Referring Unavailable MARIOY, KRZYSZTOF Primary Care Unavailable RODRIGUEZ RIVERA Attending Unavailable HOY ., DR BLANKENSHIP Attending Unavailable HOY ., DR BLANKENSHIP Consulting Unavailable HOY ., DR BLANKENSHIP Primary Care Unavailable HOY ., DR BLANKENSHIP Admitting Unavailable TRENTON, DR GODWIN Cardona Consulting Unavailable HOY ., [...] DR BLANKENSHIP Primary Care Unavailable ZIEBER, DR ADNIEL Erazo Consulting Unavailable HOY ., DR BLANKENSHIP [...] Unavailable ZIEBER, DR DANIEL Erazo Consulting Unavailable HAY ., DR STRATTON Consulting Unavailable DERROW, GONZALEZ Consulting Unavailable LEONEL ., APRIL Consulting Unavailable HOY ., DR BLANKENSHIP Attending Unavailable HOY ., DR BLANKENSHIP Consulting Unavailable HOY ., DR BLANKENSHIP Primary Care Unavailable HOY ., DR BLANKENSHIP Admitting Unavailable ZIEBER, DR DANIEL Erazo Consulting Unavailable PAY ., DR JACINTO Consulting Unavailable JUMMA, KYLE Consulting Unavailable BOYD, VANESSA Consulting Unavailblane ELAINE, RAVEN Consulting Unavailable COATNATALIIA Leos Consulting [...] DR BLANKENSHIP Admmilton Unavailable HOY ., DR BLANKENSHPI Attending Unavailable HOY ., DR BLANKENSHIP Consulting [...] Unavailable HOY ., DR BLANKENSHIP Attending Unavailable MARIOY ., DR BLANKENSHIP Primary Care Unavailable MD Ben Sanchez Attending Provider MD Krzysztof Harp Primary Care Provider [phone] Krzysztof Harp MD Primary Care Provider [phone] Raven Sesay DO Unavailable [phone] KRZYSZTOF HARP Primary Care Unavailable FREEMAN WARD Attending Unavailab le HOAlison, KRZYSZTOF M Referring Unavailable HOY, KRZYSZTOF M Primary Care Unavailable CHRISTOPHERNIDIA Admitting Unavailable NIDIA LATHAM Attending Unavailable MARIOY, KRZYSZTOF M Primary Care Unavailable DARSHAN HERNANDEZ Attending Unavailable CLEVE SHETH Attending Unavailable CLEVE SHETH Attending Unavailable MERYL, CLEVE Arguelles Attending Unavailable MERYL, CLEVE Arguelles Referring Unavailable MERYL, CLEVE Arguelles Referring Unavailable CLEVE SHETH Attending Unavailable RAVEN SESAY Attending Unavailable MERYL, CLEVE Arguelles Referring Unavailable MERYL, CLEVE Arguelles Attending Unavailable RAVEN SESAY Attending Unavailable RAVEN SESAY Attending Unavailable Krzysztof Harp MD Primary Care Provider [phone] Krzysztof Harp MD Primary Care Provider [phone] MARGIE HARPLAS M Referring Unavailable HOY, KRZYSZTOF M Primary Care Unavailable HOY, KRZYSZTOF M Referring Unavailable HOY, KRZYSZTOF M Primary Care Unavailable KAITLIN CARCAMO Attending Unavailable HOY, KRZYSZTOF M Referring Unavailable HOY, KRZYSZTOF M Primary Care Unavailable KAITLIN CARCAMO Attending Unavailable HOY, KRZYSZTOF M Referring Unavailable HOY, KRZYSZTOF M Primary Care Unavailable Ben Sanchez Admitting Unavailable Ben Sanchez Attending Unavailable Marioy, Krzysztof M Primary Care Unavailable Vasyl Chicas Admitting Unavailable Vasyl Chicas Attending Unavailable Hoy, Krzysztof M Primary Care Unavailable Allergies Allergy Classification Reported Allergen(s) Allergy Type Date of Onset Reaction(s) Facility (9 sources) Morphine; Translations: [MORPHINE] Drug Allergy 7 Vomiting [facility] Repository (7 sources) NSAIDs; Translations: [NSAIDS (NON-STEROIDAL ANTI-INFLAMMATOR Y DRUG)] Drug allergy (disorder) 9 GI Bleeding [facility] Repository (1 source) Penicillin Drug Allergy 9 [facility] Repository (1 source) predniSONE Drug Allergy 9 [facility] Repository (2 sources) Iodinated Contrast- Oral and IV Dye Drug allergy (disorder) 5 [facility] Repository (20 sources) Penicillins; Translations: [PENICILLINS] Propensity to adverse reactions to drug (disorder) 5 Rash [facility] Repository (20 sources) IODINATED CONTRAST MEDIA; Translations: [IODINATED CONTRAST MEDIA] Propensity to adverse reactions to drug (disorder) 3 Anaphylaxis, Other (See Comments) [facility] Repository (1 source) levoFLOXacin Drug Allergy 3 [facility] Repository (1 source) meloxicam Drug Allergy 3 [facility] Repository (4 sources) NSAIDS (Non-Steroidal Anti-Inflamma; Translations: [NSAIDS (Non-Steroidal Anti-Inflamma] Propensity to adverse reactions 4 Stomach Ulcer [facility] (20 sources) Morphine Drug Allergy 8 Nausea And Vomiting, Vomiting [facility] (8 sources) Non-steroidal anti-inflammator y agent Propensity to adverse reactions 4 Rash [facility] (7 sources) Contrast media; Translations: [DYE] Propensity to adverse reactions to drug (disorder) 7 Swelling [facility] Repository (7 sources) MORPHOLINE ANALOGUES; Translations: [MORPHOLINE ANALOGUES] Propensity to adverse reactions to drug (disorder) 7 Vomiting [facility] Repository (3 sources) Non-steroidal anti-inflammator y agent Propensity to adverse reactions to drug 4 GI Bleeding [facility] (1 source) Morphine Drug Allergy [facility] Repository Medications Current Medications Medication Drug Class(es) Dates Sig (Normalized) Sig (Original) acetaminophen 500 mg oral tablet (20 sources) take 1 tablet by mouth every six hours as needed for pain acetaminophen (TYLENOL) 500 mg tablet Take 1 tablet (500 mg total) by mouth every 6 (six) hours as needed for pain. Active aspirin 81 mg delayed release oral tablet (20 sources) Platelet Aggregation Inhibitor, Nonsteroidal Anti-inflammatory Drug Start: 02-19-2024 take 1 tablet by mouth in the morning aspirin 81 mg Take 1 tablet (81 mg total) by mouth in the morning. 02/19/2024 Active atorvastatin 20 mg oral tablet (20 sources) HMG-CoA Reductase Inhibitor Start: 01-28-2024 take 20 mg by mouth once daily at bedtime Atorvastatin Active 20 MG PO Daily at bedtime January 28, 2024 12:00am End: 12-25-2024 take 1 tablet by mouth in the morning atorvastatin (LIPITOR) 40 mg tablet Take 1 tablet (40 mg total) by mouth in the morning. 12/25/2024 Discontinued (Discontinued by another clinician) clopidogrel 75 mg oral tablet (20 sources) P2Y12 Platelet Inhibitor Start: 01-28-2024 take 1 tablet by mouth in the morning clopidogreL (PLAVIX) 75 mg tablet Take 1 tablet (75 mg total) by mouth in the morning. 01/28/2024 Active gabapentin 100 mg oral capsule (2 sources) [...] 12:00am February 19, 2024 9:15am metoprolol tartrate 50 mg oral tablet (20 sources) beta-Adrenergic Facundo Start: 03-27-2024 take 1 tablet by mouth in the morning metoprolol tartrate (LOPRESSOR) 50 mg tablet Take 1 tablet (50 mg total) by mouth in the morning. 03/27/2024 Active Start: 03-27-2024 metoprolol tar trate (Lopressor) 25 MG tablet 03/27/2024 Active pantoprazole 40 mg delayed release oral tablet (20 sources) Proton Pump Inhibitor Start: 01-28-2024 End: 02-19-2024 Pantoprazole Active 40 MG PO Daily 30 30 February 19, 2024 9:26am Take 1 tablet orally 30 minutes before morning meal. salmon calcitonin 200 unt/actuat nasal spray (16 sources) Calcitonin Start: 06-17-2024 End: 08-14-2024 take 1 spray(s) nasal route in the morning calcitonin, salmon, (MIACALCIN) 200 unit/actuation nasal spray Administer 1 spray into alternating nostrils in the morning. 07/15/2024 08/14/2024 Active Sod Picosulf-Mag Ox-Citric Ac [...] 28, 2024 12:00am February 19, 2024 9:13am 1 ml denosumab 60 mg/ml prefilled syringe (1 source) RANK Ligand Inhibitor End: 07-16-2024 inject 60 mg by subcutaneous injection once denosumab (PROLIA) 60 mg/mL syringe injection Inject 60 mg under the skin once. 07/16/2024 Discontinued (Discontinued by another clinician) lidocaine 0.05 mg/mg medicated patch (1 source) Antiarrhythmic, Amide Local Anesthetic Start: 06-13-2024 End: 07-16-2024 apply 1 dose transdermal route once daily, then apply 1 dose transdermal route every twelve hours lidocaine (LIDODERM) 5 % Indications: Left hip pain Place 1 patch on the skin daily. Remove & Discard patch within 12 hours or as directed by 30 patch 06/13/2024 07/16/2024 Discontinued (Patient Never Started This Medication) rosuvastatin calcium 20 mg oral tablet (1 source) HMG-CoA Reductase Inhibitor End: 07-16-2024 take 1 tablet by mouth in the morning rosuvastatin (CRESTOR) 20 mg tablet Take 1 tablet (20 mg total) by mouth in the morning. 07/16/2024 Discontinued (Discontinued by another clinician) Problems Active Problems Problem Classification Problem Date Documented Da te Episodic/Chronic Abdominal pain (1 source) Generalized abdominal pain; [...] Coronary atherosclerosis; Translations: [Atherosclerotic heart disease of pala coronary artery without angina pectoris] Onset: 02-11-2010 [...] bleeding] Onset: 09-12-2018 02-19-2024 Chronic Esophageal disorders (18 sources) Gastro-esophageal reflux disease without esophagitis; Translations: [Gastroesophageal reflux disease] Onset: 02-11-2010 05-24-2023 Chronic Essential hypertension (6 sources) Essential (primary) hypertension; Translations: [ESSENTIAL (PRIMARY) HYPERTENSION] Onset: 11-19-2018 Chronic Fluid and electrolyte disorders (2 sources) Dehydration; Translations: [Hyperkalemia] Onset: 10-25-2022 Episodic Gastrointestinal hemorrhage (2 sources) Rectal hemorrhage; Translations: [Gastrointestinal hemorrhage] Onset: 12-25-2024 12-31-2024 Episodic Genitourinary symptoms and ill-defined conditions (1 [...] knee joint] Onset: 01-17-2023 01-09-2024 Chronic Osteoporosis (17 sources) Age-related osteoporosis without current pathological fracture; Translations: [Osteoporosis] Onset: 07-29-2013 01-09-2024 Chronic Other acquired deformities (1 source) Spondylolisthesis, lumbar region; Translations: [Spondylolisthesis, lumbar region] Onset: 02-26-2025 Episodic Other aftercare (2 sources) supervisor intermediates (current) use of aspirin; Translations: [CARE HOME (CURRENT) USE OF ASPIRIN] Onset: 11-19-2018 Episodic Other aftercare (1 source) Other jail (current) drug therapy; Translations: [OTH CARE HOME CURRENT DRUG THERAPY] Onset: 01-17-2023 Episodic Other [...] in left hip] Onset: 06-13-2024 Episodic Other skin disorders (4 sources) Nonscarring hair loss, unspecified; Translations: [NONSCARRING HAIR LOSS UNSPECIFIED] Onset: 01-10-2023 Episodic Other upper respiratory infections (1 source) Acute sinusitis, unspecified; Translations: [ACUTE SINUSITIS UNSPECIFIED] Onset: 10-19-2022 Episodic Pancreatic disorders (not diabetes) (20 sources) Other chronic pancreatitis; Translations: [Chronic pancreatitis] [...] Date Documented Da te Episodic/Chronic Abdominal hernia (8 sources) Diaphragmatic hernia without obstruction or gangrene; Translations: [Hiatal hernia] Onset: 10-25-2022 02-19-2024 Episodic Gastroduodenal ulcer (except hemorrhage) (2 sources) H/O: gastric ulcer; Translations: [Personal history of peptic ulcer disease] Onset: 07-16-2024 07-16-2024 Episodic Nausea and vomiting (2 sources) Vomiting; Translations: [Vomiting, unspecified] Onset: 07-16-2024 07-16-2024 Episodic Other bone disease and musculoskeletal deformities (15 sources) Costal chondritis; Translations: [Chondrocostal junction syndrome [Tietze]] Onset: 05-24-2023 05-24-2023 Episodic Other gastrointestinal disorders (4 sources) Constipation, unspecified; Translations: [CONSTIPATION UNSPECIFIED] Onset: 02-14-2022 Episodic Other gastrointestinal disorders (1 source) Dysphagia; Translations: [Dysphagia, unspecified] 07-16-2024 Episodic Other gastrointestinal disorders (1 source) Dysphagia, unspecified; Translations: [Dysphagia, unspecified] Onset: 07-16-2024 Episodic Other gastrointestinal disorders (1 source) Heartburn Onset: 07-16-2024 Episodic Other nervous system disorders (4 sources) Dysarthria and anarthria; Translations: [DYSARTHRIA AND ANARTHRIA] Onset: 05-26-2022 Episodic Other screening for suspected conditions (not mental disorders or infectious disease) (11 sources) Abnormal result of other cardiovascular function study; Translations: [Other specified abnormal findings of blood chemistry] Onset: 11-19-2018 02-19-2024 Episodic Residual codes; unclassified (1 source) Pain, unspecified; Translations: [Pain, unspecified] Onset: 01-07-2024 Episodic Results Test Name Value Interpretation Reference Range Facility XR cerv spine AP/LAT/FLX/EXT on 02-26-2025 XR cerv spine AP/LAT/FLX/EXT [facility] Main [place] [address] [place] [address] XRay Report Signed Patient: Sheila Mac MR#: [id number] 1859 : 1950 Acct:[id number] Age/Sex: 74 / F ADM Date: 02/26/25 Loc: [place] Room: Type: [facility] Attending Dr: Vasyl Chicas MD Copies to: Vasyl Chicas MD Ordering Provider: Vasyl Chicas MD Date of Service: 02/26/25 XR/XR cerv spine AP/LAT/FLX/EXT: M54.2 - Cervicalgia AP with lateral neutral, flexion-extension viewscervical spine HISTORY: Neck pain COMPARISON: None POSTOPERATIVE CHANGES: None BONY ALIGNMENT: Mild straightening and mild curvature HYPERMOBILITY::No hypermobility LISTHESIS:3 mm C4-5 degenerative anterolisthesis FRACTURE: None DISC DEGENERATION: Vertebral body bony fusion changes from C5 to C7. Facet spondylosis at the C4-5 level. FACETS: Extensive facet degeneration FORAMEN: Not assessed DENS: Intact CRANIOCERVICAL JUNCTION: Unremarkable SOFT TISSUES: Calcified plaquing of carotid bifurcations XR/XR cerv spine AP/LAT/FLX/EXT IMPRESSION: No hypermobility. Vertebral body fusion changes from C5-C7. Extensive spondylosis and mild anterolisthesis at C4-5 level. Extensive facet generation. Impression dictated by: Elian Luna M.D. 02/26/2025 12:52 PM Dictation Location: RADIO-PC-23 Transcribed By: LAVON 02/26/25 1252 Dictated By: Elian Luna DO 02/26/25 1249 Signed By: 02/26/25 1252 Normal [facility] XR lumbar spine 6V w bending on 02-26-2025 XR lumbar spine 6V w bending [facility] Main [place] [address] [place] [address] XRay Report Signed Patient: Sheila Mac MR#: [id number] 1861 : 1950 Acct:[id number] Age/Sex: 74 / F ADM Date: 02/26/25 Loc: [place] Room: Type: [facility] Attending Dr: Vasyl Chicas MD Copies to: Vasyl Chicas MD Ordering Provider: Vasyl Chicas MD Date of Service: 02/26/25 XR/XR lumbar spine 6V w bending: M43.16 - Spondylolisthesis, lumbar region 6 views Lumbar Spinewith bending HISTORY: Lumbar spinal listhesis. Lower back pain. Buttock pain. Leg weakness COMPARISON: 10/01/2024 POSTSURGICAL CHANGES: None BONY ALIGNMENT: Moderate scoliosis redemonstrated. HYPERMOBILITY:No hypermobility LISTHESIS:Similar mild degenerative listhesis. Left lateral 1 cm listhesis at the L2-3 level redemonstrated. FRACTURE: None DEGENERATIVE CHANGES: Extensive lower lumbar degenerative changes redemonstrated. SOFT TISSUES: Unremarkable BONY MINERALIZATION:Diffu se decreased bony mineralization XR/XR lumbar spine 6V w bending IMPRESSION: Similar moderate scoliosis with degenerative listhesis in greatest at the L2-3 level. Diffuse osteopenia. No acute bony findings. No hypermobility. Impression dictated by: Elian Luna M.D. 02/26/2025 2:14 PM Dictation Location: RADIO-PC-23 Transcribed By: LAVON 02/26/25 1414 Dictated By: Elian Luna DO 02/26/25 1411 Signed By: 02/26/25 1414 Normal [facility] Surgical Pathologyon 11-18-2 024 Surgical Pathology Normal [facility] Comment on above: Result Comment: [facility] [address] [place] [address] Surgical Pathology Consultation Patient Name:SHEILA MAC ADOB:1950 (Age: 74)Gender:FTaken:4Reported:4Physician(s):Kimberly Latham MD ([phone])Copy To: Rec. #:[id number]: #[id number] Final Pathologic Diagnosis 1. Duodenum biopsy first portion: Duodenal mucosa with no significant histopathologic changes. No active inflammation, celiac disease, parasites, granuloma or atypia. 2. Antrum biopsy: Gastric antral mucosa with no significant histopathologic changes. No intestinal metaplasia or dysplasia. No Helicobacter pylori organisms are seen on routine sections. Report Electronically Signed Out [facility]ak/07/31/2024Rodriguez Vargas MD Interpretation performed at [facility], [address] [place] [address], License number: [id number]. Clinical History Vomiting, gastroesophageal reflux, dysphagia Gross Description 1. Received in formalin labeled ASLINGER, #1: Duodenum is a single hathaway bit of soft tissue, 0.2 cm in greatest dimension. Filtered and submitted in a single cassette. (1, ns, [id number], m7) MG 2. Received in formalin labeled ASLINGER, #2: Antrum is a single hathaway bit of soft tissue, 0.3 cm in greatest dimension. Filtered and submitted in a single cassette. (1, ns, [id number], m7) MG [facility]/07/28/2024GR Specimen(s) Received 1: Duodenum biopsy first portion 2: Antrum biopsy Fee Codes(s): 1; 53460 2; 41809 EMG 1 Extremeityon 4 C8 radiculopathy on the left, moderate [facility] NVC 5-6 Nerveson 07-17-2024 C8 radiculopathy on the left, moderate [facility] XR HIP LT 2-3 VIEWS W OR [...] Christopher Burns MD on 06/13/2024 10:17 PM IRod MD have personally reviewed the image(s) and agree with and/or edited the report Finalized by Rod Muller MD on 06/13/2024 10:24 PM Normal [facility] XR SPINE LUMBAR 2 OR 3 VWSon [...] Gonzales MD on 06/13/2024 10:20 PM Normal [facility] MR HIP RIGHT WO IV CONTRASTo n [...] Order Comment: MRI R T hip w/o. [facility] XR Hip - right 3 [facility] [...] of the right hip Hemal Sheth D.O. [facility] Radiology Study observation (narrative) [facility] ColonoscopyOrdered By: Kera George on 03-26-2024 [facility] US AYESHA DOP LEG LTon 01-16-20 23 [...] DANIEL MARIE Date: 2023-01-15 08:25 Normal [facility] XR ANKLE LT MIN 3 Von [...] GONZALEZ PATEL Date: 2023-01-15 07:28 Normal [facility] VITAMIN B1 (THIAMINE)on Vit. B1, Whole Blood 118.1 nmol/L Normal 66.5-200.0 e [facility] Comment on above: Performed By: #### C BC #### [facility] [address] [place] [address] Dr. Ekta Funk BNPon 01-10-2023 Natriuretic peptide B (Bld) [Mass/Vol] 980.0 pg/mL Critically high <=900.0 [facility] Comment on above: Performed By: #### C VDTBH #### [facility] [address] [place] [address] Dr. Ekta Funk CBC AUTO DIFFon 01-10-2023 BASO # 0.1 103/ul Normal 0.0-0.1 [facility] Comment on above: Performed By: #### C MP #### [facility] [address] [place] [address] Dr. Ekta Funk Basophils/100 WBC (Bld) 1.0 % Normal 0.2-2.0 [facility] Comment on above: Performed By: #### C MP #### [facility] [address] [place] [address] Dr. Ekta Funk EO # 0.4 103/ul Normal 0.0-0.7 [facility] Comment on above: Performed By: #### C MP #### [facility] [address] [place] [address] Dr. Ekta Funk Eosinophils/100 WBC (Bld) 3.7 % Normal 0.9-7.0 [facility] Comment on above: Performed By: #### C MP #### [facility] [address] [address] [address] Ekta Funk Erythrocyte distribution width (RBC) [Ratio] 13.2 % Normal 11.0-15.0 [facility] Comment on above: Performed By: #### C MP #### [facility] [address] [place] [address] Dr. Ekta Funk Hematocrit (Bld) [Volume fraction] 35.1 % Critically low 36.0-48.0 [facility] Comment on above: Performed By: #### C MP #### [facility] [address] [place] [address] Dr. Ekta Funk Hemoglobin (Bld) [Mass/Vol] 11.3 g/dL Critically low 12.0-16.0 [facility] Comment on above: Performed By: #### C MP #### [facility] [address] [place] [address] Dr. Ekta Funk IG # 0.04 10e3/ul Critically high 0.00-0.03 [facility] Comment on above: Performed By: #### C MP #### [facility] [address] [place] [address] Dr. Ekta Funk IG % 0.4 % Normal 0.0-0.5 [facility] Comment on above: Performed By: #### C MP #### [facility] [address] [place] [address] Dr. Ekta Funk LYMPH # 2.0 103/ul Normal 1.2-3.8 [facility] Comment on above: Performed By: #### C MP #### [facility] [address] [place] [address] Dr. Ekta Funk Lymphocytes/100 WBC (Bld) 20.8 % Normal 20.5-60.0 [facility] Comment on above: Performed By: #### C MP #### [facility] [address] [place] [address] Dr. Ekta Funk MANUAL DIFF REQ NO Normal [facility] Comment on above: Performed By: #### C MP #### [facility] [address] [place] [address] Dr. Ekta Funk MCH (RBC) [Entitic mass] 32.3 pg Normal 26.7-34.0 [facility] Comment on above: Performed By: #### C MP #### [facility] [address] [place] [address] Dr. Ekta Funk MCHC (RBC) [Mass/Vol] 32.2 g/dL Normal 29.9-35.2 [facility] Comment on above: Performed By: #### C MP #### [facility] [address] [place] [address] Dr. Ekta Funk MCV (RBC) [Entitic vol] 100.3 fL Critically high 81.0-99.0 [facility] Comment on above: Performed By: #### C MP #### [facility] [address] [place] [address] Dr. Ekta Funk MONO # 0.8 103/ul Normal 0.3-0.8 [facility] Comment on above: Performed By: #### C MP #### [facility] [address] [place] [address] Dr. Ekta Funk Monocytes/100 WBC (Bld) 7.9 % Normal 1.7-12.0 [facility] Comment on above: Performed By: #### C MP #### [facility] [address] [place] [address] Dr. Ekta Funk NEUT # 6.4 103/ul Normal 1.4-6.5 [facility] Comment on above: Performed By: #### C MP #### [facility] [address] [place] [address] Dr. Ekta Funk Neutrophils/100 WBC (Bld) 66.2 % Normal 43.0-75.0 [facility] Comment on above: Performed By: #### C MP #### [facility] [address] [place] [address] Dr. Ekta Funk Platelet mean volume (Bld) [Entitic vol] 9.6 fL Normal 9.5-13.5 [facility] Comment on above: Performed By: #### C MP #### [facility] [address] [address] [address] Ekta Funk PLT 255 103/ul Normal 150-450 [facility] Comment on above: Performed By: #### C MP #### [facility] [address] [place] [address] Dr. Ekta Funk RBC 3.50 106/ul Critically low 4.20-5.40 [facility] Comment on above: Performed By: #### C MP #### [facility] [address] [place] [address] Dr. Ekta Funk WBC 9.7 103/ul Normal 4.0-11.0 [facility] Comment on above: Performed By: #### C MP #### [facility] [address] [place] [address] Dr. Ekta Funk CRPon 01-10-2023 CRP [Mass/Vol] mg/L Normal <=1.0 [facility] Comment on above: Performed By: #### C BC #### [facility] [address] [place] [address] Dr. Ekta Funk FREE THYROXINE INDEX T7on FTI 2.62 Normal 1.30-4.50 [facility] Comment on above: Performed By: #### C BC #### [facility] [address] [place] [address] Dr. Ekta Funk T3U 32.0 % Normal 30.0-39.0 [facility] Comment on above: Performed By: #### C BC #### [facility] [address] [place] [address] Dr. Ekta Funk T4 [Mass/Vol] 8.20 ug/dL Normal 4.80-13.90 [facility] Comment on above: Performed By: #### C BC #### [facility] [address] [place] [address] Dr. Ekta Funk IRONon 01-10-2023 Iron [Mass/Vol] 61.0 ug/dL Normal 50.0-170.0 [facility] Comment on above: Performed By: #### B 12FOCAROLYN Lui, IRON #### [facility] [address] [place] [address] Dr. Ekta Funk PROF 14(COMP METB)on 023 Albumin [Mass/Vol] 2.9 g/dL Critically low 3.4-5.0 [place] Comment on above: Performed By: #### C VDTBH #### [facility] [address] [address] [address] Ekta Funk Albumin/Globulin [Mass ratio] 0.6 {ratio} Normal [facility] Comment on above: Performed By: #### C VDTBH #### [facility] [address] [place] [address] Dr. Ekta Funk ALP [Catalytic activity/Vol] 101 U/L Normal 46-116 [facility] Comment on above: Performed By: #### C VDTBH #### [facility] [address] [place] [address] Dr. Ekta Funk ALT [Catalytic activity/Vol] 16 U/L Normal 14-59 [facility] Comment on above: Performed By: #### C VDTBH #### [facility] [address] [place] [address] Dr. Ekta Funk Anion gap [Moles/Vol] 14.6 mmol/L Normal [place] Comment on above: Performed By: #### C VDTBH #### [facility] [address] [place] [address] Dr. Ekta Funk AST [Catalytic activity/Vol] 15 U/L Normal 15-37 [facility] Comment on above: Performed By: #### C VDTBH #### [facility] [address] [place] [address] Dr. Ekta Funk Bilirubin [Mass/Vol] 0.4 mg/dL Normal 0.2-1.0 [facility] Comment on above: Performed By: #### C VDTBH #### [facility] [address] [place] [address] Dr. Ekta uFnk Calcium [Mass/Vol] 9.2 mg/dL Normal 8.5-10.1 [facility] Comment on above: Performed By: #### C VDTBH #### [facility] [address] [address] [address] Ekta Funk Chloride [Moles/Vol] 107 mmol/L Normal 98-107 [facility] Comment on above: Performed By: #### C VDTBH #### [facility] [address] [address] [address] Ekta Funk CO2 [Moles/Vol] 24.4 mmol/L Normal 21.0-32.0 [facility] Comment on above: Performed By: #### C VDTBH #### [facility] [address] [place] [address] Dr. Ekta Funk Creatinine [Mass/Vol] 2.02 mg/dL Critically high 0.55-1.02 [facility] Comment on above: Performed By: #### C VDTBH #### [facility] [address] [place] [address] Dr. Ekta Funk EGFR-AF [place] 29 mL/min/1.73m2 Critically low >=60 [facility] Comment on above: Performed By: #### C VDTBH #### [facility] [address] [place] [address] Dr. Ekta Funk EGFR-NON AF [place] 24 mL/min/1.73m2 Critically low >=60 [facility] Comment on above: Performed By: #### C VDTBH #### [facility] [address] [place] [address] Dr. Ekta Funk Globulin (S) [Mass/Vol] 4.5 g/dL Normal [facility] Comment on above: Performed By: #### C VDTBH #### [facility] [address] [address] [address] Ekta Funk Glucose [Mass/Vol] 103 mg/dL Normal 74-106 [facility] Comment on above: Performed By: #### C VDTBH #### [facility] [address] [place] [address] Dr. Ekta Funk Potassium [Moles/Vol] 5.0 mmol/L Normal 3.5-5.1 [facility] Comment on above: Performed By: #### C VDTBH #### [facility] [address] [place] [address] Dr. Ekta Funk Protein [Mass/Vol] 7.4 g/dL Normal 6.4-8.2 [facility] Comment on above: Performed By: #### C VDTBH #### [facility] [address] [place] [address] Dr. Ekta Funk Sodium [Moles/Vol] 141 mmol/L Normal 136-145 [facility] Comment on above: Performed By: #### C VDTBH #### [facility] [address] [place] [address] Dr. Ekta Funk Urea nitrogen [Mass/Vol] 23.0 mg/dL Critically high 7.0-18.0 [facility] Comment on above: Performed By: #### C VDTBH #### [facility] [address] [place] [address] Dr. Ekta Funk Urea nitrogen/Creatinine [Mass ratio] 11.4 mg/mg Normal [facility] Comment on above: Performed By: #### C VDTBH #### [facility] [address] [place] [address] Dr. Ekta Funk TSHon 01-10-2023 TSH 1.793 uIU/mL Normal 0.358-3.740 [facility] Comment on above: Performed By: #### C VDTBH #### [facility] [address] [place] [address] Dr. Ekta Funk VIT B12 AND FOLATEon 023 Cobalamin (Vitamin B12) [Mass/Vol] 175.0 pg/mL Critically low 193.0-986.0 [facility] Comment on above: Performed By: #### B 12FOL, VITAD, IRON #### [facility] [address] [place] [address] Dr. Ekta Funk FOLATE 10.30 ng/mL Normal 8.60-58.90 [facility] Comment on above: Performed By: #### B 12FOL, VITAD, IRON #### [facility] [address] [address] [address] Ekta Funk VITAMIN D 25 OHon 01-10-2023 VIT D 25-OH 24.0 ng/mL Normal [facility] Comment on above: Performed By: #### B 12FOL, VITAD, IRON #### [facility] [address] [address] [address] Ekta Funk VIT D RANGES SEE BELOW Normal [facility] Comment on above: Result Comment: <20 ng/mL Vit D deficient 20 - <30 ng/mL Vit D insufficient 30 - 100 ng/mL Vit D sufficient >100 ng/mL Potential Toxicity Performed By: #### B 12FOL, VITAD, IRON #### [facility] [address] [address] [address] Ekta Funk Office Visiton 12-15-2022 Follow-up visit [id number] Sheila Mac 1950 F Date Provider Department Center 12/15/2022 [facility] No family history on file Level of Service:70567 [place] OFFICE/OUTPATIENT ESTABLISHED MOD MDM 30-39 MIN Reason for Visit and Comments: Follow-up [611138] - Is here f/u stress test pt states she had Bruises all over both legs symptoms stated a week ago also stated legs are swollen and burning Normal [facility] NM STRESS/REST MULTIon 12-05 NM STRESS/REST MULTI Patient: SHEILA MAC Exam Date: 12/05/2022 : 1950 Gender:F Ordering : DR KRZYSZTOF HARP . Admission #: [id number] Family : Order #: [id number] CLICK HERE TO VIEW EXAM RADIOLOGY REPORT [...] on 12/06/2022 at 07:26 Normal [facility] ECHOCARDIO M/2D COMPLETEon 0 11-27-2022 ECHOCARDIO M/2D COMPLETE Patient: SHEILA MAC Exam Date: 11/27/2022 : 1950 Gender:F Ordering : DR KRZYSZTOF HARP . Admission #: [id number] Family : Order #: [id number] CLICK HERE TO VIEW EXAM ECHOCARDIOGRAM REPORT [...] M.D. on 11/27/2022 at 14:39 Normal [facility] AUTO DIFFon 11-26-2022 BASO # 0.0 103/ul Normal 0.0-0.1 [facility] Comment on above: Performed By: #### I NSULIN #### [facility] [address] [place] [address] Dr. Ekta Funk Basophils/100 WBC (Bld) 0.6 % Normal 0.2-2.0 [facility] Comment on above: Performed By: #### I NSULIN #### [facility] [address] [address] [address] Ekta Funk EO # 0.3 103/ul Normal 0.0-0.7 [facility] Comment on above: Performed By: #### I NSULIN #### [facility] [address] [address] [address] Ekta Funk Eosinophils/100 WBC (Bld) 4.8 % Normal 0.9-7.0 [facility] Comment on above: Performed By: #### I NSULIN #### [facility] [address] [address] [address] Ekta Funk Erythrocyte distribution width (RBC) [Ratio] 13.3 % Normal 11.0-15.0 [facility] Comment on above: Performed By: #### I NSULIN #### [facility] [address] [place] [address] Dr. Ekta Funk Hematocrit (Bld) [Volume fraction] 29.1 % Critically low 36.0-48.0 [facility] Comment on above: Performed By: #### I NSULIN #### [facility] [address] [address] [address] Ekta uFnk Hemoglobin (Bld) [Mass/Vol] 9.5 g/dL Critically low 12.0-16.0 [facility] Comment on above: Performed By: #### I NSULIN #### [facility] [address] [address] [address] Ekta Funk IG # 0.07 10e3/ul Critically high 0.00-0.03 [facility] Comment on above: Performed By: #### I NSULIN #### [facility] [address] [address] [address] Ekat Funk IG % 1.0 % Critically high 0.0-0.5 [facility] Comment on above: Performed By: #### I NSULIN #### [facility] [address] [place] [address] Dr. Ekta Funk LYMPH # 1.2 103/ul Normal 1.2-3.8 [facility] Comment on above: Performed By: #### I NSULIN #### [facility] [address] [address] [address] Ekta Funk Lymphocytes/100 WBC (Bld) 17.2 % Critically low 20.5-60.0 [facility] Comment on above: Performed By: #### I NSULIN #### [facility] [address] [place] [address] Dr. Ekta Funk MANUAL DIFF REQ NO Normal [facility] Comment on above: Performed By: #### I NSULIN #### [facility] [address] [address] [address] Ekta Funk MCH (RBC) [Entitic mass] 31.7 pg Normal 26.7-34.0 [facility] Comment on above: Performed By: #### I NSULIN #### [facility] [address] [place] [address] Dr. Ekta Funk MCHC (RBC) [Mass/Vol] 32.6 g/dL Normal 29.9-35.2 [facility] Comment on above: Performed By: #### I NSULIN #### [facility] [address] [address] [address] Ekta Funk MCV (RBC) [Entitic vol] 97.0 fL Normal 81.0-99.0 [facility] Comment on above: Performed By: #### I NSULIN #### [facility] [address] [address] [address] Ekta Funk MONO # 0.8 103/ul Normal 0.3-0.8 [facility] Comment on above: Performed By: #### I NSULIN #### [facility] [address] [address] [address] Ekta Funk Monocytes/100 WBC (Bld) 11.1 % Normal 1.7-12.0 [facility] Comment on above: Performed By: #### I NSULIN #### [facility] [address] [address] [address] Ekta Funk NEUT # 4.5 103/ul Normal 1.4-6.5 [facility] Comment on above: Performed By: #### I NSULIN #### [facility] [address] [address] [address] Ekta Funk Neutrophils/100 WBC (Bld) 65.3 % Normal 43.0-75.0 [facility] Comment on above: Performed By: #### I NSULIN #### [facility] [address] [address] [address] Ekta Funk Platelet mean volume (Bld) [Entitic vol] 9.4 fL Critically low 9.5-13.5 [facility] Comment on above: Performed By: #### I NSULIN #### [facility] [address] [address] [address] Ekta Funk PLT 263 103/ul Normal 150-450 [facility] Comment on above: Performed By: #### I NSULIN #### [facility] [address] [address] [address] Ekta Funk RBC 3.00 106/ul Critically low 4.20-5.40 [facility] Comment on above: Performed By: #### I NSULIN #### [facility] [address] [place] [address] Dr. Ekta Funk WBC 6.9 103/ul Normal 4.0-11.0 [facility] Comment on above: Performed By: #### I NSULIN #### [facility] [address] [place] [address] Dr. Ekta Funk PROF 14(COMP METB)on 023 Albumin [Mass/Vol] 2.2 g/dL Critically low 3.4-5.0 [place] Comment on above: Performed By: #### C MP #### [facility] [address] [place] [address] Dr. Ekta Funk Albumin/Globulin [Mass ratio] 0.6 {ratio} Normal [facility] Comment on above: Performed By: #### C MP #### [facility] [address] [place] [address] Dr. Ekta Funk ALP [Catalytic activity/Vol] 82 U/L Normal 46-116 [facility] Comment on above: Performed By: #### C MP #### [facility] [address] [place] [address] Dr. Ekta Funk ALT [Catalytic activity/Vol] 13 U/L Critically low 14-59 [facility] Comment on above: Performed By: #### C MP #### [facility] [address] [place] [address] Dr. Ekta Funk Anion gap [Moles/Vol] 14.0 mmol/L Normal [place] Comment on above: Performed By: #### C MP #### [facility] [address] [place] [address] Dr. Ekta Funk AST [Catalytic activity/Vol] 18 U/L Normal 15-37 [facility] Comment on above: Performed By: #### C MP #### [facility] [address] [place] [address] Dr. Ekta Funk Bilirubin [Mass/Vol] 0.4 mg/dL Normal 0.2-1.0 [facility] Comment on above: Performed By: #### C MP #### [facility] [address] [address] [address] Ekta Funk Calcium [Mass/Vol] 8.6 mg/dL Normal 8.5-10.1 [facility] Comment on above: Performed By: #### C MP #### [facility] [address] [address] [address] Ekta Funk Chloride [Moles/Vol] 108 mmol/L Critically high 98-107 [facility] Comment on above: Performed By: #### C MP #### [facility] [address] [address] [address] Ekta Funk CO2 [Moles/Vol] 19.6 mmol/L Critically low 21.0-32.0 [facility] Comment on above: Performed By: #### C MP #### [facility] [address] [address] [address] Ekta Funk Creatinine [Mass/Vol] 1.70 mg/dL Critically high 0.55-1.02 [facility] Comment on above: Performed By: #### C MP #### [facility] [address] [address] [address] Ekta Funk EGFR-AF [place] 36 mL/min/1.73m2 Critically low >=60 [facility] Comment on above: Performed By: #### C MP #### [facility] [address] [address] [address] Ekta Funk EGFR-NON AF [place] 29 mL/min/1.73m2 Critically low >=60 [facility] Comment on above: Performed By: #### C MP #### [facility] [address] [address] [address] Ekta Funk Globulin (S) [Mass/Vol] 3.6 g/dL Normal [facility] Comment on above: Performed By: #### C MP #### [facility] [address] [address] [address] Ekta Funk Glucose [Mass/Vol] 103 mg/dL Normal 74-106 [facility] Comment on above: Performed By: #### C MP #### [facility] [address] [address] [address] Ekta Funk Potassium [Moles/Vol] 4.6 mmol/L Normal 3.5-5.1 [facility] Comment on above: Performed By: #### C MP #### [facility] [address] [address] [address] Ekta Funk Protein [Mass/Vol] 5.8 g/dL Critically low 6.4-8.2 [facility] Comment on above: Performed By: #### C MP #### [facility] [address] [address] [address] Ekta Funk Sodium [Moles/Vol] 137 mmol/L Normal 136-145 [facility] Comment on above: Performed By: #### C MP #### [facility] [address] [place] [address] Dr. Ekta Funk Urea nitrogen [Mass/Vol] 26.0 mg/dL Critically high 7.0-18.0 [facility] Comment on above: Performed By: #### C MP #### [facility] [address] [place] [address] Dr. Ekta Funk Urea nitrogen/Creatinine [Mass ratio] 15.3 mg/mg Normal [facility] Comment on above: Performed By: #### C MP #### [facility] [address] [place] [address] Dr. Ekta Funk CBC AUTO DIFFon 11-25-2022 BASO # 0.1 103/ul Normal 0.0-0.1 [facility] Comment on above: Performed By: #### C BC #### [facility] [address] [place] [address] Dr. Ekta Funk Basophils/100 WBC (Bld) 0.7 % Normal 0.2-2.0 [facility] Comment on above: Performed By: #### C BC #### [facility] [address] [place] [address] Dr. Ekta Funk EO # 0.3 103/ul Normal 0.0-0.7 [facility] Comment on above: Performed By: #### C BC #### [facility] [address] [address] [address] Ekta Funk Eosinophils/100 WBC (Bld) 3.4 % Normal 0.9-7.0 [facility] Comment on above: Performed By: #### C BC #### [facility] [address] [address] [address] Ekta Funk Erythrocyte distribution width (RBC) [Ratio] 13.6 % Normal 11.0-15.0 [facility] Comment on above: Performed By: #### C BC #### [facility] [address] [place] [address] Dr. Ekta Funk Hematocrit (Bld) [Volume fraction] 32.1 % Critically low 36.0-48.0 [facility] Comment on above: Performed By: #### C BC #### [facility] [address] [place] [address] Dr. Ekta Funk Hemoglobin (Bld) [Mass/Vol] 10.3 g/dL Critically low 12.0-16.0 [facility] Comment on above: Performed By: #### C BC #### [facility] [address] [place] [address] Dr. Ekta Funk IG # 0.08 10e3/ul Critically high 0.00-0.03 [facility] Comment on above: Performed By: #### C BC #### [facility] [address] [place] [address] Dr. Ekta Funk IG % 0.9 % Critically high 0.0-0.5 [facility] Comment on above: Performed By: #### C BC #### [facility] [address] [place] [address] Dr. Ekta Funk LYMPH # 0.9 103/ul Critically low 1.2-3.8 [facility] Comment on above: Performed By: #### C BC #### [facility] [address] [place] [address] Dr. Ekta Funk Lymphocytes/100 WBC (Bld) 10.7 % Critically low 20.5-60.0 [facility] Comment on above: Performed By: #### C BC #### [facility] [address] [place] [address] Dr. Ekta Funk MANUAL DIFF REQ NO Normal [facility] Comment on above: Performed By: #### C BC #### [facility] [address] [place] [address] Dr. Ekta Funk MCH (RBC) [Entitic mass] 32.2 pg Normal 26.7-34.0 [facility] Comment on above: Performed By: #### C BC #### [facility] [address] [place] [address] Dr. Ekta Funk MCHC (RBC) [Mass/Vol] 32.1 g/dL Normal 29.9-35.2 [facility] Comment on above: Performed By: #### C BC #### [facility] [address] [place] [address] Dr. Ekta Funk MCV (RBC) [Entitic vol] 100.3 fL Critically high 81.0-99.0 [facility] Comment on above: Performed By: #### C BC #### [facility] [address] [place] [address] Dr. Ekta Funk MONO # 0.9 103/ul Critically high 0.3-0.8 [facility] Comment on above: Performed By: #### C BC #### [facility] [address] [place] [address] Dr. Ekta Funk Monocytes/100 WBC (Bld) 9.9 % Normal 1.7-12.0 [facility] Comment on above: Performed By: #### C BC #### [facility] [address] [place] [address] Dr. Ekta Funk NEUT # 6.4 103/ul Normal 1.4-6.5 [facility] Comment on above: Performed By: #### C BC #### [facility] [address] [place] [address] Dr. Ekta Funk Neutrophils/100 WBC (Bld) 74.4 % Normal 43.0-75.0 [facility] Comment on above: Performed By: #### C BC #### [facility] [address] [place] [address] Dr. Ekta Funk Platelet mean volume (Bld) [Entitic vol] 9.5 fL Normal 9.5-13.5 [facility] Comment on above: Performed By: #### C BC #### [facility] [address] [place] [address] Dr. Ekta Funk PLT 267 103/ul Normal 150-450 [facility] Comment on above: Performed By: #### C BC #### [facility] [address] [place] [address] Dr. Ekta Funk RBC 3.20 106/ul Critically low 4.20-5.40 [facility] Comment on above: Performed By: #### C BC #### [facility] [address] [place] [address] Dr. Ekta Funk WBC 8.6 103/ul Normal 4.0-11.0 [facility] Comment on above: Performed By: #### C BC #### [facility] [address] [place] [address] Dr. Ekta Funk BASO # 0.1 103/ul Normal 0.0-0.1 [facility] Comment on above: Performed By: #### C MP #### [facility] [address] [place] [address] Dr. Ekta Funk Basophils/100 WBC (Bld) 0.7 % Normal 0.2-2.0 [facility] Comment on above: Performed By: #### C MP #### [facility] [address] [place] [address] Dr. Ekta Funk EO # 0.3 103/ul Normal 0.0-0.7 [facility] Comment on above: Performed By: #### C MP #### [facility] [address] [place] [address] Dr. Ekta Funk Eosinophils/100 WBC (Bld) 3.9 % Normal 0.9-7.0 [facility] Comment on above: Performed By: #### C MP #### [facility] [address] [place] [address] Dr. Ekta Funk Erythrocyte distribution width (RBC) [Ratio] 13.2 % Normal 11.0-15.0 [facility] Comment on above: Performed By: #### C MP #### [facility] [address] [place] [address] Dr. Ekta Funk Hematocrit (Bld) [Volume fraction] 28.0 % Critically low 36.0-48.0 [facility] Comment on above: Performed By: #### C MP #### [facility] [address] [place] [address] Dr. Ekta Funk Hemoglobin (Bld) [Mass/Vol] 9.3 g/dL Critically low 12.0-16.0 [facility] Comment on above: Performed By: #### C MP #### [facility] [address] [place] [address] Dr. Ekta Funk IG # 0.08 10e3/ul Critically high 0.00-0.03 [facility] Comment on above: Performed By: #### C MP #### [facility] [address] [place] [address] Dr. Ekta Funk IG % 1.1 % Critically high 0.0-0.5 [facility] Comment on above: Performed By: #### C MP #### [facility] [address] [place] [address] Dr. Ekta Funk LYMPH # 0.9 103/ul Critically low 1.2-3.8 [facility] Comment on above: Performed By: #### C MP #### [facility] [address] [place] [address] Dr. Ekta Funk Lymphocytes/100 WBC (Bld) 12.1 % Critically low 20.5-60.0 [facility] Comment on above: Performed By: #### C MP #### [facility] [address] [place] [address] Dr. Ekta Funk MANUAL DIFF REQ NO Normal [facility] Comment on above: Performed By: #### C MP #### [facility] [address] [place] [address] Dr. Ekta Funk MCH (RBC) [Entitic mass] 32.0 pg Normal 26.7-34.0 [facility] Comment on above: Performed By: #### C MP #### [facility] [address] [place] [address] Dr. Ekta Funk MCHC (RBC) [Mass/Vol] 33.2 g/dL Normal 29.9-35.2 [facility] Comment on above: Performed By: #### C MP #### [facility] [address] [place] [address] Dr. Ekta Funk MCV (RBC) [Entitic vol] 96.2 fL Normal 81.0-99.0 [facility] Comment on above: Performed By: #### C MP #### [facility] [address] [place] [address] Dr. Ekta Funk MONO # 0.7 103/ul Normal 0.3-0.8 [facility] Comment on above: Performed By: #### C MP #### [facility] [address] [place] [address] Dr. Ekta Funk Monocytes/100 WBC (Bld) 9.8 % Normal 1.7-12.0 [facility] Comment on above: Performed By: #### C MP #### [facility] [address] [place] [address] Dr. Ekta Funk NEUT # 5.2 103/ul Normal 1.4-6.5 [facility] Comment on above: Performed By: #### C MP #### [facility] [address] [place] [address] Dr. Ekta Funk Neutrophils/100 WBC (Bld) 72.4 % Normal 43.0-75.0 [facility] Comment on above: Performed By: #### C MP #### [facility] [address] [place] [address] Dr. Ekta Funk Platelet mean volume (Bld) [Entitic vol] 9.4 fL Critically low 9.5-13.5 [facility] Comment on above: Performed By: #### C MP #### [facility] [address] [place] [address] Dr. Ekta Funk PLT 250 103/ul Normal 150-450 [facility] Comment on above: Performed By: #### C MP #### [facility] [address] [place] [address] Dr. Ekta Funk RBC 2.91 106/ul Critically low 4.20-5.40 [facility] Comment on above: Performed By: #### C MP #### [facility] [address] [address] [address] Ekta Funk WBC 7.2 103/ul Normal 4.0-11.0 [facility] Comment on above: Performed By: #### C MP #### [facility] [address] [place] [address] Dr. Ekta Funk PROF 14(COMP METB)on 023 Albumin [Mass/Vol] 2.1 g/dL Critically low 3.4-5.0 [place] Comment on above: Performed By: #### C MP #### [facility] [address] [place] [address] Dr. Ekta Funk Albumin/Globulin [Mass ratio] 0.6 {ratio} Normal [facility] Comment on above: Performed By: #### C MP #### [facility] [address] [place] [address] Dr. Ekta Funk ALP [Catalytic activity/Vol] 68 U/L Normal 46-116 [facility] Comment on above: Performed By: #### C MP #### [facility] [address] [place] [address] Dr. Ekta Funk ALT [Catalytic activity/Vol] 14 U/L Normal 14-59 [facility] Comment on above: Performed By: #### C MP #### [facility] [address] [address] [address] Ekta Funk Anion gap [Moles/Vol] 12.9 mmol/L Normal [place] Comment on above: Performed By: #### C MP #### [facility] [address] [place] [address] Dr. Ekta Funk AST [Catalytic activity/Vol] 14 U/L Critically low 15-37 [facility] Comment on above: Performed By: #### C MP #### [facility] [address] [address] [address] Ekta Funk Bilirubin [Mass/Vol] 0.3 mg/dL Normal 0.2-1.0 [facility] Comment on above: Performed By: #### C MP #### [facility] [address] [address] [address] Ekta Funk Calcium [Mass/Vol] 8.3 mg/dL Critically low 8.5-10.1 [facility] Comment on above: Performed By: #### C MP #### [facility] [address] [address] [address] Ekta Funk Chloride [Moles/Vol] 109 mmol/L Critically high 98-107 [facility] Comment on above: Performed By: #### C MP #### [facility] [address] [address] [address] Ekta Funk CO2 [Moles/Vol] 19.3 mmol/L Critically low 21.0-32.0 [facility] Comment on above: Performed By: #### C MP #### [facility] [address] [address] [address] Ekta Funk Creatinine [Mass/Vol] 1.54 mg/dL Critically high 0.55-1.02 [facility] Comment on above: Performed By: #### C MP #### [facility] [address] [address] [address] Ekta Funk EGFR-AF [place] 40 mL/min/1.73m2 Critically low >=60 [facility] Comment on above: Performed By: #### C MP #### [facility] [address] [address] [address] Ekta Funk EGFR-NON AF [place] 33 mL/min/1.73m2 Critically low >=60 [facility] Comment on above: Performed By: #### C MP #### [facility] [address] [address] [address] Ekta Funk Globulin (S) [Mass/Vol] 3.7 g/dL Normal [facility] Comment on above: Performed By: #### C MP #### [facility] [address] [address] [address] Ekta Funk Glucose [Mass/Vol] 117 mg/dL Critically high 74-106 T [facility] Comment on above: Performed By: #### C MP #### [facility] [address] [address] [address] Ekta Funk Potassium [Moles/Vol] 4.2 mmol/L Normal 3.5-5.1 [facility] Comment on above: Performed By: #### C MP #### [facility] [address] [address] [address] Ekta Funk Protein [Mass/Vol] 5.8 g/dL Critically low 6.4-8.2 [facility] Comment on above: Performed By: #### C MP #### [facility] [address] [address] [address] Ekta Funk Sodium [Moles/Vol] 137 mmol/L Normal 136-145 [facility] Comment on above: Performed By: #### C MP #### [facility] [address] [address] [address] Ekta Funk Urea nitrogen [Mass/Vol] 27.0 mg/dL Critically high 7.0-18.0 [facility] Comment on above: Performed By: #### C MP #### [facility] [address] [address] [address] Ekta Funk Urea nitrogen/Creatinine [Mass ratio] 17.5 mg/mg Normal [facility] Comment on above: Performed By: #### C MP #### [facility] [address] [address] [address] Ekta Funk AMMONIAon 11-24-2022 Ammonia (P) [Moles/Vol] 13 umol/L Normal 11-32 [facility] Comment on above: Performed By: #### C VDTBH #### [facility] [address] [address] [address] Ekta Funk CBC AUTO DIFFon 11-24-2022 BASO # 0.0 103/ul Normal 0.0-0.1 [facility] Comment on above: Performed By: #### C MP #### [facility] [address] [place] [address] Dr. Ekta Funk Basophils/100 WBC (Bld) 0.4 % Normal 0.2-2.0 [facility] Comment on above: Performed By: #### C MP #### [facility] [address] [place] [address] Dr. Ekta Funk EO # 0.4 103/ul Normal 0.0-0.7 [facility] Comment on above: Performed By: #### C MP #### [facility] [address] [place] [address] Dr. Ekta Funk Eosinophils/100 WBC (Bld) 3.8 % Normal 0.9-7.0 [facility] Comment on above: Performed By: #### C MP #### [facility] [address] [place] [address] Dr. Ekta Funk Erythrocyte distribution width (RBC) [Ratio] 13.2 % Normal 11.0-15.0 [facility] Comment on above: Performed By: #### C MP #### [facility] [address] [place] [address] Dr. Ekta Funk Hematocrit (Bld) [Volume fraction] 34.0 % Critically low 36.0-48.0 [facility] Comment on above: Performed By: #### C MP #### [facility] [address] [place] [address] Dr. Ekta Funk Hemoglobin (Bld) [Mass/Vol] 11.5 g/dL Critically low 12.0-16.0 [facility] Comment on above: Performed By: #### C MP #### [facility] [address] [place] [address] Dr. Ekta Funk IG # 0.11 10e3/ul Critically high 0.00-0.03 [facility] Comment on above: Performed By: #### C MP #### [facility] [address] [place] [address] Dr. Ekta Funk IG % 1.2 % Critically high 0.0-0.5 [facility] Comment on above: Performed By: #### C MP #### [facility] [address] [place] [address] Dr. Ekta Funk LYMPH # 1.4 103/ul Normal 1.2-3.8 [facility] Comment on above: Performed By: #### C MP #### [facility] [address] [place] [address] Dr. Ekta Funk Lymphocytes/100 WBC (Bld) 14.9 % Critically low 20.5-60.0 [facility] Comment on above: Performed By: #### C MP #### [facility] [address] [place] [address] Dr. Ekta Funk MANUAL DIFF REQ NO Normal [facility] Comment on above: Performed By: #### C MP #### [facility] [address] [place] [address] Dr. Ekta Funk MCH (RBC) [Entitic mass] 32.5 pg Normal 26.7-34.0 [facility] Comment on above: Performed By: #### C MP #### [facility] [address] [place] [address] Dr. Ekta Funk MCHC (RBC) [Mass/Vol] 33.8 g/dL Normal 29.9-35.2 [facility] Comment on above: Performed By: #### C MP #### [facility] [address] [place] [address] Dr. Ekta Funk MCV (RBC) [Entitic vol] 96.0 fL Normal 81.0-99.0 [facility] Comment on above: Performed By: #### C MP #### [facility] [address] [place] [address] Dr. Ekta Funk MONO # 0.9 103/ul Critically high 0.3-0.8 [facility] Comment on above: Performed By: #### C MP #### [facility] [address] [place] [address] Dr. Ekta Funk Monocytes/100 WBC (Bld) 9.7 % Normal 1.7-12.0 [facility] Comment on above: Performed By: #### C MP #### [facility] [address] [address] [address] Ekta Funk NEUT # 6.4 103/ul Normal 1.4-6.5 [facility] Comment on above: Performed By: #### C MP #### [facility] [address] [address] [address] Ekta Funk Neutrophils/100 WBC (Bld) 70.0 % Normal 43.0-75.0 [facility] Comment on above: Performed By: #### C MP #### [facility] [address] [address] [address] Ekta Funk Platelet mean volume (Bld) [Entitic vol] 9.3 fL Critically low 9.5-13.5 [facility] Comment on above: Performed By: #### C MP #### [facility] [address] [address] [address] Ekta Funk PLT 308 103/ul Normal 150-450 [facility] Comment on above: Performed By: #### C MP #### [facility] [address] [address] [address] Ekta Funk RBC 3.54 106/ul Critically low 4.20-5.40 [facility] Comment on above: Performed By: #### C MP #### [facility] [address] [address] [address] Ekta Funk WBC 9.1 103/ul Normal 4.0-11.0 [facility] Comment on above: Performed By: #### C MP #### [facility] [address] [address] [address] Ekta Funk CPKon 11-24-2022 CK [Catalytic activity/Vol] 21 U/L Critically low 26-192 [facility] Comment on above: Performed By: #### B 12FOL, VITAD, IRON #### [facility] [address] [address] [address] STROKE HEAD WOon [...] PARADA Date: 2022-11-24 11:09 Normal [facility] CTA HEAD WO W CONon 11-25-19 23 CTA HEAD WO W CON EXAMINATION: CTA HEAD WO W CON, CTA NECK WO W [...] DANIEL MARIE Date: 2022-11-24 12:41 Normal [facility] CULTURE URINEon 11-24-2022 CULTURE URINE Culture Observations: NO GROWTH. Normal [facility] Comment on above: Performed By: #### I NSULIN #### [facility] [address] [address] [address] Ekta Funk [facility]08 SARS-CoV-2 (COVID-19) RNA GANESH+probe Ql (Unsp spec) Not detected Normal NOT DETECTED [facility] Comment on above: Result Comment: When [...] for this test is supported by the [place] of Health and Human Service's declaration that [...] used). Performed By: #### C VDTB #### [facility] [address] [place] [address] Dr. Ekta Funk ER URINE PROFILEon 3 Bilirubin Ql (U) Negative Normal NEGATIVE [facility] Comment on above: Performed By: #### C BC #### [facility] [address] [place] [address] Dr. Ekta Funk Clarity (U) CLEAR Normal CLEAR [facility] Comment on above: Performed By: #### C BC #### [facility] [address] [place] [address] Dr. Ekta Funk Color (U) LT. YELLOW Normal YELLOW [facility] Comment on above: Performed By: #### C BC #### [facility] [address] [place] [address] Dr. Ekta COLÓN A micrscopic examination will be performed if indicated. Normal [facility] Comment on above: Performed By: #### C BC #### [facility] [address] [place] [address] Dr. Ekta Funk Glucose Ql (U) Negative Normal NEGATIVE [facility] Comment on above: Performed By: #### C BC #### [facility] [address] [place] [address] Dr. Ekta Funk Hemoglobin Ql (U) Negative Normal NEGATIVE [facility] Comment on above: Performed By: #### C BC #### [facility] [address] [place] [address] Dr. Ekta Funk Ketones Ql (U) Negative Normal NEGATIVE [facility] Comment on above: Performed By: #### C BC #### [facility] [address] [place] [address] Dr. Ekta Funk LEUKOCYTES Negative Normal NEGATIVE [facility] Comment on above: Performed By: #### C BC #### [facility] [address] [address] [address] Ekta Funk Nitrite Ql (U) Negative Normal NEGATIVE [facility] Comment on above: Performed By: #### C BC #### [facility] [address] [address] [address] Ekta Funk pH (U) 5.5 [pH] Normal 5-9 [facility] Comment on above: Performed By: #### C BC #### [facility] [address] [place] [address] Dr. Ekta Funk SPEC GRAVITY 1.020 Normal 1.005-<=1.025 [facility] Comment on above: Performed By: #### C BC #### [facility] [address] [place] [address] Dr. Ekta Funk UA PROTEIN Negative Normal NEGATIVE/ TRACE [facility] Comment on above: Performed By: #### C BC #### [facility] [address] [address] [address] Ekta Funk UR MICRO IND NOT INDICATED Normal [facility] Comment on above: Performed By: #### C BC #### [facility] [address] [place] [address] Dr. Ekta Funk Urobilinogen Qn (U) 0.2 {Ivan'U}/dL Normal 0.2 - 1. 0 [facility] Comment on above: Performed By: #### C BC #### [facility] [address] [place] [address] Dr. Ekta Funk GLYCOHEMOGLOBIN A1Con 2022 ADA RECOMMENDATION SEE BELOW Normal [facility] Comment on above: Result Comment: ADA RECOMMENDED LIMIT 4.0 - 6.0 ADA THERAPEUTIC TARGET < 7.0 ACTION SUGGESTED > 7.0 Performed By: #### B 12FOL, VITAD, IRON #### [facility] [address] [place] [address] Dr. Ekta Funk Glucose [Mass/Vol] 143 mg/dL Normal [facility] Comment on above: Performed By: #### B 12FOL, VITAD, IRON #### [facility] [address] [place] [address] Dr. Ekta Funk HbA1c (Bld) [Mass fraction] 6.6 % Critically high 4.5-6.2 [facility] Comment on above: Performed By: #### B 12FOL, VITAD, IRON #### [facility] [address] [place] [address] Dr. Ekta Funk LACTATE/LACTIC ACIDon 2022 Lactate [Moles/Vol] 1.6 mmol/L Normal 0.4-2.0 [facility] Comment on above: Performed By: #### C MP #### [facility] [address] [place] [address] Dr. Ekta Funk Lactate [Moles/Vol] 2.1 mmol/L Critically high 0.4-2.0 [facility] Comment on above: Performed By: #### B 12FOL, VITAD, IRON #### [facility] [address] [place] [address] Dr. Ekta Funk LIPASEon 11-24-2022 Lipase [Catalytic activity/Vol] 165.0 U/L Normal 73.0-393.0 [facility] Comment on above: Performed By: #### B 12FOL, VITAD, IRON #### [facility] [address] [place] [address] Dr. Ekta Funk LIPID PROFILEon 11-24-2022 CHOL-HDL RATIO NORM SEE BELOW Normal [facility] Comment on above: Result Comment: 3.3 - 4.4 LOW RISK 4.4 - 7.1 AVERAGE RISK 7.1 - 11.0 MODERATE RISK >11.0 HIGH RISK Performed By: #### B 12FOL, VITAD, IRON #### [facility] [address] [place] [address] Dr. Ekta Funk Cholesterol [Mass/Vol] 248 mg/dL Critically high <=200 [facility] Comment on above: Performed By: #### B 12FOL, VITAD, IRON #### [facility] [address] [address] [address] Ekta Funk Cholesterol in HDL [Mass/Vol] 58 mg/dL Normal 40-60 [facility] Comment on above: Performed By: #### B 12FOL, VITAD, IRON #### [facility] [address] [place] [address] Dr. Ekta Funk Cholesterol in LDL [Mass/Vol] 165.6 mg/dL Normal [facility] Comment on above: Performed By: #### B 12FOL, VITAD, IRON #### [facility] [address] [place] [address] Dr. Ekta Funk Cholesterol.total/Chol esterol in HDL [Mass ratio] 4.3 {ratio} Normal [facility] Comment on above: Performed By: #### B 12FOL, VITAD, IRON #### [facility] [address] [place] [address] Dr. Ekta Funk HDL NORMAL > or = 60 mg/dl - LOW CARDIOVASCULAR RISK <40 mg/dl - HIGH CARDIOVASCULAR RISK Normal [facility] Comment on above: Performed By: #### B 12FOL, VITAD, IRON #### [facility] [address] [address] [address] Ekta Funk LDL CALC NORMAL SEE BELOW Normal [facility] Comment on above: Result Comment: <100 mg/dl OPTIMAL 100 - 129 mg/dl NEAR OR ABOVE OPTIMAL 130 - 159 mg/dl BORDERLINE HIGH 160 - 189 mg/dl HIGH >190 mg/dl VERY HIGH Performed By: #### B 12FOL, VITAD, IRON #### [facility] [address] [place] [address] Dr. Ekta Funk Triglyceride [Mass/Vol] 122 mg/dL Normal <=150 [facility] Comment on above: Performed By: #### B 12FOL, VITAD, IRON #### [facility] [address] [place] [address] Dr. Ekta Funk VLDL CALC 24.4 mg/dL Normal [facility] Comment on above: Performed By: #### B 12FOL, VITAD, IRON #### [facility] [address] [place] [address] Dr. Ekta Funk MRI BRAIN WO CONon [...] foci suggesting sequelae of small vessel ischemic change/leukoaraiosis . 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 Ekta Funk Albumin/Globulin [Mass ratio] 0.6 {ratio} Normal [facility] Comment on above: Performed By: #### B 12FOL, VITAD, IRON #### [facility] [address] [address] [address] Ekta Funk ALP [Catalytic activity/Vol] 85 U/L Normal 46-116 [facility] Comment on above: Performed By: #### B 12FOL, VITAD, IRON #### [facility] [address] [address] [address] Ekta Funk ALT [Catalytic activity/Vol] 18 U/L Normal 14-59 [facility] Comment on above: Performed By: #### B 12FOL, VITAD, IRON #### [facility] [address] [address] [address] Ekta Funk Anion gap [Moles/Vol] 18.9 mmol/L Normal Th [facility] Comment on above: Performed By: #### B 12FOL, VITAD, IRON #### [facility] [address] [address] [address] Ekta Funk AST [Catalytic activity/Vol] 16 U/L Normal 15-37 [facility] Comment on above: Performed By: #### B 12FOL, VITAD, IRON #### [facility] [address] [place] [address] Dr. Ekta Funk Bilirubin [Mass/Vol] 0.4 mg/dL Normal 0.2-1.0 [facility] Comment on above: Performed By: #### B 12FOL, VITAD, IRON #### [facility] [address] [address] [address] Ekta Funk Calcium [Mass/Vol] 9.5 mg/dL Normal 8.5-10.1 [facility] Comment on above: Performed By: #### B 12FOL, VITAD, IRON #### [facility] [address] [address] [address] Ekta Funk Chloride [Moles/Vol] 108 mmol/L Critically high 98-107 [facility] Comment on above: Performed By: #### B 12FOL, VITAD, IRON #### [facility] [address] [address] [address] Ekta Funk CO2 [Moles/Vol] 21.1 mmol/L Normal 21.0-32.0 [facility] Comment on above: Performed By: #### B 12FOL, VITAD, IRON #### [facility] [address] [address] [address] Ekta Funk Creatinine [Mass/Vol] 2.08 mg/dL Critically high 0.55-1.02 [facility] Comment on above: Performed By: #### B 12FOL, VITAD, IRON #### [facility] [address] [address] [address] Ekta Funk EGFR-AF [place] 28 mL/min/1.73m2 Critically low >=60 [facility] Comment on above: Performed By: #### B 12FOL, VITAD, IRON #### [facility] [address] [address] [address] Ekta Funk EGFR-NON AF [place] 23 mL/min/1.73m2 Critically low >=60 [facility] Comment on above: Performed By: #### B 12FOL, VITAD, IRON #### [facility] [address] [place] [address] Dr. Ekta Funk Globulin (S) [Mass/Vol] 4.6 g/dL Normal [facility] Comment on above: Performed By: #### B 12FOL, VITAD, IRON #### [facility] [address] [place] [address] Dr. Ekta Funk Glucose [Mass/Vol] 119 mg/dL Critically high 74-106 [facility] Comment on above: Performed By: #### B 12FOL, VITAD, IRON #### [facility] [address] [place] [address] Dr. Ekta Funk Potassium [Moles/Vol] 5.0 mmol/L Normal 3.5-5.1 [facility] Comment on above: Performed By: #### B 12FOL, VITAD, IRON #### [facility] [address] [place] [address] Dr. Ekta Funk Protein [Mass/Vol] 7.3 g/dL Normal 6.4-8.2 [facility] Comment on above: Performed By: #### B 12FOL, VITAD, IRON #### [facility] [address] [place] [address] Dr. Ekta Funk Sodium [Moles/Vol] 143 mmol/L Normal 136-145 [facility] Comment on above: Performed By: #### B 12FOL, VITAD, IRON #### [facility] [address] [address] [address] Ekta Funk Urea nitrogen [Mass/Vol] 37.0 mg/dL Critically high 7.0-18.0 [facility] Comment on above: Performed By: #### B 12FOL, VITAD, IRON #### [facility] [address] [place] [address] Dr. Ekta Funk Urea nitrogen/Creatinine [Mass ratio] 17.8 mg/mg Normal [facility] Comment on above: Performed By: #### B 12FOL, VITAD, IRON #### [facility] [address] [place] [address] Dr. Ekta Funk TROPONIN, HIGH SENSITIVITYon 11-24-2022 HSTROP 14.1 pg/mL Normal 4.0-51.3 [facility] Comment on above: Result Comment: CUT- OFF POINTS HAVE BEEN ESTABLISHED BASED ON THE FOURTH UNIVERSAL DEFINITIONS OF MYOCARDIAL INFARCTION. THE UPPER REFERENCE LIMIT (URL) OF TROPONIN, DEFINED THE 99TH PERCENTILE OF cTnI DISTRIBUTION IN A REFERENCE POPULATION, HAS BEEN CONFIRMED THE DECISION THRESHOLD FOR MA DIAGNOSIS. Performed By: #### B 12FOL VITAD, IRON #### [facility] [address] [place] [address] Dr. Ekta Funk TSHon 11-24-2022 TSH 1.184 uIU/mL Normal 0.358-3.740 [facility] Comment on above: Performed By: #### B 12FOL VITAD, IRON #### [facility] [address] [place] [address] Dr. Ekta Funk XR CHEST 1 Von [...] NATALIIA TATE Date: 2022-11-24 11:00 Normal [facility] BNPon 11-13-2022 Natriuretic peptide B (Bld) [Mass/Vol] 565.0 pg/mL Normal <=900.0 [facility] Comment on above: Performed By: #### I NSULIN #### [facility] [address] [address] [address] Ekta Funk CBC AUTO DIFFon 11-13-2022 BASO # 0.1 103/ul Normal 0.0-0.1 [facility] Comment on above: Performed By: #### C BC #### [facility] [address] [place] [address] Dr. Ekta Funk Basophils/100 WBC (Bld) 0.6 % Normal 0.2-2.0 [facility] Comment on above: Performed By: #### C BC #### [facility] [address] [place] [address] Dr. Ekta Funk EO # 0.4 103/ul Normal 0.0-0.7 [facility] Comment on above: Performed By: #### C BC #### [facility] [address] [place] [address] Dr. Ekta Funk Eosinophils/100 WBC (Bld) 3.7 % Normal 0.9-7.0 [facility] Comment on above: Performed By: #### C BC #### [facility] [address] [place] [address] Dr. Ekta Funk Erythrocyte distribution width (RBC) [Ratio] 13.2 % Normal 11.0-15.0 [facility] Comment on above: Performed By: #### C BC #### [facility] [address] [place] [address] Dr. Ekta Funk Hematocrit (Bld) [Volume fraction] 36.7 % Normal 36.0-48.0 [facility] Comment on above: Performed By: #### C BC #### [facility] [address] [address] [address] Ekta Funk Hemoglobin (Bld) [Mass/Vol] 12.4 g/dL Normal 12.0-16.0 [facility] Comment on above: Performed By: #### C BC #### [facility] [address] [place] [address] Dr. Ekta Funk IG # 0.10 10e3/ul Critically high 0.00-0.03 [facility] Comment on above: Performed By: #### C BC #### [facility] [address] [place] [address] Dr. Ekta Funk IG % 1.0 % Critically high 0.0-0.5 [facility] Comment on above: Performed By: #### C BC #### [facility] [address] [place] [address] Dr. Ekta Funk LYMPH # 1.5 103/ul Normal 1.2-3.8 [facility] Comment on above: Performed By: #### C BC #### [facility] [address] [place] [address] Dr. Ekta Funk Lymphocytes/100 WBC (Bld) 14.9 % Critically low 20.5-60.0 [facility] Comment on above: Performed By: #### C BC #### [facility] [address] [place] [address] Dr. Ekta Funk MANUAL DIFF REQ NO Normal [facility] Comment on above: Performed By: #### C BC #### [facility] [address] [place] [address] Dr. Ekta Funk MCH (RBC) [Entitic mass] 32.8 pg Normal 26.7-34.0 [facility] Comment on above: Performed By: #### C BC #### [facility] [address] [place] [address] Dr. Ekta Funk MCHC (RBC) [Mass/Vol] 33.8 g/dL Normal 29.9-35.2 [facility] Comment on above: Performed By: #### C BC #### [facility] [address] [place] [address] Dr. Ekta Funk MCV (RBC) [Entitic vol] 97.1 fL Normal 81.0-99.0 [facility] Comment on above: Performed By: #### C BC #### [facility] [address] [place] [address] Dr. Ekta Funk MONO # 0.8 103/ul Normal 0.3-0.8 [facility] Comment on above: Performed By: #### C BC #### [facility] [address] [place] [address] Dr. Ekta Funk Monocytes/100 WBC (Bld) 7.7 % Normal 1.7-12.0 [facility] Comment on above: Performed By: #### C BC #### [facility] [address] [place] [address] Dr. Ekta Funk NEUT # 7.3 103/ul Critically high 1.4-6.5 [facility] Comment on above: Performed By: #### C BC #### [facility] [address] [place] [address] Dr. Ekta Funk Neutrophils/100 WBC (Bld) 72.1 % Normal 43.0-75.0 [facility] Comment on above: Performed By: #### C BC #### [facility] [address] [place] [address] Dr. Ekta Funk Platelet mean volume (Bld) [Entitic vol] 9.4 fL Critically low 9.5-13.5 [facility] Comment on above: Performed By: #### C BC #### [facility] [address] [place] [address] Dr. Ekta Funk PLT 251 103/ul Normal 150-450 [facility] Comment on above: Performed By: #### C BC #### [facility] [address] [place] [address] Dr. Ekta Funk RBC 3.78 106/ul Critically low 4.20-5.40 [facility] Comment on above: Performed By: #### C BC #### [facility] [address] [place] [address] Dr. Ekta Funk WBC 10.1 103/ul Normal 4.0-11.0 [facility] Comment on above: Performed By: #### C BC #### [facility] [address] [place] [address] Dr. Ekta Funk FREE THYROXINE INDEX T7on FTI 2.73 Normal 1.30-4.50 [facility] Comment on above: Performed By: #### I NSULIN #### [facility] [address] [place] [address] Dr. Ekta Funk T3U 35.0 % Normal 30.0-39.0 [facility] Comment on above: Performed By: #### I NSULIN #### [facility] [address] [place] [address] Dr. Ekta Funk T4 [Mass/Vol] 7.80 ug/dL Normal 4.80-13.90 [facility] Comment on above: Performed By: #### I NSULIN #### [facility] [address] [place] [address] Dr. Ekta Funk GLYCOHEMOGLOBIN A1Con 2022 ADA RECOMMENDATION SEE BELOW Normal [facility] Comment on above: Result Comment: ADA RECOMMENDED LIMIT 4.0 - 6.0 ADA THERAPEUTIC TARGET < 7.0 ACTION SUGGESTED > 7.0 Performed By: #### B 12FOL, VITAD, IRON #### [facility] [address] [place] [address] Dr. Ekta Funk Glucose [Mass/Vol] 134 mg/dL Normal [facility] Comment on above: Performed By: #### B 12FOL, VITAD, IRON #### [facility] [address] [place] [address] Dr. Ekta Funk HbA1c (Bld) [Mass fraction] 6.3 % Critically high 4.5-6.2 [facility] Comment on above: Performed By: #### B 12FOL, VITAD, IRON #### [facility] [address] [place] [address] Dr. Ekta Funk IRONon 11-13-2022 Iron [Mass/Vol] 55.0 ug/dL Normal 50.0-170.0 [facility] Comment on above: Performed By: #### B 12FOL, VITAD, IRON #### [facility] [address] [place], [place] [address] Dr. Ekta Funk LIPID PROFILEon 11-13-2022 CHOL-HDL RATIO NORM SEE BELOW Normal [facility] Comment on above: Result Comment: 3.3 - 4.4 LOW RISK 4.4 - 7.1 AVERAGE RISK 7.1 - 11.0 MODERATE RISK >11.0 HIGH RISK Performed By: #### I NSULIN #### [facility] [address] [address] [address] Ekta Funk Cholesterol [Mass/Vol] 294 mg/dL Critically high <=200 [facility] Comment on above: Performed By: #### I NSULIN #### [facility] [address] [address] [address] Ekta Funk Cholesterol in HDL [Mass/Vol] 64 mg/dL Critically high 40-60 [facility] Comment on above: Performed By: #### I NSULIN #### [facility] [address] [address] [address] Ekta Funk Cholesterol in LDL [Mass/Vol] 197.2 mg/dL Normal [facility] Comment on above: Performed By: #### I NSULIN #### [facility] [id number] Ekta Funk Cholesterol.total/Chol esterol in HDL [Mass ratio] 4.6 {ratio} Normal [facility] Comment on above: Performed By: #### I NSULIN #### [facility] [id number] Ekta Funk HDL NORMAL > or = 60 mg/dl - LOW CARDIOVASCULAR RISK <40 mg/dl - HIGH CARDIOVASCULAR RISK Normal [facility] Comment on above: Performed By: #### I NSULIN #### [facility] [id number] Ekta Funk LDL CALC NORMAL SEE BELOW Normal [facility] Comment on above: Result Comment: <100 mg/dl OPTIMAL 100 - 129 mg/dl NEAR OR ABOVE OPTIMAL 130 - 159 mg/dl BORDERLINE HIGH 160 - 189 mg/dl HIGH >190 mg/dl VERY HIGH Performed By: #### I NSULIN #### [facility] [address] [place] [address] Dr. Ekta Funk Triglyceride [Mass/Vol] 164 mg/dL Critically high <=150 [facility] Comment on above: Performed By: #### I NSULIN #### [facility] [address] [place] [address] Dr. Ekta Funk VLDL CALC 32.8 mg/dL Normal [facility] Comment on above: Performed By: #### I NSULIN #### [facility] [address] [place] [address] Dr. Ekta Funk PROF 14(COMP METB)on 023 Albumin [Mass/Vol] 3.0 g/dL Critically low 3.4-5.0 [place] Comment on above: Performed By: #### I NSULIN #### [facility] [address] [place] [address] Dr. Ekta Funk Albumin/Globulin [Mass ratio] 0.6 {ratio} Normal [facility] Comment on above: Performed By: #### I NSULIN #### [facility] [address] [place] [address] Dr. Ekta Funk ALP [Catalytic activity/Vol] 92 U/L Normal 46-116 [facility] Comment on above: Performed By: #### I NSULIN #### [facility] [address] [place] [address] Dr. Ekta Funk ALT [Catalytic activity/Vol] 26 U/L Normal 14-59 [facility] Comment on above: Performed By: #### I NSULIN #### [facility] [address] [place] [address] Dr. Ekta Funk Anion gap [Moles/Vol] 16.2 mmol/L Normal [place] Comment on above: Performed By: #### I NSULIN #### [facility] [address] [place] [address] Dr. Ekta Funk AST [Catalytic activity/Vol] 16 U/L Normal 15-37 [facility] Comment on above: Performed By: #### I NSULIN #### [facility] [address] [address] [address] Ekta Funk Bilirubin [Mass/Vol] 0.5 mg/dL Normal 0.2-1.0 [facility] Comment on above: Performed By: #### I NSULIN #### [facility] [address] [address] [address] Ekta Funk Calcium [Mass/Vol] 9.7 mg/dL Normal 8.5-10.1 [facility] Comment on above: Performed By: #### I NSULIN #### [facility] [address] [address] [address] Ekta Funk Chloride [Moles/Vol] 105 mmol/L Normal 98-107 [facility] Comment on above: Performed By: #### I NSULIN #### [facility] [address] [address] [address] Ekta Funk CO2 [Moles/Vol] 24.9 mmol/L Normal 21.0-32.0 [facility] Comment on above: Performed By: #### I NSULIN #### [facility] [address] [address] [address] Ekta Funk Creatinine [Mass/Vol] 2.18 mg/dL Critically high 0.55-1.02 [facility] Comment on above: Performed By: #### I NSULIN #### [facility] [address] [address] [address] Ekta Funk EGFR-AF [place] 27 mL/min/1.73m2 Critically low >=60 [facility] Comment on above: Performed By: #### I NSULIN #### [facility] [address] [address] [address] Ekta Funk EGFR-NON AF [place] 22 mL/min/1.73m2 Critically low >=60 [facility] Comment on above: Performed By: #### I NSULIN #### [facility] [address] [address] [address] Ekta Funk Globulin (S) [Mass/Vol] 4.7 g/dL Normal [facility] Comment on above: Performed By: #### I NSULIN #### [facility] [address] [address] [address] Ekta Funk Glucose [Mass/Vol] 114 mg/dL Critically high 74-106 [facility] Comment on above: Performed By: #### I NSULIN #### [facility] [address] [address] [address] Ekta Funk Potassium [Moles/Vol] 5.1 mmol/L Normal 3.5-5.1 [facility] Comment on above: Performed By: #### I NSULIN #### [facility] [address] [address] [address] Ekta Funk Protein [Mass/Vol] 7.7 g/dL Normal 6.4-8.2 [facility] Comment on above: Performed By: #### I NSULIN #### [facility] [address] [address] [address] Ekta Funk Sodium [Moles/Vol] 141 mmol/L Normal 136-145 [facility] Comment on above: Performed By: #### I NSULIN #### [facility] [address] [address] [address] Ekta Funk Urea nitrogen [Mass/Vol] 51.0 mg/dL Critically high 7.0-18.0 [facility] Comment on above: Performed By: #### I NSULIN #### [facility] [address] [address] [address] Ekta Funk Urea nitrogen/Creatinine [Mass ratio] 23.4 mg/mg Normal [facility] Comment on above: Performed By: #### I NSULIN #### [facility] [address] [address] [address] Ekta Funk TSHon 11-13-2022 TSH 0.935 uIU/mL Normal 0.358-3.740 [facility] Comment on above: Performed By: #### I NSULIN #### [facility] [address] [address] [address] Ekta Funk XR CHEST 2 Von 11-13-2022 XR CHEST 2 V EXAMINATION: XR CHEST 2 V HISTORY: Fatigue COMPARISON: 10/21/2022 TECHNIQUE: [...] by: GODWIN BECK Date: 2022-11-13 15:40 Normal [facility] PROF 14(COMP METB)on 023 Albumin [Mass/Vol] 3.0 g/dL Critically low 3.4-5.0 [place] Comment on above: Performed By: #### B 12FOL, VITAD, IRON #### [facility] [address] [address] [address] Ekta Funk Albumin/Globulin [Mass ratio] 0.7 {ratio} Normal [facility] Comment on above: Performed By: #### B 12FOL, VITAD, IRON #### [facility] [address] [address] [address] Ekta Funk ALP [Catalytic activity/Vol] 89 U/L Normal 46-116 [facility] Comment on above: Performed By: #### B 12FOL, VITAD, IRON #### [facility] [address] [address] [address] Ekta Funk ALT [Catalytic activity/Vol] 29 U/L Normal 14-59 [facility] Comment on above: Performed By: #### B 12FOL, VITAD, IRON #### [facility] [address] [address] [address] Ekta Funk Anion gap [Moles/Vol] 15.2 mmol/L Normal [place] Comment on above: Performed By: #### B 12FOL, VITAD, IRON #### [facility] [address] [address] [address] Ekta Funk AST [Catalytic activity/Vol] 14 U/L Critically low 15-37 [facility] Comment on above: Performed By: #### B 12FOL, VITAD, IRON #### [facility] [address] [address] [address] Ekta Funk Bilirubin [Mass/Vol] 0.4 mg/dL Normal 0.2-1.0 [facility] Comment on above: Performed By: #### B 12FOL, VITAD, IRON #### [facility] [address] [place] [address] Dr. Ekta Funk Calcium [Mass/Vol] 9.1 mg/dL Normal 8.5-10.1 [facility] Comment on above: Performed By: #### B 12FOL, VITAD, IRON #### [facility] [address] [place] [address] Dr. Ekta Funk Chloride [Moles/Vol] 106 mmol/L Normal 98-107 [facility] Comment on above: Performed By: #### B 12FOL, VITAD, IRON #### [facility] [address] [place] [address] Dr. Ekta Funk CO2 [Moles/Vol] 24.2 mmol/L Normal 21.0-32.0 [facility] Comment on above: Performed By: #### B 12FOL, VITAD, IRON #### [facility] [address] [place] [address] Dr. Ekta Funk Creatinine [Mass/Vol] 1.89 mg/dL Critically high 0.55-1.02 [facility] Comment on above: Performed By: #### B 12FOL, VITAD, IRON #### [facility] [address] [place] [address] Dr. Ekta Funk EGFR-AF [place] 32 mL/min/1.73m2 Critically low >=60 [facility] Comment on above: Performed By: #### B 12FOL, VITAD, IRON #### [facility] [address] [place] [address] Dr. Ekta Funk EGFR-NON AF [place] 26 mL/min/1.73m2 Critically low >=60 [facility] Comment on above: Performed By: #### B 12FOL, VITAD, IRON #### [facility] [address] [address] [address] Ekta Funk Globulin (S) [Mass/Vol] 4.1 g/dL Normal [facility] Comment on above: Performed By: #### B 12FOL, VITAD, IRON #### [facility] [address] [place] [address] Dr. Ekta Funk Glucose [Mass/Vol] 108 mg/dL Critically high 74-106 [facility] Comment on above: Performed By: #### B 12FOL, VITAD, IRON #### [facility] [address] [place] [address] Dr. Ekta Funk Potassium [Moles/Vol] 4.4 mmol/L Normal 3.5-5.1 [facility] Comment on above: Performed By: #### B 12FOL, VITAD, IRON #### [facility] [address] [place] [address] Dr. Ekta Funk Protein [Mass/Vol] 7.1 g/dL Normal 6.4-8.2 [facility] Comment on above: Performed By: #### B 12FOL, VITAD, IRON #### [facility] [address] [place] [address] Dr. Ekta Funk Sodium [Moles/Vol] 141 mmol/L Normal 136-145 [facility] Comment on above: Performed By: #### B 12FOL, VITAD, IRON #### [facility] [address] [place] [address] Dr. Ekta Funk Urea nitrogen [Mass/Vol] 40.0 mg/dL Critically high 7.0-18.0 [facility] Comment on above: Performed By: #### B 12FOL, VITAD, IRON #### [facility] [address] [place] [address] Dr. Ekta Funk Urea nitrogen/Creatinine [Mass ratio] 21.2 mg/mg Normal [facility] Comment on above: Performed By: #### B 12FOL, VITAD, IRON #### [facility] [address] [place] [address] Dr. Ekta Funk BNPon 10-23-2022 Natriuretic peptide B (Bld) [Mass/Vol] 507.0 pg/mL Normal <=900.0 [facility] Comment on above: Performed By: #### B 12FOL, VITAD, IRON #### [facility] [address] [place] [address] Dr. Ekta Funk CBC AUTO DIFFon 10-23-2022 BASO # 0.0 103/ul Normal 0.0-0.1 [facility] Comment on above: Performed By: #### C BC #### [facility] [address] [place] [address] Dr. Ekta Funk Basophils/100 WBC (Bld) 0.2 % Normal 0.2-2.0 [facility] Comment on above: Performed By: #### C BC #### [facility] [address] [place] [address] Dr. Ekta Funk EO # 0.1 103/ul Normal 0.0-0.7 [facility] Comment on above: Performed By: #### C BC #### [facility] [address] [place] [address] Dr. Ekta Funk Eosinophils/100 WBC (Bld) 1.1 % Normal 0.9-7.0 [facility] Comment on above: Performed By: #### C BC #### [facility] [address] [place] [address] Dr. Ekta Funk Erythrocyte distribution width (RBC) [Ratio] 12.8 % Normal 11.0-15.0 [facility] Comment on above: Performed By: #### C BC #### [facility] [address] [place] [address] Dr. Ekta Funk Hematocrit (Bld) [Volume fraction] 37.1 % Normal 36.0-48.0 [facility] Comment on above: Performed By: #### C BC #### [facility] [address] [place] [address] Dr. Ekta Funk Hemoglobin (Bld) [Mass/Vol] 13.0 g/dL Normal 12.0-16.0 [facility] Comment on above: Performed By: #### C BC #### [facility] [address] [address] [address] Ekta Funk IG # 0.11 10e3/ul Critically high 0.00-0.03 [facility] Comment on above: Performed By: #### C BC #### [facility] [address] [address] [address] Ekta Funk IG % 1.1 % Critically high 0.0-0.5 [facility] Comment on above: Performed By: #### C BC #### [facility] [address] [address] [address] Ekta Funk LYMPH # 1.6 103/ul Normal 1.2-3.8 [facility] Comment on above: Performed By: #### C BC #### [facility] [address] [place] [address] Dr. Ekta Funk Lymphocytes/100 WBC (Bld) 15.6 % Critically low 20.5-60.0 [facility] Comment on above: Performed By: #### C BC #### [facility] [address] [place] [address] Dr. Ekta Funk MANUAL DIFF REQ NO Normal [facility] Comment on above: Performed By: #### C BC #### [facility] [address] [place] [address] Dr. Ekta Funk MCH (RBC) [Entitic mass] 32.8 pg Normal 26.7-34.0 [facility] Comment on above: Performed By: #### C BC #### [facility] [address] [place] [address] Dr. Ekta Funk MCHC (RBC) [Mass/Vol] 35.0 g/dL Normal 29.9-35.2 [facility] Comment on above: Performed By: #### C BC #### [facility] [address] [place] [address] Dr. Ekta Funk MCV (RBC) [Entitic vol] 93.7 fL Normal 81.0-99.0 [facility] Comment on above: Performed By: #### C BC #### [facility] [address] [address] [address] Ekta Funk MONO # 0.9 103/ul Critically high 0.3-0.8 [facility] Comment on above: Performed By: #### C BC #### [facility] [address] [address] [address] Ekta Funk Monocytes/100 WBC (Bld) 8.3 % Normal 1.7-12.0 [facility] Comment on above: Performed By: #### C BC #### [facility] [address] [place] [address] Dr. Ekta Funk NEUT # 7.5 103/ul Critically high 1.4-6.5 [facility] Comment on above: Performed By: #### C BC #### [facility] [address] [place] [address] Dr. Ekta Funk Neutrophils/100 WBC (Bld) 73.7 % Normal 43.0-75.0 [facility] Comment on above: Performed By: #### C BC #### [facility] [address] [place] [address] Dr. Ekta Funk Platelet mean volume (Bld) [Entitic vol] 10.3 fL Normal 9.5-13.5 [facility] Comment on above: Performed By: #### C BC #### [facility] [address] [place] [address] Dr. Ekta Funk PLT 135 103/ul Critically low 150-450 [facility] Comment on above: Performed By: #### C BC #### [facility] [address] [address] [address] Ekta Funk RBC 3.96 106/ul Critically low 4.20-5.40 [facility] Comment on above: Performed By: #### C BC #### [facility] [address] [place] [address] Dr. Ekta Funk WBC 10.2 103/ul Normal 4.0-11.0 [facility] Comment on above: Performed By: #### C BC #### [facility] [address] [place] [address] Dr. Ekta Funk PROF 14(COMP METB)on 023 Albumin [Mass/Vol] 2.7 g/dL Critically low 3.4-5.0 [place] Comment on above: Performed By: #### B 12FOL, VITAD, IRON #### [facility] [address] [place] [address] Dr. Ekta Funk Albumin/Globulin [Mass ratio] 0.8 {ratio} Normal [facility] Comment on above: Performed By: #### B 12FOL, VITAD, IRON #### [facility] [address] [place] [address] Dr. Ekta Funk ALP [Catalytic activity/Vol] 74 U/L Normal 46-116 [facility] Comment on above: Performed By: #### B 12FOL, VITAD, IRON #### [facility] [address] [place] [address] Dr. Ekta Funk ALT [Catalytic activity/Vol] 26 U/L Normal 14-59 [facility] Comment on above: Performed By: #### B 12FOL, VITAD, IRON #### [facility] [address] [place] [address] Dr. Ekta Funk Anion gap [Moles/Vol] 16.5 mmol/L Normal [place] Comment on above: Performed By: #### B 12FOL, VITAD, IRON #### [facility] [address] [place] [address] Dr. Ekta Funk AST [Catalytic activity/Vol] 15 U/L Normal 15-37 [facility] Comment on above: Performed By: #### B 12FOL, VITAD, IRON #### [facility] [address] [place] [address] Dr. Ekta Funk Bilirubin [Mass/Vol] 0.4 mg/dL Normal 0.2-1.0 [facility] Comment on above: Performed By: #### B 12FOL, VITAD, IRON #### [facility] [address] [place] [address] Dr. Ekta Funk Calcium [Mass/Vol] 8.1 mg/dL Critically low 8.5-10.1 [facility] Comment on above: Performed By: #### B 12FOL, VITAD, IRON #### [facility] [address] [address] [address] Ekta Funk Chloride [Moles/Vol] 96 mmol/L Critically low 98-107 [facility] Comment on above: Performed By: #### B 12FOL, VITAD, IRON #### [facility] [address] [address] [address] Ekta Funk CO2 [Moles/Vol] 26.1 mmol/L Normal 21.0-32.0 [facility] Comment on above: Performed By: #### B 12FOL, VITAD, IRON #### [facility] [address] [place] [address] Dr. Ekta Funk Creatinine [Mass/Vol] 3.28 mg/dL Critically high 0.55-1.02 [facility] Comment on above: Performed By: #### B 12FOL, VITAD, IRON #### [facility] [address] [address] [address] Ekta Funk EGFR-AF [place] 17 mL/min/1.73m2 Critically low >=60 [facility] Comment on above: Performed By: #### B 12FOL, VITAD, IRON #### [facility] [address] [place] [address] Dr. Ekta Funk EGFR-NON AF [place] 14 mL/min/1.73m2 Critically low >=60 [facility] Comment on above: Performed By: #### B 12FOL, VITAD, IRON #### [facility] [address] [address] [address] Ekta Funk Globulin (S) [Mass/Vol] 3.6 g/dL Normal [facility] Comment on above: Performed By: #### B 12FOL, VITAD, IRON #### [facility] [address] [address] [address] Ekta Funk Glucose [Mass/Vol] 132 mg/dL Critically high 74-106 [facility] Comment on above: Performed By: #### B 12FOL, VITAD, IRON #### [facility] [address] [place] [address] Dr. Ekta Funk Potassium [Moles/Vol] 4.6 mmol/L Normal 3.5-5.1 [facility] Comment on above: Performed By: #### B 12FOL, VITAD, IRON #### [facility] [address] [place] [address] Dr. Ekta Funk Protein [Mass/Vol] 6.3 g/dL Critically low 6.4-8.2 Th [facility] Comment on above: Performed By: #### B 12FOL, VITAD, IRON #### [facility] [address] [place] [address] Dr. Ekta Funk Sodium [Moles/Vol] 134 mmol/L Critically low 136-145 Th [facility] Comment on above: Performed By: #### B 12FOL, VITAD, IRON #### [facility] [address] [place] [address] Dr. Ekta Funk Urea nitrogen [Mass/Vol] 74.0 mg/dL Critically high 7.0-18.0 [facility] Comment on above: Performed By: #### B 12FOL, VITAD, IRON #### [facility] [address] [place] [address] Dr. Ekta Funk Urea nitrogen/Creatinine [Mass ratio] 22.6 mg/mg Normal [facility] Comment on above: Performed By: #### B 12FOL, VITAD, IRON #### [facility] [address] [place] [address] Dr. Ekta Funk BNPon 10-22-2022 Natriuretic peptide B (Bld) [Mass/Vol] 1411.0 pg/mL Critically high <=900.0 [facility] Comment on above: Performed By: #### B 12FOL, VITAD, IRON #### [facility] [address] [place] [address] Dr. Ekta Funk CBC AUTO DIFFon 10-22-2022 BASO # 0.0 103/ul Normal 0.0-0.1 [facility] Comment on above: Performed By: #### B 12FOL, VITAD, IRON #### [facility] [address] [place] [address] Dr. Ekta Funk Basophils/100 WBC (Bld) 0.3 % Normal 0.2-2.0 [facility] Comment on above: Performed By: #### B 12FOL, VITAD, IRON #### [facility] [address] [place] [address] Dr. Ekta Funk EO # 0.1 103/ul Normal 0.0-0.7 [facility] Comment on above: Performed By: #### B 12FOL, VITAD, IRON #### [facility] [address] [place] [address] Dr. Ekta Funk Eosinophils/100 WBC (Bld) 0.6 % Critically low 0.9-7.0 [facility] Comment on above: Performed By: #### B 12FOL, VITAD, IRON #### [facility] [address] [place] [address] Dr. Ekta Funk Erythrocyte distribution width (RBC) [Ratio] 12.9 % Normal 11.0-15.0 [facility] Comment on above: Performed By: #### B 12FOL, VITAD, IRON #### [facility] [address] [place] [address] Dr. Ekta Funk Hematocrit (Bld) [Volume fraction] 40.8 % Normal 36.0-48.0 [facility] Comment on above: Performed By: #### B 12FOL, VITAD, IRON #### [facility] [address] [place] [address] Dr. Ekta Funk Hemoglobin (Bld) [Mass/Vol] 14.0 g/dL Normal 12.0-16.0 [facility] Comment on above: Performed By: #### B 12FOL, VITAD, IRON #### [facility] [address] [place] [address] Dr. Ekta Funk IG # 0.09 10e3/ul Critically high 0.00-0.03 [facility] Comment on above: Performed By: #### B 12FOL, VITAD, IRON #### [facility] [address] [address] [address] Ekta Funk IG % 0.8 % Critically high 0.0-0.5 [facility] Comment on above: Performed By: #### B 12FOL, VITAD, IRON #### [facility] [address] [place] [address] Dr. Ekta Funk LYMPH # 1.8 103/ul Normal 1.2-3.8 [facility] Comment on above: Performed By: #### B 12FOL, VITAD, IRON #### [facility] [address] [place] [address] Dr. Ekta Funk Lymphocytes/100 WBC (Bld) 16.2 % Critically low 20.5-60.0 [facility] Comment on above: Performed By: #### B 12FOL, VITAD, IRON #### [facility] [address] [place] [address] Dr. Ekta Funk MANUAL DIFF REQ NO Normal [facility] Comment on above: Performed By: #### B 12FOL, VITAD, IRON #### [facility] [address] [place] [address] Dr. Ekta Funk MCH (RBC) [Entitic mass] 32.3 pg Normal 26.7-34.0 [facility] Comment on above: Performed By: #### B 12FOL, VITAD, IRON #### [facility] [address] [place] [address] Dr. Ekta Funk MCHC (RBC) [Mass/Vol] 34.3 g/dL Normal 29.9-35.2 [facility] Comment on above: Performed By: #### B 12FOL, VITAD, IRON #### [facility] [address] [place] [address] Dr. Ekta Funk MCV (RBC) [Entitic vol] 94.2 fL Normal 81.0-99.0 [facility] Comment on above: Performed By: #### B 12FOL, VITAD, IRON #### [facility] [address] [place] [address] Dr. Ekta Funk MONO # 0.8 103/ul Normal 0.3-0.8 [facility] Comment on above: Performed By: #### B 12FOL, VITAD, IRON #### [facility] [address] [place] [address] Dr. Ekta Funk Monocytes/100 WBC (Bld) 7.3 % Normal 1.7-12.0 [facility] Comment on above: Performed By: #### B 12FOL, VITAD, IRON #### [facility] [address] [place] [address] Dr. Ekta Funk NEUT # 8.1 103/ul Critically high 1.4-6.5 [facility] Comment on above: Performed By: #### B 12FOL, VITAD, IRON #### [facility] [address] [place] [address] Dr. Ekta Funk Neutrophils/100 WBC (Bld) 74.8 % Normal 43.0-75.0 [facility] Comment on above: Performed By: #### B 12FOL, VITAD, IRON #### [facility] [address] [place] [address] Dr. Ekta Funk Platelet mean volume (Bld) [Entitic vol] 9.8 fL Normal 9.5-13.5 [facility] Comment on above: Performed By: #### B 12FOL, VITAD, IRON #### [facility] [address] [place] [address] Dr. Ekta Funk PLT 226 103/ul Normal 150-450 [facility] Comment on above: Performed By: #### B 12FOL, VITAD, IRON #### [facility] [address] [place] [address] Dr. Ekta Funk RBC 4.33 106/ul Normal 4.20-5.40 [facility] Comment on above: Performed By: #### B 12FOL, VITAD, IRON #### [facility] [address] [place] [address] Dr. Ekta Funk WBC 10.9 103/ul Normal 4.0-11.0 [facility] Comment on above: Performed By: #### B 12FOL, VITAD, IRON #### [facility] [address] [place] [address] Dr. Ekta Funk PROF 14(COMP METB)on 023 Albumin [Mass/Vol] 3.1 g/dL Critically low 3.4-5.0 [place] Comment on above: Performed By: #### B 12FOL, VITAD, IRON #### [facility] [address] [place] [address] Dr. Ekta Funk Albumin/Globulin [Mass ratio] 0.7 {ratio} Normal [facility] Comment on above: Performed By: #### B 12FOL, VITAD, IRON #### [facility] [address] [place] [address] Dr. Ekta Funk ALP [Catalytic activity/Vol] 81 U/L Normal 46-116 [facility] Comment on above: Performed By: #### B 12FOL, VITAD, IRON #### [facility] [address] [place] [address] Dr. Ekta Funk ALT [Catalytic activity/Vol] 30 U/L Normal 14-59 [facility] Comment on above: Performed By: #### B 12FOL, VITAD, IRON #### [facility] [address] [place] [address] Dr. Ekta Funk Anion gap [Moles/Vol] 17.3 mmol/L Normal [place] Comment on above: Performed By: #### B 12FOL, VITAD, IRON #### [facility] [address] [place] [address] Dr. Ekta Funk AST [Catalytic activity/Vol] 11 U/L Critically low 15-37 [facility] Comment on above: Performed By: #### B 12FOL, VITAD, IRON #### [facility] [address] [place] [address] Dr. Ekta Funk Bilirubin [Mass/Vol] 0.5 mg/dL Normal 0.2-1.0 [facility] Comment on above: Performed By: #### B 12FOL, VITAD, IRON #### [facility] [address] [address] [address] Ekta Funk Calcium [Mass/Vol] 8.6 mg/dL Normal 8.5-10.1 [facility] Comment on above: Performed By: #### B 12FOL, VITAD, IRON #### [facility] [address] [address] [address] Ekta Funk Chloride [Moles/Vol] 95 mmol/L Critically low 98-107 [facility] Comment on above: Performed By: #### B 12FOL, VITAD, IRON #### [facility] [address] [place] [address] Dr. Ekta Funk CO2 [Moles/Vol] 27.3 mmol/L Normal 21.0-32.0 [facility] Comment on above: Performed By: #### B 12FOL, VITAD, IRON #### [facility] [address] [place] [address] Dr. Ekta Funk Creatinine [Mass/Vol] 3.17 mg/dL Critically high 0.55-1.02 [facility] Comment on above: Performed By: #### B 12FOL, VITAD, IRON #### [facility] [address] [place] [address] Dr. Ekta Funk EGFR-AF [place] 17 mL/min/1.73m2 Critically low >=60 [facility] Comment on above: Performed By: #### B 12FOL, VITAD, IRON #### [facility] [address] [place] [address] Dr. Ekta Funk EGFR-NON AF [place] 14 mL/min/1.73m2 Critically low >=60 [facility] Comment on above: Performed By: #### B 12FOL, VITAD, IRON #### [facility] [address] [place] [address] Dr. Ekta Funk Globulin (S) [Mass/Vol] 4.6 g/dL Normal [facility] Comment on above: Performed By: #### B 12FOL, VITAD, IRON #### [facility] [address] [place] [address] Dr. Ekta Funk Glucose [Mass/Vol] 139 mg/dL Critically high 74-106 T [facility] Comment on above: Performed By: #### B 12FOL, VITAD, IRON #### [facility] [address] [place] [address] Dr. Ekta Funk Potassium [Moles/Vol] 4.6 mmol/L Normal 3.5-5.1 [facility] Comment on above: Performed By: #### B 12FOL, VITAD, IRON #### [facility] [address] [place] [address] Dr. Ekta Funk Protein [Mass/Vol] 7.7 g/dL Normal 6.4-8.2 [facility] Comment on above: Performed By: #### B 12FOL, VITAD, IRON #### [facility] [address] [place] [address] Dr. Ekta Funk Sodium [Moles/Vol] 135 mmol/L Critically low 136-145 Th [facility] Comment on above: Performed By: #### B 12FOL, VITAD, IRON #### [facility] [address] [place] [address] Dr. Ekta Funk Urea nitrogen [Mass/Vol] 73.0 mg/dL Critically high 7.0-18.0 [facility] Comment on above: Performed By: #### B 12FOL, VITAD, IRON #### [facility] [address] [place] [address] Dr. Ekta Funk Urea nitrogen/Creatinine [Mass ratio] 23.0 mg/mg Normal [facility] Comment on above: Performed By: #### B 12FOL, VITAD, IRON #### [facility] [address] [place] [address] Dr. Ekta Funk BNPon 10-21-2022 Natriuretic peptide B (Bld) [Mass/Vol] 2007.0 pg/mL Critically high <=900.0 [facility] Comment on above: Performed By: #### C MP #### [facility] [address] [address] [address] Ekta Funk CBC AUTO DIFFon 10-21-2022 BASO # 0.0 103/ul Normal 0.0-0.1 [facility] Comment on above: Performed By: #### C BC #### [facility] [address] [place] [address] Dr. Ekta Funk Basophils/100 WBC (Bld) 0.2 % Normal 0.2-2.0 [facility] Comment on above: Performed By: #### C BC #### [facility] [address] [place] [address] Dr. Ekta Funk EO # 0.1 103/ul Normal 0.0-0.7 [facility] Comment on above: Performed By: #### C BC #### [facility] [address] [place] [address] Dr. Ekta Funk Eosinophils/100 WBC (Bld) 0.9 % Normal 0.9-7.0 [facility] Comment on above: Performed By: #### C BC #### [facility] [address] [place] [address] Dr. Ekta Funk Erythrocyte distribution width (RBC) [Ratio] 12.8 % Normal 11.0-15.0 [facility] Comment on above: Performed By: #### C BC #### [facility] [address] [place] [address] Dr. Ekta Funk Hematocrit (Bld) [Volume fraction] 38.8 % Normal 36.0-48.0 [facility] Comment on above: Performed By: #### C BC #### [facility] [address] [place] [address] Dr. Ekta Funk Hemoglobin (Bld) [Mass/Vol] 13.3 g/dL Normal 12.0-16.0 [facility] Comment on above: Performed By: #### C BC #### [facility] [address] [place] [address] Dr. Ekta Funk IG # 0.08 10e3/ul Critically high 0.00-0.03 [facility] Comment on above: Performed By: #### C BC #### [facility] [address] [place] [address] Dr. Ekta Funk IG % 0.8 % Critically high 0.0-0.5 [facility] Comment on above: Performed By: #### C BC #### [facility] [address] [place] [address] Dr. Ekta Funk LYMPH # 1.7 103/ul Normal 1.2-3.8 [facility] Comment on above: Performed By: #### C BC #### [facility] [address] [place] [address] Dr. Ekta Funk Lymphocytes/100 WBC (Bld) 17.3 % Critically low 20.5-60.0 [facility] Comment on above: Performed By: #### C BC #### [facility] [address] [place] [address] Dr. Ekta Funk MANUAL DIFF REQ NO Normal [facility] Comment on above: Performed By: #### C BC #### [facility] [address] [place] [address] Dr. Ekta Funk MCH (RBC) [Entitic mass] 32.1 pg Normal 26.7-34.0 [facility] Comment on above: Performed By: #### C BC #### [facility] [address] [place] [address] Dr. Ekta Funk MCHC (RBC) [Mass/Vol] 34.3 g/dL Normal 29.9-35.2 [facility] Comment on above: Performed By: #### C BC #### [facility] [address] [place] [address] Dr. Ekta Funk MCV (RBC) [Entitic vol] 93.7 fL Normal 81.0-99.0 [facility] Comment on above: Performed By: #### C BC #### [facility] [address] [place] [address] Dr. Ekta Funk MONO # 0.6 103/ul Normal 0.3-0.8 [facility] Comment on above: Performed By: #### C BC #### [facility] [address] [place] [address] Dr. Ekta Funk Monocytes/100 WBC (Bld) 6.4 % Normal 1.7-12.0 [facility] Comment on above: Performed By: #### C BC #### [facility] [address] [address] [address] Ekta Funk NEUT # 7.4 103/ul Critically high 1.4-6.5 [facility] Comment on above: Performed By: #### C BC #### [facility] [address] [address] [address] Ekta Funk Neutrophils/100 WBC (Bld) 74.4 % Normal 43.0-75.0 [facility] Comment on above: Performed By: #### C BC #### [facility] [address] [place] [address] Dr. Ekta Funk Platelet mean volume (Bld) [Entitic vol] 9.8 fL Normal 9.5-13.5 [facility] Comment on above: Performed By: #### C BC #### [facility] [address] [address] [address] Ekta Funk PLT 193 103/ul Normal 150-450 [facility] Comment on above: Performed By: #### C BC #### [facility] [address] [address] [address] Ekta Funk RBC 4.14 106/ul Critically low 4.20-5.40 [facility] Comment on above: Performed By: #### C BC #### [facility] [address] [address] [address] Ekta Funk WBC 9.9 103/ul Normal 4.0-11.0 [facility] Comment on above: Performed By: #### C BC #### [facility] [address] [address] [address] Ekta Funk PROF 14(COMP METB)on 023 Albumin [Mass/Vol] 3.2 g/dL Critically low 3.4-5.0 [facility] Comment on above: Performed By: #### I NSULIN #### [facility] [address] [place] [address] Dr. Ekta Funk Albumin/Globulin [Mass ratio] 0.8 {ratio} Normal [facility] Comment on above: Performed By: #### I NSULIN #### [facility] [address] [place] [address] Dr. Ekta Funk ALP [Catalytic activity/Vol] 82 U/L Normal 46-116 [facility] Comment on above: Performed By: #### I NSULIN #### [facility] [address] [place] [address] Dr. Ekta Funk ALT [Catalytic activity/Vol] 38 U/L Normal 14-59 [facility] Comment on above: Performed By: #### I NSULIN #### [facility] [address] [place] [address] Dr. Ekta Funk Anion gap [Moles/Vol] 19.1 mmol/L Normal [place] Comment on above: Performed By: #### I NSULIN #### [facility] [address] [place] [address] Dr. Ekta Funk AST [Catalytic activity/Vol] 19 U/L Normal 15-37 [facility] Comment on above: Performed By: #### I NSULIN #### [facility] [address] [place] [address] Dr. Ekta Funk Bilirubin [Mass/Vol] 0.4 mg/dL Normal 0.2-1.0 [facility] Comment on above: Performed By: #### I NSULIN #### [facility] [address] [place] [address] Dr. Ekta Funk Calcium [Mass/Vol] 9.2 mg/dL Normal 8.5-10.1 [facility] Comment on above: Performed By: #### I NSULIN #### [facility] [address] [place] [address] Dr. Ekta Funk Chloride [Moles/Vol] 98 mmol/L Normal 98-107 [facility] Comment on above: Performed By: #### I NSULIN #### [facility] [address] [place] [address] Dr. Ekta Funk CO2 [Moles/Vol] 26.4 mmol/L Normal 21.0-32.0 [facility] Comment on above: Performed By: #### I NSULIN #### [facility] [address] [address] [address] Ekta Funk Creatinine [Mass/Vol] 2.20 mg/dL Critically high 0.55-1.02 [facility] Comment on above: Performed By: #### I NSULIN #### [facility] [address] [address] [address] Ekta Funk EGFR-AF [place] 26 mL/min/1.73m2 Critically low >=60 [facility] Comment on above: Performed By: #### I NSULIN #### [facility] [address] [address] [address] Ekta Funk EGFR-NON AF [place] 22 mL/min/1.73m2 Critically low >=60 [facility] Comment on above: Performed By: #### I NSULIN #### [facility] [address] [address] [address] Ekta Funk Globulin (S) [Mass/Vol] 3.8 g/dL Normal [facility] Comment on above: Performed By: #### I NSULIN #### [facility] [address] [address] [address] Ekta Funk Glucose [Mass/Vol] 142 mg/dL Critically high 74-106 T [facility] Comment on above: Performed By: #### I NSULIN #### [facility] [address] [address] [address] Ekta Funk Potassium [Moles/Vol] 4.5 mmol/L Normal 3.5-5.1 [facility] Comment on above: Performed By: #### I NSULIN #### [facility] [address] [address] [address] Ekta Funk Protein [Mass/Vol] 7.0 g/dL Normal 6.4-8.2 [facility] Comment on above: Performed By: #### I NSULIN #### [facility] [address] [address] [address] Ekta Funk Sodium [Moles/Vol] 139 mmol/L Normal 136-145 [facility] Comment on above: Performed By: #### I NSULIN #### [facility] [address] [place], [place] [address] Dr. Ekta Funk Urea nitrogen [Mass/Vol] 57.0 mg/dL Critically high 7.0-18.0 [facility] Comment on above: Performed By: #### I NSULIN #### [facility] [address] [place], [place] [address] Dr. Ekta Funk Urea nitrogen/Creatinine [Mass ratio] 25.9 mg/mg Normal [facility] Comment on above: Performed By: #### I NSULIN #### [facility] [id number] Ekta Funk T3, TOTAL (TRIIODOTHYRONINE) on 10-21-2022 T3, TOTAL 63 ng/dL Critically low 71-180 [facility] Comment on above: Performed By: #### C MP #### [facility] [address] [place] [address] [id number] [address] Ekta Funk XR ABD FLAT_UPon 10-21-2022 [...] MARIE Date: 2022-10-21 11:42 Normal [facility] XR CHEST 2 Von 10-21-2022 [...] CHRISTIANO MORALES Date: 2022-10-21 11:23 Normal [facility] BNPon 10-20-2022 Natriuretic peptide B (Bld) [Mass/Vol] 2512.0 pg/mL Critically high <=900.0 [facility] Comment on above: Performed By: #### B ElviraFOL VITAD, IRON #### [facility] [address] [place] [address] Dr. Ekta Funk CARDIAC BRITTANIE ADMITon 023 CK [Catalytic activity/Vol] 35 U/L Normal 26-192 [facility] Comment on above: Performed By: #### B CAROLYN LAUGHLIN, IRON #### [facility] [address] [place] [address] Dr. Ekta Funk CK.MB [Mass/Vol] 0.64 ng/mL Normal <=3.60 [facility] Comment on above: Performed By: #### Bob FelixFONENO LuiAD, IRON #### [facility] [address] [place] [address] Dr. Ekta Funk HSTROP 28.1 pg/mL Normal 4.0-51.3 [facility] Comment on above: Result Comment: CUT- OFF POINTS HAVE BEEN ESTABLISHED BASED ON THE FOURTH UNIVERSAL DEFINITIONS OF MYOCARDIAL INFARCTION. THE UPPER REFERENCE LIMIT (URL) OF TROPONIN, DEFINED THE 99TH PERCENTILE OF cTnI DISTRIBUTION IN A REFERENCE POPULATION, HAS BEEN CONFIRMED THE DECISION THRESHOLD FOR [place] DIAGNOSIS. Performed By: #### B 12FOL VITAD, IRON #### [facility] [address] [place] [address] Dr. Ekta Funk EVELYN 57 ng/mL Normal 9-82 [facility] Comment on above: Performed By: #### B ElvriaFOL VITAD, IRON #### [facility] [address] [place] [address] Dr. Ekta Funk CBC AUTO DIFFon 10-20-2022 BASO # 0.0 103/ul Normal 0.0-0.1 [facility] Comment on above: Performed By: #### C BC #### [facility] [address] [address] [address] Ekta Funk Basophils/100 WBC (Bld) 0.2 % Normal 0.2-2.0 [facility] Comment on above: Performed By: #### C BC #### [facility] [address] [place] [address] Dr. Ekta Funk EO # 0.2 103/ul Normal 0.0-0.7 [facility] Comment on above: Performed By: #### C BC #### [facility] [address] [address] [address] Ekta Funk Eosinophils/100 WBC (Bld) 1.4 % Normal 0.9-7.0 [facility] Comment on above: Performed By: #### C BC #### [facility] [address] [place] [address] Dr. Ekta Funk Erythrocyte distribution width (RBC) [Ratio] 12.9 % Normal 11.0-15.0 [facility] Comment on above: Performed By: #### C BC #### [facility] [address] [place] [address] Dr. Ekta Funk Hematocrit (Bld) [Volume fraction] 34.7 % Critically low 36.0-48.0 [facility] Comment on above: Performed By: #### C BC #### [facility] [address] [place] [address] Dr. Ekta Funk Hemoglobin (Bld) [Mass/Vol] 11.8 g/dL Critically low 12.0-16.0 [facility] Comment on above: Performed By: #### C BC #### [facility] [address] [place] [address] Dr. Ekta Funk IG # 0.09 10e3/ul Critically high 0.00-0.[address] [facility] Comment on above: Performed By: #### C BC #### [facility] [address] [place] [address] Dr. Ekta Funk IG % 0.8 % Critically high 0.0-0.5 [facility] Comment on above: Performed By: #### C BC #### [facility] [address] [place] [address] Dr. Ekta Funk LYMPH # 1.9 103/ul Normal 1.2-3.8 [facility] Comment on above: Performed By: #### C BC #### [facility] [address] [place] [address] Dr. Ekta Funk Lymphocytes/100 WBC (Bld) 16.1 % Critically low 20.5-60.0 [facility] Comment on above: Performed By: #### C BC #### [facility] [address] [place] [address] Dr. Ekta Funk MANUAL DIFF REQ NO Normal [facility] Comment on above: Performed By: #### C BC #### [facility] [address] [place] [address] Dr. Ekta Funk MCH (RBC) [Entitic mass] 32.6 pg Normal 26.7-34.0 [facility] Comment on above: Performed By: #### C BC #### [facility] [address] [place] [address] Dr. Ekta Funk MCHC (RBC) [Mass/Vol] 34.0 g/dL Normal 29.9-35.2 [facility] Comment on above: Performed By: #### C BC #### [facility] [address] [place] [address] Dr. Ekta Funk MCV (RBC) [Entitic vol] 95.9 fL Normal 81.0-99.0 [facility] Comment on above: Performed By: #### C BC #### [facility] [address] [place] [address] Dr. Ekta Funk MONO # 0.8 103/ul Normal 0.3-0.8 [facility] Comment on above: Performed By: #### C BC #### [facility] [address] [place] [address] Dr. Ekta Funk Monocytes/100 WBC (Bld) 7.0 % Normal 1.7-12.0 [facility] Comment on above: Performed By: #### C BC #### [facility] [address] [place] [address] Dr. Ekta Funk NEUT # 8.8 103/ul Critically high 1.4-6.5 [facility] Comment on above: Performed By: #### C BC #### [facility] [address] [place] [address] Dr. Ekta Funk Neutrophils/100 WBC (Bld) 74.5 % Normal 43.0-75.0 [facility] Comment on above: Performed By: #### C BC #### [facility] [address] [place] [address] Dr. Ekta Funk Platelet mean volume (Bld) [Entitic vol] 9.8 fL Normal 9.5-13.5 [facility] Comment on above: Performed By: #### C BC #### [facility] [address] [place] [address] Dr. Ekta Funk PLT 203 103/ul Normal 150-450 [facility] Comment on above: Performed By: #### C BC #### [facility] [address] [place] [address] Dr. Ekta Funk RBC 3.62 106/ul Critically low 4.20-5.40 [facility] Comment on above: Performed By: #### C BC #### [facility] [address] [place] [address] Dr. Ekta Funk WBC 11.8 103/ul Critically high 4.0-11.0 [facility] Comment on above: Performed By: #### C BC #### [facility] [address] [place] [address] Dr. Ekta Funk CULTURE URINEon 10-20-2022 CULTURE URINE Culture Observations: NO GROWTH. Normal [facility] Comment on above: Performed By: #### I NSULIN #### [facility] [address] [place] [address] Dr. Ekta Funk [facility] SARS-CoV-2 (COVID-19) RNA GANESH+probe Ql (Unsp spec) Not detected Normal NOT DETECTED [facility] Comment on above: Result Comment: When [...] for this test is supported by the Public Health Sanitarian Technician of Health and Human Service's declaration that [...] By: #### B 12FOL, CAROLYN, IRON #### [facility] [address] [place] [address] Dr. Ekta Funk ECHOCARDIO M/2D COMPLETEon 0 10-20-2022 ECHOCARDIO M/2D COMPLETE Patient: SHEILA MAC Exam Date: 10/20/2022 : 1950 Gender:F Ordering : DR KRZYSZTOF HARP . Admission #: [id number] Family : Order #: [id number] CLICK HERE TO VIEW EXAM ECHOCARDIOGRAM REPORT [...] Pressure: 34.67 ml, 34.67 ml Dictated by: Ehab Eltahawy, M.D. on 10/20/2022 at 14:52 Approved by: Sylwia Mckay M.D. on 10/20/2022 at 14:57 Normal [facility] PROF 14(COMP METB)on 023 Albumin [Mass/Vol] 2.8 g/dL Critically low 3.4-5.0 [place] Comment on above: Performed By: #### B 12FOL, VITAD, IRON #### [facility] [address] [address] [address] Ekta Funk Albumin/Globulin [Mass ratio] 0.7 {ratio} Normal [facility] Comment on above: Performed By: #### B 12FOL, VITAD, IRON #### [facility] [address] [address] [address] Ekta Funk ALP [Catalytic activity/Vol] 84 U/L Normal 46-116 [facility] Comment on above: Performed By: #### B 12FOL, VITAD, IRON #### [facility] [address] [address] [address] Ekta Funk ALT [Catalytic activity/Vol] 29 U/L Normal 14-59 [facility] Comment on above: Performed By: #### B 12FOL, VITAD, IRON #### [facility] [address] [address] [address] Ekta Funk Anion gap [Moles/Vol] 15.9 mmol/L Normal [place] Comment on above: Performed By: #### B 12FOL, VITAD, IRON #### [facility] [address] [address] [address] Ekta Funk AST [Catalytic activity/Vol] 15 U/L Normal 15-37 [facility] Comment on above: Performed By: #### B 12FOL, VITAD, IRON #### [facility] [address] [address] [address] Ekta Funk Bilirubin [Mass/Vol] 0.3 mg/dL Normal 0.2-1.0 [facility] Comment on above: Performed By: #### B 12FOL, VITAD, IRON #### [facility] [address] [place] [address] Dr. Ekta Funk Calcium [Mass/Vol] 8.9 mg/dL Normal 8.5-10.1 [facility] Comment on above: Performed By: #### B 12FOL, VITAD, IRON #### [facility] [address] [place] [address] Dr. Ekta Funk Chloride [Moles/Vol] 103 mmol/L Normal 98-107 [facility] Comment on above: Performed By: #### B 12FOL, VITAD, IRON #### [facility] [address] [place] [address] Dr. Ekta Funk CO2 [Moles/Vol] 26.3 mmol/L Normal 21.0-32.0 [facility] Comment on above: Performed By: #### B 12FOL, VITAD, IRON #### [facility] [address] [place] [address] Dr. Ekta Funk Creatinine [Mass/Vol] 1.99 mg/dL Critically high 0.55-1.02 [facility] Comment on above: Performed By: #### B 12FOL, VITAD, IRON #### [facility] [address] [place] [address] Dr. Ekta Funk EGFR-AF SOUTH [place]OREAN 30 mL/min/1.73m2 Critically low >=60 [facility] Comment on above: Performed By: #### B 12FOL, VITAD, IRON #### [facility] [address] [place] [address] Dr. Ekta Funk EGFR-NON AF [place]ORE[place] 24 mL/min/1.73m2 Critically low >=60 [facility] Comment on above: Performed By: #### B 12FOL, VITAD, IRON #### [facility] [address] [place] [address] Dr. Ekta Funk Globulin (S) [Mass/Vol] 4.1 g/dL Normal [facility] Comment on above: Performed By: #### B 12FOL, VITAD, IRON #### [facility] [address] [address] [address] Ekta Funk Glucose [Mass/Vol] 115 mg/dL Critically high 74-106 [facility] Comment on above: Performed By: #### B 12FOL, VITAD, IRON #### [facility] [address] [place] [address] Dr. Ekta Funk Potassium [Moles/Vol] 5.2 mmol/L Critically high 3.5-5.1 [facility] Comment on above: Performed By: #### B 12FOL, VITAD, IRON #### [facility] [address] [address] [address] Ekta Funk Protein [Mass/Vol] 6.9 g/dL Normal 6.4-8.2 [facility] Comment on above: Performed By: #### B 12FOL, VITAD, IRON #### [facility] [address] [place] [address] Dr. Ekta Funk Sodium [Moles/Vol] 140 mmol/L Normal 136-145 [facility] Comment on above: Performed By: #### B 12FOL, VITAD, IRON #### [facility] [address] [address] [address] Ekta Funk Urea nitrogen [Mass/Vol] 45.0 mg/dL Critically high 7.0-18.0 [facility] Comment on above: Performed By: #### B 12FOL, VITAD, IRON #### [facility] [address] [place] [address] Dr. Ekta Funk Urea nitrogen/Creatinine [Mass ratio] 22.6 mg/mg Normal [facility] Comment on above: Performed By: #### B 12FOL, VITAD, IRON #### [facility] [address] [place] [address] Dr. Ekta Funk T4on 10-20-2022 T4 [Mass/Vol] 6.10 ug/dL Normal 4.80-13.90 [facility] Comment on above: Performed By: #### B 12FOL, VITAD, IRON #### [facility] [address] [place] [address] Dr. Ekta Funk TSHon 10-20-2022 TSH 1.336 uIU/mL Normal 0.358-3.740 [facility] Comment on above: Performed By: #### B 12FOL, VITAD, IRON #### [facility] [address] [place] [address] Dr. Ekta Funk UA RANDOM W/MICROSCOPICon BACTERIA TRACE Abnormal NONE SEEN [facility] Comment on above: Performed By: #### B 12FOL, VITAD, IRON #### [facility] [address] [place] [address] Dr. Ekta Funk Bilirubin Ql (U) Negative Normal NEGATIVE [facility] Comment on above: Performed By: #### B 12FOL, VITAD, IRON #### [facility] [address] [place] [address] Dr. Ekta Funk CAST NONE SEEN Normal NONE SEEN [facility] Comment on above: Performed By: #### B 12FOL, VITAD, IRON #### [facility] [address] [place] [address] Dr. Ekta Funk Clarity (U) CLEAR Normal CLEAR [facility] Comment on above: Performed By: #### B 12FOL, VITAD, IRON #### [facility] [address] [place] [address] Dr. Ekta Funk Color (U) LT. YELLOW Normal YELLOW [facility] Comment on above: Performed By: #### B 12FOL, VITAD, IRON #### [facility] [address] [place] [address] Dr. Ekta Funk Crystals LM Nom (Urine sed) NONE SEEN Normal NONE SEEN [facility] Comment on above: Performed By: #### B 12FOL, VITAD, IRON #### [facility] [address] [place] [address] Dr. Ekta Funk Epithelial cells LM Ql (Urine sed) RARE Normal NONE SEEN /RARE [facility] Comment on above: Performed By: #### B 12FOL, VITAD, IRON #### [facility] [address] [place] [address] Dr. Ekta Funk Glucose Ql (U) Negative Normal NEGATIVE [facility] Comment on above: Performed By: #### B 12FOL, VITAD, IRON #### [facility] [address] [address] [address] Ekta Funk Hemoglobin Ql (U) Negative Normal NEGATIVE [facility] Comment on above: Performed By: #### B 12FOL, VITAD, IRON #### [facility] [address] [address] [address] Ekta Funk Ketones Ql (U) Negative Normal NEGATIVE [facility] Comment on above: Performed By: #### B 12FOL, VITAD, IRON #### [facility] [address] [place] [address] Dr. Ekta Funk LEUKOCYTES Negative Normal NEGATIVE [facility] Comment on above: Performed By: #### B 12FOL, VITAD, IRON #### [facility] [address] [place] [address] Dr. Ekta Funk MUCOUS NONE SEEN Normal NONE SEEN [facility] Comment on above: Performed By: #### B 12FOL, VITAD, IRON #### [facility] [address] [address] [address] Ekta Funk Nitrite Ql (U) Negative Normal NEGATIVE [facility] Comment on above: Performed By: #### B 12FOL, VITAD, IRON #### [facility] [address] [address] [address] Ekta Funk pH (U) 6.0 [pH] Normal 5-9 [facility] Comment on above: Performed By: #### B 12FOL, VITAD, IRON #### [facility] [address] [place] [address] Dr. Ekta Funk RBC 0-2 Normal 0-2 [facility] Comment on above: Performed By: #### B 12FOL, VITAD, IRON #### [facility] [address] [place] [address] Dr. Ekta Funk SPEC GRAVITY <=1.005 Abnormal 1.005-<=1.025 [facility] Comment on above: Performed By: #### B 12FOL, VITAD, IRON #### [facility] [address] [place] [address] Dr. Ekta Funk UA PROTEIN Negative Normal NEGATIVE/ TRACE [facility] Comment on above: Performed By: #### B 12FOL, VITAD, IRON #### [facility] [address] [place] [address] Dr. Ekta Funk Urobilinogen Qn (U) 0.2 {Ivan'U}/dL Normal 0.2 - 1. 0 [facility] Comment on above: Performed By: #### B 12FOL, VITAD, IRON #### [facility] [address] [place] [address] Dr. Ekta Funk WBC NONE SEEN Normal NONE SEEN [facility] Comment on above: Performed By: #### B 12FOL, VITAD, IRON #### [facility] [address] [place] [address] Dr. Ekta Funk BNPon 10-19-2022 Natriuretic peptide B (Bld) [Mass/Vol] 1355.0 pg/mL Critically high <=900.0 [facility] Comment on above: Performed By: #### B 12FOL, VITAD, IRON #### [facility] [address] [place] [address] Dr. Ekta Funk INSULINon 10-19-2022 Insulin 12.4 uIU/mL Normal 2.6-24.9 [facility] Comment on above: Performed By: #### I NSULIN #### [facility] [address] [place] [address] Dr. Ekta Funk OCC BLD IMMUNO SCREENon OCCULT BLOOD Positive Abnormal NEGATIVE [facility] Comment on above: Performed By: #### B 12FOL, VITAD, IRON #### [facility] [address] [place] [address] Dr. Ekta Funk PROF CHEM 8 (BAS METB)on Anion gap [Moles/Vol] 15.8 mmol/L Normal Th [facility] Comment on above: Performed By: #### B 12FOL, VITAD, IRON #### [facility] [address] [address] [address] Ekta Funk Calcium [Mass/Vol] 8.8 mg/dL Normal 8.5-10.1 [facility] Comment on above: Performed By: #### B 12FOL, VITAD, IRON #### [facility] [address] [address] [address] Ekta Funk Chloride [Moles/Vol] 107 mmol/L Normal 98-107 [facility] Comment on above: Performed By: #### B 12FOL, VITAD, IRON #### [facility] [address] [place] [address] Dr. Ekta Funk CO2 [Moles/Vol] 21.5 mmol/L Normal 21.0-32.0 [facility] Comment on above: Performed By: #### B 12FOL, VITAD, IRON #### [facility] [address] [place] [address] Dr. Ekta Funk Creatinine [Mass/Vol] 1.62 mg/dL Critically high 0.55-1.02 [facility] Comment on above: Performed By: #### B 12FOL, VITAD, IRON #### [facility] [address] [place] [address] Dr. Ekta Funk EGFR-AF S[place] 38 mL/min/1.73m2 Critically low >=60 [facility] Comment on above: Performed By: #### B 12FOL, VITAD, IRON #### [facility] [address] [place] [address] Dr. Ekta Funk EGFR-NON AF [place] 31 mL/min/1.73m2 Critically low >=60 [facility] Comment on above: Performed By: #### B 12FOL, VITAD, IRON #### [facility] [address] [place] [address] Dr. Ekta Funk Glucose [Mass/Vol] 134 mg/dL Critically high 74-106 [facility] Comment on above: Performed By: #### B 12FOL, VITAD, IRON #### [facility] [address] [address] [address] Ekta Funk Potassium [Moles/Vol] 5.3 mmol/L Critically high 3.5-5.1 [facility] Comment on above: Performed By: #### B 12FOL, VITAD, IRON #### [facility] [address] [address] [address] Ekta Funk Sodium [Moles/Vol] 139 mmol/L Normal 136-145 [facility] Comment on above: Performed By: #### B 12FOL, VITAD, IRON #### [facility] [address] [address] [address] Ekta Funk Urea nitrogen [Mass/Vol] 37.0 mg/dL Critically high 7.0-18.0 [facility] Comment on above: Performed By: #### B 12FOL, VITAD, IRON #### [facility] [address] [place] [address] Dr. Ekta Funk Urea nitrogen/Creatinine [Mass ratio] 22.8 mg/mg Normal [facility] Comment on above: Performed By: #### B 12FOL, VITAD, IRON #### [facility] [address] [address] [address] Ekta Funk TROPONIN, HIGH SENSITIVITYon 10-19-2022 HSTROP 53.2 pg/mL Critically high 4.0-51.3 [facility] Comment on above: Result Comment: CUT- OFF POINTS HAVE BEEN ESTABLISHED BASED ON THE FOURTH UNIVERSAL DEFINITIONS OF MYOCARDIAL INFARCTION. THE UPPER REFERENCE LIMIT (URL) OF TROPONIN, DEFINED THE 99TH PERCENTILE OF cTnI DISTRIBUTION IN A REFERENCE POPULATION, HAS BEEN CONFIRMED THE DECISION THRESHOLD FOR [place] DIAGNOSIS. Performed By: #### B 12FOL, VITAD, IRON #### [facility] [address] [place] [address] Dr. Ekta Funk BNPon 10-18-2022 Natriuretic peptide B (Bld) [Mass/Vol] 1386.0 pg/mL Critically high <=900.0 [facility] Comment on above: Performed By: #### C VDTBH #### [facility] [address] [place] [address] Dr. Ekta Funk CARDIAC BRITTANIE ADMITon 023 CK [Catalytic activity/Vol] 34 U/L Normal 26-192 [facility] Comment on above: Performed By: #### C VDTBH #### [facility] [address] [place] [address] Dr. Ekta Funk CK.MB [Mass/Vol] 1.43 ng/mL Normal <=3.60 [facility] Comment on above: Performed By: #### C VDTBH #### [facility] [address] [place] [address] Dr. Ekta Funk HSTROP 74.1 pg/mL Critically high 4.0-51.3 [facility] Comment on above: Result Comment: CUT- OFF POINTS HAVE BEEN ESTABLISHED BASED ON THE FOURTH UNIVERSAL DEFINITIONS OF MYOCARDIAL INFARCTION. THE UPPER REFERENCE LIMIT (URL) OF TROPONIN, DEFINED THE 99TH PERCENTILE OF cTnI DISTRIBUTION IN A REFERENCE POPULATION, HAS BEEN CONFIRMED THE DECISION THRESHOLD FOR [place] DIAGNOSIS. Performed By: #### C VDTBH #### [facility] [address] [place] [address] Dr. Ekta Funk EVELYN 52 ng/mL Normal 9-82 [facility] Comment on above: Performed By: #### C VDTBH #### [facility] [address] [place] [address] Dr. Ekta Funk CBC AUTO DIFFon 10-18-2022 BASO # 0.0 103/ul Normal 0.0-0.1 [facility] Comment on above: Performed By: #### C BC #### [facility] [address] [place] [address] Dr. Ekta Funk Basophils/100 WBC (Bld) 0.3 % Normal 0.2-2.0 [facility] Comment on above: Performed By: #### C BC #### [facility] [address] [place] [address] Dr. Ekta Funk EO # 0.1 103/ul Normal 0.0-0.7 [facility] Comment on above: Performed By: #### C BC #### [facility] [address] [place] [address] Dr. Ekta Funk Eosinophils/100 WBC (Bld) 0.9 % Normal 0.9-7.0 [facility] Comment on above: Performed By: #### C BC #### [facility] [address] [place] [address] Dr. Ekta Funk Erythrocyte distribution width (RBC) [Ratio] 13.2 % Normal 11.0-15.0 [facility] Comment on above: Performed By: #### C BC #### [facility] [address] [place] [address] Dr. Ekta Funk Hematocrit (Bld) [Volume fraction] 38.9 % Normal 36.0-48.0 [facility] Comment on above: Performed By: #### C BC #### [facility] [address] [place] [address] Dr. Ekta Funk Hemoglobin (Bld) [Mass/Vol] 12.4 g/dL Normal 12.0-16.0 [facility] Comment on above: Performed By: #### C BC #### [facility] [address] [place] [address] Dr. Ekta Funk IG # 0.08 10e3/ul Critically high 0.00-0.03 [facility] Comment on above: Performed By: #### C BC #### [facility] [address] [place] [address] Dr. Ekta Funk IG % 0.5 % Normal 0.0-0.5 [facility] Comment on above: Performed By: #### C BC #### [facility] [facility] [address] [place] [address] Dr. Ekta Funk LYMPH # 1.4 103/ul Normal 1.2-3.8 [facility] Comment on above: Performed By: #### C BC #### [facility] [address] [place] [address] Dr. Ekta Funk Lymphocytes/100 WBC (Bld) 9.6 % Critically low 20.5-60.0 [facility] Comment on above: Performed By: #### C BC #### [facility] [address] [place] [address] Dr. Ekta Funk MANUAL DIFF REQ NO Normal [facility] Comment on above: Performed By: #### C BC #### [facility] [address] [place] [address] Dr. Ekta Funk MCH (RBC) [Entitic mass] 32.3 pg Normal 26.7-34.0 [facility] Comment on above: Performed By: #### C BC #### [facility] [address] [place] [address] Dr. Ekta Funk MCHC (RBC) [Mass/Vol] 31.9 g/dL Normal 29.9-35.2 [facility] Comment on above: Performed By: #### C BC #### [facility] [address] [place] [address] Dr. Ekta Funk MCV (RBC) [Entitic vol] 101.3 fL Critically high 81.0-99.0 [facility] Comment on above: Performed By: #### C BC #### [facility] [address] [place] [address] Dr. Ekta Funk MONO # 0.9 103/ul Critically high 0.3-0.8 [facility] Comment on above: Performed By: #### C BC #### [facility] [address] [place] [address] Dr. Ekta Funk Monocytes/100 WBC (Bld) 6.3 % Normal 1.7-12.0 [facility] Comment on above: Performed By: #### C BC #### [facility] [address] [place] [address] Dr. Ekta Funk NEUT # 12.0 103/ul Critically high 1.4-6.5 [facility] Comment on above: Performed By: #### C BC #### [facility] [address] [place] [address] Dr. Ekta Funk Neutrophils/100 WBC (Bld) 82.4 % Critically high 43.0-75.0 [facility] Comment on above: Performed By: #### C BC #### [facility] [address] [place] [address] Dr. Ekta Funk Platelet mean volume (Bld) [Entitic vol] 9.7 fL Normal 9.5-13.5 [facility] Comment on above: Performed By: #### C BC #### [facility] [address] [place] [address] Dr. Ekta Funk PLT 176 103/ul Normal 150-450 [facility] Comment on above: Performed By: #### C BC #### [facility] [address] [place] [address] Dr. Ekta Funk RBC 3.84 106/ul Critically low 4.20-5.40 [facility] Comment on above: Performed By: #### C BC #### [facility] [address] [place] [address] Dr. Ekta Funk WBC 14.6 103/ul Critically high 4.0-11.0 [facility] Comment on above: Performed By: #### C BC #### [facility] [address] [place] [address] Dr. Ekta Funk FREE THYROXINE INDEX T7on FTI 2.34 Normal 1.30-4.50 [facility] Comment on above: Performed By: #### C VDTBH #### [facility] [address] [place] [address] Dr. Ekta Funk T3U 36.0 % Normal 30.0-39.0 [facility] Comment on above: Performed By: #### C VDTBH #### [facility] [address] [place] [address] Dr. Ekta Funk T4 [Mass/Vol] 6.50 ug/dL Normal 4.80-13.90 [facility] Comment on above: Performed By: #### C VDTBH #### [facility] [address] [place] [address] Dr. Ekta Funk GLYCOHEMOGLOBIN A1Con 2022 ADA RECOMMENDATION SEE BELOW Normal [facility] Comment on above: Result Comment: ADA RECOMMENDED LIMIT 4.0 - 6.0 ADA THERAPEUTIC TARGET < 7.0 ACTION SUGGESTED > 7.0 Performed By: #### B 12FOL, VITAD, IRON #### [facility] [address] [address] [address] Ekta Funk Glucose [Mass/Vol] 140 mg/dL Normal [facility] Comment on above: Performed By: #### B 12FOL, VITAD, IRON #### [facility] [address] [address] [address] Ekta Funk HbA1c (Bld) [Mass fraction] 6.5 % Critically high 4.5-6.2 [facility] Comment on above: Performed By: #### B 12FOL, VITAD, IRON #### [facility] [address] [address] [address] Ekta Funk IRONon 10-18-2022 Iron [Mass/Vol] 62.0 ug/dL Normal 50.0-170.0 [facility] Comment on above: Performed By: #### B 12FOL, VITAD, IRON #### [facility] [address] [place] [address] Dr. Ekta Funk LIPID PROFILEon 10-18-2022 CHOL-HDL RATIO NORM SEE BELOW Normal [facility] Comment on above: Result Comment: 3.3 - 4.4 LOW RISK 4.4 - 7.1 AVERAGE RISK 7.1 - 11.0 MODERATE RISK >11.0 HIGH RISK Performed By: #### C VDTBH #### [facility] [address] [place] [address] Dr. Ekta Funk Cholesterol [Mass/Vol] 242 mg/dL Critically high <=200 [facility] Comment on above: Performed By: #### C VDTBH #### [facility] [address] [place] [address] Dr. Ekta Funk Cholesterol in HDL [Mass/Vol] 74 mg/dL Critically high 40-60 [facility] Comment on above: Performed By: #### C VDTBH #### [facility] [address] [place] [address] Dr. Ekta Funk Cholesterol in LDL [Mass/Vol] 139.4 mg/dL Normal [facility] Comment on above: Performed By: #### C VDTBH #### [facility] [address] [address] [address] Ekta Funk Cholesterol.total/Chol esterol in HDL [Mass ratio] 3.3 {ratio} Normal [facility] Comment on above: Performed By: #### C VDTBH #### [facility] [address] [address] [address] Ekta Funk HDL NORMAL > or = 60 mg/dl - LOW CARDIOVASCULAR RISK <40 mg/dl - HIGH CARDIOVASCULAR RISK Normal [facility] Comment on above: Performed By: #### C VDTBH #### [facility] [address] [place] [address] Dr. Ekta Funk LDL CALC NORMAL SEE BELOW Normal [facility] Comment on above: Result Comment: <100 mg/dl OPTIMAL 100 - 129 mg/dl NEAR OR ABOVE OPTIMAL 130 - 159 mg/dl BORDERLINE HIGH 160 - 189 mg/dl HIGH >190 mg/dl VERY HIGH Performed By: #### C VDTBH #### [facility] [address] [place] [address] Dr. Ekta Funk Triglyceride [Mass/Vol] 143 mg/dL Normal <=150 [facility] Comment on above: Performed By: #### C VDTBH #### [facility] [address] [place] [address] Dr. Ekta Funk VLDL CALC 28.6 mg/dL Normal [facility] Comment on above: Performed By: #### C VDTBH #### [facility] [address] [place] [address] Dr. Ekta Funk PROF 14(COMP METB)on 023 Albumin [Mass/Vol] 2.8 g/dL Critically low 3.4-5.0 [facility] Comment on above: Performed By: #### C VDTBH #### [facility] [address] [place] [address] Dr. Ekta Funk Albumin/Globulin [Mass ratio] 0.7 {ratio} Normal [facility] Comment on above: Performed By: #### C VDTBH #### [facility] [address] [place] [address] Dr. Ekta Funk ALP [Catalytic activity/Vol] 90 U/L Normal 46-116 [facility] Comment on above: Performed By: #### C VDTBH #### [facility] [address] [place] [address] Dr. Ekta Funk ALT [Catalytic activity/Vol] 26 U/L Normal 14-59 [facility] Comment on above: Performed By: #### C VDTBH #### [facility] [address] [place] [address] Dr. Ekta Funk Anion gap [Moles/Vol] 14.5 mmol/L Normal [facility] Comment on above: Performed By: #### C VDTBH #### [facility] [address] [place] [address] Dr. Ekta Funk AST [Catalytic activity/Vol] 14 U/L Critically low 15-37 [facility] Comment on above: Performed By: #### C VDTBH #### [facility] [address] [place] [address] Dr. Ekta Funk Bilirubin [Mass/Vol] 0.4 mg/dL Normal 0.2-1.0 [facility] Comment on above: Performed By: #### C VDTBH #### [facility] [address] [place] [address] Dr. Ekta Funk Calcium [Mass/Vol] 8.9 mg/dL Normal 8.5-10.1 [facility] Comment on above: Performed By: #### C VDTBH #### [facility] [address] [place] [address] Dr. Ekta Funk Chloride [Moles/Vol] 106 mmol/L Normal 98-107 [facility] Comment on above: Performed By: #### C VDTBH #### [facility] [address] [place] [address] Dr. Ekta Funk CO2 [Moles/Vol] 23.5 mmol/L Normal 21.0-32.0 [facility] Comment on above: Performed By: #### C VDTBH #### [facility] [address] [place] [address] Dr. Ekta Funk Creatinine [Mass/Vol] 1.70 mg/dL Critically high 0.55-1.02 [facility] Comment on above: Performed By: #### C VDTBH #### [facility] [address] [address] [address] Ekta Funk EGFR-AF SOUTH [place]OREAN 36 mL/min/1.73m2 Critically low >=60 [facility] Comment on above: Performed By: #### C VDTBH #### [facility] [address] [address] [address] Ekta Funk EGFR-NON AF [place] 29 mL/min/1.73m2 Critically low >=60 [facility] Comment on above: Performed By: #### C VDTBH #### [facility] [address] [place] [address] Dr. Ekta Funk Globulin (S) [Mass/Vol] 4.0 g/dL Normal [facility] Comment on above: Performed By: #### C VDTBH #### [facility] [address] [place] [address] Dr. Ekta Funk Glucose [Mass/Vol] 99 mg/dL Normal 74-106 [facility] Comment on above: Performed By: #### C VDTBH #### [facility] [address] [place] [address] Dr. Ekta Funk Potassium [Moles/Vol] 5.0 mmol/L Normal 3.5-5.1 [facility] Comment on above: Performed By: #### C VDTBH #### [facility] [address] [place] [address] Dr. Ekta Funk Protein [Mass/Vol] 6.8 g/dL Normal 6.4-8.2 [facility] Comment on above: Performed By: #### C VDTBH #### [facility] [address] [place] [address] Dr. Ekta Funk Sodium [Moles/Vol] 139 mmol/L Normal 136-145 [facility] Comment on above: Performed By: #### C VDTBH #### [facility] [address] [place] [address] Dr. Ekta Funk Urea nitrogen [Mass/Vol] 36.0 mg/dL Critically high 7.0-18.0 [facility] Comment on above: Performed By: #### C VDTB #### [facility] [address] [place] [address] Dr. Ekta Funk Urea nitrogen/Creatinine [Mass ratio] 21.2 mg/mg Normal [facility] Comment on above: Performed By: #### C VDTBH #### [facility] [address] [address] [address] Ekta Funk TSHon 10-18-2022 TSH 0.910 uIU/mL Normal 0.358-3.740 [facility] Comment on above: Performed By: #### C VDTB #### [facility] [address] [place] [address] Dr. Ekta Funk Covid-19 PCR ([facility])on 09-10 SARS-CoV-2 (COVID-19) RNA GANESH+probe Ql (Unsp spec) Detected Abnormal NOT DETECTED [facility] Comment on above: Result Comment: This test is not yet approved or cleared by the [place] FDA. When there are no FDA-approved or cleared tests available, and other criteria are met, FDA can make tests available under an emergency access mechanism called an Emergency Use Authorization (EUA). The EUA for this test is supported by the Public Health Sanitarian Technician of Health and Human Service's declaration that [...] be used). Performed By: #### C #### [facility] [address] [place] [address] Dr. Ekta Funk INFLUENZA A AND B AGon 09-25 INFLUANEGH SEE BELOW Normal [facility] Comment on above: Result Comment: Nega tive for Flu A protein angiten. Infection due to Flu A cannot be ruled out. Flu A angiten in the sample may be below the detection limit of the test. Performed By: #### B 12FOL, VITAD, IRON #### [facility] [address] [address] [address] Ekta Funk [facility] SEE BELOW Normal [facility] Comment on above: Result Comment: Nega tive for Flu B protein antigen. Infection due to Flu B cannot be ruled out. Flu B antigen in the sample may be below the detection limit of the test. Performed By: #### B 12FOL, VITAD, IRON #### [facility] [address] [address] [address] Ekta Funk INFLUENZA A AG Negative Normal NEGATIVE SEE COMMENT [facility] Comment on above: Performed By: #### B 12FOL, VITAD, IRON #### [facility] [address] [place] [address] Dr. Ekta Funk INFLUENZA B AG Negative Normal NEGATIVE SEE COMMENT [facility] Comment on above: Performed By: #### B 12FOL, VITAD, IRON #### [facility] [address] [address] [address] Ekta Funk US CAROTID ART BILon [...] GODWIN BECK Date: 2022-05-26 16:06 Normal [facility] MRI BRAIN WO CONon 2 MRI [...] MARIE Date: 2022-05-25 10:45 Normal [facility] ECHOCARDIO M/2D COMPLETEon 0 05-24-2022 ECHOCARDIO M/2D COMPLETE Patient: SHEILA MAC Exam Date: 05/24/2022 : 1950 Gender:F Ordering : DR KRZYSZTOF HARP . Admission #: [id number] Family : Order #: [id number] CLICK HERE TO VIEW EXAM ECHOCARDIOGRAM REPORT [...] M.D. on 05/24/2022 at 14:45 Normal [facility] BASIC METABOLIC PANELon 03- Calcium mass conc 9.4 mg/dL Normal 8.6-10.3 [facility] Comment on above: Order Comment: No: D o not add to previous draw Performed By: #### 0 0071 #### [facility] [address] [place] [address], [place] Chloride molar conc 108 mmol/L High 98-107 [facility] Comment on above: Order Comment: No: D o not add to previous draw Performed By: #### 0 0071 #### [facility] [address] [place] [address], [place] CO2 molar conc 22 mmol/L Normal 21-31 [facility] Comment on above: Order Comment: No: D o not add to previous draw Performed By: #### 0 0071 #### [facility] [address] [place] [address], [place] Creatinine mass conc 1.18 mg/dL Normal 0.60-1.20 The [facility] Comment on above: Order Comment: No: D o not add to previous draw Performed By: #### 0 0071 #### [facility] [address] [place] [address], [place] GFR/1.73 sq M predicted among blacks MDRD vol rate/area (S/P/Bld) 55 ml/min/1.73sq m Abnormal >60 [facility] Comment on above: Order Comment: No: D o not add to previous draw Performed By: #### 0 0071 #### [facility] [address] [place] [address], [place] GFR/1.73 sq M predicted among non-blacks MDRD vol rate/area (S/P/Bld) 45 ml/min/1.73sq m Abnormal >[address] [facility] Comment on above: Order Comment: No: D o not add to previous draw Performed By: #### 0 0071 #### [facility] [address] [place] [address], [facility] Glucose mass conc 166 mg/dL High 70-100 [facility] Comment on above: Order Comment: No: D o not add to previous draw Performed By: #### 0 0071 #### [facility] [address] [place] [address], [facility] Potassium molar conc 4.1 mmol/L Normal 3.5-5.1 The [facility] Comment on above: Order Comment: No: D o not add to previous draw Performed By: #### 0 0071 #### [facility] [address] [place] [address], [facility] Sodium molar conc 140 mmol/L Normal 136-145 [facility] Comment on above: Order Comment: No: D o not add to previous draw Performed By: #### 0 0071 #### [facility] [address] [place] [address], [facility] Urea nitrogen mass conc 21 mg/dL Normal 7-25 The [facility] Comment on above: Order Comment: No: D o not add to previous draw Performed By: #### 0 0071 #### [facility] [address] [place] [id number], [facility] CBC COMPLETE BLOOD COUNTon 0 - Erythrocyte distribution width Ratio (RBC) 12.9 % Normal 11.5-15.0 The [facility] Comment on above: Order Comment: No: D o not add to previous draw Performed By: #### 5 [id number] #### [facility] [address] [place] [address], [facility] Hematocrit Volume Fraction (Bld) 36.7 % Normal 36.0-45.0 The [facility] Comment on above: Order Comment: No: D o not add to previous draw Performed By: #### 5 0608 #### [facility] [address] [place] [address], [facility] Hemoglobin mass conc (Bld) 12.4 g/dL Normal 12.0-15.0 The [facility] Comment on above: Order Comment: No: D o not add to previous draw Performed By: #### 5 0608 #### [facility] [address] [facility] Entitic mass (RBC) 31.2 pg Normal 27.0-33.0 Th e [facility] Comment on above: Order Comment: No: D o not add to previous draw Performed By: #### 5 0608 #### [facility] [address] MCHC mass conc (RBC) 33.8 g/dL Normal 32.0-35.0 The [facility] Comment on above: Order Comment: No: D o not add to previous draw Performed By: #### 5 0608 #### [facility] [address] [facility]. [address] MCV Entitic volume (RBC) 92.4 fL Normal 82.0-98.0 [facility] Comment on above: Order Comment: No: D o not add to previous draw Performed By: #### 5 0608 #### [facility] [address] [facility]. [address] Nucleated RBC/100 WBC Ratio (Bld) 0 % Normal 0-0 The [facility] Comment on above: Order Comment: No: D o not add to previous draw Performed By: #### 5 0608 #### [facility] [address] [facility] [place] [place] [address], [facility] PLAT CNT 227 10*3/uL Normal 150-400 The [facility] Comment on above: Order Comment: No: D o not add to previous draw Performed By: #### 5 0608 #### [facility] [address] [place] [address], [facility] RBC #/vol (Bld) 3.97 10*6/uL Normal 3.80-5.00 The [facility] Comment on above: Order Comment: No: D o not add to previous draw Performed By: #### 5 0608 #### [facility] [address] WBC #/vol (Bld) 5.55 10*3/uL Normal 4.00-10.60 The [facility] Comment on above: Order Comment: No: D o not add to previous draw Performed By: #### 5 [id number] #### [facility] [address] Cardiovascular Lab Reporton 11-20-2018 Cardiovascular Lab Report [facility] Patient Name: Bubba [facility] Sheila MR #: [id number] Department of Physician: Bong Gaspar M.D. Division of Service Date: 11/20/2018 Cardiology Birthdate: 1950 Adult Cardiovascular Room #: [address]AB [id number] [place] [address] Cardiovascular Laboratory Report INDICATION: The patient is a 68-year-old woman who was evaluated in Cardiology Clinic because of new onset symptoms of shortness of breath on mild exertion. Her stress test showed evidence of vjejb-fa-fryfiyoj area of inferoapical ischemia; because of that, she was referred for cardiac catheterization. PROCEDURES: 1. Right heart catheterization. 2. Bilateral selective coronary angiography. 3. Limited right femoral angiography. METHOD: Procedure was explained patient with risks and benefits. She signed informed consent. She was brought to labor contractor in a fasting state. The right groin area was prepped and draped in usual fashion. Using micropuncture technique, the right common femoral artery was accessed. The inner cannula was advanced. Limited femoral angiography was performed followed by upsizing to a 6-Andorran x 11 cm sheath. Access was also obtained using the same technique in the right common femoral vein and a 6-Andorran x 11 cm sheath was placed. A 6-Andorran Michel catheter was used for right heart catheterization with measurement of pressures and calculation of cardiac output using the estimated Ivory method. Michel catheter was removed. Bilateral selective coronary angiography was then performed using 6-Andorran JL4 and JR4 diagnostic catheters. Catheters were [...] Gaspar M.D. Date Trans: 11/20/2018 09:31 Blane/alvina [id number] cc: Krzysztof Harp M.D. [address] [facility] [address] Normal The [facility] BASIC METABOLIC PANELon 11-08 Calcium mass conc 9.5 mg/dL Normal 8.6-10.3 The [facility] Comment on above: Order Comment: No: D o not add to previous draw Performed By: #### 0 0071 #### [facility] [address] [place] [address], [place] Chloride molar conc 105 mmol/L Normal 98-107 The [facility] Comment on above: Order Comment: No: D o not add to previous draw Performed By: #### 0 0071 #### [facility] [address] [place] [address], [place] CO2 molar conc 24 mmol/L Normal 21-31 The [facility] Comment on above: Order Comment: No: D o not add to previous draw Performed By: #### 0 0071 #### [facility] [address] [place] [address], [place] Creatinine mass conc 1.42 mg/dL High 0.60-1.20 [facility] Comment on above: Order Comment: No: D o not add to previous draw Performed By: #### 0 0071 #### [facility] [address] [place] [address], [place] GFR/1.73 sq M predicted among blacks MDRD vol rate/area (S/P/Bld) 45 ml/min/1.73sq m Abnormal >60 The [facility] Comment on above: Order Comment: No: D o not add to previous draw Performed By: #### 0 0071 #### [facility] [address] [place] [address], [place] GFR/1.73 sq M predicted among non-blacks MDRD vol rate/area (S/P/Bld) 36 ml/min/1.73sq m Abnormal >[address] [facility] Comment on above: Order Comment: No: D o not add to previous draw Performed By: #### 0 0071 #### [facility] [address] [place] [address], [place] Glucose mass conc 86 mg/dL Normal 70-100 The [facility] Comment on above: Order Comment: No: D o not add to previous draw Performed By: #### 0 0071 #### [facility] [address] [place] [address], [facility] Potassium molar conc 4.2 mmol/L Normal 3.5-5.1 The [facility] Comment on above: Order Comment: No: D o not add to previous draw Performed By: #### 0 0071 #### [facility] [address] [place] [address], [facility] Sodium molar conc 138 mmol/L Normal 136-145 The [facility] Comment on above: Order Comment: No: D o not add to previous draw Performed By: #### 0 0071 #### [facility] [address] [place] [address], [facility] Urea nitrogen mass conc 19 mg/dL Normal 7-25 The [facility] Comment on above: Order Comment: No: D o not add to previous draw Performed By: #### 0 0071 #### [facility] [address] [place] [address], [facility] CBC COMPLETE BLOOD COUNTon 0 - Erythrocyte distribution width Ratio (RBC) 13.0 % Normal 11.5-15.0 The [facility] Comment on above: Order Comment: No: D o not add to previous draw Performed By: #### [id number] #### [facility] [address] [place] [address], [facility] Hematocrit Volume Fraction (Bld) 38.3 % Normal 36.0-45.0 [facility] Comment on above: Order Comment: No: D o not add to previous draw Performed By: #### [id number] #### [facility] [address] [place] [address], [facility] Hemoglobin mass conc (Bld) 12.6 g/dL Normal 12.0-15.0 [facility] Comment on above: Order Comment: No: D o not add to previous draw Performed By: #### [id number] #### [facility] [address] [place] [address], [facility] MCH Entitic mass (RBC) 31.1 pg Normal 27.0-33.0 Th e [facility] Comment on above: Order Comment: No: D o not add to previous draw Performed By: #### [id number] #### [facility] [address] [place] [address], [facility] MCHC mass conc (RBC) 32.9 g/dL Normal 32.0-35.0 [facility] Comment on above: Order Comment: No: D o not add to previous draw Performed By: #### [id number] #### [facility] [address] MCV Entitic volume (RBC) 94.6 fL Normal 82.0-98.0 [facility] Comment on above: Order Comment: No: D o not add to previous draw Performed By: #### [id number] #### [facility] [address] [facility] Nucleated RBC/100 WBC Ratio (Bld) 0 % Normal 0-0 [facility] Comment on above: Order Comment: No: D o not add to previous draw Performed By: #### [id number] #### [facility] [address] [place] [address], [facility] PLAT CNT 266 10*3/uL Normal 150-400 The [facility] Comment on above: Order Comment: No: D o not add to previous draw Performed By: #### [id number] #### [facility] [address] [facility] [address], [facility] RBC #/vol (Bld) 4.05 10*6/uL Normal 3.80-5.00 The [facility] Comment on above: Order Comment: No: D o not add to previous draw Performed By: #### [id number] #### [facility] 3000 [facility]. [address] WBC #/vol (Bld) 9.01 10*3/uL Normal 4.00-10.60 The [facility] Comment on above: Order Comment: No: D o not add to previous draw Performed By: #### [id number] #### [facility] 3000 [facility]. [address] PROTHROMBIN TIMEon 9 INR Coag RelTime (PPP) 1.07 {INR} Normal 0.91-1.16 Th e [facility] Comment on above: Order Comment: No: D o not add to previous draw Result Comment: ACCC P RECOMMENDED INR FOR WARFARIN THERAPY --------- ------- CONDITION INR PROPHYLAXIS OF VENOUS THROMBOSIS 2-3 (HIGH-RISK SURGERY) TREATMENT OF VENOUS THROMBOSIS 2-3 TREATMENT OF PULMONARY EMBOLISM 2-3 PREVENTION OF SYSTEMIC EMBOLISM: 2-3 ACUTE MYOCARDIAL INFARCTION TISSUE HEART VALVES VALVULAR HEART DISEASE ATRIAL FIBRILLATION RECURRENT SYSTEMIC EMBOLISM MECHANICAL HEART VALVE 2.5-3.5 FROM: ORAL ANTICOAGULANTS. MECHANISM OF ACTION, CLINICAL EFFECTIVENESS, AND OPTIMAL THERAPEUTIC RANGE. CHEST 1995;108:231S-246S. Performed By: #### 5 [id number] #### [facility] [address] Prothrombin time (PT) Coag time (PPP) 13.9 s Normal 12.3-14.8 [facility] Comment on above: Order Comment: No: D o not add to previous draw Result Comment: ALL RESULTS MUST BE INTERPRETED WITH RESPECT TO BLOOD DRAWING ARTIFACT OR DILUTION ERROR OF ANTICOAGULANT AT THE TIME OF SAMPLING. Performed By: #### 5 [id number] #### [address] Vital Signs Date Time Vital Sign Value Performing Clinician Joel mcclellan 12-25-2024 10:07-0400 Body height 162.6 cm Kaitlin Carcamo REPRESENTATIVE GOVERNMENT RELATIONS-SPED TEACHER Work Phone: [employer] 12-25-2024 10:07-0400 Body mass index (BMI) [Ratio] 21.7 kg/m2 Kaitlin Carcamo REPRESENTATIVE GOVERNMENT RELATIONS-SPED TEACHER Work Phone: [facility] 12-25-2024 10:07-0400 Body weight 57.34 kg Kaitlin Carcamo REPRESENTATIVE GOVERNMENT RELATIONS-SPED TEACHER Work Phone: [facility] 12-25-2024 10:07-0400 Diastolic blood pressure 99 mm[Hg] Kaitlin Carcamo REPRESENTATIVE GOVERNMENT RELATIONS-SPED TEACHER Work Phone: [facility] 12-25-2024 10:07-0400 Heart rate 89 /min Kaitlin Carcamo REPRESENTATIVE GOVERNMENT RELATIONS-SPED TEACHER Work Phone: [facility] 12-25-2024 10:07-0400 Systolic blood pressure 157 mm[Hg] Kaitlin Carcamo REPRESENTATIVE GOVERNMENT RELATIONS-SPED TEACHER Work Phone: [facility] 08-11-2024 14:21-0500 Body mass index (BMI) [Ratio] 23.52 kg/m2 [employer] Work Phone: [facility] [employer] 08-11-2024 14:21-0500 Body weight 60.24 kg ChristAlchemia Oncologyer [employer] DO Work Phone: [facility] [employer] 08-11-2024 14:21-0500 Diastolic blood pressure 82 mm[Hg] Hometicaer Shama [employer] Work Phone: [facility] [employer] 08-11-2024 14:21-0500 Heart rate 79 /min ChristAlchemia Oncologyer Shama DO Work Phone: [facility] [employer] 08-11-2024 14:21-0500 SaO2% (BldA) [Mass fraction] 97 % Christopher Shama DO Work Phone: [facility] 08-11-2024 14:21-0500 Systolic blood pressure 130 mm[Hg] Christopher Shama DO Work Phone: [facility] 07-22-2024 11:45-0500 Body height 162.6 cm Pmh 1 [facility] 07-22-2024 11:45-0500 Body mass index (BMI) [Ratio] 22.31 kg/m2 Pmh 1 [facility] 07-22-2024 11:45-0500 Body weight 58.97 kg Pmh 1 [facility] 07-16-2024 11:25-0500 Body height 162.6 cm Kaitlin Carcamo REPRESENTATIVE GOVERNMENT RELATIONS-SPED TEACHER Work Phone: [facility] 07-16-2024 11:25-0500 Body mass index (BMI) [Ratio] 22.49 kg/m2 Kaitlin Carcamo REPRESENTATIVE GOVERNMENT RELATIONS-SPED TEACHER Work Phone: [facility] 07-16-2024 11:25-0500 Body weight 59.42 kg Kaitlin Carcamo REPRESENTATIVE GOVERNMENT RELATIONS-SPED TEACHER Work Phone: [facility] 07-14-2024 13:28-0500 Body mass index (BMI) [Ratio] 23.52 kg/m2 Christopher Shama DO Work Phone: [facility] 07-14-2024 13:28-0500 Body weight 60.24 kg Christopher Shama DO Work Phone: [facility] 07-14-2024 13:28-0500 Diastolic blood pressure 101 mm[Hg] Christopher Shama DO Work Phone: [facility] 07-14-2024 13:28-0500 Heart rate 87 /min Christopher Shama DO Work Phone: [facility] 07-14-2024 13:28-0500 SaO2% (BldA) [Mass fraction] 91 % Christopher Shama DO Work Phone: [facility] 07-14-2024 13:28-0500 Systolic blood pressure 155 mm[Hg] Raven Sesay DO Work Phone: [facility] 03-26-2024 11:35-0400 Diastolic blood pressure 106 mm[Hg] MD Krzysztof Harp Work Phone: [facility] 03-26-2024 11:35-0400 Heart rate 76 /min MD Krzysztof Harp Work Phone: [facility] 03-26-2024 11:35-0400 Respiratory rate 18 /min MD Krzysztof Harp Work Phone: [facility] 03-26-2024 11:35-0400 SaO2% (BldA) [Mass fraction] 96 % MD Krzysztof Harp Work Phone: [facility] 03-26-2024 11:35-0400 Systolic blood pressure 152 mm[Hg] MD Krzysztof Harp Work Phone: [facility] 03-26-2024 10:24-0400 Body height 157.48 cm MD Krzysztof Harp Work Phone: [facility] 03-26-2024 10:24-0400 Body weight 62.14 kg MD Krzysztof Harp Work Phone: [facility] 02-19-2024 09:07-0400 Body height 157.48 cm MD Krzysztof Harp Work Phone: [facility] 02-19-2024 09:07-0400 Body mass index (BMI) [Ratio] 24.7 kg/m2 MD Krzysztof Harp Work Phone: [facility] 02-19-2024 09:07-0400 Body weight 61.23 kg MD Krzysztof Harp Work Phone: [facility] 02-19-2024 09:07-0400 Diastolic blood pressure 105 mm[Hg] MD Krzysztof Harp Work Phone: [facility] 02-19-2024 09:07-0400 Heart rate 60 /min MD Krzysztof Harp Work Phone: [facility] 02-19-2024 09:07-0400 Systolic blood pressure 146 mm[Hg] MD Krzysztof Harp Work Phone: [facility] 02-05-2024 13:37-0400 Diastolic blood pressure 47 mm[Hg] MD Krzysztof Harp Work Phone: [facility] 02-05-2024 13:37-0400 Heart rate 78 /min MD Krzysztof Harp Work Phone: [facility] 02-05-2024 13:37-0400 Respiratory rate 16 /min MD Krzysztof Harp Work Phone: [facility] 02-05-2024 13:37-0400 SaO2% (BldA) [Mass fraction] 97 % MD Krzysztof Harp Work Phone: [facility] 02-05-2024 13:37-0400 Systolic blood pressure 122 mm[Hg] MD Krzysztof Harp Work Phone: [facility] 02-05-2024 11:35-0400 Body height 157.48 cm MD Krzysztof Harp Work Phone: [facility] 02-05-2024 11:35-0400 Body temperature 99.1 [degF] MD Krzysztof Harp Work Phone: [facility] 02-05-2024 11:35-0400 Body weight 62.14 kg MD Krzysztof Harp Work Phone: [facility] Encounters Encounter Date Encounter Type Care Provider Facility Start: 02-26-2025 End: 02-26-2025 ambulatory Vasyl Chicas Facility:[facility] Start: 12-25-2024 End: 12-25-2024 Office outpatient visit 15 minutes Kaitlin Carcamo REPRESENTATIVE GOVERNMENT RELATIONS-SPED TEACHER Work Phone: [facility] Comment on above: Bright red blood per rectum (Primary Dx) Start: 12-25-2024 End: 12-25-2024 Orders Only Not In System Ref Prov [facility] Start: 08-11-2024 End: 08-11-2024 ambulatory RAVEN SESAY Not Available Start: 08-11-2024 End: 08-11-2024 Office outpatient visit 25 minutes Raven Sesay DO Work Phone: [facility] Comment on above: Left hand pain (Prim pérez Dx); Primary osteoarthritis of hand, unspecified laterality Start: 08-04-2024 End: 08-04-2024 Telephone encounter Angelica Dawson [facility] General Surgery Start: 07-28-2024 End: 07-28-2024 Evaluation and management of inpatient [facility] Start: 07-22-2024 End: 07-22-2024 ambulatory [facility] Pat Phone Call Provider 1 [facility] - Pre Admit Start: 07-22-2024 End: 07-22-2024 ambulatory KRZYSZTOF Marmolejo Alison [facility] Start: 07-17-2024 End: 07-17-2024 Bamboo flowsheet Raven Sesay DO Work Phone: [facility] [employer] [facility] Start: 07-17-2024 End: 07-17-2024 Bamboo flowsheet Raven Sesay DO Work Phone: [facility] [employer] [facility] Start: 07-17-2024 End: 07-17-2024 Patient encounter procedure Raven Sesay DO Work Phone: [facility] [employer] [facility] Comment on above: Cervical radiculopat hy (Primary Dx); Paresthesia Start: 07-17-2024 End: 07-17-2024 ambulatory RAVEN SESAY Not Available Start: 07-16-2024 End: 07-16-2024 Office outpatient new 30 minutes Kaitlin Carcamo REPRESENTATIVE GOVERNMENT RELATIONS-SPED TEACHER Work Phone: [facility] General Surgery Comment on above: Vomiting in adult (P rimary Dx); History of gastric ulcer; Chronic GERD; Hiatal hernia; Dysphagia, unspecified type Start: 07-16-2024 End: 07-16-2024 ambulatory KAITLIN CARCAMO [facility] Start: 07-15-2024 End: 07-15-2024 ambulatory CLEVE SHETH Not Available Start: 07-15-2024 End: 07-15-2024 Office outpatient visit 10 minutes Cleve Sheth DO Work Phone: [facility] Comment on above: Chronic right hip pa in (Primary Dx); Sacral insufficiency fracture with routine healing, subsequent encounter; Closed fracture of multiple pubic rami, right, initial encounter (CMS/[facility]) Start: 07-14-2024 End: 07-14-2024 Bamboo flowsheet Christopher Shama DO Work Phone: [facility] Start: 07-14-2024 End: 07-14-2024 Bamboo flowsheet Christopher Shama DO Work Phone: [facility] Start: 07-14-2024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 non-steroidal anti-inflammatory drugs and certain vitamins (Ibuprofen, Advil, Aleve, Excedrin, Meloxicam, Celebrex, fish/krill oil, etc.) for 7 days prior to surgery as instructed by your surgeon and/or your prescribing doctor. Tylenol IS ALLOWED. If you are on Ticlid, Xarelto, Eliquis, Pradaxa, Plavix or Coumadin, please check with your prescribing doctor for instructions for when to stop them. 7. If you use an inhaler, continue to use it routinely. 8. Nothing to eat or drink (not even water, gum, mints, or hard candy!) AFTER midnight prior to your surgery. 9. Take only medications that you are instructed to on the morning of surgery with a TINY SIP OF WATER. 10. Choose a responsible adult that will be able to drive you home when you are discharged from your hospital stay for your surgery and can stay with you in your home for 24 hours after your procedure. You must NOT drive any vehicle or operate any machinery for 24 hours after surgery. 11. When you dress for your appointment, please wear loose fitting clothing that is appropriate to accommodate your surgical area procedure. BRING WITH YOU ANY DEVICES YOU MAY NEED: CB hose, ice machine, sling/swath, brace or special shoe, oversized zip-up or button up shirt, CPAP machine if staying overnight. 12. Do NOT wear jewelry, watches, or any piercings or metal for surgery- leave these valuables and money at home. 13. Do NOT wear contact lenses for surgery- glasses are okay if needed. 14. The anesthesiologist will talk with you the day of surgery and will ask you to sign a Consent Form. 15. Refrain from smoking or any type of tobacco use for at least 8 hours and marijuana for 24 hours prior to arrival for your surgery. 16. If a GREEN BLOOD band is given to you, please bring it with you for the day of surgery. 17. Notify your surgeon if you develop any illness before your surgery. 18. If you are staying overnight, please DO NOT BRING your home medications with you. 19. If you have any questions prior to surgery, please call the Preadmission Testing office at [phone], Mon.-Fri. 7 a.m.-3 p.m. Leave a voicemail if needed. Pre-Surgery Instructions: Medication Instructions acetaminophen (TYLENOL) 500 mg tablet Stop taking 0 days prior to procedure aspirin 81 mg Stop taking 1 week prior to procedure atorvastatin (LIPITOR) 40 mg tablet Stop taking 0 days prior to procedure calcitonin, salmon, (MIACALCIN) 200 unit/actuation nasal spray Stop taking 0 days prior to procedure clopidogreL (PLAVIX) 75 mg tablet Check with prescribing doctor for instructions metoprolol tartrate (LOPRESSOR) 25 mg tablet Take morning of procedure pantoprazole (PROTONIX) 40 mg EC tablet Stop taking 0 days prior to procedure sucralfate (CARAFATE) 1 gram tablet Stop taking 0 days prior to procedure [facility] Nurse Note Preoperative Education Checklist- General Surgery date: 07/28/24 Surgery time: 914 Arrival time: 714 1. Bring a photo ID and your insurance card with you the day of surgery. You will check in at the main lobby of the [facility]- registration desk is straight ahead as soon as you walk in. Tell them you are here for surgery. 2. If you have a Living Will/Durable Power of Data Entry Assistant for Health Care that is not on file here, please bring a copy the day of surgery. 3. Please shower/bathe the night before surgery with the provided soap or wipes. Do not shower the morning of surgery- you will do use wipes when you arrive here at the hospital before getting into your surgical gown. Do not shave the area of your procedure for 2 days prior to your surgery. 4. NO powder, lotion, perfume/cologne, aftershave, make-up, deodorant, or hair products after you have bathed. 5. NO nail colombian/acrylic on at least one finger. If you are having a hand, wrist or foot surgery then all nail colombian and artificial/acrylic nails must be removed from that hand or foot. 6. Avoid ALL Aspirin and non-steroidal anti-inflammatory drugs and certain vitamins (Ibuprofen, Advil, Aleve, Excedrin, Meloxicam, Celebrex, fish/krill oil, etc.) for 7 days prior to surgery as instructed by your surgeon and/or your prescribing doctor. Tylenol IS ALLOWED. If you are on Ticlid, Xarelto, Eliquis, Pradaxa, Plavix or Coumadin, please check with your prescribing doctor for instructions for when to stop them. 7. If you use an inhaler, continue to use it routinely. 8. Nothing to eat or drink (not even water, gum, mints, or hard candy!) AFTER midnight prior to your surgery. 9. Take only medications that you are instructed to on the morning of surgery with a TINY SIP OF WATER. 10. Choose a responsible adult that will be able to drive you home when you are discharged from your hospital stay for your surgery and can stay with you in your home for 24 hours after your procedure. You must NOT drive any vehicle or operate any machinery for 24 hours after surgery. 11. When you dress for your appointment, please wear loose fitting clothing that is appropriate to accommodate your surgical area procedure. BRING WITH YOU ANY DEVICES YOU MAY NEED: CB hose, ice machine, sling/swath, brace or special shoe, oversized zip-up or button up shirt, CPAP machine if staying overnight. 12. Do NOT wear jewelry, watches, or any piercings or metal for surgery- leave these valuables and money at home. 13. Do NOT wear contact lenses for surgery- glasses are okay if needed. 14. The anesthesiologist will talk with you the day of surgery and will ask you to sign a Consent Form. 15. Refrain from smoking or any type of tobacco use for at least 8 hours and marijuana for 24 hours prior to arrival for your surgery. 16. If a GREEN BLOOD band is given to you, please bring it with you for the day of surgery. 17. Notify your surgeon if you develop any illness before your surgery. 18. If you are staying overnight, please DO NOT BRING your home medications with you. 19. If you have any questions prior to surgery, please call the Preadmission Testing office at [phone], Mon.-Fri. 7 a.m.-3 p.m. Leave a voicemail if needed. Pre-Surgery Instructions: Medication Instructions acetaminophen (TYLENOL) 500 mg tablet Stop taking 0 days prior to procedure aspirin 81 mg Stop taking 1 week prior to procedure atorvastatin (LIPITOR) 40 mg tablet Stop taking 0 days prior to procedure calcitonin, salmon, (MIACALCIN) 200 unit/actuation nasal spray Stop taking 0 days prior to procedure clopidogreL (PLAVIX) 75 mg tablet Check with prescribing doctor for instructions metoprolol tartrate (LOPRESSOR) 25 mg tablet Take morning of procedure pantoprazole (PROTONIX) 40 mg EC tablet Stop taking 0 days prior to procedure sucralfate (CARAFATE) 1 gram tablet Stop taking 0 days prior to procedure [facility] 07-17-2024 History of Presen t illness Narrative Images from the original note were not included. Reason for Appointment: EMG Patient: Sheila Mac : 1950 EMG Computer: [employer] [place] Referring Physician: Dr. 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 documented in this encounter [facility] 07-16-2024 History of Presen t illness Narrative Images from the original note were not included. Chief Complaint: Vomiting History of Present Illness Sheila Mac is a 74 y.o. female who presents to the office for vomiting. She states 2 weeks ago she had several episodes of vomiting. She was also nauseous and having abdominal pain. Her PCP gave her Zofran with relief. She has a history of chronic GERD. She reports daily heartburn and reflux despite taking pantoprazole and Carafate. She denies any hematemesis or black tarry stools. She also reports dysphagia. She was eating toast this morning and drank milk and it all came right back up. She states she has lost 6 lb due to symptoms. She drinks 1 Pepsi daily. She does not smoke. Her last EGD was in [address] Michelle. She has a known hiatal hernia. She has a history of gastric ulcer in 2017. She is on aspirin and Plavix for history of CVA. Review of Systems Constitutional: Negative for fever and unexpected weight change. HENT: Positive for trouble swallowing. Respiratory: Negative for shortness of breath. Cardiovascular: Negative for chest pain. Gastrointestinal: Positive for nausea, vomiting and abdominal pain. Negative for diarrhea, constipation, blood in stool and black tarry stool. Genitourinary: Negative for dysuria and difficulty urinating. Musculoskeletal: Negative for gait problem. Skin: Negative for rash and wound. Neurological: Negative for dizziness, weakness and light-headedness. Hematological: Does not bruise/bleed easily. Psychiatric/Behavioral: Negative for confusion. Past Medical History: Diagnosis Date COPD (chronic obstructive pulmonary disease) [place] Diverticulitis GERD (gastroesophageal reflux disease) Hyperlipidemia Hypertension Pancreatitis Peptic ulceration PONV (postoperative nausea and vomiting) Stroke ([facility] x2, patient states light strokes Visual impairment Past Surgical History: Procedure Laterality Date APPENDECTOMY BACK SURGERY LOWER CHOLECYSTECTOMY 2016 COLONOSCOPY COLONOSCOPY N/A 05/26/2021 Performed by Freeman Michelle DO at [facility] EGD N/A 10/01/2017 Performed by Freeman Michelle DO at [facility] ESOPHAGOGASTRODUODENOSCOPY ESOPHAGOGASTRODUODENOSCOPY N/A 05/26/2021 Performed by Freeman Michelle DO at [facility] HYSTERECTOMY KNEE ARTHROSCOPY Right patient denies sugery, states they were shots in both knees NECK SURGERY X2 TUBAL LIGATION Allergies Allergen Reactions Iodinated Contrast Media Anaphylaxis and Other (See Comments) Dye Swelling IV DYE Morphine Nausea And Vomiting and Vomiting Morpholine Analogues Vomiting Nsaids (Non-Steroidal Anti-Inflammatory Drug) GI Bleeding Penicillins Rash Current Outpatient Medications: acetaminophen (TYLENOL) 500 mg tablet, Take 1 tablet (500 mg total) by mouth every 6 (six) hours as needed for pain., Disp: , Rfl: aspirin 81 mg, Take 1 tablet (81 mg total) by mouth in the morning., Disp: , Rfl: atorvastatin (LIPITOR) 40 mg tablet, Take 1 tablet (40 mg total) by mouth in the morning., Disp: , Rfl: calcitonin, salmon, (MIACALCIN) 200 unit/actuation nasal spray, Administer 1 spray into alternating nostrils in the morning., Disp: , Rfl: clopidogreL (PLAVIX) 75 mg tablet, Take 1 tablet (75 mg total) by mouth in the morning., Disp: , Rfl: metoprolol tartrate (LOPRESSOR) 25 mg tablet, Take 1 tablet (25 mg total) by mouth in the morning., Disp: , Rfl: pantoprazole (PROTONIX) 40 mg EC tablet, Take 1 tablet (40 mg total) by mouth in the morning., Disp: , Rfl: sucralfate (CARAFATE) 1 gram tablet, Take 1 tablet (1 g total) by mouth in the morning and 1 tablet (1 g total) at noon and 1 tablet (1 g total) in the evening and 1 tablet (1 g total) before bedtime., Disp: , Rfl: Social History Socioeconomic History Marital status: Spouse name: Not on file Number of children: Not on file Years of education: Not on file Highest education level: Not on file Occupational History Not on file Tobacco Use Smoking status: Never Smokeless tobacco: Never Vaping Use Vaping status: Never Used Substance and Sexual Activity Alcohol use: No Drug use: No Sexual activity: Not Currently Partners: Male control/protection: Surgical Other Topics Concern Not on file Social History Narrative Not on file Social Drivers of Health Financial Resource Strain: Not on file Food Insecurity: No Food Insecurity (07/16/2024) Hunger Screening Food Insecurity - Worry: Never True Food Insecurity - Inability: Never True Transportation Needs: Not on file Physical Activity: Not on file Stress: Not on file Social Connections: Not on file Interpersonal Safety: Unknown (11/01/2023) Received from [facility] Safety & Environment Fear of Current or Ex-Partner: Not on file Emotionally Abused: Not on file Physically Abused: Not on file Sexually Abused: Not on file Physically or Sexually Abused: Not on file Housing Instability: Not on file Family History Problem Relation Age of Onset Heart disease Mother No Known Problems Father Objective Physical Exam Constitutional: General: She is not in acute distress. Appearance: Normal appearance. She is not ill-appearing. HENT: Head: Normocephalic and atraumatic. Mouth/Throat: Mouth: Mucous membranes are moist. Eyes: Pupils: Pupils are equal, round, and reactive to light. Cardiovascular: Rate and Rhythm: Normal rate. Pulmonary: Effort: Pulmonary effort is normal. No respiratory distress. Abdominal: General: There is no distension. Palpations: Abdomen is soft. Tenderness: There is no abdominal tenderness. There is no guarding. Musculoskeletal: General: Normal range of motion. Skin: General: Skin is warm and dry. Neurological: Mental Status: She is alert and oriented to person, place, and time. Mental status is at baseline. Vital Signs: Height 162.6 cm (5' 4 ), weight 59.4 kg (131 lb). Respiratory Source: No data recorded Admission Weight: Weight: 59.4 kg (131 lb) Labs No results found for: WBC , HGB , HCT , MCV , PLT No results found for: GLU , CALCIUM , NA , K , CO2 , CL , BUN , CREATININE No results found for: AMYLASE Lab Results Component Value Date LIPASE 45 09/26/2017 No results found for: ALT , AST , GGT , ALKPHOS , LABBILI No results found for: INR , PROTIME Imaging EGD 05/26/2021: Findings: The nasopharynx and oropharynx were normal. A medium-sized hiatal hernia was present. Scattered mild inflammation characterized by erythema, friability and granularity was found in the entire examined stomach. Biopsies were taken with a cold forceps for histology. The examined duodenum was normal. Estimated Blood Loss: Estimated blood loss: none. Impression: - Normal nasopharynx and oropharynx. - Medium-sized hiatal hernia. - Gastritis. Biopsied. - Normal examined duodenum. Final Pathologic Diagnosis Antrum biopsy: Gastric antral mucosa with slight reactive changes, suggestive of chemical or reactive gastropathy. No intestinal metaplasia or dysplasia. No Helicobacter pylori organisms are seen on routine sections. Assessment Vomiting Dysphagia Chronic GERD History of hiatal hernia History of gastric ulcer Plan Discussed eating small meals, not eating prior to bed, avoiding caffeine and carbonated beverages, maintaining healthy weight. Continue PPI and Carafate. Schedule EGD. Hold aspirin and Plavix 7 days prior. Evaluation included: Preparing to see the patient (e.g., review of tests) Obtaining and/or reviewing separately obtained history Performing a medically appropriate examination and/or evaluation Counseling and educating the patient/family/caregiver Referring and communicating with other health managed care provider Vomiting in adult [R11.10] [facility]YES [facility] [place] This note was created with the assistance of a speech recognition program. While intending to generate a timely document that accurately reflects the content of the visit, no guarantee can be provided that every grammatical or spelling mistake has been or will be identified or corrected. Thank you for your understanding. TAMIE Reyes 07/16/24 [id number] documented in this encounter [facility] 07-15-2024 History of Presen t illness Narrative Images from the original note were not included. HISTORY OF PRESENT ILLNESS: Sheila Mac is an 74 y.o. @ female. Chief complaint RT hip pain RT hip: using calcitonin NS Pt went to [facility] ER 06/13, X-rays done pelvis and lumbar. RX for lidoderm patches given, she states she could hardly walk. RT hip pain x 3-4 months, worsened on 05/31 after going to the grocery store. Denies injury. She had injections at [facility] in April without relief. She saw Dr Harp 06/02 and 06/04, given IM injections-no relief. She is walking better, using rollator. Mild ache in the thigh. Using pain spray daily Saw Dr Harp 06/02 and 06/04. XR done at [facility] 06/02/24. Using hot icy hot. Given IM torodol, Tramadol RX and PT ordered, XR [facility] 06/05/24, MRI [facility] 06/12/24, [facility] 06/13/24, lidoderm patches, calcitonin NS [...] IMAGING: June 05, 2024 x-rays from the [place] office AP pelvis and lateral of the right hip demonstrate an intact hip joint space. There are no fractures detected. The bone has an osteopenic appearance. The joint spaces are symmetric. There is no obvious effusion or soft tissue swelling. Impression: No acute findings on x-rays of the right hip Hemal Sehth D.O. MRI of the right hip from the [facility] center. There is a sacral insufficiency [...] of multiple pubic rami, right, initial encounter ([facility]) S32.591A calcitonin, salmon, (Miacalcin) 200 UNIT/ACT [...] Sheth/ashley Sheth D.O. documented in this encounter [facility] 07-14-2024 History of Presen t [...] headaches. Past Medical History: Diagnosis Date Diabetes ([facility]) Diverticulitis Gastric ulcer GERD (gastroesophageal reflux disease) HTN (hypertension) ([facility]/HCC) Osteoporosis (CMS/HCC) Pancreatitis Rheumatic fever Past Surgical History: Procedure Laterality Date APPENDECTOMY BACK SURGERY 1991 HEART CATH HM MAMMOGRAPHY 2012 HYSTERECTOMY Diabetes LUMBAR SPINE SURGERY NECK SURGERY OTHER SURGICAL HISTORY Sigmoid Diverticulosis OTHER SURGICAL HISTORY 2017 perforated ulcer AK ARTHRS KNE SURG W/MENISCECTOMY MED/LAT W/SHVG Right [...] , wrist extensors , wrist flexor , conference manager strength 5/5. LUE Strength deltoid , biceps , triceps , wrist extensors , wrist flexor , conference manager strength 5/5. RLE Strength illopsoas, quadriceps, tibialis [...] reflex 0 . Metzger's sign negative. Coordination: Htmtta-sw-gihg testing and rapid alternating movements are normal [...] and return instructions documented in this encounter [facility] 06-17-2024 History of Presen t illness Narrative Images from the original note were not included. HISTORY OF PRESENT ILLNESS: Sheila Mac is an 74 y.o. @ female. Chief complaint RT hip pain RT hip: here for MRI results [facility] 06/12/24 Pt went to [facility] ER 06/13, X-rays done pelvis and lumbar. RX for lidoderm patches given, she states she could hardly walk. RT hip pain x 2-3 months, worsened on 05/31 after going to the grocery store. Denies injury. She had injections at [facility] in April without relief. She saw [...] Harp 06/02 and 06/04. XR done at [facility] 06/02/24. Using hot icy hot. Given IM torodol, Tramadol RX and PT ordered, XR [facility] 06/05/24, MRI [facility] 06/12/24, [facility] 06/13/24, lidoderm patches I reviewed notes from [facility] emergency department dated June 13, 2024. [...] HISTORY: Past Medical History: Diagnosis Date Diabetes ([facility]) Diverticulitis Gastric ulcer GERD (gastroesophageal reflux disease) HTN (hypertension) ([facility]) Osteoporosis ([facility]) Pancreatitis Rheumatic fever ALLERGIES: Allergies Allergen [...] IMAGING: June 05, 2024 x-rays from the [place] [facility] AP pelvis and lateral of the [...] of the right hip from the [place] [facility]. There is a sacral insufficiency fracture and suspected insufficiency fractures of the right superior and inferior pubic rami. The right hip joint is intact and there are no fractures in the hip. There is loss of articular cartilage in the right hip consistent with arthritis. ASSESSMENT: ICD-10-CM 1. Chronic right hip pain M25.551 G89.29 2. Sacral insufficiency fracture, [place] M84.48XA 3. Closed fracture of multiple pubic rami, right, initial encounter [place] S32.591A calcitonin, salmon, (Miacalcin) 200 UNIT/ACT nasal [...] Sheth/ashley Sheth D.O. documented in this encounter [facility] 06-05-2024 History of Presen t illness Narrative Images from the original note were not included. HISTORY OF PRESENT ILLNESS: Sheila Mac is an 74 y.o. @ female. Chief complaint RT hip pain New problem: RT hip pain. Dr Harp referral. XR [facility] 06/03/24 RT hip pain x 2-3 months, worsened on 05/31 after going to the grocery store. Denies injury. She had injections at [facility] in April without relief. She saw Dr Harp 06/02 and 06/04, given IM injections-no relief. She is having difficulty walking, using a walker. Pain with WB. Pain in the buttock, hamstring and inner thigh. Pain can be aching and sharp. Difficulty with sit to stand. Pain 1/10 at rest, goes to 10+/10 with WB. 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 Taking TYL, using icy hot. Saw Dr Harp 06/02 and 06/04. XR done at [facility] 06/02/24. Using hot icy hot. Given [...] HISTORY: Past Medical History: Diagnosis Date Diabetes ([facility]) Diverticulitis Gastric ulcer GERD (gastroesophageal reflux [...] report of the right hip from the [facility] dated May of 2024 slight narrowing [...] Sheth/ashley Sheth D.O. documented in this encounter [facility] 06-05-2024 Telephone encounter Note $40.00 copay / Prior auth needed. [facility] 06-05-2024 Miscellaneous Notes $40.00 copay / Prior auth needed. documented in this encounter [facility] 03-26-2024 Procedure note [facility] 02-05-2024 Procedure note [facility] 12-15-2022 Note Cardiology Follow Up Progress Note [...] She will be (more content not included)... [facility] 12-15-2022 Note Review of Systems Cardiovascular: Positive for leg swelling. Respiratory: Positive for shortness of breath. Skin: Positive for color change. Neurological: Positive for headaches. All other systems reviewed and are negative. [facility] 07-25-2022 Note PROCEDURE: MRA NECK WO [...] by: DANIEL MARIE Date: 2022-07-25 13:25 [facility] 05-11-2022 Note PROCEDURE: XR FOOT L [...] by: DANIEL MARIE Date: 2022-05-11 12:51 [facility] 02-14-2022 Note PROCEDURE: XR KNEE L T 4V or > COMPARISON: None. HISTORY: Osteoarthritis FINDINGS: BONES:No fracture, acute abnormality, or significant arthropathy. SOFT TISSUES:Negative. No visible soft tissue swelling. EFFUSION:Moderate suprapatellar joint effusion OTHER: Negative. IMPRESSION: Moderate joint effusion Electronically authenticated by: GODWIN BECK Date: 2022-02-14 17:30 [facility] Evaluation note No assessment inform ation available [facility] Work Phone: Evaluation note Diagnosis Onset Date Duodenal diverticulum acute Hiatal hernia acute IBS (irritable bowel syndrome) acute Screening for colon [facility] Work Phone: Evaluation note* Diagnosis Chronic right hip pain- Primary Sacral insufficiency fracture, initial encounter ([facility]) Closed fracture of multiple pubic rami, right, initial encounter ([facility]) [facility] Diagnosis Paresthesia- Primary Disturbance of skin sensation [facility] Diagnosis Chronic right hip pain- Primary Sacral insufficiency fracture with routine healing, subsequent encounter Closed fracture of multiple pubic rami, right, initial encounter ([facility]) [facility] [...] pain- Primary [facility]* Diagnosis Vomiting in adult- Primary History of gastric ulcer Chronic GERD Hiatal hernia Diaphragmatic hernia without mention of obstruction or gangrene Dysphagia, unspecified type [facility] Diagnosis Bright red blood per rectum- Primary Hemorrhage of rectum and anus documented in this encounter [facility] Author Ben Sanchez [facility] February 05, 2024 1:08pm Note Date/Time February 05, 2024 1:08p akosua [facility] [address] [place] [address] Gastroenterology H&P Signed Patient: Sheila Mac MR#: [id number] : 1950 Acct:[id number] Age/Sex: 73 / F Adm Date: 4 Loc: Room: Type: [facility] Attending Dr: Ben Sanchez MD Copies [...] Ben Sanchez MD> 02/05/24 1308 [facility] Work Phone: History and physical note Author Ben Sanchez [facility] March 26, 2024 10:37am Note Date/Time March 26, 2024 10:3 7am [facility] [address] [place] [address] Gastroenterology H&P Signed Patient: Sheila Mac MR#: [id number] : 1950 Acct:[id number] Age/Sex: 73 / F Adm Date: 4 Loc: Room: Type: [facility] Attending Dr: Ben Sanchez MD Copies [...] signed by Ben Sanchez MD> 03/26/24 1037 [facility] Work Phone: InstructionsNot on filedocumented in this encounter [facility] filedocumented in this encounter [facility]ructionsNot on filedocumented in this encounter [facility]ructionsNot on filedocumented in this encounter [facility]* Attachments The following attachments cannot be sent through Care Everywhere. * Hemorrhoids (Mauritanian) documented in this encounterPro[facility] SystemReason for visit Narrative* Consultation (Routine) - Closed Specialty Diagnoses / Procedures Referred By Contac t Referred To Contact Neurology Diagnoses Brachial plexopathy Ulnar neuropathy of left upper extremity Procedures [place] OFFICE/OUTPATIENT [facility] 60 MINUTES Cleve Sheth, [address] [facility] [address] [place] [address] Phone: tel: fax: Daniel Patiño MD [address] [place] [address] Phone: tel: fax: Referral ID Status Reason Start Date Expiration Date V isits Requested Visits Authorized [id number] Closed Consult and Treat 2024 10/05/2024 1 [...] and content) DATE CREATED AUTHOR 11/24/2018 [facility] DATE CREATED AUTHOR AUTHOR'S ORGANIZ ATION 12/19/2022 [facility] DATE CREATED AUTHOR AUTHOR'S ORGANIZ ATION 01/18/2023 [facility] DATE CREATED AUTHOR AUTHOR'S ORGANIZ ATION 08/04/2024 [facility] DATE CREATED AUTHOR AUTHOR'S ORGANIZ ATION 08/12/2024 [facility] DATE CREATED AUTHOR AUTHOR'S ORGANIZ ATION 12/27/2024 [facility] DATE CREATED AUTHOR AUTHOR'S ORGANIZ ATION 03/01/2025 [facility] Care Teams (unrecognized sec tion and [...] Provide r Active Start: March 26, 2024 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 Start Date End Date Krzysztof Harp MD [address] [place] [phone] PCP - General Family Medicine 01/09/24 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 Start Date End Date Krzysztof Harp MD [address] [facility] [place] [address] PCP - General Family Medicine 01/09/24 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 Start Date End Date Krzysztof Harp MD [address] [facility] [place] [address] PCP - General Family Medicine 01/09/24 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 Start Date End Date Krzysztof Harp MD [address] [facility] [place] [address] PCP - General Family Medicine 01/09/24 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 Start Date End Date Krzysztof Harp MD [address] [facility] [place] [address] PCP - General Family Medicine 01/09/24 Raven Sesay DO [address] [id number] Referring Physician Neurology 07/14/24 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 Start Date End Date Krzysztof Harp MD [address] [facility] [place] [address] PCP - General Family Medicine 01/09/24 Raven Sesay DO [address] [address] Referring Physician Neurology 07/14/24 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 Start Date End Date Krzysztof Harp MD [address] [facility] [place] [address] PCP - General Family Medicine 01/09/24 Raven Sesay DO [address] [address] Referring Physician Neurology 07/14/24 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 Start Date End Date Krzysztof Harp MD [address] [place] [address] PCP - General Family Medicine 01/09/24 Raven Sesay DO [address] [address] Referring Physician Neurology 07/14/24 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 Start Date End Date Krzysztof Harp MD [address] [place] [phone] PCP - General Family Medicine 01/09/24 Raven Sesay DO [address] [address] Referring Physician Neurology 07/14/24 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 Reason Comments Follow-up Reason Comments Heartburn GERD, referred by Manish Luciano, SPED TEACHER Reason Comments Rectal Bleeding Rectal bleeding, las t colon with Dr. Sanchez at [facility] in 12/2023 FOR RECORDS PERTAINING TO PATIENTS WHO ARE [...] BE BASED ON THE PRIMARY CLINICAL RECORDS. [facility] [email or web address] [facility]. provides no warranty or guarantee of the accuracy or completeness of information in this document.
[2025-03-03 08:00] LABS: Basophils Absolute Auto 0.1 10^3/uL (0.0-0.1); Basophils Percent Auto 0.9 % (0.2-2.0); Eosinophils Percent Auto 10.8 % (0.9-7.0); Hematocrit 37.2 % (36.0-48.0); Hemoglobin 12.2 g/dL (12.0-16.0); Immature Granulocytes Abs Auto 0.02 10^3/uL (0.00-0.03); Immature Granulocytes Pct Auto 0.2 % (0.0-0.5); Lymphocytes Absolute Auto 3.3 10^3/uL (1.2-3.8); Lymphocytes Percent Auto 34.1 % (20.5-60.0); Mean Corpuscular HGB Conc 32.8 g/dL (29.9-35.2); Mean Corpuscular Hemoglobin 30.8 pg (26.7-34.0); Mean Corpuscular Volume 93.9 fL (81.0-99.0); Mean Platelet Volume 9.3 fL (9.5-13.5); Monocytes Absolute Auto 0.9 10^3/uL (0.3-0.8); Monocytes Percent Auto 9.8 % (1.7-12.0); Neutrophils Absolute Auto 4.3 10^3/uL (1.4-6.5); Neutrophils Percent Auto 44.2 % (43.0-75.0); Platelet Count 293 10^3/uL (150-450); Red Blood Count 3.96 10^6/uL (4.20-5.40); Red Cell Distribution Width 13.3 % (11.0-15.0); White Blood Count 9.6 10^3/uL (4.0-11.0)
[2025-03-03 08:04] LABS: Total Protein Urine Random 67.4 mg/dL (<=11.9)
[2025-03-03 08:10] LABS: Estimated Average Glucose 137 mg/dL; Glycohemoglobin A1C 6.4 % (4.5-6.2)
[2025-03-03 08:32] LABS: Alanine Aminotransferase 12 U/L (14-59); Albumin Globulin Ratio 0.6; Alkaline Phosphatase 175 U/L (46-116); Anion Gap 14.6; Aspartate Amino Transferase 16 U/L (15-37); BUN Creatinine Ratio 15.1; Bilirubin Total 0.5 mg/dL (0.2-1.0); Calcium 9.3 mg/dL (8.5-10.1); Carbon Dioxide 23.6 mmol/L (21.0-32.0); Chloride 108 mmol/L (98-107); Chol HDL Ratio 3.4; Cholesterol 186 mg/dL (<=200); Estimated GFR (African America 27 (>=60 mL/min/1.73m^2); Estimated GFR (Non-African Ame 23 (>=60 mL/min/1.73m^2); Free T3 2.13 pg/mL (2.18-3.98); Globulin 4.8 g/dL; Glucose 87 mg/dL (74-106); HDL Cholesterol 55 mg/dL (40-60); Potassium 4.2 mmol/L (3.5-5.1); Sodium 142 mmol/L (136-145); Total Protein 7.8 g/dL (6.4-8.2); Triglycerides 151 mg/dL (<=150); VLDL CHOLESTEROL 30.2 mg/dL
== END 2025-03-03 07:23 | disposition home or self-care (01) ==
LOC: LAB 07:23
PROVIDERS: PCP Family Medicine; Visit Provider Family Medicine
DX: I85.00 Esophageal varices without bleeding (principal); K21.9 Gastro-esophageal reflux disease without esophagitis; E11.9 Type 2 diabetes mellitus without complications; E78.5 Hyperlipidemia, unspecified; D64.9 Anemia, unspecified; R53.83 Other fatigue; E55.9 Vitamin D deficiency, unspecified
CPT/HCPCS: 36415; 80053; 80061; 82306; 83036; 83540; 84156; 84436; 84443; 84481

== ENCOUNTER 2025-05-13 10:40 | Outpatient (OUT) | payer MEDICARE, SELFPAY ==
[2025-05-13 11:15] LABS: Glucose Urine UA NEGATIVE (NEGATIVE)
[2025-05-13 12:49] LABS: Cast Seen? NONE SEEN #/LPF (NONE SEEN); Crystals Seen? None Seen #/HPF (None Seen); Urine Culture Indicated ALREADY ORDERED
--- OUTSIDE RECORDS SUMMARY | 2025-05-13 13:16 | XMS_ITS | CCD ---
Author Organization [facility] CliniSywy Care Team Providers Care Summer Child Caregiver Name Role Phone PHYSICIAN, DEFAULT Admitting Unavailable [...] Admitting Unavailable UNKNOWN, PROVIDER Attending Unavailable KRZYSZTOF THOMPSON Referring Unavailable JASONYKRZYSZTOF Primary Care Unavailable RODRIGUEZ [...] HOY ., DR BLANKENSHIP Admitting Unavailable LEONEL .APRIL Admitting Unavailable LEONEL .APRIL Attending Unavailable HOY [...] Admitting Unavailable LEONEL ., APRIL Attending Unavailable JASONY ., DR BLANKENSHIP Primary Care Unavailable HOY ., DR BLANKENSHIP Admitting Unavailable HOY ., DR BLANKENSHIP Consulting Unavailable HOY ., DR BLANKENSHIP Attending Unavailable HOY ., DR BLANKENSHIP Primary Care Unavailable MD Ben Sanchez Attending Provider [phone] MD Krzysztof Thompson Primary Care Provider [phone] Krzysztof Thompson MD Primary Care Provider [phone] Raven Sesay DO Unavailable [phone] KRZYSZTOF THOMPSON Primary Care Unavailable FREEMAN WARD Attending Unavailab le MARGIE THOMPSONLAS M Referring Unavailable HOY, KRZYSZTOF M Primary Care Unavailable CHRISTOPHER, MENNATALLAH M Admitting Unavailable CHRISTOPHER, MENNATALLAH M Attending Unavailable HOAlison, KRZYSZTOF M Primary Care Unavailable DARSHAN HERNANDEZ Attending Unavailable CLEVE SHETH Attending Unavailable CLEVE SHETH Attending Unavailable CLEVE SHETH Attending Unavailable CLEVE SHETH Referring Unavailable CLEVE SHETH Referring Unavailable CLEVE SHETH Attending Unavailable RAVEN SESAY Attending Unavailable CLEVE SHETH Referring Unavailable CLEVE SHETH Attending Unavailable RAVEN SESAY Attending Unavailable RAVEN SESAY Attending Unavailable Krzysztof Thompson MD Primary Care Provider [phone] Krzysztof Thompson MD Primary Care Provider [phone] MARGIE THOMPSONLAS M Referring Unavailable HOY, KRZYSZTOF M Primary Care Unavailable HOY, KRZYSZTOF M Referring Unavailable HOY, KRZYSZTOF M Primary Care Unavailable KAITLIN MACDONALD Attending Unavailable HOY, KRZYSZTOF M Referring Unavailable HOY, KRZYSZTOF M Primary Care Unavailable KAITLIN MACDONALD Attending Unavailable HOY, KRZYSZTOF M Referring Unavailable HOY, KRZYSZTOF M Primary Care Unavailable Krzysztof Thompson MD Primary Care Provider [phone] Vasyl Chicas MD Attending Provider Rickie Saucedo MD Attending Provider Vasyl Chicas MD Referring Provider Yael Atwood MD Attending UnavailYael Riggs MD Attending UnavailKrzysztof Velasquez Primary Care Unavailable Vasyl Chicas Admitting Unavailable Vasyl Chicas Attending Unavailable Rickie Saucedo Admitting Unavailable Rickie Saucedo Attending Unavailable Krzysztof Thompson Primary Care Unavailable Rickie Saucedo Admitting Unavailable Rickie Saucedo Attending Unavailable Krzysztof Thompson Primary Care Unavailable Rickie Alvares MD Attending Provider Allergies Allergy Classification Reported Allergen(s) Allergy Type Date of Onset Reaction(s) Facility (16 sources) Morphine; Translations: [MORPHINE] Drug Allergy 7 Vomiting [facility] Repository (7 sources) NSAIDs; Translations: [NSAIDS (NON-STEROIDAL ANTI-INFLAMMATOR Y DRUG)] Drug allergy (disorder) 9 GI Bleeding [facility] Repository (1 source) Penicillin Drug Allergy 9 [facility] Repository (1 source) predniSONE Drug Allergy 9 [facility] Repository (2 sources) Iodinated Contrast- Oral and IV Dye Drug allergy (disorder) 5 [facility] Repository (20 sources) Penicillins; Translations: [PENICILLINS] Propensity to adverse reactions to drug (disorder) 5 Rash [facility] Repository (20 sources) IODINATED CONTRAST MEDIA; Translations: [IODINATED CONTRAST MEDIA] Propensity to adverse reactions to drug (disorder) 3 Anaphylaxis, Other (See Comments) [facility] Repository (1 source) levoFLOXacin Drug Allergy 3 The [facility] Repository (1 source) meloxicam Drug Allergy 3 [facility] Repository (11 sources) NSAIDS (Non-Steroidal Anti-Inflamma; Translations: [NSAIDS (Non-Steroidal Anti-Inflamma] Propensity to adverse reactions 4 Stomach Ulcer [facility] Comment on above: pt has stomach ulcer (20 sources) Morphine Drug Allergy 8 Nausea And Vomiting, Vomiting [facility] (8 sources) Non-steroidal anti-inflammator y agent Propensity to adverse reactions 4 Rash [facility] (7 sources) Contrast media; Translations: [DYE] Propensity to adverse reactions to drug (disorder) 7 Swelling [facility] Repository (7 sources) MORPHOLINE ANALOGUES; Translations: [MORPHOLINE ANALOGUES] Propensity to adverse reactions to drug (disorder) 7 Vomiting [facility] Repository (3 sources) Non-steroidal anti-inflammator y agent Propensity to adverse reactions to drug [address] [facility] (1 source) Morphine Drug Allergy 5 [facility] Repository Medications Current Medications Medication Drug [...] Start: 02-19-2024 take 1 tablet by mouth once daily Aspirin 81 mg tablet,delayed release (DR/EC) Active 81 MG PO Daily February 19, 2024 12:00am Complies with drug therapy clopidogrel 75 mg oral tablet (20 sources) P2Y12 Platelet Inhibitor Start: 01-28-2024 take 1 tablet by mouth once daily in the morning Clopidogrel 75 mg tablet Active 75 MG PO Every morning January 28, 2024 12:00am Complies with drug therapy Fluticasone-Umeclid in-Vilanter (7 sources) Start: 02-19-2025 Fluticasone-Umeclid in-Vilanter (Trelegy Ellipta) 200-62.5-25 mcg blister with device Active 1 INH INHALATION Daily February 19, 2025 12:00am Complies with drug therapy Start: 02-19-2025 gabapentin 100 mg oral capsule (2 sources) Anti-epileptic Agent Start: 08-11-2024 End: 11-09-2024 take 1 capsule by mouth in the morning gabapentin (Neurontin) 100 MG capsule Indications: Left hand pain Take 1 capsule (100 mg) by mouth in the morning and 1 capsule (100 mg) before bedtime. 60 capsule 2 08/11/2024 11/09/2024 Active metoprolol tartrate 50 mg oral tablet (20 sources) beta-Adrenergic Facundo Start: 02-19-2025 take 1 tablet by mouth twice daily Metoprolol Tartrate 50 mg tablet Active 50 MG PO Twice daily February 19, 2025 12:00am Complies with drug therapy Start: 03-27-2024 take 1 tablet by lizeth th in the morning metoprolol tartrate (LOPRESSOR) 50 mg tablet Take 1 tablet (50 mg total) by mouth in the morning. 03/27/2024 Active Start: 03-27-2024 metoprolol tar trate (Lopressor) 25 MG tablet 03/27/2024 Active pantoprazole 40 mg delayed release oral tablet (20 sources) Proton Pump Inhibitor Start: 01-28-2024 End: 02-19-2024 Pantoprazole 40 mg tablet,delayed release (DR/EC) Active 40 MG PO Daily 30 February 19, 2024 9:26am Take 1 tablet orally 30 minutes before morning meal. Complies with drug therapy salmon calcitonin 200 unt/actuat nasal spray (16 sources) Calcitonin Start: 06-17-2024 End: 08-14-2024 take 1 spray(s) nasal route in the morning calcitonin, salmon, (MIACALCIN) 200 unit/actuation nasal spray Administer 1 spray into alternating nostrils in the morning. 07/15/2024 08/14/2024 Active sucralfate 1000 mg oral tablet (20 sources) Aluminum Complex Start: 03-18-2024 take 1 tablet by mouth four times daily sucralfate (Carafate) 1 g tablet TAKE 1 TABLET BY MOUTH ON AN EMPTY STOMACH FOUR TIMES DAILY 03/18/2024 Active Start: 02-19-2024 take 1 tablet by lizeth twice daily Sucralfate 1 gram tablet Active 1 GM PO Twice daily February 19, 2024 9:14am Complies with drug therapy Start: 01-28-2024 End: 02-19-2024 take 1 tablet by mouth four times daily Sucralfate 1 gram tablet Discontinued 1 GM PO Four times daily January 28, 2024 12:00am February 19, 2024 9:15am tiZANidine 2 mg oral capsule (7 sources) Central alpha-2 Adrenergic Agonist Start: 03-11-2025 take 1 capsule by mouth twice daily as needed Tizanidine 2 mg capsule Active 2 MG PO Twice daily as needed for muscle spasticity 60 March 11, 2025 12:00am Complies with drug therapy Completed/Discontinued Medications Medication Drug Class(es) Dates Sig (Normalized) Sig (Original) atorvastatin 20 mg oral tablet (20 sources) HMG-CoA Reductase Inhibitor Start: 01-28-2024 End: 02-19-2025 take 1 tablet by mouth once daily at bedtime Atorvastatin 20 mg tablet Discontinued 20 MG PO Daily at bedtime January 28, 2024 12:00am February 19, 2025 2:58pm End: 12-25-2024 take 1 tablet by mouth in the morning atorvastatin (LIPITOR) 40 mg tablet Take 1 tablet (40 mg total) by mouth in the morning. 12/25/2024 Discontinued (Discontinued by another clinician) cetirizine hydrochloride 10 mg oral tablet (10 sources) Histamine-1 Receptor Antagonist Start: 01-28-2024 End: 02-19-2024 take 1 tablet by mouth once daily in the morning Cetirizine 10 mg tablet Discontinued 10 MG PO Every morning January 28, 2024 12:00am February 19, 2024 9:13am 1 ml denosumab 60 mg/ml prefilled syringe (1 source) RANK Ligand Inhibitor End: 07-16-2024 inject 60 mg by subcutaneous injection once denosumab (PROLIA) 60 mg/mL syringe injection Inject 60 mg under the skin once. 07/16/2024 Discontinued (Discontinued by another clinician) lactulose 667 mg/ml oral solution (20 sources) Osmotic Laxative Start: 02-19-2024 End: 08-12-2024 take 1 mL by mouth twice daily Lactulose 10 gram/15 mL solution Discontinued 30 ML PO Twice daily 1800 February 19, 2024 9:26am August 12, 2024 12:13pm Start: 01-28-2024 End: 02-19-2024 take 1 mL by mouth once daily in the morning Lactulose 10 gram/15 mL solution Discontinued 15 ML PO Every morning January 28, 2024 12:00am February 19, 2024 9:15am lidocaine 0.05 mg/mg medicated patch (1 source) Antiarrhythmic, Amide Local Anesthetic Start: 06-13-2024 End: 07-16-2024 apply 1 dose transdermal route once daily, then apply 1 dose transdermal route every twelve hours lidocaine (LIDODERM) 5 % Indications: Left hip pain Place 1 patch on the skin daily. Remove & Discard patch within 12 hours or as directed by MD Guerrero patch 06/13/2024 07/16/2024 Discontinued (Patient Never Started This Medication) linaclotide 0.145 mg oral capsule (14 sources) Guanylate Cyclase-C Agonist Start: 08-13-2024 End: 02-19-2025 take 1 capsule by mouth once daily Linaclotide (Linzess) 145 mcg capsule Discontinued 145 MCG PO Daily August 13, 2024 1:00am February 19, 2025 2:58pm Start: 08-12-2024 End: 08-13-2024 take 1 capsule by mouth once daily Linaclotide (Linzess) 72 mcg capsule Discontinued 72 MCG PO Daily August 12, 2024 1:00am August 13, 2024 5:40pm rosuvastatin calcium 20 mg oral tablet (1 source) HMG-CoA Reductase Inhibitor End: 07-16-2024 take 1 tablet by mouth in the morning rosuvastatin (CRESTOR) 20 mg tablet Take 1 tablet (20 mg total) by mouth in the morning. 07/16/2024 Discontinued (Discontinued by another clinician) Sod Picosulf-Mag Ox-Citric Ac (9 sources) Start: 02-19-2024 End: 08-12-2024 take 1 dose by mouth once daily in the evening Sod Picosulf-Mag Ox-Citric Ac (Clenpiq) 10 mg-3.5 gram- 12 gram/175 mL solution Discontinued 175 ML PO Daily 175 February 19, 2024 12:00am August 12, 2024 12:12pm take first dose at 3:00 pm the day before colonoscopy, take second dose at 9:00 pm the day before colonoscopy. Start: 02-19-2024 take 1 dose by mouth once daily in the evening Sod Picosulf-Mag Ox-Citric Ac (Clenpiq) 10 mg-3.5 gram- 12 gram/175 mL solution Active 175 ML PO Daily 175 February 19, 2024 12:00am take first dose at 3:00 pm the day before colonoscopy, take second dose at 9:00 pm the day before colonoscopy. Problems Active Problems Problem Classification Problem Date Documented Da te Episodic/Chronic Abdominal hernia (15 sources) Diaphragmatic hernia without obstruction or gangrene; Translations: [Hiatal hernia] Onset: 10-25-2022 02-19-2024 Episodic Abdominal pain (1 source) Generalized abdominal [...] Coronary atherosclerosis; Translations: [Atherosclerotic heart disease of [place] coronary artery without angina pectoris] Onset: 02-11-2010 [...] Onset: 03-18-2010 01-09-2024 Chronic Diverticulosis and diverticulitis (20 sources) Diverticulum of duodenum; Translations: [Diverticulosis of small intestine without perforation or abscess without bleeding] Onset: 09-12-2018 02-19-2024 Chronic Esophageal disorders (20 sources) Gastro-esophageal reflux disease without esophagitis; Translations: [Gastroesophageal reflux disease] Onset: 02-11-2010 05-24-2023 Chronic Essential hypertension (6 sources) Essential (primary) hypertension; Translations: [ESSENTIAL (PRIMARY) HYPERTENSION] Onset: 11-19-2018 Chronic Fluid and electrolyte disorders (2 sources) Dehydration; Translations: [Hyperkalemia] Onset: 10-25-2022 Episodic Gastroduodenal ulcer (except hemorrhage) (4 sources) Gastric ulcer; Translations: [Gastric ulcer, unspecified as acute or chronic, without hemorrhage or perforation] 04-24-2025 Chronic Gastrointestinal hemorrhage (9 sources) Rectal hemorrhage; Translations: [Gastrointestinal hemorrhage] Onset: [...] knee joint] Onset: 01-17-2023 01-09-2024 Chronic Osteoporosis (20 sources) Age-related osteoporosis without current pathological fracture; Translations: [Osteoporosis] Onset: 07-29-2013 01-09-2024 Chronic Other acquired deformities (19 sources) Lumbar spondylolisthesis; Translations: [Spondylolisthesis, lumbar region] 02-19-2025 Episodic Other aftercare (2 sources) 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; Translations: [DIRECTOR OF PUBLICATIONS (CURRENT) USE OF ASPIRIN] Onset: 11-19-2018 Episodic Other aftercare (1 source) Other longterm (current) drug therapy; Translations: [OTH DIRECTOR OF PUBLICATIONS CURRENT DRUG THERAPY] Onset: 01-17-2023 Episodic Other [...] [Pain in left hand] 08-11-2024 Episodic Other connective tissue disease (19 sources) Muscle pain; Translations: [Myalgia, unspecified site] 03-11-2025 Episodic Other fractures (4 sources) Fracture of multiple pubic rami; Translations: [Other specified fracture of right pubis, initial encounter for closed fracture] 06-17-2024 Episodic Other gastrointestinal disorders (9 sources) Irritable bowel syndrome; Translations: [Irritable bowel syndrome without diarrhea] 02-19-2024 Chronic Other gastrointestinal disorders (2 sources) Irritable bowel syndrome without diarrhea; Translations: [Irritable bowel syndrome] 02-19-2024 Chronic Other gastrointestinal disorders (7 sources) Irritable bowel syndrome characterized by constipation; Translations: [Irritable bowel syndrome with constipation] 08-12-2024 Chronic Other hematologic conditions (4 sources) Other [...] 02-11-2010 05-24-2023 Chronic Other nervous system disorders (19 sources) Chronic pain; Translations: [Other chronic pain] 03-11-2025 Chronic Other nervous system disorders (1 source) [...] Onset: 06-13-2024 Episodic Other non-traumatic joint disorders (10 sources) Pain in right shoulder; Translations: [Right shoulder pain] Onset: 04-02-2025 04-02-2025 Episodic Other screening for suspected conditions (not mental disorders or infectious disease) (17 sources) Abnormal result of other cardiovascular function [...] UNSPECIFIED] Onset: 10-25-2022 Episodic Residual codes; unclassified (4 sources) Postmenopausal state; Translations: [Asymptomatic menopausal state] 04-27-2025 Episodic Spondylosis; intervertebral disc disorders; other back problems (20 sources) Degeneration of lumbar intervertebral disc; Translations: [Degeneration of lumbar intervertebral disc] Onset: 05-27-2010 05-24-2023 Chronic Spondylosis; intervertebral disc disorders; other back problems (20 sources) Cervical radiculopathy; Translations: [Radiculopathy, cervical region] Onset: 03-11-2025 07-17-2024 Episodic Unclassified (2 sources) ABN STRESS [...] (1 source) PAIN RT HIP Onset: 06-13-2024 Unclassified (1 source) M54.6 - Pain in thoracic spine Unclassified (4 sources) R93.7 - Abnormal findings on diagnostic imaging of other parts of musculoskeletal system Viral infection (1 source) COVID-19; Translations: [COVID-19] Onset: 09-30-2022 Past or Other Problems Problem Classification Problem Date Documented Da te Episodic/Chronic Gastroduodenal ulcer (except hemorrhage) (2 sources) H/O: [...] Test Name Value Interpretation Reference Range Facility X-ray reportOrdered By: Jose Luna on 04-02-2025 Study report [facility] [address] [place] [address] XRay Report Signed Patient: Sheila Mac MR#: [id number] : 1950 Acct:[id number] Age/Sex: 74 / F ADM Date: 5 Loc: [facility] Room: Type: [facility] CLI Attending Dr: Rickie Saucedo MD Copies to: Rickie Saucedo MD~ Ordering Provider: Rickie Saucedo MD Date of Service: 04/02/25 XR/XR shoulder RT min 2V*: M25.511 - Pain in right shoulder 4 views right shoulder plain film HISTORY: Generalized right shoulder pain. COMPARISON: None ACUTE FINDINGS: None DEGENERATIVE CHANGE: Mild SOFT TISSUE FINDINGS: Unremarkable JOINT EFFUSION: None POSTOP CHANGES: None BONY MINERALIZATION: Adequate XR/XR shoulder RT min 2V* IMPRESSION: Mild degeneration Impression dictated by: Elian Luna M.D. 04/02/2025 6:13 PM Dictation Location: [facility] Transcribed By: [facility] 04/02/251812 Dictated By: Elian Luna DO 04/02/251811 Signed By: 04/02/251812 [facility] XR shoulder RT min 2V*on XR shoulder RT min 2V* [facility] [address] [place] [address] XRay Report Signed Patient: Sheila Mac MR#: [id number] 1859 : 1950 Acct:[id number] Age/Sex: 74 / F ADM Date: 04/02/25 Loc: [facility] Room: Type: [facility] CLI Attending Dr: Rickie Saucedo MD Copies to: Rickie Saucedo MD Ordering Provider: Rickie Saucedo MD Date of Service: 04/02/25 XR/XR shoulder RT min 2V*: M25.511 - Pain in right shoulder 4 views right shoulder plain film HISTORY: Generalized right shoulder pain. COMPARISON: None ACUTE FINDINGS: None DEGENERATIVE CHANGE: Mild SOFT TISSUE FINDINGS: Unremarkable JOINT EFFUSION: None POSTOP CHANGES: None BONY MINERALIZATION: Adequate XR/XR shoulder RT min 2V* IMPRESSION: Mild degeneration Impression dictated by: Elian Luna M.D. 04/02/2025 6:13 PM Dictation Location: [place] [address] Transcribed By: [facility] 04/02/251812 Dictated By: Elian Luna DO 04/02/251811 Signed By: 04/02/251812 Normal [facility] X-ray reportOrdered By: Lynn Fields on 03-11-2025 Study report [facility] [address] [place] [address] XRay Report Signed Patient: Sheila Mac MR#: [id number] : 1950 Acct:[id number] Age/Sex: 74 / F ADM Date: 5 Loc: [facility] Room: Type: [facility] Attending Dr: Rickie Saucedo MD Copies to: Rickie Saucedo MD~ Ordering Provider: Rickie Saucedo MD Date of Service: 03/11/25 XR/XR thoracic spine 2V: M54.6 - Pain in thoracic spine THORACIC SPINE - 3 views: CLINICAL HISTORY: Severe upper back and scapular pain with decreased range of motion at the arms. No injury. COMPARISON: CT 12/11/2024 AP, lateral and swimmer's views were obtained. There is osteopenia. S-shaped thoracolumbar scoliotic curvature is again seen. There is no acute compression fracture or displacement. The pedicles are intact. There is mild endplate spurring. There are no paraspinal soft tissue abnormalities. XR/XR thoracic spine 2V IMPRESSION: OSTEOPENIA, SCOLIOSIS AND DEGENERATIVE CHANGES. Impression dictated by: Ling Fields M.D. 03/11/2025 12:01 PM Dictation Location: [place] [address] Transcribed By: [facility] 03/11/25 120 Dictated By: Ling Fields MD 03/11/25 1158 Signed By: 03/11/25 120 [facility] Work Phone: XR thoracic spine 2Von 03-11 XR thoracic spine 2V [facility] [address] [place] [address] XRay Report Signed Patient: Sheila Mac MR#: [id number] 1859 : 1950 Acct:[id number] Age/Sex: 74 / F ADM Date: 03/11/25 Loc: [facility] Room: Type: [facility] CLI Attending Dr: Rickie Saucedo MD Copies to: Rickie Saucedo MD Ordering Provider: Rickie Saucedo MD Date of Service: 03/11/25 XR/XR thoracic spine 2V: M54.6 - Pain in thoracic spine THORACIC SPINE - 3 views: CLINICAL HISTORY: Severe upper back and scapular pain with decreased range of motion at the arms. No injury. COMPARISON: CT 12/11/2024 AP, lateral and swimmer's views were obtained. There is osteopenia. S-shaped thoracolumbar scoliotic curvature is again seen. There is no acute compression fracture or displacement. The pedicles are intact. There is mild endplate spurring. There are no paraspinal soft tissue abnormalities. XR/XR thoracic spine 2V IMPRESSION: OSTEOPENIA, SCOLIOSIS AND DEGENERATIVE CHANGES. Impression dictated by: Ling Fields M.D. 03/11/2025 12:01 PM Dictation Location: [place] [address] Transcribed By: [facility] 03/11/25 1201 Dictated By: Ling Fields MD 03/11/25 1158 Signed By: 03/11/25 1201 Normal [facility] XR cerv spine AP/LAT/FLX/EXT on 02-26-2025 XR cerv spine AP/LAT/FLX/EXT [facility] [address] [address] XRay Report Signed Patient: Sheila Mac MR#: [id number] 1859 : 1950 Acct:[id number] Age/Sex: 74 / F ADM Date: 02/26/25 Loc: [place] Room: Type: [facility] CLI Attending Dr: Vasyl Chicas MD Copies to: Vasly Chicas MD Ordering Provider: Vasyl Chicas MD [...] Luna M.D. 02/26/2025 12:52 PM Dictation Location: [place] [address] Transcribed By: [facility] 02/26/25 1252 Dictated By: Elian Luna DO 02/26/25 1249 Signed By: 02/26/25 1252 Normal [facility] XR lumbar spine 6V w bending on 02-26-2025 XR lumbar spine 6V w bending [facility] [address] [place] [address] XRay Report Signed Patient: Sheila Mac MR#: [id number] 1861 : 1950 Acct:[id number] Age/Sex: 74 / F ADM Date: 02/26/25 Loc: [place] Room: Type: [facility] Attending Dr: Vasyl Cihcas MD Copies to: Vasyl Chicas MD Ordering [...] Luna M.D. 02/26/2025 2:14 PM Dictation Location: [facility]23 Transcribed By: [facility] 02/26/25 141 Dictated By: Elian Luna DO 02/26/25 1411 Signed By: 02/26/25 141 Normal [facility] Surgical Pathologyon 024 Surgical Pathology Normal [facility] Comment on above: Result Comment: [facility] [address] [place] [address] Surgical Pathology Consultation Patient Name:SHEILA MAC ADOB:1950 (Age: 74)Gender:FTaken:4Reported:07/31/2024hysician(s):Kimberly White MD ([phone])Copy To: Rec. #:[id number]: #[id number] Final Pathologic Diagnosis 1. Duodenum biopsy first portion: Duodenal mucosa with no significant histopathologic changes. No active inflammation, celiac disease, parasites, granuloma or atypia. 2. Antrum biopsy: Gastric antral mucosa with no significant histopathologic changes. No intestinal metaplasia or dysplasia. No Helicobacter pylori organisms are seen on routine sections. Report Electronically Signed Out wak/07/31/2024Rodriguez Vargas MD Interpretation performed at [facility], [address] [place] [address], License number: [id number]. Clinical History Vomiting, gastroesophageal reflux, dysphagia Gross Description 1. Received in formalin labeled ASLINGER, #1: Duodenum is a single hathaway bit of soft tissue, 0.2 cm in greatest dimension. Filtered and submitted in a single cassette. (1, ns, [id number], m7) MG 2. Received in formalin labeled ASLINGER, #2: Antrum is a single hathaway bit of soft tissue, 0.3 cm in greatest dimension. Filtered and submitted in a single cassette. (1, ns, [id number], m7) MG [facility]/07/28/2024GR Specimen(s) Received 1: Duodenum biopsy first portion 2: Antrum biopsy Fee Codes(s): 1; 03081 2; 53632 EMG 1 Extremeityon 4 C8 radiculopathy on the left, moderate [facility] NVC 5-6 Nerveson 07-17-2024 C8 radiculopathy on the left, moderate [facility] XR HIP LT 2-3 VIEWS W [...] Rod Muller MD on 06/13/2024 10:24 PM [facility] XR SPINE LUMBAR 2 [...] on 06/13/2024 10:20 PM Normal [facility] MR HIP RIGHT WO IV CONTRASTo [...] of the right hip Hemal [facility]th [facility] Radiology Study observation (narrative) [facility] ColonoscopyOrdered By: Kera George on 03-26-2024 [facility] US AYESHA DOP LEG LTon 01-16-20 [...] left lower extremity. Electronically authenticated by: DANIEL PINEDA Date: 2023-01-15 08:[address] [facility] XR ANKLE LT MIN 3 [...] by: GONZALEZ PATEL Date: 2023-01-15 07:[address] [facility] VITAMIN B1 (THIAMINE)on Vit. B1, Whole Blood 118.1 nmol/L Normal 66.5-200.0 Th e [facility] Comment on above: Performed By: #### C BC #### [facility] [address] [place], [place] [address] Dr. Ekta Funk BNPon 01-10-2023 Natriuretic peptide B (Bld) [Mass/Vol] 980.0 pg/mL Critically high <=900.0 [facility] Comment on above: Performed By: #### C VDTBH #### [facility] [address] [place] [address] [address] Ekta Funk CBC AUTO DIFFon 01-10-2023 BASO # 0.1 103/ul Normal 0.0-0.1 [facility] Comment on above: Performed By: #### C MP #### [facility] [address] [address] [address] Ekta Funk Basophils/100 WBC (Bld) 1.0 % Normal 0.2-2.0 [facility] Comment on above: Performed By: #### C MP #### [facility] [address] [address] [address] Ekta Funk EO # 0.4 103/ul Normal 0.0-0.7 [facility] Comment on above: Performed By: #### C MP #### [facility] [address] [place] [address] Dr. Ekta Funk Eosinophils/100 WBC (Bld) 3.7 % Normal 0.9-7.0 [facility] Comment on above: Performed By: #### C MP #### [facility] [address] [place] [address] Dr. Ekta Funk Erythrocyte distribution width (RBC) [Ratio] 13.2 % Normal 11.0-15.0 [facility] Comment on above: Performed By: #### C MP #### [facility] [address] [place] [address] Dr. Ekta Funk Hematocrit (Bld) [Volume fraction] 35.1 % Critically low 36.0-48.0 [facility] Comment on above: Performed By: #### C MP #### [facility] [address] [place] [address] Dr. Ekta Funk Hemoglobin (Bld) [Mass/Vol] 11.3 g/dL Critically low 12.0-16.0 [facility] Comment on above: Performed By: #### C MP #### [facility] [address] [place] [address] Dr. Ekta Funk IG # 0.04 10e3/ul Critically high 0.00-0.03 [facility] Comment on above: Performed By: #### C MP #### [facility] [address] [place] [address] Dr. Ekta Funk IG % 0.4 % Normal 0.0-0.5 [facility] Comment on above: Performed By: #### C MP #### [facility] [address] [place] [address] Dr. Ekta Funk LYMPH # 2.0 103/ul Normal 1.2-3.8 [facility] Comment on above: Performed By: #### C MP #### [facility] [address] [place] [address] Dr. Ekta Funk Lymphocytes/100 WBC (Bld) 20.8 % Normal 20.5-60.0 [facility] Comment on above: Performed By: #### C MP #### [facility] [address] [place] [address] Dr. Ekta Funk MANUAL DIFF REQ NO Normal [facility] Comment on above: Performed By: #### C MP #### [facility] [address] [place] [address] Dr. Ekta Funk MCH (RBC) [Entitic mass] 32.3 pg Normal 26.7-34.0 [facility] Comment on above: Performed By: #### C MP #### [facility] [address] [place] [address] Dr. Ekta Funk MCHC (RBC) [Mass/Vol] 32.2 g/dL Normal 29.9-35.2 [facility] Comment on above: Performed By: #### C MP #### [facility] [address] [place] [address] Dr. Ekta Funk MCV (RBC) [Entitic vol] 100.3 fL Critically high 81.0-99.0 [facility] Comment on above: Performed By: #### C MP #### [facility] [address] [place] [address] Dr. Ekta Funk MONO # 0.8 103/ul Normal 0.3-0.8 [facility] Comment on above: Performed By: #### C MP #### [facility] [address] [address] [address] Ekta Funk Monocytes/100 WBC (Bld) 7.9 % Normal 1.7-12.0 [facility] Comment on above: Performed By: #### C MP #### [facility] [address] [place] [address] Dr. Ekta Funk NEUT # 6.4 103/ul Normal 1.4-6.5 [facility] Comment on above: Performed By: #### C MP #### [facility] [address] [place] [address] Dr. Ekta Funk Neutrophils/100 WBC (Bld) 66.2 % Normal 43.0-75.0 [facility] Comment on above: Performed By: #### C MP #### [facility] [address] [place] [address] Dr. Ekta Funk Platelet mean volume (Bld) [Entitic vol] 9.6 fL Normal 9.5-13.5 [facility] Comment on above: Performed By: #### C MP #### [facility] [address] [place] [address] Dr. Ekta Funk PLT 255 103/ul Normal 150-450 [facility] Comment on above: Performed By: #### C MP #### [facility] [address] [place] [address] Dr. Ekta Funk RBC 3.50 106/ul Critically low 4.20-5.40 [facility] Comment on above: Performed By: #### C MP #### [facility] [address] [place] [address] Dr. Ekta Funk WBC 9.7 103/ul Normal 4.0-11.0 [facility] Comment on above: Performed By: #### C MP #### [facility] [address] [place] [address] Dr. Ekta Funk CRPon 01-10-2023 CRP [Mass/Vol] mg/L Normal <=1.0 [facility] Comment on above: Performed By: #### C BC #### [facility] [address] [place] [address] Dr. Ekta Funk FREE THYROXINE INDEX T7on FTI 2.62 Normal 1.30-4.50 [facility] Comment on above: Performed By: #### C BC #### [facility] [address] [place] [address] Dr. Ekta Funk T3U 32.0 % Normal 30.0-39.0 [facility] Comment on above: Performed By: #### C BC #### [facility] [address] [place] [address] Dr. Ekta Funk T4 [Mass/Vol] 8.20 ug/dL Normal 4.80-13.90 [facility] Comment on above: Performed By: #### C BC #### [facility] [address] [place] [address] Dr. Ekta Funk IRONon 01-10-2023 Iron [Mass/Vol] 61.0 ug/dL Normal 50.0-170.0 [facility] Comment on above: Performed By: #### B 12FOL, VITAD, IRON #### [facility] [address] [place] [address] Dr. Ekta Funk PROF 14(COMP METB)on 023 Albumin [Mass/Vol] 2.9 g/dL Critically low 3.4-5.0 [facility] [place] Comment on above: Performed By: #### C VDTBH #### [facility] [address] [place] [address] Dr. Ekta Funk Albumin/Globulin [Mass ratio] 0.6 {ratio} Normal [facility] Comment on above: Performed By: #### C VDTBH #### [facility] [address] [place] [address] Dr. Ekta Funk ALP [Catalytic activity/Vol] 101 U/L Normal 46-116 [facility] Comment on above: Performed By: #### C VDTBH #### [facility] [address] [place] [address] Dr. Ekta Funk ALT [Catalytic activity/Vol] 16 U/L Normal 14-59 [facility] Comment on above: Performed By: #### C VDTBH #### [facility] [address] [address] [address] Ekta Funk Anion gap [Moles/Vol] 14.6 mmol/L Normal [facility] [place] Comment on above: Performed By: #### C VDTBH #### [facility] [address] [address] [address] Ekta Funk AST [Catalytic activity/Vol] 15 U/L Normal 15-37 [facility] Comment on above: Performed By: #### C VDTBH #### [facility] [address] [address] [address] Ekta Funk Bilirubin [Mass/Vol] 0.4 mg/dL Normal 0.2-1.0 [facility] Comment on above: Performed By: #### C VDTBH #### [facility] [address] [place] [address] Dr. Ekta Funk Calcium [Mass/Vol] 9.2 mg/dL Normal 8.5-10.1 [facility] Comment on above: Performed By: #### C VDTBH #### [facility] [address] [place] [address] Dr. Ekta Funk Chloride [Moles/Vol] 107 mmol/L Normal 98-107 [facility] Comment on above: Performed By: #### C VDTBH #### [facility] [address] [place] [address] Dr. Ekta Funk CO2 [Moles/Vol] 24.4 mmol/L Normal 21.0-32.0 [facility] Comment on above: Performed By: #### C VDTBH #### [facility] [address] [place] [address] Dr. Ekta Funk Creatinine [Mass/Vol] 2.02 mg/dL Critically high 0.55-1.02 [facility] Comment on above: Performed By: #### C VDTBH #### [facility] [address] [address] [address] Ekta Funk EGFR-AF EGYPTIAN 29 mL/min/1.73m2 Critically low >=60 [facility] Comment on above: Performed By: #### C VDTBH #### [facility] [address] [address] [address] Ekta Funk EGFR-NON AF EGYPTIAN 24 mL/min/1.73m2 Critically low >=60 [facility] Comment on above: Performed By: #### C VDTBH #### [facility] [address] [address] [address] Ekta Funk Globulin (S) [Mass/Vol] 4.5 g/dL Normal [facility] Comment on above: Performed By: #### C VDTBH #### [facility] [address] [address] [address] Ekta Funk Glucose [Mass/Vol] 103 mg/dL Normal 74-106 [facility] Comment on above: Performed By: #### C VDTBH #### [facility] [address] [address] [address] Ekta Funk Potassium [Moles/Vol] 5.0 mmol/L Normal 3.5-5.1 [facility] Comment on above: Performed By: #### C VDTBH #### [facility] [address] [address] [address] Ekta Funk Protein [Mass/Vol] 7.4 g/dL Normal 6.4-8.2 [facility] Comment on above: Performed By: #### C VDTBH #### [facility] [address] [address] [address] Ekta Funk Sodium [Moles/Vol] 141 mmol/L Normal 136-145 [facility] Comment on above: Performed By: #### C VDTBH #### [facility] [address] [address] [address] Ekta Funk Urea nitrogen [Mass/Vol] 23.0 mg/dL Critically high 7.0-18.0 [facility] Comment on above: Performed By: #### C VDTBH #### [facility] [address] [address] [address] Ekta Funk Urea nitrogen/Creatinine [Mass ratio] 11.4 mg/mg Normal [facility] Comment on above: Performed By: #### C VDTBH #### [facility] [address] [place] [address] Dr. Ekta Funk TSHon 01-10-2023 TSH 1.793 uIU/mL Normal 0.358-3.740 [facility] Comment on above: Performed By: #### C VDTBH #### [facility] [address] [place] [address] Dr. Ekta Funk VIT B12 AND FOLATEon 023 Cobalamin (Vitamin B12) [Mass/Vol] 175.0 pg/mL Critically low 193.0-986.0 [facility] Comment on above: Performed By: #### B 12FOL, VITAD, IRON #### [facility] [address] [place] [address] Dr. Ekta Funk FOLATE 10.30 ng/mL Normal 8.60-58.90 [facility] Comment on above: Performed By: #### B 12FOL, VITAD, IRON #### [facility] [address] [place] [address] Dr. Ekta Funk VITAMIN D 25 OHon 01-10-2023 VIT D 25-OH 24.0 ng/mL Normal [facility] Comment on above: Performed By: #### B 12FOL, VITAD, IRON #### [facility] [address] [place] [address] Dr. Ekta Funk VIT D RANGES SEE BELOW Normal [facility] Comment on above: Result Comment: <20 ng/mL Vit D deficient 20 - <30 ng/mL Vit D insufficient 30 - 100 ng/mL Vit D sufficient >100 ng/mL Potential Toxicity Performed By: #### B 12FOL, VITAD, IRON #### [facility] [address] [place] [address] Dr. Ekta Funk Office Visiton 12-15-2022 Follow-up visit [id number] BryanrochelleSheila 1950 F Date Provider Department Center 12/15/2022 [facility]8-RODRIGUEZ RIVERA [facility] No family history on file Level of Service:[id number] [place] OFFICE/OUTPATIENT ESTABLISHED MOD MDM 30-39 MIN Reason for Visit and Comments: Follow-up [063406] - Is here f/u stress test pt states she had Bruises all over both legs symptoms stated a week ago also stated legs are swollen and burning Normal [facility] NM STRESS/REST MULTIon 12-05 NM STRESS/REST MULTI Patient: SHEILA MAC Exam Date: 12/05/2022 : 1950 Gender:F Ordering : DR KRZYSZTOF THOMPSON . Admission #: [id number] Family : Order #: [id number] CLICK HERE TO VIEW EXAM RADIOLOGY REPORT [...] medicine myocardial perfusion scan. Dictated by: Daniel Pineda M.D. on 12/06/2022 at 07:25 Approved by: Daniel Pineda M.D. on 12/06/2022 at 07:[address] [facility] ECHOCARDIO M/2D COMPLETEon 0 11-27-2022 ECHOCARDIO M/2D COMPLETE Patient: SHEILA MAC Exam Date: 11/27/2022 : 1950 Gender:F Ordering : DR KRZSYZTOF THOMPSON . Admission #: [id number] Family : Order #: [id number] CLICK HERE TO VIEW EXAM ECHOCARDIOGRAM REPORT [...] M.D. on 11/27/2022 at 14:39 Normal [facility] CBC AUTO DIFFon 11-26-2022 BASO # 0.0 103/ul Normal 0.0-0.1 [facility] Comment on above: Performed By: #### I NSULIN #### [facility] [address] [place] [address] Dr. Ekta Funk Basophils/100 WBC (Bld) 0.6 % Normal 0.2-2.0 [facility] Comment on above: Performed By: #### I NSULIN #### [facility] [address] [address] [address] Ekta Funk EO # 0.3 103/ul Normal 0.0-0.7 [facility] Comment on above: Performed By: #### I NSULIN #### [facility] [address] [place] [address] Dr. Ekta Funk Eosinophils/100 WBC (Bld) 4.8 % Normal 0.9-7.0 [facility] Comment on above: Performed By: #### I NSULIN #### [facility] [address] [place] [address] Dr. Ekta Funk Erythrocyte distribution width (RBC) [Ratio] 13.3 % Normal 11.0-15.0 [facility] Comment on above: Performed By: #### I NSULIN #### [facility] [address] [place] [address] Dr. Ekta Funk Hematocrit (Bld) [Volume fraction] 29.1 % Critically low 36.0-48.0 [facility] Comment on above: Performed By: #### I NSULIN #### [facility] [address] [place] [address] Dr. Ekta Funk Hemoglobin (Bld) [Mass/Vol] 9.5 g/dL Critically low 12.0-16.0 [facility] Comment on above: Performed By: #### I NSULIN #### [facility] [address] [place] [address] Dr. Ekta Funk IG # 0.07 10e3/ul Critically high 0.00-0.03 [facility] Comment on above: Performed By: #### I NSULIN #### [facility] [address] [place] [address] Dr. Ekta Funk IG % 1.0 % Critically high 0.0-0.5 [facility] Comment on above: Performed By: #### I NSULIN #### [facility] [address] [place] [address] Dr. Ekta Funk LYMPH # 1.2 103/ul Normal 1.2-3.8 [facility] Comment on above: Performed By: #### I NSULIN #### [facility] [address] [address] [address] Ekta Funk Lymphocytes/100 WBC (Bld) 17.2 % Critically low 20.5-60.0 [facility] Comment on above: Performed By: #### I NSULIN #### [facility] [address] [place] [address] Dr. Ekta Funk MANUAL DIFF REQ NO Normal [facility] Comment on above: Performed By: #### I NSULIN #### [facility] [address] [place] [address] Dr. Ekta Funk MCH (RBC) [Entitic mass] 31.7 pg Normal 26.7-34.0 [facility] Comment on above: Performed By: #### I NSULIN #### [facility] [address] [place] [address] Dr. Ekta Funk MCHC (RBC) [Mass/Vol] 32.6 g/dL Normal 29.9-35.2 [facility] Comment on above: Performed By: #### I NSULIN #### [facility] [address] [place] [address] Dr. Ekta Funk MCV (RBC) [Entitic vol] 97.0 fL Normal 81.0-99.0 [facility] Comment on above: Performed By: #### I NSULIN #### [facility] [address] [place] [address] Dr. Ekta Funk MONO # 0.8 103/ul Normal 0.3-0.8 [facility] Comment on above: Performed By: #### I NSULIN #### [facility] [address] [place] [address] Dr. Ekta Funk Monocytes/100 WBC (Bld) 11.1 % Normal 1.7-12.0 [facility] Comment on above: Performed By: #### I NSULIN #### [facility] [address] [place] [address] Dr. Ekta Funk NEUT # 4.5 103/ul Normal 1.4-6.5 [facility] Comment on above: Performed By: #### I NSULIN #### [facility] [address] [address] [address] Ekta Funk Neutrophils/100 WBC (Bld) 65.3 % Normal 43.0-75.0 [facility] Comment on above: Performed By: #### I NSULIN #### [facility] [address] [address] [address] Ekta Funk Platelet mean volume (Bld) [Entitic vol] 9.4 fL Critically low 9.5-13.5 [facility] Comment on above: Performed By: #### I NSULIN #### [facility] [address] [address] [address] Ekta Funk PLT 263 103/ul Normal 150-450 [facility] Comment on above: Performed By: #### I NSULIN #### [facility] [address] [place] [address] Dr. Ekta Funk RBC 3.00 106/ul Critically low 4.20-5.40 [facility] Comment on above: Performed By: #### I NSULIN #### [facility] [address] [address] [address] Ekta Funk WBC 6.9 103/ul Normal 4.0-11.0 [facility] Comment on above: Performed By: #### I NSULIN #### [facility] [address] [place] [address] Dr. Ekta Funk PROF 14(COMP METB)on 023 Albumin [Mass/Vol] 2.2 g/dL Critically low 3.4-5.0 [facility] [place] Comment on above: Performed By: #### C MP #### [facility] [address] [place] [address] Dr. Ekta Funk Albumin/Globulin [Mass ratio] 0.6 {ratio} Normal [facility] Comment on above: Performed By: #### C MP #### [facility] [address] [address] [address] Ekta Funk ALP [Catalytic activity/Vol] 82 U/L Normal 46-116 [facility] Comment on above: Performed By: #### C MP #### [facility] [address] [address] [address] Ekta Funk ALT [Catalytic activity/Vol] 13 U/L Critically low 14-59 [facility] Comment on above: Performed By: #### C MP #### [facility] [address] [address] [address] Ekta Funk Anion gap [Moles/Vol] 14.0 mmol/L Normal [facility] Comment on above: Performed By: #### C MP #### [facility] [address] [address] [address] Ekta Funk AST [Catalytic activity/Vol] 18 U/L Normal 15-37 [facility] Comment on above: Performed By: #### C MP #### [facility] [address] [place] [address] Dr. Ekta Funk Bilirubin [Mass/Vol] 0.4 mg/dL Normal 0.2-1.0 [facility] Comment on above: Performed By: #### C MP #### [facility] [address] [address] [address] Ekta Funk Calcium [Mass/Vol] 8.6 mg/dL Normal 8.5-10.1 [facility] Comment on above: Performed By: #### C MP #### [facility] [address] [address] [address] Ekta Funk Chloride [Moles/Vol] 108 mmol/L Critically high 98-107 [facility] Comment on above: Performed By: #### C MP #### [facility] [address] [address] [address] Ekta Funk CO2 [Moles/Vol] 19.6 mmol/L Critically low 21.0-32.0 [facility] Comment on above: Performed By: #### C MP #### [facility] [address] [address] [address] Ekta Funk Creatinine [Mass/Vol] 1.70 mg/dL Critically high 0.55-1.02 [facility] Comment on above: Performed By: #### C MP #### [facility] [address] [address] [address] Ekta Funk EGFR-AF EGYPTIAN 36 mL/min/1.73m2 Critically low >=60 [facility] Comment on above: Performed By: #### C MP #### [facility] [address] [address] [address] Ekta Funk EGFR-NON AF EGYPTIAN 29 mL/min/1.73m2 Critically low >=60 [facility] Comment on above: Performed By: #### C MP #### [facility] [address] [address] [address] Ekta Funk Globulin (S) [Mass/Vol] 3.6 g/dL Normal [facility] Comment on above: Performed By: #### C MP #### [facility] [address] [address] [address] Ekta Funk Glucose [Mass/Vol] 103 mg/dL Normal 74-106 [facility] Comment on above: Performed By: #### C MP #### [facility] [address] [address] [address] Ekta Funk Potassium [Moles/Vol] 4.6 mmol/L Normal 3.5-5.1 [facility] Comment on above: Performed By: #### C MP #### [facility] [address] [address] [address] Ekta Funk Protein [Mass/Vol] 5.8 g/dL Critically low 6.4-8.2 [facility] Comment on above: Performed By: #### C MP #### [facility] [address] [address] [address] Ekta Funk Sodium [Moles/Vol] 137 mmol/L Normal 136-145 [facility] Comment on above: Performed By: #### C MP #### [facility] [address] [address] [address] Ekta Funk Urea nitrogen [Mass/Vol] 26.0 mg/dL Critically high 7.0-18.0 [facility] Comment on above: Performed By: #### C MP #### [facility] [address] [address] [address] Ekta Funk Urea nitrogen/Creatinine [Mass ratio] 15.3 mg/mg Normal [facility] Comment on above: Performed By: #### C MP #### [facility] [address] [place] [address] Dr. Ekta Funk CBC AUTO DIFFon 11-25-2022 BASO # 0.1 103/ul Normal 0.0-0.1 [facility] Comment on above: Performed By: #### C BC #### [facility] [address] [place] [address] Dr. Ekta Funk Basophils/100 WBC (Bld) 0.7 % Normal 0.2-2.0 [facility] Comment on above: Performed By: #### C BC #### [facility] [address] [place] [address] Dr. Ekta Funk EO # 0.3 103/ul Normal 0.0-0.7 [facility] Comment on above: Performed By: #### C BC #### [facility] [address] [place] [address] Dr. Ekta Funk Eosinophils/100 WBC (Bld) 3.4 % Normal 0.9-7.0 [facility] Comment on above: Performed By: #### C BC #### [facility] [address] [place] [address] Dr. Ekta Funk Erythrocyte distribution width (RBC) [Ratio] 13.6 % Normal 11.0-15.0 [facility] Comment on above: Performed By: #### C BC #### [facility] [address] [place] [address] Dr. Ekta Funk Hematocrit (Bld) [Volume fraction] 32.1 % Critically low 36.0-48.0 [facility] Comment on above: Performed By: #### C BC #### [facility] [address] [place] [address] Dr. Ekta Funk Hemoglobin (Bld) [Mass/Vol] 10.3 g/dL Critically low 12.0-16.0 [facility] Comment on above: Performed By: #### C BC #### [facility] [address] [address] [address] Ekta Funk IG # 0.08 10e3/ul Critically high 0.00-0.03 [facility] Comment on above: Performed By: #### C BC #### [facility] [address] [place] [address] Dr. Ekta Funk IG % 0.9 % Critically high 0.0-0.5 [facility] Comment on above: Performed By: #### C BC #### [facility] [address] [place] [address] Dr. Ekta Funk LYMPH # 0.9 103/ul Critically low 1.2-3.8 [facility] Comment on above: Performed By: #### C BC #### [facility] [address] [place] [address] Dr. Ekta Funk Lymphocytes/100 WBC (Bld) 10.7 % Critically low 20.5-60.0 [facility] Comment on above: Performed By: #### C BC #### [facility] [address] [place] [address] Dr. Ekta Funk MANUAL DIFF REQ NO Normal [facility] Comment on above: Performed By: #### C BC #### [facility] [address] [place] [address] Dr. Ekta Funk MCH (RBC) [Entitic mass] 32.2 pg Normal 26.7-34.0 [facility] Comment on above: Performed By: #### C BC #### [facility] [address] [place] [address] Dr. Ekta Funk MCHC (RBC) [Mass/Vol] 32.1 g/dL Normal 29.9-35.2 [facility] Comment on above: Performed By: #### C BC #### [facility] [address] [place] [address] Dr. Ekta Funk MCV (RBC) [Entitic vol] 100.3 fL Critically high 81.0-99.0 [facility] Comment on above: Performed By: #### C BC #### [facility] [address] [place] [address] Dr. Ekta Funk MONO # 0.9 103/ul Critically high 0.3-0.8 [facility] Comment on above: Performed By: #### C BC #### [facility] [address] [address] [address] Ekta Funk Monocytes/100 WBC (Bld) 9.9 % Normal 1.7-12.0 [facility] Comment on above: Performed By: #### C BC #### [facility] [address] [place] [address] Dr. Ekta Funk NEUT # 6.4 103/ul Normal 1.4-6.5 [facility] Comment on above: Performed By: #### C BC #### [facility] [address] [place] [address] Dr. Ekta Funk Neutrophils/100 WBC (Bld) 74.4 % Normal 43.0-75.0 [facility] Comment on above: Performed By: #### C BC #### [facility] [address] [place] [address] Dr. Ekta Funk Platelet mean volume (Bld) [Entitic vol] 9.5 fL Normal 9.5-13.5 [facility] Comment on above: Performed By: #### C BC #### [facility] [address] [place] [address] Dr. Ekta Funk PLT 267 103/ul Normal 150-450 [facility] Comment on above: Performed By: #### C BC #### [facility] [address] [place] [address] Dr. Ekta Funk RBC 3.20 106/ul Critically low 4.20-5.40 [facility] Comment on above: Performed By: #### C BC #### [facility] [address] [place] [address] Dr. Ekta Funk WBC 8.6 103/ul Normal 4.0-11.0 [facility] Comment on above: Performed By: #### C BC #### [facility] [address] [place] [address] Dr. Ekta Funk BASO # 0.1 103/ul Normal 0.0-0.1 [facility] Comment on above: Performed By: #### C MP #### [facility] [address] [place] [address] Dr. Ekta Funk Basophils/100 WBC (Bld) 0.7 % Normal 0.2-2.0 [facility] Comment on above: Performed By: #### C MP #### [facility] [address] [place] [address] Dr. Ekta Funk EO # 0.3 103/ul Normal 0.0-0.7 [facility] Comment on above: Performed By: #### C MP #### [facility] [address] [place] [address] Dr. Ekta Funk Eosinophils/100 WBC (Bld) 3.9 % Normal 0.9-7.0 [facility] Comment on above: Performed By: #### C MP #### [facility] [address] [place] [address] Dr. Ekta Funk Erythrocyte distribution width (RBC) [Ratio] 13.2 % Normal 11.0-15.0 [facility] Comment on above: Performed By: #### C MP #### [facility] [address] [place] [address] Dr. Ekta Funk Hematocrit (Bld) [Volume fraction] 28.0 % Critically low 36.0-48.0 [facility] Comment on above: Performed By: #### C MP #### [facility] [address] [place] [address] Dr. Ekta Funk Hemoglobin (Bld) [Mass/Vol] 9.3 g/dL Critically low 12.0-16.0 [facility] Comment on above: Performed By: #### C MP #### [facility] [address] [place] [address] Dr. Ekta Funk IG # 0.08 10e3/ul Critically high 0.00-0.03 [facility] Comment on above: Performed By: #### C MP #### [facility] [address] [place] [address] Dr. Ekta Funk IG % 1.1 % Critically high 0.0-0.5 [facility] Comment on above: Performed By: #### C MP #### [facility] [address] [place] [address] Dr. Ekta Funk LYMPH # 0.9 103/ul Critically low 1.2-3.8 [facility] Comment on above: Performed By: #### C MP #### [facility] [address] [place] [address] Dr. Ekta Funk Lymphocytes/100 WBC (Bld) 12.1 % Critically low 20.5-60.0 [facility] Comment on above: Performed By: #### C MP #### [facility] [address] [place] [address] Dr. Ekta Funk MANUAL DIFF REQ NO Normal [facility] Comment on above: Performed By: #### C MP #### [facility] [address] [place] [address] Dr. Ekta Funk MCH (RBC) [Entitic mass] 32.0 pg Normal 26.7-34.0 [facility] Comment on above: Performed By: #### C MP #### [facility] [address] [place] [address] Dr. Ekta Funk MCHC (RBC) [Mass/Vol] 33.2 g/dL Normal 29.9-35.2 [facility] Comment on above: Performed By: #### C MP #### [facility] [address] [place] [address] Dr. Ekta Funk MCV (RBC) [Entitic vol] 96.2 fL Normal 81.0-99.0 [facility] Comment on above: Performed By: #### C MP #### [facility] [address] [place] [address] Dr. Ekta Funk MONO # 0.7 103/ul Normal 0.3-0.8 [facility] Comment on above: Performed By: #### C MP #### [facility] [address] [place] [address] Dr. Ekta Funk Monocytes/100 WBC (Bld) 9.8 % Normal 1.7-12.0 [facility] Comment on above: Performed By: #### C MP #### [facility] [address] [address] [address] Ekta Funk NEUT # 5.2 103/ul Normal 1.4-6.5 [facility] Comment on above: Performed By: #### C MP #### [facility] [address] [address] [address] Ekta Funk Neutrophils/100 WBC (Bld) 72.4 % Normal 43.0-75.0 [facility] Comment on above: Performed By: #### C MP #### [facility] [address] [address] [address] Ekta Funk Platelet mean volume (Bld) [Entitic vol] 9.4 fL Critically low 9.5-13.5 [facility] Comment on above: Performed By: #### C MP #### [facility] [address] [address] [address] Ekta Funk PLT 250 103/ul Normal 150-450 [facility] Comment on above: Performed By: #### C MP #### [facility] [address] [address] [address] Ekta Funk RBC 2.91 106/ul Critically low 4.20-5.40 [facility] Comment on above: Performed By: #### C MP #### [facility] [address] [address] [address] Ekta Funk WBC 7.2 103/ul Normal 4.0-11.0 [facility] Comment on above: Performed By: #### C MP #### [facility] [address] [address] [address] Ekta Funk PROF 14(COMP METB)on 023 Albumin [Mass/Vol] 2.1 g/dL Critically low 3.4-5.0 [facility] Comment on above: Performed By: #### C MP #### [facility] [address] [address] [address] Ekta Funk Albumin/Globulin [Mass ratio] 0.6 {ratio} Normal [facility] Comment on above: Performed By: #### C MP #### [facility] [address] [address] [address] Ekta Funk ALP [Catalytic activity/Vol] 68 U/L Normal 46-116 [facility] Comment on above: Performed By: #### C MP #### [facility] [address] [address] [address] Ekta Funk ALT [Catalytic activity/Vol] 14 U/L Normal 14-59 [facility] Comment on above: Performed By: #### C MP #### [facility] [address] [address] [address] Ekta Funk Anion gap [Moles/Vol] 12.9 mmol/L Normal Th [facility] Comment on above: Performed By: #### C MP #### [facility] [address] [place] [address] Dr. Ekta Funk AST [Catalytic activity/Vol] 14 U/L Critically low 15-37 [facility] Comment on above: Performed By: #### C MP #### [facility] [address] [address] [address] Ekta Funk Bilirubin [Mass/Vol] 0.3 mg/dL Normal 0.2-1.0 [facility] Comment on above: Performed By: #### C MP #### [facility] [address] [place] [address] Dr. Ekta Funk Calcium [Mass/Vol] 8.3 mg/dL Critically low 8.5-10.1 [facility] [place] Comment on above: Performed By: #### C MP #### [facility] [address] [address] [address] Ekta Funk Chloride [Moles/Vol] 109 mmol/L Critically high 98-107 [facility] Comment on above: Performed By: #### C MP #### [facility] [address] [address] [address] Ekta Funk CO2 [Moles/Vol] 19.3 mmol/L Critically low 21.0-32.0 [facility] Comment on above: Performed By: #### C MP #### [facility] [address] [address] [address] Ekta Funk Creatinine [Mass/Vol] 1.54 mg/dL Critically high 0.55-1.02 [facility] Comment on above: Performed By: #### C MP #### [facility] [address] [address] [address] Ekta Funk EGFR-AF EGYPTIAN 40 mL/min/1.73m2 Critically low >=60 [facility] Comment on above: Performed By: #### C MP #### [facility] [address] [address] [address] Ekta Funk EGFR-NON AF EGYPTIAN 33 mL/min/1.73m2 Critically low >=60 [facility] Comment on above: Performed By: #### C MP #### [facility] [address] [address] [address] Ekta Funk Globulin (S) [Mass/Vol] 3.7 g/dL Normal [facility] Comment on above: Performed By: #### C MP #### [facility] [address] [address] [address] Ekta Funk Glucose [Mass/Vol] 117 mg/dL Critically high 74-106 [facility] Comment on above: Performed By: #### C MP #### [facility] [address] [address] [address] Ekta Funk Potassium [Moles/Vol] 4.2 mmol/L Normal 3.5-5.1 [facility] Comment on above: Performed By: #### C MP #### [facility] [address] [address] [address] Ekta Funk Protein [Mass/Vol] 5.8 g/dL Critically low 6.4-8.2 Th [facility] Comment on above: Performed By: #### C MP #### [facility] [address] [address] [address] Ekta Funk Sodium [Moles/Vol] 137 mmol/L Normal 136-145 [facility] Comment on above: Performed By: #### C MP #### [facility] [address] [place] [address] Dr. Ekta Funk Urea nitrogen [Mass/Vol] 27.0 mg/dL Critically high 7.0-18.0 [facility] Comment on above: Performed By: #### C MP #### [facility] [address] [place] [address] Dr. Ekta Funk Urea nitrogen/Creatinine [Mass ratio] 17.5 mg/mg Normal [facility] Comment on above: Performed By: #### C MP #### [facility] [address] [place] [address] Dr. Ekta Funk AMMONIAon 11-24-2022 Ammonia (P) [Moles/Vol] 13 umol/L Normal 11-32 [facility] Comment on above: Performed By: #### C VDTB #### [facility] [address] [place] [address] Dr. Ekta Funk CBC AUTO DIFFon 11-24-2022 BASO # 0.0 103/ul Normal 0.0-0.1 [facility] Comment on above: Performed By: #### C MP #### [facility] [address] [place] [address] Dr. Ekta Funk Basophils/100 WBC (Bld) 0.4 % Normal 0.2-2.0 [facility] Comment on above: Performed By: #### C MP #### [facility] [address] [place] [address] Dr. Ekta Funk EO # 0.4 103/ul Normal 0.0-0.7 [facility] Comment on above: Performed By: #### C MP #### [facility] [address] [place] [address] Dr. Ekta Funk Eosinophils/100 WBC (Bld) 3.8 % Normal 0.9-7.0 [facility] Comment on above: Performed By: #### C MP #### [facility] [address] [place] [address] Dr. Ekta Funk Erythrocyte distribution width (RBC) [Ratio] 13.2 % Normal 11.0-15.0 [facility] Comment on above: Performed By: #### C MP #### [facility] [address] [address] [address] Ekta Funk Hematocrit (Bld) [Volume fraction] 34.0 % Critically low 36.0-48.0 [facility] Comment on above: Performed By: #### C MP #### [facility] [address] [address] [address] Ekta Funk Hemoglobin (Bld) [Mass/Vol] 11.5 g/dL Critically low 12.0-16.0 [facility] Comment on above: Performed By: #### C MP #### [facility] [address] [address] [address] Ekta Funk IG # 0.11 10e3/ul Critically high 0.00-0.03 [facility] Comment on above: Performed By: #### C MP #### [facility] [address] [place] [address] Dr. Ekta Funk IG % 1.2 % Critically high 0.0-0.5 [facility] Comment on above: Performed By: #### C MP #### [facility] [address] [address] [address] Ekta Funk LYMPH # 1.4 103/ul Normal 1.2-3.8 [facility] Comment on above: Performed By: #### C MP #### [facility] [address] [place] [address] Dr. Ekta Funk Lymphocytes/100 WBC (Bld) 14.9 % Critically low 20.5-60.0 [facility] Comment on above: Performed By: #### C MP #### [facility] [address] [place] [address] Dr. Ekta Funk MANUAL DIFF REQ NO Normal [facility] Comment on above: Performed By: #### C MP #### [facility] [address] [place] [address] Dr. Ekta Funk MCH (RBC) [Entitic mass] 32.5 pg Normal 26.7-34.0 [facility] Comment on above: Performed By: #### C MP #### [facility] [address] [address] [address] Ekta Funk MCHC (RBC) [Mass/Vol] 33.8 g/dL Normal 29.9-35.2 [facility] Comment on above: Performed By: #### C MP #### [facility] [address] [address] [address] Ekta Funk MCV (RBC) [Entitic vol] 96.0 fL Normal 81.0-99.0 [facility] Comment on above: Performed By: #### C MP #### [facility] [address] [address] [address] Ekta Funk MONO # 0.9 103/ul Critically high 0.3-0.8 [facility] Comment on above: Performed By: #### C MP #### [facility] [address] [place] [address] Dr. Ekta Funk Monocytes/100 WBC (Bld) 9.7 % Normal 1.7-12.0 [facility] Comment on above: Performed By: #### C MP #### [facility] [address] [address] [address] Ekta Funk NEUT # 6.4 103/ul Normal 1.4-6.5 [facility] Comment on above: Performed By: #### C MP #### [facility] [address] [address] [address] Ekta Funk Neutrophils/100 WBC (Bld) 70.0 % Normal 43.0-75.0 [facility] Comment on above: Performed By: #### C MP #### [facility] [address] [address] [address] Ekta Funk Platelet mean volume (Bld) [Entitic vol] 9.3 fL Critically low 9.5-13.5 [facility] Comment on above: Performed By: #### C MP #### [facility] [address] [address] [address] Ekta Funk PLT 308 103/ul Normal 150-450 [facility] Comment on above: Performed By: #### C MP #### [facility] [address] [place], [place] [address] Dr. Ekta Funk RBC 3.54 106/ul Critically low 4.20-5.40 [facility] Comment on above: Performed By: #### C MP #### [facility] [address] [place], [place] [address] Dr. Ekta Funk WBC 9.1 103/ul Normal 4.0-11.0 [facility] Comment on above: Performed By: #### C MP #### [facility] [address] [place], [place] [address] Dr. Ekta Funk CPKon 11-24-2022 CK [Catalytic activity/Vol] 21 U/L Critically low 26-192 [facility] Comment on above: Performed By: #### B 12FOL, VITAD, IRON #### [facility] [address] [place], [place] [address] STROKE HEAD WOon [...] VANESSA PARADA Date: 2022-11-24 11:[address] [facility] CTA HEAD WO W CONon [...] further evaluation. IMPRESSION: Electronically authenticated by: DANIEL PINEDA Date: 2022-11-24 12:41 Normal [facility] CULTURE URINEon 11-24-2022 CULTURE URINE Culture Observations: NO GROWTH. Normal [facility] Comment on above: Performed By: #### I NSULIN #### [facility] [address] [place] [address] Dr. Ekta Funk Covid-19 PCR ([facility])on 11-08 SARS-CoV-2 (COVID-19) RNA GANESH+probe Ql (Unsp spec) Not detected Normal NOT DETECTED [facility] Comment on above: Result Comment: [...] this test is supported by the [employer] and Human Service's declaration that [...] used). Performed By: #### C VDTBH #### [facility] [address] [place] [address] Dr. Ekta Funk ER URINE PROFILEon 3 Bilirubin Ql (U) Negative Normal NEGATIVE [facility] Comment on above: Performed By: #### C BC #### [facility] [address] [place] [address] Dr. Ekta Funk Clarity (U) CLEAR Normal CLEAR [facility] Comment on above: Performed By: #### C BC #### [facility] [address] [place] [address] Dr. Ekta Funk Color (U) LT. YELLOW Normal YELLOW [facility] Comment on above: Performed By: #### C BC #### [facility] [address] [address] [address] Ekta COLÓN A micrscopic examination will be performed if indicated. Normal [facility] Comment on above: Performed By: #### C BC #### [facility] [address] [address] [address] Ekta Funk Glucose Ql (U) Negative Normal NEGATIVE [facility] Comment on above: Performed By: #### C BC #### [facility] [address] [address] [address] Ekta Funk Hemoglobin Ql (U) Negative Normal NEGATIVE [facility] Comment on above: Performed By: #### C BC #### [facility] [address] [place] [address] Dr. Ekta Funk Ketones Ql (U) Negative Normal NEGATIVE [facility] Comment on above: Performed By: #### C BC #### [facility] [address] [place] [address] Dr. Ekta Funk LEUKOCYTES Negative Normal NEGATIVE [facility] Comment on above: Performed By: #### C BC #### [facility] [address] [place] [address] Dr. Ekta Funk Nitrite Ql (U) Negative Normal NEGATIVE [facility] Comment on above: Performed By: #### C BC #### [facility] [address] [place] [address] Dr. Ekta Funk pH (U) 5.5 [pH] Normal 5-9 [facility] Comment on above: Performed By: #### C BC #### [facility] [address] [place] [address] Dr. Ekta Funk SPEC GRAVITY 1.020 Normal 1.005-<=1.025 [facility] Comment on above: Performed By: #### C BC #### [facility] [address] [place] [address] Dr. Ekta Funk UA PROTEIN Negative Normal NEGATIVE/ TRACE [facility] Comment on above: Performed By: #### C BC #### [facility] [address] [place] [address] Dr. Ekta Funk UR MICRO IND NOT INDICATED Normal [facility] Comment on above: Performed By: #### C BC #### [facility] [address] [place] [address] Dr. Ekta Funk Urobilinogen Qn (U) 0.2 {Ivan'U}/dL Normal 0.2 - 1. 0 [facility] Comment on above: Performed By: #### C BC #### [facility] [address] [place] [address] Dr. Ekta Funk GLYCOHEMOGLOBIN A1Con 2022 ADA RECOMMENDATION SEE BELOW Normal [facility] Comment on above: Result Comment: ADA RECOMMENDED LIMIT 4.0 - 6.0 ADA THERAPEUTIC TARGET < 7.0 ACTION SUGGESTED > 7.0 Performed By: #### B 12FOL, VITAD, IRON #### [facility] [address] [place] [address] Dr. Ekta Funk Glucose [Mass/Vol] 143 mg/dL Normal [facility] Comment on above: Performed By: #### B 12FOL, VITAD, IRON #### [facility] [address] [place] [address] Dr. Ekta Funk HbA1c (Bld) [Mass fraction] 6.6 % Critically high 4.5-6.2 [facility] Comment on above: Performed By: #### B 12FOL, VITAD, IRON #### [facility] [address] [place] [address] Dr. Ekta Funk LACTATE/LACTIC ACIDon 2022 Lactate [Moles/Vol] 1.6 mmol/L Normal 0.4-2.0 [facility] Comment on above: Performed By: #### C MP #### [facility] [address] [place] [address] Dr. Ekta Funk Lactate [Moles/Vol] 2.1 mmol/L Critically high 0.4-2.0 [facility] Comment on above: Performed By: #### B 12FOL, VITAD, IRON #### [facility] [address] [place] [address] Dr. Ekta Funk LIPASEon 11-24-2022 Lipase [Catalytic activity/Vol] 165.0 U/L Normal 73.0-393.0 [facility] Comment on above: Performed By: #### B 12FOL, VITAD, IRON #### [facility] [address] [place] [address] Dr. Ekta Funk LIPID PROFILEon 11-24-2022 CHOL-HDL RATIO NORM SEE BELOW Normal [facility] Comment on above: Result Comment: 3.3 - 4.4 LOW RISK 4.4 - 7.1 AVERAGE RISK 7.1 - 11.0 MODERATE RISK >11.0 HIGH RISK Performed By: #### B 12FOL, VITAD, IRON #### [facility] [address] [address] [address] Ekta Funk Cholesterol [Mass/Vol] 248 mg/dL Critically high <=200 [facility] Comment on above: Performed By: #### B 12FOL, VITAD, IRON #### [facility] [address] [address] [address] Ekta Funk Cholesterol in HDL [Mass/Vol] 58 mg/dL Normal 40-60 [facility] Comment on above: Performed By: #### B 12FOL, VITAD, IRON #### [facility] [address] [address] [address] Ekta Funk Cholesterol in LDL [Mass/Vol] 165.6 mg/dL Normal [facility] Comment on above: Performed By: #### B 12FOL, VITAD, IRON #### [facility] [address] [address] [address] Ekta Funk Cholesterol.total/Chol esterol in HDL [Mass ratio] 4.3 {ratio} Normal [facility] Comment on above: Performed By: #### B 12FOL, VITAD, IRON #### [facility] [address] [place] [address] Dr. Ekta Funk HDL NORMAL > or = 60 mg/dl - LOW CARDIOVASCULAR RISK <40 mg/dl - HIGH CARDIOVASCULAR RISK Normal [facility] Comment on above: Performed By: #### B 12FOL, VITAD, IRON #### [facility] [address] [place], [place] [address] Dr. Ekta Funk LDL CALC NORMAL SEE BELOW Normal [facility] Comment on above: Result Comment: <100 mg/dl OPTIMAL 100 - 129 mg/dl NEAR OR ABOVE OPTIMAL 130 - 159 mg/dl BORDERLINE HIGH 160 - 189 mg/dl HIGH >190 mg/dl VERY HIGH Performed By: #### B 12FOL, VITAD, IRON #### [facility] [address] [place], [place] [address] Dr. Ekta Funk Triglyceride [Mass/Vol] 122 mg/dL Normal <=150 [facility] Comment on above: Performed By: #### B 12FOL, VITAD, IRON #### [facility] [address] [place], [place] [address] Dr. Ekta Funk VLDL CALC 24.4 mg/dL Normal [facility] Comment on above: Performed By: #### B 12FOL, VITAD, IRON #### [facility] [address] [place], [place] [address] Dr. Ekta Funk MRI BRAIN WO CONon [...] reviewed by the provider. Electronically authenticated by: KARSTENMIRANDADOMINIK ELAINE Date: 2022-11-24 19:35 Normal [facility] PROF 14(COMP METB)on 023 Albumin [Mass/Vol] 2.7 g/dL Critically low 3.4-5.0 [facility] [place] Comment on above: Performed By: #### B 12FOL, VITAD, IRON #### [facility] [address] [place] [address] Dr. Ekta Funk Albumin/Globulin [Mass ratio] 0.6 {ratio} Normal [facility] Comment on above: Performed By: #### B 12FOL, VITAD, IRON #### [facility] [address] [place] [address] Dr. Ekta Funk ALP [Catalytic activity/Vol] 85 U/L Normal 46-116 [facility] Comment on above: Performed By: #### B 12FOL, VITAD, IRON #### [facility] [address] [place] [address] Dr. Ekta Funk ALT [Catalytic activity/Vol] 18 U/L Normal 14-59 [facility] Comment on above: Performed By: #### B 12FOL, VITAD, IRON #### [facility] [address] [place] [address] Dr. Ekta Funk Anion gap [Moles/Vol] 18.9 mmol/L Normal [facility] [place] Comment on above: Performed By: #### B 12FOL, VITAD, IRON #### [facility] [address] [place] [address] Dr. Ekta Funk AST [Catalytic activity/Vol] 16 U/L Normal 15-37 [facility] Comment on above: Performed By: #### B 12FOL, VITAD, IRON #### [facility] [address] [place] [address] Dr. Ekta Funk Bilirubin [Mass/Vol] 0.4 mg/dL Normal 0.2-1.0 [facility] Comment on above: Performed By: #### B 12FOL, VITAD, IRON #### [facility] [address] [place] [address] Dr. Ekta Funk Calcium [Mass/Vol] 9.5 mg/dL Normal 8.5-10.1 [facility] Comment on above: Performed By: #### B 12FOL, VITAD, IRON #### [facility] [address] [place] [address] Dr. Ekta Funk Chloride [Moles/Vol] 108 mmol/L Critically high 98-107 [facility] Comment on above: Performed By: #### B 12FOL, VITAD, IRON #### [facility] [address] [place] [address] Dr. Ekta Funk CO2 [Moles/Vol] 21.1 mmol/L Normal 21.0-32.0 [facility] Comment on above: Performed By: #### B 12FOL, VITAD, IRON #### [facility] [address] [place] [address] Dr. Ekta Funk Creatinine [Mass/Vol] 2.08 mg/dL Critically high 0.55-1.02 [facility] Comment on above: Performed By: #### B 12FOL, VITAD, IRON #### [facility] [address] [place] [address] Dr. Ekta Funk EGFR-AF EGYPTIAN 28 mL/min/1.73m2 Critically low >=60 [facility] Comment on above: Performed By: #### B 12FOL, VITAD, IRON #### [facility] [address] [place] [address] Dr. Ekta Funk EGFR-NON AF EGYPTIAN 23 mL/min/1.73m2 Critically low >=60 [facility] Comment on above: Performed By: #### B 12FOL, VITAD, IRON #### [facility] [address] [place] [address] Dr. Ekta Funk Globulin (S) [Mass/Vol] 4.6 g/dL Normal [facility] Comment on above: Performed By: #### B 12FOL, VITAD, IRON #### [facility] [address] [place] [address] Dr. Ekta Funk Glucose [Mass/Vol] 119 mg/dL Critically high 74-106 [facility] Comment on above: Performed By: #### B 12FOL, VITAD, IRON #### [facility] [address] [address] [address] Ekta Funk Potassium [Moles/Vol] 5.0 mmol/L Normal 3.5-5.1 [facility] Comment on above: Performed By: #### B 12FOL, VITAD, IRON #### [facility] [address] [address] [address] Ekta Funk Protein [Mass/Vol] 7.3 g/dL Normal 6.4-8.2 [facility] Comment on above: Performed By: #### B 12FOL, VITAD, IRON #### [facility] [address] [place] [address] Dr. Ekta Funk Sodium [Moles/Vol] 143 mmol/L Normal 136-145 [facility] Comment on above: Performed By: #### B 12FOL, VITAD, IRON #### [facility] [address] [address] [address] Ekta Funk Urea nitrogen [Mass/Vol] 37.0 mg/dL Critically high 7.0-18.0 [facility] Comment on above: Performed By: #### B 12FOL, VITAD, IRON #### [facility] [address] [place] [address] Dr. Ekta Funk Urea nitrogen/Creatinine [Mass ratio] 17.8 mg/mg Normal [facility] Comment on above: Performed By: #### B 12FOL, VITAD, IRON #### [facility] [address] [place] [address] Dr. Ekta Funk TROPONIN, HIGH SENSITIVITYon 11-24-2022 HSTROP 14.1 pg/mL Normal 4.0-51.3 [facility] Comment on above: Result Comment: CUT- OFF POINTS HAVE BEEN ESTABLISHED BASED ON THE FOURTH UNIVERSAL DEFINITIONS OF MYOCARDIAL INFARCTION. THE UPPER REFERENCE LIMIT (URL) OF TROPONIN, DEFINED THE 99TH PERCENTILE OF cTnI DISTRIBUTION IN A REFERENCE POPULATION, HAS BEEN CONFIRMED THE DECISION THRESHOLD FOR MA DIAGNOSIS. Performed By: #### B 12FOL, VITAD, IRON #### [facility] [address] [place] [address] Dr. Ekta Funk TSHon 11-24-2022 TSH 1.184 uIU/mL Normal 0.358-3.740 [facility] Comment on above: Performed By: #### B 12FOL, VITAD, IRON #### [facility] [address] [place] [address] Dr. Ekta Funk XR CHEST 1 Von [...] NATALIIA TATE Date: 2022-11-24 11:00 Normal [facility] BNPon 11-13-2022 Natriuretic peptide B (Bld) [Mass/Vol] 565.0 pg/mL Normal <=900.0 [facility] Comment on above: Performed By: #### I NSULIN #### [facility] [address] [place] [address] Dr. Ekta Funk CBC AUTO DIFFon 11-13-2022 BASO # 0.1 103/ul Normal 0.0-0.1 [facility] Comment on above: Performed By: #### C BC #### [facility] [address] [place] [address] Dr. Ekta Funk Basophils/100 WBC (Bld) 0.6 % Normal 0.2-2.0 [facility] Comment on above: Performed By: #### C BC #### [facility] [address] [place] [address] Dr. Ekta Funk EO # 0.4 103/ul Normal 0.0-0.7 [facility] Comment on above: Performed By: #### C BC #### [facility] [address] [place] [address] Dr. Ekta Funk Eosinophils/100 WBC (Bld) 3.7 % Normal 0.9-7.0 [facility] Comment on above: Performed By: #### C BC #### [facility] [address] [place] [address] Dr. Ekta Funk Erythrocyte distribution width (RBC) [Ratio] 13.2 % Normal 11.0-15.0 [facility] Comment on above: Performed By: #### C BC #### [facility] [address] [place] [address] Dr. Ekta Funk Hematocrit (Bld) [Volume fraction] 36.7 % Normal 36.0-48.0 [facility] Comment on above: Performed By: #### C BC #### [facility] [address] [place] [address] Dr. Ekta Funk Hemoglobin (Bld) [Mass/Vol] 12.4 g/dL Normal 12.0-16.0 [facility] Comment on above: Performed By: #### C BC #### [facility] [address] [place] [address] Dr. Ekta Funk IG # 0.10 10e3/ul Critically high 0.00-0.03 [facility] Comment on above: Performed By: #### C BC #### [facility] [address] [place] [address] Dr. Ekta Funk IG % 1.0 % Critically high 0.0-0.5 [facility] Comment on above: Performed By: #### C BC #### [facility] [address] [place] [address] Dr. Ekta Funk LYMPH # 1.5 103/ul Normal 1.2-3.8 [facility] Comment on above: Performed By: #### C BC #### [facility] [address] [place] [address] Dr. Ekta Funk Lymphocytes/100 WBC (Bld) 14.9 % Critically low 20.5-60.0 [facility] Comment on above: Performed By: #### C BC #### [facility] [address] [place] [address] Dr. Ekta Funk MANUAL DIFF REQ NO Normal [facility] Comment on above: Performed By: #### C BC #### [facility] [address] [place] [address] Dr. Ekta Funk MCH (RBC) [Entitic mass] 32.8 pg Normal 26.7-34.0 [facility] Comment on above: Performed By: #### C BC #### [facility] [address] [place] [address] Dr. Ekta Funk MCHC (RBC) [Mass/Vol] 33.8 g/dL Normal 29.9-35.2 [facility] Comment on above: Performed By: #### C BC #### [facility] [address] [place] [address] Dr. Ekta Funk MCV (RBC) [Entitic vol] 97.1 fL Normal 81.0-99.0 [facility] Comment on above: Performed By: #### C BC #### [facility] [address] [place] [address] Dr. Ekta Funk MONO # 0.8 103/ul Normal 0.3-0.8 [facility] Comment on above: Performed By: #### C BC #### [facility] [address] [place] [address] Dr. Ekta Funk Monocytes/100 WBC (Bld) 7.7 % Normal 1.7-12.0 [facility] Comment on above: Performed By: #### C BC #### [facility] [address] [place] [address] Dr. Ekta Funk NEUT # 7.3 103/ul Critically high 1.4-6.5 [facility] Comment on above: Performed By: #### C BC #### [facility] [address] [place] [address] Dr. Ekta Funk Neutrophils/100 WBC (Bld) 72.1 % Normal 43.0-75.0 [facility] Comment on above: Performed By: #### C BC #### [facility] [address] [address] [address] Ekta Funk Platelet mean volume (Bld) [Entitic vol] 9.4 fL Critically low 9.5-13.5 [facility] Comment on above: Performed By: #### C BC #### [facility] [address] [address] [address] Ekta Funk PLT 251 103/ul Normal 150-450 [facility] Comment on above: Performed By: #### C BC #### [facility] [address] [address] [address] Ekta Funk RBC 3.78 106/ul Critically low 4.20-5.40 [facility] Comment on above: Performed By: #### C BC #### [facility] [address] [place] [address] Dr. Ekta Funk WBC 10.1 103/ul Normal 4.0-11.0 [facility] Comment on above: Performed By: #### C BC #### [facility] [address] [place] [address] Dr. Ekta Funk FREE THYROXINE INDEX T7on FTI 2.73 Normal 1.30-4.50 [facility] Comment on above: Performed By: #### I NSULIN #### [facility] [address] [place] [address] Dr. Ekta Funk T3U 35.0 % Normal 30.0-39.0 [facility] Comment on above: Performed By: #### I NSULIN #### [facility] [address] [address] [address] Ekta Funk T4 [Mass/Vol] 7.80 ug/dL Normal 4.80-13.90 [facility] Comment on above: Performed By: #### I NSULIN #### [facility] [address] [place] [address] Dr. Ekta Funk GLYCOHEMOGLOBIN A1Con 2022 ADA RECOMMENDATION SEE BELOW Normal [facility] Comment on above: Result Comment: ADA RECOMMENDED LIMIT 4.0 - 6.0 ADA THERAPEUTIC TARGET < 7.0 ACTION SUGGESTED > 7.0 Performed By: #### B 12FOL, VITAD, IRON #### [facility] [address] [place] [address] Dr. Ekta Funk Glucose [Mass/Vol] 134 mg/dL Normal [facility] Comment on above: Performed By: #### B 12FOL, VITAD, IRON #### [facility] [address] [place] [address] Dr. Ekta Funk HbA1c (Bld) [Mass fraction] 6.3 % Critically high 4.5-6.2 [facility] Comment on above: Performed By: #### B 12FOL, VITAD, IRON #### [facility] [address] [place] [address] Dr. Ekta Funk IRONon 11-13-2022 Iron [Mass/Vol] 55.0 ug/dL Normal 50.0-170.0 [facility] Comment on above: Performed By: #### B 12FOL, VITAD, IRON #### [facility] [address] [place] [address] Dr. Ekta Funk LIPID PROFILEon 11-13-2022 CHOL-HDL RATIO NORM SEE BELOW Normal [facility] Comment on above: Result Comment: 3.3 - 4.4 LOW RISK 4.4 - 7.1 AVERAGE RISK 7.1 - 11.0 MODERATE RISK >11.0 HIGH RISK Performed By: #### I NSULIN #### [facility] [address] [place] [address] Dr. Ekta Funk Cholesterol [Mass/Vol] 294 mg/dL Critically high <=200 [facility] Comment on above: Performed By: #### I NSULIN #### [facility] [address] [place] [address] Dr. Ekta Funk Cholesterol in HDL [Mass/Vol] 64 mg/dL Critically high 40-60 [facility] Comment on above: Performed By: #### I NSULIN #### [facility] [address] [place] [address] Dr. Ekta Funk Cholesterol in LDL [Mass/Vol] 197.2 mg/dL Normal [facility] Comment on above: Performed By: #### I NSULIN #### [facility] [address] [address] [address] Ekta Funk Cholesterol.total/Chol esterol in HDL [Mass ratio] 4.6 {ratio} Normal [facility] Comment on above: Performed By: #### I NSULIN #### [facility] [address] [address] [address] Ekta Funk HDL NORMAL > or = 60 mg/dl - LOW CARDIOVASCULAR RISK <40 mg/dl - HIGH CARDIOVASCULAR RISK Normal [facility] Comment on above: Performed By: #### I NSULIN #### [facility] [address] [place] [address] Dr. Ekta Funk LDL CALC NORMAL SEE BELOW Normal [facility] Comment on above: Result Comment: <100 mg/dl OPTIMAL 100 - 129 mg/dl NEAR OR ABOVE OPTIMAL 130 - 159 mg/dl BORDERLINE HIGH 160 - 189 mg/dl HIGH >190 mg/dl VERY HIGH Performed By: #### I NSULIN #### [facility] [address] [place] [address] Dr. Ekta Funk Triglyceride [Mass/Vol] 164 mg/dL Critically high <=150 [facility] Comment on above: Performed By: #### I NSULIN #### [facility] [address] [place] [address] Dr. Ekta Funk VLDL CALC 32.8 mg/dL Normal [facility] Comment on above: Performed By: #### I NSULIN #### [facility] [address] [place] [address] Dr. Ekta Funk PROF 14(COMP METB)on 023 Albumin [Mass/Vol] 3.0 g/dL Critically low 3.4-5.0 [facility] Comment on above: Performed By: #### I NSULIN #### [facility] [address] [place] [address] Dr. Ekta Funk Albumin/Globulin [Mass ratio] 0.6 {ratio} Normal [facility] Comment on above: Performed By: #### I NSULIN #### [facility] [address] [address] [address] Ekta Funk ALP [Catalytic activity/Vol] 92 U/L Normal 46-116 [facility] Comment on above: Performed By: #### I NSULIN #### [facility] [address] [address] [address] Ekta Funk ALT [Catalytic activity/Vol] 26 U/L Normal 14-59 [facility] Comment on above: Performed By: #### I NSULIN #### [facility] [address] [address] [address] Ekta Funk Anion gap [Moles/Vol] 16.2 mmol/L Normal [facility] [place] Comment on above: Performed By: #### I NSULIN #### [facility] [address] [place] [address] Dr. Ekta Funk AST [Catalytic activity/Vol] 16 U/L Normal 15-37 [facility] Comment on above: Performed By: #### I NSULIN #### [facility] [address] [address] [address] Ekta Funk Bilirubin [Mass/Vol] 0.5 mg/dL Normal 0.2-1.0 [facility] Comment on above: Performed By: #### I NSULIN #### [facility] [facility] [address] [place] [address] Dr. Ekta Funk Calcium [Mass/Vol] 9.7 mg/dL Normal 8.5-10.1 [facility] Comment on above: Performed By: #### I NSULIN #### [facility] [address] [address] [address] Ekta Funk Chloride [Moles/Vol] 105 mmol/L Normal 98-107 [facility] Comment on above: Performed By: #### I NSULIN #### [facility] [address] [address] [address] Ekta Funk CO2 [Moles/Vol] 24.9 mmol/L Normal 21.0-32.0 [facility] Comment on above: Performed By: #### I NSULIN #### [facility] [address] [address] [address] Ekta Funk Creatinine [Mass/Vol] 2.18 mg/dL Critically high 0.55-1.02 [facility] Comment on above: Performed By: #### I NSULIN #### [facility] [address] [address] [address] Ekta Funk EGFR-AF EGYPTIAN 27 mL/min/1.73m2 Critically low >=60 [facility] Comment on above: Performed By: #### I NSULIN #### [facility] [address] [address] [address] Ekta Funk EGFR-NON AF EGYPTIAN 22 mL/min/1.73m2 Critically low >=60 [facility] Comment on above: Performed By: #### I NSULIN #### [facility] [address] [address] [address] Ekta Funk Globulin (S) [Mass/Vol] 4.7 g/dL Normal [facility] Comment on above: Performed By: #### I NSULIN #### [facility] [address] [address] [address] Ekta Funk Glucose [Mass/Vol] 114 mg/dL Critically high 74-106 [facility] Comment on above: Performed By: #### I NSULIN #### [facility] [address] [address] [address] Ekta Funk Potassium [Moles/Vol] 5.1 mmol/L Normal 3.5-5.1 [facility] Comment on above: Performed By: #### I NSULIN #### [facility] [address] [address] [address] Ekta Funk Protein [Mass/Vol] 7.7 g/dL Normal 6.4-8.2 [facility] Comment on above: Performed By: #### I NSULIN #### [facility] [address] [address] [address] Ekta Funk Sodium [Moles/Vol] 141 mmol/L Normal 136-145 [facility] Comment on above: Performed By: #### I NSULIN #### [facility] [address] [address] [address] Ekta Funk Urea nitrogen [Mass/Vol] 51.0 mg/dL Critically high 7.0-18.0 [facility] Comment on above: Performed By: #### I NSULIN #### [facility] [address] [address] [address] Ekta Funk Urea nitrogen/Creatinine [Mass ratio] 23.4 mg/mg Normal [facility] Comment on above: Performed By: #### I NSULIN #### [facility] [address] [address] [address] Ekta Funk TSHon 11-13-2022 TSH 0.935 uIU/mL Normal 0.358-3.740 [facility] Comment on above: Performed By: #### I NSULIN #### [facility] [address] [place] [address] Dr. Ekta Funk XR CHEST 2 Von [...] by: GODWIN BECK Date: 2022-11-13 15:[address] [facility] PROF 14(COMP METB)on 023 Albumin [Mass/Vol] 3.0 g/dL Critically low 3.4-5.0 [facility] Comment on above: Performed By: #### B 12FOL, VITAD, IRON #### [facility] [address] [place] [address] Dr. Ekta Funk Albumin/Globulin [Mass ratio] 0.7 {ratio} Normal [facility] Comment on above: Performed By: #### B 12FOL, VITAD, IRON #### [facility] [address] [address] [address] Ekta Funk ALP [Catalytic activity/Vol] 89 U/L Normal 46-116 [facility] Comment on above: Performed By: #### B 12FOL, VITAD, IRON #### [facility] [address] [address] [address] Ekta Funk ALT [Catalytic activity/Vol] 29 U/L Normal 14-59 [facility] Comment on above: Performed By: #### B 12FOL, VITAD, IRON #### [facility] [address] [address] [address] Ekta Funk Anion gap [Moles/Vol] 15.2 mmol/L Normal [facility] Comment on above: Performed By: #### B 12FOL, VITAD, IRON #### [facility] [address] [place] [address] Dr. Ekta Funk AST [Catalytic activity/Vol] 14 U/L Critically low 15-37 [facility] Comment on above: Performed By: #### B 12FOL, VITAD, IRON #### [facility] [address] [address] [address] Ekta Funk Bilirubin [Mass/Vol] 0.4 mg/dL Normal 0.2-1.0 [facility] Comment on above: Performed By: #### B 12FOL, VITAD, IRON #### [facility] [address] [address] [address] Ekta Funk Calcium [Mass/Vol] 9.1 mg/dL Normal 8.5-10.1 [facility] Comment on above: Performed By: #### B 12FOL, VITAD, IRON #### [facility] [address] [place] [address] Dr. Ekta Funk Chloride [Moles/Vol] 106 mmol/L Normal 98-107 [facility] Comment on above: Performed By: #### B 12FOL, VITAD, IRON #### [facility] [address] [address] [address] Ekta Funk CO2 [Moles/Vol] 24.2 mmol/L Normal 21.0-32.0 [facility] Comment on above: Performed By: #### B 12FOL, VITAD, IRON #### [facility] [address] [place] [address] Dr. Ekta Funk Creatinine [Mass/Vol] 1.89 mg/dL Critically high 0.55-1.02 [facility] Comment on above: Performed By: #### B 12FOL, VITAD, IRON #### [facility] [address] [place] [address] Dr. Ekta Funk EGFR-AF EGYPTIAN 32 mL/min/1.73m2 Critically low >=60 [facility] Comment on above: Performed By: #### B 12FOL, VITAD, IRON #### [facility] [address] [place] [address] Dr. Ekta Funk EGFR-NON AF EGYPTIAN 26 mL/min/1.73m2 Critically low >=60 [facility] Comment on above: Performed By: #### B 12FOL, VITAD, IRON #### [facility] [address] [place] [address] Dr. Ekta Funk Globulin (S) [Mass/Vol] 4.1 g/dL Normal [facility] Comment on above: Performed By: #### B 12FOL, VITAD, IRON #### [facility] [address] [place] [address] Dr. Ekta Funk Glucose [Mass/Vol] 108 mg/dL Critically high 74-106 [facility] Comment on above: Performed By: #### B 12FOL, VITAD, IRON #### [facility] [address] [place] [address] Dr. Ekta Funk Potassium [Moles/Vol] 4.4 mmol/L Normal 3.5-5.1 [facility] Comment on above: Performed By: #### B 12FOL, VITAD, IRON #### [facility] [address] [place] [address] Dr. Ekta Funk Protein [Mass/Vol] 7.1 g/dL Normal 6.4-8.2 [facility] Comment on above: Performed By: #### B 12FOL, VITAD, IRON #### [facility] [address] [address] [address] Ekta Funk Sodium [Moles/Vol] 141 mmol/L Normal 136-145 [facility] Comment on above: Performed By: #### B 12FOL, VITAD, IRON #### [facility] [address] [place] [address] Dr. Ekta Funk Urea nitrogen [Mass/Vol] 40.0 mg/dL Critically high 7.0-18.0 [facility] Comment on above: Performed By: #### B 12FOL, VITAD, IRON #### [facility] [address] [place] [address] Dr. Ekta Funk Urea nitrogen/Creatinine [Mass ratio] 21.2 mg/mg Normal [facility] Comment on above: Performed By: #### B 12FOL, VITAD, IRON #### [facility] [address] [place] [address] Dr. Ekta Funk BNPon 10-23-2022 Natriuretic peptide B (Bld) [Mass/Vol] 507.0 pg/mL Normal <=900.0 [facility] Comment on above: Performed By: #### B 12FOL, VITAD, IRON #### [facility] [address] [place] [address] Dr. Ekta Funk CBC AUTO DIFFon 10-23-2022 BASO # 0.0 103/ul Normal 0.0-0.1 [facility] Comment on above: Performed By: #### C BC #### [facility] [address] [place] [address] Dr. Ekta Funk Basophils/100 WBC (Bld) 0.2 % Normal 0.2-2.0 [facility] Comment on above: Performed By: #### C BC #### [facility] [address] [place] [address] Dr. Ekta Funk EO # 0.1 103/ul Normal 0.0-0.7 [facility] Comment on above: Performed By: #### C BC #### [facility] [address] [place] [address] Dr. Ekta Funk Eosinophils/100 WBC (Bld) 1.1 % Normal 0.9-7.0 [facility] Comment on above: Performed By: #### C BC #### [facility] [address] [place] [address] Dr. Ekta Funk Erythrocyte distribution width (RBC) [Ratio] 12.8 % Normal 11.0-15.0 [facility] Comment on above: Performed By: #### C BC #### [facility] [address] [place] [address] Dr. Ekta Funk Hematocrit (Bld) [Volume fraction] 37.1 % Normal 36.0-48.0 [facility] Comment on above: Performed By: #### C BC #### [facility] [address] [place] [address] Dr. Ekta Funk Hemoglobin (Bld) [Mass/Vol] 13.0 g/dL Normal 12.0-16.0 [facility] Comment on above: Performed By: #### C BC #### [facility] [address] [place] [address] Dr. Ekta Funk IG # 0.11 10e3/ul Critically high 0.00-0.03 [facility] Comment on above: Performed By: #### C BC #### [facility] [address] [place] [address] Dr. Ekta Funk IG % 1.1 % Critically high 0.0-0.5 [facility] Comment on above: Performed By: #### C BC #### [facility] [address] [place] [address] Dr. Ekta Funk LYMPH # 1.6 103/ul Normal 1.2-3.8 [facility] Comment on above: Performed By: #### C BC #### [facility] [address] [place] [address] Dr. Ekta Funk Lymphocytes/100 WBC (Bld) 15.6 % Critically low 20.5-60.0 [facility] Comment on above: Performed By: #### C BC #### [facility] [address] [place] [address] Dr. Ekta Funk MANUAL DIFF REQ NO Normal [facility] Comment on above: Performed By: #### C BC #### [facility] [address] [place] [address] Dr. Ekta Funk MCH (RBC) [Entitic mass] 32.8 pg Normal 26.7-34.0 [facility] Comment on above: Performed By: #### C BC #### [facility] [address] [place] [address] Dr. Ekta Funk MCHC (RBC) [Mass/Vol] 35.0 g/dL Normal 29.9-35.2 [facility] Comment on above: Performed By: #### C BC #### [facility] [address] [place] [address] Dr. Ekta Funk MCV (RBC) [Entitic vol] 93.7 fL Normal 81.0-99.0 [facility] Comment on above: Performed By: #### C BC #### [facility] [address] [place] [address] Dr. Ekta Funk MONO # 0.9 103/ul Critically high 0.3-0.8 [facility] Comment on above: Performed By: #### C BC #### [facility] [address] [place] [address] Dr. Ekta Funk Monocytes/100 WBC (Bld) 8.3 % Normal 1.7-12.0 [facility] Comment on above: Performed By: #### C BC #### [facility] [address] [place] [address] Dr. Ekta Funk NEUT # 7.5 103/ul Critically high 1.4-6.5 [facility] Comment on above: Performed By: #### C BC #### [facility] [address] [place] [address] Dr. Ekta Funk Neutrophils/100 WBC (Bld) 73.7 % Normal 43.0-75.0 [facility] Comment on above: Performed By: #### C BC #### [facility] [address] [place] [address] Dr. Ekta Funk Platelet mean volume (Bld) [Entitic vol] 10.3 fL Normal 9.5-13.5 [facility] Comment on above: Performed By: #### C BC #### [facility] [address] [place] [address] Dr. Ekta Funk PLT 135 103/ul Critically low 150-450 [facility] Comment on above: Performed By: #### C BC #### [facility] [address] [place] [address] Dr. Ekta Funk RBC 3.96 106/ul Critically low 4.20-5.40 [facility] Comment on above: Performed By: #### C BC #### [facility] [address] [place] [address] Dr. Ekta Funk WBC 10.2 103/ul Normal 4.0-11.0 [facility] Comment on above: Performed By: #### C BC #### [facility] [address] [place] [address] Dr. Ekta Funk PROF 14(COMP METB)on 023 Albumin [Mass/Vol] 2.7 g/dL Critically low 3.4-5.0 [facility] Comment on above: Performed By: #### B 12FOL, VITAD, IRON #### [facility] [address] [place] [address] Dr. Ekta Funk Albumin/Globulin [Mass ratio] 0.8 {ratio} Normal [facility] Comment on above: Performed By: #### B 12FOL, VITAD, IRON #### [facility] [address] [place] [address] Dr. Ekta Funk ALP [Catalytic activity/Vol] 74 U/L Normal 46-116 [facility] Comment on above: Performed By: #### B 12FOL, VITAD, IRON #### [facility] [address] [place] [address] Dr. Ekta Funk ALT [Catalytic activity/Vol] 26 U/L Normal 14-59 [facility] Comment on above: Performed By: #### B 12FOL, VITAD, IRON #### [facility] [address] [place] [address] Dr. Ekta Funk Anion gap [Moles/Vol] 16.5 mmol/L Normal [facility] Comment on above: Performed By: #### B 12FOL, VITAD, IRON #### [facility] [address] [place] [address] Dr. Ekta Funk AST [Catalytic activity/Vol] 15 U/L Normal 15-37 [facility] Comment on above: Performed By: #### B 12FOL, VITAD, IRON #### [facility] [address] [place] [address] Dr. Ekta Funk Bilirubin [Mass/Vol] 0.4 mg/dL Normal 0.2-1.0 [facility] Comment on above: Performed By: #### B 12FOL, VITAD, IRON #### [facility] [address] [place] [address] Dr. Ekta Funk Calcium [Mass/Vol] 8.1 mg/dL Critically low 8.5-10.1 [facility] Comment on above: Performed By: #### B 12FOL, VITAD, IRON #### [facility] [address] [place] [address] Dr. Ekta Funk Chloride [Moles/Vol] 96 mmol/L Critically low 98-107 [facility] Comment on above: Performed By: #### B 12FOL, VITAD, IRON #### [facility] [address] [place] [address] Dr. Ekta Funk CO2 [Moles/Vol] 26.1 mmol/L Normal 21.0-32.0 [facility] Comment on above: Performed By: #### B 12FOL, VITAD, IRON #### [facility] [address] [place] [address] Dr. Ekta Funk Creatinine [Mass/Vol] 3.28 mg/dL Critically high 0.55-1.02 [facility] Comment on above: Performed By: #### B 12FOL, VITAD, IRON #### [facility] [address] [place] [address] Dr. Ekta Funk EGFR-AF EGYPTIAN 17 mL/min/1.73m2 Critically low >=60 [facility] Comment on above: Performed By: #### B 12FOL, VITAD, IRON #### [facility] [address] [place] [address] Dr. Ekta Funk EGFR-NON AF EGYPTIAN 14 mL/min/1.73m2 Critically low >=60 [facility] Comment on above: Performed By: #### B 12FOL, VITAD, IRON #### [facility] [address] [place] [address] Dr. Ekta Funk Globulin (S) [Mass/Vol] 3.6 g/dL Normal [facility] Comment on above: Performed By: #### B 12FOL, VITAD, IRON #### [facility] [address] [place] [address] Dr. Ekta Funk Glucose [Mass/Vol] 132 mg/dL Critically high 74-106 T [facility] Comment on above: Performed By: #### B 12FOL, VITAD, IRON #### [facility] [address] [place] [address] Dr. Ekta Funk Potassium [Moles/Vol] 4.6 mmol/L Normal 3.5-5.1 [facility] Comment on above: Performed By: #### B 12FOL, VITAD, IRON #### [facility] [address] [place] [address] Dr. Ekta Funk Protein [Mass/Vol] 6.3 g/dL Critically low 6.4-8.2 [facility] Comment on above: Performed By: #### B 12FOL, VITAD, IRON #### [facility] [address] [place] [address] Dr. Ekta Funk Sodium [Moles/Vol] 134 mmol/L Critically low 136-145 [facility] Comment on above: Performed By: #### B 12FOL, VITAD, IRON #### [facility] [address] [place] [address] Dr. Ekta Funk Urea nitrogen [Mass/Vol] 74.0 mg/dL Critically high 7.0-18.0 [facility] Comment on above: Performed By: #### B 12FOL, VITAD, IRON #### [facility] [address] [place] [address] Dr. Ekta Funk Urea nitrogen/Creatinine [Mass ratio] 22.6 mg/mg Normal [facility] Comment on above: Performed By: #### B 12FOL, VITAD, IRON #### [facility] [address] [place] [address] Dr. Ekta Funk BNPon 10-22-2022 Natriuretic peptide B (Bld) [Mass/Vol] 1411.0 pg/mL Critically high <=900.0 [facility] Comment on above: Performed By: #### B 12FOL, VITAD, IRON #### [facility] [address] [place] [address] Dr. Ekta Funk CBC AUTO DIFFon 10-22-2022 BASO # 0.0 103/ul Normal 0.0-0.1 [facility] Comment on above: Performed By: #### B 12FOL, VITAD, IRON #### [facility] [address] [place] [address] Dr. Ekta Funk Basophils/100 WBC (Bld) 0.3 % Normal 0.2-2.0 [facility] Comment on above: Performed By: #### B 12FOL, VITAD, IRON #### [facility] [address] [place] [address] Dr. Ekta Funk EO # 0.1 103/ul Normal 0.0-0.7 [facility] Comment on above: Performed By: #### B 12FOL, VITAD, IRON #### [facility] [address] [place] [address] Dr. Ekta Funk Eosinophils/100 WBC (Bld) 0.6 % Critically low 0.9-7.0 [facility] Comment on above: Performed By: #### B 12FOL, VITAD, IRON #### [facility] [address] [place] [address] Dr. Ekta Funk Erythrocyte distribution width (RBC) [Ratio] 12.9 % Normal 11.0-15.0 [facility] Comment on above: Performed By: #### B 12FOL, VITAD, IRON #### [facility] [address] [address] [address] Ekta Funk Hematocrit (Bld) [Volume fraction] 40.8 % Normal 36.0-48.0 [facility] Comment on above: Performed By: #### B 12FOL, VITAD, IRON #### [facility] [address] [address] [address] Ekta Funk Hemoglobin (Bld) [Mass/Vol] 14.0 g/dL Normal 12.0-16.0 [facility] Comment on above: Performed By: #### B 12FOL, VITAD, IRON #### [facility] [address] [place] [address] Dr. Ekta Funk IG # 0.09 10e3/ul Critically high 0.00-0.03 [facility] Comment on above: Performed By: #### B 12FOL, VITAD, IRON #### [facility] [address] [address] [address] Ekta Funk IG % 0.8 % Critically high 0.0-0.5 [facility] Comment on above: Performed By: #### B 12FOL, VITAD, IRON #### [facility] [address] [address] [address] Ekta Funk LYMPH # 1.8 103/ul Normal 1.2-3.8 [facility] Comment on above: Performed By: #### B 12FOL, VITAD, IRON #### [facility] [address] [place] [address] Dr. Ekta Funk Lymphocytes/100 WBC (Bld) 16.2 % Critically low 20.5-60.0 [facility] Comment on above: Performed By: #### B 12FOL, VITAD, IRON #### [facility] [address] [address] [address] Ekta Funk MANUAL DIFF REQ NO Normal [facility] Comment on above: Performed By: #### B 12FOL, VITAD, IRON #### [facility] [address] [address] [address] Ekta Funk MCH (RBC) [Entitic mass] 32.3 pg Normal 26.7-34.0 [facility] Comment on above: Performed By: #### B 12FOL, VITAD, IRON #### [facility] [address] [place] [address] Dr. Ekta Funk MCHC (RBC) [Mass/Vol] 34.3 g/dL Normal 29.9-35.2 [facility] Comment on above: Performed By: #### B 12FOL, VITAD, IRON #### [facility] [address] [place] [address] Dr. Ekta Funk MCV (RBC) [Entitic vol] 94.2 fL Normal 81.0-99.0 [facility] Comment on above: Performed By: #### B 12FOL, VITAD, IRON #### [facility] [address] [place] [address] Dr. Ekta Funk MONO # 0.8 103/ul Normal 0.3-0.8 [facility] Comment on above: Performed By: #### B 12FOL, VITAD, IRON #### [facility] [address] [place] [address] Dr. Ekta Funk Monocytes/100 WBC (Bld) 7.3 % Normal 1.7-12.0 [facility] Comment on above: Performed By: #### B 12FOL, VITAD, IRON #### [facility] [address] [place] [address] Dr. Ekta Funk NEUT # 8.1 103/ul Critically high 1.4-6.5 [facility] Comment on above: Performed By: #### B 12FOL, VITAD, IRON #### [facility] [address] [place] [address] Dr. Ekta Funk Neutrophils/100 WBC (Bld) 74.8 % Normal 43.0-75.0 [facility] [facility] Comment on above: Performed By: #### B 12FOL, VITAD, IRON #### [facility] [address] [place] [address] Dr. Ekta Funk Platelet mean volume (Bld) [Entitic vol] 9.8 fL Normal 9.5-13.5 [facility] Comment on above: Performed By: #### B 12FOL, VITAD, IRON #### [facility] [address] [place] [address] Dr. Ekta Funk PLT 226 103/ul Normal 150-450 [facility] Comment on above: Performed By: #### B 12FOL, VITAD, IRON #### [facility] [address] [place] [address] Dr. Ekta Funk RBC 4.33 106/ul Normal 4.20-5.40 [facility] Comment on above: Performed By: #### B 12FOL, VITAD, IRON #### [facility] [address] [place] [address] Dr. Ekta Funk WBC 10.9 103/ul Normal 4.0-11.0 [facility] Comment on above: Performed By: #### B 12FOL, VITAD, IRON #### [facility] [address] [place] [address] Dr. Ekta Funk PROF 14(COMP METB)on 023 Albumin [Mass/Vol] 3.1 g/dL Critically low 3.4-5.0 [facility] Comment on above: Performed By: #### B 12FOL, VITAD, IRON #### [facility] [address] [place] [address] Dr. Ekta Funk Albumin/Globulin [Mass ratio] 0.7 {ratio} Normal [facility] Comment on above: Performed By: #### B 12FOL, VITAD, IRON #### [facility] [address] [place] [address] Dr. Ekta Funk ALP [Catalytic activity/Vol] 81 U/L Normal 46-116 [facility] Comment on above: Performed By: #### B 12FOL, VITAD, IRON #### [facility] [address] [address] [address] Ekta Funk ALT [Catalytic activity/Vol] 30 U/L Normal 14-59 [facility] Comment on above: Performed By: #### B 12FOL, VITAD, IRON #### [facility] [address] [place] [address] Dr. Ekta Funk Anion gap [Moles/Vol] 17.3 mmol/L Normal [facility] Comment on above: Performed By: #### B 12FOL, VITAD, IRON #### [facility] [address] [place] [address] Dr. Ekta Funk AST [Catalytic activity/Vol] 11 U/L Critically low 15-37 [facility] Comment on above: Performed By: #### B 12FOL, VITAD, IRON #### [facility] [address] [place] [address] Dr. Ekta Funk Bilirubin [Mass/Vol] 0.5 mg/dL Normal 0.2-1.0 [facility] Comment on above: Performed By: #### B 12FOL, VITAD, IRON #### [facility] [address] [place] [address] Dr. Ekta Funk Calcium [Mass/Vol] 8.6 mg/dL Normal 8.5-10.1 [facility] Comment on above: Performed By: #### B 12FOL, VITAD, IRON #### [facility] [address] [place] [address] Dr. Ekta Funk Chloride [Moles/Vol] 95 mmol/L Critically low 98-107 [facility] Comment on above: Performed By: #### B 12FOL, VITAD, IRON #### [facility] [address] [address] [address] Ekta Funk CO2 [Moles/Vol] 27.3 mmol/L Normal 21.0-32.0 [facility] Comment on above: Performed By: #### B 12FOL, VITAD, IRON #### [facility] [address] [address] [address] Ekta Funk Creatinine [Mass/Vol] 3.17 mg/dL Critically high 0.55-1.02 [facility] Comment on above: Performed By: #### B 12FOL, VITAD, IRON #### [facility] [address] [place] [address] Dr. Ekta Funk EGFR-AF EGYPTIAN 17 mL/min/1.73m2 Critically low >=60 [facility] Comment on above: Performed By: #### B 12FOL, VITAD, IRON #### [facility] [address] [place] [address] Dr. Ekta Funk EGFR-NON AF EGYPTIAN 14 mL/min/1.73m2 Critically low >=60 [facility] Comment on above: Performed By: #### B 12FOL, VITAD, IRON #### [facility] [address] [place] [address] Dr. Ekta Funk Globulin (S) [Mass/Vol] 4.6 g/dL Normal [facility] Comment on above: Performed By: #### B 12FOL, VITAD, IRON #### [facility] [address] [place] [address] Dr. Ekta Funk Glucose [Mass/Vol] 139 mg/dL Critically high 74-106 [facility] Comment on above: Performed By: #### B 12FOL, VITAD, IRON #### [facility] [address] [place] [address] Dr. Ekta Funk Potassium [Moles/Vol] 4.6 mmol/L Normal 3.5-5.1 [facility] Comment on above: Performed By: #### B 12FOL, VITAD, IRON #### [facility] [address] [place] [address] Dr. Ekta Funk Protein [Mass/Vol] 7.7 g/dL Normal 6.4-8.2 [facility] Comment on above: Performed By: #### B 12FOL, VITAD, IRON #### [facility] [address] [place] [address] Dr. Ekta Funk Sodium [Moles/Vol] 135 mmol/L Critically low 136-145 [facility] Comment on above: Performed By: #### B 12FOL, VITAD, IRON #### [facility] [address] [place] [address] Dr. Ekta Funk Urea nitrogen [Mass/Vol] 73.0 mg/dL Critically high 7.0-18.0 [facility] Comment on above: Performed By: #### B 12FOL, VITAD, IRON #### [facility] [address] [place] [address] Dr. Ekta Funk Urea nitrogen/Creatinine [Mass ratio] 23.0 mg/mg Normal [facility] Comment on above: Performed By: #### B 12FOL, VITAD, IRON #### [facility] [address] [place] [address] Dr. Ekta Funk BNPon 10-21-2022 Natriuretic peptide B (Bld) [Mass/Vol] 2007.0 pg/mL Critically high <=900.0 [facility] Comment on above: Performed By: #### C MP #### [facility] [address] [place] [address] Dr. Ekta Funk CBC AUTO DIFFon 10-21-2022 BASO # 0.0 103/ul Normal 0.0-0.1 [facility] Comment on above: Performed By: #### C BC #### [facility] [address] [place] [address] Dr. Ekta Funk Basophils/100 WBC (Bld) 0.2 % Normal 0.2-2.0 [facility] Comment on above: Performed By: #### C BC #### [facility] [address] [place] [address] Dr. Ekta Funk EO # 0.1 103/ul Normal 0.0-0.7 [facility] Comment on above: Performed By: #### C BC #### [facility] [address] [place] [address] Dr. Ekta Funk Eosinophils/100 WBC (Bld) 0.9 % Normal 0.9-7.0 [facility] Comment on above: Performed By: #### C BC #### [facility] [address] [place] [address] Dr. Ekta Funk Erythrocyte distribution width (RBC) [Ratio] 12.8 % Normal 11.0-15.0 [facility] Comment on above: Performed By: #### C BC #### [facility] [address] [place] [address] Dr. Ekta Funk Hematocrit (Bld) [Volume fraction] 38.8 % Normal 36.0-48.0 [facility] Comment on above: Performed By: #### C BC #### [facility] [address] [place] [address] Dr. Ekta Funk Hemoglobin (Bld) [Mass/Vol] 13.3 g/dL Normal 12.0-16.0 [facility] Comment on above: Performed By: #### C BC #### [facility] [address] [place] [address] Dr. Ekta Funk IG # 0.08 10e3/ul Critically high 0.00-0.03 [facility] Comment on above: Performed By: #### C BC #### [facility] [address] [place] [address] Dr. Ekta Funk IG % 0.8 % Critically high 0.0-0.5 [facility] Comment on above: Performed By: #### C BC #### [facility] [address] [place] [address] Dr. Ekta Funk LYMPH # 1.7 103/ul Normal 1.2-3.8 [facility] Comment on above: Performed By: #### C BC #### [facility] [address] [place] [address] Dr. Ekta Funk Lymphocytes/100 WBC (Bld) 17.3 % Critically low 20.5-60.0 [facility] Comment on above: Performed By: #### C BC #### [facility] [address] [place] [address] Dr. Ekta Funk MANUAL DIFF REQ NO Normal [facility] Comment on above: Performed By: #### C BC #### [facility] [address] [place] [address] Dr. Ekta Funk MCH (RBC) [Entitic mass] 32.1 pg Normal 26.7-34.0 [facility] Comment on above: Performed By: #### C BC #### [facility] [address] [place] [address] Dr. Ekta Funk MCHC (RBC) [Mass/Vol] 34.3 g/dL Normal 29.9-35.2 [facility] Comment on above: Performed By: #### C BC #### [facility] [address] [place] [address] Dr. Ekta Funk MCV (RBC) [Entitic vol] 93.7 fL Normal 81.0-99.0 [facility] Comment on above: Performed By: #### C BC #### [facility] [address] [place] [address] Dr. Ekta Funk MONO # 0.6 103/ul Normal 0.3-0.8 [facility] Comment on above: Performed By: #### C BC #### [facility] [address] [place] [address] Dr. Ekta Funk Monocytes/100 WBC (Bld) 6.4 % Normal 1.7-12.0 [facility] Comment on above: Performed By: #### C BC #### [facility] [address] [place] [address] Dr. Ekta Funk NEUT # 7.4 103/ul Critically high 1.4-6.5 [facility] Comment on above: Performed By: #### C BC #### [facility] [address] [place] [address] Dr. Ekta Funk Neutrophils/100 WBC (Bld) 74.4 % Normal 43.0-75.0 [facility] Comment on above: Performed By: #### C BC #### [facility] [address] [place] [address] Dr. Ekta Funk Platelet mean volume (Bld) [Entitic vol] 9.8 fL Normal 9.5-13.5 [facility] Comment on above: Performed By: #### C BC #### [facility] [address] [place] [address] Dr. Ekta Funk PLT 193 103/ul Normal 150-450 [facility] Comment on above: Performed By: #### C BC #### [facility] [address] [address] [address] Ekta Funk RBC 4.14 106/ul Critically low 4.20-5.40 [facility] Comment on above: Performed By: #### C BC #### [facility] [address] [address] [address] Ekta Funk WBC 9.9 103/ul Normal 4.0-11.0 [facility] Comment on above: Performed By: #### C BC #### [facility] [address] [address] [address] Ekta Funk PROF 14(COMP METB)on 023 Albumin [Mass/Vol] 3.2 g/dL Critically low 3.4-5.0 [facility] [place] Comment on above: Performed By: #### I NSULIN #### [facility] [address] [place] [address] Dr. Ekta Funk Albumin/Globulin [Mass ratio] 0.8 {ratio} Normal [facility] Comment on above: Performed By: #### I NSULIN #### [facility] [address] [place] [address] Dr. Ekta Funk ALP [Catalytic activity/Vol] 82 U/L Normal 46-116 [facility] Comment on above: Performed By: #### I NSULIN #### [facility] [address] [place] [address] Dr. Ekta Funk ALT [Catalytic activity/Vol] 38 U/L Normal 14-59 [facility] Comment on above: Performed By: #### I NSULIN #### [facility] [address] [address] [address] kEta Funk Anion gap [Moles/Vol] 19.1 mmol/L Normal [facility] [place] Comment on above: Performed By: #### I NSULIN #### [facility] [address] [place] [address] Dr. Ekta Funk AST [Catalytic activity/Vol] 19 U/L Normal 15-37 [facility] Comment on above: Performed By: #### I NSULIN #### [facility] [address] [address] [address] Ekta Funk Bilirubin [Mass/Vol] 0.4 mg/dL Normal 0.2-1.0 [facility] Comment on above: Performed By: #### I NSULIN #### [facility] [address] [address] [address] Ekta Funk Calcium [Mass/Vol] 9.2 mg/dL Normal 8.5-10.1 [facility] Comment on above: Performed By: #### I NSULIN #### [facility] [address] [address] [address] Ekta Funk Chloride [Moles/Vol] 98 mmol/L Normal 98-107 [facility] Comment on above: Performed By: #### I NSULIN #### [facility] [address] [address] [address] Ekta Funk CO2 [Moles/Vol] 26.4 mmol/L Normal 21.0-32.0 [facility] Comment on above: Performed By: #### I NSULIN #### [facility] [address] [address] [address] Ekta Funk Creatinine [Mass/Vol] 2.20 mg/dL Critically high 0.55-1.02 [facility] Comment on above: Performed By: #### I NSULIN #### [facility] [address] [address] [address] Ekta Funk EGFR-AF EGYPTIAN 26 mL/min/1.73m2 Critically low >=60 [facility] Comment on above: Performed By: #### I NSULIN #### [facility] [address] [address] [address] Ekta Funk EGFR-NON AF EGYPTIAN 22 mL/min/1.73m2 Critically low >=60 [facility] Comment on above: Performed By: #### I NSULIN #### [facility] [address] [address] [address] Ekta Funk Globulin (S) [Mass/Vol] 3.8 g/dL Normal [facility] Comment on above: Performed By: #### I NSULIN #### [facility] [address] [address] [address] Ekta Funk Glucose [Mass/Vol] 142 mg/dL Critically high 74-106 [facility] Comment on above: Performed By: #### I NSULIN #### [facility] [address] [address] [address] Ekta Funk Potassium [Moles/Vol] 4.5 mmol/L Normal 3.5-5.1 [facility] Comment on above: Performed By: #### I NSULIN #### [facility] [address] [place] [address] Dr. Ekta Funk Protein [Mass/Vol] 7.0 g/dL Normal 6.4-8.2 [facility] Comment on above: Performed By: #### I NSULIN #### [facility] [address] [place] [address] Dr. Ekta Funk Sodium [Moles/Vol] 139 mmol/L Normal 136-145 [facility] Comment on above: Performed By: #### I NSULIN #### [facility] [address] [place] [address] Dr. Ekta Funk Urea nitrogen [Mass/Vol] 57.0 mg/dL Critically high 7.0-18.0 [facility] Comment on above: Performed By: #### I NSULIN #### [facility] [address] [place] [address] Dr. Ekta Funk Urea nitrogen/Creatinine [Mass ratio] 25.9 mg/mg Normal [facility] Comment on above: Performed By: #### I NSULIN #### [facility] [address] [address] [address] Ekta Funk T3, TOTAL (TRIIODOTHYRONINE) on 10-21-2022 T3, TOTAL 63 ng/dL Critically low 71-180 [facility] Comment on above: Performed By: #### C MP #### [facility] [address] [place] [address] Dr. Ekta Funk XR ABD FLAT_UPon 10-21-2022 [...] suspicious abdominal findings. Electronically authenticated by: DANIEL PINEDA Date: 2022-10-21 11:[address] [facility] XR CHEST 2 Von 10-21-2022 [...] CHRISTIANO MORALES Date: 2022-10-21 11:[address] [facility] BNPon 10-20-2022 Natriuretic peptide B (Bld) [Mass/Vol] 2512.0 pg/mL Critically high <=900.0 [facility] Comment on above: Performed By: #### B 12FOL, VITAD, IRON #### [facility] [address] [address] [address] Ekta Funk CARDIAC BRITTANIE ADMITon 023 CK [Catalytic activity/Vol] 35 U/L Normal 26-192 [facility] Comment on above: Performed By: #### B 12FOL, VITAD, IRON #### [facility] [address] [address] [address] Ekta Funk CK.MB [Mass/Vol] 0.64 ng/mL Normal <=3.60 [facility] Comment on above: Performed By: #### B 12FOL, VITAD, IRON #### [facility] [address] [address] [address] Ekta Funk HSTROP 28.1 pg/mL Normal 4.0-51.3 [facility] Comment on above: Result Comment: CUT- OFF POINTS HAVE BEEN ESTABLISHED BASED ON THE FOURTH UNIVERSAL DEFINITIONS OF MYOCARDIAL INFARCTION. THE UPPER REFERENCE LIMIT (URL) OF TROPONIN, DEFINED THE 99TH PERCENTILE OF cTnI DISTRIBUTION IN A REFERENCE POPULATION, HAS BEEN CONFIRMED THE DECISION THRESHOLD FOR MA DIAGNOSIS. Performed By: #### B 12FOL, VITAD, IRON #### [facility] [address] [place] [address] Dr. Ekta Funk EVELYN 57 ng/mL Normal 9-82 [facility] Comment on above: Performed By: #### B 12FOL, VITAD, IRON #### [facility] [address] [place] [address] Dr. Ekta Funk CBC AUTO DIFFon 10-20-2022 BASO # 0.0 103/ul Normal 0.0-0.1 [facility] Comment on above: Performed By: #### C BC #### [facility] [address] [place] [address] Dr. Ekta Funk Basophils/100 WBC (Bld) 0.2 % Normal 0.2-2.0 [facility] Comment on above: Performed By: #### C BC #### [facility] [address] [place] [address] Dr. Ekta Funk EO # 0.2 103/ul Normal 0.0-0.7 [facility] Comment on above: Performed By: #### C BC #### [facility] [address] [place] [address] Dr. Ekta Funk Eosinophils/100 WBC (Bld) 1.4 % Normal 0.9-7.0 [facility] Comment on above: Performed By: #### C BC #### [facility] [address] [place] [address] Dr. Ekta Funk Erythrocyte distribution width (RBC) [Ratio] 12.9 % Normal 11.0-15.0 [facility] Comment on above: Performed By: #### C BC #### [facility] [address] [place] [address] Dr. Ekta Funk Hematocrit (Bld) [Volume fraction] 34.7 % Critically low 36.0-48.0 [facility] Comment on above: Performed By: #### C BC #### [facility] [address] [address] [address] Ekta Funk Hemoglobin (Bld) [Mass/Vol] 11.8 g/dL Critically low 12.0-16.0 [facility] Comment on above: Performed By: #### C BC #### [facility] [address] [address] [address] Ekta Funk IG # 0.09 10e3/ul Critically high 0.00-0.03 [facility] Comment on above: Performed By: #### C BC #### [facility] [address] [place] [address] Dr. Ekta Funk IG % 0.8 % Critically high 0.0-0.5 [facility] Comment on above: Performed By: #### C BC #### [facility] [address] [address] [address] Ekta Funk LYMPH # 1.9 103/ul Normal 1.2-3.8 [facility] Comment on above: Performed By: #### C BC #### [facility] [address] [place] [address] Dr. Ekta Funk Lymphocytes/100 WBC (Bld) 16.1 % Critically low 20.5-60.0 [facility] Comment on above: Performed By: #### C BC #### [facility] [address] [place] [address] Dr. Ekta Funk MANUAL DIFF REQ NO Normal [facility] Comment on above: Performed By: #### C BC #### [facility] [address] [address] [address] Ekta Funk MCH (RBC) [Entitic mass] 32.6 pg Normal 26.7-34.0 [facility] Comment on above: Performed By: #### C BC #### [facility] [address] [place] [address] Dr. Ekta Funk MCHC (RBC) [Mass/Vol] 34.0 g/dL Normal 29.9-35.2 [facility] Comment on above: Performed By: #### C BC #### [facility] [address] [place] [address] Dr. Ekta Funk MCV (RBC) [Entitic vol] 95.9 fL Normal 81.0-99.0 [facility] Comment on above: Performed By: #### C BC #### [facility] [address] [place] [address] Dr. Ekta Funk MONO # 0.8 103/ul Normal 0.3-0.8 [facility] Comment on above: Performed By: #### C BC #### [facility] [address] [place] [address] Dr. Ekta Funk Monocytes/100 WBC (Bld) 7.0 % Normal 1.7-12.0 [facility] Comment on above: Performed By: #### C BC #### [facility] [address] [place] [address] Dr. Ekta Funk NEUT # 8.8 103/ul Critically high 1.4-6.5 [facility] Comment on above: Performed By: #### C BC #### [facility] [address] [place] [address] Dr. Ekta Funk Neutrophils/100 WBC (Bld) 74.5 % Normal 43.0-75.0 [facility] Comment on above: Performed By: #### C BC #### [facility] [address] [place] [address] Dr. Ekta Funk Platelet mean volume (Bld) [Entitic vol] 9.8 fL Normal 9.5-13.5 [facility] Comment on above: Performed By: #### C BC #### [facility] [address] [place] [address] Dr. Ekta Funk PLT 203 103/ul Normal 150-450 [facility] Comment on above: Performed By: #### C BC #### [facility] [address] [place], [place] [id number] Dr. Ekta Funk RBC 3.62 106/ul Critically low 4.20-5.40 [facility] Comment on above: Performed By: #### C BC #### [facility] [address] [address] [address] Ekta Funk WBC 11.8 103/ul Critically high 4.0-11.0 [facility] Comment on above: Performed By: #### C BC #### [facility] [address] [place], [place] [address] Dr. Ekta Funk CULTURE URINEon 10-20-2022 CULTURE URINE Culture Observations: NO GROWTH. Normal [facility] [facility] Comment on above: Performed By: #### I NSULIN #### [facility] [address] [address] [address] Ekta Funk Covid-19 PCR ([facility])on 10-11 SARS-CoV-2 (COVID-19) RNA GANESH+probe Ql (Unsp spec) Not detected Normal NOT DETECTED [facility] Comment on above: Result Comment: [...] for this test is supported by the [place] of Health and Human Service's declaration that [...] By: #### B 12FOL, VITAD, IRON #### [facility] [address] [address] [address] Ekta Funk ECHOCARDIO M/2D COMPLETEon 0 10-20-2022 ECHOCARDIO M/2D COMPLETE Patient: SHEILA MAC Exam Date: 10/20/2022 : 1950 Gender:F Ordering : DR KRZYSZTOF THOMPSON . Admission #: [id number] Family : Order #: [id number] CLICK HERE TO VIEW EXAM ECHOCARDIOGRAM REPORT [...] Mckay M.D. on 10/20/2022 at 14:[address] [facility] PROF 14(COMP METB)on 023 Albumin [Mass/Vol] 2.8 g/dL Critically low 3.4-5.0 Th [facility] Comment on above: Performed By: #### B 12FOL, VITAD, IRON #### [facility] [address] [address] [address] Ekta uFnk Albumin/Globulin [Mass ratio] 0.7 {ratio} Normal [facility] Comment on above: Performed By: #### B 12FOL, VITAD, IRON #### [facility] [address] [address] [address] Ekta Funk ALP [Catalytic activity/Vol] 84 U/L Normal 46-116 [facility] Comment on above: Performed By: #### B 12FOL, VITAD, IRON #### [facility] [address] [address] [address] Ekta Funk ALT [Catalytic activity/Vol] 29 U/L Normal 14-59 [facility] Comment on above: Performed By: #### B 12FOL, VITAD, IRON #### [facility] [address] [place] [address] Dr. Ekta Funk Anion gap [Moles/Vol] 15.9 mmol/L Normal Th e [facility] Comment on above: Performed By: #### B 12FOL, VITAD, IRON #### [facility] [address] [place] [address] Dr. Ekta Funk AST [Catalytic activity/Vol] 15 U/L Normal 15-37 [facility] Comment on above: Performed By: #### B 12FOL, VITAD, IRON #### [facility] [address] [place] [address] Dr. Ekta Funk Bilirubin [Mass/Vol] 0.3 mg/dL Normal 0.2-1.0 [facility] Comment on above: Performed By: #### B 12FOL, VITAD, IRON #### [facility] [address] [place] [address] Dr. Ekta Funk Calcium [Mass/Vol] 8.9 mg/dL Normal 8.5-10.1 [facility] Comment on above: Performed By: #### B 12FOL, VITAD, IRON #### [facility] [address] [place] [address] Dr. Ekta Funk Chloride [Moles/Vol] 103 mmol/L Normal 98-107 [facility] Comment on above: Performed By: #### B 12FOL, VITAD, IRON #### [facility] [address] [place] [address] Dr. Ekta Funk CO2 [Moles/Vol] 26.3 mmol/L Normal 21.0-32.0 [facility] Comment on above: Performed By: #### B 12FOL, VITAD, IRON #### [facility] [address] [place] [address] Dr. Ekta Funk Creatinine [Mass/Vol] 1.99 mg/dL Critically high 0.55-1.02 [facility] Comment on above: Performed By: #### B 12FOL, VITAD, IRON #### [facility] [address] [place] [address] Dr. Ekta Funk EGFR-AF EGYPTIAN 30 mL/min/1.73m2 Critically low >=60 [facility] Comment on above: Performed By: #### B 12FOL, VITAD, IRON #### [facility] [address] [place] [address] Dr. Ekta Funk EGFR-NON AF EGYPTIAN 24 mL/min/1.73m2 Critically low >=60 [facility] Comment on above: Performed By: #### B 12FOL, VITAD, IRON #### [facility] [address] [place] [address] Dr. Ekta Funk Globulin (S) [Mass/Vol] 4.1 g/dL Normal [facility] Comment on above: Performed By: #### B 12FOL, VITAD, IRON #### [facility] [address] [place] [address] Dr. Ekta Funk Glucose [Mass/Vol] 115 mg/dL Critically high 74-106 [facility] Comment on above: Performed By: #### B 12FOL, VITAD, IRON #### [facility] [address] [place] [address] Dr. Ekta Funk Potassium [Moles/Vol] 5.2 mmol/L Critically high 3.5-5.1 [facility] Comment on above: Performed By: #### B 12FOL, VITAD, IRON #### [facility] [address] [place] [address] Dr. Ekta Funk Protein [Mass/Vol] 6.9 g/dL Normal 6.4-8.2 [facility] Comment on above: Performed By: #### B 12FOL, VITAD, IRON #### [facility] [address] [place] [address] Dr. Ekta Funk Sodium [Moles/Vol] 140 mmol/L Normal 136-145 [facility] Comment on above: Performed By: #### B 12FOL, VITAD, IRON #### [facility] [address] [place] [address] Dr. Ekta Funk Urea nitrogen [Mass/Vol] 45.0 mg/dL Critically high 7.0-18.0 [facility] Comment on above: Performed By: #### B 12FOL, VITAD, IRON #### [facility] [address] [place] [address] Dr. Ekta Funk Urea nitrogen/Creatinine [Mass ratio] 22.6 mg/mg Normal [facility] Comment on above: Performed By: #### B 12FOL, VITAD, IRON #### [facility] [address] [place] [address] Dr. Ekta Funk T4on 10-20-2022 T4 [Mass/Vol] 6.10 ug/dL Normal 4.80-13.90 [facility] Comment on above: Performed By: #### B 12FOL, VITAD, IRON #### [facility] [address] [place] [address] Dr. Ekta Funk TSHon 10-20-2022 TSH 1.336 uIU/mL Normal 0.358-3.740 [facility] Comment on above: Performed By: #### B 12FOL, VITAD, IRON #### [facility] [address] [place] [address] Dr. Ekta Funk UA RANDOM W/MICROSCOPICon BACTERIA TRACE Abnormal NONE SEEN [facility] Comment on above: Performed By: #### B 12FOL, VITAD, IRON #### [facility] [address] [place] [address] Dr. Ekta Funk Bilirubin Ql (U) Negative Normal NEGATIVE [facility] Comment on above: Performed By: #### B 12FOL, VITAD, IRON #### [facility] [address] [place] [address] Dr. Ekta Funk CAST NONE SEEN Normal NONE SEEN [facility] Comment on above: Performed By: #### B 12FOL, VITAD, IRON #### [facility] [address] [place] [address] Dr. Ekta Funk Clarity (U) CLEAR Normal CLEAR [facility] Comment on above: Performed By: #### B 12FOL, VITAD, IRON #### [facility] [address] [place] [address] Dr. Ekta Funk Color (U) LT. YELLOW Normal YELLOW [facility] Comment on above: Performed By: #### B 12FOL, VITAD, IRON #### [facility] [address] [place] [address] Dr. Ekta Funk Crystals LM Nom (Urine sed) NONE SEEN Normal NONE SEEN [facility] Comment on above: Performed By: #### B 12FOL, VITAD, IRON #### [facility] [address] [place] [address] Dr. Ekta Funk Epithelial cells LM Ql (Urine sed) RARE Normal NONE SEEN /RARE [facility] Comment on above: Performed By: #### B 12FOL, VITAD, IRON #### [facility] [address] [place] [address] Dr. Ekta Funk Glucose Ql (U) Negative Normal NEGATIVE [facility] Comment on above: Performed By: #### B 12FOL, VITAD, IRON #### [facility] [address] [place] [address] Dr. Ekta Funk Hemoglobin Ql (U) Negative Normal NEGATIVE [facility] Comment on above: Performed By: #### B 12FOL, VITAD, IRON #### [facility] [address] [place] [address] Dr. Ekta Funk Ketones Ql (U) Negative Normal NEGATIVE [facility] Comment on above: Performed By: #### B 12FOL, VITAD, IRON #### [facility] [address] [place] [address] Dr. Ekta Funk LEUKOCYTES Negative Normal NEGATIVE [facility] Comment on above: Performed By: #### B 12FOL, VITAD, IRON #### [facility] [address] [place] [address] Dr. Ekta Funk MUCOUS NONE SEEN Normal NONE SEEN [facility] Comment on above: Performed By: #### B 12FOL, VITAD, IRON #### [facility] [address] [address] [address] Ekta Funk Nitrite Ql (U) Negative Normal NEGATIVE [facility] Comment on above: Performed By: #### B 12FOL, VITAD, IRON #### [facility] [address] [address] [address] Ekta Funk pH (U) 6.0 [pH] Normal 5-9 [facility] Comment on above: Performed By: #### B 12FOL, VITAD, IRON #### [facility] [address] [address] [address] Ekta Funk RBC 0-2 Normal 0-2 [facility] Comment on above: Performed By: #### B 12FOL, VITAD, IRON #### [facility] [address] [place] [address] Dr. Ekta Funk SPEC GRAVITY <=1.005 Abnormal 1.005-<=1.025 [facility] Comment on above: Performed By: #### B 12FOL, VITAD, IRON #### [facility] [address] [place] [address] Dr. Ekta Funk UA PROTEIN Negative Normal NEGATIVE/ TRACE [facility] Comment on above: Performed By: #### B 12FOL, VITAD, IRON #### [facility] [address] [place] [address] Dr. Ekta Funk Urobilinogen Qn (U) 0.2 {Ivan'U}/dL Normal 0.2 - 1. 0 [facility] Comment on above: Performed By: #### B 12FOL, VITAD, IRON #### [facility] [address] [place] [address] Dr. Ekta Funk WBC NONE SEEN Normal NONE SEEN [facility] Comment on above: Performed By: #### B 12FOL, VITAD, IRON #### [facility] [address] [place] [address] Dr. Ekta Funk BNPon 10-19-2022 Natriuretic peptide B (Bld) [Mass/Vol] 1355.0 pg/mL Critically high <=900.0 [facility] Comment on above: Performed By: #### B 12FOL, VITAD, IRON #### [facility] [address] [place] [address] Dr. Ekta Funk INSULINon 10-19-2022 Insulin 12.4 uIU/mL Normal 2.6-24.9 [facility] Comment on above: Performed By: #### I NSULIN #### [facility] [address] [address] [address] Ekta Funk OCC BLD IMMUNO SCREENon OCCULT BLOOD Positive Abnormal NEGATIVE [facility] Comment on above: Performed By: #### B 12FOL, VITAD, IRON #### [facility] [address] [place] [address] Dr. Ekta Funk PROF CHEM 8 (BAS METB)on Anion gap [Moles/Vol] 15.8 mmol/L Normal [facility] Comment on above: Performed By: #### B 12FOL, VITAD, IRON #### [facility] [address] [place] [address] Dr. Ekta Funk Calcium [Mass/Vol] 8.8 mg/dL Normal 8.5-10.1 [facility] Comment on above: Performed By: #### B 12FOL, VITAD, IRON #### [facility] [address] [place] [address] Dr. Ekta Funk Chloride [Moles/Vol] 107 mmol/L Normal 98-107 [facility] Comment on above: Performed By: #### B 12FOL, VITAD, IRON #### [facility] [address] [place] [address] Dr. Ekta Funk CO2 [Moles/Vol] 21.5 mmol/L Normal 21.0-32.0 [facility] Comment on above: Performed By: #### B 12FOL, VITAD, IRON #### [facility] [address] [place] [address] Dr. Ekta Funk Creatinine [Mass/Vol] 1.62 mg/dL Critically high 0.55-1.02 [facility] Comment on above: Performed By: #### B 12FOL, VITAD, IRON #### [facility] [address] [address] [address] Ekta Funk EGFR-AF EGYPTIAN 38 mL/min/1.73m2 Critically low >=60 [facility] Comment on above: Performed By: #### B 12FOL, VITAD, IRON #### [facility] [address] [place] [address] Dr. Ekta Funk EGFR-NON AF EGYPTIAN 31 mL/min/1.73m2 Critically low >=60 [facility] Comment on above: Performed By: #### B 12FOL, VITAD, IRON #### [facility] [address] [place] [address] Dr. Ekta Funk Glucose [Mass/Vol] 134 mg/dL Critically high 74-106 [facility] Comment on above: Performed By: #### B 12FOL, VITAD, IRON #### [facility] [address] [place] [address] Dr. Ekta Funk Potassium [Moles/Vol] 5.3 mmol/L Critically high 3.5-5.1 [facility] Comment on above: Performed By: #### B 12FOL, VITAD, IRON #### [facility] [address] [place] [address] Dr. Ekta Funk Sodium [Moles/Vol] 139 mmol/L Normal 136-145 [facility] Comment on above: Performed By: #### B 12FOL, VITAD, IRON #### [facility] [address] [place] [address] Dr. Ekta Funk Urea nitrogen [Mass/Vol] 37.0 mg/dL Critically high 7.0-18.0 [facility] Comment on above: Performed By: #### B 12FOL, VITAD, IRON #### [facility] [address] [place] [address] Dr. Ekta Funk Urea nitrogen/Creatinine [Mass ratio] 22.8 mg/mg Normal [facility] Comment on above: Performed By: #### B 12FOL, VITAD, IRON #### [facility] [address] [place] [address] Dr. Ekta Funk TROPONIN, HIGH SENSITIVITYon 10-19-2022 HSTROP 53.2 pg/mL Critically high 4.0-51.3 [facility] Comment on above: Result Comment: CUT- OFF POINTS HAVE BEEN ESTABLISHED BASED ON THE FOURTH UNIVERSAL DEFINITIONS OF MYOCARDIAL INFARCTION. THE UPPER REFERENCE LIMIT (URL) OF TROPONIN, DEFINED THE 99TH PERCENTILE OF cTnI DISTRIBUTION IN A REFERENCE POPULATION, HAS BEEN CONFIRMED THE DECISION THRESHOLD FOR MA DIAGNOSIS. Performed By: #### B CAROLYN LAUGHLIN IRON #### [facility] [address] [place] [address] Dr. Ekta Funk BNPon 10-18-2022 Natriuretic peptide B (Bld) [Mass/Vol] 1386.0 pg/mL Critically high <=900.0 [facility] Comment on above: Performed By: #### C VDTBH #### [facility] [address] [place] [address] Dr. Ekta Funk CARDIAC BRITTANIE ADMITon 023 CK [Catalytic activity/Vol] 34 U/L Normal 26-192 [facility] Comment on above: Performed By: #### C VDTBH #### [facility] [address] [place] [address] Dr. Ekta Funk CK.MB [Mass/Vol] 1.43 ng/mL Normal <=3.60 [facility] Comment on above: Performed By: #### C VDTBH #### [facility] [address] [place] [address] Dr. Ekta Funk HSTROP 74.1 pg/mL Critically high 4.0-51.3 [facility] Comment on above: Result Comment: CUT- OFF POINTS HAVE BEEN ESTABLISHED BASED ON THE FOURTH UNIVERSAL DEFINITIONS OF MYOCARDIAL INFARCTION. THE UPPER REFERENCE LIMIT (URL) OF TROPONIN, DEFINED THE 99TH PERCENTILE OF cTnI DISTRIBUTION IN A REFERENCE POPULATION, HAS BEEN CONFIRMED THE DECISION THRESHOLD FOR [place] DIAGNOSIS. Performed By: #### C VDTBH #### [facility] [address] [place] [address] Dr. Ekta Funk EVELYN 52 ng/mL Normal 9-82 [facility] Comment on above: Performed By: #### C VDTBH #### [facility] [address] [place] [address] Dr. Ekta Funk CBC AUTO DIFFon 10-18-2022 BASO # 0.0 103/ul Normal 0.0-0.1 [facility] Comment on above: Performed By: #### C BC #### [facility] [address] [place] [address] Dr. Ekta Funk Basophils/100 WBC (Bld) 0.3 % Normal 0.2-2.0 [facility] Comment on above: Performed By: #### C BC #### [facility] [address] [place] [address] Dr. Ekta Funk EO # 0.1 103/ul Normal 0.0-0.7 [facility] Comment on above: Performed By: #### C BC #### [facility] [address] [place] [address] Dr. Ekta Funk Eosinophils/100 WBC (Bld) 0.9 % Normal 0.9-7.0 [facility] Comment on above: Performed By: #### C BC #### [facility] [address] [place] [address] Dr. Ekta Funk Erythrocyte distribution width (RBC) [Ratio] 13.2 % Normal 11.0-15.0 [facility] Comment on above: Performed By: #### C BC #### [facility] [address] [place] [address] Dr. Ekta Funk Hematocrit (Bld) [Volume fraction] 38.9 % Normal 36.0-48.0 [facility] Comment on above: Performed By: #### C BC #### [facility] [address] [place] [address] Dr. Ekta Funk Hemoglobin (Bld) [Mass/Vol] 12.4 g/dL Normal 12.0-16.0 [facility] Comment on above: Performed By: #### C BC #### [facility] [address] [place] [address] Dr. Ekta Funk IG # 0.08 10e3/ul Critically high 0.00-0.03 [facility] Comment on above: Performed By: #### C BC #### [facility] [address] [place] [address] Dr. Ekta Funk IG % 0.5 % Normal 0.0-0.5 [facility] Comment on above: Performed By: #### C BC #### [facility] [address] [address] [address] Ekta Funk LYMPH # 1.4 103/ul Normal 1.2-3.8 [facility] Comment on above: Performed By: #### C BC #### [facility] [address] [place] [address] Dr. Ekta Funk Lymphocytes/100 WBC (Bld) 9.6 % Critically low 20.5-60.0 [facility] Comment on above: Performed By: #### C BC #### [facility] [address] [place] [address] Dr. Ekta Funk MANUAL DIFF REQ NO Normal [facility] Comment on above: Performed By: #### C BC #### [facility] [address] [place] [address] Dr. Ekta Funk MCH (RBC) [Entitic mass] 32.3 pg Normal 26.7-34.0 [facility] Comment on above: Performed By: #### C BC #### [facility] [address] [place] [address] Dr. Ekta Funk MCHC (RBC) [Mass/Vol] 31.9 g/dL Normal 29.9-35.2 [facility] Comment on above: Performed By: #### C BC #### [facility] [address] [place] [address] Dr. Ekta Funk MCV (RBC) [Entitic vol] 101.3 fL Critically high 81.0-99.0 [facility] Comment on above: Performed By: #### C BC #### [facility] [address] [place] [address] Dr. Ekta Funk MONO # 0.9 103/ul Critically high 0.3-0.8 [facility] Comment on above: Performed By: #### C BC #### [facility] [address] [address] [address] Ekta Funk Monocytes/100 WBC (Bld) 6.3 % Normal 1.7-12.0 [facility] Comment on above: Performed By: #### C BC #### [facility] [address] [address] [address] Ekta Funk NEUT # 12.0 103/ul Critically high 1.4-6.5 [facility] Comment on above: Performed By: #### C BC #### [facility] [address] [place] [address] Dr. Ekta Funk Neutrophils/100 WBC (Bld) 82.4 % Critically high 43.0-75.0 [facility] Comment on above: Performed By: #### C BC #### [facility] [address] [place] [address] Dr. Ekta Funk Platelet mean volume (Bld) [Entitic vol] 9.7 fL Normal 9.5-13.5 [facility] Comment on above: Performed By: #### C BC #### [facility] [address] [place] [address] Dr. Ekta Funk PLT 176 103/ul Normal 150-450 [facility] Comment on above: Performed By: #### C BC #### [facility] [address] [place] [address] Dr. Ekta Funk RBC 3.84 106/ul Critically low 4.20-5.40 [facility] Comment on above: Performed By: #### C BC #### [facility] [address] [place] [address] Dr. Ekta Funk WBC 14.6 103/ul Critically high 4.0-11.0 [facility] Comment on above: Performed By: #### C BC #### [facility] [address] [place] [address] Dr. Ekta Funk FREE THYROXINE INDEX T7on FTI 2.34 Normal 1.30-4.50 [facility] Comment on above: Performed By: #### C VDTBH #### [facility] [address] [address] [address] Ekta Funk T3U 36.0 % Normal 30.0-39.0 [facility] Comment on above: Performed By: #### C VDTBH #### [facility] [address] [address] [address] Ekta Funk T4 [Mass/Vol] 6.50 ug/dL Normal 4.80-13.90 [facility] Comment on above: Performed By: #### C VDTBH #### [facility] [address] [address] [address] Ekta Funk GLYCOHEMOGLOBIN A1Con 2022 ADA RECOMMENDATION SEE BELOW Normal [facility] Comment on above: Result Comment: ADA RECOMMENDED LIMIT 4.0 - 6.0 ADA THERAPEUTIC TARGET < 7.0 ACTION SUGGESTED > 7.0 Performed By: #### B 12FOL, VITAD, IRON #### [facility] [address] [address] [address] Ekta Funk Glucose [Mass/Vol] 140 mg/dL Normal [facility] Comment on above: Performed By: #### B 12FOL, VITAD, IRON #### [facility] [address] [address] [address] Ekta Funk HbA1c (Bld) [Mass fraction] 6.5 % Critically high 4.5-6.2 [facility] Comment on above: Performed By: #### B 12FOL, VITAD, IRON #### [facility] Laboratory [address] [address] [address] Ekta Funk IRONon 10-18-2022 Iron [Mass/Vol] 62.0 ug/dL Normal 50.0-170.0 [facility] Comment on above: Performed By: #### B 12FOL, VITAD, IRON #### [facility] Laboratory [address] [place] [address] Dr. Ekta Funk LIPID PROFILEon 10-18-2022 CHOL-HDL RATIO NORM SEE BELOW Normal [facility] Comment on above: Result Comment: 3.3 - 4.4 LOW RISK 4.4 - 7.1 AVERAGE RISK 7.1 - 11.0 MODERATE RISK >11.0 HIGH RISK Performed By: #### C VDTBH #### [facility] Laboratory [address] [address] [address] Ekta Funk Cholesterol [Mass/Vol] 242 mg/dL Critically high <=200 [facility] Comment on above: Performed By: #### C VDTBH #### [facility] Laboratory [address] [address] [address] Ekta Funk Cholesterol in HDL [Mass/Vol] 74 mg/dL Critically high 40-60 [facility] Comment on above: Performed By: #### C VDTBH #### [facility] Laboratory [address] [address] [address] Ekta Funk Cholesterol in LDL [Mass/Vol] 139.4 mg/dL Normal [facility] Comment on above: Performed By: #### C VDTBH #### [facility] Laboratory [address] [address] [address] Ekta Funk Cholesterol.total/Chol esterol in HDL [Mass ratio] 3.3 {ratio} Normal [facility] Comment on above: Performed By: #### C VDTBH #### [facility] Laboratory [address] [address] [address] Ekta Funk HDL NORMAL > or = 60 mg/dl - LOW CARDIOVASCULAR RISK <40 mg/dl - HIGH CARDIOVASCULAR RISK Normal [facility] Comment on above: Performed By: #### C VDTBH #### [facility] Laboratory [address] [address] [address] Ekta Fukn LDL CALC NORMAL SEE BELOW Normal [facility] Comment on above: Result Comment: <100 mg/dl OPTIMAL 100 - 129 mg/dl NEAR OR ABOVE OPTIMAL 130 - 159 mg/dl BORDERLINE HIGH 160 - 189 mg/dl HIGH >190 mg/dl VERY HIGH Performed By: #### C VDTBH #### [facility] Laboratory [address] [address] [address] Ekta Funk Triglyceride [Mass/Vol] 143 mg/dL Normal <=150 [facility] Comment on above: Performed By: #### C VDTBH #### [facility] Laboratory [address] [address] [address] Ekta Funk VLDL CALC 28.6 mg/dL Normal [facility] Comment on above: Performed By: #### C VDTBH #### [facility] Laboratory [address] [place] [address] Dr. Ekta Funk PROF 14(COMP METB)on 023 Albumin [Mass/Vol] 2.8 g/dL Critically low 3.4-5.0 [facility] Comment on above: Performed By: #### C VDTBH #### [facility] Laboratory [address] [place] [address] Dr. Ekta Funk Albumin/Globulin [Mass ratio] 0.7 {ratio} Normal [facility] Comment on above: Performed By: #### C VDTBH #### [facility] Laboratory [address] [place] [address] Dr. Ekta Funk ALP [Catalytic activity/Vol] 90 U/L Normal 46-116 [facility] Comment on above: Performed By: #### C VDTBH #### [facility] Laboratory [address] [place] [address] Dr. Ekta Funk ALT [Catalytic activity/Vol] 26 U/L Normal 14-59 [facility] Comment on above: Performed By: #### C VDTBH #### [facility] Laboratory [address] [place] [address] Dr. Ekta Funk Anion gap [Moles/Vol] 14.5 mmol/L Normal [facility] Comment on above: Performed By: #### C VDTBH #### [facility] Laboratory [address] [place] [address] Dr. Ekta Funk AST [Catalytic activity/Vol] 14 U/L Critically low 15-37 [facility] Comment on above: Performed By: #### C VDTBH #### [facility] Laboratory [address] [place] [address] Dr. Ekta Funk Bilirubin [Mass/Vol] 0.4 mg/dL Normal 0.2-1.0 [facility] Comment on above: Performed By: #### C VDTBH #### [facility] Laboratory [address] [address] [address] Etka Funk Calcium [Mass/Vol] 8.9 mg/dL Normal 8.5-10.1 [facility] Comment on above: Performed By: #### C VDTBH #### [facility] Laboratory [address] [place] [address] Dr. Ekta Funk Chloride [Moles/Vol] 106 mmol/L Normal 98-107 [facility] Comment on above: Performed By: #### C VDTBH #### [facility] Laboratory [address] [place] [address] Dr. Ekta Funk CO2 [Moles/Vol] 23.5 mmol/L Normal 21.0-32.0 [facility] Comment on above: Performed By: #### C VDTBH #### [facility] Laboratory [address] [place] [address] Dr. Ekta Funk Creatinine [Mass/Vol] 1.70 mg/dL Critically high 0.55-1.02 [facility] Comment on above: Performed By: #### C VDTBH #### [facility] Laboratory [address] [place] [address] Dr. Ekta Funk EGFR-AF EGYPTIAN 36 mL/min/1.73m2 Critically low >=60 [facility] Comment on above: Performed By: #### C VDTBH #### [facility] Laboratory [address] [place] [address] Dr. Ekta Funk EGFR-NON AF EGYPTIAN 29 mL/min/1.73m2 Critically low >=60 [facility] Comment on above: Performed By: #### C VDTBH #### [facility] Laboratory [address] [place] [address] Dr. Ekta Funk Globulin (S) [Mass/Vol] 4.0 g/dL Normal [facility] Comment on above: Performed By: #### C VDTBH #### [facility] [address] [place] [address] Dr. Ekta Funk Glucose [Mass/Vol] 99 mg/dL Normal 74-106 [facility] Comment on above: Performed By: #### C VDTBH #### [facility] Laboratory [address] [place] [address] Dr. Ekta Funk Potassium [Moles/Vol] 5.0 mmol/L Normal 3.5-5.1 [facility] Comment on above: Performed By: #### C VDTBH #### [facility] Laboratory [address] [place] [address] Dr. Ekta Funk Protein [Mass/Vol] 6.8 g/dL Normal 6.4-8.2 [facility] Comment on above: Performed By: #### C VDTBH #### [facility] Laboratory [address] [place] [address] Dr. Ekta Funk Sodium [Moles/Vol] 139 mmol/L Normal 136-145 [facility] Comment on above: Performed By: #### C VDTBH #### [facility] Laboratory [address] [place] [address] Dr. Ekta Fnuk Urea nitrogen [Mass/Vol] 36.0 mg/dL Critically high 7.0-18.0 [facility] Comment on above: Performed By: #### C VDTBH #### [facility] Laboratory [address] [place] [address] Dr. Ekta Funk Urea nitrogen/Creatinine [Mass ratio] 21.2 mg/mg Normal [facility] Comment on above: Performed By: #### C VDTBH #### [facility] Laboratory [address] [place] [address] Dr. Ekta Funk TSHon 10-18-2022 TSH 0.910 uIU/mL Normal 0.358-3.740 [facility] Comment on above: Performed By: #### C VDTBH #### [facility] Laboratory [address] [place] [address] Dr. Ekta Funk Covid-19 PCR ([facility])on 09-10 SARS-CoV-2 (COVID-19) RNA GANESH+probe Ql (Unsp spec) Detected Abnormal NOT DETECTED [facility] Comment on above: Result Comment: This test is not yet approved or cleared by the [place] FDA. When there are no FDA-approved or cleared tests available, and other criteria are met, FDA can make tests available under an emergency access mechanism called an Emergency Use Authorization (EUA). The EUA for this test is supported by the [employer] of Health and Human Service's declaration that [...] used). Performed By: #### C MP #### [facility] Laboratory [address] [place] [address] Dr. Ekta Funk INFLUENZA A AND B AGon 09-25 [facility] SEE BELOW Normal [facility] Comment on above: Result Comment: Nega tive for Flu A protein angiten. Infection due to Flu A cannot be ruled out. Flu A angiten in the sample may be below the detection limit of the test. Performed By: #### B 12FOL, VITAD, IRON #### [facility] Laboratory [address] [place] [address] Dr. Ekta Funk [facility] SEE BELOW Normal [facility] Comment on above: Result Comment: Nega tive for Flu B protein antigen. Infection due to Flu B cannot be ruled out. Flu B antigen in the sample may be below the detection limit of the test. Performed By: #### B 12FOL, VITAD, IRON #### [facility] Laboratory [address] [place] [address] Dr. Ekta Funk INFLUENZA A AG Negative Normal NEGATIVE SEE COMMENT [facility] Comment on above: Performed By: #### B 12FOL, VITAD, IRON #### [facility] Laboratory [address] [place] [address] Dr. Ekta Funk INFLUENZA B AG Negative Normal NEGATIVE SEE COMMENT [facility] Comment on above: Performed By: #### B 12FOL, VITAD, IRON #### [facility] Laboratory [address] [place] [address] Dr. Ekta Funk US CAROTID ART BILon [...] GODWIN BECK Date: 2022-05-26 16:[address] [facility] MRI BRAIN WO CONon 2 [...] since prior study. Electronically authenticated by: DANIEL PINEDA Date: 2022-05-25 10:45 Normal [facility] ECHOCARDIO M/2D COMPLETEon 0 05-24-2022 ECHOCARDIO M/2D COMPLETE Patient: SHEILA MAC Exam Date: 05/24/2022 : 1950 Gender:F Ordering : DR KRZYSZTOF THOMPSON . Admission #: [id number] Family : Order #: [id number] CLICK HERE TO VIEW EXAM ECHOCARDIOGRAM REPORT [...] Mckay M.D. on 05/24/2022 at 14:[address] [facility] BASIC METABOLIC PANELon 11-08 Calcium mass conc 9.4 mg/dL Normal 8.6-10.3 [facility] Comment on above: Order Comment: No: D o not add to previous draw Performed By: #### 0 0071 #### [facility] [address] [facility] [place] [address], [facility] Chloride molar conc 108 mmol/L High 98-107 [facility] Comment on above: Order Comment: No: D o not add to previous draw Performed By: #### 0 0071 #### [facility] [address] [place] [address], [place] CO2 molar conc 22 mmol/L Normal 21-31 [facility] Comment on above: Order Comment: No: D o not add to previous draw Performed By: #### 0 0071 #### [facility] [address] [place] [address], [facility] Creatinine mass conc 1.18 mg/dL Normal 0.60-1.20 [facility] Comment on above: Order Comment: No: D o not add to previous draw Performed By: #### 0 0071 #### [facility] [address] [place] [address], [place] GFR/1.73 sq M predicted among blacks MDRD vol rate/area (S/P/Bld) 55 ml/min/1.73sq m Abnormal >60 [facility] Comment on above: Order Comment: No: D o not add to previous draw Performed By: #### 0 0071 #### [facility] [address] [place] [address], [place] GFR/1.73 sq M predicted among non-blacks MDRD vol rate/area (S/P/Bld) 45 ml/min/1.73sq m Abnormal >60 [facility] Comment on above: Order Comment: No: D o not add to previous draw Performed By: #### 0 0071 #### [facility] [address] [place] [address], [facility] Glucose mass conc 166 mg/dL High 70-100 [facility] Comment on above: Order Comment: No: D o not add to previous draw Performed By: #### 0 0071 #### [facility] [address] [place] [address], [place] Potassium molar conc 4.1 mmol/L Normal 3.5-5.1 The [facility] Comment on above: Order Comment: No: D o not add to previous draw Performed By: #### 0 0071 #### [facility] [address] [place] [address], [place] Sodium molar conc 140 mmol/L Normal 136-145 [facility] Comment on above: Order Comment: No: D o not add to previous draw Performed By: #### 0 0071 #### [facility] [address] [place] [address], [place] Urea nitrogen mass conc 21 mg/dL Normal 7-25 [facility] Comment on above: Order Comment: No: D o not add to previous draw Performed By: #### 0 0071 #### [facility] [address] [place] [address], [facility] CBC COMPLETE BLOOD COUNTon 0 11-20-2018 Erythrocyte distribution width Ratio (RBC) 12.9 % Normal 11.5-15.0 The [facility] Comment on above: Order Comment: No: D o not add to previous draw Performed By: #### 5 [id number] #### [facility] [address] [place] [address], [facility] Hematocrit Volume Fraction (Bld) 36.7 % Normal 36.0-45.0 The [facility] Comment on above: Order Comment: No: D o not add to previous draw Performed By: #### 5 [id number] #### [facility] [address] [place] [address], [facility] Hemoglobin mass conc (Bld) 12.4 g/dL Normal 12.0-15.0 The [facility] Comment on above: Order Comment: No: D o not add to previous draw Performed By: #### 5 [id number] #### [facility] [address] [place] [address], [facility] MCH Entitic mass (RBC) 31.2 pg Normal 27.0-33.0 Th e [facility] Comment on above: Order Comment: No: D o not add to previous draw Performed By: #### 5 [id number] #### [facility] [address] [place] [address], [facility] MCHC mass conc (RBC) 33.8 g/dL Normal 32.0-35.0 The [facility] Comment on above: Order Comment: No: D o not add to previous draw Performed By: #### 5 [id number] #### [facility] [address] [place] [address], [facility] MCV Entitic volume (RBC) 92.4 fL Normal 82.0-98.0 The [facility] Comment on above: Order Comment: No: D o not add to previous draw Performed By: #### 5 [id number] #### [facility] [address] [facility]. [address] Nucleated RBC/100 WBC Ratio (Bld) 0 % Normal 0-0 The [facility] Comment on above: Order Comment: No: D o not add to previous draw Performed By: #### 5 [id number] #### [facility] [address] [facility] [place] [address], [facility] PLAT CNT 227 10*3/uL Normal 150-400 [facility] Comment on above: Order Comment: No: D o not add to previous draw Performed By: #### 5 [id number] #### [facility] [address] [facility]. [address] RBC #/vol (Bld) 3.97 10*6/uL Normal 3.80-5.00 The [facility] Comment on above: Order Comment: No: D o not add to previous draw Performed By: #### 5 [id number] #### [facility] [address] [facility] [place] [address], [facility] WBC #/vol (Bld) 5.55 10*3/uL Normal 4.00-10.60 [facility] Comment on above: Order Comment: No: D o not add to previous draw Performed By: #### 5 [id number] #### [facility] [address] [facility]. [address] Cardiovascular Lab Reporton 11-20-2018 Cardiovascular Lab Report [facility] Patient Name: [facility] Rahel Sosa MR #: [id number] Department of Physician: Bong Gaspar M.D. Division of Service Date: 11/20/2018 Cardiology Birthdate: 1950 Adult Cardiovascular Room #: 3AB [id number] [facility] [address] [address] Cardiovascular Laboratory Report INDICATION: The patient is a 68-year-old woman who was evaluated in Cardiology Clinic because of new onset symptoms of shortness of breath on mild exertion. Her stress test showed evidence of wyayc-ib-gkflzcgy area of inferoapical ischemia; because of that, [...] was performed followed by upsizing to a 6-Colombian x 11 cm sheath. Access was also obtained using the same technique in the right common femoral vein and a 6-Colombian x 11 cm sheath was placed. A 6-Colombian Michel catheter was used for right heart catheterization with measurement of pressures and calculation of cardiac output using the estimated Ivory method. Michel catheter was removed. Bilateral selective coronary angiography was then performed using 6-Colombian JL4 and JR4 diagnostic catheters. Catheters were [...] Gaspar M.D. Date Trans: 11/20/2018 09:31 A/alvina [id number] cc: Krzysztof Thompson M.D. [address] [facility] [address] Normal The [facility] BASIC METABOLIC PANELon 11-08 Calcium mass conc 9.5 mg/dL Normal 8.6-10.3 The [facility] Comment on above: Order Comment: No: D o not add to previous draw Performed By: #### 0 0071 #### [facility] [address] [place] [address], [facility] Chloride molar conc 105 mmol/L Normal 98-107 [facility] Comment on above: Order Comment: No: D o not add to previous draw Performed By: #### 0 0071 #### [facility] [address] [place] [address], [facility] CO2 molar conc 24 mmol/L Normal 21-31 [facility] Comment on above: Order Comment: No: D o not add to previous draw Performed By: #### 0 0071 #### [facility] [address] [place] [address], [facility] Creatinine mass conc 1.42 mg/dL High 0.60-1.20 The [facility] Comment on above: Order Comment: No: D o not add to previous draw Performed By: #### 0 0071 #### [facility] [address] [place] [address], [place] GFR/1.73 sq M predicted among blacks MDRD vol rate/area (S/P/Bld) 45 ml/min/1.73sq m Abnormal >60 The [facility] Comment on above: Order Comment: No: D o not add to previous draw Performed By: #### 0 0071 #### [facility] [address] [place] [address], [place] GFR/1.73 sq M predicted among non-blacks MDRD vol rate/area (S/P/Bld) 36 ml/min/1.73sq m Abnormal >60 The [facility] Comment on above: Order Comment: No: D o not add to previous draw Performed By: #### 0 0071 #### [facility] [address] [place] [address], [facility] Glucose mass conc 86 mg/dL Normal 70-100 The [facility] Comment on above: Order Comment: No: D o not add to previous draw Performed By: #### 0 0071 #### [facility] [address] [place] [address], [facility] Potassium molar conc 4.2 mmol/L Normal 3.5-5.1 [facility] Comment on above: Order Comment: No: D o not add to previous draw Performed By: #### 0 0071 #### [facility] [address] [place] [address], [facility] Sodium molar conc 138 mmol/L Normal 136-145 The [facility] Comment on above: Order Comment: No: D o not add to previous draw Performed By: #### 0 0071 #### [facility] [address] [place] [address], [facility] Urea nitrogen mass conc 19 mg/dL Normal 7-25 The [facility] Comment on above: Order Comment: No: D o not add to previous draw Performed By: #### 0 0071 #### [facility] [address] CBC COMPLETE BLOOD COUNTon 0 - Erythrocyte distribution width Ratio (RBC) 13.0 % Normal 11.5-15.0 The [facility] Comment on above: Order Comment: No: D o not add to previous draw Performed By: #### 5 [id number] #### [facility] [address] [facility] Hematocrit Volume Fraction (Bld) 38.3 % Normal 36.0-45.0 The [facility] Comment on above: Order Comment: No: D o not add to previous draw Performed By: #### 5 [id number] #### [facility] [address] Hemoglobin mass conc (Bld) 12.6 g/dL Normal 12.0-15.0 The [facility] Comment on above: Order Comment: No: D o not add to previous draw Performed By: #### 5 [id number] #### [facility] [address] [facility] [place] [address], [facility] Entitic mass (RBC) 31.1 pg Normal 27.0-33.0 Th e [facility] Comment on above: Order Comment: No: D o not add to previous draw Performed By: #### 5 [id number] #### [facility] [address] [facility] [place] [address], [facility] MCHC mass conc (RBC) 32.9 g/dL Normal 32.0-35.0 The [facility] Comment on above: Order Comment: No: D o not add to previous draw Performed By: #### 5 [id number] #### [facility] [address] [facility] [place] [address], [facility] MCV Entitic volume (RBC) 94.6 fL Normal 82.0-98.0 The [facility] Comment on above: Order Comment: No: D o not add to previous draw Performed By: #### 5 [id number] #### [facility] [address] Nucleated RBC/100 WBC Ratio (Bld) 0 % Normal 0-0 The [facility] Comment on above: Order Comment: No: D o not add to previous draw Performed By: #### 5 [id number] #### [facility] [address] [place] [address], [facility] PLAT CNT 266 10*3/uL Normal 150-400 The [facility] Comment on above: Order Comment: No: D o not add to previous draw Performed By: #### 5 [id number] #### [facility] [address] RBC #/vol (Bld) 4.05 10*6/uL Normal 3.80-5.00 The [facility] Comment on above: Order Comment: No: D o not add to previous draw Performed By: #### 5 [id number] #### [facility] [address] [facility]. [address] WBC #/vol (Bld) 9.01 10*3/uL Normal 4.00-10.60 The [facility] Comment on above: Order Comment: No: D o not add to previous draw Performed By: #### 5 [id number] #### [facility] [address] PROTHROMBIN TIMEon 9 INR Coag RelTime (PPP) 1.07 {INR} Normal 0.91-1.16 Th e [facility] Comment on above: Order Comment: [...] 1995;[id number]. Performed By: #### 5 [id number] #### [facility] [address] Prothrombin time (PT) Coag time (PPP) 13.9 s Normal 12.3-14.8 The [facility] Comment on above: Order Comment: No: D o not add to previous draw Result Comment: ALL RESULTS MUST BE INTERPRETED WITH RESPECT TO BLOOD DRAWING ARTIFACT OR DILUTION ERROR OF ANTICOAGULANT AT THE TIME OF SAMPLING. Performed By: #### 5 [id number] #### [facility] [address] Vital Signs Date Time Vital Sign Value Performing Clinician Joel mcclellan 03-26-2025 14:35-0400 Body height 157.48 cm Krzysztof Thompson MD Work Phone: [facility] 03-26-2025 14:35-0400 Body mass index (BMI) [Ratio] 21.7 kg/m2 Krzysztof Thompson MD Work Phone: [facility] 03-26-2025 14:35-0400 Body weight 53.97 kg Krzysztof Thompson MD Work Phone: [facility] 02-19-2025 14:50-0400 Body weight 56.2 kg Krzysztof Thompson MD Work Phone: [facility] 12-25-2024 10:07-0400 Body height 162.6 cm Kaitlin WILLETT Work Phone: [facility] 04-17-2025 10:07-0400 Body mass index (BMI) [Ratio] 21.7 kg/m2 Kaitlin Macdonald [employer] INSPECT[employer] Work Phone: [facility] 12-25-2024 10:07-0400 Body weight 57.34 kg Kaitlin Macdonald [employer] PIPING INSPECTOR[employer] WORKER Work Phone: [facility] 12-25-2024 10:07-0400 Diastolic blood pressure 99 mm[Hg] Kaitlin Macdonald [employer]SE PIPING INSPECTOR[employer] S[employer] WORKER Work Phone: [facility] 12-25-2024 10:07-0400 Heart rate 89 /min Kaitlin Macdonald HOUSE PIPING INSPECTOR-NEON SIGN WORKER Work Phone: [facility] 12-25-2024 10:07-0400 Systolic blood pressure 157 mm[Hg] Kaitlin Macdonald HOUSE PIPING INSPECTOR-NEON SIGN WORKER Work Phone: [facility] 08-11-2024 14:21-0500 Body mass index (BMI) [Ratio] 23.52 kg/m2 Christopher Shama DO Work Phone: [facility] 08-11-2024 14:21-0500 Body weight 60.24 kg Christopher Shama DO Work Phone: [facility] 08-11-2024 14:21-0500 Diastolic blood pressure 82 mm[Hg] Christopher Shama DO Work Phone: [facility] 08-11-2024 14:21-0500 Heart rate 79 /min Christopher Shama DO Work Phone: [facility] 08-11-2024 14:21-0500 SaO2% (BldA) [Mass fraction] 97 % Christopher Shama DO Work Phone: [facility] 08-11-2024 14:21-0500 Systolic blood pressure 130 mm[Hg] Christopher Shama DO Work Phone: [facility] 07-22-2024 11:45-0500 Body height 162.6 cm Pmh 1 [facility] 07-22-2024 11:45-0500 Body mass index (BMI) [Ratio] 22.31 kg/m2 Pmh 1 [facility] 07-22-2024 11:45-0500 Body weight 58.97 kg Pmh 1 [facility] 07-16-2024 11:25-0500 Body height 162.6 cm Kaitlin Macdonald HOUSE PIPING INSPECTOR-NEON SIGN WORKER Work Phone: [facility] 07-16-2024 11:25-0500 Body mass index (BMI) [Ratio] 22.49 kg/m2 Kaitlin Macdonald HOUSE PIPING INSPECTOR-NEON SIGN WORKER Work Phone: [facility] 07-16-2024 11:25-0500 Body weight 59.42 kg Kaitlin Macdonald HOUSE PIPING INSPECTOR-NEON SIGN WORKER Work Phone: [facility] 07-14-2024 13:28-0500 Body mass index (BMI) [Ratio] 23.52 kg/m2 Christopher Shama DO Work Phone: [facility] 07-14-2024 13:28-0500 Body weight 60.24 kg Christopher Shama DO Work Phone: [facility] 07-14-2024 13:28-0500 Diastolic blood pressure 101 mm[Hg] Christopher Shama DO Work Phone: [facility] 07-14-2024 13:28-0500 Heart rate 87 /min Christopher Shama DO Work Phone: [facility] 07-14-2024 13:28-0500 SaO2% (BldA) [Mass fraction] 91 % Christopher Shama DO Work Phone: [facility] 07-14-2024 13:28-0500 Systolic blood pressure 155 mm[Hg] Christopher Shama DO Work Phone: [facility] 03-26-2024 11:35-0400 Diastolic blood pressure 106 mm[Hg] MD Krzysztof Thompson Work Phone: [facility] 03-26-2024 11:35-0400 Heart rate 76 /min MD Krzysztof Thompson Work Phone: [facility] 03-26-2024 11:35-0400 Respiratory rate 18 /min MD Krzysztof Thompson Work Phone: [facility] 03-26-2024 11:35-0400 SaO2% (BldA) [Mass fraction] 96 % MD Krzysztof Thompson Work Phone: [facility] 03-26-2024 11:35-0400 Systolic blood pressure 152 mm[Hg] MD Krzysztof Thompson Work Phone: [facility] 03-26-2024 10:24-0400 Body height 157.48 cm MD Krzysztof Thompson Work Phone: [facility] 03-26-2024 10:24-0400 Body weight 62.14 kg MD Krzysztof Thompson Work Phone: [facility] 02-19-2024 09:07-0400 Body height 157.48 cm MD Krzyszotf Thompson Work Phone: [facility] 02-19-2024 09:07-0400 Body mass index (BMI) [Ratio] 24.7 kg/m2 MD Krzysztof Thompson Work Phone: [facility] 02-19-2024 09:07-0400 Body weight 61.23 kg MD Krzysztof Thompson Work Phone: [facility] 02-19-2024 09:07-0400 Diastolic blood pressure 105 mm[Hg] MD Krzysztof Thompson Work Phone: [facility] 02-19-2024 09:07-0400 Heart rate 60 /min MD Krzysztof Thompson Work Phone: [facility] 02-19-2024 09:07-0400 Systolic blood pressure 146 mm[Hg] MD Krzysztof Thompson Work Phone: [facility] 02-05-2024 13:37-0400 Diastolic blood pressure 47 mm[Hg] MD Krzysztof Thompson Work Phone: [facility] 02-05-2024 13:37-0400 Heart rate 78 /min MD Krzysztof Thompson Work Phone: [facility] 02-05-2024 13:37-0400 Respiratory rate 16 /min MD Krzysztof Thompson Work Phone: [facility] 02-05-2024 13:37-0400 SaO2% (BldA) [Mass fraction] 97 % MD Krzysztof Thompson Work Phone: [facility] 02-05-2024 13:37-0400 Systolic blood pressure 122 mm[Hg] MD Krzysztof Thompson Work Phone: [facility] 02-05-2024 11:35-0400 Body height 157.48 cm MD Krzysztof Thompson Work Phone: [facility] 02-05-2024 11:35-0400 Body temperature 99.1 [degF] MD Krzysztof Thompson Work Phone: [facility] 02-05-2024 11:35-0400 Body weight 62.14 kg MD Krzysztof Thompson Work Phone: [facility] Encounters Encounter Date Encounter Type Care Provider Facility Start: 05-04-2025 End: 05-04-2025 ambulatory Krzysztof Thompson MD Work Phone: [facility] Work Phone: Start: 05-04-2025 End: 05-04-2025 Patient encounter procedure Rickie Johnson MD -[facility] Work Phone: Start: 04-27-2025 End: 04-27-2025 ambulatory Krzysztof Thompson MD Work Phone: [facility] Work Phone: Start: 04-27-2025 End: 04-27-2025 Patient encounter procedure Rickie Alvares MD -[facility] Work Phone: Start: 04-02-2025 End: 04-02-2025 ambulatory Krzysztof Thompson MD Work Phone: [facility] Work Phone: Start: 04-02-2025 End: 04-02-2025 Patient encounter procedure Rickie Johnson MD -[facility] Work Phone: Start: 03-31-2025 ambulatory Yael Atwood MD Welia Healthty:[facility] Start: 03-26-2025 End: 03-26-2025 ambulatory Krzysztof Thompson MD Work Phone: [facility] Work Phone: Start: 03-26-2025 End: 03-26-2025 Patient encounter procedure Vasyl Chicas MD -[facility] Work Phone: Start: 03-11-2025 End: 03-11-2025 ambulatory Krzysztof Thompson MD Work Phone: [facility] Work Phone: Start: 03-11-2025 End: 03-11-2025 Patient encounter procedure Rickie Johnson MD -[facility] Work Phone: Start: 02-26-2025 End: 02-26-2025 Patient encounter procedure Vasyl Chicas MD -[facility] Work Phone: Start: 02-26-2025 End: 02-26-2025 ambulatory Krzysztof Thompson Facility:[facility] Start: 02-19-2025 End: 02-19-2025 Patient encounter procedure Vasyl Chicas MD -[facility] Work Phone: Start: 12-25-2024 End: 12-25-2024 Office outpatient visit 15 minutes Kaitlin Macdonald HOUSE PIPING INSPECTOR-NEON SIGN WORKER Work Phone: [facility] Comment on above: Bright red blood per rectum (Primary Dx) Start: 12-25-2024 End: 12-25-2024 Orders Only Not In System Ref Prov [facility] Start: 08-11-2024 End: 08-11-2024 ambulatory RAVEN SESAY Not Available Start: 08-11-2024 End: 08-11-2024 Office outpatient visit 25 minutes Raven Sesay DO Work Phone: [employer] [address] Comment on above: Left hand pain (Prim pérez Dx); Primary osteoarthritis of hand, unspecified laterality Start: 08-04-2024 End: 08-04-2024 Telephone encounter Angelica Dawson CMA [facility] Start: 07-28-2024 End: 07-28-2024 Evaluation and management of inpatient NIDIA WHITE [facility] Start: 07-22-2024 End: 07-22-2024 ambulatory [facility] Pat Phone Call Provider 1 [facility] - Pre Admit Start: 07-22-2024 End: 07-22-2024 ambulatory KRZYSZTOF THOMPSON [facility] Start: 07-17-2024 End: 07-17-2024 Bamboo flowsheet Raven Sesay DO Work Phone: [facility] [employer] [facility] Start: 07-17-2024 End: 07-17-2024 Bamboo flowsheet Raven Sesay DO Work Phone: [employer] [address] Start: 07-17-2024 End: 07-17-2024 Patient encounter procedure Raven Sesay DO Work Phone: [employer] [facility] Comment on above: Cervical radiculopat hy (Primary Dx); Paresthesia Start: 07-17-2024 End: 07-17-2024 ambulatory RAVEN SESAY Not Available Start: 07-16-2024 End: 07-16-2024 Office outpatient new 30 minutes Kaitlin Macdonald HOUSE PIPING INSPECTOR-NEON SIGN WORKER Work Phone: [facility] Comment on above: Vomiting in adult (P rimary Dx); History of gastric ulcer; Chronic GERD; Hiatal hernia; Dysphagia, unspecified type Start: 07-16-2024 End: 07-16-2024 ambulatory KAITLIN MACDONALD [facility] Start: 07-15-2024 End: 07-15-2024 ambulatory CLEVE SHETH Not Available Start: 07-15-2024 End: 07-15-2024 Office outpatient visit 10 minutes Cleve Sheth DO Work Phone: [facility] Comment on above: Chronic right hip pa in (Primary Dx); Sacral insufficiency fracture with routine healing, subsequent encounter; Closed fracture of multiple pubic rami, right, initial encounter (CMS/[facility]) Start: 07-14-2024 End: 07-14-2024 Bamboo flowsheet Christopher Shama DO Work Phone: [facility] [employer] [address] Start: 07-14-2024 End: 07-14-2024 Bamboo flowsheet Christopher Shama DO Work Phone: [facility] [employer] [address] Start: 07-14-2024 End: 07-14-2024 Office outpatient new 30 minutes Christopher Shama DO Work Phone: [facility] [employer] [address] Comment on above: Paresthesia (Primary Dx) Start: 07-14-2024 End: 07-14-2024 ambulatory RAVEN SESAY Not Available Start: 06-17-2024 End: 06-17-2024 Bamboo flowsheet Cleve Sheth DO Work Phone: [facility] Start: 06-17-2024 End: 06-17-2024 Bamboo flowsheet Cleve Sheth DO Work Phone: [facility] Start: 06-17-2024 End: 06-17-2024 Office outpatient visit 25 minutes Cleve Sheth DO Work Phone: [facility] Comment on above: Chronic right hip pa in (Primary Dx); Sacral insufficiency fracture, initial encounter ([facility]); Closed fracture of multiple pubic rami, right, initial encounter ([facility]) Start: 06-17-2024 End: 06-17-2024 ambulatory CLEVE SHETH Not Available Start: 06-13-2024 End: 06-13-2024 Emergency department patient visit [facility] Start: 06-12-2024 End: 06-12-2024 ambulatory CLEVE SHETH Not Available Start: 06-05-2024 End: 06-18-2024 Telephone encounter Miranda Case PT [facility] Comment on above: PT Initial Eval (Con tacted and offered to schedule PT eval per Dr. Thompson. She said she'd like to wait till [...] Start: 03-26-2024 Non-patient / Non-visit MD Carrie Thompson Work Phone: [facility] G[facility] Work Phone: Start: 03-26-2024 End: 03-26-2024 Admission to same day surgery center MD Krzysztof Thompson Work Phone: [facility] Work Phone: Start: 03-26-2024 End: 03-26-2024 ambulatory MD Krzysztof Thompson Work Phone: [facility] Work Phone: Start: 02-19-2024 End: 02-19-2024 ambulatory MD Krzysztof Thompson Work Phone: [facility] Work Phone: Start: 02-19-2024 End: 02-19-2024 Patient encounter procedure MD Krzysztof Thompson Work Phone: [facility] Work Phone: Start: 02-05-2024 Non-patient / Non-visit MD Carrie Thompson Work Phone: [facility] Work Phone: Start: 02-05-2024 End: 02-05-2024 Admission to same day surgery center MD Krzysztof Thompson Work Phone: [facility] Work Phone: Start: 02-05-2024 End: 02-05-2024 ambulatory MD Krzysztof Thompson Work Phone: [facility] Work Phone: Start: 01-16-2024 Non-patient / Non-visit MD Carrie Thompson Work Phone: [facility] Work Phone: Start: 01-09-2024 End: 01-09-2024 ambulatory DARSHAN HERNANDEZ Not Available Start: 01-07-2024 ambulatory KRZYSZTOFVANI THOMPSON [facility] Start: 01-16-2023 ambulatory JN GARCIA . Facility :[facility] Start: 01-15-2023 End: 01-15-2023 ambulatory APRIL CASTANEDA . Facility:[facility] Start: 01-10-2023 End: 01-11-[address] KRZYSZTOF THOMPSON . Facility:[facility] Start: 12-15-2022 End: 12-15-2022 ambulatory APRIL CASTANEDA . Facility:[facility] Start: 12-15-2022 [facility] Start: 12-05-2022 End: 12-06-[address] KRZYSZTOF THOMPSON . Facility:[facility] Start: 11-25-2022 End: 11-27-2022 Evaluation and management of inpatient DR KRZYSZTOF THOMPSON . Facility:[facility] Start: 11-13-2022 End: 11-14-[address] KRZYSZTOF THOMPSON . Facility:[facility] Start: 11-09-2022 End: 11-10-[address] KRZYSZTOF THOMPSON . Facility:[facility] Start: 10-20-2022 End: 10-23-[address] KRZYSZTOF THOMPSON . Facility:[facility] Start: 10-19-2022 End: 10-20-[address] KRZYSZTOF THOMPSON . Facility:[facility] Start: 10-18-2022 End: 10-19-[address] KRZYSZTOF THOMPSON . Facility:[facility] Start: 09-25-2022 End: 09-25-[address] KRZYSZTOF THOMPSON . Facility:[facility] Start: 07-25-2022 End: 07-26-[address] KRZYSZTOF THOMPSON . Facility:[facility] Start: 05-26-2022 End: 05-27-[address] KRZYSZTOF THOMPSON . Facility:[facility] Start: 05-25-2022 End: 05-26-[address] KRZYSZTOF THOMPSON . Facility:[facility] Start: 05-24-2022 End: 05-25-[address] KRZYSZTOF THOMPSON . Facility:[facility] Start: 05-11-2022 End: 05-12-[address] RKZYSZTOF THOMPSON . Facility:[facility] Start: 02-14-2022 End: 02-15-[address] KRZYSZTOF THOMPSON . Facility: Start: 11-19-2018 End: 11-20-2018 Patient encounter procedure PROVIDER UNKNOWN Facility:[facility] Start: 11-13-2018 End: 11-14-2018 Patient encounter procedure DEFAULT PHYSICIAN Facility:[facility] Start: 10-31-2018 End: 11-01-2018 Patient encounter procedure DEFAULT PHYSICIAN Facility:[facility] Start: 09-23-2018 End: 09-24-2018 Patient encounter procedure DEFAULT PHYSICIAN Facility:[facility] Start: 09-05-2018 End: 09-06-2018 Patient encounter procedure DEFAULT PHYSICIAN Facility:[facility] Procedures Date Procedure Procedure Detail Performing Clinician Start: 04-02-2025 Plain X-ray of right shoulder Krzysztof oconnor MD Work Phone: Start: 03-11-2025 X-ray of thoracic spine, two views Eben Thompson MD Work Phone: Start: 02-26-2025 X-ray of lumbar spine, six views including bending views Krzysztof Thompson MD Work Phone: Start: 02-26-2025 X-ray of cervical spine Krzysztof Thompson MD Work Phone: Start: 02-26-2025 Dual energy X-ray absorptiometry Krzysztof Thompson MD Work Phone: Start: 07-17-2024 End: 07-17-2024 Needle emg ea extremty w/paraspinl area complete Raven Sesay DO Work Phone: Start: 06-05-2024 Radex hip unilateral with pelvis 2-3 views Cleve Sheth DO Work Phone: Start: 03-26-2024 Colonoscopy Not In System Ref Prov Start: 03-26-2024 Screening colonoscopy MD Krzysztof Thompson Work Phone: Start: 02-05-2024 Esophagogastroduodenoscopy MD Krzysztof oconnor Work Phone: Plan of Treatment Date Care Activity Detail Author Start: 12-31-2025 Tobacco Screening Tobacco Screening [facility] Start: 12-25-2025 Tobacco Screening Tobacco Screening [facility] Start: 07-28-2025 Tobacco Screening Tobacco Screening [facility] Start: 07-22-2025 Tobacco Screening Tobacco Screening [facility] Start: 07-16-2025 Tobacco Screening Tobacco Screening [facility] Start: 05-11-2025 Influenza vaccination Influenza Vaccine [facility] Start: 03-26-2025 Patient referral [facility] Work Phone: Start: 03-11-2025 X-ray of thoracic spine, two views XR thoracic spine 2V [facility] Start: 03-11-2025 XR Thoracic spine 2 Views [facility] Start: 02-19-2025 Patient referral [facility] Work Phone: Start: 08-11-2024 End: 08-11-2024 Patient encounter procedure 08/11/2024 2:15 PM EST Off ice Visit [facility] [address] [place] [id number] Raven Sesay DO [address] [place] [address] [facility] [address] Start: 07-28-2024 End: 07-28-2024 Admission to same day surgery center 07/28/2024 9:15 AM EST - 07/28/2024 9:45 AM EST Surgery [facility] - Surgery [address] [place] [id number] Nidia White MD [address] [place] [id number] ESOPHAGOGASTRODUODENOSCOPY DIAGNOSTIC [91563 (CPT )] [facility] Comment on above: ESOPHAGOGASTRODUODENOSCOPY DIAGNOSTIC [4 3235 (CPT )] Start: 07-28-2024 End: 07-28-2024 Esophagogastroduodenoscopy transoral diagnostic ESOPHAGOGASTRODUODENOSCOPY DIAGNOSTIC vomiting, gastroesophageal reflux, dysphagia 07/28/2024 9:15 AM EST [facility] Start: 07-28-2024 Subsequent hospital visit by physician 07/28/2024 9:15 AM EST Hospital Encounter [facility] - Surgery [address] [place] [id number] Nidia White MD [address] [facility] [place] [phone] [facility] Surgery Start: 07-22-2024 End: 07-22-2024 ambulatory 07/22/2024 3:10 PM EST Support Visit [facility] - Pre Admit [address] [place] [phone] [facility] - Pre Admit Start: 07-17-2024 End: 07-17-2024 Patient encounter procedure [facility] [address] Comment on above: Arrived Start: 07-15-2024 End: 07-15-2024 Patient encounter procedure [facility] Start: 07-14-2024 End: 07-14-2025 EMG 1 [facility] EMG 1 [facility] Routine Paresthesia Expected: 07/14/2024, Expires: 07/14/2025 [facility] Work Phone: Comment on above: Expected: 07/14/2024, Expires: Start: 07-14-2024 End: 07-14-2024 [facility] [address] Comment on above: Brachial plexopathy; Ulnar neuropathy of left upper extremity Start: 06-17-2024 End: 06-17-2024 Patient encounter procedure 06/17/2024 1:30 PM EDT Off ice Visit [facility] [address] [place] [id number] Cleve Sheth DO [address] [facility] [address] [place] [address] Chronic right hip pain (Primary Dx); Sacral insufficiency fracture, initial encounter (CMS/HCC); Closed fracture of multiple pubic rami, right, initial encounter (CMS/HCC) [facility] Comment on above: Chronic right hip pain (Primary Dx); Sacral insufficiency fracture, initial encounter (CMS/HCC); Closed fracture of multiple pubic rami, right, initial encounter (CMS/HCC) Start: 06-16-2024 End: 06-16-2024 Patient encounter procedure 06/16/2024 12:30 PM EDT Office Visit [facility] [address] [place] [phone] Raven Sesay DO [address] [place] [address] [facility] [address] Start: 05-11-2024 COVID-19 Vaccine ( season) COVID-19 Vaccine ( season) [facility] Start: 05-11-2024 Influenza vaccination Influenza Vaccine (#1) [facility] Start: 03-26-2024 [facility] Start: 02-05-2024 [facility] Start: 07-26-2019 Administration of varicella zoster vaccine Zoster (Shingles) Vaccine (3 of 3) [facility] Start: 2013 Fall Risk Screening Fall Risk Screening [facility] Start: 1967 DTaP,Tdap and Td Vaccines (1 - Tdap) DTaP,Tdap and Td Vaccines (1 - Tdap) [facility] Start: 1960 Depression Screening Depression Screening [facility] End: 07-16-2025 Esophagogastroduodenoscopy EGD GI Routine Vomiting in adult Chronic GERD Dysphagia, unspecified type 1 Occurrences starting 07/16/2024 until 07/16/2025 [facility] Work Phone: Comment on above: 1 Occurrences starting 07/16/2024 until 07/16/2025 Patient Education [facility] Work Phone: Patient referral [facility] Work Phone: XR Shoulder - right Views [facility] Immunizations Immunization Date Immunization Notes Care Provider Kimberly muniz 06-19-2024 influenza virus vaccine, unspecified formulation Karstenzonia Connorett DO Work Phone: [facility] 06-05-2023 Influenza, Seasonal, Quadrivalent, Adjuvanted Cleve Sheth DO Work Phone: [facility] 06-05-2023 influenza virus vaccine, unspecified formulation Cleve Sheth DO Work Phone: [facility] 06-12-2022 influenza, high dose seasonal, preservative-free Cleve Davisonston DO Work Phone: [facility] 05-30-2022 Influenza, High-dose Seasonal, Quadrivalent, Preservative Free Cleve Davisonston DO Work Phone: [facility] 06-15-2021 Influenza, High-dose Seasonal, Quadrivalent, Preservative Free Cleve Davisonston DO Work Phone: [facility] 01-10-2021 SARS-CoV-2, Unspecified Amandoandrew Sheth DO Work Phone: [facility] 05-31-2019 zoster vaccine, unspecified formulation Kaitlin Macdonald HOUSE PIPING INSPECTOR-NEON SIGN WORKER Work Phone: [facility] 06-18-2018 influenza, high dose seasonal, preservative-free Cleve Sheth DO Work Phone: [facility] 05-22-2017 influenza, injectabl e, quadrivalent, preservative free Cleve Sheth DO Work Phone: [facility] 06-14-2016 influenza, high dose seasonal, preservative-free Cleve Sheth DO Work Phone: [facility] 06-03-2015 influenza, high dose seasonal, preservative-free Cleve Sheth DO Work Phone: [facility] 09-10-2014 pneumococcal conjuga te vaccine, 13 valent Cleve Sheth DO Work Phone: [facility] 06-10-2014 influenza, seasonal, injectable Cleve Sheth DO Work Phone: [facility] 08-11-2013 zoster vaccine, live Cleve ponce DO Work Phone: [facility] 07-14-2013 pneumococcal polysaccharide vaccine, 23 valent Cleve Sheth DO Work Phone: [facility] 06-30-2013 seasonal influenza, intradermal, preservative free Cleve Sheth DO Work Phone: [facility] Payers Date Payer Category Payer Self-pay 2021 Medicare [employer] MEDICARE ADVANTAGE [employer] MEDICARE ADVANTAGE [id number] 2021-Present [address] [place] [address] [id number] 2021 Medicare (Managed Care) [employer] ADVANTAGE Member Subscriber Plan / Payer (Effective 2021-Present) Name: Sheila Mac Relation to Subscriber: Self Name: Sheila Mac Payer ID: Not on file Group ID: [id number] Type: Not on file Address: [address] [id number] 2017 Medicare HMO [facility] MEDICARE [id number] 2015 Medicare [id number] 1959 Unknown [id number] 1948 Unknown [id number] 2.16840.1.233340.3.579. 2.647 1948 Unknown [id number] .840.1.488579.3.579. 2.647 1948 Unknown [id number] .840.1.680761.3.579. 2.647 1948 Unknown [id number] .16840.1.426793.3.579. 2.647 1948 Unknown [id number] 2.840.1.776619.3.579. 2.647 1948 Unknown [id number] 2.16840.1.891206.3.579. 2.593 1948 Unknown [id number] 2.16840.1.143538.3.579. 2.593 1948 Unknown [id number] 2.16.840.1.500052.3.579. 2.593 1948 Unknown [id number] 2.16.840.1.056260.3.579. 2.593 1948 Unknown [id number] 2.16.840.1.303149.3.579. 2.593 1948 Unknown [id number] 2.16.840.1.424049.3.579. 2.593 1948 Unknown [id number] 2.16.840.1.608912.3.579. 2.593 1948 Unknown [id number] 2.16.840.1.715293.3.579. 2.593 1948 Unknown [id number] 2.16.840.1.403300.3.579. 2.593 1948 Unknown [id number] 2.16840.1.676422.3.579. 2.59 1948 Unknown [id number] 2.16.840.1.163739.3.579. 2.593 1948 Unknown [id number] 2.16.840.1.502536.3.579. 2.593 1948 Unknown [id number] 2.16.840.1.761634.3.579. 2.593 1948 Unknown [id number] 2.16.840.1.175863.3.579. 2.593 1948 Unknown [id number] 2.16.840.1.741837.3.579. 2.593 1948 Unknown [id number] 2.16.840.1.675300.3.579. 2.593 1950 Unknown [id number] 2.16.840.1.517762.3.579. 2.593 1950 Unknown [id number] 2.16.840.1.789182.3.579. 2.593 1950 Unknown [id number] 2.16.840.1.875709.3.579. 2.593 1950 Unknown [id number] 2.16.840.1.335314.3.579. 2.1286 1950 Unknown [id number] 2.16.840.1.785040.3.579. 2.128 1948 Unknown [id number] 2.16840.1.974834.3.579. 2.128 1948 Unknown [id number] 2.16840.1.475276.3.579. 2.1258 1950 Unknown [id number] 2.16840.1.894786.3.579. 2.1258 1948 Unknown [id number] 2.840.1.135035.3.579. 2.1258 1948 Unknown [id number] 2.840.1.722986.3.579. 2.1258 1948 Unknown [id number] 2.840.1.081461.3.579. 2.1258 1948 Unknown [id number] 2.16840.1.672472.3.579. 2.125 1948 Unknown [id number] 2.840.1.298141.3.579. 2.1258 1948 Unknown [id number] 2.16840.1.123967.3.579. 2.1258 1948 Unknown [id number] 2.16840.1.353838.3.579. 2.1258 1948 Unknown [id number] 2.16840.1.472762.3.579. 2.1258 1948 Unknown [id number] 2.16840.1.041417.3.579. 2.1258 1948 Unknown [id number] 2.16.840.1.359438.3.579. 2.1286 1948 Unknown [id number] 2.16.840.1.903136.3.579. 2.128 1948 Unknown [id number] 2.16.840.1.704576.3.579. 2.128 1948 Unknown [id number] 2.16.840.1.939341.3.579. 2.128 1950 Unknown [id number] 2.16.840.1.993521.3.579. 2.1286 Medicare [id number] Unknown Unknown [id number] 2.16.840.1.358373.3.579. 2.531 Unknown [id number] 2.16840.1.007462.3.579. 2.531 Unknown [id number] 2.840.1.239913.3.579. 2.531 Social History Date Type Detail Facility Start: 02-05-2024 End: 02-20-2025 Tobacco smoking status NHIS Never smoked tobacco (finding) [facility] Start: 1950 Sex Assigned At Female F [facility] Start: 01-09-2024 End: 07-14-2024 Alcoholic beverage intake Lifetime non-drinker (finding) [facility] Start: 10-21-2020 End: 01-09-2024 History of Social function [facility] Start: 10-21-2020 End: 01-09-2024 Tobacco use panel [facility] Start: 1950 Sex assigned at Not on file N [facility] Start: 09-28-2017 Tobacco use and exposure Smokeless tobacco non-user [facility] Start: 07-16-2024 End: 12-31-2024 Alcoholic beverage intake Current non-drinker of alcohol (finding) [facility] Childcare Unknown [facility] Start: 04-15-2015 Sex Female (finding) [facility] Goals Date Patient Goal Desired Activity /State Clinical Notes 02-14-2022 to 02-19-2025 Note Date & Type Note Facility 02-19-2025 Evaluation note Diagnosis Onset Date Resolution Left lumbosacral radiculopathy acute February 19, 2025 2:18pm Spondylolisthesis, lumbar region acute February 19, 2025 2:18pm Chronic pain acute March 11 7:53am Myalgia acute March 11, 2025 7:53am Thoracic back pain acute March 112024 7:53am [facility] Work Phone: 1(815) 939-623206-12-2025 Evaluation note* Diagnosis Onset Date Resolution Status Admit Date Left lumbosacral radiculopathy acute February 19, 2025 2:18pm Spondylolisthesis, lumbar region acu te February 19, 2025 2:18pm Chronic pain acute March 11 7:53am Myalgia acute March 11, 2025 7:53am Thoracic back pain acute March 112024 7:53am Left lumbosacral radiculopathy acute March 26, 2025 2:23pm Spondylolisthesis, lumbar region acu te March 26, 2025 2:23pm [facility] Work Phone: 1(495) 303-861306-12-2025 Evaluation note* Diagnosis Onset Date Resolution Status Admit Date Left lumbosacral radiculopathy acute February 19, 2025 2:18pm Spondylolisthesis, lumbar region acu te February 19, 2025 2:18pm Chronic pain acute March 11 7:53am Myalgia acute March 11, 2025 7:53am Thoracic back pain acute March 112024 7:53am Left lumbosacral radiculopathy acute March 26, 2025 2:23pm Spondylolisthesis, lumbar region acu te March 26, 2025 2:23pm Chronic pain acute April 02, 2 8:55am Myalgia acute April 02 8:55am Shoulder pain, right acute April 02, 2025 8:55am Thoracic back pain acute March 112024 8:55am [facility] Work Phone: 1(500) 358-222606-12-2025 Evaluation note* Diagnosis Onset Date Resolution Status Admit Date Left lumbosacral radiculopathy acute February 19, 2025 2:18pm Spondylolisthesis, lumbar region acu te February 19, 2025 2:18pm Chronic pain acute March 11 7:53am Myalgia acute March 11, 2025 7:53am Thoracic back pain acute March 112024 7:53am Left lumbosacral radiculopathy acute March 26, 2025 2:23pm Spondylolisthesis, lumbar region acu te March 26, 2025 2:23pm Chronic pain acute April 02 025 8:55am Myalgia acute April 02 8:55am Shoulder pain, right acute April 02, 2025 8:55am Thoracic back pain acute March 112024 8:55am GERD (gastroesophageal reflu x disease) acute April 27 1:29pm Osteoporosis acute April 27, 2025 1:29pm Postmenopausal acute April 1:29pm Stomach ulcer acute April 1:29pm [facility] Work Phone: 1(721) 655-126706-12-2025 Evaluation note* Diagnosis Onset Date Resolution Status Admit Date Left lumbosacral radiculopathy acute February 19, 2025 2:18pm Spondylolisthesis, lumbar region acu te February 19, 2025 2:18pm Chronic pain acute March 11 7:53am Myalgia acute March 11, 2025 7:53am Thoracic back pain acute March 112024 7:53am Left lumbosacral radiculopathy acute March 26, 2025 2:23pm Spondylolisthesis, lumbar region acu te March 26, 2025 2:23pm Chronic pain acute April 02, 2 025 8:55am Myalgia acute April 02 8:55am Shoulder pain, right acute April 02, 2025 8:55am Thoracic back pain acute March 112024 8:55am GERD (gastroesophageal reflu x disease) acute April 27 1:29pm Osteoporosis acute April 27, 2025 1:29pm Postmenopausal acute April 1:29pm Stomach ulcer acute April 1:29pm Chronic pain acute May 04, 2025 8:05am Myalgia acute May 04, 2 025 8:05am Shoulder pain, right acute Augu st 2024 8:05am Thoracic back pain acute May 04, 2025 8:05am [facility] Work Phone: 1(403) 615-862804-17-2025 History of Present illness Narrative* Kaitlin Macdonald, HOUSE PIPING INSPECTOR-NEON SIGN WORKER - 12/25/2024 10:00 AM EDT Images from the original note were not [...] bowels. She will have a bowel movement andthen 5 minutes later have to go again. [...] was March [address] Sanchez at [facility]. Sigmoid diverticular stricture noted, able to pass [...] Back pain COPD (chronic obstructive pulmonary disease) ([facility]) Diverticulitis GERD (gastroesophageal reflux disease) Hyperlipidemia Hypertension Pancreatitis Peptic ulceration Pneumonia PONV (postoperative nausea and vomiting) Prolonged emergence from general anesthesia Rectal bleeding Stroke ([facility]) x2, patient states light strokes Visual impairment Past Surgical History: Procedure Laterality Date APPENDECTOMY BACK SURGERY LOWER CHOLECYSTECTOMY 2017 patient states did not have this surgery COLONOSCOPY COLONOSCOPY N/A 05/26/2021 Performed by Freeman Michelle DO at [facility] EGD N/A 10/01/2017 Performed by Freeman Michelle DO at [facility] ESOPHAGOGASTRODUODENOSCOPY ESOPHAGOGASTRODUODENOSCOPY N/A 05/26/2021 Performed by Freeman Michelle DO at [facility] ESOPHAGOGASTRODUODENOSCOPY DIAGNOSTIC N/A 07/28/2024 Performed by Nidia White MD at [facility] HYSTERECTOMY KNEE ARTHROSCOPY Right patient denies sugery, [...] total) by mouth every 6 (six) hours asneeded for pain., Disp: , Rfl: aspirin 81 mg, Take 1 tablet (81 mg total) by mouth in the morning., Disp: , Rfl: clopidogreL (PLAVIX) 75 mg tablet, Take 1 tablet (75 mg total) by mouth in the morning., Disp: , Rfl: metoprolol tartrate (LOPRESSOR) 50 mg tablet, Take 1 tablet (50 mg total) by mouth in the morning.,Disp: , Rfl: pantoprazole (PROTONIX) 40 mg EC tablet, Take 1 tablet (40 mg total) by mouth in the morning., Disp: , Rfl: sucralfate (CARAFATE) 1 gram tablet, Take 1 tablet (1 g total) by mouth in the morning and 1 tablet(1 g total) at noon and 1 tablet [...] Interpersonal Safety: Unknown (11/01/2023) Received from [facility] Safety & Environment Fear of Current or [...] patient/family/caregiver Referring and communicating with other health healthcare liaison Bright red blood per rectum [K62.5] TAMIE REYES [facility] General Surgery [place] This note was created with the assistance of a speech recognition program. While intending to generate a timely document that accurately reflects the content of the visit, no guarantee can be provided that every grammatical or spelling mistake has been or will be identified or corrected. Thank you for your understanding. TAMIE Reyes 12/31/24 1056 documented in this encounterDetw[facility]12-[facility] History of Present illness Narrative* Raven Sesay, - 08/11/2024 2:15 PM EST Images from the original note were not [...] ulcer GERD (gastroesophageal reflux disease) HTN (hypertension) ([facility]/HCC) Osteoporosis (CMS/HCC) Pancreatitis Rheumatic fever Past Surgical History: Procedure Laterality Date APPENDECTOMY BACK SURGERY 1991 HEART CATH HM MAMMOGRAPHY 2012 HYSTERECTOMY Diabetes LUMBAR SPINE SURGERY NECK SURGERY OTHER SURGICAL HISTORY Sigmoid Diverticulosis OTHER SURGICAL HISTORY 2017 perforated ulcer LA ARTHRS KNE SURG W/MENISCECTOMY MED/LAT W/SHVG Right [...] , wrist extensors , wrist flexor , mail deliverer strength 5/5. LUE Strength deltoid , biceps , triceps , wrist extensors , wrist flexor , mail deliverer strength 5/5. RLE Strength illopsoas, quadriceps, tibialis [...] reflex 0 . Metzger's sign negative. Coordination: Bfchlr-gr-pdgc testing and rapid alternating movements are normal Gait: Patient ambulates with a walker Review and summary of old records: EMG of the left upper extremity on 07/17/2024: A remote C8 radiculopathy on the left which is hfxh-[id number]. No evidence of plexopathy or mononeuropathy. Venous [...] She points to paresthesias in the fingertips ofthe left hand especially the 3rd and 4th [...] plan, and return instructions documented in this encounterMissouri Delta Medical [id number] Miscellaneous Notes* Telephone Encounter - Angelica Dawson CMA - 08/04/2024 2:31 PM EST ----- Message from Dr. Nidia White MD sent at 08/01/2024 12:06 PM EST ----- Regarding: Pathology Please let patient know that biopsies from EGD were negative for any issues. Thank you ----- Message ----- From: Interface - Lab Results/Orders In Sent: 07/31/2024 8:17 PM EST To: Nidia White MD * Telephone Encounter - Angelica Dawson CMA - 08/04/2024 2:31 PM EST Spoke with patient regarding pathology results. Patient verbally understood with no further questions. documented in this encounterDetw[facility]11-25-2024 Telephone encounter Note* Telephone Encounter - Angelica Dawson CMA - 08/04/2024 2:31 PM EST ----- Message from Dr. Nidia White MD sent at 08/01/2024 12:06 PM EST ----- Regarding: Pathology Please let patient know that biopsies from EGD were negative for any issues. Thank you ----- Message ----- From: Interface - Lab Results/Orders In Sent: 07/31/2024 8:17 PM EST To: Nidia White MD [facility] Telephone encounter Note* Telephone Encounter - Angelica Dawson CMA - 08/04/2024 2:31 PM EST Spoke with patient regarding pathology results. Patient verbally understood with no further questions. [facility] Flashnotes [id number] Miscellaneous Notes* Perioperative Nursing Note - Sakina Marvin RN - 07/22/2024 3:10 PM EST Preoperative Education Checklist- General Surgery date: 07/28/24 Surgery time: 0915 Arrival time: 0715 1. Bring a photo ID and your insurance card with you the day of surgery. You will check in at the main lobby of the [facility]- registration desk is straight ahead as soon as you walk in. Tell them you are here for surgery. 2. If you have a Living Will/Durable Power of [employer]stream Biomanufacturing Technician for Health Care that is not on [...] after you have bathed. 5. NO nail canadian/acrylic on at least one finger. If you are having a hand, wrist or foot surgery then all nail canadian and artificial/acrylic nails must be removed from [...] least 8 hours and marijuana for 24 hoursprior to arrival for your surgery. 16. If [...] please call the Preadmission Testing office at [phone], Mon.-Fri. 7 a.m.-3 p.m. Leave a voicemail [...] days prior to procedure documented in this encounterDetwiler [facility]11-12-2024 Nurse Note* Perioperative Nursing Note - Sakina Marvin RN - 07/22/2024 3:10 PM EST Preoperative Education Checklist- General Surgery date: 07/28/24 Surgery time: 914 Arrival time: 714 1. Bring a photo ID and your insurance card with you the day of surgery. You will check in at the main lobby of the [facility]- registration desk is straight ahead as soon as you walk in. Tell them you are here for surgery. 2. If you have a Living Will/Durable Power of Upstream Biomanufacturing Technician for Health Care that is not on [...] after you have bathed. 5. NO nail canadian/acrylic on at least one finger. If you are having a hand, wrist or foot surgery then all nail canadian and artificial/acrylic nails must be removed from [...] least 8 hours and marijuana for 24 hoursprior to arrival for your surgery. 16. If [...] please call the Preadmission Testing office at [phone], Mon.-Fri. 7 a.m.-3 p.m. Leave a voicemail [...] Stop taking 0 days prior to procedure [facility]11-07-2024 History of Present illness Narrative* KALI Wolfe - 07/17/2024 9:00 AM EST Images from the original note were not included. Reason for Appointment: EMG Patient: Sheila Mac : 1950 EMG Computer: [employer] Referring Physician: Dr. Raven Sesay EMG: CINTHYA production crew supervisor: Jarrett Palmer RT(R) Office Location: [place] Reason for EMG: c/o numbness/tingling in left hand especially in 3rd 4th 5th digits, weakness in left hand. Hx of surgery to neck. No hx of DM. Taking ASA & Plavix. Comments: Procedure was explained to the patient & who expressed understanding. Patientappeared to have tolerated the test well despite some discomfort due to the nature of the test. documented in this encounterMissouri Delta Medical [id number] History of Present illness Narrative* Kaitlin Macdonald, SAMY-NEON SIGN WORKER - 07/16/2024 11:30 AM EST Images from the original note were not [...] any hematemesis or black tarry stools. She alsoreports dysphagia. She was eating toast this morning and drank milk and it all came right back up. She states she has lost 6 lb due to symptoms. She drinks 1 Pepsi daily. She does not smoke. Her lastEGD was in [address] Michelle. She has a known hiatal hernia. She has a history of gastric ulcerin 2017. She is on aspirin and Plavix [...] Diagnosis Date COPD (chronic obstructive pulmonary disease) ([facility]) Diverticulitis GERD (gastroesophageal reflux disease) Hyperlipidemia Hypertension Pancreatitis Peptic ulceration PONV (postoperative nausea and vomiting) Stroke ([facility]) x2, patient states light strokes Visual impairment Past Surgical History: Procedure Laterality Date APPENDECTOMY BACK SURGERY LOWER CHOLECYSTECTOMY 2016 COLONOSCOPY COLONOSCOPY N/A 05/26/2021 Performed by Freeman Michelle DO at [facility] EGD N/A 10/01/2017 Performed by Freeman Michelle DO at [facility] ESOPHAGOGASTRODUODENOSCOPY ESOPHAGOGASTRODUODENOSCOPY N/A 05/26/2021 Performed by Freeman Michelle DO at [facility] HYSTERECTOMY KNEE ARTHROSCOPY Right patient denies sugery, [...] total) by mouth every 6 (six) hours asneeded for pain., Disp: , Rfl: aspirin 81 mg, Take 1 tablet (81 mg total) by mouth in the morning., Disp: , Rfl: atorvastatin (LIPITOR) 40 mg tablet, Take 1 tablet (40 mg total) by mouth in the morning., Disp: , Rfl: calcitonin, salmon, (MIACALCIN) 200 unit/actuation nasal spray, Administer 1 spray into alternatingnostrils in the morning., Disp: , Rfl: clopidogreL (PLAVIX) 75 mg tablet, Take 1 tablet (75 mg total) by mouth in the morning., Disp: , Rfl: metoprolol tartrate (LOPRESSOR) 25 mg tablet, Take 1 tablet (25 mg total) by mouth in the morning.,Disp: , Rfl: pantoprazole (PROTONIX) 40 mg EC tablet, Take 1 tablet (40 mg total) by mouth in the morning., Disp: , Rfl: sucralfate (CARAFATE) 1 gram tablet, Take 1 tablet (1 g total) by mouth in the morning and 1 tablet(1 g total) at noon and 1 tablet [...] Interpersonal Safety: Unknown (11/01/2023) Received from [facility] Safety & Environment Fear of Current or [...] patient/family/caregiver Referring and communicating with other health healthcare liaison Vomiting in adult [R11.10] KAITLIN MACDONALD APRN-NEVAEH [facility] General Surgery [place] This note was created with the assistance of a speech recognition program. While intending to generate a timely document that accurately reflects the content of the visit, no guarantee can be provided that every grammatical or spelling mistake has been or will be identified or corrected. Thank you for your understanding. TAMIE Reyes 07/16/24 1232 documented in this encounterDetwiler [facility] Hospital11-05-2024 History of Present illness Narrative* Cleve Arguelles Meryl, - 07/15/2024 10:30 AM EST Images from the original note were not included. HISTORY OF PRESENT ILLNESS: Sheila Mac is an 74 y.o. @ female. Chief complaint RT hip pain RT hip: using calcitonin NS Pt went to [facility] ER 06/13, X-rays done pelvis and lumbar. RX for lidoderm patches given, she states she could hardly walk. RT hip pain x 3-4 months, worsened on 05/31 after going to the grocery store. Denies injury. She hadinjections at [facility] in April without relief. She saw Dr Thompson 06/02 and 06/04, given IM injections-no relief. She is walking better, using rollator. Mild ache in the thigh. Using pain spray daily Saw Dr Thompson 06/02 and 06/04. XR done at [facility] 06/02/24. Using hot icy hot. Given IM torodol, Tramadol RX and PT ordered, XR [place] [facility] 06/05/24, MRI [facility] 06/12/24, [facility] ER 06/13/24, lidoderm patches, calcitonin NS [...] UNIT/ACT nasal spray Administer 1 spray into onenostril Daily 3.7 mL 0 No current facility-administered medications on file prior to visit. MEDICAL HISTORY: Past Medical History: Diagnosis Date Diabetes (CMS/HCC) Diverticulitis Gastric ulcer GERD (gastroesophageal reflux disease) HTN (hypertension) ([facility]) Osteoporosis ([facility]) Pancreatitis Rheumatic fever ALLERGIES: Allergies Allergen Reactions Iodinated Contrast Media Morphine Penicillins Nsaids Rash VITALS: Visit Vitals Smoking Status Never PHYSICAL EXAM: Ortho Exam RIGHT HIP Using Rollator Strength 4/5 ROM 30 IR and 30 ER IMAGING: June 05, 2024 x-rays from the [place] office AP pelvis and lateral of the right hip demonstrate an intact hip joint space. There are no fractures detected. The bone has an osteopenic appearance.The joint spaces are symmetric. There is no obvious effusion or soft tissue swelling. Impression: No acute findings on x-rays of the right hip Hemal Sheth D.O. MRI of the right hip from the [facility]. There is a sacral insufficiency [...] of multiple pubic rami, right, initial encounter ([facility]) S32.591A calcitonin, salmon, (Miacalcin) 200 UNIT/ACT [...] Dr. Sheth/ashley Sheth D.O. documented in this encounterMissouri Delta Medical [id number] History of Present illness Narrative* Raven Sesay DO - 07/14/2024 1:30 PM EST Images from the original note were not included. Chief complaint: Left hand numbness Subjective Sheila Arguelles Bryanrochelle, 74 y.o., female Sheila is here for a neurologic consult at the request of Dr. Sheth for left hand numbness. Sheis here with her . Patient states she had a colonoscopy in March and when she came out of anesthesia her hand was twisted and has been numb since. She describes this as feeling like she has a glove on her hand. This is constant. She states she has problems using her fingers at times. She doesreports dropping items at times. She denies this [...] headaches. Past Medical History: Diagnosis Date Diabetes ([facility]) Diverticulitis Gastric ulcer GERD (gastroesophageal reflux disease) HTN (hypertension) ([facility]) Osteoporosis ([facility]) Pancreatitis Rheumatic fever Past Surgical History: Procedure Laterality Date APPENDECTOMY BACK SURGERY 1991 HEART CATH MAMMOGRAPHY 2012 HYSTERECTOMY Diabetes LUMBAR SPINE SURGERY NECK SURGERY OTHER SURGICAL HISTORY Sigmoid Diverticulosis OTHER SURGICAL HISTORY 2017 perforated ulcer LA ARTHRS KNE SURG W/MENISCECTOMY MED/LAT W/SHVG Right [...] , wrist extensors , wrist flexor , mail deliverer strength 5/5. LUE Strength deltoid , biceps , triceps , wrist extensors , wrist flexor , mail deliverer strength 5/5. RLE Strength illopsoas, quadriceps, tibialis [...] reflex 0 . Metzger's sign negative. Coordination: [id number]-[id number] testing and rapid alternating movements are normal [...] She points to paresthesias in the fingertips ofthe left hand especially the 3rd and 4th [...] plan, and return instructions documented in this encounterMissouri Delta Medical [id number] History of Present illness Narrative* Cleve Sheth, DO - 06/17/2024 1:30 PM EDT Images from the original note were not included. HISTORY OF PRESENT ILLNESS: Sheila Mac is an 74 y.o. @ female. Chief complaint RT hip pain RT hip: here for MRI results [facility] 06/12/24 Pt went to [facility] ER 06/13, X-rays done pelvis and lumbar. RX for lidoderm patches given, she states she could hardly walk. RT hip pain x 2-3 months, worsened on 05/31 after going to the grocery store. Denies injury. She hadinjections at [facility] in April without relief. She saw Dr Thompson 06/02 and 06/04, given IM injections-no relief. She is having difficulty walking, using a walker. Pain with WB. Pain in the buttock, hamstringand inner thigh. Pain can be aching and sharp. Difficulty with sit to stand. Pain 1/10 at rest, goes to 10/10 with WB. Taking tramadol and TYL, using icy hot. Tried lidoderm patches without relief. Saw Dr Thompson 06/02 and 06/04. XR done at [facility] 06/02/24. Using hot icy hot. Given IM torodol, Tramadol RX and PT ordered, XR [place] [facility] 06/05/24, MRI [facility] 06/12/24, [facility] ER 06/13/24, lidoderm patches I reviewed notes from [facility] emergency department dated June 13, 2024. Patient was evaluated for left-sided hip pain and was prescribed lidocaine patches. She was recommended to take Tylenol.She is recommended to follow up with me. [...] HISTORY: Past Medical History: Diagnosis Date Diabetes ([facility]) Diverticulitis Gastric ulcer GERD (gastroesophageal reflux disease) HTN (hypertension) ([facility]) Osteoporosis ([facility]) Pancreatitis Rheumatic fever ALLERGIES: Allergies Allergen Reactions [...] IMAGING: June 05, 2024 x-rays from the [place] office AP pelvis and lateral of the right hip demonstrate an intact hip joint space. There are no fractures detected. The bone has an osteopenic appearance.The joint spaces are symmetric. There is no obvious effusion or soft tissue swelling. Impression: No acute findings on x-rays of the right hip Hemal [place] I reviewed an MRI of the right hip from the [place] imaging center. There is a sacral insufficiencyfracture and suspected insufficiency fractures of the right superior and inferior pubic rami. The right hip joint is intact and there are no fractures in the hip. There is loss of articular cartilage in the right hip consistent with arthritis. ASSESSMENT: ICD-10-CM 1. Chronic right hip pain M25.551 G89.29 2. Sacral insufficiency fracture, initial encounter ([facility]) M84.48XA 3. Closed fracture of multiple pubic rami, right, initial encounter ([facility]) S32.591A calcitonin, salmon, (Miacalcin) 200 UNIT/ACT nasal spray PLAN: I explained the diagnosis and reviewed treatment options. I answered all of the patient's questions. I am recommending nonsurgical treatment. I have recommended supplemental calcium and vitamin-D andcalcitonin nasal spray. Weight-bearing as tolerated with an assistive device such as a walker or cane. Follow up in one month, no xrays, any issues/concerns follow up sooner. Dr. Sheth obtained h istory and examined the patient, I am acting as scribe for Dr. Sheth/ashley Sheth D.O. documented in this encounterMissouri Delta Medical [id number] History of Present illness Narrative* Cleve Sheth DO - 06/05/2024 1:30 PM EDT Images from the original note were not included. HISTORY OF PRESENT ILLNESS: Sheila Mac is an 74 y.o. @ female. Chief complaint RT hip pain New problem: RT hip pain. Dr Thompson referral. XR [facility] 06/03/24 RT hip pain x 2-3 months, worsened on 05/31 after going to the grocery store. Denies injury. She hadinjections at [facility] in April without relief. She saw Dr Thompson 06/02 and 06/04, given IM injections-no relief. She is having difficulty walking, using a walker. Pain with WB. Pain in the buttock, hamstringand inner thigh. Pain can be aching and sharp. Difficulty with sit to stand. Pain 1/10 at rest, goes to 10+/10 with WB. Has not started tramadol, will picker / packer today. Taking TYL, using icy hot. Saw Dr Thompson 06/02 and 06/04. XR done at [facility] 06/02/24. Using hot icy hot. Given IM torodol, Tramadol RX and PT ordered I reviewed notes from the patient's primary care provider Dr. Thompson dated June 04, 2024. The patient was [...] HISTORY: Past Medical History: Diagnosis Date Diabetes ([facility]) Diverticulitis Gastric ulcer GERD (gastroesophageal reflux disease) HTN (hypertension) ([facility]) Osteoporosis ([facility]) Pancreatitis Rheumatic fever ALLERGIES: Allergies Allergen [...] report of the right hip from the [facility] dated May of 2024 slightnarrowing of the right hip joint space was [...] Dr. Sheth/ashley Sheth D.O. documented in this encounterCody Ville [id number] Telephone encounter Note* Telephone Encounter - Bella Saavedra - 06/05/2024 11:40 AM EDT $40.00 copay / Prior auth needed. [facility] [id number] Miscellaneous Notes* Telephone Encounter - Bella Saavedra - 06/05/2024 11:40 AM EDT $40.00 copay / Prior auth needed. documented in this encounterMissouri Delta Medical [id number] Procedure [facility]05[facility]28[facility]2024 Procedure [facility]04-07-2023 NoteCardiology Follow Up Progress Note Chief Complaint: post [...] agreeable. She will be (more content not included)...[facility] 12-15-2022 NoteReview of Systems Cardiovascular: Positive for leg swelling. Respiratory: Positive for shortness of breath. Skin: Positive for color change. Neurological: Positive for headaches. All other systems reviewed and are negative.[facility] 07-25-2022 NotePROCEDURE: MRA NECK WO CON HISTORY: Bilateral carotid [...] to atherosclerotic disease. Electronically authenticated by: DANIEL PINEDA Date: 2022-07-25 13:25[facility] NotePROCEDURE: XR FOOT LT MIN 3 VIEWS HISTORY: Pain in left foot ; acute plantar pain COMPARISON: None. FINDINGS: BONES:No fracture, acute abnormality, or significant arthropathy. SOFT TISSUES:No visible soft tissue swelling. EFFUSION:None visible. OTHER: Negative. IMPRESSION: 1. No acute abnormality, significant degenerative changes, or findings to account for patient's symptoms. Electronically authenticated by: DANIEL PINEDA Date: 2022-05-11 12:51[facility]06-07-2022 NotePROCEDURE: XR KNEE LT 4V or > COMPARISON: None. HISTORY: Osteoarthritis FINDINGS: BONES:No fracture, acute abnormality, or significant arthropathy. SOFT TISSUES:Negative. No visible soft tissue swelling. EFFUSION:Moderate suprapatellar joint effusion OTHER: Negative. IMPRESSION: Moderate joint effusion Electronically authenticated by: GODWIN BECK Date: 2022-02-14 17:30[facility] CenterEvaluation noteNo assessment information availableNorwalk Memorial Hospital Work Phone: Evaluation note* Diagnosis Onset Date Resolution Status Duodenal diverticulum acute Hiatal hernia acute IBS (irritable bowel syndrome) acute Screening for colon cancer a [facility] Work Phone: Evaluation note* Diagnosis Chronic right hip pain- Primary Sacral insufficiency fracture, initial encounter ([facility]) Closed fracture of multiple pubic rami, right, initial encounter ([facility]) documented [facility] this encounter [facility]* Diagnosis Paresthesia- Primary Disturbance of skin sensation documented in this encounter [facility]* Diagnosis Chronic right hip pain- Primary Sacral insufficiency fracture with routine healing, subsequent encounter Closed fracture of multiple pubic rami, right, initial encounter ([facility]) documented in this encounter [facility] [...] Dysphagia, unspecified type documented in this encounter [facility]* Diagnosis Bright red blood per rectum- Primary Hemorrhage of rectum and anus documented in this encounter [facility] SystemHistory and physical note Author Ben Sanchez [facility] February 05, 2024 1:08pm Note Date/Time February 05, 2024 1:08p m [facility] [address] [place] [address] Gastroenterology H&P Signed Patient: Sheila Mac MR#: [id number] : 1950 Acct:[id number] Age/Sex: 73 / F Adm Date: 4 Loc: Room: Type: [facility] Attending Dr: Ben Sanchez MD Copies to: [...] MD Documented By: Ben Sanchez MD 02/05/24 8469 Signed By: <Electronically signed by Ben Sanchez MD> 02/05/24 6209 [facility] Work Phone: History and physical note Author Ben Sanchez [facility] March 26, 2024 10:37am Note Date/Time March 26, 2024 10:3 7am [facility] [address] [place] [address] Gastroenterology H&P Signed Patient: Sheila Mac MR#: [id number] : 1950 Acct:[id number] Age/Sex: 73 / F Adm Date: 4 Loc: Room: Type: [facility] Attending Dr: Ben Sanchez MD Copies to: [...] signed by Ben Sanchez MD> 03/26/24 1037 [facility] Work Phone: Hospital Discharge instructionsAmbulatory Orders* Referral to Orthopedic Surgery Location: None Selected [facility] Work Phone: InstructionsNot on filedocumented in this encounter [facility] SystemInstructionsNot on filedocumented in this encounter [facility] SystemInstructionsNot on filedocumented in this encounter [facility] SystemInstructionsNot on filedocumented in this encounter [facility] SystemInstructions* Attachments The following attachments cannot be sent through Care Everywhere. * Hemorrhoids (Arabic) documented in this encounterProSelect Medical [facility] Shawca Health SystemReason for referral (narrative)No reason for referral information availableWright-Pat[facility]tr Work Phone: Reason for visit Narrative* Consultation (Routine) - Closed Specialty Diagnoses / Procedures Referred By Nadine t Referred To Contact Neurology Diagnoses Brachial plexopathy Ulnar neuropathy of left upper extremity Procedures LA OFFICE/OUTPATIENT NEW HIGH MDM 60 MINUTES Cleve Sheth, [address] [facility] [address] [place] [address] Phone: tel: fax: Daniel Patiño MD [address] [place] [address] Phone: tel: fax: Referral ID Status Reason Start Date Expiration Date V isits Requested Visits Authorized [id number] Closed Consult and Treat 2024 10/05/2024 1 1 [facility] Summary Purpose Family History Relationship Condition Age at Onset Recorded Date/T elizabeth father Unknown Not Specified Unknown Relationship Condition Age at Onset Recorded Date/T elizabeth father Unknown mother Unknown Advance Directives Advance Directive Response Recorded Date/ Time Advance Directives No January 21 3:15pm Advance Directive Response Recorded Date/ Time Advance Directives No February 20 11:35am Chief Complaint and Reason for Visit Chief [...] syndrome) Screening for colon cancer Chief Complaint Admit Date low back pain February 19, 2025 2:18 pm M81.0 M43.16 M54.2 February 26, 2025 10:1 3am Ref: Dr. Chicas- Thoracic Spine Pain March 11, 2025 7:53am M54.6 - Pain in thoracic spine March 11, 2025 8:42am Reason for Visit Admit Date Left lumbosacral radiculopathy February 2:18pm Spondylolisthesis, lumbar region February 192024 2:18pm Chronic pain March 11, 2025 7:53a m Myalgia March 11, 2025 7:53a m Thoracic back pain March 11, 2025 7:53a m Chief Complaint Admit Date low back pain February 19, 2025 2:18 pm M81.0 M43.16 M54.2 February 26, 2025 10:1 3am Ref: Dr. Chicas- Thoracic Spine Pain March 11, 2025 7:53am M54.6 - Pain in thoracic spine March 11, 2025 8:42am Review Imaging Results March 26, 2025 2 :23pm Reason for Visit Admit Date Left lumbosacral radiculopathy February 2:18pm Spondylolisthesis, lumbar region February 192024 2:18pm Chronic pain March 11, 2025 7:53a m Myalgia March 11, 2025 7:53a m Thoracic back pain March 11, 2025 7:53a m Left lumbosacral radiculopathy March 2:23pm Spondylolisthesis, lumbar region March 262024 2:23pm Chief Complaint Admit Date low back pain February 19, 2025 2:18 pm M81.0 M43.16 M54.2 February 26, 2025 10:1 3am Ref: Dr. Chicas- Thoracic Spine Pain March 11, 2025 7:53am M54.6 - Pain in thoracic spine March 11, 2025 8:42am Review Imaging Results March 26, 2025 2 :23pm [facility] April 02, 2025 8:55 am Reason for Visit Admit Date Left lumbosacral radiculopathy February 2:18pm Spondylolisthesis, lumbar region February 192024 2:18pm Chronic pain March 11, 2025 7:53a m Myalgia March 11, 2025 7:53a m Thoracic back pain March 11, 2025 7:53a m Left lumbosacral radiculopathy March 2:23pm Spondylolisthesis, lumbar region March 262024 2:23pm Chronic pain April 02, 2025 8:55 am Myalgia April 02, 2025 8:55 am Shoulder pain, right April 02, 2025 8:5 5am Thoracic back pain April 02, 2025 8:55 am Chief Complaint Admit Date low back pain February 19, 2025 2:18 pm M81.0 M43.16 M54.2 February 26, 2025 10:1 3am Ref: Dr. Chicas- Thoracic Spine Pain March 11, 2025 7:53am M54.6 - Pain in thoracic spine March 11, 2025 8:42am Review Imaging Results March 26, 2025 2 :23pm [facility] April 02, 2025 8:55 am M25.511 - Pain in right shoulder April 022024 9:53am Chief Complaint Admit Date low back pain February 19, 2025 2:18 pm M81.0 M43.16 M54.2 February 26, 2025 10:1 3am Ref: Dr. Chicas- Thoracic Spine Pain March 11, 2025 7:53am M54.6 - Pain in thoracic spine March 11, 2025 8:42am Review Imaging Results March 26, 2025 2 :23pm [facility] April 02, 2025 8:55 am M25.511 - Pain in right shoulder April 022024 9:53am CONSULT DR NEHAL ORTIZ DONE [facility] 03/02 ust 2024 1:29pm Reason for Visit Admit Date Left lumbosacral radiculopathy February 2:18pm Spondylolisthesis, lumbar region February 192024 2:18pm Chronic pain March 11, 2025 7:53a m Myalgia March 11, 2025 7:53a m Thoracic back pain March 11, 2025 7:53a m Left lumbosacral radiculopathy March 2:23pm Spondylolisthesis, lumbar region March 262024 2:23pm Chronic pain April 02, 2025 8:55 am Myalgia April 02, 2025 8:55 am Shoulder pain, right April 02, 2025 8:5 5am Thoracic back pain April 02, 2025 8:55 am GERD (gastroesophageal reflux disease) A ugust 2024 1:29pm Osteoporosis April 27, 2025 1: 29pm Postmenopausal April 27, 2025 1: 29pm Stomach ulcer April 27, 2025 1: 29pm Chief Complaint Admit Date low back pain February 19, 2025 2:18 pm M81.0 M43.16 M54.2 February 26, 2025 10:1 3am Ref: Dr. Chicas- Thoracic Spine Pain March 11, 2025 7:53am M54.6 - Pain in thoracic spine March 11, 2025 8:42am Review Imaging Results March 26, 2025 2 :23pm [facility] April 02, 2025 8:55 am M25.511 - Pain in right shoulder April 022024 9:53am CONSULT DR NEHAL ORTIZ DONE [facility] 03/02 ust 2024 1:29pm 1 mo fu trigger points/ consider shoulde r inj May 04, 2025 8:05am Reason for Visit Admit Date Left lumbosacral radiculopathy February 2:18pm Spondylolisthesis, lumbar region February 192024 2:18pm Chronic pain March 11, 2025 7:53a m Myalgia March 11, 2025 7:53a m Thoracic back pain March 11, 2025 7:53a m Left lumbosacral radiculopathy March 2:23pm Spondylolisthesis, lumbar region March 262024 2:23pm Chronic pain April 02, 2025 8:55 am Myalgia April 02, 2025 8:55 am Shoulder pain, right April 02, 2025 8:5 5am Thoracic back pain April 02, 2025 8:55 am GERD (gastroesophageal reflux disease) A ugust 2024 1:29pm Osteoporosis April 27, 2025 1: 29pm Postmenopausal April 27, 2025 1: 29pm Stomach ulcer April 27, 2025 1: 29pm Chronic pain May 04, 2025 8: 05am Myalgia May 04, 2025 8: 05am Shoulder pain, right May 04, 2025 8 :05am Thoracic back pain May 04, 2025 8: 05am Additional Source Comments INFORMATION SOURCE (unrecogn ized section and content) DATE CREATED AUTHOR 11/24/2018 [facility] DATE CREATED AUTHOR AUTHOR'S ORGANIZ ATION 12/19/2022 [facility] DATE CREATED AUTHOR AUTHOR'S ORGANIZ ATION 01/18/2023 [facility] DATE CREATED AUTHOR AUTHOR'S ORGANIZ ATION 08/04/2024 [facility] DATE CREATED AUTHOR AUTHOR'S ORGANIZ ATION 08/12/2024 [facility] DATE CREATED AUTHOR AUTHOR'S ORGANIZ ATION 12/27/2024 [facility] DATE CREATED AUTHOR AUTHOR'S ORGANIZ ATION 04/02/2025 [facility] DATE CREATED AUTHOR AUTHOR'S ORGANIZ ATION 04/03/2025 [facility] Care Teams (unrecognized sec tion and content) Team Status: Active Member Role Status Dates Krzysztof Thompson MD Primary Care Provider Active Team Status: Inactive Member Role Status Dates Krzysztof Thompson MD Primary Care Provider Active Start: February 19, 2025 End: February 19, 2025 Vasyl Chicas MD Attending Provider Active Star t: February 19, 2025 End: February 19, 2025 Team Status: Inactive Member Role Status Dates Krzysztof Thompson MD Primary Care Provider Active Start: February 26, 2025 End: February 26, 2025 Vasyl Chicas MD Attending Provider Active Star t: February 26, 2025 End: February 26, 2025 Team Status: Inactive Member Role Status Dates Krzysztof Thompson MD Primary Care Provider Active Start: March 11, 2025 End: March 11, 2025 Rickie Saucedo MD Attending Provider Active Sta rt: March 11, 2025 End: March 11, 2025 Vasyl Chicas MD Referring Provider Active Star t: March 11, 2025 End: March 11, 2025 Team Status: Active Member Role Status Dates Krzysztof Thompson MD Primary Care Provider Active Start: March 11, 2025 Rickie Saucedo MD Attending Provider Active Sta rt: March 11, 2025 Team Status: Active Member Role Status Dates Ben Sanchez MD Attending Provider Active S tart: January 16, 2024 Team Status: Inactive Member Role Status Dates Ben Sanchez MD Attending Provider Active S tart: February 05, 2024 End: February 05, 2024 Krzysztof Thompson MD Primary Care Provider Active Start: February 05, 2024 End: February 05, 2024 Team Status: Active Member Role Status Dates Ben Sanchez MD Attending Provider, Other Provide r Active Start: February 05, 2024 Krzysztof Thompson MD Primary Care Provider Active Start: February 05, 2024 Team Status: Inactive Member Role Status Dates Ben Sanchez MD Attending Provider Active S tart: February 19, 2024 End: February 19, 2024 Krzysztof Thompson MD Primary Care Provider Active Start: February 19, 2024 End: February 19, 2024 Team Status: Inactive Member Role Status Dates Krzysztof Thompson MD Primary Care Provider Active Start: March 26, 2024 End: March 26, 2024 Ben Sanchez MD Attending Provider Active S tart: March 26, 2024 End: March 26, 2024 Team Status: Active Member Role Status Fifi Thompson MD Primary Care Provider Active Start: March 26, 2024 Ben Sanchez MD Attending Provider, Other Provide r Active Start: March 26, 2024 Summer Child Caregiver Relationship Specialty Start Date End Date Krzysztof Thompson MD [address] [place] [facility] [place] [address] PCP - General Family Medicine 01/09/24 Summer Child Caregiver Relationship Specialty Start Date End Date Krzysztof Thompson MD [address] [place] [facility] [place] [address] PCP - General Family Medicine 01/09/24 Summer Child Caregiver Relationship Specialty Start Date End Date Krzysztof Thompson MD [address] [place] [facility] [place] [address] PCP - General Family Medicine 01/09/24 Summer Child Caregiver Relationship Specialty Start Date End Date Krzysztof Thompson MD [address] [place] [facility] [place] [address] PCP - General Family Medicine 01/09/24 Summer Child Caregiver Relationship Specialty Start Date End Date Krzysztof Thompson MD [address] [place] [facility] [place] [address] PCP - General Family Medicine 01/09/24 Raven Sesay DO [address], [facility] Referring Physician Neurology 07/14/24 Summer Child Caregiver Relationship Specialty Start Date End Date Krzysztof Thompson MD [address] [place] [facility] [place] [address] PCP - General Family Medicine 01/09/24 Raven Sesay DO [address] [place] [address] Referring Physician Neurology 07/14/24 Summer Child Caregiver Relationship Specialty Start Date End Date Krzysztof Thompson MD [address] [place] [address] PCP - General Family Medicine 01/09/24 Raven Sesay DO [address] [address] Referring Physician Neurology 07/14/24 Summer Child Caregiver Relationship Specialty Start Date End Date Krzysztof Thompson MD [address] [place] [address] PCP - General Family Medicine 01/09/24 Raven Sesay DO [address] [address] Referring Physician Neurology 07/14/24 Summer Child Caregiver Relationship Specialty Start Date End Date Krzysztof Thompson MD [address] [place] [address] PCP - General Family Medicine 01/09/24 Raven Sesay DO [address] [address] Referring Physician Neurology 07/14/24 Summer Child Caregiver Relationship Specialty Start Date End Date Krzysztof Thompson MD PCP - General 03/15/17 Summer Child Caregiver Relationship Specialty Start Date End Date Krzysztof Thompson MD PCP - General 03/15/17 Summer Child Caregiver Relationship Specialty Start Date End Date Krzysztof Thompson MD PCP General 03/15/17 Summer Child Caregiver Relationship Specialty Start Date End Date Krzysztof Thompson MD [facility] General 03/15/17 Summer Child Caregiver Relationship Specialty Start Date End Date Krzysztof Thompson MD PCP General 03/15/17 Team Status: Inactive Member Role Status Fifi Thompson MD Primary Care Provider Active Start: March 11, 2025 End: March 11, 2025 Rickie Saucedo MD Attending Provider Active Sta rt: March 11, 2025 End: March 11, 2025 Team Status: Inactive Member Role Status Fifi Thompson MD Primary Care Provider Active Start: March 26, 2025 End: March 26, 2025 Vasyl Chicas MD Attending Provider Active Star t: March 26, 2025 End: March 26, 2025 Team Status: Inactive Member Role Status Fifi Thompson MD Primary Care Provider Active Start: April 02, 2025 End: April 02, 2025 Rickie Saucedo MD Attending Provider Active Sta rt: April 02, 2025 End: April 02, 2025 Team Status: Inactive Member Role Status Fifi Thompson MD Primary Care Provider Active Start: April 27, 2025 End: April 27, 2025 Rickie Alvares MD Attending Provider Active Star t: April 27, 2025 End: April 27, 2025 Team Status: Inactive Member Role Status Fifi Thompson MD Primary Care Provider Active Start: May 04, 2025 End: May 04, 2025 Rickie Saucedo MD Attending Provider Active Sta rt: May 04, 2025 End: May 04, 2025 Reason for Visit (unrecogniz ed section and content) Reason Comments Pain Reason Onset Date Comments PT Initial Eval 06/05/2024 Contacted and of rosana to schedule PT eval per Dr. Thompson. She said she'd like to wait till after she is seen by Dr. Sheth today; she said she'd contact. Call Back 06/06/2024 She noted that s he will be having a CAT scan and Dr. Sheth has told her to hold-off till post. I said if I do not hear from her I will contact mid next week. FU 06/18/2024 Contacted to re uest update per Meryl and she said she was not advised to begin w/ PT due to fractures in bones. Reason Comments Follow-up Reason Comments Heartburn GERD, referred by Manish Luciano, [employer] Reason Comments Rectal Bleeding Rectal bleeding, las t colon with Dr. Sanchez at [facility] in 12/2023 Goals (unrecognized section and content) Goals may be documented in a n alternate section FOR RECORDS PERTAINING TO PATIENTS WHO ARE [...] BE BASED ON THE PRIMARY CLINICAL RECORDS. [email or web address] provides no warranty or guarantee of the accuracy or completeness of information in this document.
== END 2025-05-13 10:41 | disposition home or self-care (01) ==
PROVIDERS: PCP Family Medicine; Visit Provider Family Medicine
DX: N39.0 Urinary tract infection, site not specified (principal)
CPT/HCPCS: 81001; 87086; 87088; 87186

== ENCOUNTER 2025-05-19 07:04 | Outpatient (OUT) | payer MEDICARE, SELFPAY ==
--- NOTE | 2025-05-19 07:06 | US_ITS ---
The [address] [address] Patient Name: EDIN SAMANIEGO MRN: [id number] date: 1950 Sex: F Assigned Patient Location: US Current Patient Location: US Accession/Order Number: [id number] Exam Date: 05/19/2025 07:08 Report Date: 05/19/2025 11:04 At the request of: [email or web address] THOMPSON MD Procedure: US renal bladder BILATERAL RENAL AND BLADDER ULTRASOUND CLINICAL HISTORY: Urinary Tract Infection N39.0 COMPARISON: 04/29/2024 CT and 10/28/2023 ultrasound Estimation of renal size is approximately 7.4 cm on the right and 7.5 cm on the left. No shadowing calculi or hydronephrosis are identified. No renal mass lesions were imaged. There is no perinephric fluid. The urinary bladder is partially distended with a volume of 180 mL. No contour or intraluminal abnormalities are seen. The post void bladder volume is 3 mL. Bilateral ureteral jets are seen. US/US renal bladder IMPRESSION: NO OBSTRUCTIVE UROPATHY. Impression dictated by: Ling Fields M.D. 05/19/2025 11:04 AM Dictation Location: [place] [address] Electronically authenticated by: [id number] Y Date: 05/19/2025 11:04
--- OUTSIDE RECORDS SUMMARY | 2025-05-19 07:06 | XMS_ITS | Encounter Summary ---
Author Organization [employer] Sys tem Address [id number] [address] [place] [address] Care Team Providers Care Ice Guard Inspector Name Role Phone Alvaro Harp MD Primary Care Provider [phone] Encounter Details Date Type Department Care Team (Late st Contact Info) Description 11/25/2022 Orders Only [employer] [facility] [place] [address] Transcribe, Orders Support User Face pain (Primary Dx) Social History Tobacco Use Types Packs/Day Years Used Date Smoking Tobacco: Never Smokeless Tobacco: Never Alcohol Use Standard Drinks/Week Comments No 0 (1 standard drink = 0.6 oz pur e alcohol) Childcare Answer Date Recorded Childcare Unknown 02/19/2019 Employment Answer Date Recorded Employment Unknown 02/19/2019 Purpose - Life Answer Date Recorded Purpose and direction in life Unknown Comments No Sex and Gender Information Value Date Recorded Sex Assigned at Not on file Legal Sex Female 12:11 PM EDT Gender Identity Not on file Sexual Orientation Not on file documented as of this encounter Plan of Treatment Not on file documented as of this encounter Results * MR brain without contrast (11/24/2022 6:30 PM EDT) us Scanning Provider External IMG MRI ORDERABLES Fi nal Result * CT angiogram carotid (11/24/2022 12:05 PM EDT) us Scanning Provider External IMG CT ORDERABLES Fin al Result * CT angiogram head (11/24/2022 12:00 PM EDT) us Scanning Provider External IMG CT ORDERABLES Fin al Result * CT brain without contrast stroke alert (11/24/2022 10:35 AM EDT) us Scanning Provider External IMG CT ORDERABLES Fin al Result documented in this encounter Visit Diagnoses Diagnosis Face pain- Primary Headache documented in this encounter Care Teams Ice Guard Inspector Relationship Specialty Start Date End Date Alvaro Harp MD PCP - General 03/15/17 documented as of this encounter
--- OUTSIDE RECORDS SUMMARY | 2025-05-19 07:06 | XMS_ITS | Encounter Summary ---
Author Organization [facility] Address [address] [place] [address] Care Team Providers Care Store Person Name Role Phone Alvaro Harp MD Primary Care Provider [phone] Elio Sesay DO Unavailable [phone] Encounter Details Date Type Department Care Team ([facility] st Contact Info) Description 01/08/2024 Orders Only [facility] [address] [place] [address] Alvaro Harp MD [address] [facility] [place] [id number] Social History Tobacco Use Types Packs/Day Years Used Date Smoking Tobacco: Never Alcohol Use Standard Drinks/Week Comments Never 0 (1 standard drink = 0.6 oz pur e alcohol) Comments Unknown Sex and Gender Information Value Date Recorded Sex Assigned at Not on file Legal Sex Female 8:31 PM EDT Gender Identity Not on file Sexual Orientation Not on file documented as of this encounter Plan of Treatment Not on file documented as of this encounter Procedures Procedure Name Priority Date/Time Associated Diagnosis Comments CT ABDOMEN & PELVIS WO Routine 11:08 AM EDT US ABDOMEN LIMITED Routine 01/08/2024 11 :05 AM EDT LIPASE Routine 12/28/2023 11:24 AM EDT COMPREHENSIVE METABOLIC PANEL Routine 12/28/2023 11:21 AM EDT AMYLASE Routine 12/28/2023 11:20 AM EDT CREATININE Routine 12/27/2023 11:23 AM EDT US RENAL LIMITED Routine 10/27/2023 11:1 0 AM EST COMPREHENSIVE METABOLIC PANEL Routine 10/08/2023 11:23 AM EST CBC (INCLUDES DIFF/PLT) Routine 10/08/19 11:20 AM EST documented in this encounter Results * CT ABDOMEN & PELVIS WO (01/08/2024 11:08 AM EDT) Anatomical Region Laterality Modality Radiographic Nani ging us Alvaro Harp MD IMG XR PROCEDURES Final Result * US abdomen limited (01/08/2024 11:05 AM EDT) Anatomical Region Laterality Modality Abdomen Ultrasound us Alvaro Harp MD IMG US PROCEDURES Final Result * Lipase (12/28/2023 11:24 AM EDT) Blood Venous blood specimen / Unknown us Alvaro Harp MD LAB BLOOD ORDERABLES Final Resu lt * Comprehensive metabolic panel (12/28/2023 11:21 AM EDT) Blood Venous blood specimen / Unknown us Alvaro Harp MD LAB BLOOD ORDERABLES Final Resu lt * Amylase (12/28/2023 11:20 AM EDT) Blood Venous blood specimen / Unknown us Alvaro Harp MD LAB BLOOD ORDERABLES Final Resu lt * Creatinine (12/27/2023 11:23 AM EDT) Blood Venous blood specimen / Unknown us Alvaro Harp MD LAB BLOOD ORDERABLES Final Resu lt * Ultrasound renal limited (10/27/2023 11:10 AM EST) Anatomical Region Laterality Modality Body Ultrasound us Alvaro Harp MD IMG US PROCEDURES Final Result * Comprehensive metabolic panel (10/08/2023 11:23 AM EST) Blood Venous blood specimen / Unknown us Alvaro Harp MD LAB BLOOD ORDERABLES Final Resu lt * CBC and differential (10/08/2023 11:20 AM EST) Blood Venous blood specimen / Unknown us Alvaro Harp MD LAB BLOOD ORDERABLES Final Resu lt documented in this encounter Visit Diagnoses Not on filedocumented in this encounter Care Teams Store Person Relationship Specialty Start Date End Date Alvaro Harp MD PCP - General Family Medicine 01/09/24 Elio Sesay DO [address] [facility] [address] [place] [address] Referring Physician Neurology 07/14/24 documented as of this encounter
--- OUTSIDE RECORDS SUMMARY | 2025-05-19 07:06 | XMS_ITS | Encounter Summary ---
Author Organization [facility] Address [address] [place] [address] Care Team Providers Care Machine Try Out Setter Name Role Phone Alvaro Harp MD Primary Care Provider [phone] Elio Sesay DO Unavailable [phone] Encounter Details Date Type Department Care Team (Late st Contact Info) Description 07/16/2024 Orders Only [facility] SANDY [address] [facility] [address] [place] [phone] Yunior Brower MD [address] [facility] [address] [place] [address] Social History Tobacco Use Types Packs/Day Years [...] Procedure Name Priority Date/Time Associated Diagnosis Comments EMG AND NERVE CONDUCTION STUDY Routine 12/29/2013 3:21 PM EDT documented in this encounter Results * EMG AND NERVE CONDUCTION STUDY (12/29/2013 3:21 PM EDT) us Yunior Brower MD NEUROLOGY ORDERABLES Final Res ult documented in this encounter Visit Diagnoses Not on filedocumented in this encounter Care Teams Machine Try Out Setter Relationship Specialty Start Date End Date Alvaro Harp MD PCP - General Family Medicine 01/09/24 Elio Sesay DO [address] [place] [address] Referring Physician Neurology 07/14/24 documented as of this encounter
--- OUTSIDE RECORDS SUMMARY | 2025-05-19 07:06 | XMS_ITS | Clinical Summary ---
Author Organization [employer] Address [id number] [address] [place] [address] Care Team Providers Care Analysis Intern Name Role Phone Alvaro Harp MD Primary Care Provider [phone] Allergies Active Allergy Reactions Criticality Noted Date Comments Dye Swelling 03/23/2017 IV DYE Iodinated Contrast Media Anaphylaxis,Oth er (See Comments) High 12/07/2022 Morphine Nausea And Vomiting,Vomiting 07/16/2018 Morpholine Analogues Vomiting 03/23/2017 Nsaids (Non-Steroidal Anti-Inflammatory Drug) GI Bleeding 03/17/2024 Penicillins Rash Low 03/23/2017 Medications acetaminophen (TYLENOL) 500 mg tablet Take 1 tablet (500 mg total) by mouth every 6 (six) hours as needed for pain. Active pantoprazole (PROTONIX) 40 mg EC tablet Take 1 tablet (40 mg total) by mouth in the morning. Active sucralfate (CARAFATE) 1 gram tablet Take 1 tablet (1 g total) by mouth in the morning and 1 tablet (1 g total) at noon and 1 tablet (1 g total) in the evening and 1 tablet (1 g total) before bedtime. Active aspirin 81 mg Take 1 tablet (81 mg total) by mouth in the morning. 02/19/2024 Active clopidogreL (PLAVIX) 75 mg tablet Take 1 tablet (75 mg total) by mouth in the morning. 01/28/2024 Active metoprolol tartrate (LOPRESSOR) 50 mg tablet Take 1 tablet (50 mg total) by mouth in the morning. 03/27/2024 Active Active Problems Problem Noted Date Diagnosed Date Chronic pancreatitis 05/02/2017 Family History Medical History Relation Name Comments No Known Problems Father Heart disease Mother Relation Name Status Comments Father Mother Son 1 Alive Son 2 Alive Social History Tobacco Use Types Packs/Day Years Used Date Smoking Tobacco: Never Smokeless Tobacco: Never Alcohol Use Standard Drinks/Week Comments No 0 (1 standard drink = 0.6 oz pur e alcohol) Childcare Answer Date Recorded Childcare Unknown 02/19/2019 Employment Answer Date Recorded Employment Unknown 02/19/2019 Hunger Screening Answer Date Recorded Within the past 12 months we worried whether our food would run out before we got money to buy more. Never True 12/25/2024 Within the past 12 months th e food we bought just didn't last and we didn't have money to get more. Never True 12/25/2024 Purpose - Life Answer Date Recorded Purpose and direction in life Unknown Comments No Sex and Gender Information Value Date Recorded Sex Assigned at Not on file Legal Sex Female 12:11 PM EDT Gender Identity Not on file Sexual Orientation Not on file Last Filed Vital Signs Vital Sign Reading Time Taken Comments Blood Pressure 157/99 12/25/2024 10:07 AM EDT Pulse 89 12/25/2024 10:07 AM EDT Temperature 36.1 C (97 F) 07/28/2024 7:16 AM EST Respiratory Rate 20 07/28/2024 9:31 AM EST Oxygen Saturation 99% 07/28/2024 10:00 AM EST Inhaled Oxygen Concentration - - Weight 57.3 kg (126 lb 6.4 oz) 12/25/2024 10:07 AM EDT Height 162.6 cm (5' 4 ) 12/25/2024 10:07 AM EDT Body Mass Index 21.7 12/25/2024 10:07 AM EDT Plan of Treatment Health Maintenance Due Date Last Done Comments Depression Screening 1960 DTaP,Tdap and Td Vaccines (1 - Tdap) 1967 Fall Risk Screening 2013 Zoster (Shingles) Vaccine (3 of 3) 07/26/2019 05/31/2019, 08/11/2013 COVID-19 Vaccine (2023-2 5 season) 2024 07/13/2022, 02/10/2022, 06/29/2021, Additional history exists Influenza Vaccine 05/11/2025 06/19/2024, , 06/12/2022, Additional history exists Tobacco Screening 12/31/2025 12/31/2024 Medical Devices Not on file Insurance [employer] Care Teams Analysis Intern Relationship Specialty Start Date End Date Alvaro Harp MD PCP - General 03/15/17
--- OUTSIDE RECORDS SUMMARY | 2025-05-19 07:06 | XMS_ITS | Clinical Summary ---
Author Organization [facility] Address [address] [place] [address] Care Team Providers Care Floral Decorator Name Role Phone Alvaro Harp MD Primary Care Provider [phone] Elio Sesay DO Unavailable [phone] Allergies Active Allergy Reactions Criticality Noted Date Comments Iodinated Contrast Media 05/24/2023 Morphine 05/24/2023 Nsaids Rash Low 07/14/2024 Penicillins 05/24/2023 Medications aspirin 81 MG EC tablet Take 81 mg by mouth in the morning. Active atorvastatin (Lipitor) 40 MG tablet Take 40 mg by mouth in the morning. Active clopidogrel (Plavix) 75 MG tablet Take by mouth Daily. Active acetaminophen (Tylenol) 500 MG tablet Take 500 mg by mouth every 6 (six) hours if needed Active pantoprazole (ProtoNix) 40 MG EC tablet Take 40 mg by mouth at bedtime Active metoprolol tartrate (Lopressor) 25 MG tablet 4 Active sucralfate (Carafate) 1 g tablet TAKE 1 TABLET BY MOUTH ON AN EMPTY STOMACH FOUR TIMES DAILY 4 Active calcitonin, salmon, (Miacalcin) 200 UNIT/ACT nasal sprayIndication s:Closed fracture of multiple pubic rami, right, initial encounter ([facility]) Administer 1 spray into one nostril Daily 3.7 mL 4 Active gabapentin (Neurontin) 100 MG capsuleIndicati ons:Left hand pain Take 1 capsule (100 mg) by mouth in the morning and 1 capsule (100 mg) before bedtime. 60 capsule 2 4 Active Active Problems Problem Noted Date Diagnosed Date Internal derangement of right knee 01/09/2024 Primary osteoarthritis of left knee 01/09/2024 Costochondritis 05/24/2023 Diverticulitis 09/12/2018 Chronic pancreatitis 05/02/2017 Osteoporosis 07/29/2013 Degeneration of lumbar intervertebral disc 05/27 Pure hypercholesterolemia 03/18/2010 GERD (gastroesophageal reflux disease) 0 Disorder of autonomic nervous system 02/11/2010 Diabetes mellitus without complication 0 Chronic systolic heart failure 02/11/2010 Atherosclerosis of coronary artery 02/11/2010 Immunizations Immunization Administration Dates Next Due Influenza, High Dose Seasona l, Preservative Free 06/12/2022,06/18/2018,06/14/2016,06/03 Influenza, High-dose Seasona l, Quadrivalent, Preservative Free 05/30/2022,06/15/2021 Influenza, Seasonal, Quadriv alent, Adjuvanted 06/05/2023 Influenza, injectable, quadr ivalent, preservative free 05/22/2017 Influenza, seasonal, injectable 06/10/2014 Influenza, seasonal, intrade rmal, preservative free 06/30/2013 Pneumococcal Conjugate PCV 13 09/10/2014 Pneumococcal Polysaccharide PPSV23 07/14/2013 SARS-CoV-2, Unspecified 01/10/2021 Zoster, live 08/11/2013 Family History Medical History Relation Name Comments Cancer Father Heart disease Mother Relation Name Status Comments Father Mother Other Spouse Alive Social History Tobacco Use Types Packs/Day Years Used Date Smoking Tobacco: Never Tobacco Cessation:Counseling Given: Not Answered Alcohol Use Standard Drinks/Week Comments Never 0 (1 standard drink = 0.6 oz pur e alcohol) Comments Unknown Sex and Gender Information Value Date Recorded Sex Assigned at Not on file Legal Sex Female 8:31 PM EDT Gender Identity Not on file Sexual Orientation Not on file Last Filed Vital Signs Vital Sign Reading Time Taken Comments Blood Pressure 130/82 08/11/2024 2:21 PM EST Pulse 79 08/11/2024 2:21 PM EST Temperature 36.3 C (97.4 F) 01/09/2024 8:13 AM EDT Respiratory Rate - - Oxygen Saturation 97% 08/11/2024 2:21 PM EST Inhaled Oxygen Concentration - - Weight 60.2 kg (132 lb 12.8 oz) 08/11/2024 2:21 PM EST Height 160 cm (5' 3 ) 05/09/2022 12:00 PM EDT Body Mass Index 23.52 05/09/2022 12:00 PM EDT Plan of Treatment Health Maintenance Due Date Last Done Comments Influenza Vaccine (#1) 2025 4, 06/05/2023, 06/12/2022, Additional history exists Pneumococcal Vaccine: 65+ Years Completed 5, 07/14/2013 Colonoscopy Discontinued 05/26/2021, 05/11, 10/16/2012 Colorectal Cancer Screening Discontinued CT Colonography Discontinued FIT-DNA Discontinued FIT Discontinued FOBT Discontinued Sigmoidoscopy Discontinued Procedures Procedure Name Priority Date/Time Associated Diagnosis Comments COLONOSCOPY Routine 10/16/2012 12:00 PM EST from Last 3 Months or Most Recently Relevant to Health Maintenance Results * Colonoscopy (10/16/2012 12:00 PM EST) Anatomical Region Laterality Modality Endoscopy 10/16/2012 12:0 0 PM EST Narrative 10/16/2012 12:00 PM EST PERFORMED AT [facility] LOCATION:[id number] Normal Procedure Note CONVERSION, GENERIC - 01/25/2023 PERFORMED AT [facility] LOCATION:[id number] Normal us Yunior Brower MD ENDOSCOPY PROCEDURE ORDERABLES Final Result from Last 3 Months or Most Recently Relevant to Health Maintenance Insurance [facility] [facility] MEDICARE ADVANTAGE Care Teams Floral Decorator Relationship Specialty Start Date End Date lAvaro Harp MD PCP - General Family Medicine 01/09/24 Elio Sesay DO [address] [place] [address] Referring Physician Neurology 07/14/24
--- OUTSIDE RECORDS SUMMARY | 2025-05-19 07:08 | XMS_ITS | CCD ---
Author Organization [facility] CliniSymn Care Team Providers Care Filters Assembler Name Role Phone PHYSICIAN, DEFAULT Admitting Unavailable [...] ZIEBER, DR DANIEL Erazo Consulting Unavailable CHRISTIANO MORALSE Consulting Unavailable HOY ., DR BLANKENSHIP Admmilton [...] VANESSA Consulting Unavailblane ELAINE, RAVEN Consulting Unavailable LEA, NATALIIA Consulting [...] DR BLANKENSHIP Attending Unavailable HOY ., DR BLANKESNHIP Consulting Unavailable HOY ., DR BLANKENSHIP Primary [...] MD Ben Sanchez Attending Provider MD Krzysztof Thompson Primary Care Provider [phone] Krzysztof Thompson MD Primary Care Provider [phone] Raven Sesay DO Unavailable [phone] KRZYSZTOF THOMPSON Primary Care Unavailable FREEMAN [...] Unavailable Krzysztof Thompson MD Primary Care Provider [phone] Krzysztof Thompson MD Primary Care Provider [phone] MARGIE THOMPSONLAS M Referring Unavailable HOY, KRZYSZTOF M Primary Care Unavailable HOY, KRZYSZTOF M Referring Unavailable HOY, KRZYSZTOF M Primary Care Unavailable KAITLIN MACDONALD Attending Unavailable HOY, KRZYSZTOF M Referring Unavailable HOY, KRZYSZTOF M Primary Care Unavailable KAITLIN MACDONALD Attending Unavailable HOY, KRZYSZTOF M Referring Unavailable HOY, KRZYSZTOF M Primary Care Unavailable Krzysztof Thompson MD Primary Care Provider [phone] Vasyl Calvert MD Attending Provider [phone] Rickie Saucedo MD Attending Provider Vasyl Calvert MD Referring Provider Yael Atwood MD Attending UnavailYael Riggs MD Attending UnavailRickie Feliciano MD Attending Provider [phone] Krzysztof Thompson MD Attending Provider [phone] Krzysztof Thompson Primary Care Unavailable Vasyl Calvert Admitting Unavailable Vasyl Calvert Attending Unavailable Rickie Saucedo Attending Unavailable Krzysztof Thompson Primary Care Unavailable Rickie Saucedo Admitting Unavailable Rickie Saucedo Attending Unavailable Krzysztof Thompson Primary Care Unavailable Rickie Saucedo Admitting Unavailable Krzysztof Thompson Admitting Unavailable Krzysztof Thompson Attending Unavailable Allergies Allergy Classification Reported Allergen(s) Allergy Type Date of Onset Reaction(s) Facility (17 sources) Morphine; Translations: [MORPHINE] Drug Allergy 7 Vomiting [facility] Repository (7 sources) NSAIDs; Translations: [NSAIDS (NON-STEROIDAL ANTI-INFLAMMATOR Y DRUG)] Drug allergy (disorder) 9 GI Bleeding [facility] Repository (1 source) Penicillin Drug Allergy 9 [facility] (1 source) predniSONE Drug Allergy 9 [facility] (2 sources) Iodinated Contrast- Oral and IV Dye Drug allergy (disorder) 5 [facility] Repository (20 sources) Penicillins; Translations: [PENICILLINS] Propensity to adverse reactions to drug (disorder) 5 Rash [facility] Repository (20 sources) IODINATED CONTRAST MEDIA; Translations: [IODINATED CONTRAST MEDIA] Propensity to adverse reactions to drug (disorder) 3 Anaphylaxis, Other (See Comments) [facility] Repository (1 source) levoFLOXacin Drug Allergy 3 [facility] Repository (1 source) meloxicam Drug Allergy 3 [facility] Repository (12 sources) NSAIDS (Non-Steroidal Anti-Inflamma; Translations: [NSAIDS (Non-Steroidal Anti-Inflamma] Propensity to adverse reactions 4 Stomach Ulcer [facility] Comment on above: pt has stomach ulcer (20 sources) Morphine Drug Allergy 8 Nausea And Vomiting, Vomiting [facility] (8 sources) Non-steroidal anti-inflammator y agent Propensity to adverse reactions 4 Rash [facility] (7 sources) Contrast media; Translations: [DYE] Propensity to adverse reactions to drug (disorder) 7 Swelling [facility] Repository (7 sources) MORPHOLINE ANALOGUES; Translations: [MORPHOLINE ANALOGUES] Propensity to adverse reactions to drug (disorder) 7 Vomiting [facility] Repository (3 sources) Non-steroidal anti-inflammator y agent Propensity to adverse reactions to drug 4 GI Bleeding [facility] (1 source) Morphine Drug Allergy 5 [facility] Repository Medications Current Medications Medication Drug Class(es) [...] take 1 tablet by mouth once daily clopidogrel 75 mg oral tablet (20 sources) P2Y12 Platelet Inhibitor Start: 01-28-2024 take 1 tablet by mouth once daily in the morning Fluticasone-Umeclid in-Vilanter (8 sources) Start: 02-19-2025 Fluticasone-Umeclid in-Vilanter (Trelegy Ellipta) [...] take 1 tablet by mouth twice daily Start: 03-27-2024 take 1 tablet by lizeth th in the morning metoprolol tartrate (LOPRESSOR) 50 mg tablet Take 1 tablet (50 mg total) by mouth in the morning. 03/27/2024 Active Start: 03-27-2024 metoprolol tar trate (Lopressor) 25 MG tablet 03/27/2024 Active pantoprazole 40 mg delayed release oral tablet (20 sources) Proton Pump Inhibitor Start: 01-28-2024 End: 02-19-2024 salmon calcitonin 200 unt/actuat nasal spray (16 [...] Start: 02-19-2024 take 1 tablet by lizeth th twice daily Start: 01-28-2024 End: 02-19-2024 take 1 tablet by mouth four times daily Sucralfate 1 gram tablet Discontinued 1 GM PO Four times daily January 28, 2024 12:00am February 19, 2024 9:15am tiZANidine 2 mg oral capsule (8 sources) Central alpha-2 Adrenergic Agonist Start: 03-11-2025 take 1 capsule by mouth twice daily as needed Completed/Discontinued Medications Medication Drug Class(es) Dates Sig [...] clinician) cetirizine hydrochloride 10 mg oral tablet (11 sources) Histamine-1 Receptor Antagonist Start: 01-28-2024 End: [...] solution Discontinued 30 ML PO Twice daily 1799February 19, 2024 9:26am August 12, 2024 12:13pm [...] This Medication) linaclotide 0.145 mg oral capsule (16 sources) Guanylate Cyclase-C Agonist Start: 08-13-2024 End: [...] by another clinician) Sod Picosulf-Mag Ox-Citric Ac (10 sources) Start: 02-19-2024 End: 08-12-2024 take 1 [...] Date Documented Da te Episodic/Chronic Abdominal hernia (16 sources) Diaphragmatic hernia without obstruction or gangrene; [...] Coronary atherosclerosis; Translations: [Atherosclerotic heart disease of paimiut coronary artery without angina pectoris] Onset: 02-11-2010 [...] Onset: 10-25-2022 Episodic Gastroduodenal ulcer (except hemorrhage) (6 sources) Gastric ulcer; Translations: [Gastric ulcer, unspecified as acute or chronic, without hemorrhage or perforation] 04-24-2025 Chronic Gastrointestinal hemorrhage (10 sources) Rectal hemorrhage; Translations: [Gastrointestinal hemorrhage] Onset: [...] Onset: 07-29-2013 01-09-2024 Chronic Other acquired deformities (20 sources) Lumbar spondylolisthesis; Translations: [Spondylolisthesis, lumbar region] 02-19-2025 Episodic Other aftercare (2 sources) 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; Translations: [CARE HOME (CURRENT) USE OF ASPIRIN] Onset: 11-19-2018 Episodic Other aftercare (1 source) Other care home (current) drug therapy; Translations: [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 THERAPY] Onset: 01-17-2023 Episodic Other [...] hand] 08-11-2024 Episodic Other connective tissue disease (20 sources) Muscle pain; Translations: [Myalgia, unspecified site] 03-11-2025 Episodic Other fractures (4 sources) Fracture of multiple pubic rami; Translations: [Other specified fracture of right pubis, initial encounter for closed fracture] 06-17-2024 Episodic Other gastrointestinal disorders (10 sources) Irritable bowel syndrome; Translations: [Irritable bowel syndrome without diarrhea] 02-19-2024 Chronic Other gastrointestinal disorders (2 sources) Irritable bowel syndrome without diarrhea; Translations: [Irritable bowel syndrome] 02-19-2024 Chronic Other gastrointestinal disorders (8 sources) Irritable bowel syndrome characterized by constipation; [...] 02-11-2010 05-24-2023 Chronic Other nervous system disorders (20 sources) Chronic pain; Translations: [Other chronic pain] [...] Onset: 06-13-2024 Episodic Other non-traumatic joint disorders (13 sources) Pain in right shoulder; Translations: [Right shoulder pain] Onset: 04-02-2025 04-02-2025 Episodic Other screening for suspected conditions (not mental disorders or infectious disease) (18 sources) Abnormal result of other cardiovascular function [...] UNSPECIFIED] Onset: 10-25-2022 Episodic Residual codes; unclassified (6 sources) Postmenopausal state; Translations: [Asymptomatic menopausal state] [...] Test Name Value Interpretation Reference Range Facility Urine Cultureon 05-13-2025 Bacteria identified Cx Nom (U) ORGANISM: Escherichia coli (O:ESCCOL) [place] Count 75,000 Aerobic RAIZA Charge (NMIC56) ----- SUSCEPTIBILITY ---- ORGANISM: O:ESCCOL ANTIBIOTIC INTERPRETATION RAIZA Amikacin S <16 Amoxacillin/K Clavulanate S <8 Ampicillin S <8 Ampicillin/Sulbactam S <4 Aztreonam S <4 Cefazolin S <2 Cefepime S <2 Ceftazidime S <1 Ceftazidime/Avibacta m S <4 Ceftolozane/Tazobact am S <2 Ceftriaxone S <1 Cefuroxime S <4 Ciprofloxacin S <0.25 Ertapenem S <0.5 Gentamicin S <2 Levofloxacin S <0.5 Meropenem S <1 Meropenem/Vaborbacta m S <2 Nitrofurantoin S <32 Piperacillin/Tazobac curtis S <8 Tetracycline S <4 Tigecycline S <2 Tobramycin S <2 Trimethoprim/Sulfame thoxazole S <0.5 S = SUSCEPTIBLE I = INTERMEDIATE R = RESISTANT BLANK = DATA NOT AVAILABLE, OR DRUG NOT ADVISABLE OR TESTED R* = RESISTANCE DUE TO EXTENDED SPECTRUM BETA-LACTAMASES ESBL = EXTENDED SPECTRUM BETA-LACTAMASE TFG = THYMIDINE-DEPENDENT STRAIN COSMO = BETA-LACTAMASE POSITIVE IB = INDUCIBLE BETA-LACTAMASE. APPEARS IN PLACE OF 'S' WITH SPECIES KNOWN TO POSSESS INDUCIBLE BETA-LACTAMASES. POTENTIALLY THEY MAY BECOME RESISTANT TO ALL B-LACTAM DRUGS. PERFORMED BY: [place] [address] WORKER ARMINDA JUAN M.D. Normal [facility] Comment on above: Performed By: #### C UU #### [address] X-ray reportOrdered By: Jose Luna on 04-02-2025 Study report [facility] [address] [place] [address] XRay Report Signed Patient: Sheila Mac MR#: [id number] : 1950 Acct:[id number] Age/Sex: 74 / F ADM Date: 5 Loc: [facility] Room: Type: [facility] Attending Dr: Rickie Saucedo MD Copies to: [...] Luna M.D. 04/02/2025 6:13 PM Dictation Location: RADIO-PC-20 Transcribed By: LAVON 04/02/251812 Dictated By: Elian Luna DO 04/02/251811 Signed By: 04/02/25 181 [facility] XR shoulder RT min 2V*on XR shoulder RT min 2V* [facility] [place] [address] XRay Report Signed Patient: Sheila Mac MR#: [id number] 1859 : 1950 Acct:[id number] Age/Sex: 74 / F ADM Date: 04/02/25 Loc: [facility] Room: Type: [facility] Attending Dr: Rickie Saucedo MD Copies to: [...] Luna M.D. 04/02/2025 6:13 PM Dictation Location: RADIO-PC-20 Transcribed By: LAVON 04/02/251812 Dictated By: Elian Luna DO 04/02/251811 Signed By: 04/02/251812 Normal [facility] X-ray reportOrdered By: Lynn Fields on 03-11-2025 Study report [facility] [place] [address] XRay Report Signed Patient: Sheila Mac MR#: [id number] : 1950 Acct:[id number] Age/Sex: 74 / F ADM Date: 07/02/2 5 Loc: [facility] Room: Type: [facility] CLI Attending Dr: Rickie Saucedo MD Copies [...] Fields M.D. 03/11/2025 12:01 PM Dictation Location: [place] [address] Transcribed By: [facility] 03/11/25 1201 Dictated By: Ling Fields MD 03/11/25 1158 Signed By: 03/11/25 1201 [facility] Work Phone: XR thoracic spine 2Von 03-11 XR thoracic spine 2V [facility] [address] [place] [address] XRay Report Signed Patient: Sheila Mac MR#: [id number] 1859 : 1950 Acct:[id number] Age/Sex: 74 / F ADM Date: 03/11/25 Loc: [facility] Room: Type: [facility] CLI Attending Dr: Rickie Saucedo MD Copies [...] Fields M.D. 03/11/2025 12:01 PM Dictation Location: [place] [address] Transcribed By: [facility] 03/11/25 1201 Dictated By: Ling Fields MD 03/11/25 1158 Signed By: 03/11/25 1201 Normal [facility] XR cerv spine AP/LAT/FLX/EXT on 02-26-2025 XR cerv spine AP/LAT/FLX/EXT [facility] [place] [address] XRay Report Signed Patient: Sheila Mac MR#: [id number] 1859 : 1950 Acct:[id number] Age/Sex: 74 / F ADM Date: 02/26/25 Loc: [place] Room: Type: [facility] Attending Dr: Vasyl Calvert MD Copies to: Vasyl Calvert MD Ordering Provider: Vasyl Calvert MD Date of Service: 02/26/25 XR/XR cerv [...] level. Extensive facet generation. Impression dictated by: Elain Luna M.D. 02/26/2025 12:52 PM Dictation Location: RADIO-PC-23 Transcribed By: LAVON 02/26/25 1252 Dictated By: Elian Luna DO 02/26/25 1249 Signed By: 02/26/25 1252 Normal [facility] XR lumbar spine 6V w bending on 02-26-2025 XR lumbar spine 6V w bending [facility] [place] [address] [place] [address] XRay Report Signed Patient: Sheila Mac MR#: [id number] 1859 : 1950 Acct:[id number] Age/Sex: 74 / F ADM Date: 02/26/25 Loc: [place] Room: Type: [facility] Attending Dr: Vasyl Calvert MD Copies to: Vasyl Calvert MD Ordering Provider: Vasyl Calvert MD Date of Service: 02/26/25 XR/XR lumbar [...] 02/26/25 1411 Signed By: 02/26/25 1414 Normal [facility] Surgical Pathologyon 11-18-2 024 Surgical Pathology Normal [facility] Comment on above: Result Comment: [facility] [address] [place] [address] Surgical Pathology Consultation Patient Name:SHEILA MAC ADOB:1950 (Age: 74)Gender:FTaken:4Reported:4Physician(s):Kimberly Latham MD ([phone])Copy To: Rec. #:[id number]: #[id number] Final Pathologic Diagnosis 1. Duodenum biopsy first portion: Duodenal mucosa with no significant histopathologic changes. No active inflammation, celiac disease, parasites, granuloma or atypia. 2. Antrum biopsy: Gastric antral mucosa with no significant histopathologic changes. No intestinal metaplasia or dysplasia. No Helicobacter pylori organisms are seen on routine sections. Report Electronically Signed Out wa/07/31/2024Rodriguez Vargas MD Interpretation performed at [facility], [address] [place] [address], License number: [id number]. Clinical History Vomiting, gastroesophageal reflux, dysphagia Gross Description 1. Received in formalin labeled ASLINGER, #1: Duodenum is a single hathaway bit of soft tissue, 0.2 cm in greatest dimension. Filtered and submitted in a single cassette. (1, ns, [id number], m7) MG 2. Received in formalin labeled ASLINGER, #2: Antrum is a single hathaway bit of soft tissue, 0.3 cm in greatest dimension. Filtered and submitted in a single cassette. (1, ns, [id number], m7) MG [facility]/07/28/2024GR Specimen(s) Received 1: Duodenum biopsy first portion 2: Antrum biopsy Fee Codes(s): 1; 78448 2; 21714 EMG 1 Extremeityon 4 C8 radiculopathy on the left, moderate [facility] NVC 5-6 Nerveson 07-17-2024 C8 radiculopathy on the left, moderate [facility] XR HIP LT 2-3 VIEWS [...] Muller MD on 06/13/2024 10:24 PM Normal [facility] XR SPINE LUMBAR 2 OR 3 [...] [place] MD on 06/13/2024 10:20 PM Normal [facility] MR HIP RIGHT WO IV CONTRASTo [...] of the right hip Hemal Sheth D.O. [facility] Radiology Study observation (narrative) [facility] ColonoscopyOrdered By: Kera George on 03-26-2024 [facility] US AYESHA DOP LEG LTon 01-16-20 23 [...] by: DANIEL PINEDA Date: 2023-01-15 08:25 Normal [facility] XR ANKLE LT MIN 3 [...] GONZALEZ PATEL Date: 2023-01-15 07:28 Normal [facility] VITAMIN B1 (THIAMINE)on Vit. B1, Whole Blood 118.1 nmol/L Normal 66.5-200.0 [facility] Comment on above: Performed By: #### C BC #### [facility] [address] [place] [address] Dr. Ekta Funk BNPon 01-10-2023 Natriuretic peptide B (Bld) [Mass/Vol] 980.0 pg/mL Critically high <=900.0 [facility] Comment on above: Performed By: #### C VDTBH #### [facility] [address] [place] [address] Dr. Ekta Funk CBC AUTO DIFFon 01-10-2023 BASO # 0.1 103/ul Normal 0.0-0.1 [facility] Comment on above: Performed By: #### C MP #### [facility] [address] [place] [address] Dr. Ekta Funk Basophils/100 WBC (Bld) 1.0 % Normal 0.2-2.0 [facility] Comment on above: Performed By: #### C MP #### [facility] [address] [place] [address] Dr. Ekta Funk EO # 0.4 103/ul Normal 0.0-0.7 [facility] Comment on above: Performed By: #### C MP #### [facility] [address] [place] [address] Dr. Ekta Funk Eosinophils/100 WBC (Bld) 3.7 % Normal 0.9-7.0 [facility] Comment on above: Performed By: #### C MP #### [facility] [address] [place] [address] Dr. Ekta Funk Erythrocyte distribution width (RBC) [Ratio] 13.2 % Normal 11.0-15.0 [facility] Comment on above: Performed By: #### C MP #### [facility] [address] [place] [address] Dr. Ekta Funk Hematocrit (Bld) [Volume fraction] 35.1 % Critically low 36.0-48.0 [facility] Comment on above: Performed By: #### C MP #### [facility] [address] [place] [address] Dr. Ekta Funk Hemoglobin (Bld) [Mass/Vol] 11.3 g/dL Critically low 12.0-16.0 [facility] Comment on above: Performed By: #### C MP #### [facility] [address] [place] [address] Dr. Ekta Funk IG # 0.04 10e3/ul Critically high 0.00-0.03 [facility] Comment on above: Performed By: #### C MP #### [facility] [address] [place] [address] Dr. Ekta Funk IG % 0.4 % Normal 0.0-0.5 [facility] Comment on above: Performed By: #### C MP #### [facility] [address] [place] [address] Dr. Ekta Funk LYMPH # 2.0 103/ul Normal 1.2-3.8 [facility] Comment on above: Performed By: #### C MP #### [facility] [address] [place] [address] Dr. Ekta Funk Lymphocytes/100 WBC (Bld) 20.8 % Normal 20.5-60.0 [facility] Comment on above: Performed By: #### C MP #### [facility] [address] [place] [address] Dr. Ekta Funk MANUAL DIFF REQ NO Normal [facility] Comment on above: Performed By: #### C MP #### [facility] [address] [place] [address] Dr. Ekta Funk MCH (RBC) [Entitic mass] 32.3 pg Normal 26.7-34.0 [facility] Comment on above: Performed By: #### C MP #### [facility] [address] [place] [address] Dr. Ekta Funk MCHC (RBC) [Mass/Vol] 32.2 g/dL Normal 29.9-35.2 [facility] Comment on above: Performed By: #### C MP #### [facility] [address] [place] [address] Dr. Ekta Funk MCV (RBC) [Entitic vol] 100.3 fL Critically high 81.0-99.0 [facility] Comment on above: Performed By: #### C MP #### [facility] [address] [place] [address] Dr. Ekta Funk MONO # 0.8 103/ul Normal 0.3-0.8 [facility] Comment on above: Performed By: #### C MP #### [facility] [address] [place] [address] Dr. Ekta Funk Monocytes/100 WBC (Bld) 7.9 % Normal 1.7-12.0 [facility] Comment on above: Performed By: #### C MP #### [facility] [address] [place] [address] Dr. Ekta Funk NEUT # 6.4 103/ul Normal 1.4-6.5 [facility] Comment on above: Performed By: #### C MP #### [facility] [address] [place] [address] Dr. Ekta Funk Neutrophils/100 WBC (Bld) 66.2 % Normal 43.0-75.0 [facility] Comment on above: Performed By: #### C MP #### [facility] [address] [place] [address] Dr. Ekta Funk Platelet mean volume (Bld) [Entitic vol] 9.6 fL Normal 9.5-13.5 [facility] Comment on above: Performed By: #### C MP #### [facility] [address] [place] [address] [address] Ekta Funk PLT 255 103/ul Normal 150-450 [facility] Comment on above: Performed By: #### C MP #### [facility] [address] [place] [address] [address] Ekta Funk RBC 3.50 106/ul Critically low 4.20-5.40 [facility] Comment on above: Performed By: #### C MP #### [facility] [address] [place] [address] [address] Ekta Funk WBC 9.7 103/ul Normal 4.0-11.0 [facility] Comment on above: Performed By: #### C MP #### [facility] [address] [place] [address] Dr. Ekta Funk CRPon 01-10-2023 CRP [Mass/Vol] mg/L Normal <=1.0 [facility] Comment on above: Performed By: #### C BC #### [facility] [address] [place] [address] Dr. Ekta Funk FREE THYROXINE INDEX T7on FTI 2.62 Normal 1.30-4.50 [facility] Comment on above: Performed By: #### C BC #### [facility] [address] [place] [address] Dr. Ekta Funk T3U 32.0 % Normal 30.0-39.0 [facility] Comment on above: Performed By: #### C BC #### [facility] [address] [place] [address] [address] Ekta Funk T4 [Mass/Vol] 8.20 ug/dL Normal 4.80-13.90 [facility] Comment on above: Performed By: #### C BC #### [facility] [address] [place] [address] Dr. Ekta Funk IRONon 01-10-2023 Iron [Mass/Vol] 61.0 ug/dL Normal 50.0-170.0 [facility] Comment on above: Performed By: #### B 12FOL, VITAD, IRON #### [facility] [address] [place] [address] Dr. Ekta Funk PROF 14(COMP METB)on 023 Albumin [Mass/Vol] 2.9 g/dL Critically low 3.4-5.0 [facility] Comment on above: Performed By: #### C VDTBH #### [facility] [address] [place] [address] Dr. Ekta Funk Albumin/Globulin [Mass ratio] 0.6 {ratio} Normal [facility] Comment on above: Performed By: #### C VDTBH #### [facility] [address] [place] [address] Dr. Ekta Funk ALP [Catalytic activity/Vol] 101 U/L Normal 46-116 [facility] Comment on above: Performed By: #### C VDTBH #### [facility] [address] [place] [address] Dr. Ekta Funk ALT [Catalytic activity/Vol] 16 U/L Normal 14-59 [facility] Comment on above: Performed By: #### C VDTBH #### [facility] [address] [place] [address] Dr. Ekta Funk Anion gap [Moles/Vol] 14.6 mmol/L Normal [facility] Comment on above: Performed By: #### C VDTBH #### [facility] [address] [place] [address] Dr. Ekta Funk AST [Catalytic activity/Vol] 15 U/L Normal 15-37 [facility] Comment on above: Performed By: #### C VDTBH #### [facility] [address] [place] [address] Dr. Ekta Funk Bilirubin [Mass/Vol] 0.4 mg/dL Normal 0.2-1.0 [facility] Comment on above: Performed By: #### C VDTBH #### [facility] [address] [place] [address] Dr. Ekta Funk Calcium [Mass/Vol] 9.2 mg/dL Normal 8.5-10.[address] [facility] Comment on above: Performed By: #### C VDTBH #### [facility] [address] [address] [address] Ekta Funk Chloride [Moles/Vol] 107 mmol/L Normal 98-107 [facility] Comment on above: Performed By: #### C VDTBH #### [facility] [address] [address] [address] Ekta Funk CO2 [Moles/Vol] 24.4 mmol/L Normal 21.0-32.0 [facility] Comment on above: Performed By: #### C VDTBH #### [facility] [address] [place] [address] Dr. Ekta Funk Creatinine [Mass/Vol] 2.02 mg/dL Critically high 0.55-1.02 [facility] Comment on above: Performed By: #### C VDTBH #### [facility] [address] [place] [address] Dr. Ekta Funk EGFR-AF [place] 29 mL/min/1.73m2 Critically low >=60 [facility] Comment on above: Performed By: #### C VDTBH #### [facility] [address] [place] [address] Dr. Ekta Funk EGFR-NON AF [place] 24 mL/min/1.73m2 Critically low >=60 [facility] Comment on above: Performed By: #### C VDTBH #### [facility] [address] [place] [address] Dr. Ekta Funk Globulin (S) [Mass/Vol] 4.5 g/dL Normal [facility] Comment on above: Performed By: #### C VDTBH #### [facility] [address] [place] [address] Dr. Ekta Funk Glucose [Mass/Vol] 103 mg/dL Normal 74-[address] [facility] Comment on above: Performed By: #### C VDTBH #### [facility] [address] [place], [place] [id number] Dr. Ekta Funk Potassium [Moles/Vol] 5.0 mmol/L Normal 3.5-5.1 [facility] Comment on above: Performed By: #### C VDTBH #### [facility] [address] [place] [address] Dr. Ekta Funk Protein [Mass/Vol] 7.4 g/dL Normal 6.4-8.2 [facility] Comment on above: Performed By: #### C VDTBH #### [facility] [address] [place] [address] Dr. Ekta Funk Sodium [Moles/Vol] 141 mmol/L Normal 136-145 [facility] Comment on above: Performed By: #### C VDTBH #### [facility] [address] [place] [address] Dr. Ekta Funk Urea nitrogen [Mass/Vol] 23.0 mg/dL Critically high 7.0-18.0 [facility] Comment on above: Performed By: #### C VDTBH #### [facility] [address] [place] [address] Dr. Ekta Funk Urea nitrogen/Creatinine [Mass ratio] 11.4 mg/mg Normal [facility] Comment on above: Performed By: #### C VDTBH #### [facility] [address] [place] [address] Dr. Ekta Funk TSHon 01-10-2023 TSH 1.793 uIU/mL Normal 0.358-3.740 [facility] Comment on above: Performed By: #### C VDTBH #### [facility] [address] [place] [address] Dr. Ekta Funk VIT B12 AND FOLATEon 023 Cobalamin (Vitamin B12) [Mass/Vol] 175.0 pg/mL Critically low 193.0-986.0 [facility] Comment on above: Performed By: #### B 12FOL, VITAD, IRON #### [facility] [address] [place] [address] Dr. Ekta Funk FOLATE 10.30 ng/mL Normal 8.60-58.90 [facility] Comment on above: Performed By: #### B 12FOL, VITAD, IRON #### [facility] [address] [place] [address] Dr. Ekta Funk VITAMIN D 25 OHon 01-10-2023 VIT D 25-OH 24.0 ng/mL Normal [facility] Comment on above: Performed By: #### B 12FOL, VITAD, IRON #### [facility] [address] [address] [address] Ekta Funk VIT D RANGES SEE BELOW Normal [facility] Comment on above: Result Comment: <20 ng/mL Vit D deficient 20 - <30 ng/mL Vit D insufficient 30 - 100 ng/mL Vit D sufficient >100 ng/mL Potential Toxicity Performed By: #### B 12FOL, VITAD, IRON #### [facility] [address] [address] [address] Ekta Funk Office Visiton 12-15-2022 Follow-up visit [id number] Sheila Mac 1950 F Date Provider Department Center 12/15/2022 [id number] RIVERA [facility] No family history on file Level of Service:36928 DC OFFICE/OUTPATIENT ESTABLISHED MOD MDM 30-39 MIN Reason for Visit and Comments: Follow-up [177492] - Is here f/u stress test pt states she had Bruises all over both legs symptoms stated a week ago also stated legs are swollen and burning Normal [facility] NM STRESS/REST MULTIon 12-05 NM STRESS/REST MULTI Patient: SHEILA MAC Exam Date: 12/05/2022 : 1950 Gender:F Ordering : DR KRZYSZTOF THOMPSON . Admission #: [id number] Family : Order #: [id number] CLICK HERE TO VIEW EXAM RADIOLOGY REPORT [...] medicine myocardial perfusion scan. Dictated by: Daniel Pindea M.D. on 12/06/2022 at 07:25 Approved by: Daniel Pineda M.D. on 12/06/2022 at 07:26 Normal [facility] ECHOCARDIO M/2D COMPLETEon 0 11-27-2022 ECHOCARDIO M/2D COMPLETE Patient: SHEILA MAC Exam Date: 11/27/2022 : 1950 Gender:F Ordering : DR KRZYSZTOF THOMPSON . Admission #: [id number] Family : Order #: [id number] CLICK HERE TO VIEW EXAM ECHOCARDIOGRAM REPORT [...] M.D. on 11/27/2022 at 14:39 Normal [facility] CBC AUTO DIFFon 11-26-2022 BASO # 0.0 103/ul Normal 0.0-0.1 [facility] Comment on above: Performed By: #### I NSULIN #### [facility] [address] [place] [address] Dr. Ekta Funk Basophils/100 WBC (Bld) 0.6 % Normal 0.2-2.0 [facility] Comment on above: Performed By: #### I NSULIN #### [facility] [address] [place] [address] Dr. Ekta Funk EO # 0.3 103/ul Normal 0.0-0.7 [facility] Comment on above: Performed By: #### I NSULIN #### [facility] [address] [place] [address] Dr. Ekta Funk Eosinophils/100 WBC (Bld) 4.8 % Normal 0.9-7.0 [facility] Comment on above: Performed By: #### I NSULIN #### [facility] [address] [place] [address] Dr. Ekta Funk Erythrocyte distribution width (RBC) [Ratio] 13.3 % Normal 11.0-15.0 [facility] Comment on above: Performed By: #### I NSULIN #### [facility] [address] [place] [address] Dr. Ekta Funk Hematocrit (Bld) [Volume fraction] 29.1 % Critically low 36.0-48.0 [facility] Comment on above: Performed By: #### I NSULIN #### [facility] [address] [place] [address] Dr. Ekta Funk Hemoglobin (Bld) [Mass/Vol] 9.5 g/dL Critically low 12.0-16.0 [facility] Comment on above: Performed By: #### I NSULIN #### [facility] [address] [place] [address] Dr. Ekta Funk IG # 0.07 10e3/ul Critically high 0.00-0.03 [facility] Comment on above: Performed By: #### I NSULIN #### [facility] [address] [place] [address] Dr. Ekta Funk IG % 1.0 % Critically high 0.0-0.5 [facility] Comment on above: Performed By: #### I NSULIN #### [facility] [address] [place] [address] Dr. Ekta Funk LYMPH # 1.2 103/ul Normal 1.2-3.8 [facility] Comment on above: Performed By: #### I NSULIN #### [facility] [address] [place] [address] Dr. Ekta Funk Lymphocytes/100 WBC (Bld) 17.2 % Critically low 20.5-60.0 [facility] Comment on above: Performed By: #### I NSULIN #### [facility] [address] [place] [address] Dr. Ekta Funk MANUAL DIFF REQ NO Normal [facility] Comment on above: Performed By: #### I NSULIN #### [facility] [address] [place] [address] Dr. Ekta Funk MCH (RBC) [Entitic mass] 31.7 pg Normal 26.7-34.0 [facility] Comment on above: Performed By: #### I NSULIN #### [facility] [address] [place] [address] Dr. Ekta Funk MCHC (RBC) [Mass/Vol] 32.6 g/dL Normal 29.9-35.2 [facility] Comment on above: Performed By: #### I NSULIN #### [facility] [address] [place] [address] Dr. Ekta Funk MCV (RBC) [Entitic vol] 97.0 fL Normal 81.0-99.0 [facility] Comment on above: Performed By: #### I NSULIN #### [facility] [address] [place] [address] Dr. Ekta Funk MONO # 0.8 103/ul Normal 0.3-0.8 [facility] Comment on above: Performed By: #### I NSULIN #### [facility] [address] [place] [address] Dr. Ekta Funk Monocytes/100 WBC (Bld) 11.1 % Normal 1.7-12.0 [facility] Comment on above: Performed By: #### I NSULIN #### [facility] [address] [place] [address] Dr. Ekta Funk NEUT # 4.5 103/ul Normal 1.4-6.5 [facility] Comment on above: Performed By: #### I NSULIN #### [facility] [address] [place] [address] Dr. Ekta Funk Neutrophils/100 WBC (Bld) 65.3 % Normal 43.0-75.0 [facility] Comment on above: Performed By: #### I NSULIN #### [facility] [address] [place] [address] Dr. Ekta Funk Platelet mean volume (Bld) [Entitic vol] 9.4 fL Critically low 9.5-13.5 [facility] Comment on above: Performed By: #### I NSULIN #### [facility] [address] [place] [address] Dr. Ekta Funk PLT 263 103/ul Normal 150-450 [facility] Comment on above: Performed By: #### I NSULIN #### [facility] [address] [place] [address] Dr. Ekta Funk RBC 3.00 106/ul Critically low 4.20-5.40 [facility] Comment on above: Performed By: #### I NSULIN #### [facility] [address] [place] [address] Dr. Ekta Funk WBC 6.9 103/ul Normal 4.0-11.0 [facility] Comment on above: Performed By: #### I NSULIN #### [facility] [address] [place] [address] Dr. Ekta Funk PROF 14(COMP METB)on 023 Albumin [Mass/Vol] 2.2 g/dL Critically low 3.4-5.0 [facility] Comment on above: Performed By: #### C MP #### [facility] [address] [place] [address] Dr. Ekta Funk Albumin/Globulin [Mass ratio] 0.6 {ratio} Normal [facility] Comment on above: Performed By: #### C MP #### [facility] [address] [place] [address] Dr. Ekta Funk ALP [Catalytic activity/Vol] 82 U/L Normal 46-116 [facility] Comment on above: Performed By: #### C MP #### [facility] [address] [place] [address] Dr. Ekta Funk ALT [Catalytic activity/Vol] 13 U/L Critically low 14-59 [facility] Comment on above: Performed By: #### C MP #### [facility] [address] [place] [address] Dr. Ekta Funk Anion gap [Moles/Vol] 14.0 mmol/L Normal [facility] Comment on above: Performed By: #### C MP #### [facility] [address] [place] [address] Dr. Ekta Funk AST [Catalytic activity/Vol] 18 U/L Normal 15-37 [facility] Comment on above: Performed By: #### C MP #### [facility] [address] [place] [address] Dr. Ekta Funk Bilirubin [Mass/Vol] 0.4 mg/dL Normal 0.2-1.0 [facility] Comment on above: Performed By: #### C MP #### [facility] [address] [place] [address] Dr. Ekta Funk Calcium [Mass/Vol] 8.6 mg/dL Normal 8.5-10.1 [facility] Comment on above: Performed By: #### C MP #### [facility] [address] [address] [address] Ekta Funk Chloride [Moles/Vol] 108 mmol/L Critically high 98-107 [facility] Comment on above: Performed By: #### C MP #### [facility] [address] [place] [address] Dr. Ekta Funk CO2 [Moles/Vol] 19.6 mmol/L Critically low 21.0-32.0 [facility] Comment on above: Performed By: #### C MP #### [facility] [address] [place] [address] Dr. Ekta Funk Creatinine [Mass/Vol] 1.70 mg/dL Critically high 0.55-1.02 [facility] Comment on above: Performed By: #### C MP #### [facility] [address] [place] [address] Dr. Ekta Funk EGFR-AF [place] 36 mL/min/1.73m2 Critically low >=60 [facility] Comment on above: Performed By: #### C MP #### [facility] [address] [place] [address] Dr. Ekta Funk EGFR-NON AF [place] 29 mL/min/1.73m2 Critically low >=60 [facility] Comment on above: Performed By: #### C MP #### [facility] [address] [place] [address] Dr. Ekta Funk Globulin (S) [Mass/Vol] 3.6 g/dL Normal [facility] Comment on above: Performed By: #### C MP #### [facility] [address] [place] [address] Dr. Ekta Funk Glucose [Mass/Vol] 103 mg/dL Normal 74-106 [facility] Comment on above: Performed By: #### C MP #### [facility] [address] [address] [address] Ekta Funk Potassium [Moles/Vol] 4.6 mmol/L Normal 3.5-5.1 [facility] Comment on above: Performed By: #### C MP #### [facility] [address] [address] [address] Ekta Funk Protein [Mass/Vol] 5.8 g/dL Critically low 6.4-8.2 [facility] Comment on above: Performed By: #### C MP #### [facility] [address] [place] [address] Dr. Ekta Funk Sodium [Moles/Vol] 137 mmol/L Normal 136-145 [facility] Comment on above: Performed By: #### C MP #### [facility] [address] [place] [address] Dr. Ekta Funk Urea nitrogen [Mass/Vol] 26.0 mg/dL Critically high 7.0-18.0 [facility] Comment on above: Performed By: #### C MP #### [facility] [address] [place] [address] Dr. Ekta Funk Urea nitrogen/Creatinine [Mass ratio] 15.3 mg/mg Normal [facility] Comment on above: Performed By: #### C MP #### [facility] [address] [place] [address] Dr. Ekta Funk CBC AUTO DIFFon 11-25-2022 BASO # 0.1 103/ul Normal 0.0-0.1 [facility] Comment on above: Performed By: #### C BC #### [facility] [address] [place] [address] Dr. Ekta Funk Basophils/100 WBC (Bld) 0.7 % Normal 0.2-2.0 [facility] Comment on above: Performed By: #### C BC #### [facility] [address] [place] [address] Dr. Ekta Funk EO # 0.3 103/ul Normal 0.0-0.7 [facility] Comment on above: Performed By: #### C BC #### [facility] [address] [address] [address] Ekta Funk Eosinophils/100 WBC (Bld) 3.4 % Normal 0.9-7.0 [facility] Comment on above: Performed By: #### C BC #### [facility] [address] [place] [address] Dr. Ekta Funk Erythrocyte distribution width (RBC) [Ratio] 13.6 % Normal 11.0-15.0 [facility] Comment on above: Performed By: #### C BC #### [facility] [address] [place] [address] Dr. Ekta Funk Hematocrit (Bld) [Volume fraction] 32.1 % Critically low 36.0-48.0 [facility] Comment on above: Performed By: #### C BC #### [facility] [address] [place] [address] Dr. Ekta Funk Hemoglobin (Bld) [Mass/Vol] 10.3 g/dL Critically low 12.0-16.0 [facility] Comment on above: Performed By: #### C BC #### [facility] [address] [place] [address] Dr. Ekta Funk IG # 0.08 10e3/ul Critically high 0.00-0.03 [facility] Comment on above: Performed By: #### C BC #### [facility] [address] [place] [address] Dr. Ekta Funk IG % 0.9 % Critically high 0.0-0.5 [facility] Comment on above: Performed By: #### C BC #### [facility] [address] [place] [address] Dr. Ekta Funk LYMPH # 0.9 103/ul Critically low 1.2-3.8 [facility] Comment on above: Performed By: #### C BC #### [facility] [address] [place] [address] Dr. Ekta Funk Lymphocytes/100 WBC (Bld) 10.7 % Critically low 20.5-60.0 [facility] Comment on above: Performed By: #### C BC #### [facility] [address] [place] [address] Dr. Ekta Funk MANUAL DIFF REQ NO Normal [facility] Comment on above: Performed By: #### C BC #### [facility] [address] [place] [address] Dr. Ekta Funk MCH (RBC) [Entitic mass] 32.2 pg Normal 26.7-34.0 [facility] Comment on above: Performed By: #### C BC #### [facility] [address] [place] [address] Dr. Ekta Funk MCHC (RBC) [Mass/Vol] 32.1 g/dL Normal 29.9-35.2 [facility] Comment on above: Performed By: #### C BC #### [facility] [address] [place] [address] Dr. Ekta Funk MCV (RBC) [Entitic vol] 100.3 fL Critically high 81.0-99.0 [facility] Comment on above: Performed By: #### C BC #### [facility] [address] [place] [address] Dr. Ekta Funk MONO # 0.9 103/ul Critically high 0.3-0.8 [facility] Comment on above: Performed By: #### C BC #### [facility] [address] [place] [address] Dr. Ekta Funk Monocytes/100 WBC (Bld) 9.9 % Normal 1.7-12.0 [facility] Comment on above: Performed By: #### C BC #### [facility] [address] [place] [address] Dr. Ekta Funk NEUT # 6.4 103/ul Normal 1.4-6.5 [facility] Comment on above: Performed By: #### C BC #### [facility] [address] [place] [address] Dr. Ekta Funk Neutrophils/100 WBC (Bld) 74.4 % Normal 43.0-75.0 [facility] Comment on above: Performed By: #### C BC #### [facility] [address] [place] [address] Dr. Ekta Funk Platelet mean volume (Bld) [Entitic vol] 9.5 fL Normal 9.5-13.5 [facility] Comment on above: Performed By: #### C BC #### [facility] [address] [place] [address] Dr. Ekta Funk PLT 267 103/ul Normal 150-450 [facility] Comment on above: Performed By: #### C BC #### [facility] [address] [place] [address] Dr. Ekta Funk RBC 3.20 106/ul Critically low 4.20-5.40 [facility] Comment on above: Performed By: #### C BC #### [facility] [address] [place] [address] Dr. Ekta Funk WBC 8.6 103/ul Normal 4.0-11.0 [facility] Comment on above: Performed By: #### C BC #### [facility] [address] [place] [address] Dr. Ekta Funk BASO # 0.1 103/ul Normal 0.0-0.1 [facility] Comment on above: Performed By: #### C MP #### [facility] [address] [place] [address] Dr. Ekta Funk Basophils/100 WBC (Bld) 0.7 % Normal 0.2-2.0 [facility] Comment on above: Performed By: #### C MP #### [facility] [address] [place] [address] Dr. Ekta Funk EO # 0.3 103/ul Normal 0.0-0.7 [facility] Comment on above: Performed By: #### C MP #### [facility] [address] [place] [address] Dr. Ekta Funk Eosinophils/100 WBC (Bld) 3.9 % Normal 0.9-7.0 [facility] Comment on above: Performed By: #### C MP #### [facility] [address] [address] [address] Ekta Funk Erythrocyte distribution width (RBC) [Ratio] 13.2 % Normal 11.0-15.0 [facility] Comment on above: Performed By: #### C MP #### [facility] [address] [address] [address] Ekta Funk Hematocrit (Bld) [Volume fraction] 28.0 % Critically low 36.0-48.0 [facility] Comment on above: Performed By: #### C MP #### [facility] [address] [place] [address] Dr. Ekta Funk Hemoglobin (Bld) [Mass/Vol] 9.3 g/dL Critically low 12.0-16.0 [facility] Comment on above: Performed By: #### C MP #### [facility] [address] [place] [address] Dr. Ekta Funk IG # 0.08 10e3/ul Critically high 0.00-0.03 [facility] Comment on above: Performed By: #### C MP #### [facility] [address] [address] [address] kEta Funk IG % 1.1 % Critically high 0.0-0.5 [facility] Comment on above: Performed By: #### C MP #### [facility] [address] [place] [address] Dr. Ekta Funk LYMPH # 0.9 103/ul Critically low 1.2-3.8 [facility] Comment on above: Performed By: #### C MP #### [facility] [address] [place] [address] Dr. Ekta Funk Lymphocytes/100 WBC (Bld) 12.1 % Critically low 20.5-60.0 [facility] Comment on above: Performed By: #### C MP #### [facility] [address] [place] [address] Dr. Ekta Funk MANUAL DIFF REQ NO Normal [facility] Comment on above: Performed By: #### C MP #### [facility] [address] [place] [address] Dr. Ekta Funk MCH (RBC) [Entitic mass] 32.0 pg Normal 26.7-34.0 [facility] Comment on above: Performed By: #### C MP #### [facility] [address] [place] [address] Dr. Ekta Funk MCHC (RBC) [Mass/Vol] 33.2 g/dL Normal 29.9-35.2 [facility] Comment on above: Performed By: #### C MP #### [facility] [address] [place] [address] Dr. Ekta Funk MCV (RBC) [Entitic vol] 96.2 fL Normal 81.0-99.0 [facility] Comment on above: Performed By: #### C MP #### [facility] [address] [place] [address] Dr. Ekta Funk MONO # 0.7 103/ul Normal 0.3-0.8 [facility] Comment on above: Performed By: #### C MP #### [facility] [address] [place] [address] Dr. Ekta Funk Monocytes/100 WBC (Bld) 9.8 % Normal 1.7-12.0 [facility] Comment on above: Performed By: #### C MP #### [facility] [address] [place] [address] Dr. Ekta Funk NEUT # 5.2 103/ul Normal 1.4-6.5 [facility] Comment on above: Performed By: #### C MP #### [facility] [address] [place] [address] Dr. Ekta Funk Neutrophils/100 WBC (Bld) 72.4 % Normal 43.0-75.0 [facility] Comment on above: Performed By: #### C MP #### [facility] [address] [place] [address] Dr. Ekta Funk Platelet mean volume (Bld) [Entitic vol] 9.4 fL Critically low 9.5-13.5 [facility] Comment on above: Performed By: #### C MP #### [facility] [address] [address] [address] Ekta Funk PLT 250 103/ul Normal 150-450 [facility] [facility] Comment on above: Performed By: #### C MP #### [facility] [address] [place] [address] Dr. Ekta Funk RBC 2.91 106/ul Critically low 4.20-5.40 [facility] Comment on above: Performed By: #### C MP #### [facility] [address] [place] [address] Dr. Ekta Funk WBC 7.2 103/ul Normal 4.0-11.0 [facility] Comment on above: Performed By: #### C MP #### [facility] [address] [place] [address] Dr. Ekta Funk PROF 14(COMP METB)on 023 Albumin [Mass/Vol] 2.1 g/dL Critically low 3.4-5.0 [facility] Comment on above: Performed By: #### C MP #### [facility] [address] [place] [address] Dr. Ekta Funk Albumin/Globulin [Mass ratio] 0.6 {ratio} Normal [facility] Comment on above: Performed By: #### C MP #### [facility] [address] [place] [address] Dr. Ekta Funk ALP [Catalytic activity/Vol] 68 U/L Normal 46-116 [facility] Comment on above: Performed By: #### C MP #### [facility] [address] [place] [address] Dr. Ekta Funk ALT [Catalytic activity/Vol] 14 U/L Normal 14-59 [facility] Comment on above: Performed By: #### C MP #### [facility] [address] [place] [address] Dr. Ekta Funk Anion gap [Moles/Vol] 12.9 mmol/L Normal [facility] Comment on above: Performed By: #### C MP #### [facility] [address] [place] [address] Dr. Ekta Funk AST [Catalytic activity/Vol] 14 U/L Critically low 15-37 [facility] Comment on above: Performed By: #### C MP #### [facility] [address] [address] [address] Ekta Funk Bilirubin [Mass/Vol] 0.3 mg/dL Normal 0.2-1.0 [facility] Comment on above: Performed By: #### C MP #### [facility] [address] [address] [address] Ekta Funk Calcium [Mass/Vol] 8.3 mg/dL Critically low 8.5-10.1 [facility] Comment on above: Performed By: #### C MP #### [facility] [address] [place] [address] Dr. Ekta Funk Chloride [Moles/Vol] 109 mmol/L Critically high 98-107 [facility] Comment on above: Performed By: #### C MP #### [facility] [address] [place] [address] Dr. Ekta Funk CO2 [Moles/Vol] 19.3 mmol/L Critically low 21.0-32.0 [facility] Comment on above: Performed By: #### C MP #### [facility] [address] [place] [address] Dr. Ekta Funk Creatinine [Mass/Vol] 1.54 mg/dL Critically high 0.55-1.02 [facility] Comment on above: Performed By: #### C MP #### [facility] [address] [place] [address] Dr. Ekta Funk EGFR-AF [place] 40 mL/min/1.73m2 Critically low >=60 [facility] Comment on above: Performed By: #### C MP #### [facility] [address] [place] [address] Dr. Ekta Funk EGFR-NON AF [place] 33 mL/min/1.73m2 Critically low >=60 [facility] Comment on above: Performed By: #### C MP #### [facility] [address] [place] [address] Dr. Ekta Funk Globulin (S) [Mass/Vol] 3.7 g/dL Normal [facility] Comment on above: Performed By: #### C MP #### [facility] [address] [address] [address] Ekta Funk Glucose [Mass/Vol] 117 mg/dL Critically high 74-106 [facility] Comment on above: Performed By: #### C MP #### [facility] [address] [address] [address] Ekta Funk Potassium [Moles/Vol] 4.2 mmol/L Normal 3.5-5.1 [facility] Comment on above: Performed By: #### C MP #### [facility] [address] [place] [address] Dr. Ekta Funk Protein [Mass/Vol] 5.8 g/dL Critically low 6.4-8.2 [facility] Comment on above: Performed By: #### C MP #### [facility] [address] [address] [address] Ekta Funk Sodium [Moles/Vol] 137 mmol/L Normal 136-145 [facility] Comment on above: Performed By: #### C MP #### [facility] [address] [place] [address] Dr. Ekta Funk Urea nitrogen [Mass/Vol] 27.0 mg/dL Critically high 7.0-18.0 [facility] Comment on above: Performed By: #### C MP #### [facility] [address] [address] [address] Ekta Funk Urea nitrogen/Creatinine [Mass ratio] 17.5 mg/mg Normal [facility] Comment on above: Performed By: #### C MP #### [facility] [address] [place] [address] Dr. Ekta Funk AMMONIAon 11-24-2022 Ammonia (P) [Moles/Vol] 13 umol/L Normal 11-32 [facility] Comment on above: Performed By: #### C VDTB #### [facility] [address] [place] [address] Dr. Ekta Funk CBC AUTO DIFFon 11-24-2022 BASO # 0.0 103/ul Normal 0.0-0.1 [facility] Comment on above: Performed By: #### C MP #### [facility] [address] [address] [address] Ekta Funk Basophils/100 WBC (Bld) 0.4 % Normal 0.2-2.0 [facility] Comment on above: Performed By: #### C MP #### [facility] [address] [address] [address] Ekta Funk EO # 0.4 103/ul Normal 0.0-0.7 [facility] Comment on above: Performed By: #### C MP #### [facility] [address] [place] [address] Dr. Ekta Funk Eosinophils/100 WBC (Bld) 3.8 % Normal 0.9-7.0 [facility] Comment on above: Performed By: #### C MP #### [facility] [address] [address] [address] Ekta Funk Erythrocyte distribution width (RBC) [Ratio] 13.2 % Normal 11.0-15.0 [facility] Comment on above: Performed By: #### C MP #### [facility] [address] [place] [address] Dr. Ekta Funk Hematocrit (Bld) [Volume fraction] 34.0 % Critically low 36.0-48.0 [facility] Comment on above: Performed By: #### C MP #### [facility] [address] [address] [address] Ekta Funk Hemoglobin (Bld) [Mass/Vol] 11.5 g/dL Critically low 12.0-16.0 [facility] Comment on above: Performed By: #### C MP #### [facility] [address] [address] [address] Ekta Funk IG # 0.11 10e3/ul Critically high 0.00-0.03 [facility] Comment on above: Performed By: #### C MP #### [facility] [address] [address] [address] Ekta Funk IG % 1.2 % Critically high 0.0-0.[address] [facility] Comment on above: Performed By: #### C MP #### [facility] [address] [place] [address] Dr. Ekta Funk LYMPH # 1.4 103/ul Normal 1.2-3.8 [facility] Comment on above: Performed By: #### C MP #### [facility] [address] [place] [address] Dr. Ekta Funk Lymphocytes/100 WBC (Bld) 14.9 % Critically low 20.5-60.0 [facility] Comment on above: Performed By: #### C MP #### [facility] [address] [place] [address] Dr. Ekta Funk MANUAL DIFF REQ NO Normal [facility] Comment on above: Performed By: #### C MP #### [facility] [address] [place] [address] Dr. Ekta Funk MCH (RBC) [Entitic mass] 32.5 pg Normal 26.7-34.0 [facility] Comment on above: Performed By: #### C MP #### [facility] [address] [place] [address] Dr. Ekta Funk MCHC (RBC) [Mass/Vol] 33.8 g/dL Normal 29.9-35.2 [facility] Comment on above: Performed By: #### C MP #### [facility] [address] [place] [address] Dr. Ekta Funk MCV (RBC) [Entitic vol] 96.0 fL Normal 81.0-99.0 [facility] Comment on above: Performed By: #### C MP #### [facility] [address] [place] [address] Dr. Ekta Funk MONO # 0.9 103/ul Critically high 0.3-0.[address] [facility] Comment on above: Performed By: #### C MP #### [facility] [address] [place] [address] Dr. Ekta Funk Monocytes/100 WBC (Bld) 9.7 % Normal 1.7-12.0 [facility] Comment on above: Performed By: #### C MP #### [facility] [address] [place] [address] Dr. Ekta Funk NEUT # 6.4 103/ul Normal 1.4-6.5 [facility] Comment on above: Performed By: #### C MP #### [facility] [address] [place] [address] Dr. Ekta Funk Neutrophils/100 WBC (Bld) 70.0 % Normal 43.0-75.0 [facility] Comment on above: Performed By: #### C MP #### [facility] [address] [place] [address] Dr. Ekta Funk Platelet mean volume (Bld) [Entitic vol] 9.3 fL Critically low 9.5-13.5 [facility] Comment on above: Performed By: #### C MP #### [facility] [address] [place] [address] Dr. Ekta Funk PLT 308 103/ul Normal 150-450 [facility] Comment on above: Performed By: #### C MP #### [facility] [address] [place] [address] Dr. Ekta Funk RBC 3.54 106/ul Critically low 4.20-5.[address] [facility] Comment on above: Performed By: #### C MP #### [facility] [address] [place] [address] Dr. Ekta Funk WBC 9.1 103/ul Normal 4.0-11.0 [facility] Comment on above: Performed By: #### C MP #### [facility] [address] [place] [address] Dr. Ekta Funk CPKon 11-24-2022 CK [Catalytic activity/Vol] 21 U/L Critically low 26-192 [facility] Comment on above: Performed By: #### B 12FOL, VITAD, IRON #### [facility] [address] [place] [address] STROKE HEAD WOon [...] by: VANESSA PARADA Date: 2022-11-24 11:09 Normal [facility] CTA HEAD WO W CONon 11-25-19 [...] DANIEL PINEDA Date: 2022-11-24 12:41 Normal [facility] CULTURE URINEon 11-24-2022 CULTURE URINE Culture Observations: NO GROWTH. Normal [facility] Comment on above: Performed By: #### I NSULIN #### [facility] [address] [place] [address] Dr. Ekta Funk [facility] SARS-CoV-2 (COVID-19) RNA GANESH+probe Ql (Unsp spec) Not detected Normal NOT DETECTED [facility] Comment on above: Result Comment: [...] for this test is supported by the Second Watch Sergeant of Health and Human Service's declaration that [...] used). Performed By: #### C VDTB #### [facility] [address] [place] [address] Dr. Ekta Funk ER URINE PROFILEon 3 Bilirubin Ql (U) Negative Normal NEGATIVE [facility] Comment on above: Performed By: #### C BC #### [facility] [address] [place] [address] Dr. Ekta Funk Clarity (U) CLEAR Normal CLEAR [facility] Comment on above: Performed By: #### C BC #### [facility] [address] [place] [address] Dr. Ekta Funk Color (U) LT. YELLOW Normal YELLOW [facility] Comment on above: Performed By: #### C BC #### [facility] [address] [place] [address] Dr. Ekta CHAPPELLD A micrscopic examination will be performed if indicated. Normal [facility] Comment on above: Performed By: #### C BC #### [facility] [address] [place] [address] Dr. Ekta Funk Glucose Ql (U) Negative Normal NEGATIVE [facility] Comment on above: Performed By: #### C BC #### [facility] [address] [place] [address] Dr. Ekta Funk Hemoglobin Ql (U) Negative Normal NEGATIVE [facility] Comment on above: Performed By: #### C BC #### [facility] [address] [place] [address] Dr. Ekta Funk Ketones Ql (U) Negative Normal NEGATIVE [facility] Comment on above: Performed By: #### C BC #### [facility] [address] [place] [address] Dr. Ekta Funk LEUKOCYTES Negative Normal NEGATIVE [facility] Comment on above: Performed By: #### C BC #### [facility] [address] [place] [address] Dr. Ekta Funk Nitrite Ql (U) Negative Normal NEGATIVE [facility] Comment on above: Performed By: #### C BC #### [facility] [address] [address] [address] Ekta Funk pH (U) 5.5 [pH] Normal 5-9 [facility] Comment on above: Performed By: #### C BC #### [facility] [address] [place] [address] Dr. Ekta Funk SPEC GRAVITY 1.020 Normal 1.005-<=1.025 [facility] Comment on above: Performed By: #### C BC #### [facility] [address] [place] [address] Dr. Ekta Funk UA PROTEIN Negative Normal NEGATIVE/ TRACE [facility] Comment on above: Performed By: #### C BC #### [facility] [address] [place] [address] Dr. Ekta Funk UR MICRO IND NOT INDICATED Normal [facility] Comment on above: Performed By: #### C BC #### [facility] [address] [place] [address] Dr. Ekta Funk Urobilinogen Qn (U) 0.2 {Ivan'U}/dL Normal 0.2 - 1. 0 [facility] Comment on above: Performed By: #### C BC #### [facility] [address] [place] [address] Dr. Ekta Funk GLYCOHEMOGLOBIN A1Con 2022 ADA RECOMMENDATION SEE BELOW Normal [facility] Comment on above: Result Comment: ADA RECOMMENDED LIMIT 4.0 - 6.0 ADA THERAPEUTIC TARGET < 7.0 ACTION SUGGESTED > 7.0 Performed By: #### B 12FOL, VITAD, IRON #### [facility] [address] [place] [address] Dr. Ekta Funk Glucose [Mass/Vol] 143 mg/dL Normal [facility] Comment on above: Performed By: #### B 12FOL, VITAD, IRON #### [facility] [address] [place] [address] Dr. Ekta Funk HbA1c (Bld) [Mass fraction] 6.6 % Critically high 4.5-6.2 [facility] Comment on above: Performed By: #### B 12FOL, VITAD, IRON #### [facility] [address] [place] [address] Dr. Ekta Funk LACTATE/LACTIC ACIDon 2022 Lactate [Moles/Vol] 1.6 mmol/L Normal 0.4-2.0 [facility] Comment on above: Performed By: #### C MP #### [facility] [address] [place] [address] Dr. Ekta Funk Lactate [Moles/Vol] 2.1 mmol/L Critically high 0.4-2.0 [facility] Comment on above: Performed By: #### B 12FOL, VITAD, IRON #### [facility] [address] [place] [address] Dr. Ekta Funk LIPASEon 11-24-2022 Lipase [Catalytic activity/Vol] 165.0 U/L Normal 73.0-393.0 [facility] Comment on above: Performed By: #### B 12FOL, VITAD, IRON #### [facility] [address] [place] [address] Dr. Ekta Funk LIPID PROFILEon 11-24-2022 CHOL-HDL RATIO NORM SEE BELOW Normal [facility] Comment on above: Result Comment: 3.3 - 4.4 LOW RISK 4.4 - 7.1 AVERAGE RISK 7.1 - 11.0 MODERATE RISK >11.0 HIGH RISK Performed By: #### B 12FOL, VITAD, IRON #### [facility] [address] [place] [address] Dr. Ekta Funk Cholesterol [Mass/Vol] 248 mg/dL Critically high <=200 [facility] Comment on above: Performed By: #### B 12FOL, VITAD, IRON #### [facility] [address] [address] [address] Ekta Funk Cholesterol in HDL [Mass/Vol] 58 mg/dL Normal 40-60 [facility] Comment on above: Performed By: #### B 12FOL, VITAD, IRON #### [facility] [address] [address] [address] Ekta Funk Cholesterol in LDL [Mass/Vol] 165.6 mg/dL Normal [facility] Comment on above: Performed By: #### B 12FOL, VITAD, IRON #### [facility] [address] [address] [address] Ekta Funk Cholesterol.total/Chol esterol in HDL [Mass ratio] 4.3 {ratio} Normal [facility] Comment on above: Performed By: #### B 12FOL, VITAD, IRON #### [facility] [address] [address] [address] Ekta Funk HDL NORMAL > or = 60 mg/dl - LOW CARDIOVASCULAR RISK <40 mg/dl - HIGH CARDIOVASCULAR RISK Normal [facility] Comment on above: Performed By: #### B 12FOL, VITAD, IRON #### [facility] [address] [address] [address] Ekta Funk LDL CALC NORMAL SEE BELOW Normal [facility] Comment on above: Result Comment: <100 mg/dl OPTIMAL 100 - 129 mg/dl NEAR OR ABOVE OPTIMAL 130 - 159 mg/dl BORDERLINE HIGH 160 - 189 mg/dl HIGH >190 mg/dl VERY HIGH Performed By: #### B 12FOL, VITAD, IRON #### [facility] [address] [address] [address] Ekta Funk Triglyceride [Mass/Vol] 122 mg/dL Normal <=150 [facility] Comment on above: Performed By: #### B 12FOL, VITAD, IRON #### [facility] [address] [address] [address] Ekta Funk VLDL CALC 24.4 mg/dL Normal [facility] Comment on above: Performed By: #### B 12FOL, VITAD, IRON #### [facility] [address] [place], [place] [address] Dr. Ekta Funk MRI BRAIN WO CONon [...] by: RAVEN ELAINE Date: 2022-11-24 19:35 Normal [facility] PROF 14(COMP METB)on 023 Albumin [Mass/Vol] 2.7 g/dL Critically low 3.4-5.0 [facility] Comment on above: Performed By: #### B 12FOL, VITAD, IRON #### [facility] [address] [place], [place] [address] Dr. Ekta Funk Albumin/Globulin [Mass ratio] 0.6 {ratio} Normal [facility] Comment on above: Performed By: #### B 12FOL, VITAD, IRON #### [facility] [address] [place], [place] [address] Dr. Ekta Funk ALP [Catalytic activity/Vol] 85 U/L Normal 46-116 [facility] Comment on above: Performed By: #### B 12FOL, VITAD, IRON #### [facility] [address] [address] [address] Ekta Funk ALT [Catalytic activity/Vol] 18 U/L Normal 14-59 [facility] Comment on above: Performed By: #### B 12FOL, VITAD, IRON #### [facility] [address] [address] [address] Ekta Funk Anion gap [Moles/Vol] 18.9 mmol/L Normal [facility] Comment on above: Performed By: #### B 12FOL, VITAD, IRON #### [facility] [address] [place] [address] Dr. Ekta Funk AST [Catalytic activity/Vol] 16 U/L Normal 15-37 [facility] Comment on above: Performed By: #### B 12FOL, VITAD, IRON #### [facility] [address] [place] [address] Dr. Ekta Funk Bilirubin [Mass/Vol] 0.4 mg/dL Normal 0.2-1.0 [facility] Comment on above: Performed By: #### B 12FOL, VITAD, IRON #### [facility] [address] [place] [address] Dr. Ekta Funk Calcium [Mass/Vol] 9.5 mg/dL Normal 8.5-10.1 [facility] Comment on above: Performed By: #### B 12FOL, VITAD, IRON #### [facility] [address] [place] [address] Dr. Ekta Funk Chloride [Moles/Vol] 108 mmol/L Critically high 98-107 [facility] Comment on above: Performed By: #### B 12FOL, VITAD, IRON #### [facility] [address] [place] [address] Dr. Ekta Funk CO2 [Moles/Vol] 21.1 mmol/L Normal 21.0-32.0 [facility] Comment on above: Performed By: #### B 12FOL, VITAD, IRON #### [facility] [address] [place] [address] Dr. Ekta Funk Creatinine [Mass/Vol] 2.08 mg/dL Critically high 0.55-1.02 [facility] Comment on above: Performed By: #### B 12FOL, VITAD, IRON #### [facility] [address] [place] [address] Dr. Ekta Funk EGFR-AF [place] 28 mL/min/1.73m2 Critically low >=60 [facility] Comment on above: Performed By: #### B 12FOL, VITAD, IRON #### [facility] [address] [place] [address] Dr. Ekta Funk EGFR-NON AF [place] 23 mL/min/1.73m2 Critically low >=60 [facility] Comment on above: Performed By: #### B 12FOL, VITAD, IRON #### [facility] [address] [place] [address] Dr. Ekta Funk Globulin (S) [Mass/Vol] 4.6 g/dL Normal [facility] Comment on above: Performed By: #### B 12FOL, VITAD, IRON #### [facility] [address] [place] [address] Dr. Ekta Funk Glucose [Mass/Vol] 119 mg/dL Critically high 74-106 [facility] Comment on above: Performed By: #### B 12FOL, VITAD, IRON #### [facility] [address] [place] [address] Dr. Ekta Funk Potassium [Moles/Vol] 5.0 mmol/L Normal 3.5-5.1 [facility] Comment on above: Performed By: #### B 12FOL, VITAD, IRON #### [facility] [address] [place] [address] Dr. Ekta Funk Protein [Mass/Vol] 7.3 g/dL Normal 6.4-8.2 [facility] Comment on above: Performed By: #### B 12FOL, VITAD, IRON #### [facility] [address] [place] [address] Dr. Ekta Funk Sodium [Moles/Vol] 143 mmol/L Normal 136-[address] [facility] Comment on above: Performed By: #### B DEVANGLNENOAD, IRON #### [facility] [address] [place] [address] Dr. Ekta Funk Urea nitrogen [Mass/Vol] 37.0 mg/dL Critically high 7.0-18.0 [facility] Comment on above: Performed By: #### B ElviraFOL VITAD, IRON #### [facility] [address] [place] [address] Dr. Ekta Funk Urea nitrogen/Creatinine [Mass ratio] 17.8 mg/mg Normal [facility] Comment on above: Performed By: #### B DEVANGLNENOAD, IRON #### [facility] [address] [place] [address] Dr. Ekta Funk TROPONIN, HIGH SENSITIVITYon 11-24-2022 HSTROP 14.1 pg/mL Normal 4.0-51.3 [facility] Comment on above: Result Comment: CUT- OFF POINTS HAVE BEEN ESTABLISHED BASED ON THE FOURTH UNIVERSAL DEFINITIONS OF MYOCARDIAL INFARCTION. THE UPPER REFERENCE LIMIT (URL) OF TROPONIN, DEFINED THE 99TH PERCENTILE OF cTnI DISTRIBUTION IN A REFERENCE POPULATION, HAS BEEN CONFIRMED THE DECISION THRESHOLD FOR SC DIAGNOSIS. Performed By: #### B DEVANGL VITAD, IRON #### [facility] [address] [place] [address] Dr. Ekta Funk TSHon 11-24-2022 TSH 1.184 uIU/mL Normal 0.358-3.740 [facility] Comment on above: Performed By: #### B 12FOL VITAD, IRON #### [facility] [address] [place] [address] Dr. Ekta Funk XR CHEST 1 Von [...] NATALIIA TATE Date: 2022-11-24 11:00 Normal [facility] BNPon 11-13-2022 Natriuretic peptide B (Bld) [Mass/Vol] 565.0 pg/mL Normal <=900.0 [facility] Comment on above: Performed By: #### I NSULIN #### [facility] [address] [address] [address] Ekta Funk CBC AUTO DIFFon 11-13-2022 BASO # 0.1 103/ul Normal 0.0-0.1 [facility] Comment on above: Performed By: #### C BC #### [facility] [address] [place] [address] Dr. Ekta Funk Basophils/100 WBC (Bld) 0.6 % Normal 0.2-2.0 [facility] Comment on above: Performed By: #### C BC #### [facility] [address] [place] [address] Dr. Ekta Funk EO # 0.4 103/ul Normal 0.0-0.7 [facility] Comment on above: Performed By: #### C BC #### [facility] [address] [place] [address] Dr. Ekta Funk Eosinophils/100 WBC (Bld) 3.7 % Normal 0.9-7.0 [facility] Comment on above: Performed By: #### C BC #### [facility] [address] [address] [address] Ekta Funk Erythrocyte distribution width (RBC) [Ratio] 13.2 % Normal 11.0-15.0 [facility] Comment on above: Performed By: #### C BC #### [facility] [address] [place] [address] Dr. Ekta Funk Hematocrit (Bld) [Volume fraction] 36.7 % Normal 36.0-48.0 [facility] Comment on above: Performed By: #### C BC #### [facility] [address] [address] [address] Ekta Funk Hemoglobin (Bld) [Mass/Vol] 12.4 g/dL Normal 12.0-16.0 [facility] Comment on above: Performed By: #### C BC #### [facility] [address] [address] [address] Ekta Funk IG # 0.10 10e3/ul Critically high 0.00-0.03 [facility] Comment on above: Performed By: #### C BC #### [facility] [address] [address] [address] Ekta Funk IG % 1.0 % Critically high 0.0-0.5 [facility] Comment on above: Performed By: #### C BC #### [facility] [address] [address] [address] Ekta Funk LYMPH # 1.5 103/ul Normal 1.2-3.8 [facility] Comment on above: Performed By: #### C BC #### [facility] [address] [address] [address] Ekta Funk Lymphocytes/100 WBC (Bld) 14.9 % Critically low 20.5-60.0 [facility] Comment on above: Performed By: #### C BC #### [facility] [address] [address] [address] Ekta Funk MANUAL DIFF REQ NO Normal [facility] Comment on above: Performed By: #### C BC #### [facility] [address] [address] [address] Ekta Funk MCH (RBC) [Entitic mass] 32.8 pg Normal 26.7-34.0 [facility] Comment on above: Performed By: #### C BC #### [facility] [address] [address] [address] Ekta Funk MCHC (RBC) [Mass/Vol] 33.8 g/dL Normal 29.9-35.2 [facility] Comment on above: Performed By: #### C BC #### [facility] [address] [address] [address] Ekta Funk MCV (RBC) [Entitic vol] 97.1 fL Normal 81.0-99.0 [facility] Comment on above: Performed By: #### C BC #### [facility] [address] [place] [address] Dr. Ekta Funk MONO # 0.8 103/ul Normal 0.3-0.8 [facility] Comment on above: Performed By: #### C BC #### [facility] [address] [place] [address] Dr. Ekta Funk Monocytes/100 WBC (Bld) 7.7 % Normal 1.7-12.0 [facility] Comment on above: Performed By: #### C BC #### [facility] [address] [place] [address] Dr. Ekta Funk NEUT # 7.3 103/ul Critically high 1.4-6.5 [facility] Comment on above: Performed By: #### C BC #### [facility] [address] [place] [address] Dr. Ekta Funk Neutrophils/100 WBC (Bld) 72.1 % Normal 43.0-75.0 [facility] Comment on above: Performed By: #### C BC #### [facility] [address] [place] [address] Dr. Ekta Funk Platelet mean volume (Bld) [Entitic vol] 9.4 fL Critically low 9.5-13.5 [facility] Comment on above: Performed By: #### C BC #### [facility] [address] [place] [address] Dr. Ekta Funk PLT 251 103/ul Normal 150-450 [facility] Comment on above: Performed By: #### C BC #### [facility] [address] [place] [address] Dr. Ekta Funk RBC 3.78 106/ul Critically low 4.20-5.[address] [facility] Comment on above: Performed By: #### C BC #### [facility] [address] [address] [address] Ekta Funk WBC 10.1 103/ul Normal 4.0-11.0 [facility] Comment on above: Performed By: #### C BC #### [facility] [address] [address] [address] Ekta Funk FREE THYROXINE INDEX T7on FTI 2.73 Normal 1.30-4.50 [facility] Comment on above: Performed By: #### I NSULIN #### [facility] [address] [place] [address] Dr. Ekta Funk T3U 35.0 % Normal 30.0-39.0 [facility] Comment on above: Performed By: #### I NSULIN #### [facility] [address] [place] [address] Dr. Ekta Funk T4 [Mass/Vol] 7.80 ug/dL Normal 4.80-13.90 [facility] Comment on above: Performed By: #### I NSULIN #### [facility] [address] [place] [address] Dr. Ekta Funk GLYCOHEMOGLOBIN A1Con 2022 ADA RECOMMENDATION SEE BELOW Normal [facility] Comment on above: Result Comment: ADA RECOMMENDED LIMIT 4.0 - 6.0 ADA THERAPEUTIC TARGET < 7.0 ACTION SUGGESTED > 7.0 Performed By: #### B 12FOL, VITAD, IRON #### [facility] [address] [place] [address] Dr. Ekta Funk Glucose [Mass/Vol] 134 mg/dL Normal [facility] Comment on above: Performed By: #### B 12FOL, VITAD, IRON #### [facility] [address] [place] [address] Dr. Ekta Funk HbA1c (Bld) [Mass fraction] 6.3 % Critically high 4.5-6.2 [facility] Comment on above: Performed By: #### B 12FOL, VITAD, IRON #### [facility] [address] [place] [address] Dr. Ekta Funk IRONon 11-13-2022 Iron [Mass/Vol] 55.0 ug/dL Normal 50.0-170.0 [facility] Comment on above: Performed By: #### B 12FOL, VITAD, IRON #### [facility] [address] [address] [address] Ekta Funk LIPID PROFILEon 11-13-2022 CHOL-HDL RATIO NORM SEE BELOW Normal [facility] Comment on above: Result Comment: 3.3 - 4.4 LOW RISK 4.4 - 7.1 AVERAGE RISK 7.1 - 11.0 MODERATE RISK >11.0 HIGH RISK Performed By: #### I NSULIN #### [facility] [address] [address] [address] Ekta Funk Cholesterol [Mass/Vol] 294 mg/dL Critically high <=200 [facility] Comment on above: Performed By: #### I NSULIN #### [facility] [address] [address] [address] Ekta Funk Cholesterol in HDL [Mass/Vol] 64 mg/dL Critically high 40-60 [facility] Comment on above: Performed By: #### I NSULIN #### [facility] [address] [address] [address] Ekta Funk Cholesterol in LDL [Mass/Vol] 197.2 mg/dL Normal [facility] Comment on above: Performed By: #### I NSULIN #### [facility] [address] [address] [address] Ekta Funk Cholesterol.total/Chol esterol in HDL [Mass ratio] 4.6 {ratio} Normal [facility] Comment on above: Performed By: #### I NSULIN #### [facility] [address] [address] [address] Ekta Funk HDL NORMAL > or = 60 mg/dl - LOW CARDIOVASCULAR RISK <40 mg/dl - HIGH CARDIOVASCULAR RISK Normal [facility] Comment on above: Performed By: #### I NSULIN #### [facility] [address] [address] [address] Ekta Funk LDL CALC NORMAL SEE BELOW Normal [facility] Comment on above: Result Comment: <100 mg/dl OPTIMAL 100 - 129 mg/dl NEAR OR ABOVE OPTIMAL 130 - 159 mg/dl BORDERLINE HIGH 160 - 189 mg/dl HIGH >190 mg/dl VERY HIGH Performed By: #### I NSULIN #### [facility] [address] [place] [address] Dr. Ekta Funk Triglyceride [Mass/Vol] 164 mg/dL Critically high <=150 [facility] Comment on above: Performed By: #### I NSULIN #### [facility] [address] [place] [address] Dr. Ekta Funk VLDL CALC 32.8 mg/dL Normal [facility] Comment on above: Performed By: #### I NSULIN #### [facility] [address] [place] [address] Dr. Ekta Funk PROF 14(COMP METB)on 023 Albumin [Mass/Vol] 3.0 g/dL Critically low 3.4-5.0 [facility] Comment on above: Performed By: #### I NSULIN #### [facility] [address] [place] [address] Dr. Ekta Funk Albumin/Globulin [Mass ratio] 0.6 {ratio} Normal [facility] Comment on above: Performed By: #### I NSULIN #### [facility] [address] [place] [address] Dr. Ekta Funk ALP [Catalytic activity/Vol] 92 U/L Normal 46-116 [facility] Comment on above: Performed By: #### I NSULIN #### [facility] [address] [place] [address] Dr. Ekta Funk ALT [Catalytic activity/Vol] 26 U/L Normal 14-59 [facility] Comment on above: Performed By: #### I NSULIN #### [facility] [address] [place] [address] Dr. Ekta Funk Anion gap [Moles/Vol] 16.2 mmol/L Normal [facility] Comment on above: Performed By: #### I NSULIN #### [facility] [address] [place] [address] Dr. Ekta Funk AST [Catalytic activity/Vol] 16 U/L Normal 15-37 [facility] Comment on above: Performed By: #### I NSULIN #### [facility] [address] [address] [address] Ekta Funk Bilirubin [Mass/Vol] 0.5 mg/dL Normal 0.2-1.0 [facility] Comment on above: Performed By: #### I NSULIN #### [facility] [address] [address] [address] Ekta Funk Calcium [Mass/Vol] 9.7 mg/dL Normal 8.5-10.1 [facility] Comment on above: Performed By: #### I NSULIN #### [facility] [address] [place] [address] Dr. Ekta Funk Chloride [Moles/Vol] 105 mmol/L Normal 98-107 [facility] Comment on above: Performed By: #### I NSULIN #### [facility] [address] [address] [address] Ekta Funk CO2 [Moles/Vol] 24.9 mmol/L Normal 21.0-32.0 [facility] Comment on above: Performed By: #### I NSULIN #### [facility] [address] [place] [address] Dr. Ekta Funk Creatinine [Mass/Vol] 2.18 mg/dL Critically high 0.55-1.02 [facility] Comment on above: Performed By: #### I NSULIN #### [facility] [address] [place] [address] Dr. Ekta Funk EGFR-AF [place] 27 mL/min/1.73m2 Critically low >=60 [facility] Comment on above: Performed By: #### I NSULIN #### [facility] [address] [address] [address] Ekta Funk EGFR-NON AF [place] 22 mL/min/1.73m2 Critically low >=60 [facility] Comment on above: Performed By: #### I NSULIN #### [facility] [address] [place] [address] Dr. Ekta Funk Globulin (S) [Mass/Vol] 4.7 g/dL Normal [facility] Comment on above: Performed By: #### I NSULIN #### [facility] [address] [address] [address] Ekta Funk Glucose [Mass/Vol] 114 mg/dL Critically high 74-106 [facility] Comment on above: Performed By: #### I NSULIN #### [facility] [address] [address] [address] Ekta Funk Potassium [Moles/Vol] 5.1 mmol/L Normal 3.5-5.1 [facility] Comment on above: Performed By: #### I NSULIN #### [facility] [address] [place] [address] Dr. Ekta Funk Protein [Mass/Vol] 7.7 g/dL Normal 6.4-8.2 [facility] Comment on above: Performed By: #### I NSULIN #### [facility] [address] [place] [address] Dr. Ekta Funk Sodium [Moles/Vol] 141 mmol/L Normal 136-145 [facility] Comment on above: Performed By: #### I NSULIN #### [facility] [address] [place] [address] Dr. Ekta Funk Urea nitrogen [Mass/Vol] 51.0 mg/dL Critically high 7.0-18.0 [facility] Comment on above: Performed By: #### I NSULIN #### [facility] [address] [place] [address] Dr. Ekta Funk Urea nitrogen/Creatinine [Mass ratio] 23.4 mg/mg Normal [facility] Comment on above: Performed By: #### I NSULIN #### [facility] [address] [place] [address] Dr. Ekta Funk TSHon 11-13-2022 TSH 0.935 uIU/mL Normal 0.358-3.740 [facility] Comment on above: Performed By: #### I NSULIN #### [facility] [address] [place] [address] Dr. Ekta Funk XR CHEST 2 Von [...] GODWIN BECK Date: 2022-11-13 15:40 Normal [facility] PROF 14(COMP METB)on 023 Albumin [Mass/Vol] 3.0 g/dL Critically low 3.4-5.0 [facility] Comment on above: Performed By: #### B 12FOL, VITAD, IRON #### [facility] [address] [place] [address] Dr. Ekta Funk Albumin/Globulin [Mass ratio] 0.7 {ratio} Normal [facility] Comment on above: Performed By: #### B 12FOL, VITAD, IRON #### [facility] [address] [place] [address] Dr. Ekta Funk ALP [Catalytic activity/Vol] 89 U/L Normal 46-116 [facility] Comment on above: Performed By: #### B 12FOL, VITAD, IRON #### [facility] [address] [address] [address] Ekta Funk ALT [Catalytic activity/Vol] 29 U/L Normal 14-59 [facility] Comment on above: Performed By: #### B 12FOL, VITAD, IRON #### [facility] [address] [place] [address] Dr. Ekta Funk Anion gap [Moles/Vol] 15.2 mmol/L Normal [facility] Comment on above: Performed By: #### B 12FOL, VITAD, IRON #### [facility] [address] [place] [address] Dr. Ekta Funk AST [Catalytic activity/Vol] 14 U/L Critically low 15-37 [facility] Comment on above: Performed By: #### B 12FOL, VITAD, IRON #### [facility] [address] [address] [address] Ekta Funk Bilirubin [Mass/Vol] 0.4 mg/dL Normal 0.2-1.0 [facility] Comment on above: Performed By: #### B 12FOL, VITAD, IRON #### [facility] [address] [address] [address] Ekta Funk Calcium [Mass/Vol] 9.1 mg/dL Normal 8.5-10.1 [facility] Comment on above: Performed By: #### B 12FOL, VITAD, IRON #### [facility] [address] [place] [address] Dr. Ekta Funk Chloride [Moles/Vol] 106 mmol/L Normal 98-107 [facility] Comment on above: Performed By: #### B 12FOL, VITAD, IRON #### [facility] [address] [address] [address] Ekta Funk CO2 [Moles/Vol] 24.2 mmol/L Normal 21.0-32.0 [facility] Comment on above: Performed By: #### B 12FOL, VITAD, IRON #### [facility] [address] [address] [address] Ekta Funk Creatinine [Mass/Vol] 1.89 mg/dL Critically high 0.55-1.02 [facility] Comment on above: Performed By: #### B 12FOL, VITAD, IRON #### [facility] [address] [address] [address] Ekta Funk EGFR-AF [place] 32 mL/min/1.73m2 Critically low >=60 [facility] Comment on above: Performed By: #### B 12FOL, VITAD, IRON #### [facility] [address] [address] [address] Ekta Funk EGFR-NON AF [place] 26 mL/min/1.73m2 Critically low >=60 [facility] Comment on above: Performed By: #### B 12FOL, VITAD, IRON #### [facility] [address] [address] [address] Ekta Funk Globulin (S) [Mass/Vol] 4.1 g/dL Normal [facility] Comment on above: Performed By: #### B 12FOL, VITAD, IRON #### [facility] [address] [address] [address] Ekta Funk Glucose [Mass/Vol] 108 mg/dL Critically high 74-106 [facility] Comment on above: Performed By: #### B 12FOL, VITAD, IRON #### [facility] [address] [place] [address] Dr. Ekta Funk Potassium [Moles/Vol] 4.4 mmol/L Normal 3.5-5.1 [facility] Comment on above: Performed By: #### B 12FOL, VITAD, IRON #### [facility] [address] [place] [address] Dr. Ekta Funk Protein [Mass/Vol] 7.1 g/dL Normal 6.4-8.[address] [facility] Comment on above: Performed By: #### B 12FOL, VITAD, IRON #### [facility] [address] [place] [address] Dr. Ekat Funk Sodium [Moles/Vol] 141 mmol/L Normal 136-[address] [facility] Comment on above: Performed By: #### B 12FOL, VITAD, IRON #### [facility] [address] [place] [address] Dr. Ekta Funk Urea nitrogen [Mass/Vol] 40.0 mg/dL Critically high 7.0-18.0 [facility] Comment on above: Performed By: #### B 12FOL, VITAD, IRON #### [facility] [address] [place] [address] Dr. Ekta Funk Urea nitrogen/Creatinine [Mass ratio] 21.2 mg/mg Normal [facility] Comment on above: Performed By: #### B 12FOL, VITAD, IRON #### [facility] [address] [place] [address] Dr. Ekta Funk BNPon 10-23-2022 Natriuretic peptide B (Bld) [Mass/Vol] 507.0 pg/mL Normal <=900.0 [facility] Comment on above: Performed By: #### B 12FOL, VITAD, IRON #### [facility] [address] [place] [address] Dr. Ekta Funk CBC AUTO DIFFon 10-23-2022 BASO # 0.0 103/ul Normal 0.0-0.1 [facility] Comment on above: Performed By: #### C BC #### [facility] [address] [place] [address] Dr. Ekta Funk Basophils/100 WBC (Bld) 0.2 % Normal 0.2-2.0 [facility] Comment on above: Performed By: #### C BC #### [facility] [address] [place] [address] Dr. Ekta Funk EO # 0.1 103/ul Normal 0.0-0.7 [facility] Comment on above: Performed By: #### C BC #### [facility] [address] [place] [address] Dr. Ekta Funk Eosinophils/100 WBC (Bld) 1.1 % Normal 0.9-7.0 [facility] Comment on above: Performed By: #### C BC #### [facility] [address] [place] [address] Dr. Ekta Funk Erythrocyte distribution width (RBC) [Ratio] 12.8 % Normal 11.0-15.0 [facility] Comment on above: Performed By: #### C BC #### [facility] [address] [place] [address] Dr. Ekta Funk Hematocrit (Bld) [Volume fraction] 37.1 % Normal 36.0-48.0 [facility] Comment on above: Performed By: #### C BC #### [facility] [address] [place] [address] Dr. Ekta Funk Hemoglobin (Bld) [Mass/Vol] 13.0 g/dL Normal 12.0-16.0 [facility] Comment on above: Performed By: #### C BC #### [facility] [address] [place] [address] Dr. Ekta Funk IG # 0.11 10e3/ul Critically high 0.00-0.03 [facility] Comment on above: Performed By: #### C BC #### [facility] [address] [place] [address] Dr. Ekta Funk IG % 1.1 % Critically high 0.0-0.5 [facility] Comment on above: Performed By: #### C BC #### [facility] [address] [place] [address] Dr. Ekta Funk LYMPH # 1.6 103/ul Normal 1.2-3.8 [facility] Comment on above: Performed By: #### C BC #### [facility] [address] [place] [address] Dr. Ekta Funk Lymphocytes/100 WBC (Bld) 15.6 % Critically low 20.5-60.0 [facility] Comment on above: Performed By: #### C BC #### [facility] [address] [place] [address] Dr. Ekta Funk MANUAL DIFF REQ NO Normal [facility] Comment on above: Performed By: #### C BC #### [facility] [address] [place] [address] Dr. Ekta Funk MCH (RBC) [Entitic mass] 32.8 pg Normal 26.7-34.0 [facility] Comment on above: Performed By: #### C BC #### [facility] [address] [place] [address] Dr. Ekta Funk MCHC (RBC) [Mass/Vol] 35.0 g/dL Normal 29.9-35.2 [facility] Comment on above: Performed By: #### C BC #### [facility] [address] [place] [address] Dr. Ekta Funk MCV (RBC) [Entitic vol] 93.7 fL Normal 81.0-99.0 [facility] Comment on above: Performed By: #### C BC #### [facility] [address] [place] [address] Dr. Ekta Funk MONO # 0.9 103/ul Critically high 0.3-0.[address] [facility] Comment on above: Performed By: #### C BC #### [facility] [address] [place] [address] Dr. Ekta Funk Monocytes/100 WBC (Bld) 8.3 % Normal 1.7-12.0 [facility] Comment on above: Performed By: #### C BC #### [facility] [address] [place] [address] Dr. Ekta Funk NEUT # 7.5 103/ul Critically high 1.4-6.[address] [facility] Comment on above: Performed By: #### C BC #### [facility] [address] [place] [address] Dr. Ekta Funk Neutrophils/100 WBC (Bld) 73.7 % Normal 43.0-75.0 [facility] Comment on above: Performed By: #### C BC #### [facility] [address] [place] [address] Dr. Ekta Funk Platelet mean volume (Bld) [Entitic vol] 10.3 fL Normal 9.5-13.5 [facility] Comment on above: Performed By: #### C BC #### [facility] [address] [place] [address] Dr. Ekta Funk PLT 135 103/ul Critically low 150-450 [facility] Comment on above: Performed By: #### C BC #### [facility] [address] [place], [place] [id number] Dr. Ekta Funk RBC 3.96 106/ul Critically low 4.20-5.[address] [facility] Comment on above: Performed By: #### C BC #### [facility] [address] [place] [address] Dr. Ekta Funk WBC 10.2 103/ul Normal 4.0-11.0 [facility] Comment on above: Performed By: #### C BC #### [facility] [address] [place] [address] Dr. Ekta Funk PROF 14(COMP METB)on 023 Albumin [Mass/Vol] 2.7 g/dL Critically low 3.4-5.0 [facility] Comment on above: Performed By: #### B 12FOL, VITAD, IRON #### [facility] [address] [place] [address] Dr. Ekta Funk Albumin/Globulin [Mass ratio] 0.8 {ratio} Normal [facility] Comment on above: Performed By: #### B 12FOL, VITAD, IRON #### [facility] [address] [place] [address] Dr. Ekta Funk ALP [Catalytic activity/Vol] 74 U/L Normal 46-116 [facility] Comment on above: Performed By: #### B 12FOL, VITAD, IRON #### [facility] [address] [place] [address] Dr. Ekta Funk ALT [Catalytic activity/Vol] 26 U/L Normal 14-59 [facility] Comment on above: Performed By: #### B 12FOL, VITAD, IRON #### [facility] [address] [place] [address] Dr. Ekta Funk Anion gap [Moles/Vol] 16.5 mmol/L Normal [facility] Comment on above: Performed By: #### B 12FOL, VITAD, IRON #### [facility] [address] [place] [address] Dr. Ekta Funk AST [Catalytic activity/Vol] 15 U/L Normal 15-37 [facility] Comment on above: Performed By: #### B 12FOL, VITAD, IRON #### [facility] [address] [place] [address] Dr. Ekta Funk Bilirubin [Mass/Vol] 0.4 mg/dL Normal 0.2-1.0 [facility] Comment on above: Performed By: #### B 12FOL, VITAD, IRON #### [facility] [address] [place] [address] Dr. Ekta Funk Calcium [Mass/Vol] 8.1 mg/dL Critically low 8.5-10.1 [facility] Comment on above: Performed By: #### B 12FOL, VITAD, IRON #### [facility] [address] [place] [address] Dr. Ekta Funk Chloride [Moles/Vol] 96 mmol/L Critically low 98-107 [facility] Comment on above: Performed By: #### B 12FOL, VITAD, IRON #### [facility] [address] [place] [address] Dr. Ekta Funk CO2 [Moles/Vol] 26.1 mmol/L Normal 21.0-32.0 [facility] Comment on above: Performed By: #### B 12FOL, VITAD, IRON #### [facility] [address] [place] [address] Dr. Ekta Funk Creatinine [Mass/Vol] 3.28 mg/dL Critically high 0.55-1.02 [facility] Comment on above: Performed By: #### B 12FOL, VITAD, IRON #### [facility] [address] [place] [address] Dr. Ekta Funk EGFR-AF [place] 17 mL/min/1.73m2 Critically low >=60 [facility] Comment on above: Performed By: #### B 12FOL, VITAD, IRON #### [facility] [address] [place] [address] Dr. Ekta Funk EGFR-NON AF [place] 14 mL/min/1.73m2 Critically low >=60 [facility] Comment on above: Performed By: #### B 12FOL, VITAD, IRON #### [facility] [address] [place] [address] Dr. Ekta Funk Globulin (S) [Mass/Vol] 3.6 g/dL Normal [facility] Comment on above: Performed By: #### B 12FOL, VITAD, IRON #### [facility] [address] [place] [address] Dr. Ekta Funk Glucose [Mass/Vol] 132 mg/dL Critically high 74-106 [facility] Comment on above: Performed By: #### B 12FOL, VITAD, IRON #### [facility] [address] [place] [address] Dr. Ekta Funk Potassium [Moles/Vol] 4.6 mmol/L Normal 3.5-5.1 [facility] Comment on above: Performed By: #### B 12FOL, VITAD, IRON #### [facility] [address] [place] [address] Dr. Ekta Funk Protein [Mass/Vol] 6.3 g/dL Critically low 6.4-8.2 [facility] Comment on above: Performed By: #### B 12FOL, VITAD, IRON #### [facility] [address] [place] [address] Dr. Ekta Funk Sodium [Moles/Vol] 134 mmol/L Critically low 136-145 [facility] Comment on above: Performed By: #### B 12FOL, VITAD, IRON #### [facility] [address] [place] [address] Dr. Ekta Funk Urea nitrogen [Mass/Vol] 74.0 mg/dL Critically high 7.0-18.0 [facility] Comment on above: Performed By: #### B 12FOL, VITAD, IRON #### [facility] [address] [place] [address] Dr. Ekta Funk Urea nitrogen/Creatinine [Mass ratio] 22.6 mg/mg Normal [facility] Comment on above: Performed By: #### B 12FOL, VITAD, IRON #### [facility] [address] [place] [address] Dr. Ekta Funk BNPon 10-22-2022 Natriuretic peptide B (Bld) [Mass/Vol] 1411.0 pg/mL Critically high <=900.0 [facility] Comment on above: Performed By: #### B 12FOL, VITAD, IRON #### [facility] [address] [place] [address] Dr. Ekta Funk CBC AUTO DIFFon 10-22-2022 BASO # 0.0 103/ul Normal 0.0-0.1 [facility] Comment on above: Performed By: #### B 12FOL, VITAD, IRON #### [facility] [address] [place] [address] Dr. Ekta Funk Basophils/100 WBC (Bld) 0.3 % Normal 0.2-2.0 [facility] Comment on above: Performed By: #### B 12FOL, VITAD, IRON #### [facility] [address] [place] [address] Dr. Ekta Funk EO # 0.1 103/ul Normal 0.0-0.7 [facility] Comment on above: Performed By: #### B 12FOL, VITAD, IRON #### [facility] [address] [place] [address] Dr. Ekta Funk Eosinophils/100 WBC (Bld) 0.6 % Critically low 0.9-7.0 [facility] Comment on above: Performed By: #### B 12FOL, VITAD, IRON #### [facility] [address] [place] [address] Dr. Ekta Funk Erythrocyte distribution width (RBC) [Ratio] 12.9 % Normal 11.0-15.0 [facility] Comment on above: Performed By: #### B 12FOL, VITAD, IRON #### [facility] [address] [place] [address] Dr. Ekta Funk Hematocrit (Bld) [Volume fraction] 40.8 % Normal 36.0-48.0 [facility] Comment on above: Performed By: #### B 12FOL, VITAD, IRON #### [facility] [address] [place] [address] Dr. Ekta Funk Hemoglobin (Bld) [Mass/Vol] 14.0 g/dL Normal 12.0-16.0 [facility] Comment on above: Performed By: #### B 12FOL, VITAD, IRON #### [facility] [address] [place] [address] Dr. Ekta Funk IG # 0.09 10e3/ul Critically high 0.00-0.03 [facility] Comment on above: Performed By: #### B 12FOL, VITAD, IRON #### [facility] [address] [place] [address] Dr. Ekta Funk IG % 0.8 % Critically high 0.0-0.[address] [facility] Comment on above: Performed By: #### B 12FOL, VITAD, IRON #### [facility] [address] [place] [address] Dr. Ekta Funk LYMPH # 1.8 103/ul Normal 1.2-3.8 [facility] Comment on above: Performed By: #### B 12FOL, VITAD, IRON #### [facility] [address] [place] [address] Dr. Ekta Funk Lymphocytes/100 WBC (Bld) 16.2 % Critically low 20.5-60.0 [facility] Comment on above: Performed By: #### B 12FOL, VITAD, IRON #### [facility] [address] [place] [address] Dr. Ekta Funk MANUAL DIFF REQ NO Normal [facility] Comment on above: Performed By: #### B 12FOL, VITAD, IRON #### [facility] [address] [place] [address] Dr. Ekta Funk MCH (RBC) [Entitic mass] 32.3 pg Normal 26.7-34.0 [facility] Comment on above: Performed By: #### B 12FOL, VITAD, IRON #### [facility] [address] [place] [address] Dr. Ekta Funk MCHC (RBC) [Mass/Vol] 34.3 g/dL Normal 29.9-35.2 [facility] Comment on above: Performed By: #### B 12FOL, VITAD, IRON #### [facility] [address] [place] [address] Dr. Ekta Funk MCV (RBC) [Entitic vol] 94.2 fL Normal 81.0-99.0 [facility] Comment on above: Performed By: #### B 12FOL, VITAD, IRON #### [facility] [address] [place] [address] Dr. Ekta Funk MONO # 0.8 103/ul Normal 0.3-0.8 [facility] Comment on above: Performed By: #### B 12FOL, VITAD, IRON #### [facility] [address] [place] [address] Dr. Ekta Funk Monocytes/100 WBC (Bld) 7.3 % Normal 1.7-12.0 [facility] Comment on above: Performed By: #### B 12FOL, VITAD, IRON #### [facility] [address] [place] [address] Dr. Ekta Funk NEUT # 8.1 103/ul Critically high 1.4-6.[address] [facility] Comment on above: Performed By: #### B 12FOL, VITAD, IRON #### [facility] [address] [place] [address] Dr. Ekta Funk Neutrophils/100 WBC (Bld) 74.8 % Normal 43.0-75.0 [facility] Comment on above: Performed By: #### B 12FOL, VITAD, IRON #### [facility] [address] [place] [address] Dr. Ekta Funk Platelet mean volume (Bld) [Entitic vol] 9.8 fL Normal 9.5-13.5 [facility] Comment on above: Performed By: #### B 12FOL, VITAD, IRON #### [facility] [address] [place] [address] Dr. Ekta Funk PLT 226 103/ul Normal 150-450 [facility] Comment on above: Performed By: #### B 12FOL, VITAD, IRON #### [facility] [address] [place] [address] Dr. Ekta Funk RBC 4.33 106/ul Normal 4.20-5.40 [facility] Comment on above: Performed By: #### B 12FOL, VITAD, IRON #### [facility] [address] [place] [address] Dr. Ekta Funk WBC 10.9 103/ul Normal 4.0-11.0 [facility] Comment on above: Performed By: #### B 12FOL, VITAD, IRON #### [facility] [address] [place] [address] Dr. Ekta Funk PROF 14(COMP METB)on 023 Albumin [Mass/Vol] 3.1 g/dL Critically low 3.4-5.0 [facility] Comment on above: Performed By: #### B 12FOL, VITAD, IRON #### [facility] [address] [place] [address] Dr. Ekta Funk Albumin/Globulin [Mass ratio] 0.7 {ratio} Normal [facility] Comment on above: Performed By: #### B 12FOL, VITAD, IRON #### [facility] [address] [place] [address] Dr. Ekta Funk ALP [Catalytic activity/Vol] 81 U/L Normal 46-116 [facility] Comment on above: Performed By: #### B 12FOL, VITAD, IRON #### [facility] [address] [place] [address] Dr. Ekta Funk ALT [Catalytic activity/Vol] 30 U/L Normal 14-59 [facility] Comment on above: Performed By: #### B 12FOL, VITAD, IRON #### [facility] [address] [place] [address] Dr. Ekta Funk Anion gap [Moles/Vol] 17.3 mmol/L Normal [facility] Comment on above: Performed By: #### B 12FOL, VITAD, IRON #### [facility] [address] [place] [address] Dr. Ekta Funk AST [Catalytic activity/Vol] 11 U/L Critically low 15-37 [facility] Comment on above: Performed By: #### B 12FOL, VITAD, IRON #### [facility] [address] [place] [address] Dr. Ekta Funk Bilirubin [Mass/Vol] 0.5 mg/dL Normal 0.2-1.0 [facility] Comment on above: Performed By: #### B 12FOL, VITAD, IRON #### [facility] [address] [address] [address] Ekta Funk Calcium [Mass/Vol] 8.6 mg/dL Normal 8.5-10.1 [facility] Comment on above: Performed By: #### B 12FOL, VITAD, IRON #### [facility] [address] [address] [address] Ekta Funk Chloride [Moles/Vol] 95 mmol/L Critically low 98-107 [facility] Comment on above: Performed By: #### B 12FOL, VITAD, IRON #### [facility] [address] [address] [address] Ekta Funk CO2 [Moles/Vol] 27.3 mmol/L Normal 21.0-32.0 [facility] Comment on above: Performed By: #### B 12FOL, VITAD, IRON #### [facility] [address] [address] [address] Ekat Funk Creatinine [Mass/Vol] 3.17 mg/dL Critically high 0.55-1.02 [facility] Comment on above: Performed By: #### B 12FOL, VITAD, IRON #### [facility] [address] [address] [address] Ekta Funk EGFR-AF [place] 17 mL/min/1.73m2 Critically low >=60 [facility] Comment on above: Performed By: #### B 12FOL, VITAD, IRON #### [facility] [address] [address] [address] Ekta Funk EGFR-NON AF [place] 14 mL/min/1.73m2 Critically low >=60 [facility] Comment on above: Performed By: #### B 12FOL, VITAD, IRON #### [facility] [address] [address] [address] Ekta Funk Globulin (S) [Mass/Vol] 4.6 g/dL Normal [facility] Comment on above: Performed By: #### B 12FOL, VITAD, IRON #### [facility] [address] [address] [address] Ekta Funk Glucose [Mass/Vol] 139 mg/dL Critically high 74-106 [facility] Comment on above: Performed By: #### B 12FOL, VITAD, IRON #### [facility] [address] [address] [address] Ekta Funk Potassium [Moles/Vol] 4.6 mmol/L Normal 3.5-5.1 [facility] Comment on above: Performed By: #### B 12FOL, VITAD, IRON #### [facility] [address] [place] [address] Dr. Ekta Funk Protein [Mass/Vol] 7.7 g/dL Normal 6.4-8.2 [facility] Comment on above: Performed By: #### B 12FOL, VITAD, IRON #### [facility] [address] [place] [address] Dr. Ekta Funk Sodium [Moles/Vol] 135 mmol/L Critically low 136-145 [facility] Comment on above: Performed By: #### B 12FOL, VITAD, IRON #### [facility] [address] [place] [address] Dr. Ekta Funk Urea nitrogen [Mass/Vol] 73.0 mg/dL Critically high 7.0-18.0 [facility] Comment on above: Performed By: #### B 12FOL, VITAD, IRON #### [facility] [address] [place] [address] Dr. Ekta Funk Urea nitrogen/Creatinine [Mass ratio] 23.0 mg/mg Normal [facility] Comment on above: Performed By: #### B 12FOL, VITAD, IRON #### [facility] [address] [place] [address] Dr. Ekta Funk BNPon 10-21-2022 Natriuretic peptide B (Bld) [Mass/Vol] 2007.0 pg/mL Critically high <=900.0 [facility] Comment on above: Performed By: #### C MP #### [facility] [address] [address] [address] Ekta Funk CBC AUTO DIFFon 10-21-2022 BASO # 0.0 103/ul Normal 0.0-0.1 [facility] Comment on above: Performed By: #### C BC #### [facility] [address] [address] [address] Ekta Funk Basophils/100 WBC (Bld) 0.2 % Normal 0.2-2.0 [facility] Comment on above: Performed By: #### C BC #### [facility] [address] [place] [address] Dr. Ekta Funk EO # 0.1 103/ul Normal 0.0-0.7 [facility] Comment on above: Performed By: #### C BC #### [facility] [address] [place] [address] Dr. Ekta Funk Eosinophils/100 WBC (Bld) 0.9 % Normal 0.9-7.0 [facility] Comment on above: Performed By: #### C BC #### [facility] [address] [place] [address] Dr. Ekta Funk Erythrocyte distribution width (RBC) [Ratio] 12.8 % Normal 11.0-15.0 [facility] Comment on above: Performed By: #### C BC #### [facility] [address] [place] [address] Dr. Ekta Funk Hematocrit (Bld) [Volume fraction] 38.8 % Normal 36.0-48.0 [facility] Comment on above: Performed By: #### C BC #### [facility] [address] [place] [address] Dr. Ekta Funk Hemoglobin (Bld) [Mass/Vol] 13.3 g/dL Normal 12.0-16.0 [facility] Comment on above: Performed By: #### C BC #### [facility] [address] [place] [address] Dr. Ekta Funk IG # 0.08 10e3/ul Critically high 0.00-0.03 [facility] Comment on above: Performed By: #### C BC #### [facility] [address] [place] [address] Dr. Ekta Funk IG % 0.8 % Critically high 0.0-0.5 [facility] Comment on above: Performed By: #### C BC #### [facility] [address] [place] [address] Dr. Ekta Funk LYMPH # 1.7 103/ul Normal 1.2-3.8 [facility] Comment on above: Performed By: #### C BC #### [facility] [address] [place] [address] Dr. Ekta Funk Lymphocytes/100 WBC (Bld) 17.3 % Critically low 20.5-60.0 [facility] Comment on above: Performed By: #### C BC #### [facility] [address] [place] [address] Dr. Ekta Funk MANUAL DIFF REQ NO Normal [facility] Comment on above: Performed By: #### C BC #### [facility] [address] [place] [address] Dr. Ekta Funk MCH (RBC) [Entitic mass] 32.1 pg Normal 26.7-34.0 [facility] Comment on above: Performed By: #### C BC #### [facility] [address] [place] [address] Dr. Ekta Funk MCHC (RBC) [Mass/Vol] 34.3 g/dL Normal 29.9-35.2 [facility] Comment on above: Performed By: #### C BC #### [facility] [address] [place] [address] Dr. Ekta Funk MCV (RBC) [Entitic vol] 93.7 fL Normal 81.0-99.0 [facility] Comment on above: Performed By: #### C BC #### [facility] [address] [place] [address] Dr. Ekta Funk MONO # 0.6 103/ul Normal 0.3-0.8 [facility] Comment on above: Performed By: #### C BC #### [facility] [address] [address] [address] Ekta Funk Monocytes/100 WBC (Bld) 6.4 % Normal 1.7-12.0 [facility] Comment on above: Performed By: #### C BC #### [facility] [address] [address] [address] Ekta Funk NEUT # 7.4 103/ul Critically high 1.4-6.5 [facility] Comment on above: Performed By: #### C BC #### [facility] [address] [address] [address] Ekta Funk Neutrophils/100 WBC (Bld) 74.4 % Normal 43.0-75.0 [facility] Comment on above: Performed By: #### C BC #### [facility] [address] [address] [address] Ekta Funk Platelet mean volume (Bld) [Entitic vol] 9.8 fL Normal 9.5-13.5 [facility] Comment on above: Performed By: #### C BC #### [facility] [address] [address] [address] Ekta Funk PLT 193 103/ul Normal 150-450 [facility] Comment on above: Performed By: #### C BC #### [facility] [address] [place] [address] Dr. Ekta Funk RBC 4.14 106/ul Critically low 4.20-5.40 [facility] Comment on above: Performed By: #### C BC #### [facility] [address] [address] [address] Ekta Funk WBC 9.9 103/ul Normal 4.0-11.0 [facility] Comment on above: Performed By: #### C BC #### [facility] [address] [address] [address] Ekta Funk PROF 14(COMP METB)on 023 Albumin [Mass/Vol] 3.2 g/dL Critically low 3.4-5.0 [facility] Comment on above: Performed By: #### I NSULIN #### [facility] [address] [address] [address] Ekta Funk Albumin/Globulin [Mass ratio] 0.8 {ratio} Normal [facility] Comment on above: Performed By: #### I NSULIN #### [facility] [address] [address] [address] Ekta Funk ALP [Catalytic activity/Vol] 82 U/L Normal 46-116 [facility] Comment on above: Performed By: #### I NSULIN #### [facility] [address] [address] [address] Ekta Funk ALT [Catalytic activity/Vol] 38 U/L Normal 14-59 [facility] Comment on above: Performed By: #### I NSULIN #### [facility] [address] [place] [address] Dr. Ekta Funk Anion gap [Moles/Vol] 19.1 mmol/L Normal [facility] Comment on above: Performed By: #### I NSULIN #### [facility] [address] [place] [address] Dr. Ekta Funk AST [Catalytic activity/Vol] 19 U/L Normal 15-37 [facility] Comment on above: Performed By: #### I NSULIN #### [facility] [address] [place] [address] Dr. Ekta Funk Bilirubin [Mass/Vol] 0.4 mg/dL Normal 0.2-1.0 [facility] Comment on above: Performed By: #### I NSULIN #### [facility] [address] [place] [address] Dr. Ekta Funk Calcium [Mass/Vol] 9.2 mg/dL Normal 8.5-10.1 [facility] Comment on above: Performed By: #### I NSULIN #### [facility] [address] [address] [address] Ekta Funk Chloride [Moles/Vol] 98 mmol/L Normal 98-107 [facility] Comment on above: Performed By: #### I NSULIN #### [facility] [address] [address] [address] Ekta Funk CO2 [Moles/Vol] 26.4 mmol/L Normal 21.0-32.0 [facility] Comment on above: Performed By: #### I NSULIN #### [facility] [address] [address] [address] Ekta Funk Creatinine [Mass/Vol] 2.20 mg/dL Critically high 0.55-1.02 [facility] Comment on above: Performed By: #### I NSULIN #### [facility] [address] [address] [address] Ekta Funk EGFR-AF [place] 26 mL/min/1.73m2 Critically low >=60 [facility] Comment on above: Performed By: #### I NSULIN #### [facility] [address] [address] [address] Ekta Funk EGFR-NON AF [place] 22 mL/min/1.73m2 Critically low >=60 [facility] Comment on above: Performed By: #### I NSULIN #### [facility] [address] [address] [address] Ekta Funk Globulin (S) [Mass/Vol] 3.8 g/dL Normal [facility] Comment on above: Performed By: #### I NSULIN #### [facility] [address] [address] [address] Ekta Funk Glucose [Mass/Vol] 142 mg/dL Critically high 74-106 [facility] Comment on above: Performed By: #### I NSULIN #### [facility] [address] [address] [address] Ekta Funk Potassium [Moles/Vol] 4.5 mmol/L Normal 3.5-5.1 [facility] Comment on above: Performed By: #### I NSULIN #### [facility] [address] [address] [address] Ekta Funk Protein [Mass/Vol] 7.0 g/dL Normal 6.4-8.2 [facility] Comment on above: Performed By: #### I NSULIN #### [facility] [address] [address] [address] Ekta Funk Sodium [Moles/Vol] 139 mmol/L Normal 136-145 [facility] Comment on above: Performed By: #### I NSULIN #### [facility] [address] [address] [address] Ekta Funk Urea nitrogen [Mass/Vol] 57.0 mg/dL Critically high 7.0-18.0 [facility] Comment on above: Performed By: #### I NSULIN #### [facility] [address] [address] [address] Ekta Funk Urea nitrogen/Creatinine [Mass ratio] 25.9 mg/mg Normal [facility] Comment on above: Performed By: #### I NSULIN #### [facility] [address] [address] [address] Ekta Funk T3, TOTAL (TRIIODOTHYRONINE) on 10-21-2022 T3, TOTAL 63 ng/dL Critically low 71-180 [facility] Comment on above: Performed By: #### C MP #### [facility] [address] [address] [address] Ekta Funk XR ABD FLAT_UPon 10-21-2022 [...] by: DANIEL PINEDA Date: 2022-10-21 11:42 Normal [facility] XR CHEST 2 Von 10-21-2022 XR [...] CHRISTIANO MORALES Date: 2022-10-21 11:23 Normal [facility] BNPon 10-20-2022 Natriuretic peptide B (Bld) [Mass/Vol] 2512.0 pg/mL Critically high <=900.0 [facility] Comment on above: Performed By: #### B 12FOL, VITAD, IRON #### [facility] [address] [address] [address] Ekta Funk CARDIAC BRITTANIE ADMITon 023 CK [Catalytic activity/Vol] 35 U/L Normal 26-192 [facility] Comment on above: Performed By: #### B 12FOL, VITAD, IRON #### [facility] [address] [place] [address] Dr. Ekta Funk CK.MB [Mass/Vol] 0.64 ng/mL Normal <=3.60 [facility] Comment on above: Performed By: #### B 12FOL, VITAD, IRON #### [facility] [address] [address] [address] Ekta Funk HSTROP 28.1 pg/mL Normal 4.0-51.3 [facility] Comment on above: Result Comment: CUT- OFF POINTS HAVE BEEN ESTABLISHED BASED ON THE FOURTH UNIVERSAL DEFINITIONS OF MYOCARDIAL INFARCTION. THE UPPER REFERENCE LIMIT (URL) OF TROPONIN, DEFINED THE 99TH PERCENTILE OF cTnI DISTRIBUTION IN A REFERENCE POPULATION, HAS BEEN CONFIRMED THE DECISION THRESHOLD FOR SC DIAGNOSIS. Performed By: #### B 12FOL, VITAD, IRON #### [facility] [address] [place] [address] Dr. Ekta Funk EVELYN 57 ng/mL Normal 9-82 [facility] Comment on above: Performed By: #### B 12FOL, VITAD, IRON #### [facility] [address] [address] [address] Ekta Funk CBC AUTO DIFFon 10-20-2022 BASO # 0.0 103/ul Normal 0.0-0.1 [facility] Comment on above: Performed By: #### C BC #### [facility] [address] [address] [address] Ekta Funk Basophils/100 WBC (Bld) 0.2 % Normal 0.2-2.0 [facility] Comment on above: Performed By: #### C BC #### [facility] [address] [address] [address] Ekta Funk EO # 0.2 103/ul Normal 0.0-0.7 [facility] Comment on above: Performed By: #### C BC #### [facility] [address] [address] [address] Ekta Funk Eosinophils/100 WBC (Bld) 1.4 % Normal 0.9-7.0 [facility] Comment on above: Performed By: #### C BC #### [facility] [address] [address] [address] Ekta Funk Erythrocyte distribution width (RBC) [Ratio] 12.9 % Normal 11.0-15.0 [facility] Comment on above: Performed By: #### C BC #### [facility] [address] [address] [address] Ekta Funk Hematocrit (Bld) [Volume fraction] 34.7 % Critically low 36.0-48.0 [facility] Comment on above: Performed By: #### C BC #### [facility] [address] [address] [address] Ekta Funk Hemoglobin (Bld) [Mass/Vol] 11.8 g/dL Critically low 12.0-16.0 [facility] Comment on above: Performed By: #### C BC #### [facility] [address] [address] [address] Ekta Funk IG # 0.09 10e3/ul Critically high 0.00-0.03 [facility] Comment on above: Performed By: #### C BC #### [facility] [address] [address] [address] Ekta Funk IG % 0.8 % Critically high 0.0-0.[address] [facility] Comment on above: Performed By: #### C BC #### [facility] [address] [address] [address] Ekta Funk LYMPH # 1.9 103/ul Normal 1.2-3.8 [facility] Comment on above: Performed By: #### C BC #### [facility] [address] [place] [address] Dr. Ekta Funk Lymphocytes/100 WBC (Bld) 16.1 % Critically low 20.5-60.0 [facility] Comment on above: Performed By: #### C BC #### [facility] [address] [place] [address] Dr. Ekta Funk MANUAL DIFF REQ NO Normal [facility] Comment on above: Performed By: #### C BC #### [facility] [address] [place] [address] Dr. Ekta Funk MCH (RBC) [Entitic mass] 32.6 pg Normal 26.7-34.0 [facility] Comment on above: Performed By: #### C BC #### [facility] [address] [place] [address] Dr. Ekta Funk MCHC (RBC) [Mass/Vol] 34.0 g/dL Normal 29.9-35.2 [facility] Comment on above: Performed By: #### C BC #### [facility] [address] [place] [address] Dr. Ekta Funk MCV (RBC) [Entitic vol] 95.9 fL Normal 81.0-99.0 [facility] Comment on above: Performed By: #### C BC #### [facility] [address] [place] [address] Dr. Ekta Funk MONO # 0.8 103/ul Normal 0.3-0.8 [facility] Comment on above: Performed By: #### C BC #### [facility] [address] [place] [address] Dr. Ekta Funk Monocytes/100 WBC (Bld) 7.0 % Normal 1.7-12.0 [facility] Comment on above: Performed By: #### C BC #### [facility] [address] [place] [address] Dr. Ekta Funk NEUT # 8.8 103/ul Critically high 1.4-6.5 [facility] Comment on above: Performed By: #### C BC #### [facility] [address] [place] [address] Dr. Ekta Funk Neutrophils/100 WBC (Bld) 74.5 % Normal 43.0-75.0 [facility] Comment on above: Performed By: #### C BC #### [facility] [address] [place] [address] Dr. Ekta Funk Platelet mean volume (Bld) [Entitic vol] 9.8 fL Normal 9.5-13.5 [facility] Comment on above: Performed By: #### C BC #### [facility] [address] [place] [address] Dr. Ekta Funk PLT 203 103/ul Normal 150-450 [facility] Comment on above: Performed By: #### C BC #### [facility] [address] [place] [address] Dr. Ekta Funk RBC 3.62 106/ul Critically low 4.20-5.[address] [facility] Comment on above: Performed By: #### C BC #### [facility] [address] [place] [address] Dr. Ekta Funk WBC 11.8 103/ul Critically high 4.0-11.0 [facility] Comment on above: Performed By: #### C BC #### [facility] [address] [place] [address] Dr. Ekta Funk CULTURE URINEon 10-20-2022 CULTURE URINE Culture Observations: NO GROWTH. Normal [facility] Comment on above: Performed By: #### I NSULIN #### [facility] [address] [place] [address] Dr. Ekta Funk [facility] SARS-CoV-2 (COVID-19) RNA GANESH+probe Ql (Unsp spec) Not detected Normal NOT DETECTED [facility] Comment on above: Result Comment: [...] for this test is supported by the Second Watch [employer] of Health and Human Service's declaration that [...] By: #### B 12FOL, VITAD, IRON #### [facility] [address] [place] [address] Dr. Ekta Funk ECHOCARDIO M/2D COMPLETEon 0 10-20-2022 ECHOCARDIO M/2D COMPLETE Patient: SHEILA MAC Exam Date: 10/20/2022 : 1950 Gender:F Ordering : DR KRZYSZTOF THOMPSON . Admission #: [id number] Family : Order #: [id number] CLICK HERE TO VIEW EXAM ECHOCARDIOGRAM REPORT [...] Pressure: 34.67 ml, 34.67 ml Dictated by: Slywia Mckay M.D. on 10/20/2022 at 14:52 Approved by: Sylwia Mckay M.D. on 10/20/2022 at 14:57 Normal [facility] PROF 14(COMP METB)on 023 Albumin [Mass/Vol] 2.8 g/dL Critically low 3.4-5.0 [facility] Comment on above: Performed By: #### B 12FOL, VITAD, IRON #### [facility] [address] [place] [address] Dr. Ekta Funk Albumin/Globulin [Mass ratio] 0.7 {ratio} Normal [facility] Comment on above: Performed By: #### B 12FOL, VITAD, IRON #### [facility] [address] [place] [address] Dr. Ekta Funk ALP [Catalytic activity/Vol] 84 U/L Normal 46-116 [facility] Comment on above: Performed By: #### B 12FOL, VITAD, IRON #### [facility] [address] [place] [address] Dr. Ekta Funk ALT [Catalytic activity/Vol] 29 U/L Normal 14-59 [facility] Comment on above: Performed By: #### B 12FOL, VITAD, IRON #### [facility] [address] [address] [address] Ekta Funk Anion gap [Moles/Vol] 15.9 mmol/L Normal [facility] Comment on above: Performed By: #### B 12FOL, VITAD, IRON #### [facility] [address] [place] [address] Dr. Ekta Funk AST [Catalytic activity/Vol] 15 U/L Normal 15-37 [facility] Comment on above: Performed By: #### B 12FOL, VITAD, IRON #### [facility] [address] [place] [address] Dr. Ekta Funk Bilirubin [Mass/Vol] 0.3 mg/dL Normal 0.2-1.0 [facility] Comment on above: Performed By: #### B 12FOL, VITAD, IRON #### [facility] [address] [place] [address] Dr. Ekta Funk Calcium [Mass/Vol] 8.9 mg/dL Normal 8.5-10.1 [facility] Comment on above: Performed By: #### B 12FOL, VITAD, IRON #### [facility] [address] [place] [address] Dr. Ekta Fukn Chloride [Moles/Vol] 103 mmol/L Normal 98-107 [facility] Comment on above: Performed By: #### B 12FOL, VITAD, IRON #### [facility] [address] [place] [address] Dr. Ekta Funk CO2 [Moles/Vol] 26.3 mmol/L Normal 21.0-32.0 [facility] Comment on above: Performed By: #### B 12FOL, VITAD, IRON #### [facility] [address] [place] [address] Dr. Ekta Funk Creatinine [Mass/Vol] 1.99 mg/dL Critically high 0.55-1.02 [facility] Comment on above: Performed By: #### B 12FOL, VITAD, IRON #### [facility] [address] [place] [address] Dr. Ekta Funk EGFR-AF [place] 30 mL/min/1.73m2 Critically low >=60 [facility] Comment on above: Performed By: #### B 12FOL, VITAD, IRON #### [facility] [address] [place] [address] Dr. Ekta Funk EGFR-NON AF [place] 24 mL/min/1.73m2 Critically low >=60 [facility] Comment on above: Performed By: #### B 12FOL, VITAD, IRON #### [facility] [address] [place] [address] Dr. Ekta Funk Globulin (S) [Mass/Vol] 4.1 g/dL Normal [facility] Comment on above: Performed By: #### B 12FOL, VITAD, IRON #### [facility] [address] [address] [address] Ekta Funk Glucose [Mass/Vol] 115 mg/dL Critically high 74-106 [facility] Comment on above: Performed By: #### B 12FOL, VITAD, IRON #### [facility] [address] [address] [address] Ekta Funk Potassium [Moles/Vol] 5.2 mmol/L Critically high 3.5-5.1 [facility] Comment on above: Performed By: #### B 12FOL, VITAD, IRON #### [facility] [address] [place] [address] Dr. Ekta Funk Protein [Mass/Vol] 6.9 g/dL Normal 6.4-8.[address] [facility] Comment on above: Performed By: #### B 12FOL, VITAD, IRON #### [facility] [address] [place] [address] Dr. Ekta Funk Sodium [Moles/Vol] 140 mmol/L Normal 136-[address] [facility] Comment on above: Performed By: #### B 12FOL, VITAD, IRON #### [facility] [address] [place] [address] Dr. Ekta Funk Urea nitrogen [Mass/Vol] 45.0 mg/dL Critically high 7.0-18.0 [facility] Comment on above: Performed By: #### B 12FOL, VITAD, IRON #### [facility] [address] [place] [address] Dr. Ekta Funk Urea nitrogen/Creatinine [Mass ratio] 22.6 mg/mg Normal [facility] Comment on above: Performed By: #### B 12FOL, VITAD, IRON #### [facility] [address] [place] [address] Dr. Ekta Funk T4on 10-20-2022 T4 [Mass/Vol] 6.10 ug/dL Normal 4.80-13.90 [facility] Comment on above: Performed By: #### B 12FOL, VITAD, IRON #### [facility] [address] [place] [address] Dr. Ekta Funk TSHon 10-20-2022 TSH 1.336 uIU/mL Normal 0.358-3.740 [facility] Comment on above: Performed By: #### B 12FOL, VITAD, IRON #### [facility] [address] [place] [address] Dr. Ekta Funk UA RANDOM W/MICROSCOPICon BACTERIA TRACE Abnormal NONE SEEN [facility] Comment on above: Performed By: #### B 12FOL, VITAD, IRON #### [facility] [address] [place] [address] Dr. Ekta Funk Bilirubin Ql (U) Negative Normal NEGATIVE [facility] Comment on above: Performed By: #### B 12FOL, VITAD, IRON #### [facility] [address] [place] [address] Dr. kEta Funk CAST NONE SEEN Normal NONE SEEN [facility] Comment on above: Performed By: #### B 12FOL, VITAD, IRON #### [facility] [address] [place] [address] Dr. Ekta Funk Clarity (U) CLEAR Normal CLEAR [facility] Comment on above: Performed By: #### B 12FOL, VITAD, IRON #### [facility] [address] [place] [address] Dr. Ekta Funk Color (U) LT. YELLOW Normal YELLOW [facility] Comment on above: Performed By: #### B 12FOL, VITAD, IRON #### [facility] [address] [place] [address] Dr. Ekta Funk Crystals LM Nom (Urine sed) NONE SEEN Normal NONE SEEN [facility] Comment on above: Performed By: #### B 12FOL, VITAD, IRON #### [facility] [address] [place] [address] Dr. Ekta Funk Epithelial cells LM Ql (Urine sed) RARE Normal NONE SEEN /RARE [facility] Comment on above: Performed By: #### B 12FOL, VITAD, IRON #### [facility] [address] [address] [address] Ekta Funk Glucose Ql (U) Negative Normal NEGATIVE [facility] Comment on above: Performed By: #### B 12FOL, VITAD, IRON #### [facility] [address] [place] [address] Dr. Ekta Funk Hemoglobin Ql (U) Negative Normal NEGATIVE [facility] Comment on above: Performed By: #### B 12FOL, VITAD, IRON #### [facility] [address] [place] [address] Dr. Ekta Funk Ketones Ql (U) Negative Normal NEGATIVE [facility] Comment on above: Performed By: #### B 12FOL, VITAD, IRON #### [facility] [address] [place] [address] Dr. Ekta Funk LEUKOCYTES Negative Normal NEGATIVE [facility] Comment on above: Performed By: #### B 12FOL, VITAD, IRON #### [facility] [address] [place] [address] Dr. Ekta Funk MUCOUS NONE SEEN Normal NONE SEEN [facility] Comment on above: Performed By: #### B 12FOL, VITAD, IRON #### [facility] [address] [place] [address] Dr. Ekta Funk Nitrite Ql (U) Negative Normal NEGATIVE [facility] Comment on above: Performed By: #### B 12FOL, VITAD, IRON #### [facility] [address] [place] [address] Dr. Ekta Funk pH (U) 6.0 [pH] Normal 5-9 [facility] Comment on above: Performed By: #### B 12FOL, VITAD, IRON #### [facility] [address] [place] [address] Dr. Ekta Funk RBC 0-2 Normal 0-2 [facility] Comment on above: Performed By: #### B 12FOL, VITAD, IRON #### [facility] [address] [place] [address] Dr. Ekta Funk SPEC GRAVITY <=1.005 Abnormal 1.005-<=1.[address] [facility] Comment on above: Performed By: #### B 12FOL, VITAD, IRON #### [facility] [address] [place] [address] Dr. Ekta Funk UA PROTEIN Negative Normal NEGATIVE/ TRACE [facility] Comment on above: Performed By: #### B 12FOL, VITAD, IRON #### [facility] [address] [address] [address] Ekta Funk Urobilinogen Qn (U) 0.2 {Ivan'U}/dL Normal 0.2 - 1. 0 [facility] Comment on above: Performed By: #### B 12FOL, VITAD, IRON #### [facility] [address] [place] [address] Dr. Ekta Funk WBC NONE SEEN Normal NONE SEEN [facility] Comment on above: Performed By: #### B 12FOL, VITAD, IRON #### [facility] [address] [place] [address] Dr. Ekta Funk BNPon 10-19-2022 Natriuretic peptide B (Bld) [Mass/Vol] 1355.0 pg/mL Critically high <=900.0 [facility] Comment on above: Performed By: #### B 12FOL, VITAD, IRON #### [facility] [address] [place] [address] Dr. Ekta Funk INSULINon 10-19-2022 Insulin 12.4 uIU/mL Normal 2.6-24.9 [facility] Comment on above: Performed By: #### I NSULIN #### [facility] [address] [place] [address] Dr. Ekta Funk OCC BLD IMMUNO SCREENon OCCULT BLOOD Positive Abnormal NEGATIVE [facility] Comment on above: Performed By: #### B 12FOL, VITAD, IRON #### [facility] [address] [place] [address] Dr. Ekta Funk PROF CHEM 8 (BAS METB)on Anion gap [Moles/Vol] 15.8 mmol/L Normal [facility] Comment on above: Performed By: #### B 12FOL, VITAD, IRON #### [facility] [address] [place] [address] Dr. Ekta Funk Calcium [Mass/Vol] 8.8 mg/dL Normal 8.5-10.1 [facility] Comment on above: Performed By: #### B 12FOL, VITAD, IRON #### [facility] [address] [place] [address] Dr. Ekta Funk Chloride [Moles/Vol] 107 mmol/L Normal 98-107 [facility] Comment on above: Performed By: #### B 12FOL, VITAD, IRON #### [facility] [address] [place] [address] Dr. Ekta Funk CO2 [Moles/Vol] 21.5 mmol/L Normal 21.0-32.0 [facility] Comment on above: Performed By: #### B 12FOL, VITAD, IRON #### [facility] [address] [place] [address] Dr. Ekta Funk Creatinine [Mass/Vol] 1.62 mg/dL Critically high 0.55-1.02 [facility] Comment on above: Performed By: #### B 12FOL, VITAD, IRON #### [facility] [address] [place] [address] Dr. Ekta Funk EGFR-AF [place] 38 mL/min/1.73m2 Critically low >=60 [facility] Comment on above: Performed By: #### B 12FOL, VITAD, IRON #### [facility] [address] [place] [address] Dr. Ekta Funk EGFR-NON AF [place] 31 mL/min/1.73m2 Critically low >=60 [facility] Comment on above: Performed By: #### B 12FOL, VITAD, IRON #### [facility] [address] [place] [address] Dr. Ekta Funk Glucose [Mass/Vol] 134 mg/dL Critically high 74-106 [facility] Comment on above: Performed By: #### B 12FOL, VITAD, IRON #### [facility] [address] [address] [address] Ekta Funk Potassium [Moles/Vol] 5.3 mmol/L Critically high 3.5-5.1 [facility] Comment on above: Performed By: #### B 12FOL, VITAD, IRON #### [facility] [address] [place] [address] Dr. Ekta Funk Sodium [Moles/Vol] 139 mmol/L Normal 136-145 [facility] Comment on above: Performed By: #### B 12FOL, VITAD, IRON #### [facility] [address] [place] [address] Dr. Ekta Funk Urea nitrogen [Mass/Vol] 37.0 mg/dL Critically high 7.0-18.0 [facility] Comment on above: Performed By: #### B 12FOL, VITAD, IRON #### [facility] [address] [place] [address] Dr. Ekta Funk Urea nitrogen/Creatinine [Mass ratio] 22.8 mg/mg Normal [facility] Comment on above: Performed By: #### B 12FOL, VITAD, IRON #### [facility] [address] [place] [address] Dr. Ekta Funk TROPONIN, HIGH SENSITIVITYon 10-19-2022 HSTROP 53.2 pg/mL Critically high 4.0-51.3 [facility] Comment on above: Result Comment: CUT- OFF POINTS HAVE BEEN ESTABLISHED BASED ON THE FOURTH UNIVERSAL DEFINITIONS OF MYOCARDIAL INFARCTION. THE UPPER REFERENCE LIMIT (URL) OF TROPONIN, DEFINED THE 99TH PERCENTILE OF cTnI DISTRIBUTION IN A REFERENCE POPULATION, HAS BEEN CONFIRMED THE DECISION THRESHOLD FOR SC DIAGNOSIS. Performed By: #### B 12FOL, VITAD, IRON #### [facility] [address] [place] [address] Dr. Ekta Funk BNPon 10-18-2022 Natriuretic peptide B (Bld) [Mass/Vol] 1386.0 pg/mL Critically high <=900.0 [facility] Comment on above: Performed By: #### C VDTBH #### [facility] [address] [address] [address] kEta Funk CARDIAC BRITTANIE ADMITon 023 CK [Catalytic activity/Vol] 34 U/L Normal 26-192 [facility] Comment on above: Performed By: #### C VDTBH #### [facility] [address] [place] [address] Dr. Ekta Funk CK.MB [Mass/Vol] 1.43 ng/mL Normal <=3.60 [facility] Comment on above: Performed By: #### C VDTBH #### [facility] [address] [place] [address] Dr. Ekta Funk HSTROP 74.1 pg/mL Critically high 4.0-51.[address] [facility] Comment on above: Result Comment: CUT- OFF POINTS HAVE BEEN ESTABLISHED BASED ON THE FOURTH UNIVERSAL DEFINITIONS OF MYOCARDIAL INFARCTION. THE UPPER REFERENCE LIMIT (URL) OF TROPONIN, DEFINED THE 99TH PERCENTILE OF cTnI DISTRIBUTION IN A REFERENCE POPULATION, HAS BEEN CONFIRMED THE DECISION THRESHOLD FOR SC DIAGNOSIS. Performed By: #### C VDTBH #### [facility] [address] [place] [address] Dr. Ekta Funk EVELYN 52 ng/mL Normal 9-82 [facility] Comment on above: Performed By: #### C VDTBH #### [facility] [address] [place] [address] Dr. Ekta Funk CBC AUTO DIFFon 10-18-2022 BASO # 0.0 103/ul Normal 0.0-0.1 [facility] Comment on above: Performed By: #### C BC #### [facility] [address] [place] [address] Dr. Ekta Funk Basophils/100 WBC (Bld) 0.3 % Normal 0.2-2.0 [facility] Comment on above: Performed By: #### C BC #### [facility] [address] [place] [address] Dr. Ekta Funk EO # 0.1 103/ul Normal 0.0-0.7 [facility] Comment on above: Performed By: #### C BC #### [facility] [address] [place] [address] Dr. Ekta Funk Eosinophils/100 WBC (Bld) 0.9 % Normal 0.9-7.0 [facility] Comment on above: Performed By: #### C BC #### [facility] [address] [place] [address] Dr. Ekta Funk Erythrocyte distribution width (RBC) [Ratio] 13.2 % Normal 11.0-15.0 [facility] Comment on above: Performed By: #### C BC #### [facility] [address] [place] [address] Dr. Ekta Funk Hematocrit (Bld) [Volume fraction] 38.9 % Normal 36.0-48.0 [facility] Comment on above: Performed By: #### C BC #### [facility] [address] [place] [address] Dr. Ekta Funk Hemoglobin (Bld) [Mass/Vol] 12.4 g/dL Normal 12.0-16.0 [facility] Comment on above: Performed By: #### C BC #### [facility] [address] [place] [address] Dr. Ekta Funk IG # 0.08 10e3/ul Critically high 0.00-0.03 [facility] Comment on above: Performed By: #### C BC #### [facility] [address] [place] [address] Dr. Ekta Funk IG % 0.5 % Normal 0.0-0.5 [facility] Comment on above: Performed By: #### C BC #### [facility] [address] [place] [address] Dr. Ekta Funk LYMPH # 1.4 103/ul Normal 1.2-3.8 [facility] Comment on above: Performed By: #### C BC #### [facility] [address] [place] [address] Dr. Ekta Funk Lymphocytes/100 WBC (Bld) 9.6 % Critically low 20.5-60.0 [facility] Comment on above: Performed By: #### C BC #### [facility] [address] [place] [address] Dr. Ekta Funk MANUAL DIFF REQ NO Normal [facility] Comment on above: Performed By: #### C BC #### [facility] [address] [place] [address] Dr. Ekta Funk MCH (RBC) [Entitic mass] 32.3 pg Normal 26.7-34.0 [facility] Comment on above: Performed By: #### C BC #### [facility] [address] [place] [address] Dr. Ekta Funk MCHC (RBC) [Mass/Vol] 31.9 g/dL Normal 29.9-35.2 [facility] Comment on above: Performed By: #### C BC #### [facility] [address] [place] [address] Dr. Ekta Funk MCV (RBC) [Entitic vol] 101.3 fL Critically high 81.0-99.0 [facility] Comment on above: Performed By: #### C BC #### [facility] [address] [place] [address] Dr. Ekta Funk MONO # 0.9 103/ul Critically high 0.3-0.[address] [facility] Comment on above: Performed By: #### C BC #### [facility] [address] [place] [address] Dr. Ekta Funk Monocytes/100 WBC (Bld) 6.3 % Normal 1.7-12.0 The [facility] Comment on above: Performed By: #### C BC #### [facility] [address] [place] [address] Dr. Ekta Funk NEUT # 12.0 103/ul Critically high 1.4-6.5 The [facility] Comment on above: Performed By: #### C BC #### [facility] [address] [place] [address] Dr. Ekta Funk Neutrophils/100 WBC (Bld) 82.4 % Critically high 43.0-75.0 [facility] Comment on above: Performed By: #### C BC #### [facility] [address] [address] [address] Ekta Funk Platelet mean volume (Bld) [Entitic vol] 9.7 fL Normal 9.5-13.5 [facility] Comment on above: Performed By: #### C BC #### [facility] [address] [address] [address] Ekta Funk PLT 176 103/ul Normal 150-450 [facility] Comment on above: Performed By: #### C BC #### [facility] [address] [address] [address] Ekta Funk RBC 3.84 106/ul Critically low 4.20-5.40 [facility] Comment on above: Performed By: #### C BC #### [facility] [address] [address] [address] Ekta Funk WBC 14.6 103/ul Critically high 4.0-11.0 [facility] Comment on above: Performed By: #### C BC #### [facility] [address] [address] [address] Ekta Funk FREE THYROXINE INDEX T7on FTI 2.34 Normal 1.30-4.50 [facility] Comment on above: Performed By: #### C VDTBH #### [facility] [address] [place] [address] Dr. Ekta Funk T3U 36.0 % Normal 30.0-39.0 [facility] Comment on above: Performed By: #### C VDTBH #### [facility] [address] [address] [address] Ekta Funk T4 [Mass/Vol] 6.50 ug/dL Normal 4.80-13.90 [facility] Comment on above: Performed By: #### C VDTBH #### [facility] [address] [place] [address] Dr. Ekta Funk GLYCOHEMOGLOBIN A1Con 2022 ADA RECOMMENDATION SEE BELOW Normal The [facility] Comment on above: Result Comment: ADA RECOMMENDED LIMIT 4.0 - 6.0 ADA THERAPEUTIC TARGET < 7.0 ACTION SUGGESTED > 7.0 Performed By: #### B 12FOL, VITAD, IRON #### [facility] [address] [address] [address] Ekta Funk Glucose [Mass/Vol] 140 mg/dL Normal [facility] Comment on above: Performed By: #### B 12FOL, VITAD, IRON #### [facility] [address] [address] [address] Ekta Funk HbA1c (Bld) [Mass fraction] 6.5 % Critically high 4.5-6.2 [facility] Comment on above: Performed By: #### B 12FOL, VITAD, IRON #### [facility] [address] [place] [address] Dr. Ekta Funk IRONon 10-18-2022 Iron [Mass/Vol] 62.0 ug/dL Normal 50.0-170.0 [facility] Comment on above: Performed By: #### B 12FOL, VITAD, IRON #### [facility] [address] [place] [address] Dr. Ekta Funk LIPID PROFILEon 10-18-2022 CHOL-HDL RATIO NORM SEE BELOW Normal [facility] Comment on above: Result Comment: 3.3 - 4.4 LOW RISK 4.4 - 7.1 AVERAGE RISK 7.1 - 11.0 MODERATE RISK >11.0 HIGH RISK Performed By: #### C VDTBH #### [facility] [address] [place] [address] Dr. Ekta Funk Cholesterol [Mass/Vol] 242 mg/dL Critically high <=200 [facility] Comment on above: Performed By: #### C VDTBH #### [facility] [address] [place] [address] Dr. Ekta Funk Cholesterol in HDL [Mass/Vol] 74 mg/dL Critically high 40-60 [facility] Comment on above: Performed By: #### C VDTBH #### [facility] [address] [address] [address] Ekta Funk Cholesterol in LDL [Mass/Vol] 139.4 mg/dL Normal [facility] Comment on above: Performed By: #### C VDTBH #### [facility] [address] [address] [address] Ekta Funk Cholesterol.total/Chol esterol in HDL [Mass ratio] 3.3 {ratio} Normal [facility] Comment on above: Performed By: #### C VDTBH #### [facility] [address] [address] [address] Ekta Funk HDL NORMAL > or = 60 mg/dl - LOW CARDIOVASCULAR RISK <40 mg/dl - HIGH CARDIOVASCULAR RISK Normal [facility] Comment on above: Performed By: #### C VDTBH #### [facility] [address] [place] [address] Dr. Ekta Funk LDL CALC NORMAL SEE BELOW Normal [facility] Comment on above: Result Comment: <100 mg/dl OPTIMAL 100 - 129 mg/dl NEAR OR ABOVE OPTIMAL 130 - 159 mg/dl BORDERLINE HIGH 160 - 189 mg/dl HIGH >190 mg/dl VERY HIGH Performed By: #### C VDTBH #### [facility] [address] [place] [address] Dr. Ekta Funk Triglyceride [Mass/Vol] 143 mg/dL Normal <=150 [facility] Comment on above: Performed By: #### C VDTBH #### [facility] [address] [place] [address] Dr. Ekta Funk VLDL CALC 28.6 mg/dL Normal [facility] Comment on above: Performed By: #### C VDTBH #### [facility] [address] [place] [address] Dr. Ekta Funk PROF 14(COMP METB)on 023 Albumin [Mass/Vol] 2.8 g/dL Critically low 3.4-5.0 [facility] Comment on above: Performed By: #### C VDTBH #### [facility] [address] [place] [address] Dr. Ekta Funk Albumin/Globulin [Mass ratio] 0.7 {ratio} Normal [facility] Comment on above: Performed By: #### C VDTBH #### [facility] [address] [address] [address] Ekta Funk ALP [Catalytic activity/Vol] 90 U/L Normal 46-116 [facility] Comment on above: Performed By: #### C VDTBH #### [facility] [address] [address] [address] Ekta Funk ALT [Catalytic activity/Vol] 26 U/L Normal 14-59 [facility] Comment on above: Performed By: #### C VDTBH #### [facility] [address] [address] [address] Ekta Funk Anion gap [Moles/Vol] 14.5 mmol/L Normal [facility] Comment on above: Performed By: #### C VDTBH #### [facility] [address] [place] [address] Dr. Ekta Funk AST [Catalytic activity/Vol] 14 U/L Critically low 15-37 [facility] Comment on above: Performed By: #### C VDTBH #### [facility] [address] [place] [address] Dr. Ekta Funk Bilirubin [Mass/Vol] 0.4 mg/dL Normal 0.2-1.0 [facility] Comment on above: Performed By: #### C VDTBH #### [facility] [address] [place] [address] Dr. Ekta Funk Calcium [Mass/Vol] 8.9 mg/dL Normal 8.5-10.1 [facility] Comment on above: Performed By: #### C VDTBH #### [facility] [address] [address] [address] Ekta Funk Chloride [Moles/Vol] 106 mmol/L Normal 98-107 [facility] Comment on above: Performed By: #### C VDTBH #### [facility] [address] [address] [address] Ekta Funk CO2 [Moles/Vol] 23.5 mmol/L Normal 21.0-32.0 [facility] Comment on above: Performed By: #### C VDTBH #### [facility] [address] [address] [address] Ekta Funk Creatinine [Mass/Vol] 1.70 mg/dL Critically high 0.55-1.02 [facility] Comment on above: Performed By: #### C VDTBH #### [facility] [address] [address] [address] Ekta Funk EGFR-AF [place] 36 mL/min/1.73m2 Critically low >=60 [facility] Comment on above: Performed By: #### C VDTBH #### [facility] [address] [address] [address] Ekta Funk EGFR-NON AF [place] 29 mL/min/1.73m2 Critically low >=60 [facility] Comment on above: Performed By: #### C VDTBH #### [facility] [address] [place] [address] Dr. Ekta Funk Globulin (S) [Mass/Vol] 4.0 g/dL Normal [facility] Comment on above: Performed By: #### C VDTBH #### [facility] [address] [address] [address] Ekta Funk Glucose [Mass/Vol] 99 mg/dL Normal 74-106 [facility] Comment on above: Performed By: #### C VDTBH #### [facility] [address] [place] [address] Dr. Ekta Funk Potassium [Moles/Vol] 5.0 mmol/L Normal 3.5-5.1 [facility] Comment on above: Performed By: #### C VDTBH #### [facility] [address] [address] [address] Ekta Funk Protein [Mass/Vol] 6.8 g/dL Normal 6.4-8.[address] [facility] Comment on above: Performed By: #### C VDTBH #### [facility] [address] [address] [address] Ekta Funk Sodium [Moles/Vol] 139 mmol/L Normal 136-[address] [facility] Comment on above: Performed By: #### C VDTBH #### [facility] [address] [place] [address] Dr. Ekta Funk Urea nitrogen [Mass/Vol] 36.0 mg/dL Critically high 7.0-18.0 [facility] Comment on above: Performed By: #### C VDTBH #### [facility] [address] [place] [address] Dr. Ekta Funk Urea nitrogen/Creatinine [Mass ratio] 21.2 mg/mg Normal [facility] Comment on above: Performed By: #### C VDTBH #### [facility] [address] [place] [address] Dr. Ekta Funk TSHon 10-18-2022 TSH 0.910 uIU/mL Normal 0.358-3.740 [facility] Comment on above: Performed By: #### C VDTBH #### [facility] [address] [place] [address] Dr. Ekta Funk [facility]10 SARS-CoV-2 (COVID-19) RNA GANESH+probe Ql (Unsp spec) Detected Abnormal NOT DETECTED [facility] Comment on above: Result Comment: This test is not yet approved or cleared by the [place] FDA. When there are no FDA-approved or cleared tests available, and other criteria are met, FDA can make tests available under an emergency access mechanism called an Emergency Use Authorization (EUA). The EUA for this test is supported by the Second Watch Sergeant of Health and Human Service's declaration that [...] used). Performed By: #### C MP #### [facility] [address] [place] [address] Dr. Ekta Funk INFLUENZA A AND B AGon 09-25 INFLUANEGH SEE BELOW Normal [facility] Comment on above: Result Comment: Nega tive for Flu A protein angiten. Infection due to Flu A cannot be ruled out. Flu A angiten in the sample may be below the detection limit of the test. Performed By: #### B 12FOL, VITAD, IRON #### [facility] [address] [address] [address] Ekta Funk [facility] SEE BELOW Normal [facility] Comment on above: Result Comment: Nega tive for Flu B protein antigen. Infection due to Flu B cannot be ruled out. Flu B antigen in the sample may be below the detection limit of the test. Performed By: #### B 12FOL, VITAD, IRON #### [facility] [address] [address] [address] Ekta Funk INFLUENZA A AG Negative Normal NEGATIVE SEE COMMENT [facility] Comment on above: Performed By: #### B 12FOL, VITAD, IRON #### [facility] [address] [address] [address] Ekta Funk INFLUENZA B AG Negative Normal NEGATIVE SEE COMMENT [facility] Comment on above: Performed By: #### B 12FOL, VITAD, IRON #### [facility] [address] [address] [address] Ekta Funk US CAROTID ART BILon [...] GODWIN BECK Date: 2022-05-26 16:06 Normal [facility] MRI BRAIN WO CONon 2 [...] by: DANIEL PINEDA Date: 2022-05-25 10:45 Normal [facility] ECHOCARDIO M/2D COMPLETEon 0 05-24-2022 ECHOCARDIO M/2D COMPLETE Patient: SHEILA MAC Exam Date: 05/24/2022 : 1950 Gender:F Ordering : DR KRZYSZTOF THOMPSON . Admission #: [id number] Family : Order #: [id number] CLICK HERE TO VIEW EXAM ECHOCARDIOGRAM REPORT [...] M.D. on 05/24/2022 at 14:45 Normal [facility] BASIC METABOLIC PANELon - Calcium mass conc 9.4 mg/dL Normal 8.6-10.3 The [facility] Comment on above: Order Comment: No: D o not add to previous draw Performed By: #### 0 0071 #### [facility] [address] [place] [address], [place] Chloride molar conc 108 mmol/L High 98-107 [facility] Comment on above: Order Comment: No: D o not add to previous draw Performed By: #### 0 0071 #### [facility] [address] [place] [address], [place] CO2 molar conc 22 mmol/L Normal 21-31 The [facility] Comment on above: Order Comment: No: D o not add to previous draw Performed By: #### 0 0071 #### [facility] [address] [place] [address], [place] Creatinine mass conc 1.18 mg/dL Normal 0.60-1.20 The [facility] Comment on above: Order Comment: No: D o not add to previous draw Performed By: #### 0 0071 #### [facility] [address] [place] [address], [place] GFR/1.73 sq M predicted among blacks MDRD vol rate/area (S/P/Bld) 55 ml/min/1.73sq m Abnormal >60 The [facility] Comment on above: Order Comment: No: D o not add to previous draw Performed By: #### 0 0071 #### [facility] [address] [place] [address], [place] GFR/1.73 sq M predicted among non-blacks MDRD vol rate/area (S/P/Bld) 45 ml/min/1.73sq m Abnormal >[address] [facility] Comment on above: Order Comment: No: D o not add to previous draw Performed By: #### 0 0071 #### [facility] [address] [place] [address], [facility] Glucose mass conc 166 mg/dL High 70-100 The [facility] Comment on above: Order Comment: No: D o not add to previous draw Performed By: #### 0 0071 #### [facility] [address] [place] [address], [facility] Potassium molar conc 4.1 mmol/L Normal 3.5-5.1 [facility] Comment on above: Order Comment: No: D o not add to previous draw Performed By: #### 0 0071 #### [facility] [address] [place] [address], [facility] Sodium molar conc 140 mmol/L Normal 136-145 The [facility] Comment on above: Order Comment: No: D o not add to previous draw Performed By: #### 0 0071 #### [facility] [address] [place] [address], [facility] Urea nitrogen mass conc 21 mg/dL Normal 7-25 The [facility] Comment on above: Order Comment: No: D o not add to previous draw Performed By: #### 0 0071 #### [facility] [address] [place] [address], [facility] CBC COMPLETE BLOOD COUNTon 0 - Erythrocyte distribution width Ratio (RBC) 12.9 % Normal 11.5-15.0 The [facility] Comment on above: Order Comment: No: D o not add to previous draw Performed By: #### 5 [id number] #### [facility] [address] [place] [address], [facility] Hematocrit Volume Fraction (Bld) 36.7 % Normal 36.0-45.0 The [facility] Comment on above: Order Comment: No: D o not add to previous draw Performed By: #### 5 0608 #### [facility] [address] [place] [address], [facility] Hemoglobin mass conc (Bld) 12.4 g/dL Normal 12.0-15.0 [facility] Comment on above: Order Comment: No: D o not add to previous draw Performed By: #### 5 0608 #### [facility] [address] [place] [id number], [facility] MCH Entitic mass (RBC) 31.2 pg Normal 27.0-33.0 Th e [facility] Comment on above: Order Comment: No: D o not add to previous draw Performed By: #### 5 0608 #### [facility] [address] [facility] [place] [address], [facility] MCHC mass conc (RBC) 33.8 g/dL Normal 32.0-35.0 The [facility] Comment on above: Order Comment: No: D o not add to previous draw Performed By: #### 5 0608 #### [facility] [address] [facility] [address] MCV Entitic volume (RBC) 92.4 fL Normal 82.0-98.0 [facility] Comment on above: Order Comment: No: D o not add to previous draw Performed By: #### 5 0608 #### [facility] [address] [facility] [place] [address], [facility] Nucleated RBC/100 WBC Ratio (Bld) 0 % Normal 0-0 The [facility] Comment on above: Order Comment: No: D o not add to previous draw Performed By: #### 5 0608 #### [facility] [address] [place] [address], [facility] PLAT CNT 227 10*3/uL Normal 150-400 The [facility] Comment on above: Order Comment: No: D o not add to previous draw Performed By: #### 5 0608 #### [facility] [address] [place] [address], [facility] RBC #/vol (Bld) 3.97 10*6/uL Normal 3.80-5.00 The [facility] Comment on above: Order Comment: No: D o not add to previous draw Performed By: #### 5 0608 #### [facility] [address] WBC #/vol (Bld) 5.55 10*3/uL Normal 4.00-10.60 The [facility] Comment on above: Order Comment: No: D o not add to previous draw Performed By: #### 5 0608 #### [facility] [address] Cardiovascular Lab Reporton 11-20-2018 Cardiovascular Lab Report [facility] Patient Name: Bubba [facility] Sheila MR #: [id number] Department of Physician: [facility] Shellie Gaspar M.D. Division of Service Date: 11/20/2018 Cardiology Birthdate: 1950 Adult Cardiovascular Room #: 3AB [id number] [facility] [address] [address] Cardiovascular Laboratory Report INDICATION: The patient is a 68-year-old woman who was evaluated in Cardiology Clinic because of new onset symptoms of shortness of breath on mild exertion. Her stress test showed evidence of nchac-si-qyejkoan area of inferoapical ischemia; because of that, she was referred for cardiac catheterization. PROCEDURES: 1. Right heart catheterization. 2. Bilateral selective coronary angiography. 3. Limited right femoral angiography. METHOD: Procedure was explained patient with risks and benefits. She signed informed consent. She was brought to track laborer in a fasting state. The right groin area was prepped and draped in usual fashion. Using micropuncture technique, the right common femoral artery was accessed. The inner cannula was advanced. Limited femoral angiography was performed followed by upsizing to a 6-Mozambican x 11 cm sheath. Access was also obtained using the same technique in the right common femoral vein and a 6-Mozambican x 11 cm sheath was placed. A 6-Mozambican Michel catheter was used for right heart catheterization with measurement of pressures and calculation of cardiac output using the estimated Ivory method. Michel catheter was removed. Bilateral selective coronary angiography was then performed using 6-Mozambican JL4 and JR4 diagnostic catheters. Catheters were [...] Gaspar M.D. Date Trans: 11/20/2018 09:31 A/alvina [id number] cc: Krzysztof Thompson M.D. [address] [facility] [id number] [facility] BASIC METABOLIC PANELon 11-08 Calcium mass conc 9.5 mg/dL Normal 8.6-10.3 The [facility] Comment on above: Order Comment: No: D o not add to previous draw Performed By: #### 0 0071 #### [facility] [address] [place] [address], [place] Chloride molar conc 105 mmol/L Normal 98-107 The [facility] Comment on above: Order Comment: No: D o not add to previous draw Performed By: #### 0 0071 #### [facility] [address] [place] [address], [place] CO2 molar conc 24 mmol/L Normal 21-31 The [facility] Comment on above: Order Comment: No: D o not add to previous draw Performed By: #### 0 0071 #### [facility] [address] [place] [address], [place] Creatinine mass conc 1.42 mg/dL High 0.60-1.20 [facility] Comment on above: Order Comment: No: D o not add to previous draw Performed By: #### 0 0071 #### [facility] [address] [place] [address], [place] GFR/1.73 sq M predicted among blacks MDRD vol rate/area (S/P/Bld) 45 ml/min/1.73sq m Abnormal >60 The [facility] Comment on above: Order Comment: No: D o not add to previous draw Performed By: #### 0 0071 #### [facility] [address] [place] [address], [place] GFR/1.73 sq M predicted among non-blacks MDRD vol rate/area (S/P/Bld) 36 ml/min/1.73sq m Abnormal >[address] [facility] Comment on above: Order Comment: No: D o not add to previous draw Performed By: #### 0 0071 #### [facility] [address] [place] [address], [facility] Glucose mass conc 86 mg/dL Normal 70-100 The [facility] Comment on above: Order Comment: No: D o not add to previous draw Performed By: #### 0 0071 #### [facility] [address] [place] [address], [facility] Potassium molar conc 4.2 mmol/L Normal 3.5-5.1 [facility] Comment on above: Order Comment: No: D o not add to previous draw Performed By: #### 0 [id number] #### [facility] [address] [place] [address], [facility] Sodium molar conc 138 mmol/L Normal 136-145 The [facility] Comment on above: Order Comment: No: D o not add to previous draw Performed By: #### 0 [id number] #### [facility] [address] [place] [address], [facility] Urea nitrogen mass conc 19 mg/dL Normal 7-25 [facility] Comment on above: Order Comment: No: D o not add to previous draw Performed By: #### 0 [id number] #### [facility] [address] [facility] [address] CBC COMPLETE BLOOD COUNTon 0 - Erythrocyte distribution width Ratio (RBC) 13.0 % Normal 11.5-15.0 [facility] Comment on above: Order Comment: No: D o not add to previous draw Performed By: #### [id number] #### [facility] [address] [place] [address], [facility] Hematocrit Volume Fraction (Bld) 38.3 % Normal 36.0-45.0 [facility] Comment on above: Order Comment: No: D o not add to previous draw Performed By: #### [id number] #### [facility] [address] [place] [address], [facility] Hemoglobin mass conc (Bld) 12.6 g/dL Normal 12.0-15.0 [facility] Comment on above: Order Comment: No: D o not add to previous draw Performed By: #### [id number] #### [facility] [address] [facility] MCH Entitic mass (RBC) 31.1 pg Normal 27.0-33.0 Th e [facility] Comment on above: Order Comment: No: D o not add to previous draw Performed By: #### [id number] #### [facility] [address] MCHC mass conc (RBC) 32.9 g/dL Normal 32.0-35.0 [facility] Comment on above: Order Comment: No: D o not add to previous draw Performed By: #### [id number] #### [facility] 3000 [facility]. [address] MCV Entitic volume (RBC) 94.6 fL Normal 82.0-98.0 [facility] Comment on above: Order Comment: No: D o not add to previous draw Performed By: #### [id number] #### [facility] [address] Nucleated RBC/100 WBC Ratio (Bld) 0 % Normal 0-0 [facility] Comment on above: Order Comment: No: D o not add to previous draw Performed By: #### [id number] #### [facility] [address] [place] [address], [facility] PLAT CNT 266 10*3/uL Normal 150-400 The [facility] Comment on above: Order Comment: No: D o not add to previous draw Performed By: #### 5 [id number] #### [facility] [address] RBC #/vol (Bld) 4.05 10*6/uL Normal 3.80-5.00 The [facility] Comment on above: Order Comment: No: D o not add to previous draw Performed By: #### 5 [id number] #### [facility] [address] [place] [address], [facility] WBC #/vol (Bld) 9.01 10*3/uL Normal 4.00-10.60 The [facility] Comment on above: Order Comment: No: D o not add to previous draw Performed By: #### [id number] #### [facility] [address] [facility] [address] PROTHROMBIN TIMEon 9 INR Coag RelTime (PPP) 1.07 {INR} Normal 0.91-1.16 Th e [facility] Comment on above: Order Comment: [...] 1995;108:[id number]-246S. Performed By: #### [id number] #### [facility] [address] Prothrombin time (PT) Coag time (PPP) 13.9 s Normal 12.3-14.8 [facility] Comment on above: Order Comment: No: D o not add to previous draw Result Comment: ALL RESULTS MUST BE INTERPRETED WITH RESPECT TO BLOOD DRAWING ARTIFACT OR DILUTION ERROR OF ANTICOAGULANT AT THE TIME OF SAMPLING. Performed By: #### [id number] #### [facility] [address] Vital Signs Date Time Vital Sign Value Performing Clinician Joel mcclellan 03-26-2025 14:35-0400 Body height 157.48 cm Krzysztof Thompson MD Work Phone: [facility] 03-26-2025 14:35-0400 Body mass index (BMI) [Ratio] 21.7 kg/m2 Krzysztof Thompson MD Work Phone: [facility] 03-26-2025 14:35-0400 Body weight 53.97 kg Krzysztof Thompson MD Work Phone: [facility] 02-19-2025 14:50-0400 Body weight 56.2 kg Krzysztof Thompson MD Work Phone: [facility] 12-25-2024 10:07-0400 Body height 162.6 cm Kaitlin Macdonald SYSTEM TRAINER-LINE CONSTRUCTION SUPERINTENDENT Work Phone: [facility] 12-25-2024 10:07-0400 Body mass index (BMI) [Ratio] 21.7 kg/m2 Kaitlindusty Macdonald SYSTEM TRAINER-LINE CONSTRUCTION SUPERINTENDENT Work Phone: [facility] 12-25-2024 10:07-0400 Body weight 57.34 kg Kaitlindusty Macdonald SYSTEM TRAINER-LINE CONSTRUCTION SUPERINTENDENT Work Phone: [facility] 12-25-2024 10:07-0400 Diastolic blood pressure 99 mm[Hg] Kaitlin Macdonald SYSTEM TRAINER-LINE CONSTRUCTION SUPERINTENDENT Work Phone: [facility] 12-25-2024 10:07-0400 Heart rate 89 /min Kaitlin Macdonald SYSTEM TRAINER-LINE CONSTRUCTION SUPERINTENDENT Work Phone: [facility] 12-25-2024 10:07-0400 Systolic blood pressure 157 mm[Hg] Kaitlin Macdonald SYSTEM TRAINER-LINE CONSTRUCTION SUPERINTENDENT Work Phone: [facility] 08-11-2024 14:21-0500 Body mass index (BMI) [Ratio] 23.52 kg/m2 Christopher Shama DO Work Phone: [facility] 08-11-2024 14:21-0500 Body weight 60.24 kg Christopher Shama DO Work Phone: [facility] 08-11-2024 14:21-0500 Diastolic blood pressure 82 mm[Hg] Christopher Shama DO Work Phone: [facility] 08-11-2024 14:21-0500 Heart rate 79 /min Christopher Shama DO Work Phone: [facility] 08-11-2024 14:21-0500 SaO2% (BldA) [Mass fraction] 97 % [facility] Work Phone: [facility] 08-11-2024 14:21-0500 Systolic blood pressure 130 mm[Hg] Heliumsantoser Shama DO Work Phone: [facility] 07-22-2024 11:45-0500 Body height 162.6 cm Pmh 1 [facility] 07-22-2024 11:45-0500 Body mass index (BMI) [Ratio] 22.31 kg/m2 Pmh 1 [facility] 07-22-2024 11:45-0500 Body weight 58.97 kg Pmh 1 [facility] 07-16-2024 11:25-0500 Body height 162.6 cm Kaitlin Dumontoll SYSTEM TRAINER-LINE CONSTRUCTION SUPERINTENDENT Work Phone: [facility] 07-16-2024 11:25-0500 Body mass index (BMI) [Ratio] 22.49 kg/m2 Kaitlin Torres SYSTEM TRAINER-LINE CONSTRUCTION SUPERINTENDENT Work Phone: [facility] 07-16-2024 11:25-0500 Body weight 59.42 kg Kaitlinanat Dumontoll SYSTEM TRAINER-LINE CONSTRUCTION SUPERINTENDENT Work Phone: [facility] 07-14-2024 13:28-0500 Body mass index (BMI) [Ratio] 23.52 kg/m2 Christopher Shama DO Work Phone: [facility] 07-14-2024 13:28-0500 Body weight 60.24 kg Christopher Shama DO Work Phone: [facility] 07-14-2024 13:28-0500 Diastolic blood pressure 101 mm[Hg] Christopher Shama DO Work Phone: [facility] 07-14-2024 13:28-0500 Heart rate 87 /min Christopher Shama DO Work Phone: [facility] 07-14-2024 13:28-0500 SaO2% (BldA) [Mass fraction] 91 % Christopher Shama DO Work Phone: [facility] 07-14-2024 13:28-0500 Systolic blood pressure 155 mm[Hg] Christopher Shama DO Work Phone: [facility] 03-26-2024 11:35-0400 Diastolic blood pressure 106 mm[Hg] MD Krzysztof Thompson Work Phone: [facility] 03-26-2024 11:35-0400 Heart rate 76 /min MD Krzysztof Thompson Work Phone: [facility] 03-26-2024 11:35-0400 Respiratory rate 18 /min MD Krzysztof Thompson Work Phone: [facility] 03-26-2024 11:35-0400 SaO2% (BldA) [Mass fraction] 96 % MD Krzysztof Thompson Work Phone: [facility] 03-26-2024 11:35-0400 Systolic blood pressure 152 mm[Hg] MD Krzysztof Thompson Work Phone: [facility] 03-26-2024 10:24-0400 Body height 157.48 cm MD Krzysztof Thompson Work Phone: [facility] 03-26-2024 10:24-0400 Body weight 62.14 kg MD Krzysztof Thompson Work Phone: [facility] 02-19-2024 09:07-0400 Body height 157.48 cm MD Krzysztof Thompson Work Phone: [facility] 02-19-2024 09:07-0400 Body mass index (BMI) [Ratio] 24.7 kg/m2 MD Krzysztof Thompson Work Phone: [facility] 02-19-2024 09:07-0400 Body weight 61.23 kg MD Krzysztof Thompson Work Phone: [facility] 02-19-2024 09:07-0400 Diastolic blood pressure 105 mm[Hg] MD Krzysztof Thompson Work Phone: [facility] 02-19-2024 09:07-0400 Heart rate 60 /min MD Krzysztof Thompson Work Phone: [facility] 02-19-2024 09:07-0400 Systolic blood pressure 146 mm[Hg] MD Krzysztof Thompson Work Phone: [facility] 02-05-2024 13:37-0400 Diastolic blood pressure 47 mm[Hg] MD Krzysztof Thompson Work Phone: [facility] 02-05-2024 13:37-0400 Heart rate 78 /min MD Krzysztof Thompson Work Phone: [facility] 02-05-2024 13:37-0400 Respiratory rate 16 /min MD Krzysztof Thompson Work Phone: [facility] 02-05-2024 13:37-0400 SaO2% (BldA) [Mass fraction] 97 % MD Krzysztof Thompson Work Phone: [facility] 02-05-2024 13:37-0400 Systolic blood pressure 122 mm[Hg] MD Krzysztof Thompson Work Phone: [facility] 02-05-2024 11:35-0400 Body height 157.48 cm MD Krzysztof Thompson Work Phone: [facility] 02-05-2024 11:35-0400 Body temperature 99.1 [degF] MD Krzysztof Thompson Work Phone: [facility] 02-05-2024 11:35-0400 Body weight 62.14 kg MD Krzysztof Thompson Work Phone: [facility] Encounters Encounter Date Encounter Type Care Provider Facility Start: 05-13-2025 End: 05-13-2025 ambulatory Krzysztof Thompson MD Work Phone: [facility] Work Phone: Start: 05-13-2025 End: 05-13-2025 Departed Referred Krzysztof Marmolejo MD -[facility] Start: 05-04-2025 End: 05-04-2025 ambulatory Krzysztof Thompson MD Work Phone: [facility] Work Phone: Start: 05-04-2025 End: 05-04-2025 Patient encounter procedure Rickie Johnson MD -[facility] Work Phone: Start: 04-27-2025 End: 04-27-2025 ambulatory Krzysztof Thompson MD Work Phone: [facility] Work Phone: Start: 04-27-2025 End: 04-27-2025 Patient encounter procedure Rickie Alvares MD -[facility] Work Phone: Start: 04-02-2025 End: 04-02-2025 ambulatory Krzysztof Thompson MD Work Phone: [facility] Work Phone: Start: 04-02-2025 End: 04-02-2025 Patient encounter procedure Rickie Johnson MD -[facility] Work Phone: Start: 03-31-2025 ambulatory Yael Atwood MD [facility] Start: 03-26-2025 End: 03-26-2025 ambulatory Krzysztof Thompson MD Work Phone: [facility] Work Phone: Start: 03-26-2025 End: 03-26-2025 Patient encounter procedure Vasyl Calvert MD -[facility] Work Phone: Start: 03-11-2025 End: 03-11-2025 ambulatory Krzysztof Thompson MD Work Phone: [facility] Work Phone: Start: 03-11-2025 End: 03-11-2025 Patient encounter procedure Rickie Johnson MD -[facility] Work Phone: Start: 02-26-2025 End: 02-26-2025 Patient encounter procedure Vasyl Calvert MD -[facility] Work Phone: Start: 02-26-2025 End: 02-26-2025 ambulatory Krzysztof Thompson Facility:[facility] Start: 02-19-2025 End: 02-19-2025 Patient encounter procedure Vasyl Calvert MD -[facility] Work Phone: Start: 12-25-2024 End: 12-25-2024 Office outpatient visit 15 minutes Kaitlin Macdonald APRN-[facility] Comment on above: Bright red blood per rectum (Primary Dx) Start: 12-25-2024 End: 12-25-2024 Orders Only Not In System Ref Prov [facility] Start: 08-11-2024 End: 08-11-2024 ambulatory RAVEN SESAY Not Available Start: 08-11-2024 End: 08-11-2024 Office outpatient visit 25 minutes Raven Sesay DO Work Phone: [facility] [address] Comment on above: Left hand pain (Prim pérez Dx); Primary osteoarthritis of hand, unspecified laterality Start: 08-04-2024 End: 08-04-2024 Telephone encounter Angelica Dawson CMA [facility] Start: 07-28-2024 End: 07-28-2024 Evaluation and management of inpatient [facility] Start: 07-22-2024 End: 07-22-2024 ambulatory [facility] Pat Phone Call Provider 1 [facility] - Pre Admit Start: 07-22-2024 End: 07-22-2024 ambulatory KRZYSZTOF THOMPSON [facility] Start: 07-17-2024 End: 07-17-2024 Bamboo flowsheet Raven Sesay DO [facility] Start: 07-17-2024 End: 07-17-2024 Bamboo flowsheet Raven Sesay DO Work Phone: [facility] [place] [address] Start: 07-17-2024 End: 07-17-2024 Patient encounter procedure [facility] DO [facility] Comment on above: Cervical radiculopat hy (Primary Dx); Paresthesia Start: 07-17-2024 End: 07-17-2024 ambulatory RAVEN SESAY Not Available Start: 07-16-2024 End: 07-16-2024 Office outpatient new 30 minutes Kaitlin Blane DumontMacdonald SYSTEM TRAINER-LINE CONSTRUCTION SUPERINTENDENT Work Phone: [facility] Comment on above: Vomiting in adult (P rimary Dx); History of gastric ulcer; Chronic GERD; Hiatal hernia; Dysphagia, unspecified type Start: 07-16-2024 End: 07-16-2024 ambulatory [facility] Start: 07-15-2024 End: 07-15-2024 ambulatory CLEVE SHETH Not Available Start: 07-15-2024 End: 07-15-2024 Office outpatient visit 10 minutes Cleve Sheth DO Work Phone: [facility] Comment on above: Chronic right hip pa in (Primary Dx); Sacral insufficiency fracture with routine healing, subsequent encounter; Closed fracture of multiple pubic rami, right, initial encounter ([facility]) Start: 07-14-2024 End: 07-14-2024 Bamboo flowsheet Raven Sesay DO Work Phone: [facility] Start: 07-14-2024 End: 07-14-2024 Bamboo flowsheet Raven Sesay DO Work Phone: [facility] [place] [address] Start: 07-14-2024 End: 07-14-2024 [...] 25 minutes Cleve Sheth DO Work Phone: [facility] Comment on above: Chronic right hip pa in (Primary Dx); Sacral insufficiency fracture, initial encounter (CMS/HCC); Closed fracture of multiple pubic rami, right, initial encounter ([facility]) Start: 06-17-2024 End: 06-17-2024 ambulatory CLEVE SHTEH Not Available Start: 06-13-2024 End: 06-13-2024 Emergency department patient visit KRZYSZTOF THOMPSON [facility] Start: 06-12-2024 End: 06-12-2024 ambulatory CLEVE [...] / Non-visit MD Carrie Thompson Work Phone: [facility] Work Phone: Start: 03-26-2024 End: 03-26-2024 Admission to same day surgery center MD Krzysztof Thompson Work Phone: [facility] Work Phone: Start: 03-26-2024 End: 03-26-2024 ambulatory MD Krzysztof Thompson Work Phone: [facility] Work Phone: Start: 02-19-2024 End: 02-19-2024 ambulatory MD Krzysztof Thompson Work Phone: [facility] Work Phone: Start: 02-19-2024 End: 02-19-2024 Patient encounter procedure MD Krzysztof Thompson Work Phone: [facility] Work Phone: Start: 02-05-2024 Non-patient / Non-visit MD Carrie Thompson Work Phone: [facility] Work Phone: Start: 02-05-2024 End: 02-05-2024 Admission to same day surgery center MD Krzysztof Thompson Work Phone: [facility] Work Phone: Start: 02-05-2024 End: 02-05-2024 ambulatory MD Krzysztof Thompson Work Phone: [facility] Work Phone: Start: 01-16-2024 Non-patient / Non-visit MD Carrie Thompson Work Phone: [facility] Work Phone: Start: 01-09-2024 End: 01-09-2024 ambulatory DARSHAN HERNANDEZ Not Available Start: 01-07-2024 ambulatory KRZYSZTOF THOMPSON [facility] Start: 01-16-2023 ambulatory JN GARCIA . Facility :[facility]1 Start: 01-15-2023 End: 01-15-2023 ambulatory APRIL CASTANEDA . Facility:[facility] Start: 01-10-2023 End: 01-11-[address] KRZYSZTOF THOMPSON . Facility:[facility] Start: 12-15-2022 End: 12-15-2022 ambulatory APRIL CASTANEDA . Facility:[facility] Start: 12-15-2022 [facility] Start: 12-05-2022 End: 12-06-2022 ambulatory [...] End: 07-26-[address] KRZYSZTOF THOMPSON . Facility: Start: 05-26-2022 End: 05-27-[address] KRZYSZTOF THOMPSON . Facility: Start: 05-25-2022 End: 05-26-[address] KRZYSZTOF THOMPSON . Facility: Start: 05-24-2022 End: 05-25-[address] KRZYSZOTF THOMPSON . Facility: Start: 05-11-2022 End: 05-12-[address] KRZYSZTOF THOMPSON . Facility: Start: 02-14-2022 End: 02-15-[address] KRZYSZTOF THOMPSON . Facility: Start: 11-19-2018 End: 11-20-2018 Patient encounter procedure PROVIDER UNKNOWN Facility:[facility] Start: 11-13-2018 End: 11-14-2018 Patient encounter procedure DEFAULT PHYSICIAN Facility:[facility] Start: 10-31-2018 End: 11-01-2018 Patient encounter procedure DEFAULT PHYSICIAN Facility:[facility] Start: 09-23-2018 End: 09-24-2018 Patient encounter procedure DEFAULT PHYSICIAN Facility:[facility] Start: 09-05-2018 End: 09-06-2018 Patient encounter procedure DEFAULT PHYSICIAN Facility:[facility] Procedures Date Procedure Procedure Detail Performing [...] Author Start: 12-31-2025 Tobacco Screening Tobacco Screening [facility] Start: 12-25-2025 Tobacco Screening Tobacco Screening [facility] Start: 07-28-2025 Tobacco Screening Tobacco Screening [facility] Start: 07-22-2025 Tobacco Screening Tobacco Screening [facility] Start: 07-16-2025 Tobacco Screening Tobacco Screening [facility] Start: 05-13-2025 Bacteria identified in Urine by Culture Urine Culture [facility] Start: 05-13-2025 Urine culture [facility] Start: 05-11-2025 Influenza vaccination Influenza Vaccine [facility] Start: 03-26-2025 Patient referral [facility] Work Phone: Start: 03-11-2025 X-ray of thoracic spine, two views XR thoracic spine 2V [facility] Start: 03-11-2025 XR Thoracic spine 2 Views [facility] Start: 02-19-2025 Patient referral [facility] Work Phone: Start: 08-11-2024 End: 08-11-2024 Patient encounter procedure 08/11/2024 2:15 PM EST Off ice Visit [facility] [address] [place] [id number] Raven Sesay, DO [address] [place] [address] [facility] Start: 07-28-2024 End: 07-28-2024 Admission to same day surgery center 07/28/2024 9:15 AM EST - 07/28/2024 9:45 AM EST Surgery [facility] - Surgery [address] [place] [phone] Loren Latham MD [address] [place] [phone] ESOPHAGOGASTRODUODENOSCOPY DIAGNOSTIC [59330 (CPT )] [facility] Comment on above: ESOPHAGOGASTRODUODENOSCOPY DIAGNOSTIC [4 3235 (CPT )] Start: 07-28-2024 End: 07-28-2024 Esophagogastroduodenoscopy transoral diagnostic ESOPHAGOGASTRODUODENOSCOPY DIAGNOSTIC vomiting, gastroesophageal reflux, dysphagia 07/28/2024 9:15 AM EST [facility] Start: 07-28-2024 Subsequent hospital visit by physician 07/28/2024 9:15 AM EST Hospital Encounter [facility] [address] [place] [phone] Loren Latham MD [address] [place] [phone] [facility] Start: 07-22-2024 End: 07-22-2024 ambulatory 07/22/2024 3:10 PM EST Support Visit [facility] Admit [address] [place] [phone] [facility] - Pre Admit Start: 07-17-2024 [...] 07-14-2024 End: 07-14-2024 Patient encounter procedure [facility] [address] Comment on above: Brachial plexopathy; Ulnar neuropathy of left upper extremity Start: 06-17-2024 End: 06-17-2024 Patient encounter procedure 06/17/2024 1:30 PM EDT Off ice [facility] [address] [place] [address] Cleve Sheth DO [address] [place] [address] Chronic right hip pain (Primary Dx); Sacral insufficiency fracture, initial encounter (CMS/HCC); Closed fracture of multiple pubic rami, right, initial encounter (CMS/HCC) [facility] Comment on above: Chronic right hip pain (Primary Dx); Sacral insufficiency fracture, initial encounter (CMS/HCC); Closed fracture of multiple pubic rami, right, initial encounter (CMS/HCC) Start: 06-16-2024 End: 06-16-2024 Patient encounter procedure 06/16/2024 12:30 PM EDT Office Visit [facility] [place] [address] [place] [address] Raven Sesay DO [address] [place] [address] [facility] Start: 05-11-2024 COVID-19 Vaccine ( season) COVID-19 Vaccine ( season) [facility] Start: 05-11-2024 Influenza vaccination Influenza Vaccine (#1) [facility] Start: 03-26-2024 [facility] Start: 02-05-2024 [facility] Start: 07-26-2019 Administration of varicella zoster vaccine Zoster (Shingles) Vaccine (3 of 3) [facility] Start: 2013 Fall Risk Screening Fall Risk Screening [facility] Start: 1967 DTaP,Tdap and Td Vaccines (1 - Tdap) DTaP,Tdap and Td Vaccines (1 - Tdap) [facility] Start: 1960 Depression Screening Depression Screening [facility] End: 07-16-2025 Esophagogastroduodenoscopy EGD GI Routine Vomiting in adult Chronic GERD Dysphagia, unspecified type 1 Occurrences starting 07/16/2024 until 07/16/2025 [facility] Work Phone: Comment on above: 1 Occurrences starting 07/16/2024 until 07/16/2025 Patient Education [facility] Work Phone: Patient referral [facility] Work Phone: XR Shoulder - right Views Fi [facility] Immunizations Immunization Date Immunization Notes Care Provider Kimberly laurent 06-19-2024 influenza virus vaccine, unspecified formulation Bonifaciosantosrobert Sesay DO Work Phone: [facility] 06-05-2023 Influenza, Seasonal, Quadrivalent, Adjuvanted Cleve Sheth DO Work Phone: [facility] 06-05-2023 influenza virus vaccine, unspecified formulation Cleve Sheth DO Work Phone: [facility] 06-12-2022 influenza, high dose seasonal, preservative-free Cleve Sheth DO Work Phone: [facility] 05-30-2022 Influenza, High-dose Seasonal, Quadrivalent, Preservative Free Cleve Sheth DO Work Phone: [facility] 06-15-2021 Influenza, High-dose Seasonal, Quadrivalent, Preservative Free Cleve Sheth DO Work Phone: [facility] 01-10-2021 SARS-CoV-2, Unspecified Amando s Meryl DO Work Phone: [facility] 05-31-2019 zoster vaccine, unspecified formulation Kaitlin Macdonald APRN-NEVAEH Work Phone: [facility] 06-18-2018 influenza, high dose seasonal, preservative-free Cleve Sheth DO Work Phone: [facility] 05-22-2017 influenza, injectabl e, quadrivalent, preservative free Cleve Sheth DO Work Phone: [facility] 06-14-2016 influenza, high dose seasonal, preservative-free Cleve Sheth DO Work Phone: [facility] 06-03-2015 influenza, high dose seasonal, preservative-free Cleve Sheth DO Work Phone: [facility] 09-10-2014 pneumococcal conjuga te vaccine, 13 valent Cleve Sheth DO Work Phone: [facility] 06-10-2014 influenza, seasonal, injectable Cleve Sheth DO Work Phone: [facility] 08-11-2013 zoster vaccine, live Cleve ponce DO Work Phone: [facility] 07-14-2013 pneumococcal polysaccharide vaccine, 23 valent Cleve Sheth DO Work Phone: [facility] 06-30-2013 seasonal influenza, intradermal, preservative free Cleve Sheth DO Work Phone: [facility] Payers Date Payer Category Payer Self-pay 2021 Medicare ANTHEM MEDICARE ADVANTAGE ANTHEM MEDICARE ADVANTAGE [id number] 2021-Present [address] [place] [address] [id number] 2021 Medicare (Managed Care) [facility] Member Subscriber Plan / Payer (Effective 2021-Present) Name: Sheila Mac Relation to Subscriber: Self Name: Sheila Mac Payer ID: Not on file Group ID: [id number] Type: Not on file Address: [address] [place] [id number] 2017 Medicare HMO ANTHEM MEDICARE [id number] 2015 Medicare [id number] 1959 Unknown [id number] 1948 Unknown [id number] 2.16840.1.740689.3.579. 2.647 1948 Unknown [id number] 2.16840.1.090023.3.579. 2.647 1948 Unknown [id number] 2.16840.1.548904.3.579. 2.647 1948 Unknown [id number] 2.16840.1.987008.3.579. 2.647 1948 Unknown [id number] 2.16840.1.537165.3.579. 2.647 1948 Unknown [id number] 2.16840.1.654855.3.579. 2.593 1948 Unknown [id number] 2.16840.1.333797.3.579. 2.593 1948 Unknown [id number] 2.16.840.1.380659.3.579. 2.59 1948 Unknown [id number] 2.16840.1.034414.3.579. 2.593 1948 Unknown [id number] 2.16840.1.975935.3.579. 2.59 1948 Unknown [id number] 2.16.840.1.831741.3.579. 2.593 1948 Unknown [id number] 2.16.840.1.577381.3.579. 2.593 1948 Unknown [id number] 2.16.840.1.993480.3.579. 2.593 1948 Unknown [id number] 2.16.840.1.231170.3.579. 2.593 1948 Unknown [id number] 2.16.840.1.353864.3.579. 2.593 1948 Unknown [id number] 2.16.840.1.556599.3.579. 2.593 1948 Unknown [id number] 2.16.840.1.025338.3.579. 2.593 1948 Unknown [id number] 2.16.840.1.030580.3.579. 2.593 1948 Unknown [id number] 2.16.840.1.579517.3.579. 2.593 1948 Unknown [id number] 2.16.840.1.552891.3.579. 2.593 1948 Unknown [id number] 2.16.840.1.384389.3.579. 2.593 1948 Unknown [id number] 2.16.840.1.444683.3.579. 2.593 1948 Unknown [id number] 2.16.840.1.508426.3.579. 2.593 1948 Unknown [id number] 2.16.840.1.849749.3.579. 2.593 1948 Unknown [id number] 2.16.840.1.207742.3.579. 2.1286 1948 Unknown [id number] 2.16.840.1.697090.3.579. 2.128 1948 Unknown [id number] 2.16840.1.162843.3.579. 2.1285 1948 Unknown [id number] 2.16.840.1.124477.3.579. 2.1258 1948 Unknown [id number] 2.16840.1.731139.3.579. 2.1258 1948 Unknown [id number] 2.16840.1.341270.3.579. 2.1258 1948 Unknown [id number] 2.840.1.828399.3.579. 2.1258 1948 Unknown [id number] 2.840.1.999618.3.579. 2.1258 1948 Unknown [id number] 2.840.1.722069.3.579. 2.1258 1948 Unknown [id number] 2.840.1.971776.3.579. 2.1258 1948 Unknown [id number] 2.840.1.231458.3.579. 2.1258 1948 Unknown [id number] 2.840.1.344124.3.579. 2.1258 1948 Unknown [id number] 2.840.1.942033.3.579. 2.1258 1948 Unknown [id number] 2.16840.1.562197.3.579. 2.1258 1948 Unknown [id number] 2.16840.1.589610.3.579. 2.1285 1948 Unknown [id number] 2.16840.1.055482.3.579. 2.1285 1948 Unknown [id number] 2.16840.1.050786.3.579. 2.1286 1948 Unknown [id number] 2..840.1.103436.3.579. 2.1286 1948 Unknown [id number] 2.16.840.1.689551.3.579. 2.1286 Medicare [id number] Unknown Unknown [id number] 2.16.840.1.910393.3.579. 2.531 Unknown [id number] 2.16.840.1.101728.3.579. 2.531 Unknown [id number] 2.16.840.1.288625.3.579. 2.531 Unknown [id number] 2.840.1.501962.3.579. 2.531 Social History Date Type Detail Facility Start: 02-05-2024 End: 02-20-2025 Tobacco smoking status MSIS Never smoked tobacco (finding) [facility] Start: 1950 Sex Assigned At Female F [facility] Start: 01-09-2024 End: 07-14-2024 Alcoholic beverage intake Lifetime non-drinker (finding) [facility] Start: 10-21-2020 End: 01-09-2024 History of Social function [facility] Start: 10-21-2020 End: 01-09-2024 Tobacco use panel [facility] Start: 1950 Sex assigned at Not on file N [facility] Start: 09-28-2017 Tobacco use and exposure Smokeless tobacco non-user [facility] Start: 07-16-2024 End: 12-31-2024 Alcoholic beverage intake Current non-drinker of alcohol (finding) [facility] Childcare Unknown [facility] Start: 04-15-2015 Sex Female (finding) [facility] Goals Date Patient Goal Desired Activity /State Clinical Notes 02-14-2022 to 02-19-2025 Note Date & Type Note Facility 02-19-2025 Evaluation note Diagnosis Onset Date Resolution Left lumbosacral radiculopathy acute February 19, 2025 2:18pm Spondylolisthesis, lumbar region acute February 19, 2025 2:18pm Chronic pain acute March 11 7:53am Myalgia acute March 11, 2025 7:53am Thoracic back pain acute March 112024 7:53am [facility] Work Phone: 1(997) 602-285406-12-2025 Evaluation note* Diagnosis Onset Date Resolution Status Admit Date Left lumbosacral radiculopathy acute February 19, 2025 2:18pm Spondylolisthesis, lumbar region acu te February 19, 2025 2:18pm Chronic pain acute March 11 7:53am Myalgia acute March 11, 2025 7:53am Thoracic back pain acute March 112024 7:53am Left lumbosacral radiculopathy acute March 26, 2025 2:23pm Spondylolisthesis, lumbar region acu te March 26, 2025 2:23pm [facility] Work Phone: 1(217) 681-192906-12-2025 Evaluation note* Diagnosis Onset Date Resolution Status [...] 2025 2:23pm Chronic pain acute April 02, 8:55am Myalgia acute April 02 8:55am Shoulder pain, right acute April 02, 2025 8:55am Thoracic back pain acute March 112024 8:55am [facility] Work Phone: 1(374) 615-291106-12-2025 Evaluation note* Diagnosis Onset Date Resolution Status [...] 2025 2:23pm Chronic pain acute April 02, 025 8:55am Myalgia acute April 02 8:55am Shoulder pain, right acute April 02, 2025 8:55am Thoracic back pain acute March 112024 8:55am GERD (gastroesophageal reflu x disease) acute April 27 1:29pm Osteoporosis acute April 27, 2025 1:29pm Postmenopausal acute April 1:29pm Stomach ulcer acute April 1:29pm [facility] Work Phone: 1(300) 950-366906-12-2025 Evaluation note* Diagnosis Onset Date Resolution Status [...] 2025 2:23pm Chronic pain acute April 02, 025 8:55am Myalgia acute April 02 8:55am [...] 2 025 8:05am Shoulder pain, right acute 2024 8:05am Thoracic back pain acute May 04, 2025 8:05am [facility] Work Phone: 1(687) 266-356204-17-2025 History of Present illness Narrative* Kaitlin Macdonald, SYSTEM TRAINER-LINE CONSTRUCTION SUPERINTENDENT - 12/25/2024 10:00 AM EDT Images from [...] was March [address] Sanchez at [facility]. Sigmoid diverticular stricture noted, able to pass [...] Back pain COPD (chronic obstructive pulmonary disease) ([facility]) Diverticulitis GERD (gastroesophageal reflux disease) Hyperlipidemia Hypertension Pancreatitis Peptic ulceration Pneumonia PONV (postoperative nausea and vomiting) Prolonged emergence from general anesthesia Rectal bleeding Stroke ([facility]) x2, patient states light strokes Visual impairment Past Surgical History: Procedure Laterality Date APPENDECTOMY BACK SURGERY LOWER CHOLECYSTECTOMY 2017 patient states did not have this surgery COLONOSCOPY COLONOSCOPY N/A 05/26/2021 Performed by Freeman Michelle DO at [facility] EGD N/A 10/01/2017 Performed by Freeman Michelle DO at [facility] ESOPHAGOGASTRODUODENOSCOPY ESOPHAGOGASTRODUODENOSCOPY N/A 05/26/2021 Performed by Freeman Michelle DO at [facility] ESOPHAGOGASTRODUODENOSCOPY DIAGNOSTIC N/A 07/28/2024 Performed by Loren Latham MD at [facility] HYSTERECTOMY KNEE ARTHROSCOPY Right patient denies sugery, [...] Interpersonal Safety: Unknown (11/01/2023) Received from [facility] Safety & Environment Fear of Current or [...] patient/family/caregiver Referring and communicating with other health restorative care technician Bright red blood per rectum [K62.5] TAMIE REYES [facility] General Surgery [place] This note was created with the assistance of a speech recognition program. While intending to generate a timely document that accurately reflects the content of the visit, no guarantee can be provided that every grammatical or spelling mistake has been or will be identified or corrected. Thank you for your understanding. TAMIE Reyes 12/31/24 1056 documented in this [facility]12[facility] History of Present illness Narrative* Raven Sesay, [...] Diverticulosis OTHER SURGICAL HISTORY 2017 perforated ulcer DC ARTHRS KNE SURG W/MENISCECTOMY MED/LAT W/SHVG Right 2017 DR GONZALZE medial/lateral menisectomy, synovectomy, abraison chondroplasty TUBAL LIGATION [...] , wrist extensors , wrist flexor , educational institution curator strength 5/5. LUE Strength deltoid , biceps , triceps , wrist extensors , wrist flexor , educational institution curator strength 5/5. RLE Strength illopsoas, quadriceps, tibialis [...] reflex 0 . Metzger's sign negative. Coordination: Tqmggv-ij-alaj testing and rapid alternating movements are normal Gait: Patient ambulates with a walker Review and summary of old records: EMG of the left upper extremity on 07/17/2024: A remote C8 radiculopathy on the left which is ganu-ng-yixlpbve. No evidence of plexopathy or mononeuropathy. Venous [...] plan, and return instructions documented in this encounterCedar County Memorial [id number] Miscellaneous Notes* Telephone Encounter - Angelica Dawson CMA - 08/04/2024 2:31 PM EST ----- Message from Dr. Loren Latham MD sent at 08/01/2024 12:06 PM EST ----- Regarding: Pathology Please let patient know that biopsies from EGD were negative for any issues. Thank you ----- Message ----- From: Interface - Lab Results/Orders In Sent: 07/31/2024 8:17 PM EST To: Loren Latham MD * Telephone Encounter - Angelica Dawson CMA - 08/04/2024 2:31 PM EST Spoke with patient regarding pathology results. Patient verbally understood with no further questions. documented in this encounterKindred [facility]11-[facility]-2024 Telephone encounter Note* Telephone Encounter - Angelica Dawson CMA - 08/04/2024 2:31 PM EST ----- Message from Dr. Loren Latham MD sent at 08/01/2024 12:06 PM EST ----- Regarding: Pathology Please let patient know that biopsies from EGD were negative for any issues. Thank you ----- Message ----- From: Interface - Lab Results/Orders In Sent: 07/31/2024 8:17 PM EST To: Loren Latham MD [facility] [employer] [id number] Telephone encounter Note* Telephone Encounter - Angelica Dawson CMA - 08/04/2024 2:31 PM EST Spoke with patient regarding pathology results. Patient verbally understood with no further questions. [facility] [employer] [id number] Miscellaneous Notes* Perioperative Nursing Note - Sakina Marvin RN - 07/22/2024 3:10 PM EST Preoperative Education Checklist- General Surgery date: 07/28/24 Surgery time: 914 Arrival time: 714 1. Bring a photo ID and your insurance card with you the day of surgery. You will check in at the main lobby of the [facility]- registration desk is straight ahead as soon as you walk in. Tell them you are here for surgery. 2. If you have a Living Will/Durable Power of Roofing Laborer for Health Care that is not on [...] after you have bathed. 5. NO nail icelandic/acrylic on at least one finger. If you are having a hand, wrist or foot surgery then all nail icelandic and artificial/acrylic nails must be removed from [...] please call the Preadmission Testing office at [phone], Mon.-Fri. 7 a.m.-3 p.m. Leave a voicemail [...] days prior to procedure documented in this encounterKindred [facility]11-12-2024 Nurse Note* Perioperative Nursing Note - Sakina Marvin RN - 07/22/2024 3:10 PM EST Preoperative Education Checklist- General Surgery date: 07/28/24 Surgery time: 0915 Arrival time: 714 1. Bring a photo ID and your insurance card with you the day of surgery. You will check in at the main lobby of the [facility]- registration desk is straight ahead as soon as you walk in. Tell them you are here for surgery. 2. If you have a Living Will/Durable Power of Roofing Laborer for Health Care that is not on [...] after you have bathed. 5. NO nail icelandic/acrylic on at least one finger. If you are having a hand, wrist or foot surgery then all nail icelandic and artificial/acrylic nails must be removed from [...] please call the Preadmission Testing office at [phone], Mon.-Fri. 7 a.m.-3 p.m. Leave a voicemail [...] Stop taking 0 days prior to procedure Qbix11-07-2024 History of Present illness Narrative* KALI Wolfe - 07/17/2024 9:00 AM EST Images from the original note were not included. Reason for Appointment: EMG Patient: Sheila Mac : 1950 EMG Computer: Natus 1 Referring Physician: Dr. Raven Sesay EMG: CINTHYA logging supervisor: Jarrett Palmer RT(R) Office Location: [place] Reason for EMG: c/o numbness/tingling in left hand especially in 3rd 4th 5th digits, weakness in left hand. Hx of surgery to neck. No hx of DM. Taking ASA & Plavix. Comments: Procedure was explained to the patient & who expressed understanding. Patientappeared to have tolerated the test well despite some discomfort due to the nature of the test. documented in this encounterCedar County Memorial [id number] History of Present illness Narrative* Kaitlin Macdonald, SYSTEM TRAINER-LINE CONSTRUCTION SUPERINTENDENT - 07/16/2024 11:30 AM EST Images from [...] Diagnosis Date COPD (chronic obstructive pulmonary disease) ([facility]) Diverticulitis GERD (gastroesophageal reflux disease) Hyperlipidemia Hypertension Pancreatitis Peptic ulceration PONV (postoperative nausea and vomiting) Stroke ([facility]) x2, patient states light strokes Visual impairment Past Surgical History: Procedure Laterality Date APPENDECTOMY BACK SURGERY LOWER CHOLECYSTECTOMY 2017 COLONOSCOPY COLONOSCOPY N/A 05/26/2021 Performed by Freeman Michelle DO at [facility] EGD N/A 10/01/2017 Performed by Freeman Michelle DO at [facility] ESOPHAGOGASTRODUODENOSCOPY ESOPHAGOGASTRODUODENOSCOPY N/A 05/26/2021 Performed by Freeman Michelle DO at [facility] HYSTERECTOMY KNEE ARTHROSCOPY Right patient denies sugery, [...] Interpersonal Safety: Unknown (11/01/2023) Received from [facility] Safety & Environment Fear of Current or [...] patient/family/caregiver Referring and communicating with other health restorative care technician Vomiting in adult [R11.10] TAMIE REYES [facility] General Surgery [place] This note was created with the assistance of a speech recognition program. While intending to generate a timely document that accurately reflects the content of the visit, no guarantee can be provided that every grammatical or spelling mistake has been or will be identified or corrected. Thank you for your understanding. TAMIE Reyes 07/16/24 1232 documented in this encounterKindred Hospital [facility]11-05-2024 History of Present illness Narrative* Cleve Sheth DO - 07/15/2024 10:30 AM EST Images from the original note were not included. HISTORY OF PRESENT ILLNESS: Sheila Mac is an 74 y.o. @ female. Chief complaint RT hip pain RT hip: using calcitonin NS Pt went to [facility] ER 06/13, X-rays done pelvis and lumbar. RX for lidoderm patches given, she states she could hardly walk. RT hip pain x 3-4 months, worsened on 05/31 after going to the grocery store. Denies injury. She hadinjections at [facility] in April without relief. She saw Dr Thompson 06/02 and 06/04, given IM injections-no relief. She is walking better, using rollator. Mild ache in the thigh. Using pain spray daily Saw Dr Thompson 06/02 and 06/04. XR done at [facility] 06/02/24. Using hot icy hot. Given IM torodol, Tramadol RX and PT ordered, XR [place] [facility] 06/05/24, MRI [facility] 06/12/24, [facility] ER 06/13/24, lidoderm patches, calcitonin [...] IMAGING: June 05, 2024 x-rays from the [place] office AP pelvis and lateral of the right hip demonstrate an intact hip joint space. There are no fractures detected. The bone has an osteopenic appearance.The joint spaces are symmetric. There is no obvious effusion or soft tissue swelling. Impression: No acute findings on x-rays of the right hip Hemal Sheth D.O. MRI of the right hip from the [facility] center. There is a sacral insufficiency fracture [...] of multiple pubic rami, right, initial encounter ([facility]) S32.591A calcitonin, salmon, (Miacalcin) 200 UNIT/ACT [...] Dr. Sheth/ashley Sheth D.O. documented in this encounterCedar County Memorial [id number] History of Present illness Narrative* Raven Sesay [...] Diverticulosis OTHER SURGICAL HISTORY 2017 perforated ulcer DC AR[facility] KNE SURG W/MENISCECTOMY MED/LAT W/SHVG Right [...] , wrist extensors , wrist flexor , educational institution curator strength 5/5. LUE Strength deltoid , biceps , triceps , wrist extensors , wrist flexor , educational institution curator strength 5/5. RLE Strength illopsoas, quadriceps, tibialis [...] reflex 0 . Metzger's sign negative. Coordination: Gqmkkb-ow-grhe testing and rapid alternating movements are normal [...] plan, and return instructions documented in this encounterCedar County Memorial [id number] History of Present illness Narrative* Cleve Sheth DO - 06/17/2024 1:30 PM EDT Images from the original note were not included. HISTORY OF PRESENT ILLNESS: Sheila Mac is an 74 y.o. @ female. Chief complaint RT hip pain RT hip: here for MRI results [facility] 06/12/24 Pt went to [facility] ER 06/13, X-rays done pelvis and lumbar. RX for lidoderm patches given, she states she could hardly walk. RT hip pain x 2-3 months, worsened on 05/31 after going to the grocery store. Denies injury. She hadinjections at [facility] in April without relief. She [...] Thompson 06/02 and 06/04. XR done at [facility] 06/02/24. Using hot icy hot. Given IM torodol, Tramadol RX and PT ordered, XR [place] [facility] 06/05/24, MRI [facility] 06/12/24, [facility] ER 06/13/24, lidoderm patches I [...] HISTORY: Past Medical History: Diagnosis Date Diabetes ([facility]) Diverticulitis Gastric ulcer GERD (gastroesophageal reflux disease) HTN (hypertension) ([facility]) Osteoporosis ([facility]) Pancreatitis Rheumatic fever ALLERGIES: Allergies Allergen [...] IMAGING: June 05, 2024 x-rays from the [place] office AP pelvis and lateral of the right hip demonstrate an intact hip joint space. There are no fractures detected. The bone has an osteopenic appearance.The joint spaces are symmetric. There is no obvious effusion or soft tissue swelling. Impression: No acute findings on x-rays of the right hip Hemal Sheth D.O. I reviewed an MRI of the right hip from the [place] [facility] center. There is a sacral insufficiencyfracture and suspected insufficiency fractures of the right superior and inferior pubic rami. The right hip joint is intact and there are no fractures in the hip. There is loss of articular cartilage in the right hip consistent with arthritis. ASSESSMENT: ICD-10-CM 1. Chronic right hip pain M25.551 G89.29 2. Sacral insufficiency fracture, initial encounter ([facility]) M84.48XA 3. Closed fracture of multiple pubic rami, right, initial encounter ([facility]) S32.591A calcitonin, salmon, (Miacalcin) 200 UNIT/ACT nasal [...] Dr. Sheth/ashley Sheth D.O. documented in this encounterCedar County Memorial [id number] History of Present illness Narrative* Cleve Sheth, DO - 06/05/2024 1:30 PM EDT Images from the original note were not included. HISTORY OF PRESENT ILLNESS: Sheila Mac is an 74 y.o. @ female. Chief complaint RT hip pain New problem: RT hip pain. Dr Thompson referral. XR [facility] 06/03/24 RT hip pain x 2-3 months, worsened on 05/31 after going to the grocery store. Denies injury. She hadinjections at [facility] in April without relief. She saw Dr Thompson 06/02 and 06/04, given IM injections-no relief. She is having difficulty walking, using a walker. Pain with WB. Pain in the buttock, hamstringand inner thigh. Pain can be aching and sharp. Difficulty with sit to stand. Pain 1/10 at rest, goes to 10+/10 with WB. 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 Taking TYL, using icy hot. Saw Dr Thompson 06/02 and 06/04. XR done at [facility] 06/02/24. Using hot icy hot. [...] HISTORY: Past Medical History: Diagnosis Date Diabetes ([facility]) Diverticulitis Gastric ulcer GERD (gastroesophageal reflux disease) HTN (hypertension) ([facility]) Osteoporosis (CMS/HCC) Pancreatitis Rheumatic fever ALLERGIES: Allergies [...] report of the right hip from the [facility] dated May of 2024 slightnarrowing of the [...] Dr. Sheth/ashley Sheth D.O. documented in this encounterCedar County Memorial [id number] Telephone encounter Note* Telephone Encounter - Bella Saavedra - 06/05/2024 11:40 AM EDT $40.00 copay / Prior auth needed. [id number] Miscellaneous Notes* Telephone Encounter - Bella Saavedra - 06/05/2024 11:40 AM EDT $40.00 copay / Prior auth needed. documented in this encounterCedar County Memorial [id number] Procedure [facility]05-28-2024 Procedure [facility]04-07-2023 NoteCardiology Follow Up Progress Note [...] agreeable. She will be (more content not included)...[facility] 12-15-2022 NoteReview of Systems Cardiovascular: Positive for leg swelling. Respiratory: Positive for shortness of breath. Skin: Positive for color change. Neurological: Positive for headaches. All other systems reviewed and are negative.[facility] 07-25-2022 NotePROCEDURE: MRA NECK WO CON HISTORY: [...] Electronically authenticated by: DANIEL PINEDA Date: 2022-07-25 13:25[facility] [id number] NotePROCEDURE: XR FOOT LT MIN 3 VIEWS HISTORY: Pain in left foot ; acute plantar pain COMPARISON: None. FINDINGS: BONES:No fracture, acute abnormality, or significant arthropathy. SOFT TISSUES:No visible soft tissue swelling. EFFUSION:None visible. OTHER: Negative. IMPRESSION: 1. No acute abnormality, significant degenerative changes, or findings to account for patient's symptoms. Electronically authenticated by: DANIEL PINEDA Date: 2022-05-11 12:51[facility] [id number] NotePROCEDURE: XR KNEE LT 4V or > COMPARISON: None. HISTORY: Osteoarthritis FINDINGS: BONES:No fracture, acute abnormality, or significant arthropathy. SOFT TISSUES:Negative. No visible soft tissue swelling. EFFUSION:Moderate suprapatellar joint effusion OTHER: Negative. IMPRESSION: Moderate joint effusion Electronically authenticated by: GODWIN BECK Date: 2022-02-14 17:30[facility] HospitalEvaluation noteNo assessment information availableHarrison Community Hospital Work Phone: Evaluation note* Diagnosis Onset Date Resolution Status Duodenal diverticulum acute Hiatal hernia acute IBS (irritable bowel syndrome) acute Screening for colon cancer a [facility] Work Phone: Evaluation note* Diagnosis Chronic right hip pain- Primary Sacral insufficiency fracture, initial encounter ([facility]) Closed fracture of multiple pubic rami, right, initial encounter ([facility]) documented in this encounter [facility] HealthcareEvaluation note* Diagnosis Paresthesia- Primary Disturbance of skin sensation documented in this encounter [facility] HealthcareEvaluation note* Diagnosis Chronic right hip pain- Primary Sacral insufficiency fracture with routine healing, subsequent encounter Closed fracture of multiple pubic rami, right, initial encounter ([facility]) documented in this encounter [facility] HealthcareEvaluation note* Diagnosis Cervical radiculopathy- Primary Brachial neuritis or radiculitis nos Paresthesia Disturbance of skin sensation documented in this encounter [facility] HealthcareEvaluation note* Diagnosis Left hand pain- Primary Pain in soft tissues of limb Primary osteoarthritis of hand, unspecified laterality documented in this encounter [facility] HealthcareEvaluation note* Diagnosis Chronic right hip pain- Primary documented in this encounter [facility] HealthcareEvaluation note* Diagnosis Vomiting in adult- Primary History of gastric ulcer Chronic GERD Hiatal hernia Diaphragmatic hernia without mention of obstruction or gangrene Dysphagia, unspecified type [facility] Diagnosis Bright red blood per rectum- Primary Hemorrhage of rectum and anus documented in this encounter [facility] SystemHistory and physical note Author Ben Sanchez [facility] February 05, 2024 1:08pm Note Date/Time February 05, 2024 1:08p akosua [facility] [address] [place] [address] Gastroenterology H&P Signed Patient: Sheila Mac MR#: [id number] : 1950 Acct:[id number] Age/Sex: 73 / F Adm Date: 4 Loc: Room: Type: [facility] Attending Dr: Ben Sanchez MD [...] MD Documented By: Ben Sanchez MD 02/05/24 8575 Signed By: <Electronically signed by Ben Sanchez MD> 02/05/24 1304 [facility] Work Phone: History and physical note Author Ben Sanchez [facility] March 26, 2024 10:37am Note Date/Time March 26, 2024 10:3 7am [facility] [address] [place] [address] Gastroenterology H&P Signed Patient: Sheila Mac MR#: [id number] : 1950 Acct:[id number] Age/Sex: 73 / F Adm Date: 4 Loc: Room: Type: [facility] Attending Dr: Ben Sanchez MD [...] signed by Ben Sanchez MD> 03/26/24 1037 [facility] Work Phone: Hospital Discharge instructionsAmbulatory Orders* Referral to Orthopedic Surgery Location: None [facility] Work Phone: InstructionsNot on filedocumented in this encounter [facility] SystemInstructionsNot on filedocumented in this encounter [facility] SystemInstructionsNot on filedocumented in this encounter [facility] SystemInstructionsNot on filedocumented in this encounter [facility] SystemInstructions* Attachments The following attachments cannot be sent through Care Everywhere. * Hemorrhoids (Slovak) documented in this encounterProMedica Health SystemReason for referral (narrative)No reason for referral information availableMagruder Hospital Ctr Work Phone: Reason for visit Narrative* Consultation (Routine) - Closed Specialty Diagnoses / Procedures Referred By Nadine t Referred To Contact Neurology Diagnoses Brachial plexopathy Ulnar neuropathy of left upper extremity Procedures DC OFFICE/OUTPATIENT [facility] MDM 60 MINUTES Cleve Sheth, [address] [facility] [address] [place] [address] Phone: tel: fax: Daniel Patiño MD [address] [place] [address] Phone: tel: fax: Referral ID Status Reason Start Date Expiration Date V isits Requested Visits Authorized [id number] Closed Consult and Treat 2024 10/05/2024 1 [...] February 26, 2025 10:1 3am Ref: Dr. Calvert- Thoracic Spine Pain March 11, 2025 7:53am [...] February 26, 2025 10:1 3am Ref: Dr. Calvert- Thoracic Spine Pain March 11, 2025 7:53am [...] February 26, 2025 10:1 3am Ref: Dr. Calvert- Thoracic Spine Pain March 11, 2025 7:53am [...] February 26, 2025 10:1 3am Ref: Dr. Calvert- Thoracic Spine Pain March 11, 2025 7:53am [...] February 26, 2025 10:1 3am Ref: Dr. Calvert- Thoracic Spine Pain March 11, 2025 7:53am M54.6 - Pain in thoracic spine March 11, 2025 8:42am Review Imaging Results March 26, 2025 2 :23pm [facility] April 02, 2025 8:55 am M25.511 - Pain in right shoulder April 022024 9:53am CONSULT DR CALVERT DEXA DONE [facility] 03/02 ust 2024 1:29pm Reason for Visit [...] February 26, 2025 10:1 3am Ref: Dr. Calvert- Thoracic Spine Pain March 11, 2025 7:53am M54.6 - Pain in thoracic spine March 11, 2025 8:42am Review Imaging Results March 26, 2025 2 :23pm [facility] April 02, 2025 8:55 am M25.511 - Pain in right shoulder April 022024 9:53am CONSULT DR CALVERT DEXA DONE [facility] 03/02 ust 2024 1:29pm 1 mo fu [...] back pain May 04, 2025 8: 05am Chief Complaint Admit Date low back pain February 19, 2025 2:18 pm M81.0 M43.16 M54.2 February 26, 2025 10:1 3am Ref: Dr. Calvert- Thoracic Spine Pain March 11, 2025 7:53am M54.6 - Pain in thoracic spine March 11, 2025 8:42am Review Imaging Results March 26, 2025 2 :23pm [facility] April 02, 2025 8:55 am M25.511 - Pain in right shoulder April 022024 9:53am CONSULT DR CALVERT DEXA DONE [facility] 03/02 ust 2024 1:29pm 1 mo fu trigger points/ consider shoulde r inj May 04, 2025 8:05am Unknown May 13, 2025 10:46am Additional Source Comments INFORMATION SOURCE (unrecogn ized section and content) DATE CREATED AUTHOR 11/24/2018 [facility] DATE CREATED AUTHOR AUTHOR'S ORGANIZ ATION 12/19/2022 [facility] DATE CREATED AUTHOR AUTHOR'S ORGANIZ ATION 01/18/2023 [facility] DATE CREATED AUTHOR AUTHOR'S ORGANIZ ATION 08/04/2024 [facility] DATE CREATED AUTHOR AUTHOR'S ORGANIZ ATION 08/12/2024 [facility] DATE CREATED AUTHOR AUTHOR'S ORGANIZ ATION 12/27/2024 [facility] DATE CREATED AUTHOR AUTHOR'S ORGANIZ ATION 04/02/2025 [facility] DATE CREATED AUTHOR AUTHOR'S ORGANIZ ATION 05/15/2025 [facility] Care Teams (unrecognized sec tion and content) Team Status: Active Member Role Status Fifi Thompson MD Primary Care Provider Active Team Status: Inactive Member Role Status Fifi Thompson MD Primary Care Provider Active Start: February 19, 2025 End: February 19, 2025 Vasyl Calvert MD Attending Provider Active Star t: February 19, 2025 End: February 19, 2025 Team Status: Inactive Member Role Status Fifi Thompson MD Primary Care Provider Active Start: February 26, 2025 End: February 26, 2025 Vasyl Calvert MD Attending Provider Active Star t: February 26, 2025 End: February 26, 2025 Team Status: Inactive Member Role Status Fifi Thompson MD Primary Care Provider Active Start: March 11, 2025 End: March 11, 2025 Rickie Saucedo MD Attending Provider Active Sta rt: March 11, 2025 End: March 11, 2025 Vasyl Calvert MD Referring Provider Active Star t: March 11, 2025 End: March 11, 2025 Team Status: Active Member Role Status Fifi Thompson MD Primary Care Provider Active Start: March 11, 2025 Rickie Saucedo MD Attending Provider Active Sta rt: March 11, 2025 Team Status: Active Member Role Status Fifi Sanchez MD Attending Provider Active S tart: January 16, 2024 Team Status: Inactive Member Role Status Fifi Sanchez MD Attending Provider Active S tart: February 05, 2024 End: February 05, 2024 Krzysztof Thompson MD Primary Care Provider Active Start: February 05, 2024 End: February 05, 2024 Team Status: Active Member Role Status Fifi Sanchez MD Attending Provider, Other Provide r Active Start: February 05, 2024 Krzysztof Thompson MD Primary Care Provider Active Start: February 05, 2024 Team Status: Inactive Member Role Status Fifi Sanchez MD Attending Provider Active S tart: February 19, 2024 End: February 19, 2024 Krzysztof Thompson MD Primary Care Provider Active Start: February 19, 2024 End: February 19, 2024 Team Status: Inactive Member Role Status Fifi [...] Provide r Active Start: March 26, 2024 Filters Assembler Relationship Specialty Start Date End Date Krzysztof Thompson MD [address] [place] [address] PCP - General Family Medicine 01/09/24 Filters Assembler Relationship Specialty Start Date End Date Krzysztof Thompson MD [address] [place] [address] PCP - General Family Medicine 01/09/24 Filters Assembler Relationship Specialty Start Date End Date Krzysztof Thompson MD [address] [place] [address] PCP - General Family Medicine 01/09/24 Filters Assembler Relationship Specialty Start Date End Date Krzysztof Thompson MD [address] [place] [address] PCP - General Family Medicine 01/09/24 Filters Assembler Relationship Specialty Start Date End Date Krzysztof Thompson MD [address] [place] [address] PCP - General Family Medicine 01/09/24 Raven Sesay DO [address] [id number] Referring Physician Neurology 07/14/24 Filters Assembler Relationship Specialty Start Date End Date Krzysztof Thompson MD [address] [place] [address] PCP - General Family Medicine 01/09/24 Raven Sesay DO [address] [address] Referring Physician Neurology 07/14/24 Filters Assembler Relationship Specialty Start Date End Date Krzysztof Thompson MD [address] [facility] [place] [address] PCP - General Family Medicine 01/09/24 Raven Sesay DO [address] [address] Referring Physician Neurology 07/14/24 Filters Assembler Relationship Specialty Start Date End Date Krzysztof Thompson MD [address] [place] [address] PCP - General Family Medicine 01/09/24 Raven Sesay DO [address] [address] Referring Physician Neurology 07/14/24 Filters Assembler Relationship Specialty Start Date End Date Krzysztof Thompson MD [address] [place] [address] PCP - General Family Medicine 01/09/24 Raven Sesay DO [address] [address] Referring Physician Neurology 07/14/24 Filters Assembler Relationship Specialty Start Date End Date Krzysztof Thompson MD PCP General 03/15/17 Filters Assembler Relationship Specialty Start Date End Date Krzysztof Thompson MD PCP General 03/15/17 Filters Assembler Relationship Specialty Start Date End Date Krzysztof Thompson MD PCP General 03/15/17 Filters Assembler Relationship Specialty Start Date End Date Krzysztof Thompson MD [facility] General 03/15/17 Filters Assembler Relationship Specialty Start Date End Date Krzysztof Thompson MD [facility] 03/15/17 Team Status: Inactive Member Role Status Fifi Thompson MD Primary Care Provider Active Start: March 11, 2025 End: March 11, 2025 Rickie Saucedo MD Attending Provider Active Sta rt: March 11, 2025 End: March 11, 2025 Team Status: Inactive Member Role Status Fifi Thompson MD Primary Care Provider Active Start: March 26, 2025 End: March 26, 2025 Vasyl Calvert MD Attending Provider Active Star t: March [...] May 04, 2025 End: May 04, 2025 Team Status: Inactive Member Role Status Dates Krzysztof Thompson MD Attending Provider Active Sta rt: May 13, 2025 End: May 13, 2025 Reason for Visit (unrecogniz ed section and content) Reason Comments Pain Reason Onset Date Comments PT Initial Eval 06/05/2024 Contacted [facility] to schedule PT eval per Dr. Thompson. [...] Comments Heartburn GERD, referred by Manish Luciano, LINE CONSTRUCTION SUPERINTENDENT Reason Comments Rectal Bleeding Rectal bleeding, las t colon with Dr. Sanchez at [facility] in 12/2023 Goals (unrecognized section and content) [...] BE BASED ON THE PRIMARY CLINICAL RECORDS. [employer] provides no warranty or guarantee of the accuracy or completeness of information in this document.
== END 2025-05-19 07:05 | disposition home or self-care (01) ==
LOC: US 07:04
PROVIDERS: PCP Family Medicine; Visit Provider Family Medicine
DX: N39.0 Urinary tract infection, site not specified (principal)
CPT/HCPCS: 76770

== ENCOUNTER 2025-07-14 08:12 | Outpatient (OUT) | payer MEDICARE, SELFPAY ==
--- OUTSIDE RECORDS SUMMARY | 2025-07-14 08:21 | XMS_ITS | CCD ---
Author Organization [facility] CliniSywv Care Team Providers Care Boarding House Manager Name Role Phone PHYSICIAN, DEFAULT Admitting [...] PROVIDER Attending Unavailable KRZYSZTOF THOMPSON Referring Unavailable JASONY, KRZYSZTOF Primary Care Unavailable RODRIGUEZ RIVERA Attending Unavailable HOY ., DR BLANKENSHIP Attending Unavailable HOY ., DR BLANKENSHIP Consulting Unavailable HOY ., DR BLANKENSHIP Primary Care Unavailable HOY ., DR BLANKENSHIP Admm[place] Unavailable AUBURN, DR GODWIN Cardona Consulting Unavailable HOY ., [...] Unavailable HAY ., DR STRATTON Consulting Unavailable AMANDA, GONZALEZ Consulting Unavailable LEONEL ., APRIL Consulting Unavailable HOY ., DR BLANKENSHIP Attending Unavailable HOY ., DR BLANKENSHIP Consulting Unavailable HOY ., DR BLANKENSHIP Primary Care Unavailable HOY ., DR BLANKENSHIP Admitting Unavailable ZIEBER, DR DANIEL Erazo Consulting Unavailable PAY ., DR JACINTO Consulting Unavailable JUMMA, MOJOSE Consulting Unavailable BOYD, VANESSA Consulting Unavailblane ELAINE, [...] Erazo Consulting Unavailable HOY ., DR BLANKENSHIP Admitting Unavailable HOY ., DR BLANKENSHPI Attending Unavailable [...] Unavailable DONNA ., DR BLANKENSHIP Attending Unavailable JASONY ., DR BLANKENSHIP Primary Care Unavailable MD Ben Sanchez Attending Provider MD Krzysztof Thompson Primary Care Provider [phone] Krzysztof Thompson MD Primary Care Provider [phone] Raven Sesay DO Unavailable [phone] KRZYSZTOF THOMPSON Primary Care Unavailable FREEMAN WARD Attending Unavailab le KRZYSZTOF THOMPSON Referring Unavailable KRZYSZTOF THOMPSON Primary Care Unavailable CHRISTOPHER, NIDIA Marmolejo Admitting Unavailable NIDIA WHITE Attending Unavailable KRZYSZTOF THOMPSON Primary Care Unavailable DARSHAN HERNANDEZ Attending Unavailable MERYL, CLEVE Arguelles Attending Unavailable MERYL, CLEVE Arguelles Attending Unavailable MERYL, CLEVE Arguelles Attending Unavailable MERYL, CLEVE Arguelles Referring Unavailable MERYL, CLEVE Arguelles Referring Unavailable MERYL, CLEVE Arguelles Attending Unavailable RAVEN SESAY Attending Unavailable MERYL, CLEVE Arguelles Referring Unavailable MERYL, CLEVE Arguelles Attending Unavailable RAVEN SESAY Attending Unavailable RAVEN SESAY Attending Unavailable Krzysztof Thompson MD Primary Care Provider [phone] Krzysztof Thompson MD Primary Care Provider [phone] Krzysztof Thompson MD Primary Care Provider [phone] Vasyl Calvert MD Attending Provider [phone] Rickie Saucedo MD Attending Provider Vasyl Calvert MD Referring Provider Yael Atwood MD Attending UnavailYael Riggs MD Attending UnavailRickie Feliciano MD Attending Provider [phone] Krzysztof Thompson MD Attending Provider [phone] Krzysztof Thompson Primary Care Unavailable Vasyl Calvert Admitting Unavailable Vasyl Calvert Attending Unavailable Rickie Saucedo Attending Unavailable Hoy, Krzysztof M Primary Care Unavailable Rickie Saucedo Admitting Unavailable Rickie Saucedo Attending Unavailable Hoy, Krzysztof M Primary Care Unavailable FelterRickie Admitting Unavailable Hoy, Krzysztof M Admitting Unavailable Hoy, Krzysztof M Attending Unavailable KAITLIN MACDONALD Attending Unavailable HOY, KRZYSZTOF M Referring Unavailable HOY, KRZYSZTOF M Primary Care Unavailable KAITLIN MACDONALD A Attending Unavailable HOY, KRZYSZTOF M Referring Unavailable HOY, KRZYSZTOF M Primary Care Unavailable MACDONALDROBYNKAITLIN A Attending Unavailable HOY, KRZYSZTOF M Referring Unavailable HOY, KRZYSZTOF M Primary Care Unavailable Allergies Allergy ClassificationReported Allergen(s)Allergy TypeDate of OnsetReaction(s) Facility (17 sources)Morphine; Translations: [MORPHINE]Drug Otkyljr52-09-9494GdsjgxjkYro [facility] Repository (7 sources)NSAIDs; Translations: [NSAIDS (NON-STEROIDAL ANTI-INFLAMMATORY DRUG)] Drug allergy (disorder)15-36-1240HT BleedingThe [facility] (1 source)PenicillinDrug Nbuszzc70-67-2532Mvd [facility] Repository (1 source)predniSONEDrug Uteawap13-05-5877Csx [facility] Repository (2 sources)Iodinated Contrast- Oral and IV DyeDrug allergy (disorder)11-11-2014 [facility] Repository (20 sources)Penicillins; Translations: [PENICILLINS]Propensity to adverse reactions to drug (disorder)46-49-3555IxprDnaejjwliwDet[facility] (20 sources)IODINATED CONTRAST MEDIA; Translations: [IODINATED CONTRAST MEDIA] Propensity to adverse reactions to drug (disorder)14-40-8816Xrshgwnwmyr, Other (See Comments)[facility] Repository (1 source)levoFLOXacinDrug Povvaoe67-43-5707Slc [facility] Repository (1 source)meloxicamDrug Bzymcoc23-71-3309Uqs [facility] Repository (12 sources)NSAIDS (Non-Steroidal Anti-Inflamma; Translations: [NSAIDS (Non- Steroidal Anti-Inflamma]Propensity to adverse glsvetfri86-46-1652Xsiaihv Ulcer [facility] [place]onComment on above:pt has stomach ulcer (20 sources)MorphineDrug Rlrrmyq99-09-0955Zhrcqt And Vomiting, [facility]itingN[facility] (9 sources)Non-steroidal anti-inflammatory agentPropensity to adverse reactions 63-78-6274Hraz, GI BleedingNOMS Healthcare (8 sources)Contrast media; Translations: [DYE]Propensity to adverse reactions to drug (disorder)78-39-2060BlekbyhwVspThyekq Repository (8 sources)MORPHOLINE ANALOGUES; Translations: [MORPHOLINE ANALOGUES]Propensity to adverse reactions to drug (disorder)70-74-6798CkxcditzJxyMoxwwe Repository (3 sources)Non-steroidal anti-inflammatory agentPropensity to adverse reactions to wlly91-29-9009ST [facility] (1 source)MorphineDrug Rggdxxd00-82-4259YkyskjgqkSelect [facility] [place] Rep[facility] Medications Current Medications MedicationDrug Class(es)DatesSig (Normalized)Sig (Original)acetaminophen 500 mg oral tablet (20 sources)take 1 tablet by mouth every six hours as needed for pain acetaminophen (TYLENOL) 500 mg tablet Take 1 tablet (500 mg total) by mouth every 6 (six) hours as needed for pain. Activeaspirin 81 mg delayed release oral tablet (20 sources)Platelet Aggregation Inhibitor, Nonsteroidal Anti-inflammatory Drug Start: 82-39-4614kzsy 1 tablet by mouth in the morningaspirin 81 mg Take 1 tablet (81 mg total) by mouth in the morning. 02/19/2024 Activeclopidogrel 75 mg oral tablet (20 sources)P2Y12 Platelet InhibitorStart: 52-11-9603aafz 1 tablet by mouth in the morningclopidogreL (PLAVIX) 75 mg tablet Take 1 tablet (75 mg total) by mouth in the morning. 01/28/2024 PzwypfEoacywkoads-Zjwivelbd-Ppwvknqb (8 sources)Start: 75-03-4373Cpxbymkcfef-Umeclidin-Vilanter (Trelegy Ellipta) 200-62.5-25 mcg blister with device Active 1 INH INHALATION Daily February 19, 2025 12:00am Complies with drug therapyStart: 99-71-4450jipwingjyq 100 mg oral capsule (2 sources)Anti-epileptic AgentStart: 08-11-2024 End: 59-82-1145jnfh 1 capsule by mouth in the morninggabapentin (Neurontin) 100 MG capsule Indications: Left hand pain Take 1 capsule (100 mg) by mouth in the morning and 1 capsule (100 mg) before bedtime. 60 capsule 2 08/11/2024 11/09/2024 Activemetoprolol tartrate 50 mg oral tablet (20 sources)beta-Adrenergic BlockerStart: 30-99-7143ktyr 1 tablet by mouth twice dailyStart: 72-82-3763ohtxijoecc tartrate (Lopressor) 25 MG tablet 03/27/2024 Activepantoprazole 40 mg delayed release oral tablet (20 sources)Proton Pump InhibitorStart: 01-28-2024 End: 86-17-8512qbykdv calcitonin 200 unt/actuat nasal spray (16 sources)CalcitoninStart: 06-17-2024 End: 93-90-3328ikzm 1 spray(s) nasal route in the morningcalcitonin, salmon, (MIACALCIN) 200 unit/actuation nasal spray Administer 1 spray into alternating n ostrils in the morning. 07/15/2024 08/14/2024 Activesucralfate 1000 mg oral tablet (20 sources)Aluminum ComplexStart: 23-46-3294oejd 1 tablet by mouth four times dailysucralfate (Carafate) 1 g tablet TAKE 1 TABLET BY MOUTH ON AN EMPTY STOMACH FOUR TIMES DAILY 03/18/2024 ActiveStart: 43-32-6691zvro 1 tablet by mouth twice dailyStart: 01-28-2024 End: 58-36-4069unqm 1 tablet by mouth four times dailySucralfate 1 gram tablet Discontinued 1 GM PO Four times daily January 28, 2024 12:00am February 19, 2024 9:15amtiZANidine 2 mg oral capsule (8 sources)Central alpha-2 Adrenergic AgonistStart: 37-64-8480grbk 1 capsule by mouth twice daily as needed Completed/Discontinued Medications MedicationDrug Class(es)DatesSig (Normalized)Sig (Original)atorvastatin 20 mg oral tablet (20 sources)HMG-CoA Reductase InhibitorStart: 01-28-2024 End: 18-48-1400tmwu 1 tablet by mouth once daily at bedtimeAtorvastatin 20 mg tablet Discontinued 20 MG PO Daily at bedtime January 28, 2024 12:00am February 19, 2025 2:58pm End: 73-32-3647ofav 1 tablet by mouth in the morningatorvastatin (LIPITOR) 40 mg tablet Take 1 tablet (40 mg total) by mouth in the morning. 12/25/2024 Discontinued (Discontinued by another clinician)cetirizine hydrochloride 10 mg oral tablet (11 sources)Histamine-1 Receptor AntagonistStart: 01-28-2024 End: 36-52-2332wstr 1 tablet by mouth once daily in the morningCetirizine 10 mg tablet Discontinued 10 MG PO Every morning January 28, 2024 12:00am February 19, 2024 9:13am1 ml denosumab 60 mg/ml prefilled syringe (1 source)RANK Ligand Inhibitor End: 26-97-5292muegoa 60 mg by subcutaneous injection oncedenosumab (PROLIA) 60 mg/mL syringe injection Inject 60 mg under the skin once. 07/16/2024 Discontin ued (Discontinued by another clinician)lactulose 667 mg/ml oral solution (20 sources)Osmotic LaxativeStart: 02-19-2024 End: 78-86-3662sgst 1 mL by mouth twice dailyLactulose 10 gram/15 mL solution Discontinued 30 ML PO Twice daily 1800 30 February 19, 2024 9:26am August 12, 2024 12:13pmStart: 01-28-2024 End: 27-03-3067evbr 1 mL by mouth once daily in the morningLactulose 10 gram/15 mL solution Discontinued 15 ML PO Every morning January 28, 2024 12:00am February 9:15amlidocaine 0.05 mg/mg medicated patch (1 source)Antiarrhythmic, Amide Local AnestheticStart: 06-13-2024 End: 15-45-6964fhcju 1 dose transdermal route once daily, then apply 1 dose transdermal route every twelve hourslidocaine (LIDODERM) 5 % Indications: Left hip pain Place 1 patch on the skin daily. Remove & Discard patch within 12 hours or as directed by MD Guerrero patch 06/13/2024 07/16/2024 Discontinued (Patient Never Started This Medication)linaclotide 0.145 mg oral capsule (16 sources)Guanylate Cyclase-C AgonistStart: 08-13-2024 End: 25-88-3072mpwk 1 capsule by mouth once dailyLinaclotide (Linzess) 145 mcg capsule Discontinued 145 MCG PO Daily August 13, 2024 1:00amJun2024 2:58pmStart: 08-12-2024 End: 28-02-0513lpkk 1 capsule by mouth once dailyLinaclotide (Linzess) 72 mcg capsule Discontinued 72 MCG PO Daily August 12, 2024 1:00am August 13, 2024 5:40pmrosuvastatin calcium 20 mg oral tablet (1 source)HMG-CoA Reductase Inhibitor End: 07-00-7767hilz 1 tablet by mouth in the morningrosuvastatin (CRESTOR) 20 mg tablet Take 1 tablet (20 mg total) by mouth in the morning. 07/16/2024 Discontinued (Discontinued by another clinician)Sod Picosulf-Mag Ox-Citric Ac (10 sources)Start: 02-19-2024 End: 62-03-9244zzwp 1 dose by mouth once daily in the eveningSod Picosulf-Mag Ox-Citric Ac (Clenpiq) 10 mg-3.5 gram- 12 gram/175 mL solution Discontinued 175 MLPO Daily 175 February 19, 2024 12:00am August 12, 2024 12:12pm take first dose at 3:00 pm the day before colonoscopy, take second dose at 9:00 pm the day before colonoscopy.Start: 60-73-8886euzr 1 dose by mouth once daily in the eveningSod Picosulf-Mag Ox-Citric Ac (Clenpiq) 10 mg-3.5 gram- 12 gram/175 mL solution Active 175 ML PO Daily 175 February 19, 2024 12:00am take first dose at 3:00 pm the day before colonoscopy, take seconddose at 9:00 pm the day before colonoscopy. Problems Active Problems Problem ClassificationProblemDateDocumented DateEpisodic/ChronicAbdominal pain (1 source)Generalized abdominal pain; Translations: [GENERALIZED ABDOMINAL PAIN] Onset: 63-92-4148IfubrmaeFraop and unspecified renal failure (1 source)Acute kidney failure, unspecified; Translations: [ACUTE KIDNEY FAILURE UNSPECIFIED]Onset: 74-70-7575HuskyvmmOjuoq cerebrovascular disease (3 sources)Cerebral infarction, unspecified; Translations: [Cerebral infarction due to unspecified occlusion or stenosis of left carotid arteries]Onset: 59-13-4173EahcrcjHaduhsyr reactions (1 source)Radiographic dye allergy status; Translations: [RADIOGRAPHIC DYE ALLERGY STATUS]Onset: 62-66-4598ZhynavgdGltashvt of urinary tract (1 source)Personal history of urinary calculi; Translations: [PERSONAL HISTORY OF URINARY CALCULI]Onset: 12-39-6601HevvkdcvTnoeefn kidney disease (1 source)Chronic kidney disease, unspecified; Translations: [CHRONIC KIDNEY DISEASE UNSPECIFIED]Onset: 31-44-0695IfiwpdlQgizgpe obstructive pulmonary disease and bronchiectasis (4 sources)Chronic obstructive pulmonary disease, unspecified; Translations: [COPD UNSPECIFIED]Onset: 88-34-2609BwglotyCpaalfuekd heart failure; nonhypertensive (20 sources)Unspecified diastolic (congestive) heart failure; Translations: [Acute combined systolic (congestive) and diastolic (congestive) heart failure] Onset: 54-97-7569TrvlhybIcnwjsrf atherosclerosis and other heart disease (15 sources)Coronary atherosclerosis; Translations: [Atherosclerotic heart disease of [place] coronary artery without angina pectoris]Onset: 02-11-2010 34-55-7154DdpicmjSwcztyrenf and other anemia (1 source)Anemia, unspecified; Translations: [ANEMIA UNSPECIFIED]Onset: 44-87-1654QapcrswbGcagrixqqo and other anemia (1 source)Iron deficiency anemia, unspecified; Translations: [IRON DEFICIENCY ANEMIA UNSPECIFIED]Onset: 99-16-6459OrbueradXzzfenll mellitus without complication (16 sources)Type 2 diabetes mellitus without complications; Translations: [Diabetes mellitus without complication]Onset: 228987-11-6300Vgichyi Diabetes mellitus without complication (2 sources)Prediabetes; Translations: [Other abnormal glucose]Onset: 11-14-2022 EpisodicDisorders of lipid metabolism (17 sources)Pure hypercholesterolemia, unspecified; Translations: [Hyperlipidemia, unspecified]Onset: 318956-62-5405JpllwrgAeqfyjacbeleaz and diverticulitis (20 sources)Diverticulum of duodenum; Translations: [Diverticulosis of small intestine without perforation or abscess without bleeding]Onset: 09-12-2018 70-00-4438LlqgsmrQowetuggne disorders (20 sources)Gastro-esophageal reflux disease without esophagitis; Translations: [Gastroesophageal reflux disease]Onset: 112491-71-7198EhmsahgDckuqowaq hypertension (6 sources)Essential (primary) hypertension; Translations: [ESSENTIAL (PRIMARY) HYPERTENSION]Onset: 54-78-0411GafgjviDrlhm and electrolyte disorders (2 sources)Dehydration; Translations: [Hyperkalemia]Onset: 51-20-3887Johxmdjq Gastroduodenal ulcer (except hemorrhage) (6 sources)Gastric ulcer; Translations: [Gastric ulcer, unspecified as acute or chronic, without hemorrhage orperforation]35-30-7388YkavcnwAelfwxmwycwzi symptoms and ill-defined conditions (1 source)Personal history of urinary (tract) infections; Translations: [PERS HX URINARY TRACT INFECTIONS]Onset: 33-20-7492FgriuzbmZnwam valve disorders (1 source)Rheumatic tricuspid insufficiency; Translations: [RHEUMATIC TRICUSPID INSUFFICIENCY]Onset: 84-36-6901JerivbyKepgvilbvmch with complications and secondary hypertension (5 sources)Hypertensive heart disease with heart failure; Translations: [Hypertensive chronic kidney disease with stage 1 through stage 4 chronic kidney disease, or unspecified chronic kidney disease]Onset: 45-40-7864Jwmvpdm Intestinal obstruction without hernia (3 sources)Stricture of intestine; Translations: [Other intestinal obstruction unspecified as to partial versus complete obstruction]Onset: 06-23-2025 90-56-9712PlyuzblxBhayi disorders and dislocations; trauma-related (15 sources)Derangement of right knee; Translations: [Unspecified internal derangement of right knee]Onset: 671906-30-4682NavecgtFmvozuz and fatigue (1 source)Chronic fatigue, unspecified; Translations: [CHRONIC FATIGUE UNSPECIFIED]Onset: 48-99-2735OcigdgiMklcixo and fatigue (4 sources)Other fatigue; Translations: [OTHER FATIGUE]Onset: 78-59-5137Bzztafmf Nonspecific chest pain (5 sources)Chest pain, unspecified; Translations: [CHEST PAIN UNSPECIFIED]Onset: 19-97-7971EpijrzkbLmlvffrnnxm deficiencies (1 source)Vitamin D deficiency, unspecified; Translations: [VITAMIN D DEFICIENCY UNSPECIFIED]Onset: 32-17-7337DbklnwmFecvuquku or stenosis of precerebral arteries (5 sources)Occlusion and stenosis of unspecified carotid artery; Translations: [Occlusion and stenosis of bilateral carotid arteries]Onset: 83-81-5639Uxqybkb Osteoarthritis (18 sources)Unspecified osteoarthritis, unspecified site; Translations: [Osteoarthritis of left knee joint]Onset: hronic Osteoporosis (20 sources)Age-related osteoporosis without current pathological fracture; Translations: [Osteoporosis]Onset: 211144-92-1667IsvmzmdAsjny acquired deformities (20 sources)Lumbar spondylolisthesis; Translations: [Spondylolisthesis, lumbar region]12-32-4187IuxlmcnbIbpwe aftercare (2 sources)snf (current) use of aspirin; Translations: [USP (CURRENT) USE OF ASPIRIN]Onset: 42-27-5836LtheciwxCwcbs aftercare (1 source)Other correction (current) drug therapy; Translations: [OTH USP CURRENT DRUG THERAPY]Onset: 02-27-8249RzmpngydMreaf circulatory disease (1 source)Personal history of transient ischemic attack (TIA), and cerebral infarction without residual deficits; Translations: [PERS HX TIA AND CI NO RESID DEFICIT]Onset: 27-31-8448BkfxwbxqAnoks connective tissue disease (4 sources)Pain in left foot; Translations: [PAIN IN LEFT FOOT]Onset: 01-15-2023 EpisodicOther connective tissue disease (1 source)Other specified soft tissue disorders; Translations: [OTHER SPEC SOFT TISSUE DISORDERS]Onset: 59-33-1652IpcmzdweRbbgj connective tissue disease (1 source)Fibromyalgia; Translations: [FIBROMYALGIA]Onset: 27-11-2173Rkjavyez Other connective tissue disease (2 sources)Pain of left hand; Translations: [Pain in left hand]08-11-2024 EpisodicOther connective tissue disease (20 sources)Muscle pain; Translations: [Myalgia, unspecified site]03-11-2025 EpisodicOther fractures (4 sources)Fracture of multiple pubic rami; Translations: [Other specified fracture of right pubis, initial encounter for closed fracture]06-17-2024 EpisodicOther gastrointestinal disorders (10 sources)Irritable bowel syndrome; Translations: [Irritable bowel syndrome without diarrhea]65-28-3905FfxljchWyqen gastrointestinal disorders (2 sources)Irritable bowel syndrome without diarrhea; Translations: [Irritable bowel syndrome]45-92-4162JjczgbyAcjrt gastrointestinal disorders (8 sources)Irritable bowel syndrome characterized by constipation; Translations: [Irritable bowel syndrome with constipation]69-38-9295MbpzzmtQeosp gastrointestinal disorders (2 sources)Incontinence of feces; Translations: [Full incontinence of feces] 98-55-1010WaqgkvosArccs gastrointestinal disorders (1 source)Full incontinence of feces; Translations: [Full incontinence of feces] Onset: 64-75-8121WkrrnlxbRodjc gastrointestinal disorders (1 source)EncopresisOnset: 29-17-1807LxxidrtvAvckc hematologic conditions (4 sources)Other specified abnormalities of plasma proteins; Translations: [OTH SPEC ABNORM PLASMA PROTEINS]Onset: 17-08-8992UzbsofplAyafq hereditary and degenerative nervous system conditions (1 source)Restless legs syndrome; Translations: [RESTLESS LEGS SYNDROME]Onset: 19-67-0241JyympjfSpycf lower respiratory disease (6 sources)Shortness of breath; Translations: [SHORTNESS OF BREATH]Onset: 89-57-9080HlnlommgDhgqs lower respiratory disease (3 sources)Dyspnea, unspecified; Translations: [Dyspnea, unspecified]Onset: 92-81-1662RxnfhbvwBfgnp lower respiratory disease (1 source)Personal history of pneumonia (recurrent); Translations: [PERSONAL HX OF PNEUMONIA RECURRENT]Onset: 81-95-2558XuuowtoeJgcid nervous system disorders (3 sources)Aphasia; Translations: [APHASIA]Onset: 57-78-2250JphhvwaWlnfc nervous system disorders (15 sources)Disorder of autonomic nervous system; Translations: [Disorder of the autonomic nervous system, unspecified]Onset: 345561-45-6245HlvggxqCbhbp nervous system disorders (20 sources)Chronic pain; Translations: [Other chronic pain]72-19-0417Rjkmtub Other nervous system disorders (1 source)Ataxia, unspecified; Translations: [ATAXIA UNSPECIFIED]Onset: 62-24-7698HarsfrwxFcmhe nervous system disorders (3 sources)Paresthesia; Translations: [Paresthesia of skin]41-68-4426Duvlmibn Other non-traumatic joint disorders (1 source)Pain in left ankle and joints of left foot; Translations: [PAIN IN LEFT ANKLE]Onset: 55-74-1088UluivmgdDcwqq non-traumatic joint disorders (7 sources)Hip pain; Translations: [Pain in right hip]Onset: 06-13-2024 83-16-6046GunkhmqmIsxsq non-traumatic joint disorders (1 source)Pain in left hip; Translations: [Pain in left hip]Onset: 06-13-2024 EpisodicOther non-traumatic joint disorders (13 sources)Pain in right shoulder; Translations: [Right shoulder pain]Onset: 093649-36-8861RwvxbuilPbhxw screening for suspected conditions (not mental disorders or infectious disease) (18 sources)Abnormal result of other cardiovascular function study; Translations: [Other specified abnormal findings of blood chemistry]Onset: 493952-12-4733KxbbkirbEpamn skin disorders (4 sources)Nonscarring hair loss, unspecified; Translations: [NONSCARRING HAIR LOSS UNSPECIFIED]Onset: 48-20-4456YrxwgsthImijv upper respiratory infections (1 source)Acute sinusitis, unspecified; Translations: [ACUTE SINUSITIS UNSPECIFIED]Onset: 07-81-5323SmrdezbsAzonuijkzl disorders (not diabetes) (20 sources)Other chronic pancreatitis; Translations: [Chronic pancreatitis] Onset: 640723-93-7383RusdznnCgpdtlohtpus fracture (4 sources)Stress fracture of sacrum; Translations: [Pathological fracture, other site, initial encounter for fracture]05-28-0602LwxtedvrPxzdbugl codes; unclassified (1 source)Acquired absence of both cervix and uterus; Translations: [ACQUIRED ABSENCE BOTH CERVIX AND UTERUS]Onset: 78-64-4631HxfalttcVqbbmhzb codes; unclassified (1 source)Personal history of other specified conditions; Translations: [PERSONAL HISTORY OTH SPEC CONDITION]Onset: 05-33-8558IvrmvxlbMriqmnfw codes; unclassified (5 sources)Edema, unspecified; Translations: [EDEMA UNSPECIFIED]Onset: 63-86-1290JzgtjbsiNmbugzus codes; unclassified (6 sources)Postmenopausal state; Translations: [Asymptomatic menopausal state] 03-75-7679UavfoxqpMwsuwvpfxml; intervertebral disc disorders; other back problems (20 sources)Degeneration of lumbar intervertebral disc; Translations: [Degeneration of lumbar intervertebral disc]Onset: hronic Spondylosis; intervertebral disc disorders; other back problems (20 sources)Cervical radiculopathy; Translations: [Radiculopathy, cervical region]Onset: 687174-79-7664RjzzgouzWujhbklswnam (2 sources)ABN STRESSOnset: 61-47-2341Qjntvsyiumog (1 source)CHRN KIDNEY DISEASE STG 3 UNSP; Translations: [CHRN KIDNEY DISEASE STG 3 UNSP]Onset: 54-42-2876Lxsdccawrmdv (1 source)CONTACT W/AND (SUSP) EXPOS COVID-19; Translations: [CONTACT W/AND (SUSP) EXPOS COVID-19]Onset: 09-70-1888Hfcejvsgtevn (1 source)COUGH, UNSPECIFIED; Translations: [COUGH, UNSPECIFIED]Onset: 71-32-6782Qcolwvhiotyp (1 source)PERSONAL HISTORY OF COVID-19; Translations: [PERSONAL HISTORY OF COVID-19]Onset: 60-60-6079Cidiolvcayeh (1 source)PAIN RT HIPOnset: 19-14-1701Qhdllcjrqyiu (1 source)M54.6 - Pain in thoracic spineUnclassified (4 sources)R93.7 - Abnormal findings on diagnostic imaging of other parts of musculoskeletal systemViral infection (1 source)COVID-19; Translations: [COVID-19]Onset: 09-30-2022 Past or Other Problems Problem ClassificationProblemDateDocumented DateEpisodic/ChronicAbdominal hernia (16 sources)Diaphragmatic hernia without obstruction or gangrene; Translations: [Hiatal hernia]Onset: 700546-96-7302PxqkkflxAgjjtkttgmeagj ulcer (except hemorrhage) (2 sources)H/O: gastric ulcer; Translations: [Personal history of peptic ulcer disease]Onset: 902513-54-8820DcewfuejAvucklsvehdngpls hemorrhage (10 sources)Gastrointestinal hemorrhage; Translations: [Hemorrhage of anus and rectum]Onset: 073444-26-3469DuowcqirOfnhan and vomiting (2 sources)Vomiting; Translations: [Vomiting, unspecified]Onset: 07-16-2024 14-77-2192ImuyohxqOxqnl bone disease and musculoskeletal deformities (15 sources)Costal chondritis; Translations: [Chondrocostal junction syndrome [Tietze]]Onset: 434599-36-4415XbnuhtrtZwoay gastrointestinal disorders (4 sources)Constipation, unspecified; Translations: [CONSTIPATION UNSPECIFIED] Onset: 39-45-8971GjlkusaoKzmnm gastrointestinal disorders (1 source)Dysphagia; Translations: [Dysphagia, unspecified]16-39-2125Ymedkjbj Other gastrointestinal disorders (1 source)Dysphagia, unspecified; Translations: [Dysphagia, unspecified]Onset: 12-44-3207XzyvyiioIxwfu gastrointestinal disorders (1 source)HeartburnOnset: 81-00-4023OpeymuqoYkujk nervous system disorders (4 sources)Dysarthria and anarthria; Translations: [DYSARTHRIA AND ANARTHRIA] Onset: 29-39-4395Dkbfrzmh Results Test NameValueInterpretationReference RangeFacilityTrenton Psychiatric Hospital Cultureon 05-13-2025 Bacteria identified Cx Nom (U)ORGANISM: Escherichia coli (O:ESCCOL) [place] Count 75,000 Aerobic RAIZA Charge (NMIC56) SUSCEPTIBILITY ORGANISM: O:ESCCOL ANTIBIOTIC INTERPRETATION RAIZA Amikacin S <16 Amoxacillin/K Clavulanate S <8 Ampicillin S <8 Ampicillin/Sulbactam S <4 Aztreonam S <4 Cefazolin S <2 Cefepime S <2 Ceftazidime S <1 Ceftazidime/Avibactam S <4 Ceftolozane/Tazobactam S <2 Ceftriaxone S <1 Cefuroxime S <4 Ciprofloxacin S <0.25 Ertapenem S <0.5 Gentamicin S <2 Levofloxacin S <0.5 Meropenem S <1 Meropenem/Vaborbactam S <2 Nitrofurantoin S <32 Piperacillin/Tazobactam S <8 Tetracycline S <4 Tigecycline S <2 Tobramycin S <2 Trimethoprim/Sulfamethoxazole S <0.5 S = SUSCEPTIBLE I = [...] RESISTANT TO ALL B-LACTAM DRUGS. PERFORMED BY: [place] [address] PATHOLOGIST STUDENT SERVICES REPRESENTATIVE ARMINDA JUAN M.D.[facility] Physician GroupComment on above: Performed By: #### CUU #### [place] [address] USAX-ray reportOrdered By: Elian Luna on 86-85-7087Kcmwz reportFIRCLEVELAND CLINIC [facility] [address] [place] [address] XRay Report Signed Patient: Sheila Mac MR#: [id number] : 1950 Acct:[id number] Age/Sex: 74 / F ADM Date: 5 [place] [facility] [place]: Type: [facility] Attending Dr: Rickie Saucedo MD Copies [...] Luna M.D. 04/02/2025 6:13 PM Dictation Location: [place] [address] Transcribed By: [facility] 04/02/251812 Dictated By: Elian Luna DO 04/02/251811 Signed By: 04/02/25 1813 [facility] shoulder RT min 2V*on 45-67-4354BA shoulder RT min 2V*[facility] [place] [address] XRay Report Signed Patient: Sheila Mac MR#: [id number] 1859 : 1950 Acct:[id number] Age/Sex: 74 / F ADM Date: 04/02/25 [place] [facility] Room: Type: REG CLI Attending Dr: Rickie Saucedo MD Copies [...] Luna M.D. 04/02/2025 6:13 PM Dictation Location: [facility] Transcribed By: [facility] 04/02/251812 Dictated By: Elian Luna DO 04/02/251811 Signed By: 04/02/[address] [place] [address] Physician GroupX-ray reportOrdered By: Ling Fields on 05-66-7744Dqegl reportMEDINA HOSPITAL [facility] [place] [address] XRay Report Signed Patient: Sheila Mac MR#: [id number] : 1950 Acct:[id number] Age/Sex: 74 / F ADM Date: 5 Loc: [facility] Room: Type: REG CLI Attending Dr: Rickie Saucedo MD Copies [...] Fields M.D. 03/11/2025 12:01 PM Dictation Location: [place] [address] Transcribed By: [facility] 03/11/25 1201 Dictated By: Ling Fields MD 03/11/25 1158 Signed By: 03/11/25 1201 [facility] Work Phone: XR thoracic spine 2Von 59-29-0150GP thoracic spine 2V [facility] [address] [place] [address] XRay Report Signed Patient: Sheila Mac MR#: [id number] 1859 : 1950 Acct:[id number] Age/Sex: 74 / F ADM Date: 03/11/25 Loc: [facility] Room: Type: [facility] Attending Dr: Rickie Saucedo MD Copies [...] Fields M.D. 03/11/2025 12:01 PM Dictation Location: RADIO-PC-02 Transcribed By: [facility] 03/11/25 1201 Dictated By: Ling Fields MD 03/11/25 1158 Signed By: 03/11/25 1201[facility] Physician GroupXR cerv spine AP/LAT/FLX/EXTon 89-77-1307HD cerv spine AP/LAT/FLX/EXTMED[place] [address] XRay Report Signed Patient: Sheila Mac MR#: [id number] 1859 : 1950 Acct:[id number] Age/Sex: 74 / F ADM Date: 02/26/25 Loc: [place] Room: Type: [facility] Attending Dr: Vasyl Calvert MD Copies to: [...] 12:52 PM Dictation Location: [facility]IO-PC-23 Transcribed By: [facility] 02/26/25 1252 Dictated By: Elian Luna DO 02/26/25 1249 Signed By: 02/26/25 1252[facility] Physician GroupXR lumbar spine 6V w bendingon 38-16-2629CD lumbar spine 6V w bendingMEDINA HOSPITAL [place] [address] [place] [address] XRay Report Signed Patient: Sheila Mac MR#: [id number] 1859 : 1950 Acct:[id number] Age/Sex: 74 / F ADM Date: 02/26/25 Loc: [place] Room: Type: [facility] Attending Dr: Vasyl Calvert MD Copies to: [...] degenerative changes redemonstrated. SOFT TISSUES: Unremarkable BONY MINERALIZATION:Diffuse decreased bony mineralization XR/XR lumbar spine 6V w bending IMPRESSION: Similar moderate scoliosis with degenerative listhesis in greatest at the L2-3 level. Diffuse osteopenia. No acute bony findings. No hypermobility. Impression dictated by: Elian Luna M.D. 02/26/2025 2:14 PM Dictation Location: [place] [address] Transcribed By: [facility] 02/26/25 1414 Dictated By: Elian Luna DO 02/26/25 1411 Signed By: 02/26/[address] [place] [address] Physician GroupSurgical Pathologyon 07-28-2024 Surgical PathologyNormalUniversity Hospitals Geneva Medical Centerca [facility] Medical CenterComment on above:Result Comment: [facility] [address] [place] [address] Surgical Pathology Consultation Patient Name:SHEILA MAC ADOB:1950 (Age: 74)Gender:FTaken:4Reported:4Physician(s):Nidia White MD ([phone])Copy To: Rec. #:[id number]: #[id number] Final Pathologic Diagnosis 1. Duodenum biopsy first portion: Duodenal mucosa with no significant histopathologic changes. No active inflammation, celiac disease, parasites, granuloma or atypia. 2. Antrum biopsy: Gastric antral mucosa with no significant histopathologic changes. No intestinal metaplasia or dysplasia. No Helicobacter pylori organisms are seen on routine sections. Report Electronically Signed Out wak/07/31/2024Rodriguez Vargas MD Interpretation [place] [address], License number: [id number]. Clinical History Vomiting, gastroesophageal reflux, dysphagia Gross Description 1. Received in formalin labeled ASLINGER, #1: Duodenum is a single hathaway bit of soft tissue, 0.2 cmin greatest dimension. Filtered and submitted in a single cassette. (1, ns, [id number], m7) MG 2. Received in formalin labeled ASLINGER, #2: Antrum is a single hathaway bit of soft tissue, 0.3 cm in greatest dimension. Filtered and submitted in a single cassette. (1, ns, [id number], m7) [place] [facility]/07/28/2024GR Specimen(s) Received 1: Duodenum biopsy first portion 2: Antrum biopsy Fee Codes(s): 1; 82784 2; 16283IHX 1 Extremeityon 71-01-4031Y4 radiculopathy on the left, moderateNOMercy Hospital South, formerly St. Anthony's Medical CenterNOHI HealthcareNVC 5-6 Nerveson 82-31-2330B3 radiculopathy on the left, moderateBetsy Johnson Regional HospitalXR HIP LT 2-3 VIEWS W OR WO PELVISon 71-42-7116OM HIP LT 2-3 VIEWS W OR WO PELVISXR HIP LT 2-3 VIEWS W OR WO [...] by Rod Muller MD on 06/13/2024 10:24 [facility]XR SP[facility] LUMBAR 2 OR 3 VWSon 43-52-0035BQ SPINE LUMBAR 2 OR 3 VWSXR SPINE LUMBAR 2 OR 3 VWS CLINICAL [...] by Rickie Gonzales MD on 06/13/2024 10:20 [facility] HospitalMR HIP RIGHT WO IV CONTRASTon 57-86-7529LB HIP RIGHT WO IV CONTRASTEXAM: MR HIP RIGHT WO IV CONTRAST HISTORY: [...] with a few small areas of full-thickness cartilageloss and minimal associated bone marrow edema. Small [...] recent trauma. Moderate osteoarthritis. ELECTRONICALLY SIGNED BY: Vijay Maxwell AvailableComment on above:Order Comment: MRI RT hip w/o. NOMSXR Hip - right 3 Viewson 06-05-2024 Imaging Result: June 05, 2024 x-rays AP pelvis and lateral of the right hip demonstrate an intact hip joint space. There are no fractures detected. The bone has an osteopenic appearance. The joint spaces are symmetric. There is no obvious effusion or soft tissue swelling. Impression: No acute findings on x-rays of the right hip Hemal Sheth D.O.[facility] Johnson [facility] HospitalRadiology Study observation (narrative)[facility] Health CenterColonoscopyOrdered By: Kera George on 03-26-2024 [facility] HospitalUS AYESHA DOP LEG LTon 80-15-8043DT AYESHA DOP LEG LT EXAMINATION: US AYESHA [...] Electronically authenticated by: DANIEL PINEDA Date: 2023-01-15 08:25[facility] Cancer CenterXR ANKLE LT MIN 3 Von 96-63-9377TS ANKLE LT MIN 3 VEXAM: XR FOOT LT MIN 3 VIEWS, XR [...] Electronically authenticated by: GONZALEZ PATEL Date: 2023-01-15 07:28[facility], Cancer CenterVITAMIN B1 (THIAMINE)on 57-90-0245Kge. B1, Whole Houjl521.1 nmol/KKgaooy79.5-200.0[facility] Health CenterComment on above:Performed By: #### CBC #### [facility] [address] [place] [address] Dr. Ekta Vaughan 59-51-6618Hfnnbvwayca peptide B (Bld) [Mass/Vol]980.0 pg/mL Critically high<=900.0The [facility] HospitalComment on above:Performed By: #### CVDTBH #### [facility] [address] [place] [address] Dr. Ekta Agarwal AUTO DIFFon 14-02-5662SWNB #0.1 103/ulNormal0.0-0.1[facility] Health CenterComment on above:Performed By: #### CMP #### [facility] [address] [place] [address] Dr. Ekta Fatimaphils/100 WBC (Bld)1.0 %Normal0.2-2.0[facility] Comment on above:Performed By: #### CMP #### [facility] [address] [place] [address] Dr. Ekta Anthony #0.4 103/ulNormal0.0-0.7The [facility] HospitalComment on above: Performed By: #### CMP #### [facility] [address] [place] [address] Dr. Ekta Abebeosinophils/100 WBC (Bld)3.7 %Normal0.9-7.0[facility] Comment on above:Performed By: #### CMP #### [facility] [address] [place] [address] Dr. Ekta Abeberythrocyte distribution width (RBC) [Ratio]13.2 %Arqbbj67.0-15.0 [facility] Hospitalment on above:Performed By: #### CMP #### [facility] [address] [place] [address] Dr. Ekta FunkHematocrit (Bld) [Volume fraction]35.1 %Critically low36.0-48.0 The [facility] HospitalComment on above:Performed By: #### CMP #### [facility] [address] [place] [address] Dr. Ekta FunkHemoglobin (Bld) [Mass/Vol]11.3 g/dLCritically low12.0-16.0[facility] Hospitalment on above:Performed By: #### CMP #### [facility] [address] [place] [address] Dr. Ekta Olivares #0.04 10e3/ulCritically high0.00-0.03The [facility] Comment on above:Performed By: #### CMP #### [facility] [address] [place] [address] Dr. Ekta Olivares %0.4 %Normal0.0-0.5The [facility] on above: Performed By: #### CMP #### [facility] [address] [place] [address] Dr. Ekta LundbergH #2.0 103/ulNormal1.2-3.8The [facility] on above:Performed By: #### CMP #### [facility] [address] [place] [address] Dr. Ekta Nettlesmphocytes/100 WBC (Bld)20.8 %Ijvwuj70.5-60.0[facility] Hospitalment on above:Performed By: #### CMP #### [facility] [address] [place] [address] Dr. Ekta MaloneUAL DIFF REQNONormalThe [facility] HospitalComment on above: Performed By: #### CMP #### [facility] [address] [place] [address] Dr. Ekta Oconnor (RBC) [Entitic mass]32.3 bgRcrkql48.7-34.0The [facility] HospitalComment on above:Performed By: #### CMP #### [facility] [address] [place] [address] Dr. Ekta Oconnor (RBC) [Mass/Vol]32.2 g/sJKgcvfl32.9-35.2The [facility] HospitalComment on above:Performed By: #### CMP #### [facility] [address] [place] [address] Dr. Ekta Oconnor (RBC) [Entitic vol]100.3 fLCritically high81.0-99.0The [facility] HospitalComment on above:Performed By: #### CMP #### [facility] [address] [place] [address] Dr. Ekta Rivas #0.8 103/ulNormal0.3-0.8The [facility] HospitalComment on above:Performed By: #### CMP #### [facility] [address] [place] [address] Dr. Ekta Perkinsocytes/100 WBC (Bld)7.9 %Normal1.7-12.0The [facility] Comment on above:Performed By: #### CMP #### [facility] [address] [place] [address] Dr. Ekta Salazar #6.4 103/ulNormal1.4-6.5The [facility] HospitalComment on above:Performed By: #### CMP #### [facility] [address] [place] [address] Dr. Ekta Sheldonutrophils/100 WBC (Bld)66.2 %Caohra02.0-75.0The [facility] HospitalComment on above:Performed By: #### CMP #### [facility] [address] [place] [address] Dr. Ekta Salomonlet mean volume (Bld) [Entitic vol]9.6 fLNormal9.5-13.5The [facility] HospitalComment on above:Performed By: #### CMP #### [facility] [address] [place] [address] Dr. Ekta FunkPLT255 103/eeMwpglo147-417Jec [facility] on above: Performed By: #### CMP #### [facility] [address] [place] [address] Dr. Ekta FunkRBC3.50 106/ulCritically low4.20-5.40The [facility] on above:Performed By: #### CMP #### [facility] [address] [place] [address] Dr. Ekta FunkWBC9.7 103/ulNormal4.0-11.0The [facility] on above: Performed By: #### CMP #### [facility] [address] [place] [address] Dr. Ekta Castaneda 61-43-2353RET [Mass/Vol]mg/LNormal<=1.0The [facility] on above:Performed By: #### CBC #### [facility] [address] [place] [address] Dr. Ekta Correa THYROXINE INDEX T7on 85-22-4238RTK8.43Kjepdh6.30-4.50The [facility] on above:Performed By: #### CBC #### [facility] [address] [place] [address] Dr. Ekta FunkT3U32.0 %Nttyhn23.0-39.0The [facility] on above: Performed By: #### CBC #### [facility] [address] [place] [address] Dr. Ekta FunkT4 [Mass/Vol]8.20 ug/dLNormal4.80-13.90The [facility] on above:Performed By: #### CBC #### [facility] [address] [place] [address] Dr. Ekta Shannon 47-90-7744Lecc [Mass/Vol]61.0 ug/rDHqhwoc52.0-170.0The [facility] HospitalComment on above:Performed By: #### B12FOL, VITAD, IRON #### [facility] [address] [place] [address] [address] Ekta Pal 14(COMP METB)on 30-47-3564Snaxmug [Mass/Vol]2.9 g/dL Critically low3.4-5.0The [facility] HospitalComment on above:Performed By: #### CVDTBH #### [facility] [address] [place] [address] Dr. Ekta FunkAlbumin/Globulin [Mass ratio]0.6 {ratio}NormalThe [facility] HospitalComment on above:Performed By: #### CVDTBH #### [facility] [address] [place] [address] Dr. Ekta Cowart [Catalytic activity/Vol]101 U/JJxzwci44-688Mdd [facility] HospitalComment on above:Performed By: #### CVDTBH #### [facility] [address] [place] [address] Dr. Ekta Mccormick [Catalytic activity/Vol]16 U/ZLyefjt46-29Way [facility] HospitalComment on above:Performed By: #### CVDTBH #### [facility] [address] [place] [address] Dr. Ekta Harrison gap [Moles/Vol]14.6 mmol/LNormalThe [facility] Comment on above:Performed By: #### CVDTBH #### [facility] [address] [place] [address] Dr. Ekta FunkAST [Catalytic activity/Vol]15 U/CKnjyzg12-99Tuk [facility] HospitalComment on above:Performed By: #### CVDTBH #### [facility] [address] [place] [address] Dr. Ekta FunkBilirubin [Mass/Vol]0.4 mg/dLNormal0.2-1.0The [facility] Comment on above:Performed By: #### CVDTBH #### [facility] [address] [place] [address] Dr. Ekta FunkCalcium [Mass/Vol]9.2 mg/dLNormal8.5-10.1The [facility] Comment on above:Performed By: #### CVDTBH #### [facility] [address] [place] [address] Dr. Ekta FunkChloride [Moles/Vol]107 mmol/JHhblow75-740Iqb [facility] Comment on above:Performed By: #### CVDTBH #### [facility] [address] [place] [address] Dr. Ekta FunkCO2 [Moles/Vol]24.4 mmol/IYjaifu26.0-32.0The [facility] Comment on above:Performed By: #### CVDTBH #### [facility] [address] [place] [address] Dr. Ekta FunkCreatinine [Mass/Vol]2.02 mg/dLCritically high0.55-1.02[facility] CenterComment on above:Performed By: #### CVDTBH #### [facility] [address] [place] [address] Dr. Dash ChangEGFR-AF ICRNRXQC51 mL/min/1.60u0Dxmgigtrao low>=60The [facility] HospitalComment on above:Performed By: #### CVDTBH #### [facility] [address] [place] [address] Dr. Ekta AbebeGFR-NON AF WYEKAHEM17 mL/min/1.02g2Rwecsuvjcv low>=60The [facility] HospitalComment on above:Performed By: #### CVDTBH #### [facility] [address] [place] [address] Dr. Ekta FunkGlobulin (S) [Mass/Vol]4.5 g/dLNormalThe [facility] HospitalComment on above:Performed By: #### CVDTBH #### [facility] [address] [place] [address] Dr. Ekta FunkGlucose [Mass/Vol]103 mg/kUQcidkh52-829Hwm [facility] Comment on above:Performed By: #### CVDTBH #### [facility] [address] [place] [address] [address] Ekta FunkPotassium [Moles/Vol]5.0 mmol/LNormal3.5-5.1The [facility] Comment on above:Performed By: #### CVDTBH #### [facility] [address] [place] [address] Dr. Ekta FunkProtein [Mass/Vol]7.4 g/dLNormal6.4-8.2The [facility] Comment on above:Performed By: #### CVDTBH #### [facility] [address] [place] [address] Dr. Ekta FunkSodium [Moles/Vol]141 mmol/YMzgjqf589-800Git [facility] Comment on above:Performed By: #### CVDTBH #### [facility] [address] [place] [address] Dr. Ekta FunkUrea nitrogen [Mass/Vol]23.0 mg/dLCritically high7.0-18.0The [facility] HospitalComment on above:Performed By: #### CVDTBH #### [facility] [address] [place] [address] Dr. Ekta [place] nitrogen/Creatinine [Mass ratio]11.4 mg/mgNormalThe [facility] HospitalComment on above:Performed By: #### CVDTBH #### [facility] [address] [place] [address] Dr. Ekta Carmona 59-00-2012RGY9.793 uIU/mLNormal0.358-3.740The [facility] HospitalComment on above:Performed By: #### CVDTBH #### [facility] [address] [place] [address] Dr. Ekta Lopez B12 AND FOLATEon 30-51-6201Nebygadss (Vitamin B12) [Mass/Vol] 175.0 pg/mLCritically vdt752.0-986.0The [facility] HospitalComment on above: Performed By: #### B12FOL, VITAD, IRON #### [facility] [address] [place] [address] Dr. Ekta FunkFOLATE10.30 ng/mLNormal8.60-58.90[facility] CenterComment on above:Performed By: #### B12FOL, VITAD, IRON #### [facility] [address] [place] [address] Dr. Ekta FunkVITAMIN D 25 OHon 46-35-5834VLD D 25-OH24.0 ng/mLNormalOhiohealth Nelsonville Health CenterComment on above:Performed By: #### B12FOL, VITAD, IRON #### [facility] [address] [place] [address] Dr. Ekta Lopez D [place] [facility] Mi[facility]burgComment on above: Result Comment: <20 ng/mL Vit D deficient 20 - <30 ng/mL Vit D insufficient 30 - 100 ng/mL Vit D sufficient >100 ng/mL Potential ToxicityPerformed By: #### B12FOL, VITAD, IRON #### [facility] [address] [place] [address] Dr. Ekta Hope Visiton 48-05-3124Nmblmj-up [id number] Sheila Mac 1950 F Date Provider Department Center 12/15/2022 3848-RODRIGUEZ RIVERA [facility] No family history on file Level of Service:14340 [place] OFFICE/OUTPATIENT ESTABLISHED MOD MDM 30-39 MIN Reason for Visit and Comments: Follow-up [685916] - Is here f/u stress test pt states she had Bruises all over both legs symptoms stated a week ago also stated legs are swollen and burningNormalUniversity of Medical Center [facility] STRESS/REST MULTIon 82-88-7778IT STRESS/REST MULTIPatient: SHEILA MAC Exam Date: 12/05/2022 : 1950 Gender:F Ordering : DR KRZYSZTOF THOMPSON . Admission #: [id number] Family : Order #: [id number] CLICK HERE TO VIEW EXAM RADIOLOGY REPORT [...] by: Daniel Pineda M.D. on 12/06/2022 at 07:26[facility] Cancer CenterECHOCARDIO M/2D COMPLETEon 51-79-0344BEAYNSFZMM M/2D COMPLETEPatient: SHEILA MAC Exam Date: 11/27/2022 : 1950 Gender:F Ordering : DR KRZYSZTOF THOMPSON . Admission #: [id number] Family : Order #: [id number] CLICK HERE TO VIEW EXAM ECHOCARDIOGRAM REPORT [...] by: Bong Gaspar M.D. on 11/27/2022 at 14:39NormalThBlanchard Valley Health System [facility] HospitalCB AUTO DIFFon 03-70-4271SYOB #0.0 103/ulNormal0.0-0.1[facility] CenterComment on above:Performed By: #### INSULIN #### [facility] [address] [place] [address] Dr. Ekta Thorntonsophils/100 WBC (Bld)0.6 %Normal0.2-2.0[facility] Comment on above:Performed By: #### INSULIN #### [facility] [address] [place] [address] Dr. Ekta Anthony #0.3 103/ulNormal0.0-0.7The [facility] HospitalComment on above: Performed By: #### INSULIN #### [facility] [address] [place] [address] Dr. Ekta Abebeosinophils/100 WBC (Bld)4.8 %Normal0.9-7.0The [facility] Comment on above:Performed By: #### INSULIN #### [facility] [address] [place] [address] Dr. Ekta Abeberythrocyte distribution width (RBC) [Ratio]13.3 %Amkksl55.0-15.0 The [facility] HospitalComment on above:Performed By: #### INSULIN #### [facility] [address] [address] [address] Ekta FunkHematocrit (Bld) [Volume fraction]29.1 %Critically low36.0-48.0 The [facility] HospitalComment on above:Performed By: #### INSULIN #### [facility] [facility] [address] [address] [address] Ekta FunkHemoglobin (Bld) [Mass/Vol]9.5 g/dLCritically low12.0-16.0The [facility] HospitalComment on above:Performed By: #### INSULIN #### [facility] [address] [address] [address] Ekta FunkIG #0.07 10e3/ulCritically high0.00-0.03The [facility] Comment on above:Performed By: #### INSULIN #### [facility] [address] [address] [address] Ekta FunkIG %1.0 %Critically high0.0-0.5The [facility] HospitalComment on above:Performed By: #### INSULIN #### [facility] [address] [address] [address] Ekta Putnam #1.2 103/ulNormal1.2-3.8The [facility] HospitalComment on above:Performed By: #### INSULIN #### [facility] [address] [address] [address] Ekta Nettlesmphocytes/100 WBC (Bld)17.2 %Critically low20.5-60.0[facility] CenterComment on above:Performed By: #### INSULIN #### [facility] [address] [address] [address] Ekta FunkMANUAL DIFF REQNONormalThe [facility] HospitalComment on above: Performed By: #### INSULIN #### [facility] [address] [address] [address] Ekta Frye (RBC) [Entitic mass]31.7 gtJvmapp67.7-34.0The [facility] HospitalComment on above:Performed By: #### INSULIN #### [facility] [address] [address] [address] Ekta Oconnor (RBC) [Mass/Vol]32.6 g/fOVoxwwp33.9-35.2The [facility] HospitalComment on above:Performed By: #### INSULIN #### [facility] [address] [address] [address] Ekta OconnorV (RBC) [Entitic vol]97.0 nBYdboos52.0-99.0The [facility] HospitalComment on above:Performed By: #### INSULIN #### [facility] [address] [place] [address] Dr. Ekta Rivas #0.8 103/ulNormal0.3-0.8The [facility] HospitalComment on above:Performed By: #### INSULIN #### [facility] [address] [place] [address] Dr. Ekta Perkinsocytes/100 WBC (Bld)11.1 %Normal1.7-12.0The [facility] Comment on above:Performed By: #### INSULIN #### [facility] [address] [place] [address] Dr. Ekta Salazar #4.5 103/ulNormal1.4-6.5The [facility] HospitalComment on above:Performed By: #### INSULIN #### [facility] [address] [address] [address] Ekta Sheldonutrophils/100 WBC (Bld)65.3 %Mfreus15.0-75.0The [facility] HospitalComment on above:Performed By: #### INSULIN #### [facility] [address] [address] [address] Ekta Salomonlet mean volume (Bld) [Entitic vol]9.4 fLCritically low 9.5-13.5The [facility] HospitalComment on above:Performed By: #### INSULIN #### [facility] [address] [place] [address] Dr. Ekta FunkPLT263 103/syLlavov494-917Olf [facility] HospitalComment on above: Performed By: #### INSULIN #### [facility] [address] [address] [address] Ekta FunkRBC3.00 106/ulCritically low4.20-5.40The [facility] HospitalComment on above:Performed By: #### INSULIN #### [facility] [address] [place] [address] Dr. Ekta FunkWBC6.9 103/ulNormal4.0-11.0The [facility] HospitalComment on above: Performed By: #### INSULIN #### [facility] [address] [place] [address] Dr. Ekta Pal 14(COMP METB)on [id number] [Mass/Vol]2.2 g/dL Critically low3.4-5.0The [facility] HospitalComment on above:Performed By: #### CMP #### [facility] [address] [place] [address] Dr. Ekta FunkAlbumin/Globulin [Mass ratio]0.6 {ratio}NormalThe [facility] HospitalComment on above:Performed By: #### CMP #### [facility] [address] [place] [address] Dr. Ekta Cowart [Catalytic activity/Vol]82 U/BSgazro62-643Xvm [facility] HospitalComment on above:Performed By: #### CMP #### [facility] [address] [place] [address] Dr. Ekta Mccormick [Catalytic activity/Vol]13 U/LCritically nfc97-61Mga [facility] HospitalComment on above:Performed By: #### CMP #### [facility] [address] [place] [address] Dr. Ekta Harrison gap [Moles/Vol]14.0 mmol/LNormalThe [facility] on above:Performed By: #### CMP #### [facility] [address] [place] [address] Dr. Ekta Gonzalez [Catalytic activity/Vol]18 U/DDwahgy07-04Mza [facility] HospitalComment on above:Performed By: #### CMP #### [facility] [address] [address] [address] Ekta FunkBilirubin [Mass/Vol]0.4 mg/dLNormal0.2-1.0The [facility] Comment on above:Performed By: #### CMP #### [facility] [address] [address] [address] Ekta FunkCalcium [Mass/Vol]8.6 mg/dLNormal8.5-10.1[facility] Comment on above:Performed By: #### CMP #### [facility] [address] [place] [address] Dr. Ekta FunkChloride [Moles/Vol]108 mmol/LCritically ywjg33-804Rzq [facility] HospitalComment on above:Performed By: #### CMP #### [facility] [address] [place] [address] Dr. Ekta FunkCO2 [Moles/Vol]19.6 mmol/LCritically low21.0-32.0The [facility] HospitalComment on above:Performed By: #### CMP #### [facility] [address] [place] [address] Dr. Ekta FunkCreatinine [Mass/Vol]1.70 mg/dLCritically high0.55-1.02The [facility] HospitalComment on above:Performed By: #### CMP #### [facility] [address] [place] [address] Dr. Ekta AbebeGFR-AF VKESQGCY13 mL/min/1.50w7Mxiongesgg low>=60The [facility] HospitalComment on above:Performed By: #### CMP #### [facility] [address] [place] [address] Dr. Ekta AbebeGFR-NON AF OVXHOBZA39 mL/min/1.39g5Mwyxlgugek low>=60The [facility] HospitalComment on above:Performed By: #### CMP #### [facility] [address] [place] [address] Dr. Ekta FunkGlobulin (S) [Mass/Vol]3.6 g/dLNormMercy Health Clermont HospitalComment on above:Performed By: #### CMP #### [facility] [address] [place] [address] Dr. Ekta FunkGlucose [Mass/Vol]103 mg/zMTynxca79-248Goi [facility] Comment on above:Performed By: #### CMP #### [facility] [address] [place] [address] Dr. Ekta FunkPotassium [Moles/Vol]4.6 mmol/LNormal3.5-5.1The [facility] Comment on above:Performed By: #### CMP #### [facility] [address] [place] [address] Dr. Ekta FunkProtein [Mass/Vol]5.8 g/dLCritically low6.4-8.2The [facility] HospitalComment on above:Performed By: #### CMP #### [facility] [address] [place] [address] Dr. Ekta Nolandium [Moles/Vol]137 mmol/IYwborp271-454Spq [facility] Comment on above:Performed By: #### CMP #### [facility] [address] [place] [address] Dr. Ekta FunkUrea nitrogen [Mass/Vol]26.0 mg/dLCritically high7.0-18.0The [facility] HospitalComment on above:Performed By: #### CMP #### [facility] [address] [place] [address] Dr. Ekta FunkUrea nitrogen/Creatinine [Mass ratio]15.3 mg/mgNormalThBlanchard [facility] Health System [facility] HospitalComment on above:Performed By: #### CMP #### [facility] [address] [place] [address] Dr. Ekta Agarwal AUTO DIFFon [id number] #0.1 103/ulNormal0.0-0.1The [facility] HospitalComment on above:Performed By: #### CBC #### [facility] [address] [place] [address] Dr. Yilan ChangBasophils/100 WBC (Bld)0.7 %Normal0.2-2.0[facility] Comment on above:Performed By: #### CBC #### [facility] [address] [place] [address] Dr. Ekta Anthony #0.3 103/ulNormal0.0-0.7The [facility] HospitalComment on above: Performed By: #### CBC #### [facility] [address] [place] [address] Dr. Ekta Abebeosinophils/100 WBC (Bld)3.4 %Normal0.9-7.0[facility] Comment on above:Performed By: #### CBC #### [facility] [address] [place] [address] Dr. Ekta Abeberythrocyte distribution width (RBC) [Ratio]13.6 %Giksbl96.0-15.0 [facility] CenterComment on above:Performed By: #### CBC #### [facility] [address] [place] [address] Dr. Ekta FunkHematocrit (Bld) [Volume fraction]32.1 %Critically low36.0-48.0 [facility] CenterComment on above:Performed By: #### CBC #### [facility] [address] [place] [address] Dr. Ekta FunkHemoglobin (Bld) [Mass/Vol]10.3 g/dLCritically low12.0-16.0The [facility] HospitalComment on above:Performed By: #### CBC #### [facility] [address] [place] [address] Dr. Ekta Olivares #0.08 10e3/ulCritically high0.00-0.03[facility] Comment on above:Performed By: #### CBC #### [facility] [address] [place] [address] Dr. Ekta Olivares %0.9 %Critically high0.0-0.5The [facility] HospitalComment on above:Performed By: #### CBC #### [facility] [address] [address] [address] Ekta Putnam #0.9 103/ulCritically low1.2-3.8The [facility] Comment on above:Performed By: #### CBC #### [facility] [address] [place] [address] Dr. Ekta Nettlesmphocytes/100 WBC (Bld)10.7 %Critically low20.5-60.0[facility] CenterComment on above:Performed By: #### CBC #### [facility] [address] [place] [address] Dr. Ekta Beckham DIFF REQNONormalThe [facility] HospitalComment on above: Performed By: #### CBC #### [facility] [address] [place] [address] Dr. Ekta Oconnor (RBC) [Entitic mass]32.2 wyJkxyvd37.7-34.0The [facility] HospitalComment on above:Performed By: #### CBC #### [facility] [address] [place] [address] Dr. Ekta Oconnor (RBC) [Mass/Vol]32.1 g/qTWzfcrq82.9-35.2The [facility] HospitalComment on above:Performed By: #### CBC #### [facility] [address] [place] [address] Dr. Ekta Estevez (RBC) [Entitic vol]100.3 fLCritically high81.0-99.0The [facility] HospitalComment on above:Performed By: #### CBC #### [facility] [address] [place] [address] Dr. Ekta Rivas #0.9 103/ulCritically high0.3-0.8ThBlanch[facility] Comment on above:Performed By: #### CBC #### [facility] [address] [place] [address] Dr. Ekta Perkinsocytes/100 WBC (Bld)9.9 %Normal1.7-12.0[facility] Comment on above:Performed By: #### CBC #### [facility] [address] [place] [address] Dr. Ekta Salazar #6.4 103/ulNormal1.4-6.5The [facility] HospitalComment on above:Performed By: #### CBC #### [facility] [address] [place] [address] Dr. Ekta Sheldonutrophils/100 WBC (Bld)74.4 %Xhnpov52.0-75.0The [facility] HospitalComment on above:Performed By: #### CBC #### [facility] [address] [place] [address] Dr. Ekta Salomonlet mean volume (Bld) [Entitic vol]9.5 fLNormal9.5-13.5The [facility] HospitalComment on above:Performed By: #### CBC #### [facility] [address] [place] [address] Dr. Ekta FunkPLT267 103/egXsryeu701-089Evp [facility] HospitalComment on above: Performed By: #### CBC #### [facility] [address] [place] [address] Dr. Ekta FunkRBC3.20 106/ulCritically low4.20-5.40The [facility] HospitalComment on above:Performed By: #### CBC #### [facility] [address] [place] [address] Dr. Ekta FunkWBC8.6 103/ulNormal4.0-11.0The [facility] HospitalComment on above: Performed By: #### CBC #### [facility] [address] [place] [address] Dr. Ekta ThorntonSO #0.1 103/ulNormal0.0-0.1The [facility] HospitalComment on above:Performed By: #### CMP #### [facility] [address] [place] [address] Dr. Ekta Thorntonsophils/100 WBC (Bld)0.7 %Normal0.2-2.0The [facility] Comment on above:Performed By: #### CMP #### [facility] [address] [address] [address] Ekta Anthony #0.3 103/ulNormal0.0-0.7The [facility] HospitalComment on above: Performed By: #### CMP #### [facility] [address] [place] [address] Dr. Ekta Abebeosinophils/100 WBC (Bld)3.9 %Normal0.9-7.0The [facility] Comment on above:Performed By: #### CMP #### [facility] [address] [place] [address] Dr. Ekta Abeberythrocyte distribution width (RBC) [Ratio]13.2 %Unlvpr76.0-15.0 [facility] CenterComment on above:Performed By: #### CMP #### [facility] [address] [place] [address] Dr. Ekta FunkHematocrit (Bld) [Volume fraction]28.0 %Critically low36.0-48.0 The [facility] HospitalComment on above:Performed By: #### CMP #### [facility] [address] [place] [address] Dr. Ekta FunkHemoglobin (Bld) [Mass/Vol]9.3 g/dLCritically low12.0-16.0The [facility] HospitalComment on above:Performed By: #### CMP #### [facility] [address] [place] [address] Dr. Ekta Olivares #0.08 10e3/ulCritically high0.00-0.03[facility] Comment on above:Performed By: #### CMP #### [facility] [address] [place] [address] Dr. Ekta Olivares %1.1 %Critically high0.0-0.5The [facility] HospitalComment on above:Performed By: #### CMP #### [facility] [address] [place] [address] Dr. Ekta LundbergH #0.9 103/ulCritically low1.2-3.8The [facility] Comment on above:Performed By: #### CMP #### [facility] [address] [place] [address] Dr. Ekta Nettlesmphocytes/100 WBC (Bld)12.1 %Critically low20.5-60.0The [facility] Campusment on above:Performed By: #### CMP #### [facility] [address] [place] [address] Dr. Ekta Beckham DIFF REQNONormalThe [facility] HospitalComment on above: Performed By: #### CMP #### [facility] [address] [place] [address] Dr. Ekta Oconnor (RBC) [Entitic mass]32.0 nrCxnidd44.7-34.0The [facility] HospitalComment on above:Performed By: #### CMP #### [facility] [address] [place] [address] Dr. Ekta Oconnor (RBC) [Mass/Vol]33.2 g/hFXdrjti03.9-35.2The [facility] HospitalComment on above:Performed By: #### CMP #### [facility] [address] [place] [address] Dr. Ekta Oconnor (RBC) [Entitic vol]96.2 xEEgtjur73.0-99.0The [facility] HospitalComment on above:Performed By: #### CMP #### [facility] [address] [place] [address] Dr. Ekta Rivas #0.7 103/ulNormal0.3-0.8The [facility] Campusment on above:Performed By: #### CMP #### [facility] [address] [place] [address] Dr. Ekta Perkinsocytes/100 WBC (Bld)9.8 %Normal1.7-12.0The [facility] Comment on above:Performed By: #### CMP #### [facility] [address] [place] [address] Dr. Ekta Salazar #5.2 103/ulNormal1.4-6.5The [facility] HospitalComment on above:Performed By: #### CMP #### [facility] [address] [address] [address] Ekta FunkNeutrophils/100 WBC (Bld)72.4 %Aiasqp26.0-75.0The [facility] HospitalComfresenius [facility] on above:Performed By: #### CMP #### [facility] [address] [address] [address] Ekta FunkPlatelet mean volume (Bld) [Entitic vol]9.4 fLCritically low 9.5-13.5The [facility] HospitalComment on above:Performed By: #### CMP #### [facility] [address] [place] [address] Dr. Ekta FunkPLT250 103/blNlyslm060-653Csx [facility] on above: Performed By: #### CMP #### [facility] [address] [place] [address] Dr. Ekta FunkRBC2.91 106/ulCritically low4.20-5.40The [facility] on above:Performed By: #### CMP #### [facility] [address] [place] [address] Dr. Ekta FunkWBC7.2 103/ulNormal4.0-11.0The [facility] on above: Performed By: #### CMP #### [facility] [address] [place] [address] Dr. Ekta FunkPROF 14(COMP METB)on [id number] [Mass/Vol]2.1 g/dL Critically low3.4-5.0The [facility] HospitalComfresenius [facility] on above:Performed By: #### CMP #### [facility] [address] [place] [address] Dr. Ekta FunkAlbumin/Globulin [Mass ratio]0.6 {ratio}NormalThe [facility] on above:Performed By: #### CMP #### [facility] [address] [place] [address] Dr. Ekta AlcantaraP [Catalytic activity/Vol]68 U/JTuzoue01-529Qfe [facility] HospitalComment on above:Performed By: #### CMP #### [facility] [address] [address] [address] Ekta AlcantaraT [Catalytic activity/Vol]14 U/DUypffj57-68Ogf [facility] HospitalComment on above:Performed By: #### CMP #### [facility] [address] [address] [address] Ekta Mcleodon gap [Moles/Vol]12.9 mmol/LNormalThe [facility] Comment on above:Performed By: #### CMP #### [facility] [address] [address] [address] Ekta FunkAST [Catalytic activity/Vol]14 U/LCritically utn99-77Bgd [facility] HospitalComment on above:Performed By: #### CMP #### [facility] [address] [address] [address] Ekta FunkBilirubin [Mass/Vol]0.3 mg/dLNormal0.2-1.0The [facility] Comment on above:Performed By: #### CMP #### [facility] [address] [address] [address] Ekta FunkCalcium [Mass/Vol]8.3 mg/dLCritically low8.5-10.1The [facility] HospitalComment on above:Performed By: #### CMP #### [facility] [address] [address] [address] Ekta FunkChloride [Moles/Vol]109 mmol/LCritically mdjv92-306Gsf [facility] HospitalComment on above:Performed By: #### CMP #### [facility] [address] [address] [address] Ekta FunkCO2 [Moles/Vol]19.3 mmol/LCritically low21.0-32.0The [facility] HospitalComment on above:Performed By: #### CMP #### [facility] [address] [address] [address] Ekta FunkCreatinine [Mass/Vol]1.54 mg/dLCritically high0.55-1.02The [facility] HospitalComment on above:Performed By: #### CMP #### [facility] [address] [address] [address] Ekta AbebeGFR-AF BBMOMYJY26 mL/min/1.60p4Gveuuwopzp low>=60The [facility] HospitalComfresenius [facility] on above:Performed By: #### CMP #### [facility] [address] [address] [address] Ekta AbebeGFR-NON AF DHRBXVGN82 mL/min/1.47p0Jshflykgsx low>=60The [facility] HospitalComment on above:Performed By: #### CMP #### [facility] [address] [address] [address] Ekta FunkGlobulin (S) [Mass/Vol]3.7 g/dLNormalThBlanchard [facility] HospitalComment on above:Performed By: #### CMP #### [facility] [address] [address] [address] Ekta FunkGlucose [Mass/Vol]117 mg/dLCritically vcnn88-158UgrHenry County Hospitalment on above:Performed By: #### CMP #### [facility] [address] [address] [address] Ekta FunkPotassium [Moles/Vol]4.2 mmol/LNormal3.5-5.1The [facility] Comment on above:Performed By: #### CMP #### [facility] [address] [address] [address] Ekta FunkProtein [Mass/Vol]5.8 g/dLCritically low6.4-8.2[facility] on above:Performed By: #### CMP #### [facility] [address] [address] [address] Ekta FunkSodium [Moles/Vol]137 mmol/ZPjamoj538-493Cfq [facility] Comment on above:Performed By: #### CMP #### [facility] [address] [address] [address] Ekta FunkUrea nitrogen [Mass/Vol]27.0 mg/dLCritically high7.0-18.0The [facility] HospitalComment on above:Performed By: #### CMP #### [facility] [address] [place] [address] Dr. Ekta FunkUrea nitrogen/Creatinine [Mass ratio]17.5 mg/mgNormalThBlanchard [facility] Health System [facility] HospitalComment on above:Performed By: #### CMP #### [facility] [address] [place] [address] Dr. Ekta FunkAMMONIAon [id number] (P) [Moles/Vol]13 umol/HWyshla82-80 [facility] CenterComment on above:Performed By: #### CVDTBH #### [facility] [address] [place] [address] Dr. Ekta CaalC AUTO DIFFon [id number] #0.0 103/ulNormal0.0-0.1[facility] CenterComment on above:Performed By: #### CMP #### [facility] [address] [place] [address] Dr. Ekta FunkBasophils/100 WBC (Bld)0.4 %Normal0.2-2.0[facility] Comment on above:Performed By: #### CMP #### [facility] [address] [place] [address] Dr. Ekta Anthony #0.4 103/ulNormal0.0-0.7The [facility] HospitalComfresen[facility] on above: Performed By: #### CMP #### [facility] [address] [place] [address] Dr. Ekta Abebeosinophils/100 WBC (Bld)3.8 %Normal0.9-7.0[facility] Comment on above:Performed By: #### CMP #### [facility] [address] [place] [address] Dr. Ekta Abeberythrocyte distribution width (RBC) [Ratio]13.2 %Ikluhw53.0-15.0 [facility] CenterComment on above:Performed By: #### CMP #### [facility] [address] [place] [address] Dr. Ekta FunkHematocrit (Bld) [Volume fraction]34.0 %Critically low36.0-48.0 The [facility] HospitalComment on above:Performed By: #### CMP #### [facility] [address] [place] [address] Dr. Ekta FunkHemoglobin (Bld) [Mass/Vol]11.5 g/dLCritically low12.0-16.0The [facility] HospitalComment on above:Performed By: #### CMP #### [facility] [address] [address] [address] Ekta FunkIG #0.11 10e3/ulCritically high0.00-0.03The [facility] Comment on above:Performed By: #### CMP #### [facility] [address] [place] [address] Dr. Ekta FunkIG %1.2 %Critically high0.0-0.5The [facility] HospitalComment on above:Performed By: #### CMP #### [facility] [address] [place] [address] Dr. Ekta Putnam #1.4 103/ulNormal1.2-3.8The [facility] HospitalComment on above:Performed By: #### CMP #### [facility] [address] [place] [address] Dr. Ekta Nettlesmphocytes/100 WBC (Bld)14.9 %Critically low20.5-60.0The [facility] HospitalComment on above:Performed By: #### CMP #### [facility] [address] [place] [address] Dr. Ekta FunkMANUAL DIFF REQNONormalThe [facility] HospitalComment on above: Performed By: #### CMP #### [facility] [address] [place] [address] Dr. Ekta Frye (RBC) [Entitic mass]32.5 jiMuteyw77.7-34.0The [facility] HospitalComment on above:Performed By: #### CMP #### [facility] [address] [place] [address] Dr. Ekta OconnorHC (RBC) [Mass/Vol]33.8 g/wHDihdul85.9-35.2The [facility] HospitalComment on above:Performed By: #### CMP #### [facility] [address] [place] [address] Dr. Ekta OconnorV (RBC) [Entitic vol]96.0 pXAdieyj94.0-99.0The [facility] HospitalComment on above:Performed By: #### CMP #### [facility] [address] [place] [address] Dr. Ekta Rivas #0.9 103/ulCritically high0.3-0.8The [facility] Comment on above:Performed By: #### CMP #### [facility] [address] [place] [address] Dr. Ekta Perkinsocytes/100 WBC (Bld)9.7 %Normal1.7-12.0The [facility] Comment on above:Performed By: #### CMP #### [facility] [address] [place] [address] Dr. Ekta Salazar #6.4 103/ulNormal1.4-6.5The [facility] HospitalComment on above:Performed By: #### CMP #### [facility] [address] [place] [address] Dr. Ekta Sheldonutrophils/100 WBC (Bld)70.0 %Dxsdvd66.0-75.0The [facility] HospitalComment on above:Performed By: #### CMP #### [facility] [address] [place] [address] Dr. Ekta Salomonlet mean volume (Bld) [Entitic vol]9.3 fLCritically low 9.5-13.5The [facility] HospitalComment on above:Performed By: #### CMP #### [facility] [address] [place] [address] Dr. Ekta FunkPLT308 103/kqGaicvb471-268Tyi [facility] HospitalComment on above: Performed By: #### CMP #### [facility] [address] [address] [address] Ekta FunkRBC3.54 106/ulCritically low4.20-5.40The [facility] Campusment on above:Performed By: #### CMP #### [facility] [address] [address] [address] Ekta FunkWBC9.1 103/ulNormal4.0-11.0The [facility] HospitalComment on above: Performed By: #### CMP #### [facility] [address] [address] [address] Ekta FunkCPKon [id number] [Catalytic activity/Vol]21 U/LCritically low 26-192The [facility] on above:Performed By: #### B12FOL, VITAD, IRON #### [facility] [address] [place] [address] Dr. Ekta FunkCT STROKE HEAD WOon [id number] STROKE HEAD WOEXAMINATION: CT STROKE HEAD WO HISTORY: Headache, confusion, [...] authenticated by: VANESSA PARADA Date: 2022-11-24 11:09 [facility] W CONon [id number] HEAD WO W CON EXAMINATION: CTA HEAD [...] Electronically authenticated by: DANIEL PINEDA Date: 2022-11-24 12:41NormalThe [facility] HospitalCULTURE URINEon [id number] URINECulture Observations: NO GROWTH.NormalThe [facility] HospitalComment on above:Performed By: #### INSULIN #### [facility] [address] [place] [address] Dr. Ekta Reed-19 PCR (CVDTB)on [id number]-CoV-2 (COVID-19) RNA GANESH+probe Ql (Unsp spec)Not detectedNormalNOT DETECTEDThe [facility] Comment on above:Result Comment: When diagnostic testing is negative, the [...] for this test is supported by the [place] of Health and Human Service's declaration that circumstances exist to justify the emergency use of in vitro diagnostics for the detection and/or diagnosis of the virus that causes COVID-19. This EUA will remain in effect for the duration of the COVID-19 declaration justifying emergency of IVDs, unless it is terminated or revoked by the FDA (after which the test may no longer be used).Performed By: #### CVDTBH #### [facility] [address] [place] [address] Dr. Dash ChangECastro URINE PROFILEon 09-95-3523Jhgdjbdgw Ql (U)NegativeNormal NEGATIVEThe [facility] HospitalComment on above:Performed By: #### CBC #### [facility] [address] [place] [address] Dr. Ekta Burgos (U)CLEARNormalCLEARThe [facility] HospitalComment on above: Performed By: #### CBC #### [facility] [address] [place] [address] Dr. Yilan ChangColor (U)LT. YELLOWNormalYELLOWOhiohealth Nelsonville Health CenterComment on above:Performed By: #### CBC #### [facility] [address] [place] [address] Dr. Ekta Chan micrscopic examination will be performed if indicated. NormalThe [facility] HospitalComment on above:Performed By: #### CBC #### [facility] [address] [address] [address] Ekta FunkGlucose Ql (U)NegativeNormalNEGATIVEOhiohealth Nelsonville Health CenterComment on above:Performed By: #### CBC #### [facility] [address] [place] [address] Dr. Ekta FunkHemoglobin Ql (U)NegativeNormalNEGATIVEToledo Hospital on above:Performed By: #### CBC #### [facility] [address] [place] [address] Dr. Ekta FunkKetones Ql (U)NegativeNormalNEGATIVEOhiohealth Nelsonville Health CenterComment on above:Performed By: #### CBC #### [facility] [address] [place] [address] Dr. Ekta FunkLEUKOCYTESNegativeNormalNEGATIVEOhiohealth Nelsonville Health CenterComment on above:Performed By: #### CBC #### [facility] [address] [place] [address] Dr. Ekta FunkNitrite Ql (U)NegativeNormalNEGATIVEOhiohealth Nelsonville Health CenterComment on above:Performed By: #### CBC #### [facility] [address] [place] [address] Dr. Ekta FunkpH (U)5.5 [pH]Normal5-9Ohiohealth Nelsonville Health CenterComment on above: Performed By: #### CBC #### [facility] [address] [place] [address] Dr. Ekta FunkSPEC GRAVITY1.950Fwytra2.005-<=1.025Ohiohealth Nelsonville Health CenterComment on above:Performed By: #### CBC #### [facility] [address] [place] [address] Dr. Ekta FunkUA PROTEINNegativeNormalNEGATIVE/ TRACEThe [facility] Comment on above:Performed By: #### CBC #### [facility] [address] [address] [address] Ekta Villarreal MICRO INDNOT INDICATEDNoToledo HospitalComment on above:Performed By: #### CBC #### [facility] [address] [address] [address] Ekta FunkUrobilinogen Qn (U)0.2 {Ivan'U}/dLNormal0.2 - 1.0The [facility] HospitalComment on above:Performed By: #### CBC #### [facility] [address] [address] [address] Ekta FunkGLYCOHEMOGLOBIN A1Con [id number] RECOMMENDATIONSEE BELOWNormal The [facility] HospitalComment on above:Result Comment: ADA RECOMMENDED LIMIT 4.0 - 6.0 ADA THERAPEUTIC TARGET < 7.0 ACTION SUGGESTED > 7.0Performed By: #### B12FOL, VITAD, IRON #### [facility] [address] [address] [address] Ekta FunkGlucose [Mass/Vol]143 mg/dLNoToledo HospitalComment on above:Performed By: #### B12FOL, VITAD, IRON #### [facility] [address] [address] [address] Ekta FunkHbA1c (Bld) [Mass fraction]6.6 %Critically high4.5-6.2The [facility] HospitalComment on above:Performed By: #### B12FOL, VITAD, IRON #### [facility] [address] [address] [address] Ekta FunkLACTATE/LACTIC ACIDon 75-35-8948Oametem [Moles/Vol]1.6 mmol/L Normal0.4-2.0The [facility] HospitalComment on above:Performed By: #### CMP #### [facility] [address] [place] [address] Dr. Ekta FunkLactate [Moles/Vol]2.1 mmol/LCritically high0.4-2.0The [facility] on above:Performed By: #### B12FOL, VITAD, IRON #### [facility] [address] [place] [address] Dr. Ekta EncinasASEon 76-21-2835Edtlmg [Catalytic activity/Vol]165.0 U/LNormal 73.0-393.0[facility] on above:Performed By: #### B12FOL, VITAD, IRON #### [facility] [address] [place] [address] Dr. Ekta EncinasID PROFILEon [id number]-HDL RATIO NORMSEE [facility] MiamisburgComfresenius [facility] on above:Result Comment: 3.3 - 4.4 LOW RISK 4.4 - 7.1 AVERAGE RISK 7.1 - 11.0 MODERATE RISK >11.0 HIGH RISKPerformed By: #### B12FOL, VITAD, IRON #### [facility] [address] [place] [address] Dr. Ekta Tejedaesterol [Mass/Vol]248 mg/dLCritically high<=200The [facility] on above:Performed By: #### B12FOL, VITAD, IRON #### [facility] [address] [place] [address] Dr. Ekta FunkCholesterol in HDL [Mass/Vol]58 mg/kGCktmwc77-52IktMercy Health – The Jewish Hospital on above:Performed By: #### B12FOL, VITAD, IRON #### [facility] [address] [place] [address] Dr. Ekta FunkCholesterol in LDL [Mass/Vol]165.6 mg/dLUK Healthcare on above:Performed By: #### B12FOL, VITAD, IRON #### [facility] [address] [place] [address] Dr. Ekta Holt.total/Cholesterol in HDL [Mass ratio]4.3 {ratio} NormalThe [facility] on above:Performed By: #### B12FOL, VITAD, IRON #### [facility] [address] [address] [address] Ekta Uriarte NORMAL> or = 60 mg/dl - LOW CARDIOVASCULAR RISK <40 mg/dl - HIGH CARDIOVASCULAR RISKOhioHealth Arthur G.H. Bing, MD, Cancer CenterComment on above:Performed By: #### B12FOL, VITAD, IRON #### [facility] [address] [address] [address] Ekta FunkLDL CALC NORMALSEE BELOWNoToledo HospitalComment on above:Result Comment: <100 mg/dl OPTIMAL 100 - 129 mg/dl NEAR OR ABOVE OPTIMAL 130 - 159 mg/dl BORDERLINE HIGH 160 - 189 mg/dl HIGH >190 mg/dl VERY HIGH Performed By: #### B12FOL, VITAD, IRON #### [facility] [address] [address] [address] Ekta FunkTriglyceride [Mass/Vol]122 mg/dLNormal<=150[facility] Comment on above:Performed By: #### B12FOL, VITAD, IRON #### [facility] [address] [address] [address] Ekta Flores CALC24.4 mg/dLOhioHealth Arthur G.H. Bing, MD, Cancer CenterComment on above: Performed By: #### B12FOL, VITAD, IRON #### [facility] [address] [address] [address] Ekta FunkLeonardo BRAIN WO CONon [id number] BRAIN WO [facility] BRAIN WO CON 11/24/2022 6:51 PM EDT [...] Electronically authenticated by: RAVEN ELAINE Date: 2022-11-24 19:35Normal The [facility] HospitalPROF 14(COMP METB)on 60-66-3254Vbkavkv [Mass/Vol]2.7 g/dL Critically low3.4-5.0The [facility] Campusment on above:Performed By: #### B12FOL, VITAD, IRON #### [facility] [address] [address] [address] Ekta FunkAlbumin/Globulin [Mass ratio]0.6 {ratio}NormalThe [facility] HospitalComment on above:Performed By: #### B12FOL, VITAD, IRON #### [facility] [address] [address] [address] Ekta Cowart [Catalytic activity/Vol]85 U/ONdbxso89-341Rec [facility] on above:Performed By: #### B12FOL, VITAD, IRON #### [facility] [address] [address] [address] Ekta Mccormick [Catalytic activity/Vol]18 U/DDevnxa75-00Yep [facility] Campusment on above:Performed By: #### B12FOL, VITAD, IRON #### [facility] [address] [address] [address] Ekta Harrison gap [Moles/Vol]18.9 mmol/LNormalThe [facility] Comment on above:Performed By: #### B12FOL, VITAD, IRON #### [facility] [address] [address] [address] Ekta Gonzalez [Catalytic activity/Vol]16 U/IFzjxlp41-77Hhs Lolis HospitalComment on above:Performed By: #### B12FOL, VITAD, IRON #### [facility] [address] [address] [address] Ekta FunkBilirubin [Mass/Vol]0.4 mg/dLNormal0.2-1.0[facility] Comment on above:Performed By: #### B12FOL, VITAD, IRON #### [facility] [address] [address] [address] Ekta FunkCalcium [Mass/Vol]9.5 mg/dLNormal8.5-10.1[facility] Comment on above:Performed By: #### B12FOL, VITAD, IRON #### [facility] [address] [address] [address] Ekta FunkChloride [Moles/Vol]108 mmol/LCritically obto18-904VhuMercy Health – The [facility] Hospital on above:Performed By: #### B12FOL, VITAD, IRON #### [facility] [address] [place] [address] Dr. Ekta FunkCO2 [Moles/Vol]21.1 mmol/KWjxpdb03.0-32.0[facility] Comment on above:Performed By: #### B12FOL, VITAD, IRON #### [facility] [address] [address] [address] Ekta FunkCreatinine [Mass/Vol]2.08 mg/dLCritically high0.55-1.02The [facility] HospitalComment on above:Performed By: #### B12FOL, VITAD, IRON #### [facility] [address] [place] [address] Dr. Dash ChangEGFR-AF IKEMUIHX56 mL/min/1.08j4Jsmpwnmffb low>=60The [facility] on above:Performed By: #### B12FOL, VITAD, IRON #### [facility] [address] [place] [address] Dr. Ekta AbebeGFR-NON AF OMQUTXJG27 mL/min/1.90l1Sxcypnpkcs low>=60The [facility] HospitalComment on above:Performed By: #### B12FOL, VITAD, IRON #### [facility] [address] [address] [address] Ekta FunkGlobulin (S) [Mass/Vol]4.6 g/dLNoToledo HospitalComment on above:Performed By: #### B12FOL, VITAD, IRON #### [facility] [address] [address] [address] Ekta FunkGlucose [Mass/Vol]119 mg/dLCritically dcms56-631Srb [facility] HospitalComment on above:Performed By: #### B12FOL, VITAD, IRON #### [facility] [address] [place] [address] Dr. Ekta FunkPotassium [Moles/Vol]5.0 mmol/LNormal3.5-5.1[facility] Comment on above:Performed By: #### B12FOL, VITAD, IRON #### [facility] [address] [address] [address] Ekta FunkProtein [Mass/Vol]7.3 g/dLNormal6.4-8.2[facility] Comment on above:Performed By: #### B12FOL, VITAD, IRON #### [facility] [address] [place] [address] Dr. Ekta FunkSodium [Moles/Vol]143 mmol/OMcmnpf559-549JkfOhiohealth Nelsonville Health Center Comment on above:Performed By: #### B12FOL, VITAD, IRON #### [facility] [address] [place] [address] Dr. Ekta FunkUrea nitrogen [Mass/Vol]37.0 mg/dLCritically high7.0-18.0The [facility] HospitalComment on above:Performed By: #### B12FOL, VITAD, IRON #### [facility] [address] [place] [address] Dr. Ekta FunkUrea nitrogen/Creatinine [Mass ratio]17.8 mg/mgNoToledo HospitalComment on above:Performed By: #### B12FOL, VITAD, IRON #### [facility] [address] [address] [address] Ekta Rich, HIGH SENSITIVITYon 91-55-9686LLDJGX17.1 pg/mLNormal 4.0-51.3The [facility] on above:Result Comment: CUT-OFF POINTS HAVE BEEN ESTABLISHED BASED ON THE FOURTH UNIVERSAL DEFINITIONS OF MYOCARDIAL INFARCTION. THE UPPER REFERENCE LIMIT (URL) OF TROPONIN, DEFINED THE 99TH PERCENTILE OF cTnI DISTRIBUTION IN A REFERENCE POPULATION, HAS BEEN CONFIRMED THE DECISION THRESHOLD FOR PA DIAGNOSIS.Performed By: #### B12FOL, VITAD, IRON #### [facility] [address] [place] [address] Dr. Ekta Carmona 31-97-0388XFX9.184 uIU/mLNormal0.358-3.740The [facility] on above:Performed By: #### B12FOL VITAD, IRON #### [facility] [address] [place] [address] Dr. Ekta FunkXR CHEST 1 Von [id number] CHEST 1 VEXAM: XR CHEST 1 V HISTORY: COUGH confusion [...] Electronically authenticated by: NATALIIA TATE Date: 2022-11-24 11:00NormMercy Health Clermont HospitalBNPon 08-86-5861Bnjjbteuurh peptide B (Bld) [Mass/Vol]565.0 pg/mLNormal<=900.0The [facility] on above:Performed By: #### INSULIN #### [facility] [address] [place] [address] Dr. Ekta FunkC AUTO DIFFon 08-67-2522KMYH #0.1 103/ulNormal0.0-0.1The [facility] HospitalComment on above:Performed By: #### CBC #### [facility] [address] [place] [address] Dr. Ekta FunkBasophils/100 WBC (Bld)0.6 %Normal0.2-2.0[facility] Comment on above:Performed By: #### CBC #### [facility] [address] [place] [address] Dr. Ekta Anthony #0.4 103/ulNormal0.0-0.7The [facility] HospitalComment on above: Performed By: #### CBC #### [facility] [address] [place] [address] Dr. Ekta Abebeosinophils/100 WBC (Bld)3.7 %Normal0.9-7.0[facility] Comment on above:Performed By: #### CBC #### [facility] [address] [place] [address] Dr. Ekta Abeberythrocyte distribution width (RBC) [Ratio]13.2 %Hoobng03.0-15.0 [facility] Health CenterComment on above:Performed By: #### CBC #### [facility] [address] [place] [address] Dr. Ekta FunkHematocrit (Bld) [Volume fraction]36.7 %Zyingq90.0-48.0The [facility] HospitalComment on above:Performed By: #### CBC #### [facility] [address] [place] [address] Dr. Ekta FunkHemoglobin (Bld) [Mass/Vol]12.4 g/qTUukssa64.0-16.0The [facility] HospitalComment on above:Performed By: #### CBC #### [facility] [address] [place] [address] Dr. Ekta Olivares #0.10 10e3/ulCritically high0.00-0.03[facility] Comment on above:Performed By: #### CBC #### [facility] [address] [place], [place] [id number] Dr. Ekta Olivares %1.0 %Critically high0.0-0.5The [facility] HospitalComment on above:Performed By: #### CBC #### [facility] [address] [place] [address] Dr. Ekta Putnam #1.5 103/ulNormal1.2-3.8The [facility] HospitalComment on above:Performed By: #### CBC #### [facility] [address] [place] [address] Dr. Ekta Lundberghocytes/100 WBC (Bld)14.9 %Critically low20.5-60.0The [facility] HospitalComment on above:Performed By: #### CBC #### [facility] [address] [place] [address] Dr. Ekta MaloneUAL DIFF REQNONormalThe [facility] HospitalComment on above: Performed By: #### CBC #### [facility] [address] [place] [address] Dr. Ekta Oconnor (RBC) [Entitic mass]32.8 tmMhkjmo98.7-34.0The [facility] HospitalComment on above:Performed By: #### CBC #### [facility] [address] [place] [address] Dr. Ekta Oconnor (RBC) [Mass/Vol]33.8 g/dOVopnpj43.9-35.2The [facility] HospitalComment on above:Performed By: #### CBC #### [facility] [address] [place] [address] Dr. Ekta Oconnor (RBC) [Entitic vol]97.1 pMZzrnbb69.0-99.0The [facility] HospitalComment on above:Performed By: #### CBC #### [facility] [address] [place] [address] Dr. Ekta Rivas #0.8 103/ulNormal0.3-0.8The [facility] HospitalComment on above:Performed By: #### CBC #### [facility] [address] [place] [address] Dr. Ekta Perkinsocytes/100 WBC (Bld)7.7 %Normal1.7-12.0The [facility] Comment on above:Performed By: #### CBC #### [facility] [address] [place] [address] Dr. Ekta Salazar #7.3 103/ulCritically high1.4-6.5ThBlanchard Valley Health [facility] Comment on above:Performed By: #### CBC #### [facility] [address] [place] [address] Dr. Ekta Sheldonutrophils/100 WBC (Bld)72.1 %Mabkqq26.0-75.0The [facility] HospitalComment on above:Performed By: #### CBC #### [facility] [address] [place] [address] Dr. Ekta Trevino mean volume (Bld) [Entitic vol]9.4 fLCritically low 9.5-13.5The [facility] HospitalComment on above:Performed By: #### CBC #### [facility] [address] [place] [address] Dr. Ekta DriverT251 103/jxMmzbxb815-425Bdf [facility] HospitalComment on above: Performed By: #### CBC #### [facility] [address] [place] [address] Dr. Ekta FunkRBC3.78 106/ulCritically low4.20-5.40The [facility] HospitalComment on above:Performed By: #### CBC #### [facility] [address] [place] [address] Dr. Ekta FunkWBC10.1 103/ulNormal4.0-11.0The [facility] HospitalComment on above:Performed By: #### CBC #### [facility] [address] [place] [address] Dr. Ekta Correa THYROXINE INDEX T7on 31-91-5634UYX2.83Qgwlnf1.30-4.50The [facility] HospitalComment on above:Performed By: #### INSULIN #### [facility] [address] [address] [address] Ekta FunkT3U35.0 %Qaqxwz26.0-39.0The [facility] HospitalComment on above: Performed By: #### INSULIN #### [facility] [address] [place] [address] Dr. Ekta FunkT4 [Mass/Vol]7.80 ug/dLNormal4.80-13.90The [facility] Comment on above:Performed By: #### INSULIN #### [facility] [address] [place] [address] Dr. Ekta FunkGLYCOHEMOGLOBIN A1Con 96-42-2233XFK RECOMMENDATIONSEE BELOWMercy Health Springfield Regional Medical CenterComment on above:Result Comment: ADA RECOMMENDED LIMIT 4.0 - 6.0 ADA THERAPEUTIC TARGET < 7.0 ACTION SUGGESTED > 7.0Performed By: #### B12FOL, VITAD, IRON #### [facility] [address] [place] [address] Dr. Ekta FunkGlucose [Mass/Vol]134 mg/dLNormMercy Health Clermont HospitalComment on above:Performed By: #### B12FOL, VITAD, IRON #### [facility] [address] [place] [address] Dr. Ekta FunkHbA1c (Bld) [Mass fraction]6.3 %Critically high4.5-6.2The [facility] HospitalComment on above:Performed By: #### B12FOL, VITAD, IRON #### [facility] 01 [place] [address] Dr. Ekta Shannon [id number] [Mass/Vol]55.0 ug/qXRhtdil89.0-170.0The [facility] HospitalComment on above:Performed By: #### B12FOL, VITAD, IRON #### [facility] [address] [place] [address] Dr. Ekta FunkLIPID PROFILEon [id number]-HDL RATIO NORMSEE [facility] Health MiamisburgComment on above:Result Comment: 3.3 - 4.4 LOW RISK 4.4 - 7.1 AVERAGE RISK 7.1 - 11.0 MODERATE RISK >11.0 HIGH RISKPerformed By: #### INSULIN #### [facility] [address] [place] [address] Dr. Ekta FunkCholesterol [Mass/Vol]294 mg/dLCritically high<=200The [facility] HospitalComment on above:Performed By: #### INSULIN #### [facility] [address] [place] [address] Dr. Ekta FunkCholesterol in HDL [Mass/Vol]64 mg/dLCritically ekjg72-65Jxl [facility] HospitalComment on above:Performed By: #### INSULIN #### [facility] [address] [place] [address] Dr. Ekta FunkCholesterol in LDL [Mass/Vol]197.2 mg/dLOhioHealth Arthur G.H. Bing, MD, Cancer CenterComment on above:Performed By: #### INSULIN #### [facility] [address] [place] [address] Dr. Ekta Holt.total/Cholesterol in HDL [Mass ratio]4.6 {ratio} NormalThe [facility] HospitalComment on above:Performed By: #### INSULIN #### [facility] [address] [place] [address] Dr. Ekta Uriarte NORMAL> or = 60 mg/dl - LOW CARDIOVASCULAR RISK <40 mg/dl - HIGH CARDIOVASCULAR RISKOhioHealth Arthur G.H. Bing, MD, Cancer CenterComment on above:Performed By: #### INSULIN #### [facility] [address] [place] [address] Dr. Ekta FunkLDL CALC NORMALSEE BELOWOhioHealth Arthur G.H. Bing, MD, Cancer CenterComment on above:Result Comment: <100 mg/dl OPTIMAL 100 - 129 mg/dl NEAR OR ABOVE OPTIMAL 130 - 159 mg/dl BORDERLINE HIGH 160 - 189 mg/dl HIGH >190 mg/dl VERY HIGH Performed By: #### INSULIN #### [facility] [address] [place] [address] Dr. Ekta FunkTriglyceride [Mass/Vol]164 mg/dLCritically high<=150The [facility] HospitalComment on above:Performed By: #### INSULIN #### [facility] [address] [address] [address] Ekta FunkVLDL CALC32.8 mg/dLNormalThe [facility] HospitalComment on above: Performed By: #### INSULIN #### [facility] [address] [address] [address] Ekta FunkPROF 14(COMP METB)on [id number] [Mass/Vol]3.0 g/dL Critically low3.4-5.0The [facility] HospitalComment on above:Performed By: #### INSULIN #### [facility] [address] [address] [address] Ekta FunkAlbumin/Globulin [Mass ratio]0.6 {ratio}NormalThe [facility] HospitalComment on above:Performed By: #### INSULIN #### [facility] [address] [place] [address] Dr. Ekta AlcantaraP [Catalytic activity/Vol]92 U/UPbvfjp35-509Fll [facility] HospitalComment on above:Performed By: #### INSULIN #### [facility] [address] [address] [address] Ekta Mccormick [Catalytic activity/Vol]26 U/RRhfgnu89-27Mii [facility] HospitalComment on above:Performed By: #### INSULIN #### [facility] [address] [address] [address] Ekta Harrison gap [Moles/Vol]16.2 mmol/LNormalThe [facility] Comment on above:Performed By: #### INSULIN #### [facility] [address] [address] [address] Ekta FunkAST [Catalytic activity/Vol]16 U/BHsaqhh52-11Wdt [facility] HospitalComment on above:Performed By: #### INSULIN #### [facility] [address] [address] [address] Ekta FunkBilirubin [Mass/Vol]0.5 mg/dLNormal0.2-1.0The [facility] Comment on above:Performed By: #### INSULIN #### [facility] [address] [address] [address] Ekta FunkCalcium [Mass/Vol]9.7 mg/dLNormal8.5-10.1The [facility] Comment on above:Performed By: #### INSULIN #### [facility] [address] [address] [address] Ekta FunkChloride [Moles/Vol]105 mmol/TIximsp96-400Kwi [facility] Comment on above:Performed By: #### INSULIN #### [facility] [address] [address] [address] Ekta FunkCO2 [Moles/Vol]24.9 mmol/IOxpfsi56.0-32.0The [facility] Comment on above:Performed By: #### INSULIN #### [facility] [address] [address] [address] Ekta FunkCreatinine [Mass/Vol]2.18 mg/dLCritically high0.55-1.02The [facility] HospitalComment on above:Performed By: #### INSULIN #### [facility] [address] [address] [address] Dash ChangEGFR-AF MDKZMXKR79 mL/min/1.01q7Ktgvqihapb low>=60The [facility] HospitalComment on above:Performed By: #### INSULIN #### [facility] [address] [address] [address] Ekta AbebeGFR-NON AF SAWGGEBT96 mL/min/1.50w7Daiiwjjgkn low>=60The [facility] HospitalComment on above:Performed By: #### INSULIN #### [facility] [address] [address] [address] Ekta FunkGlobulin (S) [Mass/Vol]4.7 g/dLNormalThe [facility] HospitalComment on above:Performed By: #### INSULIN #### [facility] [address] [address] [address] Ekta FunkGlucose [Mass/Vol]114 mg/dLCritically clbp94-111Bfy [facility] HospitalComment on above:Performed By: #### INSULIN #### [facility] [address] [address] [address] Ekta FunkPotassium [Moles/Vol]5.1 mmol/LNormal3.5-5.1The [facility] Comment on above:Performed By: #### INSULIN #### [facility] [address] [address] [address] Ekta FunkProtein [Mass/Vol]7.7 g/dLNormal6.4-8.2The [facility] Comment on above:Performed By: #### INSULIN #### [facility] [address] [address] [address] Ekta FunkSodium [Moles/Vol]141 mmol/GIvgkov516-020Aoq [facility] Comment on above:Performed By: #### INSULIN #### [facility] [address] [address] [address] Ekta FunkUrea nitrogen [Mass/Vol]51.0 mg/dLCritically high7.0-18.0The [facility] HospitalComment on above:Performed By: #### INSULIN #### [facility] [address] [address] [address] Ekta Spring nitrogen/Creatinine [Mass ratio]23.4 mg/mgNormalThe [facility] HospitalComment on above:Performed By: #### INSULIN #### [facility] [address] [address] [address] Ekta DoanHorama 97-77-2898RIE2.935 uIU/mLNormal0.358-3.740Ohio[facility] Health CenterComment on above:Performed By: #### INSULIN #### [facility] [address] [address] [address] Ekta FunkXR CHEST 2 Von [id number] CHEST 2 VEXAMINATION: XR CHEST 2 V HISTORY: Fatigue COMPARISON: [...] Electronically authenticated by: GODWIN BECK Date: 2022-11-13 15:40NoToledo HospitalPROF 14(COMP METB)on 30-69-6308Tsjfhxn [Mass/Vol]3.0 g/dL Critically low3.4-5.0The [facility] HospitalComment on above:Performed By: #### B12FOL, VITAD, IRON #### [facility] [address] [place] [address] Dr. Ekta FunkAlbumin/Globulin [Mass ratio]0.7 {ratio}NormalThe [facility] HospitalComment on above:Performed By: #### B12FOL, VITAD, IRON #### [facility] [address] [place] [address] Dr. Ekta Cowart [Catalytic activity/Vol]89 U/VHmbftv21-407Klk [facility] HospitalComment on above:Performed By: #### B12FOL, VITAD, IRON #### [facility] [address] [place] [address] Dr. Ekta Mccormick [Catalytic activity/Vol]29 U/YEhqqbo55-59Gos [facility] HospitalComment on above:Performed By: #### B12FOL, VITAD, IRON #### [facility] [address] [place] [address] Dr. Ekta Harrison gap [Moles/Vol]15.2 mmol/LNormalThe [facility] Comment on above:Performed By: #### B12FOL, VITAD, IRON #### [facility] [address] [place] [address] Dr. Ekta FunkAST [Catalytic activity/Vol]14 U/LCritically dow70-35Fkb [facility] HospitalComment on above:Performed By: #### B12FOL, VITAD, IRON #### [facility] [address] [place] [address] Dr. Ekta FunkBilirubin [Mass/Vol]0.4 mg/dLNormal0.2-1.0The [facility] Comment on above:Performed By: #### B12FOL, VITAD, IRON #### [facility] [address] [address] [address] Ekta FunkCalcium [Mass/Vol]9.1 mg/dLNormal8.5-10.1[facility] Comment on above:Performed By: #### B12FOL, VITAD, IRON #### [facility] [address] [place] [address] Dr. Ekta FunkChloride [Moles/Vol]106 mmol/DFyqjzn99-905KgrOhiohealth [facility]ville [facility] Center Comment on above:Performed By: #### B12FOL, VITAD, IRON #### [facility] [address] [place] [address] Dr. Ekta FunkCO2 [Moles/Vol]24.2 mmol/KNnylcd65.0-32.0[facility] Comment on above:Performed By: #### B12FOL, VITAD, IRON #### [facility] [address] [place] [address] Dr. Ekta FunkCreatinine [Mass/Vol]1.89 mg/dLCritically high0.55-1.02[facility] CenterComment on above:Performed By: #### B12FOL, VITAD, IRON #### [facility] [address] [place] [address] Dr. Ekta AbebeGFR-AF GEZMDRRO07 mL/min/1.78i4Lfwhnzjzcv low>=60The [facility] HospitalComment on above:Performed By: #### B12FOL, VITAD, IRON #### [facility] [address] [place] [address] Dr. Ekta AbebeGFR-NON AF SMXQAUBG65 mL/min/1.33h6Dafrbehjjh low>=60[facility] CenterComment on above:Performed By: #### B12FOL, VITAD, IRON #### [facility] [address] [place] [address] Dr. Ekta FunkGlobulin (S) [Mass/Vol]4.1 g/dLNormalThe [facility] HospitalComment on above:Performed By: #### B12FOL, VITAD, IRON #### [facility] [address] [place] [address] Dr. Ekta FunkGlucose [Mass/Vol]108 mg/dLCritically elno51-695Hku [facility] HospitalComment on above:Performed By: #### B12FOL, VITAD, IRON #### [facility] [address] [place] [address] Dr. Ekta FunkPotassium [Moles/Vol]4.4 mmol/LNormal3.5-5.1[facility] Comment on above:Performed By: #### B12FOL, VITAD, IRON #### [facility] [address] [place] [address] Dr. Ekta FunkProtein [Mass/Vol]7.1 g/dLNormal6.4-8.2[facility] Comment on above:Performed By: #### B12FOL, VITAD, IRON #### [facility] [address] [place] [address] Dr. Ekta FunkSodium [Moles/Vol]141 mmol/UNbnvjy694-516EmcOhiohealth [facility]ville Health Center Comment on above:Performed By: #### B12FOL, VITAD, IRON #### [facility] [address] [place] [address] Dr. Ekta FunkUrea nitrogen [Mass/Vol]40.0 mg/dLCritically high7.0-18.0The [facility] HospitalComment on above:Performed By: #### B12FOL, VITAD, IRON #### [facility] [address] [place] [address] Dr. Ekta Spring nitrogen/Creatinine [Mass ratio]21.2 mg/mgNormalThe [facility] HospitalComment on above:Performed By: #### B12FOL, VITAD, IRON #### [facility] [address] [place] [address] Dr. Ekta Vaughan 19-04-5792Imbvectuzwu peptide B (Bld) [Mass/Vol]507.0 pg/mL Normal<=900.0The [facility] HospitalComment on above:Performed By: #### B12FOL, VITAD, IRON #### [facility] [address] [place] [address] Dr. Ekta Agarwal AUTO DIFFon [id number] #0.0 103/ulNormal0.0-0.1The [facility] HospitalComment on above:Performed By: #### CBC #### [facility] [address] [place] [address] Dr. Ekta FunkBasophils/100 WBC (Bld)0.2 %Normal0.2-2.0The [facility] Comment on above:Performed By: #### CBC #### [facility] [address] [place] [address] Dr. Ekta Anthony #0.1 103/ulNormal0.0-0.7The [facility] HospitalComment on above: Performed By: #### CBC #### [facility] [address] [place] [address] Dr. Ekta Abebeosinophils/100 WBC (Bld)1.1 %Normal0.9-7.0The [facility] Comment on above:Performed By: #### CBC #### [facility] [address] [place] [address] Dr. Ekta Abeberythrocyte distribution width (RBC) [Ratio]12.8 %Zsdlbt91.0-15.0 The [facility] HospitalComment on above:Performed By: #### CBC #### [facility] [address] [place] [address] Dr. Ekta FunkHematocrit (Bld) [Volume fraction]37.1 %Nkthrq40.0-48.0The [facility] HospitalComment on above:Performed By: #### CBC #### [facility] [address] [place] [address] Dr. Ekta FunkHemoglobin (Bld) [Mass/Vol]13.0 g/qYVbduqd08.0-16.0[facility] CenterComment on above:Performed By: #### CBC #### [facility] [address] [place] [address] Dr. Ekta Olivares #0.11 10e3/ulCritically high0.00-0.03The [facility] Comment on above:Performed By: #### CBC #### [facility] [address] [place] [address] Dr. Ekta Olivares %1.1 %Critically high0.0-0.5The [facility] HospitalComment on above:Performed By: #### CBC #### [facility] [address] [place] [address] Dr. Ekta Putnam #1.6 103/ulNormal1.2-3.8The [facility] HospitalComment on above:Performed By: #### CBC #### [facility] [address] [place] [address] Dr. Ekta Lundberghocytes/100 WBC (Bld)15.6 %Critically low20.5-60.0The [facility] HospitalComment on above:Performed By: #### CBC #### [facility] [address] [place] [address] Dr. Ekta Beckham DIFF REQNONormalThe [facility] HospitalComment on above: Performed By: #### CBC #### [facility] [address] [place] [address] Dr. Ekta Frye (RBC) [Entitic mass]32.8 dcToobfh49.7-34.0The [facility] HospitalComment on above:Performed By: #### CBC #### [facility] [address] [place] [address] Dr. Ekta Song (RBC) [Mass/Vol]35.0 g/yGFufkwv48.9-35.2The [facility] HospitalComment on above:Performed By: #### CBC #### [facility] [address] [place] [address] Dr. Ekta Estevez (RBC) [Entitic vol]93.7 uTIysjqz52.0-99.0The [facility] HospitalComment on above:Performed By: #### CBC #### [facility] [address] [place] [address] Dr. Ekta Rivas #0.9 103/ulCritically high0.3-0.8The [facility] Comment on above:Performed By: #### CBC #### [facility] [address] [place] [address] Dr. Ekta Perkinsocytes/100 WBC (Bld)8.3 %Normal1.7-12.0[facility] Comment on above:Performed By: #### CBC #### [facility] [address] [place] [address] Dr. Ekta Salazar #7.5 103/ulCritically high1.4-6.5The [facility] Comment on above:Performed By: #### CBC #### [facility] [address] [place] [address] Dr. Ekta Pelletierophils/100 WBC (Bld)73.7 %Lkfmpq89.0-75.0The [facility] HospitalComment on above:Performed By: #### CBC #### [facility] [address] [place] [address] Dr. Ekta Salomonlet mean volume (Bld) [Entitic vol]10.3 fLNormal9.5-13.5The [facility] HospitalComment on above:Performed By: #### CBC #### [facility] [address] [place] [address] Dr. Ekta FunkPLT135 103/ulCritically ytp583-253Sbk [facility] HospitalComment on above:Performed By: #### CBC #### [facility] [address] [place] [address] Dr. Ekta FunkRBC3.96 106/ulCritically low4.20-5.40The [facility] HospitalComment on above:Performed By: #### CBC #### [facility] [address] [place] [address] Dr. Ekta FunkWBC10.2 103/ulNormal4.0-11.0The [facility] HospitalComment on above:Performed By: #### CBC #### [facility] [address] [place] [address] Dr. Yilan ChangPROF 14(COMP METB)on 21-24-9663Mhbcjou [Mass/Vol]2.7 g/dL Critically low3.4-5.0The [facility] HospitalComment on above:Performed By: #### B12FOL, VITAD, IRON #### [facility] [address] [place] [address] Dr. Ekta FunkAlbumin/Globulin [Mass ratio]0.8 {ratio}NormalThe [facility] HospitalComment on above:Performed By: #### B12FOL, VITAD, IRON #### [facility] [address] [place] [address] Dr. Ekta Cowart [Catalytic activity/Vol]74 U/SFyvbcs55-696Jsh [facility] HospitalComment on above:Performed By: #### B12FOL, VITAD, IRON #### [facility] [address] [place] [address] Dr. Ekta Mccormick [Catalytic activity/Vol]26 U/ZAgbjba82-19Dvj [facility] HospitalComment on above:Performed By: #### B12FOL, VITAD, IRON #### [facility] [address] [place] [address] Dr. Ekta Harrison gap [Moles/Vol]16.5 mmol/LNormalThe [facility] Comment on above:Performed By: #### B12FOL, VITAD, IRON #### [facility] [address] [place] [address] Dr. Ekta FunkAST [Catalytic activity/Vol]15 U/WGqqrop75-10Nfc [facility] Campusment on above:Performed By: #### B12FOL, VITAD, IRON #### [facility] [address] [place] [address] Dr. Ekta FunkBilirubin [Mass/Vol]0.4 mg/dLNormal0.2-1.0The [facility] Comment on above:Performed By: #### B12FOL, VITAD, IRON #### [facility] [address] [place] [address] Dr. Ekta FunkCalcium [Mass/Vol]8.1 mg/dLCritically low8.5-10.1The [facility] Campusment on above:Performed By: #### B12FOL, VITAD, IRON #### [facility] [address] [address] [address] Ekta FunkChloride [Moles/Vol]96 mmol/LCritically wrt32-489Cxy [facility] Campusment on above:Performed By: #### B12FOL, VITAD, IRON #### [facility] [address] [place] [address] Dr. Ekta FunkCO2 [Moles/Vol]26.1 mmol/CCgyutq04.0-32.0The [facility] Comment on above:Performed By: #### B12FOL, VITAD, IRON #### [facility] [address] [place] [address] Dr. Ekta FunkCreatinine [Mass/Vol]3.28 mg/dLCritically high0.55-1.02The [facility] HospitalComment on above:Performed By: #### B12FOL, VITAD, IRON #### [facility] [address] [place] [address] Dr. Dash ChangEGFR-AF EDMCOYTM78 mL/min/1.35p3Kyxqnbguql low>=60The [facility] on above:Performed By: #### B12FOL, VITAD, IRON #### [facility] [address] [place] [address] Dr. Ekta AbebeGFR-NON AF VCGVTCQE82 mL/min/1.68v5Pqddgieojr low>=60The [facility] HospitalComment on above:Performed By: #### B12FOL, VITAD, IRON #### [facility] [address] [place] [address] Dr. Ekta FunkGlobulin (S) [Mass/Vol]3.6 g/dLNormalThe [facility] HospitalComment on above:Performed By: #### B12FOL, VITAD, IRON #### [facility] [address] [place] [address] Dr. Ekta FunkGlucose [Mass/Vol]132 mg/dLCritically vdjb61-335Uam [facility] HospitalComment on above:Performed By: #### B12FOL, VITAD, IRON #### [facility] [address] [address] [address] Ekta FunkPotassium [Moles/Vol]4.6 mmol/LNormal3.5-5.1The [facility] Comment on above:Performed By: #### B12FOL, VITAD, IRON #### [facility] [address] [address] [address] Ekta FunkProtein [Mass/Vol]6.3 g/dLCritically low6.4-8.2The [facility] HospitalComment on above:Performed By: #### B12FOL, VITAD, IRON #### [facility] [address] [place] [address] Dr. Ekta FunkSodium [Moles/Vol]134 mmol/LCritically uxr449-923Fwb [facility] HospitalComment on above:Performed By: #### B12FOL, VITAD, IRON #### [facility] [address] [address] [address] Ekta FunkUrea nitrogen [Mass/Vol]74.0 mg/dLCritically high7.0-18.0The [facility] HospitalComment on above:Performed By: #### B12FOL, VITAD, IRON #### [facility] [address] [place] [address] Dr. Ekta Spring nitrogen/Creatinine [Mass ratio]22.6 mg/mgNormalThe [facility] HospitalComment on above:Performed By: #### B12FOL, VITAD, IRON #### [facility] [address] [place] [address] Dr. Ekta Vaughan 50-22-8582Jtxuxysagxh peptide B (Bld) [Mass/Vol]1411.0 pg/mLCritically high<=900.0The [facility] Campusment on above:Performed By: #### B12FOL, VITAD, IRON #### [facility] [address] [place] [address] Dr. Ekta Agarwal AUTO DIFFon 17-02-5630TSXU #0.0 103/ulNormal0.0-0.1The [facility] Campusment on above:Performed By: #### B12FOL, VITAD, IRON #### [facility] [address] [place] [address] Dr. Ekta FunkBasophils/100 WBC (Bld)0.3 %Normal0.2-2.0The [facility] Comment on above:Performed By: #### B12FOL, VITAD, IRON #### [facility] [address] [place] [address] Dr. Ekta Anthony #0.1 103/ulNormal0.0-0.7The [facility] Campusment on above: Performed By: #### B12FOL, VITAD, IRON #### [facility] [address] [place] [address] Dr. Ekta Abebeosinophils/100 WBC (Bld)0.6 %Critically low0.9-7.0The [facility] Campusment on above:Performed By: #### B12FOL, VITAD, IRON #### [facility] [address] [place] [address] Dr. Ekta Abeberythrocyte distribution width (RBC) [Ratio]12.9 %Gaybpa51.0-15.[address] [facility] Campusment on above:Performed By: #### B12FOL, VITAD, IRON #### [facility] [address] [place] [address] Dr. Ekta FunkHematocrit (Bld) [Volume fraction]40.8 %Qomlyv14.0-48.0The [facility] Campusment on above:Performed By: #### B12FOL, VITAD, IRON #### [facility] [address] [place] [address] Dr. Ekta FunkHemoglobin (Bld) [Mass/Vol]14.0 g/fGYtfosg47.0-16.0The [facility] Campusment on above:Performed By: #### B12FOL, VITAD, IRON #### [facility] [address] [place] [address] Dr. Ekta FunkIG #0.09 10e3/ulCritically high0.00-0.03The [facility] Comment on above:Performed By: #### B12FOL, VITAD, IRON #### [facility] [address] [address] [address] Ekta Olivares %0.8 %Critically high0.0-0.5The [facility] HospitalComment on above:Performed By: #### B12FOL, VITAD, IRON #### [facility] [address] [address] [address] Ekta Putnam #1.8 103/ulNormal1.2-3.8The [facility] HospitalComment on above:Performed By: #### B12FOL, VITAD, IRON #### [facility] [address] [place] [address] Dr. Ekat Lundberghocytes/100 WBC (Bld)16.2 %Critically low20.5-60.0The [facility] HospitalComment on above:Performed By: #### B12FOL, VITAD, IRON #### [facility] [address] [place] [address] Dr. Ekta MaloneUAL DIFF REQNONormalThe [facility] HospitalComment on above: Performed By: #### B12FOL, VITAD, IRON #### [facility] [address] [place] [address] Dr. Ekta Oconnor (RBC) [Entitic mass]32.3 zpQcnngu78.7-34.0The [facility] HospitalComment on above:Performed By: #### B12FOL, VITAD, IRON #### [facility] [address] [place] [address] Dr. Ekta Oconnor (RBC) [Mass/Vol]34.3 g/pXKtcrop40.9-35.2The [facility] HospitalComment on above:Performed By: #### B12FOL, VITAD, IRON #### [facility] [address] [place] [address] Dr. Ekta Oconnor (RBC) [Entitic vol]94.2 wNHppken89.0-99.0The [facility] HospitalComment on above:Performed By: #### B12FOL, VITAD, IRON #### [facility] [address] [place] [address] Dr. Ekta Rivas #0.8 103/ulNormal0.3-0.8The [facility] HospitalComment on above:Performed By: #### B12FOL, VITAD, IRON #### [facility] [address] [place] [address] Dr. Ekta Perkinsocytes/100 WBC (Bld)7.3 %Normal1.7-12.0The [facility] Comment on above:Performed By: #### B12FOL, VITAD, IRON #### [facility] [address] [place] [address] Dr. Ekta Salazar #8.1 103/ulCritically high1.4-6.5The [facility] Comment on above:Performed By: #### B12FOL, VITAD, IRON #### [facility] [address] [place] [address] Dr. Ekta Sheldonutrophils/100 WBC (Bld)74.8 %Irgzao56.0-75.0The [facility] HospitalComment on above:Performed By: #### B12FOL, VITAD, IRON #### [facility] [address] [place] [address] Dr. Ekta Trevino mean volume (Bld) [Entitic vol]9.8 fLNormal9.5-13.5The [facility] HospitalComment on above:Performed By: #### B12FOL, VITAD, IRON #### [facility] [address] [place] [address] Dr. Ekta FunkPLT226 103/ifUpcjvn385-894Mpr [facility] HospitalComment on above: Performed By: #### B12FOL, VITAD, IRON #### [facility] [address] [place] [address] Dr. Ekta FunkRBC4.33 106/ulNormal4.20-5.40The [facility] HospitalComment on above:Performed By: #### B12FOL, VITAD, IRON #### [facility] [address] [address] [address] Ekta FunkWBC10.9 103/ulNormal4.0-11.0The [facility] HospitalComment on above:Performed By: #### B12FOL, VITAD, IRON #### [facility] [address] [address] [address] Ekta FunkPROF 14(COMP METB)on 30-30-5006Gpliypw [Mass/Vol]3.1 g/dL Critically low3.4-5.0The [facility] HospitalComment on above:Performed By: #### B12FOL, VITAD, IRON #### [facility] [address] [place] [address] Dr. Ekta FunkAlbumin/Globulin [Mass ratio]0.7 {ratio}NormalThe [facility] HospitalComment on above:Performed By: #### B12FOL, VITAD, IRON #### [facility] [address] [place] [address] Dr. Ekta Cowart [Catalytic activity/Vol]81 U/ZEtnysm18-944Jdk [facility] on above:Performed By: #### B12FOL, VITAD, IRON #### [facility] [address] [place] [address] Dr. Ekta Mccormick [Catalytic activity/Vol]30 U/RVdshbm09-72Lgb [facility] Campusment on above:Performed By: #### B12FOL, VITAD, IRON #### [facility] [address] [place] [address] Dr. Ekta Harrison gap [Moles/Vol]17.3 mmol/LNormalThe [facility] on above:Performed By: #### B12FOL, VITAD, IRON #### [facility] [address] [place] [address] Dr. Ekta Gonzalez [Catalytic activity/Vol]11 U/LCritically acj94-93Vpd [facility]ment on above:Performed By: #### B12FOL, VITAD, IRON #### [facility] [address] [address] [address] Ekta FunkBilirubin [Mass/Vol]0.5 mg/dLNormal0.2-1.0The [facility] Comment on above:Performed By: #### B12FOL, VITAD, IRON #### [facility] [address] [place] [address] Dr. Ekta FunkCalcium [Mass/Vol]8.6 mg/dLNormal8.5-10.1The [facility] Comment on above:Performed By: #### B12FOL, VITAD, IRON #### [facility] [address] [place] [address] Dr. Ekta FunkChloride [Moles/Vol]95 mmol/LCritically fbe76-189Tth [facility] HospitalComment on above:Performed By: #### B12FOL, VITAD, IRON #### [facility] [address] [place] [address] Dr. Ekta FunkCO2 [Moles/Vol]27.3 mmol/IGuidvf13.0-32.0[facility] Comment on above:Performed By: #### B12FOL, VITAD, IRON #### [facility] [address] [place] [address] Dr. Ekta FunkCreatinine [Mass/Vol]3.17 mg/dLCritically high0.55-1.02The [facility] HospitalComment on above:Performed By: #### B12FOL, VITAD, IRON #### [facility] [address] [place] [address] Dr. Ekta AbebeGFR-AF PAYHFIUL23 mL/min/1.45b4Cgocesiagm low>=60The [facility] HospitalComment on above:Performed By: #### B12FOL, VITAD, IRON #### [facility] [address] [place] [address] Dr. Ekta AbebeGFR-NON AF DOFXXPOL90 mL/min/1.78i5Rrgdatvmiw low>=60The [facility] HospitalComment on above:Performed By: #### B12FOL, VITAD, IRON #### [facility] [address] [address] [address] Ekta FunkGlobulin (S) [Mass/Vol]4.6 g/dLNormMercy Health Clermont HospitalComment on above:Performed By: #### B12FOL, VITAD, IRON #### [facility] [address] [address] [address] Ekta FunkGlucose [Mass/Vol]139 mg/dLCritically mion66-616Rrc [facility] HospitalComment on above:Performed By: #### B12FOL, VITAD, IRON #### [facility] [address] [address] [address] Ekta FunkPotassium [Moles/Vol]4.6 mmol/LNormal3.5-5.1The [facility] Comment on above:Performed By: #### B12FOL, VITAD, IRON #### [facility] [address] [place] [address] Dr. Ekta FunkProtein [Mass/Vol]7.7 g/dLNormal6.4-8.2The [facility] Comment on above:Performed By: #### B12FOL, VITAD, IRON #### [facility] [address] [place] [address] Dr. Ekta FunkSodium [Moles/Vol]135 mmol/LCritically egg419-128Flq [facility] HospitalComment on above:Performed By: #### B12FOL, VITAD, IRON #### [facility] [address] [place] [address] Dr. Ekta FunkUrea nitrogen [Mass/Vol]73.0 mg/dLCritically high7.0-18.0The [facility] HospitalComment on above:Performed By: #### B12FOL, VITAD, IRON #### [facility] [address] [place] [address] Dr. Ekta Spring nitrogen/Creatinine [Mass ratio]23.0 mg/mgNoToledo HospitalComment on above:Performed By: #### B12FOL, VITAD, IRON #### [facility] [address] [place] [address] Dr. Ekta Vaughan 66-78-7385Mdndcboyxkw peptide B (Bld) [Mass/Vol]2007.0 pg/mLCritically high<=900.0The [facility] HospitalComment on above:Performed By: #### CMP #### [facility] [address] [place] [address] Dr. Ekta Agarwal AUTO DIFFon [id number] #0.0 103/ulNormal0.0-0.1The [facility] HospitalComment on above:Performed By: #### CBC #### [facility] [address] [place] [address] Dr. Ekta FunkBasophils/100 WBC (Bld)0.2 %Normal0.2-2.0The [facility] Comment on above:Performed By: #### CBC #### [facility] [address] [place] [address] Dr. Dash ChangEO #0.1 103/ulNormal0.0-0.7The [facility] HospitalComment on above: Performed By: #### CBC #### [facility] [address] [place] [address] Dr. Ekta Abebeosinophils/100 WBC (Bld)0.9 %Normal0.9-7.0The [facility] Comment on above:Performed By: #### CBC #### [facility] [address] [place] [address] Dr. Ekta Abeberythrocyte distribution width (RBC) [Ratio]12.8 %Jfjkjp75.0-15.0 The [facility] HospitalComment on above:Performed By: #### CBC #### [facility] [address] [place] [address] Dr. Ekta FunkHematocrit (Bld) [Volume fraction]38.8 %Xvlygh60.0-48.0The [facility] HospitalComment on above:Performed By: #### CBC #### [facility] [address] [place] [address] Dr. Ekta FunkHemoglobin (Bld) [Mass/Vol]13.3 g/nQMnesmz27.0-16.0The [facility] HospitalComment on above:Performed By: #### CBC #### [facility] [address] [address] [address] Ekta Olivares #0.08 10e3/ulCritically high0.00-0.03The [facility] Comment on above:Performed By: #### CBC #### [facility] [address] [address] [address] Ekta Olivares %0.8 %Critically high0.0-0.5The [facility] HospitalComment on above:Performed By: #### CBC #### [facility] [address] [place] [address] Dr. Ekta Putnam #1.7 103/ulNormal1.2-3.8The [facility] HospitalComment on above:Performed By: #### CBC #### [facility] [address] [place] [address] Dr. Ekta Lundberghocytes/100 WBC (Bld)17.3 %Critically low20.5-60.0The [facility] HospitalComment on above:Performed By: #### CBC #### [facility] [address] [place] [address] Dr. Ekta Beckham DIFF REQNONormalThe [facility] HospitalComment on above: Performed By: #### CBC #### [facility] [address] [address] [address] Ekta Oconnor (RBC) [Entitic mass]32.1 tuMtkwlt86.7-34.0The [facility] HospitalComment on above:Performed By: #### CBC #### [facility] [address] [place] [address] Dr. Ekta Oconnor (RBC) [Mass/Vol]34.3 g/qBDgremc65.9-35.2The [facility] HospitalComment on above:Performed By: #### CBC #### [facility] [address] [place] [address] Dr. Ekta Oconnor (RBC) [Entitic vol]93.7 fEWjauoz44.0-99.0The [facility] HospitalComment on above:Performed By: #### CBC #### [facility] [address] [place] [address] Dr. Ekta Rivas #0.6 103/ulNormal0.3-0.8The [facility] HospitalComment on above:Performed By: #### CBC #### [facility] [address] [place] [address] Dr. Ekta Perkinsocytes/100 WBC (Bld)6.4 %Normal1.7-12.0The [facility] Comment on above:Performed By: #### CBC #### [facility] [address] [place] [address] Dr. Ekta Salazar #7.4 103/ulCritically high1.4-6.5The [facility] Comment on above:Performed By: #### CBC #### [facility] [address] [place] [address] Dr. Ekta Sheldonutrophils/100 WBC (Bld)74.4 %Vrvvqq20.0-75.0The [facility] HospitalComment on above:Performed By: #### CBC #### [facility] [address] [place] [address] Dr. Ekta Trevino mean volume (Bld) [Entitic vol]9.8 fLNormal9.5-13.5The [facility] HospitalComment on above:Performed By: #### CBC #### [facility] [address] [place] [address] Dr. Ekta FunkPLT193 103/seWkdjvk908-185Rjp [facility] HospitalComment on above: Performed By: #### CBC #### [facility] [address] [place] [address] Dr. Ekta FunkRBC4.14 106/ulCritically low4.20-5.40The [facility] HospitalComment on above:Performed By: #### CBC #### [facility] [address] [place] [address] Dr. Ekta FunkWBC9.9 103/ulNormal4.0-11.0The [facility] HospitalComment on above: Performed By: #### CBC #### [facility] [address] [address] [address] Ekta Pal 14(COMP METB)on 78-17-8018Mckjebr [Mass/Vol]3.2 g/dL Critically low3.4-5.0The [facility] HospitalComment on above:Performed By: #### INSULIN #### [facility] [address] [address] [address] Ekta FunkAlbumin/Globulin [Mass ratio]0.8 {ratio}NormalThe [facility] HospitalComment on above:Performed By: #### INSULIN #### [facility] [address] [place] [address] Dr. Ekta Cowart [Catalytic activity/Vol]82 U/PSaurjl96-885Eyh [facility] HospitalComment on above:Performed By: #### INSULIN #### [facility] [address] [place] [address] Dr. Ekta Mccormick [Catalytic activity/Vol]38 U/JWrkfjv10-57Cln [facility] HospitalComment on above:Performed By: #### INSULIN #### [facility] [address] [place] [address] Dr. Ekta Harrison gap [Moles/Vol]19.1 mmol/LNormalThe [facility] Comment on above:Performed By: #### INSULIN #### [facility] [address] [place] [address] Dr. Ekta Gonzalez [Catalytic activity/Vol]19 U/BKbjyds01-13Vsn [facility] Campusment on above:Performed By: #### INSULIN #### [facility] [address] [place] [address] Dr. Ekta FunkBilirubin [Mass/Vol]0.4 mg/dLNormal0.2-1.0The [facility] Comment on above:Performed By: #### INSULIN #### [facility] [address] [place] [address] Dr. Ekta FunkCalcium [Mass/Vol]9.2 mg/dLNormal8.5-10.1The [facility] Comment on above:Performed By: #### INSULIN #### [facility] [address] [address] [address] Ekta FunkChloride [Moles/Vol]98 mmol/VEdkqya96-584Pky [facility] Comment on above:Performed By: #### INSULIN #### [facility] [address] [address] [address] Ekta FunkCO2 [Moles/Vol]26.4 mmol/TGdzrlv51.0-32.0The [facility] Comment on above:Performed By: #### INSULIN #### [facility] [address] [place] [address] Dr. Ekta FunkCreatinine [Mass/Vol]2.20 mg/dLCritically high0.55-1.02[facility] CenterComment on above:Performed By: #### INSULIN #### [facility] [address] [place] [address] Dr. Ekta AbebeGFR-AF RZJELKXN91 mL/min/1.18l5Bqhwwdmexq low>=60The [facility] HospitalComment on above:Performed By: #### INSULIN #### [facility] [address] [place] [address] Dr. Ekta Ro-NON AF RAFIGDWL54 mL/min/1.45o9Znjdglgimh low>=60The [facility] HospitalComment on above:Performed By: #### INSULIN #### [facility] [address] [address] [address] Ekta FunkGlobulin (S) [Mass/Vol]3.8 g/dLNormalThe [facility] HospitalComment on above:Performed By: #### INSULIN #### [facility] [address] [address] [address] Ekta FunkGlucose [Mass/Vol]142 mg/dLCritically dwhi79-423Xav [facility] HospitalComment on above:Performed By: #### INSULIN #### [facility] [address] [place] [address] Dr. Ekta FunkPotassium [Moles/Vol]4.5 mmol/LNormal3.5-5.1[facility] Comment on above:Performed By: #### INSULIN #### [facility] [address] [address] [address] Ekta FunkProtein [Mass/Vol]7.0 g/dLNormal6.4-8.2[facility] Comment on above:Performed By: #### INSULIN #### [facility] [address] [address] [address] Ekta FunkSodium [Moles/Vol]139 mmol/IElzgcc580-514Agy [facility] Comment on above:Performed By: #### INSULIN #### [facility] [address] [address] [address] Ekta FunkUrea nitrogen [Mass/Vol]57.0 mg/dLCritically high7.0-18.0[facility] CenterComment on above:Performed By: #### INSULIN #### [facility] [address] [address] [address] Ekta Spring nitrogen/Creatinine [Mass ratio]25.9 mg/mgNormMercy Health Clermont HospitalComment on above:Performed By: #### INSULIN #### [facility] [address] [address] [address] Ekta FunkT3, TOTAL (TRIIODOTHYRONINE)on 05-60-3873R3, TOTAL63 ng/dL Critically qhl88-256NgtOhiohealth Nelsonville Health CenterComment on above:Performed By: #### CMP #### [facility] [address] [address] [address] Ekta FunkXR ABD FLAT_UPon [id number] ABD FLAT_UPEXAMINATION: XR ABD FLAT_UP HISTORY: Generalized abdominal pain , shortness of breath COMPARISON: No relevant comparison available. FINDINGS: BOWEL GAS PATTERN: Non-obstructed. FREE AIR: None. CALCIFICATIONS: None significant. BONES: Mild left convex curvature lumbar spine. No appreciable fracture. OTHER: Negative. IMPRESSION: 1. Normal bowel gas pattern. No suspicious abdominal findings. Electronically authenticated by: DANIEL PINEDA Date: 2022-10-21 11:42[facility] CenterXR CHE[facility] 2 Von [id number] CHEST 2 VEXAM: XR CHEST 2 V, 10/21/2022 HISTORY: SHORTNESS [...] Electronically authenticated by: CHRISTIANO MORALES Date: 2022-10-21 11:23[facility] Cancer CenterBNPon [id number] peptide B (Bld) [Mass/Vol]2512.0 pg/mLCritically high<=900.0The [facility] HospitalComment on above:Performed By: #### B12FOL, VITAD, IRON #### [facility] [address] [place] [address] Dr. Ekta Hale BRITTANIE ADMITon [id number] [Catalytic activity/Vol]35 U/L Epcqgo36-609Ndf [facility] HospitalComment on above:Performed By: #### B12FOL, VITAD, IRON #### [facility] [address] [place] [address] Dr. Ekta Howell.MB [Mass/Vol]0.64 ng/mLNormal<=3.60[facility] Comment on above:Performed By: #### B12FOL, VITAD, IRON #### [facility] [address] [place] [address] Dr. Ekta PetersOP28.1 pg/mLNormal4.0-51.3The [facility] HospitalComment on above:Result Comment: CUT-OFF POINTS HAVE BEEN ESTABLISHED BASED ON THE FOURTH UNIVERSAL DEFINITIONS OF MYOCARDIAL INFARCTION. THE UPPER REFERENCE LIMIT (URL) OF TROPONIN, DEFINED THE 99TH PERCENTILE OF cTnI DISTRIBUTION IN A REFERENCE POPULATION, HAS BEEN CONFIRMED THE DECISION THRESHOLD FOR PA DIAGNOSIS.Performed By: #### B12FOL, VITAD, IRON #### [facility] [address] [place] [address] Dr. Ekta CampO57 ng/mLNormal9-82The [facility] HospitalComment on above: Performed By: #### B12FOL, VITAD, IRON #### [facility] [address] [place] [address] Dr. Ekta Agarwal AUTO DIFFon [id number] #0.0 103/ulNormal0.0-0.1The [facility] HospitalComment on above:Performed By: #### CBC #### [facility] [address] [place] [address] Dr. Ekta FunkBasophils/100 WBC (Bld)0.2 %Normal0.2-2.0[facility] Comment on above:Performed By: #### CBC #### [facility] [address] [place] [address] Dr. Ekta Anthony #0.2 103/ulNormal0.0-0.7The [facility] HospitalComment on above: Performed By: #### CBC #### [facility] [address] [place] [address] Dr. Ekta Abebeosinophils/100 WBC (Bld)1.4 %Normal0.9-7.0[facility] Comment on above:Performed By: #### CBC #### [facility] [address] [place] [address] Dr. Ekta Abeberythrocyte distribution width (RBC) [Ratio]12.9 %Rjrtja89.0-15.0 [facility] CenterComment on above:Performed By: #### CBC #### [facility] [address] [place] [address] Dr. Ekta FunkHematocrit (Bld) [Volume fraction]34.7 %Critically low36.0-48.0 [facility] CenterComment on above:Performed By: #### CBC #### [facility] [address] [place] [address] Dr. Ekta FunkHemoglobin (Bld) [Mass/Vol]11.8 g/dLCritically low12.0-16.0The [facility] HospitalComment on above:Performed By: #### CBC #### [facility] [address] [address] [address] Ekta Olivares #0.09 10e3/ulCritically high0.00-0.03The [facility] Comment on above:Performed By: #### CBC #### [facility] [address] [address] [address] Ekta Olivares %0.8 %Critically high0.0-0.5The [facility] HospitalComment on above:Performed By: #### CBC #### [facility] [address] [place] [address] Dr. Ekta Putnam #1.9 103/ulNormal1.2-3.8The [facility] HospitalComment on above:Performed By: #### CBC #### [facility] [address] [place] [address] Dr. Ekta Lundberghocytes/100 WBC (Bld)16.1 %Critically low20.5-60.0The [facility] HospitalComment on above:Performed By: #### CBC #### [facility] [address] [place] [address] Dr. Ekta MaloneUAL DIFF REQNONormalThe [facility] HospitalComment on above: Performed By: #### CBC #### [facility] [address] [place] [address] Dr. Ekta Oconnor (RBC) [Entitic mass]32.6 rxFjwfjo10.7-34.0The [facility] HospitalComment on above:Performed By: #### CBC #### [facility] [address] [place] [address] Dr. Ekta Oconnor (RBC) [Mass/Vol]34.0 g/wDSiebcb72.9-35.2The [facility] HospitalComment on above:Performed By: #### CBC #### [facility] [address] [place] [address] Dr. Ekta Oconnor (RBC) [Entitic vol]95.9 nBMntaew03.0-99.0The [facility] HospitalComment on above:Performed By: #### CBC #### [facility] [address] [place] [address] Dr. Ekta Rivas #0.8 103/ulNormal0.3-0.8The [facility] HospitalComment on above:Performed By: #### CBC #### [facility] [address] [place] [address] Dr. Ekta Perkinsocytes/100 WBC (Bld)7.0 %Normal1.7-12.0The [facility] Comment on above:Performed By: #### CBC #### [facility] [address] [place] [address] Dr. Ekta Salazar #8.8 103/ulCritically high1.4-6.5The [facility] Comment on above:Performed By: #### CBC #### [facility] 01 [place] [address] Dr. Ekta Sheldonutrophils/100 WBC (Bld)74.5 %Iieihm88.0-75.0The [facility] Butler HospitalComment on above:Performed By: #### CBC #### [facility] [address] [place] [address] Dr. Ekta Trevino mean volume (Bld) [Entitic vol]9.8 fLNormal9.5-13.5The [facility] HospitalComment on above:Performed By: #### CBC #### [facility] [address] [place] [address] Dr. Ekta FunkPLT203 103/ktHrzwov848-230Guo [facility] HospitalComment on above: Performed By: #### CBC #### [facility] [address] [place] [address] Dr. Ekta FunkRBC3.62 106/ulCritically low4.20-5.40The [facility] HospitalComment on above:Performed By: #### CBC #### [facility] [address] [place] [address] Dr. Ekta FunkWBC11.8 103/ulCritically high4.0-11.0The [facility] HospitalComment on above:Performed By: #### CBC #### [facility] [address] [place] [address] Dr. Ekta Mueller URINEon 51-86-4810BKLKGCF URINECulture Observations: NO GROWTH.NormalOhiohealth Nelsonville Health CenterComment on above:Performed By: #### INSULIN #### [facility] [address] [address] [address] Ekta FunkCovid-19 PCR (CVDTB)on 59-78-2703YCRO-CoV-2 (COVID-19) RNA GANESH+probe Ql (Unsp spec)Not detectedNormalNOT DETECTEDThe [facility] Comment on above:Result Comment: When diagnostic testing is negative, the [...] for this test is supported by the [employer] Operator of Health and Human Service's declaration [...] which the test may no longer be used).Performed By: #### B12FOL, VITAD, IRON #### [facility] [address] [place] [address] Dr. Dash ChangECHOCARDIO M/2D COMPLETEon [id number] M/2D COMPLETE Patient: SHEILA MAC Exam Date: 10/20/2022 : 1950 Gender:F Ordering : DR KRZYSZTOF THOMPSON . Admission #: [id number] Family : Order #: [id number] CLICK HERE TO VIEW EXAM ECHOCARDIOGRAM REPORT [...] by: Sylwia Mckay M.D. on 10/20/2022 at 14:57[facility] MD, Cancer CenterPROF 14(COMP METB)on 52-83-9706Rmcejpm [Mass/Vol]2.8 g/dLCritically low 3.4-5.0The [facility] HospitalComment on above:Performed By: #### B12FOL, VITAD, IRON #### [facility] [address] [place] [address] Dr. Ekta FunkAlbumin/Globulin [Mass ratio]0.7 {ratio}NormalThe [facility] HospitalComment on above:Performed By: #### B12FOL, VITAD, IRON #### [facility] [address] [place] [address] Dr. Ekta Cowart [Catalytic activity/Vol]84 U/CRsfycf38-097Fty [facility] Campusment on above:Performed By: #### B12FOL, VITAD, IRON #### [facility] [address] [place] [address] Dr. Ekta Mccormick [Catalytic activity/Vol]29 U/ICjavkk10-42Yuc [facility] HospitalComment on above:Performed By: #### B12FOL, VITAD, IRON #### [facility] [address] [place] [address] Dr. Ekta Harrison gap [Moles/Vol]15.9 mmol/LNormalOhiohealth Nelsonville Health Center Comment on above:Performed By: #### B12FOL, VITAD, IRON #### [facility] [address] [address] [address] Ekta FunkAST [Catalytic activity/Vol]15 U/JRhqgiu22-59UotOhiohealth Nelsonville Health CenterComment on above:Performed By: #### B12FOL, VITAD, IRON #### [facility] [address] [address] [address] Ekta FunkBilirubin [Mass/Vol]0.3 mg/dLNormal0.2-1.0[facility] Comment on above:Performed By: #### B12FOL, VITAD, IRON #### [facility] [address] [address] [address] Ekta FunkCalcium [Mass/Vol]8.9 mg/dLNormal8.5-10.1[facility] Comment on above:Performed By: #### B12FOL, VITAD, IRON #### [facility] [address] [address] [address] Ekta FunkChloride [Moles/Vol]103 mmol/UHmweba34-959ZnkOhiohealth Nelsonville Health Center Comment on above:Performed By: #### B12FOL, VITAD, IRON #### [facility] [address] [address] [address] Ekta FunkCO2 [Moles/Vol]26.3 mmol/JJuxcec81.0-32.0[facility] Comment on above:Performed By: #### B12FOL, VITAD, IRON #### [facility] [address] [address] [address] Ekta FunkCreatinine [Mass/Vol]1.99 mg/dLCritically high0.55-1.02[facility] CenterComment on above:Performed By: #### B12FOL, VITAD, IRON #### [facility] [address] [address] [address] Dash ChangEGFR-AF FRVUNMXM74 mL/min/1.40v3Yehnuwwbul low>=60The [facility] HospitalComment on above:Performed By: #### B12FOL, VITAD, IRON #### [facility] [address] [place] [address] Dr. Ekta AbebeGFR-NON AF WHBVPKZL09 mL/min/1.88q5Xdarxjdwqk low>=60The [facility] HospitalComment on above:Performed By: #### B12FOL, VITAD, IRON #### [facility] [address] [address] [address] Ekta FunkGlobulin (S) [Mass/Vol]4.1 g/dLNormalThe [facility] HospitalComment on above:Performed By: #### B12FOL, VITAD, IRON #### [facility] [address] [place] [address] Dr. Ekta FunkGlucose [Mass/Vol]115 mg/dLCritically mnzt87-811Jqf [facility] HospitalComment on above:Performed By: #### B12FOL, VITAD, IRON #### [facility] [address] [place] [address] Dr. Ekta FunkPotassium [Moles/Vol]5.2 mmol/LCritically high3.5-5.1The [facility] Campusment on above:Performed By: #### B12FOL, VITAD, IRON #### [facility] [address] [place] [address] Dr. Ekta FunkProtein [Mass/Vol]6.9 g/dLNormal6.4-8.2The [facility] Comment on above:Performed By: #### B12FOL, VITAD, IRON #### [facility] [address] [place] [address] Dr. Ekta FunkSodium [Moles/Vol]140 mmol/SFfmmxv568-223Cqq [facility] Comment on above:Performed By: #### B12FOL, VITAD, IRON #### [facility] [address] [place] [address] Dr. Ekta FunkUrea nitrogen [Mass/Vol]45.0 mg/dLCritically high7.0-18.0The [facility] Campusment on above:Performed By: #### B12FOL, VITAD, IRON #### [facility] [address] [place] [address] Dr. Ekta Spring nitrogen/Creatinine [Mass ratio]22.6 mg/mgNormalThe [facility] HospitalComment on above:Performed By: #### B12FOL, VITAD, IRON #### [facility] [address] [place] [address] Dr. Ekta Cloud4on 74-52-9242P2 [Mass/Vol]6.10 ug/dLNormal4.80-13.90The [facility] Campusment on above:Performed By: #### B12FOL, VITAD, IRON #### [facility] [address] [place] [address] Dr. Ekta Carmona 80-78-0010XVF5.336 uIU/mLNormal0.358-3.740The [facility] Campusment on above:Performed By: #### B12FOL, VITAD, IRON #### [facility] [address] [place] [address] Dr. Ekta Camejo RANDOM W/MICROSCOPICon 72-12-2355VAVBVHIJYWHNWIvdevsaiCJLU SEENOhiohealth Nelsonville Health CenterComment on above:Performed By: #### B12FOL, VITAD, IRON #### [facility] [address] [place] [address] Dr. Ekta Emeryirubin Ql (U)NegativeNormalNEGATIVEThe [facility] Comment on above:Performed By: #### B12FOL, VITAD, IRON #### [facility] [address] [place] [address] Dr. Ekta FunkCASTJAMIE SEENNormalNONE SEENOhiohealth Nelsonville Health CenterComment on above:Performed By: #### B12FOL, VITAD, IRON #### [facility] [address] [place] [address] Dr. Ekta Menesesarity (U)CLEARNormalCLEARThe [facility] HospitalComment on above: Performed By: #### B12FOL, VITAD, IRON #### [facility] [address] [address] [address] Ekta Boothe (U)LT. YELLOWNormalYELLOWOhiohealth Nelsonville Health CenterComment on above:Performed By: #### B12FOL, VITAD, IRON #### [facility] [address] [address] [address] Ekta FunkCrystals LM Nom (Urine sed)NONE SEENNormalNONE SEENOhiohealth Nelsonville Health CenterComment on above:Performed By: #### B12FOL, VITAD, IRON #### [facility] [address] [address] [address] Ekta Abebepithelial cells LM Ql (Urine sed)RARENormalNONE SEEN /RAREOhiohealth Nelsonville Health CenterComfresenius medical [facility] at [facility] on above:Performed By: #### B12FOL, VITAD, IRON #### [facility] [address] [place] [address] Dr. Ekta FunkGlucose Ql (U)NegativeNormalNEGATIVEOhiohealth Nelsonville Health CenterComment on above:Performed By: #### B12FOL, VITAD, IRON #### [facility] [address] [address] [address] Ekta FunkHemoglobin Ql (U)NegativeNormalNEGATIVEToledo Hospital on above:Performed By: #### B12FOL, VITAD, IRON #### [facility] [address] [address] [address] Ekta FunkKetones Ql (U)NegativeNormalNEGATIVEOhiohealth Nelsonville Health CenterComment on above:Performed By: #### B12FOL, VITAD, IRON #### [facility] [address] [address] [address] Ekta FunkLEUKOCYTESNegativeNormalNEGATIVEOhiohealth Nelsonville Health CenterComfresenius medical [facility] at [facility] on above:Performed By: #### B12FOL, VITAD, IRON #### [facility] [address] [address] [address] Ekta FunkMUCOUSNONE SEENNormalNONE SEENOhiohealth Nelsonville Health CenterComment on above:Performed By: #### B12FOL, VITAD, IRON #### [facility] [address] [address] [address] Ekta Long Ql (U)NegativeNormalNEGATIVEThe [facility] HospitalComment on above:Performed By: #### B12FOL, VITAD, IRON #### [facility] [address] [address] [address] Ekta FunkpH (U)6.0 [pH]Normal5-9The [facility] HospitalComment on above: Performed By: #### B12FOL, VITAD, IRON #### [facility] [address] [place] [address] Dr. Ekta FunkTismqBXK5-8Ufpoyc0-5Aau [facility] HospitalComment on above:Performed By: #### B12FOL, VITAD, IRON #### [facility] [address] [place] [address] Dr. Ekta FunkSPEC GRAVITY<=1.456Yiyxxuvi6.005-<=1.025The [facility] Comment on above:Performed By: #### B12FOL, VITAD, IRON #### [facility] [address] [place] [address] Dr. Ekta Camejo PROTEINNegativeNormalNEGATIVE/ TRACEThe [facility] Comment on above:Performed By: #### B12FOL, VITAD, IRON #### [facility] [address] [place] [address] Dr. Ekta Lugo Qn (U)0.2 {Ivan'U}/dLNormal0.2 - 1.0The [facility] HospitalComment on above:Performed By: #### B12FOL, VITAD, IRON #### [facility] [address] [place] [address] Dr. Ekta LeonardoBCNONEkta SEENNormalNONE SEENThe [facility] HospitalComment on above: Performed By: #### B12FOL, VITAD, IRON #### [facility] [address] [place] [address] Dr. Ekta Vaughan 85-69-9329Yqduztgxibc peptide B (Bld) [Mass/Vol]1355.0 pg/mLCritically high<=900.0The [facility] HospitalComment on above:Performed By: #### B12FOL, VITAD, IRON #### [facility] [address] [place] [address] Dr. Ekta FunkINSULINon 28-31-9598Ufzjoel75.4 uIU/mLNormal2.6-24.9The [facility] HospitalComment on above:Performed By: #### INSULIN #### [facility] [address] [place] [address] Dr. Ekta FunkOCC BLD IMMUNO SCREENon 93-74-9997CKTQDO BLOODPositiveAbnormal NEGATIVEThe [facility] HospitalComment on above:Performed By: #### B12FOL, VITAD, IRON #### [facility] [address] [place] [address] Dr. Ekta FunkPROF CHEM 8 (BAS METB)on 63-32-9473Wvoug gap [Moles/Vol]15.8 mmol/LNormalThe [facility] HospitalComment on above:Performed By: #### B12FOL, VITAD, IRON #### [facility] [address] [place] [address] Dr. Ekta FunkCalcium [Mass/Vol]8.8 mg/dLNormal8.5-10.1[facility] Comment on above:Performed By: #### B12FOL, VITAD, IRON #### [facility] [address] [place] [address] Dr. Ekta FunkChloride [Moles/Vol]107 mmol/NWemgux51-926Gtc [facility] Comment on above:Performed By: #### B12FOL, VITAD, IRON #### [facility] [address] [place] [address] Dr. Ekta FunkCO2 [Moles/Vol]21.5 mmol/NLjevrl74.0-32.0The [facility] Comment on above:Performed By: #### B12FOL, VITAD, IRON #### [facility] [address] [place] [address] Dr. Ekta FunkCreatinine [Mass/Vol]1.62 mg/dLCritically high0.55-1.02The [facility] HospitalComment on above:Performed By: #### B12FOL, VITAD, IRON #### [facility] [address] [address] [address] Dash ChangEGFR-AF NAOYFUBQ56 mL/min/1.94h9Rybzspwmrr low>=60The [facility] HospitalComment on above:Performed By: #### B12FOL, VITAD, IRON #### [facility] [address] [address] [address] Dash ChangEGFR-NON AF ACFNZQKJ90 mL/min/1.60e4Zyqaxgcthb low>=60The [facility] HospitalComment on above:Performed By: #### B12FOL, VITAD, IRON #### [facility] [address] [address] [address] Ekta FunkGlucose [Mass/Vol]134 mg/dLCritically epva32-411Bvr [facility] HospitalComment on above:Performed By: #### B12FOL, VITAD, IRON #### [facility] [address] [address] [address] Ekta FunkPotassium [Moles/Vol]5.3 mmol/LCritically high3.5-5.1The [facility] HospitalComment on above:Performed By: #### B12FOL, VITAD, IRON #### [facility] [address] [address] [address] Ekta FunkSodium [Moles/Vol]139 mmol/ZUkyagt396-423Igm [facility] Comment on above:Performed By: #### B12FOL, VITAD, IRON #### [facility] [address] [address] [address] Ekta FunkUrea nitrogen [Mass/Vol]37.0 mg/dLCritically high7.0-18.0The [facility] HospitalComment on above:Performed By: #### B12FOL, VITAD, IRON #### [facility] [address] [place] [address] Dr. Ekta Spring nitrogen/Creatinine [Mass ratio]22.8 mg/mgNormalThe [facility] HospitalComment on above:Performed By: #### B12CAROLYN SNOWDEN IRON #### [facility] [address] [place] [address] Dr. Ekta Rich, HIGH SENSITIVITYon 06-15-9925LJVXPP95.2 pg/mLCritically high4.0-51.3TCincinnati Children's Hospital Medical CenterComment on above:Result Comment: CUT-OFF POINTS HAVE BEEN ESTABLISHED BASED ON THE FOURTH UNIVERSAL DEFINITIONS OF MYOCARDIAL INFARCTION. THE UPPER REFERENCE LIMIT (URL) OF TROPONIN, DEFINED THE 99TH PERCENTILE OF cTnI DISTRIBUTION IN A REFERENCE POPULATION, HAS BEEN CONFIRMED THE DECISION THRESHOLD FOR PA DIAGNOSIS.Performed By: #### B12CAROLYN SNOWDEN IRON #### [facility] [address] [place] [address] Dr. Ekta Vaughan 78-97-3007Dattudqxptk peptide B (Bld) [Mass/Vol]1386.0 pg/mLCritically high<=900.0[facility] CenterComment on above:Performed By: #### CVDTBH #### [facility] [address] [place] [address] Dr. Ekta Hale BRITTANIE ADMITon 70-72-3396PE [Catalytic activity/Vol]34 U/L Ogtasr31-358XyvMercy Health – The Jewish [facility] on above:Performed By: #### CVDTBH #### [facility] [address] [place] [address] Dr. Ekta Howell.MB [Mass/Vol]1.43 ng/mLNormal<=3.60[facility] Comment on above:Performed By: #### CVDTBH #### [facility] [address] [place] [address] Dr. Ekta PetersOP74.1 pg/mLCritically high4.0-51.3TCincinnati Children's Hospital [facility] Center Comment on above:Result Comment: CUT-OFF POINTS HAVE BEEN ESTABLISHED BASED ON THE FOURTH UNIVERSAL DEFINITIONS OF MYOCARDIAL INFARCTION. THE UPPER REFERENCE LIMIT (URL) OF TROPONIN, DEFINED THE 99TH PERCENTILE OF cTnI DISTRIBUTION IN A REFERENCE POPULATION, HAS BEEN CONFIRMED THE DECISION THRESHOLD FOR PA DIAGNOSIS.Performed By: #### CVDTBH #### [facility] [address] [address] [address] Ekta FunkMYO52 ng/mLNormal9-82[facility] CenterComment on above: Performed By: #### CVDTBH #### [facility] [address] [address] [address] Ekta Agarwal AUTO DIFFon 57-44-4772FVEV #0.0 103/ulNormal0.0-0.1The [facility] HospitalComment on above:Performed By: #### CBC #### [facility] [address] [place] [address] Dr. Ekta FunkBasophils/100 WBC (Bld)0.3 %Normal0.2-2.0[facility] Comment on above:Performed By: #### CBC #### [facility] [address] [place] [address] Dr. Ekta Anthony #0.1 103/ulNormal0.0-0.7The [facility] HospitalComment on above: Performed By: #### CBC #### [facility] [address] [place] [address] Dr. Ekta Abebeosinophils/100 WBC (Bld)0.9 %Normal0.9-7.0[facility] Comment on above:Performed By: #### CBC #### [facility] [address] [place] [address] Dr. Ekta Abeberythrocyte distribution width (RBC) [Ratio]13.2 %Pnctfp47.0-15.0 [facility] CenterComment on above:Performed By: #### CBC #### [facility] [address] [place] [address] Dr. Ekta FunkHematocrit (Bld) [Volume fraction]38.9 %Kctdcy39.0-48.0[facility] Hospitalment on above:Performed By: #### CBC #### [facility] [address] [place] [address] Dr. Ekta FunkHemoglobin (Bld) [Mass/Vol]12.4 g/mDVqljlw26.0-16.0The [facility] HospitalComment on above:Performed By: #### CBC #### [facility] [address] [place] [address] Dr. Ekta Olivares #0.08 10e3/ulCritically high0.00-0.03The [facility] Comment on above:Performed By: #### CBC #### [facility] [address] [place] [address] Dr. Ekta Olivares %0.5 %Normal0.0-0.5The [facility] HospitalComment on above: Performed By: #### CBC #### [facility] [address] [place] [address] Dr. Ekta Putnam #1.4 103/ulNormal1.2-3.8The [facility] HospitalComment on above:Performed By: #### CBC #### [facility] [address] [place] [address] Dr. Ekta Lundberghocytes/100 WBC (Bld)9.6 %Critically low20.5-60.0The [facility] HospitalComment on above:Performed By: #### CBC #### [facility] [address] [place] [address] Dr. Ekta Beckham DIFF REQNONormalThe [facility] HospitalComment on above: Performed By: #### CBC #### [facility] [address] [place] [address] Dr. Ekta Oconnor (RBC) [Entitic mass]32.3 gjGauezp23.7-34.0The [facility] HospitalComment on above:Performed By: #### CBC #### [facility] [address] [place] [address] Dr. Ekta Oconnor (RBC) [Mass/Vol]31.9 g/qKEdohjr19.9-35.2The [facility] HospitalComment on above:Performed By: #### CBC #### [facility] [address] [place] [address] Dr. Ekta Oconnor (RBC) [Entitic vol]101.3 fLCritically high81.0-99.0The [facility] HospitalComment on above:Performed By: #### CBC #### [facility] [address] [place] [address] Dr. Ekta Rivas #0.9 103/ulCritically high0.3-0.8The [facility] Comment on above:Performed By: #### CBC #### [facility] [address] [place] [address] Dr. Ekta Perkinsocytes/100 WBC (Bld)6.3 %Normal1.7-12.0[facility] Comment on above:Performed By: #### CBC #### [facility] [address] [place] [address] Dr. Ekta Salazar #12.0 103/ulCritically high1.4-6.5The [facility] Comment on above:Performed By: #### CBC #### [facility] [address] [place] [address] Dr. Ekta Sheldonutrophils/100 WBC (Bld)82.4 %Critically high43.0-75.0The [facility] HospitalComment on above:Performed By: #### CBC #### [facility] [address] [place] [address] Dr. Ekta Trevino mean volume (Bld) [Entitic vol]9.7 fLNormal9.5-13.5The [facility] HospitalComment on above:Performed By: #### CBC #### [facility] [address] [place] [address] Dr. Ekta FunkPLT176 103/xnDqunje569-713Maw [facility] HospitalComment on above: Performed By: #### CBC #### [facility] [address] [place] [address] Dr. Ekta FunkRBC3.84 106/ulCritically low4.20-5.40The [facility] HospitalComment on above:Performed By: #### CBC #### [facility] [address] [place] [address] Dr. Ekta FunkWBC14.6 103/ulCritically high4.0-11.0The [facility] HospitalComment on above:Performed By: #### CBC #### [facility] [address] [address] [address] Ekta Correa THYROXINE INDEX T7on 14-04-1014VJM7.89Jiqdft0.30-4.50The [facility] HospitalComment on above:Performed By: #### CVDTBH #### [facility] [address] [address] [address] Ekta FunkT3U36.0 %Ngmsbc10.0-39.0The [facility] HospitalComment on above: Performed By: #### CVDTBH #### [facility] [address] [place] [address] Dr. Ekta FunkT4 [Mass/Vol]6.50 ug/dLNormal4.80-13.90The [facility] Comment on above:Performed By: #### CVDTBH #### [facility] [address] [address] [address] Ekta FunkGLYCOHEMOGLOBIN A1Con 94-19-4473WML RECOMMENDATIONSEE BELOWNormal The [facility] HospitalComment on above:Result Comment: ADA RECOMMENDED LIMIT 4.0 - 6.0 ADA THERAPEUTIC TARGET < 7.0 ACTION SUGGESTED > 7.0Performed By: #### B12FOL, VITAD, IRON #### [facility] [address] [place] [address] Dr. Ekta FunkGlucose [Mass/Vol]140 mg/dLNormalThe [facility] HospitalComment on above:Performed By: #### B12FOL, VITAD, IRON #### [facility] [address] [address] [address] Ekta FunkHbA1c (Bld) [Mass fraction]6.5 %Critically high4.5-6.2The [facility] HospitalComment on above:Performed By: #### B12FOL, VITAD, IRON #### [facility] [address] [place] [address] Dr. Ekta Shannon 59-09-7088Luuu [Mass/Vol]62.0 ug/iDIwzygy62.0-170.0The [facility] HospitalComment on above:Performed By: #### B12FOL, VITAD, IRON #### [facility] [address] [place] [address] Dr. Ekta FunkLIPID PROFILEon 30-55-3967CBVI-HDL RATIO NORMSEE BELOWOhioHealth Arthur G.H. Bing, MD, Cancer CenterComment on above:Result Comment: 3.3 - 4.4 LOW RISK 4.4 - 7.1 AVERAGE RISK 7.1 - 11.0 MODERATE RISK >11.0 HIGH RISKPerformed By: #### CVDTBH #### [facility] [address] [place] [address] Dr. Ekta FunkCholesterol [Mass/Vol]242 mg/dLCritically high<=200The [facility] HospitalComment on above:Performed By: #### CVDTBH #### [facility] [address] [place] [address] Dr. Ekta FunkCholesterol in HDL [Mass/Vol]74 mg/dLCritically kyct41-27Oiy [facility] HospitalComment on above:Performed By: #### CVDTBH #### [facility] [address] [place] [address] Dr. Ekta FunkCholesterol in LDL [Mass/Vol]139.4 mg/dLOhioHealth Arthur G.H. Bing, MD, Cancer CenterComfresenius [facility] at [facility] on above:Performed By: #### CVDTBH #### [facility] [address] [place] [address] Dr. Ekta Tejedaestertracy.total/Cholesterol in HDL [Mass ratio]3.3 {ratio} NormalOhiohealth Nelsonville Health CenterComfresenius medical [facility] at [facility] on above:Performed By: #### CVDTBH #### [facility] [address] [place] [address] Dr. Ekta Uriarte NORMAL> or = 60 mg/dl - LOW CARDIOVASCULAR RISK <40 mg/dl - HIGH CARDIOVASCULAR RISKOhioHealth Arthur G.H. Bing, MD, Cancer CenterComment on above:Performed By: #### CVDTBH #### [facility] [address] [place] [address] Dr. Ekta FunkLDL CALC NORMALSEE BELOWNormMercy Health Clermont HospitalComment on above:Result Comment: <100 mg/dl OPTIMAL 100 - 129 mg/dl NEAR OR ABOVE OPTIMAL 130 - 159 mg/dl BORDERLINE HIGH 160 - 189 mg/dl HIGH >190 mg/dl VERY HIGH Performed By: #### CVDTBH #### [facility] [address] [place] [address] Dr. Ekta FunkTriglyceride [Mass/Vol]143 mg/dLNormal<=150The [facility] Comment on above:Performed By: #### CVDTBH #### [facility] [address] [place] [address] Dr. Ekta FunkVLDL CALC28.6 mg/dLNoToledo HospitalComment on above: Performed By: #### CVDTBH #### [facility] [address] [place] [address] Dr. Ekta FunkPROF 14(COMP METB)on 51-87-7767Ouwhitx [Mass/Vol]2.8 g/dL Critically low3.4-5.0Ohio[facility] Nelsonville Health CenterComment on above:Performed By: #### CVDTBH #### [facility] [address] [place] [address] Dr. Ekta FunkAlbumin/Globulin [Mass ratio]0.7 {ratio}NormalThe [facility] HospitalComment on above:Performed By: #### CVDTBH #### [facility] [address] [address] [address] Ekta Cowart [Catalytic activity/Vol]90 U/EYojtcv80-984Xzq [facility] HospitalComment on above:Performed By: #### CVDTBH #### [facility] [address] [address] [address] Ekta Mccormick [Catalytic activity/Vol]26 U/XVguzok53-03Pbx [facility] HospitalComment on above:Performed By: #### CVDTBH #### [facility] [address] [place] [address] Dr. Ekta Harrison gap [Moles/Vol]14.5 mmol/LNormalThe [facility] Comment on above:Performed By: #### CVDTBH #### [facility] [address] [address] [address] Ekta FunkAST [Catalytic activity/Vol]14 U/LCritically ata52-69Lsr [facility] HospitalComment on above:Performed By: #### CVDTBH #### [facility] [address] [address] [address] Ekta FunkBilirubin [Mass/Vol]0.4 mg/dLNormal0.2-1.0The [facility] Comment on above:Performed By: #### CVDTBH #### [facility] [address] [address] [address] Ekta FunkCalcium [Mass/Vol]8.9 mg/dLNormal8.5-10.1[facility] Comment on above:Performed By: #### CVDTBH #### [facility] [address] [address] [address] Ekta FunkChloride [Moles/Vol]106 mmol/UAwtako83-778Iya [facility] Comment on above:Performed By: #### CVDTBH #### [facility] [address] [place] [address] Dr. Ekta FunkCO2 [Moles/Vol]23.5 mmol/XZowztb29.0-32.0[facility] Comment on above:Performed By: #### CVDTBH #### [facility] [address] [address] [address] Ekta FunkCreatinine [Mass/Vol]1.70 mg/dLCritically high0.55-1.02The [facility] HospitalComment on above:Performed By: #### CVDTBH #### [facility] [address] [address] [address] Dash ChangEGFR-AF ZQKZOBNT93 mL/min/1.15p2Hlhnobuurd low>=60The [facility] HospitalComment on above:Performed By: #### CVDTBH #### [facility] [address] [address] [address] Ekta AbebeGFR-NON AF SLGCAGTF12 mL/min/1.15m3Qddfzkmdgs low>=60The [facility] HospitalComment on above:Performed By: #### CVDTBH #### [facility] [address] [place] [address] Dr. Ekta FunkGlobulin (S) [Mass/Vol]4.0 g/dLNormalThBlanchard Valley Health System Blanchard Valley HospitalComment on above:Performed By: #### CVDTBH #### [facility] [address] [place] [address] Dr. Ekta FunkGlucose [Mass/Vol]99 mg/rKPuuqxa31-213Dxd [facility] Comment on above:Performed By: #### CVDTBH #### [facility] [address] [place] [address] Dr. Ekta FunkPotassium [Moles/Vol]5.0 mmol/LNormal3.5-5.1[facility] Comment on above:Performed By: #### CVDTBH #### [facility] [address] [place] [address] Dr. Ekta FunkProtein [Mass/Vol]6.8 g/dLNormal6.4-8.2[facility] Comment on above:Performed By: #### CVDTBH #### [facility] [address] [place] [address] Dr. Ekta FunkSodium [Moles/Vol]139 mmol/LUwrrxv870-312ZjwOhiohealth Nelsonville Health Center Comment on above:Performed By: #### CVDTBH #### [facility] [address] [place] [address] Dr. Ekat FunkUrea nitrogen [Mass/Vol]36.0 mg/dLCritically high7.0-18.0The [facility] HospitalComment on above:Performed By: #### CVDTBH #### [facility] [address] [place] [address] Dr. Ekta Spring nitrogen/Creatinine [Mass ratio]21.2 mg/mgNormalThBlanchard Valley Health System Blanchard Valley HospitalComment on above:Performed By: #### CVDTBH #### [facility] [address] [place] [address] Dr. Ekta Carmona 39-62-8644WMW9.910 uIU/mLNormal0.358-3.740The [facility] on above:Performed By: #### CVDTB #### [facility] [address] [place] [address] Dr. Ekta FunkCovid-19 PCR ([facility])on 24-10-1892JETD-CoV-2 (COVID-19) RNA GANESH+probe Ql (Unsp spec)DetectedAbnormalNOT DETECTEDThe [facility] on above:Result Comment: This test is not yet approved or cleared by the [place] FDA. When there are no FDA-approved or cleared tests available, and other criteria are met, FDA can make tests available under an emergency access mechanism called an Emergency Use Authorization (EUA). The EUA for this test is supported by the [place] of Health and Human Service's declaration that circumstances exist to justify the emergency use of in vitro diagnostics for the detection and/or diagnosis of the virusthat causes COVID-19. This EUA will remain in effect for the duration of the COVID-19 declaration justifying emergency of IVDs, unless it is terminated or revoked by the FDA (after which the test mayno longer be used).Performed By: #### CMP #### [facility] [address] [place] [address] Dr. Ekta FunkINFLNGHIANZA A AND B AGon [id number] Health System on above:Result Comment: Negative for Flu A protein angiten. Infection due to Flu A cannot be ruled out. FluA angiten in the sample may be below the detection limit of the test.Performed By: #### B12FOL, VITAD, IRON #### [facility] [address] [place] [address] Dr. Ekta FunkINFLUBNEGHSEE [facility] on above: Result Comment: Negative for Flu B protein antigen. Infection due to Flu B cannot be ruled out. FluB antigen in the sample may be below the detection limit of the test.Performed By: #### B12FOL, VITAD, IRON #### [facility] [address] [address] [address] Ekta Arguelles AGNegativeNormalNEGATIVE SEE COMMENTThe [facility] HospitalComment on above:Performed By: #### B12FOL, VITAD, IRON #### [facility] [address] [address] [address] Ekta Rojas AGNegativeNormalNEGATIVE SEE COMMENTThe [facility] HospitalComment on above:Performed By: #### B12FOL, VITAD, IRON #### [facility] [address] [address] [address] Ekta Woody CAROTID ART BILon [id number] CAROTID ART BILEXAMINATION: US CAROTID ART ANGELIQUE HISTORY: Dysarthria COMPARISON: [...] Electronically authenticated by: GODWIN BECK Date: 2022-05-26 16:06[facility] MD, Cancer CenterMRI BRAIN WO CONon [id number] BRAIN WO CONEXAMINATION: MRI BRAIN WO CON, 05/25/2022 8:27 AM [...] Electronically authenticated by: DANIEL PINEDA Date: 2022-05-25 10:[address] [place], [place] [address]ECHOCARDIO M/2D COMPLETEon 42-72-6770QOCWPVINID M/2D COMPLETE Patient: SHEILA MAC Exam Date: 05/24/2022 : 1950 Gender:F Ordering : DR KRZYSZTOF THOMPSON . Admission #: [id number] Family : Order #: [id number] CLICK HERE TO VIEW EXAM ECHOCARDIOGRAM REPORT [...] M.D. on 05/24/2022 at 14:34 Approved by: Sywlia Mckay M.D. on 05/24/2022 at 14:45[facility] METABOLIC PANELon 27-94-9254Jqhgjwh mass conc9.4 mg/dLNormal 8.6-10.3The [facility]riners HospitalComment on above:Order Comment: No: Do not add to previous drawPerformed By: #### [id number] #### [facility] [address] [place] [address], [facility] CENTERChloride molar lyak289 mmol/TLkup94-344Efg [facility] HospitalComment on above:Order Comment: No: Do not add to previous drawPerformed By: #### [id number] #### [facility] [address] [place] [address], [place]AC[place]2 molar conc22 mmol/WLsculk66-45Bwj [facility] HospitalComment on above:Order Comment: No: Do not add to previous draw Performed By: #### [id number] #### [facility] [address] [place] [address], USACreatinine mass conc1.18 mg/dLNormal0.60-1.20The [facility] HospitalComment on above:Order Comment: No: Do not add to previous drawPerformed By: #### [id number] #### [facility] [address] [place] [address], USAGFR/1.73 sq M predicted among blacks MDRD vol rate/area (S/P/Bld)55 ml/min/1.73sq mAbnormal>60The [facility] Comment on above:Order Comment: No: Do not add to previous drawPerformed By: #### [id number] #### [facility] [address] [place] [address], USAGFR/1.73 sq M predicted among non-blacks MDRD vol rate/area (S/P/Bld)45 ml/min/1.73sq mAbnormal>60The [facility] Comment on above:Order Comment: No: Do not add to previous drawPerformed By: #### [id number] #### [facility] [address] [place] [address], USAGlucose mass plkk003 mg/oXJxwa46-462Who [facility] HospitalComment on above:Order Comment: No: Do not add to previous drawPerformed By: #### [id number] #### [facility] [address] [place] [address], USAPotassium molar conc4.1 mmol/LNormal3.5-5.1The [facility] HospitalComment on above:Order Comment: No: Do not add to previous drawPerformed By: #### [id number] #### [facility] [address] [place] [address], USASodium molar qppc583 mmol/MHgfhcx531-834Siy [facility] HospitalComment on above:Order Comment: No: Do not add to previous drawPerformed By: #### [id number] #### [facility] [address] [place] [address], USAUrea nitrogen mass conc21 mg/dLNormal7-25The [facility] HospitalComment on above:Order Comment: No: Do not add to previous drawPerformed By: #### [id number] #### [facility] [address] [place] [place] [address], USACBC COMPLETE BLOOD COUNTon 06-16-3365Wqqwqgbmpgk distribution width Ratio (RBC)12.9 %Yqfutt48.5-15.0The [facility]ers HospitalComment on above:Order Comment: No: Do not add to previous draw Performed By: #### [id number] #### [facility] [address] [place] [address], USAHematocrit Volume Fraction (Bld)36.7 %Vdsawc51.0-45.0The [facility] HospitalComment on above:Order Comment: No: Do not add to previous drawPerformed By: #### [id number] #### [facility] [address] [place] [address], USAHemoglobin mass conc (Bld)12.4 g/bIEqmdua36.0-15.0The [facility] HospitalComment on above:Order Comment: No: Do not add to previous drawPerformed By: #### [id number] #### [facility] [address] [place] [address], [facility] CENTERMCH Entitic mass (RBC)31.2 isHubdvp02.0-33.0The [facility] HospitalComment on above:Order Comment: No: Do not add to previous drawPerformed By: #### [id number] #### [facility] [address] [place] [address], [facility] MARIETTAHC mass conc (RBC)33.8 g/oQQqrpuy42.0-35.0The [facility] HospitalComment on above:Order Comment: No: Do not add to previous drawPerformed By: #### [id number] #### [facility] [address] [place] [address], [facility] MARIETTAV Entitic volume (RBC)92.4 lELfhfpm66.0-98.0The [facility] HospitalComment on above:Order Comment: No: Do not add to previous drawPerformed By: #### [id number] #### [facility] [address] [place] [address], [facility] CENTERNucleated RBC/100 WBC Ratio (Bld)0 %Normal0-0The [facility] HospitalComment on above:Order Comment: No: Do not add to previous drawPerformed By: #### [id number] #### [facility] [address] [place] [address], [facility] CENTERPLAT FKK784 10*3/dUSolpjh194-145Ggk [facility] HospitalComment on above:Order Comment: No: Do not add to previous draw Performed By: #### [id number] #### [facility] [address] [place] [address], [facility] CENTERRBC #/vol (Bld)3.97 10*6/uLNormal3.80-5.00The [facility] HospitalComment on above:Order Comment: No: Do not add to previous drawPerformed By: #### [id number] #### [facility] [address] [place] [address], [facility] CENTERWBC #/vol (Bld)5.55 10*3/uLNormal4.00-10.60The [facility] HospitalComment on above:Order Comment: No: Do not add to previous drawPerformed By: #### [id number] #### [facility] [address] [place] [address], [facility] CENTERCardiovascular Lab Reporton [id number] Lab ReportUnGenesis Hospital Patient Name: [facility] Rahel Sosa MR #: [id number] Department of Physician: [place] Shellie Gaspar M.D. Division of Service Date: 11/20/2018 Cardiology Birthdate: 1950 Adult Cardiovascular Room #: 3AB [id number] [facility] [address] [place], [place] [address] Cardiovascular Laboratory Report INDICATION: The patient is a 68-year-old woman who was evaluated in Cardiology Clinic because of new onset symptoms of shortness of breath on mild exertion. Her stress test showed evidence of uohpt-wd-vydixcka area of inferoapical ischemia; because of that, she was referred for cardiac catheterization. PROCEDURES: 1. Right heart catheterization. 2. Bilateral selective coronary angiography. 3. Limited right femoral angiography. METHOD: Procedure was explained patient with risks and benefits. She signed informed consent. She was brought to builder's labourer in a fasting state. The right groin area was prepped and draped in usual fashion. Using micropuncture technique, the right common femoral artery was accessed. The inner cannula was advanced. Limited femoral angiography was performed followed by upsizing to a 6-Northern Irish x 11 cm sheath. Access was also obtained using the same technique in the right common femoral vein and a 6-[place] Irish x 11 cm sheath was placed. A 6-Northern Irish Michel catheter was used for right heart catheterization with measurement of pressures and calculation of cardiac output using the estimated Ivory method. Michel catheter was removed. Bilateral selective coronary angiography was then performed using 6-Northern Irish JL4 and JR4 diagnostic catheters. Catheters were [...] Gaspar M.D. Date Trans: 11/20/2018 09:31 A/alvina DN_JN:[id number] cc: Krzysztof Thompson M.D. [address], [facility] [id number] Medical [facility]Health Rehabilitation Hospital - DublinBASIC METABOLIC PANELon 33-19-6969Uzsukhk mass conc9.5 mg/dLNormal8.6-10.3The [facility] HospitalComment on above:Order Comment: No: Do not add to previous drawPerformed By: #### [id number] #### [facility] [address] [place] [address], USAChloride molar rgbp742 mmol/EXjvmwn56-110Lrz [facility] HospitalComment on above:Order Comment: No: Do not add to previous drawPerformed By: #### [id number] #### [facility] [address] [place] [address], [place]2 molar conc24 mmol/JVstjhm24-87Dha [facility] HospitalComment on above:Order Comment: No: Do not add to previous draw Performed By: #### [id number] #### [facility] [address] [place] [address], USACreatinine mass conc1.42 mg/dLHigh0.60-1.20The [facility] HospitalComment on above:Order Comment: No: Do not add to previous drawPerformed By: #### [id number] #### [facility] [address] [place] [address], USAGFR/1.73 sq M predicted among blacks MDRD vol rate/area (S/P/Bld)45 ml/min/1.73sq mAbnormal>60The [facility] Comment on above:Order Comment: No: Do not add to previous drawPerformed By: #### [id number] #### [facility] [address] [place] [address], USAGFR/1.73 sq M predicted among non-blacks MDRD vol rate/area (S/P/Bld)36 ml/min/1.73sq mAbnormal>60The [facility] Comment on above:Order Comment: No: Do not add to previous drawPerformed By: #### [id number] #### [facility] [address] [place] [address], USAGlucose mass conc86 mg/fZEqdfvb36-281Hhd [facility] HospitalComment on above:Order Comment: No: Do not add to previous drawPerformed By: #### [id number] #### [facility] [address] [place] [address], USAPotassium molar conc4.2 mmol/LNormal3.5-5.1The [facility] HospitalComment on above:Order Comment: No: Do not add to previous drawPerformed By: #### [id number] #### [facility] [address] [place] [address], USASodium molar qoue063 mmol/ZIjysrh684-464Nmx [facility] HospitalComment on above:Order Comment: No: Do not add to previous drawPerformed By: #### [id number] #### [facility] [address] [place] [address], USAUrea nitrogen mass conc19 mg/dLNormal7-25The [facility] HospitalComment on above:Order Comment: No: Do not add to previous drawPerformed By: #### [id number] #### [facility] [address] [place] [address], USACBC COMPLETE BLOOD COUNTon 75-80-0500Ojwcjhsqgnu distribution width Ratio (RBC)13.0 %Ortuih24.5-15.0The [facility] HospitalComment on above:Order Comment: No: Do not add to previous draw Performed By: #### [id number] #### [facility] [address] [place] [address], USAHematocrit Volume Fraction (Bld)38.3 %Bxdhgt96.0-45.0The [facility] HospitalComment on above:Order Comment: No: Do not add to previous drawPerformed By: #### [id number] #### [facility] [address] [place] [address], USAHemoglobin mass conc (Bld)12.6 g/eYBppynh07.0-15.0The [facility] HospitalComment on above:Order Comment: No: Do not add to previous drawPerformed By: #### [id number] #### [facility] [address] [place] [address], USAMCH Entitic mass (RBC)31.1 lyCfxdfk61.0-33.0The [facility] HospitalComment on above:Order Comment: No: Do not add to previous drawPerformed By: #### [id number] #### [facility] [address] [place] [address], [facility] MARIETTAHC mass conc (RBC)32.9 g/wWJbxmir33.0-35.0The [facility] HospitalComment on above:Order Comment: No: Do not add to previous drawPerformed By: #### [id number] #### [facility] [address] [place] [id number], [facility] MARIETTAV Entitic volume (RBC)94.6 fGVgbaal84.0-98.0The [facility] HospitalComment on above:Order Comment: No: Do not add to previous drawPerformed By: #### [id number] #### [facility] [address] [place] [address], [facility] CENTERNucleated RBC/100 WBC Ratio (Bld)0 %Normal0-0The [facility] HospitalComment on above:Order Comment: No: Do not add to previous drawPerformed By: #### [id number] #### [facility] [address] [place] [address], [facility] CENTERPLAT TGQ894 10*3/fEPzaknj160-366Oiy [facility] HospitalComment on above:Order Comment: No: Do not add to previous draw Performed By: #### [id number] #### [facility] [address] [place] [address], [facility]ALTH CENTERRBC #/vol (Bld)4.05 10*6/uLNormal3.80-5.00The [facility] HospitalComment on above:Order Comment: No: Do not add to previous drawPerformed By: #### [id number] #### [facility] [address] [place] [id number], [facility] HE[facility] CENTERWBC #/vol (Bld)9.01 10*3/uLNormal4.00-10.60The [facility] HospitalComment on above:Order Comment: No: Do not add to previous drawPerformed By: #### [id number] #### [facility] [address] [place] [address], [facility] CENTERPROTHROMBIN TIMEon 57-31-2288HQA Coag RelTime (PPP)1.07 {INR}Normal0.91-1.16The [facility] HospitalComment on above: Order Comment: No: Do not add to previous drawResult Comment: ACCCP RECOMMENDED INR FOR WARFARIN THERAPY ------- CONDITION INR PROPHYLAXIS OF VENOUS THROMBOSIS 2-3 (HIGH-RISK SURGERY) TREATMENT OF VENOUS THROMBOSIS 2-3 TREATMENT OF PULMONARY EMBOLISM 2-3 PREVENTION OF SYSTEMIC EMBOLISM: 2-3 ACUTE MYOCARDIAL INFARCTION TISSUE HEART VALVES VALVULAR HEART DISEASE ATRIAL FIBRILLATION RECURRENT SYSTEMIC EMBOLISM MECHANICAL HEART VALVE 2.5-3.5 FROM: ORAL ANTICOAGULANTS. MECHANISM OF ACTION, CLINICAL EFFECTIVENESS, AND OPTIMAL THERAPEUTIC RANGE. CHEST 1995;108:231S-246S.Performed By: #### [id number] #### [facility] [address] [place] [address], [facility]ALTH CENTERProthrombin time (PT) Coag time (PPP)13.9 gRucvoj47.3-14.8 The [facility] HospitalComment on above:Order Comment: No: Do not add to previous drawResult Comment: ALL RESULTS MUST BE INTERPRETED WITH RESPECT TO BLOOD DRAWING ARTIFACT OR DILUTION ERROR OF ANTICOAGULANT AT THE TIME OF SAMPLING.Performed By: #### [id number] #### [facility] [facility] [address] [place] [address], [facility] Vital Signs Date TimeVital SignValuePerforming KrqqsfzyqOpfkucnc40-13-3935 10:08-0400Body scopjm041.6 cmKaitlin Macdonald BUTTON SPINDLER-VISION TEACHER Work Phone: [facility]10-14-2025 10:08-0400Body mass index (BMI) [Ratio]20.36 kg/q9GhiumzqKaitlin Macdonald BUTTON SPINDLER-VISION TEACHER Work Phone: [facility]10-14-2025 10:08-0400Body imudsu06.8 kgKaitlin Macdonald BUTTON SPINDLER-VISION TEACHER Work Phone: [facility]10-14-2025 10:08-0400Diastolic blood yzggcpxd23 mm[Hg]Kaitlin Macdonald BUTTON SPINDLER-VISION TEACHER Work Phone: [facility]10-14-2025 10:08-0400Heart rate 66 /minKaitlin Macdonald BUTTON SPINDLER-VISION TEACHER Work Phone: [facility]10-14-2025 10:08-0400Systolic blood adukuvql905 mm[Hg]Kaitlin Macdonald BUTTON SPINDLER-VISION TEACHER Work Phone: [facility]07-17-2025 14:35-0400Body phzvra785.48 cmKrzysztof Thompson MD Work Phone: [phone])963-[address] [place], [place] 1383407-17-2025 14:35-0400 Body mass index (BMI) [Ratio]21.7 kg/k6EzwbtuzKrzysztof Thompson MD Work Phone: 1(963)410-[address] [place], [place] 1383407-17-2025 14:35-0400 Body tytixq80.97 Belinda Thompson MD Work Phone: 1(585)[address]06-12-2025 14:50-0400 Body uymwbh32.2 Belinda Thompson MD Work Phone: 1(598)483-[address] [place], [place] 1383404-17-2025 10:07-0400 Body .6 cmKaitlin Macdonald BUTTON SPINDLER-VISION TEACHER Work Phone: [facility]04-17-2025 10:07-0400Body mass index (BMI) [Ratio]21.7 kg/l7TsbesbuKaitlin Macdonald BUTTON SPINDLER-VISION TEACHER Work Phone: [facility]04-17-2025 10:07-0400Body aejudl67.34 kgKaitlin Macdonald BUTTON SPINDLER-VISION TEACHER Work Phone: [facility]04-17-2025 10:07-0400Diastolic blood wcekssed07 mm[Hg]Kaitlin Macdonald APRN-VISION TEACHER Work Phone: [facility]04-17-2025 10:07-0400Heart rate 89 /minKaitlin Macdonald APRN-VISION TEACHER Work Phone: [facility]04-17-2025 10:07-0400Systolic blood qrevwvzd352 mm[Hg]Kaitlin Macdonald APRN-VISION TEACHER Work Phone: [facility]12-02-2024 14:21-0500Body mass index (BMI) [Ratio]23.52 kg/u3Gutsxrvtpfs Hassett DO Work Phone: [facility] CenterUngrryrjqu95-63-0742 14:21-0500Body hhitre73.24 kgChgregorio Sesay DO Work Phone: [facility] CenterVaofjvmued47-33-3008 14:21-0500Diastolic blood vqjbzrwo32 mm[Hg]Raven Sesay DO Work Phone: [facility] CenterFshcwtxxxn10-[facility] 14:21-0500Heart rate79 /min Christzonia Sesay DO Work Phone: [facility] CenterQlbiaansav41-86-7965 14:21-0046LeU0% (BldA) [Mass fraction]97 %Christopher Shama DO Work Phone: [facility] CenterJrurnqctky20-63-7036 14:21-0500Systolic blood mm[Hg]Marianoer Shama DO Work Phone: [facility] CenterUrvuiiaovq45-98-2426 11:45-0500Body njgxob752.[address]11-12-2024 11:45-0500Body mass index (BMI) [Ratio] 22.31 kg/m2Pmh [address] [place], [place] 5907711-12-2024 11:45-0500Body ownycf52.97 kg Pmh [address] [place], [place] 5907711-06-2024 11:25-0500Body khitxm440.6 cmJeanat Macdonald APRN-VISION TEACHER Work Phone: [facility]11-06-2024 11:25-0500Body mass index (BMI) [Ratio]22.49 kg/f4KftbcvaKaitlin Macdonald APRN-VISION TEACHER Work Phone: [facility]11-06-2024 11:25-0500Body vzuezf81.42 kgKaitlin Macdonald APRN-VISION TEACHER Work Phone: [facility]11-04-2024 13:28-0500Body mass index (BMI) [Ratio]23.52 kg/u5Nmmkavexurq Shama DO Work Phone: [facility] CenterCupfgetfbw39-89-6005 13:28-0500Body uhycwg33.24 kgChristopher Sesay DO Work Phone: [facility] CenterHnbxvkitdg04-37-2612 13:28-0500Diastolic blood dvyjhfbc406 mm[Hg]Raven Sesay DO Work Phone: [facility] CenterLfrbyyxcgc27-48-8575 13:28-0500Heart rate87 /min Christopher Shama DO Work Phone: [facility] CenterFammxzjcvu81-91-4149 13:28-1978CbC8% (BldA) [Mass fraction]91 %Raven Sesay DO Work Phone: [facility] CenterQuasrccais25-43-0897 13:28-0500Systolic blood eueoeeci002 mm[Hg]Christopher Shama DO Work Phone: [facility] CenterDhbtllqumf29-06-3369 11:35-0400Diastolic blood mm[Hg]MD Krzysztof Thompson Work Phone: [facility]07-17-2024 11:35-0400 Heart rate76 /minMD Krzysztof Hoy Work Phone: 1(229)[address] [place], [place] 1348607-17-2024 11:35-0400 Respiratory rate18 /minMD Krzysztof Hoy Work Phone: 1(974)[address] [place], [place] 1348607-17-2024 11:35-0400 SaO2% (BldA) [Mass fraction]96 %MD Krzysztof Thompson Work Phone: 1(457)[address] [place], [place] 1348607-17-2024 11:35-0400 Systolic blood mm[Hg]MD Krzysztof Thompson Work Phone: 1(805)[address] [place], [place] 1348607-17-2024 10:24-0400 Body plbuiy493.48 cmMD Krzysztof Hoy Work Phone: 1(488)[address] [place], [place] 1348607-17-2024 10:24-0400 Body thkizh43.14 kgMD Krzysztof Hoy Work Phone: 1(124)[address] [place], [place] 1348606-11-2024 09:07-0400 Body .48 cmMD Krzysztof Hoy Work Phone: 1(997)[address] [place], [place] 1348606-11-2024 09:07-0400 Body mass index (BMI) [Ratio]24.7 kg/m2MD Krzysztof Hoy Work Phone: 1(913)[address] [place], [place] 1348606-11-2024 09:07-0400 Body ecbwwf63.23 kgMD Krzysztof Hoy Work Phone: 1(610)[address] [place], [place] 1348606-11-2024 09:07-0400 Diastolic blood hsfmxfpi771 mm[Hg]MD Krzysztof Thompson Work Phone: 1(570)[address] [place], [place] 1348606-11-2024 09:07-0400 Heart rate60 /minMD Blankenship Hoy Work Phone: 1(982)[address] [place], [place] 1348606-11-2024 09:07-0400 Systolic blood wmynbble354 mm[Hg]MD Krzysztof Thompson Work Phone: 1(932)[address] [place], [place] 1348605-28-2024 13:37-0400 Diastolic blood jemetrgx24 mm[Hg]MD Krzysztof Thompson Work Phone: 1(159)455-[address] [place], [place] 1383405-28-2024 13:37-0400 Heart rate78 /min Krzysztof Thompson Work Phone: 1(248)[address]05-28-2024 13:37-0400 Respiratory rate16 /minMD Cortezlazara Thompson Work Phone: 1(814)[address] [place], [place] 1348605-28-2024 13:37-0400 SaO2% (BldA) [Mass fraction]97 %MD Krzysztof Thompson Work Phone: 1(002)[address]05-28-2024 13:37-0400 Systolic blood zkqgaqgc490 mm[Hg]MD Krzysztof Thompson Work Phone: 1(308)[address]05-28-2024 11:35-0400 Body pjazll951.48 cmMD Cortezlazara Thompson Work Phone: 1(633)[address] [place], [place] 1348605-28-2024 11:35-0400 Body guvfzraaiof95.1 [degF]MD Krzysztof Thompson Work Phone: 1(572)[address]05-28-2024 11:35-0400 Body .14 kgMD Blankenship Donna Work Phone: [phone] Encounters Encounter DateEncounter TypeCare ProviderFacilityStart: 06-23-2025 End: 59-20-2627Sqwgfp outpatient visit 15 minutesKaitlin Macdonald BUTTON SPINDLER-[facility] Work Phone: [facility] SurgeryComment on above: Incontinence of feces, unspecified fecal incontinence type (Primary Dx); Diverticular stricture ([facility])Start: 06-23-2025 End: 52-76-3183mlxystqthmZLQAFPLDeaconess Hospital [facility] Start: 05-13-2025 End: 07-31-3776sfsabzvvvwJhqsmju M Hoy MD Work Phone: 1([phone] [place] [address] Work Phone: Start: 05-13-2025 End: 27-77-9599Rxsguraw ReferredKrzysztof Marmolejo MD-[facility] Start: 05-04-2025 End: 62-40-9216xwbfchgzmkGtuyuhs M Hoy MD Work Phone: [facility] Work Phone: Start: 05-04-2025 End: 14-89-9265Opmehug encounter procedureRickie Johnson MD-[facility] Work Phone: Start: 04-27-2025 End: 14-30-8706ppfcriewcdTsjtlqa M Hoy MD Work Phone: [facility] Work Phone: Start: 04-27-2025 End: 34-02-6432Rzzncnu encounter procedureThsenait Alvares MD-[facility] Work Phone: Start: 04-02-2025 End: 24-68-0308cmhxshaseiUuqtjsn M Hoy MD Work Phone: [facility] Work Phone: Start: 04-02-2025 End: 80-44-6966Ytkmfnk encounter procedureThsenait Johnson MDInd[facility] Work Phone: Start: 47-65-5273isibxneojhNfbgsqHugo Atwood MD [facility]: 03-26-2025 End: 99-71-2021dosadzmnupKpthmtt M Hoy MD Work Phone: [facility] Work Phone: Start: 03-26-2025 End: 12-18-7277Xsvtqbw encounter procedureVasyl Calvert MD-[facility] Work Phone: start: 03-11-2025 End: 05-81-0921jfwnciyfvuBrnjiho M Hoy MD Work Phone: [facility] Work Phone: Start: 03-11-2025 End: 30-66-4736Ouvtnvv encounter procedureRickie Johnson MDG[facility] Work Phone: Start: 02-26-2025 End: 61-18-0402Cuqheoc encounter procedureVasyl Calvert MD-[facility] Work Phone: Start: 02-26-2025 End: 88-23-0091cbovccyeykHvoqety Jaleel DonnaFacility:[facility] Start: 02-19-2025 End: 12-07-6981Fyyzbjb encounter procedureVasyl Calvert MD-[facility] Work Phone: start: 12-25-2024 End: 20-12-1527Rtktnb outpatient visit 15 minutesKaitlin Macdonald APRN-[facility] Work Phone: [facility] SurgeryComment on above: Bright red blood per rectum (Primary Dx)Start: 12-25-2024 End: 86-10-8691Fwceeg OnlyNot In System Ref ProvProMedica Physicians General SurgeryStart: 08-11-2024 End: 76-83-7830kzmombgsxpGYMZRWUTDKE HASSETTNot AvailableStart: 08-11-2024 End: 46-28-2405Gxmgxw outpatient visit 25 minutesChristopher Shama DO Work Phone: [facility] ROUTEComment on above:Left hand pain (Primary Dx); Primary osteoarthritis of hand, unspecified lateralityStart: 08-04-2024 End: 20-89-4514Jhemojrox encounterLajaney Dawson CMAProMedica Physicians General SurgeryStart: 07-28-2024 End: 76-66-9837Jcijlhktcu and management of inpatientMENNATALLHERNANDEZ Marmolejo [facility] Centertart: 07-22-2024 End: 31-41-0340jqugtytxolJoa Pat Phone Call Provider [address] [place] [address] - Pre AdmitStart: 07-22-2024 End: 70-84-8260rtpgchdirkIGFEJLM M [facility] Hospitaltart: 07-17-2024 End: 59-23-2962Olawyh flowsheetChristopher Shama DO Work Phone: [facility] R[facility]TEStart: 07-17-2024 End: 05-58-4270Kjjmxm flowsheetChristopher Shama DO Work Phone: [facility]TEStart: 07-17-2024 End: 20-86-1433Aftqdlt encounter procedureChristopher Shama DO Work Phone: [facility] ROUTEComment on above:Cervical radiculopathy (Primary Dx); ParesthesiaStart: 07-17-2024 End: 97-17-2845idkhpiubkdPNQTCCPXBKJ HASSETTNot AvailableStart: 07-16-2024 End: 83-17-7332Ymvrif outpatient new 30 minutesRobynthomasville regional medical center Blane Macdonald BUTTON SPINDLER-VISION TEACHER Work Phone: [facility] General SurgeryComment on above: Vomiting in adult (Primary Dx); History of gastric ulcer; Chronic GERD; Hiatal hernia; Dysphagia, unspecified typeStart: 07-16-2024 End: 14-89-0151ezvxczfsfbUVTELCSOlympic [facility] Start: 07-15-2024 End: 07-15-0464fpcarijzbyNNHYL A HUDDLESTONNot AvailableStart: 07-15-2024 End: 94-16-2688Mapawr outpatient visit 10 minutesCleve Sheth DO Work Phone: noms ORTHOPAEDICSComment on above:Chronic right hip pain (Primary Dx); Sacral insufficiency fracture with routine healing, subsequent encounter; Closed fracture of multiple pubic rami, right, initial encounter ([facility])Start: 07-14-2024 End: 95-12-6134Urnfer flowsheetChristopher Shama DO Work Phone: [facility]TEStart: 07-14-2024 End: 63-30-0307Vilscz flowsheetChristopher Shama DO Work Phone: [facility]TEStart: 07-14-2024 End: 10-47-0571Ujktfe outpatient new 30 minutesChristopher Shama DO Work Phone: [facility] ROUTEComment on above:Paresthesia (Primary Dx)Start: 07-14-2024 End: 32-53-2085nxqfbntcilKCLGQLFVJGH HASSETTNot AvailableStart: 06-17-2024 End: 69-38-0078Wstumn flowspriscillaCleve Blane Meryl DO Work Phone: noms CI ORTHOPAEDICSStart: 06-17-2024 End: 72-44-0908Cttaxi flowsheetCleve Blane Meryl DO Work Phone: n[facility] CI ORTHOPAEDICSStart: 06-17-2024 End: 88-28-2690Gnghbo outpatient visit 25 minutesJabernard Sheth DO Work Phone: noms CI ORTHOPAEDICSComment on above:Chronic right hip pain (Primary Dx); Sacral insufficiency fracture, initial encounter ([facility]); Closed fracture of multiple pubic rami, right, initial encounter ([facility])Start: 06-17-2024 End: 80-16-4619txlpsvrifnBUDRLRoshan Mercedes AvailableStart: 06-13-2024 End: 19-05-2867Awohhvzio department patient visitDOIVIS LlanosSaint Joseph Hospital of Kirkwood HospitalStart: 06-12-2024 End: 24-50-5444wmlmabcmhrWEQXORoshan Mercedes AvailableStart: 06-05-2024 End: 42-56-5626Ckksfjnph encounterSammantfaye Case PTNOMS CI PTComment on above:PT Initial Eval (Contacted and offered to schedule PT eval per Dr. Thompson. She said she'd like to waittill after she is seen by Dr. Sheth today; she said she'd contact.); Call Back (She noted thatshe will be having a CAT scan and Dr. Sheth has told her to hold-off till post. I said if I donot hear from her I will contact mid next week.); FU (Contacted to request update per Meryl and she said she was not advised to begin w/ PT due to fractures in bones. )Start: 06-05-2024 End: 55-31-1276Fxueht outpatient visit 15 minutesJabernard Sheth DO Work Phone: [facility] FB ORTHOPAEDICSComment on above:Chronic right hip pain (Primary Dx)Start: 06-05-2024 End: 15-42-0769vszoqkbvcrGATNP A MERYLNot AvailableStart: 2024 End: 42-84-5088akodozfzzpKGOHH A HUDDLESTONNot AvailableStart: 04-01-2024 End: 77-37-4400ygkdyluxzeYWCWB A HUDDLESTONNot AvailableStart: 27-97-0268Fob- patient / Non-visitMD Krzysztof Hoy Work Phone: [facility] Work Phone: Start: 03-26-2024 End: 85-85-0852Dtbkdkwtw to same day surgery centerMD Krzysztof Hoy Work Phone: [facility] Work Phone: Start: 03-26-2024 End: 02-75-1197kkuwylkvabGF Krzysztof M Hoy Work Phone: [facility] Work Phone: Start: 02-19-2024 End: 00-37-7571xaiecmalbqJF Krzysztof M Hoy Work Phone: [facility] Work Phone: Start: 02-19-2024 End: 78-72-6673Ejruqvv encounter procedureMD Krzysztof Hoy Work Phone: [facility] Work Phone: Start: 46-26-1938Ykn-patient / Non-visitMD Krzysztof Hoy Work Phone: [facility] Work Phone: Start: 02-05-2024 End: 07-92-3007Llxsozsnu to same day surgery centerMD Krzysztof Hoy Work Phone: [facility] Work Phone: Start: 02-05-2024 End: 72-40-0872whqalhqpzaMD Krzysztof M Hoy Work Phone: [facility] Work Phone: Start: 24-03-6998Zge-patient / Non-visitMD Krzysztof Hoy Work Phone: [facility] Work Phone: Start: 01-09-2024 End: 86-52-8407sfqgfdrbgjSQHI DAVIDNot AvailableStart: 74-80-2620fklwigomuf [place] GARCIA .Facility:K8Avpmn: 01-15-2023 End: 02-28-2548mpfeocmazbLXHFUM RODRIGUEZ .Facility:G2Nozxj: 01-10-2023 End: 19-83-8411cduydhskneIW KRZYSZTOF HOY .Facility:Q3Ckshp: 12-15-2022 End: 40-10-6972kuuerngzxtHXNHNL RODRIGUEZ .Facility:E7Xrxqo: 12-15-2022 [facility] Hospitaltart: 12-05-2022 End: 76-12-1240uuvgoxnbciWW KRZYSZTOF HOY .Facility:E7Yljnl: 11-25-2022 End: 41-71-9024Qclqkczefq and management of inpatientDR KRZYSZTOF HOY .Facility:H1 Start: 11-13-2022 End: 52-00-5439dofgixltmsDT KRZYSZTOF HOY .Facility:U2Pbgnp: 11-09-2022 End: 12-13-5520btbuwmzwvdVC KRZYSZTOF HOY .Facility:Q5Wfzws: 10-20-2022 End: 89-53-1863ncfsfsvftqAV KRZYSZTOF HOY .Facility:A3Oiprh: 10-19-2022 End: 70-19-5570yblxgerxplNA KRZYSZTOF HOY .Facility:A8Viamn: 10-18-2022 End: 09-77-6149angbscmycnLC KRZYSZTOF HOY .Facility:I2Wobfw: 09-25-2022 End: 42-76-5397nrymgrrpsuWP KRZYSZTOF HOY .Facility:L0Hkcgz: 07-25-2022 End: 08-01-4126jmnqgxdjqkDM KRZYSZTOF HOY .Facility:W8Mmioi: 05-26-2022 End: 99-16-3481bchksxdqzsET KRZYSZTOF HOY .Facility:Y1Acrca: 05-25-2022 End: 97-82-3954ohgujcsdpqHK KRZYSZTOF HOY .Facility:C1Xddzt: 05-24-2022 End: 45-67-8495qwajtveekwTO KRZYSZTOF HOY .Facility:T3Qmswu: 05-11-2022 End: 08-94-4799npszqfzavyKL KRZYSZTOF HOY .Facility:V0Chlte: 02-14-2022 End: 52-48-4981zthgarypweLF KRZYSZTOF HOY .Facility:L4Fqkzx: 11-19-2018 End: 71-07-8455Pkbsrdt encounter procedurePROVIDER UNKNOWNFacility:UTMCStart: 11-13-2018 End: 61-80-9289Smyhwaz encounter procedureDEFAULT PHYSICIANFacility:[facility]tart: 10-31-2018 End: 52-49-2043Yzdwrfq encounter procedureDEFAULT PHYSICIANFacility:[facility]ENTERtart: 09-23-2018 End: 42-08-6397Oaiotmw encounter procedureDEFAULT PHYSICIANFacility:[facility]ENTERtart: 09-05-2018 End: 10-36-4834Eoiunys encounter procedureDEFAULT PHYSICIANFacility:[facility] Procedures DateProcedureProcedure DetailPerforming ClinicianStart: 41-79-2791Rzejw X-ray of right shoulderKrzysztof Thompson MD Work Phone: [phone]-art: 18-85-1423P-ray of thoracic spine, two views Krzysztof Thompson MD Work Phone: Start: 04-57-6055A-ray of lumbar spine, six views including bending viewsKrzysztof Thompson MD Work Phone: [phone]-: 55-24-2857S-ray of cervical spineKrzysztof Thompson MD Work Phone: Start: 16-80-9115Jdci energy X-ray absorptiometry Krzysztof Thompson MD Work Phone: [phone]-art: 07-17-2024 End: 73-87-5869Wnirqm emg ea extremty w/paraspinl area completeChristopher Shama DO Work Phone: Start: 29-35-8497Abazp hip unilateral with pelvis 2-3 viewsCleve Sheth DO Work Phone: Start: 51-14-2092LgixywbjomhQgt In System Ref Prov Start: 77-34-4846Oumdneaju colonoscopyMD Krzysztof Thompson Work Phone: Start: 71-45-2527WqtlrrcznzsivdphhdcrxfmjmpQP Krzysztof Thompson Work Phone: Plan of Treatment DateCare ActivityDetailAuthorStart: 05-31-4685BYoV,Tdap and Td Vaccines (2 - Td or Tdap)DTaP,Tdap and Td Vaccines (2 - Td or Tdap)[facility] SystemStart: 32-11-0839Rqytrkm ScreeningTobacco ScreeningK[facility] SystemStart: 95-17-2160Erizaqn ScreeningTobacco ScreeningK[facility] SystemStart: 08-82-0116Zcdyaao ScreeningTobacco ScreeningK[facility]tering [facility] Health SystemStart: 29-76-5935Ezqmymy ScreeningTobacco ScreeningK[facility]tering [facility] Health SystemStart: 31-49-4738Rymxfqd ScreeningTobacco ScreeningUniversity Hospitals Geneva Medical Centerca [facility] SystemStart: 17-43-5115Ddtesvu ScreeningTobacco ScreeningK[facility] SystemStart: 63-46-5605Cmsbosma identified in Urine by CultureUrine Mercy Healthtart: 16-61-7035Hitwm [facility] Start: 50-89-0484TGKHF-19 Vaccine ( season)COVID-19 Vaccine ( season)[facility] SystemStart: 25-58-0136Vfzlphzuo vaccination Influenza VaccineK[facility]tering Health [facility] SystemStart: 87-60-4299KxnzblbMemorial Health [facility] Work Phone: Start: 24-43-1063I-ray of thoracic spine, two viewsXR thoracic spine 2[facility]tart: 37-50-6745OI Thoracic spine 2 [facility] Hospitaltart: 57-20-4291Jvyjvdk referral [facility] Work Phone: Start: 08-11-2024 End: 52-82-6905Kijvwqk encounter dwxhixfaa49/02/2024 2:15 PM EST [facility] [address] [place] [phone] Raven Sesay DO [address] [place] [address] [facility] R[facility]TEStart: 07-28-2024 End: 75-00-9982Hzukkxdvb to same day surgery iqjtui3907/28/2024 9:15 AM EST - 07/28/2024 9:45 AM EST Surgery [facility] [address] [place] [phone] Nidia White MD [address] [place] [phone] ESOPHAGOGASTRODUODENOSCOPY DIAGNOSTIC [07561 (CPT )][facility] HospitalComment on above:ESOPHAGOGASTRODUODENOSCOPY DIAGNOSTIC [66750 (CPT )]Start: 07-28-2024 End: 36-73-0672Vbihmidsuagasegrdfxzlnkvvn transoral diagnostic ESOPHAGOGASTRODUODENOSCOPY DIAGNOSTIC vomiting, gastroesophageal reflux, dysphagia 07/28/2024 9:15 AM ESTFREMONT SURGERYStart: 48-46-8713Kugpfmuqxn hospital visit by qwgkhisep75/18/2024 9:15 AM EST Hospital Encounter [facility] [address] [place] [phone] Nidia White MD [address] [place] [address] [facility] SurgeryStart: 07-22-2024 End: 94-24-1734baodzkjkts82/12/2024 3:10 PM EST Support Visit [facility] Admit [address] [place] [address] [facility] AdmitStart: 07-17-2024 End: 89-48-6267Vsschco encounter procedureNOMS [facility] STATE ROUTEComment on above:ArrivedStart: 07-15-2024 End: 15-07-9742Gmjwyfc encounter procedureNOMS CI ORTHOPAEDICSStart: 07-14-2024 End: 99-36-3203TGY 1 ExtremeityEMG 1 Extremeity Neurology Routine Paresthesia Expected: 07/14/2024, Expires: 07/14/2025[facility] Work Phone: comment on above:Expected: 07/14/2024, Expires: 07/14/2025Start: 07-14-2024 End: 60-67-1712Fapdbuk encounter procedureNOMS [facility] STATE ROUTEComment on above:Brachial plexopathy; Ulnar neuropathy of left upper extremityStart: 06-17-2024 End: 71-84-7294Erkseyy encounter gnolkedvm52/08/2024 1:30 PM EDT Office Visit [facility] [address] [facility] [address] [place] [address] Cleve Sheth DO [address] [place] [address] Chronic right hip pain (Primary Dx); Sacral insufficiency fracture, initial encounter (CMS/HCC); Closed fracture of multiple pubic rami, right, initial encounter (CMS/HCC)[facility] Comment on above:Chronic right hip pain (Primary Dx); Sacral insufficiency fracture, initial encounter (CMS/HCC); Closed fracture of multiple pubic rami, right, initial encounter (CMS/HCC)Start: 06-16-2024 End: 89-97-2037Ojtvjjm encounter cttihjisn88/07/2024 12:30 PM EDT Office Visit [facility] [address] [place] [phone] Raven Sesay, DO [address] [place] [address] [facility] R[facility]TEStart: 05-11-2024 COVID-19 Vaccine ( season)COVID-19 Vaccine ( season) [facility] SystemStart: 88-61-4430Hrjsnhdcs vaccinationInfluenza Vaccine (#1)[facility] HealthcareStart: 33-20-2584VklsvgiiwOhioHealth Dublin Methodist Hospitaltart: 51-14-1693MlocpseskOhioHealth Dublin Methodist Hospitaltart: 03-43-8306Tdhnssjrzlfsor of varicella zoster vaccineZoster (Shingles) Vaccine (3 of 3)[facility] SystemStart: 41-19-0337Glsm Risk ScreeningFall Risk ScreeningKettering Health Miamis[facility] SystemStart: 96-63-6560VDoW,Tdap and Td Vaccines (1 - Tdap)DTaP,Tdap and Td Vaccines (1 - Tdap)[facility] SystemStart: 46-93-3441Pcmrcqficx Screening Depression ScreeningKettering Health [facility] System End: 08-44-9749OrespufbbhifozmxfqmiqvupklDSZ GI Routine Vomiting in adult Chronic GERD Dysphagia, unspecified type 1 Occurrences starting 07/16/2024 until 07/16/2025[facility] Work Phone: Comment on above:1 Occurrences starting 07/16/2024 until 07/16/2025[facility] Work Phone: [facility] referralPromedica [facility] Work Phone: XR Shoulder - right ViewsTGH [facility] Immunizations Immunization DateImmunizationNotesCare FfpdnfuxVtbidfwe07-40-1203idqcemnvw virus vaccine, unspecified formulationChristopher Shama DO Work Phone: [facility] Xhhdpaaqzm51-08-2615Lehxmkjwk, Seasonal, Quadrivalent, AdjuvantedJames Meryl DO Work Phone: [facility] CenterWrrvpxvmbc78-30-7758wmlwrjnvj virus vaccine, unspecified formulationJames [place] DO Work Phone: [facility] CenterXdcglqzagt53-99-3243gpkzrktkg, high dose seasonal, preservative-freeJames Meryl DO Work Phone: [facility] CenterBfliugqrgp46-50-7934Wuypfaowr, High-dose Seasonal, Quadrivalent, Preservative Freemes [place] DO Work Phone: [phone] [place], [place] [address]Ajcionhyei80-65-8776Gvbctfdlw, High-dose Seasonal, Quadrivalent, Preservative FreeJames Stone Ridge DO Work Phone: [phone] [place], [place] [address]Czxowqxuvd76-70-1059ACQJ-LuR-8, UnspecifiedJames Stone Ridge DO Work Phone: [facility] CenterTzgehxuprv83-02-3998gkuoip vaccine, unspecified formulationKaitlin Dumontoll BUTTON SPINDLER-VISION TEACHER Work Phone: [facility] HospitalCdoihn61-21-1684wgtwhktkw, high dose seasonal, preservative-freeJames Stone Ridge DO Work Phone: [phone] [address] [place], [place] [address]Xtrvdxelkh85-04-6083xmxhryfsk, injectable, quadrivalent, preservative freeSci-[facility] DO Work Phone: [facility] CenterCoslomfolj61-22-8072wbyxtovpi, high dose seasonal, preservative-freeJames Stone Ridge DO Work Phone: [phone] [address] [place], [place] [address]Lcipisoicn63-03-4400gkcpjeukr, high dose seasonal, preservative-freeJames Merly DO Work Phone: [phone] [address] [place], [place] [address]Oeegptwotq74-56-3695wflsjhmeozbc conjugate vaccine, 13 valentJames Stone Ridge DO Work Phone: [phone] [place], [place] [address]Wrzqsninei48-76-9208ihyaouzuj, seasonal, injectableJames Stone Ridge DO Work Phone: [facility] CenterAlsiugpamk96-44-4657wzmlsk vaccine, liveJames Stone Ridge DO Work Phone: [phone] [place], [place] [address]Eblapudcnl50-41-4788skmbzxhjikmh polysaccharide vaccine, 23 valentCleve Davisonston DO Work Phone: [facility] CenterYopuhvibjs70-28-7968jgrmoujy influenza, intradermal, preservative Bryan Andersondleston DO Work Phone: [facility] Payers DatePayer CategoryPayerPolicy [id number]-pay2022MedicareANTHEM MEDICARE ADVANTAGE ANTHEM MEDICARE ADVANTAGE [id number] 2021-Present [address] [place] [id number] 2022Medicare (Managed Care)ANTHEM MEDICARE ADVANTAGE [id number] 2018Medicare [facility] MEDICARE Member Subscriber Plan / Payer (Effective 2017-Present) Name: Lopez Mac Relation to Subscriber: Self Name: Sheila Mac Payer ID: [id number] (NAIC) Group ID: [id number] Type: Not on file Address: [address] [place] [id number] [id number] 2.16840.1.044442.3.579.2.54373-26-5111 [id number] 2.16840.1.218413.3.579.[id number] 2.16840.1.411545.3.57[id number] 2.840.1.821982.3.57[id number] 2.840.1.808235.3.57[id number] 2.840.1.094338.3.57[id number] 2.840.1.208884.3.579.[id number] 2.840.1.933635.3.579.2.34981-50-3896Gbitsid8042900 2.840.1.649564.3.579.2.86826-16-8350Xdvrfdz0314936 2.840.1.650061.3.579.2.43258-83-4095Jkwimxr7770358 2.840.1.669109.3.579.2.50084-15-5940Itzcvju0480970 2.840.1.207903.3.57[id number] 2.840.1.841317.3.579.[id number] 2.840.1.016829.3.57[id number] 2.840.1.999864.3.579.2.90490-60-0713Inzqrmu0683008 2.16840.1.219773.3.57[id number] 2.840.1.543602.3.57[id number] 2.16840.1.480487.3.579.2.99236-68-8099Rdkxsul6061216 2.840.1.050994.3.579.2.21490-53-9496Xjpqdlv6402710 2.840.1.798379.3.579.2.18526-66-9771Htnavxl2257925 2.840.1.647231.3.579.[id number] 2.0.1.444016.3.579.2.39301-17-1657Lgqexkh4250975 2.840.1.779279.3.579.2.76271-69-2862Gwryiuw4987446 2.840.1.050097.3.579.[id number] 2.840.1.171537.3.579.2.796884-18-7221Mlffecu19590075 2.840.1.231681.3.579.2.569841-01-4281Bnztdqd07135652 2.840.1.137113.3.579.2.018053-59-9385Ydfinrj7641948 2.840.1.101742.3.579.2.251529-31-7139Airfddz3133430 2.840.1.711095.3.579.2.256906-51-3911Gxqudif7833982 2.16.840.1.194913.3.579.2.928841-46-5348Pwixcap3269095 2.0.1.304717.3.579.2.719660-24-9742Anbpqad7181314 2.0.1.653949.3.579.2.640153-64-5324Uposzoq5651420 2.0.1.475865.3.579.2.794286-88-5530Xnmaofy1195679 2..1.391524.3.579.2.424559-58-7697Tdoxznt2133117 2..1.109838.3.579.2.820573-30-9648Ldhcmal3513759 2..1.928234.3.579.2.590519-96-5243Myawiac1841437 2..1.445453.3.579.2.280204-89-0083Xlxctlq7563623 2..1.977531.3.579.2.633740-72-7586Qhzfpfi284354230 2..1.439170.3.579.2.596979-79-1251Iaagpqr431339390 2..1.528694.3.579.2.882520-72-8051Kzxgldi94378460 2..1.9798[id number] 2.0.1.100542.3.579.2.573Fonaysj51606123 2.840.1.479773.3.579.2.531 [id number] 2.0.1.50170[id number] 2.16.840.1.235941.3.579.2.531 Social History DateTypeDetailFacilityStart: 09-28-2017 End: 00-61-9393Sknjmow smoking status NHISNever smoked tobacco (finding) [facility]: 65-10-6412Zmh Assigned At BirthFemale [facility]: 01-09-2024 End: 62-14-6601Mxzkbykwr beverage intakeLifetime non-drinker (finding)[facility] HealthcareStart: 10-21-2020 End: 24-12-9379Txignkd of Social functionNOMS HealthcareStart: 10-21-2020 End: 14-13-0901Xdbydxj use panelMOUNTAINSTAR HEALTHCARE HealthcareStart: 49-74-2145Sbr assigned at birthNot on fileMOUNTAINSTAR HEALTHCARE HealthcareStart: 48-82-2233Nzdncux use and exposure Smokeless tobacco non-userProCentral Alabama Va Medical Center[facility] Health SystemStart: 07-16-2024 End: 48-23-0639Bnrasqlgw beverage intakeCurrent non-drinker of alcohol (finding) [facility] SystemChildcareUnknowSelect Medical [facility] SystemStart: 04-15-2015 SexFemale (finding)[facility] Goals DatePatient GoalDesired Activity/State Clinical Notes 02-14-2022 to 06-23-2025 Note Date & BrzvFxdfDhoygzjh60-20-0762 History of Present illness Narrative* Kaitlin Macdonald, BUTTON SPINDLER-VISION TEACHER - 06/23/2025 10:30 AM EDT Images from the original note were not included. Chief Complaint: Rectal bleeding History of Present Illness Sheila Mac is a 75 y.o. female who presents to the office [...] was March [address] [place] [facility] [place] Sigmoid diverticular stricture noted, able to pass with EGD scope. No polyps. Interval update 06/23/2025: Patient has increased her fiber intake. She is drinking 2 bottles of water daily. She is no longer having rectal bleeding. She states she strains a lot to have a bowel movement and then has diarrhea.She feels like she is unable to completely evacuate her bowels. She also endorses continued bowel incontinence. Review of Systems Constitutional: Negative for fever and unexpected weight change. HENT: Negative for trouble swallowing. Respiratory: Negative for shortness of breath. Cardiovascular: Negative for chest pain. Gastrointestinal: Positive for diarrhea and constipation. Negative for abdominal pain, blood in stool and rectal pain. Bowel incontinence Genitourinary: Negative for dysuria and difficulty urinating. Musculoskeletal: Negative for gait problem. Skin: Negative for rash and wound. Neurological: Negative for dizziness, weakness and light-headedness. Hematological: Does not bruise/bleed easily. Psychiatric/Behavioral: Negative for confusion. Past Medical History: Diagnosis Date Arthritis Back pain COPD (chronic obstructive pulmonary disease) [place] Diverticulitis Fecal incontinence GERD (gastroesophageal reflux disease) Hyperlipidemia Hypertension Pancreatitis Peptic ulceration Pneumonia PONV (postoperative nausea and vomiting) Prolonged emergence from general anesthesia Rectal bleeding Stroke [place] x2, patient states light strokes Visual impairment Past Surgical History: Procedure Laterality Date APPENDECTOMY BACK SURGERY LOWER CHOLECYSTECTOMY 2016 patient states did not have this surgery COLONOSCOPY COLONOSCOPY N/A 05/26/2021 Performed by Freeman Michelle DO at [facility] EGD N/A 10/01/2017 Performed by Freeman Michelle DO at [facility] ESOPHAGOGASTRODUODENOSCOPY ESOPHAGOGASTRODUODENOSCOPY N/A 05/26/2021 Performed by Freeman Michelle DO at [facility] ESOPHAGOGASTRODUODENOSCOPY DIAGNOSTIC N/A 07/28/2024 Performed by Nidia White MD at [facility] HYSTERECTOMY KNEE ARTHROSCOPY Right patient denies sugery, [...] mouth in the morning., Disp: , Rfl: Social History Socioeconomic History [...] on file Food Insecurity: No Food Insecurity (06/23/2025) Hunger Screening Food Insecurity - Worry: Never True Food Insecurity - Inability: Never True Transportation Needs: Not on file Physical Activity: Not on file Stress: Not on file Social Connections: Not on file Interpersonal Safety: Unknown (11/01/2023) Received from [facility] [place] Safety & Environment Fear of Current [...] distress. Abdominal: General: There is no distension. Musculoskeletal: General: Normal range of motion. Skin: General: Skin is warm and dry. Neurological: Mental Status: She is alert and oriented to person, place, and time. Mental status is at baseline. Vital Signs: Blood pressure 144/82, pulse 66, height 162.6 cm (5' 4 ), weight 53.8 kg (118 lb 9.6 oz). Respiratory Source: No data recorded Admission Weight: Weight: 53.8 kg (118 lb 9.6 oz) Labs No results found for: WBC [...] results found for: INR , PROTIME Assessment Incontinence Feeling of incomplete bowel evacuation Sigmoid diverticular stricture without s/s obstruction Plan 2 L of water, healthy high fiber diet, MiraLax as needed to promote regular bowel movements. Referral to Colorectal. Evaluation included: Preparing to see the patient (e.g., review of tests) Obtaining and/or reviewing separately obtained history Performing a medically appropriate examination and/or evaluation Counseling and educating the patient/family/caregiver Referring and communicating with other health caregiver services home Incontinence of feces, unspecified fecal incontinence type [R15.9] TAMIE REYES [facility] [place] This note was created with the assistance of a speech recognition program. While intending to generate a timely document that accurately reflects the content of the visit, no guarantee can be provided that every grammatical or spelling mistake has been or will be identified or corrected. Thank you for your understanding. TAMIE Reyes 06/23/25 1034 documented in this encounterMiami Valley Hospital06-12-2025 Evaluation note* Diagnosis Onset Date Resolution Status Admit Date Left lumbosacral radiculopathy acuteJune 2024 2:18pmSpondylolisthesis, lumbar regionacuteJune 2024 2:18pmChronic painacuteJuly 2024 7:53amMyalgiaacuteJuly 2024 7:53am Thoracic back painacuteJuly 2024 7:53am [facility] Work Phone: 1(618) 760-406506-12-2025 Evaluation note* Diagnosis Onset Date Resolution Status Admit Date Left lumbosacral radiculopathy acuteJune 2024 2:18pmSpondylolisthesis, lumbar regionacuteJune 2024 2:18pmChronic painacuteJuly 2024 7:53amMyalgiaacuteJuly 2024 7:53am Thoracic back painacuteJuly 2024 7:53amLeft lumbosacral radiculopathyacute March 26, 2025 2:23pmSpondylolisthesis, lumbar regionacuteJuly 2024 2:23pm [facility] Work Phone: 1(553) 409-489006-12-2025 Evaluation note* Diagnosis Onset Date Resolution Status Admit Date Left lumbosacral radiculopathy acuteJune 2024 2:18pmSpondylolisthesis, lumbar regionacuteJune 2024 2:18pmChronic painacuteJuly 2024 7:53amMyalgiaacuteJuly 2024 7:53am Thoracic back painacuteJuly 2024 7:53amLeft lumbosacral radiculopathyacute March 26, 2025 2:23pmSpondylolisthesis, lumbar regionacuteJuly 2024 2:23pmChronic painacuteJuly 2024 8:55amMyalgiaacuteJuly 2024 8:55am Shoulder pain, rightacuteJuly 2024 8:55amThoracic back painacuteJuly 2024 8:55am [facility] Work Phone: 1(367) 737-655706-12-2025 Evaluation note* Diagnosis Onset Date Resolution Status Admit Date Left lumbosacral radiculopathy acuteJune 2024 2:18pmSpondylolisthesis, lumbar regionacuteJune 2024 2:18pmChronic painacuteJuly 2024 7:53amMyalgiaacuteJuly 2024 7:53am Thoracic back painacuteJuly 2024 7:53amLeft lumbosacral radiculopathyacute March 26, 2025 2:23pmSpondylolisthesis, lumbar regionacuteJuly 2024 2:23pmChronic painacuteJuly 2024 8:55amMyalgiaacuteJuly 2024 8:55am Shoulder pain, rightacuteJuly 2024 8:55amThoracic back painacuteJuly 2024 8:55amGERD (gastroesophageal reflux disease)acuteAugust 2024 1:29pm OsteoporosisacuteAugust 2024 1:29pmPostmenopausalacuteAugust 2024 1:29pmStomach ulceracuteAugust 2024 1:29pm [facility] Work Phone: 1(414) 145-903106-12-2025 Evaluation note* Diagnosis Onset Date Resolution Status Admit Date Left lumbosacral radiculopathy acuteJun2024 2:18pmSpondylolisthesis, lumbar regionacuteJune 2024 2:18pmChronic painacuteJuly 2024 7:53amMyalgiaacuteJuly 2024 7:53am Thoracic back painacuteJuly 2024 7:53amLeft lumbosacral radiculopathyacute March 26, 2025 2:23pmSpondylolisthesis, lumbar regionacuteJuly 2024 2:23pmChronic painacuteJuly 2024 8:55amMyalgiaacuteJuly 2024 8:55am Shoulder pain, rightacuteJuly 2024 8:55amThoracic back painacuteJuly 2024 8:55amGERD (gastroesophageal reflux disease)acuteAugust 2024 1:29pm OsteoporosisacuteAugust 2024 1:29pmPostmenopausalacuteAugust 2024 1:29pmStomach ulceracuteAugust 2024 1:29pmChronic painacuteAugust 2024 8:05amMyalgiaacuteAugust 2024 8:05amShoulder pain, rightacuteAugust 2024 8:05amThoracic back painacuteAugust 2024 8:05am [facility] Work Phone: 1(938) 920-466604-17-2025 History of Present illness Narrative* Kaitlin Arguelles Torres, BUTTON SPINDLER-VISION TEACHER - 12/25/2024 10:00 AM EDT Images from [...] was March [address] [place] [facility] [place] Sigmoid diverticular stricture noted, able to pass [...] Back pain COPD (chronic obstructive pulmonary disease) ([facility]) Diverticulitis GERD (gastroesophageal reflux disease) Hyperlipidemia Hypertension Pancreatitis Peptic ulceration Pneumonia PONV (postoperative nausea and vomiting) Prolonged emergence from general anesthesia Rectal bleeding Stroke (CMS-HCC) x2, patient states light strokes Visual impairment Past Surgical History: Procedure Laterality Date APPENDECTOMY BACK SURGERY LOWER CHOLECYSTECTOMY 2016 patient states did not have this surgery COLONOSCOPY COLONOSCOPY N/A 05/26/2021 Performed by Freeman Michelle DO at [facility] EGD N/A 10/01/2017 Performed by Freeman Michelle DO at [facility] ESOPHAGOGASTRODUODENOSCOPY ESOPHAGOGASTRODUODENOSCOPY N/A 05/26/2021 Performed by Freeman Michelle DO at [facility] ESOPHAGOGASTRODUODENOSCOPY DIAGNOSTIC N/A 07/28/2024 Performed by Nidia White MD at [facility] HYSTERECTOMY KNEE ARTHROSCOPY Right patient denies sugery, [...] Interpersonal Safety: Unknown (11/01/2023) [facility] from [facility] Safety & Environment Fear of Current or [...] patient/family/caregiver Referring and communicating with other health caregiver services home Bright red blood per rectum [K62.5] TAMIE REYES [facility] [place] This note was created with the assistance of a speech recognition program. While intending to generate a timely document that accurately reflects the content of the visit, no guarantee can be provided that every grammatical or spelling mistake has been or will be identified or corrected. Thank you for your understanding. TAMIE Reyes 12/31/24 1056 documented in this encounterMiami Valley Hospital12-02-2024 History of Present illness Narrative* Raven [...] , wrist extensors , wrist flexor , assistant attorney general strength 5/5. LUE Strength deltoid , biceps , triceps , wrist extensors , wrist flexor , assistant attorney general strength 5/5. RLE Strength illopsoas, quadriceps, tibialis [...] reflex 0 . Metzger's sign negative. Coordination: Cceenj-gk-pgay testing and rapid alternating movements are normal Gait: Patient ambulates with a walker Review and summary of old records: EMG of the left upper extremity on 07/17/2024: A remote C8 radiculopathy on the left which is yysf-ix-pfzztbnb. No evidence of plexopathy or mononeuropathy. Venous [...] plan, and return instructions documented in this encounterParkland Health CenterKtbouymmyh64-11-7312 Miscellaneous Notes* Telephone Encounter - Angelica Dawson CMA - 08/04/2024 2:31 PM EST ----- Message from Dr. Niida White MD sent at 08/01/2024 12:06 PM [...] with no further questions. documented in this encounterMiami Valley Hospital11-25-2024 Telephone encounter Note* Telephone Encounter - [...] 8:17 PM EST To: Nidia White MD [facility]11-25-[facility] Telephone encounter Note* Telephone Encounter - Angelica Dawson CMA - 08/04/2024 2:31 PM EST Spoke with patient regarding pathology results. Patient verbally understood with no further questions. Anhelo11-12-2024 Miscellaneous Notes* Perioperative Nursing Note - Sakina Marvin RN - 07/22/2024 3:10 PM EST Preoperative Education Checklist- General Surgery date: 07/28/24 Surgery time: 914 Arrival time: 714 1. Bring a photo ID and your insurance card with you the day of surgery. You will check in at the main lobby of the [facility]- registration desk is straight ahead as soon as you walk in. Tell them you are here for surgery. 2. If you have a Living Will/Durable Power of Personal Banking Assistant for Health Care that is not [...] after you have bathed. 5. NO nail dominican/acrylic on at least one finger. If you are having a hand, wrist or foot surgery then all nail dominican and artificial/acrylic nails must be removed from [...] please call the Preadmission Testing office at [phone], Mon.-Fri. 7 a.m.-3 p.m. Leave a voicemail [...] days prior to procedure documented in this encounterMiami Valley Hospital11-12-2024 Nurse Note* Perioperative Nursing Note - Sakina Marvin RN - 07/22/2024 3:10 PM EST Preoperative Education Checklist- General Surgery date: 07/28/24 Surgery time: 914 Arrival time: 714 1. Bring a photo ID and your insurance card with you the day of surgery. You will check in at the main lobby of the [facility]- registration desk is straight ahead as soon as you walk in. Tell them you are here for surgery. 2. If you have a Living Will/Durable Power of Personal Banking Assistant for Health Care that is not [...] after you have bathed. 5. NO nail dominican/acrylic on at least one finger. If you are having a hand, wrist or foot surgery then all nail dominican and artificial/acrylic nails must be removed from [...] please call the Preadmission Testing office at [phone], Mon.-Fri. 7 a.m.-3 p.m. Leave a voicemail [...] Stop taking 0 days prior to procedure [facility]11-07-[facility] History of Present illness Narrative* KALI Wolfe - 07/17/2024 9:00 AM EST Images from the original note were not included. Reason for Appointment: EMG Patient: Sheila Mac : 1950 EMG Computer: Glassful Referring Physician: Dr. Raven Sesay EMG: CINTHYA sound effects person: Jarrett Palmer RT(R) Office Location: [place] Reason for EMG: c/o numbness/tingling in left hand especially in 3rd 4th 5th digits, weakness in left hand. Hx of surgery to neck. No hx of DM. Taking ASA & Plavix. Comments: Procedure was explained to the patient & who expressed understanding. Patientappeared to have tolerated the test well despite some discomfort due to the nature of the test. documented in this [facility]11-06-2024 History of Present illness Narrative* Kaitlin Macdonald, BUTTON SPINDLER-VISION TEACHER - 07/16/2024 11:30 AM EST Images from [...] Diagnosis Date COPD (chronic obstructive pulmonary disease) [place] Diverticulitis GERD (gastroesophageal reflux disease) Hyperlipidemia Hypertension Pancreatitis Peptic ulceration PONV (postoperative nausea and vomiting) Stroke [place] x2, patient states light strokes Visual impairment Past Surgical History: Procedure Laterality Date APPENDECTOMY BACK SURGERY LOWER CHOLECYSTECTOMY 2016 COLONOSCOPY COLONOSCOPY N/A 05/26/2021 Performed by Freeman Michelle DO at [facility] EGD N/A 10/01/2017 Performed by Freeman Michelle DO at [facility] ESOPHAGOGASTRODUODENOSCOPY ESOPHAGOGASTRODUODENOSCOPY N/A 05/26/2021 Performed by Freeman Michelle DO at [facility] HYSTERECTOMY KNEE ARTHROSCOPY Right patient denies sugery, [...] Interpersonal Safety: Unknown (11/01/2023) Received from [facility] [place] Safety & Environment Fear of Current [...] patient/family/caregiver Referring and communicating with other health caregiver services home Vomiting in adult [R11.10] KAITLIN MACDONALD, BUTTON SPINDLER-VISION TEACHER [facility] [place] This note was created with the assistance of a speech recognition program. While intending to generate a timely document that accurately reflects the content of the visit, no guarantee can be provided that every grammatical or spelling mistake has been or will be identified or corrected. Thank you for your understanding. Kaitlin Macdonald, TAMIE 07/16/24 1232 documented in this encounterMiami Valley Hospital11-05-2024 History of Present illness Narrative* Cleve Sheth, DO - 07/15/2024 10:30 AM EST Images from the original note were not included. HISTORY OF PRESENT ILLNESS: Sheila Mac is an 74 y.o. @ female. Chief complaint RT hip pain RT hip: using calcitonin NS Pt went to [facility] ER 06/13, X-rays done pelvis and lumbar. RX for lidoderm patches given, she states she could hardly walk. RT hip pain x 3-4 months, worsened on 05/31 after going to the grocery store. Denies injury. She hadinjections at [facility] in April without relief. She saw Dr Thompson 06/02 and 06/04, given IM injections-no relief. She is walking better, using rollator. Mild ache in the thigh. Using pain spray daily Saw Dr Thompson 06/02 and 06/04. XR done at [facility] 06/02/24. Using hot icy hot. Given IM torodol, Tramadol RX and PT ordered, XR [place] [facility] 06/05/24, MRI [facility] 06/12/24, [facility] ER 06/13/24, lidoderm patches, calcitonin NS [...] HISTORY: Past Medical History: Diagnosis Date Diabetes [place] [place] Diverticulitis Gastric ulcer GERD (gastroesophageal reflux disease) HTN (hypertension) ([facility] Osteoporosis [place] [facility] Pancreatitis Rheumatic fever ALLERGIES: Allergies Allergen Reactions Iodinated Contrast Media Morphine Penicillins Nsaids Rash VITALS: Visit Vitals Smoking Status Never PHYSICAL EXAM: Ortho Exam RIGHT HIP Using Rollator Strength 4/5 ROM 30 IR and 30 ER IMAGING: June 05, 2024 x-rays from the [place] office AP pelvis and lateral of the right hip demonstrate an intact hip joint space. There are no fractures detected. The bone has an osteopenic appearance.The joint spaces are symmetric. There is no obvious effusion or soft tissue swelling. Impression: No acute findings on x-rays of the right hip Hemal Sheth D.O. MRI of the right hip from the [facility] center. There is a sacral [...] of multiple pubic rami, right, initial encounter [place] S32.591A calcitonin, salmon, (Miacalcin) [...] Dr. Sheth/ashley Sheth D.O. documented in this encounterParkland Health CenterVrnrziewev65-31-5258 History of Present illness Narrative* Raven Sesay [...] headaches. Past Medical History: Diagnosis Date Diabetes ([facility]) Diverticulitis Gastric ulcer GERD (gastroesophageal reflux disease) HTN (hypertension) ([facility] [facility] Osteoporosis ([facility]) Pancreatitis Rheumatic fever Past Surgical History: Procedure [...] , wrist extensors , wrist flexor , assistant attorney general strength 5/5. LUE Strength deltoid , biceps , triceps , wrist extensors , wrist flexor , assistant attorney general strength 5/5. RLE Strength illopsoas, quadriceps, tibialis [...] reflex 0 . Metzger's sign negative. Coordination: Srarwy-yz-hrgt testing and rapid alternating movements are normal [...] plan, and return instructions documented in this encounterParkland Health [id number] History of Present illness Narrative* Cleve Arguelles Meryl, - 06/17/2024 1:30 PM EDT Images from the original note were not included. HISTORY OF PRESENT ILLNESS: Sheila Mac is an 74 y.o. @ female. Chief complaint RT hip pain RT hip: here for MRI results [facility] 06/12/[address] [facility] ER 06/13, X-rays done pelvis and lumbar. RX for lidoderm patches given, she states she could hardly walk. RT hip pain x 2-3 months, worsened on 05/31 after going to the grocery store. Denies injury. She hadinjections at [facility] in April without relief. She saw Dr [...] Thompson 06/02 and 06/04. XR done at [facility] 06/02/24. Using hot icy hot. Given IM torodol, Tramadol RX and PT ordered, XR [facility] 06/05/24, MRI [facility] 06/12/24, [facility] ER 06/13/24, lidoderm patches [facility], [facility]24. Patient [...] HISTORY: Past Medical History: Diagnosis Date Diabetes ([facility]) Diverticulitis Gastric ulcer GERD (gastroesophageal reflux disease) HTN (hypertension) ([facility]) Osteoporosis ([facility]) Pancreatitis Rheumatic fever ALLERGIES: Allergies Allergen Reactions [...] IMAGING: June 05, 2024 x-rays from the [place] office AP pelvis and lateral of the right hip demonstrate an intact hip joint space. There are no fractures detected. The bone has an osteopenic appearance.The joint spaces are symmetric. There is no obvious effusion or soft tissue swelling. Impression: No acute findings on x-rays of the right hip Hemal [place] I reviewed an MRI of the right hip from the [facility]. There is a sacral insufficiencyfracture and suspected insufficiency fractures of the right superior and inferior pubic rami. The right hip joint is intact and there are no fractures in the hip. There is loss of articular cartilage in the right hip consistent with arthritis. ASSESSMENT: ICD-10-CM 1. Chronic right hip pain M25.551 G89.29 2. Sacral insufficiency fracture, initial encounter ([facility]) M84.48XA 3. Closed fracture of multiple pubic rami, right, [place] encounter [place] [place] S32.591A calcitonin, salmon, (Miacalcin) [...] Dr. Sheth/ashley Sheth D.O. documented in this encounterParkland Health [id number] History of Present illness Narrative* Cleve Sheth DO - 06/05/2024 1:30 PM EDT Images from the original note were not included. HISTORY OF PRESENT ILLNESS: Sheila Mac is an 74 y.o. @ female. Chief complaint RT hip pain New problem: RT hip pain. Dr Thompson referral. XR [facility] 06/03/24 RT hip pain x 2-3 months, worsened on 05/31 after going to the grocery store. Denies injury. She hadinjections at [facility] in April without relief. She saw Dr Thompson 06/02 and 06/04, given IM injections-no relief. She is having difficulty walking, using a walker. Pain with WB. Pain in the buttock, hamstringand inner thigh. Pain can be aching and sharp. Difficulty with sit to stand. Pain 1/10 at rest, goes to 10+/10 with WB. 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 Taking TYL, using icy hot. Saw Dr Thompson 06/02 and 06/04. XR done at [facility] 06/02/24. Using hot icy hot. Given IM [...] HISTORY: Past Medical History: Diagnosis Date Diabetes ([facility]) Diverticulitis Gastric ulcer GERD (gastroesophageal reflux disease) HTN (hypertension) ([facility]) Osteoporosis ([facility]) Pancreatitis Rheumatic fever ALLERGIES: Allergies Allergen Reactions [...] report of the right hip from the [facility] dated May of 2024 slightnarrowing of [...] Dr. Sheth/ashley Sheth D.O. documented in this encounterParkland Health [id number] Telephone encounter Note* Telephone Encounter - Bella Saavedra - 06/05/2024 11:40 AM EDT $40.00 copay / Prior auth needed. Parkland Health [id number] Miscellaneous Notes* Telephone Encounter - Bella Saavedra - 06/05/2024 11:40 AM EDT $40.00 copay / Prior auth needed. documented in this encounterParkland Health [id number] Procedure [facility]05-28-2024 Procedure [facility]04-07-2023 NoteCardiology Follow Up Progress Note Chief Complaint: [...] agreeable. She will be (more content not included)...[facility] 12-15-2022 NoteReview of Systems Cardiovascular: Positive for leg swelling. Respiratory: Positive for shortness of breath. Skin: Positive for color change. Neurological: Positive for headaches. All other systems reviewed and are negative.[facility] 07-25-2022 NotePROCEDURE: MRA NECK WO CON [...] authenticated by: DANIEL PINEDA Date: 2022-07-25 13:25[facility] [id number] NotePROCEDURE: XR FOOT LT MIN 3 VIEWS HISTORY: Pain in left foot ; acute plantar pain COMPARISON: None. FINDINGS: BONES:No fracture, acute abnormality, or significant arthropathy. SOFT TISSUES:No visible soft tissue swelling. EFFUSION:None visible. OTHER: Negative. IMPRESSION: 1. No acute abnormality, significant degenerative changes, or findings to account for patient's symptoms. Electronically authenticated by: DANIEL PINEDA Date: 2022-05-11 12:51[facility] [id number] NotePROCEDURE: XR KNEE LT 4V or > COMPARISON: None. HISTORY: Osteoarthritis FINDINGS: BONES:No fracture, acute abnormality, or significant arthropathy. SOFT TISSUES:Negative. No visible soft tissue swelling. EFFUSION:Moderate suprapatellar joint effusion OTHER: Negative. IMPRESSION: Moderate joint effusion Electronically authenticated by: GODWIN BECK Date: 2022-02-14 17:30[facility] HospitalEvaluation noteNo assessment information availableWhite Hospital Work Phone: Evaluation note* Diagnosis Onset Date Resolution Status Duodenal diverticulum acuteHiatal herniaacuteIBS (irritable bowel syndrome)acuteScreening for colon canceracute [facility] Work Phone: Evaluation note* Diagnosis Chronic right hip pain- Primary Sacral insufficiency fracture, initial encounter ([facility]) Closed fracture of multiple pubic rami, right, initial encounter ([facility]) documented in this encounter [facility] HealthcareEvaluation note* Diagnosis Paresthesia- Primary Disturbance of skin sensation documented in this encounter [facility] HealthcareEvaluation note* Diagnosis Chronic right hip pain- Primary Sacral insufficiency fracture with routine healing, subsequent encounter Closed fracture of multiple pubic rami, right, initial encounter ([facility]) documented in this encounter [facility] HealthcareEvaluation note* Diagnosis Cervical radiculopathy- Primary Brachial neuritis or radiculitis nos Paresthesia Disturbance of skin sensation documented in this encounter [facility] HealthcareEvaluation note* Diagnosis Left hand pain- Primary Pain in soft tissues of limb Primary osteoarthritis of hand, unspecified laterality documented in this encounter [facility] HealthcareEvaluation note* Diagnosis Chronic right hip pain- Primary documented in this encounter [facility] HealthcareEvaluation note* Diagnosis Vomiting in adult- Primary History of gastric ulcer Chronic GERD Hiatal hernia Diaphragmatic hernia without mention of obstruction or gangrene Dysphagia, unspecified type documented in this encounter [facility]* Diagnosis Bright red blood per rectum- Primary Hemorrhage of rectum and anus documented in this encounter [facility]* Diagnosis Incontinence of feces, unspecified fecal incontinence type- Primary Diverticular stricture ([facility]) documented in this encounter [facility] SystemHistory and physical note Author Ben Sanchez [facility] February 05, 2024 1:08pmNote Date/TimeMay 2023 1:08pmHenniker[place] [address] Gastroenterology H&P Signed Patient: Sheila Mac MR#: [id number] : 1950 Acct:[id number] Age/Sex: 73 / F Adm Date: 4 Loc: Room: Type: [facility] Attending Dr: Ben Sanchez MD Copies to: MD Krzysztof Crisostomo MD~ Date of Service: 02/05/2024 HISTORY & PHYSICAL: Patient's history with special attention to the cardiovascular, pulmonary systems and the current problem was reviewed with the patient immediately prior to the procedure. Present medications and doses reviewed in the EMR. Allergies and pertinent laboratory tests were also re viewedat this time in the EMR. The physical [...] signed by Ben Sanchez MD> 02/05/24 1308 [facility] Work Phone: History and physical note Author Ben Sanchez [facility] March 26, 2024 10:37amNote Date/TimeJuly 2023 10:37[place] [address] Gastroenterology H&P Signed Patient: Sheila Mac MR#: [id number] : 1950 Acct:[id number] Age/Sex: 73 / F Adm Date: 4 Loc: Room: Type: [facility] Attending Dr: Ben Sanchez MD Copies to: MD Krzysztof Crisostomo MD~ Date of Service: 03/26/2024 HISTORY & PHYSICAL: Patient's history with special attention to the cardiovascular, pulmonary systems and the current problem was reviewed with the patient immediately prior to the procedure. Present medications and doses reviewed in the EMR. Allergies and pertinent laboratory tests were also re viewedat this time in the EMR. The physical [...] <Electronically signed by Ben Sanchez MD> 03/26/[address] [place] [address] Ctr Work Phone: Hospital Discharge instructionsAmbulatory Orders* Referral to Orthopedic Surgery Location: None [facility] Work Phone: InstructionsNot on filedocumented in this encounter [facility] SystemInstructionsNot on filedocumented in this encounter [facility] SystemInstructionsNot on filedocumented in this encounter [facility] SystemInstructionsNot on filedocumented in this encounter [facility] SystemInstructions* Attachments The following attachments cannot be sent through Care Everywhere. * Hemorrhoids (Korean) documented in this encounterProMedica Health SystemInstructionsNot on file documented in this encounterProCentral Alabama Va [facility] Health SystemReason for referral (narrative)No reason for referral information availableVeterans Health Administration Ctr Work Phone: Reason for visit Narrative* Consultation (Routine) - ClosedSpecialtyDiagnoses / ProceduresReferred By ContactReferred To Contact Neurology Diagnoses Brachial plexopathy Ulnar neuropathy of left upper extremity Procedures [place] OFFICE/OUTPATIENT [facility] 60 MINUTES Cleve Sheth DO [address] [facility] [address] [place] [address] Phone: tel: fax: Daniel Patiño MD [address] [place] [address] Phone: tel: fax: Referral Patricia DateExpiration DateVisits RequestedVisits [id number] Consult and Treat / [facility] Healthcare Summary Purpose Family History No Family History Records Found Relationship Condition Age at Onset Recorded Date/T elizabeth father Unknown Not SpecifiedDeceasedUnknown Relationship Condition Age at Onset Recorded Date/T elizabeth father Unknown motherDeceasedUnknown Advance Directives No Advanced Directives Records Found Advance Directive Response Recorded Date/ Time Advance Directives No January 21 3:15pm Advance Directive Response Recorded Date/ Time Advance Directives No February 20 11:35am Chief Complaint and Reason for Visit Chief Complaint duodenal diverticula /abnormal ct duodenal diverticula/abnormal ct Chief Complaint duodenal diverticula /abnormal ct duodenal diverticula/abnormal ct follow up egdReason for VisitDuodenal diverticulum Hiatal hernia IBS (irritable bowel syndrome) Screening for colon cancer Chief Complaint duodenal diverticula /abnormal ct duodenal diverticula/abnormal ct follow up egd Screening ScreeningReason for VisitDuodenal diverticulum Hiatal hernia IBS (irritable bowel syndrome) Screening [...] 022024 9:53am CONSULT DR CALVERT [place] [facility] [place] 1:29pm Reason for Visit [...] 022024 9:53am CONSULT DR NEHAL ORTIZ [place] [facility] [place] 2024 1:29pm 1 mo fu [...] 022024 9:53am CONSULT DR NEHAL ORTIZ [place] [facility] [place] 2024 1:29pm 1 mo fu trigger points/ consider shoulde r inj May 04, 2025 8:05am Unknown May 13, 2025 10:46am Additional Source Comments INFORMATION SOURCE (unrecogn ized section and content) DATE CREATED AUTHOR 11/24/2018 [facility] DATE CREATED AUTHOR AUTHOR'S ORGANIZ ATION 12/19/2022 [facility] DATE CREATED AUTHOR AUTHOR'S ORGANIZ ATION 01/18/2023 [facility] DATE CREATED AUTHOR AUTHOR'S ORGANIZ ATION 08/04/2024 [facility] DATE CREATED AUTHOR AUTHOR'S ORGANIZ ATION 08/12/2024 [facility] DATE CREATED AUTHOR AUTHOR'S ORGANIZ ATION 04/02/2025 [facility] DATE CREATED AUTHOR AUTHOR'S ORGANIZ ATION 05/15/2025 [facility] DATE CREATED AUTHOR AUTHOR'S ORGANIZ ATION 06/24/2025 [facility] Care Teams (unrecognized sec tion and content) Team Status: Active Member Role Status Dates Krzysztof Thompson MD Primary Care Provider Active Team Status: Inactive Member Role Status Dates Krzysztof Thompson MD Primary Care Provider Active Start: February 19, 2025 End: February 19, 2025Warren Garcia ProviderActiveStart: February 19, 2025 End: February 19, 2025 Team Status: Inactive Member Role Status Dates Krzysztof Thompson MD Primary Care Provider Active Start: February 26, 2025 End: February 26, 2025Warren Garcia ProviderActiveStart: February 26, 2025 End: February 26, 2025 Team Status: Inactive Member Role Status Dates Krzysztof Thompson MD Primary Care Provider Active Start: March 11, 2025 End: March 11, 2025Warren Simons ProviderActiveStart: March 11, 2025 End: March 11, 2025August Garcia ProviderActiveStart: March 11, 2025 End: March 11, 2025 Team Status: Active Member Role Status Dates Krzysztof Thompson MD Primary Care Provider Active Start: March 11, 2025 Warren Simons ProviderActiveStart: March 11, 2025 Team Status: Active Member Role Status Dates Ben Sanchez MD Attending Provider Active S tart: January 16, 2024 Team Status: Inactive Member Role Status Dates Ben Sanchez MD Attending Provider Active S tart: February 05, 2024 End: February 04Cedric Sanders Care ProviderActiveStart: February 05, 2024 End: February 05, 2024 Team Status: Active Member Role Status Dates Ben Sanchez MD Attending Provider, Other Provide r Active Start: February 05, 2024 Cedric Townsend Care ProviderActiveStart: February 05, 2024 Team Status: Inactive Member Role Status Dates Ben Sanchez MD Attending Provider Active S tart: February 19, 2024 End: February 18Cedric Sanders Care ProviderActiveStart: February 19, 2024 End: February 19, 2024 Team Status: Inactive Member Role Status Dates Krzysztof Thompson MD Primary Care Provider Active Start: March 26, 2024 End: March 26Warren Valentin ProviderActiveStart: March 26, 2024 End: March 26, 2024 Team Status: Active Member Role Status Dates Krzysztof Thompson MD Primary Care Provider Active Start: March 26, 2024 Warren Crisostomo Provider, Other ProviderActiveStart: March 26, 2024 Team MemberRelationshipSpecialtyStart DateEnd Date Krzysztof Thompson MD [address] [place] [address] PCP - GeneralFamily Medicine01/09/24Team MemberRelationshipSpecialtyStart DateEnd Date Krzysztof Thompson MD [address] [place] [facility] [address] PCP - GeneralFamily Medicine01/09/24Team MemberRelationshipSpecialtyStart DateEnd Date Krzysztof Thompson MD [address] [place] [address] PCP - GeneralFamily Medicine01/09/24Team MemberRelationshipSpecialtyStart DateEnd Date Krzysztof Thompson MD [address] [place] [facility] [address] PCP - GeneralFamily Medicine01/09/24Team MemberRelationshipSpecialtyStart DateEnd Date Krzysztof Thompson MD [address] [place] [facility] [address] PCP - GeneralFamily Medicine01/09/24 Raven Sesay DO [address] [place] [address] Referring YtkaugnuxZdiggetnx25/4/24Team MemberRelationshipSpecialtyStart DateEnd Date Krzysztof Thompson MD [address] [place] [address] PCP - GeneralFamily Medicine01/09/24 Raven Sesay DO [address] [place] [address] Referring TpwclcgidNnfmbiymc51/4/24Team MemberRelationshipSpecialtyStart DateEnd Date Krzysztof Thompson MD [address] [place] [address] PCP - GeneralFamily Medicine01/09/24 Raven Sesay DO [address] [place] [address] Referring UonidtndaRhjvzvqmq89/4/24Team MemberRelationshipSpecialtyStart DateEnd Date Krzysztof Thompson MD [address] [place] [address] PCP - GeneralFamily Medicine01/09/24 Raven Sesay DO [address] [address] Referring UzcjakvlrWarfntxtm22/4/24Team MemberRelationshipSpecialtyStart DateEnd Date Krzysztof Thompson MD [address] [place] [address] [facility] - [facility]01/09/24 Raven Sesay DO [address] [place] [address] Referring TrgncubxxJjzmuussi98/4/24Team MemberRelationshipSpecialtyStart DateEnd Date Krzysztof Thompson MD PCP - General7/02/24Team MemberRelationshipSpecialtyStart DateEnd Date Krzysztof Thompson MD PCP - General7/617Team MemberRelationshipSpecialtyStart DateEnd Date Krzysztof Thompson MD PCP - General7/6/17Team MemberRelationshipSpecialtyStart DateEnd Date Krzysztof Thompson MD PCP - General7/6/17Team MemberRelationshipSpecialtyStart DateEnd Date Krzysztof Thompson MD PCP - General03/15/17 Team Status: Inactive Member Role Status Fifi Thompson MD Primary Care Provider Active Start: March 11, 2025 End: March 11omas Sheryl ALEJANDRAttending ProviderActiveStart: March 11, 2025 End: March 11, 2025 Team Status: Inactive Member Role Status Fifi Thompson MD Primary Care Provider Active Start: March 26, 2025 End: March 26, 2025Dastefan Dash Nehal ALEJANDRAttending ProviderActiveStart: March 26, 2025 End: March 26, 2025 Team Status: Inactive Member Role Status Fifi Thompson MD Primary Care Provider Active Start: April 02, 2025 End: April 02omas Florobert MDAttending ProviderActiveStart: April 02, 2025 End: April 02, 2025 Team Status: Inactive Member Role Status Fifi Thompson MD Primary Care Provider Active Start: April 27, 2025 End: April 27omas Garfieldedmond ALEJANDRAttending ProviderActiveStart: April 27, 2025 End: April 27, 2025 Team Status: Inactive Member Role Status Fifi Thompson MD Primary Care Provider Active Start: May 04, 2025 End: May 04omas Florobert ALEJANDRAttending ProviderActiveStart: May 04, 2025 End: May 04, 2025 Team Status: Inactive Member Role Status Fifi Thompson MD Attending Provider Active Sta rt: May 13, 2025 End: May 13, 2025Team MemberRelationshipSpecialtyStart DateEnd Date Krzysztof Thompson MD PCP - General03/15/17 Reason for Visit (unrecogniz ed section and content) ReasonCommentsPainReasonOnset DateCommentsPT Initial Eval4Contacted and offered to schedule PT eval per Dr. Thompson. She said she'd like to wait till after she is seen by Dr. Sheth today; she said she'd contact.Call Back06/06/2024 She noted that she will be having a CAT scan and Dr. Sheth has told her to hold-off till post.I said if I do not hear from her I will contact mid next week.FU4Contacted to request update per Meryl and she said she was not advised to begin w/ PT due to fractures in bones.ReasonCommentsFollow-up ReasonCommentsHeartburnGERD, referred by Kamla Luciano, CNPReasonCommentsRectal BleedingRectal bleeding, last colon with Dr. Sanchez at [facility] in 4Reason CommentsEncopresisBowel Incontinence, last seen 12/25/24 Goals (unrecognized section and content) Goals may [...] BE BASED ON THE PRIMARY CLINICAL RECORDS. [employer] provides no warranty or guarantee of the accuracy or completeness of information in this document.
--- NOTE | 2025-07-14 08:25 | CT_ITS ---
The [address] [address] Patient Name: EDIN SAMANIEGO MRN: [id number] date: 1950 Sex: F Assigned Patient Location: LAB Current Patient Location: LAB Accession/Order Number: [id number] Exam Date: 07/14/2025 09:31 Report Date: 07/14/2025 10:12 At the request of: KRZYSZTOF THOMPSON MD Procedure: CT abdomen pelvis wo con CT ABDOMEN AND PELVIS WITHOUT CONTRAST COMPARISON: 04/29/2024 CLINICAL DATA: Recurrent urinary tract infections and pelvic pressure. Spiral axial images were obtained through the abdomen and pelvis with oral contrast only. This CT exam was performed using one or more following dose reduction techniques: Automated exposure control, adjustment of the mA and/or kV according to patient size, or use of iterative reconstruction technique. Limited cuts through the lung bases show atelectasis and/or scarring. There is mild bronchiectasis and subpleural blebs. There is a tiny hiatal hernia. Evaluation of the intra-abdominal organs is slightly limited by the absence of contrast. There is minor cholelithiasis. No intrahepatic masses are seen. There are calcified hepatic and splenic granulomas. The pancreas and adrenal glands show no obvious acute findings. No renal calculi or hydronephrosis are seen. No ureteral dilatation or stones are identified. There is a tiny exophytic hypodensity at the superior pole of the left kidney that might be a cyst. There is atherosclerotic plaque involving a tortuous aorta, iliac and some of the visceral arteries. No enlarged lymph nodes or ascites are seen. The small bowel loops are not distended. A duodenal diverticulum is again seen. There is moderate stool throughout the colon. Colonic diverticula are visualized. Thoracolumbar levoscoliotic curvature and degenerative changes are present spine, greatest at the lower facets. Images through the pelvis show no dilated small bowel. The appendix is surgically absent. There is stool at the distal colon. There is a segment of sigmoid colon which is under distended and has apparent wall thickening. Additional colonic diverticula are seen. There is minor perisigmoid stranding. Appearance is similar to the prior and may be chronic though correlation is recommended to exclude any possibility of active inflammation. The uterus is not seen and is presumed to be surgically absent. The urinary bladder shows no abnormalities for the degree of distention. There are several pelvic phleboliths. No ascites is noted. CT/CT abdomen pelvis wo con IMPRESSION: CHRONIC APPEARING BIBASILAR PARENCHYMAL CHANGES. TINY HIATAL HERNIA. CHOLELITHIASIS. NO BOWEL OR URINARY TRACT OBSTRUCTION. MODERATE COLONIC STOOL. DIVERTICULAR DISEASE WITH SUSPECTED MINOR CHRONIC PERISIGMOID STRANDING THOUGH CLINICAL CORRELATION IS STILL SUGGESTED. NO OTHER ACUTE FINDINGS. Impression dictated by: Ling Fields M.D. 07/14/2025 10:12 AM Dictation Location: [place] [address] Electronically authenticated by: [id number] Y Date: 07/14/2025 10:12
[2025-07-14 08:30] LABS: Estimated GFR (African America 26 (>=60 mL/min/1.73m^2); Estimated GFR (Non-African Ame 21 (>=60 mL/min/1.73m^2)
== END 2025-07-14 08:13 | disposition home or self-care (01) ==
LOC: LAB 08:12
PROVIDERS: Pathology Anatomic Pathology & Clinical Pathology; PCP Family Medicine; Visit Provider Family Medicine
DX: K57.30 Diverticulosis of large intestine without perforation or abscess without bleeding (principal); R10.9 Unspecified abdominal pain; K80.20 Calculus of gallbladder without cholecystitis without obstruction
CPT/HCPCS: 36415; 74176; 82565

== ENCOUNTER 2025-07-20 08:44 | Outpatient (OUT) | payer MEDICARE, SELFPAY ==
--- NOTE | 2025-07-20 | NM_ITS ---
The [address] [address] Patient Name: EDIN SAMANIEGO MRN: [id number] date: 1950 Sex: F Assigned Patient Location: NH Current Patient Location: Accession/Order Number: [id number] Exam Date: 07/20/2025 08:46 Report Date: 07/21/2025 08:09 At the request of: KRZYSZTOF THOMPSON MD Procedure: NM hepatobiliary w pharm HIDA SCAN WITH CCK CLINICAL HISTORY: Nausea, vomiting, diarrhea and weight loss. Cholelithiasis. COMPARISON: CT 07/14/2025 Following the intravenous administration of 4.9 mCi of technetium 99m labeled Mebrofenin, anterior imaging of the abdomen was performed out to 60 minutes. There is uniform distribution of radionuclide within the liver. The common duct is visualized at 15 minutes. There is gallbladder activity at 45 minutes. The small bowel is definitely seen by 30 minutes. The patient subsequently ingested 8 ounces of Ensure Plus and imaging was performed an additional 60 minutes. There is appropriate emptying of the gallbladder on the static and dynamic images. A time/activity curve was generated. The gallbladder ejection fraction is 17%. Normal is greater than 40%. NH/NH hepatobiliary w pharm IMPRESSION: GALLBLADDER DYSFUNCTION Impression dictated by: Ling Fields M.D. 07/21/2025 8:09 AM Dictation Location: [place] [address] Electronically authenticated by: [id number] Y Date: 07/21/2025 08:09
--- OUTSIDE RECORDS SUMMARY | 2025-07-20 08:48 | XMS_ITS | Clinical Summary ---
Author Organization [facility] Address [address], [address] [place] [address] Care Team Providers Care Gathering Machine Setter Name Role Phone Alvaro Harp MD Primary Care Provider [phone] Allergies Active AllergyReactionsCriticalityNoted GveaUguopzcwZxqvnra91/06/2018Morphine 07/16/20186461Wtkaydgfnxb81/06/2018 Medications MedicationSigDispense QuantityRefillsLast FilledStart DateEnd DateStatus gabapentin (NEURONTIN) 100 MG capsule Indications:Cervical radiculopathyTake 1 capsule by mouth 3 times daily for 30 days.. 90 capsule 07/12/2018Active sucralfate (CARAFATE) 1 GM tablet Take 1 g by mouth 4 times dailyActive pantoprazole (PROTONIX) 40 MG tablet Take 40 mg by mouth dailyActive carvedilol (COREG) 25 MG tablet Take 25 mg by mouth 2 times daily (with meals)Active Active Problems No known active problems Social History Tobacco UseTypesPacks/DayYears UsedDateSmoking Tobacco: Never AssessedSmokeless Tobacco: NeverCommentsUnknownSex and Gender InformationValueDate RecordedSex Assigned at BirthNot on fileLegal EufXrzngz54/10/2013 8:58 PM EST Gender IdentityNot on fileSexual OrientationNot on file Last Filed Vital Signs Vital SignReadingTime TakenCommentsBlood Pressure--Pulse--Jpdqcecyidl61.4 ??C (97.6 ??F)10/25/2018 2:46 PM ESTRespiratory Rate--Oxygen Saturation--Inhaled Oxygen Concentration--Mvlyrf58.6 kg (160 lb)10/25/2018 2:46 PM BQUDylvcv773 cm (5' 3 )10/25/2018 2:46 PM ESTBody Mass Index28.34010/25/2018 2:46 PM EST Plan of Treatment Not on file Insurance Care Teams Team MemberRelationshipSpecialtyStart Date Alvaro Harp MD [address] [place] [address] PCP - GeneralFamily Rckpzsyc70/17/18
--- OUTSIDE RECORDS SUMMARY | 2025-07-20 08:48 | XMS_ITS | Clinical Summary ---
Author Organization [facility] Address [address] [place] [address] Care Team Providers Care Electric Meter Repairer Name Role Phone Alvaro Harp MD Primary Care Provider [phone] Allergies Active AllergyReactionsCriticalityNoted QfrwFjbuzlpyLdmTjpeslgu69/14/2017 IV DYE Andfqmz10/06/2018Iodinated Contrast Media12/07/20222127Rqwvvdnf15/30/2023Morpholine GbcdxrdekZykrj16/14/2017Nsaids (Non-Steroidal Anti-Inflammatory Drug)12/07/2022 Rlodarokaml61/30/2023 Medications MedicationSigDispense QuantityRefillsLast FilledStart DateEnd DateStatus sucralfate (Carafate) 1 gram tablet Take 1 tablet by mouth in the morning, noon, at afternoon, at bedtime,.Active rosuvastatin (Crestor) 20 mg tablet Take 20 tablets by mouth in the morning.Active pantoprazole (ProtoNix) 40 mg EC tablet Take 40 mg by mouth in the morning and at bedtime.Active aspirin 81 mg chewable tablet Chew 81 mg 1 (one) time each day.Active atorvastatin (Lipitor) 20 mg tablet Take 20 mg by mouth in the morning.Active clopidogrel (Plavix) 75 mg tablet Take by mouth in the morning.Active carvedilol (Coreg) 3.125 mg tablet Indications:Benign hypertensive heart disease with heart failure (CMS/HCC)Take 1 tablet (3.125 mg) by mouth with breakfast and with evening meal. 180 tablet ctive blood pressure test kit-large kit Indications:Benign hypertensive heart disease with heart failure (CMS/HCC)1 kit if needed each day (check blood pressure 1-2 hours after morning and evening medications). 1 kit 12/15/2022ctive Active Problems ProblemNoted DateDiagnosed YqzbYvhzqujdfcfhwt14/03/7376Gfiyzclhcdjv06/03/2019 Chronic ggosgyhjeimq82/28/2018 Immunizations ImmunizationAdministration DatesNext DueCovid (Pfizer) Bivalent Booster =>12 YRS 07/13/2022Influenza, High Dose Seasonal, Preservative Free06/12/2022,06/18/2018, 06/14/2016,06/03/2015Influenza, High-dose Seasonal, Quadrivalent, Preservative Free05/30/2022,06/15/2021Influenza, injectable, quadrivalent, preservative free 05/22/2017Pfizer SARS-CoV-2 Wjeteckqofq09/03/2022,06/29/2021,11/17/2020, 10/12/2020Unspecified Sars-Cov-2 Lrgluoszihm56/03/2021 Social History Tobacco UseTypesPacks/DayYears UsedDateSmoking Tobacco: NeverSmokeless Tobacco: Never Tobacco Cessation:Counseling Given: Not Answered SD Safety & EnvironmentAnswerDate RecordedFear of Current or Ex-PartnerNot on file11/01/2023Emotionally AbusedNot on file11/01/2023hysically AbusedNot on file11/01/2023Sexually AbusedNot on file11/01/2023hysically or Sexually Abused Not on file11/01/2023CommentsUnknownSex and Gender InformationValueDate RecordedSex Assigned at AkcvdGhkobx92/30/2025 3:49 PM EDTLegal SexFemale 03/08/2022 10:03 PM EDTGender KafgzbqdXzmzsi30/30/2025 3:49 PM EDTSexual OrientationHeterosexual or Gwwgxtzq03/30/2025 3:49 PM EDT Last Filed Vital Signs Vital SignReadingTime TakenCommentsBlood Snpurigd507/9601/29/2023 1:03 PM EDT Syxdi293801/29/2023 1:03 PM EDTTemperature--Respiratory Rate--Oxygen Cbduslyzcf04% 01/29/2023 1:03 PM EDTInhaled Oxygen Concentration--Ujxlin26.1 kg (145 lb 12.8 oz)01/29/2023 1:03 PM SAQBjedzk705.6 cm (5' 4 )01/29/2023 1:03 PM EDTBody Mass Index25.03001/29/2023 1:03 PM EDT Plan of Treatment Health MaintenanceDue DateLast DoneCommentsDiabetes: Hemoglobin A1C1950 Medicare Annual Wellness (AWV)1950Diabetes: Retinopathy Screening 1958Depression Xpuxqppwo63/30/1960Diabetes: Urine Protein Screening 1967Adult Nhasbsl9004/08/1970Zoster Vaccines (1 of 2) Fall Risk Zktxkgxal09/30/2013COVID-19 Vaccine ( season)2025 07/13/2022, 02/10/2022, 02/10/2022, Additional history existsInfluenza Vaccine (#1)510/06/2024, 06/05/2023, 06/12/2022, Additional history exists QpgjwapdlanLzwoqevqpuat62/06/2013Colorectal Cancer ScreeningDiscontinued Pneumococcal Vaccine: 50+ DpzniJjfpkahak91/01/2015, 07/14/2013CT Colonography DiscontinuedFIT-DNADiscontinuedFITDiscontinuedFOBTDiscontinuedHIB VaccinesAged OutNo longer eligible based on patient's age to complete this topicHPV Vaccines Aged OutNo longer eligible based on patient's age to complete this topicIPV VaccinesAged OutNo longer eligible based on patient's age to complete this topic Meningococcal B VaccineAged OutNo longer eligible based on patient's age to complete this topicMeningococcal VaccineAged OutNo longer eligible based on patient's age to complete this topicRotavirus VaccinesAged OutNo longer eligible based on patient's age to complete this topicSigmoidoscopyDiscontinued Insurance Care Teams Team MemberRelationshipSpecialtyStart DateEnd Alvaro Harp MD [address] [facility] [place] [address] [facility]12/14/22
--- OUTSIDE RECORDS SUMMARY | 2025-07-20 08:49 | XMS_ITS | Encounter Summary ---
Author Organization [facility] Address [id number] [address] [place] [address] Care Team Providers Care Health Program Director Name Role Phone Alvaro Harp MD Primary Care Provider [phone] Encounter Details DateTypeDepartmentCare Team (Latest Contact Info)Ggjigpfhilu37/05/2025Telephone [facility] [address] [place] [address] Jena Camejo CMA Social History Tobacco UseTypesPacks/DayYears UsedDateSmoking Tobacco: NeverSmokeless Tobacco: NeverAlcohol UseStandard Drinks/WeekCommentsNo0 (1 standard drink = 0.6 oz pure alcohol)ChildcareAnswerDate DipgeoztQrnnqhwltJcdudgp26/12/2019EmploymentAnswer Date XydtmgisLiwszxnzabAqpmjwr52/12/2019Hunger ScreeningAnswerDate Recorded Within the past 12 months we worried whether our food would run out before we got money to buy more.Never True06/23/2025Within the past 12 months the food we bought just didn't last and we didn't have money to get more.Never True 06/23/2025Purpose - LifeAnswerDate RecordedPurpose and direction in lifeUnknown 1CommentsNoSex and Gender InformationValueDate RecordedSex Assigned at BirthNot on fileLegal BepUyclvd43/06/2015 12:11 PM EDTGender IdentityNot on fileSexual OrientationNot on filedocumented as of this encounter Miscellaneous Notes * Telephone Encounter - Jena Camejo CMA - 07/15/2025 10:33 AM EST Sheila called the office and she was confused on if she should keep her appointment with [facility] for her GI issues, or if she should try to find someone closer to her home. Her friend told her that their was a surgeon in [place] that is not a lot closer to her. I spoke on her speaker phone with her, her , & her son Aron who will be driving her to the appointment. He does know how to use [employer]. While she does understand it's her decision where she goes, she was asking for some advise. I told her if she stays in [facility] they'll have easy access to everything that she's had performed up to this point. She also has the appointment already scheduled where as she may have to wait longer to get in someplace else. It's completely her decision & I made sure she understands that. She wants to keep her appointment with Dr Covarrubias & I told her that they can call if they have any further questions or concerns * Telephone Encounter - Jena Camejo CMA - 07/15/2025 10:33 AM EST I did try to call the patient to see if she wants to add her son as an emergency contact. I left her a message to call us & let us know. documented in this encounter Plan of Treatment DateTypeDepartmentCare Team (Latest Contact Info)Ustdaxnrcof33/20/2025 11:00 AM ESTOffice Visit [facility] [address] [place] [address] [address] [place] [address] Bon Covarrubias MD [address] [facility] [place] [address] documented as of this encounter Visit Diagnoses Not on filedocumented in this encounter Care Teams Team MemberRelationshipSpecialtyStart DateEnd Date Alvaro Harp MD [facility] - General03/15/17documented as of this encounter
--- OUTSIDE RECORDS SUMMARY | 2025-07-20 08:49 | XMS_ITS | Clinical Summary ---
Author Organization [facility] Address [id number] [address] [place] [address] Care Team Providers Care Radiologic Technologist Name Role Phone Alvaro Harp MD Primary Care Provider [phone] Allergies Active AllergyReactionsCriticalityNoted XbzvHlnvsyxhBnyHczrsjxc41/14/2017 IV DYE Iodinated Contrast MediaAnaphylaxis,Other (See Comments)High12/07/2022Morphine Nausea And Vomiting,Mfgafeha67/06/2018Morpholine SqogbgcroXezbdxph32/14/2017 Nsaids (Non-Steroidal Anti-Inflammatory Drug)GI Chpymnlj93/08/2024enicillins NqiiXrl1403/23/2017 Medications MedicationSigDispense QuantityRefillsLast FilledStart DateEnd DateStatus acetaminophen (TYLENOL) 500 mg tablet Take 1 tablet (500 mg total) by mouth every 6 (six) hours as needed for pain. Active pantoprazole (PROTONIX) 40 mg EC tablet Take 1 tablet (40 mg total) by mouth in the morning.Active aspirin 81 mg Take 1 tablet (81 mg total) by mouth in the morning.02/19/2024ctive clopidogreL (PLAVIX) 75 mg tablet Take 1 tablet (75 mg total) by mouth in the morning.01/28/2024ctive metoprolol tartrate (LOPRESSOR) 50 mg tablet Take 1 tablet (50 mg total) by mouth in the morning.03/27/2024ctive sucralfate (CARAFATE) 1 gram tablet Take 1 tablet (1 g total) by mouth in the morning and 1 tablet (1 g total) at noon and 1 tablet (1 g total) in the evening and 1 tablet (1 g total) before bedtime.06/23/2025Discontinued(Therapy completed) Active Problems ProblemNoted DateDiagnosed DateChronic iavilbsfpena20/23/2017 Encounters DateTypeDepartmentCare KznaJsvfrcerdty43/05/2025Telephone [facility] [address] [place] [id number] BashirJenaRANDY 06/23/2025 10:30 AM EDTOffice Visit [facility] [address] [place] [address] Kaitlin Macdonald, [employer] ATTENDANT-CNMT Incontinence of feces, unspecified fecal incontinence type (Primary Dx); Diverticular stricture ([facility])06/23/2025Travelfrom Last 3 Months Family History Medical HistoryRelationNameCommentsNo Known ProblemsFatherHeart diseaseMother RelationNameStatusCommentsFatherDeceasedMotherDeceasedSon 1AliveSon 2Alive Social History Tobacco UseTypesPacks/DayYears UsedDateSmoking Tobacco: NeverSmokeless Tobacco: NeverAlcohol UseStandard Drinks/WeekCommentsNo0 (1 standard drink = 0.6 oz pure alcohol)ChildcareAnswerDate IkqoeekgIyhljlqpyHxuklig37/12/2019EmploymentAnswer Date YomygyzgPgvmhwkyfoUlirgfz12/12/2019Hunger ScreeningAnswerDate Recorded Within the past 12 months we worried whether our food would run out before we got money to buy more.Never True06/23/2025Within the past 12 months the food we bought just didn't last and we didn't have money to get more.Never True 06/23/2025Purpose - LifeAnswerDate RecordedPurpose and direction in lifeUnknown 1CommentsNoSex and Gender InformationValueDate RecordedSex Assigned at BirthNot on fileLegal CnyJsyvru84/06/2015 12:11 PM EDTGender IdentityNot on fileSexual OrientationNot on file Last Filed Vital Signs Vital SignReadingTime TakenCommentsBlood Ohsmzxkw888/8206/23/2025 10:08 AM EDT Ytkdw327806/23/2025 10:08 AM GCKWqfmwsnfdtg79.1 ??C (97 ??F)07/28/2024 7:16 AM EST Respiratory Mwvf3724 9:31 AM ESTOxygen Ivsvnsmskq54%07/28/2024 10:00 AM ESTInhaled Oxygen Concentration--Cwxfqm38.8 kg (118 lb 9.6 oz)06/23/2025 10:08 AM NNHPcfwaz724.6 cm (5' 4 )06/23/2025 10:08 AM EDTBody Mass Index20.36 06/23/2025 10:08 AM EDT Plan of Treatment DateTypeDepartmentCare Team (Latest Contact Info)Uitmlcftzen42/20/2025 11:00 AM ESTOffice Visit [facility] [address] [place] [phone] [place] [address] [place] [address], [address] [place] [address] Health MaintenanceDue DateLast DoneCommentsDepression Xgekpjswj69/30/1960Fall Risk Fkeqnfazs14/30/2013Zoster (Shingles) Vaccine (3 of 3), 08/11/2013RSV ( or age 60+ yrs) (1 - 1-dose 75+ series)3COVID- 19 Vaccine ( season)5109/12/2021, 02/10/2022, 06/29/2021, Additional history existsTobacco Nxordglrc10DTaP,Tdap and Td Vaccines (2 - Td or Tdap)Influenza VaccineCompleted 06/21/2025, 06/19/2024, 06/05/2023, Additional history exists Medical Devices Not on file Insurance Care Teams Team MemberRelationshipSpecialtyStart DateEnd Alvaro Harp MD PCP - General03/15/17
--- OUTSIDE RECORDS SUMMARY | 2025-07-20 08:49 | XMS_ITS | Clinical Summary ---
Author Organization [facility] Address [address] [place] [address] Care Team Providers Care Tax Manager Public Name Role Phone Alvaro Harp MD Primary Care Provider [phone] Elio Sesay DO Unavailable [phone] Allergies Active AllergyReactionsCriticalityNoted DateCommentsIodinated Contrast Media 05/24/20235970Gvarjwva24/14/5410MgwzeaPrhpSqf35/04/0105Uxbqmfvpdej04/14/2023 Medications MedicationSigDispense QuantityRefillsLast FilledStart DateEnd DateStatus aspirin 81 MG EC tablet Take 81 mg by mouth in the morning.Active atorvastatin (Lipitor) 40 MG tablet Take 40 mg by mouth in the morning.Active clopidogrel (Plavix) 75 MG tablet Take by mouth Daily.Active acetaminophen (Tylenol) 500 MG tablet Take 500 mg by mouth every 6 (six) hours if neededActive pantoprazole (ProtoNix) 40 MG EC tablet Take 40 mg by mouth at bedtimeActive metoprolol tartrate (Lopressor) 25 MG tablet 03/27/2024ctive sucralfate (Carafate) 1 g tablet TAKE 1 TABLET BY MOUTH ON AN EMPTY STOMACH FOUR TIMES DAILY03/18/2024ctive calcitonin, salmon, (Miacalcin) 200 UNIT/ACT nasal spray Indications:Closed fracture of multiple pubic rami, right, initial encounter ([facility])Administer 1 spray into one nostril Daily 3.7 mL 07/15/2024ctive gabapentin (Neurontin) 100 MG capsule Indications:Left hand painTake 1 capsule (100 mg) by mouth in the morning and 1 capsule (100 mg) before bedtime. 60 capsule ctive Active Problems ProblemNoted DateDiagnosed DateInternal derangement of right knee01/09/2024 Primary osteoarthritis of left knee01/09/20248833Fxhepfmynrsdyou07/14/2023 Gzplayesoksytv45/03/2019Chronic xtxaosiovvmt41/23/6364Ybptslzxxlwj43/19/2013 Degeneration of lumbar intervertebral disc05/27/2010Pure hypercholesterolemia 03/18/2010GERD (gastroesophageal reflux disease)02/11/2010Disorder of autonomic nervous mnnohb4602/11/2010Diabetes mellitus without fvzsveyrmugc69/04/2010Chronic systolic heart ucaicyj7502/11/2010therosclerosis of coronary dapgax9102/11/2010 Immunizations ImmunizationAdministration DatesNext DueInfluenza, High Dose Seasonal, Preservative Free06/12/2022,06/18/2018,06/14/2016,06/03/2015Influenza, High-dose Seasonal, Quadrivalent, Preservative Free05/30/2022,06/15/2021Influenza, Seasonal, Quadrivalent, Tdxqvyrfhp86/26/2023Influenza, injectable, quadrivalent, preservative free05/22/2017Influenza, seasonal, ehrwhzhhwk61/01/2014Influenza, seasonal, intradermal, preservative free06/30/2013Pneumococcal Conjugate PCV 13 09/10/2014Pneumococcal Polysaccharide YJLS964309/13/20120685HPMB-FwB-9, Unspecified 01/10/2021Zoster, live08/11/2013 Family History Medical HistoryRelationNameCommentsCancerFatherHeart diseaseMotherRelationName StatusCommentsFatherDeceasedMotherDeceasedOtherSpouseAlive Social History Tobacco UseTypesPacks/DayYears UsedDateSmoking Tobacco: Never Tobacco Cessation:Counseling Given: Not Answered Alcohol UseStandard Drinks/WeekCommentsNever0 (1 standard drink = 0.6 oz pure alcohol)CommentsUnknownSex and Gender InformationValueDate RecordedSex Assigned at BirthNot on fileLegal EjiInmsqa86/01/2023 8:31 PM EDTGender Identity Not on fileSexual OrientationNot on file Last Filed Vital Signs Vital SignReadingTime TakenCommentsBlood Dsoizgpv717/8208/11/2024 2:21 PM EST Sqajn917208/11/2024 2:21 PM ASSYjvduuoytlw00.3 ??C (97.4 ??F)01/09/2024 8:13 AM EDTRespiratory Rate--Oxygen Yzbwtrjcqe48%08/11/2024 2:21 PM ESTInhaled Oxygen Concentration--Hxltnu13.2 kg (132 lb 12.8 oz)08/11/2024 2:21 PM AHQHoswhm666 cm (5' 3 )05/09/2022 12:00 PM EDTBody Mass Index23.52005/09/2022 12:00 PM EDT Plan of Treatment Not on file Insurance * Guarantor: Sheila Mac AAccount TypeRelation to PatientDate of BirthPhone Billing AddressPersonal/WoxiidNpoy1950 [address] [address] Care Teams Team MemberRelationshipSpecialtyStart DateEnd Alvaro Harp MD PCP - GeneralFamily Medicine01/09/24 Elio Sesay DO [address] [place] [address] Referring IcfhalxedOtcytwush43/4/24
--- OUTSIDE RECORDS SUMMARY | 2025-07-20 08:49 | XMS_ITS | CCD ---
Author Organization [facility] Care Team Providers Care Osteology Teacher Name Role Phone PHYSICIAN, DEFAULT Admitting Unavailable [...] PROVIDER Attending Unavailable KRZYSZTOF THOMPSON Referring Unavailable MARIOY, KRZYSZTOF Primary Care Unavailable RODRIGUEZ RIVERA Attending Unavailable HOY ., DR BLANKENSHIP Attending Unavailable HOY ., DR BLANKENSHIP Consulting Unavailable HOY ., DR BLANKENSHIP Primary Care Unavailable HOY ., DR BLANKENSHIP [place] Unavailable DEERFIELD, DR GODWIN Cardona Consulting Unavailable HOY ., [...] Unavailable DONNA ., DR BLANKENSHIP Attending Unavailable MARIOY ., DR BLANKENSHIP Primary Care Unavailable MD Ben Sanchez Attending Provider [phone] MD Krzysztof Thompson Primary Care Provider [phone] Krzysztof Thompson MD Primary Care Provider [phone] Raven Sesay DO Unavailable KRZYSZTOF THOMPSON Primary Care Unavailable FREEMAN WARD [...] Provider [phone] Vasyl Calvert MD Attending Provider [phone] Rickie Saucedo MD Attending Provider Vasyl Calvert MD Referring Provider Yael Atwood MD Attending UnavailYael Riggs MD Attending UnavailRickie Feliciano MD Attending Provider [phone] Krzysztof Thompson MD Attending Provider [phone] Krzysztof Thompson Primary Care Unavailable Vasyl [...] Unavailable HOY, KRZYSZTOF M Primary Care Unavailable MACDONALDMALVINKAITLIN A Attending Unavailable HOY, KRZYSZTOF M Referring Unavailable HOY, KRZYSZTOF M Primary Care Unavailable Allergies Allergy ClassificationReported Allergen(s)Allergy TypeDate of OnsetReaction(s) Facility (17 sources)Morphine; Translations: [MORPHINE]Drug Dbiynst05-43-4906XcalgfjwKkq [facility] Repository (7 sources)NSAIDs; Translations: [NSAIDS (NON-STEROIDAL ANTI-INFLAMMATORY DRUG)] Drug allergy (disorder)02-12-7924GX BleedingThe [facility] (1 source)PenicillinDrug Swqjbpd33-56-1062Vxr [facility] Repository (1 source)predniSONEDrug Hupklda81-07-1820Phb [facility] Repository (2 sources)Iodinated Contrast- Oral and IV DyeDrug allergy (disorder)11-11-2014 [facility] Repository (20 sources)Penicillins; Translations: [PENICILLINS]Propensity to adverse reactions to drug (disorder)64-86-9862TzgfJjwyvryqmnMer[facility] (20 sources)IODINATED CONTRAST MEDIA; Translations: [IODINATED CONTRAST MEDIA] Propensity to adverse reactions to drug (disorder)43-28-4798Ncrnvvpwzrq, Other (See Comments)[facility] Repository (1 source)levoFLOXacinDrug Rrshuvh80-57-5510Uhx [facility] Repository (1 source)meloxicamDrug Xuodaox24-85-9338Mft [facility] Repository (12 sources)NSAIDS (Non-Steroidal Anti-Inflamma; Translations: [NSAIDS (Non- Steroidal Anti-Inflamma]Propensity to adverse ldkyopfsd45-56-6866Thgduaq Ulcer [facility] HospitalComment on above:pt has stomach ulcer (20 sources)MorphineDrug Haelbst32-69-6674Svxgtj And Vomiting, VomitingN[facility] (10 sources)Non-steroidal anti-inflammatory agentPropensity to adverse reactions 71-73-4958Crdd, GI BleedingNOMS Healthcare (9 sources)Contrast media; Translations: [DYE]Propensity to adverse reactions to drug (disorder)19-64-5931KvonjtkkBaaDjkxcz Repository (9 sources)MORPHOLINE ANALOGUES; Translations: [MORPHOLINE ANALOGUES]Propensity to adverse reactions to drug (disorder)60-26-8436TxjvpdbbHomAfizsu Repository (3 sources)Non-steroidal anti-inflammatory agentPropensity to adverse reactions to rpcy25-75-2730VG [facility]edingM[facility] (1 source)MorphineDrug Aqrafuk87-51-4957WsmlncnluMercy Health Lorain Hospital Repository Medications Current Medications MedicationDrug Class(es)DatesSig (Normalized)Sig (Original)acetaminophen 500 mg oral tablet (20 sources)take 1 tablet by mouth every six hours as needed for pain acetaminophen (TYLENOL) 500 mg tablet Take 1 tablet (500 mg total) by mouth every 6 (six) hours as needed for pain. Activeaspirin 81 mg delayed release oral tablet (20 sources)Platelet Aggregation Inhibitor, Nonsteroidal Anti-inflammatory Drug Start: 89-36-1544pxil 1 tablet by mouth in the morningaspirin 81 mg Take 1 tablet (81 mg total) by mouth in the morning. 02/19/2024 Activeclopidogrel 75 mg oral tablet (20 sources)P2Y12 Platelet InhibitorStart: 15-19-4809sxdn 1 tablet by mouth in the morningclopidogreL (PLAVIX) 75 mg tablet Take 1 tablet (75 mg total) by mouth in the morning. 01/28/2024 WgsnwnYhrajzwzblg-Vefbteuom-Jkwaccsp (8 sources)Start: 40-96-3170Tqgnbvlgbpi-Umeclidin-Vilanter (Trelegy Ellipta) 200-62.5-25 mcg blister with device Active 1 INH INHALATION Daily February 19, 2025 12:00am Complies with drug therapyStart: 95-64-8162szgklcocth 100 mg oral capsule (2 sources)Anti-epileptic AgentStart: 08-11-2024 End: 05-09-5140ezfk 1 capsule by mouth in the morninggabapentin (Neurontin) 100 MG capsule Indications: Left hand pain Take 1 capsule (100 mg) by mouth in the morning and 1 capsule (100 mg) before bedtime. 60 capsule 2 08/11/2024 11/09/2024 Activemetoprolol tartrate 50 mg oral tablet (20 sources)beta-Adrenergic BlockerStart: 82-98-2565mxri 1 tablet by mouth in the morningmetoprolol tartrate (LOPRESSOR) 50 mg tablet Take 1 tablet (50 mg total) by mouth in the morning. 03/27/2024 ActiveStart: 57-03-4867womhefcfvh tartrate (Lopressor) 25 MG tablet 03/27/2024 Activepantoprazole 40 mg delayed release oral tablet (20 sources)Proton Pump InhibitorStart: 01-28-2024 End: 62-03-1377dhhott calcitonin 200 unt/actuat nasal spray (16 sources)CalcitoninStart: 06-17-2024 End: 30-47-7452pooe 1 spray(s) nasal route in the morningcalcitonin, salmon, (MIACALCIN) 200 unit/actuation nasal spray Administer 1 spray into alternating n ostrils in the morning. 07/15/2024 08/14/2024 Activesucralfate 1000 mg oral tablet (20 sources)Aluminum ComplexStart: 94-78-2260oyfh 1 tablet by mouth four times dailysucralfate (Carafate) 1 g tablet TAKE 1 TABLET BY MOUTH ON AN EMPTY STOMACH FOUR TIMES DAILY 03/18/2024 ActiveStart: 46-50-6999ddkx 1 tablet by mouth twice dailyStart: 01-28-2024 End: 37-76-4368cdri 1 tablet by mouth four times dailySucralfate 1 gram tablet Discontinued 1 GM PO Four times daily January 28, 2024 12:00am February 19, 2024 9:15amtiZANidine 2 mg oral capsule (8 sources)Central alpha-2 Adrenergic AgonistStart: 31-73-9081oono 1 capsule by mouth twice daily as needed Completed/Discontinued Medications MedicationDrug Class(es)DatesSig (Normalized)Sig (Original)atorvastatin 20 mg oral tablet (20 sources)HMG-CoA Reductase InhibitorStart: 01-28-2024 End: 01-33-2649jxnt 1 tablet by mouth once daily at bedtimeAtorvastatin 20 mg tablet Discontinued 20 MG PO Daily at bedtime January 28, 2024 12:00am February 19, 2025 2:58pm End: 24-52-7785lsck 1 tablet by mouth in the morningatorvastatin (LIPITOR) 40 mg tablet Take 1 tablet (40 mg total) by mouth in the morning. 12/25/2024 Discontinued (Discontinued by another clinician)cetirizine hydrochloride 10 mg oral tablet (11 sources)Histamine-1 Receptor AntagonistStart: 01-28-2024 End: 59-61-6795eztz 1 tablet by mouth once daily in the morningCetirizine 10 mg tablet Discontinued 10 MG PO Every morning January 28, 2024 12:00am February 19, 2024 9:13am1 ml denosumab 60 mg/ml prefilled syringe (1 source)RANK Ligand Inhibitor End: 63-98-7177hrqxxb 60 mg by subcutaneous injection oncedenosumab (PROLIA) 60 mg/mL syringe injection Inject 60 mg under the skin once. 07/16/2024 Discontin ued (Discontinued by another clinician)lactulose 667 mg/ml oral solution (20 sources)Osmotic LaxativeStart: 02-19-2024 End: 61-65-6017qkyy 1 mL by mouth twice dailyLactulose 10 gram/15 mL solution Discontinued 30 ML PO Twice daily 1800 February 19, 2024 9:26am August 12, 2024 12:13pmStart: 01-28-2024 End: 22-72-0994udpp 1 mL by mouth once daily in the morningLactulose 10 gram/15 mL solution Discontinued 15 ML PO Every morning January 28, 2024 12:00am February 9:15amlidocaine 0.05 mg/mg medicated patch (1 source)Antiarrhythmic, Amide Local AnestheticStart: 06-13-2024 End: 38-85-2615jjiid 1 dose transdermal route once daily, then apply 1 dose transdermal route every twelve hourslidocaine (LIDODERM) 5 % Indications: Left hip pain Place 1 patch on the skin daily. Remove & Discard patch within 12 hours or as directed by MD Guerrero patch 06/13/2024 07/16/2024 Discontinued (Patient Never Started This Medication)linaclotide 0.145 mg oral capsule (16 sources)Guanylate Cyclase-C AgonistStart: 08-13-2024 End: 00-86-5948ljbj 1 capsule by mouth once dailyLinaclotide (Linzess) 145 mcg capsule Discontinued 145 MCG PO Daily August 13, 2024 1:00amJune 2024 2:58pmStart: 08-12-2024 End: 81-21-0774syrd 1 capsule by mouth once dailyLinaclotide (Linzess) 72 mcg capsule Discontinued 72 MCG PO Daily August 12, 2024 1:00am August 13, 2024 5:40pmrosuvastatin calcium 20 mg oral tablet (1 source)HMG-CoA Reductase Inhibitor End: 76-92-1414cvyp 1 tablet by mouth in the morningrosuvastatin (CRESTOR) 20 mg tablet Take 1 tablet (20 mg total) by mouth in the morning. 07/16/2024 Discontinued (Discontinued by another clinician)Sod Picosulf-Mag Ox-Citric Ac (10 sources)Start: 02-19-2024 End: 78-23-2689xphf 1 dose by mouth once daily in the eveningSod Picosulf-Mag Ox-Citric Ac (Clenpiq) 10 mg-3.5 gram- 12 gram/175 mL solution Discontinued 175 MLPO Daily 175 February 19, 2024 12:00am August 12, 2024 12:12pm take first dose at 3:00 pm the day before colonoscopy, take second dose at 9:00 pm the day before colonoscopy.Start: 18-05-7489yiam 1 dose by mouth once daily in [...] abdominal pain; Translations: [GENERALIZED ABDOMINAL PAIN] Onset: 18-87-1344FjtofbxeJjnjj and unspecified renal failure (1 source)Acute kidney failure, unspecified; Translations: [ACUTE KIDNEY FAILURE UNSPECIFIED]Onset: 68-44-0858KimljcuyIsele cerebrovascular disease (3 sources)Cerebral infarction, unspecified; Translations: [Cerebral infarction due to unspecified occlusion or stenosis of left carotid arteries]Onset: 82-38-0181FwpbvmbKjrebhml reactions (1 source)Radiographic dye allergy status; Translations: [RADIOGRAPHIC DYE ALLERGY STATUS]Onset: 92-44-9485AmooxsraPkthhkfr of urinary tract (1 source)Personal history of urinary calculi; Translations: [PERSONAL HISTORY OF URINARY CALCULI]Onset: 17-23-4094CwyxzuhiSdkzpxe kidney disease (1 source)Chronic kidney disease, unspecified; Translations: [CHRONIC KIDNEY DISEASE UNSPECIFIED]Onset: 67-50-3435DjgzwisWkgvmac obstructive pulmonary disease and bronchiectasis (4 sources)Chronic obstructive pulmonary disease, unspecified; Translations: [COPD UNSPECIFIED]Onset: 30-36-8433QdtlnxhKzhmcyahzx heart failure; nonhypertensive (20 sources)Unspecified diastolic (congestive) heart failure; Translations: [Acute combined systolic (congestive) and diastolic (congestive) heart failure] Onset: 73-64-7879GebmmrtGjbinphy atherosclerosis and other heart disease (15 sources)Coronary atherosclerosis; Translations: [Atherosclerotic heart disease of [place] coronary artery without angina pectoris]Onset: 02-11-2010 54-98-1305KjnhyalZkkcpnrhve and other anemia (1 source)Anemia, unspecified; Translations: [ANEMIA UNSPECIFIED]Onset: 38-67-3795MnwomktkQwkwiisdol and other anemia (1 source)Iron deficiency anemia, unspecified; Translations: [IRON DEFICIENCY ANEMIA UNSPECIFIED]Onset: 12-50-2597QxtaqedqCefdhkum mellitus without complication (16 sources)Type 2 diabetes mellitus without complications; Translations: [Diabetes mellitus without complication]Onset: 838891-91-5489Whipxfm Diabetes mellitus without complication (2 sources)Prediabetes; Translations: [Other abnormal glucose]Onset: 11-14-2022 EpisodicDisorders of lipid metabolism (17 sources)Pure hypercholesterolemia, unspecified; Translations: [Hyperlipidemia, unspecified]Onset: 293984-33-5745NnqnmnaOfiumkovgelohw and diverticulitis (20 sources)Diverticulum of duodenum; Translations: [Diverticulosis of small intestine without perforation or abscess without bleeding]Onset: 09-12-2018 17-35-9471MobrkciMmxderinuk disorders (20 sources)Gastro-esophageal reflux disease without esophagitis; Translations: [Gastroesophageal reflux disease]Onset: 476290-50-0111BjnvjurEfbqytqjm hypertension (6 sources)Essential (primary) hypertension; Translations: [ESSENTIAL (PRIMARY) HYPERTENSION]Onset: 57-88-6516KgniqwbRzytc and electrolyte disorders (2 sources)Dehydration; Translations: [Hyperkalemia]Onset: 41-39-5414Nfnnugcg Gastroduodenal ulcer (except hemorrhage) (6 sources)Gastric ulcer; Translations: [Gastric ulcer, unspecified as acute or chronic, without hemorrhage orperforation]20-23-2660XmmdgtxLxiamnetxtvlz symptoms and ill-defined conditions (1 source)Personal history of urinary (tract) infections; Translations: [PERS HX URINARY TRACT INFECTIONS]Onset: 78-04-0229QmkxdvbuQouuo valve disorders (1 source)Rheumatic tricuspid insufficiency; Translations: [RHEUMATIC TRICUSPID INSUFFICIENCY]Onset: 31-63-6810PprytnzQnqbdfukvzaz with complications and secondary hypertension (5 sources)Hypertensive heart disease with heart failure; Translations: [Hypertensive chronic kidney disease with stage 1 through stage 4 chronic kidney disease, or unspecified chronic kidney disease]Onset: 52-03-1584Xfoitna Intestinal obstruction without hernia (3 sources)Stricture of intestine; Translations: [Other intestinal obstruction unspecified as to partial versus complete obstruction]Onset: 06-23-2025 74-51-2714GbtrkqysSnnvi disorders and dislocations; trauma-related (15 sources)Derangement of right knee; Translations: [Unspecified internal derangement of right knee]Onset: 204359-44-5594CizvxkpZmgemlc and fatigue (1 source)Chronic fatigue, unspecified; Translations: [CHRONIC FATIGUE UNSPECIFIED]Onset: 46-19-7466ZtspycgNgnrcfk and fatigue (4 sources)Other fatigue; Translations: [OTHER FATIGUE]Onset: 57-07-4955Yjjoolol Nonspecific chest pain (5 sources)Chest pain, unspecified; Translations: [CHEST PAIN UNSPECIFIED]Onset: 52-99-0570UsvlbgmlIhvumgctlyl deficiencies (1 source)Vitamin D deficiency, unspecified; Translations: [VITAMIN D DEFICIENCY UNSPECIFIED]Onset: 32-17-8713ZuvwapwPdjaorkss or stenosis of precerebral arteries (5 sources)Occlusion and stenosis of unspecified carotid artery; Translations: [Occlusion and stenosis of bilateral carotid arteries]Onset: 53-53-3672Bjcpwil Osteoarthritis (18 sources)Unspecified osteoarthritis, unspecified site; Translations: [Osteoarthritis of left knee joint]Onset: hronic Osteoporosis (20 sources)Age-related osteoporosis without current pathological fracture; Translations: [Osteoporosis]Onset: 870366-77-7057KmptjkkCafcd acquired deformities (20 sources)Lumbar spondylolisthesis; Translations: [Spondylolisthesis, lumbar region]47-06-0832TtsxwkkqTzmqd aftercare (2 sources)oysterman (current) use of aspirin; Translations: [SHAKER TENDER (CURRENT) USE OF ASPIRIN]Onset: 28-34-9329UqhltkivGitwn aftercare (1 source)Other oysterman (current) drug therapy; Translations: [OTH SHAKER TENDER CURRENT DRUG THERAPY]Onset: 82-79-3247FcivatunMwgrh circulatory disease (1 source)Personal history of transient ischemic attack (TIA), and cerebral infarction without residual deficits; Translations: [PERS HX TIA AND CI NO RESID DEFICIT]Onset: 28-97-2932MlgskzjvZhvni connective tissue disease (4 sources)Pain in left foot; Translations: [PAIN IN LEFT FOOT]Onset: 01-15-2023 EpisodicOther connective tissue disease (1 source)Other specified soft tissue disorders; Translations: [OTHER SPEC SOFT TISSUE DISORDERS]Onset: 34-66-7836GgyazggbUyggu connective tissue disease (1 source)Fibromyalgia; Translations: [FIBROMYALGIA]Onset: 79-99-3904Rhfljhod Other connective tissue disease (2 sources)Pain of left hand; Translations: [Pain in left hand]08-11-2024 EpisodicOther connective tissue disease (20 sources)Muscle pain; Translations: [Myalgia, unspecified site]03-11-2025 EpisodicOther fractures (4 sources)Fracture of multiple pubic rami; Translations: [Other specified fracture of right pubis, initial encounter for closed fracture]06-17-2024 EpisodicOther gastrointestinal disorders (10 sources)Irritable bowel syndrome; Translations: [Irritable bowel syndrome without diarrhea]77-84-8382RiqrmkqLdjzd gastrointestinal disorders (2 sources)Irritable bowel syndrome without diarrhea; Translations: [Irritable bowel syndrome]46-32-1772WjbfbenTyofw gastrointestinal disorders (8 sources)Irritable bowel syndrome characterized by constipation; Translations: [Irritable bowel syndrome with constipation]14-52-6811EihmfxtRmhnl gastrointestinal disorders (2 sources)Incontinence of feces; Translations: [Full incontinence of feces] 90-01-1489HywsnwjzVhxco gastrointestinal disorders (1 source)Full incontinence of feces; Translations: [Full incontinence of feces] Onset: 57-09-3082LjdteblqSxhes gastrointestinal disorders (1 source)EncopresisOnset: 65-48-0308QckoxqqhJuuyq hematologic conditions (4 sources)Other specified abnormalities of plasma proteins; Translations: [OTH SPEC ABNORM PLASMA PROTEINS]Onset: 06-69-4275RsponhrrUgbon hereditary and degenerative nervous system conditions (1 source)Restless legs syndrome; Translations: [RESTLESS LEGS SYNDROME]Onset: 46-88-5700TzgstasUmggx lower respiratory disease (6 sources)Shortness of breath; Translations: [SHORTNESS OF BREATH]Onset: 45-04-8373ImclxqxdEztqf lower respiratory disease (3 sources)Dyspnea, unspecified; Translations: [Dyspnea, unspecified]Onset: 48-09-6482SghddrdyIcfzh lower respiratory disease (1 source)Personal history of pneumonia (recurrent); Translations: [PERSONAL HX OF PNEUMONIA RECURRENT]Onset: 49-52-3237XvztcfckZhatz nervous system disorders (3 sources)Aphasia; Translations: [APHASIA]Onset: 79-69-1104PttxacjBsqho nervous system disorders (15 sources)Disorder of autonomic nervous system; Translations: [Disorder of the autonomic nervous system, unspecified]Onset: 734399-83-9061XzmbgrrCzoht nervous system disorders (20 sources)Chronic pain; Translations: [Other chronic pain]34-89-1061Axtcnnr Other nervous system disorders (1 source)Ataxia, unspecified; Translations: [ATAXIA UNSPECIFIED]Onset: 64-01-9288RkkyuxiaBdojk nervous system disorders (3 sources)Paresthesia; Translations: [Paresthesia of skin]56-03-9553Skwfvktx Other non-traumatic joint disorders (1 source)Pain in left ankle and joints of left foot; Translations: [PAIN IN LEFT ANKLE]Onset: 35-78-9028SwpvnajhUqcze non-traumatic joint disorders (7 sources)Hip pain; Translations: [Pain in right hip]Onset: 06-13-2024 31-72-3061ZcccknocCgrlr non-traumatic joint disorders (1 source)Pain in left hip; Translations: [Pain in left hip]Onset: 06-13-2024 EpisodicOther non-traumatic joint disorders (13 sources)Pain in right shoulder; Translations: [Right shoulder pain]Onset: 194600-60-5242DzcpwzpyCxrit screening for suspected conditions (not mental disorders or infectious disease) (18 sources)Abnormal result of other cardiovascular function study; Translations: [Other specified abnormal findings of blood chemistry]Onset: 700019-34-4013RxymuumyHxtfr skin disorders (4 sources)Nonscarring hair loss, unspecified; Translations: [NONSCARRING HAIR LOSS UNSPECIFIED]Onset: 16-31-5945IsgsevtfXupyb upper respiratory infections (1 source)Acute sinusitis, unspecified; Translations: [ACUTE SINUSITIS UNSPECIFIED]Onset: 00-53-8786IpbzhwtfDpiwuwkztd disorders (not diabetes) (20 sources)Other chronic pancreatitis; Translations: [Chronic pancreatitis] Onset: 817010-97-4625VlgqhbpYwhekjztbnig fracture (4 sources)Stress fracture of sacrum; Translations: [Pathological fracture, other site, initial encounter for fracture]26-47-9667UtupesavScayxqen codes; unclassified (1 source)Acquired absence of both cervix and uterus; Translations: [ACQUIRED ABSENCE BOTH CERVIX AND UTERUS]Onset: 86-56-4031LonbagadCwyolkzl codes; unclassified (1 source)Personal history of other specified conditions; Translations: [PERSONAL HISTORY OTH SPEC CONDITION]Onset: 36-62-6975HcotjknkIdsuobhw codes; unclassified (5 sources)Edema, unspecified; Translations: [EDEMA UNSPECIFIED]Onset: 75-33-3295XqycjhgoZlbwkpsz codes; unclassified (6 sources)Postmenopausal state; Translations: [Asymptomatic menopausal state] 86-34-5054HrisliveHozjezhacmy; intervertebral disc disorders; other back problems (20 sources)Degeneration of lumbar intervertebral disc; Translations: [Degeneration of lumbar intervertebral disc]Onset: hronic Spondylosis; intervertebral disc disorders; other back problems (20 sources)Cervical radiculopathy; Translations: [Radiculopathy, cervical region]Onset: 704363-79-3071UwdotvdtFybumuiznvxs (2 sources)ABN STRESSOnset: 12-45-7338Sdncgitjzdih (1 source)CHRN KIDNEY DISEASE STG 3 UNSP; Translations: [CHRN KIDNEY DISEASE STG 3 UNSP]Onset: 20-01-3992Zyxoqxpwvgvt (1 source)CONTACT W/AND (SUSP) EXPOS COVID-19; Translations: [CONTACT W/AND (SUSP) EXPOS COVID-19]Onset: 46-86-7625Hebsgxauqqea (1 source)COUGH, UNSPECIFIED; Translations: [COUGH, UNSPECIFIED]Onset: 65-70-8304Pduoczufcdhi (1 source)PERSONAL HISTORY OF COVID-19; Translations: [PERSONAL HISTORY OF COVID-19]Onset: 38-41-3784Plynirvzsacu (1 source)PAIN RT HIPOnset: 10-90-2489Ekpzcrfziwwh (1 source)M54.6 - Pain in thoracic spineUnclassified (4 sources)R93.7 - Abnormal findings on diagnostic imaging of other parts of musculoskeletal systemViral infection (1 source)COVID-19; Translations: [COVID-19]Onset: 09-30-2022 Past or Other Problems Problem ClassificationProblemDateDocumented DateEpisodic/ChronicAbdominal hernia (16 sources)Diaphragmatic hernia without obstruction or gangrene; Translations: [Hiatal hernia]Onset: 972324-94-6332GvicobhiPsbwlyorrvpadu ulcer (except hemorrhage) (2 sources)H/O: gastric ulcer; Translations: [Personal history of peptic ulcer disease]Onset: 330224-13-6792NpcolrquBufcfvsqjbnbnneo hemorrhage (10 sources)Gastrointestinal hemorrhage; Translations: [Hemorrhage of anus and rectum]Onset: 155002-73-4554MqdvgaisVujdwo and vomiting (2 sources)Vomiting; Translations: [Vomiting, unspecified]Onset: 07-16-2024 09-89-9028MtfdzaalNhqhg bone disease and musculoskeletal deformities (15 sources)Costal chondritis; Translations: [Chondrocostal junction syndrome [Tietze]]Onset: 646729-88-2378KqpizkczUgdfg gastrointestinal disorders (4 sources)Constipation, unspecified; Translations: [CONSTIPATION UNSPECIFIED] Onset: 95-36-8430RazdcmtvTtabd gastrointestinal disorders (1 source)Dysphagia; Translations: [Dysphagia, unspecified]93-02-1252Zcawouda Other gastrointestinal disorders (1 source)Dysphagia, unspecified; Translations: [Dysphagia, unspecified]Onset: 05-92-1940ZxntxyjzYtinx gastrointestinal disorders (1 source)HeartburnOnset: 14-02-1947XvemaxjyGfodf nervous system disorders (4 sources)Dysarthria and anarthria; Translations: [DYSARTHRIA AND ANARTHRIA] Onset: 28-81-1753Yxsyucyj Results Test NameValueInterpretationReference RangeFacilityUrine Cultureon 05-13-2025 Bacteria identified Cx Nom (U)ORGANISM: Escherichia coli (O:ESCCOL) [place] Count 75,000 Aerobic RAIZA Charge (NMIC56) SUSCEPTIBILITY [...] RESISTANT TO ALL B-LACTAM DRUGS. PERFORMED BY: [facility] [address] [place] [address] PATHOLOGIST IT PROGRAMMER ARMINDA JUAN M.D.[facility] Physician GroupComment on above: Performed By: #### CUU #### [facility] [address] [place] [address] USAX-ray reportOrdered By: Elian Luna on 38-71-8458Denwi reportKETTERING [facility] [address] [place] [place] [address] XRay Report Signed Patient: Sheila Mac MR#: [id number] : 1950 Acct:[id number] Age/Sex: 74 / F ADM Date: 5 [place] [facility] [place]: Type: [facility] Attending Dr: Rickie Saucedo MD Copies [...] Elian Luna DO 04/02/251811 Signed By: 04/02/251812 [facility] HospitalXR [facility] RT min 2V*on 00-69-7427GJ shoulder RT min 2V*[facility] [address] [place] [address] XRay Report Signed Patient: Sheila Mac MR#: [id number] : 1950 Acct:[id number] Age/Sex: 74 / F ADM Date: 04/02/25 [place] [facility] [place]: Type: [facility] CLI Attending Dr: Rickie Saucedo MD [...] Luna M.D. 04/02/2025 6:13 PM Dictation Location: [facility] Transcribed By: [facility] 04/02/251812 Dictated By: Elian Luna DO 04/02/251811 Signed By: 04/02/[address] [place] [address] Physician GroupX-ray reportOrdered By: Ling Fields on 72-93-0796Bevgw reportKETTERING [facility] [place] [facility] [address] [place] [address] XRay Report Signed Patient: Sheila Mac MR#: [id number] : 1950 Acct:[id number] Age/Sex: 74 / F ADM Date: 5 Loc: [facility] Room: Type: [facility] CLI Attending Dr: Rickie Saucedo MD [...] Fields M.D. 03/11/2025 12:01 PM Dictation Location: [place] [address] Transcribed By: [facility] 03/11/25 1201 Dictated By: Ling Fields MD 03/11/25 1154 Signed By: 03/11/25 1201 [facility] Work Phone: XR thoracic spine 2Von 66-10-8081CY thoracic spine 2V [facility] [place] [address] [place] [place] [address] XRay Report Signed Patient: Sheila Mac MR#: [id number] 1859 : 1950 Acct:[id number] Age/Sex: 74 / F ADM Date: 03/11/25 Loc: [facility] Room: Type: [facility] Attending Dr: Rickie Saucedo MD Copies [...] Fields M.D. 03/11/2025 12:01 PM Dictation Location: [facility]-02 Transcribed By: [facility] 03/11/25 1201 Dictated By: Ling Fields MD 03/11/25 1158 Signed By: 03/11/25 1201[facility] Physician GroupXR cerv spine AP/LAT/FLX/EXTon 30-30-0648VV cerv spine AP/LAT/FLX/EXTKETTER[facility] [place] [address] [place] [address] XRay Report Signed Patient: Sheila Mac MR#: [id number] 1859 : 1950 Acct:[id number] Age/Sex: 74 / F ADM Date: 02/26/25 Loc: [place] Room: Type: [facility] Attending Dr: Vasyl Calvert MD Copies to: [...] Luna M.D. 02/26/2025 12:52 PM Dictation Location: [facility]-23 Transcribed By: [facility] 02/26/25 1252 Dictated By: Elian Luna DO 02/26/25 1249 Signed By: 02/26/25 1252[facility] Physician GroupXR lumbar spine 6V w bendingon 29-62-5866NF lumbar spine 6V w bendingKETTERING [facility] [place] [address] [place] [address] XRay Report Signed Patient: Sheila Mac MR#: [id number] 1859 : 1950 Acct:[id number] Age/Sex: 74 / F ADM Date: 02/26/25 Loc: [place] Room: Type: [facility] CL Attending Dr: Vasyl Calvert MD Copies to: [...] Luna M.D. 02/26/2025 2:14 PM Dictation Location: [place] [address] Transcribed By: [facility] 02/26/25 1414 Dictated By: Elian Luna DO 02/26/25 1411 Signed By: 02/26/25 1414[facility] Physician GroupSurgical Pathologyon 07-28-2024 Surgical PathologyNormalGrand Lake Joint Township District Memorial Hospitalca [facility] Community HospitalComment on above:Result Comment: [facility] [address] [place] [address] Surgical Pathology Consultation Patient Name:SHEILA MAC ADOB:1950 (Age: 74)Gender:FTaken:4Reported:07/31/2024hysician(s):Nidia White MD ([phone])Copy To: Rec. #:[id number]: #[id number] Final Pathologic Diagnosis 1. Duodenum biopsy first portion: Duodenal mucosa with no significant histopathologic changes. No active inflammation, celiac disease, parasites, granuloma or atypia. 2. Antrum biopsy: Gastric antral mucosa with no significant histopathologic changes. No intestinal metaplasia or dysplasia. No Helicobacter pylori organisms are seen on routine sections. Report Electronically Signed Out wak/07/31/2024Rodriguez Vargas MD Interpretation [place] [address], License number: [id number]. Clinical History Vomiting, gastroesophageal reflux, dysphagia Gross Description 1. Received in formalin labeled ASLINGER, #1: Duodenum is a single hathaway bit of soft tissue, 0.2 cmin greatest dimension. Filtered and submitted in a single cassette. (1, ns, [id number], m7) MG 2. Received in formalin labeled ASLINGER, #2: Antrum is a single hathaway bit of soft tissue, 0.3 cm in greatest dimension. Filtered and submitted in a single cassette. (1, ns, [id number], m7) MG [facility] [place]GR Specimen(s) Received 1: Duodenum biopsy first portion 2: Antrum biopsy Fee Codes(s): 1; 81707 2; 45546TYD 1 Extremeityon 29-70-7030K2 radiculopathy on the left, moderateNortheast [facility] HealthcareNVC 5-6 Nerveson 10-05-7373N7 radiculopathy on the left, moderateNorth Carolina Specialty HospitalXR HIP LT 2-3 VIEWS W OR WO PELVISon 82-19-8341JM HIP LT 2-3 VIEWS W OR WO [...] by Rod Muller MD on 06/13/2024 10:24 [facility], IncXR SPINE LUMBAR 2 OR 3 VWSon 09-51-7531KP SPINE LUMBAR 2 OR 3 VWSXR SPINE [...] consider follow-up MRI . Finalized by Rickie Gonzlaes MD on 06/13/2024 10:20 [facility], IncMR HIP RIGHT WO IV CONTRASTon 47-59-6248BX HIP RIGHT WO IV CONTRASTEXAM: MR HIP [...] x-rays of the right hip Hemal Sheth D.O.[facility] Specialty HospitalRadiology Study observation (narrative)[facility] HospitalColonoscopyOrdered By: Kera George on 03-26-2024 [facility] HospitalUS AYESHA DOP LEG LTon 37-27-9799NR AYESHA DOP LEG LT EXAMINATION: US AYESHA [...] Electronically authenticated by: DANIEL PINEDA Date: 2023-01-15 08:25[facility] HospitalXR ANKLE LT MIN 3 Von 54-45-9629GF ANKLE LT MIN 3 VEXAM: XR FOOT [...] Electronically authenticated by: GONZALEZ PATEL Date: 2023-01-15 07:[address] [place], [place] [address]VITAMIN B1 (THIAMINE)on 71-89-6542Vrf. B1, Whole Rehct480.1 nmol/YVszacf04.5-200.0The [facility] Will[facility] HospitalComment on above:Performed By: #### CBC #### [facility] [address] [place] [address] Dr. Ekta Vaughan 90-35-0756Sjtmjdcxglh peptide B (Bld) [Mass/Vol]980.0 pg/mL Critically high<=900.0The [facility] HospitalComment on above:Performed By: #### CVDTBH #### [facility] [address] [place] [address] Dr. Ekta Agarwal AUTO DIFFon 38-93-2902EXAV #0.1 103/ulNormal0.0-0.1The [facility] HospitalComment on above:Performed By: #### CMP #### [facility] [address] [place] [address] Dr. Ekta FunkBasophils/100 WBC (Bld)1.0 %Normal0.2-2.0The [facility] Comment on above:Performed By: #### CMP #### [facility] [address] [place] [address] Dr. Ekta Anthoyn #0.4 103/ulNormal0.0-0.7The [facility] HospitalComment on above: Performed By: #### CMP #### [facility] [address] [place] [address] Dr. Ekta Abebeosinophils/100 WBC (Bld)3.7 %Normal0.9-7.0The [facility] Comment on above:Performed By: #### CMP #### [facility] [address] [place] [address] Dr. Ekta Abeberythrocyte distribution width (RBC) [Ratio]13.2 %Ucmkfa32.0-15.0 [facility] HospitalComment on above:Performed By: #### CMP #### [facility] [address] [place] [address] Dr. Ekta FunkHematocrit (Bld) [Volume fraction]35.1 %Critically low36.0-48.0 [facility] HospitalComment on above:Performed By: #### CMP #### [facility] [address] [place] [address] Dr. Ekta FunkHemoglobin (Bld) [Mass/Vol]11.3 g/dLCritically low12.0-16.0[facility] HospitalComment on above:Performed By: #### CMP #### [facility] [address] [place] [address] Dr. Ekta Olivares #0.04 10e3/ulCritically high0.00-0.03[facility] Comment on above:Performed By: #### CMP #### [facility] [address] [place] [address] Dr. Ekta Olivares %0.4 %Normal0.0-0.5ThAshtabula County Medical CenterComment on above: Performed By: #### CMP #### [facility] [address] [place] [address] Dr. Ekta LundbergH #2.0 103/ulNormal1.2-3.8The [facility] HospitalComment on above:Performed By: #### CMP #### [facility] [address] [place] [address] Dr. Ekta Lundberghocytes/100 WBC (Bld)20.8 %Jeykdj01.5-60.0[facility] HospitalComment on above:Performed By: #### CMP #### [facility] [address] [place] [address] Dr. Ekta MaloneUAL DIFF REQNONormalThe [facility] HospitalComment on above: Performed By: #### CMP #### [facility] [address] [place] [address] Dr. Ekta Oconnor (RBC) [Entitic mass]32.3 reMctuuv55.7-34.0The [facility] HospitalComment on above:Performed By: #### CMP #### [facility] [address] [place] [address] Dr. Ekta Oconnor (RBC) [Mass/Vol]32.2 g/oIYfviac39.9-35.2The [facility] HospitalComment on above:Performed By: #### CMP #### [facility] [address] [place] [address] Dr. Ekta Oconnor (RBC) [Entitic vol]100.3 fLCritically high81.0-99.0The [facility] HospitalComment on above:Performed By: #### CMP #### [facility] [address] [place] [address] Dr. Ekta Rivas #0.8 103/ulNormal0.3-0.8The [facility] HospitalComment on above:Performed By: #### CMP #### [facility] [address] [place] [address] Dr. Ekta Perkinsocytes/100 WBC (Bld)7.9 %Normal1.7-12.0The [facility] Comment on above:Performed By: #### CMP #### [facility] [address] [place] [address] Dr. Ekta Salazar #6.4 103/ulNormal1.4-6.5The [facility] HospitalComment on above:Performed By: #### CMP #### [facility] [address] [place] [address] Dr. Ekta Dimasutrophils/100 WBC (Bld)66.2 %Vudjmi91.0-75.0The [facility] HospitalComment on above:Performed By: #### CMP #### [facility] [address] [place] [address] DrZoya Trevino mean volume (Bld) [Entitic vol]9.6 fLNormal9.5-13.5The [facility] HospitalComment on above:Performed By: #### CMP #### [facility] [address] [place] [address] Dr. Ekta FunkPLT255 103/wvIgkqnj379-353Xhq [facility] HospitalComment on above: Performed By: #### CMP #### [facility] [address] [place] [address] Dr. Ekta FunkRBC3.50 106/ulCritically low4.20-5.40The [facility] HospitalComment on above:Performed By: #### CMP #### [facility] [address] [place] [address] Dr. Ekta FunkWBC9.7 103/ulNormal4.0-11.0The [facility] HospitalComment on above: Performed By: #### CMP #### [facility] [address] [place] [address] Dr. Ekat Castaneda 13-82-1815WTJ [Mass/Vol]mg/LNormal<=1.0The [facility] HospitalComment on above:Performed By: #### CBC #### [facility] [address] [place] [address] Dr. Ekta Correa THYROXINE INDEX T7on 86-26-3593DCI0.33Anvgir4.30-4.50The [facility] HospitalComment on above:Performed By: #### CBC #### [facility] [address] [place] [address] Dr. Ekta FunkT3U32.0 %Qbtsja83.0-39.0The [facility] HospitalComment on above: Performed By: #### CBC #### [facility] [address] [place] [address] Dr. Ekta FunkT4 [Mass/Vol]8.20 ug/dLNormal4.80-13.90The [facility] Comment on above:Performed By: #### CBC #### [facility] [address] [place] [address] Dr. Ekta Shannon 33-07-3189Wiuz [Mass/Vol]61.0 ug/uNOyohcg64.0-170.0The [facility] HospitalComment on above:Performed By: #### B12FOL, VITAD, IRON #### [facility] [address] [place] [address] [address] Ekta FunkPROF 14(COMP METB)on 30-48-9466Fgcytbl [Mass/Vol]2.9 g/dL Critically low3.4-5.0The [facility] HospitalComment on above:Performed By: #### CVDTBH #### [facility] [address] [place] [address] [address] Ekta FunkAlbumin/Globulin [Mass ratio]0.6 {ratio}NormalThe [facility] HospitalComment on above:Performed By: #### CVDTBH #### [facility] [address] [place] [address] Dr. Ekta Cowart [Catalytic activity/Vol]101 U/OMmmtba29-878Bhx [facility] HospitalComment on above:Performed By: #### CVDTBH #### [facility] [address] [place] [address] [address] Ekta Mccormick [Catalytic activity/Vol]16 U/NVxjgou78-92Iat [facility] HospitalComment on above:Performed By: #### CVDTBH #### [facility] [address] [place] [address] [address] Ekta Harrison gap [Moles/Vol]14.6 mmol/LNormalThe [facility] Comment on above:Performed By: #### CVDTBH #### [facility] [address] [place] [address] [address] Ekta Gonzalez [Catalytic activity/Vol]15 U/IFoqesn87-86Fjy [facility] HospitalComment on above:Performed By: #### CVDTBH #### [facility] [address] [place] [address] [address] Ekta FunkBilirubin [Mass/Vol]0.4 mg/dLNormal0.2-1.0The [facility] Comment on above:Performed By: #### CVDTBH #### [facility] [address] [place] [address] [address] Ekta FunkCalcium [Mass/Vol]9.2 mg/dLNormal8.5-10.1The [facility] Comment on above:Performed By: #### CVDTBH #### [facility] [address] [place] [address] [address] Ekta FunkChloride [Moles/Vol]107 mmol/OMrtdkh97-561Jpk [facility] Comment on above:Performed By: #### CVDTBH #### [facility] [address] [place] [address] [address] Ekta FunkCO2 [Moles/Vol]24.4 mmol/LJuldjm67.0-32.0The [facility] Comment on above:Performed By: #### CVDTBH #### [facility] [address] [place] [address] Dr. Ekta FunkCreatinine [Mass/Vol]2.02 mg/dLCritically high0.55-1.02[facility] HospitalComment on above:Performed By: #### CVDTBH #### [facility] [address] [place] [address] [address] Ekta AbebeGFR-AF HATVTRCX91 mL/min/1.07f7Imfhwbtvpa low>=60The [facility] HospitalComment on above:Performed By: #### CVDTBH #### [facility] [address] [place] [address] [address] Ekta AbebeGFR-NON AF VIQEVQHD13 mL/min/1.19z9Hmlfxuhsmj low>=60The [facility] HospitalComment on above:Performed By: #### CVDTBH #### [facility] [address] [place] [address] [address] Ekta FunkGlobulin (S) [Mass/Vol]4.5 g/dLNormalThe [facility] HospitalComment on above:Performed By: #### CVDTBH #### [facility] [address] [place] [address] [address] Ekta FunkGlucose [Mass/Vol]103 mg/rZVnwlmi61-706Ygu [facility] Comment on above:Performed By: #### CVDTBH #### [facility] [address] [place] [address] Dr. Ekta FunkPotassium [Moles/Vol]5.0 mmol/LNormal3.5-5.1[facility] Comment on above:Performed By: #### CVDTBH #### [facility] [address] [place] [address] Dr. Ekta FunkProtein [Mass/Vol]7.4 g/dLNormal6.4-8.2[facility] Comment on above:Performed By: #### CVDTBH #### [facility] [address] [place] [address] Dr. Ekta Nolandium [Moles/Vol]141 mmol/DYonkrk284-107UcpMercy Health [facility] Hospital Comment on above:Performed By: #### CVDTBH #### [facility] [address] [place] [address] Dr. Ekta FunkUrea nitrogen [Mass/Vol]23.0 mg/dLCritically high7.0-18.0The [facility] HospitalComment on above:Performed By: #### CVDTBH #### [facility] [address] [place] [address] Dr. Ekta Spring nitrogen/Creatinine [Mass ratio]11.4 mg/mgNormalThe [facility] HospitalComment on above:Performed By: #### CVDTBH #### [facility] [address] [place] [address] Dr. Ekta Carmona 06-91-3470KPF4.793 uIU/mLNormal0.358-3.740[facility] HospitalComment on above:Performed By: #### CVDTBH #### [facility] [address] [place] [address] Dr. Ekta Lopez B12 AND FOLATEon 60-90-0629Gumdcevyd (Vitamin B12) [Mass/Vol] 175.0 pg/mLCritically ehd138.0-986.0The [facility] HospitalComment on above: Performed By: #### B12FOL, VITAD, IRON #### [facility] [address] [place] [address] [address] Ekta FunkFOLATE10.30 ng/mLNormal8.60-58.90[facility] on above:Performed By: #### B12FOL, VITAD, IRON #### [facility] [address] [place] [address] [address] Ekta FunkVITAMIN D 25 OHon 05-88-8698PRH D 25-OH24.0 ng/mLNormalMercy Health Urbana HospitalComment on above:Performed By: #### B12FOL, VITAD, IRON #### [facility] [address] [place] [address] [address] Ekta Pena [facility] GeneralComment on above: Result Comment: <20 ng/mL Vit D deficient 20 - <30 ng/mL Vit D insufficient 30 - 100 ng/mL Vit D sufficient >100 ng/mL Potential ToxicityPerformed By: #### B12FOL, VITAD, IRON #### [facility] [address] [place] [address] [address] Ekta Hope Visiton 22-93-8568Acaxnz-up [id number] Sheila Mac 1950 F Date Provider Department Center 12/15/2022 [facility] No family history on file Level of Service:24149 [place] OFFICE/OUTPATIENT ESTABLISHED MOD MDM 30-39 MIN Reason for Visit and Comments: Follow-up [235342] - Is here f/u stress test pt states she had Bruises all over both legs symptoms stated a week ago also stated legs are swollen and burningNormalUniversity of Formerly [facility] Community HospitalNM STRESS/REST MULTIon 51-39-5432GL STRESS/REST MULTIPatient: SHEILA MAC Exam Date: 12/05/2022 : 1950 Gender:F Ordering : DR KRZYSZTOF THOMPSON . Admission #: [id number] Family : Order #: [id number] CLICK HERE TO VIEW EXAM RADIOLOGY REPORT [...] by: Daniel Pineda M.D. on 12/06/2022 at 07:26[facility] HospitalECHOCARDIO M/2D COMPLETEon 45-57-8285WQOXRXGTDE M/2D COMPLETEPatient: SHEILA MAC Exam Date: 11/27/2022 : 1950 Gender:F Ordering : DR KRZYSZTOF THOMPSON . Admission #: [id number] Family : Order #: [id number] CLICK HERE TO VIEW EXAM ECHOCARDIOGRAM REPORT [...] by: Bong Gaspar M.D. on 11/27/2022 at 14:39NormalThAshtabula County Medical CenterCB AUTO DIFFon 22-95-0483GMMZ #0.0 103/ulNormal0.0-0.1[facility] HospitalComment on above:Performed By: #### INSULIN #### [facility] [address] [place] [address] Dr. Ekta Thorntonsophils/100 WBC (Bld)0.6 %Normal0.2-2.0[facility] Comment on above:Performed By: #### INSULIN #### [facility] [address] [place] [address] Dr. Ekta Anthony #0.3 103/ulNormal0.0-0.7ThAshtabula County Medical CenterComment on above: Performed By: #### INSULIN #### [facility] [address] [place] [address] Dr. Ekta Abebeosinophils/100 WBC (Bld)4.8 %Normal0.9-7.0[facility] Comment on above:Performed By: #### INSULIN #### [facility] [address] [place] [address] Dr. Yilan ChangErythrocyte distribution width (RBC) [Ratio]13.3 %Bcfcdl22.0-15.0 [facility] HospitalComment on above:Performed By: #### INSULIN #### [facility] [address] [place] [address] Dr. Ekta FunkHematocrit (Bld) [Volume fraction]29.1 %Critically low36.0-48.0 The [facility] Willard HospitalComment on above:Performed By: #### INSULIN #### [facility] [address] [place] [address] Dr. Ekta FunkHemoglobin (Bld) [Mass/Vol]9.5 g/dLCritically low12.0-16.0The [facility] HospitalComment on above:Performed By: #### INSULIN #### [facility] [address] [place] [address] Dr. Ekta FunkIG #0.07 10e3/ulCritically high0.00-0.03The [facility] Comment on above:Performed By: #### INSULIN #### [facility] [address] [place] [address] Dr. Ekta FunkIG %1.0 %Critically high0.0-0.5ThAshtabula County Medical CenterComment on above:Performed By: #### INSULIN #### [facility] [address] [place] [address] Dr. Ekta Putnam #1.2 103/ulNormal1.2-3.8The [facility] HospitalComment on above:Performed By: #### INSULIN #### [facility] [address] [place] [address] Dr. Ekta Lundberghocytes/100 WBC (Bld)17.2 %Critically low20.5-60.0[facility]ana HospitalComment on above:Performed By: #### INSULIN #### [facility] [address] [place] [address] Dr. Ekta MaloneUAL DIFF REQNONormalThe [facility] HospitalComment on above: Performed By: #### INSULIN #### [facility] [address] [place] [address] Dr. Ekta Frye (RBC) [Entitic mass]31.7 xmDflohs39.7-34.0The [facility] HospitalComment on above:Performed By: #### INSULIN #### [facility] [address] [place] [address] Dr. Ekta Oconnor (RBC) [Mass/Vol]32.6 g/zYHtelfx57.9-35.2The [facility] HospitalComment on above:Performed By: #### INSULIN #### [facility] [address] [place] [address] Dr. Ekta Oconnor (RBC) [Entitic vol]97.0 yOBlgcwm98.0-99.0The [facility] HospitalComment on above:Performed By: #### INSULIN #### [facility] [address] [place] [address] Dr. Ekta Rivas #0.8 103/ulNormal0.3-0.8The [facility] HospitalComment on above:Performed By: #### INSULIN #### [facility] [address] [place] [address] Dr. Ekta Perkinsocytes/100 WBC (Bld)11.1 %Normal1.7-12.0The [facility] Comment on above:Performed By: #### INSULIN #### [facility] [address] [place] [address] Dr. Ekta DimasUT #4.5 103/ulNormal1.4-6.5The [facility] HospitalComment on above:Performed By: #### INSULIN #### [facility] [address] [place] [address] Dr. Ekta Dimasutrophils/100 WBC (Bld)65.3 %Yunryt13.0-75.0The [facility] HospitalComment on above:Performed By: #### INSULIN #### [facility] [address] [place] [address] Dr. Ekta Salomonlet mean volume (Bld) [Entitic vol]9.4 fLCritically low 9.5-13.5The [facility] HospitalComment on above:Performed By: #### INSULIN #### [facility] [address] [address] [address] Ekta FunkPLT263 103/wiFrepmt093-918Fes [facility]ula County Medical Centerment on above: Performed By: #### INSULIN #### [facility] [address] [address] [address] Ekta FunkRBC3.00 106/ulCritically low4.20-5.40The [facility] HospitalComment on above:Performed By: #### INSULIN #### [facility] [address] [place] [address] Dr. Ekta FunkWBC6.9 103/ulNormal4.0-11.0The [facility] HospitalComment on above: Performed By: #### INSULIN #### [facility] [address] [place] [address] Dr. Ekta CarrilloF 14(COMP METB)on 93-46-8410Dojxeae [Mass/Vol]2.2 g/dL Critically low3.4-5.0The [facility] HospitalComment on above:Performed By: #### CMP #### [facility] [address] [place] [address] Dr. Ekta FunkAlbumin/Globulin [Mass ratio]0.6 {ratio}NormalThe [facility]htabula County Medical Centerment on above:Performed By: #### CMP #### [facility] [address] [place] [address] Dr. Ekta Cowart [Catalytic activity/Vol]82 U/ZJrnwzz61-470Ekp [facility] on above:Performed By: #### CMP #### [facility] [address] [place] [place] [address] Dr. Ekta Mccormick [Catalytic activity/Vol]13 U/LCritically vto73-30She [facility] on above:Performed By: #### CMP #### [facility] [address] [place] [address] Dr. Ekta Harrison gap [Moles/Vol]14.0 mmol/LNormalThe [facility] on above:Performed By: #### CMP #### [facility] [address] [address] [address] Ekta FunkAST [Catalytic activity/Vol]18 U/HSbxmdg81-52Pjl [facility] HospitalComment on above:Performed By: #### CMP #### [facility] [address] [address] [address] Ekta FunkBilirubin [Mass/Vol]0.4 mg/dLNormal0.2-1.0The [facility] Comment on above:Performed By: #### CMP #### [facility] [address] [address] [address] Ekta FunkCalcium [Mass/Vol]8.6 mg/dLNormal8.5-10.1The [facility] Comment on above:Performed By: #### CMP #### [facility] [address] [address] [address] Ekta FunkChloride [Moles/Vol]108 mmol/LCritically qtab60-357Cfv [facility] HospitalComment on above:Performed By: #### CMP #### [facility] [address] [address] [address] Ekta FunkCO2 [Moles/Vol]19.6 mmol/LCritically low21.0-32.0The [facility] HospitalComment on above:Performed By: #### CMP #### [facility] [address] [address] [address] Ekta FunkCreatinine [Mass/Vol]1.70 mg/dLCritically high0.55-1.02The [facility] HospitalComment on above:Performed By: #### CMP #### [facility] [address] [address] [address] Dash ChangEGFR-AF ODFLBUSX15 mL/min/1.38a2Odgxywqowy low>=60The [facility] HospitalComment on above:Performed By: #### CMP #### [facility] [address] [address] [address] Ekta AbebeGFR-NON AF EXSSJHRJ00 mL/min/1.61r0Fmgibyiuoj low>=60The [facility] HospitalComment on above:Performed By: #### CMP #### [facility] [address] [address] [address] Ekta FunkGlobulin (S) [Mass/Vol]3.6 g/dLNoRiverside Methodist HospitalComment on above:Performed By: #### CMP #### [facility] [address] [address] [address] Ekta FunkGlucose [Mass/Vol]103 mg/fULveiqw10-050CcsMer[facility] Comment on above:Performed By: #### CMP #### [facility] [address] [address] [address] Ekta FunkPotassium [Moles/Vol]4.6 mmol/LNormal3.5-5.1The [facility] Comment on above:Performed By: #### CMP #### [facility] [address] [place] [address] Dr. Ekta FunkProtein [Mass/Vol]5.8 g/dLCritically low6.4-8.2[facility] HospitalComment on above:Performed By: #### CMP #### [facility] [address] [address] [address] Ekta FunkSodium [Moles/Vol]137 mmol/YXkhoxb357-605BqnMer[facility] Health [facility] Hospital Comment on above:Performed By: #### CMP #### [facility] [address] [place] [address] Dr. Ekta FunkUrea nitrogen [Mass/Vol]26.0 mg/dLCritically high7.0-18.0[facility] HospitalComment on above:Performed By: #### CMP #### [facility] [address] [place] [address] Dr. Ekta FunkUrea nitrogen/Creatinine [Mass ratio]15.3 mg/mgNoRiverside Methodist HospitalComforest health medical center on above:Performed By: #### CMP #### [facility] [address] [place] [address] Dr. Ekta CaalC AUTO DIFFon [id number] #0.1 103/ulNormal0.0-0.1[facility] HospitalComment on above:Performed By: #### CBC #### [facility] [address] [address] [address] Ekta FunkBasophils/100 WBC (Bld)0.7 %Normal0.2-2.0[facility] Comment on above:Performed By: #### CBC #### [facility] [address] [place] [address] Dr. Ekta Anthony #0.3 103/ulNormal0.0-0.7The [facility] HospitalComment on above: Performed By: #### CBC #### [facility] [address] [place] [address] Dr. Ekta Abebeosinophils/100 WBC (Bld)3.4 %Normal0.9-7.0The [facility] Comment on above:Performed By: #### CBC #### [facility] [address] [place] [address] Dr. Ekta Abeberythrocyte distribution width (RBC) [Ratio]13.6 %Kwttnx71.0-15.0 [facility] HospitalComment on above:Performed By: #### CBC #### [facility] [address] [place] [address] Dr. Ekta FunkHematocrit (Bld) [Volume fraction]32.1 %Critically low36.0-48.0 [facility] HospitalComment on above:Performed By: #### CBC #### [facility] [address] [place] [address] Dr. Ekta FunkHemoglobin (Bld) [Mass/Vol]10.3 g/dLCritically low12.0-16.0[facility] HospitalComment on above:Performed By: #### CBC #### [facility] [address] [place] [address] Dr. Ekta Olivares #0.08 10e3/ulCritically high0.00-0.03[facility] Comment on above:Performed By: #### CBC #### [facility] [address] [place] [address] Dr. Ekta Olivares %0.9 %Critically high0.0-0.5The [facility] HospitalComment on above:Performed By: #### CBC #### [facility] [address] [address] [address] Ekta Putnam #0.9 103/ulCritically low1.2-3.8The [facility] Comment on above:Performed By: #### CBC #### [facility] [address] [address] [address] Ekta Lundberghocytes/100 WBC (Bld)10.7 %Critically low20.5-60.0The [facility] HospitalComment on above:Performed By: #### CBC #### [facility] [address] [place] [address] Dr. Ekta Beckham DIFF REQNONormalThe [facility] HospitalComment on above: Performed By: #### CBC #### [facility] [address] [place] [address] Dr. Ekta Frye (RBC) [Entitic mass]32.2 ojJugiyi09.7-34.0The [facility] HospitalComment on above:Performed By: #### CBC #### [facility] [address] [place] [address] Dr. Ekta Oconnor (RBC) [Mass/Vol]32.1 g/uMPiqszd06.9-35.2The [facility] HospitalComment on above:Performed By: #### CBC #### [facility] [address] [place] [address] Dr. Ekta Estevez (RBC) [Entitic vol]100.3 fLCritically high81.0-99.0The [facility] HospitalComment on above:Performed By: #### CBC #### [facility] [address] [place] [address] Dr. Ekta Rivas #0.9 103/ulCritically high0.3-0.8The [facility] Comment on above:Performed By: #### CBC #### [facility] [address] [place] [address] Dr. Ekta Perkinsocytes/100 WBC (Bld)9.9 %Normal1.7-12.0The [facility] Comment on above:Performed By: #### CBC #### [facility] [address] [place] [address] Dr. Ekta Salazar #6.4 103/ulNormal1.4-6.5The [facility] HospitalComment on above:Performed By: #### CBC #### [facility] [address] [place] [address] Dr. Ekta Dimasutrophils/100 WBC (Bld)74.4 %Oxvoyh49.0-75.0The [facility] HospitalComment on above:Performed By: #### CBC #### [facility] [address] [place] [address] Dr. Ekta Salomonlet mean volume (Bld) [Entitic vol]9.5 fLNormal9.5-13.5The [facility] HospitalComment on above:Performed By: #### CBC #### [facility] [address] [place] [address] Dr. Ekta DriverT267 103/uzIlimto372-812Oea [facility] HospitalComment on above: Performed By: #### CBC #### [facility] [address] [place] [address] Dr. Etka AllenC3.20 106/ulCritically low4.20-5.40The [facility] HospitalComment on above:Performed By: #### CBC #### [facility] [address] [place] [address] Dr. Ekta LeonardoBC8.6 103/ulNormal4.0-11.0The [facility] HospitalComment on above: Performed By: #### CBC #### [facility] [address] [place] [address] Dr. Ekta ThorntonSO #0.1 103/ulNormal0.0-0.1The [facility] HospitalComment on above:Performed By: #### CMP #### [facility] [address] [place] [address] Dr. Ekta Thorntonsophils/100 WBC (Bld)0.7 %Normal0.2-2.0[facility] Comment on above:Performed By: #### CMP #### [facility] [address] [place] [address] Dr. Ekta Anthony #0.3 103/ulNormal0.0-0.7The [facility] HospitalComment on above: Performed By: #### CMP #### [facility] [address] [place] [address] Dr. Ekta Abebeosinophils/100 WBC (Bld)3.9 %Normal0.9-7.0The [facility] Comment on above:Performed By: #### CMP #### [facility] [address] [place] [address] Dr. Ekta Abeberythrocyte distribution width (RBC) [Ratio]13.2 %Nbfzgf24.0-15.0 [facility] HospitalComment on above:Performed By: #### CMP #### [facility] [address] [place] [address] Dr. Ekta FunkHematocrit (Bld) [Volume fraction]28.0 %Critically low36.0-48.0 [facility] HospitalComment on above:Performed By: #### CMP #### [facility] [address] [place] [address] Dr. Ekta FunkHemoglobin (Bld) [Mass/Vol]9.3 g/dLCritically low12.0-16.0[facility] HospitalComment on above:Performed By: #### CMP #### [facility] [address] [place] [address] Dr. Ekta Olivares #0.08 10e3/ulCritically high0.00-0.03The [facility] Comment on above:Performed By: #### CMP #### [facility] [address] [place] [address] Dr. Ekta Olivares %1.1 %Critically high0.0-0.5ThAshtabula County Medical CenterComment on above:Performed By: #### CMP #### [facility] [address] [place] [address] Dr. Ekta Putnam #0.9 103/ulCritically low1.2-3.8The [facility] Comment on above:Performed By: #### CMP #### [facility] [address] [place] [address] Dr. Ekta Lundberghocytes/100 WBC (Bld)12.1 %Critically low20.5-60.0The [facility] HospitalComment on above:Performed By: #### CMP #### [facility] [address] [place] [address] Dr. Ekta Beckham DIFF REQNONormalThe [facility] HospitalComment on above: Performed By: #### CMP #### [facility] [address] [place] [address] Dr. Ekta Frye (RBC) [Entitic mass]32.0 szZaixlo88.7-34.0The [facility] HospitalComment on above:Performed By: #### CMP #### [facility] [address] [place] [address] Dr. Ekta Oconnor (RBC) [Mass/Vol]33.2 g/oDBkdrzl04.9-35.2The [facility] HospitalComment on above:Performed By: #### CMP #### [facility] [address] [place] [address] Dr. Ekta Oconnor (RBC) [Entitic vol]96.2 lHKbmrgp46.0-99.0The [facility] HospitalComment on above:Performed By: #### CMP #### [facility] [address] [place] [address] Dr. Ekta Rivas #0.7 103/ulNormal0.3-0.8The [facility] HospitalComment on above:Performed By: #### CMP #### [facility] [address] [place] [address] Dr. Ekta Perkinsocytes/100 WBC (Bld)9.8 %Normal1.7-12.0[facility] Comment on above:Performed By: #### CMP #### [facility] [address] [place] [address] Dr. Ekta Salazar #5.2 103/ulNormal1.4-6.5The [facility] HospitalComment on above:Performed By: #### CMP #### [facility] [address] [place] [address] Dr. Ekta Dimasutrophils/100 WBC (Bld)72.4 %Kvollz90.0-75.0The [facility] HospitalComment on above:Performed By: #### CMP #### [facility] [address] [place] [address] Dr. Ekta FunkPlatelet mean volume (Bld) [Entitic vol]9.4 fLCritically low 9.5-13.5The [facility] HospitalComment on above:Performed By: #### CMP #### [facility] [address] [place] [address] Dr. Ekta FunkPLT250 103/taPcymhe473-920Luf [facility] HospitalComment on above: Performed By: #### CMP #### [facility] [address] [place] [address] Dr. Ekta FunkRBC2.91 106/ulCritically low4.20-5.40The [facility] HospitalComment on above:Performed By: #### CMP #### [facility] [address] [place] [address] Dr. Etka FunkWBC7.2 103/ulNormal4.0-11.0The [facility] HospitalComforest [facility] center on above: Performed By: #### CMP #### [facility] [address] [place] [address] Dr. Etka FunkPROF 14(COMP METB)on [id number] [Mass/Vol]2.1 g/dL Critically low3.4-5.0The [facility] HospitalComforest [facility] on above:Performed By: #### CMP #### [facility] [address] [place] [address] Dr. Ekta FunkAlbumin/Globulin [Mass ratio]0.6 {ratio}NormalThe [facility] HospitalComment on above:Performed By: #### CMP #### [facility] [address] [address] [address] Ekta AlcantaraP [Catalytic activity/Vol]68 U/FXhaoxn52-102Ugn [facility] HospitalComment on above:Performed By: #### CMP #### [facility] [address] [address] [address] Ekta AlcantaraT [Catalytic activity/Vol]14 U/YOyfnzk09-74Nli [facility] HospitalComment on above:Performed By: #### CMP #### [facility] [address] [address] [address] Ekta Harrison gap [Moles/Vol]12.9 mmol/LNormalThe [facility] Comment on above:Performed By: #### CMP #### [facility] [address] [address] [address] Ekta FunkAST [Catalytic activity/Vol]14 U/LCritically kbk41-51Ait [facility] HospitalComment on above:Performed By: #### CMP #### [facility] [address] [address] [address] Ekta FunkBilirubin [Mass/Vol]0.3 mg/dLNormal0.2-1.0The [facility] Comment on above:Performed By: #### CMP #### [facility] [address] [place] [address] Dr. Ekta FunkCalcium [Mass/Vol]8.3 mg/dLCritically low8.5-10.1The [facility] HospitalComment on above:Performed By: #### CMP #### [facility] [address] [place] [address] Dr. Ekta FnukChloride [Moles/Vol]109 mmol/LCritically ifwx93-224Qot [facility] HospitalComment on above:Performed By: #### CMP #### [facility] [address] [address] [address] Ekta FunkCO2 [Moles/Vol]19.3 mmol/LCritically low21.0-32.0The [facility] HospitalComment on above:Performed By: #### CMP #### [facility] [address] [address] [address] Ekta FunkCreatinine [Mass/Vol]1.54 mg/dLCritically high0.55-1.02The [facility] HospitalComment on above:Performed By: #### CMP #### [facility] [address] [address] [address] Ekta AbebeGFR-AF QDJPSGDI68 mL/min/1.84g9Cxvmzapikc low>=60The [facility] HospitalComment on above:Performed By: #### CMP #### [facility] [address] [address] [address] Ekta AbebeGFR-NON AF OZBOWJFQ63 mL/min/1.85l2Rogbjlfduv low>=60The [facility] HospitalComment on above:Performed By: #### CMP #### [facility] [address] [place] [address] Dr. Ekta FunkGlobulin (S) [Mass/Vol]3.7 g/dLNormalThAshtabula County Medical CenterComment on above:Performed By: #### CMP #### [facility] [address] [place] [address] Dr. Ekta FunkGlucose [Mass/Vol]117 mg/dLCritically qytd20-592Ffi [facility] HospitalComment on above:Performed By: #### CMP #### [facility] [address] [place] [address] Dr. Ekta FunkPotassium [Moles/Vol]4.2 mmol/LNormal3.5-5.1The [facility] Comment on above:Performed By: #### CMP #### [facility] [address] [place] [address] Dr. Ekta FunkProtein [Mass/Vol]5.8 g/dLCritically low6.4-8.2[facility] HospitalComment on above:Performed By: #### CMP #### [facility] [address] [place] [address] Dr. Ekta FunkSodium [Moles/Vol]137 mmol/GWabocd691-143Cpp [facility] Comment on above:Performed By: #### CMP #### [facility] [address] [place] [address] Dr. Ekta Spring nitrogen [Mass/Vol]27.0 mg/dLCritically high7.0-18.0The [facility] HospitalComment on above:Performed By: #### CMP #### [facility] [address] [place] [address] Dr. Ekta Spring nitrogen/Creatinine [Mass ratio]17.5 mg/mgNormalThe [facility] HospitalComment on above:Performed By: #### CMP #### [facility] [address] [place] [address] Dr. Ekta FunkAMMONIAon [id number] (P) [Moles/Vol]13 umol/RQuoxjo64-73 [facility] HospitalComforest [facility] center on above:Performed By: #### CVDTBH #### [facility] [address] [place] [address] Dr. Ekta Agarwal AUTO DIFFon [id number] #0.0 103/ulNormal0.0-0.1The [facility] HospitalComment on above:Performed By: #### CMP #### [facility] [address] [place] [address] Dr. Ekta FunkBasophils/100 WBC (Bld)0.4 %Normal0.2-2.0[facility] Comment on above:Performed By: #### CMP #### [facility] [address] [place] [address] Dr. Ekta Anthony #0.4 103/ulNormal0.0-0.7The [facility] on above: Performed By: #### CMP #### [facility] [address] [place] [address] Dr. Ekta Abebeosinophils/100 WBC (Bld)3.8 %Normal0.9-7.0The [facility] Comment on above:Performed By: #### CMP #### [facility] [address] [place] [address] Dr. Ekta Abeberythrocyte distribution width (RBC) [Ratio]13.2 %Dahidp79.0-15.0 [facility] HospitalComment on above:Performed By: #### CMP #### [facility] [address] [address] [address] Ekta FunkHematocrit (Bld) [Volume fraction]34.0 %Critically low36.0-48.0 The [facility] HospitalComment on above:Performed By: #### CMP #### [facility] [address] [place] [address] Dr. Ekta FunkHemoglobin (Bld) [Mass/Vol]11.5 g/dLCritically low12.0-16.0The [facility] HospitalComment on above:Performed By: #### CMP #### [facility] [address] [place] [address] Dr. Ekta Olivares #0.11 10e3/ulCritically high0.00-0.03The [facility] Comment on above:Performed By: #### CMP #### [facility] [address] [place] [address] Dr. Ekta Olivares %1.2 %Critically high0.0-0.5The [facility] HospitalComment on above:Performed By: #### CMP #### [facility] [address] [place] [address] Dr. Ekta Putnam #1.4 103/ulNormal1.2-3.8The [facility] HospitalComment on above:Performed By: #### CMP #### [facility] [address] [place] [address] Dr. Ekta Nettlesmphocytes/100 WBC (Bld)14.9 %Critically low20.5-60.0The [facility] HospitalComment on above:Performed By: #### CMP #### [facility] [address] [place] [address] Dr. Ekta MaloneUAL DIFF REQNONormalThe [facility] HospitalComment on above: Performed By: #### CMP #### [facility] [address] [place] [address] Dr. Ekta Frye (RBC) [Entitic mass]32.5 amQahtzi81.7-34.0The [facility] HospitalComment on above:Performed By: #### CMP #### [facility] [address] [place] [address] Dr. Ekta Oconnor (RBC) [Mass/Vol]33.8 g/aMVdqumh77.9-35.2The [facility] HospitalComment on above:Performed By: #### CMP #### [facility] [address] [place] [address] Dr. Ekta OconnorV (RBC) [Entitic vol]96.0 oWFyfntt71.0-99.0The [facility] HospitalComment on above:Performed By: #### CMP #### [facility] [address] [place] [address] Dr. Ekta Rivas #0.9 103/ulCritically high0.3-0.8The [facility] Comment on above:Performed By: #### CMP #### [facility] [address] [place] [address] Dr. Ekta Perkinsocytes/100 WBC (Bld)9.7 %Normal1.7-12.0The [facility] Comment on above:Performed By: #### CMP #### [facility] [address] [place] [address] Dr. Ekta Salazar #6.4 103/ulNormal1.4-6.5The [facility] HospitalComment on above:Performed By: #### CMP #### [facility] [address] [place] [address] Dr. Ekta Pelletierophils/100 WBC (Bld)70.0 %Wwnqfl19.0-75.0The [facility] HospitalComment on above:Performed By: #### CMP #### [facility] [address] [place] [address] Dr. Ekta Trevino mean volume (Bld) [Entitic vol]9.3 fLCritically low 9.5-13.5The [facility] HospitalComment on above:Performed By: #### CMP #### [facility] [address] [place] [address] Dr. Ekta DriverT308 103/gkRehpat116-699Dlp [facility] HospitalComment on above: Performed By: #### CMP #### [facility] [address] [place] [address] Dr. Ekta FunkRBC3.54 106/ulCritically low4.20-5.40The [facility] HospitalComment on above:Performed By: #### CMP #### [facility] [address] [place] [address] Dr. Ekta FunkWBC9.1 103/ulNormal4.0-11.0The [facility] HospitalComment on above: Performed By: #### CMP #### [facility] [address] [place] [address] Dr. Ekta FunkCPKorama [id number] [Catalytic activity/Vol]21 U/LCritically low 26-192The [facility] HospitalComment on above:Performed By: #### B12FOL, VITAD, IRON #### [facility] [address] [place] [address] Dr. Ekta FunkCT STROKE HEAD WOon [id number] STROKE HEAD WOEXAMINATION: CT STROKE HEAD WO [...] authenticated by: VANESSA PARADA Date: 2022-11-24 11:09 NormalOhio[facility] HEAD WO W CONon [id number] HEAD WO W CON EXAMINATION: CTA HEAD [...] further evaluation. IMPRESSION: Electronically authenticated by: DANIEL GRACEDOMINIK Date: 2022-11-24 12:41NormalThe [facility] HospitalCULTURE URINEon [id number] URINECulture Observations: NO GROWTH.NormalThe [facility] HospitalComment on above:Performed By: #### INSULIN #### [facility] [address] [place] [address] Dr. Ekta Dyerd-19 PCR (CVDTB)on [id number]-CoV-2 (COVID-19) RNA GANESH+probe Ql (Unsp spec)Not detectedNormalNOT DETECTEDMer[facility] Health [facility] Comment on above:Result Comment: When diagnostic [...] for this test is supported by the [place] of Health and Human Service's declaration that [...] longer be used).Performed By: #### CVDTBH #### [facility] [address] [place] [address] Dr. Ekta Mckeon URINE PROFILEon [id number] Ql (U)NegativeNormal NEGATIVEThe [facility] HospitalComment on above:Performed By: #### CBC #### [facility] [address] [place] [address] Dr. Ekta FunkClarity (U)CLEARNormalCLEARThe [facility] HospitalComment on above: Performed By: #### CBC #### [facility] [address] [address] [address] Ekta Suttonlor (U)LT. YELLOWNormalYELLOWMercy Health Urbana HospitalComment on above:Performed By: #### CBC #### [facility] [address] [address] [address] Ekta Chan micrscopic examination will be performed if indicated. NormalThe [facility] HospitalComment on above:Performed By: #### CBC #### [facility] [address] [address] [address] Ekta FunkGlucose Ql (U)NegativeNormalNEGATIVEMercy Health Urbana HospitalComment on above:Performed By: #### CBC #### [facility] [address] [place] [address] Dr. Ekta FunkHemoglobin Ql (U)NegativeNormalNEGATIVEBluffton Hospital on above:Performed By: #### CBC #### [facility] [address] [address] [address] Ekta FunkKetones Ql (U)NegativeNormalNEGATIVEMercy Health Urbana HospitalComment on above:Performed By: #### CBC #### [facility] [address] [address] [address] Ekta FunkLEUKOCYTESNegativeNormalNEGATIVEMercy Health Urbana HospitalComforest health medical center on above:Performed By: #### CBC #### [facility] [address] [address] [address] Ekta FunkNitrite Ql (U)NegativeNormalNEGATIVEMercy Health Urbana HospitalComment on above:Performed By: #### CBC #### [facility] [address] [address] [address] Ekta FunkpH (U)5.5 [pH]Normal5-9[facility] HospitalComment on above: Performed By: #### CBC #### [facility] [address] [address] [address] Ekta FunkSPEC GRAVITY1.068Vvhvwu8.005-<=1.025Mer[facility]rbana HospitalComment on above:Performed By: #### CBC #### [facility] [address] [address] [address] Ekta Camejo PROTEINNegativeNormalNEGATIVE/ TRACEThe [facility] Comment on above:Performed By: #### CBC #### [facility] [address] [address] [address] Ekta Villarreal MICRO INDNOT INDICATEDNoRiverside Methodist HospitalComment on above:Performed By: #### CBC #### [facility] [address] [address] [address] Ekta FunkUrobilinogen Qn (U)0.2 {Ivan'U}/dLNormal0.2 - 1.0The [facility] HospitalComment on above:Performed By: #### CBC #### [facility] [address] [place] [address] Dr. Ekta FunkGLYCOHEMOGLOBIN A1Con 73-25-0750DTB RECOMMENDATIONSEE BELOWNormal The [facility] HospitalComment on above:Result Comment: ADA RECOMMENDED LIMIT 4.0 - 6.0 ADA THERAPEUTIC TARGET < 7.0 ACTION SUGGESTED > 7.0Performed By: #### B12FOL, VITAD, IRON #### [facility] [address] [place] [address] Dr. Ekta FunkGlucose [Mass/Vol]143 mg/dLOhio Valley Surgical HospitalComforest health medical center on above:Performed By: #### B12FOL, VITAD, IRON #### [facility] [address] [place] [address] Dr. Ekta FunkHbA1c (Bld) [Mass fraction]6.6 %Critically high4.5-6.2The [facility] HospitalComment on above:Performed By: #### B12FOL, VITAD, IRON #### [facility] [address] [place] [address] Dr. Ekta FunkLACTATE/LACTIC ACIDon 95-25-3897Xjuzddz [Moles/Vol]1.6 mmol/L Normal0.4-2.0The [facility] HospitalComment on above:Performed By: #### CMP #### [facility] [address] [address] [address] Ekta FunkLactate [Moles/Vol]2.1 mmol/LCritically high0.4-2.0The [facility] on above:Performed By: #### B12FOL, VITAD, IRON #### [facility] [address] [address] [address] Ekta FunkLIPASEon [id number] [Catalytic activity/Vol]165.0 U/LNormal 73.0-393.0The [facility] on above:Performed By: #### B12FOL, VITAD, IRON #### [facility] [address] [place] [address] Dr. Ekta EncinasID PROFILEon 47-74-1984QIFI-HDL RATIO NORMSEE [facility]Com[facility] center on above:Result Comment: 3.3 - 4.4 LOW RISK 4.4 - 7.1 AVERAGE RISK 7.1 - 11.0 MODERATE RISK >11.0 HIGH RISKPerformed By: #### B12FOL, VITAD, IRON #### [facility] [address] [place] [address] Dr. Ekta FunkCholesterol [Mass/Vol]248 mg/dLCritically high<=200The [facility] on above:Performed By: #### B12FOL, VITAD, IRON #### [facility] [address] [place] [address] Dr. Ekta FunkCholesterol in HDL [Mass/Vol]58 mg/kREjfpsp39-05Una [facility] on above:Performed By: #### B12FOL, VITAD, IRON #### [facility] [address] [place] [address] Dr. Ekta FunkCholesterol in LDL [Mass/Vol]165.6 mg/dLWayne Hospital on above:Performed By: #### B12FOL, VITAD, IRON #### [facility] [address] [place] [address] Dr. Ekta Tejedaestertracy.total/Cholesterol in HDL [Mass ratio]4.3 {ratio} NormalMercy Health Urbana HospitalComment on above:Performed By: #### B12FOL, VITAD, IRON #### [facility] [address] [place] [address] Dr. Ekta Uriarte NORMAL> or = 60 mg/dl - LOW CARDIOVASCULAR RISK <40 mg/dl - HIGH CARDIOVASCULAR RISKOhio Valley Surgical HospitalComment on above:Performed By: #### B12FOL, VITAD, IRON #### [facility] [address] [place] [address] Dr. Ekta FunkLDL CALC NORMALSEE BELOWNoRiverside Methodist HospitalComment on above:Result Comment: <100 mg/dl OPTIMAL 100 - 129 mg/dl NEAR OR ABOVE OPTIMAL 130 - 159 mg/dl BORDERLINE HIGH 160 - 189 mg/dl HIGH >190 mg/dl VERY HIGH Performed By: #### B12FOL, VITAD, IRON #### [facility] [address] [place] [address] Dr. Ekta FunkTriglyceride [Mass/Vol]122 mg/dLNormal<=150[facility] Comment on above:Performed By: #### B12FOL, VITAD, IRON #### [facility] [address] [place] [address] Dr. Ekta FunkVLDL CALC24.4 mg/dLOhio Valley Surgical HospitalComment on above: Performed By: #### B12FOL, VITAD, IRON #### [facility] [address] [place] [address] Dr. Ekta Odonnell BRAIN WO CONon [id number] BRAIN WO CONI BRAIN WO CON 11/24/2022 6:51 PM EDT [...] by: RAVEN ELAINE Date: 2022-11-24 19:35Normal The [facility] HospitalPROF 14(COMP METB)on 01-55-4516Gbyntqs [Mass/Vol]2.7 g/dL Critically low3.4-5.0The [facility] HospitalComment on above:Performed By: #### B12FOL, VITAD, IRON #### [facility] [address] [address] [address] Ekta FunkAlbumin/Globulin [Mass ratio]0.6 {ratio}NormalThe [facility] HospitalComment on above:Performed By: #### B12FOL, VITAD, IRON #### [facility] [address] [address] [address] Ekta Cowart [Catalytic activity/Vol]85 U/INufiqt54-767Fvx [facility] HospitalComment on above:Performed By: #### B12FOL, VITAD, IRON #### [facility] [address] [address] [address] Ekta Mccormick [Catalytic activity/Vol]18 U/PAhsxif80-56Gbh [facility] HospitalComment on above:Performed By: #### B12FOL, VITAD, IRON #### [facility] [address] [address] [address] Ekta Harrison gap [Moles/Vol]18.9 mmol/LNormalThe [facility] Comment on above:Performed By: #### B12FOL, VITAD, IRON #### [facility] [address] [address] [address] Ekat FunkAST [Catalytic activity/Vol]16 U/JGrqkbn63-86Vaf [facility] HospitalComment on above:Performed By: #### B12FOL, VITAD, IRON #### [facility] [address] [place] [address] Dr. Ekta FunkBilirubin [Mass/Vol]0.4 mg/dLNormal0.2-1.0The [facility] Comment on above:Performed By: #### B12FOL, VITAD, IRON #### [facility] [address] [address] [address] Ekta FunkCalcium [Mass/Vol]9.5 mg/dLNormal8.5-10.1The [facility] Comment on above:Performed By: #### B12FOL, VITAD, IRON #### [facility] [address] [place] [address] Dr. Ekta FunkChloride [Moles/Vol]108 mmol/LCritically bsir97-089Nkp [facility] HospitalComment on above:Performed By: #### B12FOL, VITAD, IRON #### [facility] [address] [place] [address] Dr. Ekta FunkCO2 [Moles/Vol]21.1 mmol/LCxzvev96.0-32.0The [facility] Comment on above:Performed By: #### B12FOL, VITAD, IRON #### [facility] [address] [place] [address] Dr. Ekta FunkCreatinine [Mass/Vol]2.08 mg/dLCritically high0.55-1.02The [facility] HospitalComment on above:Performed By: #### B12FOL, VITAD, IRON #### [facility] [address] [place] [address] Dr. Dash ChangEGFR-AF ZSTUETXU21 mL/min/1.30n0Dofvnqusrv low>=60The [facility] HospitalComment on above:Performed By: #### B12FOL, VITAD, IRON #### [facility] [address] [place] [address] Dr. Ekta AbebeGFR-NON AF CDHSRPIK98 mL/min/1.16v3Glbaovvdkq low>=60The [facility] HospitalComment on above:Performed By: #### B12FOL, VITAD, IRON #### [facility] [address] [place] [address] Dr. Ekta FunkGlobulin (S) [Mass/Vol]4.6 g/dLNormalThe [facility] HospitalComment on above:Performed By: #### B12FOL, VITAD, IRON #### [facility] [address] [place] [address] Dr. Ekta FunkGlucose [Mass/Vol]119 mg/dLCritically ojrz81-841Zuq [facility] HospitalComment on above:Performed By: #### B12FOL, VITAD, IRON #### [facility] [address] [place] [address] Dr. Ekta FunkPotassium [Moles/Vol]5.0 mmol/LNormal3.5-5.1The [facility] Comment on above:Performed By: #### B12FOL, VITAD, IRON #### [facility] [address] [place] [address] Dr. Ekta FunkProtein [Mass/Vol]7.3 g/dLNormal6.4-8.2The [facility] Comment on above:Performed By: #### B12FOL, VITAD, IRON #### [facility] [address] [address] [address] Ekta FunkSodium [Moles/Vol]143 mmol/SScffqe579-803Pxm [facility] Comment on above:Performed By: #### B12FOL, VITAD, IRON #### [facility] [address] [place] [address] Dr. Ekta FunkUrea nitrogen [Mass/Vol]37.0 mg/dLCritically high7.0-18.0The [facility] HospitalComment on above:Performed By: #### B12FOL, VITAD, IRON #### [facility] [address] [place] [address] Dr. Ekta FunkUrea nitrogen/Creatinine [Mass ratio]17.8 mg/mgNoRiverside Methodist HospitalComment on above:Performed By: #### B12FOLCAROLYN, IRON #### [facility] [address] [place] [address] Dr. Ekta Rich, HIGH SENSITIVITYon 81-28-2139VJPVDP10.1 pg/mLNormal 4.0-51.3The [facility] on above:Result Comment: CUT-OFF POINTS HAVE BEEN ESTABLISHED BASED ON THE FOURTH UNIVERSAL DEFINITIONS OF MYOCARDIAL INFARCTION. THE UPPER REFERENCE LIMIT (URL) OF TROPONIN, DEFINED THE 99TH PERCENTILE OF cTnI DISTRIBUTION IN A REFERENCE POPULATION, HAS BEEN CONFIRMED THE DECISION THRESHOLD FOR SD DIAGNOSIS.Performed By: #### B12FOCAROLYN Lui, IRON #### [facility] [address] [place] [address] Dr. Ekta Carmona 39-11-1473JCA7.184 uIU/mLNormal0.358-3.740The [facility] Centerment on above:Performed By: #### B12FONENO LuiAD, IRON #### [facility] [address] [place] [address] Dr. Ekta FunkXR CHEST 1 Von [id number] CHEST 1 VEXAM: XR CHEST 1 V [...] Electronically authenticated by: NATALIIA TATE Date: 2022-11-24 11:00NoRiverside Methodist HospitalBNPon [id number] peptide B (Bld) [Mass/Vol]565.0 pg/mLNormal<=900.0The [facility] on above:Performed By: #### INSULIN #### [facility] [address] [address] [address] Ekta Agarwal AUTO DIFFon [id number] #0.1 103/ulNormal0.0-0.1The [facility] HospitalComment on above:Performed By: #### CBC #### [facility] [address] [address] [address] Ekta FunkBasophils/100 WBC (Bld)0.6 %Normal0.2-2.0The [facility] Comment on above:Performed By: #### CBC #### [facility] [address] [place] [address] Dr. Ekta Anthony #0.4 103/ulNormal0.0-0.7The [facility] HospitalComment on above: Performed By: #### CBC #### [facility] [address] [place] [address] Dr. Ekta Abebeosinophils/100 WBC (Bld)3.7 %Normal0.9-7.0The [facility] Comment on above:Performed By: #### CBC #### [facility] [address] [place] [address] Dr. Ekta Abeberythrocyte distribution width (RBC) [Ratio]13.2 %Unsinf11.0-15.0 The [facility] HospitalComment on above:Performed By: #### CBC #### [facility] [address] [place] [address] Dr. Ekta FunkHematocrit (Bld) [Volume fraction]36.7 %Msgfqi99.0-48.0The [facility] HospitalComment on above:Performed By: #### CBC #### [facility] [address] [place] [address] Dr. Ekta FunkHemoglobin (Bld) [Mass/Vol]12.4 g/dUTwlroj46.0-16.0The [facility] HospitalComment on above:Performed By: #### CBC #### [facility] [address] [place] [address] Dr. Ekta Olivares #0.10 10e3/ulCritically high0.00-0.03The [facility] Comment on above:Performed By: #### CBC #### [facility] [address] [address] [address] Ekta Olivares %1.0 %Critically high0.0-0.5The [facility] HospitalComment on above:Performed By: #### CBC #### [facility] [address] [address] [address] Ekta Putnam #1.5 103/ulNormal1.2-3.8The [facility] HospitalComment on above:Performed By: #### CBC #### [facility] [address] [place] [address] Dr. Ekta Lundberghocytes/100 WBC (Bld)14.9 %Critically low20.5-60.0The [facility] HospitalComment on above:Performed By: #### CBC #### [facility] [address] [place] [address] Dr. Ekta Beckham DIFF REQNONormalThe [facility] HospitalComment on above: Performed By: #### CBC #### [facility] [address] [place] [address] Dr. Ekta Frye (RBC) [Entitic mass]32.8 ffTaeqmx08.7-34.0The [facility] HospitalComment on above:Performed By: #### CBC #### [facility] [address] [place] [address] Dr. Ekta Oconnor (RBC) [Mass/Vol]33.8 g/kPEfddre22.9-35.2The [facility] HospitalComment on above:Performed By: #### CBC #### [facility] [address] [place] [address] Dr. Ekta Oconnor (RBC) [Entitic vol]97.1 gMXjkpks75.0-99.0[facility] HospitalComment on above:Performed By: #### CBC #### [facility] [address] [place] [address] Dr. Ekta Rivas #0.8 103/ulNormal0.3-0.8The [facility] HospitalComment on above:Performed By: #### CBC #### [facility] [address] [place] [address] Dr. Ekta Perkinsocytes/100 WBC (Bld)7.7 %Normal1.7-12.0[facility] Comment on above:Performed By: #### CBC #### [facility] [address] [place] [address] Dr. Ekta Salazar #7.3 103/ulCritically high1.4-6.5The [facility] Comment on above:Performed By: #### CBC #### [facility] [address] [place] [address] Dr. Ekta Dimasutrophils/100 WBC (Bld)72.1 %Evpzsn19.0-75.0The [facility] HospitalComment on above:Performed By: #### CBC #### [facility] [address] [place] [address] Dr. Ekta Salomonlet mean volume (Bld) [Entitic vol]9.4 fLCritically low 9.5-13.5The [facility] HospitalComment on above:Performed By: #### CBC #### [facility] [address] [place] [address] Dr. Ekta FunkPLT251 103/tkRsmcor658-540Zel [facility] HospitalComment on above: Performed By: #### CBC #### [facility] [address] [place] [address] Dr. Ekta AllenC3.78 106/ulCritically low4.20-5.40The [facility] HospitalComment on above:Performed By: #### CBC #### [facility] [address] [place] [address] Dr. Ekta FunkWBC10.1 103/ulNormal4.0-11.0The [facility] HospitalComment on above:Performed By: #### CBC #### [facility] [address] [place] [address] Dr. Ekta Correa THYROXINE INDEX T7on 86-66-3214GXZ4.41Bfphrp6.30-4.50The [facility] HospitalComment on above:Performed By: #### INSULIN #### [facility] [address] [address] [address] Ekta FunkT3U35.0 %Umnsgj49.0-39.0The [facility] HospitalComment on above: Performed By: #### INSULIN #### [facility] [address] [address] [address] Ekta FunkT4 [Mass/Vol]7.80 ug/dLNormal4.80-13.90The [facility] Comment on above:Performed By: #### INSULIN #### [facility] [address] [place] [address] Dr. Ekta FunkGLYCOHEMOGLOBIN A1Con 66-70-1252DJM RECOMMENDATIONSEE BELOWNormal The [facility] HospitalComment on above:Result Comment: ADA RECOMMENDED LIMIT 4.0 - 6.0 ADA THERAPEUTIC TARGET < 7.0 ACTION SUGGESTED > 7.0Performed By: #### B12FOL, VITAD, IRON #### [facility] [address] [place] [address] Dr. Ekta FunkGlucose [Mass/Vol]134 mg/dLNormalThe [facility] HospitalComment on above:Performed By: #### B12FOL, VITAD, IRON #### [facility] [address] [place] [address] Dr. Ekta FunkHbA1c (Bld) [Mass fraction]6.3 %Critically high4.5-6.2The [facility] HospitalComment on above:Performed By: #### B12FOL, VITAD, IRON #### [facility] [address] [place] [address] Dr. Ekta Shannon 99-66-7349Zkcx [Mass/Vol]55.0 ug/lLCzkdnq05.0-170.0The [facility] HospitalComment on above:Performed By: #### B12FOL, VITAD, IRON #### [facility] [address] [place] [address] Dr. Ekta FunkLIPID PROFILEon 23-35-0945XVNA-HDL RATIO NORMSCincinnati Shriners HospitalComforest health medical center on above:Result Comment: 3.3 - 4.4 LOW RISK 4.4 - 7.1 AVERAGE RISK 7.1 - 11.0 MODERATE RISK >11.0 HIGH RISKPerformed By: #### INSULIN #### [facility] [address] [address] [address] Ekta FunkCholesterol [Mass/Vol]294 mg/dLCritically high<=200The [facility] on above:Performed By: #### INSULIN #### [facility] [address] [address] [address] Ekta FunkCholesterol in HDL [Mass/Vol]64 mg/dLCritically lhjv07-97VunCleveland Clinic Luther[facility] Hospital on above:Performed By: #### INSULIN #### [facility] [address] [address] [address] Ekta FunkCholesterol in LDL [Mass/Vol]197.2 mg/dLWayne Hospital on above:Performed By: #### INSULIN #### [facility] [address] [address] [address] Ekta FunkCholestertracy.total/Cholesterol in HDL [Mass ratio]4.6 {ratio} NormalCleveland Clinic Lutheran Hospital on above:Performed By: #### INSULIN #### [facility] [address] [place] [address] Dr. Ekta FunkHDL NORMAL> or = 60 mg/dl - LOW CARDIOVASCULAR RISK <40 mg/dl - HIGH CARDIOVASCULAR RISKOhio Valley Surgical HospitalComforest health medical center on above:Performed By: #### INSULIN #### [facility] [address] [address] [address] Ekta FunkLDL CALC NORMALSEE [facility]Com[facility] on above:Result Comment: <100 mg/dl OPTIMAL 100 - 129 mg/dl NEAR OR ABOVE OPTIMAL 130 - 159 mg/dl BORDERLINE HIGH 160 - 189 mg/dl HIGH >190 mg/dl VERY HIGH Performed By: #### INSULIN #### [facility] [address] [place] [address] Dr. Ekta FunkTriglyceride [Mass/Vol]164 mg/dLCritically high<=150The [facility] HospitalComment on above:Performed By: #### INSULIN #### [facility] [address] [place] [address] Dr. Ekta FunkVLDL CALC32.8 mg/dLNormalThe [facility] HospitalComment on above: Performed By: #### INSULIN #### [facility] [address] [place] [address] Dr. Ekta FunkPROF 14(COMP METB)on [id number] [Mass/Vol]3.0 g/dL Critically low3.4-5.0The [facility] HospitalComment on above:Performed By: #### INSULIN #### [facility] [address] [place] [address] Dr. Ekta FunkAlbumin/Globulin [Mass ratio]0.6 {ratio}NormalThe [facility] HospitalComment on above:Performed By: #### INSULIN #### [facility] [address] [place] [address] Dr. Ekta Cowart [Catalytic activity/Vol]92 U/QIxxrdu21-949Prr [facility] HospitalComment on above:Performed By: #### INSULIN #### [facility] [address] [place] [address] Dr. Ekta Mccormick [Catalytic activity/Vol]26 U/CAijzhu44-93Rqm [facility] HospitalComment on above:Performed By: #### INSULIN #### [facility] [address] [place] [address] Dr. Ekta Harrison gap [Moles/Vol]16.2 mmol/LNormalThe [facility] Comment on above:Performed By: #### INSULIN #### [facility] [address] [place] [address] Dr. Ekta FunkAST [Catalytic activity/Vol]16 U/BEfbtew86-62Mki [facility] HospitalComment on above:Performed By: #### INSULIN #### [facility] [address] [address] [address] Ekta FunkBilirubin [Mass/Vol]0.5 mg/dLNormal0.2-1.0The [facility] Comment on above:Performed By: #### INSULIN #### [facility] [address] [place] [address] Dr. Ekta FunkCalcium [Mass/Vol]9.7 mg/dLNormal8.5-10.1The [facility] Comment on above:Performed By: #### INSULIN #### [facility] [address] [place] [address] Dr. Ekta FunkChloride [Moles/Vol]105 mmol/LSbtank02-503Jrd [facility] Comment on above:Performed By: #### INSULIN #### [facility] [address] [place] [address] Dr. Ekta FunkCO2 [Moles/Vol]24.9 mmol/TFixnbr73.0-32.0The [facility] Comment on above:Performed By: #### INSULIN #### [facility] [address] [place] [address] Dr. Ekta FunkCreatinine [Mass/Vol]2.18 mg/dLCritically high0.55-1.02The [facility] HospitalComment on above:Performed By: #### INSULIN #### [facility] [address] [place] [address] Dr. Ekta AbebeGFR-AF ULUDZWOZ25 mL/min/1.06l8Jyfcnqxrpw low>=60The [facility] HospitalComment on above:Performed By: #### INSULIN #### [facility] [address] [place] [address] Dr. Ekta AbebeGFR-NON AF WMMJUDGC30 mL/min/1.25z2Zhnhnjkyjx low>=60The [facility] HospitalComment on above:Performed By: #### INSULIN #### [facility] [address] [place] [address] Dr. Ekta FunkGlobulin (S) [Mass/Vol]4.7 g/dLNormalThe [facility] HospitalComment on above:Performed By: #### INSULIN #### [facility] [address] [place] [address] Dr. Ekta FunkGlucose [Mass/Vol]114 mg/dLCritically gwet88-107Ang [facility] HospitalComment on above:Performed By: #### INSULIN #### [facility] [address] [address] [address] Ekta FunkPotassium [Moles/Vol]5.1 mmol/LNormal3.5-5.1[facility] Comment on above:Performed By: #### INSULIN #### [facility] [address] [address] [address] Ekta FunkProtein [Mass/Vol]7.7 g/dLNormal6.4-8.2[facility] Comment on above:Performed By: #### INSULIN #### [facility] [address] [place] [address] Dr. Ekta FunkSodium [Moles/Vol]141 mmol/YQqeyyg658-257Lqn [facility] Comment on above:Performed By: #### INSULIN #### [facility] [address] [place] [address] Dr. Ekta FunkUrea nitrogen [Mass/Vol]51.0 mg/dLCritically high7.0-18.0The [facility] HospitalComment on above:Performed By: #### INSULIN #### [facility] [address] [place] [address] Dr. Ekta Spring nitrogen/Creatinine [Mass ratio]23.4 mg/mgNormalThe [facility] HospitalComment on above:Performed By: #### INSULIN #### [facility] [address] [place] [address] Dr. Ekta oDanHorama 30-56-5018SFU3.935 uIU/mLNormal0.358-3.740[facility] HospitalComment on above:Performed By: #### INSULIN #### [facility] [address] [place] [address] Dr. Ekta FunkXR CHEST 2 Von [id number] CHEST 2 VEXAMINATION: XR CHEST 2 V [...] Electronically authenticated by: GODWIN BECK Date: 2022-11-13 15:40[facility] HospitalPR[facility](COMP METB)on [id number] [Mass/Vol]3.0 g/dL Critically low3.4-5.0The [facility] HospitalComment on above:Performed By: #### B12FOL, VITAD, IRON #### [facility] [address] [place] [address] Dr. Ekta FunkAlbumin/Globulin [Mass ratio]0.7 {ratio}NormalThe [facility] HospitalComment on above:Performed By: #### B12FOL, VITAD, IRON #### [facility] [address] [place] [address] Dr. Ekta Cowart [Catalytic activity/Vol]89 U/UOtssdc53-778Ety [facility] HospitalComment on above:Performed By: #### B12FOL, VITAD, IRON #### [facility] [address] [place] [address] Dr. Ekta Mccormick [Catalytic activity/Vol]29 U/MRpppwn80-64Zou [facility] HospitalComment on above:Performed By: #### B12FOL, VITAD, IRON #### [facility] [address] [place] [address] Dr. Ekta Harrison gap [Moles/Vol]15.2 mmol/LNormalThe [facility] Comment on above:Performed By: #### B12FOL, VITAD, IRON #### [facility] [address] [place] [address] Dr. Ekta Gonzalez [Catalytic activity/Vol]14 U/LCritically uxp94-54Siu [facility] HospitalComment on above:Performed By: #### B12FOL, VITAD, IRON #### [facility] [address] [place] [address] Dr. Yilan ChangBilirubin [Mass/Vol]0.4 mg/dLNormal0.2-1.0[facility] Comment on above:Performed By: #### B12FOL, VITAD, IRON #### [facility] [address] [place] [address] Dr. Ekta FunkCalcium [Mass/Vol]9.1 mg/dLNormal8.5-10.1[facility] Comment on above:Performed By: #### B12FOL, VITAD, IRON #### [facility] [address] [place] [address] Dr. Ekta FunkChloride [Moles/Vol]106 mmol/ENsumro74-985UcpMercy Health [facility] Hospital Comment on above:Performed By: #### B12FOL, VITAD, IRON #### [facility] [address] [place] [address] Dr. Ekta FunkCO2 [Moles/Vol]24.2 mmol/XJzyqgo86.0-32.0[facility] Comment on above:Performed By: #### B12FOL, VITAD, IRON #### [facility] [address] [place] [address] Dr. Ekta FunkCreatinine [Mass/Vol]1.89 mg/dLCritically high0.55-1.02The [facility] HospitalComment on above:Performed By: #### B12FOL, VITAD, IRON #### [facility] [address] [place] [address] Dr. Ekta AbebeGFR-AF LTMOMULB33 mL/min/1.35g8Loekxpqltw low>=60The [facility] HospitalComment on above:Performed By: #### B12FOL, VITAD, IRON #### [facility] [address] [place] [address] Dr. Ekta AbebeGFR-NON AF QEMMWMPR55 mL/min/1.49o8Knftspfsph low>=60The [facility] HospitalComment on above:Performed By: #### B12FOL, VITAD, IRON #### [facility] [address] [place] [address] Dr. Yilan ChangGlobulin (S) [Mass/Vol]4.1 g/dLNoRiverside Methodist HospitalComment on above:Performed By: #### B12FOL, VITAD, IRON #### [facility] [address] [place] [address] Dr. Ekta FunkGlucose [Mass/Vol]108 mg/dLCritically hqzq83-158Ddu [facility] HospitalComment on above:Performed By: #### B12FOL, VITAD, IRON #### [facility] [address] [address] [address] Ekta FunkPotassium [Moles/Vol]4.4 mmol/LNormal3.5-5.1The [facility] Comment on above:Performed By: #### B12FOL, VITAD, IRON #### [facility] [address] [place] [address] Dr. Ekta FunkProtein [Mass/Vol]7.1 g/dLNormal6.4-8.2The [facility] Comment on above:Performed By: #### B12FOL, VITAD, IRON #### [facility] [address] [place] [address] Dr. Ekta FunkSodium [Moles/Vol]141 mmol/GGxevdo201-610Hkx [facility] Comment on above:Performed By: #### B12FOL, VITAD, IRON #### [facility] [address] [place] [address] Dr. Ekta FunkUrea nitrogen [Mass/Vol]40.0 mg/dLCritically high7.0-18.0The [facility] HospitalComment on above:Performed By: #### B12FOL, VITAD, IRON #### [facility] [address] [place] [address] Dr. Ekta FunkUrea nitrogen/Creatinine [Mass ratio]21.2 mg/mgNoRiverside Methodist HospitalComment on above:Performed By: #### B12FOL, VITAD, IRON #### [facility] [address] [place] [address] Dr. Ekta Vaughan [id number] peptide B (Bld) [Mass/Vol]507.0 pg/mL Normal<=900.0The [facility] HospitalComment on above:Performed By: #### B12FOL, VITAD, IRON #### [facility] [address] [place] [address] Dr. Ekta Agarwal AUTO DIFFon [id number] #0.0 103/ulNormal0.0-0.1The [facility] HospitalComment on above:Performed By: #### CBC #### [facility] [address] [place] [address] Dr. Ekta FunkBasophils/100 WBC (Bld)0.2 %Normal0.2-2.0The [facility] Comment on above:Performed By: #### CBC #### [facility] [address] [place] [address] Dr. Ekta Anthony #0.1 103/ulNormal0.0-0.7The [facility] HospitalComment on above: Performed By: #### CBC #### [facility] [address] [place] [address] Dr. Ekta Abebeosinophils/100 WBC (Bld)1.1 %Normal0.9-7.0The [facility] Comment on above:Performed By: #### CBC #### [facility] [address] [place] [address] Dr. Ekta Abeberythrocyte distribution width (RBC) [Ratio]12.8 %Flitor53.0-15.0 The [facility] HospitalComment on above:Performed By: #### CBC #### [facility] [address] [place] [address] Dr. Ekta FunkHematocrit (Bld) [Volume fraction]37.1 %Zgoxvy95.0-48.0The [facility] HospitalComment on above:Performed By: #### CBC #### [facility] [address] [place] [address] Dr. Ekta FunkHemoglobin (Bld) [Mass/Vol]13.0 g/mIWboleg21.0-16.0The [facility] HospitalComment on above:Performed By: #### CBC #### [facility] [address] [address] [address] Ekta Olivares #0.11 10e3/ulCritically high0.00-0.03The [facility] Comment on above:Performed By: #### CBC #### [facility] [address] [address] [address] Ekta Olivares %1.1 %Critically high0.0-0.5The [facility] HospitalComment on above:Performed By: #### CBC #### [facility] [address] [place] [address] Dr. Ekta Putnam #1.6 103/ulNormal1.2-3.8The [facility] HospitalComment on above:Performed By: #### CBC #### [facility] [address] [place] [address] Dr. Ekta Lundberghocytes/100 WBC (Bld)15.6 %Critically low20.5-60.0The [facility] HospitalComment on above:Performed By: #### CBC #### [facility] [address] [place] [address] Dr. Ekta MaloneUAL DIFF REQNONormalThe [facility] HospitalComment on above: Performed By: #### CBC #### [facility] [address] [place] [address] Dr. Ekta Oconnor (RBC) [Entitic mass]32.8 fcMbzrhq57.7-34.0The [facility] HospitalComment on above:Performed By: #### CBC #### [facility] [address] [place] [address] Dr. Ekta Oconnor (RBC) [Mass/Vol]35.0 g/yCFxsjnx64.9-35.2The [facility] HospitalComment on above:Performed By: #### CBC #### [facility] [address] [place] [address] Dr. Ekta Oconnor (RBC) [Entitic vol]93.7 qNPijsdw89.0-99.0The [facility] HospitalComment on above:Performed By: #### CBC #### [facility] [address] [address] [address] Ekta Rivas #0.9 103/ulCritically high0.3-0.8The [facility] Comment on above:Performed By: #### CBC #### [facility] [address] [address] [address] Ekta Perkinsocytes/100 WBC (Bld)8.3 %Normal1.7-12.0[facility] Comment on above:Performed By: #### CBC #### [facility] [address] [place] [address] Dr. Ekta Salazar #7.5 103/ulCritically high1.4-6.5ThAs[facility] Comment on above:Performed By: #### CBC #### [facility] [address] [place] [address] Dr. Ekta Dimasutrophils/100 WBC (Bld)73.7 %Jiwjzd11.0-75.0The [facility] HospitalComment on above:Performed By: #### CBC #### [facility] [address] [place] [address] Dr. Ekta Salomonlet mean volume (Bld) [Entitic vol]10.3 fLNormal9.5-13.5ThAshtabula County Medical CenterComment on above:Performed By: #### CBC #### [facility] [address] [place] [address] Dr. Ekta FunkPLT135 103/ulCritically hdk421-681Obt [facility] HospitalComment on above:Performed By: #### CBC #### [facility] [address] [place] [address] Dr. Ekta FunkRBC3.96 106/ulCritically low4.20-5.40The [facility] HospitalComment on above:Performed By: #### CBC #### [facility] [address] [place] [address] Dr. Ekta FunkWBC10.2 103/ulNormal4.0-11.0The [facility] HospitalComment on above:Performed By: #### CBC #### [facility] [address] [place] [address] Dr. Ekta Pal 14(COMP METB)on [id number] [Mass/Vol]2.7 g/dL Critically low3.4-5.0The [facility] HospitalComment on above:Performed By: #### B12FOL, VITAD, IRON #### [facility] [address] [place] [address] Dr. Ekta FunkAlbumin/Globulin [Mass ratio]0.8 {ratio}NormalThe [facility] HospitalComment on above:Performed By: #### B12FOL, VITAD, IRON #### [facility] [address] [place] [address] Dr. Ekta Cowart [Catalytic activity/Vol]74 U/LXfkfta59-702Dgm [facility] HospitalComment on above:Performed By: #### B12FOL, VITAD, IRON #### [facility] [address] [place] [address] Dr. Ekta Mccormick [Catalytic activity/Vol]26 U/LDzlgbp83-26Pfg [facility] HospitalComment on above:Performed By: #### B12FOL, VITAD, IRON #### [facility] [address] [place] [address] Dr. Ekta Harrison gap [Moles/Vol]16.5 mmol/LNormalThe [facility] Comment on above:Performed By: #### B12FOL, VITAD, IRON #### [facility] [address] [place] [address] Dr. Ekta Gonzalez [Catalytic activity/Vol]15 U/DXbzjjv00-97Fpz [facility] HospitalComment on above:Performed By: #### B12FOL, VITAD, IRON #### [facility] [address] [place] [address] Dr. Ekta FunkBilirubin [Mass/Vol]0.4 mg/dLNormal0.2-1.0The [facility] Comment on above:Performed By: #### B12FOL, VITAD, IRON #### [facility] [address] [address] [address] Ekta FunkCalcium [Mass/Vol]8.1 mg/dLCritically low8.5-10.1The [facility] HospitalComment on above:Performed By: #### B12FOL, VITAD, IRON #### [facility] [address] [address] [address] Ekta FunkChloride [Moles/Vol]96 mmol/LCritically bcp28-003Bys [facility] HospitalComment on above:Performed By: #### B12FOL, VITAD, IRON #### [facility] [address] [place] [address] Dr. Ekta FunkCO2 [Moles/Vol]26.1 mmol/LFjktmq74.0-32.0The [facility] Comment on above:Performed By: #### B12FOL, VITAD, IRON #### [facility] [address] [place] [address] Dr. Ekta FunkCreatinine [Mass/Vol]3.28 mg/dLCritically high0.55-1.02The [facility] HospitalComment on above:Performed By: #### B12FOL, VITAD, IRON #### [facility] [address] [place] [address] Dr. Ekta Ro-AF VKQDNSGQ76 mL/min/1.44t9Nyxrrolste low>=60The [facility] HospitalComment on above:Performed By: #### B12FOL, VITAD, IRON #### [facility] [address] [place] [address] Dr. Ekta Ro-NON AF CIFTMZIY86 mL/min/1.43i9Ajganoysns low>=60The [facility] HospitalComment on above:Performed By: #### B12FOL, VITAD, IRON #### [facility] [address] [place] [address] Dr. Ekta FunkGlobulin (S) [Mass/Vol]3.6 g/dLNormalThe [facility] HospitalComment on above:Performed By: #### B12FOL, VITAD, IRON #### [facility] [address] [place] [address] Dr. Ekta FunkGlucose [Mass/Vol]132 mg/dLCritically shbk74-117Kme [facility] HospitalComment on above:Performed By: #### B12FOL, VITAD, IRON #### [facility] [address] [address] [address] Ekta FunkPotassium [Moles/Vol]4.6 mmol/LNormal3.5-5.1The [facility] Comment on above:Performed By: #### B12FOL, VITAD, IRON #### [facility] [address] [address] [address] Ekta FunkProtein [Mass/Vol]6.3 g/dLCritically low6.4-8.2The [facility] HospitalComment on above:Performed By: #### B12FOL, VITAD, IRON #### [facility] [address] [place] [address] Dr. Ekta FunkSodium [Moles/Vol]134 mmol/LCritically pjr023-083Enk [facility] HospitalComment on above:Performed By: #### B12FOL, VITAD, IRON #### [facility] [address] [place] [address] Dr. Ekta FunkUrea nitrogen [Mass/Vol]74.0 mg/dLCritically high7.0-18.0The [facility] HospitalComment on above:Performed By: #### B12FOL, VITAD, IRON #### [facility] [address] [address] [address] Ekta Spring nitrogen/Creatinine [Mass ratio]22.6 mg/mgNormalThe [facility] HospitalComment on above:Performed By: #### B12FOL, VITAD, IRON #### [facility] [address] [place] [address] Dr. Ekta Vaughan 41-08-9807Pdqgsldepzd peptide B (Bld) [Mass/Vol]1411.0 pg/mLCritically high<=900.0The [facility] HospitalComment on above:Performed By: #### B12FOL, VITAD, IRON #### [facility] [address] [place] [address] Dr. Ekta Agarwal AUTO DIFFon [id number] #0.0 103/ulNormal0.0-0.1The [facility] Centerment on above:Performed By: #### B12FOL, VITAD, IRON #### [facility] [address] [place] [address] Dr. Ekta FunkBasophils/100 WBC (Bld)0.3 %Normal0.2-2.0The [facility] Comment on above:Performed By: #### B12FOL, VITAD, IRON #### [facility] [address] [place] [address] Dr. Ekta Anthony #0.1 103/ulNormal0.0-0.7The [facility] Centerment on above: Performed By: #### B12FOL, VITAD, IRON #### [facility] [address] [place] [address] Dr. Ekta Abebeosinophils/100 WBC (Bld)0.6 %Critically low0.9-7.0The [facility] HospitalComment on above:Performed By: #### B12FOL, VITAD, IRON #### [facility] [address] [place] [address] Dr. Ekta Abeberythrocyte distribution width (RBC) [Ratio]12.9 %Trirga11.0-15.0 The [facility] Centerment on above:Performed By: #### B12FOL, VITAD, IRON #### [facility] [address] [place] [address] Dr. Ekta FunkHematocrit (Bld) [Volume fraction]40.8 %Tpyyfo31.0-48.0[facility] Hospitalment on above:Performed By: #### B12FOL, VITAD, IRON #### [facility] [address] [place] [address] Dr. Ekta FunkHemoglobin (Bld) [Mass/Vol]14.0 g/iBXnjykc72.0-16.0The [facility] HospitalComment on above:Performed By: #### B12FOL, VITAD, IRON #### [facility] [address] [place] [address] Dr. Ekta Olivares #0.09 10e3/ulCritically high0.00-0.03The [facility] Comment on above:Performed By: #### B12FOL, VITAD, IRON #### [facility] [address] [place] [address] Dr. Ekta Olivares %0.8 %Critically high0.0-0.5The [facility] HospitalComment on above:Performed By: #### B12FOL, VITAD, IRON #### [facility] [address] [place] [address] Dr. Ekta Putnam #1.8 103/ulNormal1.2-3.8The [facility] HospitalComment on above:Performed By: #### B12FOL, VITAD, IRON #### [facility] [address] [place] [address] Dr. Ekta Lundberghocytes/100 WBC (Bld)16.2 %Critically low20.5-60.0The [facility] HospitalComment on above:Performed By: #### B12FOL, VITAD, IRON #### [facility] [address] [place] [address] Dr. Ekta MaloneUAL DIFF REQNONormalThe [facility] HospitalComment on above: Performed By: #### B12FOL, VITAD, IRON #### [facility] [address] [place] [address] Dr. Ekta Frye (RBC) [Entitic mass]32.3 puJsehdi91.7-34.0The [facility] HospitalComment on above:Performed By: #### B12FOL, VITAD, IRON #### [facility] [address] [place] [address] Dr. Ekta Oconnor (RBC) [Mass/Vol]34.3 g/eOMjtlyz15.9-35.2The [facility] HospitalComment on above:Performed By: #### B12FOL, VITAD, IRON #### [facility] [address] [place] [address] Dr. Ekta OconnorV (RBC) [Entitic vol]94.2 mDMaiitc77.0-99.0The [facility] HospitalComment on above:Performed By: #### B12FOL, VITAD, IRON #### [facility] [address] [place] [address] Dr. Ekta Rivas #0.8 103/ulNormal0.3-0.8The [facility] HospitalComment on above:Performed By: #### B12FOL, VITAD, IRON #### [facility] [address] [place] [address] Dr. Ekta Perkinsocytes/100 WBC (Bld)7.3 %Normal1.7-12.0[facility] Comment on above:Performed By: #### B12FOL, VITAD, IRON #### [facility] [address] [place] [address] Dr. Ekta Salazar #8.1 103/ulCritically high1.4-6.5The [facility] Comment on above:Performed By: #### B12FOL, VITAD, IRON #### [facility] [address] [place] [address] Dr. Ekta Dimasutrophils/100 WBC (Bld)74.8 %Bfqyhi24.0-75.0The [facility] HospitalComment on above:Performed By: #### B12FOL, VITAD, IRON #### [facility] [address] [place] [address] Dr. Ekta Trevino mean volume (Bld) [Entitic vol]9.8 fLNormal9.5-13.5ThAshtabula County Medical CenterComment on above:Performed By: #### B12FOL, VITAD, IRON #### [facility] [address] [place] [address] Dr. Ekta FunkPLT226 103/gyWkzxdm829-766Iaf [facility] HospitalComment on above: Performed By: #### B12FOL, VITAD, IRON #### [facility] [address] [place] [address] Dr. Ekta FunkRBC4.33 106/ulNormal4.20-5.40The [facility] HospitalComment on above:Performed By: #### B12FOL, VITAD, IRON #### [facility] [address] [address] [address] Ekta FunkWBC10.9 103/ulNormal4.0-11.0The [facility] HospitalComment on above:Performed By: #### B12FOL, VITAD, IRON #### [facility] [address] [place] [address] Dr. Ekta FunkPROF 14(COMP METB)on 08-69-9822Ivszdpm [Mass/Vol]3.1 g/dL Critically low3.4-5.0The [facility] HospitalComment on above:Performed By: #### B12FOL, VITAD, IRON #### [facility] [address] [place] [address] Dr. Ekta FunkAlbumin/Globulin [Mass ratio]0.7 {ratio}NormalThe [facility] HospitalComment on above:Performed By: #### B12FOL, VITAD, IRON #### [facility] [address] [place] [address] Dr. Ekta Cowart [Catalytic activity/Vol]81 U/AIdwqkt95-926Ijs [facility] Centerment on above:Performed By: #### B12FOL, VITAD, IRON #### [facility] [address] [address] [address] Ekta Mccormick [Catalytic activity/Vol]30 U/IFsqaoo11-72Gyw [facility] Centerment on above:Performed By: #### B12FOL, VITAD, IRON #### [facility] [address] [address] [address] Ekta Harrison gap [Moles/Vol]17.3 mmol/LNormalThe [facility] on above:Performed By: #### B12FOL, VITAD, IRON #### [facility] [address] [place] [address] Dr. Ekta Gonzalez [Catalytic activity/Vol]11 U/LCritically egl56-13WqdMercy Health [facility] HospitalComment on above:Performed By: #### B12FOL, VITAD, IRON #### [facility] [address] [address] [address] Ekta FunkBilirubin [Mass/Vol]0.5 mg/dLNormal0.2-1.0[facility] Comment on above:Performed By: #### B12FOL, VITAD, IRON #### [facility] [address] [address] [address] Ekta FunkCalcium [Mass/Vol]8.6 mg/dLNormal8.5-10.1[facility] Comment on above:Performed By: #### B12FOL, VITAD, IRON #### [facility] [address] [place] [address] Dr. Ekta FunkChloride [Moles/Vol]95 mmol/LCritically olh05-641Xjg [facility] HospitalComment on above:Performed By: #### B12FOL, VITAD, IRON #### [facility] [address] [place] [address] Dr. Ekta FunkCO2 [Moles/Vol]27.3 mmol/FDuqxie19.0-32.0[facility] Comment on above:Performed By: #### B12FOL, VITAD, IRON #### [facility] [address] [place] [address] Dr. Ekta FunkCreatinine [Mass/Vol]3.17 mg/dLCritically high0.55-1.02[facility] HospitalComment on above:Performed By: #### B12FOL, VITAD, IRON #### [facility] [address] [place] [address] Dr. Ekta AbebeGFR-AF OZPFLGPZ97 mL/min/1.07d2Udglfndvlp low>=60The [facility] HospitalComment on above:Performed By: #### B12FOL, VITAD, IRON #### [facility] [address] [place] [address] Dr. Etka AbebeGFR-NON AF EJDFCFPM80 mL/min/1.50u9Uimglooipe low>=60The [facility] Centerment on above:Performed By: #### B12FOL, VITAD, IRON #### [facility] [address] [address] [address] Ekta FunkGlobulin (S) [Mass/Vol]4.6 g/dLNoRiverside Methodist HospitalComment on above:Performed By: #### B12FOL, VITAD, IRON #### [facility] [address] [place] [address] Dr. Ekta FunkGlucose [Mass/Vol]139 mg/dLCritically fiym73-903Rzk [facility] HospitalComment on above:Performed By: #### B12FOL, VITAD, IRON #### [facility] [address] [place] [address] Dr. Ekta FunkPotassium [Moles/Vol]4.6 mmol/LNormal3.5-5.1The [facility] Comment on above:Performed By: #### B12FOL, VITAD, IRON #### [facility] [facility] [address] [place] [address] Dr. Ekta FunkProtein [Mass/Vol]7.7 g/dLNormal6.4-8.2The [facility] Comment on above:Performed By: #### B12FOL, VITAD, IRON #### [facility] [address] [place] [address] Dr. Ekta FunkSodium [Moles/Vol]135 mmol/LCritically yyf843-669Tcr [facility] HospitalComment on above:Performed By: #### B12FOL, VITAD, IRON #### [facility] [address] [place] [address] Dr. Ekta FunkUrea nitrogen [Mass/Vol]73.0 mg/dLCritically high7.0-18.0The [facility] HospitalComment on above:Performed By: #### B12FOL, VITAD, IRON #### [facility] [address] [place] [address] Dr. Ekta FunkUrea nitrogen/Creatinine [Mass ratio]23.0 mg/mgNoRiverside Methodist HospitalComment on above:Performed By: #### B12FOL, VITAD, IRON #### [facility] [address] [place] [address] Dr. Ekta Vaughan [id number] peptide B (Bld) [Mass/Vol]2007.0 pg/mLCritically high<=900.0The [facility] HospitalComment on above:Performed By: #### CMP #### [facility] [address] [place] [address] Dr. Ekta Agarwal AUTO DIFFon [id number] #0.0 103/ulNormal0.0-0.1The [facility] HospitalComment on above:Performed By: #### CBC #### [facility] [address] [place] [address] Dr. Ekta FunkBasophils/100 WBC (Bld)0.2 %Normal0.2-2.0[facility] Comment on above:Performed By: #### CBC #### [facility] [address] [place] [address] Dr. Ekta Anthony #0.1 103/ulNormal0.0-0.7The [facility] HospitalComment on above: Performed By: #### CBC #### [facility] [address] [place] [address] Dr. Ekta Abebeosinophils/100 WBC (Bld)0.9 %Normal0.9-7.0The [facility] Comment on above:Performed By: #### CBC #### [facility] [address] [place] [address] Dr. Ekta Abeberythrocyte distribution width (RBC) [Ratio]12.8 %Phzjmq03.0-15.0 The [facility] HospitalComment on above:Performed By: #### CBC #### [facility] [address] [place] [address] Dr. Ekta FunkHematocrit (Bld) [Volume fraction]38.8 %Rxjqbq31.0-48.0The [facility] HospitalComment on above:Performed By: #### CBC #### [facility] [address] [address] [address] Ekta FunkHemoglobin (Bld) [Mass/Vol]13.3 g/wGMmzggd33.0-16.0The [facility] HospitalComment on above:Performed By: #### CBC #### [facility] [address] [place] [address] Dr. Ekta Olivares #0.08 10e3/ulCritically high0.00-0.03The [facility] Comment on above:Performed By: #### CBC #### [facility] [address] [place] [address] Dr. Ekta Olivares %0.8 %Critically high0.0-0.5The [facility] HospitalComment on above:Performed By: #### CBC #### [facility] [address] [place] [address] Dr. Ekta Putnam #1.7 103/ulNormal1.2-3.8The [facility] HospitalComment on above:Performed By: #### CBC #### [facility] [address] [place] [address] Dr. Ekta Lundberghocytes/100 WBC (Bld)17.3 %Critically low20.5-60.0The [facility] HospitalComment on above:Performed By: #### CBC #### [facility] [address] [place] [address] Dr. Ekta MaloneUAL DIFF REQNONormalThe [facility] HospitalComment on above: Performed By: #### CBC #### [facility] [address] [place] [address] Dr. Ekta Oconnor (RBC) [Entitic mass]32.1 heYrzvwz39.7-34.0The [facility] HospitalComment on above:Performed By: #### CBC #### [facility] [address] [place] [address] Dr. Ekta Oconnor (RBC) [Mass/Vol]34.3 g/hXWyhcfz32.9-35.2The [facility] HospitalComment on above:Performed By: #### CBC #### [facility] [address] [address] [address] Ekta OconnorV (RBC) [Entitic vol]93.7 kOJqumfl20.0-99.0The [facility] HospitalComment on above:Performed By: #### CBC #### [facility] [address] [place] [address] Dr. Ekta Rivas #0.6 103/ulNormal0.3-0.8The [facility] HospitalComment on above:Performed By: #### CBC #### [facility] [address] [place] [address] Dr. Ekta Perkinsocytes/100 WBC (Bld)6.4 %Normal1.7-12.0The [facility] Comment on above:Performed By: #### CBC #### [facility] [address] [place] [address] Dr. Ekta Salazar #7.4 103/ulCritically high1.4-6.5The [facility] Comment on above:Performed By: #### CBC #### [facility] [address] [place] [address] Dr. Ekta Dimasutrophils/100 WBC (Bld)74.4 %Pbqvzc93.0-75.0The [facility] HospitalComment on above:Performed By: #### CBC #### [facility] [address] [place] [address] Dr. Ekta Salomonlet mean volume (Bld) [Entitic vol]9.8 fLNormal9.5-13.5The [facility] HospitalComment on above:Performed By: #### CBC #### [facility] [address] [place] [address] Dr. Ekta FunkPLT193 103/jpIeggxw423-275Nwf [facility] HospitalComment on above: Performed By: #### CBC #### [facility] [address] [place] [address] Dr. Ekta FunkRBC4.14 106/ulCritically low4.20-5.40The [facility] HospitalComment on above:Performed By: #### CBC #### [facility] [address] [address] [address] Ekta FunkWBC9.9 103/ulNormal4.0-11.0The [facility] HospitalComment on above: Performed By: #### CBC #### [facility] [address] [address] [address] Ekta FunkPROF 14(COMP METB)on 88-94-0849Dnqcyfw [Mass/Vol]3.2 g/dL Critically low3.4-5.0The [facility] HospitalComment on above:Performed By: #### INSULIN #### [facility] [address] [address] [address] Ekta FunkAlbumin/Globulin [Mass ratio]0.8 {ratio}NormalThe [facility] HospitalComment on above:Performed By: #### INSULIN #### [facility] [address] [place] [address] Dr. Ekta Cowart [Catalytic activity/Vol]82 U/SQfgkwl45-816Muj [facility] HospitalComment on above:Performed By: #### INSULIN #### [facility] [address] [address] [address] Ekta Mccormick [Catalytic activity/Vol]38 U/RElbrkr32-30Qkt [facility] Centerment on above:Performed By: #### INSULIN #### [facility] [address] [place] [address] Dr. Ekta Harrison gap [Moles/Vol]19.1 mmol/LNormalThe [facility] Comment on above:Performed By: #### INSULIN #### [facility] [address] [place] [address] Dr. Ekta FunkAST [Catalytic activity/Vol]19 U/XKqmnho28-17Pae [facility] HospitalComment on above:Performed By: #### INSULIN #### [facility] [address] [place] [address] Dr. Ekta FunkBilirubin [Mass/Vol]0.4 mg/dLNormal0.2-1.0The [facility] Comment on above:Performed By: #### INSULIN #### [facility] [address] [address] [address] Ekta FunkCalcium [Mass/Vol]9.2 mg/dLNormal8.5-10.1The [facility] Comment on above:Performed By: #### INSULIN #### [facility] [address] [address] [address] Ekta FunkChloride [Moles/Vol]98 mmol/SBzeemf56-103Rpu [facility] Comment on above:Performed By: #### INSULIN #### [facility] [address] [address] [address] Ekta FunkCO2 [Moles/Vol]26.4 mmol/JEnvhdt21.0-32.0The [facility] Comment on above:Performed By: #### INSULIN #### [facility] [address] [address] [address] Ekta FunkCreatinine [Mass/Vol]2.20 mg/dLCritically high0.55-1.02The [facility] HospitalComment on above:Performed By: #### INSULIN #### [facility] [address] [address] [address] Dash ChangEGFR-AF KCRWOVCR58 mL/min/1.48g6Jfwvujbexz low>=60The [facility] HospitalComment on above:Performed By: #### INSULIN #### [facility] [address] [address] [address] Ekta AbebeGFR-NON AF PDHSZQWS01 mL/min/1.42j9Uxwbgspezw low>=60The [facility] HospitalComment on above:Performed By: #### INSULIN #### [facility] [address] [address] [address] Ekta FunkGlobulin (S) [Mass/Vol]3.8 g/dLNormalThe [facility] HospitalComment on above:Performed By: #### INSULIN #### [facility] [address] [address] [address] Ekta FunkGlucose [Mass/Vol]142 mg/dLCritically pemx47-871Gqo [facility] HospitalComment on above:Performed By: #### INSULIN #### [facility] [address] [address] [address] Ekta FunkPotassium [Moles/Vol]4.5 mmol/LNormal3.5-5.1The [facility] Comment on above:Performed By: #### INSULIN #### [facility] [address] [address] [address] Ekta FunkProtein [Mass/Vol]7.0 g/dLNormal6.4-8.2The [facility] Comment on above:Performed By: #### INSULIN #### [facility] [address] [address] [address] Ekta FunkSodium [Moles/Vol]139 mmol/RWhgdhm442-071Jjl [facility] Comment on above:Performed By: #### INSULIN #### [facility] [address] [address] [address] Ekta FunkUrea nitrogen [Mass/Vol]57.0 mg/dLCritically high7.0-18.0The [facility] HospitalComment on above:Performed By: #### INSULIN #### [facility] [address] [address] [address] Ekta Spring nitrogen/Creatinine [Mass ratio]25.9 mg/mgNormalThe [facility] HospitalComment on above:Performed By: #### INSULIN #### [facility] [address] [address] [address] Ekta FunkT3, TOTAL (TRIIODOTHYRONINE)on 31-60-5871Z3, TOTAL63 ng/dL Critically ihe45-377Ixh [facility] HospitalComment on above:Performed By: #### CMP #### [facility] [address] [address] [address] Ekta FunkXR ABD FLAT_UPon [id number] ABD FLAT_UPEXAMINATION: XR ABD FLAT_UP HISTORY: Generalized abdominal pain , shortness of breath COMPARISON: No relevant comparison available. FINDINGS: BOWEL GAS PATTERN: Non-obstructed. FREE AIR: None. CALCIFICATIONS: None significant. BONES: Mild left convex curvature lumbar spine. No appreciable fracture. OTHER: Negative. IMPRESSION: 1. Normal bowel gas pattern. No suspicious abdominal findings. Electronically authenticated by: DANIEL PINEDA Date: 2022-10-21 11:42[facility] HospitalXR [facility] 2 Von [id number] CHEST 2 VEXAM: XR CHEST 2 V, [...] Electronically authenticated by: CHRISTIANO MORALES Date: 2022-10-21 11:23[facility] HospitalBNPon 07-61-7982Qoekxitnitx peptide B (Bld) [Mass/Vol]2512.0 pg/mLCritically high<=900.0The [facility] HospitalComment on above:Performed By: #### B12FOL, VITAD, IRON #### [facility] [address] [address] [address] Ekta Hale BRITTANIE ADMITon 60-36-7543ZV [Catalytic activity/Vol]35 U/L Nnqizp73-694Kbd [facility] HospitalComment on above:Performed By: #### B12FOL, VITAD, IRON #### [facility] [address] [address] [address] Ekta Howell.MB [Mass/Vol]0.64 ng/mLNormal<=3.60[facility] Comment on above:Performed By: #### B12FOL, VITAD, IRON #### [facility] [address] [address] [address] Ekta Carlisle28.1 pg/mLNormal4.0-51.3The [facility] HospitalComment on above:Result Comment: CUT-OFF POINTS HAVE BEEN ESTABLISHED BASED ON THE FOURTH UNIVERSAL DEFINITIONS OF MYOCARDIAL INFARCTION. THE UPPER REFERENCE LIMIT (URL) OF TROPONIN, DEFINED THE 99TH PERCENTILE OF cTnI DISTRIBUTION IN A REFERENCE POPULATION, HAS BEEN CONFIRMED THE DECISION THRESHOLD FOR SD DIAGNOSIS.Performed By: #### B12FOL, VITAD, IRON #### [facility] [address] [address] [address] Ekta FunkMYO57 ng/mLNormal9-82The [facility] on above: Performed By: #### B12FOL, VITAD, IRON #### [facility] [address] [address] [address] Ekta Agarwal AUTO DIFFon [id number] #0.0 103/ulNormal0.0-0.1The [facility] HospitalComment on above:Performed By: #### CBC #### [facility] [address] [place] [address] Dr. Ekta FunkBasophils/100 WBC (Bld)0.2 %Normal0.2-2.0[facility] Comment on above:Performed By: #### CBC #### [facility] [address] [place] [address] Dr. Ekta Anthony #0.2 103/ulNormal0.0-0.7The [facility] HospitalComment on above: Performed By: #### CBC #### [facility] [address] [place] [address] Dr. Ekta Abebeosinophils/100 WBC (Bld)1.4 %Normal0.9-7.0[facility] Comment on above:Performed By: #### CBC #### [facility] [address] [place] [address] Dr. Ekta Abeberythrocyte distribution width (RBC) [Ratio]12.9 %Jyhgus22.0-15.0 [facility] HospitalComment on above:Performed By: #### CBC #### [facility] [address] [place] [address] Dr. Ekta FunkHematocrit (Bld) [Volume fraction]34.7 %Critically low36.0-48.0 [facility] HospitalComment on above:Performed By: #### CBC #### [facility] [address] [place] [address] Dr. Ekta FunkHemoglobin (Bld) [Mass/Vol]11.8 g/dLCritically low12.0-16.0The [facility] HospitalComment on above:Performed By: #### CBC #### [facility] [address] [place] [address] Dr. Ekta Olivares #0.09 10e3/ulCritically high0.00-0.03The [facility] Comment on above:Performed By: #### CBC #### [facility] [address] [place] [address] Dr. Ekta Olivares %0.8 %Critically high0.0-0.5The [facility] HospitalComment on above:Performed By: #### CBC #### [facility] [address] [place] [address] Dr. Ekta Putnam #1.9 103/ulNormal1.2-3.8The [facility] HospitalComment on above:Performed By: #### CBC #### [facility] [address] [place] [address] Dr. Ekta Lundberghocytes/100 WBC (Bld)16.1 %Critically low20.5-60.0The [facility] HospitalComment on above:Performed By: #### CBC #### [facility] [address] [place] [address] Dr. Ekta Beckham DIFF REQNONormalThe [facility] HospitalComment on above: Performed By: #### CBC #### [facility] [address] [place] [address] Dr. Ekta Frye (RBC) [Entitic mass]32.6 nxAhmolp33.7-34.0The [facility] HospitalComment on above:Performed By: #### CBC #### [facility] [address] [place] [address] Dr. Ekta Oconnor (RBC) [Mass/Vol]34.0 g/kLFmkzdx57.9-35.2The [facility] HospitalComment on above:Performed By: #### CBC #### [facility] [address] [place] [address] Dr. Ekta OconnorV (RBC) [Entitic vol]95.9 nKWperxb65.0-99.0The [facility] HospitalComment on above:Performed By: #### CBC #### [facility] [address] [place] [address] Dr. Ekta Rivas #0.8 103/ulNormal0.3-0.8The [facility] HospitalComment on above:Performed By: #### CBC #### [facility] [address] [place] [address] Dr. Ekta Perkinsocytes/100 WBC (Bld)7.0 %Normal1.7-12.0The [facility] Comment on above:Performed By: #### CBC #### [facility] [address] [place] [address] Dr. Ekta Salazar #8.8 103/ulCritically high1.4-6.5The [facility] Comment on above:Performed By: #### CBC #### [facility] [address] [place] [address] Dr. Ekta Dimasutrophils/100 WBC (Bld)74.5 %Irgvap82.0-75.0The [facility] HospitalComment on above:Performed By: #### CBC #### [facility] [address] [place] [address] Dr. Ekta Trevino mean volume (Bld) [Entitic vol]9.8 fLNormal9.5-13.5The [facility] HospitalComment on above:Performed By: #### CBC #### [facility] [address] [place] [address] Dr. Ekta FunkPLT203 103/xiMtnscs967-255Bnw [facility] HospitalComment on above: Performed By: #### CBC #### [facility] [address] [place] [address] Dr. Ekta FunkRBC3.62 106/ulCritically low4.20-5.40The [facility] HospitalComment on above:Performed By: #### CBC #### [facility] [address] [place] [address] Dr. Ekta FunkWBC11.8 103/ulCritically high4.0-11.0The [facility] HospitalComment on above:Performed By: #### CBC #### [facility] [address] [place], [place] [address] Dr. Ekta FunkCULTURE URINEon 97-37-0469EEUXKNY URINECulture Observations: NO GROWTH.NormalThe [facility] HospitalComment on above:Performed By: #### INSULIN #### [facility] [address] [place], [place] [address] Dr. Ekta FunkCovid-19 PCR (CVDTBH)on 67-53-3141NHOJ-CoV-2 (COVID-19) RNA GANESH+probe Ql (Unsp spec)Not detectedNormalNOT DETECTEDThe [facility] Comment on above:Result Comment: When diagnostic [...] for this test is supported by the [place] of Health and Human Service's declaration that [...] used).Performed By: #### B12FOL, VITAD, IRON #### [facility] [address] [place], [place] [address] Dr. Ekta AbebeCHOCARDIO M/2D COMPLETEon 10-40-9365LSHIZJTFMQ M/2D COMPLETE Patient: SHEILA MAC Exam Date: 10/20/2022 : 1950 Gender:F Ordering : DR KRZYSZTOF THOMPSON . Admission #: [id number] Family : Order #: [id number] CLICK HERE TO VIEW EXAM ECHOCARDIOGRAM REPORT [...] by: Sylwia Mckay M.D. on 10/20/2022 at 14:57[facility] HospitalPROF 14(COMP METB)on 49-19-4947Ilfddit [Mass/Vol]2.8 g/dLCritically low 3.4-5.0The [facility] Centerment on above:Performed By: #### B12FOL, VITAD, IRON #### [facility] [address] [place] [address] Dr. Ekta FunkAlbumin/Globulin [Mass ratio]0.7 {ratio}NormalThe [facility] HospitalComforest health medical center on above:Performed By: #### B12FOL, VITAD, IRON #### [facility] [address] [address] [address] Ekta Cowart [Catalytic activity/Vol]84 U/SApcjbt98-291Nab [facility] on above:Performed By: #### B12FOL, VITAD, IRON #### [facility] [address] [address] [address] Ekta Mccormick [Catalytic activity/Vol]29 U/LWjsjtn88-66Zdu [facility] HospitalComment on above:Performed By: #### B12FOL, VITAD, IRON #### [facility] [address] [address] [address] Ekta FunkAnion gap [Moles/Vol]15.9 mmol/LNormalMer[facility] Comment on above:Performed By: #### B12FOL, VITAD, IRON #### [facility] [address] [address] [address] Ekta FunkAST [Catalytic activity/Vol]15 U/FBpgntl42-14Uer [facility] HospitalComment on above:Performed By: #### B12FOL, VITAD, IRON #### [facility] [address] [place] [address] Dr. Ekta FunkBilirubin [Mass/Vol]0.3 mg/dLNormal0.2-1.0[facility] Comment on above:Performed By: #### B12FOL, VITAD, IRON #### [facility] [address] [place] [address] Dr. Ekta FunkCalcium [Mass/Vol]8.9 mg/dLNormal8.5-10.1[facility] Comment on above:Performed By: #### B12FOL, VITAD, IRON #### [facility] [address] [place] [address] Dr. Ekta FunkChloride [Moles/Vol]103 mmol/GIwxgrv76-006YxwMercy Health [facility] Hospital Comment on above:Performed By: #### B12FOL, VITAD, IRON #### [facility] [address] [place] [address] Dr. Ekta FunkCO2 [Moles/Vol]26.3 mmol/NCieqos99.0-32.0[facility] Comment on above:Performed By: #### B12FOL, VITAD, IRON #### [facility] [address] [place] [address] Dr. Ekta FunkCreatinine [Mass/Vol]1.99 mg/dLCritically high0.55-1.02The [facility] HospitalComment on above:Performed By: #### B12FOL, VITAD, IRON #### [facility] [address] [address] [address] Ekta AbebeGFR-AF MRQOFYNH65 mL/min/1.62g8Cxvelijpqk low>=60The [facility] HospitalComment on above:Performed By: #### B12FOL, VITAD, IRON #### [facility] [address] [place] [address] Dr. Ekta AbebeGFR-NON AF KVXEIFSR98 mL/min/1.66w3Trhbetkgst low>=60The [facility] HospitalComment on above:Performed By: #### B12FOL, VITAD, IRON #### [facility] [address] [place] [address] Dr. Ekta FunkGlobulin (S) [Mass/Vol]4.1 g/dLNormalThe [facility] HospitalComment on above:Performed By: #### B12FOL, VITAD, IRON #### [facility] [address] [place] [address] Dr. Ekta FunkGlucose [Mass/Vol]115 mg/dLCritically nnrm20-988CctMercy Health Urbana HospitalComment on above:Performed By: #### B12FOL, VITAD, IRON #### [facility] [address] [place] [address] Dr. Ekta FunkPotassium [Moles/Vol]5.2 mmol/LCritically high3.5-5.1[facility] HospitalComment on above:Performed By: #### B12FOL, VITAD, IRON #### [facility] [address] [place] [address] Dr. Ekta FunkProtein [Mass/Vol]6.9 g/dLNormal6.4-8.2[facility] Comment on above:Performed By: #### B12FOL, VITAD, IRON #### [facility] [address] [place] [address] Dr. Ekta FunkSodium [Moles/Vol]140 mmol/YChkets479-183CynMercy Health [facility] Hospital Comment on above:Performed By: #### B12FOL, VITAD, IRON #### [facility] [address] [address] [address] Ekta Spring nitrogen [Mass/Vol]45.0 mg/dLCritically high7.0-18.0The [facility] HospitalComment on above:Performed By: #### B12FOL, VITAD, IRON #### [facility] [address] [place] [address] Dr. Ekta Spring nitrogen/Creatinine [Mass ratio]22.6 mg/mgNormalThe [facility] HospitalComment on above:Performed By: #### B12FOL, VITAD, IRON #### [facility] [address] [place] [address] Dr. Ekta Cloud4on 11-07-8512A2 [Mass/Vol]6.10 ug/dLNormal4.80-13.90The [facility] HospitalComment on above:Performed By: #### B12FOL, VITAD, IRON #### [facility] [address] [place] [address] Dr. Ekta Carmona 59-52-6098WVU2.336 uIU/mLNormal0.358-3.740The [facility] HospitalComment on above:Performed By: #### B12FOL, VITAD, IRON #### [facility] [address] [place] [address] Dr. Ekta Camejo RANDOM W/MICROSCOPICon 09-73-3594OQOQSSKSXBWLUOfmenwynFDMX SEENMercy Health Urbana HospitalComment on above:Performed By: #### B12FOL, VITAD, IRON #### [facility] [address] [place] [address] Dr. Ekta Lopez Ql (U)NegativeNormalNEGATIVEThe [facility] Comment on above:Performed By: #### B12FOL, VITAD, IRON #### [facility] [address] [place] [address] Dr. Ekta Velasquez SEENNormalNONE SEENMercy Health Urbana HospitalComment on above:Performed By: #### B12FOL, VITAD, IRON #### [facility] [address] [place] [address] Dr. Yilan ChangClarity (U)CLEARNormalCLEARMercy Health Urbana HospitalComment on above: Performed By: #### B12FOL, VITAD, IRON #### [facility] [address] [address] Dr. Ekta Boothe (U)LT. YELLOWNormalYELLOWMercy Health Urbana HospitalComment on above:Performed By: #### B12FOL, VITAD, IRON #### [facility] [address] [address] [address] Ekta FunkCrystals LM Nom (Urine sed)NONE SEENNormalNONE SEENMercy Health Urbana HospitalComment on above:Performed By: #### B12FOL, VITAD, IRON #### [facility] [address] [place] [address] Dr. Dash ChangEpithelial cells LM Ql (Urine sed)RARENormalNONE SEEN /RAREMercy Health Urbana HospitalComment on above:Performed By: #### B12FOL, VITAD, IRON #### [facility] [address] [place] [address] Dr. Ekta FunkGlucose Ql (U)NegativeNormalNEGATIVEMercy Health Urbana HospitalComment on above:Performed By: #### B12FOL, VITAD, IRON #### [facility] [address] [place] [address] Dr. Ekta FunkHemoglobin Ql (U)NegativeNormalNEGATIVEBluffton Hospital on above:Performed By: #### B12FOL, VITAD, IRON #### [facility] [address] [place] [address] Dr. Ekta FunkKetones Ql (U)NegativeNormalNEGATIVEMercy Health Urbana HospitalComment on above:Performed By: #### B12FOL, VITAD, IRON #### [facility] [address] [place] [address] Dr. Ekta FunkLEUKOCYTESNegativeNormalNEGATIVEMercy Health Urbana HospitalComment on above:Performed By: #### B12FOL, VITAD, IRON #### [facility] [address] [place] [address] Dr. Ekta BlantonUSJAMIE SEENNormalNONE SEENMercy Health Urbana HospitalComment on above:Performed By: #### B12FOL, VITAD, IRON #### [facility] [address] [address] [address] Ekta Long Ql (U)NegativeNormalNEGATIVEThe [facility] HospitalComment on above:Performed By: #### B12FOL, VITAD, IRON #### [facility] [address] [address] [address] Ekta FunkpH (U)6.0 [pH]Normal5-9The [facility] HospitalComment on above: Performed By: #### B12FOL, VITAD, IRON #### [facility] [address] [place] [address] Dr. Ekta FunkRjtlwROG7-9Ljyuly3-3Gzt [facility] HospitalComment on above:Performed By: #### B12FOL, VITAD, IRON #### [facility] [address] [address] [address] Ekta FunkSPEC GRAVITY<=1.574Xzblqtlk1.005-<=1.025The [facility] Comment on above:Performed By: #### B12FOL, VITAD, IRON #### [facility] [address] [place] [address] Dr. Ekta FunkUA PROTEINNegativeNormalNEGATIVE/ TRACEThe [facility] Comment on above:Performed By: #### B12FOL, VITAD, IRON #### [facility] [address] [address] [address] Ekta Lugo Qn (U)0.2 {Ivan'U}/dLNormal0.2 - 1.0The [facility] HospitalComment on above:Performed By: #### B12FOL, VITAD, IRON #### [facility] [address] [place] [address] Dr. Ekta LeonardoBCJAMIE SEENNormalNONE SEENThe [facility] HospitalComment on above: Performed By: #### B12FOL, VITAD, IRON #### [facility] [address] [address] [address] Ekta LopezPon 94-49-7133Nxomyvbtfly peptide B (Bld) [Mass/Vol]1355.0 pg/mLCritically high<=900.0The [facility] HospitalComment on above:Performed By: #### B12FOL, VITAD, IRON #### [facility] [address] [place] [address] Dr. Ekta FunkINSULINon 47-02-9158Zlqzxyn40.4 uIU/mLNormal2.6-24.9The [facility] HospitalComment on above:Performed By: #### INSULIN #### [facility] [address] [place] [address] Dr. Ekta FunkOCC BLD IMMUNO SCREENon 31-82-4689SWZMRG BLOODPositiveAbnormal NEGATIVEThe [facility] HospitalComment on above:Performed By: #### B12FOL, VITAD, IRON #### [facility] [address] [place] [address] Dr. Ekta FunkPROF CHEM 8 (BAS METB)on 25-64-6223Kkgdk gap [Moles/Vol]15.8 mmol/LNormalThe [facility] HospitalComment on above:Performed By: #### B12FOL, VITAD, IRON #### [facility] [address] [place] [address] Dr. Ekta FunkCalcium [Mass/Vol]8.8 mg/dLNormal8.5-10.1The [facility] Comment on above:Performed By: #### B12FOL, VITAD, IRON #### [facility] [address] [place] [address] Dr. Ekta FunkChloride [Moles/Vol]107 mmol/EPzdkfg09-051Acp [facility] Comment on above:Performed By: #### B12FOL, VITAD, IRON #### [facility] [address] [place] [address] Dr. Ekta FunkCO2 [Moles/Vol]21.5 mmol/FDxdmzn55.0-32.0The [facility] Comment on above:Performed By: #### B12FOL, VITAD, IRON #### [facility] [address] [place] [address] Dr. Ekta FunkCreatinine [Mass/Vol]1.62 mg/dLCritically high0.55-1.02The [facility] HospitalComment on above:Performed By: #### B12FOL, VITAD, IRON #### [facility] [address] [place] [address] Dr. Ekta AbebeGFR-AF DCUHVSEJ70 mL/min/1.92b9Zqqobuxvuf low>=60The [facility] HospitalComment on above:Performed By: #### B12FOL, VITAD, IRON #### [facility] [address] [place] [address] Dr. Ekta AbebeGFR-NON AF YSQBQNRV21 mL/min/1.99i2Rykdygamug low>=60The [facility] HospitalComment on above:Performed By: #### B12FOL, VITAD, IRON #### [facility] [address] [place] [address] Dr. Ekta FunkGlucose [Mass/Vol]134 mg/dLCritically fxhv08-114Ixo [facility] HospitalComment on above:Performed By: #### B12FOL, VITAD, IRON #### [facility] [address] [place] [address] Dr. Ekta FunkPotassium [Moles/Vol]5.3 mmol/LCritically high3.5-5.1The [facility] Centerment on above:Performed By: #### B12FOL, VITAD, IRON #### [facility] [address] [place] [address] Dr. Ekta FunkSodium [Moles/Vol]139 mmol/NShuowx421-112Vsl [facility] Comment on above:Performed By: #### B12FOL, VITAD, IRON #### [facility] [address] [place] [address] Dr. Ekta FunkUrea nitrogen [Mass/Vol]37.0 mg/dLCritically high7.0-18.0The [facility] HospitalComment on above:Performed By: #### B12FOL, VITAD, IRON #### [facility] [address] [place] [address] Dr. Ekta Spring nitrogen/Creatinine [Mass ratio]22.8 mg/mgNormalThe [facility] HospitalComment on above:Performed By: #### B12FOL, VITAD, IRON #### [facility] [address] [place] [address] Dr. Ekta Rich, HIGH SENSITIVITYon 55-58-5304ISFUPD97.2 pg/mLCritically high4.0-51.3TThe Jewish HospitalComment on above:Result Comment: CUT-OFF POINTS HAVE BEEN ESTABLISHED BASED ON THE FOURTH UNIVERSAL DEFINITIONS OF MYOCARDIAL INFARCTION. THE UPPER REFERENCE LIMIT (URL) OF TROPONIN, DEFINED THE 99TH PERCENTILE OF cTnI DISTRIBUTION IN A REFERENCE POPULATION, HAS BEEN CONFIRMED THE DECISION THRESHOLD FOR SD DIAGNOSIS.Performed By: #### B12FOL, VITAD, IRON #### [facility] [address] [place] [address] Dr. Ekta Vaughan 97-82-6023Tkqixckgczf peptide B (Bld) [Mass/Vol]1386.0 pg/mLCritically high<=900.0Mer[facility]rbana HospitalComment on above:Performed By: #### CVDTBH #### [facility] [address] [place] [address] Dr. Ekta Hale BRITTANIE ADMITon 85-69-2801MU [Catalytic activity/Vol]34 U/L Uwzocj23-632KccMercy Health Urbana HospitalComment on above:Performed By: #### CVDTBH #### [facility] [address] [place] [address] Dr. Ekta Howell.MB [Mass/Vol]1.43 ng/mLNormal<=3.60[facility] Comment on above:Performed By: #### CVDTBH #### [facility] [address] [place] [address] Dr. Ekta PetersOP74.1 pg/mLCritically high4.0-51.3TThe [facility] Comment on above:Result Comment: CUT-OFF POINTS HAVE BEEN ESTABLISHED BASED ON THE FOURTH UNIVERSAL DEFINITIONS OF MYOCARDIAL INFARCTION. THE UPPER REFERENCE LIMIT (URL) OF TROPONIN, DEFINED THE 99TH PERCENTILE OF cTnI DISTRIBUTION IN A REFERENCE POPULATION, HAS BEEN CONFIRMED THE DECISION THRESHOLD FOR SD DIAGNOSIS.Performed By: #### CVDTBH #### [facility] [address] [place] [address] Dr. Ekta CampO52 ng/mLNormal9-82The [facility] HospitalComment on above: Performed By: #### CVDTBH #### [facility] [address] [place] [address] Dr. Ekta Agarwal AUTO DIFFon 22-87-7858OOYU #0.0 103/ulNormal0.0-0.1The [facility] HospitalComment on above:Performed By: #### CBC #### [facility] [address] [place] [address] Dr. Ekta FunkBasophils/100 WBC (Bld)0.3 %Normal0.2-2.0[facility] Comment on above:Performed By: #### CBC #### [facility] [address] [place] [address] Dr. Ekta Anthony #0.1 103/ulNormal0.0-0.7The [facility] HospitalComment on above: Performed By: #### CBC #### [facility] [address] [place] [address] Dr. Ekta Abebeosinophils/100 WBC (Bld)0.9 %Normal0.9-7.0[facility] Comment on above:Performed By: #### CBC #### [facility] [address] [place] [address] Dr. Ekta Abeberythrocyte distribution width (RBC) [Ratio]13.2 %Gjtviy76.0-15.0 The [facility] HospitalComment on above:Performed By: #### CBC #### [facility] [address] [place] [address] Dr. Ekta FunkHematocrit (Bld) [Volume fraction]38.9 %Udlzjk41.0-48.0The [facility] HospitalComment on above:Performed By: #### CBC #### [facility] [address] [address] [address] Ekta FunkHemoglobin (Bld) [Mass/Vol]12.4 g/hPXcndyj38.0-16.0The [facility] HospitalComment on above:Performed By: #### CBC #### [facility] [address] [address] [address] Ekta Olivares #0.08 10e3/ulCritically high0.00-0.03The [facility] Comment on above:Performed By: #### CBC #### [facility] [address] [place] [address] Dr. Ekta Olivares %0.5 %Normal0.0-0.5The [facility] HospitalComment on above: Performed By: #### CBC #### [facility] [address] [place] [address] Dr. Ekta Putnam #1.4 103/ulNormal1.2-3.8The [facility] HospitalComment on above:Performed By: #### CBC #### [facility] [address] [place] [address] Dr. Ekta Lundberghocytes/100 WBC (Bld)9.6 %Critically low20.5-60.0The [facility] HospitalComment on above:Performed By: #### CBC #### [facility] [address] [place] [address] Dr. Ekta MaloneUAL DIFF REQNONormalThe [facility] HospitalComment on above: Performed By: #### CBC #### [facility] [address] [place] [address] Dr. Ekta Oconnor (RBC) [Entitic mass]32.3 jbSkepkf02.7-34.0The [facility] HospitalComment on above:Performed By: #### CBC #### [facility] [address] [place] [address] Dr. Ekta Oconnor (RBC) [Mass/Vol]31.9 g/jQQshxue86.9-35.2The [facility] HospitalComment on above:Performed By: #### CBC #### [facility] [address] [address] [address] Ekta OconnorV (RBC) [Entitic vol]101.3 fLCritically high81.0-99.0The [facility] HospitalComment on above:Performed By: #### CBC #### [facility] [address] [address] [address] Ekta Rivas #0.9 103/ulCritically high0.3-0.8The [facility] Comment on above:Performed By: #### CBC #### [facility] [address] [address] [address] Ekta Perkinsocytes/100 WBC (Bld)6.3 %Normal1.7-12.0[facility] Comment on above:Performed By: #### CBC #### [facility] [address] [place] [address] Dr. Ekta DimasUT #12.0 103/ulCritically high1.4-6.5ThAshtabula [facility] Comment on above:Performed By: #### CBC #### [facility] [address] [place] [address] Dr. Ekta Dimasutrophils/100 WBC (Bld)82.4 %Critically high43.0-75.0The [facility] HospitalComment on above:Performed By: #### CBC #### [facility] [address] [place] [address] Dr. Ekta Salomonlet mean volume (Bld) [Entitic vol]9.7 fLNormal9.5-13.5The [facility] HospitalComment on above:Performed By: #### CBC #### [facility] [address] [place] [address] Dr. Ekta FunkPLT176 103/wgUoktmo550-357Hpw [facility] HospitalComment on above: Performed By: #### CBC #### [facility] [address] [place] [address] Dr. Ekta FunkRBC3.84 106/ulCritically low4.20-5.40The [facility] HospitalComment on above:Performed By: #### CBC #### [facility] [address] [address] [address] Ekta FunkWBC14.6 103/ulCritically high4.0-11.0The [facility] HospitalComment on above:Performed By: #### CBC #### [facility] [address] [address] [address] Ekta FunkFRMERVIN THYROXINE INDEX T7on 90-16-4483DXJ7.56Kbmspj7.30-4.50The [facility] HospitalComment on above:Performed By: #### CVDTBH #### [facility] [address] [address] [address] Ekta FunkT3U36.0 %Eywuws23.0-39.0The [facility] HospitalComment on above: Performed By: #### CVDTBH #### [facility] [address] [place] [address] Dr. Ekta FunkT4 [Mass/Vol]6.50 ug/dLNormal4.80-13.90The [facility] Comment on above:Performed By: #### CVDTBH #### [facility] [address] [address] [address] Ekta FunkGLYCOHEMOGLOBIN A1Con 98-64-4069NAG RECOMMENDATIONSEE BELOWNormal The [facility] HospitalComment on above:Result Comment: ADA RECOMMENDED LIMIT 4.0 - 6.0 ADA THERAPEUTIC TARGET < 7.0 ACTION SUGGESTED > 7.0Performed By: #### B12FOL, VITAD, IRON #### [facility] [address] [place] [address] Dr. Ekta FunkGlucose [Mass/Vol]140 mg/dLNormalThe [facility] HospitalComment on above:Performed By: #### B12FOL, VITAD, IRON #### [facility] [address] [address] [address] Ekta FunkHbA1c (Bld) [Mass fraction]6.5 %Critically high4.5-6.2The [facility] HospitalComment on above:Performed By: #### B12FOL, VITAD, IRON #### [facility] [address] [address] [address] Ekta Shannon 23-58-8767Awbn [Mass/Vol]62.0 ug/mXFsbnct08.0-170.0[facility] Hospitalment on above:Performed By: #### B12FOL, VITAD, IRON #### [facility] [address] [address] [address] Ekta EncinasID PROFILEon 27-86-0797SXFB-HDL RATIO NORMSEE BELOWNoRiverside Methodist HospitalComment on above:Result Comment: 3.3 - 4.4 LOW RISK 4.4 - 7.1 AVERAGE RISK 7.1 - 11.0 MODERATE RISK >11.0 HIGH RISKPerformed By: #### CVDTBH #### [facility] [address] [address] [address] Ekta FunkCholesterol [Mass/Vol]242 mg/dLCritically high<=200The [facility] HospitalComment on above:Performed By: #### CVDTBH #### [facility] [address] [address] [address] Ekta Tejedaesterol in HDL [Mass/Vol]74 mg/dLCritically uhcv37-51Pym [facility] HospitalComforest [facility] on above:Performed By: #### CVDTBH #### [facility] [address] [address] [address] Ekta FunkCholesterol in LDL [Mass/Vol]139.4 mg/dLOhio Valley Surgical HospitalComment on above:Performed By: #### CVDTBH #### [facility] [address] [address] [address] Ekta Holt.total/Cholesterol in HDL [Mass ratio]3.3 {ratio} NormalThe [facility] HospitalComforest health medical center on above:Performed By: #### CVDTBH #### [facility] [address] [address] [address] Ekta FunkHDL NORMAL> or = 60 mg/dl - LOW CARDIOVASCULAR RISK <40 mg/dl - HIGH CARDIOVASCULAR RISKOhio Valley Surgical HospitalComment on above:Performed By: #### CVDTBH #### [facility] [address] [place] [address] Dr. Ekta Navarro CALC NORMALSEE BELOWNoRiverside Methodist HospitalComment on above:Result Comment: <100 mg/dl OPTIMAL 100 - 129 mg/dl NEAR OR ABOVE OPTIMAL 130 - 159 mg/dl BORDERLINE HIGH 160 - 189 mg/dl HIGH >190 mg/dl VERY HIGH Performed By: #### CVDTBH #### [facility] [address] [address] [address] Ekta FunkTriglyceride [Mass/Vol]143 mg/dLNormal<=150The [facility] Comment on above:Performed By: #### CVDTBH #### [facility] [address] [place] [address] Dr. Ekta AnneLDL CALC28.6 mg/dLNoRiverside Methodist HospitalComment on above: Performed By: #### CVDTBH #### [facility] [address] [place] [address] Dr. Ekta FunkPROF 14(COMP METB)on 06-99-4020Ojrlits [Mass/Vol]2.8 g/dL Critically low3.4-5.0The [facility] HospitalComment on above:Performed By: #### CVDTBH #### [facility] [address] [place] [address] Dr. Ekta FunkAlbumin/Globulin [Mass ratio]0.7 {ratio}NormalThe [facility] HospitalComment on above:Performed By: #### CVDTBH #### [facility] [address] [place] [address] Dr. Ekta Cowart [Catalytic activity/Vol]90 U/RCvoxpg58-989Sfk [facility] HospitalComment on above:Performed By: #### CVDTBH #### [facility] [address] [place] [address] Dr. Ekta Mccormick [Catalytic activity/Vol]26 U/OPczsml23-77Lrk [facility] HospitalComment on above:Performed By: #### CVDTBH #### [facility] [address] [place] [address] Dr. Ekta Mcleodon gap [Moles/Vol]14.5 mmol/LNormalMer[facility] Health [facility] Comment on above:Performed By: #### CVDTBH #### [facility] [address] [address] [address] Ekta FunkAST [Catalytic activity/Vol]14 U/LCritically bxj98-07Qoj [facility] HospitalComment on above:Performed By: #### CVDTBH #### [facility] [address] [address] [address] Ekta FunkBilirubin [Mass/Vol]0.4 mg/dLNormal0.2-1.0[facility] Comment on above:Performed By: #### CVDTBH #### [facility] [address] [place] [address] Dr. Ekta FunkCalcium [Mass/Vol]8.9 mg/dLNormal8.5-10.1[facility] Comment on above:Performed By: #### CVDTBH #### [facility] [address] [address] [address] Ekta FunkChloride [Moles/Vol]106 mmol/DBqwxkn04-549XlbMercy Health Urbana Hospital Comment on above:Performed By: #### CVDTBH #### [facility] [address] [place] [address] Dr. Ekta FunkCO2 [Moles/Vol]23.5 mmol/PLnbeoz35.0-32.0[facility] Comment on above:Performed By: #### CVDTBH #### [facility] [address] [address] [address] Ekta FunkCreatinine [Mass/Vol]1.70 mg/dLCritically high0.55-1.02The [facility] HospitalComment on above:Performed By: #### CVDTBH #### [facility] [address] [address] [address] Dash ChangEGFR-AF ESFNTWIM68 mL/min/1.83p7Zzmrhrlsxc low>=60The [facility] HospitalComment on above:Performed By: #### CVDTBH #### [facility] [address] [address] [address] Ekta AbebeGFR-NON AF CFURNNMU69 mL/min/1.96f6Uytryeibay low>=60The [facility] HospitalComment on above:Performed By: #### CVDTBH #### [facility] [address] [address] [address] Ekta FunkGlobulin (S) [Mass/Vol]4.0 g/dLNormalThAshtabula County Medical CenterComment on above:Performed By: #### CVDTBH #### [facility] [address] [address] [address] Ekta FunkGlucose [Mass/Vol]99 mg/nRJnkpzm66-010CnfMercy Health U[facility] Hospital Comment on above:Performed By: #### CVDTBH #### [facility] [address] [address] [address] Ekta FunkPotassium [Moles/Vol]5.0 mmol/LNormal3.5-5.1The [facility] Comment on above:Performed By: #### CVDTBH #### [facility] [address] [address] [address] Ekta FunkProtein [Mass/Vol]6.8 g/dLNormal6.4-8.2[facility] Comment on above:Performed By: #### CVDTBH #### [facility] [address] [address] [address] Ekta FunkSodium [Moles/Vol]139 mmol/RXvtbts277-943Igm [facility] Comment on above:Performed By: #### CVDTBH #### [facility] [address] [address] [address] Ekta FunkUrea nitrogen [Mass/Vol]36.0 mg/dLCritically high7.0-18.0The [facility] HospitalComment on above:Performed By: #### CVDTBH #### [facility] [address] [address] [address] Ekta FunkUrea nitrogen/Creatinine [Mass ratio]21.2 mg/mgNormalThe [facility] HospitalComment on above:Performed By: #### CVDTBH #### [facility] [address] [place] [address] Dr. Ekta Carmona 31-77-2004UTC3.910 uIU/mLNormal0.358-3.740The [facility] on above:Performed By: #### CVDTBH #### [facility] [address] [place] [address] Dr. Ekta FunkCovid-19 PCR ([facility])on 73-79-3777NWGB-CoV-2 (COVID-19) RNA GANESH+probe Ql (Unsp spec)DetectedAbnormalNOT DETECTEDThe [facility] on above:Result Comment: This test is not yet approved or cleared by the [place] FDA. When there are no FDA-approved or cleared tests available, and other criteria are met, FDA can make tests available under an emergency access mechanism called an Emergency Use Authorization (EUA). The EUA for this test is supported by the Condominium Manager of Health and Human Service's declaration that [...] longer be used).Performed By: #### CMP #### [facility] [address] [place] [address] Dr. Ekta FunkINFLNGHIANZA A AND B AGon [id number] [facility] on above:Result Comment: Negative for Flu A protein angiten. Infection due to Flu A cannot be ruled out. FluA angiten in the sample may be below the detection limit of the test.Performed By: #### B12FOL, VITAD, IRON #### [facility] [address] [place] [address] Dr. Ekta FunkINFLUBNEGHSMERVIN [facility] on above: Result Comment: Negative for Flu B protein antigen. Infection due to Flu B cannot be ruled out. FluB antigen in the sample may be below the detection limit of the test.Performed By: #### B12FOL, VITAD, IRON #### [facility] [address] [address] [address] Ekta Arguelles AGNegativeNormalNEGATIVE SEE COMMENTThe [facility] HospitalComment on above:Performed By: #### B12FOL, VITAD, IRON #### [facility] [address] [address] [address] Ekta Rojas AGNegativeNormalNEGATIVE SEE COMMENTThe [facility] HospitalComment on above:Performed By: #### B12FOL, VITAD, IRON #### [facility] [address] [place] [address] Dr. Ekta Woody CAROTID ART BILon [id number] CAROTID ART BILEXAMINATION: US CAROTID ART ANGELIQUE [...] Electronically authenticated by: GODWIN BECK Date: 2022-05-26 16:06[facility] HospitalMRI BRAIN WO CONon [id number] BRAIN WO CONEXAMINATION: MRI BRAIN WO CON, [...] Electronically authenticated by: DANIEL PINEDA Date: 2022-05-25 10:[address] [place], [place] [address]ECHOCARDIO M/2D COMPLETEon [id number] M/2D COMPLETE Patient: SHEILA MAC Exam Date: 05/24/2022 : 1950 Gender:F Ordering : DR KRZYSZTOF THOMPSON . Admission #: [id number] Family : Order #: [id number] CLICK HERE TO VIEW EXAM ECHOCARDIOGRAM REPORT [...] by: Sylwia Mckay M.D. on 05/24/2022 at 14:45[facility] METABOLIC PANELon [id number] mass conc9.4 mg/dLNormal 8.6-10.3The [facility] HospitalComment on above:Order Comment: No: Do not add to previous drawPerformed By: #### [id number] #### [facility] [address] [place] [address], USAChloride molar tems533 mmol/YTuko51-536Apr [facility] HospitalComment on above:Order Comment: No: Do not add to previous drawPerformed By: #### [id number] #### [facility] [address] [place] [address], [place]ACO2 molar conc22 mmol/MGxzesw39-38Ghn [facility] HospitalComment on above:Order Comment: No: Do not add to previous draw Performed By: #### [id number] #### [facility] [address] [place] [address], USACreatinine mass conc1.18 mg/dLNormal0.60-1.20The [facility] HospitalComment on above:Order Comment: No: Do not add to previous drawPerformed By: #### [id number] #### [facility] [address] [place] [address], USAGFR/1.73 sq M predicted among blacks MDRD vol rate/area (S/P/Bld)55 ml/min/1.73sq mAbnormal>60[facility] Comment on above:Order Comment: No: Do not add to previous drawPerformed By: #### [id number] #### [facility] [address] [place] [address], USAGFR/1.73 sq M predicted among non-blacks MDRD vol rate/area (S/P/Bld)45 ml/min/1.73sq mAbnormal>60[facility] Comment on above:Order Comment: No: Do not add to previous drawPerformed By: #### [id number] #### [facility] [address] [place] [address], USAGlucose mass ryub361 mg/rIAqkn30-883Yfm [facility] HospitalComment on above:Order Comment: No: Do not add to previous drawPerformed By: #### [id number] #### [facility] [address] [place] [address], USAPotassium molar conc4.1 mmol/LNormal3.5-5.1The [facility] HospitalComment on above:Order Comment: No: Do not add to previous drawPerformed By: #### [id number] #### [facility] [address] [place] [address], USASodium molar kmdz022 mmol/YRytzfj432-843Jvz [facility] HospitalComment on above:Order Comment: No: Do not add to previous drawPerformed By: #### [id number] #### [facility] [address] [place] [address], USAUrea nitrogen mass conc21 mg/dLNormal7-25The [facility] HospitalComment on above:Order Comment: No: Do not add to previous drawPerformed By: #### [id number] #### [facility] [address] [place] [address], USACBC COMPLETE BLOOD COUNTon 14-81-7070Oafnnuthvaq distribution width Ratio (RBC)12.9 %Lkmwla77.5-15.0The [facility] HospitalComment on above:Order Comment: No: Do not add to previous draw Performed By: #### [id number] #### [facility] [address] [place] [address], USAHematocrit Volume Fraction (Bld)36.7 %Xawshn11.0-45.0The [facility] HospitalComment on above:Order Comment: No: Do not add to previous drawPerformed By: #### [id number] #### [facility] [address] [place] [address], USAHemoglobin mass conc (Bld)12.4 g/aXCaquma10.0-15.0The [facility] HospitalComment on above:Order Comment: No: Do not add to previous drawPerformed By: #### [id number] #### [facility] [address] [place] [address], [facility] Entitic mass (RBC)31.2 kaQnbdbl57.0-33.0The [facility] HospitalComment on above:Order Comment: No: Do not add to previous drawPerformed By: #### [id number] #### [facility] [address] [place] [address], [facility] mass conc (RBC)33.8 g/aSHhdhnn79.0-35.0The [facility] HospitalComment on above:Order Comment: No: Do not add to previous drawPerformed By: #### [id number] #### [facility] [address] [place] [address], [facility] Entitic volume (RBC)92.4 fMQkznin10.0-98.0The [facility] HospitalComment on above:Order Comment: No: Do not add to previous drawPerformed By: #### [id number] #### [facility] [address] [place] [address], [facility]ARE SERVICESNucleated RBC/100 WBC Ratio (Bld)0 %Normal0-0The [facility] HospitalComment on above:Order Comment: No: Do not add to previous drawPerformed By: #### [id number] #### [facility] [address] [place] [address], [facility] SERVICESPLAT TRS397 10*3/jGKcrfry811-095Ajk [facility] HospitalComment on above:Order Comment: No: Do not add to previous draw Performed By: #### [id number] #### [facility] [address] [place] [address], [facility] C[facility] SERVICESRBC #/vol (Bld)3.97 10*6/uLNormal3.80-5.00The [facility] HospitalComment on above:Order Comment: No: Do not add to previous drawPerformed By: #### [id number] #### [facility] [address] [place] [address], [facility] #/vol (Bld)5.55 10*3/uLNormal4.00-10.60The [facility] HospitalComment on above:Order Comment: No: Do not add to previous drawPerformed By: #### [id number] #### [facility] [address] [place] [address], [facility] SERVICESCardiovascular Lab Reporton [id number] Lab ReportUnCrystal Clinic Orthopedic Center Patient Name: [facility] Sheila MR #: [id number] Department of Physician: Bong Sutton Shellie Gaspar M.D. Division of Service Date: 11/20/2018 Cardiology Birthdate: 1950 Adult Cardiovascular Room #: 3AB [id number] [facility] [address] [place] [address] Cardiovascular Laboratory Report INDICATION: The patient is a 68-year-old woman who was evaluated in Cardiology Clinic because of new onset symptoms of shortness of breath on mild exertion. Her stress test showed evidence of mcuxe-ux-xhtthdrk area of inferoapical ischemia; because of that, she was referred for cardiac catheterization. PROCEDURES: 1. Right heart catheterization. 2. Bilateral selective coronary angiography. 3. Limited right femoral angiography. METHOD: Procedure was explained patient with risks and benefits. She signed informed consent. She was brought to dental laboratory worker in a fasting state. The right groin area was prepped and draped in usual fashion. Using micropuncture technique, the right common femoral artery was accessed. The inner cannula was advanced. Limited femoral angiography was performed followed by upsizing to a 6-Wolof x 11 cm sheath. Access was also obtained using the same technique in the right common femoral vein and a 6-Wolof x 11 cm sheath was placed. A 6-Wolof Michel catheter was used for right heart catheterization with measurement of pressures and calculation of cardiac output using the estimated Ivory method. Michel catheter was removed. Bilateral selective coronary angiography was then performed using 6-Wolof JL4 and JR4 diagnostic catheters. Catheters were [...] Gaspar M.D. Date Trans: 11/20/2018 09:31 A/alvina DN_JN:[id number] cc: Krzysztof Thompson M.D. [place] [address] [facility] [place] [address]RcqrxsZhzUniversity Hospitals Cleveland Medical CenterBASIC METABOLIC PANELon [id number] mass conc9.5 mg/dLNormal8.6-10.3The [facility] HospitalComment on above:Order Comment: No: Do not add to previous drawPerformed By: #### [id number] #### [facility] [address] [place] [address], USAChloride molar ikzu049 mmol/JShdpfz48-715Ehv [facility] HospitalComment on above:Order Comment: No: Do not add to previous drawPerformed By: #### [id number] #### [facility] [address] [place] [address], [place]ACO2 molar conc24 mmol/IOyxost62-64Jhk [facility] HospitalComment on above:Order Comment: No: Do not add to previous draw Performed By: #### 60266 #### [facility] [address] [place] [address], USACreatinine mass conc1.42 mg/dLHigh0.60-1.20The [facility] HospitalComment on above:Order Comment: No: Do not add to previous drawPerformed By: #### [id number] #### [facility] [address] [place] [address], USAGFR/1.73 sq M predicted among blacks MDRD vol rate/area (S/P/Bld)45 ml/min/1.73sq mAbnormal>60[facility] Comment on above:Order Comment: No: Do not add to previous drawPerformed By: #### [id number] #### [facility] [address] [place] [address], USAGFR/1.73 sq M predicted among non-blacks MDRD vol rate/area (S/P/Bld)36 ml/min/1.73sq mAbnormal>60[facility] Comment on above:Order Comment: No: Do not add to previous drawPerformed By: #### 78141 #### [facility] [address] [place] [address], USAGlucose mass conc86 mg/oUJdhwhk47-841Oew [facility] HospitalComment on above:Order Comment: No: Do not add to previous drawPerformed By: #### 91553 #### [facility] [address] [place] [address], USAPotassium molar conc4.2 mmol/LNormal3.5-5.1The [facility] HospitalComment on above:Order Comment: No: Do not add to previous drawPerformed By: #### [id number] #### [facility] [address] [place] [address], USASodium molar szpq747 mmol/QGbwese778-449Yir [facility] HospitalComment on above:Order Comment: No: Do not add to previous drawPerformed By: #### [id number] #### [facility] [address] [place] [address], USAUrea nitrogen mass conc19 mg/dLNormal7-25The [facility] HospitalComment on above:Order Comment: No: Do not add to previous drawPerformed By: #### 10131 #### [facility] [address] [place] [address], [facility] SERVICESCBC COMPLETE BLOOD COUNTon [id number] distribution width Ratio (RBC)13.0 %Afjcdt96.5-15.0The [facility] HospitalComment on above:Order Comment: No: Do not add to previous draw Performed By: #### [id number] #### [facility] [address] [place] [address], USAHematocrit Volume Fraction (Bld)38.3 %Rdwhlg75.0-45.0The [facility] HospitalComment on above:Order Comment: No: Do not add to previous drawPerformed By: #### 98549 #### [facility] [address] [place] [address], USAHemoglobin mass conc (Bld)12.6 g/nRTcybal46.0-15.0The [facility] HospitalComment on above:Order Comment: No: Do not add to previous drawPerformed By: #### [id number] #### [facility] [address] [place] [address], [facility] Entitic mass (RBC)31.1 msWwydzr50.0-33.0The [facility] HospitalComment on above:Order Comment: No: Do not add to previous drawPerformed By: #### [id number] #### [facility] [address] [place] [address], [facility] mass conc (RBC)32.9 g/hNMtylad95.0-35.0The [facility] HospitalComment on above:Order Comment: No: Do not add to previous drawPerformed By: #### [id number] #### [facility] [address] [place] [address], [facility] Entitic volume (RBC)94.6 wBDaguez88.0-98.0The [facility] HospitalComment on above:Order Comment: No: Do not add to previous drawPerformed By: #### 25905 #### [facility] [address] [place] [address], [facility] SERVICESNucleated RBC/100 WBC Ratio (Bld)0 %Normal0-0The [facility] HospitalComment on above:Order Comment: No: Do not add to previous drawPerformed By: #### [id number] #### [facility] [address] [place] [address], [facility] CARE SERVICESPLAT LVV865 10*3/wUCnnbvq352-724Qrj [facility] HospitalComment on above:Order Comment: No: Do not add to previous draw Performed By: #### [id number] #### [facility] [address] [place] [address], [facility] CARE SERVICESRBC #/vol (Bld)4.05 10*6/uLNormal3.80-5.00The [facility] HospitalComment on above:Order Comment: No: Do not add to previous drawPerformed By: #### 85031 #### [facility] [address] [place] [id number], [facility] SERVICESWBC #/vol (Bld)9.01 10*3/uLNormal4.00-10.60The [facility] HospitalComment on above:Order Comment: No: Do not add to previous drawPerformed By: #### [id number] #### [facility] [address] [place] [address], USAPROTHROMBIN TIMEon 68-02-2019UUS Coag RelTime (PPP)1.07 {INR}Normal0.91-1.16The [facility] HospitalComment on above: Order Comment: No: Do not add to previous drawResult Comment: [facility] RECOMMENDED INR FOR WARFARIN THERAPY ------- CONDITION [...] OPTIMAL THERAPEUTIC RANGE. CHEST 1995;108:231S-246S.Performed By: #### [id number] #### [facility] [address] [place] [address], USAProthrombin time (PT) Coag time (PPP)13.9 wFlzgcm87.3-14.8 The [facility] HospitalComment on above:Order Comment: No: Do not add to previous drawResult Comment: ALL RESULTS MUST BE INTERPRETED WITH RESPECT TO BLOOD DRAWING ARTIFACT OR DILUTION ERROR OF ANTICOAGULANT AT THE TIME OF SAMPLING.Performed By: #### [id number] #### [facility] Vital Signs Date TimeVital SignValuePerforming NcwindgonJpjrvlcx17-77-4314 10:08-0400Body ryusyc045.6 cmKaitlin Macdonald VIBRATION ANALYST-LOGISTICS PLANNER Work Phone: [facility]10-14-2025 10:08-0400Body mass index (BMI) [Ratio]20.36 kg/u7RgshjrxKaitlin Macdonald VIBRATION ANALYST-LOGISTICS PLANNER Work Phone: [facility]10-14-2025 10:08-0400Body kkrduq33.8 kgKaitlin Macdonald VIBRATION ANALYST-LOGISTICS PLANNER Work Phone: [facility]10-14-2025 10:08-0400Diastolic blood mm[Hg]Kaitlin Macdonald VIBRATION ANALYST-LOGISTICS PLANNER Work Phone: [facility]10-14-2025 10:08-0400Heart rate 66 /minKaitlin Macdonald VIBRATION ANALYST-LOGISTICS PLANNER Work Phone: [facility]10-14-2025 10:08-0400Systolic blood noeiarns590 mm[Hg]Kaitlin Macdonald VIBRATION ANALYST-LOGISTICS PLANNER Work Phone: [facility]07-17-2025 14:35-0400Body avuwdv145.48 cmKrzysztof Thompson MD Work Phone: [facility]07-17-2025 14:35-0400 Body mass index (BMI) [Ratio]21.7 kg/r0NcymxamKrzysztof Thompson MD Work Phone: [facility]07-17-2025 14:35-0400 Body .97 Belinda Thompson MD Work Phone: [facility]06-12-2025 14:50-0400 Body egyoyd33.2 Belinda Thompson MD Work Phone: [facility]04-17-2025 10:07-0400 Body .6 cmKaitlin Macdonald VIBRATION ANALYST-LOGISTICS PLANNER Work Phone: [facility]04-17-2025 10:07-0400Body mass index (BMI) [Ratio]21.7 kg/g9AkiiusjKaitlin Macdonald APRN-LOGISTICS PLANNER Work Phone: [facility]04-17-2025 10:07-0400Body vyvaaf86.34 kgKaitlin Macdonald APRN-NEVAEH Work Phone: [facility]04-17-2025 10:07-0400Diastolic blood slytfjfh94 mm[Hg]Kaitlin Macdonald APRN-LOGISTICS PLANNER Work Phone: [facility]04-17-2025 10:07-0400Heart rate 89 /minKaitlin Macdonald APRN-NEVAEH Work Phone: [facility]04-17-2025 10:07-0400Systolic blood mm[Hg]Kaitlin Macdonald APRN-NEVAEH Work Phone: [facility]12-02-2024 14:21-0500Body mass index (BMI) [Ratio]23.52 kg/o6Rshwsafwpyj Hassett DO Work Phone: [facility] HospitalCpwaamhziv04-13-5814 14:21-0500Body cycznw11.24 kgChkristophertopher Sesay DO Work Phone: [facility] HospitalXcokdrgblp29-06-9266 14:21-0500Diastolic blood vxikstoq19 mm[Hg]Marianoer Shama DO Work Phone: [facility] HospitalKkaexabbnv86-32-3035 14:21-0500Heart rate79 /min Christsantoser Shama DO Work Phone: noCitizens Memorial HealthcareZutgzymlog70-07-9898 14:21-4728KbL6% (BldA) [Mass fraction]97 %Bonifacioopher Shama DO Work Phone: noCitizens Memorial HealthcareJhertahzab34-06-8076 14:21-0500Systolic blood mm[Hg]Bonifacioopher Shama DO Work Phone: [place] [address]Kdreezwoux37-06-4705 11:45-0500Body lujemn284.[address]11-12-2024 11:45-0500Body mass index (BMI) [Ratio] 22.31 kg/m[address]11-12-2024 11:45-0500Body .[address]11-06-2024 11:25-0500Body vdkiyi795.6 cmKaitlin Macdonald APRN-LOGISTICS PLANNER Work Phone: [facility]11-06-2024 11:25-0500Body mass index (BMI) [Ratio]22.49 kg/t1HxxgprjKaitlin Macdonald APRN-LOGISTICS PLANNER Work Phone: [facility]11-06-2024 11:25-0500Body zarqdu69.42 kgKaitlin Macdonald APRN-LOGISTICS PLANNER Work Phone: [facility]11-04-2024 13:28-0500Body mass index (BMI) [Ratio]23.52 kg/c8Nwttobtijsn Shama DO Work Phone: [facility] HospitalSmmtcajbgu95-96-7512 13:28-0500Body gccewa96.24 kgChristopher Shama DO Work Phone: [facility] HospitalKltwqvijmh80-40-0952 13:28-0500Diastolic blood mm[Hg]Christopher Shama DO Work Phone: [facility] HospitalJsleqpqgap33-39-3725 13:28-0500Heart rate87 /min Christopher Shama DO Work Phone: [facility] HospitalLtpejxmsjc37-40-3701 13:28-2176MeM1% (BldA) [Mass fraction]91 %Christopher Shama DO Work Phone: [facility] HospitalQnxqhxfzan80-42-4753 13:28-0500Systolic blood frdcczia124 mm[Hg]Christopher Shama DO Work Phone: [facility] HospitalHmgosfxatm00-60-2508 11:35-0400Diastolic blood jhrdzhjo265 mm[Hg]MD Krzysztof Thompson Work Phone: 1(886)[address] [place], [place] 6294807-17-2024 11:35-0400 Heart rate76 /minMD Krzysztof Hoy Work Phone: 1(548)[address] [place], [place] 6294807-17-2024 11:35-0400 Respiratory rate18 /minMD Krzysztof Hoy Work Phone: 1(115)[address] [place], [place] 6294807-17-2024 11:35-0400 SaO2% (BldA) [Mass fraction]96 %MD Krzysztof Thompson Work Phone: 1(972)[address] [place], [place] 6294807-17-2024 11:35-0400 Systolic blood xsuoxeiq662 mm[Hg]MD Krzysztof Thompson Work Phone: 1(901)[address] [place], [place] 6294807-17-2024 10:24-0400 Body tjtibe915.48 cmMD Krzysztof Hoy Work Phone: 1(057)[address] [place], [place] 6294807-17-2024 10:24-0400 Body rvuvkn15.14 kgMD Krzysztof Hoy Work Phone: 1(362)[address] [place], [place] 6294806-11-2024 09:07-0400 Body dyzlxq397.48 cmMD Krzysztof Hoy Work Phone: 1(061)[address] [place], [place] 6294806-11-2024 09:07-0400 Body mass index (BMI) [Ratio]24.7 kg/m2MD Krzysztof Hoy Work Phone: 1(976)[address] [place], [place] 6294806-11-2024 09:07-0400 Body .23 kgMD Krzysztof Hoy Work Phone: 1(380)[address] [place], [place] 6294806-11-2024 09:07-0400 Diastolic blood mm[Hg]MD Krzysztof Thompson Work Phone: 1(998)[address] [place], [place] 6294806-11-2024 09:07-0400 Heart rate60 /minMD Krzysztof Thompson Work Phone: 1(190)[address] [place], [place] 6294806-11-2024 09:07-0400 Systolic blood klimofsd500 mm[Hg]MD Krzysztof Thompson Work Phone: 1(316)[address] [place], [place] 6294805-28-2024 13:37-0400 Diastolic blood egmdfdcv70 mm[Hg]MD Krzysztof Thompson Work Phone: 1(944)[address] [place], [place] 6294805-28-2024 13:37-0400 Heart rate78 /min Krzysztof Thompson Work Phone: 1(955)[address] [place], [place] 6294805-28-2024 13:37-0400 Respiratory rate16 /min Krzysztof Marioanastasia Work Phone: 1(811)[address] [place], [place] 6294805-28-2024 13:37-0400 SaO2% (BldA) [Mass fraction]97 %MD Krzysztof Thompson Work Phone: 1(310)[address] [place], [place] 6294805-28-2024 13:37-0400 Systolic blood qgptucwb563 mm[Hg]MD Krzysztof Thompson Work Phone: 1(438)[address] [place], [place] 6294805-28-2024 11:35-0400 Body memvyi324.48 cmMD Krzysztof Martinanastasia Work Phone: 1(525)[address] [place], [place] 6294805-28-2024 11:35-0400 Body zijzfwidmht23.1 [degF]MD Krzysztof Thompson Work Phone: 1(274)[address] [place], [place] 6294805-28-2024 11:35-0400 Body .14 kgMD Krzysztof Martinanastasia Work Phone: 1(432)[address] [place] [address] Encounters Encounter DateEncounter TypeCare ProviderFacilityStart: 07-15-2025 End: 35-16-3234Yvnrqvthu encounterErin Bashir [facility] Physicians General SurgeryStart: 06-23-2025 End: 47-11-9279Ysbehg outpatient visit 15 minutesKaitlin Macdonald VIBRATION ANALYST-LOGISTICS PLANNER Work Phone: [facility] Physicians General SurgeryComment on above: Incontinence of feces, unspecified fecal incontinence type (Primary Dx); Diverticular stricture ([facility])Start: 06-23-2025 End: 01-08-1726qayslqgyciGTLPBJK A CARR[facility]LLS[facility] Start: 05-13-2025 End: 01-70-8309kgnhrdfdldWlrromz M Hoy MD Work Phone: [facility] Work Phone: Start: 05-13-2025 End: 97-75-1962Yntuxshi ReferredKrzysztof Marmolejo MD-LAB [facility] Start: 05-04-2025 End: 49-13-4025khasdszixjJcfskje M Hoy MD Work Phone: [facility] Work Phone: Start: 05-04-2025 End: 32-64-5106Rjfnzut encounter procedureThsenait Johnson MD-[facility] Work Phone: Start: 04-27-2025 End: 66-27-2971iseusgeofzVemxkcb M Hoy MD Work Phone: [facility] Work Phone: Start: 04-27-2025 End: 38-78-7934Pohmoaq encounter procedureThsenait Alvares MD-[facility] Work Phone: Start: 04-02-2025 End: 31-47-0146jdkaabstswLribpsg M Hoy MD Work Phone: [facility] Work Phone: Start: 04-02-2025 End: 35-19-1765Flfcmtl encounter procedureRickie Johnson MDIndiana [facility] Work Phone: Start: 07-39-0529mtndnzacxpLobiplHugo Atwood MD Facility:[facility]etart: 03-26-2025 End: 80-62-5546pejustouydKmdklik M Hoy MD Work Phone: [facility] Work Phone: Start: 03-26-2025 End: 67-22-3142Sssmhae encounter procedureVasyl Calvert MD-[facility] Work Phone: start: 03-11-2025 End: 21-00-4159dlqerjmqgkEgorfgh M Hoy MD Work Phone: [facility] Work Phone: Start: 03-11-2025 End: 57-44-4625Idrqzck encounter procedureRickie Johnson MD-[facility] Work Phone: Start: 02-26-2025 End: 38-11-9094Uazynsv encounter procedureVasyl Calvert MD-[facility] Work Phone: Start: 02-26-2025 End: 91-27-4145ynposfrufxUqujwvx M HoyFacility:[facility] Start: 02-19-2025 End: 74-16-9395Hngxwam encounter procedureVasyl Calvert MD-[facility] Work Phone: start: 12-25-2024 End: 24-51-0673Ajbdcp outpatient visit 15 minutesKaitlin Macdonald APRN-[facility] Work Phone: [facility]icians General SurgeryComment on above: Bright red blood per rectum (Primary Dx)Start: 12-25-2024 End: 83-86-3083Hxfsow OnlyNot In System Ref ProvProMedica Physicians General SurgeryStart: 08-11-2024 End: 05-30-5869wpcxbunavdRMCYIXRWOSO HASSETTNot AvailableStart: 08-11-2024 End: 47-77-8789Gyxxkw outpatient visit 25 minutesChristopher Shama DO Work Phone: [facility] STATE ROUTEComment on above:Left hand pain (Primary Dx); Primary osteoarthritis of hand, unspecified lateralityStart: 08-04-2024 End: 17-71-4540Fumucyeuu encounterAngelica Dawson CMAProMedica Physicians General SurgeryStart: 07-28-2024 End: 13-35-0681Serpagdxsc and management of inpatientMENTogus VA Medical Centertart: 07-22-2024 End: 80-86-4137szoqfmuwfzEqg Pat Phone Call Provider [address] [place] [address] - Pre AdmitStart: 07-22-2024 End: 63-50-2443zmjwqetbfxKRKLZLN Kindred Healthcaretart: 07-17-2024 End: 09-72-5858Fhkulq flowsheetChristopher Shama DO Work Phone: [facility] ROUTEStart: 07-17-2024 End: 39-79-1396Ohcdhl flowsheetChristopher Shama DO Work Phone: [facility] ROUTEStart: 07-17-2024 End: 40-14-0698Wamzyfi encounter procedureChristopher Shama DO Work Phone: [facility] ROUTEComment on above:Cervical radiculopathy (Primary Dx); ParesthesiaStart: 07-17-2024 End: 85-36-7902gkctjwquxnCWNWQTRJJSN HASSETTNot AvailableStart: 07-16-2024 End: 28-23-2965Cunrms outpatient new 30 minutesJefferson [facility] Hospital Blane Macdonald VIBRATION ANALYST-LOGISTICS PLANNER Work Phone: [facility] Physicians General SurgeryComment on above: Vomiting in adult (Primary Dx); History of gastric ulcer; Chronic GERD; Hiatal hernia; Dysphagia, unspecified typeStart: 07-16-2024 End: 67-97-3983lpizgjpnhsWTFIHWY [facility] Start: 07-15-2024 End: 78-85-3431yucfacytmnPBJSJ A HUDDLESTONNot AvailableStart: 07-15-2024 End: 95-59-1433Xmfqjl outpatient visit 10 minutesCleve Sheth DO Work Phone: noms ORTHOPAEDICSComment on above:Chronic right hip pain (Primary Dx); Sacral insufficiency fracture with routine healing, subsequent encounter; Closed fracture of multiple pubic rami, right, initial encounter ([facility])Start: 07-14-2024 End: 68-59-1509Hfmbbf flowsheetChristopher Shama DO Work Phone: noms [address] R[address]TEStart: 07-14-2024 End: 53-48-0841Xrgnny flowsheetChristopher Shama DO Work Phone: noms [facility] ROUTEStart: 07-14-2024 End: 99-44-0861Axadwa outpatient new 30 minutesChristopher Shama DO Work Phone: noms [address] STATE ROUTEComment on above:Paresthesia (Primary Dx)Start: 07-14-2024 End: 89-31-0041uvpsbuhhsaKXJYWGCGJFE YULIANAETTNot AvailableStart: 06-17-2024 End: 50-89-4011Ghknsz flowsheetCleve Sheth DO Work Phone: noms CI ORTHOPAEDICSStart: 06-17-2024 End: 30-31-6699Grchfm flowsheetCleve Sheth DO Work Phone: noms CI ORTHOPAEDICSStart: 06-17-2024 End: 37-40-6627Dqwplz outpatient visit 25 minutesCleve Sheth DO Work Phone: noms CI ORTHOPAEDICSComment on above:Chronic right hip pain (Primary Dx); Sacral insufficiency fracture, initial encounter ([facility]); Closed fracture of multiple pubic rami, right, initial encounter ([facility])Start: 06-17-2024 End: 17-59-5002kjvcbqtqhwPHZRGAdan Mercedes AvailableStart: 06-13-2024 End: 65-45-1554Avfxtvomk department patient visitDOIVIS Marmolejo [facility] HospitalStart: 06-12-2024 End: 09-46-7309ocnglvpisuACMOCRoshan Mercedes AvailableStart: 06-05-2024 End: 77-18-4880Qshpuovrh encounterSammantfaye Case PTNOMS CI PTComment on above:PT [...] to fractures in bones. )Start: 06-05-2024 End: 41-70-2486Lkkgmn outpatient visit 15 minutesCleve Blane Sheth DO Work Phone: NOPR FB ORTHOPAEDICSComment on above:Chronic right hip pain (Primary Dx)Start: 06-05-2024 End: 00-50-5243knuqngbjwnSYSTP A HUDDLESTONNot AvailableStart: 2024 End: 86-97-3872grhislqszjTCGABAdan SHETHNot AvailableStart: 04-01-2024 End: 34-14-3009rbbstjzhllHKKLBAdan SHETHNot AvailableStart: 22-54-0291Gvf- patient / Non-visitMD Krzysztof Hoy Work Phone: [facility] Work Phone: Start: 03-26-2024 End: 79-18-0592Nyfogvmuc to same day surgery centerMD Krzysztof Hoy Work Phone: [facility] Work Phone: Start: 03-26-2024 End: 98-94-4480wflcnirlisXA Krzysztof M Hoy Work Phone: [phone] [place] [address] Ctr Work Phone: Start: 02-19-2024 End: 95-46-9997wamifojgoeNC Krzysztof M Hoy Work Phone: [facility] Work Phone: Start: 02-19-2024 End: 69-15-4368Boblqow encounter procedureMD Krzysztof Hoy Work Phone: [facility] Work Phone: Start: 65-47-1607Pau-patient / Non-visitMD Krzysztof Hoy Work Phone: [facility] Work Phone: Start: 02-05-2024 End: 53-67-2542Altsbdonb to same day surgery centerMD Krzysztof Hoy Work Phone: [facility] Work Phone: Start: 02-05-2024 End: 57-73-7273binvjzffnnOO Krzysztof M Hoy Work Phone: [facility] Work Phone: Start: 82-10-7737Qon-patient / Non-visitMD Krzysztof Hoy Work Phone: [facility] Work Phone: Start: 01-09-2024 End: 63-26-0563olydcjlmuvCOVG DUCKETTNot AvailableStart: 57-24-6601pqsyxxvbex JN GARCIA .Facility:K6Vxdgs: 01-15-2023 End: 32-97-1697spnjtnfpxlMYZHDO RODRIGUEZ .Facility:I6Ipfaa: 01-10-2023 End: 41-25-0672tdjjqaujucPN KRZYSZTOF HOY .Facility:U0Hmrwk: 12-15-2022 End: 88-20-5635yywjbzepgaWZXLHB RODRIGUEZ .Facility:G5Ippai: 12-15-2022 [facility]22 End: 58-34-2998quvdyxuiwhNP KRZYSZTOF HOY .Facility:K0Pfdhz: 11-25-2022 End: 99-67-3774Wasdkftjmc and management of inpatientDR KRZYSZTOF HOY .Facility:H1 Start: 11-13-2022 End: 16-58-3194epuirmypmdNM KRZYSZTOF HOY .Facility:Y7Rwbsh: 11-09-2022 End: 67-88-8929jqihhwrlfgTI KRZYSZTOF HOY .Facility:M1Woalc: 10-20-2022 End: 32-46-4579xrqxxiqffcAP KRZYSZTOF HOY .Facility:M4Gdxlc: 10-19-2022 End: 47-19-6424iknhswwlheGV KRZYSZTOF HOY .Facility:I1Hpwpx: 10-18-2022 End: 26-70-9622dpptyxfykzVR KRZYSZTOF HOY .Facility:E1Iysle: 09-25-2022 End: 49-75-1133qayqjdpsrcTW KRZYSZTOF HOY .Facility:D9Ascpy: 07-25-2022 End: 67-81-7721voeugmxitmLC KRZYSZTOF HOY .Facility:R6Bhlkb: 05-26-2022 End: 42-66-3607lnwmhcftthGO KRZYSZTOF HOY .Facility:X1Uejqj: 05-25-2022 End: 40-18-7745xmlsatnwscSW KRZYSZTOF HOY .Facility:W8Igzbt: 05-24-2022 End: 33-38-8918mekbinjjhkEA KRZYSZTOF HOY .Facility:H3Ggfnc: 05-11-2022 End: 34-67-0742yjaacidprdVR KRZYSZTOF HOY .Facility:V3Xqgqf: 02-14-2022 End: 25-76-1345kjeoavicdqKL KRZYSZTOF HOY .Facility:P9Gxzof: 11-19-2018 End: 45-07-9812Bambwsz encounter procedurePROVIDER UNKNOWNFacility:UTMCStart: 11-13-2018 End: 96-49-9677Vevmrvi encounter procedureDEFAULT PHYSICIANFacility:[facility]: 10-31-2018 End: 03-12-9319Dlgxnkw encounter procedureDEFAULT PHYSICIANFacility:[facility]: 09-23-2018 End: 37-64-8531Bqdchcx encounter procedureDEFAULT PHYSICIANFacility:[facility]ITALtart: 09-05-2018 End: 94-85-2045Zcyibna encounter procedureDEFAULT PHYSICIANFacility:[facility] Procedures DateProcedureProcedure DetailPerforming ClinicianStart: 80-35-2340Zvhei X-ray of right shoulderKrzysztof Thompson MD Work Phone: Start: 93-22-1608U-ray of thoracic spine, two views Krzysztof Thompson MD Work Phone: Start: 46-73-0058N-ray of lumbar spine, six views including bending viewsKrzysztof Thompson MD Work Phone: [phone]-art: 74-18-9747W-ray of cervical spineKrzysztof Thompson MD Work Phone: Start: 55-85-7294Wnjt energy X-ray absorptiometry Krzysztof Thompson MD Work Phone: Start: 07-17-2024 End: 59-72-8235Djhtdr emg ea extremty w/paraspinl area completeChristopher Shama DO Work Phone: Start: 33-53-1012Rqiuo hip unilateral with pelvis 2-3 viewsJames A Meryl DO Work Phone: Start: 37-19-4214UxbpbcowqhaVct In System Ref Prov Start: 58-98-3034Qrszrozde colonoscopyMD Krzysztof Thompson Work Phone: Start: 07-39-2230BrpkvrkmxlaazwcmcmpogtwxfvGY Krzysztof Thompson Work Phone: Plan of Treatment DateCare ActivityDetailAuthorStart: 16-10-0545FBiK,Tdap and Td Vaccines (2 - Td or Tdap)DTaP,Tdap and Td Vaccines (2 - Td or Tdap)[facility] SystemStart: 79-80-2000Awymdba ScreeningTobacco ScreeningProMedica Health SystemStart: 40-83-3764Mruwptp ScreeningTobacco ScreeningProMedica Health SystemStart: 27-31-0158Gnngfwl ScreeningTobacco ScreeningProBrown Memorial Hospitalca Health SystemStart: 07-30-2025 End: 71-53-2132Umjxyhu encounter kofccqbpf12/20/2025 11:00 AM EST Office Visit [facility] [address] [place] [phone] Bon Covarrubias MD [address] [place] [address], [address] [place], [place] [phone] (Work) [facility] SurgeryStart: 42-70-6794Fouxjfx ScreeningTobacco ScreeningProMedica Health SystemStart: 70-46-2696Lqfvdxn ScreeningTobacco ScreeningProMedica Health System Start: 11-27-3984Kalsnrs ScreeningTobacco ScreeningGood Hope Hospitaltart: 92-65-6897Crpjxfum identified in Urine by CultureUrine CultureChillicothe Hospitaltart: 70-92-6581Naevu cultureChillicothe Hospitaltart: 04-40-1423NESZD-19 Vaccine ( season)COVID-19 Vaccine ( season)[facility]: 65-65-8921Qklzixaer vaccination Influenza VaccineDayton VA Medical Center SystemStart: 91-10-1724Zctoanf referral [facility] Work Phone: Start: 24-67-2067W-ray of thoracic spine, two viewsXR thoracic spine 2VChillicothe Hospitaltart: 68-06-3902SW Thoracic spine 2 ViewsChillicothe Hospitaltart: 85-32-3175Hdbwgvo [facility] Work Phone: Start: 08-11-2024 End: 04-98-9856Nzxfbnc encounter zmeaswrvp45/02/2024 2:15 PM EST Office Visit [facility] [place] [phone] Raven Sesay [address] [place], [place] [phone] [facility] ROUTEStart: 07-28-2024 End: 24-29-5848Zwknbowyr to same day surgery ezekey7707/28/2024 9:15 AM EST - 07/28/2024 9:45 AM EST Surgery [facility] [address] [place] [address] Nidia White MD [address] [place] [address] ESOPHAGOGASTRODUODENOSCOPY DIAGNOSTIC [33852 (CPT )][facility] - SurgeryComment on above:ESOPHAGOGASTRODUODENOSCOPY DIAGNOSTIC [15251 (CPT )]Start: 07-28-2024 End: 44-96-3390Yyvrsvesvobpaxsrxumrnkstks transoral diagnostic ESOPHAGOGASTRODUODENOSCOPY DIAGNOSTIC vomiting, gastroesophageal reflux, dysphagia 07/28/2024 9:15 AM ESTFREMONT SURGERYStart: 96-30-2394Aonqlualfm hospital visit by vreplhhxt06/18/2024 9:15 AM EST Hospital Encounter [facility] [address] [place] [phone] Nidia White MD [address] [place] [phone] [facility]: 07-22[facility]2024 End: 43-05-8084xypviaoath32/12/2024 3:10 PM EST Support Visit [facility] [address] [place] [phone] [facility]mitStart: 07-17-2024 End: 26-86-9722Xfsjcup encounter procedureNOMS [place] STATE ROUTEComment on above:ArrivedStart: 07-15-2024 End: 05-67-0033Dodgssq encounter procedureNOMS CI ORTHOPAEDICSStart: 07-14-2024 End: 34-51-5814EES 1 ExtremeityEMG 1 Extremeity Neurology Routine Paresthesia Expected: 07/14/2024, Expires: 07/14/2025[facility] Work Phone: comment on above:Expected: 07/14/2024, Expires: 07/14/2025Start: 07-14-2024 End: 37-97-5425Ikcvvvz encounter procedureNOMS [address] STATE ROUTEComment on above:Brachial plexopathy; Ulnar neuropathy of left upper extremityStart: 06-17-2024 End: 40-41-0178Snprnhs encounter /08/2024 1:30 PM EDT Office Visit [facility] [address] [place] [phone] Cleve Sheth, DO [address] [facility] [address] [place] [address] Chronic right hip pain (Primary Dx); Sacral insufficiency fracture, initial encounter (CMS/HCC); Closed fracture of multiple pubic rami, right, initial encounter (CMS/HCC)[facility] Comment on above:Chronic right hip pain (Primary Dx); Sacral insufficiency fracture, initial encounter (CMS/HCC); Closed fracture of multiple pubic rami, right, initial encounter (CMS/HCC)Start: 06-16-2024 End: 73-45-9077Dchbcud encounter rpeycebff71/07/2024 12:30 PM EDT Office Visit [facility] [address] [facility] [address] [place] [address] Raven Sesay DO [address] [place] [address] [facility]: 05-11-2024 COVID-19 Vaccine ( season)COVID-19 Vaccine ( season) [facility] SystemStart: 34-02-8108Ylcnfsphm vaccinationInfluenza Vaccine (#1)[facility] HospitalStart: 57-34-5678LywiewuuyChillicothe Hospitaltart: 84-49-9426ZqpzcdwcmChillicothe Hospitaltart: 02-49-6682UFR ( or age 60+ yrs) (1 - 1-dose 75+ series)RSV ( or age 60+ yrs) (1 - 1-dose 75+ series)[facility] SystemStart: 29-94-2308Fcjwfxmrpbvgaz of varicella zoster vaccineZoster (Shingles) Vaccine (3 of 3)[facility] SystemStart: 14-73-9532Eqtx Risk ScreeningFall Risk ScreeningDayton VA Medical Center SystemStart: 25-35-3407MWuT,Tdap and Td Vaccines (1 - Tdap)DTaP,Tdap and Td Vaccines (1 - Tdap)[facility] SystemStart: 32-34-0770Laypywktag ScreeningDepression ScreeningProKettering Health Behavioral Medical Center System End: 47-32-4321QmxfkdzslotxaubnovxmdinbbqFCL GI Routine Vomiting in adult Chronic GERD Dysphagia, unspecified type 1 Occurrences starting 07/16/2024 until 07/16/2025[facility] Work Phone: Comment on above:1 Occurrences starting 07/16/2024 until 07/16/2025Patient EducationSelect [facility] Special[facility] Work Phone: [facility] referralThe [facility] Hospital Work Phone: XR Shoulder - right ViewsJupiter Medical Center Immunizations Immunization DateImmunizationNotesCare FrgteclcKjzctjko46-06-2189yfkrlkkzc virus vaccine, unspecified formulationChristopher Shama DO Work Phone: [facility] HospitalTyvkaasgxh02-28-0594Xdngrwfio, Seasonal, Quadrivalent, AdjuvantedJames Meryl DO Work Phone: [facility] HospitalHtjtauvdfx29-97-9142qrbxehuvk virus vaccine, unspecified formulationJames Meryl DO Work Phone: [facility] HospitalXwdrharzju81-88-7694fgnrwqyeo, high dose seasonal, preservative-freeJames Meryl DO Work Phone: [facility] HospitalHcdczlyeig05-26-9787Fepgeonvz, High-dose Seasonal, Quadrivalent, Preservative FreeJames Meryl DO Work Phone: [facility] HospitalAnnjzbqgha44-24-1703Defxcxbbm, High-dose Seasonal, Quadrivalent, Preservative FreeJames Meryl DO Work Phone: [facility] HospitalZrorvmaahv92-54-1299UULM-MwQ-8, UnspecifiedJames Meryl DO Work Phone: [facility] HospitalVecvhgttbb19-56-3650fvfukn vaccine, unspecified formulationKaitlin Macdonald VIBRATION ANALYST-LOGISTICS PLANNER Work Phone: [facility] HospitalViwvec68-81-4243fhokuafqx, high dose seasonal, preservative-freeJames Meryl DO Work Phone: [facility] HospitalPrvnzggjlc08-37-7296tmqzctzxx, injectable, quadrivalent, preservative freeJames Meryl DO Work Phone: [facility] HospitalNrmrhuaili02-21-1227ijovjgbsq, high dose seasonal, preservative-freeJames Meryl DO Work Phone: [facility] HospitalUemdviwyij65-68-5311rueoouwid, high dose seasonal, preservative-freeJames Meryl DO Work Phone: [facility] HospitalXjlgfjiivl68-74-5054cbjfmpflweow conjugate vaccine, 13 valentJames Meryl DO Work Phone: [facility] HospitalLqxakylmlz70-36-5725gzdcamknm, seasonal, injectableJames Meryl DO Work Phone: [facility] HospitalFdrgulyoof26-06-2685ppwdhe vaccine, liveLifecare Hospital Of Pittsburgh DO Work Phone: [facility] HospitalBrhgmyrxzx54-35-1979skdgiwerqhzz polysaccharide vaccine, 23 valentAlecMemorial Hermann [facility] Hospital DO Work Phone: [facility] HospitalRvepsoywuc36-55-2181yvmhemul influenza, intradermal, preservative freeLifecare Hospital Of Pittsburgh DO Work Phone: [facility] Payers DatePayer CategoryPayerPolicy ID2025Self-pay2022MedicareANTHEMANTHEM MEDICARE ADVANTAGE ANTHEM MEDICARE ADVANTAGE [id number] 2021-Present [address] [place] [id number] 2022Medicare (Managed Care)ANTHEM MEDICARE ADVANTAGE [id number] 2018MedicareMedicare HMOANTHEM MEDICARE Member Subscriber Plan / Payer (Effective 2017-Present) Name: Lopez Mac Relation to Subscriber: Self Name: Sheila Mac Payer ID: [id number] (NAIC) Group ID: [id number] Type: Not on file Address: [address] [place] [id number] [id number] 2..1.784045.3.579.2. [id number] 2..1.624009.3.57[id number] 2..1.566753.3.579.2.[id number] 2..1.932638.3.579.[id number] 2..1.607610.3.579.2.10851-62-4016Kutkejb3848103 2..1.101357.3.579.2.12974-33-6378Tjpfyin8589612 2..1.264049.3.579.2.65237-72-1433Lqjsldj2134498 2..1.479723.3.579.2.42257-02-1338Dbzazyf7807581 2.16840.1.864474.3.579.2.67291-38-5670Okxjtvv3224999 2.16840.1.803017.3.579.2.83520-85-1863Ghsiast1806831 2.16840.1.818122.3.579.2.95559-76-5235Mewcide7178204 2.840.1.349776.3.579.2.61862-82-9504Ngwtihk2431349 2.840.1.127420.3.579.2.38557-87-5165Dteaktw2375792 2.840.1.224452.3.579.2.06762-06-5767Avaoden4774821 2.840.1.148404.3.579.2.58374-61-4501Jvhfamt4141411 2.840.1.341894.3.579.2.78326-75-9489Mkjjgnl9188592 2.840.1.740870.3.579.2.86202-83-4577Tqiqsbv6678079 2.840.1.170965.3.579.2.98910-26-1540Uqkfewa4381422 2.840.1.788610.3.579.2.28923-03-6033Nynowds2348090 2.840.1.021149.3.579.2.08756-22-7108Adwushm0456109 2.840.1.380794.3.579.2.76441-23-3980Mqegwsi1514455 2.840.1.297533.3.579.2.40200-99-1546Lbcpjeb1625480 2.840.1.736509.3.579.2.65174-02-3125Pqvjyyi6096015 2.16840.1.698568.3.579.2.91259-21-5836Xiyvcjk87911156 2.16840.1.295444.3.579.2.666266-72-1885Mardgtx60763489 2.16840.1.702424.3.579.2.319085-96-8285Memdpzy92293195 2.16840.1.787977.3.579.2.813342-84-2719Hltwied9573802 2.0.1.922348.3.579.2.343712-82-1650Yecncqg3000102 2.840.1.284981.3.579.2.394029-91-2760Rpkbiog7486295 2.840.1.762128.3.579.2.464067-76-5082Xumbtqg3972649 2.840.1.423510.3.579.2.187515-55-4995Lhbtrxa0710062 2.840.1.328218.3.579.2.925882-47-6177Vrahxol7982238 2.840.1.755705.3.579.2.421088-61-8517Cxhvejy0508714 2.840.1.465009.3.579.2.041819-94-1967Ukqqpnt6420707 2.16840.1.308349.3.579.2.576259-03-7172Fsnqref6980412 2.16840.1.404813.3.579.2.966644-70-0560Uygkerk0818701 2.840.1.210487.3.579.2.923559-33-1633Gtrndkg8142086 2.0.1.026270.3.579.2.308296-05-0946Wnrbfac137401589 2.16840.1.345195.3.579.2.615424-82-4409Ugszcmx324609277 2.840.1.208629.3.579.2.643821-95-1870Ggydpvg70735202 2.16840.1.6327[id number] 2.840.1.341238.3.579.2.405Rkjcqgx56302696 2.840.1.697721.3.579.2.531 Uwukohb14442525 2.0.1.820853.3.579.2.419Bdbninf09954388 2.840.1.950168.3.579.2.531 Social History DateTypeDetailFacilityStart: 09-28-2017 End: 03-71-6024Cfvhmcb smoking status NHISNever smoked tobacco (finding) [facility]: 79-86-3536Amb Assigned At BirthFemale [facility]: 01-09-2024 End: 26-95-7800Imctdzxjr beverage intakeLifetime non-drinker (finding)[facility] HealthcareStart: 10-21-2020 End: 36-45-2830Hoysgls of Social functionNOMS HealthcareStart: 10-21-2020 End: 90-97-8881Flrtyhv use panelNOUT HealthcareStart: 47-81-3208Rlj assigned at birthNot on fileJORDAN VALLEY MEDICAL [facility]ENTER HealthcareStart: 24-39-3179Nyzrbvf use and exposure Smokeless tobacco non-userProThomasville Regional Medical Center Health SystemStart: 07-16-2024 End: 69-29-2672Pkpcsjkxh beverage intakeCurrent non-drinker of alcohol (finding) [facility] HospitalChildcareUnknownPFormerly [facility] Caretart: 04-15-2015 SexFelizy (finding)[facility] Goals DatePatient GoalDesired Activity/State Clinical Notes 02-14-2022 to 07-15-2025 Note Date & UjrlWgkeJbtumaxi32-57-7305 Miscellaneous Notes* Telephone Encounter - Jena Camejo CMA - 07/15/2025 10:33 AM EST Sheila called the office and she was confused on if she should keep her appointment with [facility] for her GI issues, or if she should try to find someone closer to her home. Her friend told her that their was a surgeon in [place] that is not a lot closer to her. I spoke on her speaker phone with her, her , & her son Cleve who will be driving her to the appointment. He does know how to use [employer]. While she does understand it's her decision where she goes, she was asking for some advise. I told her if she stays in [facility] they'll have easy access to everything that [...] & let us know. documented in this encounterCleveland Clinic [facility] Hospital11-05-2025 Telephone encounter Note* Telephone Encounter - Jena Camejo CMA - 07/15/2025 10:33 AM EST Sheila called the office and she was confused on if she should keep her appointment with [facility] for her GI issues, or if she should try to find someone closer to her home. Her friend told her that their was a surgeon in [place] that is not a lot closer to her. I spoke on her speaker phone with her, her , & her son Cleve who will be driving her to the appointment. He does know how to use [employer]. While she does understand it's her decision where she goes, she was asking for some advise. I told her if she stays in [facility] they'll have easy access to everything that [...] they have any further questions or concerns [facility]11-05-2025 Telephone encounter Note* Telephone Encounter - Jena Camejo CMA - 07/15/2025 10:33 AM EST I did try to call the patient to see if she wants to add her son as an emergency contact. I left her a message to call us & let us know. [facility]10-14-2025 History of Present illness Narrative* Kaitlin Macdonald, VIBRATION ANALYST-LOGISTICS PLANNER - 06/23/2025 10:30 AM EDT Images from [...] was March [address] Sanchez at [facility]. Sigmoid diverticular stricture noted, [...] Back pain COPD (chronic obstructive pulmonary disease) ([facility]) Diverticulitis Fecal incontinence GERD (gastroesophageal reflux disease) Hyperlipidemia Hypertension Pancreatitis Peptic ulceration Pneumonia PONV (postoperative nausea and vomiting) Prolonged emergence from general anesthesia Rectal bleeding Stroke ([facility]) x2, patient states light strokes Visual impairment Past Surgical History: Procedure Laterality Date APPENDECTOMY BACK SURGERY LOWER CHOLECYSTECTOMY 2016 patient states did not have this surgery COLONOSCOPY COLONOSCOPY N/A 05/26/2021 Performed by Freeman Michelle DO at [facility] EGD N/A 10/01/2017 Performed by Freeman Michelle DO at [facility] ESOPHAGOGASTRODUODENOSCOPY ESOPHAGOGASTRODUODENOSCOPY N/A 05/26/2021 Performed by Freeman Michelle DO at [facility] ESOPHAGOGASTRODUODENOSCOPY DIAGNOSTIC N/A 07/28/2024 Performed by Nidia White MD at [facility] HYSTERECTOMY KNEE ARTHROSCOPY Right patient denies sugery, [...] Interpersonal Safety: Unknown (11/01/2023) Received from [facility] [place] Safety & Environment Fear of [...] patient/family/caregiver Referring and communicating with other health landcare facilitator Incontinence of feces, unspecified fecal incontinence type [R15.9] TAMIE REYES [facility] [place] This note was created with the assistance of a speech recognition program. While intending to generate a timely document that accurately reflects the content of the visit, no guarantee can be provided that every grammatical or spelling mistake has been or will be identified or corrected. Thank you for your understanding. TAMIE Reyes 06/23/25 1034 [facility]* Diagnosis Onset Date Resolution Status Admit Date Left lumbosacral radiculopathy acuteJune 2024 2:18pmSpondylolisthesis, lumbar regionacuteJune 2024 2:18pmChronic painacuteJuly 2024 7:53amMyalgiaacuteJuly 2024 7:53am Thoracic back painacuteJuly 2024 7:53am [facility] Work Phone: 1(115) 622-618206-12-2025 Evaluation note* Diagnosis Onset Date Resolution Status Admit Date Left lumbosacral radiculopathy acuteJune 2024 2:18pmSpondylolisthesis, lumbar regionacuteJune 2024 2:18pmChronic painacuteJuly 2024 7:53amMyalgiaacuteJuly 2024 7:53am Thoracic back painacuteJuly 2024 7:53amLeft lumbosacral radiculopathyacute March 26, 2025 2:23pmSpondylolisthesis, lumbar regionacuteJuly 2024 2:23pm [facility] Work Phone: 1(960) 889-232206-12-2025 Evaluation note* Diagnosis Onset Date Resolution Status Admit Date Left lumbosacral radiculopathy acuteJune 2024 2:18pmSpondylolisthesis, lumbar regionacuteJune 2024 2:18pmChronic painacuteJuly 2024 7:53amMyalgiaacuteJuly 2024 7:53am Thoracic back painacuteJuly 2024 7:53amLeft lumbosacral radiculopathyacute March 26, 2025 2:23pmSpondylolisthesis, lumbar regionacuteJuly 2024 2:23pmChronic painacuteJuly 2024 8:55amMyalgiaacuteJuly 2024 8:55am Shoulder pain, rightacuteJuly 2024 8:55amThoracic back painacuteJuly 2024 8:55am [facility] Work Phone: [phone] Evaluation note* Diagnosis Onset Date Resolution Status [...] 2024 1:29pmPostmenopausalacuteAugust 2024 1:29pmStomach ulceracuteAugust 2024 1:29pm [facility] Work Phone: [phone] Evaluation note* Diagnosis Onset Date Resolution Status [...] rightacuteAugust 2024 8:05amThoracic back painacuteAugust 2024 8:05am [facility] Work Phone: 1(775) 263-184104-17-2025 History of Present illness Narrative* Kaitlin Arguelles Torres, VIBRATION ANALYST-LOGISTICS PLANNER - 12/25/2024 10:00 AM EDT Images from [...] was March [address] Sanchez at [facility]. Sigmoid diverticular stricture noted, [...] Back pain COPD (chronic obstructive pulmonary disease) ([facility]) Diverticulitis GERD (gastroesophageal reflux disease) Hyperlipidemia Hypertension Pancreatitis Peptic ulceration Pneumonia PONV (postoperative nausea and vomiting) Prolonged emergence from general anesthesia Rectal bleeding Stroke (CMS-HCC) x2, patient states light strokes Visual impairment Past Surgical History: Procedure Laterality Date APPENDECTOMY BACK SURGERY LOWER CHOLECYSTECTOMY 2017 patient states did not have this surgery COLONOSCOPY COLONOSCOPY N/A 05/26/2021 Performed by Freeman Michelle DO at [facility] EGD N/A 10/01/2017 Performed by Freeman Michelle DO at [facility] ESOPHAGOGASTRODUODENOSCOPY ESOPHAGOGASTRODUODENOSCOPY N/A 05/26/2021 Performed by Freeman Michelle DO at [facility] ESOPHAGOGASTRODUODENOSCOPY DIAGNOSTIC N/A 07/28/2024 Performed by Nidia White MD at [facility] HYSTERECTOMY KNEE ARTHROSCOPY Right patient denies sugery, [...] Interpersonal Safety: Unknown (11/01/2023) Received from [facility] Safety & Environment Fear of [...] patient/family/caregiver Referring and communicating with other health landcare facilitator Bright red blood per rectum [K62.5] TAMIE REYES [facility] General Surgery [place] This note was created with the assistance of a speech recognition program. While intending to generate a timely document that accurately reflects the content of the visit, no guarantee can be provided that every grammatical or spelling mistake has been or will be identified or corrected. Thank you for your understanding. TAMIE Reyes 12/31/24 1056 documented in this encounterC[facility] History of Present illness Narrative* Raven [...] Diverticulosis OTHER SURGICAL HISTORY 2017 perforated ulcer [place] ARTHRS KNE SURG W/MENISCECTOMY MED/LAT W/SHVG Right [...] , wrist extensors , wrist flexor , minute clerk for basic traffic strength 5/5. LUE Strength deltoid , biceps , triceps , wrist extensors , wrist flexor , minute clerk for basic traffic strength 5/5. RLE Strength illopsoas, quadriceps, tibialis [...] reflex 0 . Metzger's sign negative. Coordination: Dzihic-yn-gjwf testing and rapid alternating movements are normal Gait: Patient ambulates with a walker Review and summary of old records: EMG of the left upper extremity on 07/17/2024: A remote C8 radiculopathy on the left which is tiob-mb-dokvovee. No evidence of plexopathy or mononeuropathy. Venous [...] instructions documented in this encounterCedar County Memorial [id number] Miscellaneous Notes* Telephone Encounter - Angelica Dawson [...] with no further questions. documented in this encounterC[facility]11-25-2024 Telephone encounter Note* Telephone Encounter - [...] 8:17 PM EST To: Nidia White MD [facility]11-25-2024 Telephone encounter Note* Telephone Encounter - Angelica Dawson CMA - 08/04/2024 2:31 PM EST Spoke with patient regarding pathology results. Patient verbally understood with no further questions. [facility]11-12-2024 Miscellaneous Notes* Perioperative Nursing Note - Sakina Marvin RN - 07/22/2024 3:10 PM EST Preoperative Education Checklist- General Surgery date: 07/28/24 Surgery time: 914 Arrival time: 714 1. Bring a photo ID and your insurance card with you the day of surgery. You will check in at the main lobby of the [facility]- registration desk is straight ahead as soon as you walk in. Tell them you are here for surgery. 2. If you have a Living Will/Durable Power of Field Seismologist for Health Care that is not on [...] after you have bathed. 5. NO nail mexican/acrylic on at least one finger. If you are having a hand, wrist or foot surgery then all nail mexican and artificial/acrylic nails must be removed from [...] please call the Preadmission Testing office at [phone], Mon.-Fri. 7 a.m.-3 p.m. Leave a voicemail [...] days prior to procedure documented in this encounterCleveland Clinic [facility]11-12-2024 Nurse Note* Perioperative Nursing Note - Sakina Marvin RN - 07/22/2024 3:10 PM EST Preoperative Education Checklist- General Surgery date: 07/28/24 Surgery time: 914 Arrival time: 714 1. Bring a photo ID and your insurance card with you the day of surgery. You will check in at the main lobby of the [facility]- registration desk is straight ahead as soon as you walk in. Tell them you are here for surgery. 2. If you have a Living Will/Durable Power of Field Seismologist for Health Care that is not on [...] after you have bathed. 5. NO nail mexican/acrylic on at least one finger. If you are having a hand, wrist or foot surgery then all nail mexican and artificial/acrylic nails must be removed from [...] please call the Preadmission Testing office at [phone], Mon.-Fri. 7 a.m.-3 p.m. Leave a voicemail [...] Stop taking 0 days prior to procedure [facility]11-07-[facility] History of Present illness Narrative* KALI Wolfe - 07/17/2024 9:00 AM EST Images from the original note were not included. Reason for Appointment: EMG Patient: Sheila Mac : 1950 EMG Computer: Bestowed Referring Physician: Dr. Raven Sesay EMG: CINTHYA technical proposal writer: Jarrett Palmer RT(R) Office Location: [place] Reason for EMG: c/o numbness/tingling in left hand especially in 3rd 4th 5th digits, weakness in left hand. Hx of surgery to neck. No hx of DM. Taking ASA & Plavix. Comments: Procedure was explained to the patient & who expressed understanding. Patientappeared to have tolerated the test well despite some discomfort due to the nature of the test. documented in this [facility]11-06-2024 History of Present illness Narrative* Kaitlin Macdonald, VIBRATION ANALYST-LOGISTICS PLANNER - 07/16/2024 11:30 AM EST Images from [...] Diagnosis Date COPD (chronic obstructive pulmonary disease) ([facility]) Diverticulitis GERD (gastroesophageal reflux disease) Hyperlipidemia Hypertension Pancreatitis Peptic ulceration PONV (postoperative nausea and vomiting) Stroke ([facility]) x2, patient states light strokes Visual impairment Past Surgical History: Procedure Laterality Date APPENDECTOMY BACK SURGERY LOWER CHOLECYSTECTOMY 2016 COLONOSCOPY COLONOSCOPY N/A 05/26/2021 Performed by Freeman Michelle DO at [facility] EGD N/A 10/01/2017 Performed by Freeman Michelle DO at [facility] ESOPHAGOGASTRODUODENOSCOPY ESOPHAGOGASTRODUODENOSCOPY N/A 05/26/2021 Performed by Freeman Michelle DO at [facility] HYSTERECTOMY KNEE ARTHROSCOPY Right patient denies sugery, [...] Interpersonal Safety: Unknown (11/01/2023) [facility] [place] Safety & Environment Fear of [...] patient/family/caregiver Referring and communicating with other health landcare facilitator Vomiting in adult [R11.10] KAITLIN MACDONALD, VIBRATION ANALYST-LOGISTICS PLANNER [facility] General Surgery [place] This note was created with the assistance of a speech recognition program. While intending to generate a timely document that accurately reflects the content of the visit, no guarantee can be provided that every grammatical or spelling mistake has been or will be identified or corrected. Thank you for your understanding. TAMIE Reyes 07/16/24 1232 documented in this encounterCleveland Clinic [facility] Hospital11-05-2024 History of Present illness Narrative* Cleve Davisonston, DO - 07/15/2024 10:30 AM EST Images from the original note were not included. HISTORY OF PRESENT ILLNESS: Sheila Mac is an 74 y.o. @ female. Chief complaint RT hip pain RT hip: using calcitonin NS Pt went to [facility] ER 06/13, X-rays done pelvis and lumbar. RX for lidoderm patches given, she states she could hardly walk. RT hip pain x 3-4 months, worsened on 05/31 after going to the grocery store. Denies injury. She hadinjections at [facility] in April without relief. She saw Dr Thompson 06/02 and 06/04, given IM injections-no relief. She is walking better, using rollator. Mild ache in the thigh. Using pain spray daily Saw Dr Thompson 06/02 and 06/04. XR done at [facility] 06/02/24. Using hot icy hot. Given IM torodol, Tramadol RX and PT ordered, XR [place] 06/05/24, MRI [facility] 06/12/24, [facility] ER 06/13/24, lidoderm patches, calcitonin NS [...] Diagnosis Date Diabetes ([facility]) Diverticulitis Gastric ulcer GERD (gastroesophageal reflux disease) HTN (hypertension) ([facility]) Osteoporosis ([facility]) Pancreatitis Rheumatic fever ALLERGIES: Allergies Allergen Reactions Iodinated Contrast Media Morphine Penicillins Nsaids Rash VITALS: Visit Vitals Smoking Status Never PHYSICAL EXAM: Ortho Exam RIGHT HIP Using Rollator Strength 4/5 ROM 30 IR and 30 ER IMAGING: June 05, 2024 x-rays from the [place] office AP pelvis and lateral of the right hip demonstrate an intact hip joint space. There are no fractures detected. The bone has an osteopenic appearance.The joint spaces are symmetric. There is no obvious effusion or soft tissue swelling. Impression: No acute findings on x-rays of the right hip Hemal Sheth D.O. MRI of the right hip from the [facility] center. There is a sacral [...] right, initial encounter ([facility]) S32.591A calcitonin, salmon, (Miacalcin) 200 UNIT/ACT nasal [...] D.O. documented in this encounterCedar County Memorial [id number] History of Present illness Narrative* Raven Sesay [...] headaches. Past Medical History: Diagnosis Date Diabetes ([facility]) Diverticulitis Gastric ulcer GERD (gastroesophageal reflux disease) HTN (hypertension) ([facility]) Osteoporosis ([facility]) Pancreatitis Rheumatic fever Past Surgical History: Procedure Laterality Date APPENDECTOMY BACK SURGERY 1991 HEART CATH MAMMOGRAPHY 2013 HYSTERECTOMY Diabetes LUMBAR SPINE SURGERY NECK SURGERY OTHER SURGICAL HISTORY Sigmoid Diverticulosis OTHER SURGICAL HISTORY 2017 perforated ulcer [place] ARTHRS KNE SURG W/MENISCECTOMY MED/LAT W/SHVG Right [...] , wrist extensors , wrist flexor , minute clerk for basic traffic strength 5/5. LUE Strength deltoid , biceps , triceps , wrist extensors , wrist flexor , minute clerk for basic traffic strength 5/5. RLE Strength illopsoas, quadriceps, tibialis [...] reflex 0 . Metzger's sign negative. Coordination: Xrdosi-xu-hbhl testing and rapid alternating movements are normal [...] instructions documented in this encounterCedar County Memorial [id number] History of Present illness Narrative* Cleve Arguelles Meryl, - 06/17/2024 1:30 PM EDT Images from the original note were not included. HISTORY OF PRESENT ILLNESS: Sheila Mac is an 74 y.o. @ female. Chief complaint RT hip pain RT hip: here for MRI results [facility] 06/12/24 Pt went to [facility] ER 06/13, X-rays done pelvis and lumbar. RX for lidoderm patches given, she states she could hardly walk. RT hip pain x 2-3 months, worsened on 05/31 after going to the grocery store. Denies injury. She hadinjections at [facility] in April without relief. She saw [...] Thompson 06/02 and 06/04. XR done at [facility] 06/02/24. Using hot icy hot. Given IM torodol, Tramadol RX and PT ordered, XR [place] 06/05/24, MRI [facility] 06/12/24, [facility] ER 06/13/24, lidoderm patches [facility] 13, 2024. [...] HISTORY: Past Medical History: Diagnosis Date Diabetes ([facility]) Diverticulitis Gastric ulcer GERD (gastroesophageal reflux disease) HTN (hypertension) ([facility]) Osteoporosis ([facility]) Pancreatitis Rheumatic fever ALLERGIES: Allergies [...] IMAGING: June 05, 2024 x-rays from the [place] office AP pelvis and lateral of the right hip demonstrate an intact hip joint space. There are no fractures detected. The bone has an osteopenic appearance.The joint spaces are symmetric. There is no obvious effusion or soft tissue swelling. Impression: No acute findings on x-rays of the right hip Hemal [place] I reviewed an MRI of the right hip from the [place] [facility]. There is a sacral insufficiencyfracture and suspected insufficiency fractures of the right superior and inferior pubic rami. The right hip joint is intact and there are no fractures in the hip. There is loss of articular cartilage in the right hip consistent with arthritis. ASSESSMENT: ICD-10-CM 1. Chronic right hip pain M25.551 G89.29 2. Sacral insufficiency fracture, initial encounter ([facility]) M84.48XA 3. Closed fracture of multiple pubic rami, right, initial encounter ([facility]) S32.591A calcitonin, salmon, (Miacalcin) 200 UNIT/ACT nasal [...] D.O. documented in this encounterCedar County Memorial [id number] History of Present illness Narrative* Cleve Sheth DO - 06/05/2024 1:30 PM EDT Images from the original note were not included. HISTORY OF PRESENT ILLNESS: Sheila Mac is an 74 y.o. @ female. Chief complaint RT hip pain New problem: RT hip pain. Dr Thompson referral. XR [facility] 06/03/24 RT hip pain x 2-3 months, worsened on 05/31 after going to the grocery store. Denies injury. She hadinjections at [facility] in April without relief. She saw Dr Thompson 06/02 and 06/04, given IM injections-no relief. She is having difficulty walking, using a walker. Pain with WB. Pain in the buttock, hamstringand inner thigh. Pain can be aching and sharp. Difficulty with sit to stand. Pain 1/10 at rest, goes to 10+/10 with WB. 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 Taking TYL, using icy hot. Saw Dr Thompson 06/02 and 06/04. XR done at [facility] 06/02/24. Using hot icy hot. Given [...] HISTORY: Past Medical History: Diagnosis Date Diabetes ([facility]) Diverticulitis Gastric ulcer GERD (gastroesophageal reflux disease) HTN (hypertension) ([facility]) Osteoporosis ([facility]) Pancreatitis Rheumatic fever ALLERGIES: Allergies [...] report of the right hip from the [facility] dated May of 2024 slightnarrowing of [...] D.O. documented in this encounterCedar County Memorial HospitalVduoumfrhi12-17-8258 Telephone encounter Note* Telephone Encounter - Bella Saavedra - 06/05/2024 11:40 AM EDT $40.00 copay / Prior auth needed. [facility] HospitalCdqpihtkaz89-89-9673 Miscellaneous Notes* Telephone Encounter - Bella Saavedra - 06/05/2024 11:40 AM EDT $40.00 copay / Prior auth needed. documented in this encounterCedar County Memorial HospitalTvoqwcwfvi11-13-2057 Procedure [facility]05-28-2024 Procedure [facility]04-07-2023 NoteCardiology Follow Up Progress Note Chief [...] agreeable. She will be (more content not included)...[facility] 12-15-2022 NoteReview of Systems Cardiovascular: Positive for leg swelling. Respiratory: Positive for shortness of breath. Skin: Positive for color change. Neurological: Positive for headaches. All other systems reviewed and are negative.[facility] 07-25-2022 NotePROCEDURE: MRA NECK WO CON [...] authenticated by: DANIEL PINEDA Date: 2022-07-25 13:25[facility] [id number] NotePROCEDURE: XR FOOT LT MIN 3 VIEWS HISTORY: Pain in left foot ; acute plantar pain COMPARISON: None. FINDINGS: BONES:No fracture, acute abnormality, or significant arthropathy. SOFT TISSUES:No visible soft tissue swelling. EFFUSION:None visible. OTHER: Negative. IMPRESSION: 1. No acute abnormality, significant degenerative changes, or findings to account for patient's symptoms. Electronically authenticated by: DANIEL PINEDA Date: 2022-05-11 12:51[facility] [id number] NotePROCEDURE: XR KNEE LT 4V or > COMPARISON: None. HISTORY: Osteoarthritis FINDINGS: BONES:No fracture, acute abnormality, or significant arthropathy. SOFT TISSUES:Negative. No visible soft tissue swelling. EFFUSION:Moderate suprapatellar joint effusion OTHER: Negative. IMPRESSION: Moderate joint effusion Electronically authenticated by: GODWIN BECK Date: 2022-02-14 17:30[facility] [place] HospitalEvaluation noteNo assessment information availableSelect [facility] Work Phone: Evaluation note* Diagnosis Onset Date Resolution Status Duodenal diverticulum acuteHiatal herniaacuteIBS (irritable bowel syndrome)acuteScreening for colon cancerEast [facility] Work Phone: Evaluation note* Diagnosis Chronic right hip pain- Primary Sacral insufficiency fracture, initial encounter ([facility]) Closed fracture of multiple pubic rami, right, initial encounter ([facility]) documented in this encounter [facility] HealthcareEvaluation note* Diagnosis Paresthesia- Primary Disturbance of skin sensation documented in this encounter [facility] HealthcareEvaluation note* Diagnosis Chronic right hip pain- Primary Sacral insufficiency fracture with routine healing, subsequent encounter Closed fracture of multiple pubic rami, right, initial encounter ([facility]) documented in this encounter [facility] HealthcareEvaluation note* Diagnosis Cervical radiculopathy- Primary Brachial neuritis or radiculitis nos Paresthesia Disturbance of skin sensation documented in this encounter [facility]Evaluation note* Diagnosis Left hand pain- Primary Pain in soft tissues of limb Primary osteoarthritis of hand, unspecified laterality documented in this encounter [facility] HealthcareEvaluation note* Diagnosis Chronic right hip pain- Primary documented in this encounter [facility] HealthcareEvaluation note* Diagnosis Vomiting in adult- Primary History of gastric ulcer Chronic GERD Hiatal hernia Diaphragmatic hernia without mention of obstruction or gangrene Dysphagia, unspecified type [facility]* Diagnosis Bright red blood per rectum- Primary Hemorrhage of rectum and anus documented in this encounter [facility] SystemEvaluation note* Diagnosis Incontinence of feces, unspecified fecal incontinence type- Primary Diverticular stricture ([facility]) documented in this encounter [facility] SystemHistory and physical note Author Ben Sanchez [facility] February 05, 2024 1:08pmNote Date/TimeMay 2023 1:08pm[place] [address] Gastroenterology H&P Signed Patient: Sheila Mac MR#: [id number] : 1950 Acct:[id number] Age/Sex: 73 / F Adm Date: 4 Loc: Room: Type: [facility] Attending Dr: Ben Sanchez MD Copies [...] 1308 [facility] Work Phone: History and physical note Author Ben Sanchez [facility] March 26, 2024 10:37amNote Date/TimeJuly 2023 10:37[place] [address] Gastroenterology H&P Signed Patient: Sheila Mac MR#: [id number] : 1950 Acct:[id number] Age/Sex: 73 / F Adm Date: 4 Loc: Room: Type: [facility] Attending Dr: Ben Sanchez MD Copies [...] signed by Ben Sanchez MD> 03/26/24 1037 [facility] Work Phone: Hospital Discharge instructionsAmbulatory Orders* Referral to Orthopedic Surgery Location: None [facility] Work Phone: InstructionsNot on filedocumented in this encounter [facility] SystemInstructionsNot on filedocumented in this encounter [facility] SystemInstructionsNot on filedocumented in this encounter [facility] SystemInstructionsNot on filedocumented in this encounter [facility] SystemInstructions* Attachments The following attachments cannot be sent through Care Everywhere. * Hemorrhoids (Hungarian) documented in this encounterProMedica Health SystemInstructionsNot on file documented in this encounterProMedica Health SystemInstructionsNot on file documented in this encounterProThomasville Regional [facility] Health SystemReason for referral (narrative)No reason for referral information availableSelect [facility] Work Phone: Reason for visit Narrative* Consultation (Routine) - ClosedSpecialtyDiagnoses / ProceduresReferred By ContactReferred To Contact Neurology Diagnoses Brachial plexopathy Ulnar neuropathy of left upper extremity Procedures [place] OFFICE/OUTPATIENT [facility] 60 MINUTES Cleve Sheth DO [address] [facility] [address] [place] [address] Phone: tel: fax: Daniel Patiño MD [address] [place] [address] Phone: tel: fax: Referral IDSGiuliano DateExpiration DateVisits RequestedVisits [id number] Consult and Treat [facility] Summary Purpose Family History Relationship Condition Age at Onset Recorded Date/T elizabeth father Unknown Not SpecifiedDeceasedUnknown Relationship Condition Age at Onset Recorded Date/T elizabeth father Unknown motherDeceasedUnknown Advance Directives Advance Directive Response Recorded Date/ [...] 022024 9:53am CONSULT DR CALVERT DEXA DONE [facility] 03/02 ust 2024 1:29pm [...] 022024 9:53am CONSULT DR NEHAL ORTIZ DONE [facility] 03/02 ust 2024 1:29pm [...] 022024 9:53am CONSULT DR NEHAL ORTIZ DONE [facility] 03/02 ust 2024 1:29pm 1 mo fu trigger points/ consider shoulde r inj May 04, 2025 8:05am Unknown May 13, 2025 10:46am Additional Source Comments INFORMATION SOURCE (unrecogn ized section and content) DATE CREATED AUTHOR 11/24/2018 [facility] DATE CREATED AUTHOR AUTHOR'S ORGANIZ ATION 12/19/2022 [facility] DATE CREATED AUTHOR AUTHOR'S ORGANIZ ATION 01/18/2023 [facility] DATE CREATED AUTHOR AUTHOR'S ORGANIZ ATION 08/04/2024 [facility] DATE CREATED AUTHOR AUTHOR'S ORGANIZ ATION 08/12/2024 [facility] DATE CREATED AUTHOR AUTHOR'S ORGANIZ ATION 04/02/2025 [facility] DATE CREATED AUTHOR AUTHOR'S ORGANIZ ATION 05/15/2025 [facility] DATE CREATED AUTHOR AUTHOR'S ORGANIZ ATION 06/24/2025 [facility] Care Teams (unrecognized sec tion [...] ProviderActiveStart: March 11, 2025 End: March 11, 2025NICK Garciaefjimiing ProviderActiveStart: March 11, 2025 End: March 11, [...] DateEnd Date Krzysztof Thompson MD [address] [place] [address] PCP - [facility] Medicine01/09/24Team MemberRelationshipSpecialtyStart DateEnd Date Krzysztof Thompson MD [address] [place] [address] [facility]/24Team MemberRelationshipSpecialtyStart DateEnd Date Krzysztof Thompson MD [address] [place] [address] PCP - GeneralFamily Medicine01/09/24Team MemberRelationshipSpecialtyStart DateEnd Date Krzysztof Thompson MD [address] [place] [facility] [address] PCP - GeneralFamily Medicine01/09/24Team MemberRelationshipSpecialtyStart DateEnd Date Krzysztof Thompson MD [address] [place] [facility] [address] PCP - GeneralFamily Medicine01/09/24 Raven Sesay DO [address] [place] [address] Referring MruqcukhmCmdejtfzd53/4/24Team MemberRelationshipSpecialtyStart DateEnd Date Krzysztof Thompson MD [address] [place] [facility] [address] PCP - GeneralFamily Medicine01/09/24 Raven Sesay DO [address] [place] [address] Referring AoqdaktoeHobzibbpr54/4/24Team MemberRelationshipSpecialtyStart DateEnd Date Krzysztof Thompson MD [address] [place] [facility] [address] PCP - GeneralFamily Medicine01/09/24 Raven Sesay DO [address] [place] [address] Referring SwzaiphfiErvhsvcqe19/4/24Team MemberRelationshipSpecialtyStart DateEnd Date Krzysztof Thompson MD [address] [facility] [place] [address] PCP - GeneralFamily Medicine01/09/24 Raven Sesay DO [address] [address] Referring YuidzvywtGapuxchvk37/4/24Team MemberRelationshipSpecialtyStart DateEnd Date Krzysztof Thompson MD [address] [facility] [place] [address] [facility] - [facility]24 Raven Sesay DO [address] [place] [address] Referring VoqgqjqvbCbmbjzpjm69/4/24Team MemberRelationshipSpecialtyStart DateEnd Date Krzysztof Thompson MD PCP - General7/02/24Team MemberRelationshipSpecialtyStart DateEnd Date Krzysztof Thompson MD PCP - General7/17Team MemberRelationshipSpecialtyStart DateEnd Date Krzysztof Thompson MD PCP - General7/617Team MemberRelationshipSpecialtyStart DateEnd Date Krzysztof Thompson MD PCP - General7/17Team MemberRelationshipSpecialtyStart DateEnd Date Krzysztof Thompson MD PCP - General03/15/17 Team Status: Inactive Member Role Status Fifi Thompson MD Primary Care Provider Active Start: March 11, 2025 End: March 11omas Felter , MDAttending ProviderActiveStart: March 11, 2025 End: March 11, 2025 Team Status: Inactive Member Role Status Fifi Thompson MD Primary Care Provider Active Start: March 26, 2025 End: March 26, 2025Dale Ekta Calvert , MDAttending ProviderActiveStart: March 26, 2025 End: March 26, 2025 Team Status: Inactive Member Role Status Fifi Thompson MD Primary Care Provider Active Start: April 02, 2025 End: April 02, 2025Thomas Felter , MDAttending ProviderActiveStart: April 02, 2025 End: April 02, 2025 Team Status: Inactive Member Role Status Fifi Thompson MD Primary Care Provider Active Start: April 27, 2025 End: April 27omas Olexa , MDAttending ProviderActiveStart: April 27, 2025 End: April 27, 2025 Team Status: Inactive Member Role Status Fifi Thompson MD Primary Care Provider Active Start: May 04, 2025 End: May 04, 2025Thomas Feltdominik , MDAttending ProviderActiveStart: May 04, 2025 End: May 04, 2025 Team Status: Inactive Member Role Status Fifi Thompson MD Attending Provider Active Sta rt: May 13, 2025 End: May 13, 2025Team MemberRelationshipSpecialtyStart DateEnd Krzysztof Flores MD PCP General03/15/17Team MemberRelationshipSpecialtyStart DateEnd Krzysztof Flores MD PCP General03/15/17 Reason for Visit (unrecogniz ed section [...] in bones.ReasonCommentsFollow-up ReasonCommentsHeartburnGERD, referred by Kamla Luciano, NEVAEHReasonCommentsRectal BleedingRectal bleeding, last colon [facility] Sanchez at [facility] in 4Reason CommentsEncopresisBowel Incontinence, last seen 12/25/24 [...] BE BASED ON THE PRIMARY CLINICAL RECORDS. [facility] [employer] provides no warranty or guarantee of the accuracy or completeness of information in this document.
== END 2025-07-20 08:45 | disposition home or self-care (01) ==
LOC: NM 08:45
PROVIDERS: PCP Family Medicine; Visit Provider Family Medicine
DX: K80.20 Calculus of gallbladder without cholecystitis without obstruction (principal)
CPT/HCPCS: 78227; A9537

== ENCOUNTER 2025-07-25 13:03 | Outpatient (OUT) | payer MEDICARE, SELFPAY ==
--- NOTE | 2025-07-25 13:06 | US_ITS ---
The [address] [address] Patient Name: EDIN SAMANIEGO MRN: [id number] date: 1950 Sex: F Assigned Patient Location: [place] Current Patient Location: Accession/Order Number: [id number] Exam Date: 07/25/2025 13:08 Report Date: 07/26/2025 13:44 At the request of: KRZYSZTOF THOMPSON MD Procedure: US pelvis Pelvic ultrasound. HISTORY: Pelvic pain. Hysterectomy. Possible oophorectomy. Ovaries not seen. No adnexal mass. No free fluid. Transvaginal imaging refused. US/US pelvis IMPRESSION: No adnexal mass or free fluid. Hysterectomy. Ovaries not visualized. Question of oophorectomy Impression dictated by: Elian Luna M.D. 07/26/2025 1:44 PM Dictation Location: [place] [address] Electronically authenticated by: [id number] Y Date: 07/26/2025 13:44
--- NOTE | 2025-07-25 13:06 | US_ITS ---
The [address] [address] Patient Name: EDIN SAMANIEGO MRN: [id number] date: 1950 Sex: F Assigned Patient Location: US Current Patient Location: Accession/Order Number: [id number] Exam Date: 07/25/2025 13:20 Report Date: 07/26/2025 13:42 At the request of: KRZYSZTOF [place] MD Procedure: US right upper quadrant Right upper quadrant ultrasound HISTORY: Right upper quadrant pain. Nodular liver contour with coarsened echotexture. No hepatic mass. No intrahepatic biliary ductal dilatation. No common bile duct dilatation. Negative ultrasound Montgomery's sign. 3 mm gallbladder wall thickening. Echogenic focus in the fundal region consistent with a gallstone. The pancreas unremarkable. Right kidney unremarkable. No hydronephrosis. Adequate blood flow patent portal vein. US/US right upper quadrant IMPRESSION: Cholelithiasis with borderline gallbladder wall thickening. Consider cholecystitis. No biliary duct dilatation. Liver cirrhosis Impression dictated by: Elian Luna M.D. 07/26/2025 1:42 PM Dictation Location: [place] [address] Electronically authenticated by: [id number] Y Date: 07/26/2025 13:42
--- OUTSIDE RECORDS SUMMARY | 2025-07-25 13:06 | XMS_ITS | CCD ---
Author Organization [facility] Care Team Providers Care Breeding Manager Name Role Phone PHYSICIAN, DEFAULT Admitting [...] Unavailable HOY ., DR BLANKENSHIP Admitting Unavailable [place], DR GODWIN Cardona Consulting Unavailable HOY ., [...] BLANKENSHIP Admmilton Unavailable HOY ., DR BLANKENSHIP Admmitlon Unavailable HOY ., DR BLANKENSHIP Attending Unavailable [...] HOY ., DR BLANKENSHIP Primary Care Unavailable DONNA ., DR BLANKENSHIP Admitting Unavailable ZIANNAER, DR DANIEL Erazo Consulting Unavailable LEONEL ., APRIL Consulting Unavailable LEONEL ., APRIL Admitting Unavailable LEONEL ., APRIL Attending Unavailable DONNA ., DR BLANKENSHIP Primary Care Unavailable HOY ., DR BLANKENSHIP Admitting Unavailable HOAnastsaia ., DR BLANKENSHIP Consulting Unavailable JASONY ., DR BLANKENSHIP Attending Unavailable JASONY ., DR BLANKENSHIP Primary Care Unavailable MD Ben Sanchez Attending Provider [phone] MD Krzysztof Thompson Primary Care Provider [phone] Krzysztof Thompson MD Primary Care Provider [phone] Raven Sesay DO Unavailable [phone] KRZYSZTOF THOMPSON Primary Care Unavailable FREEMAN WARD Attending Unavailab le KRZYSZTOF THOMPSON Referring Unavailable KRZYSZTOF THOMPSON Primary Care Unavailable NIDIA WHITE Admitting Unavailable NIDIA WHITE Attending Unavailable KRZYSZTOF [...] MD Attending UnavailRickie Feliciano MD Attending Provider Krzysztof Thompson MD Attending Provider [phone] Hoy, Krzysztof M Primary Care Unavailable Vasyl Chicas Admitting Unavailable Vasyl Chicas Attending Unavailable FelterRickie Attending Unavailable Hoy, Krzysztof M Primary Care Unavailable Rickie Saucedo Admitting Unavailable Rickie Saucedo Attending Unavailable Hoy, Krzysztof M Primary Care Unavailable FeltRickie jones Admitting Unavailable Hoy, Krzysztof M Admitting Unavailable Hoy, Krzysztof M Attending Unavailable MACDONALD, KAITLIN A Attending Unavailable HOY, KRZYSZTOF M Referring Unavailable HOY, KRZYSZTOF M Primary Care Unavailable MACDONALD, KAITLIN A Attending Unavailable HOY, KRZYSZTOF M Referring Unavailable HOY, KRZYSZTOF M Primary Care Unavailable MACDONALD, KAITLIN A Attending Unavailable HOY, KRZYSZTOF M Referring Unavailable HOY, KRZYSZTOF M Primary Care Unavailable Allergies Allergy ClassificationReported Allergen(s)Allergy TypeDate of OnsetReaction(s) Facility (17 sources)Morphine; Translations: [MORPHINE]Drug Qhqjwoc90-85-6348OprszhbpNue [facility] Repository (7 sources)NSAIDs; Translations: [NSAIDS (NON-STEROIDAL ANTI-INFLAMMATORY DRUG)] Drug allergy (disorder)25-79-7397HB BleedingThe [facility] (1 source)PenicillinDrug Yigrppb62-74-4663Csm [facility] Repository (1 source)predniSONEDrug Bxfbkwh96-44-1045Tkk [facility] Repository (2 sources)Iodinated Contrast- Oral and IV DyeDrug allergy (disorder)11-11-2014 [facility] Repository (20 sources)Penicillins; Translations: [PENICILLINS]Propensity to adverse reactions to drug (disorder)49-58-1925ZcerDpcxjbeckdBarberton [facility] (20 sources)IODINATED CONTRAST MEDIA; Translations: [IODINATED CONTRAST MEDIA] Propensity to adverse reactions to drug (disorder)47-18-7820Ojhcwvxzcba, Other (See Comments)[facility] Repository (1 source)levoFLOXacinDrug Xlhwiim86-09-9171Tuq [facility] Repository (1 source)meloxicamDrug Qarukhz00-96-1358Hrn [facility] Repository (12 sources)NSAIDS (Non-Steroidal Anti-Inflamma; Translations: [NSAIDS (Non- Steroidal Anti-Inflamma]Propensity to adverse gmalrsfvr15-31-9056VkbrkmaBerger HospitalComment on above:pt has stomach ulcer (20 sources)MorphineDrug Inebgok30-22-9943Berjem And Vomiting, VomitingNOMS Healthcare (10 sources)Non-steroidal anti-inflammatory agentPropensity to adverse reactions 22-92-1983Khtd, GI BleedingNOMS Healthcare (9 sources)Contrast media; Translations: [DYE]Propensity to adverse reactions to drug (disorder)39-39-4369JubdqmhjUanArhnfy Repository (9 sources)MORPHOLINE ANALOGUES; Translations: [MORPHOLINE ANALOGUES]Propensity to adverse reactions to drug (disorder)47-71-8587AozkqrmyZoxDoixbh Repository (3 sources)Non-steroidal anti-inflammatory agentPropensity to adverse reactions to tkrs04-20-8295VV [facility]edingK[facility] (1 source)MorphineDrug Ohzarbp33-29-9173BecerkvdwBrown [facility] Rep[facility] Medications Current Medications MedicationDrug Class(es)DatesSig (Normalized)Sig (Original)acetaminophen 500 mg oral tablet (20 sources)take 1 tablet by mouth every six hours as needed for pain acetaminophen (TYLENOL) 500 mg tablet Take 1 tablet (500 mg total) by mouth every 6 (six) hours as needed for pain. Activeaspirin 81 mg delayed release oral tablet (20 sources)Platelet Aggregation Inhibitor, Nonsteroidal Anti-inflammatory Drug Start: 66-54-2270bshv 1 tablet by mouth in the morningaspirin 81 mg Take 1 tablet (81 mg total) by mouth in the morning. 02/19/2024 Activeclopidogrel 75 mg oral tablet (20 sources)P2Y12 Platelet InhibitorStart: 89-02-0925wkwj 1 tablet by mouth in the morningclopidogreL (PLAVIX) 75 mg tablet Take 1 tablet (75 mg total) by mouth in the morning. 01/28/2024 MvylwjZwrhlavtrrk-Iljmecmfb-Rkxlaels (8 sources)Start: 93-22-0756Eradepgkwic-Umeclidin-Vilanter (Trelegy Ellipta) 200-62.5-25 mcg blister with device Active 1 INH INHALATION Daily February 19, 2025 12:00am Complies with drug therapyStart: 30-44-5925msjkiypmtc 100 mg oral capsule (2 sources)Anti-epileptic AgentStart: 08-11-2024 End: 19-30-8664wrqk 1 capsule by mouth in the morninggabapentin (Neurontin) 100 MG capsule Indications: Left hand pain Take 1 capsule (100 mg) by mouth in the morning and 1 capsule (100 mg) before bedtime. 60 capsule 2 08/11/2024 11/09/2024 Activemetoprolol tartrate 50 mg oral tablet (20 sources)beta-Adrenergic BlockerStart: 21-74-4078rkvw 1 tablet by mouth in the morningmetoprolol tartrate (LOPRESSOR) 50 mg tablet Take 1 tablet (50 mg total) by mouth in the morning. 03/27/2024 ActiveStart: 23-25-7485rhzyscgtao tartrate (Lopressor) 25 MG tablet 03/27/2024 Activepantoprazole 40 mg delayed release oral tablet (20 sources)Proton Pump InhibitorStart: 01-28-2024 End: 90-19-1488ltoyks calcitonin 200 unt/actuat nasal spray (16 sources)CalcitoninStart: 06-17-2024 End: 95-23-9042irsb 1 spray(s) nasal route in the morningcalcitonin, salmon, (MIACALCIN) 200 unit/actuation nasal spray Administer 1 spray into alternating n ostrils in the morning. 07/15/2024 08/14/2024 Activesucralfate 1000 mg oral tablet (20 sources)Aluminum ComplexStart: 33-20-9022zsiu 1 tablet by mouth four times dailysucralfate (Carafate) 1 g tablet TAKE 1 TABLET BY MOUTH ON AN EMPTY STOMACH FOUR TIMES DAILY 03/18/2024 ActiveStart: 80-82-8694irmh 1 tablet by mouth twice dailyStart: 01-28-2024 End: 37-93-5944kpdh 1 tablet by mouth four times dailySucralfate 1 gram tablet Discontinued 1 GM PO Four times daily January 28, 2024 12:00am February 19, 2024 9:15amtiZANidine 2 mg oral capsule (8 sources)Central alpha-2 Adrenergic AgonistStart: 48-19-7934zfeg 1 capsule by mouth twice daily as needed Completed/Discontinued Medications MedicationDrug Class(es)DatesSig (Normalized)Sig (Original)atorvastatin 20 mg oral tablet (20 sources)HMG-CoA Reductase InhibitorStart: 01-28-2024 End: 04-74-7978trrx 1 tablet by mouth once daily at bedtimeAtorvastatin 20 mg tablet Discontinued 20 MG PO Daily at bedtime January 28, 2024 12:00am February 19, 2025 2:58pm End: 94-67-8162kdyu 1 tablet by mouth in the morningatorvastatin (LIPITOR) 40 mg tablet Take 1 tablet (40 mg total) by mouth in the morning. 12/25/2024 Discontinued (Discontinued by another clinician)cetirizine hydrochloride 10 mg oral tablet (11 sources)Histamine-1 Receptor AntagonistStart: 01-28-2024 End: 98-74-5259hjtt 1 tablet by mouth once daily in the morningCetirizine 10 mg tablet Discontinued 10 MG PO Every morning January 28, 2024 12:00am February 19, 2024 9:13am1 ml denosumab 60 mg/ml prefilled syringe (1 source)RANK Ligand Inhibitor End: 38-22-8823hmefxo 60 mg by subcutaneous injection oncedenosumab (PROLIA) 60 mg/mL syringe injection Inject 60 mg under the skin once. 07/16/2024 Discontin ued (Discontinued by another clinician)lactulose 667 mg/ml oral solution (20 sources)Osmotic LaxativeStart: 02-19-2024 End: 53-22-8559pkxn 1 mL by mouth twice dailyLactulose 10 gram/15 mL solution Discontinued 30 ML PO Twice daily 1800 30 February 19, 2024 9:26am August 12, 2024 12:13pmStart: 01-28-2024 End: 25-84-6606otvw 1 mL by mouth once daily in the morningLactulose 10 gram/15 mL solution Discontinued 15 ML PO Every morning January 28, 2024 12:00am February 9:15amlidocaine 0.05 mg/mg medicated patch (1 source)Antiarrhythmic, Amide Local AnestheticStart: 06-13-2024 End: 80-70-2333srajx 1 dose transdermal route once daily, then apply 1 dose transdermal route every twelve hourslidocaine (LIDODERM) 5 % Indications: Left hip pain Place 1 patch on the skin daily. Remove & Discard patch within 12 hours or as directed by 30 patch 06/13/2024 07/16/2024 Discontinued (Patient Never Started This Medication)linaclotide 0.145 mg oral capsule (16 sources)Guanylate Cyclase-C AgonistStart: 08-13-2024 End: 11-93-0956imeb 1 capsule by mouth once dailyLinaclotide (Linzess) 145 mcg capsule Discontinued 145 MCG PO Daily August 13, 2024 1:00amJun2024 2:58pmStart: 08-12-2024 End: 34-41-0683xvce 1 capsule by mouth once dailyLinaclotide (Linzess) 72 mcg capsule Discontinued 72 MCG PO Daily August 12, 2024 1:00am August 13, 2024 5:40pmrosuvastatin calcium 20 mg oral tablet (1 source)HMG-CoA Reductase Inhibitor End: 42-38-4578itvy 1 tablet by mouth in the morningrosuvastatin (CRESTOR) 20 mg tablet Take 1 tablet (20 mg total) by mouth in the morning. 07/16/2024 Discontinued (Discontinued by another clinician)Sod Picosulf-Mag Ox-Citric Ac (10 sources)Start: 02-19-2024 End: 79-28-2231xidp 1 dose by mouth once daily in the eveningSod Picosulf-Mag Ox-Citric Ac (Clenpiq) 10 mg-3.5 gram- 12 gram/175 mL solution Discontinued 175 MLPO Daily 175 February 19, 2024 12:00am August 12, 2024 12:12pm take first dose at 3:00 pm the day before colonoscopy, take second dose at 9:00 pm the day before colonoscopy.Start: 71-43-4409kwwu 1 dose by mouth once daily in [...] abdominal pain; Translations: [GENERALIZED ABDOMINAL PAIN] Onset: 18-71-0785ItppujfxYhwvv and unspecified renal failure (1 source)Acute kidney failure, unspecified; Translations: [ACUTE KIDNEY FAILURE UNSPECIFIED]Onset: 32-89-8596XwiymzzgAhzuw cerebrovascular disease (3 sources)Cerebral infarction, unspecified; Translations: [Cerebral infarction due to unspecified occlusion or stenosis of left carotid arteries]Onset: 60-20-6276GfkcvdiUnjthyob reactions (1 source)Radiographic dye allergy status; Translations: [RADIOGRAPHIC DYE ALLERGY STATUS]Onset: 62-14-9905TdsdbdbiXvdcjuzj of urinary tract (1 source)Personal history of urinary calculi; Translations: [PERSONAL HISTORY OF URINARY CALCULI]Onset: 45-33-1841KqljfzsfKmysqui kidney disease (1 source)Chronic kidney disease, unspecified; Translations: [CHRONIC KIDNEY DISEASE UNSPECIFIED]Onset: 40-54-4275EidithqAolbjhg obstructive pulmonary disease and bronchiectasis (4 sources)Chronic obstructive pulmonary disease, unspecified; Translations: [COPD UNSPECIFIED]Onset: 17-15-6858ZbubbyhTtfevjoktr heart failure; nonhypertensive (20 sources)Unspecified diastolic (congestive) heart failure; Translations: [Acute combined systolic (congestive) and diastolic (congestive) heart failure] Onset: 44-67-5292JyvesawLpygbmek atherosclerosis and other heart disease (15 sources)Coronary atherosclerosis; Translations: [Atherosclerotic heart disease of [place] coronary artery without angina pectoris]Onset: 02-11-2010 08-51-3315TmabajtAsvbhhteiy and other anemia (1 source)Anemia, unspecified; Translations: [ANEMIA UNSPECIFIED]Onset: 00-41-4310XpylzvkyZybedtesyu and other anemia (1 source)Iron deficiency anemia, unspecified; Translations: [IRON DEFICIENCY ANEMIA UNSPECIFIED]Onset: 86-74-5948OunqqyrmGtuxmjeq mellitus without complication (16 sources)Type 2 diabetes mellitus without complications; Translations: [Diabetes mellitus without complication]Onset: 220451-81-8605Tbbfzhy Diabetes mellitus without complication (2 sources)Prediabetes; Translations: [Other abnormal glucose]Onset: 11-14-2022 EpisodicDisorders of lipid metabolism (17 sources)Pure hypercholesterolemia, unspecified; Translations: [Hyperlipidemia, unspecified]Onset: 996425-65-4975RkhggqiManghiazjqhfaq and diverticulitis (20 sources)Diverticulum of duodenum; Translations: [Diverticulosis of small intestine without perforation or abscess without bleeding]Onset: 09-12-2018 17-31-5368KjbdtzbUcslvsjksq disorders (20 sources)Gastro-esophageal reflux disease without esophagitis; Translations: [Gastroesophageal reflux disease]Onset: 346368-42-9800KudrddfFwxzcilzr hypertension (6 sources)Essential (primary) hypertension; Translations: [ESSENTIAL (PRIMARY) HYPERTENSION]Onset: 83-27-5013RgawaxnQhhwc and electrolyte disorders (2 sources)Dehydration; Translations: [Hyperkalemia]Onset: 00-96-2729Esefmvce Gastroduodenal ulcer (except hemorrhage) (6 sources)Gastric ulcer; Translations: [Gastric ulcer, unspecified as acute or chronic, without hemorrhage orperforation]05-39-8151VruixjsUahqiwkmrvlfm symptoms and ill-defined conditions (1 source)Personal history of urinary (tract) infections; Translations: [PERS HX URINARY TRACT INFECTIONS]Onset: 10-45-0930CzauibjyGpzwr valve disorders (1 source)Rheumatic tricuspid insufficiency; Translations: [RHEUMATIC TRICUSPID INSUFFICIENCY]Onset: 90-39-0143WunakixXorsshylrqht with complications and secondary hypertension (5 sources)Hypertensive heart disease with heart failure; Translations: [Hypertensive chronic kidney disease with stage 1 through stage 4 chronic kidney disease, or unspecified chronic kidney disease]Onset: 42-57-3525Lysvuka Intestinal obstruction without hernia (3 sources)Stricture of intestine; Translations: [Other intestinal obstruction unspecified as to partial versus complete obstruction]Onset: 06-23-2025 24-69-1106OwkmmuppQjdll disorders and dislocations; trauma-related (15 sources)Derangement of right knee; Translations: [Unspecified internal derangement of right knee]Onset: 112827-53-6692VivrbnsLhqkarw and fatigue (1 source)Chronic fatigue, unspecified; Translations: [CHRONIC FATIGUE UNSPECIFIED]Onset: 13-39-1149JoumvmzNdpsjdo and fatigue (4 sources)Other fatigue; Translations: [OTHER FATIGUE]Onset: 39-42-9679Tgcmnysx Nonspecific chest pain (5 sources)Chest pain, unspecified; Translations: [CHEST PAIN UNSPECIFIED]Onset: 66-95-0660HcrrexhzXbbacbbqgvn deficiencies (1 source)Vitamin D deficiency, unspecified; Translations: [VITAMIN D DEFICIENCY UNSPECIFIED]Onset: 24-44-6920JpdezrqGmnwxmbsl or stenosis of precerebral arteries (5 sources)Occlusion and stenosis of unspecified carotid artery; Translations: [Occlusion and stenosis of bilateral carotid arteries]Onset: 80-35-8346Pccosob Osteoarthritis (18 sources)Unspecified osteoarthritis, unspecified site; Translations: [Osteoarthritis of left knee joint]Onset: hronic Osteoporosis (20 sources)Age-related osteoporosis without current pathological fracture; Translations: [Osteoporosis]Onset: 644712-15-8549HuetjkcXspvt acquired deformities (20 sources)Lumbar spondylolisthesis; Translations: [Spondylolisthesis, lumbar region]99-93-9571CvvzxiwwPjwqq aftercare (2 sources)correction (current) use of aspirin; Translations: [ACID RECOVERY OPERATOR (CURRENT) USE OF ASPIRIN]Onset: 10-67-4897YlqcgcoyEmrio aftercare (1 source)Other mcc (current) drug therapy; Translations: [OTH MCFP CURRENT DRUG THERAPY]Onset: 37-96-9698WsmydkkkRwtto circulatory disease (1 source)Personal history of transient ischemic attack (TIA), and cerebral infarction without residual deficits; Translations: [PERS HX TIA AND CI NO RESID DEFICIT]Onset: 32-40-4840FurlfqgvEuefg connective tissue disease (4 sources)Pain in left foot; Translations: [PAIN IN LEFT FOOT]Onset: 01-15-2023 EpisodicOther connective tissue disease (1 source)Other specified soft tissue disorders; Translations: [OTHER SPEC SOFT TISSUE DISORDERS]Onset: 79-48-5597ZdiusuneTicfn connective tissue disease (1 source)Fibromyalgia; Translations: [FIBROMYALGIA]Onset: 24-49-5170Olmcjygt Other connective tissue disease (2 sources)Pain of left hand; Translations: [Pain in left hand]08-11-2024 EpisodicOther connective tissue disease (20 sources)Muscle pain; Translations: [Myalgia, unspecified site]03-11-2025 EpisodicOther fractures (4 sources)Fracture of multiple pubic rami; Translations: [Other specified fracture of right pubis, initial encounter for closed fracture]06-17-2024 EpisodicOther gastrointestinal disorders (10 sources)Irritable bowel syndrome; Translations: [Irritable bowel syndrome without diarrhea]68-99-2086DdmrlqtKmvru gastrointestinal disorders (2 sources)Irritable bowel syndrome without diarrhea; Translations: [Irritable bowel syndrome]62-88-5211TmfkydyBrhsa gastrointestinal disorders (8 sources)Irritable bowel syndrome characterized by constipation; Translations: [Irritable bowel syndrome with constipation]68-92-2106JkhgzsoFsgpu gastrointestinal disorders (2 sources)Incontinence of feces; Translations: [Full incontinence of feces] 80-79-2394DohdcfaoAgvzm gastrointestinal disorders (1 source)Full incontinence of feces; Translations: [Full incontinence of feces] Onset: 15-46-3427DrbbihltTqwtg gastrointestinal disorders (1 source)EncopresisOnset: 11-45-3444WowhwrkaYjcmp hematologic conditions (4 sources)Other specified abnormalities of plasma proteins; Translations: [OTH SPEC ABNORM PLASMA PROTEINS]Onset: 98-11-6497AgeemqtbFrrsg hereditary and degenerative nervous system conditions (1 source)Restless legs syndrome; Translations: [RESTLESS LEGS SYNDROME]Onset: 01-56-6380YdemgizAhuku lower respiratory disease (6 sources)Shortness of breath; Translations: [SHORTNESS OF BREATH]Onset: 67-35-5362NktturueDwxrx lower respiratory disease (3 sources)Dyspnea, unspecified; Translations: [Dyspnea, unspecified]Onset: 06-66-6515FpxftcqgGtyag lower respiratory disease (1 source)Personal history of pneumonia (recurrent); Translations: [PERSONAL HX OF PNEUMONIA RECURRENT]Onset: 91-54-4423LomjzjizYkkye nervous system disorders (3 sources)Aphasia; Translations: [APHASIA]Onset: 62-56-9297NeradodKrdix nervous system disorders (15 sources)Disorder of autonomic nervous system; Translations: [Disorder of the autonomic nervous system, unspecified]Onset: 821527-68-3367TliubznZvxoz nervous system disorders (20 sources)Chronic pain; Translations: [Other chronic pain]25-93-5364Sojqedu Other nervous system disorders (1 source)Ataxia, unspecified; Translations: [ATAXIA UNSPECIFIED]Onset: 17-14-6854RmuxddsyPyiss nervous system disorders (3 sources)Paresthesia; Translations: [Paresthesia of skin]25-12-2050Hjugqzoo Other non-traumatic joint disorders (1 source)Pain in left ankle and joints of left foot; Translations: [PAIN IN LEFT ANKLE]Onset: 00-39-6729MebcxekrWnetr non-traumatic joint disorders (7 sources)Hip pain; Translations: [Pain in right hip]Onset: 06-13-2024 10-17-6502BlybgsmeXutej non-traumatic joint disorders (1 source)Pain in left hip; Translations: [Pain in left hip]Onset: 06-13-2024 EpisodicOther non-traumatic joint disorders (13 sources)Pain in right shoulder; Translations: [Right shoulder pain]Onset: 909308-19-2187MenojfayQcmbv screening for suspected conditions (not mental disorders or infectious disease) (18 sources)Abnormal result of other cardiovascular function study; Translations: [Other specified abnormal findings of blood chemistry]Onset: 498114-45-8821QwkfnawrYdalc skin disorders (4 sources)Nonscarring hair loss, unspecified; Translations: [NONSCARRING HAIR LOSS UNSPECIFIED]Onset: 02-98-6588HctqlydhYudvn upper respiratory infections (1 source)Acute sinusitis, unspecified; Translations: [ACUTE SINUSITIS UNSPECIFIED]Onset: 86-28-8949AwxeyduaFkybjfxzzk disorders (not diabetes) (20 sources)Other chronic pancreatitis; Translations: [Chronic pancreatitis] Onset: 180869-91-4178KkvlbpcGbuxscjtdzaf fracture (4 sources)Stress fracture of sacrum; Translations: [Pathological fracture, other site, initial encounter for fracture]22-10-5520HmozsyllLllvlfxj codes; unclassified (1 source)Acquired absence of both cervix and uterus; Translations: [ACQUIRED ABSENCE BOTH CERVIX AND UTERUS]Onset: 60-88-7355UbyghtpnIqfprjqd codes; unclassified (1 source)Personal history of other specified conditions; Translations: [PERSONAL HISTORY OTH SPEC CONDITION]Onset: 00-33-5075TaicnshcRavrqbzp codes; unclassified (5 sources)Edema, unspecified; Translations: [EDEMA UNSPECIFIED]Onset: 06-59-9668ZyccdhqbDcfiucyf codes; unclassified (6 sources)Postmenopausal state; Translations: [Asymptomatic menopausal state] 24-42-7342YmkpiusoGeoyoyvxzwg; intervertebral disc disorders; other back problems (20 sources)Degeneration of lumbar intervertebral disc; Translations: [Degeneration of lumbar intervertebral disc]Onset: hronic Spondylosis; intervertebral disc disorders; other back problems (20 sources)Cervical radiculopathy; Translations: [Radiculopathy, cervical region]Onset: 694792-17-1568SulsmhocQnhntfcqgqvb (2 sources)ABN STRESSOnset: 18-65-3872Vcmwvdekipjs (1 source)CHRN KIDNEY DISEASE STG 3 UNSP; Translations: [CHRN KIDNEY DISEASE STG 3 UNSP]Onset: 16-62-0707Slitcdlujdfh (1 source)CONTACT W/AND (SUSP) EXPOS COVID-19; Translations: [CONTACT W/AND (SUSP) EXPOS COVID-19]Onset: 04-06-0331Zlfvmkzfmcms (1 source)COUGH, UNSPECIFIED; Translations: [COUGH, UNSPECIFIED]Onset: 67-41-9517Xhesacqvffzg (1 source)PERSONAL HISTORY OF COVID-19; Translations: [PERSONAL HISTORY OF COVID-19]Onset: 18-08-5729Vehzyaaksijd (1 source)PAIN RT HIPOnset: 28-02-4191Kqhrvibbgvgn (1 source)M54.6 - Pain in thoracic spineUnclassified (4 sources)R93.7 - Abnormal findings on diagnostic imaging of other parts of musculoskeletal systemViral infection (1 source)COVID-19; Translations: [COVID-19]Onset: 09-30-2022 Past or Other Problems Problem ClassificationProblemDateDocumented DateEpisodic/ChronicAbdominal hernia (16 sources)Diaphragmatic hernia without obstruction or gangrene; Translations: [Hiatal hernia]Onset: 568623-35-4548DsknjiqmTmtlsvtceinjje ulcer (except hemorrhage) (2 sources)H/O: gastric ulcer; Translations: [Personal history of peptic ulcer disease]Onset: 883196-08-8179GwetbekcXevtbwzmmfacngii hemorrhage (10 sources)Gastrointestinal hemorrhage; Translations: [Hemorrhage of anus and rectum]Onset: 515814-12-9325AsfxnmcfWvrqlw and vomiting (2 sources)Vomiting; Translations: [Vomiting, unspecified]Onset: 07-16-2024 88-13-6831BjgnpsmfMoyfp bone disease and musculoskeletal deformities (15 sources)Costal chondritis; Translations: [Chondrocostal junction syndrome [Tietze]]Onset: 001206-65-2873RlemgivmDhxir gastrointestinal disorders (4 sources)Constipation, unspecified; Translations: [CONSTIPATION UNSPECIFIED] Onset: 41-03-8122HubxsfnzQshyw gastrointestinal disorders (1 source)Dysphagia; Translations: [Dysphagia, unspecified]69-26-1337Rcvgneds Other gastrointestinal disorders (1 source)Dysphagia, unspecified; Translations: [Dysphagia, unspecified]Onset: 98-62-5202UwaulddfSnmrd gastrointestinal disorders (1 source)HeartburnOnset: 90-87-3181CebtyynqYpqnl nervous system disorders (4 sources)Dysarthria and anarthria; Translations: [DYSARTHRIA AND ANARTHRIA] Onset: 75-86-7856Cjtulrbn Results Test NameValueInterpretationReference RangeFacilityUrine Cultureon 05-13-2025 Bacteria identified Cx Nom (U)ORGANISM: Escherichia coli (O:ESCCOL) [place] Count 75,000 Aerobic RAIZA Charge (NMIC56) SUSCEPTIBILITY [...] RESISTANT TO ALL B-LACTAM DRUGS. PERFORMED BY: [facility] [address] [place] [address] PATHOLOGIST COUPLER ARMINDA JUAN M.D.[facility] Physician GroupComment on above: Performed By: #### CUU #### [facility] [address] [place] [address] USAX-ray reportOrdered By: Elian Luna on 71-70-5696Kipwy reportCOMMUNITY MEMORIAL HOSPITAL [facility] [place] [facility] [address] [place] [address] XRay Report Signed Patient: Sheila Mac MR#: [id number] : 1950 Acct:[id number] Age/Sex: 74 / F ADM Date: 5 Loc: [facility] Room: Type: [facility] [address] Attending Dr: Rickie Saucedo MD Copies to: [...] 6:13 PM Dictation Location: RADIO-PC-20 Transcribed By: [facility] 04/02/251812 Dictated By: Elian Luna DO 04/02/251811 Signed By: 04/02/251812 [facility] min 2V*on 77-46-8361AS shoulder RT min 2V*[facility] [place] [facility] [address] [place] [address] XRay Report Signed Patient: Sheila Mac MR#: [id number] 1859 : 1950 Acct:[id number] Age/Sex: 74 / F ADM Date: 04/02/25 Loc: SOXD Room: Type: REG CLI Attending Dr: Rickie [...] 6:13 PM Dictation Location: RADIO-PC-20 Transcribed By: [facility] 04/02/251812 Dictated By: Elian Luna DO 04/02/251811 Signed By: 04/02/[address] [place] [address] Physician GroupX-ray reportOrdered By: Ling Fields on [id number] reportCOMMUNITY MEMORIAL [facility]PITAL [facility] [place] [facility] [address] [place] [address] XRay Report Signed Patient: Sheila Mac MR#: [id number] : 1950 Acct:[id number] Age/Sex: 74 / F ADM Date: 5 [facility]: [facility] Room: Type: REG CLI Attending Dr: Rickie Saucedo MD Copies to: Rickie Saucedo MD~ Ordering Provider: Rickie aSucedo MD Date of Service: 03/11/25 XR/XR thoracic [...] Fields M.D. 03/11/2025 12:01 PM Dictation Location: [place] [address] Transcribed By: [facility] 03/11/25 1201 Dictated By: Ling Fields MD 03/11/25 1158 Signed By: 03/11/25 1201 [facility] Work Phone: XR thoracic spine 2Von 91-21-4007PD thoracic spine 2V [facility] [place] [facility] [address] [place] [address] XRay Report Signed Patient: Sheila Mac MR#: [id number] 1859 : 1950 Acct:[id number] Age/Sex: 74 / F ADM Date: 03/11/25 Loc: [facility] Room: Type: [facility] Attending Dr: Rickie Saucedo MD Copies to: [...] Fields M.D. 03/11/2025 12:01 PM Dictation Location: [facility]-02 Transcribed By: [facility] 03/11/25 1201 Dictated By: Ling Fields MD 03/11/25 1158 Signed By: 03/11/25 1201[facility] Physician GroupXR cerv spine AP/LAT/FLX/EXTon 01-27-4794SC cerv spine AP/LAT/FLX/EXTCOMMUNITY [facility]IAL [facility] [place] [address] [place] [address] XRay Report Signed Patient: Sheila Mac MR#: [id number] 1859 : 1950 Acct:[id number] Age/Sex: 74 / F ADM Date: 02/26/25 Loc: [place] Room: Type: [facility] Attending Dr: Vasyl Chicas MD Copies to: [...] Luna M.D. 02/26/2025 12:52 PM Dictation Location: [facility]-23 Transcribed By: LAVON 02/26/25 1252 Dictated By: Elian Luna DO 02/26/25 1249 Signed By: 02/26/25 1252[facility] Physician GroupXR lumbar spine 6V w bendingon 78-92-7894CF lumbar spine 6V w bendingCOMMUNITY MEMORIAL HOSPITAL [facility] [place] [address] [place] [address] XRay Report Signed Patient: Sheila Mac MR#: [id number] 1859 : 1950 Acct:[id number] Age/Sex: 74 / F ADM Date: 02/26/25 Loc: [place] Room: Type: [facility] Attending Dr: Vasyl Chicas MD Copies to: [...] Luna M.D. 02/26/2025 2:14 PM Dictation Location: [place] [address] Transcribed By: LAVON 02/26/25 1414 Dictated By: Elian Luna DO 02/26/25 1411 Signed By: 02/26/25 1414[facility] Physician GroupSurgical Pathologyon 07-28-2024 Surgical PathologyNormalMercy Memorial Hospitalca Kaiser Foundation HospitalComment on above:Result Comment: [facility] [address] [place] [address] Surgical Pathology Consultation Patient Name:SHEILA MAC ADOB:1950 (Age: 74)Gender:FTaken:07/28/2024eported:07/31/2024hysician(s):Nidia White MD ([phone])Copy To: Rec. #:[id number]: #[id number] Final Pathologic Diagnosis 1. Duodenum biopsy first portion: Duodenal mucosa with no significant histopathologic changes. No active inflammation, celiac disease, parasites, granuloma or atypia. 2. Antrum biopsy: Gastric antral mucosa with no significant histopathologic changes. No intestinal metaplasia or dysplasia. No Helicobacter pylori organisms are seen on routine sections. Report Electronically Signed Out wak/07/31/2024Rodriguez Vargas MD Interpret[place] [address], License number: [id number]. Clinical History Vomiting, gastroesophageal reflux, dysphagia Gross Description 1. Received in formalin labeled ASLINGER, #1: Duodenum is a single hathaway bit of soft tissue, 0.2 cmin greatest dimension. Filtered and submitted in a single cassette. (1, ns, [id number], m7) MG 2. Received in formalin labeled ASLINGER, #2: Antrum is a single hathaway bit of soft tissue, 0.3 cm in greatest dimension. Filtered and submitted in a single cassette. (1, ns, [id number], m7) MG [facility]/07/28/2024GR Specimen(s) Received 1: Duodenum biopsy first portion 2: Antrum biopsy Fee Codes(s): 1; 44813 2; 77868SHS 1 Extremeityon 83-89-8390Y8 radiculopathy on the left, moderateResearch Belton Hospital HealthcareNVC 5-6 Nerveson 66-76-5613W6 radiculopathy on the left, moderateResearch Belton Hospital HealthcareXR HIP LT 2-3 VIEWS W OR WO PELVISon 83-98-8535UB HIP LT 2-3 VIEWS W OR WO [...] by Rod Muller MD on 06/13/2024 10:24 [facility]XR SP[facility] LUMBAR 2 OR 3 VWSon 90-22-0358ML SPINE LUMBAR 2 OR 3 VWSXR SPINE [...] by Rickie Gonzales MD on 06/13/2024 10:20 [facility] HospitalMR HIP RIGHT WO IV CONTRASTon 82-77-7066LM HIP RIGHT WO IV CONTRASTEXAM: MR HIP [...] x-rays of the right hip Hemal Sheth D.O.[facility] HealthcareRadiology Study observation (narrative)[facility] HealthcareColonoscopyOrdered By: Kera George on 03-26-2024 [facility] SouthwoodsUS AYESHA DOP LEG LTon 09-98-3777SU AYESHA DOP LEG LT EXAMINATION: US AYESHA [...] Electronically authenticated by: DANIEL PINEDA Date: 2023-01-15 08:25[facility] SystemXR ANKLE LT MIN 3 Von 60-90-1213XH ANKLE LT MIN 3 VEXAM: XR FOOT [...] Electronically authenticated by: GONZALEZ PATEL Date: 2023-01-15 07:[address] [place], [place] [address]VITAMIN B1 (THIAMINE)on 85-10-0042Azl. B1, Whole Cbcuz394.1 nmol/LVmzsfb45.5-200.0The [facility] HospitalComment on above:Performed By: #### CBC #### [facility] [address] [place] [address] Dr. Ekta Vaughan 17-43-5382Rkcxwsronbn peptide B (Bld) [Mass/Vol]980.0 pg/mL Critically high<=900.0The [facility] HospitalComment on above:Performed By: #### CVDTBH #### [facility] [address] [place] [address] Dr. Ekta Agarwal AUTO DIFFon 61-84-3333KTWJ #0.1 103/ulNormal0.0-0.1[facility] Regional HospitalComment on above:Performed By: #### CMP #### [facility] [address] [place] [address] Dr. Ekta FunkBasophils/100 WBC (Bld)1.0 %Normal0.2-2.0The [facility] Comment on above:Performed By: #### CMP #### [facility] [address] [place] [address] Dr. Ekta Anthony #0.4 103/ulNormal0.0-0.7The [facility] HospitalComment on above: Performed By: #### CMP #### [facility] [address] [place] [address] Dr. Ekta Abebeosinophils/100 WBC (Bld)3.7 %Normal0.9-7.0[facility] Comment on above:Performed By: #### CMP #### [facility] [address] [place] [address] Dr. Ekta Abeberythrocyte distribution width (RBC) [Ratio]13.2 %Yldvfu14.0-15.0 [facility] HospitalComment on above:Performed By: #### CMP #### [facility] [address] [place] [address] Dr. Ekta FunkHematocrit (Bld) [Volume fraction]35.1 %Critically low36.0-48.0 [facility] HospitalComment on above:Performed By: #### CMP #### [facility] [address] [place] [address] Dr. Ekta FunkHemoglobin (Bld) [Mass/Vol]11.3 g/dLCritically low12.0-16.0The [facility] HospitalComment on above:Performed By: #### CMP #### [facility] [address] [place] [address] Dr. Ekta Olivares #0.04 10e3/ulCritically high0.00-0.03The [facility] Comment on above:Performed By: #### CMP #### [facility] [address] [place] [address] Dr. Ekta Olivares %0.4 %Normal0.0-0.5ThAkron Children's HospitalComment on above: Performed By: #### CMP #### [facility] [address] [place] [address] Dr. Ekta LundbergH #2.0 103/ulNormal1.2-3.8The [facility] HospitalComment on above:Performed By: #### CMP #### [facility] [address] [place] [address] Dr. Ekta Nettlesmphocytes/100 WBC (Bld)20.8 %Lqzwer36.5-60.0The [facility] HospitalComment on above:Performed By: #### CMP #### [facility] [address] [place] [address] Dr. Ekta Beckham DIFF REQNONormalThe [facility] HospitalComment on above: Performed By: #### CMP #### [facility] [address] [place] [address] Dr. Ekta Oconnor (RBC) [Entitic mass]32.3 mlOztsyx80.7-34.0The [facility] HospitalComment on above:Performed By: #### CMP #### [facility] [address] [place] [address] Dr. Ekta Oconnor (RBC) [Mass/Vol]32.2 g/xQIopboo40.9-35.2The [facility] HospitalComment on above:Performed By: #### CMP #### [facility] [address] [place] [address] Dr. Ekta Estevez (RBC) [Entitic vol]100.3 fLCritically high81.0-99.0The [facility] HospitalComment on above:Performed By: #### CMP #### [facility] [address] [place] [address] Dr. Ekta Rivas #0.8 103/ulNormal0.3-0.8The [facility] HospitalComment on above:Performed By: #### CMP #### [facility] [address] [place] [address] Dr. Ekta Perkinsocytes/100 WBC (Bld)7.9 %Normal1.7-12.0The [facility] Comment on above:Performed By: #### CMP #### [facility] [address] [place] [address] Dr. Ekta Salazar #6.4 103/ulNormal1.4-6.5The [facility] HospitalComment on above:Performed By: #### CMP #### [facility] [address] [place] [address] Dr. Ekta Dimasutrophils/100 WBC (Bld)66.2 %Dfvhch71.0-75.0The [facility] HospitalComment on above:Performed By: #### CMP #### [facility] [address] [place] [address] Dr. Ekta Trevino mean volume (Bld) [Entitic vol]9.6 fLNormal9.5-13.5The [facility] HospitalComment on above:Performed By: #### CMP #### [facility] [address] [place] [address] Dr. Ekta DriverT255 103/zzFnqdnu641-357Yee [facility] HospitalComment on above: Performed By: #### CMP #### [facility] [address] [place] [address] Dr. Ekta FunkRBC3.50 106/ulCritically low4.20-5.40The [facility] HospitalComment on above:Performed By: #### CMP #### [facility] [address] [place] [address] Dr. Ekta FunkWBC9.7 103/ulNormal4.0-11.0The [facility] HospitalComment on above: Performed By: #### CMP #### [facility] [address] [place] [address] Dr. Ekta Castaneda 36-42-4884KAZ [Mass/Vol]mg/LNormal<=1.0The [facility] HospitalComment on above:Performed By: #### CBC #### [facility] [address] [place] [address] Dr. Ekta Correa THYROXINE INDEX T7on 81-14-3361JGM5.87Owywba4.30-4.50The [facility] HospitalComment on above:Performed By: #### CBC #### [facility] [address] [place] [address] Dr. Ekta FunkT3U32.0 %Apsuhp62.0-39.0The [facility] HospitalComment on above: Performed By: #### CBC #### [facility] [address] [place] [address] Dr. Ekta FunkT4 [Mass/Vol]8.20 ug/dLNormal4.80-13.90The [facility] Comment on above:Performed By: #### CBC #### [facility] [address] [place] [address] Dr. Ekta Shannon 89-42-2464Bulj [Mass/Vol]61.0 ug/zLNqymwt73.0-170.0The [facility] HospitalComment on above:Performed By: #### B12FOL, VITAD, IRON #### [facility] [address] [place] [address] [address] Ekta CarrilloF 14(COMP METB)on 04-25-0057Ktcvflz [Mass/Vol]2.9 g/dL Critically low3.4-5.0The [facility] HospitalComment on above:Performed By: #### CVDTBH #### [facility] [address] [place] [address] [address] Ekta FunkAlbumin/Globulin [Mass ratio]0.6 {ratio}NormalThe [facility] HospitalComment on above:Performed By: #### CVDTBH #### [facility] [address] [place] [address] [address] Ekta Cowart [Catalytic activity/Vol]101 U/DRkrheo21-226Utj [facility] HospitalComment on above:Performed By: #### CVDTBH #### [facility] [address] [place] [address] [address] Ekta Mccormick [Catalytic activity/Vol]16 U/NDvppaj89-56Bsw [facility] HospitalComment on above:Performed By: #### CVDTBH #### [facility] [address] [place] [address] [address] Ekta Harrison gap [Moles/Vol]14.6 mmol/LNormalThe [facility] Comment on above:Performed By: #### CVDTBH #### [facility] [address] [place] [address] [address] Ekta Gonzalez [Catalytic activity/Vol]15 U/JAcssbz89-35Wpy [facility] HospitalComment on above:Performed By: #### CVDTBH #### [facility] [address] [place] [address] [address] Ekta FunkBilirubin [Mass/Vol]0.4 mg/dLNormal0.2-1.0The [facility] Comment on above:Performed By: #### CVDTBH #### [facility] [address] [place] [address] [address] Ekta FunkCalcium [Mass/Vol]9.2 mg/dLNormal8.5-10.1The [facility] Comment on above:Performed By: #### CVDTBH #### [facility] [address] [place] [address] [address] Ekta FunkChloride [Moles/Vol]107 mmol/YApmqmz51-197Jdr [facility] Comment on above:Performed By: #### CVDTBH #### [facility] [address] [place] [address] Dr. Ekta FunkCO2 [Moles/Vol]24.4 mmol/YJwufxp59.0-32.0The [facility] Comment on above:Performed By: #### CVDTBH #### [facility] [address] [place] [address] Dr. Ekta FunkCreatinine [Mass/Vol]2.02 mg/dLCritically high0.55-1.02The [facility] HospitalComment on above:Performed By: #### CVDTBH #### [facility] [address] [place] [address] Dr. Ekta AbebeGFR-AF EWRLNTGM17 mL/min/1.81x8Mhnyeznnop low>=60The [facility] HospitalComment on above:Performed By: #### CVDTBH #### [facility] [address] [place] [address] [address] Ekta Ro-NON AF GASUAOAS41 mL/min/1.26s9Pygdrearth low>=60The [facility] HospitalComment on above:Performed By: #### CVDTBH #### [facility] [address] [place] [address] Dr. Ekta FunkGlobulin (S) [Mass/Vol]4.5 g/dLNormalThe [facility] HospitalComment on above:Performed By: #### CVDTBH #### [facility] [address] [place] [address] Dr. Ekta FunkGlucose [Mass/Vol]103 mg/cACrtygn01-691EwvPromedica Defiance Regional Hospital Comment on above:Performed By: #### CVDTBH #### [facility] [address] [place] [address] Dr. Ekta FunkPotassium [Moles/Vol]5.0 mmol/LNormal3.5-5.1The [facility] Comment on above:Performed By: #### CVDTBH #### [facility] [address] [place] [address] Dr. Ekta FunkProtein [Mass/Vol]7.4 g/dLNormal6.4-8.2The [facility] Comment on above:Performed By: #### CVDTBH #### [facility] [address] [place] [address] Dr. Ekta Nolandium [Moles/Vol]141 mmol/SXinqvn907-860XjpPromedica Defiance Regional Hospital Comment on above:Performed By: #### CVDTBH #### [facility] [address] [place] [address] Dr. Ekta FunkUrea nitrogen [Mass/Vol]23.0 mg/dLCritically high7.0-18.0The [facility] HospitalComment on above:Performed By: #### CVDTBH #### [facility] [address] [place] [address] Dr. Ekta Spring nitrogen/Creatinine [Mass ratio]11.4 mg/mgNormalThe [facility] HospitalComment on above:Performed By: #### CVDTBH #### [facility] [address] [place] [address] Dr. Ekta DoanHorama 19-47-0086TTO7.793 uIU/mLNormal0.358-3.740[facility] HospitalComment on above:Performed By: #### CVDTBH #### [facility] [address] [place] [address] Dr. Ekta Lopez B12 AND FOLATEon 24-04-6735Vbmiheqoz (Vitamin B12) [Mass/Vol] 175.0 pg/mLCritically ftw808.0-986.0The [facility] HospitalComment on above: Performed By: #### B12FOL, VITAD, IRON #### [facility] [address] [place] [address] Dr. Ekta FunkFOLATE10.30 ng/mLNormal8.60-58.90[facility] HospitalComment on above:Performed By: #### B12FOL, VITAD, IRON #### [facility] [address] [place] [address] Dr. Ekta FunkVITAMIN D 25 OHon 39-73-6459ZCQ D 25-OH24.0 ng/mLNormalPromedica Defiance Regional HospitalComment on above:Performed By: #### B12FOL, VITAD, IRON #### [facility] [address] [place] [address] Dr. Ekta Lopez D [place] [facility] HospitalComment on above: Result Comment: <20 ng/mL Vit D deficient 20 - <30 ng/mL Vit D insufficient 30 - 100 ng/mL Vit D sufficient >100 ng/mL Potential ToxicityPerformed By: #### B12FOL, VITAD, IRON #### [facility] [address] [place] [address] Dr. Ekta Hope Visiton 69-64-8650Yozcqn-up [id number] Sheila Mac 1950 F Date Provider Department Center 12/15/2022 3848-FAWNJASONRODRIGUEZ MOHAN [facility] No family history on file Level of Service:70311 [place] OFFICE/OUTPATIENT ESTABLISHED MOD MDM 30-39 MIN Reason for Visit and Comments: Follow-up [426542] - Is here f/u stress test pt states she had Bruises all over both legs symptoms stated a week ago also stated legs are swollen and burningNormalUniversity of Houston Methodist [facility] HospitalNM STRESS/REST MULTIon 16-55-6963HH STRESS/REST MULTIPatient: SHEILA MAC Exam Date: 12/05/2022 : 1950 Gender:F Ordering : DR KRZYSZTOF THOMPSON . Admission #: [id number] Family : Order #: [id number] CLICK HERE TO VIEW EXAM RADIOLOGY REPORT [...] by: Daniel Pineda M.D. on 12/06/2022 at 07:26[facility] SystemECHOCARDIO M/2D COMPLETEon 71-95-6702UOZJSCXUOT M/2D COMPLETEPatient: SHEILA MAC Exam Date: 11/27/2022 : 1950 Gender:F Ordering : DR KRZYSZTOF THOMPSON . Admission #: [id number] Family : Order #: [id number] CLICK HERE TO VIEW EXAM ECHOCARDIOGRAM REPORT [...] by: Bong Gaspar M.D. on 11/27/2022 at 14:39NormalThCincinnati [facility] AUTO DIFFon 23-83-9256ERFZ #0.0 103/ulNormal0.0-0.1[facility] HospitalComment on above:Performed By: #### INSULIN #### [facility] [address] [place] [address] Dr. Ekta Thorntonsophils/100 WBC (Bld)0.6 %Normal0.2-2.0[facility] Comment on above:Performed By: #### INSULIN #### [facility] [address] [place] [address] Dr. Ekta Anthony #0.3 103/ulNormal0.0-0.7The [facility] HospitalComment on above: Performed By: #### INSULIN #### [facility] [address] [place] [address] Dr. Ekta Abebeosinophils/100 WBC (Bld)4.8 %Normal0.9-7.0[facility] Comment on above:Performed By: #### INSULIN #### [facility] [address] [place] [address] Dr. Ekta Abeberythrocyte distribution width (RBC) [Ratio]13.3 %Foudjn72.0-15.0 [facility] HospitalComment on above:Performed By: #### INSULIN #### [facility] [address] [place] [address] Dr. Ekta FunkHematocrit (Bld) [Volume fraction]29.1 %Critically low36.0-48.0 The [facility] HospitalComment on above:Performed By: #### INSULIN #### [facility] [address] [place] [address] Dr. Ekta FunkHemoglobin (Bld) [Mass/Vol]9.5 g/dLCritically low12.0-16.0The [facility] HospitalComment on above:Performed By: #### INSULIN #### [facility] [address] [place] [address] Dr. Ekta FunkIG #0.07 10e3/ulCritically high0.00-0.03The [facility] Comment on above:Performed By: #### INSULIN #### [facility] [address] [place] [address] Dr. Ekta FunkIG %1.0 %Critically high0.0-0.5The [facility] HospitalComment on above:Performed By: #### INSULIN #### [facility] [address] [place] [address] Dr. Ekta LundbergH #1.2 103/ulNormal1.2-3.8The [facility] HospitalComment on above:Performed By: #### INSULIN #### [facility] [address] [place] [address] Dr. Ekta Nettlesmphocytes/100 WBC (Bld)17.2 %Critically low20.5-60.0[facility] HospitalComment on above:Performed By: #### INSULIN #### [facility] [address] [place] [address] Dr. Ekta MaloneUAL DIFF REQNONormalThe [facility] HospitalComment on above: Performed By: #### INSULIN #### [facility] [address] [place] [address] Dr. Ekta Oconnor (RBC) [Entitic mass]31.7 kmEtfvys68.7-34.0The [facility] HospitalComment on above:Performed By: #### INSULIN #### [facility] [address] [place] [address] Dr. Ekta Oconnor (RBC) [Mass/Vol]32.6 g/lQWngttn15.9-35.2The [facility] HospitalComment on above:Performed By: #### INSULIN #### [facility] [address] [place] [address] Dr. Ekta Oconnor (RBC) [Entitic vol]97.0 kBRwuqmd85.0-99.0The [facility] HospitalComment on above:Performed By: #### INSULIN #### [facility] [address] [place] [address] Dr. Ekta Rivas #0.8 103/ulNormal0.3-0.8The [facility] HospitalComment on above:Performed By: #### INSULIN #### [facility] [address] [address] [address] Ekta Perkinsocytes/100 WBC (Bld)11.1 %Normal1.7-12.0The [facility] Comment on above:Performed By: #### INSULIN #### [facility] [address] [place] [address] Dr. Ekta DimasUT #4.5 103/ulNormal1.4-6.5The [facility] HospitalComment on above:Performed By: #### INSULIN #### [facility] [address] [place] [address] Dr. Ekta Dimasutrophils/100 WBC (Bld)65.3 %Fdgdfd05.0-75.0The [facility] HospitalComment on above:Performed By: #### INSULIN #### [facility] [address] [place] [address] Dr. Ekta Salomonlet mean volume (Bld) [Entitic vol]9.4 fLCritically low 9.5-13.5The [facility] HospitalComment on above:Performed By: #### INSULIN #### [facility] [address] [address] [address] Ekta FunkPLT263 103/siAszyzv396-070Umb [facility] HospitalComment on above: Performed By: #### INSULIN #### [facility] [address] [address] Dr. Ekta FunkRBC3.00 106/ulCritically low4.20-5.40The [facility] HospitalComment on above:Performed By: #### INSULIN #### [facility] [address] [place] [address] Dr. Ekta FunkWBC6.9 103/ulNormal4.0-11.0The [facility] HospitalComment on above: Performed By: #### INSULIN #### [facility] [address] [place] [address] Dr. Ekta CarrilloF 14(COMP METB)on [id number] [Mass/Vol]2.2 g/dL Critically low3.4-5.0The [facility] HospitalComment on above:Performed By: #### CMP #### [facility] [address] [place] [address] Dr. Ekta FunkAlbumin/Globulin [Mass ratio]0.6 {ratio}NormalThe [facility] HospitalComment on above:Performed By: #### CMP #### [facility] [address] [place] [address] Dr. Ekta Cowart [Catalytic activity/Vol]82 U/SCchqjh35-772Uga [facility] HospitalComment on above:Performed By: #### CMP #### [facility] [address] [place] [address] Dr. Ekta Mccormick [Catalytic activity/Vol]13 U/LCritically wfj01-16Aah [facility] HospitalComment on above:Performed By: #### CMP #### [facility] [address] [place] [address] Dr. Ekta Harrison gap [Moles/Vol]14.0 mmol/LNormalThe [facility] on above:Performed By: #### CMP #### [facility] [address] [address] [address] Ekta FunkAST [Catalytic activity/Vol]18 U/NTpmwtq23-21[facility] Hospitalment on above:Performed By: #### CMP #### [facility] [address] [address] [address] Ekta FunkBilirubin [Mass/Vol]0.4 mg/dLNormal0.2-1.0The [facility] Comment on above:Performed By: #### CMP #### [facility] [address] [address] [address] Ekta FunkCalcium [Mass/Vol]8.6 mg/dLNormal8.5-10.1The [facility] Comment on above:Performed By: #### CMP #### [facility] [address] [place] [address] Dr. Ekta FunkChloride [Moles/Vol]108 mmol/LCritically hkdy04-016Pyq [facility] HospitalComment on above:Performed By: #### CMP #### [facility] [address] [address] [address] Ekta FunkCO2 [Moles/Vol]19.6 mmol/LCritically low21.0-32.0The [facility] HospitalComment on above:Performed By: #### CMP #### [facility] [address] [place] [address] Dr. Ekta FunkCreatinine [Mass/Vol]1.70 mg/dLCritically high0.55-1.02The [facility] HospitalComment on above:Performed By: #### CMP #### [facility] [address] [address] [address] Ekta AbebeGFR-AF RZHUSPBO75 mL/min/1.67e1Xhmpzmwepw low>=60The [facility] HospitalComment on above:Performed By: #### CMP #### [facility] [address] [address] [address] Ekta AbebeGFR-NON AF IQWESRLT37 mL/min/1.80l1Pbqyoswojl low>=60The [facility] HospitalComment on above:Performed By: #### CMP #### [facility] [address] [address] [address] Ekta FunkGlobulin (S) [Mass/Vol]3.6 g/dLNormalThAkron Children's HospitalComment on above:Performed By: #### CMP #### [facility] [address] [address] [address] Ekta FunkGlucose [Mass/Vol]103 mg/zFHknfku64-430Ldy [facility] Comment on above:Performed By: #### CMP #### [facility] [address] [address] [address] Ekta FunkPotassium [Moles/Vol]4.6 mmol/LNormal3.5-5.1The [facility] Comment on above:Performed By: #### CMP #### [facility] [address] [place] [address] Dr. Ekta FunkProtein [Mass/Vol]5.8 g/dLCritically low6.4-8.2The [facility] HospitalComment on above:Performed By: #### CMP #### [facility] [address] [address] [address] Ekta FunkSodium [Moles/Vol]137 mmol/UOydrga370-147GbnPromedica [facility] Comment on above:Performed By: #### CMP #### [facility] [address] [address] [address] Ekta FunkUrea nitrogen [Mass/Vol]26.0 mg/dLCritically high7.0-18.0The [facility] HospitalComment on above:Performed By: #### CMP #### [facility] [address] [address] [address] Ekta Spring nitrogen/Creatinine [Mass ratio]15.3 mg/mgNormalThe [facility] HospitalComment on above:Performed By: #### CMP #### [facility] [address] [place] [address] Dr. Ekta CaalC AUTO DIFFon [id number] #0.1 103/ulNormal0.0-0.1The [facility] HospitalComment on above:Performed By: #### CBC #### [facility] [address] [address] [address] Ekta FunkBasophils/100 WBC (Bld)0.7 %Normal0.2-2.0[facility] Comment on above:Performed By: #### CBC #### [facility] [address] [place] [address] Dr. Ekta Anthony #0.3 103/ulNormal0.0-0.7The [facility] HospitalComment on above: Performed By: #### CBC #### [facility] [address] [place] [address] Dr. Ekta Abebeosinophils/100 WBC (Bld)3.4 %Normal0.9-7.0[facility] Comment on above:Performed By: #### CBC #### [facility] [address] [place] [address] Dr. Ekta Abeberythrocyte distribution width (RBC) [Ratio]13.6 %Jjuinn17.0-15.0 [facility] HospitalComment on above:Performed By: #### CBC #### [facility] [address] [place] [address] Dr. Ekta FunkHematocrit (Bld) [Volume fraction]32.1 %Critically low36.0-48.0 The [facility] HospitalComment on above:Performed By: #### CBC #### [facility] [address] [place] [address] Dr. Ekta FunkHemoglobin (Bld) [Mass/Vol]10.3 g/dLCritically low12.0-16.0[facility] HospitalComment on above:Performed By: #### CBC #### [facility] [address] [place] [address] Dr. Ekta Olivares #0.08 10e3/ulCritically high0.00-0.03[facility] Comment on above:Performed By: #### CBC #### [facility] [address] [place] [address] Dr. Ekta Olivares %0.9 %Critically high0.0-0.5The [facility] HospitalComment on above:Performed By: #### CBC #### [facility] [address] [place] [address] Dr. Ekta Putnam #0.9 103/ulCritically low1.2-3.8The [facility] Comment on above:Performed By: #### CBC #### [facility] [address] [place] [address] Dr. Ekta Lundberghocytes/100 WBC (Bld)10.7 %Critically low20.5-60.0The [facility] HospitalComment on above:Performed By: #### CBC #### [facility] [address] [place] [address] Dr. Ekta Beckham DIFF REQNONormalThe [facility] HospitalComment on above: Performed By: #### CBC #### [facility] [address] [place] [address] Dr. Ekta Frye (RBC) [Entitic mass]32.2 bjZyqmok42.7-34.0[facility] HospitalComment on above:Performed By: #### CBC #### [facility] [address] [place] [address] Dr. Ekta Oconnor (RBC) [Mass/Vol]32.1 g/yRVtemju05.9-35.2The [facility] HospitalComment on above:Performed By: #### CBC #### [facility] [address] [place] [address] Dr. Ekta Estevez (RBC) [Entitic vol]100.3 fLCritically high81.0-99.0[facility] HospitalComment on above:Performed By: #### CBC #### [facility] [address] [place] [address] Dr. Ekta Rivas #0.9 103/ulCritically high0.3-0.8The [facility] Comment on above:Performed By: #### CBC #### [facility] [address] [place] [address] Dr. Yilan ChangMonocytes/100 WBC (Bld)9.9 %Normal1.7-12.0The [facility] Comment on above:Performed By: #### CBC #### [facility] [address] [place] [address] Dr. Ekta Salazar #6.4 103/ulNormal1.4-6.5The [facility] HospitalComment on above:Performed By: #### CBC #### [facility] [address] [place] [address] Dr. Ekta Dimasutrophils/100 WBC (Bld)74.4 %Tgudej25.0-75.0The [facility] HospitalComment on above:Performed By: #### CBC #### [facility] [address] [place] [address] Dr. Ekta Salomonlet mean volume (Bld) [Entitic vol]9.5 fLNormal9.5-13.5The [facility] HospitalComment on above:Performed By: #### CBC #### [facility] [address] [place] [address] Dr. Ekta DriverT267 103/vdUtfdsk893-245Zfu [facility] HospitalComment on above: Performed By: #### CBC #### [facility] [address] [place] [address] Dr. Ekta FunkRBC3.20 106/ulCritically low4.20-5.40The [facility] HospitalComment on above:Performed By: #### CBC #### [facility] [address] [place] [address] Dr. Ekta FunkWBC8.6 103/ulNormal4.0-11.0The [facility] HospitalComment on above: Performed By: #### CBC #### [facility] [address] [place] [address] Dr. Ekta ThorntonSO #0.1 103/ulNormal0.0-0.1The [facility] HospitalComment on above:Performed By: #### CMP #### [facility] [address] [place] [address] Dr. Ekta Thorntonsophils/100 WBC (Bld)0.7 %Normal0.2-2.0The [facility] Comment on above:Performed By: #### CMP #### [facility] [address] [place] [address] Dr. Ekta Anthony #0.3 103/ulNormal0.0-0.7The [facility] HospitalComment on above: Performed By: #### CMP #### [facility] [address] [place] [address] Dr. Ekta Abebeosinophils/100 WBC (Bld)3.9 %Normal0.9-7.0The [facility] Comment on above:Performed By: #### CMP #### [facility] [address] [place] [address] Dr. Ekta Abeberythrocyte distribution width (RBC) [Ratio]13.2 %Rsvxwa31.0-15.0 [facility] HospitalComment on above:Performed By: #### CMP #### [facility] [address] [place] [address] Dr. Ekta FunkHematocrit (Bld) [Volume fraction]28.0 %Critically low36.0-48.0 [facility] HospitalComment on above:Performed By: #### CMP #### [facility] [address] [place] [address] Dr. Ekta FunkHemoglobin (Bld) [Mass/Vol]9.3 g/dLCritically low12.0-16.0The [facility] HospitalComment on above:Performed By: #### CMP #### [facility] [address] [place] [address] Dr. Ekta Olivares #0.08 10e3/ulCritically high0.00-0.03The [facility] Comment on above:Performed By: #### CMP #### [facility] [address] [place] [address] Dr. Ekta Olivares %1.1 %Critically high0.0-0.5The [facility] HospitalComment on above:Performed By: #### CMP #### [facility] [address] [place] [address] Dr. Ekta Putnam #0.9 103/ulCritically low1.2-3.8The [facility] Comment on above:Performed By: #### CMP #### [facility] [address] [place] [address] Dr. Ekta Lundberghocytes/100 WBC (Bld)12.1 %Critically low20.5-60.0The [facility] HospitalComment on above:Performed By: #### CMP #### [facility] [address] [place] [address] Dr. Ekta Beckham DIFF REQNONormalThe [facility] HospitalComment on above: Performed By: #### CMP #### [facility] [address] [place] [address] Dr. Ekta Oconnor (RBC) [Entitic mass]32.0 ixBshgqi48.7-34.0The [facility] HospitalComment on above:Performed By: #### CMP #### [facility] [address] [place] [address] Dr. Ekta Oconnor (RBC) [Mass/Vol]33.2 g/rIOaretu68.9-35.2The [facility] HospitalComment on above:Performed By: #### CMP #### [facility] [address] [place] [address] Dr. Ekta Oconnor (RBC) [Entitic vol]96.2 bDHajzdh62.0-99.0The [facility] HospitalComment on above:Performed By: #### CMP #### [facility] [address] [place] [address] Dr. Ekta Rivas #0.7 103/ulNormal0.3-0.8The [facility] HospitalComment on above:Performed By: #### CMP #### [facility] [address] [place] [address] Dr. Ekta Perkinsocytes/100 WBC (Bld)9.8 %Normal1.7-12.0The [facility] Comment on above:Performed By: #### CMP #### [facility] [address] [place] [address] Dr. Ekta DimasUT #5.2 103/ulNormal1.4-6.5The [facility] HospitalComment on above:Performed By: #### CMP #### [facility] [address] [place] [address] Dr. Ekta Dimasutrophils/100 WBC (Bld)72.4 %Jpepos64.0-75.0The [facility] HospitalComment on above:Performed By: #### CMP #### [facility] [address] [place] [address] Dr. Ekta FunkPlatelet mean volume (Bld) [Entitic vol]9.4 fLCritically low 9.5-13.5The [facility] HospitalComc.[facility] on above:Performed By: #### CMP #### [facility] [address] [place] [address] Dr. Ekta FunkPLT250 103/ieGztzua867-091Xxp [facility] on above: Performed By: #### CMP #### [facility] [address] [place] [address] Dr. Ekta FunkRBC2.91 106/ulCritically low4.20-5.40The [facility] on above:Performed By: #### CMP #### [facility] [address] [place] [address] Dr. Ekta FunkWBC7.2 103/ulNormal4.0-11.0The [facility] HospitalComc.[facility] on above: Performed By: #### CMP #### [facility] [address] [place] [address] Dr. Ekta FunkPROF 14(COMP METB)on [id number] [Mass/Vol]2.1 g/dL Critically low3.4-5.0The [facility] on above:Performed By: #### CMP #### [facility] [address] [place] [address] Dr. Ekta FunkAlbumin/Globulin [Mass ratio]0.6 {ratio}NormalThe [facility] HospitalComc.[facility] on above:Performed By: #### CMP #### [facility] [address] [address] [address] Ekta Cowart [Catalytic activity/Vol]68 U/HFdntcu47-271Vvf [facility] HospitalComment on above:Performed By: #### CMP #### [facility] [address] [address] [address] Ekta AlcantaraT [Catalytic activity/Vol]14 U/CNsyhze36-24Kdf [facility] HospitalComment on above:Performed By: #### CMP #### [facility] [address] [address] [address] Ekta Mcleodon gap [Moles/Vol]12.9 mmol/LNormalThe [facility] Comment on above:Performed By: #### CMP #### [facility] [address] [place] [address] Dr. Ekta FunkAST [Catalytic activity/Vol]14 U/LCritically ujh70-98Qgw [facility] HospitalComment on above:Performed By: #### CMP #### [facility] [address] [place] [address] Dr. Ekta FunkBilirubin [Mass/Vol]0.3 mg/dLNormal0.2-1.0The [facility] Comment on above:Performed By: #### CMP #### [facility] [address] [place] [address] Dr. Ekta FunkCalcium [Mass/Vol]8.3 mg/dLCritically low8.5-10.1The [facility] HospitalComment on above:Performed By: #### CMP #### [facility] [address] [place] [address] Dr. Ekta FunkChloride [Moles/Vol]109 mmol/LCritically vjeu12-788Qyg [facility] HospitalComment on above:Performed By: #### CMP #### [facility] [address] [address] [address] Ekta FunkCO2 [Moles/Vol]19.3 mmol/LCritically low21.0-32.0The [facility] HospitalComment on above:Performed By: #### CMP #### [facility] [address] [address] [address] Ekta FunkCreatinine [Mass/Vol]1.54 mg/dLCritically high0.55-1.02The [facility] Hospitalment on above:Performed By: #### CMP #### [facility] [address] [address] [address] Dash ChangEGFR-AF YJKXBVXF47 mL/min/1.66h4Peiintqmfh low>=60The [facility] HospitalComment on above:Performed By: #### CMP #### [facility] [address] [address] [address] Ekta AbebeGFR-NON AF VDCISDMP72 mL/min/1.50a3Lplimbhrzc low>=60The [facility] HospitalComment on above:Performed By: #### CMP #### [facility] [address] [address] [address] Ekta FunkGlobulin (S) [Mass/Vol]3.7 g/dLNormalThe [facility] HospitalComment on above:Performed By: #### CMP #### [facility] [address] [address] [address] Ekta FunkGlucose [Mass/Vol]117 mg/dLCritically nvzf40-197Deg [facility] HospitalComment on above:Performed By: #### CMP #### [facility] [address] [address] [address] Ekta FunkPotassium [Moles/Vol]4.2 mmol/LNormal3.5-5.1The [facility] Comment on above:Performed By: #### CMP #### [facility] [address] [address] [address] Ekta FunkProtein [Mass/Vol]5.8 g/dLCritically low6.4-8.2The [facility] HospitalComc.[facility] on above:Performed By: #### CMP #### [facility] [address] [address] [address] Ekta FunkSodium [Moles/Vol]137 mmol/VMgnlcu778-824Kup [facility] Comment on above:Performed By: #### CMP #### [facility] [address] [place] [address] Dr. Ekta Spring nitrogen [Mass/Vol]27.0 mg/dLCritically high7.0-18.0The [facility] HospitalComment on above:Performed By: #### CMP #### [facility] [address] [place] [address] Dr. Ekta Spring nitrogen/Creatinine [Mass ratio]17.5 mg/mgNormalThe [facility] HospitalComment on above:Performed By: #### CMP #### [facility] [address] [place] [address] Dr. Ekta FunkAMMONIAon [id number] (P) [Moles/Vol]13 umol/TDgrmxk73-34 The [facility] HospitalComment on above:Performed By: #### CVDTBH #### [facility] [address] [place] [address] Dr. Ekta Agarwal AUTO DIFFon [id number] #0.0 103/ulNormal0.0-0.1The [facility] HospitalComment on above:Performed By: #### CMP #### [facility] [address] [place] [address] Dr. Ekta FunkBasophils/100 WBC (Bld)0.4 %Normal0.2-2.0[facility] Comment on above:Performed By: #### CMP #### [facility] [address] [place] [address] Dr. Ekta Anthony #0.4 103/ulNormal0.0-0.7The [facility] on above: Performed By: #### CMP #### [facility] [address] [place] [address] Dr. Ekta Abebeosinophils/100 WBC (Bld)3.8 %Normal0.9-7.0The [facility] Comment on above:Performed By: #### CMP #### [facility] [address] [place] [address] Dr. Ekta Abeberythrocyte distribution width (RBC) [Ratio]13.2 %Bkznnp32.0-15.0 [facility] HospitalComment on above:Performed By: #### CMP #### [facility] [address] [place] [address] Dr. Ekta FunkHematocrit (Bld) [Volume fraction]34.0 %Critically low36.0-48.0 The [facility] HospitalComment on above:Performed By: #### CMP #### [facility] [address] [place] [address] Dr. Ekta FunkHemoglobin (Bld) [Mass/Vol]11.5 g/dLCritically low12.0-16.0The [facility] HospitalComment on above:Performed By: #### CMP #### [facility] [address] [place] [address] Dr. Ekta FunkIG #0.11 10e3/ulCritically high0.00-0.03The [facility] Comment on above:Performed By: #### CMP #### [facility] [address] [place] [address] Dr. Ekta Olivares %1.2 %Critically high0.0-0.5The [facility] HospitalComment on above:Performed By: #### CMP #### [facility] [address] [place] [address] Dr. Ekta Putnam #1.4 103/ulNormal1.2-3.8The [facility] HospitalComment on above:Performed By: #### CMP #### [facility] [address] [place] [address] Dr. Ekta Lundberghocytes/100 WBC (Bld)14.9 %Critically low20.5-60.0[facility] HospitalComment on above:Performed By: #### CMP #### [facility] [address] [place] [address] Dr. Ekta MaloneUAL DIFF REQNONormalThe [facility] HospitalComment on above: Performed By: #### CMP #### [facility] [address] [place] [address] Dr. Ekta Frye (RBC) [Entitic mass]32.5 gjEtmnko37.7-34.0The [facility] HospitalComment on above:Performed By: #### CMP #### [facility] [address] [place] [address] Dr. Ekta Oconnor (RBC) [Mass/Vol]33.8 g/aVMazbmh41.9-35.2The [facility] HospitalComment on above:Performed By: #### CMP #### [facility] [address] [place] [address] Dr. Ekta Estevez (RBC) [Entitic vol]96.0 zBQhboka15.0-99.0The [facility] HospitalComment on above:Performed By: #### CMP #### [facility] [address] [place] [address] Dr. Ekta Rivas #0.9 103/ulCritically high0.3-0.8The [facility] Comment on above:Performed By: #### CMP #### [facility] [address] [place] [address] Dr. Ekta Perkinsocytes/100 WBC (Bld)9.7 %Normal1.7-12.0The [facility] Comment on above:Performed By: #### CMP #### [facility] [address] [place] [address] Dr. Ekta Salazar #6.4 103/ulNormal1.4-6.5The [facility] HospitalComment on above:Performed By: #### CMP #### [facility] [address] [place] [address] Dr. Ekta Dimasutrophils/100 WBC (Bld)70.0 %Ayfjvf93.0-75.0The [facility] HospitalComment on above:Performed By: #### CMP #### [facility] [address] [place] [address] Dr. Ekta Trevino mean volume (Bld) [Entitic vol]9.3 fLCritically low 9.5-13.5The [facility] HospitalComment on above:Performed By: #### CMP #### [facility] [address] [place] [address] Dr. Ekta FunkPLT308 103/zdKyplfs453-707Mgu [facility] HospitalComment on above: Performed By: #### CMP #### [facility] [address] [place] [address] Dr. Ekta FunkRBC3.54 106/ulCritically low4.20-5.40The [facility] HospitalComment on above:Performed By: #### CMP #### [facility] [address] [place] [address] Dr. Ekta FunkWBC9.1 103/ulNormal4.0-11.0The [facility] HospitalComment on above: Performed By: #### CMP #### [facility] [address] [place] [address] Dr. Ekta FunkCPKorama [id number] [Catalytic activity/Vol]21 U/LCritically low 26-192The [facility] HospitalComment on above:Performed By: #### B12FOL, VITAD, IRON #### [facility] [address] [place] [address] Dr. Ekta FuknCT STROKE HEAD WOon [id number] STROKE HEAD WOEXAMINATION: CT STROKE HEAD WO [...] authenticated by: VANESSA PARADA Date: 2022-11-24 11:09 NormalThe [facility] HEAD WO W CONon [id number] HEAD WO W CON EXAMINATION: CTA HEAD [...] further evaluation. IMPRESSION: Electronically authenticated by: DANIEL TORRESAYLA Date: 2022-11-24 12:41NormalThe [facility] HospitalCULTURE URINEon [id number] URINECulture Observations: NO GROWTH.NormalThe [facility] HospitalComment on above:Performed By: #### INSULIN #### [facility] [address] [address] [address] Ekta FunkCovid-19 PCR (CVDTB)on [id number]-CoV-2 (COVID-19) RNA GANESH+probe Ql (Unsp spec)Not detectedNormalNOT DETECTEDPromedica Defiance Regional Hospital Comment on above:Result Comment: When diagnostic [...] for this test is supported by the [employer] M[employer] of Health and Human Service's declaration that [...] used).Performed By: #### CVDTBH #### [facility] [address] [place] [address] Dr. Ekta Mckeon URINE PROFILEon [id number] Ql (U)NegativeNormal NEGATIVEThe [facility] HospitalComment on above:Performed By: #### CBC #### [facility] [address] [address] [address] Ekta FunkClarity (U)CLEARNormalCLEARThe [facility] HospitalComment on above: Performed By: #### CBC #### [facility] [address] [address] [address] Ekta Boothe (U)LT. YELLOWNormalYELLOWPromedica Defiance Regional HospitalComment on above:Performed By: #### CBC #### [facility] [address] [address] [address] Ekta Chan micrscopic examination will be performed if indicated. NormalThe [facility] HospitalComment on above:Performed By: #### CBC #### [facility] [address] [address] [address] Ekta FunkGlucose Ql (U)NegativeNormalNEGATIVEPromedica Defiance Regional HospitalComment on above:Performed By: #### CBC #### [facility] [address] [place] [address] Dr. Ekta FunkHemoglobin Ql (U)NegativeNormalNEGATIVESumma Health [facility] on above:Performed By: #### CBC #### [facility] [address] [address] [address] Ekta FunkKetones Ql (U)NegativeNormalNEGATIVEPromedica Defiance Regional HospitalComment on above:Performed By: #### CBC #### [facility] [address] [place] [address] Dr. Ekta FunkLEUKOCYTESNegativeNormalNEGATIVEPromedica Defiance Regional HospitalComment on above:Performed By: #### CBC #### [facility] [address] [address] [address] Ekta FunkNitrite Ql (U)NegativeNormalNEGATIVEPromedica Defiance Regional HospitalComment on above:Performed By: #### CBC #### [facility] [address] [address] [address] Ekta FunkpH (U)5.5 [pH]Normal5-9Prom[facility] Defiance Regional HospitalComment on above: Performed By: #### CBC #### [facility] [address] [place] [address] Dr. Ekta FunkSPEC GRAVITY1.862Ildfho7.005-<=1.025The [facility]olis HospitalComment on above:Performed By: #### CBC #### [facility] [address] [address] [address] Ekta Camejo PROTEINNegativeNormalNEGATIVE/ TRACEThe [facility] Comment on above:Performed By: #### CBC #### [facility] [address] [address] [address] Ekta Villarreal MICRO INDNOT INDICATEDNoMartin Memorial HospitalComment on above:Performed By: #### CBC #### [facility] [address] [place] [address] Dr. Ekta FunkUrobilinogen Qn (U)0.2 {Ivan'U}/dLNormal0.2 - 1.0The [facility] HospitalComment on above:Performed By: #### CBC #### [facility] [address] [place] [address] Dr. Ekta FunkGLYCOHEMOGLOBIN A1Con [id number] RECOMMENDATIONSEE BELOWNormal The [facility] HospitalComment on above:Result Comment: ADA RECOMMENDED LIMIT 4.0 - 6.0 ADA THERAPEUTIC TARGET < 7.0 ACTION SUGGESTED > 7.0Performed By: #### B12FOL, VITAD, IRON #### [facility] [address] [place] [address] Dr. Ekta FunkGlucose [Mass/Vol]143 mg/dLBlanchard Valley Health SystemComment on above:Performed By: #### B12FOL, VITAD, IRON #### [facility] [address] [place] [address] Dr. Ekta FunkHbA1c (Bld) [Mass fraction]6.6 %Critically high4.5-6.2The [facility] HospitalComment on above:Performed By: #### B12FOL, VITAD, IRON #### [facility] [address] [place] [address] Dr. Ekta FunkLACTATE/LACTIC ACIDon 88-98-1376Tteseky [Moles/Vol]1.6 mmol/L Normal0.4-2.0The [facility] HospitalComment on above:Performed By: #### CMP #### [facility] [address] [address] [address] Ekta FunkLactate [Moles/Vol]2.1 mmol/LCritically high0.4-2.0The [facility] on above:Performed By: #### B12FOL, VITAD, IRON #### [facility] [address] [place] [address] Dr. Ekta FunkLIPASEon [id number] [Catalytic activity/Vol]165.0 U/LNormal 73.0-393.0[facility] on above:Performed By: #### B12FOL, VITAD, IRON #### [facility] [address] [place] [address] Dr. Ekta EncinasID PROFILEon [id number]-HDL RATIO NORMSEE [facility] HospitalComc.[facility] on above:Result Comment: 3.3 - 4.4 LOW RISK 4.4 - 7.1 AVERAGE RISK 7.1 - 11.0 MODERATE RISK >11.0 HIGH RISKPerformed By: #### B12FOL, VITAD, IRON #### [facility] [address] [place] [address] Dr. Ekta Tejedaesterol [Mass/Vol]248 mg/dLCritically high<=200The [facility] on above:Performed By: #### B12FOL, VITAD, IRON #### [facility] [address] [place] [address] Dr. Ekta FunkCholesterol in HDL [Mass/Vol]58 mg/hBRxsotu57-52Qom [facility] on above:Performed By: #### B12FOL, VITAD, IRON #### [facility] [address] [place] [address] Dr. Ekta Tejedaesterol in LDL [Mass/Vol]165.6 mg/dLAultman Orrville Hospital on above:Performed By: #### B12FOL, VITAD, IRON #### [facility] [address] [place] [address] Dr. Yilan ChangCholesterol.total/Cholesterol in HDL [Mass ratio]4.3 {ratio} NormalPromedica Defiance Regional HospitalComment on above:Performed By: #### B12FOL, VITAD, IRON #### [facility] [address] [place] [address] Dr. Ekta Uriarte NORMAL> or = 60 mg/dl - LOW CARDIOVASCULAR RISK <40 mg/dl - HIGH CARDIOVASCULAR RISKBlanchard Valley Health SystemComment on above:Performed By: #### B12FOL, VITAD, IRON #### [facility] [address] [place] [address] Dr. Ekta FunkLDL CALC NORMALSEE BELOWBlanchard Valley Health SystemComment on above:Result Comment: <100 mg/dl OPTIMAL 100 - 129 mg/dl NEAR OR ABOVE OPTIMAL 130 - 159 mg/dl BORDERLINE HIGH 160 - 189 mg/dl HIGH >190 mg/dl VERY HIGH Performed By: #### B12FOL, VITAD, IRON #### [facility] [address] [place] [address] Dr. Ekta FunkTriglyceride [Mass/Vol]122 mg/dLNormal<=150[facility] Comment on above:Performed By: #### B12FOL, VITAD, IRON #### [facility] [address] [place] [address] Dr. Ekta AnneLDL CALC24.4 mg/dLBlanchard Valley Health SystemComment on above: Performed By: #### B12FOL, VITAD, IRON #### [facility] [address] [place] [address] Dr. Ekta FunkLeonardo BRAIN WO CONon [id number] BRAIN WO CONI BRAIN WO CON 11/24/2022 [...] ELAINE Date: 2022-11-24 19:35Normal The [facility] HospitalPROF 14(COMP METB)on [id number] [Mass/Vol]2.7 g/dL Critically low3.4-5.0The [facility] HospitalComment on above:Performed By: #### B12FOL, VITAD, IRON #### [facility] [address] [address] [address] Ekta FunkAlbumin/Globulin [Mass ratio]0.6 {ratio}NormalThe [facility] HospitalComment on above:Performed By: #### B12FOL, VITAD, IRON #### [facility] [address] [address] [address] Ekta Cowart [Catalytic activity/Vol]85 U/OIvihpa58-454Csp [facility] HospitalComment on above:Performed By: #### B12FOL, VITAD, IRON #### [facility] [address] [address] [address] Ekta Mccormick [Catalytic activity/Vol]18 U/DLeuaus68-64Gki [facility] HospitalComment on above:Performed By: #### B12FOL, VITAD, IRON #### [facility] [address] [address] [address] Ekta Harrison gap [Moles/Vol]18.9 mmol/LNormalThe [facility] Comment on above:Performed By: #### B12FOL, VITAD, IRON #### [facility] [address] [address] [address] Ekta FunkAST [Catalytic activity/Vol]16 U/LZytlzf96-50Ttj [facility] HospitalComment on above:Performed By: #### B12FOL, VITAD, IRON #### [facility] [address] [place] [address] Dr. Ekta FunkBilirubin [Mass/Vol]0.4 mg/dLNormal0.2-1.0The [facility] Comment on above:Performed By: #### B12FOL, VITAD, IRON #### [facility] [address] [place] [address] Dr. Ekta FunkCalcium [Mass/Vol]9.5 mg/dLNormal8.5-10.1The [facility] Comment on above:Performed By: #### B12FOL, VITAD, IRON #### [facility] [address] [place] [address] Dr. Ekta FunkChloride [Moles/Vol]108 mmol/LCritically xvpu97-252Pse [facility] HospitalComment on above:Performed By: #### B12FOL, VITAD, IRON #### [facility] [address] [place] [address] Dr. Ekta FunkCO2 [Moles/Vol]21.1 mmol/WSqfstf79.0-32.0[facility] Comment on above:Performed By: #### B12FOL, VITAD, IRON #### [facility] [address] [place] [address] Dr. Ekta FunkCreatinine [Mass/Vol]2.08 mg/dLCritically high0.55-1.02The [facility] HospitalComment on above:Performed By: #### B12FOL, VITAD, IRON #### [facility] [address] [place] [address] Dr. Ekta AbebeGFR-AF ADVZLJHD24 mL/min/1.35x1Wtrgdgvabi low>=60The [facility] HospitalComment on above:Performed By: #### B12FOL, VITAD, IRON #### [facility] [address] [address] [address] Ekta AbebeGFR-NON AF IGKABPFA24 mL/min/1.41i0Zekqkgjdpc low>=60The [facility] HospitalComment on above:Performed By: #### B12FOL, VITAD, IRON #### [facility] [address] [address] [address] Ekta FunkGlobulin (S) [Mass/Vol]4.6 g/dLNormalThe [facility] HospitalComment on above:Performed By: #### B12FOL, VITAD, IRON #### [facility] [address] [address] [address] Ekta FunkGlucose [Mass/Vol]119 mg/dLCritically kqku43-981Psd [facility] HospitalComment on above:Performed By: #### B12FOL, VITAD, IRON #### [facility] [address] [place] [address] Dr. Ekta FunkPotassium [Moles/Vol]5.0 mmol/LNormal3.5-5.1The [facility] Comment on above:Performed By: #### B12FOL, VITAD, IRON #### [facility] [address] [address] [address] Ekta FunkProtein [Mass/Vol]7.3 g/dLNormal6.4-8.2[facility] Comment on above:Performed By: #### B12FOL, VITAD, IRON #### [facility] [address] [place] [address] Dr. Ekta FunkSodium [Moles/Vol]143 mmol/LIoosou899-850Tgj [facility] Comment on above:Performed By: #### B12FOL, VITAD, IRON #### [facility] [address] [place] [address] Dr. Ekta FunkUrea nitrogen [Mass/Vol]37.0 mg/dLCritically high7.0-18.0The [facility] HospitalComment on above:Performed By: #### B12FOL, VITAD, IRON #### [facility] [address] [place] [address] Dr. Ekta FunkUrea nitrogen/Creatinine [Mass ratio]17.8 mg/mgNoMartin Memorial HospitalComment on above:Performed By: #### B12FOL VITCAMI, IRON #### [facility] [address] [place] [address] Dr. Ekta Rich, HIGH SENSITIVITYon 65-72-5173HIFLFY56.1 pg/mLNormal 4.0-51.3The [facility] on above:Result Comment: CUT-OFF POINTS HAVE BEEN ESTABLISHED BASED ON THE FOURTH UNIVERSAL DEFINITIONS OF MYOCARDIAL INFARCTION. THE UPPER REFERENCE LIMIT (URL) OF TROPONIN, DEFINED THE 99TH PERCENTILE OF cTnI DISTRIBUTION IN A REFERENCE POPULATION, HAS BEEN CONFIRMED THE DECISION THRESHOLD FOR IN DIAGNOSIS.Performed By: #### B12FOLCAROLYN, IRON #### [facility] [address] [place] [address] Dr. Ekta Carmona 75-11-4360ZBC4.184 uIU/mLNormal0.358-3.740The [facility] on above:Performed By: #### B12FOL VITAD, IRON #### [facility] [address] [place] [address] Dr. Ekta FunkXR CHEST 1 Von [id number] CHEST 1 VEXAM: XR CHEST 1 V [...] Electronically authenticated by: NATALIIA TATE Date: 2022-11-24 11:00[facility] Health SystemBNPon [id number] peptide B (Bld) [Mass/Vol]565.0 pg/mLNormal<=900.0The [facility] on above:Performed By: #### INSULIN #### [facility] [address] [address] [address] Ekta Agarwal AUTO DIFFon [id number] #0.1 103/ulNormal0.0-0.1The [facility] HospitalComment on above:Performed By: #### CBC #### [facility] [address] [address] [address] Ekta FunkBasophils/100 WBC (Bld)0.6 %Normal0.2-2.0[facility] Comment on above:Performed By: #### CBC #### [facility] [address] [place] [address] Dr. Ekta Anthony #0.4 103/ulNormal0.0-0.7The [facility] HospitalComment on above: Performed By: #### CBC #### [facility] [address] [place] [address] Dr. Ekta Abebeosinophils/100 WBC (Bld)3.7 %Normal0.9-7.0The [facility] Comment on above:Performed By: #### CBC #### [facility] [address] [place] [address] Dr. Ekta Abeberythrocyte distribution width (RBC) [Ratio]13.2 %Vfayzl23.0-15.0 The [facility] HospitalComment on above:Performed By: #### CBC #### [facility] [address] [place] [address] Dr. Ekta FunkHematocrit (Bld) [Volume fraction]36.7 %Hznlzx37.0-48.0The [facility] HospitalComment on above:Performed By: #### CBC #### [facility] [address] [place] [address] Dr. Ekta FunkHemoglobin (Bld) [Mass/Vol]12.4 g/yAOypbma41.0-16.0The [facility] HospitalComment on above:Performed By: #### CBC #### [facility] [address] [place] [address] Dr. Ekta Olivares #0.10 10e3/ulCritically high0.00-0.03The [facility] Comment on above:Performed By: #### CBC #### [facility] [address] [place] [address] Dr. Ekta Olivares %1.0 %Critically high0.0-0.5The [facility] HospitalComment on above:Performed By: #### CBC #### [facility] [address] [address] [address] Ekta Putnam #1.5 103/ulNormal1.2-3.8The [facility] HospitalComment on above:Performed By: #### CBC #### [facility] [address] [place] [address] Dr. Ekta Lundberghocytes/100 WBC (Bld)14.9 %Critically low20.5-60.0The [facility] HospitalComment on above:Performed By: #### CBC #### [facility] [address] [place] [address] Dr. Ekta Beckham DIFF REQNONormalThe [facility] HospitalComment on above: Performed By: #### CBC #### [facility] [address] [place] [address] Dr. Ekta Frye (RBC) [Entitic mass]32.8 wxMiebqr28.7-34.0The [facility] HospitalComment on above:Performed By: #### CBC #### [facility] [address] [place] [address] Dr. Ekta Oconnor (RBC) [Mass/Vol]33.8 g/pRHdxkkh61.9-35.2The [facility] HospitalComment on above:Performed By: #### CBC #### [facility] [address] [place] [address] Dr. Ekta Oconnor (RBC) [Entitic vol]97.1 lTJzshsb01.0-99.0The [facility] HospitalComment on above:Performed By: #### CBC #### [facility] [address] [place] [address] Dr. Ekta Rivas #0.8 103/ulNormal0.3-0.8The [facility] HospitalComment on above:Performed By: #### CBC #### [facility] [address] [place] [address] Dr. Ekta Perkinsocytes/100 WBC (Bld)7.7 %Normal1.7-12.0The [facility] Comment on above:Performed By: #### CBC #### [facility] [address] [place] [address] Dr. Ekta Salazar #7.3 103/ulCritically high1.4-6.5The [facility] Comment on above:Performed By: #### CBC #### [facility] [address] [place] [address] Dr. Ekta Dimasutrophils/100 WBC (Bld)72.1 %Fbioyn02.0-75.0The [facility] HospitalComment on above:Performed By: #### CBC #### [facility] [address] [place] [address] Dr. Ekta Salomonlet mean volume (Bld) [Entitic vol]9.4 fLCritically low 9.5-13.5The [facility] HospitalComment on above:Performed By: #### CBC #### [facility] [address] [place] [address] Dr. Ekta DriverT251 103/jzLiqdve371-880Uce [facility] HospitalComment on above: Performed By: #### CBC #### [facility] [address] [place] [address] Dr. Ekta AllenC3.78 106/ulCritically low4.20-5.40The [facility] HospitalComment on above:Performed By: #### CBC #### [facility] [address] [place] [address] Dr. Ekta FunkWBC10.1 103/ulNormal4.0-11.0The [facility] HospitalComment on above:Performed By: #### CBC #### [facility] [address] [place] [address] Dr. Ekta Correa THYROXINE INDEX T7on 96-08-8216FQC0.95Bxphie2.30-4.50The [facility] HospitalComment on above:Performed By: #### INSULIN #### [facility] [address] [address] [address] Ekta FunkT3U35.0 %Sygnul28.0-39.0The [facility] HospitalComment on above: Performed By: #### INSULIN #### [facility] [address] [address] [address] Ekta FunkT4 [Mass/Vol]7.80 ug/dLNormal4.80-13.90The [facility] Comment on above:Performed By: #### INSULIN #### [facility] [address] [place] [address] Dr. Ekta FunkGLYCOHEMOGLOBIN A1Con 32-51-9149XOC RECOMMENDATIONSEE BELOWNormal The [facility] HospitalComment on above:Result Comment: ADA RECOMMENDED LIMIT 4.0 - 6.0 ADA THERAPEUTIC TARGET < 7.0 ACTION SUGGESTED > 7.0Performed By: #### B12FOL, VITAD, IRON #### [facility] [address] [place] [address] Dr. Ekta FunkGlucose [Mass/Vol]134 mg/dLNormalThe [facility] HospitalComment on above:Performed By: #### B12FOL, VITAD, IRON #### [facility] [address] [place] [address] Dr. Ekta FunkHbA1c (Bld) [Mass fraction]6.3 %Critically high4.5-6.2The [facility] HospitalComment on above:Performed By: #### B12FOL, VITAD, IRON #### [facility] [address] [place] [address] Dr. Ekta Shannon 79-91-1853Dfcb [Mass/Vol]55.0 ug/vUUrgrno65.0-170.0The [facility] HospitalComment on above:Performed By: #### B12FOL, VITAD, IRON #### [facility] [address] [place] [address] Dr. Yilan ChangLIPID PROFILEon 98-95-6854MLZV-HDL RATIO NORMSEE [facility] HospitalComment on above:Result Comment: 3.3 - 4.4 LOW RISK 4.4 - 7.1 AVERAGE RISK 7.1 - 11.0 MODERATE RISK >11.0 HIGH RISKPerformed By: #### INSULIN #### [facility] [address] [address] [address] Ekta FunkCholesterol [Mass/Vol]294 mg/dLCritically high<=200The [facility] HospitalComment on above:Performed By: #### INSULIN #### [facility] [address] [address] [address] Ekta FunkCholesterol in HDL [Mass/Vol]64 mg/dLCritically lpsh69-42EorPromedica Defiance Regional HospitalComc.s. [facility] on above:Performed By: #### INSULIN #### [facility] [address] [address] [address] Ekta FunkCholesterol in LDL [Mass/Vol]197.2 mg/dLBlanchard Valley Health SystemComment on above:Performed By: #### INSULIN #### [facility] [address] [address] [address] Ekta Tejedaestertracy.total/Cholesterol in HDL [Mass ratio]4.6 {ratio} NormalThe [facility] on above:Performed By: #### INSULIN #### [facility] [address] [address] [address] Ekta Uriarte NORMAL> or = 60 mg/dl - LOW CARDIOVASCULAR RISK <40 mg/dl - HIGH CARDIOVASCULAR RISKBlanchard Valley Health SystemComc.[facility]. [facility] on above:Performed By: #### INSULIN #### [facility] [address] [address] [address] Ekta FunkLDL CALC NORMALSEE [facility] HospitalComment on above:Result Comment: <100 mg/dl OPTIMAL 100 - 129 mg/dl NEAR OR ABOVE OPTIMAL 130 - 159 mg/dl BORDERLINE HIGH 160 - 189 mg/dl HIGH >190 mg/dl VERY HIGH Performed By: #### INSULIN #### [facility] [address] [place] [address] Dr. Ekta FunkTriglyceride [Mass/Vol]164 mg/dLCritically high<=150The [facility] HospitalComment on above:Performed By: #### INSULIN #### [facility] [address] [address] [address] Ekta FunkVLDL CALC32.8 mg/dLNormalThe [facility] HospitalComment on above: Performed By: #### INSULIN #### [facility] [address] [address] [address] Ekta FunkPROF 14(COMP METB)on 00-30-2819Dsenxin [Mass/Vol]3.0 g/dL Critically low3.4-5.0The [facility] HospitalComment on above:Performed By: #### INSULIN #### [facility] [address] [place] [address] Dr. Ekta FunkAlbumin/Globulin [Mass ratio]0.6 {ratio}NormalThe [facility] HospitalComment on above:Performed By: #### INSULIN #### [facility] [address] [place] [address] Dr. Ekta Cowart [Catalytic activity/Vol]92 U/DZfylau94-114Lqo [facility] HospitalComment on above:Performed By: #### INSULIN #### [facility] [address] [place] [address] Dr. Ekta Mccormick [Catalytic activity/Vol]26 U/VRsduop42-16Kxf [facility] HospitalComment on above:Performed By: #### INSULIN #### [facility] [address] [address] [address] Ekta Harrison gap [Moles/Vol]16.2 mmol/LNormalThe [facility] Comment on above:Performed By: #### INSULIN #### [facility] [address] [place] [address] Dr. Ekta FunkAST [Catalytic activity/Vol]16 U/KBkwmwq29-56Wiv [facility] HospitalComment on above:Performed By: #### INSULIN #### [facility] [address] [address] [address] Ekta FunkBilirubin [Mass/Vol]0.5 mg/dLNormal0.2-1.0The [facility] Comment on above:Performed By: #### INSULIN #### [facility] [facility] [address] [place] [address] Dr. Ekta FunkCalcium [Mass/Vol]9.7 mg/dLNormal8.5-10.1The [facility] Comment on above:Performed By: #### INSULIN #### [facility] [address] [address] [address] Ekta FunkChloride [Moles/Vol]105 mmol/SMjpqhl54-529Jev [facility] Comment on above:Performed By: #### INSULIN #### [facility] [address] [place] [address] Dr. Ekta FunkCO2 [Moles/Vol]24.9 mmol/QYpawat57.0-32.0The [facility] Comment on above:Performed By: #### INSULIN #### [facility] [address] [place] [address] Dr. Ekta FunkCreatinine [Mass/Vol]2.18 mg/dLCritically high0.55-1.02The [facility] HospitalComment on above:Performed By: #### INSULIN #### [facility] [address] [place] [address] Dr. Ekta AbebeGFR-AF CASRMCMK57 mL/min/1.98g5Rrgkytomzu low>=60The [facility] HospitalComment on above:Performed By: #### INSULIN #### [facility] [address] [place] [address] Dr. Ekta AbebeGFR-NON AF ZBFXTCMS90 mL/min/1.01m0Lzetnjpbvy low>=60The [facility] HospitalComment on above:Performed By: #### INSULIN #### [facility] [address] [place] [address] Dr. Ekta FunkGlobulin (S) [Mass/Vol]4.7 g/dLNormalThe [facility] HospitalComment on above:Performed By: #### INSULIN #### [facility] [address] [place] [address] Dr. Ekta FunkGlucose [Mass/Vol]114 mg/dLCritically vlaz34-312Ajc [facility] HospitalComment on above:Performed By: #### INSULIN #### [facility] [address] [address] [address] Ekta FunkPotassium [Moles/Vol]5.1 mmol/LNormal3.5-5.1[facility] Comment on above:Performed By: #### INSULIN #### [facility] [address] [address] [address] Ekta FunkProtein [Mass/Vol]7.7 g/dLNormal6.4-8.2[facility] Comment on above:Performed By: #### INSULIN #### [facility] [address] [address] [address] Ekta FunkSodium [Moles/Vol]141 mmol/UPzasdi555-845Tnu [facility] Comment on above:Performed By: #### INSULIN #### [facility] [address] [address] [address] Ekta FunkUrea nitrogen [Mass/Vol]51.0 mg/dLCritically high7.0-18.0The [facility] HospitalComment on above:Performed By: #### INSULIN #### [facility] [address] [address] [address] Ekta Spring nitrogen/Creatinine [Mass ratio]23.4 mg/mgNormalThe [facility] HospitalComment on above:Performed By: #### INSULIN #### [facility] [address] [address] [address] Ekta DoanHorama 70-57-4103NMW6.935 uIU/mLNormal0.358-3.740[facility] HospitalComment on above:Performed By: #### INSULIN #### [facility] [address] [place] [address] Dr. Ekta FunkXR CHEST 2 Von [id number] CHEST 2 VEXAMINATION: XR CHEST 2 V [...] Electronically authenticated by: GODWIN BECK Date: 2022-11-13 15:40[facility]PR[facility](COMP METB)on [id number] [Mass/Vol]3.0 g/dL Critically low3.4-5.0The [facility] HospitalComment on above:Performed By: #### B12FOL, VITAD, IRON #### [facility] [address] [place] [address] Dr. Ekta FunkAlbumin/Globulin [Mass ratio]0.7 {ratio}NormalThe [facility] HospitalComment on above:Performed By: #### B12FOL, VITAD, IRON #### [facility] [address] [place] [address] Dr. Ekta Cowart [Catalytic activity/Vol]89 U/TWujdqr56-507Njd [facility] HospitalComment on above:Performed By: #### B12FOL, VITAD, IRON #### [facility] [address] [place] [address] Dr. Ekta Mccormick [Catalytic activity/Vol]29 U/PWifwdf04-09Bxu [facility] HospitalComment on above:Performed By: #### B12FOL, VITAD, IRON #### [facility] [address] [address] [address] Ekta Harrison gap [Moles/Vol]15.2 mmol/LNormalThe [facility] Comment on above:Performed By: #### B12FOL, VITAD, IRON #### [facility] [address] [place] [address] Dr. Ekta Gonzalez [Catalytic activity/Vol]14 U/LCritically lxg26-36Xiu [facility] HospitalComment on above:Performed By: #### B12FOL, VITAD, IRON #### [facility] [address] [place] [address] Dr. Ekta FunkBilirubin [Mass/Vol]0.4 mg/dLNormal0.2-1.0[facility] Comment on above:Performed By: #### B12FOL, VITAD, IRON #### [facility] [address] [place] [address] Dr. Ekta FunkCalcium [Mass/Vol]9.1 mg/dLNormal8.5-10.1The [facility] Comment on above:Performed By: #### B12FOL, VITAD, IRON #### [facility] [address] [place] [address] Dr. Ekta FunkChloride [Moles/Vol]106 mmol/KKxkqwy17-943WzePromedica [facility] Comment on above:Performed By: #### B12FOL, VITAD, IRON #### [facility] [address] [place] [address] Dr. Ekta FunkCO2 [Moles/Vol]24.2 mmol/LDqmfrm04.0-32.0[facility] Comment on above:Performed By: #### B12FOL, VITAD, IRON #### [facility] [address] [place] [address] Dr. Ekta FunkCreatinine [Mass/Vol]1.89 mg/dLCritically high0.55-1.02[facility] HospitalComment on above:Performed By: #### B12FOL, VITAD, IRON #### [facility] [address] [place] [address] Dr. Ekta Ro-AF EISQXOXX03 mL/min/1.69f1Yxdojjdfur low>=60The [facility] HospitalComment on above:Performed By: #### B12FOL, VITAD, IRON #### [facility] [address] [place] [address] Dr. Ekta Ro-NON AF STYCNPHU01 mL/min/1.32y3Ermupgbhvi low>=60The [facility] HospitalComment on above:Performed By: #### B12FOL, VITAD, IRON #### [facility] [address] [place] [address] Dr. Ekta FunkGlobulin (S) [Mass/Vol]4.1 g/dLNormUniversity Hospitals TriPoint Medical CenterComment on above:Performed By: #### B12FOL, VITAD, IRON #### [facility] [address] [address] [address] Ekta FunkGlucose [Mass/Vol]108 mg/dLCritically dpns90-883Dwl [facility] HospitalComment on above:Performed By: #### B12FOL, VITAD, IRON #### [facility] [address] [place] [address] Dr. Ekta FunkPotassium [Moles/Vol]4.4 mmol/LNormal3.5-5.1The [facility] Comment on above:Performed By: #### B12FOL, VITAD, IRON #### [facility] [address] [place] [address] Dr. Ekta FunkProtein [Mass/Vol]7.1 g/dLNormal6.4-8.2The [facility] Comment on above:Performed By: #### B12FOL, VITAD, IRON #### [facility] [address] [place] [address] Dr. Ekta FunkSodium [Moles/Vol]141 mmol/SOzyqxi739-486Tul [facility] Comment on above:Performed By: #### B12FOL, VITAD, IRON #### [facility] [address] [place] [address] Dr. Ekta FunkUrea nitrogen [Mass/Vol]40.0 mg/dLCritically high7.0-18.0The [facility] HospitalComment on above:Performed By: #### B12FOL, VITAD, IRON #### [facility] [address] [place] [address] Dr. Ekta FunkUrea nitrogen/Creatinine [Mass ratio]21.2 mg/mgNoMartin Memorial HospitalComment on above:Performed By: #### B12FOL, VITAD, IRON #### [facility] [address] [place] [address] Dr. Ekta Vaughan 79-59-4009Bwbpviuqwyo peptide B (Bld) [Mass/Vol]507.0 pg/mL Normal<=900.0The [facility] HospitalComment on above:Performed By: #### B12FOL, VITAD, IRON #### [facility] [address] [address] [address] Ekta Agarwal AUTO DIFFon [id number] #0.0 103/ulNormal0.0-0.1The [facility] HospitalComment on above:Performed By: #### CBC #### [facility] [address] [place] [address] Dr. Ekta FunkBasophils/100 WBC (Bld)0.2 %Normal0.2-2.0The [facility] Comment on above:Performed By: #### CBC #### [facility] [address] [place] [address] Dr. Ekta Anthony #0.1 103/ulNormal0.0-0.7The [facility] HospitalComment on above: Performed By: #### CBC #### [facility] [address] [place] [address] Dr. Ekta Abebeosinophils/100 WBC (Bld)1.1 %Normal0.9-7.0The [facility] Comment on above:Performed By: #### CBC #### [facility] [address] [place] [address] Dr. Ekta Abeberythrocyte distribution width (RBC) [Ratio]12.8 %Lgjgvu86.0-15.0 The [facility] HospitalComment on above:Performed By: #### CBC #### [facility] [address] [place] [address] Dr. Ekta FunkHematocrit (Bld) [Volume fraction]37.1 %Crnnzh78.0-48.0The [facility] HospitalComment on above:Performed By: #### CBC #### [facility] [address] [place] [address] Dr. Ekta FunkHemoglobin (Bld) [Mass/Vol]13.0 g/tVEbfpme88.0-16.0The [facility] HospitalComment on above:Performed By: #### CBC #### [facility] [address] [address] [address] Ekta Olivares #0.11 10e3/ulCritically high0.00-0.03The [facility] Comment on above:Performed By: #### CBC #### [facility] [address] [address] [address] Ekta Olivares %1.1 %Critically high0.0-0.5The [facility] HospitalComment on above:Performed By: #### CBC #### [facility] [address] [address] [address] Ekta Putnam #1.6 103/ulNormal1.2-3.8The [facility] HospitalComment on above:Performed By: #### CBC #### [facility] [address] [place] [address] Dr. Ekta Lundberghocytes/100 WBC (Bld)15.6 %Critically low20.5-60.0The [facility] HospitalComment on above:Performed By: #### CBC #### [facility] [address] [address] [address] Ekta MaloneUAL DIFF REQNONormalThe [facility] HospitalComment on above: Performed By: #### CBC #### [facility] [address] [place] [address] Dr. Ekta Oconnor (RBC) [Entitic mass]32.8 xfDyehtl65.7-34.0The [facility]ment on above:Performed By: #### CBC #### [facility] [address] [place] [address] Dr. Ekta Oconnor (RBC) [Mass/Vol]35.0 g/dVNkymio23.9-35.2The [facility] on above:Performed By: #### CBC #### [facility] [address] [place] [address] Dr. Ekta Oconnor (RBC) [Entitic vol]93.7 lEGiexye60.0-99.0The [facility] HospitalComment on above:Performed By: #### CBC #### [facility] [address] [address] [address] Ekta Rivas #0.9 103/ulCritically high0.3-0.8ThAk[facility] Comment on above:Performed By: #### CBC #### [facility] [address] [address] [address] Ekta Perkinsocytes/100 WBC (Bld)8.3 %Normal1.7-12.0[facility] Comment on above:Performed By: #### CBC #### [facility] [address] [address] [address] Ekta Salazar #7.5 103/ulCritically high1.4-6.5ThAkron [facility]'s Hospital Comment on above:Performed By: #### CBC #### [facility] [address] [place] [address] Dr. Ekta Dimasutrophils/100 WBC (Bld)73.7 %Fymjbt01.0-75.0The [facility] HospitalComment on above:Performed By: #### CBC #### [facility] [address] [address] [address] Ekta Salomonlet mean volume (Bld) [Entitic vol]10.3 fLNormal9.5-13.5ThAkron Children's HospitalComment on above:Performed By: #### CBC #### [facility] [address] [address] [address] Ekta FunkPLT135 103/ulCritically hdt659-125Toy [facility] HospitalComment on above:Performed By: #### CBC #### [facility] [address] [address] [address] Ekta FunkRBC3.96 106/ulCritically low4.20-5.40The [facility] HospitalComc.[facility]. [facility] on above:Performed By: #### CBC #### [facility] [address] [address] [address] Ekta FunkWBC10.2 103/ulNormal4.0-11.0The [facility] HospitalComment on above:Performed By: #### CBC #### [facility] [address] [place] [address] Dr. Ekta Pal 14(COMP METB)on 32-79-1721Pdddtfc [Mass/Vol]2.7 g/dL Critically low3.4-5.0The [facility] HospitalComment on above:Performed By: #### B12FOL, VITAD, IRON #### [facility] [address] [place] [address] Dr. Ekta FunkAlbumin/Globulin [Mass ratio]0.8 {ratio}NormalThe [facility] HospitalComment on above:Performed By: #### B12FOL, VITAD, IRON #### [facility] [address] [place] [address] Dr. Ekta Cowart [Catalytic activity/Vol]74 U/UAcpkqj18-159Hpf [facility] Hospitalment on above:Performed By: #### B12FOL, VITAD, IRON #### [facility] [address] [place] [address] Dr. Ekta Mccormick [Catalytic activity/Vol]26 U/NNzcsrb35-34Fgd [facility] Hospitalment on above:Performed By: #### B12FOL, VITAD, IRON #### [facility] [address] [place] [address] Dr. Ekta Harrison gap [Moles/Vol]16.5 mmol/LNormalThe [facility] Comment on above:Performed By: #### B12FOL, VITAD, IRON #### [facility] [address] [place] [address] Dr. Ekta Gonzalez [Catalytic activity/Vol]15 U/DDfdeup68-20Ugs [facility] Hospitalment on above:Performed By: #### B12FOL, VITAD, IRON #### [facility] [address] [place] [address] Dr. Ekta FunkBilirubin [Mass/Vol]0.4 mg/dLNormal0.2-1.0The [facility] Comment on above:Performed By: #### B12FOL, VITAD, IRON #### [facility] [address] [address] [address] Ekta FunkCalcium [Mass/Vol]8.1 mg/dLCritically low8.5-10.1The [facility] HospitalComment on above:Performed By: #### B12FOL, VITAD, IRON #### [facility] [address] [address] [address] Ekta FunkChloride [Moles/Vol]96 mmol/LCritically fqv23-576Bqf [facility] HospitalComment on above:Performed By: #### B12FOL, VITAD, IRON #### [facility] [address] [place] [address] Dr. Ekta FunkCO2 [Moles/Vol]26.1 mmol/BRomgnf35.0-32.0The [facility] Comment on above:Performed By: #### B12FOL, VITAD, IRON #### [facility] [address] [place] [address] Dr. Ekta FunkCreatinine [Mass/Vol]3.28 mg/dLCritically high0.55-1.02The [facility] HospitalComment on above:Performed By: #### B12FOL, VITAD, IRON #### [facility] [address] [place] [address] Dr. Ekta AbebeGFR-AF BFUOSGJN45 mL/min/1.49z7Gquwwegyak low>=60The [facility] HospitalComment on above:Performed By: #### B12FOL, VITAD, IRON #### [facility] [address] [place] [address] Dr. Ekta AbebeGFR-NON AF HFJWMODL28 mL/min/1.81i7Zdriisexya low>=60The [facility] HospitalComment on above:Performed By: #### B12FOL, VITAD, IRON #### [facility] [address] [place] [address] Dr. Ekta FunkGlobulin (S) [Mass/Vol]3.6 g/dLNormalThe [facility] HospitalComment on above:Performed By: #### B12FOL, VITAD, IRON #### [facility] [address] [address] [address] Ekta FunkGlucose [Mass/Vol]132 mg/dLCritically ffll62-758Pri [facility] HospitalComment on above:Performed By: #### B12FOL, VITAD, IRON #### [facility] [address] [place] [address] Dr. Ekta FunkPotassium [Moles/Vol]4.6 mmol/LNormal3.5-5.1The [facility] Comment on above:Performed By: #### B12FOL, VITAD, IRON #### [facility] [address] [place] [address] Dr. Ekta FunkProtein [Mass/Vol]6.3 g/dLCritically low6.4-8.2The [facility] HospitalComment on above:Performed By: #### B12FOL, VITAD, IRON #### [facility] [address] [place] [address] Dr. Ekta FunkSodium [Moles/Vol]134 mmol/LCritically pnf625-654Jcc [facility] HospitalComment on above:Performed By: #### B12FOL, VITAD, IRON #### [facility] [address] [place] [address] Dr. Ekta FunkUrea nitrogen [Mass/Vol]74.0 mg/dLCritically high7.0-18.0The [facility] HospitalComment on above:Performed By: #### B12FOL, VITAD, IRON #### [facility] [address] [place] [address] Dr. Ekta Spring nitrogen/Creatinine [Mass ratio]22.6 mg/mgNormalThe [facility] HospitalComment on above:Performed By: #### B12FOL, VITAD, IRON #### [facility] [address] [place] [address] Dr. Ekta Vaughan 82-88-1260Ypdihjhoumy peptide B (Bld) [Mass/Vol]1411.0 pg/mLCritically high<=900.0The [facility] HospitalComment on above:Performed By: #### B12FOL, VITAD, IRON #### [facility] [address] [place] [address] Dr. Ekta Agarwal AUTO DIFFon [id number] #0.0 103/ulNormal0.0-0.1The [facility] Hospitalment on above:Performed By: #### B12FOL, VITAD, IRON #### [facility] [address] [place] [address] Dr. Ekta FunkBasophils/100 WBC (Bld)0.3 %Normal0.2-2.0The [facility] Comment on above:Performed By: #### B12FOL, VITAD, IRON #### [facility] [address] [place] [address] Dr. Ekta Anthony #0.1 103/ulNormal0.0-0.7The [facility] Hospitalment on above: Performed By: #### B12FOL, VITAD, IRON #### [facility] [address] [place] [address] Dr. Ekta Abebeosinophils/100 WBC (Bld)0.6 %Critically low0.9-7.0The [facility] HospitalComment on above:Performed By: #### B12FOL, VITAD, IRON #### [facility] [address] [place] [address] Dr. Ekta Abeberythrocyte distribution width (RBC) [Ratio]12.9 %Nynxgv71.0-15.0 The [facility] Hospitalment on above:Performed By: #### B12FOL, VITAD, IRON #### [facility] [address] [place] [address] Dr. Ekta FunkHematocrit (Bld) [Volume fraction]40.8 %Nfkvda49.0-48.0The [facility] HospitalComment on above:Performed By: #### B12FOL, VITAD, IRON #### [facility] [address] [place] [address] Dr. Ekta FunkHemoglobin (Bld) [Mass/Vol]14.0 g/gQEqohum88.0-16.0The [facility] HospitalComment on above:Performed By: #### B12FOL, VITAD, IRON #### [facility] [address] [place] [address] Dr. Ekta Olivares #0.09 10e3/ulCritically high0.00-0.03The [facility] Comment on above:Performed By: #### B12FOL, VITAD, IRON #### [facility] [address] [place] [address] Dr. Ekta Olivares %0.8 %Critically high0.0-0.5The [facility] HospitalComment on above:Performed By: #### B12FOL, VITAD, IRON #### [facility] [address] [place] [address] Dr. Ekta Putnam #1.8 103/ulNormal1.2-3.8The [facility] HospitalComment on above:Performed By: #### B12FOL, VITAD, IRON #### [facility] [address] [place] [address] Dr. Ekta Lundberghocytes/100 WBC (Bld)16.2 %Critically low20.5-60.0The [facility] HospitalComment on above:Performed By: #### B12FOL, VITAD, IRON #### [facility] [address] [place] [address] Dr. Ekta Beckham DIFF REQNONormalThe [facility] HospitalComment on above: Performed By: #### B12FOL, VITAD, IRON #### [facility] [address] [place] [address] Dr. Ekta Oconnor (RBC) [Entitic mass]32.3 rjGrizcz60.7-34.0The [facility] HospitalComment on above:Performed By: #### B12FOL, VITAD, IRON #### [facility] [address] [place] [address] Dr. Ekta Oconnor (RBC) [Mass/Vol]34.3 g/nCJyqbff77.9-35.2The [facility] HospitalComment on above:Performed By: #### B12FOL, VITAD, IRON #### [facility] [address] [place] [address] Dr. Ekta Estevez (RBC) [Entitic vol]94.2 gZAnwhhq51.0-99.0The [facility] HospitalComment on above:Performed By: #### B12FOL, VITAD, IRON #### [facility] [address] [place] [address] Dr. Ekta Rivas #0.8 103/ulNormal0.3-0.8The [facility] HospitalComment on above:Performed By: #### B12FOL, VITAD, IRON #### [facility] [address] [place] [address] Dr. Ekta Perkinsocytes/100 WBC (Bld)7.3 %Normal1.7-12.0The [facility] Comment on above:Performed By: #### B12FOL, VITAD, IRON #### [facility] [address] [place] [address] Dr. Ekta Salazar #8.1 103/ulCritically high1.4-6.5The [facility] Comment on above:Performed By: #### B12FOL, VITAD, IRON #### [facility] [address] [place] [address] Dr. Ekta Dimasutrophils/100 WBC (Bld)74.8 %Bwqpbp56.0-75.0The [facility] HospitalComment on above:Performed By: #### B12FOL, VITAD, IRON #### [facility] [address] [place] [address] Dr. Ekta Trevino mean volume (Bld) [Entitic vol]9.8 fLNormal9.5-13.5The [facility] HospitalComment on above:Performed By: #### B12FOL, VITAD, IRON #### [facility] [address] [place] [address] Dr. Ekta DriverT226 103/kkIcojeu154-926Euy [facility] HospitalComment on above: Performed By: #### B12FOL, VITAD, IRON #### [facility] [address] [place] [address] Dr. Ekta FunkRBC4.33 106/ulNormal4.20-5.40The [facility] HospitalComment on above:Performed By: #### B12FOL, VITAD, IRON #### [facility] [address] [place] [address] Dr. Ekta FunkWBC10.9 103/ulNormal4.0-11.0The [facility] HospitalComment on above:Performed By: #### B12FOL, VITAD, IRON #### [facility] [address] [place] [address] Dr. Ekta FunkPROF 14(COMP METB)on 45-86-0851Lqkeort [Mass/Vol]3.1 g/dL Critically low3.4-5.0The [facility] HospitalComment on above:Performed By: #### B12FOL, VITAD, IRON #### [facility] [address] [place] [address] Dr. Ekta FunkAlbumin/Globulin [Mass ratio]0.7 {ratio}NormalThe [facility] HospitalComment on above:Performed By: #### B12FOL, VITAD, IRON #### [facility] [address] [place] [address] Dr. Ekta Cowart [Catalytic activity/Vol]81 U/PAbkkwv82-654Alp [facility] HospitalComment on above:Performed By: #### B12FOL, VITAD, IRON #### [facility] [address] [place] [address] Dr. Ekta Mccormick [Catalytic activity/Vol]30 U/EFolnkx60-55Dpk [facility]ment on above:Performed By: #### B12FOL, VITAD, IRON #### [facility] [address] [place] [address] Dr. Ekta Harrison gap [Moles/Vol]17.3 mmol/LNormalThe [facility] on above:Performed By: #### B12FOL, VITAD, IRON #### [facility] [address] [place] [address] Dr. Yilan ChangAST [Catalytic activity/Vol]11 U/LCritically kdq27-69Kdb [facility] HospitalComment on above:Performed By: #### B12FOL, VITAD, IRON #### [facility] [address] [address] [address] Ekta FunkBilirubin [Mass/Vol]0.5 mg/dLNormal0.2-1.0[facility] Comment on above:Performed By: #### B12FOL, VITAD, IRON #### [facility] [address] [address] [address] Ekta FunkCalcium [Mass/Vol]8.6 mg/dLNormal8.5-10.1The [facility] Comment on above:Performed By: #### B12FOL, VITAD, IRON #### [facility] [address] [place] [address] Dr. Ekta FunkChloride [Moles/Vol]95 mmol/LCritically vje68-771Ypu [facility] HospitalComment on above:Performed By: #### B12FOL, VITAD, IRON #### [facility] [address] [address] [address] Ekta FunkCO2 [Moles/Vol]27.3 mmol/TNfvomu27.0-32.0The [facility] Comment on above:Performed By: #### B12FOL, VITAD, IRON #### [facility] [address] [place] [address] Dr. Ekta FunkCreatinine [Mass/Vol]3.17 mg/dLCritically high0.55-1.02The [facility] HospitalComment on above:Performed By: #### B12FOL, VITAD, IRON #### [facility] [address] [address] [address] Ekta AbebeGFR-AF PRVUAOAK83 mL/min/1.00m2Duesjeyppr low>=60The [facility] HospitalComment on above:Performed By: #### B12FOL, VITAD, IRON #### [facility] [address] [address] [address] Ekta AbebeGFR-NON AF UVCISFLJ26 mL/min/1.19w6Reithxswpv low>=60The [facility] HospitalComment on above:Performed By: #### B12FOL, VITAD, IRON #### [facility] [address] [address] [address] Ekta FunkGlobulin (S) [Mass/Vol]4.6 g/dLNormUniversity Hospitals TriPoint Medical CenterComment on above:Performed By: #### B12FOL, VITAD, IRON #### [facility] [address] [place] [address] Dr. Ekta FunkGlucose [Mass/Vol]139 mg/dLCritically xvdh59-561Ire [facility] HospitalComment on above:Performed By: #### B12FOL, VITAD, IRON #### [facility] [address] [place] [address] Dr. Ekta FunkPotassium [Moles/Vol]4.6 mmol/LNormal3.5-5.1The [facility] Comment on above:Performed By: #### B12FOL, VITAD, IRON #### [facility] [address] [place] [address] Dr. Ekta FunkProtein [Mass/Vol]7.7 g/dLNormal6.4-8.2The [facility] Comment on above:Performed By: #### B12FOL, VITAD, IRON #### [facility] [address] [place] [address] Dr. Ekta FunkSodium [Moles/Vol]135 mmol/LCritically hra452-966Tag [facility] HospitalComment on above:Performed By: #### B12FOL, VITAD, IRON #### [facility] [address] [place] [address] Dr. Ekta FunkUrea nitrogen [Mass/Vol]73.0 mg/dLCritically high7.0-18.0The [facility] HospitalComment on above:Performed By: #### B12FOL, VITAD, IRON #### [facility] [address] [place] [address] Dr. Ekta FunkUrea nitrogen/Creatinine [Mass ratio]23.0 mg/mgNoMartin Memorial HospitalComment on above:Performed By: #### B12FOL, VITAD, IRON #### [facility] [address] [address] [address] Ekta Vaughan 57-64-6210Jrupkijunze peptide B (Bld) [Mass/Vol]2007.0 pg/mLCritically high<=900.0The [facility] HospitalComment on above:Performed By: #### CMP #### [facility] [address] [address] [address] Ekta Agarwal AUTO DIFFon 37-70-1732ACSK #0.0 103/ulNormal0.0-0.1The [facility] HospitalComment on above:Performed By: #### CBC #### [facility] [address] [place] [address] Dr. Ekta FunkBasophils/100 WBC (Bld)0.2 %Normal0.2-2.0The [facility] Comment on above:Performed By: #### CBC #### [facility] [address] [place] [address] Dr. Ekta Anthony #0.1 103/ulNormal0.0-0.7The [facility] HospitalComment on above: Performed By: #### CBC #### [facility] [address] [place] [address] Dr. Ekta Abebeosinophils/100 WBC (Bld)0.9 %Normal0.9-7.0The [facility] Comment on above:Performed By: #### CBC #### [facility] [address] [place] [address] Dr. Ekta Abeberythrocyte distribution width (RBC) [Ratio]12.8 %Uuyvzp38.0-15.0 The [facility] HospitalComment on above:Performed By: #### CBC #### [facility] [address] [place] [address] Dr. Ekta FunkHematocrit (Bld) [Volume fraction]38.8 %Gwsclh35.0-48.0The [facility] HospitalComment on above:Performed By: #### CBC #### [facility] [address] [address] [address] Ekta FunkHemoglobin (Bld) [Mass/Vol]13.3 g/ePMsjmcf80.0-16.0The [facility] HospitalComment on above:Performed By: #### CBC #### [facility] [address] [address] [address] Ekta Olivares #0.08 10e3/ulCritically high0.00-0.03The [facility] Comment on above:Performed By: #### CBC #### [facility] [address] [place] [address] Dr. Ekta Olivares %0.8 %Critically high0.0-0.5The [facility] HospitalComment on above:Performed By: #### CBC #### [facility] [address] [place] [address] Dr. Ekta Putnam #1.7 103/ulNormal1.2-3.8The [facility] HospitalComment on above:Performed By: #### CBC #### [facility] [address] [place] [address] Dr. Ekta Lundberghocytes/100 WBC (Bld)17.3 %Critically low20.5-60.0The [facility] HospitalComment on above:Performed By: #### CBC #### [facility] [address] [place] [address] Dr. Ekta MaloneUAL DIFF REQNONormalThe [facility] HospitalComment on above: Performed By: #### CBC #### [facility] [address] [place] [address] Dr. Ekta Oconnor (RBC) [Entitic mass]32.1 kyVwjxia31.7-34.0The [facility] HospitalComment on above:Performed By: #### CBC #### [facility] [address] [place] [address] Dr. Ekta Oconnor (RBC) [Mass/Vol]34.3 g/mYSivqsu91.9-35.2The [facility] HospitalComment on above:Performed By: #### CBC #### [facility] [address] [place] [address] Dr. Ekta OconnorV (RBC) [Entitic vol]93.7 kTCywqrd16.0-99.0The [facility] Hospitalment on above:Performed By: #### CBC #### [facility] [address] [place] [address] Dr. Ekta Rivas #0.6 103/ulNormal0.3-0.8The [facility] HospitalComment on above:Performed By: #### CBC #### [facility] [address] [place] [address] Dr. Ekta Perkinsocytes/100 WBC (Bld)6.4 %Normal1.7-12.0The [facility] Comment on above:Performed By: #### CBC #### [facility] [address] [place] [address] Dr. Ekta Salazar #7.4 103/ulCritically high1.4-6.5The [facility] Comment on above:Performed By: #### CBC #### [facility] [address] [place] [address] Dr. Ekta Dimasutrophils/100 WBC (Bld)74.4 %Dfajzz33.0-75.0The [facility] HospitalComment on above:Performed By: #### CBC #### [facility] [address] [place] [address] Dr. Ekta Salomonlet mean volume (Bld) [Entitic vol]9.8 fLNormal9.5-13.5The [facility] HospitalComment on above:Performed By: #### CBC #### [facility] [address] [place] [address] Dr. Ekta FunkPLT193 103/qySogdsn143-467Ngf [facility] HospitalComment on above: Performed By: #### CBC #### [facility] [address] [place] [address] Dr. Ekta FunkRBC4.14 106/ulCritically low4.20-5.40The [facility] HospitalComment on above:Performed By: #### CBC #### [facility] [address] [address] [address] Ekta FunkWBC9.9 103/ulNormal4.0-11.0The [facility] HospitalComment on above: Performed By: #### CBC #### [facility] [address] [address] [address] Ekta FunkPROF 14(COMP METB)on 59-09-3493Guafyue [Mass/Vol]3.2 g/dL Critically low3.4-5.0The [facility] HospitalComment on above:Performed By: #### INSULIN #### [facility] [address] [place] [address] Dr. Ekta FunkAlbumin/Globulin [Mass ratio]0.8 {ratio}NormalThe [facility] HospitalComment on above:Performed By: #### INSULIN #### [facility] [address] [place] [address] Dr. Ekta AlcantaraP [Catalytic activity/Vol]82 U/PRlvxhv13-459Nfy [facility] HospitalComment on above:Performed By: #### INSULIN #### [facility] [address] [place] [address] Dr. Ekta Mccormick [Catalytic activity/Vol]38 U/WIlksle37-87Xlj [facility] HospitalComment on above:Performed By: #### INSULIN #### [facility] [address] [place] [address] Dr. Ekta Harrison gap [Moles/Vol]19.1 mmol/LNormalThe [facility] Comment on above:Performed By: #### INSULIN #### [facility] [address] [place] [address] Dr. Ekta FunkAST [Catalytic activity/Vol]19 U/ITtirfi77-41Zbd [facility] HospitalComment on above:Performed By: #### INSULIN #### [facility] [address] [place] [address] Dr. Ekta FunkBilirubin [Mass/Vol]0.4 mg/dLNormal0.2-1.0The [facility] Comment on above:Performed By: #### INSULIN #### [facility] [address] [address] [address] Ekta FunkCalcium [Mass/Vol]9.2 mg/dLNormal8.5-10.1The [facility] Comment on above:Performed By: #### INSULIN #### [facility] [address] [address] [address] Ekta FunkChloride [Moles/Vol]98 mmol/HKkqznb86-486Rwn [facility] Comment on above:Performed By: #### INSULIN #### [facility] [address] [address] [address] Ekta FunkCO2 [Moles/Vol]26.4 mmol/LGgxvqv60.0-32.0The [facility] Comment on above:Performed By: #### INSULIN #### [facility] [address] [address] [address] Ekta FunkCreatinine [Mass/Vol]2.20 mg/dLCritically high0.55-1.02The [facility] HospitalComment on above:Performed By: #### INSULIN #### [facility] [address] [address] [address] Dash ChangEGFR-AF DZPRHKGN81 mL/min/1.27w6Zjrsavsjbq low>=60The [facility] HospitalComment on above:Performed By: #### INSULIN #### [facility] [address] [address] [address] Ekta AbebeGFR-NON AF LCTRHPFF80 mL/min/1.27g0Jkarpedpde low>=60The [facility] HospitalComment on above:Performed By: #### INSULIN #### [facility] [address] [address] [address] Ekta FunkGlobulin (S) [Mass/Vol]3.8 g/dLNormalThe [facility] HospitalComment on above:Performed By: #### INSULIN #### [facility] [address] [address] [address] Ekta FunkGlucose [Mass/Vol]142 mg/dLCritically cogi19-742Kpq [facility] HospitalComment on above:Performed By: #### INSULIN #### [facility] [address] [address] [address] Ekta FunkPotassium [Moles/Vol]4.5 mmol/LNormal3.5-5.1The [facility] Comment on above:Performed By: #### INSULIN #### [facility] [address] [address] [address] Ekta FunkProtein [Mass/Vol]7.0 g/dLNormal6.4-8.2The [facility] Comment on above:Performed By: #### INSULIN #### [facility] [address] [address] [address] Ekta FunkSodium [Moles/Vol]139 mmol/TNeoqvc313-112Lce [facility] Comment on above:Performed By: #### INSULIN #### [facility] [address] [address] [address] Ekta FunkUrea nitrogen [Mass/Vol]57.0 mg/dLCritically high7.0-18.0The [facility] HospitalComment on above:Performed By: #### INSULIN #### [facility] [address] [address] [address] Ekta FunkUrea nitrogen/Creatinine [Mass ratio]25.9 mg/mgNormalThe [facility] HospitalComment on above:Performed By: #### INSULIN #### [facility] [address] [address] [address] Ekta FunkT3, TOTAL (TRIIODOTHYRONINE)on 86-50-8563L9, TOTAL63 ng/dL Critically ply15-262Ept [facility] HospitalComment on above:Performed By: #### CMP #### [facility] [address] [address] [address] Ekta FunkXR ABD FLAT_UPon 53-51-8746GB ABD FLAT_UPEXAMINATION: XR ABD FLAT_UP HISTORY: Generalized abdominal pain , shortness of breath COMPARISON: No relevant comparison available. FINDINGS: BOWEL GAS PATTERN: Non-obstructed. FREE AIR: None. CALCIFICATIONS: None significant. BONES: Mild left convex curvature lumbar spine. No appreciable fracture. OTHER: Negative. IMPRESSION: 1. Normal bowel gas pattern. No suspicious abdominal findings. Electronically authenticated by: DANIEL PINEDA Date: 2022-10-21 11:42[facility] SystemXR [facility] 2 Von [id number] CHEST 2 VEXAM: XR CHEST 2 V, [...] Electronically authenticated by: CHRISTIANO MORALES Date: 2022-10-21 11:23[facility] SystemBNPon 53-07-2015Ypwfodefhrb peptide B (Bld) [Mass/Vol]2512.0 pg/mLCritically high<=900.0The [facility] HospitalComment on above:Performed By: #### B12FOL, VITAD, IRON #### [facility] [address] [address] [address] Ekta Hale BRITTANIE ADMITon 84-00-1129WL [Catalytic activity/Vol]35 U/L Dcuwym61-385LvsPromedica Defiance Regional HospitalComment on above:Performed By: #### B12FOL, VITAD, IRON #### [facility] [address] [address] [address] Ekta Howell.MB [Mass/Vol]0.64 ng/mLNormal<=3.60[facility] Comment on above:Performed By: #### B12FOL, VITAD, IRON #### [facility] [address] [address] [address] Ekta Carlisle28.1 pg/mLNormal4.0-51.3The [facility] HospitalComment on above:Result Comment: CUT-OFF POINTS HAVE BEEN ESTABLISHED BASED ON THE FOURTH UNIVERSAL DEFINITIONS OF MYOCARDIAL INFARCTION. THE UPPER REFERENCE LIMIT (URL) OF TROPONIN, DEFINED THE 99TH PERCENTILE OF cTnI DISTRIBUTION IN A REFERENCE POPULATION, HAS BEEN CONFIRMED THE DECISION THRESHOLD FOR IN DIAGNOSIS.Performed By: #### B12FOL, VITAD, IRON #### [facility] [address] [place] [address] Dr. Ekta FunkMYO57 ng/mLNormal9-82The [facility] HospitalComment on above: Performed By: #### B12FOL, VITAD, IRON #### [facility] [address] [place] [address] Dr. Ekta Agarwal AUTO DIFFon 52-97-3728ALUE #0.0 103/ulNormal0.0-0.1The [facility] HospitalComment on above:Performed By: #### CBC #### [facility] [address] [place] [address] Dr. Ekta FunkBasophils/100 WBC (Bld)0.2 %Normal0.2-2.0[facility] Comment on above:Performed By: #### CBC #### [facility] [address] [place] [address] Dr. Ekta Anthony #0.2 103/ulNormal0.0-0.7The [facility] HospitalComment on above: Performed By: #### CBC #### [facility] [address] [place] [address] Dr. Ekta Abebeosinophils/100 WBC (Bld)1.4 %Normal0.9-7.0[facility] Comment on above:Performed By: #### CBC #### [facility] [address] [place] [address] Dr. Ekta Abeberythrocyte distribution width (RBC) [Ratio]12.9 %Xfpard37.0-15.0 [facility] HospitalComment on above:Performed By: #### CBC #### [facility] [address] [place] [address] Dr. Ekta FunkHematocrit (Bld) [Volume fraction]34.7 %Critically low36.0-48.0 The [facility] HospitalComment on above:Performed By: #### CBC #### [facility] [address] [place] [address] Dr. Yilan ChangHemoglobin (Bld) [Mass/Vol]11.8 g/dLCritically low12.0-16.0The [facility] HospitalComment on above:Performed By: #### CBC #### [facility] [address] [place] [address] Dr. Ekta Olivares #0.09 10e3/ulCritically high0.00-0.03The [facility] Comment on above:Performed By: #### CBC #### [facility] [address] [place] [address] Dr. Ekta Olivares %0.8 %Critically high0.0-0.5The [facility] HospitalComment on above:Performed By: #### CBC #### [facility] [address] [place] [address] Dr. Ekta Putnam #1.9 103/ulNormal1.2-3.8The [facility] HospitalComment on above:Performed By: #### CBC #### [facility] [address] [place] [address] Dr. Ekta Lundberghocytes/100 WBC (Bld)16.1 %Critically low20.5-60.0The [facility] HospitalComment on above:Performed By: #### CBC #### [facility] [address] [place] [address] Dr. Ekta Beckham DIFF REQNONormalThe [facility] HospitalComment on above: Performed By: #### CBC #### [facility] [address] [place] [address] Dr. Ekta Frye (RBC) [Entitic mass]32.6 ytNakyja38.7-34.0The [facility] HospitalComment on above:Performed By: #### CBC #### [facility] [address] [place] [address] Dr. Ekta Oconnor (RBC) [Mass/Vol]34.0 g/kSVejjut90.9-35.2The [facility] HospitalComment on above:Performed By: #### CBC #### [facility] [address] [place] [address] Dr. Ekta OconnorV (RBC) [Entitic vol]95.9 vSAqemrh37.0-99.0The [facility] HospitalComment on above:Performed By: #### CBC #### [facility] [address] [place] [address] Dr. Ekta Rivas #0.8 103/ulNormal0.3-0.8The [facility] HospitalComment on above:Performed By: #### CBC #### [facility] [address] [place] [address] Dr. Ekta Perkinsocytes/100 WBC (Bld)7.0 %Normal1.7-12.0The [facility] Comment on above:Performed By: #### CBC #### [facility] [address] [place] [address] Dr. Ekta Salazar #8.8 103/ulCritically high1.4-6.5The [facility] Comment on above:Performed By: #### CBC #### [facility] [address] [place] [address] Dr. Ekta Dimasutrophils/100 WBC (Bld)74.5 %Iccbdb92.0-75.0The [facility] HospitalComment on above:Performed By: #### CBC #### [facility] [address] [place] [address] Dr. Ekta Trevino mean volume (Bld) [Entitic vol]9.8 fLNormal9.5-13.5The [facility] HospitalComment on above:Performed By: #### CBC #### [facility] [address] [place] [address] Dr. Ekta FunkPLT203 103/vgRkuflp739-966Fbr [facility] HospitalComment on above: Performed By: #### CBC #### [facility] [address] [place] [address] Dr. Ekta FunkRBC3.62 106/ulCritically low4.20-5.40The [facility] HospitalComment on above:Performed By: #### CBC #### [facility] [address] [place] [address] Dr. Ekta FunkWBC11.8 103/ulCritically high4.0-11.0The [facility] HospitalComment on above:Performed By: #### CBC #### [facility] [address] [address] [address] Ekta FunkCULTURE URINEon 55-12-2486XZRGGFG URINECulture Observations: NO GROWTH.NormalThe [facility] HospitalComment on above:Performed By: #### INSULIN #### [facility] [address] [address] [address] Ekta FunkCovid-19 PCR ([facility])on 61-88-8018OYWB-CoV-2 (COVID-19) RNA GANESH+probe Ql (Unsp spec)Not detectedNormalNOT DETECTEDThe [facility] Comment on above:Result Comment: When diagnostic [...] for this test is supported by the [employer] of [employer] and Human Service's declaration that [...] #### B12FOL, VITAD, IRON #### [facility] [address] [address] [address] Ekta AbebeCHOCARDIO M/2D COMPLETEon [id number] M/2D COMPLETE Patient: SHEILA MAC Exam Date: 10/20/2022 : 1950 Gender:F Ordering : DR KRZYSZTOF THOMPSON . Admission #: [id number] Family : Order #: [id number] CLICK HERE TO VIEW EXAM ECHOCARDIOGRAM REPORT [...] by: Sylwia Mckay M.D. on 10/20/2022 at 14:57[facility] SystemPROF 14(COMP METB)on 48-47-0268Zgvtlwd [Mass/Vol]2.8 g/dLCritically low 3.4-5.0The [facility] HospitalComment on above:Performed By: #### B12FOL, VITAD, IRON #### [facility] [address] [place] [address] Dr. Ekta FunkAlbumin/Globulin [Mass ratio]0.7 {ratio}NormalThe [facility] HospitalComment on above:Performed By: #### B12FOL, VITAD, IRON #### [facility] [address] [address] [address] Ekta Cowart [Catalytic activity/Vol]84 U/TVpraqj37-852Qvw [facility] on above:Performed By: #### B12FOL, VITAD, IRON #### [facility] [address] [address] [address] Ekta Mccormick [Catalytic activity/Vol]29 U/DDyapqh98-18Ijt [facility] Hospitalment on above:Performed By: #### B12FOL, VITAD, IRON #### [facility] [address] [address] [address] Ekta Mcleodon gap [Moles/Vol]15.9 mmol/LNormalPromedica [facility] Comment on above:Performed By: #### B12FOL, VITAD, IRON #### [facility] [address] [place] [address] Dr. Ekta FunkAST [Catalytic activity/Vol]15 U/WNunsdt39-61GcgPromedica Defiance Regional HospitalComment on above:Performed By: #### B12FOL, VITAD, IRON #### [facility] [address] [place] [address] Dr. Ekta FunkBilirubin [Mass/Vol]0.3 mg/dLNormal0.2-1.0[facility] Comment on above:Performed By: #### B12FOL, VITAD, IRON #### [facility] [address] [place] [address] Dr. Ekta FunkCalcium [Mass/Vol]8.9 mg/dLNormal8.5-10.1[facility] Comment on above:Performed By: #### B12FOL, VITAD, IRON #### [facility] [address] [place] [address] Dr. Ekta FunkChloride [Moles/Vol]103 mmol/IAzogpz09-704TygPromedica Defiance [facility] Hospital Comment on above:Performed By: #### B12FOL, VITAD, IRON #### [facility] [address] [place] [address] Dr. Ekta FunkCO2 [Moles/Vol]26.3 mmol/ZZhxgta80.0-32.0[facility] Comment on above:Performed By: #### B12FOL, VITAD, IRON #### [facility] [address] [place] [address] Dr. Ekta FunkCreatinine [Mass/Vol]1.99 mg/dLCritically high0.55-1.02The [facility] HospitalComment on above:Performed By: #### B12FOL, VITAD, IRON #### [facility] [address] [place] [address] Dr. Ekta AbebeGFR-AF DWBRPMJW79 mL/min/1.13g9Ayrkveuacf low>=60The [facility] HospitalComment on above:Performed By: #### B12FOL, VITAD, IRON #### [facility] [address] [place] [address] Dr. Ekta AbebeGFR-NON AF SBTNOAUW52 mL/min/1.61n4Lxjqxralmd low>=60The [facility] HospitalComment on above:Performed By: #### B12FOL, VITAD, IRON #### [facility] [address] [place] [address] Dr. Ekta FunkGlobulin (S) [Mass/Vol]4.1 g/dLNormalThe [facility] HospitalComment on above:Performed By: #### B12FOL, VITAD, IRON #### [facility] [address] [place] [address] Dr. Ekta FunkGlucose [Mass/Vol]115 mg/dLCritically rpcz08-290BtpPromedica Defiance Regional HospitalComment on above:Performed By: #### B12FOL, VITAD, IRON #### [facility] [address] [place] [address] Dr. Ekta FunkPotassium [Moles/Vol]5.2 mmol/LCritically high3.5-5.1Prom[facility] Regional HospitalComment on above:Performed By: #### B12FOL, VITAD, IRON #### [facility] [address] [place] [address] Dr. Ekta FunkProtein [Mass/Vol]6.9 g/dLNormal6.4-8.2[facility] Comment on above:Performed By: #### B12FOL, VITAD, IRON #### [facility] [address] [place] [address] Dr. Ekta FunkSodium [Moles/Vol]140 mmol/DNqsjww554-163FrqPromedica Defiance Regional Hospital Comment on above:Performed By: #### B12FOL, VITAD, IRON #### [facility] [address] [address] [address] Ekta Spring nitrogen [Mass/Vol]45.0 mg/dLCritically high7.0-18.0The [facility] HospitalComment on above:Performed By: #### B12FOL, VITAD, IRON #### [facility] [address] [place] [address] Dr. Ekta Spring nitrogen/Creatinine [Mass ratio]22.6 mg/mgNormalThe [facility] HospitalComment on above:Performed By: #### B12FOL, VITAD, IRON #### [facility] [address] [place] [address] Dr. Ekta Cloud4on [id number] [Mass/Vol]6.10 ug/dLNormal4.80-13.90The [facility] HospitalComment on above:Performed By: #### B12FOL, VITAD, IRON #### [facility] [address] [place] [address] Dr. Ekta Carmona [id number] uIU/mLNormal0.358-3.740The [facility] Hospitalment on above:Performed By: #### B12FOL, VITAD, IRON #### [facility] [address] [place] [address] Dr. Ekta Camejo RANDOM W/MICROSCOPICon [id number]D SEENThe [facility] HospitalComment on above:Performed By: #### B12FOL, VITAD, IRON #### [facility] [address] [place] [address] Dr. Ekta Emeryirubin Ql (U)NegativeNormalNEGATIVEThe [facility] Comment on above:Performed By: #### B12FOL, VITAD, IRON #### [facility] [address] [place] [address] Dr. Ekta Velasquez SEENNormalNONE SEENThe [facility] HospitalComment on above:Performed By: #### B12FOL, VITAD, IRON #### [facility] [address] [place] [address] Dr. Ekta FunkClarity (U)CLEARNormalCLEARPromedica Defiance Regional HospitalComment on above: Performed By: #### B12FOL, VITAD, IRON #### [facility] [address] [address] [address] Ekta Suttonlor (U)LT. YELLOWNormalYELLOWPromedica Defiance Regional HospitalComment on above:Performed By: #### B12FOL, VITAD, IRON #### [facility] [address] [address] [address] Ekta FunkCrystals LM Nom (Urine sed)NONE SEENNormalNONE SEENPromedica Defiance Regional HospitalComment on above:Performed By: #### B12FOL, VITAD, IRON #### [facility] [address] [place] [address] Dr. Dash ChangEpithelial cells LM Ql (Urine sed)RARENormalNONE SEEN /RAREThe [facility] HospitalComment on above:Performed By: #### B12FOL, VITAD, IRON #### [facility] [address] [place] [address] Dr. Ekta FunkGlucose Ql (U)NegativeNormalNEGATIVEPromedica Defiance Regional HospitalComment on above:Performed By: #### B12FOL, VITAD, IRON #### [facility] [address] [place] [address] Dr. Ekta FunkHemoglobin Ql (U)NegativeNormalNEGATIVEPromedica Defiance [facility] Hospital Comment on above:Performed By: #### B12FOL, VITAD, IRON #### [facility] [address] [place] [address] Dr. Ekta FunkKetones Ql (U)NegativeNormalNEGATIVEPromedica Defiance Regional HospitalComment on above:Performed By: #### B12FOL, VITAD, IRON #### [facility] [address] [place] [address] Dr. Ekta FunkLEUKOCYTESNegativeNormalNEGATIVEPromedica Defiance Regional HospitalComment on above:Performed By: #### B12FOL, VITAD, IRON #### [facility] [address] [address] [address] Ekta BlantonUSJAMIE SEENNormalNONE SEENPromedica Defiance Regional HospitalComment on above:Performed By: #### B12FOL, VITAD, IRON #### [facility] [address] [address] [address] Ekta Long Ql (U)NegativeNormalNEGATIVEThe [facility] HospitalComment on above:Performed By: #### B12FOL, VITAD, IRON #### [facility] [address] [address] [address] Ekta FunkpH (U)6.0 [pH]Normal5-9The [facility] HospitalComment on above: Performed By: #### B12FOL, VITAD, IRON #### [facility] [address] [place] [address] Dr. Ekta FunkDoofwJKW3-2Govfhq9-2Abk [facility] HospitalComment on above:Performed By: #### B12FOL, VITAD, IRON #### [facility] [address] [place] [address] Dr. Ekta FunkSPEC GRAVITY<=1.437Dvlyeutu9.005-<=1.025The [facility] Comment on above:Performed By: #### B12FOL, VITAD, IRON #### [facility] [address] [place] [address] Dr. Ekta Camejo PROTEINNegativeNormalNEGATIVE/ TRACEThe [facility] Comment on above:Performed By: #### B12FOL, VITAD, IRON #### [facility] [address] [place] [address] Dr. Ekta Lugo Qn (U)0.2 {Ivan'U}/dLNormal0.2 - 1.0The [facility] HospitalComment on above:Performed By: #### B12FOL, VITAD, IRON #### [facility] [address] [place] [address] Dr. Ekta LeonardoBCJAMIE SEENNormalNONE SEENThe [facility] HospitalComment on above: Performed By: #### B12FOL, VITAD, IRON #### [facility] [address] [address] [address] Ekta LopezPon [id number] peptide B (Bld) [Mass/Vol]1355.0 pg/mLCritically high<=900.0The [facility] HospitalComment on above:Performed By: #### B12FOL, VITAD, IRON #### [facility] [address] [address] [address] Ekta FunkINSULINon 42-59-4281Ngrqkpf45.4 uIU/mLNormal2.6-24.9The [facility] HospitalComment on above:Performed By: #### INSULIN #### [facility] [address] [place] [address] Dr. Ekta FunkOCC BLD IMMUNO SCREENon [id number] BLOODPositiveAbnormal NEGATIVEThe [facility] HospitalComment on above:Performed By: #### B12FOL, VITAD, IRON #### [facility] [address] [place] [address] Dr. Ekta FunkPROF CHEM 8 (BAS METB)on [id number] gap [Moles/Vol]15.8 mmol/LNormalPromedica Defiance Regional HospitalComment on above:Performed By: #### B12FOL, VITAD, IRON #### [facility] [address] [place] [address] Dr. Ekta FunkCalcium [Mass/Vol]8.8 mg/dLNormal8.5-10.1The [facility] Comment on above:Performed By: #### B12FOL, VITAD, IRON #### [facility] [address] [place] [address] Dr. Ekta FunkChloride [Moles/Vol]107 mmol/SFewbub76-351Mit [facility] Comment on above:Performed By: #### B12FOL, VITAD, IRON #### [facility] [address] [place] [address] Dr. Ekta FunkCO2 [Moles/Vol]21.5 mmol/CBqgqet01.0-32.0The [facility] Comment on above:Performed By: #### B12FOL, VITAD, IRON #### [facility] [address] [address] [address] Ekta FunkCreatinine [Mass/Vol]1.62 mg/dLCritically high0.55-1.02The [facility] HospitalComment on above:Performed By: #### B12FOL, VITAD, IRON #### [facility] [address] [place] [address] Dr. Ekta AbebeGFR-AF TKLGBUFS93 mL/min/1.72z7Qnfgwyaxpc low>=60The [facility] HospitalComment on above:Performed By: #### B12FOL, VITAD, IRON #### [facility] [address] [place] [address] Dr. Ekta AbebeGFR-NON AF TSJUWLZY36 mL/min/1.40d1Urvgjrxryd low>=60The [facility] HospitalComment on above:Performed By: #### B12FOL, VITAD, IRON #### [facility] [address] [place] [address] Dr. Ekta FunkGlucose [Mass/Vol]134 mg/dLCritically gxkh51-229Wjb [facility] HospitalComment on above:Performed By: #### B12FOL, VITAD, IRON #### [facility] [address] [place] [address] Dr. Ekta FunkPotassium [Moles/Vol]5.3 mmol/LCritically high3.5-5.1The [facility] HospitalComment on above:Performed By: #### B12FOL, VITAD, IRON #### [facility] [address] [place] [address] Dr. Ekta FunkSodium [Moles/Vol]139 mmol/JSvgpov861-920Uia [facility] Comment on above:Performed By: #### B12FOL, VITAD, IRON #### [facility] [address] [place] [address] Dr. Ekta FunkUrea nitrogen [Mass/Vol]37.0 mg/dLCritically high7.0-18.0The [facility] HospitalComment on above:Performed By: #### B12FOL, VITAD, IRON #### [facility] [address] [place] [address] Dr. Ekta Spring nitrogen/Creatinine [Mass ratio]22.8 mg/mgNormalThe [facility] HospitalComment on above:Performed By: #### B12FOL, VITAD, IRON #### [facility] [address] [place] [address] Dr. Ekta Rich, HIGH SENSITIVITYon 64-47-9154WBNFPT47.2 pg/mLCritically high4.0-51.3TSelect Medical Specialty Hospital - CantonComment on above:Result Comment: CUT-OFF POINTS HAVE BEEN ESTABLISHED BASED ON THE FOURTH UNIVERSAL DEFINITIONS OF MYOCARDIAL INFARCTION. THE UPPER REFERENCE LIMIT (URL) OF TROPONIN, DEFINED THE 99TH PERCENTILE OF cTnI DISTRIBUTION IN A REFERENCE POPULATION, HAS BEEN CONFIRMED THE DECISION THRESHOLD FOR IN DIAGNOSIS.Performed By: #### B12FOL, VITAD, IRON #### [facility] [address] [place] [address] Dr. Ekta Vaughan 56-76-4058Atipbrmuvrx peptide B (Bld) [Mass/Vol]1386.0 pg/mLCritically high<=900.0The [facility] HospitalComment on above:Performed By: #### CVDTBH #### [facility] [address] [place] [address] Dr. Ekta Hale BRITTANIE ADMITon [id number] [Catalytic activity/Vol]34 U/L Dskhst54-638EdlPromedica Defiance Regional HospitalComment on above:Performed By: #### CVDTBH #### [facility] [address] [place] [address] Dr. Ekta Howell.MB [Mass/Vol]1.43 ng/mLNormal<=3.60[facility] Comment on above:Performed By: #### CVDTBH #### [facility] [address] [place] [address] Dr. Ekta FunkHSTROP74.1 pg/mLCritically high4.0-51.3TSelect Medical Specialty [facility] Comment on above:Result Comment: CUT-OFF POINTS HAVE BEEN ESTABLISHED BASED ON THE FOURTH UNIVERSAL DEFINITIONS OF MYOCARDIAL INFARCTION. THE UPPER REFERENCE LIMIT (URL) OF TROPONIN, DEFINED THE 99TH PERCENTILE OF cTnI DISTRIBUTION IN A REFERENCE POPULATION, HAS BEEN CONFIRMED THE DECISION THRESHOLD FOR IN DIAGNOSIS.Performed By: #### CVDTBH #### [facility] [address] [place] [address] Dr. Ekta CampO52 ng/mLNormal9-82The [facility] HospitalComment on above: Performed By: #### CVDTBH #### [facility] [address] [place] [address] Dr. Ekta Agarwal AUTO DIFFon [id number] #0.0 103/ulNormal0.0-0.1The [facility] HospitalComment on above:Performed By: #### CBC #### [facility] [address] [place] [address] Dr. Ekta FunkBasophils/100 WBC (Bld)0.3 %Normal0.2-2.0[facility] Comment on above:Performed By: #### CBC #### [facility] [address] [place] [address] Dr. Ekta Anthony #0.1 103/ulNormal0.0-0.7The [facility] HospitalComment on above: Performed By: #### CBC #### [facility] [address] [place] [address] Dr. Ekta Abebeosinophils/100 WBC (Bld)0.9 %Normal0.9-7.0[facility] Comment on above:Performed By: #### CBC #### [facility] [address] [place] [address] Dr. Ekta Abeberythrocyte distribution width (RBC) [Ratio]13.2 %Nhyasc93.0-15.0 [facility] HospitalComment on above:Performed By: #### CBC #### [facility] [address] [place] [address] Dr. Ekta FunkHematocrit (Bld) [Volume fraction]38.9 %Bamytv57.0-48.0The [facility] HospitalComment on above:Performed By: #### CBC #### [facility] [address] [address] [address] Ekta FunkHemoglobin (Bld) [Mass/Vol]12.4 g/pYJjeozk53.0-16.0The [facility] HospitalComment on above:Performed By: #### CBC #### [facility] [address] [place] [address] Dr. Ekta Olivares #0.08 10e3/ulCritically high0.00-0.03The [facility] Comment on above:Performed By: #### CBC #### [facility] [address] [place] [address] Dr. Ekta Olivares %0.5 %Normal0.0-0.5The [facility] HospitalComment on above: Performed By: #### CBC #### [facility] [address] [place] [address] Dr. Ekta Putnam #1.4 103/ulNormal1.2-3.8The [facility] HospitalComment on above:Performed By: #### CBC #### [facility] [address] [place] [address] Dr. Ekta Lundberghocytes/100 WBC (Bld)9.6 %Critically low20.5-60.0The [facility] HospitalComment on above:Performed By: #### CBC #### [facility] [address] [place] [address] Dr. Ekta MaloneUAL DIFF REQNONormalThe [facility] HospitalComment on above: Performed By: #### CBC #### [facility] [address] [place] [address] Dr. Ekta Oconnor (RBC) [Entitic mass]32.3 vyLtdyok43.7-34.0The [facility] HospitalComment on above:Performed By: #### CBC #### [facility] [address] [place] [address] Dr. Ekta Oconnor (RBC) [Mass/Vol]31.9 g/iBJzkbyb11.9-35.2The [facility] HospitalComment on above:Performed By: #### CBC #### [facility] [address] [address] [address] Ekta OconnorV (RBC) [Entitic vol]101.3 fLCritically high81.0-99.0The [facility] HospitalComment on above:Performed By: #### CBC #### [facility] [address] [address] [address] Ekta Rivas #0.9 103/ulCritically high0.3-0.8The [facility] Comment on above:Performed By: #### CBC #### [facility] [address] [address] [address] Ekta Perkinsocytes/100 WBC (Bld)6.3 %Normal1.7-12.0[facility] Comment on above:Performed By: #### CBC #### [facility] [address] [place] [address] Dr. Ekta DimasUT #12.0 103/ulCritically high1.4-6.5The [facility] Comment on above:Performed By: #### CBC #### [facility] [address] [place] [address] Dr. Ekta Dimasutrophils/100 WBC (Bld)82.4 %Critically high43.0-75.0The [facility] HospitalComment on above:Performed By: #### CBC #### [facility] [address] [place] [address] Dr. Ekta Salomonlet mean volume (Bld) [Entitic vol]9.7 fLNormal9.5-13.5The [facility] HospitalComment on above:Performed By: #### CBC #### [facility] [address] [place] [address] Dr. Ekta FunkPLT176 103/sbEslxat173-179Clo [facility] HospitalComment on above: Performed By: #### CBC #### [facility] [address] [place] [address] Dr. Ekta FunkRBC3.84 106/ulCritically low4.20-5.40The [facility] HospitalComment on above:Performed By: #### CBC #### [facility] [address] [address] [address] Ekta FunkWBC14.6 103/ulCritically high4.0-11.0The [facility] HospitalComment on above:Performed By: #### CBC #### [facility] [address] [address] [address] Ekta Correa THYROXINE INDEX T7on 93-70-5027UCO8.00Yrbqra0.30-4.50The [facility] HospitalComment on above:Performed By: #### CVDTBH #### [facility] [address] [address] [address] Ekta FunkT3U36.0 %Lfeixu18.0-39.0The [facility] HospitalComment on above: Performed By: #### CVDTBH #### [facility] [address] [address] [address] Ekta FunkT4 [Mass/Vol]6.50 ug/dLNormal4.80-13.90The [facility] Comment on above:Performed By: #### CVDTBH #### [facility] [address] [address] [address] Ekta FunkGLYCOHEMOGLOBIN A1Con [id number] RECOMMENDATIONSEE BELOWNormal The [facility] HospitalComc.[facility] on above:Result Comment: ADA RECOMMENDED LIMIT 4.0 - 6.0 ADA THERAPEUTIC TARGET < 7.0 ACTION SUGGESTED > 7.0Performed By: #### B12FOL, VITAD, IRON #### [facility] [address] [place] [address] Dr. Ekta FunkGlucose [Mass/Vol]140 mg/dLNormalThe [facility] HospitalComment on above:Performed By: #### B12FOL, VITAD, IRON #### [facility] [address] [place] [address] Dr. Ekta FunkHbA1c (Bld) [Mass fraction]6.5 %Critically high4.5-6.2The [facility] HospitalComment on above:Performed By: #### B12FOL, VITAD, IRON #### [facility] [address] [address] [address] Ekta Shannon [id number] [Mass/Vol]62.0 ug/gUMoqvrp41.0-170.0The [facility] on above:Performed By: #### B12FOL, VITAD, IRON #### [facility] [address] [address] [address] Ekta FunkLIPID PROFILEon [id number]-HDL RATIO NORMSEE [facility] HospitalComc.[facility] on above:Result Comment: 3.3 - 4.4 LOW RISK 4.4 - 7.1 AVERAGE RISK 7.1 - 11.0 MODERATE RISK >11.0 HIGH RISKPerformed By: #### CVDTBH #### [facility] [address] [place] [address] Dr. Ekta FunkCholesterol [Mass/Vol]242 mg/dLCritically high<=200The [facility] on above:Performed By: #### CVDTBH #### [facility] [address] [address] [address] Ekta FunkCholesterol in HDL [Mass/Vol]74 mg/dLCritically uwyg47-12Lsh [facility] on above:Performed By: #### CVDTBH #### [facility] [address] [place] [address] Dr. Ekta FunkCholesterol in LDL [Mass/Vol]139.4 mg/dLAultman Orrville Hospital on above:Performed By: #### CVDTBH #### [facility] [address] [place] [address] Dr. Ekta Tejedaestertracy.total/Cholesterol in HDL [Mass ratio]3.3 {ratio} NormalThe [facility] on above:Performed By: #### CVDTBH #### [facility] [address] [place] [address] Dr. Ekta FunkHDHu NORMAL> or = 60 mg/dl - LOW CARDIOVASCULAR RISK <40 mg/dl - HIGH CARDIOVASCULAR RISKBlanchard Valley Health SystemComment on above:Performed By: #### CVDTBH #### [facility] [address] [address] [address] Ekta Navarro CALC NORMALSEE BELOWNoMartin Memorial HospitalComment on above:Result Comment: <100 mg/dl OPTIMAL 100 - 129 mg/dl NEAR OR ABOVE OPTIMAL 130 - 159 mg/dl BORDERLINE HIGH 160 - 189 mg/dl HIGH >190 mg/dl VERY HIGH Performed By: #### CVDTBH #### [facility] [address] [address] [address] Ekta FunkTriglyceride [Mass/Vol]143 mg/dLNormal<=150The [facility] Comment on above:Performed By: #### CVDTBH #### [facility] [address] [place] [address] Dr. Ekta AnneLDL CALC28.6 mg/dLNoMartin Memorial HospitalComment on above: Performed By: #### CVDTBH #### [facility] [address] [address] [address] Ekta FunkPROF 14(COMP METB)on 95-68-0377Rovswpr [Mass/Vol]2.8 g/dL Critically low3.4-5.0The [facility] on above:Performed By: #### CVDTBH #### [facility] [address] [place] [address] Dr. Ekta FunkAlbumin/Globulin [Mass ratio]0.7 {ratio}NormalThe [facility] HospitalComment on above:Performed By: #### CVDTBH #### [facility] [address] [place] [address] Dr. Ekta Cowart [Catalytic activity/Vol]90 U/BImtkaw27-683Ucx [facility] HospitalComc.[facility] on above:Performed By: #### CVDTBH #### [facility] [address] [place] [address] Dr. Ekta Mccormick [Catalytic activity/Vol]26 U/KDexcpe49-36Xxl [facility] on above:Performed By: #### CVDTBH #### [facility] [address] [address] [address] Ekta FunkAnion gap [Moles/Vol]14.5 mmol/LNormalProm[facility] Comment on above:Performed By: #### CVDTBH #### [facility] [address] [address] [address] Ekta FunkAST [Catalytic activity/Vol]14 U/LCritically ldg73-84Auw [facility] HospitalComment on above:Performed By: #### CVDTBH #### [facility] [address] [place] [address] Dr. Ekta FunkBilirubin [Mass/Vol]0.4 mg/dLNormal0.2-1.0[facility] Comment on above:Performed By: #### CVDTBH #### [facility] [address] [place] [address] Dr. Ekta FunkCalcium [Mass/Vol]8.9 mg/dLNormal8.5-10.1[facility] Comment on above:Performed By: #### CVDTBH #### [facility] [address] [address] [address] Ekta FunkChloride [Moles/Vol]106 mmol/FGxsual03-661LlwPromedica Defiance [facility] Hospital Comment on above:Performed By: #### CVDTBH #### [facility] [address] [place] [address] Dr. Ekta FunkCO2 [Moles/Vol]23.5 mmol/YOhduif53.0-32.0The [facility] Comment on above:Performed By: #### CVDTBH #### [facility] [address] [address] [address] Ekta FunkCreatinine [Mass/Vol]1.70 mg/dLCritically high0.55-1.02The [facility] HospitalComment on above:Performed By: #### CVDTBH #### [facility] [address] [address] [address] Dash ChangEGFR-AF RKHIGVUD51 mL/min/1.92i8Mfmgrmzfiz low>=60The [facility] HospitalComment on above:Performed By: #### CVDTBH #### [facility] [address] [address] [address] Ekta AbebeGFR-NON AF XBXSLZVE71 mL/min/1.92a5Qefyfdferh low>=60The [facility] HospitalComment on above:Performed By: #### CVDTBH #### [facility] [address] [address] [address] Ekta FunkGlobulin (S) [Mass/Vol]4.0 g/dLNormalThAkron Children's HospitalComment on above:Performed By: #### CVDTBH #### [facility] [address] [address] [address] Ekta FunkGlucose [Mass/Vol]99 mg/tBEsrcjw63-654ZbbPromedica [facility] Hospital Comment on above:Performed By: #### CVDTBH #### [facility] [address] [address] [address] Ekta FunkPotassium [Moles/Vol]5.0 mmol/LNormal3.5-5.1The [facility] Comment on above:Performed By: #### CVDTBH #### [facility] [address] [address] [address] Ekta FunkProtein [Mass/Vol]6.8 g/dLNormal6.4-8.2[facility] Comment on above:Performed By: #### CVDTBH #### [facility] [address] [address] [address] Ekta FunkSodium [Moles/Vol]139 mmol/VWznzul766-914EbiPromedica Defiance Regional Hospital Comment on above:Performed By: #### CVDTBH #### [facility] [address] [address] [address] Ekta FunkUrea nitrogen [Mass/Vol]36.0 mg/dLCritically high7.0-18.0[facility] HospitalComment on above:Performed By: #### CVDTBH #### [facility] [address] [address] [address] Ekta FunkUrea nitrogen/Creatinine [Mass ratio]21.2 mg/mgNormalThe [facility] HospitalComment on above:Performed By: #### CVDTBH #### [facility] [address] [place] [address] Dr. Ekta Carmona 75-59-4153SGF5.910 uIU/mLNormal0.358-3.740The [facility] on above:Performed By: #### CVDTBH #### [facility] [address] [place] [address] Dr. Ekta FunkCovid-19 PCR ([facility])on [id number]-CoV-2 (COVID-19) RNA GANESH+probe Ql (Unsp spec)DetectedAbnormalNOT DETECTEDThe [facility] on above:Result Comment: This test is not yet approved or cleared by the [place] FDA. When there are no FDA-approved or cleared tests available, and other criteria are met, FDA can make tests available under an emergency access mechanism called an Emergency Use Authorization (EUA). The EUA for this test is supported by the Plaster Molder of Health and Human Service's declaration that [...] used).Performed By: #### CMP #### [facility] [address] [place] [address] Dr. Ekta FunkINFLNGHIANZA A AND B AGon [id number] [facility] on above:Result Comment: Negative for Flu A protein angiten. Infection due to Flu A cannot be ruled out. FluA angiten in the sample may be below the detection limit of the test.Performed By: #### B12FOL, VITAD, IRON #### [facility] [address] [place] [address] Dr. Ekta FunkINFLUBNEGHSEE [facility] on above: Result Comment: Negative for Flu B protein antigen. Infection due to Flu B cannot be ruled out. FluB antigen in the sample may be below the detection limit of the test.Performed By: #### B12FOL, VITAD, IRON #### [facility] [address] [place] [address] Dr. Ekta Arguelles AGNegativeNormalNEGATIVE SEE COMMENTThe [facility] HospitalComment on above:Performed By: #### B12FOL, VITAD, IRON #### [facility] [address] [address] [address] Ekta Rojas AGNegativeNormalNEGATIVE SEE COMMENTThe [facility] HospitalComment on above:Performed By: #### B12FOL, VITAD, IRON #### [facility] [address] [place] [address] Dr. Ekta Woody CAROTID ART BILon [id number] CAROTID ART BILEXAMINATION: US CAROTID ART ANGELIQUE [...] Electronically authenticated by: GODWIN BECK Date: 2022-05-26 16:[address] [place], [place] [address]MRI BRAIN WO CONon [id number] BRAIN WO CONEXAMINATION: MRI BRAIN WO CON, [...] Electronically authenticated by: DANIEL PINEDA Date: 2022-05-25 10:[address] [place], [place] [address]ECHOCARDIO M/2D COMPLETEon [id number] M/2D COMPLETE Patient: SHEILA MAC Exam Date: 05/24/2022 : 1950 Gender:F Ordering : DR KRZYSZTOF THOMPSON . Admission #: [id number] Family : Order #: [id number] CLICK HERE TO VIEW EXAM ECHOCARDIOGRAM REPORT [...] by: Sylwia Mckay M.D. on 05/24/2022 at 14:45[facility] METABOLIC PANELon 41-28-9103Tkrwvpw mass conc9.4 mg/dLNormal 8.6-10.3[facility]Comment [facility] above:Order Comment: No: Do not add to previous drawPerformed By: #### [id number] #### [facility] [address] [place] [address], USAChloride molar aaut839 mmol/MRqcp90-500Vql [facility] HospitalComment on above:Order Comment: No: Do not add to previous drawPerformed By: #### [id number] #### [facility] [address] [place] [address], [place]ACO2 molar conc22 mmol/AXovicx53-38Knv [facility] HospitalComment on above:Order Comment: No: Do not add to previous draw Performed By: #### [id number] #### [facility] [address] [place] [address], USACreatinine mass conc1.18 mg/dLNormal0.60-1.20The [facility] HospitalComment on above:Order Comment: No: Do not add to previous drawPerformed By: #### [id number] #### [facility] [address] [place] [address], USAGFR/1.73 sq M predicted among blacks MDRD vol rate/area (S/P/Bld)55 ml/min/1.73sq mAbnormal>60The [facility] Comment on above:Order Comment: No: Do not add to previous drawPerformed By: #### [id number] #### [facility] [address] [place] [address], USAGFR/1.73 sq M predicted among non-blacks MDRD vol rate/area (S/P/Bld)45 ml/min/1.73sq mAbnormal>60The [facility] Comment on above:Order Comment: No: Do not add to previous drawPerformed By: #### [id number] #### [facility] [address] [place] [address], USAGlucose mass galg628 mg/wPQnit87-938Adb [facility] HospitalComment on above:Order Comment: No: Do not add to previous drawPerformed By: #### [id number] #### [facility] [address] [place] [address], USAPotassium molar conc4.1 mmol/LNormal3.5-5.1The [facility] HospitalComment on above:Order Comment: No: Do not add to previous drawPerformed By: #### [id number] #### [facility] [address] [place] [address], USASodium molar dmjd500 mmol/SRkiune913-984Fca [facility] HospitalComment on above:Order Comment: No: Do not add to previous drawPerformed By: #### [id number] #### [facility] [address] [facility] [place] [address], USAUrea nitrogen mass conc21 mg/dLNormal7-25The [facility] HospitalComment on above:Order Comment: No: Do not add to previous drawPerformed By: #### [id number] #### [facility] [address] [facility] [place] [address], USACBC COMPLETE BLOOD COUNTon 66-58-2242Bfmepkwqpky distribution width Ratio (RBC)12.9 %Cdgbzj45.5-15.0The [facility] HospitalComment on above:Order Comment: No: Do not add to previous draw Performed By: #### [id number] #### [facility] [address] [place] [address], USAHematocrit Volume Fraction (Bld)36.7 %Usfcao82.0-45.0The [facility] HospitalComment on above:Order Comment: No: Do not add to previous drawPerformed By: #### [id number] #### [facility] [address] [facility] [place] [address], USAHemoglobin mass conc (Bld)12.4 g/iKGxuhvv12.0-15.0The [facility] HospitalComment on above:Order Comment: No: Do not add to previous drawPerformed By: #### [id number] #### [facility] [address] [place] [address], [facility] Entitic mass (RBC)31.2 oyXjubuu19.0-33.0The [facility] HospitalComment on above:Order Comment: No: Do not add to previous drawPerformed By: #### [id number] #### [facility] [address] [place] [address], [facility] CITYHC mass conc (RBC)33.8 g/uCDotgbx69.0-35.0The [facility] HospitalComment on above:Order Comment: No: Do not add to previous drawPerformed By: #### [id number] #### [facility] [address] [place] [address], [facility] Entitic volume (RBC)92.4 bMEhnncn06.0-98.0The [facility] HospitalComment on above:Order Comment: No: Do not add to previous drawPerformed By: #### [id number] #### [facility] [address] [place] [address], [facility] CENTERNucleated RBC/100 WBC Ratio (Bld)0 %Normal0-0The [facility] HospitalComment on above:Order Comment: No: Do not add to previous drawPerformed By: #### [id number] #### [facility] [address] [place] [address], USAPLAT OWR675 10*3/dHTorlay286-734Zrb [facility] HospitalComment on above:Order Comment: No: Do not add to previous draw Performed By: #### 85030 #### [facility] [address] [place] [address], [facility] CENTERRBC #/vol (Bld)3.97 10*6/uLNormal3.80-5.00The [facility] HospitalComment on above:Order Comment: No: Do not add to previous drawPerformed By: #### [id number] #### [facility] [address] [place] [address], [facility] MEDICAL CENTERWBC #/vol (Bld)5.55 10*3/uLNormal4.00-10.60The [facility] HospitalComment on above:Order Comment: No: Do not add to previous drawPerformed By: #### [id number] #### [facility] [address] [place] [address], [facility] MEDICAL CENTERCardiovascular Lab Reporton [id number] Lab ReportUnCommunity Memorial Hospital Patient Name: [facility] Sheila MR #: [id number] Department of Physician: [facility] Shellie Gaspar M.D. Division of Service Date: 11/20/2018 Cardiology Birthdate: 1950 Adult Cardiovascular Room #: 3AB [id number] [facility] [address] [address] Cardiovascular Laboratory Report INDICATION: The patient is a 68-year-old woman who was evaluated in Cardiology Clinic because of new onset symptoms of shortness of breath on mild exertion. Her stress test showed evidence of itssz-yf-uartpwec area of inferoapical ischemia; because of that, she was referred for cardiac catheterization. PROCEDURES: 1. Right heart catheterization. 2. Bilateral selective coronary angiography. 3. Limited right femoral angiography. METHOD: Procedure was explained patient with risks and benefits. She signed informed consent. She was brought to microbiology laboratory manager in a fasting state. The right groin area was prepped and draped in usual fashion. Using micropuncture technique, the right common femoral artery was accessed. The inner cannula was advanced. Limited femoral angiography was performed followed by upsizing to a 6-Taiwanese x 11 cm sheath. Access was also obtained using the same technique in the right common femoral vein and a 6-Taiwanese x 11 cm sheath was placed. A 6-Taiwanese Michel catheter was used for right heart catheterization with measurement of pressures and calculation of cardiac output using the estimated Ivory method. Michel catheter was removed. Bilateral selective coronary angiography was then performed using 6-Taiwanese JL4 and JR4 diagnostic catheters. Catheters were [...] Blane/Bong Gaspar M.D. Date Trans: 11/20/2018 09:31 A/alvina DN_JN:[id number] cc: Krzysztof Thompson M.D. [id number] [facility] [place] [address]AaauemTbdWhite HospitalBASIC METABOLIC PANELon 36-18-8068Eltczrr mass conc9.5 mg/dLNormal8.6-10.3The [facility] HospitalComment on above:Order Comment: No: Do not add to previous drawPerformed By: #### [id number] #### [facility] [address] [place] [address], USAChloride molar idci773 mmol/EEhyldw16-651Lip [facility] HospitalComment on above:Order Comment: No: Do not add to previous drawPerformed By: #### [id number] #### [facility] [address] [place] [address], [place]2 molar conc24 mmol/WYrstyx41-22Viz [facility] HospitalComment on above:Order Comment: No: Do not add to previous draw Performed By: #### [id number] #### [facility] [address] [place] [address], USACreatinine mass conc1.42 mg/dLHigh0.60-1.20The [facility] HospitalComment on above:Order Comment: No: Do not add to previous drawPerformed By: #### 48034 #### [facility] [address] [place] [address], USAGFR/1.73 sq M predicted among blacks MDRD vol rate/area (S/P/Bld)45 ml/min/1.73sq mAbnormal>60The [facility] Comment on above:Order Comment: No: Do not add to previous drawPerformed By: #### [id number] #### [facility] [address] [place] [address], USAGFR/1.73 sq M predicted among non-blacks MDRD vol rate/area (S/P/Bld)36 ml/min/1.73sq mAbnormal>60The [facility] Comment on above:Order Comment: No: Do not add to previous drawPerformed By: #### [id number] #### [facility] [address] [place] [address], USAGlucose mass conc86 mg/cBMnhpwv46-290Lne [facility] HospitalComment on above:Order Comment: No: Do not add to previous drawPerformed By: #### 24543 #### [facility] [address] [place] [address], USAPotassium molar conc4.2 mmol/LNormal3.5-5.1The [facility] HospitalComment on above:Order Comment: No: Do not add to previous drawPerformed By: #### [id number] #### [facility] [address] [place] [address], USASodium molar ngml472 mmol/BTvfkgs263-577Ysm [facility] HospitalComment on above:Order Comment: No: Do not add to previous drawPerformed By: #### [id number] #### [facility] [address] [place] [address], USAUrea nitrogen mass conc19 mg/dLNormal7-25The [facility] HospitalComment on above:Order Comment: No: Do not add to previous drawPerformed By: #### [id number] #### [facility] [address] [place] [address], USACBC COMPLETE BLOOD COUNTon 83-52-0630Kxuboaggdqt distribution width Ratio (RBC)13.0 %Ephmpl40.5-15.0The [facility] HospitalComment on above:Order Comment: No: Do not add to previous draw Performed By: #### 85727 #### [facility] [address] [place] [address], USAHematocrit Volume Fraction (Bld)38.3 %Uknjaa35.0-45.0The [facility] HospitalComment on above:Order Comment: No: Do not add to previous drawPerformed By: #### [id number] #### [facility] [address] [place] [address], USAHemoglobin mass conc (Bld)12.6 g/fTKvglhx10.0-15.0The [facility] HospitalComment on above:Order Comment: No: Do not add to previous drawPerformed By: #### 06115 #### [facility] [address] [place] [address], [facility] Entitic mass (RBC)31.1 ntSnqebi04.0-33.0The [facility] HospitalComment on above:Order Comment: No: Do not add to previous drawPerformed By: #### [id number] #### [facility] [address] [place] [address], [facility] CITYHC mass conc (RBC)32.9 g/dXBcqvck19.0-35.0The [facility] HospitalComment on above:Order Comment: No: Do not add to previous drawPerformed By: #### [id number] #### [facility] [address] [facility] [place] [address], [facility] CITYV Entitic volume (RBC)94.6 sZHspitd79.0-98.0The [facility] HospitalComment on above:Order Comment: No: Do not add to previous drawPerformed By: #### 74491 #### [facility] [address] [address], [facility] MEDICAL CENTERNucleated RBC/100 WBC Ratio (Bld)0 %Normal0-0The [facility] HospitalComment on above:Order Comment: No: Do not add to previous drawPerformed By: #### [id number] #### [facility] [address] [place] [address], [facility]YSICI[facility] MEDICAL CENTERPLAT SSR723 10*3/eJIrlreu912-021Bwa [facility] HospitalComment on above:Order Comment: No: Do not add to previous draw Performed By: #### 82279 #### [facility] [address] [facility]. [address] [id number], [facility] MEDICAL CENTERRBC #/vol (Bld)4.05 10*6/uLNormal3.80-5.00The [facility] HospitalComment on above:Order Comment: No: Do not add to previous drawPerformed By: #### [id number] #### [facility] [address] [place] [address], USAWBC #/vol (Bld)9.01 10*3/uLNormal4.00-10.60The [facility] HospitalComment on above:Order Comment: No: Do not add to previous drawPerformed By: #### [id number] #### [facility] [address] [place] [address], USAPROTHROMBIN TIMEon 30-35-9437AJA Coag RelTime (PPP)1.07 {INR}Normal0.91-1.16The [facility] HospitalComment on above: Order Comment: No: Do [...] OPTIMAL THERAPEUTIC RANGE. CHEST 1995;108:231S-246S.Performed By: #### [id number] #### [facility] [address] [facility] [place] [address], USAProthrombin time (PT) Coag time (PPP)13.9 xQekslo87.3-14.8 The [facility] HospitalComment on above:Order Comment: No: Do not add to previous drawResult Comment: ALL RESULTS MUST BE INTERPRETED WITH RESPECT TO BLOOD DRAWING ARTIFACT OR DILUTION ERROR OF ANTICOAGULANT AT THE TIME OF SAMPLING.Performed By: #### [id number] #### [address] Vital Signs Date TimeVital SignValuePerforming HrvmqykbxLfyhmszu16-21-4933 10:08-0400Body eackqw968.6 cmKaitlin Macdonald CASHIER CHECKER-SOFTWARE DESIGNER Work Phone: [facility]10-14-2025 10:08-0400Body mass index (BMI) [Ratio]20.36 kg/b9KxqgydnKaitlin Macdonald CASHIER CHECKER-SOFTWARE DESIGNER Work Phone: [facility]10-14-2025 10:08-0400Body .8 kgKaitlin Macdonald CASHIER CHECKER-SOFTWARE DESIGNER Work Phone: [facility]10-14-2025 10:08-0400Diastolic blood uzdgojef83 mm[Hg]Kaitlin Macdonald CASHIER CHECKER-SOFTWARE DESIGNER Work Phone: [facility]10-14-2025 10:08-0400Heart rate 66 /minKaitlin Macdonald CASHIER CHECKER-SOFTWARE DESIGNER Work Phone: [facility]10-14-2025 10:08-0400Systolic blood kpacijux977 mm[Hg]Kaitlin Macdonald CASHIER CHECKER-SOFTWARE DESIGNER Work Phone: [facility]07-17-2025 14:35-0400Body .48 cmKrzysztof Thompson MD Work Phone: [facility]07-17-2025 14:35-0400 Body mass index (BMI) [Ratio]21.7 kg/a2GuqdnzpKrzysztof Thompson MD Work Phone: 1(394)575-[address] [place], [place] 1913707-17-2025 14:35-0400 Body kosbmt65.97 kgKrzysztof Thompson MD Work Phone: [phone])882-[address] [place], [place] 1913706-12-2025 14:50-0400 Body jorisj37.2 kgKrzysztof Thompson MD Work Phone: 1(493)476-[address] [place], [place] 1913704-17-2025 10:07-0400 Body .6 cmKaitlin Macdonald CASHIER CHECKER-SOFTWARE DESIGNER Work Phone: [facility] [employer] Jmwimi08-74-7419 10:07-0400Body mass index (BMI) [Ratio]21.7 kg/u4CbbqmtnKaitlin Macdonald CASHIER CHECKER-SOFTWARE DESIGNER Work Phone: [facility] [employer] Hpwcws84-15-6335 10:07-0400Body zzeqmk61.34 kgKaitlin Macdonald CASHIER CHECKER-SOFTWARE DESIGNER Work Phone: [facility] [employer] Miumvg45-54-1294 10:07-0400Diastolic blood zwlturwj74 mm[Hg]Kaitlin Macdonald CASHIER CHECKER-SOFTWARE DESIGNER Work Phone: [facility] [employer] Fkmebm77-76-2476 10:07-0400Heart rate 89 /minKaitlin Macdonald APRN-SOFTWARE DESIGNER Work Phone: [facility] [employer] Pnaeqo26-83-3753 10:07-0400Systolic blood gdtrdwed482 mm[Hg]Kaitlin Macdonald APRN-SOFTWARE DESIGNER Work Phone: [facility] [employer] Nrvorn73-50-7062 14:21-0500Body mass index (BMI) [Ratio]23.52 kg/o9Wnvuwedrrgc Shama DO Work Phone: noResearch [facility] CenterDrzrhdlddf82-52-6312 14:21-0500Body .24 kgChristopher Sesay DO Work Phone: noResearch [facility] CenterKcshkrigpt62-16-4631 14:21-0500Diastolic blood wjowdmsj35 mm[Hg]Christsantoser Shama DO Work Phone: noResearch Medical CenterXczfsadkdk75-83-3257 14:21-0500Heart rate79 /min Christopher Shama DO Work Phone: noResearch Medical CenterLlddzuauyi15-49-1852 14:21-0326BtQ0% (BldA) [Mass fraction]97 %Christopher Shama DO Work Phone: noResearch Medical CenterJtnxzbufia48-04-5804 14:21-0500Systolic blood svtfjarh850 mm[Hg]Christopher Shama DO Work Phone: [facility] CenterFqivhppdao42-98-1338 11:45-0500Body .[address]11-12-2024 11:45-0500Body mass index (BMI) [Ratio] 22.31 kg/m[address]11-12-2024 11:45-0500Body rixzic58.[address]11-06-2024 11:25-0500Body ozgkca101.6 cmKaitlin Macdonald CASHIER CHECKER-SOFTWARE DESIGNER Work Phone: [facility]11-06-2024 11:25-0500Body mass index (BMI) [Ratio]22.49 kg/q7YitxjiyKaitlin Macdonald CASHIER CHECKER-SOFTWARE DESIGNER Work Phone: [facility]11-06-2024 11:25-0500Body .42 kgKaitlin Macdonald CASHIER CHECKER-SOFTWARE DESIGNER Work Phone: [facility]11-04-2024 13:28-0500Body mass index (BMI) [Ratio]23.52 kg/j2Pffkbheirqb Shama DO Work Phone: [facility] CenterJvpkjeiiwa33-85-5885 13:28-0500Body .24 kgChristopher Shama DO Work Phone: [facility] CenterBtjiuqoden81-56-0249 13:28-0500Diastolic blood lpwmtusw055 mm[Hg]Raven Sesay DO Work Phone: [facility] CenterBfazvahqnd80-18-0542 13:28-0500Heart rate87 /min Raven Sesay DO Work Phone: [facility] CenterLhtuawwzrt76-30-3729 13:28-6160KsR3% (BldA) [Mass fraction]91 %Raven Sesay DO Work Phone: [facility] CenterTltvjelgqi35-80-8082 13:28-0500Systolic blood egcozgpa808 mm[Hg]Bonifacioopher Shama DO Work Phone: [facility] CenterAbogmifcaz77-82-5888 11:35-0400Diastolic blood ubatidmz213 mm[Hg]MD Krzysztof Thompson Work Phone: [phone])[address] [place], [place] 1052007-17-2024 11:35-0400 Heart rate76 /minMD Krzysztof Hoanastasia Work Phone: [phone])[address] [place], [place] 1052007-17-2024 11:35-0400 Respiratory rate18 /minMD Krzysztof Hoy Work Phone: [phone])[address] [place], [place] 1052007-17-2024 11:35-0400 SaO2% (BldA) [Mass fraction]96 %MD Krzysztof Thompson Work Phone: [phone])[address] [place], [place] [address]2007-17-2024 11:35-0400 Systolic blood atpwcwgc626 mm[Hg]MD Krzysztof Thompson Work Phone: [phone])[address] [place], [place] [address]2007-17-2024 10:24-0400 Body rmfxah437.48 cmMD Krzysztof Hoy Work Phone: [phone])[address] [place], [place] 1052007-17-2024 10:24-0400 Body sdhaca38.14 kgMD Krzysztof Hoy Work Phone: [phone])[address] [place], [place] 1052006-11-2024 09:07-0400 Body xyjgea878.48 cmMD Rkzysztof Hoy Work Phone: 1(773)[address] [place], [place] 1052006-11-2024 09:07-0400 Body mass index (BMI) [Ratio]24.7 kg/m2MD Krzysztof Hoy Work Phone: 1(098)[address] [place], [place] 1052006-11-2024 09:07-0400 Body iybdrc26.23 kgMD Krzysztof Hoy Work Phone: 1419)[address] [place], [place] 1052006-11-2024 09:07-0400 Diastolic blood mm[Hg]MD Krzysztof Thompson Work Phone: 1(625)[address] [place], [place] 1052006-11-2024 09:07-0400 Heart rate60 /minMD Krzysztof Thompson Work Phone: 1(912)[address] [place], [place] 1052006-11-2024 09:07-0400 Systolic blood oncnfnzw771 mm[Hg]MD Krzysztof Thompson Work Phone: 1(658)896-[address] [place], [place] 1913705-28-2024 13:37-0400 Diastolic blood mm[Hg]MD Krzysztof Thompson Work Phone: 1(990)[address]05-28-2024 13:37-0400 Heart rate78 /minMD Krzysztof Thompson Work Phone: 1(465)[address]05-28-2024 13:37-0400 Respiratory rate16 /minMD Krzysztof Thompson Work Phone: [phone])[address]05-28-2024 13:37-0400 SaO2% (BldA) [Mass fraction]97 %MD Krzysztof Thompson Work Phone: [phone])[phone]05-28-2024 13:37-0400 Systolic blood evikrrro849 mm[Hg]MD Krzysztof Thompson Work Phone: 1(130)[address]05-28-2024 11:35-0400 Body wsaxhp015.48 cmMD Krzysztof Thompson Work Phone: 1(044)[address]05-28-2024 11:35-0400 Body bwvqdxdhqix05.1 [degF]MD Krzysztof Thompson Work Phone: 1(450)[address]05-28-2024 11:35-0400 Body rqykxs70.14 kgMD Krzysztof Thompson Work Phone: 1(560)[address] [place] [address] Encounters Encounter DateEncounter TypeCare ProviderFacilityStart: 63-23-6032dqlhcxlvrv [facility] 07-15-2025 End: 30-97-7989Eopdhmqcu encounterErin Bashir [facility]ITALPro[facility]icians General SurgeryStart: 06-23-2025 End: 71-09-5056Nuywkw outpatient visit 15 minutesKaitlin Macdonald APRN-SOFTWARE DESIGNER Work Phone: [facility] General SurgeryComment on above: Incontinence of feces, unspecified fecal incontinence type (Primary Dx); Diverticular stricture ([facility])Start: 06-23-2025 End: 79-65-6889iwbjuliurdBHGIBQKAnMed Health [facility] Start: 05-13-2025 End: 01-47-0303djqjuvkbraVehzvdk M Hoy MD Work Phone: [facility] Work Phone: Start: 05-13-2025 End: 14-94-4593Xxdsqcoo ReferredKrzysztof Marmolejo MD-LAB [facility] Start: 05-04-2025 End: 01-20-6889chkckrhhivKgxiqig M Hoy MD Work Phone: [facility] Work Phone: Start: 05-04-2025 End: 00-61-1057Mxwjlqv encounter procedureRikcie Johnson MD-[facility] Work Phone: Start: 04-27-2025 End: 89-15-2319sbydelshwcUostnxf M Hoy MD Work Phone: [facility] Work Phone: Start: 04-27-2025 End: 48-93-1992Pqicylg encounter procedureThsenait Alvares MD-[facility] Work Phone: Start: 04-02-2025 End: 09-33-4400hmgouqkgrcDtpstny M Hoy MD Work Phone: [facility] Work Phone: Start: 04-02-2025 End: 50-45-7612Xalyduq encounter procedureRickie Johnson MD-[facility] Pain [facility] Work Phone: Start: 44-58-3083yfwqehihzjGoncskHugo Atwood MD Facility:[facility]: 03-26-2025 End: 66-03-4862mdgtyoffdrBezpjlv M Hoy MD Work Phone: [facility] Work Phone: Start: 03-26-2025 End: 37-67-0951Gtxixgt encounter procedureVasyl Chicas MD-[facility] Work Phone: start: 03-11-2025 End: 61-91-7400ztsheloqgoErkshin M Hoy MD Work Phone: [facility] Work Phone: Start: 03-11-2025 End: 97-21-5922Xvoclqr encounter procedureRickie Johnson MD-[facility] Pain [facility] Work Phone: Start: 02-26-2025 End: 07-17-2834Poccgkw encounter procedureVasyl Chicas MD-[facility] Work Phone: Start: 02-26-2025 End: 06-09-2791oxrjywomqsIakpzxk M HoyFagreater regional health:[facility] Start: 02-19-2025 End: 07-58-9131Ehrosbz encounter procedureVasyl Chicas MD-[facility] Work Phone: start: 12-25-2024 End: 09-77-7519Zngwqy outpatient visit 15 minutesKaitlin Macdonald CASHIER CHECKER-SOFTWARE DESIGNER Work Phone: [facility] General SurgeryComment on above: Bright red blood per rectum (Primary Dx)Start: 12-25-2024 End: 14-99-7596Icbyqk OnlyNot In System Ref ProvProMedica Physicians General SurgeryStart: 08-11-2024 End: 05-32-3883dckgundxxnCBFYLQVQHGC HASSETTNot AvailableStart: 08-11-2024 End: 66-25-1804Tlxtkr outpatient visit 25 minutesChristopher Shama DO Work Phone: [facility] STATE ROUTEComment on above:Left hand pain (Primary Dx); Primary osteoarthritis of hand, unspecified lateralityStart: 08-04-2024 End: 68-88-7921Pkqpvptel encounterAngelica Dawson CMAProMedica Physicians General SurgeryStart: 07-28-2024 End: 38-55-9758Crcjwpvwxg and management of inpatientRiverside Health Systemtart: 07-22-2024 End: 93-61-9451ukwtkbaatuZpe Pat Phone Call Provider [address] [place] [address] - Pre AdmitStart: 07-22-2024 End: 13-44-0462sngxehkxubWNTFTOO M [facility] Centertart: 07-17-2024 End: 23-66-2523Bxgkpo flowsheetChristopher Shama DO Work Phone: [facility] ROUTEStart: 07-17-2024 End: 68-46-6403Pcpdby flowsheetChristopher Shama DO Work Phone: [facility] ROUTEStart: 07-17-2024 End: 84-71-0510Zmssdkq encounter procedureChristopher Shama DO Work Phone: [facility] STATE ROUTEComment on above:Cervical radiculopathy (Primary Dx); ParesthesiaStart: 07-17-2024 End: 59-00-8751xkjcopxhdfHOETYKAIVWI HASSETTNot AvailableStart: 07-16-2024 End: 98-15-5941Dqywsv outpatient new 30 minutesAudieharrisonshoals hospital Blane Macdonald CASHIER CHECKER-SOFTWARE DESIGNER Work Phone: [facility] General SurgeryComment on above: Vomiting in adult (Primary Dx); History of gastric ulcer; Chronic GERD; Hiatal hernia; Dysphagia, unspecified typeStart: 07-16-2024 End: 11-22-6320bdxmugqzsdSOXGSROMultiCare Health Ambulatory PPG Start: 07-15-2024 End: 13-62-7044jllkgexyqqSHOJJ A HUDDLESTONNot AvailableStart: 07-15-2024 End: 97-71-8481Rvqboj outpatient visit 10 minutesCleve Sheth DO Work Phone: noms CI ORTHOPAEDICSComment on above:Chronic right hip pain (Primary Dx); Sacral insufficiency fracture with routine healing, subsequent encounter; Closed fracture of multiple pubic rami, right, initial encounter ([facility])Start: 07-14-2024 End: 25-83-7569Gkvish flowsheetChristopher Shama DO Work Phone: [facility]TEStart: 07-14-2024 End: 70-36-9681Mduiia flowsheetChristopher Shama DO Work Phone: no[facility] ROUTEStart: 07-14-2024 End: 15-43-4969Jkprjb outpatient new 30 minutesChristopher Shama DO Work Phone: noms [facility] ROUTEComment on above:Paresthesia (Primary Dx)Start: 07-14-2024 End: 95-29-1170dbgwejwpvdNTDWNHWWQKB HASSETTNot AvailableStart: 06-17-2024 End: 21-26-1771Dwlirm flowsheetCleve Sheth DO Work Phone: n[facility] CI ORTHOPAEDICSStart: 06-17-2024 End: 78-59-7857Hgqyvb flowsheetCleve Sheth DO Work Phone: noms CI ORTHOPAEDICSStart: 06-17-2024 End: 29-04-0561Zzplep outpatient visit 25 minutesJabernard Sheth DO Work Phone: noMS CI ORTHOPAEDICSComment on above:Chronic right hip pain (Primary Dx); Sacral insufficiency fracture, initial encounter ([facility]); Closed fracture of multiple pubic rami, right, initial encounter ([facility])Start: 06-17-2024 End: 32-25-7759pxrfthqcbrVUANR A HUDDLESTONNot AvailableStart: 06-13-2024 End: 13-73-1951Irnnictvi department patient visitDOJEISONLAZARA Marmolejo VietMammoth Hospitaltart: 06-12-2024 End: 09-39-4943bhgqoxoerwJEZFV A HUDDLESTONNot AvailableStart: 06-05-2024 End: 00-25-6116Hgttrmxnb encounterSammaadela Case PTNOMS CI PTComment on above:PT Initial [...] to fractures in bones. )Start: 06-05-2024 End: 40-18-0334Yhnszw outpatient visit 15 minutesCleve Sheth DO Work Phone: [facility]OMA ORTHOPAEDICSComment on above:Chronic right hip pain (Primary Dx)Start: 06-05-2024 End: 03-01-0199xuuotelsjeDNZBP A HUDDLESTONNot AvailableStart: 2024 End: 36-05-1819ieeazbprjvFTIMMAdan SHETHNot AvailableStart: 04-01-2024 End: 72-35-6347slxgyidmyoNQVHW A HUDDLESTONNot AvailableStart: 75-86-7986Pkv- patient / Non-visitMD Krzysztof Hoy Work Phone: [facility] Work Phone: Start: 03-26-2024 End: 31-56-8795Umfxfsidr to same day surgery centerMD Krzysztof Hoy Work Phone: [facility] Work Phone: Start: 03-26-2024 End: 01-85-7010tzgrrqbkbpTB Krzysztof M Hoy Work Phone: [facility] Work Phone: Start: 02-19-2024 End: 29-74-1385dpuhvenaxgXQ Krzysztof M Hoy Work Phone: [facility] Work Phone: Start: 02-19-2024 End: 82-46-0443Pwtzhhj encounter procedureMD Krzysztof Hoy Work Phone: [facility] Work Phone: Start: 21-78-1167Dxv-patient / Non-visitMD Krzysztof Hoy Work Phone: [facility] Work Phone: Start: 02-05-2024 End: 31-71-1006Gtxmaxsnx to same day surgery centerMD Krzysztof Thompson Work Phone: [facility] Work Phone: Start: 02-05-2024 End: 74-90-4923tmicovmkidJL Krzysztof Marmolejo Hoanastasia Work Phone: [facility] Work Phone: Start: 36-73-2312Ivh-patient / Non-visitMD Krzysztof Thompson Work Phone: [facility] Work Phone: Start: 01-09-2024 End: 66-77-4495hudkaduhwsVQYE DUCKETTNot AvailableStart: 24-41-6991ajylayyhze JN GARCIA .Facility:K5Akbdb: 01-15-2023 End: 42-80-8600xdvvennshgEJKDXM RODRIGUEZ .Facility:Q3Csvaq: 01-10-2023 End: 97-94-7964cmrpyobkmsIL KRZYSZTOF HOY .Facility:A8Rxipl: 12-15-2022 End: 99-12-2274nlylezbisrUVRSSB RODRIGUEZ .Facility:K3Oilqu: 12-15-2022 [facility] 12-05-2022 End: 29-58-4515trjxbekbqoZT KRZYSZTOF HOY .Facility:M8Jewnh: 11-25-2022 End: 32-58-1036Ircupshsms and management of inpatientDR KRZYSZTOF HOY .Facility:H1 Start: 11-13-2022 End: 52-64-3975zcweopmpelMU KRZYSZTOF HOY .Facility:D8Gnegc: 11-09-2022 End: 33-20-3503kldnxsghfcJX KRZYSZTOF HOY .Facility:D7Zwblb: 10-20-2022 End: 62-81-9489rccpjhqylqGP KRZYSZTOF HOY .Facility:P4Isfav: 10-19-2022 End: 17-15-1788ilhjyiqxllPO KRZYSZTOF HOY .Facility:W8Plehh: 10-18-2022 End: 28-57-9528pjswkjtmebBP KRZYSZTOF HOY .Facility:E8Cghms: 09-25-2022 End: 39-81-8806tfqigqymyyZG KRZYSZTOF HOY .Facility:X5Fxnvf: 07-25-2022 End: 53-59-9707dpcdnrfnwyZV KRZYSZTOF HOY .Facility:M3Unaut: 05-26-2022 End: 69-44-9503mjlzrerodaHW KRZYSZTOF HOY .Facility:W5Sjbjk: 05-25-2022 End: 81-09-8543kdojqlvqhkOG KRZYSZTOF HOY .Facility:V9Wggqg: 05-24-2022 End: 80-03-3309juqnvnkjxiOQ KRZYSZTOF HOY .Facility:B4Xqgrk: 05-11-2022 End: 31-69-1824axlfbnohwbWP KRZYSZTOF HOY .Facility:N9Zghls: 02-14-2022 End: 05-90-1762rnbolacnwnPU KRZYZSTOF HOY .Facility:D9Yaeqz: 11-19-2018 End: 28-85-0330Mtuqyro encounter procedurePROVIDER UNKNOWNFacility:[facility]tart: 11-13-2018 End: 73-09-8586Gxtphlx encounter procedureDEFAULT PHYSICIANFacility:[facility]tart: 10-31-2018 End: 75-62-4916Bmipnyo encounter procedureDEFAULT PHYSICIANFacility:[facility]tart: 09-23-2018 End: 09-91-4996Qxxntoi encounter procedureDEFAULT PHYSICIANFacility:[facility]tart: 09-05-2018 End: 60-07-7714Vtpvrue encounter procedureDEFAULT PHYSICIANFacility:[facility] Procedures DateProcedureProcedure DetailPerforming ClinicianStart: 54-55-8654Goear X-ray of right shoulderKrzysztof Thompson MD Work Phone: [phone]-art: 05-06-3785U-ray of thoracic spine, two views Krzysztof Thompson MD Work Phone: Start: 27-92-4463D-ray of lumbar spine, six views including bending viewsKrzysztof Thompson MD Work Phone: Start: 00-16-0450M-ray of cervical spineDoivis Thompson MD Work Phone: Start: 04-02-7232Rodw energy X-ray absorptiometry Krzysztof Thompson MD Work Phone: Start: 07-17-2024 End: 39-34-0868Lwyuaj emg ea extremty w/paraspinl area completeChristopher Shama DO Work Phone: Start: 85-83-7381Steqa hip unilateral with pelvis 2-3 viewsJames A Meryl DO Work Phone: Start: 84-03-0845MxuhiykdkhvIov In System Ref Prov Start: 15-38-1430Efdmtrmdx colonoscopyMD Krzysztof Thompson Work Phone: Start: 57-10-0122DsflfoaslxkybefgrtcigljopjNJ Krzysztof Hoy Work Phone: Plan of Treatment DateCare ActivityDetailAuthorStart: 85-79-9657MHpF,Tdap and Td Vaccines (2 - Td or Tdap)DTaP,Tdap and Td Vaccines (2 - Td or Tdap)[facility] SystemStart: 68-62-6234Nxttsou ScreeningTobacco ScreeningProMedica Health SystemStart: 99-76-3932Yvyycjc ScreeningTobacco ScreeningProMedica Health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 General Surgery [place] This note was created with the assistance of a speech recognition program. While intending to generate a timely document that accurately reflects the content of the visit, no guarantee can be provided that every grammatical or spelling mistake has been or will be identified or corrected. Thank you for your understanding. TAMIE Reyes 07/16/24 1232 documented in this encounterThe [facility]11-[facility] History of Present illness Narrative* Cleve Sheth, DO - 07/15/2024 10:30 AM EST Images from the original note were not included. HISTORY OF PRESENT ILLNESS: Sheila Mac is an 74 y.o. @ female. Chief complaint RT hip pain RT hip: using calcitonin NS Pt went to [facility] ER 06/13, X-rays done pelvis and lumbar. RX for lidoderm patches given, she states she could hardly walk. RT hip pain x 3-4 months, worsened on 05/31 after going to the grocery store. Denies injury. She hadinjections at [facility] in April without relief. She saw Dr Thompson 06/02 and 06/04, given IM injections-no relief. She is walking better, using rollator. Mild ache in the thigh. Using pain spray daily Saw Dr Thompson 06/02 and 06/04. XR done at [facility] 06/02/24. Using hot icy hot. Given IM torodol, Tramadol RX and PT ordered, XR [place] [facility] 06/05/24, MRI [facility] 06/12/24, [facility] ER 06/13/24, lidoderm patches, calcitonin NS [...] HISTORY: Past Medical History: Diagnosis Date Diabetes ([facility]) Diverticulitis Gastric ulcer GERD (gastroesophageal reflux disease) HTN (hypertension) ([facility]) Osteoporosis ([facility]) Pancreatitis Rheumatic fever ALLERGIES: Allergies Allergen Reactions Iodinated Contrast Media Morphine Penicillins Nsaids Rash VITALS: Visit Vitals Smoking Status Never PHYSICAL EXAM: Ortho Exam RIGHT HIP Using Rollator Strength 4/5 ROM 30 IR and 30 ER IMAGING: June 05, 2024 x-rays from the [place] office AP pelvis and lateral of the right hip demonstrate an intact hip joint space. There are no fractures detected. The bone has an osteopenic appearance.The joint spaces are symmetric. There is no obvious effusion or soft tissue swelling. Impression: No acute findings on x-rays of the right hip Hemal Sheth D.O. MRI of the right hip from the [facility] center. There is a sacral insufficiency [...] of multiple pubic rami, right, initial encounter ([facility]) S32.591A calcitonin, salmon, (Miacalcin) 200 [...] Dr. Sheth/ashley Sheth D.O. documented in this encounterSt. Joseph Medical [id number] History of Present illness Narrative* Raven Sesay [...] headaches. Past Medical History: Diagnosis Date Diabetes ([facility]) Diverticulitis Gastric ulcer GERD (gastroesophageal reflux disease) HTN (hypertension) ([facility]) Osteoporosis ([facility]) Pancreatitis Rheumatic fever Past Surgical [...] wrist extensors , wrist flexor , senior health consultant strength 5/5. LUE Strength deltoid , biceps , triceps , wrist extensors , wrist flexor , senior health consultant strength 5/5. RLE Strength illopsoas, quadriceps, tibialis [...] reflex 0 . Metzger's sign negative. Coordination: Oavqnf-kr-amwy testing and rapid alternating movements are normal [...] plan, and return instructions documented in this encounterSt. Joseph Medical [id number] History of Present illness Narrative* Cleve Sheth DO - 06/17/2024 1:30 PM EDT Images from the original note were not included. HISTORY OF PRESENT ILLNESS: Sheila Mac is an 74 y.o. @ female. Chief complaint RT hip pain RT hip: here for MRI results [facility] 06/12/24 Pt went to [facility] ER 06/13, X-rays done pelvis and lumbar. RX for lidoderm patches given, she states she could hardly walk. RT hip pain x 2-3 months, worsened on 05/31 after going to the grocery store. Denies injury. She hadinjections at [facility] in April without relief. She [...] Thompson 06/02 and 06/04. XR done at [facility] 06/02/24. Using hot icy hot. Given IM torodol, Tramadol RX and PT ordered, XR [place] [facility] 06/05/24, MRI [facility] 06/12/24, [facility] ER 06/13/24, lidoderm patches I reviewed [...] HISTORY: Past Medical History: Diagnosis Date Diabetes ([facility]) Diverticulitis Gastric ulcer GERD (gastroesophageal reflux disease) HTN (hypertension) ([facility]) Osteoporosis ([facility]) Pancreatitis Rheumatic fever ALLERGIES: Allergies [...] IMAGING: June 05, 2024 x-rays from the [place] office AP pelvis and lateral of the right hip demonstrate an intact hip joint space. There are no fractures detected. The bone has an osteopenic appearance.The joint spaces are symmetric. There is no obvious effusion or soft tissue swelling. Impression: No acute findings on x-rays of the right hip Hemal [place] I reviewed an MRI of the right hip from the [place] [facility]. There is a sacral insufficiencyfracture and suspected insufficiency fractures of the right superior and inferior pubic rami. The right hip joint is intact and there are no fractures in the hip. There is loss of articular cartilage in the right hip consistent with arthritis. ASSESSMENT: ICD-10-CM 1. Chronic right hip pain M25.551 G89.29 2. Sacral insufficiency fracture, initial encounter ([facility]) M84.48XA 3. Closed fracture of multiple pubic rami, right, initial encounter ([facility]) S32.591A calcitonin, salmon, (Miacalcin) 200 UNIT/ACT nasal [...] xrays, any issues/concerns follow up sooner. Dr. Shteh obtained h istory and examined the patient, I am acting as scribe for Dr. Sheth/ashley Sheth D.O. documented in this encounterSt. Joseph Medical [id number] History of Present illness Narrative* Cleve Sheth DO - 06/05/2024 1:30 PM EDT Images from the original note were not included. HISTORY OF PRESENT ILLNESS: Sheila Mac is an 74 y.o. @ female. Chief complaint RT hip pain New problem: RT hip pain. Dr Thompsno referral. XR [facility] 06/03/24 RT hip pain x 2-3 months, worsened on 05/31 after going to the grocery store. Denies injury. She hadinjections at [facility] in April without relief. She saw Dr Thompson 06/02 and 06/04, given IM injections-no relief. She is having difficulty walking, using a walker. Pain with WB. Pain in the buttock, hamstringand inner thigh. Pain can be aching and sharp. Difficulty with sit to stand. Pain 1/10 at rest, goes to 10+/10 with WB. 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 Taking TYL, using icy hot. Saw Dr Thompson 06/02 and 06/04. XR done at [facility] 06/02/24. Using hot icy hot. [...] HISTORY: Past Medical History: Diagnosis Date Diabetes ([facility]) Diverticulitis Gastric ulcer GERD (gastroesophageal reflux disease) HTN (hypertension) ([facility]) Osteoporosis ([facility]) Pancreatitis Rheumatic fever ALLERGIES: Allergies [...] the right hip from the [facility] dated May of 2024 slightnarrowing of [...] Dr. Sheth/ashley Sheth D.O. documented in this encounterSt. Joseph Medical [id number] Telephone encounter Note* Telephone Encounter - Bella Saavedra - 06/05/2024 11:40 AM EDT $40.00 copay / Prior auth needed. [facility] [id number] Miscellaneous Notes* Telephone Encounter - Bella Saavedra - 06/05/2024 11:40 AM EDT $40.00 copay / Prior auth needed. documented in this encounterSt. Joseph Medical [id number] Procedure [facility]05-28-2024 Procedure [facility]04-07-2023 NoteCardiology Follow Up Progress Note Chief Complaint: [...] agreeable. She will be (more content not included)...[facility] 12-15-2022 NoteReview of Systems Cardiovascular: Positive for leg swelling. Respiratory: Positive for shortness of breath. Skin: Positive for color change. Neurological: Positive for headaches. All other systems reviewed and are negative.[facility] 07-25-2022 NotePROCEDURE: MRA NECK WO CON [...] DANIEL PINEDA Date: 2022-07-25 13:25[facility] [id number] NotePROCEDURE: XR FOOT LT MIN 3 VIEWS HISTORY: Pain in left foot ; acute plantar pain COMPARISON: None. FINDINGS: BONES:No fracture, acute abnormality, or significant arthropathy. SOFT TISSUES:No visible soft tissue swelling. EFFUSION:None visible. OTHER: Negative. IMPRESSION: 1. No acute abnormality, significant degenerative changes, or findings to account for patient's symptoms. Electronically authenticated by: DANIEL PINEDA Date: 2022-05-11 12:51[facility]06-07-2022 NotePROCEDURE: XR KNEE LT 4V or > COMPARISON: None. HISTORY: Osteoarthritis FINDINGS: BONES:No fracture, acute abnormality, or significant arthropathy. SOFT TISSUES:Negative. No visible soft tissue swelling. EFFUSION:Moderate suprapatellar joint effusion OTHER: Negative. IMPRESSION: Moderate joint effusion Electronically authenticated by: GODWIN BECK Date: 2022-02-14 17:30[facility] HospitalEvaluation noteNo assessment information availableMercy Health [facility] Work Phone: Evaluation note* Diagnosis Onset Date Resolution Status Duodenal diverticulum acuteHiatal herniaacuteIBS (irritable bowel syndrome)acuteScreening for colon cancerHol[facility] Work Phone: Evaluation note* Diagnosis Chronic right hip pain- Primary Sacral insufficiency fracture, initial encounter ([facility]) Closed fracture of multiple pubic rami, right, initial encounter ([facility]) documented in this encounter [facility] HealthcareEvaluation note* Diagnosis Paresthesia- Primary Disturbance of skin sensation documented in this encounter [facility] HealthcareEvaluation note* Diagnosis Chronic right hip pain- Primary Sacral insufficiency fracture with routine healing, subsequent encounter Closed fracture of multiple pubic rami, right, initial encounter ([facility]) documented in this encounter [facility] HealthcareEvaluation note* Diagnosis Cervical radiculopathy- Primary Brachial neuritis or radiculitis nos Paresthesia Disturbance of skin sensation documented in this encounter [facility] HealthcareEvaluation note* Diagnosis Left hand pain- Primary Pain in soft tissues of limb Primary osteoarthritis of hand, unspecified laterality documented in this encounter [facility]* Diagnosis Chronic right hip pain- Primary documented in this encounter [facility] HealthcareEvaluation [facility]* Diagnosis Vomiting in adult- Primary History of gastric ulcer Chronic GERD Hiatal hernia Diaphragmatic hernia without mention of obstruction or gangrene Dysphagia, unspecified type documented in this encounter [facility] Diagnosis Bright red blood per rectum- Primary Hemorrhage of rectum and anus documented in this [facility] Diagnosis Incontinence of feces, unspecified fecal incontinence type- Primary Diverticular stricture ([facility]) documented [facility] this [facility] Author [facility] February 05, 2024 1:08pmNote Date/TimeMay 2023 1:08pm[place] [address] Gastroenterology H&P Signed Patient: Sheila Mac MR#: [id number] : 1950 Acct:[id number] Age/Sex: 73 / F Adm Date: 4 Loc: Room: Type: [facility] Attending Dr: Ben Sanchez MD [...] signed by Ben Sanchez MD> 02/05/24 1308 [facility] Work Phone: History and physical note Author Ben Sanchez [facility] March 26, 2024 10:37amNote Date/TimeJuly 2023 10:37am[place] [address] Gastroenterology H&P Signed Patient: Sheila Mac MR#: [id number] : 1950 Acct:[id number] Age/Sex: 73 / F Adm Date: 4 Loc: Room: Type: [facility] Attending Dr: Ben Sanchez MD [...] <Electronically signed by Ben Sanchez MD> 03/26/[address] [place] [address] Work Phone: Hospital Discharge instructionsAmbulatory Orders* Referral to Orthopedic Surgery Location: None [facility] Work Phone: InstructionsNot on filedocumented in this encounter [facility]ructionsNot on filedocumented in this encounter [facility]InstructionsNot on filedocumented in this encounter [facility] SystemInstructionsNot on filedocumented in this encounter [facility]* Attachments The following attachments cannot be sent through Care Everywhere. * Hemorrhoids (Zambian) documented in this encounterProMedica Health SystemInstructionsNot on file documented in this encounterProMedica Health SystemInstructionsNot on file documented in this encounterProMedica Health SystemReason for referral (narrative)No reason for referral information [facility]Mer[facility] Work Phone: Rewmpi for visit Narrative* Consultation (Routine) - ClosedSpecialtyDiagnoses / ProceduresReferred By ContactReferred To Contact Neurology Diagnoses Brachial plexopathy Ulnar neuropathy of left upper extremity Procedures [place] OFFICE/OUTPATIENT NEW HIGH [facility] 60 MINUTES Cleve Sheth DO [address] [address] Phone: tel: fax:[phone] Daniel Paitño MD [address] [place] [address] Phone: tel: fax: Referral IDSGiuliano DateExpiration DateVisits RequestedVisits [id number] Consult and Treat / [facility] Summary Purpose Family History No [...] 022024 9:53am CONSULT DR NEHAL ORTIZ DONE [facility] 03/02 ust 2024 1:29pm Reason for Visit [...] 022024 9:53am CONSULT DR NEHAL ORTIZ DONE [facility] 03/02 ust 2024 1:29pm 1 mo fu [...] 022024 9:53am CONSULT DR NEHAL ORTIZ DONE [facility] 03/02 ust 2024 1:29pm 1 mo fu trigger points/ consider shoulde r inj May 04, 2025 8:05am Unknown May 13, 2025 10:46am Additional Source Comments INFORMATION SOURCE (unrecogn ized section and content) DATE CREATED AUTHOR 11/24/2018 [facility] DATE CREATED AUTHOR AUTHOR'S ORGANIZ ATION 12/19/2022 [facility] DATE CREATED AUTHOR AUTHOR'S ORGANIZ ATION 01/18/2023 [facility] DATE CREATED AUTHOR AUTHOR'S ORGANIZ ATION 08/04/2024 [facility] DATE CREATED AUTHOR AUTHOR'S ORGANIZ ATION 08/12/2024 [facility] DATE CREATED AUTHOR AUTHOR'S ORGANIZ ATION 04/02/2025 [facility] DATE CREATED AUTHOR AUTHOR'S ORGANIZ ATION 05/15/2025 [facility] DATE CREATED AUTHOR AUTHOR'S ORGANIZ ATION 06/24/2025 [facility] DATE CREATED AUTHOR AUTHOR'S ORGANIZ ATION 07/22/2025 [facility] Care Teams (unrecognized sec tion and [...] Team MemberRelationshipSpecialtyStart DateEnd Date Krzysztof [place] MD [address] [place] [address] [address] - [facility] Medicine01/09/24Team MemberRelationshipSpecialtyStart DateEnd Date Krzysztof [place] MD [address] [place] [address] [facility]/09/24Team MemberRelationshipSpecialtyStart DateEnd Date Krzysztof [place] MD [address] [place] [facility] [address] PCP - GeneralFamily Medicine01/09/24Team MemberRelationshipSpecialtyStart DateEnd Date Krzysztof [place] MD [address] [place] [facility] [address] PCP - GeneralFamily Medicine01/09/24Team MemberRelationshipSpecialtyStart DateEnd Date Krzysztof [place] MD [address] [place] [facility] [place] [address] PCP - GeneralFamily Medicine01/09/24 Raven Sesay DO [address] [place] [address] Referring OwelxvyymEyxymxsnf41/4/24Team MemberRelationshipSpecialtyStart DateEnd Date Krzysztof [place] MD [address] [place] [facility] [place] [address] PCP - GeneralFamily Medicine01/09/24 Raven Sesay DO [address] [place] [address] Referring KegrejtifJgkrbsqip29/4/24Team MemberRelationshipSpecialtyStart DateEnd Date Krzysztof [place] MD [address] [place] [facility] [place] [address] PCP - GeneralFamily Medicine01/09/24 Raven Sesay DO [address] [address] Referring GxinybsiyFuvxqduor05/4/24Team MemberRelationshipSpecialtyStart DateEnd Date Krzysztof [place] MD [address] [place] [address] PCP - GeneralFamily Medicine01/09/24 Raven Sesay DO [address] [address] Referring KnqcijeumXwtpybmmg94/4/24Team MemberRelationshipSpecialtyStart DateEnd Date Krzysztof [place] MD [address] [place] [address] PCP - GeneralFaorly Medicine01/09/24 Raven Sesay DO [address] [place] [address] Referring CpdlatqosKhqbkkvdv40/4/24Team MemberRelationshipSpecialtyStart DateEnd Date Krzysztof [place] MD PCP - General7Team MemberRelationshipSpecialtyStart DateEnd Date Krzysztof [place] MD PCP - General7/02/24Team MemberRelationshipSpecialtyStart DateEnd Date Krzysztof [place] MD PCP - General7/02/24Team MemberRelationshipSpecialtyStart DateEnd Date Krzysztof [place] MD [facility]03/15/17Team MemberRelationshipSpecialtyStart DateEnd Krzysztof Flores MD [facility]03/15/17 Team Status: Inactive Member Role Status Fifi [place] MD Primary Care Provider Active Start: March 11, 2025 End: March 11omas Felter , MDAttending ProviderActiveStart: March 11, 2025 End: March 11, 2025 Team Status: Inactive Member Role Status Fifi [place] MD Primary Care Provider Active Start: March 26, 2025 End: March 26, 2025Dale Ekta Chicas MDAttending ProviderActiveStart: March 26, 2025 End: March 26, 2025 Team Status: Inactive Member Role Status Fifi [place] MD Primary Care Provider Active Start: April 02, 2025 End: April 02omas Felter , MDAttending ProviderActiveStart: April 02, 2025 End: April 02, 2025 Team Status: Inactive Member Role Status Fifi [place] MD Primary Care Provider Active Start: April 27, 2025 End: April 27omas Olexa , MDAttending ProviderActiveStart: April 27, 2025 End: April 27, 2025 Team Status: Inactive Member Role Status Fifi [place] MD Primary Care Provider Active Start: May 04, 2025 End: May 04omas Feltrobert MDAttending ProviderActiveStart: May 04, 2025 End: May 04, 2025 Team Status: Inactive Member Role Status Fifi [place] MD Attending Provider Active Sta rt: May 13, 2025 End: May 13, 2025Team MemberRelationshipSpecialtyStart DateEnd Krzysztof Flores MD [place] [address]Team MemberRelationshipSpecialtyStart DateEnd Krzysztof Flores MD PCP - General03/15/17 Reason for Visit [...] bleeding, last colon with Dr. Sanchez at [facility] in 4Reason CommentsEncopresisBowel Incontinence, last seen 12/25/24 [...] BE BASED ON THE PRIMARY CLINICAL RECORDS. [employer] [facility]. provides no warranty or guarantee of the accuracy or completeness of information in this document.
== END 2025-07-25 13:04 | disposition home or self-care (01) ==
LOC: US 13:03
PROVIDERS: PCP Family Medicine; Visit Provider Family Medicine
DX: N94.89 Other specified conditions associated with female genital organs and menstrual cycle (principal); R10.11 Right upper quadrant pain; K80.20 Calculus of gallbladder without cholecystitis without obstruction; K74.60 Unspecified cirrhosis of liver
CPT/HCPCS: 76705; 76856

== ENCOUNTER 2025-07-29 09:54 | Outpatient (OUT) | payer MEDICARE, SELFPAY ==
--- OUTSIDE RECORDS SUMMARY | 2025-07-28 09:00 | XMS_ITS | Encounter Summary ---
Author Organization [facility] Address [address] [place] [address] Care Team Providers Care Landscape Horticulture Instructor Name Role Phone Elio Sesay DO Unavailable [phone] Alvaro Harp MD Primary Care Provider [phone] Reason for Referral * Clinic-Administered Medication (Routine) - ClosedSpecialtyDiagnoses / ProceduresReferred By ContactReferred To ContactOrthopaedic Surgery Diagnoses Effusion of right knee Internal derangement of right knee Procedures L Inj/Asp: R knee Ronaldo Hernandez PA [address] [place] [address] Phone: tel: fax: Referral IDStatusReasonStart DateExpiration DateVisits RequestedVisits [id number]/18/20255/ Reason for Visit * ReasonCommentsPain Encounter Details DateTypeDepartmentCare Team (Latest Contact Info)Kbzgfgcblnd98/18/2025 9:00 AM ESTOffice Visit [facility] [address] [place] [address] Ronaldo Hernandez PA [address] [place] [address] Acute pain of right knee (Primary Dx); Effusion of right knee; Internal derangement of right knee Social History Tobacco UseTypesPacks/DayYears UsedDateSmoking Tobacco: NeverAlcohol UseStandard Drinks/WeekCommentsNever0 (1 standard drink = 0.6 oz pure alcohol) CommentsUnknownSex and Gender InformationValueDate RecordedSex Assigned at Not on fileLegal DsoNpfics03/01/2023 8:31 PM EDTGender IdentityNot on fileSexual OrientationNot on filedocumented as of this encounter Last Filed Vital Signs Vital SignReadingTime TakenCommentsBlood Pressure--Pulse--Temperature-- Respiratory Rate--Oxygen Saturation--Inhaled Oxygen Concentration--Zhwlds15.4 kg (120 lb)07/28/2025 9:03 AM OCCIfkypj938 cm (5' 3 )07/28/2025 9:03 AM ESTBody Mass Index21.26109/27/2024 9:03 AM ESTdocumented in this encounter Progress Notes * MOOSE Duvall - 07/28/2025 9:00 AM ESTAssociated Order(s): L Inj/Asp: R knee Post-Procedure Diagnose(s): Effusion of right knee; Internal derangement of right knee Images from the original note were not included. Orthopedic Office note: NAME: Sheila Mac : 1950 ([facility]) RT KNEE PAIN ~1.5 WKS. WOKE UP WITH PAIN. NKI. XRAY TODAY RT KNEE EPIC 07/28/25 MRI EXA 06/10/20 HX CORTISONE INJECTIONS HX PARTIAL MEDIAL AND LATERAL MENISECTOMY, SYNOVECTOMY AND ABRASION CHONDROPLASTY- DR GONZALEZ 2016. WALKING UNASSISTED. PAIN ANTERIOR AND MEDIAL. WORSE AT HS. HARD TO SLEEP. +TYL. INTERMITTENT TINGLING IN KNEE. DENIES POPPING, GRINDING. +GIVING OUT. Physical Exam General Appearance: Normal. Respiratory: No acute distress. Musculoskeletal: Right knee shows no signs of infection. No swelling, redness, or warmth noted. Tenderness present mostly on the medial aspect. No evidence of injury, fall, or trauma. Skin: Warm and dry, no rash. Neurological: Normal. Knee Musculoskeletal Exam Gait Antalgic: right Limp: right Inspection Leg length disparity: no discrepancy Right Erythema: none Effusion: mild Edema: none Ecchymosis: none Deformity: none Alignment: normal Palpation Right Increased warmth: none Masses: none Tenderness: present Medial joint line: moderate Medial retinaculum: mild Range of Motion Right Right knee range of motion is normal and full. Active extension: 0 Passive extension: 0 Active flexion: 120 Passive flexion: 125 Range of motion additional comments: + PAIN ON TERMINAL FLEXION AND EXTENSION Strength Right Right knee strength is normal. Extension: 5/5. Extension is affected by pain. Flexion: 5/5. Flexion is affected by pain. Instability Right Instability signs: none - stable Varus stress grade: normal Valgus stress grade: normal Anterior drawer: normal Medial Claribel test: positive Neurovascular Right Right knee neurovascular exam is normal. Pulses - PT: normal Posterior tibial: 2+ Capillary refill: warm and well-perfused Special Signs Right Right knee special signs are normal. J sign: mild Patellar compression: mild Patellar apprehension: mild General Constitutional: appears stated age Labored breathing: no Psychiatric: normal mood and affect Neurological: alert Skin: intact Lymphadenopathy: none Orders Placed This Encounter Procedures L Inj/Asp This order was created via procedure documentation XR knee 1 or 2 views right Reason for exam:: pain L Inj/Asp: R knee on 07/28/2025 9:25 AM Indications: pain Details: 22 G needle, anterolateral approach Medications: 40 mg methylPREDNISolone acetate 40 MG/ML; 1 mL bupivacaine PF 0.5 % Outcome: tolerated well, no immediate complications E UTILIZING ASEPTIC TECHNIQUE PT GIVEN INJECTION IN RIGHT KNEE, NEUROVASC INTACT S/P INJ, TOLERATEDWELL Procedure, treatment alternatives, risks and benefits explained, specific risks discussed. Consent was given by the patient. Patient was prepped and draped in the usual sterile fashion. Results ICD-10-CM 1. Acute pain of right knee M25.561 XR knee 1 or 2 views right 2. Effusion of right knee M25.461 3. Internal derangement of right knee M23.91 Assessment & Plan Right knee pain, mostly medial Osteopenia was discussed. A chondral contusion cannot be ruled out. No injury, fall, or trauma reported. No signs or symptoms of infection. Previous treatment included cortisone injections, which provided relief. The possibility of recurrent meniscal tear cannot be ruled out given the exam findings. Diagnostic plan: If there is no improvement, an MRI will be considered for further evaluation. Treatment plan: A cortisone injection will be administered today. Use of a walker is encouraged to offload the right knee, along with ice and elevation. A wrap or sleeve may be tried for additional support. Clinical decision making: Detailed discussion of risks and benefits of cortisone injection. Follow-up: Recheck progress in 2 weeks. Questions answered in laymen terms at the bedside. The diagnosis, home exercise plan and any ongoing restrictions/ recommendations reviewed. If unable to be reached in office, I recommend evaluation at nearest Emergency Room if any symptoms worsened or new symptoms develop for requiring urgent evaluation. Visit was preformed using [facility] [facility] Co-pilot plant research technician speech recognition. documented in this encounter Plan of Treatment DateTypeDepartmentCare Team (Latest Contact Info)Kpyayqtqzww70/05/2025 8:00 AM ESTOffice Visit [facility] [address] [facility] [place] [address] Ronaldo Hernandez PA [address] [place] [address] documented as of this encounter Procedures Procedure NamePriorityDate/TimeAssociated DiagnosisCommentsPR ARTHROCENTESIS ASPIR&/INJ MAJOR JT/BURSA W/O QAZchfqni54/18/2025 9:25 AM EST Effusion of right knee Internal derangement of right knee XR KNEE 1-2 VIEWS HOUEGGanaxgb87/18/2025 9:07 AM EST Acute pain of right knee documented in this encounter Results * OR ARTHROCENTESIS ASPIR&/INJ MAJOR JT/BURSA W/O US (07/28/2025 9:25 AM EST) Narrative Ronaldo Hernandez PA - 07/28/2025 9:25 AM EST MOOSE Duvall 07/28/2025 9:34 AM L Inj/Asp: R knee on 07/28/2025 9:25 AM Indications: pain Details: 22 G needle, anterolateral approach Medications: 40 mg methylPREDNISolone acetate 40 MG/ML; 1 mL bupivacaine PF 0.5 % Outcome: tolerated well, no immediate complications E UTILIZING ASEPTIC TECHNIQUE PT GIVEN INJECTION IN RIGHT KNEE, NEUROVASC INTACT S/P INJ, TOLERATED WELL Procedure, treatment alternatives, risks and benefits explained, specific risks discussed. Consent was given by the patient. Patient was prepped and draped in the usual sterile fashion. Authorizing ProviderResult TypeResult Maria Antonia Hernandez PAIN CLINIC/BEDSIDE ORDERABLESFinal Result * XR knee 1 or 2 views right (07/28/2025 9:07 AM EST)Anatomical RegionLaterality ModalityLower Extremities, KneeRightRadiographic ImagingSpecimen (Source) Anatomical Location / LateralityCollection Method / VolumeCollection Time Received Time Narrative 07/28/2025 9:18 AM EST Imaging Result: AP and Lateral weight bearing: Bones: The bony structures of the knee, including the distal femur, proximal tibia, and patella, with osteopenia noted. ??Stable alignment. ?There are no fractures, dislocations, or bony lesions noted. Joint Spaces: The joint spaces are well-maintained bilaterally with no evidence of narrowing. Soft Tissues: The surrounding soft tissues appear normal. There is no evidence of soft tissue swelling or calcification. Impression: ? Normal weight-bearing knee X-ray. No acute bony ??process Authorizing ProviderResult TypeResult StatusRonaldo Hernandez PAIMG XR PROCEDURES Final Result documented in this encounter Visit Diagnoses Diagnosis Acute pain of right knee- Primary Effusion of right knee Internal derangement of right knee documented in this encounter Administered Medications Medication OrderMAR ActionAction DateDoseRateSite bupivacaine PF (Marcaine) 0.5 % injection 1 mL 1 mL, Injection, Once PRN Procedure, Starting on Sun07/28/25 at 0925, For 1 dose Indications:Effusion of right knee,Internal derangement of right kneeGiven 07/28/2025 9:25 AM EST1 mL methylPREDNISolone acetate (DEPO-Medrol) injection 40 mg 40 mg, Intra-articular, Once PRN Procedure, Starting on Sun07/28/25 at 0925, For 1 dose Indications:Effusion of right knee,Internal derangement of right kneeGiven 07/28/2025 9:25 AM EST40 mgdocumented in this encounter Care Teams Team MemberRelationshipSpecialtyStart DateEnd Alvaro Harp MD [address] [place] [address] PCP - GeneralFamily Rpnjryhr74/17/25 Elio Sesay DO [address] [id number] Referring OzogonkmsZdbzsjugc10/4/24documented as of this encounter
--- OUTSIDE RECORDS SUMMARY | 2025-07-28 09:10 | XMS_ITS | Encounter Summary ---
Author Organization [facility] Address [address] [facility] [place] [address] Care Team Providers Care Header Boss Name Role Phone Elio Sesay DO Unavailable [phone] Alvaro Harp MD Primary Care Provider [phone] Encounter Details DateTypeDepartmentCare Team (Latest Contact Info)Cgikszgenke25/18/2025 9:10 AM ESTAncillary Procedure [facility] [address] [facility] [place] [address] Arrived Social History Tobacco UseTypesPacks/DayYears UsedDateSmoking Tobacco: NeverAlcohol UseStandard Drinks/WeekCommentsNever0 (1 standard drink = 0.6 oz pure alcohol) CommentsUnknownSex and Gender InformationValueDate RecordedSex Assigned at Not on fileLegal HwbHnvkcg98/01/2023 8:31 PM EDTGender IdentityNot on fileSexual OrientationNot on filedocumented as of this encounter Plan of Treatment DateTypeDepartmentCare Team (Latest Contact Info)Zblghhkqyhg13/05/2025 8:00 AM ESTOffice Visit [facility] [address] [place] [address] Ronaldo Hernandez PA [address] [place] [address] documented as of this encounter Procedures Procedure NamePriorityDate/TimeAssociated DiagnosisCommentsXR KNEE 1-2 VIEWS KDDDPLcnudgp50/18/2025 9:07 AM EST Acute pain of right knee documented in this encounter Results * XR knee 1 or 2 views [...] No acute bony ??process Authorizing ProviderResult TypeResult StatusMatthew Wendy Hernandez PAI XR PROCEDURES Final Result documented in this encounter Visit Diagnoses Not on filedocumented in this encounter Care Teams Team MemberRelationshipSpecialtyStart DateEnd Date Alvaro Harp MD [address] [place] [address] PCP - GeneralFamily Kksqgdot22/17/25 Elio Sesay DO [address] [address] Referring XxefxfvcpGjlvtoexi77/4/24documented as of this encounter
--- OUTSIDE RECORDS SUMMARY | 2025-07-29 10:00 | XMS_ITS | CCD ---
Author Organization [facility] Care Team Providers Care Heeler Name Role Phone PHYSICIAN, DEFAULT Admitting Unavailable [...] Unavailable HOY ., DR BLANKENSHIP Admitting Unavailable [place], DR GODWIN Cardona Consulting Unavailable HOY ., [...] Unavailable HOY ., DR BLANKENSHIP Admitting Unavailable HOAnastasia ., DR BLANKENSHIP Consulting Unavailable JASONY ., DR BLANKENSHIP Attending Unavailable JASONY ., DR BLANKENSHIP Primary Care Unavailable MD Ben Sanchez Attending Provider [phone] MD Krzysztof Thompson Primary Care Provider [phone] [...] Attending Provider Rickie Saucedo MD Attending Provider [phone] Vasyl Chicas MD Referring Provider [phone] Yael Atwood MD Attending UnavailYael Riggs MD Attending UnavailRickie Feliciano MD Attending Provider Krzysztof Thompson MD Attending Provider Hoy, Krzysztof M Primary Care Unavailable Vasyl [...] of OnsetReaction(s) Facility (17 sources)Morphine; Translations: [MORPHINE]Drug Zpjjrkb73-79-2159ItjiiidlKan [facility] Repository (7 sources)NSAIDs; Translations: [NSAIDS (NON-STEROIDAL ANTI-INFLAMMATORY DRUG)] Drug allergy (disorder)82-09-7895QE BleedingThe [facility] (1 source)PenicillinDrug Xmqpbvt93-89-5775Mbr [facility] Repository (1 source)predniSONEDrug Yvxzuiy00-58-9877Mcl [facility] Repository (2 sources)Iodinated Contrast- Oral and IV DyeDrug allergy (disorder)11-11-2014 [facility] Repository (20 sources)Penicillins; Translations: [PENICILLINS]Propensity to adverse reactions to drug (disorder)41-98-0931SjyfQjogyvladoAv[facility] (20 sources)IODINATED CONTRAST MEDIA; Translations: [IODINATED CONTRAST MEDIA] Propensity to adverse reactions to drug (disorder)50-42-7058Mkctxszbxyl, Other (See Comments)[facility] Repository (1 source)levoFLOXacinDrug Akvkhrp36-22-3535Vys [facility] Repository (1 source)meloxicamDrug Vujgdjg34-98-9030Neu [facility] Repository (12 sources)NSAIDS (Non-Steroidal Anti-Inflamma; Translations: [NSAIDS (Non- Steroidal Anti-Inflamma]Propensity to adverse gwmizyzjt26-49-8037EansmglAcmc Healthcare System GlenbeighComment on above:pt has stomach ulcer (20 sources)MorphineDrug Qgiuypm11-74-3937Nnsdwu And Vomiting, VomitingNOMS Healthcare (10 sources)Non-steroidal anti-inflammatory agentPropensity to adverse reactions 76-25-0530Wlkh, GI BleedingNOMS Healthcare (9 sources)Contrast media; Translations: [DYE]Propensity to adverse reactions to drug (disorder)51-91-2462QfogvywiIslHvvssr Repository (9 sources)MORPHOLINE ANALOGUES; Translations: [MORPHOLINE ANALOGUES]Propensity to adverse reactions to drug (disorder)88-64-1443ZveeuilmKgyCegwuz Repository (3 sources)Non-steroidal anti-inflammatory agentPropensity to adverse reactions to tgsi65-85-7050ES [facility]edingPark[facility] (1 source)MorphineDrug Mlzuomb15-88-3694BhakzyaajParkview Health Repository Medications Current Medications MedicationDrug Class(es)DatesSig (Normalized)Sig (Original)acetaminophen 500 mg oral tablet (20 sources)take 1 tablet by mouth every six hours as needed for pain acetaminophen (TYLENOL) 500 mg tablet Take 1 tablet (500 mg total) by mouth every 6 (six) hours as needed for pain. Activeaspirin 81 mg delayed release oral tablet (20 sources)Platelet Aggregation Inhibitor, Nonsteroidal Anti-inflammatory Drug Start: 50-00-4578hgpl 1 tablet by mouth in the morningaspirin 81 mg Take 1 tablet (81 mg total) by mouth in the morning. 02/19/2024 Activeclopidogrel 75 mg oral tablet (20 sources)P2Y12 Platelet InhibitorStart: 45-12-3624pljv 1 tablet by mouth in the morningclopidogreL (PLAVIX) 75 mg tablet Take 1 tablet (75 mg total) by mouth in the morning. 01/28/2024 EqxaahViudqphlbsd-Dcihccrbb-Unvxxqhl (8 sources)Start: 27-30-5700Miewmkxgort-Umeclidin-Vilanter (Trelegy Ellipta) 200-62.5-25 mcg blister with device Active 1 INH INHALATION Daily February 19, 2025 12:00am Complies with drug therapyStart: 84-64-2340zapuqkbkbj 100 mg oral capsule (2 sources)Anti-epileptic AgentStart: 08-11-2024 End: 31-84-6541bkkc 1 capsule by mouth in the morninggabapentin (Neurontin) 100 MG capsule Indications: Left hand pain Take 1 capsule (100 mg) by mouth in the morning and 1 capsule (100 mg) before bedtime. 60 capsule 2 08/11/2024 11/09/2024 Activemetoprolol tartrate 50 mg oral tablet (20 sources)beta-Adrenergic BlockerStart: 43-86-5922trsz 1 tablet by mouth in the morningmetoprolol tartrate (LOPRESSOR) 50 mg tablet Take 1 tablet (50 mg total) by mouth in the morning. 03/27/2024 ActiveStart: 68-28-3911acrrwfakls tartrate (Lopressor) 25 MG tablet 03/27/2024 Activepantoprazole 40 mg delayed release oral tablet (20 sources)Proton Pump InhibitorStart: 01-28-2024 End: 44-22-2301qvlnfw calcitonin 200 unt/actuat nasal spray (16 sources)CalcitoninStart: 06-17-2024 End: 21-50-4528sohb 1 spray(s) nasal route in the morningcalcitonin, salmon, (MIACALCIN) 200 unit/actuation nasal spray Administer 1 spray into alternating n ostrils in the morning. 07/15/2024 08/14/2024 Activesucralfate 1000 mg oral tablet (20 sources)Aluminum ComplexStart: 10-72-8097jasz 1 tablet by mouth four times dailysucralfate (Carafate) 1 g tablet TAKE 1 TABLET BY MOUTH ON AN EMPTY STOMACH FOUR TIMES DAILY 03/18/2024 ActiveStart: 17-44-7416gsce 1 tablet by mouth twice dailyStart: 01-28-2024 End: 62-01-0452iziq 1 tablet by mouth four times dailySucralfate 1 gram tablet Discontinued 1 GM PO Four times daily January 28, 2024 12:00am February 19, 2024 9:15amtiZANidine 2 mg oral capsule (8 sources)Central alpha-2 Adrenergic AgonistStart: 57-85-4507akvx 1 capsule by mouth twice daily as needed Completed/Discontinued Medications MedicationDrug Class(es)DatesSig (Normalized)Sig (Original)atorvastatin 20 mg oral tablet (20 sources)HMG-CoA Reductase InhibitorStart: 01-28-2024 End: 30-16-5014eomi 1 tablet by mouth once daily at bedtimeAtorvastatin 20 mg tablet Discontinued 20 MG PO Daily at bedtime January 28, 2024 12:00am February 19, 2025 2:58pm End: 21-76-6006bsoz 1 tablet by mouth in the morningatorvastatin (LIPITOR) 40 mg tablet Take 1 tablet (40 mg total) by mouth in the morning. 12/25/2024 Discontinued (Discontinued by another clinician)cetirizine hydrochloride 10 mg oral tablet (11 sources)Histamine-1 Receptor AntagonistStart: 01-28-2024 End: 02-91-2538afwt 1 tablet by mouth once daily in the morningCetirizine 10 mg tablet Discontinued 10 MG PO Every morning January 28, 2024 12:00am February 19, 2024 9:13am1 ml denosumab 60 mg/ml prefilled syringe (1 source)RANK Ligand Inhibitor End: 35-80-0185awrkjj 60 mg by subcutaneous injection oncedenosumab (PROLIA) 60 mg/mL syringe injection Inject 60 mg under the skin once. 07/16/2024 Discontin ued (Discontinued by another clinician)lactulose 667 mg/ml oral solution (20 sources)Osmotic LaxativeStart: 02-19-2024 End: 39-83-1490pedz 1 mL by mouth twice dailyLactulose 10 gram/15 mL solution Discontinued 30 ML PO Twice daily 1800 30 February 19, 2024 9:26am August 12, 2024 12:13pmStart: 01-28-2024 End: 86-64-4775jfcz 1 mL by mouth once daily in the morningLactulose 10 gram/15 mL solution Discontinued 15 ML PO Every morning January 28, 2024 12:00am February 9:15amlidocaine 0.05 mg/mg medicated patch (1 source)Antiarrhythmic, Amide Local AnestheticStart: 06-13-2024 End: 37-24-3141qffdg 1 dose transdermal route once daily, then apply 1 dose transdermal route every twelve hourslidocaine (LIDODERM) 5 % Indications: Left hip pain Place 1 patch on the skin daily. Remove & Discard patch within 12 hours or as directed by 30 patch 06/13/2024 07/16/2024 Discontinued (Patient Never Started This Medication)linaclotide 0.145 mg oral capsule (16 sources)Guanylate Cyclase-C AgonistStart: 08-13-2024 End: 64-23-9904txql 1 capsule by mouth once dailyLinaclotide (Linzess) 145 mcg capsule Discontinued 145 MCG PO Daily August 13, 2024 1:00amJun2024 2:58pmStart: 08-12-2024 End: 00-47-6898gcqb 1 capsule by mouth once dailyLinaclotide (Linzess) 72 mcg capsule Discontinued 72 MCG PO Daily August 12, 2024 1:00am August 13, 2024 5:40pmrosuvastatin calcium 20 mg oral tablet (1 source)HMG-CoA Reductase Inhibitor End: 79-62-4204kffj 1 tablet by mouth in the morningrosuvastatin (CRESTOR) 20 mg tablet Take 1 tablet (20 mg total) by mouth in the morning. 07/16/2024 Discontinued (Discontinued by another clinician)Sod Picosulf-Mag Ox-Citric Ac (10 sources)Start: 02-19-2024 End: 09-21-9624csmm 1 dose by mouth once daily in the eveningSod Picosulf-Mag Ox-Citric Ac (Clenpiq) 10 mg-3.5 gram- 12 gram/175 mL solution Discontinued 175 MLPO Daily 175 February 19, 2024 12:00am August 12, 2024 12:12pm take first dose at 3:00 pm the day before colonoscopy, take second dose at 9:00 pm the day before colonoscopy.Start: 30-96-4118ucvg 1 dose by mouth once daily in [...] abdominal pain; Translations: [GENERALIZED ABDOMINAL PAIN] Onset: 29-92-0242OxakwkkfZeymw and unspecified renal failure (1 source)Acute kidney failure, unspecified; Translations: [ACUTE KIDNEY FAILURE UNSPECIFIED]Onset: 56-72-0195FuwcuocqLknmv cerebrovascular disease (3 sources)Cerebral infarction, unspecified; Translations: [Cerebral infarction due to unspecified occlusion or stenosis of left carotid arteries]Onset: 68-76-2854HvqgdvyKctjqmiw reactions (1 source)Radiographic dye allergy status; Translations: [RADIOGRAPHIC DYE ALLERGY STATUS]Onset: 02-57-5473BhhownjkTuychlim of urinary tract (1 source)Personal history of urinary calculi; Translations: [PERSONAL HISTORY OF URINARY CALCULI]Onset: 99-54-7173SdbpdntpMwhonds kidney disease (1 source)Chronic kidney disease, unspecified; Translations: [CHRONIC KIDNEY DISEASE UNSPECIFIED]Onset: 40-11-8234GhxzvfbTwavbjb obstructive pulmonary disease and bronchiectasis (4 sources)Chronic obstructive pulmonary disease, unspecified; Translations: [COPD UNSPECIFIED]Onset: 91-53-9303MvgonhtGfduhafqtk heart failure; nonhypertensive (20 sources)Unspecified diastolic (congestive) heart failure; Translations: [Acute combined systolic (congestive) and diastolic (congestive) heart failure] Onset: 26-59-9139ItdvbddRdaczaqh atherosclerosis and other heart disease (15 sources)Coronary atherosclerosis; Translations: [Atherosclerotic heart disease of [place] coronary artery without angina pectoris]Onset: 02-11-2010 69-76-4029YxgnrdyMclrrsrvgi and other anemia (1 source)Anemia, unspecified; Translations: [ANEMIA UNSPECIFIED]Onset: 88-90-0956JmkkaidlUpxaptsbio and other anemia (1 source)Iron deficiency anemia, unspecified; Translations: [IRON DEFICIENCY ANEMIA UNSPECIFIED]Onset: 47-62-6561WglkgzfaUqmsttjj mellitus without complication (16 sources)Type 2 diabetes mellitus without complications; Translations: [Diabetes mellitus without complication]Onset: 044129-69-1525Urihshg Diabetes mellitus without complication (2 sources)Prediabetes; Translations: [Other abnormal glucose]Onset: 11-14-2022 EpisodicDisorders of lipid metabolism (17 sources)Pure hypercholesterolemia, unspecified; Translations: [Hyperlipidemia, unspecified]Onset: 464043-54-8003HvcknjpRjzwqhmhcllhrc and diverticulitis (20 sources)Diverticulum of duodenum; Translations: [Diverticulosis of small intestine without perforation or abscess without bleeding]Onset: 09-12-2018 15-19-4986PpdnasrMjldgqnqii disorders (20 sources)Gastro-esophageal reflux disease without esophagitis; Translations: [Gastroesophageal reflux disease]Onset: 849539-51-2856BgyxuedDzjznidxf hypertension (6 sources)Essential (primary) hypertension; Translations: [ESSENTIAL (PRIMARY) HYPERTENSION]Onset: 90-31-8157BkqljvjVogaz and electrolyte disorders (2 sources)Dehydration; Translations: [Hyperkalemia]Onset: 00-72-6159Gxodumws Gastroduodenal ulcer (except hemorrhage) (6 sources)Gastric ulcer; Translations: [Gastric ulcer, unspecified as acute or chronic, without hemorrhage orperforation]63-81-2197MwcvbskPjseihwtifrvc symptoms and ill-defined conditions (1 source)Personal history of urinary (tract) infections; Translations: [PERS HX URINARY TRACT INFECTIONS]Onset: 15-40-5833BexlxohkHcnpp valve disorders (1 source)Rheumatic tricuspid insufficiency; Translations: [RHEUMATIC TRICUSPID INSUFFICIENCY]Onset: 35-00-3589EscsqtwAsqyvmfufqub with complications and secondary hypertension (5 sources)Hypertensive heart disease with heart failure; Translations: [Hypertensive chronic kidney disease with stage 1 through stage 4 chronic kidney disease, or unspecified chronic kidney disease]Onset: 00-22-6574Afikhjq Intestinal obstruction without hernia (3 sources)Stricture of intestine; Translations: [Other intestinal obstruction unspecified as to partial versus complete obstruction]Onset: 06-23-2025 53-85-2400HwoxwxyuZpyyb disorders and dislocations; trauma-related (15 sources)Derangement of right knee; Translations: [Unspecified internal derangement of right knee]Onset: 712152-23-0764QpdsqpnBqptjje and fatigue (1 source)Chronic fatigue, unspecified; Translations: [CHRONIC FATIGUE UNSPECIFIED]Onset: 45-93-3613CfudjpwMxmvjby and fatigue (4 sources)Other fatigue; Translations: [OTHER FATIGUE]Onset: 04-04-9514Ivgrcrbr Nonspecific chest pain (5 sources)Chest pain, unspecified; Translations: [CHEST PAIN UNSPECIFIED]Onset: 00-14-5271VtfkawhkWnbhazdqnzv deficiencies (1 source)Vitamin D deficiency, unspecified; Translations: [VITAMIN D DEFICIENCY UNSPECIFIED]Onset: 69-30-8760TwsywisOzyrdogme or stenosis of precerebral arteries (5 sources)Occlusion and stenosis of unspecified carotid artery; Translations: [Occlusion and stenosis of bilateral carotid arteries]Onset: 96-78-2929Npsxrjt Osteoarthritis (18 sources)Unspecified osteoarthritis, unspecified site; Translations: [Osteoarthritis of left knee joint]Onset: hronic Osteoporosis (20 sources)Age-related osteoporosis without current pathological fracture; Translations: [Osteoporosis]Onset: 059124-34-6332WuxpeujUfjgn acquired deformities (20 sources)Lumbar spondylolisthesis; Translations: [Spondylolisthesis, lumbar region]96-37-1034NgglowvgZtauc aftercare (2 sources)residential (current) use of aspirin; Translations: [CONVEYOR MECHANIC (CURRENT) USE OF ASPIRIN]Onset: 57-27-7810YbtqrytkFlxzk aftercare (1 source)Other fdc (current) drug therapy; Translations: [OTH HALF-WAY CURRENT DRUG THERAPY]Onset: 93-35-7509KqjgbphmLlnoc circulatory disease (1 source)Personal history of transient ischemic attack (TIA), and cerebral infarction without residual deficits; Translations: [PERS HX TIA AND CI NO RESID DEFICIT]Onset: 96-02-4281SdktijwoGvkae connective tissue disease (4 sources)Pain in left foot; Translations: [PAIN IN LEFT FOOT]Onset: 01-15-2023 EpisodicOther connective tissue disease (1 source)Other specified soft tissue disorders; Translations: [OTHER SPEC SOFT TISSUE DISORDERS]Onset: 97-22-9788KrticdikBiabf connective tissue disease (1 source)Fibromyalgia; Translations: [FIBROMYALGIA]Onset: 94-94-1251Hmkhpaku Other connective tissue disease (2 sources)Pain of left hand; Translations: [Pain in left hand]08-11-2024 EpisodicOther connective tissue disease (20 sources)Muscle pain; Translations: [Myalgia, unspecified site]03-11-2025 EpisodicOther fractures (4 sources)Fracture of multiple pubic rami; Translations: [Other specified fracture of right pubis, initial encounter for closed fracture]06-17-2024 EpisodicOther gastrointestinal disorders (10 sources)Irritable bowel syndrome; Translations: [Irritable bowel syndrome without diarrhea]86-99-1247AeqhikeXqchb gastrointestinal disorders (2 sources)Irritable bowel syndrome without diarrhea; Translations: [Irritable bowel syndrome]29-24-5083BisicwpVjdbt gastrointestinal disorders (8 sources)Irritable bowel syndrome characterized by constipation; Translations: [Irritable bowel syndrome with constipation]40-00-0633NmyiatbKfjdx gastrointestinal disorders (2 sources)Incontinence of feces; Translations: [Full incontinence of feces] 60-95-3569RmyclofhKagvj gastrointestinal disorders (1 source)Full incontinence of feces; Translations: [Full incontinence of feces] Onset: 32-56-5543PkexxmvbEpdtt gastrointestinal disorders (1 source)EncopresisOnset: 21-73-9643BsxwbadpDsffi hematologic conditions (4 sources)Other specified abnormalities of plasma proteins; Translations: [OTH SPEC ABNORM PLASMA PROTEINS]Onset: 59-09-5932AyurnsmpWtmmn hereditary and degenerative nervous system conditions (1 source)Restless legs syndrome; Translations: [RESTLESS LEGS SYNDROME]Onset: 40-14-5957MjbnvswHhgpz lower respiratory disease (6 sources)Shortness of breath; Translations: [SHORTNESS OF BREATH]Onset: 18-98-5017VpjvnhzzLmtdg lower respiratory disease (3 sources)Dyspnea, unspecified; Translations: [Dyspnea, unspecified]Onset: 12-87-9484PqkwivitFvisc lower respiratory disease (1 source)Personal history of pneumonia (recurrent); Translations: [PERSONAL HX OF PNEUMONIA RECURRENT]Onset: 82-25-3065IhnfwgitUgmwe nervous system disorders (3 sources)Aphasia; Translations: [APHASIA]Onset: 20-86-6126LhlfyvlUzbhr nervous system disorders (15 sources)Disorder of autonomic nervous system; Translations: [Disorder of the autonomic nervous system, unspecified]Onset: 414852-67-9203VjaromePpura nervous system disorders (20 sources)Chronic pain; Translations: [Other chronic pain]58-50-8352Ejarked Other nervous system disorders (1 source)Ataxia, unspecified; Translations: [ATAXIA UNSPECIFIED]Onset: 80-12-8040BzcpnmypFpqsl nervous system disorders (3 sources)Paresthesia; Translations: [Paresthesia of skin]06-32-8079Ytojbrkp Other non-traumatic joint disorders (1 source)Pain in left ankle and joints of left foot; Translations: [PAIN IN LEFT ANKLE]Onset: 80-79-8284DsornunyXfuyq non-traumatic joint disorders (7 sources)Hip pain; Translations: [Pain in right hip]Onset: 06-13-2024 14-54-7387SdqtjmzcIkmdf non-traumatic joint disorders (1 source)Pain in left hip; Translations: [Pain in left hip]Onset: 06-13-2024 EpisodicOther non-traumatic joint disorders (13 sources)Pain in right shoulder; Translations: [Right shoulder pain]Onset: 716435-04-1828YxdddguzUnuaz screening for suspected conditions (not mental disorders or infectious disease) (18 sources)Abnormal result of other cardiovascular function study; Translations: [Other specified abnormal findings of blood chemistry]Onset: 606635-84-5900QomwskuyEanki skin disorders (4 sources)Nonscarring hair loss, unspecified; Translations: [NONSCARRING HAIR LOSS UNSPECIFIED]Onset: 61-84-0162XduszpavYtqrd upper respiratory infections (1 source)Acute sinusitis, unspecified; Translations: [ACUTE SINUSITIS UNSPECIFIED]Onset: 79-17-8134UeewrldzWqeiatbcft disorders (not diabetes) (20 sources)Other chronic pancreatitis; Translations: [Chronic pancreatitis] Onset: 695766-38-4602DmigoziTilgvmeztecc fracture (4 sources)Stress fracture of sacrum; Translations: [Pathological fracture, other site, initial encounter for fracture]75-74-6391LvtvdqdpFawyqqez codes; unclassified (1 source)Acquired absence of both cervix and uterus; Translations: [ACQUIRED ABSENCE BOTH CERVIX AND UTERUS]Onset: 66-38-2737ScdkpfrbBigbeuzn codes; unclassified (1 source)Personal history of other specified conditions; Translations: [PERSONAL HISTORY OTH SPEC CONDITION]Onset: 25-07-3498ZbicohweNeqkumnv codes; unclassified (5 sources)Edema, unspecified; Translations: [EDEMA UNSPECIFIED]Onset: 59-48-9105EufrgacdDvnoenvq codes; unclassified (6 sources)Postmenopausal state; Translations: [Asymptomatic menopausal state] 34-68-1685CjcevyqbRwtukgchbae; intervertebral disc disorders; other back problems (20 sources)Degeneration of lumbar intervertebral disc; Translations: [Degeneration of lumbar intervertebral disc]Onset: hronic Spondylosis; intervertebral disc disorders; other back problems (20 sources)Cervical radiculopathy; Translations: [Radiculopathy, cervical region]Onset: 961591-84-6843BlifjdwuSndrjvoduaxw (2 sources)ABN STRESSOnset: 03-36-2902Stkvmdadyeon (1 source)CHRN KIDNEY DISEASE STG 3 UNSP; Translations: [CHRN KIDNEY DISEASE STG 3 UNSP]Onset: 30-13-5600Maichsoibram (1 source)CONTACT W/AND (SUSP) EXPOS COVID-19; Translations: [CONTACT W/AND (SUSP) EXPOS COVID-19]Onset: 97-87-4372Rselpswwdnpq (1 source)COUGH, UNSPECIFIED; Translations: [COUGH, UNSPECIFIED]Onset: 84-69-8563Ahakyxmakkuz (1 source)PERSONAL HISTORY OF COVID-19; Translations: [PERSONAL HISTORY OF COVID-19]Onset: 03-75-5217Bynwjotrdgmu (1 source)PAIN RT HIPOnset: 49-80-9477Cixikghghjpj (1 source)M54.6 - Pain in thoracic spineUnclassified (4 sources)R93.7 - Abnormal findings on diagnostic imaging of other parts of musculoskeletal systemViral infection (1 source)COVID-19; Translations: [COVID-19]Onset: 09-30-2022 Past or Other Problems Problem ClassificationProblemDateDocumented DateEpisodic/ChronicAbdominal hernia (16 sources)Diaphragmatic hernia without obstruction or gangrene; Translations: [Hiatal hernia]Onset: 002484-95-6762KegmujhkSdjcililiuipnx ulcer (except hemorrhage) (2 sources)H/O: gastric ulcer; Translations: [Personal history of peptic ulcer disease]Onset: 098725-14-1184NpdegekxTyzmijzqcpcunexf hemorrhage (10 sources)Gastrointestinal hemorrhage; Translations: [Hemorrhage of anus and rectum]Onset: 352587-23-5668FxixuctiOjqlny and vomiting (2 sources)Vomiting; Translations: [Vomiting, unspecified]Onset: 07-16-2024 68-09-0571RlumxnzoLmyce bone disease and musculoskeletal deformities (15 sources)Costal chondritis; Translations: [Chondrocostal junction syndrome [Tietze]]Onset: 008839-26-2363QiwgpycrNones gastrointestinal disorders (4 sources)Constipation, unspecified; Translations: [CONSTIPATION UNSPECIFIED] Onset: 95-64-7005GkhxfitnSjdjx gastrointestinal disorders (1 source)Dysphagia; Translations: [Dysphagia, unspecified]27-37-4546Wgmxwelb Other gastrointestinal disorders (1 source)Dysphagia, unspecified; Translations: [Dysphagia, unspecified]Onset: 40-06-0047JasduawnPacfp gastrointestinal disorders (1 source)HeartburnOnset: 86-22-5586UjuzralkRuduz nervous system disorders (4 sources)Dysarthria and anarthria; Translations: [DYSARTHRIA AND ANARTHRIA] Onset: 59-99-3761Mwzgdnap Results Test NameValueInterpretationReference RangeFacilityUrine Cultureon 05-13-2025 Bacteria identified Cx Nom (U)ORGANISM: Escherichia coli (O:ESCCOL) [place] Count 75,000 Aerobic RAIZA Charge (NMIC56) SUSCEPTIBILITY [...] RESISTANT TO ALL B-LACTAM DRUGS. PERFORMED BY: [facility] [address] [place] [address] PATHOLOGIST SPORTS MANAGEMENT INTERN ARMINDA JUAN M.D.[facility] Physician GroupComment on above: Performed By: #### CUU #### [facility] [address] [place] [address] USAX-ray reportOrdered By: Elian Luna on 70-98-4007Nwkmo reportBETHESDA NORTH [facility] [address] [place] [address] XRay Report Signed Patient: Sheila Mac MR#: [id number] : 1950 Acct:[id number] Age/Sex: 74 / F ADM Date: 5 Loc: [facility] Room: Type: [facility] Attending Dr: Rickie Saucedo MD Copies [...] 6:13 PM Dictation Location: RADIO-PC-20 Transcribed By: [facility] 04/02/251812 Dictated By: Elian Luna DO 04/02/251811 Signed By: 04/02/251812 [facility] min 2V*on 10-65-6353BH shoulder RT min 2V*[facility] [address] [place] [address] XRay Report Signed Patient: Sheila Mac MR#: [id number] : 1950 Acct:[id number] Age/Sex: 74 / F ADM Date: 04/02/25 [...] 6:13 PM Dictation Location: RADIO-PC-20 Transcribed By: [facility] 04/02/251812 Dictated By: Elian Luna DO 04/02/251811 Signed By: 04/02/[address] [place] [address] Physician GroupX-ray reportOrdered By: Ling Fields on 75-31-4858Xqdln reportBETHESDA NORTH HOSPITAL [facility] [address] [place] [address] XRay Report Signed Patient: Sheila Mac MR#: [id number] : 1950 Acct:[id number] Age/Sex: 74 / F ADM Date: 5 Loc: [facility] Room: Type: REG CLI Attending Dr: Rickie Saucedo MD Copies to: Rickie Sauceod MD~ Ordering Provider: Rickie Saucedo MD Date [...] Fields M.D. 03/11/2025 12:01 PM Dictation Location: [place] [address] Transcribed By: [facility] 03/11/25 1201 Dictated By: Ling Fields MD 03/11/25 1158 Signed By: 03/11/25 1201 [facility] Work Phone: XR thoracic spine 2Von 46-07-1465BN thoracic spine 2V [facility] [address] [place] [address] XRay Report Signed Patient: Sheila Mac MR#: [id number] 1859 : 1950 Acct:[id number] Age/Sex: 74 / F ADM Date: 03/11/25 Loc: [facility] Room: Type: [facility] Attending Dr: Rickie Saucedo MD Copies [...] Fields M.D. 03/11/2025 12:01 PM Dictation Location: [facility] Transcribed By: [facility] 03/11/25 1201 Dictated By: Ling Fields MD 03/11/25 1158 Signed By: 03/11/25 1201[facility] GroupXR cerv spine AP/LAT/FLX/EXTon 76-87-6936SD cerv spine AP/LAT/FLX/EXT[facility] [place] [address] [place] [address] XRay Report Signed Patient: Sheila Mac MR#: [id number] 1859 : 1950 Acct:[id number] Age/Sex: 74 / F ADM Date: 02/26/25 Loc: [place] Room: Type: [facility] Attending Dr: Vasyl Chicas MD Copies to: [...] Luna M.D. 02/26/2025 12:52 PM Dictation Location: [facility] Transcribed By: LAVON 02/26/25 1252 Dictated By: Elian Luna DO 02/26/25 1249 Signed By: 02/26/25 1252[facility] GroupXR lumbar spine 6V w bendingon 14-92-1016DH lumbar spine 6V [facility] [place] [address] [place] [address] XRay Report Signed Patient: Sheila Mac MR#: [id number] 1859 : 1950 Acct:[id number] Age/Sex: 74 / F ADM Date: 02/26/25 Loc: [place] Room: Type: [facility] Attending Dr: Vasyl Chicas MD Copies to: [...] Luna M.D. 02/26/2025 2:14 PM Dictation Location: [place] [address] Transcribed By: LAVON 02/26/25 1414 Dictated By: Elian Luna DO 02/26/25 1411 Signed By: 02/26/25 1414[facility]ician GroupSurgical Pathologyon 07-28-2024 Surgical PathologyNormalFirelands Regional Medical Centerca [facility] HospitalComment on above:Result Comment: [employer] [facility] [address] [place] [address] Surgical Pathology Consultation Patient Name:SHEILA MAC ADOB:1950 (Age: 74)Gender:FTaken:07/28/2024eported:07/31/2024hysician(s):Nidia White MD ([phone])Copy To: Rec. #:[id number]: #10 [id number] Final Pathologic Diagnosis 1. Duodenum biopsy first portion: Duodenal mucosa with no significant histopathologic changes. No active inflammation, celiac disease, parasites, granuloma or atypia. 2. Antrum biopsy: Gastric antral mucosa with no significant histopathologic changes. No intestinal metaplasia or dysplasia. No Helicobacter pylori organisms are seen on routine sections. Report Electronically Signed Out wak/07/31/2024Rodriguez Vargas MD [place] [address], License number: [id number]. Clinical History Vomiting, gastroesophageal reflux, dysphagia Gross Description 1. Received in formalin labeled ASLINGER, #1: Duodenum is a single hathaway bit of soft tissue, 0.2 cmin greatest dimension. Filtered and submitted in a single cassette. (1, ns, [id number], m7) MG 2. Received in formalin labeled ASLINGER, #2: Antrum is a single hathaway bit of soft tissue, 0.3 cm in greatest dimension. Filtered and submitted in a single cassette. (1, ns, [id number], m7) MG [facility]/07/28/2024GR Specimen(s) Received 1: Duodenum biopsy first portion 2: Antrum biopsy Fee Codes(s): 1; 84359 2; 82345EMU 1 Extremeityon 95-91-7008N1 radiculopathy on the left, moderatePer[facility] HealthcareNVC 5-6 Nerveson 13-29-4960X8 radiculopathy on the left, moderatePerry County Memorial Hospital HealthcareXR HIP LT 2-3 VIEWS W OR WO PELVISon 60-44-0960PW HIP LT 2-3 VIEWS W OR WO [...] by Rod Muller MD on 06/13/2024 10:24 [facility]XR SP[facility] LUMBAR 2 OR 3 VWSon 70-36-3825OC SPINE LUMBAR 2 OR 3 VWSXR SPINE [...] by Rickie Gonzales MD on 06/13/2024 10:20 [facility] HospitalMR HIP RIGHT WO IV CONTRASTon 59-05-6578UR HIP RIGHT WO IV CONTRASTEXAM: MR HIP [...] x-rays of the right hip Hemal Sheth D.O.[facility] HealthcareRadiology Study observation (narrative)[facility] HealthcareColonoscopyOrdered By: Kera George on 03-26-2024 [facility] HospitalUS AYESHA DOP LEG LTon 45-39-9369QM AYESHA DOP LEG LT EXAMINATION: US AYESHA [...] Electronically authenticated by: DANIEL PINEDA Date: 2023-01-15 08:25[facility] SystemXR ANKLE LT MIN 3 Von 13-63-3631JY ANKLE LT MIN 3 VEXAM: XR FOOT [...] Electronically authenticated by: GONZALEZ PATEL Date: 2023-01-15 07:[address] [place], [place] [address]VITAMIN B1 (THIAMINE)on 29-97-7437Suc. B1, Whole Ekqhg962.1 nmol/RCvacpe02.5-200.0The [facility] HospitalComment on above:Performed By: #### CBC #### [facility] [address] [place] [address] Dr. Ekta Vaughan 56-38-9865Tlgyiciicua peptide B (Bld) [Mass/Vol]980.0 pg/mL Critically high<=900.0The [facility] HospitalComment on above:Performed By: #### CVDTBH #### [facility] [address] [place] [address] Dr. Ekta Agarwal AUTO DIFFon 13-90-3077KZWM #0.1 103/ulNormal0.0-0.1[facility] HospitalComment on above:Performed By: #### CMP #### [facility] [address] [place] [address] Dr. Ekta FunkBasophils/100 WBC (Bld)1.0 %Normal0.2-2.0The [facility] Comment on above:Performed By: #### CMP #### [facility] [address] [place] [address] Dr. Ekta Anthony #0.4 103/ulNormal0.0-0.7The [facility] HospitalComment on above: Performed By: #### CMP #### [facility] [address] [place] [address] Dr. Ekta Abebeosinophils/100 WBC (Bld)3.7 %Normal0.9-7.0[facility] Comment on above:Performed By: #### CMP #### [facility] [address] [place] [address] Dr. Ekta Abeberythrocyte distribution width (RBC) [Ratio]13.2 %Psiktr13.0-15.0 [facility] HospitalComment on above:Performed By: #### CMP #### [facility] [address] [place] [address] Dr. Ekta FunkHematocrit (Bld) [Volume fraction]35.1 %Critically low36.0-48.0 [facility] HospitalComment on above:Performed By: #### CMP #### [facility] [address] [place] [address] Dr. Ekta FunkHemoglobin (Bld) [Mass/Vol]11.3 g/dLCritically low12.0-16.0The [facility] HospitalComment on above:Performed By: #### CMP #### [facility] [address] [place] [address] Dr. Ekta Olivares #0.04 10e3/ulCritically high0.00-0.03The [facility] Comment on above:Performed By: #### CMP #### [facility] [address] [place] [address] Dr. Ekta Olivares %0.4 %Normal0.0-0.5ThMercy Health Tiffin HospitalComment on above: Performed By: #### CMP #### [facility] [address] [place] [address] Dr. Ekta LundbergH #2.0 103/ulNormal1.2-3.8The [facility] HospitalComment on above:Performed By: #### CMP #### [facility] [address] [place] [address] Dr. Ekta Nettlesmphocytes/100 WBC (Bld)20.8 %Eoqsxi16.5-60.0The [facility] HospitalComment on above:Performed By: #### CMP #### [facility] [address] [place] [address] Dr. Ekta Beckham DIFF REQNONormalThe [facility] HospitalComment on above: Performed By: #### CMP #### [facility] [address] [place] [address] Dr. Ekta Oconnor (RBC) [Entitic mass]32.3 tjKtjsfx18.7-34.0The [facility] HospitalComment on above:Performed By: #### CMP #### [facility] [address] [place] [address] Dr. Ekta cOonnor (RBC) [Mass/Vol]32.2 g/yQNzzjwg01.9-35.2The [facility] HospitalComment on above:Performed By: #### CMP #### [facility] [address] [place] [address] Dr. Ekta Estevez (RBC) [Entitic vol]100.3 fLCritically high81.0-99.0The [facility] HospitalComment on above:Performed By: #### CMP #### [facility] [address] [place] [address] Dr. Ekta Rivas #0.8 103/ulNormal0.3-0.8The [facility] HospitalComment on above:Performed By: #### CMP #### [facility] [address] [place] [address] Dr. Ekta Perkinsocytes/100 WBC (Bld)7.9 %Normal1.7-12.0The [facility] Comment on above:Performed By: #### CMP #### [facility] [address] [place] [address] Dr. Ekta Salazar #6.4 103/ulNormal1.4-6.5The [facility] HospitalComment on above:Performed By: #### CMP #### [facility] [address] [place] [address] Dr. Ekta Dimasutrophils/100 WBC (Bld)66.2 %Iaaixg44.0-75.0The [facility] HospitalComment on above:Performed By: #### CMP #### [facility] [address] [place] [address] Dr. Ekta Trevino mean volume (Bld) [Entitic vol]9.6 fLNormal9.5-13.5The [facility] HospitalComment on above:Performed By: #### CMP #### [facility] [address] [place] [address] Dr. Ekta DriverT255 103/huIxtrfv311-040Ria [facility] HospitalComment on above: Performed By: #### CMP #### [facility] [address] [place] [address] Dr. Ekta FunkRBC3.50 106/ulCritically low4.20-5.40The [facility] HospitalComment on above:Performed By: #### CMP #### [facility] [address] [place] [address] Dr. Ekta FunkWBC9.7 103/ulNormal4.0-11.0The [facility] HospitalComment on above: Performed By: #### CMP #### [facility] [address] [place] [address] Dr. Ekta Castaneda 75-77-4325BRE [Mass/Vol]mg/LNormal<=1.0The [facility] HospitalComment on above:Performed By: #### CBC #### [facility] [address] [place] [address] Dr. Ekta Correa THYROXINE INDEX T7on 41-63-6332XUW0.77Dtklkk1.30-4.50The [facility] HospitalComment on above:Performed By: #### CBC #### [facility] [address] [place] [address] Dr. Ekta FunkT3U32.0 %Jmnseu00.0-39.0The [facility] HospitalComment on above: Performed By: #### CBC #### [facility] [address] [place] [address] Dr. Ekta FunkT4 [Mass/Vol]8.20 ug/dLNormal4.80-13.90The [facility] Comment on above:Performed By: #### CBC #### [facility] [address] [place] [address] Dr. Ekta Shannon 91-50-8394Ukkh [Mass/Vol]61.0 ug/bYDsaumf40.0-170.0The [facility] HospitalComment on above:Performed By: #### B12FOL, VITAD, IRON #### [facility] [address] [place] [address] [address] Ekta CarrilloF 14(COMP METB)on 51-82-1595Dybxjuu [Mass/Vol]2.9 g/dL Critically low3.4-5.0The [facility] HospitalComment on above:Performed By: #### CVDTBH #### [facility] [address] [place] [address] [address] Ekta FunkAlbumin/Globulin [Mass ratio]0.6 {ratio}NormalThe [facility] HospitalComment on above:Performed By: #### CVDTBH #### [facility] [address] [place] [address] [address] Ekta Cowart [Catalytic activity/Vol]101 U/NLfvone90-082Cqm [facility] HospitalComment on above:Performed By: #### CVDTBH #### [facility] [address] [place] [address] [address] Ekta Mccormick [Catalytic activity/Vol]16 U/MOoiwox43-61Vsi [facility] HospitalComment on above:Performed By: #### CVDTBH #### [facility] [address] [place] [address] [address] Ekta Harrison gap [Moles/Vol]14.6 mmol/LNormalThe [facility] Comment on above:Performed By: #### CVDTBH #### [facility] [address] [place] [address] [address] Ekta Gonzalez [Catalytic activity/Vol]15 U/ATfmocy32-95Jsk [facility] HospitalComment on above:Performed By: #### CVDTBH #### [facility] [address] [place] [address] [address] Ekta FunkBilirubin [Mass/Vol]0.4 mg/dLNormal0.2-1.0The [facility] Comment on above:Performed By: #### CVDTBH #### [facility] [address] [place] [address] [address] Ekta FunkCalcium [Mass/Vol]9.2 mg/dLNormal8.5-10.1The [facility] Comment on above:Performed By: #### CVDTBH #### [facility] [address] [place] [address] [address] Ekta FunkChloride [Moles/Vol]107 mmol/EQpjiqr45-900Cdo [facility] Comment on above:Performed By: #### CVDTBH #### [facility] [address] [place] [address] Dr. Ekta FunkCO2 [Moles/Vol]24.4 mmol/YVdhgvw10.0-32.0The [facility] Comment on above:Performed By: #### CVDTBH #### [facility] [address] [place] [address] Dr. Ekta FunkCreatinine [Mass/Vol]2.02 mg/dLCritically high0.55-1.02The [facility] HospitalComment on above:Performed By: #### CVDTBH #### [facility] [address] [place] [address] Dr. Ekta AbebeGFR-AF XINTGHMK48 mL/min/1.98p4Kncvqlculj low>=60The [facility] HospitalComment on above:Performed By: #### CVDTBH #### [facility] [address] [place] [address] [address] Ekta Ro-NON AF VZDKWYDQ03 mL/min/1.41i8Xjatapmqil low>=60The [facility] HospitalComment on above:Performed By: #### CVDTBH #### [facility] [address] [place] [address] Dr. Ekta FunkGlobulin (S) [Mass/Vol]4.5 g/dLNormalThe [facility] HospitalComment on above:Performed By: #### CVDTBH #### [facility] [address] [place] [address] Dr. Ekta FunkGlucose [Mass/Vol]103 mg/xFVhubmb40-592MbsMercy Health Defiance Hospital Comment on above:Performed By: #### CVDTBH #### [facility] [address] [place] [address] Dr. Ekta FunkPotassium [Moles/Vol]5.0 mmol/LNormal3.5-5.1The [facility] Comment on above:Performed By: #### CVDTBH #### [facility] [address] [place] [address] Dr. Ekta FunkProtein [Mass/Vol]7.4 g/dLNormal6.4-8.2The [facility] Comment on above:Performed By: #### CVDTBH #### [facility] [address] [place] [address] Dr. Ekta Nolandium [Moles/Vol]141 mmol/ZWelvlg247-406DddMercy Health Defiance Hospital Comment on above:Performed By: #### CVDTBH #### [facility] [address] [place] [address] Dr. Ekta FunkUrea nitrogen [Mass/Vol]23.0 mg/dLCritically high7.0-18.0The [facility] HospitalComment on above:Performed By: #### CVDTBH #### [facility] [address] [place] [address] Dr. Ekta Spring nitrogen/Creatinine [Mass ratio]11.4 mg/mgNormalThe [facility] HospitalComment on above:Performed By: #### CVDTBH #### [facility] [address] [place] [address] Dr. Ekta DoanHorama 32-79-4326LDY6.793 uIU/mLNormal0.358-3.740[facility] HospitalComment on above:Performed By: #### CVDTBH #### [facility] [address] [place] [address] Dr. Ekta Lopez B12 AND FOLATEon 12-93-3540Lhzpcnnmd (Vitamin B12) [Mass/Vol] 175.0 pg/mLCritically yeu950.0-986.0The [facility] HospitalComment on above: Performed By: #### B12FOL, VITAD, IRON #### [facility] [address] [place] [address] Dr. Ekta FunkFOLATE10.30 ng/mLNormal8.60-58.90[facility] HospitalComment on above:Performed By: #### B12FOL, VITAD, IRON #### [facility] [address] [place] [address] Dr. Ekta FunkVITAMIN D 25 OHon 22-14-6547ART D 25-OH24.0 ng/mLNormalMercy Health Defiance HospitalComment on above:Performed By: #### B12FOL, VITAD, IRON #### [facility] [address] [place] [address] Dr. Ekta Lopez D R[place] [facility] HospitalComment on above: Result Comment: <20 ng/mL Vit D deficient 20 - <30 ng/mL Vit D insufficient 30 - 100 ng/mL Vit D sufficient >100 ng/mL Potential ToxicityPerformed By: #### B12FOL, VITAD, IRON #### [facility] [address] [place] [address] Dr. Ekta Hope Visiton 60-15-8463Fgpkaj-up [id number] Sheila Mac 1950 F Date Provider Department Center 12/15/2022 3848-FAWNJASONRODRIGUEZ MOHAN [facility] No family history on file Level of Service:98966 [place] OFFICE/OUTPATIENT ESTABLISHED MOD MDM 30-39 MIN Reason for Visit and Comments: Follow-up [681573] - Is here f/u stress test pt states she had Bruises all over both legs symptoms stated a week ago also stated legs are swollen and burningNormalUniversity of Baylor [facility] Center – FriscoNM STRESS/REST MULTIon 58-35-8062YD STRESS/REST MULTIPatient: SHEILA MAC Exam Date: 12/05/2022 : 1950 Gender:F Ordering : DR KRZYSZTOF THOMPSON . Admission #: [id number] Family : Order #: [id number] CLICK HERE TO VIEW EXAM RADIOLOGY REPORT [...] by: Daniel Pineda M.D. on 12/06/2022 at 07:26[facility] SystemECHOCARDIO M/2D COMPLETEon 32-28-2948OXAQQWXKMI M/2D COMPLETEPatient: SHEILA MAC Exam Date: 11/27/2022 : 1950 Gender:F Ordering : DR KRZYSZTOF THOMPSON . Admission #: [id number] Family : Order #: [id number] CLICK HERE TO VIEW EXAM ECHOCARDIOGRAM REPORT [...] by: Bong Gaspar M.D. on 11/27/2022 at 14:39NormalThMount [address] [facility] AUTO DIFFon 44-04-0402VBEW #0.0 103/ulNormal0.0-0.1[facility] HospitalComment on above:Performed By: #### INSULIN #### [facility] [address] [place] [address] Dr. Ekta Thorntonsophils/100 WBC (Bld)0.6 %Normal0.2-2.0[facility] Comment on above:Performed By: #### INSULIN #### [facility] [address] [place] [address] Dr. Ekta Anthony #0.3 103/ulNormal0.0-0.7The [facility] HospitalComment on above: Performed By: #### INSULIN #### [facility] [address] [place] [address] Dr. Ekta Abebeosinophils/100 WBC (Bld)4.8 %Normal0.9-7.0[facility] Comment on above:Performed By: #### INSULIN #### [facility] [address] [place] [address] Dr. Ekta Abeberythrocyte distribution width (RBC) [Ratio]13.3 %Ldqxoh53.0-15.0 [facility] HospitalComment on above:Performed By: #### INSULIN #### [facility] [address] [place] [address] Dr. Ekta FunkHematocrit (Bld) [Volume fraction]29.1 %Critically low36.0-48.0 The [facility] HospitalComment on above:Performed By: #### INSULIN #### [facility] [address] [place] [address] Dr. Ekta FunkHemoglobin (Bld) [Mass/Vol]9.5 g/dLCritically low12.0-16.0The [facility] HospitalComment on above:Performed By: #### INSULIN #### [facility] [address] [place] [address] Dr. Ekta FunkIG #0.07 10e3/ulCritically high0.00-0.03The [facility] Comment on above:Performed By: #### INSULIN #### [facility] [address] [place] [address] Dr. Ekta FunkIG %1.0 %Critically high0.0-0.5The [facility] HospitalComment on above:Performed By: #### INSULIN #### [facility] [address] [place] [address] Dr. Ekta LundbergH #1.2 103/ulNormal1.2-3.8The [facility] HospitalComment on above:Performed By: #### INSULIN #### [facility] [address] [place] [address] Dr. Ekta Nettlesmphocytes/100 WBC (Bld)17.2 %Critically low20.5-60.0[facility] HospitalComment on above:Performed By: #### INSULIN #### [facility] [address] [place] [address] Dr. Ekta MaloneUAL DIFF REQNONormalThe [facility] HospitalComment on above: Performed By: #### INSULIN #### [facility] [address] [place] [address] Dr. Ekta Oconnor (RBC) [Entitic mass]31.7 yrOuihio54.7-34.0The [facility] HospitalComment on above:Performed By: #### INSULIN #### [facility] [address] [place] [address] Dr. Ekta Oconnor (RBC) [Mass/Vol]32.6 g/pYSvreis82.9-35.2The [facility] HospitalComment on above:Performed By: #### INSULIN #### [facility] [address] [place] [address] Dr. Ekta Oconnor (RBC) [Entitic vol]97.0 qXSnfncs58.0-99.0The [facility] HospitalComment on above:Performed By: #### INSULIN #### [facility] [address] [place] [address] Dr. Ekta Rivas #0.8 103/ulNormal0.3-0.8The [facility] HospitalComment on above:Performed By: #### INSULIN #### [facility] [address] [address] [address] Ekta Perkinsocytes/100 WBC (Bld)11.1 %Normal1.7-12.0The [facility] Comment on above:Performed By: #### INSULIN #### [facility] [address] [place] [address] Dr. Ekta DimasUT #4.5 103/ulNormal1.4-6.5The [facility] HospitalComment on above:Performed By: #### INSULIN #### [facility] [address] [place] [address] Dr. Ekta Dimasutrophils/100 WBC (Bld)65.3 %Gqqrwq40.0-75.0The [facility] HospitalComment on above:Performed By: #### INSULIN #### [facility] [address] [place] [address] Dr. Ekta Salomonlet mean volume (Bld) [Entitic vol]9.4 fLCritically low 9.5-13.5The [facility] HospitalComment on above:Performed By: #### INSULIN #### [facility] [address] [address] [address] Ekta FunkPLT263 103/pdAlamsm067-740Cks [facility] HospitalComment on above: Performed By: #### INSULIN #### [facility] [address] [address] [address] Ekta FunkRBC3.00 106/ulCritically low4.20-5.40The [facility] HospitalComment on above:Performed By: #### INSULIN #### [facility] [address] [place] [address] Dr. Ekta FunkWBC6.9 103/ulNormal4.0-11.0The [facility] HospitalComment on above: Performed By: #### INSULIN #### [facility] [address] [place] [address] Dr. Ekta CarrilloF 14(COMP METB)on 65-05-7926Ibloxou [Mass/Vol]2.2 g/dL Critically low3.4-5.0The [facility] HospitalComment on above:Performed By: #### CMP #### [facility] [address] [place] [address] Dr. Ekta FunkAlbumin/Globulin [Mass ratio]0.6 {ratio}NormalThe [facility] HospitalComment on above:Performed By: #### CMP #### [facility] [address] [place] [address] Dr. Ekta Cowart [Catalytic activity/Vol]82 U/TZficpe14-103Bnl [facility] HospitalComment on above:Performed By: #### CMP #### [facility] [address] [place] [address] Dr. Ekta Mccormick [Catalytic activity/Vol]13 U/LCritically nih74-76Yvt [facility] HospitalComment on above:Performed By: #### CMP #### [facility] [address] [place] [address] Dr. Ekta Harrison gap [Moles/Vol]14.0 mmol/LNormalThe [facility] on above:Performed By: #### CMP #### [facility] [address] [address] [address] Ekta FunkAST [Catalytic activity/Vol]18 U/ZCyadol36-82Hei [facility]ment on above:Performed By: #### CMP #### [facility] [address] [address] [address] Ekta FunkBilirubin [Mass/Vol]0.4 mg/dLNormal0.2-1.0The [facility] Comment on above:Performed By: #### CMP #### [facility] [address] [address] [address] Ekta FunkCalcium [Mass/Vol]8.6 mg/dLNormal8.5-10.1The [facility] Comment on above:Performed By: #### CMP #### [facility] [address] [place] [address] Dr. Ekta FunkChloride [Moles/Vol]108 mmol/LCritically aamz41-220Xmt [facility] HospitalComment on above:Performed By: #### CMP #### [facility] [address] [address] [address] Etka FunkCO2 [Moles/Vol]19.6 mmol/LCritically low21.0-32.0The [facility] HospitalComment on above:Performed By: #### CMP #### [facility] [address] [place] [address] Dr. Ekta FunkCreatinine [Mass/Vol]1.70 mg/dLCritically high0.55-1.02The [facility] HospitalComment on above:Performed By: #### CMP #### [facility] [address] [address] [address] Ekta AbebeGFR-AF YJLFWUQN08 mL/min/1.04e4Nrdyxpcdqu low>=60The [facility] HospitalComment on above:Performed By: #### CMP #### [facility] [address] [address] [address] Ekta AbebeGFR-NON AF AUQZEOFK36 mL/min/1.30b7Ohdaiwbvpv low>=60The [facility] HospitalComment on above:Performed By: #### CMP #### [facility] [address] [address] [address] Ekta FunkGlobulin (S) [Mass/Vol]3.6 g/dLNormalThMercy Health Tiffin HospitalComment on above:Performed By: #### CMP #### [facility] [address] [address] [address] Ekta FunkGlucose [Mass/Vol]103 mg/sMRwpykh22-793Kcl [facility] Comment on above:Performed By: #### CMP #### [facility] [address] [address] [address] Ekta FunkPotassium [Moles/Vol]4.6 mmol/LNormal3.5-5.1The [facility] Comment on above:Performed By: #### CMP #### [facility] [address] [place] [address] Dr. Ekta FunkProtein [Mass/Vol]5.8 g/dLCritically low6.4-8.2The [facility] HospitalComment on above:Performed By: #### CMP #### [facility] [address] [address] [address] Ekta FunkSodium [Moles/Vol]137 mmol/GQvhqkf044-300TfvMer[facility] Comment on above:Performed By: #### CMP #### [facility] [address] [address] [address] Ekta FunkUrea nitrogen [Mass/Vol]26.0 mg/dLCritically high7.0-18.0The [facility] HospitalComment on above:Performed By: #### CMP #### [facility] [address] [address] [address] Ekta Sprnig nitrogen/Creatinine [Mass ratio]15.3 mg/mgNormalThe [facility] HospitalComment on above:Performed By: #### CMP #### [facility] [address] [place] [address] Dr. Ekta CaalC AUTO DIFFon [id number] #0.1 103/ulNormal0.0-0.1The [facility] HospitalComment on above:Performed By: #### CBC #### [facility] [address] [address] [address] Ekta FunkBasophils/100 WBC (Bld)0.7 %Normal0.2-2.0[facility] Comment on above:Performed By: #### CBC #### [facility] [address] [place] [address] Dr. Ekta Anthony #0.3 103/ulNormal0.0-0.7The [facility] HospitalComment on above: Performed By: #### CBC #### [facility] [address] [place] [address] Dr. Ekta Abebeosinophils/100 WBC (Bld)3.4 %Normal0.9-7.0[facility] Comment on above:Performed By: #### CBC #### [facility] [address] [place] [address] Dr. Ekta Abeberythrocyte distribution width (RBC) [Ratio]13.6 %Qfpewu75.0-15.0 [facility] HospitalComment on above:Performed By: #### CBC #### [facility] [address] [place] [address] Dr. Ekta FunkHematocrit (Bld) [Volume fraction]32.1 %Critically low36.0-48.0 The [facility] HospitalComment on above:Performed By: #### CBC #### [facility] [address] [place] [address] Dr. Ekta FunkHemoglobin (Bld) [Mass/Vol]10.3 g/dLCritically low12.0-16.0[facility] HospitalComment on above:Performed By: #### CBC #### [facility] [address] [place] [address] Dr. Ekta Olivares #0.08 10e3/ulCritically high0.00-0.03[facility] Comment on above:Performed By: #### CBC #### [facility] [address] [place] [address] Dr. Ekta Olivares %0.9 %Critically high0.0-0.5The [facility] HospitalComment on above:Performed By: #### CBC #### [facility] [address] [place] [address] Dr. Ekta Puntam #0.9 103/ulCritically low1.2-3.8The [facility] Comment on above:Performed By: #### CBC #### [facility] [address] [place] [address] Dr. Ekta Lundberghocytes/100 WBC (Bld)10.7 %Critically low20.5-60.0The [facility] HospitalComment on above:Performed By: #### CBC #### [facility] [address] [place] [address] Dr. Ekta Beckham DIFF REQNONormalThe [facility] HospitalComment on above: Performed By: #### CBC #### [facility] [address] [place] [address] Dr. Ekta Frye (RBC) [Entitic mass]32.2 gsRemcrx42.7-34.0[facility] HospitalComment on above:Performed By: #### CBC #### [facility] [address] [place] [address] Dr. Ekta Oconnor (RBC) [Mass/Vol]32.1 g/cNBtskpj57.9-35.2The [facility] HospitalComment on above:Performed By: #### CBC #### [facility] [address] [place] [address] Dr. Ekta Estevez (RBC) [Entitic vol]100.3 fLCritically high81.0-99.0[facility] HospitalComment on above:Performed By: #### CBC #### [facility] [address] [place] [address] Dr. Ekta Rivas #0.9 103/ulCritically high0.3-0.8The [facility] Comment on above:Performed By: #### CBC #### [facility] [address] [place] [address] Dr. Yilan ChangMonocytes/100 WBC (Bld)9.9 %Normal1.7-12.0The [facility] Comment on above:Performed By: #### CBC #### [facility] [address] [place] [address] Dr. Ekta Salazar #6.4 103/ulNormal1.4-6.5The [facility] HospitalComment on above:Performed By: #### CBC #### [facility] [address] [place] [address] Dr. Ekta Dimasutrophils/100 WBC (Bld)74.4 %Xzgsdg07.0-75.0The [facility] HospitalComment on above:Performed By: #### CBC #### [facility] [address] [place] [address] Dr. Ekta Salomonlet mean volume (Bld) [Entitic vol]9.5 fLNormal9.5-13.5The [facility] HospitalComment on above:Performed By: #### CBC #### [facility] [address] [place] [address] Dr. Ekta DriverT267 103/edWavscl573-167Bra [facility] HospitalComment on above: Performed By: #### CBC #### [facility] [address] [place] [address] Dr. Ekta FunkRBC3.20 106/ulCritically low4.20-5.40The [facility] HospitalComment on above:Performed By: #### CBC #### [facility] [address] [place] [address] Dr. Ekta FunkWBC8.6 103/ulNormal4.0-11.0The [facility] HospitalComment on above: Performed By: #### CBC #### [facility] [address] [place] [address] Dr. Ekta ThorntonSO #0.1 103/ulNormal0.0-0.1The [facility] HospitalComment on above:Performed By: #### CMP #### [facility] [address] [place] [address] Dr. Ekta Thorntonsophils/100 WBC (Bld)0.7 %Normal0.2-2.0The [facility] Comment on above:Performed By: #### CMP #### [facility] [address] [place] [address] Dr. Ekta Anthony #0.3 103/ulNormal0.0-0.7The [facility] HospitalComment on above: Performed By: #### CMP #### [facility] [address] [place] [address] Dr. Ekta Abebeosinophils/100 WBC (Bld)3.9 %Normal0.9-7.0The [facility] Comment on above:Performed By: #### CMP #### [facility] [address] [place] [address] Dr. Ekta Abeberythrocyte distribution width (RBC) [Ratio]13.2 %Cxcrbm99.0-15.0 [facility] HospitalComment on above:Performed By: #### CMP #### [facility] [address] [place] [address] Dr. Ekta FunkHematocrit (Bld) [Volume fraction]28.0 %Critically low36.0-48.0 [facility] HospitalComment on above:Performed By: #### CMP #### [facility] [address] [place] [address] Dr. Ekta FunkHemoglobin (Bld) [Mass/Vol]9.3 g/dLCritically low12.0-16.0The [facility] HospitalComment on above:Performed By: #### CMP #### [facility] [address] [place] [address] Dr. Ekta Olivares #0.08 10e3/ulCritically high0.00-0.03The [facility] Comment on above:Performed By: #### CMP #### [facility] [address] [place] [address] Dr. Ekta Olivares %1.1 %Critically high0.0-0.5The [facility] HospitalComment on above:Performed By: #### CMP #### [facility] [address] [place] [address] Dr. Ekta Putnam #0.9 103/ulCritically low1.2-3.8The [facility] Comment on above:Performed By: #### CMP #### [facility] [address] [place] [address] Dr. Ekta Lundberghocytes/100 WBC (Bld)12.1 %Critically low20.5-60.0The [facility] HospitalComment on above:Performed By: #### CMP #### [facility] [address] [place] [address] Dr. Ekta Beckham DIFF REQNONormalThe [facility] HospitalComment on above: Performed By: #### CMP #### [facility] [address] [place] [address] Dr. Ekta Oconnor (RBC) [Entitic mass]32.0 wnTdyghw78.7-34.0The [facility] HospitalComment on above:Performed By: #### CMP #### [facility] [address] [place] [address] Dr. Ekta Oconnor (RBC) [Mass/Vol]33.2 g/wFYxrdqj55.9-35.2The [facility] HospitalComment on above:Performed By: #### CMP #### [facility] [address] [place] [address] Dr. Ekta Oconnor (RBC) [Entitic vol]96.2 hQVsmzfc65.0-99.0The [facility] HospitalComment on above:Performed By: #### CMP #### [facility] [address] [place] [address] Dr. Ekta Rivas #0.7 103/ulNormal0.3-0.8The [facility] HospitalComment on above:Performed By: #### CMP #### [facility] [address] [place] [address] Dr. Ekta Perkinsocytes/100 WBC (Bld)9.8 %Normal1.7-12.0The [facility] Comment on above:Performed By: #### CMP #### [facility] [address] [place] [address] Dr. Ekta DimasUT #5.2 103/ulNormal1.4-6.5The [facility] HospitalComment on above:Performed By: #### CMP #### [facility] [address] [place] [address] Dr. Ekta Dimasutrophils/100 WBC (Bld)72.4 %Ahhfeb78.0-75.0The [facility] HospitalComment on above:Performed By: #### CMP #### [facility] [address] [place] [address] Dr. Ekta FunkPlatelet mean volume (Bld) [Entitic vol]9.4 fLCritically low 9.5-13.5The [facility] HospitalCom[facility] on above:Performed By: #### CMP #### [facility] [address] [place] [address] Dr. Ekta FunkPLT250 103/ppNieljh923-587Zni [facility] on above: Performed By: #### CMP #### [facility] [address] [place] [address] Dr. Ekta FunkRBC2.91 106/ulCritically low4.20-5.40The [facility] on above:Performed By: #### CMP #### [facility] [address] [place] [address] Dr. Ekta FunkWBC7.2 103/ulNormal4.0-11.0The [facility] HospitalCom[facility] on above: Performed By: #### CMP #### [facility] [address] [place] [address] Dr. Ekta FunkPROF 14(COMP METB)on [id number] [Mass/Vol]2.1 g/dL Critically low3.4-5.0The [facility] on above:Performed By: #### CMP #### [facility] [address] [place] [address] Dr. Ekta FunkAlbumin/Globulin [Mass ratio]0.6 {ratio}NormalThe [facility] HospitalCommarlette [facility] on above:Performed By: #### CMP #### [facility] [address] [address] [address] Ekta Cowart [Catalytic activity/Vol]68 U/WSaizbz32-230Sjq [facility] HospitalComment on above:Performed By: #### CMP #### [facility] [address] [address] [address] Ekta AlcantaraT [Catalytic activity/Vol]14 U/UMxqnuw32-76Hcc [facility] HospitalComment on above:Performed By: #### CMP #### [facility] [address] [address] [address] Ekta Mcleodon gap [Moles/Vol]12.9 mmol/LNormalThe [facility] Comment on above:Performed By: #### CMP #### [facility] [address] [place] [address] Dr. Ekta FunkAST [Catalytic activity/Vol]14 U/LCritically qht25-67Ury [facility] HospitalComment on above:Performed By: #### CMP #### [facility] [address] [place] [address] Dr. Ekta FunkBilirubin [Mass/Vol]0.3 mg/dLNormal0.2-1.0The [facility] Comment on above:Performed By: #### CMP #### [facility] [address] [place] [address] Dr. Ekta FunkCalcium [Mass/Vol]8.3 mg/dLCritically low8.5-10.1The [facility] HospitalComment on above:Performed By: #### CMP #### [facility] [address] [place] [address] Dr. Ekta FunkChloride [Moles/Vol]109 mmol/LCritically wrne47-989Jfs [facility] HospitalComment on above:Performed By: #### CMP #### [facility] [address] [address] [address] Ekta FunkCO2 [Moles/Vol]19.3 mmol/LCritically low21.0-32.0The [facility] HospitalComment on above:Performed By: #### CMP #### [facility] [address] [address] [address] Ekta FunkCreatinine [Mass/Vol]1.54 mg/dLCritically high0.55-1.02The [facility] on above:Performed By: #### CMP #### [facility] [address] [address] [address] Dash ChangEGFR-AF UBEEKKFB75 mL/min/1.86m3Nynlyymidj low>=60The [facility] HospitalComment on above:Performed By: #### CMP #### [facility] [address] [address] [address] Ekta AbebeGFR-NON AF JZHPLRBG95 mL/min/1.16f2Ssmrkbpcmq low>=60The [facility] HospitalComment on above:Performed By: #### CMP #### [facility] [address] [address] [address] Ekta FunkGlobulin (S) [Mass/Vol]3.7 g/dLNormalThe [facility] HospitalComment on above:Performed By: #### CMP #### [facility] [address] [address] [address] Ekta FunkGlucose [Mass/Vol]117 mg/dLCritically bohp42-400Xig [facility] HospitalComment on above:Performed By: #### CMP #### [facility] [address] [address] [address] Ekta FunkPotassium [Moles/Vol]4.2 mmol/LNormal3.5-5.1The [facility] Comment on above:Performed By: #### CMP #### [facility] [address] [address] [address] Ekta FunkProtein [Mass/Vol]5.8 g/dLCritically low6.4-8.2The [facility] HospitalCom[facility] on above:Performed By: #### CMP #### [facility] [address] [address] [address] Ekta FunkSodium [Moles/Vol]137 mmol/OBypoua532-115Ylx [facility] Comment on above:Performed By: #### CMP #### [facility] [address] [place] [address] Dr. Ekta Spring nitrogen [Mass/Vol]27.0 mg/dLCritically high7.0-18.0The [facility] HospitalComment on above:Performed By: #### CMP #### [facility] [address] [place] [address] Dr. Ekta Spring nitrogen/Creatinine [Mass ratio]17.5 mg/mgNormalThe [facility] HospitalComment on above:Performed By: #### CMP #### [facility] [address] [place] [address] Dr. Ekta FunkAMMONIAon [id number] (P) [Moles/Vol]13 umol/UNityat81-24 The [facility] HospitalComment on above:Performed By: #### CVDTBH #### [facility] [address] [place] [address] Dr. Ekta Agarwal AUTO DIFFon [id number] #0.0 103/ulNormal0.0-0.1The [facility] HospitalComment on above:Performed By: #### CMP #### [facility] [address] [place] [address] Dr. Ekta FunkBasophils/100 WBC (Bld)0.4 %Normal0.2-2.0[facility] Comment on above:Performed By: #### CMP #### [facility] [address] [place] [address] Dr. Ekta Anthony #0.4 103/ulNormal0.0-0.7The [facility] on above: Performed By: #### CMP #### [facility] [address] [place] [address] Dr. Ekta Abebeosinophils/100 WBC (Bld)3.8 %Normal0.9-7.0The [facility] Comment on above:Performed By: #### CMP #### [facility] [address] [place] [address] Dr. Ekta Abeberythrocyte distribution width (RBC) [Ratio]13.2 %Jfgcxx15.0-15.0 [facility] HospitalComment on above:Performed By: #### CMP #### [facility] [address] [place] [address] Dr. Ekta FunkHematocrit (Bld) [Volume fraction]34.0 %Critically low36.0-48.0 The [facility]Comment on above:Performed By: #### CMP #### [facility] [address] [place] [address] Dr. Ekta FunkHemoglobin (Bld) [Mass/Vol]11.5 g/dLCritically low12.0-16.0The [facility] HospitalComment on above:Performed By: #### CMP #### [facility] [address] [place] [address] Dr. Ekta FunkIG #0.11 10e3/ulCritically high0.00-0.03The [facility] Comment on above:Performed By: #### CMP #### [facility] [address] [place] [address] Dr. Ekta Olivares %1.2 %Critically high0.0-0.5The [facility] HospitalComment on above:Performed By: #### CMP #### [facility] [address] [place] [address] Dr. Ekta Putnam #1.4 103/ulNormal1.2-3.8The [facility] HospitalComment on above:Performed By: #### CMP #### [facility] [address] [place] [address] Dr. Ekta Lundberghocytes/100 WBC (Bld)14.9 %Critically low20.5-60.0[facility] HospitalComment on above:Performed By: #### CMP #### [facility] [address] [place] [address] Dr. Ekta MaloneUAL DIFF REQNONormalThe [facility] HospitalComment on above: Performed By: #### CMP #### [facility] [address] [place] [address] Dr. Ekta Frye (RBC) [Entitic mass]32.5 njRetymp20.7-34.0The [facility] HospitalComment on above:Performed By: #### CMP #### [facility] [address] [place] [address] Dr. Ekta Oconnor (RBC) [Mass/Vol]33.8 g/bQJcwegk53.9-35.2The [facility] HospitalComment on above:Performed By: #### CMP #### [facility] [address] [place] [address] Dr. Ekta Estevez (RBC) [Entitic vol]96.0 dFTxmeeo95.0-99.0The [facility] HospitalComment on above:Performed By: #### CMP #### [facility] [address] [place] [address] Dr. Ekta Rivas #0.9 103/ulCritically high0.3-0.8The [facility] Comment on above:Performed By: #### CMP #### [facility] [address] [place] [address] Dr. Ekta Perkinsocytes/100 WBC (Bld)9.7 %Normal1.7-12.0The [facility] Comment on above:Performed By: #### CMP #### [facility] [address] [place] [address] Dr. Ekta Salazar #6.4 103/ulNormal1.4-6.5The [facility] HospitalComment on above:Performed By: #### CMP #### [facility] [address] [place] [address] Dr. Ekta Dimasutrophils/100 WBC (Bld)70.0 %Rrpfua93.0-75.0The [facility] HospitalComment on above:Performed By: #### CMP #### [facility] [address] [place] [address] Dr. Ekta Trevino mean volume (Bld) [Entitic vol]9.3 fLCritically low 9.5-13.5The [facility] HospitalComment on above:Performed By: #### CMP #### [facility] [address] [place] [address] Dr. Ekta FunkPLT308 103/qwZsymww610-181Abb [facility] HospitalComment on above: Performed By: #### CMP #### [facility] [address] [place] [address] Dr. Ekta FunkRBC3.54 106/ulCritically low4.20-5.40The [facility] HospitalComment on above:Performed By: #### CMP #### [facility] [address] [place] [address] Dr. Ekta FunkWBC9.1 103/ulNormal4.0-11.0The [facility] HospitalComment on above: Performed By: #### CMP #### [facility] [address] [place] [address] Dr. Ekta FunkCPKorama [id number] [Catalytic activity/Vol]21 U/LCritically low 26-192The [facility] HospitalComment on above:Performed By: #### B12FOL, VITAD, IRON #### [facility] [address] [place] [address] Dr. Ekta FunkCT STROKE HEAD WOon [id number] STROKE HEAD WOEXAMINATION: CT STROKE HEAD WO [...] by: VANESSA PARADA Date: 2022-11-24 11:09 NormalThe [facility] HEAD WO W CONon [id number] HEAD WO W CON EXAMINATION: CTA HEAD [...] authenticated by: DANIEL TORRESAYLA Date: 2022-11-24 12:41NormalThe [facility] HospitalCULTURE URINEon [id number] URINECulture Observations: NO GROWTH.NormalThe [facility] HospitalComment on above:Performed By: #### INSULIN #### [facility] [address] [address] [address] Ekta FunkCovid-19 PCR (CVDTB)on [id number]-CoV-2 (COVID-19) RNA GANESH+probe Ql (Unsp spec)Not detectedNormalNOT DETECTEDMercy Health [facility] Hospital Comment on above:Result Comment: When diagnostic [...] for this test is supported by the [employer] of Health and Human Service's declaration that [...] used).Performed By: #### CVDTBH #### [facility] [address] [place] [address] Dr. Ekta Mckeon URINE PROFILEon [id number] Ql (U)NegativeNormal NEGATIVEThe [facility]ermont HospitalComment on above:Performed By: #### CBC #### [facility] [address] [address] [address] Ekta FunkClarity (U)CLEARNormalCLEARThe [place] HospitalComment on above: Performed By: #### CBC #### [facility] [address] [address] [address] Ekta Boothe (U)LT. YELLOWNormalYELLOWMercy Health Defiance HospitalComment on above:Performed By: #### CBC #### [facility] [address] [address] [address] Ekta Chan micrscopic examination will be performed if indicated. NormalThe [place] HospitalComment on above:Performed By: #### CBC #### [facility] [address] [address] [address] Ekta FunkGlucose Ql (U)NegativeNormalNEGATIVEMercy Health Defiance HospitalComment on above:Performed By: #### CBC #### [facility] [address] [place] [address] Dr. Etka FunkHemoglobin Ql (U)NegativeNormalNEGATIVECleveland Clinic Union Hospital on above:Performed By: #### CBC #### [facility] [address] [address] [address] Ekta FunkKetones Ql (U)NegativeNormalNEGATIVEMercy Health Defiance HospitalComment on above:Performed By: #### CBC #### [facility] [address] [place] [address] Dr. Ekta FunkLEUKOCYTESNegativeNormalNEGATIVEMercy Health Defiance HospitalComment on above:Performed By: #### CBC #### [facility] [address] [address] [address] Ekta FunkNitrite Ql (U)NegativeNormalNEGATIVEMercy Health Defiance HospitalComment on above:Performed By: #### CBC #### [facility] [address] [address] [address] Ekta FunkpH (U)5.5 [pH]Normal5-9Mer[facility] Def[facility] HospitalComment on above: Performed By: #### CBC #### [facility] [address] [place] [address] Dr. Ekta FunkSPEC GRAVITY1.580Bxbcun7.005-<=1.025The [facility] HospitalComment on above:Performed By: #### CBC #### [facility] [address] [address] [address] Ekta Camejo PROTEINNegativeNormalNEGATIVE/ TRACEThe [facility] Comment on above:Performed By: #### CBC #### [facility] [address] [address] [address] Ekta Villarreal MICRO INDNOT INDICATEDNoCincinnati Children's Hospital Medical CenterComment on above:Performed By: #### CBC #### [facility] [address] [place] [address] Dr. Ekta FunkUrobilinogen Qn (U)0.2 {Ivan'U}/dLNormal0.2 - 1.0The [facility] HospitalComment on above:Performed By: #### CBC #### [facility] [address] [place] [address] Dr. Ekta FunkGLYCOHEMOGLOBIN A1Con [id number] RECOMMENDATIONSEE BELOWNormal The [facility] HospitalComment on above:Result Comment: ADA RECOMMENDED LIMIT 4.0 - 6.0 ADA THERAPEUTIC TARGET < 7.0 ACTION SUGGESTED > 7.0Performed By: #### B12FOL, VITAD, IRON #### [facility] [address] [place] [address] Dr. Ekta FunkGlucose [Mass/Vol]143 mg/dLACMC Healthcare SystemComment on above:Performed By: #### B12FOL, VITAD, IRON #### [facility] [address] [place] [address] Dr. Ekta FunkHbA1c (Bld) [Mass fraction]6.6 %Critically high4.5-6.2The [facility] HospitalComment on above:Performed By: #### B12FOL, VITAD, IRON #### [facility] [address] [place] [address] Dr. Ekta FunkLACTATE/LACTIC ACIDon [id number] [Moles/Vol]1.6 mmol/L Normal0.4-2.0The [facility] HospitalComment on above:Performed By: #### CMP #### [facility] [address] [address] [address] Ekta FunkLactate [Moles/Vol]2.1 mmol/LCritically high0.4-2.0The [facility] on above:Performed By: #### B12FOL, VITAD, IRON #### [facility] [address] [place] [address] Dr. Ekta FunkLIPASEon [id number] [Catalytic activity/Vol]165.0 U/LNormal 73.0-393.0[facility] on above:Performed By: #### B12FOL, VITAD, IRON #### [facility] [address] [place] [address] Dr. Ekta EncinasID PROFILEon [id number]-HDL RATIO NORMSEE [facility] HospitalCommarlette [facility] hospital on above:Result Comment: 3.3 - 4.4 LOW RISK 4.4 - 7.1 AVERAGE RISK 7.1 - 11.0 MODERATE RISK >11.0 HIGH RISKPerformed By: #### B12FOL, VITAD, IRON #### [facility] [address] [place] [address] Dr. Ekta Tejedaesterol [Mass/Vol]248 mg/dLCritically high<=200The [facility] on above:Performed By: #### B12FOL, VITAD, IRON #### [facility] [address] [place] [address] Dr. Ekta FunkCholesterol in HDL [Mass/Vol]58 mg/iJUmbuwa39-01Ngr [facility] on above:Performed By: #### B12FOL, VITAD, IRON #### [facility] [address] [place] [address] Dr. Ekta Tejedaesterol in LDL [Mass/Vol]165.6 mg/dLKing's Daughters Medical [facility] [place] on above:Performed By: #### B12FOL, VITAD, IRON #### [facility] [address] [place] [address] Dr. Yilan ChangCholesterol.total/Cholesterol in HDL [Mass ratio]4.3 {ratio} NormalMercy Health Defiance HospitalComment on above:Performed By: #### B12FOL, VITAD, IRON #### [facility] [address] [place] [address] Dr. Ekta Uriarte NORMAL> or = 60 mg/dl - LOW CARDIOVASCULAR RISK <40 mg/dl - HIGH CARDIOVASCULAR RISKACMC Healthcare SystemComment on above:Performed By: #### B12FOL, VITAD, IRON #### [facility] [address] [place] [address] Dr. Ekta FunkLDL CALC NORMALSEE BELOWACMC Healthcare SystemComment on above:Result Comment: <100 mg/dl OPTIMAL 100 - 129 mg/dl NEAR OR ABOVE OPTIMAL 130 - 159 mg/dl BORDERLINE HIGH 160 - 189 mg/dl HIGH >190 mg/dl VERY HIGH Performed By: #### B12FOL, VITAD, IRON #### [facility] [address] [place] [address] Dr. Ekta FunkTriglyceride [Mass/Vol]122 mg/dLNormal<=150[facility] Comment on above:Performed By: #### B12FOL, VITAD, IRON #### [facility] [address] [place] [address] Dr. Ekta AnneLDL CALC24.4 mg/dLACMC Healthcare SystemComment on above: Performed By: #### B12FOL, VITAD, IRON #### [facility] [address] [place] [address] Dr. Ekta FunkLeonardo BRAIN WO CONon [id number] BRAIN WO CONI BRAIN WO CON 11/24/2022 [...] by the provider. Electronically authenticated by: RAVEN ELANIE Date: 2022-11-24 19:35Normal The [facility] HospitalPROF 14(COMP METB)on [id number] [Mass/Vol]2.7 g/dL Critically low3.4-5.0The [facility] HospitalComment on above:Performed By: #### B12FOL, VITAD, IRON #### [facility] [address] [address] [address] Ekta FunkAlbumin/Globulin [Mass ratio]0.6 {ratio}NormalThe [facility] HospitalComment on above:Performed By: #### B12FOL, VITAD, IRON #### [facility] [address] [address] [address] Ekta Cowart [Catalytic activity/Vol]85 U/YXjhtyz76-645Ctp [facility] HospitalComment on above:Performed By: #### B12FOL, VITAD, IRON #### [facility] [address] [address] [address] Ekta Mccormick [Catalytic activity/Vol]18 U/KLtcckq41-27Qyw [facility] HospitalComment on above:Performed By: #### B12FOL, VITAD, IRON #### [facility] [address] [address] [address] Ekta Harrison gap [Moles/Vol]18.9 mmol/LNormalThe [facility] Comment on above:Performed By: #### B12FOL, VITAD, IRON #### [facility] [address] [address] [address] Ekta FunkAST [Catalytic activity/Vol]16 U/ENwiurw94-89Xma [facility] HospitalComment on above:Performed By: #### B12FOL, VITAD, IRON #### [facility] [address] [place] [address] Dr. Ekta FunkBilirubin [Mass/Vol]0.4 mg/dLNormal0.2-1.0The [facility] Comment on above:Performed By: #### B12FOL, VITAD, IRON #### [facility] [address] [place] [address] Dr. Ekta FunkCalcium [Mass/Vol]9.5 mg/dLNormal8.5-10.1The [facility] Comment on above:Performed By: #### B12FOL, VITAD, IRON #### [facility] [address] [place] [address] Dr. Ekta FunkChloride [Moles/Vol]108 mmol/LCritically mble97-055Ozk [facility] HospitalComment on above:Performed By: #### B12FOL, VITAD, IRON #### [facility] [address] [place] [address] Dr. Ekta FunkCO2 [Moles/Vol]21.1 mmol/LFlptbc78.0-32.0[facility] Comment on above:Performed By: #### B12FOL, VITAD, IRON #### [facility] [address] [place] [address] Dr. Ekta FunkCreatinine [Mass/Vol]2.08 mg/dLCritically high0.55-1.02The [facility] HospitalComment on above:Performed By: #### B12FOL, VITAD, IRON #### [facility] [address] [place] [address] Dr. Ekta AbebeGFR-AF WUVAHCBD13 mL/min/1.35a2Cppttbaqix low>=60The [facility] HospitalComment on above:Performed By: #### B12FOL, VITAD, IRON #### [facility] [address] [address] [address] Ekta AbebeGFR-NON AF PPQDXULS75 mL/min/1.94p1Xechzlfbkm low>=60The [facility] HospitalComment on above:Performed By: #### B12FOL, VITAD, IRON #### [facility] [address] [address] [address] Ekta FunkGlobulin (S) [Mass/Vol]4.6 g/dLNormalThe [facility] HospitalComment on above:Performed By: #### B12FOL, VITAD, IRON #### [facility] [address] [address] [address] Ekta FunkGlucose [Mass/Vol]119 mg/dLCritically ztpi58-034Wsr [facility] HospitalComment on above:Performed By: #### B12FOL, VITAD, IRON #### [facility] [address] [place] [address] Dr. Ekta FunkPotassium [Moles/Vol]5.0 mmol/LNormal3.5-5.1The [facility] Comment on above:Performed By: #### B12FOL, VITAD, IRON #### [facility] [address] [address] [address] Ekta FunkProtein [Mass/Vol]7.3 g/dLNormal6.4-8.2[facility] Comment on above:Performed By: #### B12FOL, VITAD, IRON #### [facility] [address] [place] [address] Dr. Ekta FunkSodium [Moles/Vol]143 mmol/REhotqg870-784Vmr [facility] Comment on above:Performed By: #### B12FOL, VITAD, IRON #### [facility] [address] [place] [address] Dr. Ekta FunkUrea nitrogen [Mass/Vol]37.0 mg/dLCritically high7.0-18.0The [facility] HospitalComment on above:Performed By: #### B12FOL, VITAD, IRON #### [facility] [address] [place] [address] Dr. Ekta FunkUrea nitrogen/Creatinine [Mass ratio]17.8 mg/mgNoCincinnati Children's Hospital Medical CenterComment on above:Performed By: #### B12FOL VITCAMI, IRON #### [facility] [address] [place] [address] Dr. Ekta Rich, HIGH SENSITIVITYon 64-10-1421MDIKWP02.1 pg/mLNormal 4.0-51.3The [facility] on above:Result Comment: CUT-OFF POINTS HAVE BEEN ESTABLISHED BASED ON THE FOURTH UNIVERSAL DEFINITIONS OF MYOCARDIAL INFARCTION. THE UPPER REFERENCE LIMIT (URL) OF TROPONIN, DEFINED THE 99TH PERCENTILE OF cTnI DISTRIBUTION IN A REFERENCE POPULATION, HAS BEEN CONFIRMED THE DECISION THRESHOLD FOR OR DIAGNOSIS.Performed By: #### B12FOLCAROLYN, IRON #### [facility] [address] [place] [address] Dr. Ekta Carmona 57-21-2598LZU4.184 uIU/mLNormal0.358-3.740The [facility] on above:Performed By: #### B12FOL VITAD, IRON #### [facility] [address] [place] [address] Dr. Ekta FunkXR CHEST 1 Von [id number] CHEST 1 VEXAM: XR CHEST 1 V [...] Electronically authenticated by: NATALIIA TATE Date: 2022-11-24 11:00ACMC Healthcare SystemBNPon [id number] peptide B (Bld) [Mass/Vol]565.0 pg/mLNormal<=900.0The [facility] on above:Performed By: #### INSULIN #### [facility] [address] [address] [address] Ekta Agarwal AUTO DIFFon [id number] #0.1 103/ulNormal0.0-0.1The [facility] HospitalComment on above:Performed By: #### CBC #### [facility] [address] [address] [address] Ekta FunkBasophils/100 WBC (Bld)0.6 %Normal0.2-2.0[facility] Comment on above:Performed By: #### CBC #### [facility] [address] [place] [address] Dr. Ekta Anthony #0.4 103/ulNormal0.0-0.7The [facility] HospitalComment on above: Performed By: #### CBC #### [facility] [address] [place] [address] Dr. Ekta Abebeosinophils/100 WBC (Bld)3.7 %Normal0.9-7.0The [facility] Comment on above:Performed By: #### CBC #### [facility] [address] [place] [address] Dr. Ekta Abeberythrocyte distribution width (RBC) [Ratio]13.2 %Fhurth42.0-15.0 The [facility] HospitalComment on above:Performed By: #### CBC #### [facility] [address] [place] [address] Dr. Ekta FunkHematocrit (Bld) [Volume fraction]36.7 %Qghlbk07.0-48.0The [facility] HospitalComment on above:Performed By: #### CBC #### [facility] [address] [place] [address] Dr. Ekta FunkHemoglobin (Bld) [Mass/Vol]12.4 g/vZUoymmq66.0-16.0The [facility] HospitalComment on above:Performed By: #### CBC #### [facility] [address] [place] [address] Dr. Ekta Olivares #0.10 10e3/ulCritically high0.00-0.03The [facility] Comment on above:Performed By: #### CBC #### [facility] [address] [place] [address] Dr. Ekta Olivares %1.0 %Critically high0.0-0.5The [facility] HospitalComment on above:Performed By: #### CBC #### [facility] [address] [address] [address] Ekta Putnam #1.5 103/ulNormal1.2-3.8The [facility] HospitalComment on above:Performed By: #### CBC #### [facility] [address] [place] [address] Dr. Ekta Lundberghocytes/100 WBC (Bld)14.9 %Critically low20.5-60.0The [facility] HospitalComment on above:Performed By: #### CBC #### [facility] [address] [place] [address] Dr. Ekta Beckham DIFF REQNONormalThe [facility] HospitalComment on above: Performed By: #### CBC #### [facility] [address] [place] [address] Dr. Ekta Frye (RBC) [Entitic mass]32.8 yzQrhyws22.7-34.0The [facility] HospitalComment on above:Performed By: #### CBC #### [facility] [address] [place] [address] Dr. Ekta Oconnor (RBC) [Mass/Vol]33.8 g/mBLyrdyr89.9-35.2The [facility] HospitalComment on above:Performed By: #### CBC #### [facility] [address] [place] [address] Dr. Ekta Oconnor (RBC) [Entitic vol]97.1 mXWcpvet60.0-99.0The [facility] HospitalComment on above:Performed By: #### CBC #### [facility] [address] [place] [address] Dr. Ekta Rivas #0.8 103/ulNormal0.3-0.8The [facility] HospitalComment on above:Performed By: #### CBC #### [facility] [address] [place] [address] Dr. Ekta Perkinsocytes/100 WBC (Bld)7.7 %Normal1.7-12.0The [facility] Comment on above:Performed By: #### CBC #### [facility] [address] [place] [address] Dr. Ekta Salazar #7.3 103/ulCritically high1.4-6.5The [facility] Comment on above:Performed By: #### CBC #### [facility] [address] [place] [address] Dr. Ekta Dimasutrophils/100 WBC (Bld)72.1 %Nxolmj16.0-75.0The [facility] HospitalComment on above:Performed By: #### CBC #### [facility] [address] [place] [address] Dr. Ekta Salomonlet mean volume (Bld) [Entitic vol]9.4 fLCritically low 9.5-13.5The [facility] HospitalComment on above:Performed By: #### CBC #### [facility] [address] [place] [address] Dr. Ekta DriverT251 103/uiMvkvoh228-951Naa [facility] HospitalComment on above: Performed By: #### CBC #### [facility] [address] [place] [address] Dr. Ekta AllenC3.78 106/ulCritically low4.20-5.40The [facility] HospitalComment on above:Performed By: #### CBC #### [facility] [address] [place] [address] Dr. Ekta FunkWBC10.1 103/ulNormal4.0-11.0The [facility] HospitalComment on above:Performed By: #### CBC #### [facility] [address] [place] [address] Dr. Ekta Correa THYROXINE INDEX T7on 45-89-1644GHO3.77Tzyxzg2.30-4.50The [facility] HospitalComment on above:Performed By: #### INSULIN #### [facility] [address] [address] [address] Ekta FunkT3U35.0 %Qllgcp87.0-39.0The [facility] HospitalComment on above: Performed By: #### INSULIN #### [facility] [address] [address] [address] Ekta FunkT4 [Mass/Vol]7.80 ug/dLNormal4.80-13.90The [facility] Comment on above:Performed By: #### INSULIN #### [facility] [address] [place] [address] Dr. Ekta FunkGLYCOHEMOGLOBIN A1Con [id number] RECOMMENDATIONSEE BELOWNormal The [facility] HospitalComment on above:Result Comment: ADA RECOMMENDED LIMIT 4.0 - 6.0 ADA THERAPEUTIC TARGET < 7.0 ACTION SUGGESTED > 7.0Performed By: #### B12FOL, VITAD, IRON #### [facility] [address] [place] [address] Dr. Ekta FunkGlucose [Mass/Vol]134 mg/dLNormalThe [facility] HospitalComment on above:Performed By: #### B12FOL, VITAD, IRON #### [facility] [address] [place] [address] Dr. Ekta FunkHbA1c (Bld) [Mass fraction]6.3 %Critically high4.5-6.2The [facility] HospitalComment on above:Performed By: #### B12FOL, VITAD, IRON #### [facility] [address] [place] [address] Dr. Ekta Shannon 62-33-6237Pflb [Mass/Vol]55.0 ug/mBDohamd49.0-170.0The [facility] HospitalComment on above:Performed By: #### B12FOL, VITAD, IRON #### [facility] [address] [place] [address] Dr. Yilan ChangLIPID PROFILEon [id number]-HDL RATIO NORMSEE [facility] HospitalComment on above:Result Comment: 3.3 - 4.4 LOW RISK 4.4 - 7.1 AVERAGE RISK 7.1 - 11.0 MODERATE RISK >11.0 HIGH RISKPerformed By: #### INSULIN #### [facility] [address] [address] [address] Ekta FunkCholesterol [Mass/Vol]294 mg/dLCritically high<=200The [facility] HospitalComment on above:Performed By: #### INSULIN #### [facility] [address] [address] [address] Ekta FunkCholesterol in HDL [Mass/Vol]64 mg/dLCritically lqxi86-24GauMercy Health Defiance HospitalCommarlette regional hospital on above:Performed By: #### INSULIN #### [facility] [address] [address] [address] Ekta FunkCholesterol in LDL [Mass/Vol]197.2 mg/dLACMC Healthcare SystemComment on above:Performed By: #### INSULIN #### [facility] [address] [address] [address] Ekta Tejedaestertracy.total/Cholesterol in HDL [Mass ratio]4.6 {ratio} NormalThe [facility] on above:Performed By: #### INSULIN #### [facility] [address] [address] [address] Ekta Uriarte NORMAL> or = 60 mg/dl - LOW CARDIOVASCULAR RISK <40 mg/dl - HIGH CARDIOVASCULAR RISKACMC Healthcare SystemCommarlette regional hospital on above:Performed By: #### INSULIN #### [facility] [address] [address] [address] Ekta FunkLDL CALC NORMALSEE [facility] HospitalComment on above:Result Comment: <100 mg/dl OPTIMAL 100 - 129 mg/dl NEAR OR ABOVE OPTIMAL 130 - 159 mg/dl BORDERLINE HIGH 160 - 189 mg/dl HIGH >190 mg/dl VERY HIGH Performed By: #### INSULIN #### [facility] [address] [place] [address] Dr. Ekta FunkTriglyceride [Mass/Vol]164 mg/dLCritically high<=150The [facility] HospitalComment on above:Performed By: #### INSULIN #### [facility] [address] [address] [address] Ekta FunkVLDL CALC32.8 mg/dLNormalThe [facility] HospitalComment on above: Performed By: #### INSULIN #### [facility] [address] [address] [address] Ekta FunkPROF 14(COMP METB)on [id number] [Mass/Vol]3.0 g/dL Critically low3.4-5.0The [facility] HospitalComment on above:Performed By: #### INSULIN #### [facility] [address] [place] [address] Dr. Ekta FunkAlbumin/Globulin [Mass ratio]0.6 {ratio}NormalThe [facility] HospitalComment on above:Performed By: #### INSULIN #### [facility] [address] [place] [address] Dr. Ekta Cowart [Catalytic activity/Vol]92 U/EVrvndx93-321Ldk [facility] HospitalComment on above:Performed By: #### INSULIN #### [facility] [address] [place] [address] Dr. Ekta Mccormick [Catalytic activity/Vol]26 U/NUkajoy88-32Qpi [facility] HospitalComment on above:Performed By: #### INSULIN #### [facility] [address] [address] [address] Ekta Harrison gap [Moles/Vol]16.2 mmol/LNormalThe [facility] Comment on above:Performed By: #### INSULIN #### [facility] [address] [place] [address] Dr. Ekta FunkAST [Catalytic activity/Vol]16 U/QGwbhhp66-36Ujt [facility] HospitalComment on above:Performed By: #### INSULIN #### [facility] [address] [address] [address] Ekta FunkBilirubin [Mass/Vol]0.5 mg/dLNormal0.2-1.0The [facility] Comment on above:Performed By: #### INSULIN #### [facility] [address] [place] [address] Dr. Ekta FunkCalcium [Mass/Vol]9.7 mg/dLNormal8.5-10.1The [facility] Comment on above:Performed By: #### INSULIN #### [facility] [address] [address] [address] Ekta FunkChloride [Moles/Vol]105 mmol/HThvrrl56-978Cru [facility] Comment on above:Performed By: #### INSULIN #### [facility] [address] [place] [address] Dr. Ekta FunkCO2 [Moles/Vol]24.9 mmol/CMejuqx69.0-32.0The [facility] Comment on above:Performed By: #### INSULIN #### [facility] [address] [place] [address] Dr. Ekta FunkCreatinine [Mass/Vol]2.18 mg/dLCritically high0.55-1.02The [facility] HospitalComment on above:Performed By: #### INSULIN #### [facility] [address] [place] [address] Dr. Ekta AbebeGFR-AF UYPOCBTA71 mL/min/1.75c3Tqdhivdvui low>=60The [facility] HospitalComment on above:Performed By: #### INSULIN #### [facility] [address] [place] [address] Dr. Ekta AbebeGFR-NON AF PWORSIXE57 mL/min/1.08n2Ttxtxiwlvm low>=60The [facility] HospitalComment on above:Performed By: #### INSULIN #### [facility] [address] [place] [address] Dr. Ekta FunkGlobulin (S) [Mass/Vol]4.7 g/dLNormalThe [facility] HospitalComment on above:Performed By: #### INSULIN #### [facility] [address] [place] [address] Dr. Ekta FunkGlucose [Mass/Vol]114 mg/dLCritically cxjh56-375Elk [facility] HospitalComment on above:Performed By: #### INSULIN #### [facility] [address] [address] [address] Ekta FunkPotassium [Moles/Vol]5.1 mmol/LNormal3.5-5.1[facility] Comment on above:Performed By: #### INSULIN #### [facility] [address] [address] [address] Ekta FunkProtein [Mass/Vol]7.7 g/dLNormal6.4-8.2[facility] Comment on above:Performed By: #### INSULIN #### [facility] [address] [address] [address] Ekta FunkSodium [Moles/Vol]141 mmol/RMqslxa380-248Lxv [facility] Comment on above:Performed By: #### INSULIN #### [facility] [address] [address] [address] Ekta FunkUrea nitrogen [Mass/Vol]51.0 mg/dLCritically high7.0-18.0The [facility] HospitalComment on above:Performed By: #### INSULIN #### [facility] [address] [address] [address] Ekta Spring nitrogen/Creatinine [Mass ratio]23.4 mg/mgNormalThe [facility] HospitalComment on above:Performed By: #### INSULIN #### [facility] [address] [address] [address] Ekta DoanHorama 74-21-9221KGA7.935 uIU/mLNormal0.358-3.740[facility] HospitalComment on above:Performed By: #### INSULIN #### [facility] [address] [place] [address] Dr. Ekta FunkXR CHEST 2 Von [id number] CHEST 2 VEXAMINATION: XR CHEST 2 V [...] Electronically authenticated by: GODWIN BECK Date: 2022-11-13 15:40[facility] SystemPROF 14(COMP METB)on [id number] [Mass/Vol]3.0 g/dL Critically low3.4-5.0The [facility] HospitalComment on above:Performed By: #### B12FOL, VITAD, IRON #### [facility] [address] [place] [address] Dr. Ekta FunkAlbumin/Globulin [Mass ratio]0.7 {ratio}NormalThe [facility] HospitalComment on above:Performed By: #### B12FOL, VITAD, IRON #### [facility] [address] [place] [address] Dr. Ekta Cowart [Catalytic activity/Vol]89 U/LOvlvtx40-502Kzh [facility] HospitalComment on above:Performed By: #### B12FOL, VITAD, IRON #### [facility] [address] [place] [address] Dr. Ekta Mccormick [Catalytic activity/Vol]29 U/QOvnsas46-07Kav [facility] HospitalComment on above:Performed By: #### B12FOL, VITAD, IRON #### [facility] [address] [address] [address] Ekta Harrison gap [Moles/Vol]15.2 mmol/LNormalThe [facility] Comment on above:Performed By: #### B12FOL, VITAD, IRON #### [facility] [address] [place] [address] Dr. Ekta Gonzalez [Catalytic activity/Vol]14 U/LCritically lma27-34Edh [facility] HospitalComment on above:Performed By: #### B12FOL, VITAD, IRON #### [facility] [address] [place] [address] Dr. Ekta FunkBilirubin [Mass/Vol]0.4 mg/dLNormal0.2-1.0[facility] Comment on above:Performed By: #### B12FOL, VITAD, IRON #### [facility] [address] [place] [address] Dr. Ekta FunkCalcium [Mass/Vol]9.1 mg/dLNormal8.5-10.1The [facility] Comment on above:Performed By: #### B12FOL, VITAD, IRON #### [facility] [address] [place] [address] Dr. Ekta FunkChloride [Moles/Vol]106 mmol/SNiwehb37-856IsvMercy Health [facility] Hospital Comment on above:Performed By: #### B12FOL, VITAD, IRON #### [facility] [address] [place] [address] Dr. Ekta FunkCO2 [Moles/Vol]24.2 mmol/IPsqjhn86.0-32.0[facility] Comment on above:Performed By: #### B12FOL, VITAD, IRON #### [facility] [address] [place] [address] Dr. Ekta FunkCreatinine [Mass/Vol]1.89 mg/dLCritically high0.55-1.02[facility] HospitalComment on above:Performed By: #### B12FOL, VITAD, IRON #### [facility] [address] [place] [address] Dr. Ekta Ro-AF JEQWOSPT15 mL/min/1.86f6Srwkaitkgw low>=60The [facility] HospitalComment on above:Performed By: #### B12FOL, VITAD, IRON #### [facility] [address] [place] [address] Dr. Ekta Ro-NON AF RVRYQGJE91 mL/min/1.12n6Nubpibivrx low>=60The [facility] HospitalComment on above:Performed By: #### B12FOL, VITAD, IRON #### [facility] [address] [place] [address] Dr. Ekta FunkGlobulin (S) [Mass/Vol]4.1 g/dLNormUK HealthcareComment on above:Performed By: #### B12FOL, VITAD, IRON #### [facility] [address] [address] [address] Ekta FunkGlucose [Mass/Vol]108 mg/dLCritically yibx92-559Okc [facility] HospitalComment on above:Performed By: #### B12FOL, VITAD, IRON #### [facility] [address] [place] [address] Dr. Ekta FunkPotassium [Moles/Vol]4.4 mmol/LNormal3.5-5.1The [facility] Comment on above:Performed By: #### B12FOL, VITAD, IRON #### [facility] [address] [place] [address] Dr. Ekta FunkProtein [Mass/Vol]7.1 g/dLNormal6.4-8.2The [facility] Comment on above:Performed By: #### B12FOL, VITAD, IRON #### [facility] [address] [place] [address] Dr. Ekta FunkSodium [Moles/Vol]141 mmol/JByrspx945-687Sso [facility] Comment on above:Performed By: #### B12FOL, VITAD, IRON #### [facility] [address] [place] [address] Dr. Ekta FunkUrea nitrogen [Mass/Vol]40.0 mg/dLCritically high7.0-18.0The [facility] HospitalComment on above:Performed By: #### B12FOL, VITAD, IRON #### [facility] [address] [place] [address] Dr. Ekta FunkUrea nitrogen/Creatinine [Mass ratio]21.2 mg/mgNoCincinnati Children's Hospital Medical CenterComment on above:Performed By: #### B12FOL, VITAD, IRON #### [facility] [address] [place] [address] Dr. Ekta Vaughan 13-82-9250Gkekzkbnhtk peptide B (Bld) [Mass/Vol]507.0 pg/mL Normal<=900.0The [facility] HospitalComment on above:Performed By: #### B12FOL, VITAD, IRON #### [facility] [address] [address] [address] Ekta Agarwal AUTO DIFFon [id number] #0.0 103/ulNormal0.0-0.1The [facility] HospitalComment on above:Performed By: #### CBC #### [facility] [address] [place] [address] Dr. Ekta FunkBasophils/100 WBC (Bld)0.2 %Normal0.2-2.0The [facility] Comment on above:Performed By: #### CBC #### [facility] [address] [place] [address] Dr. Ekta Anthony #0.1 103/ulNormal0.0-0.7The [facility] HospitalComment on above: Performed By: #### CBC #### [facility] [address] [place] [address] Dr. Ekta Abebeosinophils/100 WBC (Bld)1.1 %Normal0.9-7.0The [facility] Comment on above:Performed By: #### CBC #### [facility] [address] [place] [address] Dr. Ekta Abeberythrocyte distribution width (RBC) [Ratio]12.8 %Cvjtep97.0-15.0 The [facility] HospitalComment on above:Performed By: #### CBC #### [facility] [address] [place] [address] Dr. Ekta FunkHematocrit (Bld) [Volume fraction]37.1 %Mzgror47.0-48.0The [facility] HospitalComment on above:Performed By: #### CBC #### [facility] [address] [place] [address] Dr. Ekta FunkHemoglobin (Bld) [Mass/Vol]13.0 g/aGJjiunt19.0-16.0The [facility] HospitalComment on above:Performed By: #### CBC #### [facility] [address] [address] [address] Ekta Olivares #0.11 10e3/ulCritically high0.00-0.03The [facility] Comment on above:Performed By: #### CBC #### [facility] [address] [address] [address] Ekta Olivares %1.1 %Critically high0.0-0.5The [facility] HospitalComment on above:Performed By: #### CBC #### [facility] [address] [address] [address] Ekta Putnam #1.6 103/ulNormal1.2-3.8The [facility] HospitalComment on above:Performed By: #### CBC #### [facility] [address] [place] [address] Dr. Ekta Lundberghocytes/100 WBC (Bld)15.6 %Critically low20.5-60.0The [facility] HospitalComment on above:Performed By: #### CBC #### [facility] [address] [address] [address] Ekta MaloneUAL DIFF REQNONormalThe [facility] HospitalComment on above: Performed By: #### CBC #### [facility] [address] [place] [address] Dr. Ekta Oconnor (RBC) [Entitic mass]32.8 uuFzfnmp58.7-34.0The [facility] on above:Performed By: #### CBC #### [facility] [address] [place] [address] Dr. Ekta Oconnor (RBC) [Mass/Vol]35.0 g/eMOgjaoo01.9-35.2The [facility] on above:Performed By: #### CBC #### [facility] [address] [place] [address] Dr. Ekta Oconnor (RBC) [Entitic vol]93.7 wFUzqesl31.0-99.0The [facility] HospitalComment on above:Performed By: #### CBC #### [facility] [address] [address] [address] Ekta Rivas #0.9 103/ulCritically high0.3-0.8ThMer[facility] Health [facility] Comment on above:Performed By: #### CBC #### [facility] [address] [address] [address] Ekta Perkinsocytes/100 WBC (Bld)8.3 %Normal1.7-12.0[facility] Comment on above:Performed By: #### CBC #### [facility] [address] [address] [address] Ekta Salazar #7.5 103/ulCritically high1.4-6.5ThMer[facility] Comment on above:Performed By: #### CBC #### [facility] [address] [place] [address] Dr. Ekta Dimasutrophils/100 WBC (Bld)73.7 %Zecvyr34.0-75.0The [facility] HospitalComment on above:Performed By: #### CBC #### [facility] [address] [address] [address] Ekta Salomonlet mean volume (Bld) [Entitic vol]10.3 fLNormal9.5-13.5ThMercy Health Tiffin HospitalComment on above:Performed By: #### CBC #### [facility] [address] [address] [address] Ekta FunkPLT135 103/ulCritically umt736-784Ayc [facility] HospitalComment on above:Performed By: #### CBC #### [facility] [address] [address] [address] Ekta FunkRBC3.96 106/ulCritically low4.20-5.40The [facility] HospitalCommarlette regional hospital on above:Performed By: #### CBC #### [facility] [address] [address] [address] Ekta FunkWBC10.2 103/ulNormal4.0-11.0The [facility] HospitalComment on above:Performed By: #### CBC #### [facility] [address] [place] [address] Dr. Ekta Pal 14(COMP METB)on [id number] [Mass/Vol]2.7 g/dL Critically low3.4-5.0The [facility] HospitalComment on above:Performed By: #### B12FOL, VITAD, IRON #### [facility] [address] [place] [address] Dr. Ekta FunkAlbumin/Globulin [Mass ratio]0.8 {ratio}NormalThe [facility] HospitalComment on above:Performed By: #### B12FOL, VITAD, IRON #### [facility] [address] [place] [address] Dr. Ekta Cowart [Catalytic activity/Vol]74 U/VFpmkto73-546Whw [facility] on above:Performed By: #### B12FOL, VITAD, IRON #### [facility] [address] [place] [address] Dr. Ekta Mccormick [Catalytic activity/Vol]26 U/VWspjmn71-97Hro [facility] on above:Performed By: #### B12FOL, VITAD, IRON #### [facility] [address] [place] [address] Dr. Ekta Harrison gap [Moles/Vol]16.5 mmol/LNormalThe [facility] Comment on above:Performed By: #### B12FOL, VITAD, IRON #### [facility] [address] [place] [address] Dr. Ekta Gonzalez [Catalytic activity/Vol]15 U/UGqsjmd53-89Dxx [facility] on above:Performed By: #### B12FOL, VITAD, IRON #### [facility] [address] [place] [address] Dr. Ekta FunkBilirubin [Mass/Vol]0.4 mg/dLNormal0.2-1.0The [facility] Comment on above:Performed By: #### B12FOL, VITAD, IRON #### [facility] [address] [address] [address] Ekta FunkCalcium [Mass/Vol]8.1 mg/dLCritically low8.5-10.1The [facility] HospitalComment on above:Performed By: #### B12FOL, VITAD, IRON #### [facility] [address] [address] [address] Ekta FunkChloride [Moles/Vol]96 mmol/LCritically ovx03-952Esw [facility] HospitalComment on above:Performed By: #### B12FOL, VITAD, IRON #### [facility] [address] [place] [address] Dr. Ekta FunkCO2 [Moles/Vol]26.1 mmol/YHoyksg99.0-32.0The [facility] Comment on above:Performed By: #### B12FOL, VITAD, IRON #### [facility] [address] [place] [address] Dr. Ekta FunkCreatinine [Mass/Vol]3.28 mg/dLCritically high0.55-1.02The [facility] HospitalComment on above:Performed By: #### B12FOL, VITAD, IRON #### [facility] [address] [place] [address] Dr. Ekta AbebeGFR-AF GGGYBWMB83 mL/min/1.94g0Xlvgyqrwvn low>=60The [facility] HospitalComment on above:Performed By: #### B12FOL, VITAD, IRON #### [facility] [address] [place] [address] Dr. Ekta AbebeGFR-NON AF PEXBTUFB13 mL/min/1.57x5Mgsorpobgb low>=60The [facility] HospitalComment on above:Performed By: #### B12FOL, VITAD, IRON #### [facility] [address] [place] [address] Dr. Ekta FunkGlobulin (S) [Mass/Vol]3.6 g/dLNormalThe [facility] HospitalComment on above:Performed By: #### B12FOL, VITAD, IRON #### [facility] [address] [address] [address] Ekta FunkGlucose [Mass/Vol]132 mg/dLCritically ubqb62-336Vdo [facility] HospitalComment on above:Performed By: #### B12FOL, VITAD, IRON #### [facility] [address] [place] [address] Dr. Ekta FunkPotassium [Moles/Vol]4.6 mmol/LNormal3.5-5.1The [facility] Comment on above:Performed By: #### B12FOL, VITAD, IRON #### [facility] [address] [place] [address] Dr. Ekta FunkProtein [Mass/Vol]6.3 g/dLCritically low6.4-8.2The [facility] HospitalComment on above:Performed By: #### B12FOL, VITAD, IRON #### [facility] [address] [place] [address] Dr. Ekta FunkSodium [Moles/Vol]134 mmol/LCritically zhc498-372Akt [facility] HospitalComment on above:Performed By: #### B12FOL, VITAD, IRON #### [facility] [address] [place] [address] Dr. Ekta FunkUrea nitrogen [Mass/Vol]74.0 mg/dLCritically high7.0-18.0The [facility] HospitalComment on above:Performed By: #### B12FOL, VITAD, IRON #### [facility] [address] [place] [address] Dr. Ekta Spring nitrogen/Creatinine [Mass ratio]22.6 mg/mgNormalThe [facility] HospitalComment on above:Performed By: #### B12FOL, VITAD, IRON #### [facility] [address] [place] [address] Dr. Ekta Vaughan 55-67-4719Vccyphdawyc peptide B (Bld) [Mass/Vol]1411.0 pg/mLCritically high<=900.0The [facility] HospitalComment on above:Performed By: #### B12FOL, VITAD, IRON #### [facility] [address] [place] [address] Dr. Ekta Agarwal AUTO DIFFon [id number] #0.0 103/ulNormal0.0-0.1The [facility] on above:Performed By: #### B12FOL, VITAD, IRON #### [facility] [address] [place] [address] Dr. Ekta FunkBasophils/100 WBC (Bld)0.3 %Normal0.2-2.0The [facility] Comment on above:Performed By: #### B12FOL, VITAD, IRON #### [facility] [address] [place] [address] Dr. Ekta Anthony #0.1 103/ulNormal0.0-0.7The [facility] on above: Performed By: #### B12FOL, VITAD, IRON #### [facility] [address] [place] [address] Dr. Ekta Abebeosinophils/100 WBC (Bld)0.6 %Critically low0.9-7.0The [facility] HospitalComment on above:Performed By: #### B12FOL, VITAD, IRON #### [facility] [address] [place] [address] Dr. Ekta Abeberythrocyte distribution width (RBC) [Ratio]12.9 %Nsjihp40.0-15.0 The [facility] on above:Performed By: #### B12FOL, VITAD, IRON #### [facility] [address] [place] [address] Dr. Ekta FunkHematocrit (Bld) [Volume fraction]40.8 %Kluakq40.0-48.0The [facility] HospitalComment on above:Performed By: #### B12FOL, VITAD, IRON #### [facility] [address] [place] [address] Dr. Ekta FunkHemoglobin (Bld) [Mass/Vol]14.0 g/yHHefvez87.0-16.0The [facility] HospitalComment on above:Performed By: #### B12FOL, VITAD, IRON #### [facility] [address] [place] [address] Dr. Ekta Olivares #0.09 10e3/ulCritically high0.00-0.03The [facility] Comment on above:Performed By: #### B12FOL, VITAD, IRON #### [facility] [address] [place] [address] Dr. Ekta Olivares %0.8 %Critically high0.0-0.5The [facility] HospitalComment on above:Performed By: #### B12FOL, VITAD, IRON #### [facility] [address] [place] [address] Dr. Ekta Putnam #1.8 103/ulNormal1.2-3.8The [facility] HospitalComment on above:Performed By: #### B12FOL, VITAD, IRON #### [facility] [address] [place] [address] Dr. Ekta Lundberghocytes/100 WBC (Bld)16.2 %Critically low20.5-60.0The [facility] HospitalComment on above:Performed By: #### B12FOL, VITAD, IRON #### [facility] [address] [place] [address] Dr. Ekta Beckham DIFF REQNONormalThe [facility] HospitalComment on above: Performed By: #### B12FOL, VITAD, IRON #### [facility] [address] [place] [address] Dr. Ekta Oconnor (RBC) [Entitic mass]32.3 ueOyvxjb27.7-34.0The [facility] HospitalComment on above:Performed By: #### B12FOL, VITAD, IRON #### [facility] [address] [place] [address] Dr. Ekta Oconnor (RBC) [Mass/Vol]34.3 g/jGZcdjbu04.9-35.2The [facility] HospitalComment on above:Performed By: #### B12FOL, VITAD, IRON #### [facility] [address] [place] [address] Dr. Ekta Estevez (RBC) [Entitic vol]94.2 vRKvznqf98.0-99.0The [facility] HospitalComment on above:Performed By: #### B12FOL, VITAD, IRON #### [facility] [address] [place] [address] Dr. Ekta Rivas #0.8 103/ulNormal0.3-0.8The [facility] HospitalComment on above:Performed By: #### B12FOL, VITAD, IRON #### [facility] [address] [place] [address] Dr. Ekta Perkinsocytes/100 WBC (Bld)7.3 %Normal1.7-12.0The [facility] Comment on above:Performed By: #### B12FOL, VITAD, IRON #### [facility] [address] [place] [address] Dr. Ekta Salazar #8.1 103/ulCritically high1.4-6.5The [facility] Comment on above:Performed By: #### B12FOL, VITAD, IRON #### [facility] [address] [place] [address] Dr. Ekta Dimasutrophils/100 WBC (Bld)74.8 %Xzyqqr75.0-75.0The [facility] HospitalComment on above:Performed By: #### B12FOL, VITAD, IRON #### [facility] [address] [place] [address] Dr. Ekta Trevino mean volume (Bld) [Entitic vol]9.8 fLNormal9.5-13.5The [facility] HospitalComment on above:Performed By: #### B12FOL, VITAD, IRON #### [facility] [address] [place] [address] Dr. Ekta DriverT226 103/gjFhyhvn586-585Ebk [facility] HospitalComment on above: Performed By: #### B12FOL, VITAD, IRON #### [facility] [address] [place] [address] Dr. Ekta FunkRBC4.33 106/ulNormal4.20-5.40The [facility] HospitalComment on above:Performed By: #### B12FOL, VITAD, IRON #### [facility] [address] [place] [address] Dr. Ekta FunkWBC10.9 103/ulNormal4.0-11.0The [facility] HospitalComment on above:Performed By: #### B12FOL, VITAD, IRON #### [facility] [address] [place] [address] Dr. Ekta FunkPROF 14(COMP METB)on [id number] [Mass/Vol]3.1 g/dL Critically low3.4-5.0The [facility] HospitalComment on above:Performed By: #### B12FOL, VITAD, IRON #### [facility] [address] [place] [address] Dr. Ekta FunkAlbumin/Globulin [Mass ratio]0.7 {ratio}NormalThe [facility] HospitalComment on above:Performed By: #### B12FOL, VITAD, IRON #### [facility] [address] [place] [address] Dr. Ekta Cowart [Catalytic activity/Vol]81 U/QSuqcdc38-141Vtx [facility] HospitalComment on above:Performed By: #### B12FOL, VITAD, IRON #### [facility] [address] [place] [address] Dr. Ekta Mccormick [Catalytic activity/Vol]30 U/PLbcvva43-82Zih [facility] on above:Performed By: #### B12FOL, VITAD, IRON #### [facility] [address] [place] [address] Dr. Ekta Harrison gap [Moles/Vol]17.3 mmol/LNormalThe [facility] on above:Performed By: #### B12FOL, VITAD, IRON #### [facility] [address] [place] [address] Dr. Yilan ChangAST [Catalytic activity/Vol]11 U/LCritically yib72-19Mwa [facility] HospitalComment on above:Performed By: #### B12FOL, VITAD, IRON #### [facility] [address] [address] [address] Ekta FunkBilirubin [Mass/Vol]0.5 mg/dLNormal0.2-1.0[facility] Comment on above:Performed By: #### B12FOL, VITAD, IRON #### [facility] [address] [address] [address] Ekta FunkCalcium [Mass/Vol]8.6 mg/dLNormal8.5-10.1The [facility] Comment on above:Performed By: #### B12FOL, VITAD, IRON #### [facility] [address] [place] [address] Dr. Ekta FunkChloride [Moles/Vol]95 mmol/LCritically ouq08-302Kem [facility] HospitalComment on above:Performed By: #### B12FOL, VITAD, IRON #### [facility] [address] [address] [address] Ekta FunkCO2 [Moles/Vol]27.3 mmol/GXpapja52.0-32.0The [facility] Comment on above:Performed By: #### B12FOL, VITAD, IRON #### [facility] [address] [place] [address] Dr. Ekta FunkCreatinine [Mass/Vol]3.17 mg/dLCritically high0.55-1.02The [facility] HospitalComment on above:Performed By: #### B12FOL, VITAD, IRON #### [facility] [address] [address] [address] Ekta AbebeGFR-AF LMMZZMEX12 mL/min/1.39e5Pydmktowip low>=60The [facility] HospitalComment on above:Performed By: #### B12FOL, VITAD, IRON #### [facility] [address] [address] [address] Ekta AbebeGFR-NON AF QARUYPWS19 mL/min/1.15e9Zguyzieohs low>=60The [facility] HospitalComment on above:Performed By: #### B12FOL, VITAD, IRON #### [facility] [address] [address] [address] Ekta FunkGlobulin (S) [Mass/Vol]4.6 g/dLNormUK HealthcareComment on above:Performed By: #### B12FOL, VITAD, IRON #### [facility] [address] [place] [address] Dr. Ekta FunkGlucose [Mass/Vol]139 mg/dLCritically sxkg89-897Ddh [facility] HospitalComment on above:Performed By: #### B12FOL, VITAD, IRON #### [facility] [address] [place] [address] Dr. Ekta FunkPotassium [Moles/Vol]4.6 mmol/LNormal3.5-5.1The [facility] Comment on above:Performed By: #### B12FOL, VITAD, IRON #### [facility] [address] [place] [address] Dr. Ekta FunkProtein [Mass/Vol]7.7 g/dLNormal6.4-8.2The [facility] Comment on above:Performed By: #### B12FOL, VITAD, IRON #### [facility] [address] [place] [address] Dr. Ekta FunkSodium [Moles/Vol]135 mmol/LCritically diz427-686Zjd [facility] HospitalComment on above:Performed By: #### B12FOL, VITAD, IRON #### [facility] [address] [place] [address] Dr. Ekta FunkUrea nitrogen [Mass/Vol]73.0 mg/dLCritically high7.0-18.0The [facility] HospitalComment on above:Performed By: #### B12FOL, VITAD, IRON #### [facility] [address] [place] [address] Dr. Ekta FunkUrea nitrogen/Creatinine [Mass ratio]23.0 mg/mgNoCincinnati Children's Hospital Medical CenterComment on above:Performed By: #### B12FOL, VITAD, IRON #### [facility] [address] [address] [address] Ekta Vaughan 21-67-8293Ynijayccdaz peptide B (Bld) [Mass/Vol]2007.0 pg/mLCritically high<=900.0The [facility] HospitalComment on above:Performed By: #### CMP #### [facility] [address] [address] [address] Ekta Agarwal AUTO DIFFon 66-33-9829WCTN #0.0 103/ulNormal0.0-0.1The [facility] HospitalComment on above:Performed By: #### CBC #### [facility] [address] [place] [address] Dr. Ekta FunkBasophils/100 WBC (Bld)0.2 %Normal0.2-2.0The [facility] Comment on above:Performed By: #### CBC #### [facility] [address] [place] [address] Dr. Ekta Anthony #0.1 103/ulNormal0.0-0.7The [facility] HospitalComment on above: Performed By: #### CBC #### [facility] [address] [place] [address] Dr. Ekta Abebeosinophils/100 WBC (Bld)0.9 %Normal0.9-7.0The [facility] Comment on above:Performed By: #### CBC #### [facility] [address] [place] [address] Dr. Ekta Abeberythrocyte distribution width (RBC) [Ratio]12.8 %Bzassa17.0-15.0 The [facility] HospitalComment on above:Performed By: #### CBC #### [facility] [address] [place] [address] Dr. Ekta FunkHematocrit (Bld) [Volume fraction]38.8 %Tfbwww59.0-48.0The [facility] HospitalComment on above:Performed By: #### CBC #### [facility] [address] [address] [address] Ekta FunkHemoglobin (Bld) [Mass/Vol]13.3 g/bQFnmlvb53.0-16.0The [facility] HospitalComment on above:Performed By: #### CBC #### [facility] [address] [address] [address] Ekta Olivares #0.08 10e3/ulCritically high0.00-0.03The [facility] Comment on above:Performed By: #### CBC #### [facility] [address] [place] [address] Dr. Ekta Olivares %0.8 %Critically high0.0-0.5The [facility] HospitalComment on above:Performed By: #### CBC #### [facility] [address] [place] [address] Dr. Ekta Putnam #1.7 103/ulNormal1.2-3.8The [facility] HospitalComment on above:Performed By: #### CBC #### [facility] [address] [place] [address] Dr. Ekta Lundberghocytes/100 WBC (Bld)17.3 %Critically low20.5-60.0The [facility] HospitalComment on above:Performed By: #### CBC #### [facility] [address] [place] [address] Dr. Ekta MaloneUAL DIFF REQNONormalThe [facility] HospitalComment on above: Performed By: #### CBC #### [facility] [address] [place] [address] Dr. Ekta Oconnor (RBC) [Entitic mass]32.1 naGbzsru48.7-34.0The [facility] HospitalComment on above:Performed By: #### CBC #### [facility] [address] [place] [address] Dr. Ekta Oconnor (RBC) [Mass/Vol]34.3 g/sXVzysnz53.9-35.2The [facility] HospitalComment on above:Performed By: #### CBC #### [facility] [address] [place] [address] Dr. Ekta OconnorV (RBC) [Entitic vol]93.7 sYEdfvqv68.0-99.0The [facility] Troyment on above:Performed By: #### CBC #### [facility] [address] [place] [address] Dr. Ekta Rivas #0.6 103/ulNormal0.3-0.8The [facility] HospitalComment on above:Performed By: #### CBC #### [facility] [address] [place] [address] Dr. Ekta Perkinsocytes/100 WBC (Bld)6.4 %Normal1.7-12.0The [facility] Comment on above:Performed By: #### CBC #### [facility] [address] [place] [address] Dr. Ekta Salazar #7.4 103/ulCritically high1.4-6.5The [facility] Comment on above:Performed By: #### CBC #### [facility] [address] [place] [address] Dr. Ekta Dimasutrophils/100 WBC (Bld)74.4 %Bcisre40.0-75.0The [facility] HospitalComment on above:Performed By: #### CBC #### [facility] [address] [place] [address] Dr. Ekta Salomonlet mean volume (Bld) [Entitic vol]9.8 fLNormal9.5-13.5The [facility] HospitalComment on above:Performed By: #### CBC #### [facility] [address] [place] [address] Dr. Ekta FunkPLT193 103/wpIfbnry680-121Zho [facility] HospitalComment on above: Performed By: #### CBC #### [facility] [address] [place] [address] Dr. Ekta FunkRBC4.14 106/ulCritically low4.20-5.40The [facility] HospitalComment on above:Performed By: #### CBC #### [facility] [address] [address] [address] Ekta FunkWBC9.9 103/ulNormal4.0-11.0The [facility] HospitalComment on above: Performed By: #### CBC #### [facility] [address] [address] [address] Ekta FunkPROF 14(COMP METB)on 41-08-8358Csxjrge [Mass/Vol]3.2 g/dL Critically low3.4-5.0The [facility] HospitalComment on above:Performed By: #### INSULIN #### [facility] [address] [place] [address] Dr. Ekta FunkAlbumin/Globulin [Mass ratio]0.8 {ratio}NormalThe [facility] HospitalComment on above:Performed By: #### INSULIN #### [facility] [address] [place] [address] Dr. Ekta AlcantaraP [Catalytic activity/Vol]82 U/BHwckir48-876Mhs [facility] HospitalComment on above:Performed By: #### INSULIN #### [facility] [address] [place] [address] Dr. Ekta Mccormick [Catalytic activity/Vol]38 U/PKrwfij42-91Igl [facility] HospitalComment on above:Performed By: #### INSULIN #### [facility] [address] [place] [address] Dr. Ekta Harrison gap [Moles/Vol]19.1 mmol/LNormalThe [facility] Comment on above:Performed By: #### INSULIN #### [facility] [address] [place] [address] Dr. Ekta FunkAST [Catalytic activity/Vol]19 U/HPsrixu15-43Gjj [facility] HospitalComment on above:Performed By: #### INSULIN #### [facility] [address] [place] [address] Dr. Ekta FunkBilirubin [Mass/Vol]0.4 mg/dLNormal0.2-1.0The [facility] Comment on above:Performed By: #### INSULIN #### [facility] [address] [address] [address] Ekta FunkCalcium [Mass/Vol]9.2 mg/dLNormal8.5-10.1The [facility] Comment on above:Performed By: #### INSULIN #### [facility] [address] [address] [address] Ekta FunkChloride [Moles/Vol]98 mmol/QElfwao09-161Jst [facility] Comment on above:Performed By: #### INSULIN #### [facility] [address] [address] [address] Ekta FunkCO2 [Moles/Vol]26.4 mmol/EGkagpz76.0-32.0The [facility] Comment on above:Performed By: #### INSULIN #### [facility] [address] [address] [address] Ekta FunkCreatinine [Mass/Vol]2.20 mg/dLCritically high0.55-1.02The [facility] HospitalComment on above:Performed By: #### INSULIN #### [facility] [address] [address] [address] Dash ChangEGFR-AF RLMIVQYE34 mL/min/1.34a9Wsmtbnmzsw low>=60The [facility] HospitalComment on above:Performed By: #### INSULIN #### [facility] [address] [address] [address] Ekta AbebeGFR-NON AF SMHMFPLH57 mL/min/1.02v6Gmyzeudqjy low>=60The [facility] HospitalComment on above:Performed By: #### INSULIN #### [facility] [address] [address] [address] Ekta FunkGlobulin (S) [Mass/Vol]3.8 g/dLNormalThe [facility] HospitalComment on above:Performed By: #### INSULIN #### [facility] [address] [address] [address] Ekta FunkGlucose [Mass/Vol]142 mg/dLCritically rrgc08-416Rni [facility] HospitalComment on above:Performed By: #### INSULIN #### [facility] [address] [address] [address] Ekta FunkPotassium [Moles/Vol]4.5 mmol/LNormal3.5-5.1The [facility] Comment on above:Performed By: #### INSULIN #### [facility] [address] [address] [address] Ekta FunkProtein [Mass/Vol]7.0 g/dLNormal6.4-8.2The [facility] Comment on above:Performed By: #### INSULIN #### [facility] [address] [address] [address] Ekta FunkSodium [Moles/Vol]139 mmol/MDaqtzd616-128Etg [facility] Comment on above:Performed By: #### INSULIN #### [facility] [address] [address] [address] Ekta FunkUrea nitrogen [Mass/Vol]57.0 mg/dLCritically high7.0-18.0The [facility] HospitalComment on above:Performed By: #### INSULIN #### [facility] [address] [address] [address] Ekta FunkUrea nitrogen/Creatinine [Mass ratio]25.9 mg/mgNormalThe [facility] HospitalComment on above:Performed By: #### INSULIN #### [facility] [address] [address] [address] Ekta FunkT3, TOTAL (TRIIODOTHYRONINE)on 59-66-7000Y0, TOTAL63 ng/dL Critically wgq24-121Pmz [facility] HospitalComment on above:Performed By: #### CMP #### [facility] [address] [address] [address] Ekta FunkXR ABD FLAT_UPon 88-31-1083OF ABD FLAT_UPEXAMINATION: XR ABD FLAT_UP HISTORY: Generalized abdominal pain , shortness of breath COMPARISON: No relevant comparison available. FINDINGS: BOWEL GAS PATTERN: Non-obstructed. FREE AIR: None. CALCIFICATIONS: None significant. BONES: Mild left convex curvature lumbar spine. No appreciable fracture. OTHER: Negative. IMPRESSION: 1. Normal bowel gas pattern. No suspicious abdominal findings. Electronically authenticated by: DANIEL PINEDA Date: 2022-10-21 11:42[facility] SystemXR CHEST 2 Von [id number] CHEST 2 VEXAM: XR CHEST 2 V, [...] Electronically authenticated by: CHRISTIANO MORALES Date: 2022-10-21 11:23[facility] SystemBNPon 32-88-6634Ofeieoqesze peptide B (Bld) [Mass/Vol]2512.0 pg/mLCritically high<=900.0The [facility] HospitalComment on above:Performed By: #### B12FOL, VITAD, IRON #### [facility] [address] [address] [address] Ekta Hale BRITTANIE ADMITon 61-30-6608CF [Catalytic activity/Vol]35 U/L Flblev00-234HfaMercy Health Defiance HospitalComment on above:Performed By: #### B12FOL, VITAD, IRON #### [facility] [address] [address] [address] Ekta Howell.MB [Mass/Vol]0.64 ng/mLNormal<=3.60[facility] Comment on above:Performed By: #### B12FOL, VITAD, IRON #### [facility] [address] [address] [address] Ekta Carlisle28.1 pg/mLNormal4.0-51.3The [facility] HospitalComment on above:Result Comment: CUT-OFF POINTS HAVE BEEN ESTABLISHED BASED ON THE FOURTH UNIVERSAL DEFINITIONS OF MYOCARDIAL INFARCTION. THE UPPER REFERENCE LIMIT (URL) OF TROPONIN, DEFINED THE 99TH PERCENTILE OF cTnI DISTRIBUTION IN A REFERENCE POPULATION, HAS BEEN CONFIRMED THE DECISION THRESHOLD FOR OR DIAGNOSIS.Performed By: #### B12FOL, VITAD, IRON #### [facility] [address] [place] [address] Dr. Ekta FunkMYO57 ng/mLNormal9-82The [facility] HospitalComment on above: Performed By: #### B12FOL, VITAD, IRON #### [facility] [address] [place] [address] Dr. Ekta Agarwal AUTO DIFFon [id number] #0.0 103/ulNormal0.0-0.1The [facility] HospitalComment on above:Performed By: #### CBC #### [facility] [address] [place] [address] Dr. Ekta FunkBasophils/100 WBC (Bld)0.2 %Normal0.2-2.0[facility] Comment on above:Performed By: #### CBC #### [facility] [address] [place] [address] Dr. Ekta Anthony #0.2 103/ulNormal0.0-0.7The [facility] HospitalComment on above: Performed By: #### CBC #### [facility] [address] [place] [address] Dr. Ekta Abebeosinophils/100 WBC (Bld)1.4 %Normal0.9-7.0[facility] Comment on above:Performed By: #### CBC #### [facility] [address] [place] [address] Dr. Ekta Abeberythrocyte distribution width (RBC) [Ratio]12.9 %Qsxsja53.0-15.0 [facility] HospitalComment on above:Performed By: #### CBC #### [facility] [address] [place] [address] Dr. Ekta FunkHematocrit (Bld) [Volume fraction]34.7 %Critically low36.0-48.0 The [facility] HospitalComment on above:Performed By: #### CBC #### [facility] [address] [place] [address] Dr. Yilan ChangHemoglobin (Bld) [Mass/Vol]11.8 g/dLCritically low12.0-16.0The [facility] HospitalComment on above:Performed By: #### CBC #### [facility] [address] [place] [address] Dr. Ekta Olivares #0.09 10e3/ulCritically high0.00-0.03The [facility] Comment on above:Performed By: #### CBC #### [facility] [address] [place] [address] Dr. Ekta Olivares %0.8 %Critically high0.0-0.5The [facility] HospitalComment on above:Performed By: #### CBC #### [facility] [address] [place] [address] Dr. Ekta Putnam #1.9 103/ulNormal1.2-3.8The [facility] HospitalComment on above:Performed By: #### CBC #### [facility] [address] [place] [address] Dr. Ekta Lundberghocytes/100 WBC (Bld)16.1 %Critically low20.5-60.0The [facility] HospitalComment on above:Performed By: #### CBC #### [facility] [address] [place] [address] Dr. Ekta Beckham DIFF REQNONormalThe [facility] HospitalComment on above: Performed By: #### CBC #### [facility] [address] [place] [address] Dr. Ekta Frye (RBC) [Entitic mass]32.6 uaCwewji85.7-34.0The [facility] HospitalComment on above:Performed By: #### CBC #### [facility] [address] [place] [address] Dr. Ekta Oconnor (RBC) [Mass/Vol]34.0 g/kAPzkpev15.9-35.2The [facility] HospitalComment on above:Performed By: #### CBC #### [facility] [address] [place] [address] Dr. Ekta OconnorV (RBC) [Entitic vol]95.9 jDRrzwrj79.0-99.0The [facility] HospitalComment on above:Performed By: #### CBC #### [facility] [address] [place] [address] Dr. Ekta Rivas #0.8 103/ulNormal0.3-0.8The [facility] HospitalComment on above:Performed By: #### CBC #### [facility] [address] [place] [address] Dr. Ekta Perkinsocytes/100 WBC (Bld)7.0 %Normal1.7-12.0The [facility] Comment on above:Performed By: #### CBC #### [facility] [address] [place] [address] Dr. Ekta Salazar #8.8 103/ulCritically high1.4-6.5The [facility] Comment on above:Performed By: #### CBC #### [facility] [address] [place] [address] Dr. Ekta Dimasutrophils/100 WBC (Bld)74.5 %Oaskpy47.0-75.0The [facility] HospitalComment on above:Performed By: #### CBC #### [facility] [address] [place] [address] Dr. Ekta Trevino mean volume (Bld) [Entitic vol]9.8 fLNormal9.5-13.5The [facility] HospitalComment on above:Performed By: #### CBC #### [facility] [address] [place] [address] Dr. Ekta FunkPLT203 103/xfVfdgth982-795Fhl [facility] HospitalComment on above: Performed By: #### CBC #### [facility] [address] [place] [address] Dr. Ekta FunkRBC3.62 106/ulCritically low4.20-5.40The [facility] HospitalComment on above:Performed By: #### CBC #### [facility] [address] [place] [address] Dr. Ekta FunkWBC11.8 103/ulCritically high4.0-11.0The [facility] HospitalComment on above:Performed By: #### CBC #### [facility] [address] [address] [address] Ekta FunkCULTURE URINEon 12-46-1867PFACNVS URINECulture Observations: NO GROWTH.NormalThe [facility] HospitalComment on above:Performed By: #### INSULIN #### [facility] [address] [address] [address] Ekta FunkCovid-19 PCR ([facility])on 53-58-8354QGWO-CoV-2 (COVID-19) RNA GANESH+probe Ql (Unsp spec)Not detectedNormalNOT DETECTEDThe [facility] Comment on above:Result Comment: When diagnostic [...] for this test is supported by the [place] of [employer] and Human Service's declaration that [...] #### B12FOL, VITAD, IRON #### [facility] [address] [address] [address] Ekta AbebeCHOCARDIO M/2D COMPLETEon [id number] M/2D COMPLETE Patient: SHEILA MAC Exam Date: 10/20/2022 : 1950 Gender:F Ordering : DR KRZYSZTOF THOMPSON . Admission #: [id number] Family : Order #: [id number] CLICK HERE TO VIEW EXAM ECHOCARDIOGRAM REPORT [...] by: Sylwia Mckay M.D. on 10/20/2022 at 14:57[facility] SystemPROF 14(COMP METB)on 35-56-9758Ttuacaz [Mass/Vol]2.8 g/dLCritically low 3.4-5.0The [facility] HospitalComment on above:Performed By: #### B12FOL, VITAD, IRON #### [facility] [address] [place] [address] Dr. Ekta FunkAlbumin/Globulin [Mass ratio]0.7 {ratio}NormalThe [facility] HospitalComment on above:Performed By: #### B12FOL, VITAD, IRON #### [facility] [address] [address] [address] Ekta Cowart [Catalytic activity/Vol]84 U/NJalsrg05-452Eny [facility] on above:Performed By: #### B12FOL, VITAD, IRON #### [facility] [address] [address] [address] Ekta Mccormick [Catalytic activity/Vol]29 U/CIqrrdn09-63Jtp [facility] Troyment on above:Performed By: #### B12FOL, VITAD, IRON #### [facility] [address] [address] [address] Ekta Mcleodon gap [Moles/Vol]15.9 mmol/LNormalMercy Health [facility] Hospital Comment on above:Performed By: #### B12FOL, VITAD, IRON #### [facility] [address] [place] [address] Dr. Ekta FunkAST [Catalytic activity/Vol]15 U/AQsuioa64-89CkbMercy Health Defiance HospitalComment on above:Performed By: #### B12FOL, VITAD, IRON #### [facility] [address] [place] [address] Dr. Ekta FunkBilirubin [Mass/Vol]0.3 mg/dLNormal0.2-1.0[facility] Comment on above:Performed By: #### B12FOL, VITAD, IRON #### [facility] [address] [place] [address] Dr. Ekta FunkCalcium [Mass/Vol]8.9 mg/dLNormal8.5-10.1[facility] Comment on above:Performed By: #### B12FOL, VITAD, IRON #### [facility] [address] [place] [address] Dr. Ekta FunkChloride [Moles/Vol]103 mmol/MQgbfxt59-586ZlsMercy Health Defiance Hospital Comment on above:Performed By: #### B12FOL, VITAD, IRON #### [facility] [address] [place] [address] Dr. Ekta FunkCO2 [Moles/Vol]26.3 mmol/UCvmqlm78.0-32.0[facility] Comment on above:Performed By: #### B12FOL, VITAD, IRON #### [facility] [address] [place] [address] Dr. Ekta FunkCreatinine [Mass/Vol]1.99 mg/dLCritically high0.55-1.02The [facility] HospitalComment on above:Performed By: #### B12FOL, VITAD, IRON #### [facility] [address] [place] [address] Dr. Ekta AbebeGFR-AF OAKTBWEC65 mL/min/1.66g8Blroedehpp low>=60The [facility] HospitalComment on above:Performed By: #### B12FOL, VITAD, IRON #### [facility] [address] [place] [address] Dr. Ekta AbebeGFR-NON AF AWBAQPRX68 mL/min/1.48y1Scigjikozh low>=60The [facility] HospitalComment on above:Performed By: #### B12FOL, VITAD, IRON #### [facility] [address] [place] [address] Dr. Ekta FunkGlobulin (S) [Mass/Vol]4.1 g/dLNormalThe [facility] HospitalComment on above:Performed By: #### B12FOL, VITAD, IRON #### [facility] [address] [place] [address] Dr. Ekta FunkGlucose [Mass/Vol]115 mg/dLCritically jfwd06-081TtaMercy Health Defiance HospitalComment on above:Performed By: #### B12FOL, VITAD, IRON #### [facility] [address] [place] [address] Dr. Ekta FunkPotassium [Moles/Vol]5.2 mmol/LCritically high3.5-5.1[facility] HospitalComment on above:Performed By: #### B12FOL, VITAD, IRON #### [facility] [address] [place] [address] Dr. Ekta FunkProtein [Mass/Vol]6.9 g/dLNormal6.4-8.2[facility] Comment on above:Performed By: #### B12FOL, VITAD, IRON #### [facility] [address] [place] [address] Dr. Ekta FunkSodium [Moles/Vol]140 mmol/GSfywwd832-643DqqMercy Health Defiance Hospital Comment on above:Performed By: #### B12FOL, VITAD, IRON #### [facility] [address] [address] [address] Ekta Spring nitrogen [Mass/Vol]45.0 mg/dLCritically high7.0-18.0The [facility] HospitalComment on above:Performed By: #### B12FOL, VITAD, IRON #### [facility] [address] [place] [address] Dr. Ekta Spring nitrogen/Creatinine [Mass ratio]22.6 mg/mgNormalThe [facility] HospitalComment on above:Performed By: #### B12FOL, VITAD, IRON #### [facility] [address] [place] [address] Dr. Ekta Cloud4on 18-97-7125G3 [Mass/Vol]6.10 ug/dLNormal4.80-13.90The [facility] HospitalComment on above:Performed By: #### B12FOL, VITAD, IRON #### [facility] [address] [place] [address] Dr. Ekta Carmona 19-53-5811WTV3.336 uIU/mLNormal0.358-3.740The [facility] Troyment on above:Performed By: #### B12FOL, VITAD, IRON #### [facility] [address] [place] [address] Dr. Ekta Camejo RANDOM W/MICROSCOPICon 85-46-7239XFGGJOHKCKEBZTdgzkkkhYVPF SEENThe [facility] HospitalComment on above:Performed By: #### B12FOL, VITAD, IRON #### [facility] [address] [place] [address] Dr. Ekta Emeryirubin Ql (U)NegativeNormalNEGATIVEThe [facility] Comment on above:Performed By: #### B12FOL, VITAD, IRON #### [facility] [address] [place] [address] Dr. Ekta Velasquez SEENNormalNONE SEENThe [facility] HospitalComment on above:Performed By: #### B12FOL, VITAD, IRON #### [facility] [address] [place] [address] Dr. Ekta FunkClarity (U)CLEARNormalCLEARMercy Health Defiance HospitalComment on above: Performed By: #### B12FOL, VITAD, IRON #### [facility] [address] [address] [address] Ekta Suttonlor (U)LT. YELLOWNormalYELLOWMercy Health Defiance HospitalComment on above:Performed By: #### B12FOL, VITAD, IRON #### [facility] [address] [address] [address] Ekta FunkCrystals LM Nom (Urine sed)NONE SEENNormalNONE SEENMercy Health Defiance HospitalComment on above:Performed By: #### B12FOL, VITAD, IRON #### [facility] [address] [place] [address] Dr. Dash ChangEpithelial cells LM Ql (Urine sed)RARENormalNONE SEEN /RAREThe [facility] HospitalComment on above:Performed By: #### B12FOL, VITAD, IRON #### [facility] [address] [place] [address] Dr. Ekta FunkGlucose Ql (U)NegativeNormalNEGATIVEMercy Health Defiance HospitalComment on above:Performed By: #### B12FOL, VITAD, IRON #### [facility] [address] [place] [address] Dr. Ekta FunkHemoglobin Ql (U)NegativeNormalNEGATIVEMercy Health [facility] Hospital Comment on above:Performed By: #### B12FOL, VITAD, IRON #### [facility] [address] [place] [address] Dr. Ekta FunkKetones Ql (U)NegativeNormalNEGATIVEMercy Health Defiance HospitalComment on above:Performed By: #### B12FOL, VITAD, IRON #### [facility] [address] [place] [address] Dr. Ekta FunkLEUKOCYTESNegativeNormalNEGATIVEMercy Health Defiance HospitalComment on above:Performed By: #### B12FOL, VITAD, IRON #### [facility] [address] [address] [address] Ekta BlantonUSJAMIE SEENNormalNONE SEENMercy Health Defiance HospitalComment on above:Performed By: #### B12FOL, VITAD, IRON #### [facility] [address] [address] [address] Ekta Long Ql (U)NegativeNormalNEGATIVEThe [facility] HospitalComment on above:Performed By: #### B12FOL, VITAD, IRON #### [facility] [address] [address] [address] Ekta FnukpH (U)6.0 [pH]Normal5-9The [facility] HospitalComment on above: Performed By: #### B12FOL, VITAD, IRON #### [facility] [address] [place] [address] Dr. Ekta FunkFuprrNAM4-9Lsfucg7-5Vyu [facility] HospitalComment on above:Performed By: #### B12FOL, VITAD, IRON #### [facility] [address] [place] [address] Dr. Ekta FunkSPEC GRAVITY<=1.761Qvbmmaly9.005-<=1.025The [facility] Comment on above:Performed By: #### B12FOL, VITAD, IRON #### [facility] [address] [place] [address] Dr. Ekta Camejo PROTEINNegativeNormalNEGATIVE/ TRACEThe [facility] Comment on above:Performed By: #### B12FOL, VITAD, IRON #### [facility] [address] [place] [address] Dr. Ekta Lugo Qn (U)0.2 {Ivan'U}/dLNormal0.2 - 1.0The [facility] HospitalComment on above:Performed By: #### B12FOL, VITAD, IRON #### [facility] [address] [place] [address] Dr. Ekta LeonardoBCJAMIE SEENNormalNONE SEENThe [facility] HospitalComment on above: Performed By: #### B12FOL, VITAD, IRON #### [facility] [address] [address] [address] Ekta LopezPon 29-12-3378Cufjfpvhahg peptide B (Bld) [Mass/Vol]1355.0 pg/mLCritically high<=900.0The [facility] HospitalComment on above:Performed By: #### B12FOL, VITAD, IRON #### [facility] [address] [address] [address] Ekta FunkINSULINon 88-49-5646Ouheltr07.4 uIU/mLNormal2.6-24.9The [facility] HospitalComment on above:Performed By: #### INSULIN #### [facility] [address] [place] [address] Dr. Ekta FunkOCC BLD IMMUNO SCREENon 63-01-2478VUEKLR BLOODPositiveAbnormal NEGATIVEThe [facility] HospitalComment on above:Performed By: #### B12FOL, VITAD, IRON #### [facility] [address] [place] [address] Dr. Ekta FunkPROF CHEM 8 (BAS METB)on 29-44-8101Cufdy gap [Moles/Vol]15.8 mmol/LNormalMercy Health Defiance HospitalComment on above:Performed By: #### B12FOL, VITAD, IRON #### [facility] [address] [place] [address] Dr. Ekta FunkCalcium [Mass/Vol]8.8 mg/dLNormal8.5-10.1The [facility] Comment on above:Performed By: #### B12FOL, VITAD, IRON #### [facility] [address] [place] [address] Dr. Ekta FunkChloride [Moles/Vol]107 mmol/XGrgkwz37-528Eta [facility] Comment on above:Performed By: #### B12FOL, VITAD, IRON #### [facility] [address] [place] [address] Dr. Ekta FunkCO2 [Moles/Vol]21.5 mmol/AUfruwp89.0-32.0The [facility] Comment on above:Performed By: #### B12FOL, VITAD, IRON #### [facility] [address] [address] [address] Ekta FunkCreatinine [Mass/Vol]1.62 mg/dLCritically high0.55-1.02The [facility] HospitalComment on above:Performed By: #### B12FOL, VITAD, IRON #### [facility] [address] [place] [address] Dr. Ekta AbebeGFR-AF NPZEQHRP16 mL/min/1.74w2Zsaypbjidp low>=60The [facility] HospitalComment on above:Performed By: #### B12FOL, VITAD, IRON #### [facility] [address] [place] [address] Dr. Ekta AbebeGFR-NON AF DMFRMTBZ33 mL/min/1.24i2Itaojvxhdk low>=60The [facility] HospitalComment on above:Performed By: #### B12FOL, VITAD, IRON #### [facility] [address] [place] [address] Dr. Ekta FunkGlucose [Mass/Vol]134 mg/dLCritically rnpn12-976Jvs [facility] HospitalComment on above:Performed By: #### B12FOL, VITAD, IRON #### [facility] [address] [place] [address] Dr. Ekta FunkPotassium [Moles/Vol]5.3 mmol/LCritically high3.5-5.1The [facility] HospitalComment on above:Performed By: #### B12FOL, VITAD, IRON #### [facility] [address] [place] [address] Dr. Ekta FunkSodium [Moles/Vol]139 mmol/XGdlmdm166-671Pml [facility] Comment on above:Performed By: #### B12FOL, VITAD, IRON #### [facility] [address] [place] [address] Dr. Ekta FunkUrea nitrogen [Mass/Vol]37.0 mg/dLCritically high7.0-18.0The [facility] HospitalComment on above:Performed By: #### B12FOL, VITAD, IRON #### [facility] [address] [place] [address] Dr. Ekta Spring nitrogen/Creatinine [Mass ratio]22.8 mg/mgNormalThe [facility] HospitalComment on above:Performed By: #### B12FOL, VITAD, IRON #### [facility] [address] [place] [address] Dr. Ekta Rich, HIGH SENSITIVITYon 78-28-3569DEBRZV70.2 pg/mLCritically high4.0-51.3TProtestant HospitalComment on above:Result Comment: CUT-OFF POINTS HAVE BEEN ESTABLISHED BASED ON THE FOURTH UNIVERSAL DEFINITIONS OF MYOCARDIAL INFARCTION. THE UPPER REFERENCE LIMIT (URL) OF TROPONIN, DEFINED THE 99TH PERCENTILE OF cTnI DISTRIBUTION IN A REFERENCE POPULATION, HAS BEEN CONFIRMED THE DECISION THRESHOLD FOR OR DIAGNOSIS.Performed By: #### B12FOL, VITAD, IRON #### [facility] [address] [place] [address] Dr. Ekta Vaughan 25-84-0045Zwsejhpurnt peptide B (Bld) [Mass/Vol]1386.0 pg/mLCritically high<=900.0The [facility] HospitalComment on above:Performed By: #### CVDTBH #### [facility] [address] [place] [address] Dr. Ekta Hale BRITTANIE ADMITon 11-04-0333JA [Catalytic activity/Vol]34 U/L Rnswil79-014LbcMercy Health Defiance HospitalComment on above:Performed By: #### CVDTBH #### [facility] [address] [place] [address] Dr. Ekta Howell.MB [Mass/Vol]1.43 ng/mLNormal<=3.60[facility] Comment on above:Performed By: #### CVDTBH #### [facility] [address] [place] [address] Dr. Ekta FunkHSTROP74.1 pg/mLCritically high4.0-51.3TProtestant Hospital Comment on above:Result Comment: CUT-OFF POINTS HAVE BEEN ESTABLISHED BASED ON THE FOURTH UNIVERSAL DEFINITIONS OF MYOCARDIAL INFARCTION. THE UPPER REFERENCE LIMIT (URL) OF TROPONIN, DEFINED THE 99TH PERCENTILE OF cTnI DISTRIBUTION IN A REFERENCE POPULATION, HAS BEEN CONFIRMED THE DECISION THRESHOLD FOR OR DIAGNOSIS.Performed By: #### CVDTBH #### [facility] [address] [place] [address] Dr. Ekta CampO52 ng/mLNormal9-82The [facility] HospitalComment on above: Performed By: #### CVDTBH #### [facility] [address] [place] [address] Dr. Ekta Agarwal AUTO DIFFon 67-31-2474VEJV #0.0 103/ulNormal0.0-0.1The [facility] HospitalComment on above:Performed By: #### CBC #### [facility] [address] [place] [address] Dr. Ekta FunkBasophils/100 WBC (Bld)0.3 %Normal0.2-2.0[facility] Comment on above:Performed By: #### CBC #### [facility] [address] [place] [address] Dr. Ekta Anthony #0.1 103/ulNormal0.0-0.7The [facility] HospitalComment on above: Performed By: #### CBC #### [facility] [address] [place] [address] Dr. Ekta Abebeosinophils/100 WBC (Bld)0.9 %Normal0.9-7.0[facility] Comment on above:Performed By: #### CBC #### [facility] [address] [place] [address] Dr. Ekta Abeberythrocyte distribution width (RBC) [Ratio]13.2 %Kwvrgm84.0-15.0 [facility] HospitalComment on above:Performed By: #### CBC #### [facility] [address] [place] [address] Dr. Ekta FunkHematocrit (Bld) [Volume fraction]38.9 %Rotpfx53.0-48.0The [facility] HospitalComment on above:Performed By: #### CBC #### [facility] [address] [address] [address] Ekta FunkHemoglobin (Bld) [Mass/Vol]12.4 g/iSOecrno25.0-16.0The [facility] HospitalComment on above:Performed By: #### CBC #### [facility] [address] [place] [address] Dr. Ekta Olivares #0.08 10e3/ulCritically high0.00-0.03The [facility] Comment on above:Performed By: #### CBC #### [facility] [address] [place] [address] Dr. Ekta Olivares %0.5 %Normal0.0-0.5The [facility] HospitalComment on above: Performed By: #### CBC #### [facility] [address] [place] [address] Dr. Ekta Putnam #1.4 103/ulNormal1.2-3.8The [facility] HospitalComment on above:Performed By: #### CBC #### [facility] [address] [place] [address] Dr. Ekta Lundberghocytes/100 WBC (Bld)9.6 %Critically low20.5-60.0The [facility] HospitalComment on above:Performed By: #### CBC #### [facility] [address] [place] [address] Dr. Ekta MaloneUAL DIFF REQNONormalThe [facility] HospitalComment on above: Performed By: #### CBC #### [facility] [address] [place] [address] Dr. Ekta Oconnor (RBC) [Entitic mass]32.3 dbRuqgiv45.7-34.0The [facility] HospitalComment on above:Performed By: #### CBC #### [facility] [address] [place] [address] Dr. Ekta Oconnor (RBC) [Mass/Vol]31.9 g/pMMnpflr09.9-35.2The [facility] HospitalComment on above:Performed By: #### CBC #### [facility] [address] [address] [address] Ekta OconnorV (RBC) [Entitic vol]101.3 fLCritically high81.0-99.0The [facility] HospitalComment on above:Performed By: #### CBC #### [facility] [address] [address] [address] Ekta Rivas #0.9 103/ulCritically high0.3-0.8The [facility] Comment on above:Performed By: #### CBC #### [facility] [address] [address] [address] Ekta Perkinsocytes/100 WBC (Bld)6.3 %Normal1.7-12.0[facility] Comment on above:Performed By: #### CBC #### [facility] [address] [place] [address] Dr. Ekta DimasUT #12.0 103/ulCritically high1.4-6.5The [facility] Comment on above:Performed By: #### CBC #### [facility] [address] [place] [address] Dr. Ekta Dimasutrophils/100 WBC (Bld)82.4 %Critically high43.0-75.0The [facility] HospitalComment on above:Performed By: #### CBC #### [facility] [address] [place] [address] Dr. Ekta Salomonlet mean volume (Bld) [Entitic vol]9.7 fLNormal9.5-13.5The [facility] HospitalComment on above:Performed By: #### CBC #### [facility] [address] [place] [address] Dr. Ekta FunkPLT176 103/zkOogeyh593-859Lzd [facility] HospitalComment on above: Performed By: #### CBC #### [facility] [address] [place] [address] Dr. Ekta FunkRBC3.84 106/ulCritically low4.20-5.40The [facility] HospitalComment on above:Performed By: #### CBC #### [facility] [address] [address] [address] Ekta FunkWBC14.6 103/ulCritically high4.0-11.0The [facility] HospitalComment on above:Performed By: #### CBC #### [facility] [address] [address] [address] Ekta Correa THYROXINE INDEX T7on 71-52-1593LSA0.49Dxzneo8.30-4.50The [facility] HospitalComment on above:Performed By: #### CVDTBH #### [facility] [address] [address] [address] Ekta FunkT3U36.0 %Hbpxab53.0-39.0The [facility] HospitalComment on above: Performed By: #### CVDTBH #### [facility] [address] [address] [address] Ekta FunkT4 [Mass/Vol]6.50 ug/dLNormal4.80-13.90The [facility] Comment on above:Performed By: #### CVDTBH #### [facility] [address] [address] [address] Ekta FunkGLYCOHEMOGLOBIN A1Con 20-37-2727KAC RECOMMENDATIONSEE BELOWNormal The [facility] HospitalCommarlette [facility] hospital on above:Result Comment: ADA RECOMMENDED LIMIT 4.0 - 6.0 ADA THERAPEUTIC TARGET < 7.0 ACTION SUGGESTED > 7.0Performed By: #### B12FOL, VITAD, IRON #### [facility] [address] [place] [address] Dr. Ekta FunkGlucose [Mass/Vol]140 mg/dLNormalThe [facility] HospitalComment on above:Performed By: #### B12FOL, VITAD, IRON #### [facility] [address] [place] [address] Dr. Ekta FunkHbA1c (Bld) [Mass fraction]6.5 %Critically high4.5-6.2The [facility] HospitalComment on above:Performed By: #### B12FOL, VITAD, IRON #### [facility] [address] [address] [address] Ekta Shannon 79-34-5836Opnq [Mass/Vol]62.0 ug/pHWcaduy05.0-170.0The [facility] on above:Performed By: #### B12FOL, VITAD, IRON #### [facility] [address] [address] [address] Ekta FunkLIPID PROFILEon 05-96-9712BBAB-HDL RATIO NORMSEE [facility]Com[facility] on above:Result Comment: 3.3 - 4.4 LOW RISK 4.4 - 7.1 AVERAGE RISK 7.1 - 11.0 MODERATE RISK >11.0 HIGH RISKPerformed By: #### CVDTBH #### [facility] [address] [place] [address] Dr. Ekta FunkCholesterol [Mass/Vol]242 mg/dLCritically high<=200The [facility] on above:Performed By: #### CVDTBH #### [facility] [address] [address] [address] Ekta FunkCholesterol in HDL [Mass/Vol]74 mg/dLCritically hmwd60-58Fdg [facility] on above:Performed By: #### CVDTBH #### [facility] [address] [place] [address] Dr. Ekta FunkCholesterol in LDL [Mass/Vol]139.4 mg/dLKing's Daughters Medical Center [place] on above:Performed By: #### CVDTBH #### [facility] [address] [place] [address] Dr. Ekta Tejedaestertracy.total/Cholesterol in HDL [Mass ratio]3.3 {ratio} NormalThe [facility] on above:Performed By: #### CVDTBH #### [facility] [address] [place] [address] Dr. Ekta FunkHDHu NORMAL> or = 60 mg/dl - LOW CARDIOVASCULAR RISK <40 mg/dl - HIGH CARDIOVASCULAR RISKACMC Healthcare SystemComment on above:Performed By: #### CVDTBH #### [facility] [address] [address] [address] Ekta Navarro CALC NORMALSEE BELOWNoCincinnati Children's Hospital Medical CenterComment on above:Result Comment: <100 mg/dl OPTIMAL 100 - 129 mg/dl NEAR OR ABOVE OPTIMAL 130 - 159 mg/dl BORDERLINE HIGH 160 - 189 mg/dl HIGH >190 mg/dl VERY HIGH Performed By: #### CVDTBH #### [facility] [address] [address] [address] Ekta FunkTriglyceride [Mass/Vol]143 mg/dLNormal<=150The [facility] Comment on above:Performed By: #### CVDTBH #### [facility] [address] [place] [address] Dr. Ekta AnneLDL CALC28.6 mg/dLNoCincinnati Children's Hospital Medical CenterComment on above: Performed By: #### CVDTBH #### [facility] [address] [address] [address] Ekta uFnkPROF 14(COMP METB)on 73-41-2788Qzervge [Mass/Vol]2.8 g/dL Critically low3.4-5.0The [facility] on above:Performed By: #### CVDTBH #### [facility] [address] [place] [address] Dr. Ekta FunkAlbumin/Globulin [Mass ratio]0.7 {ratio}NormalThe [facility] HospitalComment on above:Performed By: #### CVDTBH #### [facility] [address] [place] [address] Dr. kEta Cowart [Catalytic activity/Vol]90 U/HLmmsjf22-511Lzz [facility] HospitalCommarlette [facility] hospital on above:Performed By: #### CVDTBH #### [facility] [address] [place] [address] Dr. Ekta Mccormick [Catalytic activity/Vol]26 U/CKsgdtq87-23Nrb [facility] on above:Performed By: #### CVDTBH #### [facility] [address] [address] [address] Ekta FunkAnion gap [Moles/Vol]14.5 mmol/LNormalMer[facility] Health [facility] Comment on above:Performed By: #### CVDTBH #### [facility] [address] [address] [address] Ekta FunkAST [Catalytic activity/Vol]14 U/LCritically fvi32-93Mxo [facility] HospitalComment on above:Performed By: #### CVDTBH #### [facility] [address] [place] [address] Dr. Ekta FunkBilirubin [Mass/Vol]0.4 mg/dLNormal0.2-1.0[facility] Comment on above:Performed By: #### CVDTBH #### [facility] [address] [place] [address] Dr. Ekta FunkCalcium [Mass/Vol]8.9 mg/dLNormal8.5-10.1[facility] Comment on above:Performed By: #### CVDTBH #### [facility] [address] [address] [address] Ekta FunkChloride [Moles/Vol]106 mmol/GSfqnwu17-968XgtMercy Health [facility] Hospital Comment on above:Performed By: #### CVDTBH #### [facility] [address] [place] [address] Dr. Ekta FunkCO2 [Moles/Vol]23.5 mmol/VOakavf11.0-32.0The [facility] Comment on above:Performed By: #### CVDTBH #### [facility] [address] [address] [address] Ekta FunkCreatinine [Mass/Vol]1.70 mg/dLCritically high0.55-1.02The [facility] HospitalComment on above:Performed By: #### CVDTBH #### [facility] [address] [address] [address] Dash ChangEGFR-AF WCRIAIDH86 mL/min/1.09w4Yzvvgtkbvn low>=60The [facility] HospitalComment on above:Performed By: #### CVDTBH #### [facility] [address] [address] [address] Ekta AbebeGFR-NON AF USBQMWKK30 mL/min/1.67b4Fbyldhffje low>=60The [facility] HospitalComment on above:Performed By: #### CVDTBH #### [facility] [address] [address] [address] Ekta FunkGlobulin (S) [Mass/Vol]4.0 g/dLNormalThMercy Health Tiffin HospitalComment on above:Performed By: #### CVDTBH #### [facility] [address] [address] [address] Ekta FunkGlucose [Mass/Vol]99 mg/zKVdyond32-609XrjMercy Health [facility] Hospital Comment on above:Performed By: #### CVDTBH #### [facility] [address] [address] [address] Ekta FunkPotassium [Moles/Vol]5.0 mmol/LNormal3.5-5.1The [facility] Comment on above:Performed By: #### CVDTBH #### [facility] [address] [address] [address] Ekta FunkProtein [Mass/Vol]6.8 g/dLNormal6.4-8.2[facility] Comment on above:Performed By: #### CVDTBH #### [facility] [address] [address] [address] Ekta FunkSodium [Moles/Vol]139 mmol/VZfkhjk135-844RraMercy Health Defiance Hospital Comment on above:Performed By: #### CVDTBH #### [facility] [address] [place] [address] Dr[address] Ekta FunkUrea nitrogen [Mass/Vol]36.0 mg/dLCritically high7.0-18.0The [facility] HospitalComment on above:Performed By: #### CVDTBH #### [facility] [address] [place] [address] [address] Ekta FunkUrea nitrogen/Creatinine [Mass ratio]21.2 mg/mgNormalThe [facility] HospitalComment on above:Performed By: #### CVDTBH #### [facility] [address] [place] [address] Dr. Ekta Carmona 85-35-6078DLG3.910 uIU/mLNormal0.358-3.740The [facility] on above:Performed By: #### CVDTBH #### [facility] [address] [place] [address] Dr. Ekta FunkCovid-19 PCR ([facility])on [id number]-CoV-2 (COVID-19) RNA GANESH+probe Ql (Unsp spec)DetectedAbnormalNOT DETECTEDThe [facility] on above:Result Comment: This test is not yet approved or cleared by the [place] FDA. When there are no FDA-approved or cleared tests available, and other criteria are met, FDA can make tests available under an emergency access mechanism called an Emergency Use Authorization (EUA). The EUA for this test is supported by the Yard Spotter of Health and Human Service's declaration that [...] used).Performed By: #### CMP #### [facility] [address] [place] [address] Dr. Ekta FunkINFLNGHIANZA A AND B AGon [id number] [facility] on above:Result Comment: Negative for Flu A protein angiten. Infection due to Flu A cannot be ruled out. FluA angiten in the sample may be below the detection limit of the test.Performed By: #### B12FOL, VITAD, IRON #### [facility] [address] [place] [address] [address] [facility] on above: Result Comment: Negative for Flu B protein antigen. Infection due to Flu B cannot be ruled out. FluB antigen in the sample may be below the detection limit of the test.Performed By: #### B12FOL, VITAD, IRON #### [facility] [address] [place] [address] Dr. Ekta Arguelles AGNegativeNormalNEGATIVE SEE COMMENTThe [facility] HospitalComment on above:Performed By: #### B12FOL, VITAD, IRON #### [facility] [address] [place] [address] [address] Ekta Rojas AGNegativeNormalNEGATIVE SEE COMMENTThe [facility] HospitalComment on above:Performed By: #### B12FOL, VITAD, IRON #### [facility] [address] [place] [address] Dr. Ekta Woody CAROTID ART BILon [id number] CAROTID ART BILEXAMINATION: US CAROTID ART ANGELIQUE [...] Electronically authenticated by: GODWIN BECK Date: 2022-05-26 16:[address] [place], [place] [address]MRI BRAIN WO CONon [id number] BRAIN WO CONEXAMINATION: MRI BRAIN WO CON, [...] Electronically authenticated by: DANIEL PINEDA Date: 2022-05-25 10:[address] [place], [place] [address]ECHOCARDIO M/2D COMPLETEon [id number] M/2D COMPLETE Patient: SHEILA MAC Exam Date: 05/24/2022 : 1950 Gender:F Ordering : DR KRZYSZTOF THOMPSON . Admission #: [id number] Family : Order #: [id number] CLICK HERE TO VIEW EXAM ECHOCARDIOGRAM REPORT [...] by: Sylwia Mckay M.D. on 05/24/2022 at 14:45[facility] METABOLIC PANELon 54-64-8783Uvzhgad mass conc9.4 mg/dLNormal 8.6-10.3The [facility] HospitalComment on above:Order Comment: No: Do not add to previous drawPerformed By: #### [id number] #### [facility] [address] [place] [address], USAChloride molar fauz612 mmol/JKpvz41-616Avo [facility] HospitalComment on above:Order Comment: No: Do not add to previous drawPerformed By: #### [id number] #### [facility] [address] [place] [address], [place]ACO2 molar conc22 mmol/OWkevxl36-76Qdb [facility] HospitalComment on above:Order Comment: No: Do not add to previous draw Performed By: #### [id number] #### [facility] [address] [place] [address], USACreatinine mass conc1.18 mg/dLNormal0.60-1.20The [facility] HospitalComment on above:Order Comment: No: Do not add to previous drawPerformed By: #### [id number] #### [facility] [address] [place] [address], USAGFR/1.73 sq M predicted among blacks MDRD vol rate/area (S/P/Bld)55 ml/min/1.73sq mAbnormal>60The [facility] Comment on above:Order Comment: No: Do not add to previous drawPerformed By: #### [id number] #### [facility] [address] [place] [address], USAGFR/1.73 sq M predicted among non-blacks MDRD vol rate/area (S/P/Bld)45 ml/min/1.73sq mAbnormal>60The [facility] Comment on above:Order Comment: No: Do not add to previous drawPerformed By: #### [id number] #### [facility] [address] [place] [address], USAGlucose mass kcxm891 mg/bCCfgz90-860Lwr [facility] HospitalComment on above:Order Comment: No: Do not add to previous drawPerformed By: #### [id number] #### [facility] [address] [place] [address], USAPotassium molar conc4.1 mmol/LNormal3.5-5.1The [facility] HospitalComment on above:Order Comment: No: Do not add to previous drawPerformed By: #### [id number] #### [facility] [address] [place] [address], USASodium molar zhlv651 mmol/RRksozf190-615Xhw [facility] HospitalComment on above:Order Comment: No: Do not add to previous drawPerformed By: #### [id number] #### [facility] [address] [place] [address], USAUrea nitrogen mass conc21 mg/dLNormal7-25The [facility] HospitalComment on above:Order Comment: No: Do not add to previous drawPerformed By: #### [id number] #### [facility] [address] [place] [address], USACBC COMPLETE BLOOD COUNTon 14-78-7465Rkhklenjbur distribution width Ratio (RBC)12.9 %Uldszw35.5-15.0The [facility] HospitalComment on above:Order Comment: No: Do not add to previous draw Performed By: #### [id number] #### [facility] [address] [facility] [place] [address], USAHematocrit Volume Fraction (Bld)36.7 %Iziand44.0-45.0The [facility] HospitalComment on above:Order Comment: No: Do not add to previous drawPerformed By: #### [id number] #### [facility] [address] [place] [address], USAHemoglobin mass conc (Bld)12.4 g/oPMufamn31.0-15.0The [facility] HospitalComment on above:Order Comment: No: Do not add to previous drawPerformed By: #### 95304 #### [facility] [address] [place] [address], [facility] [place] Entitic mass (RBC)31.2 mmBqbapq60.0-33.0The [facility] HospitalComment on above:Order Comment: No: Do not add to previous drawPerformed By: #### 91746 #### [facility] [address] [place] [address], [facility] mass conc (RBC)33.8 g/oXXsloly96.0-35.0The [facility] HospitalComment on above:Order Comment: No: Do not add to previous drawPerformed By: #### [id number] #### [facility] [address] [place] [address], [facility] Entitic volume (RBC)92.4 bURhfhov76.0-98.0The [facility] HospitalComment on above:Order Comment: No: Do not add to previous drawPerformed By: #### [id number] #### [facility] [address] [place] [address], [facility] CLINICNucleated RBC/100 WBC Ratio (Bld)0 %Normal0-0The [facility] HospitalComment on above:Order Comment: No: Do not add to previous drawPerformed By: #### [id number] #### [facility] [address] [place] [address], USAPLAT GWJ869 10*3/yCOvsycf516-275Hmp [facility] HospitalComment on above:Order Comment: No: Do not add to previous draw Performed By: #### 38530 #### [facility] [address] [place] [address], [facility] CLINICRBC #/vol (Bld)3.97 10*6/uLNormal3.80-5.00The [facility] HospitalComment on above:Order Comment: No: Do not add to previous drawPerformed By: #### 75229 #### [facility] [address] [place] [address], [facility] CLINICWBC #/vol (Bld)5.55 10*3/uLNormal4.00-10.60The [facility] HospitalComment on above:Order Comment: No: Do not add to previous drawPerformed By: #### 99320 #### [facility] [address] [facility] [place] [address], [facility] CLINICCardiovascular Lab Reporton [id number] Lab ReportUnGenesis Hospital Patient Name: [facility] Sheila MR #: [id number] Department of Physician: [facility] Shellie Gaspar M.D. Division of Service Date: 11/20/2018 Cardiology Birthdate: 1950 Adult Cardiovascular Room #: 3AB [id number] [facility] [address] [facility] [place] [address] Cardiovascular Laboratory Report INDICATION: The patient is a 68-year-old woman who was evaluated in Cardiology Clinic because of new onset symptoms of shortness of breath on mild exertion. Her stress test showed evidence of ygevx-ge-gijkjhmg area of inferoapical ischemia; because of that, she was referred for cardiac catheterization. PROCEDURES: 1. Right heart catheterization. 2. Bilateral selective coronary angiography. 3. Limited right femoral angiography. METHOD: Procedure was explained patient with risks and benefits. She signed informed consent. She was brought to microbiology lab manager in a fasting state. The right groin area was prepped and draped in usual fashion. Using micropuncture technique, the right common femoral artery was accessed. The inner cannula was advanced. Limited femoral angiography was performed followed by upsizing to a 6-Malaysian x 11 cm sheath. Access was also obtained using the same technique in the right common femoral vein and a 6-Malaysian x 11 cm sheath was placed. A 6-Malaysian Michel catheter was used for right heart catheterization with measurement of pressures and calculation of cardiac output using the estimated Ivory method. Michel catheter was removed. Bilateral selective coronary angiography was then performed using 6-Malaysian JL4 and JR4 diagnostic catheters. Catheters were [...] Gaspar M.D. Date Trans: 11/20/2018 09:31 A/alvina DN_JN:[id number] cc: Krzysztof Thompson M.D. [place] [id number] [facility] [place] [address]HpjktlByaMartin Memorial HospitalBASIC METABOLIC PANELon 04-89-2802Msqyydm mass conc9.5 mg/dLNormal8.6-10.3The [facility] HospitalComment on above:Order Comment: No: Do not add to previous drawPerformed By: #### [id number] #### [facility] [address] [place] [address], USAChloride molar laax312 mmol/SRnlqfg49-057Sgo [facility] HospitalComment on above:Order Comment: No: Do not add to previous drawPerformed By: #### [id number] #### [facility] [address] [place] [address], [place]ACO2 molar conc24 mmol/MRkglaq71-46Vpq [facility] HospitalComment on above:Order Comment: No: Do not add to previous draw Performed By: #### 22058 #### [facility] [address] [place] [address], USACreatinine mass conc1.42 mg/dLHigh0.60-1.20The [facility] HospitalComment on above:Order Comment: No: Do not add to previous drawPerformed By: #### [id number] #### [facility] [address] [place] [address], USAGFR/1.73 sq M predicted among blacks MDRD vol rate/area (S/P/Bld)45 ml/min/1.73sq mAbnormal>60The [facility] Comment on above:Order Comment: No: Do not add to previous drawPerformed By: #### [id number] #### [facility] [address] [place] [address], USAGFR/1.73 sq M predicted among non-blacks MDRD vol rate/area (S/P/Bld)36 ml/min/1.73sq mAbnormal>60The [facility] Comment on above:Order Comment: No: Do not add to previous drawPerformed By: #### [id number] #### [facility] [address] [place] [address], USAGlucose mass conc86 mg/kXLbkjse72-532Lhj [facility] HospitalComment on above:Order Comment: No: Do not add to previous drawPerformed By: #### 76813 #### [facility] [address] [place] [address], USAPotassium molar conc4.2 mmol/LNormal3.5-5.1The [facility] HospitalComment on above:Order Comment: No: Do not add to previous drawPerformed By: #### 95836 #### [facility] [address] [place] [address], USASodium molar belj846 mmol/NSoxxpf516-531Rmo [facility] HospitalComment on above:Order Comment: No: Do not add to previous drawPerformed By: #### 64331 #### [facility] [address] [place] [address], USAUrea nitrogen mass conc19 mg/dLNormal7-25The [facility] HospitalComment on above:Order Comment: No: Do not add to previous drawPerformed By: #### 45789 #### [facility] [address] [place] [address], USACBC COMPLETE BLOOD COUNTon 81-95-0355Dpqxjlvbspz distribution width Ratio (RBC)13.0 %Wfqinx62.5-15.0The [facility] HospitalComment on above:Order Comment: No: Do not add to previous draw Performed By: #### 82109 #### [facility] [address] [place] [address], USAHematocrit Volume Fraction (Bld)38.3 %Jzoiww84.0-45.0The [facility] HospitalComment on above:Order Comment: No: Do not add to previous drawPerformed By: #### 10446 #### [facility] [address] [place] [address], USAHemoglobin mass conc (Bld)12.6 g/kMEsldcq57.0-15.0The [facility] HospitalComment on above:Order Comment: No: Do not add to previous drawPerformed By: #### 10452 #### [facility] [address] [place] [address], [facility] Entitic mass (RBC)31.1 uaKkumvp11.0-33.0The [facility] HospitalComment on above:Order Comment: No: Do not add to previous drawPerformed By: #### 79283 #### [facility] [address] [place] [address], [facility] mass conc (RBC)32.9 g/pFZjgimd05.0-35.0The [facility] HospitalComment on above:Order Comment: No: Do not add to previous drawPerformed By: #### 70643 #### [facility] [address] [facility] [place] [address], [facility] Entitic volume (RBC)94.6 wAShxfvk69.0-98.0The [facility] HospitalComment on above:Order Comment: No: Do not add to previous drawPerformed By: #### 55136 #### [facility] [address] [facility] [place] [address], [facility] CLINICNucleated RBC/100 WBC Ratio (Bld)0 %Normal0-0The [facility] HospitalComment on above:Order Comment: No: Do not add to previous drawPerformed By: #### 55156 #### [facility] [address] [facility] [place] [address], [facility] CLINICPLAT EVA526 10*3/aLHgeyur687-838Ptu [facility] HospitalComment on above:Order Comment: No: Do not add to previous draw Performed By: #### 30471 #### [facility] [address] [facility]. [place] [id number], [facility] CLINICRBC #/vol (Bld)4.05 10*6/uLNormal3.80-5.00The [facility] HospitalComment on above:Order Comment: No: Do not add to previous drawPerformed By: #### 15586 #### [facility] [address] [place] [address], USAWBC #/vol (Bld)9.01 10*3/uLNormal4.00-10.60The [facility] HospitalComment on above:Order Comment: No: Do not add to previous drawPerformed By: #### 93021 #### [facility] [address] [place] [address], USAPROTHROMBIN TIMEon 20-41-4086EOS Coag RelTime (PPP)1.07 {INR}Normal0.91-1.16The [facility] HospitalComment on above: Order Comment: No: Do [...] OPTIMAL THERAPEUTIC RANGE. CHEST 1995;108:231S-246S.Performed By: #### [id number] #### [facility] [address] [place] [address], USAProthrombin time (PT) Coag time (PPP)13.9 yQynwrc39.3-14.8 The [facility] HospitalComment on above:Order Comment: No: Do not add to previous drawResult Comment: ALL RESULTS MUST BE INTERPRETED WITH RESPECT TO BLOOD DRAWING ARTIFACT OR DILUTION ERROR OF ANTICOAGULANT AT THE TIME OF SAMPLING.Performed By: #### [id number] #### [address] Vital Signs Date TimeVital SignValuePerforming FwjoqhqcbBbjtqrko21-14-3633 10:08-0400Body .6 cmKaitlin Macdonald PULP MAKER-MANAGER OCCUPATIONAL Work Phone: [facility]10-14-2025 10:08-0400Body mass index (BMI) [Ratio]20.36 kg/g6UbabrtxKaitlin Macdonald PULP MAKER-MANAGER OCCUPATIONAL Work Phone: [facility]10-14-2025 10:08-0400Body tmrzxu46.8 kgKaitlin Macdonald PULP MAKER-MANAGER OCCUPATIONAL Work Phone: [facility]10-14-2025 10:08-0400Diastolic blood cgwuarjt45 mm[Hg]Kaitlin Macdonald PULP MAKER-MANAGER OCCUPATIONAL Work Phone: [facility]10-14-2025 10:08-0400Heart rate 66 /minKaitlin Macdonald PULP MAKER-MANAGER OCCUPATIONAL Work Phone: [facility]10-14-2025 10:08-0400Systolic blood mm[Hg]Kaitlin Macdonald PULP MAKER-MANAGER OCCUPATIONAL Work Phone: [facility]07-17-2025 14:35-0400Body goydte944.48 cmKrzysztof Thompson MD Work Phone: [facility]07-17-2025 14:35-0400 Body mass index (BMI) [Ratio]21.7 kg/g9XpgzqpqKrzysztof Thompson MD Work Phone: [phone] [place], [place] 285[address]107-17-2025 14:35-0400 Body izzvle59.97 kgKrzysztof Thompson MD Work Phone: [phone] [place], [place] 2858106-12-2025 14:50-0400 Body oegwfg79.2 kgKrzysztof Thompson MD Work Phone: [phone] [place], [place] 2858104-17-2025 10:07-0400 Body .6 cmKaitlin Macdonald PULP MAKER-MANAGER OCCUPATIONAL Work Phone: [facility] Gliph Csahjy64-06-7936 10:07-0400Body mass index (BMI) [Ratio]21.7 kg/x5PeyhaybKaitlin Macdonald PULP MAKER-MANAGER OCCUPATIONAL Work Phone: [facility] Gliph Lqtuun10-90-5160 10:07-0400Body .34 kgKaitlin Macdonald PULP MAKER-MANAGER OCCUPATIONAL Work Phone: [facility] Gliph Adidix71-85-0878 10:07-0400Diastolic blood pedpkebv94 mm[Hg]Kaitlin Macdonald PULP MAKER-MANAGER OCCUPATIONAL Work Phone: [facility] Gliph Shypeh43-33-3482 10:07-0400Heart rate 89 /minKaitlin Macdonald APRN-MANAGER OCCUPATIONAL Work Phone: [facility] Gliph Nqesgc58-17-8777 10:07-0400Systolic blood dhlrveis580 mm[Hg]Kaitlin Macdonald APRN-MANAGER OCCUPATIONAL Work Phone: [facility] Gliph Hvypqp76-10-1448 14:21-0500Body mass index (BMI) [Ratio]23.52 kg/x9Qkjacsgzwgw Shama DO Work Phone: noCo[facility] HospitalNqsemfiuil97-98-1700 14:21-0500Body eltcem16.24 kgChristopher Sesay DO Work Phone: noCo[facility] HospitalYefgrkwloc09-12-7603 14:21-0500Diastolic blood kdeihmtj78 mm[Hg]Christsantoser Shama DO Work Phone: noCo[facility] HospitalPhoiaoncmr87-17-6041 14:21-0500Heart rate79 /min Christopher Shama DO Work Phone: noCo[facility] HospitalFuhgzeruyd80-30-5487 14:21-2569DeS0% (BldA) [Mass fraction]97 %Christopher Shama DO Work Phone: noCooper [facility] Memorial HospitalUnnagcrpnp31-73-7979 14:21-0500Systolic blood jkcegizr944 mm[Hg]Christopher Shama DO Work Phone: [facility] SpringsEhomrkkcve27-77-6762 11:45-0500Body aifohb511.[address]11-12-2024 11:45-0500Body mass index (BMI) [Ratio] 22.31 kg/m[address]11-12-2024 11:45-0500Body aktmkn12.[address]11-06-2024 11:25-0500Body iamgyv698.6 cmKaitlin Macdonald PULP MAKER-MANAGER OCCUPATIONAL Work Phone: [facility]11-06-2024 11:25-0500Body mass index (BMI) [Ratio]22.49 kg/z0WzjwtkyKaitlin Macdonald PULP MAKER-MANAGER OCCUPATIONAL Work Phone: [facility]11-06-2024 11:25-0500Body raakch82.42 kgKaitlin Macdonald PULP MAKER-MANAGER OCCUPATIONAL Work Phone: [facility]11-04-2024 13:28-0500Body mass index (BMI) [Ratio]23.52 kg/b5Kvqliglwcaa Shama DO Work Phone: [facility] SpringsKiccdnqlqh25-38-1683 13:28-0500Body .24 kgChristopher Shama DO Work Phone: [facility] SpringsUhiwguyeql73-69-7599 13:28-0500Diastolic blood mm[Hg]Raven Sesay DO Work Phone: [facility] SpringsXpdxxcrnjl48-19-9419 13:28-0500Heart rate87 /min Raven Sesay DO Work Phone: [facility] SpringsIznqkdlwyw68-27-0832 13:28-7843FrX1% (BldA) [Mass fraction]91 %Raven Sesay DO Work Phone: [facility] SpringsUxtauhasdw48-66-9979 13:28-0500Systolic blood xgmgusfh826 mm[Hg]Bonifacioopher Shama DO Work Phone: [facility] SpringsPanezouulu04-35-8857 11:35-0400Diastolic blood tmflwafe014 mm[Hg]MD Krzysztof Thompson Work Phone: 1419)[address] [place], [place] 4614307-17-2024 11:35-0400 Heart rate76 /minMD Krzysztof Hoanastasia Work Phone: [phone])[address] [place], [place] 4614307-17-2024 11:35-0400 Respiratory rate18 /minMD Krzysztof Hoy Work Phone: [phone])[address] [place], [place] 4614307-17-2024 11:35-0400 SaO2% (BldA) [Mass fraction]96 %MD Krzysztof Thompson Work Phone: [phone])[address] [place], [place] 4614307-17-2024 11:35-0400 Systolic blood fwlnybhz018 mm[Hg]MD Krzysztof Thompson Work Phone: [phone])[address] [place], [place] 4614307-17-2024 10:24-0400 Body amcnsk622.48 cmMD Krzysztof Hoy Work Phone: 1419)[address] [place], [place] 4614307-17-2024 10:24-0400 Body etraxz09.14 kgMD Krzysztof Hoy Work Phone: 1419)[address] [place], [place] 4614306-11-2024 09:07-0400 Body ulknqr630.48 cmMD Krzysztof Hoy Work Phone: [phone] [place], [place] 4614306-11-2024 09:07-0400 Body mass index (BMI) [Ratio]24.7 kg/m2MD Krzysztof Hoy Work Phone: [phone] [place], [place] 4614306-11-2024 09:07-0400 Body bgoqud39.23 kgMD Krzysztof Hoy Work Phone: 1419)[address] [place], [place] 4614306-11-2024 09:07-0400 Diastolic blood snadpnlv821 mm[Hg]MD Krzysztof Thompson Work Phone: 1(700)[address] [place], [place] 4614306-11-2024 09:07-0400 Heart rate60 /minMD Krzysztof Thompson Work Phone: 1(479)[address] [place], [place] 4614306-11-2024 09:07-0400 Systolic blood usslxxyg446 mm[Hg]MD Krzysztof Thompson Work Phone: [phone] [place], [place] 2858105-28-2024 13:37-0400 Diastolic blood paflgvih36 mm[Hg]MD Krzysztof Thompson Work Phone: 1([phone])[address]05-28-2024 13:37-0400 Heart rate78 /minMD Krzysztof Thompson Work Phone: [phone])[address]05-28-2024 13:37-0400 Respiratory rate16 /minMD Krzysztof Thompson Work Phone: 1(214)[address]05-28-2024 13:37-0400 SaO2% (BldA) [Mass fraction]97 %MD Krzysztof Thompson Work Phone: 1(120)[address]05-28-2024 13:37-0400 Systolic blood ydrjbvhd387 mm[Hg]MD Krzysztof Thompson Work Phone: [phone])[address]05-28-2024 11:35-0400 Body osgsql298.48 cmMD Krzysztof Thompson Work Phone: [phone])[address]05-28-2024 11:35-0400 Body wtdixpepkyd62.1 [degF]MD Krzysztof Thompson Work Phone: [phone])[address]05-28-2024 11:35-0400 Body wflzti45.14 kgMD Krzysztof Thompson Work Phone: 1(708)[address] [place] [address] Encounters Encounter DateEncounter TypeCare ProviderFacilityStart: 18-06-2753seulwbmizc Facility:[facility]tart: 07-15-2025 End: 26-91-5868Jfvkjecgj encounterErin Bashir [facility]Pro[facility] SurgeryStart: 06-23-2025 End: 72-65-7219Ylpnhj outpatient visit 15 minutesKaitlin Macdonald APRN-MANAGER OCCUPATIONAL Work Phone: [facility] General SurgeryComment on above: Incontinence of feces, unspecified fecal incontinence type (Primary Dx); Diverticular stricture ([facility])Start: 06-23-2025 End: 98-55-6414ztwrbfnoagYOIKMZKAnMed Health Medical Center [facility] Start: 05-13-2025 End: 96-66-1880uapxlsgidkGekisbe M Hoy MD Work Phone: [facility] Work Phone: Start: 05-13-2025 End: 93-13-7839Wetdakfk ReferredKrzysztof Marmolejo MD-LAB [facility] Start: 05-04-2025 End: 87-56-3856vqizoykznbGbwbtpa M Hoy MD Work Phone: [facility] Work Phone: Start: 05-04-2025 End: 31-99-8432Cdtdaqw encounter procedureRickie Johnson MD-[facility] Work Phone: Start: 04-27-2025 End: 64-13-4053uzcmtjyyvdHlfzqsc M Hoy MD Work Phone: [facility] Work Phone: Start: 04-27-2025 End: 67-67-7962Iguljln encounter procedureThsenait Alvares MD-[facility] Work Phone: Start: 04-02-2025 End: 71-26-6566eswmsqspiqAepbwue M Hoy MD Work Phone: [facility] Work Phone: Start: 04-02-2025 End: 68-18-8257Gucftnq encounter procedureRickie Johnson MD-[facility] Pain [facility] Work Phone: Start: 43-85-7446vkhzomggmeUsbyxcHugo Atwood MD [facility]: 03-26-2025 End: 58-14-8921sijysxpkmiNjkhrok M Hoy MD Work Phone: [facility] Work Phone: Start: 03-26-2025 End: 20-48-9536Aygdfum encounter procedureVasyl Chicas MD-[facility] Work Phone: start: 03-11-2025 End: 17-46-6939zgwflqzajhTelhppl M Hoy MD Work Phone: [facility] Work Phone: Start: 03-11-2025 End: 17-21-9939Wwuteye encounter procedureRickie Johnson MD-[facility] Pain [facility] Work Phone: Start: 02-26-2025 End: 78-41-3353Kijzvab encounter procedureVasyl Chicas MD-[facility] Work Phone: Start: 02-26-2025 End: 81-05-1895caijpvzzfuIjtvbei M HoyFava [facility]-dsm:[facility] Start: 02-19-2025 End: 00-61-0798Hlgiyoy encounter procedureVasyl Chicas MD-[facility] Work Phone: start: 12-25-2024 End: 29-55-2968Agtbwa outpatient visit 15 minutesKaitlin Macdonald PULP MAKER-MANAGER OCCUPATIONAL Work Phone: [facility] General SurgeryComment on above: Bright red blood per rectum (Primary Dx)Start: 12-25-2024 End: 31-74-8504Vsrggj OnlyNot In System Ref ProvProMedica Physicians General SurgeryStart: 08-11-2024 End: 03-36-7683xdvdzgsjlxFXQZHXNQBCN HASSETTNot AvailableStart: 08-11-2024 End: 72-90-2340Mjavic outpatient visit 25 minutesChristopher Shama DO Work Phone: [facility] STATE ROUTEComment on above:Left hand pain (Primary Dx); Primary osteoarthritis of hand, unspecified lateralityStart: 08-04-2024 End: 94-73-1301Aepkrfekr encounterAngelica Dawson CMAProMedica Physicians General SurgeryStart: 07-28-2024 End: 90-37-4070Xbopsxeboi and management of inpatientStafford Hospitaltart: 07-22-2024 End: 01-86-3539oancetzvfbLjb Pat Phone Call Provider [address] [place] [address] - Pre AdmitStart: 07-22-2024 End: 23-52-0991jdyzaehtnfXRDAXJF M [facility] Hospitaltart: 07-17-2024 End: 50-38-5030Jncyer flowsheetChristopher Shama DO Work Phone: [facility] ROUTEStart: 07-17-2024 End: 14-56-6973Drzemg flowsheetChristopher Shama DO Work Phone: [facility] STATE ROUTEStart: 07-17-2024 End: 73-53-3771Dvjobgi encounter procedureChristopher Shama DO Work Phone: [facility] STATE ROUTEComment on above:Cervical radiculopathy (Primary Dx); ParesthesiaStart: 07-17-2024 End: 73-15-3609mzbxpoirdnWZQTQTODHCY HASSETTNot AvailableStart: 07-16-2024 End: 98-87-0808Qzqncx outpatient new 30 minutesAudieharrisongreene county hospital Blane Macdonald PULP MAKER-MANAGER OCCUPATIONAL Work Phone: [facility] General SurgeryComment on above: Vomiting in adult (Primary Dx); History of gastric ulcer; Chronic GERD; Hiatal hernia; Dysphagia, unspecified typeStart: 07-16-2024 End: 54-15-3693wobyrgbrvcNBIEJVMMultiCare [facility] Start: 07-15-2024 End: 90-17-3876qnnawnitmkBLAGN A HUDDLESTONNot AvailableStart: 07-15-2024 End: 30-93-0380Sujclo outpatient visit 10 minutesCleve Sheth DO Work Phone: noms CI ORTHOPAEDICSComment on above:Chronic right hip pain (Primary Dx); Sacral insufficiency fracture with routine healing, subsequent encounter; Closed fracture of multiple pubic rami, right, initial encounter ([facility])Start: 07-14-2024 End: 92-07-5757Xphhwv flowsheetChristopher Shama DO Work Phone: [facility] ROUTEStart: 07-14-2024 End: 02-91-1961Pijqsr flowsheetChristopher Shama DO Work Phone: noMS [facility] R[facility]TEStart: 07-14-2024 End: 54-47-3557Hgaahy outpatient new 30 minutesChristopher Shama DO Work Phone: [facility] STATE ROUTEComment on above:Paresthesia (Primary Dx)Start: 07-14-2024 End: 79-59-5622ntmwnsairvBJNBAIRLNAO HASSETTNot AvailableStart: 06-17-2024 End: 83-65-1003Qxoejx flowsheetCleve Sheth DO Work Phone: [facility] CI ORTHOPAEDICSStart: 06-17-2024 End: 74-18-4442Mgkdng flowsheetCleve Sheth DO Work Phone: [facility] CI ORTHOPAEDICSStart: 06-17-2024 End: 14-69-4268Lnjlsw outpatient visit 25 minutesJabernard Sheth DO Work Phone: noMS CI ORTHOPAEDICSComment on above:Chronic right hip pain (Primary Dx); Sacral insufficiency fracture, initial encounter ([facility]); Closed fracture of multiple pubic rami, right, initial encounter ([facility])Start: 06-17-2024 End: 80-94-6735lazwmazwnpFREXS A HUDDLESTONNot AvailableStart: 06-13-2024 End: 75-44-7659Kandryihj department patient visitDOJEISONLAZARA Marmolejo VietKaiser Foundation Hospitaltart: 06-12-2024 End: 21-22-9358mdsvdhnusvKLNPH A HUDDLESTONNot AvailableStart: 06-05-2024 End: 66-04-8027Qvbclfwjp encounterSammaadela Case PTNOMS CI PTComment on above:PT [...] to fractures in bones. )Start: 06-05-2024 End: 38-16-8721Nsncar outpatient visit 15 minutesCleve Sheth DO Work Phone: NOVN ORTHOPAEDICSComment on above:Chronic right hip pain (Primary Dx)Start: 06-05-2024 End: 38-42-8331isotryguosYKUAH A HUDDLESTONNot AvailableStart: 2024 End: 00-67-4846ssganicfnxIOAFHAdan SHETHNot AvailableStart: 04-01-2024 End: 30-10-2396qwnrlgxipkUXPJW A HUDDLESTONNot AvailableStart: 86-85-4683Eoc- patient / Non-visitMD Krzysztof Hoy Work Phone: [facility] Work Phone: Start: 03-26-2024 End: 33-08-9987Zlhhpngkm to same day surgery centerMD Krzysztof Hoy Work Phone: [facility] Work Phone: Start: 03-26-2024 End: 93-62-4223qwvoevphzxKV Krzysztof M Hoy Work Phone: [facility] Work Phone: Start: 02-19-2024 End: 89-61-5904jneejmozhxKU Krzysztof M Hoy Work Phone: [facility] Work Phone: Start: 02-19-2024 End: 44-00-8211Nbnsmzs encounter procedureMD Krzysztof Hoy Work Phone: [facility] Work Phone: Start: 10-86-5835Iaq-patient / Non-visitMD Krzysztof Hoy Work Phone: [facility] Work Phone: Start: 02-05-2024 End: 58-40-4284Puphthlhg to same day surgery centerMD Krzysztof Thompson Work Phone: [facility] Work Phone: Start: 02-05-2024 End: 37-19-2095wmsmymkzaaLU Krzysztof Marmolejo Hoanastasia Work Phone: [facility] Work Phone: Start: 35-74-2972Uam-patient / Non-visitMD Krzysztof Thompson Work Phone: [facility] Work Phone: Start: 01-09-2024 End: 53-24-1718fnggskcqdyNOAS DUCKETTNot AvailableStart: 20-48-2447loprfynxzh JN GARCIA .Facility:C7Qsnus: 01-15-2023 End: 47-01-9321hmhnhfjjxpYLCKOT RODRIGUEZ .Facility:C3Dejmm: 01-10-2023 End: 08-25-5190btywonevstRW KRZYSZTOF HOY .Facility:L7Szrru: 12-15-2022 End: 32-65-9707tdlbddsdmvFPQKYE RODRIGUEZ .Facility:D6Crgkr: 12-15-2022 [facility] 12-05-2022 End: 11-63-3626loivzyqtnvZJ KRZYSZTOF HOY .Facility:S5Tyttc: 11-25-2022 End: 47-81-9531Mkbdbgbths and management of inpatientDR KRZYSZTOF HOY .Facility:H1 Start: 11-13-2022 End: 10-80-9863bkxbvthmqeRH KRZYSZTOF HOY .Facility:F5Voima: 11-09-2022 End: 66-52-1657vtlofjdovgOR KRZYSZTOF HOY .Facility:N6Lloth: 10-20-2022 End: 41-27-1385kurifxcjonQT KRZYSZTOF HOY .Facility:F9Zcaew: 10-19-2022 End: 25-12-0536eoxvlegtugRY KRZYSZTOF HOY .Facility:F4Azqwr: 10-18-2022 End: 50-12-3620xtyfwuowbnRL KRZYSZTOF HOY .Facility:R2Pmjco: 09-25-2022 End: 93-40-8287wxoqfvpuudQV KRZYSZTOF HOY .Facility:H7Edjhr: 07-25-2022 End: 71-32-6803gztwgxdjjgEG KRZYSZTOF HOY .Facility:Q5Mfhsx: 05-26-2022 End: 67-11-8662ttmxafywhqEA KRZYSZTOF HOY .Facility:P1Eudkv: 05-25-2022 End: 54-05-8610mipevjyxndUI KRZYSZTOF HOY .Facility:L6Tqyrq: 05-24-2022 End: 55-77-0450kklsehwphmBM KRZYSZTOF HOY .Facility:K2Ywxlf: 05-11-2022 End: 58-53-3671uadwaqyrlcCP KRZYSZTOF HOY .Facility:L6Ilaus: 02-14-2022 End: 71-54-6189zlxsltvxfeBD KRZYSZTOF HOY .Facility:D8Mjdku: 11-19-2018 End: 91-93-1631Gfkfssj encounter procedurePROVIDER UNKNOWNFacility:[facility]tart: 11-13-2018 End: 60-25-3197Gojjohs encounter procedureDEFAULT PHYSICIANFacility:[facility]tart: 10-31-2018 End: 34-41-8490Avoilem encounter procedureDEFAULT PHYSICIANFacility:[facility]tart: 09-23-2018 End: 17-91-1044Lmukkcr encounter procedureDEFAULT PHYSICIANFacility:[facility]tart: 09-05-2018 End: 20-67-7907Cjwafvx encounter procedureDEFAULT PHYSICIANFacility:[facility] Procedures DateProcedureProcedure DetailPerforming ClinicianStart: 06-44-9491Ahuce X-ray of right shoulderKrzysztof Thompson MD Work Phone: [phone]-art: 77-27-8465H-ray of thoracic spine, two views Krzysztof Thompson MD Work Phone: Start: 61-40-2910A-ray of lumbar spine, six views including bending viewsKrzysztof Thompson MD Work Phone: Start: 76-68-4760A-ray of cervical spineDoivis Thompson MD Work Phone: Start: 96-62-4582Hcvc energy X-ray absorptiometry Krzysztof Thompson MD Work Phone: Start: 07-17-2024 End: 72-60-4736Eohddg emg ea extremty w/paraspinl area completeChristopher Shama DO Work Phone: Start: 98-65-2873Vqsva hip unilateral with pelvis 2-3 viewsJames A Meryl DO Work Phone: Start: 41-84-1375GgmffcuykmoSgy In System Ref Prov Start: 56-78-0280Nuwgncytx colonoscopyMD Krzysztof Thompson Work Phone: Start: 39-83-0691MzhwgkovlaizgaumcpaffuhgqcUM Krzysztof Hoy Work Phone: Plan of Treatment DateCare ActivityDetailAuthorStart: 16-90-7966DIvN,Tdap and Td Vaccines (2 - Td or Tdap)DTaP,Tdap and Td Vaccines (2 - Td or Tdap)[facility] SystemStart: 96-82-9241Vemigha ScreeningTobacco ScreeningProMedica Health SystemStart: 68-98-7993Buaqeqp ScreeningTobacco ScreeningProMedica Health SystemStart: 34-35-4936Tzoppzv ScreeningTobacco ScreeningProMedica Health SystemStart: 07-30-2025 End: 74-28-8380Tebtwqo encounter nsvebkpbc42/20/2025 11:00 AM EST Office Visit [facility] [address] [place] [phone] Bon Covarrubias MD [address] [place] [address], [address] [place], [place] [phone] (Work) [facility] SurgeryStart: 67-12-2002Uhcwlpr ScreeningTobacco ScreeningProMedica Health SystemStart: 59-92-7009Fkageip ScreeningTobacco ScreeningSelect [facility] Start: 44-29-0822Czjqblm ScreeningTobacco ScreeningCarteret Health Caretart: 01-18-2460Jixxpchs identified in Urine by CultureUrine CultureWexner Medical Centertart: 85-36-3832Hcxds cultureWexner Medical Centertart: 83-05-2558CKQZP-19 Vaccine ( season)COVID-19 Vaccine ( season)[facility] Caretart: 66-80-6357Wkoddkfgb vaccination Influenza VaccineCarteret Health Caretart: 96-87-0228Ojpdbsc referral [facility] Work Phone: Start: 45-34-3268A-ray of thoracic spine, two viewsXR thoracic spine 2VWexner Medical Centertart: 21-01-5255GP Thoracic spine 2 ViewsWexner Medical Centertart: 40-63-4187Camrfpd referral [facility] Work Phone: Start: 08-11-2024 End: 50-18-9055Idpisqy encounter yfzzapbos95/02/2024 2:15 PM EST [facility] [address] [place] [phone] Raven Sesay [address] [place], [place] [id number] [facility] R[facility]TEStart: 07-28-2024 End: 89-04-9111Ueucvdjum to same day surgery nbwtmj6507/28/2024 9:15 AM EST - 07/28/2024 9:45 AM EST Surgery [facility] Surgery [address] [place] [address] Nidia White MD [address] [place] [phone] ESOPHAGOGASTRODUODENOSCOPY DIAGNOSTIC [80958 (CPT )][facility]icThe [facility] Center of AuroraComment on above:ESOPHAGOGASTRODUODENOSCOPY DIAGNOSTIC [20640 (CPT )]Start: 07-28-2024 End: 60-67-7022Rvesewzglzcwfdmrmayfqdmwpo transoral diagnostic ESOPHAGOGASTRODUODENOSCOPY DIAGNOSTIC vomiting, gastroesophageal reflux, dysphagia 07/28/2024 9:15 AM ESTFREMONT SURGERYStart: 62-43-3336Lquojjokdw hospital visit by lfeavylqb72/18/2024 9:15 AM EST Hospital Encounter [facility] Surgery [address] [place] [address] Nidia White MD [address] [place] [address] [facility] SystemStart: 07-22-2024 End: 28-06-6760xyofpkxgfd78/12/2024 3:10 PM EST Support Visit [facility] Admit [address] [place] [address] [facility] AdmitStart: 07-17-2024 End: 45-11-7653Jaqparh encounter procedureNOMS ASHFORD STATE ROUTEComment on above:ArrivedStart: 07-15-2024 End: 90-52-5567Unfnyxp encounter procedureNOMS CI ORTHOPAEDICSStart: 07-14-2024 End: 27-38-9712VPN 1 ExtremeityEMG 1 Extremeity Neurology Routine Paresthesia Expected: 07/14/2024, Expires: 07/14/2025[facility] Work Phone: comment on above:Expected: 07/14/2024, Expires: 07/14/2025Start: 07-14-2024 End: 74-69-3938Pgkbwlv encounter procedureNOMS LOLIS STATE ROUTEComment on above:Brachial plexopathy; Ulnar neuropathy of left upper extremityStart: 06-17-2024 End: 75-49-5622Afndqiu encounter jlfyjbatk48/08/2024 1:30 PM EDT Office Visit [facility] [address] [facility] [address] [place] [address] Cleve Sheth, [address] [facility] [address] [place] [address] Chronic right hip pain (Primary Dx); Sacral insufficiency fracture, initial encounter (CMS/HCC); Closed fracture of multiple pubic rami, right, initial encounter (CMS/HCC)[facility] Comment on above:Chronic right hip pain (Primary Dx); Sacral insufficiency fracture, initial encounter (CMS/HCC); Closed fracture of multiple pubic rami, right, initial encounter (CMS/HCC)Start: 06-16-2024 End: 61-01-9206Xxechyi encounter ftxzelxqm31/07/2024 12:30 PM EDT Office Visit [facility] [address] [place] [address] Raven Sesay DO [address] [place] [address] [facility] ROUTEStart: 05-11-2024 COVID-19 Vaccine ( season)COVID-19 Vaccine ( season) [facility] SystemStart: 76-19-9296Usnliewex vaccinationInfluenza Vaccine (#1)[facility] HealthcareStart: 66-39-0499NmfedqxivWexner Medical Centertart: 21-88-9799OyywbgxtdMemorial Hospital CenterStart: 80-31-9080CHD ( or age 60+ yrs) (1 - 1-dose 75+ series)RSV ( or age 60+ yrs) (1 - 1-dose 75+ series)[facility] SystemStart: 53-39-4686Skwpogggfoyyhz of varicella zoster vaccineZoster (Shingles) Vaccine (3 of 3)[facility] SystemStart: 26-40-0476Xsuw Risk ScreeningFall Risk ScreeningSelect Medical Specialty Hospital [facility] SystemStart: 65-44-1819UFjQ,Tdap and Td Vaccines (1 - Tdap)DTaP,Tdap and Td Vaccines (1 - Tdap)[facility]art: 98-60-5880Cvjpgyulrf ScreeningDepression ScreeningSelect Medical Specialty [facility] System End: 37-04-1793GeluwbptyccfhasyneoiwjxjdgBCL GI Routine Vomiting in adult Chronic GERD Dysphagia, unspecified type 1 Occurrences starting 07/16/2024 until 07/16/2025[facility] Work Phone: Comment on above:1 Occurrences starting 07/16/2024 until 07/16/2025Patient EducationMer[facility] Hospital Work Phone: [facility] Work Phone: XR Shoulder - right ViewsH. Lee M[facility] Immunizations Immunization DateImmunizationNotesCare RtolikyiQmorlvyw24-68-0052uiwgvqwxp virus vaccine, unspecified formulationChristopher Shama DO Work Phone: noCooper County Memorial HospitalUaksnirkiv38-77-2491Pjclfhnkv, Seasonal, Quadrivalent, AdjuvantedJames Meryl DO Work Phone: [facility] SpringsVqktwyvbhz35-13-7880cupqrdetx virus vaccine, unspecified formulationJames Meryl DO Work Phone: [facility] SpringsGinspemlfg72-67-3645vmsatkzbs, high dose seasonal, preservative-freeJames Meryl DO Work Phone: [facility] SpringsMsvmsqamol21-82-7205Iwxtxaosh, High-dose Seasonal, Quadrivalent, Preservative FreeJames Meryl DO Work Phone: [facility] SpringsYqhewyhfao71-16-0523Tlucxslro, High-dose Seasonal, Quadrivalent, Preservative FreeJames Meryl DO Work Phone: [facility] SpringsZmbxgweybi85-57-2875FFDM-ZtN-7, UnspecifiedJames Meryl DO Work Phone: [facility] SpringsGvswvqpfkt80-28-0955owvxmd vaccine, unspecified formulationKaitlin Macdonald PULP MAKER-MANAGER OCCUPATIONAL Work Phone: [facility] HospitalTmkxrq35-33-9933szcumjdgq, high dose seasonal, preservative-freeJames Meryl DO Work Phone: [facility] SpringsTbclfmbvvi54-43-7433hyvfmurkw, injectable, quadrivalent, preservative freeJames Meryl DO Work Phone: [facility] SpringsEjvzpxzgsd89-18-0752zfpwrxxiw, high dose seasonal, preservative-freeJames Meryl DO Work Phone: [phone] [place], [place] [address]Wusankjpik37-15-8214jwlgnlswm, high dose seasonal, preservative-freeJames Meryl DO Work Phone: [phone] [place], [place] [address]Msnkrthnmi83-14-4453tksocajfugqo conjugate vaccine, 13 valentJames Meryl DO Work Phone: [facility] SpringsNanlalegce02-65-7626xlfwtrtmh, seasonal, injectableJames Meryl DO Work Phone: [phone] [place], [place] [address]Xdqmhrbzou89-05-4583csdrzw vaccine, liveJames Savery DO Work Phone: [facility] SpringsVdclitveti45-63-0096cmbcfdwmefbh polysaccharide vaccine, 23 valentJaNexus Children[facility] DO Work Phone: [phone] [place], [place] [address]Vzdeneqsmv59-93-4669npfujovx influenza, intradermal, preservative freeIndiana Regional Medical Center DO Work Phone: [phone] [place] [address] Payers DatePayer CategoryPayerPolicy [id number]-pay2022MedicareANTHEM MEDICARE ADVANTAGE ANTHEM MEDICARE ADVANTAGE [id number] 2021-Present [address] [place] [id number] 2022Medicare (Managed Care)[employer]HEM MEDICARE ADVANTAGE Member Subscriber Plan / Payer (Effective 2021-Present) Name: Sheila Mac Relation to Subscriber: Self Name: Sheila Mac SubscriberID: [id number] Payer ID: Not on file Group ID: [id number] Type: Not on file Address: [address] [place] [id number] 2018Medicare HMOANTHEM MEDICARE Member Subscriber Plan / Payer (Effective 2017-Present) Name: Lopez Mac Relation to Subscriber: Self Name: Sheila Mac Payer ID: [id number] (NAIC) Group ID: [id number] Type: Not on file Address: [address] [place] [id number] [id number] 2..1.301414.3.579.2. [id number] 2..1.574065.3.57[id number] 2..1.939797.3.57[id number] 2..1.470649.3.57[id number] 2..1.414427.3.57[id number] 2..1.117333.3.579.[id number] 2.0.1.471517.3.579.2.31959-85-4216Aanmdyj2426541 2.0.1.278795.3.57[id number] 2.16840.1.369396.3.579.2.75520-33-3564Xdntpjk9383290 2.16.840.1.157087.3.579.2.73300-19-6873Exbavqu3108754 2.16840.1.046562.3.579.2.74300-88-2189Oxjhddg1889427 2.16840.1.103493.3.579.2.03386-39-3322Qjbfkmq9978501 2.840.1.316981.3.579.2.37638-38-4815Uhhgqeg7170678 2.840.1.243887.3.579.2.95970-40-5724Mhnvybo0296440 2.840.1.410001.3.579.[id number] 2.840.1.573225.3.57[id number] 2.840.1.029861.3.579.2.62606-43-5565Cfolrau7445247 2.840.1.184344.3.579.[id number] 2.840.1.955179.3.57[id number] 2.16840.1.776318.3.579.2.68250-22-6747Itwgphu6747950 2.16840.1.288592.3.57[id number] 2.16840.1.709652.3.579.2.42129-83-2846Bsfqtvg6094077 2.16.840.1.349701.3.579.2.68225-33-4240Lowabti5238771 2.840.1.330494.3.57[id number] 2.0.1.564429.3.579.2.026194-25-3930Veyatvt65229156 2.0.1.558950.3.579.2.006591-62-8846Czoblne03915523 2.0.1.901549.3.579.2.343223-40-2696Rzezhii2029677 2..1.334105.3.579.2.971025-77-3500Qhaefxc2699673 2..1.526220.3.579.2.365136-02-9144Brsmlte8041311 2.0.1.469536.3.579.2.610489-95-9738Sveflna4386439 2.0.1.080839.3.579.2.999708-06-6128Zmpwrtr0932663 2..1.794432.3.579.2.681128-05-3319Ljeqmff4814076 2.0.1.452682.3.579.[id number] 2.0.1.553281.3.579.2.972252-96-5718Vqkgowm9959553 2.840.1.842777.3.579.2.949400-46-2442Mxytoec8674557 2.840.1.071052.3.579.2.086159-61-8025Akqrrht1020838 2.16.840.1.786472.3.579.2.170019-54-0780Hsyzcik0592935 2.16.840.1.919464.3.57[id number] 2.16.840.1.485228.3.57[id number] 2.840.1.351193.3.57[id number] 2.16840.1.295[id number] 2.16840.1.3[id number] 2.840.1.385351.3.579.2.531 [id number] 2.16840.1.6[id number] 2.16840.1.753221.3.579.2.531 Social History DateTypeDetailFacilityStart: 09-28-2017 End: 56-39-1143Yfihvxw smoking status NHISNever smoked tobacco (finding) [facility]-6513Lex Assigned At BirthFemale [facility]: [birth year]-09[facility][birth year] End: 32-60-6180Ivjysyukl beverage intakeLifetime non-drinker (finding)[facility] HealthcareStart: 10-21-2020 End: 44-11-1432Inrngmy of Social functionNOMS HealthcareStart: 10-21-2020 End: 74-70-1122Rqceyej use panelST. MARK'S HOSPITAL HealthcareStart: 56-63-1481Smb assigned at birthNot on fileST. MARK'S HOSPITAL HealthcareStart: 63-81-0089Initatz use and exposure Smokeless tobacco non-userProUab [facility] SystemStart: 07-16-2024 End: 74-79-7540Qhgpruvah beverage intakeCurrent non-drinker of alcohol (finding) [facility] HospitalChildcareUnknowM[facility] Centertart: [facility] SexFemale (finding)[facility] Goals DatePatient GoalDesired Activity/State Clinical Notes 02-14-2022 to 07-15-2025 Note Date & AkloJeuvMgqswbbt14-65-6914 Miscellaneous Notes* Telephone Encounter - Jena Camejo CMA - 07/15/2025 10:33 AM EST Sheila called the office and she was confused on if she should keep her appointment with [facility] for her GI issues, or if she should try to find someone closer to her home. Her friend told her that their was a surgeon in [place] that is not a lot closer to her. I spoke on her speaker phone with her, her , & her son Cleve who will be driving her to the appointment. He does know how to use [email or web address]. While she does understand it's her decision [...] & let us know. documented in [facility] encounterHigh[facility] Hospital11-05-2025 Telephone encounter Note* Telephone Encounter - Jena Camejo CMA - 07/15/2025 10:33 AM EST Sheila called the office and she was confused on if she should keep her appointment with [facility] for her GI issues, or if she should try to find someone closer to her home. Her friend told her that their was a surgeon in [place] that is not a lot closer to her. I spoke on her speaker phone with her, her , & her son Cleve who will be driving her to the appointment. He does know how to use [employer]. While she does understand it's her decision [...] they have any further questions or concerns [facility]11-05-2025 Telephone encounter Note* Telephone Encounter - Jena Camejo CMA - 07/15/2025 10:33 AM EST I did try to call the patient to see if she wants to add her son as an emergency contact. I left her a message to call us & let us know. [facility]10-14-2025 History of Present illness Narrative* Kaitlin Macdonald, PULP MAKER-MANAGER OCCUPATIONAL - 06/23/2025 10:30 AM EDT Images from [...] was March [address] Sanchez at [facility]. Sigmoid diverticular stricture [...] Back pain COPD (chronic obstructive pulmonary disease) ([facility]) Diverticulitis Fecal incontinence GERD (gastroesophageal reflux disease) Hyperlipidemia Hypertension Pancreatitis Peptic ulceration Pneumonia PONV (postoperative nausea and vomiting) Prolonged emergence from general anesthesia Rectal bleeding Stroke ([facility]) x2, patient states light strokes Visual impairment Past Surgical History: Procedure Laterality Date APPENDECTOMY BACK SURGERY LOWER CHOLECYSTECTOMY 2016 patient states did not have this surgery COLONOSCOPY COLONOSCOPY N/A 05/26/2021 Performed by Freeman Michelle DO at [facility] EGD N/A 10/01/2017 Performed by Freeman Michelle DO at [facility] ESOPHAGOGASTRODUODENOSCOPY ESOPHAGOGASTRODUODENOSCOPY N/A 05/26/2021 Performed by Freeman Michelle DO at [facility] ESOPHAGOGASTRODUODENOSCOPY DIAGNOSTIC N/A 07/28/2024 Performed by [...] Interpersonal Safety: Unknown (11/01/2023) Received from [facility] Safety & Environment Fear of [...] patient/family/caregiver Referring and communicating with other health child care supervisor Incontinence of feces, unspecified fecal incontinence type [R15.9] [facility]YES [facility] [place] This note was created with the assistance of a speech recognition program. While intending to generate a timely document that accurately reflects the content of the visit, no guarantee can be provided that every grammatical or spelling mistake has been or will be identified or corrected. Thank you for your understanding. TAMIE Reyes 06/23/25 1034 documented in this encounterSelect [facility] [id number] Evaluation note* Diagnosis Onset Date Resolution Status Admit Date Left lumbosacral radiculopathy acuteJune 2024 2:18pmSpondylolisthesis, lumbar regionacuteJune 2024 2:18pmChronic painacuteJuly 2024 7:53amMyalgiaacuteJuly 2024 7:53am Thoracic back painacuteJuly 2024 7:53am [facility] Work Phone: 1(221) 186-530406-12-2025 Evaluation note* Diagnosis Onset Date Resolution Status Admit Date Left lumbosacral radiculopathy acuteJune 2024 2:18pmSpondylolisthesis, lumbar regionacuteJune 2024 2:18pmChronic painacuteJuly 2024 7:53amMyalgiaacuteJuly 2024 7:53am Thoracic back painacuteJuly 2024 7:53amLeft lumbosacral radiculopathyacute March 26, 2025 2:23pmSpondylolisthesis, lumbar regionacuteJuly 2024 2:23pm [facility] Work Phone: 1(644) 977-703606-12-2025 Evaluation note* Diagnosis Onset Date Resolution Status Admit Date Left lumbosacral radiculopathy acuteJune 2024 2:18pmSpondylolisthesis, lumbar regionacuteJune 2024 2:18pmChronic painacuteJuly 2024 7:53amMyalgiaacuteJuly 2024 7:53am Thoracic back painacuteJuly 2024 7:53amLeft lumbosacral radiculopathyacute March 26, 2025 2:23pmSpondylolisthesis, lumbar regionacuteJuly 2024 2:23pmChronic painacuteJuly 2024 8:55amMyalgiaacuteJuly 2024 8:55am Shoulder pain, rightacuteJuly 2024 8:55amThoracic back painacuteJuly 2024 8:55am [facility] Work Phone: 1(310) 592-672306-12-2025 Evaluation note* Diagnosis Onset Date Resolution Status [...] 2024 1:29pmPostmenopausalacuteAugust 2024 1:29pmStomach ulceracuteAugust 2024 1:29pm [facility] Work Phone: 1(498) 180-391806-12-2025 Evaluation note* Diagnosis Onset Date Resolution Status [...] rightacuteAugust 2024 8:05amThoracic back painacuteAugust 2024 8:05am [facility] Work Phone: 1(592) 166-114004-17-2025 History of Present illness Narrative* Kaitlin Macdonald, PULP MAKER-MANAGER OCCUPATIONAL - 12/25/2024 10:00 AM EDT Images from [...] was March [address] Sanchez at [facility]. Sigmoid diverticular stricture [...] Back pain COPD (chronic obstructive pulmonary disease) ([facility]) Diverticulitis GERD (gastroesophageal reflux disease) Hyperlipidemia Hypertension Pancreatitis Peptic ulceration Pneumonia PONV (postoperative nausea and vomiting) Prolonged emergence from general anesthesia Rectal bleeding Stroke ([facility]) x2, patient states light strokes Visual impairment Past Surgical History: Procedure Laterality Date APPENDECTOMY BACK SURGERY LOWER CHOLECYSTECTOMY 2017 patient states did not have this surgery COLONOSCOPY COLONOSCOPY N/A 05/26/2021 Performed by Freeman Michelle DO at [facility] EGD N/A 10/01/2017 Performed by Freeman Michelle DO at [facility] ESOPHAGOGASTRODUODENOSCOPY ESOPHAGOGASTRODUODENOSCOPY N/A 05/26/2021 Performed by Freeman Michelle DO at [facility] ESOPHAGOGASTRODUODENOSCOPY DIAGNOSTIC N/A 07/28/2024 Performed by Nidia White MD at [facility] HYSTERECTOMY KNEE ARTHROSCOPY Right patient denies [...] Interpersonal Safety: Unknown (11/01/2023) Received from [facility] Safety & Environment Fear of [...] patient/family/caregiver Referring and communicating with other health child care supervisor Bright red blood per rectum [K62.5] TAMIE REYES [facility] [place] This note was created with the assistance of a speech recognition program. While intending to generate a timely document that accurately reflects the content of the visit, no guarantee can be provided that every grammatical or spelling mistake has been or will be identified or corrected. Thank you for your understanding. TAMIE Reyes 12/31/24 1056 documented in this encounterHigh[facility]12[facility] History of Present illness Narrative* Raven Sesay [...] headaches. Past Medical History: Diagnosis Date Diabetes ([facility]) Diverticulitis Gastric ulcer GERD (gastroesophageal reflux disease) HTN (hypertension) ([facility]) Osteoporosis ([facility]) Pancreatitis Rheumatic fever Past Surgical History: Procedure Laterality Date APPENDECTOMY BACK SURGERY 1991 HEART CATH HM MAMMOGRAPHY 2012 HYSTERECTOMY Diabetes LUMBAR SPINE SURGERY NECK SURGERY OTHER SURGICAL HISTORY Sigmoid Diverticulosis OTHER SURGICAL HISTORY 2017 perforated ulcer [place] KNE SURG W/MENISCECTOMY MED/LAT W/SHVG Right [...] , wrist extensors , wrist flexor , concrete pourer strength 5/5. LUE Strength deltoid , biceps , triceps , wrist extensors , wrist flexor , concrete pourer strength 5/5. RLE Strength illopsoas, quadriceps, tibialis [...] reflex 0 . Metzger's sign negative. Coordination: Hxdrqn-io-vazq testing and rapid alternating movements are normal Gait: Patient ambulates with a walker Review and summary of old records: EMG of the left upper extremity on 07/17/2024: A remote C8 radiculopathy on the left which is [id number]. No evidence of plexopathy or mononeuropathy. Venous [...] plan, and return instructions documented in this encounterSaint Mary's Hospital of Blue [id number] Miscellaneous Notes* Telephone Encounter - Angelica Dawson [...] with no further questions. [facility] in [facility]High[facility] Telephone encounter Note* Telephone Encounter - [...] 8:17 PM EST To: Nidia White MD [facility]11-25-2024 Telephone encounter Note* Telephone Encounter - Angelica Dawson CMA - 08/04/2024 2:31 PM EST Spoke with patient regarding pathology results. Patient verbally understood with no further questions. [facility]11-12-2024 Miscellaneous Notes* Perioperative Nursing Note - Sakina Marvin RN - 07/22/2024 3:10 PM EST Preoperative Education Checklist- General Surgery date: 07/28/24 Surgery time: 914 Arrival time: 714 1. Bring a photo ID and your insurance card with you the day of surgery. You will check in at the main lobby of the [facility]- registration desk is straight ahead as soon as you walk in. Tell them you are here for surgery. 2. If you have a Living Will/Durable Power of Academic Support Assistant for Health Care that is not [...] after you have bathed. 5. NO nail barbadian/acrylic on at least one finger. If you are having a hand, wrist or foot surgery then all nail barbadian and artificial/acrylic nails must be removed from [...] please call the Preadmission Testing office at [phone], Mon.-Fri. 7 a.m.-3 p.m. Leave a voicemail [...] days prior to procedure documented in this encounterHighland [facility] Hospital11-[facility]24 Nurse Note* Perioperative Nursing Note - Sakina Marvin RN - 07/22/2024 3:10 PM EST Preoperative Education Checklist- General Surgery date: 07/28/24 Surgery time: 914 Arrival time: 714 1. Bring a photo ID and your insurance card with you the day of surgery. You will check in at the main lobby of the [facility]- registration desk is straight ahead as soon as you walk in. Tell them you are here for surgery. 2. If you have a Living Will/Durable Power of Academic Support Assistant for Health Care that is not [...] after you have bathed. 5. NO nail barbadian/acrylic on at least one finger. If you are having a hand, wrist or foot surgery then all nail barbadian and artificial/acrylic nails must be removed from [...] please call the Preadmission Testing office at [phone], Mon.-Fri. 7 a.m.-3 p.m. Leave a voicemail [...] Stop taking 0 days prior to procedure [facility]11-07-2024 History of Present illness Narrative* KALI Wolfe - 07/17/2024 9:00 AM EST Images from the original note were not included. Reason for Appointment: EMG Patient: Sheila Mac : 1950 EMG Computer: [employer] Referring Physician: Dr. Raven Sesay EMG: CINTHYA qa intern: Jarrett Palmer RT(R) Office Location: [place] Reason for EMG: c/o numbness/tingling in left hand especially in 3rd 4th 5th digits, weakness in left hand. Hx of surgery to neck. No hx of DM. Taking ASA & Plavix. Comments: Procedure was explained to the patient & who expressed understanding. Patientappeared to have tolerated the test well despite some discomfort due to the nature of the test. documented in this encounterSaint Mary's Hospital of Blue [id number] History of Present illness Narrative* Kaitlin Macdonald, [...] Diagnosis Date COPD (chronic obstructive pulmonary disease) ([facility]) Diverticulitis GERD (gastroesophageal reflux disease) Hyperlipidemia Hypertension Pancreatitis Peptic ulceration PONV (postoperative nausea and vomiting) Stroke ([facility]) x2, patient states light strokes Visual impairment Past Surgical History: Procedure Laterality Date APPENDECTOMY BACK SURGERY LOWER CHOLECYSTECTOMY 2017 COLONOSCOPY COLONOSCOPY N/A 05/26/2021 Performed by Freeman Michelle DO at [facility] EGD N/A 10/01/2017 Performed by Freeman Michelle DO at [facility] ESOPHAGOGASTRODUODENOSCOPY ESOPHAGOGASTRODUODENOSCOPY N/A 05/26/2021 Performed by Freeman Michelle DO at [facility] HYSTERECTOMY KNEE ARTHROSCOPY Right patient denies [...] Interpersonal Safety: Unknown (11/01/2023) Received from [facility] Safety & Environment Fear of [...] patient/family/caregiver Referring and communicating with other health child care supervisor Vomiting in adult [R11.10] KAITLIN MACDONALD, PULP MAKER-MANAGER OCCUPATIONAL [facility] [place] This note was created with the assistance of a speech recognition program. While intending to generate a timely document that accurately reflects the content of the visit, no guarantee can be provided that every grammatical or spelling mistake has been or will be identified or corrected. Thank you for your understanding. TAMIE Reyes 07/16/24 1232 documented in this encounterHighland District Hospital11-05-2024 History of Present illness Narrative* Cleve Sheth, DO - 07/15/2024 10:30 AM EST Images from the original note were not included. HISTORY OF PRESENT ILLNESS: Sheila Mac is an 74 y.o. @ female. Chief complaint RT hip pain RT hip: using calcitonin NS Pt went to [facility] ER 06/13, X-rays done pelvis and lumbar. RX for lidoderm patches given, she states she could hardly walk. RT hip pain x 3-4 months, worsened on 05/31 after going to the grocery store. Denies injury. She hadinjections at [facility] in April without relief. She saw Dr Thompson 06/02 and 06/04, given IM injections-no relief. She is walking better, using rollator. Mild ache in the thigh. Using pain spray daily Saw Dr Thompson 06/02 and 06/04. XR done at [facility] 06/02/24. Using hot icy hot. Given IM torodol, Tramadol RX and PT ordered, XR [place] [facility] 06/05/24, MRI [facility] 06/12/24, [facility] ER 06/13/24, lidoderm patches, calcitonin [...] HISTORY: Past Medical History: Diagnosis Date Diabetes ([facility]) Diverticulitis Gastric ulcer GERD (gastroesophageal reflux disease) HTN (hypertension) ([facility]) Osteoporosis ([facility]) Pancreatitis Rheumatic fever ALLERGIES: Allergies Allergen Reactions Iodinated Contrast Media Morphine Penicillins Nsaids Rash VITALS: Visit Vitals Smoking Status Never PHYSICAL EXAM: Ortho Exam RIGHT HIP Using Rollator Strength 4/5 ROM 30 IR and 30 ER IMAGING: June 05, 2024 x-rays from the [place] office AP pelvis and lateral of the right hip demonstrate an intact hip joint space. There are no fractures detected. The bone has an osteopenic appearance.The joint spaces are symmetric. There is no obvious effusion or soft tissue swelling. Impression: No acute findings on x-rays of the right hip Hemal Sheth D.O. MRI of the right hip from the [facility] center. There is a sacral insufficiency [...] of multiple pubic rami, right, initial encounter ([facility]) S32.591A calcitonin, salmon, (Miacalcin) 200 UNIT/ACT nasal [...] Dr. Sheth/ashley Sheth D.O. documented in this encounterSaint Mary's Hospital of Blue [id number] History of Present illness Narrative* Raven Sesay [...] headaches. Past Medical History: Diagnosis Date Diabetes ([facility]) Diverticulitis Gastric ulcer GERD (gastroesophageal reflux disease) HTN (hypertension) ([facility]) Osteoporosis ([facility]) Pancreatitis Rheumatic fever Past Surgical History: Procedure Laterality Date APPENDECTOMY BACK SURGERY 1991 HEART CATH MAMMOGRAPHY 2013 HYSTERECTOMY Diabetes LUMBAR SPINE SURGERY NECK SURGERY OTHER SURGICAL HISTORY Sigmoid Diverticulosis OTHER SURGICAL HISTORY 2017 perforated ulcer [place] KNE SURG W/MENISCECTOMY MED/LAT W/SHVG Right [...] , wrist extensors , wrist flexor , concrete pourer strength 5/5. LUE Strength deltoid , biceps , triceps , wrist extensors , wrist flexor , concrete pourer strength 5/5. RLE Strength illopsoas, quadriceps, tibialis [...] reflex 0 . Metzger's sign negative. Coordination: Rvmqii-vo-oxjp testing and rapid alternating movements are normal [...] plan, and return instructions documented in this encounterSaint Mary's Hospital of Blue [id number] History of Present illness Narrative* Cleve Sheth DO - 06/17/2024 1:30 PM EDT Images from the original note were not included. HISTORY OF PRESENT ILLNESS: Sheila Mac is an 74 y.o. @ female. Chief complaint RT hip pain RT hip: here for MRI results [facility] 06/12/24 Pt went to [facility] ER 06/13, X-rays done pelvis and lumbar. RX for lidoderm patches given, she states she could hardly walk. RT hip pain x 2-3 months, worsened on 05/31 after going to the grocery store. Denies injury. She hadinjections at [facility] in April without relief. She saw [...] Thompson 06/02 and 06/04. XR done at [facility] 06/02/24. Using hot icy hot. Given IM torodol, Tramadol RX and PT ordered, XR [place] [facility] 06/05/24, MRI [facility] 06/12/24, [facility] ER 06/13/24, lidoderm patches I [...] HISTORY: Past Medical History: Diagnosis Date Diabetes ([facility]) Diverticulitis Gastric ulcer GERD (gastroesophageal reflux disease) HTN (hypertension) ([facility]) Osteoporosis ([facility]) Pancreatitis Rheumatic fever ALLERGIES: Allergies Allergen Reactions [...] IMAGING: June 05, 2024 x-rays from the [place] office AP pelvis and lateral of the right hip demonstrate an intact hip joint space. There are no fractures detected. The bone has an osteopenic appearance.The joint spaces are symmetric. There is no obvious effusion or soft tissue swelling. Impression: No acute findings on x-rays of the right hip Hemal Washington I reviewed an MRI of the right hip from the [place] [facility]. There is a sacral insufficiencyfracture and suspected insufficiency fractures of the right superior and inferior pubic rami. The right hip joint is intact and there are no fractures in the hip. There is loss of articular cartilage in the right hip consistent with arthritis. ASSESSMENT: ICD-10-CM 1. Chronic right hip pain M25.551 G89.29 2. Sacral insufficiency fracture, initial encounter ([facility]) M84.48XA 3. Closed fracture of multiple pubic rami, right, initial encounter ([facility]) S32.591A calcitonin, salmon, (Miacalcin) 200 UNIT/ACT nasal [...] Dr. Sheth/ashley Sheth D.O. documented in this encounterSaint Mary's Hospital of Blue [id number] History of Present illness Narrative* Cleve Sheth DO - 06/05/2024 1:30 PM EDT Images from the original note were not included. HISTORY OF PRESENT ILLNESS: Sheila Mac is an 74 y.o. @ female. Chief complaint RT hip pain New problem: RT hip pain. Dr Thompson referral. XR [facility] 06/03/24 RT hip pain x 2-3 months, worsened on 05/31 after going to the grocery store. Denies injury. She hadinjections at [facility] in April without relief. She saw Dr Thompson 06/02 and 06/04, given IM injections-no relief. She is having difficulty walking, using a walker. Pain with WB. Pain in the buttock, hamstringand inner thigh. Pain can be aching and sharp. Difficulty with sit to stand. Pain 1/10 at rest, goes to 10+/10 with WB. Has not started tramadol, will picker/puller today. Taking TYL, using icy hot. Saw Dr Thompson 06/02 and 06/04. XR done at [facility] 06/02/24. Using hot icy hot. Given [...] HISTORY: Past Medical History: Diagnosis Date Diabetes ([facility]) Diverticulitis Gastric ulcer GERD (gastroesophageal reflux disease) HTN (hypertension) ([facility]) Osteoporosis ([facility]) Pancreatitis Rheumatic fever ALLERGIES: Allergies Allergen Reactions [...] the right hip from the [facility] dated May of 2024 slightnarrowing of [...] Dr. Sheth/ashley Sheth D.O. documented in this encounterSaint Mary's Hospital of Blue [id number] Telephone encounter Note* Telephone Encounter - Bella Saavedra - 06/05/2024 11:40 AM EDT $40.00 copay / Prior auth needed. [facility] Blue [id number] Miscellaneous Notes* Telephone Encounter - Bella Saavedra - 06/05/2024 11:40 AM EDT $40.00 copay / Prior auth needed. documented in this encounterSaint Mary's Hospital of Blue [id number] Procedure [facility]05-28-2024 Procedure [facility]04-07-2023 NoteCardiology Follow Up Progress Note Chief [...] will be (more content not included)...[facility] 12-15-2022 NoteReview of Systems Cardiovascular: Positive for leg swelling. Respiratory: Positive for shortness of breath. Skin: Positive for color change. Neurological: Positive for headaches. All other systems reviewed and are negative.[facility] 07-25-2022 NotePROCEDURE: MRA NECK WO CON [...] DANIEL PINEDA Date: 2022-07-25 13:25[facility] [id number] NotePROCEDURE: XR FOOT LT MIN 3 VIEWS HISTORY: Pain in left foot ; acute plantar pain COMPARISON: None. FINDINGS: BONES:No fracture, acute abnormality, or significant arthropathy. SOFT TISSUES:No visible soft tissue swelling. EFFUSION:None visible. OTHER: Negative. IMPRESSION: 1. No acute abnormality, significant degenerative changes, or findings to account for patient's symptoms. Electronically authenticated by: DANIEL PINEDA Date: 2022-05-11 12:51[facility]06-07-2022 NotePROCEDURE: XR KNEE LT 4V or > COMPARISON: None. HISTORY: Osteoarthritis FINDINGS: BONES:No fracture, acute abnormality, or significant arthropathy. SOFT TISSUES:Negative. No visible soft tissue swelling. EFFUSION:Moderate suprapatellar joint effusion OTHER: Negative. IMPRESSION: Moderate joint effusion Electronically authenticated by: GODWIN BECK Date: 2022-02-14 17:30[facility] HospitalEvaluation noteNo assessment information availableMercer County Community Hospital Work Phone: Evaluation note* Diagnosis Onset Date Resolution Status Duodenal diverticulum acuteHiatal herniaacuteIBS (irritable bowel syndrome)acuteScreening for colon cancerTriHealth Work Phone: Evaluation note* Diagnosis Chronic right hip pain- Primary Sacral insufficiency fracture, initial encounter ([facility]) Closed fracture of multiple pubic rami, right, initial encounter ([facility]) documented in this encounter [facility] HealthcareEvaluation note* Diagnosis Paresthesia- Primary Disturbance of skin sensation documented in this encounter [facility] HealthcareEvaluation note* Diagnosis Chronic right hip pain- Primary Sacral insufficiency fracture with routine healing, subsequent encounter Closed fracture of multiple pubic rami, right, initial encounter ([facility]) documented in this encounter [facility] HealthcareEvaluation note* Diagnosis Cervical radiculopathy- Primary Brachial neuritis or radiculitis nos Paresthesia Disturbance of skin sensation documented in this encounter [facility] HealthcareEvaluation note* Diagnosis Left hand pain- Primary Pain in soft tissues of limb Primary osteoarthritis of hand, unspecified laterality documented in this encounter [facility] HealthcareEvaluation note* Diagnosis Chronic right hip pain- Primary documented in this encounter [facility] HealthcareEvaluation note* Diagnosis Vomiting in adult- Primary History of gastric ulcer Chronic GERD Hiatal hernia Diaphragmatic hernia without mention of obstruction or gangrene Dysphagia, unspecified type [facility] Diagnosis Bright red blood per rectum- Primary Hemorrhage of rectum and anus [facility]* Diagnosis Incontinence of feces, unspecified fecal incontinence type- Primary Diverticular stricture ([facility]) documented [facility] [facility] SystemHistory and physical note Author Ben Sanchez [facility] February 05, 2024 1:08pmNote Date/TimeMay 2023 1:08pm[place] [address] Gastroenterology H&P Signed Patient: Sheila Mac MR#: [id number] : 1950 Acct:[id number] Age/Sex: 73 / F Adm Date: 4 Loc: Room: Type: [facility] Attending Dr: Ben Sanchez MD Copies [...] signed by Ben Sanchez MD> 02/05/24 1308 [facility] Work Phone: History and physical note Author Ben Sanchez [facility] March 26, 2024 10:37amNote Date/TimeJuly 2023 10:37[place] [address] Gastroenterology H&P Signed Patient: Sheila Mac MR#: [id number] : 1950 Acct:[id number] Age/Sex: 73 / F Adm Date: 4 Loc: Room: Type: [facility] Attending Dr: Ben Sanchez MD Copies [...] <Electronically signed by Ben Sanchez MD> 03/26/[address] [place] [address] Work Phone: Hospital Discharge instructionsAmbulatory Orders* Referral to Orthopedic Surgery Location: None [facility] Work Phone: InstructionsNot on filedocumented in this encounter [facility]ructionsNot on filedocumented in this encounter [facility] SystemInstructionsNot on filedocumented in this encounter [facility] SystemInstructionsNot on filedocumented in this encounter [facility] SystemInstructions* Attachments The following attachments cannot be sent through Care Everywhere. * Hemorrhoids (Bulgarian) documented in this encounterProMedica Health SystemInstructionsNot on file documented in this encounterProMedica Health SystemInstructionsNot on file documented in this encounterProMedica Health SystemReason for referral (narrative)No reason for referral information [facility]Mer[facility] Work Phone: Refjhg for visit Narrative* Consultation (Routine) - ClosedSpecialtyDiagnoses / ProceduresReferred By ContactReferred To Contact Neurology Diagnoses Brachial plexopathy Ulnar neuropathy of left upper extremity Procedures [place] OFFICE/[facility]PATIENT [facility] 60 MINUTES Cleve Sheth DO [address] [address] Phone: tel: fax:[phone] Daniel Patiño MD [address] [place] [address] Phone: tel: fax: Referral IDSGiuliano DateExpiration DateVisits RequestedVisits [id number] Consult and Treat / [facility] Summary [...] 022024 9:53am CONSULT DR NEHAL ORTIZ [facility] 03/02 ust 2024 [...] 022024 9:53am CONSULT DR NEHAL ORTIZ [facility] 03/02 ust 2024 [...] 022024 9:53am CONSULT DR NEHAL ORTIZ [facility] 03/02 ust 2024 1:29pm 1 mo fu trigger points/ consider shoulde r inj May 04, 2025 8:05am Unknown May 13, 2025 10:46am Additional Source Comments INFORMATION SOURCE (unrecogn ized section and content) DATE CREATED AUTHOR 11/24/2018 [facility] DATE CREATED AUTHOR AUTHOR'S ORGANIZ ATION 12/19/2022 [facility] DATE CREATED AUTHOR AUTHOR'S ORGANIZ ATION 01/18/2023 [facility] DATE CREATED AUTHOR AUTHOR'S ORGANIZ ATION 08/04/2024 [facility] DATE CREATED AUTHOR AUTHOR'S ORGANIZ ATION 08/12/2024 [facility] DATE CREATED AUTHOR AUTHOR'S ORGANIZ ATION 04/02/2025 [facility] DATE CREATED AUTHOR AUTHOR'S ORGANIZ ATION 05/15/2025 [facility] DATE CREATED AUTHOR AUTHOR'S ORGANIZ ATION 06/24/2025 [facility] DATE CREATED AUTHOR AUTHOR'S ORGANIZ ATION 07/22/2025 [facility] Care Teams (unrecognized sec tion [...] Team MemberRelationshipSpecialtyStart DateEnd Date Krzysztof Thompson MD [address] [place] [address] PCP - [facility] Medicine01/09/24Team MemberRelationshipSpecialtyStart DateEnd Date Krzysztof Thompson MD [address] [place] [address] [facility] - [facility]01/09/24Team MemberRelationshipSpecialtyStart DateEnd Date Krzysztof Thompson MD [address] [place] [facility] [place] [address] PCP - GeneralFamily Medicine01/09/24Team MemberRelationshipSpecialtyStart DateEnd Date Krzysztof Thompson MD [address] [place] [facility] [place] [address] PCP - GeneralFamily Medicine01/09/24Team MemberRelationshipSpecialtyStart DateEnd Date Krzysztof Thompson MD [address] [place] [facility] [place] [address] PCP - GeneralFamily Medicine01/09/24 Raven Sesay DO [address] [place] [address] Referring YthywhdhdZxyvvkdpk40/4/24Team MemberRelationshipSpecialtyStart DateEnd Date Krzysztof Thompson MD [address] [place] [facility] [place] [address] PCP - GeneralFamily Medicine01/09/24 Raven Sesay DO [address] [place] [address] Referring RjydrtafxFwjiputqq99/4/24Team MemberRelationshipSpecialtyStart DateEnd Date Krzysztof Thompson MD [address] [facility] [place] [address] PCP - GeneralFamily Medicine01/09/24 Raven Sesay DO [address] [address] Referring QkvcfthmsMowvhsqdj82/4/24Team MemberRelationshipSpecialtyStart DateEnd Date Krzysztof Thompson MD [address] [facility] [place] [address] PCP - GeneralFamily Medicine01/09/24 Raven Sesay DO [address] [address] Referring DfodawshtDpcdrldjc95/4/24Team MemberRelationshipSpecialtyStart DateEnd Date Krzysztof Thompson MD [address] [facility] [place] [address] PCP - GeneralFawaly Medicine01/09/24 Raven Sesay DO [address] [place] [address] Referring CsdmgnviyAbreyuctm47/4/24Team MemberRelationshipSpecialtyStart DateEnd Date Krzysztof Thompson MD PCP - General7Team MemberRelationshipSpecialtyStart DateEnd Date Krzysztof Thompson MD PCP - General7/02/24Team MemberRelationshipSpecialtyStart DateEnd Date Krzysztof Thompson MD PCP - General7/02/24Team MemberRelationshipSpecialtyStart DateEnd Date Krzysztof Thompson MD [facility]03/15/17Team MemberRelationshipSpecialtyStart DateEnd Krzysztof Flores MD [facility]03/15/17 Team Status: Inactive Member Role Status [...] 13, 2025Team MemberRelationshipSpecialtyStart DateEnd Krzysztof Flores MD [place] [address]Team MemberRelationshipSpecialtyStart DateEnd Krzysztof Flores MD PCP - [...] colon with Dr. Sanchez at [facility] in 4Reason CommentsEncopresisBowel Incontinence, last seen [...] BE BASED ON THE PRIMARY CLINICAL RECORDS. [employer] [facility]. provides no warranty or guarantee of the accuracy or completeness of information in this document.
--- OUTSIDE RECORDS SUMMARY | 2025-07-29 10:06 | XMS_ITS | CCD ---
Author Organization Unknown Care Team Providers Care Paper Rewinder Operator Name Role Phone Unavailable Primary Care Provider Unavailabl e Unavailable Chronic Care Management Unavaila ble Summary Purpose DataExchange Insurance Providers Payer name Policy type / Coverage type Covered alliance party ID Effective Begin Date Effective End Date [facility] [id number] Unknown Unknown Family History Family History data not found Medication Administered No Medication Administered data Reason For Visit No Reason For Visit data Medical Equipment No Medical Equipment data Advance Directives No Advance Directive data
--- OUTSIDE RECORDS SUMMARY | 2025-07-29 10:06 | XMS_ITS | Clinical Summary ---
Author Organization [facility] Address [address] [facility], [address] [place] [address] Care Team Providers Care Body Wirer Name Role Phone Alvaro Harp MD Primary Care Provider [phone] Allergies Active AllergyReactionsCriticalityNoted AxliTjsduwuxZwcmflp04/06/2018Morphine 07/16/20185897Ajtyjjvxfkj20/06/2018 Medications MedicationSigDispense QuantityRefillsLast FilledStart DateEnd DateStatus gabapentin [...] InformationValueDate RecordedSex Assigned at BirthNot on fileLegal EznLqdtbw10/10/2013 8:58 PM EST Gender IdentityNot on fileSexual OrientationNot on file Last Filed Vital Signs Vital SignReadingTime TakenCommentsBlood Pressure--Pulse--Nbposemlage40.4 ??C (97.6 ??F)10/25/2018 2:46 PM ESTRespiratory Rate--Oxygen Saturation--Inhaled Oxygen Concentration--Xdghzw19.6 kg (160 lb)10/25/2018 2:46 PM TPELhbqfu011 cm (5' 3 )10/25/2018 2:46 PM ESTBody Mass Index28.34010/25/2018 2:46 PM EST Plan of Treatment Not on file Insurance Care Teams Team MemberRelationshipSpecialtyStart Date Alvaro Harp MD [address] [place] [address] PCP - GeneralFamily Ebvabfrv45/17/18
--- OUTSIDE RECORDS SUMMARY | 2025-07-29 10:07 | XMS_ITS | CCD ---
Author Organization Unknown Care Team Providers Care Parachute Marker Name Role Phone Unavailable Primary Care Provider Unavailabl e Unavailable Chronic Care Management Unavaila ble Summary Purpose DataExchange Insurance Providers Payer name Policy type / Coverage type Covered green party ID Effective Begin Date Effective End Date [facility] [id number] Unknown Unknown Family History Family History data not found Medication Administered No Medication Administered data Reason For Visit No Reason For Visit data Medical Equipment No Medical Equipment data Advance Directives No Advance Directive data
--- OUTSIDE RECORDS SUMMARY | 2025-07-29 10:07 | XMS_ITS | CCD ---
Author Organization Unknown Care Team Providers Care Shop Hand Name Role Phone Unavailable Primary Care Provider Unavailabl e Unavailable Chronic Care Management Unavaila ble Summary Purpose DataExchange Insurance Providers Payer name Policy type / Coverage type Covered republican ID Effective Begin Date Effective End Date [facility] [id number] Unknown Unknown Family History Family History data not found Medication Administered No Medication Administered data Reason For Visit No Reason For Visit data Medical Equipment No Medical Equipment data Advance Directives No Advance Directive data
--- OUTSIDE RECORDS SUMMARY | 2025-07-29 10:08 | XMS_ITS | Clinical Summary ---
Author Organization [facility] Address [address] [place] [address] Care Team Providers Care Echo Vascular Technologist Name Role Phone Alvaro Harp MD Primary Care Provider [phone] Allergies Active AllergyReactionsCriticalityNoted PpywNhxuapzrZtpOnsfvcdt52/14/2017 IV DYE Wttvztv66/06/2018Iodinated Contrast Media12/07/20224762Wfpbuvmw00/30/2023Morpholine OnscsyzinKbcvt50/14/2017Nsaids (Non-Steroidal Anti-Inflammatory Drug)12/07/2022 Rcqigpjdytx93/30/2023 Medications MedicationSigDispense QuantityRefillsLast FilledStart DateEnd DateStatus sucralfate [...] 1 kit 12/15/2022ctive Active Problems ProblemNoted DateDiagnosed LcgxRwwhhjlzimbthl34/03/8185Qzhuimalljlv15/03/2019 Chronic lambkjyevyit72/28/2018 Immunizations ImmunizationAdministration DatesNext DueCovid (Pfizer) Bivalent Booster =>12 YRS 07/13/2022Influenza, High Dose Seasonal, Preservative Free06/12/2022,06/18/2018, 06/14/2016,06/03/2015Influenza, High-dose Seasonal, Quadrivalent, Preservative Free05/30/2022,06/15/2021Influenza, injectable, quadrivalent, preservative free 05/22/2017Pfizer SARS-CoV-2 Eidjxupbtxa12/03/2022,06/29/2021,11/17/2020, 10/12/2020Unspecified Sars-Cov-2 Nngttcwdoon86/03/2021 Social History Tobacco UseTypesPacks/DayYears UsedDateSmoking Tobacco: NeverSmokeless Tobacco: Never Tobacco Cessation:Counseling Given: Not Answered [place] Safety & EnvironmentAnswerDate RecordedFear of Current or Ex-PartnerNot on file11/01/2023Emotionally AbusedNot on file11/01/2023hysically AbusedNot on file11/01/2023Sexually AbusedNot on file11/01/2023hysically or Sexually Abused Not on file11/01/2023CommentsUnknownSex and Gender InformationValueDate RecordedSex Assigned at MysmzMcgmjw21/30/2025 3:49 PM EDTLegal SexFemale 03/08/2022 10:03 PM EDTGender AlhsqbmvQbafsy75/30/2025 3:49 PM EDTSexual OrientationHeterosexual or Jbwiprxn70/30/2025 3:49 PM EDT Last Filed Vital Signs Vital SignReadingTime TakenCommentsBlood Vefocuza483/9601/29/2023 1:03 PM EDT Prynt761201/29/2023 1:03 PM EDTTemperature--Respiratory Rate--Oxygen Lfgllgagst68% 01/29/2023 1:03 PM EDTInhaled Oxygen Concentration--Iwboxy26.1 kg (145 lb 12.8 oz)01/29/2023 1:03 PM EOAFadarc124.6 cm (5' 4 )01/29/2023 1:03 PM EDTBody Mass Index25.03001/29/2023 1:03 PM EDT Plan of Treatment Health MaintenanceDue DateLast DoneCommentsDiabetes: Hemoglobin A1C1950 Medicare Annual Wellness (AWV)1950Diabetes: Retinopathy Screening 1958Depression Mujknjgpx76/30/1960Diabetes: Urine Protein Screening 1967Adult Bxjpebx0804/08/1970Zoster Vaccines (1 of 2) Fall Risk Exphqeecu71/30/2013COVID-19 Vaccine ( season)2025 07/13/2022, 02/10/2022, 02/10/2022, Additional history existsInfluenza Vaccine (#1)510/06/2024, 06/05/2023, 06/12/2022, Additional history exists BmqpeqqwrpfXaubcayosqsb19/06/2013Colorectal Cancer ScreeningDiscontinued Pneumococcal Vaccine: 50+ NzvnpBzvldponr44/01/2015, 07/14/2013CT Colonography DiscontinuedFIT-DNADiscontinuedFITDiscontinuedFOBTDiscontinuedHIB VaccinesAged OutNo longer eligible [...] MemberRelationshipSpecialtyStart DateEnd Alvaro Harp MD [address] [facility] [place] [address] [facility]12/14/22
--- OUTSIDE RECORDS SUMMARY | 2025-07-29 10:08 | XMS_ITS | CCD ---
Author Organization Unknown Care Team Providers Care Loan Review Officer Name Role Phone Unavailable Primary Care Provider Unavailabl e Unavailable Chronic Care Management Unavaila ble Summary Purpose DataExchange Insurance Providers Payer name Policy type / Coverage type Covered democrat ID Effective Begin Date Effective End Date [facility] [id number] Unknown Unknown Family History Family History data not found Medication Administered No Medication Administered data Reason For Visit No Reason For Visit data Medical Equipment No Medical Equipment data Advance Directives No Advance Directive data
--- OUTSIDE RECORDS SUMMARY | 2025-07-29 10:09 | XMS_ITS | Encounter Summary ---
Author Organization [facility] Address [address] [facility] [place] [address] Care Team Providers Care Marine Services Technician Name Role Phone Elio Sesay DO Unavailable [phone] Alvaro Harp MD Primary Care Provider [phone] Encounter Details DateTypeDepartmentCare Team (Latest Contact Info)Zkxqrruxvrc94/18/2025amboo flowsheet [facility] [address] [place] [address] Ronaldo Hernandez PA [address] [place] [address] Social History Tobacco UseTypesPacks/DayYears UsedDateSmoking Tobacco: NeverAlcohol UseStandard Drinks/WeekCommentsNever0 (1 standard drink = 0.6 oz pure alcohol) CommentsUnknownSex and Gender InformationValueDate RecordedSex Assigned at Not on fileLegal IxvPvzyve55/01/2023 8:31 PM EDTGender IdentityNot on fileSexual OrientationNot on filedocumented as of this encounter Plan of Treatment DateTypeDepartmentCare Team (Latest Contact Info)Mmprxvvrnkv69/05/2025 8:00 AM ESTOffice Visit [facility] [address] [place] [address] Ronaldo Hernandez PA [address] [place] [address] documented as of this encounter Visit Diagnoses Not on filedocumented in this encounter Care Teams Team MemberRelationshipSpecialtyStart DateEnd Date Alvaro Harp MD [address] [place] [address] PCP - GeneralFamily Mndurknf31/17/25 Elio Sesay DO [address] [facility] [address] [place] [id number] Referring WcnttpyaaJydlwzhpp39/4/24documented as of this encounter
--- OUTSIDE RECORDS SUMMARY | 2025-07-29 10:09 | XMS_ITS | Encounter Summary ---
Author Organization [facility] Address [address] [facility] [place] [address] Care Team Providers Care Public Information Director Name Role Phone Elio Sesya DO Unavailable [phone] Alvaro Harp MD Primary Care Provider [phone] Encounter Details DateTypeDepartmentCare Team (Latest Contact Info)Bhnlsskuddz23/18/2025Travel Social History Tobacco UseTypesPacks/DayYears UsedDateSmoking Tobacco: NeverAlcohol UseStandard Drinks/WeekCommentsNever0 (1 standard drink = 0.6 oz pure alcohol) CommentsUnknownSex and Gender InformationValueDate RecordedSex Assigned at Not on fileLegal EtnOkvokm32/01/2023 8:31 PM EDTGender IdentityNot on fileSexual OrientationNot on filedocumented as of this encounter Plan of Treatment DateTypeDepartmentCare Team (Latest Contact Info)Zfeyvtzvlgh14/05/2025 8:00 AM ESTOffice Visit [facility] [address] [place] [address] Ronaldo Hernandez PA [address] [place] [address] documented as of this encounter Visit Diagnoses Not on filedocumented in this encounter Care Teams Team MemberRelationshipSpecialtyStart DateEnd Alvaro Harp MD [address] [facility] [place] [address] PCP - GeneralFamily Uaqglkak09/17/25 Elio Sesay DO [address] [place] [address] Referring WtqbsduosYbdbknnvu38/4/24documented as of this encounter
--- OUTSIDE RECORDS SUMMARY | 2025-07-29 10:09 | XMS_ITS | CCD ---
Author Organization Unknown Care Team Providers Care Property And Equipment Clerk Name Role Phone Unavailable Primary Care Provider Unavailabl e Unavailable Chronic Care Management Unavaila ble Summary Purpose DataExchange Insurance Providers Payer name Policy type / Coverage type Covered green party ID Effective Begin Date Effective End Date [facility] [id number] Unknown Unknown Family History Family History data not found Medication Administered No Medication Administered data Reason For Visit No Reason For Visit data Medical Equipment No Medical Equipment data Advance Directives No Advance Directive data
--- OUTSIDE RECORDS SUMMARY | 2025-07-29 10:09 | XMS_ITS | CCD ---
Author Organization Unknown Care Team Providers Care Education Professor Name Role Phone Unavailable Primary Care Provider Unavailabl e Unavailable Chronic Care Management Unavaila ble Summary Purpose DataExchange Insurance Providers Payer name Policy type / Coverage type Covered libertarian ID Effective Begin Date Effective End Date [facility] [id number] Unknown Unknown Family History Family History data not found Medication Administered No Medication Administered data Reason For Visit No Reason For Visit data Medical Equipment No Medical Equipment data Advance Directives No Advance Directive data
--- OUTSIDE RECORDS SUMMARY | 2025-07-29 10:09 | XMS_ITS | CCD ---
Author Organization Unknown Care Team Providers Care Manager Hospice Name Role Phone Unavailable Primary Care Provider Unavailabl e Unavailable Chronic Care Management Unavaila ble Summary Purpose DataExchange Insurance Providers Payer name Policy type / Coverage type Covered democrat ID Effective Begin Date Effective End Date [facility] [id number] Unknown Unknown Family History Family History data not found Medication Administered No Medication Administered data Reason For Visit No Reason For Visit data Medical Equipment No Medical Equipment data Advance Directives No Advance Directive data
--- OUTSIDE RECORDS SUMMARY | 2025-07-29 10:09 | XMS_ITS | Encounter Summary ---
Author Organization [facility] tem Address [id number] [place] [address] Care Team Providers Care Manager Quality Name Role Phone Alvaro Harp MD Primary Care Provider [phone] Encounter Details DateTypeDepartmentCare Team (Latest Contact Info)Wcqqbnsfybw11/12/2025Travel Social History Tobacco UseTypesPacks/DayYears UsedDateSmoking Tobacco: NeverSmokeless Tobacco: NeverAlcohol UseStandard Drinks/WeekCommentsNo0 (1 standard drink = 0.6 oz pure alcohol)ChildcareAnswerDate HmyakbavNujnkiritDvwrugd26/12/2019EmploymentAnswer Date KdzorupmJbkgvkhfhxIuhrvyc48/12/2019Hunger ScreeningAnswerDate Recorded Within the past 12 months we worried whether our food would run out before we got money to buy more.Never True06/23/2025Within the past 12 months the food we bought just didn't last and we didn't have money to get more.Never True 06/23/2025Purpose - LifeAnswerDate RecordedPurpose and direction in lifeUnknown 1CommentsNoSex and Gender InformationValueDate RecordedSex Assigned at BirthNot on fileLegal DnyMneokl32/06/2015 12:11 PM EDTGender IdentityNot on fileSexual OrientationNot on filedocumented as of this encounter Plan of Treatment DateTypeDepartmentCare Team (Latest Contact Info)Jrfrmnagyvr20/05/2026 11:00 AM ESTOffice Visit [facility] [address] [address] Bon Covarrubias MD [address] [facility] [place] [address] documented as of this encounter Visit Diagnoses Not on filedocumented in this encounter Care Teams Team MemberRelationshipSpecialtyStart DateEnd Date Alvaro Harp MD PCP - General03/15/17documented as of this encounter
--- OUTSIDE RECORDS SUMMARY | 2025-07-29 10:10 | XMS_ITS | CCD ---
Author Organization Unknown Care Team Providers Care Bagman/Woman Name Role Phone Unavailable Primary Care Provider Unavailabl e Unavailable Chronic Care Management Unavaila ble Summary Purpose DataExchange Insurance Providers Payer name Policy type / Coverage type Covered libertarian ID Effective Begin Date Effective End Date [facility] [id number] Unknown Unknown Family History Family History data not found Medication Administered No Medication Administered data Reason For Visit No Reason For Visit data Medical Equipment No Medical Equipment data Advance Directives No Advance Directive data
--- OUTSIDE RECORDS SUMMARY | 2025-07-29 10:10 | XMS_ITS | CCD ---
Author Organization Unknown Care Team Providers Care Vehicle Fare Collector Name Role Phone Unavailable Primary Care Provider Unavailabl e Unavailable Chronic Care Management Unavaila ble Summary Purpose DataExchange Insurance Providers Payer name Policy type / Coverage type Covered alliance party ID Effective Begin Date Effective End Date [facility] [id number] Unknown Unknown Family History Family History data not found Medication Administered No Medication Administered data Reason For Visit No Reason For Visit data Medical Equipment No Medical Equipment data Advance Directives No Advance Directive data
--- OUTSIDE RECORDS SUMMARY | 2025-07-29 10:10 | XMS_ITS | CCD ---
Author Organization Unknown Care Team Providers Care Hospice Volunteer Coordinator Name Role Phone Unavailable Primary Care Provider Unavailabl e Unavailable Chronic Care Management Unavaila ble Summary Purpose DataExchange Insurance Providers Payer name Policy type / Coverage type Covered republican ID Effective Begin Date Effective End Date [facility] [id number] Unknown Unknown Family History Family History data not found Medication Administered No Medication Administered data Reason For Visit No Reason For Visit data Medical Equipment No Medical Equipment data Advance Directives No Advance Directive data
--- OUTSIDE RECORDS SUMMARY | 2025-07-29 10:10 | XMS_ITS | CCD ---
Author Organization Unknown Care Team Providers Care Saw Handle Assembler Name Role Phone Unavailable Primary Care Provider Unavailabl e Unavailable Chronic Care Management Unavaila ble Summary Purpose DataExchange Insurance Providers Payer name Policy type / Coverage type Covered constitution party ID Effective Begin Date Effective End Date [facility] [id number] Unknown Unknown Family History Family History data not found Medication Administered No Medication Administered data Reason For Visit No Reason For Visit data Medical Equipment No Medical Equipment data Advance Directives No Advance Directive data
--- OUTSIDE RECORDS SUMMARY | 2025-07-29 10:11 | XMS_ITS | CCD ---
Author Organization Unknown Care Team Providers Care Top Printing Press Operator Name Role Phone Unavailable Primary Care Provider Unavailabl e Unavailable Chronic Care Management Unavaila ble Summary Purpose DataExchange Insurance Providers Payer name Policy type / Coverage type Covered constitution party ID Effective Begin Date Effective End Date [facility] [id number] Unknown Unknown Family History Family History data not found Medication Administered No Medication Administered data Reason For Visit No Reason For Visit data Medical Equipment No Medical Equipment data Advance Directives No Advance Directive data
--- OUTSIDE RECORDS SUMMARY | 2025-07-29 10:11 | XMS_ITS | CCD ---
Author Organization Unknown Care Team Providers Care Assistant Community Director Name Role Phone Unavailable Primary Care Provider Unavailabl e Unavailable Chronic Care Management Unavaila ble Summary Purpose DataExchange Insurance Providers Payer name Policy type / Coverage type Covered green party ID Effective Begin Date Effective End Date [facility] [id number] Unknown Unknown Family History Family History data not found Medication Administered No Medication Administered data Reason For Visit No Reason For Visit data Medical Equipment No Medical Equipment data Advance Directives No Advance Directive data
--- OUTSIDE RECORDS SUMMARY | 2025-07-29 10:11 | XMS_ITS | CCD ---
Author Organization Unknown Care Team Providers Care Eyeglass Lens Grinder Name Role Phone Unavailable Primary Care Provider Unavailabl e Unavailable Chronic Care Management Unavaila ble Summary Purpose DataExchange Insurance Providers Payer name Policy type / Coverage type Covered democrat ID Effective Begin Date Effective End Date [facility] [id number] Unknown Unknown Family History Family History data not found Medication Administered No Medication Administered data Reason For Visit No Reason For Visit data Medical Equipment No Medical Equipment data Advance Directives No Advance Directive data
--- OUTSIDE RECORDS SUMMARY | 2025-07-29 10:12 | XMS_ITS | Clinical Summary ---
Author Organization [facility] Address [address] [place] [address] Care Team Providers Care Facing Machine Operator Name Role Phone Elio Sesay DO Unavailable [phone] Alvaro Harp MD Primary Care Provider [phone] Allergies Active AllergyReactionsCriticalityNoted DateCommentsIodinated Contrast Media 05/24/20231891Gaogxfqe13/14/4073OvqszgTzfpDjv51/04/6660Ritxrexqzzq19/14/2023 Medications MedicationSigDispense QuantityRefillsLast FilledStart DateEnd DateStatus aspirin 81 MG EC tablet Take 81 mg by mouth in the morning.Active atorvastatin (Lipitor) 40 MG tablet Take 40 mg by mouth in the morning.Active clopidogrel (Plavix) 75 MG tablet Take by mouth in the morning.Active acetaminophen (Tylenol) 500 MG tablet Take 500 [...] of multiple pubic rami, right, initial encounter ([facility])Administer 1 spray into one nostril Daily 3.7 mL 07/15/2024ctive gabapentin (Neurontin) 100 MG capsule Indications:Left hand painTake 1 capsule (100 mg) by mouth in the morning and 1 capsule (100 mg) before bedtime. 60 capsule 212/02/2024ActiveHospital, Clinic, or Other Facility Administered Medication Ordered DoseRouteFrequencyStart DateEnd DateStatus bupivacaine PF (Marcaine) 0.5 % injection 1 mL Indications:Effusion of right knee,Internal derangement of right knee1 mLIJOnce PRN Qphohdcge60/18/40622509/27/2024Ended methylPREDNISolone acetate (DEPO-Medrol) injection 40 mg Indications:Effusion of right knee,Internal derangement of right knee40 mgIXOnce PRN Cbypumgiw65Ended Active Problems ProblemNoted DateDiagnosed DateInternal derangement of right knee01/09/2024 Primary osteoarthritis of left knee7212Oybxyufonpgaqzq02/14/2023 Ascnpmkqfsjqhl95/03/2019Chronic /23/5977Imfzwyuqlaol33/19/2013 Degeneration of lumbar intervertebral disc05/27/2010Pure hypercholesterolemia 03/18/2010GERD (gastroesophageal reflux disease)02/11/2010Disorder of autonomic nervous knzmtw4402/11/2010Diabetes mellitus without /04/2010Chronic systolic heart sgxsyoa9202/11/2010therosclerosis of coronary drggzn5102/11/2010 Encounters DateTypeDepartmentCare AkvjDyrxopqegnd46/18/2025 9:10 AM ESTAncillary Procedure [facility] [address] [place] [phone] Nloiutl8207/28/2025 9:00 AM ESTOffice Visit [facility] [address] [place], [place] [address] [place] [phone] Ronaldo Hernandez PA Acute pain of right knee (Primary Dx); Effusion of right knee; Internal derangement of right knee07/28/2025amboo flowsheet [facility] [address] [place] [phone] Ronaldo Hernandez PA 07/28/2025Travelfrom Last 3 Months Immunizations ImmunizationAdministration DatesNext DueInfluenza, High Dose Seasonal, Preservative Free06/12/2022,06/18/2018,06/14/2016,06/03/2015Influenza, High-dose Seasonal, Quadrivalent, Preservative Free05/30/2022,06/15/2021Influenza, Seasonal, Quadrivalent, Fdceryjwqt36/26/2023Influenza, injectable, quadrivalent, preservative free05/22/2017Influenza, seasonal, pkjbottksj44/01/2014Influenza, seasonal, intradermal, preservative free06/30/2013Pneumococcal Conjugate PCV 13 09/10/2014Pneumococcal Polysaccharide FJNB443209/13/20128993FXTI-ZsH-1, Unspecified 01/10/2021Zoster, live08/11/2013 Family History Medical HistoryRelationNameCommentsCancerFatherHeart diseaseMotherRelationName StatusCommentsFatherDeceasedMotherDeceasedOtherSpouseAlive Social History Tobacco UseTypesPacks/DayYears UsedDateSmoking Tobacco: Never Tobacco Cessation:Counseling Given: Not Answered Alcohol UseStandard Drinks/WeekCommentsNever0 (1 standard drink = 0.6 oz pure alcohol)CommentsUnknownSex and Gender InformationValueDate RecordedSex Assigned at BirthNot on fileLegal HujVgiuez13/01/2023 8:31 PM EDTGender Identity Not on fileSexual OrientationNot on file Last Filed Vital Signs Vital SignReadingTime TakenCommentsBlood Rmrmtpjv211/8208/11/2024 2:21 PM EST Afeaa607208/11/2024 2:21 PM ZKUHjrrsnrszqm82.3 ??C (97.4 ??F)01/09/2024 8:13 AM EDTRespiratory Rate--Oxygen Kllxurlglu16%08/11/2024 2:21 PM ESTInhaled Oxygen Concentration--Xdzigj61.4 kg (120 lb)07/28/2025 9:03 AM SMGUbaxsx270 cm (5' 3 ) 07/28/2025 9:03 AM ESTBody Mass Index21.26109/27/2024 9:03 AM EST Plan of Treatment DateTypeDepartmentCare Team (Latest Contact Info)Filyrnexnyi32/05/2025 8:00 AM ESTOffice Visit [facility] [address] [place] [address] Ronaldo Hernandez, PA [address] [place] [address] Health MaintenanceDue DateLast DoneCommentsCOVID-19 Vaccine (2024- season) /11/2021, 06/29/2021, 01/10/2021, Additional history exists Pneumococcal Vaccine: 65+ KhqvcVwlegnzoy23/01/2015, 07/14/2013Colonoscopy Gzzfdktbdhoc41/16/2021, 05/26/2021, 10/16/2012Colorectal Cancer Screening DiscontinuedInfluenza EazhhbtOargbhlxc47/12/2025, 06/19/2024, 06/05/2023, Additional history existsCT ColonographyDiscontinuedFIT-DNADiscontinuedFIT DiscontinuedFOBTDiscontinuedSigmoidoscopyDiscontinued Procedures Procedure NamePriorityDate/TimeAssociated DiagnosisCommentsPR ARTHROCENTESIS ASPIR&/INJ MAJOR JT/BURSA W/O WOUgkkcqn20/18/2025 9:25 AM EST Effusion of right knee Internal derangement of right knee XR KNEE 1-2 VIEWS KIHBEMfaxedu68/18/2025 9:07 AM EST Acute pain of right knee UQLHABLMENKVwwpzww74/06/2013 12:00 PM EST from Last 3 Months or Most Recently Relevant to Health Maintenance Results * [place] ARTHROCENTESIS ASPIR&/INJ MAJOR JT/BURSA W/O US (07/28/2025 [...] No acute bony ??process Authorizing ProviderResult TypeResult Maria Antonia Hernandez PAIMG XR PROCEDURES Final Result * Colonoscopy (10/16/2012 12:00 PM EST)Anatomical RegionLateralityModality EndoscopySpecimen (Source)Anatomical Location / LateralityCollection Method / VolumeCollection TimeReceived Time10/16/2012 12:00 PM EST Narrative 10/16/2012 12:00 PM EST PERFORMED AT [facility] LOCATION:[id number] Normal Procedure Note CONVERSION, GENERIC - 01/25/2023 PERFORMED AT [facility] LOCATION:[id number] Normal Authorizing ProviderResult TypeResult William Brower MDENDOSCOPY PROCEDURE ORDERABLESFinal Result from Last 3 Months or Most Recently Relevant to Health Maintenance Insurance Care Teams Team MemberRelationshipSpecialtyStart DateEnd Date Alvaro Harp MD [address] [place] [address] PCP - GeneralFamily Ptjbmidh39/17/25 Elio Sesay DO [address] [id number] Referring DlwlizdknKuhgeklkf71/4/24
--- OUTSIDE RECORDS SUMMARY | 2025-07-29 10:12 | XMS_ITS | CCD ---
Author Organization Unknown Care Team Providers Care Building Components Designer Name Role Phone Unavailable Primary Care Provider Unavailabl e Unavailable Chronic Care Management Unavaila ble Summary Purpose DataExchange Insurance Providers Payer name Policy type / Coverage type Covered republican ID Effective Begin Date Effective End Date [facility] [id number] Unknown Unknown Family History Family History data not found Medication Administered No Medication Administered data Reason For Visit No Reason For Visit data Medical Equipment No Medical Equipment data Advance Directives No Advance Directive data
--- OUTSIDE RECORDS SUMMARY | 2025-07-29 10:12 | XMS_ITS | CCD ---
Author Organization Unknown Care Team Providers Care Premium Card Cancellation Clerk Name Role Phone Unavailable Primary Care Provider Unavailabl e Unavailable Chronic Care Management Unavaila ble Summary Purpose DataExchange Insurance Providers Payer name Policy type / Coverage type Covered democrat ID Effective Begin Date Effective End Date [facility] [id number] Unknown Unknown Family History Family History data not found Medication Administered No Medication Administered data Reason For Visit No Reason For Visit data Medical Equipment No Medical Equipment data Advance Directives No Advance Directive data
--- OUTSIDE RECORDS SUMMARY | 2025-07-29 10:12 | XMS_ITS | CCD ---
Author Organization Unknown Care Team Providers Care Graphics Specialist Name Role Phone Unavailable Primary Care Provider Unavailabl e Unavailable Chronic Care Management Unavaila ble Summary Purpose DataExchange Insurance Providers Payer name Policy type / Coverage type Covered constitution party ID Effective Begin Date Effective End Date [facility] [id number] Unknown Unknown Family History Family History data not found Medication Administered No Medication Administered data Reason For Visit No Reason For Visit data Medical Equipment No Medical Equipment data Advance Directives No Advance Directive data
--- OUTSIDE RECORDS SUMMARY | 2025-07-29 10:13 | XMS_ITS | CCD ---
Author Organization Unknown Care Team Providers Care Gis Manager Name Role Phone Unavailable Primary Care Provider Unavailabl e Unavailable Chronic Care Management Unavaila ble Summary Purpose DataExchange Insurance Providers Payer name Policy type / Coverage type Covered libertarian ID Effective Begin Date Effective End Date [facility] [id number] Unknown Unknown Family History Family History data not found Medication Administered No Medication Administered data Reason For Visit No Reason For Visit data Medical Equipment No Medical Equipment data Advance Directives No Advance Directive data
--- OUTSIDE RECORDS SUMMARY | 2025-07-29 10:14 | XMS_ITS | Clinical Summary ---
Author Organization [facility] Address [id number] [address] [place] [address] Care Team Providers Care Cartographic Engineer Name Role Phone Alvaro Harp MD Primary Care Provider [phone] Allergies Active AllergyReactionsCriticalityNoted DuefFwmsarpnDtlLisxdjkp11/14/2017 IV DYE Iodinated Contrast MediaAnaphylaxis,Other (See Comments)High12/07/2022Morphine Nausea And Vomiting,Kagdriii32/06/2018Morpholine HgygjlemeGmepowla44/14/2017 Nsaids (Non-Steroidal Anti-Inflammatory Drug)GI Urmutbje56/08/2024enicillins OjveYfm9603/23/2017 Medications MedicationSigDispense QuantityRefillsLast FilledStart DateEnd DateStatus acetaminophen [...] mg total) by mouth in the morning.03/27/2024ctive Active Problems ProblemNoted DateDiagnosed DateChronic tplcmvxvbuwu73/23/2017 Encounters DateTypeDepartmentCare XpydEdupfyrwxru99/12/8504Rhglry57/05/2025Telephone [facility] [address] [place] [address] BashirJenaRANDY 06/23/2025 10:30 AM EDTOffice Visit [facility] [address] [place] [phone] Kaitlin Macdonald, BUSINESS SERVICES SPECIALIST SALES-POLISHER DIAL Incontinence of feces, unspecified fecal incontinence type (Primary Dx); Diverticular stricture (CMS-HCC)06/23/2025Travelfrom Last 3 Months Family History Medical HistoryRelationNameCommentsNo Known ProblemsFatherHeart diseaseMother RelationNameStatusCommentsFatherDeceasedMotherDeceasedSon 1AliveSon 2Alive Social History Tobacco UseTypesPacks/DayYears UsedDateSmoking Tobacco: NeverSmokeless Tobacco: NeverAlcohol UseStandard Drinks/WeekCommentsNo0 (1 standard drink = 0.6 oz pure alcohol)ChildcareAnswerDate SfosjxntFuchwapaoRlaehtf63/12/2019EmploymentAnswer Date DqrqgwcfEturacfoxxIuvbnkl31/12/2019Hunger ScreeningAnswerDate Recorded Within the past 12 months we worried whether our food would run out before we got money to buy more.Never True06/23/2025Within the past 12 months the food we bought just didn't last and we didn't have money to get more.Never True 06/23/2025Purpose - LifeAnswerDate RecordedPurpose and direction in lifeUnknown 1CommentsNoSex and Gender InformationValueDate RecordedSex Assigned at BirthNot on fileLegal WpcRtleie20/06/2015 12:11 PM EDTGender IdentityNot on fileSexual OrientationNot on file Last Filed Vital Signs Vital SignReadingTime TakenCommentsBlood Cbryxryb122/8206/23/2025 10:08 AM EDT Sfypj939806/23/2025 10:08 AM GWBWmqojprauwx03.1 ??C (97 ??F)07/28/2024 7:16 AM EST Respiratory Papj6210 9:31 AM ESTOxygen Hlqbkkgimz83%07/28/2024 10:00 AM ESTInhaled Oxygen Concentration--Xueakt31.8 kg (118 lb 9.6 oz)06/23/2025 10:08 AM ADNHhyqvf535.6 cm (5' 4 )06/23/2025 10:08 AM EDTBody Mass Index20.36 06/23/2025 10:08 AM EDT Plan of Treatment DateTypeDepartmentCare Team (Latest Contact Info)Luseaemtxlo75/05/2026 11:00 AM ESTOffice Visit [facility] [address] [place] [address] [address] [place] [phone] [place] [address] [place] [address], [address] [place] [address] Health MaintenanceDue DateLast DoneCommentsDepression Skpehfljg59/30/1960Fall Risk Xhztcnduu62/30/2013Zoster (Shingles) Vaccine (3 of 3), 08/11/2013RSV ( or age 60+ yrs) (1 - 1-dose 75+ series)3COVID- 19 Vaccine ( season)5109/12/2021, 02/10/2022, 06/29/2021, Additional history existsTobacco Fzhukezon98DTaP,Tdap and Td Vaccines (2 - Td or Tdap)Influenza VaccineCompleted 06/21/2025, 06/19/2024, 06/05/2023, Additional history exists Medical Devices Not on file Insurance Care Teams Team MemberRelationshipSpecialtyStart DateEnd Date Alvaro Harp MD PCP - General03/15/17
--- OUTSIDE RECORDS SUMMARY | 2025-07-29 10:14 | XMS_ITS | Encounter Summary ---
Author Organization [facility] Status4 Sys tem Address [id number] [address] [place] [address] Care Team Providers Care Hand Collator Name Role Phone Alvaro Harp MD Primary Care Provider [phone] Encounter Details DateTypeDepartmentCare Team (Latest Contact Info)Fctythqtozv29/05/2025Telephone [facility] [address] [place] [address] Jena Camejo CMA Social History Tobacco UseTypesPacks/DayYears UsedDateSmoking Tobacco: NeverSmokeless Tobacco: NeverAlcohol UseStandard Drinks/WeekCommentsNo0 (1 standard drink = 0.6 oz pure alcohol)ChildcareAnswerDate YhaagccaWmnxvaexbTwhaiba78/12/2019EmploymentAnswer Date ZcqiftyoIdfhmalxryIebhuak72/12/2019Hunger ScreeningAnswerDate Recorded Within the past 12 months we worried whether our food would run out before we got money to buy more.Never True06/23/2025Within the past 12 months the food we bought just didn't last and we didn't have money to get more.Never True 06/23/2025Purpose - LifeAnswerDate RecordedPurpose and direction in lifeUnknown 1CommentsNoSex and Gender InformationValueDate RecordedSex Assigned at BirthNot on fileLegal UptKemvwu83/06/2015 12:11 PM EDTGender IdentityNot on fileSexual OrientationNot on filedocumented as of this encounter Miscellaneous Notes * Telephone Encounter - Jena Camejo CMA - 07/15/2025 10:33 AM EST Sheila called the office and she was confused on if she should keep her appointment with [facility] for her GI issues, or if she should try to find someone closer to her home. Her friend told her that their was a surgeon in [place] that is not a lot closer to her. I spoke on her speaker phone with her, her , & her son Aron who will be driving her to the appointment. He does know how to use [employer]. While she does understand it's her decision where she goes, she was asking for some advise. I told her if she stays in [facility] they'll have easy access to everything [...] Plan of Treatment DateTypeDepartmentCare Team (Latest Contact Info)Zdbfadpbihb12/05/2026 11:00 AM ESTOffice Visit [facility] [address] [place] [address] [address] [place] [address] Bon Covarrubias MD [address] [facility] [place] [address] documented as of this encounter Visit Diagnoses Not on filedocumented in this encounter Care Teams Team MemberRelationshipSpecialtyStart DateEnd Date Alvaro Harp MD [facility] - General03/15/17documented as of this encounter
[2025-07-29 10:23] LABS: Hematocrit 37.1 % (36.0-48.0); Hemoglobin 11.9 g/dL (12.0-16.0); Immature Granulocytes Abs Auto 0.04 10^3/uL (0.00-0.03); Immature Granulocytes Pct Auto 0.3 % (0.0-0.5); Lymphocytes Absolute Auto 1.7 10^3/uL (1.2-3.8); Mean Corpuscular HGB Conc 32.1 g/dL (29.9-35.2); Mean Corpuscular Hemoglobin 31.5 pg (26.7-34.0); Mean Corpuscular Volume 98.1 fL (81.0-99.0); Platelet Count 330 10^3/uL (150-450); Red Blood Count 3.78 10^6/uL (4.20-5.40); White Blood Count 11.8 10^3/uL (4.0-11.0)
[2025-07-29 10:30] LABS: INR 1.02; Partial Thromboplastin Time 26.0 sec (22.3-36.2); Prothrombin Time 10.8 sec (9.0-11.6)
[2025-07-29 10:36] LABS: Ammonia <10 umol/L (11-32)
[2025-07-29 10:37] LABS: Alanine Aminotransferase 27 U/L (14-59); Albumin Globulin Ratio 0.7; Albumin Level 3.3 g/dL (3.4-5.0); Alkaline Phosphatase 159 U/L (46-116); Anion Gap 16.9; Aspartate Amino Transferase 18 U/L (15-37); Blood Urea Nitrogen 42.0 mg/dL (7.0-18.0); Calcium 10.1 mg/dL (8.5-10.1); Carbon Dioxide 22.1 mmol/L (21.0-32.0); Chloride 108 mmol/L (98-107); Estimated GFR (African America 25 (>=60 mL/min/1.73m^2); Estimated GFR (Non-African Ame 21 (>=60 mL/min/1.73m^2); Globulin 4.8 g/dL; Glucose 139 mg/dL (74-106); Potassium 5.0 mmol/L (3.5-5.1); Sodium 142 mmol/L (136-145); Total Protein 8.1 g/dL (6.4-8.2)
== END 2025-07-29 09:55 | disposition home or self-care (01) ==
LOC: LAB 09:55
PROVIDERS: PCP Family Medicine; Visit Provider Family Medicine
DX: K74.60 Unspecified cirrhosis of liver (principal); I10 Essential (primary) hypertension; D50.9 Iron deficiency anemia, unspecified
CPT/HCPCS: 36415; 80053; 82140; 85025; 85610; 85730

== ENCOUNTER 2025-08-13 12:59 | Outpatient (OUT) | payer MEDICARE, SELFPAY ==
--- OUTSIDE RECORDS SUMMARY | 2025-08-05 | XMS_ITS | Encounter Summary ---
Author Organization [facility] Address [address] [place] [address] Care Team Providers Care Traffic Analysis Technician Name Role Phone Alvaro Harp MD Primary Care Provider [phone] Encounter Details DateTypeDepartmentCare Team (Latest Contact Info)Jnshbijfkbl92/26/2025 - 08/05/2025 12:04 AM ESTHospital Encounter [facility] [[email or web address] Radiology External Films [address] [place] [phone] Discharge Disposition: Home or Self Care () Social History Tobacco UseTypesPacks/DayYears UsedDateSmoking Tobacco: NeverSmokeless Tobacco: NeverUT Safety & EnvironmentAnswerDate RecordedFear of Current or Ex-PartnerNot on file11/01/2023Emotionally AbusedNot on file11/01/2023hysically AbusedNot on file11/01/2023Sexually AbusedNot on file11/01/2023hysically or Sexually Abused Not on file11/01/2023CommentsUnknownSex and Gender InformationValueDate RecordedSex Assigned at NrtlvMpxjxq05/30/2025 3:49 PM EDTLegal SexFemale 03/08/2022 10:03 PM EDTGender AcdvnkqkYeison66/30/2025 3:49 PM EDTSexual OrientationHeterosexual or Fscooaof69/30/2025 3:49 PM EDTdocumented as of this encounter Medications at Time of Discharge MedicationSigDispense QuantityRefillsLast FilledStart DateEnd Date blood pressure test kit-large kit Indications:Benign hypertensive heart disease with heart failure (CMS/HCC)1 kit if needed each day (check blood pressure 1-2 hours after morning and evening medications). 1 kit 12/15/2022 clopidogrel (Plavix) 75 mg tablet Take 75 mg by mouth in the morning.01/28/2024 ondansetron ODT (Zofran-ODT) 4 mg disintegrating tablet Take 4 mg by mouth if needed.10/16/2024 pantoprazole (ProtoNix) 40 mg EC tablet Take 40 mg by mouth in the morning and at bedtime. sucralfate (Carafate) 1 gram tablet Take 1 tablet by mouth in the morning, noon, at afternoon, at bedtime,. aspirin 81 mg chewable tablet Chew 81 mg 1 (one) time each day.08/12/2025 atorvastatin (Lipitor) 20 mg tablet Take 20 mg by mouth in the morning.08/12/2025 carvedilol (Coreg) 3.125 mg tablet Indications:Benign hypertensive heart disease with heart failure (CMS/HCC)Take 1 tablet (3.125 mg) by mouth with breakfast and with evening meal. 180 tablet clopidogrel (Plavix) 75 mg tablet Take by mouth in the morning.08/12/2025 metoprolol tartrate (Lopressor) 25 mg tablet Take 25 mg by mouth two times daily. rosuvastatin (Crestor) 20 mg tablet Take 20 tablets by mouth in the morning.08/12/2025documented as of this encounter Plan of Treatment DateTypeDepartmentCare Team (Latest Contact Info)Zmutiooobuv21/15/2025 10:00 AM ESTHospital Encounter [facility] [[email or web address]] Main Operating Room [address] [place] [phone] Patricio Maria MD [address] [phone] 08/24/2025 10:00 AM EST - 08/24/2025 12:30 PM ESTSurgery [facility] [[email or web address]] Main Operating Room [address] [place] [phone] Patricio Maria MD [address] [phone] ROBOTIC CSNCSOKMGBWEXGL94/23/2025 9:15 AM ESTOffice Visit [facility] [[email or web address]] Surgery Clinic [address] [place] [address] Patricio Maria MD [address] [facility] [place] [address] 10/12/2025 9:00 AM ESTOffice Visit [facility] [address] [place] [phone] Elio Youssef MD [address] [place] [address] NamePriorityAssociated DiagnosesDate/TimeCHOLECYSTECTOMY, ROBOT-ASSISTED Calculus of gallbladder with cholecystitis without biliary obstruction, unspecified cholecystitis acuity 08/24/2025 10:00 AM ESTdocumented as of this encounter Procedures Procedure NamePriorityDate/TimeAssociated DiagnosisCommentsUS TRANSFER OF OUTSIDE NRRTIDqqmlli93/26/2025 12:00 AM EST documented in this encounter Results * US transfer of outside films (08/05/2025 12:00 AM EST)Specimen (Source) Anatomical Location / LateralityCollection Method / VolumeCollection Time Received Time Narrative IMAGING - 08/05/2025 12:02 PM EST This order has been auto-finalized and does not contain a result. Authorizing ProviderResult TypeResult StatusPatricio Maria MDIMMikki US PROCEDURES Final ResultPerforming OrganizationAddressCity/State/ZIP CodePhone Number IMAGING documented in this encounter Visit Diagnoses Not on filedocumented in this encounter Care Teams Team MemberRelationshipSpecialtyStart DateEnd Date Alvaro Harp MD [address] [facility] [address] [place] [address] PCP - General12/14/22documented as of this encounter
--- OUTSIDE RECORDS SUMMARY | 2025-08-05 00:05 | XMS_ITS | Encounter Summary ---
Author Organization [facility] Address [address] [place] [address] Care Team Providers Care Bail Agent Name Role Phone Alvaro Harp MD Primary Care Provider [phone] Encounter Details DateTypeDepartmentCare Team (Latest Contact Info)Zikfimegywj64/26/2025 12:05 AM EST - 08/05/2025 12:09 AM ESTHospital Encounter [facility] Radiology External Films [address] [place] [phone] Discharge Disposition: Home or Self Care () Social History Tobacco UseTypesPacks/DayYears UsedDateSmoking Tobacco: NeverSmokeless Tobacco: NeverUT Safety & EnvironmentAnswerDate RecordedFear of Current or Ex-PartnerNot on file11/01/2023Emotionally AbusedNot on file11/01/2023hysically AbusedNot on file11/01/2023Sexually AbusedNot on file11/01/2023hysically or Sexually Abused Not on file11/01/2023CommentsUnknownSex and Gender InformationValueDate RecordedSex Assigned at AdmjpKnwxsk58/30/2025 3:49 PM EDTLegal SexFemale 03/08/2022 10:03 PM EDTGender TtekhxphHhkofa26/30/2025 3:49 PM EDTSexual OrientationHeterosexual or Ytdbrnlk72/30/2025 3:49 PM EDTdocumented as of this encounter [...] Plan of Treatment DateTypeDepartmentCare Team (Latest Contact Info)Fedxjdcahqh50/15/2025 10:00 AM ESTHospital Encounter [facility] Main Operating Room [address] [place] [phone] Patricio Maria MD [address] [facility] [address] [phone] 08/24/2025 10:00 AM EST - 08/24/2025 12:30 PM ESTSurgery [facility] Main Operating Room [address] [place] [address] Patricio Maria MD [address] [address] ROBOTIC SGWFECMCRYSLMJW77/23/2025 9:15 AM ESTOffice Visit [facility] Surgery Clinic [address] [place] [address] Patricio Maria MD [address] [place] [address] 10/12/2025 9:00 AM ESTOffice Visit [facility] [address] [place] [address] Elio Youssef MD [address] [place] [address] NamePriorityAssociated DiagnosesDate/TimeCHOLECYSTECTOMY, ROBOT-ASSISTED Calculus of gallbladder with cholecystitis without biliary obstruction, unspecified cholecystitis acuity 08/24/2025 10:00 AM ESTdocumented as of this encounter Procedures Procedure NamePriorityDate/TimeAssociated DiagnosisCommentsUS TRANSFER OF OUTSIDE FKONQIkwtfgu04/26/2025 12:05 AM EST documented in this encounter Results * US transfer of outside films (08/05/2025 12:05 AM EST)Specimen (Source) Anatomical Location / LateralityCollection [...] DateEnd Date Alvaro Harp MD [address] [facility] [address] [address] PCP - General12/14/22documented as of this encounter
--- OUTSIDE RECORDS SUMMARY | 2025-08-05 00:10 | XMS_ITS | Encounter Summary ---
Author Organization [facility] Address [address] [place] [address] Care Team Providers Care Attorney General Name Role Phone Alvaro Harp MD Primary Care Provider [phone] Encounter Details DateTypeDepartmentCare Team (Latest Contact Info)Wltkjaqbxho10/26/2025 12:10 AM EST - 08/05/2025 12:14 AM ESTHospital Encounter [facility] Radiology External Films [address] [place] [phone] Discharge Disposition: Home or Self Care () Social History Tobacco UseTypesPacks/DayYears UsedDateSmoking Tobacco: NeverSmokeless Tobacco: NeverUT Safety & EnvironmentAnswerDate RecordedFear of Current or Ex-PartnerNot on file11/01/2023Emotionally AbusedNot on file11/01/2023hysically AbusedNot on file11/01/2023Sexually AbusedNot on file11/01/2023hysically or Sexually Abused Not on file11/01/2023CommentsUnknownSex and Gender InformationValueDate RecordedSex Assigned at RkndyMhnzje45/30/2025 3:49 PM EDTLegal SexFemale 03/08/2022 10:03 PM EDTGender BbfsjfxaTjwzuw96/30/2025 3:49 PM EDTSexual OrientationHeterosexual or Wnaexicd36/30/2025 3:49 PM EDTdocumented as of this encounter [...] Plan of Treatment DateTypeDepartmentCare Team (Latest Contact Info)Lvxevkgpuog95/15/2025 10:00 AM ESTHospital Encounter [facility] Main Operating Room [address] [place] [phone] Patricio Maria MD [address] [facility] [address] [phone] 08/24/2025 10:00 AM EST - 08/24/2025 12:30 PM ESTSurgery [facility] Main Operating Room [address] [place] [phone] Patricio Maria MD [address] [address] ROBOTIC HCFLRXMNFNTIDTO67/23/2025 9:15 AM ESTOffice Visit [facility] Surgery Clinic [address] [place] [address] Patricio Maria MD [address] [place] [phone] 10/12/2025 9:00 AM ESTOffice Visit [facility] [address] [place] [phone] Elio Youssef MD [address] [place] [address] NamePriorityAssociated DiagnosesDate/TimeCHOLECYSTECTOMY, ROBOT-ASSISTED Calculus of gallbladder with cholecystitis without biliary obstruction, unspecified cholecystitis acuity 08/24/2025 10:00 AM ESTdocumented as of this encounter Procedures Procedure NamePriorityDate/TimeAssociated DiagnosisCommentsCT TRANSFER OF OUTSIDE KPPQKHpxwheg98/26/2025 12:10 AM EST documented in this encounter Results * CT transfer of outside films (08/05/2025 12:10 AM EST)Specimen (Source) Anatomical Location / LateralityCollection Method / VolumeCollection Time Received Time Narrative IMAGING - 08/05/2025 12:02 PM EST This order has been auto-finalized and does not contain a result. Authorizing ProviderResult TypeResult StatusPatricio Maria MDIMG CT PROCEDURES Final ResultPerforming OrganizationAddressCity/State/ZIP CodePhone Number IMAGING documented in this encounter Visit Diagnoses Not on filedocumented in this encounter Care Teams Team MemberRelationshipSpecialtyStart DateEnd Date Alvaro Harp MD [address] [facility] [address] [address] PCP - General12/14/22documented as of this encounter
--- OUTSIDE RECORDS SUMMARY | 2025-08-05 00:15 | XMS_ITS | Encounter Summary ---
Author Organization [facility] Address [address] [place] [address] Care Team Providers Care Bank Officer Name Role Phone Alvaro Harp MD Primary Care Provider [phone] Encounter Details DateTypeDepartmentCare Team (Latest Contact Info)Thsqwqulhgf50/26/2025 12:15 AM EST - 08/05/2025 11:59 PM ESTHospital Encounter [facility] Radiology External Films [address] [place] [phone] Discharge Disposition: Home or Self Care () Social History Tobacco UseTypesPacks/DayYears UsedDateSmoking Tobacco: NeverSmokeless Tobacco: NeverUT Safety & EnvironmentAnswerDate RecordedFear of Current or Ex-PartnerNot on file11/01/2023Emotionally AbusedNot on file11/01/2023hysically AbusedNot on file11/01/2023Sexually AbusedNot on file11/01/2023hysically or Sexually Abused Not on file11/01/2023CommentsUnknownSex and Gender InformationValueDate RecordedSex Assigned at DekamHwrlvn67/30/2025 3:49 PM EDTLegal SexFemale 03/08/2022 10:03 PM EDTGender WbwjlenaLijuup48/30/2025 3:49 PM EDTSexual OrientationHeterosexual or Fbichpod62/30/2025 3:49 PM EDTdocumented as of this encounter [...] Plan of Treatment DateTypeDepartmentCare Team (Latest Contact Info)Pzbgudjgpqe75/15/2025 10:00 AM ESTHospital Encounter [facility] Main Operating Room [address] [place] [phone] Patricio Maria MD [address] [phone] 08/24/2025 10:00 AM EST - 08/24/2025 12:30 PM ESTSurgery [facility] Main Operating Room [address] [place] [phone] Patricio Maria MD [address] [address] ROBOTIC LUDOBBSSJTJFLMM23/23/2025 9:15 AM ESTOffice Visit [facility] Surgery Clinic [address] [place] [address] Patricio Maria MD [address] [place] [address] 10/12/2025 9:00 AM ESTOffice Visit [facility] [address] [place] [phone] Elio Youssef MD [address] [place] [address] NamePriorityAssociated DiagnosesDate/TimeCHOLECYSTECTOMY, ROBOT-ASSISTED Calculus of gallbladder with cholecystitis without biliary obstruction, unspecified cholecystitis acuity 08/24/2025 10:00 AM ESTdocumented as of this encounter Procedures Procedure NamePriorityDate/TimeAssociated DiagnosisCommentsCT TRANSFER OF OUTSIDE RBZPWKxebwvv28/26/2025 12:15 AM EST documented in this encounter Results * CT transfer of outside films (08/05/2025 12:15 AM EST)Specimen (Source) Anatomical Location / LateralityCollection [...] DateEnd Date Alvaro Harp MD [address] [facility] [address] [address] PCP - General12/14/22documented as of this encounter
--- OUTSIDE RECORDS SUMMARY | 2025-08-11 13:30 | XMS_ITS | Encounter Summary ---
Author Organization [facility] Address [address] [place] [address] Care Team Providers Care Orthopedically Impaired Teacher Name Role Phone Alvaro Harp MD Primary Care Provider [phone] Reason for Visit * ReasonCommentsConsultPatient here for gallstones, History of cirrhosis. Referral scanned under media. [facility] imaging - requested. Encounter Details DateTypeDepartmentCare Team (Latest Contact Info)Xxzftofnhtl30/02/2025 1:30 PM ESTConsult [facility] Surgery Clinic [address] [place] [address] Patricio Maria MD [address] [phone] Calculus of gallbladder with cholecystitis without biliary obstruction, unspecified cholecystitis acuity (Primary Dx); History of CVA (cerebrovascular accident) Social History Tobacco UseTypesPacks/DayYears UsedDateSmoking Tobacco: NeverSmokeless Tobacco: Never Tobacco Cessation:Counseling Given: Not Answered PHQ-2AnswerDate RecordedPatient Health Questionnaire-2 Epbpb60510/12/2024 Humiliation, Afraid, Rape, and Kick questionnaireAnswerDate RecordedWithin the last year, have you been afraid of your partner or ex-partner?No08/11/2025 Emotionally AbusedNot on file08/11/2025Physically AbusedNot on file08/11/2025 Sexually AbusedNot on file08/11/2025CommentsUnknownSex and Gender InformationValueDate RecordedSex Assigned at WpiukMpkeai19/30/2025 3:49 PM EDT Legal NccLsgbse66/29/2022 10:03 PM EDTGender DiaketkaEkyswn78/30/2025 3:49 PM EDTSexual OrientationHeterosexual or Eijaeilu89/30/2025 3:49 PM EDTdocumented as of this encounter Last Filed Vital Signs Vital SignReadingTime TakenCommentsBlood Cuhuyaxc173/7008/11/2025 1:10 PM EST Peasg273108/11/2025 1:10 PM AQOJbpcrtweafv42.6 ??C (97.9 ??F)08/11/2025 1:10 PM ESTRespiratory Ixpf355710/12/2024 1:10 PM ESTOxygen Nmssgvkgnm50%08/11/2025 1:10 PM ESTInhaled Oxygen Concentration--Nsqdxy85.9 kg (121 lb)08/11/2025 1:10 PM EST Height--Body Mass Index20.77001/29/2023 1:03 PM EDTdocumented in this encounter Functional Status documented as of this encounter Progress Notes * Patricio Maria MD - 08/11/2025 1:30 PM EST Subjective Patient ID: Sheila Mac is a 75 y.o. female who presents for Consult (Patient here for gallstones, History of cirrhosis. Referral scanned under [place]. [facility] imaging - requested.). HPI 68 years old white female is visiting for chronic intermittent epigastric pain. She denies of nausea, vomiting. She denies of jaundice or fever. She denies of alcohol use. She denies of history of hepatitis. She is on Plavix for history of stroke. Review of Systems Constitutional: Positive for appetite change and fatigue. HENT: Positive for trouble swallowing. Eyes: Negative. Respiratory: Positive for shortness of breath. Cardiovascular: Negative. Gastrointestinal: Positive for abdominal pain, constipation, diarrhea and nausea. Endocrine: Negative. Genitourinary: Negative. Musculoskeletal: Positive for arthralgias and back pain. Skin: Negative. Allergic/Immunologic: Negative. Neurological: Negative. Hematological: Bruises/bleeds easily. Objective Visit Vitals BP 123/70 (BP Location: Left arm, Patient Position: Sitting, BP Cuff Size: Adult) Pulse 63 Temp 36.6 ??C (97.9 ??F) (Temporal) Resp 16 Physical Exam HENT: Head: Atraumatic. Cardiovascular: Rate and Rhythm: Normal rate. Pulmonary: Effort: Pulmonary effort is normal. Abdominal: General: Abdomen is flat. Palpations: Abdomen is soft. Musculoskeletal: Cervical back: Neck supple. Neurological: Mental Status: She is alert and oriented to person, place, and time. Outside ultrasound and the CT abdomen was reviewed. Confirmed mild gallbladder thickening with gallstone. Component Ref Range & Units (hover) 6 yr ago Protime 13.9 Comment: ALL RESULTS MUST BE INTERPRETED WITH RESPECT TO BLOOD DRAWING ARTIFACT OR DILUTION ERROR OF ANTICOAGULANT AT THE TIME OF SAMPLING. INR 1.07 Comment: [facility] RECOMMENDED INR FOR [facility] H[facility] scan of the gallbladder, gallbladder ejection fraction 17%. Assessment/Plan Chronic cholecystitis, cholelithiasis Robotic cholecystectomy was offered to the patient, informed consent was obtained. Hold Plavix 5 days before the surgery but okay to continue aspirin. No diagnosis found. No orders of the defined types were placed in this encounter. No results found for this or any previous visit (from the past 36 hours). No follow-ups on file. documented in this encounter Miscellaneous Notes * Addendum Note - Alexandrea Clifford MA - 08/11/2025 1:30 PM ESTAddended by: ALEXANDREA CLIFFORD on: 08/13/2025 10:01 AM Modules accepted: Orders documented in this encounter Plan of Treatment DateTypeDepartmentCare Team (Latest Contact Info)Zrwxhgsavtb31/15/2025 10:00 AM ESTHospital Encounter [facility] Main Operating Room [address] [place] [phone] Patricio Maria MD [address] [facility] [address] 08/24/2025 10:00 AM EST - 08/24/2025 12:30 PM ESTSurgery [facility] Main Operating Room [address] [place] [phone] Patricio Maria MD [address] [address] ROBOTIC RDVUYKXIGJCXIHU24/23/2025 9:15 AM ESTOffice Visit [facility] Surgery Clinic [address] [place] [address] Patricio Maria MD [address] [address] 10/12/2025 9:00 AM ESTOffice Visit [facility] [address] [place] [address] Elio Youssef MD [address] [place] [address] NameTypePriorityAssociated DiagnosesOrder ScheduleCBC and differentialLabRoutine Calculus of gallbladder with cholecystitis without biliary obstruction, unspecified cholecystitis acuity Expected: 08/11/2025 (Approximate), Expires: 08/11/2026omprehensive metabolic panelLabRoutine Calculus of gallbladder with cholecystitis without biliary obstruction, unspecified cholecystitis acuity Expected: 08/11/2025 (Approximate), Expires: 08/11/2026Protime-INRLabRoutine Calculus of gallbladder with cholecystitis without biliary obstruction, unspecified cholecystitis acuity Expected: 08/11/2025 (Approximate), Expires: 08/11/2026NamePriorityAssociated DiagnosesDate/TimeCHOLECYSTECTOMY, ROBOT-ASSISTED Calculus of gallbladder with cholecystitis without biliary obstruction, unspecified cholecystitis acuity 08/24/2025 10:00 AM ESTdocumented as of this encounter Visit Diagnoses Diagnosis Calculus of gallbladder with cholecystitis without biliary obstruction, unspecified cholecystitis acuity- Primary History of CVA (cerebrovascular accident) Transient ischemic attack (TIA), and cerebral infarction without residual deficits Calculus of gallbladder with cholecystitis without biliary obstruction- Primary Calculus of gallbladder with cholecystitis without biliary obstruction, unspecified cholecystitis acuity documented in this encounter Care Teams Team MemberRelationshipSpecialtyStart DateEnd Date Alvaro Harp MD [address] [facility] [place] [address] [address] [facility]12/14/22documented as of this encounter
--- OUTSIDE RECORDS SUMMARY | 2025-08-12 15:00 | XMS_ITS | Encounter Summary ---
Author Organization [facility] Address [address] [place] [address] Care Team Providers Care Training Technician Name Role Phone Alvaro Harp MD Primary Care Provider [phone] Reason for Visit * ReasonCommentsFollow-upPatient is here today to re-establish care with cardiology a long with surgery clearance for gallbladder at [facility] with Dr. Maria. Patient states she feels good except the gallbladder pain. Patient denie s chest pain, palpitations/racing heart. Patient complains of SOB/SABA with walking or doing just about anything, bilateral leg edema, Dizziness/lightheaded with position changesCongestive Heart FailureCoronary Artery DiseaseHyperlipidemiaShortness of BreathSOB/SABA with walking, or just about anythingDizzinessDizziness/lightheaded with position changesCVA x 2Edema Bilateral leg swellingHypertension Encounter Details DateTypeDepartmentCare Team (Latest Contact Info)Wzcszqoyrtw35/03/2025 3:00 PM ESTOffice Visit [facility] [address] [place] [address] Kyra Soto, FLARE WORKER [address] [place] [address] Pre-op evaluation (Primary Dx); PVC (premature ventricular contraction); Primary hypertension; SABA (dyspnea on exertion); History of cerebrovascular accident (CVA) in adulthood; QT prolongation Social History Tobacco UseTypesPacks/DayYears UsedDateSmoking Tobacco: NeverSmokeless Tobacco: NeverPHQ-2AnswerDate RecordedPatient Health Questionnaire-2 Scpyk83210/12/2024 Humiliation, Afraid, Rape, and Kick questionnaireAnswerDate RecordedWithin the last year, have you been afraid of your partner or ex-partner?No08/11/2025 Emotionally AbusedNot on file08/11/2025Physically AbusedNot on file08/11/2025 Sexually AbusedNot on file08/11/2025CommentsUnknownSex and Gender InformationValueDate RecordedSex Assigned at SkpfuWinfna77/30/2025 3:49 PM EDT Legal QpyVspepw51/29/2022 10:03 PM EDTGender NrugneiiBqiyxk16/30/2025 3:49 PM EDTSexual OrientationHeterosexual or Cwfiskhp63/30/2025 3:49 PM EDTdocumented as of this encounter Last Filed Vital Signs Vital SignReadingTime TakenCommentsBlood Ylehfrpv783/8208/12/2025 3:03 PM EST Yeddq419808/12/2025 3:42 PM ESTper EKGTemperature--Respiratory Rate--Oxygen Ezaaxdmwdb04%08/12/2025 3:03 PM ESTInhaled Oxygen Concentration--Fjhhcf64.9 kg (121 lb)08/12/2025 3:03 PM YNRNhcsta387.6 cm (5' 4 )08/12/2025 3:03 PM ESTBody Mass Index20.7708/12/2025 3:03 PM ESTdocumented in this encounter Progress Notes * Kyra Soto, FLARE WORKER - 08/12/2025 3:00 PM EST Images from the original note were not included. Cardiovascular Medicine [facility] SUBJECTIVE Chief Complaint Patient presents with Follow-up Patient is here today to re-establish care with cardiology a marj with surgery clearance for gallbladder at [facility] with Dr. Maria. Patient states she feels good except the gallbladder pain. Patient denies chest pain, palpitations/racing heart. Patient complains of SOB/SABA with walking or doing just about anything, bilateral leg edema, Dizziness/lightheaded with position changes Congestive Heart Failure Coronary Artery Disease Hyperlipidemia Shortness of Breath SOB/SABA with walking, or just about anything Dizziness Dizziness/lightheaded with position changes CVA x 2 Edema Bilateral leg swelling Hypertension Sheila Mac is a 75 y.o. female here for follow-up. PMHx: HTN, HLD, TIA Patient was initially referred to Cardiology clinic for evaluation of shortness of breath. She had extensive evaluation previously including echocardiogram, stress test, coronary angiography, and right heart catheterization. Work-up was unrevealing, and shortness of breath was thought to be secondary to noncardiac etiology. HPI 08/12/2025 She is pending gallbladder removal surgery. She notes she has had issues with her gallbladder for the past 2 years or so. She has her ongoing shortness of breath with exertion. She notes she could walk half a mile or a flight of stairs without having to stop. She has dizziness with position changes. She has chronic leg swelling - unchanged. She denies c/o CP, orthopnea, PND. BP averaging 120s/80s at home. Problem List[1] Medical History[2] Family History[3] Social History[4] Allergies[5] OBJECTIVE Visit Vitals BP 142/82 (BP Location: Right arm, Patient Position: Sitting) Pulse 92 Comment: per EKG Ht 1.626 m (5' 4 ) Wt 54.9 kg (121 lb) SpO2 99% BMI 20.77 kg/m?? Smoking Status Never BSA 1.57 m?? Medications: Current Medications[6] Physical Exam Vitals reviewed. Constitutional: Appearance: Normal appearance. She is obese. HENT: Head: Normocephalic and atraumatic. Right Ear: External ear normal. Left Ear: External ear normal. Eyes: Extraocular Movements: Extraocular movements intact. Conjunctiva/sclera: Conjunctivae normal. Pupils: Pupils are equal, round, and reactive to light. Neck: Vascular: No carotid bruit. Cardiovascular: Rate and Rhythm: Normal rate and regular rhythm. Pulses: Normal pulses. Heart sounds: Normal heart sounds. Pulmonary: Effort: Pulmonary effort is normal. Breath sounds: Normal breath sounds. Abdominal: General: Bowel sounds are normal. Palpations: Abdomen is soft. Musculoskeletal: Cervical back: Neck supple. Right lower leg: Edema present. Left lower leg: Edema present. Comments: +1 nonpitting BLE edema Skin: General: Skin is warm and dry. Neurological: General: No focal deficit present. Mental Status: She is alert and oriented to person, place, and time. Psychiatric: Mood and Affect: Mood normal. Behavior: Behavior normal. Thought Content: Thought content normal. Judgment: Judgment normal. Labs: No results found for: EXTCMP , BMPR1A , CBCDIF , BNP , LASAP , RED No visits with results within 6 Month(s) from this visit. Latest known visit with results is: [facility] Encounter on 11/20/2018 Component Date Value Auto WBC 11/20/2018 5.55 RBC 11/20/2018 3.97 Hemoglobin 11/20/2018 12.4 Hematocrit 11/20/2018 36.7 MCV 11/20/2018 92.4 MCH 11/20/2018 31.2 MCHC 11/20/2018 33.8 RDW 11/20/2018 12.9 Platelets 11/20/2018 227 nRBC % 11/20/2018 0 03/03/2025 Hgb 12.2, plt 293 Cr 2.12, BUN 32, K 4.2, Na 142, eGFR 23, AST 16, ALT 12 Chol 186, LDL 101, trig 151, HDL 55 07/29/2025 Hgb 11.9, plt 330 Cr 2.29, BUN 42, K 5, Na 142, eGFR 21, AST 18 Testing/Procedures: ECHO 02/15/2024 CONCLUSION: 1. Mild concentric left ventricular hypertrophy with normal systolic function. LVEF is 55%. 2. Normal right ventricular size and systolic function. 3. No significant valvular dysfunction. 4. Normal right-sided pressures. Cardiac cath - cors/RHC 11/20/2018 ASSESSMENT/PLAN: Diagnoses and all orders for this visit: Pre-op evaluation - ECG 12 lead unit performed PVC (premature ventricular contraction) - metoprolol tartrate (Lopressor) 50 mg tablet; Take 1 tablet (50 mg) by mouth two times daily. Primary hypertension SABA (dyspnea on exertion) History of cerebrovascular accident (CVA) in adulthood QT prolongation #PVCs -Frequent PVCs on EKG today -Will increase metoprolol to 50mg BID -ECHO ordered, this can be done after surgery #QT prolongation -Qtc on EKG noted to be 472 -Avoid QT prolonging medications #HTN -She notes her BP is well controlled at home. BP averaging 120s/80s. -Continue metoprolol #Hx CVA -On aspirin/plavix #SABA -Stable, likely pulmonary as she has had extensive cardiac testing including stress test, cardiac cath (RHC/cors), ECHO that has been non-revealing #Cardiac risk stratification -RCRI: 2 points, RCRI Score 5 % Risk of major cardiac event -Cath 2019: normal coronary angiogram -ECHO 02/2024: preserved LVEF -EKG today shows SR, PVCs, nonspecific ST/T wave abnormality -She reports METS >4 -She is at intermediate risk for a cardiovascular complication for a low to intermediate risk procedure. No objections for gallbladder surgery from a cardiac standpoint. -Recommend avoiding QT prolonging medications given her QT prolongation noted on EKG today. -Okay to hold Plavix 5 days prior and resume as soon as cleared by surgeon. If bleeding risk is high, may hold aspirin 5 days prior as well. Follow up in about 3 months (around 11/10/2025). Kyra Soto CNP [facility] Cardiovascular Medicine [1] Patient Active Problem List Diagnosis Chronic pancreatitis (CMS/HCC) Diverticulitis Osteoporosis Arthropathy of thoracic facet joint Atherosclerosis of coronary artery Blood in stool Chronic pain Chronic systolic heart failure (CMS/HCC) Costochondritis Left lumbosacral radiculopathy Spondylolisthesis, lumbar region Degeneration of lumbar intervertebral disc Diabetes mellitus without complication (CMS/HCC) Disorder of autonomic nervous system Duodenal diverticulum GERD (gastroesophageal reflux disease) Hiatal hernia Internal derangement of right knee Irritable bowel syndrome with constipation Myalgia Postmenopausal Primary osteoarthritis of left knee Pure hypercholesterolemia Screening for colon cancer Left shoulder pain Shoulder pain, right Stomach ulcer Thoracic back pain [2] Past Medical History: Diagnosis Date Cholelithiasis Cirrhosis (CMS/HCC) Hyperlipidemia Stroke (CMS/HCC) [3] No family history on file. [4] Social History Tobacco Use Smoking status: Never Smokeless tobacco: Never Substance Use Topics Drug use: Never [5] Allergies Allergen Reactions Dye Swelling IV DYE Iodides Iodinated Contrast Media Morphine Morpholine Analogues Other Nsaids (Non-Steroidal Anti-Inflammatory Drug) Penicillins [6] Current Outpatient Medications: acetaminophen (Tylenol) 500 mg tablet, Take 500 mg by mouth every 6 (six) hours if needed., Disp: ,Rfl: aspirin 81 mg chewable tablet, Chew 81 mg in the morning., Disp: , Rfl: blood pressure test kit-large kit, 1 kit if needed each day (check blood pressure 1-2 hours after morning and evening medications)., Disp: 1 kit, Rfl: 0 clopidogrel (Plavix) 75 mg tablet, Take 75 mg by mouth in the morning., Disp: , Rfl: ondansetron ODT (Zofran-ODT) 4 mg disintegrating tablet, Take 4 mg by mouth if needed., Disp: , Rfl: pantoprazole (ProtoNix) 40 mg EC tablet, Take 40 mg by mouth in the morning and at bedtime., Disp: , Rfl: metoprolol tartrate (Lopressor) 50 mg tablet, Take 1 tablet (50 mg) by mouth two times daily., Disp: 180 tablet, Rfl: 3 sucralfate (Carafate) 1 gram tablet, Take 1 tablet by mouth in the morning, noon, at afternoon, at bedtime,. (Patient not taking: Reported on 08/12/2025), Disp: , Rfl: documented in this encounter Plan of Treatment DateTypeDepartmentCare Team (Latest Contact Info)Vlueztwvuqr23/15/2025 10:00 AM ESTHospital Encounter [facility] Main Operating Room [address] [place] [address] Patricio Maria MD [address] [place] [phone] 08/24/2025 10:00 AM EST - 08/24/2025 12:30 PM ESTSurgery [facility] Main Operating Room [address] [place] [address] Patricio Maria MD [address] [place], [place] [address]andrew [address] [phone] ROBOTIC GVNKGYORHAGJFFZ02/23/2025 9:15 AM ESTOffice Visit [facility] Surgery Clinic [address] [place] [address] Patricio Maria MD [address] [phone] 10/12/2025 9:00 AM ESTOffice Visit [facility] [address] [place] [phone] Elio Youssef MD [address] [place] [phone] NamePriorityAssociated DiagnosesDate/TimeCHOLECYSTECTOMY, ROBOT-ASSISTED Calculus of gallbladder with cholecystitis without biliary obstruction, unspecified cholecystitis acuity 08/24/2025 10:00 AM ESTdocumented as of this encounter Procedures Procedure NamePriorityDate/TimeAssociated DiagnosisCommentsECG 12 LEAD UNIT TTRXHQNDTMyhihqu32/03/2025 3:04 PM EST Pre-op evaluation documented in this encounter Results * ECG 12 lead unit performed (08/12/2025 3:04 PM EST)Specimen (Source)Anatomical Location / LateralityCollection Method / VolumeCollection TimeReceived Time Narrative Authorizing ProviderResult TypeResult StatusMelruben Soto CNPAMG [facility] ORDERABLES Final Result documented in this encounter Visit Diagnoses Diagnosis Pre-op evaluation- Primary PVC (premature ventricular contraction) Other premature beats Primary hypertension Unspecified essential hypertension SABA (dyspnea on exertion) Other dyspnea and respiratory abnormality History of cerebrovascular accident (CVA) in adulthood QT prolongation Calculus of gallbladder with cholecystitis without biliary obstruction, unspecified cholecystitis acuity documented in this encounter Care Teams Team MemberRelationshipSpecialtyStart DateEnd Alvaro Harp MD [address] [facility] [address] [address] PCP - General12/14/22documented as of this encounter
--- OUTSIDE RECORDS SUMMARY | 2025-08-13 13:06 | XMS_ITS | Clinical Summary ---
Author Organization [facility] Address [address] [place] [address] Care Team Providers Care X Ray Inspector Name Role Phone Elio Sesay DO Unavailable [phone] Alvaro Harp MD Primary Care Provider [phone] Allergies Active AllergyReactionsCriticalityNoted DateCommentsIodinated Contrast Media 05/24/20231453Xcwtpccw52/14/1907JczwlzBjafDgf80/04/0673Wjouljnmiyl46/14/2023 Medications MedicationSigDispense QuantityRefillsLast FilledStart DateEnd DateStatus aspirin [...] of multiple pubic rami, right, initial encounter ([facility])Administer 1 spray into one nostril Daily 3.7 [...] knee,Internal derangement of right knee1 mLIJOnce PRN Aoyqtflcx27/18/79105209/27/2024Ended methylPREDNISolone acetate (DEPO-Medrol) injection 40 mg Indications:Effusion of right knee,Internal derangement of right knee40 mgIXOnce PRN Swufewnwe88Ended Active Problems ProblemNoted DateDiagnosed DateInternal derangement of right knee01/09/2024 Primary osteoarthritis of left knee4079Cwubccwlgeoozce88/14/2023 Bodmccsheckdqu94/03/2019Chronic zagetvfurspr54/23/5730Ocykcxkxjdut19/19/2013 Degeneration of lumbar intervertebral disc05/27/2010Pure hypercholesterolemia 03/18/2010GERD (gastroesophageal reflux disease)02/11/2010Disorder of autonomic nervous aghtui2102/11/2010Diabetes mellitus without umttboomolav10/04/2010Chronic systolic heart xhxhbmy0602/11/2010therosclerosis of coronary fxhtjz2702/11/2010 Encounters DateTypeDepartmentCare CaejBnlucndluyb55/18/2025 9:10 AM ESTAncillary Procedure [facility] [address] [place] [phone] 07/28/2025 9:00 AM ESTOffice Visit [facility] [place] [phone] Ronaldo Hernandez PA Acute pain of right knee (Primary Dx); Effusion of right knee; Internal derangement of right knee07/28/2025amboo flowsheet [facility] [address] [place] [phone] Ronaldo Hernandez PA 07/28/2025Travelfrom Last 3 Months Immunizations ImmunizationAdministration DatesNext DueInfluenza, High Dose Seasonal, Preservative Free06/12/2022,06/18/2018,06/14/2016,06/03/2015Influenza, High-dose Seasonal, Quadrivalent, Preservative Free05/30/2022,06/15/2021Influenza, Seasonal, Quadrivalent, Maeiymmeyx74/26/2023Influenza, injectable, quadrivalent, preservative free05/22/2017Influenza, seasonal, yjucbfhzgz44/01/2014Influenza, seasonal, intradermal, preservative free06/30/2013Pneumococcal Conjugate PCV 13 09/10/2014Pneumococcal Polysaccharide JSVM546409/13/20126344RCUG-VnD-6, Unspecified 01/10/2021Zoster, live08/11/2013 Family History Medical HistoryRelationNameCommentsCancerFatherHeart diseaseMotherRelationName StatusCommentsFatherDeceasedMotherDeceasedOtherSpouseAlive Social History Tobacco UseTypesPacks/DayYears UsedDateSmoking Tobacco: Never Tobacco Cessation:Counseling Given: Not Answered Alcohol UseStandard Drinks/WeekCommentsNever0 (1 standard drink = 0.6 oz pure alcohol)CommentsUnknownSex and Gender InformationValueDate RecordedSex Assigned at BirthNot on fileLegal FddMcihje58/01/2023 8:31 PM EDTGender Identity Not on fileSexual OrientationNot on file Last Filed Vital Signs Vital SignReadingTime TakenCommentsBlood Xukikgrt900/8208/11/2024 2:21 PM EST Zoosu192108/11/2024 2:21 PM KGTSabjxrzvgtn44.3 ??C (97.4 ??F)01/09/2024 8:13 AM EDTRespiratory Rate--Oxygen Vivpgmssvr25%08/11/2024 2:21 PM ESTInhaled Oxygen Concentration--Vexnil95.4 kg (120 lb)07/28/2025 9:03 AM JHYKitaot439 cm (5' 3 ) 07/28/2025 9:03 AM ESTBody Mass Index21.26109/27/2024 9:03 AM EST Plan of Treatment DateTypeDepartmentCare Team (Latest Contact Info)Xkkewtvniss63/05/2025 8:00 AM ESTOffice Visit [facility] [address] [place] [address] Ronaldo Hernandez, PA [address] [place] [address] Health MaintenanceDue DateLast DoneCommentsCOVID-19 Vaccine (2024- season) /11/2021, 06/29/2021, 01/10/2021, Additional history exists Pneumococcal Vaccine: 65+ VktkfEnfqyutex75/01/2015, 07/14/2013Colonoscopy Jvdgspujfjts38/16/2021, 05/26/2021, 10/16/2012Colorectal Cancer Screening DiscontinuedInfluenza AtxyhagNqveipiql80/12/2025, 06/19/2024, 06/05/2023, Additional history existsCT ColonographyDiscontinuedFIT-DNADiscontinuedFIT DiscontinuedFOBTDiscontinuedSigmoidoscopyDiscontinued Procedures Procedure NamePriorityDate/TimeAssociated DiagnosisCommentsPR ARTHROCENTESIS ASPIR&/INJ MAJOR JT/BURSA W/O LKYdldcfo48/18/2025 9:25 AM EST Effusion of right knee Internal derangement of right knee XR KNEE 1-2 VIEWS BXWNRWogroat85/18/2025 9:07 AM EST Acute pain of right knee EZSPAZXIDPOZhvsrmr23/06/2013 12:00 PM EST from Last 3 Months or Most Recently Relevant to Health Maintenance Results * [place] ARTHROCENTESIS ASPIR&/INJ MAJOR JT/BURSA W/O US (07/28/2025 [...] StatusRonaldo Hernandez PAIMG XR PROCEDURES Final Result * Colonoscopy (10/16/2012 12:00 PM EST)Anatomical RegionLateralityModality EndoscopySpecimen (Source)Anatomical Location / LateralityCollection Method / VolumeCollection TimeReceived Time10/16/2012 12:00 PM EST Narrative 10/16/2012 12:00 PM EST PERFORMED AT [facility] LOCATION:[id number] Normal Procedure Note CONVERSION, GENERIC - 01/25/2023 PERFORMED AT [facility] LOCATION:[id number] Normal Authorizing ProviderResult TypeResult William Brower MDENDOSCOPY PROCEDURE ORDERABLESFinal Result from Last 3 Months or Most Recently Relevant to Health Maintenance Insurance Care Teams Team MemberRelationshipSpecialtyStart DateEnd Alvaro Harp MD [address] [place] [address] PCP - GeneralFamily Ozmggsyr90/17/25 Elio Sesay DO [address] [facility] [address] [place] [id number] Referring CkromqpkqBgfonaaxr68/4/24
--- OUTSIDE RECORDS SUMMARY | 2025-08-13 13:06 | XMS_ITS | Clinical Summary ---
Author Organization [facility] Address [address] [place] [address] Care Team Providers Care Material Inspector Name Role Phone Alvaro Harp MD Primary Care Provider [phone] Allergies Active AllergyReactionsCriticalityNoted KbuvHgrxkitkQukSpbcqgej46/14/2017 IV DYE Vijhfru58/06/2018Iodinated Contrast Media12/07/20227640Rfwmxwkb11/30/2023Morpholine PrcpkkfxsUgect93/14/2017Nsaids (Non-Steroidal Anti-Inflammatory Drug)12/07/2022 Scowesgjtww79/30/2023 Medications MedicationSigDispense QuantityRefillsLast FilledStart DateEnd DateStatus sucralfate (Carafate) 1 gram tablet Take 1 tablet by mouth in the morning, noon, at afternoon, at bedtime,.Active pantoprazole (ProtoNix) 40 mg EC tablet Take 40 mg by mouth in the morning and at bedtime.Active blood pressure test kit-large kit Indications:Benign hypertensive heart disease with heart failure (CMS/HCC)1 kit if needed each day (check blood pressure 1-2 hours after morning and evening medications). 1 kit 12/15/2022ctive clopidogrel (Plavix) 75 mg tablet Take 75 mg by mouth in the morning.01/28/2024ctive aspirin 81 mg chewable tablet Chew 81 mg in the morning.Active ondansetron ODT (Zofran-ODT) 4 mg disintegrating tablet Take 4 mg by mouth if needed.5Active acetaminophen (Tylenol) 500 mg tablet Take 500 mg by mouth every 6 (six) hours if needed.Active metoprolol tartrate (Lopressor) 50 mg tablet Indications:PVC (premature ventricular contraction)Take 1 tablet (50 mg) by mouth two times daily. 180 tablet 312/03/2025Active rosuvastatin (Crestor) 20 mg tablet Take 20 tablets by mouth in the morning.08/12/2025Discontinued(Med List Cleanup) aspirin 81 mg chewable tablet Chew 81 mg 1 (one) time each day.08/12/2025Discontinued atorvastatin (Lipitor) 20 mg tablet Take 20 mg by mouth in the morning.08/12/2025Discontinued(Med List Cleanup) clopidogrel (Plavix) 75 mg tablet Take by mouth in the morning.08/12/2025Discontinued carvedilol (Coreg) 3.125 mg tablet Indications:Benign hypertensive heart disease with heart failure (CMS/HCC)Take 1 tablet (3.125 mg) by mouth with breakfast and with evening meal. 180 tablet Discontinued(Med List Cleanup) metoprolol tartrate (Lopressor) 25 mg tablet Take 25 mg by mouth two times daily.Discontinued(Reorder) Active Problems ProblemNoted DateDiagnosed DateArthropathy of thoracic facet joint08/12/2025 Blood in stool08/12/2025hronic pain08/12/2025Left lumbosacral radiculopathy 08/12/2025Spondylolisthesis, lumbar mgvspr4008/12/2025Duodenal diverticulum 08/12/2025Hiatal vzwraj7008/12/2025Irritable bowel syndrome with constipation 08/12/20255687Usjkaoy30/03/3518Vtsirmoarcfeva49/03/2025Screening for colon cancer 08/12/2025Left shoulder pain08/12/2025Shoulder pain, right08/12/2025Stomach ulcer08/12/2025Thoracic back pain08/12/2025alculus of gallbladder with cholecystitis without biliary orqrazxtmtk62/02/2025Internal derangement of right knee01/09/2024rimary osteoarthritis of left knee01/09/2024ostochondritis 6734Wgkxtljiylwyio73/03/7543Hivdsxecdhbt16/03/2019Chronic pancreatitis 09/06/2018Degeneration of lumbar intervertebral disc05/27/2010Pure mpmwmyqycnfmfuhuikpd98/09/2010therosclerosis of coronary txljxg9402/11/2010 Chronic systolic heart grwwrhw6702/11/2010Diabetes mellitus without complication 02/11/2010Disorder of autonomic nervous jhwapw3802/11/2010GERD (gastroesophageal reflux disease)02/11/2010 Encounters DateTypeDepartmentCare VhvgMtyknumjlon04/03/2025 3:00 PM ESTOffice Visit [facility] [address] [place] [facility] [place] [phone] Kyra Soto CNP Pre-op evaluation (Primary Dx); PVC (premature ventricular contraction); Primary hypertension; SABA (dyspnea on exertion); History of cerebrovascular accident (CVA) in adulthood; QT ichsklcpipst30/02/2025 1:30 PM ESTConsult [facility] [address] [place] [address] Patricio Maria MD Calculus of gallbladder with cholecystitis without biliary obstruction, unspecified cholecystitis acuity (Primary Dx); History of CVA (cerebrovascular accident)08/05/2025 12:15 AM EST - 08/05/2025 11:59 PM ESTHospital Encounter [facility] Radiology External Films [address] [place] [phone] Discharge Disposition: Home or Self Care ()08/05/2025 12:10 AM EST - 08/05/2025 12:14 AM ESTHospital Encounter [facility] Radiology External Films [address] [place] [phone] Discharge Disposition: Home or Self Care ()08/05/2025 12:05 AM EST - 08/05/2025 12:09 AM ESTHospital Encounter [facility] Radiology External Films [address] [place] [phone] Discharge Disposition: Home or Self Care ()08/05/2025 - 08/05/2025 12:04 AM ESTHospital Encounter [facility] Radiology External Films [address] [place] [phone] Discharge Disposition: Home or Self Care ()from Last 3 Months Immunizations ImmunizationAdministration DatesNext DueCovid (Worldscape) Bivalent Booster =>12 YRS 07/13/2022Influenza, High Dose Seasonal, Preservative Free06/12/2022,06/18/2018, 06/14/2016,06/03/2015Influenza, High-dose Seasonal, Quadrivalent, Preservative Free05/30/2022,06/15/2021Influenza, injectable, quadrivalent, preservative free 05/22/2017Pfizer SARS-CoV-2 Nsogalvyicu09/03/2022,06/29/2021,11/17/2020, 10/12/2020Unspecified Sars-Cov-2 Kqwgvtxrpep15/03/2021 Family History RelationNameStatusCommentsFatherDeceasedMotherDeceased Social History Tobacco UseTypesPacks/DayYears UsedDateSmoking Tobacco: NeverSmokeless Tobacco: Never Tobacco Cessation:Counseling Given: Not Answered PHQ-2AnswerDate RecordedPatient Health Questionnaire-2 Zkapo92410/12/2024 Humiliation, Afraid, Rape, and Kick questionnaireAnswerDate RecordedWithin the last year, have you been afraid of your partner or ex-partner?No08/11/2025 Emotionally AbusedNot on file08/11/2025Physically AbusedNot on file08/11/2025 Sexually AbusedNot on file08/11/2025CommentsUnknownSex and Gender InformationValueDate RecordedSex Assigned at GcwzaWbifjg65/30/2025 3:49 PM EDT Legal FmqCnwutu34/29/2022 10:03 PM EDTGender JipyeccwHdaviy98/30/2025 3:49 PM EDTSexual OrientationHeterosexual or Wngalymo15/30/2025 3:49 PM EDT Last Filed Vital Signs Vital SignReadingTime TakenCommentsBlood Doefyvst337/8208/12/2025 3:03 PM EST Nnmls755408/12/2025 3:42 PM ESTper TTQAettssnbenr98.6 ??C (97.9 ??F)08/11/2025 1:10 PM ESTRespiratory Esib993010/12/2024 1:10 PM ESTOxygen Zkbqowowwk76% 08/12/2025 3:03 PM ESTInhaled Oxygen Concentration--Lyiicp25.9 kg (121 lb) 08/12/2025 3:03 PM UZHOfahpe054.6 cm (5' 4 )08/12/2025 3:03 PM ESTBody Mass Index20.7708/12/2025 3:03 PM EST Plan of Treatment DateTypeDepartmentCare Team (Latest Contact Info)Ukkyufakpop49/15/2025 10:00 AM ESTHospital Encounter [facility] Main Operating Room [address] [place] [phone] Patricio Maria MD [address] [phone] 08/24/2025 10:00 AM EST - 08/24/2025 12:30 PM ESTSurgery [facility] Main Operating Room [address] [place] [address] Patricio Maria MD [address] [phone] ROBOTIC PYGTANZPVEDTRWQ47/23/2025 9:15 AM ESTOffice Visit [facility] Surgery Clinic [address] [place] [phone] Patricio Maria MD [address] [phone] 10/12/2025 9:[address] [facility] [address] [place] [facility] [address] Elio Youssef MD [address] [place] [phone] NamePriorityAssociated DiagnosesDate/TimeCHOLECYSTECTOMY, ROBOT-ASSISTED Calculus of gallbladder with cholecystitis without biliary obstruction, unspecified cholecystitis acuity 08/24/2025 10:00 AM ESTHealth MaintenanceDue DateLast DoneCommentsDiabetes: Hemoglobin A1C1948Medicare Annual Wellness (AWV)1950Diabetes: Retinopathy Cgecigqch30/30/1958Diabetes: Urine Protein Ljwozkegc39/30/1967Zoster Vaccines (1 of 2)COVID-19 Vaccine ( season) , 02/10/2022, 02/10/2022, Additional history exists Depression Rttexpvct07Fall Risk Lhveqrini35 Adult Tlouzua20Pneumococcal Vaccine: 50+ YearsCompleted 09/10/2014, 07/14/20131419HptqraouzpqVqqyvwjijvha88/16/2021, 10/16/2012Colorectal Cancer ScreeningDiscontinuedInfluenza AulsciqIyohymhdi27/12/2025, 06/19/2024, 06/05/2023, Additional history existsCT ColonographyDiscontinuedFIT-DNA DiscontinuedFITDiscontinuedFOBTDiscontinuedHIB VaccinesAged OutNo longer eligible based on patient's age to complete this topicHPV VaccinesAged OutNo longer eligible based on patient's age to complete this topicIPV VaccinesAged OutNo longer eligible based on patient's age to complete this topicMeningococcal B VaccineAged OutNo longer eligible based on patient's age to complete this topicMeningococcal VaccineAged OutNo longer eligible based on patient's age to complete this topicRotavirus VaccinesAged OutNo longer eligible based on patient's age to complete this topicSigmoidoscopyDiscontinued Procedures Procedure NamePriorityDate/TimeAssociated DiagnosisCommentsECG 12 LEAD UNIT FTZTRDFYSSdugqbu53/03/2025 3:04 PM EST Pre-op evaluation CT TRANSFER OF OUTSIDE QLDGFIwsqdpo03/26/2025 12:[address] TRANSFER OF OUTSIDE NJWXDFcsfken69/26/2025 12:10 AM EST US TRANSFER OF OUTSIDE CJEEEEndjwus13/26/2025 12:05 AM EST US TRANSFER OF OUTSIDE ELKULCzhyzms74/26/2025 12:00 AM EST from Last 3 Months Results * ECG 12 lead unit performed (08/12/2025 3:04 PM EST)Specimen (Source)Anatomical Location / LateralityCollection Method / VolumeCollection TimeReceived Time Narrative Authorizing ProviderResult TypeResult Joel Soto [facility] ORDERABLES Final Result * CT transfer of outside films (08/05/2025 12:15 AM EST) Only the most recent of2 resultswithin the time period is included. Specimen (Source)Anatomical Location / LateralityCollection Method / Volume Collection TimeReceived Time Narrative IMAGING - 08/05/2025 12:02 PM EST This order has been auto-finalized and does not contain a result. Authorizing ProviderResult TypeResult Alma Maria MDJ[facility] [place] [facility] PROCEDURES Final ResultPerforming OrganizationAddressCity/State/ZIP CodePhone Number IMAGING * US transfer of outside films (08/05/2025 12:05 AM EST) Only the most recent of2 resultswithin the time period is included. Specimen (Source)Anatomical Location / LateralityCollection Method / Volume Collection TimeReceived Time Narrative IMAGING - 08/05/2025 12:02 PM EST This order has been auto-finalized and does not contain a result. Authorizing ProviderResult TypeResult Alma Maria MDJ[facility] [place] US PROCEDURES Final ResultPerforming OrganizationAddressCity/State/ZIP CodePhone Number IMAGING from Last 3 Months Insurance Care Teams Team MemberRelationshipSpecialtyStart DateEnd Date Alvaro Harp MD [address] [facility] [place] [address] [facility]12/14/22
--- OUTSIDE RECORDS SUMMARY | 2025-08-13 13:06 | XMS_ITS | Clinical Summary ---
Author Organization [facility] tem Address [id number] [address] [place] [address] Care Team Providers Care Chairlift Operator Name Role Phone Alvaro Harp MD Primary Care Provider [phone] Allergies Active AllergyReactionsCriticalityNoted DwqvNwndwtxlDydLomttash02/14/2017 IV DYE Iodinated Contrast MediaAnaphylaxis,Other (See Comments)High12/07/2022Morphine Nausea And Vomiting,Vehwqfcg29/06/2018Morpholine HimogkrbeAwsyfvlh90/14/2017 Nsaids (Non-Steroidal Anti-Inflammatory Drug)GI Ncjrhtdr08/08/2024enicillins ZnzjBsa7903/23/2017 Medications MedicationSigDispense QuantityRefillsLast FilledStart DateEnd DateStatus acetaminophen [...] the morning.03/27/2024ctive Active Problems ProblemNoted DateDiagnosed DateChronic wmzwilhwunir53/23/2017 Encounters DateTypeDepartmentCare NxswQxnudvxnjck40/12/4473Fpucdr62/05/2025Telephone [facility] [address] [place] [address] BashirJenaRANDY 06/23/2025 10:30 AM EDTOffice Visit [facility] [address] [place] [phone] Kaitlin Macdonald, STRAP MACHINE OPERATOR-IMAGING SCHEDULER Incontinence of feces, unspecified fecal incontinence type (Primary Dx); Diverticular stricture (CMS-HCC)06/23/2025Travelfrom Last 3 Months Family History Medical HistoryRelationNameCommentsNo Known ProblemsFatherHeart diseaseMother RelationNameStatusCommentsFatherDeceasedMotherDeceasedSon 1AliveSon 2Alive Social History Tobacco UseTypesPacks/DayYears UsedDateSmoking Tobacco: NeverSmokeless Tobacco: NeverAlcohol UseStandard Drinks/WeekCommentsNo0 (1 standard drink = 0.6 oz pure alcohol)ChildcareAnswerDate KfhrtgptDgooreeoqFcovagp10/12/2019EmploymentAnswer Date YyvyiajiYvvmxfzfioXswhjxy06/12/2019Hunger ScreeningAnswerDate Recorded Within the past 12 months we worried whether our food would run out before we got money to buy more.Never True06/23/2025Within the past 12 months the food we bought just didn't last and we didn't have money to get more.Never True 06/23/2025Purpose - LifeAnswerDate RecordedPurpose and direction in lifeUnknown 1CommentsNoSex and Gender InformationValueDate RecordedSex Assigned at BirthNot on fileLegal NraSbjzdz84/06/2015 12:11 PM EDTGender IdentityNot on fileSexual OrientationNot on file Last Filed Vital Signs Vital SignReadingTime TakenCommentsBlood Bdzwduvs786/8206/23/2025 10:08 AM EDT Tmbqh305306/23/2025 10:08 AM ZVCQhghskovflr76.1 ??C (97 ??F)07/28/2024 7:16 AM EST Respiratory Mkkv5909 9:31 AM ESTOxygen Xsuwhpatpc43%07/28/2024 10:00 AM ESTInhaled Oxygen Concentration--Gkwhzz11.8 kg (118 lb 9.6 oz)06/23/2025 10:08 AM LTOEopjcx570.6 cm (5' 4 )06/23/2025 10:08 AM EDTBody Mass Index20.36 06/23/2025 10:08 AM EDT Plan of Treatment DateTypeDepartmentCare Team (Latest Contact Info)Mdqhwfcplyl25/05/2026 11:00 AM ESTOffice Visit [facility] [address] [place] [address] [address] [place] [phone] [place] [address] [place] [address], [address] [place] [address] Health MaintenanceDue DateLast DoneCommentsDepression Qzvegdsxd63/30/1960Fall Risk Mzndaxfvl72/30/2013Zoster (Shingles) Vaccine (3 of 3), 08/11/2013RSV ( or age 60+ yrs) (1 - 1-dose 75+ series)3COVID- 19 Vaccine ( season)5109/12/2021, 02/10/2022, 06/29/2021, Additional history existsTobacco Dgiijnkbs87DTaP,Tdap and Td Vaccines (2 - Td or Tdap)Influenza VaccineCompleted 06/21/2025, 06/19/2024, 06/05/2023, Additional history exists Medical Devices Not on file Insurance Care Teams Team MemberRelationshipSpecialtyStart DateEnd Date Alvaro Harp MD PCP - General03/15/17
--- OUTSIDE RECORDS SUMMARY | 2025-08-13 13:06 | XMS_ITS | Clinical Summary ---
Author Organization [facility] Address [address], [address] [place] [address] Care Team Providers Care Customer Resource Specialist Name Role Phone Alvaro Harp MD Primary Care Provider [phone] Allergies Active AllergyReactionsCriticalityNoted VjxqOhhycascGkkxtaw95/06/2018Morphine 07/16/20182128Qkqhyhsboda40/06/2018 Medications MedicationSigDispense QuantityRefillsLast FilledStart DateEnd DateStatus gabapentin [...] InformationValueDate RecordedSex Assigned at BirthNot on fileLegal XknJlpxhz72/10/2013 8:58 PM EST Gender IdentityNot on fileSexual OrientationNot on file Last Filed Vital Signs Vital SignReadingTime TakenCommentsBlood Pressure--Pulse--Phmcdleazvt97.4 ??C (97.6 ??F)10/25/2018 2:46 PM ESTRespiratory Rate--Oxygen Saturation--Inhaled Oxygen Concentration--Eqpcbh26.6 kg (160 lb)10/25/2018 2:46 PM TWMJsefme049 cm (5' 3 )10/25/2018 2:46 PM ESTBody Mass Index28.34010/25/2018 2:46 PM EST Plan of Treatment Not on file Insurance Care Teams Team MemberRelationshipSpecialtyStart Date Alvaro Harp MD [address] [place] [address] PCP - GeneralFamily Uqjlcrll71/17/18
--- OUTSIDE RECORDS SUMMARY | 2025-08-13 13:09 | XMS_ITS | CCD ---
Author Organization [facility] Care Team Providers Care Exerciser Name Role Phone PHYSICIAN, DEFAULT Admitting Unavailable [...] Unavailable HOY ., DR BLANKENSHIP Admitting Unavailable MORLEY, DR GODWIN Cardona Consulting Unavailable HOY ., [...] Provider [phone] Vasyl Chicas MD Attending Provider [phone] Rickie Saucedo MD Attending Provider Vasyl Chicas MD Referring Provider Yael Atwood MD Attending UnavailYael Riggs MD Attending UnavailRickie Feliciano MD Attending Provider [phone] Krzysztof Thompson MD Attending Provider Hoy, Krzysztof [...] of OnsetReaction(s) Facility (17 sources)Morphine; Translations: [MORPHINE]Drug Jdtdifu89-08-5342LbermbzzTmf [facility] Repository (7 sources)NSAIDs; Translations: [NSAIDS (NON-STEROIDAL ANTI-INFLAMMATORY DRUG)] Drug allergy (disorder)98-53-5704RI BleedingThe [facility] (1 source)PenicillinDrug Wavnaft48-93-2327Nit [facility] Repository (1 source)predniSONEDrug Omcpzqr25-41-0199Xxb [facility] Repository (2 sources)Iodinated Contrast- Oral and IV DyeDrug allergy (disorder)11-11-2014 [facility] Repository (20 sources)Penicillins; Translations: [PENICILLINS]Propensity to adverse reactions to drug (disorder)43-22-0588UzlgYsvvflotmuSt. [facility] (20 sources)IODINATED CONTRAST MEDIA; Translations: [IODINATED CONTRAST MEDIA] Propensity to adverse reactions to drug (disorder)41-50-9632Setpercvwrh, Other (See Comments)[facility] Repository (1 source)levoFLOXacinDrug Epfjaly92-62-0067Chh [facility] Repository (1 source)meloxicamDrug Xqeymsu87-54-4614Daw [facility] Repository (12 sources)NSAIDS (Non-Steroidal Anti-Inflamma; Translations: [NSAIDS (Non- Steroidal Anti-Inflamma]Propensity to adverse cqosjcgau03-59-4022RroksjtClermont County HospitalComment on above:pt has stomach ulcer (20 sources)MorphineDrug Kcsfqkr86-92-2195Kaajuv And Vomiting, VomitingNOMS Healthcare (10 sources)Non-steroidal anti-inflammatory agentPropensity to adverse reactions 59-24-5624Alju, GI BleedingNOMS Healthcare (9 sources)Contrast media; Translations: [DYE]Propensity to adverse reactions to drug (disorder)44-23-7040EqxadgswXhvZcpjjh Repository (9 sources)MORPHOLINE ANALOGUES; Translations: [MORPHOLINE ANALOGUES]Propensity to adverse reactions to drug (disorder)12-65-6954LmztepncSswOfntnb Repository (3 sources)Non-steroidal anti-inflammatory agentPropensity to adverse reactions to tajq81-16-3927LG [facility]eding[facility] (1 source)MorphineDrug Nruzkpy67-45-5629GazdjrdfqMercy [facility] Medications Current Medications MedicationDrug Class(es)DatesSig (Normalized)Sig (Original)acetaminophen 500 mg oral tablet (20 sources)take 1 tablet by mouth every six hours as needed for pain acetaminophen (TYLENOL) 500 mg tablet Take 1 tablet (500 mg total) by mouth every 6 (six) hours as needed for pain. Activeaspirin 81 mg delayed release oral tablet (20 sources)Platelet Aggregation Inhibitor, Nonsteroidal Anti-inflammatory Drug Start: 38-22-9615qgdg 1 tablet by mouth in the morningaspirin 81 mg Take 1 tablet (81 mg total) by mouth in the morning. 02/19/2024 Activeclopidogrel 75 mg oral tablet (20 sources)P2Y12 Platelet InhibitorStart: 82-47-7165psxp 1 tablet by mouth in the morningclopidogreL (PLAVIX) 75 mg tablet Take 1 tablet (75 mg total) by mouth in the morning. 01/28/2024 UfttumJarnthxndbr-Obvrisats-Txpsmxoc (8 sources)Start: 85-62-2289Dyrhtpinpxc-Umeclidin-Vilanter (Trelegy Ellipta) 200-62.5-25 mcg blister with device Active 1 INH INHALATION Daily February 19, 2025 12:00am Complies with drug therapyStart: 20-21-9328qentvwskng 100 mg oral capsule (2 sources)Anti-epileptic AgentStart: 08-11-2024 End: 09-52-3052sqjr 1 capsule by mouth in the morninggabapentin (Neurontin) 100 MG capsule Indications: Left hand pain Take 1 capsule (100 mg) by mouth in the morning and 1 capsule (100 mg) before bedtime. 60 capsule 2 08/11/2024 11/09/2024 Activemetoprolol tartrate 50 mg oral tablet (20 sources)beta-Adrenergic BlockerStart: 35-20-9594qzem 1 tablet by mouth in the morningmetoprolol tartrate (LOPRESSOR) 50 mg tablet Take 1 tablet (50 mg total) by mouth in the morning. 03/27/2024 ActiveStart: 62-02-0951imamrysnmb tartrate (Lopressor) 25 MG tablet 03/27/2024 Activepantoprazole 40 mg delayed release oral tablet (20 sources)Proton Pump InhibitorStart: 01-28-2024 End: 81-38-7862oykavo calcitonin 200 unt/actuat nasal spray (16 sources)CalcitoninStart: 06-17-2024 End: 34-36-4597smio 1 spray(s) nasal route in the morningcalcitonin, salmon, (MIACALCIN) 200 unit/actuation nasal spray Administer 1 spray into alternating n ostrils in the morning. 07/15/2024 08/14/2024 Activesucralfate 1000 mg oral tablet (20 sources)Aluminum ComplexStart: 10-53-6636ccbn 1 tablet by mouth four times dailysucralfate (Carafate) 1 g tablet TAKE 1 TABLET BY MOUTH ON AN EMPTY STOMACH FOUR TIMES DAILY 03/18/2024 ActiveStart: 03-51-3545xhqp 1 tablet by mouth twice dailyStart: 01-28-2024 End: 38-21-2901jmpz 1 tablet by mouth four times dailySucralfate 1 gram tablet Discontinued 1 GM PO Four times daily January 28, 2024 12:00am February 19, 2024 9:15amtiZANidine 2 mg oral capsule (8 sources)Central alpha-2 Adrenergic AgonistStart: 53-08-5223vyxt 1 capsule by mouth twice daily as needed Completed/Discontinued Medications MedicationDrug Class(es)DatesSig (Normalized)Sig (Original)atorvastatin 20 mg oral tablet (20 sources)HMG-CoA Reductase InhibitorStart: 01-28-2024 End: 67-72-4010hxhs 1 tablet by mouth once daily at bedtimeAtorvastatin 20 mg tablet Discontinued 20 MG PO Daily at bedtime January 28, 2024 12:00am February 19, 2025 2:58pm End: 13-41-8120ghiz 1 tablet by mouth in the morningatorvastatin (LIPITOR) 40 mg tablet Take 1 tablet (40 mg total) by mouth in the morning. 12/25/2024 Discontinued (Discontinued by another clinician)cetirizine hydrochloride 10 mg oral tablet (11 sources)Histamine-1 Receptor AntagonistStart: 01-28-2024 End: 75-47-7837injt 1 tablet by mouth once daily in the morningCetirizine 10 mg tablet Discontinued 10 MG PO Every morning January 28, 2024 12:00am February 19, 2024 9:13am1 ml denosumab 60 mg/ml prefilled syringe (1 source)RANK Ligand Inhibitor End: 24-91-7681spqcks 60 mg by subcutaneous injection oncedenosumab (PROLIA) 60 mg/mL syringe injection Inject 60 mg under the skin once. 07/16/2024 Discontin ued (Discontinued by another clinician)lactulose 667 mg/ml oral solution (20 sources)Osmotic LaxativeStart: 02-19-2024 End: 35-82-1625sybe 1 mL by mouth twice dailyLactulose 10 gram/15 mL solution Discontinued 30 ML PO Twice daily 1800 30 February 19, 2024 9:26am August 12, 2024 12:13pmStart: 01-28-2024 End: 96-92-0581ixkf 1 mL by mouth once daily in the morningLactulose 10 gram/15 mL solution Discontinued 15 ML PO Every morning January 28, 2024 12:00am February 9:15amlidocaine 0.05 mg/mg medicated patch (1 source)Antiarrhythmic, Amide Local AnestheticStart: 06-13-2024 End: 28-71-0808ghubl 1 dose transdermal route once daily, then apply 1 dose transdermal route every twelve hourslidocaine (LIDODERM) 5 % Indications: Left hip pain Place 1 patch on the skin daily. Remove & Discard patch within 12 hours or as directed by 30 patch 06/13/2024 07/16/2024 Discontinued (Patient Never Started This Medication)linaclotide 0.145 mg oral capsule (16 sources)Guanylate Cyclase-C AgonistStart: 08-13-2024 End: 95-26-4947stdy 1 capsule by mouth once dailyLinaclotide (Linzess) 145 mcg capsule Discontinued 145 MCG PO Daily August 13, 2024 1:00amJun2024 2:58pmStart: 08-12-2024 End: 80-14-2851tzsn 1 capsule by mouth once dailyLinaclotide (Linzess) 72 mcg capsule Discontinued 72 MCG PO Daily August 12, 2024 1:00am August 13, 2024 5:40pmrosuvastatin calcium 20 mg oral tablet (1 source)HMG-CoA Reductase Inhibitor End: 34-06-4140eqyb 1 tablet by mouth in the morningrosuvastatin (CRESTOR) 20 mg tablet Take 1 tablet (20 mg total) by mouth in the morning. 07/16/2024 Discontinued (Discontinued by another clinician)Sod Picosulf-Mag Ox-Citric Ac (10 sources)Start: 02-19-2024 End: 17-77-7280tezu 1 dose by mouth once daily in the eveningSod Picosulf-Mag Ox-Citric Ac (Clenpiq) 10 mg-3.5 gram- 12 gram/175 mL solution Discontinued 175 MLPO Daily 175 February 19, 2024 12:00am August 12, 2024 12:12pm take first dose at 3:00 pm the day before colonoscopy, take second dose at 9:00 pm the day before colonoscopy.Start: 22-14-0000ajaw 1 dose by mouth once daily in [...] abdominal pain; Translations: [GENERALIZED ABDOMINAL PAIN] Onset: 09-74-6988EtgwawpfBtmwm and unspecified renal failure (1 source)Acute kidney failure, unspecified; Translations: [ACUTE KIDNEY FAILURE UNSPECIFIED]Onset: 30-69-3007MpihktnrXymat cerebrovascular disease (3 sources)Cerebral infarction, unspecified; Translations: [Cerebral infarction due to unspecified occlusion or stenosis of left carotid arteries]Onset: 09-54-9051MpqsvipZkjkiypa reactions (1 source)Radiographic dye allergy status; Translations: [RADIOGRAPHIC DYE ALLERGY STATUS]Onset: 14-65-3335TknwxjueVpyzfklu of urinary tract (1 source)Personal history of urinary calculi; Translations: [PERSONAL HISTORY OF URINARY CALCULI]Onset: 08-39-9610MgtsemhmAuwljvk kidney disease (1 source)Chronic kidney disease, unspecified; Translations: [CHRONIC KIDNEY DISEASE UNSPECIFIED]Onset: 38-62-3612ZkexvkaHfmvzgr obstructive pulmonary disease and bronchiectasis (4 sources)Chronic obstructive pulmonary disease, unspecified; Translations: [COPD UNSPECIFIED]Onset: 09-17-6942FlfwmpgZclogvvziv heart failure; nonhypertensive (20 sources)Unspecified diastolic (congestive) heart failure; Translations: [Acute combined systolic (congestive) and diastolic (congestive) heart failure] Onset: 72-57-5644IsjatkuPguiwbhe atherosclerosis and other heart disease (15 sources)Coronary atherosclerosis; Translations: [Atherosclerotic heart disease of [place] coronary artery without angina pectoris]Onset: 02-11-2010 52-71-0615GpzvfcdOqvmucmgdg and other anemia (1 source)Anemia, unspecified; Translations: [ANEMIA UNSPECIFIED]Onset: 65-68-0664SxxwuumpZmtjxqhouk and other anemia (1 source)Iron deficiency anemia, unspecified; Translations: [IRON DEFICIENCY ANEMIA UNSPECIFIED]Onset: 85-56-8142TekebghhHuzrxbhc mellitus without complication (16 sources)Type 2 diabetes mellitus without complications; Translations: [Diabetes mellitus without complication]Onset: 178776-74-7081Pvueonj Diabetes mellitus without complication (2 sources)Prediabetes; Translations: [Other abnormal glucose]Onset: 11-14-2022 EpisodicDisorders of lipid metabolism (17 sources)Pure hypercholesterolemia, unspecified; Translations: [Hyperlipidemia, unspecified]Onset: 451442-13-2942HqiboucRzvzginpuybchy and diverticulitis (20 sources)Diverticulum of duodenum; Translations: [Diverticulosis of small intestine without perforation or abscess without bleeding]Onset: 09-12-2018 08-35-4054VbnxodeHusmacarzv disorders (20 sources)Gastro-esophageal reflux disease without esophagitis; Translations: [Gastroesophageal reflux disease]Onset: 032687-43-3209DnsnjjaPagwfcllt hypertension (6 sources)Essential (primary) hypertension; Translations: [ESSENTIAL (PRIMARY) HYPERTENSION]Onset: 85-48-9789PkchduqCfdxe and electrolyte disorders (2 sources)Dehydration; Translations: [Hyperkalemia]Onset: 32-35-1840Bijywxva Gastroduodenal ulcer (except hemorrhage) (6 sources)Gastric ulcer; Translations: [Gastric ulcer, unspecified as acute or chronic, without hemorrhage orperforation]01-14-6200CkjeuqwCswtfmliokkuk symptoms and ill-defined conditions (1 source)Personal history of urinary (tract) infections; Translations: [PERS HX URINARY TRACT INFECTIONS]Onset: 59-12-7197CyuxlsfoBlsyi valve disorders (1 source)Rheumatic tricuspid insufficiency; Translations: [RHEUMATIC TRICUSPID INSUFFICIENCY]Onset: 52-71-6571WuxscbqDfymfcjymoeu with complications and secondary hypertension (5 sources)Hypertensive heart disease with heart failure; Translations: [Hypertensive chronic kidney disease with stage 1 through stage 4 chronic kidney disease, or unspecified chronic kidney disease]Onset: 56-64-1444Mslbeyc Intestinal obstruction without hernia (3 sources)Stricture of intestine; Translations: [Other intestinal obstruction unspecified as to partial versus complete obstruction]Onset: 06-23-2025 06-97-9561BsiciyrqRmvbx disorders and dislocations; trauma-related (15 sources)Derangement of right knee; Translations: [Unspecified internal derangement of right knee]Onset: 231591-57-9722QzfiixxPlizqzo and fatigue (1 source)Chronic fatigue, unspecified; Translations: [CHRONIC FATIGUE UNSPECIFIED]Onset: 41-58-5458RkkabuxJpsfnvc and fatigue (4 sources)Other fatigue; Translations: [OTHER FATIGUE]Onset: 96-86-8955Zzjtwjou Nonspecific chest pain (5 sources)Chest pain, unspecified; Translations: [CHEST PAIN UNSPECIFIED]Onset: 19-35-5727YkmrpuoyEcrbclkiltu deficiencies (1 source)Vitamin D deficiency, unspecified; Translations: [VITAMIN D DEFICIENCY UNSPECIFIED]Onset: 09-08-3520JzwooldVmcsbykgh or stenosis of precerebral arteries (5 sources)Occlusion and stenosis of unspecified carotid artery; Translations: [Occlusion and stenosis of bilateral carotid arteries]Onset: 94-30-8862Teqjqgd Osteoarthritis (18 sources)Unspecified osteoarthritis, unspecified site; Translations: [Osteoarthritis of left knee joint]Onset: hronic Osteoporosis (20 sources)Age-related osteoporosis without current pathological fracture; Translations: [Osteoporosis]Onset: 670320-05-2903EbiaifpEijqi acquired deformities (20 sources)Lumbar spondylolisthesis; Translations: [Spondylolisthesis, lumbar region]19-20-2788WwlqcxqpIvgzz aftercare (2 sources)prison (current) use of aspirin; Translations: [FPC (CURRENT) USE OF ASPIRIN]Onset: 98-24-2293YijfpqezAwvft aftercare (1 source)Other roasterman (current) drug therapy; Translations: [OTH PRIME BROKER CURRENT DRUG THERAPY]Onset: 83-96-3264EwikufjfNwoto circulatory disease (1 source)Personal history of transient ischemic attack (TIA), and cerebral infarction without residual deficits; Translations: [PERS HX TIA AND CI NO RESID DEFICIT]Onset: 34-07-4043PhkxwdmjLsogq connective tissue disease (4 sources)Pain in left foot; Translations: [PAIN IN LEFT FOOT]Onset: 01-15-2023 EpisodicOther connective tissue disease (1 source)Other specified soft tissue disorders; Translations: [OTHER SPEC SOFT TISSUE DISORDERS]Onset: 12-65-5402UsxrongkHmghg connective tissue disease (1 source)Fibromyalgia; Translations: [FIBROMYALGIA]Onset: 56-87-1361Eqwwpmsp Other connective tissue disease (2 sources)Pain of left hand; Translations: [Pain in left hand]08-11-2024 EpisodicOther connective tissue disease (20 sources)Muscle pain; Translations: [Myalgia, unspecified site]03-11-2025 EpisodicOther fractures (4 sources)Fracture of multiple pubic rami; Translations: [Other specified fracture of right pubis, initial encounter for closed fracture]06-17-2024 EpisodicOther gastrointestinal disorders (10 sources)Irritable bowel syndrome; Translations: [Irritable bowel syndrome without diarrhea]35-39-0743EalgyvcYjmpe gastrointestinal disorders (2 sources)Irritable bowel syndrome without diarrhea; Translations: [Irritable bowel syndrome]73-48-0639AukcoweBpfwh gastrointestinal disorders (8 sources)Irritable bowel syndrome characterized by constipation; Translations: [Irritable bowel syndrome with constipation]57-27-6490QzyzmxfZuwed gastrointestinal disorders (2 sources)Incontinence of feces; Translations: [Full incontinence of feces] 69-10-9054YpozcwvrRjobv gastrointestinal disorders (1 source)Full incontinence of feces; Translations: [Full incontinence of feces] Onset: 14-92-8285ItwlkqywAvlhr gastrointestinal disorders (1 source)EncopresisOnset: 87-17-4316QlmpeatiKcmtr hematologic conditions (4 sources)Other specified abnormalities of plasma proteins; Translations: [OTH SPEC ABNORM PLASMA PROTEINS]Onset: 28-92-4177UpgksziaOdyzw hereditary and degenerative nervous system conditions (1 source)Restless legs syndrome; Translations: [RESTLESS LEGS SYNDROME]Onset: 37-88-6851TdeiusxAiuls lower respiratory disease (6 sources)Shortness of breath; Translations: [SHORTNESS OF BREATH]Onset: 88-38-6794XmkmezxsFxgaj lower respiratory disease (3 sources)Dyspnea, unspecified; Translations: [Dyspnea, unspecified]Onset: 48-12-3092GchznjxiCjxdw lower respiratory disease (1 source)Personal history of pneumonia (recurrent); Translations: [PERSONAL HX OF PNEUMONIA RECURRENT]Onset: 30-45-4253MupuhslqQuwnu nervous system disorders (3 sources)Aphasia; Translations: [APHASIA]Onset: 31-72-7171ZxjesmkXwmkm nervous system disorders (15 sources)Disorder of autonomic nervous system; Translations: [Disorder of the autonomic nervous system, unspecified]Onset: 384596-48-0598JycbeaiVtpbj nervous system disorders (20 sources)Chronic pain; Translations: [Other chronic pain]12-39-2434Xcnaewi Other nervous system disorders (1 source)Ataxia, unspecified; Translations: [ATAXIA UNSPECIFIED]Onset: 59-50-8196IisikyeySsxmu nervous system disorders (3 sources)Paresthesia; Translations: [Paresthesia of skin]91-28-8289Xqynxzaw Other non-traumatic joint disorders (1 source)Pain in left ankle and joints of left foot; Translations: [PAIN IN LEFT ANKLE]Onset: 39-19-9102XufmqcysVpihi non-traumatic joint disorders (7 sources)Hip pain; Translations: [Pain in right hip]Onset: 06-13-2024 95-05-5941DrznyxvkFltun non-traumatic joint disorders (1 source)Pain in left hip; Translations: [Pain in left hip]Onset: 06-13-2024 EpisodicOther non-traumatic joint disorders (13 sources)Pain in right shoulder; Translations: [Right shoulder pain]Onset: 718066-85-1802AzjpuwrzGqzyk screening for suspected conditions (not mental disorders or infectious disease) (18 sources)Abnormal result of other cardiovascular function study; Translations: [Other specified abnormal findings of blood chemistry]Onset: 204631-11-1773TcslsqjsPptgw skin disorders (4 sources)Nonscarring hair loss, unspecified; Translations: [NONSCARRING HAIR LOSS UNSPECIFIED]Onset: 16-08-2946XuojsrdpGykhd upper respiratory infections (1 source)Acute sinusitis, unspecified; Translations: [ACUTE SINUSITIS UNSPECIFIED]Onset: 30-21-6983VbmuqhmiHkldyhopwd disorders (not diabetes) (20 sources)Other chronic pancreatitis; Translations: [Chronic pancreatitis] Onset: 660665-00-6666MkmllxhChkmahssdhsq fracture (4 sources)Stress fracture of sacrum; Translations: [Pathological fracture, other site, initial encounter for fracture]35-30-1798DaenlhkyNobwtdnz codes; unclassified (1 source)Acquired absence of both cervix and uterus; Translations: [ACQUIRED ABSENCE BOTH CERVIX AND UTERUS]Onset: 80-53-0661ItaujyolSuudboqs codes; unclassified (1 source)Personal history of other specified conditions; Translations: [PERSONAL HISTORY OTH SPEC CONDITION]Onset: 95-08-3293BlhbfjmtXrwqklee codes; unclassified (5 sources)Edema, unspecified; Translations: [EDEMA UNSPECIFIED]Onset: 88-71-5656FdzmcetrNubnwkew codes; unclassified (6 sources)Postmenopausal state; Translations: [Asymptomatic menopausal state] 57-09-8603VkcvnufsFpnufzgbvfn; intervertebral disc disorders; other back problems (20 sources)Degeneration of lumbar intervertebral disc; Translations: [Degeneration of lumbar intervertebral disc]Onset: hronic Spondylosis; intervertebral disc disorders; other back problems (20 sources)Cervical radiculopathy; Translations: [Radiculopathy, cervical region]Onset: 113081-53-7366XqhqjinlUyvibnfgqryu (2 sources)ABN STRESSOnset: 82-33-3644Bsjpsfacyrzx (1 source)CHRN KIDNEY DISEASE STG 3 UNSP; Translations: [CHRN KIDNEY DISEASE STG 3 UNSP]Onset: 18-72-7922Ymiglbjvmcma (1 source)CONTACT W/AND (SUSP) EXPOS COVID-19; Translations: [CONTACT W/AND (SUSP) EXPOS COVID-19]Onset: 33-24-8096Fefldqcaplpa (1 source)COUGH, UNSPECIFIED; Translations: [COUGH, UNSPECIFIED]Onset: 37-28-2280Skkxxzmoqrjg (1 source)PERSONAL HISTORY OF COVID-19; Translations: [PERSONAL HISTORY OF COVID-19]Onset: 99-40-4400Mpkcxggrzjle (1 source)PAIN RT HIPOnset: 06-13-9814Mijpuuwfmeuc (1 source)M54.6 - Pain in thoracic spineUnclassified (4 sources)R93.7 - Abnormal findings on diagnostic imaging of other parts of musculoskeletal systemViral infection (1 source)COVID-19; Translations: [COVID-19]Onset: 09-30-2022 Past or Other Problems Problem ClassificationProblemDateDocumented DateEpisodic/ChronicAbdominal hernia (16 sources)Diaphragmatic hernia without obstruction or gangrene; Translations: [Hiatal hernia]Onset: 222515-53-2585VowmtscpSdodjbjbhveexo ulcer (except hemorrhage) (2 sources)H/O: gastric ulcer; Translations: [Personal history of peptic ulcer disease]Onset: 553521-26-8870TxijasjfJuyvgfhrdxooszoh hemorrhage (10 sources)Gastrointestinal hemorrhage; Translations: [Hemorrhage of anus and rectum]Onset: 518570-88-4145QxreheksEwqfze and vomiting (2 sources)Vomiting; Translations: [Vomiting, unspecified]Onset: 07-16-2024 16-94-8383CkezksdhLnplm bone disease and musculoskeletal deformities (15 sources)Costal chondritis; Translations: [Chondrocostal junction syndrome [Tietze]]Onset: 675077-56-1120JnkncqriNzere gastrointestinal disorders (4 sources)Constipation, unspecified; Translations: [CONSTIPATION UNSPECIFIED] Onset: 20-66-8966JscorsdzAwfez gastrointestinal disorders (1 source)Dysphagia; Translations: [Dysphagia, unspecified]70-36-9562Pyuleiac Other gastrointestinal disorders (1 source)Dysphagia, unspecified; Translations: [Dysphagia, unspecified]Onset: 42-84-1909OxxledbtCinto gastrointestinal disorders (1 source)HeartburnOnset: 65-31-2297DuuaqvmbRqsqj nervous system disorders (4 sources)Dysarthria and anarthria; Translations: [DYSARTHRIA AND ANARTHRIA] Onset: 80-02-1450Gwqowaow Results Test NameValueInterpretationReference RangeFacilityUrine Cultureon 05-13-2025 Bacteria identified Cx Nom (U)ORGANISM: Escherichia coli (O:ESCCOL) Carney Count 75,000 Aerobic RAIZA Charge (NMIC56) SUSCEPTIBILITY [...] RESISTANT TO ALL B-LACTAM DRUGS. PERFORMED BY: [facility] [address] [place] [address] PATHOLOGIST DIGITAL MARKETING OFFICER ARMINDA JUAN M.D.[facility] Physician GroupComment on above: Performed By: #### CUU #### [facility] [address] [place] [address] USAX-ray reportOrdered By: Elian Luna on 58-68-1520Zggnl reportCLEVEL[facility]IN[facility] [address] [place] [address] XRay Report Signed Patient: Sheila Mac MR#: [id number] : 1950 Acct:[id number] Age/Sex: 74 / F ADM Date: 5 Loc: [facility] Room: Type: [facility] Attending Dr: Rickie [...] 6:13 PM Dictation Location: RADIO-PC-20 Transcribed By: [facility] 04/02/251812 Dictated By: Elian Luna DO 04/02/251811 Signed By: 04/02/251812 [facility] HospitalXR shoulder RT min 2V*on 87-97-8908GH shoulder RT min 2V*[facility] [address] [place] [address] XRay Report Signed Patient: Sheila Mac MR#: [id number] : 1950 Acct:[id number] Age/Sex: 74 / F ADM Date: 04/02/25 [...] 6:13 PM Dictation Location: RADIO-PC-20 Transcribed By: [facility] 04/02/251812 Dictated By: Elian Luna DO 04/02/251811 Signed By: 04/02/[address] [place] [address] Physician GroupX-ray reportOrdered By: Ling Fields on 53-61-5330Sknpx reportCLEVELAND CLIN[facility] [address] [place] [address] XRay Report Signed Patient: Sheila Mac MR#: [id number] : 1950 Acct:[id number] Age/Sex: 74 / F ADM Date: 5 Loc: [facility] Room: Type: REG CLI Attending Dr: Rickie [...] Fields M.D. 03/11/2025 12:01 PM Dictation Location: [place] [address] Transcribed By: [facility] 03/11/25 1201 Dictated By: Ling Fields MD 03/11/25 1158 Signed By: 03/11/25 1201 [facility] Work Phone: XR thoracic spine 2Von 83-37-8860QP thoracic spine 2V [facility] [facility] [address] [place] [place] [address] XRay Report Signed Patient: Sheila Mac MR#: [id number] 1859 : 1950 Acct:[id number] Age/Sex: 74 / F ADM Date: 03/11/25 Loc: [facility] Room: Type: [facility] Attending Dr: Rickie [...] Fields M.D. 03/11/2025 12:01 PM Dictation Location: [facility] Transcribed By: [facility] 03/11/25 1201 Dictated By: Ling Fields MD 03/11/25 1158 Signed By: 03/11/25 1201[facility] Physician GroupXR cerv spine AP/LAT/FLX/EXTon 50-63-7653FB cerv spine AP/LAT/FLX/EXTCLEVELAND [facility] Main [place] [address] [place] [address] XRay Report Signed Patient: Sheila Mac MR#: [id number] 18[birth year] : 1950 Acct:[id number] Age/Sex: 74 / F ADM Date: 02/26/25 Loc: [place] Room: Type: [facility] Attending Dr: Vasyl Chicas MD Copies to: [...] Luna M.D. 02/26/2025 12:52 PM Dictation Location: [facility]23 Transcribed By: LAVON 02/26/25 1252 Dictated By: Elian Luna DO 02/26/25 1249 Signed By: 02/26/25 1252[facility] Physician GroupXR lumbar spine 6V w bendingon 87-64-0388QO lumbar spine 6V w bendingCLEVELAND CLIN[facility] Main [place] [address] [place] [address] XRay Report Signed Patient: Sheila Mac MR#: [id number] 18[birth year] : 1950 Acct:[id number] Age/Sex: 74 / F ADM Date: 02/26/25 Loc: [place] Room: Type: [facility] Attending Dr: Vasyl Chicas MD Copies to: [...] Luna M.D. 02/26/2025 2:14 PM Dictation Location: [place] [address] Transcribed By: LAVON 02/26/25 1414 Dictated By: Elian Luna DO 02/26/25 1411 Signed By: 02/26/25 1414[facility] Physician GroupSurgical Pathologyon 07-28-2024 Surgical PathologyNormalOhioHealth Arthur G.H. Bing, MD, Cancer Centerca [facility] Davis Medical CenterComment on above:Result Comment: [facility] [address] [place] [address] Surgical Pathology Consultation Patient Name:SHEILA MAC ADOB:1950 (Age: 74)Gender:FTaken:07/28/2024eported:07/31/2024hysician(s):Nidia White MD ([phone])Copy To: Rec. #:[id number]: #[id number] Final Pathologic Diagnosis 1. Duodenum biopsy first portion: Duodenal mucosa with no significant histopathologic changes. No active inflammation, celiac disease, parasites, granuloma or atypia. 2. Antrum biopsy: Gastric antral mucosa with no significant histopathologic changes. No intestinal metaplasia or dysplasia. No Helicobacter pylori organisms are seen on routine sections. Report Electronically Signed Out wak/07/31/2024Rodriguez Vargas MD [place] [address], License number: [id number]. Clinical History Vomiting, gastroesophageal reflux, dysphagia Gross Description 1. Received in formalin labeled ASLINGER, #1: Duodenum is a single hathaway bit of soft tissue, 0.2 cmin greatest dimension. Filtered and submitted in a single cassette. (1, ns, [id number], m7) MG 2. Received in formalin labeled ASLINGER, #2: Antrum is a single hathaway bit of soft tissue, 0.3 cm in greatest dimension. Filtered and submitted in a single cassette. (1, ns, [id number], m7) MG [facility]/07/28/2024GR Specimen(s) Received 1: Duodenum biopsy first portion 2: Antrum biopsy Fee Codes(s): 1; 79712 2; 46068BCP 1 Extremeityon 31-52-6143D2 radiculopathy on the left, moderateMercy Hospital Washington HealthcareNVC 5-6 Nerveson 58-73-4005E5 radiculopathy on the left, moderateMercy Hospital Washington HealthcareXR HIP LT 2-3 VIEWS W OR WO PELVISon 17-42-4533WV HIP LT 2-3 VIEWS W OR WO [...] by Rod Muller MD on 06/13/2024 10:24 [facility] HealthXR SPINE LUMBAR 2 OR 3 VWSon 31-63-1048HK SPINE LUMBAR 2 OR 3 VWSXR SPINE [...] by Rickie Gonzales MD on 06/13/2024 10:20 [facility] HealthMR HIP RIGHT WO IV CONTRASTon 55-98-8780IO HIP RIGHT WO IV CONTRASTEXAM: MR HIP [...] x-rays of the right hip Hemal Sheth D.O.[facility] HealthcareRadiology Study observation (narrative)[facility] HealthcareColonoscopyOrdered By: Kera George on 03-26-2024 [facility] CenterUS AYESHA DOP LEG LTon 81-19-9493IF AYESHA DOP LEG LT EXAMINATION: US AYESHA [...] Electronically authenticated by: DANIEL PINEDA Date: 2023-01-15 08:25[facility] OhioXR ANKLE LT MIN 3 Von 37-02-2532CT ANKLE LT MIN 3 VEXAM: XR FOOT [...] Electronically authenticated by: GONZALEZ PATEL Date: 2023-01-15 07:[address] [place], [place] [address]VITAMIN B1 (THIAMINE)on 56-65-4210Hjv. B1, Whole Yugbu679.1 nmol/HJntyum40.5-200.0The [facility] HospitalComment on above:Performed By: #### CBC #### [facility] [address] [place] [address] Dr. Ekta Vaughan 93-57-0519Ggtzcejocln peptide B (Bld) [Mass/Vol]980.0 pg/mL Critically high<=900.0The [facility] HospitalComment on above:Performed By: #### CVDTBH #### [facility] [address] [place] [address] Dr. Ekta Agarwal AUTO DIFFon 50-86-2213COXJ #0.1 103/ulNormal0.0-0.1[facility] HospitalComment on above:Performed By: #### CMP #### [facility] [address] [place] [address] Dr. Ekta FunkBasophils/100 WBC (Bld)1.0 %Normal0.2-2.0The [facility] Comment on above:Performed By: #### CMP #### [facility] [address] [place] [address] Dr. Ekta Anthony #0.4 103/ulNormal0.0-0.7The [facility] Memorial HospitalComment on above: Performed By: #### CMP #### [facility] [address] [place] [address] Dr. Ekta Abebeosinophils/100 WBC (Bld)3.7 %Normal0.9-7.0[facility] Comment on above:Performed By: #### CMP #### [facility] [address] [place] [address] Dr. Ekta Abeberythrocyte distribution width (RBC) [Ratio]13.2 %Qkuefl20.0-15.0 [facility] HospitalComment on above:Performed By: #### CMP #### [facility] [address] [place] [address] Dr. Ekta FunkHematocrit (Bld) [Volume fraction]35.1 %Critically low36.0-48.0 [facility] HospitalComment on above:Performed By: #### CMP #### [facility] [address] [place] [address] Dr. Ekta FunkHemoglobin (Bld) [Mass/Vol]11.3 g/dLCritically low12.0-16.0The [facility] HospitalComment on above:Performed By: #### CMP #### [facility] [address] [place] [address] Dr. Ekta Olivares #0.04 10e3/ulCritically high0.00-0.03The [facility] Comment on above:Performed By: #### CMP #### [facility] [address] [place] [address] Dr. Ekta Olivares %0.4 %Normal0.0-0.5ThBerger HospitalComment on above: Performed By: #### CMP #### [facility] [address] [place] [address] Dr. Ekta LundbergH #2.0 103/ulNormal1.2-3.8The [facility] HospitalComment on above:Performed By: #### CMP #### [facility] [address] [place] [address] Dr. Ekta Nettlesmphocytes/100 WBC (Bld)20.8 %Frigsz67.5-60.0The [facility] HospitalComment on above:Performed By: #### CMP #### [facility] [address] [place] [address] Dr. Ekta Beckham DIFF REQNONormalThe [facility] Memorial HospitalComment on above: Performed By: #### CMP #### [facility] [address] [place] [address] Dr. Ekta Oconnor (RBC) [Entitic mass]32.3 idLkitjo42.7-34.0The Haworth HospitalComment on above:Performed By: #### CMP #### [facility] [address] [place] [address] Dr. Ekta Oconnor (RBC) [Mass/Vol]32.2 g/qLKbcchs09.9-35.2The [facility] HospitalComment on above:Performed By: #### CMP #### [facility] [address] [place] [address] Dr. Ekta Estevez (RBC) [Entitic vol]100.3 fLCritically high81.0-99.0The [facility] HospitalComment on above:Performed By: #### CMP #### [facility] [address] [place] [address] Dr. Ekta Rivas #0.8 103/ulNormal0.3-0.8The [facility] HospitalComment on above:Performed By: #### CMP #### [facility] [address] [place] [address] Dr. Ekta Perkinsocytes/100 WBC (Bld)7.9 %Normal1.7-12.0The [facility] Comment on above:Performed By: #### CMP #### [facility] [address] [place] [address] Dr. Ekta Salazar #6.4 103/ulNormal1.4-6.5The [facility] HospitalComment on above:Performed By: #### CMP #### [facility] [address] [place] [address] Dr. Ekta Dimasutrophils/100 WBC (Bld)66.2 %Epefqp77.0-75.0The [facility] HospitalComment on above:Performed By: #### CMP #### [facility] [address] [place] [address] Dr. Ekta Trevino mean volume (Bld) [Entitic vol]9.6 fLNormal9.5-13.5The [facility] HospitalComment on above:Performed By: #### CMP #### [facility] [address] [place] [address] Dr. Ekta DriverT255 103/hmRtkufy733-016Sdp [facility] HospitalComment on above: Performed By: #### CMP #### [facility] [address] [place] [address] Dr. Ekta FunkRBC3.50 106/ulCritically low4.20-5.40The [facility] HospitalComment on above:Performed By: #### CMP #### [facility] [address] [place] [address] Dr. Ekta FunkWBC9.7 103/ulNormal4.0-11.0The [facility] HospitalComment on above: Performed By: #### CMP #### [facility] [address] [place] [address] Dr. Ekta Castaneda 12-38-0615BJE [Mass/Vol]mg/LNormal<=1.0The [facility] HospitalComment on above:Performed By: #### CBC #### [facility] [address] [place] [address] Dr. Ekta Correa THYROXINE INDEX T7on 67-77-2003UHR4.09Dwoehz8.30-4.50The [facility] HospitalComment on above:Performed By: #### CBC #### [facility] [address] [place] [address] Dr. Ekta FunkT3U32.0 %Gbeybv25.0-39.0The [facility] HospitalComment on above: Performed By: #### CBC #### [facility] [address] [place] [address] Dr. Ekta FunkT4 [Mass/Vol]8.20 ug/dLNormal4.80-13.90The [facility] Comment on above:Performed By: #### CBC #### [facility] [address] [place] [address] Dr. Ekta Shannon 12-04-4412Qxiw [Mass/Vol]61.0 ug/qFSildnc30.0-170.0The [facility] HospitalComment on above:Performed By: #### B12FOL, VITAD, IRON #### [facility] [address] [address] [address] Ekta CarrilloF 14(COMP METB)on 24-97-2156Sdnwerz [Mass/Vol]2.9 g/dL Critically low3.4-5.0The [facility] HospitalComment on above:Performed By: #### CVDTBH #### [facility] [address] [address] [address] Ekta FunkAlbumin/Globulin [Mass ratio]0.6 {ratio}NormalThe [facility] Memorial HospitalComment on above:Performed By: #### CVDTBH #### [facility] [address] [address] [address] Ekta Cowart [Catalytic activity/Vol]101 U/VPmfzru20-314Fwi [facility] HospitalComment on above:Performed By: #### CVDTBH #### [facility] [address] [address] [address] Ekta Mccormick [Catalytic activity/Vol]16 U/QYizmdm14-13Gvo [facility] HospitalComment on above:Performed By: #### CVDTBH #### [facility] [address] [address] [address] Ekta Harrison gap [Moles/Vol]14.6 mmol/LNormalThe [facility] Comment on above:Performed By: #### CVDTBH #### [facility] [address] [address] [address] Ekta Gonzalez [Catalytic activity/Vol]15 U/YAcimlz67-67Zkd [facility] HospitalComment on above:Performed By: #### CVDTBH #### [facility] [address] [address] [address] Ekta FunkBilirubin [Mass/Vol]0.4 mg/dLNormal0.2-1.0The [facility] Comment on above:Performed By: #### CVDTBH #### [facility] [address] [address] [address] Ekta FunkCalcium [Mass/Vol]9.2 mg/dLNormal8.5-10.1The [facility] Comment on above:Performed By: #### CVDTBH #### [facility] [address] [address] [address] Ekta FunkChloride [Moles/Vol]107 mmol/DPzipse57-797Ciy [facility] Comment on above:Performed By: #### CVDTBH #### [facility] [address] [place] [address] Dr. Ekta FunkCO2 [Moles/Vol]24.4 mmol/LVmaeeb25.0-32.0The [facility] Comment on above:Performed By: #### CVDTBH #### [facility] [address] [place] [address] Dr. Ekta FunkCreatinine [Mass/Vol]2.02 mg/dLCritically high0.55-1.02The [facility] HospitalComment on above:Performed By: #### CVDTBH #### [facility] [address] [place] [address] Dr. Ekta AbebeGFR-AF TRNIVEGE37 mL/min/1.43w7Imzkstctnb low>=60The [facility] HospitalComment on above:Performed By: #### CVDTBH #### [facility] [address] [address] [address] Ekta Ro-NON AF YDCVSVPI55 mL/min/1.04t2Rkbidyqnsa low>=60The [facility] HospitalComment on above:Performed By: #### CVDTBH #### [facility] [address] [place] [address] Dr. Ekta FunkGlobulin (S) [Mass/Vol]4.5 g/dLNormalThe [facility] HospitalComment on above:Performed By: #### CVDTBH #### [facility] [address] [place] [address] Dr. Ekta FunkGlucose [Mass/Vol]103 mg/sYPiltjy90-312LcqGuernsey Memorial Hospital Comment on above:Performed By: #### CVDTBH #### [facility] [address] [place] [address] Dr. Ekta FunkPotassium [Moles/Vol]5.0 mmol/LNormal3.5-5.1The [facility] Comment on above:Performed By: #### CVDTBH #### [facility] [address] [place] [address] Dr. Ekta FunkProtein [Mass/Vol]7.4 g/dLNormal6.4-8.2The [facility] Comment on above:Performed By: #### CVDTBH #### [facility] [address] [place] [address] Dr. Ekta Nolandium [Moles/Vol]141 mmol/SInnlsk516-855MvwGuernsey Memorial Hospital Comment on above:Performed By: #### CVDTBH #### [facility] [address] [place] [address] Dr. Ekta FunkUrea nitrogen [Mass/Vol]23.0 mg/dLCritically high7.0-18.0The [facility] HospitalComment on above:Performed By: #### CVDTBH #### [facility] [address] [place] [address] Dr. Ekta Spring nitrogen/Creatinine [Mass ratio]11.4 mg/mgNormalThe [facility] HospitalComment on above:Performed By: #### CVDTBH #### [facility] [address] [place] [address] Dr. Ekta DoanHorama 54-53-8669HCD2.793 uIU/mLNormal0.358-3.740[facility] HospitalComment on above:Performed By: #### CVDTBH #### [facility] [address] [place] [address] Dr. Ekta Lopez B12 AND FOLATEon 69-42-0996Smjwgysnt (Vitamin B12) [Mass/Vol] 175.0 pg/mLCritically kqj913.0-986.0The [facility] HospitalComment on above: Performed By: #### B12FOL, VITAD, IRON #### [facility] [address] [place] [address] Dr. Ekta FunkFOLATE10.30 ng/mLNormal8.60-58.90[facility] HospitalComment on above:Performed By: #### B12FOL, VITAD, IRON #### [facility] [address] [place] [address] Dr. Ekta FunkVITAMIN D 25 OHon 05-64-9804CXD D 25-OH24.0 ng/mLNormalGuernsey Memorial HospitalComment on above:Performed By: #### B12FOL, VITAD, IRON #### [facility] [address] [place] [address] Dr. Ekta Lopez D [place] [facility] SouthComment on above: Result Comment: <20 ng/mL Vit D deficient 20 - <30 ng/mL Vit D insufficient 30 - 100 ng/mL Vit D sufficient >100 ng/mL Potential ToxicityPerformed By: #### B12FOL, VITAD, IRON #### [facility] [address] [place] [address] Dr. Ekta Hope Visiton 60-43-6473Dfcvyk-up [id number] Sheila Mac 1950 F Date Provider Department Center 12/15/2022 3848-FAWNJASONRODRIGUEZ MOHAN [facility] No family history on file Level of Service:33157 ME OFFICE/OUTPATIENT ESTABLISHED MOD MDM 30-39 MIN Reason for Visit and Comments: Follow-up [286778] - Is here f/u stress test pt states she had Bruises all over both legs symptoms stated a week ago also stated legs are swollen and burningNormalUniversity of Texas Children'[facility] Hospital The WoodlandsNM STRESS/REST MULTIon 40-82-1789VM STRESS/REST MULTIPatient: SHEILA MAC Exam Date: 12/05/2022 : 1950 Gender:F Ordering : DR KRZYSZTOF THOMPSON . Admission #: [id number] Family : Order #: [id number] CLICK HERE TO VIEW EXAM RADIOLOGY REPORT [...] by: Daniel Pineda M.D. on 12/06/2022 at 07:26[facility] OhioECHOCARDIO M/2D COMPLETEon 92-86-2000ITRERDVDCY M/2D COMPLETEPatient: SHEILA MAC Exam Date: 11/27/2022 : 1950 Gender:F Ordering : DR KRZYSZTOF THOMPSON . Admission #: [id number] Family : Order #: [id number] CLICK HERE TO VIEW EXAM ECHOCARDIOGRAM REPORT [...] by: Bong Gaspar M.D. on 11/27/2022 at 14:39NormalThSelect Medical Specialty Hospital [facility] AUTO DIFFon 69-43-2639KEIL #0.0 103/ulNormal0.0-0.1[facility] HospitalComment on above:Performed By: #### INSULIN #### [facility] [address] [place] [address] Dr. Ekta Thorntonsophils/100 WBC (Bld)0.6 %Normal0.2-2.0[facility] Comment on above:Performed By: #### INSULIN #### [facility] [address] [place] [address] Dr. Ekta Anthony #0.3 103/ulNormal0.0-0.7The [facility] HospitalComment on above: Performed By: #### INSULIN #### [facility] [address] [place] [address] Dr. Ekta Abebeosinophils/100 WBC (Bld)4.8 %Normal0.9-7.0[facility] Comment on above:Performed By: #### INSULIN #### [facility] [address] [place] [address] Dr. Ekta Abeberythrocyte distribution width (RBC) [Ratio]13.3 %Hzvwmw22.0-15.0 [facility] HospitalComment on above:Performed By: #### INSULIN #### [facility] [address] [place] [address] Dr. Ekta FunkHematocrit (Bld) [Volume fraction]29.1 %Critically low36.0-48.0 The [facility] HospitalComment on above:Performed By: #### INSULIN #### [facility] [address] [place] [address] Dr. Ekta FunkHemoglobin (Bld) [Mass/Vol]9.5 g/dLCritically low12.0-16.0The [facility] HospitalComment on above:Performed By: #### INSULIN #### [facility] [address] [place] [address] Dr. Ekta FunkIG #0.07 10e3/ulCritically high0.00-0.03The [facility] Comment on above:Performed By: #### INSULIN #### [facility] [address] [place] [address] Dr. Ekta FunkIG %1.0 %Critically high0.0-0.5The [facility] HospitalComment on above:Performed By: #### INSULIN #### [facility] [address] [place] [address] Dr. Ekta LundbergH #1.2 103/ulNormal1.2-3.8The [facility] HospitalComment on above:Performed By: #### INSULIN #### [facility] [address] [place] [address] Dr. Ekta Nettlesmphocytes/100 WBC (Bld)17.2 %Critically low20.5-60.0[facility] HospitalComment on above:Performed By: #### INSULIN #### [facility] [address] [place] [address] Dr. Ekta MaloneUAL DIFF REQNONormalThe [facility] HospitalComment on above: Performed By: #### INSULIN #### [facility] [address] [place] [address] Dr. Ekta Oconnor (RBC) [Entitic mass]31.7 udScezby83.7-34.0The [facility] HospitalComment on above:Performed By: #### INSULIN #### [facility] [address] [place] [address] Dr. Ekta Oconnor (RBC) [Mass/Vol]32.6 g/tTJpaiew82.9-35.2The [facility] HospitalComment on above:Performed By: #### INSULIN #### [facility] [address] [place] [address] Dr. Ekta Oconnor (RBC) [Entitic vol]97.0 sFGirxvc98.0-99.0The [facility] HospitalComment on above:Performed By: #### INSULIN #### [facility] [address] [place] [address] Dr. Ekta Rivas #0.8 103/ulNormal0.3-0.8The [facility] HospitalComment on above:Performed By: #### INSULIN #### [facility] [address] [address] [address] Ekta Perkinsocytes/100 WBC (Bld)11.1 %Normal1.7-12.0The [facility] Comment on above:Performed By: #### INSULIN #### [facility] [address] [place] [address] Dr. Ekta DimasUT #4.5 103/ulNormal1.4-6.5The [facility] HospitalComment on above:Performed By: #### INSULIN #### [facility] [address] [place] [address] Dr. Ekta Dimasutrophils/100 WBC (Bld)65.3 %Kmcpgb45.0-75.0The [facility] HospitalComment on above:Performed By: #### INSULIN #### [facility] [address] [place] [address] Dr. Etka Salomonlet mean volume (Bld) [Entitic vol]9.4 fLCritically low 9.5-13.5The [facility] HospitalComment on above:Performed By: #### INSULIN #### [facility] [address] [address] [address] Ekta FunkPLT263 103/hzQdbkyz485-041Cox [facility] HospitalComment on above: Performed By: #### INSULIN #### [facility] [address] [address] [address] Ekta FunkRBC3.00 106/ulCritically low4.20-5.40The [facility] HospitalComment on above:Performed By: #### INSULIN #### [facility] [address] [place] [address] Dr. Ekta FunkWBC6.9 103/ulNormal4.0-11.0The [facility] HospitalComment on above: Performed By: #### INSULIN #### [facility] [address] [place] [address] Dr. Ekta CarrilloF 14(COMP METB)on 05-32-1213Cqcmjio [Mass/Vol]2.2 g/dL Critically low3.4-5.0The [facility] HospitalComment on above:Performed By: #### CMP #### [facility] [address] [place] [address] Dr. Ekta FunkAlbumin/Globulin [Mass ratio]0.6 {ratio}NormalThe [facility] HospitalComment on above:Performed By: #### CMP #### [facility] [address] [place] [address] Dr. Ekta Cowart [Catalytic activity/Vol]82 U/OPvahjx87-996Jhk [facility] HospitalComment on above:Performed By: #### CMP #### [facility] [address] [place] [address] Dr. Ekta Mccormick [Catalytic activity/Vol]13 U/LCritically xgd92-49Uob [facility] HospitalComment on above:Performed By: #### CMP #### [facility] [address] [place] [address] Dr. Ekta Harrison gap [Moles/Vol]14.0 mmol/LNormalThe [facility] on above:Performed By: #### CMP #### [facility] [address] [address] [address] Ekta FunkAST [Catalytic activity/Vol]18 U/LTpmdzt04-41Xff [facility] Hospitalment on above:Performed By: #### CMP #### [facility] [address] [address] [address] Ekta FunkBilirubin [Mass/Vol]0.4 mg/dLNormal0.2-1.0The [facility] Comment on above:Performed By: #### CMP #### [facility] [address] [address] [address] Ekta FunkCalcium [Mass/Vol]8.6 mg/dLNormal8.5-10.1The [facility] Comment on above:Performed By: #### CMP #### [facility] [address] [place] [address] Dr. Ekta FunkChloride [Moles/Vol]108 mmol/LCritically bhtw46-587Gde [facility] HospitalComment on above:Performed By: #### CMP #### [facility] [address] [address] [address] Ekta FunkCO2 [Moles/Vol]19.6 mmol/LCritically low21.0-32.0The [facility] HospitalComment on above:Performed By: #### CMP #### [facility] [address] [place] [address] Dr. Ekta FunkCreatinine [Mass/Vol]1.70 mg/dLCritically high0.55-1.02The [facility] HospitalComment on above:Performed By: #### CMP #### [facility] Laboratory [address] [address] [address] Ekta AbebeGFR-AF VDXUPKOC60 mL/min/1.68u9Dxccljfyso low>=60The [facility] HospitalComment on above:Performed By: #### CMP #### [facility] [address] [address] [address] Ekta AbebeGFR-NON AF RRZEBRFI41 mL/min/1.90j2Uqvsdmtoax low>=60The [facility] HospitalComment on above:Performed By: #### CMP #### [facility] [address] [address] [address] Ekta FunkGlobulin (S) [Mass/Vol]3.6 g/dLNormalThBerger HospitalComment on above:Performed By: #### CMP #### [facility] [address] [address] [address] Ekta FunkGlucose [Mass/Vol]103 mg/kXPvfzuw56-105Mel [facility] Comment on above:Performed By: #### CMP #### [facility] [address] [address] [address] Ekta FunkPotassium [Moles/Vol]4.6 mmol/LNormal3.5-5.1The [facility] Comment on above:Performed By: #### CMP #### [facility] [address] [place] [address] Dr. Ekta FunkProtein [Mass/Vol]5.8 g/dLCritically low6.4-8.2The [facility] HospitalComment on above:Performed By: #### CMP #### [facility] [address] [address] [address] Ekta FunkSodium [Moles/Vol]137 mmol/IUmdxbm892-906XsfGuernsey Memorial Hospital Comment on above:Performed By: #### CMP #### [facility] [address] [address] [address] Ekta FunkUrea nitrogen [Mass/Vol]26.0 mg/dLCritically high7.0-18.0The [facility] HospitalComment on above:Performed By: #### CMP #### [facility] [address] [address] [address] Ekta Spring nitrogen/Creatinine [Mass ratio]15.3 mg/mgNormalThe [facility] HospitalComment on above:Performed By: #### CMP #### [facility] [address] [place] [address] Dr. Ekta CaalC AUTO DIFFon [id number] #0.1 103/ulNormal0.0-0.1The [facility] HospitalComment on above:Performed By: #### CBC #### [facility] [address] [address] [address] Ekta FunkBasophils/100 WBC (Bld)0.7 %Normal0.2-2.0[facility] Comment on above:Performed By: #### CBC #### [facility] [address] [place] [address] Dr. Ekta Anthony #0.3 103/ulNormal0.0-0.7The [facility] HospitalComment on above: Performed By: #### CBC #### [facility] [address] [place] [address] Dr. Ekta Abebeosinophils/100 WBC (Bld)3.4 %Normal0.9-7.0[facility] Comment on above:Performed By: #### CBC #### [facility] [address] [place] [address] Dr. Ekta Abeberythrocyte distribution width (RBC) [Ratio]13.6 %Fqvzfr23.0-15.0 [facility] HospitalComment on above:Performed By: #### CBC #### [facility] [address] [place] [address] Dr. Ekta FunkHematocrit (Bld) [Volume fraction]32.1 %Critically low36.0-48.0 The [facility] HospitalComment on above:Performed By: #### CBC #### [facility] [address] [place] [address] Dr. Ekta FunkHemoglobin (Bld) [Mass/Vol]10.3 g/dLCritically low12.0-16.0[facility] HospitalComment on above:Performed By: #### CBC #### [facility] [address] [place] [address] Dr. Ekta Olivares #0.08 10e3/ulCritically high0.00-0.03[facility] Comment on above:Performed By: #### CBC #### [facility] [address] [place] [address] Dr. Ekta Olivares %0.9 %Critically high0.0-0.5The [facility] HospitalComment on above:Performed By: #### CBC #### [facility] [address] [place] [address] Dr. Ekta Putnam #0.9 103/ulCritically low1.2-3.8The [facility] Comment on above:Performed By: #### CBC #### [facility] [address] [place] [address] Dr. Ekta Lundberghocytes/100 WBC (Bld)10.7 %Critically low20.5-60.0The [facility] HospitalComment on above:Performed By: #### CBC #### [facility] [address] [place] [address] Dr. Ekta Beckham DIFF REQNONormalThe [facility] HospitalComment on above: Performed By: #### CBC #### [facility] [address] [place] [address] Dr. Ekta Frye (RBC) [Entitic mass]32.2 qsXshibg47.7-34.0[facility] HospitalComment on above:Performed By: #### CBC #### [facility] [address] [place] [address] Dr. Ekta Oconnor (RBC) [Mass/Vol]32.1 g/zOFdfvdq41.9-35.2The [facility] HospitalComment on above:Performed By: #### CBC #### [facility] [address] [place] [address] Dr. Ekta Estevez (RBC) [Entitic vol]100.3 fLCritically high81.0-99.0[facility] HospitalComment on above:Performed By: #### CBC #### [facility] [address] [place] [address] Dr. Ekta Rivas #0.9 103/ulCritically high0.3-0.8The [facility] Comment on above:Performed By: #### CBC #### [facility] [address] [place] [address] Dr. Yilan ChangMonocytes/100 WBC (Bld)9.9 %Normal1.7-12.0The [facility] Comment on above:Performed By: #### CBC #### [facility] [address] [place] [address] Dr. Ekta Salazar #6.4 103/ulNormal1.4-6.5The [facility] HospitalComment on above:Performed By: #### CBC #### [facility] [address] [place] [address] Dr. Ekta Dimasutrophils/100 WBC (Bld)74.4 %Qkzkrq82.0-75.0The [facility] HospitalComment on above:Performed By: #### CBC #### [facility] [address] [place] [address] Dr. Ekta Salomonlet mean volume (Bld) [Entitic vol]9.5 fLNormal9.5-13.5The [facility] HospitalComment on above:Performed By: #### CBC #### [facility] [address] [place] [address] Dr. Ekta DriverT267 103/zrAaytse260-698Dbq [facility] HospitalComment on above: Performed By: #### CBC #### [facility] [address] [place] [address] Dr. Ekta FunkRBC3.20 106/ulCritically low4.20-5.40The [facility] HospitalComment on above:Performed By: #### CBC #### [facility] [address] [place] [address] Dr. Ekta FunkWBC8.6 103/ulNormal4.0-11.0The [facility] HospitalComment on above: Performed By: #### CBC #### [facility] [address] [place] [address] Dr. Ekta ThorntonSO #0.1 103/ulNormal0.0-0.1The [facility] HospitalComment on above:Performed By: #### CMP #### [facility] [address] [place] [address] Dr. Ekta Thorntonsophils/100 WBC (Bld)0.7 %Normal0.2-2.0The [facility] Comment on above:Performed By: #### CMP #### [facility] [address] [place] [address] Dr. Ekta Anthony #0.3 103/ulNormal0.0-0.7The [facility] HospitalComment on above: Performed By: #### CMP #### [facility] [address] [place] [address] Dr. Ekta Abebeosinophils/100 WBC (Bld)3.9 %Normal0.9-7.0The [facility] Comment on above:Performed By: #### CMP #### [facility] [address] [place] [address] Dr. Ekta Abeberythrocyte distribution width (RBC) [Ratio]13.2 %Nnoglt37.0-15.0 [facility] HospitalComment on above:Performed By: #### CMP #### [facility] [address] [place] [address] Dr. Ekta FunkHematocrit (Bld) [Volume fraction]28.0 %Critically low36.0-48.0 [facility] HospitalComment on above:Performed By: #### CMP #### [facility] [address] [place] [address] Dr. Ekta FunkHemoglobin (Bld) [Mass/Vol]9.3 g/dLCritically low12.0-16.0The [facility] HospitalComment on above:Performed By: #### CMP #### [facility] [address] [place] [address] Dr. Ekta Olivares #0.08 10e3/ulCritically high0.00-0.03The [facility] Comment on above:Performed By: #### CMP #### [facility] [address] [place] [address] Dr. Ekta Olivares %1.1 %Critically high0.0-0.5The [facility] HospitalComment on above:Performed By: #### CMP #### [facility] [address] [place] [address] Dr. Ekta Putnam #0.9 103/ulCritically low1.2-3.8The [facility] Comment on above:Performed By: #### CMP #### [facility] [address] [place] [address] Dr. Ekta Lundberghocytes/100 WBC (Bld)12.1 %Critically low20.5-60.0The [facility] HospitalComment on above:Performed By: #### CMP #### [facility] [address] [place] [address] Dr. Ekta Beckham DIFF REQNONormalThe [facility] HospitalComment on above: Performed By: #### CMP #### [facility] [address] [place] [address] Dr. Ekta Oconnor (RBC) [Entitic mass]32.0 hmJnxgta16.7-34.0The [facility] HospitalComment on above:Performed By: #### CMP #### [facility] [address] [place] [address] Dr. Ekta Oconnor (RBC) [Mass/Vol]33.2 g/jTPpkofc30.9-35.2The [facility] HospitalComment on above:Performed By: #### CMP #### [facility] [address] [place] [address] Dr. Ekta Oconnor (RBC) [Entitic vol]96.2 dJJklrbr95.0-99.0The [facility] HospitalComment on above:Performed By: #### CMP #### [facility] [address] [place] [address] Dr. Ekta Rivas #0.7 103/ulNormal0.3-0.8The [facility] HospitalComment on above:Performed By: #### CMP #### [facility] [address] [place] [address] Dr. Ekta Perkinsocytes/100 WBC (Bld)9.8 %Normal1.7-12.0The [facility] Comment on above:Performed By: #### CMP #### [facility] [address] [place] [address] Dr. Ekta DimasUT #5.2 103/ulNormal1.4-6.5The [facility] HospitalComment on above:Performed By: #### CMP #### [facility] [address] [place] [address] Dr. Ekta Dimasutrophils/100 WBC (Bld)72.4 %Zqkanh45.0-75.0The [facility] HospitalComment on above:Performed By: #### CMP #### [facility] [address] [place] [address] Dr. Ekta FunkPlatelet mean volume (Bld) [Entitic vol]9.4 fLCritically low 9.5-13.5The [facility] HospitalCommymichigan medical center on above:Performed By: #### CMP #### [facility] [address] [place] [address] Dr. Ekta FunkPLT250 103/ejHyxftq466-313[facility] on above: Performed By: #### CMP #### [facility] [address] [place] [address] Dr. Ekta FunkRBC2.91 106/ulCritically low4.20-5.40The [facility] on above:Performed By: #### CMP #### [facility] [address] [place] [address] Dr. Ekta FunkWBC7.2 103/ulNormal4.0-11.0The [facility] HospitalCommymichigan medical center on above: Performed By: #### CMP #### [facility] [address] [place] [address] Dr. Ekta FunkPROF 14(COMP METB)on [id number] [Mass/Vol]2.1 g/dL Critically low3.4-5.0The [facility] on above:Performed By: #### CMP #### [facility] [address] [place] [address] Dr. Ekta FunkAlbumin/Globulin [Mass ratio]0.6 {ratio}NormalThe [facility] HospitalCommymichigan medical center on above:Performed By: #### CMP #### [facility] [address] [address] [address] Ekta Cowart [Catalytic activity/Vol]68 U/VOmyibj66-245Pcn [facility] HospitalComment on above:Performed By: #### CMP #### [facility] [address] [address] [address] Ekta AlcantaraT [Catalytic activity/Vol]14 U/MQbtgwb47-95Rag [facility] HospitalComment on above:Performed By: #### CMP #### [facility] [address] [address] [address] Ekta Mcleodon gap [Moles/Vol]12.9 mmol/LNormalThe [facility] Comment on above:Performed By: #### CMP #### [facility] [address] [place] [address] Dr. Ekta FunkAST [Catalytic activity/Vol]14 U/LCritically gbn71-22Dij [facility] HospitalComment on above:Performed By: #### CMP #### [facility] [address] [place] [address] Dr. Ekta FunkBilirubin [Mass/Vol]0.3 mg/dLNormal0.2-1.0The [facility] Comment on above:Performed By: #### CMP #### [facility] [address] [place] [address] Dr. Ekta FunkCalcium [Mass/Vol]8.3 mg/dLCritically low8.5-10.1The [facility] HospitalComment on above:Performed By: #### CMP #### [facility] [address] [place] [address] Dr. Ekta FunkChloride [Moles/Vol]109 mmol/LCritically jtah14-061Usr [facility] HospitalComment on above:Performed By: #### CMP #### [facility] [address] [address] [address] Ekta FunkCO2 [Moles/Vol]19.3 mmol/LCritically low21.0-32.0The [facility] HospitalComment on above:Performed By: #### CMP #### [facility] [address] [address] [address] Ekta FunkCreatinine [Mass/Vol]1.54 mg/dLCritically high0.55-1.02The [facility] Hospitalment on above:Performed By: #### CMP #### [facility] [address] [address] [address] Dash ChangEGFR-AF ZURJZGHR84 mL/min/1.00j2Ololadzyuq low>=60The [facility] HospitalComment on above:Performed By: #### CMP #### [facility] [address] [address] [address] Ekta AbebeGFR-NON AF KAPLZCVN58 mL/min/1.23k8Fqjrwabkii low>=60The [facility] HospitalComment on above:Performed By: #### CMP #### [facility] [address] [address] [address] Ekta FunkGlobulin (S) [Mass/Vol]3.7 g/dLNormalThe [facility] HospitalComment on above:Performed By: #### CMP #### [facility] [address] [address] [address] Ekta FunkGlucose [Mass/Vol]117 mg/dLCritically tnyf93-111Uft [facility] HospitalComment on above:Performed By: #### CMP #### [facility] [address] [address] [address] Ekta FunkPotassium [Moles/Vol]4.2 mmol/LNormal3.5-5.1The [facility] Comment on above:Performed By: #### CMP #### [facility] [address] [address] [address] Ekta FunkProtein [Mass/Vol]5.8 g/dLCritically low6.4-8.2The [facility] HospitalCommymichigan medical center on above:Performed By: #### CMP #### [facility] [address] [address] [address] Ekta FunkSodium [Moles/Vol]137 mmol/XQiqiun458-515Ogs [facility] Comment on above:Performed By: #### CMP #### [facility] [address] [place] [address] Dr. Ekta Spring nitrogen [Mass/Vol]27.0 mg/dLCritically high7.0-18.0The [facility] HospitalComment on above:Performed By: #### CMP #### [facility] [address] [place] [address] Dr. Ekta Spring nitrogen/Creatinine [Mass ratio]17.5 mg/mgNormalThe [facility] HospitalComment on above:Performed By: #### CMP #### [facility] [address] [place] [address] Dr. Ekta FunkAMMONIAon 68-10-3456Cofktrl (P) [Moles/Vol]13 umol/UHegdyw60-10 The [facility] HospitalComment on above:Performed By: #### CVDTBH #### [facility] [address] [place] [address] Dr. Ekta Agarwal AUTO DIFFon [id number] #0.0 103/ulNormal0.0-0.1The [facility] HospitalComment on above:Performed By: #### CMP #### [facility] [address] [place] [address] Dr. Ekta FunkBasophils/100 WBC (Bld)0.4 %Normal0.2-2.0[facility] Comment on above:Performed By: #### CMP #### [facility] [address] [place] [address] Dr. Ekta Anthony #0.4 103/ulNormal0.0-0.7The [facility] on above: Performed By: #### CMP #### [facility] [address] [place] [address] Dr. Ekta Abebeosinophils/100 WBC (Bld)3.8 %Normal0.9-7.0The [facility] Comment on above:Performed By: #### CMP #### [facility] [address] [place] [address] Dr. Ekta Abeberythrocyte distribution width (RBC) [Ratio]13.2 %Ibikll03.0-15.0 [facility] HospitalComment on above:Performed By: #### CMP #### [facility] [address] [place] [address] Dr. Ekta FunkHematocrit (Bld) [Volume fraction]34.0 %Critically low36.0-48.0 The [facility] HospitalComment on above:Performed By: #### CMP #### [facility] [address] [place] [address] Dr. Ekta FunkHemoglobin (Bld) [Mass/Vol]11.5 g/dLCritically low12.0-16.0The [facility] HospitalComment on above:Performed By: #### CMP #### [facility] [address] [place] [address] Dr. Ekta FunkIG #0.11 10e3/ulCritically high0.00-0.03The [facility] Comment on above:Performed By: #### CMP #### [facility] [address] [place] [address] Dr. Ekta Olivares %1.2 %Critically high0.0-0.5The [facility] HospitalComment on above:Performed By: #### CMP #### [facility] [address] [place] [address] Dr. Ekta Putnam #1.4 103/ulNormal1.2-3.8The [facility] HospitalComment on above:Performed By: #### CMP #### [facility] [address] [place] [address] Dr. Ekta Lundberghocytes/100 WBC (Bld)14.9 %Critically low20.5-60.0[facility] HospitalComment on above:Performed By: #### CMP #### [facility] [address] [place] [address] Dr. Ekta MaloneUAL DIFF REQNONormalThe [facility] HospitalComment on above: Performed By: #### CMP #### [facility] [address] [place] [address] Dr. Ekta Frye (RBC) [Entitic mass]32.5 wfOhboqo51.7-34.0The [facility] HospitalComment on above:Performed By: #### CMP #### [facility] [address] [place] [address] Dr. Ekta Oconnor (RBC) [Mass/Vol]33.8 g/pDSrzlqc76.9-35.2The [facility] HospitalComment on above:Performed By: #### CMP #### [facility] [address] [place] [address] Dr. Ekta Estevez (RBC) [Entitic vol]96.0 yXKjfxat86.0-99.0The [facility] HospitalComment on above:Performed By: #### CMP #### [facility] [address] [place] [address] Dr. Ekta Rivas #0.9 103/ulCritically high0.3-0.8The [facility] Comment on above:Performed By: #### CMP #### [facility] [address] [place] [address] Dr. Ekta Perkinsocytes/100 WBC (Bld)9.7 %Normal1.7-12.0The [facility] Comment on above:Performed By: #### CMP #### [facility] [address] [place] [address] Dr. Ekta Salazar #6.4 103/ulNormal1.4-6.5The [facility] HospitalComment on above:Performed By: #### CMP #### [facility] [address] [place] [address] Dr. Ekta Dimasutrophils/100 WBC (Bld)70.0 %Dfgtvn78.0-75.0The [facility] HospitalComment on above:Performed By: #### CMP #### [facility] [address] [place] [address] Dr. Ekta Trevino mean volume (Bld) [Entitic vol]9.3 fLCritically low 9.5-13.5The [facility] HospitalComment on above:Performed By: #### CMP #### [facility] [address] [place] [address] Dr. Ekta FunkPLT308 103/hvUcfnpp858-698Cgo [facility] HospitalComment on above: Performed By: #### CMP #### [facility] [address] [place] [address] Dr. Ekta FunkRBC3.54 106/ulCritically low4.20-5.40The [facility] HospitalComment on above:Performed By: #### CMP #### [facility] [address] [place] [address] Dr. Ekta FunkWBC9.1 103/ulNormal4.0-11.0The [facility] HospitalComment on above: Performed By: #### CMP #### [facility] [address] [place] [address] Dr. Ekta FunkCPKorama [id number] [Catalytic activity/Vol]21 U/LCritically low 26-192The [facility] HospitalComment on above:Performed By: #### B12FOL, VITAD, IRON #### [facility] [address] [place] [address] Dr. Ekta FunkCT STROKE HEAD WOon [id number] STROKE HEAD WOEXAMINATION: CT STROKE HEAD WO [...] by: VANESSA PARADA Date: 2022-11-24 11:09 NormalThe [facility] HEAD WO W CONon [id number] HEAD WO W CON EXAMINATION: CTA HEAD [...] authenticated by: DANIEL TORRESAYLA Date: 2022-11-24 12:41NormalThe [facility] HospitalCULTURE URINEon [id number] URINECulture Observations: NO GROWTH.NormalThe [facility] HospitalComment on above:Performed By: #### INSULIN #### [facility] [address] [address] [address] Ekta FunkCovid-19 PCR (CVDTB)on [id number]-CoV-2 (COVID-19) RNA GANESH+probe Ql (Unsp spec)Not detectedNormalNOT DETECTEDGuernsey Memorial Hospital Comment on above:Result Comment: When diagnostic [...] for this test is supported by the [place] of [employer] and Human Service's declaration that [...] longer be used).Performed By: #### CVDTBH #### [facility] [address] [place] [address] Dr. Ekta Mckeon URINE PROFILEon [id number] Ql (U)NegativeNormal NEGATIVEThe [facility] HospitalComment on above:Performed By: #### CBC #### [facility] [address] [address] [address] Ekta FunkClarity (U)CLEARNormalCLEARThe [facility] HospitalComment on above: Performed By: #### CBC #### [facility] [address] [address] [address] Ekta Boothe (U)LT. YELLOWNormalYELLOWGuernsey Memorial HospitalComment on above:Performed By: #### CBC #### [facility] [address] [address] [address] Ekta Chan micrscopic examination will be performed if indicated. NormalThe [facility] HospitalComment on above:Performed By: #### CBC #### [facility] [address] [address] [address] Ekta FunkGlucose Ql (U)NegativeNormalNEGATIVEGuernsey Memorial HospitalComment on above:Performed By: #### CBC #### [facility] [address] [place] [address] Dr. Ekta FunkHemoglobin Ql (U)NegativeNormalNEGATIVEAkron [facility] on above:Performed By: #### CBC #### [facility] [address] [address] [address] Ekta FunkKetones Ql (U)NegativeNormalNEGATIVEGuernsey Memorial HospitalComment on above:Performed By: #### CBC #### [facility] [address] [place] [address] Dr. Ekta FunkLEUKOCYTESNegativeNormalNEGATIVEGuernsey Memorial HospitalComment on above:Performed By: #### CBC #### [facility] [address] [address] [address] Ekta FunkNitrite Ql (U)NegativeNormalNEGATIVEGuernsey Memorial HospitalComment on above:Performed By: #### CBC #### [facility] [address] [address] [address] Ekta FunkpH (U)5.5 [pH]Normal5-9[facility] HospitalComment on above: Performed By: #### CBC #### [facility] [address] [place] [address] Dr. Ekta FunkSPEC GRAVITY1.263Dgyjom5.005-<=1.025The [facility] HospitalComment on above:Performed By: #### CBC #### [facility] [address] [address] [address] Ekta Camejo PROTEINNegativeNormalNEGATIVE/ TRACEThe [facility] Comment on above:Performed By: #### CBC #### [facility] [address] [address] [address] Ekta Villarreal MICRO INDNOT INDICATEDNoFulton County Health CenterComment on above:Performed By: #### CBC #### [facility] [address] [place] [address] Dr. Ekta FunkUrobilinogen Qn (U)0.2 {Ivan'U}/dLNormal0.2 - 1.0The [facility] HospitalComment on above:Performed By: #### CBC #### [facility] [address] [place] [address] Dr. Ekta FunkGLYCOHEMOGLOBIN A1Con [id number] RECOMMENDATIONSEE BELOWNormal The [facility] HospitalComment on above:Result Comment: ADA RECOMMENDED LIMIT 4.0 - 6.0 ADA THERAPEUTIC TARGET < 7.0 ACTION SUGGESTED > 7.0Performed By: #### B12FOL, VITAD, IRON #### [facility] [address] [place] [address] Dr. Ekta FunkGlucose [Mass/Vol]143 mg/dLKing's Daughters Medical Center OhioComment on above:Performed By: #### B12FOL, VITAD, IRON #### [facility] [address] [place] [address] Dr. Ekta FunkHbA1c (Bld) [Mass fraction]6.6 %Critically high4.5-6.2The [facility] HospitalComment on above:Performed By: #### B12FOL, VITAD, IRON #### [facility] [address] [place] [address] Dr. Ekta FunkLACTATE/LACTIC ACIDon [id number] [Moles/Vol]1.6 mmol/L Normal0.4-2.0The [facility] HospitalComment on above:Performed By: #### CMP #### [facility] [address] [address] [address] Ekta FunkLactate [Moles/Vol]2.1 mmol/LCritically high0.4-2.0[facility] on above:Performed By: #### B12FOL, VITAD, IRON #### [facility] [address] [place] [address] Dr. Ekta FunkLIPASEon 69-03-5726Jtruky [Catalytic activity/Vol]165.0 U/LNormal 73.0-393.0[facility] on above:Performed By: #### B12FOL, VITAD, IRON #### [facility] [address] [place] [address] Dr. Ekta EncinasID PROFILEon [id number]-HDL RATIO NORMSEE [facility] SouthCommymichigan medical center on above:Result Comment: 3.3 - 4.4 LOW RISK 4.4 - 7.1 AVERAGE RISK 7.1 - 11.0 MODERATE RISK >11.0 HIGH RISKPerformed By: #### B12FOL, VITAD, IRON #### [facility] [address] [place] [address] Dr. Ekta Tejedaesterol [Mass/Vol]248 mg/dLCritically high<=200[facility] on above:Performed By: #### B12FOL, VITAD, IRON #### [facility] [address] [place] [address] Dr. Ekta FunkCholesterol in HDL [Mass/Vol]58 mg/bWCdvodw78-64G[facility] on above:Performed By: #### B12FOL, VITAD, IRON #### [facility] [address] [place] [address] Dr. Ekta Tejedaesterol in LDL [Mass/Vol]165.6 mg/dLMercy Health St. [facility] on above:Performed By: #### B12FOL, VITAD, IRON #### [facility] [address] [place] [address] Dr. Yilan ChangCholesterol.total/Cholesterol in HDL [Mass ratio]4.3 {ratio} NormalGuernsey Memorial HospitalComment on above:Performed By: #### B12FOL, VITAD, IRON #### [facility] [address] [place] [address] Dr. Ekta Uriarte NORMAL> or = 60 mg/dl - LOW CARDIOVASCULAR RISK <40 mg/dl - HIGH CARDIOVASCULAR RISKKing's Daughters Medical Center OhioComment on above:Performed By: #### B12FOL, VITAD, IRON #### [facility] [address] [place] [address] Dr. Ekta FunkLDL CALC NORMALSEE BELOWKing's Daughters Medical Center OhioComment on above:Result Comment: <100 mg/dl OPTIMAL 100 - 129 mg/dl NEAR OR ABOVE OPTIMAL 130 - 159 mg/dl BORDERLINE HIGH 160 - 189 mg/dl HIGH >190 mg/dl VERY HIGH Performed By: #### B12FOL, VITAD, IRON #### [facility] [address] [place] [address] Dr. Ekta FunkTriglyceride [Mass/Vol]122 mg/dLNormal<=150[facility] Comment on above:Performed By: #### B12FOL, VITAD, IRON #### [facility] [address] [place] [address] Dr. Ekta AnneLDL CALC24.4 mg/dLKing's Daughters Medical Center OhioComment on above: Performed By: #### B12FOL, VITAD, IRON #### [facility] [address] [place] [address] Dr. Ekta FunkLeonardo BRAIN WO CONon [id number] BRAIN WO CONI BRAIN WO CON 11/24/2022 [...] by: RAVEN ELAINE Date: 2022-11-24 19:35Normal The [facility] HospitalPROF 14(COMP METB)on [id number] [Mass/Vol]2.7 g/dL Critically low3.4-5.0The [facility] HospitalComment on above:Performed By: #### B12FOL, VITAD, IRON #### [facility] [address] [address] [address] Ekta FunkAlbumin/Globulin [Mass ratio]0.6 {ratio}NormalThe [facility] HospitalComment on above:Performed By: #### B12FOL, VITAD, IRON #### [facility] [address] [address] [address] Ekta Cowart [Catalytic activity/Vol]85 U/MNvxnvn67-397Gxg [facility] HospitalComment on above:Performed By: #### B12FOL, VITAD, IRON #### [facility] [address] [address] [address] Ekta Mccormick [Catalytic activity/Vol]18 U/HNviuml42-81Nis [facility] HospitalComment on above:Performed By: #### B12FOL, VITAD, IRON #### [facility] [address] [address] [address] Ekta Harrison gap [Moles/Vol]18.9 mmol/LNormalThe [facility] Comment on above:Performed By: #### B12FOL, VITAD, IRON #### [facility] [address] [address] [address] Ekta FunkAST [Catalytic activity/Vol]16 U/SOljpci89-34Rbl [facility] HospitalComment on above:Performed By: #### B12FOL, VITAD, IRON #### [facility] [address] [place] [address] Dr. Ekta FunkBilirubin [Mass/Vol]0.4 mg/dLNormal0.2-1.0The [facility] Comment on above:Performed By: #### B12FOL, VITAD, IRON #### [facility] [address] [place] [address] Dr. Ekta FunkCalcium [Mass/Vol]9.5 mg/dLNormal8.5-10.1The [facility] Comment on above:Performed By: #### B12FOL, VITAD, IRON #### [facility] [address] [place] [address] Dr. Ekta FunkChloride [Moles/Vol]108 mmol/LCritically ihwj73-894Oya [facility] HospitalComment on above:Performed By: #### B12FOL, VITAD, IRON #### [facility] [address] [place] [address] Dr. Ekta FunkCO2 [Moles/Vol]21.1 mmol/VQywnvn40.0-32.0[facility] Comment on above:Performed By: #### B12FOL, VITAD, IRON #### [facility] [address] [place] [address] Dr. Ekta FunkCreatinine [Mass/Vol]2.08 mg/dLCritically high0.55-1.02The [facility] HospitalComment on above:Performed By: #### B12FOL, VITAD, IRON #### [facility] [address] [place] [address] Dr. Ekta AbebeGFR-AF MEOASNQL60 mL/min/1.02o8Tmfnqinsgj low>=60The [facility] HospitalComment on above:Performed By: #### B12FOL, VITAD, IRON #### [facility] [address] [address] [address] Ekta AbebeGFR-NON AF NEBXFOQN24 mL/min/1.87t1Mjggusiccr low>=60The [facility] HospitalComment on above:Performed By: #### B12FOL, VITAD, IRON #### [facility] [address] [address] [address] Ekta FunkGlobulin (S) [Mass/Vol]4.6 g/dLNormalThe [facility] HospitalComment on above:Performed By: #### B12FOL, VITAD, IRON #### [facility] [address] [address] [address] Ekta FunkGlucose [Mass/Vol]119 mg/dLCritically blzf58-041Xac [facility] HospitalComment on above:Performed By: #### B12FOL, VITAD, IRON #### [facility] [address] [place] [address] Dr. Ekta FunkPotassium [Moles/Vol]5.0 mmol/LNormal3.5-5.1The [facility] Comment on above:Performed By: #### B12FOL, VITAD, IRON #### [facility] [address] [address] [address] Ekta FunkProtein [Mass/Vol]7.3 g/dLNormal6.4-8.2[facility] Comment on above:Performed By: #### B12FOL, VITAD, IRON #### [facility] [address] [place] [address] Dr. Ekta FunkSodium [Moles/Vol]143 mmol/WWtzros606-897Wcv [facility] Comment on above:Performed By: #### B12FOL, VITAD, IRON #### [facility] [address] [place] [address] Dr. Ekta FunkUrea nitrogen [Mass/Vol]37.0 mg/dLCritically high7.0-18.0The [facility] HospitalComment on above:Performed By: #### B12FOL, VITAD, IRON #### [facility] [address] [place] [address] Dr. Ekta FunkUrea nitrogen/Creatinine [Mass ratio]17.8 mg/mgNoFulton County Health CenterComment on above:Performed By: #### B12FOL VITCAMI, IRON #### [facility] [address] [place] [address] Dr. Ekta Rich, HIGH SENSITIVITYon 96-69-6183LHZEQY69.1 pg/mLNormal 4.0-51.3[facility] on above:Result Comment: CUT-OFF POINTS HAVE BEEN ESTABLISHED BASED ON THE FOURTH UNIVERSAL DEFINITIONS OF MYOCARDIAL INFARCTION. THE UPPER REFERENCE LIMIT (URL) OF TROPONIN, DEFINED THE 99TH PERCENTILE OF cTnI DISTRIBUTION IN A REFERENCE POPULATION, HAS BEEN CONFIRMED THE DECISION THRESHOLD FOR VA DIAGNOSIS.Performed By: #### B12FOLCAROLYN, IRON #### [facility] [address] [place] [address] Dr. Ekta Carmona 29-32-5959RLB4.184 uIU/mLNormal0.358-3.740The [facility] on above:Performed By: #### B12FOL VITAD, IRON #### [facility] [address] [place] [address] Dr. Ekta FunkXR CHEST 1 Von [id number] CHEST 1 VEXAM: XR CHEST 1 V [...] Electronically authenticated by: NATALIIA TATE Date: 2022-11-24 11:00[facility] OhioBNPon [id number] peptide B (Bld) [Mass/Vol]565.0 pg/mLNormal<=900.0The [facility] on above:Performed By: #### INSULIN #### [facility] [address] [address] [address] Ekta Agarwal AUTO DIFFon [id number] #0.1 103/ulNormal0.0-0.1The [facility] HospitalComment on above:Performed By: #### CBC #### [facility] [address] [address] [address] Ekta FunkBasophils/100 WBC (Bld)0.6 %Normal0.2-2.0[facility] Comment on above:Performed By: #### CBC #### [facility] [address] [place] [address] Dr. Ekta Anthony #0.4 103/ulNormal0.0-0.7The [facility] HospitalComment on above: Performed By: #### CBC #### [facility] [address] [place] [address] Dr. Ekta Abebeosinophils/100 WBC (Bld)3.7 %Normal0.9-7.0The [facility] Comment on above:Performed By: #### CBC #### [facility] [address] [place] [address] Dr. Ekta Abeberythrocyte distribution width (RBC) [Ratio]13.2 %Zhauvp30.0-15.0 The [facility] HospitalComment on above:Performed By: #### CBC #### [facility] [address] [place] [address] Dr. Ekta FunkHematocrit (Bld) [Volume fraction]36.7 %Qnuvua92.0-48.0The [facility] HospitalComment on above:Performed By: #### CBC #### [facility] [address] [place] [address] Dr. Ekta FunkHemoglobin (Bld) [Mass/Vol]12.4 g/tCPodlcp11.0-16.0The [facility] HospitalComment on above:Performed By: #### CBC #### [facility] [address] [place] [address] Dr. Ekta Olivares #0.10 10e3/ulCritically high0.00-0.03The [facility] Comment on above:Performed By: #### CBC #### [facility] [address] [place] [address] Dr. Ekta Olivares %1.0 %Critically high0.0-0.5The [facility] HospitalComment on above:Performed By: #### CBC #### [facility] [address] [address] [address] Ekta Putnam #1.5 103/ulNormal1.2-3.8The [facility] HospitalComment on above:Performed By: #### CBC #### [facility] [address] [place] [address] Dr. Ekta Lundberghocytes/100 WBC (Bld)14.9 %Critically low20.5-60.0The [facility] HospitalComment on above:Performed By: #### CBC #### [facility] [address] [place] [address] Dr. Ekta Beckham DIFF REQNONormalThe [facility] HospitalComment on above: Performed By: #### CBC #### [facility] [address] [place] [address] Dr. Ekta Frye (RBC) [Entitic mass]32.8 zwRsgpih62.7-34.0The [facility] HospitalComment on above:Performed By: #### CBC #### [facility] [address] [place] [address] Dr. Ekta Oconnor (RBC) [Mass/Vol]33.8 g/wMDfvkgl32.9-35.2The [facility] HospitalComment on above:Performed By: #### CBC #### [facility] [address] [place] [address] Dr. Ekta Oconnor (RBC) [Entitic vol]97.1 qZDwsuby95.0-99.0The [facility] HospitalComment on above:Performed By: #### CBC #### [facility] [address] [place] [address] Dr. Ekta Rivas #0.8 103/ulNormal0.3-0.8The [facility] HospitalComment on above:Performed By: #### CBC #### [facility] [address] [place] [address] Dr. Ekta Perkinsocytes/100 WBC (Bld)7.7 %Normal1.7-12.0The [facility] Comment on above:Performed By: #### CBC #### [facility] [address] [place] [address] Dr. Ekta Salazar #7.3 103/ulCritically high1.4-6.5The [facility] Comment on above:Performed By: #### CBC #### [facility] [address] [place] [address] Dr. Ekta Dimasutrophils/100 WBC (Bld)72.1 %Odbbmm43.0-75.0The [facility] HospitalComment on above:Performed By: #### CBC #### [facility] [address] [place] [address] Dr. Ekta Salomonlet mean volume (Bld) [Entitic vol]9.4 fLCritically low 9.5-13.5The [facility] HospitalComment on above:Performed By: #### CBC #### [facility] [address] [place] [address] Dr. Ekta DriverT251 103/isSjapoc057-653Xle [facility] HospitalComment on above: Performed By: #### CBC #### [facility] [address] [place] [address] Dr. Ekta AllenC3.78 106/ulCritically low4.20-5.40The [facility] HospitalComment on above:Performed By: #### CBC #### [facility] [address] [place] [address] Dr. Ekta FunkWBC10.1 103/ulNormal4.0-11.0The [facility] HospitalComment on above:Performed By: #### CBC #### [facility] [address] [place] [address] Dr. Ekta Correa THYROXINE INDEX T7on 32-67-6737VMH2.36Ewikyn9.30-4.50The [facility] HospitalComment on above:Performed By: #### INSULIN #### [facility] [address] [address] [address] Ekta FunkT3U35.0 %Jszifm69.0-39.0The [facility] HospitalComment on above: Performed By: #### INSULIN #### [facility] [address] [address] [address] Ekta FunkT4 [Mass/Vol]7.80 ug/dLNormal4.80-13.90The [facility] Comment on above:Performed By: #### INSULIN #### [facility] [address] [place] [address] Dr. Ekta FunkGLYCOHEMOGLOBIN A1Con 27-59-5183GHI RECOMMENDATIONSEE BELOWNormal The [facility] HospitalComment on above:Result Comment: ADA RECOMMENDED LIMIT 4.0 - 6.0 ADA THERAPEUTIC TARGET < 7.0 ACTION SUGGESTED > 7.0Performed By: #### B12FOL, VITAD, IRON #### [facility] [address] [place] [address] Dr. Ekta FunkGlucose [Mass/Vol]134 mg/dLNormalThe [facility] HospitalComment on above:Performed By: #### B12FOL, VITAD, IRON #### [facility] [address] [place] [address] Dr. Ekta FunkHbA1c (Bld) [Mass fraction]6.3 %Critically high4.5-6.2The [facility] HospitalComment on above:Performed By: #### B12FOL, VITAD, IRON #### [facility] [address] [place] [address] Dr. Ekta Shannon 17-78-1755Hrhe [Mass/Vol]55.0 ug/bAJznkwh11.0-170.0The [facility] HospitalComment on above:Performed By: #### B12FOL, VITAD, IRON #### [facility] [address] [place] [address] Dr. Yilan ChangLIPID PROFILEon [id number]-HDL RATIO NORMSEE [facility] SouthComment on above:Result Comment: 3.3 - 4.4 LOW RISK 4.4 - 7.1 AVERAGE RISK 7.1 - 11.0 MODERATE RISK >11.0 HIGH RISKPerformed By: #### INSULIN #### [facility] [address] [address] [address] Ekta FunkCholesterol [Mass/Vol]294 mg/dLCritically high<=200The [facility] HospitalComment on above:Performed By: #### INSULIN #### [facility] [address] [address] [address] Ekta FunkCholesterol in HDL [Mass/Vol]64 mg/dLCritically dzoj14-80GeuGuernsey Memorial HospitalCommymichigan medical center on above:Performed By: #### INSULIN #### [facility] [address] [address] [address] Ekta FunkCholesterol in LDL [Mass/Vol]197.2 mg/dLKing's Daughters Medical Center OhioComment on above:Performed By: #### INSULIN #### [facility] [address] [address] [address] Ekta Tejedaestertrcay.total/Cholesterol in HDL [Mass ratio]4.6 {ratio} NormalThe [facility] on above:Performed By: #### INSULIN #### [facility] [address] [address] [address] Ekta Uriarte NORMAL> or = 60 mg/dl - LOW CARDIOVASCULAR RISK <40 mg/dl - HIGH CARDIOVASCULAR RISKKing's Daughters Medical Center OhioCommymichigan medical center on above:Performed By: #### INSULIN #### [facility] [address] [address] [address] Ekta FunkLDL CALC NORMALSEE [facility] SouthComment on above:Result Comment: <100 mg/dl OPTIMAL 100 - 129 mg/dl NEAR OR ABOVE OPTIMAL 130 - 159 mg/dl BORDERLINE HIGH 160 - 189 mg/dl HIGH >190 mg/dl VERY HIGH Performed By: #### INSULIN #### [facility] [address] [place] [address] Dr. Ekta FunkTriglyceride [Mass/Vol]164 mg/dLCritically high<=150The [facility] HospitalComment on above:Performed By: #### INSULIN #### [facility] [address] [address] [address] Ekta FunkVLDL CALC32.8 mg/dLNormalThe [facility] HospitalComment on above: Performed By: #### INSULIN #### [facility] [address] [address] [address] Ekta FunkPROF 14(COMP METB)on 39-43-5834Yowgzbo [Mass/Vol]3.0 g/dL Critically low3.4-5.0The [facility] HospitalComment on above:Performed By: #### INSULIN #### [facility] [address] [place] [address] Dr. Ekta FunkAlbumin/Globulin [Mass ratio]0.6 {ratio}NormalThe [facility] HospitalComment on above:Performed By: #### INSULIN #### [facility] [address] [place] [address] Dr. Ekta Cowart [Catalytic activity/Vol]92 U/XCwosef37-594Jua [facility] HospitalComment on above:Performed By: #### INSULIN #### [facility] [address] [place] [address] Dr. Ekta Mccormick [Catalytic activity/Vol]26 U/GPctwyu33-88Jeh [facility] HospitalComment on above:Performed By: #### INSULIN #### [facility] [address] [address] [address] Ekta Harrison gap [Moles/Vol]16.2 mmol/LNormalThe [facility] Comment on above:Performed By: #### INSULIN #### [facility] [address] [place] [address] Dr. Ekta FunkAST [Catalytic activity/Vol]16 U/IHlczbn43-79Vzb [facility] HospitalComment on above:Performed By: #### INSULIN #### [facility] [address] [address] [address] Ekta FunkBilirubin [Mass/Vol]0.5 mg/dLNormal0.2-1.0The [facility] Comment on above:Performed By: #### INSULIN #### [facility] [address] [place] [address] Dr. Ekta FunkCalcium [Mass/Vol]9.7 mg/dLNormal8.5-10.1The [facility] Comment on above:Performed By: #### INSULIN #### [facility] [address] [address] [address] Ekta FunkChloride [Moles/Vol]105 mmol/UCszvrf95-492Nmk [facility] Comment on above:Performed By: #### INSULIN #### [facility] [address] [place] [address] Dr. Ekta FunkCO2 [Moles/Vol]24.9 mmol/WYwqphh20.0-32.0The [facility] Comment on above:Performed By: #### INSULIN #### [facility] [address] [place] [address] Dr. Ekta FunkCreatinine [Mass/Vol]2.18 mg/dLCritically high0.55-1.02The [facility] HospitalComment on above:Performed By: #### INSULIN #### [facility] [address] [place] [address] Dr. Ekta AbebeGFR-AF SZDWQOZQ49 mL/min/1.32b7Ydpiwcygdp low>=60The [facility] HospitalComment on above:Performed By: #### INSULIN #### [facility] [address] [place] [address] Dr. Ekta AbebeGFR-NON AF EHQNXZDD08 mL/min/1.79k5Oojgtfgrct low>=60The [facility] HospitalComment on above:Performed By: #### INSULIN #### [facility] [address] [place] [address] Dr. Ekta FunkGlobulin (S) [Mass/Vol]4.7 g/dLNormalThe [facility] HospitalComment on above:Performed By: #### INSULIN #### [facility] [address] [place] [address] Dr. Ekta FunkGlucose [Mass/Vol]114 mg/dLCritically sbro59-038Wmg [facility] HospitalComment on above:Performed By: #### INSULIN #### [facility] [address] [address] [address] Ekta FunkPotassium [Moles/Vol]5.1 mmol/LNormal3.5-5.1[facility] Comment on above:Performed By: #### INSULIN #### [facility] [address] [address] [address] Ekta FunkProtein [Mass/Vol]7.7 g/dLNormal6.4-8.2[facility] Comment on above:Performed By: #### INSULIN #### [facility] [address] [address] [address] Ekta FunkSodium [Moles/Vol]141 mmol/TVwqdqa320-491Vxn [facility] Comment on above:Performed By: #### INSULIN #### [facility] [address] [address] [address] Ekta FunkUrea nitrogen [Mass/Vol]51.0 mg/dLCritically high7.0-18.0The [facility] HospitalComment on above:Performed By: #### INSULIN #### [facility] [address] [address] [address] Ekta Spring nitrogen/Creatinine [Mass ratio]23.4 mg/mgNormalThe [facility] HospitalComment on above:Performed By: #### INSULIN #### [facility] [address] [address] [address] Ekta DoanHorama 45-46-8279CFW0.935 uIU/mLNormal0.358-3.740[facility] Memorial HospitalComment on above:Performed By: #### INSULIN #### [facility] [address] [place] [address] Dr. Ekta FunkXR CHEST 2 Von [id number] CHEST 2 VEXAMINATION: XR CHEST 2 V [...] Electronically authenticated by: GODWIN BECK Date: 2022-11-13 15:40[facility] OhioPROF 14(COMP METB)on 79-29-5313Ixilcgg [Mass/Vol]3.0 g/dL Critically low3.4-5.0The [facility] HospitalComment on above:Performed By: #### B12FOL, VITAD, IRON #### [facility] [address] [place] [address] Dr. Ekta FunkAlbumin/Globulin [Mass ratio]0.7 {ratio}NormalThe [facility] HospitalComment on above:Performed By: #### B12FOL, VITAD, IRON #### [facility] [address] [place] [address] Dr. Ekta Cowart [Catalytic activity/Vol]89 U/SIkfjai18-067Ils [facility] HospitalComment on above:Performed By: #### B12FOL, VITAD, IRON #### [facility] [address] [place] [address] Dr. Ekta Mccormick [Catalytic activity/Vol]29 U/CNwjtfx13-66Goq [facility] HospitalComment on above:Performed By: #### B12FOL, VITAD, IRON #### [facility] [address] [address] [address] Ekta Harrison gap [Moles/Vol]15.2 mmol/LNormalThe [facility] Comment on above:Performed By: #### B12FOL, VITAD, IRON #### [facility] [address] [place] [address] Dr. Ekta Gonzalez [Catalytic activity/Vol]14 U/LCritically eab98-86Sga [facility] HospitalComment on above:Performed By: #### B12FOL, VITAD, IRON #### [facility] [address] [place] [address] Dr. Ekta FunkBilirubin [Mass/Vol]0.4 mg/dLNormal0.2-1.0[facility] Comment on above:Performed By: #### B12FOL, VITAD, IRON #### [facility] [address] [place] [address] Dr. Ekta FunkCalcium [Mass/Vol]9.1 mg/dLNormal8.5-10.1The [facility] Comment on above:Performed By: #### B12FOL, VITAD, IRON #### [facility] [address] [place] [address] Dr. Ekta FunkChloride [Moles/Vol]106 mmol/XOyibxg06-514FuyGuernsey Memorial Hospital Comment on above:Performed By: #### B12FOL, VITAD, IRON #### [facility] [address] [place] [address] Dr. Ekta FunkCO2 [Moles/Vol]24.2 mmol/RRhcmgz17.0-32.0[facility] Comment on above:Performed By: #### B12FOL, VITAD, IRON #### [facility] [address] [place] [address] Dr. Ekta FunkCreatinine [Mass/Vol]1.89 mg/dLCritically high0.55-1.02[facility] HospitalComment on above:Performed By: #### B12FOL, VITAD, IRON #### [facility] [address] [place] [address] Dr. Ekta Ro-AF IEANXKYS45 mL/min/1.53c4Buazgepaqq low>=60The [facility] HospitalComment on above:Performed By: #### B12FOL, VITAD, IRON #### [facility] [address] [place] [address] Dr. Ekta Ro-NON AF FUIIRIDV02 mL/min/1.82n2Dcdsjjolma low>=60The [facility] HospitalComment on above:Performed By: #### B12FOL, VITAD, IRON #### [facility] [address] [place] [address] Dr. Ekta FunkGlobulin (S) [Mass/Vol]4.1 g/dLNormOhioHealth Dublin Methodist HospitalComment on above:Performed By: #### B12FOL, VITAD, IRON #### [facility] [address] [address] [address] Ekta FunkGlucose [Mass/Vol]108 mg/dLCritically uumf90-496Rzo [facility] HospitalComment on above:Performed By: #### B12FOL, VITAD, IRON #### [facility] [address] [place] [address] Dr. Ekta FunkPotassium [Moles/Vol]4.4 mmol/LNormal3.5-5.1The [facility] Comment on above:Performed By: #### B12FOL, VITAD, IRON #### [facility] [address] [place] [address] Dr. Ekta FunkProtein [Mass/Vol]7.1 g/dLNormal6.4-8.2The [facility] Comment on above:Performed By: #### B12FOL, VITAD, IRON #### [facility] [address] [place] [address] Dr. Ekta FunkSodium [Moles/Vol]141 mmol/ANnibrn879-134Jvh [facility] Comment on above:Performed By: #### B12FOL, VITAD, IRON #### [facility] [address] [place] [address] Dr. Ekta FunkUrea nitrogen [Mass/Vol]40.0 mg/dLCritically high7.0-18.0The [facility] HospitalComment on above:Performed By: #### B12FOL, VITAD, IRON #### [facility] [address] [place] [address] Dr. Ekta FunkUrea nitrogen/Creatinine [Mass ratio]21.2 mg/mgNoFulton County Health CenterComment on above:Performed By: #### B12FOL, VITAD, IRON #### [facility] [address] [place] [address] Dr. Ekta Vaughan 96-04-1467Ftmeubkzqmc peptide B (Bld) [Mass/Vol]507.0 pg/mL Normal<=900.0The [facility] HospitalComment on above:Performed By: #### B12FOL, VITAD, IRON #### [facility] [address] [address] [address] Ekta Agarwal AUTO DIFFon [id number] #0.0 103/ulNormal0.0-0.1The [facility] HospitalComment on above:Performed By: #### CBC #### [facility] [address] [place] [address] Dr. Ekta FunkBasophils/100 WBC (Bld)0.2 %Normal0.2-2.0The [facility] Comment on above:Performed By: #### CBC #### [facility] [address] [place] [address] Dr. Ekta Anthony #0.1 103/ulNormal0.0-0.7The [facility] HospitalComment on above: Performed By: #### CBC #### [facility] [address] [place] [address] Dr. Ekta Abebeosinophils/100 WBC (Bld)1.1 %Normal0.9-7.0The [facility] Comment on above:Performed By: #### CBC #### [facility] [address] [place] [address] Dr. Ekta Abeberythrocyte distribution width (RBC) [Ratio]12.8 %Gyorwp88.0-15.0 The [facility] HospitalComment on above:Performed By: #### CBC #### [facility] [address] [place] [address] Dr. Ekta FunkHematocrit (Bld) [Volume fraction]37.1 %Zlcuzd99.0-48.0The [facility] HospitalComment on above:Performed By: #### CBC #### [facility] [address] [place] [address] Dr. Ekta FunkHemoglobin (Bld) [Mass/Vol]13.0 g/lFQkqwby61.0-16.0The [facility] HospitalComment on above:Performed By: #### CBC #### [facility] [address] [address] [address] Ekta Olivares #0.11 10e3/ulCritically high0.00-0.03The [facility] Comment on above:Performed By: #### CBC #### [facility] [address] [address] [address] Ekta Olivares %1.1 %Critically high0.0-0.5The [facility] HospitalComment on above:Performed By: #### CBC #### [facility] [address] [address] [address] Ekta Putnam #1.6 103/ulNormal1.2-3.8The [facility] HospitalComment on above:Performed By: #### CBC #### [facility] [address] [place] [address] Dr. Ekta Lundberghocytes/100 WBC (Bld)15.6 %Critically low20.5-60.0The [facility] HospitalComment on above:Performed By: #### CBC #### [facility] [address] [address] [address] Ekta MaloneUAL DIFF REQNONormalThe [facility] HospitalComment on above: Performed By: #### CBC #### [facility] [address] [place] [address] Dr. Ekta Oconnor (RBC) [Entitic mass]32.8 zsCcbjyn49.7-34.0The [facility] Hospitalment on above:Performed By: #### CBC #### [facility] [address] [place] [address] Dr. Ekta Oconnor (RBC) [Mass/Vol]35.0 g/yNApegbp67.9-35.2The [facility] on above:Performed By: #### CBC #### [facility] [address] [place] [address] Dr. Ekta Oconnor (RBC) [Entitic vol]93.7 mCRkptyi64.0-99.0The [facility] HospitalComment on above:Performed By: #### CBC #### [facility] [address] [address] [address] Ekta Rivas #0.9 103/ulCritically high0.3-0.8ThBer[facility] Comment on above:Performed By: #### CBC #### [facility] [address] [address] [address] Ekta Perkinsocytes/100 WBC (Bld)8.3 %Normal1.7-12.0[facility] Comment on above:Performed By: #### CBC #### [facility] [address] [address] [address] Ekta Salazar #7.5 103/ulCritically high1.4-6.5ThBer[facility] Comment on above:Performed By: #### CBC #### [facility] [address] [place] [address] Dr. Ekta Dimasutrophils/100 WBC (Bld)73.7 %Osfdnf82.0-75.0The [facility] HospitalComment on above:Performed By: #### CBC #### [facility] [address] [address] [address] Ekta Salomonlet mean volume (Bld) [Entitic vol]10.3 fLNormal9.5-13.5ThBerger HospitalComment on above:Performed By: #### CBC #### [facility] [address] [address] [address] Ekta FunkPLT135 103/ulCritically yrp045-587Kkb [facility] HospitalComment on above:Performed By: #### CBC #### [facility] [address] [address] [address] Ekta FunkRBC3.96 106/ulCritically low4.20-5.40The [facility] HospitalCommymichigan medical center on above:Performed By: #### CBC #### [facility] [address] [address] [address] Ekta FunkWBC10.2 103/ulNormal4.0-11.0The [facility] HospitalComment on above:Performed By: #### CBC #### [facility] [address] [place] [address] Dr. Ekta Pal 14(COMP METB)on 25-07-4446Ydkesrc [Mass/Vol]2.7 g/dL Critically low3.4-5.0The [facility] HospitalComment on above:Performed By: #### B12FOL, VITAD, IRON #### [facility] [address] [place] [address] Dr. Ekta FunkAlbumin/Globulin [Mass ratio]0.8 {ratio}NormalThe [facility] HospitalComment on above:Performed By: #### B12FOL, VITAD, IRON #### [facility] [address] [place] [address] Dr. Ekta Cowart [Catalytic activity/Vol]74 U/SQqsfrn19-283Phm [facility] Hospitalment on above:Performed By: #### B12FOL, VITAD, IRON #### [facility] [address] [place] [address] Dr. Ekta Mccormick [Catalytic activity/Vol]26 U/KYdsyol19-22Gmu [facility] Hospitalment on above:Performed By: #### B12FOL, VITAD, IRON #### [facility] [address] [place] [address] Dr. Ekta Harrison gap [Moles/Vol]16.5 mmol/LNormalThe [facility] Comment on above:Performed By: #### B12FOL, VITAD, IRON #### [facility] [address] [place] [address] Dr. Ekta Gonzalez [Catalytic activity/Vol]15 U/FKzyuzv80-46Ixi [facility] Hospitalment on above:Performed By: #### B12FOL, VITAD, IRON #### [facility] [address] [place] [address] Dr. Ekta FunkBilirubin [Mass/Vol]0.4 mg/dLNormal0.2-1.0The [facility] Comment on above:Performed By: #### B12FOL, VITAD, IRON #### [facility] [address] [address] [address] Ekta FunkCalcium [Mass/Vol]8.1 mg/dLCritically low8.5-10.1The [facility] HospitalComment on above:Performed By: #### B12FOL, VITAD, IRON #### [facility] [address] [address] [address] Ekta FunkChloride [Moles/Vol]96 mmol/LCritically flf49-412Dnv [facility] HospitalComment on above:Performed By: #### B12FOL, VITAD, IRON #### [facility] [address] [place] [address] Dr. Ekta FunkCO2 [Moles/Vol]26.1 mmol/OToalot21.0-32.0The [facility] Comment on above:Performed By: #### B12FOL, VITAD, IRON #### [facility] [address] [place] [address] Dr. Ekta FunkCreatinine [Mass/Vol]3.28 mg/dLCritically high0.55-1.02The [facility] HospitalComment on above:Performed By: #### B12FOL, VITAD, IRON #### [facility] [address] [place] [address] Dr. Ekta AbebeGFR-AF AXNYFELN05 mL/min/1.12x7Tbfaeapawc low>=60The [facility] HospitalComment on above:Performed By: #### B12FOL, VITAD, IRON #### [facility] [address] [place] [address] Dr. Ekta AbebeGFR-NON AF NWRERWSS96 mL/min/1.04e8Qsxzkkmkqi low>=60The [facility] HospitalComment on above:Performed By: #### B12FOL, VITAD, IRON #### [facility] [address] [place] [address] Dr. Ekta FunkGlobulin (S) [Mass/Vol]3.6 g/dLNormalThe [facility] HospitalComment on above:Performed By: #### B12FOL, VITAD, IRON #### [facility] [address] [address] [address] Ekta FunkGlucose [Mass/Vol]132 mg/dLCritically wees90-407Qko [facility] HospitalComment on above:Performed By: #### B12FOL, VITAD, IRON #### [facility] [address] [place] [address] Dr. Ekta FunkPotassium [Moles/Vol]4.6 mmol/LNormal3.5-5.1The [facility] Comment on above:Performed By: #### B12FOL, VITAD, IRON #### [facility] [address] [place] [address] Dr. Ekta FunkProtein [Mass/Vol]6.3 g/dLCritically low6.4-8.2The [facility] HospitalComment on above:Performed By: #### B12FOL, VITAD, IRON #### [facility] [address] [place] [address] Dr. Ekta FunkSodium [Moles/Vol]134 mmol/LCritically wfj378-959Daj [facility] HospitalComment on above:Performed By: #### B12FOL, VITAD, IRON #### [facility] [address] [place] [address] Dr. Ekta FunkUrea nitrogen [Mass/Vol]74.0 mg/dLCritically high7.0-18.0The [facility] HospitalComment on above:Performed By: #### B12FOL, VITAD, IRON #### [facility] [address] [place] [address] Dr. Ekta Spring nitrogen/Creatinine [Mass ratio]22.6 mg/mgNormalThe [facility] HospitalComment on above:Performed By: #### B12FOL, VITAD, IRON #### [facility] [address] [place] [address] Dr. Ekta Vaughan [id number] peptide B (Bld) [Mass/Vol]1411.0 pg/mLCritically high<=900.0The [facility] HospitalComment on above:Performed By: #### B12FOL, VITAD, IRON #### [facility] [address] [place] [address] Dr. Ekta Agarwal AUTO DIFFon [id number] #0.0 103/ulNormal0.0-0.1The [facility] Hospitalment on above:Performed By: #### B12FOL, VITAD, IRON #### [facility] [address] [place] [address] Dr. Ekta FunkBasophils/100 WBC (Bld)0.3 %Normal0.2-2.0The [facility] Comment on above:Performed By: #### B12FOL, VITAD, IRON #### [facility] [address] [place] [address] Dr. Ekta Anthony #0.1 103/ulNormal0.0-0.7The [facility] Hospitalment on above: Performed By: #### B12FOL, VITAD, IRON #### [facility] [address] [place] [address] Dr. Ekta Abebeosinophils/100 WBC (Bld)0.6 %Critically low0.9-7.0The [facility] HospitalComment on above:Performed By: #### B12FOL, VITAD, IRON #### [facility] [address] [place] [address] Dr. Ekta Abeberythrocyte distribution width (RBC) [Ratio]12.9 %Sqlbzn86.0-15.0 The [facility] Hospitalment on above:Performed By: #### B12FOL, VITAD, IRON #### [facility] [address] [place] [address] Dr. Ekta FunkHematocrit (Bld) [Volume fraction]40.8 %Twsnvb75.0-48.0The [facility] HospitalComment on above:Performed By: #### B12FOL, VITAD, IRON #### [facility] [address] [place] [address] Dr. Ekta FunkHemoglobin (Bld) [Mass/Vol]14.0 g/wYVbjzba93.0-16.0The [facility] HospitalComment on above:Performed By: #### B12FOL, VITAD, IRON #### [facility] [address] [place] [address] Dr. Ekta Olivares #0.09 10e3/ulCritically high0.00-0.03The [facility] Comment on above:Performed By: #### B12FOL, VITAD, IRON #### [facility] [address] [place] [address] Dr. Ekta Olivares %0.8 %Critically high0.0-0.5The [facility] HospitalComment on above:Performed By: #### B12FOL, VITAD, IRON #### [facility] [address] [place] [address] Dr. Ekta Putnam #1.8 103/ulNormal1.2-3.8The [facility] HospitalComment on above:Performed By: #### B12FOL, VITAD, IRON #### [facility] [address] [place] [address] Dr. Ekta Lundberghocytes/100 WBC (Bld)16.2 %Critically low20.5-60.0The [facility] HospitalComment on above:Performed By: #### B12FOL, VITAD, IRON #### [facility] [address] [place] [address] Dr. Ekta Beckham DIFF REQNONormalThe [facility] HospitalComment on above: Performed By: #### B12FOL, VITAD, IRON #### [facility] [address] [place] [address] Dr. Ekta Oconnor (RBC) [Entitic mass]32.3 fpNixgbk10.7-34.0The [facility] HospitalComment on above:Performed By: #### B12FOL, VITAD, IRON #### [facility] [address] [place] [address] Dr. Ekta Oconnor (RBC) [Mass/Vol]34.3 g/hIJcbgzs05.9-35.2The [facility] HospitalComment on above:Performed By: #### B12FOL, VITAD, IRON #### [facility] [address] [place] [address] Dr. Ekta Estevez (RBC) [Entitic vol]94.2 vJElzrrz40.0-99.0The [facility] HospitalComment on above:Performed By: #### B12FOL, VITAD, IRON #### [facility] [address] [place] [address] Dr. Ekta Rivas #0.8 103/ulNormal0.3-0.8The [facility] HospitalComment on above:Performed By: #### B12FOL, VITAD, IRON #### [facility] [address] [place] [address] Dr. Ekta Perkinsocytes/100 WBC (Bld)7.3 %Normal1.7-12.0The [facility] Comment on above:Performed By: #### B12FOL, VITAD, IRON #### [facility] [address] [place] [address] Dr. Ekta Salazar #8.1 103/ulCritically high1.4-6.5The [facility] Comment on above:Performed By: #### B12FOL, VITAD, IRON #### [facility] [address] [place] [address] Dr. Ekta Dimasutrophils/100 WBC (Bld)74.8 %Eogijn83.0-75.0The [facility] HospitalComment on above:Performed By: #### B12FOL, VITAD, IRON #### [facility] [address] [place] [address] Dr. Ekta Trevino mean volume (Bld) [Entitic vol]9.8 fLNormal9.5-13.5The [facility] HospitalComment on above:Performed By: #### B12FOL, VITAD, IRON #### [facility] [address] [place] [address] Dr. Ekta DriverT226 103/maSxmmce446-592Yha [facility] HospitalComment on above: Performed By: #### B12FOL, VITAD, IRON #### [facility] [address] [place] [address] Dr. Ekta FunkRBC4.33 106/ulNormal4.20-5.40The [facility] HospitalComment on above:Performed By: #### B12FOL, VITAD, IRON #### [facility] [address] [place] [address] Dr. Ekta FunkWBC10.9 103/ulNormal4.0-11.0The [facility] HospitalComment on above:Performed By: #### B12FOL, VITAD, IRON #### [facility] [address] [place] [address] Dr. Ekta FunkPROF 14(COMP METB)on [id number] [Mass/Vol]3.1 g/dL Critically low3.4-5.0The [facility] HospitalComment on above:Performed By: #### B12FOL, VITAD, IRON #### [facility] [address] [place] [address] Dr. Ekta FunkAlbumin/Globulin [Mass ratio]0.7 {ratio}NormalThe [facility] HospitalComment on above:Performed By: #### B12FOL, VITAD, IRON #### [facility] [address] [place] [address] Dr. Ekta Cowart [Catalytic activity/Vol]81 U/WKsyesj93-726Rbl [facility] HospitalComment on above:Performed By: #### B12FOL, VITAD, IRON #### [facility] [address] [place] [address] Dr. Ekta Mccormick [Catalytic activity/Vol]30 U/RPzascg45-46Kjk [facility] Hospitalment on above:Performed By: #### B12FOL, VITAD, IRON #### [facility] [address] [place] [address] Dr. Ekta Harrison gap [Moles/Vol]17.3 mmol/LNormalThe [facility] on above:Performed By: #### B12FOL, VITAD, IRON #### [facility] [address] [place] [address] Dr. Yilan ChangAST [Catalytic activity/Vol]11 U/LCritically xbo50-40Ypz [facility] HospitalComment on above:Performed By: #### B12FOL, VITAD, IRON #### [facility] [address] [address] [address] Ekta FunkBilirubin [Mass/Vol]0.5 mg/dLNormal0.2-1.0[facility] Comment on above:Performed By: #### B12FOL, VITAD, IRON #### [facility] [address] [address] [address] Ekta FunkCalcium [Mass/Vol]8.6 mg/dLNormal8.5-10.1The [facility] Comment on above:Performed By: #### B12FOL, VITAD, IRON #### [facility] [address] [place] [address] Dr. Ekta FunkChloride [Moles/Vol]95 mmol/LCritically anx30-216Yqn [facility] HospitalComment on above:Performed By: #### B12FOL, VITAD, IRON #### [facility] [address] [address] [address] Ekta FunkCO2 [Moles/Vol]27.3 mmol/UVteafc73.0-32.0The [facility] Comment on above:Performed By: #### B12FOL, VITAD, IRON #### [facility] [address] [place] [address] Dr. Ekta FunkCreatinine [Mass/Vol]3.17 mg/dLCritically high0.55-1.02The [facility] HospitalComment on above:Performed By: #### B12FOL, VITAD, IRON #### [facility] [address] [address] [address] Ekta AbebeGFR-AF HVQVJPFB84 mL/min/1.72x0Noedmqtuhz low>=60The [facility] HospitalComment on above:Performed By: #### B12FOL, VITAD, IRON #### [facility] [address] [address] [address] Ekta AbebeGFR-NON AF YJBCYZKT97 mL/min/1.28d6Psanpcngxc low>=60The [facility] HospitalComment on above:Performed By: #### B12FOL, VITAD, IRON #### [facility] [address] [address] [address] Ekta FunkGlobulin (S) [Mass/Vol]4.6 g/dLNormOhioHealth Dublin Methodist HospitalComment on above:Performed By: #### B12FOL, VITAD, IRON #### [facility] [address] [place] [address] Dr. Ekta FunkGlucose [Mass/Vol]139 mg/dLCritically ihsg15-625Dyj [facility] HospitalComment on above:Performed By: #### B12FOL, VITAD, IRON #### [facility] [address] [place] [address] Dr. Ekta FunkPotassium [Moles/Vol]4.6 mmol/LNormal3.5-5.1The [facility] Comment on above:Performed By: #### B12FOL, VITAD, IRON #### [facility] [address] [place] [address] Dr. Ekta FunkProtein [Mass/Vol]7.7 g/dLNormal6.4-8.2The [facility] Comment on above:Performed By: #### B12FOL, VITAD, IRON #### [facility] [address] [place] [address] Dr. Ekta FunkSodium [Moles/Vol]135 mmol/LCritically efp399-826Lsg [facility] HospitalComment on above:Performed By: #### B12FOL, VITAD, IRON #### [facility] [address] [place] [address] Dr. Ekta FunkUrea nitrogen [Mass/Vol]73.0 mg/dLCritically high7.0-18.0The [facility] HospitalComment on above:Performed By: #### B12FOL, VITAD, IRON #### [facility] [address] [place] [address] Dr. Ekta FunkUrea nitrogen/Creatinine [Mass ratio]23.0 mg/mgNoFulton County Health CenterComment on above:Performed By: #### B12FOL, VITAD, IRON #### [facility] [address] [address] [address] Ekta Vaughan [id number] peptide B (Bld) [Mass/Vol]2007.0 pg/mLCritically high<=900.0The [facility] HospitalComment on above:Performed By: #### CMP #### [facility] [address] [address] [address] Ekta Agarwal AUTO DIFFon [id number] #0.0 103/ulNormal0.0-0.1The [facility] HospitalComment on above:Performed By: #### CBC #### [facility] [address] [place] [address] Dr. Ekta FunkBasophils/100 WBC (Bld)0.2 %Normal0.2-2.0The [facility] Comment on above:Performed By: #### CBC #### [facility] [address] [place] [address] Dr. Ekta Anthony #0.1 103/ulNormal0.0-0.7The [facility] HospitalComment on above: Performed By: #### CBC #### [facility] [address] [place] [address] Dr. Ekta Abebeosinophils/100 WBC (Bld)0.9 %Normal0.9-7.0The [facility] Comment on above:Performed By: #### CBC #### [facility] [address] [place] [address] Dr. Ekta Abeberythrocyte distribution width (RBC) [Ratio]12.8 %Oaqixu37.0-15.0 The [facility] HospitalComment on above:Performed By: #### CBC #### [facility] [address] [place] [address] Dr. Ekta FunkHematocrit (Bld) [Volume fraction]38.8 %Ukxmdq78.0-48.0The [facility] HospitalComment on above:Performed By: #### CBC #### [facility] [address] [address] [address] Ekta FunkHemoglobin (Bld) [Mass/Vol]13.3 g/fHKmwehl02.0-16.0The [facility] HospitalComment on above:Performed By: #### CBC #### [facility] [address] [address] [address] Ekta Olivares #0.08 10e3/ulCritically high0.00-0.03The [facility] Comment on above:Performed By: #### CBC #### [facility] [address] [place] [address] Dr. Ekta Olivares %0.8 %Critically high0.0-0.5The [facility] HospitalComment on above:Performed By: #### CBC #### [facility] [address] [place] [address] Dr. Ekta Putnam #1.7 103/ulNormal1.2-3.8The [facility] HospitalComment on above:Performed By: #### CBC #### [facility] [address] [place] [address] Dr. Ekta Lundberghocytes/100 WBC (Bld)17.3 %Critically low20.5-60.0The [facility] HospitalComment on above:Performed By: #### CBC #### [facility] [address] [place] [address] Dr. Ekta MaloneUAL DIFF REQNONormalThe [facility] Memorial HospitalComment on above: Performed By: #### CBC #### [facility] [address] [place] [address] Dr. Ekta Oconnor (RBC) [Entitic mass]32.1 olGhwnyu37.7-34.0The [facility] HospitalComment on above:Performed By: #### CBC #### [facility] [address] [place] [address] Dr. Ekat Oconnor (RBC) [Mass/Vol]34.3 g/qCJbkvko52.9-35.2The [facility] HospitalComment on above:Performed By: #### CBC #### [facility] [address] [place] [address] Dr. Ekta OconnorV (RBC) [Entitic vol]93.7 wWWvwpgh93.0-99.0The [facility] Hospitalment on above:Performed By: #### CBC #### [facility] [address] [place] [address] Dr. Ekta Rivas #0.6 103/ulNormal0.3-0.8The [facility] HospitalComment on above:Performed By: #### CBC #### [facility] [address] [place] [address] Dr. Ekta Perkinsocytes/100 WBC (Bld)6.4 %Normal1.7-12.0The [facility] Comment on above:Performed By: #### CBC #### [facility] [address] [place] [address] Dr. Ekta Salazar #7.4 103/ulCritically high1.4-6.5The [facility] Comment on above:Performed By: #### CBC #### [facility] [address] [place] [address] Dr. Ekta Dimasutrophils/100 WBC (Bld)74.4 %Mzgrww36.0-75.0The [facility] HospitalComment on above:Performed By: #### CBC #### [facility] [address] [place] [address] Dr. Ekta Salomonlet mean volume (Bld) [Entitic vol]9.8 fLNormal9.5-13.5The [facility] HospitalComment on above:Performed By: #### CBC #### [facility] [address] [place] [address] Dr. Ekta FunkPLT193 103/suLdvjxs631-966Jjb [facility] HospitalComment on above: Performed By: #### CBC #### [facility] [address] [place] [address] Dr. Ekta FunkRBC4.14 106/ulCritically low4.20-5.40The [facility] HospitalComment on above:Performed By: #### CBC #### [facility] [address] [address] [address] Ekta FunkWBC9.9 103/ulNormal4.0-11.0The [facility] HospitalComment on above: Performed By: #### CBC #### [facility] [address] [address] [address] Ekta FunkPROF 14(COMP METB)on 57-35-5670Cuxtkuj [Mass/Vol]3.2 g/dL Critically low3.4-5.0The [facility] HospitalComment on above:Performed By: #### INSULIN #### [facility] [address] [place] [address] Dr. Ekta FunkAlbumin/Globulin [Mass ratio]0.8 {ratio}NormalThe [facility] HospitalComment on above:Performed By: #### INSULIN #### [facility] [address] [place] [address] Dr. Ekta AlcantaraP [Catalytic activity/Vol]82 U/QFaegjg42-412Nii [facility] HospitalComment on above:Performed By: #### INSULIN #### [facility] [address] [place] [address] Dr. Ekta Mccormick [Catalytic activity/Vol]38 U/AZhuyol38-03Kqe [facility] HospitalComment on above:Performed By: #### INSULIN #### [facility] [address] [place] [address] Dr. Ekta Harrison gap [Moles/Vol]19.1 mmol/LNormalThe [facility] Comment on above:Performed By: #### INSULIN #### [facility] [address] [place] [address] Dr. Ekta FunkAST [Catalytic activity/Vol]19 U/VImaike90-45Rzr [facility] HospitalComment on above:Performed By: #### INSULIN #### [facility] [address] [place] [address] Dr. Ekta FunkBilirubin [Mass/Vol]0.4 mg/dLNormal0.2-1.0The [facility] Comment on above:Performed By: #### INSULIN #### [facility] [address] [address] [address] Ekta FunkCalcium [Mass/Vol]9.2 mg/dLNormal8.5-10.1The [facility] Comment on above:Performed By: #### INSULIN #### [facility] [address] [address] [address] Ekta FunkChloride [Moles/Vol]98 mmol/VNmvhvb39-493Pea [facility] Comment on above:Performed By: #### INSULIN #### [facility] [address] [address] [address] Ekta FunkCO2 [Moles/Vol]26.4 mmol/YGvhisa53.0-32.0The [facility] Comment on above:Performed By: #### INSULIN #### [facility] [address] [address] [address] Ekta FunkCreatinine [Mass/Vol]2.20 mg/dLCritically high0.55-1.02The [facility] HospitalComment on above:Performed By: #### INSULIN #### [facility] [address] [address] [address] Dash ChangEGFR-AF TKZGJDYH23 mL/min/1.12u9Sceasohfhv low>=60The [facility] HospitalComment on above:Performed By: #### INSULIN #### [facility] [address] [address] [address] Ekta AbebeGFR-NON AF NAIDTHUO17 mL/min/1.53z4Yxjupfqvcn low>=60The [facility] HospitalComment on above:Performed By: #### INSULIN #### [facility] [address] [address] [address] Ekta FunkGlobulin (S) [Mass/Vol]3.8 g/dLNormalThe [facility] HospitalComment on above:Performed By: #### INSULIN #### [facility] [address] [address] [address] Ekta FunkGlucose [Mass/Vol]142 mg/dLCritically eawh09-931Zrv [facility] HospitalComment on above:Performed By: #### INSULIN #### [facility] [address] [address] [address] Ekta FunkPotassium [Moles/Vol]4.5 mmol/LNormal3.5-5.1The [facility] Comment on above:Performed By: #### INSULIN #### [facility] [address] [address] [address] Ekta FunkProtein [Mass/Vol]7.0 g/dLNormal6.4-8.2The [facility] Comment on above:Performed By: #### INSULIN #### [facility] [address] [address] [address] Ekta FunkSodium [Moles/Vol]139 mmol/OCjwtho494-514Ruy [facility] Comment on above:Performed By: #### INSULIN #### [facility] [address] [address] [address] Ekta FunkUrea nitrogen [Mass/Vol]57.0 mg/dLCritically high7.0-18.0The [facility] HospitalComment on above:Performed By: #### INSULIN #### [facility] [address] [address] [address] Ekta FunkUrea nitrogen/Creatinine [Mass ratio]25.9 mg/mgNormalThe [facility] HospitalComment on above:Performed By: #### INSULIN #### [facility] [address] [address] [address] Ekta FunkT3, TOTAL (TRIIODOTHYRONINE)on 97-56-4999F1, TOTAL63 ng/dL Critically dzs49-521Tpt [facility] HospitalComment on above:Performed By: #### CMP #### [facility] [address] [address] [address] Ekta FunkXR ABD FLAT_UPon 31-87-8014LD ABD FLAT_UPEXAMINATION: XR ABD FLAT_UP HISTORY: Generalized abdominal pain , shortness of breath COMPARISON: No relevant comparison available. FINDINGS: BOWEL GAS PATTERN: Non-obstructed. FREE AIR: None. CALCIFICATIONS: None significant. BONES: Mild left convex curvature lumbar spine. No appreciable fracture. OTHER: Negative. IMPRESSION: 1. Normal bowel gas pattern. No suspicious abdominal findings. Electronically authenticated by: DANIEL PINEDA Date: 2022-10-21 11:42[facility] [place]XR CHEST 2 Von 40-86-1610EZ CHEST 2 VEXAM: XR CHEST 2 V, [...] Electronically authenticated by: CHRISTIANO MORALES Date: 2022-10-21 11:23[facility] OhioBNPon 09-47-6471Btozdtewzfb peptide B (Bld) [Mass/Vol]2512.0 pg/mLCritically high<=900.0The [facility] HospitalComment on above:Performed By: #### B12FOL, VITAD, IRON #### [facility] [address] [address] [address] Ekta Hale BRITTANIE ADMITon 76-13-4295AZ [Catalytic activity/Vol]35 U/L Gsgrmt43-152EruGuernsey Memorial HospitalComment on above:Performed By: #### B12FOL, VITAD, IRON #### [facility] [address] [address] [address] Ekta Howell.MB [Mass/Vol]0.64 ng/mLNormal<=3.60[facility] Comment on above:Performed By: #### B12FOL, VITAD, IRON #### [facility] [address] [address] [address] Ekta Carlisle28.1 pg/mLNormal4.0-51.3The [facility] HospitalComment on above:Result Comment: CUT-OFF POINTS HAVE BEEN ESTABLISHED BASED ON THE FOURTH UNIVERSAL DEFINITIONS OF MYOCARDIAL INFARCTION. THE UPPER REFERENCE LIMIT (URL) OF TROPONIN, DEFINED THE 99TH PERCENTILE OF cTnI DISTRIBUTION IN A REFERENCE POPULATION, HAS BEEN CONFIRMED THE DECISION THRESHOLD FOR VA DIAGNOSIS.Performed By: #### B12FOL, VITAD, IRON #### [facility] [address] [place] [address] Dr. Ekta FunkMYO57 ng/mLNormal9-82The [facility] HospitalComment on above: Performed By: #### B12FOL, VITAD, IRON #### [facility] [address] [place] [address] Dr. Ekta Agarwal AUTO DIFFon 38-88-5541NNKA #0.0 103/ulNormal0.0-0.1The [facility] HospitalComment on above:Performed By: #### CBC #### [facility] [address] [place] [address] Dr. Ekta FunkBasophils/100 WBC (Bld)0.2 %Normal0.2-2.0[facility] Comment on above:Performed By: #### CBC #### [facility] [address] [place] [address] Dr. Ekta Anthony #0.2 103/ulNormal0.0-0.7The [facility] HospitalComment on above: Performed By: #### CBC #### [facility] [address] [place] [address] Dr. Ekta Abebeosinophils/100 WBC (Bld)1.4 %Normal0.9-7.0[facility] Comment on above:Performed By: #### CBC #### [facility] [address] [place] [address] Dr. Ekta Abeberythrocyte distribution width (RBC) [Ratio]12.9 %Ogzhul33.0-15.0 [facility] HospitalComment on above:Performed By: #### CBC #### [facility] [address] [place] [address] Dr. Ekta FunkHematocrit (Bld) [Volume fraction]34.7 %Critically low36.0-48.0 The [facility] HospitalComment on above:Performed By: #### CBC #### [facility] [address] [place] [address] Dr. Yilan ChangHemoglobin (Bld) [Mass/Vol]11.8 g/dLCritically low12.0-16.0The [facility] HospitalComment on above:Performed By: #### CBC #### [facility] [address] [place] [address] Dr. Ekta Olivares #0.09 10e3/ulCritically high0.00-0.03The [facility] Comment on above:Performed By: #### CBC #### [facility] [address] [place] [address] Dr. Ekta Olivares %0.8 %Critically high0.0-0.5The [facility] HospitalComment on above:Performed By: #### CBC #### [facility] [address] [place] [address] Dr. Ekta Putnam #1.9 103/ulNormal1.2-3.8The [facility] HospitalComment on above:Performed By: #### CBC #### [facility] [address] [place] [address] Dr. Ekta Lundberghocytes/100 WBC (Bld)16.1 %Critically low20.5-60.0The [facility] HospitalComment on above:Performed By: #### CBC #### [facility] [address] [place] [address] Dr. Ekta Beckham DIFF REQNONormalThe [facility] HospitalComment on above: Performed By: #### CBC #### [facility] [address] [place] [address] Dr. Ekta Frye (RBC) [Entitic mass]32.6 kfLkbvgi68.7-34.0The [facility] HospitalComment on above:Performed By: #### CBC #### [facility] [address] [place] [address] Dr. Ekta Oconnor (RBC) [Mass/Vol]34.0 g/pXPbbhvn80.9-35.2The [facility] HospitalComment on above:Performed By: #### CBC #### [facility] [address] [place] [address] Dr. Ekta OconnorV (RBC) [Entitic vol]95.9 uJJkvwef73.0-99.0The [facility] HospitalComment on above:Performed By: #### CBC #### [facility] [address] [place] [address] Dr. Ekta Rivas #0.8 103/ulNormal0.3-0.8The [facility] HospitalComment on above:Performed By: #### CBC #### [facility] [address] [place] [address] Dr. Ekta Perkinsocytes/100 WBC (Bld)7.0 %Normal1.7-12.0The [facility] Comment on above:Performed By: #### CBC #### [facility] [address] [place] [address] Dr. Ekta Salazar #8.8 103/ulCritically high1.4-6.5The [facility] Comment on above:Performed By: #### CBC #### [facility] [address] [place] [address] Dr. Ekta Dimasutrophils/100 WBC (Bld)74.5 %Hgkbwf43.0-75.0The [facility] HospitalComment on above:Performed By: #### CBC #### [facility] [address] [place] [address] Dr. Ekta Trevino mean volume (Bld) [Entitic vol]9.8 fLNormal9.5-13.5The [facility] HospitalComment on above:Performed By: #### CBC #### [facility] [address] [place] [address] Dr. Ekta FunkPLT203 103/hcRssikg586-306Zgt [facility] HospitalComment on above: Performed By: #### CBC #### [facility] [address] [place] [address] Dr. Ekta FunkRBC3.62 106/ulCritically low4.20-5.40The [facility] HospitalComment on above:Performed By: #### CBC #### [facility] [address] [place] [address] Dr. Ekta FunkWBC11.8 103/ulCritically high4.0-11.0The [facility] HospitalComment on above:Performed By: #### CBC #### [facility] [address] [address] [address] Ekta FunkCULTURE URINEon 82-97-1315GPYLXGK URINECulture Observations: NO GROWTH.NormalThe [facility] HospitalComment on above:Performed By: #### INSULIN #### [facility] [address] [address] [address] Ekta FunkCovid-19 PCR ([facility]FR[facility])on 03-83-6986BUAI-CoV-2 (COVID-19) RNA GANESH+probe Ql (Unsp spec)Not detectedNormalNOT DETECTEDThe [facility] Comment on above:Result Comment: When diagnostic [...] for this test is supported by the [place] of [employer] and Human Service's declaration that [...] used).Performed By: #### B12FOL, VITAD, IRON #### [facility] [address] [address] [address] Ekta AbebeCHOCARDIO M/2D COMPLETEon [id number] M/2D COMPLETE Patient: SHEILA MAC Exam Date: 10/20/2022 : 1950 Gender:F Ordering : DR KRZYSZTOF THOMPSON . Admission #: [id number] Family : Order #: [id number] CLICK HERE TO VIEW EXAM ECHOCARDIOGRAM REPORT [...] by: Sylwia Mckay M.D. on 10/20/2022 at 14:57[facility] OhioPROF 14(COMP METB)on 10-12-0208Rlonfhi [Mass/Vol]2.8 g/dLCritically low 3.4-5.0The [facility] HospitalComment on above:Performed By: #### B12FOL, VITAD, IRON #### [facility] [address] [place] [address] Dr. Ekta FunkAlbumin/Globulin [Mass ratio]0.7 {ratio}NormalThe [facility] HospitalComment on above:Performed By: #### B12FOL, VITAD, IRON #### [facility] [address] [address] [address] Ekta Cowart [Catalytic activity/Vol]84 U/ZFpvemc87-292[facility] on above:Performed By: #### B12FOL, VITAD, IRON #### [facility] [address] [address] [address] Ekta Mccormick [Catalytic activity/Vol]29 U/DPcbiwm60-73Plc [facility] Hospitalment on above:Performed By: #### B12FOL, VITAD, IRON #### [facility] [address] [address] [address] Ekta Mcleodon gap [Moles/Vol]15.9 mmol/LNormalGuernsey Memorial Hospital Comment on above:Performed By: #### B12FOL, VITAD, IRON #### [facility] [address] [place] [address] Dr. Ekta FunkAST [Catalytic activity/Vol]15 U/EUxzkov28-08YbuGuernsey Memorial HospitalComment on above:Performed By: #### B12FOL, VITAD, IRON #### [facility] [address] [place] [address] Dr. Ekta FunkBilirubin [Mass/Vol]0.3 mg/dLNormal0.2-1.0[facility] Comment on above:Performed By: #### B12FOL, VITAD, IRON #### [facility] [address] [place] [address] Dr. Ekta FunkCalcium [Mass/Vol]8.9 mg/dLNormal8.5-10.1[facility] Comment on above:Performed By: #### B12FOL, VITAD, IRON #### [facility] [address] [place] [address] Dr. Ekta FunkChloride [Moles/Vol]103 mmol/XUwvxeh60-980PicGuernsey Memorial Hospital Comment on above:Performed By: #### B12FOL, VITAD, IRON #### [facility] [address] [place] [address] Dr. Ekta FunkCO2 [Moles/Vol]26.3 mmol/EYapxis89.0-32.0[facility] Comment on above:Performed By: #### B12FOL, VITAD, IRON #### [facility] [address] [place] [address] Dr. Ekta FunkCreatinine [Mass/Vol]1.99 mg/dLCritically high0.55-1.02The [facility] HospitalComment on above:Performed By: #### B12FOL, VITAD, IRON #### [facility] [address] [place] [address] Dr. Ekta AbebeGFR-AF JZIZJLFI99 mL/min/1.35y1Haohfydqck low>=60The [facility] HospitalComment on above:Performed By: #### B12FOL, VITAD, IRON #### [facility] [address] [place] [address] Dr. Ekta AbebeGFR-NON AF UOWDMKNW72 mL/min/1.74l5Ubupjuchub low>=60The [facility] HospitalComment on above:Performed By: #### B12FOL, VITAD, IRON #### [facility] [address] [place] [address] Dr. Ekta FunkGlobulin (S) [Mass/Vol]4.1 g/dLNormalThe [facility] HospitalComment on above:Performed By: #### B12FOL, VITAD, IRON #### [facility] [address] [place] [address] Dr. Ekta FunkGlucose [Mass/Vol]115 mg/dLCritically jfbq82-977IpcGuernsey Memorial HospitalComment on above:Performed By: #### B12FOL, VITAD, IRON #### [facility] [address] [place] [address] Dr. Ekta FunkPotassium [Moles/Vol]5.2 mmol/LCritically high3.5-5.1[facility] HospitalComment on above:Performed By: #### B12FOL, VITAD, IRON #### [facility] [address] [place] [address] Dr. Ekta FunkProtein [Mass/Vol]6.9 g/dLNormal6.4-8.2[facility] Comment on above:Performed By: #### B12FOL, VITAD, IRON #### [facility] [address] [place] [address] Dr. Ekta FunkSodium [Moles/Vol]140 mmol/RPwtowo822-650UbrGuernsey Memorial Hospital Comment on above:Performed By: #### B12FOL, VITAD, IRON #### [facility] [address] [address] [address] Ekta Spring nitrogen [Mass/Vol]45.0 mg/dLCritically high7.0-18.0The [facility] HospitalComment on above:Performed By: #### B12FOL, VITAD, IRON #### [facility] [address] [place] [address] Dr. Ekta Spring nitrogen/Creatinine [Mass ratio]22.6 mg/mgNormalThe [facility] HospitalComment on above:Performed By: #### B12FOL, VITAD, IRON #### [facility] [address] [place] [address] Dr. Ekta Cloud4on 26-62-9979L4 [Mass/Vol]6.10 ug/dLNormal4.80-13.90The [facility] HospitalComment on above:Performed By: #### B12FOL, VITAD, IRON #### [facility] [address] [place] [address] Dr. Ekta Carmona 06-01-0811LNH3.336 uIU/mLNormal0.358-3.740The [facility] Hospitalment on above:Performed By: #### B12FOL, VITAD, IRON #### [facility] [address] [place] [address] Dr. Ekta Camejo RANDOM W/MICROSCOPICon 29-00-5547DOGWTOHBLGALUYdreezarTCYQ SEENThe [facility] HospitalComment on above:Performed By: #### B12FOL, VITAD, IRON #### [facility] [address] [place] [address] Dr. Ekta Emeryirubin Ql (U)NegativeNormalNEGATIVEThe [facility] Comment on above:Performed By: #### B12FOL, VITAD, IRON #### [facility] [address] [place] [address] Dr. Ekta Velasquez SEENNormalNONE SEENThe [facility] HospitalComment on above:Performed By: #### B12FOL, VITAD, IRON #### [facility] [address] [place] [address] Dr. Ekta FunkClarity (U)CLEARNormalCLEARGuernsey Memorial HospitalComment on above: Performed By: #### B12FOL, VITAD, IRON #### [facility] [address] [address] [address] Ekta Suttonlor (U)LT. YELLOWNormalYELLOWGuernsey Memorial HospitalComment on above:Performed By: #### B12FOL, VITAD, IRON #### [facility] [address] [address] [address] Ekta FunkCrystals LM Nom (Urine sed)NONE SEENNormalNONE SEENGuernsey Memorial HospitalComment on above:Performed By: #### B12FOL, VITAD, IRON #### [facility] [address] [place] [address] Dr. Dash ChangEpithelial cells LM Ql (Urine sed)RARENormalNONE SEEN /RAREThe [facility] HospitalComment on above:Performed By: #### B12FOL, VITAD, IRON #### [facility] [address] [place] [address] Dr. Ekta FunkGlucose Ql (U)NegativeNormalNEGATIVEGuernsey Memorial HospitalComment on above:Performed By: #### B12FOL, VITAD, IRON #### [facility] [address] [place] [address] Dr. Ekta FunkHemoglobin Ql (U)NegativeNormalNEGATIVEGuernsey Memorial Hospital Comment on above:Performed By: #### B12FOL, VITAD, IRON #### [facility] [address] [place] [address] Dr. Ekta FunkKetones Ql (U)NegativeNormalNEGATIVEGuernsey Memorial HospitalComment on above:Performed By: #### B12FOL, VITAD, IRON #### [facility] [address] [place] [address] Dr. Ekta FunkLEUKOCYTESNegativeNormalNEGATIVEGuernsey Memorial HospitalComment on above:Performed By: #### B12FOL, VITAD, IRON #### [facility] [address] [address] [address] Ekta BlantonUSJAMIE SEENNormalNONE SEENGuernsey Memorial HospitalComment on above:Performed By: #### B12FOL, VITAD, IRON #### [facility] [address] [address] [address] Ekta Long Ql (U)NegativeNormalNEGATIVEThe [facility] HospitalComment on above:Performed By: #### B12FOL, VITAD, IRON #### [facility] [address] [address] [address] Ekta FunkpH (U)6.0 [pH]Normal5-9The [facility] HospitalComment on above: Performed By: #### B12FOL, VITAD, IRON #### [facility] [address] [place] [address] Dr. Ekta FunkBbubjKHM6-9Kjzgtl1-1Tmb [facility] HospitalComment on above:Performed By: #### B12FOL, VITAD, IRON #### [facility] [address] [place] [address] Dr. Ekta FunkSPEC GRAVITY<=1.502Bkeycsxn0.005-<=1.025The [facility] Comment on above:Performed By: #### B12FOL, VITAD, IRON #### [facility] [address] [place] [address] Dr. Ekta Camejo PROTEINNegativeNormalNEGATIVE/ TRACEThe [facility] Comment on above:Performed By: #### B12FOL, VITAD, IRON #### [facility] [address] [place] [address] Dr. Ekta Lugo Qn (U)0.2 {Ivan'U}/dLNormal0.2 - 1.0The [facility] HospitalComment on above:Performed By: #### B12FOL, VITAD, IRON #### [facility] [address] [place] [address] Dr. Ekta LeonardoBCJAMIE SEENNormalNONE SEENThe [facility] HospitalComment on above: Performed By: #### B12FOL, VITAD, IRON #### [facility] [address] [address] [address] Ekta LopezPon 59-39-1728Jlalfaicogq peptide B (Bld) [Mass/Vol]1355.0 pg/mLCritically high<=900.0The [facility] HospitalComment on above:Performed By: #### B12FOL, VITAD, IRON #### [facility] [address] [address] [address] Ekta FunkINSULINon 87-36-4592Sfplrxf54.4 uIU/mLNormal2.6-24.9The [facility] HospitalComment on above:Performed By: #### INSULIN #### [facility] [address] [place] [address] Dr. Ekta FunkOCC BLD IMMUNO SCREENon 72-58-8802JFQING BLOODPositiveAbnormal NEGATIVEThe [facility] HospitalComment on above:Performed By: #### B12FOL, VITAD, IRON #### [facility] [address] [place] [address] Dr. Ekta FunkPROF CHEM 8 (BAS METB)on 98-13-1550Erywo gap [Moles/Vol]15.8 mmol/LNormalGuernsey Memorial HospitalComment on above:Performed By: #### B12FOL, VITAD, IRON #### [facility] [address] [place] [address] Dr. Ekta FunkCalcium [Mass/Vol]8.8 mg/dLNormal8.5-10.1The [facility] Comment on above:Performed By: #### B12FOL, VITAD, IRON #### [facility] [address] [place] [address] Dr. Ekta FunkChloride [Moles/Vol]107 mmol/BLepsdq78-622Kbn [facility] Comment on above:Performed By: #### B12FOL, VITAD, IRON #### [facility] [address] [place] [address] Dr. Ekta FunkCO2 [Moles/Vol]21.5 mmol/SKxewix52.0-32.0The [facility] Comment on above:Performed By: #### B12FOL, VITAD, IRON #### [facility] [address] [address] [address] Ekta FunkCreatinine [Mass/Vol]1.62 mg/dLCritically high0.55-1.02The [facility] HospitalComment on above:Performed By: #### B12FOL, VITAD, IRON #### [facility] [address] [place] [address] Dr. Ekta AbebeGFR-AF JCNZCLAD67 mL/min/1.73h2Bownejpfmd low>=60The [facility] HospitalComment on above:Performed By: #### B12FOL, VITAD, IRON #### [facility] [address] [place] [address] Dr. Ekta AbebeGFR-NON AF QDZNYBOA13 mL/min/1.80m1Anojbjvocs low>=60The [facility] HospitalComment on above:Performed By: #### B12FOL, VITAD, IRON #### [facility] [address] [place] [address] Dr. Ekta FunkGlucose [Mass/Vol]134 mg/dLCritically tzau85-167Lvg [facility] HospitalComment on above:Performed By: #### B12FOL, VITAD, IRON #### [facility] [address] [place] [address] Dr. Ekta FunkPotassium [Moles/Vol]5.3 mmol/LCritically high3.5-5.1The [facility] HospitalComment on above:Performed By: #### B12FOL, VITAD, IRON #### [facility] [address] [place] [address] Dr. Ekta FunkSodium [Moles/Vol]139 mmol/ADkzbxk935-018Uys [facility] Comment on above:Performed By: #### B12FOL, VITAD, IRON #### [facility] [address] [place] [address] Dr. Ekta FunkUrea nitrogen [Mass/Vol]37.0 mg/dLCritically high7.0-18.0The [facility] HospitalComment on above:Performed By: #### B12FOL, VITAD, IRON #### [facility] [address] [place] [address] Dr. Ekta Spring nitrogen/Creatinine [Mass ratio]22.8 mg/mgNormalThe [facility] HospitalComment on above:Performed By: #### B12FOL, VITAD, IRON #### [facility] [address] [place] [address] Dr. Ekta Rich, HIGH SENSITIVITYon 14-46-5273GJBEIT30.2 pg/mLCritically high4.0-51.3TTogus VA Medical CenterComment on above:Result Comment: CUT-OFF POINTS HAVE BEEN ESTABLISHED BASED ON THE FOURTH UNIVERSAL DEFINITIONS OF MYOCARDIAL INFARCTION. THE UPPER REFERENCE LIMIT (URL) OF TROPONIN, DEFINED THE 99TH PERCENTILE OF cTnI DISTRIBUTION IN A REFERENCE POPULATION, HAS BEEN CONFIRMED THE DECISION THRESHOLD FOR VA DIAGNOSIS.Performed By: #### B12FOL, VITAD, IRON #### [facility] [address] [place] [address] Dr. Ekta Vaughan 08-39-5301Njiqefejtrq peptide B (Bld) [Mass/Vol]1386.0 pg/mLCritically high<=900.0The [facility] HospitalComment on above:Performed By: #### CVDTBH #### [facility] [address] [place] [address] Dr. Ekta Hale BRITTANIE ADMITon 18-49-0180MR [Catalytic activity/Vol]34 U/L Dpuabo14-806GvtGuernsey Memorial HospitalComment on above:Performed By: #### CVDTBH #### [facility] [address] [place] [address] Dr. Ekta Howell.MB [Mass/Vol]1.43 ng/mLNormal<=3.60[facility] Comment on above:Performed By: #### CVDTBH #### [facility] [address] [place] [address] Dr. Ekta FunkHSTROP74.1 pg/mLCritically high4.0-51.3TTogus VA Medical Center Comment on above:Result Comment: CUT-OFF POINTS HAVE BEEN ESTABLISHED BASED ON THE FOURTH UNIVERSAL DEFINITIONS OF MYOCARDIAL INFARCTION. THE UPPER REFERENCE LIMIT (URL) OF TROPONIN, DEFINED THE 99TH PERCENTILE OF cTnI DISTRIBUTION IN A REFERENCE POPULATION, HAS BEEN CONFIRMED THE DECISION THRESHOLD FOR VA DIAGNOSIS.Performed By: #### CVDTBH #### [facility] [address] [place] [address] Dr. Ekta CampO52 ng/mLNormal9-82The [facility] HospitalComment on above: Performed By: #### CVDTBH #### [facility] [address] [place] [address] Dr. Ekta Agarwal AUTO DIFFon 42-71-9815FVMF #0.0 103/ulNormal0.0-0.1The [facility] HospitalComment on above:Performed By: #### CBC #### [facility] [address] [place] [address] Dr. Ekta FunkBasophils/100 WBC (Bld)0.3 %Normal0.2-2.0[facility] Comment on above:Performed By: #### CBC #### [facility] [address] [place] [address] Dr. Ekta Anthony #0.1 103/ulNormal0.0-0.7The [facility] HospitalComment on above: Performed By: #### CBC #### [facility] [address] [place] [address] Dr. Ekta Abebeosinophils/100 WBC (Bld)0.9 %Normal0.9-7.0[facility] Comment on above:Performed By: #### CBC #### [facility] [address] [place] [address] Dr. Ekta Abeberythrocyte distribution width (RBC) [Ratio]13.2 %Nbtdxm88.0-15.0 [facility] HospitalComment on above:Performed By: #### CBC #### [facility] [address] [place] [address] Dr. Ekta FunkHematocrit (Bld) [Volume fraction]38.9 %Khfabf47.0-48.0The [facility] HospitalComment on above:Performed By: #### CBC #### [facility] [address] [address] [address] Ekta FunkHemoglobin (Bld) [Mass/Vol]12.4 g/pXGkueud61.0-16.0The [facility] HospitalComment on above:Performed By: #### CBC #### [facility] [address] [place] [address] Dr. Ekta Olivares #0.08 10e3/ulCritically high0.00-0.03The [facility] Comment on above:Performed By: #### CBC #### [facility] [address] [place] [address] Dr. Ekta Olivares %0.5 %Normal0.0-0.5The [facility] HospitalComment on above: Performed By: #### CBC #### [facility] [address] [place] [address] Dr. Ekta Putnam #1.4 103/ulNormal1.2-3.8The [facility] HospitalComment on above:Performed By: #### CBC #### [facility] [address] [place] [address] Dr. Ekta Lundberghocytes/100 WBC (Bld)9.6 %Critically low20.5-60.0The [facility] HospitalComment on above:Performed By: #### CBC #### [facility] [address] [place] [address] Dr. Ekta MaloneUAL DIFF REQNONormalThe [facility] HospitalComment on above: Performed By: #### CBC #### [facility] [address] [place] [address] Dr. Ekta Oconnor (RBC) [Entitic mass]32.3 dsZvangc50.7-34.0The [facility] HospitalComment on above:Performed By: #### CBC #### [facility] [address] [place] [address] Dr. Ekta Oconnor (RBC) [Mass/Vol]31.9 g/hAQvcghs95.9-35.2The [facility] HospitalComment on above:Performed By: #### CBC #### [facility] [address] [address] [address] Ekta OconnorV (RBC) [Entitic vol]101.3 fLCritically high81.0-99.0The [facility] HospitalComment on above:Performed By: #### CBC #### [facility] [address] [address] [address] Ekta Rivas #0.9 103/ulCritically high0.3-0.8The [facility] Comment on above:Performed By: #### CBC #### [facility] [address] [address] [address] Ekta Perkinsocytes/100 WBC (Bld)6.3 %Normal1.7-12.0[facility] Comment on above:Performed By: #### CBC #### [facility] [address] [place] [address] Dr. Ekta DimasUT #12.0 103/ulCritically high1.4-6.5The [facility] Comment on above:Performed By: #### CBC #### [facility] [address] [place] [address] Dr. Ekta Dimasutrophils/100 WBC (Bld)82.4 %Critically high43.0-75.0The [facility] HospitalComment on above:Performed By: #### CBC #### [facility] [address] [place] [address] Dr. Ekta Salomonlet mean volume (Bld) [Entitic vol]9.7 fLNormal9.5-13.5The [facility] HospitalComment on above:Performed By: #### CBC #### [facility] [address] [place] [address] Dr. Ekta FunkPLT176 103/grRmjqhg201-724Vnv [facility] HospitalComment on above: Performed By: #### CBC #### [facility] [address] [place] [address] Dr. Ekta FunkRBC3.84 106/ulCritically low4.20-5.40The [facility] HospitalComment on above:Performed By: #### CBC #### [facility] [address] [address] [address] Ekta FunkWBC14.6 103/ulCritically high4.0-11.0The [facility] HospitalComment on above:Performed By: #### CBC #### [facility] [address] [address] [address] Ekta Correa THYROXINE INDEX T7on 08-77-3607NOO6.52Svlgcl9.30-4.50The [facility] HospitalComment on above:Performed By: #### CVDTBH #### [facility] [address] [address] [address] Ekta FunkT3U36.0 %Bdglst01.0-39.0The [facility] HospitalComment on above: Performed By: #### CVDTBH #### [facility] [address] [address] [address] Ekta FunkT4 [Mass/Vol]6.50 ug/dLNormal4.80-13.90The [facility] Comment on above:Performed By: #### CVDTBH #### [facility] [address] [address] [address] Ekta FunkGLYCOHEMOGLOBIN A1Con 86-40-4201WGE RECOMMENDATIONSEE BELOWNormal The [facility] HospitalCommymichigan medical center on above:Result Comment: ADA RECOMMENDED LIMIT 4.0 - 6.0 ADA THERAPEUTIC TARGET < 7.0 ACTION SUGGESTED > 7.0Performed By: #### B12FOL, VITAD, IRON #### [facility] [address] [place] [address] Dr. Ekta FunkGlucose [Mass/Vol]140 mg/dLNormalThe [facility] HospitalComment on above:Performed By: #### B12FOL, VITAD, IRON #### [facility] [address] [place] [address] Dr. Ekta FunkHbA1c (Bld) [Mass fraction]6.5 %Critically high4.5-6.2The [facility] HospitalComment on above:Performed By: #### B12FOL, VITAD, IRON #### [facility] [address] [address] [address] Ekta Shannon 32-25-7996Udmh [Mass/Vol]62.0 ug/aBYgolir44.0-170.0The [facility] on above:Performed By: #### B12FOL, VITAD, IRON #### [facility] [address] [address] [address] Ekta FunkLIPID PROFILEon 61-61-3038YTOZ-HDL RATIO NORMSEE [facility] SouthCommymichigan medical center on above:Result Comment: 3.3 - 4.4 LOW RISK 4.4 - 7.1 AVERAGE RISK 7.1 - 11.0 MODERATE RISK >11.0 HIGH RISKPerformed By: #### CVDTBH #### [facility] [address] [place] [address] Dr. Ekta FunkCholesterol [Mass/Vol]242 mg/dLCritically high<=200The [facility] on above:Performed By: #### CVDTBH #### [facility] [address] [address] [address] Ekta FunkCholesterol in HDL [Mass/Vol]74 mg/dLCritically miri72-60[facility] on above:Performed By: #### CVDTBH #### [facility] [address] [place] [address] Dr. Ekta FunkCholesterol in LDL [Mass/Vol]139.4 mg/dLMercy Health St. [facility] on above:Performed By: #### CVDTBH #### [facility] [address] [place] [address] Dr. Ekta Tejedaestertracy.total/Cholesterol in HDL [Mass ratio]3.3 {ratio} NormalThe [facility] on above:Performed By: #### CVDTBH #### [facility] [address] [place] [address] Dr. Ekta FunkHDHu NORMAL> or = 60 mg/dl - LOW CARDIOVASCULAR RISK <40 mg/dl - HIGH CARDIOVASCULAR RISKKing's Daughters Medical Center OhioComment on above:Performed By: #### CVDTBH #### [facility] [address] [address] [address] Ekta Navarro CALC NORMALSEE BELOWNoFulton County Health CenterComment on above:Result Comment: <100 mg/dl OPTIMAL 100 - 129 mg/dl NEAR OR ABOVE OPTIMAL 130 - 159 mg/dl BORDERLINE HIGH 160 - 189 mg/dl HIGH >190 mg/dl VERY HIGH Performed By: #### CVDTBH #### [facility] [address] [address] [address] Ekta FunkTriglyceride [Mass/Vol]143 mg/dLNormal<=150The [facility] Comment on above:Performed By: #### CVDTBH #### [facility] [address] [place] [address] Dr. Ekta AnneLDL CALC28.6 mg/dLNoFulton County Health CenterComment on above: Performed By: #### CVDTBH #### [facility] [address] [address] [address] Ekta FunkPROF 14(COMP METB)on 12-12-4051Anlyyro [Mass/Vol]2.8 g/dL Critically low3.4-5.0The [facility] on above:Performed By: #### CVDTBH #### [facility] [address] [place] [address] Dr. Ekta FunkAlbumin/Globulin [Mass ratio]0.7 {ratio}NormalThe [facility] HospitalComment on above:Performed By: #### CVDTBH #### [facility] [address] [place] [address] Dr. Ekta Cowart [Catalytic activity/Vol]90 U/TEplvut88-886Qzo [facility] HospitalCommymichigan medical center on above:Performed By: #### CVDTBH #### [facility] [address] [place] [address] Dr. Ekta Mccormick [Catalytic activity/Vol]26 U/QFnrruo14-95Tsb [facility] on above:Performed By: #### CVDTBH #### [facility] [address] [address] [address] Ekta FunkAnion gap [Moles/Vol]14.5 mmol/LNormalGuernsey Memorial Hospital Comment on above:Performed By: #### CVDTBH #### [facility] [address] [address] [address] Ekta FunkAST [Catalytic activity/Vol]14 U/LCritically uqb13-70Syz [facility] HospitalComment on above:Performed By: #### CVDTBH #### [facility] [address] [place] [address] Dr. Ekta FunkBilirubin [Mass/Vol]0.4 mg/dLNormal0.2-1.0[facility] Comment on above:Performed By: #### CVDTBH #### [facility] [address] [place] [address] Dr. Ekta FunkCalcium [Mass/Vol]8.9 mg/dLNormal8.5-10.1[facility] Comment on above:Performed By: #### CVDTBH #### [facility] [address] [address] [address] Ekta FunkChloride [Moles/Vol]106 mmol/NUmhkuo09-459OlmGuernsey Memorial Hospital Comment on above:Performed By: #### CVDTBH #### [facility] [address] [place] [address] Dr. Ekta FunkCO2 [Moles/Vol]23.5 mmol/BYapymx73.0-32.0The [facility] Comment on above:Performed By: #### CVDTBH #### [facility] [address] [address] [address] Ekta FunkCreatinine [Mass/Vol]1.70 mg/dLCritically high0.55-1.02The [facility] HospitalComment on above:Performed By: #### CVDTBH #### [facility] [address] [address] [address] Dash ChangEGFR-AF PQPKJDYX19 mL/min/1.35i3Djhsxcjvqg low>=60The [facility] HospitalComment on above:Performed By: #### CVDTBH #### [facility] [address] [address] [address] Ekta AbebeGFR-NON AF UCAHNANB35 mL/min/1.94q1Hkbhaqlyds low>=60The [facility] HospitalComment on above:Performed By: #### CVDTBH #### [facility] [address] [address] [address] Ekta FunkGlobulin (S) [Mass/Vol]4.0 g/dLNormalThBerger HospitalComment on above:Performed By: #### CVDTBH #### [facility] [address] [address] [address] Ekta FunkGlucose [Mass/Vol]99 mg/lGTyvnzn79-104NhkGuernsey Memorial Hospital Comment on above:Performed By: #### CVDTBH #### [facility] [address] [address] [address] Etka FunkPotassium [Moles/Vol]5.0 mmol/LNormal3.5-5.1The [facility] Comment on above:Performed By: #### CVDTBH #### [facility] [address] [address] [address] Ekta FunkProtein [Mass/Vol]6.8 g/dLNormal6.4-8.2[facility] Comment on above:Performed By: #### CVDTBH #### [facility] [address] [address] [address] Ekta FunkSodium [Moles/Vol]139 mmol/HKlkscl855-947SniGuernsey Memorial Hospital Comment on above:Performed By: #### CVDTBH #### [facility] [address] [address] [address] Ekta FunkUrea nitrogen [Mass/Vol]36.0 mg/dLCritically high7.0-18.0The [facility] HospitalComment on above:Performed By: #### CVDTBH #### [facility] [address] [address] [address] Ekta FunkUrea nitrogen/Creatinine [Mass ratio]21.2 mg/mgNormalThe [facility] HospitalComment on above:Performed By: #### CVDTBH #### [facility] [address] [place] [address] Dr. Ekta Carmona 29-53-9570FTP8.910 uIU/mLNormal0.358-3.740The [facility] on above:Performed By: #### CVDTBH #### [facility] [address] [place] [address] Dr. Ekta FunkCovid-19 PCR ([facility])on 67-75-9753EATB-CoV-2 (COVID-19) RNA GANESH+probe Ql (Unsp spec)DetectedAbnormalNOT DETECTEDThe [facility] on above:Result Comment: This test is not yet approved or cleared by the [place] FDA. When there are no FDA-approved or cleared tests available, and other criteria are met, FDA can make tests available under an emergency access mechanism called an Emergency Use Authorization (EUA). The EUA for this test is supported by the [place] of Health and Human Service's declaration that [...] longer be used).Performed By: #### CMP #### [facility] [address] [place] [address] Dr. Ekta FunkINFLNGHIANZA A AND B AGon 40-95-8944VBDPIBQWCLTIP [facility] on above:Result Comment: Negative for Flu A protein angiten. Infection due to Flu A cannot be ruled out. FluA angiten in the sample may be below the detection limit of the test.Performed By: #### B12FOL, VITAD, IRON #### [facility] [address] [place] [address] Dr. Ekta FunkINFLUBNEGHSEE [facility] on above: Result Comment: Negative for Flu B protein antigen. Infection due to Flu B cannot be ruled out. FluB antigen in the sample may be below the detection limit of the test.Performed By: #### B12FOL, VITAD, IRON #### [facility] [address] [place] [address] Dr. Ekta Arguelles AGNegativeNormalNEGATIVE SEE COMMENTThe [facility] HospitalComment on above:Performed By: #### B12FOL, VITAD, IRON #### [facility] [address] [address] [address] Ekta Rojas AGNegativeNormalNEGATIVE SEE COMMENTThe [facility] HospitalComment on above:Performed By: #### B12FOL, VITAD, IRON #### [facility] [address] [place] [address] Dr. Ekta Woody CAROTID ART BILon 30-53-5108DK CAROTID ART BILEXAMINATION: US CAROTID ART ANGELIQUE [...] Electronically authenticated by: GODWIN BECK Date: 2022-05-26 16:[address] [place], [place] [address]MRI BRAIN WO CONon 15-01-3776ZTS BRAIN WO CONEXAMINATION: MRI BRAIN WO CON, [...] Electronically authenticated by: DANIEL PINEDA Date: 2022-05-25 10:[address] [place], [place] [address]ECHOCARDIO M/2D COMPLETEon [id number] M/2D COMPLETE Patient: SHEILA MAC Exam Date: 05/24/2022 : 1950 Gender:F Ordering : DR KRZYSZTOF THOMPSON . Admission #: [id number] Family : Order #: [id number] CLICK HERE TO VIEW EXAM ECHOCARDIOGRAM REPORT [...] by: Sylwia Mckay M.D. on 05/24/2022 at 14:45The [facility] METABOLIC PANELon 77-44-6612Fwahqrr mass conc9.4 mg/dLNormal 8.6-10.3The [facility] [place] [facility] HospitalComment on above:Order Comment: No: Do not add to previous drawPerformed By: #### [id number] #### [facility] [address] [place] [address], USAChloride molar hnnu889 mmol/KMcxi06-290Jmo [facility] [place] [facility] HospitalComment on above:Order Comment: No: Do not add to previous drawPerformed By: #### [id number] #### [facility] [address] [place] [address], [place]ACO2 molar conc22 mmol/LYimeel00-02Ihr [facility] [place] [facility] HospitalComment on above:Order Comment: No: Do not add to previous draw Performed By: #### [id number] #### [facility] [address] [place] [address], USACreatinine mass conc1.18 mg/dLNormal0.60-1.20The [facility] [place] [facility] HospitalComment on above:Order Comment: No: Do not add to previous drawPerformed By: #### [id number] #### [facility] [address] [place] [address], USAGFR/1.73 sq M predicted among blacks MDRD vol rate/area (S/P/Bld)55 ml/min/1.73sq mAbnormal>60The [facility] Comment on above:Order Comment: No: Do not add to previous drawPerformed By: #### [id number] #### [facility] [address] [place] [address], USAGFR/1.73 sq M predicted among non-blacks MDRD vol rate/area (S/P/Bld)45 ml/min/1.73sq mAbnormal>60The [facility] Comment on above:Order Comment: No: Do not add to previous drawPerformed By: #### [id number] #### [facility] [address] [place] [address], USAGlucose mass ltok203 mg/kNTzbw10-283Yne [facility] [place] [facility] HospitalComment on above:Order Comment: No: Do not add to previous drawPerformed By: #### [id number] #### [facility] [address] [place] [address], USAPotassium molar conc4.1 mmol/LNormal3.5-5.1The [facility] [place] [facility] HospitalComment on above:Order Comment: No: Do not add to previous drawPerformed By: #### [id number] #### [facility] [address] [place] [address], USASodium molar vhsk949 mmol/XPavyty859-055Dxa [facility] [place] [facility] HospitalComment on above:Order Comment: No: Do not add to previous drawPerformed By: #### [id number] #### [facility] [address] [place] [address], USAUrea nitrogen mass conc21 mg/dLNormal7-25The [facility] [place] [facility] HospitalComment on above:Order Comment: No: Do not add to previous drawPerformed By: #### [id number] #### [facility] [address] [place] [address], USACBC COMPLETE BLOOD COUNTon 77-82-0733Zzoxnmhuhrs distribution width Ratio (RBC)12.9 %Osmzce29.5-15.0The [facility] [place] [facility] HospitalComment on above:Order Comment: No: Do not add to previous draw Performed By: #### [id number] #### [facility] [address] [facility] [place] [address], USAHematocrit Volume Fraction (Bld)36.7 %Diohyc60.0-45.0The [facility] [place] [facility] HospitalComment on above:Order Comment: No: Do not add to previous drawPerformed By: #### [id number] #### [facility] [address] [place] [address], USAHemoglobin mass conc (Bld)12.4 g/vMRxpufe20.0-15.0The [facility] [place] [facility] HospitalComment on above:Order Comment: No: Do not add to previous drawPerformed By: #### [id number] #### [facility] [address] [place] [address], [facility] Entitic mass (RBC)31.2 vfFrwnir04.0-33.0The [facility] [place] [facility] HospitalComment on above:Order Comment: No: Do not add to previous drawPerformed By: #### [id number] #### [facility] [address] [place] [address], [facility] mass conc (RBC)33.8 g/tYNhguti35.0-35.0The [facility] [place] [facility] HospitalComment on above:Order Comment: No: Do not add to previous drawPerformed By: #### [id number] #### [facility] [address] [place] [address], [facility] Entitic volume (RBC)92.4 pQHwhfpd89.0-98.0The [facility] [place] [facility] HospitalComment on above:Order Comment: No: Do not add to previous drawPerformed By: #### [id number] #### [facility] [address] [place] [address], RUSTNucleated RBC/100 WBC Ratio (Bld)0 %Normal0-0The [facility] [place] [facility] HospitalComment on above:Order Comment: No: Do not add to previous drawPerformed By: #### [id number] #### [facility] [address] [place] [address], USAPLAT [id number] 10*3/yEYaazrw321-479Jqe [facility] [place] [facility] HospitalComment on above:Order Comment: No: Do not add to previous draw Performed By: #### [id number] #### [facility] [address] [place] [address], RUSTRBC #/vol (Bld)3.97 10*6/uLNormal3.80-5.00The [place] [facility] HospitalComment on above:Order Comment: No: Do not add to previous drawPerformed By: #### [id number] #### [facility] [address] [place] [address], RUSTWBC #/vol (Bld)5.55 10*3/uLNormal4.00-10.60The [place] [facility] HospitalComment on above:Order Comment: No: Do not add to previous drawPerformed By: #### [id number] #### [facility] [address] [facility] [place] [address], RUSTCardiovascular Lab Reporton [id number] Lab ReportUnHolzer Medical Center – [facility] Patient Name: Bubba [facility] Sheila MR #: [id number] Department of Physician: [facility] Shellie Gaspar M.D. Division of Service Date: 11/20/2018 Cardiology Birthdate: 1950 Adult Cardiovascular Room #: 3AB [id number] [facility] [address] [place] [address] Cardiovascular Laboratory Report INDICATION: The patient is a 68-year-old woman who was evaluated in Cardiology Clinic because of new onset symptoms of shortness of breath on mild exertion. Her stress test showed evidence of rwjyb-gh-viukcwej area of inferoapical ischemia; because of that, she was referred for cardiac catheterization. PROCEDURES: 1. Right heart catheterization. 2. Bilateral selective coronary angiography. 3. Limited right femoral angiography. METHOD: Procedure was explained patient with risks and benefits. She signed informed consent. She was brought to laboratory geneticist in a fasting state. The right groin area was prepped and draped in usual fashion. Using micropuncture technique, the right common femoral artery was accessed. The inner cannula was advanced. Limited femoral angiography was performed followed by upsizing to a 6-Afghan x 11 cm sheath. Access was also obtained using the same technique in the right common femoral vein and a 6-Afghan x 11 cm sheath was placed. A 6-Afghan Michel catheter was used for right heart catheterization with measurement of pressures and calculation of cardiac output using the estimated Ivory method. Michel catheter was removed. Bilateral selective coronary angiography was then performed using 6-Afghan JL4 and JR4 diagnostic catheters. Catheters were [...] Gaspar M.D. Date Trans: 11/20/2018 09:31 A/alvina DN_JN:[id number] cc: Krzysztof Thompson M.D. [place] [address] [facility] [place] [address]AlslkhTfkKettering Health – Soin Medical CenterBASIC METABOLIC PANELon 10-69-3406Bkabuhk mass conc9.5 mg/dLNormal8.6-10.3The [place] [facility] HospitalComment on above:Order Comment: No: Do not add to previous drawPerformed By: #### [id number] #### [facility] [address] [place] [address], USAChloride molar pjlp966 mmol/FUzhrcx73-430Yeb [facility] [place] [facility] HospitalComment on above:Order Comment: No: Do not add to previous drawPerformed By: #### [id number] #### [facility] [address] [place] [address], USACO2 molar conc24 mmol/YDabtxx33-21Ytd [facility] [place] [facility] HospitalComment on above:Order Comment: No: Do not add to previous draw Performed By: #### [id number] #### [facility] [address] [place] [address], USACreatinine mass conc1.42 mg/dLHigh0.60-1.20The [place] [facility] HospitalComment on above:Order Comment: No: Do not add to previous drawPerformed By: #### [id number] #### [facility] [address] [place] [address], USAGFR/1.73 sq M predicted among blacks MDRD vol rate/area (S/P/Bld)45 ml/min/1.73sq mAbnormal>60The [facility] [place] [facility] Comment on above:Order Comment: No: Do not add to previous drawPerformed By: #### [id number] #### [facility] [address] [place] [address], USAGFR/1.73 sq M predicted among non-blacks MDRD vol rate/area (S/P/Bld)36 ml/min/1.73sq mAbnormal>60The [facility] [place] [facility] Comment on above:Order Comment: No: Do not add to previous drawPerformed By: #### [id number] #### [facility] [address] [place] [address], USAGlucose mass conc86 mg/aJBqwynr39-116Yxr [facility] [place] [facility] HospitalComment on above:Order Comment: No: Do not add to previous drawPerformed By: #### [id number] #### [facility] [address] [place] [address], USAPotassium molar conc4.2 mmol/LNormal3.5-5.1The [place] [facility] HospitalComment on above:Order Comment: No: Do not add to previous drawPerformed By: #### [id number] #### [facility] [address] [place] [address], USASodium molar ehpi764 mmol/VFndpon399-711Ffi [facility] [place] [facility] HospitalComment on above:Order Comment: No: Do not add to previous drawPerformed By: #### [id number] #### [facility] [address] [place] [address], USAUrea nitrogen mass conc19 mg/dLNormal7-25The [place] [facility] HospitalComment on above:Order Comment: No: Do not add to previous drawPerformed By: #### [id number] #### [facility] [address] [place] [address], USACBC COMPLETE BLOOD COUNTon 48-72-3563Wbzjiyatzit distribution width Ratio (RBC)13.0 %Oyfrtl99.5-15.0The [place] [facility] HospitalComment on above:Order Comment: No: Do not add to previous draw Performed By: #### [id number] #### [facility] [address] [place] [address], USAHematocrit Volume Fraction (Bld)38.3 %Mzears20.0-45.0The [place] [facility] HospitalComment on above:Order Comment: No: Do not add to previous drawPerformed By: #### [id number] #### [facility] [address] [place] [address], USAHemoglobin mass conc (Bld)12.6 g/uHUekwmk51.0-15.0The [place] [facility] HospitalComment on above:Order Comment: No: Do not add to previous drawPerformed By: #### [id number] #### [facility] [address] [place] [address], [facility]H Entitic mass (RBC)31.1 epRaheqz54.0-33.0The [place] [facility] HospitalComment on above:Order Comment: No: Do not add to previous drawPerformed By: #### [id number] #### [facility] [address] [place] [address], [facility] CL[facility]HC mass conc (RBC)32.9 g/vXRpsndq41.0-35.0The [place] [facility] HospitalComment on above:Order Comment: No: Do not add to previous drawPerformed By: #### [id number] #### [facility] [address] [facility] [place] [address], [facility] CLAREMOREV Entitic volume (RBC)94.6 kUDkmndk31.0-98.0The [place] [facility] HospitalComment on above:Order Comment: No: Do not add to previous drawPerformed By: #### [id number] #### [facility] [address] [facility] [place] [address], RUSTNucleated RBC/100 WBC Ratio (Bld)0 %Normal0-0The [place] [facility] HospitalComment on above:Order Comment: No: Do not add to previous drawPerformed By: #### [id number] #### [facility] [address] [facility] [place] [address], RUSTPLAT WQF858 10*3/cXVsmlqn269-253Jof [facility] [place] [facility] HospitalComment on above:Order Comment: No: Do not add to previous draw Performed By: #### [id number] #### [facility] [address] [facility]. [place] [id number], RUSTRBC #/vol (Bld)4.05 10*6/uLNormal3.80-5.00The [place] [facility] HospitalComment on above:Order Comment: No: Do not add to previous drawPerformed By: #### [id number] #### [facility] [address] [place] [address], USAWBC #/vol (Bld)9.01 10*3/uLNormal4.00-10.60The [place] [facility] HospitalComment on above:Order Comment: No: Do not add to previous drawPerformed By: #### [id number] #### [facility] [address] [place] [address], USAPROTHROMBIN TIMEon 28-19-3291GQD Coag RelTime (PPP)1.07 {INR}Normal0.91-1.16The [place] [facility] HospitalComment on above: Order Comment: No: Do [...] OPTIMAL THERAPEUTIC RANGE. CHEST 1995;108:231S-246S.Performed By: #### [id number] #### [facility] [address] [place] [address], USAProthrombin time (PT) Coag time (PPP)13.9 gGwfphi22.3-14.8 The [place] [facility] HospitalComment on above:Order Comment: No: Do not add to previous drawResult Comment: ALL RESULTS MUST BE INTERPRETED WITH RESPECT TO BLOOD DRAWING ARTIFACT OR DILUTION ERROR OF ANTICOAGULANT AT THE TIME OF SAMPLING.Performed By: #### [id number] #### [address] Vital Signs Date TimeVital SignValuePerforming CcysnlpmxHmailibz52-68-8515 10:08-0400Body .6 cmKaitlin Macdonald WRAPPER HANDS SPRAYER-CONTACT LENS ASSISTANT Work Phone: [facility]10-14-2025 10:08-0400Body mass index (BMI) [Ratio]20.36 kg/t3PhxnwldKaitlin Macdonald WRAPPER HANDS SPRAYER-CONTACT LENS ASSISTANT Work Phone: [facility]10-14-2025 10:08-0400Body vyautm79.8 kgKaitlin Macdonald WRAPPER HANDS SPRAYER-CONTACT LENS ASSISTANT Work Phone: [facility]10-14-2025 10:08-0400Diastolic blood tiflvziz27 mm[Hg]Kaitlin Macdonald WRAPPER HANDS SPRAYER-CONTACT LENS ASSISTANT Work Phone: [facility]10-14-2025 10:08-0400Heart rate 66 /minKaitlin Macdonald WRAPPER HANDS SPRAYER-CONTACT LENS ASSISTANT Work Phone: [facility]10-14-2025 10:08-0400Systolic blood mm[Hg]Kaitlin Macdonald WRAPPER HANDS SPRAYER-CONTACT LENS ASSISTANT Work Phone: [facility]07-17-2025 14:35-0400Body rofaqi604.48 cmKrzysztof Thompson MD Work Phone: [facility]07-17-2025 14:35-0400 Body mass index (BMI) [Ratio]21.7 kg/r4GxwbfdkKrzysztof Thompson MD Work Phone: 1(386)750-[address] [place], [place] [address]7-17-2025 14:35-0400 Body iqltty93.97 kgKrzysztof Thompson MD Work Phone: 1([phone])034-[address] [place], [place] 6504806-12-2025 14:50-0400 Body yptgvs47.2 kgKrzysztof Thompson MD Work Phone: [phone])436-[address] [place], [place] 650[address]4-17-2025 10:07-0400 Body .6 cmKaitlin Macdonald WRAPPER HANDS SPRAYER-CONTACT LENS ASSISTANT Work Phone: [facility] [employer] Bbsxzh09-48-9291 10:07-0400Body mass index (BMI) [Ratio]21.7 kg/q7KuhwjctKaitlin Macdonald WRAPPER HANDS SPRAYER-CONTACT LENS ASSISTANT Work Phone: [facility] [employer] Azaxjt86-35-1703 10:07-0400Body .34 kgKaitlin Macdonald WRAPPER HANDS SPRAYER-CONTACT LENS ASSISTANT Work Phone: [facility] [employer] Vunznc76-33-6070 10:07-0400Diastolic blood cmzsxmim09 mm[Hg]Kaitlin Macdonald WRAPPER HANDS SPRAYER-CONTACT LENS ASSISTANT Work Phone: [facility] [employer] Omomfo50-54-3083 10:07-0400Heart rate 89 /minKaitlin Macdonald APRN-CONTACT LENS ASSISTANT Work Phone: [facility] [employer] Cmnnem61-84-9477 10:07-0400Systolic blood lohcxhdm949 mm[Hg]Kaitlin Macdonald APRN-CONTACT LENS ASSISTANT Work Phone: [facility] [employer] Aubtdi41-33-5966 14:21-0500Body mass index (BMI) [Ratio]23.52 kg/d3Gfbxpqkyial Shama DO Work Phone: noSaint [facility] CenterIkadtywpzs46-95-6270 14:21-0500Body nhrute74.24 kgChristopher Sesay DO Work Phone: noSaint [facility] CenterGkwibglooa89-85-1282 14:21-0500Diastolic blood ibqjtznc14 mm[Hg]Christsantoser Shama DO Work Phone: noSaint [facility] CenterDbgyvfokwc25-02-9634 14:21-0500Heart rate79 /min Christopher Shama DO Work Phone: noSaint [facility] CenterAqvpqlbgxr39-75-3284 14:21-8717LeH1% (BldA) [Mass fraction]97 %Christopher Shama DO Work Phone: noSaint [facility] CenterJhcykdifbu31-88-1279 14:21-0500Systolic blood onypzhsl247 mm[Hg]Christopher Shama DO Work Phone: [facility] HospitalVoovmkzjnx82-16-8095 11:45-0500Body boyxdb703.[address]11-12-2024 11:45-0500Body mass index (BMI) [Ratio] 22.31 kg/m[address]11-12-2024 11:45-0500Body .97 kg [address]11-06-2024 11:25-0500Body .6 cmKaitlin Macdonald WRAPPER HANDS SPRAYER-CONTACT LENS ASSISTANT Work Phone: [facility]11-06-2024 11:25-0500Body mass index (BMI) [Ratio]22.49 kg/h0YalebdfKaitlin Macdonald WRAPPER HANDS SPRAYER-CONTACT LENS ASSISTANT Work Phone: [facility]11-06-2024 11:25-0500Body flodmx97.42 kgKaitlin Macdonald WRAPPER HANDS SPRAYER-CONTACT LENS ASSISTANT Work Phone: [facility]11-04-2024 13:28-0500Body mass index (BMI) [Ratio]23.52 kg/g5Vuowgrnyktl Shama DO Work Phone: [facility] HospitalSoiblmcgqi71-86-7372 13:28-0500Body .24 kgChristopher Shama DO Work Phone: [facility] HospitalImbblzmgfj90-93-6294 13:28-0500Diastolic blood xfxqkiuu909 mm[Hg]Raven Sesay DO Work Phone: [facility] HospitalWhtioqxltj32-96-1306 13:28-0500Heart rate87 /min Raven Sesay DO Work Phone: [facility] HospitalCqojsisrym87-27-5515 13:28-0120JbD5% (BldA) [Mass fraction]91 %Raven Sesay DO Work Phone: [facility] HospitalLokxzlxaya92-19-7469 13:28-0500Systolic blood etpcbmqm090 mm[Hg]Bonifacioopher Shama DO Work Phone: [facility] HospitalJvpvijpfvw44-28-5048 11:35-0400Diastolic blood zmaxavgj426 mm[Hg]MD Krzysztof Thompson Work Phone: [phone][address] [place], [place] 4797707-17-2024 11:35-0400 Heart rate76 /minMD Krzysztof Hoanastasia Work Phone: [phone])[address] [place], [place] 4797707-17-2024 11:35-0400 Respiratory rate18 /minMD Krzysztof Hoy Work Phone: [phone])[address] [place], [place] 4797707-17-2024 11:35-0400 SaO2% (BldA) [Mass fraction]96 %MD Krzysztof Thompson Work Phone: [phone])[address] [place], [place] 4797707-17-2024 11:35-0400 Systolic blood gwmrgzhe842 mm[Hg]MD Krzysztof Thompson Work Phone: [phone])[address] [place], [place] 4797707-17-2024 10:24-0400 Body isxsgz558.48 cmMD Krzysztof Hoy Work Phone: [phone])[address] [place], [place] 4797707-17-2024 10:24-0400 Body cesjtg03.14 kgMD Krzysztof Hoy Work Phone: [phone])[address] [place], [place] 4797706-11-2024 09:07-0400 Body .48 cmMD Krzysztof Hoy Work Phone: [phone] [place], [place] 4797706-11-2024 09:07-0400 Body mass index (BMI) [Ratio]24.7 kg/m2MD Krzysztof Hoy Work Phone: [phone])[address] [place], [place] 4797706-11-2024 09:07-0400 Body vspich77.23 kgMD Krzysztof Hoy Work Phone: [phone])[address] [place], [place] 4797706-11-2024 09:07-0400 Diastolic blood sshberni045 mm[Hg]MD Krzysztof Thompson Work Phone: 1(113)[address] [place], [place] 4797706-11-2024 09:07-0400 Heart rate60 /minMD Krzysztof Thompson Work Phone: [phone])[address] [place], [place] 4797706-11-2024 09:07-0400 Systolic blood knpsoxst057 mm[Hg]MD Krzysztof Thompson Work Phone: 1(332)624-[address] [place], [place] 6504805-28-2024 13:37-0400 Diastolic blood aifvspzk64 mm[Hg]MD rKzysztof Thompson Work Phone: [phone])[address]05-28-2024 13:37-0400 Heart rate78 /minMD Krzysztof Thompson Work Phone: [phone])[address]05-28-2024 13:37-0400 Respiratory rate16 /minMD Krzysztof Thompson Work Phone: [phone])[address]05-28-2024 13:37-0400 SaO2% (BldA) [Mass fraction]97 %MD Krzysztof Thompson Work Phone: [phone])[address]05-28-2024 13:37-0400 Systolic blood lgqpyiqh463 mm[Hg]MD Krzysztof Thompson Work Phone: [phone])[address]05-28-2024 11:35-0400 Body yjriia877.48 cmMD Krzysztof Thompson Work Phone: [phone])[address]05-28-2024 11:35-0400 Body ehrqhkfrwly56.1 [degF]MD Krzysztof Thompson Work Phone: [phone])[address]05-28-2024 11:35-0400 Body elcbbz25.14 kgMD Krzysztof Thompson Work Phone: [phone] [place] [address] Encounters Encounter DateEncounter TypeCare ProviderFacilityStart: 84-45-8570ffdfpnzfzh Facility:[facility]: 07-15-2025 End: 11-11-9740Xqrtvddei encounterErin Bashir [facility] SYSTEMPro[facility] Physicians General SurgeryStart: 06-23-2025 End: 72-84-6185Maylya outpatient visit 15 minutesKaitlin Macdonald APRN-CONTACT LENS ASSISTANT Work Phone: [facility] General SurgeryComment on above: Incontinence of feces, unspecified fecal incontinence type (Primary Dx); Diverticular stricture ([facility])Start: 06-23-2025 End: 01-35-6727plivhuijbtDRYSNCHFormerly [facility] Start: 05-13-2025 End: 17-82-3925fkrctdfvsmGcjedlf M Hoy MD Work Phone: [facility] Work Phone: Start: 05-13-2025 End: 78-89-6526Cscoafpg ReferredKrzysztof Marmolejo MD-LAB [facility] Start: 05-04-2025 End: 87-34-3291gtuuismaauEtrjhtv M Hoy MD Work Phone: [facility] Work Phone: Start: 05-04-2025 End: 94-79-6767Rhirqwm encounter procedureRickie Johnson MD-[facility] Work Phone: Start: 04-27-2025 End: 15-91-6662ckxmgfuonfTyiqies M Hoy MD Work Phone: [facility] Work Phone: Start: 04-27-2025 End: 91-54-6978Ullmbsf encounter procedureThsenait Alvares MD-[facility] Work Phone: Start: 04-02-2025 End: 68-94-5945rjcymjryjwWrywlmt M Hoy MD Work Phone: [facility] Work Phone: Start: 04-02-2025 End: 30-51-9668Onwpwor encounter procedureRickie Johnson MD-[facility] Work Phone: Start: 07-74-1363lavzactubpBprxeeHugo Atwood MD [facility]: 03-26-2025 End: 92-14-0878nmzrjforcjOdlcuye M Hoy MD Work Phone: [facility] Work Phone: Start: 03-26-2025 End: 40-61-5736Kbppeho encounter procedureVasyl Chicas MD-[facility] Work Phone: start: 03-11-2025 End: 14-42-0116ddxoqyzojtJanxxjj M Hoy MD Work Phone: [facility] Work Phone: Start: 03-11-2025 End: 02-17-9001Tqofiba encounter procedureRickie Johnson MD-[facility] Work Phone: Start: 02-26-2025 End: 37-88-7279Mlagbpi encounter procedureVasyl Chicas MD-[facility] Work Phone: Start: 02-26-2025 End: 86-61-0816yvdgqpyctnTgewffi M HoyFamanning regional healthcare center:[facility] Start: 02-19-2025 End: 76-17-5329Jfvmrrp encounter procedureVasyl Chicas MD-[facility] Work Phone: start: 12-25-2024 End: 50-79-6271Ddlimh outpatient visit 15 minutesKaitlin Macdonald WRAPPER HANDS SPRAYER-CONTACT LENS ASSISTANT Work Phone: [facility] SurgeryComment on above: Bright red blood per rectum (Primary Dx)Start: 12-25-2024 End: 72-24-9051Sfthql OnlyNot In System Ref ProvProMedica Physicians General SurgeryStart: 08-11-2024 End: 27-37-2477zsscxckfzzZQOITBNZDNJ HASSETTNot AvailableStart: 08-11-2024 End: 75-96-0835Mvtrgz outpatient visit 25 minutesChristopher Shama DO Work Phone: [facility] STATE ROUTEComment on above:Left hand pain (Primary Dx); Primary osteoarthritis of hand, unspecified lateralityStart: 08-04-2024 End: 85-93-7272Uvjtltugj encounterAngelica Dawson CMAProMedica Physicians General SurgeryStart: 07-28-2024 End: 72-72-4194Sdxbyltmdp and management of inpatientNorton Community Hospitaltart: 07-22-2024 End: 20-17-7602gjucjcuzjwLte Pat Phone Call Provider [address] [place] [address] - Pre AdmitStart: 07-22-2024 End: 42-29-4014xzzwwmwtwtCCYHKMG M [facility] Centertart: 07-17-2024 End: 49-57-4915Ghcrvs flowsheetChristopher Shama DO Work Phone: [facility] [facility] ROUTEStart: 07-17-2024 End: 40-79-0150Ployty flowsheetChristopher Shama DO Work Phone: [facility] [facility] ROUTEStart: 07-17-2024 End: 44-55-4719Bngffrj encounter procedureChristopher Shama DO Work Phone: [facility] STATE ROUTEComment on above:Cervical radiculopathy (Primary Dx); ParesthesiaStart: 07-17-2024 End: 28-94-8797nlpcppmjfxTHMVGJURZXK HASSETTNot AvailableStart: 07-16-2024 End: 17-30-9927Nhrxml outpatient new 30 minutesAudieharrisoncrossbridge behavioral health [place] Macdonald WRAPPER HANDS SPRAYER-CONTACT LENS ASSISTANT Work Phone: [facility] General SurgeryComment on above: Vomiting in adult (Primary Dx); History of gastric ulcer; Chronic GERD; Hiatal hernia; Dysphagia, unspecified typeStart: 07-16-2024 End: 73-90-4251mlwzziojrnZWQNJEVMultiCare [facility] Start: 07-15-2024 End: 69-88-0185bjkhnsgzrwJAQOK A HUDDLESTONNot AvailableStart: 07-15-2024 End: 66-77-1407Zmbcco outpatient visit 10 minutesCleve Sheth DO Work Phone: n[facility] CI ORTHOPAEDICSComment on above:Chronic right hip pain (Primary Dx); Sacral insufficiency fracture with routine healing, subsequent encounter; Closed fracture of multiple pubic rami, right, initial encounter ([facility])Start: 07-14-2024 End: 07-32-7447Emstch flowsheetChristopher Shama DO Work Phone: [facility] [place] [facility] R[facility]TEStart: 07-14-2024 End: 69-02-2894Xcwmsy flowsheetChristopher Shama DO Work Phone: no[facility] ROUTEStart: 07-14-2024 End: 63-13-3146Nyyyev outpatient new 30 minutesChristopher Shama DO Work Phone: [facility] STATE ROUTEComment on above:Paresthesia (Primary Dx)Start: 07-14-2024 End: 46-53-6962wbsfegavjwEUZGRTIVKEN HASSETTNot AvailableStart: 06-17-2024 End: 28-11-6125Mmltzn flowsheetCleve Sheth DO Work Phone: n[facility] CI ORTHOPAEDICSStart: 06-17-2024 End: 47-29-3706Kkxveu flowsheetCleve Sheth DO Work Phone: n[facility] CI ORTHOPAEDICSStart: 06-17-2024 End: 38-11-3791Ciglav outpatient visit 25 minutesJabernard Sheth DO Work Phone: noMS CI ORTHOPAEDICSComment on above:Chronic right hip pain (Primary Dx); Sacral insufficiency fracture, initial encounter ([facility]); Closed fracture of multiple pubic rami, right, initial encounter ([facility])Start: 06-17-2024 End: 10-39-3284qmjqdmigfvCYPVB A HUDDLESTONNot AvailableStart: 06-13-2024 End: 99-70-5085Hthudnohn department patient visitDOJEISONLAZARA Marmolejo VietHuntington Beach Hospital and Medical Centertart: 06-12-2024 End: 25-42-1296qlruzbgzvoRVCVK A HUDDLESTONNot AvailableStart: 06-05-2024 End: 68-85-4311Umawvrvhe encounterSammaadela Case PTNOMS CI PTComment on above:PT [...] to fractures in bones. )Start: 06-05-2024 End: 51-77-3830Lsggou outpatient visit 15 minutesCleve Sheth DO Work Phone: [facility] ORTHOPAEDICSComment on above:Chronic right hip pain (Primary Dx)Start: 06-05-2024 End: 99-49-5862bnrnzueihtVKSQO A HUDDLESTONNot AvailableStart: 2024 End: 17-34-0103fzeenxtntpMCAKTAdan SHETHNot AvailableStart: 04-01-2024 End: 35-49-5617rlvdkzrrteNOBIK A HUDDLESTONNot AvailableStart: 19-38-5275Jxh- patient / Non-visitMD Krzysztof Hoy Work Phone: [facility] Work Phone: Start: 03-26-2024 End: 46-11-2201Eepfvmane to same day surgery centerMD Krzysztof Hoy Work Phone: [facility] Work Phone: Start: 03-26-2024 End: 83-90-1472ntqhngkbthLM Krzysztof M Hoy Work Phone: [facility] Work Phone: Start: 02-19-2024 End: 48-88-6634tnlcjgdugvGU Krzysztof M Hoy Work Phone: [facility] Work Phone: Start: 02-19-2024 End: 31-43-4560Yfnpxfk encounter procedureMD Krzysztof Hoy Work Phone: [facility] Work Phone: Start: 84-29-6429Sdp-patient / Non-visitMD Krzysztof Hoy Work Phone: [facility] Work Phone: Start: 02-05-2024 End: 62-21-1151Vpozljksq to same day surgery centerMD Krzysztof Thompson Work Phone: [facility] Work Phone: Start: 02-05-2024 End: 52-75-8430yjkqbdekncKA Krzysztof Marmolejo Hoanastasia Work Phone: [facility] Work Phone: Start: 38-04-1766Xeh-patient / Non-visitMD Krzysztof Thompson Work Phone: [facility] Work Phone: Start: 01-09-2024 End: 15-85-7745gmhzrgdtvpMDCV DUCKETTNot AvailableStart: 50-65-2531uxaeekzzpk JN GARCIA .Facility:X1Eqokl: 01-15-2023 End: 30-93-4202jljjjjzdwhNSNXSS RODRIGUEZ .Facility:O5Pmkhi: 01-10-2023 End: 19-52-8338eudacaivpbCI KRZYSZTOF HOY .Facility:J8Bywxp: 12-15-2022 End: 86-67-5951bpyvlgzkyqMKCLAR RODRIGUEZ .Facility:G8Sjnee: 12-15-2022 [facility] 12-05-2022 End: 53-57-8124irspdtpirgKU KRZYSZTOF HOY .Facility:Y6Lfbcj: 11-25-2022 End: 06-35-7630Ygweokrizf and management of inpatientDR KRZYSZTOF HOY .Facility:H1 Start: 11-13-2022 End: 09-38-5139wgrqjjuzemJG KRZYSZTOF HOY .Facility:G1Djxbg: 11-09-2022 End: 91-00-4194dbyoarrbclAX KRZYSZTOF HOY .Facility:M8Rsirt: 10-20-2022 End: 81-73-6742vncjgpnaxhGS KRZYSZTOF HOY .Facility:S8Eaeup: 10-19-2022 End: 81-25-2620xjwuosvsolTE KRZYSZTOF HOY .Facility:K8Fawbs: 10-18-2022 End: 54-35-3511sqijgpethiEV KRZYSZTOF HOY .Facility:M1Iedcs: 09-25-2022 End: 3915lbbrorlduiCD KRZYSZTOF HOY .Facility:L6Vzmxo: 07-25-2022 End: 21-53-1228jpkcyzixylAY KRZYSZTOF HOY .Facility:S2Sseuk: 05-26-2022 End: 19-36-4934jacszxlawpOJ KRZYSZTOF HOY .Facility:F9Rdxzs: 05-25-2022 End: 32-76-2097pnbztgwxcsYY KRZYSZTOF HOY .Facility:A4Kgglx: 05-24-2022 End: 27-26-3974cxzwfqrpleTW KRZYSZTOF HOY .Facility:R8Ttydn: 05-11-2022 End: 84-75-2387vbdzdbihrgYM KRZYSZTOF HOY .Facility:V3Qfvxj: 02-14-2022 End: 38-62-6453wcaawvmggrAX KRZYSZTOF HOY .Facility:R9Xhczx: 11-19-2018 End: 61-61-9305Oewiubp encounter procedurePROVIDER UNKNOWNFacility:[facility]art: 11-13-2018 End: 80-51-3076Vuxnqix encounter procedureDEFAULT PHYSICIANFacility:[facility]tart: 10-31-2018 End: 80-81-0892Huhwywa encounter procedureDEFAULT PHYSICIANFacility:[facility]art: 09-23-2018 End: 51-04-8878Bkkuylz encounter procedureDEFAULT PHYSICIANFacility:[facility]tart: 09-05-2018 End: 09-33-9371Nycjbnw encounter procedureDEFAULT PHYSICIANFacility:[facility] Procedures DateProcedureProcedure DetailPerforming ClinicianStart: 69-60-6311Vqarc X-ray of right shoulderKrzysztof Thompson MD Work Phone: [phone]-art: 09-27-1434X-ray of thoracic spine, two views Krzysztof Thompson MD Work Phone: Start: 70-56-1771S-ray of lumbar spine, six views including bending viewsKrzysztof Thompson MD Work Phone: Start: 27-33-0917D-ray of cervical spineDoivis Thompson MD Work Phone: Start: 38-82-2407Zyxa energy X-ray absorptiometry Krzysztof Thompson MD Work Phone: Start: 07-17-2024 End: 85-18-9721Oivqhe emg ea extremty w/paraspinl area completeChristopher Shama DO Work Phone: Start: 80-47-2534Nhzbg hip unilateral with pelvis 2-3 viewsJames A Meryl DO Work Phone: Start: 51-95-4634JsmwrumwzdoHyv In System Ref Prov Start: 99-54-7662Honblhyoz colonoscopyMD Krzysztof Thompson Work Phone: Start: 99-43-5352UiwklpykohacdnthxyyzswtqmaKR Krzysztof Hoy Work Phone: Plan of Treatment DateCare ActivityDetailAuthorStart: 38-14-7123ZYvV,Tdap and Td Vaccines (2 - Td or Tdap)DTaP,Tdap and Td Vaccines (2 - Td or Tdap)[facility] SystemStart: 66-37-6155Yjdkszu ScreeningTobacco ScreeningProMedica Health SystemStart: 55-11-3045Brbedad ScreeningTobacco ScreeningProMedica Health SystemStart: 76-48-5568Mpxrjwn ScreeningTobacco ScreeningProMedica Health SystemStart: 07-30-2025 End: 85-59-8747Fdgbhfq encounter wjpupbsui36/20/2025 11:00 AM EST Office Visit [facility] [address] [place] [address] Bon Covarrubias MD [address] [place] [address], [address] [place], [place] [phone] (Work) [facility] SurgeryStart: 41-43-9271Jgojijk ScreeningTobacco ScreeningProMedica Health SystemStart: 79-70-1020Kskjnto ScreeningTobacco ScreeningSelect [facility] Start: 62-54-5732Hpxqtnl ScreeningTobacco ScreeningNovant Health/NHRMCtart: 43-05-4817Mkgwucta identified in Urine by CultureUrine CultureUniversity Hospitals Beachwood Medical Centertart: 32-16-5730Okbby cultureUniversity Hospitals Beachwood Medical Centertart: 01-91-3983VOCGT-19 Vaccine ( season)COVID-19 Vaccine ( season)[facility]/NHRMCtart: 82-55-0480Mxujevwji vaccination Influenza VaccineNovant Health/NHRMCtart: 54-58-0173Ctfspep referral [facility] Work Phone: Start: 47-95-0518M-ray of thoracic spine, two viewsXR thoracic spine 2VUniversity Hospitals Beachwood Medical Centertart: 41-69-9109ZC Thoracic spine 2 ViewsUniversity Hospitals Beachwood Medical Centertart: 02-23-7404Nobczft referral [facility] Work Phone: Start: 08-11-2024 End: 37-45-8535Pnifpyy encounter mcktvtexd66/02/2024 2:15 PM EST [facility] [address] [address] [place] [phone] Raven Sesay [address] [place], [place] [phone] [facility] R[facility]TEStart: 07-28-2024 End: 31-41-8524Omxdkpykp to same day surgery opyldf9907/28/2024 9:15 AM EST - 07/28/2024 9:45 AM EST Surgery [facility] - Surgery [address] [place] [address] Nidia White MD [address] [place] [address] ESOPHAGOGASTRODUODENOSCOPY DIAGNOSTIC [67266 (CPT )][facility]icUC[facility] Highlands Ranch HospitalComment on above:ESOPHAGOGASTRODUODENOSCOPY DIAGNOSTIC [42833 (CPT )]Start: 07-28-2024 End: 84-34-3964Upstyowtqmqcnspfiwwdxpxnae transoral diagnostic ESOPHAGOGASTRODUODENOSCOPY DIAGNOSTIC vomiting, gastroesophageal reflux, dysphagia 07/28/2024 9:15 AM ESTFREMONT SURGERYStart: 96-11-7692Qdkidzakht hospital visit by xvjeaqooz83/18/2024 9:15 AM EST Hospital Encounter [facility] - Surgery [address] [place] [address] Nidia White MD [address] [place] [address] [facility]: 07[facility]22[facility]2024 End: 01-17-7909kzgzigxgar90/12/2024 3:10 PM EST Support Visit [facility] Admit [address] [place] [address] [facility] AdmitStart: 07-17-2024 End: 29-45-4250Mifwjhe encounter procedureNOMS GLENVIEW STATE ROUTEComment on above:ArrivedStart: 07-15-2024 End: 61-78-2450Gftwvun encounter procedureNOMS CI ORTHOPAEDICSStart: 07-14-2024 End: 99-49-4148MFT 1 ExtremeityEMG 1 Extremeity Neurology Routine Paresthesia Expected: 07/14/2024, Expires: 07/14/2025[facility] Work Phone: comment on above:Expected: 07/14/2024, Expires: 07/14/2025Start: 07-14-2024 End: 80-58-3885Cbvlwkl encounter procedureNOMS [place] STATE ROUTEComment on above:Brachial plexopathy; Ulnar neuropathy of left upper extremityStart: 06-17-2024 End: 60-07-1603Zulajgs encounter jeipbeegd48/08/2024 1:30 PM EDT Office Visit [facility] [address] [facility] [address] [place] [address] Cleve Sheth, [address] [facility] [address] [place] [address] Chronic right hip pain (Primary Dx); Sacral insufficiency fracture, initial encounter (CMS/HCC); Closed fracture of multiple pubic rami, right, initial encounter (CMS/HCC)[facility] Comment on above:Chronic right hip pain (Primary Dx); Sacral insufficiency fracture, initial encounter (CMS/HCC); Closed fracture of multiple pubic rami, right, initial encounter (CMS/HCC)Start: 06-16-2024 End: 90-04-5536Vdleavk encounter mihbjgpqf27/07/2024 12:30 PM EDT Office Visit [facility] [address] [place] [address] Raven Sesay DO [address] [place] [address] [facility] ROUTEStart: 05-11-2024 COVID-19 Vaccine ( season)COVID-19 Vaccine ( season) [facility] SystemStart: 12-17-9049Xrbygbqxj vaccinationInfluenza Vaccine (#1)[facility] HealthcareStart: 50-18-2045QporombdoUniversity Hospitals Beachwood Medical Centertart: 25-88-7017PriymglsnDunlap Memorial Hospital CenterStart: 14-53-4337QWN ( or age 60+ yrs) (1 - 1-dose 75+ series)RSV ( or age 60+ yrs) (1 - 1-dose 75+ series)[facility] SystemStart: 83-47-8074Mpxluhxfkadawy of varicella zoster vaccineZoster (Shingles) Vaccine (3 of 3)[facility] SystemStart: 24-31-8531Xtpo Risk ScreeningFall Risk ScreeningSelect Medical Specialty Hospital [facility] SystemStart: 62-39-4228DRmX,Tdap and Td Vaccines (1 - Tdap)DTaP,Tdap and Td Vaccines (1 - Tdap)[facility]/NHRMCtart: 34-08-5611Gjpzhkhwav ScreeningDepression ScreeningSelect Medical Specialty Hospital [facility] System End: 13-25-8532YxzighevoxuzqmbsbtsoljgcrgSYG GI Routine Vomiting in adult Chronic GERD Dysphagia, unspecified type 1 Occurrences starting 07/16/2024 until 07/16/2025[facility] Work Phone: Comment on above:1 Occurrences starting 07/16/2024 until 07/16/2025Patient EducationSt. Mary'S Medical Center Work Phone: Patient referralSelect Medical [facility]health Rehabilitation Hospital Work Phone: XR Shoulder - right ViewsBayfront Health St. Petersburg Emergency Room Immunizations Immunization DateImmunizationNotesCare NmlvjpjyIpdsauwy15-20-4912tdfukuacw virus vaccine, unspecified formulationChristopher Shama DO Work Phone: noSaint John's Breech Regional Medical CenterDecfopiqmi62-16-4414Hreqgmxle, Seasonal, Quadrivalent, AdjuvantedJames Meryl DO Work Phone: [facility]ty HospitalBxwbeiuwvl46-54-5145rdiewrdwc virus vaccine, unspecified formulationJames Meryl DO Work Phone: [facility]ty HospitalHlktnscade90-53-6708akdxzukqu, high dose seasonal, preservative-freeJames Meryl DO Work Phone: [facility]ty HospitalJqezjalkne09-21-4856Gdvhsthxw, High-dose Seasonal, Quadrivalent, Preservative FreeJames Meryl DO Work Phone: [facility]ty HospitalSvxgpqlrbq37-38-4448Bccckhths, High-dose Seasonal, Quadrivalent, Preservative FreeJames Meryl DO Work Phone: [facility]ty HospitalYscncioubb81-56-1524AQEI-DwR-1, UnspecifiedJames Meryl DO Work Phone: [facility]ty HospitalVirfimfdai03-57-5538dkthhm vaccine, unspecified formulationKaitlin Macdonald WRAPPER HANDS SPRAYER-CONTACT LENS ASSISTANT Work Phone: [facility] CenterIpljdo82-96-3551iwyeskwwp, high dose seasonal, preservative-freeJames Meryl DO Work Phone: [facility] HospitalZrypqfpwoy29-28-7240tmfplwhpg, injectable, quadrivalent, preservative freeJames Meryl DO Work Phone: [facility]ty HospitalEpfeggyasn43-89-0235cucuvkibd, high dose seasonal, preservative-freeJames Meryl DO Work Phone: [phone] [place], [place] [address]Ckscorwucr25-13-5661tsldxxwsu, high dose seasonal, preservative-freeJames Meryl DO Work Phone: [phone] [place], [place] [address]Bnzctzglpv23-63-6043tdaaojvultbw conjugate vaccine, 13 valentJames Meryl DO Work Phone: [facility]ty HospitalWzpsqknaag52-00-3146rgpaqrzld, seasonal, injectableJames Meryl DO Work Phone: [phone] [place], [place] [address]Axxayacujm75-08-8628zyvala vaccine, liveJames Newton DO Work Phone: [facility]ty HospitalNmgyowynxk88-42-0249vjfjhfuxjfmq polysaccharide vaccine, 23 valentJaRolling Plains Memorial Hospital DO Work Phone: [phone] [place], [place] [address]Pldcgiterm76-95-2469snounfzi influenza, intradermal, preservative freeAmerican Academic Health System DO Work Phone: [phone] [place] [address] Payers DatePayer CategoryPayerPolicy [id number]-pay2022MedicareANTHEM MEDICARE ADVANTAGE ANTHEM MEDICARE ADVANTAGE [id number] 2021-Present [address] [place] [id number] 2022Medicare (Managed Care)ANTHEM MEDICARE ADVANTAGE Member Subscriber Plan / Payer (Effective 2021-Present) Name: Sheila Mac Relation to Subscriber: Self Name: Sheila Mac SubscriberID: [id number] Payer ID: Not on file Group ID: [id number] Type: Not on file Address: [address] [place] [id number] 2018Medicare HMOANTHEM MEDICARE Member Subscriber Plan / Payer (Effective 2017-Present) Name: Lopez Mac Relation to Subscriber: Self Name: Sheila Mac Payer ID: [id number] (NAIC) Group ID: [id number] Type: Not on file Address: [address] [place] [id number] [id number] 2..1.913149.3.579.2. [id number] 2..1.638266.3.57[id number] 2..1.363049.3.57[id number] 2..1.634274.3.579.2.[id number] 2..1.924481.3.579.2.64714-47-4739Hxzymum0673856 2..1.259153.3.579.2.50256-71-9596Dgbufrv2722953 2.0.1.963437.3.579.2.08825-85-5295Ielemkc5323174 2.0.1.336762.3.579.2.24507-89-8332Etpcbso9436646 2.16840.1.290045.3.579.2.81988-19-4321Jorpbup3522830 2.16.840.1.068186.3.579.2.56800-02-8610Cwulzpi9987145 2.16840.1.488599.3.579.2.97832-19-4891Rmvzhwa2397544 2.16840.1.481507.3.579.2.38694-02-8947Jmxurzl1713060 2.840.1.606171.3.579.2.72698-57-7375Nukurrz1660345 2.840.1.725177.3.579.2.51181-66-7858Fxsmwvd4730239 2.840.1.393736.3.579.2.02253-42-2841Zeiotsv6263758 2.840.1.589380.3.579.2.71697-69-4631Hdgmjrh3798174 2.840.1.347140.3.579.2.29779-81-8972Fzqnxfc3234308 2.840.1.102790.3.579.2.15681-88-8213Krxiobx3008145 2.840.1.167062.3.579.2.24777-12-6117Gpdycwz3785672 2.16840.1.489257.3.579.2.63488-11-1766Mjevinn3145984 2.16840.1.723180.3.579.2.60687-88-0275Uqrkscc7154795 2.16840.1.430348.3.579.2.58692-57-4842Yuvkxkr3174971 2.16.840.1.751802.3.579.2.41260-61-8439Xykhefh0610268 2.840.1.526576.3.579.2.39778-91-9424Rmytota39166266 2.0.1.655594.3.579.2.034911-76-2003Uyglaql21381584 2.0.1.715433.3.579.2.334113-15-4853Lhqgtqo79467928 2.0.1.838440.3.579.2.718658-24-8202Akbhdgh4462247 2..1.410460.3.579.2.993437-39-1993Iasksme8625036 2..1.532439.3.579.2.224139-31-5036Fdymejg8942773 2.0.1.632844.3.579.2.651909-00-5531Ikyhsuj2666287 2.0.1.654911.3.579.2.225230-22-5553Jgdntnd7973929 2..1.836880.3.579.2.312843-41-8778Wblhulk2610719 2.0.1.966461.3.579.2.032077-12-9526Fxajpwy9994718 2.0.1.463521.3.579.2.469585-10-0133Lemuqhe0064187 2.840.1.399909.3.579.2.703893-46-5681Xlfkytm1244207 2.840.1.432073.3.579.2.589889-68-4652Sdvsnyn7499090 2.16.840.1.789964.3.579.2.297726-98-8491Xvhvhzt6095937 2.16.840.1.280707.3.579.2.659901-35-7819Fckknpt238120917 2.16.840.1.149282.3.579.2.503182-87-8897Cvcbmdc714260454 2.840.1.470186.3.579.2.668231-40-3689Qabbkno86680327 2.16840.1.8525[id number] 2.16840.1.491329.3.579.2.878Gzfpyfp46866642 2.840.1.057500.3.579.2.531 Aqnrvaq36417526 2.16840.1.923879.3.579.2.393Bjbitro65932783 2.16840.1.058026.3.579.2.531 Social History DateTypeDetailFacilityStart: 09-28-2017 End: 93-39-4293Clzulra smoking status NHISNever smoked tobacco (finding) [facility] Centertart: 95-60-9133Rbs Assigned At BirthFemale [facility] Centertart: 01-09-2024 End: 33-29-6854Uyypshmui beverage intakeLifetime non-drinker (finding)[facility] HealthcareStart: 10-21-2020 End: 26-20-5220Nmutjyw of Social functionNOMS HealthcareStart: 10-21-2020 End: 73-67-9920Ybcnmch use panelALTA VIEW HOSPITAL HealthcareStart: 22-51-8132Uye assigned at birthNot on fileALTA VIEW HOSPITAL HealthcareStart: 44-12-8378Qctmuax use and exposure Smokeless tobacco non-userProMarshall Medical Center North Health SystemStart: 07-16-2024 End: 43-46-9155Oefjwjedh beverage intakeCurrent non-drinker of alcohol (finding) [facility] CenterChildcareUnknowJohn Randolph Medical Centertart: 04-15-2015 SexFemale (finding)[facility] Goals DatePatient GoalDesired Activity/State Clinical Notes 02-14-2022 to 07-15-2025 Note Date & EztwNcciYqohhxbw95-93-7351 Miscellaneous Notes* Telephone Encounter - Jena Camejo CMA - 07/15/2025 10:33 AM EST Sheila called the office and she was confused on if she should keep her appointment with [facility] for her GI issues, or if she should try to find someone closer to her home. Her friend told her that their was a surgeon in [place] that is not a lot closer to her. I spoke on her speaker phone with her, her , & her son Cleve who will be driving her to the appointment. He does know how to use [employer]. While she does understand it's her decision where she goes, she was asking for some advise. I told her if she stays in [facility] they'll have easy access to everything that [...] & let us know. documented in this encounterSycamore Medical Center11-05-2025 Telephone encounter Note* Telephone Encounter - Jena Camejo CMA - 07/15/2025 10:33 AM EST Sheila called the office and she was confused on if she should keep her appointment with [facility] for her GI issues, or if she should try to find someone closer to her home. Her friend told her that their was a surgeon in [place] that is not a lot closer to her. I spoke on her speaker phone with her, her , & her son Cleve who will be driving her to the appointment. He does know how to use [employer]. While she does understand it's her decision where she goes, she was asking for some advise. I told her if she stays in [facility] they'll have easy access to everything that [...] they have any further questions or concerns [facility]11-05-2025 Telephone encounter Note* Telephone Encounter - Jena Camejo CMA - 07/15/2025 10:33 AM EST I did try to call the patient to see if she wants to add her son as an emergency contact. I left her a message to call us & let us know. [facility]10-14-2025 History of Present illness Narrative* Kaitlin Macdonald, WRAPPER HANDS SPRAYER-CONTACT LENS ASSISTANT - 06/23/2025 10:30 AM EDT Images from [...] was March [address] Sanchez at [facility] [place] [place]. Sigmoid diverticular stricture noted, able to pass [...] disease) ([facility] Diverticulitis Fecal incontinence GERD (gastroesophageal reflux disease) [...] 05/26/2021 Performed by Freeman Michelle DO at [facility] EGD N/A 10/01/2017 Performed by Freeman Michelle DO at [facility] ESOPHAGOGASTRODUODENOSCOPY ESOPHAGOGASTRODUODENOSCOPY N/A 05/26/2021 Performed by Freeman Michelle DO at [facility] ESOPHAGOGASTRODUODENOSCOPY DIAGNOSTIC N/A 07/28/2024 Performed by Nidia [...] Interpersonal Safety: Unknown (11/01/2023) [facility] from [facility] Fear of Current or [...] patient/family/caregiver Referring and communicating with other health human services care specialist Incontinence of feces, unspecified fecal incontinence type [R15.9] TAMIE REYES [facility] [place] This note was created with the assistance of a speech recognition program. While intending to generate a timely document that accurately reflects the content of the visit, no guarantee can be provided that every grammatical or spelling mistake has been or will be identified or corrected. Thank you for your understanding. TAMIE Reyes 06/23/25 1034 documented in this encounterSelect [facility] Hykuro73-38-1460 Evaluation note* Diagnosis Onset Date Resolution Status Admit Date Left lumbosacral radiculopathy acuteJune 2024 2:18pmSpondylolisthesis, lumbar regionacuteJune 2024 2:18pmChronic painacuteJuly 2024 7:53amMyalgiaacuteJuly 2024 7:53am Thoracic back painacuteJuly 2024 7:53am [facility] Work Phone: 1(372) 362-310206-12-2025 Evaluation note* Diagnosis Onset Date Resolution Status Admit Date Left lumbosacral radiculopathy acuteJune 2024 2:18pmSpondylolisthesis, lumbar regionacuteJune 2024 2:18pmChronic painacuteJuly 2024 7:53amMyalgiaacuteJuly 2024 7:53am Thoracic back painacuteJuly 2024 7:53amLeft lumbosacral radiculopathyacute March 26, 2025 2:23pmSpondylolisthesis, lumbar regionacuteJuly 2024 2:23pm [facility] Work Phone: 1(510) 512-156206-12-2025 Evaluation note* Diagnosis Onset Date Resolution Status Admit Date Left lumbosacral radiculopathy acuteJune 2024 2:18pmSpondylolisthesis, lumbar regionacuteJune 2024 2:18pmChronic painacuteJuly 2024 7:53amMyalgiaacuteJuly 2024 7:53am Thoracic back painacuteJuly 2024 7:53amLeft lumbosacral radiculopathyacute March 26, 2025 2:23pmSpondylolisthesis, lumbar regionacuteJuly 2024 2:23pmChronic painacuteJuly 2024 8:55amMyalgiaacuteJuly 2024 8:55am Shoulder pain, rightacuteJuly 2024 8:55amThoracic back painacuteJuly 2024 8:55am [facility] Work Phone: 1(544) 576-746706-12-2025 Evaluation note* Diagnosis Onset Date Resolution Status [...] 2024 1:29pmPostmenopausalacuteAugust 2024 1:29pmStomach ulceracuteAugust 2024 1:29pm [facility] Work Phone: 1(610) 470-180106-12-2025 Evaluation note* Diagnosis Onset Date Resolution Status [...] rightacuteAugust 2024 8:05amThoracic back painacuteAugust 2024 8:05am [facility] Work Phone: 1(934) 402-622004-17-2025 History of Present illness Narrative* Kaitlin Macdonald, WRAPPER HANDS SPRAYER-CONTACT LENS ASSISTANT - 12/25/2024 10:00 AM EDT Images from [...] was March [address] Sanchez at [facility] [place]. Sigmoid diverticular stricture noted, able to pass [...] 05/26/2021 Performed by Freeman Michelle DO at [facility] EGD N/A 10/01/2017 Performed by Freeman Michelle DO at [facility] ESOPHAGOGASTRODUODENOSCOPY ESOPHAGOGASTRODUODENOSCOPY N/A 05/26/2021 Performed by Freeman Michelle DO at [facility] ESOPHAGOGASTRODUODENOSCOPY DIAGNOSTIC N/A 07/28/2024 Performed by Nidia White MD at [facility] HYSTERECTOMY KNEE ARTHROSCOPY Right patient denies sugery, [...] Interpersonal Safety: Unknown (11/01/2023) [facility] Fear of Current or [...] patient/family/caregiver Referring and communicating with other health human services care specialist Bright red blood per rectum [K62.5] TAMIE REYES [facility] General Surgery [place] This note was created with the assistance of a speech recognition program. While intending to generate a timely document that accurately reflects the content of the visit, no guarantee can be provided that every grammatical or spelling mistake has been or will be identified or corrected. Thank you for your understanding. TAMIE Reyes 12/31/24 1056 documented in this encounterSycamore Medical Center12-02-2024 History of Present illness Narrative* Raven Sesay [...] headaches. Past Medical History: Diagnosis Date Diabetes ([facility]) Diverticulitis Gastric ulcer GERD (gastroesophageal reflux disease) HTN (hypertension) ([facility]) Osteoporosis ([facility]) Pancreatitis Rheumatic fever Past Surgical History: Procedure Laterality Date APPENDECTOMY BACK SURGERY 1991 HEART CATH HM MAMMOGRAPHY 2012 HYSTERECTOMY Diabetes LUMBAR SPINE SURGERY NECK SURGERY OTHER SURGICAL HISTORY Sigmoid Diverticulosis OTHER SURGICAL HISTORY 2017 perforated ulcer ME ARTHRS KNE SURG W/MENISCECTOMY MED/LAT W/SHVG Right [...] , wrist extensors , wrist flexor , climbing guide strength 5/5. LUE Strength deltoid , biceps , triceps , wrist extensors , wrist flexor , climbing guide strength 5/5. RLE Strength illopsoas, quadriceps, tibialis [...] reflex 0 . Metzger's sign negative. Coordination: [id number] testing and rapid alternating movements are normal Gait: Patient ambulates with a walker Review and summary of old records: EMG of the left upper extremity on 07/17/2024: A remote C8 radiculopathy on the left which is [id number]. No evidence of plexopathy or mononeuropathy. Venous [...] plan, and return instructions documented in this encounterRanken Jordan Pediatric Specialty [id number] Miscellaneous Notes* Telephone Encounter - Angelica Dawson [...] with no further questions. documented in this encounterSycamore [facility] Center11-25-2024 Telephone encounter Note* Telephone Encounter - Angelica Dawson CMA - 08/04/2024 2:31 PM EST ----- Message from Dr. Nidia White MD sent at 08/01/2024 12:06 PM EST ----- Regarding: Pathology Please let patient know that biopsies from EGD were negative for any issues. Thank you ----- Message ----- From: Interface - Lab Results/Orders In Sent: 07/31/2024 8:17 PM EST To: Nidia White MD [facility]11-25-[facility] Telephone encounter Note* Telephone Encounter - Angelica Dawson CMA - 08/04/2024 2:31 PM EST Spoke with patient regarding pathology results. Patient verbally understood with no further questions. [facility]11-12-2024 Miscellaneous Notes* Perioperative Nursing Note - Sakina Marvin RN - 07/22/2024 3:10 PM EST Preoperative Education Checklist- General Surgery date: 07/28/24 Surgery time: 914 Arrival time: 714 1. Bring a photo ID and your insurance card with you the day of surgery. You will check in at the main lobby of the [facility]- registration desk is straight ahead as soon as you walk in. Tell them you are here for surgery. 2. If you have a Living Will/Durable Power of Allocation Analyst for Health Care that is not on [...] after you have bathed. 5. NO nail french/acrylic on at least one finger. If you are having a hand, wrist or foot surgery then all nail french and artificial/acrylic nails must be removed from [...] please call the Preadmission Testing office at [phone], Mon.-Fri. 7 a.m.-3 p.m. Leave a voicemail [...] days prior to procedure documented in this encounterSycamore [facility] Center11-12-2024 Nurse Note* Perioperative Nursing Note - Sakina Marvin RN - 07/22/2024 3:10 PM EST Preoperative Education Checklist- General Surgery date: 07/28/24 Surgery time: 914 Arrival time: 714 1. Bring a photo ID and your insurance card with you the day of surgery. You will check in at the main lobby of the [facility]- registration desk is straight ahead as soon as you walk in. Tell them you are here for surgery. 2. If you have a Living Will/Durable Power of Allocation Analyst for Health Care that is not on [...] after you have bathed. 5. NO nail french/acrylic on at least one finger. If you are having a hand, wrist or foot surgery then all nail french and artificial/acrylic nails must be removed from [...] please call the Preadmission Testing office at [phone], Mon.-Fri. 7 a.m.-3 p.m. Leave a voicemail [...] Stop taking 0 days prior to procedure [facility]11-07[facility] History of Present illness Narrative* KALI Wolfe - 07/17/2024 9:00 AM EST Images from the original note were not included. Reason for Appointment: EMG Patient: Sheila Mac : 1950 EMG Computer: [employer] Referring Physician: Dr. Raven Sesay EMG: CINTHYA plumber gasfitter: Jarrett Palmer RT(R) Office Location: [place] Reason for EMG: c/o numbness/tingling in left hand especially in 3rd 4th 5th digits, weakness in left hand. Hx of surgery to neck. No hx of DM. Taking ASA & Plavix. Comments: Procedure was explained to the patient & who expressed understanding. Patientappeared to have tolerated the test well despite some discomfort due to the nature of the test. documented in this encounterRanken Jordan Pediatric Specialty [id number] History of Present illness Narrative* Kaitlin Macdonald, [...] 05/26/2021 Performed by Freeman Michelle DO at [facility] EGD N/A 10/01/2017 Performed by Freeman Michelle DO at [facility] ESOPHAGOGASTRODUODENOSCOPY ESOPHAGOGASTRODUODENOSCOPY N/A 05/26/2021 Performed by Freeman Michelle DO at [facility] HYSTERECTOMY KNEE ARTHROSCOPY Right patient denies sugery, [...] Interpersonal Safety: Unknown (11/01/2023) Received from [facility] [place] Safety & Environment Fear of [...] patient/family/caregiver Referring and communicating with other health human services care specialist Vomiting in adult [R11.10] KAITLIN MACDONALD, WRAPPER HANDS SPRAYER-CONTACT LENS ASSISTANT [facility] General Surgery [place] This note was created with the assistance of a speech recognition program. While intending to generate a timely document that accurately reflects the content of the visit, no guarantee can be provided that every grammatical or spelling mistake has been or will be identified or corrected. Thank you for your understanding. TAMIE Reyes 07/16/24 1232 documented in this encounterSycamore Medical Center11-05-2024 History of Present illness Narrative* Cleve Sheth, DO - 07/15/2024 10:30 AM EST Images from the original note were not included. HISTORY OF PRESENT ILLNESS: Sheila Mac is an 74 y.o. @ female. Chief complaint RT hip pain RT hip: using calcitonin NS Pt went to [facility] ER 06/13, X-rays done pelvis and lumbar. RX for lidoderm patches given, she states she could hardly walk. RT hip pain x 3-4 months, worsened on 05/31 after going to the grocery store. Denies injury. She hadinjections at [facility] in April without relief. She saw Dr Thompson 06/02 and 06/04, given IM injections-no relief. She is walking better, using rollator. Mild ache in the thigh. Using pain spray daily Saw Dr Thompson 06/02 and 06/04. XR done at [facility] 06/02/24. Using hot icy hot. Given IM torodol, Tramadol RX and PT ordered, XR [place] [facility] 06/05/24, MRI [facility] 06/12/24, [facility] ER 06/13/24, lidoderm patches, calcitonin [...] HISTORY: Past Medical History: Diagnosis Date Diabetes ([facility]) Diverticulitis Gastric ulcer GERD (gastroesophageal reflux disease) HTN (hypertension) ([facility]) Osteoporosis ([facility]) Pancreatitis Rheumatic fever ALLERGIES: Allergies Allergen Reactions Iodinated Contrast Media Morphine Penicillins Nsaids Rash VITALS: Visit Vitals Smoking Status Never PHYSICAL EXAM: Ortho Exam RIGHT HIP Using Rollator Strength 4/5 ROM 30 IR and 30 ER IMAGING: June 05, 2024 x-rays from the [place] office AP pelvis and lateral of the right hip demonstrate an intact hip joint space. There are no fractures detected. The bone has an osteopenic appearance.The joint spaces are symmetric. There is no obvious effusion or soft tissue swelling. Impression: No acute findings on x-rays of the right hip Hemal Sheth D.O. MRI of the right hip from the [facility] center. There is a sacral insufficiency [...] of multiple pubic rami, right, initial encounter ([facility]) S32.591A calcitonin, salmon, [...] Dr. Sheth/ashley Sheth D.O. documented in this encounterRanken Jordan Pediatric Specialty [id number] History of Present illness Narrative* Raven Sesay [...] headaches. Past Medical History: Diagnosis Date Diabetes ([facility]) Diverticulitis Gastric ulcer GERD (gastroesophageal reflux disease) HTN (hypertension) ([facility]) Osteoporosis ([facility]) Pancreatitis Rheumatic fever Past Surgical History: Procedure Laterality Date APPENDECTOMY BACK SURGERY 1991 HEART CATH MAMMOGRAPHY 2013 HYSTERECTOMY Diabetes LUMBAR SPINE SURGERY NECK SURGERY OTHER SURGICAL HISTORY Sigmoid Diverticulosis OTHER SURGICAL HISTORY 2017 perforated ulcer ME ARTHRS KNE SURG W/MENISCECTOMY MED/LAT W/SHVG Right [...] , wrist extensors , wrist flexor , climbing guide strength 5/5. LUE Strength deltoid , biceps , triceps , wrist extensors , wrist flexor , climbing guide strength 5/5. RLE Strength illopsoas, quadriceps, tibialis [...] reflex 0 . Metzger's sign negative. Coordination: Swwesv-tm-poai testing and rapid alternating movements are normal [...] plan, and return instructions documented in this encounterRanken Jordan Pediatric Specialty [id number] History of Present illness Narrative* Cleve Sheth DO - 06/17/2024 1:30 PM EDT Images from the original note were not included. HISTORY OF PRESENT ILLNESS: Sheila Mac is an 74 y.o. @ female. Chief complaint RT hip pain RT hip: here for MRI results [facility] 06/12/24 Pt went to [facility] ER 06/13, X-rays done pelvis and lumbar. RX for lidoderm patches given, she states she could hardly walk. RT hip pain x 2-3 months, worsened on 05/31 after going to the grocery store. Denies injury. She hadinjections at [facility] in April without relief. She saw [...] Thompson 06/02 and 06/04. XR done at [facility] 06/02/24. Using hot icy hot. Given IM torodol, Tramadol RX and PT ordered, XR [place] [facility] 06/05/24, MRI [facility] 06/12/24, [facility] ER 06/13/24, lidoderm patches I [...] HISTORY: Past Medical History: Diagnosis Date Diabetes ([facility]) Diverticulitis Gastric ulcer GERD (gastroesophageal reflux disease) HTN (hypertension) ([facility]) Osteoporosis ([facility]) Pancreatitis Rheumatic fever [...] IMAGING: June 05, 2024 x-rays from the [place] office AP pelvis and lateral of the right hip demonstrate an intact hip joint space. There are no fractures detected. The bone has an osteopenic appearance.The joint spaces are symmetric. There is no obvious effusion or soft tissue swelling. Impression: No acute findings on x-rays of the right hip Hemal [place] I reviewed an MRI of the right hip from the [place] [facility]. There is a sacral insufficiencyfracture and suspected insufficiency fractures of the right superior and inferior pubic rami. The right hip joint is intact and there are no fractures in the hip. There is loss of articular cartilage in the right hip consistent with arthritis. ASSESSMENT: ICD-10-CM 1. Chronic right hip pain M25.551 G89.29 2. Sacral insufficiency fracture, initial encounter ([facility]) M84.48XA 3. Closed fracture of multiple pubic rami, right, initial encounter ([facility]) S32.591A calcitonin, salmon, (Miacalcin) 200 UNIT/ACT nasal [...] Dr. Sheth/ashley Sheth D.O. documented in this encounterRanken Jordan Pediatric Specialty [id number] History of Present illness Narrative* Cleve Sheth DO - 06/05/2024 1:30 PM EDT Images from the original note were not included. HISTORY OF PRESENT ILLNESS: Sheila Mac is an 74 y.o. @ female. Chief complaint RT hip pain New problem: RT hip pain. Dr Thompson referral. XR [facility] 06/03/24 RT hip pain x 2-3 months, worsened on 05/31 after going to the grocery store. Denies injury. She hadinjections at [facility] in April without relief. She saw Dr Thompson 06/02 and 06/04, given IM injections-no relief. She is having difficulty walking, using a walker. Pain with WB. Pain in the buttock, hamstringand inner thigh. Pain can be aching and sharp. Difficulty with sit to stand. Pain 1/10 at rest, goes to 10+/10 with WB. Has not started tramadol, will lemon picker today. Taking TYL, using icy hot. Saw Dr Thompson 06/02 and 06/04. XR done at [facility] 06/02/24. Using hot icy hot. Given [...] HISTORY: Past Medical History: Diagnosis Date Diabetes ([facility]) Diverticulitis Gastric ulcer GERD (gastroesophageal reflux disease) HTN (hypertension) ([facility]) Osteoporosis ([facility] [...] report of the right hip from the [facility] dated May of 2024 slightnarrowing [...] Dr. Sheth/ashley Sheth D.O. documented in this encounterRanken Jordan Pediatric Specialty [id number] Telephone encounter Note* Telephone Encounter - Bella Saavedra - 06/05/2024 11:40 AM EDT $40.00 copay / Prior auth needed. Rank[facility] Jordan Pediatric Specialty [id number] Miscellaneous Notes* Telephone Encounter - Bella Saavedra - 06/05/2024 11:40 AM EDT $40.00 copay / Prior auth needed. documented in this encounterRanken Jordan Pediatric Specialty HospitalXzoaldqdte88-14-2693 Procedure [facility]05-28-2024 Procedure [facility]04-07-2023 NoteCardiology Follow Up Progress Note Chief [...] agreeable. She will be (more content not included)...[facility] 12-15-2022 NoteReview of Systems Cardiovascular: Positive for leg swelling. Respiratory: Positive for shortness of breath. Skin: Positive for color change. Neurological: Positive for headaches. All other systems reviewed and are negative.[facility] 07-25-2022 NotePROCEDURE: MRA NECK WO CON [...] authenticated by: DANIEL PINEDA Date: 2022-07-25 13:25[facility] [id number] NotePROCEDURE: XR FOOT LT MIN 3 VIEWS HISTORY: Pain in left foot ; acute plantar pain COMPARISON: None. FINDINGS: BONES:No fracture, acute abnormality, or significant arthropathy. SOFT TISSUES:No visible soft tissue swelling. EFFUSION:None visible. OTHER: Negative. IMPRESSION: 1. No acute abnormality, significant degenerative changes, or findings to account for patient's symptoms. Electronically authenticated by: DANIEL PINEDA Date: 2022-05-11 12:51[facility]06-07-2022 NotePROCEDURE: XR KNEE LT 4V or > COMPARISON: None. HISTORY: Osteoarthritis FINDINGS: BONES:No fracture, acute abnormality, or significant arthropathy. SOFT TISSUES:Negative. No visible soft tissue swelling. EFFUSION:Moderate suprapatellar joint effusion OTHER: Negative. IMPRESSION: Moderate joint effusion Electronically authenticated by: GODWIN BECK Date: 2022-02-14 17:30[facility] HospitalEvaluation noteNo assessment information availableSt. Mary'S Medical Center Work Phone: Evaluation note* Diagnosis Onset Date Resolution Status Duodenal diverticulum acuteHiatal herniaacuteIBS (irritable bowel syndrome)acuteScreening for colon cancerSt. [facility] Work Phone: Evaluation note* Diagnosis Chronic right hip pain- Primary Sacral insufficiency fracture, initial encounter ([facility]) Closed fracture of multiple pubic rami, right, initial encounter ([facility]) documented in this encounter [facility] HealthcareEvaluation note* Diagnosis Paresthesia- Primary Disturbance of skin sensation documented in this encounter [facility] HealthcareEvaluation note* Diagnosis Chronic right hip pain- Primary Sacral insufficiency fracture with routine healing, subsequent encounter Closed fracture of multiple pubic rami, right, initial encounter ([facility]) documented in this encounter [facility] HealthcareEvaluation note* Diagnosis Cervical radiculopathy- Primary Brachial neuritis or radiculitis nos Paresthesia Disturbance of skin sensation documented in this encounter [facility] HealthcareEvaluation note* Diagnosis Left hand pain- Primary Pain in soft tissues of limb Primary osteoarthritis of hand, unspecified laterality documented in this encounter [facility]* Diagnosis Chronic right hip pain- Primary documented in this encounter [facility] HealthcareEvaluation note* Diagnosis Vomiting in adult- Primary History of gastric ulcer Chronic GERD Hiatal hernia Diaphragmatic hernia without mention of obstruction or gangrene Dysphagia, unspecified type documented in this encounter [facility]* Diagnosis Bright red blood per rectum- Primary Hemorrhage of rectum and anus [facility]* Diagnosis Incontinence of feces, unspecified fecal incontinence type- Primary Diverticular stricture ([facility]) documented in this encounter [facility] SystemHistory and physical note Author Ben Sanchez [facility] February 05, 2024 1:08pmNote Date/TimeMay 2023 1:08pm[place] [address] Gastroenterology H&P Signed Patient: Sheila Mac MR#: [id number] : 1950 Acct:[id number] Age/Sex: 73 / F Adm Date: 4 [...] signed by Ben Sanchez MD> 02/05/[address] [facility] Work Phone: History and physical note Author Ben Sanchez [facility] March 26, 2024 10:37amNote Date/TimeJuly 2023 10:37am[place] [address] Gastroenterology H&P Signed Patient: Sheila Mac MR#: [id number] : 1950 Acct:[id number] Age/Sex: 73 / F Adm Date: 4 [...] <Electronically signed by Ben Sanchez MD> 03/26/[address] [place] [address] Work Phone: Hospital Discharge instructionsAmbulatory Orders* Referral to Orthopedic Surgery Location: None [facility] Work Phone: InstructionsNot on filedocumented in this encounter [facility] SystemInstructionsNot on filedocumented in this encounter [facility] SystemInstructionsNot on filedocumented in this encounter [facility] SystemInstructionsNot on filedocumented in this encounter [facility] SystemInstructions* Attachments The following attachments cannot be sent through Care Everywhere. * Hemorrhoids (Divehi) documented in this encounterProMedica Health SystemInstructionsNot on file documented in this encounterProMedica Health SystemInstructionsNot on file documented in this encounterProMedica Health SystemReason for referral (narrative)No reason for referral information availableSt. Mary'S Medical Center Work Phone: Repdon for visit Narrative* Consultation (Routine) - ClosedSpecialtyDiagnoses / ProceduresReferred By ContactReferred To Contact Neurology Diagnoses Brachial plexopathy Ulnar neuropathy of left upper extremity Procedures ME OFFICE/OUTPATIENT NEW [facility] 60 MINUTES Cleve Sheth DO [address] [address] Phone: tel: fax:[phone] Daniel Patiño MD [address] [place] [address] Phone: tel: fax: Referral IDSGiuliano DateExpiration DateVisits RequestedVisits [id number] Consult and Treat / [facility] Healthcare Summary [...] 022024 9:53am CONSULT DR NEHAL ORTIZ [facility] [place] 03/02 ust 2024 1:29pm Reason for Visit [...] 022024 9:53am CONSULT DR NEHAL ORTIZ [facility] [place] [place] 03/02 ust 2024 1:29pm 1 mo fu [...] 022024 9:53am CONSULT DR NEHAL ORTIZ [facility] [place] [place] 03/02 ust 2024 1:29pm 1 mo fu trigger points/ consider shoulde r inj May 04, 2025 8:05am Unknown May 13, 2025 10:46am Additional Source Comments INFORMATION SOURCE (unrecogn ized section and content) DATE CREATED AUTHOR 11/24/2018 [facility] DATE CREATED AUTHOR AUTHOR'S ORGANIZ ATION 12/19/2022 [facility] DATE CREATED AUTHOR AUTHOR'S ORGANIZ ATION 01/18/2023 [facility] DATE CREATED AUTHOR AUTHOR'S ORGANIZ ATION 08/04/2024 [facility] DATE CREATED AUTHOR AUTHOR'S ORGANIZ ATION 08/12/2024 [facility] DATE CREATED AUTHOR AUTHOR'S ORGANIZ ATION 04/02/2025 [facility] DATE CREATED AUTHOR AUTHOR'S ORGANIZ ATION 05/15/2025 [facility] DATE CREATED AUTHOR AUTHOR'S ORGANIZ ATION 06/24/2025 [facility] DATE CREATED AUTHOR AUTHOR'S ORGANIZ ATION 07/22/2025 [facility] Care Teams (unrecognized sec tion and content) [...] Team MemberRelationshipSpecialtyStart DateEnd Date Krzysztof Thompson MD [address] [place] [phone] PCP - [facility] Medicine01/09/24Team MemberRelationshipSpecialtyStart DateEnd Date Krzysztof Thompson MD [address] [place] [address] [facility]01/09/24Team MemberRelationshipSpecialtyStart DateEnd Date Krzysztof Thompson MD [address] [facility] [place] [address] PCP - GeneralFamily Medicine01/09/24Team MemberRelationshipSpecialtyStart DateEnd Date Krzysztof Thompson MD [address] [facility] [place] [address] PCP - GeneralFamily Medicine01/09/24Team MemberRelationshipSpecialtyStart DateEnd Date Krzysztof Thompson MD [address] [facility] [place] [address] PCP - GeneralFamily Medicine01/09/24 Raven Sesay DO [address] [place] [address] Referring YgkqyipgjBxczenvqz95/4/24Team MemberRelationshipSpecialtyStart DateEnd Date Krzysztof Thompson MD [address] [facility] [place] [address] PCP - GeneralFamily Medicine01/09/24 Raven Sesay DO [address] [place] [address] Referring JtvzdqpluRllspyzea37/4/24Team MemberRelationshipSpecialtyStart DateEnd Date Krzysztof Thompson MD [address] [facility] [place] [address] PCP - GeneralFamily Medicine01/09/24 Raven Sesay DO [address] [address] Referring JsohkphwzJcgpqehoj87/4/24Team MemberRelationshipSpecialtyStart DateEnd Date Krzysztof Thompson MD [address] [place] [address] PCP - GeneralFamily Medicine01/09/24 Raven Sesay DO [address] [address] Referring BqsimpejkDhgxlngwy76/4/24Team MemberRelationshipSpecialtyStart DateEnd Date Krzysztof Thompson MD [address] [place] [address] PCP - GeneralFanely Medicine01/09/24 Raven Sesay DO [address] [place] [address] Referring WrypklchzSttyymzzq86/4/24Team MemberRelationshipSpecialtyStart DateEnd Date Krzysztof Thompson MD PCP - General7Team MemberRelationshipSpecialtyStart DateEnd Date Krzysztof Thompson MD PCP - General7/02/24Team MemberRelationshipSpecialtyStart DateEnd Date Krzysztof Thompson MD PCP - General7/02/24Team MemberRelationshipSpecialtyStart DateEnd Date Krzysztof Thompson MD [facility]03/15/17Team MemberRelationshipSpecialtyStart DateEnd Krzysztof Flores MD [facility]03/15/17 Team Status: Inactive Member Role Status [...] 13, 2025Team MemberRelationshipSpecialtyStart DateEnd Krzysztof Flores MD [place] [address]Team MemberRelationshipSpecialtyStart DateEnd Krzysztof Flores MD PCP - [...] bleeding, last colon with [facility]. Sanchez at [facility] in 4Reason CommentsEncopresisBowel Incontinence, last seen 12/25/24 [...] BE BASED ON THE PRIMARY CLINICAL RECORDS. [facility]. provides no warranty or guarantee of the accuracy or completeness of information in this document.
[2025-08-13 13:43] LABS: Alanine Aminotransferase 35 U/L (14-59); Albumin Globulin Ratio 0.7; Albumin Level 3.1 g/dL (3.4-5.0); Alkaline Phosphatase 172 U/L (46-116); Anion Gap 14.7; Aspartate Amino Transferase 24 U/L (15-37); Blood Urea Nitrogen 33.0 mg/dL (7.0-18.0); Calcium 9.2 mg/dL (8.5-10.1); Carbon Dioxide 23.9 mmol/L (21.0-32.0); Chloride 110 mmol/L (98-107); Estimated GFR (African America 24 (>=60 mL/min/1.73m^2); Estimated GFR (Non-African Ame 19 (>=60 mL/min/1.73m^2); Globulin 4.4 g/dL; Glucose 96 mg/dL (74-106); Potassium 4.6 mmol/L (3.5-5.1); Sodium 144 mmol/L (136-145); Total Protein 7.5 g/dL (6.4-8.2)
[2025-08-13 13:49] LABS: Hematocrit 39.6 % (36.0-48.0); Hemoglobin 12.3 g/dL (12.0-16.0); Immature Granulocytes Abs Auto 0.04 10^3/uL (0.00-0.03); Immature Granulocytes Pct Auto 0.3 % (0.0-0.5); Lymphocytes Absolute Auto 2.6 10^3/uL (1.2-3.8); Mean Corpuscular HGB Conc 31.1 g/dL (29.9-35.2); Mean Corpuscular Hemoglobin 31.8 pg (26.7-34.0); Mean Corpuscular Volume 102.3 fL (81.0-99.0); Platelet Count 254 10^3/uL (150-450); Red Blood Count 3.87 10^6/uL (4.20-5.40); White Blood Count 12.0 10^3/uL (4.0-11.0)
[2025-08-13 13:55] LABS: INR 1.03; Prothrombin Time 10.8 sec (9.0-11.6)
== END 2025-08-13 13:00 | disposition home or self-care (01) ==
PROVIDERS: PCP Family Medicine
DX: K80.10 Calculus of gallbladder with chronic cholecystitis without obstruction (principal); R23.3 Spontaneous ecchymoses
CPT/HCPCS: 36415; 80053; 85025; 85610

== ENCOUNTER 2025-09-08 09:05 | Outpatient (OUT) | payer MEDICARE, SELFPAY ==
--- OUTSIDE RECORDS SUMMARY | 2025-05-01 05:50 | XMS_ITS ---
Author Organization [facility] Address [address] [place] [address] Care Team Providers Care Line O Scribe Operator Name Role Phone MarioAlvaro oconnor Primary Care Provider Yael Joseph [phone] REASON FOR VISIT L1-5 DECOMPRESSION AND FUSION. L4-5 TLIF. [facility], 05/05 Encounters Encounter Location Date Provider Diagnosis [facility] [address] [place] [phone] 05/01/2025 Yael Atwood Plan Of Treatment No Information Progress Notes * EDIN SAMANIEGO ADOB: [birth year] (75 yo F)Acc No.[id number]:05/01/2025 Patient:?EDIN SAMANIEGO :?Yael Cano MD, PhDDOB:1950 ???Age:75 Y???Sex:FemaleDate:05/01/2025Phone:[phone]:[address] [place], [place] [phone]:Alvaro Harp Subjective: * Chief Complaints: * 1 . L1-5 DECOMPRESSION AND FUSION. L4-5 TLIF. [facility], 05/05. * Medical History: Objective: * Vitals: Assessment: Plan: * Treatment: Forms: * Images: * Electronic signature of Yael Atwood MD, PHD on 09/08/2025 at 09:08 AM EST Sign off status: Pending * Provider: Deric Cano MD, PhD Date: 0 05/01/2025 Generated for Printing/Faxing/eTransmitting on:?09/08/2025 09:08 AM EST
--- OUTSIDE RECORDS SUMMARY | 2025-05-05 00:10 | XMS_ITS ---
Author Organization [facility] Address [address] [place] [address] Care Team Providers Care Paper Box Cutter Name Role Phone Alvaro Harp Primary Care Provider Yael Joseph Unavailable [phone] REASON FOR VISIT L1-S1 DECOMPRESSION , L1-5 POSTERIOR FUSION 05/05, [facility] Encounters Encounter Location Date Provider Diagnosis [facility] Surgery Scheduling [address] [place] [address] 05/05/2025 Yael Atwood Plan Of Treatment No Information Progress Notes * EDIN SAMANIEGO ADOB: [birth year] (75 yo F)Acc No.[id number]:05/05/2025 Patient:?EDIN SAMANIEGO :?Yael Cano MD, PhDDOB:1950 ???Age:75 Y???Sex:FemaleDate:05/05/2025Phone:[phone]:[address] [place], [place] [id number]:Alvaro Harp * Images: * Electronic signature of Yael Atwood MD, PHD on 09/08/2025 at 09:08 AM EST Sign off status: Pending * Provider: Deric Cano MD, PhD Date: 0 05/05/2025 Generated for Printing/Faxing/eTransmitting on:?09/08/2025 09:08 AM EST
--- OUTSIDE RECORDS SUMMARY | 2025-06-18 08:10 | XMS_ITS ---
Author Organization [facility] Address [address] [place] [address] Care Team Providers Care Process Coordinator Name Role Phone MarioAlvaro oconnor Primary Care Provider Yael Joseph [phone] REASON FOR VISIT L1-5 DECOMPRESSION AND FUSION. L4-5 TLIF. [facility], 05/05 Encounters Encounter Location Date Provider Diagnosis [facility] [address] [place] [phone] 06/18/2025 Yael Atwood Plan Of Treatment No Information Progress Notes * EDIN SAMANIEGO ADOB: [birth year] (75 yo F)Acc No.[id number]:06/18/2025 Progress Notes Patient: EDIN BILLY :?Yael Cano MD, PhDDOB:1950 ???Age:75 Y???Sex:FemaleDate:06/18/2025Phone:[phone]:[address] [place], [place] [id number]:Alvaro Harp Subjective: * Chief Complaints: * 1 . L1-5 DECOMPRESSION AND FUSION. L4-5 TLIF. [facility], 05/05. * Medical History: Objective: * Vitals: Assessment: Plan: * Treatment: Forms: * Images: * Electronic signature of Yael Atwood MD, PHD on 09/08/2025 at 09:08 AM EST Sign off status: Pending * Provider: Deric Cano MD, PhD Date: Generated for Printing/Faxing/eTransmitting on:?09/08/2025 09:08 AM EST
--- OUTSIDE RECORDS SUMMARY | 2025-08-31 04:30 | XMS_ITS ---
Author Organization [facility] [place] Address [address] [place] [address] Care Team Providers Care Peeled Potato Inspector Name Role Phone Diego Harp Primary Care Provider Allergies Allergen (clinical drug ingredient) Drug/Non Drug Allergy documented on EMR Reaction Allergy Type Onset Date Status LevaquinUnknownDrug AllergyActivemeloxicamMobicUnknownDrug AllergyActive phenazopyridinePyridiumvomitingDrug AllergyActiveIodineUnknownDrug AllergyActive morphineMorphineUnknownDrug AllergyActivePenicillinUnknownDrug AllergyActive REASON FOR VISIT Presents to office with for f/u after having gallbladder out last Sunday Medications Medication SIG (Take, Route, Frequency, Duration) Notes Start Date End Date Status Myrbetriq 50 MG 1 tablet Orally Once a day; Dura tion: 30 days 5ActiveMetoprolol Tartrate 25 MG1 tablet with food Orally Twice a day; Duration: 90 days03/27/2024ctiveProtonix 40 MG1 tablet Orally bid; Duration: 90 daysActivePlavix 75 MG1 tablet Orally Once a day; Duration: 90 daysActiveVitamin D3 50 MCG (1999)1 capsule Orally Once a day; Duration: 90 days03/03/2025 ActiveCalciumActiveAspirin Low Dose AdultActive Social History Tobacco Use: Social History Observation Description Date Details (start date - stop date) Never Smoker NA - NA Tobacco Use/Smoking Question Answer Notes Patient is a nonsmoker AUDIT-C (Standard) Question Answer Notes Did you have a drink containing alcohol in the p ast year? No Lraapl0CgfhyyawaftmweKuaywhhn Problems Problem Type SNOMED Code ICD Code Onset Dates Problem Status W/U Status Risk Notes Problem Cholelithiasis (984348879) Cholelithiasis (K80.20) Activeconfirmed Vital Signs Blood pressure systolic 136 mm Hg 08/31/20 25 Blood pressure diastolic 76 mm Hg 025 Height 63 in 08/31/2025 Weight 121.6 lbs 08/31/2025 BMI 21.54 kg/m2 08/31/2025 Encounters Encounter Location Date Provider Diagnosis [facility] [address] [place] [address] 08/31/2025 Diego Harp Esophageal varices without bleeding I85.00 and Cholelithiasis K80.20 Assessments Encounter Date Diagnosis (ICD Code) Assessment Notes Treatment Notes Treatment Clinical Notes Section Notes 08/31/2025 Esophageal varices without bleed ing (ICD-10 - I85.00) 08/31/2025holelithiasis (ICD-10 - K80.20) Plan Of Treatment No Information Progress Notes * KATHYLiat MARTÍNEZty ADOB: [birth year] (75 yo F)Acc No.[id number]:08/31/2025 Progress Note Patient: Sheila BILLY :?Alvaro Harp ([facility]), MDDOB:1950???Age: 75 Y???Sex:FemaleDate:08/31/2025Phone:[phone]:[address] [place] [id number] In:09:20 AM ESTCheck Out:10:12 AM EST Subjective: * Chief Complaints: * P resents to office with for f/u after having gallbladder out last Sunday * HPI: ???General:? Gallbladder - feels much better Low back pain - but much better. * ROS: ???EENT:?hearing changes?denies.?visual changes?denies. non-healing mouth sores?denies.?swollen glands or neck lumps?denies.?hoarseness?denies.?sore throat?denies.?difficulty swallowing?denies.?nose bleeds?denies.?nasal congestion?denies.?ear ache?denies.?ear discharge denies.?ringing in ears?denies.?light sensitivity?denies.?eye pain?denies.?blurring?denies.?eye irritation?denies.?double vision?denies. vision loss?denies.?General/Constitutional:?Sweats:?Denies.?Fatigue?denies.?Sleep proble ms?denies.?Anorexia?denies.?Malaise?denies.?Weight loss?denies. Fatigue or Weakness?denies.?Fever or Chills?denies.?Cardiovascular:?Shortness of Breath w/lying flat?denies.?Lightheadedne ss/dizziness?denies.?Chest tightness/ heavy pressure?denies.?Swelling of legs, a nkles, or feet?denies.?Waking up with shortness of breath?denies.?Chest pain&#16 0;denies.?Palpitations?denies.?Weight gain?denies.?Respiratory:?Chronic or frequent cough?denies.?Coughing up blood&#1 60;denies.?Difficulty breathing?denies.?Productive cough?denies.?Snoring&#1 60;denies.?Shortness of breath that awakens from sleep (PND)?denies.?Chest pain? denies.?Sputum production?denies.?Wheezing?denies.?Musculoskeletal:?Joint pain?denies.?Joint Fluid?denies.?Backpain?denies.?Knee pain?denies.?Neck pain?denies.?Joint Stiffness?denies.?Muscle cramps?denies.?Weakness of muscles?denies.?Arthritis?denies.?Muscle aches?denies.?Pain in shoulder(s)?denies.?Swollen joints?denies.? * Active Problem List E11.9 Type 2 diabetes denise itus without complications Modified On:10/25/2023 Status:fcufjtgnaF07.8Other transient cerebral ischemic attacks and related syndromes Modified On:12/28/2022 Status:vbnxryrtnI17.71Causalgia of right lower limb Modified On:12/28/2022 Status:mlnjeuqblZ73.92Asymptomatic varicose veins of left lower extremity Modified On:12/28/2022 Status:neszbxayoC93.9Bronchiectasis, uncomplicated Modified On:01/01/2023 Status:imaatqzzoO13.0Mitral regurgitation Modified On:12/28/2022 Status:zycpglfweS37.9GERD (gastroesophageal reflux disease) Modified On:12/28/2022 Status:sdrnewxftL53.12Cervical radiculopathy Modified On:12/28/2022 Status:mvgybxhsyC14.1Tricuspid regurgitation Modified On:12/28/2022 Status:pqdlagcflO84.29Carotid artery stenosis Modified On:12/28/2022 Status:pzncezfcrN69.9Peripheral edema Modified On:12/28/2022 Status:xdodzumisT95.0Osteoporosis Modified On:12/28/2022 Status:jaktoyhbwG50.02Cervical spinal stenosis Modified On:12/28/2022 Status:idylwtoneH15.70Gastritis Modified On:12/28/2022 Status:btgmkfbhoJ78.1Chronic pancreatitis Modified On:12/10/2023 Status:efzsxtvngG36.36DDD (degenerative disc disease), lumbar Modified On:12/28/2022 Status:uzokqcpbnC92.1Dysarthria Modified On:03/22/2023 Status:rdnlhtbocK47.30DDD (degenerative disc disease), cervical Modified On:12/28/2022 Status:cpwgzlveeI96.209Tension headache Modified On:08/22/2023 Status:ryddhgswrV29.812Cervical spondylosis without myelopathy Modified On:12/28/2022 Status:qfovsekxxG32.30Diverticulosis of colon Modified On:12/28/2022 Status:egvlyqedqM79.30Degenerative cervical disc Modified On:12/28/2022 Status:oagifsoofT22.7Chronic gastric ulcer Modified On:12/28/2022 Status:kcomfrvmmP53.9COPD, mild Modified On:12/28/2022 Status:ckrwddwyvQ59.1Mass in neck Modified On:12/28/2022 Status:sxyptvibwP91.50Parietal lobe infarction Modified On:01/01/2023 Status:hostjifzsG73.90Osteoarthrosis, unspecified whether generalized or localized, other specified sites Modified On:12/28/2022 Status:baxdygkblR59.838Spasm of cervical paraspinous muscle Modified On:12/28/2022 Status:lxhxjrebnS50.50Gastritis, chronic Modified On:12/10/2023 Status:kkuulccvkK14.09Abdominal mass of other site Modified On:12/28/2022 Status:puhfgdzkxB85Lonqqljqs Hypertension Modified On:10/25/2023 Status:yblvkukvuZ41.12Spondylolisthesis, cervical region Modified On:12/28/2022 Status:lvaorbcyqP29.2Chronic kidney disease, stage 2 (mild) Modified On:12/28/2022 Status:afpvznxmyL36.1COVID-19 Modified On:12/28/2022 Status:umgxsljxaM60.90Esophagitis Modified On:12/28/2022 Status:gfkuyuyslA77.0Edema of right upper arm Modified On:12/28/2022 Status:wwrqqcsscZ20.50Cerebral infarction due to unspecified occlusion or stenosis of unspecified cerebral artery Modified On:12/28/2022 Status:jtfaapducG98.89Parietal lobe infarction Modified On:08/15/2023 Status:zjhggtedfX63Fupuyycre (primary) hypertension Modified On:12/28/2022 Status:oyasppdltA24.9Gastro-esophageal reflux disease without esophagitis Modified On:12/01/2022 Status:qtlinagyaZ96.00Hypercholesterolemia Modified On:12/28/2022 Status:lppttnldpZ24.10Pulmonary fibrosis, unspecified Modified On:01/01/2023 Status:nbqpmhbqqG04.8Other specified noninfective disorders of lymphatic vessels and lymph nodes Modified On:01/01/2023 Status:pnsbjrvrlP86.19Other eosinophilia Modified On:01/01/2023 Status:azbtcdgqgV72.29Other secondary pulmonary hypertension Modified On:01/01/2023 Status:mqnalnyfrR06.9Diaphragmatic hernia without obstruction or gangrene Modified On:01/01/2023 Status:zrbhzkdwkX30.82Chronic fatigue, unspecified Modified On:01/09/2023 Status:qfjnnkjxaN63.672Pain in left foot Modified On:01/18/2023 Status:dahtofpwoC77.9Hair loss Modified On:03/22/2023 Status:giotbzowbD98.9Seborrheic dermatitis, unspecified Modified On:05/25/2023 Status:amzyzwiazZ22.672Left foot pain Modified On:06/08/2023U Status:pmlrvohapH92.9Acute bronchiolitis Modified On:10/03/2023 Status:vkxtxmmutA51.20Gallstone Modified On:01/04/2024 Status:keahnbtlhI51.10Diverticulosis of small intestine without perforation or abscess without bleeding Modified On:02/20/2024U Status:iqpcbrvofI50.9Irritable bowel syndrome without diarrhea Modified On:02/20/2024U Status:ddchcopbhP32.552Hip pain, acute, left Modified On:02/26/2024U Status:yfvvyfrsjW38.90Diverticular disease Modified On:03/27/2024 Status:rzboohaecT23.699Diverticular stricture Modified On:03/27/2024 Status:loexvosndG36.0Brachial plexopathy Modified On:04/09/2024U Status:bdbqgksoaY35.22Ulnar neuropathy of left upper extremity Modified On:04/09/2024U Status:pwwhhuclsG65.90Pancreatitis, acute Modified On:05/02/2024U Status:qhxqeatazF58.552Left hip pain Modified On:05/22/2024 Status:rjtkzuyngF78.0Aphthous ulcer Modified On:05/28/2024U Status:nuwsvhacsS55.829Elevated WBCs Modified On:06/06/2024U Status:jsbvmsheqU76.30Acute worsening of stage 3 chronic kidney disease Modified On:06/06/2024U Status:knlrzrxreF75BL (high blood pressure) Modified On:06/06/2024U Status:gauqmpcolA94.532Left wrist pain Modified On:07/30/2024 Status:xkynydgzqD34.9Right upper lobe pneumonia Modified On:10/20/2024 Status:ketwyrfiwB15.16Lumbar radiculopathy Modified On:10/30/2024 Status:kotpsspopN68.10Coronary artery disease Modified On:11/10/2024U Status:jfngtldytF44Pzrcit essential hypertension Modified On:11/10/2024 Status:oboaldgxmP93.9Congestive heart failure (CHF) Modified On:11/17/2024 Status:mrnfuszqoZ23.10CAD (coronary artery disease) Modified On:11/17/2024 Status:btrufcbzvH14.0Dysuria Modified On:12/01/2024U Status:wrgqpggncS67.0UTI (urinary tract infection) Modified On:12/01/2024U Status:bevzypmnbP47.0UTI (urinary tract infection), uncomplicated Modified On:12/01/2024 Status:qrzeslwqlB93.9Bronchiectasis Modified On:12/16/2024 Status:jwfvcfvthX84.10Spondylolisthesis Modified On:02/23/2025U Status:mrkbzwplnP03.17L-S radiculopathy Modified On:02/23/2025U Status:bhlhdvbhoP28.00Esophageal varices without bleeding Modified On:03/02/2025U Status:vwyhpludzC81.22Chronic kidney disease due to diabetes mellitus Modified On:04/24/2025U Status:mvqbjwrphG76.4Chronic kidney disease, stage 4 (severe) Modified On:04/24/2025/U Status:wojijknwtM37.511Shoulder pain, right Modified On:05/04/2025/U Status:axjqtqjjxI93.89Pelvic pressure in female Modified On:07/08/2025/U Status:ybnklxsseB87.11Right upper quadrant abdominal pain Modified On:07/22/2025/U Status:huzpeujhmI35.89Pelvic pain syndrome Modified On:07/22/2025/U Status:bprerfmwxL08.60Cirrhosis Modified On:07/29/2025/U Status:tmngojyblV47.20Cholelithiasis Modified On:08/31/2025U Status:confirmed * Medical History: * Surgical History: C -Section Neck Surgery Back surgery Hysterectomy Cardiac Catheterization- 10/30/2006, 12/07/2018 Colonoscopy 03/26/2024Upper GI Endoscopy 07/28/24Gallbladder 08/24/25 * Hospitalization/Major Diagno stic Procedure: S troke 2022 * Family History: F ather: . M other: , Heart Disease, diagnosed with Heart Disease. S on(s): alive. 2 son(s) . . Sons: 1 , 1 living. * Social History: ???Tobacco Use:?Tobacco Use/Smoking?Patient is a?nonsmoker ???Drug/Alcohol:?AUDIT-C (Standard)?Did you have a drink containing alcohol in the past year??No ?Points?0 ?Interpretation?Negative * Medications: T akingAspirin Low Dose Adult Calcium Metoprolol Tartrate 25 MG Tablet 1 tablet with food Orally Twice a day Myrbetriq(Mirabegron ER) 50 MG Tablet Extended Release 24 Hour 1 tablet Orally Once a day Plavix(Clopidogrel Bisulfate) 75 MG Tablet 1 tablet Orally Once a day Protonix(Pantoprazole Sodium) 40 MG Tablet Delayed Release 1 tablet Orally bid Vitamin D3 50 MCG (1999 UT) Capsule 1 capsule Orally Once a day Medication List reviewed and reconciled with the patientTaking Aspirin Low Dose Adult Taking Calcium Taking Metoprolol Tartrate 25 MG Tablet 1 tablet with food Orally Twice a day Taking Myrbetriq(Mirabegron ER) 50 MG Tablet Extended Release 24 Hour 1 tablet Orally Once a day Taking Plavix(Clopidogrel Bisulfate) 75 MG Tablet 1 tablet Orally Once a day Taking Protonix(Pantoprazole Sodium) 40 MG Tablet Delayed Release 1 tablet Orally bid Taking Vitamin D3 50 MCG (1999 UT) Capsule 1 capsule Orally Once a day Medication List reviewed and reconciled with the patient * Allergies: I odine - Criticality HighLevaquin - Criticality HighMobicMorphinePenicillinPyridium: vomiting - Side Effectsno[Allergies Verified] Objective: * Vitals: W t:121.6lbs, Ht: 63 in, BP:136/76mm Hg, BMI:21.54Index, Ht-cm: 160.02 cm, Wt-k.16 kg. * Examination: ???Physical Exam: ?GENERAL:?well developed, well nourished, in no acute distress.?HEAD:?normocephalic/atraumatic.?EYES:?pupils equal, round and reactive to light, conjunctivae and sclerae normal.?EARS:?no deformity or lesion of external ear, canals and TM appear normal bilaterally, TM's intact, not inflamed with normal light reflex, hearing grossly normal to conversational speech.?NOSE:?no deformity, discharge, inflammation, or lesions. ?MOUTH:?mucous membranes moist, normal oropharynx and posterior pharynx without lesions or exudates, tongue normal, dentition normal.?NECK:?neck supple, no masses or palpable cervical nodes, trachea midline, thyroid without nodules, masses, tenderness, or enlargement.?CHEST:?no chest wall deformity, no chest wall tenderness. ?LUNGS:?normal respiratory effort and clear to auscultation, no wheezes, rales, or rhonchi, good air exchange.?CARDIO:?regular rate and rhythm, normal S1 and S2, nor murmur, rub, or gallop.?PULSES:?normal capillary refill.?ABDOMEN:?soft, non-distended, non-tender, no masses.?MUSCULOSKELETAL:?no deformity or scoliosis noted, normal range of motion, joints normal, no erythema, edema, effusion, or ecchymosis.?EXTREMITY:?no clubbing, cyanosis, edema, or deformity withnormal ROM in both upper and lower bilateral extremities.?NEUROLOGIC:?grossly normal.?MENTAL STATUS:?alert and oriented x3, normal mood and affect.? Assessment: * Assessment: 1.?Esophageal varices without bleeding - I85.00 (Primary)???2.?Cholelithiasis - K80.20??? Plan: * Treatment: * Procedure Codes: * Preventive Medicine: ??Screenings/Counseling:?FALL RISK SCREENING?Fall Risk Assessment:?No falls in the past year * * Sign off status: CompletedVisit Status:?CHK (Check Out) true * Provider: Becky Harp ([facility])MD Date: 11/01/2024 Generated for Printing/Faxing/eTransmitting on:?09/08/2025 09:08 AM EST History and Physical Notes * HPI (History of Present Illness) CategorySub-CategoryDetailNotesCategory NotesGeneral Gallbladder - feels much better Low back pain - but much better Examination CategorySub-CategoryDetailNotesCategory NotesPhysical ExamGENERAL:well developed, well nourished, in no acute distressHEAD:normocephalic/atraumatic EYES:pupils equal, round and reactive to light, conjunctivae and sclerae normal EARS:no deformity or lesion of external ear, canals and TM appear normal bilaterally, TM's intact, not inflamed with normal light reflex, hearing grossly normal to conversational speechNOSE:no deformity, discharge, inflammation, or lesionsMOUTH:mucous membranes moist, normal oropharynx and posterior pharynx without lesions or exudates, tonguenormal, dentition normalNECK:neck supple, no masses or palpable cervical nodes, trachea midline, thyroid without nodules, masses, tenderness, or enlargementCHEST:no chest wall deformity, no chest wall tendernessLUNGS:normal respiratory effort and clear to auscultation, no wheezes, rales, or rhonchi, good air exchangeCARDIO:regular rate and rhythm, normal S1 and S2, nor murmur, rub, or gallopPULSES:normal capillary refillABDOMEN:soft, non-distended, non-tender, no massesMUSCULOSKELETAL:no deformity or scoliosis noted, normal range of motion, joints normal, no erythema, edema, effusion, or ecchymosisEXTREMITY:no clubbing, cyanosis, edema, or deformity with normal ROM in both upper and lower bilateral extremitiesNEUROLOGIC:grossly normalMENTAL STATUS:alert and oriented x3, normal mood and affect
--- OUTSIDE RECORDS SUMMARY | 2025-09-01 09:15 | XMS_ITS | Encounter Summary ---
Author Organization [facility] Address [address] [place] [address] Care Team Providers Care Linux Security Administrator Name Role Phone Alvaro Harp MD Primary Care Provider [phone] Reason for Visit * ReasonCommentsPost-opS/P robotic cholecystectomy 08/24/2025. Encounter Details DateTypeDepartmentCare Team (Latest Contact Info)Ynvnsxthogh80/23/2025 9:15 AM ESTOffice Visit [facility] [address] [place] [address] Patricio Maria MD [address] [address] Postoperative visit (Primary Dx) Social History Tobacco UseTypesPacks/DayYears UsedDateSmoking Tobacco: NeverSmokeless Tobacco: Never Tobacco Cessation:Counseling Given: Not Answered PHQ-2AnswerDate RecordedPatient Health Questionnaire-2 Mrerm79511/02/2024 Humiliation, Afraid, Rape, and Kick questionnaireAnswerDate RecordedWithin the last year, have you been afraid of your partner or ex-partner?No09/01/2025 Emotionally AbusedNot on file09/01/2025Physically AbusedNot on file09/01/2025 Sexually AbusedNot on file09/01/2025CommentsUnknownSex and Gender InformationValueDate RecordedSex Assigned at MxieaUqacsw57/30/2025 3:49 PM EDT Legal ScsRzknrl90/29/2022 10:03 PM EDTGender PycixogdAusgna24/30/2025 3:49 PM EDTSexual OrientationHeterosexual or Atbeliwh33/30/2025 3:49 PM EDTdocumented as of this encounter Last Filed Vital Signs Vital SignReadingTime TakenCommentsBlood Vfqdnoix204/9209/01/2025 9:20 AM EST Lqmsi372109/01/2025 9:20 AM IPUJcxuyyxugpt08.7 ??C (98 ??F)09/01/2025 9:20 AM EST Respiratory Htlj807511/02/2024 9:20 AM ESTOxygen Xyanbpccup22%09/01/2025 9:20 AM ESTInhaled Oxygen Concentration--Tlvqvn85.2 kg (123 lb 12.8 oz)09/01/2025 9:20 AM ZDPNoopfz457.4 cm (5')09/01/2025 9:20 AM ESTBody Mass Index24.18111/02/2024 9:20 AM ESTdocumented in this encounter Functional Status documented as of this encounter Progress Notes * Patricio Maria MD - 09/01/2025 9:15 AM EST Subjective Patient ID: Sheila Mac is a 75 y.o. female who presents for Post-op (S/P robotic cholecystectomy 08/24/2025. ). HPI 75 years old white female status post robotic cholecystectomy on August 24, 2025. Tolerating to low-fat diet, normal bowel meant, complaining of epigastric pain and left shoulder pain. Review of Systems Constitutional: Negative. HENT: Negative. Eyes: Negative. Respiratory: Positive for shortness of breath. Cardiovascular: Negative. Gastrointestinal: Positive for constipation. Endocrine: Negative. Genitourinary: Negative. Musculoskeletal: Positive for arthralgias. Skin: Positive for wound. Allergic/Immunologic: Negative. Neurological: Negative. Hematological: Bruises/bleeds easily. Objective Visit Vitals BP (!) 148/92 (BP Location: Left arm, Patient Position: Sitting, BP Cuff Size: Adult) Pulse 50 Temp 36.7 ??C (98 ??F) (Temporal) Resp 16 Physical Exam HENT: Head: Atraumatic. Cardiovascular: Rate and Rhythm: Normal rate. Pulmonary: Effort: Pulmonary effort is normal. Abdominal: General: Abdomen is flat. Comments: The incisions are dry, clean, intact. Musculoskeletal: Cervical back: Neck supple. Neurological: Mental Status: She is alert. Final Diagnosis A. Gallbladder, cholecystectomy: - Chronic cholecystitis with cholelithiasis. at 1348 EST Assessment/Plan Postoperative visit Follow-up as needed No diagnosis found. No orders of the defined types were placed in this encounter. No results found for this or any previous visit (from the past 36 hours). No follow-ups on file. documented in this encounter Plan of Treatment DateTypeDepartmentCare Team (Latest Contact Info)Kazvnnreweq13/02/2026 9:[address] [facility] [address] [place] [address] Elio Youssef MD [address] [place] [phone] documented as of this encounter Visit Diagnoses Diagnosis Postoperative visit- Primary documented in this encounter Care Teams Team MemberRelationshipSpecialtyStart DateEnd Alvaro Harp MD [address] [facility] [address] [place] [address] PCP - General12/14/22documented as of this encounter
--- NOTE | 2025-09-08 09:00 | CA_ITS ---
Patient Name: EDIN SAMANIEGO MR#: [id number] : 1950 Exam Date: 09/08/2025 Ordering Doctor: DR KRZYSZTOF THOMPSON . ECHOCARDIOGRAM REPORT PROCEDURE: CA ECHO DOPPLER COMPLETE INDICATIONS: Shortness of breath, COPD COMPARISON: None. DESCRIPTION: COMPLETE ECHOCARDIOGRAM Real-time transthoracic echocardiography with 2D, M-mode, spectral and color flow Doppler performed. QUALITY: Technical quality was good. LEFT VENTRICLE: Normal chamber size. Proximal septal hypertrophy (sigmoid septum). Moderately to severely reduced systolic function. There is global hypokinesis. Estimated left ventricular ejection fraction is 30-35%. Strain peak A4C -11%, A2C 19%, APLAX -13%, Avg 12%. Longitudinal strain values are reduced. LV EF: Moderately to severely reduced left ventricular ejection fraction, (25-35%). DIASTOLIC: Grade II diastolic dysfunction. ATRIAL SEPTUM: Visually appears intact. LEFT ATRIUM: Moderate dilatation. RIGHT ATRIUM: Mild dilatation. RIGHT VENTRICLE: Normal chamber size. Normal right ventricular systolic function. TRICUSPID VALVE: Normal mobility and thickness. No stenosis with moderate regurgitation. Doppler studies reveal moderately (45-60) elevated right sided pressures. RVSP 47 mmHg MITRAL VALVE: Normal mobility and thickness. No evidence of mitral valve stenosis. There is no mitral annular calcification. Mild to moderate mitral regurgitation. AORTIC VALVE: Normal trileaflet appearance. Thickened aortic valve. Mildly diminished mobility. Doppler velocity suggest mild aortic valve stenosis. DVI 0.46, LUZ 1.8 cm2, Vmax 1.17 m/s. No aortic regurgitation. AORTIC ROOT: Aortic root is normal in size. Ascending aorta is mildly dilated measuring 3.8 cm. Aortic arch is normal in size. PULMONIC VALVE: Normal thickness and mobility. No stenosis. Trivial regurgitation. PERICARDIUM: No evidence of pericardial effusion. IVC: Collapses with inspiration. PLEURA: CONCLUSION: 1. Normal left ventricular size with moderately to severely reduced systolic function. Estimated LVEF is 30-35%. 2. Normal right ventricular size and systolic function. 3. Mild to moderate biatrial dilatation. 4. Grade 2 diastolic dysfunction. 5. Mild aortic valve stenosis. 6. Mild to moderate mitral regurgitation. 7. Moderate tricuspid regurgitation. 8. Moderately elevated right-sided pressures. RVSP is 47 mmHg. Adult Echocardiography Procedure Report Left Ventricle LVEDD (3.7 - 5.6 cm): 4.48 cm LVESD (2.2 - 4.0 cm): 3.59 cm LVIVS thickness (0.6 - 1.2 cm): 1.16 cm LVPW thickness (0.5 - 1.0 cm): 0.71 cm e': 0.06 m/s E - e': 12.42 LVOT Max Gradient: 1.18 mm[Hg] LVOT Area (cm2): 0.54 m/s Peak Velocity (LVOT): 0.54 m/s Mean Velocity (LVOT): 0.40 m/s LVOT Diameter 2.31 cm Left Ventricular Ejection Fraction: 30-35 % Left Atrium LA Volume Index (2D A2C): 36.59 ml/m2 Left Atrium Systolic Dimension: 2.78 cm Mitral Valve MV E to A Ratio: 0.76 Mitral Valve A-Wave Peak Velocity: 0.92 m/s Mitral Valve E-Wave Peak Velocity: 0.70 m/s Right Ventricle Aorta AO Root Diam: 3.60 cm Ascending Ao Diam: 3.58 cm Aortic Valve AoV Area (Peak Chris): 1.93 cm2, 1.93 cm2 AoV Area (VTI): 1.82 cm2, 1.82 cm2 Peak Velocity(Antegrade Flow): 1.17 m/s, 1.13 m/s Peak Gradient(Antegrade Flow): 5.48 mm[Hg], 5.08 mm[Hg] Mean Velocity(Antegrade Flow): 0.82 m/s, 0.69 m/s Mean Gradient(Antegrade Flow): 3.05 mm[Hg], 2.31 mm[Hg] Velocity Time Integral: 29.39 cm, 23.55 cm Tricuspid Valve Peak Velocity (Regurgitant Flow): 2.98 m/s, 3.33 m/s Pulmonic Valve Mean Gradient: 0.74 mm[Hg] Mean Velocity: 0.40 m/s Peak Velocity: 0.67 m/s Peak Gradient: 1.78 mm[Hg] Right Atrium Right Atrium Systolic Pressure: 47.20 ml, 47.20 ml Dictated by: Bong Gaspar M.D. on 09/08/2025 at 18:23 Approved by: Bong Gaspar M.D. on 09/08/2025 at 18:34
--- OUTSIDE RECORDS SUMMARY | 2025-09-08 09:07 | XMS_ITS | CCD ---
Author Organization Unknown Care Team Providers Care Superintendent Of Schools Name Role Phone Unavailable Primary Care Provider Unavailabl e Unavailable Chronic Care Management Unavaila ble Summary Purpose DataExchange Insurance Providers Payer name Policy type / Coverage type Covered alliance party ID Effective Begin Date Effective End Date [facility] [id number] Unknown Unknown Family History Family History data not found Medication Administered No Medication Administered data Reason For Visit No Reason For Visit data Medical Equipment No Medical Equipment data Advance Directives No Advance Directive data
--- OUTSIDE RECORDS SUMMARY | 2025-09-08 09:08 | XMS_ITS | Clinical Summary ---
Author Organization [facility] Address [address], [address] [place] [address] Care Team Providers Care Registration Scheduling Specialist Name Role Phone Alvaro Harp MD Primary Care Provider [phone] Allergies Active AllergyReactionsCriticalityNoted FybnUjuzntdqRimrbts47/06/2018Morphine 07/16/20187652Zhwmavjniaw17/06/2018 Medications MedicationSigDispense QuantityRefillsLast FilledStart DateEnd DateStatus gabapentin [...] InformationValueDate RecordedSex Assigned at BirthNot on fileLegal IqoYnzjjb25/10/2013 8:58 PM EST Gender IdentityNot on fileSexual OrientationNot on file Last Filed Vital Signs Vital SignReadingTime TakenCommentsBlood Pressure--Pulse--Mkfxqcaoyej53.4 ??C (97.6 ??F)10/25/2018 2:46 PM ESTRespiratory Rate--Oxygen Saturation--Inhaled Oxygen Concentration--Mknerv58.6 kg (160 lb)10/25/2018 2:46 PM RSBRtzysa467 cm (5' 3 )10/25/2018 2:46 PM ESTBody Mass Index28.34010/25/2018 2:46 PM EST Plan of Treatment Not on file Insurance Care Teams Team MemberRelationshipSpecialtyStart Date Alvaro Harp MD [address] [place] [address] PCP - GeneralFamily Mzwwhosd22/17/18
--- OUTSIDE RECORDS SUMMARY | 2025-09-08 09:08 | XMS_ITS | Clinical Summary ---
Author Organization [facility] Address [address] [place] [address] Care Team Providers Care Dry Ice Maker Name Role Phone Alvaro Harp MD Primary Care Provider [phone] Allergies Active AllergyReactionsCriticalityNoted SoccJasdezwpZbwEjkzilfg52/14/2017 IV DYE Wfdktmf54/06/2018Iodinated Contrast Media12/07/20226856Rqwurqzu25/30/2023Morpholine GcfibnvrbQiumy09/14/2017Nsaids (Non-Steroidal Anti-Inflammatory Drug)12/07/2022 Cxfughqcmpm88/30/2023 Medications MedicationSigDispense QuantityRefillsLast FilledStart DateEnd DateStatus sucralfate [...] by mouth two times daily. 180 tablet 5Active ascorbic acid (Vitamin C) 1,000 mg tablet Take 1,000 mg by mouth in the morning. WITH VIT M4Nwmdru rosuvastatin (Crestor) 20 mg tablet Take 20 [...] breakfast and with evening meal. 180 tablet /11/2024Discontinued(Med List Cleanup) metoprolol tartrate (Lopressor) 25 mg tablet Take 25 mg by mouth two times daily./11/2024Discontinued(Reorder) acetaminophen (Tylenol) 500 mg tablet Indications:Calculus of gallbladder with cholecystitis without biliary obstruction, unspecified cholecystitis acuityTake 2 tablets (1,000 mg) by mouth every 6 (six) hours if needed for mild pain (1-3 pain score) forup to 10 days. 30 tablet /Expired oxyCODONE (Oxy-IR) 5 mg immediate release capsule Indications:Calculus of gallbladder with cholecystitis without biliary obstruction, unspecified cholecystitis acuityTake 1 capsule (5 mg) by mouth every 6 (six) hours if needed for severe pain (8-10 pain score) for up to 3 days. Do not drink alcohol or drive while taking or under the influence of this medication. 12 capsule /Expired ondansetron ODT (Zofran-ODT) 4 mg disintegrating tablet Indications:Calculus of gallbladder with cholecystitis without biliary obstruction, unspecified cholecystitis acuityTake 1 tablet (4 mg) by mouth every 8 (eight) hours if needed for nausea or vomiting for up to 7 days. 20 tablet /23/2025Expired Active Problems ProblemNoted DateDiagnosed DateArthropathy of thoracic facet joint08/12/2025 Blood in stool08/12/2025hronic pain08/12/2025Left lumbosacral radiculopathy 08/12/2025Spondylolisthesis, lumbar ujcdup7908/12/2025Duodenal diverticulum 08/12/2025Hiatal ypteih0608/12/2025Irritable bowel syndrome with constipation 08/12/20256518Ahddanp80/03/5275Vksvafivujwowk21/03/2025Screening for colon cancer 08/12/2025Left shoulder pain08/12/2025Shoulder pain, right08/12/2025Stomach ulcer08/12/2025Thoracic back pain08/12/2025alculus of gallbladder with cholecystitis without biliary zvbmrxraicl96/02/2025Internal derangement of right knee4Primary osteoarthritis of left knee4Costochondritis 6948Ymodwxxrofqnnt60/03/6568Ikoovnypilvk35/03/2019Chronic pancreatitis 09/06/2018Degeneration of lumbar intervertebral disc05/27/2010Pure srmcqxbwxealcndysyzb08/09/2010therosclerosis of coronary xbplfa2002/11/2010 Chronic systolic heart nedjbnc2502/11/2010Diabetes mellitus without complication 02/11/2010Disorder of autonomic nervous qyjuzu9102/11/2010GERD (gastroesophageal reflux disease)02/11/2010 Encounters DateTypeDepartmentCare EoorNddjxkzkigv04/23/2025 9:15 AM ESTOffice Visit [facility] [address] [place] [address] Patricio Maria MD Postoperative visit (Primary Dx)08/26/2025Orders Only [facility] Cardiovascular [address] [place] [address] Guera Russo MA PVC (premature ventricular contraction) (Primary Dx); Abnormal EKG110/25/2024 11:40 AM ESTAnesthesia Event [facility] Main Operating Room [address] [place] [address] Rickie Childress MD Willis, Davontae, MD 08/24/2025 11:30 AM EST - 08/24/2025 2:00 PM ESTSurgery [facility] Main Operating Room [address] [place] [address] Patricio Maria MD ROBOTIC RVZCECRGRGNRDZU58/15/2025 9:15 AM EST - 08/24/2025 4:29 PM ESTHospital Encounter [facility] Main Operating Room [address] [place] [address] Patricio Maria MD Calculus of gallbladder with cholecystitis without biliary obstruction, unspecified cholecystitis acuity Discharge Disposition: Home or Self Care ()08/24/20252019Idkpuq17/09/2025Travel 08/12/2025 3:00 PM ESTOffice Visit [facility] [address] [place] [address] Kyra Soto CNP Pre-op evaluation (Primary Dx); PVC (premature ventricular contraction); Primary hypertension; SABA (dyspnea on exertion); History of cerebrovascular accident (CVA) in adulthood; QT scufeyefkors83/02/2025 1:30 PM ESTConsult [facility] [address] [place] [address] Patricio Maria MD Calculus of gallbladder with cholecystitis without biliary obstruction, unspecified cholecystitis acuity (Primary Dx); History of CVA (cerebrovascular accident); Easy kamfzaum47/26/2025 12:15 AM EST - 08/05/2025 11:59 PM ESTHospital Encounter [facility] Radiology External Films [address] [place] [address] Discharge Disposition: Home or Self Care ()08/05/2025 12:10 AM EST - 08/05/2025 12:14 AM ESTHospital Encounter [facility] Radiology [place] [address] Discharge Disposition: Home or Self Care ()08/05/2025 12:05 AM EST - 08/05/2025 12:09 AM ESTHospital Encounter [facility] Radiology External Films [address] [place] [address] Discharge Disposition: Home or Self Care (01)08/05/2025 - 08/05/2025 12:04 AM ESTHospital Encounter [facility] Radiology External Films [address] [place] [address] Discharge Disposition: Home or Self Care ()from Last 3 Months Immunizations ImmunizationAdministration DatesNext DueCovid (Pfizer) Bivalent Booster =>12 YRS 07/13/2022Influenza, High Dose Seasonal, Preservative Free06/12/2022,06/18/2018, 06/14/2016,06/03/2015Influenza, High-dose Seasonal, Quadrivalent, Preservative Free05/30/2022,06/15/2021Influenza, injectable, quadrivalent, preservative free 05/22/2017Pfizer SARS-CoV-2 Ilpsnubtcpg38/03/2022,06/29/2021,11/17/2020, 10/12/2020Unspecified Sars-Cov-2 Gcgvcxwbnie35/03/2021 Family History RelationNameStatusCommentsFatherDeceasedMotherDeceased Social History Tobacco UseTypesPacks/DayYears UsedDateSmoking Tobacco: NeverSmokeless Tobacco: Never Tobacco Cessation:Counseling Given: Not Answered PHQ-2AnswerDate RecordedPatient Health Questionnaire-2 Zveld47511/02/2024 Humiliation, Afraid, Rape, and Kick questionnaireAnswerDate RecordedWithin the last year, have you been afraid of your partner or ex-partner?No09/01/2025 Emotionally AbusedNot on file09/01/2025Physically AbusedNot on file09/01/2025 Sexually AbusedNot on file09/01/2025CommentsUnknownSex and Gender InformationValueDate RecordedSex Assigned at LblgpXyokye41/30/2025 3:49 PM EDT Legal CqyRrrbro84/29/2022 10:03 PM EDTGender EevwdullZajmiu97/30/2025 3:49 PM EDTSexual OrientationHeterosexual or Kolhssgn58/30/2025 3:49 PM EDT Last Filed Vital Signs Vital SignReadingTime TakenCommentsBlood Yjoqylwg470/9209/01/2025 9:20 AM EST Kkeib890809/01/2025 9:20 AM FVIJqnvxuxgqya49.7 ??C (98 ??F)09/01/2025 9:20 AM EST Respiratory Mtkl993811/02/2024 9:20 AM ESTOxygen Egxsecxpoe60%09/01/2025 9:20 AM ESTInhaled Oxygen Concentration--Boayie61.2 kg (123 lb 12.8 oz)09/01/2025 9:20 AM EWRIaitsg154.4 cm (5')09/01/2025 9:20 AM ESTBody Mass Index24.18111/02/2024 9:20 AM EST Plan of Treatment DateTypeDepartmentCare Team (Latest Contact Info)Edqvqdcoaoa31/02/2026 9:00 AM ESTOffice Visit [facility] [address] [place] [address] Elio Youssef MD [address] [place] [address] Health MaintenanceDue DateLast DoneCommentsDiabetes: Hemoglobin A1C1950 Medicare Annual Wellness (AWV)1950Diabetes: Retinopathy Screening 1960Diabetes: Urine Protein Hyrcegsyb20/30/1967Zoster Vaccines (1 of 2) COVID-19 Vaccine ( season)5109/12/2021, 02/10/2022, 02/10/2022, Additional history existsDepression Cpfraxqbb65/23/2026 09/01/2025Fall Risk Zwotiztsc68dult Edwuxmt5906/21/2035 06/21/2025Pneumococcal Vaccine: 50+ SxcnqTnufjtclv17/01/2015, 07/14/2013 DhkhtcujpnhQvpcyxwxlwmo05/16/2021, 10/16/2012Colorectal Cancer Screening DiscontinuedInfluenza LrvaptvFzpqpuvfq89/12/2025, 06/19/2024, 06/05/2023, Additional history existsCT ColonographyDiscontinuedFIT-DNADiscontinuedFIT DiscontinuedFOBTDiscontinuedHIB VaccinesAged OutNo longer eligible based on patient's age to complete this topicHPV VaccinesAged OutNo longer eligible based on patient's age to complete this topicIPV VaccinesAged OutNo longer eligible based on patient's age to complete this topicMeningococcal B VaccineAged OutNo longer eligible based on patient's age to complete this topicMeningococcal VaccineAged OutNo longer eligible based on patient's age to complete this topic Rotavirus VaccinesAged OutNo longer eligible based on patient's age to complete this topicSigmoidoscopyDiscontinued Procedures Procedure NamePriorityDate/TimeAssociated DiagnosisCommentsHISTOLOGY - TISSUE FGZCSfwdbgo18/15/2025 1:23 PM EST Calculus of gallbladder with cholecystitis without biliary obstruction, unspecified cholecystitis acuity TX AN ELECTIVE ENDOTRACHEAL SXYKTVHvumjix37/15/2025 11:53 AM EST LYSIS, EXSGQRSTO51/15/2025 11:40 AM EST Calculus of gallbladder with cholecystitis without biliary obstruction, unspecified cholecystitis acuity CHOLECYSTECTOMY, ROBOT-POCYLIFH92/15/2025 11:40 AM EST Calculus of gallbladder with cholecystitis without biliary obstruction, unspecified cholecystitis acuity POCT GLUCOSE METER UNSOLICITED GWWFISKXhwvltp66/15/2025 9:51 AM EST ECG 12 LEAD UNIT FHTMQAPIUYbekjkt57/03/2025 3:04 PM EST Pre-op evaluation CT TRANSFER OF OUTSIDE ERNSHFbqduns31/26/2025 12:[address] TRANSFER OF OUTSIDE STXXAPzjsztr25/26/2025 12:10 AM EST US TRANSFER OF OUTSIDE KYVNQCjfgmcf57/26/2025 12:05 AM EST US TRANSFER OF OUTSIDE SBRHJTjqryyg33/26/2025 12:00 AM EST from Last 3 Months Results * Histology - tissue exam (08/24/2025 1:23 PM EST)ComponentValueRef RangeTest MethodAnalysis TimePerformed AtPathologist SignatureCase ReportSurgical Pathology ?Case: [id number] ? Authorizing Provider: ??Patricio Maria MD ? Collected: ? 08/24/2025 1323 ? Ordering Location: ? [facility] Main Operating Room ?? Received: ?08/24/2025 1509 ? Pathologist: ? Berny Chu MD ? Specimen: ?Gallbladder ? 08/28/2025 1:48 PM [facility])Final DiagnosisA. Gallbladder, cholecystectomy: - Chronic cholecystitis with cholelithiasis.08/28/2025 1:48 PM [facility]) at 1348 ESTClinical InformationPost-Op Diagnoses K80.10 - Calculus of gallbladder with cholecystitis without biliary obstruction, unspecified cholecystitis acuity [ICD-10-CM] 08/28/2025 1:48 PM [facility])Gross DescriptionA. Gallbladder. Received in formalin, labeled Sheila Mac gallbladder, is a gallbladder specimen (8.9 x 3.7x 2.1 cm) in which the cystic duct is enclosed with a white clip. The serosa is green-hathaway and smooth with a roughened hepatic surface. The specimen is opened to reveal green denuded mucosa, wall thickness of up to 0.1 cm, and 1 dark green stone (0.6 x 0.4 x 0.2 cm). No masses or lymph nodes are identified. Date Puller sections are submitted as follows: A1: Neck and cystic duct margin A2: Body and fundus Augusto Velasquez, Student Cduoor6308/28/2025 1:48 PM [facility] ([facility]) Microscopic DescriptionMicroscopic examination performed.08/28/2025 1:48 PM EST [facility] ([facility])Specimen (Source)Anatomical Location / Laterality Collection Method / VolumeCollection TimeReceived TimeTissueGallbladder structure / Vbdxnrm7008/24/2025 1:23 PM EST08/24/2025 3:09 PM ESTComment:Pre-op diagnosis: Calculus of gallbladder with cholecystitis without biliary obstruction, unspecified cholecystitis acuity [K80.10] Narrative Authorizing ProviderResult TypeResult StatusPatricio CUELLO PATHOLOGY ORDERABLESFinal ResultPerforming OrganizationAddressCity/State/ZIP CodePhone Number [facility] ([facility]) [address] [place] [address] * TX AN ELECTIVE ENDOTRACHEAL AIRWAY (08/24/2025 11:53 AM EST) Narrative Rickie Childress MD - 08/24/2025 11:53 AM EST Rickie Childress MD 08/24/2025 12:50 PM Airway Date/Time: 08/24/2025 11:53 AM Reason: elective Airway not difficult General Information and Staff Patient location during procedure: OR Anesthesiologist: Rickie Childress MD Resident/SLEEVE WHEEL MAKER/CAA: Annabel Alcaraz MD Performed: anesthesiologist and resident/SLEEVE WHEEL MAKER/CAA Patient Condition Indications for airway management: anesthesia Patient position: sniffing Planned trial extubation Sedation level: deep Final Airway Details Preoxygenated: yes Final airway type: endotracheal airway Successful airway: ETT Cuffed: yes Successful intubation technique: video laryngoscopy Adjuncts used in placement: intubating stylet Endotracheal tube insertion site: oral Blade: Acuna Blade size: #3 ETT size (mm): 7.0 Cormack-Lehane Classification: grade I - full view of glottis Placement verified by: chest auscultation and capnometry Measured from: lips ETT to lips (cm): 22 Number of attempts at approach: 1 Number of other approaches attempted: 0 Authorizing ProviderResult TypeResult StatusThomas Monroe MDANESTHESIA ORDERABLESFinal Result * (ABNORMAL) POCT glucose meter (08/24/2025 9:51 AM EST)ComponentValueRef Range Test MethodAnalysis TimePerformed AtPathologist SignatureGlucose POC69(L)70 - 105 mg/dL08/24/2025 10:07 AM [facility] ([facility])Comment:ngrotha Specimen (Source)Anatomical Location / LateralityCollection Method / Volume Collection TimeReceived TimeBloodCapillary blood specimen / Qbzpwva9108/24/2025 9:51 AM EST08/24/2025 10:07 AM EST Narrative [facility] ([facility]) - 08/24/2025 10:07 AM EST Waived Testing in the ED is performed under the ED CLIA certificate #[id number]. Authorizing ProviderResult TypeResult Alma CUELLO BLOOD ORDERABLES Final ResultPerforming OrganizationAddressCity/State/ZIP CodePhone Number [facility] ([facility]) [address] [place] [address] * ECG 12 lead unit performed (08/12/2025 3:04 PM EST)Specimen (Source)Anatomical Location / LateralityCollection Method / VolumeCollection TimeReceived Time Narrative Authorizing ProviderResult TypeResult Joel Soto [facility] ORDERABLES Final Result * CT transfer of outside films (08/05/2025 12:15 AM EST) Only the most recent of2 resultswithin the time period is included. Specimen (Source)Anatomical Location / LateralityCollection Method / Volume Collection TimeReceived Time Narrative IMAGING - 08/05/2025 12:02 PM EST This order has been auto-finalized and does not contain a result. Authorizing ProviderResult TypeResult StatusPatricio MEEKS CT PROCEDURES Final ResultPerforming OrganizationAddressCity/State/ZIP CodePhone Number IMAGING * US transfer of outside films (08/05/2025 12:05 AM EST) Only the most recent of2 resultswithin the time period is included. Specimen (Source)Anatomical Location / LateralityCollection Method / Volume Collection TimeReceived Time Narrative IMAGING - 08/05/2025 12:02 PM EST This order has been auto-finalized and does not contain a result. Authorizing ProviderResult TypeResult StatusPatricio MEEKS US PROCEDURES Final ResultPerforming OrganizationAddressCity/State/ZIP CodePhone Number IMAGING from Last 3 Months Insurance Advance Directives * Full Code (Latest Code Status on File) Date ActivatedDate OzktdlwiefzQjuenedb04/15/2025 9:33 AM08/24/2025 6:30 PM Care Teams Team MemberRelationshipSpecialtyStart DateEnd Date Alvaro Harp MD [address] [address] [facility]12/14/22
--- OUTSIDE RECORDS SUMMARY | 2025-09-08 09:08 | XMS_ITS | Patient Health Record ---
Author Organization [facility] in [place] Address [address] [place] [address] Care Team Providers Care Light Bulb Tester Name Role Phone Katiuska Diego Primary Care Provider [phone] Allergies Allergen (clinical drug ingredient) Drug/Non Drug Allergy documented on EMR Reaction Allergy Type Onset Date Status LevaquinUnknownDrug AllergyActivemeloxicamMobicUnknownDrug AllergyActive phenazopyridinePyridiumvomitingDrug AllergyActiveIodineUnknownDrug AllergyActive morphineMorphineUnknownDrug AllergyActivePenicillinUnknownDrug AllergyActive Results Component Value Reference Range Notes US renal bladder Reviewed date:05/19/2025 12:21:04 PM Interpretation: Performing Lab: Notes/Report: Source Facility: [place] [address] [place] [address] Ultrasound Report Signed Patient: SHEILA MAC MR#: [id number] : 1950 Acct:[id number] Age/Sex: 75 / F ADM Date: 05/19/25 Loc: US Attending Dr: Krzystzof Harp M.D. Ordering Physician: Krzysztof Harp M.D. Date of Service: 05/19/25 Procedure(s): US renal bladder Accession Number(s): [id number] cc: Krzysztof Harp M.D. [place] [id number] Patient Name: SHEILA MAC MRN: [id number] date: 1950 Sex: F Assigned Patient Location: US Current Patient Location: US Accession/Order Number: [id number] Exam Date: 05/19/2025 07:08 Report Date: 05/19/2025 11:04 At the request of: KRZYSZTOF HARP MD Procedure: US renal bladder BILATERAL RENAL AND BLADDER ULTRASOUND CLINICAL HISTORY: Urinary Tract Infection N39.0 COMPARISON: 04/29/2024 CT and 10/28/2023 ultrasound Estimation of renal size is approximately 7.4 cm on the right and 7.5 cm on the left. No shadowing calculi or hydronephrosis are identified. No renal mass lesions were imaged. There is no perinephric fluid. The urinary bladder is partially distended with a volume of 180 mL. No contour or intraluminal abnormalities are seen. The post void bladder volume is 3 mL. Bilateral ureteral jets are seen. US/US renal bladder IMPRESSION: NO OBSTRUCTIVE UROPATHY. Impression dictated by: Ling Fields M.D. 05/19/2025 11:04 AM Dictation Location: [place] [address] Electronically authenticated by: [id number] Y Date: 05/19/2025 11:04 Dictated By: Ling Fields M.D. Signed By: 05/19/25 1106 DD/ 1104 TD/TT: Supercalender Operator Helper: AMMONIA Reviewed date:07/29/2025 12:49:53 PM Interpretation: Performing Lab: Notes/Report: [facility] , Ammonia <10 11-32 umol/L Performing Lab:see noteML - [facility] LBPROF 14(COMP METB) Reviewed date:07/29/2025 12:49:53 PM Interpretation: Performing Lab: Notes/Report: [facility] ,Znouot693517-101 mmol/LPotassium5.03.5-5.1 mmol/RNtjympfi69166-957 mmol/LCarbon Torfdot02.121.0-32.0 mmol/LAnion Gap16.7Mucxhhs99490-246 mg/dLBlood Urea Kbditmct73.07.0-18.0 mg/dLCreatinine2.290.55-1.02 mg/dLEstimated GFR ( Qeyskdj01>=60 mL/min/1.73m 2Estimated GFR (Non- Ame21>=60 mL/min/1.73m 2 BUN Creatinine Ratio18.4Jtpzedr41.18.5-10.1 mg/dLBilirubin Total0.40.2-1.0 mg/dL Aspartate Amino Mjyrybiaooa4480-28 U/LAlanine Npvhsbhkvveylysx2843-00 U/L Alkaline Nzbnqqrtyyn99946-008 U/LTotal Protein8.16.4-8.2 g/dLAlbumin Level3.3 3.4-5.0 g/dLGlobulin4.8Albumin Globulin Ratio0.7Performing Lab:see noteML - [facility] LBPTT Reviewed date:07/29/2025 12:49:53 PM Interpretation: Performing Lab: Notes/Report: [facility] ,Partial Thromboplastin Time26.022.3-36.2 secPerforming Lab:see noteML - [facility] LBXR chest 2V Reviewed date:10/01/2024 02:59:17 PM Interpretation: Performing Lab: Notes/Report: Source Facility: [facility]-[address] [place] [address] XRay Report Signed Patient: SHEILA MAC MR#: [id number] : 1950 Acct:[id number] Age/Sex: 74 / F ADM Date: 10/01/24 Loc: LAB Attending Dr: Krzysztof Harp M.D. Ordering Physician: Krzysztof Harp M.D. Date of Service: 10/01/24 Procedure(s): XR chest 2V Accession Number(s): [id number] cc: Krzysztof Harp M.D. [place] [address] Patient Name: SHEILA MAC MRN: [id number]:[id number] date: 1950 Sex: F Assigned Patient Location: LAB Current Patient Location: LAB Accession/Order Number: [id number] Exam Date: 10/01/2024 09:40 Report Date: 10/01/2024 13:18 At the request of: KRZYSZTOF HARP Procedure: XR chest 2V EXAM: XR chest 2V HISTORY: Shortness Of Breath, Chronic Pancreatitis. COMPARISON: 06/21/2024. TECHNIQUE: 2 views. FINDINGS: No focal parenchymal infiltrates are seen. No effusions are noted. Tortuosity is noted of the descending thoracic aorta. XR/XR chest 2V IMPRESSION: No acute findings. Electronically authenticated by: Wendy ARREAGA Date: 10/01/2024 13:18 Dictated By: Wendy Arreaga M.D. Signed By: 10/01/24 1321 DD/ 1318 TD/TT: Supercalender Operator Helper:XR lumbar spine min 4V Reviewed date:10/01/2024 02:59:17 PM Interpretation: Performing Lab: Notes/Report: Source Facility: [place] [address] XRay Report Signed Patient: SHEILA MAC MR#: [id number] : 1950 Acct:[id number] Age/Sex: 74 / F ADM Date: 10/01/24 Loc: LAB Attending Dr: Krzysztof Harp M.D. Ordering Physician: Krzysztof Harp M.D. Date of Service: 10/01/24 Procedure(s): XR lumbar spine min 4V Accession Number(s): [id number] cc: Krzysztof Harp M.D. [place] [address] Patient Name: SHEILA MAC MRN: [id number]:[id number] date: 1950 Sex: F Assigned Patient Location: LAB Current Patient Location: LAB Accession/Order Number: [id number] Exam Date: 10/01/2024 09:40 Report Date: 10/01/2024 13:18 At the request of: KRZYSZTOF HARP Procedure: XR lumbar spine min 4V EXAM: XR lumbar spine min 4V HISTORY: Back Pain, Chronic Pancreatitis. COMPARISON: None. TECHNIQUE: 5 views. FINDINGS: There is a curvature of the lumbar spine with the convexity curve towards the left. Multilevel degenerative changes are seen most severe at L5-S1 and L1-L2. No anterior posterior subluxation is seen. Facet joint degenerative changes are also seen predominantly at the lower lumbar levels. If the patient has radiculopathy recommend MRI. XR/XR lumbar spine min 4V IMPRESSION: Degenerative changes as noted. Recommend MRI for further evaluation. Electronically authenticated by: Wendy ARREAGA Date: 10/01/2024 13:18 Dictated By: Wendy Arreaga M.D. Signed By: 10/01/24 1321 DD/ 1318 TD/TT: Supercalender Operator Helper:BNP Reviewed date:10/16/2024 06:41:43 PM Interpretation: Performing Lab: Notes/Report: [facility] ,NT Pro B Type Natriuretic Pkkz1997.0<=1800.0 pg/mLRESULTS CALLED TO DR HARP Performing Lab:see noteML - [facility] LBMAGNESIUM Reviewed date:10/16/2024 06:40:06 PM Interpretation: Performing Lab: Notes/Report: [facility] ,Magnesium1.51.8-2.4 mg/dLPerforming Lab:see noteML - [facility] LB Troponin I High Sensitivity Reviewed date:10/16/2024 06:40:06 PM Interpretation: Performing Lab: Notes/Report: [facility] ,Troponin I High Imsbwhvaqky42.54.0-51.3 pg/mL CUT-OFF POINTS HAVE BEEN ESTABLISHED BASED ON THE FOURTH UNIVERSAL DEFINITION OF MYOCARDIAL INFARCTION. THE UPPER REFERENCE LIMIT (URL) OF TROPONIN, DEFINED THE 99TH PERCENTILE OF cTnI DISTRIBUTION IN A REFERENCE POPULATION, HAS BEEN CONFIRMED THE DECISION THRESHOLD FOR [place] DIAGNOSIS. 99TH PERCENTILE = 51.4 PG/ML NOTE: HIGH-SENSITIVITY TROPONIN ASSAY IS NOT INTENDED TO BE USED IN ISOLATION BUT SHOULD BE INTERPRETED IN CONJUNCTION WITH OTHER DIAGNOSTIC AND CLINICAL INFORMATION. Performing Lab:see noteML - [facility] LBXR chest 1V Reviewed date:10/16/2024 06:40:06 PM Interpretation: Performing Lab: Notes/Report: Source Facility: [facility]-[address] [place] [address] [place] [address] XRay Report Signed Patient: SHEILA MAC MR#: [id number] : 1950 Acct:[id number] Age/Sex: 74 / F ADM Date: 10/16/24 Loc: ER Attending Dr: Ordering Physician: Bridget Naranjo D.O. Date of Service: 10/16/24 Procedure(s): XR chest 1V Accession Number(s): [id number] cc: Krzysztof Harp M.D.; Bridget Naranjo D.O. [place] [address] Patient Name: SHEILA MAC MRN: [id number]:[id number] date: 1950 Sex: F Assigned Patient Location: ED.MAIN Current Patient Location: ER Accession/Order Number: [id number] Exam Date: 10/16/2024 15:30 Report Date: 10/16/2024 15:57 At the request of: BRIDGET NARANJO Procedure: XR chest 1V EXAMINATION: XR chest 1V HISTORY: flu COMPARISON: 04/29/2024 TECHNIQUE: Portable FINDINGS: LUNGS: Mild focal infiltrate identified in the right upper lobe marginating the minor fissure. Left lung is clear VASCULATURE: No increased pulmonary vasculature. PLEURA: No pneumothorax, effusion, or pleural thickening. CARDIAC: No cardiomegaly or cardiac silhouette abnormality. MEDIASTINUM: No visible mass or adenopathy. BONES: No fracture or visible bone lesion. OTHER: Retrocardiac opacity, a hiatal hernia is favored XR/XR chest 1V IMPRESSION: Right upper lobe pneumonia Electronically authenticated by: GODWIN BECK Date: 10/16/2024 15:57 Dictated By: Godwin Beck M.D. Signed By: 10/16/24 1600 DD/ 1557 TD/TT: Supercalender Operator Helper:CBC AUTO DIFF Reviewed date:10/17/2024 08:53:14 AM Interpretation: Performing Lab: Notes/Report: [facility] ,White Blood Count5.14.0-11.0 10 3/uLRed Blood Count3.704.20-5.40 10 6/uL Hmqanqrshn43.112.0-16.0 g/fANnhsanfahm01.636.0-48.0 %Mean Corpuscular Cthluf98.2 81.0-99.0 fLMean Corpuscular Jbtjxqrceo47.026.7-34.0 pgMean Corpuscular HGB Conc 31.229.9-35.2 g/dLRed Cell Distribution Width13.311.0-15.0 %Platelet Vddhv395 150-450 10 3/uLMean Platelet Volume9.59.5-13.5 fLNeutrophils Percent Auto75.8 43.0-75.0 %Lymphocytes Percent Auto20.820.5-60.0 %Monocytes Percent Auto2.21.7- 12.0 %Eosinophils Percent Auto0.20.9-7.0 %Basophils Percent Auto0.20.2-2.0 % Immature Granulocytes Pct Auto0.80.0-0.5 %Neutrophils Absolute Auto3.81.4-6.5 10 3/uLLymphocytes Absolute Auto1.11.2-3.8 10 3/uLMonocytes Absolute Auto0.10.3-0.8 10 3/uLEosinophils Absolute Auto0.00.0-0.7 10 3/uLBasophils Absolute Auto0.00.0- 0.1 10 3/uLImmature Granulocytes Abs Auto0.040.00-0.03 10 3/uLPerforming Lab:see noteML - [facility] LBUA RANDOM W or MICROSCOPIC Reviewed date:10/17/2024 08:53:14 AM Interpretation: Performing Lab: Notes/Report: [facility] ,Color UrineLT. YELLOWYELLOWClarity UrineSL CLOUDYCLEARSpecific [place] Urine 1.0251.005-1.025pH Urine6.05.0-9.0Protein Wwtpe44PUJ/TRACE mg/dLGlucose Urine UA NEGATIVENEGATIVE mg/dLBilirubin UrineNEGATIVENEGATIVEKetones UrineTRACENEGATIVE mg/dLBlood UrineTRACE-INEGATIVENitrite UrineNEGATIVENEGATIVEUrobilinogen Urine 0.20.2-1.0 EU/dLLeukocyte Esterase UrineMODERATENEGATIVEWBC Iyfjj23-04HDCA SEEN #/HPFRBC Urine0-20-2 #/HPFBacteria UrineMODERATENONE SEEN #/HPFMucus UrineNONE SEENNONE SEENSquamous Epithelial Cell UrineMODERATENONE/RARE #/LPFCrystals Seen? None SeenNone Seen #/HPFCast Seen?SEENNONE SEEN #/LPFHyaline Casts UrineFEWFine Granular Casts UrineRAREUrine Culture IndicatedYESPerforming Lab:see noteML - [facility] LBCBC AUTO DIFF Reviewed date:10/19/2024 11:04:40 AM Interpretation: Performing Lab: Notes/Report: [facility] ,White Blood Count7.54.0-11.0 10 3/uLRed Blood Count3.354.20-5.40 10 6/uL Jltbcwplzc30.012.0-16.0 g/eXRygcjotqxz65.736.0-48.0 %Mean Corpuscular Rakjsz73.6 81.0-99.0 fLMean Corpuscular Tbsbkmqocp70.926.7-34.0 pgMean Corpuscular HGB Conc 31.529.9-35.2 g/dLRed Cell Distribution Width13.511.0-15.0 %Platelet Jqfar111 150-450 10 3/uLMean Platelet Volume9.99.5-13.5 fLNeutrophils Percent Auto75.5 43.0-75.0 %Lymphocytes Percent Auto15.020.5-60.0 %Monocytes Percent Auto8.81.7- 12.0 %Eosinophils Percent Auto0.00.9-7.0 %Basophils Percent Auto0.00.2-2.0 % Immature Granulocytes Pct Auto0.70.0-0.5 %Neutrophils Absolute Auto5.61.4-6.5 10 3/uLLymphocytes Absolute Auto1.11.2-3.8 10 3/uLMonocytes Absolute Auto0.70.3-0.8 10 3/uLEosinophils Absolute Auto0.00.0-0.7 10 3/uLBasophils Absolute Auto0.00.0- 0.1 10 3/uLImmature Granulocytes Abs Auto0.050.00-0.03 10 3/uLPerforming Lab:see noteML - [facility] LBPROF 14(COMP METB) Reviewed date:10/19/2024 11:04:40 AM Interpretation: Performing Lab: Notes/Report: [facility] ,Uqewvu106663-490 mmol/LPotassium4.03.5-5.1 mmol/IMuvrjxpw47185-124 mmol/LCarbon Bjychjh78.021.0-32.0 mmol/LAnion Gap18.4Gseasjw93014-293 mg/dLBlood Urea Kkdakgsg32.07.0-18.0 mg/dLCreatinine2.800.55-1.02 mg/dLEstimated GFR ( Awlrhga62>=60 mL/min/1.73m 2Estimated GFR (Non- Ame16>=60 mL/min/1.73m 2 BUN Creatinine Ratio19.6Rkqzymc7.88.5-10.1 mg/dLBilirubin Total0.20.2-1.0 mg/dL Aspartate Amino Nqvnzwmpqjp6283-34 U/LAlanine Rcdresgnhnjrseev9031-82 U/L Alkaline Weiapttzmwy0132-309 U/LTotal Protein6.26.4-8.2 g/dLAlbumin Level2.33.4- 5.0 g/dLGlobulin3.9Albumin Globulin Ratio0.6Performing Lab:see noteML - [facility] LBCT chest wo con Reviewed date:12/11/2024 05:12:13 PM Interpretation: Performing Lab: Notes/Report: Source Facility: [facility]-[address] [place] [address] [place] [address] CT Scan Report Signed Patient: SHEILA MAC MR#: [id number] : 1950 Acct:[id number] Age/Sex: 74 / F ADM Date: 12/11/24 Loc: MRI Attending Dr: Krzysztof Harp M.D. Ordering Physician: Krzysztof Harp M.D. Date of Service: 12/11/24 Procedure(s): CT chest wo con Accession Number(s): [id number] cc: Krzysztof Harp M.D. [place] [address] Patient Name: SHEILA MAC MRN: [facility]:[id number] date: 1950 Sex: F Assigned Patient Location: MRI Current Patient Location: MRI Accession/Order Number: [id number] Exam Date: 12/11/2024 11:57 Report Date: 12/11/2024 12:10 At the request of: KRZYSZTOF HARP MD Procedure: CT chest wo con CT CHEST WITHOUT CONTRAST COMPARISON: 07/30/2021 CLINICAL DATA: Persistent cough for several months. Spiral images were obtained through chest without contrast. Images were reviewed using both narrow and wide window settings. This CT exam was performed using one or more following dose reduction techniques: Automated exposure control, adjustment of the mA and/or kV according to patient size, or use of iterative reconstruction technique. The heart is within normal limits for size. No pericardial effusion is present. The ascending aorta is ectatic. There is atherosclerotic plaque at the aortic arch, descending aorta and proximal great vessels. There are small nonpathologic mediastinal lymph nodes. There are calcified right hilar granulomas. A tiny hiatal hernia is seen. Dextroscoliotic curvature and endplate spurring is present at the spine. Atelectasis and/or scarring is noted. There is continued peripheral septal thickening, greater at the lower lungs. Lower lobe bronchiectasis is also still seen. There is no new consolidation or pleural effusion. There are scattered tiny pulmonary nodules, are dominantly at the right upper lobe. No pneumothorax is identified. Limited cuts through the upper abdomen show calcified granulomas at the spleen. CT/CT chest wo con IMPRESSION: SIMILAR INTERSTITIAL LUNG DISEASE WITH BRONCHIECTASIS AND TINY STABLE PULMONARY NODULES Impression dictated by: Ling Fields M.D.12/11/2024 12:10 PM Dictation Location: [place] [address] Electronically authenticated by: [id number] Y Date: 12/11/2024 12:10 Dictated By: Ling Fields M.D. Signed By: 12/11/24 1213 DD/ 1210 TD/TT: Supercalender Operator Helper:MR lumbar spine wo con Reviewed date:12/11/2024 05:12:13 PM Interpretation: Performing Lab: Notes/Report: Source Facility: [facility]-[address] [place] [address] [place] [address] Magnetic Resonance Report Signed Patient: SHEILA MAC MR#: [id number] : 1950 Acct:[id number] Age/Sex: 74 / F ADM Date: 12/11/24 Loc: MRI Attending Dr: Krzysztof Harp M.D. Ordering Physician: Krzysztof Harp M.D. Date of Service: 12/11/24 Procedure(s): MR lumbar spine wo con Accession Number(s): [id number] cc: Krzysztof Harp M.D. [place] [address] Patient Name: SHEILA MAC MRN: [id number] date: 1950 Sex: F Assigned Patient Location: MRI Current Patient Location: MRI Accession/Order Number: [id number] Exam Date: 12/11/2024 11:40 Report Date: 12/11/2024 11:57 At the request of: KRZYSZTOF HARP MD Procedure: MR lumbar spine wo con MRI LUMBAR SPINE WITHOUT CONTRAST COMPARISON: Plain films 10/01/2024 CLINICAL DATA: Chronic low back pain with tingling and numbness at the lower extremities. No injury. Multiecho imaging in the axial and sagittal plane was performed without contrast. There is levoscoliotic curvature. Alignment is maintained on the sagittal sequences. There are no acute compression fractures or marrow edema. There are degenerative endplate signal changes, greatest at L2-3 toward the right and L4-5 toward the left. The conus medullaris is within normal limits for caliber, position and signal intensity. No paraspinal soft tissue abnormalities are noted. At T12-L1, there is mild annular disc bulging, asymmetric in the right parasagittal region. There is mild thecal sac effacement on the right. No significant foraminal encroachment is seen. At L1-2, there is narrowing of the disc space. There is annular disc bulging, which is also asymmetric in the right parasagittal region. Mild facet and ligamentous hypertrophy are seen. Mild thecal sac effacement is present, greater on the right. Moderate right and mild to moderate left foraminal encroachment is present. At L2-3, there is narrowing of the disc space. Annular disc bulging is visualized, asymmetric extending laterally on the right. There is also bilateral facet and ligamentous hypertrophy. Moderate central stenosis is visualized. There is moderate to severe right and mild left foraminal encroachment. At L3-4, the disc is within normal limits for height. There is minimal annular disc bulging. Mild facet and ligamentous hypertrophy are noted with mild to moderate posterior effacement of the thecal sac. There is minor right and moderate to severe left foraminal encroachment. At L4-5, there is narrowing of the disc space. Minor disco-osteophytic bulging is present, asymmetric extending laterally on the left. Bilateral facet hypertrophy is present. There is no prominent thecal sac effacement. Mild right and moderate to severe left foraminal encroachment is identified. At the lumbosacral junction, there is narrowing of the disc space. No disc bulge or herniation is seen. There is facet hypertrophy. No thecal sac effacement is identified. There is mild right and minimal left foraminal encroachment. MR/MR lumbar spine wo con IMPRESSION: LEVOSCOLIOSIS WITH MULTILEVEL DISCOVERTEBRAL DEGENERATIVE CHANGES AND ASSOCIATED STENOSIS, GREATEST AT L2-3. Impression dictated by: Ling Fields M.D.12/11/2024 11:57 AM Dictation Location: [place] [address] Electronically authenticated by: [id number] Y Date: 12/11/2024 11:57 Dictated By: Ling Fields M.D. Signed By: 12/11/24 1200 DD/ 1157 TD/TT: Supercalender Operator Helper:CBC AUTO DIFF Reviewed date:10/19/2024 11:04:40 AM Interpretation: Performing Lab: Notes/Report: [facility] ,White Blood Count6.74.0-11.0 10 3/uLRed Blood Count3.354.20-5.40 10 6/uL Byliaakxwv40.012.0-16.0 g/xCZundfvawhe74.036.0-48.0 %Mean Corpuscular Cvtnnm60.5 81.0-99.0 fLMean Corpuscular Tzxeklqadb29.926.7-34.0 pgMean Corpuscular HGB Conc 31.329.9-35.2 g/dLRed Cell Distribution Width13.711.0-15.0 %Platelet Reyqa964 150-450 10 3/uLMean Platelet Volume9.89.5-13.5 fLNeutrophils Percent Auto56.7 43.0-75.0 %Lymphocytes Percent Auto33.120.5-60.0 %Monocytes Percent Auto9.11.7- 12.0 %Eosinophils Percent Auto0.30.9-7.0 %Basophils Percent Auto0.10.2-2.0 % Immature Granulocytes Pct Auto0.70.0-0.5 %Neutrophils Absolute Auto3.81.4-6.5 10 3/uLLymphocytes Absolute Auto2.21.2-3.8 10 3/uLMonocytes Absolute Auto0.60.3-0.8 10 3/uLEosinophils Absolute Auto0.00.0-0.7 10 3/uLBasophils Absolute Auto0.00.0- 0.1 10 3/uLImmature Granulocytes Abs Auto0.050.00-0.03 10 3/uLPerforming Lab:see noteML - [facility] LBCBC AUTO DIFF Reviewed date:03/03/2025 02:40:58 PM Interpretation: Performing Lab: Notes/Report: [facility] ,White Blood Count9.64.0-11.0 10 3/uLRed Blood Count3.964.20-5.40 10 6/uL Invniolmld63.212.0-16.0 g/dSWejudqyjva84.236.0-48.0 %Mean Corpuscular Wjzejv12.9 81.0-99.0 fLMean Corpuscular Hmzjlyzavm06.826.7-34.0 pgMean Corpuscular HGB Conc 32.829.9-35.2 g/dLRed Cell Distribution Width13.311.0-15.0 %Platelet Phgfd224 150-450 10 3/uLMean Platelet Volume9.39.5-13.5 fLNeutrophils Percent Auto44.2 43.0-75.0 %Lymphocytes Percent Auto34.120.5-60.0 %Monocytes Percent Auto9.81.7- 12.0 %Eosinophils Percent Auto10.80.9-7.0 %Basophils Percent Auto0.90.2-2.0 % Immature Granulocytes Pct Auto0.20.0-0.5 %Neutrophils Absolute Auto4.31.4-6.5 10 3/uLLymphocytes Absolute Auto3.31.2-3.8 10 3/uLMonocytes Absolute Auto0.90.3-0.8 10 3/uLEosinophils Absolute Auto1.00.0-0.7 10 3/uLBasophils Absolute Auto0.10.0- 0.1 10 3/uLImmature Granulocytes Abs Auto0.020.00-0.03 10 3/uLPerforming Lab:see noteML - [facility] LBXR chest 1V Reviewed date:10/17/2024 09:16:48 AM Interpretation: Performing Lab: Notes/Report: Source Facility: [place] [address] XRay Report Signed Patient: SHEILA MAC MR#: [id number] : 1950 Acct:[id number] Age/Sex: 74 / F ADM Date: 10/16/24 Loc: [place] 211-[address]: Krzysztof Harp M.D. Ordering Physician: Krzysztof Harp M.D. Date of Service: 10/17/24 Procedure(s): XR chest 1V Accession Number(s): [id number] cc: Krzysztof Harp M.D. [place] [id number] Patient Name: SHEILA MAC MRN: [facility]:[id number] date: 1950 Sex: F Assigned Patient Location: MS Current Patient Location: MS Accession/Order Number: [id number] Exam Date: 10/17/2024 08:00 Report Date: 10/17/2024 08:48 At the request of: KRZYSZTOF HARP Procedure: XR chest 1V EXAM: XR chest 1V HISTORY: follow up pneumonia, now hypoxic COMPARISON: 10/16/2024 TECHNIQUE: AP portable FINDINGS: LUNGS: Slight improvement in minimal right upper lobe infiltrate. Mild left basilar infiltrate VASCULATURE: No increased pulmonary vasculature. PLEURA: No pneumothorax, effusion, or pleural thickening. CARDIAC: No cardiomegaly or cardiac silhouette abnormality. MEDIASTINUM: No visible mass or adenopathy. BONES: No fracture or visible bone lesion. OTHER: Negative. XR/XR chest 1V IMPRESSION: Slight improvement in right upper lobe infiltrate. New left basilar infiltrate Electronically authenticated by: GODWIN BECK Date: 10/17/2024 08:48 Dictated By: Godwin Beck M.D. Signed By: 10/17/2450 DD/ TD/TT: Supercalender Operator Helper:GLYCOHEMOGLOBIN A1C Reviewed date:03/03/2025 02:40:58 PM Interpretation: Performing Lab: Notes/Report: [facility] ,Glycohemoglobin A1C6.44.5-6.2 % ADA RECOMMENDED LIMIT 4.0 - 6.0 ADA THERAPEUTIC TARGET < 7.0 ACTION SUGGESTED > 7.0 Estimated Average Tdvvplx916Pjnkkkrjoo Lab:see noteML - [facility] LB Urine Culture, Routine Reviewed date:10/19/2024 11:04:40 AM Interpretation: Performing Lab: Notes/Report: [facility] ,Urine Culture, RoutineSee Below For Report Urine Culture, Routine Urine Culture, RoutineMixed urogenital diana Urine Culture, Routine Urine Culture, Xhcwztx89,000-100,000 colony forming units per mL Urine Culture, Routine Urine Culture, RoutinePerformed at: - [facility] [place] Urine Culture, Routine Urine Culture, [id number] [place], [place] [id number] Urine Culture, Routine Urine Culture, RoutineLab Director: Tutu Casas PhD, Phone: [phone] Urine Culture, Routine Performing Lab:see note LC - [facility] LB SEE REPORT - Molder Id information not found for OBX-specific creative producer legend C. Difficile PCR Reviewed date:10/19/2024 11:04:40 AM Interpretation: Performing Lab: Notes/Report: [facility] ,C. Difficile PCRNEGATIVEPerforming Lab:see noteML - [facility] LB PROF 14(COMP METB) Reviewed date:03/03/2025 02:40:58 PM Interpretation: Performing Lab: Notes/Report: [facility] [facility] ,Ttkdyf545941-195 mmol/LPotassium4.23.5-5.1 mmol/XSybughvh33569-846 mmol/LCarbon Usisttv67.621.0-32.0 mmol/LAnion Gap14.7Xuflcfc5527-663 mg/dLBlood Urea Nitrogen 32.07.0-18.0 mg/dLCreatinine2.120.55-1.02 mg/dLEstimated GFR ( Buetuxq70 >=60 mL/min/1.73m 2Estimated GFR (Non- Ame23>=60 mL/min/1.73m 2BUN Creatinine Ratio15.0Ituxyxh1.38.5-10.1 mg/dLBilirubin Total0.50.2-1.0 mg/dL Aspartate Amino Pmgvcivzfjt3587-24 U/LAlanine Voeavsmdjwsbmzav0157-93 U/L Alkaline Uzfpfazjsza47737-890 U/LTotal Protein7.86.4-8.2 g/dLAlbumin Level3.0 3.4-5.0 g/dLGlobulin4.8Albumin Globulin Ratio0.6Performing Lab:see noteML - [facility] LBPROTEIN RAND URINE Reviewed date:03/03/2025 02:40:58 PM Interpretation: Performing Lab: Notes/Report: [facility] ,Total Protein Urine Xaigll50.4<=11.9 mg/dLPerforming Lab:see noteML - [facility] LBT4 Reviewed date:03/03/2025 02:40:58 PM Interpretation: Performing Lab: Notes/Report: [facility] ,T4 Thyroxine6.604.80-13.90 ug/dLPerforming Lab:see noteML - [facility] LBTSH Reviewed date:03/03/2025 02:40:58 PM Interpretation: Performing Lab: Notes/Report: [facility] ,Thyroid Stimulating Hormone2.1800.358-3.740 uIU/mLPerforming Lab:see note - [facility] LBPROF 14(COMP METB) Reviewed date:10/17/2024 08:53:14 AM Interpretation: Performing Lab: Notes/Report: [facility] ,Lhzjog892833-631 mmol/LPotassium4.43.5-5.1 mmol/BUfocofag03735-403 mmol/LCarbon Vhnqoni15.221.0-32.0 mmol/LAnion Gap18.8Ahvxjdk97372-998 mg/dLBlood Urea Grcpcnbu50.07.0-18.0 mg/dLCreatinine2.670.55-1.02 mg/dLEstimated GFR ( Upkpzxw53>=60 mL/min/1.73m 2Estimated GFR (Non- Ame17>=60 mL/min/1.73m 2 BUN Creatinine Ratio16.1Hbneeut9.38.5-10.1 mg/dLBilirubin Total0.20.2-1.0 mg/dL Aspartate Amino Pxygnkqdcdw1089-42 U/LAlanine Sujnqzgwdoffdydl8739-10 U/L Alkaline Ngjblgcsnxh47915-655 U/LTotal Protein6.96.4-8.2 g/dLAlbumin Level2.3 3.4-5.0 g/dLGlobulin4.6Albumin Globulin Ratio0.5Performing Lab:see noteML - [facility] LBUA RANDOM W or MICROSCOPIC Reviewed date:05/13/2025 01:10:17 PM Interpretation: Performing Lab: Notes/Report: [facility] ,Color UrineLT. YELLOWYELLOWClarity UrineCLEARCLEARSpecific [place] Urine1.015 1.005-1.025pH Urine6.05.0-9.0Protein UrineNEGATIVENEG/TRACE mg/dLGlucose Urine UANEGATIVENEGATIVE mg/dLBilirubin UrineNEGATIVENEGATIVEKetones UrineNEGATIVE NEGATIVE mg/dLBlood UrineTRACE-INEGATIVENitrite UrineNEGATIVENEGATIVE Urobilinogen Urine0.20.2-1.0 EU/dLLeukocyte Esterase UrineMODERATENEGATIVEWBC Urine5-10NONE SEEN #/HPFRBC Urine2-50-2 #/HPFBacteria UrineSMALLNONE SEEN #/HPF Mucus UrineNONE SEENNONE SEENSquamous Epithelial Cell UrineFEWNONE/RARE #/LPF Transitional Epi Cells UrineRARENONE SEEN #/LPFCrystals Seen?None SeenNone Seen #/HPFCast Seen?NONE SEENNONE SEEN #/LPFUrine Culture IndicatedALREADY ORDERED Performing Lab:see noteML - [facility] LBLACTATE or LACTIC ACID Reviewed date:10/17/2024 08:53:14 AM Interpretation: Performing Lab: Notes/Report: [facility] ,Lactate/Lactic Acid1.00.4-2.0 mmol/LPerforming Lab:see note - [facility] LBBlood Culture 2 Reviewed date:10/22/2024 09:20:26 PM Interpretation: Performing Lab: Notes/Report: RIGHT UPPER ARM [facility] ,Blood Culture 2See Below For Report Blood Culture 2 NG5D NO GROWTH AT 5 DAYS.^NO GROWTH AT 5 DAYS. Performing Lab:see note - [facility] LBBlood Culture 1 Reviewed date:10/22/2024 09:20:26 PM Interpretation: Performing Lab: Notes/Report: LEFT UPPER ARM [facility] ,Blood Culture 1See Below For Report Blood Culture 1 NG5D NO GROWTH AT 5 DAYS.^NO GROWTH AT 5 DAYS. [facility] LBPROF 14(COMP METB) Reviewed date:10/16/2024 06:40:06 PM Interpretation: Performing Lab: Notes/Report: [facility] ,Cvegbd978505-762 mmol/LPotassium4.83.5-5.1 mmol/OHpsqfkdp64897-634 mmol/LCarbon Edvufkx07.221.0-32.0 mmol/LAnion Gap21.1Axpnfbq90533-863 mg/dLBlood Urea Wvgfhxoy04.07.0-18.0 mg/dLCreatinine2.730.55-1.02 mg/dLEstimated GFR ( Ahrgxjm81>=60 mL/min/1.73m 2Estimated GFR (Non- Ame17>=60 mL/min/1.73m 2 BUN Creatinine Ratio12.4Sjgntpk2.38.5-10.1 mg/dLBilirubin Total0.50.2-1.0 mg/dL Aspartate Amino Kfchkymlegx0767-25 U/LAlanine Csyqqybuzawmpupa0816-69 U/L Alkaline Xibmcyllaqz49640-490 U/LTotal Protein8.16.4-8.2 g/dLAlbumin Level2.9 3.4-5.0 g/dLGlobulin5.2Albumin Globulin Ratio0.6Performing Lab:see note - [facility] LBLACTATE or LACTIC ACID Reviewed date:10/16/2024 06:40:06 PM Interpretation: Performing Lab: Notes/Report: [facility] ,Lactate/Lactic Acid2.40.4-2.0 mmol/LRESULTS CALLED TO DR NARANJO IN ERPerforming Lab:see noteML - [facility] LBCBC AUTO DIFF Reviewed date:10/16/2024 06:40:06 PM Interpretation: Performing Lab: Notes/Report: [facility] ,White Blood Count9.84.0-11.0 10 3/uLRed Blood Count4.294.20-5.40 10 6/uL Kcgcuorqpw55.912.0-16.0 g/lICodvxopnko50.436.0-48.0 %Mean Corpuscular Nxqjiu35.2 81.0-99.0 fLMean Corpuscular Rsutggbskk90.126.7-34.0 pgMean Corpuscular HGB Conc 31.929.9-35.2 g/dLRed Cell Distribution Width13.411.0-15.0 %Platelet Cklqe898 150-450 10 3/uLMean Platelet Volume9.49.5-13.5 fLNeutrophils Percent Auto75.1 43.0-75.0 %Lymphocytes Percent Auto13.720.5-60.0 %Monocytes Percent Auto8.71.7- 12.0 %Eosinophils Percent Auto0.90.9-7.0 %Basophils Percent Auto0.50.2-2.0 % Immature Granulocytes Pct Auto1.10.0-0.5 %Neutrophils Absolute Auto7.41.4-6.5 10 3/uLLymphocytes Absolute Auto1.31.2-3.8 10 3/uLMonocytes Absolute Auto0.90.3- 0.8 10 3/uLEosinophils Absolute Auto0.10.0-0.7 10 3/uLBasophils Absolute Auto0.1 0.0-0.1 10 3/uLImmature Granulocytes Abs Auto0.110.00-0.03 10 3/uLPerforming Lab:see noteML - [facility] LBXR HAND RT MIN 3V Reviewed date:10/11/2024 04:02:22 PM Interpretation: Performing Lab: Notes/Report: Source Facility: [place] [address] [address] XRay Report Signed Patient: SHEILA MAC MR#: [id number] : 1950 Acct:[id number] Age/Sex: 74 / F ADM Date: 10/09/24 Loc: RAD Attending Dr: Krzysztof Harp M.D. Ordering Physician: Krzysztof Harp M.D. Date of Service: 10/09/24 Procedure(s): XR hand RT min 3V Accession Number(s): [id number] cc: Krzysztof Harp M.D. The [place] [address] Patient Name: SHEILA MAC MRN: [id number] date: 1950 Sex: F Assigned Patient Location: [facility] Current Patient Location: Accession/Order Number: [id number] Exam Date: 10/09/2024 11:58 Report Date: 10/10/2024 07:03 At the request of: KRZYSZTOF HARP Procedure: XR hand RT min 3V PROCEDURE: XR wrist RT min 3V, XR hand RT min 3V HISTORY: Acute Right Wrist Pain COMPARISON: None. FINDINGS: BONES:8 mm rounded calcification suspected to be within the anterior medial aspect of the wrist joint proximally between the ulna and hamate bones. Multifocal mild degenerative joint disease. No fracture or dislocation. SOFT TISSUES:No visible soft tissue swelling. EFFUSION:None visible. OTHER: Negative. XR/XR hand RT min 3V IMPRESSION: 1. Calcified loose bodies suspected to be within the proximal anterior medial aspect of the wrist joint. 2. Multifocal mild degenerative joint disease. Electronically authenticated by: VISHNU MARIE Date: 10/10/2024 07:03 Dictated By: Vishnu Marie M.D. Signed By: 10/10/24704 DD/ 2 TD/TT: Supercalender Operator Helper:ELEAZAR AUTO DIFF Reviewed date:08/13/2025 04:03:45 PM Interpretation: Performing Lab: Notes/Report: [facility] ,White Blood Count12.04.0-11.0 10 3/uLRed Blood Count3.874.20-5.40 10 6/uL Wuiymogobn69.312.0-16.0 g/nEQgwaaxfkqi48.636.0-48.0 %Mean Corpuscular Volume 102.381.0-99.0 fLMean Corpuscular Tkoswuiico20.826.7-34.0 pgMean Corpuscular HGB Conc31.129.9-35.2 g/dLRed Cell Distribution Width13.311.0-15.0 %Platelet Count 251021-226 10 3/uLMean Platelet Volume9.99.5-13.5 fLNeutrophils Percent Auto65.0 43.0-75.0 %Lymphocytes Percent Auto21.420.5-60.0 %Monocytes Percent Auto8.91.7- 12.0 %Eosinophils Percent Auto3.80.9-7.0 %Basophils Percent Auto0.60.2-2.0 % Immature Granulocytes Pct Auto0.30.0-0.5 %Neutrophils Absolute Auto7.81.4-6.5 10 3/uLLymphocytes Absolute Auto2.61.2-3.8 10 3/uLMonocytes Absolute Auto1.10.3-0.8 10 3/uLEosinophils Absolute Auto0.50.0-0.7 10 3/uLBasophils Absolute Auto0.10.0- 0.1 10 3/uLImmature Granulocytes Abs Auto0.040.00-0.03 10 3/uLPerforming Lab:see noteML - [facility] LBPROF 14(COMP METB) Reviewed date:08/13/2025 04:03:45 PM Interpretation: Performing Lab: Notes/Report: [facility] ,Lhlcsd201203-044 mmol/LPotassium4.63.5-5.1 mmol/CEihwuftu92785-233 mmol/LCarbon Epunofe79.921.0-32.0 mmol/LAnion Gap14.4Pfvssyc2650-303 mg/dLBlood Urea Nitrogen 33.07.0-18.0 mg/dLCreatinine2.410.55-1.02 mg/dLEstimated GFR ( Dfvakab05 >=60 mL/min/1.73m 2Estimated GFR (Non- Ame19>=60 mL/min/1.73m 2BUN Creatinine Ratio13.3Ikpqxhp1.28.5-10.1 mg/dLBilirubin Total0.30.2-1.0 mg/dL Aspartate Amino Ozyodxpybmx7842-86 U/LAlanine Ndxqkmklyibpkodn9297-28 U/L Alkaline Mvgwxyqpiwj47177-821 U/LTotal Protein7.56.4-8.2 g/dLAlbumin Level3.1 3.4-5.0 g/dLGlobulin4.4Albumin Globulin Ratio0.7Performing Lab:see noteML - [facility] LBProthrombin Time INR Reviewed date:08/13/2025 04:03:45 PM Interpretation: Performing Lab: Notes/Report: [facility] ,Prothrombin Time10.89.0-11.6 secINR1.03 DESIRED INR: 2.0-3.0 CONDITIONS NOT LISTED BELOW 2.5-3.5 FOR PROSTHETIC HEART VALVE REPLACEMENT 2.5-3.5 RECURRENT THROMBOSIS Performing Lab:see noteML - [facility] LBCBC AUTO DIFF Reviewed date:07/29/2025 12:49:53 PM Interpretation: Performing Lab: Notes/Report: [facility] ,White Blood Count11.84.0-11.0 10 3/uLRed Blood Count3.784.20-5.40 10 6/uL Etzdezfmkc98.912.0-16.0 g/nASkarqnyeht26.136.0-48.0 %Mean Corpuscular Arhzwm78.1 81.0-99.0 fLMean Corpuscular Iaynsbimds38.526.7-34.0 pgMean Corpuscular HGB Conc 32.129.9-35.2 g/dLRed Cell Distribution Width12.511.0-15.0 %Platelet Gryuo609 150-450 10 3/uLMean Platelet Volume9.89.5-13.5 fLNeutrophils Percent Auto79.5 43.0-75.0 %Lymphocytes Percent Auto14.720.5-60.0 %Monocytes Percent Auto5.41.7- 12.0 %Eosinophils Percent Auto0.00.9-7.0 %Basophils Percent Auto0.10.2-2.0 % Immature Granulocytes Pct Auto0.30.0-0.5 %Neutrophils Absolute Auto9.41.4-6.5 10 3/uLLymphocytes Absolute Auto1.71.2-3.8 10 3/uLMonocytes Absolute Auto0.60.3-0.8 10 3/uLEosinophils Absolute Auto0.00.0-0.7 10 3/uLBasophils Absolute Auto0.00.0- 0.1 10 3/uLImmature Granulocytes Abs Auto0.040.00-0.03 10 3/uLPerforming Lab:see noteML - [facility] LBUA DIP NONAUTO WO MICRO (37802) - IN OFFICE Reviewed date:07/14/2025 01:48:07 PM Interpretation: Performing Lab: Notes/Report: COLORlight gxrvueDCPLLAMzeqtzmNFHSEJCfMBYFHSLTXvRWOCPG0HUWFZEDL GRAVITY1.010 BLOOD+++TP4EWPNVMS26RGGPYMRWEJMSfJCURCTLgOVOWVGQSM ESTERASE+++UA DIP NONAUTO WO MICRO (64364) - IN OFFICE Reviewed date:05/13/2025 01:10:17 PM Interpretation: Performing Lab: Notes/Report: COLORyellowCLARITYcloudyGLUCOSEnegBILIRUBINnegKETONEnegSPECIFIC GRAVITY1.020 BLOOD++JP4BQBUPFO+UROBILINOGENnegNITRITEpositiveLEUKOCYTE ESTERASE+++COVID-19, Flu A+B IH Reviewed date:10/19/2024 11:04:40 AM Interpretation: Performing Lab: Notes/Report: COVIDnegFLU ApositiveFLU BnegControlpresentGLUCOSE - IN OFFICE Reviewed date:10/19/2024 11:04:40 AM Interpretation: Performing Lab: Notes/Report: Xplelmw35290 - 106 MG/DLXR wrist RT min 3V Reviewed date:10/11/2024 04:02:22 PM Interpretation: Performing Lab: Notes/Report: Source Facility: [facility]-[address] [place] [address] [place] [address] XRay Report Signed Patient: SHEILA MAC MR#: [id number] : 1950 Acct:[id number] Age/Sex: 74 / F ADM Date: 10/09/24 Loc: [facility] Attending Dr: Krzysztof Harp M.D. Ordering Physician: Krzysztof Harp M.D. Date of Service: 10/09/24 Procedure(s): XR wrist RT min 3V Accession Number(s): [id number] cc: Krzysztof Harp M.D. [place] [address] Patient Name: SHEILA MAC MRN: [id number] date: 1950 Sex: F Assigned Patient Location: [facility] Current Patient Location: Accession/Order Number: [id number] Exam Date: 10/09/2024 11:58 Report Date: 10/10/2024 07:03 At the request of: KRZYSZTOF HARP Procedure: XR wrist RT min 3V PROCEDURE: XR wrist RT min 3V, XR hand RT min 3V HISTORY: Acute Right Wrist Pain COMPARISON: None. FINDINGS: BONES:8 mm rounded calcification suspected to be within the anterior medial aspect of the wrist joint proximally between the ulna and hamate bones. Multifocal mild degenerative joint disease. No fracture or dislocation. SOFT TISSUES:No visible soft tissue swelling. EFFUSION:None visible. OTHER: Negative. XR/XR wrist RT min 3V IMPRESSION: 1. Calcified loose bodies suspected to be within the proximal anterior medial aspect of the wrist joint. 2. Multifocal mild degenerative joint disease. Electronically authenticated by: VISHNU MARIE Date: 10/10/2024 07:03 Dictated By: Vishnu Marie M.D. Signed By: 10/10/24705 DD/ 2 TD/TT: Supercalender Operator Helper:SONIA RUTLEDGE ([id number]) - IN OFFICE Reviewed date:10/19/2024 11:04:40 AM Interpretation: Performing Lab: Notes/Report: COLORyellowCLARITYcloudyGLUCOSEnegBILIRUBINnegKETONEsmallSPECIFIC GRAVITY1.020 FCFVA669++DZ6HCUCRWC424++UROBILINOGENnegNITRITEnegLEUKOCYTE ESTERASE+++PROF 14(COMP METB) Reviewed date:10/01/2024 02:59:17 PM Interpretation: Performing Lab: Notes/Report: [facility] ,Hfbede420605-697 mmol/LPotassium4.53.5-5.1 mmol/ULwnyrlem48236-857 mmol/LCarbon Ajrlecg87.921.0-32.0 mmol/LAnion Gap12.4Nvrwcye69581-396 mg/dLBlood Urea Snpojssy95.07.0-18.0 mg/dLCreatinine2.530.55-1.02 mg/dLEstimated GFR ( Jpumssu06>=60 mL/min/1.73m 2Estimated GFR (Non- Ame18>=60 mL/min/1.73m 2 BUN Creatinine Ratio13.7Aumekyf6.28.5-10.1 mg/dLBilirubin Total0.30.2-1.0 mg/dL Aspartate Amino Ghzbzryapta5332-30 U/LAlanine Uhcjeeruimmomumm8404-80 U/L Alkaline Slqxrzfadjg96340-874 U/LTotal Protein7.46.4-8.2 g/dLAlbumin Level2.8 3.4-5.0 g/dLGlobulin4.6Albumin Globulin Ratio0.6Performing Lab:see noteML - [facility] LBCBC AUTO DIFF Reviewed date:10/01/2024 02:59:17 PM Interpretation: Performing Lab: Notes/Report: [facility] ,White Blood Count10.04.0-11.0 10 3/uLRed Blood Count3.894.20-5.40 10 6/uL Kfccdgqaht41.912.0-16.0 g/tLAzitywkujz54.836.0-48.0 %Mean Corpuscular Ybhvew30.2 81.0-99.0 fLMean Corpuscular Dbqfcuefwd36.626.7-34.0 pgMean Corpuscular HGB Conc 31.529.9-35.2 g/dLRed Cell Distribution Width13.611.0-15.0 %Platelet Cixae731 150-450 10 3/uLMean Platelet Volume9.89.5-13.5 fLNeutrophils Percent Auto58.4 43.0-75.0 %Lymphocytes Percent Auto17.720.5-60.0 %Monocytes Percent Auto11.01.7- 12.0 %Eosinophils Percent Auto10.50.9-7.0 %Basophils Percent Auto1.20.2-2.0 % Immature Granulocytes Pct Auto1.20.0-0.5 %Neutrophils Absolute Auto5.91.4-6.5 10 3/uLLymphocytes Absolute Auto1.81.2-3.8 10 3/uLMonocytes Absolute Auto1.10.3-0.8 10 3/uLEosinophils Absolute Auto1.10.0-0.7 10 3/uLBasophils Absolute Auto0.10.0- 0.1 10 3/uLImmature Granulocytes Abs Auto0.120.00-0.03 10 3/uLPerforming Lab:see note - [facility] LBBNP Reviewed date:10/01/2024 02:59:17 PM Interpretation: Performing Lab: Notes/Report: [facility] ,NT Pro B Type Natriuretic Bwzc8397.0<=1800.0 pg/mL RESULTS CALLED TO Maria C Miranda lpn @BY Keshia Vanegas at 1106 Performing Lab:see note - [facility] LBRT pulmonary function test Reviewed date:12/31/2024 07:12:33 PM Interpretation: Performing Lab: Notes/Report: Source Facility: [place] [address] Respiratory Report Signed Patient: SHEILA MAC MR#: [id number] : 1950 Acct:[id number] Age/Sex: 74 / F ADM Date: 12/31/24 Loc: CARD Attending Dr: Krzysztof Harp M.D. Ordering Physician: Krzysztof Harp M.D. Date of Service: 12/31/24 Procedure(s): RT pulmonary function test Accession Number(s): [id number] cc: [facility] Test Date: 2024-12-31 Pat Name: SHEILA MAC Department: Room: - Gender: Female Engineering Aide: Dayana Wade RRT : 1950 Requested By: KRZYSZTOF HARP Order Number: [id number] Andrae MD: Tee Walker Interpretive Statements Pulmonary function testing was completed according to ATS criteria. Findings were considered accurate and reproducible, with exception of DLCO which did not meet ATS standards. Patient claims allergy to albuterol; alternative ipratropium was offered, but patient refused this option. Spirometry: -FEV1/FVC: Low normal @ 70% -FEV1: Normal @ 84% -FVC: Normal @ 89% Lung volumes by plethysmography: -RV: Increased @ 131% -TLC: Normal @ 101% Diffusion capacity: -Patient was unable to perform the maneuvers despite repeated coaching Impressions: -Spirometry trends towards mild obstruction. Increased RV may indicate possible air trapping. Overall testing suggests mild obstructive pulmonary disease such as asthma, COPD, or bronchiectasis. Unable to distinguish further as patient refused alternative ipratropium for bronchodilator, and she was unable to complete diffusion testing. Clinical correlation required. Electronically Signed On 12-31-2024 11:41:35 EDT by Tee Walker Dictated By: Tee Walker D.O. Signed By: 12/31/24 1141 DD/ 0727 TD/TT: Supercalender Operator Helper:HEMOGLOBIN Reviewed date:12/31/2024 10:15:12 AM Interpretation: Performing Lab: Notes/Report: [facility] ,Wpeqqcbemj77.812.0-16.0 g/dLPerforming Lab:see noteML - [facility] LBPROF 14(COMP METB) Reviewed date:10/19/2024 11:04:40 AM Interpretation: Performing Lab: Notes/Report: [facility] ,Xpkhdf261552-085 mmol/LPotassium4.43.5-5.1 mmol/FKkgxutvj65047-035 mmol/LCarbon Bzvkxel55.221.0-32.0 mmol/LAnion Gap15.4Cwmxtok3805-966 mg/dLBlood Urea Nitrogen 40.07.0-18.0 mg/dLCreatinine2.290.55-1.02 mg/dLEstimated GFR ( Bouynog80 >=60 mL/min/1.73m 2Estimated GFR (Non- Ame21>=60 mL/min/1.73m 2BUN Creatinine Ratio17.6Aufvpfy1.98.5-10.1 mg/dLBilirubin Total0.20.2-1.0 mg/dL Aspartate Amino Vuzndnjbsxr0299-10 U/LAlanine Bpwqsuqzvqpnqoli5511-30 U/L Alkaline Etvqkjfszem0209-946 U/LTotal Protein6.06.4-8.2 g/dLAlbumin Level2.23.4- 5.0 g/dLGlobulin3.8Albumin Globulin Ratio0.6Performing Lab:see noteML - [facility] LBMAGNESIUM Reviewed date:10/19/2024 11:04:40 AM Interpretation: Performing Lab: Notes/Report: [facility] ,Magnesium1.31.8-2.4 mg/dLPerforming Lab:see noteML - [facility] LB FREE T3 Reviewed date:03/03/2025 02:40:58 PM Interpretation: Performing Lab: Notes/Report: [facility] ,Free T32.132.18-3.98 pg/mLPerforming Lab:see note - [facility] LB BNP Reviewed date:10/19/2024 11:04:40 AM Interpretation: Performing Lab: Notes/Report: [facility] ,NT Pro B Type Natriuretic Zlmf2596.0<=1800.0 pg/mLRESULTS CALLED TO ANUJ Morganerforming Lab:see note - [facility] LBIRON Reviewed date:03/03/2025 02:40:58 PM Interpretation: Performing Lab: Notes/Report: [facility] ,Iron62.050.0-170.0 ug/dLPerforming Lab:see note - [facility] LB LIPID PROFILE Reviewed date:03/03/2025 02:40:58 PM Interpretation: Performing Lab: Notes/Report: [facility] ,Rfpjhoahdtlib638<=150 mg/mUHgzkozdwwip779<=200 mg/dLHDL Ienudxiylnr1883-09 mg/dL > or =60 mg/dl - LOW CARDIOVASCULAR RISK <40 mg/dl - HIGH CARDIOVASCULAR RISK LDL Cholesterol Etxbfrkunc146.0 <100 mg/dl OPTIMAL 100-129 mg/dl NEAR OR ABOVE OPTIMAL 130-159 mg/dl BORDERLINE HIGH 160-189 mg/dl HIGH >190 mg/dl VERY HIGH VLDL VRJKGELIJQZ79.2Chol HDL Ratio3.4 3.3 - 4.4 LOW RISK 4.4 - 7.1 AVERAGE RISK 7.1 - 11.0 MODERATE RISK >11.0 HIGH RISK Performing Lab:see noteML - [facility] LBVITAMIN D 25 [place] Reviewed date:03/03/2025 02:40:58 PM Interpretation: Performing Lab: Notes/Report: [facility] ,Vitamin D23.5 <20 ng/mL Vit D deficient 20-<30 ng/mL Vit D insufficient 30-100 ng/mL Vit D sufficient >100 ng/mL Potential Toxicity Performing Lab:see noteML - [facility] LBUrine Culture - [facility] Reviewed date:05/15/2025 12:52:30 PM Interpretation: Performing Lab: Notes/Report: [facility] ,Urine Culture - [facility]MCSee Below For Report Urine Culture - [facility] Testing performed at [facility] O:ESCCOL Isolated Urine Culture - [facility] Organism Comments Organism: 1.1 Antibiotic Interpretation RAIZA Status Urine Culture - [id number] [place] [address] Urine Culture - [facility] Testing performed at [facility] O:ESCCOL Isolated Urine Culture - [facility] Organism Comments Organism: 1.1 Antibiotic Interpretation RAIZA Status Urine Culture - [facility]See Below For Report Urine Culture [facility] Testing performed at [facility] O:ESCCOL Isolated Urine Culture - [facility] Organism Comments Organism: 1.1 Antibiotic Interpretation RAIZA Status Urine Culture - [facility]See Below For Report Urine Culture - [facility] Testing performed at [facility] O:ESCCOL Isolated Urine Culture - [facility] Organism Comments Organism: 1.1 Antibiotic Interpretation RAIZA Status Urine Culture - [facility]75,000 CFU/ML Urine Culture - [facility] Testing performed at [facility] O:ESCCOL Isolated Urine Culture - [facility] Organism Comments Organism: 1.1 Antibiotic Interpretation RAIZA Status Urine Culture - [facility]See Below For Report Urine [facility] Testing performed at [facility] O:ESCCOL Isolated Urine Culture - [facility] Organism Comments Organism: 1.1 Antibiotic Interpretation RAIZA Status Urine Culture - FRMCAmikacin S F Urine Culture - [facility] Testing performed at [facility] O:ESCCOL Isolated Urine Culture - [facility] Organism Comments Organism: 1.1 Antibiotic Interpretation RAIZA Status Urine Culture - [facility]CAmoxicillin/Clavulanate S F Urine Culture - [facility] Testing performed at [facility] O:ESCCOL Isolated Urine Culture - [facility] Organism Comments Organism: 1.1 Antibiotic Interpretation RAIZA Status Urine Culture - [facility]CAmpicillin S F Urine Culture - [facility] Testing performed at [facility] O:ESCCOL Isolated Urine Culture - [facility] Organism Comments Organism: 1.1 Antibiotic Interpretation RAIZA Status Urine Culture - FRMCAztreonam S F Urine Culture - [facility] Testing performed at [facility] O:ESCCOL Isolated Urine Culture - [facility] Organism Comments Organism: 1.1 Antibiotic Interpretation RAIZA Status Urine Culture - [facility]CCeftazidime S F Urine Culture - [facility] Testing performed at [facility] O:ESCCOL Isolated Urine Culture - [facility] Organism Comments Organism: 1.1 Antibiotic Interpretation RAIZA Status Urine Culture - [facility]MCCeftazidime/Avibactam S F Urine Culture - [facility] Testing performed at [facility] O:ESCCOL Isolated Urine Culture - [facility] Organism Comments Organism: 1.1 Antibiotic Interpretation RAIZA Status Urine Culture - [facility]MCCeftolozane/Tazobactam S F Urine Culture - [facility] Testing performed at [facility] O:ESCCOL Isolated Urine Culture - [facility] Organism Comments Organism: 1.1 Antibiotic Interpretation RAIZA Status Urine Culture - [facility]CCiprofloxacin S F Urine Culture - [facility] Testing performed at [facility] O:ESCCOL Isolated Urine Culture - [facility] Organism Comments Organism: 1.1 Antibiotic Interpretation RAIZA Status Urine Culture - [facility]MCErtapenem S F Urine Culture - [facility] Testing performed at [facility] O:ESCCOL Isolated Urine Culture - [facility] Organism Comments Organism: 1.1 Antibiotic Interpretation RAIZA Status Urine Culture - FRMCGentamicin S F Urine Culture - [facility] Testing performed at [facility] O:ESCCOL Isolated Urine Culture - [facility] Organism Comments Organism: 1.1 Antibiotic Interpretation RAIZA Status Urine Culture - FRMCLevofloxacin S F Urine Culture - [facility] Testing performed at [facility] O:ESCCOL Isolated Urine Culture - [facility] Organism Comments Organism: 1.1 Antibiotic Interpretation RAIZA Status Urine Culture - FRMCMeropenem S F Urine Culture - [facility] Testing performed at [facility] O:ESCCOL Isolated Urine Culture - [facility] Organism Comments Organism: 1.1 Antibiotic Interpretation RAIZA Status Urine Culture - FRMCMeropenem/Vaborbactam S F Urine Culture - [facility] Testing performed at [facility] O:ESCCOL Isolated Urine Culture - [facility] Organism Comments Organism: 1.1 Antibiotic Interpretation RAIZA Status Urine Culture - FRMCNitrofurantoin S F Urine Culture - [facility] Testing performed at [facility] O:ESCCOL Isolated Urine Culture - [facility] Organism Comments Organism: 1.1 Antibiotic Interpretation RAIZA Status Urine Culture - FRMCTetracycline S F Urine Culture - [facility] Testing performed at [facility] O:ESCCOL Isolated Urine Culture - [facility] Organism Comments Organism: 1.1 Antibiotic Interpretation RAIZA Status Urine Culture - FR[facility]CTigecycline S F Urine Culture - [facility] Testing performed at [facility] O:ESCCOL Isolated Urine Culture - [facility] Organism Comments Organism: 1.1 Antibiotic Interpretation RAIZA Status Urine Culture - FRMCTobramycin S F Urine Culture - [facility] Testing performed at [facility] O:ESCCOL Isolated Urine Culture - [facility] Organism Comments Organism: 1.1 Antibiotic Interpretation RAIZA Status Urine Culture - FRMCAmpicillin/Sulbactam S F Urine Culture - [facility] Testing performed at [facility] O:ESCCOL Isolated Urine Culture - [facility] Organism Comments Organism: 1.1 Antibiotic Interpretation RAIZA Status Urine Culture - FR[facility]CCefazolin S F Urine Culture - [facility] Testing performed at [facility] O:ESCCOL Isolated Urine Culture - [facility] Organism Comments Organism: 1.1 Antibiotic Interpretation RAIZA Status Urine Culture - [facility]CCefepime S F Urine Culture - [facility] Testing performed at [facility] O:ESCCOL Isolated Urine Culture - [facility] Organism Comments Organism: 1.1 Antibiotic Interpretation RAIZA Status Urine Culture - FRMCCeftriaxone S F Urine Culture - [facility] Testing performed at [facility] O:ESCCOL Isolated Urine Culture - [facility] Organism Comments Organism: 1.1 Antibiotic Interpretation RAIZA Status Urine Culture - FR[facility]CCefuroxime S F Urine Culture - [facility] Testing performed at [facility] O:ESCCOL Isolated Urine Culture - [facility] Organism Comments Organism: 1.1 Antibiotic Interpretation RAIZA Status Urine Culture - FRMCPiperacillin/Tazobactam S F Urine Culture - [facility] Testing performed at [facility] O:ESCCOL Isolated Urine Culture - [facility] Organism Comments Organism: 1.1 Antibiotic Interpretation RAIZA Status Urine Culture - FRMCTrimethoprim/Sulfa S F Urine Culture - [facility] Testing performed at [facility] O:ESCCOL Isolated Urine Culture - [facility] Organism Comments Organism: 1.1 Antibiotic Interpretation RAIZA Status Performing Lab:see note ML - [facility] LB SEE REPORT - Molder Id information not found for OBX-specific creative producer legend CREATININE Reviewed date:07/14/2025 01:48:07 PM Interpretation: Performing Lab: Notes/Report: [facility] ,Creatinine2.250.55-1.02 mg/dLEstimated GFR ( Akageuf55>=60 mL/min/1.73m 2Estimated GFR (Non- Ame21>=60 mL/min/1.73m 2Performing Lab:see noteML - [facility] LBCT abdomen pelvis wo con Reviewed date:07/14/2025 01:48:07 PM Interpretation: Performing Lab: Notes/Report: Source Facility: [place] [address] [place] [address] CT Scan Report Signed Patient: SHEILA MAC MR#: [id number] : 1950 Acct:[id number] Age/Sex: 75 / F ADM Date: 07/14/25 Loc: LAB Attending Dr: Krzysztof Harp M.D. Ordering Physician: Krzysztof Harp M.D. Date of Service: 07/14/25 Procedure(s): CT abdomen pelvis wo con Accession Number(s): [id number] cc: Krzysztof Harp M.D. [place] [address] Patient Name: SHEILA MAC MRN: [id number] date: 1950 Sex: F Assigned Patient Location: LAB Current Patient Location: LAB Accession/Order Number: [id number] Exam Date: 07/14/2025 09:31 Report Date: 07/14/2025 10:12 At the request of: KRZYSZTOF HARP MD Procedure: CT abdomen pelvis wo con CT ABDOMEN AND PELVIS WITHOUT CONTRAST COMPARISON: 04/29/2024 CLINICAL DATA: Recurrent urinary tract infections and pelvic pressure. Spiral axial images were obtained through the abdomen and pelvis with oral contrast only. This CT exam was performed using one or more following dose reduction techniques: Automated exposure control, adjustment of the mA and/or kV according to patient size, or use of iterative reconstruction technique. Limited cuts through the lung bases show atelectasis and/or scarring. There is mild bronchiectasis and subpleural blebs. There is a tiny hiatal hernia. Evaluation of the intra-abdominal organs is slightly limited by the absence of contrast. There is minor cholelithiasis. No intrahepatic masses are seen. There are calcified hepatic and splenic granulomas. The pancreas and adrenal glands show no obvious acute findings. No renal calculi or hydronephrosis are seen. No ureteral dilatation or stones are identified. There is a tiny exophytic hypodensity at the superior pole of the left kidney that might be a cyst. There is atherosclerotic plaque involving a tortuous aorta, iliac and some of the visceral arteries. No enlarged lymph nodes or ascites are seen. The small bowel loops are not distended. A duodenal diverticulum is again seen. There is moderate stool throughout the colon. Colonic diverticula are visualized. Thoracolumbar levoscoliotic curvature and degenerative changes are present spine, greatest at the lower facets. Images through the pelvis show no dilated small bowel. The appendix is surgically absent. There is stool at the distal colon. There is a segment of sigmoid colon which is under distended and has apparent wall thickening. Additional colonic diverticula are seen. There is minor perisigmoid stranding. Appearance is similar to the prior and may be chronic though correlation is recommended to exclude any possibility of active inflammation. The uterus is not seen and is presumed to be surgically absent. The urinary bladder shows no abnormalities for the degree of distention. There are several pelvic phleboliths. No ascites is noted. CT/CT abdomen pelvis wo con IMPRESSION: CHRONIC APPEARING BIBASILAR PARENCHYMAL CHANGES. TINY HIATAL HERNIA. CHOLELITHIASIS. NO BOWEL OR URINARY TRACT OBSTRUCTION. MODERATE COLONIC STOOL. DIVERTICULAR DISEASE WITH SUSPECTED MINOR CHRONIC PERISIGMOID STRANDING THOUGH CLINICAL CORRELATION IS STILL SUGGESTED. NO OTHER ACUTE FINDINGS. Impression dictated by: Ling Fields M.D. 07/14/2025 10:12 AM Dictation Location: [place] [address] Electronically authenticated by: [id number] Y Date: 07/14/2025 10:12 Dictated By: Ling Fields M.D. Signed By: 07/14/25 1015 DD/ 1012 TD/TT: Supercalender Operator Helper:ALBINA hepatobiliary w pharm Reviewed date:07/21/2025 09:28:03 AM Interpretation: Performing Lab: Notes/Report: Source Facility: [place] [address] Nuclear Medicine Report Signed Patient: SHEILA MAC MR#: [id number] : 1950 Acct:[id number] Age/Sex: 75 / F ADM Date: 07/20/25 Loc: ALBINA Attending Dr: Krzysztof Harp M.D. Ordering Physician: Krzysztof Harp M.D. Date of Service: 07/20/25 Procedure(s): ALBINA hepatobiliary w pharm Accession Number(s): [id number] cc: Krzysztof Harp M.D. [place] [address] Patient Name: SHEILA MAC MRN: [id number] date: 1950 Sex: F Assigned Patient Location: [place] Current Patient Location: Accession/Order Number: [id number] Exam Date: 07/20/2025 08:46 Report Date: 07/21/2025 08:09 At the request of: KRZYSZTOF HARP MD Procedure: ALBINA hepatobiliary w pharm HIDA SCAN WITH CCK CLINICAL HISTORY: Nausea, vomiting, diarrhea and weight loss. Cholelithiasis. COMPARISON: CT 07/14/2025 Following the intravenous administration of 4.9 mCi of technetium 99m labeled Mebrofenin, anterior imaging of the abdomen was performed out to 60 minutes. There is uniform distribution of radionuclide within the liver. The common duct is visualized at 15 minutes. There is gallbladder activity at 45 minutes. The small bowel is definitely seen by 30 minutes. The patient subsequently ingested 8 ounces of Ensure Plus and imaging was performed an additional 60 minutes. There is appropriate emptying of the gallbladder on the static and dynamic images. A time/activity curve was generated. The gallbladder ejection fraction is 17%. Normal is greater than 40%. VT/ALBINA hepatobiliary w pharm IMPRESSION: GALLBLADDER DYSFUNCTION Impression dictated by: Ling Fields M.D. 07/21/2025 8:09 AM Dictation Location: [place] [address] Electronically authenticated by: [id number] Y Date: 07/21/2025 08:09 Dictated By: Ling Fields M.D. Signed By: 07/21/25810 DD/ 8 TD/TT: Supercalender Operator Helper:US PELVIS Reviewed date:07/26/2025 03:26:10 PM Interpretation: Performing Lab: Notes/Report: Source Facility: [place] [address] Ultrasound Report Signed Patient: SHEILA MAC MR#: [id number] : 1950 Acct:[id number] Age/Sex: 75 / F ADM Date: 07/25/25 Loc: US Attending Dr: Krzysztof Harp M.D. Ordering Physician: Krzysztof Harp M.D. Date of Service: 07/25/25 Procedure(s): US pelvis Accession Number(s): [id number] cc: Krzysztof Harp M.D. [place] [address] Patient Name: SHEILA MAC MRN: [id number] date: 1950 Sex: F Assigned Patient Location: US Current Patient Location: Accession/Order Number: [id number] Exam Date: 07/25/2025 13:08 Report Date: 07/26/2025 13:44 At the request of: KRZYSZTOF HARP MD Procedure: US pelvis Pelvic ultrasound. HISTORY: Pelvic pain. Hysterectomy. Possible oophorectomy. Ovaries not seen. No adnexal mass. No free fluid. Transvaginal imaging refused. US/US pelvis IMPRESSION: No adnexal mass or free fluid. Hysterectomy. Ovaries not visualized. Question of oophorectomy Impression dictated by: Elian Luna M.D. 07/26/2025 1:44 PM Dictation Location: [place] [address] Electronically authenticated by: [id number] Y Date: 07/26/2025 13:44 Dictated By: Elian Luna D.O. Signed By: 07/26/25 1347 DD/ TD/TT: Supercalender Operator Helper:US right upper quadrant Reviewed date:07/26/2025 03:26:10 PM Interpretation: Performing Lab: Notes/Report: Source Facility: [place] [address] Ultrasound Report Signed Patient: SHEILA MAC MR#: [id number] : 1950 Acct:[id number] Age/Sex: 75 / F ADM Date: 07/25/25 Loc: US Attending Dr: Krzysztof Harp M.D. Ordering Physician: Krzysztof Harp M.D. Date of Service: 07/25/25 Procedure(s): US right upper quadrant Accession Number(s): [id number] cc: Krzysztof Harp M.D. [place] [address] Patient Name: SHEILA MAC MRN: [id number] date: 1950 Sex: F Assigned Patient Location: Current Patient Location: Accession/Order Number: [id number] Exam Date: 07/25/2025 13:20 Report Date: 07/26/2025 13:42 At the request of: KRZYSZTOF HARP MD Procedure: US right upper quadrant Right upper quadrant ultrasound HISTORY: Right upper quadrant pain. Nodular liver contour with coarsened echotexture. No hepatic mass. No intrahepatic biliary ductal dilatation. No common bile duct dilatation. Negative ultrasound Montgomery's sign. 3 mm gallbladder wall thickening. Echogenic focus in the fundal region consistent with a gallstone. The pancreas unremarkable. Right kidney unremarkable. No hydronephrosis. Adequate blood flow patent portal vein. US/US right upper quadrant IMPRESSION: Cholelithiasis with borderline gallbladder wall thickening. Consider cholecystitis. No biliary duct dilatation. Liver cirrhosis Impression dictated by: Elian Luna M.D. 07/26/2025 1:42 PM Dictation Location[facility] Electronically authenticated by: [id number] Y Date: 07/26/2025 13:42 Dictated By: Elian Luna D.O. Signed By: 07/26/25 1344 DD/ 1342 TD/TT: Supercalender Operator Helper:Prothrombin Time INR Reviewed date:07/29/2025 12:49:53 PM Interpretation: Performing Lab: Notes/Report: [facility] ,Prothrombin Time10.89.0-11.6 secINR1.02 DESIRED INR: 2.0-3.0 CONDITIONS NOT LISTED BELOW 2.5-3.5 FOR PROSTHETIC HEART VALVE REPLACEMENT 2.5-3.5 RECURRENT THROMBOSIS Performing Lab:see noteML - [facility] LB Reason For Referral Diagnosis 1 Wrist pain, right (M 25.531) Referral Organization [facility] Referring Provider First Name Diego Referring Provider Last Name [facility] Referring Provider [facility] Referred Provider Vishnu Amezcua Referred Provider Specialty Orthopedic S urgery Referral Priority Routine Diagnosis 1 Lumbar radiculopathy (M54.16) Referral Organization [facility] Referring Provider First Name Diego Referring Provider Last Name [facility] Referring Provider [facility] Referred Provider Yael Atwood Referred Provider Specialty Orthopedic S urgery Referral Priority Routine Reason Cholelithiasis and l ow EF of the gallbladder Diagnosis 1 Cholelithiases (K80. 20) Referral Organization [facility] Referring Provider First Name Diego Referring Provider Last Name [facility] Khang Martell Referred Provider Specialty General Surg janie Referral Priority Routine Reason Gallstones on ct , u s pending, Poor ef on HIDA Diagnosis 1 Right upper quadrant abdominal pain (R10.11) Referral Organization [facility] Referring Provider First Name Diego Referring Provider Last Name Katiuska Referring Provider [facility] rd Referred Provider Khang Martell Referred Provider Specialty General Surg janie Referral Priority Routine Diagnosis 1 Gallstone (K80.20) Referral Organization [facility] Referring Provider First Name Diego Referring Provider Last Name [facility] Referred Provider Patricio Maria Referred Provider Specialty General Surg janie Referral Priority Routine Medications Medication SIG (Take, Route, Frequency, Duration) Notes Start Date End Date Status Calcium ActiveAspirin Low Dose AdultActiveMyrbetriq 50 MG1 tablet Orally Once a day; Duration: 30 days5ActiveMetoprolol Tartrate 25 MG1 tablet with food Orally Twice a day; Duration: 90 days4ActiveProtonix 40 MG1 tablet Orally bid; Duration: 90 daysActivePlavix 75 MG1 tablet Orally Once a day; Duration: 90 daysActiveVitamin D3 50 MCG (1999 UT)1 capsule Orally Once a day; Duration: 90 days5Active Immunizations Vaccine Route Administration Date Status Comme nts Flu, Fluad (25247) 65 yrs + High Dose Seasonal (3986-4419) Unknown 06/12/2022 Administered SARS-COV-2 (COVID 19) bivalent 30 mcg/0.3 ml ebnkOoqvqpt84/03/2022dministered Social History Tobacco Use: Social History Observation Description Date Details (start date - stop date) Never Smoker NA - NA Tobacco Use/Smoking Question Answer Notes Patient is a nonsmoker Alcohol Screen (Audit-C) Question Answer Notes Did you have a drink containing alcohol in the p ast year? No Sieqvg4WtycskykneqjraInkrhnicMBTSV-N (Standard) Question Answer Notes Did you have a drink containing alcohol in the p ast year? No Cxfeqr6IoqtvdndljhcisAvziyper Problems Problem Type SNOMED Code ICD Code Onset Dates Problem Status W/U Status Risk Notes Problem Essential hypertension (21415725 ) Essential (primary) hypertension (I10) ActiveconfirmedProblemType II diabetes mellitus without complication (085635659) Type 2 diabetes mellitus without complications (E11.9)ActiveconfirmedProblem Gastro-esophageal reflux disease without esophagitis (059893373)Gastro- esophageal reflux disease without esophagitis (K21.9)ActiveconfirmedProblem Transient ischemic attack (833676868)Other transient cerebral ischemic attacks and related syndromes (G45.8)ActiveconfirmedProblemComplex regional pain syndrome, type II, lower limb (121362968)Causalgia of right lower limb (G57.71) ActiveconfirmedProblemCerebral infarction due to carotid artery occlusion (230220717731611)Cerebral infarction due to unspecified occlusion or stenosis of unspecified cerebral artery (I63.50)ActiveconfirmedProblemVaricose veins of lower extremity (52161304)Asymptomatic varicose veins of left lower extremity (I83.92)ActiveconfirmedProblemEsophageal varices without bleeding (56106288) Esophageal varices without bleeding (I85.00)ActiveconfirmedProblemOther specified noninfective disorders of lymphatic vessels and lymph nodes (I89.8) ActiveconfirmedCalcified mediastinal lymph nodesProblemBronchiolectasis (05923706)Bronchiectasis, uncomplicated (J47.9)ActiveconfirmedProblemPulmonary fibrosis (49278962)Pulmonary fibrosis, unspecified (J84.10)Activeconfirmed ProblemDiaphragmatic hernia (43492405)Diaphragmatic hernia without obstruction or gangrene (K44.9)ActiveconfirmedProblemDiverticulosis of small intestine (7643985)Diverticulosis of small intestine without perforation or abscess without bleeding (K57.10)ActiveconfirmedProblemIrritable bowel syndrome (33470260)Irritable bowel syndrome without diarrhea (K58.9)Activeconfirmed ProblemSeborrheic dermatitis (36550702)Seborrheic dermatitis, unspecified (L21.9)ActiveconfirmedProblemAcquired spondylolisthesis (509580644) Spondylolisthesis, cervical region (M43.12)ActiveconfirmedProblemPain in left foot (542842982640951)Pain in left foot (M79.672)ActiveconfirmedProblemChronic kidney disease stage 2 (054415799)Chronic kidney disease, stage 2 (mild) (N18.2) ActiveconfirmedProblemChronic kidney disease stage 4 (013333900)Chronic kidney disease, stage 4 (severe) (N18.4)ActiveconfirmedProblemDysuria (12067772)Dysuria (R30.0)ActiveconfirmedProblemChronic fatigue syndrome (disorder) (48639729) Chronic fatigue, unspecified (R53.82)ActiveconfirmedProblemBrachial plexus disorder (9702148)Brachial plexopathy (G54.0)ActiveconfirmedProblemMitral regurgitation (59946980)Mitral regurgitation (I34.0)ActiveconfirmedProblem Gastroesophageal reflux disease (067672550)GERD (gastroesophageal reflux disease) (K21.9)ActiveconfirmedProblemCervical radiculopathy (98776715)Cervical radiculopathy (M54.12)ActiveconfirmedProblemTricuspid regurgitation (459363323) Tricuspid regurgitation (I07.1)ActiveconfirmedProblemCoronary artery disease (93825117)CAD (coronary artery disease) (I25.10)ActiveconfirmedProblemCoronary artery disease (68046165)Coronary artery disease (I25.10)ActiveconfirmedProblem Heart failure (25196259)Congestive heart failure (CHF) (I50.9)Activeconfirmed ProblemCarotid artery stenosis (53623690)Carotid artery stenosis (I65.29)Active confirmedProblemPeripheral edema (95722274)Peripheral edema (R60.9)Active confirmedProblemUrinary tract infectious disease (47463310)UTI (urinary tract infection) (N39.0)ActiveconfirmedProblemBenign essential hypertension (3130679) Benign essential hypertension (I10)ActiveconfirmedProblemLumbar radiculopathy (247432933)Lumbar radiculopathy (M54.16)ActiveconfirmedProblemOsteoporosis (82903616)Osteoporosis (M81.0)ActiveconfirmedProblemCholelithiasis (394555277) Cholelithiasis (K80.20)ActiveconfirmedProblemCervical spinal stenosis (26915673) Cervical spinal stenosis (M48.02)ActiveconfirmedProblemGastritis (8212919) Gastritis (K29.70)ActiveconfirmedProblemCirrhotic (595433085)Cirrhosis (K74.60) ActiveconfirmedProblemArthralgia of the pelvic region and thigh (369681318)Left hip pain (M25.552)ActiveconfirmedProblemChronic pancreatitis (459556814)Chronic pancreatitis (K86.1)ActiveconfirmedProblemBronchiectasis (29638052) Bronchiectasis (J47.9)ActiveconfirmedProblemAlopecia (11060649)Hair loss (L65.9) ActiveconfirmedProblemDegenerative disc disease (16531254)DDD (degenerative disc disease), lumbar (M51.36)ActiveconfirmedProblemShoulder joint pain (108703567) Shoulder pain, right (M25.511)ActiveconfirmedProblemPain in wrist (74754349)Left wrist pain (M25.532)ActiveconfirmedProblemDysarthria (4754259)Dysarthria (R47.1) ActiveconfirmedProblemGallstone (896676253)Gallstone (K80.20)Activeconfirmed ProblemCervical disc disorder (680179564)DDD (degenerative disc disease), cervical (M50.30)ActiveconfirmedProblemSpondylolisthesis (078259165) Spondylolisthesis (M43.10)ActiveconfirmedProblemLesion of ulnar nerve (780578665)Ulnar neuropathy of left upper extremity (G56.22)Activeconfirmed ProblemTension headache (210016543)Tension headache (G44.209)Activeconfirmed ProblemRight upper quadrant pain (515241566)Right upper quadrant abdominal pain (R10.11)ActiveconfirmedProblemCervical spondylosis without myelopathy (802225262)Cervical spondylosis without myelopathy (M47.812)Activeconfirmed ProblemDiverticulosis of colon (303850894)Diverticulosis of colon (K57.30)Active confirmedProblemDegeneration of cervical intervertebral disc (23842741) Degenerative cervical disc (M50.30)ActiveconfirmedProblemAphthous ulcer (080896531)Aphthous ulcer (K12.0)ActiveconfirmedProblemDisorder of female genital tract (101577672)Pelvic pressure in female (N94.89)Activeconfirmed ProblemPain in left foot (806801111315282)Left foot pain (M79.672)Active confirmedProblemChronic gastric ulcer (85135564)Chronic gastric ulcer (K25.7) ActiveconfirmedProblemRight upper lobe pneumonia (571833673)Right upper lobe pneumonia (J18.9)ActiveconfirmedProblemChronic obstructive pulmonary disease (31036464)COPD, mild (J44.9)ActiveconfirmedProblemDiverticular disease (253699013)Diverticular disease (K57.90)ActiveconfirmedProblemAcute bronchiolitis (1149014)Acute bronchiolitis (J21.9)ActiveconfirmedProblemMass of neck (287438851)Mass in neck (R22.1)ActiveconfirmedProblemCerebral infarction due to carotid artery occlusion (963902499154663)Parietal lobe infarction (I63.50)ActiveconfirmedProblemLumbosacral radiculopathy (5768081)L-S radiculopathy (M54.17)ActiveconfirmedProblemOsteoarthritis (373000670) Osteoarthrosis, unspecified whether generalized or localized, other specified sites (M19.90)ActiveconfirmedProblemSpasm of cervical paraspinous muscle (065443395)Spasm of cervical paraspinous muscle (M62.838)ActiveconfirmedProblem Arthralgia of the pelvic region and thigh (230473147)Hip pain, acute, left (M25.552)ActiveconfirmedProblemLeukocytosis (453239890)Elevated WBCs (D72.829) ActiveconfirmedProblemChronic gastritis (2672644)Gastritis, chronic (K29.50) ActiveconfirmedProblemAbdominal mass (finding) (760747745)Abdominal mass of other site (R19.09)ActiveconfirmedProblemEssential hypertension (00207640) Essential Hypertension (I10)ActiveconfirmedProblemEssential hypertension (42349963)BP (high blood pressure) (I10)ActiveconfirmedProblem Hypercholesterolemia (75319851)Hypercholesterolemia (E78.00)Activeconfirmed ProblemAcute pancreatitis (491419819)Pancreatitis, acute (K85.90)Activeconfirmed ProblemUrinary tract infectious disease (22736219)UTI (urinary tract infection), uncomplicated (N39.0)ActiveconfirmedProblemPelvic pain syndrome (N94.89)Active confirmedProblemSecondary pulmonary hypertension (53476348)Other secondary pulmonary hypertension (I27.29)ActiveconfirmedProblemDiabetic renal disease (570895947)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)Active confirmedProblemParietal lobe infarction (I63.89)ActiveconfirmedProblem Diverticular stricture (K56.699)ActiveconfirmedProblemCOVID-19 (141287233)COVID- 19 (U07.1)ActiveconfirmedProblemEosinophil count above reference range (finding) (006527475)Other eosinophilia (D72.19)ActiveconfirmedProblemEsophagitis (00275908)Esophagitis (K20.90)ActiveconfirmedProblemAcute worsening of stage 3 chronic kidney disease (N18.30)ActiveconfirmedProblemEdema of right upper arm (327860255)Edema of right upper arm (R60.0)Activeconfirmed Vital Signs Heart Rate 134 /min 10/16/2024 Lchnjngetyv09.2 degrees Vsugcutqod86/10/2707Rwtrloew52 %10/16/2024lood pressure javlagjst19 mm Hg08/31/20251700Uudxat97 in08/31/2025lood pressure poddfmto641 mm Hg 08/31/20259637Ciyebb065.6 lbs111/01/2024BMI21.54 kg/m208/31/2025 Procedures Procedure Date Ordered Date Performed Result Body Sit e Echocardiogram 10/01/2024 N/APFT Complete w/o Arterial Blood Gases12/16/2024N/A Encounters Encounter Location Date Provider Diagnosis [address] [address] 10/08/2024 Diego Hoy Urinary urgency R39. 15 and Wrist pain, acute, right M25.[address] [address] 07/29/2025 Diego Hoy Cirrhosis K74.[address] [address] 04/24/2025 Diego Hoy Dysuria R30.0 ; Street Light Servicer Helper adriana kidney disease due to diabetes mellitus E11.22 ; Chronic kidney disease, stage 4 (severe) N18.4 ; Lumbar radiculopathy M54.16 and Osteoporosis M81.[address] [address] 05/13/2025 Diego Hoy UTI (urinary tract infection), uncomplicated N39.0 and Dysuria R30.[address] [address] 07/08/2025 Diego Hoy Pelvic pressure in f emale N94.89 ; UTI (urinary tract infection), uncomplicated N39.0 and Dysuria R30.[address] [address] 07/22/2025 Diego Hoy Right upper quadrant abdominal pain R10.11 ; Causalgia of right lower limb G57.71 ; Gallstone K80.20 and Pelvic pain syndrome N94.[address] [address] 08/31/2025 Diego Hoy Esophageal varices without bleeding I85.00 and Cholelithiasis K80.[address] [address] 10/16/2024 Diego Hoy Fatigue R53.83 ; Fev er R50.9 ; Body aches R52 and Influenza A J10.[address] [address] 10/20/2024 Diego Hoy Bronchiectasis, uncomplicated J47.9 and Right upper lobe pneumonia J18.[address] [address] 10/30/2024 Diego Hoy DDD (degenerative di sc disease), lumbar M51.36 and Lumbar radiculopathy M54.[address] [address] 12/01/2024 Diego Hoy UTI (urinary tract infection) N39.0 ; UTI (urinary tract infection), uncomplicated N39.0 ; Dysuria R30.0 and Type 2 diabetes mellitus without complications E11.[address] [address] 12/16/2024 Diego Hoy Lumbar radiculopathy M54.16 and Bronchiectasis J47.9 [facility] [address] [place] [address] 10/01/2024 Diego Martiny Chronic pancreatitis K86.1 ; Pulmonary fibrosis, unspecified J84.10 ; Acute worsening of stage 3 chronic kidney disease N18.30 ; Type 2 diabetes mellitus without complications E11.9 ; Other secondary pulmonary hypertension I27.29 and Acute bronchitis, unspecified organism J20.9 [facility] [address] [place] [address] 08/03/2025 Diego Hoy [facility] [place] [address] 08/03/2025[facility] [place] [address]/10/2024[facility] [place] [address]/12/2024Doug HoyAbdominal pressure R10.9[facility] [place] [address]/12/2024 Diego HoyGallstone K80.20[place] [address] [place] [address]/07/2025Doug HoyCholelithiases K80.20 and Other specified diseases of gallbladder K82.8[facility] [place] [address]/08/2025[facility] [place] [address]/[facility] [place] [address]/ Diego HoyGallstone K80.20[facility] [place] [address]/[facility] [place] [address]/11/2024[facility] [place] [address]/01/2025Doug HoyUTI (urinary tract infection) N39.0[facility] [place] [address]/05/2025Doug HoyUTI (urinary tract infection), uncomplicated N39.0[facility] [place] [address]/Doug HoyCausalgia of right lower limb G57.71 and Gastroenteritis K52.9[facility] [place] [address]/Doug HoyAbdominal pressure R10.9[facility] [place] [address]/Doug Hoy [facility] [place] [address] 11/26/2024[facility] [place] [address]/Doug HoyPersistent cough R05.3[facility] [place] [address]/11/2024[facility] [place] [address]/ [facility] [place] [address]/[facility] [place] [address]/Doug HoyShortness of breath R06.02[facility] [place] [address]/ [facility] [place] [address]/[facility] [place] [address]/09/2024Doug HoyWrist pain, right M25.531 and Chronic pancreatitis K86.1[facility] [place] [address]/Doug HoyEsophageal varices without bleeding I85.00 ; GERD (gastroesophageal reflux disease) K21.9 and Type 2 diabetes mellitus without complications E11.9 Assessments Encounter Date Diagnosis (ICD Code) Assessment Notes Treatment Notes Treatment Clinical Notes Section Notes 10/01/2024 Chronic pancreatitis (ICD-10 - K 86.1) 10/08/2024Urinary urgency (ICD-10 - R39.15)10/08/2024Wrist pain, acute, right (ICD-10 - M25.531)10/16/2024Fatigue (ICD-10 - R53.83)10/16/2024Fever (ICD-10 - R50.9)10/20/2024ronchiectasis, uncomplicated (ICD-10 - J47.9)10/20/2024Right upper lobe pneumonia (ICD-10 - J18.9)10/30/2024Lumbar radiculopathy (ICD-10 - M54.16)10/30/2024DDD (degenerative disc disease), lumbar (ICD-10 - M51.36) 12/01/2024UTI (urinary tract infection) (ICD-10 - N39.0)12/01/2024UTI (urinary tract infection), uncomplicated (ICD-10 - N39.0)Drink plenty of water. Avoid drinks like coffee, alcohol and soft frinks, as these can irritate your bladder and aggravate your frequent or urgent need to urinate. Apply a warm heating pad to your abdomen to minimize bladder pressure or discomfort. You have been prescribed antibiotics for a urinarytract infection. Antibiotics may bother your stomach, so try taking them with a light meal (unless instructed otherwise by your pharmacist). It is important to take them until they are finished. You can use yxhk-anm-zmswvvf acetaminophen or ibuprofen if needed for pain. You should follow up with your Primary Care Physician or return to clinic if not improving in the next 3-5 days.12/16/2024Lumbar radiculopathy (ICD-10 - M54.16)12/16/2024 Bronchiectasis (ICD-10 - J47.9)03/02/2025Esophageal varices without bleeding (ICD-10 - I85.00)no issude wiht swalloig - follow up03/02/2025GERD (gastroesophageal reflux disease) (ICD-10 - K21.9)GERD -s taberl no trouble elpibsxpzz59/15/2025Dysuria (ICD-10 - R30.0)04/24/2025hronic kidney disease due to diabetes mellitus (ICD-10 - E11.22)strabel - tracking labs05/13/2025UTI (urinary tract infection), uncomplicated (ICD-10 - N39.0)Drink plenty of water. Avoid drinks like coffee, alcohol and soft frinks, as these can irritate your bladder and aggravate your frequent or urgent need to urinate. Apply a warm heating pad to your abdomen to minimize bladder pressure or discomfort. You have been prescribed antibiotics for a urinarytract infection. Antibiotics may bother your stomach, so try taking them with a light meal (unless instructed otherwise by your pharmacist). It is important to take them until they are finished. You c an use vlsb-pdq-snmzglf acetaminophen or ibuprofen if needed for pain. You should follow up with your Primary Care Physician or return to clinic if not improving in the next 3-5 days.07/08/2025Pelvic pressure in female (ICD-10 - N94.89)07/22/2025ausalgia of right lower limb (ICD-10 - G57.71)07/22/2025Right upper quadrant abdominal pain (ICD-10 - R10.11)want to see Dr Martell for gallstones - will check u/s to complete swork up5Cirrhosis (ICD-10 - K74.60)08/31/2025Esophageal varices without bleeding (ICD-10 - I85.00)08/31/2025 Cholelithiasis (ICD-10 - K80.20)10/01/2024Shortness of breath (ICD-10 - R06.02) 10/11/2024Wrist pain, right (ICD-10 - M25.531)12/01/2024Persistent cough (ICD-10 - R05.3)05/15/2025UTI (urinary tract infection) (ICD-10 - N39.0)05/19/2025UTI (urinary tract infection), uncomplicated (ICD-10 - N39.0)06/02/2025ausalgia of right lower limb (ICD-10 - G57.71)07/10/2025bdominal pressure (ICD-10 - R10.9) 07/14/2025bdominal pressure (ICD-10 - R10.9)07/14/2025Gallstone (ICD-10 - K80.20)07/21/2025Other specified diseases of gallbladder (ICD-10 - K82.8) 07/21/2025holelithiases (ICD-10 - K80.20)07/28/2025Gallstone (ICD-10 - K80.20) 12/01/2024Dysuria (ICD-10 - R30.0)06/02/2025Gastroenteritis (ICD-10 - K52.9) 5Chronic pancreatitis (ICD-10 - K86.1)07/22/2025Gallstone (ICD-10 - K80.20)07/08/2025UTI (urinary tract infection), uncomplicated (ICD-10 - N39.0) Drink plenty of water. Avoid drinks like coffee, alcohol and soft frinks, as these can irritate your bladder and aggravate your frequent or urgent need to urinate. Apply a warm heating pad to your abdomen to minimize bladder pressure or discomfort. You have been prescribed antibiotics for a urinarytract infection. Antibiotics may bother your stomach, so try taking them with a light meal (unless instructed otherwise by your pharmacist). It is important to take them until they are finished. You can use kgec-elp-flcybxn acetaminophen or ibuprofen if needed for pain. You should follow up with your Primary Care Physician or return to clinic if not improving in the next 3-5 days.05/13/2025 Dysuria (ICD-10 - R30.0)04/24/2025hronic kidney disease, stage 4 (severe) (ICD- 10 - N18.4)oirmdlyx91/23/2025Type 2 diabetes mellitus without complications (ICD-10 - E11.9)Well contyroll sugare 110's - folowing god diet - and no low times10/16/2024ody aches (ICD-10 - R52)10/01/2024Pulmonary fibrosis, unspecified (ICD-10 - J84.10)10/16/2024Influenza A (ICD-10 - J10.1)12/01/2024 Type 2 diabetes mellitus without complications (ICD-10 - E11.9)10/01/2024ute worsening of stage 3 chronic kidney disease (ICD-10 - N18.30)04/24/2025Lumbar radiculopathy (ICD-10 - M54.16)Seeing Dr Mon07/08/2025Dysuria (ICD-10 - R30.0) 07/22/2025Pelvic pain syndrome (ICD-10 - N94.89)04/24/2025Osteoporosis (ICD-10 - M81.0)10/01/2024Type 2 diabetes mellitus without complications (ICD-10 - E11.9) 10/01/2024Other secondary pulmonary hypertension (ICD-10 - I27.29)10/01/2024 Acute bronchitis, unspecified organism (ICD-10 - J20.9)Rest and drink more liquids, especially water. You may use a humidifier or vaporizer to help keep th e drainage moist. Hvaz-wni-lglozrl Nasal Saline may help the stuffy and runny nose. Use Ibuprofen and or Tylenol as needed for fever, chills, body aches or pain. Children 5 years old should not be given gopj-tlt-gyzusaf cough and cold medications such as guaifenesin and dextromethorphan. If you're over age 5, you may try ebcm-yxq-ydjooul cold medications such as guaifenesin and dextromethorphan, or multi-symptom cold reliever such as Dayquil to help reduce the symptoms. Antibiotics have been prescribed. You should take these until completed and follow the directions. Antibiotics can sometimescause upset stomach, and in rare cases, serious allergic reactions or serious gastrointestinal problems. If you start having severe abdominal pain, severe vomiting, or bloody diarrhea, you should be reevaluated by your physician or urgent care immediately. Follow up with your Primary Care Provider or return to clinic if symptoms do not improve within 3-5 days. If you develop severe symptoms such as shortness of breath, repeated vomiting, coughing up blood, or chest pain you should go to the emergency room or call [phone] Recommended to rest and use a heating pad on the area. Take NSAIDs for pain as needed Plan Of Treatment Pending Test Test Name Order Date HIDA Scan 07/14/2025 CMP (COMPLETE METABOLIC PANEL) 4 CMP (COMPLETE METABOLIC PANEL) 4 CMP (COMPLETE METABOLIC PANEL) 3 UA (URINALYSIS, COMPLETE) 05/15/2025 UA (URINALYSIS, COMPLETE) 05/21/2023 SED RATE (ESR) 04/28/2024 HEMOGLOBIN A1C (GLYCO) 03/02/2025 HEMOGLOBIN A1C (GLYCO) 03/22/2023 IRON, TOTAL 03/22/2023 IRON, TOTAL 03/02/2025 LIPID PANEL (CHOL/TRIG/HDL/LDL) 03/02/20 25 LIPID PANEL (CHOL/TRIG/HDL/LDL) 03/22/20 CBC WITH DIFF (EXP 07/2025) 03/22/2023 VITAMIN D, 25 LEVEL (TOTAL) 03/22/2023 VITAMIN D, 25 LEVEL (TOTAL) 03/02/2025 Echocardiogram 10/01/2024 XR Chest PA and Lateral (Routine CXR) * 10/08/2023 CT Abdomen and Pelvis w/contrast * 12/09 CT Foot LT w/o contrast * (Optional 3D R endering) 01/18/2023 MRI Brain w/o contrast 08/15/2023 US Gallbladder 12/30/2023 US Liver and Pancreas 12/30/2023 US Renals and Bladder 10/25/2023 T3 FREE, T4 FREE and TSH 04/28/2024 Urinalysis Microscopic 05/21/2023 Urinalysis Microscopic 05/13/2025 Urinalysis Microscopic 05/15/2024 Urinalysis Microscopic 10/08/2023 B12/FOLATE 03/22/2023 RANDOM URINE PROTEIN 03/02/2025 Urine Culture 05/15/2025 CREATININE 12/25/2023 Insulin Level 03/22/2023 PFT Complete w/o Arterial Blood Gases PT - INR 07/29/2025 Pulmonary Function Test Complete 023 High Sensitivity Troponin 10/08/2023 XR Hand 3 Views Right 10/08/2024 XR Hand 3 Views Left 07/30/2024 BNP 03/22/2023 CULTURE URINE 10/08/2023 CULTURE URINE 05/15/2024 CULTURE URINE 05/13/2025 FERRITIN 03/22/2023 PROF CHEM 8 (BAS METB) 01/10/2023 THYROID PROFILE WITH TSH 07/23/2024 TROPONIN, HIGH SENSITIVITY 04/28/2024 URINE MICROSCOPIC ONLY 05/15/2025 CT ABD and PELV W CON 07/10/2025 CT ABD and PELVIS WO CON 07/14/2025 CT CHEST WO CON 12/01/2024 MRI LSPINE WO CON 10/30/2024 US ABD 07/22/2025 US PELVIS AND TRANSVAG 07/22/2025 XR CHEST 2 V 08/18/2024 XR CHEST 2 V 10/01/2024 XR LSPINE MIN 4 VIEWS 10/01/2024 THYROID PANEL (T4/TSH/FREE T3) THYROID PANEL (T4/TSH/FREE T3) ECHOCARDIO M/2D COMPLETE 01/18/2024 XR HIP RT 2 3V W PELVIS 03/10/2024 XR HIP RT 2 3V W PELVIS 06/02/2024 US VENOUS DOPPLER L ARM 03/27/2024 US VENOUS DOPPLER L ARM 08/01/2024 *CARDIO Stress Test - Lexiscan Nuclear 1 09/22/2023 XR pelvis min 3V 06/02/2024 CMP (COMP MET ROJO) w/eGFR CKD-EPI 2024 CBC WITH DIFF 03/02/2025 Insurance Providers Payer Name Payer Address Payer Phone Subscriber Number Group Number Insured Name Patient Relationship to Insured Coverage Start Date Coverage End Date ANTH MEDICARE ADV PLAN [address] [place] [phone] [id number] Aslinger , Sheila Self - patient is the insured 2 Medications Administered Medication Instructions Date of Administration Dosage Notes Ceftriaxone 1 gram gDEPO-Vqjgwk32 vd322Proymysfkfkkc, 4mg/mL mg Dexamethasone, 4mg/mL mgKenalog-4005/6772729 mgKenalog-40 mgKenalog-4005/ vd70Xcxhpnp-0307/18/397582 uu89Gunpemxwz Cqqggvcglzdw06/11/085780 mgKetorolac Npvhmyfjlsid86/29/357996 bx84Eezplcjin Lwkecnfhutfo98/18/574535 zu49Ekaoymopa Cwodulvisuog47/01/202430 mgKetorolac Vtfedcwcvewu16/23/415128 nk88Zfdokneba Rtujsmjtszzq84/25/597876 mgKetorolac Uzesrtaaxclt41/20/320335 mgKetorolac Qvucwgpftbeb99/29/202530 mgOrphenadrine Dyreyjx67/18/030563 ld39Zbuxcuwcoihl Gsqoltd630 jxMwgtzsljm60/06/073638 mg Medical (General) History Medical History History ICD Code Parietal lobe infarction I63.50 COVID-19 U07.1 Carotid artery stenosis I65.29 Tension headache G44.209 Spasm of cervical paraspinous muscle M62 .838 Dysarthria R47.1 Osteoarthrosis, unspecified whether generalized or localized, other specified sites M19.90 Gastritis K29.70 Hiatal hernia K44.9 Mass in neck R22.1 Edema of right upper arm R60.0 Bronchiectasis, uncomplicated J47.9 Abdominal pain, right upper quadrant R10 .11 Asymptomatic varicose veins of left lowe r extremity I83.92 Peripheral edema R60.9 Hypercholesterolemia E78.00 Pleurisy R09.1 GERD (gastroesophageal reflux disease) K 21.9 Osteoporosis M81.0 Chronic pancreatitis K86.1 Type 2 diabetes mellitus without complic ations E11.9 Cervical spinal stenosis M48.02 Spondylolisthesis, cervical region M43.1 2 Cervical spondylosis without myelopathy M47.812 Cervical radiculopathy M54.12 Degenerative cervical disc M50.30 Gastritis, chronic K29.50 Other transient cerebral ischemic attack s and related syndromes G45.8 Chronic gastric ulcer K25.7 Esophagitis K20.90 Essential Hypertension I10 Abdominal mass of other site R19.09 large duodenal diverticulum versus mass Surgical History Surgery Date(Month/Year) Hysterectomy Back surgeryCardiac Catheterization- 10/30/2006, 12/07/20183954Vwvfowkmbkb78/17/2024 Upper GI Dwgrvheyz33/18/16Pqwzxhjlnlz63/15/25[facility] History Reason Date(Month/Year) Stroke 2022
--- OUTSIDE RECORDS SUMMARY | 2025-09-08 09:09 | XMS_ITS | Encounter Summary ---
Author Organization [facility] Address [address] [place] [address] Care Team Providers Care Breaker Up Machine Operator Name Role Phone Alvaro Harp MD Primary Care Provider [phone] Reason for Referral * Imaging (Routine) - Pending ReviewSpecialtyDiagnoses / ProceduresReferred By ContactReferred To ContactCardiology Diagnoses PVC (premature ventricular contraction) Abnormal EKG Procedures Transthoracic echo (TTE) complete Kyra Soto CNP [address] [place] [address] Phone: tel: fax: Referral IDStatusReasonStart DateExpiration DateVisits RequestedVisits [id number] Review Perform Procedure 51 Encounter Details DateTypeDepartmentCare Team (Latest Contact Info)Bcjbyftcvfq09/17/2025Orders Only [facility] [address] [place] [address] Guera Russo MA PVC (premature ventricular contraction) (Primary Dx); Abnormal EKG Social History Tobacco UseTypesPacks/DayYears UsedDateSmoking Tobacco: NeverSmokeless Tobacco: NeverPHQ-2AnswerDate RecordedPatient Health Questionnaire-2 Mbhlt80811/02/2024 Humiliation, Afraid, Rape, and Kick questionnaireAnswerDate RecordedWithin the last year, have you been afraid of your partner or ex-partner?No09/01/2025 Emotionally AbusedNot on file09/01/2025Physically AbusedNot on file09/01/2025 Sexually AbusedNot on file09/01/2025CommentsUnknownSex and Gender InformationValueDate RecordedSex Assigned at RwrmmFfxlio00/30/2025 3:49 PM EDT Legal AzoCmkjjb07/29/2022 10:03 PM EDTGender EtssytkoXopybf84/30/2025 3:49 PM EDTSexual OrientationHeterosexual or Pfppgreg39/30/2025 3:49 PM EDTdocumented as of this encounter Plan of Treatment DateTypeDepartmentCare Team (Latest Contact Info)Qkpreerokky79/02/2026 9:00 AM ESTOffice Visit [facility] [address] [place] [address] Elio Youssef MD [address] [place] [phone] NameTypePriorityAssociated DiagnosesOrder ScheduleTransthoracic echo (TTE) completeEchocardiographyRoutine PVC (premature ventricular contraction) Abnormal EKG Expected: 08/26/2025 (Approximate), Expires: 08/26/2027documented as of this encounter Visit Diagnoses Diagnosis PVC (premature ventricular contraction)- Primary Other premature beats Abnormal EKG Nonspecific abnormal electrocardiogram (ECG) (EKG) documented in this encounter Care Teams Team MemberRelationshipSpecialtyStart DateEnd Alvaro Harp MD [address] [facility] [address] [address] PCP - General12/14/22documented as of this encounter
--- OUTSIDE RECORDS SUMMARY | 2025-09-08 09:09 | XMS_ITS | Clinical Summary ---
Author Organization [facility] Address [address] [place] [address] Care Team Providers Care Embedded Firmware Engineer Name Role Phone Elio Sesay DO Unavailable [phone] Alvaro Harp MD Primary Care Provider [phone] Allergies Active AllergyReactionsCriticalityNoted DateCommentsIodinated Contrast Media 05/24/20232717Dkcllqig37/14/2119KexoigEsczXyf56/04/9863Irtehjjcdtj05/14/2023 Medications MedicationSigDispense QuantityRefillsLast FilledStart DateEnd DateStatus aspirin [...] of multiple pubic rami, right, initial encounter ([facility])Administer 1 spray into one nostril Daily 3.7 mL 07/15/2024ctive gabapentin (Neurontin) 100 MG capsule Indications:Left hand painTake 1 capsule (100 mg) by mouth in the morning and 1 capsule (100 mg) before bedtime. 60 capsule 212/02/2024Active Active Problems ProblemNoted DateDiagnosed DateInternal derangement of right knee01/09/2024 Primary osteoarthritis of left knee01/09/20242477Xvpzebincmtciqp62/14/2023 Tybkhdgdavawyz91/03/2019Chronic egqaxpqlehmw59/23/6011Mnyqxvascesq28/19/2013 Degeneration of lumbar intervertebral disc05/27/2010Pure hypercholesterolemia 03/18/2010GERD (gastroesophageal reflux disease)02/11/2010Disorder of autonomic nervous ayrnkv2702/11/2010Diabetes mellitus without giuhoadwsnfx17/04/2010Chronic systolic heart tqakdqs7202/11/2010therosclerosis of coronary yqboey3602/11/2010 Encounters DateTypeDepartmentCare QwpyXvoxwagqwoz82/18/2025 9:10 AM ESTAncillary Procedure [facility] [address] [place] [address] 07/28/2025 9:00 AM ESTOffice Visit [place] [address] [place] [address] Ronaldo Hernandez PA Acute pain of right knee (Primary Dx); Effusion of right knee; Internal derangement of right knee07/28/2025amboo flowsheet [facility] [address] [place] [address] Ronaldo Hernandez PA 07/28/2025Travelfrom Last 3 Months Immunizations ImmunizationAdministration DatesNext DueInfluenza, High Dose Seasonal, Preservative Free06/12/2022,06/18/2018,06/14/2016,06/03/2015Influenza, High-dose Seasonal, Quadrivalent, Preservative Free05/30/2022,06/15/2021Influenza, Seasonal, Quadrivalent, Byigzhlbhl62/26/2023Influenza, injectable, quadrivalent, preservative free05/22/2017Influenza, seasonal, eanliyvodp07/01/2014Influenza, seasonal, intradermal, preservative free06/30/2013Pneumococcal Conjugate PCV 13 09/10/2014Pneumococcal Polysaccharide TLDV294709/13/20127309PYMA-CpL-6, Unspecified 01/10/2021Zoster, live08/11/2013 Family History Medical HistoryRelationNameCommentsCancerFatherHeart diseaseMotherRelationName StatusCommentsFatherDeceasedMotherDeceasedOtherSpouseAlive Social History Tobacco UseTypesPacks/DayYears UsedDateSmoking Tobacco: Never Tobacco Cessation:Counseling Given: Not Answered Alcohol UseStandard Drinks/WeekCommentsNever0 (1 standard drink = 0.6 oz pure alcohol)CommentsUnknownSex and Gender InformationValueDate RecordedSex Assigned at BirthNot on fileLegal OqaQpdivu46/01/2023 8:31 PM EDTGender Identity Not on fileSexual OrientationNot on file Last Filed Vital Signs Vital SignReadingTime TakenCommentsBlood Abujjggk214/8208/11/2024 2:21 PM EST Nskmw534608/11/2024 2:21 PM ISFCntnebbqdnk43.3 ??C (97.4 ??F)01/09/2024 8:13 AM EDTRespiratory Rate--Oxygen Ejlfbmrhds04%08/11/2024 2:21 PM ESTInhaled Oxygen Concentration--Qjdtyp99.4 kg (120 lb)07/28/2025 9:03 AM HXZGcrytt369 cm (5' 3 ) 07/28/2025 9:03 AM ESTBody Mass Index21.26109/27/2024 9:03 AM EST Plan of Treatment Health MaintenanceDue DateLast DoneCommentsPneumococcal Vaccine: 65+ Years Apguyvqfc35/01/2015, 07/14/20139201NksbulueomhIwnrsnajmjwl45/16/2021, 05/26/2021, 10/16/2012Colorectal Cancer ScreeningDiscontinuedInfluenza VaccineCompleted 06/21/2025, 06/19/2024, 06/05/2023, Additional history existsCT Colonography DiscontinuedFIT-DNADiscontinuedFITDiscontinuedFOBTDiscontinuedSigmoidoscopy Discontinued Procedures Procedure NamePriorityDate/TimeAssociated DiagnosisCommentsPR ARTHROCENTESIS ASPIR&/INJ MAJOR JT/BURSA W/O PVTuwflix57/18/2025 9:25 AM EST Effusion of right knee Internal derangement of right knee XR KNEE 1-2 VIEWS VVBUXXqbinhi57/18/2025 9:07 AM EST Acute pain of right knee ZTIXNMLYEBTCrnfkpg70/06/2013 12:00 PM EST from Last 3 Months or Most Recently Relevant to Health Maintenance Results * AR ARTHROCENTESIS ASPIR&/INJ MAJOR JT/BURSA W/O US (07/28/2025 [...] the usual sterile fashion. Authorizing ProviderResult TypeResult StatusMattcarmen Hernandez PAIN CLINIC/BEDSIDE ORDERABLESFinal Result * XR [...] No acute bony ??process Authorizing ProviderResult TypeResult StatusMatthedon Hernandez PAIMG XR PROCEDURES Final Result * Colonoscopy (10/16/2012 12:00 PM EST)Anatomical RegionLateralityModality EndoscopySpecimen (Source)Anatomical Location / LateralityCollection Method / VolumeCollection TimeReceived Time10/16/2012 12:00 PM EST Narrative 10/16/2012 12:00 PM EST PERFORMED AT [facility] LOCATION:[id number] Normal Procedure Note CONVERSION, GENERIC - 01/25/2023 PERFORMED AT [facility] LOCATION:[id number] Normal Authorizing ProviderResult TypeResult StatusDakelli Brower MDENDOSCOPY PROCEDURE ORDERABLESFinal Result from Last 3 Months or Most Recently Relevant to Health Maintenance Insurance Care Teams Team MemberRelationshipSpecialtyStart DateEnd Date Alvaro Harp MD [address] [place] [address] PCP - GeneralFamily Abhwuqkv94/17/25 Elio Sesay DO [address] [place] [address] Referring MtvabtehpTvrziemxf72/4/24
--- OUTSIDE RECORDS SUMMARY | 2025-09-08 09:09 | XMS_ITS | Patient Health Record ---
Author Organization [facility] Address [address] [place] [address] Care Team Providers Care Supervisor Asbestos Removal Name Role Phone Donna Alvaro Primary Care Provider Yael Joseph Unavailable [phone] Millicent Baird Unavailable Allergies Allergen (clinical drug ingredient) Drug/Non Drug Allergy documented on EMR Reaction Allergy Type Onset Date Status PCN (uncoded)UnknownAllergyActive Results Component Value Reference Range Notes Surgery Scheduling (Not yet reviewed by provider) Interpretation: Performing Lab: Notes/Report: Primary Insurance Company: MEDICARE ANTHEM Surgeon/Assist:ST ANGUIANO/DANIEL OR ALEXISSurgery Location:[facility] Date & Time: 05/05/25 @ 9:30AMHosp arrival time day of:7:30AMSurgery End Time:12:30PM Procedure:L1-5 DECOMPRESSION AND FUSION, L4-5 TLIFSpecial Equipment:SSEP, PRONE, JOSE F TABLE, CELL SAVER, SURGALIGNDiagnosis:M48.07 STENOSISAdmission Type: INPATIENTAnesthesia Type/CPNB:GENERALPost-op Appointment Date:06/18/25 @ 1:10PM FINDLAYLab [facility] Date/Time:ASAPScheduler:Josep Physician: DONNA 04/20/25 @ 9:30AMClearance Appt Date/TCARDIOLOGY OSMAR DONOVAN 04/10/25 @ 2PM History & Physical Appointment Date/:05/01/25 @ 10:50AM KATIE Reason For Referral Reason START 04/10/25..................................05/05/25................................. 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 lower extremity pain (M51.372) Diagnos is 3 Spondylolisthesis, lumbar region (M43.16 ) Diagnos is 4 Other form of scoliosis of lumbar spine (M41.86) Referra l [facility] Referri ng Provide r First Name Yael Referri liberty Provide r Last Name [facility] Anguiano Referri ng Provide r Special ity Orthopedic Surgery Referre d [facility] Ref[facility] d Address [address] [place] [id number] [facility], Procedu re 1 Arthrodesis, PLIF w/ PSF including vishnu ectomy and/or discectomy, sufficient to prepare interspace (other than for decompression), single interspace and segment; lumbar () Procedu re 2 Arthrodesis single, each addn'l level, p osteriolateral technique () Procedu re 3 JADE FACETC/FRMT ARTHRD LUM 1 (92415) Procedu re 4 Laminectomy, facetectomy and foraminotom y single lumbar (29714) Procedu re 5 Laminectomy, facetectomy and foraminotom y additional vertebral segment (32363) Procedu re 6 Posterior non-segmental instrumentation () Procedu re 7 Autograft for spine surgery only; local obtained from same incision () General Notes Keshia Avendaño 03/31/2025 10:45:53 AM >, Keshia Avendaño 03/31/2025 11:50:07 AM >, Patricia Kuo 04/10/2025 08:41:26 AM > SURGERY SHOWING CANCELLED. DO YOU KNOW IS PATIENT GETTING RESCHEDULED? NOTHING WAS DOCUMENTED ABOUT HIM BEING CANCELLED/RESCHEDULED., Keshia Avenadño 04/13/2025 09:10:51 AM >CANCELLED, SENT THEN PATIENT CALLED AND CANCELLED, Migdalia Kuoa 04/13/2025 10:40:54 AM > NOTED, THANK YOU. ADDRESSED REFERRAL Referra l Priorit y Routine Medications Medication SIG (Take, Route, Frequency, Duration) Notes Start Date End Date Status sucralfate ActivemetoprololActivePlavixActiveTrelegy ElliptaActivepantoprazoleActive Problems Problem Type SNOMED Code ICD Code Onset Dates Problem Status W/U Status Risk Notes Problem Acquired spondylolis thesis (855927571) Spondylolisthesis, lumbar region (M43.16) ActiveconfirmedProblemSpinal stenosis of lumbar region (07705282)Spinal stenosis, lumbosacral region (M48.07)ActiveconfirmedProblemScoliosis of lumbar spine (804519029)Other form of scoliosis of lumbar spine (M41.86)Activeconfirmed ProblemDegeneration of intervertebral disc of lumbosacral region with discogenic back pain and lower extremity pain (M51.372)Activeconfirmed Procedures Procedure Date Ordered Date Performed Result Body Sit e EKG 03/31/2025 N/A Encounters Encounter Location Date Provider Diagnosis [facility] [address] [place] [address] [place] [address] 01/23/2025 Millicent mendezRichton Spondylolisthesis, lumbar region M43.16 ; Degeneration of intervertebral disc of lumbosacral region with discogenic back pain and lower extremity pain M51.372 ; Spinal stenosis, lumbosacral region M48.07 and Other form of scoliosis of lumbar spine M41.86 [facility] [place] [address] [place] [address] 03/31/2025 Yael Atwood Spondylolisthesis, lumbar region M43.16 ; Spinal stenosis, lumbosacral region M48.07 ; Degeneration of intervertebral disc of lumbosacral region with discogenic back pain and lower extremity pain M51.372 and Other form of scoliosis of lumbar spine M41.86 Assessments Encounter Date Diagnosis (ICD Code) Assessment Notes Treatment Notes Treatment Clinical Notes Section Notes 01/23/2025 Degeneration of inte rvertebral disc of lumbosacral region with discogenic back pain and lower extremity pain (ICD-10 - M51.372) 1. Prior L5-S1 laminectomy 2. L2-3 lateral spondylolisthesis 3. Levoscoliosis 4. L1-S1 degenerative disc disease/stenosis/neuroforaminal stenosis/radiculopathy 03/31/2025Spondylolisthesis, lumbar region (ICD-10 - M43.16)03/31/2025Spinal stenosis, lumbosacral region (ICD-10 - M48.07)01/23/2025Spondylolisthesis, lumbar region (ICD-10 - M43.16) 1. Prior L5-S1 laminectomy 2. L2-3 lateral spondylolisthesis 3. Levoscoliosis 4. L1-S1 degenerative disc disease/stenosis/neuroforaminal stenosis/radiculopathy 01/23/2025Spinal stenosis, lumbosacral region (ICD-10 - M48.07) 1. Prior L5-S1 laminectomy 2. L2-3 lateral spondylolisthesis 3. Levoscoliosis 4. L1-S1 degenerative disc disease/stenosis/neuroforaminal stenosis/radiculopathy 03/31/2025Degeneration of intervertebral disc of lumbosacral region with discogenic back pain and lower extremity pain (ICD-10 - M51.372)01/23/2025Other form of scoliosis of lumbar spine (ICD-10 - M41.86) 1. Prior L5-S1 laminectomy 2. L2-3 lateral spondylolisthesis 3. Levoscoliosis 4. L1-S1 degenerative disc disease/stenosis/neuroforaminal stenosis/radiculopathy 03/31/2025Other form of scoliosis of lumbar spine (ICD-10 - M41.86)01/23/2025 Other Plan established by Dr. Cano. Patient evaluated by myself and Dr. Cano today. We did review patient's MRI with her and discussed recommendation of L1-5 decompression and fusion with TLIF atL4-5. It was discussed with patient that fusion is necessary due to the fact that total facetecetomy's would need to be performed In order to free up the foraminal stenosis. This would lead to instabi lity requiring a fusion. Surgical risks and benefits were discussed. Risks include, but are not limited to paralysis, infection, dural tear, nerve root injury, nonunion, etc. Patient would like to proceed with surgical intervention as she has done extensive conservative management of her pain without relief that is now interfering with her activities of daily living. Patient will need medical clearance and we will see her back in the office at a date prior to surgery. The patient is very much in agreement with the treatment and/or diagnostic plan set forth and all questions were answered to the patient's satisfaction. Thanks once again. If we can be of further service to your patients with disorders of the spine, cervical, thoracic, or lumbar, please do not hesitate to contact Dr. Cano. Best regards, 1. Prior L5-S1 laminectomy 2. L2-3 lateral spondylolisthesis 3. Levoscoliosis 4. L1-S1 degenerative disc disease/stenosis/neuroforaminal stenosis/radiculopathy Plan Of Treatment Pending Test Test Name Order Date Chest 2 views - [id number] 03/31/2025 CBC 03/31/2025 PT/PTT 03/31/2025 BMP 03/31/2025 Surgery Scheduling 03/31/2025 MRSA (Bilateral Nares) PCR 03/31/2025 EKG 03/31/2025 Insurance Providers Payer Name Payer Address Payer Phone Subscriber Number Group Number Insured Name Patient Relationship to Insured Coverage Start Date Coverage End Date Medicare [employer] [address] [place] [phone] [id number] [facility] [place] Self - patient is the insured 5 Medical (General) History Medical History History ICD Code High Blood Pressure Lung DiseaseBronchitisStomach ulcersGastric RefluxIrritable bowel syndromeStroke OsteoporosisOsteoarthritisSurgical History Surgery Date(Month/Year) Lower back NECK x 2
--- OUTSIDE RECORDS SUMMARY | 2025-09-08 09:14 | XMS_ITS | CCD ---
Author Organization [facility] Care Team Providers Care Tax Specialist Name Role Phone PHYSICIAN, DEFAULT Admitting Unavailable [...] Unavailable HOY ., DR BLANKENSHIP Admitting Unavailable [place], DR GODWIN Cardona Consulting Unavailable HOY ., [...] Attending Provider Krzysztof Thompson MD Attending Provider [phone] Hoy, Krzysztof M Primary Care Unavailable [...] of OnsetReaction(s) Facility (17 sources)Morphine; Translations: [MORPHINE]Drug Cnpkfdt59-22-6860PqxnnjriOjx [facility] Repository (7 sources)NSAIDs; Translations: [NSAIDS (NON-STEROIDAL ANTI-INFLAMMATORY DRUG)] Drug allergy (disorder)03-88-4987GC BleedingThe [facility] (1 source)PenicillinDrug Jhuzefx15-71-9341Lgw [facility] Repository (1 source)predniSONEDrug Ckdkviy70-88-8268Fnz [facility] Repository (2 sources)Iodinated Contrast- Oral and IV DyeDrug allergy (disorder)11-11-2014 [facility] Repository (20 sources)Penicillins; Translations: [PENICILLINS]Propensity to adverse reactions to drug (disorder)56-85-2979MqkhNyicshehckPremier [facility] (20 sources)IODINATED CONTRAST MEDIA; Translations: [IODINATED CONTRAST MEDIA] Propensity to adverse reactions to drug (disorder)94-81-7417Usxswpnibim, Other (See Comments)[facility] Repository (1 source)levoFLOXacinDrug Mazyqlx74-31-5872Ype [facility] Repository (1 source)meloxicamDrug Mjfuyjr97-95-8598Wpb [facility] Repository (12 sources)NSAIDS (Non-Steroidal Anti-Inflamma; Translations: [NSAIDS (Non- Steroidal Anti-Inflamma]Propensity to adverse iaktuguus70-79-7184JotqsepLicking Memorial HospitalComment on above:pt has stomach ulcer (20 sources)MorphineDrug Xpyjkaa47-20-9497Cffgnj And Vomiting, VomitingNOMS Healthcare (10 sources)Non-steroidal anti-inflammatory agentPropensity to adverse reactions 46-49-7307Ynpq, GI BleedingNOMS Healthcare (9 sources)Contrast media; Translations: [DYE]Propensity to adverse reactions to drug (disorder)27-37-4780RlkztlwbFdfGadlge Repository (9 sources)MORPHOLINE ANALOGUES; Translations: [MORPHOLINE ANALOGUES]Propensity to adverse reactions to drug (disorder)77-56-8584GhjagrsyRyiJsmimn Repository (3 sources)Non-steroidal anti-inflammatory agentPropensity to adverse reactions to tfwa79-16-4917NS [facility]edingC[facility] (1 source)MorphineDrug Nzqusxb44-19-8596SzbmpvnjoSouthern [facility] Center Rep[facility] Medications Current Medications MedicationDrug Class(es)DatesSig (Normalized)Sig (Original)acetaminophen 500 mg oral tablet (20 sources)take 1 tablet by mouth every six hours as needed for pain acetaminophen (TYLENOL) 500 mg tablet Take 1 tablet (500 mg total) by mouth every 6 (six) hours as needed for pain. Activeaspirin 81 mg delayed release oral tablet (20 sources)Platelet Aggregation Inhibitor, Nonsteroidal Anti-inflammatory Drug Start: 89-24-5178btgs 1 tablet by mouth in the morningaspirin 81 mg Take 1 tablet (81 mg total) by mouth in the morning. 02/19/2024 Activeclopidogrel 75 mg oral tablet (20 sources)P2Y12 Platelet InhibitorStart: 52-86-2448jzxg 1 tablet by mouth in the morningclopidogreL (PLAVIX) 75 mg tablet Take 1 tablet (75 mg total) by mouth in the morning. 01/28/2024 DkgylvFwngzzuvjsg-Bckjdbbxb-Mvudboqn (8 sources)Start: 91-78-0535Oipiixpysgk-Umeclidin-Vilanter (Trelegy Ellipta) 200-62.5-25 mcg blister with device Active 1 INH INHALATION Daily February 19, 2025 12:00am Complies with drug therapyStart: 90-85-6124kfbixmtamz 100 mg oral capsule (2 sources)Anti-epileptic AgentStart: 08-11-2024 End: 15-98-5706ebgn 1 capsule by mouth in the morninggabapentin (Neurontin) 100 MG capsule Indications: Left hand pain Take 1 capsule (100 mg) by mouth in the morning and 1 capsule (100 mg) before bedtime. 60 capsule 2 08/11/2024 11/09/2024 Activemetoprolol tartrate 50 mg oral tablet (20 sources)beta-Adrenergic BlockerStart: 11-19-2541ubrx 1 tablet by mouth in the morningmetoprolol tartrate (LOPRESSOR) 50 mg tablet Take 1 tablet (50 mg total) by mouth in the morning. 03/27/2024 ActiveStart: 27-81-1794pcxwnnnyxt tartrate (Lopressor) 25 MG tablet 03/27/2024 Activepantoprazole 40 mg delayed release oral tablet (20 sources)Proton Pump InhibitorStart: 01-28-2024 End: 52-42-4906urpfzq calcitonin 200 unt/actuat nasal spray (16 sources)CalcitoninStart: 06-17-2024 End: 40-29-7200iqki 1 spray(s) nasal route in the morningcalcitonin, salmon, (MIACALCIN) 200 unit/actuation nasal spray Administer 1 spray into alternating n ostrils in the morning. 07/15/2024 08/14/2024 Activesucralfate 1000 mg oral tablet (20 sources)Aluminum ComplexStart: 30-44-2260xfdi 1 tablet by mouth four times dailysucralfate (Carafate) 1 g tablet TAKE 1 TABLET BY MOUTH ON AN EMPTY STOMACH FOUR TIMES DAILY 03/18/2024 ActiveStart: 70-13-9766vhau 1 tablet by mouth twice dailyStart: 01-28-2024 End: 02-93-0856ztzl 1 tablet by mouth four times dailySucralfate 1 gram tablet Discontinued 1 GM PO Four times daily January 28, 2024 12:00am February 19, 2024 9:15amtiZANidine 2 mg oral capsule (8 sources)Central alpha-2 Adrenergic AgonistStart: 91-83-1354rdce 1 capsule by mouth twice daily as needed Completed/Discontinued Medications MedicationDrug Class(es)DatesSig (Normalized)Sig (Original)atorvastatin 20 mg oral tablet (20 sources)HMG-CoA Reductase InhibitorStart: 01-28-2024 End: 46-85-5422rlpq 1 tablet by mouth once daily at bedtimeAtorvastatin 20 mg tablet Discontinued 20 MG PO Daily at bedtime January 28, 2024 12:00am February 19, 2025 2:58pm End: 62-48-6467qdpm 1 tablet by mouth in the morningatorvastatin (LIPITOR) 40 mg tablet Take 1 tablet (40 mg total) by mouth in the morning. 12/25/2024 Discontinued (Discontinued by another clinician)cetirizine hydrochloride 10 mg oral tablet (11 sources)Histamine-1 Receptor AntagonistStart: 01-28-2024 End: 96-30-2051jkau 1 tablet by mouth once daily in the morningCetirizine 10 mg tablet Discontinued 10 MG PO Every morning January 28, 2024 12:00am February 19, 2024 9:13am1 ml denosumab 60 mg/ml prefilled syringe (1 source)RANK Ligand Inhibitor End: 57-71-1531xiwkpa 60 mg by subcutaneous injection oncedenosumab (PROLIA) 60 mg/mL syringe injection Inject 60 mg under the skin once. 07/16/2024 Discontin ued (Discontinued by another clinician)lactulose 667 mg/ml oral solution (20 sources)Osmotic LaxativeStart: 02-19-2024 End: 28-65-3165balc 1 mL by mouth twice dailyLactulose 10 gram/15 mL solution Discontinued 30 ML PO Twice daily 1800 30 February 19, 2024 9:26am August 12, 2024 12:13pmStart: 01-28-2024 End: 80-48-6234ajes 1 mL by mouth once daily in the morningLactulose 10 gram/15 mL solution Discontinued 15 ML PO Every morning January 28, 2024 12:00am February 9:15amlidocaine 0.05 mg/mg medicated patch (1 source)Antiarrhythmic, Amide Local AnestheticStart: 06-13-2024 End: 57-32-9480bskid 1 dose transdermal route once daily, then apply 1 dose transdermal route every twelve hourslidocaine (LIDODERM) 5 % Indications: Left hip pain Place 1 patch on the skin daily. Remove & Discard patch within 12 hours or as directed by 30 patch 06/13/2024 07/16/2024 Discontinued (Patient Never Started This Medication)linaclotide 0.145 mg oral capsule (16 sources)Guanylate Cyclase-C AgonistStart: 08-13-2024 End: 03-52-5926ltif 1 capsule by mouth once dailyLinaclotide (Linzess) 145 mcg capsule Discontinued 145 MCG PO Daily August 13, 2024 1:00amJun2024 2:58pmStart: 08-12-2024 End: 62-21-0890qxxv 1 capsule by mouth once dailyLinaclotide (Linzess) 72 mcg capsule Discontinued 72 MCG PO Daily August 12, 2024 1:00am August 13, 2024 5:40pmrosuvastatin calcium 20 mg oral tablet (1 source)HMG-CoA Reductase Inhibitor End: 01-28-7618uqcr 1 tablet by mouth in the morningrosuvastatin (CRESTOR) 20 mg tablet Take 1 tablet (20 mg total) by mouth in the morning. 07/16/2024 Discontinued (Discontinued by another clinician)Sod Picosulf-Mag Ox-Citric Ac (10 sources)Start: 02-19-2024 End: 93-74-4435yleg 1 dose by mouth once daily in the eveningSod Picosulf-Mag Ox-Citric Ac (Clenpiq) 10 mg-3.5 gram- 12 gram/175 mL solution Discontinued 175 MLPO Daily 175 February 19, 2024 12:00am August 12, 2024 12:12pm take first dose at 3:00 pm the day before colonoscopy, take second dose at 9:00 pm the day before colonoscopy.Start: 54-81-5196mdah 1 dose by mouth once daily in [...] abdominal pain; Translations: [GENERALIZED ABDOMINAL PAIN] Onset: 15-54-1942UkimwfqdTeiln and unspecified renal failure (1 source)Acute kidney failure, unspecified; Translations: [ACUTE KIDNEY FAILURE UNSPECIFIED]Onset: 96-06-3687AbdjlqhoTndir cerebrovascular disease (3 sources)Cerebral infarction, unspecified; Translations: [Cerebral infarction due to unspecified occlusion or stenosis of left carotid arteries]Onset: 99-60-2293HwzxuotTohlpbkm reactions (1 source)Radiographic dye allergy status; Translations: [RADIOGRAPHIC DYE ALLERGY STATUS]Onset: 54-30-6532SdcbyjslBnmpsmpi of urinary tract (1 source)Personal history of urinary calculi; Translations: [PERSONAL HISTORY OF URINARY CALCULI]Onset: 57-84-9108GlwoisvkXvcgmwi kidney disease (1 source)Chronic kidney disease, unspecified; Translations: [CHRONIC KIDNEY DISEASE UNSPECIFIED]Onset: 70-27-8041XwdzxgxMmndtek obstructive pulmonary disease and bronchiectasis (4 sources)Chronic obstructive pulmonary disease, unspecified; Translations: [COPD UNSPECIFIED]Onset: 88-53-6363VyhwzbfGhghrjonwt heart failure; nonhypertensive (20 sources)Unspecified diastolic (congestive) heart failure; Translations: [Acute combined systolic (congestive) and diastolic (congestive) heart failure] Onset: 39-12-5996XytokdtCqvqeitn atherosclerosis and other heart disease (15 sources)Coronary atherosclerosis; Translations: [Atherosclerotic heart disease of lummi coronary artery without angina pectoris]Onset: 02-11-2010 96-79-1704SoqobzsXkmxavmlnh and other anemia (1 source)Anemia, unspecified; Translations: [ANEMIA UNSPECIFIED]Onset: 93-14-8016VhfspjhyTjsaopeblc and other anemia (1 source)Iron deficiency anemia, unspecified; Translations: [IRON DEFICIENCY ANEMIA UNSPECIFIED]Onset: 78-05-9957CnthmxgcJszuzvjr mellitus without complication (16 sources)Type 2 diabetes mellitus without complications; Translations: [Diabetes mellitus without complication]Onset: 602082-65-5509Fvncmov Diabetes mellitus without complication (2 sources)Prediabetes; Translations: [Other abnormal glucose]Onset: 11-14-2022 EpisodicDisorders of lipid metabolism (17 sources)Pure hypercholesterolemia, unspecified; Translations: [Hyperlipidemia, unspecified]Onset: 854415-96-2761WlytrghZtdbtscnobtirz and diverticulitis (20 sources)Diverticulum of duodenum; Translations: [Diverticulosis of small intestine without perforation or abscess without bleeding]Onset: 09-12-2018 14-97-5260ZebskjlGgqcnzygye disorders (20 sources)Gastro-esophageal reflux disease without esophagitis; Translations: [Gastroesophageal reflux disease]Onset: 436750-93-5015VjllmcePrmcobhvx hypertension (6 sources)Essential (primary) hypertension; Translations: [ESSENTIAL (PRIMARY) HYPERTENSION]Onset: 25-44-6838XlbqdtgMugcf and electrolyte disorders (2 sources)Dehydration; Translations: [Hyperkalemia]Onset: 58-73-9777Uydceikb Gastroduodenal ulcer (except hemorrhage) (6 sources)Gastric ulcer; Translations: [Gastric ulcer, unspecified as acute or chronic, without hemorrhage orperforation]17-07-7034XhpzojgIrbivyajrthgy symptoms and ill-defined conditions (1 source)Personal history of urinary (tract) infections; Translations: [PERS HX URINARY TRACT INFECTIONS]Onset: 26-50-3819DuqhwnoaKnvce valve disorders (1 source)Rheumatic tricuspid insufficiency; Translations: [RHEUMATIC TRICUSPID INSUFFICIENCY]Onset: 92-26-2081OmdlxmvOnpvndzacyfn with complications and secondary hypertension (5 sources)Hypertensive heart disease with heart failure; Translations: [Hypertensive chronic kidney disease with stage 1 through stage 4 chronic kidney disease, or unspecified chronic kidney disease]Onset: 00-15-6903Dokfyeh Intestinal obstruction without hernia (3 sources)Stricture of intestine; Translations: [Other intestinal obstruction unspecified as to partial versus complete obstruction]Onset: 06-23-2025 56-50-8614LueyerzuWrqdo disorders and dislocations; trauma-related (15 sources)Derangement of right knee; Translations: [Unspecified internal derangement of right knee]Onset: 618567-63-7748ZqbjppgKiwrbwp and fatigue (1 source)Chronic fatigue, unspecified; Translations: [CHRONIC FATIGUE UNSPECIFIED]Onset: 26-74-7729ApfdujvJrcldsl and fatigue (4 sources)Other fatigue; Translations: [OTHER FATIGUE]Onset: 28-34-7175Phxovcur Nonspecific chest pain (5 sources)Chest pain, unspecified; Translations: [CHEST PAIN UNSPECIFIED]Onset: 35-62-6082JjgsrnjnQhxzrqkhudw deficiencies (1 source)Vitamin D deficiency, unspecified; Translations: [VITAMIN D DEFICIENCY UNSPECIFIED]Onset: 68-96-0881QfrdknpUqzskxpis or stenosis of precerebral arteries (5 sources)Occlusion and stenosis of unspecified carotid artery; Translations: [Occlusion and stenosis of bilateral carotid arteries]Onset: 93-91-6382Rubrtbi Osteoarthritis (18 sources)Unspecified osteoarthritis, unspecified site; Translations: [Osteoarthritis of left knee joint]Onset: hronic Osteoporosis (20 sources)Age-related osteoporosis without current pathological fracture; Translations: [Osteoporosis]Onset: 544833-11-4572XlnffptAmeyk acquired deformities (20 sources)Lumbar spondylolisthesis; Translations: [Spondylolisthesis, lumbar region]97-17-8268UicpgsatVpobk aftercare (2 sources)FCI (current) use of aspirin; Translations: [TRAVEL REGISTERED NURSE NICU (CURRENT) USE OF ASPIRIN]Onset: 72-42-5242CrmdztdjNlqzm aftercare (1 source)Other fdc (current) drug therapy; Translations: [OTH FDC CURRENT DRUG THERAPY]Onset: 33-18-4549HowqaeoqKovns circulatory disease (1 source)Personal history of transient ischemic attack (TIA), and cerebral infarction without residual deficits; Translations: [PERS HX TIA AND CI NO RESID DEFICIT]Onset: 19-59-9927VqjszqmePxwiv connective tissue disease (4 sources)Pain in left foot; Translations: [PAIN IN LEFT FOOT]Onset: 01-15-2023 EpisodicOther connective tissue disease (1 source)Other specified soft tissue disorders; Translations: [OTHER SPEC SOFT TISSUE DISORDERS]Onset: 09-95-6842DfxnqhlpFtzmt connective tissue disease (1 source)Fibromyalgia; Translations: [FIBROMYALGIA]Onset: 87-35-8623Feyuimcj Other connective tissue disease (2 sources)Pain of left hand; Translations: [Pain in left hand]08-11-2024 EpisodicOther connective tissue disease (20 sources)Muscle pain; Translations: [Myalgia, unspecified site]03-11-2025 EpisodicOther fractures (4 sources)Fracture of multiple pubic rami; Translations: [Other specified fracture of right pubis, initial encounter for closed fracture]06-17-2024 EpisodicOther gastrointestinal disorders (10 sources)Irritable bowel syndrome; Translations: [Irritable bowel syndrome without diarrhea]70-02-8917LbdaszbLmdpp gastrointestinal disorders (2 sources)Irritable bowel syndrome without diarrhea; Translations: [Irritable bowel syndrome]53-78-4396IujbuzcKfewa gastrointestinal disorders (8 sources)Irritable bowel syndrome characterized by constipation; Translations: [Irritable bowel syndrome with constipation]82-91-2752TdkwtffFiptc gastrointestinal disorders (2 sources)Incontinence of feces; Translations: [Full incontinence of feces] 35-69-9422MavqirsgVzxiy gastrointestinal disorders (1 source)Full incontinence of feces; Translations: [Full incontinence of feces] Onset: 22-49-8371BhfohdizZvoqa gastrointestinal disorders (1 source)EncopresisOnset: 03-74-8896XvkcmbwnEqjbe hematologic conditions (4 sources)Other specified abnormalities of plasma proteins; Translations: [OTH SPEC ABNORM PLASMA PROTEINS]Onset: 58-25-8202KuwhkmpcGtjlr hereditary and degenerative nervous system conditions (1 source)Restless legs syndrome; Translations: [RESTLESS LEGS SYNDROME]Onset: 03-74-1345JpimphxOaukh lower respiratory disease (6 sources)Shortness of breath; Translations: [SHORTNESS OF BREATH]Onset: 96-52-7524YgxydipaCdpib lower respiratory disease (3 sources)Dyspnea, unspecified; Translations: [Dyspnea, unspecified]Onset: 25-55-3227GuwmycetBtqht lower respiratory disease (1 source)Personal history of pneumonia (recurrent); Translations: [PERSONAL HX OF PNEUMONIA RECURRENT]Onset: 61-61-3494YwabpmvbSnjxp nervous system disorders (3 sources)Aphasia; Translations: [APHASIA]Onset: 44-83-9439UaepmgeCwktr nervous system disorders (15 sources)Disorder of autonomic nervous system; Translations: [Disorder of the autonomic nervous system, unspecified]Onset: 045210-17-2580CdpunifEnlyt nervous system disorders (20 sources)Chronic pain; Translations: [Other chronic pain]83-82-1918Oktwsho Other nervous system disorders (1 source)Ataxia, unspecified; Translations: [ATAXIA UNSPECIFIED]Onset: 49-45-6058UknekxqgQkluv nervous system disorders (3 sources)Paresthesia; Translations: [Paresthesia of skin]23-00-6358Uhkipjvx Other non-traumatic joint disorders (1 source)Pain in left ankle and joints of left foot; Translations: [PAIN IN LEFT ANKLE]Onset: 98-94-5965FzvuxiutXijec non-traumatic joint disorders (7 sources)Hip pain; Translations: [Pain in right hip]Onset: 06-13-2024 28-45-6403TtjsmgkfLkdrz non-traumatic joint disorders (1 source)Pain in left hip; Translations: [Pain in left hip]Onset: 06-13-2024 EpisodicOther non-traumatic joint disorders (13 sources)Pain in right shoulder; Translations: [Right shoulder pain]Onset: 270156-56-7668DujqcbhjPksww screening for suspected conditions (not mental disorders or infectious disease) (18 sources)Abnormal result of other cardiovascular function study; Translations: [Other specified abnormal findings of blood chemistry]Onset: 449733-75-8558TfllzlleXeyzf skin disorders (4 sources)Nonscarring hair loss, unspecified; Translations: [NONSCARRING HAIR LOSS UNSPECIFIED]Onset: 86-45-4137WmhunhtoHwkgd upper respiratory infections (1 source)Acute sinusitis, unspecified; Translations: [ACUTE SINUSITIS UNSPECIFIED]Onset: 92-27-9013MgzxzyzcTdzmbrytbx disorders (not diabetes) (20 sources)Other chronic pancreatitis; Translations: [Chronic pancreatitis] Onset: 352842-08-5189OmhphxqPuaqtudlrjnc fracture (4 sources)Stress fracture of sacrum; Translations: [Pathological fracture, other site, initial encounter for fracture]62-92-6656GiawzcypJrbmafel codes; unclassified (1 source)Acquired absence of both cervix and uterus; Translations: [ACQUIRED ABSENCE BOTH CERVIX AND UTERUS]Onset: 91-10-1481QaqscjclDzacparf codes; unclassified (1 source)Personal history of other specified conditions; Translations: [PERSONAL HISTORY OTH SPEC CONDITION]Onset: 29-50-2430OimqvfwiZycyzxdn codes; unclassified (5 sources)Edema, unspecified; Translations: [EDEMA UNSPECIFIED]Onset: 92-73-3723EafirmqxKamgbmhp codes; unclassified (6 sources)Postmenopausal state; Translations: [Asymptomatic menopausal state] 03-72-4282XlsnvtpcKzfaturoapx; intervertebral disc disorders; other back problems (20 sources)Degeneration of lumbar intervertebral disc; Translations: [Degeneration of lumbar intervertebral disc]Onset: hronic Spondylosis; intervertebral disc disorders; other back problems (20 sources)Cervical radiculopathy; Translations: [Radiculopathy, cervical region]Onset: 504440-08-8355JklegtmoHoelmwmcwqqo (2 sources)ABN STRESSOnset: 32-06-4026Dpmocxjolrym (1 source)CHRN KIDNEY DISEASE STG 3 UNSP; Translations: [CHRN KIDNEY DISEASE STG 3 UNSP]Onset: 93-56-7281Dlopumikhopg (1 source)CONTACT W/AND (SUSP) EXPOS COVID-19; Translations: [CONTACT W/AND (SUSP) EXPOS COVID-19]Onset: 26-14-6795Pnltuzsifelj (1 source)COUGH, UNSPECIFIED; Translations: [COUGH, UNSPECIFIED]Onset: 36-39-7626Fltkgillngii (1 source)PERSONAL HISTORY OF COVID-19; Translations: [PERSONAL HISTORY OF COVID-19]Onset: 24-53-4938Mfcomkelusbh (1 source)PAIN RT HIPOnset: 76-36-6403Oqatnsofksox (1 source)M54.6 - Pain in thoracic spineUnclassified (4 sources)R93.7 - Abnormal findings on diagnostic imaging of other parts of musculoskeletal systemViral infection (1 source)COVID-19; Translations: [COVID-19]Onset: 09-30-2022 Past or Other Problems Problem ClassificationProblemDateDocumented DateEpisodic/ChronicAbdominal hernia (16 sources)Diaphragmatic hernia without obstruction or gangrene; Translations: [Hiatal hernia]Onset: 216941-22-4651FgmspetdIhwxgpmvcrmhal ulcer (except hemorrhage) (2 sources)H/O: gastric ulcer; Translations: [Personal history of peptic ulcer disease]Onset: 274905-49-9689PpodghgqMraufloixxfwtzhe hemorrhage (10 sources)Gastrointestinal hemorrhage; Translations: [Hemorrhage of anus and rectum]Onset: 464987-24-7009EniaipstQgwfou and vomiting (2 sources)Vomiting; Translations: [Vomiting, unspecified]Onset: 07-16-2024 24-21-3135EuzrwqzbKntxo bone disease and musculoskeletal deformities (15 sources)Costal chondritis; Translations: [Chondrocostal junction syndrome [Tietze]]Onset: 957694-29-2714XlpkykzlXaykr gastrointestinal disorders (4 sources)Constipation, unspecified; Translations: [CONSTIPATION UNSPECIFIED] Onset: 22-09-6988YcpnicfcZbzly gastrointestinal disorders (1 source)Dysphagia; Translations: [Dysphagia, unspecified]06-72-9923Hhmuhvcn Other gastrointestinal disorders (1 source)Dysphagia, unspecified; Translations: [Dysphagia, unspecified]Onset: 60-44-2762DftbpozqYblyu gastrointestinal disorders (1 source)HeartburnOnset: 79-37-0661JnepjgicGxsdq nervous system disorders (4 sources)Dysarthria and anarthria; Translations: [DYSARTHRIA AND ANARTHRIA] Onset: 45-71-9442Vobogrvp Results Test NameValueInterpretationReference RangeFacilityUrine Cultureon 05-13-2025 Bacteria identified Cx Nom (U)ORGANISM: Escherichia coli (O:ESCCOL) [place] Count 75,000 Aerobic RAIZA Charge (NMIC56) SUSCEPTIBILITY [...] RESISTANT TO ALL B-LACTAM DRUGS. PERFORMED BY: [facility] [address] [place] [address] PATHOLOGIST JOB PRESS OPERATOR ARMINDA JUAN M.D.[facility] Physician GroupComment on above: Performed By: #### CUU #### [facility] [address] [place] [address] USAX-ray reportOrdered By: Elian Luna on 33-99-5900Teero reportST. [facility] [address] [place] [address] XRay Report Signed Patient: Sheila Mac MR#: [id number] : 1950 Acct:[id number] Age/Sex: 74 / F ADM Date: 5 Loc: [facility] Room: Type: [facility] Attending Dr: Rickie Saucedo MD Copies to: [...] 6:13 PM Dictation Location: RADIO-PC-20 Transcribed By: [facility] 04/02/251812 Dictated By: Elian Luna DO 04/02/251811 Signed By: 04/02/251812 [facility] CenterXR shoulder RT min 2V*on 92-36-5144WK shoulder RT min 2V*[facility] [address] [place] [address] XRay Report Signed Patient: Sheila Mac MR#: [id number] : 1950 Acct:[id number] Age/Sex: 74 / F ADM Date: 04/02/25 [...] 6:13 PM Dictation Location: RADIO-PC-20 Transcribed By: [facility] 04/02/251812 Dictated By: Elian Luna DO 04/02/251811 Signed By: 04/02/[address] [place] [address] Physician GroupX-ray reportOrdered By: Ling Fields on 42-12-2710Noufn reportST. AN[facility]ON[facility] [address] [place] [address] XRay Report Signed Patient: Sheila Mac MR#: [id number] : 1950 Acct:[id number] Age/Sex: 74 / F ADM Date: 5 [facility] Room: Type: REG CLI Attending Dr: Rickie [...] Fields M.D. 03/11/2025 12:01 PM Dictation Location: [place] [address] Transcribed By: [facility] 03/11/25 1201 Dictated By: Ling Fields MD 03/11/25 1158 Signed By: 03/11/25 1201 [facility] Work Phone: XR thoracic spine 2Von 99-70-8483ZL thoracic spine [address]V [facility] [address] [place] [address] XRay Report Signed Patient: Sheila Mac MR#: [id number] : 1950 Acct:[id number] Age/Sex: 74 / F ADM Date: 03/11/25 Loc: [facility] Room: Type: [facility] Attending Dr: Rickie Saucedo MD Copies to: [...] Fields M.D. 03/11/2025 12:01 PM Dictation Location: [facility] Transcribed By: [facility] 03/11/25 1201 Dictated By: Ling Fields MD 03/11/25 1158 Signed By: 03/11/25 1201[facility] Physician GroupXR cerv spine AP/LAT/FLX/EXTon 03-79-2050MG cerv spine AP/LAT/FLX/[facility] [place] [address] [place] [address] XRay Report Signed Patient: Sheila Mac MR#: [id number] 1859 : 1950 Acct:[id number] Age/Sex: 74 / F ADM Date: 02/26/25 Loc: [place] Room: Type: [facility] Attending Dr: Vasyl Chicas [...] Luna M.D. 02/26/2025 12:52 PM Dictation Location: [facility] Transcribed By: LAVON 02/26/25 1252 Dictated By: Elian Luna DO 02/26/25 1249 Signed By: 02/26/25 1252[facility]ician GroupXR lumbar spine 6V w bendingon 27-53-7141DQ lumbar spine 6V w bendingST. [facility] [place] [address] [place] [address] XRay Report Signed Patient: Sheila Mac MR#: [id number] 1859 : 1950 Acct:[id number] Age/Sex: 74 / F ADM Date: 02/26/25 Loc: [place] Room: Type: [facility] Attending Dr: Vasyl Chicas [...] Luna M.D. 02/26/2025 2:14 PM Dictation Location: [place] [address] Transcribed By: LAVON 02/26/25 1414 Dictated By: Elian Luna DO 02/26/25 1411 Signed By: 02/26/25 1414[facility] Physician GroupSurgical Pathologyon 07-28-[address] [facility] Hospitalca [facility] Medical CenterComment on above:Result Comment: [facility] [address] [place] [address] Surgical Pathology Consultation Patient Name:SHEILA MCA ADOB:1950 (Age: 74)Gender:FTaken:07/28/2024eported:07/31/2024hysician(s):Nidia White MD ([phone])Copy To: Rec. #:[id number]: #[id number] Final Pathologic Diagnosis 1. Duodenum biopsy first portion: Duodenal mucosa with no significant histopathologic changes. No active inflammation, celiac disease, parasites, granuloma or atypia. 2. Antrum biopsy: Gastric antral mucosa with no significant histopathologic changes. No intestinal metaplasia or dysplasia. No Helicobacter pylori organisms are seen on routine sections. Report Electronically Signed Out wak/07/31/2024Rodriguez Vargas MD [place] [address], License number: [id number]. Clinical History Vomiting, gastroesophageal reflux, dysphagia Gross Description 1. Received in formalin labeled ASLINGER, #1: Duodenum is a single hathaway bit of soft tissue, 0.2 cmin greatest dimension. Filtered and submitted in a single cassette. (1, ns, [id number], m7) MG 2. Received in formalin labeled ASLINGER, #2: Antrum is a single hathaway bit of soft tissue, 0.3 cm in greatest dimension. Filtered and submitted in a single cassette. (1, ns, [id number], m7) MG [facility] [place]/07/28/2024GR Specimen(s) Received 1: Duodenum biopsy first portion 2: Antrum biopsy Fee Codes(s): 1; 67722 2; 36370HJZ 1 Extremeityon 72-59-4746J1 radiculopathy on the left, moderateMer[facility] HealthcareNVC 5-6 Nerveson 24-79-7840E6 radiculopathy on the left, moderateMercy McCune[facility]Brooks Hospital HealthcareXR HIP LT 2-3 VIEWS W OR WO PELVISon 37-78-3289NH HIP LT 2-3 VIEWS W OR WO [...] by Rod Muller MD on 06/13/2024 10:24 [facility] HospitalXR SPINE LUMBAR 2 OR 3 VWSon 98-96-0657AU SPINE LUMBAR 2 OR 3 VWSXR SPINE [...] by Rickie Gonzales MD on 06/13/2024 10:20 [facility] HospitalMR HIP RIGHT WO IV CONTRASTon 01-50-1631BK HIP RIGHT WO IV CONTRASTEXAM: MR HIP [...] of the right hip Hemal Sheth D.O.[facility] HealthcareRadiology Study observation (narrative)[facility] HealthcareColonoscopyOrdered By: Kera George on 03-26-2024 [facility]US AYESHA DOP LEG LTon 78-26-8040N[place] AYESHA DOP LEG LT EXAMINATION: US AYESHA [...] Electronically authenticated by: DANIEL PINEDA Date: 2023-01-15 08:25[facility] HospitalXR ANKLE LT MIN 3 Von 26-06-4003RH ANKLE LT MIN 3 VEXAM: XR FOOT [...] Electronically authenticated by: GONZALEZ PATEL Date: 2023-01-15 07:[address] [place], [place] [address]VITAMIN B1 (THIAMINE)on 02-68-0733Hzl. B1, Whole Ljhfp549.1 nmol/YOzayvb98.5-200.0The [facility] Bucyrus HospitalComment on above:Performed By: #### CBC #### [facility] [address] [place] [address] Dr. Ekta Vaughan 41-75-2414Firbowlpuat peptide B (Bld) [Mass/Vol]980.0 pg/mL Critically high<=900.0The [facility] HospitalComment on above:Performed By: #### CVDTBH #### [facility] [address] [place] [address] Dr. Ekta Agarwal AUTO DIFFon 83-52-7943EOBA #0.1 103/ulNormal0.0-0.1[facility] South CampusComment on above:Performed By: #### CMP #### [facility] [address] [place] [address] Dr. Ekta FunkBasophils/100 WBC (Bld)1.0 %Normal0.2-2.0The [facility] Comment on above:Performed By: #### CMP #### [facility] [address] [place] [address] Dr. Ekta Anthony #0.4 103/ulNormal0.0-0.7The [facility] HospitalComment on above: Performed By: #### CMP #### [facility] [address] [place] [address] Dr. Ekta Abebeosinophils/100 WBC (Bld)3.7 %Normal0.9-7.0[facility] Comment on above:Performed By: #### CMP #### [facility] [address] [place] [address] Dr. Ekta Abeberythrocyte distribution width (RBC) [Ratio]13.2 %Osdpmt22.0-15.0 [facility] CampusComment on above:Performed By: #### CMP #### [facility] [address] [place] [address] Dr. Ekta FunkHematocrit (Bld) [Volume fraction]35.1 %Critically low36.0-48.0 [facility] CampusComment on above:Performed By: #### CMP #### [facility] [address] [place] [address] Dr. Ekta FunkHemoglobin (Bld) [Mass/Vol]11.3 g/dLCritically low12.0-16.0The [facility] HospitalComment on above:Performed By: #### CMP #### [facility] [address] [place] [address] Dr. Ekta Olivares #0.04 10e3/ulCritically high0.00-0.03The [facility] Comment on above:Performed By: #### CMP #### [facility] [address] [place] [address] Dr. Ekta Olivares %0.4 %Normal0.0-0.5ThParkview Health Bryan HospitalComment on above: Performed By: #### CMP #### [facility] [address] [place] [address] Dr. Ekta LundbergH #2.0 103/ulNormal1.2-3.8The [facility] HospitalComment on above:Performed By: #### CMP #### [facility] [address] [place] [address] Dr. Ekta Nettlesmphocytes/100 WBC (Bld)20.8 %Jjpjtv12.5-60.0The [facility] HospitalComment on above:Performed By: #### CMP #### [facility] [address] [place] [address] Dr. Ekta Beckham DIFF REQNONormalThe [facility] HospitalComment on above: Performed By: #### CMP #### [facility] [address] [place] [address] Dr. Ekta Oconnor (RBC) [Entitic mass]32.3 qbFlnrkp21.7-34.0The [facility] HospitalComment on above:Performed By: #### CMP #### [facility] [address] [place] [address] Dr. Ekta Oconnor (RBC) [Mass/Vol]32.2 g/wTHfhbag93.9-35.2The [facility] HospitalComment on above:Performed By: #### CMP #### [facility] [address] [place] [address] Dr. Ekta Estevez (RBC) [Entitic vol]100.3 fLCritically high81.0-99.0The [facility] HospitalComment on above:Performed By: #### CMP #### [facility] [address] [place] [address] Dr. Ekta Rivas #0.8 103/ulNormal0.3-0.8The [facility] HospitalComment on above:Performed By: #### CMP #### [facility] [address] [place] [address] Dr. Ekta Perkinsocytes/100 WBC (Bld)7.9 %Normal1.7-12.0The [facility] Comment on above:Performed By: #### CMP #### [facility] [address] [place] [address] Dr. Ekta Salazar #6.4 103/ulNormal1.4-6.5The [facility] HospitalComment on above:Performed By: #### CMP #### [facility] [address] [place] [address] Dr. Ekta Dimasutrophils/100 WBC (Bld)66.2 %Npgota50.0-75.0The [facility] HospitalComment on above:Performed By: #### CMP #### [facility] [address] [place] [address] Dr. Ekta Trevino mean volume (Bld) [Entitic vol]9.6 fLNormal9.5-13.5The [facility] HospitalComment on above:Performed By: #### CMP #### [facility] [address] [place] [address] Dr. Ekta DriverT255 103/ofWjyexs781-849Ngr [facility] HospitalComment on above: Performed By: #### CMP #### [facility] [address] [place] [address] Dr. Ekta FunkRBC3.50 106/ulCritically low4.20-5.40The [facility] HospitalComment on above:Performed By: #### CMP #### [facility] [address] [place] [address] Dr. Ekta FunkWBC9.7 103/ulNormal4.0-11.0The [facility] HospitalComment on above: Performed By: #### CMP #### [facility] [address] [place] [address] Dr. Ekta Castaneda 62-77-0770IDC [Mass/Vol]mg/LNormal<=1.0The [facility] HospitalComment on above:Performed By: #### CBC #### [facility] [address] [place] [address] Dr. Ekta Correa THYROXINE INDEX T7on 28-41-7639HWU7.97Wixjfb9.30-4.50The [facility] HospitalComment on above:Performed By: #### CBC #### [facility] [address] [place] [address] Dr. Ekta FunkT3U32.0 %Crbbes34.0-39.0The [facility] HospitalComment on above: Performed By: #### CBC #### [facility] [address] [place] [address] Dr. Ekta FunkT4 [Mass/Vol]8.20 ug/dLNormal4.80-13.90The [facility] Comment on above:Performed By: #### CBC #### [facility] [address] [place] [address] Dr. Ekta Shannon 06-01-7566Uvbd [Mass/Vol]61.0 ug/zTJwmfne06.0-170.0The [facility] HospitalComment on above:Performed By: #### B12FOL, VITAD, IRON #### [facility] [address] [place] [address] [address] Ekta CarrilloF 14(COMP METB)on 78-06-6328Wclqppo [Mass/Vol]2.9 g/dL Critically low3.4-5.0The [facility] HospitalComment on above:Performed By: #### CVDTBH #### [facility] [address] [address] [address] Ekta FunkAlbumin/Globulin [Mass ratio]0.6 {ratio}NormalThe [facility] HospitalComment on above:Performed By: #### CVDTBH #### [facility] [address] [place] [address] [address] Ekta Cowart [Catalytic activity/Vol]101 U/GTmqfpg15-267Isz [facility] HospitalComment on above:Performed By: #### CVDTBH #### [facility] [address] [place] [address] [address] Ekta Mccormick [Catalytic activity/Vol]16 U/XBfiolz50-95Omn [facility] HospitalComment on above:Performed By: #### CVDTBH #### [facility] [address] [address] [address] Ekta Harrison gap [Moles/Vol]14.6 mmol/LNormalThe [facility] Comment on above:Performed By: #### CVDTBH #### [facility] [address] [address] [address] Ekta Gonzalez [Catalytic activity/Vol]15 U/JTkeews95-45Vea [facility] HospitalComment on above:Performed By: #### CVDTBH #### [facility] [address] [place] [address] [address] Ekta FunkBilirubin [Mass/Vol]0.4 mg/dLNormal0.2-1.0The [facility] Comment on above:Performed By: #### CVDTBH #### [facility] [address] [place] [address] [address] Ekta FunkCalcium [Mass/Vol]9.2 mg/dLNormal8.5-10.1The [facility] Comment on above:Performed By: #### CVDTBH #### [facility] [address] [address] [address] Ekta FunkChloride [Moles/Vol]107 mmol/DCqtvkb72-651Xfg [facility] Comment on above:Performed By: #### CVDTBH #### [facility] [address] [place] [address] Dr. Ekta FunkCO2 [Moles/Vol]24.4 mmol/PVzjkmd69.0-32.0The [facility] Comment on above:Performed By: #### CVDTBH #### [facility] [address] [place] [address] Dr. Ekta FunkCreatinine [Mass/Vol]2.02 mg/dLCritically high0.55-1.02The [facility] HospitalComment on above:Performed By: #### CVDTBH #### [facility] [address] [place] [address] Dr. Ekta AbebeGFR-AF FSSAKLZC11 mL/min/1.42y8Vtttnkvwkr low>=60The [facility] HospitalComment on above:Performed By: #### CVDTBH #### [facility] [address] [address] [address] Ekta Ro-NON AF UJZNOWUT24 mL/min/1.63q1Ndnnjnqhmx low>=60The [facility] HospitalComment on above:Performed By: #### CVDTBH #### [facility] [address] [place] [address] Dr. Ekta FunkGlobulin (S) [Mass/Vol]4.5 g/dLNormalThe [facility] HospitalComment on above:Performed By: #### CVDTBH #### [facility] [address] [place] [address] Dr. Ekta FunkGlucose [Mass/Vol]103 mg/bXBzxkel06-095MgkFirelands [facility] Campus Comment on above:Performed By: #### CVDTBH #### [facility] [address] [place] [address] Dr. Ekta FunkPotassium [Moles/Vol]5.0 mmol/LNormal3.5-5.1The [facility] Comment on above:Performed By: #### CVDTBH #### [facility] [address] [place] [address] Dr. Ekta FunkProtein [Mass/Vol]7.4 g/dLNormal6.4-8.2The [facility] Comment on above:Performed By: #### CVDTBH #### [facility] [address] [place] [address] Dr. Ekta Nolandium [Moles/Vol]141 mmol/UKvqjmu593-502XgbFirelands Regional Medical [facility] South Campus Comment on above:Performed By: #### CVDTBH #### [facility] [address] [place] [address] Dr. Ekta FunkUrea nitrogen [Mass/Vol]23.0 mg/dLCritically high7.0-18.0The [facility] HospitalComment on above:Performed By: #### CVDTBH #### [facility] [address] [place] [address] Dr. Ekta [place] nitrogen/Creatinine [Mass ratio]11.4 mg/mgNormalThe [facility] HospitalComment on above:Performed By: #### CVDTBH #### [facility] [address] [place] [address] Dr. Ekta DoanHorama 19-65-0710LKE0.793 uIU/mLNormal0.358-3.740[facility] CampusComment on above:Performed By: #### CVDTBH #### [facility] [address] [place] [address] Dr. Ekta Lopez B12 AND FOLATEon 63-87-5785Hcnavkdfc (Vitamin B12) [Mass/Vol] 175.0 pg/mLCritically zny685.0-986.0The [facility] HospitalComment on above: Performed By: #### B12FOL, VITAD, IRON #### [facility] [address] [place] [address] Dr. Ekta FunkFOLATE10.30 ng/mLNormal8.60-58.90[facility] CampusComment on above:Performed By: #### B12FOL, VITAD, IRON #### [facility] [address] [place] [address] Dr. Ekta FunkVITAMIN D 25 OHon 69-28-3726QSC D 25-OH24.0 ng/mLNormalFirelands Regional Medical Center South CampusComment on above:Performed By: #### B12FOL, VITAD, IRON #### [facility] [address] [place] [address] Dr. Ekta Lopez D RANGESSEE [facility] Hospital - AkronComment on above: Result Comment: <20 ng/mL Vit D deficient 20 - <30 ng/mL Vit D insufficient 30 - 100 ng/mL Vit D sufficient >100 ng/mL Potential ToxicityPerformed By: #### B12FOL, VITAD, IRON #### [facility] [address] [place] [address] Dr. Ekta Hope Visiton 28-91-3306Qizxgy-up [id number] Sheila Mac 1950 F Date Provider Department Center 12/15/2022 3848-FAWNJASONRODRIGUEZ MOHAN [facility] No family history on file Level of Service:33400 DE OFFICE/OUTPATIENT ESTABLISHED MOD MDM 30-39 MIN Reason for Visit and Comments: Follow-up [769209] - Is here f/u stress test pt states she had Bruises all over both legs symptoms stated a week ago also stated legs are swollen and burningNormalUniversity of Seymour HospitalNM STRESS/REST MULTIon 63-21-2426RM STRESS/REST MULTIPatient: SHEILA MAC Exam Date: 12/05/2022 : 1950 Gender:F Ordering : DR KRZYSZTOF THOMPSON . Admission #: [id number] Family : Order #: [id number] CLICK HERE TO VIEW EXAM RADIOLOGY REPORT [...] by: Daniel Pineda M.D. on 12/06/2022 at 07:26[facility] HospitalECHOCARDIO M/2D COMPLETEon 26-01-6221WQEGQCINPZ M/2D COMPLETEPatient: SHEILA MAC Exam Date: 11/27/2022 : 1950 Gender:F Ordering : DR KRZYSZTOF THOMPSON . Admission #: [id number] Family : Order #: [id number] CLICK HERE TO VIEW EXAM ECHOCARDIOGRAM REPORT [...] by: Bong Gaspar M.D. on 11/27/2022 at 14:39NormalThAvita Health System [facility] AUTO DIFFon 61-34-8746KZMB #0.0 103/ulNormal0.0-0.1[facility] CampusComment on above:Performed By: #### INSULIN #### [facility] [address] [place] [address] Dr. Ekta Thorntonsophils/100 WBC (Bld)0.6 %Normal0.2-2.0[facility] Comment on above:Performed By: #### INSULIN #### [facility] [address] [place] [address] Dr. Ekta Anthony #0.3 103/ulNormal0.0-0.7The [facility] HospitalComment on above: Performed By: #### INSULIN #### [facility] [address] [place] [address] Dr. Ekta Abebeosinophils/100 WBC (Bld)4.8 %Normal0.9-7.0[facility] Comment on above:Performed By: #### INSULIN #### [facility] [address] [place] [address] Dr. Ekta Abeberythrocyte distribution width (RBC) [Ratio]13.3 %Fcativ63.0-15.0 [facility] CampusComment on above:Performed By: #### INSULIN #### [facility] [address] [place] [address] Dr. Ekta FunkHematocrit (Bld) [Volume fraction]29.1 %Critically low36.0-48.0 The [facility] Bucyrus HospitalComment on above:Performed By: #### INSULIN #### [facility] [address] [place] [address] Dr. Ekta FunkHemoglobin (Bld) [Mass/Vol]9.5 g/dLCritically low12.0-16.0The [facility] HospitalComment on above:Performed By: #### INSULIN #### [facility] [address] [place] [address] Dr. Ekta FunkIG #0.07 10e3/ulCritically high0.00-0.03The [facility] Comment on above:Performed By: #### INSULIN #### [facility] [address] [place] [address] Dr. Ekta FunkIG %1.0 %Critically high0.0-0.5The [facility] HospitalComment on above:Performed By: #### INSULIN #### [facility] [address] [place] [address] Dr. Ekta LundbergH #1.2 103/ulNormal1.2-3.8The [facility] HospitalComment on above:Performed By: #### INSULIN #### [facility] [address] [place] [address] Dr. Ekta Nettlesmphocytes/100 WBC (Bld)17.2 %Critically low20.5-60.0[facility] CampusComment on above:Performed By: #### INSULIN #### [facility] [address] [place] [address] Dr. Ekta MaloneUAL DIFF REQNONormalThe [facility] HospitalComment on above: Performed By: #### INSULIN #### [facility] [address] [place] [address] Dr. Ekta Oconnor (RBC) [Entitic mass]31.7 kbIpdbto62.7-34.0The [facility] HospitalComment on above:Performed By: #### INSULIN #### [facility] [address] [place] [address] Dr. Ekta Oconnor (RBC) [Mass/Vol]32.6 g/pTGmolwv64.9-35.2The [facility] HospitalComment on above:Performed By: #### INSULIN #### [facility] [address] [place] [address] Dr. Ekta Oconnor (RBC) [Entitic vol]97.0 lBNlvnuh46.0-99.0The [facility] HospitalComment on above:Performed By: #### INSULIN #### [facility] [address] [place] [address] Dr. Ekta Rivas #0.8 103/ulNormal0.3-0.8The [facility] HospitalComment on above:Performed By: #### INSULIN #### [facility] [address] [address] [address] Ekta Perkinsocytes/100 WBC (Bld)11.1 %Normal1.7-12.0The [facility] Comment on above:Performed By: #### INSULIN #### [facility] [address] [place] [address] Dr. Ekta DimasUT #4.5 103/ulNormal1.4-6.5The [facility] HospitalComment on above:Performed By: #### INSULIN #### [facility] [address] [place] [address] Dr. Ekta Dimasutrophils/100 WBC (Bld)65.3 %Nyipjo45.0-75.0The [facility] HospitalComment on above:Performed By: #### INSULIN #### [facility] [address] [place] [address] Dr. Ekta Salomonlet mean volume (Bld) [Entitic vol]9.4 fLCritically low 9.5-13.5The [facility] HospitalComment on above:Performed By: #### INSULIN #### [facility] [address] [address] [address] Ekta FunkPLT263 103/haPnsgfm999-763Cuy [facility] HospitalComment on above: Performed By: #### INSULIN #### [facility] [address] [address] [address] Ekta FunkRBC3.00 106/ulCritically low4.20-5.40The [facility] HospitalComment on above:Performed By: #### INSULIN #### [facility] [address] [place] [address] Dr. Ekta FunkWBC6.9 103/ulNormal4.0-11.0The [facility] HospitalComment on above: Performed By: #### INSULIN #### [facility] [address] [place] [address] Dr. Ekta CarrilloF 14(COMP METB)on 39-29-9895Qhervlq [Mass/Vol]2.2 g/dL Critically low3.4-5.0The [facility] HospitalComment on above:Performed By: #### CMP #### [facility] [address] [place] [address] Dr. Ekta FunkAlbumin/Globulin [Mass ratio]0.6 {ratio}NormalThe [facility]cy[facility] HospitalComment on above:Performed By: #### CMP #### [facility] [address] [place] [address] Dr. Ekta Cowart [Catalytic activity/Vol]82 U/PXwufeg47-869Zvf [facility] HospitalComment on above:Performed By: #### CMP #### [facility] [address] [place] [address] Dr. Ekta Mccormick [Catalytic activity/Vol]13 U/LCritically gog76-78Xon [facility] HospitalComment on above:Performed By: #### CMP #### [facility] [address] [place] [address] Dr. Ekta Harrison gap [Moles/Vol]14.0 mmol/LNormalThe [facility] on above:Performed By: #### CMP #### [facility] [address] [address] [address] Ekta FunkAST [Catalytic activity/Vol]18 U/OJhpgnf08-41Hfg [facility] Incment on above:Performed By: #### CMP #### [facility] [address] [address] [address] Ekta FunkBilirubin [Mass/Vol]0.4 mg/dLNormal0.2-1.0The [facility] Comment on above:Performed By: #### CMP #### [facility] [address] [address] [address] Ekta FunkCalcium [Mass/Vol]8.6 mg/dLNormal8.5-10.1The [facility] Comment on above:Performed By: #### CMP #### [facility] [address] [place] [address] Dr. Ekta FunkChloride [Moles/Vol]108 mmol/LCritically gxym93-029Xpk [facility] HospitalComment on above:Performed By: #### CMP #### [facility] [address] [address] [address] Ekta FunkCO2 [Moles/Vol]19.6 mmol/LCritically low21.0-32.0The [facility] HospitalComment on above:Performed By: #### CMP #### [facility] [address] [place] [address] Dr. Ekta FunkCreatinine [Mass/Vol]1.70 mg/dLCritically high0.55-1.02The [facility] HospitalComment on above:Performed By: #### CMP #### [facility] [address] [address] [address] Ekta AbebeGFR-AF CYTORHRS89 mL/min/1.19j9Jhbouacydm low>=60The [facility] HospitalComment on above:Performed By: #### CMP #### [facility] [address] [address] [address] Ekta AbebeGFR-NON AF FIXNQYIR07 mL/min/1.12s1Jotbqjmqwk low>=60The [facility] HospitalComment on above:Performed By: #### CMP #### [facility] [address] [address] [address] Ekta FunkGlobulin (S) [Mass/Vol]3.6 g/dLNormalThParkview Health Bryan HospitalComment on above:Performed By: #### CMP #### [facility] [address] [address] [address] Ekta FunkGlucose [Mass/Vol]103 mg/sQRbpczk31-272Utc [facility] Comment on above:Performed By: #### CMP #### [facility] [address] [address] [address] Ekta FunkPotassium [Moles/Vol]4.6 mmol/LNormal3.5-5.1The [facility] Comment on above:Performed By: #### CMP #### [facility] [address] [place] [address] Dr. Ekta FunkProtein [Mass/Vol]5.8 g/dLCritically low6.4-8.2The [facility] HospitalComment on above:Performed By: #### CMP #### [facility] [address] [address] [address] Ekta FunkSodium [Moles/Vol]137 mmol/QFyopue222-102MkcFirelands [facility] Comment on above:Performed By: #### CMP #### [facility] [address] [address] [address] Ekta FunkUrea nitrogen [Mass/Vol]26.0 mg/dLCritically high7.0-18.0The [facility] HospitalComment on above:Performed By: #### CMP #### [facility] [address] [address] [address] Ekta Spring nitrogen/Creatinine [Mass ratio]15.3 mg/mgNormalThe [facility] HospitalComment on above:Performed By: #### CMP #### [facility] [address] [place] [address] Dr. Ekta CaalC AUTO DIFFon [id number] #0.1 103/ulNormal0.0-0.1The [facility] HospitalComment on above:Performed By: #### CBC #### [facility] [address] [address] [address] Ekta FunkBasophils/100 WBC (Bld)0.7 %Normal0.2-2.0[facility] Comment on above:Performed By: #### CBC #### [facility] [address] [place] [address] Dr. Ekta Anthony #0.3 103/ulNormal0.0-0.7The [facility] HospitalComment on above: Performed By: #### CBC #### [facility] [address] [place] [address] Dr. Ekta Abebeosinophils/100 WBC (Bld)3.4 %Normal0.9-7.0[facility] Comment on above:Performed By: #### CBC #### [facility] [address] [place] [address] Dr. Ekta Abeberythrocyte distribution width (RBC) [Ratio]13.6 %Hydput21.0-15.0 [facility] CampusComment on above:Performed By: #### CBC #### [facility] [address] [place] [address] Dr. Ekta FunkHematocrit (Bld) [Volume fraction]32.1 %Critically low36.0-48.0 The [facility] HospitalComment on above:Performed By: #### CBC #### [facility] [address] [place] [address] Dr. Ekta FunkHemoglobin (Bld) [Mass/Vol]10.3 g/dLCritically low12.0-16.0[facility] CampusComment on above:Performed By: #### CBC #### [facility] [address] [place] [address] Dr. Ekta Olivares #0.08 10e3/ulCritically high0.00-0.03[facility] Comment on above:Performed By: #### CBC #### [facility] [address] [place] [address] Dr. Ekta Olivares %0.9 %Critically high0.0-0.5The [facility] HospitalComment on above:Performed By: #### CBC #### [facility] [address] [place] [address] Dr. Ekta Putnam #0.9 103/ulCritically low1.2-3.8The [facility] Comment on above:Performed By: #### CBC #### [facility] [address] [place] [address] Dr. Ekta Lundberghocytes/100 WBC (Bld)10.7 %Critically low20.5-60.0The [facility] HospitalComment on above:Performed By: #### CBC #### [facility] [address] [place] [address] Dr. Ekta Beckham DIFF REQNONormalThe [facility] HospitalComment on above: Performed By: #### CBC #### [facility] [address] [place] [address] Dr. Ekta Frye (RBC) [Entitic mass]32.2 zbMilqnq49.7-34.0[facility] CampusComment on above:Performed By: #### CBC #### [facility] [address] [place] [address] Dr. Ekta Oconnor (RBC) [Mass/Vol]32.1 g/xWEeqvnh93.9-35.2The [facility] HospitalComment on above:Performed By: #### CBC #### [facility] [address] [place] [address] Dr. Ekta Estevez (RBC) [Entitic vol]100.3 fLCritically high81.0-99.0[facility] CampusComment on above:Performed By: #### CBC #### [facility] [address] [place] [address] Dr. Ekta Rivas #0.9 103/ulCritically high0.3-0.8The [facility] Comment on above:Performed By: #### CBC #### [facility] [address] [place] [address] Dr. Yilan ChangMonocytes/100 WBC (Bld)9.9 %Normal1.7-12.0The [facility] Comment on above:Performed By: #### CBC #### [facility] [address] [place] [address] Dr. Ekta Salazar #6.4 103/ulNormal1.4-6.5The [facility] HospitalComment on above:Performed By: #### CBC #### [facility] [address] [place] [address] Dr. Ekta Dimasutrophils/100 WBC (Bld)74.4 %Jljrfn06.0-75.0The [facility] HospitalComment on above:Performed By: #### CBC #### [facility] [address] [place] [address] Dr. Ekta Saloomnlet mean volume (Bld) [Entitic vol]9.5 fLNormal9.5-13.5The [facility] HospitalComment on above:Performed By: #### CBC #### [facility] [address] [place] [address] Dr. Ekta DriverT267 103/rqFgbvgc359-050Wsy [facility] HospitalComment on above: Performed By: #### CBC #### [facility] [address] [place] [address] Dr. Ekta FunkRBC3.20 106/ulCritically low4.20-5.40The [facility] HospitalComment on above:Performed By: #### CBC #### [facility] [address] [place] [address] Dr. Ekta FunkWBC8.6 103/ulNormal4.0-11.0The [facility] HospitalComment on above: Performed By: #### CBC #### [facility] [address] [place] [address] Dr. Ekta ThorntonSO #0.1 103/ulNormal0.0-0.1The [facility] HospitalComment on above:Performed By: #### CMP #### [facility] [address] [place] [address] Dr. Ekta Thorntonsophils/100 WBC (Bld)0.7 %Normal0.2-2.0The [facility] Comment on above:Performed By: #### CMP #### [facility] [address] [place] [address] Dr. Ekta Anthony #0.3 103/ulNormal0.0-0.7The [facility] HospitalComment on above: Performed By: #### CMP #### [facility] [address] [place] [address] Dr. Ekta Abebeosinophils/100 WBC (Bld)3.9 %Normal0.9-7.0The [facility] Comment on above:Performed By: #### CMP #### [facility] [address] [place] [address] Dr. Ekta Abeberythrocyte distribution width (RBC) [Ratio]13.2 %Fqktxd53.0-15.0 [facility] CampusComment on above:Performed By: #### CMP #### [facility] [address] [place] [address] Dr. Ekta FunkHematocrit (Bld) [Volume fraction]28.0 %Critically low36.0-48.0 [facility] CampusComment on above:Performed By: #### CMP #### [facility] [address] [place] [address] Dr. Ekta FunkHemoglobin (Bld) [Mass/Vol]9.3 g/dLCritically low12.0-16.0The [facility] HospitalComment on above:Performed By: #### CMP #### [facility] [address] [place] [address] Dr. Ekta Olivares #0.08 10e3/ulCritically high0.00-0.03The [facility] Comment on above:Performed By: #### CMP #### [facility] [address] [place] [address] Dr. Ekta Olivares %1.1 %Critically high0.0-0.5The [facility] HospitalComment on above:Performed By: #### CMP #### [facility] [address] [place] [address] Dr. Ekta Putnam #0.9 103/ulCritically low1.2-3.8The [facility] Comment on above:Performed By: #### CMP #### [facility] [address] [place] [address] Dr. Ekta Lundberghocytes/100 WBC (Bld)12.1 %Critically low20.5-60.0The [facility] HospitalComment on above:Performed By: #### CMP #### [facility] [address] [place] [address] Dr. Ekta Beckham DIFF REQNONormalThe [facility] HospitalComment on above: Performed By: #### CMP #### [facility] [address] [place] [address] Dr. Ekta Oconnor (RBC) [Entitic mass]32.0 tyKdjfjy47.7-34.0The [facility] HospitalComment on above:Performed By: #### CMP #### [facility] [address] [place] [address] Dr. Ekta Oconnor (RBC) [Mass/Vol]33.2 g/lFFjviff24.9-35.2The [facility] HospitalComment on above:Performed By: #### CMP #### [facility] [address] [place] [address] Dr. Ekta Oconnor (RBC) [Entitic vol]96.2 qLVtcyql43.0-99.0The [facility] HospitalComment on above:Performed By: #### CMP #### [facility] [address] [place] [address] Dr. Ekta Rivas #0.7 103/ulNormal0.3-0.8The [facility] HospitalComment on above:Performed By: #### CMP #### [facility] [address] [place] [address] Dr. Ekta Perkinsocytes/100 WBC (Bld)9.8 %Normal1.7-12.0The [facility] Comment on above:Performed By: #### CMP #### [facility] [address] [place] [address] Dr. Ekta DimasUT #5.2 103/ulNormal1.4-6.5The [facility] HospitalComment on above:Performed By: #### CMP #### [facility] [address] [place] [address] Dr. Ekta Dimasutrophils/100 WBC (Bld)72.4 %Ailhoi96.0-75.0The [facility] HospitalComment on above:Performed By: #### CMP #### [facility] [address] [place] [address] Dr. Ekta FunkPlatelet mean volume (Bld) [Entitic vol]9.4 fLCritically low 9.5-13.5The [facility] HospitalComh[facility] on above:Performed By: #### CMP #### [facility] [address] [place] [address] Dr. Ekta FunkPLT250 103/vyCxyptu609-076Gtv [facility] on above: Performed By: #### CMP #### [facility] [address] [place] [address] Dr. Ekta FunkRBC2.91 106/ulCritically low4.20-5.40The [facility] on above:Performed By: #### CMP #### [facility] [address] [place] [address] Dr. Ekta FunkWBC7.2 103/ulNormal4.0-11.0The [facility] HospitalComh[facility] on above: Performed By: #### CMP #### [facility] [address] [place] [address] Dr. Ekta FunkPROF 14(COMP METB)on [id number] [Mass/Vol]2.1 g/dL Critically low3.4-5.0The [facility] on above:Performed By: #### CMP #### [facility] [address] [place] [address] Dr. Ekta FunkAlbumin/Globulin [Mass ratio]0.6 {ratio}NormalThe [facility] HospitalComh[facility] on above:Performed By: #### CMP #### [facility] [address] [address] [address] Ekta Cowart [Catalytic activity/Vol]68 U/KLwknrv83-281Puz [facility] HospitalComment on above:Performed By: #### CMP #### [facility] [address] [address] [address] Ekta AlcantaraT [Catalytic activity/Vol]14 U/PIbjycu93-28Srf [facility] HospitalComment on above:Performed By: #### CMP #### [facility] [address] [address] [address] Ekta Mcleodon gap [Moles/Vol]12.9 mmol/LNormalThe [facility] Comment on above:Performed By: #### CMP #### [facility] [address] [place] [address] Dr. Ekta FunkAST [Catalytic activity/Vol]14 U/LCritically eqn48-42Uor [facility] HospitalComment on above:Performed By: #### CMP #### [facility] [address] [place] [address] Dr. Ekta FunkBilirubin [Mass/Vol]0.3 mg/dLNormal0.2-1.0The [facility] Comment on above:Performed By: #### CMP #### [facility] [address] [place] [address] Dr. Ekta FunkCalcium [Mass/Vol]8.3 mg/dLCritically low8.5-10.1The [facility] HospitalComment on above:Performed By: #### CMP #### [facility] [address] [place] [address] Dr. Ekta FunkChloride [Moles/Vol]109 mmol/LCritically dpro57-004Fhr [facility] HospitalComment on above:Performed By: #### CMP #### [facility] [address] [address] [address] Ekta FunkCO2 [Moles/Vol]19.3 mmol/LCritically low21.0-32.0The [facility] HospitalComment on above:Performed By: #### CMP #### [facility] [address] [address] [address] Ekta FunkCreatinine [Mass/Vol]1.54 mg/dLCritically high0.55-1.02The [facility], Incment on above:Performed By: #### CMP #### [facility] [address] [address] [address] Dash ChangEGFR-AF LPUGYPOQ28 mL/min/1.89f2Ihjmobpoyw low>=60The [facility] HospitalComment on above:Performed By: #### CMP #### [facility] [address] [address] [address] Ekta AbebeGFR-NON AF UAXVRPNC00 mL/min/1.69h8Gmnvfvkwxc low>=60The [facility] HospitalComment on above:Performed By: #### CMP #### [facility] [address] [address] [address] Ekta FunkGlobulin (S) [Mass/Vol]3.7 g/dLNormalThe [facility] HospitalComment on above:Performed By: #### CMP #### [facility] [address] [address] [address] Ekta FunkGlucose [Mass/Vol]117 mg/dLCritically ocnt56-978Gii [facility] HospitalComment on above:Performed By: #### CMP #### [facility] [address] [address] [address] Ekta FunkPotassium [Moles/Vol]4.2 mmol/LNormal3.5-5.1The [facility] Comment on above:Performed By: #### CMP #### [facility] [address] [address] [address] Ekta FunkProtein [Mass/Vol]5.8 g/dLCritically low6.4-8.2The [facility] HospitalComh[facility] on above:Performed By: #### CMP #### [facility] [address] [address] [address] Ekta FunkSodium [Moles/Vol]137 mmol/KFfuffw864-957Jbp [facility] Comment on above:Performed By: #### CMP #### [facility] [address] [place] [address] Dr. Ekta Spring nitrogen [Mass/Vol]27.0 mg/dLCritically high7.0-18.0The [facility] HospitalComment on above:Performed By: #### CMP #### [facility] [address] [place] [address] Dr. Ekta Spring nitrogen/Creatinine [Mass ratio]17.5 mg/mgNormalThe [facility] HospitalComment on above:Performed By: #### CMP #### [facility] [address] [place] [address] Dr. Ekta FunkAMMONIAon [id number] (P) [Moles/Vol]13 umol/HYykxnt49-49 The [facility] HospitalComment on above:Performed By: #### CVDTBH #### [facility] [address] [place] [address] Dr. Ekta Agarwal AUTO DIFFon [id number] #0.0 103/ulNormal0.0-0.1The [facility] HospitalComment on above:Performed By: #### CMP #### [facility] [address] [place] [address] Dr. Ekta FunkBasophils/100 WBC (Bld)0.4 %Normal0.2-2.0[facility] Comment on above:Performed By: #### CMP #### [facility] [address] [place] [address] Dr. Ekta Anthony #0.4 103/ulNormal0.0-0.7The [facility] on above: Performed By: #### CMP #### [facility] [address] [place] [address] Dr. Ekta Abebeosinophils/100 WBC (Bld)3.8 %Normal0.9-7.0The [facility] Comment on above:Performed By: #### CMP #### [facility] [address] [place] [address] Dr. Ekta Abeberythrocyte distribution width (RBC) [Ratio]13.2 %Phmtsr92.0-15.0 [facility] CampusComment on above:Performed By: #### CMP #### [facility] [address] [place] [address] Dr. Ekta FunkHematocrit (Bld) [Volume fraction]34.0 %Critically low36.0-48.0 The [facility] HospitalComment [facility] above:Performed By: #### CMP #### [facility] [address] [place] [address] Dr. Ekta FunkHemoglobin (Bld) [Mass/Vol]11.5 g/dLCritically low12.0-16.0The [facility] HospitalComment on above:Performed By: #### CMP #### [facility] [address] [place] [address] Dr. Ekta FunkIG #0.11 10e3/ulCritically high0.00-0.03The [facility] Comment on above:Performed By: #### CMP #### [facility] [address] [place] [address] Dr. Ekta Olivares %1.2 %Critically high0.0-0.5The [facility] HospitalComment on above:Performed By: #### CMP #### [facility] [address] [place] [address] Dr. Ekta Putnam #1.4 103/ulNormal1.2-3.8The [facility] HospitalComment on above:Performed By: #### CMP #### [facility] [address] [place] [address] Dr. Ekta Lundberghocytes/100 WBC (Bld)14.9 %Critically low20.5-60.0[facility] CampusComment on above:Performed By: #### CMP #### [facility] [address] [place] [address] Dr. Ekta MaloneUAL DIFF REQNONormalThe [facility] HospitalComment on above: Performed By: #### CMP #### [facility] [address] [place] [address] Dr. Ekta Frye (RBC) [Entitic mass]32.5 exTxhnxn31.7-34.0The [facility] HospitalComment on above:Performed By: #### CMP #### [facility] [address] [place] [address] Dr. Ekta Oconnor (RBC) [Mass/Vol]33.8 g/qWYsbide97.9-35.2The [facility] HospitalComment on above:Performed By: #### CMP #### [facility] [address] [place] [address] Dr. Ekta Estevez (RBC) [Entitic vol]96.0 hQRsknov19.0-99.0The [facility] HospitalComment on above:Performed By: #### CMP #### [facility] [address] [place] [address] Dr. Ekta Rivas #0.9 103/ulCritically high0.3-0.8The [facility] Comment on above:Performed By: #### CMP #### [facility] [address] [place] [address] Dr. Ekta Perkinsocytes/100 WBC (Bld)9.7 %Normal1.7-12.0The [facility] Comment on above:Performed By: #### CMP #### [facility] [address] [place] [address] Dr. Ekta Salazar #6.4 103/ulNormal1.4-6.5The [facility] HospitalComment on above:Performed By: #### CMP #### [facility] [address] [place] [address] Dr. Ekta Dimasutrophils/100 WBC (Bld)70.0 %Wxqcpw02.0-75.0The [facility] HospitalComment on above:Performed By: #### CMP #### [facility] [address] [place] [address] Dr. Ekta Trevino mean volume (Bld) [Entitic vol]9.3 fLCritically low 9.5-13.5The [facility] HospitalComment on above:Performed By: #### CMP #### [facility] [address] [place] [address] Dr. Ekta FunkPLT308 103/srEmqlpz752-009Vdz [facility] HospitalComment on above: Performed By: #### CMP #### [facility] [address] [place] [address] Dr. Ekta FunkRBC3.54 106/ulCritically low4.20-5.40The [facility] HospitalComment on above:Performed By: #### CMP #### [facility] [address] [place] [address] Dr. Ekta FunkWBC9.1 103/ulNormal4.0-11.0The [facility] HospitalComment on above: Performed By: #### CMP #### [facility] [address] [place] [address] Dr. Ekta FunkCPKorama [id number] [Catalytic activity/Vol]21 U/LCritically low 26-192The [facility] HospitalComment on above:Performed By: #### B12FOL, VITAD, IRON #### [facility] [address] [place] [address] Dr. Ekta FunkCT STROKE HEAD WOon [id number] STROKE HEAD WOEXAMINATION: CT STROKE HEAD WO [...] by: VANESSA PARADA Date: 2022-11-24 11:09 NormalThe [facility] W CONon [id number] HEAD WO W CON EXAMINATION: CTA HEAD [...] authenticated by: DANIEL TORRESAYLA Date: 2022-11-24 12:41NormalThe [facility] HospitalCULTURE URINEon [id number] URINECulture Observations: NO GROWTH.NormalThe [facility] HospitalComment on above:Performed By: #### INSULIN #### [facility] [address] [address] [address] Ekta FunkCovid-19 PCR (CVDTB)on [id number]-CoV-2 (COVID-19) RNA GANESH+probe Ql (Unsp spec)Not detectedNormalNOT DETECTEDFirelands Regional Medical Center South Campus Comment on above:Result Comment: When diagnostic testing [...] for this test is supported by the [employer] Worker of Health and Human Service's declaration that [...] longer be used).Performed By: #### CVDTBH #### [facility] [address] [place] [address] Dr. Ekta Mckeon URINE PROFILEon [id number] Ql (U)NegativeNormal NEGATIVEThe [facility] HospitalComment on above:Performed By: #### CBC #### [facility] [address] [address] [address] Ekta FunkClarity (U)CLEARNormalCLEARThe [facility] HospitalComment on above: Performed By: #### CBC #### [facility] [address] [address] [address] Ekta Boothe (U)LT. YELLOWNormalYELLOWFirelands Regional Medical Center South CampusComment on above:Performed By: #### CBC #### [facility] [address] [address] [address] Ekta Chan micrscopic examination will be performed if indicated. NormalThe Mason HospitalComment on above:Performed By: #### CBC #### [facility] [address] [address] [address] Ekta FunkGlucose Ql (U)NegativeNormalNEGATIVEFirelands Regional Medical Center South CampusComment on above:Performed By: #### CBC #### [facility] [address] [place] [address] Dr. Ekta FunkHemoglobin Ql (U)NegativeNormalNEGATIVEThe [facility] on above:Performed By: #### CBC #### [facility] [address] [address] [address] Ekta FunkKetones Ql (U)NegativeNormalNEGATIVEFirelands Regional Medical Center South CampusComment on above:Performed By: #### CBC #### [facility] [address] [place] [address] Dr. Ekta FnukLEUKOCYTESNegativeNormalNEGATIVEFirelands Regional Medical Center South CampusComment on above:Performed By: #### CBC #### [facility] [address] [address] [address] Ekta FunkNitrite Ql (U)NegativeNormalNEGATIVEFirelands Regional Medical Center South CampusComment on above:Performed By: #### CBC #### [facility] [address] [address] [address] Ekta FunkpH (U)5.5 [pH]Normal5-9Firelands [facility] Center South CampusComment on above: Performed By: #### CBC #### [facility] [address] [place] [address] Dr. Ekta FunkSPEC GRAVITY1.986Zwfbpn2.005-<=1.025The [facility]olis HospitalComment on above:Performed By: #### CBC #### [facility] [address] [address] [address] Ekta Camejo PROTEINNegativeNormalNEGATIVE/ TRACEThe [facility] Comment on above:Performed By: #### CBC #### [facility] [address] [address] [address] Ekta Villarreal MICRO INDNOT INDICATEDNoCrystal Clinic Orthopedic CenterComment on above:Performed By: #### CBC #### [facility] [address] [place] [address] Dr. Ekta FunkUrobilinogen Qn (U)0.2 {Ivan'U}/dLNormal0.2 - 1.0The [facility] HospitalComment on above:Performed By: #### CBC #### [facility] [address] [place] [address] Dr. Ekta FunkGLYCOHEMOGLOBIN A1Con [id number] RECOMMENDATIONSEE BELOWNormal The [facility] HospitalComment on above:Result Comment: ADA RECOMMENDED LIMIT 4.0 - 6.0 ADA THERAPEUTIC TARGET < 7.0 ACTION SUGGESTED > 7.0Performed By: #### B12FOL, VITAD, IRON #### [facility] [address] [place] [address] Dr. Ekta FunkGlucose [Mass/Vol]143 mg/dLBellevue HospitalComment on above:Performed By: #### B12FOL, VITAD, IRON #### [facility] [address] [place] [address] Dr. Ekta FunkHbA1c (Bld) [Mass fraction]6.6 %Critically high4.5-6.2The [facility] HospitalComment on above:Performed By: #### B12FOL, VITAD, IRON #### [facility] [address] [place] [address] Dr. Ekta FunkLACTATE/LACTIC ACIDon [id number] [Moles/Vol]1.6 mmol/L Normal0.4-2.0The [facility] HospitalComment on above:Performed By: #### CMP #### [facility] [address] [address] [address] Ekta FunkLactate [Moles/Vol]2.1 mmol/LCritically high0.4-2.0The [facility] on above:Performed By: #### B12FOL, VITAD, IRON #### [facility] [address] [place] [address] Dr. Ekta FunkLIPASEon [id number] [Catalytic activity/Vol]165.0 U/LNormal 73.0-393.0[facility] on above:Performed By: #### B12FOL, VITAD, IRON #### [facility] [address] [place] [address] Dr. Ekta EncinasID PROFILEon [id number]-HDL RATIO NORMSEE [facility]ronComh[facility] & [facility] on above:Result Comment: 3.3 - 4.4 LOW RISK 4.4 - 7.1 AVERAGE RISK 7.1 - 11.0 MODERATE RISK >11.0 HIGH RISKPerformed By: #### B12FOL, VITAD, IRON #### [facility] [address] [place] [address] Dr. Ekta Tejedaesterol [Mass/Vol]248 mg/dLCritically high<=200The [facility] on above:Performed By: #### B12FOL, VITAD, IRON #### [facility] [address] [place] [address] Dr. Ekta FunkCholesterol in HDL [Mass/Vol]58 mg/lTOrqlqu00-96Brt [facility] on above:Performed By: #### B12FOL, VITAD, IRON #### [facility] [address] [place] [address] Dr. Ekta Tejedaesterol in LDL [Mass/Vol]165.6 mg/dLDiley Ridge Medical Center on above:Performed By: #### B12FOL, VITAD, IRON #### [facility] [address] [place] [address] Dr. Yilan ChangCholesterol.total/Cholesterol in HDL [Mass ratio]4.3 {ratio} NormalFirelands Regional Medical Center South CampusComment on above:Performed By: #### B12FOL, VITAD, IRON #### [facility] [address] [place] [address] Dr. Ekta Uriarte NORMAL> or = 60 mg/dl - LOW CARDIOVASCULAR RISK <40 mg/dl - HIGH CARDIOVASCULAR RISKBellevue HospitalComment on above:Performed By: #### B12FOL, VITAD, IRON #### [facility] [address] [place] [address] Dr. Ekta FunkLDL CALC NORMALSEE BELOWBellevue HospitalComment on above:Result Comment: <100 mg/dl OPTIMAL 100 - 129 mg/dl NEAR OR ABOVE OPTIMAL 130 - 159 mg/dl BORDERLINE HIGH 160 - 189 mg/dl HIGH >190 mg/dl VERY HIGH Performed By: #### B12FOL, VITAD, IRON #### [facility] [address] [place] [address] Dr. Ekta FunkTriglyceride [Mass/Vol]122 mg/dLNormal<=150Fire[facility] Comment on above:Performed By: #### B12FOL, VITAD, IRON #### [facility] [address] [place] [address] Dr. Ekta AnneLDL CALC24.4 mg/dLBellevue HospitalComment on above: Performed By: #### B12FOL, VITAD, IRON #### [facility] [address] [place] [address] Dr. Ekta FunkLeonardo BRAIN WO CONon [id number] BRAIN WO CONI BRAIN WO CON 11/24/2022 [...] by: RAVEN ELAINE Date: 2022-11-24 19:35Normal The [facility] HospitalPROF 14(COMP METB)on [id number] [Mass/Vol]2.7 g/dL Critically low3.4-5.0The [facility] HospitalComment on above:Performed By: #### B12FOL, VITAD, IRON #### [facility] [address] [address] [address] Ekta FunkAlbumin/Globulin [Mass ratio]0.6 {ratio}NormalThe [facility] HospitalComment on above:Performed By: #### B12FOL, VITAD, IRON #### [facility] [address] [address] [address] Ekta Cowart [Catalytic activity/Vol]85 U/HNwiyri86-623Asr [facility] HospitalComment on above:Performed By: #### B12FOL, VITAD, IRON #### [facility] [address] [address] [address] Ekta Mccormick [Catalytic activity/Vol]18 U/YPjbhtt24-95Jsm [facility] HospitalComment on above:Performed By: #### B12FOL, VITAD, IRON #### [facility] [address] [address] [address] Ekta Harrison gap [Moles/Vol]18.9 mmol/LNormalThe [facility] Comment on above:Performed By: #### B12FOL, VITAD, IRON #### [facility] [address] [address] [address] Ekta FunkAST [Catalytic activity/Vol]16 U/EOzwvxc13-80Ryj [facility] HospitalComment on above:Performed By: #### B12FOL, VITAD, IRON #### [facility] [address] [place] [address] Dr. Ekta FunkBilirubin [Mass/Vol]0.4 mg/dLNormal0.2-1.0The [facility] Comment on above:Performed By: #### B12FOL, VITAD, IRON #### [facility] [address] [place] [address] Dr. Ekta FunkCalcium [Mass/Vol]9.5 mg/dLNormal8.5-10.1The [facility] Comment on above:Performed By: #### B12FOL, VITAD, IRON #### [facility] [address] [place] [address] Dr. Ekta FunkChloride [Moles/Vol]108 mmol/LCritically nzgi04-987Vis [facility] HospitalComment on above:Performed By: #### B12FOL, VITAD, IRON #### [facility] [address] [place] [address] Dr. Ekta FunkCO2 [Moles/Vol]21.1 mmol/LYqhfvj76.0-32.0[facility] Comment on above:Performed By: #### B12FOL, VITAD, IRON #### [facility] [address] [place] [address] Dr. Ekta FunkCreatinine [Mass/Vol]2.08 mg/dLCritically high0.55-1.02The [facility] HospitalComment on above:Performed By: #### B12FOL, VITAD, IRON #### [facility] [address] [place] [address] Dr. Ekta AbebeGFR-AF UOABPMKF42 mL/min/1.61j8Ctxszibvia low>=60The [facility] HospitalComment on above:Performed By: #### B12FOL, VITAD, IRON #### [facility] [address] [address] [address] Ekta AbebeGFR-NON AF AGLCNZUG60 mL/min/1.88k6Pvumurkteo low>=60The [facility] HospitalComment on above:Performed By: #### B12FOL, VITAD, IRON #### [facility] [address] [address] [address] Ekta FunkGlobulin (S) [Mass/Vol]4.6 g/dLNormalThe [facility] HospitalComment on above:Performed By: #### B12FOL, VITAD, IRON #### [facility] [address] [address] [address] Ekta FunkGlucose [Mass/Vol]119 mg/dLCritically ucue97-225Uhi [facility] HospitalComment on above:Performed By: #### B12FOL, VITAD, IRON #### [facility] [address] [place] [address] Dr. Ekta FunkPotassium [Moles/Vol]5.0 mmol/LNormal3.5-5.1The [facility] Comment on above:Performed By: #### B12FOL, VITAD, IRON #### [facility] [address] [address] [address] Ekta FunkProtein [Mass/Vol]7.3 g/dLNormal6.4-8.2[facility] Comment on above:Performed By: #### B12FOL, VITAD, IRON #### [facility] [address] [place] [address] Dr. Ekta FunkSodium [Moles/Vol]143 mmol/NPaenrz066-437Roz [facility] Comment on above:Performed By: #### B12FOL, VITAD, IRON #### [facility] [address] [place] [address] Dr. Ekta FunkUrea nitrogen [Mass/Vol]37.0 mg/dLCritically high7.0-18.0The [facility] HospitalComment on above:Performed By: #### B12FOL, VITAD, IRON #### [facility] [address] [place] [address] Dr. Ekta FunkUrea nitrogen/Creatinine [Mass ratio]17.8 mg/mgNoCrystal Clinic Orthopedic CenterComment on above:Performed By: #### B12FOL VITCAMI, IRON #### [facility] [address] [place] [address] Dr. Etka Rich, HIGH SENSITIVITYon 92-51-6648NBQUDO41.1 pg/mLNormal 4.0-51.3The [facility] on above:Result Comment: CUT-OFF POINTS HAVE BEEN ESTABLISHED BASED ON THE FOURTH UNIVERSAL DEFINITIONS OF MYOCARDIAL INFARCTION. THE UPPER REFERENCE LIMIT (URL) OF TROPONIN, DEFINED THE 99TH PERCENTILE OF cTnI DISTRIBUTION IN A REFERENCE POPULATION, HAS BEEN CONFIRMED THE DECISION THRESHOLD FOR TN DIAGNOSIS.Performed By: #### B12FOLCAROLYN, IRON #### [facility] [address] [place] [address] Dr. Ekta Carmona 41-02-4438PLF6.184 uIU/mLNormal0.358-3.740The [facility] on above:Performed By: #### B12FOL VITAD, IRON #### [facility] [address] [place] [address] Dr. Ekta FunkXR CHEST 1 Von [id number] CHEST 1 VEXAM: XR CHEST 1 V [...] Electronically authenticated by: NATALIIA TATE Date: 2022-11-24 11:00Bellevue HospitalBNPon [id number] peptide B (Bld) [Mass/Vol]565.0 pg/mLNormal<=900.0The [facility] on above:Performed By: #### INSULIN #### [facility] [address] [address] [address] Ekta Agarwal AUTO DIFFon [id number] #0.1 103/ulNormal0.0-0.1The [facility] HospitalComment on above:Performed By: #### CBC #### [facility] [address] [address] [address] Ekta FunkBasophils/100 WBC (Bld)0.6 %Normal0.2-2.0[facility] Comment on above:Performed By: #### CBC #### [facility] [address] [place] [address] Dr. Ekta Anthony #0.4 103/ulNormal0.0-0.7The [facility] HospitalComment on above: Performed By: #### CBC #### [facility] [address] [place] [address] Dr. Ekta Abebeosinophils/100 WBC (Bld)3.7 %Normal0.9-7.0The [facility] Comment on above:Performed By: #### CBC #### [facility] [address] [place] [address] Dr. Ekta Abeberythrocyte distribution width (RBC) [Ratio]13.2 %Qxutxw32.0-15.0 The [facility] HospitalComment on above:Performed By: #### CBC #### [facility] [address] [place] [address] Dr. Ekta FunkHematocrit (Bld) [Volume fraction]36.7 %Rzhhrq13.0-48.0The [facility] HospitalComment on above:Performed By: #### CBC #### [facility] [address] [place] [address] Dr. Ekta FunkHemoglobin (Bld) [Mass/Vol]12.4 g/rLSoxbnx63.0-16.0The [facility] HospitalComment on above:Performed By: #### CBC #### [facility] [address] [place] [address] Dr. Ekta Olivares #0.10 10e3/ulCritically high0.00-0.03The [facility] Comment on above:Performed By: #### CBC #### [facility] [address] [place] [address] Dr. Ekta Olivares %1.0 %Critically high0.0-0.5The [facility] HospitalComment on above:Performed By: #### CBC #### [facility] [address] [address] [address] Ekta Putnam #1.5 103/ulNormal1.2-3.8The [facility] HospitalComment on above:Performed By: #### CBC #### [facility] [address] [place] [address] Dr. Ekta Lundberghocytes/100 WBC (Bld)14.9 %Critically low20.5-60.0The [facility] HospitalComment on above:Performed By: #### CBC #### [facility] [address] [place] [address] Dr. Ekta Beckham DIFF REQNONormalThe [facility] HospitalComment on above: Performed By: #### CBC #### [facility] [address] [place] [address] Dr. Ekta Frye (RBC) [Entitic mass]32.8 ljXjloby63.7-34.0The [facility] HospitalComment on above:Performed By: #### CBC #### [facility] [address] [place] [address] Dr. Ekta Oconnor (RBC) [Mass/Vol]33.8 g/mWGbmzsw80.9-35.2The [facility] HospitalComment on above:Performed By: #### CBC #### [facility] [address] [place] [address] Dr. Ekta Oconnor (RBC) [Entitic vol]97.1 iQPfhioy42.0-99.0The [facility] HospitalComment on above:Performed By: #### CBC #### [facility] [address] [place] [address] Dr. Ekta Rivas #0.8 103/ulNormal0.3-0.8The [facility] HospitalComment on above:Performed By: #### CBC #### [facility] [address] [place] [address] Dr. Ekta Perkinsocytes/100 WBC (Bld)7.7 %Normal1.7-12.0The [facility] Comment on above:Performed By: #### CBC #### [facility] [address] [place] [address] Dr. Ekta Salazar #7.3 103/ulCritically high1.4-6.5The [facility] Comment on above:Performed By: #### CBC #### [facility] [address] [place] [address] Dr. Ekta Dimasutrophils/100 WBC (Bld)72.1 %Ueixdy46.0-75.0The [facility] HospitalComment on above:Performed By: #### CBC #### [facility] [address] [place] [address] Dr. Ekta Salomonlet mean volume (Bld) [Entitic vol]9.4 fLCritically low 9.5-13.5The [facility] HospitalComment on above:Performed By: #### CBC #### [facility] [address] [place] [address] Dr. Ekta DriverT251 103/usTlojfv709-079Xxd [facility] HospitalComment on above: Performed By: #### CBC #### [facility] [address] [place] [address] Dr. Ekta AllenC3.78 106/ulCritically low4.20-5.40The [facility] HospitalComment on above:Performed By: #### CBC #### [facility] [address] [place] [address] Dr. Ekta FunkWBC10.1 103/ulNormal4.0-11.0The [facility] HospitalComment on above:Performed By: #### CBC #### [facility] [address] [place] [address] Dr. Ekta Correa THYROXINE INDEX T7on 73-52-2847ZCM9.71Ftydvn9.30-4.50The [facility] HospitalComment on above:Performed By: #### INSULIN #### [facility] [address] [address] [address] Ekta FunkT3U35.0 %Typwkh31.0-39.0The [facility] HospitalComment on above: Performed By: #### INSULIN #### [facility] [address] [address] [address] Ekta FunkT4 [Mass/Vol]7.80 ug/dLNormal4.80-13.90The [facility] Comment on above:Performed By: #### INSULIN #### [facility] [address] [place] [address] Dr. Ekta FunkGLYCOHEMOGLOBIN A1Con [id number] RECOMMENDATIONSEE BELOWNormal The [facility] HospitalComment on above:Result Comment: ADA RECOMMENDED LIMIT 4.0 - 6.0 ADA THERAPEUTIC TARGET < 7.0 ACTION SUGGESTED > 7.0Performed By: #### B12FOL, VITAD, IRON #### [facility] [address] [place] [address] Dr. Ekta FunkGlucose [Mass/Vol]134 mg/dLNormalThe [facility] HospitalComment on above:Performed By: #### B12FOL, VITAD, IRON #### [facility] [address] [place] [address] Dr. Ekta FunkHbA1c (Bld) [Mass fraction]6.3 %Critically high4.5-6.2The [facility] HospitalComment on above:Performed By: #### B12FOL, VITAD, IRON #### [facility] [address] [place] [address] Dr. Ekta Shannon [id number] [Mass/Vol]55.0 ug/sMMfzlnx63.0-170.0The [facility] HospitalComment on above:Performed By: #### B12FOL, VITAD, IRON #### [facility] [address] [place] [address] Dr. Yilan ChangLIPID PROFILEon [id number]-HDL RATIO NORMSEE [facility] AkronComment on above:Result Comment: 3.3 - 4.4 LOW RISK 4.4 - 7.1 AVERAGE RISK 7.1 - 11.0 MODERATE RISK >11.0 HIGH RISKPerformed By: #### INSULIN #### [facility] [address] [address] [address] Ekta FuknCholesterol [Mass/Vol]294 mg/dLCritically high<=200The [facility] HospitalComment on above:Performed By: #### INSULIN #### [facility] [address] [address] [address] Ekta FunkCholesterol in HDL [Mass/Vol]64 mg/dLCritically uhvw18-63JemFirelands Regional Medical Center South CampusComhills & dales [facility] hospital on above:Performed By: #### INSULIN #### [facility] [address] [address] [address] Ekta FunkCholesterol in LDL [Mass/Vol]197.2 mg/dLBellevue HospitalComment on above:Performed By: #### INSULIN #### [facility] [address] [address] [address] Ekta Tejedaestertracy.total/Cholesterol in HDL [Mass ratio]4.6 {ratio} NormalThe [facility] on above:Performed By: #### INSULIN #### [facility] [address] [address] [address] Ekta Uriarte NORMAL> or = 60 mg/dl - LOW CARDIOVASCULAR RISK <40 mg/dl - HIGH CARDIOVASCULAR RISKBellevue HospitalComhills & dales general hospital on above:Performed By: #### INSULIN #### [facility] [address] [address] [address] Ekta FunkLDL CALC NORMALSEE [facility] AkronComment on above:Result Comment: <100 mg/dl OPTIMAL 100 - 129 mg/dl NEAR OR ABOVE OPTIMAL 130 - 159 mg/dl BORDERLINE HIGH 160 - 189 mg/dl HIGH >190 mg/dl VERY HIGH Performed By: #### INSULIN #### [facility] [address] [place] [address] Dr. Ekta FunkTriglyceride [Mass/Vol]164 mg/dLCritically high<=150The [facility] HospitalComment on above:Performed By: #### INSULIN #### [facility] [address] [address] [address] Ekta FunkVLDL CALC32.8 mg/dLNormalThe [facility] HospitalComment on above: Performed By: #### INSULIN #### [facility] [address] [address] [address] Ekta FunkPROF 14(COMP METB)on [id number] [Mass/Vol]3.0 g/dL Critically low3.4-5.0The [facility] HospitalComment on above:Performed By: #### INSULIN #### [facility] [address] [place] [address] Dr. Ekta FunkAlbumin/Globulin [Mass ratio]0.6 {ratio}NormalThe [facility] HospitalComment on above:Performed By: #### INSULIN #### [facility] [address] [place] [address] Dr. Ekta Cowart [Catalytic activity/Vol]92 U/PDiafeq73-075Pup [facility] HospitalComment on above:Performed By: #### INSULIN #### [facility] [address] [place] [address] Dr. Ekta Mccormick [Catalytic activity/Vol]26 U/HIvuclg60-27Nmc [facility] HospitalComment on above:Performed By: #### INSULIN #### [facility] [address] [address] [address] Ekta Harrison gap [Moles/Vol]16.2 mmol/LNormalThe [facility] Comment on above:Performed By: #### INSULIN #### [facility] [address] [place] [address] Dr. Ekta FunkAST [Catalytic activity/Vol]16 U/NBjmxqs07-60Olk [facility] HospitalComment on above:Performed By: #### INSULIN #### [facility] [address] [address] [address] Ekta FunkBilirubin [Mass/Vol]0.5 mg/dLNormal0.2-1.0The [facility] Comment on above:Performed By: #### INSULIN #### [facility] [address] [place] [address] Dr. Ekta FunkCalcium [Mass/Vol]9.7 mg/dLNormal8.5-10.1The [facility] Comment on above:Performed By: #### INSULIN #### [facility] [address] [address] [address] Ekta FunkChloride [Moles/Vol]105 mmol/HZbzxnz88-204Tbt [facility] Comment on above:Performed By: #### INSULIN #### [facility] [address] [place] [address] Dr. Ekta FunkCO2 [Moles/Vol]24.9 mmol/ABvdnsu45.0-32.0The [facility] Comment on above:Performed By: #### INSULIN #### [facility] [address] [place] [address] Dr. Ekta FunkCreatinine [Mass/Vol]2.18 mg/dLCritically high0.55-1.02The [facility] HospitalComment on above:Performed By: #### INSULIN #### [facility] [address] [place] [address] Dr. Ekta AbebeGFR-AF CWNGAKDC82 mL/min/1.50o1Ncjpgkivog low>=60The [facility] HospitalComment on above:Performed By: #### INSULIN #### [facility] [address] [place] [address] Dr. Ekta AbebeGFR-NON AF FRQHQHGP66 mL/min/1.79p7Xtgukmvzld low>=60The [facility] HospitalComment on above:Performed By: #### INSULIN #### [facility] [address] [place] [address] Dr. Ekta FunkGlobulin (S) [Mass/Vol]4.7 g/dLNormalThe [facility] HospitalComment on above:Performed By: #### INSULIN #### [facility] [address] [place] [address] Dr. Ekta FunkGlucose [Mass/Vol]114 mg/dLCritically usxx08-645Glv [facility] HospitalComment on above:Performed By: #### INSULIN #### [facility] [address] [address] [address] Ekta FunkPotassium [Moles/Vol]5.1 mmol/LNormal3.5-5.1[facility] Comment on above:Performed By: #### INSULIN #### [facility] [address] [address] [address] Ekta FunkProtein [Mass/Vol]7.7 g/dLNormal6.4-8.2[facility] Comment on above:Performed By: #### INSULIN #### [facility] [address] [address] [address] Ekta FunkSodium [Moles/Vol]141 mmol/ORvcswx144-557Lru [facility] Comment on above:Performed By: #### INSULIN #### [facility] [address] [address] [address] Ekta FunkUrea nitrogen [Mass/Vol]51.0 mg/dLCritically high7.0-18.0The [facility] HospitalComment on above:Performed By: #### INSULIN #### [facility] [address] [address] [address] Ekta Spring nitrogen/Creatinine [Mass ratio]23.4 mg/mgNormalThe [facility] HospitalComment on above:Performed By: #### INSULIN #### [facility] [address] [address] [address] Ekta DoanHorama 21-52-1407NSD8.935 uIU/mLNormal0.358-3.740[facility] CampusComment on above:Performed By: #### INSULIN #### [facility] [address] [place] [address] Dr. Ekta FunkXR CHEST 2 Von [id number] CHEST 2 VEXAMINATION: XR CHEST 2 V [...] Electronically authenticated by: GODWIN BECK Date: 2022-11-13 15:40[facility]PR[facility](COMP METB)on [id number] [Mass/Vol]3.0 g/dL Critically low3.4-5.0The [facility] HospitalComment on above:Performed By: #### B12FOL, VITAD, IRON #### [facility] [address] [place] [address] Dr. Ekta FunkAlbumin/Globulin [Mass ratio]0.7 {ratio}NormalThe [facility] HospitalComment on above:Performed By: #### B12FOL, VITAD, IRON #### [facility] [address] [place] [address] Dr. Ekta Cowart [Catalytic activity/Vol]89 U/TSqtnin96-355Jzf [facility] HospitalComment on above:Performed By: #### B12FOL, VITAD, IRON #### [facility] [address] [place] [address] Dr. Ekta Mccormick [Catalytic activity/Vol]29 U/LWjsqkx89-59Vdr [facility] HospitalComment on above:Performed By: #### B12FOL, VITAD, IRON #### [facility] [address] [address] [address] Ekta Harrison gap [Moles/Vol]15.2 mmol/LNormalThe [facility] Comment on above:Performed By: #### B12FOL, VITAD, IRON #### [facility] [address] [place] [address] Dr. Ekta Gonzalez [Catalytic activity/Vol]14 U/LCritically wvx04-42Vpg [facility] HospitalComment on above:Performed By: #### B12FOL, VITAD, IRON #### [facility] [address] [place] [address] Dr. Ekta FunkBilirubin [Mass/Vol]0.4 mg/dLNormal0.2-1.0[facility] Comment on above:Performed By: #### B12FOL, VITAD, IRON #### [facility] [address] [place] [address] Dr. Ekta FunkCalcium [Mass/Vol]9.1 mg/dLNormal8.5-10.1The [facility] Comment on above:Performed By: #### B12FOL, VITAD, IRON #### [facility] [address] [place] [address] Dr. Ekta FunkChloride [Moles/Vol]106 mmol/LMymfqd02-503CpoFirelands [facility] Comment on above:Performed By: #### B12FOL, VITAD, IRON #### [facility] [address] [place] [address] Dr. Ekta FunkCO2 [Moles/Vol]24.2 mmol/TVeoqhw51.0-32.0[facility] Comment on above:Performed By: #### B12FOL, VITAD, IRON #### [facility] [address] [place] [address] Dr. Ekta FunkCreatinine [Mass/Vol]1.89 mg/dLCritically high0.55-1.02[facility] CampusComment on above:Performed By: #### B12FOL, VITAD, IRON #### [facility] [address] [place] [address] Dr. Ekta Ro-AF XRGMMHJF86 mL/min/1.86d5Qulqkdaker low>=60The [facility] HospitalComment on above:Performed By: #### B12FOL, VITAD, IRON #### [facility] [address] [place] [address] Dr. Ekta Ro-NON AF BTVBLWIP23 mL/min/1.61e4Axdvqtujhi low>=60The [facility] HospitalComment on above:Performed By: #### B12FOL, VITAD, IRON #### [facility] [address] [place] [address] Dr. Ekta FunkGlobulin (S) [Mass/Vol]4.1 g/dLNormSelect Medical Specialty Hospital - Southeast OhioComment on above:Performed By: #### B12FOL, VITAD, IRON #### [facility] [address] [address] [address] Ekta FunkGlucose [Mass/Vol]108 mg/dLCritically ldzg32-394Pxt [facility] HospitalComment on above:Performed By: #### B12FOL, VITAD, IRON #### [facility] [address] [place] [address] Dr. Ekta FunkPotassium [Moles/Vol]4.4 mmol/LNormal3.5-5.1The [facility] Comment on above:Performed By: #### B12FOL, VITAD, IRON #### [facility] [address] [place] [address] Dr. Ekta FunkProtein [Mass/Vol]7.1 g/dLNormal6.4-8.2The [facility] Comment on above:Performed By: #### B12FOL, VITAD, IRON #### [facility] [address] [place] [address] Dr. Ekta FunkSodium [Moles/Vol]141 mmol/DBxmbpt494-096Oam [facility] Comment on above:Performed By: #### B12FOL, VITAD, IRON #### [facility] [address] [place] [address] Dr. Ekta FunkUrea nitrogen [Mass/Vol]40.0 mg/dLCritically high7.0-18.0The [facility] HospitalComment on above:Performed By: #### B12FOL, VITAD, IRON #### [facility] [address] [place] [address] Dr. Ekta FunkUrea nitrogen/Creatinine [Mass ratio]21.2 mg/mgNoCrystal Clinic Orthopedic CenterComment on above:Performed By: #### B12FOL, VITAD, IRON #### [facility] [address] [place] [address] Dr. Ekta Vaughan 75-33-2086Jwbavixhshj peptide B (Bld) [Mass/Vol]507.0 pg/mL Normal<=900.0The [facility] HospitalComment on above:Performed By: #### B12FOL, VITAD, IRON #### [facility] [address] [address] [address] Ekta Agarwal AUTO DIFFon [id number] #0.0 103/ulNormal0.0-0.1The [facility] HospitalComment on above:Performed By: #### CBC #### [facility] [address] [place] [address] Dr. Ekta FunkBasophils/100 WBC (Bld)0.2 %Normal0.2-2.0The [facility] Comment on above:Performed By: #### CBC #### [facility] [address] [place] [address] Dr. Ekta Anthony #0.1 103/ulNormal0.0-0.7The [facility] HospitalComment on above: Performed By: #### CBC #### [facility] [address] [place] [address] Dr. Ekta Abebeosinophils/100 WBC (Bld)1.1 %Normal0.9-7.0The [facility] Comment on above:Performed By: #### CBC #### [facility] [address] [place] [address] Dr. Ekta Abeberythrocyte distribution width (RBC) [Ratio]12.8 %Ecisfp79.0-15.0 The [facility] HospitalComment on above:Performed By: #### CBC #### [facility] [address] [place] [address] Dr. Ekta FunkHematocrit (Bld) [Volume fraction]37.1 %Vblieg29.0-48.0The [facility] HospitalComment on above:Performed By: #### CBC #### [facility] [address] [place] [address] Dr. Ekta FunkHemoglobin (Bld) [Mass/Vol]13.0 g/wOZmkbrq84.0-16.0The [facility] HospitalComment on above:Performed By: #### CBC #### [facility] [address] [address] [address] Ekta Olivares #0.11 10e3/ulCritically high0.00-0.03The [facility] Comment on above:Performed By: #### CBC #### [facility] [address] [address] [address] Ekta Olivares %1.1 %Critically high0.0-0.5The [facility] HospitalComment on above:Performed By: #### CBC #### [facility] [address] [address] [address] Ekta Putnam #1.6 103/ulNormal1.2-3.8The [facility] HospitalComment on above:Performed By: #### CBC #### [facility] [address] [place] [address] Dr. Ekta Lundberghocytes/100 WBC (Bld)15.6 %Critically low20.5-60.0The [facility] HospitalComment on above:Performed By: #### CBC #### [facility] [address] [address] [address] Ekta MaloneUAL DIFF REQNONormalThe [facility] HospitalComment on above: Performed By: #### CBC #### [facility] [address] [place] [address] Dr. Ekta Oconnor (RBC) [Entitic mass]32.8 qvCmzirk36.7-34.0The [facility] Incment on above:Performed By: #### CBC #### [facility] [address] [place] [address] Dr. Ekta Oconnor (RBC) [Mass/Vol]35.0 g/nPGalqxt22.9-35.2The [facility] on above:Performed By: #### CBC #### [facility] [address] [place] [address] Dr. Ekta Oconnor (RBC) [Entitic vol]93.7 hXPdubiq57.0-99.0The [facility] HospitalComment on above:Performed By: #### CBC #### [facility] [address] [address] [address] Ekta Rivas #0.9 103/ulCritically high0.3-0.8ThPark[facility] Health [facility] Comment on above:Performed By: #### CBC #### [facility] [address] [address] [address] Ekta Perkinsocytes/100 WBC (Bld)8.3 %Normal1.7-12.0[facility] Comment on above:Performed By: #### CBC #### [facility] [address] [address] [address] Ekta Salazar #7.5 103/ulCritically high1.4-6.5ThPark[facility] Health [facility] Comment on above:Performed By: #### CBC #### [facility] [address] [place] [address] Dr. Ekta Dimasutrophils/100 WBC (Bld)73.7 %Fxwcuy85.0-75.0The [facility] HospitalComment on above:Performed By: #### CBC #### [facility] [address] [address] [address] Ekta Salomonlet mean volume (Bld) [Entitic vol]10.3 fLNormal9.5-13.5ThParkview Health Bryan HospitalComment on above:Performed By: #### CBC #### [facility] [address] [address] [address] Ekta FunkPLT135 103/ulCritically dwy929-816Oxk [facility] HospitalComment on above:Performed By: #### CBC #### [facility] [address] [address] [address] Ekta FunkRBC3.96 106/ulCritically low4.20-5.40The [facility] HospitalComhills & [facility] on above:Performed By: #### CBC #### [facility] [address] [address] [address] Ekta FunkWBC10.2 103/ulNormal4.0-11.0The [facility] HospitalComment on above:Performed By: #### CBC #### [facility] [address] [place] [address] Dr. Ekta Pal 14(COMP METB)on [id number] [Mass/Vol]2.7 g/dL Critically low3.4-5.0The [facility] HospitalComment on above:Performed By: #### B12FOL, VITAD, IRON #### [facility] [address] [place] [address] Dr. Ekta FunkAlbumin/Globulin [Mass ratio]0.8 {ratio}NormalThe [facility] HospitalComment on above:Performed By: #### B12FOL, VITAD, IRON #### [facility] [address] [place] [address] Dr. Ekta Cowart [Catalytic activity/Vol]74 U/MQmrngf33-102Diw [facility], Incment on above:Performed By: #### B12FOL, VITAD, IRON #### [facility] [address] [place] [address] Dr. Ekta Mccormick [Catalytic activity/Vol]26 U/PXfoiqc76-42Zlu [facility] Incment on above:Performed By: #### B12FOL, VITAD, IRON #### [facility] [address] [place] [address] Dr. Ekta Harrison gap [Moles/Vol]16.5 mmol/LNormalThe [facility] Comment on above:Performed By: #### B12FOL, VITAD, IRON #### [facility] [address] [place] [address] Dr. Ekta Gonzalez [Catalytic activity/Vol]15 U/ZBzvllu32-69Ixv [facility] Incment on above:Performed By: #### B12FOL, VITAD, IRON #### [facility] [address] [place] [address] Dr. Ekta FunkBilirubin [Mass/Vol]0.4 mg/dLNormal0.2-1.0The [facility] Comment on above:Performed By: #### B12FOL, VITAD, IRON #### [facility] [address] [address] [address] Ekta FunkCalcium [Mass/Vol]8.1 mg/dLCritically low8.5-10.1The [facility] HospitalComment on above:Performed By: #### B12FOL, VITAD, IRON #### [facility] [address] [address] [address] Ekta FunkChloride [Moles/Vol]96 mmol/LCritically eyz89-195Tqc [facility] HospitalComment on above:Performed By: #### B12FOL, VITAD, IRON #### [facility] [address] [place] [address] Dr. Ekta FunkCO2 [Moles/Vol]26.1 mmol/BSsyxwy45.0-32.0The [facility] Comment on above:Performed By: #### B12FOL, VITAD, IRON #### [facility] [address] [place] [address] Dr. Ekta FunkCreatinine [Mass/Vol]3.28 mg/dLCritically high0.55-1.02The [facility] HospitalComment on above:Performed By: #### B12FOL, VITAD, IRON #### [facility] [address] [place] [address] Dr. Ekta AbebeGFR-AF RDTOZYKV90 mL/min/1.39i6Yozdxofevy low>=60The [facility] HospitalComment on above:Performed By: #### B12FOL, VITAD, IRON #### [facility] [address] [place] [address] Dr. Ekta AbebeGFR-NON AF BQNOYGBD66 mL/min/1.12p5Ywcaaktosn low>=60The [facility] HospitalComment on above:Performed By: #### B12FOL, VITAD, IRON #### [facility] [address] [place] [address] Dr. Ekta FunkGlobulin (S) [Mass/Vol]3.6 g/dLNormalThe [facility] HospitalComment on above:Performed By: #### B12FOL, VITAD, IRON #### [facility] [address] [address] [address] Ekta FunkGlucose [Mass/Vol]132 mg/dLCritically ycxd32-511Jpt [facility] HospitalComment on above:Performed By: #### B12FOL, VITAD, IRON #### [facility] [address] [place] [address] Dr. Ekta FunkPotassium [Moles/Vol]4.6 mmol/LNormal3.5-5.1The [facility] Comment on above:Performed By: #### B12FOL, VITAD, IRON #### [facility] [address] [place] [address] Dr. Ekta FunkProtein [Mass/Vol]6.3 g/dLCritically low6.4-8.2The [facility] HospitalComment on above:Performed By: #### B12FOL, VITAD, IRON #### [facility] [address] [place] [address] Dr. Ekta FunkSodium [Moles/Vol]134 mmol/LCritically fsd047-568Mbo [facility] HospitalComment on above:Performed By: #### B12FOL, VITAD, IRON #### [facility] [address] [place] [address] Dr. Ekta FunkUrea nitrogen [Mass/Vol]74.0 mg/dLCritically high7.0-18.0The [facility] HospitalComment on above:Performed By: #### B12FOL, VITAD, IRON #### [facility] [address] [place] [address] Dr. Ekta Spring nitrogen/Creatinine [Mass ratio]22.6 mg/mgNormalThe [facility] HospitalComment on above:Performed By: #### B12FOL, VITAD, IRON #### [facility] [address] [place] [address] Dr. Ekta Vaughan 87-47-0228Czduagsojwk peptide B (Bld) [Mass/Vol]1411.0 pg/mLCritically high<=900.0The [facility] HospitalComment on above:Performed By: #### B12FOL, VITAD, IRON #### [facility] [address] [place] [address] Dr. Ekta Agarwal AUTO DIFFon [id number] #0.0 103/ulNormal0.0-0.1The [facility] Incment on above:Performed By: #### B12FOL, VITAD, IRON #### [facility] [address] [place] [address] Dr. Ekta FunkBasophils/100 WBC (Bld)0.3 %Normal0.2-2.0The [facility] Comment on above:Performed By: #### B12FOL, VITAD, IRON #### [facility] [address] [place] [address] Dr. Ekta Anthony #0.1 103/ulNormal0.0-0.7The [facility] Incment on above: Performed By: #### B12FOL, VITAD, IRON #### [facility] [address] [place] [address] Dr. Ekta Abebeosinophils/100 WBC (Bld)0.6 %Critically low0.9-7.0The [facility] HospitalComment on above:Performed By: #### B12FOL, VITAD, IRON #### [facility] [address] [place] [address] Dr. Ekta Abeberythrocyte distribution width (RBC) [Ratio]12.9 %Mkkeny70.0-15.0 The [facility] Incment on above:Performed By: #### B12FOL, VITAD, IRON #### [facility] [address] [place] [address] Dr. Ekta FunkHematocrit (Bld) [Volume fraction]40.8 %Pcmtet78.0-48.0The [facility] HospitalComment on above:Performed By: #### B12FOL, VITAD, IRON #### [facility] [address] [place] [address] Dr. Ekta FunkHemoglobin (Bld) [Mass/Vol]14.0 g/wXSerwzh19.0-16.0The [facility] HospitalComment on above:Performed By: #### B12FOL, VITAD, IRON #### [facility] [address] [place] [address] Dr. Ekta Olivares #0.09 10e3/ulCritically high0.00-0.03The [facility] Comment on above:Performed By: #### B12FOL, VITAD, IRON #### [facility] [address] [place] [address] Dr. Ekta Olivares %0.8 %Critically high0.0-0.5The [facility] HospitalComment on above:Performed By: #### B12FOL, VITAD, IRON #### [facility] [address] [place] [address] Dr. Ekta Putnam #1.8 103/ulNormal1.2-3.8The [facility] HospitalComment on above:Performed By: #### B12FOL, VITAD, IRON #### [facility] [address] [place] [address] Dr. Ekta Lundberghocytes/100 WBC (Bld)16.2 %Critically low20.5-60.0The [facility] HospitalComment on above:Performed By: #### B12FOL, VITAD, IRON #### [facility] [address] [place] [address] Dr. Ekta Beckham DIFF REQNONormalThe [facility] HospitalComment on above: Performed By: #### B12FOL, VITAD, IRON #### [facility] [address] [place] [address] Dr. Ekta Oconnor (RBC) [Entitic mass]32.3 noNhfytm75.7-34.0The [facility] HospitalComment on above:Performed By: #### B12FOL, VITAD, IRON #### [facility] [address] [place] [address] Dr. Ekta Oconnor (RBC) [Mass/Vol]34.3 g/nVGmiwbp83.9-35.2The [facility] HospitalComment on above:Performed By: #### B12FOL, VITAD, IRON #### [facility] [address] [place] [address] Dr. Ekta Estevez (RBC) [Entitic vol]94.2 cOArwiqr50.0-99.0The [facility] HospitalComment on above:Performed By: #### B12FOL, VITAD, IRON #### [facility] [address] [place] [address] Dr. Ekta Rivas #0.8 103/ulNormal0.3-0.8The [facility] HospitalComment on above:Performed By: #### B12FOL, VITAD, IRON #### [facility] [address] [place] [address] Dr. Ekta Perkinsocytes/100 WBC (Bld)7.3 %Normal1.7-12.0The [facility] Comment on above:Performed By: #### B12FOL, VITAD, IRON #### [facility] [address] [place] [address] Dr. Ekta Salazar #8.1 103/ulCritically high1.4-6.5The [facility] Comment on above:Performed By: #### B12FOL, VITAD, IRON #### [facility] [address] [place] [address] Dr. Ekta Dimasutrophils/100 WBC (Bld)74.8 %Wwnvqv33.0-75.0The [facility] HospitalComment on above:Performed By: #### B12FOL, VITAD, IRON #### [facility] [address] [place] [address] Dr. Ekta Trevino mean volume (Bld) [Entitic vol]9.8 fLNormal9.5-13.5The [facility] HospitalComment on above:Performed By: #### B12FOL, VITAD, IRON #### [facility] [address] [place] [address] Dr. Ekta DriverT226 103/nuTkcbmj115-556Sll [facility] HospitalComment on above: Performed By: #### B12FOL, VITAD, IRON #### [facility] [address] [place] [address] Dr. Ekta FunkRBC4.33 106/ulNormal4.20-5.40The [facility] HospitalComment on above:Performed By: #### B12FOL, VITAD, IRON #### [facility] [address] [place] [address] Dr. Ekta FunkWBC10.9 103/ulNormal4.0-11.0The [facility] HospitalComment on above:Performed By: #### B12FOL, VITAD, IRON #### [facility] [address] [place] [address] Dr. Ekta FunkPROF 14(COMP METB)on 48-40-9508Giitlcx [Mass/Vol]3.1 g/dL Critically low3.4-5.0The [facility] HospitalComment on above:Performed By: #### B12FOL, VITAD, IRON #### [facility] [address] [place] [address] Dr. Ekta FunkAlbumin/Globulin [Mass ratio]0.7 {ratio}NormalThe [facility] HospitalComment on above:Performed By: #### B12FOL, VITAD, IRON #### [facility] [address] [place] [address] Dr. Ekta Cowart [Catalytic activity/Vol]81 U/SDzwqmo11-378Rpl [facility] HospitalComment on above:Performed By: #### B12FOL, VITAD, IRON #### [facility] [address] [place] [address] Dr. Ekta Mccormick [Catalytic activity/Vol]30 U/NJskgns51-21Gra [facility], Incment on above:Performed By: #### B12FOL, VITAD, IRON #### [facility] [address] [place] [address] Dr. Ekta Harrison gap [Moles/Vol]17.3 mmol/LNormalThe [facility] on above:Performed By: #### B12FOL, VITAD, IRON #### [facility] [address] [place] [address] Dr. Yilan ChangAST [Catalytic activity/Vol]11 U/LCritically vyv46-60Jdo [facility] HospitalComment on above:Performed By: #### B12FOL, VITAD, IRON #### [facility] [address] [address] [address] Ekta FunkBilirubin [Mass/Vol]0.5 mg/dLNormal0.2-1.0[facility] Comment on above:Performed By: #### B12FOL, VITAD, IRON #### [facility] [address] [address] [address] Ekta FunkCalcium [Mass/Vol]8.6 mg/dLNormal8.5-10.1The [facility] Comment on above:Performed By: #### B12FOL, VITAD, IRON #### [facility] [address] [place] [address] Dr. Ekta FunkChloride [Moles/Vol]95 mmol/LCritically qbo01-104Wgk [facility] HospitalComment on above:Performed By: #### B12FOL, VITAD, IRON #### [facility] [address] [address] [address] Ekta FunkCO2 [Moles/Vol]27.3 mmol/FLlsykj69.0-32.0The [facility] Comment on above:Performed By: #### B12FOL, VITAD, IRON #### [facility] [address] [place] [address] Dr. Ekta FunkCreatinine [Mass/Vol]3.17 mg/dLCritically high0.55-1.02The [facility] HospitalComment on above:Performed By: #### B12FOL, VITAD, IRON #### [facility] [address] [address] [address] Ekta AbebeGFR-AF MDOTMRSD32 mL/min/1.67j5Uavssoufhf low>=60The [facility] HospitalComment on above:Performed By: #### B12FOL, VITAD, IRON #### [facility] [address] [address] [address] Ekta AbebeGFR-NON AF TBGTJVBW92 mL/min/1.33m5Wrdvlivrpd low>=60The [facility] HospitalComment on above:Performed By: #### B12FOL, VITAD, IRON #### [facility] [address] [address] [address] Ekta FunkGlobulin (S) [Mass/Vol]4.6 g/dLNormSelect Medical Specialty Hospital - Southeast OhioComment on above:Performed By: #### B12FOL, VITAD, IRON #### [facility] [address] [place] [address] Dr. Ekta FunkGlucose [Mass/Vol]139 mg/dLCritically ckxu16-472Pra [facility] HospitalComment on above:Performed By: #### B12FOL, VITAD, IRON #### [facility] [address] [place] [address] Dr. Ekta FunkPotassium [Moles/Vol]4.6 mmol/LNormal3.5-5.1The [facility] Comment on above:Performed By: #### B12FOL, VITAD, IRON #### [facility] [address] [place] [address] Dr. Ekta FunkProtein [Mass/Vol]7.7 g/dLNormal6.4-8.2The [facility] Comment on above:Performed By: #### B12FOL, VITAD, IRON #### [facility] [address] [place] [address] Dr. Ekta FunkSodium [Moles/Vol]135 mmol/LCritically uha407-455Vjl [facility] HospitalComment on above:Performed By: #### B12FOL, VITAD, IRON #### [facility] [address] [place] [address] Dr. Ekta FunkUrea nitrogen [Mass/Vol]73.0 mg/dLCritically high7.0-18.0The [facility] HospitalComment on above:Performed By: #### B12FOL, VITAD, IRON #### [facility] [address] [place] [address] Dr. Ekta FunkUrea nitrogen/Creatinine [Mass ratio]23.0 mg/mgNoCrystal Clinic Orthopedic CenterComment on above:Performed By: #### B12FOL, VITAD, IRON #### [facility] [address] [address] [address] Ekta Vaughan 55-96-1122Dsfnmonrxpc peptide B (Bld) [Mass/Vol]2007.0 pg/mLCritically high<=900.0The [facility] HospitalComment on above:Performed By: #### CMP #### [facility] [address] [address] [address] Ekta Agarwal AUTO DIFFon [id number] #0.0 103/ulNormal0.0-0.1The [facility] HospitalComment on above:Performed By: #### CBC #### [facility] [address] [place] [address] Dr. Ekta FunkBasophils/100 WBC (Bld)0.2 %Normal0.2-2.0The [facility] Comment on above:Performed By: #### CBC #### [facility] [address] [place] [address] Dr. Ekta Anthony #0.1 103/ulNormal0.0-0.7The [facility] HospitalComment on above: Performed By: #### CBC #### [facility] [address] [place] [address] Dr. Ekta Abebeosinophils/100 WBC (Bld)0.9 %Normal0.9-7.0The [facility] Comment on above:Performed By: #### CBC #### [facility] [address] [place] [address] Dr. Ekta Abeberythrocyte distribution width (RBC) [Ratio]12.8 %Huylgn54.0-15.0 The [facility] HospitalComment on above:Performed By: #### CBC #### [facility] [address] [place] [address] Dr. Ekta FunkHematocrit (Bld) [Volume fraction]38.8 %Mxzjqd11.0-48.0The [facility] HospitalComment on above:Performed By: #### CBC #### [facility] [address] [address] [address] Ekta FunkHemoglobin (Bld) [Mass/Vol]13.3 g/qOTvmshv98.0-16.0The [facility] HospitalComment on above:Performed By: #### CBC #### [facility] [address] [address] [address] Ekta Olivares #0.08 10e3/ulCritically high0.00-0.03The [facility] Comment on above:Performed By: #### CBC #### [facility] [address] [place] [address] Dr. Ekta Olivares %0.8 %Critically high0.0-0.5The [facility] HospitalComment on above:Performed By: #### CBC #### [facility] [address] [place] [address] Dr. Ekta Putnam #1.7 103/ulNormal1.2-3.8The [facility] HospitalComment on above:Performed By: #### CBC #### [facility] [address] [place] [address] Dr. Ekta Lundberghocytes/100 WBC (Bld)17.3 %Critically low20.5-60.0The [facility] HospitalComment on above:Performed By: #### CBC #### [facility] [address] [place] [address] Dr. Ekta MaloneUAL DIFF REQNONormalThe [facility] HospitalComment on above: Performed By: #### CBC #### [facility] [address] [place] [address] Dr. Ekta Oconnor (RBC) [Entitic mass]32.1 uaZrttow79.7-34.0The [facility] HospitalComment on above:Performed By: #### CBC #### [facility] [address] [place] [address] Dr. Ekta Oconnor (RBC) [Mass/Vol]34.3 g/sVDnrmbn64.9-35.2The [facility] HospitalComment on above:Performed By: #### CBC #### [facility] [address] [place] [address] Dr. Ekta OconnorV (RBC) [Entitic vol]93.7 iGOwsvrn60.0-99.0The [facility], Incment on above:Performed By: #### CBC #### [facility] [address] [place] [address] Dr. Ekta Rivas #0.6 103/ulNormal0.3-0.8The [facility] HospitalComment on above:Performed By: #### CBC #### [facility] [address] [place] [address] Dr. Ekta Perkinsocytes/100 WBC (Bld)6.4 %Normal1.7-12.0The [facility] Comment on above:Performed By: #### CBC #### [facility] [address] [place] [address] Dr. Ekta Salazar #7.4 103/ulCritically high1.4-6.5The [facility] Comment on above:Performed By: #### CBC #### [facility] [address] [place] [address] Dr. Ekta Dimasutrophils/100 WBC (Bld)74.4 %Mysaxe93.0-75.0The [facility] HospitalComment on above:Performed By: #### CBC #### [facility] [address] [place] [address] Dr. Ekta Salomonlet mean volume (Bld) [Entitic vol]9.8 fLNormal9.5-13.5The [facility] HospitalComment on above:Performed By: #### CBC #### [facility] [address] [place] [address] Dr. Ekta FunkPLT193 103/xuPxcekx595-577Huc [facility] HospitalComment on above: Performed By: #### CBC #### [facility] [address] [place] [address] Dr. Ekta FunkRBC4.14 106/ulCritically low4.20-5.40The [facility] HospitalComment on above:Performed By: #### CBC #### [facility] [address] [address] [address] Ekta FunkWBC9.9 103/ulNormal4.0-11.0The [facility] HospitalComment on above: Performed By: #### CBC #### [facility] [address] [address] [address] Ekta FunkPROF 14(COMP METB)on 55-28-1932Ggzzyxb [Mass/Vol]3.2 g/dL Critically low3.4-5.0The [facility] HospitalComment on above:Performed By: #### INSULIN #### [facility] [address] [place] [address] Dr. Ekta FunkAlbumin/Globulin [Mass ratio]0.8 {ratio}NormalThe [facility] HospitalComment on above:Performed By: #### INSULIN #### [facility] [address] [place] [address] Dr. Ekta AlcantaraP [Catalytic activity/Vol]82 U/XIctxdj07-715Qrv [facility] HospitalComment on above:Performed By: #### INSULIN #### [facility] [address] [place] [address] Dr. Ekta Mccormick [Catalytic activity/Vol]38 U/XCqektv45-32Zdh [facility] HospitalComment on above:Performed By: #### INSULIN #### [facility] [address] [place] [address] Dr. Ekta Harrison gap [Moles/Vol]19.1 mmol/LNormalThe [facility] Comment on above:Performed By: #### INSULIN #### [facility] [address] [place] [address] Dr. Ekta FunkAST [Catalytic activity/Vol]19 U/UAmylio79-35Amg [facility] HospitalComment on above:Performed By: #### INSULIN #### [facility] [address] [place] [address] Dr. Ekta FunkBilirubin [Mass/Vol]0.4 mg/dLNormal0.2-1.0The [facility] Comment on above:Performed By: #### INSULIN #### [facility] [address] [address] [address] Ekta FunkCalcium [Mass/Vol]9.2 mg/dLNormal8.5-10.1The [facility] Comment on above:Performed By: #### INSULIN #### [facility] [address] [address] [address] Ekta FunkChloride [Moles/Vol]98 mmol/GKhkkxj82-726Myr [facility] Comment on above:Performed By: #### INSULIN #### [facility] [address] [address] [address] Ekta FunkCO2 [Moles/Vol]26.4 mmol/RLrxlfj67.0-32.0The [facility] Comment on above:Performed By: #### INSULIN #### [facility] [address] [address] [address] Ekta FunkCreatinine [Mass/Vol]2.20 mg/dLCritically high0.55-1.02The [facility] HospitalComment on above:Performed By: #### INSULIN #### [facility] [address] [address] [address] Dash ChangEGFR-AF TLRUCLTJ62 mL/min/1.80h1Zzwnuiuscg low>=60The [facility] HospitalComment on above:Performed By: #### INSULIN #### [facility] [address] [address] [address] Ekta AbebeGFR-NON AF BIELRLAA11 mL/min/1.74a6Cgwbcccdlm low>=60The [facility] HospitalComment on above:Performed By: #### INSULIN #### [facility] [address] [address] [address] Ekta FunkGlobulin (S) [Mass/Vol]3.8 g/dLNormalThe [facility] HospitalComment on above:Performed By: #### INSULIN #### [facility] [address] [address] [address] Ekta FunkGlucose [Mass/Vol]142 mg/dLCritically uror51-827Typ [facility] HospitalComment on above:Performed By: #### INSULIN #### [facility] [address] [address] [address] Ekta FunkPotassium [Moles/Vol]4.5 mmol/LNormal3.5-5.1The [facility] Comment on above:Performed By: #### INSULIN #### [facility] [address] [address] [address] Ekta FunkProtein [Mass/Vol]7.0 g/dLNormal6.4-8.2The [facility] Comment on above:Performed By: #### INSULIN #### [facility] [address] [address] [address] Ekta FunkSodium [Moles/Vol]139 mmol/FNulfii681-470Ikb [facility] Comment on above:Performed By: #### INSULIN #### [facility] [address] [address] [address] Ekta FunkUrea nitrogen [Mass/Vol]57.0 mg/dLCritically high7.0-18.0The [facility] HospitalComment on above:Performed By: #### INSULIN #### [facility] [address] [address] [address] Ekta FunkUrea nitrogen/Creatinine [Mass ratio]25.9 mg/mgNormalThe [facility] HospitalComment on above:Performed By: #### INSULIN #### [facility] [address] [address] [address] Ekta FunkT3, TOTAL (TRIIODOTHYRONINE)on 85-12-5285F6, TOTAL63 ng/dL Critically yyc46-411Wba [facility] HospitalComment on above:Performed By: #### CMP #### [facility] [address] [address] [address] Ekta FunkXR ABD FLAT_UPon [id number] ABD FLAT_UPEXAMINATION: XR ABD FLAT_UP HISTORY: Generalized abdominal pain , shortness of breath COMPARISON: No relevant comparison available. FINDINGS: BOWEL GAS PATTERN: Non-obstructed. FREE AIR: None. CALCIFICATIONS: None significant. BONES: Mild left convex curvature lumbar spine. No appreciable fracture. OTHER: Negative. IMPRESSION: 1. Normal bowel gas pattern. No suspicious abdominal findings. Electronically authenticated by: DANIEL PINEDA Date: 2022-10-21 11:42[facility]XR [facility] 2 Von [id number] CHEST 2 VEXAM: XR CHEST 2 V, [...] Electronically authenticated by: CHRISTIANO MORALES Date: 2022-10-21 11:23[facility] HospitalBNPon 15-21-3212Ojgporgdxfi peptide B (Bld) [Mass/Vol]2512.0 pg/mLCritically high<=900.0The [facility] HospitalComment on above:Performed By: #### B12FOL, VITAD, IRON #### [facility] [address] [address] [address] Ekta Hale BRITTANIE ADMITon [id number] [Catalytic activity/Vol]35 U/L Yzfmll31-533TgiFirelands Regional Medical Center South CampusComment on above:Performed By: #### B12FOL, VITAD, IRON #### [facility] [address] [address] [address] Ekta Howell.MB [Mass/Vol]0.64 ng/mLNormal<=3.60[facility] Comment on above:Performed By: #### B12FOL, VITAD, IRON #### [facility] [address] [address] [address] Ekta Carlisle28.1 pg/mLNormal4.0-51.3The [facility] HospitalComment on above:Result Comment: CUT-OFF POINTS HAVE BEEN ESTABLISHED BASED ON THE FOURTH UNIVERSAL DEFINITIONS OF MYOCARDIAL INFARCTION. THE UPPER REFERENCE LIMIT (URL) OF TROPONIN, DEFINED THE 99TH PERCENTILE OF cTnI DISTRIBUTION IN A REFERENCE POPULATION, HAS BEEN CONFIRMED THE DECISION THRESHOLD FOR [place] DIAGNOSIS.Performed By: #### B12FOL, VITAD, IRON #### [facility] [address] [place] [address] Dr. Ekta FunkMYO57 ng/mLNormal9-82The [facility] HospitalComment on above: Performed By: #### B12FOL, VITAD, IRON #### [facility] [address] [place] [address] Dr. Ekta Agarwal AUTO DIFFon [id number] #0.0 103/ulNormal0.0-0.1The [facility] HospitalComment on above:Performed By: #### CBC #### [facility] [address] [place] [address] Dr. Ekta FunkBasophils/100 WBC (Bld)0.2 %Normal0.2-2.0[facility] Comment on above:Performed By: #### CBC #### [facility] [address] [place] [address] Dr. Ekta Anthony #0.2 103/ulNormal0.0-0.7The [facility] HospitalComment on above: Performed By: #### CBC #### [facility] [address] [place] [address] Dr. Ekta Abebeosinophils/100 WBC (Bld)1.4 %Normal0.9-7.0[facility] Comment on above:Performed By: #### CBC #### [facility] [address] [place] [address] Dr. Ekta Abeberythrocyte distribution width (RBC) [Ratio]12.9 %Muqavn25.0-15.0 [facility] CampusComment on above:Performed By: #### CBC #### [facility] [address] [place] [address] Dr. Ekta FunkHematocrit (Bld) [Volume fraction]34.7 %Critically low36.0-48.0 The [facility] HospitalComment on above:Performed By: #### CBC #### [facility] [address] [place] [address] Dr. Yilan ChangHemoglobin (Bld) [Mass/Vol]11.8 g/dLCritically low12.0-16.0The [facility] HospitalComment on above:Performed By: #### CBC #### [facility] [address] [place] [address] Dr. kEta Olivares #0.09 10e3/ulCritically high0.00-0.03The [facility] Comment on above:Performed By: #### CBC #### [facility] [address] [place] [address] Dr. Ekta Olivares %0.8 %Critically high0.0-0.5The [facility] HospitalComment on above:Performed By: #### CBC #### [facility] [address] [place] [address] Dr. Ekta Putnam #1.9 103/ulNormal1.2-3.8The [facility] HospitalComment on above:Performed By: #### CBC #### [facility] [address] [place] [address] Dr. Ekta Lundberghocytes/100 WBC (Bld)16.1 %Critically low20.5-60.0The [facility] HospitalComment on above:Performed By: #### CBC #### [facility] [address] [place] [address] Dr. Ekta Beckham DIFF REQNONormalThe [facility] HospitalComment on above: Performed By: #### CBC #### [facility] [address] [place] [address] Dr. Ekta Frye (RBC) [Entitic mass]32.6 ciGchpuq06.7-34.0The [facility] HospitalComment on above:Performed By: #### CBC #### [facility] [address] [place] [address] Dr. Ekta Oconnor (RBC) [Mass/Vol]34.0 g/gLTwyzbv22.9-35.2The [facility] HospitalComment on above:Performed By: #### CBC #### [facility] [address] [place] [address] Dr. Ekta OconnorV (RBC) [Entitic vol]95.9 cPVfdxys62.0-99.0The [facility] HospitalComment on above:Performed By: #### CBC #### [facility] [address] [place] [address] Dr. Ekta Rivas #0.8 103/ulNormal0.3-0.8The [facility] HospitalComment on above:Performed By: #### CBC #### [facility] [address] [place] [address] Dr. Ekta Perkinsocytes/100 WBC (Bld)7.0 %Normal1.7-12.0The [facility] Comment on above:Performed By: #### CBC #### [facility] [address] [place] [address] Dr. Ekta Salazar #8.8 103/ulCritically high1.4-6.5The [facility] Comment on above:Performed By: #### CBC #### [facility] [address] [place] [address] Dr. Ekta Dimasutrophils/100 WBC (Bld)74.5 %Eninxp15.0-75.0The [facility] HospitalComment on above:Performed By: #### CBC #### [facility] [address] [place] [address] Dr. Ekta Trevino mean volume (Bld) [Entitic vol]9.8 fLNormal9.5-13.5The [facility] HospitalComment on above:Performed By: #### CBC #### [facility] [address] [place] [address] Dr. Ekta FunkPLT203 103/acEsjjoo635-703Lav [facility] HospitalComment on above: Performed By: #### CBC #### [facility] [address] [place] [address] Dr. Ekta FunkRBC3.62 106/ulCritically low4.20-5.40The [facility] HospitalComment on above:Performed By: #### CBC #### [facility] [address] [place] [address] Dr. Ekta FunkWBC11.8 103/ulCritically high4.0-11.0The [facility] HospitalComment on above:Performed By: #### CBC #### [facility] [address] [address] [address] Ekta FunkCULTURE URINEon [id number] URINECulture Observations: NO GROWTH.NormalThe [facility] HospitalComment on above:Performed By: #### INSULIN #### [facility] [address] [address] [address] Ekta FunkCovid-19 PCR ([facility]ED[facility])on 67-60-6050ZRTS-CoV-2 (COVID-19) RNA GANESH+probe Ql (Unsp spec)Not detectedNormalNOT DETECTEDThe [facility] Comment on above:Result Comment: When diagnostic [...] for this test is supported by the [place] of [employer] and Human Service's declaration that [...] used).Performed By: #### B12FOL, VITAD, IRON #### [facility] [address] [address] [address] Ekta AbebeCHOCARDIO M/2D COMPLETEon [id number] M/2D COMPLETE Patient: SHEILA MAC Exam Date: 10/20/2022 : 1950 Gender:F Ordering : DR KRZYSZTOF THOMPSON . Admission #: [id number] Family : Order #: [id number] CLICK HERE TO VIEW EXAM ECHOCARDIOGRAM REPORT [...] by: Sylwia Mckay M.D. on 10/20/2022 at 14:57[facility]PR[facility](COMP METB)on 80-62-1660Cvbypvq [Mass/Vol]2.8 g/dLCritically low 3.4-5.0The [facility] HospitalComment on above:Performed By: #### B12FOL, VITAD, IRON #### [facility] [address] [place] [address] Dr. Ekta FunkAlbumin/Globulin [Mass ratio]0.7 {ratio}NormalThe [facility] HospitalComment on above:Performed By: #### B12FOL, VITAD, IRON #### [facility] [address] [address] [address] Ekta Cowart [Catalytic activity/Vol]84 U/ONefpig79-390Qls [facility] on above:Performed By: #### B12FOL, VITAD, IRON #### [facility] [address] [address] [address] Ekta Mccormick [Catalytic activity/Vol]29 U/IFqvees49-33Cyd [facility], Incment on above:Performed By: #### B12FOL, VITAD, IRON #### [facility] [address] [address] [address] Ekta Mcleodon gap [Moles/Vol]15.9 mmol/LNormalFirelands [facility] Comment on above:Performed By: #### B12FOL, VITAD, IRON #### [facility] [address] [place] [address] Dr. Ekta FunkAST [Catalytic activity/Vol]15 U/FBncahf04-02WhyFirelands Regional Medical Center South CampusComment on above:Performed By: #### B12FOL, VITAD, IRON #### [facility] [address] [place] [address] Dr. Ekta FunkBilirubin [Mass/Vol]0.3 mg/dLNormal0.2-1.0[facility] Comment on above:Performed By: #### B12FOL, VITAD, IRON #### [facility] [address] [place] [address] Dr. Ekta FunkCalcium [Mass/Vol]8.9 mg/dLNormal8.5-10.1[facility] Comment on above:Performed By: #### B12FOL, VITAD, IRON #### [facility] [address] [place] [address] Dr. Ekta FunkChloride [Moles/Vol]103 mmol/EQisbnh50-536PyjFirelands Regional Medical Center South Campus Comment on above:Performed By: #### B12FOL, VITAD, IRON #### [facility] [address] [place] [address] Dr. Ekta FunkCO2 [Moles/Vol]26.3 mmol/AOkcxaj65.0-32.0[facility] Comment on above:Performed By: #### B12FOL, VITAD, IRON #### [facility] [address] [place] [address] Dr. Ekta FunkCreatinine [Mass/Vol]1.99 mg/dLCritically high0.55-1.02The [facility] HospitalComment on above:Performed By: #### B12FOL, VITAD, IRON #### [facility] [address] [place] [address] Dr. Ekta AbebeGFR-AF JQHRKXPC00 mL/min/1.80n8Jvbhozuzmx low>=60The [facility] HospitalComment on above:Performed By: #### B12FOL, VITAD, IRON #### [facility] [address] [place] [address] Dr. Ekta AbebeGFR-NON AF LQYNRUBX39 mL/min/1.13j6Xoihjgbfxb low>=60The [facility] HospitalComment on above:Performed By: #### B12FOL, VITAD, IRON #### [facility] [address] [place] [address] Dr. Ekta FunkGlobulin (S) [Mass/Vol]4.1 g/dLNormalThe [facility] HospitalComment on above:Performed By: #### B12FOL, VITAD, IRON #### [facility] [address] [place] [address] Dr. Ekta FunkGlucose [Mass/Vol]115 mg/dLCritically ncmc98-689PbqFirelands Regional Medical Center South CampusComment on above:Performed By: #### B12FOL, VITAD, IRON #### [facility] [address] [place] [address] Dr. Ekta FunkPotassium [Moles/Vol]5.2 mmol/LCritically high3.5-5.1[facility] CampusComment on above:Performed By: #### B12FOL, VITAD, IRON #### [facility] [address] [place] [address] Dr. Ekta FunkProtein [Mass/Vol]6.9 g/dLNormal6.4-8.2[facility] Comment on above:Performed By: #### B12FOL, VITAD, IRON #### [facility] [address] [place] [address] Dr. Ekta FunkSodium [Moles/Vol]140 mmol/QAuqzpx294-038PqaFirelands Regional Medical Center South Campus Comment on above:Performed By: #### B12FOL, VITAD, IRON #### [facility] [address] [address] [address] Ekta Spring nitrogen [Mass/Vol]45.0 mg/dLCritically high7.0-18.0The [facility] HospitalComment on above:Performed By: #### B12FOL, VITAD, IRON #### [facility] [address] [place] [address] Dr. Ekta Spring nitrogen/Creatinine [Mass ratio]22.6 mg/mgNormalThe [facility] HospitalComment on above:Performed By: #### B12FOL, VITAD, IRON #### [facility] [address] [place] [address] Dr. Ekta Cloud4on 39-30-6551V9 [Mass/Vol]6.10 ug/dLNormal4.80-13.90The [facility] HospitalComment on above:Performed By: #### B12FOL, VITAD, IRON #### [facility] [address] [place] [address] Dr. Ekta Carmona 14-62-0027ZIN3.336 uIU/mLNormal0.358-3.740The [facility], Incment on above:Performed By: #### B12FOL, VITAD, IRON #### [facility] [address] [place] [address] Dr. Ekta Camejo RANDOM W/MICROSCOPICon 77-06-1086QNMGHYVKYKHJYLwpnbdigOSDI SEENThe [facility] HospitalComment on above:Performed By: #### B12FOL, VITAD, IRON #### [facility] [address] [place] [address] Dr. Ekta Emeryirubin Ql (U)NegativeNormalNEGATIVEThe [facility] Comment on above:Performed By: #### B12FOL, VITAD, IRON #### [facility] [address] [place] [address] Dr. Ekta Velasquez SEENNormalNONE SEENThe [facility] HospitalComment on above:Performed By: #### B12FOL, VITAD, IRON #### [facility] [address] [place] [address] Dr. Ekta FunkClarity (U)CLEARNormalCLEARFirelands Regional Medical Center South CampusComment on above: Performed By: #### B12FOL, VITAD, IRON #### [facility] [address] [address] [address] Ekta Suttonlor (U)LT. YELLOWNormalYELLOWFirelands Regional Medical Center South CampusComment on above:Performed By: #### B12FOL, VITAD, IRON #### [facility] [address] [address] [address] Ekta FunkCrystals LM Nom (Urine sed)NONE SEENNormalNONE SEENFirelands Regional Medical Center South CampusComment on above:Performed By: #### B12FOL, VITAD, IRON #### [facility] [address] [place] [address] Dr. Dash ChangEpithelial cells LM Ql (Urine sed)RARENormalNONE SEEN /RAREThe [facility] HospitalComment on above:Performed By: #### B12FOL, VITAD, IRON #### [facility] [address] [place] [address] Dr. Ekta FunkGlucose Ql (U)NegativeNormalNEGATIVEFirelands Regional Medical Center South CampusComment on above:Performed By: #### B12FOL, VITAD, IRON #### [facility] [address] [place] [address] Dr. Ekta FunkHemoglobin Ql (U)NegativeNormalNEGATIVEFirelands Regional Medical Center [facility] Campus Comment on above:Performed By: #### B12FOL, VITAD, IRON #### [facility] [address] [place] [address] Dr. Ekta FunkKetones Ql (U)NegativeNormalNEGATIVEFirelands Regional Medical Center South CampusComment on above:Performed By: #### B12FOL, VITAD, IRON #### [facility] [address] [place] [address] Dr. Ekta FunkLEUKOCYTESNegativeNormalNEGATIVEFirelands Regional Medical Center South CampusComment on above:Performed By: #### B12FOL, VITAD, IRON #### [facility] [address] [address] [address] Ekta BlantonUSJAMIE SEENNormalNONE SEENFirelands Regional Medical Center South CampusComment on above:Performed By: #### B12FOL, VITAD, IRON #### [facility] [address] [address] [address] Ekta Long Ql (U)NegativeNormalNEGATIVEThe [facility] HospitalComment on above:Performed By: #### B12FOL, VITAD, IRON #### [facility] [address] [address] [address] Ekta FunkpH (U)6.0 [pH]Normal5-9The [facility] HospitalComment on above: Performed By: #### B12FOL, VITAD, IRON #### [facility] [address] [place] [address] Dr. Ekta FunkOzozvZNC2-7Rkdfyf3-3Nfe [facility] HospitalComment on above:Performed By: #### B12FOL, VITAD, IRON #### [facility] [address] [place] [address] Dr. Ekta FunkSPEC GRAVITY<=1.190Wdxrlhbs1.005-<=1.025The [facility] Comment on above:Performed By: #### B12FOL, VITAD, IRON #### [facility] [address] [place] [address] Dr. Ekta Camejo PROTEINNegativeNormalNEGATIVE/ TRACEThe [facility] Comment on above:Performed By: #### B12FOL, VITAD, IRON #### [facility] [address] [place] [address] Dr. Ekta Lugo Qn (U)0.2 {Ivan'U}/dLNormal0.2 - 1.0The [facility] HospitalComment on above:Performed By: #### B12FOL, VITAD, IRON #### [facility] [address] [place] [address] Dr. Ekta LeonardoBCJAMIE SEENNormalNONE SEENThe [facility] HospitalComment on above: Performed By: #### B12FOL, VITAD, IRON #### [facility] [address] [address] [address] Ekta LopezPon 82-06-2893Aopxqklocnl peptide B (Bld) [Mass/Vol]1355.0 pg/mLCritically high<=900.0The [facility] HospitalComment on above:Performed By: #### B12FOL, VITAD, IRON #### [facility] [address] [address] [address] Ekta FunkINSULINon 07-06-0633Bqbhzff39.4 uIU/mLNormal2.6-24.9The [facility] HospitalComment on above:Performed By: #### INSULIN #### [facility] [address] [place] [address] Dr. Ekta FunkOCC BLD IMMUNO SCREENon 06-05-1715AVULSQ BLOODPositiveAbnormal NEGATIVEThe [facility] HospitalComment on above:Performed By: #### B12FOL, VITAD, IRON #### [facility] [address] [place] [address] Dr. Ekta FunkPROF CHEM 8 (BAS METB)on 24-66-4447Fxygw gap [Moles/Vol]15.8 mmol/LNormalFirelands Regional Medical Center South CampusComment on above:Performed By: #### B12FOL, VITAD, IRON #### [facility] [address] [place] [address] Dr. Ekta FunkCalcium [Mass/Vol]8.8 mg/dLNormal8.5-10.1The [facility] Comment on above:Performed By: #### B12FOL, VITAD, IRON #### [facility] [address] [place] [address] Dr. Ekta FunkChloride [Moles/Vol]107 mmol/XRzyner48-113Zyn [facility] Comment on above:Performed By: #### B12FOL, VITAD, IRON #### [facility] [address] [place] [address] Dr. Ekta FunkCO2 [Moles/Vol]21.5 mmol/TEfbizf98.0-32.0The [facility] Comment on above:Performed By: #### B12FOL, VITAD, IRON #### [facility] [address] [address] [address] Ekta FunkCreatinine [Mass/Vol]1.62 mg/dLCritically high0.55-1.02The [facility] HospitalComment on above:Performed By: #### B12FOL, VITAD, IRON #### [facility] [address] [place] [address] Dr. Ekta AbebeGFR-AF KIGXMIVH26 mL/min/1.75p9Vehcqmguda low>=60The [facility] HospitalComment on above:Performed By: #### B12FOL, VITAD, IRON #### [facility] [address] [place] [address] Dr. Ekta AbebeGFR-NON AF HZKELIKP67 mL/min/1.79d3Tjjovfuldo low>=60The [facility] HospitalComment on above:Performed By: #### B12FOL, VITAD, IRON #### [facility] [address] [place] [address] Dr. Ekta FunkGlucose [Mass/Vol]134 mg/dLCritically vlwh30-594Pam [facility] HospitalComment on above:Performed By: #### B12FOL, VITAD, IRON #### [facility] [address] [place] [address] Dr. Ekta FunkPotassium [Moles/Vol]5.3 mmol/LCritically high3.5-5.1The [facility] HospitalComment on above:Performed By: #### B12FOL, VITAD, IRON #### [facility] [address] [place] [address] Dr. Ekta FunkSodium [Moles/Vol]139 mmol/PSnupnk567-707Pba [facility] Comment on above:Performed By: #### B12FOL, VITAD, IRON #### [facility] [address] [place] [address] Dr. Ekta FunkUrea nitrogen [Mass/Vol]37.0 mg/dLCritically high7.0-18.0The [facility] HospitalComment on above:Performed By: #### B12FOL, VITAD, IRON #### [facility] [address] [place] [address] Dr. Ekta Spring nitrogen/Creatinine [Mass ratio]22.8 mg/mgNormalThe [facility] HospitalComment on above:Performed By: #### B12FOL, VITAD, IRON #### [facility] [address] [place] [address] Dr. Ekta Rich, HIGH SENSITIVITYon 58-37-8454BSRUUX55.2 pg/mLCritically high4.0-51.3TWilson [address] HospitalComment on above:Result Comment: CUT-OFF POINTS HAVE BEEN ESTABLISHED BASED ON THE FOURTH UNIVERSAL DEFINITIONS OF MYOCARDIAL INFARCTION. THE UPPER REFERENCE LIMIT (URL) OF TROPONIN, DEFINED THE 99TH PERCENTILE OF cTnI DISTRIBUTION IN A REFERENCE POPULATION, HAS BEEN CONFIRMED THE DECISION THRESHOLD FOR TN DIAGNOSIS.Performed By: #### B12FOL, VITAD, IRON #### [facility] [address] [place] [address] Dr. Ekta Vaughan 34-56-7068Mwswpsjncgo peptide B (Bld) [Mass/Vol]1386.0 pg/mLCritically high<=900.0The [facility] HospitalComment on above:Performed By: #### CVDTBH #### [facility] [address] [place] [address] Dr. Ekta Hale BRITTANIE ADMITon 79-28-9314MV [Catalytic activity/Vol]34 U/L Qprnfg33-025QerFirelands Regional Medical Center South CampusComment on above:Performed By: #### CVDTBH #### [facility] [address] [place] [address] Dr. Ekta Howell.MB [Mass/Vol]1.43 ng/mLNormal<=3.60[facility] Comment on above:Performed By: #### CVDTBH #### [facility] [address] [place] [address] Dr. Ekta FunkHSTROP74.1 pg/mLCritically high4.0-51.3TWilson [address] [facility] Comment on above:Result Comment: CUT-OFF POINTS HAVE BEEN ESTABLISHED BASED ON THE FOURTH UNIVERSAL DEFINITIONS OF MYOCARDIAL INFARCTION. THE UPPER REFERENCE LIMIT (URL) OF TROPONIN, DEFINED THE 99TH PERCENTILE OF cTnI DISTRIBUTION IN A REFERENCE POPULATION, HAS BEEN CONFIRMED THE DECISION THRESHOLD FOR TN DIAGNOSIS.Performed By: #### CVDTBH #### [facility] [address] [place] [address] Dr. Ekta CampO52 ng/mLNormal9-82The [facility] HospitalComment on above: Performed By: #### CVDTBH #### [facility] [address] [place] [address] Dr. Ekta Agarwal AUTO DIFFon 78-23-6244VTLD #0.0 103/ulNormal0.0-0.1The [facility] HospitalComment on above:Performed By: #### CBC #### [facility] [address] [place] [address] Dr. Ekta FunkBasophils/100 WBC (Bld)0.3 %Normal0.2-2.0[facility] Comment on above:Performed By: #### CBC #### [facility] [address] [place] [address] Dr. Ekta Anthony #0.1 103/ulNormal0.0-0.7The [facility] HospitalComment on above: Performed By: #### CBC #### [facility] [address] [place] [address] Dr. Ekta Abebeosinophils/100 WBC (Bld)0.9 %Normal0.9-7.0[facility] Comment on above:Performed By: #### CBC #### [facility] [address] [place] [address] Dr. Ekta Abeberythrocyte distribution width (RBC) [Ratio]13.2 %Wlcugh28.0-15.0 [facility] CampusComment on above:Performed By: #### CBC #### [facility] [address] [place] [address] Dr. Ekta FunkHematocrit (Bld) [Volume fraction]38.9 %Zuqigz03.0-48.0The [facility] HospitalComment on above:Performed By: #### CBC #### [facility] [address] [address] [address] Ekta FunkHemoglobin (Bld) [Mass/Vol]12.4 g/oMXuzcmg77.0-16.0The [facility] HospitalComment on above:Performed By: #### CBC #### [facility] [address] [place] [address] Dr. Ekta Olivares #0.08 10e3/ulCritically high0.00-0.03The [facility] Comment on above:Performed By: #### CBC #### [facility] [address] [place] [address] Dr. Ekta Olivares %0.5 %Normal0.0-0.5The [facility] HospitalComment on above: Performed By: #### CBC #### [facility] [address] [place] [address] Dr. Ekta Putnam #1.4 103/ulNormal1.2-3.8The [facility] HospitalComment on above:Performed By: #### CBC #### [facility] [address] [place] [address] Dr. Ekta Lundberghocytes/100 WBC (Bld)9.6 %Critically low20.5-60.0The [facility] HospitalComment on above:Performed By: #### CBC #### [facility] [address] [place] [address] Dr. Ekta MaloneUAL DIFF REQNONormalThe [facility] HospitalComment on above: Performed By: #### CBC #### [facility] [address] [place] [address] Dr. Ekta Oconnor (RBC) [Entitic mass]32.3 yyCqpodx21.7-34.0The [facility] HospitalComment on above:Performed By: #### CBC #### [facility] [address] [place] [address] Dr. Ekta Oconnor (RBC) [Mass/Vol]31.9 g/sNYsehxp56.9-35.2The [facility] HospitalComment on above:Performed By: #### CBC #### [facility] [address] [address] [address] Ekta OconnorV (RBC) [Entitic vol]101.3 fLCritically high81.0-99.0The [facility] HospitalComment on above:Performed By: #### CBC #### [facility] [address] [address] [address] Ekta Rivas #0.9 103/ulCritically high0.3-0.8The [facility] Comment on above:Performed By: #### CBC #### [facility] [address] [address] [address] Ekta Perkinsocytes/100 WBC (Bld)6.3 %Normal1.7-12.0[facility] Comment on above:Performed By: #### CBC #### [facility] [address] [place] [address] Dr. Ekta DimasUT #12.0 103/ulCritically high1.4-6.5The [facility] Comment on above:Performed By: #### CBC #### [facility] [address] [place] [address] Dr. Ekta Dimasutrophils/100 WBC (Bld)82.4 %Critically high43.0-75.0The [facility] HospitalComment on above:Performed By: #### CBC #### [facility] [address] [place] [address] Dr. Ekta Salomonlet mean volume (Bld) [Entitic vol]9.7 fLNormal9.5-13.5The [facility] HospitalComment on above:Performed By: #### CBC #### [facility] [address] [place] [address] Dr. Ekta FunkPLT176 103/gzRtjhnd882-340Mjt [facility] HospitalComment on above: Performed By: #### CBC #### [facility] [address] [place] [address] Dr. Ekta FunkRBC3.84 106/ulCritically low4.20-5.40The [facility] HospitalComment on above:Performed By: #### CBC #### [facility] [address] [address] [address] Ekta FunkWBC14.6 103/ulCritically high4.0-11.0The [facility] HospitalComment on above:Performed By: #### CBC #### [facility] [address] [address] [address] Ekta Correa THYROXINE INDEX T7on 41-23-0487XHB6.47Uouasg9.30-4.50The [facility] HospitalComment on above:Performed By: #### CVDTBH #### [facility] [address] [address] [address] Ekta FunkT3U36.0 %Vgcqpw08.0-39.0The [facility] HospitalComment on above: Performed By: #### CVDTBH #### [facility] [address] [address] [address] Ekta FunkT4 [Mass/Vol]6.50 ug/dLNormal4.80-13.90The [facility] Comment on above:Performed By: #### CVDTBH #### [facility] [address] [address] [address] Ekta FunkGLYCOHEMOGLOBIN A1Con 97-34-4849EUV RECOMMENDATIONSEE BELOWNormal The [facility] HospitalComhills [facility] on above:Result Comment: ADA RECOMMENDED LIMIT 4.0 - 6.0 ADA THERAPEUTIC TARGET < 7.0 ACTION SUGGESTED > 7.0Performed By: #### B12FOL, VITAD, IRON #### [facility] [address] [place] [address] Dr. Ekta FuknGlucose [Mass/Vol]140 mg/dLNormalThe [facility] HospitalComment on above:Performed By: #### B12FOL, VITAD, IRON #### [facility] [address] [place] [address] Dr. Ekta FunkHbA1c (Bld) [Mass fraction]6.5 %Critically high4.5-6.2The [facility] HospitalComment on above:Performed By: #### B12FOL, VITAD, IRON #### [facility] [address] [address] [address] Ekta Shannon [id number] [Mass/Vol]62.0 ug/vTNuxvkl49.0-170.0The [facility] on above:Performed By: #### B12FOL, VITAD, IRON #### [facility] [address] [address] [address] Ekta FunkLIPID PROFILEon [id number]-HDL RATIO NORMSEE [facility]ronComh[facility] on above:Result Comment: 3.3 - 4.4 LOW RISK 4.4 - 7.1 AVERAGE RISK 7.1 - 11.0 MODERATE RISK >11.0 HIGH RISKPerformed By: #### CVDTBH #### [facility] [address] [place] [address] Dr. Ekta FunkCholesterol [Mass/Vol]242 mg/dLCritically high<=200The [facility] on above:Performed By: #### CVDTBH #### [facility] [address] [address] [address] Ekta FunkCholesterol in HDL [Mass/Vol]74 mg/dLCritically ppyv35-91Pfa [facility] on above:Performed By: #### CVDTBH #### [facility] [address] [place] [address] Dr. Ekta FunkCholesterol in LDL [Mass/Vol]139.4 mg/dLDiley Ridge Medical Center on above:Performed By: #### CVDTBH #### [facility] [address] [place] [address] Dr. Ekta Tejedaestertracy.total/Cholesterol in HDL [Mass ratio]3.3 {ratio} NormalThe [facility] on above:Performed By: #### CVDTBH #### [facility] [address] [place] [address] Dr. Ekta FunkHDHu NORMAL> or = 60 mg/dl - LOW CARDIOVASCULAR RISK <40 mg/dl - HIGH CARDIOVASCULAR RISKBellevue HospitalComment on above:Performed By: #### CVDTBH #### [facility] [address] [address] [address] Ekta Navarro CALC NORMALSEE BELOWNoCrystal Clinic Orthopedic CenterComment on above:Result Comment: <100 mg/dl OPTIMAL 100 - 129 mg/dl NEAR OR ABOVE OPTIMAL 130 - 159 mg/dl BORDERLINE HIGH 160 - 189 mg/dl HIGH >190 mg/dl VERY HIGH Performed By: #### CVDTBH #### [facility] [address] [address] [address] Ekta FunkTriglyceride [Mass/Vol]143 mg/dLNormal<=150The [facility] Comment on above:Performed By: #### CVDTBH #### [facility] [address] [place] [address] Dr. Ekta AnneLDL CALC28.6 mg/dLNoCrystal Clinic Orthopedic CenterComment on above: Performed By: #### CVDTBH #### [facility] [address] [address] [address] Ekta FunkPROF 14(COMP METB)on [id number] [Mass/Vol]2.8 g/dL Critically low3.4-5.0The [facility] on above:Performed By: #### CVDTBH #### [facility] [address] [place] [address] Dr. Ekta FunkAlbumin/Globulin [Mass ratio]0.7 {ratio}NormalThe [facility] HospitalComment on above:Performed By: #### CVDTBH #### [facility] [address] [place] [address] Dr. Ekta Cowart [Catalytic activity/Vol]90 U/DXbweqg65-548Paj [facility] HospitalComhills & dales general hospital on above:Performed By: #### CVDTBH #### [facility] [address] [place] [address] Dr. Ekta Mccormick [Catalytic activity/Vol]26 U/GTunivo81-21Ljl [facility] on above:Performed By: #### CVDTBH #### [facility] [address] [address] [address] Ekta FunkAnion gap [Moles/Vol]14.5 mmol/LNormalFirelands Regional [facility] Comment on above:Performed By: #### CVDTBH #### [facility] [address] [address] [address] Ekta FunkAST [Catalytic activity/Vol]14 U/LCritically lra63-22Jno [facility] HospitalComment on above:Performed By: #### CVDTBH #### [facility] [address] [place] [address] Dr. Ekta FunkBilirubin [Mass/Vol]0.4 mg/dLNormal0.2-1.0[facility] Comment on above:Performed By: #### CVDTBH #### [facility] [address] [place] [address] Dr. Ekta FunkCalcium [Mass/Vol]8.9 mg/dLNormal8.5-10.1[facility] Comment on above:Performed By: #### CVDTBH #### [facility] [address] [address] [address] Ekta FunkChloride [Moles/Vol]106 mmol/KWxqfth08-810IvjFirelands Regional Medical Center South Campus Comment on above:Performed By: #### CVDTBH #### [facility] [address] [place] [address] Dr. Ekta FunkCO2 [Moles/Vol]23.5 mmol/ATiztgt03.0-32.0The [facility] Comment on above:Performed By: #### CVDTBH #### [facility] [address] [address] [address] Ekta FunkCreatinine [Mass/Vol]1.70 mg/dLCritically high0.55-1.02The [facility] HospitalComment on above:Performed By: #### CVDTBH #### [facility] [address] [address] [address] Dash ChangEGFR-AF KBWJLAYL04 mL/min/1.38n5Kuiiyubukh low>=60The [facility] HospitalComment on above:Performed By: #### CVDTBH #### [facility] [address] [address] [address] Ekta AbebeGFR-NON AF UFTDYINR54 mL/min/1.51j4Inhhvyrkiz low>=60The [facility] HospitalComment on above:Performed By: #### CVDTBH #### [facility] [address] [address] [address] Ekta FunkGlobulin (S) [Mass/Vol]4.0 g/dLNormalThParkview Health Bryan HospitalComment on above:Performed By: #### CVDTBH #### [facility] [address] [address] [address] Ekta FunkGlucose [Mass/Vol]99 mg/fVDiwmwa63-366UmiFirelands Regional Medical Center South Campus Comment on above:Performed By: #### CVDTBH #### [facility] [address] [address] [address] Ekta FunkPotassium [Moles/Vol]5.0 mmol/LNormal3.5-5.1The [facility] Comment on above:Performed By: #### CVDTBH #### [facility] [address] [address] [address] Ekta FunkProtein [Mass/Vol]6.8 g/dLNormal6.4-8.2[facility] Comment on above:Performed By: #### CVDTBH #### [facility] [address] [address] [address] Ekta FunkSodium [Moles/Vol]139 mmol/FPgzocn189-047RfgFirelands Regional Medical Center South Campus Comment on above:Performed By: #### CVDTBH #### [facility] [address] [address] [address] Etka FunkUrea nitrogen [Mass/Vol]36.0 mg/dLCritically high7.0-18.0The [facility] HospitalComment on above:Performed By: #### CVDTBH #### [facility] [address] [address] [address] Ekta FunkUrea nitrogen/Creatinine [Mass ratio]21.2 mg/mgNormalThe [facility] HospitalComment on above:Performed By: #### CVDTBH #### [facility] [address] [place] [address] Dr. Ekta Carmona 74-85-1158PLR5.910 uIU/mLNormal0.358-3.740The [facility] on above:Performed By: #### CVDTBH #### [facility] [address] [place] [address] Dr. Ekta FunkCovid-19 PCR ([facility])on [id number]-CoV-2 (COVID-19) RNA GANESH+probe Ql (Unsp spec)DetectedAbnormalNOT DETECTEDThe [facility] on above:Result Comment: This test is not yet approved or cleared by the [place] FDA. When there are no FDA-approved or cleared tests available, and other criteria are met, FDA can make tests available under an emergency access mechanism called an Emergency Use Authorization (EUA). The EUA for this test is supported by the Chemical Plant Worker of Health and Human Service's declaration that [...] longer be used).Performed By: #### CMP #### [facility] [address] [place] [address] Dr. Ekta FunkINFLNGHIANZA A AND B AGon [id number] [facility] on above:Result Comment: Negative for Flu A protein angiten. Infection due to Flu A cannot be ruled out. FluA angiten in the sample may be below the detection limit of the test.Performed By: #### B12FOL, VITAD, IRON #### [facility] [address] [place] [address] Dr. Ekta FunkINFLUBNEGHSEE [facility] on above: Result Comment: Negative for Flu B protein antigen. Infection due to Flu B cannot be ruled out. FluB antigen in the sample may be below the detection limit of the test.Performed By: #### B12FOL, VITAD, IRON #### [facility] [address] [place] [address] Dr. Ekta Arguelles AGNegativeNormalNEGATIVE SEE COMMENTThe [facility] HospitalComment on above:Performed By: #### B12FOL, VITAD, IRON #### [facility] [address] [address] [address] Ekta Rojas AGNegativeNormalNEGATIVE SEE COMMENTThe [facility] HospitalComment on above:Performed By: #### B12FOL, VITAD, IRON #### [facility] [address] [place] [address] Dr. Ekta Woody CAROTID ART BILon [id number] CAROTID ART BILEXAMINATION: US CAROTID ART ANGELIQUE [...] Electronically authenticated by: GODWIN BECK Date: 2022-05-26 16:[address] [place], [place] [address]MRI BRAIN WO CONon [id number] BRAIN WO CONEXAMINATION: MRI BRAIN WO CON, [...] Electronically authenticated by: DANIEL PINEDA Date: 2022-05-25 10:[address] [place], [place] [address]ECHOCARDIO M/2D COMPLETEon [id number] M/2D COMPLETE Patient: SHEILA MAC Exam Date: 05/24/2022 : 1950 Gender:F Ordering : DR KRZYSZTOF THOMPSON . Admission #: [id number] Family : Order #: [id number] CLICK HERE TO VIEW EXAM ECHOCARDIOGRAM REPORT [...] by: Sylwia Mckay M.D. on 05/24/2022 at 14:45[facility] METABOLIC PANELon 77-71-7391Iyuxqgx mass conc9.4 mg/dLNormal 8.6-10.3The [facility] HospitalComment on above:Order Comment: No: Do not add to previous drawPerformed By: #### [id number] #### [facility] [address] [place] [address], USAChloride molar vzuw058 mmol/AHysm41-960Oic [facility] HospitalComment on above:Order Comment: No: Do not add to previous drawPerformed By: #### [id number] #### [facility] [address] [place] [address], [place]ACO2 molar conc22 mmol/KNjoodt51-56Ivm [facility] HospitalComment on above:Order Comment: No: Do not add to previous draw Performed By: #### [id number] #### [facility] [address] [place] [address], USACreatinine mass conc1.18 mg/dLNormal0.60-1.20The [facility] HospitalComment on above:Order Comment: No: Do not add to previous drawPerformed By: #### [id number] #### [facility] [address] [place] [address], USAGFR/1.73 sq M predicted among blacks MDRD vol rate/area (S/P/Bld)55 ml/min/1.73sq mAbnormal>60The [facility] Comment on above:Order Comment: No: Do not add to previous drawPerformed By: #### [id number] #### [facility] [address] [place] [address], USAGFR/1.73 sq M predicted among non-blacks MDRD vol rate/area (S/P/Bld)45 ml/min/1.73sq mAbnormal>60The [facility] Comment on above:Order Comment: No: Do not add to previous drawPerformed By: #### [id number] #### [facility] [address] [place] [address], USAGlucose mass zwvd122 mg/gZGtbx88-194Zoq [facility] HospitalComment on above:Order Comment: No: Do not add to previous drawPerformed By: #### [id number] #### [facility] [address] [place] [address], USAPotassium molar conc4.1 mmol/LNormal3.5-5.1The [facility] HospitalComment on above:Order Comment: No: Do not add to previous drawPerformed By: #### [id number] #### [facility] [address] [place] [address], USASodium molar mlhe538 mmol/YCgdeyb124-050Jsx [facility] HospitalComment on above:Order Comment: No: Do not add to previous drawPerformed By: #### [id number] #### [facility] [address] [place] [address], USAUrea nitrogen mass conc21 mg/dLNormal7-25The [facility] HospitalComment on above:Order Comment: No: Do not add to previous drawPerformed By: #### [id number] #### [facility] [address] [place] [address], USACBC COMPLETE BLOOD COUNTon [id number] distribution width Ratio (RBC)12.9 %Ccchsb39.5-15.0The [facility] HospitalComment on above:Order Comment: No: Do not add to previous draw Performed By: #### [id number] #### [facility] [address] [place] [address], USAHematocrit Volume Fraction (Bld)36.7 %Kkcwwz18.0-45.0The [facility] HospitalComment on above:Order Comment: No: Do not add to previous drawPerformed By: #### [id number] #### [facility] [address] [place] [address], USAHemoglobin mass conc (Bld)12.4 g/aEQqiemk90.0-15.0The [facility] HospitalComment on above:Order Comment: No: Do not add to previous drawPerformed By: #### [id number] #### [facility] [address] [place] [address], [facility] Entitic mass (RBC)31.2 zmPrfcye07.0-33.0The [facility] [place] [facility] HospitalComment on above:Order Comment: No: Do not add to previous drawPerformed By: #### [id number] #### [facility] [address] [place] [address], [facility]HC mass conc (RBC)33.8 g/tLWrjuqc41.0-35.0The [facility] [place] [facility] HospitalComment on above:Order Comment: No: Do not add to previous drawPerformed By: #### [id number] #### [facility] [address] [place] [address], [facility] Entitic volume (RBC)92.4 pZMoxzmt18.0-98.0The [facility] [place] [facility] HospitalComment on above:Order Comment: No: Do not add to previous drawPerformed By: #### [id number] #### [facility] [address] [place] [address], [facility] MEDICAL CENTERNucleated RBC/100 WBC Ratio (Bld)0 %Normal0-0The [facility] [place] [facility] HospitalComment on above:Order Comment: No: Do not add to previous drawPerformed By: #### [id number] #### [facility] [address] [place] [address], USAPLAT YAX675 10*3/aCRpddfv949-610Ona [facility] HospitalComment on above:Order Comment: No: Do not add to previous draw Performed By: #### [id number] #### [facility] [address] [place] [address], [facility] CENTERRBC #/vol (Bld)3.97 10*6/uLNormal3.80-5.00The [facility] [place] [facility] HospitalComment on above:Order Comment: No: Do not add to previous drawPerformed By: #### [id number] #### [facility] [address] [place] [address], [facility] MED[facility] CENTERWBC #/vol (Bld)5.55 10*3/uLNormal4.00-10.60The [facility] [place] [facility] HospitalComment on above:Order Comment: No: Do not add to previous drawPerformed By: #### [id number] #### [facility] [address] [place] [address], [facility]ICAL CENTERCardiovascular Lab Reporton [id number] Lab ReportUnOhioHealth Grady [facility] Hospital Patient Name: Bubba [facility] MR #: [id number] Department of Physician: [facility] Shellie Gaspar M.D. Division of Service Date: 11/20/2018 Cardiology Birthdate: 1950 Adult Cardiovascular Room #: 3AB [id number] [facility] [address] [address] Cardiovascular Laboratory Report INDICATION: The patient is a 68-year-old woman who was evaluated in Cardiology Clinic because of new onset symptoms of shortness of breath on mild exertion. Her stress test showed evidence of jhrjm-ut-vrzkkbjx area of inferoapical ischemia; because of that, she was referred for cardiac catheterization. PROCEDURES: 1. Right heart catheterization. 2. Bilateral selective coronary angiography. 3. Limited right femoral angiography. METHOD: Procedure was explained patient with risks and benefits. She signed informed consent. 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 The right groin area was prepped and draped in usual fashion. Using micropuncture technique, the right common femoral artery was accessed. The inner cannula was advanced. Limited femoral angiography was performed followed by upsizing to a 6-Macanese x 11 cm sheath. Access was also obtained using the same technique in the right common femoral vein and a 6-Macanese x 11 cm sheath was placed. A 6-Macanese Michel catheter was used for right heart catheterization with measurement of pressures and calculation of cardiac output using the estimated Ivory method. Michel catheter was removed. Bilateral selective coronary angiography was then performed using 6-Macanese JL4 and JR4 diagnostic catheters. Catheters were [...] Gaspar M.D. Date Trans: 11/20/2018 09:31 A/alvina DN_JN:[id number] cc: Krzysztof Thompson M.D. [id number] [facility] [place] [address]BkmnjmTjlRegency Hospital CompanyBASIC METABOLIC PANELon 89-87-8365Drhljhn mass conc9.5 mg/dLNormal8.6-10.3The [facility] [place] [facility] HospitalComment on above:Order Comment: No: Do not add to previous drawPerformed By: #### [id number] #### [facility] [address] [place] [address], USAChloride molar xpie029 mmol/CQixcqo22-291Csq [facility] HospitalComment on above:Order Comment: No: Do not add to previous drawPerformed By: #### [id number] #### [facility] [address] [place] [address], [place]AC[place]2 molar conc24 mmol/BYvjpbs44-61Vdl [facility] HospitalComment on above:Order Comment: No: Do not add to previous draw Performed By: #### [id number] #### [facility] [address] [place] [address], USACreatinine mass conc1.42 mg/dLHigh0.60-1.20The [facility] [place] [facility] HospitalComment on above:Order Comment: No: Do not add to previous drawPerformed By: #### [id number] #### [facility] [address] [place] [address], USAGFR/1.73 sq M predicted among blacks MDRD vol rate/area (S/P/Bld)45 ml/min/1.73sq mAbnormal>60The [facility] Comment on above:Order Comment: No: Do not add to previous drawPerformed By: #### 11602 #### [facility] [address] [place] [address], USAGFR/1.73 sq M predicted among non-blacks MDRD vol rate/area (S/P/Bld)36 ml/min/1.73sq mAbnormal>60The [facility] Comment on above:Order Comment: No: Do not add to previous drawPerformed By: #### [id number] #### [facility] [address] [place] [address], USAGlucose mass conc86 mg/oDRgvaya37-607Tob [facility] HospitalComment on above:Order Comment: No: Do not add to previous drawPerformed By: #### [id number] #### [facility] [address] [place] [address], USAPotassium molar conc4.2 mmol/LNormal3.5-5.1The [facility] [place] [facility] HospitalComment on above:Order Comment: No: Do not add to previous drawPerformed By: #### [id number] #### [facility] [address] [place] [address], USASodium molar jcmj561 mmol/SHifzpu369-570Mui [facility] HospitalComment on above:Order Comment: No: Do not add to previous drawPerformed By: #### [id number] #### [facility] [address] [place] [address], USAUrea nitrogen mass conc19 mg/dLNormal7-25The [facility] HospitalComment on above:Order Comment: No: Do not add to previous drawPerformed By: #### [id number] #### [facility] [address] [place] [address], USACBC COMPLETE BLOOD COUNTon 03-74-8158Gtuqysvftkf distribution width Ratio (RBC)13.0 %Lstbgc52.5-15.0The [facility] HospitalComment on above:Order Comment: No: Do not add to previous draw Performed By: #### 78229 #### [facility] [address] [place] [address], USAHematocrit Volume Fraction (Bld)38.3 %Nyqdqx58.0-45.0The [facility] HospitalComment on above:Order Comment: No: Do not add to previous drawPerformed By: #### [id number] #### [facility] [address] [place] [address], USAHemoglobin mass conc (Bld)12.6 g/sRNrhroy80.0-15.0The [facility] HospitalComment on above:Order Comment: No: Do not add to previous drawPerformed By: #### [id number] #### [facility] [address] [place] [address], [facility] Entitic mass (RBC)31.1 daJzikrv47.0-33.0The [facility] HospitalComment on above:Order Comment: No: Do not add to previous drawPerformed By: #### [id number] #### [facility] [address] [place] [address], [facility]ANYHC mass conc (RBC)32.9 g/fKEfnolj39.0-35.0The [facility] HospitalComment on above:Order Comment: No: Do not add to previous drawPerformed By: #### [id number] #### [facility] [address] [facility] [place] [address], [facility]V Entitic volume (RBC)94.6 hCFdkagw67.0-98.0The [facility] HospitalComment on above:Order Comment: No: Do not add to previous drawPerformed By: #### [id number] #### [facility] [address] [place] [address], [facility] MEDICAL CENTERNucleated RBC/100 WBC Ratio (Bld)0 %Normal0-0The [facility] HospitalComment on above:Order Comment: No: Do not add to previous drawPerformed By: #### [id number] #### [facility] [address] [place] [address], [facility] MEDICAL CENTERPLAT HUY041 10*3/tUMhlefs645-522Xws [facility] HospitalComment on above:Order Comment: No: Do not add to previous draw Performed By: #### [id number] #### [facility] [address] [facility]. [place] [id number], [facility] MEDICAL CENTERRBC #/vol (Bld)4.05 10*6/uLNormal3.80-5.00The [facility] HospitalComment on above:Order Comment: No: Do not add to previous drawPerformed By: #### [id number] #### [facility] [address] [place] [address], USAWBC #/vol (Bld)9.01 10*3/uLNormal4.00-10.60The [facility] HospitalComment on above:Order Comment: No: Do not add to previous drawPerformed By: #### [id number] #### [facility] [address] [place] [address], USAPROTHROMBIN TIMEon [id number] Coag RelTime (PPP)1.07 {INR}Normal0.91-1.16The [facility] [...] OPTIMAL THERAPEUTIC RANGE. CHEST 1995;108:231S-246S.Performed By: #### [id number] #### [facility] [address] [place] [address], USAProthrombin time (PT) Coag time (PPP)13.9 mVclmau34.3-14.8 The [facility] HospitalComment on above:Order Comment: No: Do not add to previous drawResult Comment: ALL RESULTS MUST BE INTERPRETED WITH RESPECT TO BLOOD DRAWING ARTIFACT OR DILUTION ERROR OF ANTICOAGULANT AT THE TIME OF SAMPLING.Performed By: #### [id number] #### [address] Vital Signs Date TimeVital SignValuePerforming TumdsphvkKxwqujxh58-26-2696 10:08-0400Body ehaufj336.6 cmKaitlin Macdonald UTILIZATION ENGINEER-G[employer]NER'[employer] MATE M Work Phone: [facility]10-14-2025 10:08-0400Body mass index (BMI) [Ratio]20.36 kg/v2KfubbjiKaitlin Macdonald UTILIZATION ENGINEER-[employer]NER'[employer] MATE M Work Phone: [facility]10-14-2025 10:08-0400Body ovjccx27.8 kgKaitlin Macdonald UTILIZATION ENGINEER-[employer]NER'[employer] MATE M Work Phone: [facility]10-14-2025 10:08-0400Diastolic blood olnjrkbn05 mm[Hg]Kaitlin Macdonald UTILIZATION ENGINEER-[employer]NER'[employer] MATE M Work Phone: [facility]10-14-2025 10:08-0400Heart rate 66 /minKaitlin Macdonald UTILIZATION ENGINEER-G[employer]NER'[employer] MATE M Work Phone: [facility]10-14-2025 10:08-0400Systolic blood ihpdwbqr123 mm[Hg]Kaitlin Macdonald UTILIZATION ENGINEER-GUNNER'S MATE M Work Phone: [facility]07-17-2025 14:35-0400Body meswat976.48 cmKrzysztof Thompson MD Work Phone: [facility]07-17-2025 14:35-0400 Body mass index (BMI) [Ratio]21.7 kg/e7BgrmpkdKrzysztof Thompson MD Work Phone: 1([phone] [place], [place] 5906507-17-2025 14:35-0400 Body urexzi85.97 kgKrzysztof Thompson MD Work Phone: [phone] [place], [place] 5906506-12-2025 14:50-0400 Body kvjbxu30.2 kgKrzysztof Thompson MD Work Phone: [phone] [place], [place] 5906504-17-2025 10:07-0400 Body wanmih040.6 cmKaitlin Macdonald UTILIZATION ENGINEER-[employer] M Work Phone: [facility] [employer] Oavfdx53-17-6670 10:07-0400Body mass index (BMI) [Ratio]21.7 kg/l3AzmgmpwKaitlin Macdonald UTILIZATION ENGINEER-[employer] M[employer] M Work Phone: [facility] [employer] Myohhl32-97-5031 10:07-0400Body dvvuhs47.34 kgKaitlin Macdonald UTILIZATION ENGINEER-[employer] M Work Phone: [facility] [employer] Gdlgek80-93-4944 10:07-0400Diastolic blood qxcpbqij97 mm[Hg]Kaitlin Macdonald UTILIZATION ENGINEER-[employer] M[employer] M Work Phone: [facility] [employer] Ohtcnc03-25-9741 10:07-0400Heart rate 89 /minKaitlin Macdonald APRN-[employer] M[employer] M Work Phone: [facility] [employer] Uuucpm82-62-7452 10:07-0400Systolic blood leqxlmcu297 mm[Hg]Kaitlin Macdonald APRN-G[employer]NER'[employer] MATE M Work Phone: [facility] [employer] Hbxmyo19-78-1727 14:21-0500Body mass index (BMI) [Ratio]23.52 kg/a6Jfejhvtxaag Shama DO Work Phone: [facility] CenterOgvgzimsta49-41-2695 14:21-0500Body gnmaok28.24 kgChristopher Sesay DO Work Phone: no[facility] CenterVdbkuaasma86-62-0133 14:21-0500Diastolic blood qzygdxet72 mm[Hg]Christsantoser Shama DO Work Phone: no[facility] CenterDfmjkbsjvv06-87-6112 14:21-0500Heart rate79 /min Christopher Shama DO Work Phone: no[facility] CenterYxqzwgtojq35-37-7620 14:21-1116SqZ5% (BldA) [Mass fraction]97 %Christopher Shama DO Work Phone: no[facility] CenterVstqzcoqbt23-29-1630 14:21-0500Systolic blood mm[Hg]Christopher Shama DO Work Phone: [facility] CenterTcafgigzoh65-50-9954 11:45-0500Body .[address]11-12-2024 11:45-0500Body mass index (BMI) [Ratio] 22.31 kg/m[address]11-12-2024 11:45-0500Body semxbl16.[address]11-06-2024 11:25-0500Body fuibgx927.6 cmKaitlin Macdonald UTILIZATION ENGINEER-[employer] MATE M Work Phone: [facility]11-06-2024 11:25-0500Body mass index (BMI) [Ratio]22.49 kg/k7LnwirvmKaitlin Macdonald UTILIZATION ENGINEER-G[employer]NER'[employer] MATE M Work Phone: [facility]11-06-2024 11:25-0500Body htqmfi31.42 kgKaitlin Macdonald UTILIZATION ENGINEER-G[employer]NER[employer] MATE M Work Phone: [facility]11-04-2024 13:28-0500Body mass index (BMI) [Ratio]23.52 kg/t4Ndrxfkwjpbj Shama DO Work Phone: [facility] CenterPzngyhdhlx30-66-2736 13:28-0500Body .24 kgChristopher Shama DO Work Phone: [facility] CenterXxmtrqekvu30-30-5301 13:28-0500Diastolic blood hcifepnd439 mm[Hg]Raven Sesay DO Work Phone: [facility] CenterRpczyakbtm66-77-1440 13:28-0500Heart rate87 /min Raven Sesay DO Work Phone: [facility] CenterRrtrvwqhjc38-99-5023 13:28-3931FhS9% (BldA) [Mass fraction]91 %Raven Sesay DO Work Phone: [facility] CenterBjrkaqxjid55-56-2224 13:28-0500Systolic blood kugqhpsl666 mm[Hg]Bonifacioopher Shama DO Work Phone: [facility] CenterRpeivwziye10-69-9145 11:35-0400Diastolic blood mm[Hg]MD Krzysztof Thompson Work Phone: [phone])[address] [place], [place] 4904007-17-2024 11:35-0400 Heart rate76 /minMD Krzysztof Hoanastasia Work Phone: [phone])[address] [place], [place] 4904007-17-2024 11:35-0400 Respiratory rate18 /minMD Krzysztof Hoy Work Phone: [phone])[address] [place], [place] 4904007-17-2024 11:35-0400 SaO2% (BldA) [Mass fraction]96 %MD Krzysztof Thompson Work Phone: [phone])[address] [place], [place] 4904007-17-2024 11:35-0400 Systolic blood awyvknno264 mm[Hg]MD Krzysztof Thompson Work Phone: 1419)[address] [place], [place] 4904007-17-2024 10:24-0400 Body meipfm850.48 cmMD Krzysztof Hoy Work Phone: 1419)[address] [place], [place] 4904007-17-2024 10:24-0400 Body tqnzoe52.14 kgMD Krzysztof Hoy Work Phone: 1419)[address] [place], [place] 4904006-11-2024 09:07-0400 Body xzefjw915.48 cmMD Krzysztof Hoy Work Phone: 1(014)[address] [place], [place] 4904006-11-2024 09:07-0400 Body mass index (BMI) [Ratio]24.7 kg/m2MD Krzysztof Hoy Work Phone: 1(793)[address] [place], [place] 4904006-11-2024 09:07-0400 Body .23 kgMD Krzysztof Hoy Work Phone: 1419)[address] [place], [place] 4904006-11-2024 09:07-0400 Diastolic blood mm[Hg]MD Krzysztof Thompson Work Phone: 1(492)[address] [place], [place] 4904006-11-2024 09:07-0400 Heart rate60 /minMD Krzysztof Thompson Work Phone: 1(601)[address] [place], [place] 4904006-11-2024 09:07-0400 Systolic blood raaznbpt178 mm[Hg]MD Krzysztof Thompson Work Phone: 1(957)191-[address] [place], [place] 5906505-28-2024 13:37-0400 Diastolic blood rirxsvlb03 mm[Hg]MD Krzysztof Thompson Work Phone: 1(425)[address]05-28-2024 13:37-0400 Heart rate78 /minMD Krzysztof Thompson Work Phone: 1(444)[address]05-28-2024 13:37-0400 Respiratory rate16 /minMD Krzysztof Thompson Work Phone: 1(250)[address]05-28-2024 13:37-0400 SaO2% (BldA) [Mass fraction]97 %MD Krzysztof Thompson Work Phone: 1(084)[address]05-28-2024 13:37-0400 Systolic blood sffcmoti926 mm[Hg]MD Krzysztof Thompson Work Phone: 1(723)[address]05-28-2024 11:35-0400 Body .48 cmMD Krzysztof Thompson Work Phone: 1(301)[address]05-28-2024 11:35-0400 Body zhzuvscuglf45.1 [degF]MD Krzysztof Thompson Work Phone: 1(279)[address]05-28-2024 11:35-0400 Body ujjjli73.14 kgMD Krzysztof Thompson Work Phone: 1(638)[address] [place] [address] Encounters Encounter DateEncounter TypeCare ProviderFacilityStart: 38-26-1698zpntjvxxsa Facility:[facility] 07-15-2025 End: 94-28-0943Jwhjvawet encounterErin Bashir [facility] SurgeryStart: 06-23-2025 End: 71-82-8571Wbslot outpatient visit 15 minutesKaitlin Macdonald APRN-G[employer] MATE M Work Phone: [facility] General SurgeryComment on above: Incontinence of feces, unspecified fecal incontinence type (Primary Dx); Diverticular stricture ([facility])Start: 06-23-2025 End: 81-79-5169jgifsxzmvtULGIWTLMUSC [facility] Start: 05-13-2025 End: 54-60-0867ozhieipfzgWbkrwrs M Hoy MD Work Phone: [facility] Work Phone: Start: 05-13-2025 End: 83-81-5716Fyqaezlo ReferredKrzysztof Marmolejo MD-[facility] Start: 05-04-2025 End: 06-40-8587lzylenfuvnKqsbqpi M Hoy MD Work Phone: [facility] Work Phone: Start: 05-04-2025 End: 42-89-9837Rdblwov encounter procedureRickie Johnson MD-[facility] Work Phone: Start: 04-27-2025 End: 31-57-1106jaqmlbpxrcAlxyzsh M Hoy MD Work Phone: [facility] Work Phone: Start: 04-27-2025 End: 70-34-8022Qswscpw encounter procedureThsenait Alvares MD-[facility] Work Phone: Start: 04-02-2025 End: 91-20-4690rfslfennbcTikpven M Hoy MD Work Phone: [facility] Work Phone: Start: 04-02-2025 End: 21-49-4446Ukoaeqf encounter procedureRickie Johnson MD-[facility] Work Phone: Start: 30-84-9495obngoesmkhPthavdHugo Atwood MD [facility]art: 03-26-2025 End: 65-13-0847lhzblynxzuHbbamuu M Hoy MD Work Phone: [facility] Work Phone: Start: 03-26-2025 End: 43-08-1118Arlrmpp encounter procedureVasyl Chicas MD-[facility] Work Phone: start: 03-11-2025 End: 13-84-3406voodackdzvOuffxoh M Hoy MD Work Phone: [facility] Work Phone: Start: 03-11-2025 End: 77-07-2803Txurvgm encounter procedureRickie Johnson MD-[facility] Work Phone: Start: 02-26-2025 End: 55-25-3111Cuaftnc encounter procedureVasyl Chicas MD-[facility] Work Phone: Start: 02-26-2025 End: 19-88-6552woydadcoovBtrmton M HoyFamadison county health care [facility] Start: 02-19-2025 End: 97-94-3305Hbmofnx encounter procedureVasyl Chicas MD-[facility] Work Phone: start: 12-25-2024 End: 54-83-2468Oohyih outpatient visit 15 minutesKaitlin Macdonald UTILIZATION ENGINEER-G[employer]NER'[employer] MATE M Work Phone: [facility] General SurgeryComment on above: Bright red blood per rectum (Primary Dx)Start: 12-25-2024 End: 21-56-6695Tldvct OnlyNot In System Ref ProvProMedica Physicians General SurgeryStart: 08-11-2024 End: 72-02-5298nbajmhlqsoBWFREXCWCFK HASSETTNot AvailableStart: 08-11-2024 End: 99-76-3996Faxmiw outpatient visit 25 minutesChristopher Shama DO Work Phone: [facility] STATE ROUTEComment on above:Left hand pain (Primary Dx); Primary osteoarthritis of hand, unspecified lateralityStart: 08-04-2024 End: 30-59-2301Krsgbpffp encounterAngelica Dawson CMAProMedica Physicians General SurgeryStart: 07-28-2024 End: 94-37-5827Xlzwzdqvmr and management of inpatientSouthern Virginia Regional Medical Centertart: 07-22-2024 End: 86-46-7756fqhyruvpeuArz Pat Phone Call Provider [address] [place] [address] - Pre AdmitStart: 07-22-2024 End: 22-07-3516fyvmkzyahiWTJNDLZ M [facility] Hospitaltart: 07-17-2024 End: 14-79-2818Mjrimb flowsheetChristopher Shama DO Work Phone: [facility] ROUTEStart: 07-17-2024 End: 44-14-4888Qlzbnd flowsheetChristopher Shama DO Work Phone: [facility] ROUTEStart: 07-17-2024 End: 71-38-0882Xyrgjid encounter procedureChristopher Shama DO Work Phone: [facility] STATE ROUTEComment on above:Cervical radiculopathy (Primary Dx); ParesthesiaStart: 07-17-2024 End: 33-42-9514ofikfoaemuMNMUHYIWQWA HASSETTNot AvailableStart: 07-16-2024 End: 93-47-2983Ooxczi outpatient new 30 minutesAudieharrisonbryce hospital Blane Macdonald UTILIZATION ENGINEER-G[employer]NER'S MATE M Work Phone: [facility] General SurgeryComment on above: Vomiting in adult (Primary Dx); History of gastric ulcer; Chronic GERD; Hiatal hernia; Dysphagia, unspecified typeStart: 07-16-2024 End: 95-11-6510rdtmodfzdqRKHGLDHLake [facility] Start: 07-15-2024 End: 22-48-5527yxdohcdrgpTQIGH A HUDDLESTONNot AvailableStart: 07-15-2024 End: 15-06-1990Dmxzkh outpatient visit 10 minutesCleve Sheth DO Work Phone: noms CI ORTHOPAEDICSComment on above:Chronic right hip pain (Primary Dx); Sacral insufficiency fracture with routine healing, subsequent encounter; Closed fracture of multiple pubic rami, right, initial encounter ([facility])Start: 07-14-2024 End: 50-07-7650Ohngol flowsheetChristopher Shama DO Work Phone: [facility] [facility]TEStart: 07-14-2024 End: 41-30-3972Hsdorm flowsheetChristopher Shama DO Work Phone: noMS DANIELLE [facility] ROUTEStart: 07-14-2024 End: 75-21-3474Ootgkf outpatient new 30 minutesChristopher Shama DO Work Phone: [facility] STATE ROUTEComment on above:Paresthesia (Primary Dx)Start: 07-14-2024 End: 00-83-9509gpgmefxckdBKAIIRKKSLA HASSETTNot AvailableStart: 06-17-2024 End: 99-48-3129Szpoqw flowsheetCleve Sheth DO Work Phone: [facility] CI ORTHOPAEDICSStart: 06-17-2024 End: 85-92-6140Xumavx flowsheetCleve Sheth DO Work Phone: n[facility] CI ORTHOPAEDICSStart: 06-17-2024 End: 87-80-2132Ocxnmp outpatient visit 25 minutesJabernard Sheth DO Work Phone: noMS CI ORTHOPAEDICSComment on above:Chronic right hip pain (Primary Dx); Sacral insufficiency fracture, initial encounter ([facility]); Closed fracture of multiple pubic rami, right, initial encounter ([facility])Start: 06-17-2024 End: 87-39-3334iwdatexvnwKAMCJ A HUDDLESTONNot AvailableStart: 06-13-2024 End: 56-12-5159Kwidrueay department patient visitDOJEISONLAZARA Marmolejo VietCentury City Hospitaltart: 06-12-2024 End: 17-80-4187aqijrmgjxxPLSWP A HUDDLESTONNot AvailableStart: 06-05-2024 End: 96-37-0715Qfncafmlu encounterSammaadela Case PTNOMS CI PTComment on above:PT [...] to fractures in bones. )Start: 06-05-2024 End: 08-65-3121Bmuxen outpatient visit 15 minutesCleve Sheth DO Work Phone: NOHH ORTHOPAEDICSComment on above:Chronic right hip pain (Primary Dx)Start: 06-05-2024 End: 94-79-0481jnjjqbpzooGHTQR A HUDDLESTONNot AvailableStart: 2024 End: 71-60-8105ybglsadxzvRUIQOAdan SHETHNot AvailableStart: 04-01-2024 End: 84-40-5932izzfyjihypUGXJH A HUDDLESTONNot AvailableStart: 82-45-4590Xwr- patient / Non-visitMD Krzysztof Hoy Work Phone: [facility] Work Phone: Start: 03-26-2024 End: 45-14-1196Mdshizlqq to same day surgery centerMD Krzysztof Hoy Work Phone: [facility] Work Phone: Start: 03-26-2024 End: 81-70-9635azpahsorarIN Krzysztof M Hoy Work Phone: [facility] Work Phone: Start: 02-19-2024 End: 51-18-7048wczyoesnrlHZ Krzysztof M Hoy Work Phone: [facility] Work Phone: Start: 02-19-2024 End: 91-22-1239Zzqnzrj encounter procedureMD Krzysztof Hoy Work Phone: [facility] Work Phone: Start: 86-35-9474Arn-patient / Non-visitMD Krzysztof Hoy Work Phone: [facility] Work Phone: Start: 02-05-2024 End: 67-90-3312Gkczcshfw to same day surgery centerMD Krzysztof Thompson Work Phone: [facility] Work Phone: Start: 02-05-2024 End: 83-53-1318ppewzqqftnZP Krzyzstof Marmolejo Hoanastasia Work Phone: [facility] Work Phone: Start: 37-26-7705Dhr-patient / Non-visitMD Krzysztof Thompson Work Phone: [facility] Work Phone: Start: 01-09-2024 End: 59-41-4158tudxcxfjzsBMSH DUCKETTNot AvailableStart: 09-98-2984yksulibcxz JN GARCIA .Facility:V4Itdwj: 01-15-2023 End: 96-09-4181nlzcdsjbbwIGBGUN RODRIGUEZ .Facility:M0Lougk: 01-10-2023 End: 77-40-8594hwuascdqueRL KRZYSZTOF HOY .Facility:W2Ihiro: 12-15-2022 End: 38-72-8978jtavrzjmbbBXKFLR RODRIGUEZ .Facility:R0Rpvee: 12-15-2022 [facility]: 12-05-2022 End: 32-32-5383ssqfmgfrbiEX KRZYSZTOF HOY .Facility:D8Yghvx: 11-25-2022 End: 90-03-5904Purlgzulnb and management of inpatientDR KRZYSZTOF HOY .Facility:H1 Start: 11-13-2022 End: 45-96-2877rygwwtdhntSW KRZYSZTOF HOY .Facility:O2Zvksi: 11-09-2022 End: 36-45-0781tyrgdmqllcQQ KZRYSZTOF HOY .Facility:F0Aaqtv: 10-20-2022 End: 55-63-9245knulxubyfsKV KRZYSZTOF HOY .Facility:G1Rfcaq: 10-19-2022 End: 10-36-5288zrpnjyxfqzDL KRZYSZTOF HOY .Facility:W0Laseu: 10-18-2022 End: 64-14-5815wqbspesxzcUN KRZYSZTOF HOY .Facility:K3Cewyi: 09-25-2022 End: 22-72-3135emfeluncooNQ KRZYSZTOF HOY .Facility:M9Kznve: 07-25-2022 End: 08-95-0115vkgdcwmmjxAB KRZYSZTOF HOY .Facility:A8Vqpyy: 05-26-2022 End: 12-19-8828btdhnhqrgmQU KRZYSZTOF HOY .Facility:S9Gnlhl: 05-25-2022 End: 43-08-4572mbbvqlbhtnXO KRZYSZTOF HOY .Facility:Q7Xpydy: 05-24-2022 End: 12-29-2475zcjkykhwmeIT KRZYSZTOF HOY .Facility:T7Tdbeh: 05-11-2022 End: 17-80-7170xutnfptrocEO KRZYSZTOF HOY .Facility:A3Zmryn: 02-14-2022 End: 01-11-8017arkhuwdadoSA KRZYSZTOF HOY .Facility:Q1Rvgsn: 11-19-2018 End: 43-56-4539Lmmtoko encounter procedurePROVIDER UNKNOWNFacility:UTNOR[facility] CENTERtart: 11-13-2018 End: 85-51-5010Skmwote encounter procedureDEFAULT PHYSICIANFacility:[facility]tart: 10-31-2018 End: 88-45-6552Hzpujwa encounter procedureDEFAULT PHYSICIANFacility:[facility]tart: 09-23-2018 End: 90-14-6381Kpnnqcc encounter procedureDEFAULT PHYSICIANFacility:[facility]tart: 09-05-2018 End: 09-85-0413Ejdxnmm encounter procedureDEFAULT PHYSICIANFacility:[facility] Procedures DateProcedureProcedure DetailPerforming ClinicianStart: 09-53-4894Dqabo X-ray of right shoulderKrzysztof Thompson MD Work Phone: [phone]-art: 21-88-0145Q-ray of thoracic spine, two views Krzysztof Thompson MD Work Phone: Start: 55-99-4585C-ray of lumbar spine, six views including bending viewsKrzysztof Thompson MD Work Phone: Start: 88-52-6400V-ray of cervical spineDoivis Thompson MD Work Phone: Start: 22-14-1623Bdqm energy X-ray absorptiometry Krzysztof Thompson MD Work Phone: Start: 07-17-2024 End: 24-26-4793Heeiec emg ea extremty w/paraspinl area completeChristopher Shama DO Work Phone: Start: 12-73-6151Xerog hip unilateral with pelvis 2-3 viewsJames A Meryl DO Work Phone: Start: 25-55-4729PttgefzyimwAui In System Ref Prov Start: 60-15-1727Wsjbwiliw colonoscopyMD Krzysztof Thompson Work Phone: Start: 78-59-6713OahzyqxctwewjqaiqwzxdxtphrZD Krzysztof Hoy Work Phone: Plan of Treatment DateCare ActivityDetailAuthorStart: 27-77-7308MTqL,Tdap and Td Vaccines (2 - Td or Tdap)DTaP,Tdap and Td Vaccines (2 - Td or Tdap)[facility] SystemStart: 31-61-9849Yhlzgay ScreeningTobacco ScreeningProMedica Health SystemStart: 68-53-3492Bikqzxi ScreeningTobacco ScreeningProMedica Health SystemStart: 93-01-6329Ldcpyvt ScreeningTobacco ScreeningProMedica Health SystemStart: 07-30-2025 End: 37-48-1267Hzktyhs encounter tmtltonby50/20/2025 11:00 AM EST Office Visit [facility] [address] [place] [phone] Bon Covarrubias MD [address] [place] [address], [address] [place], [place] [phone] (Work) [facility] SurgeryStart: 39-61-4939Ihsnyrx ScreeningTobacco ScreeningProMedica Health SystemStart: 70-52-8589Qnasyqt ScreeningTobacco ScreeningLakeHealth [facility] System Start: 71-47-1865Ojxnnbj ScreeningTobacco ScreeningAngel Medical Centertart: 10-67-2187Bctfhujl identified in Urine by CultureUrine CultureMercy Hospitaltart: 55-51-2421Onqpy cultureMercy Hospitaltart: 72-24-4386XZAZC-19 Vaccine ( season)COVID-19 Vaccine ( season)[facility] Centertart: 25-28-8716Ttjbmdguk vaccination Influenza VaccineAngel Medical Centertart: 32-09-6915Tjxhqjs referral [facility] Work Phone: Start: 95-11-3947O-ray of thoracic spine, two viewsXR thoracic spine 2VMercy Hospitaltart: 04-09-0704BR Thoracic spine 2 ViewsMercy Hospitaltart: 92-27-1522Qfdqbpk referral [facility] Work Phone: Start: 08-11-2024 End: 77-42-2036Ketvgja encounter ztmupcyod07/02/2024 2:15 PM EST [facility] [address] [place] [phone] Raven Sesay [address] [place], [place] [id number] [facility] ROUTEStart: 07-28-2024 End: 91-37-4361Ypvvefnsy to same day surgery khcesl6007/28/2024 9:15 AM EST - 07/28/2024 9:45 AM EST Surgery [facility] - Surgery [address] [place] [address] Nidia White MD [address] [place] [phone] ESOPHAGOGASTRODUODENOSCOPY DIAGNOSTIC [47910 (CPT )][facility]icMedical Center of the RockiesComment on above:ESOPHAGOGASTRODUODENOSCOPY DIAGNOSTIC [83104 (CPT )]Start: 07-28-2024 End: 81-75-7185Cpiouvcutjefmpjldxazxzowgg transoral diagnostic ESOPHAGOGASTRODUODENOSCOPY DIAGNOSTIC vomiting, gastroesophageal reflux, dysphagia 07/28/2024 9:15 AM ESTFREMONT SURGERYStart: 53-93-4717Dwfmcrxloc hospital visit by /18/2024 9:15 AM EST Hospital Encounter [facility] - Surgery [address] [place] [phone] Nidia White MD [address] [place] [address] [facility]: 07-22-2024 End: 28-99-7259ofmqnwhlxa32/12/2024 3:10 PM EST Support Visit [facility] - [facility] Admit [address] [place] [address] [facility] AdmitStart: 07-17-2024 End: 73-58-8350Gdcvsge encounter procedureNOMS ICKESBURG STATE ROUTEComment on above:ArrivedStart: 07-15-2024 End: 58-71-8117Yyrcdhk encounter procedureNOMS CI ORTHOPAEDICSStart: 07-14-2024 End: 47-74-5354GQS 1 ExtremeityEMG 1 Extremeity Neurology Routine Paresthesia Expected: 07/14/2024, Expires: 07/14/2025[facility] Work Phone: comment on above:Expected: 07/14/2024, Expires: 07/14/2025Start: 07-14-2024 End: 98-56-7575Qikrwxd encounter procedureNOMS [facility] STATE ROUTEComment on above:Brachial plexopathy; Ulnar neuropathy of left upper extremityStart: 06-17-2024 End: 40-56-7760Tydzqyf encounter xexeijmwu51/08/2024 1:30 PM EDT Office Visit [facility] [address] [facility] [address] [place] [address] Cleve Sheth, [address] [facility] [address] [place] [address] Chronic right hip pain (Primary Dx); Sacral insufficiency fracture, initial encounter (CMS/HCC); Closed fracture of multiple pubic rami, right, initial encounter (CMS/HCC)[facility] Comment on above:Chronic right hip pain (Primary Dx); Sacral insufficiency fracture, initial encounter (CMS/HCC); Closed fracture of multiple pubic rami, right, initial encounter (CMS/HCC)Start: 06-16-2024 End: 81-72-6290Gokmqbx encounter /07/2024 12:30 PM EDT Office Visit [facility] [address] [place] [address] Raven Sesay DO [address] [place] [address] [facility]: 05-11-2024 COVID-19 Vaccine ( season)COVID-19 Vaccine ( season) [facility] SystemStart: 41-89-8834Shbuarmce vaccinationInfluenza Vaccine (#1)[facility] HealthcareStart: 52-27-5111TxhonywwtMercy Hospitaltart: 62-02-6341YggjoamqnUniversity [facility]als [facility] CenterStart: 69-88-1243NUQ ( or age 60+ yrs) (1 - 1-dose 75+ series)RSV ( or age 60+ yrs) (1 - 1-dose 75+ series)[facility] SystemStart: 33-80-5783Riylwnjwdbjign of varicella zoster vaccineZoster (Shingles) Vaccine (3 of 3)[facility] SystemStart: 19-71-8016Ytnh Risk ScreeningFall Risk ScreeningLakeHealth Beachwood Medical Center SystemStart: 16-68-7036BZiQ,Tdap and Td Vaccines (1 - Tdap)DTaP,Tdap and Td Vaccines (1 - Tdap)[facility]: 44-38-0662Glsikyjcvj ScreeningDepression ScreeningLakeHealth [facility]wood [facility] System End: 87-02-9803IbhjixvlvaaytobvpvlcqlqfpaULM GI Routine Vomiting in adult Chronic GERD Dysphagia, unspecified type 1 Occurrences starting 07/16/2024 until 07/16/2025[facility] Work Phone: Comment on above:1 Occurrences starting 07/16/2024 until 07/16/2025Patient EducationUniversity Hospitals [facility] Work Phone: [facility] Work Phone: XR Shoulder - right ViewsSt. [facility] Immunizations Immunization DateImmunizationNotesCare MkkzrajxEupvuglp22-72-5588ovjonlrak virus vaccine, unspecified formulationChristopher Shama DO Work Phone: noMetropolitan Saint Louis Psychiatric CenterPhbwolwndj25-89-2448Pnqujduul, Seasonal, Quadrivalent, AdjuvantedJames Meryl DO Work Phone: [facility] CenterNndvldsmgd26-06-7888ccngqqiqu virus vaccine, unspecified formulationJames Meryl DO Work Phone: [facility] CenterYpvnmqceik30-82-4757svphahoab, high dose seasonal, preservative-freeJames Meryl DO Work Phone: [facility] CenterEvpewrqcid63-43-0996Untuxfkjm, High-dose Seasonal, Quadrivalent, Preservative FreeJames Meryl DO Work Phone: [facility] CenterNajvzsaqhc18-04-3151Vtsirdcby, High-dose Seasonal, Quadrivalent, Preservative FreeJames Meryl DO Work Phone: [facility] CenterNbdtmrzong94-95-4113RJON-WgG-0, UnspecifiedJames Meryl DO Work Phone: [facility] CenterHaputxplif80-63-9913ffrchw vaccine, unspecified formulationKaitlin Macdonald UTILIZATION ENGINEER-G[employer]NER'S MATE M Work Phone: [facility] HealthNxetie46-12-0849mvivplycp, high dose seasonal, preservative-freeJames Meryl DO Work Phone: [facility] CenterHkedamflzb90-48-2285pxrtkxlvf, injectable, quadrivalent, preservative freeJames Meryl DO Work Phone: [facility] CenterDptoxvmlxd86-37-4944dryohybly, high dose seasonal, preservative-freeJames Meryl DO Work Phone: [phone] [place], [place] [address]Lgwkfgqozg32-90-4746zibjoltrd, high dose seasonal, preservative-freeJames Meryl DO Work Phone: [phone] [place], [place] [address]Pqlqfambxi97-57-6585jfghokpzqjpd conjugate vaccine, 13 valentJames Meryl DO Work Phone: [facility] CenterTfvstnxiti99-08-5496nehabwvkf, seasonal, injectableJames Meryl DO Work Phone: [phone] [place], [place] [address]Qomtuzmzyk05-34-2651vtyfsh vaccine, liveJames [place] DO Work Phone: [facility] CenterKhylnljbhe93-91-1475poemxnesfuta polysaccharide vaccine, 23 valentJaHCA [facility] DO Work Phone: [phone] [place], [place] [address]Xemwqwoymn59-23-3673esvibqtr influenza, intradermal, preservative freeSuburban Community Hospital DO Work Phone: [phone] [place] [address] Payers DatePayer CategoryPayerPolicy [id number]-pay2022MedicareANTHEM MEDICARE ADVANTAGE ANTHEM MEDICARE ADVANTAGE [id number] 2021-Present [address] [id number] 2022Medicare (Managed Care)ANTHEM MEDICARE ADVANTAGE Member Subscriber Plan / Payer (Effective 2021-Present) Name: Sheila Mac Relation to Subscriber: Self Name: Sheila Mac SubscriberID: [id number] Payer ID: Not on file Group ID: [id number] Type: Not on file Address: [address] [place] [id number] 2018Medicare HMOANTHEM MEDICARE Member Subscriber Plan / Payer (Effective 2017-Present) Name: Lopez Mac Relation to Subscriber: Self Name: Sheila Mac Payer ID: [id number] (NAIC) Group ID: [id number] Type: Not on file Address: [address] [place] [id number] [id number] 2..1.406672.3.579.2. [id number] 2..1.796101.3.57[id number] 2..1.292722.3.579.2.[id number] 2..1.401709.3.579.2.78367-66-9280Gwdyagv32218005 2..1.195979.3.579.2.17378-89-3119Oqwfpaw2161616 2..1.896620.3.579.2.68921-78-0978Hqbltsg1536914 2.0.1.452779.3.579.2.46025-62-5741Qjmjwmy7998104 2.0.1.010879.3.579.2.15544-99-2489Ryuqkxw4576080 2.16840.1.794769.3.579.2.07609-82-8057Cwgatqg8385001 2.16.840.1.789797.3.579.2.29990-04-8822Owtfwsw9442397 2.16840.1.146470.3.579.2.73225-15-9865Ogtdene8249286 2.16840.1.959163.3.579.2.43841-87-8726Tvrtcdi1833912 2.840.1.404024.3.579.2.84856-53-1739Xxynxqj4589705 2.840.1.282731.3.579.2.26999-91-7082Zamtxyj2892577 2.840.1.469169.3.579.2.29127-62-2074Jxcuhtt5759330 2.840.1.065110.3.579.2.57680-52-5455Hcepnbk3538019 2.840.1.746491.3.579.2.21695-31-3882Rywouhn1612710 2.840.1.145863.3.579.2.43531-58-8378Hfrvqfg6701872 2.840.1.293375.3.579.2.09424-15-8193Ejozjft8826934 2.16840.1.250025.3.579.2.96905-76-6634Etvdnre4033535 2.16840.1.617602.3.579.2.82859-88-9419Wwotmml9510113 2.16840.1.299737.3.579.2.63306-53-3983Cishmzk5521651 2.16.840.1.467233.3.579.2.63174-14-5531Qnovier6555396 2.840.1.657966.3.579.2.80184-49-2161Ojuynpy17816728 2.0.1.871828.3.579.2.616332-23-0521Qtotjps03613196 2.0.1.296322.3.579.2.803559-54-6097Kijuyrt34432978 2.0.1.974591.3.579.2.200496-86-1136Pepyzlt2613094 2..1.449707.3.579.2.126321-94-9584Lwiuubz9661633 2..1.811751.3.579.2.452735-85-5486Rywxsoq6683583 2.0.1.658159.3.579.2.216919-51-0213Ywkajud2438930 2.0.1.993329.3.579.2.170727-72-5967Tmootbc9545395 2..1.411139.3.579.2.439278-38-7520Bonchiz2319936 2.0.1.966950.3.579.2.412079-13-5640Qlpgami0950981 2.0.1.455275.3.579.2.117200-09-6518Juynjcn7025383 2.840.1.151765.3.579.2.106504-55-6898Tmcrlmg3859066 2.840.1.861562.3.579.2.145683-89-5873Jxyojts0531035 2.16.840.1.419366.3.579.2.806752-35-0518Olsezgq8443189 2.16.840.1.866580.3.579.2.788860-67-6531Xloxtnp619200962 2.16.840.1.628972.3.579.2.473529-88-5993Ydemxlj257648113 2.840.1.578020.3.579.2.897764-59-4702Chrmeci41052307 2.16840.1.7062[id number] 2.16840.1.920536.3.579.2.426Jecwzvh42901696 2.840.1.449879.3.579.2.531 Vyqnqmb04172588 2.16840.1.639499.3.579.2.606Pipkrhg97966297 2.16840.1.910599.3.579.2.531 Social History DateTypeDetailFacilityStart: 09-28-2017 End: 27-61-4669Fcdmjrt smoking status NHISNever smoked tobacco (finding) [facility]: 74-11-1705Ofn Assigned At BirthFemale [facility]: [facility]24 End: 77-93-1539Sjbizkkuz beverage intakeLifetime non-drinker (finding)[facility] HealthcareStart: 10-21-2020 End: 33-94-0403Oasizcg of Social functionNOMS HealthcareStart: 10-21-2020 End: 81-72-0466Dhdspba use panelCASTLEVIEW HOSPITAL HealthcareStart: 15-60-5507Uhl assigned at birthNot on fileCASTLEVIEW HOSPITAL HealthcareStart: 85-44-7221Sxdcdco use and exposure Smokeless tobacco non-userProRegional Medical Center Of Jacksonville Health SystemStart: 07-16-2024 End: 83-36-3846Scjiwdxnb beverage intakeCurrent non-drinker of alcohol (finding) [facility] HealthChildcareUnknowSentara Halifax Regional Hospitaltart: 04-15-2015 SexFemale (finding)[facility] Goals DatePatient GoalDesired Activity/State Clinical Notes 02-14-2022 to 07-15-2025 Note Date & FectBewdWhetzivr13-59-4246 Miscellaneous Notes* Telephone Encounter - Jena Camejo CMA - 07/15/2025 10:33 AM EST Sheila called the office and she was confused on if she should keep her appointment with [facility] for her GI issues, or if she should try to find someone closer to her home. Her friend told her that their was a surgeon in [place] that is not a lot closer to her. I spoke on her speaker phone with her, her , & her son Cleve who will be driving her to the appointment. He does know how to use [employer]. While she does understand it's her decision where she goes, she was asking for some advise. I told her if she stays in [facility] they'll have easy access to everything [...] & let us know. documented in this encounterKettering Health11-05-2025 Telephone encounter Note* Telephone Encounter - Jena Camejo CMA - 07/15/2025 10:33 AM EST Sheila called the office and she was confused on if she should keep her appointment with [facility] for her GI issues, or if she should try to find someone closer to her home. Her friend told her that their was a surgeon in [place] that is not a lot closer to her. I spoke on her speaker phone with her, her , & her son Cleve who will be driving her to the appointment. He does know how to use [employer]. While she does understand it's her decision where she goes, she was asking for some advise. I told her if she stays in [facility] they'll have easy access to everything [...] they have any further questions or concerns [facility]11-05-2025 Telephone encounter Note* Telephone Encounter - Jena Camejo CMA - 07/15/2025 10:33 AM EST I did try to call the patient to see if she wants to add her son as an emergency contact. I left her a message to call us & let us know. [facility]10-14-2025 History of Present illness Narrative* Kaitlin Macdonald, UTILIZATION ENGINEER-GUNNER'S MATE M - 06/23/2025 10:30 AM EDT Images from [...] was March [address] Sanchez at [facility]. Sigmoid diverticular stricture noted, able to pass [...] Back pain COPD (chronic obstructive pulmonary disease) ([facility]) Diverticulitis Fecal incontinence GERD (gastroesophageal reflux disease) Hyperlipidemia Hypertension Pancreatitis Peptic ulceration Pneumonia PONV (postoperative nausea and vomiting) Prolonged emergence from general anesthesia Rectal bleeding Stroke ([facility]) x2, patient states light strokes Visual impairment Past Surgical History: Procedure Laterality Date APPENDECTOMY BACK SURGERY LOWER CHOLECYSTECTOMY 2016 patient states did not have this surgery COLONOSCOPY COLONOSCOPY N/A 05/26/2021 Performed by Freeman Michelle DO at [facility] EGD N/A 10/01/2017 Performed by Freeman Michelle DO at [facility] ESOPHAGOGASTRODUODENOSCOPY ESOPHAGOGASTRODUODENOSCOPY N/A 05/26/2021 Performed by Freeman Michelle DO at [facility] ESOPHAGOGASTRODUODENOSCOPY DIAGNOSTIC N/A 07/28/2024 Performed by [...] Interpersonal Safety: Unknown (11/01/2023) [facility] Safety [facility] Environment Fear of Current or [...] patient/family/caregiver Referring and communicating with other health home health care coordinator Incontinence of feces, unspecified fecal incontinence type [R15.9] TAMIE REYES [facility] [place] This note was created with the assistance of a speech recognition program. While intending to generate a timely document that accurately reflects the content of the visit, no guarantee can be provided that every grammatical or spelling mistake has been or will be identified or corrected. Thank you for your understanding. TAMIE Reyes 06/23/25 1034 documented in this encounterLakeHealth Beachwood [facility] Center Xdjtie33-11-6677 Evaluation note* Diagnosis Onset Date Resolution Status Admit Date Left lumbosacral radiculopathy acuteJune 2024 2:18pmSpondylolisthesis, lumbar regionacuteJune 2024 2:18pmChronic painacuteJuly 2024 7:53amMyalgiaacuteJuly 2024 7:53am Thoracic back painacuteJuly 2024 7:53am [facility] Work Phone: 1(467) 682-944306-12-2025 Evaluation note* Diagnosis Onset Date Resolution Status Admit Date Left lumbosacral radiculopathy acuteJune 2024 2:18pmSpondylolisthesis, lumbar regionacuteJune 2024 2:18pmChronic painacuteJuly 2024 7:53amMyalgiaacuteJuly 2024 7:53am Thoracic back painacuteJuly 2024 7:53amLeft lumbosacral radiculopathyacute March 26, 2025 2:23pmSpondylolisthesis, lumbar regionacuteJuly 2024 2:23pm [facility] Work Phone: 1(655) 701-469206-12-2025 Evaluation note* Diagnosis Onset Date Resolution Status Admit Date Left lumbosacral radiculopathy acuteJune 2024 2:18pmSpondylolisthesis, lumbar regionacuteJune 2024 2:18pmChronic painacuteJuly 2024 7:53amMyalgiaacuteJuly 2024 7:53am Thoracic back painacuteJuly 2024 7:53amLeft lumbosacral radiculopathyacute March 26, 2025 2:23pmSpondylolisthesis, lumbar regionacuteJuly 2024 2:23pmChronic painacuteJuly 2024 8:55amMyalgiaacuteJuly 2024 8:55am Shoulder pain, rightacuteJuly 2024 8:55amThoracic back painacuteJuly 2024 8:55am [facility] Work Phone: 1(883) 624-877706-12-2025 Evaluation note* Diagnosis Onset Date Resolution Status [...] 2024 1:29pmPostmenopausalacuteAugust 2024 1:29pmStomach ulceracuteAugust 2024 1:29pm [facility] Work Phone: 1(585) 291-483206-12-2025 Evaluation note* Diagnosis Onset Date Resolution Status [...] rightacuteAugust 2024 8:05amThoracic back painacuteAugust 2024 8:05am [facility] Work Phone: 1(174) 271-483704-17-2025 History of Present illness Narrative* Kaitlin Macdonald, UTILIZATION ENGINEER-G[employer]NER'[employer] MATE M - 12/25/2024 10:00 AM EDT Images from [...] was March [address] Sanchez at [facility]. Sigmoid diverticular stricture noted, able to pass [...] Back pain COPD (chronic obstructive pulmonary disease) ([facility]) Diverticulitis GERD (gastroesophageal reflux disease) Hyperlipidemia Hypertension Pancreatitis Peptic ulceration Pneumonia PONV (postoperative nausea and vomiting) Prolonged emergence from general anesthesia Rectal bleeding Stroke ([facility]) x2, patient states light strokes Visual impairment Past Surgical History: Procedure Laterality Date APPENDECTOMY BACK SURGERY LOWER CHOLECYSTECTOMY 2017 patient states did not have this surgery COLONOSCOPY COLONOSCOPY N/A 05/26/2021 Performed by Freeman Michelle DO at [facility] EGD N/A 10/01/2017 Performed by Freeman Michelle DO at [facility] ESOPHAGOGASTRODUODENOSCOPY ESOPHAGOGASTRODUODENOSCOPY N/A 05/26/2021 Performed by Freeman Michelle DO at [facility] ESOPHAGOGASTRODUODENOSCOPY DIAGNOSTIC N/A 07/28/2024 Performed by Nidia White MD at [facility] HYSTERECTOMY KNEE ARTHROSCOPY Right patient denies [...] Interpersonal Safety: Unknown (11/01/2023) [facility] Safety & Environment Fear of Current or [...] patient/family/caregiver Referring and communicating with other health home health care coordinator Bright red blood per rectum [K62.5] TAMIE REYES [facility] General Surgery [place] This note was created with the assistance of a speech recognition program. While intending to generate a timely document that accurately reflects the content of the visit, no guarantee can be provided that every grammatical or spelling mistake has been or will be identified or corrected. Thank you for your understanding. TAMIE Reyes 12/31/24 1056 documented in this encounterKettering Health12-02-2024 History of Present illness Narrative* Raven Sesay [...] headaches. Past Medical History: Diagnosis Date Diabetes ([facility]) Diverticulitis Gastric ulcer GERD (gastroesophageal reflux disease) HTN (hypertension) ([facility]) Osteoporosis (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 RLE Strength illopsoas, quadriceps, tibialis [...] reflex 0 . Metzger's sign negative. Coordination: Lqfkws-xx-siau testing and rapid alternating movements are normal Gait: Patient ambulates with a walker Review and summary of old records: EMG of the left upper extremity on 07/17/2024: A remote C8 radiculopathy on the left which is vkbf-zm-uecqzllp. No evidence of plexopathy or mononeuropathy. Venous [...] plan, and return instructions documented in this encounterNevada Regional Medical CenterXlbakxfiep74-76-4713 Miscellaneous Notes* Telephone Encounter - Angelica Dawson [...] with no further questions. documented in this encounterKettering Health11-25-2024 Telephone encounter Note* Telephone Encounter - Angelica Dawson CMA - 08/04/2024 2:31 PM EST ----- Message from Dr. Nidia White MD sent at 08/01/2024 12:06 PM EST ----- Regarding: Pathology Please let patient know that biopsies from EGD were negative for any issues. Thank you ----- Message ----- From: Interface - Lab Results/Orders In Sent: 07/31/2024 8:17 PM EST To: Nidia White MD [facility]11-25-2024 Telephone encounter Note* Telephone Encounter - Angelica Dawson CMA - 08/04/2024 2:31 PM EST Spoke with patient regarding pathology results. Patient verbally understood with no further questions. [employer]11-12-2024 Miscellaneous Notes* Perioperative Nursing Note - Sakina Marvin RN - 07/22/2024 3:10 PM EST Preoperative Education Checklist- General Surgery date: 07/28/24 Surgery time: 914 Arrival time: 714 1. Bring a photo ID and your insurance card with you the day of surgery. You will check in at the main lobby of the [facility]- registration desk is straight ahead as soon as you walk in. Tell them you are here for surgery. 2. If you have a Living Will/Durable Power of [place] Helper for Health Care that is not on [...] please call the Preadmission Testing office at [phone], Mon.-Fri. 7 a.m.-3 p.m. Leave a voicemail [...] days prior to procedure documented in this encounterKettering Health11-12-2024 Nurse Note* Perioperative Nursing Note - Sakina Marvin RN - 07/22/2024 3:10 PM EST Preoperative Education Checklist- General Surgery date: 07/28/24 Surgery time: 914 Arrival time: 714 1. Bring a photo ID and your insurance card with you the day of surgery. You will check in at the main lobby of the [facility]- registration desk is straight ahead as soon as you walk in. Tell them you are here for surgery. 2. If you have a Living Will/Durable Power of [place] Helper for Health Care that is not on [...] please call the Preadmission Testing office at [phone], Mon.-Fri. 7 a.m.-3 p.m. Leave a voicemail [...] Stop taking 0 days prior to procedure [facility]11-07-2024 History of Present illness Narrative* KALI Wolfe - 07/17/2024 9:00 AM EST Images from the original note were not included. Reason for Appointment: EMG Patient: Sheila Mac : 1950 EMG Computer: [employer] Referring Physician: Dr. Raven Sesay EMG: CINTHYA manager entry: Jarrett Palmer RT(R) Office Location: [place] Reason for EMG: c/o numbness/tingling in left hand especially in 3rd 4th 5th digits, weakness in left hand. Hx of surgery to neck. No hx of DM. Taking ASA & Plavix. Comments: Procedure was explained to the patient & who expressed understanding. Patientappeared to have tolerated the test well despite some discomfort due to the nature of the test. documented in this encounterNevada Regional Medical CenterIkuftyuibz86-51-8104 History of Present illness Narrative* Kaitlin Macdonald, [...] Diagnosis Date COPD (chronic obstructive pulmonary disease) ([facility]) Diverticulitis GERD (gastroesophageal reflux disease) Hyperlipidemia Hypertension Pancreatitis Peptic ulceration PONV (postoperative nausea and vomiting) Stroke ([facility]) x2, patient states light strokes Visual impairment Past Surgical History: Procedure Laterality Date APPENDECTOMY BACK SURGERY LOWER CHOLECYSTECTOMY 2017 COLONOSCOPY COLONOSCOPY N/A 05/26/2021 Performed by Freeman Michelle DO at [facility] EGD N/A 10/01/2017 Performed by Freeman Michelle DO at [facility] ESOPHAGOGASTRODUODENOSCOPY ESOPHAGOGASTRODUODENOSCOPY N/A 05/26/2021 Performed by Freeman Michelle DO at [facility] HYSTERECTOMY KNEE ARTHROSCOPY Right patient denies [...] Unknown (11/01/2023) Received from [facility] Safety & Environment Fear of [...] patient/family/caregiver Referring and communicating with other health home health care coordinator Vomiting in adult [R11.10] KAITLIN MACDONALD, UTILIZATION ENGINEER-GUNNER'S MATE M [facility] General Surgery [place] This note was created with the assistance of a speech recognition program. While intending to generate a timely document that accurately reflects the content of the visit, no guarantee can be provided that every grammatical or spelling mistake has been or will be identified or corrected. Thank you for your understanding. TAMIE Reyes 07/16/24 1232 documented in this encounterKettering Health11-05-2024 History of Present illness Narrative* Cleve Sheth, DO - 07/15/2024 10:30 AM EST Images from the original note were not included. HISTORY OF PRESENT ILLNESS: Sheila Mac is an 74 y.o. @ female. Chief complaint RT hip pain RT hip: using calcitonin NS Pt went to [facility] ER 06/13, X-rays done pelvis and lumbar. RX for lidoderm patches given, she states she could hardly walk. RT hip pain x 3-4 months, worsened on 05/31 after going to the grocery store. Denies injury. She hadinjections at [facility] in April without relief. She saw Dr Thompson 06/02 and 06/04, given IM injections-no relief. She is walking better, using rollator. Mild ache in the thigh. Using pain spray daily Saw Dr Thompson 06/02 and 06/04. XR done at [facility] 06/02/24. Using hot icy hot. Given IM torodol, Tramadol RX and PT ordered, XR [place] [facility] 06/05/24, MRI [facility] 06/12/24, [facility] ER 06/13/24, lidoderm patches, calcitonin [...] Medical History: Diagnosis Date Diabetes ([facility]) Diverticulitis Gastric ulcer GERD (gastroesophageal reflux disease) HTN (hypertension) ([facility]) Osteoporosis ([facility] Pancreatitis Rheumatic fever ALLERGIES: Allergies Allergen Reactions Iodinated Contrast Media Morphine Penicillins Nsaids Rash VITALS: Visit Vitals Smoking Status Never PHYSICAL EXAM: Ortho Exam RIGHT HIP Using Rollator Strength 4/5 ROM 30 IR and 30 ER IMAGING: June 05, 2024 x-rays from the [place] office AP pelvis and lateral of the right hip demonstrate an intact hip joint space. There are no fractures detected. The bone has an osteopenic appearance.The joint spaces are symmetric. There is no obvious effusion or soft tissue swelling. Impression: No acute findings on x-rays of the right hip Hemal Sheth D.O. MRI of the right hip from the [facility] center. There is a sacral insufficiency [...] pubic rami, right, initial encounter ([facility]) S32.591A calcitonin, salmon, (Miacalcin) 200 [...] Dr. Sheth/ashley Sheth D.O. documented in this encounterNevada Regional Medical [id number] History of Present illness Narrative* Raven Sesay [...] headaches. Past Medical History: Diagnosis Date Diabetes ([facility]) Diverticulitis Gastric ulcer GERD (gastroesophageal reflux disease) HTN (hypertension) ([facility]) Osteoporosis (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 RLE Strength illopsoas, quadriceps, tibialis [...] reflex 0 . Metzger's sign negative. Coordination: Kmktbe-eb-wbqh testing and rapid alternating movements are normal [...] plan, and return instructions documented in this encounterNevada Regional Medical CenterTlrimtdjdz36-01-1816 History of Present illness Narrative* Cleve Sheth DO - 06/17/2024 1:30 PM EDT Images from the original note were not included. HISTORY OF PRESENT ILLNESS: Sheila Mac is an 74 y.o. @ female. Chief complaint RT hip pain RT hip: here for MRI results [facility] 06/12/24 Pt went to [facility] ER 06/13, X-rays done pelvis and lumbar. RX for lidoderm patches given, she states she could hardly walk. RT hip pain x 2-3 months, worsened on 05/31 after going to the grocery store. Denies injury. She hadinjections at [facility] in April without relief. She saw [...] Thompson 06/02 and 06/04. XR done at [facility] 06/02/24. Using hot icy hot. Given IM torodol, Tramadol RX and PT ordered, XR [facility] 06/05/24, MRI [facility] 06/12/24, [facility] 06/13/24, lidoderm patches I [...] Medical History: Diagnosis Date Diabetes ([facility]) Diverticulitis Gastric ulcer GERD (gastroesophageal reflux disease) HTN (hypertension) ([facility]) Osteoporosis ([facility]) Pancreatitis Rheumatic fever ALLERGIES: Allergies [...] IMAGING: June 05, 2024 x-rays from the [facility] AP pelvis and lateral of the right hip demonstrate an intact hip joint space. There are no fractures detected. The bone has an osteopenic appearance.The joint spaces are symmetric. There is no obvious effusion or soft tissue swelling. Impression: No acute findings on x-rays of the right hip Hemal [place] I reviewed an MRI of the right hip from the [facility]. There is a sacral insufficiencyfracture and suspected insufficiency fractures of the right superior and inferior pubic rami. The right hip joint is intact and there are no fractures in the hip. There is loss of articular cartilage in the right hip consistent with arthritis. ASSESSMENT: ICD-10-CM 1. Chronic right hip pain M25.551 G89.29 2. Sacral insufficiency fracture, initial encounter ([facility]) M84.48XA 3. Closed fracture of [...] Dr. Sheth/ashley Sheth D.O. documented in this encounterNevada Regional Medical [id number] History of Present illness Narrative* Cleve Sheth DO - 06/05/2024 1:30 PM EDT Images from the original note were not included. HISTORY OF PRESENT ILLNESS: Sheila Mac is an 74 y.o. @ female. Chief complaint RT hip pain New problem: RT hip pain. Dr Thompson referral. XR [facility] 06/03/24 RT hip pain x 2-3 months, worsened on 05/31 after going to the grocery store. Denies injury. She hadinjections at [facility] in April without relief. She saw Dr Thompson 06/02 and 06/04, given IM injections-no relief. She is having difficulty walking, using a walker. Pain with WB. Pain in the buttock, hamstringand inner thigh. Pain can be aching and sharp. Difficulty with sit to stand. Pain 1/10 at rest, goes to 10+/10 with WB. 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 Taking TYL, using icy hot. Saw Dr Thompson 06/02 and 06/04. XR done at [facility] 06/02/24. Using hot icy hot. Given [...] Medical History: Diagnosis Date Diabetes ([facility]) Diverticulitis Gastric ulcer GERD (gastroesophageal reflux disease) HTN (hypertension) ([facility]) Osteoporosis ([facility]) Pancreatitis Rheumatic fever ALLERGIES: Allergies [...] report of the right hip from the [facility] dated May of 2024 slightnarrowing of [...] Dr. Sheth/ashley Sheth D.O. documented in this encounterNevada Regional Medical [id number] Telephone encounter Note* Telephone Encounter - Bella Saavedra - 06/05/2024 11:40 AM EDT $40.00 copay / Prior auth needed. [facility] [id number] Miscellaneous Notes* Telephone Encounter - Bella Saavedra - 06/05/2024 11:40 AM EDT $40.00 copay / Prior auth needed. documented in this encounterNevada Regional Medical [id number] Procedure [facility] [...] authenticated by: DANIEL PINEDA Date: 2022-07-25 13:25[facility] [id number] NotePROCEDURE: XR FOOT LT MIN 3 VIEWS HISTORY: Pain in left foot ; acute plantar pain COMPARISON: None. FINDINGS: BONES:No fracture, acute abnormality, or significant arthropathy. SOFT TISSUES:No visible soft tissue swelling. EFFUSION:None visible. OTHER: Negative. IMPRESSION: 1. No acute abnormality, significant degenerative changes, or findings to account for patient's symptoms. Electronically authenticated by: DANIEL PINEDA Date: 2022-05-11 12:51[facility]06-07-2022 NotePROCEDURE: XR KNEE LT 4V or > COMPARISON: None. HISTORY: Osteoarthritis FINDINGS: BONES:No fracture, acute abnormality, or significant arthropathy. SOFT TISSUES:Negative. No visible soft tissue swelling. EFFUSION:Moderate suprapatellar joint effusion OTHER: Negative. IMPRESSION: Moderate joint effusion Electronically authenticated by: GODWIN BECK Date: 2022-02-14 17:30[facility] HospitalEvaluation noteNo assessment information availableUniversity Hospitals Elyria Medical Center Work Phone: Evaluation note* Diagnosis Onset Date Resolution Status Duodenal diverticulum acuteHiatal herniaacuteIBS (irritable bowel syndrome)acuteScreening for colon cancerCommunity [facility] Work Phone: Evaluation note* Diagnosis Chronic right hip pain- Primary Sacral insufficiency fracture, initial encounter ([facility]) Closed fracture of multiple pubic rami, right, initial encounter ([facility]) documented in this encounter [facility] HealthcareEvaluation [facility]* Diagnosis Paresthesia- Primary Disturbance of skin sensation documented in this encounter [facility] HealthcareEvaluation note* Diagnosis Chronic right hip pain- Primary Sacral insufficiency fracture with routine healing, subsequent encounter Closed fracture of multiple pubic rami, right, initial encounter ([facility]) documented in this encounter [facility] HealthcareEvaluation note* Diagnosis Cervical radiculopathy- Primary Brachial neuritis or radiculitis nos Paresthesia Disturbance of skin sensation documented in this encounter [facility] HealthcareEvaluation note* Diagnosis Left hand pain- Primary Pain in soft tissues of limb Primary osteoarthritis of hand, unspecified laterality documented in this encounter [facility] HealthcareEvaluation note* Diagnosis Chronic right hip pain- Primary documented in this encounter [facility] HealthcareEvaluation note* Diagnosis Vomiting in adult- Primary History of gastric ulcer Chronic GERD Hiatal hernia Diaphragmatic hernia without mention of obstruction or gangrene Dysphagia, unspecified type documented [facility] this encounter [facility] Diagnosis Bright red blood per rectum- Primary Hemorrhage of rectum and anus [facility]* Diagnosis Incontinence of feces, unspecified fecal incontinence type- Primary Diverticular stricture ([facility]) documented in this encounter [facility] SystemHistory and physical note Author Ben Sanchez [facility] February 05, 2024 1:08pmNote Date/TimeMay 2023 1:08pm[place] [address] Gastroenterology H&P Signed Patient: Sheila Mac MR#: [id number] : 1950 Acct:[id number] Age/Sex: 73 / F Adm Date: 4 Loc: Room: Type: [facility] Attending Dr: Ben Sanchez MD Copies to: [...] signed by Ben Sanchez MD> 02/05/24 1308 [facility] Work Phone: History and physical note Author Ben Sanchez [facility] March 26, 2024 10:37amNote Date/TimeJuly 2023 10:37am[place] [address] Gastroenterology H&P Signed Patient: Sheila Mac MR#: [id number] : 1950 Acct:[id number] Age/Sex: 73 / F Adm Date: 4 Loc: Room: Type: [facility] Attending Dr: Bne Sanchez MD Copies to: [...] <Electronically signed by Ben Sanchez MD> 03/26/[address] [place] [address] Work Phone: Hospital Discharge instructionsAmbulatory Orders* Referral to Orthopedic Surgery Location: None [facility] Work Phone: InstructionsNot on filedocumented in this encounter [facility] SystemInstructionsNot on filedocumented in this encounter [facility] SystemInstructionsNot on filedocumented in this encounter [facility] SystemInstructionsNot on filedocumented in this encounter [facility] SystemInstructions* Attachments The following attachments cannot be sent through Care Everywhere. * Hemorrhoids (Brazilian) documented in this encounterProMedica Health SystemInstructionsNot on file documented in this encounterProMedica Health SystemInstructionsNot on file documented in this encounterProMedica Health SystemReason for referral (narrative)No reason for referral information availableUniversity Hospitals Ely[facility] Center Work Phone: Reahhj for visit Narrative* Consultation (Routine) - ClosedSpecialtyDiagnoses / ProceduresReferred By ContactReferred To Contact Neurology Diagnoses Brachial plexopathy Ulnar neuropathy of left upper extremity Procedures DE OFFICE/OUTPATIENT [facility] 60 MINUTES Cleve Sheth DO [address] [address] Phone: tel: fax:[phone] Daniel Patiño MD [address] [place] [address] Phone: tel: fax: Referral IDSGiuliano DateExpiration DateVisits RequestedVisits [id number] Consult and Treat / [facility] Healthcare Summary [...] 022024 9:53am CONSULT DR NEHAL ORTIZ DONE [facility] 03/02 ust 2024 1:29pm Reason for Visit [...] 022024 9:53am CONSULT DR NEHAL ORTIZ DONE [facility] 03/02 ust 2024 1:29pm 1 mo fu [...] 022024 9:53am CONSULT DR NEHAL ORTIZ DONE [facility] 03/02 ust 2024 1:29pm 1 mo fu trigger points/ consider shoulde r inj May 04, 2025 8:05am Unknown May 13, 2025 10:46am Additional Source Comments INFORMATION SOURCE (unrecogn ized section and content) DATE CREATED AUTHOR 11/24/2018 [facility] DATE CREATED AUTHOR AUTHOR'S ORGANIZ ATION 12/19/2022 [facility] DATE CREATED AUTHOR AUTHOR'S ORGANIZ ATION 01/18/2023 [facility] DATE CREATED AUTHOR AUTHOR'S ORGANIZ ATION 08/04/2024 [facility] DATE CREATED AUTHOR AUTHOR'S ORGANIZ ATION 08/12/2024 [facility] DATE CREATED AUTHOR AUTHOR'S ORGANIZ ATION 04/02/2025 [facility] [place] DATE CREATED AUTHOR AUTHOR'S ORGANIZ ATION 05/15/2025 [facility] DATE CREATED AUTHOR AUTHOR'S ORGANIZ ATION 06/24/2025 [facility] DATE CREATED AUTHOR AUTHOR'S ORGANIZ ATION 07/22/2025 [facility] Care Teams (unrecognized sec tion and content) [...] Team MemberRelationshipSpecialtyStart DateEnd Date Krzysztof Thompson MD [address] [place] [phone] PCP - [facility] Medicine01/09/24Team MemberRelationshipSpecialtyStart DateEnd Date Krzysztof Thompson MD [address] [place] [address] [facility] - [facility]01/09/24Team MemberRelationshipSpecialtyStart DateEnd Date Krzysztof Thompson MD [address] [facility] [place] [address] PCP - GeneralFamily Medicine01/09/24Team MemberRelationshipSpecialtyStart DateEnd Date Krzysztof Thompson MD [address] [facility] [place] [address] PCP - GeneralFamily Medicine01/09/24Team MemberRelationshipSpecialtyStart DateEnd Date Krzysztof Thompson MD [address] [facility] [place] [address] PCP - GeneralFamily Medicine01/09/24 Raven Sesay DO [address] [place] [address] Referring WcdxpnculCbwjoadth58/4/24Team MemberRelationshipSpecialtyStart DateEnd Date Krzysztof Thompson MD [address] [facility] [place] [address] PCP - GeneralFamily Medicine01/09/24 Raven Sesay DO [address] [place] [address] Referring BiqtvtrnxCytdsxnlr70/4/24Team MemberRelationshipSpecialtyStart DateEnd Date Krzysztof Thompson MD [address] [facility] [place] [address] PCP - GeneralFamily Medicine01/09/24 Raven Sesay DO [address] [address] Referring XboblhhgwCpqczijra55/4/24Team MemberRelationshipSpecialtyStart DateEnd Date Krzysztof Thompson MD [address] [place] [address] PCP - GeneralFamily Medicine01/09/24 Raven Sesay DO [address] [address] Referring OotimqttrVkicswgyh13/4/24Team MemberRelationshipSpecialtyStart DateEnd Date Krzysztof Thompson MD [address] [place] [address] PCP - GeneralFactly Medicine01/09/24 Raven Sesay DO [address] [place] [address] Referring AyuphmnmaWuhadjvqu53/4/24Team MemberRelationshipSpecialtyStart DateEnd Date Krzysztof Thompson MD PCP - General7Team MemberRelationshipSpecialtyStart DateEnd Date Krzysztof Thompson MD PCP - General7/02/24Team MemberRelationshipSpecialtyStart DateEnd Date Krzysztof Thompson MD PCP - General7/02/24Team MemberRelationshipSpecialtyStart DateEnd Date Krzysztof Thompson MD [facility]03/15/17Team MemberRelationshipSpecialtyStart DateEnd Krzysztof Flores MD [facility]03/15/17 Team Status: Inactive Member Role Status [...] 13, 2025Team MemberRelationshipSpecialtyStart DateEnd Krzysztof Flores MD [place] [address]Team MemberRelationshipSpecialtyStart DateEnd Krzysztof Flores MD PCP - [...] bleeding, last colon with Dr. Sanchez at [facility] in 4Reason CommentsEncopresisBowel Incontinence, last seen [...] BE BASED ON THE PRIMARY CLINICAL RECORDS. Induction Manager [facility]. provides no warranty or guarantee of the accuracy or completeness of information in this document.
== END 2025-09-08 09:06 | disposition home or self-care (01) ==
LOC: CARD 09:05
PROVIDERS: PCP Family Medicine; Visit Provider Family Medicine
DX: R06.02 Shortness of breath (principal)
CPT/HCPCS: 93306; 93356